=== PATIENT | female | born 1950 | race Caucasian/White ===

== ENCOUNTER → 2019-09-09 08:20 | Outpatient (BNVA) | payer MEDICARE, SELFPAY | PROVIDERS: Family Provider Family Medicine; PCP Family Medicine; Visit Provider Nurse Practitioner Psychiatric/Mental Health | DX: F33.3 Major depressive disorder, recurrent, severe with psychotic symptoms (principal); F43.12 Post-traumatic stress disorder, chronic; G47.30 Sleep apnea, unspecified | CPT/HCPCS: 99214; 99215 ==

== ENCOUNTER 2019-09-24 22:05 | Emergency (ER) | payer MEDICARE, SELFPAY ==
[2019-09-24 22:13] VITALS: BP 224/95; PULSE 101; RESP 18; TEMP 36.7; BMI 38.7
--- NOTE | 2019-09-24 22:21 | ED_ITS ---
Entered by Halle Alfonso, acting as scribe for HPI - General Adult General: Chief complaint: General Medical Stated complaint: high bp Time Seen by Provider: 09/24/19 22:21 Source: patient Mode of arrival: wheelchair Limitations: no limitations History of Present Illness: HPI narrative: Myesha is a very nice 68-year-old female who comes in with a primary complaint of high blood pressure. She states that her blood pressure is out of control ranging as high as over 200 systolic tonight. She states that she has had a headache primarily that is what prompted her to check this. She states that she may have had some fluttering or vague chest discomfort that lasted just a few seconds but otherwise denies any chest pain, shortness of breath, vomiting or upper back pain. She is not been diaphoretic. She also complains of some generalized abdominal discomfort. She states this is been intermittent for the past few days along with nausea. She is is because of this she did not take her blood pressure medications this morning. She knows that that is why her blood pressure is elevated but she still feels nauseated and does not want to take these medications. MD complaint: high blood pressure Location: head and chest Radiation: non-radiation Severity: moderate Pain Consistency: constant Associated symptoms: Reports chest pain, fevers/chills, headache(s) and other (abdomen pain) Treatments prior to arrival: none Review of Systems Card: Reports: chest pain Neuro: Reports: headache [facility] ED PFSH: Statuses (acute, chronic, etc) shown below reflect problem list status as previously entered and may not be historically accurate Social History (Updated 09/09/19 @ 08:56 by Lisa Simmons LPN) Smoking and tobacco status: former smoker Quit status (tobacco): has quit using tobacco Year quit tobacco: 2005 Second hand smoke exposure: No Course Vital Signs: Vital signs: Vital Signs Temperature 98.1 F 09/24/19 22:13 Pulse Rate 86 09/25/19 02:02 Respiratory Rate 20 H 09/25/19 02:02 Blood Pressure 190/74 09/25/19 02:02 Pulse Oximetry 99 09/25/19 02:02 MDM - General Adult MDM Narrative: Medical decision making narrative: Maribell is a 68-year-old female who comes in with multiple complaints. Her primary complaint is that of high blood pressure causing what she feels primarily is a headache. She has some vague palpitations or chest discomfort but this only lasted for a short time. She also has nausea and some vague abdominal discomfort and this is why she did not take her blood pressure medications today. Patient CT of the head is normal CT abdomen pelvis shows nonspecific issues that she wants to follow-up on I see no evidence of acute blockage of her kidneys and there is no sign of bowel obstruction or focal GI problem which we were most concerned about. They were aware of her renal masses and her doctor is watching them. The patient's EKGs are at baseline with a right bundle branch block and her troponin has not trended up to rule in for a non-STEMI. Her blood pressure is down at this time at 176/95 with just 1 dose of labetalol. I have offered and recommended to put the patient in the hospital for a formal rule out and for stress testing but she refuses. She states to be more comfortable at home and does not want to come in for further testing. She does not believe her chest discomfort to be anything of significance. I have offered again and told her that this could be the something of something more severe but despite this she wants to go home understanding that this could be a threat to her life if a high heart problem. The patient agrees to go home and take her blood pressure medicines first thing this morning and she will follow-up with Dr. Gandhi and make an appointment to see Dr. Chen. It is possible she may have a UTI so I will place her on Omnicef and give her Zofran for her nausea but at this time she states she is feeling much better. She does still have a small headache and I will give her something for that as well. Lab Data: Attestation: I reviewed the patient's lab results. Labs: Lab Results 09/24/19 09/25/19 09/25/19 Range/Units 22:40 00:19 00:19 WBC 10.2 H (4.0-10.0) 10^3/ uL RBC 4.05 L (4.1-5.3) 10^6/u L Hgb 11.9 (11.5-15.3) g/dL Hct 35.8 L (37.0-47.0) % MCV 88.4 (81-99) fL MCH 29.4 (28.0-34.0) pg MCHC 33.2 (30.0-36.0) g/dL RDW 13.3 (12.1-15.1) % Plt Count 283 (130-400) 10^3/c mm MPV 9.3 (7.4-10.4) fL Neut % (Auto) 84.9 % Lymph % (Auto) 8.3 % Karnes % (Auto) 6.2 % Eos % (Auto) 0.0 % Baso % (Auto) 0.1 % Neut # (Auto) 8.7 H (1.8-7.7) 10^3/u L Lymph # (Auto) 0.8 (0.8-4.8) 10^3/u L Karnes # (Auto) 0.6 (0.2-0.9) 10^3/u L Eos # (Auto) 0.0 (0.0-0.8) 10^3/u L Baso # (Auto) 0.0 (0.0-0.1) 10^3/u L Nucleated RBC % (a uto) 0 % Nucleated RBCs # 0.0 /100WBC Sodium 139 (136-145) mmol/L Potassium 3.2 L (3.5-5.1) mmol/L Chloride 93 L (98-107) mmol/L Carbon Dioxide 29 (22-29) mmol/L Anion Gap 20.2 H (5-19) BUN 16 (8-23) mg/dL Creatinine 1.0 H (0.5-0.9) mg/dL GFR Calculation 54.8 L (90-130) mL/min Glucose 379 H (74-106) mg/dL Calcium 11.2 H (8.5-10.5) mg/dL Magnesium 1.7 (1.7-2.3) mg/dL Total Bilirubin 0.6 (0.15-1.2) mg/dL AST 53 H (0-32) U/L ALT 36 H (0-33) U/L Alkaline Phosphata se 152 H (35-105) IU/L Troponin T Baselin e 29 H (0-10) ng/mL Troponin T 120 Min [place] (0-10) ng/mL Delta Troponin T (0-10) ABS# NT-Pro-B Natriuret Pep 716 H (0-125) pg/mL Total Protein 8.2 (6.6-8.7) g/dL Albumin 4.3 (3.5-5.2) g/dL Globulin 3.9 (1.3-4.6) g/dL Urine Color (Yellow) Urine Appearance (CLEAR) Urine pH (5-7) Ur Specific Gravit y (1.005-1.030) Urine Protein (Negative) Urine Glucose (UA) (Normal) Urine Ketones (Negative) Urine Occult Blood (Negative) Urine Nitrate (Negative) Urine Bilirubin (NEGATIVE) Urine Urobilinogen (Negative) mg/dL Ur Leukocyte Dorota ase (Negative) Urine RBC (0-2) /hpf Urine WBC (0-5) /hpf Ur Squamous Epith Cells (0-5) Ur Transition Epit h Cell /hpf Urine Bacteria (NONE) Hyaline Casts 09/25/19 09/25/19 Range/Units 00:19 02:04 WBC (4.0-10.0) 10^3/ uL RBC (4.1-5.3) 10^6/u L Hgb (11.5-15.3) g/dL Hct (37.0-47.0) % MCV (81-99) fL MCH (28.0-34.0) pg MCHC (30.0-36.0) g/dL RDW (12.1-15.1) % Plt Count (130-400) 10^3/c mm MPV (7.4-10.4) fL Neut % (Auto) % Lymph % (Auto) % Karnes % (Auto) % Eos % (Auto) % Baso % (Auto) % Neut # (Auto) (1.8-7.7) 10^3/u L Lymph # (Auto) (0.8-4.8) 10^3/u L Karnes # (Auto) (0.2-0.9) 10^3/u L Eos # (Auto) (0.0-0.8) 10^3/u L Baso # (Auto) (0.0-0.1) 10^3/u L Nucleated RBC % (a uto) % Nucleated RBCs # /100WBC Sodium (136-145) mmol/L Potassium (3.5-5.1) mmol/L Chloride (98-107) mmol/L Carbon Dioxide (22-29) mmol/L Anion Gap (5-19) BUN (8-23) mg/dL Creatinine (0.5-0.9) mg/dL GFR Calculation (90-130) mL/min Glucose (74-106) mg/dL Calcium (8.5-10.5) mg/dL Magnesium (1.7-2.3) mg/dL Total Bilirubin (0.15-1.2) mg/dL AST (0-32) U/L ALT (0-33) U/L Alkaline Phosphata se (35-105) IU/L Troponin T Baselin e (0-10) ng/mL Troponin T 120 Min [place] 31.88 H (0-10) ng/mL Delta Troponin T 2.88 (0-10) ABS# NT-Pro-B Natriuret Pep (0-125) pg/mL Total Protein (6.6-8.7) g/dL Albumin (3.5-5.2) g/dL Globulin (1.3-4.6) g/dL Urine Color Yellow (Yellow) Urine Appearance Clear (CLEAR) Urine pH 6 (5-7) Ur Specific Gravit y 1.010 (1.005-1.030) Urine Protein 2+ H (Negative) Urine Glucose (UA) 4+ H (Normal) Urine Ketones Negative (Negative) Urine Occult Blood 3+ H (Negative) Urine Nitrate Negative (Negative) Urine Bilirubin Neg (NEGATIVE) Urine Urobilinogen Norm (Negative) mg/dL Ur Leukocyte Dorota ase Negative (Negative) Urine RBC 10-15 H (0-2) /hpf Urine WBC 0-4 H (0-5) /hpf Ur Squamous Epith Cells 5-10 H (0-5) Ur Transition Epit h Cell 0-4 /hpf Urine Bacteria 1+ H (NONE) Hyaline Casts 0-4 H EKG Data^: EKG 1: Attestation: I personally reviewed and interpreted this EKG as follows: EKG interpretation date: 09/24/19 EKG interpretation time: 22:40 Interpretation: Normal sinus rhythm at 90 beats a minute, first-degree AV block, right bundle branch block, LVH, similar to previous. Computer generated interpretation: Head CT 09/24/19 23:58 IMPRESSION: No acute intracranial abnormality. Radiation Dose CTDIVOL = (mGy): DLP = 1707 (mGy-cm) EKG 2: Attestation: I personally reviewed and interpreted this EKG as follows: EKG interpretation date: 09/25/19 EKG interpretation time: 00:53 Interpretation: Normal sinus rhythm at 84 beats a minute, LVH, right bundle branch block, first-degree AV block, no other acute findings. Similar to previous. Computer generated interpretation: Head CT 09/24/19 23:58 IMPRESSION: No acute intracranial abnormality. Radiation Dose CTDIVOL = (mGy): DLP = 1707 (mGy-cm) EKG 3: Attestation: I personally reviewed and interpreted this EKG as follows: EKG interpretation date: 09/25/19 EKG interpretation time: 04:30 Interpretation: Normal sinus rhythm at 87 beats a minute, first-degree AV block, right bundle branch block, LVH, unchanged from previous. Computer generated interpretation: Head CT 09/24/19 23:58 IMPRESSION: No acute intracranial abnormality. Radiation Dose CTDIVOL = (mGy): DLP = 1707 (mGy-cm) Discharge Plan Discharge Patient Disposition: Home, Self-Care Clinical Impression: Acute UTI Hypertension Qualifiers: Hypertension type: essential hypertension Qualified Code(s): I10 - Essential (primary) hypertension Abdominal pain Qualifiers: Abdominal location: generalized Qualified Code(s): R10.84 - Generalized abdominal pain Condition: Stable Prescriptions: New Zofran 4 mg tablet 4 mg PO DAILY PRN (Reason: nausea and vomiting) 5 Days RF: 0 cefdinir 300 mg capsule 300 mg PO Q12H 10 Days Qty: 20 RF: 0 No Action aspirin 325 mg tablet 325 mg PO .QHS RF: 0 tramadol 50 mg tablet 50 mg PO Q8H PRN (Reason: pain) RF: 0 Novolin 70/30 U-100 Insulin 100 unit/mL (70-30) suspension 80 unit SUBCUT BID RF: 0 furosemide [Lasix] 20 mg tablet 30 mg PO .every other day RF: 0 metoprolol tartrate 50 mg tablet 100 mg PO BID RF: 0 hydrocodone-acetaminophen 5-300 mg tablet 1 tab PO TID PRNRF: 0 levothyroxine 175 mcg capsule 175 mcg PO DAILY RF: 0 tizanidine 4 mg capsule 4 mg PO .COMPLEX PRNRF: 0 pantoprazole [Protonix] 40 mg tablet,delayed release (DR/EC) 40 mg PO BID RF: 0 potassium chloride 20 mEq tablet extended release 20 meq PO BID RF: 0 albuterol sulfate [ProAir HFA] 90 mcg/actuation HFA aerosol inhaler 2 puff INHALATION Q6H PRNRF: 0 aripiprazole [Abilify] 5 mg tablet 5 mg PO DAILY Qty: 30 RF: 1 buspirone 5 mg tablet 5 mg PO BID Qty: 60 RF: 1 duloxetine [Cymbalta] 60 mg capsule,delayed release(DR/EC) 60 mg PO QAM Qty: 30 RF: 1 duloxetine [Cymbalta] 30 mg capsule,delayed release(DR/EC) 30 mg PO QAM Qty: 30 RF: 1 Discharge Orders: Discharge Order (Routine); Ordered 09/25/19 Ordered By: Candice Menjivar Referrals: Jada Gandhi MD [Primary Care Provider] - 1-3 days Dennis Chen MD [Physician] - 1-3 days Discharge Diet: Advance as tolerated Discharge Activity: Increase activity as tolerated Patient Instructions: Urinary Tract Infection in Women (ED), Abdominal Pain (ED), Hypertension (ED) Activity Restrictions/Additional Instructions: Please return to the ER immediately for any of the signs or symptoms listed on your discharge instruction sheets, worsening/changing of your symptoms, you are not getting better as quickly as expected, or for ANY other cause or concerns. Be certain to follow-up with Dr. Chen concerning your kidney masses. If you develop worsening abdominal pain or have any other new symptoms such as fever or vomiting please return to the ER immediately. Take your blood pressure medications as prescribed and please do not miss any doses. It is possible you that you have a UTI so take the antibiotics as I have prescribed. If for any reason you feel worse please return to the ER immediately for recheck. I have recommended and offered to keep you for further cardiac testing but you have declined, of course any heart problem could be life-threatening so if your symptoms change or worsen in any way you are more than welcome to return to the ER for further evaluation and care. Coding Level of Care Code ED Heavy Forging Machine Operator for Chg Fwd The documentation recorded by the Kaden varner Bridget Annette, accurately reflects the service I personally performed and the decisions made by me, Candice Menjivar Sep 24, 2019 22:05
--- NOTE | 2019-09-24 22:25 | ECG_ITS ---
Measurements Intervals [place] Rate: 90 P: 61 CA: 238 QRS: -70 QRSD: 162 T: 38 QT: 464 QTc: 568 SINUS RHYTHM WITH FIRST DEGREE AV BLOCK RIGHT BUNDLE BRANCH BLOCK [120+ ms QRS DURATION, UPRIGHT V1, 40+ ms S IN I/aVL/V4/V5/V6] LEFT ANTERIOR FASCICULAR BLOCK [QRS AXIS <= -45, QR IN I, RS IN II] VOLTAGE CRITERIA FOR LVH [MEETS CRITERIA IN ONE OF: R(aVL), S(V1), R(V5), R (V5/V6)+S(V1)] POSSIBLE SEPTAL MYOCARDIAL INFARCTION , OF INDETERMINATE AGE [30 ms Q WAVE IN V1/V2] Compared to ECG 03/11/2019 18:34:07 Left ventricular hypertrophy now present Myocardial infarct finding now present Electronically Signed On 09-25-2019 11:31:53 [employer] by Min Tipton M.D. [id number]
[2019-09-24 23:01] LABS: Troponin(5th) Baseline 29 ng/mL (0-10)
--- NOTE | 2019-09-24 23:56 | XR_ITS ---
WS: [id number] Portable AP upright chest, 09/25/2019 Clinical Data: cough Comparison: Portable chest, 07/30/2019 Findings: No nodules, masses or effusions are seen. The heart is slightly enlarged. The pulmonary vas cularity is not increased. No pneumonia or pneumothorax is seen. The aortic arch and descending aorta show calcification and tortuosity. Monitor leads on the chest wall. XR/XR chest 1V portable [id number] Impression: Cardiomegaly and atherosclerosis.
--- NOTE | 2019-09-24 23:58 | CTR_ITS ---
PROCEDURE INFORMATION: Exam: CT Head Without Contrast Exam date and time: 09/24/2019 12:15 AM Age: 68 years old Clinical indication: Pain; Altered mental status/memory loss; Headache; Additional info: Rainey/ams TECHNIQUE: Imaging protocol: Computed tomography of the head without contrast. Total DLP: 1707 mGy-cm Radiation optimization: All CT scans at this facility use at least one of these dose optimization techniques: automated exposure control; mA and/or kV adjustment per patient size (includes targeted exams where dose is matched to clinical indication); or iterative reconstruction. COMPARISON: CT head wo con* [id number] 07/02/2019 10:19 PM FINDINGS: Brain: Normal. No hemorrhage. Unremarkable white matter. No mass effect. Ventricles: Normal. No ventriculomegaly. Bones/joints: Unremarkable. No acute fracture. Sinuses: Visualized sinuses are unremarkable. No fluid levels. Mastoid air cells: Visualized mastoid air cells are well aerated. Soft tissues: Unremarkable. CT/CT head wo con* [id number] IMPRESSION: No acute intracranial abnormality. Radiation Dose CTDIVOL = (mGy): DLP = 1707 (mGy-cm)
--- NOTE | 2019-09-25 00:25 | ECG_ITS ---
Measurements Intervals [place] Rate: 87 P: 37 MD: 243 QRS: -62 QRSD: 152 T: 32 QT: 438 QTc: 529 SINUS RHYTHM WITH FIRST DEGREE AV BLOCK RIGHT BUNDLE BRANCH BLOCK [120+ ms QRS DURATION, UPRIGHT V1, 40+ ms S IN I I/aVL/V4/V5/V6] LEFT ANTERIOR FASCICULAR BLOCK [QRS AXIS <= -45, QR IN I, RS IN II] LEFT VENTRICULAR HYPERTROPHY AND ST-T CHANGE [VOLTAGE CRITERIA PLUS ST/T ABN ABNORMALITY] POSSIBLE SEPTAL MYOCARDIAL INFARCTION , OF INDETERMINATE AGE [30 ms Q WAVE IN V1 V1/V2] Compared to ECG 03/11/2019 18:34:07 Left ventricular hypertrophy now present ST (T wave) deviation now present Myocardial infarct finding now present Electronically Signed On 09-25-2019 11:37:43 ANALYST PROGRAMMER by Min Tipton M.D. [id number]
[2019-09-25 00:30] LABS: Basophils % 0.1 %; Hematocrit 35.8 % (37.0-47.0); Hemoglobin 11.9 g/dL (11.5-15.3); Lymphocytes # 0.8 10^3/uL (0.8-4.8); Lymphocytes % 8.3 %; Mean Corpuscular HGB Conc 33.2 g/dL (30.0-36.0); Mean Corpuscular Hemoglobin 29.4 pg (28.0-34.0); Mean Corpuscular Volume 88.4 fL (81-99); Mean Platelet Volume 9.3 fL (7.4-10.4); Monocytes # 0.6 10^3/uL (0.2-0.9); Monocytes % 6.2 %; Neutrophils # 8.7 10^3/uL (1.8-7.7); Neutrophils % 84.9 %; Nucleated Red Blood Cells % 0 %; Platelet Count 283 10^3/cmm (130-400); Red Blood Count 4.05 10^6/uL (4.1-5.3); Red Cell Distribution Width 13.3 % (12.1-15.1); White Blood Count 10.2 10^3/uL (4.0-10.0)
[2019-09-25 00:51] LABS: Troponin 5 2HR 31.88 ng/mL (0-10); Troponin 5 2HR Delta 2.88 ABS# (0-10)
--- NOTE | 2019-09-25 00:52 | PC.NURSE ---
EKG done at 0050 and shown to ER doctor.
[2019-09-25 01:00] LABS: Alanine Aminotransferase 36 U/L (0-33); Albumin Level 4.3 g/dL (3.5-5.2); Alkaline Phosphatase 152 IU/L (35-105); Anion Gap 20.2 (5-19); Aspartate Amino Transferase 53 U/L (0-32); Blood Urea Nitrogen 16 mg/dL (8-23); Calcium 11.2 mg/dL (8.5-10.5); Carbon Dioxide 29 mmol/L (22-29); Chloride 93 mmol/L (98-107); Globulin 3.9 g/dL (1.3-4.6); Glomerular Filtration Rate 54.8 mL/min (90-130); Glucose 379 mg/dL (74-106); Magnesium 1.7 mg/dL (1.7-2.3); NT Pro B Type Natriuretic Pept 716 pg/mL (0-125); Potassium 3.2 mmol/L (3.5-5.1); Sodium 139 mmol/L (136-145); Total Bilirubin 0.6 mg/dL (0.15-1.2); Total Protein 8.2 g/dL (6.6-8.7)
--- NOTE | 2019-09-25 01:49 | CTR_ITS ---
PROCEDURE INFORMATION: Exam: CT Abdomen And Pelvis With Contrast Exam date and time: 09/25/2019 1:56 AM Age: 68 years old Clinical indication: Abdominal pain; Acute; Prior surgery; Surgery date: 6+ months; Surgery type: Hysterectomy TECHNIQUE: Imaging protocol: Computed tomography of the abdomen and pelvis with intravenous contrast. Total DLP: 2057.78 mGy-cm Radiation optimization: All CT scans at this facility use at least one of these dose optimization techniques: automated exposure control; mA and/or kV adjustment per patient size (includes targeted exams where dose is matched to clinical indication); or iterative reconstruction. Contrast material: VISI; Contrast volume: 95 ml; Contrast route: 20G; COMPARISON: CT abdomen pelvis w con* [id number] 10/06/2018 5:58 PM FINDINGS: Lungs: Continued slight stranding in the lung bases. Calcified granuloma in the lateral left lung base again evident. Heart: Interval cardiac prominence. Liver: No change in the 7 mm low-density mass in the medial dome of the liver. No new liver mass. Gallbladder and bile ducts: Interval cholecystectomy. No biliary ductal dilatation. Pancreas: Pancreas still unremarkable. Spleen: Still no splenomegaly. Adrenals: Still no adrenal mass. Kidneys and ureters: Continued small stone in the right lower and left upper kidney. No obvious change in size of the 12 mm mass arising from the posterior margin of the left upper kidney, but apparent increase in density within it from 18 HU to 26 HU. Continued approximately 14 mm intracortical mass in the lower left kidney. Interval slight enlargement of the 7 mm mass arising from the margin of the left lower renal pole. Subcentimeter foci of decreased density still present in both renal cortices in addition to other subcentimeter masses arising from left renal margins. Interval minimal dilatation of parts of both renal collecting systems. No ureteral stone or dilatation. Stomach and bowel: Interval appearance of medication in the proximal stomach. Still no gastric distension. Still no obstruction. Appendix: Continued normal appendix. Intraperitoneal space: Still no free air. Vasculature: Continued atherosclerosis. Still no aortic aneurysm. Lymph nodes: Continued small calcified nodes along the distal esophagus. Continued almost complete fatty replacement of an enlarged left external iliac node and smaller nodes along the left side of the aortic bifurcation. No interval suspicious abdominal or pelvic nodes. Bladder: Still no apparent bladder disease. Reproductive: Hysterectomy again evident. Bones/joints: Old compression fractures again evident. Continued prominent degeneration of several discs and lesser degrees of degeneration of other discs. Prominent degeneration of multiple lumbar facet joints still present. Interval slight worsening of the mild left convex lumbar scoliosis. Soft tissues: Continued soft tissue calcifications along the superior margin of the left greater trochanter. Interval appearance of the minimal supraumbilical hernia containing fat. CT/CT abdomen pelvis w con* [id number] IMPRESSION: 1. Interval minimal dilatation of parts of both renal collecting systems, age unknown. No obstructing ureteral stone. No change in the small stone in each kidney. 2. Interval apparent increase in density within the 12 mm left upper renal mass and slight enlargement of a subcentimeter left lower renal mass, but no significant change in the other renal masses or foci of decreased density within the renal cortices. Considering the density change in the left upper renal mass, recommend follow-up renal MR without and with contrast or CT without and with contrast. MR is preferred for masses under 1.5 cm. 3. Continued subcentimeter probable cyst in the dome of the liver. 4. Interval cholecystectomy. Other findings detailed above. Radiation Dose CTDIVOL = (mGy): DLP = 2057.78 (mGy-cm)
[2019-09-25 02:02] VITALS: BP 190/74; PULSE 86; RESP 20; O2SAT 99
[2019-09-25] MEDS: iodixanol 320 mg/mL 100mL Btl IV (02:36)
[2019-09-25 02:47] LABS: Bilirubin Urine Neg (NEGATIVE); Blood Urine 3+ (Negative); Glucose Urine UA 4+ (Normal); Ketones Urine Negative (Negative); Leukocyte Esterase Urine Negative (Negative); Nitrate Urine Negative (Negative); Protein Urine 2+ (Negative); Urine Appearance Clear (CLEAR); Urine Color Yellow (Yellow); Urobilinogen Urine Norm (Negative); pH Urine 6 (5-7)
[2019-09-25 02:50] LABS: Bacteria Urine 1+; Transitional Epi Cells Urine 0-4 /hpf; WBC Urine 0-4 /hpf (0-5)
[2019-09-25 02:51] LABS: Add Urine Culture? Yes; Hyaline Casts Urine 0-4
[2019-09-25] MEDS: labetalol 5 mg/mL SDV 20mL 10 MG IVP (03:07)
--- NOTE | 2019-09-25 04:25 | ECG_ITS ---
Measurements Intervals [place] Rate: 84 P: 50 TN: 224 QRS: -70 QRSD: 169 T: 32 QT: 506 QTc: 601 SINUS RHYTHM WITH FIRST DEGREE AV BLOCK RIGHT BUNDLE BRANCH BLOCK [120+ ms QRS DURATION, UPRIGHT V1, 40+ ms S IN I/aVL/V4/V5/V6] LEFT ANTERIOR FASCICULAR BLOCK [QRS AXIS <= -45, QR IN I, RS IN II] VOLTAGE CRITERIA FOR LVH [MEETS CRITERIA IN ONE OF: R(aVL), S(V1), R(V5), R (V5/V6)+S(V1)] POSSIBLE SEPTAL MYOCARDIAL INFARCTION , OF INDETERMINATE AGE [30 ms Q WAVE IN V1/V2] Compared to ECG 03/11/2019 18:34:07 Left ventricular hypertrophy now present Myocardial infarct finding now present Electronically Signed On 09-25-2019 11:37:16 [employer]ING CUTTER by Min Tipton M.D. [id number]
--- NOTE | 2019-09-25 04:40 | PC.NURSE ---
EKG done at 0430 and shown to ER doctor.
--- NOTE | 2019-09-25 04:43 | PC.NURSE ---
Noticed while doing patient's EKG patient seemed a little confused and seemed to struggle with instructions and tried reaching for the EKG leads thinking that they were water. I did post the question if she is able to have water. Informed nurse of observations.
[2019-09-25 05:17] VITALS: BP 190/99; PULSE 87; RESP 25
[2019-09-25] MEDS: ondansetron 2 mg/ML SDV 2 mL 4 MG IVP (05:30)
[2019-09-25] MEDS: HYDROcodone-acetaminophen 5-325 mg Tablet 1 TAB PO (05:30)
[2019-09-25] MEDS: cefTRIAXone 1,000 MG in sodium chloride 0.9% (plus) 50 ML 100 MG IV (05:30)
--- NOTE | 2019-09-25 10:05 | DCPLANNER ---
retail merchandising manager had message to schedule a follow up appointment for patient with Dr. Chen. retail merchandising manager called the office of Dr. Chen, spoke with Megha. retail merchandising manager gave clinic patients information, pillowcase turner was told that patients information would be printed and given to Shannan. Clinic will call patient with appointment information. retail merchandising manager will call for appointment information.
--- NOTE | 2019-09-26 15:33 | DCPLANNER ---
Patient has an appointment scheduled for , October 16, [address] at 2:[address] Chen.
--- NOTE | 2019-11-05 15:30 | DCPLANNER ---
appointment scheduled for 10.16.29 has been rescheduled.
== END 2019-09-25 05:40 | disposition home or self-care (01) ==
PROVIDERS: Emergency Provider Emergency Medicine; Family Provider Family Medicine; PCP Family Medicine
DX: I10 Essential (primary) hypertension (principal); N39.0 Urinary tract infection, site not specified; Z79.82 Long term (current) use of aspirin; Z79.4 Long term (current) use of insulin; Z87.891 Personal history of nicotine dependence
CPT/HCPCS: 36415; 70450; 71045; 74177; 80053; 81001; 83735; 83880; 84484; 85025; 87086; 93005; 96365; 96374; 99283; A9270; J0696; J2405; J3490; Q9967

== ENCOUNTER → 2019-10-02 07:59 | Outpatient (BNVA) | payer MEDICARE, SELFPAY | PROVIDERS: Family Provider Family Medicine; PCP Family Medicine; Visit Provider Anesthesiology | DX: G89.29 Other chronic pain (principal); M54.5 Low back pain; M79.651 Pain in right thigh; M79.652 Pain in left thigh; R10.84 Generalized abdominal pain; Z79.891 Long term (current) use of opiate analgesic | CPT/HCPCS: 99214 ==

== ENCOUNTER 2019-10-12 09:24 | Inpatient (IN) | payer MEDICARE, SELFPAY ==
[2019-10-12] VITALS (45 sets, daily range): BP systolic 66–153; BP diastolic 36–80; PULSE 14–81; RESP 6–75; TEMP 36.4–36.6; O2SAT 93–100; BMI 38.2
--- NOTE | 2019-10-12 09:37 | ED_ITS ---
Entered by Halle Alfonso, acting as scribe for Karma Garner MD HPI - Weakness General: Chief complaint: Nausea/Vomiting/Diarrhea Stated complaint: Low blood pressure Time Seen by Provider: 10/12/19 09:31 Source: patient and family (spouse) Mode of arrival: wheelchair Limitations: no limitations History of Present Illness: MD Complaint: generalized weakness and difficulty walking Onset (ago): day(s) (today) Duration: constant and progressively worsening Migration: none Severity: moderate Quality: sharp Relieving factors: none Exacerbating factors: movement and exertion Associated symptoms: Reports other (diarrhea,abdomen pain) Review of Systems General: Reports: 10 or more systems reviewed and unremarkable except in HPI and below Const: Reports: body aches and fatigue Card: Reports: lightheadedness GI: Reports: abdominal pain and diarrhea Neuro: Reports: difficulty walking PFSH ED PFSH: Surgical History (Updated 10/02/19 @ 08:54 by Michael Lozano MD) History of cardiac cath History of hysterectomy History of knee replacement History of thyroid surgery Social History Smoking and tobacco status: never smoked Quit status (tobacco): has quit using tobacco Year quit tobacco: 2005 Second hand smoke exposure: No Physical Exam Const: COMMON NORMALS: no apparent distress and oriented x3 GENERAL APPEARANCE: ill appearing HENMT: COMMON NORMALS: normocephalic and head/scalp atraumatic HEAD & SCALP: normocephalic and atraumatic Eye: COMMON NORMALS: PERRL and EOMs intact bilaterally PUPIL: Yes PERRL Neck/C-Spine: COMMON NORMALS: full ROM and supple Chest: COMMONS NORMALS: inspection of chest normal and palpation of chest normal Resp: COMMON NORMALS: normal respiratory effort, no retractions, no use of accessory muscles and clear to auscultation bilaterally AUSCULTATION: clear to auscultation bilaterally Cardio: COMMON NORMALS: regular rate, regular rhythm and no murmurs RATE: regular rate RHYTHM: regular rhythm GI: COMMON NORMALS: normal to inspection, nondistended, normoactive bowel sounds, soft to palpation, non-tender and no masses PALPATION: Yes soft Extremity: COMMON NORMALS: normal to inspection and full ROM Neuro: COMMON NORMALS: oriented x3, moves all extremities and no focal motor deficits Psych: COMMON NORMALS: mental status grossly normal, thought process normal and cooperative THOUGHT PROCESS: normal thought process Skin: COMMON NORMALS: no rashes or lesions noted and no wounds GENERAL SKIN EXAM: no rashes or lesions noted Course Vital Signs: Vital signs: Vital Signs Temperature 97.5 F L 10/12/19 09:30 Pulse Rate 75 10/12/19 09:30 Respiratory Rate 20 H 10/12/19 09:30 Blood Pressure 93/48 10/12/19 11:01 Pulse Oximetry 94 10/12/19 09:30 MDM - Weakness MDM Narrative: Medical decision making narrative: Patient presents with vomiting and diarrhea likely causing a dehydration. Patient hypotension here is improving with IV fluids. She does have an elevated lactate likely due to dehydration. Her white count is normal and she has no fever. I spoke to hospitalist will hold off on antibiotics at this time per her request to see if patient does respond to fluids. She has no abdominal pain. Will admit to the ICU to Dr. colbert Lab Data: Labs: Lab Results 10/12/19 10/12/19 10/12/19 Range/Units 09:44 09:44 09:44 WBC 9.4 (4.0-10.0) 10^3/ uL RBC 4.15 (4.1-5.3) 10^6/u L Hgb 12.2 (11.5-15.3) g/dL Hct 38.1 (37.0-47.0) % MCV 91.8 (81-99) fL MCH 29.4 (28.0-34.0) pg MCHC 32.0 (30.0-36.0) g/dL RDW 12.9 (12.1-15.1) % Plt Count 238 (130-400) 10^3/c mm MPV 10.1 (7.4-10.4) fL Neut % (Auto) 73.8 % Lymph % (Auto) 15.9 % Gregory % (Auto) 9.0 % Eos % (Auto) 0.6 % Baso % (Auto) 0.5 % Neut # (Auto) 6.9 (1.8-7.7) 10^3/u L Lymph # (Auto) 1.5 (0.8-4.8) 10^3/u L Gregory # (Auto) 0.9 (0.2-0.9) 10^3/u L Eos # (Auto) 0.1 (0.0-0.8) 10^3/u L Baso # (Auto) 0.1 (0.0-0.1) 10^3/u L Nucleated RBC % (a uto) 0 % Nucleated RBCs # 0.0 /100WBC Sodium 143 (136-145) mmol/L Potassium 3.3 L (3.5-5.1) mmol/L Chloride 98 (98-107) mmol/L Carbon Dioxide 27 (22-29) mmol/L Anion Gap 21.3 H (5-19) BUN 35 H (8-23) mg/dL Creatinine 2.2 H (0.5-0.9) mg/dL Glucose 224 H (65-115) mg/dL Lactate 3.8 H (0.5-2.2) mmol/L Calcium 9.7 (8.5-10.5) mg/dL Total Bilirubin 0.4 (0.15-1.2) mg/dL AST 121 H (0-32) U/L ALT 66 H (0-33) U/L Alkaline Phosphata se 130 H (35-105) IU/L Total Protein 7.3 (6.6-8.7) g/dL Albumin 3.8 (3.5-5.2) g/dL Globulin 3.5 (1.3-4.6) g/dL Lipase 19 (13-60) U/L Critical Care Time Critical Care Time: Critical Care Time: Yes Total Critical Care Time: 36 Attestation: This case had a high probability of a clinically significant, sudden, or life threatening deterioration of this patient's condition which required my full and direct attention, intervention and personal management. Discharge Plan Discharge Prescriptions: No Action hydroxyzine HCl 25 mg tablet 25 mg PO DAILY PRNRF: 0 hydralazine 25 mg tablet 25 mg PO TID RF: 0 tramadol 50 mg tablet 100 mg PO TID PRN (Reason: pain) 30 Days Qty: 180 RF: 0 tizanidine 4 mg capsule 4 mg PO TID PRN (Reason: muscle spasticity) 30 Days Qty: 90 RF: 0 hydrocodone-acetaminophen 5-325 mg tablet 1 tab PO QID PRN (Reason: pain) 30 Days Qty: 120 RF: 0 amlodipine 10 mg tablet 10 mg PO DAILY RF: 0 digoxin [Digox] 125 mcg (0.125 mg) tablet 125 mcg PO DAILY RF: 0 ergocalciferol (vitamin D2) 50,000 unit tablet PO RF: 0 Forteo 20 mcg/dose - 600 mcg/2.4 mL pen injector 20 mcg SUBCUT DAILY RF: 0 cyclobenzaprine 5 mg tablet 5 mg PO TID PRNRF: 0 garlic 1,000 mg capsule 1,000 mg PO DAILY RF: 0 bupropion HCl 150 mg tablet sustained-release 12 hr 150 mg PO BID RF: 0 ferrous gluconate 324 mg (37.5 mg iron) tablet 324 mg PO DAILY RF: 0 mirtazapine 7.5 mg tablet 7.5 mg PO .BEDTIME RF: 0 black cohosh 200 mg capsule 400 mg PO .TWO TIMES DAILY RF: 0 aspirin 325 mg tablet 325 mg PO .QHS RF: 0 Novolin 70/30 U-100 Insulin 100 unit/mL (70-30) suspension 80 unit SUBCUT BID RF: 0 furosemide [Lasix] 20 mg tablet 30 mg PO .every other day RF: 0 metoprolol tartrate 50 mg tablet 100 mg PO BID RF: 0 levothyroxine 175 mcg capsule 175 mcg PO DAILY RF: 0 pantoprazole [Protonix] 40 mg tablet,delayed release (DR/EC) 40 mg PO BID RF: 0 potassium chloride 20 mEq tablet extended release 20 meq PO BID RF: 0 albuterol sulfate [ProAir HFA] 90 mcg/actuation HFA aerosol inhaler 2 puff INHALATION Q6H PRNRF: 0 aripiprazole [Abilify] 5 mg tablet 5 mg PO DAILY Qty: 30 RF: 1 buspirone 5 mg tablet 5 mg PO BID Qty: 60 RF: 1 duloxetine [Cymbalta] 60 mg capsule,delayed release(DR/EC) 60 mg PO QAM Qty: 30 RF: 1 duloxetine [Cymbalta] 30 mg capsule,delayed release(DR/EC) 30 mg PO QAM Qty: 30 RF: 1 hydrocodone-acetaminophen 5-300 mg tablet 1 tab PO QID PRNRF: 0 Coding Level of Care Code ED Order To Delivery Supervisor for Chg Fwd The documentation recorded by the scribe, Alfonso,Halle Jennifer, accurately reflects the service I personally performed and the decisions made by me, Karma Garner MD Oct 12, 2019 09:24
[2019-10-12] MEDS: ondansetron 2 mg/ML SDV 2 mL 4 MG IVP (09:46)
[2019-10-12] MEDS: sodium chloride 0.9% 1,000 ML 999 ML IV ×3 (09:47→12:30)
[2019-10-12 09:49] LABS: Basophils # 0.1 10^3/uL (0.0-0.1); Basophils % 0.5 %; Eosinophils # 0.1 10^3/uL (0.0-0.8); Eosinophils % 0.6 %; Hematocrit 38.1 % (37.0-47.0); Hemoglobin 12.2 g/dL (11.5-15.3); Lymphocytes # 1.5 10^3/uL (0.8-4.8); Lymphocytes % 15.9 %; Mean Corpuscular Hemoglobin 29.4 pg (28.0-34.0); Mean Corpuscular Volume 91.8 fL (81-99); Mean Platelet Volume 10.1 fL (7.4-10.4); Monocytes # 0.9 10^3/uL (0.2-0.9); Neutrophils # 6.9 10^3/uL (1.8-7.7); Neutrophils % 73.8 %; Nucleated Red Blood Cells % 0 %; Platelet Count 238 10^3/cmm (130-400); Red Blood Count 4.15 10^6/uL (4.1-5.3); Red Cell Distribution Width 12.9 % (12.1-15.1); White Blood Count 9.4 10^3/uL (4.0-10.0)
--- NOTE | 2019-10-12 09:58 | PC.NURSE ---
Patient requesting to use bedside commode. Patient disconnect from monitoring equipment and assisted to bedside commode. at bedside.
[2019-10-12 10:13] LABS: Alanine Aminotransferase 66 U/L (0-33); Albumin Level 3.8 g/dL (3.5-5.2); Alkaline Phosphatase 130 IU/L (35-105); Anion Gap 21.3 (5-19); Aspartate Amino Transferase 121 U/L (0-32); Blood Urea Nitrogen 35 mg/dL (8-23); Calcium 9.7 mg/dL (8.5-10.5); Carbon Dioxide 27 mmol/L (22-29); Chloride 98 mmol/L (98-107); Globulin 3.5 g/dL (1.3-4.6); Glucose 224 mg/dL (65-115); Lipase 19 U/L (13-60); Potassium 3.3 mmol/L (3.5-5.1); Sodium 143 mmol/L (136-145); Total Bilirubin 0.4 mg/dL (0.15-1.2); Total Protein 7.3 g/dL (6.6-8.7)
[2019-10-12 10:34] LABS: Lactate (Lactic Acid level) 3.8 mmol/L (0.5-2.2)
--- NOTE | 2019-10-12 11:17 | XR_ITS ---
WS: [id number] XR chest 1V portable [id number] REASON FOR EXAM: cough FINDINGS: Comparisons were made to September 25, 2019. In the right lung base appears to be subsegmenta l atelectasis with a low-grade infiltrate present. In the left hilum there is lymphadenopathy seen. The heart is not enlarged there is arteriosclerotic changes seen in the arch the aorta. XR/XR chest 1V portable [id number] IMPRESSION: Low-grade pneumonia atelectasis right lung base. Lymphadenopathy left hilum slightly more accentuated than previous exam September 25, 2019. Follow-up evaluation recommended.
--- NOTE | 2019-10-12 11:32 | PC.NURSE ---
Attempted to call report. Nurse not available. ICU staff states the nurse will call back at a later time for report.
--- NOTE | 2019-10-12 12:18 | PC.NURSE ---
Pt arrives from Ed. Alert and oriented. Iv noted in right AC, blood backed up into IV line. IV site flushes easily. Pt able to get out of bed to bedside commode with 1-2 assist. Pt bears her own weight well.
--- NOTE | 2019-10-12 13:11 | P.HP_ITS ---
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 Patient states that she had a [employer] fish sandwich on night and on Sunday morning her symptoms began. She has had this sandwich in the past with no problems. Has not had exposure to any other outside food. She has had some lower abdominal cramping and sharp pain as well, chills and some dysuria. She has been able to tolerate some broth, 7 up and water when taking her medications but otherwise has not had any solid food for the past 2 days. She has had multiple episodes of loose and watery stool but denies any blood in either her urine or her stool. She is chronically on laxatives but states that she has not been taking them since the onset of her symptoms. She is on multiple oral antihypertensives as well. She is a diabetic and is insulin-dependent, states that her blood sugar has been running on the higher side. Her blood pressure tends to be in the 1 40-1 50 systolic range at baseline. She uses 2 L chronically secondary to COPD. She lives at home with her who is p resent at bedside and provides much of the history. Patient is seen on her arrival to ICU, appears fatigued but is otherwise in no acute distress. Most recent blood pressure is 87/40. She is currently receiving her third bolus of IV fluid. Labs done earlier indicate a normal CBC including a white count of 9.4, potassium of 3.3, BUN of 35, creatinine of 2.2, lactate of 3.8, noted transaminitis with an AST of 121, ALT of 66 blood glucose of 224, lipase of 19. UA has been ordered but is pending patient voiding. Chest x-ray is suggestive of pneumonia in the right lung base. A dose of vancomycin has been ordered and I will go ahead and start the patient on ceftriaxone for suspected UTI. Patient is being admitted to ICU secondary to hypotension and need for close monitoring of hemodynamic status with aggressive IV fluid hydration. Review of Systems Const: Reports: chills, change in appetite (decreased appetite) and fatigue; Denies: fever Eyes: Denies: change in vision ENMT: Reports: dry mouth; Denies: painful swallowing Card: Denies: chest pain, swelling of feet/ankles or lightheadedness Resp: Denies: shortness of breath GI: Reports: abdominal pain (lower), nausea, vomiting and diarrhea; Denies: vomiting blood or blood in stool : Reports: painful urination; Denies: difficulty urinating, urinary frequency or blood in urine Musc: Denies: back pain Skin/Breast: Denies: rash Neuro: Denies: numbness in extremities or weakness in extremities Psych: Denies: anxiety Medications/Allergies Home Medications Medication Instructions Recorded Confirmed Last Taken Type Abilify 5 mg PO QAM 10/12/19 10/12/19 10/11/19 History Liver Aid 2 tab PO DAILY 10/12/19 10/12/19 Unknown History acetaminophen [Arthritis Pain 650 mg PO PRN 10/12/19 10/12/19 Unknown History Reliever] albuterol sulfate 2.5 mg INHALATION Q4H PRN 10/12/19 10/12/19 Unknown History atorvastatin [Lipitor] 40 mg PO DAILY 10/12/19 10/12/19 10/11/19 History black cohosh 80 mg PO DAILY 10/12/19 10/12/19 Unknown History carica papaya [Papaya Enzyme] 4 tab PO PRN 10/12/19 10/12/19 Unknown History chlorpheniramine maleate 4 mg PO TID 10/12/19 10/12/19 Unknown History [ChlorTabs] cholecalciferol (vitamin D3) 1,000 unit PO DAILY 10/12/19 10/12/19 10/11/19 History [Vitamin D3] cranberry 2 tab PO QAM 10/12/19 10/12/19 Unknown History cyanocobalamin (vitamin B-12) 1,000 mcg PO DAILY 10/12/19 10/12/19 10/11/19 History [Vitamin B-12] diphenhydramine HCl [Benadryl] 25 mg PO PRN 10/12/19 10/12/19 Unknown History docusate sodium [Stool Softener] 100 mg PO BID PRN 10/12/19 10/12/19 Unknown History loperamide [Anti-Diarrheal 2 - 4 mg PO DIRECTED 10/12/19 10/12/19 10/11/19 History (loperamide)] loratadine 20 mg PO DAILY 10/12/19 10/12/19 Unknown History magnesium L-lactate [Magtab] 84 mg PO BID 10/12/19 10/12/19 10/11/19 History methylsulfonylmethane [MSM] 1,000 mg PO BID 10/12/19 10/12/19 Unknown History nitroglycerin [Nitrostat] 0.4 mg SUBLINGUAL Q5M PRN 10/12/19 10/12/19 Unknown History omega [id number]-fish oil [Ultra 2 cap PO DAILY 10/12/19 10/12/19 10/11/19 History [place]-3] ondansetron HCl [Zofran] 4 mg PO DAILY PRN 10/12/19 10/12/19 Unknown History pantothenic acid (vit B5) 500 mg PO DAILY 10/12/19 10/12/19 10/11/19 History pyridoxine (vitamin B6) [Vitamin 100 mg PO DAILY 10/12/19 10/12/19 Unknown H istory B-6] riboflavin (vitamin B2) [Vitamin 100 mg PO DAILY 10/12/19 10/12/19 Unknown Histo ry B-2] tizanidine See Rx Instructions .ROUTE 10/12/19 10/12/19 10/11/19 History .COMPLEX PRN vitamin E 400 unit PO DAILY 10/12/19 10/12/19 Unknown History zinc 50 mg PO DAILY 10/12/19 10/12/19 Unknown History Allergies Allergy/AdvReac Type Severity Reaction Status Date / Time adhesive tape Allergy rash Verified 10/02/19 08:46 cinnamon Allergy sinus Verified 10/02/19 08:46 codeine Allergy unknown Verified 10/02/19 08:46 cedar Allergy sinus Uncoded 10/02/19 08:46 pine Allergy sinus Uncoded 10/02/19 08:46 PFSH Acute PFSH: Medical History Anxiety and depression Cholecystectomy planned Chronic combined systolic and diastolic CHF (congestive heart failure) COPD (chronic obstructive pulmonary disease) Oxygen dependent, 2 L at baseline Hyperlipidemia Hypertension Hypothyroidism Liver cirrhosis Morbid obesity Recurrent UTI Surgical History History of cardiac cath History of hysterectomy History of knee replacement History of thyroid surgery Family History Other CAD (coronary artery disease) Cancer Denies family history of Anesthesia complication Bleeding disorder Social History (Updated 10/12/19 @ 13:27 by Natali Heart MD) Smoking and tobacco status: never smoked Quit status (tobacco): has quit using tobacco Year quit tobacco: 2005 Second hand smoke exposure: No Household members: spouse Vitals/I&O/Wt Last Vital Signs Temp 97.5 F L 10/12/19 09:30 Pulse 14 L 10/12/19 11:57 Resp 75 H 10/12/19 11:57 BP 115/56 10/12/19 11:57 Pulse Ox 97 10/12/19 11:57 10/11/19 10/12/19 10/12/19 22:59 06:59 14:59 Intake Total 1999 Balance 1999 Weight last 48 hrs Weight 104.326 kg Physical Exam Const: COMMON NORMALS: no apparent distress and oriented x3 GENERAL APPEARANCE: cooperative and comfortable NUTRITIONAL APPEARANCE: obese morbidly obese ORIENTATION/CONSCIOUSNESS: Yes awake OTHER: -Resting in bed, appears fatigued HENMT: COMMON NORMALS: normocephalic, head/scalp atraumatic and hearing grossly normal bilaterally HEAD & SCALP: normocephalic and atraumatic MOUTH: moist mucous membranes abnormal Details: parched Eye: COMMON NORMALS: PERRL, EOMs intact bilaterally and conjunctivae normal CONJUNCTIVA: Yes conjunctivae normal PUPIL: Yes PERRL Neck/C-Spine: COMMON NORMALS: full ROM GENERAL: Yes normal visual inspection and Yes trachea midline Resp: COMMON NORMALS: normal respiratory effort, no retractions, no use of accessory muscles and clear to auscultation bilaterally EFFORT & INSPECTION: Yes able to speak in complete sentences, Yes symmetric chest movement and No tachypneic AUSCULTATION: clear to auscultation bilaterally Cardio: COMMON NORMALS: regular rate, regular rhythm, S1 normal heart sound, S2 normal heart sound and no murmurs RATE: regular rate RHYTHM: regular rhythm HEART SOUNDS: S1 normal and S2 normal GI: COMMON NORMALS: normal to inspection, nondistended, normoactive bowel sounds and soft to palpation INSPECTION: Yes central obesity PALPATION: Yes soft, Yes tender (Periumbilical, right and left lower quadrants), No guarding, No rigid and No rebound tenderness present Extremity: COMMON NORMALS: normal to inspection, full ROM and no clubbing, cyanosis or edema; negative for no pedal edema Neuro: COMMON NORMALS: oriented x3, moves all extremities, no focal motor deficits and no sensory deficits noted Psych: COMMON NORMALS: mental status grossly normal, thought process normal, cooperative, affect normal and speech normal SPEECH: Yes normal speech THOUGHT PROCESS: normal thought process Skin: COMMON NORMALS: no rashes or lesions noted, no jaundice, no petechiae and no mottling GENERAL SKIN EXAM: no rashes or lesions noted Data : 10/12/19 09:44 10/12/19 09:44 A&P Assessment and plan (1) Hypotension due to hypovolemia: -Noted hypotension likely due to hypovolemia from dehydration secondary to ongoing diarrhea and vomiting -Has received 3 L total normal saline boluses, start on maintenance IVF -Continue close monitoring of blood pressure -If persistent hypotension may require pressor support to be initiated to maintain map above 65 -baseline BP is 140-150s systolic -Noted lactate of 3.8, repeat in a.m. following hydration as I am suspicious that this is secondary to agree of dehydration rather than infection Status: Acute Code(s): I95.89 - Other hypotension; E86.1 - Hypovolemia (2) Acute kidney injury: -CYNTHIA superimposed on CKD stage II-III -Secondary to dehydration -Baseline creatinine is around 1 -Continue to monitor renal function -Avoid nephrotoxins, renally dose meds -Monitor urine output Status: Acute Code(s): N17.9 - Acute kidney failure, unspecified (3) Diarrhea: -Stool studies ordered including C. difficile -Unclear etiology currently but no noted leukocytosis, afebrile so would avoid antibiotics unless suspicious for infectious etiology; from report obtained from patient suspicious for gastroenteritis secondary to exposure to outside food as symptoms started shortly after eating [employer] fish sandwich on -IVF as noted above Status: Acute Qualifiers: Diarrhea type: unspecified type Qualified Code(s): R19.7 - Diarrhea, unspecified Code(s): R19.7 - Diarrhea, unspecified (4) Insulin dependent diabetes mellitus: -last A1c-6.9 (2017); repeat ordered -Accu-Cheks; hold scheduled insulin for now -ISS, hypoglycemia precautions -Complicated by peripheral neuropathy Status: Acute Code(s): E11.9 - Type 2 diabetes mellitus without complications; Z79.4 - terminal makeup operator (current) use of insulin Additional A&P Information -Morbid obesity: BMI-38 kg/m2 -HTN; hold oral antihypertensives -Hyperlipidemia; hold statin -hx of liver cirrhosis presumably due to fatty liver disease; noted transaminitis, repeat LFTs in a.m. -Depression/anxiety; hold anxiolytics and antidepressants due to hypotension -Oxygen dependent COPD, 2 L at baseline -Chronic pain, is on chronic narcotics; resume hydrocodone with caution, hold other pain meds due to hypotension -GERD -Lactic acidosis likely secondary to dehydration -GI ppx with PPI -DVT ppx with heparin, SCDs -GI soft diet for now; advance as tolerated -Dispo: home -Code status: FULL code -Admit to ICU due to significant hypotension with need for close monitoring and potentially pressor support Attestations Medical Necessity Statement*: Myesha Parker's hospital stay will require greater than 2 midnights for management of significant hypotension secondary to hypovolemia from ongoing diarrhea and vomiting requiring aggressive IV fluid hydration and close monitoring of hemodynamic status. Time Spent in Patient Care: Greater than 35 minutes (>than 50% of time spent in counselling and/or direct pt care on unit) . Coding Level of Care Code Acute Enrollment Nurse for Dougie Fwsaul Diagnoses Hypotension due to hypovolemia I95.89; E86.1 Acute kidney injury N17.9 Diarrhea R19.7 Diarrhea type: unspecified type Insulin dependent diabetes mellitus E11.9; Z79.4
--- NOTE | 2019-10-12 13:41 | ECG_ITS ---
Measurements Intervals [place] Rate: 67 P: VT: 0 QRS: -56 QRSD: 155 T: 124 QT: 471 QTc: 501 Sinus RHYTHM RIGHT BUNDLE BRANCH BLOCK [120+ ms QRS DURATION, UPRIGHT V1, 40+ ms S IN I/aVL/V4/V5/V6] LEFT ANTERIOR FASCICULAR BLOCK [QRS AXIS <= -45, QR IN I, RS IN II] LEFT VENTRICULAR HYPERTROPHY AND ST-T CHANGE [VOLTAGE CRITERIA PLUS ST/T ABNORMALITY] POSSIBLE SEPTAL MYOCARDIAL INFARCTION [30 ms Q WAVE IN V1/V2], OF INDETERMINATE AGE Compared to ECG 09/25/2019 04:30:59 Sinus rhythm no longer present First degree AV block no longer present ST (T wave) deviation still present Myocardial infarct finding still present Electronically Signed On 10-13-2019 11:24:06 APPLICATION PROGRAMMER ANALYST by Min Tipton M.D. [email or web address]
[2019-10-12 14:12] LABS: Bilirubin Urine 1+ (NEGATIVE); Blood Urine 2+ (Negative); Glucose Urine UA Norm (Normal); Ketones Urine 1+ (Negative); Leukocyte Esterase Urine Trace (Negative); Nitrate Urine Negative (Negative); Protein Urine 1+ (Negative); Specific Gravity, Urine 1.025 (1.005-1.030); Urine Appearance Cloudy (CLEAR); Urine Color Dark Yellow (Yellow); pH Urine 5 (5-7)
[2019-10-12 14:13] LABS: Bacteria Urine 2+; Mucus Urine 1+; Squamous Epithelial Cell Urine 15-25 (0-5); Urobilinogen Urine Norm (Negative)
[2019-10-12] MEDS: cefTRIAXone 1,000 MG in sodium chloride 0.9% (plus) 50 ML 100 MG IV (14:43)
[2019-10-12] MEDS: sodium chlor 0.9% + KCl 20 mEq 20 MEQ/1,000 ML BAG 100 MEQ IV ×2 (14:43→23:46)
[2019-10-12] MEDS: heparin 5,000 unit/mL INJ 1 mL 5000 UNIT SUBCUT ×2 (14:44→21:17)
[2019-10-12] MEDS: HYDROcodone-acetaminophen 5-325 mg Tablet 1 TAB PO ×2 (14:45→21:20)
[2019-10-12 17:08] LABS: Glucose Point of Care 189 mg/dL (70-110)
[2019-10-12] MEDS: BuSPIRONE 5 mg Tablet PO (17:11)
[2019-10-12] MEDS: pantoprazole DR 40 mg Tablet PO (17:11)
--- NOTE | 2019-10-12 19:08 | PC.NURSE ---
Report given to Tammy RN and TAYO Jose. Pt stated she was feeling better. She has NS with 20mEqKCl infusing into right AC IV. Pt has been up to bedside commode with minimum assistance. She had a headache and received hydrcodone, no further complaints of headache noted. , Gerardo, at bedside.
[2019-10-13] VITALS (91 sets, daily range): BP systolic 92–202; BP diastolic 52–127; PULSE 69–88; RESP 3–28; TEMP 36.5–37.2; O2SAT 88–100
[2019-10-13 04:35] LABS: Basophils % 0.6 %; Eosinophils # 0.1 10^3/uL (0.0-0.8); Eosinophils % 1.5 %; Hemoglobin 9.9 g/dL (11.5-15.3); Lymphocytes # 1.1 10^3/uL (0.8-4.8); Lymphocytes % 19.8 %; Mean Corpuscular HGB Conc 31.9 g/dL (30.0-36.0); Mean Corpuscular Hemoglobin 30.1 pg (28.0-34.0); Mean Corpuscular Volume 94.2 fL (81-99); Mean Platelet Volume 9.8 fL (7.4-10.4); Monocytes # 0.6 10^3/uL (0.2-0.9); Monocytes % 10.4 %; Neutrophils # 3.6 10^3/uL (1.8-7.7); Neutrophils % 67.5 %; Nucleated Red Blood Cells % 0 %; Platelet Count 156 10^3/cmm (130-400); Red Blood Count 3.29 10^6/uL (4.1-5.3); Red Cell Distribution Width 12.4 % (12.1-15.1); White Blood Count 5.3 10^3/uL (4.0-10.0)
[2019-10-13 04:48] LABS: Estmated Average Glucose 183
[2019-10-13 04:49] LABS: Lactic Acid level (Lactate) 0.8 mmol/L (0.5-2.2)
[2019-10-13 04:50] LABS: Alanine Aminotransferase 44 U/L (0-33); Albumin Level 2.9 g/dL (3.5-5.2); Alkaline Phosphatase 99 IU/L (35-105); Anion Gap 14.5 (5-19); Aspartate Amino Transferase 60 U/L (0-32); Blood Urea Nitrogen 28 mg/dL (8-23); Calcium 8.1 mg/dL (8.5-10.5); Carbon Dioxide 25 mmol/L (22-29); Chloride 106 mmol/L (98-107); Globulin 3.1 g/dL (1.3-4.6); Glucose 194 mg/dL (65-115); Potassium 3.5 mmol/L (3.5-5.1); Sodium 142 mmol/L (136-145); Total Bilirubin 0.3 mg/dL (0.15-1.2)
[2019-10-13] MEDS: heparin 5,000 unit/mL INJ 1 mL 5000 UNIT SUBCUT ×3 (05:24→21:34)
[2019-10-13] MEDS: HYDROcodone-acetaminophen 5-325 mg Tablet 1 TAB PO ×2 (05:25→21:34)
[2019-10-13 07:23] LABS: Glucose Point of Care 154 mg/dL (70-110)
[2019-10-13] MEDS: ARIPiprazole 10 mg Tablet 5 MG PO (08:48)
[2019-10-13] MEDS: amlodipine 10 mg Tablet PO (08:48)
[2019-10-13] MEDS: FUROsemide 40 mg Tablet PO (08:49)
[2019-10-13] MEDS: BuSPIRONE 5 mg Tablet PO ×2 (08:49→17:02)
[2019-10-13] MEDS: digoxin 125 mcg Tablet PO (08:49)
[2019-10-13] MEDS: levothyroxine 150 mcg Tablet PO (08:50)
[2019-10-13] MEDS: hyDRALAzine 25 mg Tablet PO ×3 (08:50→21:34)
[2019-10-13] MEDS: levothyroxine 25 mcg Tablet PO (08:50)
[2019-10-13] MEDS: pantoprazole DR 40 mg Tablet PO ×2 (08:50→17:02)
[2019-10-13] MEDS: metoprolol tartrate 50 mg Tablet 100 MG PO ×2 (08:50→17:02)
--- NOTE | 2019-10-13 10:24 | PC.NURSE ---
Patient up to chair at this time. Call light within reach and non slip socks applied.
--- NOTE | 2019-10-13 11:11 | P.PN_ITS ---
Subjective Subjective: Interval history: No urine output documented overnight. AM labs noted with significant improvement in creatinine as well as LFTs. Lactic acid down to 0.8 from 3.8. Will discontinue IV fluids. Blood pressure trending up so we will resume oral antihypertensives. Stool studies including C. difficile negative. Patient seen and examined earlier this morning, seems to be a little bit more ill-appearing today though more hemodynamically stable. Will order a CT of the abdomen and pelvis for further evaluation as she continues to complain of lower abdominal discomfort. Minimal oral intake. Has had 3 bowel movement so far today. Medications: Reviewed: Yes Medication Review Details: Current Medications Generic Name Dose Route Start Last Admin Trade Name Freq PRN Reason Stop Dose Admin Hydrocodone Bitart /Acetaminophen 1 tab 10/12/19 13:19 10/13/19 05:25 Enterprise 5-325 Mg PO 1 tab Q6H PRN Administration MODERATE PAIN Amlodipine Besylat e 10 mg 10/13/19 09:00 10/13/19 08:48 Norvasc PO 10 mg DAILY JOCE Administration Aripiprazole 5 mg 10/13/19 09:00 10/13/19 08:48 Abilify PO 5 mg DAILY JOCE Administration Buspirone HCl 5 mg 10/12/19 18:00 10/13/19 08:49 Buspar PO 5 mg BID JOCE Administration Digoxin 125 mcg 10/13/19 09:00 10/13/19 08:49 Lanoxin PO 125 mcg DAILY JOCE Administration Furosemide 40 mg 10/13/19 09:00 10/13/19 08:49 Lasix PO 40 mg EVERY OTHER DAY S CH Administration Heparin Sodium (Be ef Lung) 5,000 unit 10/12/19 14:00 10/13/19 05:24 Heparin SUBCUT 5,000 unit Q8H JOCE Administration Hydralazine HCl 25 mg 10/13/19 09:00 10/13/19 08:50 Apresoline PO 25 mg TID JOCE Administration Ceftriaxone Sodium 1,000 mg/ 50 mls @ 100 mls/ hr 10/12/19 14:00 10/12/19 15:15 Sodium Chloride IV Infused Q24H JOCE Infusion Protocol Insulin Aspart 0 unit 10/12/19 18:00 10/13/19 07:35 Novolog SUBCUT 2 unit WM&BEDTIME JOCE Administration Protocol Levothyroxine Sodi um 150 mcg 10/13/19 09:00 10/13/19 08:50 Synthroid PO 150 mcg DAILY JOCE Administration Levothyroxine Sodi um 25 mcg 10/13/19 09:00 10/13/19 08:50 Synthroid PO 25 mcg DAILY JOCE Administration Metoprolol Tartrat e 100 mg 10/13/19 09:00 10/13/19 08:50 Lopressor PO 100 mg BID JOCE Administration Pantoprazole Sodiu m 40 mg 10/12/19 18:00 10/13/19 08:50 Protonix PO 40 mg BID JOCE Administration Potassium Chloride 40 meq 10/13/19 09:00 10/13/19 08:50 Klor-Con 10 PO 40 meq DAILY JOCE Administration Vitals/I&O/Wt Last Vital Signs Temp 99.0 F 10/13/19 09:01 Pulse 75 10/13/19 09:56 Resp 18 10/13/19 07:00 BP 156/83 10/13/19 08:15 Pulse Ox 99 10/13/19 09:56 10/12/19 10/13/19 10/13/19 22:59 06:59 14:59 Intake Total 1050 / 4050 1025 / 5075 240 / 240 Output Total 550 / 550 Balance 500 / 3500 1025 / 4525 240 / 240 Weight last 48 hrs Weight 112.292 kg Weight 104.326 kg Physical Exam Const: COMMON NORMALS: no apparent distress and oriented x3 GENERAL APPEAR ANCE: cooperative, comfortable, ill appearing and diaphoretic NUTRITIONAL APPEARANCE: obese morbidly obese ORIENTATION/CONSCIOUSNESS: Yes awake OTHER: -Resting in bed, appears fatigued HENMT: COMMON NORMALS: normocephalic, head/scalp atraumatic and hearing grossly normal bilaterally HEAD & SCALP: normocephalic and atraumatic MOUTH: moist mucous membranes abnormal Details: parched Eye: COMMON NORMALS: PERRL, EOMs intact bilaterally and conjunctivae normal CONJUNCTIVA: Yes conjunctivae normal PUPIL: Yes PERRL Neck/C-Spine: COMMON NORMALS: full ROM GENERAL: Yes normal visual inspection and Yes trachea midline Resp: COMMON NORMALS: normal respiratory effort, no retractions, no use of accessory muscles and clear to auscultation bilaterally EFFORT & INSPECTION: Yes able to speak in complete sentences, Yes symmetric chest movement and No tachypneic AUSCULTATION: clear to auscultation bilaterally Cardio: COMMON NORMALS: regular rate, regular rhythm, S1 normal heart sound, S2 normal heart sound and no murmurs RATE: regular rate RHYTHM: regular rhythm HEART SOUNDS: S1 normal and S2 normal GI: COMMON NORMALS: normal to inspection, nondistended, normoactive bowel soun ds and soft to palpation INSPECTION: Yes central obesity PALPATION: Yes soft, Yes tender (Periumbilical, right and left lower quadrants), No guarding, No rigid and No rebound tenderness present Extremity: COMMON NORMALS: normal to inspection, full ROM and no clubbing, cyanosis or edema; negative for no pedal edema Neuro: COMMON NORMALS: oriented x3, moves all extremities, no focal motor deficits and no sensory deficits noted Psych: COMMON NORMALS: mental status grossly normal, thought process normal, cooperative, affect normal and speech normal SPEECH: Yes normal speech THOUGHT PROCESS: normal thought process Skin: COMMON NORMALS: no rashes or lesions noted, no jaundice, no petechiae and no mottling GENERAL SKIN EXAM: no rashes or lesions noted Data : 10/13/19 04:21 10/13/19 04:21 Micro: Microbiology 10/12/19 11:03 C.difficile Toxin B Gene (PCR) - Final Stool 10/12/19 11:03 Enteric Pathogens (PCR) - Final Stool A&P Assessment and plan (1) Hypotension due to hypovolemia: -Noted hypotension likely due to hypovolemia from dehydration secondary to ongoing diarrhea and vomiting -Received 3 L total normal saline boluses in ED, on maintenance IVF -Continue close monitoring of blood pressure; hypertensive currently. 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 difficile -Unclear etiology currently but no noted leukocytosis, afebrile so would avoid antibiotics unless suspicious for infectious etiology; from report obtained from patient suspicious for gastroenteritis secondary to exposure to outside food as symptoms started shortly after eating [employer] fish sandwich on -d/c IVF; encourage oral hydration -CT abdomen and pelvis ordered Status: Acute Qualifiers: Diarrhea type: unspecified type Qualified Code(s): R19.7 - Diarrhea, unspecified Code(s): R19.7 - Diarrhea, unspecified (4) Insulin dependent diabetes mellitus: -last A1c-6.9 (2017); repeat-8.0 -Accu-Cheks; hold scheduled insulin for now pending improved oral intake/tolerance -ISS, hypoglycemia precautions -Complicated by peripheral neuropathy Status: Acute Code(s): E11.9 - Type 2 diabetes mellitus without complications; Z79.4 - intermediate project manager (current) use of insulin Additional A&P Information -Morbid obesity: BMI-41 kg/m2 -HTN; resume oral antihypertensives -Hyperlipidemia; hold statin -hx of liver cirrhosis presumably due to fatty liver disease; noted transaminitis, repeat LFTs in a.m. 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 Time Spent in Patient Care: Greater than 35 minutes (>than 50% of time spent in counselling and/or direct pt care on unit) . Coding Level of Care Code Acute Hedge Fund Principal for g Fwd Exam Comprehensive Diagnoses Hypotension due to hypovolemia I95.89; E86.1 Acute kidney injury N17.9 Diarrhea R19.7 Diarrhea type: unspecified type Insulin dependent diabetes mellitus E11.9; Z79.4
[2019-10-13 11:14] LABS: Glucose Point of Care 202 mg/dL (70-110)
[2019-10-13] MEDS: duloxetine 60 mg Capsule PO (11:50)
[2019-10-13 12:22] LABS: Digoxin 0.6 ng/mL (0.6-1.2)
[2019-10-13] MEDS: cefTRIAXone 1,000 MG in sodium chloride 0.9% (plus) 50 ML 100 MG IV (13:09)
[2019-10-13] MEDS: morphine 4 mg/mL SDV 1 mL 2 MG IVP (13:10)
[2019-10-13] MEDS: ondansetron 2 mg/ML SDV 2 mL 4 MG IVP (13:14)
--- NOTE | 2019-10-13 13:24 | PC.CHAP ---
Pastoral Care Encounter/Spiritual Assessment Type of Contact [] Declined chemical milling processor visit [] Patient/Family/Request visit [] Outpatient visit [] Follow-up visit [] Physician referral [] Code/Alert [] Routine visit [] Staff referral [] Actively dying [] Patient sleeping [] Family support [] [x] Out of room [] Palliative care [] [] Receiving care in room [] Pre-surgical visit [] Trauma [] Long length of stay [] ICU visit [] Other: Relational/Emotional Strength [] Patient feels connected with others/family/visitors/staff [] Distress [] Loneliness/isolation [] Abandonment Spirituality of Patient [] Person of Joelle [] Attends Spiritism of their Joelle [] Believes in Prayer [] Reads Bible or Latter-Day materials [] There are Spiritual issues to be addressed Food Service Aide Interventions [] Prayer [] Active listening [] Non-anxious presence [] Spiritual/emotional support [] Crisis/trauma care [] Spiritual counseling [] Bereavement support [] Provided bereavement packet [] Provided Bible/devotional materials [] Provided toy/stuffed animal, coloring book to patient or family member [] Provided Communion [] Anointing/[place] [] Salvation [] Completed spiritual assessment [] Other: Impact on Illness or Injury [] Angry [] Fearful [] Anxious [] Often cries [] Exhaustion [] Unable to work [] Unable to attend confucianism [] Unable to walk/stand [] Unable to read [] Unable to drive [] Unable to eat/drink [] Unable to sleep [] Unable to be with family [] Patient intubated [] Other: Summary Patient was being taken out of the room at the time of chemical milling processor visit. Visit attempted by Food Service Aide Dwight Aguillon Time spent with patient 3 minutes
--- NOTE | 2019-10-13 13:27 | PC.CHAP ---
Pastoral Care Encounter/Spiritual Assessment Type of Contact [] Declined sap architect visit [] Patient/Family/Request visit [] Outpatient visit [] Follow-up visit [] Physician referral [] Code/Alert [x] Routine visit [] Staff referral [] Actively dying [] Patient sleeping [] Family support [] [] Out of room [] Palliative care [] [] Receiving care in room [] Pre-surgical visit [] Trauma [] Long length of stay [x] ICU visit [] Other: Relational/Emotional Strength [x] Patient feels connected with others/family/visitors/staff [] Distress [] Loneliness/isolation [] Abandonment Spirituality of Patient [] Person of Joelle [] Attends Jew of their Joelle [x] Believes in Prayer [] Reads Bible or Temple materials [] There are Spiritual issues to be addressed Axminster Weaver Interventions [x] Prayer [x] Active listening [x] Non-anxious presence [x] Spiritual/emotional support [] Crisis/trauma care [] Spiritual counseling [] Bereavement support [] Provided bereavement packet [] Provided Bible/devotional materials [] Provided toy/stuffed animal, coloring book to patient or family member [] Provided Communion [] Anointing/[place] [] Salvation [x] Completed spiritual assessment [] Other: Impact on Illness or Injury [] Angry [] Fearful [] Anxious [] Often cries [] Exhaustion [] Unable to work [] Unable to attend nondenominational [] Unable to walk/stand [] Unable to read [] Unable to drive [x] Unable to eat/drink [] Unable to sleep [] Unable to be with family [] Patient intubated [] Other: Summary Patient expressed that she was having stomach discomfort and has been for the last five days. She said she couldn't eat due to it upsetting her stomach. She also had started what she referred to as belching while sap architect was in the room and stated that she had not been able to do that until now. Axminster Weaver prayed with patient and her . Patient was visited by Axminster Weaver Dwight Aguillon. Time spent with patient 10 minutes
[2019-10-13 14:20] LABS: Glucose Point of Care 174 mg/dL (70-110)
--- NOTE | 2019-10-13 14:58 | CTR_ITS ---
PROCEDURE INFORMATION: Exam: CT Abdomen And Pelvis Without Contrast Exam date and time: 10/13/2019 5:45 PM Age: 69 years old Clinical indication: Abdominal pain; Generalized; Prior surgery; Surgery date: 6+ months; Surgery type: Hyst; Patient HX: C/O abd pain and nausea; Additional info: Abdominal pain, nausea TECHNIQUE: Imaging protocol: Computed tomography of the abdomen and pelvis without contrast. Total DLP: 2011.03 mGy-cm Radiation optimization: All CT scans at this facility use at least one of these dose optimization techniques: automated exposure control; mA and/or kV adjustment per patient size (includes targeted exams where dose is matched to clinical indication); or iterative reconstruction. Other contrast: Route: Oral, Material: dilute Omni 300, Volume: 20ml in 450ml water; COMPARISON: CT abdomen pelvis w con* [id number] 09/25/2019 2:39 AM FINDINGS: Limitations: The absence of intravenous contrast lessens the sensitivity of this study for solid organ abnormalities. Pleural space: There is a small right pleural effusion. Liver: Liver has nodular contours suggesting possibility of cirrhosis. Correlation with clinical history is suggested. Gallbladder and bile ducts: There has been a cholecystectomy. Pancreas: The head of the pancreas is somewhat ill-defined and there is stranding in the fat adjacent to the pancreatic head. These findings are worrisome for acute pancreatitis. Correlation with clinical and laboratory findings is suggested. Spleen: The spleen demonstrates punctate calcifications, consistent with remote granulomatous organism exposure. Adrenals: The adrenal glands are normal. Kidneys and ureters: There is a 12 mm benign-appearing cyst arising from the posterior aspect of the left kidney. No follow-up is required. There is a right renal collecting system calcification. There is a left renal collecting system calcification. There is no evidence of hydronephrosis. There is no stone along the course of either ureter. Stomach and bowel: Unremarkable. No obstruction. No mucosal thickening. Appendix: No evidence of appendicitis. Intraperitoneal space: Unremarkable. No free air. No significant fluid collection. Vasculature: Unremarkable. No abdominal aortic aneurysm. Lymph nodes: Unremarkable. No enlarged lymph nodes. Bladder: Unremarkable as visualized. Reproductive: There has been a hysterectomy. Bones/joints: Unremarkable. No acute fracture. Soft tissues: There is a small epigastric hernia containing fat and possibly a tiny umbilical hernia containing fat. There is a 1.7 cm sized focal area of density in the subcutaneous fat of the anterior abdominal wall to the left of the midline on image number 53. This likely represents site of subcutaneous injection. Correlation with clinical findings is suggested. CT/CT abdomen pelvis wo con [id number] IMPRESSION: 1. Findings are worrisome for acute pancreatitis 2. Small right pleural effusion. 3. Bilateral kidney stones 4. Small ventral hernia containing fat. COMMENT: Consistent with the [place] [employer]'s Incidental Findings Committee white paper (J Am Cesar Radiol 2018): Any incidental cystic renal lesion classified in this report as too small to characterize or simple appearing is likely a benign cyst. No follow-up imaging is recommended for these lesions per consensus recommendations based on imaging criteria. Radiation Dose CTDIVOL = (mGy): DLP = 2011.03 (mGy-cm)
[2019-10-13 16:07] LABS: Glucose Point of Care 231 mg/dL (70-110)
[2019-10-13 21:27] LABS: Glucose Point of Care 205 mg/dL (70-110)
[2019-10-14] VITALS (24 sets, daily range): BP systolic 103–174; BP diastolic 47–117; PULSE 70–105; RESP 14–29; TEMP 36.4–37.3; O2SAT 94–100
[2019-10-14 04:59] LABS: Basophils % 0.5 %; Eosinophils # 0.1 10^3/uL (0.0-0.8); Eosinophils % 1.2 %; Hematocrit 32.5 % (37.0-47.0); Hemoglobin 10.8 g/dL (11.5-15.3); Lymphocytes # 0.9 10^3/uL (0.8-4.8); Lymphocytes % 21.9 %; Mean Corpuscular HGB Conc 33.2 g/dL (30.0-36.0); Mean Corpuscular Hemoglobin 30.1 pg (28.0-34.0); Mean Corpuscular Volume 90.5 fL (81-99); Mean Platelet Volume 9.6 fL (7.4-10.4); Monocytes # 0.4 10^3/uL (0.2-0.9); Monocytes % 9.8 %; Neutrophils # 2.8 10^3/uL (1.8-7.7); Neutrophils % 65.4 %; Nucleated Red Blood Cells % 0 %; Platelet Count 184 10^3/cmm (130-400); Red Blood Count 3.59 10^6/uL (4.1-5.3); Red Cell Distribution Width 12.1 % (12.1-15.1); White Blood Count 4.3 10^3/uL (4.0-10.0)
[2019-10-14 05:17] LABS: Anion Gap 15.1 (5-19); Blood Urea Nitrogen 12 mg/dL (8-23); Calcium 8.1 mg/dL (8.5-10.5); Carbon Dioxide 29 mmol/L (22-29); Chloride 102 mmol/L (98-107); Glucose 223 mg/dL (65-115); Osmolality Calculated 299 mOsm/kg (285-295); Potassium 3.1 mmol/L (3.5-5.1); Sodium 143 mmol/L (136-145)
--- NOTE | 2019-10-14 05:28 | PC.NURSE ---
DR FIORE PT CONVERTED TO AFIB, DR BOND WAS MADE AWARE. PT IS RATE CONTROLLED, NO ORDERS AT THIS TIME.
[2019-10-14] MEDS: heparin 5,000 unit/mL INJ 1 mL 5000 UNIT SUBCUT ×3 (06:27→21:03)
--- NOTE | 2019-10-14 06:31 | PC.NURSE ---
SHIFT SUMMARY PT HAS BEEN ALERT AND ORIENTATED. PT HAS HAD ADEQUATE URINE OUTPUT. PT HAS HAD LESS STOOL TONIGHT. PT ABLE TO GET UP TO BSC WITH STAND BY ASSIST. PT AT TIMES GETS VERY EMOTIONAL, AND CRIES, TALKING ABOUT HER AGE AND HOW HER FRIENDS ARE GETTING OLDER. PT WAS REASSURED THAT WE ARE TAKING CARE OF HER AND HER VITALS LOOK STABLE AT THIS MOMENT. PT CONVERTED OUT OF AFIB AT 0655. PT ASYMPTOMATIC.
[2019-10-14 07:25] LABS: Glucose Point of Care 190 mg/dL (70-110)
[2019-10-14] MEDS: ARIPiprazole 10 mg Tablet 5 MG PO (08:34)
[2019-10-14] MEDS: amlodipine 10 mg Tablet PO (08:34)
[2019-10-14] MEDS: metoprolol tartrate 50 mg Tablet 100 MG PO ×2 (08:35→17:32)
[2019-10-14] MEDS: duloxetine 60 mg Capsule PO (08:35)
[2019-10-14] MEDS: pantoprazole DR 40 mg Tablet PO ×2 (08:35→17:31)
[2019-10-14] MEDS: hyDRALAzine 25 mg Tablet PO ×3 (08:35→21:03)
[2019-10-14] MEDS: digoxin 125 mcg Tablet PO (08:35)
[2019-10-14] MEDS: BuSPIRONE 5 mg Tablet PO ×2 (08:35→17:31)
[2019-10-14] MEDS: levothyroxine 25 mcg Tablet PO (08:35)
[2019-10-14] MEDS: levothyroxine 150 mcg Tablet PO (09:42)
--- NOTE | 2019-10-14 10:37 | PC.CHAP ---
Pastoral Care Encounter/Spiritual Assessment Type of Contact [] Declined pastoral counselor visit [] Patient/Family/Request visit [] Outpatient visit [] Follow-up visit [] Physician referral [] Code/Alert [x] Routine visit [] Staff referral [] Actively dying [] Patient sleeping [] Family support [] [] Out of room [] Palliative care [] [] Receiving care in room [] Pre-surgical visit [] Trauma [] Long length of stay [x] ICU visit [] Other: Relational/Emotional Strength [x] Patient feels connected with others/family/visitors/staff [] Distress [] Loneliness/isolation [] Abandonment Spirituality of Patient [x] Person of Joelle [] Attends Alevism of their Joelle [x] Believes in Prayer [x] Reads Bible or Episcopalian materials [] There are Spiritual issues to be addressed Quilt Sewer Interventions [x] Prayer [x] Active listening [x] Non-anxious presence [x] Spiritual/emotional support [] Crisis/trauma care [x] Spiritual counseling [] Bereavement support [] Provided bereavement packet [] Provided Bible/devotional materials [] Provided toy/stuffed animal, coloring book to patient or family member [] Provided Communion [] Anointing/[place] [] Salvation [] Completed spiritual assessment [] Other: Impact on Illness or Injury [] Angry [] Fearful [] Anxious [] Often cries [] Exhaustion [] Unable to work [] Unable to attend taoist [] Unable to walk/stand [] Unable to read [] Unable to drive [] Unable to eat/drink [] Unable to sleep [] Unable to be with family [] Patient intubated [x] Other: n/a Summary Patient had questions about the Old Testament and the cross Kevin bore for man. [place] answered these questions according to Scripture. Time spent with patient 15 minutes
[2019-10-14 11:22] LABS: Glucose Point of Care 211 mg/dL (70-110)
--- NOTE | 2019-10-14 12:11 | P.PN_ITS ---
Subjective Subjective: Interval history: Had 1 large loose bowel movement overnight. Reviewed CT abdomen and pelvis results showing endings consistent with possible acute pancreatitis the lipase is within normal limits. Patient seen and examined, at bedside, resting in bed, much less ill-appearing today, seems to be in better spirits. Still struggling with her oral intake. States that she was feeling better this morning now has lower abdominal cramping. Has some residual nausea but no vomiting. Discussed CT findings with patient and . She states she is not comfortable moving out of the ICU at this time. Seems to be tolerating liquids much better. Medications: Reviewed: Yes Medication Review Details: Current Medications Generic Name Dose Route Start Last Admin Trade Name Freq PRN Reason Stop Dose Admin Hydrocodone Bitart /Acetaminophen 1 tab 10/12/19 13:19 10/13/19 21:34 [place] 5-325 Mg PO 1 tab Q6H PRN Administration MODERATE PAIN Amlodipine Besylat e 10 mg 10/13/19 09:00 10/14/19 08:34 Norvasc PO 10 mg DAILY JOCE Administration Aripiprazole 5 mg 10/13/19 09:00 10/14/19 08:34 Abilify PO 5 mg DAILY JOCE Administration Buspirone HCl 5 mg 10/12/19 18:00 10/14/19 08:35 Buspar PO 5 mg BID JOCE Administration Digoxin 125 mcg 10/13/19 09:00 10/14/19 08:35 Lanoxin PO 125 mcg DAILY JOCE Administration Furosemide 40 mg 10/13/19 09:00 10/13/19 08:49 Lasix PO 40 mg EVERY OTHER DAY S [facility] Administration Heparin Sodium (Be ef Lung) 5,000 unit 10/12/19 14:00 10/14/19 06:27 Heparin SUBCUT 5,000 unit Q8H JOCE Administration Hydralazine HCl 25 mg 10/13/19 09:00 10/14/19 08:35 Apresoline PO 25 mg TID JOCE Administration Ceftriaxone Sodium 1,000 mg/ 50 mls @ 100 mls/ hr 10/12/19 14:00 10/13/19 14:00 Sodium Chloride IV Infused Q24H JOCE Infusion Protocol Insulin Aspart 0 unit 10/12/19 18:00 10/14/19 11:26 Novolog SUBCUT 4 unit WM&BEDTIME JOCE Administration Protocol Levothyroxine Sodi um 150 mcg 10/13/19 09:00 10/14/19 09:42 Synthroid PO 150 mcg DAILY JOCE Administration Levothyroxine Sodi um 25 mcg 10/13/19 09:00 10/14/19 08:35 Synthroid PO 25 mcg DAILY JOCE Administration Metoprolol Tartrat e 100 mg 10/13/19 09:00 10/14/19 08:35 Lopressor PO 100 mg BID JOCE Administration Morphine Sulfate 2 mg 10/12/19 13:12 10/13/19 13:10 Morphine IVP 2 mg Q4H PRN Administration SEVERE PAIN Ondansetron HCl 4 mg 10/12/19 13:12 10/13/19 13:14 Zofran IVP 4 mg Q6H PRN Administration vomiting, or N/V if npo Pantoprazole Sodiu m 40 mg 10/12/19 18:00 10/14/19 08:35 Protonix PO 40 mg BID JOCE Administration Potassium Chloride 40 meq 10/13/19 09:00 10/14/19 08:35 Klor-Con 10 PO 40 meq DAILY JOCE Administration Vitals/I&O/Wt Last Vital Signs Temp 97.6 F 10/14/19 06:02 Pulse 72 10/14/19 10:00 Resp 17 10/14/19 10:00 BP 169/81 10/14/19 10:00 Pulse Ox 98 10/14/19 10:00 10/13/19 10/14/19 10/14/19 22:59 06:59 14:59 Intake Total 120 / 120 Output Total 500 / 500 450 / 950 Balance -500 / -130 -450 / -580 120 / 120 Weight last 48 hrs Weight 109.769 kg Weight 112.292 kg Physical Exam Const: COMMON NORMALS: no apparent distress and oriented x3 GENERAL APPEARANCE: cooperative, comfortable, appears older than stated age and diaphoretic; not ill appearing NUTRITIONAL APPEARANCE: obese morbidly obese ORIENTATION/CONSCIOUSNESS: Yes awake OTHER: -Resting in bed, appears fatigued HENMT: COMMON NORMALS: normocephalic, head/scalp atraumatic and hearing grossly normal bilaterally HEAD & SCALP: normocephalic and atraumatic MOUTH: moist mucous membranes abnormal Details: parched Eye: COMMON NORMALS: PERRL, EOMs intact bilaterally and conjunctivae normal CONJUNCTIVA: Yes conjunctivae normal PUPIL: Yes PERRL Neck/C-Spine: COMMON NORMALS: full ROM GENERAL: Yes normal visual inspection and Yes trachea midline Resp: COMMON NORMALS: normal respiratory effort, no retractions, no use of accessory muscles and clear to auscultation bilaterally EFFORT & INSPECTION: Yes able to speak in complete sentences, Yes symmetric chest movement and No tachypneic AUSCULTATION: clear to auscultation bilaterally Cardio: COMMON NORMALS: regular rate, regular rhythm, S1 normal heart sound, S2 normal heart sound and no murmurs RATE: regular rate RHYTHM: regular rhythm HEART SOUNDS: S1 normal and S2 normal GI: COMMON NORMALS: normal to inspection, nondistended, normoactive bowel sounds and soft to palpation INSPECTION: Yes central obesity PALPATION: Yes soft, Yes tender (Periumbilical, right and left lower quadrants), No guarding, No rigid and No rebound tenderness present Extremity: COMMON NORMALS: normal to inspection, full ROM and no clubbing, cyanosis or edema; negative for no pedal edema Neuro: COMMON NORMALS: oriented x3, moves all extremities, no focal motor deficits and no sensory deficits noted Psych: COMMON NORMALS: mental status grossly normal, thought process normal, cooperative, affect normal and speech normal SPEECH: Yes normal speech THOUGHT PROCESS: normal thought process Skin: COMMON NORMALS: no rashes or lesions noted, no jaundice, no petechiae and no mottling GENERAL SKIN EXAM: no rashes or lesions noted Data : 10/14/19 04:20 10/14/19 04:20 A&P Assessment and plan (1) Hypotension due to hypovolemia: -Noted hypotension likely due to hypovolemia from dehydration secondary to ongoing diarrhea and vomiting -Received 3 L total normal saline boluses in ED, off IVF -Continue close monitoring of blood pressure; hypertensive currently. 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 difficile -Unclear etiology currently but no noted leukocytosis, afebrile so would avoid antibiotics unless suspicious for infectious etiology; from report obtained from patient suspicious for gastroenteritis secondary to exposure to outside food as symptoms started shortly after eating [employer] fish sandwich on -off IVF; encourage oral hydration -CT abdomen and pelvis showing findings consistent with acute pancreatitis, liver cirrhosis, small right pleural effusion, bilateral kidney stones with no evidence of hydronephrosis or obstruction. Lipase within normal limits (19) Status: Acute Qualifiers: Diarrhea type: unspecified type Qualified Code(s): R19.7 - Diarrhea, unspecified Code(s): R19.7 - Diarrhea, unspecified (4) Insulin dependent diabetes mellitus: -last A1c-6.9 (2016); repeat-8.0 -Accu-Cheks; hold scheduled insulin for now pending improved oral intake/tolerance -ISS, hypoglycemia precautions -Complicated by peripheral neuropathy Status: Acute Code(s): E11.9 - Type 2 diabetes mellitus without complications; Z79.4 - longterm (current) use of insulin Additional A&P Information -Morbid obesity: BMI-40 kg/m2 -HTN; continue oral antihypertensives -Hyperlipidemia; hold statin -hx of liver cirrhosis presumably due to fatty liver disease; noted transami nitis, repeat LFTs in a.m. 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 Time Spent in Patient Care: Greater than 35 minutes (>than 50% of time spent in counselling and/or direct pt care on unit) . Coding Level of Care Code Acute Emergency Department Physician for Chg Fwd Exam Comprehensive Diagnoses Hypotension due to hypovolemia I95.89; E86.1 Acute kidney injury N17.9 Diarrhea R19.7 Diarrhea type: unspecified type Insulin dependent diabetes mellitus E11.9; Z79.4
[2019-10-14] MEDS: cefTRIAXone 1,000 MG in sodium chloride 0.9% (plus) 50 ML 100 MG IV (13:39)
--- NOTE | 2019-10-14 15:11 | PC.CHAP ---
Pastoral Care Encounter/Spiritual Assessment Type of Contact [] Declined productivity engineer visit [] Patient/Family/Request visit [] Outpatient visit [] Follow-up visit [] Physician referral [] Code/Alert [] Routine visit [] Staff referral [] Actively dying [] Patient sleeping [] Family support [] [] Out of room [] Palliative care [] [] Receiving care in room [] Pre-surgical visit [] Trauma [] Long length of stay [x] ICU visit [] Other: Relational/Emotional Strength [x] Patient feels connected with others/family/visitors/staff [] Distress [] Loneliness/isolation [] Abandonment Spirituality of Patient [xx] Person of Joelle [] Attends Druze of their Joelle [xx] Believes in Prayer [] Reads Bible or Methodist materials [] There are Spiritual issues to be addressed Product Transfer Pumper Interventions [x] Prayer [x] Active listening [xx] Non-anxious presence [xx] Spiritual/emotional support [] Crisis/trauma care [] Spiritual counseling [] Bereavement support [] Provided bereavement packet [] Provided Bible/devotional materials [] Provided toy/stuffed animal, coloring book to patient or family member [] Provided Communion [x5] Anointing/[place] [] Salvation [] Completed spiritual assessment [] Other: Impact on Illness or Injury [] Angry [] Fearful [] Anxious [] Often cries [] Exhaustion [] Unable to work [] Unable to attend jew [] Unable to walk/stand [] Unable to read [] Unable to drive [] Unable to eat/drink [] Unable to sleep [] Unable to be with family [] Patient intubated [] Other: Summary Prayer Time spent with patient 5
[2019-10-14 17:30] LABS: Glucose Point of Care 161 mg/dL (70-110)
[2019-10-14] MEDS: HYDROcodone-acetaminophen 5-325 mg Tablet 1 TAB PO (19:24)
[2019-10-14 21:06] LABS: Glucose Point of Care 210 mg/dL (70-110)
[2019-10-14 21:46] LABS: Add Urine Microscopic? YES; Bilirubin Urine Neg (NEGATIVE); Blood Urine Neg (Negative); Glucose Urine UA Trace (Normal); Ketones Urine Negative (Negative); Leukocyte Esterase Urine Negative (Negative); Nitrate Urine Negative (Negative); Protein Urine 1+ (Negative); Urine Appearance Clear (CLEAR); Urine Color Yellow (Yellow); Urobilinogen Urine Norm (Negative); pH Urine 6 (5-7)
[2019-10-14 22:06] LABS: Bacteria Urine TRACE; RBC Urine 0-4 /hpf (0-2); Squamous Epithelial Cell Urine 15-25 (0-5)
[2019-10-14 22:12] LABS: Add Urine Culture? No
[2019-10-15] VITALS (18 sets, daily range): BP systolic 113–154; BP diastolic 48–85; PULSE 68–83; RESP 6–25; TEMP 36.7–37.1; O2SAT 91–100
[2019-10-15] MEDS: HYDROcodone-acetaminophen 5-325 mg Tablet 1 TAB PO ×2 (04:38→22:19)
[2019-10-15] MEDS: heparin 5,000 unit/mL INJ 1 mL 5000 UNIT SUBCUT ×3 (05:25→22:16)
[2019-10-15] MEDS: levothyroxine 150 mcg Tablet PO (08:21)
[2019-10-15] MEDS: ARIPiprazole 10 mg Tablet 5 MG PO (08:22)
[2019-10-15] MEDS: amlodipine 10 mg Tablet PO (08:23)
[2019-10-15] MEDS: hyDRALAzine 25 mg Tablet PO ×3 (08:24→22:19)
[2019-10-15] MEDS: FUROsemide 40 mg Tablet PO (08:24)
[2019-10-15] MEDS: duloxetine 60 mg Capsule PO (08:24)
[2019-10-15] MEDS: BuSPIRONE 5 mg Tablet PO ×2 (08:24→17:14)
[2019-10-15] MEDS: digoxin 125 mcg Tablet PO (08:24)
[2019-10-15] MEDS: pantoprazole DR 40 mg Tablet PO ×2 (08:25→17:14)
[2019-10-15] MEDS: metoprolol tartrate 50 mg Tablet 100 MG PO ×2 (08:25→17:14)
[2019-10-15] MEDS: levothyroxine 25 mcg Tablet PO (08:32)
--- NOTE | 2019-10-15 10:28 | PM.PN ---
Subjective Subjective: Interval history: Hemodynamically stable, afebrile, had 1550 mL urine output overnight. Last doses of analgesics and antiemetics were on 10/13. Patient seen and examined, at bedside, resting in bed, no acute overnight events reported, no apparent distress. Oral intake today has been very good minimal abdominal discomfort. Transfer from ICU which she is agreeable to. Medications: Reviewed: Yes Medication Review Details: Current Medications Generic Name Dose Route Start Last Admin Trade Name Freq PRN Reason Stop Dose Admin Hydrocodone Bitart /Acetaminophen 1 tab 10/12/19 13:19 10/15/19 04:38 [place] 5-325 Mg PO 1 tab Q6H PRN Administration MODERATE PAIN Amlodipine Besylat e 10 mg 10/13/19 09:00 10/15/19 08:23 Norvasc PO 10 mg DAILY JOCE Administration Aripiprazole 5 mg 10/13/19 09:00 10/15/19 08:22 Abilify PO 5 mg DAILY JOCE Administration Buspirone HCl 5 mg 10/12/19 18:00 10/15/19 08:24 Buspar PO 5 mg BID JOCE Administration Digoxin 125 mcg 10/13/19 09:00 10/15/19 08:24 Lanoxin PO 125 mcg DAILY JOCE Administration Furosemide 40 mg 10/13/19 09:00 10/15/19 08:24 Lasix PO 40 mg EVERY OTHER DAY S CH Administration Heparin Sodium (Be ef Lung) 5,000 unit 10/12/19 14:00 10/15/19 05:25 Heparin SUBCUT 5,000 unit Q8H JOCE Administration Hydralazine HCl 25 mg 10/13/19 09:00 10/15/19 08:24 Apresoline PO 25 mg TID JOCE Administration Ceftriaxone Sodium 1,000 mg/ 50 mls @ 100 mls/ hr 10/12/19 14:00 10/14/19 13:39 Sodium Chloride IV 100 mls/hr Q24H JOCE Administration Protocol Insulin Aspart 0 unit 10/12/19 18:00 10/15/19 08:19 Novolog SUBCUT 4 unit WM&BEDTIME JOCE Administration Protocol Levothyroxine Sodi um 150 mcg 10/13/19 09:00 10/15/19 08:21 Synthroid PO 150 mcg DAILY JOCE Administration Levothyroxine Sodi um 25 mcg 10/13/19 09:00 10/15/19 08:32 Synthroid PO 25 mcg DAILY JOCE Administration Metoprolol Tartrat e 100 mg 10/13/19 09:00 10/15/19 08:25 Lopressor PO 100 mg BID JOCE Administration Morphine Sulfate 2 mg 10/12/19 13:12 10/13/19 13:10 Morphine IVP 2 mg Q4H PRN Administration SEVERE PAIN Ondansetron HCl 4 mg 10/12/19 13:12 10/13/19 13:14 Zofran IVP 4 mg Q6H PRN Administration vomiting, or N/V if npo Pantoprazole Sodiu m 40 mg 10/12/19 18:00 10/15/19 08:25 Protonix PO 40 mg BID JOCE Administration Potassium Chloride 40 meq 10/13/19 09:00 10/15/19 08:25 Klor-Con 10 PO 40 meq DAILY JOCE Administration Vitals/I&O/Wt Last Vital Signs Temp 98.1 F 10/15/19 04:00 Pulse 74 10/15/19 09:28 Resp 18 10/15/19 06:00 BP 151/53 10/15/19 06:00 Pulse Ox 96 10/15/19 09:28 10/14/19 10/15/19 10/15/19 22:59 06:59 14:59 Intake Total 740 / 1100 200 / 1300 Output Total 800 / 800 750 / 1550 Balance -60 / 300 -550 / -250 Weight last 48 hrs Weight 106.685 kg Weight 109.769 kg Physical Exam Const: COMMON NORMALS: no apparent distress and oriented x3 GENERAL APPEARANCE: cooperative, comfortable, appears older than stated age and diaphoretic; not ill appearing NUTRITIONAL APPEARANCE: obese morbidly obese ORIENTATION/CONSCIOUSNESS: Yes awake OTHER: -Resting in bed HENMT: COMMON NORMALS: normocephalic, head/scalp atraumatic and hearing grossly normal bilaterally HEAD & SCALP: normocephalic and atraumatic MOUTH: moist mucous membranes abnormal Details: parched Eye: COMMON NORMALS: PERRL, EOMs intact bilaterally and conjunctivae normal CONJUNCTIVA: Yes conjunctivae normal PUPIL: Yes PERRL Neck/C-Spine: COMMON NORMALS: full ROM GENERAL: Yes normal visual inspection and Yes trachea midline Resp: COMMON NORMALS: normal respiratory effort, no retractions, no use of accessory muscles and clear to auscultation bilaterally EFFORT & INSPECTION: Yes able to speak in complete sentences, Yes symmetric chest movement and No tachypneic AUSCULTATION: clear to auscultation bilaterally Cardio: COMMON NORMALS: regular rate, regular rhythm, S1 normal heart sound, S2 normal heart sound and no murmurs RATE: regular rate RHYTHM: regular rhythm HEART SOUNDS: S1 normal and S2 normal GI: COMMON NORMALS: normal to inspection, nondistended, normoactive bowel sounds and soft to palpation INSPECTION: Yes central obesity PALPATION: Yes soft, Yes tender (Periumbilical, right and left lower quadrants), No guarding, No rigid and No rebound tenderness present Extremity: COMMON NORMALS: normal to inspection, full ROM and no clubbing, cyanosis or edema; negative for no pedal edema Neuro: COMMON NORMALS: oriented x3, moves all extremities, no focal motor deficits and no sensory deficits noted Psych: COMMON NORMALS: mental status grossly normal, thought process normal, cooperative, affect normal and speech normal SPEECH: Yes normal speech THOUGHT PROCESS: normal thought process Skin: COMMON NORMALS: no rashes or lesions noted, no jaundice, no petechiae and no mottling GENERAL SKIN EXAM: no rashes or lesions noted Data : 10/14/19 04:20 10/14/19 04:20 A&P Assessment and plan (1) Hypotension due to hypovolemia: -Noted hypotension likely due to hypovolemia from dehydration secondary to ongoing diarrhea and vomiting -Received 3 L total normal saline boluses in ED, off IVF -Continue close monitoring of blood pressure; hypertensive currently. 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 difficile -Unclear etiology currently but no noted leukocytosis, afebrile so would avoid antibiotics unless suspicious for infectious etiology; from report obtained from patient suspicious for gastroenteritis secondary to exposure to outside food as symptoms started shortly after eating [employer] fish sandwich on -off IVF; encourage oral hydration -CT abdomen and pelvis showing findings consistent with acute pancreatitis, liver cirrhosis, small right pleural effusion, bilateral kidney stones with no evidence of hydronephrosis or obstruction. Lipase within normal limits (19) Status: Acute Qualifiers: Diarrhea type: unspecified type Qualified Code(s): R19.7 - Diarrhea, unspecified Code(s): R19.7 - Diarrhea, unspecified (4) Insulin dependent diabetes mellitus: -last A1c-6.9 (2017); repeat-8.0 -Accu-Cheks; hold scheduled insulin for now pending improved oral intake/tolerance -ISS, hypoglycemia precautions -Complicated by peripheral neuropathy Status: Acute Code(s): E11.9 - Type 2 diabetes mellitus without complications; Z79.4 - moth exterminator (current) use of insulin Additional A&P Information -Morbid obesity: BMI-40 kg/m2 -HTN; continue oral antihypertensives -Hyperlipidemia; hold statin -hx of liver cirrhosis presumably due to fatty liver disease; noted transaminitis, repeat LFTs in a.m. 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 Time Spent in Patient Care: Greater than 35 minutes (>than 50% of time spent in counselling and/or direct pt care on unit). Coding Level of Care Code Acute Care Aide for g Fwd Exam Comprehensive Diagnoses Hypotension due to hypovolemia I95.89; E86.1 Acute kidney injury N17.9 Diarrhea R19.7 Diarrhea type: unspecified type Insulin dependent diabetes mellitus E11.9; Z79.4
[2019-10-15 11:43] LABS: Glucose Point of Care 185 mg/dL (70-110)
[2019-10-15 11:43] LABS: Glucose Point of Care 235 mg/dL (70-110)
--- NOTE | 2019-10-15 12:01 | PC.CHAP ---
Pastoral Care Encounter/Spiritual Assessment Type of Contact [] Declined forging machine hand visit [] Patient/Family/Request visit [] Outpatient visit [] Follow-up visit [] Physician referral [] Code/Alert [x] Routine visit [] Staff referral [] Actively dying [] Patient sleeping [] Family support [] [] Out of room [] Palliative care [] [] Receiving care in room [] Pre-surgical visit [] Trauma [] Long length of stay [x] ICU visit [] Other: Relational/Emotional Strength [] Patient feels connected with others/family/visitors/staff [] Distress [] Loneliness/isolation [] Abandonment Spirituality of Patient [x] Person of Joelle [] Attends Restorationism of their Joelle [] Believes in Prayer [] Reads Bible or Baptism materials [] There are Spiritual issues to be addressed Fixed Interest Dealer Interventions [x] Prayer [] Active listening [] Non-anxious presence [] Spiritual/emotional support [] Crisis/trauma care [] Spiritual counseling [] Bereavement support [] Provided bereavement packet [] Provided Bible/devotional materials [] Provided toy/stuffed animal, coloring book to patient or family member [] Provided Communion [] Anointing/[place] [] Salvation [x] Completed spiritual assessment [] Other: Impact on Illness or Injury [] Angry [] Fearful [] Anxious [] Often cries [] Exhaustion [] Unable to work [] Unable to attend congregational [] Unable to walk/stand [] Unable to read [] Unable to drive [] Unable to eat/drink [] Unable to sleep [] Unable to be with family [] Patient intubated [] Other: Summary Patient a little depressed about age. Feels not useful. Time spent with patient 25 min
[2019-10-15] MEDS: cefTRIAXone 1,000 MG in sodium chloride 0.9% (plus) 50 ML 100 MG IV (14:44)
--- NOTE | 2019-10-15 15:13 | DCPLANNER ---
Pg 2 of IM explained to and signed by pt. No questions, she states that she is very familiar with this message. Copy provided.
[2019-10-15 16:51] LABS: Glucose Point of Care 184 mg/dL (70-110)
--- NOTE | 2019-10-15 20:25 | PC.NURSE ---
TRANSFER NOTE Pt received to room from ICU at 1954. Is alert and oriented. Says is feeling better but still has some abdominal tenderness. Reports last diarrhea was yesterday. Has c/o chronic back pain. O2 in place at 2l per [place] and says wears at home all the time. Denies SOB. auto leasing manager applied. SCD's to BLE.
[2019-10-15 21:25] LABS: Glucose Point of Care 169 mg/dL (70-110)
[2019-10-16] VITALS (8 sets, daily range): BP systolic 126–153; BP diastolic 47–79; PULSE 68–78; RESP 16–20; TEMP 36.7–37; O2SAT 95–99
[2019-10-16] MEDS: heparin 5,000 unit/mL INJ 1 mL 5000 UNIT SUBCUT ×2 (05:30→13:43)
[2019-10-16] MEDS: HYDROcodone-acetaminophen 5-325 mg Tablet 1 TAB PO (05:34)
[2019-10-16 06:36] LABS: Glucose Point of Care 186 mg/dL (70-110)
[2019-10-16] MEDS: ARIPiprazole 10 mg Tablet 5 MG PO (07:58)
[2019-10-16] MEDS: amlodipine 10 mg Tablet PO (08:00)
[2019-10-16] MEDS: levothyroxine 150 mcg Tablet PO (08:00)
[2019-10-16] MEDS: levothyroxine 25 mcg Tablet PO (08:00)
[2019-10-16] MEDS: hyDRALAzine 25 mg Tablet PO (08:01)
[2019-10-16] MEDS: docusate sodium 100 mg Capsule PO (08:01)
[2019-10-16] MEDS: metoprolol tartrate 50 mg Tablet 100 MG PO (08:01)
[2019-10-16] MEDS: duloxetine 60 mg Capsule PO (08:01)
[2019-10-16] MEDS: BuSPIRONE 5 mg Tablet PO (08:02)
[2019-10-16] MEDS: pantoprazole DR 40 mg Tablet PO (08:02)
[2019-10-16] MEDS: digoxin 125 mcg Tablet PO (08:03)
--- NOTE | 2019-10-16 10:16 | PM.DCS ---
Discharge Providers Date of Admission: 10/12/19 11:31 Date of Discharge: October 16, 2019 Attending Provider at Admission: Natali Heart MD Attending Provider at Discharge: Natali Heart MD Primary Care Provider: Jada Gandhi MD Diagnoses at Discharge Discharge Diagnosis (1) Hypotension due to hypovolemia: Status: Resolved Problem details: -Noted hypotension likely due to hypovolemia from dehydration secondary to ongoing diarrhea and vomiting -Received 3 L total normal saline boluses in ED, off IVF -Continue close monitoring of blood pressure; hypertensive currently. 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 difficile -Unclear etiology currently but no noted leukocytosis, afebrile so would avoid antibiotics unless suspicious for infectious etiology; from report obtained from patient suspicious for gastroenteritis secondary to exposure to outside food as symptoms started shortly after eating [employer] fish sandwich on -off IVF; encourage oral hydration -CT abdomen and pelvis showing findings consistent with acute pancreatitis, liver cirrhosis, small right pleural effusion, bilateral kidney stones with no evidence of hydronephrosis or obstruction. Lipase within normal limits (19) Qualifiers: Diarrhea type: unspecified type Qualified Code(s): R19.7 - Diarrhea, unspecified (4) Insulin dependent diabetes mellitus: Status: Chronic Problem details: -last A1c-6.9 (2017); repeat-8.0 -Accu-Cheks; hold scheduled insulin for now pending improved oral intake/tolerance -ISS, hypoglycemia precautions -Complicated by peripheral neuropathy Other Information Additional DC diagnoses/information: -Morbid obesity: BMI-41 kg/m2 -HTN; continue oral antihypertensives -Hyperlipidemia; hold statin; can resume on d/c -hx of liver cirrhosis presumably due to fatty liver disease; noted transaminitis, repeat LFTs improved -Depression/anxiety; may resume anxiolytics and antidepressants due to hypotension -Oxygen dependent COPD, 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 Fortunately she did not require any pressor support and responded well to IVF. Stool studies were sent due to complaints of diarrhea and have been negative including C. difficile. She had abdominal CT done which showed liver cirrhosis as well as findings suspicious for acute pancreatitis though this did not fit the clinical picture as her pain was in the bilateral lower quadrants, lipase was negative and she improved much faster than I would anticipate with acute pancreatitis. He has remained hemodynamically stable even after discontinuation of IV fluids. Her oral intake has gradually improved. She has not had diarrhea in over 24 hours. She is oxygen dependent at baseline with a 2 L requirement which is what she has maintained during her hospital stay. She was moved from ICU to the regular floor for continued care overnight and has done well. She has been afebrile pain controlled on oral analgesics. She was covered empirically with ceftriaxone due to concern for possible UTI though she has otherwise been asymptomatic and repeat UA was negative. As such she will not require further antibiotic treatment on discharge. We discussed possibility of colonoscopy if she continues to have bouts of worsening diarrhea which she would like to discuss further with her primary care physician. Discharge Summary: -Patient to follow-up with her primary care physician within 1 week Physical Exam Const: COMMON NORMALS: no apparent distress and oriented x3 GENERAL APPEARANCE: cooperative, comfortable, appears older than stated age and diaphoretic; not ill appearing NUTRITIONAL APPEARANCE: obese morbidly obese ORIENTATION/CONSCIOUSNESS: Yes awake OTHER: -Resting in bed HENMT: COMMON NORMALS: normocephalic, head/scalp atraumatic and hearing grossly normal bilaterally HEAD & SCALP: normocephalic and atraumatic MOUTH: moist mucous membranes abnormal Details: parched Eye: COMMON NORMALS: PERRL, EOMs intact bilaterally and conjunctivae normal CONJUNCTIVA: Yes conjunctivae normal PUPIL: Yes PERRL Neck/C-Spine: COMMON NORMALS: full ROM GENERAL: Yes normal visual inspection and Yes trachea midline Resp: COMMON NORMALS: normal respiratory effort, no retractions, no use of accessory muscles and clear to auscultation bilaterally EFFORT & INSPECTION: Yes able to speak in complete sentences, Yes symmetric chest movement and No tachypneic AUSCULTATION: clear to auscultation bilaterally Cardio: COMMON NORMALS: regular rate, regular rhythm, S1 normal heart sound, S2 normal heart sound and no murmurs RATE: regular rate RHYTHM: regular rhythm HEART SOUNDS: S1 normal and S2 normal GI: COMMON NORMALS: normal to inspection, nondistended, normoactive bowel sounds and soft to palpation INSPECTION: Yes central obesity PALPATION: Yes soft, Yes tender (Periumbilical, right and left lower quadrants; minimal), No guarding, No rigid and No rebound tenderness present Extremity: COMMON NORMALS: normal to inspection, full ROM and no clubbing, cyanosis or edema; negative for no pedal edema Neuro: COMMON NORMALS: oriented x3, moves all extremities, no focal motor deficits and no sensory deficits noted Psych: COMMON NORMALS: mental status grossly normal, thought process normal, cooperative, affect normal and speech normal SPEECH: Yes normal speech THOUGHT PROCESS: normal thought process Skin: COMMON NORMALS: no rashes or lesions noted, no jaundice, no petechiae and no mottling GENERAL SKIN EXAM: no rashes or lesions noted Discharge Data Data Completed and Pending: Completed Studies During Hospitalization Category Date Time Status CT abdomen pelvis wo con [id number] Rout ine Cat Scan 10/13/19 14:58 Completed XR chest 1V teetee ble [id number] Stat Exams 10/12/19 11:17 Completed Labs from last 24 hours 10/16/19 10/15/19 10/15/19 06:17 21:02 16:46 POC Glucose 186 169 184 10/15/19 10/15/19 11:40 07:56 POC Glucose 235 185 Vitals: Last Vital Signs Temp 98.6 F 10/16/19 07:51 Pulse 78 10/16/19 08:03 Resp 18 10/16/19 07:51 BP 127/47 10/16/19 07:51 Pulse Ox 98 10/16/19 07:51 Discharge Plan Discharge Patient Disposition: Home, Self-Care Condition: Stable Prescriptions: Continued hydralazine 25 mg tablet 25 mg PO TID RF: 0 tramadol 50 mg tablet 100 mg PO TID PRN (Reason: pain) 30 Days Qty: 180 RF: 0 hydrocodone-acetaminophen 5-325 mg tablet 1 tab PO QID PRN (Reason: pain) 30 Days Qty: 120 RF: 0 amlodipine 10 mg tablet 10 mg PO DAILY RF: 0 digoxin [Digox] 125 mcg (0.125 mg) tablet 125 mcg PO DAILY RF: 0 ergocalciferol (vitamin D2) 50,000 unit tablet 50,000 unit PO Q7D RF: 0 Forteo 20 mcg/dose - 600 mcg/2.4 mL pen injector 20 mcg SUBCUT DAILY RF: 0 cyclobenzaprine 5 mg tablet 5 mg PO TID PRN (Reason: Spasms) RF: 0 garlic 1,000 mg capsule 1,000 mg PO DAILY RF: 0 ferrous gluconate 324 mg (37.5 mg iron) tablet 324 mg PO DAILY RF: 0 aspirin 325 mg tablet 325 mg PO BEDTIME RF: 0 Novolin 70/30 U-100 Insulin 100 unit/mL (70-30) suspension See Rx Instructions .ROUTE .COMPLEX RF: 0 furosemide [Lasix] 20 mg tablet 40 mg PO EVERY OTHER DAY RF: 0 metoprolol tartrate 50 mg tablet 100 mg PO BID RF: 0 levothyroxine 175 mcg capsule 175 mcg PO DAILY RF: 0 pantoprazole [Protonix] 40 mg tablet,delayed release (DR/EC) 40 mg PO BID RF: 0 potassium chloride 20 mEq tablet extended release 20 meq PO BID RF: 0 albuterol sulfate [ProAir HFA] 90 mcg/actuation HFA aerosol inhaler 2 puff INHALATION Q6H PRN (Reason: Shortness Of Breath) RF: 0 buspirone 5 mg tablet 5 mg PO BID Qty: 60 RF: 1 duloxetine [Cymbalta] 60 mg capsule,delayed release(DR/EC) 60 mg PO QAM Qty: 30 RF: 1 duloxetine [Cymbalta] 30 mg capsule,delayed release(DR/EC) 30 mg PO QAM Qty: 30 RF: 1 Lipitor 40 mg Tablet 40 mg PO DAILY RF: 0 pantothenic acid (vit B5) 500 mg Tablet 500 mg PO DAILY RF: 0 ChlorTabs 4 mg Tablet 4 mg PO TID RF: 0 Papaya Enzyme Tablet 4 tab PO PRN RF: 0 albuterol sulfate 2.5 mg /3 mL (0.083 %) Solution For Nebulization 2.5 mg INHALATION Q4H PRN (Reason: Shortness Of Breath) RF: 0 Vitamin B-2 100 mg Tablet 100 mg PO DAILY RF: 0 Zofran 4 mg Tablet 4 mg PO DAILY PRN (Reason: Nausea) RF: 0 Anti-Diarrheal (loperamide) 2 mg Tablet 2 - 4 mg PO DIRECTED RF: 0 Vitamin B-12 1,000 mcg Tablet 1,000 mcg PO DAILY RF: 0 Arthritis Pain Reliever 650 mg Tablet Extended Release 650 mg PO PRN RF: 0 Benadryl 25 mg Capsule 25 mg PO PRN RF: 0 Nitrostat 0.4 mg Tablet, Sublingual 0.4 mg SUBLINGUAL Q5M PRN (Reason: Chest Pain) RF: 0 Stool Softener 100 mg Capsule 100 mg PO BID PRN (Reason: Constipation) RF: 0 zinc 50 mg Tablet 50 mg PO DAILY RF: 0 Vitamin B-6 100 mg Tablet 100 mg PO DAILY RF: 0 vitamin E 400 unit Capsule 400 unit PO DAILY RF: 0 loratadine 10 mg Tablet 20 mg PO DAILY RF: 0 MSM 1,000 mg Tablet 1,000 mg PO BID RF: 0 Magtab 84 mg tablet extended release 84 mg PO BID RF: 0 Vitamin D3 25 mcg (1,000 unit) Tablet 1,000 unit PO DAILY RF: 0 Ultra [place]-3 500-1,000 mg Capsule 2 cap PO DAILY RF: 0 Liver Aid 2 tab PO DAILY RF: 0 cranberry 2 tab PO QAM RF: 0 Abilify 5 mg tablet 5 mg PO QAM RF: 0 tizanidine 4 mg capsule See Rx Instructions .ROUTE .COMPLEX PRN (Reason: muscle spasticity) RF: 0 black cohosh 40 mg Tablet 80 mg PO DAILY RF: 0 Discharge Orders: Discharge Order (Routine); Ordered 10/16/19 Ordered By: Natali Heart Referrals: Jada Gandhi MD [Primary Care Provider] - 4-7 days (Post-hospital follow up. ) Discharge Diet: Diabetic Discharge Activity: Resume usual activity Discharge Attestations Time Spent in Discharge Care*: greater than 30 min Specific Discharge Activities: Specific discharge activities: educating patient, educating and/or supporting family/caregiver, discussing with embedded case manager/social workers/dc planners, documenting/other paperwork and evaluating patient/reviewing data Status at Discharge: Cognitive status at discharge: cognitively intact, Behavioral status at discharge: cooperative, Functional status at discharge: uses cane/walker Overall status at discharge: patient is back to baseline Quality Metrics Clinical Quality Measures During this hospital stay, did patient experience: None Coding Level of Care Code Acute [employer] Technician for Chg Fwd Exam Comprehensive Diagnoses Hypotension due to hypovolemia I95.89; E86.1 Acute kidney injury N17.9 Diarrhea R19.7 Diarrhea type: unspecified type Insulin dependent diabetes mellitus E11.9; Z79.4
[2019-10-16 12:13] LABS: Glucose Point of Care 216 mg/dL (70-110)
[2019-10-16] MEDS: cefTRIAXone 1,000 MG in sodium chloride 0.9% (plus) 50 ML 100 MG IV (13:44)
== END 2019-10-16 16:00 | disposition home or self-care (01) | DRG 683 ==
LOC: ER 09:52 → ICU 11:31 → MEDSURG 10-15 19:47
PROVIDERS: Admitting Provider Family Medicine; Emergency Provider Emergency Medicine; Family Provider Family Medicine; PCP Family Medicine; Visit Provider Family Medicine
DX: N17.9 Acute kidney failure, unspecified (principal); Z68.41 Body mass index [BMI] 40.0-44.9, adult; N39.0 Urinary tract infection, site not specified; I50.42 Chronic combined systolic (congestive) and diastolic (congestive) heart failure; I13.0 Hypertensive heart and chronic kidney disease with heart failure and stage 1 through stage 4 chronic kidney disease, or unspecified chronic kidney disease; E87.2 Acidosis; I95.9 Hypotension, unspecified; E86.0 Dehydration; Z87.891 Personal history of nicotine dependence; E78.5 Hyperlipidemia, unspecified; N18.3 Chronic kidney disease, stage 3 (moderate); E11.22 Type 2 diabetes mellitus with diabetic chronic kidney disease; E66.01 Morbid (severe) obesity due to excess calories; F32.9 Major depressive disorder, single episode, unspecified; F41.9 Anxiety disorder, unspecified; E03.9 Hypothyroidism, unspecified; J44.9 Chronic obstructive pulmonary disease, unspecified; Z79.4 Long term (current) use of insulin; Z79.899 Other long term (current) drug therapy; Z88.8 Allergy status to other drugs, medicaments and biological substances; Z88.5 Allergy status to narcotic agent; E86.1 Hypovolemia; R19.7 Diarrhea, unspecified; K74.60 Unspecified cirrhosis of liver; E11.42 Type 2 diabetes mellitus with diabetic polyneuropathy; K21.9 Gastro-esophageal reflux disease without esophagitis; G89.29 Other chronic pain; R11.2 Nausea with vomiting, unspecified
CPT/HCPCS: 12345; 36415; 36416; 71045; 74176; 80048; 80053; 80162; 81001; 82962; 83036; 83605; 83690; 85025; 87493; 87505; 93005; 96360; 96361; 96372; 96375; 99282; A9270; J0696; J1644; J1815; J2270; J2405; J7030

== ENCOUNTER → 2019-10-30 14:30 | Outpatient (BNVA) | payer MEDICARE, SELFPAY | PROVIDERS: Family Provider Family Medicine; PCP Family Medicine; Referring Provider Emergency Medicine; Visit Provider Nurse Practitioner Family | DX: N39.0 Urinary tract infection, site not specified (principal); N28.89 Other specified disorders of kidney and ureter; N39.41 Urge incontinence | CPT/HCPCS: 81001 ==

== ENCOUNTER → 2019-11-03 08:45 | Outpatient (BNVA) | payer SELFPAY | PROVIDERS: Family Provider Family Medicine; PCP Family Medicine; Visit Provider Nurse Practitioner Psychiatric/Mental Health | DX: G47.30 Sleep apnea, unspecified (principal); F43.12 Post-traumatic stress disorder, chronic; F33.3 Major depressive disorder, recurrent, severe with psychotic symptoms | CPT/HCPCS: 99213 ==

== ENCOUNTER → 2019-11-27 08:34 | Outpatient (BNVA) | payer MEDICARE, SELFPAY | PROVIDERS: Family Provider Family Medicine; PCP Family Medicine; Visit Provider Nurse Practitioner | DX: Z76.89 Persons encountering health services in other specified circumstances (principal) | CPT/HCPCS: 99213 ==

== ENCOUNTER → 2019-12-11 08:26 | Outpatient (BNVA) | payer MEDICARE, SELFPAY | PROVIDERS: Family Provider Family Medicine; PCP Family Medicine; Visit Provider Social Worker | DX: F33.3 Major depressive disorder, recurrent, severe with psychotic symptoms (principal); F43.12 Post-traumatic stress disorder, chronic | CPT/HCPCS: 90832 ==

== ENCOUNTER 2019-12-24 01:44 | Observation (INO) | payer MEDICARE, SELFPAY ==
[2019-12-24] VITALS (14 sets, daily range): BP systolic 140–195; BP diastolic 69–97; PULSE 86–129; RESP 16–24; TEMP 36.8–37.5; O2SAT 89–100; BMI 39.9
--- NOTE | 2019-12-24 01:57 | CTR_ITS ---
PROCEDURE INFORMATION: Exam: CT Head Without Contrast Exam date and time: 12/24/2019 1:59 AM Age: 69 years old Clinical indication: Pain; Headache; Additional info: Rainey/ams TECHNIQUE: Imaging protocol: Computed tomography of the head without contrast. Radiation optimization: All CT scans at this facility use at least one of these dose optimization techniques: automated exposure control; mA and/or kV adjustment per patient size (includes targeted exams where dose is matched to clinical indication); or iterative reconstruction. COMPARISON: CT head wo con* [id number] 09/25/2019 12:49 AM RADIATION DOSE METRICS: Total DLP: 932.03 mGy-cm FINDINGS: Brain: No acute intracranial hemorrhage or mass effect. There is mild decreased attenuation in the periventricular white matter, likely from microvascular disease. No definite acute infarct by CT. MRI could be more sensitive/specific for detection, as clinically directed. Ventricles: Ventricle size is normal for age. Bones/joints: No definite acute skull fracture. Sinuses: Included paranasal sinuses are essentially clear. Mastoid air cells: No significant acute finding. Vasculature: Vascular calcifications in the internal carotid and vertebral basilar systems. CT/CT head wo con* [id number] IMPRESSION: 1. No acute intracranial hemorrhage or mass effect. 2. Changes of microvascular disease. 3. No definite acute infarct by CT, see above. 4. Other findings discussed above. Radiation Dose CTDIVOL = (mGy): DLP = 932.03 (mGy-cm)
--- NOTE | 2019-12-24 01:57 | XR_ITS ---
WS: [id number] PORTABLE CHEST HISTORY: cough COMPARISON: 10/12/2019 Mild interstitial thickening. No pneumonia. No pleural effusion or pneumothorax. Cardiac size: Mildly enlarged cardiac silhouette. Mediastinum/Aorta: Mild atherosclerosis aorta. No osseous abnormality seen. XR/XR chest 1V portable [id number] IMPRESSION: Mild chronic lung disease. No acute pneumonia.
--- NOTE | 2019-12-24 01:58 | ECG_ITS ---
Measurements Intervals [place] Rate: 85 P: 70 MO: 205 QRS: -80 QRSD: 151 T: 50 QT: 457 QTc: 545 SINUS RHYTHM RIGHT BUNDLE BRANCH BLOCK LEFT ANTERIOR FASCICULAR BLOCK MODERATE VOLTAGE CRITERIA FOR LVH, CONSIDER NORMAL VARIANT POSSIBLE SEPTAL MYOCARDIAL INFARCTION,OF INDETERMINATE AG Compared to ECG 10/12/2019 14:01:45 ST (T wave) deviation no longer present Myocardial infarct finding still present Electronically Signed On 12-24-2019 19:34:22 CDT by Lucia Oakley M.D. [email or web address]
[2019-12-24 02:33] LABS: Basophils % 0.3 %; Hematocrit 34.9 % (37.0-47.0); Hemoglobin 11.2 g/dL (11.5-15.3); Lymphocytes # 1.5 10^3/uL (0.8-4.8); Lymphocytes % 15.7 %; Mean Corpuscular HGB Conc 32.1 g/dL (30.0-36.0); Mean Corpuscular Hemoglobin 30.7 pg (28.0-34.0); Mean Corpuscular Volume 95.6 fL (81-99); Mean Platelet Volume 9.2 fL (7.4-10.4); Monocytes # 0.9 10^3/uL (0.2-0.9); Monocytes % 9.2 %; Neutrophils % 74.3 %; Nucleated Red Blood Cells % 0 %; Platelet Count 272 10^3/cmm (130-400); Red Blood Count 3.65 10^6/uL (4.1-5.3); Red Cell Distribution Width 13.9 % (12.1-15.1); White Blood Count 9.5 10^3/uL (4.0-10.0)
[2019-12-24] MEDS: sodium chloride 0.9% 1,000 ML 100 ML IV (02:45)
[2019-12-24 02:47] LABS: Alanine Aminotransferase 25 U/L (0-33); Albumin Level 3.8 g/dL (3.5-5.2); Alkaline Phosphatase 114 IU/L (35-105); Anion Gap 15.3 (5-19); Aspartate Amino Transferase 36 U/L (0-32); Blood Urea Nitrogen 25 mg/dL (8-23); Carbon Dioxide 34 mmol/L (22-29); Chloride 94 mmol/L (98-107); Creatine Phosphokinase 27 U/L (26-192); Globulin 3.9 g/dL (1.3-4.6); Glucose 247 mg/dL (65-115); Lipase 24 U/L (13-60); Magnesium 1.9 mg/dL (1.7-2.3); Osmolality Calculated 295 mOsm/kg (285-295); Potassium 3.3 mmol/L (3.5-5.1); Sodium 140 mmol/L (136-145); Total Bilirubin 0.3 mg/dL (0.15-1.2); Total Protein 7.7 g/dL (6.6-8.7)
[2019-12-24 02:48] LABS: Ammonia 19 umol/L (11-51); Lactic Sepsis W/Reflex 1.9 mmol/L (0.5-2.2)
[2019-12-24 02:49] LABS: Troponin(5th) Baseline 27 ng/mL (0-10)
[2019-12-24 02:57] LABS: Alcohol Level < 10 mg/dL (0-10); Ketone (Acetest) Serum Negative (Negative)
--- NOTE | 2019-12-24 03:06 | CTR_ITS ---
PROCEDURE INFORMATION: Exam: CT Abdomen And Pelvis With Contrast Exam date and time: 12/24/2019 3:31 AM Age: 69 years old Clinical indication: Abdominal pain; Generalized TECHNIQUE: Imaging protocol: Computed tomography of the abdomen and pelvis with intravenous contrast. Radiation optimization: All CT scans at this facility use at least one of these dose optimization techniques: automated exposure control; mA and/or kV adjustment per patient size (includes targeted exams where dose is matched to clinical indication); or iterative reconstruction. Contrast material: VISI; Contrast volume: 95 ml; Contrast route: 20G; COMPARISON: CT abdomen pelvis w con* [id number] 09/25/2019 2:39 AM RADIATION DOSE METRICS: Total DLP: 2097.74 mGy-cm FINDINGS: Lungs: Minor pleural parenchymal scarring or atelectasis lower lungs. Calcified granuloma left lower lobe laterally. Liver: The liver more especially left hepatic lobe is slightly nodular in contour anteriorly. Stable small hypodensity in the right hepatic lobe limited by motion blur. Gallbladder and bile ducts: Postoperative cholecystectomy. Pancreas: Normal. No ductal dilation. Spleen: Calcifications within the spleen. Adrenals: Normal. No mass. Kidneys and ureters: Bilateral renal cortical thinning. Bilateral intrarenal nonobstructive calculi. Bilateral a low attenuating areas within the kidneys too small for definitive characterization. Stomach and bowel: A portion of the right lateral abdominal wall and bowel are not included in the field of view. Mild expansion of small bowel segments central left abdomen are similar to the prior CT. Appendix: Indistinction of the distal appendix is probably on the basis of motion blur with no significant surrounding fat stranding. Intraperitoneal space: Unremarkable. No free air. No significant fluid collection. Vasculature: Calcified abdominal aorta and distribution of coronary arteries. Lymph nodes: Small gastrohepatic ligament lymph nodes. There is minor fat stranding or congestion at the celiac region surrounding branching vasculature. Bladder: Unremarkable as visualized. Reproductive: Postoperative hysterectomy. Bones/joints: Degenerative change of the spine. Soft tissues: Limited examination secondary to patient body habitus. Minimal midline abdominal wall hernia. CT/CT abdomen pelvis w con* [id number] IMPRESSION: 1. Nodular contour of the liver. 2. Small gastrohepatic ligament lymph nodes with minor soft tissue stranding, congestion or motion blur celiac region. 3. Multiple low attenuating areas within the kidneys probably reflecting cyst are of too small for definitive characterization.No further workup is recommended. 4. Bilateral intrarenal nonobstructive calculi. Radiation Dose CTDIVOL = (mGy): DLP = 2097.74 (mGy-cm)
[2019-12-24 03:10] LABS: ABG PCO2 49.6 mmHg (35-45); ABG PH Result 7.47 (7.35-7.45); Arterial Blood Gas Hematocrit 34.3 % (37-47); Base Excess ABG 10.9 mmol/L (-2.0-2.0); Blood Gas Allen Test Pos; Blood Gas Sample Site Radial, right; Blood Gas Sample Type Arterial; HCO3 ABG 36.1 mmol/L (22-26); Oxygen Device NC; PO2 ABG 51.9 mmHg (80.0-100.0)
--- NOTE | 2019-12-24 03:33 | W.ED.WEAKNES ---
Documented by User: Candice Menjivar 12/24/19 05:22 HPI - Weakness General: Chief complaint: Weakness Stated complaint: WEAKNESS Time Seen by Provider: 12/24/19 01:45 History of Present Illness: HPI Narrative: Ms. Parker is a nice 69-year-old female who comes in complaining of generalized weakness for the past day and a half. She states that all she wants to do is sleep and rest. She does complain of diffuse abdominal pain. She denies headache, fever, chest pain, shortness of breath only generalized weakness and malaise. The patient does not very readily answer questions and is deemed a poor historian. Review of Systems General: Reports: other (ROS unobtainable other than as noted in HPI due to patient being poor historian) PFSH ED PFSH: Medical History Anxiety and depression Cholecystectomy planned Chronic combined systolic and diastolic CHF (congestive heart failure) COPD (chronic obstructive pulmonary disease) Oxygen dependent, 2 L at baseline Encounter for long-term opiate analgesic use Hyperlipidemia Hypertension Hypothyroidism Left renal mass Liver cirrhosis Low back pain of over 3 months duration Morbid obesity Opioid contract exists Recurrent UTI Urgency incontinence Surgical History History of cardiac cath History of hysterectomy History of knee replacement History of thyroid surgery Family History Other CAD (coronary artery disease) Cancer Denies family history of Anesthesia complication Bleeding disorder Social History Smoking and tobacco status: former smoker Quit status (tobacco): has quit using tobacco Year quit tobacco: 2005 Second hand smoke exposure: No Alcohol intake: unknown Adopted: No Caregiver/support person: No Lives independently: No Household members: spouse Marital status: Current occupational status: retired History of recent travel: No Current gender identity: Female Physical Exam Const: COMMON NORMALS: no apparent distress, oriented x3, no limitations, healthy appearing and well nourished EXAM LIMITATIONS: no altered mental status GENERAL APPEARANCE: cooperative, well kempt and well developed ORIENTATION/CONSCIOUSNESS: Yes awake HENMT: COMMON NORMALS: normocephalic, head/scalp atraumatic, hearing grossly normal bilaterally, external ears normal, EAC's normal, external nose normal and moist oral mucous membranes HEAD & SCALP: normal to inspection, normocephalic and atraumatic FACE & SINUS: normal facial exam and face symmetric NOSE: external nose normal and nares normal EXTERNAL EAR: Yes external ears normal EXTERNAL AUDITORY CANAL: EAC's normal MOUTH: oral and palatal mucosa normal and tongue normal Eye: COMMON NORMALS: PERRL, EOMs intact bilaterally, conjunctivae normal and no scleral icterus GENERAL EYE: normal appearance of both eyes and normal light reflex CONJUNCTIVA: Yes conjunctivae normal SCLERA: sclerae normal CORNEA: Yes corneas normal PUPIL: Yes PERRL DIRECT OPHTHALMOSCOPY: Yes normal light reflex Neck/C-Spine: COMMON NORMALS: full ROM, no lymphadenopathy, supple, no meningeal signs and no JVD GENERAL: Yes normal visual inspection and Yes trachea midline CERVICAL SPINE: Yes cervical ROM normal Chest: COMMONS NORMALS: inspection of chest normal and palpation of chest normal Resp: COMMON NORMALS: normal respiratory effort, no retractions, no use of accessory muscles and clear to auscultation bilaterally EFFORT & INSPECTION: Yes able to speak in complete sentences AUSCULTATION: clear to auscultation bilaterally Cardio: COMMON NORMALS: no JVD, regular rate, regular rhythm, S1 normal heart sound, S2 normal heart sound, no gallops, no clicks, no murmurs and no rub JUGULAR VENOUS DISTENTION: no JVD RATE: regular rate RHYTHM: regular rhythm HEART SOUNDS: S1 normal and S2 normal GI: COMMON NORMALS: soft to palpation, no hepatosplenomegaly and no masses PALPATION: Yes soft, Yes tender (Mild diffusely) and Yes no hepatosplenomegaly : COMMON NORMALS: Yes no CVA tenderness BLADDER/KIDNEY EXAM: Yes no CVA tenderness Back/Pelvis: COMMON NORMALS: no CVA tenderness, thoracic and lumbar spine normal to inspection, no thoracic nor lumbar tenderness and thoraco-lumbar ROM normal Extremity: COMMON NORMALS: normal to inspection, full ROM, normal capillary refill, no joint enlargement, no clubbing, cyanosis or edema and no calf tenderness Neuro: COMMON NORMALS: oriented x3, CN's II-XII intact bilaterally, moves all extremities, no focal motor deficits and no sensory deficits noted MENINGEAL SIGNS: Yes no meningeal signs Psych: COMMON NORMALS: mental status grossly normal, thought process normal, cooperative, affect normal, speech normal and activity/motor behavior normal APPEARANCE: Yes well kempt SPEECH: Yes normal speech THOUGHT PROCESS: normal thought process Skin: COMMON NORMALS: no rashes or lesions noted, skin turgor normal, no jaundice, no petechiae and no mottling GENERAL SKIN EXAM: no rashes or lesions noted and turgor normal Course Vital Signs: Vital signs: Vital Signs Temperature 98 F 12/25/19 04:00 Pulse Rate 82 12/25/19 04:00 Respiratory Rate 24 H 12/25/19 04:00 Blood Pressure 174/76 12/25/19 04:00 Pulse Oximetry 93 12/25/19 04:00 MDM - Weakness Lab Data: Labs: Lab Results 12/24/19 12/24/19 12/24/19 Range/Units 02:27 02:27 02:27 WBC 9.5 (4.0-10.0) 10^3/ uL RBC 3.65 L (4.1-5.3) 10^6/u L Hgb 11.2 L (11.5-15.3) g/dL Hct 34.9 L (37.0-47.0) % MCV 95.6 (81-99) fL MCH 30.7 (28.0-34.0) pg MCHC 32.1 (30.0-36.0) g/dL RDW 13.9 (12.1-15.1) % Plt Count 272 (130-400) 10^3/c mm MPV 9.2 (7.4-10.4) fL Neut % (Auto) 74.3 % Lymph % (Auto) 15.7 % [place] % (Auto) 9.2 % Eos % (Auto) 0.0 % Baso % (Auto) 0.3 % Neut # (Auto) 7.0 (1.8-7.7) 10^3/u L Lymph # (Auto) 1.5 (0.8-4.8) 10^3/u L [place] # (Auto) 0.9 (0.2-0.9) 10^3/u L Eos # (Auto) 0.0 (0.0-0.8) 10^3/u L Baso # (Auto) 0.0 (0.0-0.1) 10^3/u L Nucleated RBC % (a uto) 0 % Nucleated RBCs # 0.0 /100WBC Specimen Type Sample Site ABG pH (7.35-7.45) ABG pCO2 (35-45) mmHg ABG pO2 (80.0-100.0) mmH g ABG HCO3 (22-26) mmol/L ABG Base Excess (-2.0-2.0) mmol/ L Memo Test Hematocrit (37-47) % O2 Delivery Device O2 Liters/Min % Supervisor [employer] ID Sodium 140 (136-145) mmol/L Potassium 3.3 L (3.5-5.1) mmol/L Chloride 94 L (98-107) mmol/L Carbon Dioxide 34 H (22-29) mmol/L Anion Gap 15.3 (5-19) BUN 25 H (8-23) mg/dL Creatinine 1.0 H (0.5-0.9) mg/dL Glucose 247 H (65-115) mg/dL Calculated Osmolal ity 295 (285-295) mOsm/k g Lactic Acid 1.9 (0.5-2.2) mmol/L Calcium 11.0 H (8.5-10.5) mg/dL Magnesium 1.9 (1.7-2.3) mg/dL Total Bilirubin 0.3 (0.15-1.2) mg/dL AST 36 H (0-32) U/L ALT 25 (0-33) U/L Alkaline Phosphata se 114 H (35-105) IU/L Ammonia (11-51) umol/L Creatine Kinase 27 (26-192) U/L Troponin I 6 Hour (0-10) ng/mL Troponin I Hi Sens Del (0-12) ng/L Troponin T Baselin e (0-10) ng/mL Troponin T 120 Min [place] (0-10) ng/mL Delta Troponin T (0-10) ABS# Total Protein 7.7 (6.6-8.7) g/dL Albumin 3.8 (3.5-5.2) g/dL Globulin 3.9 (1.3-4.6) g/dL Lipase 24 (13-60) U/L TSH (0.27-4.20) uIU/ mL Urine Color (Yellow) Urine Appearance (CLEAR) Urine pH (5-7) Ur Specific Gravit y (1.005-1.030) Urine Protein (Negative) Urine Glucose (UA) (Normal) Urine Ketones (Negative) Urine Blood (Negative) Urine Nitrate (Negative) Urine Bilirubin (NEGATIVE) Urine Urobilinogen (Negative) mg/dL Ur Leukocyte Dorota ase (Negative) Urine RBC (0-2) /hpf Urine WBC (0-5) /hpf Ur Squamous Epith Cells (0-5) Urine Bacteria (NONE) Ethyl Alcohol < 10 (0-10) mg/dL Serum Ketones (Negative) 12/24/19 12/24/19 12/24/19 Range/Units 02:27 02:27 02:27 WBC (4.0-10.0) 10^3/ uL RBC (4.1-5.3) 10^6/u L Hgb (11.5-15.3) g/dL Hct (37.0-47.0) % MCV (81-99) fL MCH (28.0-34.0) pg MCHC (30.0-36.0) g/dL RDW (12.1-15.1) % Plt Count (130-400) 10^3/c mm MPV (7.4-10.4) fL Neut % (Auto) % Lymph % (Auto) % [place] % (Auto) % Eos % (Auto) % Baso % (Auto) % Neut # (Auto) (1.8-7.7) 10^3/u L Lymph # (Auto) (0.8-4.8) 10^3/u L [place] # (Auto) (0.2-0.9) 10^3/u L Eos # (Auto) (0.0-0.8) 10^3/u L Baso # (Auto) (0.0-0.1) 10^3/u L Nucleated RBC % (a uto) % Nucleated RBCs # /100WBC Specimen Type Sample Site ABG pH (7.35-7.45) ABG pCO2 (35-45) mmHg ABG pO2 (80.0-100.0) mmH g ABG HCO3 (22-26) mmol/L ABG Base Excess (-2.0-2.0) mmol/ L Memo Test Hematocrit (37-47) % O2 Delivery Device O2 Liters/Min % Supervisor [employer] ID Sodium (136-145) mmol/L Potassium (3.5-5.1) mmol/L Chloride (98-107) mmol/L Carbon Dioxide (22-29) mmol/L Anion Gap (5-19) BUN (8-23) mg/dL Creatinine (0.5-0.9) mg/dL Glucose (65-115) mg/dL Calculated Osmolal ity (285-295) mOsm/k g Lactic Acid (0.5-2.2) mmol/L Calcium (8.5-10.5) mg/dL Magnesium (1.7-2.3) mg/dL Total Bilirubin (0.15-1.2) mg/dL AST (0-32) U/L ALT (0-33) U/L Alkaline Phosphata se (35-105) IU/L Ammonia 19 (11-51) umol/L Creatine Kinase (26-192) U/L Troponin I 6 Hour (0-10) ng/mL Troponin I Hi Sens Del (0-12) ng/L Troponin T Baselin e 27 H (0-10) ng/mL Troponin T 120 Min [place] (0-10) ng/mL Delta Troponin T (0-10) ABS# Total Protein (6.6-8.7) g/dL Albumin (3.5-5.2) g/dL Globulin (1.3-4.6) g/dL Lipase (13-60) U/L TSH (0.27-4.20) uIU/ mL Urine Color (Yellow) Urine Appearance (CLEAR) Urine pH (5-7) Ur Specific Gravit y (1.005-1.030) Urine Protein (Negative) Urine Glucose (UA) (Normal) Urine Ketones (Negative) Urine Blood (Negative) Urine Nitrate (Negative) Urine Bilirubin (NEGATIVE) Urine Urobilinogen (Negative) mg/dL Ur Leukocyte Dorota ase (Negative) Urine RBC (0-2) /hpf Urine WBC (0-5) /hpf Ur Squamous Epith Cells (0-5) Urine Bacteria (NONE) Ethyl Alcohol (0-10) mg/dL Serum Ketones Negative (Negative) 12/24/19 12/24/19 12/24/19 Range/Units 02:50 04:40 06:02 WBC (4.0-10.0) 10^3/ uL RBC (4.1-5.3) 10^6/u L Hgb (11.5-15.3) g/dL Hct (37.0-47.0) % MCV (81-99) fL MCH (28.0-34.0) pg MCHC (30.0-36.0) g/dL RDW (12.1-15.1) % Plt Count (130-400) 10^3/c mm MPV (7.4-10.4) fL Neut % (Auto) % Lymph % (Auto) % [place] % (Auto) % Eos % (Auto) % Baso % (Auto) % Neut # (Auto) (1.8-7.7) 10^3/u L Lymph # (Auto) (0.8-4.8) 10^3/u L [place] # (Auto) (0.2-0.9) 10^3/u L Eos # (Auto) (0.0-0.8) 10^3/u L Baso # (Auto) (0.0-0.1) 10^3/u L Nucleated RBC % (a uto) % Nucleated RBCs # /100WBC Specimen Type Arterial Sample Site Radial, right ABG pH 7.47 H (7.35-7.45) ABG pCO2 49.6 H (35-45) mmHg ABG pO2 51.9 L (80.0-100.0) mmH g ABG HCO3 36.1 H (22-26) mmol/L ABG Base Excess 10.9 H (-2.0-2.0) mmol/ L Memo Test Pos Hematocrit 34.3 L (37-47) % O2 Delivery Device Nc O2 Liters/Min 2.0 % Super[employer] ID [email or web address] Sodium (136-145) mmol/L Potassium (3.5-5.1) mmol/L Chloride (98-107) mmol/L Carbon Dioxide (22-29) mmol/L Anion Gap (5-19) BUN (8-23) mg/dL Creatinine (0.5-0.9) mg/dL Glucose (65-115) mg/dL Calculated Osmolal ity (285-295) mOsm/k g Lactic Acid (0.5-2.2) mmol/L Calcium (8.5-10.5) mg/dL Magnesium (1.7-2.3) mg/dL Total Bilirubin (0.15-1.2) mg/dL AST (0-32) U/L ALT (0-33) U/L Alkaline Phosphata se (35-105) IU/L Ammonia 19 (11-51) umol/L Creatine Kinase (26-192) U/L Troponin I 6 Hour (0-10) ng/mL Troponin I Hi Sens Del (0-12) ng/L Troponin T Baselin e (0-10) ng/mL Troponin T 120 Min [place] 23.85 H (0-10) ng/mL Delta Troponin T -3.15 L (0-10) ABS# Total Protein (6.6-8.7) g/dL Albumin (3.5-5.2) g/dL Globulin (1.3-4.6) g/dL Lipase (13-60) U/L TSH (0.27-4.20) uIU/ mL Urine Color (Yellow) Urine Appearance (CLEAR) Urine pH (5-7) Ur Specific Gravit y (1.005-1.030) Urine Protein (Negative) Urine Glucose (UA) (Normal) Urine Ketones (Negative) Urine Blood (Negative) Urine Nitrate (Negative) Urine Bilirubin (NEGATIVE) Urine Urobilinogen (Negative) mg/dL Ur Leukocyte Dorota ase (Negative) Urine RBC (0-2) /hpf Urine WBC (0-5) /hpf Ur Squamous Epith Cells (0-5) Urine Bacteria (NONE) Ethyl Alcohol (0-10) mg/dL Serum Ketones (Negative) 12/24/19 12/24/19 12/24/19 Range/Units 06:20 08:24 08:24 WBC (4.0-10.0) 10^3/ uL RBC (4.1-5.3) 10^6/u L Hgb (11.5-15.3) g/dL Hct (37.0-47.0) % MCV (81-99) fL MCH (28.0-34.0) pg MCHC (30.0-36.0) g/dL RDW (12.1-15.1) % Plt Count (130-400) 10^3/c mm MPV (7.4-10.4) fL Neut % (Auto) % Lymph % (Auto) % [place] % (Auto) % Eos % (Auto) % Baso % (Auto) % Neut # (Auto) (1.8-7.7) 10^3/u L Lymph # (Auto) (0.8-4.8) 10^3/u L [place] # (Auto) (0.2-0.9) 10^3/u L Eos # (Auto) (0.0-0.8) 10^3/u L Baso # (Auto) (0.0-0.1) 10^3/u L Nucleated RBC % (a uto) % Nucleated RBCs # /100WBC Specimen Type Sample Site ABG pH (7.35-7.45) ABG pCO2 (35-45) mmHg ABG pO2 (80.0-100.0) mmH g ABG HCO3 (22-26) mmol/L ABG Base Excess (-2.0-2.0) mmol/ L Memo Test Hematocrit (37-47) % O2 Delivery Device O2 Liters/Min % Supervisor [employer] ID Sodium (136-145) mmol/L Potassium (3.5-5.1) mmol/L Chloride (98-107) mmol/L Carbon Dioxide (22-29) mmol/L Anion Gap (5-19) BUN (8-23) mg/dL Creatinine (0.5-0.9) mg/dL Glucose (65-115) mg/dL Calculated Osmolal ity (285-295) mOsm/k g Lactic Acid (0.5-2.2) mmol/L Calcium (8.5-10.5) mg/dL Magnesium (1.7-2.3) mg/dL Total Bilirubin (0.15-1.2) mg/dL AST (0-32) U/L ALT (0-33) U/L Alkaline Phosphata se (35-105) IU/L Ammonia (11-51) umol/L Creatine Kinase (26-192) U/L Troponin I 6 Hour 22.75 H (0-10) ng/mL Troponin I Hi Sens Del -4.25 L (0-12) ng/L Troponin T Baselin e (0-10) ng/mL Troponin T 120 Min [place] (0-10) ng/mL Delta Troponin T (0-10) ABS# Total Protein (6.6-8.7) g/dL Albumin (3.5-5.2) g/dL Globulin (1.3-4.6) g/dL Lipase (13-60) U/L TSH 0.33 (0.27-4.20) uIU/ mL Urine Color Yellow (Yellow) Urine Appearance Cloudy (CLEAR) Urine pH 5.0 (5-7) Ur Specific Gravit y 1.015 (1.005-1.030) Urine Protein 3+ H (Negative) Urine Glucose (UA) Norm (Normal) Urine Ketones 1+ H (Negative) Urine Blood Neg (Negative) Urine Nitrate Negative (Negative) Urine Bilirubin Neg (NEGATIVE) Urine Urobilinogen Norm (Negative) mg/dL Ur Leukocyte Dorota ase 1+ H (Negative) Urine RBC None (0-2) /hpf Urine WBC 40-55 H (0-5) /hpf Ur Squamous Epith Cells 0-4 H (0-5) Urine Bacteria 4+ H (NONE) Ethyl Alcohol (0-10) mg/dL Serum Ketones (Negative) Imaging Data^: CXR: My impression: No acute cardiopulmonary findings CT Head: Radiologist's impression: [place] [address] CT Scan Report Signed Patient: Myesha Parker Unit #: [id number] : 1950 Age/Sex: 69 / F ADM Date: 12/24/19 Loc: ER Room/Bed: Attending Dr: Ordering Provider/Ordering MD: Candice Menjivar DO Date of Service: 12/24/19 Procedure(s): CT head wo con* [id number] Accession Number(s): [id number] Report Number: [id number] PROCEDURE INFORMATION: Exam: CT Head Without Contrast Exam date and time: 12/24/2019 1:59 AM Age: 69 years old Clinical indication: Pain; Headache; Additional info: Rainey/ams TECHNIQUE: Imaging protocol: Computed tomography of the head without contrast. Radiation optimization: All CT scans at this facility use at least one of these dose optimization techniques: automated exposure control; mA and/or kV adjustment per patient size (includes targeted exams where dose is matched to clinical indication); or iterative reconstruction. COMPARISON: CT head wo con* [id number] 09/25/2019 12:49 AM RADIATION DOSE METRICS: Total DLP: 932.03 mGy-cm FINDINGS: Brain: No acute intracranial hemorrhage or mass effect. There is mild decreased attenuation in the periventricular white matter, likely from microvascular disease. No definite acute infarct by CT. MRI could be more sensitive/specific for detection, as clinically directed. Ventricles: Ventricle size is normal for age. Bones/joints: No definite acute skull fracture. Sinuses: Included paranasal sinuses are essentially clear. Mastoid air cells: No significant acute finding. Vasculature: Vascular calcifications in the internal carotid and vertebral basilar systems. CT/CT head wo con* [id number] IMPRESSION: 1. No acute intracranial hemorrhage or mass effect. 2. Changes of microvascular disease. 3. No definite acute infarct by CT, see above. 4. Other findings discussed above. Radiation Dose CTDIVOL = (mGy): DLP = 932.03 (mGy-cm) Dictated By: Tex Coombs MD Signed By: Tex Coombs MD Signed Date/Time: 12/24/19436 DD/ 5 CT Abd/Pel: Radiologist's impression: [place] [address] CT Scan Report Signed Patient: Myesha Parker Unit #: [id number] : 1950 Age/Sex: 69 / F ADM Date: 12/24/19 Loc: ER Room/Bed: Attending Dr: Ordering Provider/Ordering MD: Candice Menjivar DO Date of Service: 12/24/19 Procedure(s): CT abdomen pelvis w con* [id number] Accession Number(s): [id number] Report Number: [id number] PROCEDURE INFORMATION: Exam: CT Abdomen And Pelvis With Contrast Exam date and time: 12/24/2019 3:31 AM Age: 69 years old Clinical indication: Abdominal pain; Generalized TECHNIQUE: Imaging protocol: Computed tomography of the abdomen and pelvis with intravenous contrast. Radiation optimization: All CT scans at this facility use at least one of these dose optimization techniques: automated exposure control; mA and/or kV adjustment per patient size (includes targeted exams where dose is matched to clinical indication); or iterative reconstruction. Contrast material: VISI; Contrast volume: 95 ml; Contrast route: 20G; COMPARISON: CT abdomen pelvis w con* [id number] 09/25/2019 2:39 AM RADIATION DOSE METRICS: Total DLP: 2097.74 mGy-cm FINDINGS: Lungs: Minor pleural parenchymal scarring or atelectasis lower lungs. Calcified granuloma left lower lobe laterally. Liver: The liver more especially left hepatic lobe is slightly nodular in contour anteriorly. Stable small hypodensity in the right hepatic lobe limited by motion blur. Gallbladder and bile ducts: Postoperative cholecystectomy. Pancreas: Normal. No ductal dilation. Spleen: Calcifications within the spleen. Adrenals: Normal. No mass. Kidneys and ureters: Bilateral renal cortical thinning. Bilateral intrarenal nonobstructive calculi. Bilateral a low attenuating areas within the kidneys too small for definitive characterization. Stomach and bowel: A portion of the right lateral abdominal wall and bowel are not included in the field of view. Mild expansion of small bowel segments central left abdomen are similar to the prior CT. Appendix: Indistinction of the distal appendix is probably on the basis of motion blur with no significant surrounding fat stranding. Intraperitoneal space: Unremarkable. No free air. No significant fluid collection. Vasculature: Calcified abdominal aorta and distribution of coronary arteries. Lymph nodes: Small gastrohepatic ligament lymph nodes. There is minor fat stranding or congestion at the celiac region surrounding branching vasculature. Bladder: Unremarkable as visualized. Reproductive: Postoperative hysterectomy. Bones/joints: Degenerative change of the spine. Soft tissues: Limited examination secondary to patient body habitus. Minimal midline abdominal wall hernia. CT/CT abdomen pelvis w con* [id number] IMPRESSION: 1. Nodular contour of the liver. 2. Small gastrohepatic ligament lymph nodes with minor soft tissue stranding, congestion or motion blur celiac region. 3. Multiple low attenuating areas within the kidneys probably reflecting cyst are of too small for definitive characterization.No further workup is recommended. 4. Bilateral intrarenal nonobstructive calculi. Radiation Dose CTDIVOL = (mGy): DLP = 2097.74 (mGy-cm) Dictated By: Essence Alejandro DO Signed By: Essence Alejandro DO Signed Date/Time: 12/24/19448 DD/ 7 EKG Data^: EKG 1: Attestation: I personally reviewed and interpreted this EKG as follows: EKG interpretation date: 12/24/19 EKG interpretation time: 02:37 Interpretation: Normal sinus rhythm at 85 beats a minute, right bundle branch block, nonspecific ST and T wave changes. Similar to previous. EKG 2: Attestation: I personally reviewed and interpreted this EKG as follows: EKG interpretation date: 12/24/19 EKG interpretation time: 04:48 Interpretation: Normal sinus rhythm with first-degree AV block. Ventricular rate 84 beats a minute, right bundle branch block, nonspecific ST-T wave changes. Unchanged from previous. Discharge Plan Discharge Patient Disposition: Placed in Observation Admit Provider: vIeth Mendez Clinical Impression: Generalized weakness, Cystitis Condition: Stable Referrals: Jada Gandhi MD [Primary Care Provider] - Discharge Date/Time: 12/24/19 11:46 Sign Out Sign Out Data: Patient Sign Out occurred on 12/24/19 at 07:00. Patient's care was discussed, and care was transferred from to Kenrick Treviño DO. Coding Level of Care Code ED Multicraft Operator for Chg Fwd Exam Comprehensive Documented by User: Kenrick Treviño DO 12/25/19 06:13 HPI - Weakness General: Chief complaint: Weakness Stated complaint: WEAKNESS Time Seen by Provider: 12/24/19 01:45 History of Present Illness: HPI Narrative: Care assumed a change of shift. Went in to see the patient she is lying in bed just 2 L by nasal cannula oxygen at home which is her normal at home states she hurts from the top of her head to the tip of her toes. She cannot really isolate anything specific other than just she is very generally weak she did mention that she has been coughing but I did not witness any coughing at all while I was in the room and her chest x-ray was clear. Talking to her some more she is concerned about being able to manage her cares at home because her is about to return to work. When I suggested she may need to consider the halfway she was open to this idea. Associated symptoms: Denies chest pain, chills, dark stools, dysuria, fever(s), nausea or vomiting Review of Systems Const: Reports: fatigue and malaise; Denies: fever, chills, body aches or change in appetite ENMT: Denies: throat pain, ear pain, nasal discharge or nasal congestion Card: Denies: chest pain, edema, shortness of breath on exertion or shortness of breath when lying down Resp: Reports: non-productive cough; Denies: shortness of breath or productive cough GI: Denies: abdominal pain, nausea, vomiting, vomiting blood, coffee grounds in vomit, diarrhea, constipation, bloating, blood in stool or black tarry stool : Denies: flank pain, difficulty urinating, painful urination, urinary frequency or urinary urgency Skin/Breast: Denies: rash or itching PFSH ED PFSH: Medical History Anxiety and depression Cholecystectomy planned Chronic combined systolic and diastolic CHF (congestive heart failure) COPD (chronic obstructive pulmonary disease) Oxygen dependent, 2 L at baseline Encounter for long-term opiate analgesic use Hyperlipidemia Hypertension Hypothyroidism Left renal mass Liver cirrhosis Low back pain of over 3 months duration Morbid obesity Opioid contract exists Recurrent UTI Urgency incontinence Surgical History History of cardiac cath History of hysterectomy History of knee replacement History of thyroid surgery Family History Other CAD (coronary artery disease) Cancer Denies family history of Anesthesia complication Bleeding disorder Social History Smoking and tobacco status: former smoker Quit status (tobacco): has quit using tobacco Year quit tobacco: 2005 Second hand smoke exposure: No Alcohol intake: unknown Adopted: No Caregiver/support person: No Lives independently: No Household members: spouse Marital status: Current occupational status: retired History of recent travel: No Current gender identity: Female Physical Exam Const: GENERAL APPEARANCE: cooperative and comfortable ORIENTATION/CONSCIOUSNESS: Yes awake, Yes oriented to person, Yes oriented to place and Yes oriented to time HENMT: COMMON NORMALS: normocephalic, head/scalp atraumatic, hearing grossly normal bilaterally, moist oral mucous membranes and oropharynx normal HEAD & SCALP: normocephalic and atraumatic Eye: COMMON NORMALS: PERRL, EOMs intact bilaterally, conjunctivae normal and no scleral icterus CONJUNCTIVA: Yes conjunctivae normal PUPIL: Yes PERRL Neck/C-Spine: COMMON NORMALS: full ROM, no lymphadenopathy, supple and no JVD Lymph: LYMPHATIC: no lymphadenopathy noted and no lymphedema noted Resp: COMMON NORMALS: normal respiratory effort, no retractions, no use of accessory muscles and clear to auscultation bilaterally AUSCULTATION: clear to auscultation bilaterally Cardio: COMMON NORMALS: no JVD, regular rate, regular rhythm and no murmurs RATE: regular rate RHYTHM: regular rhythm GI: COMMON NORMALS: soft to palpation and no hepatosplenomegaly AUSCULTATION: Yes normoactive bowel sounds PALPATION: Yes soft, No tender, No guarding and Yes no hepatosplenomegaly Extremity: COMMON NORMALS: normal to inspection, normal capillary refill, no clubbing, cyanosis or edema, no calf tenderness and no pedal edema Neuro: SENSORIUM/ORIENTATION: Yes oriented to person, Yes oriented to place and Yes oriented to time Skin: COMMON NORMALS: no rashes or lesions noted GENERAL SKIN EXAM: no rashes or lesions noted Course Vital Signs: Vital signs: Vital Signs Temperature 98 F 12/25/19 04:00 Pulse Rate 82 12/25/19 04:00 Respiratory Rate 24 H 12/25/19 04:00 Blood Pressure 174/76 12/25/19 04:00 Pulse Oximetry 93 12/25/19 04:00 MDM - Weakness MDM Narrative: Medical decision making narrative: Patient does seem to be a little more awake and alert than when she was for Dr. Rubio initially. Was able to go through relatively good review of systems with her. She is very mildly hypokalemic and has a cystitis but no evidence clinically or radiographically of pyelonephritis. However she is unable to get up and get out of bed get around. We will go ahead and put her on observation for generalized weakness and likely will have to look to halfway level of care for her. Unable to get patient to ambulate. She is not were not able to make arrangements for halfway placement. I cannot safely send her home when she is not able to get up or out of bed. We will go ahead and admit her to the hospital for now on observation for generalized weakness and cystitis, discussed with Dr. Mendez. Lab Data: Labs: Lab Results 12/24/19 12/24/19 12/24/19 Range/Units 02:27 02:27 02:27 WBC 9.5 (4.0-10.0) 10^3/ uL RBC 3.65 L (4.1-5.3) 10^6/u L Hgb 11.2 L (11.5-15.3) g/dL Hct 34.9 L (37.0-47.0) % MCV 95.6 (81-99) fL MCH 30.7 (28.0-34.0) pg MCHC 32.1 (30.0-36.0) g/dL RDW 13.9 (12.1-15.1) % Plt Count 272 (130-400) 10^3/c mm MPV 9.2 (7.4-10.4) fL Neut % (Auto) 74.3 % Lymph % (Auto) 15.7 % [place] % (Auto) 9.2 % Eos % (Auto) 0.0 % Baso % (Auto) 0.3 % Neut # (Auto) 7.0 (1.8-7.7) 10^3/u L Lymph # (Auto) 1.5 (0.8-4.8) 10^3/u L [place] # (Auto) 0.9 (0.2-0.9) 10^3/u L Eos # (Auto) 0.0 (0.0-0.8) 10^3/u L Baso # (Auto) 0.0 (0.0-0.1) 10^3/u L Nucleated RBC % (a uto) 0 % Nucleated RBCs # 0.0 /100WBC Specimen Type Sample Site ABG pH (7.35-7.45) ABG pCO2 (35-45) mmHg ABG pO2 (80.0-100.0) mmH g ABG HCO3 (22-26) mmol/L ABG Base Excess (-2.0-2.0) mmol/ L Memo Test Hematocrit (37-47) % O2 Delivery Device O2 Liters/Min % [employer] ID Sodium 140 (136-145) mmol/L Potassium 3.3 L (3.5-5.1) mmol/L Chloride 94 L (98-107) mmol/L Carbon Dioxide 34 H (22-29) mmol/L Anion Gap 15.3 (5-19) BUN 25 H (8-23) mg/dL Creatinine 1.0 H (0.5-0.9) mg/dL Glucose 247 H (65-115) mg/dL Calculated Osmolal ity 295 (285-295) mOsm/k g Lactic Acid 1.9 (0.5-2.2) mmol/L Calcium 11.0 H (8.5-10.5) mg/dL Magnesium 1.9 (1.7-2.3) mg/dL Total Bilirubin 0.3 (0.15-1.2) mg/dL AST 36 H (0-32) U/L ALT 25 (0-33) U/L Alkaline Phosphata se 114 H (35-105) IU/L Ammonia (11-51) umol/L Creatine Kinase 27 (26-192) U/L Troponin I 6 Hour (0-10) ng/mL Troponin I Hi Sens Del (0-12) ng/L Troponin T Baselin e (0-10) ng/mL Troponin T 120 Min [place] (0-10) ng/mL Delta Troponin T (0-10) ABS# Total Protein 7.7 (6.6-8.7) g/dL Albumin 3.8 (3.5-5.2) g/dL Globulin 3.9 (1.3-4.6) g/dL Lipase 24 (13-60) U/L TSH (0.27-4.20) uIU/ mL Urine Color (Yellow) Urine Appearance (CLEAR) Urine pH (5-7) Ur Specific Gravit y (1.005-1.030) Urine Protein (Negative) Urine Glucose (UA) (Normal) Urine Ketones (Negative) Urine Blood (Negative) Urine Nitrate (Negative) Urine Bilirubin (NEGATIVE) Urine Urobilinogen (Negative) mg/dL Ur Leukocyte Dorota ase (Negative) Urine RBC (0-2) /hpf Urine WBC (0-5) /hpf Ur Squamous Epith Cells (0-5) Urine Bacteria (NONE) Ethyl Alcohol < 10 (0-10) mg/dL Serum Ketones (Negative) 12/24/19 12/24/19 12/24/19 Range/Units 02:27 02:27 02:27 WBC (4.0-10.0) 10^3/ uL RBC (4.1-5.3) 10^6/u L Hgb (11.5-15.3) g/dL Hct (37.0-47.0) % MCV (81-99) fL MCH (28.0-34.0) pg MCHC (30.0-36.0) g/dL RDW (12.1-15.1) % Plt Count (130-400) 10^3/c mm MPV (7.4-10.4) fL Neut % (Auto) % Lymph % (Auto) % [place] % (Auto) % Eos % (Auto) % Baso % (Auto) % Neut # (Auto) (1.8-7.7) 10^3/u L Lymph # (Auto) (0.8-4.8) 10^3/u L [place] # (Auto) (0.2-0.9) 10^3/u L Eos # (Auto) (0.0-0.8) 10^3/u L Baso # (Auto) (0.0-0.1) 10^3/u L Nucleated RBC % (a uto) % Nucleated RBCs # /100WBC Specimen Type Sample Site ABG pH (7.35-7.45) ABG pCO2 (35-45) mmHg ABG pO2 (80.0-100.0) mmH g ABG HCO3 (22-26) mmol/L ABG Base Excess (-2.0-2.0) mmol/ L Memo Test Hematocrit (37-47) % O2 Delivery Device O2 Liters/Min % [employer] ID Sodium (136-145) mmol/L Potassium (3.5-5.1) mmol/L Chloride (98-107) mmol/L Carbon Dioxide (22-29) mmol/L Anion Gap (5-19) BUN (8-23) mg/dL Creatinine (0.5-0.9) mg/dL Glucose (65-115) mg/dL Calculated Osmolal ity (285-295) mOsm/k g Lactic Acid (0.5-2.2) mmol/L Calcium (8.5-10.5) mg/dL Magnesium (1.7-2.3) mg/dL Total Bilirubin (0.15-1.2) mg/dL AST (0-32) U/L ALT (0-33) U/L Alkaline Phosphata se (35-105) IU/L Ammonia 19 (11-51) umol/L Creatine Kinase (26-192) U/L Troponin I 6 Hour (0-10) ng/mL Troponin I Hi Sens Del (0-12) ng/L Troponin T Baselin e 27 H (0-10) ng/mL Troponin T 120 Min [place] (0-10) ng/mL Delta Troponin T (0-10) ABS# Total Protein (6.6-8.7) g/dL Albumin (3.5-5.2) g/dL Globulin (1.3-4.6) g/dL Lipase (13-60) U/L TSH (0.27-4.20) uIU/ mL Urine Color (Yellow) Urine Appearance (CLEAR) Urine pH (5-7) Ur Specific Gravit y (1.005-1.030) Urine Protein (Negative) Urine Glucose (UA) (Normal) Urine Ketones (Negative) Urine Blood (Negative) Urine Nitrate (Negative) Urine Bilirubin (NEGATIVE) Urine Urobilinogen (Negative) mg/dL Ur Leukocyte Dorota ase (Negative) Urine RBC (0-2) /hpf Urine WBC (0-5) /hpf Ur Squamous Epith Cells (0-5) Urine Bacteria (NONE) Ethyl Alcohol (0-10) mg/dL Serum Ketones Negative (Negative) 12/24/19 12/24/19 12/24/19 Range/Units 02:50 04:40 06:02 WBC (4.0-10.0) 10^3/ uL RBC (4.1-5.3) 10^6/u L Hgb (11.5-15.3) g/dL Hct (37.0-47.0) % MCV (81-99) fL MCH (28.0-34.0) pg MCHC (30.0-36.0) g/dL RDW (12.1-15.1) % Plt Count (130-400) 10^3/c mm MPV (7.4-10.4) fL Neut % (Auto) % Lymph % (Auto) % [place] % (Auto) % Eos % (Auto) % Baso % (Auto) % Neut # (Auto) (1.8-7.7) 10^3/u L Lymph # (Auto) (0.8-4.8) 10^3/u L [place] # (Auto) (0.2-0.9) 10^3/u L Eos # (Auto) (0.0-0.8) 10^3/u L Baso # (Auto) (0.0-0.1) 10^3/u L Nucleated RBC % (a uto) % Nucleated RBCs # /100WBC Specimen Type Arterial Sample Site Radial, right ABG pH 7.47 H (7.35-7.45) ABG pCO2 49.6 H (35-45) mmHg ABG pO2 51.9 L (80.0-100.0) mmH g ABG HCO3 36.1 H (22-26) mmol/L ABG Base Excess 10.9 H (-2.0-2.0) mmol/ L Memo Test Pos Hematocrit 34.3 L (37-47) % O2 Delivery Device Nc O2 Liters/Min 2.0 % [employer] ID [email or web address] Sodium (136-145) mmol/L Potassium (3.5-5.1) mmol/L Chloride (98-107) mmol/L Carbon Dioxide (22-29) mmol/L Anion Gap (5-19) BUN (8-23) mg/dL Creatinine (0.5-0.9) mg/dL Glucose (65-115) mg/dL Calculated Osmolal ity (285-295) mOsm/k g Lactic Acid (0.5-2.2) mmol/L Calcium (8.5-10.5) mg/dL Magnesium (1.7-2.3) mg/dL Total Bilirubin (0.15-1.2) mg/dL AST (0-32) U/L ALT (0-33) U/L Alkaline Phosphata se (35-105) IU/L Ammonia 19 (11-51) umol/L Creatine Kinase (26-192) U/L Troponin I 6 Hour (0-10) ng/mL Troponin I Hi Sens Del (0-12) ng/L Troponin T Baselin e (0-10) ng/mL Troponin T 120 Min [place] 23.85 H (0-10) ng/mL Delta Troponin T -3.15 L (0-10) ABS# Total Protein (6.6-8.7) g/dL Albumin (3.5-5.2) g/dL Globulin (1.3-4.6) g/dL Lipase (13-60) U/L TSH (0.27-4.20) uIU/ mL Urine Color (Yellow) Urine Appearance (CLEAR) Urine pH (5-7) Ur Specific Gravit y (1.005-1.030) Urine Protein (Negative) Urine Glucose (UA) (Normal) Urine Ketones (Negative) Urine Blood (Negative) Urine Nitrate (Negative) Urine Bilirubin (NEGATIVE) Urine Urobilinogen (Negative) mg/dL Ur Leukocyte Dorota ase (Negative) Urine RBC (0-2) /hpf Urine WBC (0-5) /hpf Ur Squamous Epith Cells (0-5) Urine Bacteria (NONE) Ethyl Alcohol (0-10) mg/dL Serum Ketones (Negative) 12/24/19 12/24/19 12/24/19 Range/Units 06:20 08:24 08:24 WBC (4.0-10.0) 10^3/ uL RBC (4.1-5.3) 10^6/u L Hgb (11.5-15.3) g/dL Hct (37.0-47.0) % MCV (81-99) fL MCH (28.0-34.0) pg MCHC (30.0-36.0) g/dL RDW (12.1-15.1) % Plt Count (130-400) 10^3/c mm MPV (7.4-10.4) fL Neut % (Auto) % Lymph % (Auto) % [place] % (Auto) % Eos % (Auto) % Baso % (Auto) % Neut # (Auto) (1.8-7.7) 10^3/u L Lymph # (Auto) (0.8-4.8) 10^3/u L [place] # (Auto) (0.2-0.9) 10^3/u L Eos # (Auto) (0.0-0.8) 10^3/u L Baso # (Auto) (0.0-0.1) 10^3/u L Nucleated RBC % (a uto) % Nucleated RBCs # /100WBC Specimen Type Sample Site ABG pH (7.35-7.45) ABG pCO2 (35-45) mmHg ABG pO2 (80.0-100.0) mmH g ABG HCO3 (22-26) mmol/L ABG Base Excess (-2.0-2.0) mmol/ L Memo Test Hematocrit (37-47) % O2 Delivery Device O2 Liters/Min % [employer] ID Sodium (136-145) mmol/L Potassium (3.5-5.1) mmol/L Chloride (98-107) mmol/L Carbon Dioxide (22-29) mmol/L Anion Gap (5-19) BUN (8-23) mg/dL Creatinine (0.5-0.9) mg/dL Glucose (65-115) mg/dL Calculated Osmolal ity (285-295) mOsm/k g Lactic Acid (0.5-2.2) mmol/L Calcium (8.5-10.5) mg/dL Magnesium (1.7-2.3) mg/dL Total Bilirubin (0.15-1.2) mg/dL AST (0-32) U/L ALT (0-33) U/L Alkaline Phosphata se (35-105) IU/L Ammonia (11-51) umol/L Creatine Kinase (26-192) U/L Troponin I 6 Hour 22.75 H (0-10) ng/mL Troponin I Hi Sens Del -4.25 L (0-12) ng/L Troponin T Baselin e (0-10) ng/mL Troponin T 120 Min [place] (0-10) ng/mL Delta Troponin T (0-10) ABS# Total Protein (6.6-8.7) g/dL Albumin (3.5-5.2) g/dL Globulin (1.3-4.6) g/dL Lipase (13-60) U/L TSH 0.33 (0.27-4.20) uIU/ mL Urine Color Yellow (Yellow) Urine Appearance Cloudy (CLEAR) Urine pH 5.0 (5-7) Ur Specific Gravit y 1.015 (1.005-1.030) Urine Protein 3+ H (Negative) Urine Glucose (UA) Norm (Normal) Urine Ketones 1+ H (Negative) Urine Blood Neg (Negative) Urine Nitrate Negative (Negative) Urine Bilirubin Neg (NEGATIVE) Urine Urobilinogen Norm (Negative) mg/dL Ur Leukocyte Dorota ase 1+ H (Negative) Urine RBC None (0-2) /hpf Urine WBC 40-55 H (0-5) /hpf Ur Squamous Epith Cells 0-4 H (0-5) Urine Bacteria 4+ H (NONE) Ethyl Alcohol (0-10) mg/dL Serum Ketones (Negative) Discharge Plan Discharge Patient Disposition: Placed in Observation Admit Provider: Iveth Mendez Clinical Impression: Generalized weakness, Cystitis Condition: Stable Referrals: Jada Gandhi MD [Primary Care Provider] - Discharge Date/Time: 12/24/19 11:46 Sign Out Sign Out Data: Patient Sign Out occurred on 12/24/19 at 07:00. Patient's care was discussed, and care was transferred from to Kenrick Treviño DO. Coding Level of Care Code ED Multicraft Operator for Chg Fwd Exam Comprehensive
[2019-12-24] MEDS: iodixanol 320 mg/mL 100mL Btl IV (03:58)
--- NOTE | 2019-12-24 03:58 | ECG_ITS ---
Measurements Intervals [place] Rate: 84 P: 41 SC: 212 QRS: -66 QRSD: 151 T: 30 QT: 461 QTc: 548 SINUS RHYTHM WITH FIRST DEGREE AV BLOCK RIGHT BUNDLE BRANCH BLOCK LEFT ANTERIOR FASCICULAR BLOCK VOLTAGE CRITERIA FOR LVH Compared to ECG 10/12/2019 14:01:45 First degree AV block now present ST (T wave) deviation no longer present Myocardial infarct finding no longer present Electronically Signed On 12-24-2019 19:46:19 CDT by Lucia Oakley M.D. [email or web address]
[2019-12-24 05:09] LABS: Troponin 5 2HR 23.85 ng/mL (0-10)
[2019-12-24 05:12] LABS: Troponin 5 2HR Delta -3.15 ABS# (0-10)
[2019-12-24 06:39] LABS: Ammonia 19 umol/L (11-51)
[2019-12-24 06:51] LABS: Bacteria Urine 4+; Bilirubin Urine Neg (NEGATIVE); Blood Urine Neg (Negative); Glucose Urine UA Norm (Normal); Ketones Urine 1+ (Negative); Leukocyte Esterase Urine 1+ (Negative); Nitrate Urine Negative (Negative); Protein Urine 3+ (Negative); Specific Gravity, Urine 1.015 (1.005-1.030); Squamous Epithelial Cell Urine 0-4 (0-5); Urine Appearance Cloudy (CLEAR); Urine Color Yellow (Yellow); Urobilinogen Urine Norm (Negative); WBC Urine 40-55 /hpf (0-5)
[2019-12-24 06:52] LABS: Add Urine Culture? Yes
--- NOTE | 2019-12-24 08:03 | PC.NURSE ---
pt sat up and eating breakfast at this time
[2019-12-24 08:52] LABS: Troponin 5 6HR 22.75 ng/mL (0-10)
[2019-12-24 08:57] LABS: Troponin 5 6HR Delta -4.25 ng/L (0-12)
--- NOTE | 2019-12-24 09:00 | PC.NURSE ---
pt asking ER nurse you have to feed me . Nurse explained to pt that she is very capable of feeding herself. Pt ate a small amount of her breakfast
--- NOTE | 2019-12-24 11:41 | P.HP_ITS ---
Providers/Chief Complaint Primary Care Provider: Jada Gandhi MD Chief Complaint: CYSTITIS, GENERAL WEAKNESS History of Present Illness Myesha Parker is a 69 year old female with a past medical history of hypertension, CHF, diabetes and obesity that presented to the emergency department today for generalized weakness. She reported that she has been having worsening symptoms over the past 3 to 4 days. She states that she has been unable to eat. Has no energy to feed herself. She stated that she has not been able to keep down any food or liquids due to this. She stated that she has been sleepy and reports feeling like she could pass out. Patient denies any loss of consciousness neck, no trauma, no head trauma, no dizziness or vision changes. Patient denies any chest pain. She denies any recent illness, no fevers or chills. Patient was seen and evaluated in the emergency department noted to have concern for generalized weakness and placed on observation. It was initially discussed that patient would likely require half-way placement, this was discussed with patient's and with case management. Patient was noted to have urinary tract infection. Review of Systems Const: Reports: fatigue; Denies: fever or chills Eyes: Denies: change in vision ENMT: Denies: nasal congestion Card: Denies: chest pain, palpitations or edema Resp: Denies: shortness of breath, productive cough or coughing up blood GI: Reports: constipation; Denies: abdominal pain, vomiting, diarrhea, blood in stool or black tarry stool : Denies: painful urination or blood in urine Musc: Reports: other (reported generalized weakness ); Denies: extremity pain or muscle cramps Skin/Breast: Denies: rash or new lesion Neuro: Denies: headache, dizziness, confusion or slurred speech Psych: Denies: anxiety or depression Endo: Denies: excessive urination or hot flashes [place]/Lymph: Denies: easy bruising or easy bleeding Medications/Allergies Home Medications Medication Instructions Recorded Confirmed Last Taken Type albuterol sulfate 90 mcg/actuation 2 puff INHALATION Q6H PRN 09/09/19 12/24/19 Unknown History aerosol inhaler aspirin 325 mg tablet 325 mg PO BEDTIME tab 09/09/19 12/24/19 10/11/19 History furosemide 20 mg tablet 40 mg PO EVERY OTHER DAY tab 09/09/19 12/24/19 Unknown History insulin human U-100 NPH-regulr See Rx Instructions .ROUTE 09/09/19 12/24/19 10/11/19 History 70-30 mix 100 unit/mL subcutaneous .COMPLEX ml susp levothyroxine 175 mcg capsule 175 mcg PO DAILY cap 09/09/19 12/24/19 10/12/19 History metoprolol tartrate 50 mg tablet 100 mg PO BID tab 09/09/19 12/24/19 10/11/19 History pantoprazole 40 mg tablet,delayed 40 mg PO BID tab 09/09/19 12/24/19 10/12/19 History release potassium chloride 20 mEq 20 meq PO BID 09/09/19 12/24/19 10/11/19 History tablet,extended release digoxin 125 mcg (0.125 mg) tablet 125 mcg PO DAILY 10/02/19 12/24/19 10/11/19 History ergocalciferol (vitamin D2) 50,000 50,000 unit PO Q7D 10/02/19 12/24/19 Unknown History unit tablet ferrous gluconate 324 mg (37.5 mg 324 mg PO DAILY 10/02/19 12/24/19 10/11/19 History iron) tablet garlic 1,000 mg capsule 1,000 mg PO DAILY 10/02/19 12/24/19 10/11/19 History teriparatide 20 mcg/dose (600 20 mcg SUBCUT DAILY 10/02/19 12/24/19 Unknown History mcg/2.4 mL) subcutaneous pen injector Liver Aid 2 tab PO DAILY 10/12/19 12/24/19 Unknown History acetaminophen [Arthritis Pain 650 mg PO PRN 10/12/19 12/24/19 Unknown History Reliever] albuterol sulfate 2.5 mg INHALATION Q4H PRN 10/12/19 12/24/19 Unknown History atorvastatin [Lipitor] 40 mg PO DAILY 10/12/19 12/24/19 10/11/19 History black cohosh 80 mg PO DAILY 10/12/19 12/24/19 Unknown History carica papaya [Papaya Enzyme] 4 tab PO PRN 10/12/19 12/24/19 Unknown History chlorpheniramine maleate 4 mg PO TID 10/12/19 12/24/19 Unknown History [ChlorTabs] cholecalciferol (vitamin D3) 1,000 unit PO DAILY 10/12/19 12/24/19 10/11/19 History [Vitamin D3] cranberry 2 tab PO QAM 10/12/19 12/24/19 Unknown History cyanocobalamin (vitamin B-12) 1,000 mcg PO DAILY 10/12/19 12/24/19 10/11/19 History [Vitamin B-12] diphenhydramine HCl [Benadryl] 25 mg PO PRN 10/12/19 12/24/19 Unknown History docusate sodium [Stool Softener] 100 mg PO BID PRN 10/12/19 12/24/19 Unknown History loperamide [Anti-Diarrheal 2 - 4 mg PO DIRECTED 10/12/19 12/24/19 10/11/19 History (loperamide)] loratadine 20 mg PO DAILY 10/12/19 12/24/19 Unknown History magnesium L-lactate [Magtab] 84 mg PO BID 10/12/19 12/24/19 10/11/19 History methylsulfonylmethane [MSM] 1,000 mg PO BID 10/12/19 12/24/19 Unknown History nitroglycerin [Nitrostat] 0.4 mg SUBLINGUAL Q5M PRN 10/12/19 12/24/19 Unknown History omega 1-ogz-tbi-fish oil [Ultra 2 cap PO DAILY 10/12/19 12/24/19 10/11/19 History Florala-3] ondansetron HCl [Zofran] 4 mg PO DAILY PRN 10/12/19 12/24/19 Unknown History pantothenic acid (vit B5) 500 mg PO DAILY 10/12/19 12/24/19 10/11/19 History pyridoxine (vitamin B6) [Vitamin 100 mg PO DAILY 10/12/19 12/24/19 Unknown History B-6] riboflavin (vitamin B2) [Vitamin 100 mg PO DAILY 10/12/19 12/24/19 Unknown History B-2] vitamin E 400 unit PO DAILY 10/12/19 12/24/19 Unknown History zinc 50 mg PO DAILY 10/12/19 12/24/19 Unknown History aripiprazole 5 mg tablet 5 mg PO QAM #30 tab 11/03/19 12/24/19 Unknown Rx buspirone 10 mg tablet 10 mg PO BID #60 tab 11/03/19 12/24/19 Unknown Rx duloxetine 30 mg capsule,delayed 30 mg PO QAM #30 cap 11/03/19 12/24/19 Unknown Rx release duloxetine 60 mg capsule,delayed 60 mg PO QAM #30 cap 11/03/19 12/24/19 Unknown Rx release amlodipine 10 mg tablet 10 mg PO DAILY #90 tab 11/06/19 12/24/19 Unknown Rx hydrocodone 5 mg-acetaminophen 325 1 tab PO Q6H PRN 30 Days #120 tab 11/27/19 12/24/19 Unknown Rx mg tablet tizanidine 4 mg tablet 4 mg PO TID PRN #90 tab 11/27/19 12/24/19 Unknown Rx tramadol 50 mg tablet 100 mg PO QID PRN 30 Days #240 tab 11/27/19 12/24/19 Unknown Rx hydralazine 25 mg tablet 25 mg PO TID #270 tab 12/22/19 12/24/19 Unknown Rx Allergies Allergy/AdvReac Type Severity Reaction Status Date / Time adhesive tape Allergy rash Verified 11/27/19 08:43 cinnamon Allergy sinus Verified 11/27/19 08:43 codeine Allergy unknown Verified 11/27/19 08:43 cedar Allergy sinus Uncoded 11/27/19 08:43 pine Allergy sinus Uncoded 11/27/19 08:43 PFSH Acute PFSH: Medical History Anxiety and depression Cholecystectomy planned Chronic combined systolic and diastolic CHF (congestive heart failure) COPD (chronic obstructive pulmonary disease) Oxygen dependent, 2 L at baseline Encounter for long-term opiate analgesic use Hyperlipidemia Hypertension Hypothyroidism Left renal mass Liver cirrhosis Low back pain of over 3 months duration Morbid obesity Opioid contract exists Recurrent UTI Urgency incontinence Surgical History History of cardiac cath History of hysterectomy History of knee replacement History of thyroid surgery Family History Other CAD (coronary artery disease) Cancer Denies family history of Anesthesia complication Bleeding disorder Social History Smoking and tobacco status: former smoker Quit status (tobacco): has quit using tobacco Year quit tobacco: 2005 Second hand smoke exposure: No Alcohol intake: unknown Adopted: No Caregiver/support person: No Lives independently: No Household members: spouse Marital status: Current occupational status: retired History of recent travel: No Current gender identity: Female Vitals/I&O/Wt Last Vital Signs Temp 98.5 F 12/24/19 01:50 Pulse 111 H 12/24/19 09:56 Resp 20 H 12/24/19 09:56 BP 193/74 12/24/19 09:56 Pulse Ox 95 12/24/19 08:00 12/23/19 12/24/19 12/24/19 22:59 06:59 14:59 Intake Total 230.833 / 230.833 Balance 230.833 / 230.833 Weight last 48 hrs Weight 108.862 kg Physical Exam Const: COMMON NORMALS: oriented x3 and alert GENERAL APPEARANCE: cooperative ORIENTATION/CONSCIOUSNESS: Yes awake, Yes oriented to person, Yes oriented to place and Yes oriented to time HENMT: COMMON NORMALS: normocephalic and head/scalp atraumatic HEAD & SCALP: normocephalic and atraumatic Eye: COMMON NORMALS: PERRL PUPIL: Yes PERRL Neck/C-Spine: COMMON NORMALS: supple GENERAL: Yes normal visual inspection Resp: COMMON NORMALS: normal respiratory effort and clear to auscultation bilaterally EFFORT & INSPECTION: Yes able to speak in complete sentences AUSCULTATION: clear to auscultation bilaterally, no rhonchi and no wheezes OTHER: Oxygen by nasal cannula in place, diminished breath sounds bilaterally with prolonged expiratory phase Cardio: COMMON NORMALS: regular rate and regular rhythm RATE: regular rate RHYTHM: regular rhythm HEART SOUNDS: murmur systolic GI: COMMON NORMALS: soft to palpation and non-tender INSPECTION: No abd ominal distension AUSCULTATION: Yes normoactive bowel sounds PALPATION: Yes soft OTHER: Obese : COMMON NORMALS: Yes no CVA tenderness BLADDER/KIDNEY EXAM: Yes no CVA tenderness Back/Pelvis: COMMON NORMALS: no CVA tenderness Extremity: COMMON NORMALS: no clubbing, cyanosis or edema and no calf tenderness Neuro: COMMON NORMALS: oriented x3, CN's II-XII intact bilaterally, moves all extremities and no focal motor deficits SENSORIUM/ORIENTATION: Yes alert, Yes oriented to person, Yes oriented to place and Yes oriented to time SPEECH: speech normal Psych: COMMON NORMALS: mental status grossly normal Skin: COMMON NORMALS: no rashes or lesions noted GENERAL SKIN EXAM: no rashes or lesions noted Urinary Catheter Management^: Manzanares: Cath Placed During This Visit: yes Urinary Catheter Date of Insertion: 12/24/19 Urinary Catheter Time of Insertion: 06:20 Data : 12/24/19 02:27 12/24/19 02:27 CXR: I personally reviewed and interpreted this imaging study as follows: Radiologist's impression: IMPRESSION: Mild chronic lung disease. No acute pneumonia. CT Head: I personally reviewed and interpreted this imaging study as follows: Radiologist's impression: IMPRESSION: 1. No acute intracranial hemorrhage or mass effect. 2. Changes of microvascular disease. 3. No definite acute infarct by CT, see above. 4. Other findings discussed above. CT Abd/Pel: I personally reviewed and interpreted this imaging study as follows: Radiologist's impression: IMPRESSION: 1. Nodular contour of the liver. 2. Small gastrohepatic ligament lymph nodes with minor soft tissue stranding, congestion or motion blur celiac region. 3. Multiple low attenuating areas within the kidneys probably reflecting cyst are of too small for definitive characterization.No further workup is recommended. 4. Bilateral intrarenal nonobstructive calculi. A&P Assessment and plan (1) Generalized weakness: Patient reports generalized weakness and decreased ability to perform daily activities Placed on observation Believed to be multifactorial as patient is on some sedating medications but also has gradual decline in strength CT scan of the head performed and noted as above, no acute intracranial abnormalities Patient does have urinary tract infection, in the setting of urine Demetrio tract infections recurrently. Will treat with oral antibiotics Physical therapy and Occupational Therapy ordered Patient and are in agreement to retirement facility placement Status: Acute (2) Cystitis: Cipro 500 mg twice daily Status: Acute (3) Hypertension: Restart home amlodipine 10 mg daily now Restart hydralazine Continue on digoxin and metoprolol Status: Acute (4) Hypothyroidism: We will continue on home levothyroxine Check TSH and adjust dosing accordingly Status: Acute (5) Morbid obesity: Status: Acute (6) Anxiety and depression: Patient is on Cymbalta 90 mg daily, Abilify, BuSpar Status: Acute (7) Chronic combined systolic and diastolic CHF (congestive heart failure): Appears to be euvolemic at this time Continue on metoprolol, Lasix every other day We will check echocardiogram due to concern for systolic murmur Status: Acute (8) COPD (chronic obstructive pulmonary disease): Without acute exacerbation, patient is on her home 2 L of oxygen by nasal cannula, continue with home breathing treatments Status: Acute Additional A&P Information Hypercalcemia in the setting of dehydration that is mild. Will recheck in the morning. Patient is on some medications that could be contributing to this. Hypokalemia: Given potassium replacement while in the ED, will continue to monitor closely Chronic kidney disease, creatinine appears to be at baseline at this time Diabetes mellitus type 2, due to her decreased oral intake will decrease her home insulin requirements some at this time Chronic pain on daily opioids: Due to generalized weakness and reported sleepiness will hold sedating medications at this time DVT prophylaxis: Lovenox Diet: Cardiac, carbohydrate consistent CODE STATUS: Full code Attestations Medical Necessity Statement*: Observation due to acute cystitis and generalize d weakness. Expected stay less than 2 midnights Coding Level of Care Code Acute Associate Director Of Biostatistics for Chg Fwd Diagnoses Generalized weakness R53.1 Cystitis N30.90 Hypertension I10 Hypothyroidism E03.9 Morbid obesity E66.01 Anxiety and depression F41.9; F32.9 Chronic combined systolic and diastolic CHF (congestive heart failure) I50.42 COPD (chronic obstructive pulmonary disease) J44.9
[2019-12-24 13:09] LABS: Thyroid Stimulating Hormone 0.33 uIU/mL (0.27-4.20)
--- NOTE | 2019-12-24 13:49 | DCPLANNER ---
fitness services manager was asked to start the process of care home placement. fitness services manager spoke with patients , Gerardo at phone number [phone], about possible care home placement for patient. fitness services manager spoke with and got choices of the different nursing homes that would to see if would accept patient. Patients picked 1 thru 3 for choices. fitness services manager had that go with patients chart to the floor, and had it scanned into chart. fitness services manager did speak with patients about the patient participating in therapy and if patient did not than patient may be private pay to the care home. Patients understood this and if insurance would not pay for a care home stay and if it would be private pay, then patient would have to return home.
[2019-12-24] MEDS: digoxin 125 mcg Tablet PO (13:51)
[2019-12-24] MEDS: enoxaparin 40 mg/0.4 mL Syringe SUBCUT (13:52)
[2019-12-24] MEDS: levothyroxine 125 mcg Tablet PO (13:52)
[2019-12-24] MEDS: amlodipine 10 mg Tablet PO (13:52)
[2019-12-24] MEDS: hyDRALAzine 25 mg Tablet PO ×2 (13:52→21:51)
[2019-12-24] MEDS: sodium chloride 0.9% 1,000 ML 30 ML IV (13:53)
--- NOTE | 2019-12-24 14:43 | PC.OT ---
PER PT, PATIENT UNABLE TO MAINTAIN ALERTNESS FOR EVALUATION. HOLD TODAY.
[2019-12-24 16:26] LABS: Glucose Point of Care 421 mg/dL (70-110)
[2019-12-24] MEDS: metoprolol tartrate 1 mg/1 mL SDV 5 mL 5 MG IV (17:06)
[2019-12-24] MEDS: ciprofloxacin 500 mg Tablet PO (17:06)
[2019-12-24] MEDS: BuSPIRONE 10 mg Tablet PO (17:07)
[2019-12-24] MEDS: metoprolol tartrate 50 mg Tablet 100 MG PO (17:07)
[2019-12-24] MEDS: pantoprazole DR 40 mg Tablet PO (17:07)
[2019-12-24] MEDS: magnesium lactate 84 mg Tablet PO (17:07)
[2019-12-24 21:48] LABS: Glucose Point of Care 304 mg/dL (70-110)
[2019-12-24] MEDS: aspirin 325 mg Tablet PO (21:51)
[2019-12-25] VITALS (9 sets, daily range): BP systolic 139–177; BP diastolic 69–83; PULSE 74–99; RESP 18–24; TEMP 36.6–36.9; O2SAT 92–98
[2019-12-25] MEDS: HYDROcodone-acetaminophen 5-325 mg Tablet 1 TAB PO ×3 (00:05→22:15)
--- NOTE | 2019-12-25 00:39 | PC.NURSE ---
NOVOLIN NON FORMULARY NOVOLIN DISCONTINUED PER DR YEAGER'S ORDERS.
[2019-12-25 05:19] LABS: Basophils # 0.1 10^3/uL (0.0-0.1); Basophils % 0.5 %; Eosinophils % 0.1 %; Hematocrit 34.6 % (37.0-47.0); Hemoglobin 11.3 g/dL (11.5-15.3); Lymphocytes # 2.1 10^3/uL (0.8-4.8); Lymphocytes % 22.3 %; Mean Corpuscular HGB Conc 32.7 g/dL (30.0-36.0); Mean Corpuscular Hemoglobin 31.6 pg (28.0-34.0); Mean Corpuscular Volume 96.6 fL (81-99); Mean Platelet Volume 9.4 fL (7.4-10.4); Monocytes # 1.1 10^3/uL (0.2-0.9); Monocytes % 11.3 %; Neutrophils # 6.1 10^3/uL (1.8-7.7); Neutrophils % 65.2 %; Nucleated Red Blood Cells % 0 %; Platelet Count 231 10^3/cmm (130-400); Red Blood Count 3.58 10^6/uL (4.1-5.3); Red Cell Distribution Width 14.1 % (12.1-15.1); White Blood Count 9.3 10^3/uL (4.0-10.0)
[2019-12-25 05:39] LABS: Anion Gap 15.2 (5-19); Blood Urea Nitrogen 24 mg/dL (8-23); Carbon Dioxide 32 mmol/L (22-29); Chloride 97 mmol/L (98-107); Glucose 278 mg/dL (65-115); Osmolality Calculated 299 mOsm/kg (285-295); Potassium 3.2 mmol/L (3.5-5.1); Sodium 141 mmol/L (136-145)
[2019-12-25] MEDS: duloxetine 60 mg Capsule PO (05:54)
[2019-12-25] MEDS: duloxetine 30 mg Capsule PO (05:54)
[2019-12-25] MEDS: ARIPiprazole 10 mg Tablet 5 MG PO (05:54)
--- NOTE | 2019-12-25 07:00 | USCV_ITS ---
Myesha Parker Age: 69 Gender: F : 1950 Exam Date: 12/25/2019 13:18 Ordering Phys: Iveth Mendez DO Technologist: Constance Rubin Exam Location: [facility] – [place] Indication: HISTORY OF AFIB WEAKNESS AND SYSTOLIC MURMUR BP: / HR: 79 Rhythm: Sinus Technical Quality: Adequate MEASUREMENTS (Male / Female) Normal Values 2D ECHO LV Diastolic Diameter PLAX 3.4 cm 4.2 - 5.9 / 3.9 - 5.3 cm LV Systolic Diameter PLAX 2.3 cm LV Chamber Size 2.9 cm IVS Diastolic Thickness 2.0 cm 0.6 - 1.0 / 0.6 - 0.9 cm IVS Systolic Thickness 2.1 cm LVPW Diastolic Thickness 1.6 cm 0.6 - 1.0 / 0.6 - 0.9 cm LVPW Systolic Thickness 2.3 cm RV Chamber Size 2.7 cm LVOT Diameter 2.0 cm LV Ejection Fraction 2D Teich 61.0 % LV Ejection Fraction MOD 2C 48.3 % LV Ejection Fraction 2C AL 54.2 % LA Diameter 3.2 cm LA Width 2.8 cm LA Height 4.9 cm RA Width 3.9 cm RA Height 4.6 cm Aorta at Sinotubular Diameter 3.0 cm M-MODE LV Diastolic Diameter MM 4.4 cm 4.2 - 5.9 / 3.9 - 5.3 cm LV Systolic Diameter MM 3.2 cm LV Ejection Fraction MM Teich 55.3 % IVS Diastolic Thickness MM 1.6 cm 0.6 - 1.0 / 0.6 - 0.9 cm IVS Systolic Thickness MM 1.8 cm LVPW Diastolic Thickness MM 1.6 cm 0.6 - 1.0 / 0.6 - 0.9 cm LVPW Systolic Thickness MM 1.8 cm RV Diastolic Diameter MM 2.1 cm Aortic Annulus Diameter 3.9 cm LA Ao Ratio MM 0.8 MV E Point Septal Separation 0.3 cm DOPPLER AV Peak Velocity 224.0 cm/s LVOT Peak Velocity 114.0 cm/s AV Area Cont Eq vti 1.9 cm squared AV Area Cont Eq pk 1.6 cm squared MV Area PHT 3.9 cm squared Mitral E to A Ratio 0.8 MV E' Velocity 13.0 cm/s Mitral E to MV E' Ratio 8.1 Mitral E to LV E' Lateral Ratio 7.6 Mitral E to LV E' Septal Ratio 8.7 TR Peak Velocity 206.7 cm/s TR Peak Gradient 17.1 mmHg TR Mean Velocity 145.4 cm/s TR Mean Gradient 10.2 mmHg TR Velocity Time Integral 52.1 cm TV Peak E Velocity 68.0 cm/s Right Atrial Pressure 3.0 mmHg Pulmonary Artery Systolic Pressu 20.1 mmHg PV Peak Velocity 123.0 cm/s RV Acceleration Time 0.1 s RV Ejection Time 0.3 s RV AcT/ET 0.4 FINDINGS Left Ventricle Normal left ventricular cavity size. Moderate concentric left ventricular hypertrophy. Normal left ventricular systolic function. Left ventricular ejection fraction is estimated at 70 %. No regional wall motion abnormalities. Grade I diastolic dysfunction (abnormal relaxation filling pattern), normal to mildly elevated filling pressures. Right Ventricle Normal right ventricular size and systolic function. Right ventricular systolic pressure 20.1 mmHg. Right Atrium Normal right atrial size. Left Atrium Normal left atrial size. Mitral Valve Moderate mitral annular calcification. Thickened and calcified mitral valve. No mitral valve stenosis. Trace mitral valve regurgitation. Aortic Valve Mildly thickened and calcified trileaflet aortic valve. Mild aortic valve stenosis, mean gradient 8.6 mmHg, STEVO 1.9 cm squared. Trace aortic valve regurgitation. Tricuspid Valve Structurally normal tricuspid valve. Trace tricuspid valve regurgitation. Pulmonic Valve Pulmonic valve not well visualized. Trace pulmonary valve regurgitation. Pericardium No pericardial effusion. Aorta Normal size aortic root and proximal ascending aorta. CONCLUSIONS 1. Normal left ventricular cavity size and systolic function. Moderate concentric left ventricular hypertrophy. Left ventricular ejection fraction is estimated at 70 %. No regional wall motion abnormalities. Grade I diastolic dysfunction (abnormal relaxation filling pattern), normal to mildly elevated filling pressures. 2. Normal right ventricular size and systolic function. 3. Mild aortic valve stenosis, mean gradient 8.6 mmHg, STEVO 1.9 cm squared. 4. Normal pulmonary artery pressure. 5. When compared to previous echocardiogram dated 02/20/2019, there may not have been any significant change. Lucia Oakley MD (Electronically Signed) Final Date: 25 December 2019 16:29 S
[2019-12-25 09:03] LABS: Glucose Point of Care 279 mg/dL (70-110)
[2019-12-25] MEDS: digoxin 125 mcg Tablet PO (09:11)
[2019-12-25] MEDS: magnesium lactate 84 mg Tablet PO ×2 (09:11→18:10)
[2019-12-25] MEDS: ciprofloxacin 500 mg Tablet PO ×2 (09:12→18:11)
[2019-12-25] MEDS: atorvastatin 40 mg Tablet PO (09:12)
[2019-12-25] MEDS: cholecalciferol (vitamin D3) 1,000 unit Tablet 1000 UNIT PO (09:12)
[2019-12-25] MEDS: BuSPIRONE 10 mg Tablet PO ×2 (09:12→18:11)
[2019-12-25] MEDS: metoprolol tartrate 50 mg Tablet 100 MG PO ×2 (09:12→18:10)
[2019-12-25] MEDS: levothyroxine 50 mcg Tablet PO (09:12)
[2019-12-25] MEDS: hyDRALAzine 25 mg Tablet PO ×3 (09:12→22:14)
[2019-12-25] MEDS: amlodipine 10 mg Tablet PO (09:13)
[2019-12-25] MEDS: ferrous gluconate 324 mg Tablet PO (09:13)
[2019-12-25] MEDS: pantoprazole DR 40 mg Tablet PO ×2 (09:13→18:11)
[2019-12-25] MEDS: levothyroxine 125 mcg Tablet PO (09:13)
[2019-12-25] MEDS: sodium chlor 0.9% + KCl 20 mEq 20 MEQ/1,000 ML BAG 75 MEQ IV (09:14)
--- NOTE | 2019-12-25 10:30 | PC.CHAP ---
Pastoral Care Encounter/Spiritual Assessment Type of Contact [] Declined back shoe worker visit [] Patient/Family/Request visit [] Outpatient visit [] Follow-up visit [] Physician referral [] Code/Alert [x] Routine visit [] Staff referral [] Actively dying [] Patient sleeping [] Family support [] [] Out of room [] Palliative care [] [] Receiving care in room [] Pre-surgical visit [] Trauma [] Long length of stay [] ICU visit [] Other: Relational/Emotional Strength [x] Patient feels connected with others/family/visitors/staff [] Distress [] Loneliness/isolation [] Abandonment Spirituality of Patient [x] Person of Joelle [] Attends Jainism of their Joelle x[] Believes in Prayer [] Reads Bible or Mormon materials [x] There are Spiritual issues to be addressed Therapist Phys Interventions [] Prayer [x] Active listening [x] Non-anxious presence [x] Spiritual/emotional support [] Crisis/trauma care [] Spiritual counseling [] Bereavement support [] Provided bereavement packet [] Provided Bible/devotional materials [] Provided toy/stuffed animal, coloring book to patient or family member [] Provided Communion [] Anointing/[place] [] Salvation [x] Completed spiritual assessment [] Other: Impact on Illness or Injury [] Angry [] Fearful [] Anxious [] Often cries [] Exhaustion [] Unable to work [] Unable to attend presybeterian [] Unable to walk/stand [] Unable to read [] Unable to drive [] Unable to eat/drink [] Unable to sleep [] Unable to be with family [] Patient intubated [x] Other: Summary Prayer with the patient was not provided based on staff having need to see patient. Time spent with patient 5 minutes Pastoral Care Encounter/Spiritual Assessment Type of Contact [] Declined back shoe worker visit [] Patient/Family/Request visit [] Outpatient visit [] Follow-up visit [] Physician referral [] Code/Alert [] Routine visit [] Staff referral [] Actively dying [] Patient sleeping [] Family support [] [] Out of room [] Palliative care [] [] Receiving care in room [] Pre-surgical visit [] Trauma [] Long length of stay [] ICU visit [] Other: Relational/Emotional Strength [] Patient feels connected with others/family/visitors/staff [] Distress [] Loneliness/isolation [] Abandonment Spirituality of Patient [] Person of Joelle [] Attends Jainism of their Joelle [] Believes in Prayer [] Reads Bible or Mormon materials [] There are Spiritual issues to be addressed Therapist Phys Interventions [] Prayer [] Active listening [] Non-anxious presence [] Spiritual/emotional support [] Crisis/trauma care [] Spiritual counseling [] Bereavement support [] Provided bereavement packet [] Provided Bible/devotional materials [] Provided toy/stuffed animal, coloring book to patient or family member [] Provided Communion [] Anointing/[place] [] Salvation [] Completed spiritual assessment [] Other: Impact on Illness or Injury [] Angry [] Fearful [] Anxious [] Often cries [] Exhaustion [] Unable to work [] Unable to attend presybeterian [] Unable to walk/stand [] Unable to read [] Unable to drive [] Unable to eat/drink [] Unable to sleep [] Unable to be with family [] Patient intubated [] Other: Summary Time spent with patient
[2019-12-25 11:15] LABS: Glucose Point of Care 272 mg/dL (70-110)
[2019-12-25] MEDS: enoxaparin 40 mg/0.4 mL Syringe SUBCUT (11:31)
--- NOTE | 2019-12-25 12:39 | PM.PN ---
Subjective Subjective: Interval history: Patient sleeping comfortably in bed at time of exam. Upon waking she denied any chest pain or shortness of breath. Reported that she received a pain pill which made her somewhat sleepy. Patient reported generalized weakness is slightly improved. Denies any nausea or vomiting. Denies any abdominal pain. Vitals/I&O/Wt Last Vital Signs Temp 98.2 F 12/25/19 11:10 Pulse 84 12/25/19 11:10 Resp 18 12/25/19 11:10 BP 139/78 12/25/19 11:10 Pulse Ox 98 12/25/19 11:10 12/24/19 12/25/19 12/25/19 22:59 06:59 14:59 Intake Total 360 / 4648.848 5064 / 1360 Output Total 1000 / 1000 1550 / 2550 Balance -640 / 246.667 -1550 / -1807.820 5969 / 1360 Weight last 48 hrs Weight 109.769 kg Weight 108.862 kg Physical Exam Const: COMMON NORMALS: oriented x3 and alert GENERAL APPEARANCE: cooperative ORIENTATION/CONSCIOUSNESS: Yes awake, Yes oriented to person, Yes oriented to place and Yes oriented to time HENMT: COMMON NORMALS: normocephalic and head/scalp atraumatic HEAD & SCALP: normocephalic and atraumatic Eye: COMMON NORMALS: PERRL PUPIL: Yes PERRL Neck/C-Spine: COMMON NORMALS: supple GENERAL: Yes normal visual inspection Resp: COMMON NORMALS: normal respiratory effort and clear to auscultation bilaterally EFFORT & INSPECTION: Yes able to speak in complete sentences AUSCULTATION: clear to auscultation bilaterally OTHER: Oxygen by nasal cannula in place, diminished breath sounds bilaterally with prolonged expiratory phase Cardio: COMMON NORMALS: regular rate and regular rhythm RATE: regular rate RHYTHM: regular rhythm HEART SOUNDS: murmur systolic GI: COMMON NORMALS: soft to palpation and non-tender INSPECTION: No abdominal distension AUSCULTATION: Yes normoactive bowel sounds PALPATION: Yes soft OTHER: Obese Extremity: COMMON NORMALS: no clubbing, cyanosis or edema and no calf tenderness Neuro: COMMON NORMALS: oriented x3, CN's II-XII intact bilaterally, moves all extremities and no focal motor deficits SENSORIUM/ORIENTATION: Yes alert, Yes oriented to person, Yes oriented to place and Yes oriented to time SPEECH: speech normal Psych: COMMON NORMALS: mental status grossly normal Skin: COMMON NORMALS: no rashes or lesions noted GENERAL SKIN EXAM: no rashes or lesions noted Urinary Catheter Management^: Manzanares: Cath Placed During This Visit: yes Reason for Continuing Indwelling Catheter: Accurate Measurement of Urinary Output in Critically Ill Patients Urinary Catheter Date of Insertion: 12/24/19 Urinary Catheter Time of Insertion: 06:20 Data : 12/25/19 05:12 12/25/19 05:12 A&P Assessment and plan (1) Generalized weakness: Patient reports generalized weakness and decreased ability to perform daily activities Patient to remain on observation and continue to work with physical therapy and Occupational Therapy. Weakness somewhat improved today. Plan to increase ambulation throughout the day. Discussed with case management and potential [facility] facility placement Believed to be multifactorial Continue treatment for UTI Physical therapy and Occupational Therapy ordered Patient and are in agreement to [facility] facility placement, believe patient would benefit from this Status: Acute (2) Cystitis: Cipro 500 mg twice daily Status: Acute (3) Hypertension: amlodipine 10 mg daily now Restart hydralazine Continue on digoxin and metoprolol Status: Acute (4) Hypothyroidism: Continue levothyroxine Status: Acute (5) Morbid obesity: Status: Acute (6) Anxiety and depression: Patient is on Cymbalta 90 mg daily, Diego Mukherjee Status: Acute (7) Chronic combined systolic and diastolic CHF (congestive heart failure): Continue on metoprolol, Lasix every other day Echocardiogram ordered, due to systolic murmur. We will follow-up with results. Status: Acute (8) COPD (chronic obstructive pulmonary disease): Without acute exacerbation, patient is on her home 2 L of oxygen by nasal cannula, continue with home breathing treatments Status: Acute Additional A&P Information Hypercalcemia resolved Hypokalemia: Continue daily potassium, replace in IV fluids Chronic kidney disease, creatinine appears to be at baseline at this time Diabetes mellitus type 2, insulin-dependent: Continue with 70/30 at 30 units in the morning and 30 units at night Chronic pain on daily opioids: Due to generalized weakness and reported sleepiness will hold sedating medications at this time DVT prophylaxis: Lovenox Diet: Cardiac, carbohydrate consistent CODE STATUS: Full code Attestations Medical Necessity Statement*: Patient remained on observation status due to generalized weakness and cystitis. We will continue to increase ambulation and work further with physical therapy and Occupational Therapy Coding Level of Care Code Acute Satin Finisher for Chg Fwd Diagnoses Generalized weakness R53.1 Cystitis N30.90 Hypertension I10 Hypothyroidism E03.9 Morbid obesity E66.01 Anxiety and depression F41.9; F32.9 Chronic combined systolic and diastolic CHF (congestive heart failure) I50.42 COPD (chronic obstructive pulmonary disease) J44.9
[2019-12-25] MEDS: insulin aspart 70/30 100 units/1 mL 30 UNIT SUBCUT (15:16)
[2019-12-25 16:15] LABS: Glucose Point of Care 352 mg/dL (70-110)
[2019-12-25] MEDS: ondansetron 2 mg/ML SDV 2 mL 4 MG IVP (18:07)
[2019-12-25] MEDS: docusate sodium 100 mg Capsule PO (22:13)
[2019-12-25] MEDS: aspirin 325 mg Tablet PO (22:14)
[2019-12-26] VITALS: BP 122/69; PULSE 71; RESP 18; TEMP 36.8; O2SAT 98
[2019-12-26 02:48] LABS: Glucose Point of Care 202 mg/dL (70-110)
[2019-12-26] MEDS: insulin aspart 70/30 100 units/1 mL 30 UNIT SUBCUT (03:24)
[2019-12-26 04:00] VITALS: BP 126/72; PULSE 72; RESP 18; TEMP 36.9; O2SAT 97
[2019-12-26 05:08] LABS: Anion Gap 13.4 (5-19); Blood Urea Nitrogen 28 mg/dL (8-23); Calcium 9.2 mg/dL (8.5-10.5); Carbon Dioxide 31 mmol/L (22-29); Chloride 99 mmol/L (98-107); Glucose 182 mg/dL (65-115); Osmolality Calculated 292 mOsm/kg (285-295); Potassium 3.4 mmol/L (3.5-5.1); Sodium 140 mmol/L (136-145)
[2019-12-26] MEDS: duloxetine 60 mg Capsule PO (05:43)
[2019-12-26] MEDS: ARIPiprazole 10 mg Tablet 5 MG PO (05:43)
[2019-12-26] MEDS: duloxetine 30 mg Capsule PO (05:43)
[2019-12-26 07:42] LABS: Glucose Point of Care 155 mg/dL (70-110)
[2019-12-26 08:00] VITALS: BP 147/75; PULSE 68; PULSE 81; RESP 16; TEMP 36.6; O2SAT 98
[2019-12-26 08:06] VITALS: PULSE 83; RESP 18; O2SAT 96
[2019-12-26] MEDS: amlodipine 10 mg Tablet PO (08:51)
[2019-12-26] MEDS: levothyroxine 50 mcg Tablet PO (08:52)
[2019-12-26] MEDS: ciprofloxacin 500 mg Tablet PO (08:53)
[2019-12-26] MEDS: levothyroxine 125 mcg Tablet PO (08:53)
[2019-12-26] MEDS: atorvastatin 40 mg Tablet PO (08:53)
[2019-12-26] MEDS: FUROsemide 40 mg Tablet PO (08:53)
[2019-12-26 08:54] VITALS: PULSE 68
[2019-12-26] MEDS: hyDRALAzine 25 mg Tablet PO (08:54)
[2019-12-26] MEDS: BuSPIRONE 10 mg Tablet PO (08:54)
[2019-12-26] MEDS: metoprolol tartrate 50 mg Tablet 100 MG PO (08:54)
[2019-12-26] MEDS: ferrous gluconate 324 mg Tablet PO (08:54)
[2019-12-26] MEDS: cholecalciferol (vitamin D3) 1,000 unit Tablet 1000 UNIT PO (08:54)
[2019-12-26] MEDS: pantoprazole DR 40 mg Tablet PO (08:54)
[2019-12-26] MEDS: digoxin 125 mcg Tablet PO (08:54)
[2019-12-26] MEDS: magnesium lactate 84 mg Tablet PO (09:24)
--- NOTE | 2019-12-26 10:16 | PM.DCS ---
Discharge Providers Date of Admission: 12/24/19 11:03 Date of Discharge: December 26, 2019 Attending Provider at Admission: Iveth Mendez DO Attending Provider at Discharge: Iveth Mendez DO Primary Care Provider: Jada Gandhi MD Diagnoses at Discharge Discharge Diagnosis (1) Generalized weakness: Status: Acute (2) Cystitis: Status: Acute (3) Hypertension: Status: Acute (4) Hypothyroidism: Status: Acute (5) Morbid obesity: Status: Acute (6) Anxiety and depression: Status: Acute (7) Chronic combined systolic and diastolic CHF (congestive heart failure): Status: Acute (8) COPD (chronic obstructive pulmonary disease): Status: Acute Problem details: Oxygen dependent, 2 L at baseline Reason for Visit Reason for Visit: Reason For Visit: CYSTITIS, GENERAL WEAKNESS Hospital Course Hospital Course: Patient was seen and evaluated in the emergency department due to concern for generalized weakness. She was noted to have acute cystitis and admitted on observation for further evaluation and treatment. She did have physical therapy and Occupational Therapy ordered due to concern for generalized weakness and deconditioning. She was started on oral antibiotics and continued on this. Urine culture showed gram-negative rods. Patient's vital signs remained stable and she continued to improve in a stepwise fashion but was determined to need continued therapies and recommendation was for group home facility placement. On date of discharge patient denied any chest pain, no shortness of breath, no abdominal pain or nausea. Discussed with patient plan for discharge to group home facility, she verbalized understanding and agreed with plan Physical Exam Const: COMMON NORMALS: oriented x3 and alert GENERAL APPEARANCE: cooperative ORIENTATION/CONSCIOUSNESS: Yes awake, Yes oriented to person, Yes oriented to place and Yes oriented to time HENMT: COMMON NORMALS: normocephalic and head/scalp atraumatic HEAD & SCALP: normocephalic and atraumatic Eye: COMMON NORMALS: PERRL PUPIL: Yes PERRL Neck/C-Spine: COMMON NORMALS: supple GENERAL: Yes normal visual inspection Resp: COMMON NORMALS: normal respiratory effort and clear to auscultation bilaterally EFFORT & INSPECTION: Yes able to speak in complete sentences AUSCULTATION: clear to auscultation bilaterally OTHER: Oxygen by nasal cannula in place, diminished breath sounds bilaterally with prolonged expiratory phase Cardio: COMMON NORMALS: regular rate and regular rhythm RATE: regular rate RHYTHM: regular rhythm HEART SOUNDS: murmur systolic GI: COMMON NORMALS: soft to palpation and non-tender INSPECTION: No abdominal distension AUSCULTATION: Yes normoactive bowel sounds PALPATION: Yes soft OTHER: Obese : COMMON NORMALS: Yes no CVA tenderness BLADDER/KIDNEY EXAM: Yes no CVA tenderness Back/Pelvis: COMMON NORMALS: no CVA tenderness Extremity: COMMON NORMALS: no clubbing, cyanosis or edema and no calf tenderness Neuro: COMMON NORMALS: oriented x3, CN's II-XII intact bilaterally, moves all extremities and no focal motor deficits SENSORIUM/ORIENTATION: Yes alert, Yes oriented to person, Yes oriented to place and Yes oriented to time SPEECH: speech normal Psych: COMMON NORMALS: mental status grossly normal Skin: COMMON NORMALS: no rashes or lesions noted GENERAL SKIN EXAM: no rashes or lesions noted Urinary Catheter Management^: Manzanares: Cath Placed During This Visit: yes Reason for Continuing Indwelling Catheter: Acute Urinary Retention or Obstruction Urinary Catheter Date of Insertion: 12/24/19 Urinary Catheter Time of Insertion: 06:20 Discharge Data Data Completed and Pending: Completed Studies During Hospitalization Category Date Time Status CT abdomen pelvis w con* [id number] Urge nt Cat Scan 12/24/19 03:[address] head wo con* [id number] Urgent Cat Scan 12/24/19 01:57 Completed XR chest 1V teetee ble [id number] Stat Exams 12/24/19 01:57 Completed CV echo complete* [id number] Routine Ultrasound 12/25/19 07:00 Taken Pending at discharge Category Date Time Status Urine Culture Sta t Lab 12/24/19 06:20 Results Labs from last 24 hours 12/26/19 12/26/19 12/26/19 07:33 03:33 02:45 Sodium 140 Potassium 3.4 L Chloride 99 Carbon Dioxide 31 H Anion Gap 13.4 BUN 28 H Creatinine 1.3 H Glucose 182 H POC Glucose 155 202 Calculated Osmolal ity 292 Calcium 9.2 Urine Color Urine Appearance Urine pH Ur Specific Gravit y Urine Protein Urine Glucose (UA) Urine Ketones Urine Blood Urine Nitrate Urine Bilirubin Urine Urobilinogen Ur Leukocyte Dorota ase Urine RBC Urine WBC Ur Squamous Epith Cells Urine Bacteria 12/25/19 12/25/19 12/24/19 15:55 11:09 06:20 Sodium Potassium Chloride Carbon Dioxide Anion Gap BUN Creatinine Glucose POC Glucose 352 272 Calculated Osmolal ity Calcium Urine Color Yellow Urine Appearance Cloudy Urine pH 5.0 Ur Specific Gravit y 1.015 Urine Protein 3+ H Urine Glucose (UA) Norm Urine Ketones 1+ H Urine Blood Neg Urine Nitrate Negative Urine Bilirubin Neg Urine Urobilinogen Norm Ur Leukocyte Dorota ase 1+ H Urine RBC None Urine WBC 40-55 H Ur Squamous Epith Cells 0-4 H Urine Bacteria 4+ H Vitals: Last Vital Signs Temp 97.8 F 12/26/19 08:00 Pulse 68 12/26/19 08:54 Resp 18 12/26/19 08:06 BP 147/75 12/26/19 08:00 Pulse Ox 96 12/26/19 08:06 Discharge Plan Discharge Patient Disposition: Xfer SNF Condition: Stable Prescriptions: New ciprofloxacin HCl 500 mg Tablet 500 mg PO BID 5 Days Qty: 10 RF: 0 Continued digoxin [Digox] 125 mcg (0.125 mg) tablet 125 mcg PO DAILY RF: 0 ergocalciferol (vitamin D2) 50,000 unit tablet 50,000 unit PO Q7D RF: 0 Forteo 20 mcg/dose - 600 mcg/2.4 mL pen injector 20 mcg SUBCUT DAILY RF: 0 garlic 1,000 mg capsule 1,000 mg PO DAILY RF: 0 ferrous gluconate 324 mg (37.5 mg iron) tablet 324 mg PO DAILY RF: 0 aspirin 325 mg tablet 325 mg PO BEDTIME RF: 0 Novolin 70/30 U-100 Insulin 100 unit/mL (70-30) suspension See Rx Instructions .ROUTE .COMPLEX RF: 0 furosemide [Lasix] 20 mg tablet 40 mg PO EVERY OTHER DAY RF: 0 metoprolol tartrate 50 mg tablet 100 mg PO BID RF: 0 buspirone 10 mg tablet 10 mg PO BID Qty: 60 RF: 1 duloxetine [Cymbalta] 60 mg capsule,delayed release(DR/EC) 60 mg PO QAM Qty: 30 RF: 1 duloxetine [Cymbalta] 30 mg capsule,delayed release(DR/EC) 30 mg PO QAM Qty: 30 RF: 1 Abilify 5 mg tablet 5 mg PO QAM Qty: 30 RF: 1 levothyroxine 175 mcg capsule 175 mcg PO DAILY RF: 0 pantoprazole [Protonix] 40 mg tablet,delayed release (DR/EC) 40 mg PO BID RF: 0 potassium chloride 20 mEq tablet extended release 20 meq PO BID RF: 0 albuterol sulfate [ProAir HFA] 90 mcg/actuation HFA aerosol inhaler 2 puff INHALATION Q6H PRN (Reason: Shortness Of Breath) RF: 0 hydrocodone-acetaminophen 5-325 mg tablet 1 tab PO Q6H PRN (Reason: pain) 30 Days Qty: 120 RF: 0 amlodipine 10 mg tablet 10 mg PO DAILY Qty: 90 RF: 3 hydralazine 25 mg tablet 25 mg PO TID Qty: 270 RF: 3 atorvastatin [Lipitor] 40 mg Tablet 40 mg PO DAILY RF: 0 pantothenic acid (vit B5) 500 mg Tablet 500 mg PO DAILY RF: 0 chlorpheniramine maleate [ChlorTabs] 4 mg Tablet 4 mg PO TID RF: 0 carica papaya [Papaya Enzyme] Tablet 4 tab PO PRN RF: 0 albuterol sulfate 2.5 mg /3 mL (0.083 %) Solution For Nebulization 2.5 mg INHALATION Q4H PRN (Reason: Shortness Of Breath) RF: 0 riboflavin (vitamin B2) [Vitamin B-2] 100 mg Tablet 100 mg PO DAILY RF: 0 ondansetron HCl [Zofran] 4 mg Tablet 4 mg PO DAILY PRN (Reason: Nausea) RF: 0 loperamide [Anti-Diarrheal (loperamide)] 2 mg Tablet 2 - 4 mg PO DIRECTED RF: 0 cyanocobalamin (vitamin B-12) [Vitamin B-12] 1,000 mcg Tablet 1,000 mcg PO DAILY RF: 0 acetaminophen [Arthritis Pain Reliever] 650 mg Tablet Extended Release 650 mg PO PRN RF: 0 diphenhydramine HCl [Benadryl] 25 mg Capsule 25 mg PO PRN RF: 0 nitroglycerin [Nitrostat] 0.4 mg Tablet, Sublingual 0.4 mg SUBLINGUAL Q5M PRN (Reason: Chest Pain) RF: 0 docusate sodium [Stool Softener] 100 mg Capsule 100 mg PO BID PRN (Reason: Constipation) RF: 0 zinc 50 mg Tablet 50 mg PO DAILY RF: 0 pyridoxine (vitamin B6) [Vitamin B-6] 100 mg Tablet 100 mg PO DAILY RF: 0 vitamin E 400 unit Capsule 400 unit PO DAILY RF: 0 loratadine 10 mg Tablet 20 mg PO DAILY RF: 0 methylsulfonylmethane [MSM] 1,000 mg Tablet 1,000 mg PO BID RF: 0 magnesium L-lactate [Magtab] 84 mg tablet extended release 84 mg PO BID RF: 0 cholecalciferol (vitamin D3) [Vitamin D3] 25 mcg (1,000 unit) Tablet 1,000 unit PO DAILY RF: 0 omega 8-[id number]-drg-fish oil [Ultra [place]-3] 500-1,000 mg Capsule 2 cap PO DAILY RF: 0 Liver Aid 2 tab PO DAILY RF: 0 cranberry 2 tab PO QAM RF: 0 black cohosh 40 mg Tablet 80 mg PO DAILY RF: 0 tramadol 50 mg tablet 100 mg PO QID PRN (Reason: pain) 5 Days Qty: 20 RF: 1 Discontinued tizanidine 4 mg tablet 4 mg PO TID PRN (Reason: muscle spasticity) Qty: 90 RF: 0 Discharge Orders: Discharge Order (Routine); Ordered 12/26/19 Ordered By: Iveth Mendez Referrals: Jada Gandhi MD [Primary Care Provider] - 1-3 days Discharge Diet: Advance as tolerated, Cardiac and Diabetic Discharge Activity: Increase activity as tolerated and As per PT/OT instructions Patient Instructions: COPD, Depression, Ciprofloxacin (By mouth), Heart Failure (DC), Obesity (DC), Anxiety (DC), CHF Stoplight, COPD Stoplight Activity Restrictions/Additional Instructions: Prescribed Cipro twice daily for acute cystitis, continue course as prescribed Patient is diabetic on insulin, will continue to require Accu-Cheks and close monitoring of blood glucose Continue with oxygen by nasal cannula per protocol to maintain saturations Continue to increase activity as tolerated, continue with physical therapy and Occupational Therapy Call your physician or present to the ED for any acute illness or concern Discharge Attestations Time Spent in Discharge Care*: greater than 30 min Status at Discharge: Cognitive status at discharge: cognitively intact, Behavioral status at discharge: cooperative, Quality Metrics Clinical Quality Measures During this hospital stay, did patient experience: None Coding Level of Care Code Acute Sewer Cleaner for Chg Fwd Diagnoses Generalized weakness R53.1 Cystitis N30.90 Hypertension I10 Hypothyroidism E03.9 Morbid obesity E66.01 Anxiety and depression F41.9; F32.9 Chronic combined systolic and diastolic CHF (congestive heart failure) I50.42 COPD (chronic obstructive pulmonary disease) J44.9
[2019-12-26 10:26] VITALS: PULSE 68
[2019-12-26 11:49] LABS: Glucose Point of Care 328 mg/dL (70-110)
[2019-12-26 20:16] LABS: Glucose Point of Care 360 mg/dL (70-110)
== END 2019-12-26 13:37 | disposition skilled nursing facility (03) ==
LOC: ER 11:59 → MEDSURG 12:00
PROVIDERS: Emergency Medicine; Admitting Provider Family Medicine; Emergency Provider Family Medicine; Family Provider Family Medicine; PCP Family Medicine; Visit Provider Family Medicine
DX: R53.1 Weakness (principal); N30.90 Cystitis, unspecified without hematuria; E11.22 Type 2 diabetes mellitus with diabetic chronic kidney disease; I13.0 Hypertensive heart and chronic kidney disease with heart failure and stage 1 through stage 4 chronic kidney disease, or unspecified chronic kidney disease; N18.9 Chronic kidney disease, unspecified; I50.42 Chronic combined systolic (congestive) and diastolic (congestive) heart failure; E03.9 Hypothyroidism, unspecified; E66.01 Morbid (severe) obesity due to excess calories; Z68.41 Body mass index [BMI] 40.0-44.9, adult; F41.9 Anxiety disorder, unspecified; F32.9 Major depressive disorder, single episode, unspecified; J44.9 Chronic obstructive pulmonary disease, unspecified; E83.52 Hypercalcemia; G89.29 Other chronic pain; Z79.891 Long term (current) use of opiate analgesic; Z79.4 Long term (current) use of insulin; Z99.81 Dependence on supplemental oxygen; Z82.49 Family history of ischemic heart disease and other diseases of the circulatory system; Z87.891 Personal history of nicotine dependence
CPT/HCPCS: 12345; 36415; 36416; 51702; 70450; 71045; 74177; 80048; 80053; 80307; 81001; 82009; 82140; 82550; 82803; 82962; 83605; 83690; 83735; 84443; 84484; 85025; 87077; 87086; 87186; 93005; 93306; 96361; 96365; 96366; 96372; 96375; 97110; 97161; 97166; 97535; 99284; 99285; G0378; J1650; J1815; J2405; J3480; J3490; J7030; Q9967

== ENCOUNTER 2019-12-31 16:17 | Observation (INO) | payer MEDICARE, SELFPAY ==
[2019-12-31] VITALS (10 sets, daily range): BP systolic 110–151; BP diastolic 62–81; PULSE 77–96; RESP 16–18; TEMP 36.7–36.9; O2SAT 97–100; BMI 39.9
--- NOTE | 2019-12-31 16:52 | XR_ITS ---
WS: [id number] CHEST XRAY TECHNIQUE: Portable chest. CLINICAL INFORMATION: dyspnea/cough COMPARISON: December 24, 2019 FINDINGS: Heart: Cardiomegaly. Aortic calcification. Lungs: Mild chronic emphysematous changes. No acute pulmonary infiltrates. Bones: Normal visualized bony structures. XR/XR chest 1V portable [id number] IMPRESSION: Mild chronic emphysematous changes. No acute-appearing pulmonary infiltrates.
--- NOTE | 2019-12-31 16:53 | ECG_ITS ---
Measurements Intervals [place] Rate: 79 P: 24 NV: 221 QRS: -67 QRSD: 167 T: 16 QT: 424 QTc: 489 SINUS RHYTHM WITH FIRST DEGREE AV BLOCK RIGHT BUNDLE BRANCH BLOCK LEFT ANTERIOR FASCICULAR BLOCK MODERATE VOLTAGE CRITERIA FOR LVH, CONSIDER NORMAL VARIANT POSSIBLE SEPTAL MYOCARDIAL INFARCTION , OF INDETERMINATE AGE Compared to ECG 12/24/2019 04:48:03 Myocardial infarct finding now present Electronically Signed On 01-01-2020 14:17:41 CDT by Lucia Oakley M.D. [email or web address]
--- NOTE | 2019-12-31 17:00 | W.ED.CHESTPA ---
Documented by User: Kenrick Treviño DO 01/02/20 13:58 HPI - Chest Pain General: Chief Complaint: Chest Pain Stated Complaint: CHEST PAIN Time Seen by Provider: 12/31/19 16:17 History of Present Illness: HPI narrative: 69-year-old female presents emergency room with complaint of chest pain and pressure she is living at a care home now recovering from recent hospitalization for cystitis. Began this morning she states she has it every 3 to 6 months is been a chronic thing for years. She also associated with some low back pain with it. She did note that walking in the room makes the chest pain a little bit worse. Rest does seem to make it better. She had associated dyspnea but no diaphoresis no nausea or vomiting. She denies any other symptoms no cough fever sweats chills no abdominal discomfort no flank pain. MD complaint: chest pain and chest discomfort Pertinent past history: other (Chronic chest pain with no history of known coronary artery disease) Onset (ago): hour(s) (12 hours) Timing of current episode: episodic Prior episodes: Yes Onset: during rest and during exertion Pain location: left chest Pain radiation: none Severity: moderate Quality: aching and heaviness Exacerbating factors: nothing Context: recent illness Associated symptoms: Deny abdominal pain, dyspnea, fever(s), nausea or vomiting Review of Systems Const: Denies: fever, chills, body aches, change in appetite, fatigue or malaise ENMT: Denies: throat pain, ear pain, nasal discharge or nasal congestion Card: Denies: chest pain, edema, shortness of breath on exertion or shortness of breath when lying down Resp: Denies: shortness of breath, productive cough or non-productive cough GI: Denies: abdominal pain, nausea, vomiting, vomiting blood, coffee grounds in vomit, diarrhea, constipation, bloating, blood in stool or black tarry stool : Denies: flank pain, difficulty urinating, painful urination, urinary frequency or urinary urgency Skin/Breast: Denies: rash or itching PFSH ED PFSH: Medical History Anxiety and depression Cholecystectomy planned Chronic combined systolic and diastolic CHF (congestive heart failure) COPD (chronic obstructive pulmonary disease) Oxygen dependent, 2 L at baseline Encounter for long-term opiate analgesic use Hyperlipidemia Hypertension Hypothyroidism Left renal mass Liver cirrhosis Low back pain of over 3 months duration Morbid obesity Opioid contract exists Recurrent UTI Urgency incontinence Surgical History History of cardiac cath History of hysterectomy History of knee replacement History of thyroid surgery Family History Other CAD (coronary artery disease) Cancer Denies family history of Anesthesia complication Bleeding disorder Social History Smoking and tobacco status: former smoker Quit status (tobacco): has quit using tobacco Year quit tobacco: 2005 Second hand smoke exposure: No Alcohol intake: unknown Adopted: No Caregiver/support person: No Lives independently: No Household members: spouse Marital status: Current occupational status: retired History of recent travel: No Current gender identity: Female Physical Exam Const: COMMON NORMALS: no apparent distress GENERAL APPEARANCE: cooperative; not comfortable ORIENTATION/CONSCIOUSNESS: Yes awake, Yes oriented to person, Yes oriented to place and Yes oriented to time HENMT: COMMON NORMALS: normocephalic, head/scalp atraumatic, hearing grossly normal bilaterally, external ears normal, EAC's normal, TM's normal bilaterally, nasal mucous membranes and turbinates normal, moist oral mucous membranes and oropharynx normal HEAD & SCALP: normocephalic and atraumatic NOSE: nasal mucous membranes and turbinates normal EXTERNAL EAR: Yes external ears normal EXTERNAL AUDITORY CANAL: EAC's normal TYMPANIC MEMBRANE: TM's normal bilaterally Eye: COMMON NORMALS: PERRL, EOMs intact bilaterally, conjunctivae normal and no scleral icterus CONJUNCTIVA: Yes conjunctivae normal PUPIL: Yes PERRL Neck/C-Spine: COMMON NORMALS: full ROM, no lymphadenopathy, supple and no JVD Lymph: LYMPHATIC: no lymphadenopathy noted and no lymphedema noted Resp: COMMON NORMALS: normal respiratory effort, no retractions, no use of accessory muscles and clear to auscultation bilaterally AUSCULTATION: clear to auscultation bilaterally Cardio: COMMON NORMALS: no JVD, regular rate, regular rhythm and no murmurs RATE: regular rate RHYTHM: regular rhythm GI: COMMON NORMALS: soft to palpation and no hepatosplenomegaly AUSCULTATION: Yes normoactive bowel sounds PALPATION: Yes soft, No tender, No guarding and Yes no hepatosplenomegaly Extremity: COMMON NORMALS: normal to inspection, normal capillary refill, no clubbing, cyanosis or edema, no calf tenderness and no pedal edema Neuro: SENSORIUM/ORIENTATION: Yes oriented to person, Yes oriented to place and Yes oriented to time Skin: COMMON NORMALS: no rashes or lesions noted GENERAL SKIN EXAM: no rashes or lesions noted Course Vital Signs: Vital signs: Vital Signs Temperature 98.0 F 01/01/20 14:44 Pulse Rate 94 01/01/20 14:44 Respiratory Rate 16 01/01/20 14:44 Blood Pressure 137/72 01/01/20 14:44 Pulse Oximetry 94 01/01/20 14:44 MDM - Chest Pain MDM Narrative: Medical decision making narrative: Care transferred at change of shift to Dr. Rubio. See his notes for definitive diagnosis and disposition. Lab Data: Labs: Lab Results 12/31/19 12/31/19 12/31/19 Range/Units 16:43 16:43 16:43 WBC 7.6 (4.0-10.0) 10^3/ uL RBC 3.52 L (4.1-5.3) 10^6/u L Hgb 11.1 L (11.5-15.3) g/dL Hct 34.0 L (37.0-47.0) % MCV 96.6 (81-99) fL MCH 31.5 (28.0-34.0) pg MCHC 32.6 (30.0-36.0) g/dL RDW 13.6 (12.1-15.1) % Plt Count 290 (130-400) 10^3/c mm MPV 10.3 (7.4-10.4) fL Neut % (Auto) 62.5 % Lymph % (Auto) 23.5 % Bullock % (Auto) 10.8 % Eos % (Auto) 2.0 % Baso % (Auto) 0.8 % Neut # (Auto) 4.7 (1.8-7.7) 10^3/u L Lymph # (Auto) 1.8 (0.8-4.8) 10^3/u L Bullock # (Auto) 0.8 (0.2-0.9) 10^3/u L Eos # (Auto) 0.2 (0.0-0.8) 10^3/u L Baso # (Auto) 0.1 (0.0-0.1) 10^3/u L Nucleated RBC % (a uto) 0 % Nucleated RBCs # 0.0 /100WBC Sodium 138 (136-145) mmol/L Potassium 4.3 (3.5-5.1) mmol/L Chloride 97 L (98-107) mmol/L Carbon Dioxide 29 (22-29) mmol/L Anion Gap 16.3 (5-19) BUN 18 (8-23) mg/dL Creatinine 1.2 H (0.5-0.9) mg/dL Glucose 305 H (65-115) mg/dL Calculated Osmolal ity 294 (285-295) mOsm/k g Calcium 8.9 (8.5-10.5) mg/dL Total Bilirubin 0.2 (0.15-1.2) mg/dL AST 48 H (0-32) U/L ALT 37 H (0-33) U/L Alkaline Phosphata se 114 H (35-105) IU/L Troponin T Baselin e 25 H (0-10) ng/mL Troponin T 120 Min [place] (0-10) ng/mL Delta Troponin T (0-10) ABS# Total Protein 6.6 (6.6-8.7) g/dL Albumin 3.6 (3.5-5.2) g/dL Globulin 3.0 (1.3-4.6) g/dL Lipase 44 (13-60) U/L Urine Color (Yellow) Urine Appearance (CLEAR) Urine pH (5-7) Ur Specific Gravit y (1.005-1.030) Urine Protein (Negative) Urine Glucose (UA) (Normal) Urine Ketones (Negative) Urine Blood (Negative) Urine Nitrate (Negative) Urine Bilirubin (NEGATIVE) Urine Urobilinogen (Negative) mg/dL Ur Leukocyte Dorota ase (Negative) Urine RBC (0-2) /hpf Urine WBC (0-5) /hpf Ur Squamous Epith Cells (0-5) Urine Bacteria (NONE) Digoxin (0.6-1.2) ng/mL 12/31/19 12/31/19 12/31/19 Range/Units 16:43 17:52 18:33 WBC (4.0-10.0) 10^3/ uL RBC (4.1-5.3) 10^6/u L Hgb (11.5-15.3) g/dL Hct (37.0-47.0) % MCV (81-99) fL MCH (28.0-34.0) pg MCHC (30.0-36.0) g/dL RDW (12.1-15.1) % Plt Count (130-400) 10^3/c mm MPV (7.4-10.4) fL Neut % (Auto) % Lymph % (Auto) % Bullock % (Auto) % Eos % (Auto) % Baso % (Auto) % Neut # (Auto) (1.8-7.7) 10^3/u L Lymph # (Auto) (0.8-4.8) 10^3/u L Bullock # (Auto) (0.2-0.9) 10^3/u L Eos # (Auto) (0.0-0.8) 10^3/u L Baso # (Auto) (0.0-0.1) 10^3/u L Nucleated RBC % (a uto) % Nucleated RBCs # /100WBC Sodium (136-145) mmol/L Potassium (3.5-5.1) mmol/L Chloride (98-107) mmol/L Carbon Dioxide (22-29) mmol/L Anion Gap (5-19) BUN (8-23) mg/dL Creatinine (0.5-0.9) mg/dL Glucose (65-115) mg/dL Calculated Osmolal ity (285-295) mOsm/k g Calcium (8.5-10.5) mg/dL Total Bilirubin (0.15-1.2) mg/dL AST (0-32) U/L ALT (0-33) U/L Alkaline Phosphata se (35-105) IU/L Troponin T Baselin e (0-10) ng/mL Troponin T 120 [address] [place] 24.31 H (0-10) ng/mL Delta Troponin T -0.69 L (0-10) ABS# Total Protein (6.6-8.7) g/dL Albumin (3.5-5.2) g/dL Globulin (1.3-4.6) g/dL Lipase (13-60) U/L Urine Color Yellow (Yellow) Urine Appearance Hazy A (CLEAR) Urine pH 5 (5-7) Ur Specific Gravit y 1.020 (1.005-1.030) Urine Protein 2+ H (Negative) Urine Glucose (UA) Norm (Normal) Urine Ketones Negative (Negative) Urine Blood Neg (Negative) Urine Nitrate Negative (Negative) Urine Bilirubin Neg (NEGATIVE) Urine Urobilinogen Norm (Negative) mg/dL Ur Leukocyte Dorota ase Negative (Negative) Urine RBC None (0-2) /hpf Urine WBC None (0-5) /hpf Ur Squamous Epith Cells None (0-5) Urine Bacteria 1+ H (NONE) Digoxin 0.9 (0.6-1.2) ng/mL Discharge Plan Discharge Patient Disposition: Placed in Observation Admit Provider: Tim Robert Clinical Impression: Chest pain Qualifiers: Chest pain type: unspecified Qualified Code(s): R07.9 - Chest pain, unspecified Condition: Stable Referrals: [facility] [Provider Group] - 4-7 days (Renal mass, lung nodule) [facility] [Outside] Keisha Coronel MD [Physician] - 01/20/20 10:00 am (As scheduled. ) Jada Gandhi MD [Primary Care Provider] - 01/09/20 2:30 pm Discharge Diet: Usual diet Discharge Activity: Resume usual activity, Increase activity as tolerated and Oxygen as instructed Additional Instructions: Tylenol as needed for pain of chest wall. Warm or cold compress, Bengay or icy hot. If you experience chest pain or heaviness which is persistent, not reproducible on palpation, worsening/progressive shortness of breath, or other abnormal symptoms, please seek medical attention without delay. Please discuss with your primary care doctor regarding left lung nodule (also in relation to known renal mass) and consideration of follow-up imaging. Continue your other follow up including cardiology and urology regarding kidney mass. Discuss with urologist regarding lung nodule. Discharge Date/Time: 12/31/19 20:51 Sign Out Sign Out Data: Patient Sign Out occurred on 12/31/19 at 19:00. Patient's care was discussed, and care was transferred from to [facility], [place]. Coding Level of Care Code ED Food Service Representative for Chg Fwd Exam Comprehensive Documented by User: Candice Menjivar 12/31/19 20:22 HPI - Chest Pain General: Chief Complaint: Chest Pain Stated Complaint: CHEST PAIN Time Seen by Provider: 12/31/19 16:17 PFSH ED PFSH: Medical History Anxiety and depression Cholecystectomy planned Chronic combined systolic and diastolic CHF (congestive heart failure) COPD (chronic obstructive pulmonary disease) Oxygen dependent, 2 L at baseline Encounter for long-term opiate analgesic use Hyperlipidemia Hypertension Hypothyroidism Left renal mass Liver cirrhosis Low back pain of over 3 months duration Morbid obesity Opioid contract exists Recurrent UTI Urgency incontinence Surgical History History of cardiac cath History of hysterectomy History of knee replacement History of thyroid surgery Family History Other CAD (coronary artery disease) Cancer Denies family history of Anesthesia complication Bleeding disorder Social History Smoking and tobacco status: former smoker Quit status (tobacco): has quit using tobacco Year quit tobacco: 2005 Second hand smoke exposure: No Alcohol intake: unknown Adopted: No Caregiver/support person: No Lives independently: No Household members: spouse Marital status: Current occupational status: retired History of recent travel: No Current gender identity: Female Course Vital Signs: Vital signs: Vital Signs Temperature 98.0 F 01/01/20 14:44 Pulse Rate 94 01/01/20 14:44 Respiratory Rate 16 01/01/20 14:44 Blood Pressure 137/72 01/01/20 14:44 Pulse Oximetry 94 01/01/20 14:44 MDM - Chest Pain MDM Narrative: Medical decision making narrative: The case was reviewed with Dr. Robert, he agrees to admit for rule out and possible stress test. In reviewing the patient's records in 2014 she had a heart cath which showed mild coronary artery disease. Her symptoms could be consistent with crescendo angina. The patient is getting ready to go home per the care home so she is wanting to be certain that she will do well when she does. She discussed with her over the phone and she agrees to stay for testing. Her EKGs are unchanged and her second troponin is gone down from her first and she is chest pain-free. Lab Data: Labs: Lab Results 12/31/19 12/31/19 12/31/19 Range/Units 16:43 16:43 16:43 WBC 7.6 (4.0-10.0) 10^3/ uL RBC 3.52 L (4.1-5.3) 10^6/u L Hgb 11.1 L (11.5-15.3) g/dL Hct 34.0 L (37.0-47.0) % MCV 96.6 (81-99) fL MCH 31.5 (28.0-34.0) pg MCHC 32.6 (30.0-36.0) g/dL RDW 13.6 (12.1-15.1) % Plt Count 290 (130-400) 10^3/c mm MPV 10.3 (7.4-10.4) fL Neut % (Auto) 62.5 % Lymph % (Auto) 23.5 % Bullock % (Auto) 10.8 % Eos % (Auto) 2.0 % Baso % (Auto) 0.8 % Neut # (Auto) 4.7 (1.8-7.7) 10^3/u L Lymph # (Auto) 1.8 (0.8-4.8) 10^3/u L Bullock # (Auto) 0.8 (0.2-0.9) 10^3/u L Eos # (Auto) 0.2 (0.0-0.8) 10^3/u L Baso # (Auto) 0.1 (0.0-0.1) 10^3/u L Nucleated RBC % (a uto) 0 % Nucleated RBCs # 0.0 /100WBC Sodium 138 (136-145) mmol/L Potassium 4.3 (3.5-5.1) mmol/L Chloride 97 L (98-107) mmol/L Carbon Dioxide 29 (22-29) mmol/L Anion Gap 16.3 (5-19) BUN 18 (8-23) mg/dL Creatinine 1.2 H (0.5-0.9) mg/dL Glucose 305 H (65-115) mg/dL Calculated Osmolal ity 294 (285-295) mOsm/k g Calcium 8.9 (8.5-10.5) mg/dL Total Bilirubin 0.2 (0.15-1.2) mg/dL AST 48 H (0-32) U/L ALT 37 H (0-33) U/L Alkaline Phosphata se 114 H (35-105) IU/L Troponin T Baselin e 25 H (0-10) ng/mL Troponin T 120 Min [place] (0-10) ng/mL Delta Troponin T (0-10) ABS# Total Protein 6.6 (6.6-8.7) g/dL Albumin 3.6 (3.5-5.2) g/dL Globulin 3.0 (1.3-4.6) g/dL Lipase 44 (13-60) U/L Urine Color (Yellow) Urine Appearance (CLEAR) Urine pH (5-7) Ur Specific Gravit y (1.005-1.030) Urine Protein (Negative) Urine Glucose (UA) (Normal) Urine Ketones (Negative) Urine Blood (Negative) Urine Nitrate (Negative) Urine Bilirubin (NEGATIVE) Urine Urobilinogen (Negative) mg/dL Ur Leukocyte Dorota ase (Negative) Urine RBC (0-2) /hpf Urine WBC (0-5) /hpf Ur Squamous Epith Cells (0-5) Urine Bacteria (NONE) Digoxin (0.6-1.2) ng/mL 12/31/19 12/31/19 12/31/19 Range/Units 16:43 17:52 18:33 WBC (4.0-10.0) 10^3/ uL RBC (4.1-5.3) 10^6/u L Hgb (11.5-15.3) g/dL Hct (37.0-47.0) % MCV (81-99) fL MCH (28.0-34.0) pg MCHC (30.0-36.0) g/dL RDW (12.1-15.1) % Plt Count (130-400) 10^3/c mm MPV (7.4-10.4) fL Neut % (Auto) % Lymph % (Auto) % Bullock % (Auto) % Eos % (Auto) % Baso % (Auto) % Neut # (Auto) (1.8-7.7) 10^3/u L Lymph # (Auto) (0.8-4.8) 10^3/u L Bullock # (Auto) (0.2-0.9) 10^3/u L Eos # (Auto) (0.0-0.8) 10^3/u L Baso # (Auto) (0.0-0.1) 10^3/u L Nucleated RBC % (a uto) % Nucleated RBCs # /100WBC Sodium (136-145) mmol/L Potassium (3.5-5.1) mmol/L Chloride (98-107) mmol/L Carbon Dioxide (22-29) mmol/L Anion Gap (5-19) BUN (8-23) mg/dL Creatinine (0.5-0.9) mg/dL Glucose (65-115) mg/dL Calculated Osmolal ity (285-295) mOsm/k g Calcium (8.5-10.5) mg/dL Total Bilirubin (0.15-1.2) mg/dL AST (0-32) U/L ALT (0-33) U/L Alkaline Phosphata se (35-105) IU/L Troponin T Baselin e (0-10) ng/mL Troponin T 120 [address] [place] 24.31 H (0-10) ng/mL Delta Troponin T -0.69 L (0-10) ABS# Total Protein (6.6-8.7) g/dL Albumin (3.5-5.2) g/dL Globulin (1.3-4.6) g/dL Lipase (13-60) U/L Urine Color Yellow (Yellow) Urine Appearance Hazy A (CLEAR) Urine pH 5 (5-7) Ur Specific Gravit y 1.020 (1.005-1.030) Urine Protein 2+ H (Negative) Urine Glucose (UA) Norm (Normal) Urine Ketones Negative (Negative) Urine Blood Neg (Negative) Urine Nitrate Negative (Negative) Urine Bilirubin Neg (NEGATIVE) Urine Urobilinogen Norm (Negative) mg/dL Ur Leukocyte Dorota ase Negative (Negative) Urine RBC None (0-2) /hpf Urine WBC None (0-5) /hpf Ur Squamous Epith Cells None (0-5) Urine Bacteria 1+ H (NONE) Digoxin 0.9 (0.6-1.2) ng/mL Discharge Plan Discharge Patient Disposition: Placed in Observation Admit Provider: Tim Robert Clinical Impression: Chest pain Qualifiers: Chest pain type: unspecified Qualified Code(s): R07.9 - Chest pain, unspecified Condition: Stable Referrals: [facility] [Provider Group] - 4-7 days (Renal mass, lung nodule) [facility] [Outside] Keisha Coronel MD [Physician] - 01/20/20 10:00 am (As scheduled. ) Jada Gandhi MD [Primary Care Provider] - 01/09/20 2:30 pm Discharge Diet: Usual diet Discharge Activity: Resume usual activity, Increase activity as tolerated and Oxygen as instructed Additional Instructions: Tylenol as needed for pain of chest wall. Warm or cold compress, Bengay or icy hot. If you experience chest pain or heaviness which is persistent, not reproducible on palpation, worsening/progressive shortness of breath, or other abnormal symptoms, please seek medical attention without delay. Please discuss with your primary care doctor regarding left lung nodule (also in relation to known renal mass) and consideration of follow-up imaging. Continue your other follow up including cardiology and urology regarding kidney mass. Discuss with urologist regarding lung nodule. Discharge Date/Time: 12/31/19 20:51 Sign Out Sign Out Data: Patient Sign Out occurred on 12/31/19 at 19:00. Patient's care was discussed, and [facility] to [facility]. Coding Level of Care Code ED Food Service Representative for Chg Fwd Exam Comprehensive
[2019-12-31 17:14] LABS: Basophils # 0.1 10^3/uL (0.0-0.1); Basophils % 0.8 %; Eosinophils # 0.2 10^3/uL (0.0-0.8); Hemoglobin 11.1 g/dL (11.5-15.3); Lymphocytes # 1.8 10^3/uL (0.8-4.8); Lymphocytes % 23.5 %; Mean Corpuscular HGB Conc 32.6 g/dL (30.0-36.0); Mean Corpuscular Hemoglobin 31.5 pg (28.0-34.0); Mean Corpuscular Volume 96.6 fL (81-99); Mean Platelet Volume 10.3 fL (7.4-10.4); Monocytes # 0.8 10^3/uL (0.2-0.9); Monocytes % 10.8 %; Neutrophils # 4.7 10^3/uL (1.8-7.7); Neutrophils % 62.5 %; Nucleated Red Blood Cells % 0 %; Platelet Count 290 10^3/cmm (130-400); Red Blood Count 3.52 10^6/uL (4.1-5.3); Red Cell Distribution Width 13.6 % (12.1-15.1); White Blood Count 7.6 10^3/uL (4.0-10.0)
[2019-12-31 17:31] LABS: Alanine Aminotransferase 37 U/L (0-33); Albumin Level 3.6 g/dL (3.5-5.2); Alkaline Phosphatase 114 IU/L (35-105); Anion Gap 16.3 (5-19); Aspartate Amino Transferase 48 U/L (0-32); Blood Urea Nitrogen 18 mg/dL (8-23); Calcium 8.9 mg/dL (8.5-10.5); Carbon Dioxide 29 mmol/L (22-29); Chloride 97 mmol/L (98-107); Glucose 305 mg/dL (65-115); Lipase 44 U/L (13-60); Osmolality Calculated 294 mOsm/kg (285-295); Potassium 4.3 mmol/L (3.5-5.1); Sodium 138 mmol/L (136-145); Total Bilirubin 0.2 mg/dL (0.15-1.2); Total Protein 6.6 g/dL (6.6-8.7)
[2019-12-31 17:34] LABS: Troponin(5th) Baseline 25 ng/mL (0-10)
[2019-12-31 18:37] LABS: Digoxin 0.9 ng/mL (0.6-1.2)
[2019-12-31 18:51] LABS: Add Urine Microscopic? YES; Bilirubin Urine Neg (NEGATIVE); Blood Urine Neg (Negative); Glucose Urine UA Norm (Normal); Ketones Urine Negative (Negative); Leukocyte Esterase Urine Negative (Negative); Nitrate Urine Negative (Negative); Protein Urine 2+ (Negative); Urine Appearance Hazy (CLEAR); Urine Color Yellow (Yellow); Urobilinogen Urine Norm (Negative); pH Urine 5 (5-7)
--- NOTE | 2019-12-31 18:53 | ECG_ITS ---
Measurements Intervals [place] Rate: 80 P: 22 IA: 226 QRS: -69 QRSD: 146 T: 15 QT: 429 QTc: 496 SINUS RHYTHM WITH FIRST DEGREE AV BLOCK RIGHT BUNDLE BRANCH BLOCK LEFT ANTERIOR FASCICULAR BLOCK MINIMAL VOLTAGE CRITERIA FOR LVH, CONSIDER NORMAL VARIANT POSSIBLE SEPTAL MYOCARDIAL INFARCTION , OF INDETERMINATE AGE Compared to ECG 12/24/2019 04:48:03 Myocardial infarct finding now present Electronically Signed On 01-01-2020 14:19:07 CDT by Lucia Oakley M.D. [email or web address]
[2019-12-31 18:55] LABS: Add Urine Culture? No; Bacteria Urine 1+; Other Sediment, Urine 4
--- NOTE | 2019-12-31 19:05 | PC.NURSE ---
REPORT RECEIVED FROM [facility] CARE TRANSFERRED TO [facility]
[2019-12-31 19:08] LABS: Troponin 5 2HR 24.31 ng/mL (0-10)
[2019-12-31 19:24] LABS: Troponin 5 2HR Delta -0.69 ABS# (0-10)
--- NOTE | 2019-12-31 19:55 | P.HP_ITS ---
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 Patient is stating that her chest pain started about 2 days ago which got worse today, she was at rest when it started, chest pain is substernal, reproducible, changes on laying flat and taking deep breath, leaning forward aggravates her pain, radiates towards her left arm, neck and jaw, this chest pain is intermittent without any inciting or relieving factors, she is denying fever, productive cough, dysuria bowel changes. She is endorsing shortness of breath at rest and on exertion. She is not very active at home, recently she was treated for UTI and generalized weakness. Her tries to help her with daily activities. She gets panic attacks sometimes and shakes a lot. No r ecent sick contacts or traveling. She takes Lasix every other day currently she has not noticed any fluid retention. Diagnosis in the ER revealed normal hemodynamics, saturating well on 2 L nasal cannula, no significant changes on EKG, negative delta troponin denies signs of UTI Review of Systems Const: Reports: body aches and fatigue; Denies: fever or chills Eyes: Denies: change in vision ENMT: Denies: throat pain Card: Reports: chest pain, shortness of breath on exertion and shortness of breath when lying down; Denies: irregular heart rhythm or swelling of feet/ankles Resp: Reports: shortness of breath GI: Denies: abdominal pain or nausea : Denies: flank pain Musc: Reports: muscle cramps and muscle weakness Skin/Breast: Denies: rash or itching Neuro: Denies: headache Psych: Reports: anxiety, mood swings, panic attacks, hopelessness, change in appetite and irritability Endo: Denies: excessive urination [place]/Lymph: Denies: easy bruising All/Imm: Denies: hives Medications/Allergies Home Medications Medication Instructions Recorded Confirmed Last Taken Type albuterol sulfate 90 mcg/actuation 2 puff INHALATION Q6H PRN 09/09/19 12/31/19 12/31/19 History aerosol inhaler aspirin 325 mg tablet 325 mg PO BEDTIME tab 09/09/19 12/31/19 12/30/19 History furosemide 20 mg tablet 40 mg PO EVERY OTHER DAY tab 09/09/19 12/31/19 12/31/19 History insulin human U-100 NPH-regulr See Rx Instructions .ROUTE 09/09/19 12/31/19 10/11/19 History 70-30 mix 100 unit/mL subcutaneous .COMPLEX ml susp levothyroxine 175 mcg capsule 175 mcg PO DAILY cap 09/09/19 12/31/19 12/31/19 History metoprolol tartrate 50 mg tablet 100 mg PO BID tab 09/09/19 12/31/19 12/31/19 History pantoprazole 40 mg tablet,delayed 40 mg PO BID tab 09/09/19 12/31/19 12/31/19 History release potassium chloride 20 mEq 20 meq PO BID 09/09/19 12/31/19 12/31/19 History tablet,extended release digoxin 125 mcg (0.125 mg) tablet 125 mcg PO DAILY 10/02/19 12/31/19 12/31/19 History ergocalciferol (vitamin D2) 50,000 50,000 unit PO Q7D 10/02/19 12/31/19 12/29/19 History unit tablet ferrous gluconate 324 mg (37.5 mg 324 mg PO DAILY 10/02/19 12/31/19 10/11/19 History iron) tablet garlic 1,000 mg capsule 1,000 mg PO DAILY 10/02/19 12/31/19 10/11/19 History teriparatide 20 mcg/dose (600 20 mcg SUBCUT DAILY 10/02/19 12/31/19 12/31/19 History mcg/2.4 mL) subcutaneous pen injector Liver Aid 2 tab PO DAILY 10/12/19 12/31/19 Unknown History acetaminophen [Arthritis Pain 650 mg PO PRN PRN 10/12/19 12/31/19 Unknown History Reliever] albuterol sulfate 2.5 mg INHALATION Q4H PRN 10/12/19 12/31/19 Unknown History atorvastatin [Lipitor] 40 mg PO DAILY 10/12/19 12/31/19 12/30/19 History black cohosh 80 mg PO DAILY 10/12/19 12/31/19 Unknown History carica papaya [Papaya Enzyme] 4 tab PO PRN 10/12/19 12/31/19 Unknown History chlorpheniramine maleate 4 mg PO TID 10/12/19 12/31/19 12/31/19 History [ChlorTabs] cholecalciferol (vitamin D3) 1,000 unit PO DAILY 10/12/19 12/31/19 12/30/19 H istory [Vitamin D3] cranberry 2 tab PO QAM 10/12/19 12/31/19 12/31/19 History cyanocobalamin (vitamin B-12) 1,000 mcg PO DAILY 10/12/19 12/31/19 12/31/19 History [Vitamin B-12] diphenhydramine HCl [Benadryl] 25 mg PO PRN PRN 10/12/19 12/31/19 Unknown History docusate sodium [Stool Softener] 100 mg PO BID PRN 10/12/19 12/31/19 Unknown History loperamide [Anti-Diarrheal 2 - 4 mg PO DIRECTED 10/12/19 12/31/19 10/11/19 History (loperamide)] loratadine 20 mg PO DAILY 10/12/19 12/31/19 12/31/19 History magnesium L-lactate [Magtab] 84 mg PO BID 10/12/19 12/31/19 10/11/19 History methylsulfonylmethane [MSM] 1,000 mg PO BID 10/12/19 12/31/19 Unknown History nitroglycerin [Nitrostat] 0.4 mg SUBLINGUAL Q5M PRN 10/12/19 12/31/19 Unknown History omega 4-ong-xaj-fish oil [Ultra 2 cap PO DAILY 10/12/19 12/31/19 12/31/19 History [place]-3] ondansetron HCl [Zofran] 4 mg PO DAILY PRN 10/12/19 12/31/19 Unknown History pantothenic acid (vit B5) 500 mg PO DAILY 10/12/19 12/31/19 12/31/19 History pyridoxine (vitamin B6) [Vitamin 100 mg PO DAILY 10/12/19 12/31/19 12/31/19 History B-6] riboflavin (vitamin B2) [Vitamin 100 mg PO DAILY 10/12/19 12/31/19 Unknown History B-2] vitamin E 400 unit PO DAILY 10/12/19 12/31/19 12/31/19 History zinc 50 mg PO DAILY 10/12/19 12/31/19 12/26/19 History aripiprazole 5 mg tablet 5 mg PO QAM #30 tab 11/03/19 12/31/19 12/31/19 Rx buspirone 10 mg tablet 10 mg PO BID #60 tab 11/03/19 12/31/19 12/31/19 Rx duloxetine 30 mg capsule,delayed 30 mg PO QAM #30 cap 11/03/19 12/31/19 12/31/19 Rx release duloxetine 60 mg capsule,delayed 60 mg PO QAM #30 cap 11/03/19 12/31/19 12/31/19 Rx release hydrocodone 5 mg-acetaminophen 325 1 tab PO Q6H PRN 30 Days #120 tab 11/27/19 12/31/19 12/27/19 Rx mg tablet hydralazine 25 mg tablet 25 mg PO TID #270 tab 12/22/19 12/31/19 12/31/19 Rx tramadol 100 mg PO QID PRN 5 Days #20 tab 12/26/19 12/31/19 12/28/19 Rx amlodipine 5 mg PO DAILY 12/31/19 12/31/19 12/31/19 History amlodipine 10 mg PO DAILY 12/31/19 12/31/19 12/30/19 History ciprofloxacin 500 mg PO BID 12/31/19 12/31/19 12/31/19 History insulin lispro [Admelog U-100 See Rx Instructions .ROUTE .COMPLEX 12/31/19 12/31/19 12/31/19 14:25 History Insulin lispro] tuberculin PPD [Aplisol] See Rx Instructions .ROUTE .COMPLEX 12/31/19 12/31/19 Unknown History Allergies Allergy/AdvReac Type Severity Reaction Status Date / Time adhesive tape Allergy rash Verified 11/27/19 08:43 cinnamon Allergy sinus Verified 11/27/19 08:43 codeine Allergy unknown Verified 11/27/19 08:43 cedar Allergy sinus Uncoded 11/27/19 08:43 pine Allergy sinus Uncoded 11/27/19 08:43 PFSH Acute PFSH: Medical History Anxiety and depression Cholecystectomy planned Chronic combined systolic and diastolic CHF (congestive heart failure) COPD (chronic obstructive pulmonary disease) Oxygen dependent, 2 L at baseline Encounter for long-term opiate analgesic use Hyperlipidemia Hypertension Hypothyroidism Left renal mass Liver cirrhosis Low back pain of over 3 months duration Morbid obesity Opioid contract exists Recurrent UTI Urgency incontinence Surgical History History of cardiac cath History of hysterectomy History of knee replacement History of thyroid surgery Family History Other CAD (coronary artery disease) Cancer Denies family history of Anesthesia complication Bleeding disorder Social History Smoking and tobacco status: former smoker Quit status (tobacco): has quit using tobacco Year quit tobacco: 2005 Second hand smoke exposure: No Alcohol intake: unknown Adopted: No Caregiver/support person: No Lives independently: No Household members: spouse Marital status: Current occupational status: retired History of recent travel: No Current gender identity: Female Vitals/I&O/Wt Last Vital Signs Temp 98.4 F 12/31/19 16:17 Pulse 81 12/31/19 19:10 Resp 16 12/31/19 19:10 BP 144/79 12/31/19 19:10 Pulse Ox 99 12/31/19 19:10 Weight last 48 hrs Weight 108.862 kg Physical Exam Narrative: EXAM NARRATIVE: Head to toe examination Patient is very emotional currently crying in the room Reproducible chest pain, normal hemodynamics S1, S2 no active signs of heart failure No JVD noted Abdomen soft, distended, bowel sound present nontender Lower extremity no signs of edema Awake alert oriented x3 GCS 15, no neurological focal sign Patient is very emotional and currently depressed without any suicidal ideation EOMI, PERRLA Pertinent negatives Denies suicidal ideation No active signs of heart failure No active chest pain, No radial radial delay Data : 12/31/19 16:43 12/31/19 16:43 A&P Assessment and plan (1) Unstable angina: Status: Acute (2) Morbid obesity: Status: Acute (3) Hypertension: Status: Acute (4) COPD (chronic obstructive pulmonary disease): Status: Acute (5) Chronic post-traumatic stress disorder (PTSD): Status: Chronic (6) Major depressive disorder, recurrent, severe with psychotic features: Status: Chronic Additional A&P Information Unstable angina Multiple risk factors for coronary disease such as obesity, former smoker, hypothyroidism, hypertension, dyslipidemia, recent echo revealed preserved ejection fraction Currently chest pain-free, her chest pain is reproducible, troponin 2 hour negative delta, EKG does not show any ischemic or infarctive changes, We will order Lexiscan stress test to rule out coronary ischemia Does not need ACS protocol at this point No leg swelling noticed, will order PE work-up with CTA chest, her d-dimer was high in September, would not repeat it Depression with generalized weakness Patient is stating that at home her is mostly trying to help her with daily activities, she is taking multivitamins and antidepressants No suicidal or homicidal ideation Hypothyroidism: TSH done 2 weeks ago was 0.3 Continue levothyroxine Preserved ejection fraction heart failure without exacerbation: Patient takes Lasix every other day, currently not in any active fluid overloaded state, Morbid obesity, oxygen dependent, counseled patient to avoid opioids to decrease hypercapnic hypoxic respiratory failure exacerbation Full code DVT prophylaxis: Heparin N.p.o. 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
--- NOTE | 2019-12-31 20:31 | PC.NURSE ---
PATIENT GIVEN SANDWICH AND WATER PER HOSPITALIST APPROVAL.
--- NOTE | 2019-12-31 20:56 | CTR_ITS ---
PROCEDURE INFORMATION: Exam: CT Angiography Chest With Contrast Exam date and time: 12/31/2019 9:00 PM Age: 69 years old Clinical indication: Shortness of breath; Left-sided chest pain TECHNIQUE: Imaging protocol: Computed tomographic angiography of the chest with intravenous contrast. 3D rendering: MIP and/or 3D reconstructed images were created by the technologist. Radiation optimization: All CT scans at this facility use at least one of these dose optimization techniques: automated exposure control; mA and/or kV adjustment per patient size (includes targeted exams where dose is matched to clinical indication); or iterative reconstruction. Contrast material: VISI 320; Contrast volume: 95 ml; Contrast route: IV; COMPARISON: CTA Chest-Pulmonary Emb [id number] 10/24/2018 3:19 AM RADIATION DOSE METRICS: Total DLP: 588.45 mGy-cm FINDINGS: Pulmonary arteries: Normal. No pulmonary emboli. Aorta: Unremarkable. No aortic aneurysm. No aortic dissection. Thyroid: Coarse calcifications in the right thyroid lobe without a visible nodule. No follow-up recommended. Lungs: 5 mm nodule in the left lower lobe, image 337. Calcified granuloma in the left upper lobe. Pleural space: Unremarkable. No pneumothorax. No pleural effusion. Heart: Unremarkable. No cardiomegaly. No pericardial effusion. Lymph nodes: Calcified mediastinal and hilar lymph nodes. Gallbladder and bile ducts: Cholecystectomy. Spleen: Calcified granulomas in the spleen. Kidneys and ureters: Small benign left renal cyst. Bones/joints: Scoliosis. No compression fracture. Soft tissues: Unremarkable. CT/CT angio chest PE protcl [id number] IMPRESSION: 1. No evidence for pulmonary embolus. 2. 5 mm left lower lobe nodule. For patients at low risk (minimal or absent history of smoking and of other known risk factors), no routine follow-up is indicated. For patients at high risk (history of smoking or of other known risk factors), consider optional CT at 12 months. (Erin et al., Fleischner Society, 2017) COMMENTS: Consistent with the [employer]'s Incidental Findings Committee white paper (J Am Cesar Radiol 2018): Any incidental cystic renal lesion classified in this report as too small to characterize or simple appearing is likely a benign cyst. No follow-up imaging is recommended for these lesions per consensus recommendations based on imaging criteria. Radiation Dose CTDIVOL = (mGy): DLP = 588.45 (mGy-cm)
[2019-12-31] MEDS: iodixanol 320 mg/mL 100mL Btl IV (21:36)
[2019-12-31] MEDS: heparin 5,000 unit/mL INJ 1 mL 5000 UNIT SUBCUT (21:52)
[2019-12-31 22:16] LABS: Glucose Point of Care 290 mg/dL (70-110)
--- NOTE | 2019-12-31 22:53 | ECG_ITS ---
Measurements Intervals [place] Rate: 78 P: 45 HI: 238 QRS: -86 QRSD: 168 T: 43 QT: 450 QTc: 513 SINUS RHYTHM WITH FIRST DEGREE AV BLOCK RIGHT BUNDLE BRANCH BLOCK [120+ ms QRS DURATION, UPRIGHT V1, 40+ ms S IN I/aVL/V4/V5/V6] LEFT ANTERIOR FASCICULAR BLOCK [QRS AXIS <= -45, QR IN I, RS IN II] POSSIBLE ANTEROSEPTAL MYOCARDIAL INFARCTION [30 ms Q WAVE IN V1-V4], OF INDETERMINATE AGE Compared to ECG 12/24/2019 04:48:03 Myocardial infarct finding now present Left ventricular hypertrophy no longer present Electronically Signed On 01-01-2020 14:18:43 CDT by Lucia Oakley M.D. [email or web address]
[2019-12-31 23:03] LABS: Troponin 5 6HR 23.97 ng/mL (0-10)
[2019-12-31 23:34] LABS: Troponin 5 6HR Delta -1.03 ng/L (0-12)
[2019-12-31] MEDS: albuterol 8 gm MDI 2 PUFF INHALATION (23:55)
[2020-01-01] VITALS (8 sets, daily range): BP systolic 137–163; BP diastolic 54–78; PULSE 84–94; RESP 16–20; TEMP 36.7–37; O2SAT 94–100
[2020-01-01] MEDS: HYDROcodone-acetaminophen 5-325 mg Tablet 1 TAB PO (04:41)
[2020-01-01] MEDS: duloxetine 30 mg Capsule PO (04:41)
[2020-01-01] MEDS: heparin 5,000 unit/mL INJ 1 mL 5000 UNIT SUBCUT ×2 (04:42→13:51)
--- NOTE | 2020-01-01 06:00 | ECG_ITS ---
NAME OF STUDY: LEXISCAN SESTAMIBI STRESS TEST INDICATION: UNSTABLE ANGINA PROCEDURE: At the baseline, the blood pressure was 148/80 mmHg with a heart rate of 84 bpm. The electrocardiogram showed normal sinus rhythm, right bundle branch block. Left anterior fascicular block.Left ventricular hypertrophy by voltage criteria. The Lexiscan was infused over a period of 20 seconds. A total of 0.4 milligrams of Lexiscan was infused. The stress phase was continued for a total of 5 minutes. Heart rate at the end of the stress phase was 90 bpm with a blood pressure 132/57 mmHg. The EKG at the peak infusion revealed sinus rhythm with no significant ST-T wave changes. Sestamibi was injected 20 seconds after the Lexiscan infusion. Blood pressure at the end of the recovery phase was 143/74 mmHg with a heart rate of 91 beats per minute. CONCLUSION: 1. No significant EKG changes with the LexiScan infusion. 2. No LexiScan induced chest pain or cardiac arrhythmia. 3. Normal blood pressure and heart rate response. 4. Sestamibi/sestamibi perfusion scan pending; see separate report. Electronically Signed On 01-01-2020 12:41:13 CDT by Lucia Oakley M.D. [email or web address]
[2020-01-01 06:27] LABS: Glucose Point of Care 286 mg/dL (70-110)
[2020-01-01 06:29] LABS: Anion Gap 14.8 (5-19); Blood Urea Nitrogen 19 mg/dL (8-23); Carbon Dioxide 30 mmol/L (22-29); Chloride 99 mmol/L (98-107); Glucose 307 mg/dL (65-115); Osmolality Calculated 298 mOsm/kg (285-295); Potassium 3.8 mmol/L (3.5-5.1); Sodium 140 mmol/L (136-145)
[2020-01-01] MEDS: regadenoson 0.4 Mg/5 ml Syringe IVP (08:00)
[2020-01-01] MEDS: levothyroxine 150 mcg Tablet PO (09:55)
[2020-01-01] MEDS: BuSPIRONE 10 mg Tablet PO (09:55)
[2020-01-01] MEDS: hyDRALAzine 25 mg Tablet PO ×2 (09:55→15:23)
[2020-01-01] MEDS: amlodipine 10 mg Tablet PO (09:55)
[2020-01-01] MEDS: atorvastatin 40 mg Tablet PO (09:55)
[2020-01-01] MEDS: levothyroxine 25 mcg Tablet PO (09:55)
[2020-01-01] MEDS: pantoprazole DR 40 mg Tablet PO (09:55)
--- NOTE | 2020-01-01 13:00 | PM.DCS ---
Discharge Providers Date of Admission: 12/31/19 19:59 Date of Discharge: January 01, 2020 Attending Provider at Admission: Tim Robert MD Attending Provider at Discharge: Milton Blandon Primary Care Provider: Jada Gandhi MD Diagnoses at Discharge Discharge Diagnosis (1) Chest pain: Status: Acute Qualifiers: Chest pain type: unspecified Qualified Code(s): R07.9 - Chest pain, unspecified (2) Lung nodule: Status: Acute Problem details: Incidentally noted 5 mm left lower lobe nodule is seen, and finding discussed with her. Please discuss with her and consider follow up imaging also in the setting of known renal mass. (3) Morbid obesity: Status: Acute (4) Hypertension: Status: Acute (5) COPD (chronic obstructive pulmonary disease): Status: Acute Problem details: Oxygen dependent, 2 L at baseline (6) Chronic post-traumatic stress disorder (PTSD): Status: Chronic (7) Major depressive disorder, recurrent, severe with psychotic features: Status: Chronic Reason for Visit Reason for Visit: Reason For Visit: CHEST PAIN Hospital Course Hospital Course: Pleasant 69-year-old lady, currently undergoing rehabilitation at [facility], with history of COPD, on chronic 2 L oxygen by nasal cannula at baseline, DM 2, chronic kidney disease stage III, chronic CHF with preserved ejection fraction, morbid obesity, hypothyroidism, panic disorder, nightmares, depression anxiety was placed in observation after experiencing episodes of chest pain. She describes them as short lasting, like a fist being pushed into the left side of her chest. She does not have significant cough, does say that she coughed once . It does not feel like heartburn. Chest pain is not positional. She does say that it is reproducible with palpation. Troponin series and EKG are not suggestive of acute IL. CTA performed on admission, without finding of PE, pneumonia, or other acute abnormality. Incidentally noted 5 mm left lower lobe nodule is seen, and finding discussed with her. Please discuss with her and consider follow up imaging also in the setting of known renal mass. She was assessed by stress testing which did not reveal any active ischemia. Discussed all results with her. She is currently asymptomatic. It appears this is more likely chest wall pain, for which she may use Tylenol, topical ointments, etc. She may resume activity as usual, however, discussed with her in case of in the future recurrence of pain not reproducible, heaviness, shortness of breath, or other unusual symptoms to still seek medical attention. She has an appointment for follow-up with Dr. Coronel in office. Physical Exam Const: COMMON NORMALS: no apparent distress and oriented x3 NUTRITIONAL APPEARANCE: obese HENMT: COMMON NORMALS: oropharynx normal Neck/C-Spine: COMMON NORMALS: no JVD Resp: COMMON NORMALS: normal respiratory effort and clear to auscultation bilaterally AUSCULTATION: clear to auscultation bilaterally Cardio: COMMON NORMALS: no JVD, regular rhythm, S1 normal heart sound, S2 normal heart sound and no murmurs RHYTHM: regular rhythm HEART SOUNDS: S1 normal and S2 normal GI: COMMON NORMALS: normal to inspection, nondistended, normoactive bowel sounds, soft to palpation and non-tender PALPATION: Yes soft Extremity: COMMON NORMALS: no joint enlargement and no pedal edema Neuro: COMMON NORMALS: oriented x3 and moves all extremities Skin: COMMON NORMALS: no rashes or lesions noted GENERAL SKIN EXAM: no rashes or lesions noted Discharge Data Data Completed and Pending: Completed Studies During Hospitalization Category Date Time Status CTA PE [CT angio chest PE protcl [id number]] Stat Cat Scan 12/31/19 20:56 Completed Sestamibi Stress Test Request Routi ne Exams 01/01/20 06:00 Completed XR chest 1V teetee ble [id number] Stat Exams 12/31/19 16:52 Completed NM artemio perf SPECT r/s* [id number] Routin e Nuc Med 01/01/20 21:14 Completed Labs from last 24 hours 01/01/20 01/01/20 12/31/19 06:08 05:10 22:35 WBC RBC Hgb Hct MCV MCH MCHC RDW Plt Count MPV Neut % (Auto) Lymph % (Auto) Garvin % (Auto) Eos % (Auto) Baso % (Auto) Neut # (Auto) Lymph # (Auto) Garvin # (Auto) Eos # (Auto) Baso # (Auto) Nucleated RBC % (a uto) Nucleated RBCs # Sodium 140 Potassium 3.8 Chloride 99 Carbon Dioxide 30 H Anion Gap 14.8 BUN 19 Creatinine 1.1 H Glucose 307 H POC Glucose 286 Calculated Osmolal ity 298 H Calcium 9.0 Total Bilirubin AST ALT Alkaline Phosphata se Troponin I 6 Hour 23.97 H Troponin I Hi Sens Del -1.03 L Troponin T Baselin e Troponin T 120 Min [place] Troponin T Total Protein Albumin Globulin Lipase Urine Color Urine Appearance Urine pH Ur Specific Gravit y Urine Protein Urine Glucose (UA) Urine Ketones Urine Blood Urine Nitrate Urine Bilirubin Urine Urobilinogen Ur Leukocyte Dorota ase Urine RBC Urine WBC Ur Squamous Epith Cells Urine Bacteria Digoxin 12/31/19 12/31/19 12/31/19 21:58 18:33 17:52 WBC RBC Hgb Hct MCV MCH MCHC RDW Plt Count MPV Neut % (Auto) Lymph % (Auto) Garvin % (Auto) Eos % (Auto) Baso % (Auto) Neut # (Auto) Lymph # (Auto) Garvin # (Auto) Eos # (Auto) Baso # (Auto) Nucleated RBC % (a uto) Nucleated RBCs # Sodium Potassium Chloride Carbon Dioxide Anion Gap BUN Creatinine Glucose POC Glucose 290 Calculated Osmolal ity Calcium Total Bilirubin AST ALT Alkaline Phosphata se Troponin I 6 Hour Troponin I Hi Sens Del Troponin T Baselin e Troponin T 120 Min [place] 24.31 H Delta Troponin T -0.69 L Total Protein Albumin Globulin Lipase Urine Color Yellow Urine Appearance Hazy A Urine pH 5 Ur Specific Gravit y 1.020 Urine Protein 2+ H Urine Glucose (UA) Norm Urine Ketones Negative Urine Blood Neg Urine Nitrate Negative Urine Bilirubin Neg Urine Urobilinogen Norm Ur Leukocyte Dorota ase Negative Urine RBC None Urine WBC None Ur Squamous Epith Cells None Urine Bacteria 1+ H Digoxin 12/31/19 12/31/19 12/31/19 16:43 16:43 16:43 WBC RBC Hgb Hct MCV MCH MCHC RDW Plt Count MPV Neut % (Auto) Lymph % (Auto) Garvin % (Auto) Eos % (Auto) Baso % (Auto) Neut # (Auto) Lymph # (Auto) Garvin # (Auto) Eos # (Auto) Baso # (Auto) Nucleated RBC % (a uto) Nucleated RBCs # Sodium 138 Potassium 4.3 Chloride 97 L Carbon Dioxide 29 Anion Gap 16.3 BUN 18 Creatinine 1.2 H Glucose 305 H POC Glucose Calculated Osmolal ity 294 Calcium 8.9 Total Bilirubin 0.2 AST 48 H ALT 37 H Alkaline Phosphata se 114 H Troponin I 6 Hour Troponin I Hi Sens Del Troponin T Baselin e 25 H Troponin T 120 Min [place] Troponin T Total Protein 6.6 Albumin 3.6 Globulin 3.0 Lipase 44 Urine Color Urine Appearance Urine pH Ur Specific Gravit y Urine Protein Urine Glucose (UA) Urine Ketones Urine Blood Urine Nitrate Urine Bilirubin Urine Urobilinogen Ur Leukocyte Dorota ase Urine RBC Urine WBC Ur Squamous Epith Cells Urine Bacteria Digoxin 0.9 12/31/19 16:43 WBC 7.6 RBC 3.52 L Hgb 11.1 L Hct 34.0 L MCV 96.6 MCH 31.5 MCHC 32.6 RDW 13.6 Plt Count 290 MPV 10.3 Neut % (Auto) 62.5 Lymph % (Auto) 23.5 Garvin % (Auto) 10.8 Eos % (Auto) 2.0 Baso % (Auto) 0.8 Neut # (Auto) 4.7 Lymph # (Auto) 1.8 Garvin # (Auto) 0.8 Eos # (Auto) 0.2 Baso # (Auto) 0.1 Nucleated RBC % (a uto) 0 Nucleated RBCs # 0.0 Sodium Potassium Chloride Carbon Dioxide Anion Gap BUN Creatinine Glucose POC Glucose Calculated Osmolal ity Calcium Total Bilirubin AST ALT Alkaline Phosphata se Troponin I 6 Hour Troponin I Hi Sens Del Troponin T Baselin e Troponin T 120 Min [place] Troponin T Total Protein Albumin Globulin Lipase Urine Color Urine Appearance Urine pH Ur Specific Gravit y Urine Protein Urine Glucose (UA) Urine Ketones Urine Blood Urine Nitrate Urine Bilirubin Urine Urobilinogen Ur Leukocyte Dorota ase Urine RBC Urine WBC Ur Squamous Epith Cells Urine Bacteria Digoxin Vitals: Last Vital Signs Temp 98.0 F 01/01/20 10:52 Pulse 94 01/01/20 12:51 Resp 16 01/01/20 12:51 BP 137/72 01/01/20 10:52 Pulse Ox 94 01/01/20 12:51 Discharge Plan Discharge Patient Disposition: Xfer [facility] Condition: Stable Prescriptions: Continued digoxin [Digox] 125 mcg (0.125 mg) tablet 125 mcg PO DAILY RF: 0 ergocalciferol (vitamin D2) 50,000 unit tablet 50,000 unit PO Q7D RF: 0 Forteo 20 mcg/dose - 600 mcg/2.4 mL pen injector 20 mcg SUBCUT DAILY RF: 0 garlic 1,000 mg capsule 1,000 mg PO DAILY RF: 0 ferrous gluconate 324 mg (37.5 mg iron) tablet 324 mg PO DAILY RF: 0 aspirin 325 mg tablet 325 mg PO BEDTIME RF: 0 Novolin 70/30 U-100 Insulin 100 unit/mL (70-30) suspension See Rx Instructions .ROUTE .COMPLEX RF: 0 furosemide [Lasix] 20 mg tablet 40 mg PO EVERY OTHER DAY RF: 0 metoprolol tartrate 50 mg tablet 100 mg PO BID RF: 0 buspirone 10 mg tablet 10 mg PO BID Qty: 60 RF: 1 duloxetine [Cymbalta] 60 mg capsule,delayed release(DR/EC) 60 mg PO QAM Qty: 30 RF: 1 duloxetine [Cymbalta] 30 mg capsule,delayed release(DR/EC) 30 mg PO QAM Qty: 30 RF: 1 Abilify 5 mg tablet 5 mg PO QAM Qty: 30 RF: 1 levothyroxine 175 mcg capsule 175 mcg PO DAILY RF: 0 pantoprazole [Protonix] 40 mg tablet,delayed release (DR/EC) 40 mg PO BID RF: 0 potassium chloride 20 mEq tablet extended release 20 meq PO BID RF: 0 albuterol sulfate [ProAir HFA] 90 mcg/actuation HFA aerosol inhaler 2 puff INHALATION Q6H PRN (Reason: Shortness Of Breath) RF: 0 hydrocodone-acetaminophen 5-325 mg tablet 1 tab PO Q6H PRN (Reason: pain) 30 Days Qty: 120 RF: 0 hydralazine 25 mg tablet 25 mg PO TID Qty: 270 RF: 3 atorvastatin [Lipitor] 40 mg Tablet 40 mg PO DAILY RF: 0 pantothenic acid (vit B5) 500 mg Tablet 500 mg PO DAILY RF: 0 chlorpheniramine maleate [ChlorTabs] 4 mg Tablet 4 mg PO TID RF: 0 carica papaya [Papaya Enzyme] Tablet 4 tab PO PRN RF: 0 albuterol sulfate 2.5 mg /3 mL (0.083 %) Solution For Nebulization 2.5 mg INHALATION Q4H PRN (Reason: Shortness Of Breath) RF: 0 riboflavin (vitamin B2) [Vitamin B-2] 100 mg Tablet 100 mg PO DAILY RF: 0 ondansetron HCl [Zofran] 4 mg Tablet 4 mg PO DAILY PRN (Reason: Nausea) RF: 0 loperamide [Anti-Diarrheal (loperamide)] 2 mg Tablet 2 - 4 mg PO DIRECTED RF: 0 cyanocobalamin (vitamin B-12) [Vitamin B-12] 1,000 mcg Tablet 1,000 mcg PO DAILY RF: 0 acetaminophen [Arthritis Pain Reliever] 650 mg Tablet Extended Release 650 mg PO PRN PRN (Reason: Pain) RF: 0 diphenhydramine HCl [Benadryl] 25 mg Capsule 25 mg PO PRN PRN (Reason: ALLERGIES) RF: 0 nitroglycerin [Nitrostat] 0.4 mg Tablet, Sublingual 0.4 mg SUBLINGUAL Q5M PRN (Reason: Chest Pain) RF: 0 docusate sodium [Stool Softener] 100 mg Capsule 100 mg PO BID PRN (Reason: Constipation) RF: 0 zinc 50 mg Tablet 50 mg PO DAILY RF: 0 pyridoxine (vitamin B6) [Vitamin B-6] 100 mg Tablet 100 mg PO DAILY RF: 0 vitamin E 400 unit Capsule 400 unit PO DAILY RF: 0 loratadine 10 mg Tablet 20 mg PO DAILY RF: 0 methylsulfonylmethane [MSM] 1,000 mg Tablet 1,000 mg PO BID RF: 0 magnesium L-lactate [Magtab] 84 mg tablet extended release 84 mg PO BID RF: 0 cholecalciferol (vitamin D3) [Vitamin D3] 25 mcg (1,000 unit) Tablet 1,000 unit PO DAILY RF: 0 omega 5-ihz-daj-fish oil [Ultra [place]-3] 500-1,000 mg Capsule 2 cap PO DAILY RF: 0 Liver Aid 2 tab PO DAILY RF: 0 cranberry 2 tab PO QAM RF: 0 black cohosh 40 mg Tablet 80 mg PO DAILY RF: 0 tramadol 50 mg tablet 100 mg PO QID PRN (Reason: pain) 5 Days Qty: 20 RF: 1 Aplisol 5 tub. unit /0.1 mL Solution See Rx Instructions .ROUTE .COMPLEX RF: 0 ciprofloxacin 500 mg/5 mL Suspension,Microcapsule Recon 500 mg PO BID RF: 0 amlodipine 10 mg Tablet 10 mg PO DAILY RF: 0 Admelog U-100 Insulin lispro 100 unit/mL Solution See Rx Instructions .ROUTE .COMPLEX RF: 0 amlodipine 10 mg tablet 5 mg PO DAILY RF: 0 Referrals: Keisha Coronel MD [Physician] - (As scheduled. ) Jada Gandhi MD [Primary Care Provider] - 4-7 days [facility] [Provider Group] - 4-7 days (Renal mass, lung nodule) Discharge Diet: Usual diet Discharge Activity: Resume usual activity, Increase activity as tolerated and Oxygen as instructed Activity Restrictions/Additional Instructions: Tylenol as needed for pain of chest wall. Warm or cold compress, Bengay or icy hot. If you experience chest pain or heaviness which is persistent, not reproducible on palpation, worsening/progressive shortness of breath, or other abnormal symptoms, please seek medical attention without delay. Please discuss with your primary care doctor regarding left lung nodule (also in relation to known renal mass) and consideration of follow-up imaging. Discharge Attestations Time Spent in Discharge Care*: greater than 30 min Status at Discharge: Cognitive status at discharge: cognitively intact, Behavioral status at discharge: cooperative, Quality Metrics Clinical Quality Measures During this hospital stay, did patient experience: None Coding Level of Care Code Acute Sugar Presser for Dougie Beauchampd Diagnoses Chest pain R07.9 Chest pain type: unspecified Lung nodule R91.1 Morbid obesity E66.01 Hypertension I10 COPD (chronic obstructive pulmonary disease) J44.9 Chronic post-traumatic stress disorder (PTSD) F43.12 Major depressive disorder, recurrent, severe with psychotic features F33.3
--- NOTE | 2020-01-01 17:31 | PC.RESP ---
Pulmonary Rehab information go patient for out patient .
--- NOTE | 2020-01-01 21:14 | NMCV_ITS ---
NM artemio perf SPECT r/s* [id number] Myesha Parker Age: 69 Gender: F : 1950 Exam Date: 01/01/2020 07:14 Ordering Phys: Tim Robert MD Technologist: RAINER Huizar Exam Location: [facility] Indications: CHEST PAIN STRESS TEST [facility] IMAGE PROTOCOL Rest/Stress 1 Lexiscan Day Radiopharmaceutical Dose (mCi) Administration Site Administered by Rest: Tc-99m 11.0 IV RAINER Thompson Sestamibi Stress:Tc-99m 33.0 IV RAINER Thompson Sestamibi Rest: 01-Jan-2020 60 Discovery 630 Stress: 01-Jan-2020 30 Discovery 630 0.4mg Lexiscan. Supine position only as patient was unable to lay prone. SPECT RESULTS Technical Quality: Good Raw Data Analysis: Breast attenuation Image Corrections: Patient motion artifact - motion correction applied to stress images. Summed Stress Score: 0 Summed Rest Score: 0 Summed Difference Score: 0 PERFUSION FINDINGS SPECT images demonstrate homogeneous tracer distribution throughout the myocardium. FUNCTIONAL RESULTS (calculated via Gated SPECT) Stress Image LV EF (%): 73 Stress EDV (mL):97 TID: 1.08 Stress ESV (mL):26 FUNCTIONAL FINDINGS: The left ventricle is normal in size. Transient Ischemia Dilatation of 1.1. There is normal left ventricular systolic function. The left ventricular ejection fraction is normal with a value of 73%. There is normal left ventricular wall thickening. Normal end-diastolic and end-systolic volumes IMPRESSIONS 1. Myocardial perfusion imaging is normal. 2. Overall left ventricular systolic function is normal without regional wall motion abnormalities. 3. The left ventricular ejection fraction is normal with a value of 73%. 4. This study suggests a low likelihood of angiographically significant coronary artery disease. Lucia Oakley MD (Electronically Signed) Final Date: 01 Jan 2020 12:34 S
== END 2020-01-01 16:50 | disposition skilled nursing facility (03) ==
LOC: ER 19:00 → MEDSURG 20:19
PROVIDERS: Family Medicine; Admitting Provider Internal Medicine; Emergency Provider Emergency Medicine; PCP Family Medicine; Visit Provider Internal Medicine
DX: I20.0 Unstable angina (principal); E66.01 Morbid (severe) obesity due to excess calories; Z68.39 Body mass index [BMI] 39.0-39.9, adult; I10 Essential (primary) hypertension; J44.9 Chronic obstructive pulmonary disease, unspecified; F43.12 Post-traumatic stress disorder, chronic; F33.3 Major depressive disorder, recurrent, severe with psychotic symptoms; R91.1 Solitary pulmonary nodule; Z79.82 Long term (current) use of aspirin; Z79.4 Long term (current) use of insulin; Z82.49 Family history of ischemic heart disease and other diseases of the circulatory system; Z87.891 Personal history of nicotine dependence; Z99.81 Dependence on supplemental oxygen
CPT/HCPCS: 12345; 36415; 36416; 71045; 71275; 78452; 80048; 80053; 80162; 81001; 82962; 83690; 84484; 85025; 93005; 93017; 94640; 96372; 99283; 99285; A9500; G0378; J1644; J2785; Q9967

== ENCOUNTER 2020-01-05 10:14 | Outpatient (CLI) | payer MEDICARE, SELFPAY ==
--- NOTE | 2020-01-05 09:30 | US_ITS ---
WS: [id number] RENAL ULTRASOUND HISTORY: LEFT RENAL MASS COMPARISON: 12/31/2019, 12/24/2019 TECHNIQUE: 2-D and color Doppler imaging of the kidney submitted. Right kidney: 11.5 cm x 6.2 cm x 5.9 cm. Normal echogenicity with no hydronephrosis or mass. Left kidney: 11.8 cm x 5.8 cm x 5.5 cm. Normal size kidney. Minimally complex mass exophytic from the LEFT mid kidney with a maximum diameter of 1.0 cm. No increase in size since CT of 12/24/2019. Stable in size since 04/18/2018. Aorta: Mild atherosclerosis. Poorly visualized. Urinary Bladder: Normal distention. US/US renal BI* [id number] IMPRESSION: 1. No change in the minimally complex cyst in the posterior mid LEFT kidney me asuring 1.0 cm in maximum. Stable in size and appearance since 04/18/2018. If fu rther follow-up is clinically thought necessary follow-up CT with contrast in o ne year would be most helpful. 2. No hydronephrosis.
== END 2020-01-05 10:15 | disposition home or self-care (01) ==
PROVIDERS: Visit Provider Urology
DX: N28.89 Other specified disorders of kidney and ureter (principal); N39.0 Urinary tract infection, site not specified; N39.41 Urge incontinence
CPT/HCPCS: 76770; 81001

== ENCOUNTER → 2020-01-08 08:03 | Outpatient (BNVA) | payer MEDICARE, SELFPAY | PROVIDERS: Visit Provider Nurse Practitioner Psychiatric/Mental Health | DX: F33.3 Major depressive disorder, recurrent, severe with psychotic symptoms (principal); F43.12 Post-traumatic stress disorder, chronic | CPT/HCPCS: 99212 ==

== ENCOUNTER → 2020-02-05 10:02 | Outpatient (BNVA) | payer MEDICARE, SELFPAY | PROVIDERS: PCP Family Medicine; Visit Provider Internal Medicine Rheumatology | DX: M19.90 Unspecified osteoarthritis, unspecified site (principal); Z79.899 Other long term (current) drug therapy; Z11.59 Encounter for screening for other viral diseases; Z11.1 Encounter for screening for respiratory tuberculosis; M81.0 Age-related osteoporosis without current pathological fracture; M79.7 Fibromyalgia; Z72.89 Other problems related to lifestyle; E55.9 Vitamin D deficiency, unspecified; M47.812 Spondylosis without myelopathy or radiculopathy, cervical region; M47.26 Other spondylosis with radiculopathy, lumbar region | CPT/HCPCS: 36415; 80076; 82306; 82565; 84550; 85025; 85651; 86140; 86431; 86480; 86704; 99214 ==

== ENCOUNTER 2020-02-06 14:33 | Outpatient (CLI) | payer MEDICARE, SELFPAY ==
--- NOTE | 2020-02-06 14:42 | XRR_ITS ---
PROCEDURE INFORMATION: Exam: XR Right Hand Exam date and time: 02/06/2020 3:48 PM Age: 69 years old Clinical indication: Condition or disease; Arthritis; Other: Inflammatory; Hand; Bilateral; Additional info: Inflammatory arthritis TECHNIQUE: Imaging protocol: XR Right hand. Views: 3 or more views. COMPARISON: No relevant prior studies available. FINDINGS: Bones/joints: A small bone spur seen in the proximal phalange of the 4th digit. The examination is negative for acute bony abnormalities. There is interphalangeal joint narrowing at multiple digits. These findings correspond to mild osteoarthritis Soft tissues: Normal. XR/XR hand RT min 3V* [id number] IMPRESSION: 1. No acute findings. 2. Mild osteoarthritis
--- NOTE | 2020-02-06 14:42 | XRR_ITS ---
PROCEDURE INFORMATION: Exam: XR Right Foot Complete Exam date and time: 02/06/2020 3:48 PM Age: 69 years old Clinical indication: Condition or disease; Arthritis; Other: Inflammatory; Bilateral; Additional info: Inflammatory arthritis TECHNIQUE: Imaging protocol: XR Right foot. Views: 3 or more views. COMPARISON: No relevant prior studies available. FINDINGS: Bones/joints: Normal. Soft tissues: Normal. XR/XR foot RT min 3V* [id number] IMPRESSION: No acute findings.
--- NOTE | 2020-02-06 14:42 | XRR_ITS ---
PROCEDURE INFORMATION: Exam: XR Left Hand Exam date and time: 02/06/2020 3:48 PM Age: 69 years old Clinical indication: Condition or disease; Arthritis; Other: Inflammatory; Hand; Bilateral; Additional info: Inflammatory arthritis TECHNIQUE: Imaging protocol: XR Left hand. Views: 3 or more views. COMPARISON: No relevant prior studies available. FINDINGS: Bones/joints: The narrowing of the interphalangeal articulations are seen consistent with mild osteoarthritis. Negative for acute bony abnormality Soft tissues: Normal. XR/XR hand LT min 3V* [id number] IMPRESSION: No acute findings.
--- NOTE | 2020-02-06 14:42 | XRR_ITS ---
PROCEDURE INFORMATION: Exam: XR Left Foot Complete Exam date and time: 02/06/2020 3:48 PM Age: 69 years old Clinical indication: Condition or disease; Arthritis; Other: Inflammatory; Bilateral; Additional info: Inflammatory arthritis TECHNIQUE: Imaging protocol: XR Left foot. Views: 3 or more views. COMPARISON: No relevant prior studies available. FINDINGS: Bones/joints: Negative for acute bony abnormality. Small bone spur inferior calcaneus Soft tissues: Normal. XR/XR foot LT min 3V* [id number] IMPRESSION: 1. No acute findings. 2. Small bone spur inferior calcaneus
== END 2020-02-06 14:34 | disposition home or self-care (01) ==
LOC: RAD 14:39
PROVIDERS: PCP Family Medicine; Visit Provider Internal Medicine Rheumatology
DX: M19.90 Unspecified osteoarthritis, unspecified site (principal); M19.041 Primary osteoarthritis, right hand; M77.32 Calcaneal spur, left foot
CPT/HCPCS: 73130; 73630

== ENCOUNTER → 2020-02-09 07:44 | Outpatient (BNVA) | payer MEDICARE, SELFPAY | PROVIDERS: PCP Family Medicine; Visit Provider Nurse Practitioner Psychiatric/Mental Health | DX: F43.12 Post-traumatic stress disorder, chronic (principal); Z79.899 Other long term (current) drug therapy; F33.41 Major depressive disorder, recurrent, in partial remission; J44.9 Chronic obstructive pulmonary disease, unspecified; E66.01 Morbid (severe) obesity due to excess calories | CPT/HCPCS: 99212 ==

== ENCOUNTER → 2020-02-12 11:04 | Outpatient (BNVA) | payer MEDICARE, SELFPAY | PROVIDERS: PCP Family Medicine; Visit Provider Anesthesiology | DX: M54.41 Lumbago with sciatica, right side (principal); M54.42 Lumbago with sciatica, left side; Z79.891 Long term (current) use of opiate analgesic | CPT/HCPCS: 99214 ==

== ENCOUNTER 2020-03-20 17:56 | Inpatient (IN) | payer MEDICARE, SELFPAY ==
[2020-03-20] VITALS (28 sets, daily range): BP systolic 89–143; BP diastolic 47–96; PULSE 57–124; RESP 16–21; TEMP 36.4–36.8; O2SAT 96–99; BMI 38.2
--- NOTE | 2020-03-20 18:35 | PC.NURSE ---
EKG done at 1830 and shown to ER doctor
--- NOTE | 2020-03-20 18:53 | ECG_ITS ---
[facility] Test Date: 2020-03-20 Pat Name: Myesha Parker Department: Room: Gender: Female Sign Painter: : 1950 Requested By: Matty Collins Order Number: [id number] Wilbur MD: Lucia Oakley M.D. Measurements Intervals [facility] Rate: 123 P: [place]: -1 QRS: 270 QRSD: 150 T: 47 QT: 391 QTc: 562 Interpretive Statements SINUS RHYTHM RIGHT AXIS DEVIATION [QRS AXIS > 100] RIGHT BUNDLE BRANCH BLOCK LEFT VENTRICULAR HYPERTROPHY AND ST-T CHANGE POSSIBLE SEPTAL MYOCARDIAL INFARCTION , OF INDETERMINATE AGE Compared to ECG 12/31/2019 23:27:45 Right-axis deviation now present Left ventricular hypertrophy now present ST (T wave) deviation now present Sinus rhythm no longer present First degree AV block no longer present Left anterior fascicular block no longer present Myocardial infarct finding still present Electronically Signed On 03-23-2020 12:31:08 CDT by Lucia Oakley M.D. [email or web address]
--- NOTE | 2020-03-20 18:53 | XRR_ITS ---
PROCEDURE INFORMATION: Exam: XR Chest, 1 View Exam date and time: 03/20/2020 6:56 PM Age: 69 years old Clinical indication: Chest pain; Type not specified; Additional info: Palpitations TECHNIQUE: Imaging protocol: XR of the chest Views: 1 view. COMPARISON: CR XR chest 1V portable [id number] 12/31/2019 5:07 PM FINDINGS: Lungs: Unremarkable. No consolidation. Pleural space: Unremarkable. No pleural effusion. No pneumothorax. Heart/Mediastinum: Unremarkable. No cardiomegaly. Bones/joints: Unremarkable. XR/XR chest 1V portable [id number] IMPRESSION: No acute findings.
--- NOTE | 2020-03-20 18:59 | ED_ITS ---
HPI - General Adult General: Chief complaint: General Medical Stated complaint: HIGH HR Time Seen by Provider: 03/20/20 18:22 History of Present Illness: HPI narrative: 69-year-old female, who last night noticed while she was sitting watching TV/eating dinner that her chest was pounding a little bit. She checked her heart rate and it was elevated. Is been elevated since that time. She has been more short of breath with this. She denies any overt chest pain. She turned her oxygen up at home which helped the shortness of breath some. She has history significant for COPD. Onset (ago): day(s) (1) Location: chest Radiation: non-radiation Severity: moderate Relieving factors: none Exacerbating factors: other (Exertion) Associated symptoms: Reports diaphoresis, dyspnea, palpitations and short of breath; Deny chest pain, cough, fevers/chills, headache(s), rash or vomiting Review of Systems Const: Reports: diaphoresis Eyes: Denies: change in vision ENMT: Denies: swelling of lips/tongue, bleeding gums, post nasal drip or sinus pain Card: Reports: palpitations; Denies: chest pain Resp: Reports: dyspnea GI: Denies: vomiting : Denies: dysuria or hematuria Musc: Reports: back pain; Denies: neck pain Skin/Breast: Denies: rash, pruritus or erythema Neuro: Denies: headache(s), dizziness, vertigo or seizure-like activity Psych: Denies: anxiety or auditory hallucinations PFSH ED PFSH: Medical History Anxiety and depression Cholecystectomy planned Chronic combined systolic and diastolic CHF (congestive heart failure) COPD (chronic obstructive pulmonary disease) Oxygen dependent, 2 L at baseline Encounter for long-term opiate analgesic use Fibromyalgia High risk medication use Hyperlipidemia Hypertension Hypothyroidism Immunization counseling Inflammatory arthritis Intermittent atrial fibrillation Left renal mass Liver cirrhosis Low back pain of over 3 months duration Morbid obesity She has limited activity tolerance and exertional dyspnea, which affects her ability to exercise and participate in physical activities. Opioid contract exists Osteoarthritis of knees, bilateral Polypharmacy Multiple medical conditions requiring medications as noted in the EMR/medication record. Recurrent UTI Urgency incontinence Surgical History History of cardiac cath History of hysterectomy History of knee replacement History of thyroid surgery Family History Other CAD (coronary artery disease) Cancer Denies family history of Anesthesia complication Bleeding disorder Social History Smoking and tobacco status: former smoker Quit status (tobacco): has quit using tobacco Year quit tobacco: 2005 Second hand smoke exposure: No Alcohol intake: unknown Adopted: No Caregiver/support person: No Lives independently: No Household members: spouse Marital status: Current occupational status: retired History of recent travel: No Current gender identity: Female Physical Exam Const: GENERAL APPEARANCE: well developed ORIENTATION/CONSCIOUSNESS: Yes oriented to person, Yes oriented to place and Yes oriented to time HENMT: COMMON NORMALS: normocephalic, external ears normal and Normal external nose present HEAD & SCALP: normocephalic FACE & SINUS: normal facial exam NOSE: Normal external nose present and No nasal discharge present EXTERNAL EAR: Yes external ears normal Eye: COMMON NORMALS: Equal, round and reactive pupils present, EOMs intact bilaterally and conjunctivae normal EYELID: eyelids normal CONJUNCTIVA: Yes conjunctivae normal PUPIL: Yes Equal, round and reactive pupils present Neck/C-Spine: GENERAL: No tracheal deviation Chest: COMMONS NORMALS: normal inspection of the chest CHEST: No tenderness Resp: COMMON NORMALS: clear to auscultation bilaterally EFFORT & INSPECTION: Yes tachypneic, Yes respiratory distress, No retractions, No uses accessory muscles and No tracheal deviation AUSCULTATION: clear to auscultation bilaterally, no rhonchi, no wheezes and lung sounds not diminished Cardio: COMMON NORMALS: regular rhythm RATE: tachycardic RHYTHM: regular rhythm HEART SOUNDS: no murmurs PERIPHERAL PULSES: radial pulses present GI: INSPECTION: No abdominal distension AUSCULTATION: No Hyperactive bowel sounds present and No Hypoactive bowel sounds present PALPATION: No Guarding due to palpation present (GI) and No Rigid due to palpation PERCUSSION: no dullness to percussion and no tympanic to percussion Neuro: SENSORIUM/ORIENTATION: Yes oriented to person, Yes oriented to place and Yes oriented to time Psych: COMMON NORMALS: mental status grossly normal Skin: COMMON NORMALS: no rashes or lesions noted GENERAL SKIN EXAM: no rashes or lesions noted Course Vital Signs: Vital signs: Vital Signs Temperature 97.6 F 03/20/20 22:29 Pulse Rate 65 03/21/20 00:00 Respiratory Rate 18 03/20/20 22:45 Blood Pressure 124/78 03/20/20 22:45 Pulse Oximetry 98 03/20/20 22:45 MDM - General Adult MDM Narrative: Medical decision making narrative: 69-year-old female with significant palpitations. She was found to be in a rapid somewhat regular rhythm on arrival in the 130s to 140s. Diltiazem bolus decreased the rhythm into the 70s, and she was found to have an a flutter type rhythm. She slowly crept back up to the 120s. She was started on diltiazem drip. She tolerated the drip. Her shortness of breath is improved. Her white blood cell count is 10.5. She has a significant urinary tract infection by urinalysis. She was given Rocephin for this in the ER. She will come in for atrial flutter with RVR related likely to urinary tract infection. Lab Data: Labs: Lab Results 03/20/20 03/20/20 03/20/20 Range/Units 18:35 18:35 18:35 WBC 10.5 H (4.0-10.0) 10^3/ uL RBC 3.81 L (4.1-5.3) 10^6/u L Hgb 11.7 (11.5-15.3) g/dL Hct 36.8 L (37.0-47.0) % MCV 96.6 (81-99) fL MCH 30.7 (28.0-34.0) pg MCHC 31.8 (30.0-36.0) g/dL RDW 15.7 H (12.1-15.1) % Plt Count 315 (130-400) 10^3/c mm MPV 9.4 (7.4-10.4) fL Neut % (Auto) 76.4 % Lymph % (Auto) 13.7 % [place] % (Auto) 7.3 % Eos % (Auto) 0.7 % Baso % (Auto) 0.9 % Neut # (Auto) 8.04 H (1.8-7.7) 10^3/u L Lymph # (Auto) 1.4 (0.8-4.8) 10^3/u L [place] # (Auto) 0.8 (0.2-0.9) 10^3/u L Eos # (Auto) 0.1 (0.0-0.8) 10^3/u L Baso # (Auto) 0.1 (0.0-0.1) 10^3/u L Nucleated RBC % (a uto) 0 % Nucleated RBCs # 0.0 /100WBC PT 12.60 (10.5-13.3) SECO NDS INR 0.92 (0.8-1.2) APTT 25.1 (23.9-36.7) SECO NDS Sodium 140 (136-145) mmol/L Potassium 3.8 (3.5-5.1) mmol/L Chloride 96 L (98-107) mmol/L Carbon Dioxide 28 (22-29) mmol/L Anion Gap 19.8 H (5-19) BUN 17 (8-23) mg/dL Creatinine 1.1 H (0.5-0.9) mg/dL GFR Calculation Not Reportable Glucose 311 H (65-115) mg/dL Estimat Average Gl ucose Hemoglobin A1c (4.0-6.0) % Calculated Osmolal ity 298 H (285-295) mOsm/k g Calcium 10.0 (8.5-10.5) mg/dL Total Bilirubin 0.4 (0.15-1.2) mg/dL AST 60 H (0-32) U/L ALT 50 H (0-33) U/L Alkaline Phosphata se 130 H (35-105) IU/L Troponin T Baselin e (0-10) ng/L Troponin T 120 Min [place] (0-10) ng/L Delta Troponin T (0-10) ABS# NT-Pro-B Natriuret Pep 1396 H (0-125) pg/mL Total Protein 7.0 (6.6-8.7) g/dL Albumin 4.3 (3.5-5.2) g/dL Globulin 2.7 (1.3-4.6) g/dL Urine Color (Yellow) Urine Appearance (CLEAR) Urine pH (5-7) Ur Specific Gravit y (1.005-1.030) Urine Protein (Negative) Urine Glucose (UA) (Normal) Urine Ketones (Negative) Urine Blood (Negative) Urine Nitrate (Negative) Urine Bilirubin (NEGATIVE) Urine Urobilinogen (Negative) mg/dL Ur Leukocyte Dorota ase (Negative) Urine RBC (0-2) /hpf Urine WBC (0-5) /hpf Ur Squamous Epith Cells (0-5) Amorphous Sediment Urine Bacteria (NONE) 03/20/20 03/20/20 03/20/20 Range/Units 18:35 18:35 19:52 WBC (4.0-10.0) 10^3/ uL RBC (4.1-5.3) 10^6/u L Hgb (11.5-15.3) g/dL Hct (37.0-47.0) % MCV (81-99) fL MCH (28.0-34.0) pg MCHC (30.0-36.0) g/dL RDW (12.1-15.1) % Plt Count (130-400) 10^3/c mm MPV (7.4-10.4) fL Neut % (Auto) % Lymph % (Auto) % [place] % (Auto) % Eos % (Auto) % Baso % (Auto) % Neut # (Auto) (1.8-7.7) 10^3/u L Lymph # (Auto) (0.8-4.8) 10^3/u L [place] # (Auto) (0.2-0.9) 10^3/u L Eos # (Auto) (0.0-0.8) 10^3/u L Baso # (Auto) (0.0-0.1) 10^3/u L Nucleated RBC % (a uto) % Nucleated RBCs # /100WBC PT (10.5-13.3) SECO NDS INR (0.8-1.2) APTT (23.9-36.7) SECO NDS Sodium (136-145) mmol/L Potassium (3.5-5.1) mmol/L Chloride (98-107) mmol/L Carbon Dioxide (22-29) mmol/L Anion Gap (5-19) BUN (8-23) mg/dL Creatinine (0.5-0.9) mg/dL GFR Calculation Glucose (65-115) mg/dL Estimat Average Gl ucose 235 Hemoglobin A1c 9.8 H (4.0-6.0) % Calculated Osmolal ity (285-295) mOsm/k g Calcium (8.5-10.5) mg/dL Total Bilirubin (0.15-1.2) mg/dL AST (0-32) U/L ALT (0-33) U/L Alkaline Phosphata se (35-105) IU/L Troponin T Baselin e 35 H (0-10) ng/L Troponin T 120 Min [place] (0-10) ng/L Delta Troponin T (0-10) ABS# NT-Pro-B Natriuret Pep (0-125) pg/mL Total Protein (6.6-8.7) g/dL Albumin (3.5-5.2) g/dL Globulin (1.3-4.6) g/dL Urine Color Yellow (Yellow) Urine Appearance Cloudy (CLEAR) Urine pH 5 (5-7) Ur Specific Gravit y 1.015 (1.005-1.030) Urine Protein 1+ H (Negative) Urine Glucose (UA) 2+ (Normal) Urine Ketones Negative (Negative) Urine Blood Neg (Negative) Urine Nitrate Negative (Negative) Urine Bilirubin Neg (NEGATIVE) Urine Urobilinogen Norm (Negative) mg/dL Ur Leukocyte Dorota ase 1+ H (Negative) Urine RBC 0-4 H (0-2) /hpf Urine WBC >100 H (0-5) /hpf Ur Squamous Epith Cells 15-25 H (0-5) Amorphous Sediment Not Reportable Urine Bacteria 4+ H (NONE) 03/20/ Range/Units 20:39 WBC (4.0-10.0) 10^3/ uL RBC (4.1-5.3) 10^6/u L Hgb (11.5-15.3) g/dL Hct (37.0-47.0) % MCV (81-99) fL MCH (28.0-34.0) pg MCHC (30.0-36.0) g/dL RDW (12.1-15.1) % Plt Count (130-400) 10^3/c mm MPV (7.4-10.4) fL Neut % (Auto) % Lymph % (Auto) % [place] % (Auto) % Eos % (Auto) % Baso % (Auto) % Neut # (Auto) (1.8-7.7) 10^3/u L Lymph # (Auto) (0.8-4.8) 10^3/u L [place] # (Auto) (0.2-0.9) 10^3/u L Eos # (Auto) (0.0-0.8) 10^3/u L Baso # (Auto) (0.0-0.1) 10^3/u L Nucleated RBC % (a uto) % Nucleated RBCs # /100WBC PT (10.5-13.3) SECO NDS INR (0.8-1.2) APTT (23.9-36.7) SECO NDS Sodium (136-145) mmol/L Potassium (3.5-5.1) mmol/L Chloride (98-107) mmol/L Carbon Dioxide (22-29) mmol/L Anion Gap (5-19) BUN (8-23) mg/dL Creatinine (0.5-0.9) mg/dL GFR Calculation Glucose (65-115) mg/dL Estimat Average Gl ucose Hemoglobin A1c (4.0-6.0) % Calculated Osmolal ity (285-295) mOsm/k g Calcium (8.5-10.5) mg/dL Total Bilirubin (0.15-1.2) mg/dL AST (0-32) U/L ALT (0-33) U/L Alkaline Phosphata se (35-105) IU/L Troponin T Baselin e (0-10) ng/L Troponin T 120 Min [place] 31.43 H (0-10) ng/L Delta Troponin T -3.57 L (0-10) ABS# NT-Pro-B Natriuret Pep (0-125) pg/mL Total Protein (6.6-8.7) g/dL Albumin (3.5-5.2) g/dL Globulin (1.3-4.6) g/dL Urine Color (Yellow) Urine Appearance (CLEAR) Urine pH (5-7) Ur Specific Gravit y (1.005-1.030) Urine Protein (Negative) Urine Glucose (UA) (Normal) Urine Ketones (Negative) Urine Blood (Negative) Urine Nitrate (Negative) Urine Bilirubin (NEGATIVE) Urine Urobilinogen (Negative) mg/dL Ur Leukocyte Dorota ase (Negative) Urine RBC (0-2) /hpf Urine WBC (0-5) /hpf Ur Squamous Epith Cells (0-5) Amorphous Sediment Urine Bacteria (NONE) Discharge Plan Discharge Admit Provider: Tim Robert Discharge Date/Time: 03/20/20 22:48 Coding Level of Care Code ED Shift Superintendent for Chg Fwd Exam Comprehensive
[2020-03-20 19:15] LABS: Basophils # 0.1 10^3/uL (0.0-0.1); Basophils % 0.9 %; Eosinophils # 0.1 10^3/uL (0.0-0.8); Eosinophils % 0.7 %; Hematocrit 36.8 % (37.0-47.0); Hemoglobin 11.7 g/dL (11.5-15.3); Lymphocytes # 1.4 10^3/uL (0.8-4.8); Lymphocytes % 13.7 %; Mean Corpuscular HGB Conc 31.8 g/dL (30.0-36.0); Mean Corpuscular Hemoglobin 30.7 pg (28.0-34.0); Mean Corpuscular Volume 96.6 fL (81-99); Mean Platelet Volume 9.4 fL (7.4-10.4); Monocytes # 0.8 10^3/uL (0.2-0.9); Monocytes % 7.3 %; Neutrophils # 8.04 10^3/uL (1.8-7.7); Neutrophils % 76.4 %; Nucleated Red Blood Cells % 0 %; Platelet Count 315 10^3/cmm (130-400); Red Blood Count 3.81 10^6/uL (4.1-5.3); Red Cell Distribution Width 15.7 % (12.1-15.1); White Blood Count 10.5 10^3/uL (4.0-10.0)
[2020-03-20 19:27] LABS: INR 0.92 (0.8-1.2); Partial Thromboplastin Time 25.1 SECONDS (23.9-36.7)
[2020-03-20 19:34] LABS: Troponin(5th) Baseline 35 ng/L (0-10)
[2020-03-20 19:41] LABS: Alanine Aminotransferase 50 U/L (0-33); Albumin Level 4.3 g/dL (3.5-5.2); Alkaline Phosphatase 130 IU/L (35-105); Anion Gap 19.8 (5-19); Aspartate Amino Transferase 60 U/L (0-32); Blood Urea Nitrogen 17 mg/dL (8-23); Carbon Dioxide 28 mmol/L (22-29); Chloride 96 mmol/L (98-107); Globulin 2.7 g/dL (1.3-4.6); Glucose 311 mg/dL (65-115); NT Pro B Type Natriuretic Pept 1396 pg/mL (0-125); Osmolality Calculated 298 mOsm/kg (285-295); Potassium 3.8 mmol/L (3.5-5.1); Sodium 140 mmol/L (136-145); Total Bilirubin 0.4 mg/dL (0.15-1.2)
--- NOTE | 2020-03-20 19:56 | PC.NURSE ---
UA collected and sent to lab
[2020-03-20 20:23] LABS: Bilirubin Urine Neg (NEGATIVE); Blood Urine Neg (Negative); Glucose Urine UA 2+ (Normal); Ketones Urine Negative (Negative); Nitrate Urine Negative (Negative); Protein Urine 1+ (Negative); Specific Gravity, Urine 1.015 (1.005-1.030); Urine Appearance Cloudy (CLEAR); Urine Color Yellow (Yellow); Urobilinogen Urine Norm (Negative); pH Urine 5 (5-7)
[2020-03-20 20:24] LABS: Add Urine Microscopic? YES; Leukocyte Esterase Urine 1+ (Negative)
[2020-03-20 20:29] LABS: RBC Urine 0-4 /hpf (0-2); WBC Urine >100 /hpf (0-5)
[2020-03-20 20:30] LABS: Add Urine Culture? No; Bacteria Urine 4+; Squamous Epithelial Cell Urine 15-25 (0-5)
[2020-03-20 20:59] LABS: Troponin 5 2HR 31.43 ng/L (0-10)
[2020-03-20 21:30] LABS: Troponin 5 2HR Delta -3.57 ABS# (0-10)
--- NOTE | 2020-03-20 22:04 | P.HP_ITS ---
Providers/Chief Complaint Admitting Physician: Tim Robert MD Primary Care Provider: Jada Ganhdi MD Chief Complaint: HIGH HR History of Present Illness Myesha Parker is a 69 year old female who has history of fibromyalgia, osteoarthritis, oxygen dependent COPD 2 L at baseline, type 2 diabetes, chronic kidney disease stage III, morbid obesity, preserved ejection fraction heart failure, hypothyroidism, depression, anxiety attacks, came in with chief complaint of worsening shortness of breath. Patient is stating that she was with her who manages her medications mostly. Lately she increased her oxygen from 2 L to 3 L, she has been experiencing orthopnea, PND and has been sleeping in a reclining position because of worsening shortness of breath. Her shortness of breath is at rest and on exertion she has not noticed any fever excessive sputum production recent sick contacts myalgias or headaches. She is denying chest discomfort, diarrhea and endorsing dysuria. Today when her checked her blood sugar it was around 300 and blood pressure was ab normal, her shortness of breath and abnormal blood sugar prompted her to come to the ED for further evaluation. Diagnosis in the ER revealed mild CHF exacerbation, I have requested CTA chest Her EKG is revealing narrow complex tachycardia, her previous EKG has not shown A. fib or atrial flutter she is not on any anticoagulation, My suspicion is high for PE considering her sedentary lifestyle, Abnormal UA with positive symptoms High BNP with abnormal transaminases and alk phos., Normal bilirubin, mild CYNTHIA Review of Systems Const: Reports: chills, change in appetite and fatigue Eyes: Denies: change in vision ENMT: Denies: throat pain Card: Reports: swelling of feet/ankles, dyspnea on exertion and orthopnea; Denies: chest pain or irregular heart rhythm Resp: Reports: dyspnea and non-productive cough; Denies: productive cough GI: Denies: abdominal pain, nausea, vomiting, diarrhea or constipation : Reports: dysuria and urinary frequency Musc: Denies: neck pain Skin/Breast: Denies: rash Neuro: Reports: headache(s) Psych: Reports: anxiety and depression Endo: Denies: polyuria [place]/Lymph: Denies: easy bruising All/Imm: Denies: urticaria Medications/Allergies Home Medications Medication Instructions Recorded Confirmed Last Taken Type albuterol sulfate 90 mcg/actuation 2 puff INHALATION Q6H PRN 09/09/19 02/12/20 12/31/19 History aerosol inhaler aspirin 325 mg tablet 325 mg PO BEDTIME tab 09/09/19 02/12/20 12/30/19 History furosemide 20 mg tablet 40 mg PO EVERY OTHER DAY tab 09/09/19 02/12/20 12/31/19 History insulin human U-100 NPH-regulr See Rx Instructions .ROUTE 09/09/19 02/12/20 10/11/19 History 70-30 mix 100 unit/mL subcutaneous .COMPLEX ml susp levothyroxine 175 mcg capsule 175 mcg PO DAILY cap 09/09/19 02/12/20 12/31/19 History metoprolol tartrate 50 mg tablet 100 mg PO BID tab 09/09/19 02/12/20 12/31/19 History pantoprazole 40 mg tablet,delayed 40 mg PO BID tab 09/09/19 02/12/20 12/31/19 History release potassium chloride 20 mEq 20 meq PO BID 09/09/19 02/12/20 12/31/19 History tablet,extended release digoxin 125 mcg (0.125 mg) tablet 125 mcg PO DAILY 10/02/19 02/12/20 12/31/19 History ergocalciferol (vitamin D2) 50,000 50,000 unit PO Q7D 10/02/19 02/12/20 12/29/19 History unit tablet ferrous gluconate 324 mg (37.5 mg 324 mg PO DAILY 10/02/19 02/12/20 10/11/19 H istory iron) tablet garlic 1,000 mg capsule 1,000 mg PO DAILY 10/02/19 02/12/20 10/11/19 History Liver Aid 2 tab PO DAILY 10/12/19 02/12/20 Unknown History acetaminophen [Arthritis Pain 650 mg PO PRN PRN 10/12/19 02/12/20 Unknown History Reliever] albuterol sulfate 2.5 mg INHALATION Q4H PRN 10/12/19 02/12/20 Unknown History atorvastatin [Lipitor] 40 mg PO DAILY 10/12/19 02/12/20 12/30/19 History black cohosh 80 mg PO DAILY 10/12/19 02/12/20 Unknown History carica papaya [Papaya Enzyme] 4 tab PO PRN 10/12/19 02/12/20 Unknown History chlorpheniramine maleate 4 mg PO TID 10/12/19 02/12/20 12/31/19 History [ChlorTabs] cholecalciferol (vitamin D3) 1,000 unit PO DAILY 10/12/19 02/12/20 12/30/19 History [Vitamin D3] cranberry 2 tab PO QAM 10/12/19 02/12/20 12/31/19 History cyanocobalamin (vitamin B-12) 1,000 mcg PO DAILY 10/12/19 02/12/20 12/31/19 H istory [Vitamin B-12] diphenhydramine HCl [Benadryl] 25 mg PO PRN PRN 10/12/19 02/12/20 Unknown History docusate sodium [Stool Softener] 100 mg PO BID PRN 10/12/19 02/12/20 Unknown History loperamide [Anti-Diarrheal 2 - 4 mg PO DIRECTED 10/12/19 02/12/20 10/11/19 History (loperamide)] loratadine 20 mg PO DAILY 10/12/19 02/12/20 12/31/19 History magnesium L-lactate [Magtab] 84 mg PO BID 10/12/19 02/12/20 10/11/19 History methylsulfonylmethane [MSM] 1,000 mg PO BID 10/12/19 02/12/20 Unknown History nitroglycerin [Nitrostat] 0.4 mg SUBLINGUAL Q5M PRN 10/12/19 02/12/20 Unknown History omega 8-[id number]-fish oil [Ultra 2 cap PO DAILY 10/12/19 02/12/20 12/31/19 History Hardy-3] ondansetron HCl [Zofran] 4 mg PO DAILY PRN 10/12/19 02/12/20 Unknown History pantothenic acid (vit B5) 500 mg PO DAILY 10/12/19 02/12/20 12/31/19 History pyridoxine (vitamin B6) [Vitamin 100 mg PO DAILY 10/12/19 02/12/20 12/31/19 History B-6] riboflavin (vitamin B2) [Vitamin 100 mg PO DAILY 10/12/19 02/12/20 Unknown History B-2] vitamin E 400 unit PO DAILY 10/12/19 02/12/20 12/31/19 History zinc 50 mg PO DAILY 10/12/19 02/12/20 12/26/19 History Admelog U-100 Insulin lispro See Rx Instructions .ROUTE .COMPLEX 12/31/19 02/12/20 12/31/19 14:25 History amlodipine 10 mg PO DAILY 12/31/19 02/12/20 12/30/19 History lisinopril 10 mg tablet 10 mg PO DAILY 01/05/20 02/12/20 Unknown History lisinopril 5 mg tablet 5 mg PO DAILY 01/05/20 02/12/20 Unknown History hydralazine 50 mg tablet 50 mg PO TID 30 Days #90 tab 01/20/20 02/12/20 Unknown Rx aripiprazole 5 mg tablet 5 mg PO QAM #30 tab 02/09/20 02/12/20 Unknown Rx buspirone 10 mg tablet 10 mg PO BID #60 tab 02/09/20 02/12/20 Unknown Rx duloxetine 30 mg capsule,delayed 30 mg PO QAM #30 cap 02/09/20 02/12/20 Unknown Rx release duloxetine 60 mg capsule,delayed 60 mg PO QAM #30 cap 02/09/20 02/12/20 Unknown Rx release hydrocodone 5 mg-acetaminophen 325 1 tab PO Q6H PRN 30 Days #120 tab 02/12/20 02/12/20 Unknown Rx mg tablet hydrocodone 5 mg-acetaminophen 325 1 tab PO QID 30 Days #120 tab 02/12/20 02/12/20 Unknown Rx mg tablet tramadol 50 mg tablet 100 mg PO QID PRN 30 Days #240 tab 02/12/20 02/12/20 Unknown Rx tizanidine 4 mg tablet 4 mg PO TID PRN #90 tab 02/13/20 Unknown Rx methotrexate sodium 2.5 mg tablet 10 mg PO .Q7days #20 tab 02/26/20 Unknown Rx prednisone 5 mg tablet 5 mg PO DAILY #30 tab 02/26/20 Unknown Rx Allergies Allergy/AdvReac Type Severity Reaction Status Date / Time adhesive tape Allergy rash Verified 03/20/20 18:11 cinnamon Allergy sinus Verified 03/20/20 18:11 codeine Allergy unknown Verified 03/20/20 18:11 cedar Allergy sinus Uncoded 03/20/20 18:11 pine Allergy sinus Uncoded 03/20/20 18:11 pork food Allergy ADR-Nausea Uncoded 03/20/20 18:11 PFSH Acute PFSH: Medical History Anxiety and depression Cholecystectomy planned Chronic combined systolic and diastolic CHF (congestive heart failure) COPD (chronic obstructive pulmonary disease) Oxygen dependent, 2 L at baseline Encounter for long-term opiate analgesic use Fibromyalgia High risk medication use Hyperlipidemia Hypertension Hypothyroidism Immunization counseling Inflammatory arthritis Intermittent atrial fibrillation Left renal mass Liver cirrhosis Low back pain of over 3 months duration Morbid obesity She has limited activity tolerance and exertional dyspnea, which affects her ability to exercise and participate in physical activities. Opioid contract exists Osteoarthritis of knees, bilateral Polypharmacy Multiple medical conditions requiring medications as noted in the EMR/medication record. Recurrent UTI Urgency incontinence Surgical History History of cardiac cath History of hysterectomy History of knee replacement History of thyroid surgery Family History Other CAD (coronary artery disease) Cancer Denies family history of Anesthesia complication Bleeding disorder Social History Smoking and tobacco status: former smoker Quit status (tobacco): has quit using tobacco Year quit tobacco: 2005 Second hand smoke exposure: No Alcohol intake: unknown Adopted: No Caregiver/support person: No Lives independently: No Household members: spouse Marital status: Current occupational status: retired History of recent travel: No Current gender identity: Female Vitals/I&O/Wt Last Vital Signs Temp 98.2 F 03/20/20 18:09 Pulse 77 03/20/20 21:55 Resp 16 03/20/20 20:38 BP 131/67 03/20/20 21:55 Pulse Ox 97 03/20/20 21:55 03/20/20 03/20/20 03/20/20 06:59 14:59 22:59 Intake Total 5.625 / 5.625 Balance 5.625 / 5.625 Weight last 48 hrs Weight 104.326 kg Physical Exam Narrative: EXAM NARRATIVE: Pleasant elderly female currently laying comfortable in supine position saturating well on 2 L nasal cannula No active respiratory distress, Tachycardia, S1, S2 without overt signs of CHF exacerbation Bilateral breath sounds with mild crepitations/crackles at the bases Abdomen soft distended bowel sound present, visceral obesity, nontender Lower extremity without any edema gangrene or ulcer EOMI, PERRLA Patient appears fatigued Appropriate mood and affect Endorsing dysuria Data : 03/20/20 18:35 03/20/20 18:35 A&P Assessment and plan (1) Narrow complex tachycardia: Status: Acute (2) Sleep apnea in adult: Status: Chronic (3) Fibromyalgia: Status: Acute (4) High risk medication use: Status: Acute (5) Heart failure with preserved ejection fraction: Status: Acute (6) CHF exacerbation: Status: Acute (7) UTI (urinary tract infection): Status: Acute (8) Poorly controlled diabetes mellitus: Status: Acute Additional A&P Information Symptomatic narrow complex tachycardia Patient is symptomatic with orthopnea PND and dyspnea on exertion Rule out PE Differential for supraventricular tachycardia multifocal atrial tachycardia, sinus tachycardia, I could clearly see P waves I would not call it A. 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 would be vigilant to monitor her heart rate to avoid bradycardia no active chest pain, negative delta troponin Diastolic congestive heart failure exacerbation due to tachyarrhythmia Patient uses Lasix every other day considering her orthopnea PND and active dyspnea on exertion and at rest I would use Bumex 1 mg daily for few days and then might switch back to every other day however clinically no overt signs of fluid overload She has grade 1 diastolic dysfunction, BNP 14,000 Obstructive sleep apnea: CPAP at night Active UTI Abnormal urinalysis with positive symptoms Would obtain urine culture, ceftriaxone initiated Poorly controlled type 2 diabetes Last A1c 8 in September Repeat A1c level, moderate sliding scale Full code Cardiac consistent carb diet Lovenox DVT prophylax Attestations Medical Necessity Statement*: Anticipating stay in the hospital cross more than 2 midnights currently management for narrow complex tachycardia, need to rule out PE, she is on Cardizem drip at the moment Time Spent in Patient Care: (>than 50% of time spent in counselling and/or direct pt care on unit) . 50mins Coding Level of Care Code Acute Corporate Tax Preparer for Chg Fwd Diagnoses Narrow complex tachycardia I47.1 Sleep apnea in adult G47.30 Fibromyalgia M79.7 High risk medication use Z79.899 Heart failure with preserved ejection fraction I50.30 CHF exacerbation I50.9 UTI (urinary tract infection) N39.0 Poorly controlled diabetes mellitus E11.65
[2020-03-20] MEDS: cefTRIAXone 1,000 MG in sodium chloride 0.9% (plus) 50 ML 100 MG IV (22:14)
--- NOTE | 2020-03-20 22:14 | CTR_ITS ---
PROCEDURE INFORMATION: Exam: CT Angiography Chest With Contrast Exam date and time: 03/20/2020 10:33 PM Age: 69 years old Clinical indication: Shortness of breath; Patient HX: Tachy w SOB; Additional info: Sinus tachycardia TECHNIQUE: Imaging protocol: Computed tomographic angiography of the chest with intravenous contrast. 3D rendering: MIP and/or 3D reconstructed images were created by the technologist. Radiation optimization: All CT scans at this facility use at least one of these dose optimization techniques: automated exposure control; mA and/or kV adjustment per patient size (includes targeted exams where dose is matched to clinical indication); or iterative reconstruction. Contrast material: VISI 320; Contrast volume: 95 ml; Contrast route: INTRAVENOUS (IV); COMPARISON: CT angio chest PE protcl [id number] 12/31/2019 9:33 PM RADIATION DOSE METRICS: Total DLP (mGy-cm): 616.3 FINDINGS: Pulmonary arteries: There is no evidence of filling defects within the pulmonary arterial circulation to suggest pulmonary embolism. Aorta: Unremarkable. No aortic aneurysm. No aortic dissection. Lungs: There is calcified granuloma in the lingula. No focal infiltrate is identified. Pleural space: Unremarkable. No pneumothorax. No pleural effusion. Heart: Unremarkable. No cardiomegaly. No pericardial effusion. Lymph nodes: Unremarkable. No enlarged lymph nodes. Spleen: The spleen demonstrates punctate calcifications, consistent with remote granulomatous organism exposure. Kidneys and ureters: Left kidney cyst is unchanged from previous. Bones/joints: Scoliosis unchanged. No acute fracture. Soft tissues: Unremarkable. CT/CT angio chest PE protcl [id number] IMPRESSION: No evidence of pulmonary embolism. Radiation Dose CTDIVOL = (mGy): DLP = 616.3 (mGy-cm)
--- NOTE | 2020-03-20 22:30 | PC.NURSE ---
Patient arrived from ER. Patient alert and oriented. Patient changed into a gown. Patient placed on telemetry and bedside commode provided. Vitals obtained. Will continue to monitor.
[2020-03-20] MEDS: iodixanol 320 mg/mL 100mL Btl IV (23:04)
[2020-03-20] MEDS: enoxaparin 40 mg/0.4 mL Syringe SUBCUT (23:55)
[2020-03-20] MEDS: aspirin 81 mg EC Tablet PO (23:55)
[2020-03-20] MEDS: potassium chloride ER 10 mEq Tablet 40 MEQ PO (23:55)
[2020-03-20 23:57] LABS: Estmated Average Glucose 235; Hemoglobin A1C 9.8 % (4.0-6.0)
[2020-03-21] VITALS (10 sets, daily range): BP systolic 115–166; BP diastolic 53–90; PULSE 65–89; RESP 14–21; TEMP 36.6–36.9; O2SAT 90–97
--- NOTE | 2020-03-21 00:53 | ECG_ITS ---
[facility] Test Date: 2020-03-21 Pat Name: Myesha Parker Department: Room: 112 Gender: Female Flat Optical Element Maker: vernon QURESHIB: 1950 Requested By: Matty Collins Order Number: [id number] Wilbur MD: Lucia Oakley M.D. Measurements Intervals [place] Rate: 68 P: 30 AL: 216 QRS: -77 QRSD: 156 T: 48 QT: 486 QTc: 519 Interpretive Statements SINUS RHYTHM WITH FIRST DEGREE AV BLOCK RIGHT BUNDLE BRANCH BLOCK LEFT ANTERIOR FASCICULAR BLOCK MINIMAL VOLTAGE CRITERIA FOR LVH, CONSIDER NORMAL VARIANT Compared to ECG 03/20/2020 18:37:21 First degree AV block now present Left anterior fascicular block now present Right-axis deviation no longer present ST (T wave) deviation no longer present Electronically Signed On 03-21-2020 12:50:31 CDT by Lucia Oakley M.D. [email or web address] medical groupStorytime Studiosholmes county [facility].[employer]/store/OM/[id number]
--- NOTE | 2020-03-21 01:51 | PC.NURSE ---
Unable to to reconcile patient medications due to patient not bringing a medication list or bottles. Patient states her may have a list at home but is asleep.
[2020-03-21 03:55] LABS: Basophils # 0.1 10^3/uL (0.0-0.1); Basophils % 0.9 %; Eosinophils # 0.1 10^3/uL (0.0-0.8); Eosinophils % 1.1 %; Hematocrit 34.5 % (37.0-47.0); Hemoglobin 10.8 g/dL (11.5-15.3); Lymphocytes # 2.2 10^3/uL (0.8-4.8); Lymphocytes % 23.7 %; Mean Corpuscular HGB Conc 31.3 g/dL (30.0-36.0); Mean Corpuscular Volume 95.8 fL (81-99); Mean Platelet Volume 9.3 fL (7.4-10.4); Monocytes # 0.8 10^3/uL (0.2-0.9); Monocytes % 8.4 %; Neutrophils # 6.09 10^3/uL (1.8-7.7); Neutrophils % 65.2 %; Nucleated Red Blood Cells % 0 %; Platelet Count 278 10^3/cmm (130-400); Red Cell Distribution Width 15.8 % (12.1-15.1); White Blood Count 9.4 10^3/uL (4.0-10.0)
--- NOTE | 2020-03-21 05:19 | PC.NURSE ---
End of shift: Patient has had a uneventful shift. Patient current heartrate is 77bpm and is in sinus rhythm. Patient has had no complaints of pain Will continue to monitor.
[2020-03-21 06:01] LABS: Alanine Aminotransferase 46 U/L (0-33); Alkaline Phosphatase 120 IU/L (35-105); Anion Gap 16.8 (5-19); Aspartate Amino Transferase 53 U/L (0-32); Blood Urea Nitrogen 22 mg/dL (8-23); Calcium 10.3 mg/dL (8.5-10.5); Carbon Dioxide 29 mmol/L (22-29); Chloride 97 mmol/L (98-107); Globulin 2.9 g/dL (1.3-4.6); Glucose 243 mg/dL (65-115); Osmolality Calculated 293 mOsm/kg (285-295); Potassium 3.8 mmol/L (3.5-5.1); Sodium 139 mmol/L (136-145); Total Bilirubin 0.3 mg/dL (0.15-1.2); Total Protein 6.9 g/dL (6.6-8.7)
[2020-03-21] MEDS: duloxetine 30 mg Capsule PO (06:01)
[2020-03-21] MEDS: ARIPiprazole 10 mg Tablet 5 MG PO (06:02)
[2020-03-21 06:27] LABS: Glucose Point of Care 238 mg/dL (70-110)
[2020-03-21] MEDS: HYDROcodone-acetaminophen 5-325 mg Tablet 1 TAB PO ×3 (08:03→21:03)
[2020-03-21] MEDS: levothyroxine 50 mcg Tablet PO (08:05)
[2020-03-21] MEDS: levothyroxine 125 mcg Tablet PO (08:05)
[2020-03-21] MEDS: metoprolol tartrate 50 mg Tablet 100 MG PO ×2 (09:49→18:11)
[2020-03-21] MEDS: digoxin 125 mcg Tablet PO (09:49)
[2020-03-21] MEDS: predniSONE 5 mg Tablet PO (09:49)
[2020-03-21] MEDS: bumetanide 1 mg Tablet PO (09:49)
[2020-03-21] MEDS: atorvastatin 40 mg Tablet PO (09:49)
[2020-03-21] MEDS: pantoprazole DR 40 mg Tablet PO ×2 (09:49→18:11)
--- NOTE | 2020-03-21 10:13 | PC.NURSE ---
Addendum entered by Fredis Costa RN 03/21/20 11:01: Talked to MD about her Methotrexate q7days that she takes every Sunday. Per MD to hold it. Original Note: Med Rec Called Gerardo, regarding pt's current home meds she is taking. He said she is not taking Lisinopril anymore from the last hospitalization due to her kidneys. MD informed.
[2020-03-21 10:33] LABS: Magnesium 1.9 mg/dL (1.7-2.3); Thyroid Stimulating Hormone 1.08 uIU/mL (0.27-4.20)
[2020-03-21 10:34] LABS: Digoxin 0.9 ng/mL (0.6-1.2)
--- NOTE | 2020-03-21 10:59 | P.PN_ITS ---
Subjective Subjective: Interval history: History and physical reviewed. Patient reports she still has some hesitancy and urgency. She is breathing better. Medications: Reviewed: Yes Vitals/I&O/Wt Last Vital Signs Temp 98.3 F 03/21/20 07:29 Pulse 80 03/21/20 09:49 Resp 21 H 03/21/20 07:29 BP 125/66 03/21/20 07:29 Pulse Ox 94 03/21/20 07:29 03/20/20 03/21/20 03/21/20 22:59 06:59 14:59 Intake Total 5.625 / 5.625 312.833 / 318.458 360 / 360 Balance 5.625 / 5.625 312.833 / 318.458 360 / 360 Weight last 48 hrs Weight 104.326 kg Physical Exam Narrative: EXAM NARRATIVE: General exam no apparent distress Cardiovascular regular rate and rhythm. Telemetry currently shows sinus rhythm Lungs clear without crackles or wheezes Abdomen is soft positive bowel sounds Extremities trace edema. Data : 03/21/20 03:21 03/21/20 03:21 A&P Assessment and plan (1) Narrow complex tachycardia: Resolved. Sinus rhythm currently. Does have past history of atrial fibrillation, and is on digoxin. Check digoxin level Check a magnesium level CTA was performed and no evidence of pulmonary embolism. Status: Acute (2) CHF exacerbation: Bumex initiated yesterday. Overall better compensation. Consistent with acute diastolic heart failure Status: Acute (3) UTI (urinary tract infection): Placed on Rocephin. Await culture. Status: Acute (4) Poorly controlled diabetes mellitus: Will need close outpatient follow-up. Continue sliding scale insulin Status: Acute Additional A&P Information Past history of atrial fibrillation. I cannot definitively see this in any EKG or tracings from this hospital stay. She is on digoxin and metoprolol. COPD. Chronically on 2 L of oxygen. No evidence of exacerbation. History of fibromyalgia Morbid obesity Hypothyroidism History of inflammatory arthritis for which she is on prednisone and receives methotrexate. Holding methotrexate currently secondary to active infection. Full code Lovenox for DVT prophylaxis Attestations Medical Necessity Statement*: Needs continued hospitalization for IV antibiotics for UTI, close follow-up with medication adjustments for acute diastolic congestive heart failure. Coding Level of Care Code Acute Community Product Specialist for Dougie Samson Diagnoses Narrow complex tachycardia I47.1 CHF exacerbation I50.9 UTI (urinary tract infection) N39.0 Poorly controlled diabetes mellitus E11.65
[2020-03-21 11:28] LABS: Glucose Point of Care 302 mg/dL (70-110)
[2020-03-21 16:07] LABS: Glucose Point of Care 321 mg/dL (70-110)
[2020-03-21 20:20] LABS: Glucose Point of Care 289 mg/dL (70-110)
[2020-03-21] MEDS: aspirin 81 mg EC Tablet PO (21:03)
[2020-03-21] MEDS: enoxaparin 40 mg/0.4 mL Syringe SUBCUT (21:03)
[2020-03-21] MEDS: cefTRIAXone 1,000 MG in sodium chloride 0.9% (plus) 50 ML 100 MG IV (21:04)
--- NOTE | 2020-03-21 22:17 | PC.NURSE ---
Patient was given PRN pain medication for complaint of pain in lower back, which the patient states is chronic pain. Patient was assisted to bedside commode and back to bed. Will monitor.
[2020-03-22] VITALS (8 sets, daily range): BP systolic 111–167; BP diastolic 55–92; PULSE 74–95; RESP 16–25; TEMP 36.7–37; O2SAT 92–98
[2020-03-22] MEDS: duloxetine 30 mg Capsule PO (05:27)
[2020-03-22] MEDS: ARIPiprazole 10 mg Tablet 5 MG PO (05:27)
[2020-03-22 06:06] LABS: Basophils # 0.1 10^3/uL (0.0-0.1); Basophils % 1.2 %; Eosinophils # 0.1 10^3/uL (0.0-0.8); Eosinophils % 1.9 %; Hematocrit 32.9 % (37.0-47.0); Hemoglobin 10.2 g/dL (11.5-15.3); Lymphocytes # 1.7 10^3/uL (0.8-4.8); Lymphocytes % 23.4 %; Mean Corpuscular Volume 96.8 fL (81-99); Mean Platelet Volume 9.4 fL (7.4-10.4); Monocytes # 0.8 10^3/uL (0.2-0.9); Monocytes % 10.4 %; Neutrophils # 4.62 10^3/uL (1.8-7.7); Neutrophils % 62.6 %; Nucleated Red Blood Cells % 0 %; Platelet Count 202 10^3/cmm (130-400); Red Cell Distribution Width 15.5 % (12.1-15.1); White Blood Count 7.4 10^3/uL (4.0-10.0)
--- NOTE | 2020-03-22 06:07 | PC.NURSE ---
Patient does not have any complaints at this time. Patient refused her CPAP last night, however oxygen saturation maintained 90s on continuous pulse ox with 2 L NC. Will monitor.
[2020-03-22 06:25] LABS: Alanine Aminotransferase 42 U/L (0-33); Albumin Level 3.3 g/dL (3.5-5.2); Alkaline Phosphatase 111 IU/L (35-105); Anion Gap 14.9 (5-19); Aspartate Amino Transferase 41 U/L (0-32); Blood Urea Nitrogen 25 mg/dL (8-23); Calcium 8.9 mg/dL (8.5-10.5); Carbon Dioxide 28 mmol/L (22-29); Chloride 102 mmol/L (98-107); Globulin 3.2 g/dL (1.3-4.6); Glucose 230 mg/dL (65-115); Magnesium 1.9 mg/dL (1.7-2.3); Osmolality Calculated 296 mOsm/kg (285-295); Potassium 3.9 mmol/L (3.5-5.1); Sodium 141 mmol/L (136-145); Total Bilirubin 0.3 mg/dL (0.15-1.2); Total Protein 6.5 g/dL (6.6-8.7)
[2020-03-22 06:38] LABS: Glucose Point of Care 261 mg/dL (70-110)
--- NOTE | 2020-03-22 08:07 | PC.NURSE ---
PATIENT SITTING UP ON SIDE OF BED EATING BREAKFAST ; VSS ; PATIENT DENIES ANY SOB OR PAIN AT THIS TIME
--- NOTE | 2020-03-22 09:44 | PM.DCS ---
Discharge Providers Date of Admission: 03/20/20 21:26 Date of Discharge: March 22, 2020 Attending Provider at Admission: Tim Robert MD Attending Provider at Discharge: Milton Blandon Primary Care Provider: Jada Gandhi MD Diagnoses at Discharge Discharge Diagnosis (1) Narrow complex tachycardia: Status: Acute (2) CHF exacerbation: Status: Acute (3) UTI (urinary tract infection): Status: Acute (4) Poorly controlled diabetes mellitus: Status: Acute Reason for Visit Reason for Visit: HIGH HR Hospital Course Hospital Course: Pleasant 69-year-old lady with oxygen dependent COPD, chronically on 2 L at baseline, rheumatoid arthritis, chronic kidney disease stage III, fibromyalgia, DM 2, hypothyroidism, other medical problems, presented due to worsening shortness of breath, having to increase her oxygen flow from 2 to 3 L. Hyperglycemia. With noted narrow complex tachycardia on presentation. Due to concern for PE, she was evaluated by CTA, which did not show any findings suspicious for PE. Lower extremity duplex was negative for VTE. Her digoxin level, which she takes due to paroxysmal atrial fibrillation, was checked and was normal. Magnesium level checked and was normal as well. She had no findings suspicious of cardiac ischemia. She received treatment with diuresis for acute exacerbation of diastolic congestive heart failure. Also received treatment for urinary tract infection. Today she is feeling better. She is at baseline oxygen requirement at 2 L. She reports that her dysuria symptoms are better. She is feeling strong enough to return home and continue follow-up on outpatient side with her primary care provider. She is encouraged to monitor her heart rates, and maintain a log to bring to her appointment. We will continue Bumex for 4 more days, after which may switch back to her usual Lasix regimen, although this may need to be adjusted depending on her ongoing status and reassessment. For urinary tract infection will complete course with oral third-generation cephalosporin, although discussed with her for now gram-negative rods are seen in urine, but final urine culture will need to be followed up. Physical Exam Const: COMMON NORMALS: no acute distress and patient oriented x3 NUTRITIONAL APPEARANCE: overweight HENMT: COMMON NORMALS: oropharynx normal Neck/C-Spine: COMMON NORMALS: no JVD Resp: COMMON NORMALS: normal respiratory effort and clear to auscultation bilaterally AUSCULTATION: clear to auscultation bilaterally Cardio: COMMON NORMALS: no JVD, regular rhythm, S1 normal heart sound present, S2 normal heart sound present and No murmurs present (Cardio) RHYTHM: regular rhythm HEART SOUNDS: S1 normal heart sound present and S2 normal heart sound present GI: COMMON NORMALS: Normal to inspection, nondistended, normoactive bowel sounds present, Soft to palpation and non-tender PALPATION: Yes Soft to palpation Extremity: COMMON NORMALS: no joint enlargement and no pedal edema Neuro: COMMON NORMALS: patient oriented x3 and moves all extremities Skin: COMMON NORMALS: no rashes or lesions noted GENERAL SKIN EXAM: no rashes or lesions noted Discharge Data Data Completed and Pending: Completed Studies During Hospitalization Category Date Time Status CTA chest [CT ang io chest PE protcl [id number]] Stat Cat Scan 03/20/20 22:14 Completed XR chest 1V teetee ble [id number] Stat Exams 03/20/20 18:53 Completed Pending at discharge Category Date Time Status Urine Culture Sta t Lab 03/21/20 01:28 Results Labs from last 24 hours 03/22/20 03/22/20 03/22/20 06:23 05:59 05:59 WBC 7.4 RBC 3.40 L Hgb 10.2 L Hct 32.9 L MCV 96.8 MCH 30.0 MCHC 31.0 RDW 15.5 H Plt Count 202 MPV 9.4 Neut % (Auto) 62.6 Lymph % (Auto) 23.4 [place] % (Auto) 10.4 Eos % (Auto) 1.9 Baso % (Auto) 1.2 Neut # (Auto) 4.62 Lymph # (Auto) 1.7 [place] # (Auto) 0.8 Eos # (Auto) 0.1 Baso # (Auto) 0.1 Nucleated RBC % (a uto) 0 Nucleated RBCs # 0.0 Sodium 141 Potassium 3.9 Chloride 102 Carbon Dioxide 28 Anion Gap 14.9 BUN 25 H Creatinine 1.0 H GFR Calculation Not Reportable Glucose 230 H POC Glucose 261 Calculated Osmolal ity 296 H Calcium 8.9 Magnesium 1.9 Total Bilirubin 0.3 AST 41 H ALT 42 H Alkaline Phosphata se 111 H Total Protein 6.5 L Albumin 3.3 L Globulin 3.2 TSH Digoxin 03/21/20 03/21/20 03/21/20 20:17 16:03 11:03 WBC RBC Hgb Hct MCV MCH MCHC RDW Plt Count MPV Neut % (Auto) Lymph % (Auto) [place] % (Auto) Eos % (Auto) Baso % (Auto) Neut # (Auto) Lymph # (Auto) [place] # (Auto) Eos # (Auto) Baso # (Auto) Nucleated RBC % (a uto) Nucleated RBCs # Sodium Potassium Chloride Carbon Dioxide Anion Gap BUN Creatinine GFR Calculation Glucose POC Glucose 289 321 302 Calculated Osmolal ity Calcium Magnesium Total Bilirubin AST ALT Alkaline Phosphata se Total Protein Albumin Globulin TSH Digoxin 03/21/20 03/21/20 08:41 03:21 WBC RBC Hgb Hct MCV MCH MCHC RDW Plt Count MPV Neut % (Auto) Lymph % (Auto) [place] % (Auto) Eos % (Auto) Baso % (Auto) Neut # (Auto) Lymph # (Auto) [place] # (Auto) Eos # (Auto) Baso # (Auto) Nucleated RBC % (a uto) Nucleated RBCs # Sodium Potassium Chloride Carbon Dioxide Anion Gap BUN Creatinine GFR Calculation Glucose POC Glucose Calculated Osmolal ity Calcium Magnesium 1.9 Total Bilirubin AST ALT Alkaline Phosphata se Total Protein Albumin Globulin TSH 1.08 Digoxin 0.9 Cancelled Vitals: Last Vital Signs Temp 98.2 F 03/22/20 07:43 Pulse 82 03/22/20 09:42 Resp 17 03/22/20 09:42 BP 111/55 03/22/20 07:43 Pulse Ox 96 03/22/20 09:42 Discharge Plan Discharge Patient Disposition: Home Condition: Stable Prescriptions: New bumetanide 1 mg Tablet 1 mg PO DAILY Qty: 4 RF: 0 cefpodoxime 100 mg tablet 100 mg PO BID Qty: 10 RF: 0 Continued digoxin [Lanoxin] 125 mcg (0.125 mg) tablet 125 mcg PO DAILY RF: 0 garlic 1,000 mg capsule 1,000 mg PO DAILY RF: 0 ferrous gluconate 324 mg (37.5 mg iron) tablet 324 mg PO DAILY RF: 0 hydralazine 50 mg tablet 50 mg PO TID 30 Days Qty: 90 RF: 5 aspirin 325 mg tablet 325 mg PO BEDTIME RF: 0 Novolin 70/30 U-100 Insulin 100 unit/mL (70-30) suspension See Rx Instructions .ROUTE .COMPLEX RF: 0 metoprolol tartrate 50 mg tablet 100 mg PO BID RF: 0 levothyroxine 175 mcg capsule 175 mcg PO DAILY RF: 0 pantoprazole [Protonix] 40 mg tablet,delayed release (DR/EC) 40 mg PO BID RF: 0 potassium chloride 20 mEq tablet extended release 20 meq PO BID RF: 0 Abilify 5 mg tablet 5 mg PO QAM Qty: 30 RF: 1 buspirone 10 mg tablet 10 mg PO BID Qty: 60 RF: 1 duloxetine [Cymbalta] 30 mg capsule,delayed release(DR/EC) 30 mg PO QAM Qty: 30 RF: 1 duloxetine [Cymbalta] 60 mg capsule,delayed release(DR/EC) 60 mg PO QAM Qty: 30 RF: 1 hydrocodone-acetaminophen 5-325 mg tablet 1 tab PO QID 30 Days Qty: 120 RF: 0 tramadol 50 mg tablet 100 mg PO QID PRN (Reason: pain) 30 Days Qty: 240 RF: 0 tizanidine 4 mg tablet 4 mg PO TID PRN (Reason: muscle spasticity) Qty: 90 RF: 1 prednisone 5 mg tablet 5 mg PO DAILY Qty: 30 RF: 3 atorvastatin [Lipitor] 40 mg Tablet 40 mg PO DAILY RF: 0 pantothenic acid (vit B5) 500 mg Tablet 500 mg PO DAILY RF: 0 chlorpheniramine maleate [ChlorTabs] 4 mg Tablet 4 mg PO TID RF: 0 carica papaya [Papaya Enzyme] Tablet 4 tab PO PRN RF: 0 riboflavin (vitamin B2) [Vitamin B-2] 100 mg Tablet 100 mg PO DAILY RF: 0 ondansetron HCl [Zofran] 4 mg Tablet 4 mg PO DAILY PRN (Reason: Nausea) RF: 0 loperamide [Anti-Diarrheal (loperamide)] 2 mg Tablet 2 - 4 mg PO PRN PRN (Reason: Diarrhea) RF: 0 cyanocobalamin (vitamin B-12) [Vitamin B-12] 1,000 mcg Tablet 1,000 mcg PO DAILY RF: 0 acetaminophen [Arthritis Pain Reliever] 650 mg Tablet Extended Release 650 mg PO PRN PRN (Reason: Pain) RF: 0 diphenhydramine HCl [Benadryl] 25 mg Capsule 25 mg PO PRN PRN (Reason: ALLERGIES) RF: 0 nitroglycerin [Nitrostat] 0.4 mg Tablet, Sublingual 0.4 mg SUBLINGUAL Q5M PRN (Reason: Chest Pain) RF: 0 docusate sodium [Stool Softener] 100 mg Capsule 100 mg PO BID PRN (Reason: Constipation) RF: 0 zinc 50 mg Tablet 50 mg PO DAILY RF: 0 pyridoxine (vitamin B6) [Vitamin B-6] 100 mg Tablet 100 mg PO DAILY RF: 0 vitamin E 400 unit Capsule 400 unit PO DAILY RF: 0 loratadine 10 mg Tablet 20 mg PO DAILY RF: 0 methylsulfonylmethane [MSM] 1,000 mg Tablet 1,000 mg PO BID RF: 0 magnesium L-lactate [Magtab] 84 mg tablet extended release 84 mg PO BID RF: 0 cholecalciferol (vitamin D3) [Vitamin D3] 25 mcg (1,000 unit) Tablet 1,000 unit PO DAILY RF: 0 omega 0-jit-rcw-fish oil [Ultra [place]-3] 500-1,000 mg Capsule 2 cap PO DAILY RF: 0 Liver Aid 2 tab PO DAILY RF: 0 cranberry 2 tab PO QAM RF: 0 black cohosh 40 mg Tablet 40 mg PO BID RF: 0 albuterol sulfate 90 mcg/actuation Hfa Aerosol Inhaler 2 puff INHALATION TID PRN (Reason: Shortness Of Breath) RF: 0 amlodipine 10 mg Tablet 10 mg PO DAILY RF: 0 insulin lispro [Admelog U-100 Insulin lispro] 100 unit/mL Solution See Rx Instructions .ROUTE .COMPLEX RF: 0 Held furosemide [Lasix] 20 mg tablet 40 mg PO EVERY OTHER DAY RF: 0 Hold Instructions: Resume on 03/27/20. methotrexate sodium 2.5 mg tablet 10 mg PO .Q7days Qty: 20 RF: 3 Hold Instructions: Resume on 03/28/20. Discharge Orders: Discharge Order (Routine); Ordered 03/22/20 Ordered By: Milton Blandon Referrals: Jada Gandhi MD [Primary Care Provider] - 4-7 days Discharge Diet: Cardiac and Diabetic Discharge Activity: Resume usual activity, Increase activity as tolerated and Oxygen as instructed Activity Restrictions/Additional Instructions: For the next 4 days instead of Lasix please take bumetanide. Then may resume Lasix again. Please follow-up with your primary care doctor to reassess whether Lasix dose needs to be changed. If you notice lower extremity swelling, or weight gain more than 3 pounds in 2 days, please contact your primary care office. Please monitor your heart rates, write down pulse rate 3 times daily, bring the log to your primary care doctor's appointment. Please closely follow up with your primary care doctor with regards to diabetes. For now due to urinary tract infection methotrexate is held. Antibiotic may need to be adjusted depending on final urinary culture results. Please continue oxygen as previously, target saturation 88-92%. Discharge Attestations Time Spent in Discharge Care*: greater than 30 min Status at Discharge: Cognitive status at discharge: cognitively intact, Behavioral status at discharge: cooperative, Quality Metrics Clinical Quality Measures During this hospital stay, did patient experience: None Coding Level of Care Code Acute Mounter Smoking Pipe for Dougie Beauchampd Diagnoses Narrow complex tachycardia I47.1 CHF exacerbation I50.9 UTI (urinary tract infection) N39.0 Poorly controlled diabetes mellitus E11.65
--- NOTE | 2020-03-22 10:10 | PC.CHAP ---
Pastoral Care Encounter/Spiritual Assessment Type of Contact [] Declined leather tooler visit [] Patient/Family/Request visit [] Outpatient visit [] Follow-up visit [] Physician referral [] Code/Alert [x] Routine visit [] Staff referral [] Actively dying [] Patient sleeping [] Family support [] [] Out of room [] Palliative care [] [] Receiving care in room [] Pre-surgical visit [] Trauma [] Long length of stay [] ICU visit [] Other: Relational/Emotional Strength [] Patient feels connected with others/family/visitors/staff [] Distress [] Loneliness/isolation [] Abandonment Spirituality of Patient [] Person of Joelle [] Attends Episcopalian of their Joelle [] Believes in Prayer [] Reads Bible or Nondenominational materials [] There are Spiritual issues to be addressed Sanitarian Inspector Interventions [x] Prayer [x] Active listening [x] Non-anxious presence [x] Spiritual/emotional support [] Crisis/trauma care [] Spiritual counseling [] Bereavement support [] Provided bereavement packet [] Provided Bible/devotional materials [] Provided toy/stuffed animal, coloring book to patient or family member [] Provided Communion [] Anointing/[place] [] Salvation [x] Completed spiritual assessment [] Other: Impact on Illness or Injury [] Angry [] Fearful [] Anxious [] Often cries [] Exhaustion [] Unable to work [] Unable to attend presybeterian [] Unable to walk/stand [] Unable to read [] Unable to drive [] Unable to eat/drink [] Unable to sleep [] Unable to be with family [] Patient intubated [] Other: Summary Patient feeling better. Pressure being addressed. Time spent with patient 10 min
[2020-03-22] MEDS: atorvastatin 40 mg Tablet PO (10:11)
[2020-03-22] MEDS: bumetanide 1 mg Tablet PO (10:12)
[2020-03-22] MEDS: digoxin 125 mcg Tablet PO (10:12)
[2020-03-22] MEDS: HYDROcodone-acetaminophen 5-325 mg Tablet 1 TAB PO ×3 (10:14→21:07)
[2020-03-22] MEDS: metoprolol tartrate 50 mg Tablet 100 MG PO ×2 (10:14→17:55)
[2020-03-22] MEDS: levothyroxine 50 mcg Tablet PO (10:16)
[2020-03-22] MEDS: predniSONE 5 mg Tablet PO (10:16)
[2020-03-22] MEDS: pantoprazole DR 40 mg Tablet PO ×2 (10:16→17:55)
[2020-03-22] MEDS: levothyroxine 125 mcg Tablet PO (10:16)
[2020-03-22 11:14] LABS: Glucose Point of Care 283 mg/dL (70-110)
--- NOTE | 2020-03-22 12:18 | PC.RESP ---
Pulmonary Rehab information sent to patient.
[2020-03-22 16:15] LABS: Glucose Point of Care 314 mg/dL (70-110)
--- NOTE | 2020-03-22 16:19 | ECG_ITS ---
[facility] Test Date: 2020-03-22 Pat Name: Myesha Parker Department: Room: 112 Gender: Female Pearl Maker: : 1950 Requested By: Milton Blandon Order Number: [id number] Wilbur MD: Lucia Oakley M.D. Measurements Intervals [place] Rate: 107 P: SC: -1 QRS: -69 QRSD: 146 T: 38 QT: 441 QTc: 591 Interpretive Statements ATRIAL FLUTTER WITH RAPID VENTRICULAR RESPONSE RIGHT BUNDLE BRANCH BLOCK LEFT ANTERIOR FASCICULAR BLOCK MODERATE VOLTAGE CRITERIA FOR LVH, CONSIDER NORMAL VARIANT POSSIBLE SEPTAL MYOCARDIAL INFARCTION, OF INDETERMINATE AGE Compared to ECG 03/22/2020 16:42:00 Atrial fibrillation no longer present Myocardial infarct finding still present Electronically Signed On 03-23-2020 12:35:11 CDT by Lucia Oakley M.D. [email or web address].RealtySharesmethodist rehabilitation centerkapturemupper valley medical center.[employer]/store/[id number]
--- NOTE | 2020-03-22 16:20 | ECG_ITS ---
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 Measurements Intervals [place] Rate: 115 P: RI: -1 QRS: -75 QRSD: 157 T: 32 QT: 392 QTc: 544 Interpretive Statements ATRIAL FIBRILLATION WITH RAPID VENTRICULAR RESPONSE RIGHT BUNDLE BRANCH BLOCK LEFT ANTERIOR FASCICULAR BLOCK MODERATE VOLTAGE CRITERIA FOR LVH, CONSIDER NORMAL VARIANT POSSIBLE SEPTAL MYOCARDIAL INFARCTION Compared to ECG 03/21/2020 01:07:30 Myocardial infarct finding now present Sinus rhythm no longer present First degree AV block no longer present Electronically Signed On 03-22-2020 20:35:43 CDT by Lucia Oakley M.D. [email or web address].VanceInfo Technologiesclaiborne county medical centerAgentPiggybethesda north hospital.[employer]/store/[id number]
--- NOTE | 2020-03-22 16:28 | PC.NURSE ---
Patient appealing her Discharge Pt stated she is not ready to go home. She said, I still don't feel good. I don't know why I'm still sleepy. Reported to doctor that her HR has been in the upper 110-123, Afib. Pt reports of mild chest pressure. Her Blood sugar ranges from upper 200-300s Per doctor discussion, we will get an EKG, Troponin series, start long acting insulin. hot iron worker Linda notified regarding her appeal of discharge. Will keep monitoring.
[2020-03-22 17:26] LABS: Troponin(5th) Baseline 26 ng/L (0-10)
[2020-03-22] MEDS: nystatin cream 30 gm 1 APPLIC TOPICAL (18:00)
--- NOTE | 2020-03-22 18:20 | ECG_ITS ---
[facility] Test Date: 2020-03-22 Pat Name: Myesha Parker Department: Room: 112 Gender: Female Automatic Grinding Machine Operator: : 1950 Requested By: Milton Blandon Order Number: [id number] Wilbur MD: Lucia Oakley M.D. Measurements Intervals [place] Rate: 79 P: 35 SD: 222 QRS: -67 QRSD: 144 T: 66 QT: 421 QTc: 484 Interpretive Statements SINUS RHYTHM WITH FIRST DEGREE AV BLOCK RIGHT BUNDLE BRANCH BLOCK LEFT ANTERIOR FASCICULAR BLOCK LEFT VENTRICULAR HYPERTROPHY AND ST-T CHANGE POSSIBLE SEPTAL MYOCARDIAL INFARCTION,OF INDETERMINATE AGE Compared to ECG 03/22/2020 16:43:45 First degree AV block now present ST (T wave) deviation now present Atrial flutter no longer present Myocardial infarct finding still present Electronically Signed On 03-22-2020 21:35:47 CDT by Lucia Oakley M.D. [email or web address].Selenokhodmemorial hospital of gardena.[employer]/store/[id number]
[2020-03-22 18:51] LABS: Troponin 5 2HR 26.55 ng/L (0-10); Troponin 5 2HR Delta 0.55 ABS# (0-10)
[2020-03-22 20:46] LABS: Glucose Point of Care 292 mg/dL (70-110)
[2020-03-22] MEDS: enoxaparin 40 mg/0.4 mL Syringe SUBCUT (21:07)
[2020-03-22] MEDS: aspirin 81 mg EC Tablet PO (21:07)
[2020-03-22] MEDS: cefTRIAXone 1,000 MG in sodium chloride 0.9% (plus) 50 ML 100 MG IV (21:08)
[2020-03-22] MEDS: insulin glargine 100 units/1 mL 15 UNIT SUBCUT (21:08)
--- NOTE | 2020-03-22 22:20 | ECG_ITS ---
[facility] Test Date: 2020-03-22 Pat Name: Myesha Parker Department: Room: 112 Gender: Female Family And Divorce Legal Assistant: : 1950 Requested By: Milton Blandon Order Number: [id number] Reading MD: Tim Mckay M.D. Measurements Intervals [place] Rate: 77 P: 67 ID: [id number] QRS: -62 QRSD: 148 T: 114 QT: 451 QTc: 513 Interpretive Statements SINUS RHYTHM WITH FIRST DEGREE AV BLOCK RIGHT BUNDLE BRANCH BLOCK [120+ ms QRS DURATION, UPRIGHT V1, 40+ ms S IN I/aVL/V4/V5/V6] LEFT ANTERIOR FASCICULAR BLOCK [QRS AXIS <= -45, QR IN I, RS IN II] LEFT VENTRICULAR HYPERTROPHY AND ST-T CHANGE [VOLTAGE CRITERIA PLUS ST/T ABNORMALITY] Compared to ECG 03/22/2020 18:29:49 Myocardial infarct finding no longer present ST (T wave) deviation still present Electronically Signed On 03-23-2020 20:44:33 CDT by Tim Mckay M.D. [email or web address].[facility]ntLivepar[facility].[employer]/store/[id number]
[2020-03-22 22:36] LABS: Troponin 5 6HR 24.54 ng/L (0-10); Troponin 5 6HR Delta -1.46 ng/L (0-12)
--- NOTE | 2020-03-23 00:37 | PC.NURSE ---
Patient does not have any complaints at this time. Will monitor.
[2020-03-23 03:55] VITALS: BP 166/80; PULSE 77; RESP 16; TEMP 36.8; O2SAT 90
--- NOTE | 2020-03-23 03:59 | PC.NURSE ---
Dr. Robert notified of patient asking for Benadryl for a runny nose.
[2020-03-23] MEDS: ARIPiprazole 10 mg Tablet 5 MG PO (04:38)
[2020-03-23] MEDS: diphenhydrAMINE 25 mg Capsule PO (04:38)
[2020-03-23] MEDS: duloxetine 30 mg Capsule PO (04:39)
[2020-03-23 04:44] LABS: Basophils # 0.1 10^3/uL (0.0-0.1); Basophils % 0.7 %; Eosinophils # 0.1 10^3/uL (0.0-0.8); Eosinophils % 1.6 %; Hematocrit 30.2 % (37.0-47.0); Hemoglobin 9.5 g/dL (11.5-15.3); Lymphocytes # 1.5 10^3/uL (0.8-4.8); Lymphocytes % 21.1 %; Mean Corpuscular HGB Conc 31.5 g/dL (30.0-36.0); Mean Corpuscular Hemoglobin 30.2 pg (28.0-34.0); Mean Corpuscular Volume 95.9 fL (81-99); Mean Platelet Volume 9.6 fL (7.4-10.4); Monocytes # 0.8 10^3/uL (0.2-0.9); Monocytes % 11.2 %; Neutrophils # 4.47 10^3/uL (1.8-7.7); Nucleated Red Blood Cells % 0 %; Platelet Count 217 10^3/cmm (130-400); Red Blood Count 3.15 10^6/uL (4.1-5.3); Red Cell Distribution Width 15.5 % (12.1-15.1); White Blood Count 6.9 10^3/uL (4.0-10.0)
[2020-03-23 05:09] LABS: Alanine Aminotransferase 41 U/L (0-33); Albumin Level 3.5 g/dL (3.5-5.2); Alkaline Phosphatase 118 IU/L (35-105); Anion Gap 13.8 (5-19); Aspartate Amino Transferase 48 U/L (0-32); Blood Urea Nitrogen 29 mg/dL (8-23); Calcium 9.4 mg/dL (8.5-10.5); Carbon Dioxide 32 mmol/L (22-29); Chloride 100 mmol/L (98-107); Glucose 256 mg/dL (65-115); Osmolality Calculated 300 mOsm/kg (285-295); Potassium 3.8 mmol/L (3.5-5.1); Sodium 142 mmol/L (136-145); Total Bilirubin 0.2 mg/dL (0.15-1.2); Total Protein 6.5 g/dL (6.6-8.7)
[2020-03-23 06:41] LABS: Glucose Point of Care 281 mg/dL (70-110)
[2020-03-23 08:12] VITALS: BP 124/69; PULSE 77; RESP 27; TEMP 36.6; O2SAT 97
[2020-03-23] MEDS: levothyroxine 125 mcg Tablet PO (08:42)
[2020-03-23] MEDS: levothyroxine 50 mcg Tablet PO (08:42)
[2020-03-23] MEDS: predniSONE 5 mg Tablet PO (08:43)
[2020-03-23] MEDS: atorvastatin 40 mg Tablet PO (08:43)
[2020-03-23] MEDS: metoprolol tartrate 50 mg Tablet 100 MG PO (08:43)
[2020-03-23] MEDS: bumetanide 1 mg Tablet PO (08:43)
[2020-03-23] MEDS: pantoprazole DR 40 mg Tablet PO (08:43)
[2020-03-23 08:44] VITALS: PULSE 74
[2020-03-23] MEDS: HYDROcodone-acetaminophen 5-325 mg Tablet 1 TAB PO (08:44)
[2020-03-23] MEDS: digoxin 125 mcg Tablet PO (08:44)
[2020-03-23] MEDS: nystatin cream 30 gm 1 APPLIC TOPICAL (08:45)
--- NOTE | 2020-03-23 08:47 | PM.PN ---
Subjective Subjective: Interval history: Please refer to DC summary from 03/22. No changes overnight. Short episode of fast heart rate resolved yesterday afternoon. Discharge was held due to AFib w RVR. She has remained in NSR since receiving her night time medications yesterday and have finalized urine cultures today. She is feeling well and much more secure about returning home. Vitals/I&O/Wt Last Vital Signs Temp 97.9 F 03/23/20 08:12 Pulse 74 03/23/20 08:44 Resp 27 H 03/23/20 08:12 BP 124/69 03/23/20 08:12 Pulse Ox 97 03/23/20 08:12 03/22/20 03/23/20 03/23/20 22:59 06:59 14:59 Intake Total 290 / 770 400 / 1170 Output Total 1200 / 1800 400 / 2200 Balance -910 / -1030 0 / -1030 Physical Exam Const: COMMON NORMALS: no acute distress and patient oriented x3 NUTRITIONAL APPEARANCE: overweight HENMT: COMMON NORMALS: oropharynx normal Neck/C-Spine: COMMON NORMALS: no JVD Resp: COMMON NORMALS: normal respiratory effort and clear to auscultation bilaterally AUSCULTATION: clear to auscultation bilaterally Cardio: COMMON NORMALS: no JVD, regular rhythm, S1 normal heart sound present, S2 normal heart sound present and No murmurs present (Cardio) RHYTHM: regular rhythm HEART SOUNDS: S1 normal heart sound present and S2 normal heart sound present GI: COMMON NORMALS: Normal to inspection, nondistended, normoactive bowel sounds present, Soft to palpation and non-tender PALPATION: Yes Soft to palpation Extremity: COMMON NORMALS: no joint enlargement and no pedal edema Neuro: COMMON NORMALS: patient oriented x3 and moves all extremities Skin: COMMON NORMALS: no rashes or lesions noted GENERAL SKIN EXAM: no rashes or lesions noted Data : 03/23/20 03:20 03/23/20 03:20 Micro: Microbiology 03/20/20 19:52 Urine Culture - Final Urine,Voided Escherichia coli A&P Assessment and plan (1) Narrow complex tachycardia: AFib w RVR episode yesterday afternoon. Resolved with her evening medication and remained in SR through today. This may be transient given UTI, however, she is agreeable to follow up with her [employer] ax consultant in office for reassessment and consideration whether any additional adjustments need to be made to her medicines. She understands to monitor her hear rates closely at home and return to the hospital in case of persistently high rhythm, chest pain or other concerning symptoms. Continue metoprolol, digoxin. CTA with no evidence of pulmonary embolism. Status: Acute (2) CHF exacerbation: She is to complete a short course of Bumex after discharge, and subsequently transitioning back to her usual Lasix regimen with outpatient reassessment for diastolic heart failure. Status: Acute (3) UTI (urinary tract infection): E. coli, appears to be similar organism as on prior culture in November. She would like to follow-up in outpatient side with primary care provider for additional assessment for possible age-related vulvar atrophy, or consideration possibly of referral to urology given some recurrence of urinary tract infections recently, states before used to pretty much never get them. Hold methotrexate while undergoing treatment for UTI. Status: Acute (4) Poorly controlled diabetes mellitus: No signs of DKA/HHS. Continue close outpatient follow-up. Status: Acute Additional A&P Information Atrial fibrillation: With paroxysmal A. fib with RVR. Continues on metoprolol, digoxin. Continues on aspirin for stroke prophylaxis. Follw up with cardiology in office. COPD. Chronically on 2 L of oxygen. No evidence of exacerbation. Does report occasional wheezing episodes at home. Says she has inhalers available. Would like to discuss with PCP consideration for referral to pulmonology. History of fibromyalgia Morbid obesity Hypothyroidism History of inflammatory arthritis for which she is on prednisone and receives methotrexate. Holding methotrexate currently secondary to active infection. Attestations Medical Necessity Statement*: She feels secure in returning home today to further follow up in office. Coding Level of Care Code Acute [employer]isher for Chg Fwd Diagnoses Narrow complex tachycardia I47.1 CHF exacerbation I50.9 UTI (urinary tract infection) N39.0 Poorly controlled diabetes mellitus E11.65
[2020-03-23 08:55] VITALS: PULSE 73; RESP 18; O2SAT 98
--- NOTE | 2020-03-23 09:21 | PC.NURSE ---
Patient no longer wishes to appeal discharge. Patient states she feels safe to go home. Patient's will be contacted for transportation.
--- NOTE | 2020-03-23 09:33 | PC.SOCIAL ---
IMM Update Pg. 2 of IMM updated.
[2020-03-23 10:22] VITALS: BP 124/69; PULSE 73; RESP 18; TEMP 36.6; O2SAT 98
--- NOTE | 2020-03-23 10:46 | PC.NURSE ---
Discharge instructions given per the physician's orders. Patient verbalized understanding of CHF/ chest pain stoplight and medication changes. Patient did not have any further questions. IV was removed. Patient's will be here around [id number] to take the patient home. Nurse to continue to monitor.
[2020-03-23 11:31] LABS: Glucose Point of Care 282 mg/dL (70-110)
[2020-03-23 12:00] VITALS: BP 174/99; PULSE 79; RESP 22; TEMP 36.7; O2SAT 97
--- NOTE | 2020-03-23 16:46 | PC.NURSE ---
Patient wheeled to private vehicle at [place]. brought portable o2 tank to wear home.
[2020-03-23 16:47] LABS: Glucose Point of Care 330 mg/dL (70-110)
--- NOTE | 2020-03-24 12:59 | PC.SOCIAL ---
03/22/2020 Late Entry- Patient appealed Discharge around 5:30pm. Obtained Case Number for appeal [id number] with cover sheet. Faxed all requested information to [facility]. Patient reviewed Detailed notice of discharge and signed prior to sending. Provided patient with copy. 03/23/2020 Late Entry-[facility] called with update yesterday late afternoon around 4:45 pm. The disagree with the determination that patient was safe to discharge on 03/22/2020 Based on ongoing tachycardia and symptoms. All obvious causes ruled out and was their opinion further monitoring was needed. Updated Dr Blandon of the determination. He verbalized understanding and indicates patient heart rate has been sinus rhythm overnight and today. Nurse Diamond verified same. Updated patient that the QIO agreed with her and not ready for discharge. Explained patient does not have to go home if does not want. After the following morning on 03/24/2020 the provider decides to discharge and again patient feels she is not ready and well enough to go she has another option to appeal. Patient verbalized appreciation of all the efforts and assistance with appeal and also indicates she does feel much better today and would like to go home. This nurse explained in presence of patient care nurse she is not required to do so and reiterated patient options. Patient was sitting up on side of bed more conversant than yesterday and seems to be more active. Patient again states I believe I can go today. I know my body and knew yesterday, had I left I would be right back here . 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 No further questions or concerns voiced by patient. Updated she does plan on discharging today.
== END 2020-03-23 16:47 | disposition home or self-care (01) | DRG 291 ==
LOC: ER 18:24 → CSU 21:43
PROVIDERS: Emergency Medicine; Internal Medicine; Admitting Provider Internal Medicine; PCP Family Medicine; Visit Provider Internal Medicine
DX: I13.0 Hypertensive heart and chronic kidney disease with heart failure and stage 1 through stage 4 chronic kidney disease, or unspecified chronic kidney disease (principal); I50.31 Acute diastolic (congestive) heart failure; I47.1 Supraventricular tachycardia; N39.0 Urinary tract infection, site not specified; N17.9 Acute kidney failure, unspecified; N18.3 Chronic kidney disease, stage 3 (moderate); M79.7 Fibromyalgia; E11.22 Type 2 diabetes mellitus with diabetic chronic kidney disease; E03.9 Hypothyroidism, unspecified; J44.9 Chronic obstructive pulmonary disease, unspecified; Z99.81 Dependence on supplemental oxygen; M06.9 Rheumatoid arthritis, unspecified; E11.65 Type 2 diabetes mellitus with hyperglycemia; Z79.82 Long term (current) use of aspirin; I48.91 Unspecified atrial fibrillation; B96.20 Unspecified Escherichia coli [E. coli] as the cause of diseases classified elsewhere; E66.01 Morbid (severe) obesity due to excess calories; Z68.38 Body mass index [BMI] 38.0-38.9, adult; F41.8 Other specified anxiety disorders; M17.0 Bilateral primary osteoarthritis of knee; Z87.891 Personal history of nicotine dependence
CPT/HCPCS: 12345; 36415; 36416; 71045; 71275; 80053; 80162; 81001; 81003; 82962; 83036; 83735; 83880; 84443; 84484; 85025; 85610; 85730; 87077; 87086; 87186; 93005; 96372; 96375; 99284; J0696; J1650; J1815 ×2; J3490; J7512; Q9967

== ENCOUNTER 2020-04-01 13:47 | Outpatient (CLI) | payer MEDICARE, SELFPAY ==
--- NOTE | 2020-04-01 14:45 | XR_ITS ---
WS: [id number] SCREENING DEXA SCAN [employer] CLINICAL INFORMATION: Osteoporosis, on Fort[employer] x2yrs. States last DEXA 2007 COMPARISON: None. FINDINGS: The L1-L4 bone mineral density measures 1.700 g/cm2. This corresponds to a T score score of 4.3 and Z score of 4.9. Left femoral neck bone mineral density measures 1.183 g/cm2. This corresponds to a T score of 1.4 and Z score of 2.1. Right femoral neck bone mineral density measures 1.167 g/cm2. This corresponds to a T score 1.3of and Z score of 2.0. Mean femoral neck bone mineral density measures 1.175 g/cm2. This corresponds to a T score of 1.3 and Z score of 2.0. XR/XR DEXA axial skeleton* [id number] IMPRESSION: Normal bone mineralization. Patient's FRAX calculated 10 year probability for major osteoporotic fracture i s 15.1 % and osteoporotic hip fracture is 1.3%.
== END 2020-04-01 13:48 | disposition home or self-care (01) ==
LOC: RADWPI 13:51
PROVIDERS: Family Provider Family Medicine; PCP Family Medicine; Visit Provider Internal Medicine Rheumatology
DX: M81.0 Age-related osteoporosis without current pathological fracture (principal)
CPT/HCPCS: 77080

== ENCOUNTER 2020-04-01 14:15 | Outpatient (CLI) | payer MEDICARE, SELFPAY | END 2020-04-01 14:16 | disposition home or self-care (01) | LOC: RADWPI 05-24 14:28 | PROVIDERS: PCP Family Medicine; Visit Provider Internal Medicine Rheumatology | DX: R06.02 Shortness of breath (principal); I50.33 Acute on chronic diastolic (congestive) heart failure | CPT/HCPCS: 80048; 83880 ==

== ENCOUNTER → 2020-04-13 13:31 | Outpatient (BNVA) | payer MEDICARE, SELFPAY | PROVIDERS: Family Provider Family Medicine; PCP Internal Medicine; Visit Provider Anesthesiology | DX: M54.42 Lumbago with sciatica, left side (principal); M54.41 Lumbago with sciatica, right side; M17.0 Bilateral primary osteoarthritis of knee; Z79.891 Long term (current) use of opiate analgesic | CPT/HCPCS: 99214 ==

== ENCOUNTER → 2020-04-15 07:48 | Outpatient (BNVA) | payer MEDICARE, SELFPAY | PROVIDERS: Family Provider Family Medicine; PCP Internal Medicine; Visit Provider Nurse Practitioner Psychiatric/Mental Health | DX: F43.12 Post-traumatic stress disorder, chronic (principal); F33.3 Major depressive disorder, recurrent, severe with psychotic symptoms; I50.42 Chronic combined systolic (congestive) and diastolic (congestive) heart failure; J44.9 Chronic obstructive pulmonary disease, unspecified; I10 Essential (primary) hypertension; M79.7 Fibromyalgia; M19.90 Unspecified osteoarthritis, unspecified site | CPT/HCPCS: G0463 ==

== ENCOUNTER → 2020-05-05 09:12 | Outpatient (BNVA) | payer MEDICARE, SELFPAY | PROVIDERS: PCP Family Medicine; Visit Provider Internal Medicine Rheumatology | DX: M06.041 Rheumatoid arthritis without rheumatoid factor, right hand (principal); M06.042 Rheumatoid arthritis without rheumatoid factor, left hand; M17.0 Bilateral primary osteoarthritis of knee; M79.7 Fibromyalgia; M81.0 Age-related osteoporosis without current pathological fracture; M47.26 Other spondylosis with radiculopathy, lumbar region; M47.892 Other spondylosis, cervical region; M48.061 Spinal stenosis, lumbar region without neurogenic claudication; Z79.899 Other long term (current) drug therapy | CPT/HCPCS: 99214 ==

== ENCOUNTER → 2020-06-09 10:38 | Outpatient (BNVA) | payer MEDICARE, SELFPAY | PROVIDERS: Family Provider Family Medicine; PCP Internal Medicine; Visit Provider Anesthesiology | DX: M54.5 Low back pain (principal); Z79.891 Long term (current) use of opiate analgesic | CPT/HCPCS: 99213; 99214 ==

== ENCOUNTER → 2020-06-10 07:27 | Outpatient (BNVA) | payer MEDICARE, SELFPAY | PROVIDERS: Family Provider Family Medicine; PCP Internal Medicine; Visit Provider Nurse Practitioner Psychiatric/Mental Health | DX: F43.12 Post-traumatic stress disorder, chronic (principal); F33.3 Major depressive disorder, recurrent, severe with psychotic symptoms | CPT/HCPCS: 99212 ==

== ENCOUNTER 2020-07-20 17:08 | Emergency (ER) | payer MEDICARE, SELFPAY ==
[2020-07-20 17:09] VITALS: BP 129/72; PULSE 65; RESP 18; TEMP 37; O2SAT 97; BMI 39.8
--- NOTE | 2020-07-20 17:23 | CTR_ITS ---
PROCEDURE INFORMATION: Exam: CT Maxillofacial Without Contrast Exam date and time: 07/20/2020 6:17 PM Age: 69 years old Clinical indication: Injury or trauma; Fall; Blunt trauma (contusions or hematomas); Forehead and orbit/periorbital; Right TECHNIQUE: Imaging protocol: Computed tomography images of the face without contrast. Radiation optimization: All CT scans at this facility use at least one of these dose optimization techniques: automated exposure control; mA and/or kV adjustment per patient size (includes targeted exams where dose is matched to clinical indication); or iterative reconstruction. COMPARISON: No relevant prior studies available. RADIATION DOSE METRICS: Total DLP (mGy-cm): 714.01 FINDINGS: Orbital cavity: Orbits are normal. Globes are unremarkable. Bones/joints: No acute fracture. Paranasal sinuses: Normal. No air-fluid levels. Soft tissues: Unremarkable. CT/CT facial bones wo con* [id number] IMPRESSION: No acute findings. Radiation Dose CTDIVOL = (mGy): DLP = 714.01 (mGy-cm)
--- NOTE | 2020-07-20 17:23 | CTR_ITS ---
PROCEDURE INFORMATION: Exam: CT Head Without Contrast Exam date and time: 07/20/2020 6:17 PM Age: 69 years old Clinical indication: Injury or trauma; Fall; Blunt trauma (contusions or hematomas) TECHNIQUE: Imaging protocol: Computed tomography of the head without contrast. Radiation optimization: All CT scans at this facility use at least one of these dose optimization techniques: automated exposure control; mA and/or kV adjustment per patient size (includes targeted exams where dose is matched to clinical indication); or iterative reconstruction. COMPARISON: CT head wo con* [id number] 12/24/2019 3:56 AM RADIATION DOSE METRICS: Total DLP (mGy-cm): 870.96 FINDINGS: Brain: No evidence of active or acute intracranial pathologic process, hemorrhage, or trauma. CliNo visible evidence of diffuse cerebral edema or generalized demyelination. No mass effect. No midline shift. Mild small vessel ischemic disease with senile periventricular leukomalacia. Atrophic changes not inconsistent with the patient's chronological age. Cerebral ventricles: No ventriculomegaly. Bones/joints: Unremarkable. No acute fracture. Paranasal sinuses: Visualized sinuses are unremarkable. No fluid levels. Mastoid air cells: Visualized mastoid air cells are well aerated. Soft tissues: Unremarkable. CT/CT head wo con* [id number] IMPRESSION: No evidence of active or acute intracranial pathologic process, hemorrhage, or trauma. Radiation Dose CTDIVOL = (mGy): DLP = 870.96 (mGy-cm)
--- NOTE | 2020-07-20 17:23 | CTR_ITS ---
PROCEDURE INFORMATION: Exam: CT Cervical Spine Without Contrast Exam date and time: 07/20/2020 6:17 PM Age: 69 years old Clinical indication: Injury or trauma; Fall; Blunt trauma TECHNIQUE: Imaging protocol: Computed tomography images of the cervical spine without contrast. Radiation optimization: All CT scans at this facility use at least one of these dose optimization techniques: automated exposure control; mA and/or kV adjustment per patient size (includes targeted exams where dose is matched to clinical indication); or iterative reconstruction. COMPARISON: CT Cervical Spine wo* [id number] 07/02/2019 10:24 PM RADIATION DOSE METRICS: Total DLP (mGy-cm): 870.74 FINDINGS: Bones/joints: No visible fracture, subluxation, or dislocation. Mild reversal normal cervical lordosis. Advanced degenerative disease and degenerative disc disease with spondylosis deformans C4/5, C5/C6, and C6/C7. Osteopenia. Facet arthrosis. Discs/Spinal canal/Neural foramina: No significant disc protrusion. No severe spinal canal stenosis. No significant neural foraminal narrowing. Soft tissues: Unremarkable. Lungs: Lung apices are normal. CT/CT cervical spin wo con* [id number] IMPRESSION: No acute findings. Radiation Dose CTDIVOL = (mGy): DLP = 870.74 (mGy-cm)
--- NOTE | 2020-07-20 17:27 | XR_ITS ---
WS: [id number] XR wrist LT min 3V* [id number] REASON FOR EXAM: injury FINDINGS: There are severe degenerative arthropathic change in the carpal metacarpal joint of the left thumb wi th complete loss of joint space, subchondral sclerosis and cystic change. Lateral subluxation of the left first metacarpal. Degenerative cystic changes also seen within the navicular bone. On the lateral view of the wrist only there is a suggestion of a small avulsion fracture from the miguelangel sum of a carpal bone. This should be correlated with point tenderness. Extensive vascular calcification. XR/XR wrist LT min 3V* [id number] IMPRESSION: Possible small evulsion fracture from the dorsum of a carpal bone as above. Severe degenerative arthropathy of the carpometacarpal joint of the left thumb.
--- NOTE | 2020-07-20 17:27 | XR_ITS ---
WS: [id number] XR knee LT 3V* [id number] REASON FOR EXAM: injury FINDINGS: Total left knee arthroplasty. Surgical appliance and bony structure are in proper position and alignment. No fracture or other acute abnormality. XR/XR knee LT 3V* [id number] IMPRESSION: Total left knee arthroplasty without acute abnormality.
--- NOTE | 2020-07-20 17:27 | XR_ITS ---
WS: [id number] XR ankle RT min 3V* [id number] REASON FOR EXAM: injury FINDINGS: The ankle mortise is preserved. No fracture or other focal bony abnormality. Accessory ossicle adjacent to the medial malleolus. Soft tissue swelling around the ankle. XR/XR ankle RT min 3V* [id number] IMPRESSION: No fracture or dislocation.
--- NOTE | 2020-07-20 17:30 | ED_ITS ---
HPI - Fall General: Chief Complaint: Fall Stated Complaint: FALL/HEAD AND EXTREMITY INJURIES Time Seen by Provider: 07/20/20 17:24 Source: patient Mode of arrival: ambulatory History of Present Illness: HPI Narrative: 69-year-old female states she tripped today and fell. She fell roughly 3:00. States she struck her head and has had along with face pain and neck pain. She does have a contusion over the left side of her face. States she also has left wrist pain along with left knee pain and right ankle pain. She has been able to ambulate. She has slight bilateral shoulder pain as well. She rates her pain a 4 out of 10 but states that her head pain is much the worst. MD complaint: fall Associated symptoms-after fall: Reports headache(s) and neck pain; Denies abdominal pain or chest pain Review of Systems Const: Denies: fever(s), chills, body aches or change in appetite Eyes: Denies: blurry vision or eye discomfort ENMT: Denies: throat pain or dental pain Card: Denies: chest pain Resp: Denies: dyspnea GI: Denies: abdominal pain, nausea, vomiting or diarrhea : Denies: dysuria Musc: Reports: neck pain, extremity pain and joint pain Skin/Breast: Denies: rash Neuro: Reports: headache(s) Psych: Denies: depression [place]/Lymph: Denies: easy bruising All/Imm: Denies: urticaria PFSH ED PFSH: Medical History Acute on chronic diastolic (congestive) heart failure Anxiety and depression Cholecystectomy planned Chronic combined systolic and diastolic CHF (congestive heart failure) COPD (chronic obstructive pulmonary disease) Oxygen dependent, 2 L at baseline Encounter for long-term opiate analgesic use Fibromyalgia High risk medication use Hyperlipidemia Hypertension Hypothyroidism Immunization counseling Inflammatory arthritis Intermittent atrial fibrillation Intermittent atrial fibrillation Because the patient history of frequent fall she was thought to be high risk for bleeding complications. So she is taking only the aspirin at this time. SHE HAS EASY BRUISING WELL Left renal mass Liver cirrhosis Low back pain of over 3 months duration Morbid obesity She has limited activity tolerance and exertional dyspnea, which affects her ability to exercise and participate in physical activities. Opioid contract exists Osteoarthritis of knees, bilateral Polypharmacy Recurrent UTI Seronegative rheumatoid arthritis of both hands Urgency incontinence Surgical History History of cardiac cath History of hysterectomy History of knee replacement History of thyroid surgery Family History Other CAD (coronary artery disease) Cancer Denies family history of Anesthesia complication Bleeding disorder Social History Smoking and tobacco status: former smoker Quit status (tobacco): has quit using tobacco Year quit tobacco: 2005 Second hand smoke exposure: No Alcohol intake: never Adopted: No Caregiver/support person: No Lives independently: No Household members: spouse Marital status: Current occupational status: retired History of recent travel: No Current gender identity: Female Physical Exam Const: COMMON NORMALS: no acute distress, patient oriented x3 and healthy appearing HENMT: COMMON NORMALS: normocephalic HEAD & SCALP: normocephalic OTHER: Contusion over left forehead and face Eye: COMMON NORMALS: Equal, round and reactive pupils present and EOMs intact bilaterally PUPIL: Yes Equal, round and reactive pupils present Neck/C-Spine: OTHER: Neck tenderness Chest: COMMONS NORMALS: normal inspection of the chest and normal palpation of entire chest wall Resp: COMMON NORMALS: normal respiratory effort, No retractions, No use of accessory muscles and clear to auscultation bilaterally AUSCULTATION: clear to auscultation bilaterally Cardio: COMMON NORMALS: regular rate, regular rhythm and No murmurs present (Cardio) RATE: regular rate RHYTHM: regular rhythm GI: COMMON NORMALS: Normal to inspection, nondistended, normoactive bowel sounds present, Soft to palpation, non-tender and no masses PALPATION: Yes Soft to palpation Extremity: COMMON NORMALS: normal to inspection and full ROM OTHER: Some tenderness to bilateral shoulders along with knees and wrist with no obvious deformities. Neuro: COMMON NORMALS: patient oriented x3, moves all extremities and no focal motor deficits Psych: COMMON NORMALS: mental status grossly normal, Normal thought process present and cooperative THOUGHT PROCESS: Normal thought process present Skin: COMMON NORMALS: no rashes or lesions noted and no wounds GENERAL SKIN EXAM: no rashes or lesions noted Course Vital Signs: Vital signs: Vital Signs Temperature 98.6 F 07/20/20 17:09 Pulse Rate 65 07/20/20 17:09 Respiratory Rate 18 07/20/20 17:09 Blood Pressure 129/72 07/20/20 17:09 Pulse Oximetry 97 07/20/20 17:09 MDM - Fall MDM Narrative: Medical decision making narrative: Patient presents here with contusion from a fall. Multiple x-rays and CTs that were all negative. Patient is able ambulate. She is stable for discharge and is to follow-up with her PCP and return if worsening. Imaging Data^: xr r ankle: Attestation: I personally reviewed and interpreted this imaging study as follows: My impression: no acute fx xr l knee: Attestation: I personally reviewed and interpreted this imaging study as follows: My impression: no acute fx CXR: Attestation: I personally reviewed and interpreted this imaging study as follows: My impression: no acute abnormality xr l wrist: Attestation: I personally reviewed and interpreted this imaging study as follows: My impression: no acute abnormality CT Head: Attestation: I personally reviewed and interpreted this imaging study as follows: Radiologist's impression: [facility] [address] [address] Scan Report Signed Patient: Myesha Parker Unit #: [id number] : 1950 Age/Sex: 69 / F ADM Date: 07/20/20 Loc: ER Room/Bed: Attending Dr: Ordering Provider/Ordering MD: Karma Garner MD Date of Service: 07/20/20 Procedure(s): CT head wo con* [id number] Accession Number(s): [id number] Report Number: [id number] PROCEDURE INFORMATION: Exam: CT Head Without Contrast Exam date and time: 07/20/2020 6:17 PM Age: 69 years old Clinical indication: Injury or trauma; Fall; Blunt trauma (contusions or hematomas) TECHNIQUE: Imaging protocol: Computed tomography of the head without contrast. Radiation optimization: All CT scans at this facility use at least one of these dose optimization techniques: automated exposure control; mA and/or kV adjustment per patient size (includes targeted exams where dose is matched to clinical indication); or iterative reconstruction. COMPARISON: CT head wo con* [id number] 12/24/2019 3:56 AM RADIATION DOSE METRICS: Total DLP (mGy-cm): 870.96 FINDINGS: Brain: No evidence of active or acute intracranial pathologic process, hemorrhage, or trauma. CliNo visible evidence of diffuse cerebral edema or generalized demyelination. No mass effect. No midline shift. Mild small vessel ischemic disease with senile periventricular leukomalacia. Atrophic changes not inconsistent with the patient's chronological age. Cerebral ventricles: No ventriculomegaly. Bones/joints: Unremarkable. No acute fracture. Paranasal sinuses: Visualized sinuses are unremarkable. No fluid levels. Mastoid air cells: Visualized mastoid air cells are well aerated. Soft tissues: Unremarkable. CT/CT head wo con* [id number] IMPRESSION: No evidence of active or acute intracranial pathologic process, hemorrhage, or trauma. ct c spine: Radiologist's impression: [facility] [address] [address] Scan Report Signed Patient: Myesha Parker Unit #: [id number] : 1950 Age/Sex: 69 / F ADM Date: 07/20/20 Loc: ER Room/Bed: Attending Dr: Ordering Provider/Ordering MD: Karma Garner MD Date of Service: 07/20/20 Procedure(s): CT cervical spin wo con* [id number] Accession Number(s): [id number] Report Number: [id number] PROCEDURE INFORMATION: Exam: CT Cervical Spine Without Contrast Exam date and time: 07/20/2020 6:17 PM Age: 69 years old Clinical indication: Injury or trauma; Fall; Blunt trauma TECHNIQUE: Imaging protocol: Computed tomography images of the cervical spine without contrast. Radiation optimization: All CT scans at this facility use at least one of these dose optimization techniques: automated exposure control; mA and/or kV adjustment per patient size (includes targeted exams where dose is matched to clinical indication); or iterative reconstruction. COMPARISON: CT Cervical Spine wo* [id number] 07/02/2019 10:24 PM RADIATION DOSE METRICS: Total DLP (mGy-cm): 870.74 FINDINGS: Bones/joints: No visible fracture, subluxation, or dislocation. Mild reversal normal cervical lordosis. Advanced degenerative disease and degenerative disc disease with spondylosis deformans C4/5, C5/C6, and C6/C7. Osteopenia. Facet arthrosis. Discs/Spinal canal/Neural foramina: No significant disc protrusion. No severe spinal canal stenosis. No significant neural foraminal narrowing. Soft tissues: Unremarkable. Lungs: Lung apices are normal. CT/CT cervical spin wo con* [id number] IMPRESSION: No acute findings. ct facial: Radiologist's impression: [address] [address] [address] Scan Report Signed Patient: Myesha Pakrer Unit #: [id number] : 1950 Age/Sex: 69 / F ADM Date: 07/20/20 Loc: ER Room/Bed: Attending Dr: Ordering Provider/Ordering MD: Karma Garner MD Date of Service: 07/20/20 Procedure(s): CT facial bones wo con* [id number] Accession Number(s): [id number] Report Number: [id number] PROCEDURE INFORMATION: Exam: CT Maxillofacial Without Contrast Exam date and time: 07/20/2020 6:17 PM Age: 69 years old Clinical indication: Injury or trauma; Fall; Blunt trauma (contusions or hematomas); Forehead and orbit/periorbital; Right TECHNIQUE: Imaging protocol: Computed tomography images of the face without contrast. Radiation optimization: All CT scans at this facility use at least one of these dose optimization techniques: automated exposure control; mA and/or kV adjustment per patient size (includes targeted exams where dose is matched to clinical indication); or iterative reconstruction. COMPARISON: No relevant prior studies available. RADIATION DOSE METRICS: Total DLP (mGy-cm): 714.01 FINDINGS: Orbital cavity: Orbits are normal. Globes are unremarkable. Bones/joints: No acute fracture. Paranasal sinuses: Normal. No air-fluid levels. Soft tissues: Unremarkable. CT/CT facial bones wo con* [id number] IMPRESSION: No acute findings. Radiation Dose CTDIVOL = (mGy): DLP = 714.0 Discharge Plan Discharge Patient Disposition: Home Clinical Impression: Fall Qualifiers: Encounter type: initial encounter Qualified Code(s): W19.XXXA - Unspecified fall, initial encounter CHI (closed head injury) Qualifiers: Encounter type: initial encounter Qualified Code(s): S09.90XA - Unspecified injury of head, initial encounter Condition: Stable Prescriptions: No Action garlic 1,000 mg capsule 1,000 mg PO DAILY RF: 0 ferrous gluconate 324 mg (37.5 mg iron) tablet 324 mg PO DAILY RF: 0 hydralazine 50 mg tablet 50 mg PO TID 30 Days Qty: 90 RF: 5 aspirin 325 mg tablet 325 mg PO BEDTIME RF: 0 metoprolol tartrate 50 mg tablet 100 mg PO BID RF: 0 Novolin 70/30 U-100 Insulin 100 unit/mL (70-30) suspension See Rx Instructions .ROUTE .COMPLEX RF: 0 folic acid 800 mcg tablet 0.8 mg PO DAILY RF: 0 methotrexate sodium 2.5 mg tablet 10 mg PO .Q7days Qty: 20 RF: 3 Hold Instructions: Resume on 03/28/20. pantoprazole [Protonix] 40 mg tablet,delayed release (DR/EC) 40 mg PO DAILY Qty: 30 RF: 3 sulfasalazine 500 mg tablet 0.5 gm PO BID Qty: 60 RF: 3 prednisone 2.5 mg tablet See Rx Instructions PO DAILY Qty: 45 RF: 3 furosemide [Lasix] 20 mg tablet 20 mg PO DAILY RF: 0 hydrocodone-acetaminophen 5-325 mg tablet 1 tab PO QID 30 Days Qty: 120 RF: 0 hydrocodone-acetaminophen 5-325 mg tablet 1 tab PO QID 30 Days Qty: 120 RF: 0 tramadol 50 mg tablet 100 mg PO QID PRN (Reason: pain) 30 Days Qty: 240 RF: 1 Abilify 5 mg tablet 5 mg PO QAM Qty: 30 RF: 1 buspirone 10 mg tablet 10 mg PO BID Qty: 60 RF: 1 duloxetine [Cymbalta] 30 mg capsule,delayed release(DR/EC) 30 mg PO QAM Qty: 30 RF: 1 duloxetine [Cymbalta] 60 mg capsule,delayed release(DR/EC) 60 mg PO QAM Qty: 30 RF: 1 levothyroxine 175 mcg capsule 175 mcg PO DAILY RF: 0 potassium chloride 20 mEq tablet extended release 20 meq PO BID RF: 0 tizanidine 4 mg tablet 4 mg PO TID PRN (Reason: muscle spasticity) Qty: 90 RF: 1 digoxin [Lanoxin] 125 mcg (0.125 mg) tablet 125 mcg PO DAILY Qty: 90 RF: 3 atorvastatin [Lipitor] 40 mg Tablet 40 mg PO DAILY RF: 0 pantothenic acid (vit B5) 500 mg Tablet 500 mg PO DAILY RF: 0 chlorpheniramine maleate [ChlorTabs] 4 mg Tablet 4 mg PO TID RF: 0 carica papaya [Papaya Enzyme] Tablet 4 tab PO PRN RF: 0 riboflavin (vitamin B2) [Vitamin B-2] 100 mg Tablet 100 mg PO DAILY RF: 0 ondansetron HCl [Zofran] 4 mg Tablet 4 mg PO DAILY PRN (Reason: Nausea) RF: 0 loperamide [Anti-Diarrheal (loperamide)] 2 mg Tablet 2 - 4 mg PO PRN PRN (Reason: Diarrhea) RF: 0 cyanocobalamin (vitamin B-12) [Vitamin B-12] 1,000 mcg Tablet 1,000 mcg PO DAILY RF: 0 acetaminophen [Arthritis Pain Reliever] 650 mg Tablet Extended Release 650 mg PO PRN PRN (Reason: Pain) RF: 0 diphenhydramine HCl [Benadryl] 25 mg Capsule 25 mg PO PRN PRN (Reason: ALLERGIES) RF: 0 nitroglycerin [Nitrostat] 0.4 mg Tablet, Sublingual 0.4 mg SUBLINGUAL Q5M PRN (Reason: Chest Pain) RF: 0 docusate sodium [Stool Softener] 100 mg Capsule 100 mg PO BID PRN (Reason: Constipation) RF: 0 zinc 50 mg Tablet 50 mg PO DAILY RF: 0 pyridoxine (vitamin B6) [Vitamin B-6] 100 mg Tablet 100 mg PO DAILY RF: 0 vitamin E 400 unit Capsule 400 unit PO DAILY RF: 0 loratadine 10 mg Tablet 20 mg PO DAILY RF: 0 methylsulfonylmethane [MSM] 1,000 mg Tablet 1,000 mg PO BID RF: 0 magnesium L-lactate [Magtab] 84 mg tablet extended release 84 mg PO BID RF: 0 cholecalciferol (vitamin D3) [Vitamin D3] 25 mcg (1,000 unit) Tablet 1,000 unit PO DAILY RF: 0 omega 7-pug-uid-fish oil [Ultra [place]-3] 500-1,000 mg Capsule 2 cap PO DAILY RF: 0 Liver Aid 2 tab PO DAILY RF: 0 cranberry 2 tab PO QAM RF: 0 black cohosh 40 mg Tablet 40 mg PO BID RF: 0 albuterol sulfate 90 mcg/actuation Hfa Aerosol Inhaler 2 puff INHALATION TID PRN (Reason: Shortness Of Breath) RF: 0 bumetanide 1 mg Tablet 1 mg PO DAILY Qty: 4 RF: 0 cefpodoxime 100 mg tablet 100 mg PO BID Qty: 10 RF: 0 amlodipine 10 mg Tablet 10 mg PO DAILY RF: 0 insulin lispro [Admelog U-100 Insulin lispro] 100 unit/mL Solution See Rx Instructions .ROUTE .COMPLEX RF: 0 Discharge Orders: Discharge Order (Routine); Ordered 07/20/20 Ordered By: Karma Garner Referrals: Ami Perez, [Primary Care Provider] - 1-3 days Discharge Diet: Advance as tolerated Discharge Activity: Resume usual activity Patient Instructions: Contusion in Adults (ED), Fall Prevention (ED) Coding Level of Care Code ED Drier Tender for Dougie Fwd Exam Comprehensive
--- NOTE | 2020-07-20 17:32 | XR_ITS ---
WS: [id number] XR chest 1V portable [id number] REASON FOR EXAM: fall FINDINGS: The chest is unchanged compared to previous examination of 03/20/2020. There may be aneurysmal dilatation of the ascending aorta which has been present for some time. Calcified granulomatous changes in both hemithoraces. No acute pulmonary parenchymal or pleural abnor mality. Mild changes of degenerative spondylosis in the mid and lower thoracic spine. XR/XR chest 1V portable [id number] IMPRESSION: No acute abnormality.
[2020-07-20] MEDS: HYDROcodone-acetaminophen 5-325 mg Tablet 1 TAB PO (18:03)
[2020-07-20 19:06] VITALS: PULSE 69; RESP 18; O2SAT 97
== END 2020-07-20 19:07 | disposition home or self-care (01) ==
PROVIDERS: Emergency Provider Emergency Medicine; PCP Internal Medicine
DX: S09.8XXA Other specified injuries of head, initial encounter (principal); Z79.82 Long term (current) use of aspirin; Z79.4 Long term (current) use of insulin; I11.0 Hypertensive heart disease with heart failure; I50.33 Acute on chronic diastolic (congestive) heart failure; J44.9 Chronic obstructive pulmonary disease, unspecified; E78.5 Hyperlipidemia, unspecified; Z87.891 Personal history of nicotine dependence; W19.XXXA Unspecified fall, initial encounter
CPT/HCPCS: 12345; 70450; 70486; 71045; 72125; 73110; 73562; 73610; 99281; 99283

== ENCOUNTER 2020-08-07 15:35 | Inpatient (IN) | payer MEDICARE, SELFPAY ==
[2020-08-07 15:50] VITALS: BP 122/64; PULSE 73; RESP 21; TEMP 37; O2SAT 98; BMI 39.4
--- NOTE | 2020-08-07 16:09 | XRR_ITS ---
PROCEDURE INFORMATION: Exam: XR Chest, 1 View Exam date and time: 08/07/2020 4:10 PM Age: 69 years old Clinical indication: Chest pain; Additional info: Cp TECHNIQUE: Imaging protocol: XR of the chest Views: 1 view. COMPARISON: CR XR chest 1V portable [id number] 07/20/2020 5:45 PM FINDINGS: Lungs: No visible active interstitial or alveolar airspace disease. Mild senile fibrosis. Evidence of antecedent granulomatous disease. Pleural space: Unremarkable. No pleural effusion. No pneumothorax. Heart/Mediastinum: Cardiomegaly with arteriosclerosis. Bones/joints: Unremarkable for age. Other findings: Heavy body habitus. XR/XR chest 1V portable [id number] IMPRESSION: Nonacute.
--- NOTE | 2020-08-07 16:25 | W.ED.COVID ---
Documented by User: Deb Gilbert 08/07/20 16:55 HPI - COVID General: Chief Complaint: COVID symptoms Stated Complaint: Chest Pain/Body Aches/SOB/recent exposure Time Seen by Provider: 08/07/20 15:45 Source: patient Mode of arrival: ambulatory Limitations: no limitations Triage information: Has fever, cough or shortness of breath. Exposure to COVID + person last 14 days History of Present Illness: HPI Narrative: 69 yo female patient presents to ER with SOB, chest tightness and states her tested positive for COVID yesterday and due to her increaed SOB and hx of COPD she wants to be checked out. Pt states she has had to increase her home 02 from 2 liters to 3 liters. Pt denies fever. pt denies neck pain. pt denies abd pain. Pt has had worsening of symptoms over last 3-4 days COVID 19 common symptoms: positive dyspnea and fatigue; negative fever(s), chills, non-productive cough, productive cough, body aches, headache(s), throat pain, nausea, vomiting or diarrhea COVID 19 other sytmptoms: positive chest pain COVID Results: SARS-CoV-2 Antigen (Rapid) Positive (Negative) H 08/07/20 16:30 08/07/20 Review of Systems Const: Reports: fatigue; Denies: fever(s), chills, body aches, change in appetite, change in weight, malaise, night sweats or diaphoresis Eyes: Denies: change in vision, blurry vision, blind spots or photophobia ENMT: Denies: throat pain, uvular edema, enlarged tonsils, odynophagia or mouth pain Card: Reports: chest pain and dyspnea on exertion; Denies: palpitations, irregular heart rhythm, edema, swelling of feet/ankles, lightheadedness, syncope, pre-syncope, orthopnea, leg pain with exertion or acrocyanosis Resp: Reports: dyspnea, wheezing and pain on inspiration; Denies: productive cough or non-productive cough GI: Denies: abdominal pain, nausea, vomiting, diarrhea or constipation : Denies: flank pain, difficulty voiding, dysuria or urinary frequency Musc: Denies: neck pain, back pain, extremity pain, extremity swelling, joint pain, joint swelling, joint redness or joint warmth Skin/Breast: Denies: rash Neuro: Denies: headache(s), numbness in extremities, weakness in extremities, sensory changes, lack of coordination, difficulty walking, frequent falls, dizziness or vertigo Psych: Denies: suicidal ideation or homicidal ideation [facility] PFSH: Medical History (Updated 08/07/20 @ 19:55 by Tim Robert MD) Acute on chronic diastolic (congestive) heart failure Anxiety and depression Cholecystectomy planned Chronic combined systolic and diastolic CHF (congestive heart failure) COPD (chronic obstructive pulmonary disease) Oxygen dependent, 2 L at baseline Encounter for long-term (current) use of NSAIDs Encounter for long-term opiate analgesic use Fibromyalgia High risk medication use Hyperlipidemia Hypertension Hypothyroidism Immunization counseling Inflammatory arthritis Intermittent atrial fibrillation Intermittent atrial fibrillation Because the patient history of frequent fall she was thought to be high risk for bleeding complications. So she is taking only the aspirin at this time. SHE HAS EASY BRUISING WELL Left renal mass Liver cirrhosis Low back pain of over 3 months duration Morbid obesity She has limited activity tolerance and exertional dyspnea, which affects her ability to exercise and participate in physical activities. Opioid contract exists Osteoarthritis of knees, bilateral Polypharmacy Recurrent UTI Seronegative rheumatoid arthritis of both hands Urgency incontinence Surgical History History of cardiac cath History of hysterectomy History of knee replacement History of thyroid surgery Family History Other CAD (coronary artery disease) Cancer Denies family history of Anesthesia complication Bleeding disorder Social History Smoking and tobacco status: former smoker Quit status (tobacco): has quit using tobacco Year quit tobacco: 2005 Second hand smoke exposure: No Alcohol intake: never Adopted: No Caregiver/support person: No Lives independently: No Household members: spouse Marital status: Current occupational status: retired History of recent travel: No Current gender identity: Female Physical Exam Const: COMMON NORMALS: no acute distress, patient oriented x3, healthy appearing, alert and well nourished GENERAL APPEARANCE: cooperative, comfortable, well kempt and well developed; not ill appearing ORIENTATION/CONSCIOUSNESS: Yes awake, Yes oriented to person, Yes oriented to place and Yes oriented to time HENMT: COMMON NORMALS: normocephalic, atraumatic, hearing grossly normal bilaterally, external ears normal, EAC's normal, TM's normal bilaterally, Normal external nose present, Normal nasal mucous membranes and turbinates present and moist oral mucous membranes HEAD & SCALP: normal to inspection, normocephalic and atraumatic FACE & SINUS: normal facial exam, sinuses nontender and face symmetric NOSE: Normal external nose present, Normal nares present, Normal nasal mucous membranes and turbinates present, No nasal discharge present and Abnormal external nose present EXTERNAL EAR: Yes external ears normal and Yes mastoids normal EXTERNAL AUDITORY CANAL: EAC's normal TYMPANIC MEMBRANE: TM's normal bilaterally MOUTH: Normal oral and palatal mucosa present, lip normal, tongue normal and Normal salivary glands and ducts present THROAT: posterior oropharynx normal, tonsils normal and uvula midline; no uvular edema Eye: COMMON NORMALS: Equal, round and reactive pupils present, EOMs intact bilaterally, conjunctivae normal, no scleral icterus and no papilledema GENERAL EYE: appearance normal, both eyes and all related structures EYELID: eyelids normal CONJUNCTIVA: Yes conjunctivae normal SCLERA: sclerae normal CORNEA: Yes corneas normal PUPIL: Yes Equal, round and reactive pupils present DIRECT OPHTHALMOSCOPY: Yes no papilledema Neck/C-Spine: COMMON NORMALS: full ROM, no lymphadenopathy, supple, no meningeal signs, no JVD and Thyroid normal GENERAL: Yes normal visual inspection and Yes trachea midline THYROID: Thyroid normal CERVICAL SPINE: Yes cervical ROM normal Lymph: LYMPHATIC: no lymphadenopathy noted and no lymphedema noted Chest: COMMONS NORMALS: normal inspection of the chest and normal palpation of entire chest wall Resp: COMMON NORMALS: normal respiratory effort, No retractions, No use of accessory muscles and clear to auscultation bilaterally EFFORT & INSPECTION: Yes able to speak in complete sentences, Yes symmetric chest movement and Yes audible wheezes AUSCULTATION: clear to auscultation bilaterally and diminished lung sounds Cardio: COMMON NORMALS: no JVD, regular rate and regular rhythm RATE: regular rate RHYTHM: regular rhythm GI: COMMON NORMALS: Normal to inspection, nondistended, normoactive bowel sounds present, Soft to palpation, non-tender, No hepatosplenomegaly present, no masses and no bruits INSPECTION: Yes normal to inspection AUSCULTATION: Yes normoactive bowel sounds PALPATION: Yes Soft to palpation and Yes No hepatosplenomegaly present PERCUSSION: normal to percussion RECTAL EXAM: deferred : COMMON NORMALS: Yes no CVA tenderness, Yes normal external appearance, Yes normal appearance of the vagina, Yes normal appearance of the cervix, Yes normal bimanual exam, Yes No adnexal tenderness and Yes no masses BLADDER/KIDNEY EXAM: Yes no CVA tenderness BIMANUAL EXAM - VAGINA & UTERUS: Yes normal bimanual exam Back/Pelvis: COMMON NORMALS: no CVA tenderness, thoracic and lumbar spine normal to inspection, no thoracic nor lumbar tenderness, thoraco-lumbar ROM normal and straight leg raise negative bilaterally THORACIC SPINE/UPPER BACK: Yes normal to inspection LUMBAR SPINE/LOWER BACK: Yes normal to inspection Extremity: COMMON NORMALS: normal to inspection, full ROM and capillary refill normal GENERAL: Yes normal exam except as noted Neuro: COMMON NORMALS: patient oriented x3, CN's II-XII intact bilaterally, moves all extremities, no focal motor deficits, no sensory deficits noted, deep tendon reflexes 2+ bilaterally and gait normal SENSORIUM/ORIENTATION: Yes alert, Yes oriented to person, Yes oriented to place and Yes oriented to time MENINGEAL SIGNS: Yes no meningeal signs CRANIAL NERVES: Yes CN normal except as noted SPEECH: speech normal GAIT: Yes Normal gait present SENSORY EXAM: Yes extremities MOTOR EXAM: 5/5 motor strength present throughout Psych: COMMON NORMALS: mental status grossly normal, Normal thought process present, cooperative, normal affect, speech normal, activity/motor behavior normal, denies hallucinations, denies homicidal ideation and denies suicidal ideation APPEARANCE: Yes grossly normal and Yes well kempt ATTITUDE: Yes calm ACTIVITY/MOTOR BEHAVIOR: Yes appropriate eye contact SPEECH: Yes normal speech THOUGHT PROCESS: Normal thought process present THOUGHT CONTENT: Yes Normal thought content present ATTENTION/CONCENTRATION: Yes attention grossly intact MEMORY/COGNITION: Yes memory grossly intact INSIGHT: Good insight present (Psych) JUDGEMENT: Good judgement present (Psych) Skin: COMMON NORMALS: no rashes or lesions noted, no wounds, turgor normal, no jaundice, no petechiae and no mottling GENERAL SKIN EXAM: no rashes or lesions noted and turgor normal Course ED course: Report to PEGGY Allen at this time he will assume care of patient. Labs and xray are pending Vital Signs: Vital signs: Vital Signs Temperature 98.4 F 08/07/20 20:57 Pulse Rate 74 08/07/20 20:57 Respiratory Rate 20 H 08/07/20 20:57 Blood Pressure 152/76 08/07/20 20:57 Pulse Oximetry 95 08/07/20 20:57 MDM - COVID Lab Data: Labs: Lab Results 08/07/20 08/07/20 08/07/20 Range/Units 16:27 16:27 16:27 WBC 3.1 L (4.0-10.0) 10^3/ uL RBC 2.42 L (4.1-5.3) 10^6/u L Hgb 7.2 L (11.5-15.3) g/dL Hct 24.3 L (37.0-47.0) % MCV 100.4 H (81-99) fL MCH 29.8 (28.0-34.0) pg MCHC 29.6 L (30.0-36.0) g/dL RDW 16.9 H (12.1-15.1) % Plt Count 123 L (130-400) 10^3/c mm MPV 10.0 (7.4-10.4) fL Neut % (Auto) 75.4 % Lymph % (Auto) 12.0 % Mcdonald % (Auto) 10.7 % Eos % (Auto) 1.0 % Baso % (Auto) 0.3 % Neut # (Auto) 2.33 (1.8-7.7) 10^3/u L Lymph # (Auto) 0.4 L (0.8-4.8) 10^3/u L Mcdonald # (Auto) 0.3 (0.2-0.9) 10^3/u L Eos # (Auto) 0.0 (0.0-0.8) 10^3/u L Baso # (Auto) 0.0 (0.0-0.1) 10^3/u L Nucleated RBC % (a uto) 0 % Nucleated RBCs # 0.0 /100WBC D-Dimer 0.72 H (0-0.59) ug/mIFE U Sodium 140 (136-145) mmol/L Potassium 3.9 (3.5-5.1) mmol/L Chloride 99 (98-107) mmol/L Carbon Dioxide 31 H (22-29) mmol/L Anion Gap 13.9 (5-19) BUN 18 (8-23) mg/dL Creatinine 0.9 (0.5-0.9) mg/dL GFR Calculation Not Reportable Glucose 343 H (65-115) mg/dL Calculated Osmolal ity 305 H (285-295) mOsm/k g Calcium 8.8 (8.5-10.5) mg/dL Ferritin 79 (15-150) ng/mL Total Bilirubin 0.2 (0.15-1.2) mg/dL AST 43 H (0-32) U/L ALT 35 H (0-33) U/L Alkaline Phosphata se 128 H (35-105) IU/L Lactate Dehydrogen ase 236 H (135-214) U/L Troponin T Gen 5 n g/L (0-10) ng/L Total Protein 5.2 L (6.6-8.7) g/dL Albumin 3.2 L (3.5-5.2) g/dL Globulin 2.0 (1.3-4.6) g/dL Vitamin B12 (232-1245) pg/mL Procalcitonin (0-0.5) ng/mL Urine Color (Yellow) Urine Appearance (CLEAR) Urine pH (5-7) Ur Specific Gravit y (1.005-1.030) Urine Protein (Negative) Urine Glucose (UA) (Normal) Urine Ketones (Negative) Urine Blood (Negative) Urine Nitrate (Negative) Urine Bilirubin (Negative) Urine Urobilinogen (Negative) mg/dL Ur Leukocyte Dorota ase (Negative) SARS-CoV-2 Ag (Rap id) (Negative) 08/07/20 08/07/20 08/07/20 Range/Units 16:27 16:27 16:30 WBC (4.0-10.0) 10^3/ uL RBC (4.1-5.3) 10^6/u L Hgb (11.5-15.3) g/dL Hct (37.0-47.0) % MCV (81-99) fL MCH (28.0-34.0) pg MCHC (30.0-36.0) g/dL RDW (12.1-15.1) % Plt Count (130-400) 10^3/c mm MPV (7.4-10.4) fL Neut % (Auto) % Lymph % (Auto) % Mcdonald % (Auto) % Eos % (Auto) % Baso % (Auto) % Neut # (Auto) (1.8-7.7) 10^3/u L Lymph # (Auto) (0.8-4.8) 10^3/u L Mcdonald # (Auto) (0.2-0.9) 10^3/u L Eos # (Auto) (0.0-0.8) 10^3/u L Baso # (Auto) (0.0-0.1) 10^3/u L Nucleated RBC % (a uto) % Nucleated RBCs # /100WBC D-Dimer (0-0.59) ug/mIFE U Sodium (136-145) mmol/L Potassium (3.5-5.1) mmol/L Chloride (98-107) mmol/L Carbon Dioxide (22-29) mmol/L Anion Gap (5-19) BUN (8-23) mg/dL Creatinine (0.5-0.9) mg/dL GFR Calculation Glucose (65-115) mg/dL Calculated Osmolal ity (285-295) mOsm/k g Calcium (8.5-10.5) mg/dL Ferritin (15-150) ng/mL Total Bilirubin (0.15-1.2) mg/dL AST (0-32) U/L ALT (0-33) U/L Alkaline Phosphata se (35-105) IU/L Lactate Dehydrogen ase (135-214) U/L Troponin T Gen 5 n g/L 26 H (0-10) ng/L Total Protein (6.6-8.7) g/dL Albumin (3.5-5.2) g/dL Globulin (1.3-4.6) g/dL Vitamin B12 2000 H (232-1245) pg/mL Procalcitonin 0.25 (0-0.5) ng/mL Urine Color (Yellow) Urine Appearance (CLEAR) Urine pH (5-7) Ur Specific Gravit y (1.005-1.030) Urine Protein (Negative) Urine Glucose (UA) (Normal) Urine Ketones (Negative) Urine Blood (Negative) Urine Nitrate (Negative) Urine Bilirubin (Negative) Urine Urobilinogen (Negative) mg/dL Ur Leukocyte Dorota ase (Negative) SARS-CoV-2 Ag (Rap id) Positive H (Negative) 08/07/20 Range/Units 16:58 WBC (4.0-10.0) 10^3/ uL RBC (4.1-5.3) 10^6/u L Hgb (11.5-15.3) g/dL Hct (37.0-47.0) % MCV (81-99) fL MCH (28.0-34.0) pg MCHC (30.0-36.0) g/dL RDW (12.1-15.1) % Plt Count (130-400) 10^3/c mm MPV (7.4-10.4) fL Neut % (Auto) % Lymph % (Auto) % Mcdonald % (Auto) % Eos % (Auto) % Baso % (Auto) % Neut # (Auto) (1.8-7.7) 10^3/u L Lymph # (Auto) (0.8-4.8) 10^3/u L Mcdonald # (Auto) (0.2-0.9) 10^3/u L Eos # (Auto) (0.0-0.8) 10^3/u L Baso # (Auto) (0.0-0.1) 10^3/u L Nucleated RBC % (a uto) % Nucleated RBCs # /100WBC D-Dimer (0-0.59) ug/mIFE U Sodium (136-145) mmol/L Potassium (3.5-5.1) mmol/L Chloride (98-107) mmol/L Carbon Dioxide (22-29) mmol/L Anion Gap (5-19) BUN (8-23) mg/dL Creatinine (0.5-0.9) mg/dL GFR Calculation Glucose (65-115) mg/dL Calculated Osmolal ity (285-295) mOsm/k g Calcium (8.5-10.5) mg/dL Ferritin (15-150) ng/mL Total Bilirubin (0.15-1.2) mg/dL AST (0-32) U/L ALT (0-33) U/L Alkaline Phosphata se (35-105) IU/L Lactate Dehydrogen ase (135-214) U/L Troponin T Gen 5 n g/L (0-10) ng/L Total Protein (6.6-8.7) g/dL Albumin (3.5-5.2) g/dL Globulin (1.3-4.6) g/dL Vitamin B12 (232-1245) pg/mL Procalcitonin (0-0.5) ng/mL Urine Color Yellow (Yellow) Urine Appearance Clear (CLEAR) Urine pH 6 (5-7) Ur Specific Gravit y 1.015 (1.005-1.030) Urine Protein Neg (Negative) Urine Glucose (UA) 4+ H (Normal) Urine Ketones Negative (Negative) Urine Blood Neg (Negative) Urine Nitrate Negative (Negative) Urine Bilirubin Neg (Negative) Urine Urobilinogen Norm (Negative) mg/dL Ur Leukocyte Dorota ase Negative (Negative) SARS-CoV-2 Ag (Rap id) (Negative) COVID Results: SARS-CoV-2 Antigen (Rapid) Positive (Negative) H 08/07/20 16:30 08/07/20 Discharge Plan Discharge Patient Disposition: Admitted As Inpatient Admit Provider: Tim Robert Clinical Impression: COVID-19 Condition: Stable Sign Out Sign Out Data: Patient Sign Out occurred on 08/07/20 at 17:06. Patient's care was discussed, and care was transferred from to PEGGY Allen. Coding Level of Care Code ED Medical Scheduler for Chg Fwd Exam Comprehensive Documented by User: PEGGY Allen 08/07/20 23:27 HPI - COVID General: Chief Complaint: COVID symptoms Stated Complaint: Chest Pain/Body Aches/SOB/recent exposure Time Seen by Provider: 08/07/20 15:45 COVID Results: SARS-CoV-2 Antigen (Rapid) Positive (Negative) H 08/07/20 16:30 08/07/20 PFSH ED PFSH: Medical History (Updated 08/07/20 @ 19:55 by Tim Robert MD) Acute on chronic diastolic (congestive) heart failure Anxiety and depression Cholecystectomy planned Chronic combined systolic and diastolic CHF (congestive heart failure) COPD (chronic obstructive pulmonary disease) Oxygen dependent, 2 L at baseline Encounter for long-term (current) use of NSAIDs Encounter for long-term opiate analgesic use Fibromyalgia High risk medication use Hyperlipidemia Hypertension Hypothyroidism Immunization counseling Inflammatory arthritis Intermittent atrial fibrillation Intermittent atrial fibrillation Because the patient history of frequent fall she was thought to be high risk for bleeding complications. So she is taking only the aspirin at this time. SHE HAS EASY BRUISING WELL Left renal mass Liver cirrhosis Low back pain of over 3 months duration Morbid obesity She has limited activity tolerance and exertional dyspnea, which affects her ability to exercise and participate in physical activities. Opioid contract exists Osteoarthritis of knees, bilateral Polypharmacy Recurrent UTI Seronegative rheumatoid arthritis of both hands Urgency incontinence Surgical History History of cardiac cath History of hysterectomy History of knee replacement History of thyroid surgery Family History Other CAD (coronary artery disease) Cancer Denies family history of Anesthesia complication Bleeding disorder Social History Smoking and tobacco status: former smoker Quit status (tobacco): has quit using tobacco Year quit tobacco: 2005 Second hand smoke exposure: No Alcohol intake: never Adopted: No Caregiver/support person: No Lives independently: No Household members: spouse Marital status: Current occupational status: retired History of recent travel: No Current gender identity: Female Course ED course: I took over patient care from Deb Iyer at 5 PM [facility]. She ordered initial labs and imaging. Labs came back in the patient tested positive for Covid and had a hemoglobin of 7.2. I went in and discussed patient's case with Dr. Garner and told him how patient has COPD and HF and is on 2 L of oxygen at home and she has had 2 up her O2 to 3 L while at home due to increased shortness of breath. Dr. Garner recommended bringing patient in for observation. I went and talked to patient about being admitted on's and patient agreed with plan and would like to be admitted. Vital Signs: Vital signs: Vital Signs Temperature 98.4 F 08/07/20 20:57 Pulse Rate 74 08/07/20 20:57 Respiratory Rate 20 H 08/07/20 20:57 Blood Pressure 152/76 08/07/20 20:57 Pulse Oximetry 95 08/07/20 20:57 MDM - COVID Lab Data: Attestation: I reviewed the patient's lab results. Labs: Lab Results 08/07/20 08/07/20 08/07/20 Range/Units 16:27 16:27 16:27 WBC 3.1 L (4.0-10.0) 10^3/ uL RBC 2.42 L (4.1-5.3) 10^6/u L Hgb 7.2 L (11.5-15.3) g/dL Hct 24.3 L (37.0-47.0) % MCV 100.4 H (81-99) fL MCH 29.8 (28.0-34.0) pg MCHC 29.6 L (30.0-36.0) g/dL RDW 16.9 H (12.1-15.1) % Plt Count 123 L (130-400) 10^3/c mm MPV 10.0 (7.4-10.4) fL Neut % (Auto) 75.4 % Lymph % (Auto) 12.0 % Mcdonald % (Auto) 10.7 % Eos % (Auto) 1.0 % Baso % (Auto) 0.3 % Neut # (Auto) 2.33 (1.8-7.7) 10^3/u L Lymph # (Auto) 0.4 L (0.8-4.8) 10^3/u L Mcdonald # (Auto) 0.3 (0.2-0.9) 10^3/u L Eos # (Auto) 0.0 (0.0-0.8) 10^3/u L Baso # (Auto) 0.0 (0.0-0.1) 10^3/u L Nucleated RBC % (a uto) 0 % Nucleated RBCs # 0.0 /100WBC D-Dimer 0.72 H (0-0.59) ug/mIFE U Sodium 140 (136-145) mmol/L Potassium 3.9 (3.5-5.1) mmol/L Chloride 99 (98-107) mmol/L Carbon Dioxide 31 H (22-29) mmol/L Anion Gap 13.9 (5-19) BUN 18 (8-23) mg/dL Creatinine 0.9 (0.5-0.9) mg/dL GFR Calculation Not Reportable Glucose 343 H (65-115) mg/dL Calculated Osmolal ity 305 H (285-295) mOsm/k g Calcium 8.8 (8.5-10.5) mg/dL Ferritin 79 (15-150) ng/mL Total Bilirubin 0.2 (0.15-1.2) mg/dL AST 43 H (0-32) U/L ALT 35 H (0-33) U/L Alkaline Phosphata se 128 H (35-105) IU/L Lactate Dehydrogen ase 236 H (135-214) U/L Troponin T Gen 5 n g/L (0-10) ng/L Total Protein 5.2 L (6.6-8.7) g/dL Albumin 3.2 L (3.5-5.2) g/dL Globulin 2.0 (1.3-4.6) g/dL Vitamin B12 (232-1245) pg/mL Procalcitonin (0-0.5) ng/mL Urine Color (Yellow) Urine Appearance (CLEAR) Urine pH (5-7) Ur Specific Gravit y (1.005-1.030) Urine Protein (Negative) Urine Glucose (UA) (Normal) Urine Ketones (Negative) Urine Blood (Negative) Urine Nitrate (Negative) Urine Bilirubin (Negative) Urine Urobilinogen (Negative) mg/dL Ur Leukocyte Dorota ase (Negative) SARS-CoV-2 Ag (Rap id) (Negative) 08/07/20 08/07/20 08/07/20 Range/Units 16:27 16:27 16:30 WBC (4.0-10.0) 10^3/ uL RBC (4.1-5.3) 10^6/u L Hgb (11.5-15.3) g/dL Hct (37.0-47.0) % MCV (81-99) fL MCH (28.0-34.0) pg MCHC (30.0-36.0) g/dL RDW (12.1-15.1) % Plt Count (130-400) 10^3/c mm MPV (7.4-10.4) fL Neut % (Auto) % Lymph % (Auto) % Mcdonald % (Auto) % Eos % (Auto) % Baso % (Auto) % Neut # (Auto) (1.8-7.7) 10^3/u L Lymph # (Auto) (0.8-4.8) 10^3/u L Mcdonald # (Auto) (0.2-0.9) 10^3/u L Eos # (Auto) (0.0-0.8) 10^3/u L Baso # (Auto) (0.0-0.1) 10^3/u L Nucleated RBC % (a uto) % Nucleated RBCs # /100WBC D-Dimer (0-0.59) ug/mIFE U Sodium (136-145) mmol/L Potassium (3.5-5.1) mmol/L Chloride (98-107) mmol/L Carbon Dioxide (22-29) mmol/L Anion Gap (5-19) BUN (8-23) mg/dL Creatinine (0.5-0.9) mg/dL GFR Calculation Glucose (65-115) mg/dL Calculated Osmolal ity (285-295) mOsm/k g Calcium (8.5-10.5) mg/dL Ferritin (15-150) ng/mL Total Bilirubin (0.15-1.2) mg/dL AST (0-32) U/L ALT (0-33) U/L Alkaline Phosphata se (35-105) IU/L Lactate Dehydrogen ase (135-214) U/L Troponin T Gen 5 n g/L 26 H (0-10) ng/L Total Protein (6.6-8.7) g/dL Albumin (3.5-5.2) g/dL Globulin (1.3-4.6) g/dL Vitamin B12 2000 H (232-1245) pg/mL Procalcitonin 0.25 (0-0.5) ng/mL Urine Color (Yellow) Urine Appearance (CLEAR) Urine pH (5-7) Ur Specific Gravit y (1.005-1.030) Urine Protein (Negative) Urine Glucose (UA) (Normal) Urine Ketones (Negative) Urine Blood (Negative) Urine Nitrate (Negative) Urine Bilirubin (Negative) Urine Urobilinogen (Negative) mg/dL Ur Leukocyte Dorota ase (Negative) SARS-CoV-2 Ag (Rap id) Positive H (Negative) 08/07/20 Range/Units 16:58 WBC (4.0-10.0) 10^3/ uL RBC (4.1-5.3) 10^6/u L Hgb (11.5-15.3) g/dL Hct (37.0-47.0) % MCV (81-99) fL MCH (28.0-34.0) pg MCHC (30.0-36.0) g/dL RDW (12.1-15.1) % Plt Count (130-400) 10^3/c mm MPV (7.4-10.4) fL Neut % (Auto) % Lymph % (Auto) % Mcdonald % (Auto) % Eos % (Auto) % Baso % (Auto) % Neut # (Auto) (1.8-7.7) 10^3/u L Lymph # (Auto) (0.8-4.8) 10^3/u L Mcdonald # (Auto) (0.2-0.9) 10^3/u L Eos # (Auto) (0.0-0.8) 10^3/u L Baso # (Auto) (0.0-0.1) 10^3/u L Nucleated RBC % (a uto) % Nucleated RBCs # /100WBC D-Dimer (0-0.59) ug/mIFE U Sodium (136-145) mmol/L Potassium (3.5-5.1) mmol/L Chloride (98-107) mmol/L Carbon Dioxide (22-29) mmol/L Anion Gap (5-19) BUN (8-23) mg/dL Creatinine (0.5-0.9) mg/dL GFR Calculation Glucose (65-115) mg/dL Calculated Osmolal ity (285-295) mOsm/k g Calcium (8.5-10.5) mg/dL Ferritin (15-150) ng/mL Total Bilirubin (0.15-1.2) mg/dL AST (0-32) U/L ALT (0-33) U/L Alkaline Phosphata se (35-105) IU/L Lactate Dehydrogen ase (135-214) U/L Troponin T Gen 5 n g/L (0-10) ng/L Total Protein (6.6-8.7) g/dL Albumin (3.5-5.2) g/dL Globulin (1.3-4.6) g/dL Vitamin B12 (232-1245) pg/mL Procalcitonin (0-0.5) ng/mL Urine Color Yellow (Yellow) Urine Appearance Clear (CLEAR) Urine pH 6 (5-7) Ur Specific Gravit y 1.015 (1.005-1.030) Urine Protein Neg (Negative) Urine Glucose (UA) 4+ H (Normal) Urine Ketones Negative (Negative) Urine Blood Neg (Negative) Urine Nitrate Negative (Negative) Urine Bilirubin Neg (Negative) Urine Urobilinogen Norm (Negative) mg/dL Ur Leukocyte Dorota ase Negative (Negative) SARS-CoV-2 Ag (Rap id) (Negative) COVID Results: SARS-CoV-2 Antigen (Rapid) Positive (Negative) H 08/07/20 16:30 08/07/20 Discharge Plan Discharge Patient Disposition: Admitted As Inpatient Admit Provider: Tim Robert Clinical Impression: COVID-19 Condition: Stable Sign Out Sign Out Data: Patient Sign Out occurred on 08/07/20 at 17:06. Patient's care was discussed, and care was transferred from to PEGGY Allen. Coding Level of Care Code ED Medical Scheduler for Chg Fwd Exam Comprehensive Documented by User: Karma Garner MD 08/07/20 19:21 HPI - COVID General: Chief Complaint: COVID symptoms Stated Complaint: Chest Pain/Body Aches/SOB/recent exposure Time Seen by Provider: 08/07/20 15:45 COVID Results: SARS-CoV-2 Antigen (Rapid) Positive (Negative) H 08/07/20 16:30 08/07/20 PFSH ED PFSH: Medical History (Updated 08/07/20 @ 19:55 by Tim Robert MD) Acute on chronic diastolic (congestive) heart failure Anxiety and depression Cholecystectomy planned Chronic combined systolic and diastolic CHF (congestive heart failure) COPD (chronic obstructive pulmonary disease) Oxygen dependent, 2 L at baseline Encounter for long-term (current) use of NSAIDs Encounter for long-term opiate analgesic use Fibromyalgia High risk medication use Hyperlipidemia Hypertension Hypothyroidism Immunization counseling Inflammatory arthritis Intermittent atrial fibrillation Intermittent atrial fibrillation Because the patient history of frequent fall she was thought to be high risk for bleeding complications. So she is taking only the aspirin at this time. SHE HAS EASY BRUISING WELL Left renal mass Liver cirrhosis Low back pain of over 3 months duration Morbid obesity She has limited activity tolerance and exertional dyspnea, which affects her ability to exercise and participate in physical activities. Opioid contract exists Osteoarthritis of knees, bilateral Polypharmacy Recurrent UTI Seronegative rheumatoid arthritis of both hands Urgency incontinence Surgical History History of cardiac cath History of hysterectomy History of knee replacement History of thyroid surgery Family History Other CAD (coronary artery disease) Cancer Denies family history of Anesthesia complication Bleeding disorder Social History Smoking and tobacco status: former smoker Quit status (tobacco): has quit using tobacco Year quit tobacco: 2005 Second hand smoke exposure: No Alcohol intake: never Adopted: No Caregiver/support person: No Lives independently: No Household members: spouse Marital status: Current occupational status: retired History of recent travel: No Current gender identity: Female Course Vital Signs: Vital signs: Vital Signs Temperature 98.4 F 08/07/20 20:57 Pulse Rate 74 08/07/20 20:57 Respiratory Rate 20 H 08/07/20 20:57 Blood Pressure 152/76 08/07/20 20:57 Pulse Oximetry 95 08/07/20 20:57 MDM - COVID MDM Narrative: Medical decision making narrative: Patient presents here with COVID-19 with increasing shortness of breath she had to turn her oxygen from 2 to 3 L have multiple risk factors. Spoke to hospitalist will admit. Lab Data: Labs: Lab Results 08/07/20 08/07/20 08/07/20 Range/Units 16:27 16:27 16:27 WBC 3.1 L (4.0-10.0) 10^3/ uL RBC 2.42 L (4.1-5.3) 10^6/u L Hgb 7.2 L (11.5-15.3) g/dL Hct 24.3 L (37.0-47.0) % MCV 100.4 H (81-99) fL MCH 29.8 (28.0-34.0) pg MCHC 29.6 L (30.0-36.0) g/dL RDW 16.9 H (12.1-15.1) % Plt Count 123 L (130-400) 10^3/c mm MPV 10.0 (7.4-10.4) fL Neut % (Auto) 75.4 % Lymph % (Auto) 12.0 % Mcdonald % (Auto) 10.7 % Eos % (Auto) 1.0 % Baso % (Auto) 0.3 % Neut # (Auto) 2.33 (1.8-7.7) 10^3/u L Lymph # (Auto) 0.4 L (0.8-4.8) 10^3/u L Mcdonald # (Auto) 0.3 (0.2-0.9) 10^3/u L Eos # (Auto) 0.0 (0.0-0.8) 10^3/u L Baso # (Auto) 0.0 (0.0-0.1) 10^3/u L Nucleated RBC % (a uto) 0 % Nucleated RBCs # 0.0 /100WBC D-Dimer 0.72 H (0-0.59) ug/mIFE U Sodium 140 (136-145) mmol/L Potassium 3.9 (3.5-5.1) mmol/L Chloride 99 (98-107) mmol/L Carbon Dioxide 31 H (22-29) mmol/L Anion Gap 13.9 (5-19) BUN 18 (8-23) mg/dL Creatinine 0.9 (0.5-0.9) mg/dL GFR Calculation Not Reportable Glucose 343 H (65-115) mg/dL Calculated Osmolal ity 305 H (285-295) mOsm/k g Calcium 8.8 (8.5-10.5) mg/dL Ferritin 79 (15-150) ng/mL Total Bilirubin 0.2 (0.15-1.2) mg/dL AST 43 H (0-32) U/L ALT 35 H (0-33) U/L Alkaline Phosphata se 128 H (35-105) IU/L Lactate Dehydrogen ase 236 H (135-214) U/L Troponin T Gen 5 n g/L (0-10) ng/L Total Protein 5.2 L (6.6-8.7) g/dL Albumin 3.2 L (3.5-5.2) g/dL Globulin 2.0 (1.3-4.6) g/dL Vitamin B12 (232-1245) pg/mL Procalcitonin (0-0.5) ng/mL Urine Color (Yellow) Urine Appearance (CLEAR) Urine pH (5-7) Ur Specific Gravit y (1.005-1.030) Urine Protein (Negative) Urine Glucose (UA) (Normal) Urine Ketones (Negative) Urine Blood (Negative) Urine Nitrate (Negative) Urine Bilirubin (Negative) Urine Urobilinogen (Negative) mg/dL Ur Leukocyte Dorota ase (Negative) SARS-CoV-2 Ag (Rap id) (Negative) 08/07/20 08/07/20 08/07/20 Range/Units 16:27 16:27 16:30 WBC (4.0-10.0) 10^3/ uL RBC (4.1-5.3) 10^6/u L Hgb (11.5-15.3) g/dL Hct (37.0-47.0) % MCV (81-99) fL MCH (28.0-34.0) pg MCHC (30.0-36.0) g/dL RDW (12.1-15.1) % Plt Count (130-400) 10^3/c mm MPV (7.4-10.4) fL Neut % (Auto) % Lymph % (Auto) % Mcdonald % (Auto) % Eos % (Auto) % Baso % (Auto) % Neut # (Auto) (1.8-7.7) 10^3/u L Lymph # (Auto) (0.8-4.8) 10^3/u L Mcdonald # (Auto) (0.2-0.9) 10^3/u L Eos # (Auto) (0.0-0.8) 10^3/u L Baso # (Auto) (0.0-0.1) 10^3/u L Nucleated RBC % (a uto) % Nucleated RBCs # /100WBC D-Dimer (0-0.59) ug/mIFE U Sodium (136-145) mmol/L Potassium (3.5-5.1) mmol/L Chloride (98-107) mmol/L Carbon Dioxide (22-29) mmol/L Anion Gap (5-19) BUN (8-23) mg/dL Creatinine (0.5-0.9) mg/dL GFR Calculation Glucose (65-115) mg/dL Calculated Osmolal ity (285-295) mOsm/k g Calcium (8.5-10.5) mg/dL Ferritin (15-150) ng/mL Total Bilirubin (0.15-1.2) mg/dL AST (0-32) U/L ALT (0-33) U/L Alkaline Phosphata se (35-105) IU/L Lactate Dehydrogen ase (135-214) U/L Troponin T Gen 5 n g/L 26 H (0-10) ng/L Total Protein (6.6-8.7) g/dL Albumin (3.5-5.2) g/dL Globulin (1.3-4.6) g/dL Vitamin B12 2000 H (232-1245) pg/mL Procalcitonin 0.25 (0-0.5) ng/mL Urine Color (Yellow) Urine Appearance (CLEAR) Urine pH (5-7) Ur Specific Gravit y (1.005-1.030) Urine Protein (Negative) Urine Glucose (UA) (Normal) Urine Ketones (Negative) Urine Blood (Negative) Urine Nitrate (Negative) Urine Bilirubin (Negative) Urine Urobilinogen (Negative) mg/dL Ur Leukocyte Dorota ase (Negative) SARS-CoV-2 Ag (Rap id) Positive H (Negative) 08/07/20 Range/Units 16:58 WBC (4.0-10.0) 10^3/ uL RBC (4.1-5.3) 10^6/u L Hgb (11.5-15.3) g/dL Hct (37.0-47.0) % MCV (81-99) fL MCH (28.0-34.0) pg MCHC (30.0-36.0) g/dL RDW (12.1-15.1) % Plt Count (130-400) 10^3/c mm MPV (7.4-10.4) fL Neut % (Auto) % Lymph % (Auto) % Mcdonald % (Auto) % Eos % (Auto) % Baso % (Auto) % Neut # (Auto) (1.8-7.7) 10^3/u L Lymph # (Auto) (0.8-4.8) 10^3/u L Mcdonald # (Auto) (0.2-0.9) 10^3/u L Eos # (Auto) (0.0-0.8) 10^3/u L Baso # (Auto) (0.0-0.1) 10^3/u L Nucleated RBC % (a uto) % Nucleated RBCs # /100WBC D-Dimer (0-0.59) ug/mIFE U Sodium (136-145) mmol/L Potassium (3.5-5.1) mmol/L Chloride (98-107) mmol/L Carbon Dioxide (22-29) mmol/L Anion Gap (5-19) BUN (8-23) mg/dL Creatinine (0.5-0.9) mg/dL GFR Calculation Glucose (65-115) mg/dL Calculated Osmolal ity (285-295) mOsm/k g Calcium (8.5-10.5) mg/dL Ferritin (15-150) ng/mL Total Bilirubin (0.15-1.2) mg/dL AST (0-32) U/L ALT (0-33) U/L Alkaline Phosphata se (35-105) IU/L Lactate Dehydrogen ase (135-214) U/L Troponin T Gen 5 n g/L (0-10) ng/L Total Protein (6.6-8.7) g/dL Albumin (3.5-5.2) g/dL Globulin (1.3-4.6) g/dL Vitamin B12 (232-1245) pg/mL Procalcitonin (0-0.5) ng/mL Urine Color Yellow (Yellow) Urine Appearance Clear (CLEAR) Urine pH 6 (5-7) Ur Specific Gravit y 1.015 (1.005-1.030) Urine Protein Neg (Negative) Urine Glucose (UA) 4+ H (Normal) Urine Ketones Negative (Negative) Urine Blood Neg (Negative) Urine Nitrate Negative (Negative) Urine Bilirubin Neg (Negative) Urine Urobilinogen Norm (Negative) mg/dL Ur Leukocyte Dorota ase Negative (Negative) SARS-CoV-2 Ag (Rap id) (Negative) COVID Results: SARS-CoV-2 Antigen (Rapid) Positive (Negative) H 08/07/20 16:30 08/07/20 Discharge Plan Discharge Patient Disposition: Admitted As Inpatient Admit Provider: Tim Robert Clinical Impression: COVID-19 Condition: Stable Sign Out Sign Out Data: Patient Sign Out occurred on 08/07/20 at 17:06. Patient's care was discussed, and care was transferred from to PEGGY Allen. Coding Level of Care Code ED Medical Scheduler for Dougie Fwd Exam Comprehensive
[2020-08-07 16:55] LABS: Basophils % 0.3 %; Hematocrit 24.3 % (37.0-47.0); Hemoglobin 7.2 g/dL (11.5-15.3); Lymphocytes # 0.4 10^3/uL (0.8-4.8); Mean Corpuscular HGB Conc 29.6 g/dL (30.0-36.0); Mean Corpuscular Hemoglobin 29.8 pg (28.0-34.0); Mean Corpuscular Volume 100.4 fL (81-99); Monocytes # 0.3 10^3/uL (0.2-0.9); Monocytes % 10.7 %; Neutrophils # 2.33 10^3/uL (1.8-7.7); Neutrophils % 75.4 %; Nucleated Red Blood Cells % 0 %; Platelet Count 123 10^3/cmm (130-400); Red Blood Count 2.42 10^6/uL (4.1-5.3); Red Cell Distribution Width 16.9 % (12.1-15.1); White Blood Count 3.1 10^3/uL (4.0-10.0)
[2020-08-07 16:56] LABS: D Dimer 0.72 ug/mIFEU (0-0.59)
[2020-08-07 17:00] LABS: Alanine Aminotransferase 35 U/L (0-33); Albumin Level 3.2 g/dL (3.5-5.2); Alkaline Phosphatase 128 IU/L (35-105); Anion Gap 13.9 (5-19); Aspartate Amino Transferase 43 U/L (0-32); Blood Urea Nitrogen 18 mg/dL (8-23); Calcium 8.8 mg/dL (8.5-10.5); Carbon Dioxide 31 mmol/L (22-29); Chloride 99 mmol/L (98-107); Ferritin 79 ng/mL (15-150); Glucose 343 mg/dL (65-115); Lactate Dehydrogenase 236 U/L (135-214); Osmolality Calculated 305 mOsm/kg (285-295); Potassium 3.9 mmol/L (3.5-5.1); Sodium 140 mmol/L (136-145); Total Bilirubin 0.2 mg/dL (0.15-1.2); Total Protein 5.2 g/dL (6.6-8.7)
[2020-08-07 17:01] LABS: Troponin T (5th) Once 26 ng/L (0-10)
[2020-08-07] MEDS: albuterol 8 gm MDI 2 PUFF INHALATION (17:09)
[2020-08-07 17:10] VITALS: O2SAT 98
[2020-08-07 17:13] LABS: Add Urine Microscopic? NO
[2020-08-07 17:16] VITALS: PULSE 73; RESP 18; O2SAT 98
[2020-08-07 17:18] VITALS: PULSE 75
[2020-08-07 17:20] LABS: Bilirubin Urine Neg (Negative); Blood Urine Neg (Negative); Glucose Urine UA 4+ (Normal); Ketones Urine Negative (Negative); Leukocyte Esterase Urine Negative (Negative); Nitrate Urine Negative (Negative); Protein Urine Neg (Negative); Specific Gravity, Urine 1.015 (1.005-1.030); Urine Appearance Clear (CLEAR); Urine Color Yellow (Yellow); Urobilinogen Urine Norm (Negative); pH Urine 6 (5-7)
--- NOTE | 2020-08-07 17:30 | ECG_ITS ---
[facility] Test Date: 2020-08-07 Pat Name: Myesha Parker Department: Room: Gender: Female Tube Skiver: : 1950 Requested By: Dennis Fish Order Number: [id number] Wilbur MD: FIONA EMMANUEL Measurements Intervals Kila Rate: 71 P: -43 IA: 198 QRS: -56 QRSD: 153 T: 28 QT: 450 QTc: 490 Interpretive Statements SINUS RHYTHM RIGHT BUNDLE BRANCH BLOCK [120+ ms QRS DURATION, UPRIGHT V1, 40+ ms S IN I/aVL/V4/V5/V6] LEFT ANTERIOR FASCICULAR BLOCK [QRS AXIS <= -45, QR IN I, RS IN II] VOLTAGE CRITERIA FOR LVH [MEETS CRITERIA IN ONE OF: R(aVL), S(V1), R(V5), R(V5/V6)+S(V1)] Compared to ECG 03/22/2020 23:43:55 First degree AV block no longer present ST (T wave) deviation no longer present Electronically Signed On 08-07-2020 18:52:34 TEST TECH by FIONA EMMANUEL [email or web address]
[2020-08-07 17:51] LABS: SARS Covid-2 Antigen Positive (Negative)
--- NOTE | 2020-08-07 19:14 | PM.HP ---
Providers/Chief Complaint Primary Care Provider: Ami Perez DO Chief Complaint: Chest Pain/Body Aches/SOB/recent exposure History of Present Illness Myesha Parker is a 69 year old female who has extensive list of comorbidities, polypharmacy, diastolic congestive heart failure, previous history of atrial fibrillation not on anticoagulation due to risk of fall, rheumatoid arthritis, macrocytic anemia presented today with chief complaint of worsening shortness of breath. Patient is stating that her symptoms started 2 days ago which she describes as worsening shortness of breath, of note, her was tested positive with COVID-19 on Sunday and he urged her to go to the hospital because now she was experiencing low-grade fever 99.1, productive cough(white sputum) and her oxygen requirement increased to 3 L from 2 L. Patient is endorsing constipation, she is denying headache, pleuritic chest pain, she is compliant with her medications, she is on multiple vitamins and black cohosh. Diagnosis in the ER revealed pancytopenia, D-dimer 0.7, she is saturating well on 2 L nasal cannula no active respiratory distress, patient stated that she experienced audible wheezing but at the time my evaluation she does not have such finding in the ER she has been given albuterol 2 puffs along methylprednisolone 125 IV push. Hospital service is requested to admit the patient because of her multiple comorbid conditions such as rheumatoid arthritis CHF and COPD Review of Systems Const: Reports: chills, body aches and fatigue; Denies: fever(s) Eyes: Denies: change in vision ENMT: Denies: throat pain Card: Reports: chest pain and dyspnea on exertion; Denies: swelling of feet/ankles or orthopnea Resp: Reports: dyspnea, productive cough and pain on inspiration GI: Reports: abdominal pain and constipation : Denies: flank pain Musc: Denies: extremity swelling Skin/Breast: Denies: rash Neuro: Denies: headache(s) Psych: Reports: anxiety, depression and mood swings Endo: Denies: polyuria [place]/Lymph: Denies: easy bruising All/Imm: Denies: urticaria Medications/Allergies Home Medications Medication Instructions Recorded Confirmed Last Taken Type aspirin 325 mg tablet 325 mg PO DAILY@23 tab 09/09/19 08/07/20 08/06/20 History levothyroxine 175 mcg capsule 175 mcg PO DAILY@08 cap 09/09/19 08/07/20 08/07/20 History potassium chloride 20 mEq 20 meq PO BID@09/09/19 08/07/20 08/07/20 History tablet,extended release ferrous gluconate 324 mg (37.5 mg 324 mg PO DAILY@10/02/19 08/07/20 08/06/20 History iron) tablet garlic 1,000 mg capsule 1,000 mg PO DAILY@10/02/19 08/07/20 08/07/20 History Liver Aid 2 tab PO DAILY@10/12/19 08/07/20 08/07/20 History acetaminophen [Arthritis Pain 650 mg PO PRN 10/12/19 08/07/20 Unknown History Reliever] atorvastatin [Lipitor] 40 mg PO DAILY@10/12/19 08/07/20 08/06/20 History black cohosh 40 mg PO BID 10/12/19 08/07/20 03/20/20 History carica papaya [Papaya Enzyme] 4 tab PO PRN 10/12/19 08/07/20 03/20/20 09:00 History chlorpheniramine maleate 4 mg PO TID@ PRN 10/12/19 08/07/20 08/07/20 History [ChlorTabs] cholecalciferol (vitamin D3) 1,000 unit PO DAILY@10/12/19 08/07/20 08/07/20 History [Vitamin D3] cranberry 1 tab PO DAILY@10/12/19 08/07/20 08/07/20 History cyanocobalamin (vitamin B-12) 1,000 mcg PO DAILY@10/12/19 08/07/20 08/07/20 History [Vitamin B-12] diphenhydramine HCl [Benadryl] 25 mg PO PRN PRN 10/12/19 08/07/20 03/20/20 History docusate sodium [Stool Softener] 200 mg PO BID@ PRN 10/12/19 08/07/20 08/07/20 History loperamide [Anti-Diarrheal 2 - 4 mg PO PRN PRN 10/12/19 08/07/20 03/20/20 History (loperamide)] loratadine 20 mg PO DAILY@10/12/19 08/07/20 08/07/20 History magnesium L-lactate [Magtab] 84 mg PO BID@10/12/19 08/07/20 08/06/20 History methylsulfonylmethane [MSM] 1,000 mg PO BID@10/12/19 08/07/20 08/07/20 History nitroglycerin [Nitrostat] 0.4 mg SUBLINGUAL Q5M PRN 10/12/19 08/07/20 Unknown History omega 5-ijk-xdi-fish oil [Ultra 2 cap PO DAILY@10/12/19 08/07/20 08/06/20 History [place]-3] ondansetron HCl [Zofran] 4 mg PO DAILY PRN 10/12/19 08/07/20 Unknown History pantothenic acid (vit B5) 500 mg PO DAILY@10/12/19 08/07/20 08/07/20 History pyridoxine (vitamin B6) [Vitamin 100 mg PO DAILY@10/12/19 08/07/20 08/07/20 History B-6] riboflavin (vitamin B2) [Vitamin 100 mg PO DAILY@10/12/19 08/07/20 08/07/20 History B-2] vitamin E 400 unit PO DAILY@10/12/19 08/07/20 08/07/20 History zinc 50 mg PO DAILY@10/12/19 08/07/20 08/06/20 History amlodipine 10 mg PO DAILY@12/31/19 08/07/20 08/07/20 History insulin lispro [Admelog U-100 See Rx Instructions .ROUTE .COMPLEX 12/31/19 08/07/20 03/20/20 History Insulin lispro] tizanidine 4 mg tablet 4 mg PO TID PRN #90 tab 02/13/20 08/07/20 Unknown Rx albuterol sulfate 2 puff INHALATION TID PRN 03/21/20 08/07/20 Unknown History furosemide 20 mg tablet 20 mg PO DAILY@08 04/13/20 08/07/20 08/07/20 History folic acid 800 mcg tablet 0.8 mg PO DAILY@05/05/20 08/07/20 08/06/20 History prednisone 2.5 mg tablet See Rx Instructions PO DAILY #45 05/05/20 08/07/20 08/07/20 Rx tab 2.5MG insulin human U-100 NPH-regulr See Rx Instructions .ROUTE 07/14/20 08/07/20 08/06/20 History 70-30 mix 100 unit/mL subcutaneous .COMPLEX ml susp Cymbalta 30 mg PO DAILY@08/07/20 08/07/20 08/07/20 History Cymbalta 60 mg PO DAILY@08/07/20 08/07/20 08/07/20 History Lanoxin 125 mcg PO DAILY@08/07/20 08/07/20 08/07/20 History Protonix 40 mg PO DAILY@08/07/20 08/07/20 08/07/20 History aripiprazole [Abilify] 5 mg PO DAILY@08/07/20 08/07/20 08/07/20 09:00 History buspirone 10 mg PO BID@,08/07/20 08/07/20 08/07/20 08:00 History hydralazine 50 mg PO TID@08,,08/07/20 08/07/20 08/07/20 08:00 History hydrocodone-acetaminophen 1 tab PO TID@,,08/07/20 08/07/20 08/07/20 08:00 History methotrexate sodium 10 mg PO Q7D 08/07/20 08/07/20 08/07/20 History metoprolol tartrate 100 mg PO Q12H 08/07/20 08/07/20 08/07/20 History sulfasalazine 0.5 gm PO BID@,08/07/20 08/07/20 08/07/20 History tramadol 100 mg PO TID@,, PRN 08/07/20 08/07/20 08/07/20 History Allergies Allergy/AdvReac Type Severity Reaction Status Date / Time adhesive tape Allergy rash Verified 07/14/20 11:50 cinnamon Allergy sinus Verified 07/14/20 11:50 codeine Allergy unknown Verified 07/14/20 11:50 cedar Allergy sinus Uncoded 07/14/20 11:50 pine Allergy sinus Uncoded 07/14/20 11:50 pork food Allergy ADR-Nausea Uncoded 07/14/20 11:50 PFSH Acute PFSH: Medical History Acute on chronic diastolic (congestive) heart failure Anxiety and depression Cholecystectomy planned Chronic combined systolic and diastolic CHF (congestive heart failure) COPD (chronic obstructive pulmonary disease) Oxygen dependent, 2 L at baseline Encounter for long-term opiate analgesic use Fibromyalgia High risk medication use Hyperlipidemia Hypertension Hypothyroidism Immunization counseling Inflammatory arthritis Intermittent atrial fibrillation Intermittent atrial fibrillation Because the patient history of frequent fall she was thought to be high risk for bleeding complications. So she is taking only the aspirin at this time. SHE HAS EASY BRUISING WELL Left renal mass Liver cirrhosis Low back pain of over 3 months duration Morbid obesity She has limited activity tolerance and exertional dyspnea, which affects her ability to exercise and participate in physical activities. Opioid contract exists Osteoarthritis of knees, bilateral Polypharmacy Recurrent UTI Seronegative rheumatoid arthritis of both hands Urgency incontinence Surgical History History of cardiac cath History of hysterectomy History of knee replacement History of thyroid surgery Family History Other CAD (coronary artery disease) Cancer Denies family history of Anesthesia complication Bleeding disorder Social History Smoking and tobacco status: former smoker Quit status (tobacco): has quit using tobacco Year quit tobacco: 2005 Second hand smoke exposure: No Alcohol intake: never Adopted: No Caregiver/support person: No Lives independently: No Household members: spouse Marital status: Current occupational status: retired History of recent travel: No Current gender identity: Female Vitals/I&O/Wt Last Vital Signs Temp 98.6 F 08/07/20 15:50 Pulse 75 08/07/20 17:18 Resp 18 08/07/20 17:16 BP 122/64 08/07/20 15:50 Pulse Ox 98 08/07/20 17:16 Weight last 48 hrs Weight 104.326 kg Physical Exam Narrative: EXAM NARRATIVE: This is a very pleasant elderly female, morbidly obese When I entered the room she was not in any distress, does not look fluid overloaded, was doing well on 3 to nasal cannula, no complaint of active chest pain Patient asked for meal S1, S2 sinus rhythm no murmur appreciated no signs of heart failure Abdomen soft, distended, visceral obesity, mild tenderness in left hypogastric region, bowel sounds present, Awake alert oriented x3 GCS 15 no neurological deficit Appropriate mood and affect Lower extremity no edema gangrene or ulcer Bilateral breath sounds without adventitious rhonchi or crackles I did not appreciate any wheezing Of note, she is wearing nail greek as well Data : 08/07/20 16:27 08/07/20 16:27 A&P Assessment and plan (1) COVID-19: Status: Acute (2) Acute and chronic respiratory failure with hypoxia: Status: Acute (3) Polypharmacy: Status: Chronic (4) Major depressive disorder, recurrent, in partial remission: Status: Chronic (5) COPD (chronic obstructive pulmonary disease): Status: Chronic Qualifiers: COPD type: unspecified COPD Qualified Code(s): J44.9 - Chronic obstructive pulmonary disease, unspecified Additional A&P Information Acute on chronic hypoxic respiratory failure secondary to COVID-19 pneumonia Covid antigen positive, currently requiring 2 L nasal cannula oxygen supplementation without acute respiratory distress or chest pain No tachycardia noted, dimer 0.7 Ventolin, Decadron 6 mg 10-day regimen I would not initiate remdesivir at this point COPD without acute exacerbation Procalcitonin requested, No signs of sepsis or dense consolidation on x-ray Polypharmacy and major depressive disorder Considering sleep apnea and multiple comorbid conditions I would hold most of her multivitamins and antipsychotics Pancytopenia I do believe this is secondary to use of methotrexate and sulfasalazine, she has macrocytic anemia, will check B12 level continue folic acid and iron supplementation no active bleeding noted patient is denying hematemesis, hemoptysis, hematuria, melanotic stools Her shortness of breath worsening could be due to worsening anemia, I would give her 1 unit PRBC if next H&H is less than 7 Diastolic congestive heart failure without acute exacerbation continue same regimen of Lasix 20 mg daily Full code Consistent carb diet DVT prophylaxis not indicated due to pancytopenia and anemia would use SCDs for now Attestations Medical Necessity Statement*: I am anticipating she will be discharged in less than 48 hours overnight monitoring to see if she would require more oxygen overnight currently doing well on 3 L nasal cannula, starting Decadron Time Spent in Patient Care: (>than 50% of time spent in counselling and/or direct pt care on unit). 40mins Coding Level of Care Code Acute Greens Or Grounds Superintendent for Chg Fwd Diagnoses COVID-19 U07.1 Acute and chronic respiratory failure with hypoxia J96.21 Polypharmacy Z79.899 Major depressive disorder, recurrent, in partial remission F33.41 COPD (chronic obstructive pulmonary disease) J44.9 COPD type: unspecified COPD
[2020-08-07 20:15] VITALS: BP 156/92; PULSE 84; RESP 24; O2SAT 97
[2020-08-07 20:57] VITALS: BP 152/76; PULSE 74; RESP 20; TEMP 36.9; O2SAT 95
[2020-08-07 21:33] LABS: Procalcitonin 0.25 ng/mL (0-0.5)
[2020-08-07 22:04] LABS: Glucose Point of Care 383 mg/dL (70-110)
[2020-08-07 22:20] LABS: Troponin T (5th) Once 22 ng/L (0-10)
[2020-08-07] MEDS: metoprolol tartrate 50 mg Tablet 100 MG PO (22:24)
[2020-08-07 22:34] LABS: Vitamin B12 2000 pg/mL (232-1245)
[2020-08-07] MEDS: hyDRALAzine 50 mg Tablet PO (22:58)
[2020-08-07] MEDS: aspirin 325 mg Tablet PO (22:58)
[2020-08-07] MEDS: HYDROcodone-acetaminophen 5-325 mg Tablet 1 TAB PO (22:58)
[2020-08-08] VITALS (9 sets, daily range): BP systolic 126–169; BP diastolic 63–99; PULSE 68–83; RESP 16–21; TEMP 36.7–37.4; O2SAT 94–98
[2020-08-08 04:59] LABS: Hematocrit 23.6 % (37.0-47.0); Hemoglobin 7.1 g/dL (11.5-15.3); Lymphocytes # 0.2 10^3/uL (0.8-4.8); Lymphocytes % 9.2 %; Mean Corpuscular HGB Conc 30.1 g/dL (30.0-36.0); Mean Corpuscular Hemoglobin 29.6 pg (28.0-34.0); Mean Corpuscular Volume 98.3 fL (81-99); Mean Platelet Volume 9.3 fL (7.4-10.4); Monocytes # 0.2 10^3/uL (0.2-0.9); Monocytes % 8.4 %; Neutrophils # 2.04 10^3/uL (1.8-7.7); Nucleated Red Blood Cells % 0 %; Platelet Count 124 10^3/cmm (130-400); Red Cell Distribution Width 16.5 % (12.1-15.1); White Blood Count 2.5 10^3/uL (4.0-10.0)
[2020-08-08 05:28] LABS: Alanine Aminotransferase 32 U/L (0-33); Albumin Level 3.2 g/dL (3.5-5.2); Alkaline Phosphatase 117 IU/L (35-105); Aspartate Amino Transferase 35 U/L (0-32); Blood Urea Nitrogen 19 mg/dL (8-23); C Reactive Protein 22.4 mg/L (0.0-4.9); Calcium 9.3 mg/dL (8.5-10.5); Carbon Dioxide 30 mmol/L (22-29); Chloride 99 mmol/L (98-107); Globulin 2.5 g/dL (1.3-4.6); Glucose 268 mg/dL (65-115); Osmolality Calculated 300 mOsm/kg (285-295); Sodium 139 mmol/L (136-145); Total Bilirubin 0.2 mg/dL (0.15-1.2); Total Protein 5.7 g/dL (6.6-8.7)
[2020-08-08 05:29] LABS: Lactate Dehydrogenase 225 U/L (135-214)
[2020-08-08 07:02] LABS: Glucose Point of Care 260 mg/dL (70-110)
[2020-08-08] MEDS: cyanocobalamin 1,000 mcg Tablet 500 MCG PO (09:02)
[2020-08-08] MEDS: HYDROcodone-acetaminophen 5-325 mg Tablet 1 TAB PO ×2 (09:02→17:31)
[2020-08-08] MEDS: FUROsemide 20 mg Tablet PO (09:02)
[2020-08-08] MEDS: amlodipine 10 mg Tablet PO (09:02)
[2020-08-08] MEDS: pantoprazole DR 40 mg Tablet PO ×2 (09:02→17:31)
[2020-08-08] MEDS: duloxetine 30 mg Capsule PO (09:03)
[2020-08-08] MEDS: dexamethasone 4 mg Tablet 6 MG PO (09:03)
[2020-08-08] MEDS: folic acid 1 mg Tablet PO (09:03)
[2020-08-08] MEDS: hyDRALAzine 50 mg Tablet PO ×2 (09:04→17:31)
[2020-08-08] MEDS: levothyroxine 125 mcg Tablet PO (09:04)
[2020-08-08] MEDS: levothyroxine 50 mcg Tablet PO (09:04)
[2020-08-08] MEDS: metoprolol tartrate 50 mg Tablet 100 MG PO ×2 (10:21→21:16)
[2020-08-08] MEDS: BuSPIRONE 10 mg Tablet PO ×2 (10:21→17:31)
[2020-08-08 10:54] LABS: Glucose Point of Care 228 mg/dL (70-110)
--- NOTE | 2020-08-08 12:00 | PM.PN ---
Subjective Subjective: Interval history: Admitted overnight. H&P and labs noted. On examination patient lying in bed, complaining of weakness on 2 L maintaining 92%. Denies any nausea, vomiting, headache. Complaining of decreased appetite. Medications: Reviewed: Yes Vitals/I&O/Wt Last Vital Signs Temp 98.0 F 08/08/20 08:00 Pulse 69 08/08/20 08:00 Resp 16 08/08/20 08:00 BP 131/68 08/08/20 08:00 Pulse Ox 97 08/08/20 08:00 08/07/20 08/08/20 08/08/20 22:59 06:59 14:59 Intake Total 360 / 360 Output Total 200 / 200 500 / 700 350 / 350 Balance -200 / -200 -500 / -700 10 / 10 Weight last 48 hrs Weight 104.326 kg Physical Exam Narrative: EXAM NARRATIVE: General: No acute distress, AO x3 on 2 L nasal cannula HEENT: PERRLA, pupils bilaterally equal and reactive Chest: Normal vesicular breath sounds, diffuse rhonchi all over the lung hatch, fine crackles at bases, equal good air entry bilaterally CVS: S1-S2 regular, no murmurs, no tachycardia, no gallops, no rubs Abdomen: Soft, nontender, no organomegaly, bowel sounds present Neuro: No focal deficits, no facial deformity, AO x3, power 5/5 in all limbs Data : 08/08/20 04:30 08/08/20 04:30 A&P Assessment and plan (1) COVID-19: Status: Acute (2) Acute and chronic respiratory failure with hypoxia: Status: Acute (3) COPD (chronic obstructive pulmonary disease): Status: Chronic Qualifiers: COPD type: unspecified COPD Qualified Code(s): J44.9 - Chronic obstructive pulmonary disease, unspecified (4) Heart failure with preserved ejection fraction: Status: Acute (5) Hypertension: Status: Acute Qualifiers: Hypertension type: essential hypertension Qualified Code(s): I10 - Essential (primary) hypertension (6) Hypothyroidism: Status: Acute Qualifiers: Hypothyroidism type: acquired Qualified Code(s): E03.9 - Hypothyroidism, unspecified (7) Intermittent atrial fibrillation: Status: Acute (8) Major depressive disorder, recurrent, in partial remission: Status: Chronic (9) Polypharmacy: Status: Chronic Additional A&P Information Acute on chronic hypoxic respiratory failure secondary to COVID-19 pneumonia: Moderate disease. Covid antigen positive, currently requiring 2 L nasal cannula oxygen supplementation without acute respiratory distress or chest pain Start patient on antiviral treatment with remdesivir. Vitamin C, zinc. Convert dexamethasone to IV 6 mg daily. Barbie Benson. Advair, Spiriva. D-dimer elevated. Will get CTA chest to rule out PE. For now hold off on blood thinner as patient's hemoglobin is on the lower side. Continue with home dose of full dose aspirin for now. Low chances of superadded bacterial infection for now. Check procalcitonin, sputum culture, MRSA swab. For now hold off on antibiotics other than azithromycin for a course of 3 days. Oxygen supplementation keeping saturation over 90%. Continue to follow-up inflammatory markers including D-dimer, CRP, fibrinogen, LDH. Patient is CPAP at home which she is noncompliant with and has not used for last 3 months as he states Dr. Is not functioning. For now will continue to monitor if required can do CPAP overnight. If patient is requiring CPAP we will have to move her to negative pressure room because that will be aerosolizing. COPD: No signs of exacerbation. Steroid and inhaler as above. Congestive heart failure with preserved ejection fraction: Last echocardiogram done in November shows an EF of 70% with grade 1 diastolic dysfunction with mild aortic stenosis. Lexiscan done in December negative for any signs of angina. Continue with home dose of Lasix. Hypertension: Goal blood pressure less than 140/90 allergy. Blood pressure at goal for now. Continue with home dose of metoprolol, amlodipine, hydralazine for now. History of narrow complex tachycardia: EKG reviewed. Consistent with RBBB, normal sinus rhythm with LAFB. Continue home dose of metoprolol and digoxin. Check digoxin levels. Type II diabetes mellitus: Continue with insulin sliding scale at moderate dose. We will continue to monitor blood sugars patient is on steroids now. Pancytopenia: Most likely secondary to COVID-19 pneumonia along with immunosuppressants like methotrexate at home. Check vitamin B12, folate levels. For now hold off on methotrexate. Continue other chronic medications. Polypharmacy and major depressive disorder Considering sleep apnea and multiple comorbid conditions I would hold most of her multivitamins and antipsychotics Full code Consistent carb diet DVT prophylaxis not indicated due to pancytopenia and anemia would use SCDs for now Attestations Medical Necessity Statement*: Patient requires admission for acute on chronic hypoxic respiratory failure because of COVID-19 pneumonia, COPD exacerbation, CHF and possible baseline sleep apnea. Time Spent in Patient Care: Greater than 35 minutes (>than 50% of time spent in counselling and/or direct pt care on unit). Coding Level of Care Code Acute Metal Turner for [facility] Diagnoses COVID-19 U07.1 Acute and chronic respiratory failure with hypoxia J96.21 COPD (chronic obstructive pulmonary disease) J44.9 COPD type: unspecified COPD Heart failure with preserved ejection fraction I50.30 Hypertension I10 Hypertension type: essential hypertension Hypothyroidism E03.9 Hypothyroidism type: acquired Intermittent atrial fibrillation I48.0 Major depressive disorder, recurrent, in partial remission F33.41 Polypharmacy Z79.897
[2020-08-08] MEDS: zinc gluconate 50 mg Tablet PO (12:18)
[2020-08-08] MEDS: ferrous gluconate 324 mg Tablet PO (12:18)
--- NOTE | 2020-08-08 12:20 | CTR_ITS ---
PROCEDURE INFORMATION: Exam: CT Angiography Chest With Contrast Exam date and time: 08/08/2020 1:58 PM Age: 69 years old Clinical indication: Abnormal findings; Abnormal diagnostic tests; Elevated d-dimer; Patient HX: Covid+ w elev d-dimer; Additional info: Covid positive, high d dimer TECHNIQUE: Imaging protocol: Computed tomographic angiography of the chest with intravenous contrast. 3D rendering (Not supervised by radiologist): MIP and/or 3D reconstructed images were created by the technologist. Radiation optimization: All CT scans at this facility use at least one of these dose optimization techniques: automated exposure control; mA and/or kV adjustment per patient size (includes targeted exams where dose is matched to clinical indication); or iterative reconstruction. Contrast material: OMNI 350; Contrast volume: 80 ml; Contrast route: INTRAVENOUS (IV); COMPARISON: CT angio chest PE protcl [id number] 03/20/2020 10:52 PM RADIATION DOSE METRICS: Total DLP (mGy-cm): 565.53 FINDINGS: Pulmonary arteries: No pulmonary embolus or aortic dissection. Aorta: Unremarkable. No aortic aneurysm. No aortic dissection. Great vessels off aortic arch: Calcification of the thoracic aorta and/or great vessels consistent with atherosclerotic vessel disease. Lungs: Interval appearance of mild scattered geographic ground-glass opacities which are in the right lung periphery except for 1 in the left lung base most consistent with mild bilateral Covid-19 pneumonia. Pleural space: Unremarkable. No pneumothorax. No pleural effusion. Heart: Mild calcified coronary artery disease. Lymph nodes: Calcified bilateral hilar nodes and/or mediastinal nodes and/or lung granulomas consistent with old granulomatous disease. Liver: Calcified hepatic granulomas. Gallbladder and bile ducts: Stable cholecystectomy. Bones/joints: Moderate thoracic spondylosis. Soft tissues: Unremarkable. CT/CT angio chest PE protcl [id number] IMPRESSION: 1. Interval appearance of mild scattered geographic ground-glass opacities which are in the right lung periphery except for 1 in the left lung base most consistent with mild bilateral Covid-19 pneumonia. 2. Mild calcified coronary artery disease. 3. No pulmonary embolus or aortic dissection. Radiation Dose CTDIVOL = (mGy): DLP = 565.53 (mGy-cm)
[2020-08-08 12:32] LABS: Procalcitonin 0.21 ng/mL (0-0.5)
[2020-08-08 12:43] LABS: Iron 26 ug/dL (37-145); Percent Saturation 12.8 % (20-50); Total Iron Binding Capacity 202 mcg/dl; Unsaturated Iron Binding 176 ug/dL (112-347)
[2020-08-08] MEDS: albuterol 8 gm MDI 2 PUFF INHALATION ×2 (13:30→19:49)
--- NOTE | 2020-08-08 13:53 | PC.RESP ---
Pt report adverse reactions with advair, refusing to use.
[2020-08-08 14:28] LABS: Fibrinogen 537 mg/dL (174-498)
--- NOTE | 2020-08-08 14:30 | PC.NURSE ---
Return to the room with patient at this time.
[2020-08-08] MEDS: iohexol 350 mg/mL 100 mL Btl IV (14:36)
[2020-08-08 14:44] LABS: Digoxin 0.8 ng/mL (0.6-1.2)
[2020-08-08 14:47] LABS: C Reactive Protein 19.9 mg/L (0.0-4.9); Creatine Phosphokinase 37 U/L (26-192); Ferritin 97 ng/mL (15-150); Lactate Dehydrogenase 230 U/L (135-214); Magnesium 1.4 mg/dL (1.7-2.3); Thyroid Stimulating Hormone 0.33 uIU/mL (0.27-4.20)
[2020-08-08] MEDS: benzonatate 100 mg Capsule PO ×2 (16:12→20:23)
[2020-08-08] MEDS: remdesivir 200 MG in sodium chloride 0.9% (100 ml) 100 ML 100 MG IV (16:13)
[2020-08-08 17:18] LABS: Glucose Point of Care 398 mg/dL (70-110)
[2020-08-08] MEDS: sulfaSALAzine 500 mg Tablet PO (17:30)
[2020-08-08] MEDS: ascorbic acid 500 mg Tablet 1000 MG PO (17:31)
--- NOTE | 2020-08-08 19:07 | PC.NURSE ---
Report to Naina CR at this time.
[2020-08-08 20:29] LABS: Glucose Point of Care 414 mg/dL (70-110)
[2020-08-08 20:29] LABS: Glucose Point of Care 405 mg/dL (70-110)
[2020-08-08 23:34] LABS: Glucose Point of Care 337 mg/dL (70-110)
[2020-08-09] VITALS (15 sets, daily range): BP systolic 113–162; BP diastolic 57–79; PULSE 72–76; RESP 16–20; TEMP 36.7–37.2; O2SAT 94–98
[2020-08-09] MEDS: hyDRALAzine 50 mg Tablet PO ×4 (00:05→22:08)
[2020-08-09] MEDS: aspirin 325 mg Tablet PO ×2 (00:05→22:08)
[2020-08-09] MEDS: HYDROcodone-acetaminophen 5-325 mg Tablet 1 TAB PO ×4 (00:05→22:08)
[2020-08-09 05:01] LABS: Hemoglobin 6.7 g/dL (11.5-15.3); Lymphocytes # 0.5 10^3/uL (0.8-4.8); Lymphocytes % 15.4 %; Mean Corpuscular HGB Conc 30.5 g/dL (30.0-36.0); Mean Corpuscular Hemoglobin 29.6 pg (28.0-34.0); Mean Corpuscular Volume 97.3 fL (81-99); Mean Platelet Volume 9.3 fL (7.4-10.4); Monocytes # 0.2 10^3/uL (0.2-0.9); Monocytes % 6.9 %; Neutrophils # 2.36 10^3/uL (1.8-7.7); Nucleated Red Blood Cells % 0 %; Platelet Count 122 10^3/cmm (130-400); Red Blood Count 2.26 10^6/uL (4.1-5.3); Red Cell Distribution Width 17.2 % (12.1-15.1); White Blood Count 3.1 10^3/uL (4.0-10.0)
[2020-08-09 05:26] LABS: Estmated Average Glucose 134; Hemoglobin A1C 6.3 % (4.0-6.0)
[2020-08-09 05:33] LABS: Alanine Aminotransferase 34 U/L (0-33); Albumin Level 2.9 g/dL (3.5-5.2); Alkaline Phosphatase 105 IU/L (35-105); Anion Gap 11.4 (5-19); Aspartate Amino Transferase 40 U/L (0-32); Blood Urea Nitrogen 25 mg/dL (8-23); C Reactive Protein 16.6 mg/L (0.0-4.9); Calcium 8.7 mg/dL (8.5-10.5); Carbon Dioxide 32 mmol/L (22-29); Chloride 100 mmol/L (98-107); Creatine Phosphokinase 35 U/L (26-192); Globulin 2.4 g/dL (1.3-4.6); Glucose 149 mg/dL (65-115); Lactate Dehydrogenase 208 U/L (135-214); NT Pro B Type Natriuretic Pept 173 pg/mL (0-125); Osmolality Calculated 297 mOsm/kg (285-295); Potassium 3.4 mmol/L (3.5-5.1); Sodium 140 mmol/L (136-145); Total Bilirubin 0.2 mg/dL (0.15-1.2); Total Protein 5.3 g/dL (6.6-8.7)
--- NOTE | 2020-08-09 06:00 | XR_ITS ---
WS: [id number] XR chest 1V portable [id number] REASON FOR EXAM: covid FINDINGS: Chest is unchanged compared to 08/07/2020. Moderate tortuosity of the thoracic aorta. Cardiomegaly. Calcified granulomatous changes in both hemithoraces. No active pulmonary parenchymal or pleural disease. XR/XR chest 1V portable [id number] IMPRESSION: Stable chest as above.
[2020-08-09 06:05] LABS: Ferritin 120 ng/mL (15-150)
[2020-08-09 06:06] LABS: Fibrinogen 528 mg/dL (174-498)
[2020-08-09 06:09] LABS: D Dimer 0.66 ug/mIFEU (0-0.59)
[2020-08-09 06:38] LABS: Glucose Point of Care 151 mg/dL (70-110)
[2020-08-09] MEDS: levothyroxine 50 mcg Tablet PO (07:52)
[2020-08-09] MEDS: sulfaSALAzine 500 mg Tablet PO ×2 (07:52→17:29)
[2020-08-09] MEDS: digoxin 125 mcg Tablet PO (07:52)
[2020-08-09] MEDS: ascorbic acid 500 mg Tablet 1000 MG PO ×2 (07:52→17:25)
[2020-08-09] MEDS: ARIPiprazole 10 mg Tablet 5 MG PO (07:53)
[2020-08-09] MEDS: FUROsemide 20 mg Tablet PO (07:53)
[2020-08-09] MEDS: levothyroxine 125 mcg Tablet PO (07:53)
[2020-08-09] MEDS: amlodipine 10 mg Tablet PO (07:53)
[2020-08-09] MEDS: pantoprazole DR 40 mg Tablet PO ×2 (07:54→17:25)
[2020-08-09] MEDS: benzonatate 100 mg Capsule PO ×3 (07:54→21:27)
[2020-08-09] MEDS: BuSPIRONE 10 mg Tablet PO ×2 (07:54→17:25)
[2020-08-09] MEDS: duloxetine 30 mg Capsule PO (07:54)
[2020-08-09] MEDS: folic acid 1 mg Tablet PO (07:54)
[2020-08-09] MEDS: cyanocobalamin 1,000 mcg Tablet 500 MCG PO (07:54)
[2020-08-09] MEDS: albuterol 8 gm MDI 2 PUFF INHALATION (08:00)
--- NOTE | 2020-08-09 08:35 | PC.NURSE ---
Blood bank called and said they have one unit of blood ready. comic writer notified TAYO Stinson
[2020-08-09] MEDS: potassium chloride ER 20 mEq Tablet 40 MEQ PO (09:30)
[2020-08-09] MEDS: metoprolol tartrate 50 mg Tablet 100 MG PO ×2 (09:30→21:27)
[2020-08-09] MEDS: magnesium sulfate premix 2 GM/50 ML PIGGYBACK IV (09:30)
[2020-08-09 11:01] LABS: Glucose Point of Care 226 mg/dL (70-110)
--- NOTE | 2020-08-09 11:10 | P.PN_ITS ---
Subjective Subjective: Interval history: This morning patient was examined, she is laying in bed, on 2.5 L of oxygen, tells me she really wants to be at home with her , and her dog, she is feeling better, no significant fevers, no chills, some subjective shortness of breath with exertion, is worried about her anemia Medications: Reviewed: Yes Vitals/I&O/Wt Last Vital Signs Temp 99.0 F 08/09/20 07:47 Pulse 73 08/09/20 08:00 Resp 18 08/09/20 08:00 BP 162/79 08/09/20 07:47 Pulse Ox 97 08/09/20 08:00 08/08/20 08/09/20 08/09/20 22:59 06:59 14:59 Intake Total 340 / 940 480 / 1420 240 / 240 Output Total 1050 / 2000 700 / 2700 200 / 200 Balance -710 / -1060 -220 / -1280 40 / 40 Weight last 48 hrs Weight 104.326 kg Physical Exam Const: COMMON NORMALS: no acute distress and patient oriented x3 HENMT: COMMON NORMALS: normocephalic HEAD & SCALP: normocephalic Neck/C-Spine: COMMON NORMALS: no JVD Resp: COMMON NORMALS: normal respiratory effort, No retractions, No use of accessory muscles and clear to auscultation bilaterally AUSCULTATION: clear to auscultation bilaterally Cardio: COMMON NORMALS: no JVD, regular rate, regular rhythm, S1 normal heart sound present and S2 normal heart sound present RATE: regular rate RHYTHM: regular rhythm HEART SOUNDS: S1 normal heart sound present and S2 normal heart sound present GI: COMMON NORMALS: Normal to inspection, nondistended, normoactive bowel soun ds present, Soft to palpation, non-tender, No hepatosplenomegaly present, no masses and no bruits PALPATION: Yes Soft to palpation and Yes No hepatosplenomegaly present Extremity: COMMON NORMALS: capillary refill normal, no clubbing, cyanosis or edema, no calf tenderness and no pedal edema Neuro: COMMON NORMALS: patient oriented x3 Psych: COMMON NORMALS: mental status grossly normal Data : 08/09/20 04:50 08/09/20 04:50 Micro: Microbiology 08/08/20 13:50 Blood Culture - Preliminary Blood SPECIMEN COLLECTED 08/08/20 13:20 Blood Culture - Preliminary Blood SPECIMEN COLLECTED A&P Assessment and plan (1) COVID-19: Status: Acute (2) Acute and chronic respiratory failure with hypoxia: Status: Acute (3) COPD (chronic obstructive pulmonary disease): Status: Chronic Qualifiers: COPD type: unspecified COPD Qualified Code(s): J44.9 - Chronic obstructive pulmonary disease, unspecified (4) Heart failure with preserved ejection fraction: Status: Acute (5) Hypertension: Status: Acute Qualifiers: Hypertension type: essential hypertension Qualified Code(s): I10 - Essential (primary) hypertension (6) Hypothyroidism: Status: Acute Qualifiers: Hypothyroidism type: acquired Qualified Code(s): E03.9 - Hypothyroidism, unspecified (7) Intermittent atrial fibrillation: Status: Acute (8) Major depressive disorder, recurrent, in partial remission: Status: Chronic (9) Polypharmacy: Status: Chronic (10) Pancytopenia: Status: Acute Additional A&P Information Acute on chronic hypoxic respiratory failure secondary to COVID-19 pneumonia: Moderate disease. Covid antigen positive, currently requiring 2.5 L nasal cannula oxygen supplementation without acute respiratory distress or chest pain Start patient on antiviral treatment with remdesivir. Vitamin C, zinc. Convert dexamethasone to IV 6 mg daily. Tessalon Perles. Advair, Spiriva. D-dimer elevated. CTA negative for PE. For now hold off on blood thinner as patient's hemoglobin is on the lower side. Continue with home dose of full dose aspirin for now. Low chances of superadded bacterial infection for now. Check procalcitonin, sputum culture, MRSA swab. For now hold off on antibiotics other than azithromycin for a course of 3 days. Oxygen supplementation keeping saturation over 90%. Continue to follow-up inflammatory markers including D-dimer, CRP, fibrinogen, LDH. Pancytopenia secondary to COVID-19, and immunosuppressant such as methotrexate -Anemia, hemoglobin 6.7, multifactorial related to COVID-19, iron deficiency Plan: -We will transfuse 1 unit PRBC -Iron replacement therapy -Hemoccult stool -Monitor hemodynamics closely -White blood cell count 3.1, lymphocyte 0.5, monitor for fevers -Thrombocytopenia, platelet count 122, monitor for bleeding -Hold methotrexate -Continue folic acid, B1, B12 Patient is CPAP at home which she is noncompliant with and has not used for last 3 months as he states Is not functioning. For now will continue to monitor if required can do CPAP overnight. If patient is requiring CPAP we will have to move her to negative pressure room because that will be aerosolizing. COPD: No signs of exacerbation. Steroid and inhaler as above. Congestive heart failure with preserved ejection fraction: Last echocardiogram done in November shows an EF of 70% with grade 1 diastolic dysfunction with mild aortic stenosis. Lexiscan done in December negative for any signs of angina. Continue with home dose of Lasix. Hypertension: Goal blood pressure less than 140/90 allergy. Blood pressure at goal for now. Continue with home dose of metoprolol, amlodipine, hydralazine for now. History of narrow complex tachycardia: EKG reviewed. Consistent with RBBB, normal sinus rhythm with LAFB. Continue home dose of metoprolol and digoxin. Check digoxin levels. Type II diabetes mellitus: Continue with insulin sliding scale at moderate dose. We will continue to monitor blood sugars patient is on steroids now. Pancytopenia: Most likely secondary to COVID-19 pneumonia along with immunosuppressants like methotrexate at home. Check vitamin B12, folate levels. For now hold off on methotrexate. Continue other chronic medications. Polypharmacy and major depressive disorder Considering sleep apnea and multiple comorbid conditions I would hold most of her multivitamins and antipsychotics Full code Consistent carb diet DVT prophylaxis not indicated due to pancytopenia and anemia would use SCDs for now Plan for today, transfuse 1 unit PRBC, low magnesium replaced, replace potassium, monitor for fevers Attestations Medical Necessity Statement*: Patient requires hospitalization for COVID-19, respiratory failure, pancytopenia Coding Level of Care Code Acute Compressor Operator Portable for [facility] Diagnoses COVID-19 U07.1 Acute and chronic respiratory failure with hypoxia J96.21 COPD (chronic obstructive pulmonary disease) J44.9 COPD type: unspecified COPD Heart failure with preserved ejection fraction I50.30 Hypertension I10 Hypertension type: essential hypertension Hypothyroidism E03.9 Hypothyroidism type: acquired Intermittent atrial fibrillation I48.0 Major depressive disorder, recurrent, in partial remission F33.41 Polypharmacy Z79.899 Pancytopenia D61.818
[2020-08-09] MEDS: dexamethasone 4 mg/mL INJ 6 MG IVP (11:28)
[2020-08-09] MEDS: zinc gluconate 50 mg Tablet PO (11:28)
[2020-08-09] MEDS: ferrous gluconate 324 mg Tablet PO (11:28)
[2020-08-09] MEDS: sodium chloride 0.9% (100 ml) 100 ML 150 ML (13:47)
--- NOTE | 2020-08-09 13:49 | PC.RESP ---
Pulmonary Rehab information sent to patient.
[2020-08-09 13:54] LABS: Basophils % 0.3 %; Eosinophils % 0.3 %; Hematocrit 23.1 % (37.0-47.0); Hemoglobin 6.9 g/dL (11.5-15.3); Lymphocytes # 0.4 10^3/uL (0.8-4.8); Lymphocytes % 13.5 %; Mean Corpuscular HGB Conc 29.9 g/dL (30.0-36.0); Mean Corpuscular Hemoglobin 29.7 pg (28.0-34.0); Mean Corpuscular Volume 99.6 fL (81-99); Mean Platelet Volume 9.9 fL (7.4-10.4); Monocytes # 0.2 10^3/uL (0.2-0.9); Monocytes % 4.6 %; Neutrophils # 2.62 10^3/uL (1.8-7.7); Neutrophils % 80.4 %; Nucleated Red Blood Cells % 0 %; Platelet Count 136 10^3/cmm (130-400); Red Blood Count 2.32 10^6/uL (4.1-5.3); Red Cell Distribution Width 17.4 % (12.1-15.1); White Blood Count 3.3 10^3/uL (4.0-10.0)
[2020-08-09 16:48] LABS: Glucose Point of Care 415 mg/dL (70-110)
[2020-08-09] MEDS: remdesivir 100 MG in sodium chloride 0.9% (100 ml) 100 ML IV (17:24)
[2020-08-09 18:46] LABS: Hematocrit 29.5 % (37.0-47.0)
[2020-08-09 19:36] LABS: Hematocrit 26.6 % (37.0-47.0); Hemoglobin 8.3 g/dL (11.5-15.3)
[2020-08-09 20:50] LABS: Glucose Point of Care 398 mg/dL (70-110)
[2020-08-09] MEDS: nystatin powder 15 gm Btl 1 APPLIC TOPICAL (22:09)
[2020-08-10] VITALS (11 sets, daily range): BP systolic 143–165; BP diastolic 71–84; PULSE 64–96; RESP 17–20; TEMP 35.8–37; O2SAT 96–98
[2020-08-10 04:53] LABS: Eosinophils % 0.3 %; Hematocrit 29.8 % (37.0-47.0); Hemoglobin 9.3 g/dL (11.5-15.3); Lymphocytes # 0.5 10^3/uL (0.8-4.8); Lymphocytes % 13.4 %; Mean Corpuscular HGB Conc 31.2 g/dL (30.0-36.0); Mean Corpuscular Volume 96.1 fL (81-99); Mean Platelet Volume 9.2 fL (7.4-10.4); Monocytes # 0.2 10^3/uL (0.2-0.9); Monocytes % 4.8 %; Neutrophils # 3.19 10^3/uL (1.8-7.7); Neutrophils % 80.7 %; Nucleated Red Blood Cells % 0.5 %; Platelet Count 166 10^3/cmm (130-400); Red Cell Distribution Width 17.1 % (12.1-15.1)
[2020-08-10 05:26] LABS: C Reactive Protein 30.9 mg/L (0.0-4.9); Creatine Phosphokinase 38 U/L (26-192); Ferritin 195 ng/mL (15-150); Lactate Dehydrogenase 288 U/L (135-214); NT Pro B Type Natriuretic Pept 188 pg/mL (0-125)
[2020-08-10 05:46] LABS: Fibrinogen 623 mg/dL (174-498)
[2020-08-10 05:52] LABS: D Dimer 0.96 ug/mIFEU (0-0.59)
[2020-08-10 05:56] LABS: Alanine Aminotransferase 46 U/L (0-33); Albumin Level 3.3 g/dL (3.5-5.2); Alkaline Phosphatase 123 IU/L (35-105); Anion Gap 15.9 (5-19); Aspartate Amino Transferase 59 U/L (0-32); Blood Urea Nitrogen 27 mg/dL (8-23); Calcium 9.3 mg/dL (8.5-10.5); Carbon Dioxide 27 mmol/L (22-29); Chloride 101 mmol/L (98-107); Globulin 2.7 g/dL (1.3-4.6); Glucose 197 mg/dL (65-115); Osmolality Calculated 301 mOsm/kg (285-295); Potassium 3.9 mmol/L (3.5-5.1); Sodium 140 mmol/L (136-145); Total Bilirubin 0.2 mg/dL (0.15-1.2)
[2020-08-10 06:39] LABS: Glucose Point of Care 199 mg/dL (70-110)
[2020-08-10] MEDS: levothyroxine 125 mcg Tablet PO (07:57)
[2020-08-10] MEDS: sulfaSALAzine 500 mg Tablet PO ×2 (07:57→17:25)
[2020-08-10] MEDS: benzonatate 100 mg Capsule PO ×3 (07:57→22:24)
[2020-08-10] MEDS: hyDRALAzine 50 mg Tablet PO ×3 (07:57→22:23)
[2020-08-10] MEDS: docusate sodium 100 mg Capsule 200 MG PO (07:57)
[2020-08-10] MEDS: folic acid 1 mg Tablet PO (07:58)
[2020-08-10] MEDS: FUROsemide 20 mg Tablet PO (07:58)
[2020-08-10] MEDS: BuSPIRONE 10 mg Tablet PO ×2 (07:58→17:25)
[2020-08-10] MEDS: ARIPiprazole 10 mg Tablet 5 MG PO (07:59)
[2020-08-10] MEDS: digoxin 125 mcg Tablet PO (07:59)
[2020-08-10] MEDS: HYDROcodone-acetaminophen 5-325 mg Tablet 1 TAB PO ×3 (07:59→22:24)
[2020-08-10] MEDS: ascorbic acid 500 mg Tablet 1000 MG PO ×2 (07:59→17:25)
[2020-08-10] MEDS: pantoprazole DR 40 mg Tablet PO ×2 (07:59→17:25)
[2020-08-10] MEDS: duloxetine 30 mg Capsule PO (07:59)
[2020-08-10] MEDS: levothyroxine 50 mcg Tablet PO (07:59)
[2020-08-10] MEDS: cyanocobalamin 1,000 mcg Tablet 500 MCG PO (07:59)
[2020-08-10] MEDS: amlodipine 10 mg Tablet PO (07:59)
[2020-08-10] MEDS: nystatin powder 15 gm Btl 1 APPLIC TOPICAL ×2 (08:01→17:25)
[2020-08-10] MEDS: albuterol 8 gm MDI 2 PUFF INHALATION ×2 (08:24→21:55)
--- NOTE | 2020-08-10 09:30 | P.PN_ITS ---
Subjective Subjective: Interval history: This morning patient was examined, she is ambulating in a walker, to the commode, tells me she still gets short of breath with exertion, is up to 3 L, having some productive cough, no fevers, chills, no no nausea, no vomiting, no chest pain Vitals/I&O/Wt Last Vital Signs Temp 98.2 F 08/10/20 08:00 Pulse 67 08/10/20 08:25 Resp 20 H 08/10/20 08:25 BP 165/73 08/10/20 08:00 Pulse Ox 98 08/10/20 08:25 08/09/20 08/10/20 08/10/20 22:59 06:59 14:59 Intake Total 830 / 1190 Output Total 250 / 450 Balance 830 / 990 -250 / 740 Physical Exam Const: COMMON NORMALS: no acute distress and patient oriented x3 HENMT: COMMON NORMALS: normocephalic HEAD & SCALP: normocephalic Neck/C-Spine: COMMON NORMALS: no JVD Resp: COMMON NORMALS: normal respiratory effort, No retractions, No use of accessory muscles and clear to auscultation bilaterally AUSCULTATION: clear to auscultation bilaterally Cardio: COMMON NORMALS: no JVD, regular rate, regular rhythm, S1 normal heart sound present and S2 normal heart sound present RATE: regular rate RHYTHM: regular rhythm HEART SOUNDS: S1 normal heart sound present and S2 normal heart sound present GI: COMMON NORMALS: Normal to inspection, nondistended, normoactive bowel sounds present, Soft to palpation, non-tender, No hepatosplenomegaly present, no masses and no bruits PALPATION: Yes Soft to palpation and Yes No hepatosplenomegaly present Extremity: COMMON NORMALS: capillary refill normal, no clubbing, cyanosis or edema, no calf tenderness and no pedal edema Neuro: COMMON NORMALS: patient oriented x3 Psych: COMMON NORMALS: mental status grossly normal Data : 08/10/20 04:35 08/10/20 04:35 Micro: Microbiology 08/08/20 13:50 Blood Culture - Preliminary Blood NEGATIVE TO DATE 08/08/20 13:20 Blood Culture - Preliminary Blood NEGATIVE TO DATE A&P Assessment and plan (1) COVID-19: Status: Acute (2) Acute and chronic respiratory failure with hypoxia: Status: Acute (3) COPD (chronic obstructive pulmonary disease): Status: Chronic Qualifiers: COPD type: unspecified COPD Qualified Code(s): J44.9 - Chronic obstructive pulmonary disease, unspecified (4) Heart failure with preserved ejection fraction: Status: Acute (5) Hypertension: Status: Acute Qualifiers: Hypertension type: essential hypertension Qualified Code(s): I10 - Essential (primary) hypertension (6) Hypothyroidism: Status: Acute Qualifiers: Hypothyroidism type: acquired Qualified Code(s): E03.9 - Hypothyroidism, unspecified (7) Intermittent atrial fibrillation: Status: Acute (8) Major depressive disorder, recurrent, in partial remission: Status: Chronic (9) Polypharmacy: Status: Chronic (10) Pancytopenia: Status: Acute Additional A&P Information Acute on chronic hypoxic respiratory failure secondary to COVID-19 pneumonia: Moderate disease. Covid antigen positive, currently requiring 3 L nasal cannula oxygen supplementation without acute respiratory distress or chest pain On remdesivir day 3 to 5 Vitamin C, zinc. dexamethasone to IV 6 mg daily. Tessalon Perles. Advair, Spiriva. D-dimer elevated. CTA negative for PE. For now hold off on blood thinner as patient's hemoglobin is on the lower side. Continue with home dose of full dose aspirin for now. Low chances of superadded bacterial infection for now. Check procalcitonin, sputum culture, MRSA swab. For now hold off on antibiotics other than azithromycin for a course of 3 days. Oxygen supplementation keeping saturation over 90%. Continue to follow-up inflammatory markers including D-dimer, CRP, fibrinogen, LDH. Pancytopenia secondary to COVID-19, and immunosuppressant such as methotrexate -Improved -Anemia, status post 1 unit PRBC, hemoglobin 9.3, multifactorial related to COVID-19, iron deficiency Plan: -Iron replacement therapy -Hemoccult stool -Monitor hemodynamics closely -White blood cell count 4.0, monitor for fevers -Thrombocytopenia, platelet count 166, monitor for bleeding -Hold methotrexate -Continue folic acid, B1, B12 Patient is CPAP at home which she is noncompliant with and has not used for last 3 months as he states DrAngel Is not functioning. For now will continue to monitor if required can do CPAP overnight. If patient is requiring CPAP we will have to move her to negative pressure room because that will be aerosolizing. COPD: No signs of exacerbation. Steroid and inhaler as above. Congestive heart failure with preserved ejection fraction: Last echocardiogram done in November shows an EF of 70% with grade 1 diastolic dysfunction with mild aortic stenosis. Lexiscan done in December negative for any signs of angina. Continue with home dose of Lasix. Hypertension: Goal blood pressure less than 140/90 allergy. Blood pressure at goal for now. Continue with home dose of metoprolol, amlodipine, hydralazine for now. History of narrow complex tachycardia: EKG reviewed. Consistent with RBBB, normal sinus rhythm with LAFB. Continue home dose of metoprolol and digoxin. Check digoxin levels. Type II diabetes mellitus: Continue with insulin sliding scale at moderate dose. We will continue to monitor blood sugars patient is on steroids now. Pancytopenia: Most likely secondary to COVID-19 pneumonia along with immunosuppressants like methotrexate at home. Check vitamin B12, folate levels. For now hold off on methotrexate. Continue other chronic medications. Polypharmacy and major depressive disorder Considering sleep apnea and multiple comorbid conditions I would hold most of her multivitamins and antipsychotics Full code Consistent carb diet DVT prophylaxis not indicated due to pancytopenia and anemia would use SCDs for now Plan for today, continue to encourage ambulation, aggressive pulmonary toilet, monitor for fevers, add Mucinex Attestations Medical Necessity Statement*: Patient requires hospitalization, for COVID-19 pneumonia, acute respiratory failure, pancytopenia Time Spent in Patient Care: Greater than 35 minutes (>than 50% of time sp ent in counselling and/or direct pt care on unit) . 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
[2020-08-10] MEDS: metoprolol tartrate 50 mg Tablet 100 MG PO ×2 (10:23→22:23)
[2020-08-10] MEDS: guaiFENesin 600 mg Tablet PO ×2 (10:23→17:25)
[2020-08-10 10:54] LABS: Glucose Point of Care 215 mg/dL (70-110)
[2020-08-10] MEDS: zinc gluconate 50 mg Tablet PO (11:27)
[2020-08-10] MEDS: ferrous gluconate 324 mg Tablet PO (11:28)
[2020-08-10] MEDS: dexamethasone 4 mg/mL INJ 6 MG IVP (11:28)
[2020-08-10] MEDS: acetaminophen 325 mg Tablet 650 MG PO (11:33)
[2020-08-10 16:57] LABS: Glucose Point of Care 427 mg/dL (70-110)
[2020-08-10] MEDS: remdesivir 100 MG in sodium chloride 0.9% (100 ml) 100 ML IV (17:25)
[2020-08-10 20:51] LABS: Glucose Point of Care 401 mg/dL (70-110)
[2020-08-10] MEDS: aspirin 325 mg Tablet PO (22:23)
[2020-08-11] VITALS (13 sets, daily range): BP systolic 122–160; BP diastolic 70–81; PULSE 64–81; RESP 16–22; TEMP 36.4–37.2; O2SAT 96–98
[2020-08-11] MEDS: acetaminophen 325 mg Tablet 650 MG PO (01:50)
[2020-08-11 04:20] LABS: Hematocrit 26.9 % (37.0-47.0); Hemoglobin 8.4 g/dL (11.5-15.3); Lymphocytes # 0.4 10^3/uL (0.8-4.8); Lymphocytes % 15.1 %; Mean Corpuscular HGB Conc 31.2 g/dL (30.0-36.0); Mean Corpuscular Hemoglobin 30.2 pg (28.0-34.0); Mean Corpuscular Volume 96.8 fL (81-99); Mean Platelet Volume 9.4 fL (7.4-10.4); Monocytes # 0.2 10^3/uL (0.2-0.9); Neutrophils # 2.18 10^3/uL (1.8-7.7); Neutrophils % 76.8 %; Nucleated Red Blood Cells % 0 %; Platelet Count 140 10^3/cmm (130-400); Red Blood Count 2.78 10^6/uL (4.1-5.3); Red Cell Distribution Width 16.7 % (12.1-15.1); White Blood Count 2.8 10^3/uL (4.0-10.0)
[2020-08-11 04:41] LABS: Fibrinogen 543 mg/dL (174-498)
[2020-08-11 04:43] LABS: D Dimer 0.85 ug/mIFEU (0-0.59)
[2020-08-11 04:47] LABS: Alanine Aminotransferase 46 U/L (0-33); Albumin Level 2.9 g/dL (3.5-5.2); Alkaline Phosphatase 113 IU/L (35-105); Anion Gap 12.7 (5-19); Aspartate Amino Transferase 52 U/L (0-32); Blood Urea Nitrogen 24 mg/dL (8-23); Calcium 8.8 mg/dL (8.5-10.5); Carbon Dioxide 32 mmol/L (22-29); Chloride 102 mmol/L (98-107); Globulin 2.5 g/dL (1.3-4.6); Glucose 159 mg/dL (65-115); Osmolality Calculated 303 mOsm/kg (285-295); Potassium 3.7 mmol/L (3.5-5.1); Sodium 143 mmol/L (136-145); Total Bilirubin 0.2 mg/dL (0.15-1.2); Total Protein 5.4 g/dL (6.6-8.7)
[2020-08-11 04:53] LABS: C Reactive Protein 23.3 mg/L (0.0-4.9); Creatine Phosphokinase 23 U/L (26-192); Ferritin 179 ng/mL (15-150); Lactate Dehydrogenase 259 U/L (135-214); NT Pro B Type Natriuretic Pept 292 pg/mL (0-125)
--- NOTE | 2020-08-11 06:00 | XR_ITS ---
WS: [id number] XR chest 1V portable [id number] REASON FOR EXAM: covid FINDINGS: Comparison chest x-ray 08/09/2020. CT scan of the chest 08/08/2020 demonstrated no significant lung a bnormality. In comparison to previous chest x-ray there is some concern for developing central and left lower bharat g interstitial and patchy infiltrates. Bony thorax is intact. XR/XR chest 1V portable [id number] IMPRESSION: The initial examinations did not reveal an infiltrate. The current examination suggests there may be developing infiltrate in the left lung. Follow-up chest x -ray.
[2020-08-11 07:08] LABS: Glucose Point of Care 204 mg/dL (70-110)
[2020-08-11] MEDS: benzonatate 100 mg Capsule PO ×3 (08:24→22:06)
[2020-08-11] MEDS: guaiFENesin 600 mg Tablet PO ×2 (08:24→17:15)
[2020-08-11] MEDS: sulfaSALAzine 500 mg Tablet PO ×2 (08:24→17:15)
[2020-08-11] MEDS: ARIPiprazole 10 mg Tablet 5 MG PO (08:24)
[2020-08-11] MEDS: amlodipine 10 mg Tablet PO (08:25)
[2020-08-11] MEDS: cyanocobalamin 1,000 mcg Tablet 500 MCG PO (08:25)
[2020-08-11] MEDS: folic acid 1 mg Tablet PO (08:25)
[2020-08-11] MEDS: levothyroxine 125 mcg Tablet PO (08:25)
[2020-08-11] MEDS: levothyroxine 50 mcg Tablet PO (08:25)
[2020-08-11] MEDS: HYDROcodone-acetaminophen 5-325 mg Tablet 1 TAB PO ×3 (08:25→22:07)
[2020-08-11] MEDS: duloxetine 30 mg Capsule PO (08:25)
[2020-08-11] MEDS: hyDRALAzine 50 mg Tablet PO ×3 (08:25→22:07)
[2020-08-11] MEDS: digoxin 125 mcg Tablet PO (08:26)
[2020-08-11] MEDS: ascorbic acid 500 mg Tablet 1000 MG PO ×2 (08:26→17:15)
[2020-08-11] MEDS: FUROsemide 20 mg Tablet PO (08:28)
[2020-08-11] MEDS: BuSPIRONE 10 mg Tablet PO ×2 (08:28→17:15)
[2020-08-11] MEDS: nystatin powder 15 gm Btl 1 APPLIC TOPICAL ×2 (08:28→17:16)
[2020-08-11] MEDS: pantoprazole DR 40 mg Tablet PO ×2 (08:28→17:15)
[2020-08-11] MEDS: albuterol 8 gm MDI 2 PUFF INHALATION ×2 (09:22→20:31)
[2020-08-11] MEDS: metoprolol tartrate 50 mg Tablet 100 MG PO ×2 (09:27→22:07)
--- NOTE | 2020-08-11 10:28 | P.PN_ITS ---
Subjective Subjective: Interval history: This morning patient was examined, she is a bit tired this morning, tells me that she does get winded with exertion, no fevers overnight,, no nausea, no vomiting, no chest pain Vitals/I&O/Wt Last Vital Signs Temp 98.1 F 08/11/20 07:16 Pulse 81 08/11/20 09:39 Resp 18 08/11/20 09:28 BP 160/70 08/11/20 07:16 Pulse Ox 96 08/11/20 09:28 08/10/20 08/11/20 08/11/20 22:59 06:59 14:59 Intake Total 260 / 1100 340 / 340 Output Total 900 / 2000 550 / 2550 200 / 200 Balance -900 / -1160 -290 / -1450 140 / 140 Physical Exam Const: COMMON NORMALS: no acute distress and patient oriented x3 HENMT: COMMON NORMALS: normocephalic HEAD & SCALP: normocephalic Neck/C-Spine: COMMON NORMALS: no JVD Resp: COMMON NORMALS: normal respiratory effort, No retractions and No use of accessory muscles AUSCULTATION: diminished lung sounds Cardio: COMMON NORMALS: no JVD, regular rate, regular rhythm, S1 normal heart sound present and S2 normal heart sound present RATE: regular rate RHYTHM: regular rhythm HEART SOUNDS: S1 normal heart sound present and S2 normal heart sound present GI: COMMON NORMALS: Normal to inspection, nondistended, normoactive bowel sounds present, Soft to palpation, non-tender, No hepatosplenomegaly present, no masses and no bruits PALPATION: Yes Soft to palpation and Yes No hepatosplenomegaly present Extremity: COMMON NORMALS: capillary refill normal, no clubbing, cyanosis or edema, no calf tenderness and no pedal edema Neuro: COMMON NORMALS: patient oriented x3 Psych: COMMON NORMALS: mental status grossly normal Data : 08/11/20 03:56 08/11/20 03:56 A&P Assessment and plan (1) COVID-19: Status: Acute (2) Acute and chronic respiratory failure with hypoxia: Status: Acute (3) COPD (chronic obstructive pulmonary disease): Status: Chronic Qualifiers: COPD type: unspecified COPD Qualified Code(s): J44.9 - Chronic obstructive pulmonary disease, unspecified (4) Heart failure with preserved ejection fraction: Status: Acute (5) Hypertension: Status: Acute Qualifiers: Hypertension type: essential hypertension Qualified Code(s): I10 - Essential (primary) hypertension (6) Hypothyroidism: Status: Acute Qualifiers: Hypothyroidism type: acquired Qualified Code(s): E03.9 - Hypothyroidism, unspecified (7) Intermittent atrial fibrillation: Status: Acute (8) Major depressive disorder, recurrent, in partial remission: Status: Chronic (9) Polypharmacy: Status: Chronic (10) Pancytopenia: Status: Acute Additional A&P Information Acute on chronic hypoxic respiratory failure secondary to COVID-19 pneumonia: Moderate disease. Covid antigen positive, currently requiring 3 L nasal cannula oxygen supplementation without acute respiratory distress or chest pain On remdesivir day 4 of 5 Vitamin C, zinc. dexamethasone to IV 6 mg daily. Tessalon Perles. Advair, Spiriva. D-dimer elevated. CTA negative for PE. For now hold off on blood thinner as patient's hemoglobin is on the lower side. Continue with home dose of full dose aspirin for now. Low chances of superadded bacterial infection for now. Check procalcitonin, sputum culture, MRSA swab. For now hold off on antibiotics other than azithromycin for a course of 3 days. Oxygen supplementation keeping saturation over 90%. Continue to follow-up inflammatory markers including D-dimer, CRP, fibrinogen, LDH. Pancytopenia secondary to COVID-19, and immunosuppressant such as methotrexate -Improved -Anemia, status post 1 unit PRBC, hemoglobin 8.4, multifactorial related to COVID-19, iron deficiency Plan: -Iron replacement therapy -Hemoccult stool -Monitor hemodynamics closely -White blood cell count 2.8, lymphopenic, monitor for fevers -Thrombocytopenia, platelet count 144, monitor for bleeding -Hold methotrexate -Continue folic acid, B1, B12 Patient is CPAP at home which she is noncompliant with and has not used for last 3 months as he states Is not functioning. For now will continue to monitor if required can do CPAP overnight. If patient is requiring CPAP we will have to move her to negative pressure room because that will be aerosolizing. COPD: No signs of exacerbation. Steroid and inhaler as above. Congestive heart failure with preserved ejection fraction: Last echocardiogram done in November shows an EF of 70% with grade 1 diastolic dysfunction with mild aortic stenosis. Lexiscan done in December negative for any signs of angina. Continue with home dose of Lasix. Hypertension: Goal blood pressure less than 140/90 allergy. Blood pressure at goal for now. Continue with home dose of metoprolol, amlodipine, hydralazine for now. History of narrow complex tachycardia: EKG reviewed. Consistent with RBBB, normal sinus rhythm with LAFB. Continue home dose of metoprolol and digoxin. Check digoxin levels. Type II diabetes mellitus: Continue with insulin sliding scale at moderate dose. We will continue to monitor blood sugars patient is on steroids now. Pancytopenia: Most likely secondary to COVID-19 pneumonia along with immunosuppressants like methotrexate at home. Check vitamin B12, folate levels. For now hold off on methotrexate. Continue other chronic medications. Polypharmacy and major depressive disorder Considering sleep apnea and multiple comorbid conditions I would hold most of her multivitamins and antipsychotics Full code Consistent carb diet DVT prophylaxis not indicated due to pancytopenia and anemia would use SCDs for now Plan for today, continue to encourage ambulation, aggressive pulmonary toilet, monitor for fevers, hopefully discharge the next 24 hours Attestations Medical Necessity Statement*: Patient claims hospitalization, for COVID-19 pneumonia, pancytopenia Coding Level of Care Code Acute Consulting Group Analyst for [facility] Diagnoses COVID-19 U07.1 Acute and chronic respiratory failure with hypoxia J96.21 COPD (chronic obstructive pulmonary disease) J44.9 COPD type: unspecified COPD Heart failure with preserved ejection fraction I50.30 Hypertension I10 Hypertension type: essential hypertension Hypothyroidism E03.9 Hypothyroidism type: acquired Intermittent atrial fibrillation I48.0 Major depressive disorder, recurrent, in partial remission F33.41 Polypharmacy Z79.899 Pancytopenia D61.818
[2020-08-11 10:52] LABS: Glucose Point of Care 270 mg/dL (70-110)
[2020-08-11] MEDS: ferrous gluconate 324 mg Tablet PO (11:18)
[2020-08-11] MEDS: zinc gluconate 50 mg Tablet PO (11:18)
[2020-08-11] MEDS: dexamethasone 4 mg/mL INJ 6 MG IVP (11:19)
--- NOTE | 2020-08-11 15:23 | PC.NURSE ---
pt refused her vitals signs. pt is agitated and confused. pt states she just wants to go home. does not want her vitals or medication at this time.
[2020-08-11] MEDS: remdesivir 100 MG in sodium chloride 0.9% (100 ml) 100 ML IV (17:14)
[2020-08-11 17:43] LABS: Glucose Point of Care 334 mg/dL (70-110)
[2020-08-11 20:39] LABS: Glucose Point of Care 342 mg/dL (70-110)
[2020-08-11] MEDS: aspirin 325 mg Tablet PO (22:07)
[2020-08-12] VITALS (7 sets, daily range): BP systolic 114–182; BP diastolic 62–93; PULSE 71–104; RESP 17–20; TEMP 36.8–37.2; O2SAT 94–97
[2020-08-12 05:11] LABS: Hematocrit 27.6 % (37.0-47.0); Hemoglobin 8.6 g/dL (11.5-15.3); Lymphocytes # 0.6 10^3/uL (0.8-4.8); Lymphocytes % 17.7 %; Mean Corpuscular HGB Conc 31.2 g/dL (30.0-36.0); Mean Corpuscular Volume 96.2 fL (81-99); Mean Platelet Volume 9.4 fL (7.4-10.4); Monocytes # 0.2 10^3/uL (0.2-0.9); Neutrophils # 2.54 10^3/uL (1.8-7.7); Neutrophils % 73.6 %; Nucleated Red Blood Cells % 0.6 %; Platelet Count 159 10^3/cmm (130-400); Red Blood Count 2.87 10^6/uL (4.1-5.3); Red Cell Distribution Width 16.4 % (12.1-15.1); White Blood Count 3.5 10^3/uL (4.0-10.0)
[2020-08-12 05:21] LABS: D Dimer 1.03 ug/mIFEU (0-0.59)
[2020-08-12 05:43] LABS: C Reactive Protein 14.3 mg/L (0.0-4.9); Magnesium 1.7 mg/dL (1.7-2.3); Phosphorus 2.6 mg/dL (2.5-4.5)
[2020-08-12 05:47] LABS: Alanine Aminotransferase 60 U/L (0-33); Albumin Level 2.8 g/dL (3.5-5.2); Alkaline Phosphatase 123 IU/L (35-105); Anion Gap 11.4 (5-19); Aspartate Amino Transferase 57 U/L (0-32); Blood Urea Nitrogen 30 mg/dL (8-23); Calcium 8.7 mg/dL (8.5-10.5); Carbon Dioxide 32 mmol/L (22-29); Chloride 101 mmol/L (98-107); Globulin 2.6 g/dL (1.3-4.6); Glucose 267 mg/dL (65-115); Osmolality Calculated 308 mOsm/kg (285-295); Potassium 3.4 mmol/L (3.5-5.1); Sodium 141 mmol/L (136-145); Total Bilirubin 0.2 mg/dL (0.15-1.2); Total Protein 5.4 g/dL (6.6-8.7)
[2020-08-12 05:51] LABS: NT Pro B Type Natriuretic Pept 295 pg/mL (0-125); Procalcitonin 0.29 ng/mL (0-0.5)
[2020-08-12 06:51] LABS: Glucose Point of Care 234 mg/dL (70-110)
--- NOTE | 2020-08-12 07:00 | XR_ITS ---
WS: [id number] XR chest 1V portable [id number] REASON FOR EXAM: sob FINDINGS: In follow-up to the examination of 08/11/2020, a left lung field infiltrate is not identified. In com paring the 2 examinations, likely the appearance was created by rotation of the patient which placed the hilar structures out over the left lung field. The current chest x-ray is unchanged compared to 1 10/08/2019 and 08/09/2020. XR/XR chest 1V portable [id number] IMPRESSION: The chest is stable compared to previous examinations with no definite acute ab normality as above.
[2020-08-12] MEDS: digoxin 125 mcg Tablet PO (08:01)
[2020-08-12] MEDS: guaiFENesin 600 mg Tablet PO ×2 (08:01→17:01)
[2020-08-12] MEDS: ARIPiprazole 10 mg Tablet 5 MG PO (08:02)
[2020-08-12] MEDS: benzonatate 100 mg Capsule PO ×2 (08:02→17:01)
[2020-08-12] MEDS: ascorbic acid 500 mg Tablet 1000 MG PO ×2 (08:02→17:01)
[2020-08-12] MEDS: cyanocobalamin 1,000 mcg Tablet 500 MCG PO (08:02)
[2020-08-12] MEDS: HYDROcodone-acetaminophen 5-325 mg Tablet 1 TAB PO ×2 (08:02→17:01)
[2020-08-12] MEDS: levothyroxine 50 mcg Tablet PO (08:02)
[2020-08-12] MEDS: levothyroxine 125 mcg Tablet PO (08:02)
[2020-08-12] MEDS: sulfaSALAzine 500 mg Tablet PO ×2 (08:02→17:02)
[2020-08-12] MEDS: duloxetine 30 mg Capsule PO (08:02)
[2020-08-12] MEDS: BuSPIRONE 10 mg Tablet PO ×2 (08:03→17:01)
[2020-08-12] MEDS: nystatin powder 15 gm Btl 1 APPLIC TOPICAL ×2 (08:03→17:02)
[2020-08-12] MEDS: amlodipine 10 mg Tablet PO (08:03)
[2020-08-12] MEDS: folic acid 1 mg Tablet PO (08:03)
[2020-08-12] MEDS: FUROsemide 20 mg Tablet PO (08:03)
[2020-08-12] MEDS: hyDRALAzine 50 mg Tablet PO ×2 (08:03→17:01)
[2020-08-12] MEDS: pantoprazole DR 40 mg Tablet PO ×2 (08:03→17:01)
[2020-08-12] MEDS: albuterol 8 gm MDI 2 PUFF INHALATION (08:30)
--- NOTE | 2020-08-12 09:56 | P.DS_ITS ---
Discharge Providers Date of Admission: 08/08/20 12:21 Date of Discharge: August 12, 2020 Attending Provider at Admission: Tim Robert MD Attending Provider at Discharge: Jace Renee MD Primary Care Provider: Ami Perez DO Diagnoses at Discharge Discharge Diagnosis (1) COVID-19: Status: Acute (2) Acute and chronic respiratory failure with hypoxia: Status: Acute (3) COPD (chronic obstructive pulmonary disease): Status: Chronic Permanent problem details: Oxygen dependent, 2 L at baseline Qualifiers: COPD type: unspecified COPD Qualified Code(s): J44.9 - Chronic obstructive pulmonary disease, unspecified (4) Heart failure with preserved ejection fraction: Status: Acute (5) Hypertension: Status: Acute Qualifiers: Hypertension type: essential hypertension Qualified Code(s): I10 - Essential (primary) hypertension (6) Hypothyroidism: Status: Acute Qualifiers: Hypothyroidism type: acquired Qualified Code(s): E03.9 - Hypothyroidism, unspecified (7) Intermittent atrial fibrillation: Status: Acute Permanent problem details: Because the patient history of frequent fall she was thought to be high risk for bleeding complications. So she is taking only the aspirin at this time. SHE HAS EASY BRUISING WELL (8) Major depressive disorder, recurrent, in partial remission: Status: Chronic (9) Polypharmacy: Status: Chronic (10) Pancytopenia: Status: Acute Reason for Visit Reason for Visit: Chest Pain/Body Aches/SOB/recent exposure Hospital Course Hospital Course This is a 69-year-old female with a past medical history of diastolic CHF, history of atrial fibrillation not on anticoagulation due to risk of falls, rheumatoid arthritis on methotrexate, chronic macrocytic anemia, COPD 2 L oxygen dependent, anxiety depression, hypertension, hyperlipidemia, hypothyroidism, who presents to [facility] shortness of breath Patient was admitted to [facility] for acute hypoxic respiratory failure secondary COVID-19, admitted to the general medical floors Covid unit, received Decadron, remdesivir, azithromycin, and clinically monitored. Patient status clinically improved, respiratory status improved, ambulating without significant symptomatology, afebrile, discharged on her home 2 L, with a prednisone taper, doxycycline, Advair, albuterol, instructions to drink plenty of electrolyte balance fluids, socially distance, self isolate, hand wash, follow-up with primary care in 2 weeks. For rheumatoid arthritis, patient was advised to hold methotrexate until she is seen by rheumatology Patient also developed pancytopenia during her hospitalization secondary to COVID-19 -Anemia of 6.7, requiring 1 unit PRBC, hemoglobin on discharge 8.6 -Thrombocytopenia, 122, discharged platelet count 159 -Lymphopenia, as low as 2.8, white blood cell count on discharge is 3.5, afebrile, blood cultures within normal limits -Patient is to repeat blood work in 1 week -If she were to feel lightheaded or dizzy, or fall come back to emergency room In terms of anticoagulation for hypercoagulablilty prophylaxis in COVID-19, she was kept on aspirin during her hospital admission due to risk of bleeding, discharging her on oral anticoagulants given her risk of falls, significant anemia, would carry greater risks than benefit. This was discussed in detail with the patient, she voiced understanding, all questions answered, agreed to proceed with aspirin 81 mg on discharge. If she were to have sudden worsening shortness of breath, bilateral lower extremity calf swelling, hematemesis please come back to the emergency room Patient also has a history of a complex renal cyst on the left, patient will follow up with urology as outpatient Physical Exam Const: COMMON NORMALS: no acute distress and patient oriented x3 HENMT: COMMON NORMALS: normocephalic HEAD & SCALP: normocephalic Neck/C-Spine: COMMON NORMALS: no JVD Resp: COMMON NORMALS: normal respiratory effort, No retractions, No use of a ccessory muscles and clear to auscultation bilaterally AUSCULTATION: clear to auscultation bilaterally Cardio: COMMON NORMALS: no JVD, regular rate, regular rhythm, S1 normal heart sound present and S2 normal heart sound present RATE: regular rate RHYTHM: regular rhythm HEART SOUNDS: S1 normal heart sound present and S2 normal heart sound present GI: COMMON NORMALS: Normal to inspection, nondistended, normoactive bowel sounds present, Soft to palpation, non-tender, No hepatosplenomegaly present, no masses and no bruits PALPATION: Yes Soft to palpation and Yes No hepatosplenomegaly present Extremity: COMMON NORMALS: capillary refill normal, no clubbing, cyanosis or edema, no calf tenderness and no pedal edema Neuro: COMMON NORMALS: patient oriented x3 Psych: COMMON NORMALS: mental status grossly normal Discharge Data Data Completed and Pending: Completed Studies During Hospitalization Category Date Time Status CT angio chest PE protcl [id number] Urge nt Cat Scan 08/08/20 12:20 Completed XR chest 1V teetee ble [id number] Q48H Exams 08/09/20 06:00 Completed XR chest 1V teetee ble [id number] Q48H Exams 08/11/20 06:00 Completed XR chest 1V teetee ble [id number] Routine Exams 08/12/20 07:00 Completed XR chest 1V teetee ble [id number] Stat Exams 08/07/20 16:09 Completed Pending at discharge Category Date Time Status XR chest 1V teetee ble [id number] Q48H Exams 08/13/20 06:00 Ordered Blood Culture Sta t Lab 08/08/20 13:50 Results C Reactive Protei n AM LABS Lab 08/13/20 04:00 Ordered C Reactive Protei n AM LABS Lab 08/14/20 04:00 Ordered Clostridioides Di fficile PCR Routin e Lab 08/08/20 11:30 Results D Dimer AM LABS Lab 08/13/20 04:00 Ordered D Dimer AM LABS Lab 08/14/20 04:00 Ordered Enteric Bacterial Panel by PCR Rout ine Lab 08/08/20 11:30 Results Enteric Parasite Panel by PCR Routi ne Lab 08/08/20 11:30 Results Gram Stain Routin e Lab 08/10/20 02:44 Ordered Immunochemical Fe cira OCB Routine Lab 08/08/20 11:30 Results Lactoferrin Routi ne Lab 08/08/20 11:30 Results MRSA by PCR Routi ne Lab 08/08/20 14:00 Received Magnesium AM LABS Lab 08/13/20 04:00 Ordered Magnesium AM LABS Lab 08/14/20 04:00 Ordered NT Pro B Type Nati riuretic Pept QAM Lab 08/13/20 06:00 Ordered NT Pro B Type Nati riuretic Pept QAM Lab 08/14/20 06:00 Ordered PRBC [Leukocyte R educed RBC] NOW Lab 08/09/20 06:45 Results Phosphorus AM LAB S Lab 08/13/20 04:00 Ordered Phosphorus AM LAB S Lab 08/14/20 04:00 Ordered Procalcitonin AM LABS Lab 08/13/20 04:00 Ordered Procalcitonin AM LABS Lab 08/14/20 04:00 Ordered Sputum Culture Ro utine Lab 08/10/20 02:44 Ordered Type and Screen R outine Lab 08/09/20 06:45 Results Labs from last 24 hours 08/12/20 08/12/20 08/12/20 06:33 04:06 04:06 WBC RBC Hgb Hct MCV MCH MCHC RDW Plt Count MPV Neut % (Auto) Lymph % (Auto) Starke % (Auto) Eos % (Auto) Baso % (Auto) Neut # (Auto) Lymph # (Auto) Starke # (Auto) Eos # (Auto) Baso # (Auto) Nucleated RBC % (a uto) Nucleated RBCs # D-Dimer 1.03 H Sodium Potassium Chloride Carbon Dioxide Anion Gap BUN Creatinine GFR Calculation Glucose POC Glucose 234 Calculated Osmolal ity Calcium Phosphorus Magnesium Total Bilirubin AST ALT Alkaline Phosphata se C-Reactive Protein NT-Pro-B Natriuret Pep 295 H Total Protein Albumin Globulin Procalcitonin 0.29 08/12/20 08/12/20 08/12/20 04:06 04:06 04:06 WBC 3.5 L RBC 2.87 L Hgb 8.6 L Hct 27.6 L MCV 96.2 MCH 30.0 MCHC 31.2 RDW 16.4 H Plt Count 159 MPV 9.4 Neut % (Auto) 73.6 Lymph % (Auto) 17.7 Starke % (Auto) 7.0 Eos % (Auto) 0.0 Baso % (Auto) 0.0 Neut # (Auto) 2.54 Lymph # (Auto) 0.6 L Starke # (Auto) 0.2 Eos # (Auto) 0.0 Baso # (Auto) 0.0 Nucleated RBC % (a uto) 0.6 Nucleated RBCs # 0.0 D-Dimer Sodium 141 Potassium 3.4 L Chloride 101 Carbon Dioxide 32 H Anion Gap 11.4 BUN 30 H Creatinine 0.9 GFR Calculation Not Reportable Glucose 267 H POC Glucose Calculated Osmolal ity 308 H Calcium 8.7 Phosphorus 2.6 Magnesium 1.7 Total Bilirubin 0.2 AST 57 H ALT 60 H Alkaline Phosphata se 123 H C-Reactive Protein 14.3 H NT-Pro-B Natriuret Pep Total Protein 5.4 L Albumin 2.8 L Globulin 2.6 Procalcitonin 08/11/20 08/11/20 08/11/20 20:14 16:34 10:44 WBC RBC Hgb Hct MCV MCH MCHC RDW Plt Count MPV Neut % (Auto) Lymph % (Auto) Starke % (Auto) Eos % (Auto) Baso % (Auto) Neut # (Auto) Lymph # (Auto) Starke # (Auto) Eos # (Auto) Baso # (Auto) Nucleated RBC % (a uto) Nucleated RBCs # D-Dimer Sodium Potassium Chloride Carbon Dioxide Anion Gap BUN Creatinine GFR Calculation Glucose POC Glucose 342 334 270 Calculated Osmolal ity Calcium Phosphorus Magnesium Total Bilirubin AST ALT Alkaline Phosphata se C-Reactive Protein NT-Pro-B Natriuret Pep Total Protein Albumin Globulin Procalcitonin Vitals: Last Vital Signs Temp 98.7 F 08/12/20 08:00 Pulse 73 08/12/20 08:30 Resp 20 H 08/12/20 08:30 BP 182/93 08/12/20 08:00 Pulse Ox 95 08/12/20 08:30 Discharge Plan Discharge Patient Disposition: Home Condition: Stable Prescriptions: New cyanocobalamin (vitamin B-12) [Vitamin B-12] 1,000 mcg Tablet 500 mcg PO DAILY 30 Days Qty: 30 RF: 0 ascorbic acid (vitamin C) [Vitamin C] 500 mg Tablet 1,000 mg PO BID 15 Days Qty: 60 RF: 0 guaifenesin [Mucinex] 600 mg Tablet Extended Release 12hr 600 mg PO BID 15 Days Qty: 30 RF: 0 albuterol sulfate 90 mcg/actuation HFA aerosol inhaler 1 inh inhalation Q6H PRN (Reason: shortness of breath or wheezing) Qty: 18 RF: 0 folic acid 1 mg Tablet 1 mg PO DAILY 30 Days Qty: 30 RF: 0 benzonatate 100 mg Capsule 100 mg PO TID PRN (Reason: cough) 15 Days Qty: 45 RF: 0 fluticasone propion-salmeterol [Advair Diskus] 250-50 mcg/dose Blister With Device 1 ea inhalation BID.RESPIRATORY Qty: 60 RF: 0 doxycycline hyclate 100 mg tablet 100 mg PO BID 7 Days Qty: 14 RF: 0 prednisone 20 mg tablet 20 mg PO BID 5 Days Qty: 10 RF: 0 aspirin [Aspirin Childrens] 81 mg tablet,chewable 81 mg PO DAILY 30 Days Qty: 30 RF: 0 Continued garlic 1,000 mg capsule 1,000 mg PO DAILY@08 RF: 0 ferrous gluconate 324 mg (37.5 mg iron) tablet 324 mg PO DAILY@12 RF: 0 Novolin 70/30 U-100 Insulin 100 unit/mL (70-30) suspension See Rx Instructions .ROUTE .COMPLEX RF: 0 folic acid 800 mcg tablet 0.8 mg PO DAILY@12 RF: 0 furosemide [Lasix] 20 mg tablet 20 mg PO DAILY@08 RF: 0 levothyroxine 175 mcg capsule 175 mcg PO DAILY@08 RF: 0 potassium chloride 20 mEq tablet extended release 20 meq PO BID@, RF: 0 tizanidine 4 mg tablet 4 mg PO TID PRN (Reason: muscle spasticity) Qty: 90 RF: 1 atorvastatin [Lipitor] 40 mg Tablet 40 mg PO DAILY@23 RF: 0 pantothenic acid (vit B5) 500 mg Tablet 500 mg PO DAILY@08 RF: 0 chlorpheniramine maleate [ChlorTabs] 4 mg Tablet 4 mg PO TID@,, PRN (Reason: UNKNOWN) RF: 0 carica papaya [Papaya Enzyme] Tablet 4 tab PO PRN RF: 0 riboflavin (vitamin B2) [Vitamin B-2] 100 mg Tablet 100 mg PO DAILY@08 RF: 0 ondansetron HCl [Zofran] 4 mg Tablet 4 mg PO DAILY PRN (Reason: Nausea) RF: 0 loperamide [Anti-Diarrheal (loperamide)] 2 mg Tablet 2 - 4 mg PO PRN PRN (Reason: Diarrhea) RF: 0 cyanocobalamin (vitamin B-12) [Vitamin B-12] 1,000 mcg Tablet 1,000 mcg PO DAILY@08 RF: 0 acetaminophen [Arthritis Pain Reliever] 650 mg Tablet Extended Release 650 mg PO PRN RF: 0 diphenhydramine HCl [Benadryl] 25 mg Capsule 25 mg PO PRN PRN (Reason: ALLERGIES) RF: 0 nitroglycerin [Nitrostat] 0.4 mg Tablet, Sublingual 0.4 mg SUBLINGUAL Q5M PRN (Reason: Chest Pain) RF: 0 docusate sodium [Stool Softener] 100 mg Capsule 200 mg PO BID@, PRN (Reason: Constipation) RF: 0 zinc 50 mg Tablet 50 mg PO DAILY@12 RF: 0 pyridoxine (vitamin B6) [Vitamin B-6] 100 mg Tablet 100 mg PO DAILY@08 RF: 0 vitamin E 400 unit Capsule 400 unit PO DAILY@08 RF: 0 loratadine 10 mg Tablet 20 mg PO DAILY@08 RF: 0 methylsulfonylmethane [MSM] 1,000 mg Tablet 1,000 mg PO BID@ RF: 0 magnesium L-lactate [Magtab] 84 mg tablet extended release 84 mg PO BID@ RF: 0 cholecalciferol (vitamin D3) [Vitamin D3] 25 mcg (1,000 unit) Tablet 1,000 unit PO DAILY@08 RF: 0 omega 9-qyk-yla-fish oil [Ultra Olin-3] 500-1,000 mg Capsule 2 cap PO DAILY@23 RF: 0 Liver Aid 2 tab PO DAILY@08 RF: 0 cranberry 1 tab PO DAILY@08 RF: 0 black cohosh 40 mg Tablet 40 mg PO BID RF: 0 albuterol sulfate 90 mcg/actuation Hfa Aerosol Inhaler 2 puff INHALATION TID PRN (Reason: Shortness Of Breath) RF: 0 amlodipine 10 mg Tablet 10 mg PO DAILY@08 RF: 0 insulin lispro [Admelog U-100 Insulin lispro] 100 unit/mL Solution See Rx Instructions .ROUTE .COMPLEX RF: 0 metoprolol tartrate 100 mg tablet 100 mg PO Q12H RF: 0 sulfasalazine 500 mg tablet 0.5 gm PO BID@ RF: 0 hydrocodone-acetaminophen 5-325 mg tablet 1 tab PO TID@ RF: 0 tramadol 50 mg tablet 100 mg PO TID@ PRN (Reason: pain) RF: 0 Protonix 40 mg tablet,delayed release (DR/EC) 40 mg PO DAILY@08 RF: 0 buspirone 10 mg tablet 10 mg PO BID@ RF: 0 hydralazine 50 mg tablet 50 mg PO TID@, RF: 0 Lanoxin 125 mcg (0.125 mg) tablet 125 mcg PO DAILY@08 RF: 0 Abilify 5 mg tablet 5 mg PO DAILY@08 RF: 0 Cymbalta 30 mg capsule,delayed release(DR/EC) 30 mg PO DAILY@08 RF: 0 Cymbalta 60 mg capsule,delayed release(DR/EC) 60 mg PO DAILY@08 RF: 0 Held prednisone 2.5 mg tablet See Rx Instructions PO DAILY Qty: 45 RF: 3 Hold Instructions: star after prednisone burst methotrexate sodium 2.5 mg tablet 10 mg PO Q7D RF: 0 Hold Instructions: Resume on 09/02/20. until seen by rheumatology Discontinued aspirin 325 mg tablet 325 mg PO DAILY@23 RF: 0 Discharge Orders: Discharge Order (Routine); Ordered 08/12/20 Ordered By: Jace Renee Referrals: Ami Perez DO [Primary Care Provider] - [facility], [Staff Physician] - Discharge Diet: Cardiac Discharge Activity: Resume usual activity Discharge Attestations Time Spent in Discharge Care*: less than 30 min Status at Discharge: Cognitive status at discharge: cognitively intact , Behavioral status at discharge: cooperative , Quality Metrics Clinical Quality Measures During this hospital stay, did patient experience: None Coding Level of Care Code Acute Medicare Interviewer for [facility] Diagnoses COVID-19 U07.1 Acute and chronic respiratory failure with hypoxia J96.21 COPD (chronic obstructive pulmonary disease) J44.9 COPD type: unspecified COPD Heart failure with preserved ejection fraction I50.30 Hypertension I10 Hypertension type: essential hypertension Hypothyroidism E03.9 Hypothyroidism type: acquired Intermittent atrial fibrillation I48.0 Major depressive disorder, recurrent, in partial remission F33.41 Polypharmacy Z79.899 Pancytopenia D61.818
[2020-08-12] MEDS: metoprolol tartrate 50 mg Tablet 100 MG PO (10:58)
[2020-08-12] MEDS: potassium chloride ER 20 mEq Tablet 40 MEQ PO (11:03)
[2020-08-12 11:12] LABS: Glucose Point of Care 224 mg/dL (70-110)
[2020-08-12] MEDS: dexamethasone 4 mg/mL INJ 6 MG IVP (12:06)
[2020-08-12] MEDS: ferrous gluconate 324 mg Tablet PO (12:06)
[2020-08-12] MEDS: zinc gluconate 50 mg Tablet PO (12:06)
[2020-08-12] MEDS: acetaminophen 325 mg Tablet 650 MG PO (12:54)
[2020-08-12 16:15] LABS: Glucose Point of Care 310 mg/dL (70-110)
[2020-08-12] MEDS: remdesivir 100 MG in sodium chloride 0.9% (100 ml) 100 ML IV (17:00)
--- NOTE | 2020-08-16 14:07 | PC.SOCIAL ---
Follow up call completed. Patient spouse was the one on the phone with patient beside him. He indicates patient continues to have shortness of breath. Patient indicates it is about the same since returning home and has not worsened. indicates she is still quite weak but seems to be a little better than when she first returned home. We reviewed medications and indicates they have no questions. We discussed adding activity gradually and taking plenty of breaks. We discussed wearing mask in public, wash hands 20 seconds at at time, maintain social distancing of 6feet and to disinfect highly utilized surfaces. She has appt with PCP today at 2:45. He indicates she will not be interested in plasma donation.
== END 2020-08-12 18:42 | disposition home health service (06) | DRG 177 ==
LOC: ER 19:25 → MEDSURG 19:46
PROVIDERS: Registered Nurse; Student in an Organized Health Care Education/Training Program; Admitting Provider Internal Medicine; Emergency Provider Emergency Medicine; PCP Internal Medicine; Visit Provider Family Medicine
DX: U07.1 COVID-19 (principal); J12.89 Other viral pneumonia; J96.21 Acute and chronic respiratory failure with hypoxia; I50.32 Chronic diastolic (congestive) heart failure; D61.818 Other pancytopenia; J44.0 Chronic obstructive pulmonary disease with (acute) lower respiratory infection; D84.821 Immunodeficiency due to drugs; I11.0 Hypertensive heart disease with heart failure; I48.0 Paroxysmal atrial fibrillation; K59.00 Constipation, unspecified; D50.9 Iron deficiency anemia, unspecified; F41.9 Anxiety disorder, unspecified; Z99.81 Dependence on supplemental oxygen; M79.7 Fibromyalgia; E78.5 Hyperlipidemia, unspecified; E03.9 Hypothyroidism, unspecified; N28.89 Other specified disorders of kidney and ureter; K74.60 Unspecified cirrhosis of liver; M54.5 Low back pain; E66.01 Morbid (severe) obesity due to excess calories; Z68.39 Body mass index [BMI] 39.0-39.9, adult; Z79.4 Long term (current) use of insulin; D69.6 Thrombocytopenia, unspecified; T45.1X5A Adverse effect of antineoplastic and immunosuppressive drugs, initial encounter; Z79.52 Long term (current) use of systemic steroids; Z79.899 Other long term (current) drug therapy; E11.9 Type 2 diabetes mellitus without complications; Z91.19 Patient's noncompliance with other medical treatment and regimen; G47.30 Sleep apnea, unspecified; F33.41 Major depressive disorder, recurrent, in partial remission; Z87.891 Personal history of nicotine dependence; Z96.659 Presence of unspecified artificial knee joint; M06.042 Rheumatoid arthritis without rheumatoid factor, left hand; M06.041 Rheumatoid arthritis without rheumatoid factor, right hand; M17.0 Bilateral primary osteoarthritis of knee
CPT/HCPCS: 12345; 36415; 36416; 36430; 71045; 71275; 80053; 80162; 81003; 82274; 82550; 82607; 82728; 82962; 83036; 83540; 83550; 83615; 83630; 83735; 83880; 84100; 84145; 84443; 84484; 85014; 85018; 85025; 85378; 85384; 86140; 86850; 86900; 86920; 87040; 87426; 87493; 87506; 87641; 93005; 94640; 96372; 96375; 99283; G0378; J1100; J1815; J2930; J3475; J3535; J8540; P9016; Q9967

== ENCOUNTER → 2020-08-31 11:03 | Outpatient (BNVA) | payer MEDICARE, SELFPAY | PROVIDERS: Absent Provider Anesthesiology; Family Provider Family Medicine; PCP Internal Medicine; Visit Provider Nurse Practitioner | DX: M17.0 Bilateral primary osteoarthritis of knee (principal); M06.041 Rheumatoid arthritis without rheumatoid factor, right hand; M06.042 Rheumatoid arthritis without rheumatoid factor, left hand; M54.5 Low back pain | CPT/HCPCS: 99213 ==

== ENCOUNTER 2020-10-08 06:24 | Inpatient (IN) | payer MEDICARE, SELFPAY ==
[2020-10-08] VITALS (17 sets, daily range): BP systolic 66–163; BP diastolic 48–124; PULSE 75–127; RESP 16–32; TEMP 36.5–36.8; O2SAT 90–99; BMI 40.3
--- NOTE | 2020-10-08 06:33 | XR_ITS ---
WS: [id number] Portable AP upright chest, 10/08/2020 Clinical Data: chest pain Comparison: Portable chest, 08/12/2020. Findings: No nodules, masses or effusions are seen. The heart is large. The pulmonary vascularity is not increased. No pneumonia or pneumothorax is seen. Monitor leads are on the chest wall. XR/XR chest 1V portable [id number] Impression: Cardiomegaly.
--- NOTE | 2020-10-08 06:34 | ECG_ITS ---
[facility] Test Date: 2020-10-08 Pat Name: Myesha Parker Department: Room: Gender: Female Certified Nurse Midwife: : 1950 Requested By: Juarez Julio Order Number: [id number] Wilbur MD: Keisha Coronel M.D. Measurements Intervals Pringle Rate: 96 P: SC: QRS: -48 QRSD: 149 T: -5 QT: 372 QTc: 472 Interpretive Statements ATRIAL FIBRILLATION RIGHT BUNDLE BRANCH BLOCK [120+ ms QRS DURATION, UPRIGHT V1, 40+ ms S IN I/aVL/V4/V5/V6] LEFT ANTERIOR FASCICULAR BLOCK [QRS AXIS <= -45, QR IN I, RS IN II] POSSIBLE SEPTAL MYOCARDIAL INFARCTION , PROBABLY OLD [30 ms Q WAVE IN V1/V2] Compared to ECG 08/07/2020 18:18:35 Myocardial infarct finding now present Sinus rhythm no longer present Left ventricular hypertrophy no longer present Electronically Signed On 10-09-2020 19:14:25 SENIOR BUSINESS ANALYST by Keisha Coronel M.D. [id number]
[2020-10-08 06:39] LABS: Glucose Point of Care 175 mg/dL (70-110)
[2020-10-08 06:42] LABS: Basophils # 0.1 10^3/uL (0.0-0.1); Basophils % 0.8 %; Eosinophils # 0.1 10^3/uL (0.0-0.8); Eosinophils % 0.9 %; Hematocrit 22.7 % (37.0-47.0); Lymphocytes # 1.2 10^3/uL (0.8-4.8); Lymphocytes % 16.3 %; Mean Corpuscular HGB Conc 30.8 g/dL (30.0-36.0); Mean Corpuscular Hemoglobin 30.8 pg (28.0-34.0); Mean Platelet Volume 9.8 fL (7.4-10.4); Monocytes # 0.8 10^3/uL (0.2-0.9); Monocytes % 10.4 %; Neutrophils # 5.25 10^3/uL (1.8-7.7); Neutrophils % 70.7 %; Nucleated Red Blood Cells # 0.1 /100WBC; Nucleated Red Blood Cells % 0.9 %; Platelet Count 206 10^3/cmm (130-400); Red Blood Count 2.27 10^6/uL (4.1-5.3); Red Cell Distribution Width 15.8 % (12.1-15.1); White Blood Count 7.4 10^3/uL (4.0-10.0)
--- NOTE | 2020-10-08 06:45 | ED_ITS ---
HPI - General Adult General: Chief complaint: General Medical Stated complaint: not feeling well and low bp Time Seen by Provider: 10/08/20 06:28 History of Present Illness: HPI narrative: Patient presents with generalized malaise and fatigue. States she has not been feeling well for over a week now. Initial blood pressure per EMS was normal however upon arrival to the ER she is hypotensive. She had some diarrhea 3 to 4 days ago but none recently. Has had nausea vomiting. States she has had some chills and shortness of breath and cough. Also complaining of chest pain. Associated symptoms: Reports chest pain, dyspnea, malaise and nausea Review of Systems Const: Reports: chills, body aches, fatigue and malaise Card: Reports: chest pain and irregular heart rhythm Resp: Reports: dyspnea and non-productive cough GI: Reports: nausea and diarrhea PFSH ED PFSH: Medical History Anxiety and depression CHF exacerbation Cholecystectomy planned COPD (chronic obstructive pulmonary disease) Oxygen dependent, 2 L at baseline Encounter for long-term (current) use of NSAIDs Encounter for long-term opiate analgesic use Fibromyalgia High risk medication use Hyperlipidemia Hypertension Hypothyroidism Immunization counseling Inflammatory arthritis Intermittent atrial fibrillation Because the patient history of frequent fall she was thought to be high risk for bleeding complications. So she is taking only the aspirin at this time. SHE HAS EASY BRUISING WELL Left renal mass Liver cirrhosis Low back pain of over 3 months duration Lung nodule Morbid obesity She has limited activity tolerance and exertional dyspnea, which affects her ability to exercise and participate in physical activities. Narrow complex tachycardia Opioid contract exists Osteoarthritis of knees, bilateral Polypharmacy Poorly controlled diabetes mellitus Recurrent UTI Seronegative rheumatoid arthritis of both hands Unstable angina Urgency incontinence UTI (urinary tract infection) Surgical History History of cardiac cath History of hysterectomy History of knee replacement History of thyroid surgery Family History Other CAD (coronary artery disease) Cancer Denies family history of Anesthesia complication Bleeding disorder Social History Smoking and tobacco status: former smoker Quit status (tobacco): has quit using tobacco Year quit tobacco: 2005 Second hand smoke exposure: No Alcohol intake: never Adopted: No Caregiver/support person: No Lives independently: No Household members: spouse Marital status: Current occupational status: retired History of recent travel: No Current gender identity: Female Physical Exam Const: COMMON NORMALS: no acute distress and patient oriented x3 EXAM LIMITATIONS: no altered mental status HENMT: COMMON NORMALS: normocephalic HEAD & SCALP: normal to inspection and normocephalic FACE & SINUS: normal facial exam Eye: COMMON NORMALS: Equal, round and reactive pupils present PUPIL: Yes Equal, round and reactive pupils present Neck/C-Spine: COMMON NORMALS: no JVD Chest: COMMONS NORMALS: normal inspection of the chest and normal palpation of entire chest wall Resp: COMMON NORMALS: normal respiratory effort, No retractions, No use of accessory muscles, clear to auscultation bilaterally and percussion normal AUSCULTATION: clear to auscultation bilaterally PERCUSSION: percussion normal Cardio: COMMON NORMALS: no JVD, regular rate, S1 normal heart sound present, S2 normal heart sound present, No gallops present (Cardio), No clicks present (Cardio), No murmurs present (Cardio), No rub (Cardio) and Peripheral pulses 2+ throughout RATE: regular rate RHYTHM: abnormal rhythm HEART SOUNDS: S1 normal heart sound present and S2 normal heart sound present PERIPHERAL PULSES: Peripheral pulses 2+ throughout GI: COMMON NORMALS: Normal to inspection, nondistended, normoactive bowel sounds present, Soft to palpation, non-tender, No hepatosplenomegaly present, no masses and no bruits PALPATION: Yes Soft to palpation and Yes No hepatosplenomegaly present Neuro: COMMON NORMALS: patient oriented x3 Course Vital Signs: Vital signs: Vital Signs Temperature 97.8 F 10/08/20 06:25 Pulse Rate 91 10/08/20 07:33 Respiratory Rate 30 H 10/08/20 07:33 Blood Pressure 112/66 10/08/20 07:33 Pulse Oximetry 94 10/08/20 07:33 MDM - General Adult 2 MDM Narrative: Medical decision making narrative: Patient has black stools that are Hemoccult positive. With the anemia and hypotension have to soon patient is with upper GI bleed. Started on Protonix. Discussed with Dr. Browne. Will admit to ICU as she did have a blood pressure with systolic in the 60s originally. Will discuss with GI. Lab Data: Labs: Lab Results 10/08/20 10/08/20 10/08/20 Range/Units 06:32 06:35 06:35 WBC 7.4 (4.0-10.0) 10^3/ uL RBC 2.27 L (4.1-5.3) 10^6/u L Hgb 7.0 L (11.5-15.3) g/dL Hct 22.7 L (37.0-47.0) % MCV 100.0 H (81-99) fL MCH 30.8 (28.0-34.0) pg MCHC 30.8 (30.0-36.0) g/dL RDW 15.8 H (12.1-15.1) % Plt Count 206 (130-400) 10^3/c mm MPV 9.8 (7.4-10.4) fL Neut % (Auto) 70.7 % Lymph % (Auto) 16.3 % [place] % (Auto) 10.4 % Eos % (Auto) 0.9 % Baso % (Auto) 0.8 % Neut # (Auto) 5.25 (1.8-7.7) 10^3/u L Lymph # (Auto) 1.2 (0.8-4.8) 10^3/u L [place] # (Auto) 0.8 (0.2-0.9) 10^3/u L Eos # (Auto) 0.1 (0.0-0.8) 10^3/u L Baso # (Auto) 0.1 (0.0-0.1) 10^3/u L Nucleated RBC % (a uto) 0.9 % Nucleated RBCs # 0.1 /100WBC Sodium 141 (136-145) mmol/L Potassium 3.7 (3.5-5.1) mmol/L Chloride 99 (98-107) mmol/L Carbon Dioxide 32 H (22-29) mmol/L Anion Gap 13.7 (5-19) BUN 17 (8-23) mg/dL Creatinine 0.9 (0.5-0.9) mg/dL GFR Calculation Not Reportable Glucose 160 H (65-115) mg/dL POC Glucose 175 H (70-110) mg/dL Calculated Osmolal ity 297 H (285-295) mOsm/k g Lactate (0.5-2.2) mmol/L Calcium 9.7 (8.5-10.5) mg/dL Total Bilirubin 0.3 (0.15-1.2) mg/dL AST 31 (0-32) U/L ALT 19 (0-33) U/L Alkaline Phosphata se 95 (35-105) IU/L Troponin T Baselin e (0-10) ng/L NT-Pro-B Natriuret Pep 1095 H (0-125) pg/mL Total Protein 5.6 L (6.6-8.7) g/dL Albumin 3.3 L (3.5-5.2) g/dL Globulin 2.3 (1.3-4.6) g/dL Urine Color (Yellow) Urine Appearance (CLEAR) Urine pH (5-7) Ur Specific Gravit y (1.005-1.030) Urine Protein (Negative) Urine Glucose (UA) (Normal) Urine Ketones (Negative) Urine Blood (Negative) Urine Nitrate (Negative) Urine Bilirubin (Negative) Urine Urobilinogen (Negative) mg/dL Ur Leukocyte Dorota ase (Negative) Urine RBC (0-2) /hpf Urine WBC (0-5) /hpf Ur Squamous Epith Cells (0-5) /hpf Ur Transition Epit h Cell /hpf Amorphous Sediment Urine Bacteria (NONE) /hpf Hyaline Casts /lpf Urine Mucus /hpf 10/08/20 10/08/20 10/08/20 Range/Units 06:35 06:35 06:55 WBC (4.0-10.0) 10^3/ uL RBC (4.1-5.3) 10^6/u L Hgb (11.5-15.3) g/dL Hct (37.0-47.0) % MCV (81-99) fL MCH (28.0-34.0) pg MCHC (30.0-36.0) g/dL RDW (12.1-15.1) % Plt Count (130-400) 10^3/c mm MPV (7.4-10.4) fL Neut % (Auto) % Lymph % (Auto) % [place] % (Auto) % Eos % (Auto) % Baso % (Auto) % Neut # (Auto) (1.8-7.7) 10^3/u L Lymph # (Auto) (0.8-4.8) 10^3/u L [place] # (Auto) (0.2-0.9) 10^3/u L Eos # (Auto) (0.0-0.8) 10^3/u L Baso # (Auto) (0.0-0.1) 10^3/u L Nucleated RBC % (a uto) % Nucleated RBCs # /100WBC Sodium (136-145) mmol/L Potassium (3.5-5.1) mmol/L Chloride (98-107) mmol/L Carbon Dioxide (22-29) mmol/L Anion Gap (5-19) BUN (8-23) mg/dL Creatinine (0.5-0.9) mg/dL GFR Calculation Glucose (65-115) mg/dL POC Glucose (70-110) mg/dL Calculated Osmolal ity (285-295) mOsm/k g Lactate 3.5 H (0.5-2.2) mmol/L Calcium (8.5-10.5) mg/dL Total Bilirubin (0.15-1.2) mg/dL AST (0-32) U/L ALT (0-33) U/L Alkaline Phosphata se (35-105) IU/L Troponin T Baselin e 34 H (0-10) ng/L NT-Pro-B Natriuret Pep (0-125) pg/mL Total Protein (6.6-8.7) g/dL Albumin (3.5-5.2) g/dL Globulin (1.3-4.6) g/dL Urine Color Yellow (Yellow) Urine Appearance Clear (CLEAR) Urine pH 5 (5-7) Ur Specific Gravit y 1.015 (1.005-1.030) Urine Protein 1+ H (Negative) Urine Glucose (UA) Norm (Normal) Urine Ketones Negative (Negative) Urine Blood Neg (Negative) Urine Nitrate Negative (Negative) Urine Bilirubin 1+ H (Negative) Urine Urobilinogen Norm (Negative) mg/dL Ur Leukocyte Dorota ase Negative (Negative) Urine RBC 0-4 H (0-2) /hpf Urine WBC None (0-5) /hpf Ur Squamous Epith Cells 5-10 H (0-5) /hpf Ur Transition Epit h Cell 0-4 /hpf Amorphous Sediment Not Reportable Urine Bacteria Trace (NONE) /hpf Hyaline Casts 25-40 H /lpf Urine Mucus 3+ /hpf Discharge Plan Discharge Patient Disposition: Admitted As Inpatient Clinical Impression: UGIB (upper gastrointestinal bleed) Condition: Stable Prescriptions: No Action garlic 1,000 mg capsule 1,000 mg PO DAILY@08 RF: 0 ferrous gluconate 324 mg (37.5 mg iron) tablet 324 mg PO DAILY@12 RF: 0 Novolin 70/30 U-100 Insulin 100 unit/mL (70-30) suspension See Rx Instructions .ROUTE .COMPLEX RF: 0 folic acid 800 mcg tablet 0.8 mg PO DAILY@12 RF: 0 furosemide [Lasix] 20 mg tablet 20 mg PO DAILY@08 RF: 0 tizanidine 4 mg tablet 4 mg PO TID PRN (Reason: muscle spasticity) Qty: 90 RF: 1 hydrocodone-acetaminophen 7.5-325 mg tablet 1 tab PO .TID at ,, PRN (Reason: pain) 30 Days Qty: 90 RF: 0 tramadol 50 mg tablet 100 mg PO TID@,, PRN (Reason: pain) Qty: 180 RF: 0 methotrexate sodium 2.5 mg tablet 7.5 mg PO Q7D Qty: 15 RF: 3 Hold Instructions: Resume on 09/02/20. until seen by rheumatology prednisone 2.5 mg tablet 2.5 mg PO DAILY Qty: 30 RF: 4 Hold Instructions: star after prednisone burst sulfasalazine 500 mg tablet 0.5 g PO BID@, Qty: 60 RF: 3 levothyroxine 175 mcg capsule 175 mcg PO DAILY@08 RF: 0 potassium chloride 20 mEq tablet extended release 20 meq PO BID@ RF: 0 atorvastatin [Lipitor] 40 mg Tablet 40 mg PO DAILY@23 RF: 0 pantothenic acid (vit B5) 500 mg Tablet 500 mg PO DAILY@08 RF: 0 chlorpheniramine maleate [ChlorTabs] 4 mg Tablet 4 mg PO TID@,, PRN (Reason: UNKNOWN) RF: 0 carica papaya [Papaya Enzyme] Tablet 4 tab PO PRN RF: 0 riboflavin (vitamin B2) [Vitamin B-2] 100 mg Tablet 100 mg PO DAILY@08 RF: 0 loperamide [Anti-Diarrheal (loperamide)] 2 mg Tablet 2 - 4 mg PO PRN PRN (Reason: Diarrhea) RF: 0 cyanocobalamin (vitamin B-12) [Vitamin B-12] 1,000 mcg Tablet 1,000 mcg PO DAILY@08 RF: 0 acetaminophen [Arthritis Pain Reliever] 650 mg Tablet Extended Release 650 mg PO PRN RF: 0 diphenhydramine HCl [Benadryl] 25 mg Capsule 25 mg PO PRN PRN (Reason: ALLERGIES) RF: 0 nitroglycerin [Nitrostat] 0.4 mg Tablet, Sublingual 0.4 mg SUBLINGUAL Q5M PRN (Reason: Chest Pain) RF: 0 docusate sodium [Stool Softener] 100 mg Capsule 200 mg PO BID@ PRN (Reason: Constipation) RF: 0 zinc 50 mg Tablet 50 mg PO DAILY@12 RF: 0 pyridoxine (vitamin B6) [Vitamin B-6] 100 mg Tablet 100 mg PO DAILY@08 RF: 0 vitamin E 400 unit Capsule 400 unit PO DAILY@08 RF: 0 loratadine 10 mg Tablet 20 mg PO DAILY@08 RF: 0 methylsulfonylmethane [MSM] 1,000 mg Tablet 1,000 mg PO BID@ RF: 0 magnesium L-lactate [Magtab] 84 mg tablet extended release 84 mg PO BID@ RF: 0 cholecalciferol (vitamin D3) [Vitamin D3] 25 mcg (1,000 unit) Tablet 1,000 unit PO DAILY@08 RF: 0 omega 8-rde-llb-fish oil [Ultra Topock-3] 500-1,000 mg Capsule 2 cap PO DAILY@23 RF: 0 Liver Aid 2 tab PO DAILY@08 RF: 0 cranberry 1 tab PO DAILY@08 RF: 0 black cohosh 40 mg Tablet 40 mg PO BID RF: 0 albuterol sulfate 90 mcg/actuation Hfa Aerosol Inhaler 2 puff INHALATION TID PRN (Reason: Shortness Of Breath) RF: 0 amlodipine 10 mg Tablet 10 mg PO DAILY@08 RF: 0 insulin lispro [Admelog U-100 Insulin lispro] 100 unit/mL Solution See Rx Instructions .ROUTE .COMPLEX RF: 0 metoprolol tartrate 100 mg tablet 100 mg PO Q12H RF: 0 Protonix 40 mg tablet,delayed release (DR/EC) 40 mg PO DAILY@08 RF: 0 buspirone 10 mg tablet 10 mg PO BID@,17 RF: 0 hydralazine 50 mg tablet 50 mg PO TID@,, RF: 0 Lanoxin 125 mcg (0.125 mg) tablet 125 mcg PO DAILY@08 RF: 0 Abilify 5 mg tablet 5 mg PO DAILY@08 RF: 0 Cymbalta 30 mg capsule,delayed release(DR/EC) 30 mg PO DAILY@08 RF: 0 Cymbalta 60 mg capsule,delayed release(DR/EC) 60 mg PO DAILY@08 RF: 0 Advair Diskus 250-50 mcg/dose Blister With Device 1 ea inhalation BID.RESPIRATORY Qty: 60 RF: 0 albuterol sulfate 90 mcg/actuation HFA aerosol inhaler 1 inh inhalation Q6H PRN (Reason: shortness of breath or wheezing) Qty: 18 RF: 0 Referrals: Ami Perez DO [Primary Care Provider] - Coding Level of Care Code ED Corporate Accountant for Chg Fwd Exam Comprehensive
[2020-10-08 07:03] LABS: Lactate (Lactic Acid level) 3.5 mmol/L (0.5-2.2)
[2020-10-08 07:06] LABS: Troponin(5th) Baseline 34 ng/L (0-10)
[2020-10-08] MEDS: sodium chloride 0.9% 1,000 ML 999 ML IV (07:07)
[2020-10-08 07:13] LABS: Alanine Aminotransferase 19 U/L (0-33); Albumin Level 3.3 g/dL (3.5-5.2); Alkaline Phosphatase 95 IU/L (35-105); Aspartate Amino Transferase 31 U/L (0-32); Blood Urea Nitrogen 17 mg/dL (8-23); Calcium 9.7 mg/dL (8.5-10.5); Carbon Dioxide 32 mmol/L (22-29); Chloride 99 mmol/L (98-107); Globulin 2.3 g/dL (1.3-4.6); Glucose 160 mg/dL (65-115); NT Pro B Type Natriuretic Pept 1095 pg/mL (0-125); Osmolality Calculated 297 mOsm/kg (285-295); Sodium 141 mmol/L (136-145); Total Bilirubin 0.3 mg/dL (0.15-1.2); Total Protein 5.6 g/dL (6.6-8.7)
[2020-10-08 07:14] LABS: Urine Appearance Clear (CLEAR); Urine Color Yellow (Yellow)
[2020-10-08 07:15] LABS: Add Urine Microscopic? YES; Bilirubin Urine 1+ (Negative); Blood Urine Neg (Negative); Glucose Urine UA Norm (Normal); Ketones Urine Negative (Negative); Leukocyte Esterase Urine Negative (Negative); Nitrate Urine Negative (Negative); Protein Urine 1+ (Negative); Specific Gravity, Urine 1.015 (1.005-1.030); Urobilinogen Urine Norm (Negative); pH Urine 5 (5-7)
[2020-10-08 07:17] LABS: Anion Gap 13.7 (5-19); Potassium 3.7 mmol/L (3.5-5.1)
[2020-10-08 07:20] LABS: Bacteria Urine TRACE /hpf; Hyaline Casts Urine 25-40 /lpf; Mucus Urine 3+ /hpf; RBC Urine 0-4 /hpf (0-2); Transitional Epi Cells Urine 0-4 /hpf
[2020-10-08 07:21] LABS: Add Urine Culture? No
[2020-10-08] MEDS: pantoprazole 40 mg SDV 80 MG IVP (07:30)
--- NOTE | 2020-10-08 07:40 | PC.NURSE ---
Medication Update Patient reports she was not taken her pantoprazole regularly as directed x2 weeks.
[2020-10-08 09:03] LABS: Troponin 5 2HR 27.57 ng/L (0-10)
[2020-10-08 09:06] LABS: Troponin 5 2HR Delta -6.43 ABS# (0-10)
--- NOTE | 2020-10-08 09:40 | PM.HP ---
Providers/Chief Complaint Primary Care Provider: Ami Perez DO Chief Complaint: not feeling well and low bp History of Present Illness Myesha Parker is a 70 year old female who presents to the emergency department with complaints of shortness of breath, and some chest discomfort. She reports she has been coughing and congested lately. She is also noted some dark stools over the at least the last 4 to 5 days. No bright red blood in stools. Denies any nosebleeds. Reports she is not on anticoagulation currently. She reports a past history of Covid in July. No fevers. In the emergency department she was noted to be hypotensive. She received some IV fluids, as well as some IV Protonix. Review of Systems General: Reports: 10 or more systems reviewed and unremarkable except in HPI and below Const: Denies: fever(s) or chills Eyes: Denies: change in vision ENMT: Denies: throat pain Card: Reports: chest pain Resp: Reports: dyspnea and non-productive cough GI: Reports: melena; Denies: abdominal pain, nausea, vomiting or hematochezia : Denies: flank pain Musc: Denies: neck pain Skin/Breast: Denies: rash Neuro: Denies: headache(s) Psych: Denies: anxiety Endo: Denies: polyuria [place]/Lymph: Denies: easy bruising All/Imm: Denies: urticaria Medications/Allergies Home Medications Medication Instructions Recorded Confirmed Last Taken Type levothyroxine 175 mcg capsule 175 mcg PO DAILY@ cap 09/09/19 10/08/20 08/07/20 History potassium chloride 20 mEq 20 meq PO BID@09/09/19 10/08/20 08/07/20 History tablet,extended release ferrous gluconate 324 mg (37.5 mg 324 mg PO DAILY@10/02/19 10/08/20 08/06/20 History iron) tablet garlic 1,000 mg capsule 1,000 mg PO DAILY@10/02/19 10/08/20 08/07/20 History Liver Aid 2 tab PO DAILY@10/12/19 10/08/20 08/07/20 History acetaminophen [Arthritis Pain 650 mg PO PRN 10/12/19 10/08/20 Unknown History Reliever] atorvastatin [Lipitor] 40 mg PO DAILY@10/12/19 10/08/20 08/06/20 History black cohosh 80 mg PO BID 10/12/19 10/08/20 03/20/20 History carica papaya [Papaya Enzyme] 4 tab PO PRN 10/12/19 10/08/20 03/20/20 09:00 History chlorpheniramine maleate 4 mg PO TID@,,10/12/19 10/08/20 08/07/20 History [ChlorTabs] cholecalciferol (vitamin D3) 2,000 unit PO DAILY@10/12/19 10/08/20 08/07/20 History [Vitamin D3] cranberry 1 tab PO DAILY@10/12/19 10/08/20 08/07/20 History diphenhydramine HCl [Benadryl] 25 mg PO TID@,, PRN 10/12/19 10/08/20 03/20/20 History docusate sodium [Stool Softener] 200 mg PO BID@10/12/19 10/08/20 08/07/20 History loperamide [Anti-Diarrheal 2 - 4 mg PO PRN PRN 10/12/19 10/08/20 03/20/20 History (loperamide)] loratadine 20 mg PO DAILY@10/12/19 10/08/20 08/07/20 History magnesium L-lactate [Magtab] 84 mg PO BID@10/12/19 10/08/20 08/06/20 History methylsulfonylmethane [MSM] 1,000 mg PO BID@10/12/19 10/08/20 08/07/20 History nitroglycerin [Nitrostat] 0.4 mg SUBLINGUAL Q5M PRN 10/12/19 10/08/20 Unknown History omega 4-wpy-waa-fish oil [Ultra 2 cap PO DAILY@10/12/19 10/08/20 08/06/20 History [place]-3] pantothenic acid (vit B5) 500 mg PO DAILY@10/12/19 10/08/20 08/07/20 History pyridoxine (vitamin B6) [Vitamin 100 mg PO DAILY@10/12/19 10/08/20 08/07/20 History B-6] riboflavin (vitamin B2) [Vitamin 100 mg PO DAILY@10/12/19 10/08/20 08/07/20 History B-2] vitamin E 400 unit PO DAILY@10/12/19 10/08/20 08/07/20 History zinc 50 mg PO DAILY@10/12/19 10/08/20 08/06/20 History amlodipine 10 mg PO DAILY@12/31/19 10/08/20 08/07/20 History insulin lispro [Admelog U-100 See Rx Instructions .ROUTE .COMPLEX 12/31/19 10/08/20 03/20/20 History Insulin lispro] furosemide 20 mg tablet 20 mg PO DAILY@04/13/20 10/08/20 08/07/20 History aripiprazole [Abilify] 5 mg PO DAILY@08/07/20 10/08/20 08/07/20 09:00 History buspirone 10 mg PO BID@,08/07/20 10/08/20 08/07/20 08:00 History duloxetine [Cymbalta] 30 mg PO DAILY@08/07/20 10/08/20 08/07/20 History duloxetine [Cymbalta] 60 mg PO DAILY@08/07/20 10/08/20 08/07/20 History hydralazine 50 mg PO TID@,,08/07/20 10/08/20 08/07/20 08:00 History metoprolol tartrate 100 mg PO Q12H 08/07/20 10/08/20 08/07/20 History pantoprazole [Protonix] 40 mg PO BID@,08/07/20 10/08/20 08/07/20 History albuterol sulfate 1 inh INHALATION Q6H PRN #18 g 08/12/20 10/08/20 Unknown Rx fluticasone propion-salmeterol 1 ea INHALATION BID.RESPIRATORY 08/12/20 10/08/20 Unknown Rx [Advair Diskus] #60 ea hydrocodone 7.5 mg-acetaminophen 1 tab PO .TID at ,, PRN 30 08/31/20 10/08/20 Unknown Rx 325 mg tablet Days #90 tab tizanidine 4 mg tablet 4 mg PO TID PRN #90 tab 08/31/20 10/08/20 Unknown Rx tramadol 50 mg tablet 100 mg PO TID@,, PRN #180 tab 08/31/20 10/08/20 Unknown Rx methotrexate sodium 2.5 mg tablet 7.5 mg PO Q7D #15 tab 09/28/20 10/08/20 10/02/20 Rx 4 tabs sulfasalazine 500 mg tablet 0.5 g PO BID@ #60 tab 09/28/20 10/08/20 Unknown Rx albuterol sulfate 2.5 mg INHALATION TID PRN 10/08/20 10/08/20 Unknown History aspirin 325 mg PO BEDTIME 10/08/20 10/08/20 Unknown History digoxin 125 mcg PO DAILY@08 10/08/20 10/08/20 Unknown History folic acid 1 mg PO DAILY@08 10/08/20 10/08/20 Unknown History hydrocodone-acetaminophen [[place]] 1 tab PO QID PRN 10/08/20 10/08/20 Unknown History hydrocortisone See Rx Instructions .ROUTE .COMPLEX 10/08/20 10/08/20 Unknown History insulin NPH and regular human See Rx Instructions .ROUTE .COMPLEX 10/08/20 10/08/20 Unknown History [Novolin 70/30 U-100 Insulin] ketoconazole See Rx Instructions .ROUTE .COMPLEX 10/08/20 10/08/20 Unknown History prednisone See Rx Instructions .ROUTE .COMPLEX 10/08/20 10/08/20 Unknown History Allergies Allergy/AdvReac Type Severity Reaction Status Date / Time adhesive tape Allergy rash Verified 10/08/20 06:33 cinnamon Allergy sinus Verified 10/08/20 06:33 codeine Allergy unknown Verified 10/08/20 06:33 cedar Allergy sinus Uncoded 10/08/20 06:33 pine Allergy sinus Uncoded 10/08/20 06:33 pork food Allergy ADR-Nausea Uncoded 10/08/20 06:33 PFSH Acute PFSH: Medical History (Updated 10/08/20 @ 09:52 by Bayron Browne MD) Anxiety and depression CHF exacerbation Cholecystectomy planned COPD (chronic obstructive pulmonary disease) Oxygen dependent, 2 L at baseline COVID-14 August 2020 Encounter for long-term (current) use of NSAIDs Encounter for long-term opiate analgesic use Fibromyalgia High risk medication use Hyperlipidemia Hypertension Hypothyroidism Immunization counseling Inflammatory arthritis Intermittent atrial fibrillation Because the patient history of frequent fall she was thought to be high risk for bleeding complications. So she is taking only the aspirin at this time. SHE HAS EASY BRUISING WELL Left renal mass Liver cirrhosis Low back pain of over 3 months duration Lung nodule Morbid obesity She has limited activity tolerance and exertional dyspnea, which affects her ability to exercise and participate in physical activities. Narrow complex tachycardia Opioid contract exists Osteoarthritis of knees, bilateral Polypharmacy Poorly controlled diabetes mellitus Recurrent UTI Seronegative rheumatoid arthritis of both hands Unstable angina Urgency incontinence UTI (urinary tract infection) Surgical History History of cardiac cath History of hysterectomy History of knee replacement History of thyroid surgery Family History Other CAD (coronary artery disease) Cancer Denies family history of Anesthesia complication Bleeding disorder Social History Smoking and tobacco status: former smoker Quit status (tobacco): has quit using tobacco Year quit tobacco: 2005 Second hand smoke exposure: No Alcohol intake: never Adopted: No Caregiver/support person: No Lives independently: No Household members: spouse Marital status: Current occupational status: retired History of recent travel: No Current gender identity: Female Vitals/I&O/Wt Last Vital Signs Temp 97.8 F 10/08/20 06:25 Pulse 91 10/08/20 07:33 Resp 30 H 10/08/20 07:33 BP 112/66 10/08/20 07:33 Pulse Ox 94 10/08/20 07:33 Weight last 48 hrs Weight 106.594 kg Physical Exam Narrative: EXAM NARRATIVE: General exam demonstrates a white female, conversant. Reports some constant chest discomfort when she moves coughs or presses on her chest HEENT: Left pupil reactive. Right pupil dilated and irregular without reaction. Oropharynx clear. Neck is supple obese nontender with no lymphadenopathy or thyromegaly Cardiovascular irregular, irregular with slight acceleration of rate. No murmur Lungs few bilateral expiratory wheezes, no crackles Abdomen is soft nontender with positive bowel sounds. No obvious organomegaly. Obese. was deferred Extremities trace edema bilaterally Skin no rash Neuro no obvious focal deficits. Data : 10/08/20 06:35 10/08/20 06:35 Micro: Microbiology 10/08/20 07:23 Blood Culture - Preliminary Blood SPECIMEN COLLECTED 10/08/20 06:48 Blood Culture - Preliminary Blood SPECIMEN COLLECTED Other data: EKG demonstrates atrial fibrillation, left axis deviation right bundle branch block and no acute changes. Lactic acid elevated at 3.5 Calcium 9.7 LFTs normal Troponin 34 with 120-minute troponin of 27 BNP 1000 Albumin 3.3 Urinalysis 0-4 reds and no whites Chest x-ray which I visualized demonstrates no infiltrate, cardiomegaly A&P Assessment and plan (1) UGIB (upper gastrointestinal bleed): Protonix 40 mg IV every 12 hours Serial hemoglobins Hold aspirin and all anticoagulation Status: Acute (2) Anemia: Transfuse 1 unit packed red blood cells in the emergency department Repeat hemoglobin in approximately 1 hour Acute blood loss anemia secondary to likely upper GI bleed. Dark stools have been noted lately. Status: Acute (3) Hypotension: Blood pressure now seems normal. Continue to follow closely Hold blood pressure medication for now with exception of metoprolol. Hopefully blood pressure will continue to tolerate this. Status: Acute (4) Elevated troponin: Type II elevation Status: Acute (5) COPD (chronic obstructive pulmonary disease): With exacerbation Solu-Medrol 40 mg IV every 12 hours DuoNeb every 4 hours Budesonide Status: Chronic Qualifiers: COPD type: unspecified COPD Qualified Code(s): J44.9 - Chronic obstructive pulmonary disease, unspecified (6) Intermittent atrial fibrillation: Check digoxin level Continue patient's digoxin Status: Acute Additional A&P Information Elevated lactate. No evidence of sepsis, or bowel ischemia on clinical exam. Diabetes mellitus. Sliding scale insulin. Morbid obesity History of CHF. Lasix 40 mg IV following first unit of blood, monitoring blood pressure closely Rheumatoid arthritis. Hold rheumatologic medications currently Hypertension. Hold blood pressure medicines initially secondary to hypotension on arrival to the ER Hyperlipidemia Hypothyroidism Multiple other medical problems as outlined in past medical history. Full code SCDs for DVT prophylaxis Attestations Medical Necessity Statement*: Will need greater than 2 midnight stay for evaluation and treatment of GI bleed, hypotension, COPD exacerbation Time Spent in Patient Care: Greater than 35 minutes Critical Care Time: Critical Care Time (min): 46 Other Attestations: The high probability of a clinically significant, sudden or life threatening deterioration of the patient's [pulmonary, hematologic, cardiovascular] system(s) required my full and direct attention, intervention and personal management. The critical care time is as shown. This time is in addition to time spent performing any reported procedures but includes the following: [x] Data and vital sign review and interpretation [x] Patient assessment, examination and intervention [x] Documentation [x] Medication orders and management Coding Level of Care Code Acute Director Of [facility] for [facility] Diagnoses UGIB (upper gastrointestinal bleed) K92.2 Anemia D64.9 Hypotension I95.9 Elevated troponin R77.8 COPD (chronic obstructive pulmonary disease) J44.9 COPD type: unspecified COPD Intermittent atrial fibrillation I48.0
--- NOTE | 2020-10-08 09:47 | PC.PHAR ---
PTS STATES HE TAKES CARE OF THE PTS MEDICATIONS-RX FILLED ON 09/20/20 FOR NOVOLIN 70/30 50U QAM AND 30U QPM-PTS STATES THE PT TAKES 55U QAM AND 35U QPM-PTS STATES HE ALTERNATES THE CHLORTABS AND BENADRYL-PTS STATES THE PT HAS BEEN TAKING NORCO 5/325MG FILLED ON 08/04/20 ONE TAB PO QID PRN-[facility] HAS RX ON HOLD FOR 7.5/325MG 1 TAB TID PRN WRITTEN ON 08/31/20-PTS STATES THE PT HAS A NEW RX HE HASNT FILLED FOR 5/325MG 1 1/2 TAB QID PRN BUT HAS ONLY BEEN GIVING THE ONE FULL TAB-PTS STATES HE IS STILL GIVING THE PT METHOTREXATE 2.5MG 4 TABS Q7D BUT RX WAS WRITTEN IN 09/28/20 FOR 3 TABS [id number] HE IS TRYING TO FINISH UP THE 4 TAB DOSE BEFORE GIVING THE CHANGE-PTS STATES HE IS GIVING THE PT PREDNISONE 2.5MG ALTERNATING 2 TAB ONE DAY AND THEN 1 TAB DAILY-RX WRITTEN IN 09/28/20 FOR 2.5MG DAILY-PTS STATES HE SOMETIMES WILL GIVE THE PT TIZANIDINE WRITTEN 1 TAB TID BUT WILL SOMETIMES GIVE THE PT 2 TABS AT BEDTIME INSTEAD OF ONE TAB AT HS
[2020-10-08] MEDS: sodium chloride 0.9% 100 mL Bag 50 ML IV (10:18)
[2020-10-08 10:37] LABS: Thyroid Stimulating Hormone 1.08 uIU/mL (0.27-4.20)
--- NOTE | 2020-10-08 11:50 | PC.NURSE ---
Pt off unit Patient transferred to GI lab for procedure
[2020-10-08] MEDS: FUROsemide 10 mg/mL SDV 4mL 40 MG IVP (11:53)
--- NOTE | 2020-10-08 12:20 | PM.CONSULT ---
Providers/Reason For Consult Consulting Physican/Specialty*: Dr. Browne Reason for Consult*: Melena, anemia Attending Physician: Bayron Browne MD Primary Care Provider: Ami Perez DO History of Present Illness History of Present Illness Myesha Parker is a 70 year old female who presented to the ER today with chest pain and shortness of breath. Patient states that she is noted some dark stools for the last 2 weeks. Denies any fresh blood per rectum. She states that she has a colonoscopy but she is not sure when she had her last one. No prior EGD. No known history peptic ulcer disease. Patient was initially hypotensive and responded well with IV fluids. Her hemoglobin was noted to be 7 Meds/Allergies Home Medications and Allergies Home Medications Medication Instructions Recorded Confirmed Last Taken Type levothyroxine 175 mcg capsule 175 mcg PO DAILY@09/09/19 10/08/20 08/07/20 History potassium chloride 20 mEq 20 meq PO BID@09/09/19 10/08/20 08/07/20 History tablet,extended release ferrous gluconate 324 mg (37.5 mg 324 mg PO DAILY@10/02/19 10/08/20 08/06/20 History iron) tablet garlic 1,000 mg capsule 1,000 mg PO DAILY@10/02/19 10/08/20 08/07/20 History Liver Aid 2 tab PO DAILY@10/12/19 10/08/20 08/07/20 History acetaminophen [Arthritis Pain 650 mg PO PRN 10/12/19 10/08/20 Unknown History Reliever] atorvastatin [Lipitor] 40 mg PO DAILY@10/12/19 10/08/20 08/06/20 History black cohosh 80 mg PO BID 10/12/19 10/08/20 03/20/20 History carica papaya [Papaya Enzyme] 4 tab PO PRN 10/12/19 10/08/20 03/20/20 09:00 History chlorpheniramine maleate 4 mg PO TID@,,10/12/19 10/08/20 08/07/20 History [ChlorTabs] cholecalciferol (vitamin D3) 2,000 unit PO DAILY@10/12/19 10/08/20 08/07/20 History [Vitamin D3] cranberry 1 tab PO DAILY@10/12/19 10/08/20 08/07/20 History diphenhydramine HCl [Benadryl] 25 mg PO TID@,, PRN 10/12/19 10/08/20 03/20/20 History docusate sodium [Stool Softener] 200 mg PO BID@10/12/19 10/08/20 08/07/20 History loperamide [Anti-Diarrheal 2 - 4 mg PO PRN PRN 10/12/19 10/08/20 03/20/20 History (loperamide)] loratadine 20 mg PO DAILY@10/12/19 10/08/20 08/07/20 History magnesium L-lactate [Magtab] 84 mg PO BID@10/12/19 10/08/20 08/06/20 History methylsulfonylmethane [MSM] 1,000 mg PO BID@10/12/19 10/08/20 08/07/20 History nitroglycerin [Nitrostat] 0.4 mg SUBLINGUAL Q5M PRN 10/12/19 10/08/20 Unknown History omega 5-vkq-xno-fish oil [Ultra 2 cap PO DAILY@10/12/19 10/08/20 08/06/20 History [place]-3] pantothenic acid (vit B5) 500 mg PO DAILY@10/12/19 10/08/20 08/07/20 History pyridoxine (vitamin B6) [Vitamin 100 mg PO DAILY@10/12/19 10/08/20 08/07/20 History B-6] riboflavin (vitamin B2) [Vitamin 100 mg PO DAILY@10/12/19 10/08/20 08/07/20 History B-2] vitamin E 400 unit PO DAILY@10/12/19 10/08/20 08/07/20 History zinc 50 mg PO DAILY@10/12/19 10/08/20 08/06/20 History amlodipine 10 mg PO DAILY@12/31/19 10/08/20 08/07/20 History insulin lispro [Admelog U-100 See Rx Instructions .ROUTE .COMPLEX 12/31/19 10/08/20 03/20/20 History Insulin lispro] furosemide 20 mg tablet 20 mg PO DAILY@08 04/13/20 10/08/20 08/07/20 History aripiprazole [Abilify] 5 mg PO DAILY@08/07/20 10/08/20 08/07/20 09:00 History buspirone 10 mg PO BID@,08/07/20 10/08/20 08/07/20 08:00 History duloxetine [Cymbalta] 30 mg PO DAILY@08/07/20 10/08/20 08/07/20 History duloxetine [Cymbalta] 60 mg PO DAILY@08/07/20 10/08/20 08/07/20 History hydralazine 50 mg PO TID@,,08/07/20 10/08/20 08/07/20 08:00 History metoprolol tartrate 100 mg PO Q12H 08/07/20 10/08/20 08/07/20 History pantoprazole [Protonix] 40 mg PO BID@,08/07/20 10/08/20 08/07/20 History albuterol sulfate 1 inh INHALATION Q6H PRN #18 g 08/12/20 10/08/20 Unknown Rx fluticasone propion-salmeterol 1 ea INHALATION BID.RESPIRATORY 08/12/20 10/08/20 Unknown Rx [Advair Diskus] #60 ea hydrocodone 7.5 mg-acetaminophen 1 tab PO .TID at ,, PRN 30 08/31/20 10/08/20 Unknown Rx 325 mg tablet Days #90 tab tizanidine 4 mg tablet 4 mg PO TID PRN #90 tab 08/31/20 10/08/20 Unknown Rx tramadol 50 mg tablet 100 mg PO TID@,, PRN #180 tab 08/31/20 10/08/20 Unknown Rx methotrexate sodium 2.5 mg tablet 7.5 mg PO Q7D #15 tab 09/28/20 10/08/20 10/02/20 Rx 4 tabs sulfasalazine 500 mg tablet 0.5 g PO BID@, #60 tab 09/28/20 10/08/20 Unknown Rx albuterol sulfate 2.5 mg INHALATION TID PRN 10/08/20 10/08/20 Unknown History aspirin 325 mg PO BEDTIME 10/08/20 10/08/20 Unknown History digoxin 125 mcg PO DAILY@08 10/08/20 10/08/20 Unknown History folic acid 1 mg PO DAILY@10/08/20 10/08/20 Unknown History hydrocodone-acetaminophen [[place]] 1 tab PO QID PRN 10/08/20 10/08/20 Unknown History hydrocortisone See Rx Instructions .ROUTE .COMPLEX 10/08/20 10/08/20 Unknown History insulin NPH and regular human See Rx Instructions .ROUTE .COMPLEX 10/08/20 10/08/20 Unknown History [Novolin 70/30 U-100 Insulin] ketoconazole See Rx Instructions .ROUTE .COMPLEX 10/08/20 10/08/20 Unknown History prednisone See Rx Instructions .ROUTE .COMPLEX 10/08/20 10/08/20 Unknown History Allergies Allergy/AdvReac Type Severity Reaction Status Date / Time adhesive tape Allergy rash Verified 10/08/20 06:33 cinnamon Allergy sinus Verified 10/08/20 06:33 codeine Allergy unknown Verified 10/08/20 06:33 cedar Allergy sinus Uncoded 10/08/20 06:33 pine Allergy sinus Uncoded 10/08/20 06:33 pork food Allergy ADR-Nausea Uncoded 10/08/20 06:33 Current Medications Current Medications Generic Name Dose Route Start Last Admin Trade Name Freq PRN Reason Stop Dose Admin Methylprednisolone Sodium Succinate 40 mg 10/08/20 10:30 10/08/20 11:53 Methylprednisolone Sod Succ 40 Mg/Ml Inj IVP 40 mg Q12H JOCE Administration PFSH Acute PFSH: Medical History Anxiety and depression CHF exacerbation COPD (chronic obstructive pulmonary disease) Oxygen dependent, 2 L at baseline COVID-14 August 2020 Fibromyalgia Hyperlipidemia Hypertension Hypothyroidism Inflammatory arthritis Intermittent atrial fibrillation Because the patient history of frequent fall she was thought to be high risk for bleeding complications. So she is taking only the aspirin at this time. SHE HAS EASY BRUISING WELL Left renal mass Liver cirrhosis Low back pain of over 3 months duration Lung nodule Narrow complex tachycardia Osteoarthritis of knees, bilateral Poorly controlled diabetes mellitus Recurrent UTI Seronegative rheumatoid arthritis of both hands Unstable angina Urgency incontinence UTI (urinary tract infection) Surgical History History of cardiac cath History of hysterectomy History of knee replacement History of thyroid surgery Family History Other CAD (coronary artery disease) Cancer Denies family history of Anesthesia complication Bleeding disorder Social History Smoking and tobacco status: former smoker Quit status (tobacco): has quit using tobacco Year quit tobacco: 2005 Second hand smoke exposure: No Alcohol intake: never Adopted: No Caregiver/support person: No Lives independently: No Household members: spouse Marital status: Current occupational status: retired History of recent travel: No Current gender identity: Female Vitals/I&O/Wt Last Vital Signs Temp 97.7 F 10/08/20 10:12 Pulse 88 10/08/20 11:42 Resp 19 H 10/08/20 11:42 BP 115/71 10/08/20 11:42 Pulse Ox 94 10/08/20 11:42 10/07/20 10/08/20 10/08/20 22:59 06:59 14:59 Intake Total 0 / 0 Balance 0 / 0 Weight last 48 hrs Weight 235 lb Physical Exam Narrative: EXAM NARRATIVE: HEENT: Normocephalic Eye: Sclera /conjunctiva normal Respiratory and chest: Bilateral clear breath sounds on auscultation Cardiovascular: Normal S1 and S2 heart sounds Abdomen: Soft to palpation, mild generalized tenderness Neurological: Oriented to place person and time Skin: Intact, no lesions appreciated on gross exam Data Micro: Micro: Microbiology 10/08/20 07:23 Blood Culture - Pr eliminary Blood SPECIMEN [facility] 10/08/20 06:48 Blood Culture - Pr eliminary Blood SPECIMEN [facility] A&P Assessment and plan (1) UGIB (upper gastrointestinal bleed): 70-year-old female with multiple comorbidities currently on aspirin no other anticoagulation who presents with melena and hemoglobin of 7 Start IV Protonix twice daily Plan for EGD under MAC Procedure, risks, benefits and alternatives have been discussed with the patient who wishes to proceed with surgery. Status: Acute Coding Level of Care Code Acute [facility] for [facility] Diagnoses UGIB (upper gastrointestinal bleed) K92.2
--- NOTE | 2020-10-08 12:28 | ANES.PREANE2 ---
Pre-Anesthetic Assessment Pre-Anesthetic Assessment: Height/Weight: Height 1.63 m Weight 106.594 kg Temp Pulse Resp BP Pulse Ox 97.7 F 88 19 H 115/71 94 10/08/20 10:12 10/08/20 11:42 10/08/20 11:42 10/08/20 11:42 10/08/20 11:42 Preop Diagnosis: Anemia Proposed Procedure: Operation Date: 10/08/20 14:15 Proposed Procedures p EGD(Not Applicable) - Mike Chopra MD Was Beta Isidro taken within 24 hours: N/A (unable to answer patient states she does not know.) Last intake: 10/08/20 0300 solid food and liquids. Social: Social History: No alcohol Comment: quit smoking in 2005 Exam: Pre-Anes Outpt Exam: alert and oriented x 3 Airway: Submandibular: WNL Cervical ROM: WNL Dentition: False Pulmonary: Pulmonary: Asthma, COPD, Cough and Sleep apnea CV/HEM: CV/HEM: Afib, Angina (Stable) (previous stress test negative.) and CHF : : Chronic renal Insufficiency Hepatic: Comments: reports a history but she is unsure. GI: GI: GERD Metabolic: Metabolic: DM and Morbid obesity Neuropsych: Neuropsych: Anxiety Anesthetic Plan: ASA status: 3E Anesthesia: Anesthesia Evaluation Risk of > 500 ml blood loss (7ml/kg in children): No Meds/Allergies Current Medications: Current Medications Generic Name Dose Route Start Last Admin Trade Name Freq PRN Reason Stop Dose Admin Methylprednisolone Sodium Succinate 40 mg 10/08/20 10:30 10/08/20 11:53 Methylprednisolo ne Sod Succ 40 Mg/ Ml Inj IVP 40 mg Q12H JOCE Administration PFSH Anesthesia PFSH: Medical History Anxiety and depression CHF exacerbation COPD (chronic obstructive pulmonary disease) Oxygen dependent, 2 L at baseline COVID-14 August 2020 Fibromyalgia Hyperlipidemia Hypertension Hypothyroidism Inflammatory arthritis Intermittent atrial fibrillation Because the patient history of frequent fall she was thought to be high risk for bleeding complications. So she is taking only the aspirin at this time. SHE HAS EASY BRUISING WELL Left renal mass Liver cirrhosis Low back pain of over 3 months duration Lung nodule Narrow complex tachycardia Osteoarthritis of knees, bilateral Poorly controlled diabetes mellitus Recurrent UTI Seronegative rheumatoid arthritis of both hands Unstable angina Urgency incontinence UTI (urinary tract infection) Surgical History History of cardiac cath History of hysterectomy History of knee replacement History of thyroid surgery Family History Other CAD (coronary artery disease) Cancer Denies family history of Anesthesia complication Bleeding disorder Social History Smoking and tobacco status: former smoker Quit status (tobacco): has quit using tobacco Year quit tobacco: 2005 Second hand smoke exposure: No Alcohol intake: never Adopted: No Caregiver/support person: No Lives independently: No Household members: spouse Marital status: Current occupational status: retired History of recent travel: No Current gender identity: Female Data Anesthesia CBC & Chem 7: 10/08/20 06:35 10/08/20 06:35 Other Labs: Laboratory Results - last 48 hr 10/08/20 10/08/20 10/08/20 06:32 06:35 06:35 WBC 7.4 RBC 2.27 L Hgb 7.0 L Hct 22.7 L MCV 100.0 H MCH 30.8 MCHC 30.8 RDW 15.8 H Plt Count 206 MPV 9.8 Neut % (Auto) 70.7 Lymph % (Auto) 16.3 [place] % (Auto) 10.4 Eos % (Auto) 0.9 Baso % (Auto) 0.8 Neut # (Auto) 5.25 Lymph # (Auto) 1.2 [place] # (Auto) 0.8 Eos # (Auto) 0.1 Baso # (Auto) 0.1 Nucleated RBC % (auto) 0.9 Nucleated RBCs # 0.1 Sodium 141 Potassium 3.7 Chloride 99 Carbon Dioxide 32 H Anion Gap 13.7 BUN 17 Creatinine 0.9 GFR Calculation Not Reportable Glucose 160 H POC Glucose 175 H Calculated Osmolality 297 H Lactate Calcium 9.7 Total Bilirubin 0.3 AST 31 ALT 19 Alkaline Phosphatase 95 Troponin T Baseline Troponin T 120 Minute Delta Troponin T NT-Pro-B Natriuret Pep 1095 H Total Protein 5.6 L Albumin 3.3 L Globulin 2.3 TSH Urine Color Urine Appearance Urine pH Ur Specific [place] Urine Protein Urine Glucose (UA) Urine Ketones Urine Blood Urine Nitrate Urine Bilirubin Urine Urobilinogen Ur Leukocyte Esterase Urine RBC Urine WBC Ur Squamous Epith Cells Ur Transition Epith Cell Amorphous Sediment Urine Bacteria Hyaline Casts Urine Mucus Blood Type Rho(D) Type Antibody Screen Crossmatch 10/08/20 10/08/20 10/08/20 06:35 06:35 06:55 WBC RBC Hgb Hct MCV MCH MCHC RDW Plt Count MPV Neut % (Auto) Lymph % (Auto) [place] % (Auto) Eos % (Auto) Baso % (Auto) Neut # (Auto) Lymph # (Auto) [place] # (Auto) Eos # (Auto) Baso # (Auto) Nucleated RBC % (auto) Nucleated RBCs # Sodium Potassium Chloride Carbon Dioxide Anion Gap BUN Creatinine GFR Calculation Glucose POC Glucose Calculated Osmolality Lactate 3.5 H Calcium Total Bilirubin AST ALT Alkaline Phosphatase Troponin T Baseline 34 H Troponin T 120 Minute Delta Troponin T NT-Pro-B Natriuret Pep Total Protein Albumin Globulin TSH Urine Color Yellow Urine Appearance Clear Urine pH 5 Ur Specific [place] 1.015 Urine Protein 1+ H Urine Glucose (UA) Norm Urine Ketones Negative Urine Blood Neg Urine Nitrate Negative Urine Bilirubin 1+ H Urine Urobilinogen Norm Ur Leukocyte Esterase Negative Urine RBC 0-4 H Urine WBC None Ur Squamous Epith Cells 5-10 H Ur Transition Epith Cell 0-4 Amorphous Sediment Not Reportable Urine Bacteria Trace Hyaline Casts 25-40 H Urine Mucus 3+ Blood Type Rho(D) Type Antibody Screen Crossmatch 10/08/20 10/08/20 10/08/20 07:23 08:28 08:28 WBC RBC Hgb Hct MCV MCH MCHC RDW Plt Count MPV Neut % (Auto) Lymph % (Auto) [place] % (Auto) Eos % (Auto) Baso % (Auto) Neut # (Auto) Lymph # (Auto) [place] # (Auto) Eos # (Auto) Baso # (Auto) Nucleated RBC % (auto) Nucleated RBCs # Sodium Potassium Chloride Carbon Dioxide Anion Gap BUN Creatinine GFR Calculation Glucose POC Glucose Calculated Osmolality Lactate Calcium Total Bilirubin AST ALT Alkaline Phosphatase Troponin T Baseline Troponin T 120 Minute 27.57 H Delta Troponin T -6.43 L NT-Pro-B Natriuret Pep Total Protein Albumin Globulin TSH 1.08 Urine Color Urine Appearance Urine pH Ur Specific [place] Urine Protein Urine Glucose (UA) Urine Ketones Urine Blood Urine Nitrate Urine Bilirubin Urine Urobilinogen Ur Leukocyte Esterase Urine RBC Urine WBC Ur Squamous Epith Cells Ur Transition Epith Cell Amorphous Sediment Urine Bacteria Hyaline Casts Urine Mucus Blood Type O Positive Rho(D) Type Positive Antibody Screen Negative Crossmatch See Detail Micro: Microbiology 10/08/20 07:23 Blood Culture - Preliminary Blood SPECIMEN COLLECTED 10/08/20 06:48 Blood Culture - Preliminary Blood SPECIMEN COLLECTED Cardiac Studies: No Data to Display
[2020-10-08] MEDS: sodium chloride 0.9% 1,000 ML 30 ML IV (12:30)
--- NOTE | 2020-10-08 14:09 | ANE.PACU2 ---
Inpatient post-anesthesia follow up: Airway intact: Yes Vital signs: Temperature 98.1 F Pulse Rate [Monito r] 97 Pulse Rate 75 Respiratory Rate 16 Blood Pressure [Ri ght Arm] 66/51 Blood Pressure 109/48 Pulse Oximetry 99 Oxygen Delivery Me thod Simple Mask Oxygen Flow Rate 8 Fraction of Inspir ed Oxygen Hydration adequate: Yes Nausea and vomiting: No Pain level: 1 Mental status: Baseline
[2020-10-08 15:06] LABS: Glucose Point of Care 177 mg/dL (70-110)
[2020-10-08 15:28] LABS: Hematocrit 26.1 % (37.0-47.0); Hemoglobin 8.1 g/dL (11.5-15.3)
[2020-10-08 16:08] LABS: Digoxin 0.7 ng/mL (0.6-1.2)
[2020-10-08 16:09] LABS: Troponin 5 6HR 24.25 ng/L (0-10)
[2020-10-08 17:00] LABS: Glucose Point of Care 206 mg/dL (70-110)
[2020-10-08] MEDS: BuSPIRONE 10 mg Tablet PO (17:03)
[2020-10-08] MEDS: pantoprazole 40 mg SDV IVP (17:04)
--- NOTE | 2020-10-08 17:26 | PC.RESP ---
PULMONARY REHAB INFORMATION SENT TO PATIENT.
[2020-10-08] MEDS: budesonide 0.5 mg/2 mL Neb INHALATION (20:27)
[2020-10-08] MEDS: ipratropium-albuterol 3 mL Neb INHALATION (20:27)
[2020-10-08 20:28] LABS: Glucose Point of Care 238 mg/dL (70-110)
[2020-10-08] MEDS: metoprolol tartrate 50 mg Tablet 100 MG PO (20:32)
[2020-10-08] MEDS: atorvastatin 40 mg Tablet PO (21:53)
--- NOTE | 2020-10-08 22:00 | XRR_ITS ---
PROCEDURE INFORMATION: Exam: XR Chest, 1 View Exam date and time: 10/08/2020 10:19 PM Age: 70 years old Clinical indication: Other: Low BP, weakness; Additional info: Complications TECHNIQUE: Imaging protocol: XR of the chest Views: 1 view. COMPARISON: CR XR chest 1V portable [id number] 10/08/2020 6:44 AM FINDINGS: Lungs: Unremarkable. No consolidation. Pleural spaces: Unremarkable. No pleural effusion. No pneumothorax. Heart/Mediastinum: The cardiac silhouette is enlarged but unchanged. Bones/joints: Unremarkable. XR/XR chest 1V portable [id number] IMPRESSION: Stable cardiomegaly.
[2020-10-09] VITALS (167 sets, daily range): BP systolic 133–166; BP diastolic 42–112; PULSE 62–100; RESP 13–35; TEMP 36.5–37.3; O2SAT 83–100
[2020-10-09 04:42] LABS: Basophils % 0.3 %; Eosinophils % 0.2 %; Hematocrit 25.1 % (37.0-47.0); Hemoglobin 7.8 g/dL (11.5-15.3); Lymphocytes # 0.5 10^3/uL (0.8-4.8); Lymphocytes % 7.5 %; Mean Corpuscular HGB Conc 31.1 g/dL (30.0-36.0); Mean Corpuscular Hemoglobin 30.4 pg (28.0-34.0); Mean Corpuscular Volume 97.7 fL (81-99); Mean Platelet Volume 9.8 fL (7.4-10.4); Monocytes # 0.2 10^3/uL (0.2-0.9); Neutrophils # 5.79 10^3/uL (1.8-7.7); Neutrophils % 88.2 %; Nucleated Red Blood Cells % 0 %; Platelet Count 217 10^3/cmm (130-400); Red Blood Count 2.57 10^6/uL (4.1-5.3); Red Cell Distribution Width 16.8 % (12.1-15.1); White Blood Count 6.6 10^3/uL (4.0-10.0)
[2020-10-09 05:07] LABS: Alanine Aminotransferase 17 U/L (0-33); Albumin Level 3.2 g/dL (3.5-5.2); Alkaline Phosphatase 77 IU/L (35-105); Anion Gap 13.7 (5-19); Aspartate Amino Transferase 22 U/L (0-32); Blood Urea Nitrogen 18 mg/dL (8-23); Carbon Dioxide 31 mmol/L (22-29); Chloride 99 mmol/L (98-107); Globulin 2.9 g/dL (1.3-4.6); Glucose 186 mg/dL (65-115); Osmolality Calculated 297 mOsm/kg (285-295); Potassium 3.7 mmol/L (3.5-5.1); Sodium 140 mmol/L (136-145); Total Bilirubin 0.4 mg/dL (0.15-1.2); Total Protein 6.1 g/dL (6.6-8.7)
--- NOTE | 2020-10-09 06:33 | PC.NURSE ---
Shift Summary: Patient slept well throughout shift. No c/o pain verbalized to RN. HR fluctated between ST and Afib. No fevers. SPO2 fluctuated in low to mid 90%. Pt able to ambulate to and from bedside commode without incident/decrease in SPO2 status. O2 remains at 3L via NC. No needs verbalized at this time. Report given to oncoming dayshift RN
--- NOTE | 2020-10-09 07:29 | PC.NURSE ---
Blood transfusion complete at time of arrival. Documented end time at this nurse's time of arrival. Previous shift RN states that blood was not transfusing during her shift. Pt stable, no c/o voiced.
[2020-10-09] MEDS: FUROsemide 20 mg Tablet PO (07:55)
[2020-10-09] MEDS: BuSPIRONE 10 mg Tablet PO ×2 (07:55→18:15)
[2020-10-09] MEDS: pantoprazole 40 mg SDV IVP (07:55)
[2020-10-09] MEDS: ARIPiprazole 10 mg Tablet 5 MG PO (07:56)
[2020-10-09] MEDS: duloxetine 60 mg Capsule PO (07:56)
[2020-10-09] MEDS: levothyroxine 88 mcg Tablet 176 MCG PO (07:58)
[2020-10-09] MEDS: digoxin 125 mcg Tablet PO (07:59)
[2020-10-09] MEDS: metoprolol tartrate 50 mg Tablet 100 MG PO ×2 (08:00→21:09)
[2020-10-09 08:20] LABS: Glucose Point of Care 170 mg/dL (70-110)
[2020-10-09] MEDS: ipratropium-albuterol 3 mL Neb INHALATION ×2 (09:06→20:17)
[2020-10-09] MEDS: budesonide 0.5 mg/2 mL Neb INHALATION ×2 (09:06→20:17)
--- NOTE | 2020-10-09 09:53 | PC.CHAP ---
Pastoral Care Encounter/Spiritual Assessment Type of Contact [] Declined networker visit [] Patient/Family/Request visit [] Outpatient visit [] Follow-up visit [] Physician referral [] Code/Alert [XX] Routine visit [] Staff referral [] Actively dying [XX] Patient sleeping [] Family support [] [] Out of room [] Palliative care [] [] Receiving care in room [] Pre-surgical visit [] Trauma [] Long length of stay [XX] ICU visit [] Other: Relational/Emotional Strength [] Patient feels connected with others/family/visitors/staff [] Distress [] Loneliness/isolation [] Abandonment Spirituality of Patient [] Person of Joelle [] Attends Pentecostalism of their Joelle [] Believes in Prayer [] Reads Bible or Cheondoism materials [] There are Spiritual issues to be addressed Lighting Fixtures Decorator Interventions [] Prayer [] Active listening [] Non-anxious presence [] Spiritual/emotional support [] Crisis/trauma care [] Spiritual counseling [] Bereavement support [] Provided bereavement packet [] Provided Bible/devotional materials [] Provided toy/stuffed animal, coloring book to patient or family member [] Provided Communion [] Anointing/[place] [] Salvation [] Completed spiritual assessment [] Other: Impact on Illness or Injury [] Angry [] Fearful [] Anxious [] Often cries [] Exhaustion [] Unable to work [] Unable to attend taoism [] Unable to walk/stand [] Unable to read [] Unable to drive [] Unable to eat/drink [] Unable to sleep [] Unable to be with family [] Patient intubated [] Other: Summary Time spent with patient
--- NOTE | 2020-10-09 11:19 | P.PN_ITS ---
Subjective Subjective: Interval history: Patient stable overnight, no evidence of active GI bleed Vitals/I&O/Wt Last Vital Signs Temp 97.8 F 10/09/20 08:10 Pulse 64 10/09/20 09:50 Resp 19 H 10/09/20 09:50 BP 166/112 10/09/20 09:50 Pulse Ox 97 10/09/20 09:50 10/08/20 10/09/20 10/09/20 22:59 06:59 14:59 Intake Total 100 / 300 50 / 50 Balance 100 / 300 50 / 50 Weight last 48 hrs Weight 235 lb 0.028 oz Weight 235 lb Data : 10/09/20 03:16 10/09/20 03:16 Micro: Microbiology 10/08/20 07:23 Blood Culture - Preliminary Blood NEGATIVE TO DATE 10/08/20 06:48 Blood Culture - Preliminary Blood NEGATIVE TO DATE A&P Assessment and plan (1) Anemia: Status post EGD and multiple inflamed polyps which were cauterized, no evidence of active GI bleed Hemoglobin up to 7.8 after transfusion of 1 unit PRBC Hold aspirin for 1 week Start clear liquid diet, advance as tolerated to GI soft diet Status: Acute Attestations Medical Necessity Statement*: GI bleed Coding Level of Care Code Acute Physical Security Engineer for paul Fwsaul Diagnoses Anemia D64.9
[2020-10-09 11:30] LABS: Glucose Point of Care 126 mg/dL (70-110)
--- NOTE | 2020-10-09 11:50 | P.PN_ITS ---
Subjective Subjective: Interval history: Patient underwent EGD yesterday which showed multiple inflamed polyps which were cauterized, no evidence of active GI bleed was noted. Hemoglobin this morning at 7.8, received 1 unit blood transfusion yesterday. Started on clear liquid diet with recommendations to advance as tolerated. Patient reports feeling hungry, wants to eat. No current complaints of abdominal pain. Has not had any more episodes of melena. Passing flatus Medications: Reviewed: Yes Vitals/I&O/Wt Last Vital Signs Temp 97.8 F 10/09/20 08:10 Pulse 64 10/09/20 09:50 Resp 19 H 10/09/20 09:50 BP 166/112 10/09/20 09:50 Pulse Ox 97 10/09/20 09:50 10/08/20 10/09/20 10/09/20 22:59 06:59 14:59 Intake Total 100 / 300 50 / 50 Balance 100 / 300 50 / 50 Weight last 48 hrs Weight 106.595 kg Weight 106.594 kg Physical Exam 2 Narrative: EXAM NARRATIVE: GEN: Awake, alert and oriented, no acute distress CVS: S1S2 N RS: CTA B/L Abd: Soft, nt/nd , bs+ CAR RENTAL CLERK: no focal neuro deficits Data : 10/09/20 03:16 10/09/20 03:16 Micro: Microbiology 10/08/20 07:23 Blood Culture - Preliminary Blood NEGATIVE TO DATE 10/08/20 06:48 Blood Culture - Preliminary Blood NEGATIVE TO DATE A&P Assessment and plan (1) UGIB (upper gastrointestinal bleed): Protonix 40 mg IV every 12 hours--> changed to p.o. Serial hemoglobins Hold aspirin and all anticoagulation for at least a week Status: Acute (2) Anemia: Transfuse 1 unit packed red blood cells in the emergency department Hemoglobin currently stable, recheck H&H at 6 PM and then again with a.m. labs. Transfusion threshold at 7 Status: Acute (3) Hypotension: This is now resolved. Patient tending to be hypertensive now with blood pressure in the range of 160/110. Resume amlodipine 10 mg from home medications in addition to continuing metoprolol 100 twice daily.. Status: Acute (4) Elevated troponin: Type II elevation Status: Acute (5) COPD (chronic obstructive pulmonary disease): With exacerbation Solu-Medrol 40 mg IV every 12 hours DuoNeb every 4 hours Budesonide Status: Chronic Qualifiers: COPD type: unspecified COPD Qualified Code(s): J44.9 - Chronic obstructive pulmonary disease, unspecified (6) Intermittent atrial fibrillation: Check digoxin level Continue patient's digoxin Status: Acute Additional A&P Information Elevated lactate. No evidence of sepsis, or bowel ischemia on clinical exam. Diabetes mellitus. Sliding scale insulin. Morbid obesity History of CHF. Currently euvolemic, continue home dose of Lasix 20 mg p.o. daily Rheumatoid arthritis. Hold rheumatologic medications currently Hypertension. Resume home medication including amlodipine, continue metoprolol Hyperlipidemia Hypothyroidism Multiple other medical problems as outlined in past medical history. Full code SCDs for DVT prophylaxis Transfer out of ICU Attestations Medical Necessity Statement*: Patient needs ongoing admission for close hemoglobin check, resume diet, monitor for any further bleeding. Coding Level of Care Code Acute Health Services Administrator for Chg Fwd Diagnoses UGIB (upper gastrointestinal bleed) K92.2 Anemia D64.9 Hypotension I95.9 Elevated troponin R77.8 COPD (chronic obstructive pulmonary disease) J44.9 COPD type: unspecified COPD Intermittent atrial fibrillation I48.0
[2020-10-09] MEDS: amlodipine 10 mg Tablet PO (12:09)
[2020-10-09 17:52] LABS: Glucose Point of Care 301 mg/dL (70-110)
[2020-10-09] MEDS: pantoprazole DR 40 mg Tablet PO (18:15)
[2020-10-09 20:06] LABS: Glucose Point of Care 224 mg/dL (70-110)
[2020-10-09 21:30] LABS: Hematocrit 26.5 % (37.0-47.0); Hemoglobin 8.2 g/dL (11.5-15.3)
[2020-10-10] VITALS (7 sets, daily range): BP systolic 110–153; BP diastolic 62–80; PULSE 79–106; RESP 17–20; TEMP 36.5–36.7; O2SAT 94–98
[2020-10-10] MEDS: atorvastatin 40 mg Tablet PO (00:53)
[2020-10-10] MEDS: acetaminophen 325 mg Tablet 650 MG PO ×2 (02:04→08:58)
[2020-10-10 05:58] LABS: Hematocrit 26.1 % (37.0-47.0); Hemoglobin 8.2 g/dL (11.5-15.3)
[2020-10-10 06:45] LABS: Glucose Point of Care 237 mg/dL (70-110)
[2020-10-10] MEDS: ipratropium-albuterol 3 mL Neb INHALATION (07:52)
[2020-10-10] MEDS: budesonide 0.5 mg/2 mL Neb INHALATION (07:52)
[2020-10-10] MEDS: digoxin 125 mcg Tablet PO (08:50)
[2020-10-10] MEDS: duloxetine 60 mg Capsule PO (08:50)
[2020-10-10] MEDS: ARIPiprazole 10 mg Tablet 5 MG PO (08:50)
[2020-10-10] MEDS: FUROsemide 20 mg Tablet PO (08:50)
[2020-10-10] MEDS: levothyroxine 88 mcg Tablet 176 MCG PO (08:50)
[2020-10-10] MEDS: amlodipine 10 mg Tablet PO (08:51)
[2020-10-10] MEDS: BuSPIRONE 10 mg Tablet PO (08:59)
[2020-10-10] MEDS: pantoprazole DR 40 mg Tablet PO (08:59)
[2020-10-10] MEDS: metoprolol tartrate 50 mg Tablet 100 MG PO (08:59)
[2020-10-10 11:55] LABS: Glucose Point of Care 208 mg/dL (70-110)
--- NOTE | 2020-10-10 12:15 | PC.NURSE ---
Patient discharged in the care of spouse. Discharge instructions given to patient all questions answered. Patient in stable condition. IV's removed.
--- NOTE | 2020-10-10 12:20 | P.DS_ITS ---
Discharge Providers Date of Admission: 10/08/20 07:44 Date of Discharge: October 10, 2020 Attending Provider at Admission: Bayron Browne MD Attending Provider at Discharge: Opal Marie MD Primary Care Provider: Ami Perez DO Diagnoses at Discharge Discharge Diagnosis (1) UGIB (upper gastrointestinal bleed): Status: Acute (2) Anemia: Status: Acute (3) Hypotension: Status: Acute (4) Elevated troponin: Status: Acute (5) COPD (chronic obstructive pulmonary disease): Status: Chronic Permanent problem details: Oxygen dependent, 2 L at baseline Qualifiers: COPD type: unspecified COPD Qualified Code(s): J44.9 - Chronic obstructive pulmonary disease, unspecified (6) Intermittent atrial fibrillation: Status: Acute Permanent problem details: Because the patient history of frequent fall she was thought to be high risk for bleeding complications. So she is taking only the aspirin at this time. SHE HAS EASY BRUISING WELL Reason for Visit Reason for Visit: not feeling well and low bp Hospital Course Hospital Course Myesha Parker is a 70 year old female who presents to the emergency department with complaints of shortness of breath, and some chest discomfort. She is also noted some dark stools over the at least the last 4 to 5 days. No bright red blood in stools. EKG demonstrates atrial fibrillation, left axis deviation right bundle branch block and no acute changes. troponin series without significant delta. She received 1 unit of packed red blood cells in the ER. She was hypotensive upon admission, improved with holding antihypertensives apart from metoprolol. Amlodipine was resumed on October 09, 2020. At the time of discharge her hydralazine has been reduced from 50 mg 3 times daily to 25 mg 3 times daily. She underwent endoscopy with Dr. Chopra on October 09, 2020, multiple inflamed polyps were noted which were cauterized. There was no evidence of active GI bleed. Hemoglobin remained stable at 8.2. She is being discharged today in stable condition. No further episodes of melena or hematemesis. She was tolerating a regular diet. Advised to hold aspirin over the next week and follow-up with primary care provider prior to resuming. Physical Exam Narrative: EXAM NARRATIVE: GEN: Awake, alert and oriented, no acute distress CVS: S1S2 N RS: CTA B/L Abd: Soft, nt/nd , bs+ CERTIFIED SURGICAL ASSISTANT: no focal neuro deficits Discharge Data Data Completed and Pending: Completed Studies During Hospitalization Category Date Time Status XR chest 1V teetee ble [id number] Stat Exams 10/08/20 22:00 Completed XR chest 1V teetee ble [id number] Urgent Exams 10/08/20 06:33 Completed Pending at discharge Category Date Time Status Blood Culture Sta t Lab 10/08/20 07:23 Results Labs from last 24 hours 10/10/20 10/10/20 10/10/20 11:26 06:37 05:05 Hgb 8.2 L Hct 26.1 L POC Glucose 208 H 237 H 10/09/20 10/09/20 10/09/20 21:12 20:03 17:48 Hgb 8.2 L Hct 26.5 L POC Glucose 224 H 301 H Procedures Performed: Upper GI endoscopy on October 09, 2020. Multiple fundic polyps were seen which appeared inflamed and were cauterized using hot biopsy forceps. There was an antral ulcer which was not actively bleeding and was cauterized with hot biopsy forceps. No abnormalities were seen in the duodenum. Vitals: Last Vital Signs Temp 98.1 F 10/10/20 11:50 Pulse 106 H 10/10/20 11:50 Resp 17 10/10/20 11:50 BP 153/77 10/10/20 11:50 Pulse Ox 97 10/10/20 11:50 Discharge Plan Discharge Patient Disposition: Home Condition: Stable Prescriptions: Continued garlic 1,000 mg capsule 1,000 mg PO DAILY@08 RF: 0 ferrous gluconate 324 mg (37.5 mg iron) tablet 324 mg PO DAILY@12 RF: 0 furosemide [Lasix] 20 mg tablet 20 mg PO DAILY@08 RF: 0 tizanidine 4 mg tablet 4 mg PO TID PRN (Reason: muscle spasticity) Qty: 90 RF: 1 hydrocodone-acetaminophen 7.5-325 mg tablet 1 tab PO .TID at ,, PRN (Reason: pain) 30 Days Qty: 90 RF: 0 tramadol 50 mg tablet 100 mg PO TID@08,17,23 PRN (Reason: pain) Qty: 180 RF: 0 methotrexate sodium 2.5 mg tablet 7.5 mg PO Q7D Qty: 15 RF: 3 Hold Instructions: Resume on 09/02/20. until seen by rheumatology sulfasalazine 500 mg tablet 0.5 g PO BID@ Qty: 60 RF: 3 levothyroxine 175 mcg capsule 175 mcg PO DAILY@ RF: 0 potassium chloride 20 mEq tablet extended release 20 meq PO BID@ RF: 0 atorvastatin [Lipitor] 40 mg Tablet 40 mg PO DAILY@ RF: 0 pantothenic acid (vit B5) 500 mg Tablet 500 mg PO DAILY@08 RF: 0 chlorpheniramine maleate [ChlorTabs] 4 mg Tablet 4 mg PO TID@,, RF: 0 carica papaya [Papaya Enzyme] Tablet 4 tab PO PRN RF: 0 riboflavin (vitamin B2) [Vitamin B-2] 100 mg Tablet 100 mg PO DAILY@ RF: 0 loperamide [Anti-Diarrheal (loperamide)] 2 mg Tablet 2 - 4 mg PO PRN PRN (Reason: Diarrhea) RF: 0 acetaminophen [Arthritis Pain Reliever] 650 mg Tablet Extended Release 650 mg PO PRN RF: 0 diphenhydramine HCl [Benadryl] 25 mg Capsule 25 mg PO TID@,, PRN (Reason: ALLERGIES) RF: 0 nitroglycerin [Nitrostat] 0.4 mg Tablet, Sublingual 0.4 mg SUBLINGUAL Q5M PRN (Reason: Chest Pain) RF: 0 docusate sodium [Stool Softener] 100 mg Capsule 200 mg PO BID@ RF: 0 zinc 50 mg Tablet 50 mg PO DAILY@12 RF: 0 pyridoxine (vitamin B6) [Vitamin B-6] 100 mg Tablet 100 mg PO DAILY@08 RF: 0 vitamin E 400 unit Capsule 400 unit PO DAILY@08 RF: 0 loratadine 10 mg Tablet 20 mg PO DAILY@08 RF: 0 methylsulfonylmethane [MSM] 1,000 mg Tablet 1,000 mg PO BID@ RF: 0 magnesium L-lactate [Magtab] 84 mg tablet extended release 84 mg PO BID@ RF: 0 cholecalciferol (vitamin D3) [Vitamin D3] 25 mcg (1,000 unit) Tablet 2,000 unit PO DAILY@08 RF: 0 omega 6-mhq-ovv-fish oil [Ultra Regan-3] 500-1,000 mg Capsule 2 cap PO DAILY@ RF: 0 Liver Aid 2 tab PO DAILY@08 RF: 0 cranberry 1 tab PO DAILY@08 RF: 0 black cohosh 40 mg Tablet 80 mg PO BID RF: 0 folic acid 1 mg tablet 1 mg PO DAILY@08 RF: 0 albuterol sulfate 2.5 mg /3 mL (0.083 %) Solution For Nebulization 2.5 mg inhalation TID PRN (Reason: Shortness Of Breath) RF: 0 Novolin 70/30 U-100 Insulin 100 unit/mL (70-30) suspension See Rx Instructions .ROUTE .COMPLEX RF: 0 hydrocortisone 2.5 % cream See Rx Instructions .ROUTE .COMPLEX RF: 0 digoxin 125 mcg (0.125 mg) tablet 125 mcg PO DAILY@08 RF: 0 ketoconazole 2 % cream See Rx Instructions .ROUTE .COMPLEX RF: 0 prednisone 2.5 mg tablet See Rx Instructions .ROUTE .COMPLEX RF: 0 Bend 5-325 mg Tablet 1 tab PO QID PRN (Reason: Pain) RF: 0 amlodipine 10 mg Tablet 10 mg PO DAILY@08 RF: 0 insulin lispro [Admelog U-100 Insulin lispro] 100 unit/mL Solution See Rx Instructions .ROUTE .COMPLEX RF: 0 metoprolol tartrate 100 mg tablet 100 mg PO Q12H RF: 0 pantoprazole [Protonix] 40 mg tablet,delayed release (DR/EC) 40 mg PO BID@,17 RF: 0 buspirone 10 mg tablet 10 mg PO BID@,17 RF: 0 aripiprazole [Abilify] 5 mg tablet 5 mg PO DAILY@08 RF: 0 duloxetine [Cymbalta] 30 mg capsule,delayed release(DR/EC) 30 mg PO DAILY@08 RF: 0 duloxetine [Cymbalta] 60 mg capsule,delayed release(DR/EC) 60 mg PO DAILY@08 RF: 0 fluticasone propion-salmeterol [Advair Diskus] 250-50 mcg/dose Blister With Device 1 ea inhalation BID.RESPIRATORY Qty: 60 RF: 0 albuterol sulfate 90 mcg/actuation HFA aerosol inhaler 1 inh inhalation Q6H PRN (Reason: shortness of breath or wheezing) Qty: 18 RF: 0 Changed hydralazine 50 mg tablet 25 mg PO TID@08,17,23 Qty: 0 RF: 0 Held aspirin 325 mg Tablet 325 mg PO BEDTIME RF: 0 Hold Instructions: Resume on 10/18/20. Discharge Orders: Discharge Order (Routine); Ordered 10/10/20 Ordered By: Opal Marie Referrals: Ami Perez DO [Primary Care Provider] - 7-10 days (Please call [facility] on Sunday to schedule a follow up appointment to be seen in 7-10 days.) Discharge Diet: Usual diet Discharge Activity: Resume usual activity Patient Instructions: Atrial Fibrillation (DC), Chronic Obstructive Pulmonary Disease (DC), Hypotension (DC), Anemia (DC), COPD Stoplight Discharge Attestations Time Spent in Discharge Care*: less than 30 min Status at Discharge: Cognitive status at discharge: cognitively intact , Behavioral status at discharge: cooperative , Quality Metrics Clinical Quality Measures During this hospital stay, did patient experience: None Coding Level of Care Code Acute Rotoformer Backtender for Sangg Fwd Diagnoses UGIB (upper gastrointestinal bleed) K92.2 Anemia D64.9 Hypotension I95.9 Elevated troponin R77.8 COPD (chronic obstructive pulmonary disease) J44.9 COPD type: unspecified COPD Intermittent atrial fibrillation I48.0
== END 2020-10-10 11:50 | disposition home or self-care (01) | DRG 378 ==
LOC: ER 09:10 → ICU 11:52 → MEDSURG 10-09 13:43
PROVIDERS: Surgery; Admitting Provider Internal Medicine; Emergency Provider Emergency Medicine; PCP Internal Medicine; Visit Provider Student in an Organized Health Care Education/Training Program
PROC: 0DJ08ZZ Inspection of Upper Intestinal Tract, Via Natural or Artificial Opening Endoscopic (ICD-10-PCS; CPT 43235; principal; 2020-10-08 14:15)
DX: K92.2 Gastrointestinal hemorrhage, unspecified (principal); J44.1 Chronic obstructive pulmonary disease with (acute) exacerbation; Z68.41 Body mass index [BMI] 40.0-44.9, adult; I95.9 Hypotension, unspecified; Z86.16 Personal history of COVID-19; F41.8 Other specified anxiety disorders; I11.0 Hypertensive heart disease with heart failure; I50.9 Heart failure, unspecified; Z79.1 Long term (current) use of non-steroidal anti-inflammatories (NSAID); Z79.891 Long term (current) use of opiate analgesic; M79.7 Fibromyalgia; E78.5 Hyperlipidemia, unspecified; E03.9 Hypothyroidism, unspecified; M19.90 Unspecified osteoarthritis, unspecified site; I48.91 Unspecified atrial fibrillation; N28.89 Other specified disorders of kidney and ureter; K74.60 Unspecified cirrhosis of liver; M54.5 Low back pain; E66.01 Morbid (severe) obesity due to excess calories; Z96.659 Presence of unspecified artificial knee joint; E11.9 Type 2 diabetes mellitus without complications; Z79.51 Long term (current) use of inhaled steroids; Z87.440 Personal history of urinary (tract) infections; K25.9 Gastric ulcer, unspecified as acute or chronic, without hemorrhage or perforation; K31.7 Polyp of stomach and duodenum; Z99.81 Dependence on supplemental oxygen; Z87.891 Personal history of nicotine dependence; M06.00 Rheumatoid arthritis without rheumatoid factor, unspecified site
CPT/HCPCS: 36415; 36416; 36430; 71045; 80053; 80162; 81001; 82962; 83605; 83880; 84443; 84484; 85014; 85018; 85025; 86850; 86900; 86920; 87040; 93005; 94640; 96361; 96372; 96374; 96375; 99285; C9113; J1815; J1940; J2704; J2920; J7030; J7626; P9016

== ENCOUNTER 2020-10-13 08:18 | Inpatient (IN) | payer MEDICARE, SELFPAY ==
[2020-10-13] VITALS (14 sets, daily range): BP systolic 89–162; BP diastolic 40–74; PULSE 59–79; RESP 17–24; TEMP 36.4–37.1; O2SAT 96–99; BMI 40.3
--- NOTE | 2020-10-13 08:23 | ECG_ITS ---
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 Measurements Intervals [place] Rate: 62 P: MS: QRS: -48 QRSD: 146 T: 52 QT: 450 QTc: 460 Interpretive Statements ATRIAL FIBRILLATION RIGHT BUNDLE BRANCH BLOCK [120+ ms QRS DURATION, UPRIGHT V1, 40+ ms S IN I/aVL/V4/V5/V6] LEFT ANTERIOR FASCICULAR BLOCK [QRS AXIS <= -45, QR IN I, RS IN II] MINIMAL VOLTAGE CRITERIA FOR LVH, CONSIDER NORMAL VARIANT [MEETS CRITERIA IN ONE OF: R(aVL), S(V1), R(V5), R(V5/V6)+S(V1)] POSSIBLE SEPTAL MYOCARDIAL INFARCTION , PROBABLY OLD [30 ms Q WAVE IN V1/V2] Compared to ECG 10/08/2020 06:37:01 No significant changes Electronically Signed On 10-14-2020 16:54:29 SOFTWARE LICENSING ANALYST by Victoriano White M.D. [email or web address]
--- NOTE | 2020-10-13 08:27 | CT_ITS ---
WS: [id number] CT ABDOMEN AND PELVIS WITH CONTRAST HISTORY: Generalized abdominal pain TECHNIQUE: Imaging performed of the abdomen and pelvis with IV contrast. Single phase imaging of the abdomen. Coronal and sagittal reformats are submitted. All CT scans at [facility] use at least one of these dose optimization techniques: automated exposure control; mA and/or kV adjustment per patient size (includes targeted exams where dose is matched to clinical indication); or iterativ e reconstruction. IV CONTRAST: Omnipaque 300; 95 mL IV. Oral contrast: No DLP: 1870.48 mGy.cm COMPARISON: 12/24/2019 Lower thorax: Small layering RIGHT pleural effusion with atelectasis. Moderate enlargement of the hea rt. No hiatal hernia. Liver/biliary system: Normal size liver. Surface of the liver is very irregular and nodular. There ar e a few granulomata and a few small cysts within the liver. No solid mass. Portal vein is normal. Gallbladder: Status post cholecystectomy. Pancreas: Normal. Spleen: Normal. Adrenal glands: Normal. Right kidney: Mild cortical thinning and a few small low-attenuation nodules within the kidney. Surfa ce of the kidney is irregular. No obstruction or mass. There are a few nonobstructing calcifications. Left kidney: Exophytic cyst measures 1.7 cm from the upper pole. There are adjacent small low-attenua tion lesions which are really too small to characterize. Aorta: Moderate atherosclerosis with no aneurysm. Lymphadenopathy: None. Free fluid: Small amount of fluid around the liver. GI tract: Very mild thickening of the gastric wall. No adjacent inflammation. No obstructive pattern throughout the GI tract. The appendix is not visualized. Abdominal wall: Small amount of soft tissue anasarca in the abdominal wall. Pelvis: Prior hysterectomy. No adenopathy or fluid. Bones: Mild S-shaped curvature lower thoracic and lumbar spines. Disc space narrowing and desiccation at L2-3 and L3-4. Mild hip joint arthritis. CT/CT abdomen pelvis w con* [id number] IMPRESSION: 1. Small RIGHT pleural effusion with RIGHT basilar atelectasis is new. 2. Small amount of perihepatic fluid is new. 3. Cirrhotic changes within the liver. 4. Mild diffuse wall thickening of the stomach is probably related to gastriti s. 5. Moderate atherosclerosis aorta. 6. No GI tract obstruction. 7. Subcutaneous edema in the RIGHT lateral abdominal wall. 8. Prior cholecystectomy and hysterectomy.
[2020-10-13] MEDS: iohexol 300 mg/mL 100 mL Btl IV (08:51)
--- NOTE | 2020-10-13 08:52 | ED_ITS ---
HPI - Syncope General: Chief Complaint: Syncope Stated Complaint: Faint episodes Time Seen by Provider: 10/13/20 08:22 History of Present Illness: HPI narrative: 70-year-old female presents to the emergency room with complaint of near syncopal episode while at rest at home. She was recently hospitalized for a upper GI bleed and was discharged 3 days ago. She was anemic. She received a transfusion hemoglobin got as low as 7. She is confused and disoriented she essentially answers yes to all questions including some nonsensical questions. She does seem to have some mild abdominal discomfort. She tells me she has both diarrhea and constipation as well as bloody diarrhea. complaint: almost passed out Onset (ago): minute(s) Prodromal symptoms: lightheaded and chest pain (for several weeks) Witnessed: Yes - by Bystander Context: at rest Injuries sustained associated with event: none Associated symptoms: Reports abdominal pain, chest pain, lightheadedness and weakness; Deny fever(s), headache(s), nausea, short of breath or vertigo History: previous syncopal episode, seizure disorder, history of CAD, pacemaker, AICD and family history of sudden Treatments prior to arrival: IV fluids Review of Systems Const: Denies: fever(s) ENMT: Denies: throat pain, ear or mastoid pain, nasal discharge or nasal congestion Card: Reports: chest pain and lightheadedness Resp: Denies: dyspnea, productive cough or non-productive cough GI: Reports: abdominal pain; Denies: nausea : Denies: flank pain, difficulty voiding, dysuria, urinary frequency or urinary urgency Skin/Breast: Denies: rash or pruritus Neuro: Denies: headache(s) or vertigo PFS ED PFSH: Medical History Anxiety and depression CHF exacerbation COPD (chronic obstructive pulmonary disease) Oxygen dependent, 2 L at baseline COVID-14 August 2020 Fibromyalgia Hyperlipidemia Hypertension Hypothyroidism Inflammatory arthritis Intermittent atrial fibrillation Because the patient history of frequent fall she was thought to be high risk for bleeding complications. So she is taking only the aspirin at this time. SHE HAS EASY BRUISING WELL Left renal mass Liver cirrhosis Low back pain of over 3 months duration Lung nodule Narrow complex tachycardia Osteoarthritis of knees, bilateral Poorly controlled diabetes mellitus Recurrent UTI Seronegative rheumatoid arthritis of both hands Unstable angina Urgency incontinence UTI (urinary tract infection) Surgical History History of cardiac cath History of cholecystectomy History of hysterectomy History of knee replacement History of thyroid surgery Family History Other CAD (coronary artery disease) Cancer Denies family history of Anesthesia complication Bleeding disorder Social History Smoking and tobacco status: former smoker Quit status (tobacco): has quit using tobacco Year quit tobacco: 2005 Second hand smoke exposure: No Alcohol intake: never Adopted: No Caregiver/support person: No Lives independently: No Household members: spouse Marital status: Current occupational status: retired History of recent travel: No Current gender identity: Female Physical Exam Const: COMMON NORMALS: no acute distress GENERAL APPEARANCE: cooperative and comfortable ORIENTATION/CONSCIOUSNESS: Yes oriented to person, Yes oriented to place and Yes oriented to time HENMT: COMMON NORMALS: normocephalic, atraumatic and hearing grossly normal bilaterally HEAD & SCALP: normocephalic and atraumatic Eye: COMMON NORMALS: Equal, round and reactive pupils present, EOMs intact bilaterally, conjunctivae normal and no scleral icterus CONJUNCTIVA: Yes conjunctivae normal PUPIL: Yes Equal, round and reactive pupils present Neck/C-Spine: COMMON NORMALS: full ROM, no lymphadenopathy, supple and no JVD Resp: COMMON NORMALS: normal respiratory effort, No retractions, No use of accessory muscles and clear to auscultation bilaterally AUSCULTATION: clear to auscultation bilaterally Cardio: COMMON NORMALS: no JVD, regular rate, regular rhythm and No murmurs present (Cardio) RATE: regular rate RHYTHM: regular rhythm GI: COMMON NORMALS: Soft to palpation and No hepatosplenomegaly present AUSCULTATION: Yes normoactive bowel sounds PALPATION: Yes Soft to palpation, No Tenderness to palpation present (GI), No Guarding due to palpation present (GI) and Yes No hepatosplenomegaly present Extremity: COMMON NORMALS: normal to inspection, capillary refill normal, no clubbing, cyanosis or edema, no calf tenderness and no pedal edema Neuro: SENSORIUM/ORIENTATION: Yes oriented to person, Yes oriented to place and Yes oriented to time Skin: COMMON NORMALS: no rashes or lesions noted GENERAL SKIN EXAM: no rashes or lesions noted Course Vital Signs: Vital signs: Vital Signs Temperature 98.1 F 10/14/20 15:26 Pulse Rate 116 H 10/14/20 15:32 Respiratory Rate 20 H 10/14/20 15:32 Blood Pressure 157/83 10/14/20 15:26 Pulse Oximetry 96 10/14/20 15:32 MDM - Syncope MDM Narrative: Medical decision making narrative: Hemoglobin decreased. Discussed with hospitalist will admit and monitor. Repeat labs. Lab Data: Labs: Lab Results 10/13/20 10/13/20 10/13/20 Range/Units 08:40 08:40 08:40 WBC 6.1 (4.0-10.0) 10^3/ uL RBC 2.44 L (4.1-5.3) 10^6/u L Hgb 7.4 L (11.5-15.3) g/dL Hct 24.6 L (37.0-47.0) % MCV 100.8 H (81-99) fL MCH 30.3 (28.0-34.0) pg MCHC 30.1 (30.0-36.0) g/dL RDW 15.2 H (12.1-15.1) % Plt Count 183 (130-400) 10^3/c mm MPV 9.7 (7.4-10.4) fL Neut % (Auto) 73.7 % Lymph % (Auto) 15.0 % [place] % (Auto) 8.5 % Eos % (Auto) 1.5 % Baso % (Auto) 1.0 % Neut # (Auto) 4.53 (1.8-7.7) 10^3/u L Lymph # (Auto) 0.9 (0.8-4.8) 10^3/u L [place] # (Auto) 0.5 (0.2-0.9) 10^3/u L Eos # (Auto) 0.1 (0.0-0.8) 10^3/u L Baso # (Auto) 0.1 (0.0-0.1) 10^3/u L Nucleated RBC % (a uto) 0 % Nucleated RBCs # 0.0 /100WBC Sodium 139 (136-145) mmol/L Potassium 4.2 (3.5-5.1) mmol/L Chloride 100 (98-107) mmol/L Carbon Dioxide 33 H (22-29) mmol/L Anion Gap 10.2 (5-19) BUN 22 (8-23) mg/dL Creatinine 0.8 (0.5-0.9) mg/dL GFR Calculation Not Reportable Glucose 283 H (65-115) mg/dL Calculated Osmolal ity 302 H (285-295) mOsm/k g Calcium 8.3 L (8.5-10.5) mg/dL Total Bilirubin 0.2 (0.15-1.2) mg/dL AST 37 H (0-32) U/L ALT 29 (0-33) U/L Alkaline Phosphata se 120 H (35-105) IU/L Troponin T Baselin e 33 H (0-10) ng/L Troponin T 120 Min little shell tribe (0-10) ng/L Delta Troponin T (0-10) ABS# Total Protein 5.1 L (6.6-8.7) g/dL Albumin 2.9 L (3.5-5.2) g/dL Globulin 2.2 (1.3-4.6) g/dL Procalcitonin (0-0.5) ng/mL TSH (0.27-4.20) uIU/ mL Urine Color (Yellow) Urine Appearance (CLEAR) Urine pH (5-7) Ur Specific Gravit y (1.005-1.030) Urine Protein (Negative) Urine Glucose (UA) (Normal) Urine Ketones (Negative) Urine Blood (Negative) Urine Nitrate (Negative) Urine Bilirubin (Negative) Urine Urobilinogen (Negative) mg/dL Ur Leukocyte Dorota ase (Negative) Digoxin (0.6-1.2) ng/mL Blood Type Rho(D) Type Antibody Screen Crossmatch 10/13/20 10/13/20 10/13/20 Range/Units 08:40 08:40 09:10 WBC (4.0-10.0) 10^3/ uL RBC (4.1-5.3) 10^6/u L Hgb (11.5-15.3) g/dL Hct (37.0-47.0) % MCV (81-99) fL MCH (28.0-34.0) pg MCHC (30.0-36.0) g/dL RDW (12.1-15.1) % Plt Count (130-400) 10^3/c mm MPV (7.4-10.4) fL Neut % (Auto) % Lymph % (Auto) % [place] % (Auto) % Eos % (Auto) % Baso % (Auto) % Neut # (Auto) (1.8-7.7) 10^3/u L Lymph # (Auto) (0.8-4.8) 10^3/u L [place] # (Auto) (0.2-0.9) 10^3/u L Eos # (Auto) (0.0-0.8) 10^3/u L Baso # (Auto) (0.0-0.1) 10^3/u L Nucleated RBC % (a uto) % Nucleated RBCs # /100WBC Sodium (136-145) mmol/L Potassium (3.5-5.1) mmol/L Chloride (98-107) mmol/L Carbon Dioxide (22-29) mmol/L Anion Gap (5-19) BUN (8-23) mg/dL Creatinine (0.5-0.9) mg/dL GFR Calculation Glucose (65-115) mg/dL Calculated Osmolal ity (285-295) mOsm/k g Calcium (8.5-10.5) mg/dL Total Bilirubin (0.15-1.2) mg/dL AST (0-32) U/L ALT (0-33) U/L Alkaline Phosphata se (35-105) IU/L Troponin T Baselin e (0-10) ng/L Troponin T 120 Min little shell tribe 27.40 H (0-10) ng/L Delta Troponin T -5.60 L (0-10) ABS# Total Protein (6.6-8.7) g/dL Albumin (3.5-5.2) g/dL Globulin (1.3-4.6) g/dL Procalcitonin 0.10 (0-0.5) ng/mL TSH 0.79 (0.27-4.20) uIU/ mL Urine Color (Yellow) Urine Appearance (CLEAR) Urine pH (5-7) Ur Specific Gravit y (1.005-1.030) Urine Protein (Negative) Urine Glucose (UA) (Normal) Urine Ketones (Negative) Urine Blood (Negative) Urine Nitrate (Negative) Urine Bilirubin (Negative) Urine Urobilinogen (Negative) mg/dL Ur Leukocyte Dorota ase (Negative) Digoxin 1.6 H (0.6-1.2) ng/mL Blood Type Rho(D) Type Antibody Screen Crossmatch 10/13/20 10/13/20 Range/Units 10:05 10:17 WBC (4.0-10.0) 10^3/ uL RBC (4.1-5.3) 10^6/u L Hgb (11.5-15.3) g/dL Hct (37.0-47.0) % MCV (81-99) fL MCH (28.0-34.0) pg MCHC (30.0-36.0) g/dL RDW (12.1-15.1) % Plt Count (130-400) 10^3/c mm MPV (7.4-10.4) fL Neut % (Auto) % Lymph % (Auto) % [place] % (Auto) % Eos % (Auto) % Baso % (Auto) % Neut # (Auto) (1.8-7.7) 10^3/u L Lymph # (Auto) (0.8-4.8) 10^3/u L [place] # (Auto) (0.2-0.9) 10^3/u L Eos # (Auto) (0.0-0.8) 10^3/u L Baso # (Auto) (0.0-0.1) 10^3/u L Nucleated RBC % (a uto) % Nucleated RBCs # /100WBC Sodium (136-145) mmol/L Potassium (3.5-5.1) mmol/L Chloride (98-107) mmol/L Carbon Dioxide (22-29) mmol/L Anion Gap (5-19) BUN (8-23) mg/dL Creatinine (0.5-0.9) mg/dL GFR Calculation Glucose (65-115) mg/dL Calculated Osmolal ity (285-295) mOsm/k g Calcium (8.5-10.5) mg/dL Total Bilirubin (0.15-1.2) mg/dL AST (0-32) U/L ALT (0-33) U/L Alkaline Phosphata se (35-105) IU/L Troponin T Baselin e (0-10) ng/L Troponin T 120 Min [place] shell tribe (0-10) ng/L Delta Troponin T (0-10) ABS# Total Protein (6.6-8.7) g/dL Albumin (3.5-5.2) g/dL Globulin (1.3-4.6) g/dL Procalcitonin (0-0.5) ng/mL TSH (0.27-4.20) uIU/ mL Urine Color Yellow (Yellow) Urine Appearance Clear (CLEAR) Urine pH 6 (5-7) Ur Specific Gravit y 1.010 (1.005-1.030) Urine Protein Neg (Negative) Urine Glucose (UA) Norm (Normal) Urine Ketones Negative (Negative) Urine Blood Neg (Negative) Urine Nitrate Negative (Negative) Urine Bilirubin Neg (Negative) Urine Urobilinogen Norm (Negative) mg/dL Ur Leukocyte Dorota ase Negative (Negative) Digoxin (0.6-1.2) ng/mL Blood Type O Positive Rho(D) Type Positive Antibody Screen Negative Crossmatch See Detail Discharge Plan Discharge Patient Disposition: Admitted As Inpatient Admit Provider: Bayron Browne Clinical Impression: Anemia, UGIB (upper gastrointestinal bleed), Hypotension, Heart failure with preserved ejection fraction, COPD (chronic obstructive pulmonary disease), Morbid obesity Condition: Stable Coding Level of Care Code ED Telegraph Service Clerk for Dougie Fwd Exam Comprehensive
[2020-10-13 08:59] LABS: Basophils # 0.1 10^3/uL (0.0-0.1); Eosinophils # 0.1 10^3/uL (0.0-0.8); Eosinophils % 1.5 %; Hematocrit 24.6 % (37.0-47.0); Hemoglobin 7.4 g/dL (11.5-15.3); Lymphocytes # 0.9 10^3/uL (0.8-4.8); Mean Corpuscular HGB Conc 30.1 g/dL (30.0-36.0); Mean Corpuscular Hemoglobin 30.3 pg (28.0-34.0); Mean Corpuscular Volume 100.8 fL (81-99); Mean Platelet Volume 9.7 fL (7.4-10.4); Monocytes # 0.5 10^3/uL (0.2-0.9); Monocytes % 8.5 %; Neutrophils # 4.53 10^3/uL (1.8-7.7); Neutrophils % 73.7 %; Nucleated Red Blood Cells % 0 %; Platelet Count 183 10^3/cmm (130-400); Red Blood Count 2.44 10^6/uL (4.1-5.3); Red Cell Distribution Width 15.2 % (12.1-15.1); White Blood Count 6.1 10^3/uL (4.0-10.0)
[2020-10-13] MEDS: sodium chloride 0.9% 1,000 ML 999 ML IV (09:06)
[2020-10-13 09:08] LABS: Alanine Aminotransferase 29 U/L (0-33); Albumin Level 2.9 g/dL (3.5-5.2); Alkaline Phosphatase 120 IU/L (35-105); Anion Gap 10.2 (5-19); Aspartate Amino Transferase 37 U/L (0-32); Blood Urea Nitrogen 22 mg/dL (8-23); Calcium 8.3 mg/dL (8.5-10.5); Carbon Dioxide 33 mmol/L (22-29); Chloride 100 mmol/L (98-107); Globulin 2.2 g/dL (1.3-4.6); Glucose 283 mg/dL (65-115); Osmolality Calculated 302 mOsm/kg (285-295); Potassium 4.2 mmol/L (3.5-5.1); Sodium 139 mmol/L (136-145); Total Bilirubin 0.2 mg/dL (0.15-1.2); Total Protein 5.1 g/dL (6.6-8.7)
[2020-10-13 09:09] LABS: Troponin(5th) Baseline 33 ng/L (0-10)
--- NOTE | 2020-10-13 09:10 | XR_ITS ---
WS: [id number] PORTABLE CHEST HISTORY: dyspnea/cough/pleural effusion COMPARISON: 10/08/2020 Mild diffuse interstitial edema. Partial obscuration of the RIGHT diaphragm consistent with a small e ffusion. No pneumothorax. Cardiac size: Mildly enlarged cardiac silhouette. Mediastinum/Aorta: Mild atherosclerosis aorta. No osseous abnormality seen. XR/XR chest 1V portable [id number] IMPRESSION: 1. Mild interstitial edema and CHF. 2. Small RIGHT pleural effusion.
[2020-10-13] MEDS: famotidine 20 mg/2 mL INJ IVP (10:09)
--- NOTE | 2020-10-13 10:23 | ECG_ITS ---
[facility] Test Date: 2020-10-13 Pat Name: Myesha Parker Department: Room: Gender: Female Towel Folder: : 1950 Requested By: Kenrick Al Order Number: [id number] Wilbur MD: Victoriano White M.D. Measurements Intervals [place] Rate: 60 P: 0 PA: 202 QRS: -40 QRSD: 150 T: 15 QT: 463 QTc: 465 Interpretive Statements SINUS RHYTHM LEFT AXIS DEVIATION [QRS AXIS < -30] RIGHT BUNDLE BRANCH BLOCK [120+ ms QRS DURATION, UPRIGHT V1, 40+ ms S IN I/aVL/V4/V5/V6] PROBABLE SEPTAL MYOCARDIAL INFARCTION , PROBABLY OLD [35 ms Q WAVE IN V1/V2] Compared to ECG 10/13/2020 08:21:34 Left-axis deviation now present Atrial fibrillation no longer present Left anterior fascicular block no longer present Myocardial infarct finding still present Electronically Signed On 10-14-2020 16:44:54 SUGAR TRUCKER by Victoriano White M.D. [email or web address]
[2020-10-13 10:24] LABS: Add Urine Microscopic? NO
[2020-10-13 10:49] LABS: Bilirubin Urine Neg (Negative); Blood Urine Neg (Negative); Glucose Urine UA Norm (Normal); Ketones Urine Negative (Negative); Leukocyte Esterase Urine Negative (Negative); Nitrate Urine Negative (Negative); Protein Urine Neg (Negative); Urine Appearance Clear (CLEAR); Urine Color Yellow (Yellow); Urobilinogen Urine Norm (Negative); pH Urine 6 (5-7)
--- NOTE | 2020-10-13 11:24 | USCV_ITS ---
Myesha Parker Age: 70 Gender: F : 1950 Exam Date: 10/13/2020 11:29 Ordering Phys: Kenrick Treviño DO Technologist: Carl Crouch Exam Location: [facility] [place] Indication: CHEST PAIN BP: 90 / 60 HR: 62 Rhythm: Sinus Technical Quality: Fair MEASUREMENTS (Male / Female) Normal Values 2D ECHO LV Diastolic Diameter PLAX 3.9 cm 4.2 - 5.9 / 3.9 - 5.3 cm LV Systolic Diameter PLAX 2.4 cm IVS Diastolic Thickness 1.3 cm 0.6 - 1.0 / 0.6 - 0.9 cm IVS Systolic Thickness 1.3 cm LVPW Diastolic Thickness 1.6 cm 0.6 - 1.0 / 0.6 - 0.9 cm LVPW Systolic Thickness 1.9 cm LVOT Diameter 2.1 cm LV Ejection Fraction 2D Teich 70.7 % LV Ejection Fraction MOD 2C 77.7 % LV Ejection Fraction 2C AL 79.1 % LA Diameter 3.7 cm LA Width 4.2 cm LA Height 5.1 cm RA Width 4.2 cm RA Height 4.8 cm Aorta at Sinotubular Diameter 2.7 cm M-MODE LV Diastolic Diameter MM 4.3 cm 4.2 - 5.9 / 3.9 - 5.3 cm LV Systolic Diameter MM 2.5 cm LV Ejection Fraction MM Teich 73.9 % IVS Diastolic Thickness MM 1.8 cm 0.6 - 1.0 / 0.6 - 0.9 cm IVS Systolic Thickness MM 1.8 cm LVPW Diastolic Thickness MM 1.7 cm 0.6 - 1.0 / 0.6 - 0.9 cm LVPW Systolic Thickness MM 2.3 cm RV Diastolic Diameter MM 1.3 cm Aortic Annulus Diameter 3.5 cm LA Ao Ratio MM 1.0 MV E Point Septal Separation 0.9 cm DOPPLER AV Peak Velocity 223.0 cm/s LVOT Peak Velocity 116.0 cm/s AV Area Cont Eq vti 1.5 cm squared AV Area Cont Eq pk 1.8 cm squared MV Area PHT 5.0 cm squared Mitral E to A Ratio 1.1 MV E' Velocity 70.0 cm/s Mitral E to MV E' Ratio 21.4 Mitral E to LV E' Lateral Ratio 26.0 Mitral E to LV E' Septal Ratio 18.5 TR Peak Velocity 263.0 cm/s TR Peak Gradient 27.7 mmHg TV Peak E Velocity 104.0 cm/s Right Atrial Pressure 3.0 mmHg Pulmonary Artery Systolic Pressu 30.7 mmHg PV Peak Velocity 84.0 cm/s FINDINGS Left Ventricle Normal left ventricular size and systolic function, EF 69 %. Grade II/IV diastolic dysfunction, moderately elevated filling pressures. Right Ventricle The right ventricle is normal in size and function. Right Atrium The right atrium is normal in size. Left Atrium Mildly increased left atrial size. Mitral Valve Thickened mitral valve. Moderate mitral annular calcification. Trace mitral valve regurgitation. Aortic Valve Thickened aortic valve. Trace to mild aortic valve regurgitation. Tricuspid Valve No gross abnormalities noted Pulmonic Valve No gross abnormalities noted Pericardium Normal pericardium without effusion. Aorta Plaque seen in the ascending aorta. CONCLUSIONS Normal left ventricular size and systolic function, EF 69 %. Grade II/IV diastolic dysfunction, moderately elevated filling pressures. No gross wall motion abnormalities Mildly increased left atrial size. Thickened mitral valve. Moderate mitral annular calcification. Trace mitral valve regurgitation. There is no pericardial effusion. There are no intracardiac masses. Dr Keisha Coronel MD FACC (Electronically Signed) Final Date: 14 October 2020 17:06 S
--- NOTE | 2020-10-13 13:14 | PC.NURSE ---
Attempted to give report x2 to Med Surg, was placed on hold. Both times after 10 minutes of being on hold. Will be giving nurse bedside report on the floor upon patient transfer
--- NOTE | 2020-10-13 13:15 | PM.HP ---
Providers/Chief Complaint Admitting Physician: Bayron Browne MD Primary Care Provider: Ami Perez DO Chief Complaint: Faint episodes History of Present Illness Myesha Parker is a 70 year old female who presents to the emergency department today after 2 episodes of syncope. She was getting an ultrasound done. Apparently she was given some orange juice and felt better. Her sugar was not tested. She was recently admitted to the hospital for a GI bleed, and is felt sleepy and weak since that time. Prior to her syncope she was having some palpitations. Previous history of Covid in July. No fever, blood in stool, black or tarry stool, vomiting, hematemesis. An EGD was performed at her last hospital stay secondary to upper GI bleeding. Multiple inflamed polyps were noted at that time. She was told to hold her aspirin, and follow-up with her primary care provider regarding when it should be restarted. She does not know if she has been taking aspirin. She does denies any anti-inflammatory use. Review of Systems General: Reports: 10 or more systems reviewed and unremarkable except in HPI and below Const: Denies: fever(s) or chills Eyes: Denies: change in vision ENMT: Denies: throat pain Card: Reports: palpitations Resp: Reports: dyspnea and non-productive cough GI: Reports: abdominal pain : Reports: dysuria; Denies: flank pain Musc: Reports: back pain; Denies: neck pain Skin/Breast: Denies: rash Neuro: Reports: lack of coordination and dizziness; Denies: headache(s) Psych: Denies: anxiety or depression Endo: Reports: tired all the time [place]/Lymph: Denies: easy bruising All/Imm: Denies: urticaria Medications/Allergies Home Medications Medication Instructions Recorded Confirmed Last Taken Type levothyroxine 175 mcg capsule 175 mcg PO DAILY@09/09/19 10/13/20 10/13/20 History potassium chloride 20 mEq 20 meq PO BID@09/09/19 10/13/20 10/13/20 History tablet,extended release ferrous gluconate 324 mg (37.5 mg 324 mg PO DAILY@10/02/19 10/13/20 10/12/20 History iron) tablet garlic 1,000 mg capsule 1,000 mg PO DAILY@10/02/19 10/13/2017/21 History Liver Aid 2 tab PO DAILY@10/12/19 10/13/20 10/13/20 History acetaminophen [Arthritis Pain 650 mg PO PRN PRN 10/12/19 10/13/20 Unknown History Reliever] atorvastatin [Lipitor] 40 mg PO DAILY@10/12/19 10/13/20 10/12/20 History black cohosh 80 mg PO BID@10/12/19 10/13/20 10/13/20 History carica papaya [Papaya Enzyme] 4 tab PO PRN 10/12/19 10/13/20 03/20/20 09:00 History chlorpheniramine maleate 4 mg PO TID@10/12/19 10/13/20 10/13/20 History [ChlorTabs] cholecalciferol (vitamin D3) 2,000 unit PO DAILY@10/12/19 10/13/20 10/13/20 History [Vitamin D3] cranberry 1 tab PO DAILY@10/12/19 10/13/20 10/13/20 History diphenhydramine HCl [Benadryl] 25 mg PO TID@ PRN 10/12/19 10/13/20 10/12/20 History docusate sodium [Stool Softener] 200 mg PO BID@10/12/19 10/13/20 10/13/20 History loperamide [Anti-Diarrheal 2 - 4 mg PO PRN PRN 10/12/19 10/13/20 03/20/20 History (loperamide)] loratadine 20 mg PO DAILY@10/12/19 10/13/20 10/13/20 History magnesium L-lactate [Magtab] 84 mg PO BID@10/12/19 10/13/20 10/12/20 History methylsulfonylmethane [MSM] 1,000 mg PO BID@10/12/19 10/13/20 10/13/20 History nitroglycerin [Nitrostat] 0.4 mg SUBLINGUAL Q5M PRN 10/12/19 10/13/20 Unknown History omega 7-mqf-ups-fish oil [Ultra 2 cap PO DAILY@23 10/12/19 10/13/20 10/12/20 History [place]-3] pantothenic acid (vit B5) 500 mg PO DAILY@10/12/19 10/13/20 10/13/20 History pyridoxine (vitamin B6) [Vitamin 100 mg PO DAILY@10/12/19 10/13/20 10/13/20 History B-6] riboflavin (vitamin B2) [Vitamin 100 mg PO DAILY@10/12/19 10/13/20 10/13/20 History B-2] vitamin E 400 unit PO DAILY@10/12/19 10/13/20 10/13/20 History zinc 50 mg PO DAILY@10/12/19 10/13/20 10/12/20 History amlodipine 10 mg PO DAILY@12/31/19 10/13/20 10/13/20 History insulin lispro [Admelog U-100 See Rx Instructions .ROUTE .COMPLEX 12/31/19 10/13/20 10/12/20 History Insulin lispro] furosemide 20 mg tablet 20 mg PO DAILY@04/13/20 10/13/20 10/13/20 History aripiprazole [Abilify] 5 mg PO DAILY@08/07/20 10/13/20 10/13/20 History buspirone 10 mg PO BID@08/07/20 10/13/20 10/13/20 History duloxetine [Cymbalta] 30 mg PO DAILY@08/07/20 10/13/20 10/13/20 History duloxetine [Cymbalta] 60 mg PO DAILY@08/07/20 10/13/20 10/13/20 History metoprolol tartrate 100 mg PO Q12H 08/07/20 10/13/20 10/13/20 History pantoprazole [Protonix] 40 mg PO BID@08/07/20 10/13/20 10/13/20 History albuterol sulfate 1 inh INHALATION Q6H PRN #18 g 08/12/20 10/13/20 Unknown Rx tizanidine 4 mg tablet 4 mg PO TID PRN #90 tab 08/31/20 10/13/20 Unknown Rx tramadol 50 mg tablet 100 mg PO TID@ PRN #180 tab 08/31/20 10/13/20 Unknown Rx methotrexate sodium 2.5 mg tablet 7.5 mg PO Q7D #15 tab 09/28/20 10/13/20 10/09/20 Rx sulfasalazine 500 mg tablet 0.5 g PO BID@ #60 tab 09/28/20 10/13/20 10/13/20 Rx Novolin 70/30 U-100 Insulin See Rx Instructions .ROUTE .COMPLEX 10/08/20 10/13/20 10/12/20 History albuterol sulfate 2.5 mg INHALATION TID PRN 10/08/20 10/13/20 Unknown History aspirin 325 mg PO BEDTIME 10/08/20 10/13/20 10/12/20 History digoxin 125 mcg PO DAILY@08 10/08/20 10/13/20 10/13/20 History folic acid 1 mg PO DAILY@08 10/08/20 10/13/20 10/13/20 History hydrocortisone See Rx Instructions .ROUTE .COMPLEX 10/08/20 10/13/20 Unknown History ketoconazole See Rx Instructions .ROUTE .COMPLEX 10/08/20 10/13/20 Unknown History prednisone See Rx Instructions .ROUTE .COMPLEX 10/08/20 10/13/20 10/12/20 History 2 tabs today hydralazine 50 mg PO TID@,10/13/20 10/13/20 10/13/20 History hydrocodone-acetaminophen 1 tab PO TID@,, PRN 10/13/20 10/13/20 Unknown History Allergies Allergy/AdvReac Type Severity Reaction Status Date / Time adhesive tape Allergy rash Verified 10/08/20 06:33 cinnamon Allergy sinus Verified 10/08/20 06:33 codeine Allergy unknown Verified 10/08/20 06:33 cedar Allergy sinus Uncoded 10/08/20 06:33 pine Allergy sinus Uncoded 10/08/20 06:33 pork food Allergy ADR-Nausea Uncoded 10/08/20 06:33 PFSH Acute PFSH: Medical History (Updated 10/13/20 @ 13:59 by Bayron Browne MD) Anxiety and depression CHF exacerbation COPD (chronic obstructive pulmonary disease) Oxygen dependent, 2 L at baseline COVID-14 August 2020 Fibromyalgia Hyperlipidemia Hypertension Hypothyroidism Inflammatory arthritis Intermittent atrial fibrillation Because the patient history of frequent fall she was thought to be high risk for bleeding complications. So she is taking only the aspirin at this time. SHE HAS EASY BRUISING WELL Left renal mass Liver cirrhosis Low back pain of over 3 months duration Lung nodule Narrow complex tachycardia Osteoarthritis of knees, bilateral Poorly controlled diabetes mellitus Recurrent UTI Seronegative rheumatoid arthritis of both hands Unstable angina Urgency incontinence UTI (urinary tract infection) Surgical History (Updated 10/13/20 @ 13:33 by Bayron Browne MD) History of cardiac cath History of cholecystectomy History of hysterectomy History of knee replacement History of thyroid surgery Family History Other CAD (coronary artery disease) Cancer Denies family history of Anesthesia complication Bleeding disorder Social History Smoking and tobacco status: former smoker Quit status (tobacco): has quit using tobacco Year quit tobacco: 2005 Second hand smoke exposure: No Alcohol intake: never Adopted: No Caregiver/support person: No Lives independently: No Household members: spouse Marital status: Current occupational status: retired History of recent travel: No Current gender identity: Female Vitals/I&O/Wt Last Vital Signs Temp 97.8 F 10/13/20 08:22 Pulse 62 10/13/20 12:00 Resp 22 H 10/13/20 12:00 BP 123/43 10/13/20 12:00 Pulse Ox 99 10/13/20 12:00 10/12/20 10/13/20 10/13/20 22:59 06:59 14:59 Intake Total 1000 / 1000 Balance 1000 / 1000 Weight last 48 hrs Weight 106.594 kg Physical Exam Narrative: EXAM NARRATIVE: General exam is mild respiratory distress HEENT atraumatic normocephalic. Right pupil enlarged and irregular. Left reactive. Oropharynx clear. Neck is supple no lymphadenopathy or thyromegaly Cardiovascular regular rate and rhythm with a 2/6 systolic murmur Lungs coarse with diminished breath sounds at the bases Abdomen is soft nontender with positive bowel sounds. No obvious organomegaly was deferred Extremities no cyanosis clubbing or edema, cap refill brisk Neuro no obvious focal deficits Skin no rash Data : 10/13/20 08:40 10/13/20 08:40 Other Labs: AST slightly elevated at 37, ALT 29, alk phos 120. Troponin 33 with repeat 27 Albumin 2.[address] abdomen pelvis demonstrated small right effusion, right basilar atelectasis, small amount of perihepatic fluid, cirrhotic changes of the liver, mild diffuse wall thickening of the stomach, some edema right lateral abdominal wall Chest x-ray consistent with mild edema, small right effusion Last echocardiogram November 2019 demonstrated preserved EF, mild aortic stenosis EKG demonstrates atrial fibrillation, left axis deviation, intraventricular conduction delay, right bundle, nonspecific ST-T wave changes A&P Assessment and plan (1) Anemia: This patient has symptomatic anemia. Although the hemoglobin is over 7 the patient has had 2 syncopal episodes and is short of breath. Therefore a transfusion will be ordered of 1 unit packed red blood cells. Lasix 40 mg IV will be given prior to transfusion because I believe the patient has some element of fluid overload/CHF. Status: Acute (2) UGIB (upper gastrointestinal bleed): Recent history of GI bleeding, with concern of inflamed polyps. Initiate Protonix p.o. Patient denies any black or tarry stools. Hold all anti-inflammatories and anticoagulation. Check fecal Hemoccult. Status: Acute (3) Palpitations: Check TSH Serial troponins and EKGs Telemetry Status: Acute (4) Heart failure with preserved ejection fraction: Lasix 40 mg IV now. Repeat 40 mg IV following transfusion Check echocardiogram Repeat dose of Lasix 20 mg IV following transfusion Status: Acute (5) COPD (chronic obstructive pulmonary disease): Schedule pulmonary toilet with DuoNeb Status: Chronic Qualifiers: COPD type: unspecified COPD Qualified Code(s): J44.9 - Chronic obstructive pulmonary disease, unspecified Additional A&P Information History of hypothyroidism, check TSH Hypertension blood pressure was somewhat low in the emergency department. Continue her metoprolol but lower dose. Hold other antihypertensives. Hyperlipidemia Type 2 diabetes, sliding scale insulin Depression/anxiety Past history of Covid in July. Multiple other medical problems as outlined in past medical history. Full code SCDs for DVT prophylaxis secondary to severe symptomatic anemia with history of GI bleeding, avoid anticoagulation Attestations Medical Necessity Statement*: Will need greater than 2 midnight stay secondary to symptomatic anemia, congestive heart failure requiring diuresis. Time Spent in Patient Care: Greater than 35 minutes Coding Level of Care Code Acute Drywall Sprayer for g Fwd Diagnoses Anemia D64.9 UGIB (upper gastrointestinal bleed) K92.2 Palpitations R00.2 Heart failure with preserved ejection fraction I50.30 COPD (chronic obstructive pulmonary disease) J44.9 COPD type: unspecified COPD
[2020-10-13 14:20] LABS: Digoxin 1.6 ng/mL (0.6-1.2)
--- NOTE | 2020-10-13 14:23 | ECG_ITS ---
[facility] Test Date: 2020-10-13 Pat Name: Myesha aPrker Department: Room: 255 Gender: Female Tank Inspector: : 1950 Requested By: Kenrick Al Order Number: [id number] Wilbur MD: Victoriano White M.D. Measurements Intervals [place] Rate: 66 P: AR: QRS: -47 QRSD: 149 T: 0 QT: 266 QTc: 280 Interpretive Statements Sinus rhythm with first degree AV block RIGHT BUNDLE BRANCH BLOCK [120+ ms QRS DURATION, UPRIGHT V1, 40+ ms S IN I/aVL/V4/V5/V6] LEFT ANTERIOR FASCICULAR BLOCK [QRS AXIS <= -45, QR IN I, RS IN II] PROBABLE SEPTAL MYOCARDIAL INFARCTION [35 ms Q WAVE IN V1/V2], PROBABLY OLD Compared to ECG 10/13/2020 10:26:28 Left anterior fascicular block now present Sinus rhythm no longer present Left-axis deviation no longer present Myocardial infarct finding still present Electronically Signed On 10-14-2020 16:46:52 TOBACCO CUTTER by Victoriano White M.D. [id number]
[2020-10-13 14:26] LABS: Thyroid Stimulating Hormone 0.79 uIU/mL (0.27-4.20)
[2020-10-13] MEDS: FUROsemide 10 mg/mL SDV 4mL 40 MG IVP (14:39)
[2020-10-13] MEDS: levofloxacin-dextrose 5 % 750 MG/150 ML PREMIX 100 MG IV (14:39)
[2020-10-13] MEDS: ipratropium-albuterol 3 mL Neb INHALATION ×2 (15:13→20:39)
[2020-10-13 16:47] LABS: Troponin 5 6HR 24.65 ng/L (0-10)
[2020-10-13 17:17] LABS: Troponin 5 6HR Delta -8.35 ng/L (0-12)
[2020-10-13] MEDS: BuSPIRONE 10 mg Tablet PO (17:17)
[2020-10-13] MEDS: pantoprazole DR 40 mg Tablet PO (17:17)
[2020-10-13 17:53] LABS: Glucose Point of Care 252 mg/dL (70-110)
[2020-10-13 21:35] LABS: Glucose Point of Care 192 mg/dL (70-110)
[2020-10-13] MEDS: metoprolol tartrate 25 mg Tablet PO (22:08)
[2020-10-13] MEDS: atorvastatin 40 mg Tablet PO (22:08)
--- NOTE | 2020-10-13 23:10 | PC.NURSE ---
1st unit of PRBC started at this time. Patient tolerating well. Consent was signed.
[2020-10-14] VITALS (22 sets, daily range): BP systolic 144–172; BP diastolic 73–85; PULSE 70–116; RESP 17–20; TEMP 36.6–37; O2SAT 93–98
[2020-10-14] MEDS: ipratropium-albuterol 3 mL Neb INHALATION ×6 (00:42→23:47)
[2020-10-14] MEDS: sodium chloride 0.9% (100 ml) 100 ML 125 ML (01:55)
[2020-10-14] MEDS: FUROsemide 10 mg/mL SDV 2mL 20 MG IVP (02:53)
--- NOTE | 2020-10-14 05:00 | XR_ITS ---
WS: [id number] PORTABLE CHEST HISTORY: chf COMPARISON: 10/13/2020 Continued mild interstitial thickening is probably due to fluid overload and edema. No pneumonia. Min imal blunting of the RIGHT costophrenic angle. Cardiac size: Mildly enlarged cardiac silhouette. Mediastinum/Aorta: Mild atherosclerosis aorta. No osseous abnormality seen. XR/XR chest 1V portable 32121 IMPRESSION: 1. Persistent mild CHF and interstitial edema. 2. Small RIGHT pleural effusion.
[2020-10-14 05:48] LABS: Basophils % 0.6 %; Eosinophils # 0.1 10^3/uL (0.0-0.8); Hematocrit 28.9 % (37.0-47.0); Hemoglobin 9.1 g/dL (11.5-15.3); Lymphocytes # 1.1 10^3/uL (0.8-4.8); Lymphocytes % 16.1 %; Mean Corpuscular HGB Conc 31.5 g/dL (30.0-36.0); Mean Corpuscular Hemoglobin 30.2 pg (28.0-34.0); Mean Platelet Volume 9.7 fL (7.4-10.4); Monocytes # 0.6 10^3/uL (0.2-0.9); Monocytes % 8.5 %; Neutrophils # 5.04 10^3/uL (1.8-7.7); Neutrophils % 72.2 %; Nucleated Red Blood Cells % 0 %; Platelet Count 184 10^3/cmm (130-400); Red Blood Count 3.01 10^6/uL (4.1-5.3); Red Cell Distribution Width 15.4 % (12.1-15.1)
[2020-10-14 06:11] LABS: Alanine Aminotransferase 25 U/L (0-33); Albumin Level 3.2 g/dL (3.5-5.2); Alkaline Phosphatase 96 IU/L (35-105); Anion Gap 13.3 (5-19); Aspartate Amino Transferase 24 U/L (0-32); Blood Urea Nitrogen 18 mg/dL (8-23); Calcium 8.6 mg/dL (8.5-10.5); Carbon Dioxide 34 mmol/L (22-29); Chloride 99 mmol/L (98-107); Globulin 2.7 g/dL (1.3-4.6); Glucose 206 mg/dL (65-115); Osmolality Calculated 304 mOsm/kg (285-295); Potassium 3.3 mmol/L (3.5-5.1); Sodium 143 mmol/L (136-145); Total Bilirubin 0.4 mg/dL (0.15-1.2); Total Protein 5.9 g/dL (6.6-8.7)
[2020-10-14 06:49] LABS: Glucose Point of Care 246 mg/dL (70-110)
[2020-10-14] MEDS: levothyroxine 50 mcg Tablet PO (08:05)
[2020-10-14] MEDS: duloxetine 30 mg Capsule PO (08:05)
[2020-10-14] MEDS: duloxetine 60 mg Capsule PO (08:05)
[2020-10-14] MEDS: ARIPiprazole 10 mg Tablet 5 MG PO (08:05)
[2020-10-14] MEDS: levothyroxine 125 mcg Tablet PO (08:05)
[2020-10-14] MEDS: digoxin 125 mcg Tablet PO (08:06)
[2020-10-14] MEDS: predniSONE 5 mg Tablet PO (08:10)
[2020-10-14] MEDS: pantoprazole DR 40 mg Tablet PO ×2 (08:10→17:22)
[2020-10-14] MEDS: folic acid 1 mg Tablet PO (08:10)
[2020-10-14] MEDS: BuSPIRONE 10 mg Tablet PO ×2 (08:10→17:22)
[2020-10-14] MEDS: metoprolol tartrate 25 mg Tablet PO ×2 (08:10→13:35)
[2020-10-14] MEDS: potassium chloride ER 20 mEq Tablet 40 MEQ PO (10:10)
--- NOTE | 2020-10-14 10:24 | PM.PN ---
Subjective Medications: Reviewed: Yes Vitals/I&O/Wt Last Vital Signs Temp 98.3 F 10/14/20 08:00 Pulse 78 10/14/20 08:06 Resp 17 10/14/20 08:00 BP 166/78 10/14/20 08:00 Pulse Ox 93 10/14/20 08:00 10/13/20 10/14/20 10/14/20 22:59 06:59 14:59 Intake Total 390 / 1390 350 / 1740 Output Total 602 / 602 1500 / 2102 650 / 650 Balance -212 / 788 -1150 / -362 -650 / -650 Weight last 48 hrs Weight 106.594 kg Data : 10/14/20 05:22 10/14/20 05:22 Coding Level of Care Code Acute Primer And Powder Canning Leader for Dougie Samson
--- NOTE | 2020-10-14 10:38 | PC.CHAP ---
Pastoral Care Encounter/Spiritual Assessment Type of Contact [] Declined bead worker sewing visit [] Patient/Family/Request visit [] Outpatient visit [] Follow-up visit [] Physician referral [] Code/Alert [x] Routine visit [] Staff referral [] Actively dying [x] Patient sleeping [] Family support [] [] Out of room [] Palliative care [] [] Receiving care in room [] Pre-surgical visit [] Trauma [] Long length of stay [] ICU visit [] Other: Relational/Emotional Strength [] Patient feels connected with others/family/visitors/staff [] Distress [] Loneliness/isolation [] Abandonment Spirituality of Patient [] Person of Joelle [] Attends Roman Catholic of their Joelle [] Believes in Prayer [] Reads Bible or Anglican materials [] There are Spiritual issues to be addressed Security Business Analyst Interventions [] Prayer [] Active listening [] Non-anxious presence [] Spiritual/emotional support [] Crisis/trauma care [] Spiritual counseling [] Bereavement support [] Provided bereavement packet [] Provided Bible/devotional materials [] Provided toy/stuffed animal, coloring book to patient or family member [] Provided Communion [] Anointing/[place] [] Salvation [] Completed spiritual assessment [] Other: Impact on Illness or Injury [] Angry [] Fearful [] Anxious [] Often cries [] Exhaustion [] Unable to work [] Unable to attend episcopal [] Unable to walk/stand [] Unable to read [] Unable to drive [] Unable to eat/drink [] Unable to sleep [] Unable to be with family [] Patient intubated [] Other: Summary Time spent with patient
[2020-10-14] MEDS: FUROsemide 10 mg/mL SDV 4mL 40 MG IVP (10:53)
--- NOTE | 2020-10-14 10:55 | P.PN_ITS ---
Documented by User: Carolyn CloudFRED STDNT 10/14/20 11:07 Subjective Subjective: Interval history: Myesha reports that she still has a cough with nonbloody mucus. Reports she is short of breath and is not at baseline. Reports 1 episode of dizziness this morning when she got up to use the bathroom. States her generalized abdominal pain comes and goes. Has not had a bowel movement since hospital admission. Medications: Reviewed: Yes Vitals/I&O/Wt Last Vital Signs Temp 98.3 F 10/14/20 08:00 Pulse 78 10/14/20 08:06 Resp 17 10/14/20 08:00 BP 166/78 10/14/20 08:00 Pulse Ox 93 10/14/20 08:00 10/13/20 10/14/20 10/14/20 22:59 06:59 14:59 Intake Total 390 / 1390 350 / 1740 240 / 240 Output Total 602 / 602 1500 / 2102 650 / 650 Balance -212 / 788 -1150 / -362 -410 / -410 Weight last 48 hrs Weight 106.594 kg Physical Exam Narrative: EXAM NARRATIVE: General: white female with mild shortness of breath Cardiovascular: regular rate and rhythm with 2/6 systolic murmur Lungs: coarse lung sounds at the bases, slight wheezing Abdomen: soft nontender with positive bowel sounds Extremities: no cyanosis, clubbing, or edema Data : 10/14/20 05:22 10/14/20 05:22 Coding Level of Care Code Acute Food Production Machine Operator for [facility] Fwd Diagnoses Anemia D64.9 UGIB (upper gastrointestinal bleed) K92.2 Palpitations R00.2 Heart failure with preserved ejection fraction I50.30 COPD (chronic obstructive pulmonary disease) J44.9 COPD type: unspecified COPD Documented by User: Bayron Browne MD 10/14/20 12:36 Subjective Subjective: Interval history: Agree with above. I discussed with the patient as well. Medications: Reviewed: Yes Physical Exam Narrative: EXAM NARRATIVE: Agree with above. No changes. I examined the patient as well. Data : 10/14/20 05:22 10/14/20 05:22 A&P Assessment and plan (1) Anemia: She received 1 unit of packed red blood cells overnight. Globin is 9.1 up from 7.4. Stool Hemoccult is ordered. She has not had a bowel movement. There is no reason to suspect an active upper GI bleed Status: Acute (2) UGIB (upper gastrointestinal bleed): Recent upper GI bleed, with inflamed polyps noted on EGD. Status: Acute (3) Palpitations: Patient with history of atrial fibrillation. Troponins not concerning Status: Acute (4) Heart failure with preserved ejection fraction: Some element of decompensated diastolic acute heart failure. She received Lasix with transfusion yesterday Initiate Lasix 40 mg IV every 24 hours Status: Acute (5) COPD (chronic obstructive pulmonary disease): Stable currently. Continue pulmonary toilet. Status: Chronic Qualifiers: COPD type: unspecified COPD Qualified Code(s): J44.9 - Chronic obstructive pulmonary disease, unspecified Additional A&P Information History of hypothyroidism, check TSH Hypertension blood pressure was somewhat low in the emergency department. This has recovered nicely. Increase her metoprolol. 25 mg p.o. now x1. Digoxin level high. Hold this today and recheck tomorrow. Hyperlipidemia Type 2 diabetes, sliding scale insulin Depression/anxiety Past history of Covid in July. Multiple other medical problems as outlined in past medical history. Full code SCDs for DVT prophylaxis secondary to severe symptomatic anemia with history of GI bleeding, avoid anticoagulation Attestations Medical Necessity Statement*: Needs continued hospitalization for further diuresis secondary to acute diastolic heart failure, and readjustment of medications for hypertension. She is currently somewhat tachycardic likely secondary to reduction of metoprolol dosage on admission as she was hypotensive. Digoxin will have to be held secondary to elevated level but could consider restarting every other day when level drops. Coding Level of Care Code Acute Food Production Machine Operator for [facility] Fwd Diagnoses Anemia D64.9 UGIB (upper gastrointestinal bleed) K92.2 Palpitations R00.2 Heart failure with preserved ejection fraction I50.30 COPD (chronic obstructive pulmonary disease) J44.9 COPD type: unspecified COPD
[2020-10-14] MEDS: HYDROcodone-acetaminophen 5-325 mg Tablet 1 TAB PO (11:00)
[2020-10-14 11:23] LABS: Glucose Point of Care 259 mg/dL (70-110)
[2020-10-14 17:18] LABS: Glucose Point of Care 186 mg/dL (70-110)
[2020-10-14] MEDS: metoprolol tartrate 50 mg Tablet 100 MG PO (20:48)
[2020-10-14 21:17] LABS: Glucose Point of Care 196 mg/dL (70-110)
[2020-10-14] MEDS: atorvastatin 40 mg Tablet PO (22:06)
[2020-10-15] VITALS (20 sets, daily range): BP systolic 117–169; BP diastolic 58–84; PULSE 66–104; RESP 15–20; TEMP 36.2–37.4; O2SAT 91–99
[2020-10-15] MEDS: ipratropium-albuterol 3 mL Neb INHALATION ×5 (04:04→20:50)
[2020-10-15 06:20] LABS: Basophils # 0.1 10^3/uL (0.0-0.1); Basophils % 0.8 %; Eosinophils # 0.1 10^3/uL (0.0-0.8); Eosinophils % 1.8 %; Hematocrit 32.1 % (37.0-47.0); Lymphocytes # 1.2 10^3/uL (0.8-4.8); Lymphocytes % 18.7 %; Mean Corpuscular HGB Conc 31.2 g/dL (30.0-36.0); Mean Corpuscular Hemoglobin 29.7 pg (28.0-34.0); Mean Corpuscular Volume 95.3 fL (81-99); Mean Platelet Volume 9.7 fL (7.4-10.4); Monocytes # 0.6 10^3/uL (0.2-0.9); Monocytes % 9.4 %; Neutrophils # 4.48 10^3/uL (1.8-7.7); Neutrophils % 68.8 %; Nucleated Red Blood Cells % 0 %; Platelet Count 202 10^3/cmm (130-400); Red Blood Count 3.37 10^6/uL (4.1-5.3); Red Cell Distribution Width 15.1 % (12.1-15.1); White Blood Count 6.5 10^3/uL (4.0-10.0)
[2020-10-15 06:38] LABS: Digoxin 0.9 ng/mL (0.6-1.2)
[2020-10-15 07:02] LABS: Glucose Point of Care 191 mg/dL (70-110)
[2020-10-15 07:10] LABS: Anion Gap 11.1 (5-19); Blood Urea Nitrogen 14 mg/dL (8-23); Calcium 8.9 mg/dL (8.5-10.5); Carbon Dioxide 40 mmol/L (22-29); Chloride 96 mmol/L (98-107); Glucose 174 mg/dL (65-115); Osmolality Calculated 303 mOsm/kg (285-295); Potassium 3.1 mmol/L (3.5-5.1); Sodium 144 mmol/L (136-145)
[2020-10-15] MEDS: levothyroxine 50 mcg Tablet PO (08:23)
[2020-10-15] MEDS: levothyroxine 125 mcg Tablet PO (08:23)
[2020-10-15] MEDS: ARIPiprazole 10 mg Tablet 5 MG PO (08:23)
[2020-10-15] MEDS: duloxetine 30 mg Capsule PO (08:24)
[2020-10-15] MEDS: pantoprazole DR 40 mg Tablet PO ×2 (08:24→18:01)
[2020-10-15] MEDS: metoprolol tartrate 50 mg Tablet 100 MG PO ×2 (08:24→20:43)
[2020-10-15] MEDS: predniSONE 5 mg Tablet PO (08:24)
[2020-10-15] MEDS: BuSPIRONE 10 mg Tablet PO ×2 (08:24→18:01)
[2020-10-15] MEDS: folic acid 1 mg Tablet PO (08:24)
[2020-10-15] MEDS: duloxetine 60 mg Capsule PO (08:24)
[2020-10-15] MEDS: HYDROcodone-acetaminophen 5-325 mg Tablet 1 TAB PO (08:38)
[2020-10-15] MEDS: digoxin 125 mcg Tablet PO (09:15)
[2020-10-15] MEDS: potassium chloride ER 20 mEq Tablet 40 MEQ PO ×2 (09:16→20:43)
[2020-10-15] MEDS: levoFLOXacin 750 mg Tablet PO (09:20)
[2020-10-15] MEDS: FUROsemide 10 mg/mL SDV 4mL 40 MG IVP (09:56)
--- NOTE | 2020-10-15 10:35 | PM.PN ---
Documented by User: Carolyn AiFRED STDSARAH 10/15/20 11:01 Subjective Subjective: Interval history: Myesha reports that she is feeling better today. She still has a cough and is producing yellow phlegm. She has slight shortness of breath but the breathing treatments help her breathe better. She currently has nasal cannula on 3L of oxygen. She states she uses 3L of oxygen at home as well. Reports feeling dizzy and lightheaded when she sits or stands up. She reports chronic back pain. Medications: Reviewed: Yes Vitals/I&O/Wt Last Vital Signs Temp 99.3 F 10/15/20 07:50 Pulse 72 10/15/20 09:15 Resp 17 10/15/20 07:50 BP 150/84 10/15/20 09:04 Pulse Ox 95 10/15/20 09:04 10/14/20 10/15/20 10/15/20 22:59 06:59 14:59 Intake Total 700 / 1180 360 / 360 Output Total 400 / 2550 400 / 2950 Balance 300 / -1370 -400 / -1770 360 / 360 Physical Exam Narrative: EXAM NARRATIVE: General: white female on nasal cannula with mild shortness of breath Cardiovascular: regular rate and rhythm with 2/6 systolic murmur Lungs: coarse lung sounds at bilateral bases, slight wheezing Abdomen: soft, nontender with positive bowel sounds Extremities: no cyanosis or edema Data : 10/15/20 05:26 10/15/20 05:26 A&P Assessment and plan (1) Anemia: She received 1 unit of packed red blood cells on hospital admission Hemoglobin was 7.4 on admission and is up to 10.0 today Stool Hemoccult is ordered. She has not had a bowel movement. There is no reason to suspect an active upper GI bleed Status: Acute (2) UGIB (upper gastrointestinal bleed): Recent upper GI bleed, with inflamed polyps noted on EGD. Status: Acute (3) Palpitations: Patient with history of atrial fibrillation. Troponins not concerning Status: Acute (4) Heart failure with preserved ejection fraction: Some element of decompensated diastolic acute heart failure. She received Lasix with transfusion Initiate Lasix 40 mg IV every 24 hours Status: Acute (5) COPD (chronic obstructive pulmonary disease): Stable currently. Continue pulmonary toilet. Status: Chronic Additional A&P Information History of hypothyroidism, check TSH. TSH normal. Hypertension blood pressure was somewhat low in the emergency department. This has recovered nicely. Increase her metoprolol. 25 mg p.o. now x1. Digoxin level within normal range today. Restarted Digoxin every other day. Hyperlipidemia Type 2 diabetes, sliding scale insulin Depression/anxiety Past history of Covid in July. Multiple other medical problems as outlined in past medical history. Full code SCDs for DVT prophylaxis secondary to severe symptomatic anemia with history of GI bleeding, avoid anticoagulation Coding Level of Care Code Acute Public Relations Manager for [facility] Fwd Diagnoses Anemia D64.9 UGIB (upper gastrointestinal bleed) K92.2 Palpitations R00.2 Heart failure with preserved ejection fraction I50.30 COPD (chronic obstructive pulmonary disease) J44.9 Documented by User: Bayron Browne MD 10/15/20 14:10 Subjective Subjective: Interval history: Agree with above. Medications: Reviewed: Yes Physical Exam Narrative: EXAM NARRATIVE: Agree with above, no changes Data : 10/15/20 05:26 10/15/20 05:26 A&P Additional A&P Information Agree with above Patient has hypokalemia, supplement Continue diuresis with Lasix today, few basilar crackles on exam and requiring 4 L of oxygen earlier this AM , change to p.o. tomorrow Add Levaquin secondary to purulent sputum and likelihood of acute bronchitis Probable discharge tomorrow if patient improvement occurs. All elements of this progress note I completed as well Attestations Medical Necessity Statement*: Needs continued hospitalization for diuresis for congestive heart failure. High likelihood of discharge tomorrow. Coding Level of Care Code Acute Public Relations Manager for [facility] Fwd Diagnoses Anemia D64.9 UGIB (upper gastrointestinal bleed) K92.2 Palpitations R00.2 Heart failure with preserved ejection fraction I50.30 COPD (chronic obstructive pulmonary disease) J44.9
[2020-10-15 11:15] LABS: Glucose Point of Care 216 mg/dL (70-110)
[2020-10-15 16:07] LABS: Glucose Point of Care 222 mg/dL (70-110)
[2020-10-15 21:28] LABS: Glucose Point of Care 154 mg/dL (70-110)
[2020-10-15] MEDS: atorvastatin 40 mg Tablet PO (22:10)
[2020-10-16] VITALS (8 sets, daily range): BP systolic 121–162; BP diastolic 68–80; PULSE 66–99; RESP 16–18; TEMP 36.4–36.9; O2SAT 95–98
[2020-10-16] MEDS: ipratropium-albuterol 3 mL Neb INHALATION ×2 (03:57→07:56)
[2020-10-16 05:00] LABS: Basophils % 0.5 %; Eosinophils # 0.1 10^3/uL (0.0-0.8); Eosinophils % 1.7 %; Hematocrit 30.7 % (37.0-47.0); Hemoglobin 9.4 g/dL (11.5-15.3); Lymphocytes # 0.8 10^3/uL (0.8-4.8); Lymphocytes % 14.4 %; Mean Corpuscular HGB Conc 30.6 g/dL (30.0-36.0); Mean Corpuscular Hemoglobin 30.1 pg (28.0-34.0); Mean Corpuscular Volume 98.4 fL (81-99); Mean Platelet Volume 9.5 fL (7.4-10.4); Monocytes # 0.5 10^3/uL (0.2-0.9); Monocytes % 9.3 %; Neutrophils # 4.28 10^3/uL (1.8-7.7); Neutrophils % 73.6 %; Nucleated Red Blood Cells % 0 %; Platelet Count 159 10^3/cmm (130-400); Red Blood Count 3.12 10^6/uL (4.1-5.3); Red Cell Distribution Width 15.1 % (12.1-15.1); White Blood Count 5.8 10^3/uL (4.0-10.0)
[2020-10-16 05:29] LABS: Anion Gap 10.2 (5-19); Blood Urea Nitrogen 19 mg/dL (8-23); Calcium 8.7 mg/dL (8.5-10.5); Carbon Dioxide 39 mmol/L (22-29); Chloride 98 mmol/L (98-107); Glucose 189 mg/dL (65-115); Osmolality Calculated 303 mOsm/kg (285-295); Potassium 4.2 mmol/L (3.5-5.1); Sodium 143 mmol/L (136-145)
[2020-10-16] MEDS: levoFLOXacin 750 mg Tablet PO (05:51)
[2020-10-16 06:49] LABS: Glucose Point of Care 173 mg/dL (70-110)
--- NOTE | 2020-10-16 07:59 | PM.DCS ---
Discharge Providers Date of Admission: 10/13/20 11:36 Date of Discharge: October 16, 2020 Attending Provider at Admission: Bayron Browne MD Attending Provider at Discharge: Bayron Browne MD Primary Care Provider: Ami Perez DO Diagnoses at Discharge Discharge Diagnosis (1) Anemia: Status: Acute (2) UGIB (upper gastrointestinal bleed): Status: Acute (3) Palpitations: Status: Acute (4) Heart failure with preserved ejection fraction: Status: Acute (5) COPD (chronic obstructive pulmonary disease): Status: Chronic Permanent problem details: Oxygen dependent, 2 L at baseline Reason for Visit Reason for Visit: Faint episodes Hospital Course Hospital Course Myesha presented to the hospital with some syncopal episodes and anemia. She had previously been hospitalized for a GI bleed, and noted inflamed gastric polyps on EGD. She complained of some dizziness with standing. Hemoglobin was 7.4. There was no evidence of active bleeding. She was short of breath. Evidence of acute congestive heart failure was noted on chest x-ray and clinical exam. She was transfused 1 unit. There was concern with acute bronchitis so Levaquin was added during her hospital stay. She was diuresed. Echocardiogram demonstrated preserved EF and 2/4 diastolic dysfunction. Multiple adjustments to her antihypertensive medication were performed. Hemoglobin remained stable following transfusion and was 9.4 on discharge. I discussed with her her medicine reductions, need for follow-up with cardiology and her primary care provider. They will discuss when aspirin can be reinitiated. She will keep track of her blood pressures. She will resume her home oxygen. Abdominal and pelvis CT was also performed demonstrating evidence of some congestive heart failure but no other acute findings. She had no evidence of myocardial infarction. Physical Exam Narrative: EXAM NARRATIVE: General exam is no apparent distress Cardiovascular regular rate and rhythm without murmur Lungs clear but with diminished breath sounds bilaterally Abdomen is soft nontender with positive bowel sounds Extremities no cyanosis clubbing or edema Discharge Data Data Completed and Pending: Completed Studies During Hospitalization Category Date Time Status CT abdomen pelvis w con* [id number] Stat Cat Scan 10/13/20 08:27 Completed XR chest 1V teetee ble [id number] Routine Exams 10/14/20 05:00 Completed XR chest 1V teetee ble [id number] Stat Exams 10/13/20 09:10 Completed CV echo complete* [id number] Routine Ultrasound 10/13/20 11:24 Completed Pending at discharge Category Date Time Status Immunochemical Fe cira OCB Routine Lab 10/13/20 13:50 Uncollected Labs from last 24 hours 10/16/20 10/16/20 10/16/20 06:41 04:35 04:35 WBC 5.8 RBC 3.12 L Hgb 9.4 L Hct 30.7 L MCV 98.4 MCH 30.1 MCHC 30.6 RDW 15.1 Plt Count 159 MPV 9.5 Neut % (Auto) 73.6 Lymph % (Auto) 14.4 [place] % (Auto) 9.3 Eos % (Auto) 1.7 Baso % (Auto) 0.5 Neut # (Auto) 4.28 Lymph # (Auto) 0.8 [place] # (Auto) 0.5 Eos # (Auto) 0.1 Baso # (Auto) 0.0 Nucleated RBC % (a uto) 0 Nucleated RBCs # 0.0 Sodium 143 Potassium 4.2 Chloride 98 Carbon Dioxide 39 H Anion Gap 10.2 BUN 19 Creatinine 0.9 GFR Calculation Not Reportable Glucose 189 H POC Glucose 173 H Calculated Osmolal ity 303 H Calcium 8.7 10/15/20 10/15/20 10/15/20 20:54 16:01 10:25 WBC RBC Hgb Hct MCV MCH MCHC RDW Plt Count MPV Neut % (Auto) Lymph % (Auto) [place] % (Auto) Eos % (Auto) Baso % (Auto) Neut # (Auto) Lymph # (Auto) [place] # (Auto) Eos # (Auto) Baso # (Auto) Nucleated RBC % (a uto) Nucleated RBCs # Sodium Potassium Chloride Carbon Dioxide Anion Gap BUN Creatinine GFR Calculation Glucose POC Glucose 154 H 222 H 216 H Calculated Osmolal ity Calcium Vitals: Last Vital Signs Temp 98.4 F 10/16/20 07:24 Pulse 70 10/16/20 07:24 Resp 17 10/16/20 07:24 BP 155/76 10/16/20 07:24 Pulse Ox 98 10/16/20 07:24 Discharge Plan Discharge Patient Disposition: Home Health Service Condition: Stable Prescriptions: New furosemide 40 mg Tablet 40 mg PO DAILY@0800 Qty: 30 RF: 0 levofloxacin 750 mg Tablet 750 mg PO DAILY@0600 Qty: 6 RF: 0 Continued ferrous gluconate 324 mg (37.5 mg iron) tablet 324 mg PO DAILY@12 RF: 0 sulfasalazine 500 mg tablet 0.5 g PO BID@ Qty: 60 RF: 3 levothyroxine 175 mcg capsule 175 mcg PO DAILY@08 RF: 0 potassium chloride 20 mEq tablet extended release 20 meq PO BID@, RF: 0 atorvastatin [Lipitor] 40 mg Tablet 40 mg PO DAILY@23 RF: 0 loperamide [Anti-Diarrheal (loperamide)] 2 mg Tablet 2 - 4 mg PO PRN PRN (Reason: Diarrhea) RF: 0 acetaminophen [Arthritis Pain Reliever] 650 mg Tablet Extended Release 650 mg PO PRN PRN (Reason: Pain) RF: 0 nitroglycerin [Nitrostat] 0.4 mg Tablet, Sublingual 0.4 mg SUBLINGUAL Q5M PRN (Reason: Chest Pain) RF: 0 docusate sodium [Stool Softener] 100 mg Capsule 200 mg PO BID@, RF: 0 zinc 50 mg Tablet 50 mg PO DAILY@12 RF: 0 pyridoxine (vitamin B6) [Vitamin B-6] 100 mg Tablet 100 mg PO DAILY@08 RF: 0 vitamin E 400 unit Capsule 400 unit PO DAILY@08 RF: 0 loratadine 10 mg Tablet 20 mg PO DAILY@08 RF: 0 magnesium L-lactate [Magtab] 84 mg tablet extended release 84 mg PO BID@ RF: 0 cholecalciferol (vitamin D3) [Vitamin D3] 25 mcg (1,000 unit) Tablet 2,000 unit PO DAILY@08 RF: 0 omega 5-fqh-rsp-fish oil [Ultra [place]-3] 500-1,000 mg Capsule 2 cap PO DAILY@ RF: 0 folic acid 1 mg tablet 1 mg PO DAILY@08 RF: 0 albuterol sulfate 2.5 mg /3 mL (0.083 %) Solution For Nebulization 2.5 mg inhalation TID PRN (Reason: Shortness Of Breath) RF: 0 aspirin 325 mg Tablet 325 mg PO BEDTIME RF: 0 Hold Instructions: Resume on 10/18/20. Novolin 70/30 U-100 Insulin 100 unit/mL (70-30) suspension See Rx Instructions .ROUTE .COMPLEX RF: 0 hydrocortisone 2.5 % cream See Rx Instructions .ROUTE .COMPLEX RF: 0 ketoconazole 2 % cream See Rx Instructions .ROUTE .COMPLEX RF: 0 prednisone 2.5 mg tablet See Rx Instructions .ROUTE .COMPLEX RF: 0 amlodipine 10 mg Tablet 10 mg PO DAILY@08 RF: 0 insulin lispro [Admelog U-100 Insulin lispro] 100 unit/mL Solution See Rx Instructions .ROUTE .COMPLEX RF: 0 metoprolol tartrate 100 mg tablet 100 mg PO Q12H RF: 0 pantoprazole [Protonix] 40 mg tablet,delayed release (DR/EC) 40 mg PO BID@, RF: 0 buspirone 10 mg tablet 10 mg PO BID@, RF: 0 aripiprazole [Abilify] 5 mg tablet 5 mg PO DAILY@08 RF: 0 duloxetine [Cymbalta] 30 mg capsule,delayed release(DR/EC) 30 mg PO DAILY@08 RF: 0 duloxetine [Cymbalta] 60 mg capsule,delayed release(DR/EC) 60 mg PO DAILY@08 RF: 0 albuterol sulfate 90 mcg/actuation HFA aerosol inhaler 1 inh inhalation Q6H PRN (Reason: shortness of breath or wheezing) Qty: 18 RF: 0 hydrocodone-acetaminophen 7.5-325 mg tablet 1 tab PO TID@,, PRN (Reason: pain) RF: 0 Changed digoxin 125 mcg (0.125 mg) tablet 125 mcg PO EVERY OTHER DAY Qty: 0 RF: 0 Discontinued garlic 1,000 mg capsule 1,000 mg PO DAILY@08 RF: 0 furosemide [Lasix] 20 mg tablet 20 mg PO DAILY@08 RF: 0 tizanidine 4 mg tablet 4 mg PO TID PRN (Reason: muscle spasticity) Qty: 90 RF: 1 tramadol 50 mg tablet 100 mg PO TID@,, PRN (Reason: pain) Qty: 180 RF: 0 methotrexate sodium 2.5 mg tablet 7.5 mg PO Q7D Qty: 15 RF: 3 Hold Instructions: Resume on 09/02/20. until seen by rheumatology pantothenic acid (vit B5) 500 mg Tablet 500 mg PO DAILY@08 RF: 0 chlorpheniramine maleate [ChlorTabs] 4 mg Tablet 4 mg PO TID@,, RF: 0 carica papaya [Papaya Enzyme] Tablet 4 tab PO PRN RF: 0 riboflavin (vitamin B2) [Vitamin B-2] 100 mg Tablet 100 mg PO DAILY@08 RF: 0 diphenhydramine HCl [Benadryl] 25 mg Capsule 25 mg PO TID@ PRN (Reason: ALLERGIES) RF: 0 methylsulfonylmethane [MSM] 1,000 mg Tablet 1,000 mg PO BID@ RF: 0 Liver Aid 2 tab PO DAILY@08 RF: 0 cranberry 1 tab PO DAILY@08 RF: 0 black cohosh 40 mg Tablet 80 mg PO BID@ RF: 0 hydralazine 50 mg tablet 50 mg PO TID@ RF: 0 Discharge Orders: Discharge Order (Routine); Ordered 10/16/20 Ordered By: Bayron Browne Other Ambulatory Orders: DME: Wheelchair (Order) Location: None Selected Ordered By: Bayron Browne Referrals: Ami Perez DO [Primary Care Provider] - 4-7 days (BMP, CBC on follow-up) Keisha Coronel MD [Physician] - 2 weeks (Follow-up congestive heart failure hospitalization) Discharge Diet: Cardiac and Diabetic Discharge Activity: Increase activity as tolerated Activity Restrictions/Additional Instructions: Resume your home oxygen at 3 L Follow-up with Dr. Coronel in 2 weeks Follow-up with your primary care provider 3 to 5 days with a BMP and CBC Do not take your methotrexate, until follow-up with rheumatology as you are on an antibiotic for concern of infection Monitor your blood pressures, and bring this with you to your appointment as blood pressure medicine has been changed. Discharge Attestations Time Spent in Discharge Care*: greater than 30 min Status at Discharge: Cognitive status at discharge: cognitively intact, Behavioral status at discharge: cooperative, Quality Metrics Clinical Quality Measures During this hospital stay, did patient experience: None Coding Level of Care Code Acute Jitney Driver for Chg Fwd Diagnoses Anemia D64.9 UGIB (upper gastrointestinal bleed) K92.2 Palpitations R00.2 Heart failure with preserved ejection fraction I50.30 COPD (chronic obstructive pulmonary disease) J44.9
[2020-10-16] MEDS: duloxetine 30 mg Capsule PO (08:16)
[2020-10-16] MEDS: BuSPIRONE 10 mg Tablet PO (08:16)
[2020-10-16] MEDS: ARIPiprazole 10 mg Tablet 5 MG PO (08:16)
[2020-10-16] MEDS: FUROsemide 40 mg Tablet PO (08:17)
[2020-10-16] MEDS: pantoprazole DR 40 mg Tablet PO (08:18)
[2020-10-16] MEDS: predniSONE 5 mg Tablet PO (08:18)
[2020-10-16] MEDS: levothyroxine 125 mcg Tablet PO (08:18)
[2020-10-16] MEDS: folic acid 1 mg Tablet PO (08:18)
[2020-10-16] MEDS: levothyroxine 50 mcg Tablet PO (08:18)
[2020-10-16] MEDS: duloxetine 60 mg Capsule PO (08:19)
[2020-10-16] MEDS: metoprolol tartrate 50 mg Tablet 100 MG PO (08:23)
[2020-10-16] MEDS: HYDROcodone-acetaminophen 5-325 mg Tablet 1 TAB PO (09:26)
--- NOTE | 2020-10-16 10:05 | PC.SOCIAL ---
Pg 2 IMM Explained to pt Pg 2 IMM. No questions voiced. Provided pt a copy. Signed, dated, timed a copy & placed in chart.
--- NOTE | 2020-10-16 10:10 | PC.NURSE ---
Patient asked about Home health services when nurse was providing discharge instructions. Patient was informed that home health had not been setup due to PT eval recommendations for patient to just have a Home exercise program. Nurse confirmed that PT had been in and provided education on exercises she could do at home. Patient confirmed that she was educated. Patient informed that it was up to her to perform these exercises on her own at home so she could get shahla and continue living at home safely. Patient voiced understanding. at bedside for this conversation.
== END 2020-10-16 11:02 | disposition home health service (06) | DRG 811 ==
LOC: ER 10:34 → MEDSURG 12:53
PROVIDERS: Admitting Provider Internal Medicine; Emergency Provider Family Medicine; PCP Internal Medicine; Visit Provider Internal Medicine
DX: D64.9 Anemia, unspecified (principal); I50.33 Acute on chronic diastolic (congestive) heart failure; J44.0 Chronic obstructive pulmonary disease with (acute) lower respiratory infection; R55 Syncope and collapse; Z86.16 Personal history of COVID-19; F41.8 Other specified anxiety disorders; I11.0 Hypertensive heart disease with heart failure; Z99.81 Dependence on supplemental oxygen; M79.7 Fibromyalgia; E78.5 Hyperlipidemia, unspecified; E03.9 Hypothyroidism, unspecified; I48.91 Unspecified atrial fibrillation; N28.89 Other specified disorders of kidney and ureter; K74.60 Unspecified cirrhosis of liver; M54.5 Low back pain; R91.8 Other nonspecific abnormal finding of lung field; M17.0 Bilateral primary osteoarthritis of knee; E11.65 Type 2 diabetes mellitus with hyperglycemia; Z87.440 Personal history of urinary (tract) infections; M06.042 Rheumatoid arthritis without rheumatoid factor, left hand; M06.041 Rheumatoid arthritis without rheumatoid factor, right hand; Z79.51 Long term (current) use of inhaled steroids; Z79.891 Long term (current) use of opiate analgesic; Z79.4 Long term (current) use of insulin; J20.9 Acute bronchitis, unspecified; I95.9 Hypotension, unspecified; Z87.891 Personal history of nicotine dependence; Z96.659 Presence of unspecified artificial knee joint; N39.41 Urge incontinence
CPT/HCPCS: 12345; 36415; 36416; 36430; 71045; 74177; 80048; 80053; 80162; 81003; 82962; 84145; 84443; 84484; 85025; 86850; 86900; 86920; 93005; 93306; 94640; 96365; 96366; 96372; 96375; 97110; 97116; 97162; 97165; 97530; 99285; J1815; J1940; J1956; J3490; J7030; J7512; P9016; Q9967

== ENCOUNTER → 2020-10-27 11:04 | Outpatient (BNVA) | payer MEDICARE, SELFPAY | PROVIDERS: PCP Internal Medicine; Visit Provider Nurse Practitioner Family | DX: I48.0 Paroxysmal atrial fibrillation (principal); I50.33 Acute on chronic diastolic (congestive) heart failure | CPT/HCPCS: 80162 ==

== ENCOUNTER → 2020-11-01 09:50 | Outpatient (BNVA) | payer MEDICARE, SELFPAY | PROVIDERS: PCP Internal Medicine; Visit Provider Nurse Practitioner Family | DX: Z79.899 Other long term (current) drug therapy (principal) | CPT/HCPCS: 80162 ==

== ENCOUNTER 2020-11-02 16:08 | Emergency (ER) | payer MEDICARE, SELFPAY ==
[2020-11-02 16:11] VITALS: BP 109/66; PULSE 64; RESP 20; TEMP 36.8; O2SAT 96; BMI 38.4
--- NOTE | 2020-11-02 17:05 | CTR_ITS ---
PROCEDURE INFORMATION: Exam: CT Head Without Contrast Exam date and time: 11/02/2020 5:18 PM Age: 70 years old Clinical indication: Injury or trauma; Fall; Blunt trauma (contusions or hematomas); Additional info: Fall. Pain neck, back, low back, hips bilateral. TECHNIQUE: Imaging protocol: Computed tomography of the head without contrast. Radiation optimization: All CT scans at this facility use at least one of these dose optimization techniques: automated exposure control; mA and/or kV adjustment per patient size (includes targeted exams where dose is matched to clinical indication); or iterative reconstruction. COMPARISON: CT head wo con* [id number] 07/20/2020 6:06 PM RADIATION DOSE METRICS: Total DLP (mGy-cm): 797.93 FINDINGS: Brain: No evidence of acute infarct. No mass or mass effect. No intra axial hemorrhage. No extra axial fluid collection or hemorrhage. Cerebral ventricles: Symmetric and without enlargement. Bones/joints: No acute fracture. Paranasal sinuses: Visualized sinuses are well aerated. Mastoid air cells: Visualized mastoid air cells are well aerated. Soft tissues: No concerning abnormalities. CT/CT head wo con* [id number] IMPRESSION: No acute intracranial abnormality. Radiation Dose CTDIVOL = (mGy): DLP = 797.93 (mGy-cm)
--- NOTE | 2020-11-02 17:06 | XRR_ITS ---
PROCEDURE INFORMATION: Exam: XR Left Knee Exam date and time: 11/02/2020 5:43 PM Age: 70 years old Clinical indication: Injury or trauma; Fall; Blunt trauma; Knee; Left TECHNIQUE: Imaging protocol: XR Left knee. Views: 3 views. COMPARISON: CR XR knee LT 3V* [id number] 07/20/2020 5:42 PM FINDINGS: Bones/joints: Status post total knee arthroplasty. The hardware is aligned and intact without surrounding lucency. No acute displaced fracture or dislocation. Soft tissues: Normal. XR/XR knee LT 3V* [id number] IMPRESSION: No acute osseous abnormality.
--- NOTE | 2020-11-02 17:06 | XRR_ITS ---
PROCEDURE INFORMATION: Exam: XR Right Knee Exam date and time: 11/02/2020 5:43 PM Age: 70 years old Clinical indication: Injury or trauma; Fall; Blunt trauma; Knee; Right TECHNIQUE: Imaging protocol: XR Right knee. Views: 3 views. COMPARISON: CR Knee 4 views, RIGHT [id number] 03/12/2017 5:07 PM FINDINGS: Bones/joints: Status post total knee arthroplasty. The hardware is intact and aligned without surrounding lucency. No acute displaced fracture or dislocation. Soft tissues: Normal. XR/XR knee RT 3V* [id number] IMPRESSION: No acute osseous abnormality.
--- NOTE | 2020-11-02 17:06 | CTR_ITS ---
PROCEDURE INFORMATION: Exam: CT Abdomen And Pelvis Without Contrast Exam date and time: 11/02/2020 5:18 PM Age: 70 years old Clinical indication: Abdominal pain; Localized; Left lower quadrant (llq); Prior surgery; Surgery type: Hyst; Additional info: Unspecified abdominal pain TECHNIQUE: Imaging protocol: Computed tomography of the abdomen and pelvis without contrast. Radiation optimization: All CT scans at this facility use at least one of these dose optimization techniques: automated exposure control; mA and/or kV adjustment per patient size (includes targeted exams where dose is matched to clinical indication); or iterative reconstruction. COMPARISON: CT abdomen pelvis w con* [id number] 10/13/2020 9:04 AM RADIATION DOSE METRICS: Total DLP (mGy-cm): 1817.19 FINDINGS: Lungs: The visualized lung bases are clear. Liver: Normal size and density. No focal mass. Gallbladder and bile ducts: The gallbladder has been removed. No biliary dilatation. Pancreas: No evidence of mass. No ductal dilation. Spleen: No splenomegaly or mass. Adrenal glands: Normal. Kidneys and ureters: Incidental 1.6 cm low-density left renal cyst does not require further imaging. There is at least 1 additional subcentimeter cyst also appears simple. A 2-3 mm stone in the right kidney and in the left kidney. Stomach and bowel: No evidence of obstruction. No focal bowel wall thickening or mass. No significant diverticula. Appendix: No evidence of appendicitis. Intraperitoneal space: No free air. No free fluid or evidence of abscess. Vasculature: Multiple vascular calcifications. Lymph nodes: No lymphadenopathy. Urinary bladder: Normal CT appearance. Reproductive: Status post hysterectomy. Bones/joints: Severe degenerative changes of the spine. No acute osseous abnormality. Soft tissues: Postsurgical changes of the anterior chest wall. CT/CT abdomen pelvis wo con [id number] IMPRESSION: No acute abnormalities. COMMENTS: Consistent with the [employer]'s Incidental Findings Committee white paper (J Am Cesar Radiol 2018): Any incidental renal lesion less than 1 cm or classified as too small to characterize, or any incidental cystic renal lesion characterized as simple-appearing, is likely benign. No follow-up imaging is recommended for these lesions per consensus recommendations based on imaging criteria. Radiation Dose CTDIVOL = (mGy): DLP = 1817.19 (mGy-cm)
--- NOTE | 2020-11-02 17:07 | CTR_ITS ---
PROCEDURE INFORMATION: Exam: CT Cervical Spine Without Contrast Exam date and time: 11/02/2020 5:18 PM Age: 70 years old Clinical indication: Injury or trauma; Fall; Blunt trauma TECHNIQUE: Imaging protocol: Computed tomography images of the cervical spine without contrast. Radiation optimization: All CT scans at this facility use at least one of these dose optimization techniques: automated exposure control; mA and/or kV adjustment per patient size (includes targeted exams where dose is matched to clinical indication); or iterative reconstruction. COMPARISON: CT cervical spin wo con* [id number] 07/20/2020 6:12 PM RADIATION DOSE METRICS: Total DLP (mGy-cm): 1729.68 FINDINGS: Bones/joints: No acute fracture. Normal alignment. Discs/Spinal canal/Neural foramina: Disc space narrowing with small disc bulges and anterior osteophytosis of C4-C5, C5-C6 and C6-C7. Mild to moderate uncovertebral and facet arthrosis. Mild foraminal stenosis at C3-C4 through C6-C7. No significant canal stenosis. Lungs: Lung apices are normal. Soft tissues: Unremarkable. CT/CT cervical spin wo con* [id number] IMPRESSION: No acute osseous abnormality of the cervical spine. Radiation Dose CTDIVOL = (mGy): DLP = 1729.68 (mGy-cm)
--- NOTE | 2020-11-02 17:07 | XRR_ITS ---
PROCEDURE INFORMATION: Exam: XR Right Ankle Exam date and time: 11/02/2020 5:43 PM Age: 70 years old Clinical indication: Injury or trauma; Fall; Blunt trauma; Ankle; Right TECHNIQUE: Imaging protocol: XR Right ankle. Views: 1 or 2 views. COMPARISON: CR XR ankle RT min 3V* [id number] 07/20/2020 5:37 PM FINDINGS: Bones/joints: No acute displaced fracture or dislocation. Soft tissues: Normal. XR/XR ankle RT 2V [id number] IMPRESSION: No acute displaced fracture or dislocation.
--- NOTE | 2020-11-02 17:13 | W.ED.FALL ---
HPI - Fall General: Chief Complaint: Fall Stated Complaint: FALL Time Seen by Provider: 11/02/20 16:44 History of Present Illness: HPI Narrative: Patient is a 70-year-old female with significant medical history who comes to the ER after a fall. She says she was walking and fell backwards hitting her head on a cabinet, right elbow on the fridge, and left hip on the floor. She complains of pain in a variety of places. She has chronic pain in multiple places however it is severe in her head, neck, right elbow, mid back, lower back, pelvis, right hip, bilateral knees, right ankle Associated symptoms-after fall: Reports neck pain; Denies abdominal pain, chest pain, confusion, difficulty walking or headache(s) Review of Systems General: Reports: 10 or more systems reviewed and unremarkable except in HPI and below Const: Denies: fatigue Eyes: Denies: change in vision, blurry vision or eye redness ENMT: Denies: throat pain, swelling of lips/tongue, ear or mastoid pain or nasal congestion Card: Denies: chest pain, palpitations, irregular heart rhythm, edema, dyspnea on exertion or orthopnea Resp: Denies: dyspnea, productive cough or non-productive cough GI: Denies: abdominal pain, diarrhea or GI cramping : Denies: flank pain, difficulty voiding, urinary frequency or urinary urgency Musc: Reports: neck pain, back pain, extremity pain and joint pain; Denies: joint redness, limited range of motion or muscle weakness Skin/Breast: Denies: rash, pruritus, erythema, skin pain or skin tenderness Neuro: Denies: headache(s), numbness in extremities, weakness in extremities, sensory changes, difficulty walking, dizziness, confusion or Slurred speech present Psych: Denies: anxiety or depression Endo: Denies: polyuria All/Imm: Denies: urticaria, throat swelling or tongue swelling PFSH ED PFSH: Medical History Anxiety and depression CHF exacerbation COPD (chronic obstructive pulmonary disease) Oxygen dependent, 2 L at baseline COVID-14 August 2020 Fibromyalgia Hyperlipidemia Hypertension Hypothyroidism Inflammatory arthritis Intermittent atrial fibrillation Because the patient history of frequent fall she was thought to be high risk for bleeding complications. So she is taking only the aspirin at this time. SHE HAS EASY BRUISING WELL Left renal mass Liver cirrhosis Low back pain of over 3 months duration Lung nodule Narrow complex tachycardia Osteoarthritis of knees, bilateral Poorly controlled diabetes mellitus Recurrent UTI Seronegative rheumatoid arthritis of both hands Unstable angina Urgency incontinence UTI (urinary tract infection) Surgical History History of cardiac cath History of cholecystectomy History of hysterectomy History of knee replacement History of thyroid surgery Family History Other CAD (coronary artery disease) Cancer Denies family history of Anesthesia complication Bleeding disorder Social History Smoking and tobacco status: former smoker Quit status (tobacco): has quit using tobacco Year quit tobacco: 2005 Second hand smoke exposure: No Alcohol intake: never Adopted: No Caregiver/support person: No Lives independently: No Household members: spouse Marital status: Current occupational status: retired History of recent travel: No Current gender identity: Female Physical Exam Const: COMMON NORMALS: no acute distress, average body habitus, patient oriented x3, no limitations, healthy appearing, alert and well nourished GENERAL APPEARANCE: cooperative, comfortable, well kempt and well developed ORIENTATION/CONSCIOUSNESS: Yes awake, Yes oriented to person, Yes oriented to place and Yes oriented to time HENMT: COMMON NORMALS: normocephalic, external ears normal and Normal external nose present HEAD & SCALP: normal to inspection and normocephalic NOSE: Normal external nose present EXTERNAL EAR: Yes external ears normal MOUTH: Normal oral and palatal mucosa present THROAT: posterior oropharynx normal Eye: COMMON NORMALS: Equal, round and reactive pupils present and EOMs intact bilaterally GENERAL EYE: appearance normal, both eyes and all related structures PUPIL: Yes Equal, round and reactive pupils present Neck/C-Spine: COMMON NORMALS: full ROM, no lymphadenopathy, no meningeal signs and no JVD GENERAL: Yes normal visual inspection Lymph: LYMPHATIC: no lymphadenopathy noted Chest: COMMONS NORMALS: normal inspection of the chest and normal palpation of entire chest wall Resp: COMMON NORMALS: normal respiratory effort, No retractions, No use of accessory muscles, clear to auscultation bilaterally and percussion normal EFFORT & INSPECTION: Yes able to speak in complete sentences AUSCULTATION: clear to auscultation bilaterally PERCUSSION: percussion normal Cardio: COMMON NORMALS: no JVD, regular rate, regular rhythm, S1 normal heart sound present, S2 normal heart sound present and Peripheral pulses 2+ throughout RATE: regular rate RHYTHM: regular rhythm HEART SOUNDS: S1 normal heart sound present and S2 normal heart sound present PERIPHERAL PULSES: Peripheral pulses 2+ throughout GI: COMMON NORMALS: Normal to inspection, nondistended, normoactive bowel sounds present, Soft to palpation, non-tender and no masses INSPECTION: Yes normal to inspection PALPATION: Yes Soft to palpation : COMMON NORMALS: Yes no CVA tenderness BLADDER/KIDNEY EXAM: Yes no CVA tenderness Back/Pelvis: COMMON NORMALS: no CVA tenderness, thoracic and lumbar spine normal to inspection and thoraco-lumbar ROM normal OTHER: She has paracervical and paralumbar muscular tenderness. No significant bony tenderness. Extremity: COMMON NORMALS: normal to inspection, full ROM, capillary refill normal, no joint enlargement and no pedal edema NARRATIVE EXTREMITY EXAM: Tenderness to right elbows, bilateral knees, right ankle, left hip. All major ligaments are intact. Range of motion intact. No significant swelling. No bruising. Neurovascularly intact to fingertips and toes bilaterally. GENERAL: Yes normal exam except as noted Neuro: COMMON NORMALS: patient oriented x3, CN's II-XII intact bilaterally, moves all extremities, no focal motor deficits, no sensory deficits noted and gait normal SENSORIUM/ORIENTATION: Yes alert, Yes oriented to person, Yes oriented to place and Yes oriented to time MENINGEAL SIGNS: Yes no meningeal signs Psych: COMMON NORMALS: mental status grossly normal, Normal thought process present, cooperative, normal affect and speech normal APPEARANCE: Yes well kempt ATTITUDE: Yes calm SPEECH: Yes normal speech THOUGHT PROCESS: Normal thought process present Skin: COMMON NORMALS: no rashes or lesions noted GENERAL SKIN EXAM: no rashes or lesions noted Course Vital Signs: Vital signs: Vital Signs Temperature 98.2 F 11/02/20 16:11 Pulse Rate 64 11/02/20 16:11 Respiratory Rate 18 11/02/20 18:31 Blood Pressure 109/66 11/02/20 16:11 Pulse Oximetry 96 11/02/20 16:11 MDM - Fall MDM Narrative: Medical decision making narrative: The patient sustained a fall. Extensive imaging shows no acute injuries. She is stable for discharge. Multiple contusions. Follow-up with primary care physician in a week and get an MRI if she is still in pain. ER with worsening symptoms Discharge Plan Discharge Patient Disposition: Home Clinical Impression: Fall, Contusion of multiple sites Condition: Stable Prescriptions: No Action ferrous gluconate 324 mg (37.5 mg iron) tablet 324 mg PO DAILY@12 RF: 0 sulfasalazine 500 mg tablet 0.5 g PO BID@ Qty: 60 RF: 3 levothyroxine 175 mcg capsule 175 mcg PO DAILY@08 RF: 0 potassium chloride 20 mEq tablet extended release 20 meq PO BID@ RF: 0 atorvastatin [Lipitor] 40 mg Tablet 40 mg PO DAILY@ RF: 0 loperamide [Anti-Diarrheal (loperamide)] 2 mg Tablet 2 - 4 mg PO PRN PRN (Reason: Diarrhea) RF: 0 acetaminophen [Arthritis Pain Reliever] 650 mg Tablet Extended Release 650 mg PO PRN PRN (Reason: Pain) RF: 0 nitroglycerin [Nitrostat] 0.4 mg Tablet, Sublingual 0.4 mg SUBLINGUAL Q5M PRN (Reason: Chest Pain) RF: 0 docusate sodium [Stool Softener] 100 mg Capsule 200 mg PO BID@ RF: 0 zinc 50 mg Tablet 50 mg PO DAILY@12 RF: 0 pyridoxine (vitamin B6) [Vitamin B-6] 100 mg Tablet 100 mg PO DAILY@08 RF: 0 vitamin E 400 unit Capsule 400 unit PO DAILY@08 RF: 0 loratadine 10 mg Tablet 20 mg PO DAILY@08 RF: 0 magnesium L-lactate [Magtab] 84 mg tablet extended release 84 mg PO BID@, RF: 0 cholecalciferol (vitamin D3) [Vitamin D3] 25 mcg (1,000 unit) Tablet 2,000 unit PO DAILY@08 RF: 0 omega 8-qns-szv-fish oil [Ultra Danube-3] 500-1,000 mg Capsule 2 cap PO DAILY@23 RF: 0 folic acid 1 mg tablet 1 mg PO DAILY@08 RF: 0 albuterol sulfate 2.5 mg /3 mL (0.083 %) Solution For Nebulization 2.5 mg inhalation TID PRN (Reason: Shortness Of Breath) RF: 0 aspirin 325 mg Tablet 325 mg PO BEDTIME@0200 RF: 0 Hold Instructions: Resume on 10/18/20. Novolin 70/30 U-100 Insulin 100 unit/mL (70-30) suspension See Rx Instructions .ROUTE .COMPLEX RF: 0 hydrocortisone 2.5 % cream See Rx Instructions .ROUTE .COMPLEX RF: 0 ketoconazole 2 % cream See Rx Instructions .ROUTE .COMPLEX RF: 0 amlodipine 10 mg Tablet 10 mg PO DAILY@08 RF: 0 insulin lispro [Admelog U-100 Insulin lispro] 100 unit/mL Solution See Rx Instructions .ROUTE .COMPLEX RF: 0 metoprolol tartrate 100 mg tablet 100 mg PO Q12H RF: 0 pantoprazole [Protonix] 40 mg tablet,delayed release (DR/EC) 40 mg PO BID@,17 RF: 0 buspirone 10 mg tablet 10 mg PO BID@08,17 RF: 0 aripiprazole [Abilify] 5 mg tablet 5 mg PO DAILY@08 RF: 0 duloxetine [Cymbalta] 30 mg capsule,delayed release(DR/EC) 30 mg PO DAILY@08 RF: 0 duloxetine [Cymbalta] 60 mg capsule,delayed release(DR/EC) 60 mg PO DAILY@08 RF: 0 albuterol sulfate 90 mcg/actuation HFA aerosol inhaler 1 inh inhalation Q6H PRN (Reason: shortness of breath or wheezing) Qty: 18 RF: 0 hydrocodone-acetaminophen 7.5-325 mg tablet 1 tab PO TID@08,17,23 PRN (Reason: pain) RF: 0 furosemide 40 mg Tablet 40 mg PO DAILY@0800 Qty: 30 RF: 0 tramadol 50 mg tablet 100 mg PO BID PRN (Reason: Pain) RF: 0 Vitamin B-12 1 tab PO DAILY@0800 RF: 0 black cohosh 1 tab PO DAILY@0800 RF: 0 pantothenic acid (vit B5) 1 tab PO DAILY@0800 RF: 0 digoxin 125 mcg (0.125 mg) tablet 125 mcg PO DAILY@0800 RF: 0 Discharge Orders: Discharge ED (Routine); Ordered 11/02/20 Ordered By: Rafa Chow Referrals: Ami Perez DO [Primary Care Provider] - Discharge Diet: Advance as tolerated Discharge Activity: Resume usual activity Patient Instructions: Contusion in Adults (ED), Opioid Safety Activity Restrictions/Additional Instructions: You have fallen and sustained multiple bruises. Please give it a few days for them to get better. Return to the ER with worsening symptoms otherwise follow-up with your primary care physician in a week. Get an MRI of anything that still hurts at that time. Coding Level of Care Code ED [facility] Administrator for Dougie Samson
--- NOTE | 2020-11-02 17:15 | XRR_ITS ---
PROCEDURE INFORMATION: Exam: XR Right Elbow Exam date and time: 11/02/2020 5:43 PM Age: 70 years old Clinical indication: Injury or trauma; Fall; Blunt trauma (contusions or hematomas); Elbow; Right TECHNIQUE: Imaging protocol: XR Right elbow. Views: 1 or 2 views. COMPARISON: CR Elbow 2 views, RIGHT [id number] 05/02/2016 5:26 PM FINDINGS: Bones/joints: No acute displaced fracture or dislocation. Soft tissues: Normal. XR/XR elbow RT 2V [id number] IMPRESSION: No acute displaced fracture or dislocation.
[2020-11-02 17:49] VITALS: RESP 15
[2020-11-02 18:00] VITALS: RESP 18
[2020-11-02 18:31] VITALS: RESP 18
--- NOTE | 2020-11-02 19:31 | CTR_ITS ---
PROCEDURE INFORMATION: Exam: CT Chest Without Contrast; Diagnostic Exam date and time: 11/02/2020 7:51 PM Age: 70 years old Clinical indication: Injury or trauma; Fall; Blunt trauma (contusions or hematomas) TECHNIQUE: Imaging protocol: Diagnostic computed tomography of the chest without contrast. Radiation optimization: All CT scans at this facility use at least one of these dose optimization techniques: automated exposure control; mA and/or kV adjustment per patient size (includes targeted exams where dose is matched to clinical indication); or iterative reconstruction. COMPARISON: CT angio chest PE protcl [id number] 08/08/2020 2:18 PM RADIATION DOSE METRICS: Total DLP (mGy-cm): 1061.71 FINDINGS: Lungs: Unremarkable. No consolidation. No masses. Pleural spaces: Unremarkable. No pneumothorax. No pleural effusion. Heart: Several coronary artery calcifications. Aortic annulus and mitral valve annulus calcification. No cardiomegaly or pericardial effusion. Aorta: Unremarkable. No aortic aneurysm. Lymph nodes: Unremarkable. No enlarged lymph nodes. Bones/joints: Unremarkable. No acute fracture. Soft tissues: A 2 cm soft tissue density deep to the left nipple areolar complex. Other findings: Several systemic vascular calcifications. CT/CT chest [facility] [id number] IMPRESSION: 1. No acute injuries of the thorax. 2. A 2 cm soft tissue density deep to the left nipple areolar complex should be correlated with the patient's routine breast imaging. Radiation Dose CTDIVOL = (mGy): DLP = 1061.71 (mGy-cm)
[2020-11-02] MEDS: acetaminophen 325 mg Tablet 650 MG PO (20:33)
[2020-11-02 21:14] VITALS: BP 111/69; PULSE 62; RESP 18; O2SAT 97
== END 2020-11-02 21:14 | disposition home or self-care (01) ==
PROVIDERS: Emergency Provider Family Medicine; PCP Internal Medicine
DX: T07.XXXA Unspecified multiple injuries, initial encounter (principal); Z79.82 Long term (current) use of aspirin; Z79.4 Long term (current) use of insulin; I11.0 Hypertensive heart disease with heart failure; I50.9 Heart failure, unspecified; J44.9 Chronic obstructive pulmonary disease, unspecified; E78.5 Hyperlipidemia, unspecified; I48.91 Unspecified atrial fibrillation; E11.9 Type 2 diabetes mellitus without complications; Z87.891 Personal history of nicotine dependence; W19.XXXA Unspecified fall, initial encounter
CPT/HCPCS: 70450; 71250; 72125; 73070; 73562; 73600; 74176; 99283

== ENCOUNTER 2020-11-15 16:43 | Emergency (ER) | payer MEDICARE, SELFPAY ==
[2020-11-15 17:09] VITALS: BP 124/81; PULSE 94; RESP 14; TEMP 36.9; O2SAT 97; BMI 38.6
--- NOTE | 2020-11-15 17:22 | W.ED.GENADLT ---
HPI - General Adult General: Chief complaint: General Medical Stated complaint: high bp Time Seen by Provider: 11/15/20 17:18 History of Present Illness: Associated symptoms: Deny chest pain, dyspnea, headache(s), nausea, rash, palpitations or vomiting Review of Systems Const: Denies: fever(s), chills or fatigue Eyes: Denies: change in vision or eye discomfort ENMT: Denies: throat pain, odynophagia, nasal discharge or nasal congestion Card: Denies: chest pain, palpitations, edema, swelling of feet/ankles, dyspnea on exertion or orthopnea Resp: Denies: dyspnea, productive cough or non-productive cough GI: Denies: abdominal pain, nausea, vomiting, diarrhea, constipation or hematochezia : Denies: flank pain, dysuria or hematuria Musc: Denies: neck pain, back pain or extremity swelling Skin/Breast: Denies: rash or new lesions Neuro: Denies: headache(s), numbness in extremities or weakness in extremities PFSH ED PFSH: Medical History Anxiety and depression CHF exacerbation COPD (chronic obstructive pulmonary disease) Oxygen dependent, 2 L at baseline COVID-14 August 2020 Fibromyalgia Hyperlipidemia Hypertension Hypothyroidism Inflammatory arthritis Intermittent atrial fibrillation Because the patient history of frequent fall she was thought to be high risk for bleeding complications. So she is taking only the aspirin at this time. SHE HAS EASY BRUISING WELL Left renal mass Liver cirrhosis Low back pain of over 3 months duration Lung nodule Narrow complex tachycardia Osteoarthritis of knees, bilateral Poorly controlled diabetes mellitus Recurrent UTI Seronegative rheumatoid arthritis of both hands Unstable angina Urgency incontinence UTI (urinary tract infection) Surgical History History of cardiac cath History of cholecystectomy History of hysterectomy History of knee replacement History of thyroid surgery Family History Other CAD (coronary artery disease) Cancer Denies family history of Anesthesia complication Bleeding disorder Social History Smoking and tobacco status: former smoker Quit status (tobacco): has quit using tobacco Year quit tobacco: 2005 Second hand smoke exposure: No Alcohol intake: never Adopted: No Caregiver/support person: No Lives independently: No Household members: spouse Marital status: Current occupational status: retired History of recent travel: No Current gender identity: Female Physical Exam Const: COMMON NORMALS: patient oriented x3 HENMT: COMMON NORMALS: normocephalic HEAD & SCALP: normocephalic MOUTH: Normal oral and palatal mucosa present THROAT: posterior oropharynx normal and uvula midline Neck/C-Spine: COMMON NORMALS: supple GENERAL: Yes normal visual inspection Resp: COMMON NORMALS: normal respiratory effort, No retractions, No use of accessory muscles and clear to auscultation bilaterally AUSCULTATION: clear to auscultation bilaterally Cardio: COMMON NORMALS: regular rate, regular rhythm, S1 normal heart sound present, S2 normal heart sound present, No gallops present (Cardio), No clicks present (Cardio), No murmurs present (Cardio) and Peripheral pulses 2+ throughout RATE: regular rate RHYTHM: regular rhythm HEART SOUNDS: S1 normal heart sound present and S2 normal heart sound present PERIPHERAL PULSES: Peripheral pulses 2+ throughout GI: COMMON NORMALS: Normal to inspection, nondistended, normoactive bowel sounds present, Soft to palpation, non-tender and no masses PALPATION: Yes Soft to palpation : COMMON NORMALS: Yes no CVA tenderness BLADDER/KIDNEY EXAM: Yes no CVA tenderness Back/Pelvis: COMMON NORMALS: no CVA tenderness Neuro: COMMON NORMALS: patient oriented x3, CN's II-XII intact bilaterally, moves all extremities, no focal motor deficits and no sensory deficits noted SENSORY EXAM: Yes extremities (intact) MOTOR EXAM: 5/5 motor strength present throughout Course Vital Signs: Vital signs: Vital Signs Temperature 98.5 F 11/15/20 17:09 Pulse Rate 94 11/15/20 17:09 Respiratory Rate 14 11/15/20 17:09 Blood Pressure 124/81 11/15/20 17:09 Pulse Oximetry 97 11/15/20 17:09 Discharge Plan Discharge Condition: Good Prescriptions: No Action ferrous gluconate 324 mg (37.5 mg iron) tablet 324 mg PO DAILY@12 RF: 0 sulfasalazine 500 mg tablet 0.5 g PO BID@ Qty: 60 RF: 3 levothyroxine 175 mcg capsule 175 mcg PO DAILY@08 RF: 0 potassium chloride 20 mEq tablet extended release 20 meq PO BID@ RF: 0 hydralazine 25 mg tablet 25 mg PO TID Qty: 270 RF: 3 atorvastatin [Lipitor] 40 mg Tablet 40 mg PO DAILY@ RF: 0 loperamide [Anti-Diarrheal (loperamide)] 2 mg Tablet 2 - 4 mg PO PRN PRN (Reason: Diarrhea) RF: 0 acetaminophen [Arthritis Pain Reliever] 650 mg Tablet Extended Release 650 mg PO PRN PRN (Reason: Pain) RF: 0 nitroglycerin [Nitrostat] 0.4 mg Tablet, Sublingual 0.4 mg SUBLINGUAL Q5M PRN (Reason: Chest Pain) RF: 0 docusate sodium [Stool Softener] 100 mg Capsule 200 mg PO BID@, RF: 0 zinc 50 mg Tablet 50 mg PO DAILY@12 RF: 0 pyridoxine (vitamin B6) [Vitamin B-6] 100 mg Tablet 100 mg PO DAILY@08 RF: 0 vitamin E 400 unit Capsule 400 unit PO DAILY@08 RF: 0 loratadine 10 mg Tablet 20 mg PO DAILY@08 RF: 0 magnesium L-lactate [Magtab] 84 mg tablet extended release 84 mg PO BID@, RF: 0 cholecalciferol (vitamin D3) [Vitamin D3] 25 mcg (1,000 unit) Tablet 2,000 unit PO DAILY@08 RF: 0 omega 8-trh-vij-fish oil [Ultra Nunda-3] 500-1,000 mg Capsule 2 cap PO DAILY@23 RF: 0 folic acid 1 mg tablet 1 mg PO DAILY@08 RF: 0 albuterol sulfate 2.5 mg /3 mL (0.083 %) Solution For Nebulization 2.5 mg inhalation TID PRN (Reason: Shortness Of Breath) RF: 0 aspirin 325 mg Tablet 325 mg PO BEDTIME@0200 RF: 0 Hold Instructions: Resume on 10/18/20. Novolin 70/30 U-100 Insulin 100 unit/mL (70-30) suspension See Rx Instructions .ROUTE .COMPLEX RF: 0 hydrocortisone 2.5 % cream See Rx Instructions .ROUTE .COMPLEX RF: 0 ketoconazole 2 % cream See Rx Instructions .ROUTE .COMPLEX RF: 0 amlodipine 10 mg Tablet 10 mg PO DAILY@08 RF: 0 insulin lispro [Admelog U-100 Insulin lispro] 100 unit/mL Solution See Rx Instructions .ROUTE .COMPLEX RF: 0 metoprolol tartrate 100 mg tablet 100 mg PO Q12H RF: 0 pantoprazole [Protonix] 40 mg tablet,delayed release (DR/EC) 40 mg PO BID@08,17 RF: 0 buspirone 10 mg tablet 10 mg PO BID@08,17 RF: 0 aripiprazole [Abilify] 5 mg tablet 5 mg PO DAILY@08 RF: 0 duloxetine [Cymbalta] 30 mg capsule,delayed release(DR/EC) 30 mg PO DAILY@08 RF: 0 duloxetine [Cymbalta] 60 mg capsule,delayed release(DR/EC) 60 mg PO DAILY@08 RF: 0 albuterol sulfate 90 mcg/actuation HFA aerosol inhaler 1 inh inhalation Q6H PRN (Reason: shortness of breath or wheezing) Qty: 18 RF: 0 hydrocodone-acetaminophen 7.5-325 mg tablet 1 tab PO TID@08,17,23 PRN (Reason: pain) RF: 0 furosemide 40 mg Tablet 40 mg PO DAILY@0800 Qty: 30 RF: 0 tramadol 50 mg tablet 100 mg PO BID PRN (Reason: Pain) RF: 0 Vitamin B-12 1 tab PO DAILY@0800 RF: 0 black cohosh 1 tab PO DAILY@0800 RF: 0 pantothenic acid (vit B5) 1 tab PO DAILY@0800 RF: 0 digoxin 125 mcg (0.125 mg) tablet 125 mcg PO .every other day RF: 0 Coding Level of Care Code ED [employer] Manager for Dougie Samson
--- NOTE | 2020-11-15 17:26 | XRR_ITS ---
PROCEDURE INFORMATION: Exam: XR Chest Exam date and time: 11/15/2020 5:40 PM Age: 70 years old Clinical indication: Cough and dyspnea; Patient HX: High blood pressure; Additional info: Dyspnea/cough TECHNIQUE: Imaging protocol: XR of the chest Views: 1 view. COMPARISON: CT chest con [id number] 11/02/2020 8:20 PM FINDINGS: Lungs: Unremarkable. No consolidation. Pleural spaces: Unremarkable. No pleural effusion. No pneumothorax. Heart/Mediastinum: The heart size is borderline. Bones/joints: Unremarkable. XR/XR chest 1V portable [id number] IMPRESSION: No acute findings.
--- NOTE | 2020-11-15 17:26 | W.ED.GENADLT ---
Documented by User: Kenrick Treviño DO 11/19/20 14:00 HPI - General Adult General: Chief complaint: General Medical Stated complaint: high bp Time Seen by Provider: 11/15/20 17:18 History of Present Illness: HPI narrative: 70-year-old female presents emergency room with complaint of generally not feeling well and elevated blood pressure. She recently had decrease her hydralazine had stopped it was asked to restarted at half strength by her cruise director but she has not yet done so. She has some chest discomfort shortness of breath and nausea with it as well though she does not identify any particular precipitating activities. Onset (ago): day(s) Severity: mild Relieving factors: none Exacerbating factors: none Associated symptoms: Deny chest pain, confusion, cough, diaphoresis, decreased appetite, dyspnea, fevers/chills, headache(s), malaise, nausea, rash, palpitations, seizures, short of breath, syncope, vomiting or weakness Treatments prior to arrival: none Review of Systems Const: Denies: malaise or diaphoresis ENMT: Denies: throat pain, ear or mastoid pain, nasal discharge or nasal congestion Card: Denies: chest pain, palpitations or syncope Resp: Denies: dyspnea GI: Denies: nausea or vomiting : Denies: flank pain, difficulty voiding, dysuria, urinary frequency or urinary urgency Skin/Breast: Denies: rash Neuro: Denies: headache(s) or confusion [facility] PFSH: Medical History (Updated 11/17/20 @ 10:48 by Michael Lozano MD) Anxiety and depression CHF exacerbation Chronic knee pain Chronic low back pain COPD (chronic obstructive pulmonary disease) Oxygen dependent, 2 L at baseline COVID-14 August 2020 Fibromyalgia Hyperlipidemia Hypertension Hypothyroidism Inflammatory arthritis Intermittent atrial fibrillation Because the patient history of frequent fall she was thought to be high risk for bleeding complications. So she is taking only the aspirin at this time. SHE HAS EASY BRUISING WELL Left renal mass Liver cirrhosis Low back pain of over 3 months duration Lung nodule Narrow complex tachycardia Osteoarthritis of knees, bilateral Poorly controlled diabetes mellitus Recurrent UTI Seronegative rheumatoid arthritis of both hands Unstable angina Urgency incontinence UTI (urinary tract infection) Surgical History History of cardiac cath History of cholecystectomy History of hysterectomy History of knee replacement History of thyroid surgery Family History Other CAD (coronary artery disease) Cancer Denies family history of Anesthesia complication Bleeding disorder Social History (Updated 11/17/20 @ 10:29 by Lisa Berrios LPN) Smoking and tobacco status: former smoker Quit status (tobacco): has quit using tobacco Year quit tobacco: 2005 Second hand smoke exposure: No Alcohol intake: never Adopted: No Caregiver/support person: No Lives independently: No Household members: spouse Marital status: Current occupational status: retired History of recent travel: No Current gender identity: Female Physical Exam Const: COMMON NORMALS: no acute distress GENERAL APPEARANCE: cooperative and comfortable ORIENTATION/CONSCIOUSNESS: Yes awake, Yes oriented to person, Yes oriented to place and Yes oriented to time HENMT: COMMON NORMALS: normocephalic, atraumatic and hearing grossly normal bilaterally HEAD & SCALP: normocephalic and atraumatic Eye: COMMON NORMALS: Equal, round and reactive pupils present, EOMs intact bilaterally, conjunctivae normal and no scleral icterus CONJUNCTIVA: Yes conjunctivae normal PUPIL: Yes Equal, round and reactive pupils present Neck/C-Spine: COMMON NORMALS: full ROM, no lymphadenopathy, supple and no JVD Lymph: LYMPHATIC: no lymphadenopathy noted and no lymphedema noted Resp: COMMON NORMALS: normal respiratory effort, No retractions, No use of accessory muscles and clear to auscultation bilaterally AUSCULTATION: clear to auscultation bilaterally Cardio: COMMON NORMALS: no JVD, regular rate, regular rhythm and No murmurs present (Cardio) RATE: regular rate RHYTHM: regular rhythm GI: COMMON NORMALS: Soft to palpation and No hepatosplenomegaly present AUSCULTATION: Yes normoactive bowel sounds PALPATION: Yes Soft to palpation, No Tenderness to palpation present (GI), No Guarding due to palpation present (GI) and Yes No hepatosplenomegaly present Extremity: COMMON NORMALS: normal to inspection, capillary refill normal, no clubbing, cyanosis or edema, no calf tenderness and no pedal edema Neuro: SENSORIUM/ORIENTATION: Yes oriented to person, Yes oriented to place and Yes oriented to time Skin: COMMON NORMALS: no rashes or lesions noted GENERAL SKIN EXAM: no rashes or lesions noted Course Vital Signs: Vital signs: Vital Signs Temperature 98.5 F 11/15/20 17:09 Pulse Rate 102 H 11/15/20 19:30 Respiratory Rate 18 11/15/20 19:30 Blood Pressure 122/86 11/15/20 19:30 Pulse Oximetry 96 11/15/20 19:30 MDM - General Adult MDM Narrative: Medical decision making narrative: Care handed over to Dr. Snow at change of shift see her notes for final diagnosis and disposition Lab Data: Labs: Lab Results 11/15/20 11/15/20 11/15/20 Range/Units 17:37 17:37 17:37 WBC 8.1 (4.0-10.0) 10^3/ uL RBC 4.01 L (4.1-5.3) 10^6/u L Hgb 12.1 (11.5-15.3) g/dL Hct 38.4 (37.0-47.0) % MCV 95.8 (81-99) fL MCH 30.2 (28.0-34.0) pg MCHC 31.5 (30.0-36.0) g/dL RDW 14.5 (12.1-15.1) % Plt Count 205 (130-400) 10^3/c mm MPV 9.5 (7.4-10.4) fL Neut % (Auto) 72.5 % Lymph % (Auto) 15.8 % Terrell % (Auto) 9.2 % Eos % (Auto) 1.2 % Baso % (Auto) 0.7 % Neut # (Auto) 5.89 (1.8-7.7) 10^3/u L Lymph # (Auto) 1.3 (0.8-4.8) 10^3/u L Terrell # (Auto) 0.8 (0.2-0.9) 10^3/u L Eos # (Auto) 0.1 (0.0-0.8) 10^3/u L Baso # (Auto) 0.1 (0.0-0.1) 10^3/u L Nucleated RBC % (a uto) 0 % Nucleated RBCs # 0.0 /100WBC Sodium 143 (136-145) mmol/L Potassium 3.5 (3.5-5.1) mmol/L Chloride 95 L (98-107) mmol/L Carbon Dioxide 38 H (22-29) mmol/L Anion Gap 13.5 (5-19) BUN 14 (8-23) mg/dL Creatinine 1.0 H (0.5-0.9) mg/dL GFR Calculation Not Reportable Glucose 260 H (65-115) mg/dL Calculated Osmolal ity 305 H (285-295) mOsm/k g Calcium 10.4 (8.5-10.5) mg/dL Total Bilirubin 0.4 (0.15-1.2) mg/dL AST 45 H (0-32) U/L ALT 27 (0-33) U/L Alkaline Phosphata se 126 H (35-105) IU/L Creatine Kinase 41 (26-192) U/L Troponin T Baselin e (0-10) ng/L Troponin T 120 Min qagan tayagungin (0-10) ng/L Delta Troponin T (0-10) ABS# Total Protein 7.8 (6.6-8.7) g/dL Albumin 4.0 (3.5-5.2) g/dL Globulin 3.8 (1.3-4.6) g/dL Urine Color (Yellow) Urine Appearance (CLEAR) Urine pH (5-7) Ur Specific Gravit y (1.005-1.030) Urine Protein (Negative) Urine Glucose (UA) (Normal) Urine Ketones (Negative) Urine Blood (Negative) Urine Nitrate (Negative) Urine Bilirubin (Negative) Urine Urobilinogen (Negative) mg/dL Ur Leukocyte Dorota ase (Negative) Urine RBC (0-2) /hpf Urine WBC (0-5) /hpf Ur Squamous Epith Cells (0-5) /hpf Amorphous Sediment Urine Bacteria (NONE) /hpf Hyaline Casts /lpf Urine Mucus /hpf Digoxin (0.6-1.2) ng/mL 11/15/20 11/15/20 11/15/20 Range/Units 17:37 18:20 18:30 WBC (4.0-10.0) 10^3/ uL RBC (4.1-5.3) 10^6/u L Hgb (11.5-15.3) g/dL Hct (37.0-47.0) % MCV (81-99) fL MCH (28.0-34.0) pg MCHC (30.0-36.0) g/dL RDW (12.1-15.1) % Plt Count (130-400) 10^3/c mm MPV (7.4-10.4) fL Neut % (Auto) % Lymph % (Auto) % Terrell % (Auto) % Eos % (Auto) % Baso % (Auto) % Neut # (Auto) (1.8-7.7) 10^3/u L Lymph # (Auto) (0.8-4.8) 10^3/u L Terrell # (Auto) (0.2-0.9) 10^3/u L Eos # (Auto) (0.0-0.8) 10^3/u L Baso # (Auto) (0.0-0.1) 10^3/u L Nucleated RBC % (a uto) % Nucleated RBCs # /100WBC Sodium (136-145) mmol/L Potassium (3.5-5.1) mmol/L Chloride (98-107) mmol/L Carbon Dioxide (22-29) mmol/L Anion Gap (5-19) BUN (8-23) mg/dL Creatinine (0.5-0.9) mg/dL GFR Calculation Glucose (65-115) mg/dL Calculated Osmolal ity (285-295) mOsm/k g Calcium (8.5-10.5) mg/dL Total Bilirubin (0.15-1.2) mg/dL AST (0-32) U/L ALT (0-33) U/L Alkaline Phosphata se (35-105) IU/L Creatine Kinase (26-192) U/L Troponin T Baselin e 36 H (0-10) ng/L Troponin T 120 Min qagan tayagungin (0-10) ng/L Delta Troponin T (0-10) ABS# Total Protein (6.6-8.7) g/dL Albumin (3.5-5.2) g/dL Globulin (1.3-4.6) g/dL Urine Color Dark yellow (Yellow) Urine Appearance Clear (CLEAR) Urine pH 6 (5-7) Ur Specific Gravit y 1.015 (1.005-1.030) Urine Protein 1+ H (Negative) Urine Glucose (UA) Norm (Normal) Urine Ketones 1+ H (Negative) Urine Blood Neg (Negative) Urine Nitrate Negative (Negative) Urine Bilirubin 1+ H (Negative) Urine Urobilinogen Norm (Negative) mg/dL Ur Leukocyte Dorota ase Negative (Negative) Urine RBC None (0-2) /hpf Urine WBC 0-4 H (0-5) /hpf Ur Squamous Epith Cells 5-10 H (0-5) /hpf Amorphous Sediment Not Reportable Urine Bacteria 1+ H (NONE) /hpf Hyaline Casts 25-40 H /lpf Urine Mucus 2+ /hpf Digoxin 1.0 (0.6-1.2) ng/mL 11/15/20 Range/Units 18:30 WBC (4.0-10.0) 10^3/ uL RBC (4.1-5.3) 10^6/u L Hgb (11.5-15.3) g/dL Hct (37.0-47.0) % MCV (81-99) fL MCH (28.0-34.0) pg MCHC (30.0-36.0) g/dL RDW (12.1-15.1) % Plt Count (130-400) 10^3/c mm MPV (7.4-10.4) fL Neut % (Auto) % Lymph % (Auto) % Terrell % (Auto) % Eos % (Auto) % Baso % (Auto) % Neut # (Auto) (1.8-7.7) 10^3/u L Lymph # (Auto) (0.8-4.8) 10^3/u L Terrell # (Auto) (0.2-0.9) 10^3/u L Eos # (Auto) (0.0-0.8) 10^3/u L Baso # (Auto) (0.0-0.1) 10^3/u L Nucleated RBC % (a uto) % Nucleated RBCs # /100WBC Sodium (136-145) mmol/L Potassium (3.5-5.1) mmol/L Chloride (98-107) mmol/L Carbon Dioxide (22-29) mmol/L Anion Gap (5-19) BUN (8-23) mg/dL Creatinine (0.5-0.9) mg/dL GFR Calculation Glucose (65-115) mg/dL Calculated Osmolal ity (285-295) mOsm/k g Calcium (8.5-10.5) mg/dL Total Bilirubin (0.15-1.2) mg/dL AST (0-32) U/L ALT (0-33) U/L Alkaline Phosphata se (35-105) IU/L Creatine Kinase (26-192) U/L Troponin T Baselin e (0-10) ng/L Troponin T 120 Min qagan tayagung[place] 34.56 H (0-10) ng/L Delta Troponin T -1.44 L (0-10) ABS# Total Protein (6.6-8.7) g/dL Albumin (3.5-5.2) g/dL Globulin (1.3-4.6) g/dL Urine Color (Yellow) Urine Appearance (CLEAR) Urine pH (5-7) Ur Specific Gravit y (1.005-1.030) Urine Protein (Negative) Urine Glucose (UA) (Normal) Urine Ketones (Negative) Urine Blood (Negative) Urine Nitrate (Negative) Urine Bilirubin (Negative) Urine Urobilinogen (Negative) mg/dL Ur Leukocyte Dorota ase (Negative) Urine RBC (0-2) /hpf Urine WBC (0-5) /hpf Ur Squamous Epith Cells (0-5) /hpf Amorphous Sediment Urine Bacteria (NONE) /hpf Hyaline Casts /lpf Urine Mucus /hpf Digoxin (0.6-1.2) ng/mL EKG Data^: EKG 1: Computer generated interpretation: Chest X-Ray 11/15/20 17:26 IMPRESSION: No acute findings. Head CT 11/15/20 17:26 IMPRESSION: 1. Positioning mildly limits exam. 2. Given limitation, no acute intracranial abnormality. Radiation Dose CTDIVOL = (mGy): DLP = 782.03 (mGy-cm) Discharge Plan Discharge Patient Disposition: Home Clinical Impression: Weakness, Atrial fibrillation Condition: Stable Prescriptions: No Action ferrous gluconate 324 mg (37.5 mg iron) tablet 324 mg PO DAILY@12 RF: 0 sulfasalazine 500 mg tablet 0.5 g PO BID@ Qty: 60 RF: 3 hydrocodone-acetaminophen 7.5-325 mg tablet 1 tab PO TID PRN (Reason: pain) 30 Days Qty: 90 RF: 0 hydrocodone-acetaminophen 7.5-325 mg tablet 1 tab PO TID@,,23 PRN (Reason: pain) 30 Days Qty: 90 RF: 0 tramadol 50 mg tablet 100 mg PO BID PRN (Reason: Pain) 30 Days Qty: 180 RF: 1 tizanidine 4 mg tablet 4 mg PO TID PRN (Reason: muscle spasticity) 30 Days Qty: 90 RF: 0 levothyroxine 175 mcg capsule 175 mcg PO DAILY@08 RF: 0 potassium chloride 20 mEq tablet extended release 20 meq PO BID@, RF: 0 atorvastatin [Lipitor] 40 mg Tablet 40 mg PO DAILY@0800 RF: 0 loperamide [Anti-Diarrheal (loperamide)] 2 mg Tablet 2 - 4 mg PO PRN PRN (Reason: Diarrhea) RF: 0 acetaminophen [Arthritis Pain Reliever] 650 mg Tablet Extended Release 650 mg PO PRN PRN (Reason: Pain) RF: 0 nitroglycerin [Nitrostat] 0.4 mg Tablet, Sublingual 0.4 mg SUBLINGUAL Q5M PRN (Reason: Chest Pain) RF: 0 docusate sodium [Stool Softener] 100 mg Capsule 200 mg PO BID@, RF: 0 zinc 50 mg Tablet 50 mg PO DAILY@12 RF: 0 pyridoxine (vitamin B6) [Vitamin B-6] 100 mg Tablet 100 mg PO DAILY@08 RF: 0 vitamin E 400 unit Capsule 400 unit PO DAILY@08 RF: 0 loratadine 10 mg Tablet 20 mg PO DAILY@08 RF: 0 magnesium L-lactate [Magtab] 84 mg tablet extended release 84 mg PO BID@, RF: 0 cholecalciferol (vitamin D3) [Vitamin D3] 25 mcg (1,000 unit) Tablet 2,000 unit PO DAILY@08 RF: 0 omega 6-gse-hnu-fish oil [Ultra Lowber-3] 500-1,000 mg Capsule 2 cap PO DAILY@23 RF: 0 folic acid 1 mg tablet 1 mg PO DAILY@08 RF: 0 albuterol sulfate 2.5 mg /3 mL (0.083 %) Solution For Nebulization 2.5 mg inhalation TID PRN (Reason: Shortness Of Breath) RF: 0 aspirin 325 mg Tablet 325 mg PO BEDTIME@1999 RF: 0 Hold Instructions: Resume on 10/18/20. Novolin 70/30 U-100 Insulin 100 unit/mL (70-30) suspension See Rx Instructions .ROUTE .COMPLEX RF: 0 hydrocortisone 2.5 % cream See Rx Instructions .ROUTE .COMPLEX RF: 0 ketoconazole 2 % cream See Rx Instructions .ROUTE .COMPLEX RF: 0 methotrexate sodium 2.5 mg tablet 2.5 mg PO BID@0800,1999 RF: 0 hydralazine 25 mg tablet 25 mg PO TID@0800,1200,1999 RF: 0 amlodipine 10 mg Tablet 10 mg PO DAILY@08 RF: 0 insulin lispro [Admelog U-100 Insulin lispro] 100 unit/mL Solution See Rx Instructions .ROUTE .COMPLEX RF: 0 metoprolol tartrate 100 mg tablet 100 mg PO Q12H RF: 0 pantoprazole [Protonix] 40 mg tablet,delayed release (DR/EC) 40 mg PO BID@08,17 RF: 0 buspirone 10 mg tablet 10 mg PO BID@08,17 RF: 0 aripiprazole [Abilify] 5 mg tablet 5 mg PO DAILY@08 RF: 0 duloxetine [Cymbalta] 30 mg capsule,delayed release(DR/EC) 30 mg PO DAILY@08 RF: 0 duloxetine [Cymbalta] 60 mg capsule,delayed release(DR/EC) 60 mg PO DAILY@08 RF: 0 albuterol sulfate 90 mcg/actuation HFA aerosol inhaler 1 inh inhalation Q6H PRN (Reason: shortness of breath or wheezing) Qty: 18 RF: 0 furosemide 40 mg Tablet 40 mg PO DAILY@0800 Qty: 30 RF: 0 Vitamin B-12 1 tab PO DAILY@0800 RF: 0 black cohosh 1 tab PO BID@08,1999 RF: 0 digoxin 125 mcg (0.125 mg) tablet 125 mcg PO .every other day RF: 0 Discharge Orders: Discharge ED (Routine); Ordered 11/15/20 Ordered By: Karma Garner Referrals: Ami Perez DO [Primary Care Provider] - 1-3 days Discharge Diet: Advance as tolerated Discharge Activity: Resume usual activity Patient Instructions: Weakness (ED) Coding Level of Care Code ED Furnace Tender for Chg Fwd Documented by User: Karma Garner MD 11/15/20 19:26 HPI - General Adult General: Chief complaint: General Medical Stated complaint: high bp Time Seen by Provider: 11/15/20 17:18 [facility] PFSH: Medical History (Updated 11/17/20 @ 10:48 by Michael Lozano MD) Anxiety and depression CHF exacerbation Chronic knee pain Chronic low back pain COPD (chronic obstructive pulmonary disease) Oxygen dependent, 2 L at baseline COVID-14 August 2020 Fibromyalgia Hyperlipidemia Hypertension Hypothyroidism Inflammatory arthritis Intermittent atrial fibrillation Because the patient history of frequent fall she was thought to be high risk for bleeding complications. So she is taking only the aspirin at this time. SHE HAS EASY BRUISING WELL Left renal mass Liver cirrhosis Low back pain of over 3 months duration Lung nodule Narrow complex tachycardia Osteoarthritis of knees, bilateral Poorly controlled diabetes mellitus Recurrent UTI Seronegative rheumatoid arthritis of both hands Unstable angina Urgency incontinence UTI (urinary tract infection) Surgical History History of cardiac cath History of cholecystectomy History of hysterectomy History of knee replacement History of thyroid surgery Family History Other CAD (coronary artery disease) Cancer Denies family history of Anesthesia complication Bleeding disorder Social History (Updated 11/17/20 @ 10:29 by Lisa Berrios LPN) Smoking and tobacco status: former smoker Quit status (tobacco): has quit using tobacco Year quit tobacco: 2005 Second hand smoke exposure: No Alcohol intake: never Adopted: No Caregiver/support person: No Lives independently: No Household members: spouse Marital status: Current occupational status: retired History of recent travel: No Current gender identity: Female Course Vital Signs: Vital signs: Vital Signs Temperature 98.5 F 11/15/20 17:09 Pulse Rate 102 H 11/15/20 19:30 Respiratory Rate 18 11/15/20 19:30 Blood Pressure 122/86 11/15/20 19:30 Pulse Oximetry 96 11/15/20 19:30 MDM - General Adult MDM Narrative: Medical decision making narrative: 70-year-old female resents with weakness. She is in A. fib and has a history of A. fib. She is currently on digoxin. I gave her Cardizem and her heart rates in the 80s. She feels improved and her blood work here is all normal. She is to follow-up with her PCP in 3 to 5 days and return if worsening. Lab Data: Labs: Lab Results 11/15/20 11/15/20 11/15/20 Range/Units 17:37 17:37 17:37 WBC 8.1 (4.0-10.0) 10^3/ uL RBC 4.01 L (4.1-5.3) 10^6/u L Hgb 12.1 (11.5-15.3) g/dL Hct 38.4 (37.0-47.0) % MCV 95.8 (81-99) fL MCH 30.2 (28.0-34.0) pg MCHC 31.5 (30.0-36.0) g/dL RDW 14.5 (12.1-15.1) % Plt Count 205 (130-400) 10^3/c mm MPV 9.5 (7.4-10.4) fL Neut % (Auto) 72.5 % Lymph % (Auto) 15.8 % Terrell % (Auto) 9.2 % Eos % (Auto) 1.2 % Baso % (Auto) 0.7 % Neut # (Auto) 5.89 (1.8-7.7) 10^3/u L Lymph # (Auto) 1.3 (0.8-4.8) 10^3/u L Terrell # (Auto) 0.8 (0.2-0.9) 10^3/u L Eos # (Auto) 0.1 (0.0-0.8) 10^3/u L Baso # (Auto) 0.1 (0.0-0.1) 10^3/u L Nucleated RBC % (a uto) 0 % Nucleated RBCs # 0.0 /100WBC Sodium 143 (136-145) mmol/L Potassium 3.5 (3.5-5.1) mmol/L Chloride 95 L (98-107) mmol/L Carbon Dioxide 38 H (22-29) mmol/L Anion Gap 13.5 (5-19) BUN 14 (8-23) mg/dL Creatinine 1.0 H (0.5-0.9) mg/dL GFR Calculation Not Reportable Glucose 260 H (65-115) mg/dL Calculated Osmolal ity 305 H (285-295) mOsm/k g Calcium 10.4 (8.5-10.5) mg/dL Total Bilirubin 0.4 (0.15-1.2) mg/dL AST 45 H (0-32) U/L ALT 27 (0-33) U/L Alkaline Phosphata se 126 H (35-105) IU/L Creatine Kinase 41 (26-192) U/L Troponin T Baselin e (0-10) ng/L Troponin T 120 Min qagan tayagung[place] (0-10) ng/L Delta Troponin T (0-10) ABS# Total Protein 7.8 (6.6-8.7) g/dL Albumin 4.0 (3.5-5.2) g/dL Globulin 3.8 (1.3-4.6) g/dL Urine Color (Yellow) Urine Appearance (CLEAR) Urine pH (5-7) Ur Specific Gravit y (1.005-1.030) Urine Protein (Negative) Urine Glucose (UA) (Normal) Urine Ketones (Negative) Urine Blood (Negative) Urine Nitrate (Negative) Urine Bilirubin (Negative) Urine Urobilinogen (Negative) mg/dL Ur Leukocyte Dorota ase (Negative) Urine RBC (0-2) /hpf Urine WBC (0-5) /hpf Ur Squamous Epith Cells (0-5) /hpf Amorphous Sediment Urine Bacteria (NONE) /hpf Hyaline Casts /lpf Urine Mucus /hpf Digoxin (0.6-1.2) ng/mL 11/15/20 11/15/20 11/15/20 Range/Units 17:37 18:20 18:30 WBC (4.0-10.0) 10^3/ uL RBC (4.1-5.3) 10^6/u L Hgb (11.5-15.3) g/dL Hct (37.0-47.0) % MCV (81-99) fL MCH (28.0-34.0) pg MCHC (30.0-36.0) g/dL RDW (12.1-15.1) % Plt Count (130-400) 10^3/c mm MPV (7.4-10.4) fL Neut % (Auto) % Lymph % (Auto) % Terrell % (Auto) % Eos % (Auto) % Baso % (Auto) % Neut # (Auto) (1.8-7.7) 10^3/u L Lymph # (Auto) (0.8-4.8) 10^3/u L Terrell # (Auto) (0.2-0.9) 10^3/u L Eos # (Auto) (0.0-0.8) 10^3/u L Baso # (Auto) (0.0-0.1) 10^3/u L Nucleated RBC % (a uto) % Nucleated RBCs # /100WBC Sodium (136-145) mmol/L Potassium (3.5-5.1) mmol/L Chloride (98-107) mmol/L Carbon Dioxide (22-29) mmol/L Anion Gap (5-19) BUN (8-23) mg/dL Creatinine (0.5-0.9) mg/dL GFR Calculation Glucose (65-115) mg/dL Calculated Osmolal ity (285-295) mOsm/k g Calcium (8.5-10.5) mg/dL Total Bilirubin (0.15-1.2) mg/dL AST (0-32) U/L ALT (0-33) U/L Alkaline Phosphata se (35-105) IU/L Creatine Kinase (26-192) U/L Troponin T Baselin e 36 H (0-10) ng/L Troponin T 120 Min qagan tayagung[place] (0-10) ng/L Delta Troponin T (0-10) ABS# Total Protein (6.6-8.7) g/dL Albumin (3.5-5.2) g/dL Globulin (1.3-4.6) g/dL Urine Color Dark yellow (Yellow) Urine Appearance Clear (CLEAR) Urine pH 6 (5-7) Ur Specific Gravit y 1.015 (1.005-1.030) Urine Protein 1+ H (Negative) Urine Glucose (UA) Norm (Normal) Urine Ketones 1+ H (Negative) Urine Blood Neg (Negative) Urine Nitrate Negative (Negative) Urine Bilirubin 1+ H (Negative) Urine Urobilinogen Norm (Negative) mg/dL Ur Leukocyte Dorota ase Negative (Negative) Urine RBC None (0-2) /hpf Urine WBC 0-4 H (0-5) /hpf Ur Squamous Epith Cells 5-10 H (0-5) /hpf Amorphous Sediment Not Reportable Urine Bacteria 1+ H (NONE) /hpf Hyaline Casts 25-40 H /lpf Urine Mucus 2+ /hpf Digoxin 1.0 (0.6-1.2) ng/mL 11/15/20 Range/Units 18:30 WBC (4.0-10.0) 10^3/ uL RBC (4.1-5.3) 10^6/u L Hgb (11.5-15.3) g/dL Hct (37.0-47.0) % MCV (81-99) fL MCH (28.0-34.0) pg MCHC (30.0-36.0) g/dL RDW (12.1-15.1) % Plt Count (130-400) 10^3/c mm MPV (7.4-10.4) fL Neut % (Auto) % Lymph % (Auto) % Terrell % (Auto) % Eos % (Auto) % Baso % (Auto) % Neut # (Auto) (1.8-7.7) 10^3/u L Lymph # (Auto) (0.8-4.8) 10^3/u L Terrell # (Auto) (0.2-0.9) 10^3/u L Eos # (Auto) (0.0-0.8) 10^3/u L Baso # (Auto) (0.0-0.1) 10^3/u L Nucleated RBC % (a uto) % Nucleated RBCs # /100WBC Sodium (136-145) mmol/L Potassium (3.5-5.1) mmol/L Chloride (98-107) mmol/L Carbon Dioxide (22-29) mmol/L Anion Gap (5-19) BUN (8-23) mg/dL Creatinine (0.5-0.9) mg/dL GFR Calculation Glucose (65-115) mg/dL Calculated Osmolal ity (285-295) mOsm/k g Calcium (8.5-10.5) mg/dL Total Bilirubin (0.15-1.2) mg/dL AST (0-32) U/L ALT (0-33) U/L Alkaline Phosphata se (35-105) IU/L Creatine Kinase (26-192) U/L Troponin T Baselin e (0-10) ng/L Troponin T 120 Min qagan tayagung[place] 34.56 H (0-10) ng/L Delta Troponin T -1.44 L (0-10) ABS# Total Protein (6.6-8.7) g/dL Albumin (3.5-5.2) g/dL Globulin (1.3-4.6) g/dL Urine Color (Yellow) Urine Appearance (CLEAR) Urine pH (5-7) Ur Specific Gravit y (1.005-1.030) Urine Protein (Negative) Urine Glucose (UA) (Normal) Urine Ketones (Negative) Urine Blood (Negative) Urine Nitrate (Negative) Urine Bilirubin (Negative) Urine Urobilinogen (Negative) mg/dL Ur Leukocyte Dorota ase (Negative) Urine RBC (0-2) /hpf Urine WBC (0-5) /hpf Ur Squamous Epith Cells (0-5) /hpf Amorphous Sediment Urine Bacteria (NONE) /hpf Hyaline Casts /lpf Urine Mucus /hpf Digoxin (0.6-1.2) ng/mL Imaging Data^: CT Head: Attestation: I personally reviewed and interpreted this imaging study as follows: Radiologist's impression: [address] [address] [address] Scan Report Signed Patient: Myesha Parker Unit #: [id number] : 1950 Age/Sex: 70 / F ADM Date: 11/15/20 Loc: ER Room/Bed: Attending Dr: Ordering Provider/Ordering MD: Kenrick Treviño DO Date of Service: 11/15/20 Procedure(s): CT head wo con* [id number] Accession Number(s): [id number] Report Number: [id number] PROCEDURE INFORMATION: Exam: CT Head Without Contrast Exam date and time: 11/15/2020 5:26 PM Age: 70 years old Clinical indication: Altered mental status/memory loss; Additional info: Confusion/ams TECHNIQUE: Imaging protocol: Computed tomography of the head without contrast. Radiation optimization: All CT scans at this facility use at least one of these dose optimization techniques: automated exposure control; mA and/or kV adjustment per patient size (includes targeted exams where dose is matched to clinical indication); or iterative reconstruction. COMPARISON: CT head wo con* [id number] 11/02/2020 6:03 PM RADIATION DOSE METRICS: Total DLP (mGy-cm): 782.03 FINDINGS: Brain: No evidence of acute infarct. No mass or mass effect. No intra axial hemorrhage. No extra axial fluid collection or hemorrhage. Scattered white matter hypodensities likely from chronic microvascular ischemic disease. Global brain volume loss, likely age related. Cerebral ventricles: Symmetric and without enlargement. Bones/joints: No acute fracture. Paranasal sinuses: Visualized sinuses are well aerated. Mastoid air cells: Visualized mastoid air cells are well aerated. Soft tissues: No concerning abnormalities. CT/CT head wo con* [id number] IMPRESSION: 1. Positioning mildly limits exam. 2. Given limitation, no acute intracranial abnormality. CXR: Attestation: I personally reviewed and interpreted this imaging study as follows: My impression: no acute abnormality EKG Data^: EKG 1: Attestation: I personally reviewed and interpreted this EKG as follows: EKG interpretation date: 11/15/20 Interpretation: afib hr [address] or t wave abnormalities qrs 151 qtc 450 Computer generated interpretation: Chest X-Ray 11/15/20 17:26 IMPRESSION: No acute findings. Head CT 11/15/20 17:26 IMPRESSION: 1. Positioning mildly limits exam. 2. Given limitation, no acute intracranial abnormality. Radiation Dose CTDIVOL = (mGy): DLP = 782.03 (mGy-cm) Discharge Plan Discharge Patient Disposition: Home Clinical Impression: Weakness, Atrial fibrillation Condition: Stable Prescriptions: No Action ferrous gluconate 324 mg (37.5 mg iron) tablet 324 mg PO DAILY@12 RF: 0 sulfasalazine 500 mg tablet 0.5 g PO BID@, Qty: 60 RF: 3 hydrocodone-acetaminophen 7.5-325 mg tablet 1 tab PO TID PRN (Reason: pain) 30 Days Qty: 90 RF: 0 hydrocodone-acetaminophen 7.5-325 mg tablet 1 tab PO TID@,, PRN (Reason: pain) 30 Days Qty: 90 RF: 0 tramadol 50 mg tablet 100 mg PO BID PRN (Reason: Pain) 30 Days Qty: 180 RF: 1 tizanidine 4 mg tablet 4 mg PO TID PRN (Reason: muscle spasticity) 30 Days Qty: 90 RF: 0 levothyroxine 175 mcg capsule 175 mcg PO DAILY@08 RF: 0 potassium chloride 20 mEq tablet extended release 20 meq PO BID@08,17 RF: 0 atorvastatin [Lipitor] 40 mg Tablet 40 mg PO DAILY@0800 RF: 0 loperamide [Anti-Diarrheal (loperamide)] 2 mg Tablet 2 - 4 mg PO PRN PRN (Reason: Diarrhea) RF: 0 acetaminophen [Arthritis Pain Reliever] 650 mg Tablet Extended Release 650 mg PO PRN PRN (Reason: Pain) RF: 0 nitroglycerin [Nitrostat] 0.4 mg Tablet, Sublingual 0.4 mg SUBLINGUAL Q5M PRN (Reason: Chest Pain) RF: 0 docusate sodium [Stool Softener] 100 mg Capsule 200 mg PO BID@08,23 RF: 0 zinc 50 mg Tablet 50 mg PO DAILY@12 RF: 0 pyridoxine (vitamin B6) [Vitamin B-6] 100 mg Tablet 100 mg PO DAILY@08 RF: 0 vitamin E 400 unit Capsule 400 unit PO DAILY@08 RF: 0 loratadine 10 mg Tablet 20 mg PO DAILY@08 RF: 0 magnesium L-lactate [Magtab] 84 mg tablet extended release 84 mg PO BID@12,17 RF: 0 cholecalciferol (vitamin D3) [Vitamin D3] 25 mcg (1,000 unit) Tablet 2,000 unit PO DAILY@08 RF: 0 omega 6-lze-nfd-fish oil [Ultra Lowber-3] 500-1,000 mg Capsule 2 cap PO DAILY@23 RF: 0 folic acid 1 mg tablet 1 mg PO DAILY@08 RF: 0 albuterol sulfate 2.5 mg /3 mL (0.083 %) Solution For Nebulization 2.5 mg inhalation TID PRN (Reason: Shortness Of Breath) RF: 0 aspirin 325 mg Tablet 325 mg PO BEDTIME@1999 RF: 0 Hold Instructions: Resume on 10/18/20. Novolin 70/30 U-100 Insulin 100 unit/mL (70-30) suspension See Rx Instructions .ROUTE .COMPLEX RF: 0 hydrocortisone 2.5 % cream See Rx Instructions .ROUTE .COMPLEX RF: 0 ketoconazole 2 % cream See Rx Instructions .ROUTE .COMPLEX RF: 0 methotrexate sodium 2.5 mg tablet 2.5 mg PO BID@0800,1999 RF: 0 hydralazine 25 mg tablet 25 mg PO TID@0800,1199,1999 RF: 0 amlodipine 10 mg Tablet 10 mg PO DAILY@08 RF: 0 insulin lispro [Admelog U-100 Insulin lispro] 100 unit/mL Solution See Rx Instructions .ROUTE .COMPLEX RF: 0 metoprolol tartrate 100 mg tablet 100 mg PO Q12H RF: 0 pantoprazole [Protonix] 40 mg tablet,delayed release (DR/EC) 40 mg PO BID@08,17 RF: 0 buspirone 10 mg tablet 10 mg PO BID@08, RF: 0 aripiprazole [Abilify] 5 mg tablet 5 mg PO DAILY@08 RF: 0 duloxetine [Cymbalta] 30 mg capsule,delayed release(DR/EC) 30 mg PO DAILY@08 RF: 0 duloxetine [Cymbalta] 60 mg capsule,delayed release(DR/EC) 60 mg PO DAILY@08 RF: 0 albuterol sulfate 90 mcg/actuation HFA aerosol inhaler 1 inh inhalation Q6H PRN (Reason: shortness of breath or wheezing) Qty: 18 RF: 0 furosemide 40 mg Tablet 40 mg PO DAILY@0800 Qty: 30 RF: 0 Vitamin B-12 1 tab PO DAILY@0800 RF: 0 black cohosh 1 tab PO BID@799,1999 RF: 0 digoxin 125 mcg (0.125 mg) tablet 125 mcg PO .every other day RF: 0 Discharge Orders: Discharge ED (Routine); Ordered 11/15/20 Ordered By: Karma Garner Referrals: Ami Perez DO [Primary Care Provider] - 1-3 days Discharge Diet: Advance as tolerated Discharge Activity: Resume usual activity Patient Instructions: Weakness (ED) Coding Level of Care Code ED Furnace Tender for Dougie Samson
--- NOTE | 2020-11-15 17:47 | PC.NURSE ---
patient to ct
[2020-11-15 17:48] LABS: Basophils # 0.1 10^3/uL (0.0-0.1); Basophils % 0.7 %; Eosinophils # 0.1 10^3/uL (0.0-0.8); Eosinophils % 1.2 %; Hematocrit 38.4 % (37.0-47.0); Hemoglobin 12.1 g/dL (11.5-15.3); Lymphocytes # 1.3 10^3/uL (0.8-4.8); Lymphocytes % 15.8 %; Mean Corpuscular HGB Conc 31.5 g/dL (30.0-36.0); Mean Corpuscular Hemoglobin 30.2 pg (28.0-34.0); Mean Corpuscular Volume 95.8 fL (81-99); Mean Platelet Volume 9.5 fL (7.4-10.4); Monocytes # 0.8 10^3/uL (0.2-0.9); Monocytes % 9.2 %; Neutrophils # 5.89 10^3/uL (1.8-7.7); Neutrophils % 72.5 %; Nucleated Red Blood Cells % 0 %; Platelet Count 205 10^3/cmm (130-400); Red Blood Count 4.01 10^6/uL (4.1-5.3); Red Cell Distribution Width 14.5 % (12.1-15.1); White Blood Count 8.1 10^3/uL (4.0-10.0)
--- NOTE | 2020-11-15 18:04 | ECG_ITS ---
[facility] Test Date: 2020-11-15 Pat Name: Myesha Parker Department: Room: Gender: Female Student Services Representative: : 1950 Requested By: Kenrick Al Order Number: [id number] Wilbur MD: Keisha Coronel M.D. Measurements Intervals [place] Rate: 104 P: IN: QRS: -89 QRSD: 151 T: 70 QT: 390 QTc: 513 Interpretive Statements ATRIAL FIBRILLATION WITH RAPID VENTRICULAR RESPONSE WITH ABERRANT CONDUCTION OR VENTRICULAR PREMATURE COMPLEXES RIGHT BUNDLE BRANCH BLOCK LEFT ANTERIOR FASCICULAR BLOCK [QRS AXIS <= -45, QR IN I, RS IN II] VOLTAGE CRITERIA FOR LVH POSSIBLE SEPTAL MYOCARDIAL INFARCTION, PROBABLY OLD Compared to ECG 10/13/2020 15:10:28 Aberrant conduction of supraventricular beat(s) now present Ventricular premature complex(es) now present Left ventricular hypertrophy now present Sinus rhythm no longer present First degree AV block no longer present Myocardial infarct finding still present Electronically Signed On 11-16-2020 20:14:13 CDT by Keisha Coronel M.D. [id number]
[2020-11-15 18:20] LABS: Alanine Aminotransferase 27 U/L (0-33); Alkaline Phosphatase 126 IU/L (35-105); Anion Gap 13.5 (5-19); Aspartate Amino Transferase 45 U/L (0-32); Blood Urea Nitrogen 14 mg/dL (8-23); Calcium 10.4 mg/dL (8.5-10.5); Carbon Dioxide 38 mmol/L (22-29); Chloride 95 mmol/L (98-107); Globulin 3.8 g/dL (1.3-4.6); Glucose 260 mg/dL (65-115); Osmolality Calculated 305 mOsm/kg (285-295); Potassium 3.5 mmol/L (3.5-5.1); Sodium 143 mmol/L (136-145); Total Bilirubin 0.4 mg/dL (0.15-1.2); Total Protein 7.8 g/dL (6.6-8.7)
[2020-11-15 18:22] VITALS: BP 106/73; PULSE 106; RESP 20; O2SAT 98
[2020-11-15 18:37] LABS: Creatine Phosphokinase 41 U/L (26-192)
[2020-11-15 18:38] LABS: Troponin(5th) Baseline 36 ng/L (0-10)
[2020-11-15] MEDS: sodium chloride 0.9% 500 ML 999 ML IV (18:39)
[2020-11-15 18:46] VITALS: BP 125/86; PULSE 91; RESP 21; O2SAT 96
[2020-11-15 18:50] LABS: Add Urine Microscopic? YES; Bilirubin Urine 1+ (Negative); Blood Urine Neg (Negative); Glucose Urine UA Norm (Normal); Ketones Urine 1+ (Negative); Leukocyte Esterase Urine Negative (Negative); Nitrate Urine Negative (Negative); Protein Urine 1+ (Negative); Specific Gravity, Urine 1.015 (1.005-1.030); Urine Appearance Clear (CLEAR); Urine Color Dark Yellow (Yellow); Urobilinogen Urine Norm (Negative); pH Urine 6 (5-7)
[2020-11-15 18:51] LABS: Add Urine Culture? No; Bacteria Urine 1+ /hpf; Hyaline Casts Urine 25-40 /lpf; Mucus Urine 2+ /hpf; WBC Urine 0-4 /hpf (0-5)
[2020-11-15 19:09] LABS: Troponin 5 2HR 34.56 ng/L (0-10)
[2020-11-15 19:10] LABS: Troponin 5 2HR Delta -1.44 ABS# (0-10)
[2020-11-15 19:30] VITALS: BP 122/86; PULSE 102; RESP 18; O2SAT 96
== END 2020-11-15 19:31 | disposition home or self-care (01) ==
PROVIDERS: Family Medicine; Emergency Provider Emergency Medicine; PCP Internal Medicine
DX: R53.1 Weakness (principal); I48.91 Unspecified atrial fibrillation; Z79.82 Long term (current) use of aspirin; Z79.4 Long term (current) use of insulin; I11.0 Hypertensive heart disease with heart failure; I50.9 Heart failure, unspecified; J44.9 Chronic obstructive pulmonary disease, unspecified; E78.5 Hyperlipidemia, unspecified; E11.9 Type 2 diabetes mellitus without complications; Z87.891 Personal history of nicotine dependence
CPT/HCPCS: 36415; 70450; 71045; 80053; 80162; 81001; 82550; 84484; 85025; 93005; 96374; 99284; J3490; J7040

== ENCOUNTER → 2020-11-17 09:28 | Outpatient (BNVA) | payer MEDICARE, SELFPAY | PROVIDERS: PCP Internal Medicine; Visit Provider Anesthesiology | DX: G89.29 Other chronic pain (principal); M54.5 Low back pain; M17.0 Bilateral primary osteoarthritis of knee; Z79.891 Long term (current) use of opiate analgesic; Z79.899 Other long term (current) drug therapy | CPT/HCPCS: 99214 ==

== ENCOUNTER 2020-12-22 03:11 | Emergency (ER) | payer MEDICARE, SELFPAY ==
[2020-12-22 03:17] VITALS: BP 93/67; PULSE 102; RESP 18; TEMP 36.8; O2SAT 96; BMI 38.2
--- NOTE | 2020-12-22 03:17 | XR_ITS ---
WS: [id number] Exam: XR hip LT 2-3V wo/w pel* [id number] Date/Time of Exam: 12/22/2020 3:25 AM Reason For Exam: fall Comparison 07/02/2019. No acute fracture or dislocation. Soft tissue calcification along the greater trochanter that might r eflect calcific bursitis. There may be left hip joint effusion. Mild DJD of the joint compartment. XR/XR hip LT 2-3V wo/w pel* [id number] IMPRESSION: 1. No acute fracture or dislocation. 2. Soft tissue calcification along the greater trochanter that might reflect ca lcific bursitis. There may be joint effusion. Mild DJD.
--- NOTE | 2020-12-22 03:17 | CTR_ITS ---
PROCEDURE INFORMATION: Exam: CT Head Without Contrast Exam date and time: 12/22/2020 3:25 AM Age: 70 years old Clinical indication: Injury or trauma; Blunt trauma (contusions or hematomas); Patient HX: Fall at home. Sustained blow to posterior neck. C/O pain. TECHNIQUE: Imaging protocol: Computed tomography of the head without contrast. Radiation optimization: All CT scans at this facility use at least one of these dose optimization techniques: automated exposure control; mA and/or kV adjustment per patient size (includes targeted exams where dose is matched to clinical indication); or iterative reconstruction. COMPARISON: CT head wo con* [id number] 11/15/2020 5:57 PM RADIATION DOSE METRICS: Total DLP (mGy-cm): 808.09 FINDINGS: Brain: Mild hypodensities in the periventricular/deep white matter suggest chronic microvascular ischemia. Cerebral ventricles: No hydrocephalus Bones/joints: No acute fracture. Paranasal sinuses: Visualized sinuses are unremarkable. No fluid levels. Mastoid air cells: No significant mastoid effusion. Vasculature: Vascular calcifications. Soft tissues: Unremarkable. CT/CT head wo con* [id number] IMPRESSION: No acute intracranial abnormality. Radiation Dose CTDIVOL = (mGy): DLP = 808.09 (mGy-cm)
--- NOTE | 2020-12-22 03:17 | CTR_ITS ---
PROCEDURE INFORMATION: Exam: CT Cervical Spine Without Contrast Exam date and time: 12/22/2020 3:25 AM Age: 70 years old Clinical indication: Injury or trauma; Blunt trauma; Patient HX: Fall at home. Sustained blow to posterior neck. C/O pain. TECHNIQUE: Imaging protocol: Computed tomography images of the cervical spine without contrast. Radiation optimization: All CT scans at this facility use at least one of these dose optimization techniques: automated exposure control; mA and/or kV adjustment per patient size (includes targeted exams where dose is matched to clinical indication); or iterative reconstruction. COMPARISON: CT cervical spin wo con* [id number] 11/02/2020 6:06 PM RADIATION DOSE METRICS: Total DLP (mGy-cm): 940.06 FINDINGS: Bones/joints: No acute fracture. Grade 1 anterolisthesis of C2 on C3 and C3 on C4. Discs/Spinal canal/Neural foramina: Mild degenerative changes. Thyroid: Bilateral thyroid calcifications. Lungs: Lung apices are normal. Soft tissues: Unremarkable. CT/CT cervical spin wo con* [id number] IMPRESSION: No acute fracture. Radiation Dose CTDIVOL = (mGy): DLP = 940.06 (mGy-cm)
--- NOTE | 2020-12-22 03:19 | W.ED.FALL ---
HPI - Fall General: Chief Complaint: Fall Stated Complaint: fall Time Seen by Provider: 12/22/20 03:14 Source: patient Mode of arrival: ambulatory Limitations: no limitations History of Present Illness: HPI Narrative: 70-year-old female states she was walking and tripped at the door frame roughly 2 hours ago. She states that she did hit her head. She does have pain on neck pain and some slight left hip pain. Patient's caregivers found her the door roughly an hour ago was able to help her up. Patient states her main pain is in her head and rates it a 5 out of 10. She had a brief loss consciousness. Patient here was able to stand up from her wheelchair and ambulate to the bed. MD complaint: fall Associated symptoms-after fall: Reports headache(s) and neck pain; Denies abdominal pain or chest pain Review of Systems Const: Denies: fever(s), chills, body aches or change in appetite Eyes: Denies: blurry vision or eye discomfort ENMT: Denies: throat pain or dental pain Card: Denies: chest pain Resp: Denies: dyspnea GI: Denies: abdominal pain, nausea, vomiting or diarrhea : Denies: dysuria Musc: Reports: neck pain and extremity pain Skin/Breast: Denies: rash Neuro: Reports: headache(s) Psych: Denies: depression [place]/Lymph: Denies: easy bruising All/Imm: Denies: urticaria PFSH ED PFSH: Medical History (Updated 12/22/20 @ 04:40 by Karma Garner MD) Anxiety and depression CHF exacerbation Chronic knee pain Chronic low back pain COPD (chronic obstructive pulmonary disease) Oxygen dependent, 2 L at baseline COVID-14 August 2020 Fibromyalgia Hyperlipidemia Hypertension Hypothyroidism Inflammatory arthritis Intermittent atrial fibrillation Because the patient history of frequent fall she was thought to be high risk for bleeding complications. So she is taking only the aspirin at this time. SHE HAS EASY BRUISING WELL Left renal mass Liver cirrhosis Low back pain of over 3 months duration Lung nodule Narrow complex tachycardia Osteoarthritis of knees, bilateral Poorly controlled diabetes mellitus Recurrent UTI Seronegative rheumatoid arthritis of both hands Unstable angina Urgency incontinence UTI (urinary tract infection) Surgical History History of cardiac cath History of cholecystectomy History of hysterectomy History of knee replacement History of thyroid surgery Family History Other CAD (coronary artery disease) Cancer Denies family history of Anesthesia complication Bleeding disorder Social History (Updated 11/17/20 @ 10:29 by Lisa Berrios LPN) Smoking and tobacco status: former smoker Quit status (tobacco): has quit using tobacco Year quit tobacco: 2005 Second hand smoke exposure: No Alcohol intake: never Adopted: No Caregiver/support person: No Lives independently: No Household members: spouse Marital status: Current occupational status: retired History of recent travel: No Current gender identity: Female Physical Exam Const: COMMON NORMALS: no acute distress, patient oriented x3 and healthy appearing HENMT: COMMON NORMALS: normocephalic HEAD & SCALP: normocephalic OTHER: Small hematoma to posterior scalp Eye: COMMON NORMALS: Equal, round and reactive pupils present and EOMs intact bilaterally PUPIL: Yes Equal, round and reactive pupils present Neck/C-Spine: COMMON NORMALS: full ROM and supple Chest: COMMONS NORMALS: normal inspection of the chest and normal palpation of entire chest wall Resp: COMMON NORMALS: normal respiratory effort, No retractions, No use of accessory muscles and clear to auscultation bilaterally AUSCULTATION: clear to auscultation bilaterally Cardio: COMMON NORMALS: regular rate, regular rhythm and No murmurs present (Cardio) RATE: regular rate RHYTHM: regular rhythm GI: COMMON NORMALS: Normal to inspection, nondistended, normoactive bowel sounds present, Soft to palpation, non-tender and no masses PALPATION: Yes Soft to palpation Extremity: COMMON NORMALS: normal to inspection and full ROM OTHER: Tenderness over left hip. Patient has full range of motion of both legs with slight hip pain in the left hip. Patient was able to stand and ambulate to the bed without any difficulty. Neuro: COMMON NORMALS: patient oriented x3, moves all extremities and no focal motor deficits Psych: COMMON NORMALS: mental status grossly normal, Normal thought process present and cooperative THOUGHT PROCESS: Normal thought process present Skin: COMMON NORMALS: no rashes or lesions noted and no wounds GENERAL SKIN EXAM: no rashes or lesions noted Course Vital Signs: Vital signs: Vital Signs Temperature 98.3 F 12/22/20 03:17 Pulse Rate 102 H 12/22/20 03:17 Respiratory Rate 18 12/22/20 03:17 Blood Pressure 93/67 12/22/20 03:17 Pulse Oximetry 96 12/22/20 03:17 MDM - Fall MDM Narrative: Medical decision making narrative: Patient presents with a closed head injury along with left hip contusion from a fall. Patient's head CT here is normal and she feels much improved. X-ray of her hip showed no fracture. She was able to ambulate here in the halls without any pain. She is stable for discharge and is to follow-up with PCP in 2 to 4 days return if worsening. Imaging Data^: CT Head: Radiologist's impression: [address] [place] [address] CT Scan Report Signed Patient: Myesha Parker Unit #: [id number] : 1950 Age/Sex: 70 / F ADM Date: 12/22/20 Loc: ER Room/Bed: Attending Dr: Ordering Provider/Ordering MD: Karma Garner MD Date of Service: 12/22/20 Procedure(s): CT head wo con* [id number] Accession Number(s): [id number] Report Number: [id number] PROCEDURE INFORMATION: Exam: CT Head Without Contrast Exam date and time: 12/22/2020 3:25 AM Age: 70 years old Clinical indication: Injury or trauma; Blunt trauma (contusions or hematomas); Patient HX: Fall at home. Sustained blow to posterior neck. C/O pain. TECHNIQUE: Imaging protocol: Computed tomography of the head without contrast. Radiation optimization: All CT scans at this facility use at least one of these dose optimization techniques: automated exposure control; mA and/or kV adjustment per patient size (includes targeted exams where dose is matched to clinical indication); or iterative reconstruction. COMPARISON: CT head wo con* [id number] 11/15/2020 5:57 PM RADIATION DOSE METRICS: Total DLP (mGy-cm): 808.09 FINDINGS: Brain: Mild hypodensities in the periventricular/deep white matter suggest chronic microvascular ischemia. Cerebral ventricles: No hydrocephalus Bones/joints: No acute fracture. Paranasal sinuses: Visualized sinuses are unremarkable. No fluid levels. Mastoid air cells: No significant mastoid effusion. Vasculature: Vascular calcifications. Soft tissues: Unremarkable. CT/CT head wo con* [id number] IMPRESSION: No acute intracranial abnormality. Radiation Dose CTDIVOL = (mGy): DLP = 808.09 (mGy-cm) Other CT: [facility]'s [facility]: [facility] [address] [place] [place] [address] CT Scan Report Signed Patient: Myesha Parker Unit #: [id number] : 1950 Age/Sex: 70 / F ADM Date: 12/22/20 Loc: ER Room/Bed: Attending Dr: Ordering Provider/Ordering MD: Karma Garner MD Date of Service: 12/22/20 Procedure(s): CT cervical spin wo con* [id number] Accession Number(s): [id number] Report Number: [id number] PROCEDURE INFORMATION: Exam: CT Cervical Spine Without Contrast Exam date and time: 12/22/2020 3:25 AM Age: 70 years old Clinical indication: Injury or trauma; Blunt trauma; Patient HX: Fall at home. Sustained blow to posterior neck. C/O pain. TECHNIQUE: Imaging protocol: Computed tomography images of the cervical spine without contrast. Radiation optimization: All CT scans at this facility use at least one of these dose optimization techniques: automated exposure control; mA and/or kV adjustment per patient size (includes targeted exams where dose is matched to clinical indication); or iterative reconstruction. COMPARISON: CT cervical spin wo con* [id number] 11/02/2020 6:06 PM RADIATION DOSE METRICS: Total DLP (mGy-cm): 940.06 FINDINGS: Bones/joints: No acute fracture. Grade 1 anterolisthesis of C2 on C3 and C3 on C4. Discs/Spinal canal/Neural foramina: Mild degenerative changes. Thyroid: Bilateral thyroid calcifications. Lungs: Lung apices are normal. Soft tissues: Unremarkable. CT/CT cervical spin wo con* [id number] IMPRESSION: No acute fracture. Xray Ortho: Attestation: I personally reviewed and interpreted this imaging study as follows: My impression: X-ray of left hip negative Discharge Plan Discharge Patient Disposition: Home Clinical Impression: Fall Qualifiers: Encounter type: initial encounter Qualified Code(s): W19.XXXA - Unspecified fall, initial encounter Closed head injury Qualifiers: Encounter type: initial encounter Qualified Code(s): S09.90XA - Unspecified injury of head, initial encounter Contusion of left hip Qualifiers: Encounter type: initial encounter Qualified Code(s): S70.02XA - Contusion of left hip, initial encounter Condition: Stable Prescriptions: No Action ferrous gluconate 324 mg (37.5 mg iron) tablet 324 mg PO DAILY@12 RF: 0 sulfasalazine 500 mg tablet 0.5 g PO BID@08,17 Qty: 60 RF: 3 hydrocodone-acetaminophen 7.5-325 mg tablet 1 tab PO TID PRN (Reason: pain) 30 Days Qty: 90 RF: 0 hydrocodone-acetaminophen 7.5-325 mg tablet 1 tab PO TID@08,17,23 PRN (Reason: pain) 30 Days Qty: 90 RF: 0 tramadol 50 mg tablet 100 mg PO BID PRN (Reason: Pain) 30 Days Qty: 180 RF: 1 tizanidine 4 mg tablet 4 mg PO TID PRN (Reason: muscle spasticity) 30 Days Qty: 90 RF: 0 levothyroxine 175 mcg capsule 175 mcg PO DAILY@08 RF: 0 potassium chloride 20 mEq tablet extended release 20 meq PO BID@, RF: 0 aripiprazole [Abilify] 5 mg tablet 5 mg PO DAILY@08 Qty: 30 RF: 1 buspirone 10 mg tablet 10 mg PO BID@08,17 Qty: 60 RF: 1 duloxetine [Cymbalta] 30 mg capsule,delayed release(DR/EC) 30 mg PO DAILY@08 Qty: 30 RF: 1 duloxetine [Cymbalta] 60 mg capsule,delayed release(DR/EC) 60 mg PO DAILY@08 Qty: 30 RF: 1 folic acid 1 mg tablet 1 mg PO DAILY@08 Qty: 90 RF: 1 amlodipine 10 mg tablet 10 mg PO DAILY@08 Qty: 90 RF: 3 atorvastatin [Lipitor] 40 mg Tablet 40 mg PO DAILY@0800 RF: 0 loperamide [Anti-Diarrheal (loperamide)] 2 mg Tablet 2 - 4 mg PO PRN PRN (Reason: Diarrhea) RF: 0 acetaminophen [Arthritis Pain Reliever] 650 mg Tablet Extended Release 650 mg PO PRN PRN (Reason: Pain) RF: 0 nitroglycerin [Nitrostat] 0.4 mg Tablet, Sublingual 0.4 mg SUBLINGUAL Q5M PRN (Reason: Chest Pain) RF: 0 docusate sodium [Stool Softener] 100 mg Capsule 200 mg PO BID@, RF: 0 zinc 50 mg Tablet 50 mg PO DAILY@12 RF: 0 pyridoxine (vitamin B6) [Vitamin B-6] 100 mg Tablet 100 mg PO DAILY@08 RF: 0 vitamin E 400 unit Capsule 400 unit PO DAILY@08 RF: 0 loratadine 10 mg Tablet 20 mg PO DAILY@ RF: 0 magnesium L-lactate [Magtab] 84 mg tablet extended release 84 mg PO BID@ RF: 0 cholecalciferol (vitamin D3) [Vitamin D3] 25 mcg (1,000 unit) Tablet 2,000 unit PO DAILY@ RF: 0 omega 5-xhu-gpo-fish oil [Ultra Colt-3] 500-1,000 mg Capsule 2 cap PO DAILY@ RF: 0 albuterol sulfate 2.5 mg /3 mL (0.083 %) Solution For Nebulization 2.5 mg inhalation TID PRN (Reason: Shortness Of Breath) RF: 0 aspirin 325 mg Tablet 325 mg PO BEDTIME@1999 RF: 0 Hold Instructions: Resume on 10/18/20. Novolin 70/30 U-100 Insulin 100 unit/mL (70-30) suspension See Rx Instructions .ROUTE .COMPLEX RF: 0 hydrocortisone 2.5 % cream See Rx Instructions .ROUTE .COMPLEX RF: 0 ketoconazole 2 % cream See Rx Instructions .ROUTE .COMPLEX RF: 0 methotrexate sodium 2.5 mg tablet 2.5 mg PO BID@799,1999 RF: 0 hydralazine 25 mg tablet 25 mg PO TID@0800,1199,1999 RF: 0 insulin lispro [Admelog U-100 Insulin lispro] 100 unit/mL Solution See Rx Instructions .ROUTE .COMPLEX RF: 0 metoprolol tartrate 100 mg tablet 100 mg PO Q12H RF: 0 pantoprazole [Protonix] 40 mg tablet,delayed release (DR/EC) 40 mg PO BID@ RF: 0 albuterol sulfate 90 mcg/actuation HFA aerosol inhaler 1 inh inhalation Q6H PRN (Reason: shortness of breath or wheezing) Qty: 18 RF: 0 furosemide 40 mg Tablet 40 mg PO DAILY@0800 Qty: 30 RF: 0 Vitamin B-12 1 tab PO DAILY@0800 RF: 0 black cohosh 1 tab PO BID@0800,2000 RF: 0 digoxin 125 mcg (0.125 mg) tablet 125 mcg PO .every other day RF: 0 Discharge Orders: Discharge ED (Routine); Ordered 12/22/20 Ordered By: Karma Garner Referrals: Ami Perez DO [Primary Care Provider] - 1-3 days Discharge Diet: Advance as tolerated Discharge Activity: Resume usual activity Patient Instructions: Minor Head Injury (ED), Fall Prevention (ED) Coding Level of Care Code ED Mental Health Counselor for Dougie Fwsaul Exam Comprehensive
[2020-12-22] MEDS: HYDROcodone-acetaminophen 5-325 mg Tablet 1 TAB PO (03:22)
[2020-12-22 03:30] VITALS: BP 124/80; PULSE 89; O2SAT 97
[2020-12-22 04:50] VITALS: BP 177/70; PULSE 53; RESP 18; O2SAT 97
== END 2020-12-22 04:50 | disposition home or self-care (01) ==
PROVIDERS: Emergency Provider Emergency Medicine; PCP Internal Medicine
DX: S09.8XXA Other specified injuries of head, initial encounter (principal); S70.02XA Contusion of left hip, initial encounter; Z79.82 Long term (current) use of aspirin; Z79.4 Long term (current) use of insulin; J44.9 Chronic obstructive pulmonary disease, unspecified; I11.0 Hypertensive heart disease with heart failure; I50.9 Heart failure, unspecified; E78.5 Hyperlipidemia, unspecified; I48.91 Unspecified atrial fibrillation; E11.9 Type 2 diabetes mellitus without complications; Z87.891 Personal history of nicotine dependence; W18.09XA Striking against other object with subsequent fall, initial encounter
CPT/HCPCS: 70450; 72125; 73502; 99283

== ENCOUNTER → 2021-01-11 09:02 | Outpatient (BNVA) | payer MEDICARE, SELFPAY | PROVIDERS: PCP Internal Medicine; Visit Provider Nurse Practitioner Psychiatric/Mental Health | DX: F43.12 Post-traumatic stress disorder, chronic (principal); F33.41 Major depressive disorder, recurrent, in partial remission; M54.5 Low back pain; G89.29 Other chronic pain; M25.569 Pain in unspecified knee; Z79.899 Other long term (current) drug therapy | CPT/HCPCS: 99213 ==

== ENCOUNTER → 2021-01-14 10:04 | Outpatient (BNVA) | payer MEDICARE, SELFPAY | PROVIDERS: PCP Internal Medicine; Visit Provider Nurse Practitioner | DX: G89.29 Other chronic pain (principal); M54.5 Low back pain; M17.0 Bilateral primary osteoarthritis of knee; Z79.891 Long term (current) use of opiate analgesic | CPT/HCPCS: 99214 ==

== ENCOUNTER → 2021-01-25 10:07 | Outpatient (BNVA) | payer MEDICARE, SELFPAY | PROVIDERS: PCP Internal Medicine; Visit Provider Internal Medicine Rheumatology | DX: M06.041 Rheumatoid arthritis without rheumatoid factor, right hand (principal); M06.042 Rheumatoid arthritis without rheumatoid factor, left hand; M17.0 Bilateral primary osteoarthritis of knee; Z79.899 Other long term (current) drug therapy; J44.9 Chronic obstructive pulmonary disease, unspecified; Z20.822 Contact with and (suspected) exposure to COVID-19; Z87.891 Personal history of nicotine dependence | CPT/HCPCS: 99214 ==

== ENCOUNTER 2021-01-28 06:07 | Emergency (ER) | payer MEDICARE, SELFPAY ==
--- NOTE | 2021-01-28 06:11 | W.ED.CHESTPA ---
HPI - Chest Pain General: Chief Complaint: Chest Pain Stated Complaint: CP Time Seen by Provider: 01/28/21 06:09 History of Present Illness: HPI narrative: 70-year-old female presents to the emergency room with complaint of chest discomfort.patient reports she is having breakthrough atrial fibrillation intermittently while at rest the last for 15 to 30 minutes resolve spontaneously she states she can actually make it better by massaging her chest. She is not currently on any anticoagulation because of her recent upper GI bleed. She is on digoxin which she takes every other day. And she is on metoprolol 100 mg twice a day. 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 She is currently on sulfasalazine. She has been having trouble getting it due to a shortage of the medications. He is additionally on methotrexate and prednisone. She was admitted in September of this year with a heart failure syncopal episodes and an upper GI bleed. Echo showed preserved cardiac ejection fracture. In December 2019 patient had a Lexiscan sestamibi stress test which was negative. MD complaint: chest discomfort Pertinent past history: other (Atrial fibrillation) Onset (ago): day(s) Timing of current episode: episodic Prior episodes: Yes Onset: during rest Pain location: left chest Pain radiation: none Severity: mild Quality: heaviness Relieving factors: other (Relieved by massaging the chest for the patient) Exacerbating factors: nothing Associated symptoms: Reports palpitations; Deny abdominal pain, diaphoresis, dyspnea, fever(s), leg edema, nausea, sense of impending doom, syncope or vomiting Treatment prior to arrival: none Review of Systems Const: Denies: fever(s) or diaphoresis ENMT: Denies: throat pain, ear or mastoid pain, nasal discharge or nasal congestion Card: Reports: palpitations; Denies: syncope Resp: Denies: dyspnea GI: Denies: abdominal pain, nausea or vomiting : Denies: flank pain, difficulty voiding, dysuria, urinary frequency or urinary urgency Skin/Breast: Denies: rash or pruritus PFSH ED PFSH: Medical History Anxiety and depression CHF exacerbation Chronic knee pain Chronic low back pain COPD (chronic obstructive pulmonary disease) Oxygen dependent, 2 L at baseline COVID-14 August 2020 Fibromyalgia High risk medication use Hyperlipidemia Hypertension Hypothyroidism Immunization counseling Inflammatory arthritis Intermittent atrial fibrillation Because the patient history of frequent fall she was thought to be high risk for bleeding complications. So she is taking only the aspirin at this time. SHE HAS EASY BRUISING WELL Left renal mass Liver cirrhosis Low back pain of over 3 months duration Lung nodule Narrow complex tachycardia Osteoarthritis of knees, bilateral Poorly controlled diabetes mellitus Recurrent UTI Seronegative rheumatoid arthritis of both hands Unstable angina Urgency incontinence UTI (urinary tract infection) Surgical History History of cardiac cath History of cholecystectomy History of hysterectomy History of knee replacement History of thyroid surgery Family History Other CAD (coronary artery disease) Cancer Denies family history of Anesthesia complication Bleeding disorder Social History Smoking and tobacco status: former smoker Quit status (tobacco): has quit using tobacco Year quit tobacco: 2005 Second hand smoke exposure: No Alcohol intake: never Adopted: No Caregiver/support person: No Lives independently: No Household members: spouse Marital status: Current occupational status: retired History of recent travel: No Current gender identity: Female Physical Exam Const: COMMON NORMALS: no acute distress GENERAL APPEARANCE: cooperative and comfortable ORIENTATION/CONSCIOUSNESS: Yes awake, Yes oriented to person, Yes oriented to place and Yes oriented to time HENMT: COMMON NORMALS: normocephalic, atraumatic, hearing grossly normal bilaterally and external ears normal HEAD & SCALP: normocephalic and atraumatic EXTERNAL EAR: Yes external ears normal Neck/C-Spine: COMMON NORMALS: no JVD Resp: COMMON NORMALS: normal respiratory effort, No retractions, No use of accessory muscles and clear to auscultation bilaterally AUSCULTATION: clear to auscultation bilaterally Cardio: COMMON NORMALS: no JVD, regular rate, regular rhythm and No murmurs present (Cardio) RATE: regular rate RHYTHM: regular rhythm GI: COMMON NORMALS: Soft to palpation and No hepatosplenomegaly present AUSCULTATION: Yes normoactive bowel sounds PALPATION: Yes Soft to palpation, No Tenderness to palpation present (GI), No Guarding due to palpation present (GI) and Yes No hepatosplenomegaly present Extremity: COMMON NORMALS: normal to inspection, capillary refill normal, no clubbing, cyanosis or edema, no calf tenderness and no pedal edema Neuro: SENSORIUM/ORIENTATION: Yes oriented to person, Yes oriented to place and Yes oriented to time Skin: COMMON NORMALS: no rashes or lesions noted GENERAL SKIN EXAM: no rashes or lesions noted Course Vital Signs: Vital signs: Vital Signs Temperature 97.8 F 01/28/21 06:25 Pulse Rate 59 L 01/28/21 07:54 Respiratory Rate 16 01/28/21 07:54 Blood Pressure 125/64 01/28/21 07:54 Pulse Oximetry 97 01/28/21 07:54 MDM - Chest Pain MDM Narrative: Medical decision making narrative: Already Ash enzymes are negative. Her heart rate has been in 50s and 60s. Her hemoglobin did drop some she has known chronic anemia. We will go and discharge home on 48-hour Holter follow-up with cardiology. Hesitant to adjust her medications as she is already is fairly significantly bradycardic if we increase her dig and think she probably a dig toxic and bradycardic to the point of symptomatic symptomatic. At this point discussed with her is better just hold Lab Data: Labs: Lab Results 01/28/21 01/28/21 01/28/21 Range/Units 06:25 06:25 06:25 WBC 5.4 (4.0-10.0) 10^3/ uL RBC 2.84 L (4.1-5.3) 10^6/u L Hgb 8.9 L (11.5-15.3) g/dL Hct 28.2 L (37.0-47.0) % MCV 99.3 H (81-99) fL MCH 31.3 (28.0-34.0) pg MCHC 31.6 (30.0-36.0) g/dL RDW 13.2 (12.1-15.1) % Plt Count 172 (130-400) 10^3/c mm MPV 9.7 (7.4-10.4) fL Neut % (Auto) 62.1 % Lymph % (Auto) 24.3 % [place] % (Auto) 10.6 % Eos % (Auto) 1.9 % Baso % (Auto) 0.7 % Neut # (Auto) 3.34 (1.8-7.7) 10^3/u L Lymph # (Auto) 1.3 (0.8-4.8) 10^3/u L [place] # (Auto) 0.6 (0.2-0.9) 10^3/u L Eos # (Auto) 0.1 (0.0-0.8) 10^3/u L Baso # (Auto) 0.0 (0.0-0.1) 10^3/u L Nucleated RBC % (a uto) 0 % Nucleated RBCs # 0.0 /100WBC Sodium 138 (136-145) mmol/L Potassium 4.2 (3.5-5.1) mmol/L Chloride 99 (98-107) mmol/L Carbon Dioxide 30 H (22-29) mmol/L Anion Gap 13.2 (5-19) BUN 24 H (8-23) mg/dL Creatinine 1.1 H (0.5-0.9) mg/dL GFR Calculation Not Reportable Glucose 195 H (65-115) mg/dL Calculated Osmolal ity 295 (285-295) mOsm/k g Calcium 8.9 (8.5-10.5) mg/dL Total Bilirubin 0.3 (0.15-1.2) mg/dL AST 35 H (0-32) U/L ALT 18 (0-33) U/L Alkaline Phosphata se 105 (35-105) IU/L Troponin T Baselin e 25 H (0-10) ng/L Troponin T 120 Min [place] (0-10) ng/L Delta Troponin T (0-10) ABS# Total Protein 6.2 L (6.6-8.7) g/dL Albumin 3.3 L (3.5-5.2) g/dL Globulin 2.9 (1.3-4.6) g/dL Digoxin 0.6 (0.6-1.2) ng/mL 01/28/21 Range/Units 08:05 WBC (4.0-10.0) 10^3/ uL RBC (4.1-5.3) 10^6/u L Hgb (11.5-15.3) g/dL Hct (37.0-47.0) % MCV (81-99) fL MCH (28.0-34.0) pg MCHC (30.0-36.0) g/dL RDW (12.1-15.1) % Plt Count (130-400) 10^3/c mm MPV (7.4-10.4) fL Neut % (Auto) % Lymph % (Auto) % [place] % (Auto) % Eos % (Auto) % Baso % (Auto) % Neut # (Auto) (1.8-7.7) 10^3/u L Lymph # (Auto) (0.8-4.8) 10^3/u L [place] # (Auto) (0.2-0.9) 10^3/u L Eos # (Auto) (0.0-0.8) 10^3/u L Baso # (Auto) (0.0-0.1) 10^3/u L Nucleated RBC % (a uto) % Nucleated RBCs # /100WBC Sodium (136-145) mmol/L Potassium (3.5-5.1) mmol/L Chloride (98-107) mmol/L Carbon Dioxide (22-29) mmol/L Anion Gap (5-19) BUN (8-23) mg/dL Creatinine (0.5-0.9) mg/dL GFR Calculation Glucose (65-115) mg/dL Calculated Osmolal ity (285-295) mOsm/k g Calcium (8.5-10.5) mg/dL Total Bilirubin (0.15-1.2) mg/dL AST (0-32) U/L ALT (0-33) U/L Alkaline Phosphata se (35-105) IU/L Troponin T Baselin e (0-10) ng/L Troponin T 120 Min [place] 23.94 H (0-10) ng/L Delta Troponin T -1.06 L (0-10) ABS# Total Protein (6.6-8.7) g/dL Albumin (3.5-5.2) g/dL Globulin (1.3-4.6) g/dL Digoxin (0.6-1.2) ng/mL Discharge Plan Discharge Patient Disposition: Home Clinical Impression: Intermittent atrial fibrillation Condition: Stable Prescriptions: No Action ferrous gluconate 324 mg (37.5 mg iron) tablet 324 mg PO DAILY@12 RF: 0 sulfasalazine 500 mg tablet 0.5 g PO BID@08,17 Qty: 60 RF: 3 tizanidine 4 mg tablet 4 mg PO TID PRN (Reason: muscle spasticity) 30 Days Qty: 90 RF: 2 hydrocodone-acetaminophen 7.5-325 mg tablet 1 tab PO TID PRN (Reason: pain) 30 Days Qty: 90 RF: 0 hydrocodone-acetaminophen 7.5-325 mg tablet 1 tab PO TID@08,, PRN (Reason: pain) 30 Days Qty: 90 RF: 0 tramadol 50 mg tablet 100 mg PO BID PRN (Reason: Pain) 30 Days Qty: 180 RF: 1 Humira Pen 40 mg/0.8 mL pen injector kit 40 mg SUBCUT Q14D Qty: 2 RF: 3 levothyroxine 175 mcg capsule 175 mcg PO DAILY@08 RF: 0 potassium chloride 20 mEq tablet extended release 20 meq PO BID@, RF: 0 aripiprazole [Abilify] 5 mg tablet 5 mg PO DAILY@08 Qty: 30 RF: 2 duloxetine [Cymbalta] 30 mg capsule,delayed release(DR/EC) 30 mg PO DAILY@08 Qty: 30 RF: 2 duloxetine [Cymbalta] 60 mg capsule,delayed release(DR/EC) 60 mg PO DAILY@08 Qty: 30 RF: 2 buspirone 10 mg tablet 10 mg PO BID@, Qty: 60 RF: 2 folic acid 1 mg tablet 1 mg PO DAILY@08 Qty: 90 RF: 1 amlodipine 10 mg tablet 10 mg PO DAILY@08 Qty: 90 RF: 3 methotrexate sodium 2.5 mg tablet 7.5 mg PO .Q7days Qty: 15 RF: 3 atorvastatin [Lipitor] 40 mg Tablet 40 mg PO DAILY@0800 RF: 0 loperamide [Anti-Diarrheal (loperamide)] 2 mg Tablet 2 - 4 mg PO PRN PRN (Reason: Diarrhea) RF: 0 acetaminophen [Arthritis Pain Reliever] 650 mg Tablet Extended Release 650 mg PO PRN PRN (Reason: Pain) RF: 0 nitroglycerin [Nitrostat] 0.4 mg Tablet, Sublingual 0.4 mg SUBLINGUAL Q5M PRN (Reason: Chest Pain) RF: 0 docusate sodium [Stool Softener] 100 mg Capsule 200 mg PO BID@, RF: 0 zinc 50 mg Tablet 50 mg PO DAILY@12 RF: 0 pyridoxine (vitamin B6) [Vitamin B-6] 100 mg Tablet 100 mg PO DAILY@08 RF: 0 vitamin E 400 unit Capsule 400 unit PO DAILY@08 RF: 0 loratadine 10 mg Tablet 20 mg PO DAILY@08 RF: 0 magnesium L-lactate [Magtab] 84 mg tablet extended release 84 mg PO BID@, RF: 0 cholecalciferol (vitamin D3) [Vitamin D3] 25 mcg (1,000 unit) Tablet 2,000 unit PO DAILY@08 RF: 0 omega 8-pmp-yxl-fish oil [Ultra Mather-3] 500-1,000 mg Capsule 2 cap PO DAILY@ RF: 0 albuterol sulfate 2.5 mg /3 mL (0.083 %) Solution For Nebulization 2.5 mg inhalation TID PRN (Reason: Shortness Of Breath) RF: 0 aspirin 325 mg Tablet 325 mg PO BEDTIME@1999 RF: 0 Hold Instructions: Resume on 10/18/20. Novolin 70/30 U-100 Insulin 100 unit/mL (70-30) suspension See Rx Instructions .ROUTE .COMPLEX RF: 0 hydrocortisone 2.5 % cream See Rx Instructions .ROUTE .COMPLEX RF: 0 ketoconazole 2 % cream See Rx Instructions .ROUTE .COMPLEX RF: 0 hydralazine 25 mg tablet 25 mg PO TID@0800,1199,1999 RF: 0 insulin lispro [Admelog U-100 Insulin lispro] 100 unit/mL Solution See Rx Instructions .ROUTE .COMPLEX RF: 0 metoprolol tartrate 100 mg tablet 100 mg PO Q12H RF: 0 pantoprazole [Protonix] 40 mg tablet,delayed release (DR/EC) 40 mg PO BID@, RF: 0 albuterol sulfate 90 mcg/actuation HFA aerosol inhaler 1 inh inhalation Q6H PRN (Reason: shortness of breath or wheezing) Qty: 18 RF: 0 furosemide 40 mg Tablet 40 mg PO DAILY@0800 Qty: 30 RF: 0 Vitamin B-12 1 tab PO DAILY@0800 RF: 0 black cohosh 1 tab PO BID@799,1999 RF: 0 digoxin 125 mcg (0.125 mg) tablet 125 mcg PO .every other day RF: 0 Discharge Orders: Discharge ED (Routine); Ordered 01/28/21 Ordered By: Kenrick Treviño Referrals: Ami Perez, [Primary Care Provider] - Discharge Diet: Usual diet Discharge Activity: Resume usual activity Patient Instructions: Opioid Safety Activity Restrictions/Additional Instructions: Case management will call with an appointment to set up a Holter monitor. After that is completed follow-up with your demand planner. If you have worsening problems you can return. Continue to take all of your other medications as previously prescribed. Coding Level of Care Code ED Data Communications Engineer for Dougie Fwd Exam Comprehensive
--- NOTE | 2021-01-28 06:14 | ECG_ITS ---
[facility] Test Date: 2021-01-28 Pat Name: Myesha Parker Department: Room: Gender: Female Side Door Man: : 1950 Requested By: Kenrick Al Order Number: [id number] Reading MD: FIONA EMMANUEL Measurements Intervals [place] Rate: 59 P: -32 NV: 237 QRS: -49 QRSD: 154 T: 14 QT: 438 QTc: 436 Interpretive Statements SINUS BRADYCARDIA WITH FIRST DEGREE AV BLOCK RIGHT BUNDLE BRANCH BLOCK [120+ ms QRS DURATION, UPRIGHT V1, 40+ ms S IN I/aVL/V4/V5/V6] LEFT ANTERIOR FASCICULAR BLOCK [QRS AXIS <= -45, QR IN I, RS IN II] MODERATE VOLTAGE CRITERIA FOR LVH, CONSIDER NORMAL VARIANT [MEETS CRITERIA IN ONE OF: R(aVL), S(V1), R(V5), R(V5/V6)+S(V1)] POSSIBLE SEPTAL MYOCARDIAL INFARCTION [30 ms Q WAVE IN V1/V2], PROBABLY OLD INTERPRETATION BASED ON A DEFAULT AGE OF 40 YEARS Compared to ECG 11/15/2020 18:26:33 First degree AV block now present Atrial fibrillation no longer present Electronically Signed On 01-29-2021 20:22:53 CDT by FIONA EMMANUEL [email or web address]
--- NOTE | 2021-01-28 06:14 | XR_ITS ---
WS: [id number] Portable AP upright chest, 01/28/2021 Clinical Data: chest pain Comparison: Portable chest, 11/15/2020. Findings: No nodules, masses or effusions are seen. The heart is enlarged. The pulmonary vascularity is not increased. No pneumonia or pneumothorax is seen. Monitor leads on the chest wall XR/XR chest 1V portable [id number] Impression: Cardiomegaly.
[2021-01-28 06:16] VITALS: BP 145/61; PULSE 60; RESP 17; O2SAT 97; BMI 38.2
[2021-01-28 06:24] VITALS: BP 133/73; PULSE 58; RESP 16; O2SAT 98
[2021-01-28 06:25] VITALS: BP 145/61; PULSE 65; RESP 17; TEMP 36.6; O2SAT 95
[2021-01-28 06:57] LABS: Basophils % 0.7 %; Eosinophils # 0.1 10^3/uL (0.0-0.8); Eosinophils % 1.9 %; Hematocrit 28.2 % (37.0-47.0); Hemoglobin 8.9 g/dL (11.5-15.3); Lymphocytes # 1.3 10^3/uL (0.8-4.8); Lymphocytes % 24.3 %; Mean Corpuscular HGB Conc 31.6 g/dL (30.0-36.0); Mean Corpuscular Hemoglobin 31.3 pg (28.0-34.0); Mean Corpuscular Volume 99.3 fL (81-99); Mean Platelet Volume 9.7 fL (7.4-10.4); Monocytes # 0.6 10^3/uL (0.2-0.9); Monocytes % 10.6 %; Neutrophils # 3.34 10^3/uL (1.8-7.7); Neutrophils % 62.1 %; Nucleated Red Blood Cells % 0 %; Platelet Count 172 10^3/cmm (130-400); Red Blood Count 2.84 10^6/uL (4.1-5.3); Red Cell Distribution Width 13.2 % (12.1-15.1); White Blood Count 5.4 10^3/uL (4.0-10.0)
[2021-01-28 07:11] LABS: Alanine Aminotransferase 18 U/L (0-33); Albumin Level 3.3 g/dL (3.5-5.2); Alkaline Phosphatase 105 IU/L (35-105); Aspartate Amino Transferase 35 U/L (0-32); Blood Urea Nitrogen 24 mg/dL (8-23); Calcium 8.9 mg/dL (8.5-10.5); Carbon Dioxide 30 mmol/L (22-29); Chloride 99 mmol/L (98-107); Digoxin 0.6 ng/mL (0.6-1.2); Globulin 2.9 g/dL (1.3-4.6); Glucose 195 mg/dL (65-115); Osmolality Calculated 295 mOsm/kg (285-295); Sodium 138 mmol/L (136-145); Total Bilirubin 0.3 mg/dL (0.15-1.2); Total Protein 6.2 g/dL (6.6-8.7)
[2021-01-28 07:13] LABS: Anion Gap 13.2 (5-19); Potassium 4.2 mmol/L (3.5-5.1); Troponin(5th) Baseline 25 ng/L (0-10)
[2021-01-28 07:54] VITALS: BP 125/64; PULSE 59; RESP 16; O2SAT 97
--- NOTE | 2021-01-28 08:14 | ECG_ITS ---
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 Billing And Coding Specialist: : 1950 Requested By: Kenrick Al Order Number: [id number] Reading MD: FIONA EMMANUEL Measurements Intervals [place] Rate: 56 P: MI: QRS: -51 QRSD: 165 T: 11 QT: 473 QTc: 457 Interpretive Statements SINUS RHYTHM RIGHT BUNDLE BRANCH BLOCK [120+ ms QRS DURATION, UPRIGHT V1, 40+ ms S IN I/aVL/V4/V5/V6] LEFT ANTERIOR FASCICULAR BLOCK [QRS AXIS <= -45, QR IN I, RS IN II] POSSIBLE LEFT VENTRICULAR HYPERTROPHY [VOLTAGE CRITERIA PLUS LAE OR QRS WIDENING] POSSIBLE SEPTAL MYOCARDIAL INFARCTION [30 ms Q WAVE IN V1/V2], PROBABLY OLD Compared to ECG 01/28/2021 06:18:13 Sinus bradycardia no longer present First degree AV block no longer present Myocardial infarct finding still present Electronically Signed On 01-29-2021 20:25:32 CDT by FIONA EMMANUEL [id number] paul
[2021-01-28 08:27] LABS: Troponin 5 2HR 23.94 ng/L (0-10)
[2021-01-28 08:31] LABS: Troponin 5 2HR Delta -1.06 ABS# (0-10)
--- NOTE | 2021-01-28 09:02 | DCPLANNER ---
Addendum entered by Vee Lanier 02/08/21 12:16: Patient had a follow up appointment scheduled for heart care on 02.08.21 with Shannan White - patient did attend appointment. marketing manager health communications called heart care about the 48 hour halter monitor that was ordered from the ER, to see if had been scheduled or if the physician still wanted to have the monitor ordered. marketing manager health communications was told that patient did not need to have the 48 hour halter monitor ordered at this time. Original Note: marketing manager health communications was asked to schedule an outpatient 48 halter monitor for patient. marketing manager health communications faxed signed order to heart care for this to be scheduled. [facility] will call patient with appointment information. marketing manager health communications will also schedule a follow up appointment for patient with , at [facility], after the halter monitor.
== END 2021-01-28 09:26 | disposition home or self-care (01) ==
PROVIDERS: Emergency Provider Family Medicine; PCP Internal Medicine
DX: I48.91 Unspecified atrial fibrillation (principal); Z79.82 Long term (current) use of aspirin; Z79.4 Long term (current) use of insulin; I11.0 Hypertensive heart disease with heart failure; I50.9 Heart failure, unspecified; J44.9 Chronic obstructive pulmonary disease, unspecified; E78.5 Hyperlipidemia, unspecified; E11.9 Type 2 diabetes mellitus without complications; Z87.891 Personal history of nicotine dependence
CPT/HCPCS: 36415; 71045; 80053; 80162; 84484; 85025; 93005; 99284

== ENCOUNTER 2021-02-10 01:27 | Emergency (ER) | payer MEDICARE, SELFPAY ==
--- NOTE | 2021-02-10 01:30 | XRR_ITS ---
PROCEDURE INFORMATION: Exam: XR Chest Exam date and time: 02/10/2021 1:30 AM Age: 70 years old Clinical indication: Chest pressure; Patient HX: Left side chest pain. History of afib. ; Additional info: Cp TECHNIQUE: Imaging protocol: XR of the chest. Views: 1 view. COMPARISON: CR XR chest 1V portable [id number] 01/28/2021 6:16 AM FINDINGS: Lungs: Unremarkable. No consolidation. Pleural spaces: Unremarkable. No pleural effusion. No pneumothorax. Heart/Mediastinum: There is mild cardiomegaly. Bones/joints: Unremarkable. XR/XR chest 1V portable [id number] IMPRESSION: Mild cardiomegaly.
[2021-02-10 01:35] VITALS: BP 112/57; PULSE 93; RESP 17; TEMP 36.6; O2SAT 98; BMI 38.2
--- NOTE | 2021-02-10 01:45 | ED_ITS ---
HPI - Chest Pain General: Chief Complaint: Chest Pain Stated Complaint: Chest Pain Pulse 141 Time Seen by Provider: 02/10/21 01:29 Source: patient Mode of arrival: ambulatory Limitations: no limitations History of Present Illness: HPI narrative: 70-year-old female has a history of A. fib states that roughly 1 to 2 hours ago started having some chest pain rating to her left arm and states she took her pulse was 141. She states this lasted roughly 10 minutes and is since resolved. She has no complaints at this time her heart rate here is now in the 80s. She is on rate controlling medicines at home. She denies any fever. Denies any cough. Denies any worsening or improving factors. Associated symptoms: Reports dyspnea; Deny abdominal pain, fever(s), nausea or vomiting Review of Systems Const: Denies: fever(s), chills, body aches or change in appetite Eyes: Denies: blurry vision or eye discomfort ENMT: Denies: throat pain or dental pain Card: Reports: chest pain Resp: Reports: dyspnea GI: Denies: abdominal pain, nausea, vomiting or diarrhea : Denies: dysuria Musc: Denies: neck pain or back pain Skin/Breast: Denies: rash Neuro: Denies: headache(s) Psych: Denies: depression [place]/Lymph: Denies: easy bruising All/Imm: Denies: urticaria PFSH ED PFSH: Medical History Anxiety and depression CHF exacerbation Chronic knee pain Chronic low back pain COPD (chronic obstructive pulmonary disease) Oxygen dependent, 2 L at baseline Coronary artery disease COVID-14 August 2020 Fibromyalgia High risk medication use Hyperlipidemia Hypertension Hypothyroidism Immunization counseling Inflammatory arthritis Intermittent atrial fibrillation Because the patient history of frequent fall she was thought to be high risk for bleeding complications. So she is taking only the aspirin at this time. SHE HAS EASY BRUISING WELL Left renal mass Liver cirrhosis Low back pain of over 3 months duration Lung nodule Narrow complex tachycardia Osteoarthritis of knees, bilateral Poorly controlled diabetes mellitus Recurrent UTI Seronegative rheumatoid arthritis of both hands Unstable angina Urgency incontinence UTI (urinary tract infection) Surgical History History of cardiac cath History of cholecystectomy History of hysterectomy History of knee replacement History of thyroid surgery Family History Other CAD (coronary artery disease) Cancer Denies family history of Anesthesia complication Bleeding disorder Social History Smoking and tobacco status: former smoker Quit status (tobacco): has quit using tobacco Year quit tobacco: 2005 Second hand smoke exposure: No Alcohol intake: never Adopted: No Caregiver/support person: No Lives independently: No Household members: spouse Marital status: Current occupational status: retired History of recent travel: No Current gender identity: Female Physical Exam Const: COMMON NORMALS: no acute distress, patient oriented x3 and healthy appearing HENMT: COMMON NORMALS: normocephalic and atraumatic HEAD & SCALP: normocephalic and atraumatic Eye: COMMON NORMALS: Equal, round and reactive pupils present and EOMs intact bilaterally PUPIL: Yes Equal, round and reactive pupils present Neck/C-Spine: COMMON NORMALS: full ROM and supple Chest: COMMONS NORMALS: normal inspection of the chest and normal palpation of entire chest wall Resp: COMMON NORMALS: normal respiratory effort, No retractions, No use of accessory muscles and clear to auscultation bilaterally AUSCULTATION: clear to auscultation bilaterally Cardio: COMMON NORMALS: regular rate and No murmurs present (Cardio) RATE: regular rate RHYTHM: abnormal rhythm irregularly irregular GI: COMMON NORMALS: Normal to inspection, nondistended, normoactive bowel sounds present, Soft to palpation, non-tender and no masses PALPATION: Yes Soft to palpation Extremity: COMMON NORMALS: normal to inspection and full ROM Neuro: COMMON NORMALS: patient oriented x3, moves all extremities and no focal motor deficits Psych: COMMON NORMALS: mental status grossly normal, Normal thought process present and cooperative THOUGHT PROCESS: Normal thought process present Skin: COMMON NORMALS: no rashes or lesions noted and no wounds GENERAL SKIN EXAM: no rashes or lesions noted Course Vital Signs: Vital signs: Vital Signs Temperature 97.8 F 02/10/21 01:35 Pulse Rate 93 02/10/21 01:35 Respiratory Rate 17 02/10/21 01:35 Blood Pressure 112/57 02/10/21 01:35 Pulse Oximetry 98 02/10/21 01:35 MDM - Chest Pain MDM Narrative: Medical decision making narrative: Patient presents with chest pain and palpitations. Her initial repeat troponin does not have a delta of greater than 10. Her heart rate here has been in the 80s and she is not had any tachycardia. She is stable for discharge and is to follow-up with PCP and return if worsening. She understands agrees to plan. Lab Data: Labs: Lab Results 02/10/21 02/10/21 02/10/21 Range/Units 01:40 01:40 01:40 WBC 6.2 (4.0-10.0) 10^3/ uL RBC 3.08 L (4.1-5.3) 10^6/u L Hgb 9.7 L (11.5-15.3) g/dL Hct 29.3 L (37.0-47.0) % MCV 95.1 (81-99) fL MCH 31.5 (28.0-34.0) pg MCHC 33.1 (30.0-36.0) g/dL RDW 13.0 (12.1-15.1) % Plt Count 213 (130-400) 10^3/c mm MPV 9.7 (7.4-10.4) fL Neut % (Auto) 61.3 % Lymph % (Auto) 26.9 % [place] % (Auto) 8.3 % Eos % (Auto) 2.3 % Baso % (Auto) 1.0 % Neut # (Auto) 3.79 (1.8-7.7) 10^3/u L Lymph # (Auto) 1.7 (0.8-4.8) 10^3/u L [place] # (Auto) 0.5 (0.2-0.9) 10^3/u L Eos # (Auto) 0.1 (0.0-0.8) 10^3/u L Baso # (Auto) 0.1 (0.0-0.1) 10^3/u L Nucleated RBC % (a uto) 0 % Nucleated RBCs # 0.0 /100WBC Sodium 139 (136-145) mmol/L Potassium 4.0 (3.5-5.1) mmol/L Chloride 94 L (98-107) mmol/L Carbon Dioxide 35 H (22-29) mmol/L Anion Gap 14.0 (5-19) BUN 21 (8-23) mg/dL Creatinine 1.0 H (0.5-0.9) mg/dL GFR Calculation Not Reportable Glucose 161 H (65-115) mg/dL Calculated Osmolal ity 294 (285-295) mOsm/k g Calcium 9.3 (8.5-10.5) mg/dL Total Bilirubin 0.3 (0.15-1.2) mg/dL AST 37 H (0-32) U/L ALT 23 (0-33) U/L Alkaline Phosphata se 109 H (35-105) IU/L Troponin T Baselin e 31 H (0-10) ng/L Troponin T 120 Min [place] (0-10) ng/L Delta Troponin T (0-10) ABS# Total Protein 6.2 L (6.6-8.7) g/dL Albumin 3.8 (3.5-5.2) g/dL Globulin 2.4 (1.3-4.6) g/dL Digoxin (0.6-1.2) ng/mL 02/10/21 02/10/21 Range/Units 01:40 03:37 WBC (4.0-10.0) 10^3/ uL RBC (4.1-5.3) 10^6/u L Hgb (11.5-15.3) g/dL Hct (37.0-47.0) % MCV (81-99) fL MCH (28.0-34.0) pg MCHC (30.0-36.0) g/dL RDW (12.1-15.1) % Plt Count (130-400) 10^3/c mm MPV (7.4-10.4) fL Neut % (Auto) % Lymph % (Auto) % [place] % (Auto) % Eos % (Auto) % Baso % (Auto) % Neut # (Auto) (1.8-7.7) 10^3/u L Lymph # (Auto) (0.8-4.8) 10^3/u L [place] # (Auto) (0.2-0.9) 10^3/u L Eos # (Auto) (0.0-0.8) 10^3/u L Baso # (Auto) (0.0-0.1) 10^3/u L Nucleated RBC % (a uto) % Nucleated RBCs # /100WBC Sodium (136-145) mmol/L Potassium (3.5-5.1) mmol/L Chloride (98-107) mmol/L Carbon Dioxide (22-29) mmol/L Anion Gap (5-19) BUN (8-23) mg/dL Creatinine (0.5-0.9) mg/dL GFR Calculation Glucose (65-115) mg/dL Calculated Osmolal ity (285-295) mOsm/k g Calcium (8.5-10.5) mg/dL Total Bilirubin (0.15-1.2) mg/dL AST (0-32) U/L ALT (0-33) U/L Alkaline Phosphata se (35-105) IU/L Troponin T Baselin e (0-10) ng/L Troponin T 120 Min [place] 27.95 H (0-10) ng/L Delta Troponin T -3.05 L (0-10) ABS# Total Protein (6.6-8.7) g/dL Albumin (3.5-5.2) g/dL Globulin (1.3-4.6) g/dL Digoxin 0.8 (0.6-1.2) ng/mL Imaging Data^: CXR: Attestation: I personally reviewed and interpreted this imaging study as follows: My impression: no acute abnormality EKG Data^: EKG 1: Attestation: I personally reviewed and interpreted this EKG as follows: EKG interpretation date: 02/10/21 EKG interpretation time: 01:37 Interpretation: afib hr [address] or twave abnormalities qrs 164 qtc 452 EKG 2: Attestation: I personally reviewed and interpreted this EKG as follows: EKG interpretation date: 02/10/21 EKG interpretation time: 03:41 Interpretation: afib hr [address] or t wave abnormalities qrs 155 qtc 473 Discharge Plan Discharge Patient Disposition: Home Clinical Impression: Chest pain Qualifiers: Chest pain type: unspecified Qualified Code(s): R07.9 - Chest pain, unspecified Atrial fibrillation Qualifiers: Atrial fibrillation type: unspecified Qualified Code(s): I48.91 - Unspecified atrial fibrillation Condition: Stable Prescriptions: No Action ferrous gluconate 324 mg (37.5 mg iron) tablet 324 mg PO DAILY@12 RF: 0 sulfasalazine 500 mg tablet 0.5 g PO BID@08,17 Qty: 60 RF: 3 tizanidine 4 mg tablet 4 mg PO TID PRN (Reason: muscle spasticity) 30 Days Qty: 90 RF: 2 hydrocodone-acetaminophen 7.5-325 mg tablet 1 tab PO TID PRN (Reason: pain) 30 Days Qty: 90 RF: 0 hydrocodone-acetaminophen 7.5-325 mg tablet 1 tab PO TID@08,17, PRN (Reason: pain) 30 Days Qty: 90 RF: 0 tramadol 50 mg tablet 100 mg PO BID PRN (Reason: Pain) 30 Days Qty: 180 RF: 1 Humira Pen 40 mg/0.8 mL pen injector kit 40 mg SUBCUT Q14D Qty: 2 RF: 3 levothyroxine 175 mcg capsule 175 mcg PO DAILY@08 RF: 0 potassium chloride 20 mEq tablet extended release 20 meq PO BID@08,17 RF: 0 aripiprazole [Abilify] 5 mg tablet 5 mg PO DAILY@08 Qty: 30 RF: 2 duloxetine [Cymbalta] 30 mg capsule,delayed release(DR/EC) 30 mg PO DAILY@08 Qty: 30 RF: 2 duloxetine [Cymbalta] 60 mg capsule,delayed release(DR/EC) 60 mg PO DAILY@08 Qty: 30 RF: 2 buspirone 10 mg tablet 10 mg PO BID@08,17 Qty: 60 RF: 2 nitroglycerin [Nitrostat] 0.4 mg tablet, sublingual 0.4 mg SUBLINGUAL Q5M PRN (Reason: Chest Pain) Qty: 30 RF: 3 furosemide 40 mg tablet 40 mg PO DAILY Qty: 90 RF: 3 folic acid 1 mg tablet 1 mg PO DAILY@08 Qty: 90 RF: 1 amlodipine 10 mg tablet 10 mg PO DAILY@08 Qty: 90 RF: 3 methotrexate sodium 2.5 mg tablet 7.5 mg PO .Q7days Qty: 15 RF: 3 atorvastatin [Lipitor] 40 mg Tablet 40 mg PO DAILY@0800 RF: 0 loperamide [Anti-Diarrheal (loperamide)] 2 mg Tablet 2 - 4 mg PO PRN PRN (Reason: Diarrhea) RF: 0 acetaminophen [Arthritis Pain Reliever] 650 mg Tablet Extended Release 650 mg PO PRN PRN (Reason: Pain) RF: 0 docusate sodium [Stool Softener] 100 mg Capsule 200 mg PO BID@, RF: 0 zinc 50 mg Tablet 50 mg PO DAILY@12 RF: 0 pyridoxine (vitamin B6) [Vitamin B-6] 100 mg Tablet 100 mg PO DAILY@08 RF: 0 vitamin E 400 unit Capsule 400 unit PO DAILY@08 RF: 0 loratadine 10 mg Tablet 20 mg PO DAILY@08 RF: 0 magnesium L-lactate [Magtab] 84 mg tablet extended release 84 mg PO BID@, RF: 0 cholecalciferol (vitamin D3) [Vitamin D3] 25 mcg (1,000 unit) Tablet 2,000 unit PO DAILY@ RF: 0 omega 1-plv-dge-fish oil [[place]ra [place]-3] 500-1,000 mg Capsule 2 cap PO DAILY@ RF: 0 albuterol sulfate 2.5 mg /3 mL (0.083 %) Solution For Nebulization 2.5 mg inhalation TID PRN (Reason: Shortness Of Breath) RF: 0 aspirin 325 mg Tablet 325 mg PO BEDTIME@1999 RF: 0 Hold Instructions: Resume on 10/18/20. Novolin 70/30 U-100 Insulin 100 unit/mL (70-30) suspension See Rx Instructions .ROUTE .COMPLEX RF: 0 hydrocortisone 2.5 % cream See Rx Instructions .ROUTE .COMPLEX RF: 0 ketoconazole 2 % cream See Rx Instructions .ROUTE .COMPLEX RF: 0 hydralazine 25 mg tablet 25 mg PO TID@0800,1199,1999 RF: 0 insulin lispro [Admelog U-100 Insulin lispro] 100 unit/mL Solution See Rx Instructions .ROUTE .COMPLEX RF: 0 metoprolol tartrate 100 mg tablet 100 mg PO Q12H RF: 0 pantoprazole [Protonix] 40 mg tablet,delayed release (DR/EC) 40 mg PO BID@, RF: 0 albuterol sulfate 90 mcg/actuation HFA aerosol inhaler 1 inh inhalation Q6H PRN (Reason: shortness of breath or wheezing) Qty: 18 RF: 0 Vitamin B-12 1 tab PO DAILY@0800 RF: 0 black cohosh 1 tab PO BID@0800,1999 RF: 0 digoxin 125 mcg (0.125 mg) tablet 125 mcg PO .every other day RF: 0 Discharge Orders: Discharge ED (Routine); Ordered 02/10/21 Ordered By: Karma Garner Referrals: Ami Perez DO [Primary Care Provider] - 1-3 days Discharge Diet: Advance as tolerated Discharge Activity: Resume usual activity Patient Instructions: Chest Pain (ED) Coding Level of Care Code ED Sr. [employer] Fwd Exam Comprehensive
[2021-02-10 01:50] LABS: Basophils # 0.1 10^3/uL (0.0-0.1); Eosinophils # 0.1 10^3/uL (0.0-0.8); Eosinophils % 2.3 %; Hematocrit 29.3 % (37.0-47.0); Hemoglobin 9.7 g/dL (11.5-15.3); Lymphocytes # 1.7 10^3/uL (0.8-4.8); Lymphocytes % 26.9 %; Mean Corpuscular HGB Conc 33.1 g/dL (30.0-36.0); Mean Corpuscular Hemoglobin 31.5 pg (28.0-34.0); Mean Corpuscular Volume 95.1 fL (81-99); Mean Platelet Volume 9.7 fL (7.4-10.4); Monocytes # 0.5 10^3/uL (0.2-0.9); Monocytes % 8.3 %; Neutrophils # 3.79 10^3/uL (1.8-7.7); Neutrophils % 61.3 %; Nucleated Red Blood Cells % 0 %; Platelet Count 213 10^3/cmm (130-400); Red Blood Count 3.08 10^6/uL (4.1-5.3); White Blood Count 6.2 10^3/uL (4.0-10.0)
[2021-02-10 02:06] LABS: Troponin(5th) Baseline 31 ng/L (0-10)
[2021-02-10 02:09] LABS: Alanine Aminotransferase 23 U/L (0-33); Albumin Level 3.8 g/dL (3.5-5.2); Alkaline Phosphatase 109 IU/L (35-105); Aspartate Amino Transferase 37 U/L (0-32); Blood Urea Nitrogen 21 mg/dL (8-23); Calcium 9.3 mg/dL (8.5-10.5); Carbon Dioxide 35 mmol/L (22-29); Chloride 94 mmol/L (98-107); Digoxin 0.8 ng/mL (0.6-1.2); Globulin 2.4 g/dL (1.3-4.6); Glucose 161 mg/dL (65-115); Osmolality Calculated 294 mOsm/kg (285-295); Sodium 139 mmol/L (136-145); Total Bilirubin 0.3 mg/dL (0.15-1.2); Total Protein 6.2 g/dL (6.6-8.7)
--- NOTE | 2021-02-10 03:30 | ECG_ITS ---
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 Measurements Intervals [place] Rate: 86 P: [place]: QRS: -72 QRSD: 155 T: 46 QT: 429 QTc: 516 Interpretive Statements ATRIAL FIBRILLATION RIGHT BUNDLE BRANCH BLOCK [120+ ms QRS DURATION, UPRIGHT V1, 40+ ms S IN I/aVL/V4/V5/V6] LEFT ANTERIOR FASCICULAR BLOCK [QRS AXIS <= -45, QR IN I, RS IN II] PROBABLE SEPTAL MYOCARDIAL INFARCTION [35 ms Q WAVE IN V1/V2], OF INDETERMINATE AGE Compared to ECG 01/28/2021 08:23:22 Sinus rhythm no longer present Myocardial infarct finding still present Electronically Signed On 02-10-2021 18:30:45 CDT by Victoriano White M.D. [id number]
[2021-02-10 03:58] LABS: Troponin 5 2HR 27.95 ng/L (0-10); Troponin 5 2HR Delta -3.05 ABS# (0-10)
[2021-02-10 04:17] VITALS: BP 131/76; PULSE 88; RESP 18; O2SAT 96
== END 2021-02-10 04:18 | disposition home or self-care (01) ==
PROVIDERS: Emergency Provider Emergency Medicine; PCP Internal Medicine
DX: R07.9 Chest pain, unspecified (principal); I48.91 Unspecified atrial fibrillation; Z79.82 Long term (current) use of aspirin; Z79.4 Long term (current) use of insulin; I11.0 Hypertensive heart disease with heart failure; I50.9 Heart failure, unspecified; J44.9 Chronic obstructive pulmonary disease, unspecified; I25.10 Atherosclerotic heart disease of native coronary artery without angina pectoris; E78.5 Hyperlipidemia, unspecified; Z87.891 Personal history of nicotine dependence
CPT/HCPCS: 36415; 71045; 80053; 80162; 84484; 85025; 93005; 99283

== ENCOUNTER 2021-02-14 15:12 | Emergency (ER) | payer MEDICARE, SELFPAY ==
--- NOTE | 2021-02-14 15:55 | ECG_ITS ---
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 Measurements Intervals [place] Rate: 58 P: 259 [place]: 230 QRS: -46 QRSD: 152 T: 14 QT: 431 QTc: 425 Interpretive Statements SINUS BRADYCARDIA WITH FIRST DEGREE AV BLOCK RIGHT BUNDLE BRANCH BLOCK [120+ ms QRS DURATION, UPRIGHT V1, 40+ ms S IN I/aVL/V4/V5/V6] LEFT ANTERIOR FASCICULAR BLOCK [QRS AXIS <= -45, QR IN I, RS IN II] MODERATE VOLTAGE CRITERIA FOR LVH, CONSIDER NORMAL VARIANT [MEETS CRITERIA IN ONE OF: R(aVL), S(V1), R(V5), R(V5/V6)+S(V1)] POSSIBLE SEPTAL MYOCARDIAL INFARCTION [30 ms Q WAVE IN V1/V2], OF INDETERMINATE AGE Compared to ECG 02/10/2021 03:41:27 First degree AV block now present Atrial fibrillation no longer present Myocardial infarct finding still present Electronically Signed On 02-14-2021 19:00:52 CDT by Keisha Coronel M.D. [id number]
--- NOTE | 2021-02-14 15:55 | XRR_ITS ---
PROCEDURE INFORMATION: Exam: XR Chest Exam date and time: 02/14/2021 3:55 PM Age: 70 years old Clinical indication: Shortness of breath; Angina pectoris; Patient HX: Chest pain, SOB, weakness, headache; Additional info: Dizzy; Body aches/chills TECHNIQUE: Imaging protocol: XR of the chest. Views: 1 view. COMPARISON: CR (CHEST, ) 02/10/2021 1:28 AM FINDINGS: Lungs: Unremarkable. No consolidation. Pleural spaces: Unremarkable. No pleural effusion. No pneumothorax. Heart/Mediastinum: Unremarkable. No cardiomegaly. Bones/joints: Unremarkable. XR/XR chest 1V portable [id number] IMPRESSION: No acute findings.
[2021-02-14 16:07] VITALS: BP 113/67; PULSE 60; RESP 16; TEMP 36.6; O2SAT 96; BMI 37.0
[2021-02-14 19:24] LABS: Add Urine Microscopic? NO; Charge for UA Resulting for Rev
[2021-02-14 19:29] LABS: Bilirubin Urine Neg (Negative); Blood Urine Neg (Negative); Glucose Urine UA Norm (Normal); Ketones Urine Negative (Negative); Leukocyte Esterase Urine Negative (Negative); Nitrate Urine Negative (Negative); Protein Urine Neg (Negative); Specific Gravity, Urine 1.015 (1.005-1.030); Urine Appearance Clear (CLEAR); Urine Color Yellow (Yellow); Urobilinogen Urine Norm (Negative); pH Urine 5 (5-7)
--- NOTE | 2021-02-14 19:55 | W.ED.WEAKNES ---
HPI - Weakness General: Chief complaint: Weakness Stated complaint: Frequent Falls, Dizziness, Body Aches, Cold Chills Time Seen by Provider: 02/14/21 19:40 History of Present Illness: HPI Narrative: Patient is a 70-year-old female comes to the ED with multiple complaints, but has a main complaint of generalized weakness. She states that her weakness is chronic issue that continues to progress. Patient has a history of A. fib, heart failure, CAD, anemia, COPD, hypertension, hypothyroidism and fibromyalgia. Patient is on 2.5 L of oxygen via nasal cannula at home continuously. She states she has been having some generalized weakness over the past week. She is also complaining of some bladder pain and dysuria that started approximately 3 days ago. She reports she has had frequent falls and states that her last fall was over a week ago she came to the ED and was evaluated then. Since fall she is having pain all over her body. Patient also states that she was having some chest pain around 11:00 today and it resolved at around 2 PM. Associated symptoms: Reports chest pain (resolved before coming to the ED) and dysuria; Denies chills, fever(s), headache(s), nausea or vomiting Review of Systems Const: Denies: fever(s), chills or fatigue Eyes: Denies: change in vision or eye discomfort ENMT: Denies: throat pain, odynophagia, nasal discharge or nasal congestion Card: Reports: chest pain (resolved before coming to the ED); Denies: palpitations, edema, swelling of feet/ankles, dyspnea on exertion or orthopnea Resp: Denies: dyspnea, productive cough or non-productive cough GI: Denies: abdominal pain, nausea, vomiting, diarrhea, constipation or hematochezia : Reports: dysuria and pelvic pain (bladder pain); Denies: flank pain or hematuria Musc: Denies: neck pain, back pain or extremity swelling Skin/Breast: Denies: rash or new lesions Neuro: Denies: headache(s), numbness in extremities or weakness in extremities PFS ED PFSH: Medical History Anxiety and depression CHF exacerbation Chronic knee pain Chronic low back pain COPD (chronic obstructive pulmonary disease) Oxygen dependent, 2 L at baseline Coronary artery disease COVID-14 August 2020 Fibromyalgia High risk medication use Hyperlipidemia Hypertension Hypothyroidism Immunization counseling Inflammatory arthritis Intermittent atrial fibrillation Because the patient history of frequent fall she was thought to be high risk for bleeding complications. So she is taking only the aspirin at this time. SHE HAS EASY BRUISING WELL Left renal mass Liver cirrhosis Low back pain of over 3 months duration Lung nodule Narrow complex tachycardia Osteoarthritis of knees, bilateral Poorly controlled diabetes mellitus Recurrent UTI Seronegative rheumatoid arthritis of both hands Unstable angina Urgency incontinence UTI (urinary tract infection) Surgical History History of cardiac cath History of cholecystectomy History of hysterectomy History of knee replacement History of thyroid surgery Family History Other CAD (coronary artery disease) Cancer Denies family history of Anesthesia complication Bleeding disorder Social History Smoking and tobacco status: former smoker Quit status (tobacco): has quit using tobacco Year quit tobacco: 2005 Second hand smoke exposure: No Alcohol intake: never Adopted: No Caregiver/support person: No Lives independently: No Household members: spouse Marital status: Current occupational status: retired History of recent travel: No Current gender identity: Female Physical Exam Const: COMMON NORMALS: no acute distress, patient oriented x3 and alert GENERAL APPEARANCE: cooperative and comfortable HENMT: COMMON NORMALS: normocephalic HEAD & SCALP: normocephalic MOUTH: Normal oral and palatal mucosa present THROAT: posterior oropharynx normal and uvula midline Neck/C-Spine: COMMON NORMALS: supple GENERAL: Yes normal visual inspection Resp: COMMON NORMALS: normal respiratory effort, No retractions, No use of accessory muscles and clear to auscultation bilaterally AUSCULTATION: clear to auscultation bilaterally Cardio: COMMON NORMALS: regular rate, S1 normal heart sound present, S2 normal heart sound present, No gallops present (Cardio), No clicks present (Cardio), No murmurs present (Cardio) and Peripheral pulses 2+ throughout RATE: regular rate RHYTHM: abnormal rhythm irregularly irregular HEART SOUNDS: S1 normal heart sound present and S2 normal heart sound present PERIPHERAL PULSES: Peripheral pulses 2+ throughout GI: COMMON NORMALS: Normal to inspection, nondistended, normoactive bowel sounds present, Soft to palpation, non-tender and no masses PALPATION: Yes Soft to palpation : COMMON NORMALS: Yes no CVA tenderness BLADDER/KIDNEY EXAM: Yes no CVA tenderness Back/Pelvis: COMMON NORMALS: no CVA tenderness Extremity: COMMON NORMALS: normal to inspection Neuro: COMMON NORMALS: patient oriented x3 and moves all extremities SENSORIUM/ORIENTATION: Yes alert Skin: GENERAL SKIN EXAM: dry skin Course Vital Signs: Vital signs: Vital Signs Temperature 97.9 F 02/14/21 16:07 Pulse Rate 62 02/14/21 22:22 Respiratory Rate 18 02/14/21 22:22 Blood Pressure 156/73 02/14/21 22:22 Pulse Oximetry 96 02/14/21 22:22 MDM - Weakness MDM Narrative: Medical decision making narrative: Patient is a 70-year-old female comes to the ED with multiple complaints but her main complaint is generalized weakness. Patient describes having chronic weakness but she is also complaining of having some pain all over her body and dysuria and lower pelvic/bladder pain. Patient has a past medical history of heart failure, A. fib, anemia, COPD and fibromyalgia and is on continuous O2 2.5 L via nasal cannula at home. She says she had some mild chest pain earlier today that resolved and currently has no chest pain here in the ED. Vitals stable patient has controlled heart rate of 55 to 60 bpm. Patient's exam was benign. Patient's hemoglobin was 9.3, which is slightly down from 9.7 on February 10. Her creatinine was 1.3 but rest of her CBC and CMP were unremarkable. Her troponin still remains at 27 which is a baseline level for her. BNP 124. Chest x-ray showed no acute findings. EKG showed sinus bradycardia with first-degree AV block and a rate was around 55 to 58 bpm with no acute IL changes seen. Patient diagnosed with generalized weakness, anemia and elevated creatinine level. She was discharged home and told to follow-up with her PCP in 3 to 5 days to recheck hemoglobin and creatinine levels. Return to ED precautions given. Patient understood and agreed with plan. Lab Data: Attestation: I reviewed the patient's lab results. Labs: Lab Results 02/14/21 02/14/21 02/14/21 Range/Units 19:05 20:05 20:05 WBC 4.7 (4.0-10.0) 10^3/ uL RBC 2.94 L (4.1-5.3) 10^6/u L Hgb 9.3 L (11.5-15.3) g/dL Hct 27.8 L (37.0-47.0) % MCV 94.6 (81-99) fL MCH 31.6 (28.0-34.0) pg MCHC 33.5 (30.0-36.0) g/dL RDW 13.3 (12.1-15.1) % Plt Count 167 (130-400) 10^3/c mm MPV 9.3 (7.4-10.4) fL Neut % (Auto) 58.9 % Lymph % (Auto) 29.5 % [facility] % (Auto) 7.3 % Eos % (Auto) 3.2 % Baso % (Auto) 0.9 % Neut # (Auto) 2.76 (1.8-7.7) 10^3/u L Lymph # (Auto) 1.4 (0.8-4.8) 10^3/u L [facility] # (Auto) 0.3 (0.2-0.9) 10^3/u L Eos # (Auto) 0.2 (0.0-0.8) 10^3/u L Baso # (Auto) 0.0 (0.0-0.1) 10^3/u L Nucleated RBC % (a uto) 0 % Nucleated RBCs # 0.0 /100WBC Sodium 139 (136-145) mmol/L Potassium 3.9 (3.5-5.1) mmol/L Chloride 94 L (98-107) mmol/L Carbon Dioxide 36 H (22-29) mmol/L Anion Gap 12.9 (5-19) BUN 29 H (8-23) mg/dL Creatinine 1.3 H (0.5-0.9) mg/dL GFR Calculation Not Reportable Glucose 162 H (65-115) mg/dL Calculated Osmolal ity 297 H (285-295) mOsm/k g Calcium 9.5 (8.5-10.5) mg/dL Total Bilirubin 0.3 (0.15-1.2) mg/dL AST 34 H (0-32) U/L ALT 20 (0-33) U/L Alkaline Phosphata se 96 (35-105) IU/L Troponin T Baselin e (0-10) ng/L NT-Pro-B Natriuret Pep (0-125) pg/mL Total Protein 6.1 L (6.6-8.7) g/dL Albumin 3.8 (3.5-5.2) g/dL Globulin 2.3 (1.3-4.6) g/dL Urine Color Yellow (Yellow) Urine Appearance Clear (CLEAR) Urine pH 5 (5-7) Ur Specific Gravit y 1.015 (1.005-1.030) Urine Protein Neg (Negative) Urine Glucose (UA) Norm (Normal) Urine Ketones Negative (Negative) Urine Blood Neg (Negative) Urine Nitrate Negative (Negative) Urine Bilirubin Neg (Negative) Urine Urobilinogen Norm (Negative) mg/dL Ur Leukocyte Dorota ase Negative (Negative) 02/14/21 02/14/21 Range/Units 20:05 20:05 WBC (4.0-10.0) 10^3/ uL RBC (4.1-5.3) 10^6/u L Hgb (11.5-15.3) g/dL Hct (37.0-47.0) % MCV (81-99) fL MCH (28.0-34.0) pg MCHC (30.0-36.0) g/dL RDW (12.1-15.1) % Plt Count (130-400) 10^3/c mm MPV (7.4-10.4) fL Neut % (Auto) % Lymph % (Auto) % [facility] % (Auto) % Eos % (Auto) % Baso % (Auto) % Neut # (Auto) (1.8-7.7) 10^3/u L Lymph # (Auto) (0.8-4.8) 10^3/u L [facility] # (Auto) (0.2-0.9) 10^3/u L Eos # (Auto) (0.0-0.8) 10^3/u L Baso # (Auto) (0.0-0.1) 10^3/u L Nucleated RBC % (a uto) % Nucleated RBCs # /100WBC Sodium (136-145) mmol/L Potassium (3.5-5.1) mmol/L Chloride (98-107) mmol/L Carbon Dioxide (22-29) mmol/L Anion Gap (5-19) BUN (8-23) mg/dL Creatinine (0.5-0.9) mg/dL GFR Calculation Glucose (65-115) mg/dL Calculated Osmolal ity (285-295) mOsm/k g Calcium (8.5-10.5) mg/dL Total Bilirubin (0.15-1.2) mg/dL AST (0-32) U/L ALT (0-33) U/L Alkaline Phosphata se (35-105) IU/L Troponin T Baselin e 27 H (0-10) ng/L NT-Pro-B Natriuret Pep 124 (0-125) pg/mL Total Protein (6.6-8.7) g/dL Albumin (3.5-5.2) g/dL Globulin (1.3-4.6) g/dL Urine Color (Yellow) Urine Appearance (CLEAR) Urine pH (5-7) Ur Specific Gravit y (1.005-1.030) Urine Protein (Negative) Urine Glucose (UA) (Normal) Urine Ketones (Negative) Urine Blood (Negative) Urine Nitrate (Negative) Urine Bilirubin (Negative) Urine Urobilinogen (Negative) mg/dL Ur Leukocyte Dorota ase (Negative) Imaging Data^: CXR: Attestation: I personally reviewed and interpreted this imaging study as follows: Radiologist's impression: [address] [address] XRay Report Signed Patient: Myesha Parker Unit #: [id number] : 1950 Age/Sex: 70 / F ADM Date: 02/14/21 Loc: ER Room/Bed: Attending Dr: Ordering Provider/Ordering MD: Christiana Burns Date of Service: 02/14/21 Procedure(s): XR chest 1V portable [id number] Accession Number(s): [id number] Report Number: [id number] PROCEDURE INFORMATION: Exam: XR Chest Exam date and time: 02/14/2021 3:55 PM Age: 70 years old Clinical indication: Shortness of breath; Angina pectoris; Patient HX: Chest pain, SOB, weakness, headache; Additional info: Dizzy; Body aches/chills TECHNIQUE: Imaging protocol: XR of the chest. Views: 1 view. COMPARISON: CR (CHEST, ) 02/10/2021 1:28 AM FINDINGS: Lungs: Unremarkable. No consolidation. Pleural spaces: Unremarkable. No pleural effusion. No pneumothorax. Heart/Mediastinum: Unremarkable. No cardiomegaly. Bones/joints: Unremarkable. XR/XR chest 1V portable [id number] IMPRESSION: No acute findings. Dictated By: Davian Uriarte Signed By: Davian Uriarte Signed Date/Time: 02/14/211718 DD/ 17 EKG Data^: EKG 1: Attestation: I personally reviewed and interpreted this EKG as follows: EKG interpretation date: 02/14/21 Interpretation: Sinus bradycardia with first-degree AV block., [address] segment elevation or depression of any concern. Dr. Garner evaluated EKG as well did not see any acute findings. EKG 2: Attestation: I personally reviewed and interpreted this EKG as follows: EKG interpretation date: 02/14/21 Interpretation: 2-hour EKG. Sinus bradycardia with first-degree AV block, 56 bpm, no ST segment elevation or depression seen. No acute change compared to baseline. Discharge Plan Discharge Patient Disposition: Home Clinical Impression: Generalized weakness, Elevated serum creatinine Anemia Qualifiers: Anemia type: unspecified type Qualified Code(s): D64.9 - Anemia, unspecified Condition: Stable Prescriptions: No Action ferrous gluconate 324 mg (37.5 mg iron) tablet 324 mg PO DAILY@12 RF: 0 sulfasalazine 500 mg tablet 0.5 g PO BID@ Qty: 60 RF: 3 tizanidine 4 mg tablet 4 mg PO TID PRN (Reason: muscle spasticity) 30 Days Qty: 90 RF: 2 hydrocodone-acetaminophen 7.5-325 mg tablet 1 tab PO TID PRN (Reason: pain) 30 Days Qty: 90 RF: 0 hydrocodone-acetaminophen 7.5-325 mg tablet 1 tab PO TID@,, PRN (Reason: pain) 30 Days Qty: 90 RF: 0 tramadol 50 mg tablet 100 mg PO BID PRN (Reason: Pain) 30 Days Qty: 180 RF: 1 Humira Pen 40 mg/0.8 mL pen injector kit 40 mg SUBCUT Q14D Qty: 2 RF: 3 levothyroxine 175 mcg capsule 175 mcg PO DAILY@08 RF: 0 potassium chloride 20 mEq tablet extended release 20 meq PO BID@, RF: 0 aripiprazole [Abilify] 5 mg tablet 5 mg PO DAILY@08 Qty: 30 RF: 2 duloxetine [Cymbalta] 30 mg capsule,delayed release(DR/EC) 30 mg PO DAILY@08 Qty: 30 RF: 2 duloxetine [Cymbalta] 60 mg capsule,delayed release(DR/EC) 60 mg PO DAILY@08 Qty: 30 RF: 2 buspirone 10 mg tablet 10 mg PO BID@, Qty: 60 RF: 2 nitroglycerin [Nitrostat] 0.4 mg tablet, sublingual 0.4 mg SUBLINGUAL Q5M PRN (Reason: Chest Pain) Qty: 30 RF: 3 furosemide 40 mg tablet 40 mg PO DAILY Qty: 90 RF: 3 folic acid 1 mg tablet 1 mg PO DAILY@08 Qty: 90 RF: 1 amlodipine 10 mg tablet 10 mg PO DAILY@08 Qty: 90 RF: 3 methotrexate sodium 2.5 mg tablet 7.5 mg PO .Q7days Qty: 15 RF: 3 atorvastatin [Lipitor] 40 mg Tablet 40 mg PO DAILY@0800 RF: 0 loperamide [Anti-Diarrheal (loperamide)] 2 mg Tablet 2 - 4 mg PO PRN PRN (Reason: Diarrhea) RF: 0 acetaminophen [Arthritis Pain Reliever] 650 mg Tablet Extended Release 650 mg PO PRN PRN (Reason: Pain) RF: 0 docusate sodium [Stool Softener] 100 mg Capsule 200 mg PO BID@, RF: 0 zinc 50 mg Tablet 50 mg PO DAILY@12 RF: 0 pyridoxine (vitamin B6) [Vitamin B-6] 100 mg Tablet 100 mg PO DAILY@08 RF: 0 vitamin E 400 unit Capsule 400 unit PO DAILY@08 RF: 0 loratadine 10 mg Tablet 20 mg PO DAILY@08 RF: 0 magnesium L-lactate [Magtab] 84 mg tablet extended release 84 mg PO BID@,17 RF: 0 cholecalciferol (vitamin D3) [Vitamin D3] 25 mcg (1,000 unit) Tablet 2,000 unit PO DAILY@08 RF: 0 omega 7-utb-vuo-fish oil [Ultra [place]-3] 500-1,000 mg Capsule 2 cap PO DAILY@23 RF: 0 albuterol sulfate 2.5 mg /3 mL (0.083 %) Solution For Nebulization 2.5 mg inhalation TID PRN (Reason: Shortness Of Breath) RF: 0 aspirin 325 mg Tablet 325 mg PO BEDTIME@1999 RF: 0 Hold Instructions: Resume on 10/18/20. Novolin 70/30 U-100 Insulin 100 unit/mL (70-30) suspension See Rx Instructions .ROUTE .COMPLEX RF: 0 hydrocortisone 2.5 % cream See Rx Instructions .ROUTE .COMPLEX RF: 0 ketoconazole 2 % cream See Rx Instructions .ROUTE .COMPLEX RF: 0 hydralazine 25 mg tablet 25 mg PO TID@0800,1200,1999 RF: 0 insulin lispro [Admelog U-100 Insulin lispro] 100 unit/mL Solution See Rx Instructions .ROUTE .COMPLEX RF: 0 metoprolol tartrate 100 mg tablet 100 mg PO Q12H RF: 0 pantoprazole [Protonix] 40 mg tablet,delayed release (DR/EC) 40 mg PO BID@08,17 RF: 0 albuterol sulfate 90 mcg/actuation HFA aerosol inhaler 1 inh inhalation Q6H PRN (Reason: shortness of breath or wheezing) Qty: 18 RF: 0 Vitamin B-12 1 tab PO DAILY@0800 RF: 0 black cohosh 1 tab PO BID@0800,2000 RF: 0 digoxin 125 mcg (0.125 mg) tablet 125 mcg PO .every other day RF: 0 Discharge Orders: Discharge ED (Routine); Ordered 02/14/21 Ordered By: Dennis Fish Referrals: Ami Perez DO [Primary Care Provider] - Discharge Diet: Regular Discharge Activity: Increase activity as tolerated Patient Instructions: Anemia (ED), Weakness (Generalized) Activity Restrictions/Additional Instructions: Follow-up with medical provider as directed in 3 to 5 days to recheck hemoglobin and creatinine level. Continue taking all home medications as prescribed. Return to the ER or your medical provider if condition worsens. Please read and understand discharge instructions. Thank you for choosing [facility] for your healthcare needs today. Please realize this is an emergency room and that we are providing you with a medical screening exam and this may not be complete and all inclusive of all the testing and or work up that you may need to determine your ailment or severity of your illness. It is very important that you follow up as instructed or that you return to the Emergency Department should you have concerns or if your condition changes or worsens in any way. Coding Level of Care Code ED [employer] Supervisor for Dougie Fwsaul Exam Comprehensive
--- NOTE | 2021-02-14 20:02 | ECG_ITS ---
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1950 Requested By: Dennis Fish Order Number: [id number] Reading MD: FIONA EMMANUEL Measurements Intervals [place] Rate: 56 P: 218 MS: 237 QRS: -52 QRSD: 160 T: 10 QT: 475 QTc: 462 Interpretive Statements SINUS BRADYCARDIA WITH FIRST DEGREE AV BLOCK RIGHT BUNDLE BRANCH BLOCK [120+ ms QRS DURATION, UPRIGHT V1, 40+ ms S IN I/aVL/V4/V5/V6] LEFT ANTERIOR FASCICULAR BLOCK [QRS AXIS <= -45, QR IN I, RS IN II] POSSIBLE LEFT VENTRICULAR HYPERTROPHY [VOLTAGE CRITERIA PLUS LAE OR QRS WIDENING] POSSIBLE SEPTAL MYOCARDIAL INFARCTION [30 ms Q WAVE IN V1/V2], OF INDETERMINATE AGE Compared to ECG 02/14/2021 18:33:43 No significant changes Electronically Signed On 02-15-2021 18:40:28 CDT by FIONA EMMANUEL [email or web address]
[2021-02-14 20:15] LABS: Basophils % 0.9 %; Eosinophils # 0.2 10^3/uL (0.0-0.8); Eosinophils % 3.2 %; Hematocrit 27.8 % (37.0-47.0); Hemoglobin 9.3 g/dL (11.5-15.3); Lymphocytes # 1.4 10^3/uL (0.8-4.8); Lymphocytes % 29.5 %; Mean Corpuscular HGB Conc 33.5 g/dL (30.0-36.0); Mean Corpuscular Hemoglobin 31.6 pg (28.0-34.0); Mean Corpuscular Volume 94.6 fL (81-99); Mean Platelet Volume 9.3 fL (7.4-10.4); Monocytes # 0.3 10^3/uL (0.2-0.9); Monocytes % 7.3 %; Neutrophils # 2.76 10^3/uL (1.8-7.7); Neutrophils % 58.9 %; Nucleated Red Blood Cells % 0 %; Platelet Count 167 10^3/cmm (130-400); Red Blood Count 2.94 10^6/uL (4.1-5.3); Red Cell Distribution Width 13.3 % (12.1-15.1); White Blood Count 4.7 10^3/uL (4.0-10.0)
[2021-02-14 20:34] LABS: Alanine Aminotransferase 20 U/L (0-33); Albumin Level 3.8 g/dL (3.5-5.2); Alkaline Phosphatase 96 IU/L (35-105); Anion Gap 12.9 (5-19); Aspartate Amino Transferase 34 U/L (0-32); Blood Urea Nitrogen 29 mg/dL (8-23); Calcium 9.5 mg/dL (8.5-10.5); Carbon Dioxide 36 mmol/L (22-29); Chloride 94 mmol/L (98-107); Globulin 2.3 g/dL (1.3-4.6); Glucose 162 mg/dL (65-115); Osmolality Calculated 297 mOsm/kg (285-295); Potassium 3.9 mmol/L (3.5-5.1); Sodium 139 mmol/L (136-145); Total Bilirubin 0.3 mg/dL (0.15-1.2); Total Protein 6.1 g/dL (6.6-8.7)
[2021-02-14 20:46] VITALS: BP 150/73; PULSE 57; RESP 18; O2SAT 95
[2021-02-14 20:53] LABS: Troponin(5th) Baseline 27 ng/L (0-10)
[2021-02-14 21:02] LABS: NT Pro B Type Natriuretic Pept 124 pg/mL (0-125)
[2021-02-14 22:00] VITALS: BP 131/97; PULSE 60; RESP 18; O2SAT 100
[2021-02-14] MEDS: HYDROcodone-acetaminophen 5-325 mg Tablet 1 TAB PO (22:01)
--- NOTE | 2021-02-14 22:21 | PC.NURSE ---
20g Iv inserted removed at this time catheter smooth and intact
[2021-02-14 22:22] VITALS: BP 156/73; PULSE 62; RESP 18; O2SAT 96
== END 2021-02-14 22:25 | disposition home or self-care (01) ==
PROVIDERS: Physician Assistant; Emergency Provider Physician Assistant; PCP Internal Medicine
DX: R53.1 Weakness (principal); D64.9 Anemia, unspecified; R79.89 Other specified abnormal findings of blood chemistry; Z79.82 Long term (current) use of aspirin; Z79.4 Long term (current) use of insulin; I11.0 Hypertensive heart disease with heart failure; I50.9 Heart failure, unspecified; J44.9 Chronic obstructive pulmonary disease, unspecified; I25.10 Atherosclerotic heart disease of native coronary artery without angina pectoris; E78.5 Hyperlipidemia, unspecified; Z87.891 Personal history of nicotine dependence
CPT/HCPCS: 71045; 80053; 81003; 83880; 84484; 85025; 93005; 99284

== ENCOUNTER 2021-03-15 22:53 | Observation (INO) | payer MEDICARE, SELFPAY ==
[2021-03-15 22:54] VITALS: BP 102/59; PULSE 94; RESP 16; TEMP 36.6; O2SAT 95; BMI 36.6
--- NOTE | 2021-03-15 23:04 | XRR_ITS ---
PROCEDURE INFORMATION: Exam: XR Chest Exam date and time: 03/15/2021 11:04 PM Age: 70 years old Clinical indication: Chest pressure; Patient HX: Chest pain. History of afib. ; Additional info: Cough TECHNIQUE: Imaging protocol: XR of the chest. Views: 1 view. COMPARISON: CR XR chest 1V portable [id number] 02/14/2021 4:11 PM FINDINGS: Lungs: No consolidative pulmonary infiltrates are noted. Pleural spaces: Unremarkable. No pleural effusion. No pneumothorax. Heart/Mediastinum: No cardiomegaly. Bones/joints: Degenerative spine changes are noted. XR/XR chest 1V portable [id number] IMPRESSION: 1. No acute cardiopulmonary disease demonstrated. 2. There is no interval change from the prior examination.
--- NOTE | 2021-03-15 23:05 | ED_ITS ---
HPI - Chest Pain General: Chief Complaint: Chest Pain Stated Complaint: FALL/CP Time Seen by Provider: 03/15/21 23:01 History of Present Illness: HPI narrative: This patient is a 70-year-old female who presents to the emergency department from local assisted living due to falls multiple times a day and weakness. Patient describes herself as every time she tried to get up using her walker she became lightheaded and off- balance. Patient states normally she will ambulates with a walker without difficulty. Patient states that she feels okay right now but when she tries to get up she gets profoundly dizzy. halfway reports the patient had to have several lift assist today with EMS but refused to go to the hospital. We will do medical evaluation treat as needed Associated symptoms: Deny abdominal pain, dyspnea, fever(s), nausea, palpitations or vomiting Review of Systems General: Reports: 10 or more systems reviewed and unremarkable except in HPI and below Const: Reports: fatigue; Denies: fever(s), chills or body aches Eyes: Denies: change in vision or blurry vision ENMT: Denies: throat pain, hoarseness or mouth pain Card: Denies: chest pain, palpitations, irregular heart rhythm, edema, swelling of feet/ankles or lightheadedness Resp: Denies: dyspnea, productive cough, non-productive cough, wheezing or pain on inspiration GI: Denies: abdominal pain, nausea or vomiting : Denies: flank pain, difficulty voiding, dysuria, urinary frequency, urinary urgency or urinary hesitancy Musc: Denies: neck pain, back pain, extremity pain, extremity swelling, joint pain, joint swelling, joint redness, joint warmth or limited range of motion Skin/Breast: Denies: rash, pruritus, erythema or skin tenderness Neuro: Reports: frequent falls, dizziness and vertigo; Denies: headache(s), numbness in extremities or weakness in extremities Psych: Denies: anxiety or depression PFSH ED PFSH: Medical History Anxiety and depression CHF exacerbation Chronic knee pain Chronic low back pain COPD (chronic obstructive pulmonary disease) Oxygen dependent, 2 L at baseline Coronary artery disease COVID-14 August 2020 Fibromyalgia High risk medication use Hyperlipidemia Hypertension Hypothyroidism Immunization counseling Inflammatory arthritis Intermittent atrial fibrillation Because the patient history of frequent fall she was thought to be high risk for bleeding complications. So she is taking only the aspirin at this time. SHE HAS EASY BRUISING WELL Left renal mass Liver cirrhosis Low back pain of over 3 months duration Lung nodule Narrow complex tachycardia Osteoarthritis of knees, bilateral Poorly controlled diabetes mellitus Recurrent UTI Seronegative rheumatoid arthritis of both hands Unstable angina Urgency incontinence UTI (urinary tract infection) Surgical History History of cardiac cath History of cholecystectomy History of hysterectomy History of knee replacement History of thyroid surgery Family History Other CAD (coronary artery disease) Cancer Denies family history of Anesthesia complication Bleeding disorder Social History Smoking and tobacco status: former smoker Quit status (tobacco): has quit using tobacco Year quit tobacco: 2005 Second hand smoke exposure: No Alcohol intake: never Adopted: No Caregiver/support person: No Lives independently: No Household members: spouse Marital status: Current occupational status: retired History of recent travel: No Current gender identity: Female Physical Exam Const: COMMON NORMALS: no acute distress, average body habitus, patient oriented x3, no limitations, healthy appearing, alert and well nourished HENMT: COMMON NORMALS: normocephalic, atraumatic, hearing grossly normal bilaterally, external ears normal, EAC's normal, TM's normal bilaterally, Normal external nose present, Normal nasal mucous membranes and turbinates present, moist oral mucous membranes, oropharynx normal, dentition normal and gingiva normal HEAD & SCALP: normocephalic and atraumatic NOSE: Normal external nose present and Normal nasal mucous membranes and turbinates present EXTERNAL EAR: Yes external ears normal EXTERNAL AUDITORY CANAL: EAC's normal TYMPANIC MEMBRANE: TM's normal bilaterally Neck/C-Spine: COMMON NORMALS: full ROM, no lymphadenopathy, supple, no meningeal signs, no JVD, Thyroid normal and No carotid bruits THYROID: Thyroid normal Chest: COMMONS NORMALS: normal inspection of the chest, normal palpation of entire chest wall, normal inspection of the breasts and normal palpation of the breasts Breast/axilla inspection: Yes normal inspection of the breasts BREAST/AXILLA PALPATION: Yes normal palpation of the breasts Resp: COMMON NORMALS: normal respiratory effort, No retractions, No use of accessory muscles, clear to auscultation bilaterally and percussion normal AUSCULTATION: clear to auscultation bilaterally PERCUSSION: percussion normal Cardio: COMMON NORMALS: no JVD, regular rate, regular rhythm, S1 normal heart sound present, S2 normal heart sound present, No gallops present (Cardio), No clicks present (Cardio), No murmurs present (Cardio), No rub (Cardio) and Peripheral pulses 2+ throughout RATE: regular rate RHYTHM: regular rhythm HEART SOUNDS: S1 normal heart sound present and S2 normal heart sound present PERIPHERAL PULSES: Peripheral pulses 2+ throughout GI: COMMON NORMALS: Normal to inspection, nondistended, normoactive bowel sounds present, Soft to palpation, non-tender, No hepatosplenomegaly present, no masses and no bruits PALPATION: Yes Soft to palpation and Yes No hepatosplenomegaly present Back/Pelvis: COMMON NORMALS: thoracic and lumbar spine normal to inspection, no thoracic nor lumbar tenderness, thoraco-lumbar ROM normal and straight leg raise negative bilaterally Extremity: COMMON NORMALS: normal to inspection, full ROM, capillary refill normal, no joint enlargement, no clubbing, cyanosis or edema, no calf tenderness and no pedal edema Neuro: COMMON NORMALS: patient oriented x3, CN's II-XII intact bilaterally, moves all extremities, no focal motor deficits, no sensory deficits noted and deep tendon reflexes 2+ bilaterally SENSORIUM/ORIENTATION: Yes alert MENINGEAL SIGNS: Yes no meningeal signs Course Reevaluation(s): Reevaluation #1: I did discuss at length with patient and family about findings. Falling frequently and orthostasis. They are agreeable to stay in the hospital. Time: 01:44 Consultations: Consultation #1: I did discuss at length with Dr. May. He agrees with admission to the patient to the floor. He will see patient write additional orders. Time: 01:44 Vital Signs: Vital signs: Vital Signs Temperature 97.8 F 03/15/21 22:54 Pulse Rate 84 03/16/21 01:30 Respiratory Rate 16 03/16/21 01:30 Blood Pressure 126/84 03/16/21 01:30 Pulse Oximetry 98 03/16/21 01:30 MDM - Chest Pain MDM Narrative: Medical decision making narrative: This patient is a 70-year-old female who presents to the emergency department from local assisted living due to falls multiple times a day and weakness. Patient describes herself as every time she tried to get up using her walker she became lightheaded and off-balance. Patient states normally she will ambulates with a walker without difficulty. Patient states that she feels okay right now but when she tries to get up she gets profoundly dizzy. halfway reports the patient had to have several lift assist today with EMS but refused to go to the hospital. We will do medical evaluation treat as needed I did discuss at length with patient and family about findings. Falling frequently and orthostasis. They are agreeable to stay in the hospital. I did discuss at length with Dr. May. He agrees with admission to the patient to the floor. He will see patient write additional orders. Lab Data: Labs: Lab Results 03/15/21 03/15/21 03/15/21 Range/Units 23:08 23:08 23:08 WBC 8.8 (4.0-10.0) 10^3/ uL RBC 3.52 L (4.1-5.3) 10^6/u L Hgb 11.6 (11.5-15.3) g/dL Hct 35.5 L (37.0-47.0) % MCV 100.9 H (81-99) fL MCH 33.0 (28.0-34.0) pg MCHC 32.7 (30.0-36.0) g/dL RDW 14.7 (12.1-15.1) % Plt Count 300 (130-400) 10^3/c mm MPV 9.3 (7.4-10.4) fL Neut % (Auto) 71.6 % Lymph % (Auto) 16.6 % Whitley % (Auto) 9.4 % Eos % (Auto) 0.8 % Baso % (Auto) 1.0 % Neut # (Auto) 6.28 (1.8-7.7) 10^3/u L Lymph # (Auto) 1.5 (0.8-4.8) 10^3/u L Whitley # (Auto) 0.8 (0.2-0.9) 10^3/u L Eos # (Auto) 0.1 (0.0-0.8) 10^3/u L Baso # (Auto) 0.1 (0.0-0.1) 10^3/u L Nucleated RBC % (a uto) 0 % Nucleated RBCs # 0.0 /100WBC PT 13.50 (12.1-14.9) SECO NDS INR 1.00 (0.8-1.2) APTT 20.4 L (23.9-36.7) SECO NDS Sodium 142 (136-145) mmol/L Potassium 4.2 (3.5-5.1) mmol/L Chloride 97 L (98-107) mmol/L Carbon Dioxide 30 H (22-29) mmol/L Anion Gap 19.2 H (5-19) BUN 21 (8-23) mg/dL Creatinine 1.3 H (0.5-0.9) mg/dL GFR Calculation Not Reportable Glucose 199 H (65-115) mg/dL Calculated Osmolal ity 303 H (285-295) mOsm/k g Calcium 9.8 (8.5-10.5) mg/dL Total Bilirubin 0.4 (0.15-1.2) mg/dL AST 55 H (0-32) U/L ALT 31 (0-33) U/L Alkaline Phosphata se 102 (35-105) IU/L Troponin T Baselin e (0-10) ng/L Troponin T 120 Min nils (0-10) ng/L Delta Troponin T (0-10) ABS# NT-Pro-B Natriuret Pep 814 H (0-125) pg/mL Total Protein 6.7 (6.6-8.7) g/dL Albumin 4.0 (3.5-5.2) g/dL Globulin 2.7 (1.3-4.6) g/dL 03/15/21 03/16/21 Range/Units 23:08 01:00 WBC (4.0-10.0) 10^3/ uL RBC (4.1-5.3) 10^6/u L Hgb (11.5-15.3) g/dL Hct (37.0-47.0) % MCV (81-99) fL MCH (28.0-34.0) pg MCHC (30.0-36.0) g/dL RDW (12.1-15.1) % Plt Count (130-400) 10^3/c mm MPV (7.4-10.4) fL Neut % (Auto) % Lymph % (Auto) % Whitley % (Auto) % Eos % (Auto) % Baso % (Auto) % Neut # (Auto) (1.8-7.7) 10^3/u L Lymph # (Auto) (0.8-4.8) 10^3/u L Whitley # (Auto) (0.2-0.9) 10^3/u L Eos # (Auto) (0.0-0.8) 10^3/u L Baso # (Auto) (0.0-0.1) 10^3/u L Nucleated RBC % (a uto) % Nucleated RBCs # /100WBC PT (12.1-14.9) SECO NDS INR (0.8-1.2) APTT (23.9-36.7) SECO NDS Sodium (136-145) mmol/L Potassium (3.5-5.1) mmol/L Chloride (98-107) mmol/L Carbon Dioxide (22-29) mmol/L Anion Gap (5-19) BUN (8-23) mg/dL Creatinine (0.5-0.9) mg/dL GFR Calculation Glucose (65-115) mg/dL Calculated Osmolal ity (285-295) mOsm/k g Calcium (8.5-10.5) mg/dL Total Bilirubin (0.15-1.2) mg/dL AST (0-32) U/L ALT (0-33) U/L Alkaline Phosphata se (35-105) IU/L Troponin T Baselin e 27 H (0-10) ng/L Troponin T 120 Min nils 25.61 H (0-10) ng/L Delta Troponin T -1.39 L (0-10) ABS# NT-Pro-B Natriuret Pep (0-125) pg/mL Total Protein (6.6-8.7) g/dL Albumin (3.5-5.2) g/dL Globulin (1.3-4.6) g/dL Imaging Data^: CT Head: Attestation: I personally reviewed and interpreted this imaging study as follows: Radiologist's impression: IMPRESSION: 1. Mild motion artifact slightly limits visualization. 2. No acute intracranial abnormality demonstrated. 3. There is no interval change from the prior examination. EKG Data^: EKG 1: Attestation: I personally reviewed and interpreted this EKG as follows: EKG interpretation date: 03/15/21 EKG interpretation time: 23:02 Prior EKG tracings: not available for review Interpretation: Atrial fibrillation heart rate 96 right bundle branch block with left anterior fascicular block nonspecific ST changes chronic abnormal EKG EKG 2: Attestation: I personally reviewed and interpreted this EKG as follows: EKG interpretation date: 03/16/21 EKG interpretation time: 01:02 Prior EKG tracings: not available for review Interpretation: Atrial flutter/tachycardia heart rate 93 right bundle branch block left anterior fascicular block no change from previous EKG Discharge Plan Discharge Patient Disposition: Placed in Observation Clinical Impression: Falls frequently, Hypertension, Morbid obesity, Orthostatic hypotension, Chronic atrial fibrillation Condition: Stable Prescriptions: No Action ferrous gluconate 324 mg (37.5 mg iron) tablet 324 mg PO .every other day RF: 0 sulfasalazine 500 mg tablet 0.5 g PO BID@,17 Qty: 60 RF: 3 tizanidine 4 mg tablet 4 mg PO TID PRN (Reason: muscle spasticity) 30 Days Qty: 90 RF: 2 hydrocodone-acetaminophen 7.5-325 mg tablet 1 tab PO TID PRN (Reason: pain) 30 Days Qty: 90 RF: 0 hydrocodone-acetaminophen 7.5-325 mg tablet 1 tab PO TID@,, PRN (Reason: pain) 30 Days Qty: 90 RF: 0 tramadol 50 mg tablet 100 mg PO BID PRN (Reason: Pain) 30 Days Qty: 180 RF: 1 Humira Pen 40 mg/0.8 mL pen injector kit 40 mg SUBCUT Q14D Qty: 2 RF: 3 levothyroxine 175 mcg capsule 175 mcg PO DAILY@08 RF: 0 potassium chloride 20 mEq tablet extended release 20 meq PO BID@,17 RF: 0 aripiprazole [Abilify] 5 mg tablet 5 mg PO DAILY@08 Qty: 30 RF: 2 duloxetine [Cymbalta] 30 mg capsule,delayed release(DR/EC) 30 mg PO DAILY@08 Qty: 30 RF: 2 duloxetine [Cymbalta] 60 mg capsule,delayed release(DR/EC) 60 mg PO DAILY@08 Qty: 30 RF: 2 buspirone 10 mg tablet 10 mg PO BID@, Qty: 60 RF: 2 nitroglycerin [Nitrostat] 0.4 mg tablet, sublingual 0.4 mg SUBLINGUAL Q5M PRN (Reason: Chest Pain) Qty: 30 RF: 3 furosemide 40 mg tablet 40 mg PO DAILY Qty: 90 RF: 3 folic acid 1 mg tablet 1 mg PO DAILY@08 Qty: 90 RF: 1 amlodipine 10 mg tablet 10 mg PO DAILY@08 Qty: 90 RF: 3 methotrexate sodium 2.5 mg tablet 7.5 mg PO .Q7days Qty: 15 RF: 3 prednisone 2.5 mg tablet 2.5 mg PO DAILY Qty: 30 RF: 0 atorvastatin [Lipitor] 40 mg Tablet 40 mg PO DAILY@0800 RF: 0 loperamide [Anti-Diarrheal (loperamide)] 2 mg Tablet 2 - 4 mg PO PRN PRN (Reason: Diarrhea) RF: 0 acetaminophen [Arthritis Pain Reliever] 650 mg Tablet Extended Release 650 mg PO PRN PRN (Reason: Pain) RF: 0 docusate sodium [Stool Softener] 100 mg Capsule 200 mg PO BID@ RF: 0 zinc 50 mg Tablet 50 mg PO DAILY@12 RF: 0 pyridoxine (vitamin B6) [Vitamin B-6] 100 mg Tablet 100 mg PO DAILY@08 RF: 0 vitamin E 400 unit Capsule 400 unit PO DAILY@08 RF: 0 loratadine 10 mg Tablet 20 mg PO DAILY@08 RF: 0 magnesium L-lactate [Magtab] 84 mg tablet extended release 84 mg PO BID@ RF: 0 cholecalciferol (vitamin D3) [Vitamin D3] 25 mcg (1,000 unit) Tablet 2,000 unit PO DAILY@08 RF: 0 omega 6-fme-mvp-fish oil [Ultra Crowheart-3] 500-1,000 mg Capsule 2 cap PO DAILY@23 RF: 0 albuterol sulfate 2.5 mg /3 mL (0.083 %) Solution For Nebulization 2.5 mg inhalation TID PRN (Reason: Shortness Of Breath) RF: 0 aspirin 325 mg Tablet 325 mg PO BEDTIME@1999 RF: 0 Hold Instructions: Resume on 10/18/20. Novolin 70/30 U-100 Insulin 100 unit/mL (70-30) suspension See Rx Instructions .ROUTE .COMPLEX RF: 0 hydrocortisone 2.5 % cream See Rx Instructions .ROUTE .COMPLEX RF: 0 ketoconazole 2 % cream See Rx Instructions .ROUTE .COMPLEX RF: 0 hydralazine 25 mg tablet 25 mg PO TID@0800,1200,1999 RF: 0 insulin lispro [Admelog U-100 Insulin lispro] 100 unit/mL Solution See Rx Instructions .ROUTE .COMPLEX RF: 0 metoprolol tartrate 100 mg tablet 100 mg PO Q12H RF: 0 pantoprazole [Protonix] 40 mg tablet,delayed release (DR/EC) 40 mg PO BID@, RF: 0 albuterol sulfate 90 mcg/actuation HFA aerosol inhaler 1 inh inhalation Q6H PRN (Reason: shortness of breath or wheezing) Qty: 18 RF: 0 Vitamin B-12 1 tab PO DAILY@0800 RF: 0 black cohosh 1 tab PO BID@08,1999 RF: 0 digoxin 125 mcg (0.125 mg) tablet 125 mcg PO .every other day RF: 0 Referrals: Ami Perez DO [Primary Care Provider] - Patient Instructions: Opioid Safety Coding Level of Care Code 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
--- NOTE | 2021-03-15 23:05 | ECG_ITS ---
[facility] Test Date: 2021-03-15 Pat Name: Myesha Parker Department: Room: Gender: Female Addictions Therapist: : [id number] Requested By: Mike Robertson Order Number: [id number] Wilbur MD: Victoriano White M.D. Measurements Intervals [place] Rate: 96 P: [place]: QRS: -75 QRSD: 152 T: 44 QT: 396 QTc: 500 Interpretive Statements ATRIAL FIBRILLATION RIGHT BUNDLE BRANCH BLOCK [120+ ms QRS DURATION, UPRIGHT V1, 40+ ms S IN I/aVL/V4/V5/V6] LEFT ANTERIOR FASCICULAR BLOCK [QRS AXIS <= -45, QR IN I, RS IN II] MODERATE VOLTAGE CRITERIA FOR LVH, CONSIDER NORMAL VARIANT [MEETS CRITERIA IN ONE OF: R(aVL), S(V1), R(V5), R(V5/V6)+S(V1)] POSSIBLE SEPTAL MYOCARDIAL INFARCTION [30 ms Q WAVE IN V1/V2], OF INDETERMINATE AGE Compared to ECG 02/14/2021 20:19:18 Sinus bradycardia no longer present First degree AV block no longer present Myocardial infarct finding still present Electronically Signed On 03-16-2021 18:33:43 CDT by Victoriano White M.D. [email or web address]
[2021-03-15 23:17] VITALS: BP 98/62; PULSE 72; RESP 16; O2SAT 97
[2021-03-15 23:19] LABS: Basophils # 0.1 10^3/uL (0.0-0.1); Eosinophils # 0.1 10^3/uL (0.0-0.8); Eosinophils % 0.8 %; Hematocrit 35.5 % (37.0-47.0); Hemoglobin 11.6 g/dL (11.5-15.3); Lymphocytes # 1.5 10^3/uL (0.8-4.8); Lymphocytes % 16.6 %; Mean Corpuscular HGB Conc 32.7 g/dL (30.0-36.0); Mean Corpuscular Volume 100.9 fL (81-99); Mean Platelet Volume 9.3 fL (7.4-10.4); Monocytes # 0.8 10^3/uL (0.2-0.9); Monocytes % 9.4 %; Neutrophils # 6.28 10^3/uL (1.8-7.7); Neutrophils % 71.6 %; Nucleated Red Blood Cells % 0 %; Platelet Count 300 10^3/cmm (130-400); Red Blood Count 3.52 10^6/uL (4.1-5.3); Red Cell Distribution Width 14.7 % (12.1-15.1); White Blood Count 8.8 10^3/uL (4.0-10.0)
[2021-03-15] MEDS: sodium chloride 0.9% 500 ML IV (23:23)
[2021-03-15 23:38] LABS: Troponin(5th) Baseline 27 ng/L (0-10)
[2021-03-15 23:46] LABS: Alanine Aminotransferase 31 U/L (0-33); Alkaline Phosphatase 102 IU/L (35-105); Blood Urea Nitrogen 21 mg/dL (8-23); Calcium 9.8 mg/dL (8.5-10.5); Carbon Dioxide 30 mmol/L (22-29); Chloride 97 mmol/L (98-107); Globulin 2.7 g/dL (1.3-4.6); Glucose 199 mg/dL (65-115); NT Pro B Type Natriuretic Pept 814 pg/mL (0-125); Osmolality Calculated 303 mOsm/kg (285-295); Sodium 142 mmol/L (136-145); Total Bilirubin 0.4 mg/dL (0.15-1.2); Total Protein 6.7 g/dL (6.6-8.7)
[2021-03-15 23:50] LABS: Anion Gap 19.2 (5-19); Potassium 4.2 mmol/L (3.5-5.1)
[2021-03-15 23:51] LABS: Aspartate Amino Transferase 55 U/L (0-32); Partial Thromboplastin Time 20.4 SECONDS (23.9-36.7)
[2021-03-16] VITALS (23 sets, daily range): BP systolic 80–153; BP diastolic 46–89; PULSE 66–126; RESP 16–20; TEMP 36.4–36.7; O2SAT 94–100; BMI 37.1
--- NOTE | 2021-03-16 00:05 | CTR_ITS ---
PROCEDURE INFORMATION: Exam: CT Head Without Contrast Exam date and time: 03/16/2021 12:05 AM Age: 70 years old Clinical indication: Pain; Headache not specified; Patient HX: OSMAN. TECHNIQUE: Imaging protocol: Computed tomography of the head without contrast. Radiation optimization: All CT scans at this facility use at least one of these dose optimization techniques: automated exposure control; mA and/or kV adjustment per patient size (includes targeted exams where dose is matched to clinical indication); or iterative reconstruction. COMPARISON: CT head wo con* [id number] 12/22/2020 4:02 AM RADIATION DOSE METRICS: Total DLP (mGy-cm): 804.85 FINDINGS: Limitations: Mild motion artifact slightly limits visualization. Brain: Mild parenchymal volume loss noted. There is decreased attenuation of the periventricular white matter, consistent with mild chronic microangiopathic white matter disease. No intracranial hemorrhage noted. No parenchymal edema identified. Cerebral ventricles: No ventriculomegaly. Paranasal sinuses: Visualized sinuses are unremarkable. No fluid levels. Mastoid air cells: Unremarkable as visualized. No mastoid effusion. Bones/joints: Unremarkable. No acute fracture. Soft tissues: Unremarkable. CT/CT head wo con* [id number] IMPRESSION: 1. Mild motion artifact slightly limits visualization. 2. No acute intracranial abnormality demonstrated. 3. There is no interval change from the prior examination. Radiation Dose CTDIVOL = (mGy): DLP = 804.85 (mGy-cm)
--- NOTE | 2021-03-16 01:05 | ECG_ITS ---
[facility] Test Date: 2021-03-16 Pat Name: Myesha Parker Department: Room: [facility] Gender: Female Emergency Department Physician: : [id number] Requested By: Mike Robertson Order Number: [id number] Wilbur MD: Victoriano White M.D. Measurements Intervals [place] Rate: 68 P: -26 MD: 189 QRS: -32 QRSD: 146 T: 150 QT: 415 QTc: 443 Interpretive Statements SINUS RHYTHM MARKED LEFT AXIS DEVIATION [QRS AXIS < -30] RIGHT BUNDLE BRANCH BLOCK [120+ ms QRS DURATION, UPRIGHT V1, 40+ ms S IN I/aVL/V4/V5/V6] LEFT VENTRICULAR HYPERTROPHY AND ST-T CHANGE [VOLTAGE CRITERIA PLUS ST/T ABNORMALITY] ANTEROLATERAL MYOCARDIAL INFARCTION [40+ ms Q WAVE IN I/aVL/V3-V6], OF INDETERMINATE AGE Compared to ECG 03/16/2021 01:02:14 Left-axis deviation now present ST (T wave) deviation now present Atrial flutter no longer present Left anterior fascicular block no longer present Myocardial infarct finding still present Electronically Signed On 03-16-2021 18:36:35 CDT by Victoriano White M.D. [email or web address]
[2021-03-16 01:32] LABS: Troponin 5 2HR 25.61 ng/L (0-10)
[2021-03-16 01:33] LABS: Troponin 5 2HR Delta -1.39 ABS# (0-10)
--- NOTE | 2021-03-16 02:39 | P.HP_ITS ---
Providers/Chief Complaint Admitting Physician: Mikayla May Primary Care Provider: Ami Perez DO Chief Complaint: FALL/CP History of Present Illness 70-year-old female with a past medical history significant for anxiety, depression, fibromyalgia, hypertension, dyslipidemia, hypothyroidism, iron deficiency anemia, paroxysmal atrial fibrillation, coronary disease, COVID-19 infection in July 2020, chronic stage II diastolic heart failure , O2 dependent chronic obstructive pulmonary disease on 2 L by nasal cannula , chronic stage 3 kidney disease with baseline creatinine around 1.3, and liver cirrhosis who was brought to the hospital after she was noted to have recurrent falls. patient stated that she had fallen twice at home. Primarily when attempting to stand from a sitting position. Noted feeling dizzy. Additionally complained of substernal chest pain. She described this as a pressure-like sensation. Intermittently in the past 3 days. Nonradiating. Denied respiratory distress. Remained at her baseline o2 flow. Initial vital signs on arrival showed a BP of 116/79 , pulse of 97, respiratory rate of 17 at temperature 97.8?. Oxygen saturation 99% on room air. Due to suspected orthostatic orthostatic vital signs however has showed a laying BP of 124/85, heart rate 97, sitting BP of 102/84, heart rate 99 and standing blood pressure dropped to 80/53 with a heart rate of 103. Patient was markedly symptomatic during this as well. Upon admission to the hospital patient's laboratory workup showed a WBC of 8.8, hemoglobin of 11.6, hematocrit of 35.5 and a platelet count of 300 INR 1.0. Sodium 142, potassium 4.2, chloride 97, bicarb 30, BUN 21 and creatinine 1.3 . Glucose of 199 AST of 55, ALT of 31 alkaline phosphatase of 102 proBNP of 814. Head CT did not show any acute intracranial abnormality.She was given 500 cc bolus of on asenapine to the hospital. Additionally to note patient did deny any recent fever, chills, nausea vomiting. Also denied abdominal pain, diarrhea constipation. Review of Systems General: Reports: 10 or more systems reviewed and unremarkable except in HPI and below Medications/Allergies Home Medications Medication Instructions Recorded Confirmed Last Taken Type levothyroxine 175 mcg capsule 175 mcg PO DAILY@08 cap 09/09/19 03/11/21 03/10/17 History potassium chloride 20 mEq 20 meq PO BID@,17 09/09/19 03/11/21 11/15/20 History tablet,extended release acetaminophen [Arthritis Pain 650 mg PO PRN PRN 10/12/19 03/11/21 11/02/20 History Reliever] atorvastatin [Lipitor] 40 mg PO DAILY@0800 10/12/19 03/11/21 11/15/20 History cholecalciferol (vitamin D3) 2,000 unit PO DAILY@08 10/12/19 03/11/21 11/15/20 History [Vitamin D3] docusate sodium [Stool Softener] 200 mg PO BID@,10/12/19 03/11/21 11/15/20 History loperamide [Anti-Diarrheal 2 - 4 mg PO PRN PRN 10/12/19 03/11/21 03/20/20 History (loperamide)] loratadine 20 mg PO DAILY@10/12/19 03/11/21 11/15/20 History magnesium L-lactate [Magtab] 84 mg PO BID@10/12/19 03/11/21 11/15/20 History omega 3-rim-uqa-fish oil [Ultra 2 cap PO DAILY@10/12/19 03/11/21 11/14/20 History [place]-3] pyridoxine (vitamin B6) [Vitamin 100 mg PO DAILY@10/12/19 03/11/21 11/15/20 History B-6] vitamin E 400 unit PO DAILY@08 10/12/19 03/11/21 11/15/20 History zinc 50 mg PO DAILY@10/12/19 03/11/21 11/15/20 History insulin lispro [Admelog U-100 See Rx Instructions .ROUTE .COMPLEX 12/31/19 03/11/21 11/15/20 History Insulin lispro] metoprolol tartrate 100 mg PO Q12H 08/07/20 03/11/21 11/15/20 History pantoprazole [Protonix] 40 mg PO BID@08/07/20 03/11/21 11/15/20 History albuterol sulfate 1 inh INHALATION Q6H PRN #18 g 08/12/20 03/11/21 Unknown Rx sulfasalazine 500 mg tablet 0.5 g PO BID@08,17 #60 tab 09/28/20 03/11/21 11/15/20 Rx Novolin 70/30 U-100 Insulin See Rx Instructions .ROUTE .COMPLEX 10/08/20 03/11/21 11/15/20 History albuterol sulfate 2.5 mg INHALATION TID PRN 10/08/20 03/11/21 Unknown History aspirin 325 mg PO BEDTIME@199910/08/20 03/11/21 11/14/20 History hydrocortisone See Rx Instructions .ROUTE .COMPLEX 10/08/20 03/11/21 11/01/20 History ketoconazole See Rx Instructions .ROUTE .COMPLEX 10/08/20 03/11/21 11/01/20 History Vitamin B-12 1 tab PO DAILY@0800 11/02/20 03/11/21 11/15/20 History black cohosh 1 tab PO BID@0800,199911/02/20 03/11/21 11/15/20 History digoxin 125 mcg (0.125 mg) tablet 125 mcg PO .every other day tab 11/10/20 03/11/21 11/15/20 History hydralazine 25 mg PO TID@0800,1200,199911/15/20 03/11/21 Unknown History folic acid 1 mg tablet 1 mg PO DAILY@08 #90 tab 12/01/20 03/11/21 Unknown Rx amlodipine 10 mg tablet 10 mg PO DAILY@08 #90 tab 12/10/20 03/11/21 Unknown Rx aripiprazole 5 mg tablet 5 mg PO DAILY@08 #30 tab 01/11/21 03/11/21 Unknown Rx buspirone 10 mg tablet 10 mg PO BID@08,17 #60 tab 01/11/21 03/11/21 Unknown Rx duloxetine 30 mg capsule,delayed 30 mg PO DAILY@08 #30 cap 01/11/21 03/11/21 Unknown Rx release duloxetine 60 mg capsule,delayed 60 mg PO DAILY@08 #30 cap 01/11/21 03/11/21 Unknown Rx release hydrocodone 7.5 mg-acetaminophen 1 tab PO TID PRN 30 Days #90 tab 01/14/21 03/11/21 Unknown Rx 325 mg tablet hydrocodone 7.5 mg-acetaminophen 1 tab PO TID@08,17,23 PRN 30 Days 01/14/21 03/11/21 Unknown Rx 325 mg tablet #90 tab tizanidine 4 mg tablet 4 mg PO TID PRN 30 Days #90 tab 01/14/21 03/11/21 Unknown Rx tramadol 50 mg tablet 100 mg PO BID PRN 30 Days #180 tab 01/14/21 03/11/21 Unknown Rx adalimumab 40 mg/0.8 mL 40 mg SUBCUT Q14D #2 ea 01/25/21 03/11/21 Unknown Rx subcutaneous pen kit methotrexate sodium 2.5 mg tablet 7.5 mg PO .Q7days #15 tab 01/25/21 03/11/21 Unknown Rx furosemide 40 mg tablet 40 mg PO DAILY #90 tab 02/08/21 03/11/21 Unknown Rx nitroglycerin 0.4 mg sublingual 0.4 mg SUBLINGUAL Q5M PRN #30 tab 02/08/21 03/11/21 Unknown Rx tablet prednisone 2.5 mg tablet 2.5 mg PO DAILY #30 tab 02/16/21 03/11/21 Unknown Rx ferrous gluconate 324 mg (37.5 mg 324 mg PO .every other day tab 03/11/21 03/11/21 Unknown History iron) tablet Allergies Allergy/AdvReac Type Severity Reaction Status Date / Time adhesive tape Allergy rash Verified 03/15/21 23:02 cinnamon Allergy sinus Verified 03/15/21 23:02 codeine Allergy unknown Verified 03/15/21 23:02 cedar Allergy sinus Uncoded 03/15/21 23:02 pine Allergy sinus Uncoded 03/15/21 23:02 pork food Allergy ADR-Nausea Uncoded 03/15/21 23:02 PFSH Acute PFSH: Medical History Anxiety and depression CHF exacerbation Chronic knee pain Chronic low back pain COPD (chronic obstructive pulmonary disease) Oxygen dependent, 2 L at baseline Coronary artery disease COVID-14 August 2020 Fibromyalgia High risk medication use Hyperlipidemia Hypertension Hypothyroidism Immunization counseling Inflammatory arthritis Intermittent atrial fibrillation Because the patient history of frequent fall she was thought to be high risk for bleeding complications. So she is taking only the aspirin at this time. SHE HAS EASY BRUISING WELL Left renal mass Liver cirrhosis Low back pain of over 3 months duration Lung nodule Narrow complex tachycardia Osteoarthritis of knees, bilateral Poorly controlled diabetes mellitus Recurrent UTI Seronegative rheumatoid arthritis of both hands Unstable angina Urgency incontinence UTI (urinary tract infection) Surgical History History of cardiac cath History of cholecystectomy History of hysterectomy History of knee replacement History of thyroid surgery Family History Other CAD (coronary artery disease) Cancer Denies family history of Anesthesia complication Bleeding disorder Social History Smoking and tobacco status: former smoker Quit status (tobacco): has quit using tobacco Year quit tobacco: 2005 Second hand smoke exposure: No Alcohol intake: never Adopted: No Caregiver/support person: No Lives independently: No Household members: spouse Marital status: Current occupational status: retired History of recent travel: No Current gender identity: Female Vitals/I&O/Wt Last Vital Signs Temp 97.8 F 03/16/21 02:32 Pulse 97 03/16/21 02:32 Resp 17 03/16/21 02:32 BP 116/79 03/16/21 02:32 Pulse Ox 99 03/16/21 02:32 03/15/21 03/15/21 03/16/21 14:59 22:59 06:59 Intake Total 500 / 500 Balance 500 / 500 Weight last 48 hrs Weight 99.79 kg Physical Exam Narrative: EXAM NARRATIVE: General-alert awake and oriented x3 HEENT -grossly unremarkable CVS -sinus tachycardia Chest- decreased at bases Abdomen-soft nontender nondistended Extremities- trace bilateral edema Data : 03/15/21 23:08 03/15/21 23:08 A&P Assessment and plan (1) Chest pain: ECHO in 10/17 did not show any regional wall motion, preserved EF with grade 2 diastolic dysfunction Last Nuclear stress test in 2019 - TID> 1, no reversible ischemia Aspirin 81 mg PO daily Statin NPO Nuclear stress test in am ECHO Troponin trend not consistent with ACS Cardiac tele Consider cardio consult Status: Acute (2) Orthostatic hypotension: Laying : 124/84, HR 97, Sit 102/84 HR 99, Standing 80/53, HR 103 Symptomatic during Med review Fall precautions May need midodrine PT consult Status: Acute (3) Recurrent falls: Management as above. Status: Acute (4) Chronic atrial fibrillation: Verify home meds - Dig noted however patient unsure Only on asa daily for cva prevention Status: Acute (5) Chronic obstructive lung disease: Bronchodilatory tx as needed o2 as needed Status: Acute (6) Heart failure with preserved ejection fraction: Repeat ECHO ordered Chronic stage 2 diastolic dysfunction Daily weight Cautious IVF Status: Acute Qualifiers: Heart failure chronicity: acute on chronic Qualified Code(s): I50.33 - Acute on chronic diastolic (congestive) heart failure (7) Hypertension: Verify home meds in am Status: Acute (8) Hypothyroidism: Verify home meds in am Status: Acute Qualifiers: Hypothyroidism type: acquired Qualified Code(s): E03.9 - Hyp othyroidism, unspecified (9) Anxiety and depression: Verify home meds in am Status: Acute (10) Morbid obesity: Status: Chronic (11) COPD (chronic obstructive pulmonary disease): Duoneb as needed Status: Chronic Qualifiers: COPD type: unspecified COPD Qualified Code(s): J44.9 - Chronic obstructive pulmonary disease, unspecified Attestations Medical Necessity Statement*: will require less than 2 midnight stay in hospital for evaluation treatment of orthostatic hypotension and chest pain Time Spent in Patient Care: Greater than 35 minutes (>than 50% of time spent in counselling and/or direct pt care on unit) . Coding Level of Care Code Acute Atm Technician for Chg Fwd Diagnoses Chest pain R07.9 Orthostatic hypotension I95.1 Recurrent falls R29.6 Chronic atrial fibrillation I48.20 Chronic obstructive lung disease J44.9 Heart failure with preserved ejection fraction I50.33 Heart failure chronicity: acute on chronic Hypertension I10 Hypothyroidism E03.9 Hypothyroidism type: acquired Anxiety and depression F41.9; F32.9 Morbid obesity E66.01 COPD (chronic obstructive pulmonary disease) J44.9 COPD type: unspecified COPD
--- NOTE | 2021-03-16 04:01 | USCV_ITS ---
Myesha Parker Age: 70 Gender: F : 1950 Exam Date: 03/16/2021 06:59 Ordering Phys: Mikayla May MD Technologist: Sera Brink Exam Location: [facility] [place] Indication: CHEST PAIN BP: 140 / 80 HR: 67 Rhythm: Sinus Technical Quality: Poor because of body habitus MEASUREMENTS (Male / Female) Normal Values 2D ECHO LV Diastolic Diameter PLAX 4.3 cm 4.2 - 5.9 / 3.9 - 5.3 cm LV Systolic Diameter PLAX 2.8 cm IVS Diastolic Thickness 1.4 cm 0.6 - 1.0 / 0.6 - 0.9 cm IVS Systolic Thickness 2.5 cm LVPW Diastolic Thickness 1.4 cm 0.6 - 1.0 / 0.6 - 0.9 cm LVPW Systolic Thickness 2.4 cm LVOT Diameter 2.0 cm LV Ejection Fraction 2D Teich 65.4 % LV Ejection Fraction MOD 2C 57.4 % LV Ejection Fraction 2C AL 58.6 % LA Diameter 2.8 cm LA Width 3.5 cm LA Height 4.0 cm RA Width 2.6 cm RA Height 4.4 cm Aorta at Sinotubular Diameter 2.5 cm DOPPLER AV Peak Velocity 139.0 cm/s LVOT Peak Velocity 96.0 cm/s AV Area Cont Eq vti 2.6 cm squared AV Area Cont Eq pk 2.2 cm squared MV Peak Velocity 132.0 cm/s MV Area PHT 3.0 cm squared Mitral E to A Ratio 0.8 MV E' Velocity 50.0 cm/s Mitral E to MV E' Ratio 22.6 Mitral E to LV E' Lateral Ratio 32.3 Mitral E to LV E' Septal Ratio 17.6 TR Peak Velocity 160.0 cm/s TR Peak Gradient 10.2 mmHg Right Atrial Pressure 3.0 mmHg Pulmonary Artery Systolic Pressu 13.2 mmHg PV Peak Velocity 113.0 cm/s RV Acceleration Time 0.0 s RV Ejection Time 0.3 s RV AcT/ET 0.2 FINDINGS Left Ventricle Normal LV size ejection fraction of 57%. Mild to moderate concentric left ventricular hypertrophy.no regional wall motion abnormalities. Grade I/IV diastolic dysfunction (abnormal relaxation filling pattern), normal to mildly elevated filling pressures. Right Ventricle Possibly of normal size. Could not be well visualized Right Atrium Possibly of normal size. Could not be well visualized Left Atrium The left atrium is normal in size. Mitral Valve Thickened mitral valve. Moderate mitral annular calcification. Aortic Valve Thickened aortic valve. Trace to mild aortic valve regurgitation. Tricuspid Valve Trace tricuspid valve regurgitation. Pulmonic Valve Pulmonic valve not well visualized. Pericardium Normal pericardium without effusion. Aorta Normal ascending aorta dimension. CONCLUSIONS Normal LV size ejection fraction of 57%. Mild to moderate concentric left ventricular hypertrophy.no regional wall motion abnormalities. Grade I/IV diastolic dysfunction (abnormal relaxation filling pattern), normal to mildly elevated filling pressures. Thickened aortic valve. Trace to mild aortic valve regurgitation. Thickened mitral valve. Moderate mitral annular calcification. Trace of tricuspid valve regurgitation. Estimated pulmonary artery peak systolic pressure of 13 mmHg- could be an underestimation, because of the poor Doppler signals. Comparison with the previous study is difficult because of the difference in the technical quality. There may not be a significant change Dr Keisha Coronel MD [facility] (Electronically Signed) Final Date: 17 March 2021 06:29 S
[2021-03-16 04:18] LABS: Add Urine Culture? No; Add Urine Microscopic? YES; Bacteria Urine TRACE /hpf; Bilirubin Urine 1+ (Negative); Blood Urine Neg (Negative); Glucose Urine UA Norm (Normal); Ketones Urine Negative (Negative); Leukocyte Esterase Urine Negative (Negative); Mucus Urine 1+ /hpf; Nitrate Urine Negative (Negative); Protein Urine 1+ (Negative); RBC Urine 0-4 /hpf (0-2); Renal Epithelial Cells Urine 5 /hpf; Urine Appearance Clear (CLEAR); Urine Color Amber (Yellow); Urobilinogen Urine Norm (Negative); WBC Urine 0-4 /hpf (0-5); pH Urine 5 (5-7)
--- NOTE | 2021-03-16 04:47 | ECG_ITS ---
[facility] Test Date: 2021-03-16 Pat Name: Myesha Parker Department: Room: 106 Gender: Female Hand Tube Bender: : 1950 Requested By: Mikayla May Order Number: [id number] Wilbur MD: Victoriano White M.D. Interpretive Statements NAME OF STUDY: LEXISCAN SESTAMIBI STRESS TEST INDICATION: [Chest Pain, ] Procedure: At the baseline, the blood pressure was 150/61mmHg with a heart rate of 70 bpm. The electrocardiogram showed Atrial flutter, right bundle branch block with normal ST and T's. The Lexiscan was infused over a period of 20 seconds. A total of 0.4 mg of Lexiscan was infused. The stress phase was continued for a total of 5 minutes. Heart rate was at the end of stress phase was 75 bpm and a blood pressure of 162/62 mmHg. The EKG at the peak infusion revealed since atrial flutter with no significant ST-T wave changes. Sestamibi was injected 20 seconds after the Lexiscan infusion. Blood pressure at the end of recovery phase was 153/60 mmHg with a heart rate of 75 bpm. Conclusion: 1. Normal EKG response to Lexiscan infusion 2. No Lexiscan induced chest pain or cardiac arrhythmia. 3. Normal blood pressure and heart rate response. 4. Sestamibi/sestamibi perfusion scan pending; see separate report. Electronically Signed On 03-23-2021 13:40:06 CDT by Victoriano White M.D. [id number]
--- NOTE | 2021-03-16 04:47 | NMCV_ITS ---
NM artemio perf SPECT r/s* [id number] Myesha Parker Age: 70 Gender: F : 1950 Exam Date: 03/16/2021 07:06 Ordering Phys: Mikayla May MD Technologist: RAINER Huizar Exam Location: [facility] Indications: FALL; CHEST PAIN STRESS TEST [facility] IMAGE PROTOCOL Rest/Stress 1 Lexiscan Day Radiopharmaceutical Dose (mCi) Administration Site Administered by Rest: Tc-99m 11.0 IV RAINER Thompson Sestamibi Stress:Tc-99m 32.8 IV RAINER Huizar Sestamigonzález Rest: 16-Mar-2021 60 Discovery 630 Stress: 16-Mar-2021 30 Discovery 630 0.4mg Lexiscan. Supine position only as patient was unable to lay prone. SPECT RESULTS Technical Quality: Good Raw Data Analysis: Breast attenuation Image Corrections: No attenuation or motion correction applied Summed Stress Score: 0 Summed Rest Score: 0 Summed Difference Score: 0 PERFUSION FINDINGS There is homogenous radiotracer uptake throughout the myocardium. No evidence of ischemia seen. FUNCTIONAL RESULTS (calculated via Gated SPECT) Stress Image LV EF (%): 73 Stress EDV (mL):89 TID: 0.94 Stress ESV (mL):24 FUNCTIONAL FINDINGS: LV systolic function is normal IMPRESSIONS 1. Normal myocardial perfusion imaging. No evidence of ischemia seen. 2. LV systolic function is normal Victoriano White MD (Electronically Signed) Final Date: 16 March 2021 11:07 S
--- NOTE | 2021-03-16 05:05 | ECG_ITS ---
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 Measurements Intervals [place] Rate: 93 P: ID: QRS: -80 QRSD: 155 T: 47 QT: 396 QTc: 494 Interpretive Statements ATRIAL FLUTTER RIGHT BUNDLE BRANCH BLOCK [120+ ms QRS DURATION, UPRIGHT V1, 40+ ms S IN I/aVL/V4/V5/V6] LEFT ANTERIOR FASCICULAR BLOCK [QRS AXIS <= -45, QR IN I, RS IN II] MODERATE VOLTAGE CRITERIA FOR LVH, CONSIDER NORMAL VARIANT [MEETS CRITERIA IN ONE OF: R(aVL), S(V1), R(V5), R(V5/V6)+S(V1)] POSSIBLE SEPTAL MYOCARDIAL INFARCTION [30 ms Q WAVE IN V1/V2], OF INDETERMINATE AGE Compared to ECG 03/15/2021 23:02:30 Atrial fibrillation no longer present Myocardial infarct finding still present Electronically Signed On 03-16-2021 18:36:46 CDT by Victoriano White M.D. [id number]
[2021-03-16 05:09] LABS: Troponin 5 6HR 22.99 ng/L (0-10)
[2021-03-16 05:10] LABS: Troponin 5 6HR Delta -4.01 ng/L (0-12)
[2021-03-16] MEDS: sodium chloride 0.9% 1,000 ML 50 ML IV (05:13)
[2021-03-16] MEDS: heparin 5,000 unit/mL INJ 1 mL 5000 UNIT SUBCUT (05:13)
[2021-03-16 06:47] LABS: Glucose Point of Care 122 mg/dL (70-110)
[2021-03-16] MEDS: regadenoson 0.4 Mg/5 ml Syringe IVP (08:22)
--- NOTE | 2021-03-16 09:57 | PC.CHAP ---
Pastoral Care Encounter/Spiritual Assessment Type of Contact [] Declined b2b sales consultant visit [] Patient/Family/Request visit [] Outpatient visit [] Follow-up visit [] Physician referral [] Code/Alert [x] Routine visit [] Staff referral [] Actively dying [] Patient sleeping [] Family support [] [x] Out of room [] Palliative care [] [] Receiving care in room [] Pre-surgical visit [] Trauma [] Long length of stay [] ICU visit [] Other: Relational/Emotional Strength [] Patient feels connected with others/family/visitors/staff [] Distress [] Loneliness/isolation [] Abandonment Spirituality of Patient [] Person of Joelle [] Attends Rastafari of their Joelle [] Believes in Prayer [] Reads Bible or Confucianist materials [] There are Spiritual issues to be addressed Warehouse Representative Interventions [x] Prayer [] Active listening [] Non-anxious presence [] Spiritual/emotional support [] Crisis/trauma care [] Spiritual counseling [] Bereavement support [] Provided bereavement packet [] Provided Bible/devotional materials [] Provided toy/stuffed animal, coloring book to patient or family member [] Provided Communion [] Anointing/[place] [] Salvation [x] Completed spiritual assessment [] Other: Impact on Illness or Injury [] Angry [] Fearful [] Anxious [] Often cries [] Exhaustion [] Unable to work [] Unable to attend adventist [] Unable to walk/stand [] Unable to read [] Unable to drive [] Unable to eat/drink [] Unable to sleep [] Unable to be with family [] Patient intubated [] Other: Summary Time spent with patient
[2021-03-16] MEDS: pantoprazole DR 40 mg Tablet PO (10:12)
[2021-03-16] MEDS: aspirin 81 mg Chew Tablet PO (10:12)
--- NOTE | 2021-03-16 11:24 | PC.PHAR ---
PTS VERIFIED MEDICATIONS-SEE NOTES IN PHARMACY COMMENTS ON RXS ENTERED
[2021-03-16 11:53] LABS: Glucose Point of Care 168 mg/dL (70-110)
--- NOTE | 2021-03-16 12:08 | PM.DCS ---
Discharge Providers Date of Admission: 03/16/21 01:47 Date of Discharge: March 16, 2021 Attending Provider at Admission: Mikayla May Attending Provider at Discharge: Tim Robert MD Primary Care Provider: Ami Perez DO Diagnoses at Discharge Discharge Diagnosis (1) Chest pain: Status: Acute (2) Orthostatic hypotension: Status: Acute (3) Recurrent falls: Status: Acute (4) Chronic atrial fibrillation: Status: Acute (5) Chronic obstructive lung disease: Status: Acute (6) Heart failure with preserved ejection fraction: Status: Acute Qualifiers: Heart failure chronicity: acute on chronic Qualified Code(s): I50.33 - Acute on chronic diastolic (congestive) heart failure (7) Hypertension: Status: Acute (8) Hypothyroidism: Status: Acute Qualifiers: Hypothyroidism type: acquired Qualified Code(s): E03.9 - Hypothyroidism, unspecified (9) Anxiety and depression: Status: Acute (10) Morbid obesity: Status: Chronic Permanent problem details: She has limited activity tolerance and exertional dyspnea, which affects her ability to exercise and participate in physical activities. (11) COPD (chronic obstructive pulmonary disease): Status: Chronic Permanent problem details: Oxygen dependent, 2 L at baseline Qualifiers: COPD type: unspecified COPD Qualified Code(s): J44.9 - Chronic obstructive pulmonary disease, unspecified Reason for Visit Reason for Visit: FALL/CP Hospital Course Hospital Course HPI 70-year-old female with a past medical history significant for anxiety, depression, fibromyalgia, hypertension, dyslipidemia, hypothyroidism, iron deficiency anemia, paroxysmal atrial fibrillation, coronary disease, COVID-19 infection in July 2020, chronic stage II diastolic heart failure , O2 dependent chronic obstructive pulmonary disease on 2 L by nasal cannula , chronic stage 3 kidney disease with baseline creatinine around 1.3, and liver cirrhosis who was brought to the hospital after she was noted to have recurrent falls. patient stated that she had fallen twice at home. Primarily when attempting to stand from a sitting position. Noted feeling dizzy. Additionally complained of substernal chest pain. She described this as a pressure-like sensation. Intermittently in the past 3 days. Nonradiating. Denied respiratory distress. Remained at her baseline o2 flow. Initial vital signs on arrival showed a BP of 116/79 , pulse of 97, respiratory rate of 17 at temperature 97.8?. Oxygen saturation 99% on room air. Due to suspected orthostatic orthostatic vital signs however has showed a laying BP of 124/85, heart rate 97, sitting BP of 102/84, heart rate 99 and standing blood pressure dropped to 80/53 with a heart rate of 103. Patient was markedly symptomatic during this as well. Upon admission to the hospital patient's laboratory workup showed a WBC of 8.8, hemoglobin of 11.6, hematocrit of 35.5 and a platelet count of 300 INR 1.0. Sodium 142, potassium 4.2, chloride 97, bicarb 30, BUN 21 and creatinine 1.3 . Glucose of 199 AST of 55, ALT of 31 alkaline phosphatase of 102 proBNP of 814. Head CT did not show any acute intracranial abnormality.She was given 500 cc bolus of on asenapine to the hospital. Additionally to note patient did deny any recent fever, chills, nausea vomiting. Also denied abdominal pain, diarrhea constipation. Hospital course Patient underwent nuclear stress test which was unremarkable for reversible ischemia, hemodynamically stayed stable, her multivitamins were discontinued, she needs readjustment of her of her medications to avoid polypharmacy, patient chest pain is reproducible, likely musculoskeletal in etiology, she will be discharged today without any addition of any other medication. Physical Exam Narrative: EXAM NARRATIVE: General-alert awake and oriented x3 HEENT -grossly unremarkable CVS -sinus tachycardia Chest- decreased at bases Abdomen-soft nontender nondistended Extremities- trace bilateral edema Discharge Data Data Completed and Pending: Completed Studies During Hospitalization Category Date Time Status CT head wo con* [id number] Stat Cat Scan 03/16/21 00:05 Completed Sestamibi Stress Test Request Pelon ne Exams 03/16/21 04:47 Draft XR chest 1V teetee ble [id number] Stat Exams 03/15/21 23:04 Completed NM artemio perf SPECT r/s* [id number] Routin e Nuc Med 03/16/21 04:47 Completed Pending at discharge Category Date Time Status Basic Metabolic P estevan AM LABS Lab 03/17/21 04:00 Ordered Basic Metabolic P estevan AM LABS Lab 03/18/21 04:00 Ordered Basic Metabolic P estevan AM LABS Lab 03/19/21 04:00 Ordered Complete Blood Co unt w/Auto AM LABS Lab 03/17/21 04:00 Ordered Complete Blood Co unt w/Auto AM LABS Lab 03/18/21 04:00 Ordered Complete Blood Co unt w/Auto AM LABS Lab 03/19/21 04:00 Ordered Hemoglobin A1C AM LABS Lab 03/17/21 04:00 Ordered Lipid Panel AM LA BS Lab 03/17/21 04:00 Ordered Thyroid Stimulati ng Hormone AM LABS Lab 03/17/21 04:00 Ordered CV. echo complete * [id number] Routine Ultrasound 03/16/21 04:01 Taken Labs from last 24 hours 03/16/21 03/16/21 03/16/21 11:18 06:39 04:43 WBC RBC Hgb Hct MCV MCH MCHC RDW Plt Count MPV Neut % (Auto) Lymph % (Auto) [place] % (Auto) Eos % (Auto) Baso % (Auto) Neut # (Auto) Lymph # (Auto) [place] # (Auto) Eos # (Auto) Baso # (Auto) Nucleated RBC % (a uto) Nucleated RBCs # PT INR APTT Sodium Potassium Chloride Carbon Dioxide Anion Gap BUN Creatinine GFR Calculation Glucose POC Glucose 168 H 122 H Calculated Osmolal ity Calcium Total Bilirubin AST ALT Alkaline Phosphata se Troponin T Baselin e Troponin T [address] [place] Troponin T Troponin T Hi Sens 6Hr 22.99 H Troponin T Hi Sens 6Hr Delta -4.01 L NT-Pro-B Natriuret Pep Total Protein Albumin Globulin Urine Color Urine Appearance Urine pH Ur Specific Gravit y Urine Protein Urine Glucose (UA) Urine Ketones Urine Blood Urine Nitrate Urine Bilirubin Urine Urobilinogen Ur Leukocyte Dorota ase Urine RBC Urine WBC Ur Squamous Epith Cells Ur Renal Epithelia l Cell Amorphous Sediment Urine Bacteria Hyaline Casts Urine Mucus 03/16/21 03/16/21 03/15/21 03:55 01:00 23:08 WBC RBC Hgb Hct MCV MCH MCHC RDW Plt Count MPV Neut % (Auto) Lymph % (Auto) [place] % (Auto) Eos % (Auto) Baso % (Auto) Neut # (Auto) Lymph # (Auto) [place] # (Auto) Eos # (Auto) Baso # (Auto) Nucleated RBC % (a uto) Nucleated RBCs # PT INR APTT Sodium Potassium Chloride Carbon Dioxide Anion Gap BUN Creatinine GFR Calculation Glucose POC Glucose Calculated Osmolal ity Calcium Total Bilirubin AST ALT Alkaline Phosphata se Troponin T Baselin e 27 H Troponin T [address] [place] 25.61 H Delta Troponin T -1.39 L Troponin T Hi Sens 6Hr Troponin T Hi Sens 6Hr [place] NT-Pro-B Natriuret Pep Total Protein Albumin Globulin Urine Color Jenny Urine Appearance Clear Urine pH 5 Ur Specific Gravit y 1.020 Urine Protein 1+ H Urine Glucose (UA) Norm Urine Ketones Negative Urine Blood Neg Urine Nitrate Negative Urine Bilirubin 1+ H Urine Urobilinogen Norm Ur Leukocyte Dorota ase Negative Urine RBC 0-4 H Urine WBC 0-4 H Ur Squamous Epith Cells 10-15 H Ur Renal Epithelia l Cell 5 Amorphous Sediment Not Reportable Urine Bacteria Trace Hyaline Casts 5-10 H Urine Mucus 1+ 03/15/21 03/15/21 03/15/21 23:08 23:08 23:08 WBC 8.8 RBC 3.52 L Hgb 11.6 Hct 35.5 L MCV 100.9 H MCH 33.0 MCHC 32.7 RDW 14.7 Plt Count 300 MPV 9.3 Neut % (Auto) 71.6 Lymph % (Auto) 16.6 [place] % (Auto) 9.4 Eos % (Auto) 0.8 Baso % (Auto) 1.0 Neut # (Auto) 6.28 Lymph # (Auto) 1.5 [place] # (Auto) 0.8 Eos # (Auto) 0.1 Baso # (Auto) 0.1 Nucleated RBC % (a uto) 0 Nucleated RBCs # 0.0 PT 13.50 INR 1.00 APTT 20.4 L Sodium 142 Potassium 4.2 Chloride 97 L Carbon Dioxide 30 H Anion Gap 19.2 H BUN 21 Creatinine 1.3 H GFR Calculation Not Reportable Glucose 199 H POC Glucose Calculated Osmolal ity 303 H Calcium 9.8 Total Bilirubin 0.4 AST 55 H ALT 31 Alkaline Phosphata se 102 Troponin T Baselin e Troponin T [address] [place] Troponin T Troponin T Hi Sens 6Hr Troponin T Hi Sens 6Hr [place] NT-Pro-B Natriuret Pep 814 H Total Protein 6.7 Albumin 4.0 Globulin 2.7 Urine Color Urine Appearance Urine pH Ur Specific Gravit y Urine Protein Urine Glucose (UA) Urine Ketones Urine Blood Urine Nitrate Urine Bilirubin Urine Urobilinogen Ur Leukocyte Dorota ase Urine RBC Urine WBC Ur Squamous Epith Cells Ur Renal Epithelia l Cell Amorphous Sediment Urine Bacteria Hyaline Casts Urine Mucus Vitals: Last Vital Signs Temp 98.1 F 03/16/21 11:16 Pulse 69 03/16/21 11:16 Resp 18 03/16/21 11:16 BP 125/46 03/16/21 11:16 Pulse Ox 99 03/16/21 07:26 Discharge Plan Discharge Patient Disposition: Home Condition: Stable Prescriptions: Continued tizanidine 4 mg tablet 4 mg PO TID PRN (Reason: muscle spasticity) 30 Days Qty: 90 RF: 2 hydrocodone-acetaminophen 7.5-325 mg tablet 1 tab PO TID@08,17,23 PRN (Reason: pain) 30 Days Qty: 90 RF: 0 Humira Pen 40 mg/0.8 mL pen injector kit 40 mg SUBCUT Q14D Qty: 2 RF: 3 potassium chloride 20 mEq tablet extended release 20 meq PO BID@08,17 RF: 0 aripiprazole [Abilify] 5 mg tablet 5 mg PO DAILY@08 Qty: 30 RF: 2 duloxetine [Cymbalta] 30 mg capsule,delayed release(DR/EC) 30 mg PO DAILY@08 Qty: 30 RF: 2 nitroglycerin [Nitrostat] 0.4 mg tablet, sublingual 0.4 mg SUBLINGUAL Q5M PRN (Reason: Chest Pain) Qty: 30 RF: 3 furosemide 40 mg tablet 40 mg PO DAILY Qty: 90 RF: 3 folic acid 1 mg tablet 1 mg PO DAILY@08 Qty: 90 RF: 1 amlodipine 10 mg tablet 10 mg PO DAILY@08 Qty: 90 RF: 3 methotrexate sodium 2.5 mg tablet 7.5 mg PO .Q7days Qty: 15 RF: 3 prednisone 2.5 mg tablet 2.5 mg PO DAILY Qty: 30 RF: 0 atorvastatin [Lipitor] 40 mg Tablet 40 mg PO BEDTIME RF: 0 acetaminophen [Arthritis Pain Reliever] 650 mg Tablet Extended Release 650 mg PO PRN RF: 0 pyridoxine (vitamin B6) [Vitamin B-6] 100 mg Tablet 100 mg PO DAILY@08 RF: 0 cholecalciferol (vitamin D3) [Vitamin D3] 25 mcg (1,000 unit) Tablet 2,000 unit PO DAILY@08 RF: 0 albuterol sulfate 2.5 mg /3 mL (0.083 %) Solution For Nebulization 2.5 mg inhalation TID PRN (Reason: Shortness Of Breath) RF: 0 aspirin 325 mg Tablet 325 mg PO BEDTIME@1999 RF: 0 Hold Instructions: Resume on 10/18/20. Novolin 70/30 U-100 Insulin 100 unit/mL (70-30) suspension See Rx Instructions .ROUTE .COMPLEX RF: 0 hydrocortisone 2.5 % cream See Rx Instructions .ROUTE .COMPLEX RF: 0 hydralazine 25 mg tablet 25 mg PO TID@0800,1200,2000 RF: 0 ferrous sulfate 325 mg (65 mg iron) Tablet See Rx Instructions .ROUTE .COMPLEX RF: 0 albuterol sulfate 90 mcg/actuation Hfa Aerosol Inhaler 2 puff INHALATION Q6H PRN (Reason: Shortness Of Breath) RF: 0 Stool Softener 250 mg Capsule 250 mg PO BID RF: 0 Euthyrox 175 mcg tablet 175 mcg PO QAM RF: 0 sulfasalazine 500 mg tablet 500 mg PO BID@, RF: 0 Vitamin B-12 500 mcg Tablet 500 mcg PO DAILY RF: 0 ChlorTabs 4 mg Tablet See Rx Instructions .ROUTE .COMPLEX RF: 0 prednisolone acetate 1 % Drops,Suspension 1 drp ophthalmic (eye) PRN RF: 0 Benadryl 25 mg Capsule See Rx Instructions .ROUTE .COMPLEX RF: 0 Vitamin B-2 1 tab PO DAILY RF: 0 insulin lispro [Admelog U-100 Insulin lispro] 100 unit/mL Solution See Rx Instructions .ROUTE .COMPLEX RF: 0 metoprolol tartrate 100 mg tablet 100 mg PO Q12H RF: 0 pantoprazole [Protonix] 40 mg tablet,delayed release (DR/EC) 40 mg PO BID@, RF: 0 digoxin 125 mcg (0.125 mg) tablet See Rx Instructions .ROUTE .COMPLEX RF: 0 Discontinued duloxetine [Cymbalta] 60 mg capsule,delayed release(DR/EC) 60 mg PO DAILY@08 Qty: 30 RF: 2 buspirone 10 mg tablet 10 mg PO BID@08,17 Qty: 60 RF: 2 loperamide [Anti-Diarrheal (loperamide)] 2 mg Tablet 2 - 4 mg PO PRN PRN (Reason: Diarrhea) RF: 0 zinc 50 mg Tablet 50 mg PO DAILY@12 RF: 0 vitamin E 400 unit Capsule 400 unit PO DAILY@08 RF: 0 loratadine 10 mg Tablet 20 mg PO DAILY@08 RF: 0 magnesium L-lactate [Magtab] 84 mg tablet extended release 84 mg PO BID@,17 RF: 0 ketoconazole 2 % cream See Rx Instructions .ROUTE .COMPLEX RF: 0 black cohosh 40 mg Tablet 80 mg PO BID RF: 0 tramadol 50 mg tablet 50 mg PO TID RF: 0 [place] 3 Capsule 2,000 mg PO BEDTIME RF: 0 calcium 600 mg Capsule 600 mg PO DAILY RF: 0 garlic 1,000 mg Capsule 1,000 mg PO DAILY RF: 0 vitamin B complex Tablet 1 tab PO DAILY RF: 0 methylsulfonylmethane [MSM] 1,000 mg Tablet 1,000 mg PO BID RF: 0 Multivitamin Gummies 200 mcg Tablet,Chewable 1 tab PO DAILY RF: 0 cranberry 1 tab PO DAILY RF: 0 pantothenic acid (vit B5) 1 tab PO QAM RF: 0 Discharge Orders: Discharge Order (Routine); Ordered 03/16/21 Ordered By: Tim Robert Referrals: Ami Perez DO [Primary Care Provider] - Discharge Diet: Cardiac and Diabetic Discharge Activity: Use walker/crutches as instructed Patient Instructions: Opioid Safety Activity Restrictions/Additional Instructions: Your nuclear stress test was unremarkable for any ischemia of heart your pain is related to musculoskeletal Discharge Attestations Time Spent in Discharge Care*: less than 30 min Status at Discharge: Cognitive status at discharge: cognitively intact, Behavioral status at discharge: cooperative, Quality Metrics Clinical Quality Measures During this hospital stay, did patient experience: None Coding Level of Care Code Acute [facility] FW [place] note Diagnoses Chest pain R07.9 Orthostatic hypotension I95.1 Recurrent falls R29.6 Chronic atrial fibrillation I48.20 Chronic obstructive lung disease J44.9 Heart failure with preserved ejection fraction I50.33 Heart failure chronicity: acute on chronic Hypertension I10 Hypothyroidism E03.9 Hypothyroidism type: acquired Anxiety and depression F41.9; F32.9 Morbid obesity E66.01 COPD (chronic obstructive pulmonary disease) J44.9 COPD type: unspecified COPD
--- NOTE | 2021-03-16 14:21 | PC.NURSE ---
Pt discharged home. IV removed no redness or swelling noted. Pt discharge instructions given along with follow up appointments. Pt had no c/o pain or discomfort at the time of discharge.
--- NOTE | 2021-03-18 17:17 | PC.RESP ---
PULMONARY REHAB INFORMATION SENT TO PATIENT.
== END 2021-03-16 13:42 | disposition home or self-care (01) ==
LOC: ER 03-16 01:46 → ICU 03-16 02:06 → CSU 03-16 06:01
PROVIDERS: Admitting Provider Hospitalist; Emergency Provider Emergency Medicine; PCP Internal Medicine; Visit Provider Internal Medicine
DX: R07.9 Chest pain, unspecified (principal); I95.1 Orthostatic hypotension; R29.6 Repeated falls; I48.20 Chronic atrial fibrillation, unspecified; J44.9 Chronic obstructive pulmonary disease, unspecified; I50.33 Acute on chronic diastolic (congestive) heart failure; E03.9 Hypothyroidism, unspecified; F41.9 Anxiety disorder, unspecified; F32.9 Major depressive disorder, single episode, unspecified; E66.01 Morbid (severe) obesity due to excess calories; Z68.37 Body mass index [BMI] 37.0-37.9, adult; M79.7 Fibromyalgia; I48.0 Paroxysmal atrial fibrillation; Z99.81 Dependence on supplemental oxygen; I25.10 Atherosclerotic heart disease of native coronary artery without angina pectoris; Z86.16 Personal history of COVID-19; Z87.891 Personal history of nicotine dependence; I13.0 Hypertensive heart and chronic kidney disease with heart failure and stage 1 through stage 4 chronic kidney disease, or unspecified chronic kidney disease; N18.30 Chronic kidney disease, stage 3 unspecified
CPT/HCPCS: 36415; 36416; 70450; 71045; 78452; 80053; 81001; 82962; 83880; 84484; 85025; 85610; 85730; 93005; 93017; 93306; 96360; 96361; 96372; 99285; A9500; G0378; J1644; J2785; J7030; J7040

== ENCOUNTER 2021-03-23 19:48 | Emergency (ER) | payer MEDICARE, SELFPAY ==
[2021-03-23 19:51] VITALS: BP 110/69; PULSE 79; RESP 17; O2SAT 98; BMI 36.6
[2021-03-23 19:56] VITALS: TEMP 36.6
--- NOTE | 2021-03-23 20:03 | W.ED.FALL ---
HPI - Fall General: Chief Complaint: Fall Stated Complaint: FALL Time Seen by Provider: 03/23/21 20:00 History of Present Illness: HPI Narrative: Patient is a 70-year-old female comes to the ED via EMS after having a fall. Patient says she was in her house today and she got tangled up in her oxygen cord causing her to fall. She states she twisted both her right and left knees when she fell and landed on her lower back and her head hit a pillow that was leaning up against a wall. She denies any loss of consciousness but does states she has a headache. Her main complaint is lower back pain and bilateral knee pain. Patient says she has had both knees replaced. She rates the pain currently an 8 out of 10. Associated symptoms-after fall: Reports headache(s); Denies abdominal pain, chest pain, hematuria or neck pain Review of Systems Const: Denies: fever(s), chills or fatigue Eyes: Denies: change in vision or eye discomfort ENMT: Denies: throat pain, odynophagia, nasal discharge or nasal congestion Card: Denies: chest pain, palpitations, edema, swelling of feet/ankles, dyspnea on exertion or orthopnea Resp: Denies: dyspnea, productive cough or non-productive cough GI: Denies: abdominal pain, nausea, vomiting, diarrhea, constipation or hematochezia : Denies: flank pain, dysuria or hematuria Musc: Reports: back pain and extremity pain (Bilateral knee pain); Denies: neck pain or extremity swelling Skin/Breast: Denies: rash or new lesions Neuro: Reports: headache(s); Denies: numbness in extremities or weakness in extremities [facility] ED PFSH: Medical History Anxiety and depression CHF exacerbation Chronic knee pain Chronic low back pain COPD (chronic obstructive pulmonary disease) Oxygen dependent, 2 L at baseline Coronary artery disease COVID-14 August 2020 Fibromyalgia High risk medication use Hyperlipidemia Hypertension Hypothyroidism Immunization counseling Inflammatory arthritis Intermittent atrial fibrillation Because the patient history of frequent fall she was thought to be high risk for bleeding complications. So she is taking only the aspirin at this time. SHE HAS EASY BRUISING WELL Left renal mass Liver cirrhosis Low back pain of over 3 months duration Lung nodule Narrow complex tachycardia Osteoarthritis of knees, bilateral Poorly controlled diabetes mellitus Recurrent UTI Seronegative rheumatoid arthritis of both hands Unstable angina Urgency incontinence UTI (urinary tract infection) Surgical History History of cardiac cath History of cholecystectomy History of hysterectomy History of knee replacement History of thyroid surgery Family History Other CAD (coronary artery disease) Cancer Denies family history of Anesthesia complication Bleeding disorder Social History Smoking and tobacco status: former smoker Quit status (tobacco): has quit using tobacco Year quit tobacco: 2005 Second hand smoke exposure: No Alcohol intake: never Adopted: No Caregiver/support person: No Lives independently: No Household members: spouse Marital status: Current occupational status: retired History of recent travel: No Current gender identity: Female Physical Exam Const: COMMON NORMALS: no acute distress, patient oriented x3 and alert GENERAL APPEARANCE: cooperative and comfortable HENMT: COMMON NORMALS: normocephalic and atraumatic HEAD & SCALP: normocephalic and atraumatic; no Cooper's sign and no raccoon eyes MOUTH: Normal oral and palatal mucosa present THROAT: posterior oropharynx normal and uvula midline Neck/C-Spine: COMMON NORMALS: supple GENERAL: Yes normal visual inspection Resp: COMMON NORMALS: normal respiratory effort, No retractions, No use of accessory muscles and clear to auscultation bilaterally AUSCULTATION: clear to auscultation bilaterally Cardio: COMMON NORMALS: regular rate, regular rhythm, S1 normal heart sound present, S2 normal heart sound present, No gallops present (Cardio), No clicks present (Cardio), No murmurs present (Cardio) and Peripheral pulses 2+ throughout RATE: regular rate RHYTHM: regular rhythm HEART SOUNDS: S1 normal heart sound present and S2 normal heart sound present PERIPHERAL PULSES: Peripheral pulses 2+ throughout GI: COMMON NORMALS: Normal to inspection, nondistended, normoactive bowel sounds present, Soft to palpation, non-tender and no masses PALPATION: Yes Soft to palpation : COMMON NORMALS: Yes no CVA tenderness BLADDER/KIDNEY EXAM: Yes no CVA tenderness Back/Pelvis: COMMON NORMALS: no CVA tenderness LUMBAR SPINE/LOWER BACK: Yes lumbar spinal tenderness Lumbar spinal tenderness location: L2 and L3 and Yes paraspinal muscle tenderness Lumbar paraspinal muscle tenderness: bilateral Bilateral lumbar paraspinal muscle tenderness: L3 and L4 Extremity: NARRATIVE EXTREMITY EXAM: Bilateral knees were tender upon palpation especially of the medial aspect of the knee. No visible deformity, swelling or ecchymosis noted. Neurovascular intact distally. GENERAL: Yes normal exam except as noted Neuro: COMMON NORMALS: patient oriented x3, CN's II-XII intact bilaterally, moves all extremities, no focal motor deficits and no sensory deficits noted SENSORIUM/ORIENTATION: Yes alert SPEECH: speech normal Skin: GENERAL SKIN EXAM: dry skin Course Vital Signs: Vital signs: Vital Signs Temperature 97.8 F 03/23/21 19:56 Pulse Rate 88 03/23/21 22:31 Respiratory Rate 17 03/23/21 22:31 Blood Pressure 110/69 03/23/21 19:51 Pulse Oximetry 97 03/23/21 22:31 MDM - Fall MDM Narrative: Medical decision making narrative: Patient is a 70-year-old female comes to the ED via EMS after a fall. Patient tripped over her oxygen tubing causing her to fall. She denies any loss of consciousness but does state she has headache, lower back pain and bilateral knee pain. Patient appears in no acute distress or pain. Neuro exam shows no deficits. Lumbar spine tenderness and lumbar paraspinal muscle tenderness as well upon exam. X-ray of both right and left knee showed no acute findings and hardware was intact and in place. CT of head showed no acute findings. CT of lumbar spine showed no acute fractures. Patient diagnosed with lumbar back pain, bilateral knee pain after having a fall at home. She was discharged home and told to follow-up with PCP in 7 to 10 days for reevaluation. Return to ED precautions given. Patient understood and agree with plan. Imaging Data^: Xray Ortho: Attestation: I personally reviewed and interpreted this imaging study as follows: Radiologist's impression: [employer] [facility] [address] XRay Report Signed Patient: Myesha Parker Unit #: [id number] : 1950 Age/Sex: 70 / F ADM Date: 03/23/21 Loc: ER Room/Bed: Attending Dr: Ordering Provider/Ordering MD: Dennis Fish Date of Service: 03/23/21 Procedure(s): XR knee LT 3V* [id number] Accession Number(s): [id number] Report Number: [id number] PROCEDURE INFORMATION: Exam: XR Left Knee Exam date and time: 03/23/2021 8:14 PM Age: 70 years old Clinical indication: Injury or trauma; Fall; Blunt trauma; Left; Injury date: 03/23/21; Prior surgery; Surgery type: Bilat knees; Additional info: Fall with pain in knee TECHNIQUE: Imaging protocol: XR Left knee. Views: 3 views. COMPARISON: No relevant prior studies available. FINDINGS: Bones/joints: Total left knee arthroplasty changes. The bones and hardware are intact and in normal alignment. Soft tissues: Normal. Vasculature: Arterial calcifications. XR/XR knee LT 3V* [id number] IMPRESSION: 1. No acute finding. Dictated By: Thompson Snowden Signed By: Thompson Snowden Signed Date/Time: 03/23/212118 DD/ [address] [address] XRay Report Signed Patient: Myesha Parker Unit #: [id number] : 1950 Age/Sex: 70 / F ADM Date: 03/23/21 Loc: ER Room/Bed: Attending Dr: Ordering Provider/Ordering MD: Dennis Fish Date of Service: 03/23/21 Procedure(s): XR knee RT 3V* [id number] Accession Number(s): [id number] Report Number: [id number] PROCEDURE INFORMATION: Exam: XR Right Knee Exam date and time: 03/23/2021 8:14 PM Age: 70 years old Clinical indication: Injury or trauma; Fall; Blunt trauma; Right; Injury date: 03/23/21; Prior surgery; Surgery type: Bilat knees; Additional info: Fall with pain in knee TECHNIQUE: Imaging protocol: XR Right knee. Views: 3 views. COMPARISON: No relevant prior studies available. FINDINGS: Bones/joints: Total right knee arthroplasty changes. The bones and hardware are intact and in normal Soft tissues: Normal. Vasculature: Arterial calcifications. XR/XR knee RT 3V* [id number] IMPRESSION: No acute findings. Dictated By: Thompson Snowden Signed By: Thompson Snowden Signed Date/Time: 03/23/212108 DD/ 06 CT Head: Attestation: I personally reviewed and interpreted this imaging study as follows: Radiologist's impression: [facility] [address] [place] [address] CT Scan Report Signed Patient: Myesha Parker Unit #: [id number] : 1950 Age/Sex: 70 / F ADM Date: 03/23/21 Loc: ER Room/Bed: Attending Dr: Ordering Provider/Ordering MD: Dennis Fish Date of Service: 03/23/21 Procedure(s): CT head wo con* [id number] Accession Number(s): [id number] Report Number: [id number] PROCEDURE INFORMATION: Exam: CT Head Without Contrast Exam date and time: 03/23/2021 8:14 PM Age: 70 years old Clinical indication: Injury or trauma; Fall; Blunt trauma (contusions or hematomas); Additional info: Fall with headache TECHNIQUE: Imaging protocol: Computed tomography of the head without contrast. Radiation optimization: All CT scans at this facility use at least one of these dose optimization techniques: automated exposure control; mA and/or kV adjustment per patient size (includes targeted exams where dose is matched to clinical indication); or iterative reconstruction. COMPARISON: CT head wo con* [id number] 03/16/2021 12:13 AM RADIATION DOSE METRICS: Total DLP (mGy-cm): 825.74 FINDINGS: Brain: Mild cortical volume loss. Mild hypodensities in supratentorial periventricular and subcortical white matter, consistent with microangiopathy. No intracranial hemorrhage. Cerebral ventricles: No ventriculomegaly. Paranasal sinuses: Visualized sinuses are unremarkable. No fluid levels. Mastoid air cells: Visualized mastoid air cells are well aerated. Orbital cavity: Prior cataract surgery. Vasculature: No hyperdense artery. Bones/joints: Unremarkable. No acute fracture. Soft tissues: Unremarkable. CT/CT head wo con* [id number] IMPRESSION: 1. No acute intracranial abnormality. Radiation Dose CTDIVOL = (mGy): DLP = 825.74 (mGy-cm) Dictated By: Thompson Snowden Signed By: Thompson Snowden Signed Date/Time: 03/23/212058 DD/ [address]: Attestation: I personally reviewed and interpreted this imaging study as follows: Radiologist's impression: [facility] [place] [address] CT Scan Report Signed Patient: Myesha Parker Unit #: [id number] : 1950 Age/Sex: 70 / F ADM Date: 03/23/21 Loc: ER Room/Bed: Attending Dr: Ordering Provider/Ordering MD: Dennis Fish Date of Service: 03/23/21 Procedure(s): CT lumbar spine wo con* [id number] Accession Number(s): [id number] Report Number: [id number] PROCEDURE INFORMATION: Exam: CT Lumbar Spine Without Contrast Exam date and time: 03/23/2021 8:14 PM Age: 70 years old Clinical indication: Injury or trauma; Blunt trauma (contusions or hematomas); Patient HX: Fall with low back pain; Additional info: Fall with lumbar back pain TECHNIQUE: Imaging protocol: Computed tomography images of the lumbar spine without contrast. Radiation optimization: All CT scans at this facility use at least one of these dose optimization techniques: automated exposure control; mA and/or kV adjustment per patient size (includes targeted exams where dose is matched to clinical indication); or iterative reconstruction. COMPARISON: [place] [id number] 02/24/2018 9:43 AM RADIATION DOSE METRICS: Total DLP (mGy-cm): 2336.05 FINDINGS: Vertebrae: Leftward lumbar curvature. The vertebral body stature is intact. Disc space narrowing with degenerative endplate changes at L2-L3, L3-L4, and L5-S1. The facets are intact with hypertrophic degenerative changes. L1-L2: Mild circumferential disc bulge. Mild central canal stenosis. No foraminal stenosis. L2-L3: Mild disc bulge with posterior endplate spurring. Moderate right foraminal stenosis. No left foraminal stenosis. Mild central canal stenosis. L3-L4: Mild disc bulge with posterior endplate spurring. Moderate bilateral foraminal stenosis. Moderate-severe central canal stenosis. L4-L5: Mild disc bulge. No foraminal stenosis. Mild central canal stenosis. L5-S1: Mild disc bulge. Moderate bilateral bony foraminal stenosis. No central canal stenosis. Kidneys and ureters: Fluid density cyst in the left kidney, Hounsfield units less than 20. No follow-up imaging recommended. 3 mm left renal calculus. Soft tissues: Posterior lumbar subcutaneous soft tissue edema. CT/CT lumbar spine wo con* [id number] IMPRESSION: 1. No fracture or acute finding. 2. Scoliosis and multilevel degenerative changes. COMMENTS: Consistent with the [employer]'s Incidental Findings Committee white paper (J Am Cesar Radiol 2018): Any incidental renal lesion less than 1 cm or classified as too small to characterize, or any incidental cystic renal lesion characterized as simple-appearing, is likely benign. No follow-up imaging is recommended for these lesions per consensus recommendations based on imaging criteria. Radiation Dose CTDIVOL = (mGy): DLP = 2336.05 (mGy-cm) Dictated By: Thompson Snowden Signed By: Thompson Snowden Signed Date/Time: 03/23/212115 DD/ 14 Discharge Plan Discharge Patient Disposition: Home Clinical Impression: Lumbar back pain Bilateral knee pain Qualifiers: Chronicity: acute Qualified Code(s): M25.561 - Pain in right knee Fall as cause of accidental injury at home as place of occurrence Qualifiers: Encounter type: initial encounter Qualified Code(s): W19.XXXA - Unspecified fall, initial encounter Condition: Stable Prescriptions: No Action tizanidine 4 mg tablet 4 mg PO TID PRN (Reason: muscle spasticity) 30 Days Qty: 90 RF: 2 hydrocodone-acetaminophen 7.5-325 mg tablet 1 tab PO TID@,,23 PRN (Reason: pain) 30 Days Qty: 90 RF: 0 Humira Pen 40 mg/0.8 mL pen injector kit 40 mg SUBCUT Q14D Qty: 2 RF: 3 potassium chloride 20 mEq tablet extended release 20 meq PO BID@08,17 RF: 0 aripiprazole [Abilify] 5 mg tablet 5 mg PO DAILY@08 Qty: 30 RF: 2 duloxetine [Cymbalta] 30 mg capsule,delayed release(DR/EC) 30 mg PO DAILY@08 Qty: 30 RF: 2 nitroglycerin [Nitrostat] 0.4 mg tablet, sublingual 0.4 mg SUBLINGUAL Q5M PRN (Reason: Chest Pain) Qty: 30 RF: 3 furosemide 40 mg tablet 40 mg PO DAILY Qty: 90 RF: 3 folic acid 1 mg tablet 1 mg PO DAILY@08 Qty: 90 RF: 1 amlodipine 10 mg tablet 10 mg PO DAILY@08 Qty: 90 RF: 3 methotrexate sodium 2.5 mg tablet 7.5 mg PO .Q7days Qty: 15 RF: 3 prednisone 2.5 mg tablet 2.5 mg PO DAILY Qty: 30 RF: 0 atorvastatin [Lipitor] 40 mg Tablet 40 mg PO BEDTIME RF: 0 acetaminophen [Arthritis Pain Reliever] 650 mg Tablet Extended Release 650 mg PO PRN RF: 0 pyridoxine (vitamin B6) [Vitamin B-6] 100 mg Tablet 100 mg PO DAILY@08 RF: 0 cholecalciferol (vitamin D3) [Vitamin D3] 25 mcg (1,000 unit) Tablet 2,000 unit PO DAILY@08 RF: 0 albuterol sulfate 2.5 mg /3 mL (0.083 %) Solution For Nebulization 2.5 mg inhalation TID PRN (Reason: Shortness Of Breath) RF: 0 aspirin 325 mg Tablet 325 mg PO BEDTIME@1999 RF: 0 Hold Instructions: Resume on 10/18/20. Novolin 70/30 U-100 Insulin 100 unit/mL (70-30) suspension See Rx Instructions .ROUTE .COMPLEX RF: 0 hydrocortisone 2.5 % cream See Rx Instructions .ROUTE .COMPLEX RF: 0 hydralazine 25 mg tablet 25 mg PO TID@0800,1200,1999 RF: 0 ferrous sulfate 325 mg (65 mg iron) Tablet See Rx Instructions .ROUTE .COMPLEX RF: 0 albuterol sulfate 90 mcg/actuation Hfa Aerosol Inhaler 2 puff INHALATION Q6H PRN (Reason: Shortness Of Breath) RF: 0 Stool Softener 250 mg Capsule 250 mg PO BID RF: 0 Euthyrox 175 mcg tablet 175 mcg PO QAM RF: 0 sulfasalazine 500 mg tablet 500 mg PO BID@08,17 RF: 0 Vitamin B-12 500 mcg Tablet 500 mcg PO DAILY RF: 0 ChlorTabs 4 mg Tablet See Rx Instructions .ROUTE .COMPLEX RF: 0 prednisolone acetate 1 % Drops,Suspension 1 drp ophthalmic (eye) PRN RF: 0 Benadryl 25 mg Capsule See Rx Instructions .ROUTE .COMPLEX RF: 0 Vitamin B-2 1 tab PO DAILY RF: 0 insulin lispro [Admelog U-100 Insulin lispro] 100 unit/mL Solution See Rx Instructions .ROUTE .COMPLEX RF: 0 metoprolol tartrate 100 mg tablet 100 mg PO Q12H RF: 0 pantoprazole [Protonix] 40 mg tablet,delayed release (DR/EC) 40 mg PO BID@, RF: 0 digoxin 125 mcg (0.125 mg) tablet See Rx Instructions .ROUTE .COMPLEX RF: 0 Discharge Orders: Discharge ED (Routine); Ordered 03/23/21 Ordered By: Dennis Fish Referrals: Ami Perez DO [Primary Care Provider] - Discharge Diet: Regular Discharge Activity: Increase activity as tolerated Patient Instructions: Fall Prevention for Older Adults (ED), Knee Pain (ED), Back Pain (ED) Activity Restrictions/Additional Instructions: Follow-up with medical provider as directed in 7-10 days. Continue taking all home medications as prescribed. Take [id number] Tylenol or ibuprofen for any pain. Return to the ER or your medical provider if condition worsens. Please read and understand discharge instructions. Thank you for choosing [facility] for your healthcare needs today. Please realize this is an emergency room and that we are providing you with a medical screening exam and this may not be complete and all inclusive of all the testing and or work up that you may need to determine your ailment or severity of your illness. It is very important that you follow up as instructed or that you return to the Emergency Department should you have concerns or if your condition changes or worsens in any way. Coding Level of Care Code ED Developer Relations Manager for Dougie Samson Exam Comprehensive
--- NOTE | 2021-03-23 20:14 | CTR_ITS ---
PROCEDURE INFORMATION: Exam: CT Head Without Contrast Exam date and time: 03/23/2021 8:14 PM Age: 70 years old Clinical indication: Injury or trauma; Fall; Blunt trauma (contusions or hematomas); Additional info: Fall with headache TECHNIQUE: Imaging protocol: Computed tomography of the head without contrast. Radiation optimization: All CT scans at this facility use at least one of these dose optimization techniques: automated exposure control; mA and/or kV adjustment per patient size (includes targeted exams where dose is matched to clinical indication); or iterative reconstruction. COMPARISON: CT head wo con* [id number] 03/16/2021 12:13 AM RADIATION DOSE METRICS: Total DLP (mGy-cm): 825.74 FINDINGS: Brain: Mild cortical volume loss. Mild hypodensities in supratentorial periventricular and subcortical white matter, consistent with microangiopathy. No intracranial hemorrhage. Cerebral ventricles: No ventriculomegaly. Paranasal sinuses: Visualized sinuses are unremarkable. No fluid levels. Mastoid air cells: Visualized mastoid air cells are well aerated. Orbital cavity: Prior cataract surgery. Vasculature: No hyperdense artery. Bones/joints: Unremarkable. No acute fracture. Soft tissues: Unremarkable. CT/CT head wo con* [id number] IMPRESSION: 1. No acute intracranial abnormality. Radiation Dose CTDIVOL = (mGy): DLP = 825.74 (mGy-cm)
--- NOTE | 2021-03-23 20:14 | CTR_ITS ---
PROCEDURE INFORMATION: Exam: CT Lumbar Spine Without Contrast Exam date and time: 03/23/2021 8:14 PM Age: 70 years old Clinical indication: Injury or trauma; Blunt trauma (contusions or hematomas); Patient HX: Fall with low back pain; Additional info: Fall with lumbar back pain TECHNIQUE: Imaging protocol: Computed tomography images of the lumbar spine without contrast. Radiation optimization: All CT scans at this facility use at least one of these dose optimization techniques: automated exposure control; mA and/or kV adjustment per patient size (includes targeted exams where dose is matched to clinical indication); or iterative reconstruction. COMPARISON: [place] [id number] 02/24/2018 9:43 AM RADIATION DOSE METRICS: Total DLP (mGy-cm): 2336.05 FINDINGS: Vertebrae: Leftward lumbar curvature. The vertebral body stature is intact. Disc space narrowing with degenerative endplate changes at L2-L3, L3-L4, and L5-S1. The facets are intact with hypertrophic degenerative changes. L1-L2: Mild circumferential disc bulge. Mild central canal stenosis. No foraminal stenosis. L2-L3: Mild disc bulge with posterior endplate spurring. Moderate right foraminal stenosis. No left foraminal stenosis. Mild central canal stenosis. L3-L4: Mild disc bulge with posterior endplate spurring. Moderate bilateral foraminal stenosis. Moderate-severe central canal stenosis. L4-L5: Mild disc bulge. No foraminal stenosis. Mild central canal stenosis. L5-S1: Mild disc bulge. Moderate bilateral bony foraminal stenosis. No central canal stenosis. Kidneys and ureters: Fluid density cyst in the left kidney, Hounsfield units less than 20. No follow-up imaging recommended. 3 mm left renal calculus. Soft tissues: Posterior lumbar subcutaneous soft tissue edema. CT/CT lumbar spine wo con* [id number] IMPRESSION: 1. No fracture or acute finding. 2. Scoliosis and multilevel degenerative changes. COMMENTS: Consistent with the [employer]'s Incidental Findings Committee white paper (J Am Cesar Radiol 2018): Any incidental renal lesion less than 1 cm or classified as too small to characterize, or any incidental cystic renal lesion characterized as simple-appearing, is likely benign. No follow-up imaging is recommended for these lesions per consensus recommendations based on imaging criteria. Radiation Dose CTDIVOL = (mGy): DLP = 2336.05 (mGy-cm)
--- NOTE | 2021-03-23 20:14 | XRR_ITS ---
PROCEDURE INFORMATION: Exam: XR Left Knee Exam date and time: 03/23/2021 8:14 PM Age: 70 years old Clinical indication: Injury or trauma; Fall; Blunt trauma; Left; Injury date: 03/23/21; Prior surgery; Surgery type: Bilat knees; Additional info: Fall with pain in knee TECHNIQUE: Imaging protocol: XR Left knee. Views: 3 views. COMPARISON: No relevant prior studies available. FINDINGS: Bones/joints: Total left knee arthroplasty changes. The bones and hardware are intact and in normal alignment. Soft tissues: Normal. Vasculature: Arterial calcifications. XR/XR knee LT 3V* [id number] IMPRESSION: 1. No acute finding.
--- NOTE | 2021-03-23 20:14 | XRR_ITS ---
PROCEDURE INFORMATION: Exam: XR Right Knee Exam date and time: 03/23/2021 8:14 PM Age: 70 years old Clinical indication: Injury or trauma; Fall; Blunt trauma; Right; Injury date: 03/23/21; Prior surgery; Surgery type: Bilat knees; Additional info: Fall with pain in knee TECHNIQUE: Imaging protocol: XR Right knee. Views: 3 views. COMPARISON: No relevant prior studies available. FINDINGS: Bones/joints: Total right knee arthroplasty changes. The bones and hardware are intact and in normal Soft tissues: Normal. Vasculature: Arterial calcifications. XR/XR knee RT 3V* [id number] IMPRESSION: No acute findings.
[2021-03-23] MEDS: HYDROcodone-acetaminophen 5-325 mg Tablet 1 TAB PO (20:53)
[2021-03-23 22:31] VITALS: PULSE 88; RESP 17; O2SAT 97
== END 2021-03-23 22:31 | disposition home or self-care (01) ==
PROVIDERS: Emergency Provider Physician Assistant; PCP Internal Medicine
DX: M25.562 Pain in left knee (principal); M25.561 Pain in right knee; M54.5 Low back pain; I11.0 Hypertensive heart disease with heart failure; I50.9 Heart failure, unspecified; J44.9 Chronic obstructive pulmonary disease, unspecified; I25.10 Atherosclerotic heart disease of native coronary artery without angina pectoris; E78.5 Hyperlipidemia, unspecified; E03.9 Hypothyroidism, unspecified; Z79.4 Long term (current) use of insulin; Z86.16 Personal history of COVID-19; Z87.891 Personal history of nicotine dependence; Z99.81 Dependence on supplemental oxygen
CPT/HCPCS: 70450; 72131; 73562; 99283

== ENCOUNTER → 2021-04-05 07:47 | Outpatient (BNVA) | payer MEDICARE, SELFPAY | PROVIDERS: PCP Internal Medicine; Visit Provider Nurse Practitioner Psychiatric/Mental Health | DX: F43.12 Post-traumatic stress disorder, chronic (principal); F33.41 Major depressive disorder, recurrent, in partial remission; M54.5 Low back pain; G89.29 Other chronic pain; M25.569 Pain in unspecified knee; Z79.899 Other long term (current) drug therapy | CPT/HCPCS: 99213 ==

== ENCOUNTER → 2021-04-08 10:02 | Outpatient (BNVA) | payer MEDICARE, SELFPAY | PROVIDERS: PCP Internal Medicine; Visit Provider Nurse Practitioner | DX: G89.29 Other chronic pain (principal); M54.5 Low back pain; M06.041 Rheumatoid arthritis without rheumatoid factor, right hand; M06.042 Rheumatoid arthritis without rheumatoid factor, left hand; M17.0 Bilateral primary osteoarthritis of knee; M79.7 Fibromyalgia; R29.6 Repeated falls; I95.1 Orthostatic hypotension; E66.01 Morbid (severe) obesity due to excess calories; Z68.37 Body mass index [BMI] 37.0-37.9, adult; Z79.891 Long term (current) use of opiate analgesic; Z87.891 Personal history of nicotine dependence | CPT/HCPCS: 99214 ==

== ENCOUNTER → 2021-04-19 10:18 | Outpatient (BNVA) | payer MEDICARE, SELFPAY | PROVIDERS: PCP Internal Medicine; Visit Provider Internal Medicine Rheumatology | DX: M17.0 Bilateral primary osteoarthritis of knee (principal); M19.90 Unspecified osteoarthritis, unspecified site; Z71.89 Other specified counseling; Z79.899 Other long term (current) drug therapy | CPT/HCPCS: 36415; 80076; 82565; 85025; 86140 ==

== ENCOUNTER 2021-04-20 20:44 | Emergency (ER) | payer MEDICARE, SELFPAY ==
[2021-04-20 20:50] VITALS: BP 174/94; PULSE 85; RESP 18; TEMP 36.3; O2SAT 98; BMI 36.6
--- NOTE | 2021-04-20 20:53 | W.ED.NAVMDI ---
HPI - Nausea/Vomiting/Diarrhea General: Chief complaint: Abdominal Pain Stated complaint: N/V Time Seen by Provider: 04/20/21 20:52 History of Present Illness: HPI Narrative: 70-year-old female comes in this evening with 3 episodes of nausea and vomiting starting this evening. Patient reports not feeling well since last . Patient did receive a COVID-19 vaccine last Sunday. Patient reports yesterday she had 1 bout of diarrhea. Then this evening had 2 or 3 episodes of nausea and vomiting. Patient has remained nauseous. Patient was given 1 tablet of ondansetron on her way to the emergency room. Patient has COPD, chronic atrial fibrillation, osteoarthritis of the knees, history of orthostatic hypotension, morbid obesity, hypertension, hypothyroidism, polypharmacy, pancytopenia, mental health disorder. MD elicited complaint: nausea and vomiting Associated nausea: Yes Associated symtoms: Reports nausea Review of Systems General: Reports: 10 or more systems reviewed and unremarkable except in HPI and below GI: Reports: nausea and vomiting [facility] ED PFSH: Medical History Anxiety and depression CHF exacerbation Chronic knee pain Chronic low back pain COPD (chronic obstructive pulmonary disease) Oxygen dependent, 2 L at baseline Coronary artery disease COVID-14 August 2020 Fibromyalgia High risk medication use Hyperlipidemia Hypertension Hypothyroidism Immunization counseling Inflammatory arthritis Intermittent atrial fibrillation Because the patient history of frequent fall she was thought to be high risk for bleeding complications. So she is taking only the aspirin at this time. SHE HAS EASY BRUISING WELL Left renal mass Liver cirrhosis Low back pain of over 3 months duration Lung nodule Narrow complex tachycardia Osteoarthritis of knees, bilateral Poorly controlled diabetes mellitus Recurrent UTI Seronegative rheumatoid arthritis of both hands Unstable angina Urgency incontinence UTI (urinary tract infection) Surgical History History of cardiac cath History of cholecystectomy History of hysterectomy History of knee replacement History of thyroid surgery Family History Other CAD (coronary artery disease) Cancer Denies family history of Anesthesia complication Bleeding disorder Social History Smoking and tobacco status: former smoker Quit status (tobacco): has quit using tobacco Year quit tobacco: 2005 Second hand smoke exposure: No Alcohol intake: never Adopted: No Caregiver/support person: No Lives independently: No Household members: spouse Marital status: Current occupational status: retired History of recent travel: No Current gender identity: Female Physical Exam Const: COMMON NORMALS: no acute distress and patient oriented x3 GENERAL APPEARANCE: cooperative HENMT: COMMON NORMALS: normocephalic and Normal external nose present HEAD & SCALP: normal to inspection and normocephalic NOSE: Normal external nose present MOUTH: Normal oral and palatal mucosa present Eye: GENERAL EYE: appearance normal, both eyes and all related structures Neck/C-Spine: COMMON NORMALS: full ROM Chest: COMMONS NORMALS: normal inspection of the chest Resp: COMMON NORMALS: normal respiratory effort and clear to auscultation bilaterally EFFORT & INSPECTION: Yes able to speak in complete sentences AUSCULTATION: clear to auscultation bilaterally Cardio: COMMON NORMALS: regular rate and regular rhythm RATE: regular rate RHYTHM: regular rhythm GI: COMMON NORMALS: Soft to palpation and non-tender AUSCULTATION: Yes normoactive bowel sounds PALPATION: Yes Soft to palpation : COMMON NORMALS: Yes no CVA tenderness BLADDER/KIDNEY EXAM: Yes no CVA tenderness Back/Pelvis: COMMON NORMALS: no CVA tenderness and thoracic and lumbar spine normal to inspection Extremity: COMMON NORMALS: normal to inspection Neuro: COMMON NORMALS: patient oriented x3 and moves all extremities Psych: COMMON NORMALS: mental status grossly normal and cooperative Skin: COMMON NORMALS: no rashes or lesions noted GENERAL SKIN EXAM: no rashes or lesions noted Course Vital Signs: Vital signs: Vital Signs Temperature 97.3 F L 04/20/21 20:50 Pulse Rate 85 04/20/21 20:50 Respiratory Rate 16 04/20/21 21:45 Blood Pressure 174/94 04/20/21 20:50 Pulse Oximetry 97 04/20/21 21:45 MDM - Nausea/Vomiting/Diarrhea MDM Narrative: Medical decision making narrative: 70-year-old female comes in today with complaints of nausea and vomiting after eating her supper. On exam abdomen soft nontender. Skin is warm and dry. Vital signs are normal except for some elevation in blood pressure. Patient did report that she has not been taking her medications as she has been prescribed. Differential diagnosis includes not limited to gastroenteritis, gastritis, pancreatitis, bowel obstruction, bowel perforation. Acute abdomen series x-ray indicated no bowel obstruction or perforation. Laboratory values were unremarkable and similar to previous exams. Patient was given Reglan and famotidine for her discomfort. Patient was recommended to continue with routine medications and use Zofran at home for her nausea. Patient was recommended to follow-up with primary care for further instructions. Patient was recommended to return to the ER for high fever or new concerns. Lab Data: Labs: Lab Results 04/20/21 04/20/21 04/20/21 Range/Units 21:40 21:40 21:56 WBC 7.9 (4.0-10.0) 10^3/ uL RBC 3.10 L (4.1-5.3) 10^6/u L Hgb 10.2 L (11.5-15.3) g/dL Hct 31.3 L (37.0-47.0) % MCV 101.0 H (81-99) fl MCH 32.9 (28.0-34.0) pg MCHC 32.6 (30.0-36.0) g/dL RDW 13.4 (12.1-15.1) % Plt Count 245 (130-400) 10^3/c mm MPV 9.3 (7.4-10.4) fL Neut % (Auto) 81.4 % Lymph % (Auto) 10.5 % Buchanan % (Auto) 7.0 % Eos % (Auto) 0.1 % Baso % (Auto) 0.6 % Neut # (Auto) 6.40 (1.8-7.7) 10^3/u L Lymph # (Auto) 0.8 (0.8-4.8) 10^3/u L Buchanan # (Auto) 0.6 (0.2-0.9) 10^3/u L Eos # (Auto) 0.0 (0.0-0.8) 10^3/u L Baso # (Auto) 0.1 (0.0-0.1) 10^3/u L Nucleated RBC % (a uto) 0 % Nucleated RBCs # 0.0 /100WBC Sodium 141 (136-145) mmol/L Potassium 4.0 (3.5-5.1) mmol/L Chloride 97 L (98-107) mmol/L Carbon Dioxide 35 H (22-29) mmol/L Anion Gap 13.0 (5-19) BUN 21 (8-23) mg/dL Creatinine 1.0 H (0.5-0.9) mg/dL GFR Calculation Not Reportable Glucose 364 H (65-115) mg/dL Calculated Osmolal ity 310 H (285-295) mOsm/k g Calcium 9.9 (8.5-10.5) mg/dL Total Bilirubin 0.3 (0.15-1.2) mg/dL AST 26 (0-32) U/L ALT 20 (0-33) U/L Alkaline Phosphata se 110 H (35-105) IU/L Troponin T Gen 5 n g/L 25 H (0-10) ng/L Total Protein 6.5 L (6.6-8.7) g/dL Albumin 3.9 (3.5-5.2) g/dL Globulin 2.6 (1.3-4.6) g/dL Lipase 47 (13-60) U/L Discharge Plan Discharge Patient Disposition: Home Clinical Impression: Gastritis Qualifiers: Gastritis type: unspecified gastritis Chronicity: acute Gastritis bleeding: without bleeding Qualified Code(s): K29.00 - Acute gastritis without bleeding Condition: Stable Prescriptions: New ondansetron 4 mg tablet,disintegrating 4 mg PO Q8H PRN (Reason: nausea and vomiting) Qty: 10 RF: 0 No Action Humira Pen 40 mg/0.8 mL pen injector kit 40 mg SUBCUT Q14D Qty: 2 RF: 3 tizanidine 4 mg tablet 4 mg PO TID PRN (Reason: muscle spasticity) 30 Days Qty: 90 RF: 2 hydrocodone-acetaminophen 7.5-325 mg tablet 1 tab PO TID@08,,23 PRN (Reason: pain) 30 Days Qty: 90 RF: 0 hydrocodone-acetaminophen 7.5-325 mg tablet 1 tab PO TID PRN (Reason: pain) 30 Days Qty: 90 RF: 0 tramadol 50 mg tablet 100 mg PO TID PRN (Reason: pain) Qty: 180 RF: 1 potassium chloride 20 mEq tablet extended release 20 meq PO BID@08,17 RF: 0 aripiprazole [Abilify] 5 mg tablet 5 mg PO DAILY@08 Qty: 30 RF: 2 duloxetine [Cymbalta] 30 mg capsule,delayed release(DR/EC) 30 mg PO DAILY@08 Qty: 30 RF: 2 nitroglycerin [Nitrostat] 0.4 mg tablet, sublingual 0.4 mg SUBLINGUAL Q5M PRN (Reason: Chest Pain) Qty: 30 RF: 3 furosemide 40 mg tablet 40 mg PO DAILY Qty: 90 RF: 3 folic acid 1 mg tablet 1 mg PO DAILY@08 Qty: 90 RF: 1 amlodipine 10 mg tablet 10 mg PO DAILY@08 Qty: 90 RF: 3 methotrexate sodium 2.5 mg tablet 7.5 mg PO .Q7days Qty: 15 RF: 3 sulfasalazine 500 mg tablet 500 mg PO BID@08,17 Qty: 60 RF: 0 prednisone 2.5 mg tablet 2.5 mg PO DAILY Qty: 30 RF: 0 atorvastatin [Lipitor] 40 mg Tablet 40 mg PO BEDTIME RF: 0 acetaminophen [Arthritis Pain Reliever] 650 mg Tablet Extended Release 650 mg PO PRN RF: 0 pyridoxine (vitamin B6) [Vitamin B-6] 100 mg Tablet 100 mg PO DAILY@08 RF: 0 cholecalciferol (vitamin D3) [Vitamin D3] 25 mcg (1,000 unit) Tablet 2,000 unit PO DAILY@08 RF: 0 albuterol sulfate 2.5 mg /3 mL (0.083 %) Solution For Nebulization 2.5 mg inhalation TID PRN (Reason: Shortness Of Breath) RF: 0 aspirin 325 mg Tablet 325 mg PO BEDTIME@1999 RF: 0 Hold Instructions: Resume on 10/18/20. Novolin 70/30 U-100 Insulin 100 unit/mL (70-30) suspension See Rx Instructions .ROUTE .COMPLEX RF: 0 hydrocortisone 2.5 % cream See Rx Instructions .ROUTE .COMPLEX RF: 0 hydralazine 25 mg tablet 25 mg PO TID@0800,1200,1999 RF: 0 ferrous sulfate 325 mg (65 mg iron) Tablet See Rx Instructions .ROUTE .COMPLEX RF: 0 albuterol sulfate 90 mcg/actuation Hfa Aerosol Inhaler 2 puff INHALATION Q6H PRN (Reason: Shortness Of Breath) RF: 0 Stool Softener 250 mg Capsule 250 mg PO BID RF: 0 Euthyrox 175 mcg tablet 175 mcg PO QAM RF: 0 Vitamin B-12 500 mcg Tablet 500 mcg PO DAILY RF: 0 ChlorTabs 4 mg Tablet See Rx Instructions .ROUTE .COMPLEX RF: 0 prednisolone acetate 1 % Drops,Suspension 1 drp ophthalmic (eye) PRN RF: 0 Benadryl 25 mg Capsule See Rx Instructions .ROUTE .COMPLEX RF: 0 Vitamin B-2 1 tab PO DAILY RF: 0 insulin lispro [Admelog U-100 Insulin lispro] 100 unit/mL Solution See Rx Instructions .ROUTE .COMPLEX RF: 0 metoprolol tartrate 100 mg tablet 100 mg PO Q12H RF: 0 pantoprazole [Protonix] 40 mg tablet,delayed release (DR/EC) 40 mg PO BID@ RF: 0 digoxin 125 mcg (0.125 mg) tablet See Rx Instructions .ROUTE .COMPLEX RF: 0 Discharge Orders: Discharge ED (Routine); Ordered 04/20/21 Ordered By: William Quan Referrals: Ami Perez DO [Primary Care Provider] - Discharge Diet: Advance as tolerated Discharge Activity: Increase activity as tolerated Patient Instructions: Gastritis (ED), Opioid Safety Activity Restrictions/Additional Instructions: Clear liquid diet until your nausea improves. After that increase the diet slowly to a bland diet. Avoid really greasy foods or really spicy foods. Continue with routine medications as directed. Follow-up with primary care for further instructions and recommendations. Return to the ER for new concerns. 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
--- NOTE | 2021-04-20 20:59 | XRR_ITS ---
PROCEDURE INFORMATION: Exam: XR Complete Acute Abdomen Series Including Chest Exam date and time: 04/20/2021 8:59 PM Age: 70 years old Clinical indication: Nausea and vomiting; Additional info: Abd pain, n/v TECHNIQUE: Imaging protocol: XR complete acute abdomen series, including 2 or more views of the abdomen and a single view chest. Total images: 3 COMPARISON: CT abdomen pelvis wo con [id number] 11/02/2020 6:11 PM FINDINGS: Lungs: No visible active interstitial or alveolar airspace disease. Rare calcified granuloma of antecedent disease. Pleural spaces: No pleural effusions. No pneumothorax. Heart/Mediastinum: Cardiomegaly with arteriosclerosis. Gastrointestinal tract: Nonobstructive bowel pattern. No visible adynamic or reactive ileus. Intraperitoneal space: No visible pneumoperitoneum. Bones/joints: Degenerative disease and degenerative disc disease of the spine with scoliosis. Soft tissues: Obesity. XR/XR acute abdomen series [id number] IMPRESSION: Nonacute.
[2021-04-20] MEDS: metoclopramide 5 mg/mL SDV 2 mL IVP ×2 (21:34→22:51)
[2021-04-20 21:45] VITALS: RESP 16; O2SAT 97
[2021-04-20 21:52] LABS: Basophils # 0.1 10^3/uL (0.0-0.1); Basophils % 0.6 %; Eosinophils % 0.1 %; Hematocrit 31.3 % (37.0-47.0); Hemoglobin 10.2 g/dL (11.5-15.3); Lymphocytes # 0.8 10^3/uL (0.8-4.8); Lymphocytes % 10.5 %; Mean Corpuscular HGB Conc 32.6 g/dL (30.0-36.0); Mean Corpuscular Hemoglobin 32.9 pg (28.0-34.0); Mean Platelet Volume 9.3 fL (7.4-10.4); Monocytes # 0.6 10^3/uL (0.2-0.9); Neutrophils % 81.4 %; Nucleated Red Blood Cells % 0 %; Platelet Count 245 10^3/cmm (130-400); Red Cell Distribution Width 13.4 % (12.1-15.1); White Blood Count 7.9 10^3/uL (4.0-10.0)
[2021-04-20 22:47] LABS: Troponin T (5th) Once 25 ng/L (0-10)
[2021-04-20 22:49] LABS: Alanine Aminotransferase 20 U/L (0-33); Albumin Level 3.9 g/dL (3.5-5.2); Alkaline Phosphatase 110 IU/L (35-105); Aspartate Amino Transferase 26 U/L (0-32); Blood Urea Nitrogen 21 mg/dL (8-23); Calcium 9.9 mg/dL (8.5-10.5); Carbon Dioxide 35 mmol/L (22-29); Chloride 97 mmol/L (98-107); Globulin 2.6 g/dL (1.3-4.6); Glucose 364 mg/dL (65-115); Lipase 47 U/L (13-60); Osmolality Calculated 310 mOsm/kg (285-295); Sodium 141 mmol/L (136-145); Total Bilirubin 0.3 mg/dL (0.15-1.2); Total Protein 6.5 g/dL (6.6-8.7)
[2021-04-21] MEDS: famotidine 20 mg/2 mL INJ 40 MG IVP (00:56)
[2021-04-21] MEDS: lidocaine 2% viscous 15 ML, aluminum-mag hydrox-simethicon 30 ML, sucralfate oral liq 1 GM PO (00:57)
[2021-04-21 06:42] VITALS: PULSE 78; RESP 16; O2SAT 97
== END 2021-04-21 06:45 | disposition home or self-care (01) ==
PROVIDERS: Emergency Provider Nurse Practitioner Family; PCP Internal Medicine
DX: K29.00 Acute gastritis without bleeding (principal); Z79.82 Long term (current) use of aspirin; Z79.4 Long term (current) use of insulin; I11.0 Hypertensive heart disease with heart failure; I50.9 Heart failure, unspecified; J44.9 Chronic obstructive pulmonary disease, unspecified; I25.10 Atherosclerotic heart disease of native coronary artery without angina pectoris; E78.5 Hyperlipidemia, unspecified; Z87.891 Personal history of nicotine dependence
CPT/HCPCS: 36415; 74022; 80053; 83690; 84484; 85025; 96374; 96375; 99283; J2765; J3490

== ENCOUNTER → 2021-04-25 09:22 | Outpatient (BNVA) | payer MEDICARE, SELFPAY | PROVIDERS: PCP Internal Medicine; Visit Provider Internal Medicine Rheumatology | DX: M06.041 Rheumatoid arthritis without rheumatoid factor, right hand (principal); M06.042 Rheumatoid arthritis without rheumatoid factor, left hand; Z79.899 Other long term (current) drug therapy; M47.22 Other spondylosis with radiculopathy, cervical region; M47.26 Other spondylosis with radiculopathy, lumbar region; M48.061 Spinal stenosis, lumbar region without neurogenic claudication; M79.7 Fibromyalgia; Z96.653 Presence of artificial knee joint, bilateral; J44.9 Chronic obstructive pulmonary disease, unspecified; M81.0 Age-related osteoporosis without current pathological fracture; Z87.310 Personal history of (healed) osteoporosis fracture; E11.42 Type 2 diabetes mellitus with diabetic polyneuropathy; Z79.4 Long term (current) use of insulin; Z91.81 History of falling; Z71.89 Other specified counseling; Z87.891 Personal history of nicotine dependence | CPT/HCPCS: 99214 ==

== ENCOUNTER 2021-05-06 11:01 | Emergency (ER) | payer MEDICARE, SELFPAY ==
[2021-05-06 11:20] VITALS: BP 90/49; PULSE 64; RESP 15; TEMP 36.9; O2SAT 95; BMI 36.6
--- NOTE | 2021-05-06 13:13 | XR_ITS ---
WS: [id number] Lumbar spine, 3 views, 05/06/2021 Clinical Data: low back pain Comparison: Lumbar spine, 01/29/2019. Findings: No compression fractures or subluxation is seen. There is disc space narrowing at L2-L3, L3-L4 and L5 -S1. There is anterior osteophyte formation at all the lumbar vertebral bodies. There is a levoscolio sis. The transverse processes and SI joints are normal. There is calcification in the wall of the abdominal aorta but no aneurysm XR/XR lumbar spine 2-3V* [id number] Impression: 1. Levoscoliosis and osteoarthritis. 2. Degenerative disc narrowing at L2-L3, L3-L4 and L5-S1.
[2021-05-06 14:26] VITALS: BP 120/60; PULSE 70; RESP 17; O2SAT 98
--- NOTE | 2021-05-06 14:38 | CTR_ITS ---
PROCEDURE INFORMATION: Exam: CT Lumbar Spine Without Contrast Exam date and time: 05/06/2021 2:38 PM Age: 70 years old Clinical indication: Injury or trauma; Blunt trauma (contusions or hematomas); Patient HX: Backwards fall this am; Additional info: Pain TECHNIQUE: Imaging protocol: Computed tomography images of the lumbar spine without contrast. Radiation optimization: All CT scans at this facility use at least one of these dose optimization techniques: automated exposure control; mA and/or kV adjustment per patient size (includes targeted exams where dose is matched to clinical indication); or iterative reconstruction. COMPARISON: CT lumbar spine wo con* [id number] 03/23/2021 8:30 PM RADIATION DOSE METRICS: Total DLP (mGy-cm): 1578.22 FINDINGS: Vertebrae: Mild levoscoliosis of the lumbar spine. Vertebral body heights are preserved. No compression fractures are noted. No spondylolisthesis or spondylolysis. Degenerative changes of the facet joints are noted. Discs/Spinal canal/Neural foramina: Severe degeneration of the lumbar intervertebral discs. No large disc protrusions. Mild to moderate spinal canal stenosis noted at each lumbar level. Soft tissues: Unremarkable. CT/CT lumbar spine wo con* [id number] IMPRESSION: No acute abnormality of the lumbar spine demonstrated. Radiation Dose CTDIVOL = (mGy): DLP = 1578.22 (mGy-cm)
--- NOTE | 2021-05-06 14:38 | CTR_ITS ---
PROCEDURE INFORMATION: Exam: CT Cervical Spine Without Contrast Exam date and time: 05/06/2021 2:38 PM Age: 70 years old Clinical indication: Injury or trauma; Blunt trauma; Patient HX: Backwards fall this am; Additional info: Pain TECHNIQUE: Imaging protocol: Computed tomography images of the cervical spine without contrast. Radiation optimization: All CT scans at this facility use at least one of these dose optimization techniques: automated exposure control; mA and/or kV adjustment per patient size (includes targeted exams where dose is matched to clinical indication); or iterative reconstruction. COMPARISON: CT cervical spin wo con* [id number] 12/22/2020 4:06 AM RADIATION DOSE METRICS: Total DLP (mGy-cm): 831.54 FINDINGS: Bones/joints: Mild straightening .of the cervical lordosis, which may indicate muscle spasm. 2 mm chronic anterior subluxation of C3 on C4, secondary to degeneration of the facet joints. This is unchanged. Discs/Spinal canal/Neural foramina: There is severe disk degeneration noted C4-C5, C5-C6, and C6-C7. No large disc protrusion at any level. No severe spinal canal stenosis. Thyroid: Coarse benign calcifications are noted in the thyroid gland. Lungs: The lung apices are unremarkable. Pleural spaces: No apical pneumothorax demonstrated. Soft tissues: The soft tissues appear unremarkable. CT/CT cervical spin wo con* [id number] IMPRESSION: 1. Mild straightening .of the cervical lordosis, which may indicate muscle spasm. 2. No acute abnormality of the cervical spine demonstrated. 3. There is no interval change from the prior examination. Radiation Dose CTDIVOL = (mGy): DLP = 831.54 (mGy-cm)
--- NOTE | 2021-05-06 14:38 | CTR_ITS ---
PROCEDURE INFORMATION: Exam: CT Thoracic Spine Without Contrast Exam date and time: 05/06/2021 2:38 PM Age: 70 years old Clinical indication: Injury or trauma; Blunt trauma (contusions or hematomas); Patient HX: Backwards fall this am; Additional info: Pain TECHNIQUE: Imaging protocol: Computed tomography images of the thoracic spine without contrast. Radiation optimization: All CT scans at this facility use at least one of these dose optimization techniques: automated exposure control; mA and/or kV adjustment per patient size (includes targeted exams where dose is matched to clinical indication); or iterative reconstruction. COMPARISON: [place] Thoracic [place]* [id number] 02/24/2018 9:40 AM RADIATION DOSE METRICS: Total DLP (mGy-cm): 1904.85 FINDINGS: Vertebrae: Vertebral body heights are preserved. No compression fractures are noted. Vertebral alignment is physiologic. Discs/Spinal canal/Neural foramina: Diffuse disc degeneration throughout the thoracic spine. No large disc protrusions. No spinal canal stenosis. Soft tissues: Paraspinous soft tissues are unremarkable. CT/CT thoracic spin wo con* [id number] IMPRESSION: 1. Diffuse degenerative changes are noted throughout the thoracic spine. 2. No acute fracture or other acute abnormality of the thoracic spine. Radiation Dose CTDIVOL = (mGy): DLP = 1904.85 (mGy-cm)
--- NOTE | 2021-05-06 14:40 | ED_ITS ---
HPI - Fall General: Chief Complaint: Fall Stated Complaint: Lower back pain, up left side to neck Time Seen by Provider: 05/06/21 14:14 History of Present Illness: HPI Narrative: 70-year-old female presents emergency complaining of pain in her entire back. This morning around 5 AM she got up to go to the bathroom she did not quite make it to the bathroom she felt lightheaded felt like she was going to fall she fell backwards into a door frame and then essentially lowered herself in a controlled fall of sorts to the ground. She did not strike her head she did not lose consciousness she reports pain up and down her back from her neck into her low back. She normally uses a walker at home. She has some chronic bladder incontinence as well as a chronic left foot paresthesias. She denies any other injuries. About 2 weeks ago she fell in a similar fashion I was not evaluated. She is unable to localize the pain in her back except to saying its in the lower back and radiates up to the left side of her neck. She is not on any anticoagulants she did not strike her head she did not lose consciousness MD complaint: fall Onset (ago): hour(s) Fall from: standing Fall witnessed: no Place fall occurred: home Loss of consciousness: None Prolonged down time: no Context: history of frequent falls Location of injury: back Quality: aching Associated symptoms-after fall: Denies abdominal pain, chest pain, confusion, difficulty walking, headache(s), hematuria, lightheadedness, neck pain, numbness, short of breath, vertigo or weakness Review of Systems Card: Denies: chest pain or lightheadedness GI: Denies: abdominal pain : Denies: hematuria Musc: Denies: neck pain Neuro: Denies: headache(s), difficulty walking, vertigo or confusion PFSH ED PFSH: Medical History Anxiety and depression CHF exacerbation Chronic knee pain Chronic low back pain COPD (chronic obstructive pulmonary disease) Oxygen dependent, 2 L at baseline Coronary artery disease COVID-14 August 2020 Fibromyalgia High risk medication use Hyperlipidemia Hypertension Hypothyroidism Immunization counseling Inflammatory arthritis Intermittent atrial fibrillation Because the patient history of frequent fall she was thought to be high risk for bleeding complications. So she is taking only the aspirin at this time. SHE HAS EASY BRUISING WELL Left renal mass Liver cirrhosis Low back pain of over 3 months duration Lung nodule Narrow complex tachycardia Osteoarthritis of knees, bilateral Poorly controlled diabetes mellitus Recurrent UTI Seronegative rheumatoid arthritis of both hands Unstable angina Urgency incontinence UTI (urinary tract infection) Surgical History History of cardiac cath History of cholecystectomy History of hysterectomy History of knee replacement History of thyroid surgery Family History Other CAD (coronary artery disease) Cancer Denies family history of Anesthesia complication Bleeding disorder Social History Smoking and tobacco status: former smoker Quit status (tobacco): has quit using tobacco Year quit tobacco: 2005 Second hand smoke exposure: No Alcohol intake: never Adopted: No Caregiver/support person: No Lives independently: No Household members: spouse Marital status: Current occupational status: retired History of recent travel: No Current gender identity: Female Physical Exam Const: COMMON NORMALS: no acute distress GENERAL APPEARANCE: cooperative and comfortable ORIENTATION/CONSCIOUSNESS: Yes awake, Yes oriented to person, Yes oriented to place and Yes oriented to time HENMT: COMMON NORMALS: normocephalic, atraumatic and hearing grossly normal bilaterally HEAD & SCALP: normocephalic and atraumatic Neck/C-Spine: COMMON NORMALS: no JVD Resp: COMMON NORMALS: normal respiratory effort, No retractions, No use of accessory muscles and clear to auscultation bilaterally AUSCULTATION: clear to auscultation bilaterally Cardio: COMMON NORMALS: no JVD, regular rate, regular rhythm and No murmurs present (Cardio) RATE: regular rate RHYTHM: regular rhythm GI: COMMON NORMALS: Soft to palpation and No hepatosplenomegaly present AUSCULTATION: Yes normoactive bowel sounds PALPATION: Yes Soft to palpation, No Tenderness to palpation present (GI), No Guarding due to palpation present (GI) and Yes No hepatosplenomegaly present Extremity: COMMON NORMALS: normal to inspection, capillary refill normal, no clubbing, cyanosis or edema, no calf tenderness and no pedal edema Neuro: SENSORIUM/ORIENTATION: Yes oriented to person, Yes oriented to place and Yes oriented to time Skin: COMMON NORMALS: no rashes or lesions noted GENERAL SKIN EXAM: no rashes or lesions noted Course Vital Signs: Vital signs: Vital Signs Temperature 98.4 F 05/06/21 11:20 Pulse Rate 65 05/06/21 17:33 Respiratory Rate 21 H 05/06/21 17:33 Blood Pressure 116/56 05/06/21 17:33 Pulse Oximetry 99 05/06/21 17:33 MDM - Fall MDM Narrative: Medical decision making narrative: Imaging reviewed on chart. Discussed results with the patient. No acute fractures. Discharge home continue current opioid medication for muscle relaxers as previously prescribed follow-up as needed Discharge Plan Discharge Patient Disposition: Home Clinical Impression: Fall, Back pain Condition: Stable Prescriptions: No Action tizanidine 4 mg tablet 4 mg PO TID PRN (Reason: muscle spasticity) 30 Days Qty: 90 RF: 2 hydrocodone-acetaminophen 7.5-325 mg tablet 1 tab PO TID PRN (Reason: pain) 30 Days Qty: 90 RF: 0 tramadol 50 mg tablet 100 mg PO TID PRN (Reason: pain) Qty: 180 RF: 1 potassium chloride 20 mEq tablet extended release 20 meq PO BID@08,17 RF: 0 aripiprazole [Abilify] 5 mg tablet 5 mg PO DAILY@08 Qty: 30 RF: 2 duloxetine [Cymbalta] 30 mg capsule,delayed release(DR/EC) 30 mg PO DAILY@08 Qty: 30 RF: 2 Humira Pen 40 mg/0.8 mL pen injector kit 40 mg SUBCUT Q14D Qty: 2 RF: 3 folic acid 1 mg tablet 1 mg PO DAILY@08 Qty: 90 RF: 1 methotrexate sodium 2.5 mg tablet 7.5 mg PO .Q7days Qty: 15 RF: 3 prednisone 2.5 mg tablet 2.5 mg PO DAILY Qty: 90 RF: 1 sulfasalazine 500 mg tablet 500 mg PO BID@08,17 Qty: 60 RF: 3 nitroglycerin [Nitrostat] 0.4 mg tablet, sublingual 0.4 mg SUBLINGUAL Q5M PRN (Reason: Chest Pain) Qty: 30 RF: 3 furosemide 40 mg tablet 40 mg PO DAILY Qty: 90 RF: 3 amlodipine 10 mg tablet 10 mg PO DAILY@08 Qty: 90 RF: 3 atorvastatin [Lipitor] 40 mg Tablet 40 mg PO BEDTIME RF: 0 acetaminophen [Arthritis Pain Reliever] 650 mg Tablet Extended Release 650 mg PO PRN RF: 0 pyridoxine (vitamin B6) [Vitamin B-6] 100 mg Tablet 100 mg PO DAILY@08 RF: 0 cholecalciferol (vitamin D3) [Vitamin D3] 25 mcg (1,000 unit) Tablet 2,000 unit PO DAILY@08 RF: 0 albuterol sulfate 2.5 mg /3 mL (0.083 %) Solution For Nebulization 2.5 mg inhalation TID MDD SEE PHARMACY COMMENT PRN (Reason: Shortness Of Breath) RF: 0 aspirin 325 mg Tablet 325 mg PO BEDTIME@1999 RF: 0 Hold Instructions: Resume on 10/18/20. Novolin 70/30 U-100 Insulin 100 unit/mL (70-30) suspension See Rx Instructions .ROUTE .COMPLEX RF: 0 hydrocortisone 2.5 % cream See Rx Instructions .ROUTE .COMPLEX RF: 0 hydralazine 25 mg tablet 25 mg PO TID@0800,1200,1999 RF: 0 albuterol sulfate 90 mcg/actuation Hfa Aerosol Inhaler 2 puff INHALATION Q6H PRN (Reason: Shortness Of Breath) RF: 0 docusate sodium [Stool Softener] 250 mg Capsule 250 mg PO BID RF: 0 levothyroxine [Euthyrox] 175 mcg tablet 175 mcg PO DAILY RF: 0 cyanocobalamin (vitamin B-12) [Vitamin B-12] 500 mcg Tablet 500 mcg PO DAILY RF: 0 chlorpheniramine maleate [ChlorTabs] 4 mg Tablet See Rx Instructions .ROUTE .COMPLEX RF: 0 prednisolone acetate 1 % Drops,Suspension 1 drp ophthalmic (eye) PRN RF: 0 diphenhydramine HCl [Benadryl] 25 mg Capsule See Rx Instructions .ROUTE .COMPLEX RF: 0 Vitamin B-2 1 tab PO DAILY RF: 0 insulin lispro [Admelog U-100 Insulin lispro] 100 unit/mL Solution See Rx Instructions .ROUTE .COMPLEX RF: 0 metoprolol tartrate 100 mg tablet 100 mg PO Q12H RF: 0 pantoprazole [Protonix] 40 mg tablet,delayed release (DR/EC) 40 mg PO BID@,17 RF: 0 digoxin 125 mcg (0.125 mg) tablet See Rx Instructions .ROUTE .COMPLEX RF: 0 duloxetine 60 mg capsule,delayed release(DR/EC) 60 mg PO DAILY RF: 0 ferrous gluconate 324 mg (37.5 mg iron) tablet See Rx Instructions .ROUTE .COMPLEX RF: 0 buspirone 10 mg tablet 10 mg PO BID RF: 0 magnesium L-lactate 84 mg tablet extended release 84 mg PO DAILY RF: 0 Discharge Orders: Discharge ED (Routine); Ordered 05/06/21 Ordered By: Kenrick Treviño Referrals: Ami Perez DO [Primary Care Provider] - Patient Instructions: Opioid Safety Activity Restrictions/Additional Instructions: Follow-up with primary care as needed. 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
[2021-05-06] MEDS: HYDROcodone-acetaminophen 5-325 mg Tablet 2 TAB PO (14:48)
[2021-05-06 17:09] VITALS: BP 134/59; PULSE 60; RESP 17; O2SAT 95
[2021-05-06 17:33] VITALS: BP 116/56; PULSE 65; RESP 21; O2SAT 99
== END 2021-05-06 17:33 | disposition home or self-care (01) ==
PROVIDERS: Emergency Provider Family Medicine; PCP Internal Medicine
DX: M54.9 Dorsalgia, unspecified (principal); Z79.82 Long term (current) use of aspirin; Z79.4 Long term (current) use of insulin; I11.0 Hypertensive heart disease with heart failure; I50.9 Heart failure, unspecified; J44.9 Chronic obstructive pulmonary disease, unspecified; I25.10 Atherosclerotic heart disease of native coronary artery without angina pectoris; E78.5 Hyperlipidemia, unspecified; Z87.891 Personal history of nicotine dependence
CPT/HCPCS: 72100; 72125; 72128; 72131; 99283

== ENCOUNTER 2021-05-20 01:21 | Emergency (ER) | payer MEDICARE, SELFPAY ==
[2021-05-20 01:22] VITALS: BP 103/51; PULSE 85; RESP 19; TEMP 36.9; O2SAT 98; BMI 33.3
--- NOTE | 2021-05-20 01:24 | CTR_ITS ---
PROCEDURE INFORMATION: Exam: CT Cervical Spine Without Contrast Exam date and time: 05/20/2021 1:24 AM Age: 70 years old Clinical indication: Injury or trauma; Blunt trauma; Prior surgery; Surgery type: Thyroid; Patient HX: Fall out of wheelchair forty five minutes prior to er arrival. No loc. C/O head, neck, and back pain. History of multiple falls. TECHNIQUE: Imaging protocol: Computed tomography images of the cervical spine without contrast. Radiation optimization: All CT scans at this facility use at least one of these dose optimization techniques: automated exposure control; mA and/or kV adjustment per patient size (includes targeted exams where dose is matched to clinical indication); or iterative reconstruction. COMPARISON: CT cervical spin wo con* [id number] 05/06/2021 4:16 PM RADIATION DOSE METRICS: Total DLP (mGy-cm): 1105.66 FINDINGS: Bones/joints: On axial CT images, no definite acute fracture is visible. Sagittal and coronal reconstructions show no acute fracture or subluxation. Moderate to severe degenerative disc changes and facet joint arthritis at several levels. Discs/Spinal canal/Neural foramina: No definite/significant disc herniation by CT, MRI could be more sensitive if clinically indicated. Mastoid air cells: Small amount of fluid in left mastoid air cells, similar to prior exam. No visible fracture in this region. Lungs: No significant acute finding in the upper lungs. CT/CT cervical spin wo con* [id number] IMPRESSION: 1. No definite acute fracture or subluxation by CT. 2. Other findings discussed above. Radiation Dose CTDIVOL = (mGy): DLP = 1105.66 (mGy-cm)
--- NOTE | 2021-05-20 01:24 | CTR_ITS ---
PROCEDURE INFORMATION: Exam: CT Lumbar Spine Without Contrast Exam date and time: 05/20/2021 1:24 AM Age: 70 years old Clinical indication: Injury or trauma; Blunt trauma (contusions or hematomas); Patient HX: Fall out of wheelchair forty five minutes prior to er arrival. No loc. C/O head, neck, and back pain. History of multiple falls. TECHNIQUE: Imaging protocol: Computed tomography images of the lumbar spine without contrast. Radiation optimization: All CT scans at this facility use at least one of these dose optimization techniques: automated exposure control; mA and/or kV adjustment per patient size (includes targeted exams where dose is matched to clinical indication); or iterative reconstruction. COMPARISON: CT lumbar spine wo con* [id number] 05/06/2021 4:23 PM RADIATION DOSE METRICS: Total DLP (mGy-cm): 1862.75 FINDINGS: Vertebrae: There is normal vertebral body alignment. There are normal vertebral body heights. No fracture. Discs/Spinal canal/Neural foramina: Severe intervertebral disc space narrowing at L2-L3, L3-L4 and L5-S1. Severe facet arthritis L2-S1. Vasculature: Mild atherosclerotic disease of the aorta without aneurysm. Soft tissues: Unremarkable. CT/CT lumbar spine wo con* [id number] IMPRESSION: 1. No fracture. 2. Severe intervertebral disc space narrowing at L2-L3, L3-L4 and L5-S1. 3. Severe facet arthritis L2-S1. 4. Mild atherosclerotic disease of the aorta without aneurysm. Radiation Dose CTDIVOL = (mGy): DLP = 1862.75 (mGy-cm)
--- NOTE | 2021-05-20 01:24 | XRR_ITS ---
PROCEDURE INFORMATION: Exam: XR Right Elbow Exam date and time: 05/20/2021 1:24 AM Age: 70 years old Clinical indication: Injury or trauma; Blunt trauma (contusions or hematomas); Right; Patient HX: Fall out of wheelchair forty five minutes prior to er arrival. C/O elbow pain. TECHNIQUE: Imaging protocol: XR Right elbow. Views: 3 or more views. COMPARISON: No relevant prior studies available. FINDINGS: Bones/joints: No acute fracture or dislocation. Soft tissues: Normal. XR/XR elbow RT min 3V* [id number] IMPRESSION: No acute fracture or dislocation.
--- NOTE | 2021-05-20 01:24 | CTR_ITS ---
PROCEDURE INFORMATION: Exam: CT Thoracic Spine Without Contrast Exam date and time: 05/20/2021 1:24 AM Age: 70 years old Clinical indication: Injury or trauma; Blunt trauma (contusions or hematomas); Prior surgery; Surgery type: Gb; Patient HX: Fall out of wheelchair forty five minutes prior to er arrival. No loc. C/O head, neck, and back pain. History of multiple falls. TECHNIQUE: Imaging protocol: Computed tomography images of the thoracic spine without contrast. Radiation optimization: All CT scans at this facility use at least one of these dose optimization techniques: automated exposure control; mA and/or kV adjustment per patient size (includes targeted exams where dose is matched to clinical indication); or iterative reconstruction. COMPARISON: CT thoracic spin wo con* [id number] 05/06/2021 4:20 PM RADIATION DOSE METRICS: Total DLP (mGy-cm): 2760.89 FINDINGS: Vertebrae: There is normal vertebral body alignment. There are normal vertebral body heights. Moderate to large endplate osteophytes are present in the mid to lower thoracic spine. No fracture. Discs/Spinal canal/Neural foramina: Disc spaces are symmetric. Soft tissues: Unremarkable. CT/CT thoracic spin wo con* [id number] IMPRESSION: No fracture. Radiation Dose CTDIVOL = (mGy): DLP = 2760.89 (mGy-cm)
--- NOTE | 2021-05-20 01:24 | CTR_ITS ---
PROCEDURE INFORMATION: Exam: CT Head Without Contrast Exam date and time: 05/20/2021 1:24 AM Age: 70 years old Clinical indication: Injury or trauma; Blunt trauma (contusions or hematomas); Patient HX: Fall out of wheelchair forty five minutes prior to er arrival. No loc. C/O head, neck, and back pain. History of multiple falls. TECHNIQUE: Imaging protocol: Computed tomography of the head without contrast. Radiation optimization: All CT scans at this facility use at least one of these dose optimization techniques: automated exposure control; mA and/or kV adjustment per patient size (includes targeted exams where dose is matched to clinical indication); or iterative reconstruction. COMPARISON: CT head wo con* [id number] 03/23/2021 8:26 PM RADIATION DOSE METRICS: Total DLP (mGy-cm): 767.66 FINDINGS: Brain: No acute intracranial hemorrhage or mass effect. There is decreased attenuation in the periventricular white matter, likely from microvascular disease. No definite acute infarct by CT. Cerebral ventricles: Ventricle size is normal for age. Paranasal sinuses: Included paranasal sinuses are essentially clear. Mastoid air cells: No significant acute finding. Vasculature: Vascular calcifications in the internal carotid and vertebral basilar systems. Bones/joints: No definite acute skull fracture. CT/CT head wo con* [id number] IMPRESSION: 1. No acute intracranial hemorrhage or mass effect. 2. Changes of microvascular disease. 3. Other findings discussed above. Radiation Dose CTDIVOL = (mGy): DLP = 767.66 (mGy-cm)
--- NOTE | 2021-05-20 01:26 | W.ED.FALL ---
HPI - Fall General: Chief Complaint: Fall Stated Complaint: FALL Time Seen by Provider: 05/20/21 01:22 Source: patient and EMS Mode of arrival: EMS Limitations: no limitations History of Present Illness: HPI Narrative: 70-year-old female states she had fell out of her chair at home about 35 minutes ago. States she has had neck and back pain along with right elbow pain from her fall. She rates her pain a 5 out of 10. Denies any loss of consciousness. Denies any other injuries. Denies any lower extremity pain. Denies any worsening or improving factors. Associated symptoms-after fall: Reports neck pain; Denies abdominal pain, chest pain or headache(s) Review of Systems Const: Denies: fever(s), chills, body aches or change in appetite Eyes: Denies: blurry vision or eye discomfort ENMT: Denies: throat pain or dental pain Card: Denies: chest pain Resp: Denies: dyspnea GI: Denies: abdominal pain, nausea, vomiting or diarrhea : Denies: dysuria Musc: Reports: neck pain and back pain Skin/Breast: Denies: rash Neuro: Denies: headache(s) Psych: Denies: depression [place]/Lymph: Denies: easy bruising All/Imm: Denies: urticaria PFSH ED PFSH: Medical History Anxiety and depression CHF exacerbation Chronic knee pain Chronic low back pain COPD (chronic obstructive pulmonary disease) Oxygen dependent, 2 L at baseline Coronary artery disease COVID-14 August 2020 Fibromyalgia High risk medication use Hyperlipidemia Hypertension Hypothyroidism Immunization counseling Inflammatory arthritis Intermittent atrial fibrillation Because the patient history of frequent fall she was thought to be high risk for bleeding complications. So she is taking only the aspirin at this time. SHE HAS EASY BRUISING WELL Left renal mass Liver cirrhosis Low back pain of over 3 months duration Lung nodule Narrow complex tachycardia Osteoarthritis of knees, bilateral Poorly controlled diabetes mellitus Recurrent UTI Seronegative rheumatoid arthritis of both hands Unstable angina Urgency incontinence UTI (urinary tract infection) Surgical History History of cardiac cath History of cholecystectomy History of hysterectomy History of knee replacement History of thyroid surgery Family History Other CAD (coronary artery disease) Cancer Denies family history of Anesthesia complication Bleeding disorder Social History Smoking and tobacco status: former smoker Quit status (tobacco): has quit using tobacco Year quit tobacco: 2005 Second hand smoke exposure: No Alcohol intake: never Adopted: No Caregiver/support person: No Lives independently: No Household members: spouse Marital status: Current occupational status: retired History of recent travel: No Current gender identity: Female Physical Exam Const: COMMON NORMALS: no acute distress, patient oriented x3 and healthy appearing HENMT: COMMON NORMALS: normocephalic and atraumatic HEAD & SCALP: normocephalic and atraumatic Eye: COMMON NORMALS: Equal, round and reactive pupils present and EOMs intact bilaterally PUPIL: Yes Equal, round and reactive pupils present Neck/C-Spine: COMMON NORMALS: full ROM and supple OTHER: Tenderness along posterior neck Chest: COMMONS NORMALS: normal inspection of the chest and normal palpation of entire chest wall Resp: COMMON NORMALS: normal respiratory effort, No retractions, No use of accessory muscles and clear to auscultation bilaterally AUSCULTATION: clear to auscultation bilaterally Cardio: COMMON NORMALS: regular rate, regular rhythm and No murmurs present (Cardio) RATE: regular rate RHYTHM: regular rhythm GI: COMMON NORMALS: Normal to inspection, nondistended, normoactive bowel sounds present, Soft to palpation, non-tender and no masses PALPATION: Yes Soft to palpation Back/Pelvis: OTHER: Tenderness to mid low back Extremity: COMMON NORMALS: normal to inspection and full ROM Neuro: COMMON NORMALS: patient oriented x3, moves all extremities and no focal motor deficits Psych: COMMON NORMALS: mental status grossly normal, Normal thought process present and cooperative THOUGHT PROCESS: Normal thought process present Skin: COMMON NORMALS: no rashes or lesions noted and no wounds GENERAL SKIN EXAM: no rashes or lesions noted Course Vital Signs: Vital signs: Vital Signs Temperature 98.4 F 05/20/21 01:22 Pulse Rate 78 05/20/21 01:31 Respiratory Rate 16 05/20/21 01:31 Blood Pressure 104/52 05/20/21 01:31 Pulse Oximetry 99 05/20/21 01:31 MDM - Fall MDM Narrative: Medical decision making narrative: Patient presents here with a contusion from a fall no signs of any fractures. Patient is well-appearing here and is stable for discharge is to follow-up PCP and return if worsening. Imaging Data^: CT Head: Attestation: I personally reviewed and interpreted this imaging study as follows: Radiologist's impression: [address] [place] [address] CT Scan Report Signed Patient: Myesha Parker Unit #: [id number] : 1950 Age/Sex: 70 / F ADM Date: 05/20/21 Loc: ER Room/Bed: Attending Dr: Ordering Provider/Ordering MD: Karma Garner MD Date of Service: 05/20/21 Procedure(s): CT head wo con* [id number] Accession Number(s): [id number] Report Number: [id number] PROCEDURE INFORMATION: Exam: CT Head Without Contrast Exam date and time: 05/20/2021 1:24 AM Age: 70 years old Clinical indication: Injury or trauma; Blunt trauma (contusions or hematomas); Patient HX: Fall out of wheelchair forty five minutes prior to er arrival. No loc. C/O head, neck, and back pain. History of multiple falls. TECHNIQUE: Imaging protocol: Computed tomography of the head without contrast. Radiation optimization: All CT scans at this facility use at least one of these dose optimization techniques: automated exposure control; mA and/or kV adjustment per patient size (includes targeted exams where dose is matched to clinical indication); or iterative reconstruction. COMPARISON: CT head wo con* [id number] 03/23/2021 8:26 PM RADIATION DOSE METRICS: Total DLP (mGy-cm): 767.66 FINDINGS: Brain: No acute intracranial hemorrhage or mass effect. There is decreased attenuation in the periventricular white matter, likely from microvascular disease. No definite acute infarct by CT. Cerebral ventricles: Ventricle size is normal for age. Paranasal sinuses: Included paranasal sinuses are essentially clear. Mastoid air cells: No significant acute finding. Vasculature: Vascular calcifications in the internal carotid and vertebral basilar systems. Bones/joints: No definite acute skull fracture. CT/CT head wo con* [id number] IMPRESSION: 1. No acute intracranial hemorrhage or mass effect. 2. Changes of microvascular disease. 3. Other findings discussed above. Radiation Dose CTDIVOL = (mGy): DLP = 767.66 (mGy-cm) Dictated By: Tex Coombs MD Signed By: Tex Coombs MD Signed Date/Time: 05/20/21309 DD/ 9 ct lumbar: Radiologist's impression: [address] [address] [address] Scan Report Signed Patient: Myesha Parker Unit #: [id number] : 1950 Age/Sex: 70 / F ADM Date: 05/20/21 Loc: ER Room/Bed: Attending Dr: Ordering Provider/Ordering MD: Karma Garner MD Date of Service: 05/20/21 Procedure(s): CT lumbar spine wo con* [id number] Accession Number(s): [id number] Report Number: [id number] PROCEDURE INFORMATION: Exam: CT Lumbar Spine Without Contrast Exam date and time: 05/20/2021 1:24 AM Age: 70 years old Clinical indication: Injury or trauma; Blunt trauma (contusions or hematomas); Patient HX: Fall out of wheelchair forty five minutes prior to er arrival. No loc. C/O head, neck, and back pain. History of multiple falls. TECHNIQUE: Imaging protocol: Computed tomography images of the lumbar spine without contrast. Radiation optimization: All CT scans at this facility use at least one of these dose optimization techniques: automated exposure control; mA and/or kV adjustment per patient size (includes targeted exams where dose is matched to clinical indication); or iterative reconstruction. COMPARISON: CT lumbar spine wo con* [id number] 05/06/2021 4:23 PM RADIATION DOSE METRICS: Total DLP (mGy-cm): 1862.75 FINDINGS: Vertebrae: There is normal vertebral body alignment. There are normal vertebral body heights. No fracture. Discs/Spinal canal/Neural foramina: Severe intervertebral disc space narrowing at L2-L3, L3-L4 and L5-S1. Severe facet arthritis L2-S1. Vasculature: Mild atherosclerotic disease of the aorta without aneurysm. Soft tissues: Unremarkable. CT/CT lumbar spine wo con* [id number] IMPRESSION: 1. No fracture. 2. Severe intervertebral disc space narrowing at L2-L3, L3-L4 and L5-S1. 3. Severe facet arthritis L2-S1. 4. Mild atherosclerotic disease of the aorta without aneurysm. Radiation Dose CTDIVOL = (mGy): DLP = 1862.75 (mGy-cm) Dictated By: Nav Caruso Signed By: Nav Caruso Signed Date/Time: 05/20/21313 DD/ 1 ct c spine: Attestation: I personally reviewed and interpreted this imaging study as follows: Radiologist's impression: [facility] [place] [address] CT Scan Report Signed Patient: Myesha Parker Unit #: [id number] : 1950 Age/Sex: 70 / F ADM Date: 05/20/21 Loc: ER Room/Bed: Attending Dr: Ordering Provider/Ordering MD: Karma Garner MD Date of Service: 05/20/21 Procedure(s): CT cervical spin wo con* 53576 Accession Number(s): [id number] Report Number: [id number] PROCEDURE INFORMATION: Exam: CT Cervical Spine Without Contrast Exam date and time: 05/20/2021 1:24 AM Age: 70 years old Clinical indication: Injury or trauma; Blunt trauma; Prior surgery; Surgery type: Thyroid; Patient HX: Fall out of wheelchair forty five minutes prior to er arrival. No loc. C/O head, neck, and back pain. History of multiple falls. TECHNIQUE: Imaging protocol: Computed tomography images of the cervical spine without contrast. Radiation optimization: All CT scans at this facility use at least one of these dose optimization techniques: automated exposure control; mA and/or kV adjustment per patient size (includes targeted exams where dose is matched to clinical indication); or iterative reconstruction. COMPARISON: CT cervical spin wo con* [id number] 05/06/2021 4:16 PM RADIATION DOSE METRICS: Total DLP (mGy-cm): 1105.66 FINDINGS: Bones/joints: On axial CT images, no definite acute fracture is visible. Sagittal and coronal reconstructions show no acute fracture or subluxation. Moderate to severe degenerative disc changes and facet joint arthritis at several levels. Discs/Spinal canal/Neural foramina: No definite/significant disc herniation by CT, MRI could be more sensitive if clinically indicated. Mastoid air cells: Small amount of fluid in left mastoid air cells, similar to prior exam. No visible fracture in this region. Lungs: No significant acute finding in the upper lungs. CT/CT cervical spin wo con* [id number] IMPRESSION: 1. No definite acute fracture or subluxation by CT. 2. Other findings discussed above. Radiation Dose CTDIVOL = (mGy): DLP = 1105.66 (mGy-cm) Dictated By: Tex Coombs MD Signed By: Tex Coombs MD Signed Date/Time: 05/20/21317 DD/ 5 xr elbow: Radiologist's impression: [address] [address] XRay Report Signed Patient: Myesha Parker Unit #: [id number] : 1950 Age/Sex: 70 / F ADM Date: 05/20/21 Loc: ER Room/Bed: Attending Dr: Ordering Provider/Ordering MD: Karma Garner MD Date of Service: 05/20/21 Procedure(s): XR elbow RT min 3V* [id number] Accession Number(s): [id number] Report Number: [id number] PROCEDURE INFORMATION: Exam: XR Right Elbow Exam date and time: 05/20/2021 1:24 AM Age: 70 years old Clinical indication: Injury or trauma; Blunt trauma (contusions or hematomas); Right; Patient HX: Fall out of wheelchair forty five minutes prior to er arrival. C/O elbow pain. TECHNIQUE: Imaging protocol: XR Right elbow. Views: 3 or more views. COMPARISON: No relevant prior studies available. FINDINGS: Bones/joints: No acute fracture or dislocation. Soft tissues: Normal. XR/XR elbow RT min 3V* [id number] IMPRESSION: No acute fracture or dislocation. Dictated By: Nav Caruso Signed By: Nav Caruso Signed Date/Time: 05/20/21313 DD/ 1 ct t spine: Radiologist's impression: [facility] [address] [place] [address] CT Scan Report Signed Patient: Myesha Parker Unit #: [id number] : 1950 Age/Sex: 70 / F ADM Date: 05/20/21 Loc: ER Room/Bed: Attending Dr: Ordering Provider/Ordering MD: Karma Garner MD Date of Service: 05/20/21 Procedure(s): CT thoracic spin wo con* [id number] Accession Number(s): [id number] Report Number: [id number] PROCEDURE INFORMATION: Exam: CT Thoracic Spine Without Contrast Exam date and time: 05/20/2021 1:24 AM Age: 70 years old Clinical indication: Injury or trauma; Blunt trauma (contusions or hematomas); Prior surgery; Surgery type: Gb; Patient HX: Fall out of wheelchair forty five minutes prior to er arrival. No loc. C/O head, neck, and back pain. History of multiple falls. TECHNIQUE: Imaging protocol: Computed tomography images of the thoracic spine without contrast. Radiation optimization: All CT scans at this facility use at least one of these dose optimization techniques: automated exposure control; mA and/or kV adjustment per patient size (includes targeted exams where dose is matched to clinical indication); or iterative reconstruction. COMPARISON: CT thoracic spin wo con* [id number] 05/06/2021 4:20 PM RADIATION DOSE METRICS: Total DLP (mGy-cm): 2760.89 FINDINGS: Vertebrae: There is normal vertebral body alignment. There are normal vertebral body heights. Moderate to large endplate osteophytes are present in the mid to lower thoracic spine. No fracture. Discs/Spinal canal/Neural foramina: Disc spaces are symmetric. Soft tissues: Unremarkable. CT/CT thoracic spin wo con* [id number] IMPRESSION: No fracture. Radiation Dose CTDIVOL = (mGy): DLP = 2760.89 (mGy-cm) Dictated By: Nav Caruso Signed By: Nav Caruso Signed Date/Time: 05/20/21319 DD/ 7 Discharge Plan Discharge Patient Disposition: Home Clinical Impression: Fall Qualifiers: Encounter type: initial encounter Qualified Code(s): W19.XXXA - Unspecified fall, initial encounter Back pain Qualifiers: Back pain location: low back pain Chronicity: acute Back pain laterality: bilateral Sciatica presence: without sciatica Qualified Code(s): M54.5 - Low back pain Condition: Stable Prescriptions: No Action tizanidine 4 mg tablet 4 mg PO TID PRN (Reason: muscle spasticity) 30 Days Qty: 90 RF: 2 hydrocodone-acetaminophen 7.5-325 mg tablet 1 tab PO TID PRN (Reason: pain) 30 Days Qty: 90 RF: 0 tramadol 50 mg tablet 100 mg PO TID PRN (Reason: pain) Qty: 180 RF: 1 potassium chloride 20 mEq tablet extended release 20 meq PO BID@08,17 RF: 0 aripiprazole [Abilify] 5 mg tablet 5 mg PO DAILY@08 Qty: 30 RF: 2 duloxetine [Cymbalta] 30 mg capsule,delayed release(DR/EC) 30 mg PO DAILY@08 Qty: 30 RF: 2 Humira Pen 40 mg/0.8 mL pen injector kit 40 mg SUBCUT Q14D Qty: 2 RF: 3 folic acid 1 mg tablet 1 mg PO DAILY@08 Qty: 90 RF: 1 methotrexate sodium 2.5 mg tablet 7.5 mg PO .Q7days Qty: 15 RF: 3 prednisone 2.5 mg tablet 2.5 mg PO DAILY Qty: 90 RF: 1 sulfasalazine 500 mg tablet 500 mg PO BID@08,17 Qty: 60 RF: 3 nitroglycerin [Nitrostat] 0.4 mg tablet, sublingual 0.4 mg SUBLINGUAL Q5M PRN (Reason: Chest Pain) Qty: 30 RF: 3 furosemide 40 mg tablet 40 mg PO DAILY Qty: 90 RF: 3 amlodipine 10 mg tablet 10 mg PO DAILY@08 Qty: 90 RF: 3 atorvastatin [Lipitor] 40 mg Tablet 40 mg PO BEDTIME RF: 0 acetaminophen [Arthritis Pain Reliever] 650 mg Tablet Extended Release 650 mg PO PRN RF: 0 pyridoxine (vitamin B6) [Vitamin B-6] 100 mg Tablet 100 mg PO DAILY@08 RF: 0 cholecalciferol (vitamin D3) [Vitamin D3] 25 mcg (1,000 unit) Tablet 2,000 unit PO DAILY@08 RF: 0 albuterol sulfate 2.5 mg /3 mL (0.083 %) Solution For Nebulization 2.5 mg inhalation TID MDD SEE PHARMACY COMMENT PRN (Reason: Shortness Of Breath) RF: 0 aspirin 325 mg Tablet 325 mg PO BEDTIME@1999 RF: 0 Hold Instructions: Resume on 10/18/20. Novolin 70/30 U-100 Insulin 100 unit/mL (70-30) suspension See Rx Instructions .ROUTE .COMPLEX RF: 0 hydrocortisone 2.5 % cream See Rx Instructions .ROUTE .COMPLEX RF: 0 hydralazine 25 mg tablet 25 mg PO TID@0800,1200,1999 RF: 0 albuterol sulfate 90 mcg/actuation Hfa Aerosol Inhaler 2 puff INHALATION Q6H PRN (Reason: Shortness Of Breath) RF: 0 docusate sodium [Stool Softener] 250 mg Capsule 250 mg PO BID RF: 0 levothyroxine [Euthyrox] 175 mcg tablet 175 mcg PO DAILY RF: 0 cyanocobalamin (vitamin B-12) [Vitamin B-12] 500 mcg Tablet 500 mcg PO DAILY RF: 0 chlorpheniramine maleate [ChlorTabs] 4 mg Tablet See Rx Instructions .ROUTE .COMPLEX RF: 0 prednisolone acetate 1 % Drops,Suspension 1 drp ophthalmic (eye) PRN RF: 0 diphenhydramine HCl [Benadryl] 25 mg Capsule See Rx Instructions .ROUTE .COMPLEX RF: 0 Vitamin B-2 1 tab PO DAILY RF: 0 insulin lispro [Admelog U-100 Insulin lispro] 100 unit/mL Solution See Rx Instructions .ROUTE .COMPLEX RF: 0 metoprolol tartrate 100 mg tablet 100 mg PO Q12H RF: 0 pantoprazole [Protonix] 40 mg tablet,delayed release (DR/EC) 40 mg PO BID@,17 RF: 0 digoxin 125 mcg (0.125 mg) tablet See Rx Instructions .ROUTE .COMPLEX RF: 0 duloxetine 60 mg capsule,delayed release(DR/EC) 60 mg PO DAILY RF: 0 ferrous gluconate 324 mg (37.5 mg iron) tablet See Rx Instructions .ROUTE .COMPLEX RF: 0 buspirone 10 mg tablet 10 mg PO BID RF: 0 magnesium L-lactate 84 mg tablet extended release 84 mg PO DAILY RF: 0 Discharge Orders: Discharge ED (Routine); Ordered 05/20/21 Ordered By: Karma Garner Referrals: Ami Perez DO [Primary Care Provider] - 1-3 days Discharge Diet: Advance as tolerated Discharge Activity: Resume usual activity Patient Instructions: Back Pain (ED) Coding Level of Care Code ED Feather [employer]ting Machine Feeder for Chg Fwd Exam Comprehensive
[2021-05-20] MEDS: HYDROcodone-acetaminophen 5-325 mg Tablet 1 TAB PO (01:29)
[2021-05-20 01:31] VITALS: BP 104/52; PULSE 78; RESP 16; O2SAT 99
[2021-05-20 03:55] VITALS: BP 139/75; PULSE 85; RESP 14; O2SAT 98
[2021-05-20 03:57] VITALS: BP 139/75; PULSE 85; RESP 14; O2SAT 98
== END 2021-05-20 06:42 | disposition home or self-care (01) ==
PROVIDERS: Emergency Provider Emergency Medicine; PCP Internal Medicine
DX: M54.5 Low back pain (principal); Z79.82 Long term (current) use of aspirin; Z79.4 Long term (current) use of insulin; I11.0 Hypertensive heart disease with heart failure; I50.9 Heart failure, unspecified; J44.9 Chronic obstructive pulmonary disease, unspecified; I25.10 Atherosclerotic heart disease of native coronary artery without angina pectoris; E78.5 Hyperlipidemia, unspecified; E11.9 Type 2 diabetes mellitus without complications; Z87.891 Personal history of nicotine dependence
CPT/HCPCS: 70450; 72125; 72128; 72131; 73080; 99283

== ENCOUNTER 2021-05-27 03:27 | Emergency (ER) | payer MEDICARE, SELFPAY ==
--- NOTE | 2021-05-27 | CTR_ITS ---
PROCEDURE INFORMATION: Exam: CT Lumbar Spine Without Contrast Exam date and time: 05/27/2021 12:00 AM Age: 70 years old Clinical indication: Injury or trauma; Fall; Blunt trauma (contusions or hematomas) TECHNIQUE: Imaging protocol: Computed tomography images of the lumbar spine without contrast. Radiation optimization: All CT scans at this facility use at least one of these dose optimization techniques: automated exposure control; mA and/or kV adjustment per patient size (includes targeted exams where dose is matched to clinical indication); or iterative reconstruction. COMPARISON: CT lumbar spine wo con* [id number] 05/20/2021 2:01 AM RADIATION DOSE METRICS: Total DLP (mGy-cm): 2031.96 FINDINGS: Vertebrae: No acute fracture. Normal alignment. Discs/Spinal canal/Neural foramina: Severe loss of disc height and vacuum disc phenomenon is seen L2-L4 and at L5-S1 compatible with degenerative disc disease. Sclerosis, joint space narrowing and bone spurring is seen within the facets of the lumbar spine compatible with diffuse degenerative joint disease. Soft tissues: Unremarkable. CT/CT lumbar spine wo con* [id number] IMPRESSION: 1. There are no acute osseous findings. 2. Severe degenerative disc disease extending from L2-L4 and at L5-S1. 3. Diffuse degenerative joint disease of the lumbar facets. 4. Otherwise stable CT appearance of the lumbar spine compared with 05/20/2021. Radiation Dose CTDIVOL = (mGy): DLP = 2.96 (mGy-cm)
--- NOTE | 2021-05-27 | CTR_ITS ---
PROCEDURE INFORMATION: Exam: CT Thoracic Spine Without Contrast Exam date and time: 05/27/2021 12:00 AM Age: 70 years old Clinical indication: Injury or trauma; Fall; Blunt trauma (contusions or hematomas) TECHNIQUE: Imaging protocol: Computed tomography images of the thoracic spine without contrast. Radiation optimization: All CT scans at this facility use at least one of these dose optimization techniques: automated exposure control; mA and/or kV adjustment per patient size (includes targeted exams where dose is matched to clinical indication); or iterative reconstruction. COMPARISON: CT thoracic spin wo con* [id number] 05/20/2021 1:58 AM RADIATION DOSE METRICS: Total DLP (mGy-cm): 3046.11 FINDINGS: Vertebrae: No acute fracture. Normal alignment. Discs/Spinal canal/Neural foramina: Severe loss of disc height vacuum disc phenomenon endplate sclerosis and subcortical cystic degenerative changes are seen at the T11-T12 compatible with degenerative disc disease. The sequela of discitis cannot be entirely excluded as well. Soft tissues: Unremarkable. CT/CT thoracic spin wo con* [id number] IMPRESSION: There are no acute osseous findings. Radiation Dose CTDIVOL = (mGy): DLP = 3046.11 (mGy-cm)
[2021-05-27 03:30] VITALS: PULSE 86; RESP 21; TEMP 37.2; O2SAT 96; BMI 36.6
[2021-05-27 03:56] VITALS: BP 90/39; PULSE 65; O2SAT 96
--- NOTE | 2021-05-27 03:58 | ECG_ITS ---
[facility] Test Date: 2021-05-27 Pat Name: Myesha Parker Department: Room: Gender: Female Superintendent Sanitation: : 1950 Requested By: Yunior Lucero Order Number: [id number] Wilbur MD: Victoriano White M.D. Measurements Intervals [place] Rate: 86 P: NV: QRS: -68 QRSD: 154 T: 35 QT: 411 QTc: 492 Interpretive Statements ATRIAL FIBRILLATION WITH ABERRANT CONDUCTION OR VENTRICULAR PREMATURE COMPLEXES RIGHT BUNDLE BRANCH BLOCK [120+ ms QRS DURATION, UPRIGHT V1, 40+ ms S IN I/aVL/V4/V5/V6] LEFT ANTERIOR FASCICULAR BLOCK [QRS AXIS <= -45, QR IN I, RS IN II] POSSIBLE SEPTAL MYOCARDIAL INFARCTION , OF INDETERMINATE AGE [30 ms Q WAVE IN V1/V2] Compared to ECG 03/16/2021 05:42:23 Left-axis deviation no longer present Left ventricular hypertrophy no longer present ST (T wave) deviation no longer present Myocardial infarct finding still present Electronically Signed On 05-27-2021 21:06:32 CDT by Victoriano White M.D. [email or web address] [id number] paul
--- NOTE | 2021-05-27 03:58 | XRR_ITS ---
PROCEDURE INFORMATION: Exam: XR Pelvis Exam date and time: 05/27/2021 3:58 AM Age: 70 years old Clinical indication: Injury or trauma; Fall; Blunt trauma (contusions or hematomas); Bilateral; Hip; Additional info: L hip pain TECHNIQUE: Imaging protocol: XR pelvis. Views: 1 or 2 view. COMPARISON: CT abdomen pelvis wo con [id number] 11/02/2020 6:11 PM FINDINGS: Bones/joints: Unremarkable. No acute fracture. Soft tissues: Unremarkable. XR/XR pelvis 1-2V* [id number] IMPRESSION: No acute findings.
--- NOTE | 2021-05-27 03:58 | CTR_ITS ---
PROCEDURE INFORMATION: Exam: CT Cervical Spine Without Contrast Exam date and time: 05/27/2021 3:58 AM Age: 70 years old Clinical indication: Injury or trauma; Fall; Blunt trauma TECHNIQUE: Imaging protocol: Computed tomography images of the cervical spine without contrast. Radiation optimization: All CT scans at this facility use at least one of these dose optimization techniques: automated exposure control; mA and/or kV adjustment per patient size (includes targeted exams where dose is matched to clinical indication); or iterative reconstruction. COMPARISON: CT cervical spin wo con* [id number] 05/20/2021 1:52 AM RADIATION DOSE METRICS: Total DLP (mGy-cm): 803.07 FINDINGS: Bones/joints: No acute fracture. Discs/Spinal canal/Neural foramina: Multilevel degenerative changes including disc space narrowing osteophytes and endplate spurring. Lungs: No pneumothorax. Soft tissues: Unremarkable. CT/CT cervical spin wo con* [id number] IMPRESSION: No acute fracture. Radiation Dose CTDIVOL = (mGy): DLP = 803.07 (mGy-cm)
--- NOTE | 2021-05-27 03:58 | XRR_ITS ---
PROCEDURE INFORMATION: Exam: XR Left Hip Exam date and time: 05/27/2021 3:58 AM Age: 70 years old Clinical indication: Injury or trauma; Fall; Blunt trauma (contusions or hematomas); Left; Hip; Additional info: L hip pain TECHNIQUE: Imaging protocol: XR Left hip. Views: 2 or 3 views hip with pelvis when performed. COMPARISON: CR (PELVIS, ) 05/27/2021 4:20 AM FINDINGS: Bones/joints: Calcific densities superimposed over the greater trochanter proximal left femur possibly representing calcifications within the adjacent bursa. Soft tissues: Unremarkable. XR/XR hip LT 2-3V wo/w pel* [id number] IMPRESSION: There are no acute osseous findings.
--- NOTE | 2021-05-27 03:58 | XRR_ITS ---
PROCEDURE INFORMATION: Exam: XR Right Knee Exam date and time: 05/27/2021 3:58 AM Age: 70 years old Clinical indication: Injury or trauma; Fall; Blunt trauma; Knee; Right; Prior surgery; Surgery date: 6+ months; Additional info: Evaluate for FX TECHNIQUE: Imaging protocol: XR Right knee. Views: 1 or 2 views. COMPARISON: No relevant prior studies available. FINDINGS: Bones/joints: There is a small anterior joint effusion. Status post total right knee replacement. Soft tissues: Normal. XR/XR knee RT 1-2V 56481 IMPRESSION: There are no acute osseous findings.
--- NOTE | 2021-05-27 03:58 | CTR_ITS ---
PROCEDURE INFORMATION: Exam: CT Head Without Contrast Exam date and time: 05/27/2021 3:58 AM Age: 70 years old Clinical indication: Injury or trauma; Fall; Blunt trauma (contusions or hematomas); Injury date: Today; Additional info: Pain/fall TECHNIQUE: Imaging protocol: Computed tomography of the head without contrast. Radiation optimization: All CT scans at this facility use at least one of these dose optimization techniques: automated exposure control; mA and/or kV adjustment per patient size (includes targeted exams where dose is matched to clinical indication); or iterative reconstruction. COMPARISON: CT head wo con* [id number] 05/20/2021 1:48 AM RADIATION DOSE METRICS: Total DLP (mGy-cm): 891.66 FINDINGS: Brain: No hemorrhage. No edema, mass effect or midline shift. Periventricular and deep white matter hypodensities compatible with chronic microvascular ischemic changes. Cerebral ventricles: No ventriculomegaly. Paranasal sinuses: Visualized sinuses are unremarkable. No fluid levels. Mastoid air cells: No mastoid effusion. Bones/joints: No acute fracture. Soft tissues: Unremarkable. CT/CT head wo con* [id number] IMPRESSION: No acute intracranial abnormality. Radiation Dose CTDIVOL = (mGy): DLP = 891.66 (mGy-cm)
[2021-05-27 04:02] LABS: Basophils # 0.1 10^3/uL (0.0-0.1); Basophils % 0.6 %; Eosinophils # 0.1 10^3/uL (0.0-0.8); Eosinophils % 0.8 %; Hematocrit 26.6 % (37.0-47.0); Hemoglobin 8.5 g/dL (11.5-15.3); Lymphocytes # 2.1 10^3/uL (0.8-4.8); Lymphocytes % 24.6 %; Mean Corpuscular Hemoglobin 33.3 pg (28.0-34.0); Mean Corpuscular Volume 104.3 fl (81-99); Mean Platelet Volume 9.1 fL (7.4-10.4); Monocytes # 0.8 10^3/uL (0.2-0.9); Monocytes % 8.6 %; Neutrophils # 5.61 10^3/uL (1.8-7.7); Neutrophils % 64.6 %; Nucleated Red Blood Cells # 0.1 /100WBC; Nucleated Red Blood Cells % 0.6 %; Platelet Count 299 10^3/cmm (130-400); Red Blood Count 2.55 10^6/uL (4.1-5.3); Red Cell Distribution Width 15.3 % (12.1-15.1); White Blood Count 8.7 10^3/uL (4.0-10.0)
--- NOTE | 2021-05-27 04:04 | W.ED.GENADLT ---
HPI - General Adult General: Chief complaint: Dizziness Stated complaint: FALL/DIZZY Time Seen by Provider: 05/27/21 03:35 History of Present Illness: HPI narrative: Patient an 80-year-old female with a history of CAD, CHF, COPD, presents emergency room after an episode of fall at 130 this morning. Patient says that she was walking towards her living room when she felt very lightheaded and fell onto her couch with complaints of occipital headache, upper back pain and lower back pain. Patient was on the ground for 2 hours eventually she was able to EMS. Patient was brought to the emergency room for evaluation. Of note, yesterday night, patient reports an episode of chest pain and shortness of breath without any associated lightheadedness or shortness of breath. Of note, patient recently had medication change for her high blood pressure. On arrival patient had a blood pressure of 80/40. Onset: 2 hrs and half ago Duration:2 hrs and half Location:home Severity:moderate Review of Systems Narrative: Constitutional: No fever, no chills. HEENT: No vision changes, +occiptal head pain CV: No chest pain, no palpitations PULM: no cough, no dyspnea. GI: No abdominal pain, no N/V/D. : No dysuria MSKEL: +R knee pain, +L hip pain SKIN: No new rashes, no lesions. NEURO: No headache, no focal weakness. HEME: No visible bruises PSYCH: Normal mood BACK: +cevical/thoracic/lumbar back pain PFSH ED PFSH: Medical History Anxiety and depression CHF exacerbation Chronic knee pain Chronic low back pain COPD (chronic obstructive pulmonary disease) Oxygen dependent, 2 L at baseline Coronary artery disease COVID-14 August 2020 Fibromyalgia High risk medication use Hyperlipidemia Hypertension Hypothyroidism Immunization counseling Inflammatory arthritis Intermittent atrial fibrillation Because the patient history of frequent fall she was thought to be high risk for bleeding complications. So she is taking only the aspirin at this time. SHE HAS EASY BRUISING WELL Left renal mass Liver cirrhosis Low back pain of over 3 months duration Lung nodule Narrow complex tachycardia Osteoarthritis of knees, bilateral Poorly controlled diabetes mellitus Recurrent UTI Seronegative rheumatoid arthritis of both hands Unstable angina Urgency incontinence UTI (urinary tract infection) Surgical History History of cardiac cath History of cholecystectomy History of hysterectomy History of knee replacement History of thyroid surgery Family History Other CAD (coronary artery disease) Cancer Denies family history of Anesthesia complication Bleeding disorder Social History Smoking and tobacco status: former smoker Quit status (tobacco): has quit using tobacco Year quit tobacco: 2005 Second hand smoke exposure: No Alcohol intake: never Adopted: No Caregiver/support person: No Lives independently: No Household members: spouse Marital status: Current occupational status: retired History of recent travel: No Current gender identity: Female Female Reproductive History: Date of last menstrual period: 11/18/20 Physical Exam Narrative: EXAM NARRATIVE: Head: Atraumatic Eyes: PERRL, conjunctiva without injection ENT: Mucous membrane moist NECK: Supple, ROM intact LUNGS: LCTAB, no crackles/rhonchi CV: RRR ABDOMEN: Soft, nontender in all quadrants EXTREMITY: Normal ROM intact for the R knee, R hip, R LE neurovascular exam intact SKIN: No rash or erythema NEURO: Awake and alert, no focal motor deficits PSYCH: Normal mood and affect BACK: +tenderness to palpation diffusely throughout the spinal column, no step off, no visible or palpable fluctuance Course Vital Signs: Vital signs: Vital Signs Temperature 98.9 F 05/27/21 03:30 Pulse Rate 76 05/27/21 09:30 Respiratory Rate 21 H 05/27/21 03:30 Blood Pressure 92/52 05/27/21 09:30 Pulse Oximetry 97 05/27/21 09:30 MDM - General Adult MDM Narrative: Medical decision making narrative: Patient is a 70-year-old female who presents the emergency room with lightheadedness since 1:30 PM. On exam, patient is hemodynamically stable, with focal areas of pain along her posterior head, neck, right knee, left hip, upper back, and lower back. Imaging studies are normal today. Troponin x2 within normal limit. EKG showing Afib at HR=86. Normal axis. LAFB, RBBB, normal QRS, QT intervals. Her heart rate improved in the emergency room without any medical intervention. Patient has no complaints of lightheadedness while observed in the emergency room. On the air sampling and monitoring, patient continues to be in atrial fibrillation without any other dysrhythmia. Troponin today is consistent with baseline of 26. Patient has had 3 episodes of recurrent fall last month and therefore is not a candidate for anticoagulation for atrial fibrillation at this time. Hemoglobin noted to be 8.5 down from 10.2 on 04/20. Finding discussed with patient with recommendation for close follow up with PCP. At the present time, I do not suspect that her lightheadedness is cardiac related. However, I have discussed the patient that she has had 3 episodes of fall and therefore will benefit from cardiology evaluation outpatient for structural evaluation of the heart to determine if that affected her light-headedness. Patient agreed with plan to follow-up with cardiology outpatient Disposition: Discharge. Patient counseled regarding diagnostic impression, treatment plan. Patient given ED strict return precautions to return for continuation, worsening, or development of new symptoms. Instructed to f/u w/ PCP regarding symptoms today. Patient verbalized understanding. Lab Data: Labs: Lab Results 05/27/21 05/27/21 05/27/21 03:57 03:57 03:57 WBC 8.7 10^3/uL 10^3/ uL (4.0-10.0) RBC 2.55 10^6/uL L 10 ^6/uL (4.1-5.3) Hgb 8.5 g/dL L g/dL (11.5-15.3) Hct 26.6 % L % (37.0-47.0) MCV 104.3 fl H fl (81-99) MCH 33.3 pg pg (28.0-34.0) MCHC 32.0 g/dL g/dL (30.0-36.0) RDW 15.3 % H % (12.1-15.1) Plt Count 299 10^3/cmm 10^3 /cmm (130-400) MPV 9.1 fL fL (7.4-10.4) Neut % (Auto) 64.6 % % Lymph % (Auto) 24.6 % % [place] % (Auto) 8.6 % % Eos % (Auto) 0.8 % % Baso % (Auto) 0.6 % % Neut # (Auto) 5.61 10^3/uL 10^3 /uL (1.8-7.7) Lymph # (Auto) 2.1 10^3/uL 10^3/ uL (0.8-4.8) [place] # (Auto) 0.8 10^3/uL 10^3/ uL (0.2-0.9) Eos # (Auto) 0.1 10^3/uL 10^3/ uL (0.0-0.8) Baso # (Auto) 0.1 10^3/uL 10^3/ uL (0.0-0.1) Nucleated RBC % (a uto) 0.6 % % Nucleated RBCs # 0.1 /100WBC /100W BC Sodium 141 mmol/L mmol/L (136-145) Potassium 3.7 mmol/L mmol/L (3.5-5.1) Chloride 95 mmol/L L mmol/ L (98-107) Carbon Dioxide 34 mmol/L H mmol/ L (22-29) Anion Gap 15.7 (5-19) BUN 23 mg/dL mg/dL (8-23) Creatinine 1.4 mg/dL H mg/dL (0.5-0.9) GFR Calculation Not Reportable Glucose 187 mg/dL H mg/dL (65-115) Calculated Osmolal ity 301 mOsm/kg H mOs m/kg (285-295) Calcium 9.5 mg/dL mg/dL (8.5-10.5) Troponin T Baselin e 27 ng/L H ng/L (0-10) Digoxin 05/27/21 03:57 WBC RBC Hgb Hct MCV MCH MCHC RDW Plt Count MPV Neut % (Auto) Lymph % (Auto) [place] % (Auto) Eos % (Auto) Baso % (Auto) Neut # (Auto) Lymph # (Auto) [place] # (Auto) Eos # (Auto) Baso # (Auto) Nucleated RBC % (a uto) Nucleated RBCs # Sodium Potassium Chloride Carbon Dioxide Anion Gap BUN Creatinine GFR Calculation Glucose Calculated Osmolal ity Calcium Troponin T Baselin e Digoxin 0.7 ng/mL ng/mL (0.6-1.2) Imaging Data^: Other Imaging: Radiologist's impression: [address] [address]SBth ReportSigned Patient: Myesha Parker LUnit #: [id number]: 1950cct#:[id number]/Sex: 70 / FADM Date: 05/27/21Loc: ERRoom/Bed:Attending Dr: Ordering Provider/Ordering MD: Yunior Lucero MD Date of Service: 05/27/21 Procedure(s): XR pelvis 1-2V* [id number] Accession Number(s): [id number] Report Number: [id number] PROCEDURE INFORMATION: Exam: XR Pelvis Exam date and time: 05/27/2021 3:58 AM Age: 70 years old Clinical indication: Injury or trauma; Fall; Blunt trauma (contusions or hematomas); Bilateral; Hip; Additional info: L hip pain TECHNIQUE: Imaging protocol: XR pelvis. Views: 1 or 2 view. COMPARISON: CT abdomen pelvis wo con [id number] 11/02/2020 6:11 PM FINDINGS: Bones/joints: Unremarkable. No acute fracture. Soft tissues: Unremarkable. XR/XR pelvis 1-2V* [id number] IMPRESSION: No acute findings. Dictated By:Emigdio Colon MDSigned By:Emigdio Colon MDSigned Date/Time:05/27/2131DD/ [address] [address]HDfu ReportSigned Patient: Myesha Parker #: [id number]: 1950cct#:[id number]/Sex: 70 / FADM Date: 05/27/21Loc: ERRoom/Bed:Attending Dr: Ordering Provider/Ordering MD: Yunior Lucero MD Date of Service: 05/27/21 Procedure(s): XR knee RT 1-2V 27337 Accession Number(s): [id number] Report Number: [id number] PROCEDURE INFORMATION: Exam: XR Right Knee Exam date and time: 05/27/2021 3:58 AM Age: 70 years old Clinical indication: Injury or trauma; Fall; Blunt trauma; Knee; Right; Prior surgery; Surgery date: 6+ months; Additional info: Evaluate for FX TECHNIQUE: Imaging protocol: XR Right knee. Views: 1 or 2 views. COMPARISON: No relevant prior studies available. FINDINGS: Bones/joints: There is a small anterior joint effusion. Status post total right knee replacement. Soft tissues: Normal. XR/XR knee RT 1-2V 14107 IMPRESSION: There are no acute osseous findings. Dictated By:Emigdio Colon MDSigned By:Emigdio Colon MDSigned Date/Time:05/27/2130DD/ [address], [place] [address]NFrd ReportSigned Patient: Myesha Parker #: [id number]: 1950cct#:[id number]/Sex: 70 / FADM Date: 05/27/21Loc: [facility]/Bed:Attending Dr: Ordering Provider/Ordering MD: Yunior Lucero MD Date of Service: 05/27/21 Procedure(s): XR hip LT 2-3V wo/w pel* [id number] Accession Number(s): [id number] Report Number: [id number] PROCEDURE INFORMATION: Exam: XR Left Hip Exam date and time: 05/27/2021 3:58 AM Age: 70 years old Clinical indication: Injury or trauma; Fall; Blunt trauma (contusions or hematomas); Left; Hip; Additional info: L hip pain TECHNIQUE: Imaging protocol: XR Left hip. Views: 2 or 3 views hip with pelvis when performed. COMPARISON: CR (PELVIS, ) 05/27/2021 4:20 AM FINDINGS: Bones/joints: Calcific densities superimposed over the greater trochanter proximal left femur possibly representing calcifications within the adjacent bursa. Soft tissues: Unremarkable. XR/XR hip LT 2-3V wo/w pel* [id number] IMPRESSION: There are no acute osseous findings. Dictated By:Emigdio Colon MDSigned By:Emigdio Colon MDSigned Date/Time:05/27/2132DD/ [address], [place] [address]CH Scan ReportSigned Patient: Myesha Parker #: [id number]: [id number]#:[id number]/Sex: 70 / FADM Date: 05/27/21Loc: ERRoom/Bed:Attending Dr: Ordering Provider/Ordering MD: Yunior Lucero MD Date of Service: 05/27/21 Procedure(s): CT head wo con* [id number] Accession Number(s): [id number] Report Number: [id number] PROCEDURE INFORMATION: Exam: CT Head Without Contrast Exam date and time: 05/27/2021 3:58 AM Age: 70 years old Clinical indication: Injury or trauma; Fall; Blunt trauma (contusions or hematomas); Injury date: Today; Additional info: Pain/fall TECHNIQUE: Imaging protocol: Computed tomography of the head without contrast. Radiation optimization: All CT scans at this facility use at least one of these dose optimization techniques: automated exposure control; mA and/or kV adjustment per patient size (includes targeted exams where dose is matched to clinical indication); or iterative reconstruction. COMPARISON: CT head wo con* [id number] 05/20/2021 1:48 AM RADIATION DOSE METRICS: Total DLP (mGy-cm): 891.66 FINDINGS: Brain: No hemorrhage. No edema, mass effect or midline shift. Periventricular and deep white matter hypodensities compatible with chronic microvascular ischemic changes. Cerebral ventricles: No ventriculomegaly. Paranasal sinuses: Visualized sinuses are unremarkable. No fluid levels. Mastoid air cells: No mastoid effusion. Bones/joints: No acute fracture. Soft tissues: Unremarkable. CT/CT head wo con* [id number] IMPRESSION: No acute intracranial abnormality. Radiation Dose CTDIVOL = (mGy): DLP = 891.66 (mGy-cm) Dictated By:Stevie De Dios MDSigned By:Stevie De Dios MDSigned Date/Time:05/27/2117DD/ [address] [address]ID Scan ReportSigned Patient: Myesha Parker #: [id number]: 9Acct#:[id number]/Sex: 70 / FADM Date: 05/27/21Loc: ERRoom/Bed:Attending Dr: Ordering Provider/Ordering MD: Yunior Lucero MD Date of Service: 05/27/21 Procedure(s): CT cervical spin wo con* [id number] Accession Number(s): [id number] Report Number: [id number] PROCEDURE INFORMATION: Exam: CT Cervical Spine Without Contrast Exam date and time: 05/27/2021 3:58 AM Age: 70 years old Clinical indication: Injury or trauma; Fall; Blunt trauma TECHNIQUE: Imaging protocol: Computed tomography images of the cervical spine without contrast. Radiation optimization: All CT scans at this facility use at least one of these dose optimization techniques: automated exposure control; mA and/or kV adjustment per patient size (includes targeted exams where dose is matched to clinical indication); or iterative reconstruction. COMPARISON: CT cervical spin wo con* [id number] 05/20/2021 1:52 AM RADIATION DOSE METRICS: Total DLP (mGy-cm): 803.07 FINDINGS: Bones/joints: No acute fracture. Discs/Spinal canal/Neural foramina: Multilevel degenerative changes including disc space narrowing osteophytes and endplate spurring. Lungs: No pneumothorax. Soft tissues: Unremarkable. CT/CT cervical spin wo con* [id number] IMPRESSION: No acute fracture. Radiation Dose CTDIVOL = (mGy): DLP = 803.07 (mGy-cm) Dictated By:Stevie De Dios MDSigned By:Stevie De Dios MDSigned Date/Time:05/27/2124DD/ [address] [address]XE Scan ReportSigned Patient: Myesha Parker #: [id number]: 1950cct#:[id number]/Sex: 70 / FADM Date: 05/27/21Loc: ERRoom/Bed:Attending Dr: Ordering Provider/Ordering MD: Yunior Lucero MD Date of Service: 05/27/21 Procedure(s): CT thoracic spin wo con* [id number] Accession Number(s): [id number] Report Number: [id number] PROCEDURE INFORMATION: Exam: CT Thoracic Spine Without Contrast Exam date and time: 05/27/2021 12:00 AM Age: 70 years old Clinical indication: Injury or trauma; Fall; Blunt trauma (contusions or hematomas) TECHNIQUE: Imaging protocol: Computed tomography images of the thoracic spine without contrast. Radiation optimization: All CT scans at this facility use at least one of these dose optimization techniques: automated exposure control; mA and/or kV adjustment per patient size (includes targeted exams where dose is matched to clinical indication); or iterative reconstruction. COMPARISON: CT thoracic spin wo con* [id number] 05/20/2021 1:58 AM RADIATION DOSE METRICS: Total DLP (mGy-cm): 3046.11 FINDINGS: Vertebrae: No acute fracture. Normal alignment. Discs/Spinal canal/Neural foramina: Severe loss of disc height vacuum disc phenomenon endplate sclerosis and subcortical cystic degenerative changes are seen at the T11-T12 compatible with degenerative disc disease. The sequela of discitis cannot be entirely excluded as well. Soft tissues: Unremarkable. CT/CT thoracic spin wo con* [id number] IMPRESSION: There are no acute osseous findings. Radiation Dose CTDIVOL = (mGy): DLP = 3046.11 (mGy-cm) Dictated By:Emigdio Colon MDSigned By:Emigdio Colon MDSigned Date/Time:05/27/21628DD/ [address] [address]RN Scan ReportSigned Patient: Myesha Parkre #: [id number]: 1950cct#:[id number]/Sex: 70 / FADM Date: 05/27/21Loc: ERRoom/Bed:Attending Dr: Ordering Provider/Ordering MD: Yunior Lucero MD Date of Service: 05/27/21 Procedure(s): CT lumbar spine wo con* [id number] Accession Number(s): [id number] Report Number: [id number] PROCEDURE INFORMATION: Exam: CT Lumbar Spine Without Contrast Exam date and time: 05/27/2021 12:00 AM Age: 70 years old Clinical indication: Injury or trauma; Fall; Blunt trauma (contusions or hematomas) TECHNIQUE: Imaging protocol: Computed tomography images of the lumbar spine without contrast. Radiation optimization: All CT scans at this facility use at least one of these dose optimization techniques: automated exposure control; mA and/or kV adjustment per patient size (includes targeted exams where dose is matched to clinical indication); or iterative reconstruction. COMPARISON: CT lumbar spine wo con* [id number] 05/20/2021 2:01 AM RADIATION DOSE METRICS: Total DLP (mGy-cm): 2031.96 FINDINGS: Vertebrae: No acute fracture. Normal alignment. Discs/Spinal canal/Neural foramina: Severe loss of disc height and vacuum disc phenomenon is seen L2-L4 and at L5-S1 compatible with degenerative disc disease. Sclerosis, joint space narrowing and bone spurring is seen within the facets of the lumbar spine compatible with diffuse degenerative joint disease. Soft tissues: Unremarkable. CT/CT lumbar spine wo con* [id number] IMPRESSION: 1. There are no acute osseous findings. 2. Severe degenerative disc disease extending from L2-L4 and at L5-S1. 3. Diffuse degenerative joint disease of the lumbar facets. 4. Otherwise stable CT appearance of the lumbar spine compared with 05/20/2021. Radiation Dose CTDIVOL = (mGy): DLP = 2031.96 (mGy-cm) Dictated By:Emigdio Colon MDSigned By:Emigdio Colon MDSigned Date/Time:05/27/2136DD/ 3 Discharge Plan Discharge Patient Disposition: Home Clinical Impression: Hypotension, Anemia, Morbid obesity, Orthostatic hypotension, Falls frequently Condition: Stable Prescriptions: Discontinued hydralazine 25 mg tablet 25 mg PO .COMPLEX RF: 0 No Action tizanidine 4 mg tablet 4 mg PO TID PRN (Reason: muscle spasticity) 30 Days Qty: 90 RF: 2 hydrocodone-acetaminophen 7.5-325 mg tablet 1 tab PO TID PRN (Reason: pain) 30 Days Qty: 90 RF: 0 tramadol 50 mg tablet 100 mg PO TID PRN (Reason: pain) Qty: 180 RF: 1 potassium chloride 20 mEq tablet extended release 20 meq PO BID@08,17 RF: 0 aripiprazole [Abilify] 5 mg tablet 5 mg PO DAILY@08 Qty: 30 RF: 2 duloxetine [Cymbalta] 30 mg capsule,delayed release(DR/EC) 30 mg PO DAILY@08 Qty: 30 RF: 2 Humira Pen 40 mg/0.8 mL pen injector kit 40 mg SUBCUT Q14D Qty: 2 RF: 3 folic acid 1 mg tablet 1 mg PO DAILY@08 Qty: 90 RF: 1 methotrexate sodium 2.5 mg tablet 7.5 mg PO .Q7days Qty: 15 RF: 3 prednisone 2.5 mg tablet 2.5 mg PO DAILY Qty: 90 RF: 1 sulfasalazine 500 mg tablet 500 mg PO BID@08,17 Qty: 60 RF: 3 nitroglycerin [Nitrostat] 0.4 mg tablet, sublingual 0.4 mg SUBLINGUAL Q5M PRN (Reason: Chest Pain) Qty: 30 RF: 3 furosemide 40 mg tablet 40 mg PO DAILY Qty: 90 RF: 3 amlodipine 10 mg tablet 10 mg PO DAILY@08 Qty: 90 RF: 3 atorvastatin [Lipitor] 40 mg Tablet 40 mg PO BEDTIME RF: 0 acetaminophen [Arthritis Pain Reliever] 650 mg Tablet Extended Release 650 mg PO PRN RF: 0 pyridoxine (vitamin B6) [Vitamin B-6] 100 mg Tablet 100 mg PO DAILY@08 RF: 0 cholecalciferol (vitamin D3) [Vitamin D3] 25 mcg (1,000 unit) Tablet 2,000 unit PO DAILY@08 RF: 0 albuterol sulfate 2.5 mg /3 mL (0.083 %) Solution For Nebulization 2.5 mg inhalation TID MDD SEE PHARMACY COMMENT PRN (Reason: Shortness Of Breath) RF: 0 aspirin 325 mg Tablet 325 mg PO BEDTIME@1999 RF: 0 Hold Instructions: Resume on 10/18/20. Novolin 70/30 U-100 Insulin 100 unit/mL (70-30) suspension See Rx Instructions .ROUTE .COMPLEX RF: 0 hydrocortisone 2.5 % cream See Rx Instructions .ROUTE .COMPLEX RF: 0 albuterol sulfate 90 mcg/actuation Hfa Aerosol Inhaler 2 puff INHALATION Q6H PRN (Reason: Shortness Of Breath) RF: 0 docusate sodium [Stool Softener] 250 mg Capsule 250 mg PO BID RF: 0 levothyroxine [Euthyrox] 175 mcg tablet 175 mcg PO DAILY RF: 0 cyanocobalamin (vitamin B-12) [Vitamin B-12] 500 mcg Tablet 500 mcg PO DAILY RF: 0 chlorpheniramine maleate [ChlorTabs] 4 mg Tablet See Rx Instructions .ROUTE .COMPLEX RF: 0 prednisolone acetate 1 % Drops,Suspension 1 drp ophthalmic (eye) PRN RF: 0 diphenhydramine HCl [Benadryl] 25 mg Capsule See Rx Instructions .ROUTE .COMPLEX RF: 0 Vitamin B-2 1 tab PO DAILY RF: 0 insulin lispro [Admelog U-100 Insulin lispro] 100 unit/mL Solution See Rx Instructions .ROUTE .COMPLEX RF: 0 metoprolol tartrate 100 mg tablet 100 mg PO Q12H RF: 0 pantoprazole [Protonix] 40 mg tablet,delayed release (DR/EC) 40 mg PO BID@,17 RF: 0 digoxin 125 mcg (0.125 mg) tablet See Rx Instructions .ROUTE .COMPLEX RF: 0 duloxetine 60 mg capsule,delayed release(DR/EC) 60 mg PO DAILY RF: 0 ferrous gluconate 324 mg (37.5 mg iron) tablet See Rx Instructions .ROUTE .COMPLEX RF: 0 buspirone 10 mg tablet 10 mg PO BID RF: 0 magnesium L-lactate 84 mg tablet extended release 84 mg PO DAILY RF: 0 Discharge Orders: Discharge ED (Routine); Ordered 05/27/21 Ordered By: Kenrick Treviño Referrals: Ami Perez, [Primary Care Provider] - Discharge Diet: Usual diet Discharge Activity: Limit activity as instructed Patient Instructions: Opioid Safety Activity Restrictions/Additional Instructions: Stop hydralazine. If blood pressure still consistently below 100 systolic at home decrease amlodipine to 5 mg daily. Call your wire drawer to follow-up next week and reevaluate. Coding Level of Care Code ED Soft Mud Molder for Dougie Samson
[2021-05-27 04:17] LABS: Anion Gap 15.7 (5-19); Blood Urea Nitrogen 23 mg/dL (8-23); Calcium 9.5 mg/dL (8.5-10.5); Carbon Dioxide 34 mmol/L (22-29); Chloride 95 mmol/L (98-107); Glucose 187 mg/dL (65-115); Osmolality Calculated 301 mOsm/kg (285-295); Potassium 3.7 mmol/L (3.5-5.1); Sodium 141 mmol/L (136-145)
[2021-05-27 04:18] LABS: Creatinine Clr Calc Pharmacy 42.4991; Troponin(5th) Baseline 27 ng/L (0-10)
[2021-05-27 04:39] VITALS: BP 116/48; PULSE 90; O2SAT 98
[2021-05-27] MEDS: acetaminophen 500 mg Tablet PO (04:49)
[2021-05-27] MEDS: sodium chloride 0.9% 250 ML IV (04:49)
[2021-05-27] MEDS: sodium chloride 0.9% 500 ML 999 ML IV (06:47)
[2021-05-27 06:53] LABS: Digoxin 0.7 ng/mL (0.6-1.2)
[2021-05-27 09:30] VITALS: BP 92/52; PULSE 76; O2SAT 97
== END 2021-05-27 09:35 | disposition home or self-care (01) ==
PROVIDERS: Emergency Medicine; Emergency Provider Family Medicine; PCP Internal Medicine
DX: I95.1 Orthostatic hypotension (principal); D64.9 Anemia, unspecified; E66.01 Morbid (severe) obesity due to excess calories; R29.6 Repeated falls; Z79.82 Long term (current) use of aspirin; Z79.4 Long term (current) use of insulin; I11.0 Hypertensive heart disease with heart failure; I50.9 Heart failure, unspecified; J44.9 Chronic obstructive pulmonary disease, unspecified; I25.10 Atherosclerotic heart disease of native coronary artery without angina pectoris; E78.5 Hyperlipidemia, unspecified; E11.9 Type 2 diabetes mellitus without complications; Z87.891 Personal history of nicotine dependence
CPT/HCPCS: 70450; 72125; 72128; 72131; 72170; 73502; 73560; 80048; 80162; 84484; 85025; 93005; 96360; 99284; J7040; J7050

== ENCOUNTER 2021-06-01 00:10 | Emergency (ER) | payer MEDICARE, SELFPAY ==
[2021-06-01] VITALS (8 sets, daily range): BP systolic 118–138; BP diastolic 53–85; PULSE 62–78; RESP 12–24; O2SAT 95–100; BMI 36.6
--- NOTE | 2021-06-01 00:38 | ECG_ITS ---
[facility] Test Date: 2021-06-01 Pat Name: Myesha Parker Department: Room: Gender: Female Hims Manager: : 1950 Requested By: William Cintron Order Number: [id number] Wilbur MD: Keisha Coronel M.D. Measurements Intervals [place] Rate: 68 P: OK: QRS: -49 QRSD: 147 T: 25 QT: 440 QTc: 471 Interpretive Statements ATRIAL FIBRILLATION WITH ABERRANT CONDUCTION OR VENTRICULAR PREMATURE COMPLEXES RIGHT BUNDLE BRANCH BLOCK [120+ ms QRS DURATION, UPRIGHT V1, 40+ ms S IN I/aVL/V4/V5/V6] LEFT ANTERIOR FASCICULAR BLOCK [QRS AXIS <= -45, QR IN I, RS IN II] VOLTAGE CRITERIA FOR LVH [MEETS CRITERIA IN ONE OF: R(aVL), S(V1), R(V5), R(V5/V6)+S(V1)] Compared to ECG 05/27/2021 04:42:46 Left ventricular hypertrophy now present Myocardial infarct finding no longer present Electronically Signed On 06-01-2021 22:49:55 CDT by Keisha Coronel M.D. [id number]
--- NOTE | 2021-06-01 00:38 | XRR_ITS ---
PROCEDURE INFORMATION: Exam: XR Chest Exam date and time: 06/01/2021 12:38 AM Age: 70 years old Clinical indication: Shortness of breath; Chest pressure; Prior surgery; Surgery type: Cardiac cath; Patient HX: PT C/O of chest pain with SOB. History of afib and copd. Cellphone in image. Not repeated due to minimal obstruction of anatomy. TECHNIQUE: Imaging protocol: XR of the chest. Views: 1 view. COMPARISON: CR XR acute abdomen series [id number] 04/20/2021 9:08 PM FINDINGS: Tubes, catheters and devices: Electronic device overlying the right lower chest wall. Lungs: Unremarkable. No consolidation. Pleural spaces: Unremarkable. No pleural effusion. No pneumothorax. Heart/Mediastinum: There is mild cardiomegaly. Bones/joints: Unremarkable. XR/XR chest 1V portable [id number] IMPRESSION: Mild cardiomegaly. Radiation Dose CTDIVOL = (mGy): DLP = (mGy-cm)
[2021-06-01 03:00] LABS: Basophils % 0.6 %; Eosinophils # 0.1 10^3/uL (0.0-0.8); Eosinophils % 1.3 %; Hematocrit 25.6 % (37.0-47.0); Hemoglobin 8.3 g/dL (11.5-15.3); Lymphocytes # 1.4 10^3/uL (0.8-4.8); Lymphocytes % 26.5 %; Mean Corpuscular HGB Conc 32.4 g/dL (30.0-36.0); Mean Corpuscular Hemoglobin 33.3 pg (28.0-34.0); Mean Corpuscular Volume 102.8 fl (81-99); Mean Platelet Volume 9.5 fL (7.4-10.4); Monocytes # 0.6 10^3/uL (0.2-0.9); Monocytes % 11.9 %; Neutrophils # 3.08 10^3/uL (1.8-7.7); Neutrophils % 59.3 %; Nucleated Red Blood Cells % 0 %; Platelet Count 174 10^3/cmm (130-400); Red Blood Count 2.49 10^6/uL (4.1-5.3); Red Cell Distribution Width 14.7 % (12.1-15.1); White Blood Count 5.2 10^3/uL (4.0-10.0)
[2021-06-01 03:18] LABS: Urine Appearance Cloudy (CLEAR); Urine Color Yellow (Yellow); pH Urine 5 (5-7)
[2021-06-01 03:19] LABS: Add Urine Culture? Yes; Add Urine Microscopic? YES; Bacteria Urine 2+ /hpf; Bilirubin Urine 1+ (Negative); Blood Urine 2+ (Negative); Glucose Urine UA Norm (Normal); Ketones Urine Negative (Negative); Leukocyte Esterase Urine 2+ (Negative); Nitrate Urine Negative (Negative); Protein Urine Neg (Negative); Urobilinogen Urine Norm (Negative); WBC Urine >100 /hpf (0-5)
[2021-06-01 03:36] LABS: Troponin(5th) Baseline 26 ng/L (0-10)
[2021-06-01 03:45] LABS: Alanine Aminotransferase 18 U/L (0-33); Albumin Level 3.6 g/dL (3.5-5.2); Alkaline Phosphatase 90 IU/L (35-105); Anion Gap 15.9 (5-19); Aspartate Amino Transferase 22 U/L (0-32); Blood Urea Nitrogen 25 mg/dL (8-23); Calcium 9.2 mg/dL (8.5-10.5); Carbon Dioxide 32 mmol/L (22-29); Chloride 95 mmol/L (98-107); Globulin 2.6 g/dL (1.3-4.6); Glucose 218 mg/dL (65-115); Lipase 26 U/L (13-60); Magnesium 1.3 mg/dL (1.7-2.3); NT Pro B Type Natriuretic Pept 247 pg/mL (0-125); Osmolality Calculated 299 mOsm/kg (285-295); Potassium 3.9 mmol/L (3.5-5.1); Sodium 139 mmol/L (136-145); Total Bilirubin 0.3 mg/dL (0.15-1.2); Total Protein 6.2 g/dL (6.6-8.7)
--- NOTE | 2021-06-01 04:20 | W.ED.GENADLT ---
HPI - General Adult General: Chief complaint: Chest Pain Stated complaint: Chest Pain Time Seen by Provider: 06/01/21 02:39 History of Present Illness: HPI narrative: CC: Chest Pain HPI: This is a [70] yo patient hx of CAD, COPD, CHF, chronic Afib (not on AC due to fall risks) presenting to the ED with complaints of chest pain x 1 day (since 6am). Denies chest pain sharp and different from her usual chest pain. Denies any N/V/diaphoresis. Patient denies any cough, runny nose, sore throat, fever/chills. Patient had no diaphoresis, nausea/vomiting. Reports the pain is not worse with exertion. Chest pain is not associated with dyspnea, palpitation or lightheadedness. Patient has no pleuritic chest pain, hemopytosis, lower extremity swelling, history of VTE in the past, recent immobilization or recent travel. Onset: 1 day ago Duration: ongoing for the last 1 days Location: home Severity: moderate Review of Systems Narrative: Constitutional: No fever, no chills. HEENT: No vision changes, no sore throat. CV: +chest pain, no palpitations. PULM: No cough, no dyspnea. GI: No abdominal pain, no N/V/D. : No dysuria, no frequency, no hematuria. MSKEL: No arthralgias, no edema. SKIN: No new rashes, no lesions. NEURO: No headache, no focal weakness. HEME: No easy bleeding or bruising. PSYCH: No change in mood or affect. [facility] PFSH: Medical History Anxiety and depression CHF exacerbation Chronic knee pain Chronic low back pain COPD (chronic obstructive pulmonary disease) Oxygen dependent, 2 L at baseline Coronary artery disease COVID-14 August 2020 Fibromyalgia High risk medication use Hyperlipidemia Hypertension Hypothyroidism Immunization counseling Inflammatory arthritis Intermittent atrial fibrillation Because the patient history of frequent fall she was thought to be high risk for bleeding complications. So she is taking only the aspirin at this time. SHE HAS EASY BRUISING WELL Left renal mass Liver cirrhosis Low back pain of over 3 months duration Lung nodule Narrow complex tachycardia Osteoarthritis of knees, bilateral Poorly controlled diabetes mellitus Recurrent UTI Seronegative rheumatoid arthritis of both hands Unstable angina Urgency incontinence UTI (urinary tract infection) Surgical History History of cardiac cath History of cholecystectomy History of hysterectomy History of knee replacement History of thyroid surgery Family History Other CAD (coronary artery disease) Cancer Denies family history of Anesthesia complication Bleeding disorder Social History Smoking and tobacco status: former smoker Quit status (tobacco): has quit using tobacco Year quit tobacco: 2005 Second hand smoke exposure: No Alcohol intake: never Adopted: No Caregiver/support person: No Lives independently: No Household members: spouse Marital status: Current occupational status: retired History of recent travel: No Current gender identity: Female Female Reproductive History: Date of last menstrual period: 11/18/20 Physical Exam Narrative: EXAM NARRATIVE: Head: Atraumatic, normocephalic Eyes: PERRL, EOMI, conjunctiva without injection ENT: Throat without erythema, lesions or exudate, MMM NECK: Supple, trachea midline, no JVD LUNGS: LCTA CV: RRR, S1,S2, no murmurs, rubs, gallops. 2+ peripheral pulses in UEs ABDOMEN: Soft, nontender, nondistended, BS x4, no rigidity, no guarding, no rebound EXTREMITY: Normal ROM, no pitting edema, no calf tenderness to palpation SKIN: No rash or erythema NEURO: Awake and alert. No focal motor deficits. PSYCH: Normal mood and affect. Course Vital Signs: Vital signs: Vital Signs Pulse Rate 63 06/01/21 06:41 Respiratory Rate 18 06/01/21 06:41 Blood Pressure 130/85 06/01/21 06:41 Pulse Oximetry 95 06/01/21 06:41 MDM - General Adult MDM Narrative: Medical decision making narrative: [70]yo patient w/ hx afib, CAD, CHF, COPD to the ED With acute substernal chest pain X 1 day. Currently mild chest pain. Given History And Exam today I will order two troponins. Today, I have no suspicion for pneumothorax, pneumonia, pulmonary embolus, tamponade, aortic dissection or other emergent problem as a cause for this presentation. ECG did not show any signs of acute STEMI. Workup: ECG, CXR, CBC, BMP, Troponin x 2 Workup including EKG and tropnin x 2 similar to prior evaluation. I performed shared decision-making with patient regarding admission versus discharge. Given that patient has had close cardiology follow-up, similar presentation of chest pain compared to before and, and minimal troponin elevation, is unlikely to be ACS. However, I have offered patient admission, patient declined at this time. Perform prefers to be discharged. Patient understands to return for any worsening symptoms or complications. I have reiterated on multiple occasions that the patient needs to follow-up with Dr. Coronel for further evaluation of her chest pain frequently within the next 48 hours. Patient agrees with plan. I have given patient strict return precaution for any signs of worsening pain, fever/chills, nausea/vomiting, intractable chest pain, shortness breath, or new concerning complaints. Patient is noted to have CYNTHIA today with Cr. of 1.5. She received 500c of NS. Denies any urinary symptoms. I discussed this with patient and instructed to follow up with PCP in the next 48 hrs for further management. Doubt ACS/PE or other emergent causes of chest pain. No suspicion for aortic dissection given no widened mediastinum, 2+ upper extremity pulses, or tearing pain. No suspicion for PE given no pleuritic chest pain, recent immobilization or surgery hemoptysis, or other VTE risk factors. EKG is non-ischemic. XR normal. I have given patient follow up with our manager rn case to be seen by our outpatient Cardiology for chest pain. Patient aware of a call from our manager rn case to schedule for appointment(s) and verbalizes understanding of the importance of following up. Disposition: Discharge. Patient counseled regarding diagnostic impression, treatment plan. Patient given ED strict return precautions to return for continuation, worsening, or development of new symptoms. Instructed to f/u w/ Dr. Coronel regarding symptoms today. Patient verbalized understanding. Lab Data: Labs: Lab Results 06/01/21 06/01/21 06/01/21 02:15 02:55 02:55 WBC 5.2 10^3/uL 10^3/ uL (4.0-10.0) RBC 2.49 10^6/uL L 10 ^6/uL (4.1-5.3) Hgb 8.3 g/dL L g/dL (11.5-15.3) Hct 25.6 % L % (37.0-47.0) MCV 102.8 fl H fl (81-99) MCH 33.3 pg pg (28.0-34.0) MCHC 32.4 g/dL g/dL (30.0-36.0) RDW 14.7 % % (12.1-15.1) Plt Count 174 10^3/cmm 10^3 /cmm (130-400) MPV 9.5 fL fL (7.4-10.4) Neut % (Auto) 59.3 % % Lymph % (Auto) 26.5 % % [place] % (Auto) 11.9 % % Eos % (Auto) 1.3 % % Baso % (Auto) 0.6 % % Neut # (Auto) 3.08 10^3/uL 10^3 /uL (1.8-7.7) Lymph # (Auto) 1.4 10^3/uL 10^3/ uL (0.8-4.8) [place] # (Auto) 0.6 10^3/uL 10^3/ uL (0.2-0.9) Eos # (Auto) 0.1 10^3/uL 10^3/ uL (0.0-0.8) Baso # (Auto) 0.0 10^3/uL 10^3/ uL (0.0-0.1) Nucleated RBC % (a uto) 0 % % Nucleated RBCs # 0.0 /100WBC /100W BC Sodium 139 mmol/L mmol/L (136-145) Potassium 3.9 mmol/L mmol/L (3.5-5.1) Chloride 95 mmol/L L mmol/ L (98-107) Carbon Dioxide 32 mmol/L H mmol/ L (22-29) Anion Gap 15.9 (5-19) BUN 25 mg/dL H mg/dL (8-23) Creatinine 1.5 mg/dL H mg/dL (0.5-0.9) GFR Calculation Not Reportable Glucose 218 mg/dL H mg/dL (65-115) Calculated Osmolal ity 299 mOsm/kg H mOs m/kg (285-295) Calcium 9.2 mg/dL mg/dL (8.5-10.5) Magnesium 1.3 mg/dL L mg/dL (1.7-2.3) Total Bilirubin 0.3 mg/dL mg/dL (0.15-1.2) AST 22 U/L U/L (0-32) ALT 18 U/L U/L (0-33) Alkaline Phosphata se 90 IU/L IU/L (35-105) Troponin T Baselin e Troponin T 120 Min [place] Troponin T NT-Pro-B Natriuret Pep 247 pg/mL H pg/mL (0-125) Total Protein 6.2 g/dL L g/dL (6.6-8.7) Albumin 3.6 g/dL g/dL (3.5-5.2) Globulin 2.6 g/dL g/dL (1.3-4.6) Lipase 26 U/L U/L (13-60) Urine Color Yellow (Yellow) Urine Appearance Cloudy (CLEAR) Urine pH 5 (5-7) Ur Specific Gravit y 1.020 (1.005-1.030) Urine Protein Neg (Negative) Urine Glucose (UA) Norm (Normal) Urine Ketones Negative (Negative) Urine Blood 2+ H (Negative) Urine Nitrate Negative (Negative) Urine Bilirubin 1+ H (Negative) Urine Urobilinogen Norm mg/dL mg/dL (Negative) Ur Leukocyte Dorota ase 2+ H (Negative) Urine RBC 5-10 /hpf H /hpf (0-2) Urine WBC >100 /hpf H /hpf (0-5) Ur Squamous Epith Cells 10-15 /hpf H /hpf (0-5) Amorphous Sediment Not Reportable Urine Bacteria 2+ /hpf H /hpf (NONE) 06/01/21 06/01/21 02:55 04:55 WBC RBC Hgb Hct MCV MCH MCHC RDW Plt Count MPV Neut % (Auto) Lymph % (Auto) [place] % (Auto) Eos % (Auto) Baso % (Auto) Neut # (Auto) Lymph # (Auto) [place] # (Auto) Eos # (Auto) Baso # (Auto) Nucleated RBC % (a uto) Nucleated RBCs # Sodium Potassium Chloride Carbon Dioxide Anion Gap BUN Creatinine GFR Calculation Glucose Calculated Osmolal ity Calcium Magnesium Total Bilirubin AST ALT Alkaline Phosphata se Troponin T Baselin e 26 ng/L H ng/L (0-10) Troponin T 120 Min [place] 25.07 ng/L H ng/L (0-10) Delta Troponin T -0.93 ABS# L ABS# (0-10) NT-Pro-B Natriuret Pep Total Protein Albumin Globulin Lipase Urine Color Urine Appearance Urine pH Ur Specific Gravit y Urine Protein Urine Glucose (UA) Urine Ketones Urine Blood Urine Nitrate Urine Bilirubin Urine Urobilinogen Ur Leukocyte Dorota ase Urine RBC Urine WBC Ur Squamous Epith Cells Amorphous Sediment Urine Bacteria Imaging Data^: Other Imaging: Radiologist's impression: [address] [id number] ReportSigned Patient: Myesha Parker #: [id number]: [id number]#:[id number]/Sex: 70 / FADM Date: 06/01/21Loc: ERRoom/Bed:Attending Dr: Ordering Provider/Ordering MD: William Quan NP Date of Service: 06/01/21 Procedure(s): XR chest 1V portable [id number] Accession Number(s): [id number] Report Number: [id number] PROCEDURE INFORMATION: Exam: XR Chest Exam date and time: 06/01/2021 12:38 AM Age: 70 years old Clinical indication: Shortness of breath; Chest pressure; Prior surgery; Surgery type: Cardiac cath; Patient HX: PT C/O of chest pain with SOB. History of afib and copd. Cellphone in image. Not repeated due to minimal obstruction of anatomy. TECHNIQUE: Imaging protocol: XR of the chest. Views: 1 view. COMPARISON: CR XR acute abdomen series [id number] 04/20/2021 9:08 PM FINDINGS: Tubes, catheters and devices: Electronic device overlying the right lower chest wall. Lungs: Unremarkable. No consolidation. Pleural spaces: Unremarkable. No pleural effusion. No pneumothorax. Heart/Mediastinum: There is mild cardiomegaly. Bones/joints: Unremarkable. XR/XR chest 1V portable [id number] IMPRESSION: Mild cardiomegaly. Radiation Dose CTDIVOL = (mGy): DLP = (mGy-cm) Dictated By:Carmen Caruso By:Carmen Caruso Date/Time:06/01/21 0422DD/ 0038 Discharge Plan Discharge Patient Disposition: Home Clinical Impression: Chest pain, Acute kidney injury Condition: Stable Prescriptions: No Action tizanidine 4 mg tablet 4 mg PO TID PRN (Reason: muscle spasticity) 30 Days Qty: 90 RF: 2 hydrocodone-acetaminophen 7.5-325 mg tablet 1 tab PO TID PRN (Reason: pain) 30 Days Qty: 90 RF: 0 tramadol 50 mg tablet 100 mg PO TID PRN (Reason: pain) Qty: 180 RF: 1 potassium chloride 20 mEq tablet extended release 20 meq PO BID@08,17 RF: 0 aripiprazole [Abilify] 5 mg tablet 5 mg PO DAILY@08 Qty: 30 RF: 2 duloxetine [Cymbalta] 30 mg capsule,delayed release(DR/EC) 30 mg PO DAILY@08 Qty: 30 RF: 2 Humira Pen 40 mg/0.8 mL pen injector kit 40 mg SUBCUT Q14D Qty: 2 RF: 3 folic acid 1 mg tablet 1 mg PO DAILY@08 Qty: 90 RF: 1 methotrexate sodium 2.5 mg tablet 7.5 mg PO .Q7days Qty: 15 RF: 3 prednisone 2.5 mg tablet 2.5 mg PO DAILY Qty: 90 RF: 1 sulfasalazine 500 mg tablet 500 mg PO BID@08,17 Qty: 60 RF: 3 nitroglycerin [Nitrostat] 0.4 mg tablet, sublingual 0.4 mg SUBLINGUAL Q5M PRN (Reason: Chest Pain) Qty: 30 RF: 3 furosemide 40 mg tablet 40 mg PO DAILY Qty: 90 RF: 3 amlodipine 10 mg tablet 5 mg PO DAILY RF: 0 atorvastatin [Lipitor] 40 mg Tablet 40 mg PO BEDTIME RF: 0 acetaminophen [Arthritis Pain Reliever] 650 mg Tablet Extended Release 650 mg PO PRN RF: 0 pyridoxine (vitamin B6) [Vitamin B-6] 100 mg Tablet 100 mg PO DAILY@08 RF: 0 cholecalciferol (vitamin D3) [Vitamin D3] 25 mcg (1,000 unit) Tablet 2,000 unit PO DAILY@08 RF: 0 albuterol sulfate 2.5 mg /3 mL (0.083 %) Solution For Nebulization 2.5 mg inhalation TID MDD SEE PHARMACY COMMENT PRN (Reason: Shortness Of Breath) RF: 0 aspirin 325 mg Tablet 325 mg PO BEDTIME@1999 RF: 0 Hold Instructions: Resume on 10/18/20. Novolin 70/30 U-100 Insulin 100 unit/mL (70-30) suspension See Rx Instructions .ROUTE .COMPLEX RF: 0 hydrocortisone 2.5 % cream See Rx Instructions .ROUTE .COMPLEX RF: 0 albuterol sulfate 90 mcg/actuation Hfa Aerosol Inhaler 2 puff INHALATION Q6H PRN (Reason: Shortness Of Breath) RF: 0 docusate sodium [Stool Softener] 250 mg Capsule 250 mg PO BID RF: 0 levothyroxine [Euthyrox] 175 mcg tablet 175 mcg PO DAILY RF: 0 cyanocobalamin (vitamin B-12) [Vitamin B-12] 500 mcg Tablet 500 mcg PO DAILY RF: 0 chlorpheniramine maleate [ChlorTabs] 4 mg Tablet See Rx Instructions .ROUTE .COMPLEX RF: 0 prednisolone acetate 1 % Drops,Suspension 1 drp ophthalmic (eye) PRN RF: 0 diphenhydramine HCl [Benadryl] 25 mg Capsule See Rx Instructions .ROUTE .COMPLEX RF: 0 Vitamin B-2 1 tab PO DAILY RF: 0 insulin lispro [Admelog U-100 Insulin lispro] 100 unit/mL Solution See Rx Instructions .ROUTE .COMPLEX RF: 0 metoprolol tartrate 100 mg tablet 100 mg PO Q12H RF: 0 pantoprazole [Protonix] 40 mg tablet,delayed release (DR/EC) 40 mg PO BID@08,17 RF: 0 digoxin 125 mcg (0.125 mg) tablet See Rx Instructions .ROUTE .COMPLEX RF: 0 duloxetine 60 mg capsule,delayed release(DR/EC) 60 mg PO DAILY RF: 0 ferrous gluconate 324 mg (37.5 mg iron) tablet See Rx Instructions .ROUTE .COMPLEX RF: 0 buspirone 10 mg tablet 10 mg PO BID RF: 0 magnesium L-lactate 84 mg tablet extended release 84 mg PO DAILY RF: 0 Discharge Orders: Discharge ED (Routine); Ordered 06/01/21 Ordered By: Yunior Lucero Discharge Diet: Advance as tolerated Discharge Activity: Resume usual activity Patient Instructions: Chest Pain (ED) Activity Restrictions/Additional Instructions: Our manager rn case will have you follow-up with Cardiology in the next few days. You would be expected to have a phone call with our manager rn case who will put you on the schedule. Do not hesitate to come back to the emergency room. Come back if you have any worsening chest pain, shortness of breath, light-headedness, fever/chills, nausea/vomiting, or any new concerning complaints. Coding Level of Care Code ED Reformatory Attendant for Dougie Samson
[2021-06-01 05:25] LABS: Troponin 5 2HR 25.07 ng/L (0-10)
[2021-06-01 05:26] LABS: Troponin 5 2HR Delta -0.93 ABS# (0-10)
[2021-06-01] MEDS: sodium chloride 0.9% 500 ML 999 ML IV (05:53)
--- NOTE | 2021-06-01 12:28 | DCPLANNER ---
records manager had message to schedule a follow up appointment for patient with [facility]. records manager called [facility], spoke with Jasmina, gave clinic patients information. A follow up appointment was scheduled for Thursday, June 03, 2021 at 9:15 with MECHANICAL SYSTEM TECHNICIAN, Shannan White. records manager called patient at phone number [phone] and [phone] was unable to speak with patient at this time, a voicemail was left for patient regarding appointment information.
--- NOTE | 2021-07-07 15:13 | DCPLANNER ---
Patient had a follow up appointment for patient with [facility] with [facility] - patient did attend appointment.
== END 2021-06-01 06:30 | disposition home or self-care (01) ==
PROVIDERS: Nurse Practitioner Family; Emergency Provider Emergency Medicine
DX: R07.9 Chest pain, unspecified (principal); N17.9 Acute kidney failure, unspecified; Z79.4 Long term (current) use of insulin; I11.0 Hypertensive heart disease with heart failure; I50.9 Heart failure, unspecified; J44.9 Chronic obstructive pulmonary disease, unspecified; I25.10 Atherosclerotic heart disease of native coronary artery without angina pectoris; E78.5 Hyperlipidemia, unspecified; I48.91 Unspecified atrial fibrillation; E11.9 Type 2 diabetes mellitus without complications; Z87.891 Personal history of nicotine dependence
CPT/HCPCS: 71045; 80053; 81001; 83690; 83735; 83880; 84484; 85025; 87077; 87086; 87186; 93005; 99283; J7040

== ENCOUNTER 2021-06-05 00:27 | Emergency (ER) | payer MEDICARE, SELFPAY ==
[2021-06-05] VITALS (20 sets, daily range): BP systolic 114–158; BP diastolic 71–111; PULSE 84–111; RESP 11–27; TEMP 35.9; O2SAT 96–99; BMI 30.7
--- NOTE | 2021-06-05 00:46 | XRR_ITS ---
PROCEDURE INFORMATION: Exam: XR Chest Exam date and time: 06/05/2021 12:46 AM Age: 70 years old Clinical indication: Pain; Chest pressure; Additional info: Cp TECHNIQUE: Imaging protocol: XR of the chest. Views: 1 view. COMPARISON: CR (CHEST, ) 06/01/2021 2:27 AM FINDINGS: Lungs: Unremarkable. No consolidation. Pleural spaces: Unremarkable. No pleural effusion. No pneumothorax. Heart/Mediastinum: There is mild cardiomegaly. Bones/joints: Unremarkable. XR/XR chest 1V portable [id number] IMPRESSION: Mild cardiomegaly. Radiation Dose CTDIVOL = (mGy): DLP = (mGy-cm)
[2021-06-05] MEDS: sodium chloride 0.9% 500 ML 999 ML IV (00:51)
[2021-06-05 00:55] LABS: Basophils # 0.1 10^3/uL (0.0-0.1); Eosinophils # 0.1 10^3/uL (0.0-0.8); Eosinophils % 1.3 %; Hematocrit 33.9 % (37.0-47.0); Hemoglobin 10.8 g/dL (11.5-15.3); Lymphocytes # 1.4 10^3/uL (0.8-4.8); Lymphocytes % 20.7 %; Mean Corpuscular HGB Conc 31.9 g/dL (30.0-36.0); Mean Corpuscular Hemoglobin 32.5 pg (28.0-34.0); Mean Corpuscular Volume 102.1 fl (81-99); Mean Platelet Volume 9.5 fL (7.4-10.4); Monocytes # 0.7 10^3/uL (0.2-0.9); Monocytes % 10.5 %; Neutrophils # 4.41 10^3/uL (1.8-7.7); Neutrophils % 66.1 %; Nucleated Red Blood Cells % 0 %; Platelet Count 254 10^3/cmm (130-400); Red Blood Count 3.32 10^6/uL (4.1-5.3); Red Cell Distribution Width 14.3 % (12.1-15.1); White Blood Count 6.7 10^3/uL (4.0-10.0)
[2021-06-05] MEDS: ondansetron 2 mg/ML SDV 2 mL 4 MG IVP (01:00)
[2021-06-05] MEDS: lidocaine 2% viscous 15 ML, aluminum-mag hydrox-simethicon 30 ML, sucralfate oral liq 1 GM PO (01:01)
[2021-06-05 01:06] LABS: INR 0.97 (0.8-1.2); Partial Thromboplastin Time 24.3 SECONDS (23.9-36.7)
[2021-06-05 01:11] LABS: Glucose Point of Care 324 mg/dL (70-110)
[2021-06-05 01:24] LABS: Alanine Aminotransferase 21 U/L (0-33); Albumin Level 4.1 g/dL (3.5-5.2); Alkaline Phosphatase 103 IU/L (35-105); Blood Urea Nitrogen 18 mg/dL (8-23); Carbon Dioxide 28 mmol/L (22-29); Creatine Phosphokinase 32 U/L (26-192); Globulin 2.9 g/dL (1.3-4.6); Lipase 29 U/L (13-60); Sodium 140 mmol/L (136-145); Total Bilirubin 0.4 mg/dL (0.15-1.2)
[2021-06-05 01:26] LABS: Troponin(5th) Baseline 23 ng/L (0-10)
--- NOTE | 2021-06-05 01:36 | W.ED.CHESTPA ---
HPI - Chest Pain General: Chief Complaint: Chest Pain Stated Complaint: cp Time Seen by Provider: 06/05/21 00:34 History of Present Illness: HPI narrative: 70-year-old lady with a history of atrial fibrillation, heart failure presents with chest discomfort, diaphoresis, nausea at home. Chest discomfort has eased, but still present. She remains nauseated and slightly diaphoretic. This seemed to happen right after dinner. They ate around 11 or 1130. She also has a history of COPD. She notes no new fevers, no worsening cough, no increased sputum production MD complaint: chest discomfort Pertinent past history: other Onset (ago): hour(s) Timing of current episode: constant Prior episodes: Yes Onset: during rest and other Pain location: substernal and epigastric Pain radiation: left arm Severity: moderate Quality: tightness and aching Relieving factors: nothing Exacerbating factors: nothing Associated symptoms: Reports abdominal pain, diaphoresis, dyspnea, leg edema and nausea; Deny fever(s), palpitations or vomiting Treatment prior to arrival: none Review of Systems Const: Reports: diaphoresis; Denies: fever(s) or chills Eyes: Denies: change in vision Card: Reports: chest pain; Denies: palpitations Resp: Reports: dyspnea GI: Reports: abdominal pain and nausea; Denies: vomiting PFSH ED PFSH: Medical History Anxiety and depression CHF exacerbation Chronic knee pain Chronic low back pain COPD (chronic obstructive pulmonary disease) Oxygen dependent, 2 L at baseline Coronary artery disease COVID-14 August 2020 Fibromyalgia High risk medication use Hyperlipidemia Hypertension Hypothyroidism Immunization counseling Inflammatory arthritis Intermittent atrial fibrillation Because the patient history of frequent fall she was thought to be high risk for bleeding complications. So she is taking only the aspirin at this time. SHE HAS EASY BRUISING WELL Left renal mass Liver cirrhosis Low back pain of over 3 months duration Lung nodule Narrow complex tachycardia Osteoarthritis of knees, bilateral Poorly controlled diabetes mellitus Recurrent UTI Seronegative rheumatoid arthritis of both hands Unstable angina Urgency incontinence UTI (urinary tract infection) Surgical History History of cardiac cath History of cholecystectomy History of hysterectomy History of knee replacement History of thyroid surgery Family History Other CAD (coronary artery disease) Cancer Denies family history of Anesthesia complication Bleeding disorder Social History Smoking and tobacco status: former smoker Quit status (tobacco): has quit using tobacco Year quit tobacco: 2005 Second hand smoke exposure: No Alcohol intake: never Adopted: No Caregiver/support person: No Lives independently: No Household members: spouse Marital status: Current occupational status: retired History of recent travel: No Current gender identity: Female Female Reproductive History: Date of last menstrual period: 11/18/20 Physical Exam Const: COMMON NORMALS: patient oriented x3 and alert GENERAL APPEARANCE: ill appearing (mildly) and frail appearing NUTRITIONAL APPEARANCE: overweight Chest: COMMONS NORMALS: normal inspection of the chest Resp: COMMON NORMALS: clear to auscultation bilaterally EFFORT & INSPECTION: Yes tachypneic and Yes uses accessory muscles AUSCULTATION: clear to auscultation bilaterally Cardio: COMMON NORMALS: regular rate and Peripheral pulses 2+ throughout RATE: regular rate RHYTHM: abnormal rhythm irregularly irregular PERIPHERAL PULSES: Peripheral pulses 2+ throughout GI: COMMON NORMALS: Normal to inspection, nondistended, normoactive bowel sounds present and Soft to palpation PALPATION: Yes Soft to palpation and Yes Tenderness to palpation present (GI) (Mild epigastric) Neuro: COMMON NORMALS: patient oriented x3 SENSORIUM/ORIENTATION: Yes alert Course Vital Signs: Vital signs: Vital Signs Temperature 96.7 F L 06/05/21 00:33 Pulse Rate 87 06/05/21 02:40 Respiratory Rate 20 H 06/05/21 02:40 Blood Pressure 130/111 06/05/21 02:40 Pulse Oximetry 99 06/05/21 02:40 MDM - Chest Pain MDM Narrative: Medical decision making narrative: Patient is feeling improved after GI cocktail here she is resting comfortably. Laboratory shows white blood cell count of 6.7. Hemoglobin is 10.8. Creatinine is 1.2. Troponin was mildly elevated, initially, but this seems her baseline. Delta 2-hour troponin is negative. With improvement in her symptoms, she will be allowed home. Lab Data: Labs: Lab Results 06/05/21 06/05/21 06/05/21 00:48 00:48 00:48 WBC 6.7 10^3/uL 10^3/ uL (4.0-10.0) RBC 3.32 10^6/uL L 10 ^6/uL (4.1-5.3) Hgb 10.8 g/dL L g/dL (11.5-15.3) Hct 33.9 % L % (37.0-47.0) MCV 102.1 fl H fl (81-99) MCH 32.5 pg pg (28.0-34.0) MCHC 31.9 g/dL g/dL (30.0-36.0) RDW 14.3 % % (12.1-15.1) Plt Count 254 10^3/cmm 10^3 /cmm (130-400) MPV 9.5 fL fL (7.4-10.4) Neut % (Auto) 66.1 % % Lymph % (Auto) 20.7 % % [place] % (Auto) 10.5 % % Eos % (Auto) 1.3 % % Baso % (Auto) 1.0 % % Neut # (Auto) 4.41 10^3/uL 10^3 /uL (1.8-7.7) Lymph # (Auto) 1.4 10^3/uL 10^3/ uL (0.8-4.8) [place] # (Auto) 0.7 10^3/uL 10^3/ uL (0.2-0.9) Eos # (Auto) 0.1 10^3/uL 10^3/ uL (0.0-0.8) Baso # (Auto) 0.1 10^3/uL 10^3/ uL (0.0-0.1) Nucleated RBC % (a uto) 0 % % Nucleated RBCs # 0.0 /100WBC /100W BC PT 13.20 SECONDS SEC ONDS (12.1-14.9) INR 0.97 (0.8-1.2) APTT 24.3 SECONDS SECO NDS (23.9-36.7) Sodium 140 mmol/L mmol/L (136-145) Potassium 3.9 mmol/L mmol/L (3.5-5.1) Chloride 94 mmol/L L mmol/ L (98-107) Carbon Dioxide 28 mmol/L mmol/L (22-29) Anion Gap 22.9 H (5-19) BUN 18 mg/dL mg/dL (8-23) Creatinine 1.2 mg/dL H mg/dL (0.5-0.9) GFR Calculation Not Reportable Glucose 297 mg/dL H mg/dL (65-115) POC Glucose Calculated Osmolal ity 303 mOsm/kg H mOs m/kg (285-295) Calcium 10.0 mg/dL mg/dL (8.5-10.5) Total Bilirubin 0.4 mg/dL mg/dL (0.15-1.2) AST 37 U/L H U/L (0-32) ALT 21 U/L U/L (0-33) Alkaline Phosphata se 103 IU/L IU/L (35-105) Creatine Kinase 32 U/L U/L (26-192) Troponin T Baselin e Troponin T 120 Min nils Delta Troponin T NT-Pro-B Natriuret Pep 419 pg/mL H pg/mL (0-125) Total Protein 7.0 g/dL g/dL (6.6-8.7) Albumin 4.1 g/dL g/dL (3.5-5.2) Globulin 2.9 g/dL g/dL (1.3-4.6) Lipase 29 U/L U/L (13-60) 06/05/21 06/05/21 06/05/21 00:48 01:09 02:32 WBC RBC Hgb Hct MCV MCH MCHC RDW Plt Count MPV Neut % (Auto) Lymph % (Auto) [place] % (Auto) Eos % (Auto) Baso % (Auto) Neut # (Auto) Lymph # (Auto) [place] # (Auto) Eos # (Auto) Baso # (Auto) Nucleated RBC % (a uto) Nucleated RBCs # PT INR APTT Sodium Potassium Chloride Carbon Dioxide Anion Gap BUN Creatinine GFR Calculation Glucose POC Glucose 324 mg/dL H mg/dL (70-110) Calculated Osmolal ity Calcium Total Bilirubin AST ALT Alkaline Phosphata se Creatine Kinase Troponin T Baselin e 23 ng/L H ng/L (0-10) Troponin T 120 Min nils 24.46 ng/L H ng/L (0-10) Delta Troponin T 1.46 ABS# ABS# (0-10) NT-Pro-B Natriuret Pep Total Protein Albumin Globulin Lipase Discharge Plan Discharge Patient Disposition: Home Clinical Impression: Esophageal spasm Chest pain Qualifiers: Chest pain type: unspecified Qualified Code(s): R07.9 - Chest pain, unspecified Condition: Stable Prescriptions: No Action tizanidine 4 mg tablet 4 mg PO TID PRN (Reason: muscle spasticity) 30 Days Qty: 90 RF: 2 hydrocodone-acetaminophen 7.5-325 mg tablet 1 tab PO TID PRN (Reason: pain) 30 Days Qty: 90 RF: 0 tramadol 50 mg tablet 100 mg PO TID PRN (Reason: pain) Qty: 180 RF: 1 potassium chloride 20 mEq tablet extended release 20 meq PO BID@08,17 RF: 0 aripiprazole [Abilify] 5 mg tablet 5 mg PO DAILY@08 Qty: 30 RF: 2 duloxetine [Cymbalta] 30 mg capsule,delayed release(DR/EC) 30 mg PO DAILY@08 Qty: 30 RF: 2 Humira Pen 40 mg/0.8 mL pen injector kit 40 mg SUBCUT Q14D Qty: 2 RF: 3 folic acid 1 mg tablet 1 mg PO DAILY@08 Qty: 90 RF: 1 methotrexate sodium 2.5 mg tablet 7.5 mg PO .Q7days Qty: 15 RF: 3 prednisone 2.5 mg tablet 2.5 mg PO DAILY Qty: 90 RF: 1 sulfasalazine 500 mg tablet 500 mg PO BID@08,17 Qty: 60 RF: 3 nitroglycerin [Nitrostat] 0.4 mg tablet, sublingual 0.4 mg SUBLINGUAL Q5M PRN (Reason: Chest Pain) Qty: 30 RF: 3 furosemide 40 mg tablet 40 mg PO DAILY Qty: 90 RF: 3 amlodipine 10 mg tablet 5 mg PO DAILY RF: 0 atorvastatin [Lipitor] 40 mg Tablet 40 mg PO BEDTIME RF: 0 acetaminophen [Arthritis Pain Reliever] 650 mg Tablet Extended Release 650 mg PO PRN RF: 0 pyridoxine (vitamin B6) [Vitamin B-6] 100 mg Tablet 100 mg PO DAILY@08 RF: 0 cholecalciferol (vitamin D3) [Vitamin D3] 25 mcg (1,000 unit) Tablet 2,000 unit PO DAILY@08 RF: 0 albuterol sulfate 2.5 mg /3 mL (0.083 %) Solution For Nebulization 2.5 mg inhalation TID MDD SEE PHARMACY COMMENT PRN (Reason: Shortness Of Breath) RF: 0 aspirin 325 mg Tablet 325 mg PO BEDTIME@1999 RF: 0 Hold Instructions: Resume on 10/18/20. Novolin 70/30 U-100 Insulin 100 unit/mL (70-30) suspension See Rx Instructions .ROUTE .COMPLEX RF: 0 hydrocortisone 2.5 % cream See Rx Instructions .ROUTE .COMPLEX RF: 0 albuterol sulfate 90 mcg/actuation Hfa Aerosol Inhaler 2 puff INHALATION Q6H PRN (Reason: Shortness Of Breath) RF: 0 docusate sodium [Stool Softener] 250 mg Capsule 250 mg PO BID RF: 0 levothyroxine [Euthyrox] 175 mcg tablet 175 mcg PO DAILY RF: 0 cyanocobalamin (vitamin B-12) [Vitamin B-12] 500 mcg Tablet 500 mcg PO DAILY RF: 0 chlorpheniramine maleate [ChlorTabs] 4 mg Tablet See Rx Instructions .ROUTE .COMPLEX RF: 0 prednisolone acetate 1 % Drops,Suspension 1 drp ophthalmic (eye) PRN RF: 0 diphenhydramine HCl [Benadryl] 25 mg Capsule See Rx Instructions .ROUTE .COMPLEX RF: 0 Vitamin B-2 1 tab PO DAILY RF: 0 insulin lispro [Admelog U-100 Insulin lispro] 100 unit/mL Solution See Rx Instructions .ROUTE .COMPLEX RF: 0 metoprolol tartrate 100 mg tablet 100 mg PO Q12H RF: 0 pantoprazole [Protonix] 40 mg tablet,delayed release (DR/EC) 40 mg PO BID@08,17 RF: 0 digoxin 125 mcg (0.125 mg) tablet See Rx Instructions .ROUTE .COMPLEX RF: 0 duloxetine 60 mg capsule,delayed release(DR/EC) 60 mg PO DAILY RF: 0 ferrous gluconate 324 mg (37.5 mg iron) tablet See Rx Instructions .ROUTE .COMPLEX RF: 0 buspirone 10 mg tablet 10 mg PO BID RF: 0 magnesium L-lactate 84 mg tablet extended release 84 mg PO DAILY RF: 0 Discharge Orders: Discharge ED (Routine); Ordered 06/05/21 Ordered By: Matty Rodríguez Referrals: Jessica Rucker APRN [Primary Care Provider] - 1-3 days Patient Instructions: Chest Pain (ED), Esophageal Spasm (ED) Activity Restrictions/Additional Instructions: Return for return of chest pain, shortness of breath, fever greater than 100, cough with sputum production, any other concerning symptoms. Coding Level of Care Code ED Associate Professor Of Media Arts for Chg Fwd Exam Detailed
[2021-06-05 01:45] LABS: Aspartate Amino Transferase 37 U/L (0-32); Chloride 94 mmol/L (98-107); Glucose 297 mg/dL (65-115); NT Pro B Type Natriuretic Pept 419 pg/mL (0-125); Osmolality Calculated 303 mOsm/kg (285-295)
[2021-06-05 01:46] LABS: Anion Gap 22.9 (5-19); Potassium 3.9 mmol/L (3.5-5.1)
[2021-06-05 03:29] LABS: Troponin 5 2HR 24.46 ng/L (0-10); Troponin 5 2HR Delta 1.46 ABS# (0-10)
== END 2021-06-05 04:16 | disposition home or self-care (01) ==
PROVIDERS: Emergency Provider Emergency Medicine; PCP Clinical Nurse Specialist Adult Health
DX: R07.9 Chest pain, unspecified (principal); K22.4 Dyskinesia of esophagus; Z79.82 Long term (current) use of aspirin; Z79.4 Long term (current) use of insulin; I11.0 Hypertensive heart disease with heart failure; I50.9 Heart failure, unspecified; J44.9 Chronic obstructive pulmonary disease, unspecified; Z99.81 Dependence on supplemental oxygen; I25.10 Atherosclerotic heart disease of native coronary artery without angina pectoris; E78.5 Hyperlipidemia, unspecified; E11.9 Type 2 diabetes mellitus without complications; Z87.891 Personal history of nicotine dependence
CPT/HCPCS: 36416; 71045; 80053; 82550; 82962; 83690; 83880; 84484; 85025; 85610; 85730; 96374; 99284; J2405; J7040

== ENCOUNTER 2021-06-07 17:47 | Observation (INO) | payer MEDICARE, SELFPAY ==
[2021-06-07] VITALS (7 sets, daily range): BP systolic 100–159; BP diastolic 54–103; PULSE 72–99; RESP 16–18; TEMP 36.8; O2SAT 95–99
--- NOTE | 2021-06-07 18:07 | XRR_ITS ---
PROCEDURE INFORMATION: Exam: XR Chest Exam date and time: 06/07/2021 6:07 PM Age: 70 years old Clinical indication: Chest wall pain; Additional info: Cp TECHNIQUE: Imaging protocol: XR of the chest. Views: 1 view. Total images: 1 COMPARISON: CR (CHEST, ) 06/05/2021 1:09 AM FINDINGS: Lungs: No visible active interstitial or alveolar airspace disease. Pleural spaces: No pleural effusion. No pneumothorax. Heart/Mediastinum: Cardiac structures and configuration with cardiomegaly and arteriosclerosis. Bones/joints: Scoliosis. Other findings: Obesity. XR/XR chest 1V portable [id number] IMPRESSION: Nonacute. Radiation Dose CTDIVOL = (mGy): DLP = (mGy-cm)
--- NOTE | 2021-06-07 20:49 | CTR_ITS ---
PROCEDURE INFORMATION: Exam: CT Head Without Contrast Exam date and time: 06/07/2021 8:49 PM Age: 70 years old Clinical indication: Patient HX: PT C/O dizziness with hypertension. Appears confused. ; Additional info: Confusion TECHNIQUE: Imaging protocol: Computed tomography of the head without contrast. Total images: 184 Radiation optimization: All CT scans at this facility use at least one of these dose optimization techniques: automated exposure control; mA and/or kV adjustment per patient size (includes targeted exams where dose is matched to clinical indication); or iterative reconstruction. COMPARISON: CT head wo con* [id number] 05/27/2021 5:21 AM RADIATION DOSE METRICS: Total DLP (mGy-cm): 783.87 FINDINGS: Brain: No evidence of active or acute intracranial pathologic process, hemorrhage, or trauma. Moderate small vessel ischemic disease with senile periventricular leukomalacia. No mass effect. No midline shift. Cerebral arteriosclerosis. Atrophic changes greater than that anticipated for patient's chronological age. No hyperdense MCA or insular ribbon sign. Cerebral ventricles: No ventriculomegaly. Paranasal sinuses: Visualized sinuses are unremarkable. No fluid levels. Mastoid air cells: Visualized mastoid air cells are well aerated. Bones/joints: Unremarkable. No acute fracture. Soft tissues: Unremarkable. CT/CT head wo con* [id number] IMPRESSION: No evidence of active or acute intracranial pathologic process, hemorrhage, or trauma. Radiation Dose CTDIVOL = (mGy): DLP = 783.87 (mGy-cm)
--- NOTE | 2021-06-07 20:49 | ED_ITS ---
HPI - Chest Pain General: Chief Complaint: Chest Pain Stated Complaint: High Blood Pressure, Clammy Time Seen by Provider: 06/07/21 20:45 History of Present Illness: HPI narrative: This patient is a 70-year-old female who presents to the emergency department complaint of dizziness. Patient states this has been ongoing for some time and is actually been seen by her PCP. Patient reportedly has had a change in her blood pressure medications. Where they have stopped her hydralazine and have cut her amlodipine in half. Patient still has issues with dizziness at times and sometimes feels cold and clammy. Patient states these are chronic conditions but they do seem not to be getting better with the medication changes. We will do medical evaluation treat as needed Pertinent past history: coronary artery disease Onset (ago): week(s) Timing of current episode: episodic Associated symptoms: Deny abdominal pain, dyspnea, fever(s), nausea, palpitations or vomiting Review of Systems General: Reports: 10 or more systems reviewed and unremarkable except in HPI and below Const: Reports: fatigue; Denies: fever(s), chills or body aches Eyes: Denies: change in vision or blurry vision ENMT: Denies: throat pain, hoarseness or mouth pain Card: Denies: chest pain, palpitations, irregular heart rhythm, edema, swelling of feet/ankles or lightheadedness Resp: Denies: dyspnea, productive cough, non-productive cough, wheezing or pain on inspiration GI: Denies: abdominal pain, nausea or vomiting : Denies: flank pain, difficulty voiding, dysuria, urinary frequency, urinary urgency or urinary hesitancy Musc: Denies: neck pain, back pain, extremity pain, extremity swelling, joint pain, joint swelling, joint redness, joint warmth or limited range of motion Skin/Breast: Denies: rash, pruritus, erythema or skin tenderness Neuro: Reports: dizziness; Denies: headache(s), numbness in extremities or weakness in extremities Psych: Denies: anxiety or depression PFS ED PFSH: Medical History Anxiety and depression CHF exacerbation Chronic knee pain Chronic low back pain COPD (chronic obstructive pulmonary disease) Oxygen dependent, 2 L at baseline Coronary artery disease COVID-14 August 2020 Fibromyalgia High risk medication use Hyperlipidemia Hypertension Hypothyroidism Immunization counseling Inflammatory arthritis Intermittent atrial fibrillation Because the patient history of frequent fall she was thought to be high risk for bleeding complications. So she is taking only the aspirin at this time. SHE HAS EASY BRUISING WELL Left renal mass Liver cirrhosis Low back pain of over 3 months duration Lung nodule Narrow complex tachycardia Osteoarthritis of knees, bilateral Poorly controlled diabetes mellitus Recurrent UTI Seronegative rheumatoid arthritis of both hands Unstable angina Urgency incontinence UTI (urinary tract infection) Surgical History History of cardiac cath History of cholecystectomy History of hysterectomy History of knee replacement History of thyroid surgery Family History Other CAD (coronary artery disease) Cancer Denies family history of Anesthesia complication Bleeding disorder Social History Smoking and tobacco status: former smoker Quit status (tobacco): has quit using tobacco Year quit tobacco: 2005 Second hand smoke exposure: No Alcohol intake: never Adopted: No Caregiver/support person: No Lives independently: No Household members: spouse Marital status: Current occupational status: retired History of recent travel: No Current gender identity: Female Female Reproductive History: Date of last menstrual period: 11/18/20 Physical Exam Const: COMMON NORMALS: no acute distress, average body habitus, patient oriented x3, no limitations, healthy appearing, alert and well nourished HENMT: COMMON NORMALS: normocephalic, atraumatic, hearing grossly normal bilaterally, external ears normal, EAC's normal, TM's normal bilaterally, Normal external nose present, Normal nasal mucous membranes and turbinates present, moist oral mucous membranes, oropharynx normal, dentition normal and gingiva normal HEAD & SCALP: normocephalic and atraumatic NOSE: Normal external nose present and Normal nasal mucous membranes and turbinates present EXTERNAL EAR: Yes external ears normal EXTERNAL AUDITORY CANAL: EAC's normal TYMPANIC MEMBRANE: TM's normal bilaterally Neck/C-Spine: COMMON NORMALS: full ROM, no lymphadenopathy, supple, no meningeal signs, no JVD, Thyroid normal and No carotid bruits THYROID: Thyroid normal Chest: COMMONS NORMALS: normal inspection of the chest, normal palpation of entire chest wall, normal inspection of the breasts and normal palpation of the breasts Breast/axilla inspection: Yes normal inspection of the breasts BREAST/AXILLA PALPATION: Yes normal palpation of the breasts Resp: COMMON NORMALS: normal respiratory effort, No retractions, No use of accessory muscles, clear to auscultation bilaterally and percussion normal AUSCULTATION: clear to auscultation bilaterally PERCUSSION: percussion normal Cardio: COMMON NORMALS: no JVD, regular rate, regular rhythm, S1 normal heart sound present, S2 normal heart sound present, No gallops present (Cardio), No clicks present (Cardio), No murmurs present (Cardio), No rub (Cardio) and Peripheral pulses 2+ throughout RATE: regular rate RHYTHM: regular rhythm HEART SOUNDS: S1 normal heart sound present and S2 normal heart sound present PERIPHERAL PULSES: Peripheral pulses 2+ throughout GI: COMMON NORMALS: Normal to inspection, nondistended, normoactive bowel sounds present, Soft to palpation, non-tender, No hepatosplenomegaly present, no masses and no bruits PALPATION: Yes Soft to palpation and Yes No hepatosplenomegaly present Back/Pelvis: COMMON NORMALS: thoracic and lumbar spine normal to inspection, no thoracic nor lumbar tenderness, thoraco-lumbar ROM normal and straight leg raise negative bilaterally Extremity: COMMON NORMALS: normal to inspection, full ROM, capillary refill normal, no joint enlargement, no clubbing, cyanosis or edema, no calf tenderness and no pedal edema Neuro: COMMON NORMALS: patient oriented x3 SENSORIUM/ORIENTATION: Yes alert MENINGEAL SIGNS: Yes no meningeal signs Course Reevaluation(s): Reevaluation #1: Patient's orthostatics performed by nursing staff. Patient had blood pressure 128 systolic while lying. Dropped to 100 standing. With symptoms. Time: 21:33 Reevaluation #2: I did discuss at length with patient and family about findings. Patient they agreed to be admitted to the hospital for further evaluation and treatment Time: 22:26 Consultations: Consultation #1: I did discuss at length with Dr. May. He agrees to admit the patient. He will see patient write additional orders Time: 22:26 Vital Signs: Vital signs: Vital Signs Temperature 98.2 F 06/07/21 18:00 Pulse Rate 72 06/07/21 21:33 Respiratory Rate 18 06/07/21 20:49 Blood Pressure 128/78 06/07/21 21:33 Pulse Oximetry 96 06/07/21 20:49 MDM - Chest Pain MDM Narrative: Medical decision making narrative: Review of patient's medical records patient has been to the emergency department 2-3 times in the past couple weeks for a similar complaints. Patient appears to be orthostatic on exam. Would also appears to have some congestive heart failure. Patient complains of fatigue and dizziness. Atypical type chest pain symptoms. Patient does have a history of COPD and does wear oxygen at home. Patient will be admitted to the hospital for further evaluation and treatment. Lab Data: Labs: Lab Results 06/07/21 06/07/21 06/07/21 21:16 21:20 21:20 WBC 7.5 10^3/uL 10^3/ uL (4.0-10.0) RBC 3.67 10^6/uL L 10 ^6/uL (4.1-5.3) Hgb 12.1 g/dL g/dL (11.5-15.3) Hct 39.5 % % (37.0-47.0) MCV 107.6 fl H fl (81-99) MCH 33.0 pg pg (28.0-34.0) MCHC 30.6 g/dL g/dL (30.0-36.0) RDW 14.3 % % (12.1-15.1) Plt Count 238 10^3/cmm 10^3 /cmm (130-400) MPV 9.4 fL fL (7.4-10.4) Neut % (Auto) 75.4 % % Lymph % (Auto) 12.5 % % [place] % (Auto) 11.1 % % Eos % (Auto) 0.1 % % Baso % (Auto) 0.5 % % Neut # (Auto) 5.61 10^3/uL 10^3 /uL (1.8-7.7) Lymph # (Auto) 0.9 10^3/uL 10^3/ uL (0.8-4.8) [place] # (Auto) 0.8 10^3/uL 10^3/ uL (0.2-0.9) Eos # (Auto) 0.0 10^3/uL 10^3/ uL (0.0-0.8) Baso # (Auto) 0.0 10^3/uL 10^3/ uL (0.0-0.1) Nucleated RBC % (a uto) 0 % % Nucleated RBCs # 0.0 /100WBC /100W BC Sodium 139 mmol/L mmol/L (136-145) Potassium 5.3 mmol/L H mmol /L (3.5-5.1) Chloride 92 mmol/L L mmol/ L (98-107) Carbon Dioxide 33 mmol/L H mmol/ L (22-29) Anion Gap 19.3 H (5-19) BUN 26 mg/dL H mg/dL (8-23) Creatinine 1.7 mg/dL H mg/dL (0.5-0.9) GFR Calculation Not Reportable Glucose 284 mg/dL H mg/dL (65-115) POC Glucose 315 mg/dL H mg/dL (70-110) Calculated Osmolal ity 303 mOsm/kg H mOs m/kg (285-295) Calcium 11.0 mg/dL H mg/d L (8.5-10.5) Total Bilirubin 0.6 mg/dL mg/dL (0.15-1.2) AST 37 U/L H U/L (0-32) ALT 23 U/L U/L (0-33) Alkaline Phosphata se 91 IU/L IU/L (35-105) Troponin T Baselin e NT-Pro-B Natriuret Pep 2014 pg/mL H pg/m L (0-125) Total Protein 7.4 g/dL g/dL (6.6-8.7) Albumin 4.1 g/dL g/dL (3.5-5.2) Globulin 3.3 g/dL g/dL (1.3-4.6) 06/07/21 21:20 WBC RBC Hgb Hct MCV MCH MCHC RDW Plt Count MPV Neut % (Auto) Lymph % (Auto) [place] % (Auto) Eos % (Auto) Baso % (Auto) Neut # (Auto) Lymph # (Auto) [place] # (Auto) Eos # (Auto) Baso # (Auto) Nucleated RBC % (a uto) Nucleated RBCs # Sodium Potassium Chloride Carbon Dioxide Anion Gap BUN Creatinine GFR Calculation Glucose POC Glucose Calculated Osmolal ity Calcium Total Bilirubin AST ALT Alkaline Phosphata se Troponin T Baselin e 33 ng/L H ng/L (0-10) NT-Pro-B Natriuret Pep Total Protein Albumin Globulin Imaging Data^: CT Head: Attestation: I personally reviewed and interpreted this imaging study as follows: Radiologist's impression: IMPRESSION: No evidence of active or acute intracranial pathologic process, hemorrhage, or trauma. Discharge Plan Discharge Patient Disposition: Placed in Observation Clinical Impression: Orthostatic hypotension, Heart failure with preserved ejection fraction, Falls frequently, Chronic atrial fibrillation, Dehydration, Hyperkalemia Coding Level of Care Code ED Culinary Instructor for g Fwd Exam Comprehensive
[2021-06-07 21:18] LABS: Glucose Point of Care 315 mg/dL (70-110)
[2021-06-07 21:36] LABS: Basophils % 0.5 %; Eosinophils % 0.1 %; Hematocrit 39.5 % (37.0-47.0); Hemoglobin 12.1 g/dL (11.5-15.3); Lymphocytes # 0.9 10^3/uL (0.8-4.8); Lymphocytes % 12.5 %; Mean Corpuscular HGB Conc 30.6 g/dL (30.0-36.0); Mean Corpuscular Volume 107.6 fl (81-99); Mean Platelet Volume 9.4 fL (7.4-10.4); Monocytes # 0.8 10^3/uL (0.2-0.9); Monocytes % 11.1 %; Neutrophils # 5.61 10^3/uL (1.8-7.7); Neutrophils % 75.4 %; Nucleated Red Blood Cells % 0 %; Platelet Count 238 10^3/cmm (130-400); Red Blood Count 3.67 10^6/uL (4.1-5.3); Red Cell Distribution Width 14.3 % (12.1-15.1); White Blood Count 7.5 10^3/uL (4.0-10.0)
[2021-06-07] MEDS: sodium chloride 0.9% 500 ML IV (21:43)
[2021-06-07 21:58] LABS: Troponin(5th) Baseline 33 ng/L (0-10)
[2021-06-07 22:06] LABS: Alanine Aminotransferase 23 U/L (0-33); Albumin Level 4.1 g/dL (3.5-5.2); Alkaline Phosphatase 91 IU/L (35-105); Anion Gap 19.3 (5-19); Aspartate Amino Transferase 37 U/L (0-32); Blood Urea Nitrogen 26 mg/dL (8-23); Carbon Dioxide 33 mmol/L (22-29); Chloride 92 mmol/L (98-107); Globulin 3.3 g/dL (1.3-4.6); Glucose 284 mg/dL (65-115); NT Pro B Type Natriuretic Pept 2014 pg/mL (0-125); Osmolality Calculated 303 mOsm/kg (285-295); Potassium 5.3 mmol/L (3.5-5.1); Sodium 139 mmol/L (136-145); Total Bilirubin 0.6 mg/dL (0.15-1.2); Total Protein 7.4 g/dL (6.6-8.7)
[2021-06-07 23:45] LABS: Troponin 5 2HR 30.07 ng/L (0-10)
[2021-06-07 23:50] LABS: Troponin 5 2HR Delta -2.93 ABS# (0-10)
--- NOTE | 2021-06-07 23:56 | PC.NURSE ---
Addendum entered by Natacha Mcneal RN 06/08/21 01:37: Patient is oriented to person and place, but not time. Original Note: Patient states that she does not have a list of her medications with her and does not know the names of what she takes. She states, I have a big basket full at home. Unable to complete med rec at this time. Patient is alert and oriented. Patient is able to ambulate with assist, but is weak. Patient's skin is cool to touch. Cap refill and oxygen saturation WNL. Patient is on 2 L NC in SR. VSS. Patient is verbal and easy to awaken, but drowsy. Patient educated to not get up without assistance. Patient oriented to room and call light.
[2021-06-08] VITALS (14 sets, daily range): BP systolic 108–158; BP diastolic 49–94; PULSE 73–91; RESP 15–27; TEMP 36.6–36.9; O2SAT 94–99
--- NOTE | 2021-06-08 00:06 | P.HP_ITS ---
Providers/Chief Complaint Admitting Physician: Mikayla May Primary Care Provider: Jessica Prajapati Chief Complaint: High Blood Pressure, Clammy History of Present Illness 70-year-old female with a past medical history significant for chronic obstructive pulmonary disease, paroxysmal atrial fibrillation, chronic diastolic heart failure, who presented to the hospital with lightheadedness and dizziness. Patient was found to be orthostatic. Patient's blood pressure was noted to be 128 with lying and dropped to systolics of 100 with standing. Patient was given IV fluids in emergency room. Has recently been seen by cardiology who has been adjusting her blood pressure medications due to hypotension. Patient was stable at the time of my evaluation. Review of Systems General: Reports: 10 or more systems reviewed and unremarkable except in HPI and below Medications/Allergies Home Medications Medication Instructions Recorded Confirmed Last Taken Type potassium chloride 20 mEq 20 meq PO BID@09/09/19 06/03/21 05/06/21 History tablet,extended release acetaminophen [Arthritis Pain 650 mg PO PRN 10/12/19 06/03/21 05/06/21 History Reliever] atorvastatin [Lipitor] 40 mg PO BEDTIME 10/12/19 06/03/21 05/05/21 History cholecalciferol (vitamin D3) 2,000 unit PO DAILY@10/12/19 06/03/21 05/06/21 History [Vitamin D3] pyridoxine (vitamin B6) [Vitamin 100 mg PO DAILY@10/12/19 06/03/21 05/06/21 History B-6] insulin lispro [Admelog U-100 See Rx Instructions .ROUTE .COMPLEX 12/31/19 06/03/21 05/05/21 History Insulin lispro] metoprolol tartrate 100 mg PO Q12H 08/07/20 06/03/21 05/06/21 History pantoprazole [Protonix] 40 mg PO BID@08/07/20 06/03/21 05/06/21 History Novolin 70/30 U-100 Insulin See Rx Instructions .ROUTE .COMPLEX 10/08/2004/1605/05/21 History albuterol sulfate 2.5 mg INHALATION TID PRN MDD SEE 10/08/20 06/03/21 Unknown History PHARMACY COMMENT aspirin 325 mg PO BEDTIME@199910/08/20 06/03/21 05/05/21 History hydrocortisone See Rx Instructions .ROUTE .COMPLEX 10/08/20 06/03/21 05/06/21 History digoxin 125 mcg (0.125 mg) tablet See Rx Instructions .ROUTE 11/10/20 06/03/21 05/06/21 History .COMPLEX tab furosemide 40 mg tablet 40 mg PO DAILY #90 tab 02/08/21 06/03/21 05/06/21 Rx nitroglycerin 0.4 mg sublingual 0.4 mg SUBLINGUAL Q5M PRN #30 tab 02/08/21 06/03/21 Unknown Rx tablet Vitamin B-2 1 tab PO DAILY 03/16/21 06/03/21 05/06/21 History albuterol sulfate 2 puff INHALATION Q6H PRN 03/16/21 06/03/21 Unknown History chlorpheniramine maleate See Rx Instructions .ROUTE .COMPLEX 03/16/21 06/03/21 05/06/21 History [ChlorTabs] cyanocobalamin (vitamin B-12) 500 mcg PO DAILY 03/16/21 06/03/21 05/06/21 History [Vitamin B-12] diphenhydramine HCl [Benadryl] See Rx Instructions .ROUTE .COMPLEX 03/16/21 06/03/21 05/05/21 History docusate sodium [Stool Softener] 250 mg PO BID 03/16/21 06/03/21 Unknown History levothyroxine [Euthyrox] 175 mcg PO DAILY 03/16/21 06/03/21 05/06/21 History prednisolone acetate 1 drp OPHTHALMIC (EYE) PRN 03/16/21 06/03/21 05/06/21 History aripiprazole 5 mg tablet 5 mg PO DAILY@08 #30 tab 04/07/21 06/03/21 05/06/21 Rx duloxetine 30 mg capsule,delayed 30 mg PO DAILY@08 #30 cap 04/07/21 06/03/21 05/06/21 Rx release hydrocodone 7.5 mg-acetaminophen 1 tab PO TID PRN 30 Days #90 tab 04/08/21 06/03/21 05/06/21 Rx 325 mg tablet tizanidine 4 mg tablet 4 mg PO TID PRN 30 Days #90 tab 04/08/21 06/03/21 1 Rx tramadol 50 mg tablet 100 mg PO TID PRN #180 tab 04/08/21 06/03/21 05/06/21 Rx adalimumab 40 mg/0.8 mL 40 mg SUBCUT Q14D #2 ea 04/25/21 06/03/21 Unknown Rx subcutaneous pen kit folic acid 1 mg tablet 1 mg PO DAILY@08 #90 tab 04/25/21 06/03/21 05/06/21 Rx methotrexate sodium 2.5 mg tablet 7.5 mg PO .Q7days #15 tab 04/25/21 06/03/21 04/30/21 Rx prednisone 2.5 mg tablet 2.5 mg PO DAILY #90 tab 04/25/21 06/03/21 05/06/21 Rx sulfasalazine 500 mg tablet 500 mg PO BID@,17 #60 tab 04/25/21 06/03/21 05/06/21 Rx buspirone 10 mg PO BID 05/06/21 06/03/21 05/06/21 History duloxetine 60 mg PO DAILY 05/06/21 06/03/21 05/06/21 History ferrous gluconate See Rx Instructions .ROUTE .COMPLEX 05/06/21 06/03/21 05/06/21 History magnesium L-lactate 84 mg PO DAILY 05/06/21 06/03/21 05/06/21 History amlodipine 10 mg tablet 5 mg PO DAILY tab 06/03/21 06/03/21 Unknown History Allergies Allergy/AdvReac Type Severity Reaction Status Date / Time adhesive tape Allergy rash Verified 06/03/21 09:36 cinnamon Allergy sinus Verified 06/03/21 09:36 codeine Allergy unknown Verified 06/03/21 09:36 cedar Allergy sinus Uncoded 06/03/21 09:36 pine Allergy sinus Uncoded 06/03/21 09:36 pork food Allergy ADR-Nausea Uncoded 06/03/21 09:36 PFSH Acute PFSH: Medical History Anxiety and depression CHF exacerbation Chronic knee pain Chronic low back pain COPD (chronic obstructive pulmonary disease) Oxygen dependent, 2 L at baseline Coronary artery disease COVID-14 August 2020 Fibromyalgia High risk medication use Hyperlipidemia Hypertension Hypothyroidism Immunization counseling Inflammatory arthritis Intermittent atrial fibrillation Because the patient history of frequent fall she was thought to be high risk for bleeding complications. So she is taking only the aspirin at this time. SHE HAS EASY BRUISING WELL Left renal mass Liver cirrhosis Low back pain of over 3 months duration Lung nodule Narrow complex tachycardia Osteoarthritis of knees, bilateral Poorly controlled diabetes mellitus Recurrent UTI Seronegative rheumatoid arthritis of both hands Unstable angina Urgency incontinence UTI (urinary tract infection) Surgical History History of cardiac cath History of cholecystectomy History of hysterectomy History of knee replacement History of thyroid surgery Family History Other CAD (coronary artery disease) Cancer Denies family history of Anesthesia complication Bleeding disorder Social History Smoking and tobacco status: former smoker Quit status (tobacco): has quit using tobacco Year quit tobacco: 2005 Second hand smoke exposure: No Alcohol intake: never Adopted: No Caregiver/support person: No Lives independently: No Household members: spouse Marital status: Current occupational status: retired History of recent travel: No Current gender identity: Female Female Reproductive History: Date of last menstrual period: 11/18/20 Vitals/I&O/Wt Last Vital Signs Temp 98 F 06/08/21 03:38 Pulse 73 06/08/21 03:38 Resp 15 06/08/21 03:38 BP 150/75 06/08/21 03:38 Pulse Ox 99 06/08/21 03:38 06/07/21 06/07/21 06/08/21 14:59 22:59 06:59 Intake Total 500 / 500 50 / 550 Balance 500 / 500 50 / 550 Weight last 48 hrs Weight 101.877 kg Weight 99.79 kg Physical Exam Narrative: EXAM NARRATIVE: Alert awake and oriented HEENT?grossly unremarkable CVS?normal sinus rhythm Chest?clear to auscultation Abdomen?soft nontender nondistended Extremity?no edema Data : 06/07/21 21:20 06/07/21 21:20 A&P Assessment and plan (1) Orthostatic hypotension: Fall precautions Holding antihypertensive medications May consider adding midodrine if persistent Given fluid resuscitation in ER Holding diuretics Status: Acute (2) Acute kidney injury: Creatinine increased to 1.7 Manzanares catheter placement Consider nephrology consultation Monitor urine output Status: Acute Attestations Medical Necessity Statement*: 2 midnight stay in the hospital for evaluation and treatment Time Spent in Patient Care: Greater than 35 minutes (>than 50% of time spent in counselling and/or direct pt care on unit) . Coding Level of Care Code Acute Phlebotomist Supervisor/Instructor for [facility]ie Samson Diagnoses Orthostatic hypotension I95.1 Acute kidney injury N17.9
--- NOTE | 2021-06-08 00:07 | ECG_ITS ---
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 Measurements Intervals [place] Rate: 72 P: -27 AL: 199 QRS: -77 QRSD: 144 T: 26 QT: 447 QTc: 489 Interpretive Statements SINUS RHYTHM WITH OCCASIONAL VENTRICULAR PREMATURE COMPLEXES RIGHT BUNDLE BRANCH BLOCK [120+ ms QRS DURATION, UPRIGHT V1, 40+ ms S IN I/aVL/V4/V5/V6] LEFT ANTERIOR FASCICULAR BLOCK [QRS AXIS <= -45, QR IN I, RS IN II] MINIMAL VOLTAGE CRITERIA FOR LVH, CONSIDER NORMAL VARIANT [MEETS CRITERIA IN ONE OF: R(aVL), S(V1), R(V5), R(V5/V6)+S(V1)] POSSIBLE SEPTAL MYOCARDIAL INFARCTION , OF INDETERMINATE AGE [30 ms Q WAVE IN V1/V2] Compared to ECG 06/01/2021 00:18:21 Myocardial infarct finding now present Atrial fibrillation no longer present Aberrant conduction of supraventricular beat(s) no longer present Electronically Signed On 06-08-2021 20:05:49 CDT by Keisha Coronel M.D. [id number]
[2021-06-08 04:10] LABS: Troponin 5 6HR 31.89 ng/L (0-10); Troponin 5 6HR Delta -1.11 ng/L (0-12)
[2021-06-08] MEDS: heparin 5,000 unit/mL INJ 1 mL 5000 UNIT SUBCUT ×3 (05:50→20:22)
--- NOTE | 2021-06-08 06:30 | PC.NURSE ---
Shift Note Frequent safety and comfort rounds continue. Orders and/or nursing care completed as indicated. Patient monitored for response to intervention and treatment(s). Will continue to monitor.
[2021-06-08 06:38] LABS: Glucose Point of Care 147 mg/dL (70-110)
[2021-06-08] MEDS: pantoprazole DR 40 mg Tablet PO (08:42)
--- NOTE | 2021-06-08 09:13 | PC.CHAP ---
Pastoral Care Encounter/Spiritual Assessment Type of Contact [] Declined stone driller visit [] Patient/Family/Request visit [] Outpatient visit [] Follow-up visit [] Physician referral [] Code/Alert [x] Routine visit [] Staff referral [] Actively dying [] Patient sleeping [x] Family support [] [] Out of room [] Palliative care [] [] Receiving care in room [] Pre-surgical visit [] Trauma [] Long length of stay [] ICU visit [] Other: Relational/Emotional Strength [] Patient feels connected with others/family/visitors/staff [] Distress [] Loneliness/isolation [] Abandonment Spirituality of Patient [] Person of Joelle [] Attends Islam of their Joelle [] Believes in Prayer [] Reads Bible or Church materials [] There are Spiritual issues to be addressed Destaticizer Feeder Interventions [x] Prayer [x] Active listening [x] Non-anxious presence [x] Spiritual/emotional support [] Crisis/trauma care [] Spiritual counseling [] Bereavement support [] Provided bereavement packet [] Provided Bible/devotional materials [] Provided toy/stuffed animal, coloring book to patient or family member [] Provided Communion [] Anointing/[place] [] Salvation [x] Completed spiritual assessment [] Other: Impact on Illness or Injury [] Angry [] Fearful [] Anxious [] Often cries [] Exhaustion [] Unable to work [] Unable to attend [employer] [] Unable to walk/stand [] Unable to read [] Unable to drive [] Unable to eat/drink [] Unable to sleep [] Unable to be with family [] Patient intubated [] Other: Summary feeling stronger... Time spent with patient 5 min
[2021-06-08] MEDS: metoprolol tartrate 50 mg Tablet PO ×2 (09:41→20:22)
--- NOTE | 2021-06-08 10:59 | PM.PN ---
Subjective Subjective: Interval history: Patient was seen and examined this morning, seen resting comfortably in bed, worried about her blood pressure.Her other vitals and labs have been reviewed. Medications: Reviewed: Yes Vitals/I&O/Wt Last Vital Signs Temp 98.4 F 06/08/21 08:59 Pulse 78 06/08/21 09:13 Resp 27 H 06/08/21 08:59 BP 137/61 06/08/21 09:13 Pulse Ox 94 06/08/21 08:59 06/07/21 06/08/21 06/08/21 22:59 06:59 14:59 Intake Total 500 / 500 50 / 550 360 / 360 Balance 500 / 500 50 / 550 360 / 360 Weight last 48 hrs Weight 101.877 kg Weight 99.79 kg Physical Exam Const: COMMON NORMALS: patient oriented x3 HENMT: COMMON NORMALS: normocephalic and atraumatic HEAD & SCALP: normocephalic and atraumatic Resp: COMMON NORMALS: clear to auscultation bilaterally AUSCULTATION: clear to auscultation bilaterally Cardio: COMMON NORMALS: regular rate, regular rhythm, S1 normal heart sound present, S2 normal heart sound present, No gallops present (Cardio), No murmurs present (Cardio), No rub (Cardio) and Peripheral pulses 2+ throughout RATE: regular rate RHYTHM: regular rhythm HEART SOUNDS: S1 normal heart sound present and S2 normal heart sound present PERIPHERAL PULSES: Peripheral pulses 2+ throughout GI: COMMON NORMALS: Normal to inspection, nondistended, normoactive bowel sounds present, Soft to palpation, non-tender, No hepatosplenomegaly present and no masses AUSCULTATION: Yes normoactive bowel sounds PALPATION: Yes Soft to palpation and Yes No hepatosplenomegaly present RECTAL EXAM: deferred Extremity: COMMON NORMALS: no clubbing, cyanosis or edema and no pedal edema Neuro: COMMON NORMALS: patient oriented x3 Data : 06/07/21 21:20 06/07/21 21:20 A&P Assessment and plan (1) Orthostatic hypotension: Patient has history of chronic orthostatic hypotension. Repeat orthostatic vitals check; Q6H. Continue to hold antihypertensive medications. Continue to hold diuretics. Has received IV fluids in the ER. Fall precautions Status: Acute (2) Acute kidney injury: Creatinine increased to 1.7 Monitor BMP Monitor urine output Status: Acute (3) Chronic atrial fibrillation: Continue metoprolol tartrate 50 mg p.o. twice daily Currently heart rate is well controlled. Patient is not anticoagulation because of recurrent history of fall Status: Acute (4) Coronary artery disease: Status: Acute Qualifiers: Associated angina: without angina Coronary Disease-Associated Artery/Lesion type: [place] artery [place] vs. transplanted heart: [place] heart Qualified Code(s): I25.10 - Atherosclerotic heart disease of [place] coronary artery without angina pectoris (5) Hypertension: Currently blood pressure is well controlled. Continue to monitor blood pressure for now Status: Acute (6) Hypothyroidism: Continue levothyroxine 175 mcg p.o. daily Status: Acute Qualifiers: Hypothyroidism type: acquired Qualified Code(s): E03.9 - Hypothyroidism, unspecified (7) Morbid obesity: Status: Chronic (8) Recurrent falls: Status: Acute (9) Heart failure with preserved ejection fraction: Currently compensated. Status: Acute (10) COPD (chronic obstructive pulmonary disease): Not in exacerbation At baseline supplemental oxygen Status: Chronic Qualifiers: COPD type: unspecified COPD Qualified Code(s): J44.9 - Chronic obstructive pulmonary disease, unspecified Attestations Medical Necessity Statement*: Patient needs to be in hospital for management of lightheadedness and dizziness secondary to orthostatic hypotension. Coding Level of Care Code Acute Manufacturing Development Engineer for [facility] Diagnoses Orthostatic hypotension I95.1 Acute kidney injury N17.9 Chronic atrial fibrillation I48.20 Coronary artery disease I25.10 Associated angina: without angina Coronary Disease-Associated Artery/Lesion type: [place] artery [place] vs. transplanted heart: [place] heart Hypertension I10 Hypothyroidism E03.9 Hypothyroidism type: acquired Morbid obesity E66.01 Recurrent falls R29.6 Heart failure with preserved ejection fraction I50.30 COPD (chronic obstructive pulmonary disease) J44.9 COPD type: unspecified COPD
[2021-06-08] MEDS: levothyroxine 175 mcg Tablet PO (13:27)
--- NOTE | 2021-06-08 16:22 | PC.NURSE ---
Notified Physician regarding pt's confusion. Pt is confused compared to earlier today. Pt is unable to tell me where she is or her name or but can answer questions regarding where she lives, husbands name, and year. Physician is aware.
--- NOTE | 2021-06-08 17:32 | PC.PT ---
Patient supine in bed, familiar with this therapist for many visits there, states has been toileting frequently with nursing staff, and hoping to go home tomorrow, declines physical therapy evaluation at this time, nursing reports patient only requiring standby assistance which is prior level of function due to history of many falls patient spouse provides this at home, patient familiar with known lower extremity exercise program, and able to continue independently, no further PT visits planned at this time, patient verbalized agreement to same.
--- NOTE | 2021-06-08 20:37 | PC.NURSE ---
Received report from SHEMAR Young. Patient resting in bed. Assisted patient up to BSC, Patient tolerated well. Patient denies pain or needs. No distress observed. Discussed plan for the evening. Patient verbalized understanding. Will continue to monitor.
[2021-06-09] VITALS (10 sets, daily range): BP systolic 93–146; BP diastolic 55–94; PULSE 90–127; RESP 17–32; TEMP 36.7–36.9; O2SAT 95–98
--- NOTE | 2021-06-09 03:36 | PC.NURSE ---
Patient has been up to BSC a couple of times this shift ad suraj. Patient has tolerated well. Patient calling for this RN by name to assist back in bed and with positioning. Patient has been aaox4 this night. Patient denies pain or needs. No distress observed. Will continue to monitor.
[2021-06-09 05:17] LABS: Basophils % 0.5 %; Eosinophils % 0.5 %; Hematocrit 29.7 % (37.0-47.0); Hemoglobin 9.9 g/dL (11.5-15.3); Lymphocytes # 1.6 10^3/uL (0.8-4.8); Lymphocytes % 28.3 %; Mean Corpuscular HGB Conc 33.3 g/dL (30.0-36.0); Mean Corpuscular Hemoglobin 33.7 pg (28.0-34.0); Monocytes # 0.6 10^3/uL (0.2-0.9); Neutrophils # 3.36 10^3/uL (1.8-7.7); Neutrophils % 60.3 %; Nucleated Red Blood Cells % 0 %; Platelet Count 152 10^3/cmm (130-400); Red Blood Count 2.94 10^6/uL (4.1-5.3); White Blood Count 5.6 10^3/uL (4.0-10.0)
[2021-06-09 05:34] LABS: Alanine Aminotransferase 19 U/L (0-33); Albumin Level 3.5 g/dL (3.5-5.2); Alkaline Phosphatase 92 IU/L (35-105); Anion Gap 16.1 (5-19); Aspartate Amino Transferase 29 U/L (0-32); Blood Urea Nitrogen 32 mg/dL (8-23); Calcium 10.1 mg/dL (8.5-10.5); Carbon Dioxide 32 mmol/L (22-29); Chloride 96 mmol/L (98-107); Globulin 2.7 g/dL (1.3-4.6); Glucose 284 mg/dL (65-115); Magnesium 1.9 mg/dL (1.7-2.3); Osmolality Calculated 307 mOsm/kg (285-295); Potassium 4.1 mmol/L (3.5-5.1); Sodium 140 mmol/L (136-145); Total Bilirubin 0.2 mg/dL (0.15-1.2); Total Protein 6.2 g/dL (6.6-8.7)
[2021-06-09 05:39] LABS: Creatinine Clr Calc Pharmacy 46.2837
[2021-06-09] MEDS: heparin 5,000 unit/mL INJ 1 mL 5000 UNIT SUBCUT ×3 (06:22→20:01)
--- NOTE | 2021-06-09 06:36 | PC.NURSE ---
Shift Note Frequent safety and comfort rounds continue. Orders and/or nursing care completed as indicated. Patient monitored for response to intervention and treatment(s). Education provided includes heparin. Patient verbalized complete understanding. Patient has been AAOx3 for this shift. Called this RN out by name many times through the night. Patient up several times with standby assist only. Patient denies pain or needs. No distress observed. Will continue to monitor.
[2021-06-09] MEDS: levothyroxine 175 mcg Tablet PO (09:10)
[2021-06-09] MEDS: metoprolol tartrate 50 mg Tablet PO (09:10)
[2021-06-09] MEDS: pantoprazole DR 40 mg Tablet PO (09:10)
--- NOTE | 2021-06-09 12:35 | ECG_ITS ---
[facility] Test Date: 2021-06-09 Pat Name: Myesha Parker Department: Room: 106 Gender: Female [employer] Shift Lead: : 1950 Requested By: Enrique Dong Order Number: [id number] Wilbur MD: Lucia Oakley M.D. Measurements Intervals [place] Rate: 97 P: SD: QRS: -72 QRSD: 144 T: 18 QT: 395 QTc: 502 Interpretive Statements ATRIAL FIBRILLATION WITH ABERRANT CONDUCTION OR VENTRICULAR PREMATURE COMPLEXES RIGHT BUNDLE BRANCH BLOCK LEFT ANTERIOR FASCICULAR BLOCK [QRS AXIS <= -45, QR IN I, RS IN II] VOLTAGE CRITERIA FOR LVH POSSIBLE SEPTAL MYOCARDIAL INFARCTION , OF INDETERMINATE AGE Compared to ECG 06/08/2021 00:47:12 Aberrant conduction of supraventricular beat(s) now present Sinus rhythm no longer present Myocardial infarct finding still present Electronically Signed On 06-10-2021 5:49:39 CDT by Lucia Oakley M.D. [id number]
--- NOTE | 2021-06-09 14:38 | PM.PN ---
Subjective Subjective: Interval history: Continue to complain of significant dizziness as well as lightheadedness, continued to have significant orthostatic hypotension. Medications: Reviewed: Yes Vitals/I&O/Wt Last Vital Signs Temp 98.4 F 06/09/21 14:22 Pulse 112 H 06/09/21 14:22 Resp 32 H 06/09/21 14:22 BP 112/55 06/09/21 14:22 Pulse Ox 96 06/09/21 14:22 06/08/21 06/09/21 06/09/21 22:59 06:59 14:59 Intake Total 236 / 956 480 / 1436 Balance 236 / 956 480 / 1436 Weight last 48 hrs Weight 101.877 kg Weight 99.79 kg Physical Exam Const: COMMON NORMALS: patient oriented x3 HENMT: COMMON NORMALS: normocephalic and atraumatic HEAD & SCALP: normocephalic and atraumatic Resp: COMMON NORMALS: clear to auscultation bilaterally AUSCULTATION: clear to auscultation bilaterally Cardio: COMMON NORMALS: regular rate, regular rhythm, S1 normal heart sound present, S2 normal heart sound present, No gallops present (Cardio), No murmurs present (Cardio), No rub (Cardio) and Peripheral pulses 2+ throughout RATE: regular rate RHYTHM: regular rhythm HEART SOUNDS: S1 normal heart sound present and S2 normal heart sound present PERIPHERAL PULSES: Peripheral pulses 2+ throughout GI: COMMON NORMALS: Normal to inspection, nondistended, normoactive bowel sounds present, Soft to palpation, non-tender, No hepatosplenomegaly present and no masses AUSCULTATION: Yes normoactive bowel sounds PALPATION: Yes Soft to palpation and Yes No hepatosplenomegaly present RECTAL EXAM: deferred Extremity: COMMON NORMALS: no clubbing, cyanosis or edema and no pedal edema Neuro: COMMON NORMALS: patient oriented x3 Data : 06/09/21 04:57 06/09/21 04:57 A&P Assessment and plan (1) Orthostatic hypotension: Patient has history of chronic orthostatic hypotension. Repeat orthostatic vitals check; Q6H. Continue to hold antihypertensive medications. Midodrine 5 mg p.o. 3 times daily Compression stockings Continue to hold diuretics. Has received IV fluids in the ER. Fall precautions Status: Acute (2) Acute kidney injury: Creatinine increased to 1.7, currently serum creatinine is improving Monitor BMP Monitor urine output Status: Inactive (3) Chronic atrial fibrillation: Continue metoprolol tartrate 25 mg p.o. twice daily Currently heart rate is well controlled. Patient is not anticoagulation because of recurrent history of fall Status: Acute (4) Coronary artery disease: Status: Acute Qualifiers: Coronary Disease-Associated Artery/Lesion type: [place] artery [place] vs. transplanted heart: [place] heart Associated angina: without angina Qualified Code(s): I25.10 - Atherosclerotic heart disease of [place] coronary artery without angina pectoris (5) Hypertension: Currently blood pressure is well controlled. Continue to monitor blood pressure for now Status: Acute (6) Hypothyroidism: Continue levothyroxine 175 mcg p.o. daily Status: Acute Qualifiers: Hypothyroidism type: acquired Qualified Code(s): E03.9 - Hypothyroidism, unspecified (7) Morbid obesity: Status: Chronic (8) Recurrent falls: Status: Acute (9) Heart failure with preserved ejection fraction: Currently compensated. Status: Acute (10) COPD (chronic obstructive pulmonary disease): Not in exacerbation At baseline supplemental oxygen Status: Chronic Qualifiers: COPD type: unspecified COPD Qualified Code(s): J44.9 - Chronic obstructive pulmonary disease, unspecified Attestations Medical Necessity Statement*: Patient needs to be in hospital for management of severe symptomatic orthostatic hypotension. Coding Level of Care Code Acute Print Line Tailer for Dougie Samson Diagnoses Orthostatic hypotension I95.1 Acute kidney injury N17.9 Chronic atrial fibrillation I48.20 Coronary artery disease I25.10 Coronary Disease-Associated Artery/Lesion type: [place] artery [place] vs. transplanted heart: [place] heart Associated angina: without angina Hypertension I10 Hypothyroidism E03.9 Hypothyroidism type: acquired Morbid obesity E66.01 Recurrent falls R29.6 Heart failure with preserved ejection fraction I50.30 COPD (chronic obstructive pulmonary disease) J44.9 COPD type: unspecified COPD
[2021-06-09] MEDS: midodrine 5 mg TABLET PO ×2 (14:50→20:01)
[2021-06-09] MEDS: metoprolol tartrate 25 mg Tablet PO (20:01)
[2021-06-09] MEDS: acetaminophen 325 mg Tablet 650 MG PO (21:54)
[2021-06-10] VITALS (15 sets, daily range): BP systolic 114–167; BP diastolic 68–116; PULSE 71–135; RESP 16–34; TEMP 36.6–37.1; O2SAT 94–99
--- NOTE | 2021-06-10 02:10 | ECG_ITS ---
[facility] Test Date: 2021-06-10 Pat Name: Myesha Parker Department: Room: 106 Gender: Female Welt Cutter: : 1950 Requested By: Mikayla May Order Number: [id number] Wilbur MD: Victoriano White M.D. Measurements Intervals [place] Rate: 134 P: 265 [place]: 194 QRS: -82 QRSD: 156 T: 14 QT: 337 QTc: 504 Interpretive Statements ATRIAL TACHYCARDIA RIGHT BUNDLE BRANCH BLOCK [120+ ms QRS DURATION, UPRIGHT V1, 40+ ms S IN I/aVL/V4/V5/V6] LEFT ANTERIOR FASCICULAR BLOCK [QRS AXIS <= -45, QR IN I, RS IN II] VOLTAGE CRITERIA FOR LVH [MEETS CRITERIA IN ONE OF: R(aVL), S(V1), R(V5), R(V5/V6)+S(V1)] POSSIBLE SEPTAL MYOCARDIAL INFARCTION , OF INDETERMINATE AGE [30 ms Q WAVE IN V1/V2] Compared to ECG 06/09/2021 12:39:43 Atrial fibrillation no longer present Ventricular premature complex(es) no longer present Aberrant conduction of supraventricular beat(s) no longer present Myocardial infarct finding still present Electronically Signed On 06-10-2021 18:38:00 CDT by Victoriano White M.D. [id number]
--- NOTE | 2021-06-10 02:21 | PC.NURSE ---
Addendum entered by Bambi Owens RN 06/10/21 02:41: BP 136/92 Original Note: Patient up to BSC. Noted patient's heart rate increased to 130s sustained. Patient c/o chest pain with diaphoresis. Dr May informed. EKG obtained. Doctor placing orders at this time.
[2021-06-10] MEDS: metoprolol tartrate 1 mg/1 mL SDV 5 mL 5 MG IVP (02:38)
[2021-06-10] MEDS: nitroglycerin 0.4 mg sublingual Tablet SUBLINGUAL (02:40)
--- NOTE | 2021-06-10 02:44 | PC.NURSE ---
Administered metoprolol 5mg IVP as ordered as well as gave 1tab SL nitroglycerin. Patient reports relief of chest pain. Heart rate continues 120s to mid 130s. VS as documented.
--- NOTE | 2021-06-10 03:51 | PC.NURSE ---
Assisted patient up to BSC. Patient reports feeling better. Dr May in to see patient at this time. No new orders presently. Will continue to monitor.
--- NOTE | 2021-06-10 05:10 | PC.NURSE ---
Shift Note Frequent safety and comfort rounds continue. Orders and/or nursing care completed as indicated. Patient monitored for response to intervention and treatment(s). Education provided includes IV Metoprolol. Patient verbalized understanding. Patient continues to have heart rate 110s to 130s presently. Reports feeling chest pain free at this time. Patient resting with eyes closed with spontaneous eye opening. No other distress observed. . Will continue to monitor.
[2021-06-10] MEDS: heparin 5,000 unit/mL INJ 1 mL 5000 UNIT SUBCUT ×3 (05:59→21:31)
[2021-06-10] MEDS: pantoprazole DR 40 mg Tablet PO (08:59)
[2021-06-10] MEDS: levothyroxine 175 mcg Tablet PO (08:59)
[2021-06-10] MEDS: midodrine 5 mg TABLET PO ×3 (08:59→21:31)
[2021-06-10] MEDS: metoprolol tartrate 25 mg Tablet 50 MG PO ×2 (08:59→21:31)
[2021-06-10 11:43] LABS: Basophils % 0.6 %; Eosinophils # 0.1 10^3/uL (0.0-0.8); Eosinophils % 1.2 %; Hematocrit 28.3 % (37.0-47.0); Hemoglobin 9.4 g/dL (11.5-15.3); Lymphocytes # 1.2 10^3/uL (0.8-4.8); Lymphocytes % 23.9 %; Mean Corpuscular HGB Conc 33.2 g/dL (30.0-36.0); Mean Corpuscular Hemoglobin 33.7 pg (28.0-34.0); Mean Corpuscular Volume 101.4 fl (81-99); Mean Platelet Volume 9.8 fL (7.4-10.4); Monocytes # 0.5 10^3/uL (0.2-0.9); Monocytes % 10.1 %; Neutrophils # 3.25 10^3/uL (1.8-7.7); Nucleated Red Blood Cells % 0 %; Platelet Count 147 10^3/cmm (130-400); Red Blood Count 2.79 10^6/uL (4.1-5.3); Red Cell Distribution Width 13.7 % (12.1-15.1); White Blood Count 5.1 10^3/uL (4.0-10.0)
[2021-06-10 12:07] LABS: Anion Gap 11.9 (5-19); Blood Urea Nitrogen 31 mg/dL (8-23); Calcium 9.8 mg/dL (8.5-10.5); Carbon Dioxide 34 mmol/L (22-29); Chloride 94 mmol/L (98-107); Glucose 259 mg/dL (65-115); Osmolality Calculated 297 mOsm/kg (285-295); Potassium 3.9 mmol/L (3.5-5.1); Sodium 136 mmol/L (136-145)
--- NOTE | 2021-06-10 15:11 | PM.PN ---
Subjective Subjective: Interval history: overnight she went into A. fib with RVR, Medications: Reviewed: Yes Vitals/I&O/Wt Last Vital Signs Temp 97.9 F 06/10/21 09:31 Pulse 76 06/10/21 13:26 Resp 34 H 06/10/21 13:26 BP 142/92 06/10/21 13:26 Pulse Ox 99 06/10/21 04:04 06/10/21 06/10/21 06/10/21 06:59 14:59 22:59 Intake Total 360 / 360 Balance 360 / 360 Physical Exam Const: COMMON NORMALS: patient oriented x3 HENMT: COMMON NORMALS: normocephalic and atraumatic HEAD & SCALP: normocephalic and atraumatic Resp: COMMON NORMALS: clear to auscultation bilaterally AUSCULTATION: clear to auscultation bilaterally Cardio: COMMON NORMALS: regular rate, regular rhythm, S1 normal heart sound present, S2 normal heart sound present, No gallops present (Cardio), No murmurs present (Cardio), No rub (Cardio) and Peripheral pulses 2+ throughout RATE: regular rate RHYTHM: regular rhythm HEART SOUNDS: S1 normal heart sound present and S2 normal heart sound present PERIPHERAL PULSES: Peripheral pulses 2+ throughout GI: COMMON NORMALS: Normal to inspection, nondistended, normoactive bowel sounds present, Soft to palpation, non-tender, No hepatosplenomegaly present and no masses AUSCULTATION: Yes normoactive bowel sounds PALPATION: Yes Soft to palpation and Yes No hepatosplenomegaly present RECTAL EXAM: deferred Extremity: COMMON NORMALS: no clubbing, cyanosis or edema and no pedal edema Neuro: COMMON NORMALS: patient oriented x3 Data : 06/10/21 11:36 06/10/21 11:36 A&P Assessment and plan (1) Chronic atrial fibrillation: A. fib with RVR: Overnight patient went into A. fib with RVR: Requiring IV metoprolol; Metoprolol dose has been increased to 50 mg p.o. twice daily. Patient is not anticoagulation because of recurrent history of fall Status: Acute (2) Orthostatic hypotension: Patient has history of chronic orthostatic hypotension. Repeat orthostatic vitals check; Q6H. Continue to hold antihypertensive medications. Midodrine 5 mg p.o. 3 times daily Compression stockings Continue to hold diuretics. Has received IV fluids in the ER. Fall precautions Status: Acute (3) Acute kidney injury: Creatinine increased to 1.7, currently serum creatinine is improving Monitor BMP Monitor urine output Status: Inactive (4) Coronary artery disease: Status: Acute Qualifiers: Associated angina: without angina Coronary Disease-Associated Artery/Lesion type: [place] artery [place] vs. transplanted heart: [place] heart Qualified Code(s): I25.10 - Atherosclerotic heart disease of [place] coronary artery without angina pectoris (5) Hypertension: Currently blood pressure is well controlled. Continue to monitor blood pressure for now Status: Acute (6) Hypothyroidism: Continue levothyroxine 175 mcg p.o. daily Status: Acute Qualifiers: Hypothyroidism type: acquired Qualified Code(s): E03.9 - Hypothyroidism, unspecified (7) Morbid obesity: Status: Chronic (8) Recurrent falls: Status: Acute (9) Heart failure with preserved ejection fraction: Currently compensated. 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 transplanted heart: [place] heart Hypertension I10 Hypothyroidism E03.9 Hypothyroidism type: acquired Morbid obesity E66.01 Recurrent falls R29.6 Heart failure with preserved ejection fraction I50.30 COPD (chronic obstructive pulmonary disease) J44.9 COPD type: unspecified COPD
--- NOTE | 2021-06-10 16:12 | PC.RESP ---
PULMONARY REHAB INFORMATION SENT TO PATIENT.
--- NOTE | 2021-06-10 23:45 | PC.NURSE ---
Patient currently oriented to person, place, and time. Per report, patient can become confused at times. Bed alarm is set.
[2021-06-11] VITALS (8 sets, daily range): BP systolic 155–186; BP diastolic 67–110; PULSE 74–102; RESP 17–27; TEMP 36.7–36.9; O2SAT 96–100
[2021-06-11] MEDS: heparin 5,000 unit/mL INJ 1 mL 5000 UNIT SUBCUT (04:36)
[2021-06-11 06:37] LABS: Basophils % 0.5 %; Eosinophils # 0.1 10^3/uL (0.0-0.8); Eosinophils % 1.9 %; Hematocrit 29.4 % (37.0-47.0); Hemoglobin 9.3 g/dL (11.5-15.3); Lymphocytes # 0.9 10^3/uL (0.8-4.8); Mean Corpuscular HGB Conc 31.6 g/dL (30.0-36.0); Mean Corpuscular Volume 104.3 fl (81-99); Mean Platelet Volume 10.3 fL (7.4-10.4); Monocytes # 0.5 10^3/uL (0.2-0.9); Monocytes % 11.7 %; Neutrophils # 2.78 10^3/uL (1.8-7.7); Neutrophils % 65.2 %; Nucleated Red Blood Cells % 0 %; Platelet Count 130 10^3/cmm (130-400); Red Blood Count 2.82 10^6/uL (4.1-5.3); Red Cell Distribution Width 13.9 % (12.1-15.1); White Blood Count 4.3 10^3/uL (4.0-10.0)
[2021-06-11 07:30] LABS: Blood Urea Nitrogen 32 mg/dL (8-23); Carbon Dioxide 32 mmol/L (22-29); Chloride 98 mmol/L (98-107); Glucose 292 mg/dL (65-115); Osmolality Calculated 310 mOsm/kg (285-295); Sodium 141 mmol/L (136-145)
[2021-06-11] MEDS: metoprolol tartrate 25 mg Tablet 50 MG PO (08:16)
[2021-06-11] MEDS: levothyroxine 175 mcg Tablet PO (08:16)
[2021-06-11] MEDS: pantoprazole DR 40 mg Tablet PO (08:16)
[2021-06-11] MEDS: midodrine 5 mg TABLET PO (08:16)
--- NOTE | 2021-06-11 13:28 | PM.DCS ---
Discharge Providers Date of Admission: 06/07/21 23:17 Date of Discharge: June 11, 2021 Attending Provider at Admission: Mikayla May Attending Provider at Discharge: Enrique Dong MD Primary Care Provider: Jessica Prajapati Diagnoses at Discharge Discharge Diagnosis (1) Chronic atrial fibrillation: Status: Acute (2) Orthostatic hypotension: Status: Acute (3) Acute kidney injury: Status: Inactive (4) Coronary artery disease: Status: Acute Qualifiers: Associated angina: without angina Coronary Disease-Associated Artery/Lesion type: [place] artery [place] vs. transplanted heart: [place] heart Qualified Code(s): I25.10 - Atherosclerotic heart disease of [place] coronary artery without angina pectoris (5) Hypertension: Status: Acute (6) Hypothyroidism: Status: Acute Qualifiers: Hypothyroidism type: acquired Qualified Code(s): E03.9 - Hypothyroidism, unspecified (7) Morbid obesity: Status: Chronic Permanent problem details: She has limited activity tolerance and exertional dyspnea, which affects her ability to exercise and participate in physical activities. (8) Recurrent falls: Status: Acute (9) Heart failure with preserved ejection fraction: Status: Acute (10) COPD (chronic obstructive pulmonary disease): Status: Chronic Permanent problem details: Oxygen dependent, 2 L at baseline Qualifiers: COPD type: unspecified COPD Qualified Code(s): J44.9 - Chronic obstructive pulmonary disease, unspecified Reason for Visit Reason for Visit: High Blood Pressure, [facility] Hospital Course Hospital Course 70-year-old female with a past medical history significant for chronic obstructive pulmonary disease, paroxysmal atrial fibrillation, chronic diastolic heart failure, who presented to the hospital with lightheadedness and dizziness. Patient was found to be orthostatic. Patient's blood pressure was noted to be 128 with lying and dropped to systolics of 100 with standing. Patient was given IV fluids in emergency room. she was admitted for the management of symptomatic chronic orhthostatic hypotension as well as CYNTHIA on CKD Stage 3.She was adequately volume replaced with I.V Fluids.Lasix was held on discharge for a week and then resume,o/h vitals were monitored,initially beta blockers were also held and midodrine 5 mg po TID was started and she was discharged on it.Metoprolol.T was restarted at a lower dose of 50 mg po BID as she went into a.fib with RVR during hospital stay.At the time of discharge her symptoms had improved a lot she was ambulating well with minimum or occasional lightheadedness and dizziness.H/R and blood pressure was well controlled.Patient responded well to the above medical management and She was discharged in stable condition to home.She will continue to follow cardiology as outpatient. Physical Exam Const: COMMON NORMALS: patient oriented x3 HENMT: COMMON NORMALS: normocephalic and atraumatic HEAD & SCALP: normocephalic and atraumatic Resp: COMMON NORMALS: clear to auscultation bilaterally AUSCULTATION: clear to auscultation bilaterally Cardio: COMMON NORMALS: regular rate, regular rhythm, S1 normal heart sound present, S2 normal heart sound present, No gallops present (Cardio), No murmurs present (Cardio), No rub (Cardio) and Peripheral pulses 2+ throughout RATE: regular rate RHYTHM: regular rhythm HEART SOUNDS: S1 normal heart sound present and S2 normal heart sound present PERIPHERAL PULSES: Peripheral pulses 2+ throughout GI: COMMON NORMALS: Normal to inspection, nondistended, normoactive bowel sounds present, Soft to palpation, non-tender, No hepatosplenomegaly present and no masses AUSCULTATION: Yes normoactive bowel sounds PALPATION: Yes Soft to palpation and Yes No hepatosplenomegaly present RECTAL EXAM: deferred Extremity: COMMON NORMALS: no clubbing, cyanosis or edema and no pedal edema Neuro: COMMON NORMALS: patient oriented x3 Discharge Data Data Completed and Pending: Completed Studies During Hospitalization Category Date Time Status CT head wo con* [id number] Stat Cat Scan 06/07/21 20:49 Completed XR chest 1V teetee ble [id number] Stat Exams 06/07/21 18:07 Completed Pending at discharge Category Date Time Status Basic Metabolic P [place] AM LABS Lab 06/12/21 04:00 Ordered Complete Blood Co unt w/Auto AM LABS Lab 06/12/21 04:00 Ordered Labs from last 24 hours 06/11/21 06/11/21 06:00 06:00 WBC 4.3 RBC 2.82 L Hgb 9.3 L Hct 29.4 L MCV 104.3 H MCH 33.0 MCHC 31.6 RDW 13.9 Plt Count 130 MPV 10.3 Neut % (Auto) 65.2 Lymph % (Auto) 20.0 [place] % (Auto) 11.7 Eos % (Auto) 1.9 Baso % (Auto) 0.5 Neut # (Auto) 2.78 Lymph # (Auto) 0.9 [place] # (Auto) 0.5 Eos # (Auto) 0.1 Baso # (Auto) 0.0 Nucleated RBC % (a uto) 0 Nucleated RBCs # 0.0 Sodium 141 Potassium 4.0 Chloride 98 Carbon Dioxide 32 H Anion Gap 15.0 BUN 32 H Creatinine 1.1 H GFR Calculation Not Reportable Glucose 292 H Calculated Osmolal ity 310 H Calcium 10.0 Vitals: Last Vital Signs Temp 98.1 F 06/11/21 08:00 Pulse 84 06/11/21 08:15 Resp 18 06/11/21 08:00 BP 183/67 06/11/21 08:15 Pulse Ox 98 06/11/21 08:00 Discharge Plan Discharge Patient Disposition: Home Condition: Stable Prescriptions: New midodrine 5 mg Tablet 5 mg PO TID 30 Days Qty: 90 RF: 3 Continued Humira Pen 40 mg/0.8 mL pen injector kit 40 mg SUBCUT Q14D Qty: 2 RF: 3 folic acid 1 mg tablet 1 mg PO DAILY@08 Qty: 90 RF: 1 prednisone 2.5 mg tablet 2.5 mg PO DAILY Qty: 90 RF: 1 sulfasalazine 500 mg tablet 500 mg PO BID@08,17 Qty: 60 RF: 3 nitroglycerin [Nitrostat] 0.4 mg tablet, sublingual 0.4 mg SUBLINGUAL Q5M PRN (Reason: Chest Pain) Qty: 30 RF: 3 atorvastatin [Lipitor] 40 mg Tablet 40 mg PO BEDTIME RF: 0 acetaminophen [Arthritis Pain Reliever] 650 mg Tablet Extended Release 650 mg PO PRN RF: 0 pyridoxine (vitamin B6) [Vitamin B-6] 100 mg Tablet 100 mg PO DAILY@08 RF: 0 cholecalciferol (vitamin D3) [Vitamin D3] 25 mcg (1,000 unit) Tablet 2,000 unit PO DAILY@08 RF: 0 albuterol sulfate 2.5 mg /3 mL (0.083 %) Solution For Nebulization 2.5 mg inhalation TID PRN (Reason: Shortness Of Breath) RF: 0 aspirin 325 mg Tablet 325 mg PO BEDTIME@1999 RF: 0 Hold Instructions: Resume on 10/18/20. Novolin 70/30 U-100 Insulin 100 unit/mL (70-30) suspension See Rx Instructions .ROUTE .COMPLEX RF: 0 hydrocortisone 2.5 % cream See Rx Instructions .ROUTE .COMPLEX RF: 0 albuterol sulfate 90 mcg/actuation Hfa Aerosol Inhaler 2 puff INHALATION Q6H PRN (Reason: Shortness Of Breath) RF: 0 docusate sodium [Stool Softener] 250 mg Capsule 250 mg PO BID PRN (Reason: Constipation) RF: 0 cyanocobalamin (vitamin B-12) [Vitamin B-12] 500 mcg Tablet 500 mcg PO DAILY RF: 0 chlorpheniramine maleate [ChlorTabs] 4 mg Tablet See Rx Instructions .ROUTE .COMPLEX RF: 0 prednisolone acetate 1 % Drops,Suspension 1 drp ophthalmic (eye) PRN RF: 0 diphenhydramine HCl [Benadryl] 25 mg Capsule See Rx Instructions .ROUTE .COMPLEX RF: 0 riboflavin (vitamin B2) [Vitamin B-2] 50 mg Tablet 50 mg PO DAILY Qty: 0 RF: 0 methotrexate sodium 2.5 mg tablet 7.5 mg PO Q7D RF: 0 insulin lispro [Admelog U-100 Insulin lispro] 100 unit/mL Solution See Rx Instructions .ROUTE .COMPLEX RF: 0 pantoprazole [Protonix] 40 mg tablet,delayed release (DR/EC) 40 mg PO BID@ RF: 0 digoxin 125 mcg (0.125 mg) tablet See Rx Instructions .ROUTE .COMPLEX RF: 0 ferrous gluconate 324 mg (37.5 mg iron) tablet See Rx Instructions .ROUTE .COMPLEX RF: 0 magnesium L-lactate 84 mg tablet extended release 84 mg PO BID RF: 0 Changed metoprolol tartrate 100 mg tablet 50 mg PO Q12H 30 Days Qty: 30 RF: 2 Held potassium chloride 20 mEq tablet extended release 20 meq PO BID@,17 RF: 0 Hold Instructions: Resume on 06/18/21. furosemide 40 mg tablet 40 mg PO DAILY Qty: 90 RF: 3 Hold Instructions: Resume on 06/18/21. No Action duloxetine [Cymbalta] 30 mg capsule,delayed release(DR/EC) 30 mg PO DAILY@08 Qty: 30 RF: 2 duloxetine 60 mg capsule,delayed release(DR/EC) 60 mg PO DAILY Qty: 30 RF: 2 hydrocodone-acetaminophen 7.5-325 mg tablet 1 tab PO TID PRN (Reason: pain) 30 Days Qty: 90 RF: 0 tramadol 50 mg tablet 100 mg PO TID PRN (Reason: pain) Qty: 180 RF: 1 tizanidine 4 mg tablet 4 mg PO TID PRN (Reason: muscle spasticity) 30 Days Qty: 90 RF: 1 levothyroxine [Euthyrox] 150 mcg tablet 150 mcg PO DAILY RF: 0 calcium carbonate [Calcium 600] 600 mg calcium (1,500 mg) tablet 600 mg PO DAILY RF: 0 methylsulfonylmethane [MSM] 1,000 mg tablet 1,000 mg PO BID RF: 0 Discharge Orders: Discharge Order (Routine); Ordered 06/11/21 Ordered By: Enrique Dong Referrals: [facility] [Outside] Jessica Rucker APRN [Primary Care Provider] - 06/17/21 8:30 am (Please call for an follow-up appointment, you will see Sonia Alberto NP.) Discharge Diet: Diabetic Discharge Activity: Increase activity as tolerated Patient Instructions: Midodrine (By mouth), A-fib (Atrial Fibrillation) (DC), Hypotension (DC), Chest Pain [place] Discharge Attestations Time Spent in Discharge Care*: less than 30 min Specific Discharge Activities: educating patient, educating and/or supporting family/caregiver, discussing with pcp/other providers, discussing with case therapist/social workers/dc planners, documenting/other paperwork and evaluating patient/reviewing data Status at Discharge: Cognitive status at discharge: cognitively intact, Behavioral status at discharge: cooperative, Quality Metrics Clinical Quality Measures During this hospital stay, did patient experience: None Coding Level of Care Code Acute Chg FW DC note Exam Detailed Diagnoses Chronic atrial fibrillation I48.20 Orthostatic hypotension I95.1 Acute kidney injury N17.9 Coronary artery disease I25.10 Associated angina: without angina Coronary Disease-Associated Artery/Lesion type: [place] artery [place] vs. transplanted heart: [place] heart Hypertension I10 Hypothyroidism E03.9 Hypothyroidism type: acquired Morbid obesity E66.01 Recurrent falls R29.6 Heart failure with preserved ejection fraction I50.30 COPD (chronic obstructive pulmonary disease) J44.9 COPD type: unspecified COPD
== END 2021-06-11 14:30 | disposition home or self-care (01) ==
LOC: ER 22:25 → CSU 23:18
PROVIDERS: Emergency Medicine; Admitting Provider Hospitalist; Emergency Provider Emergency Medicine; PCP Clinical Nurse Specialist Adult Health; Visit Provider Internal Medicine
DX: I95.1 Orthostatic hypotension (principal); N17.9 Acute kidney failure, unspecified; I48.20 Chronic atrial fibrillation, unspecified; I25.10 Atherosclerotic heart disease of native coronary artery without angina pectoris; J44.9 Chronic obstructive pulmonary disease, unspecified; I50.30 Unspecified diastolic (congestive) heart failure; N39.0 Urinary tract infection, site not specified; I10 Essential (primary) hypertension; R29.6 Repeated falls; E78.5 Hyperlipidemia, unspecified; E03.9 Hypothyroidism, unspecified; E11.9 Type 2 diabetes mellitus without complications; E66.01 Morbid (severe) obesity due to excess calories; Z68.37 Body mass index [BMI] 37.0-37.9, adult; Z79.4 Long term (current) use of insulin; Z79.82 Long term (current) use of aspirin; Z99.81 Dependence on supplemental oxygen; Z86.16 Personal history of COVID-19; Z87.891 Personal history of nicotine dependence; Z82.49 Family history of ischemic heart disease and other diseases of the circulatory system
CPT/HCPCS: 36415; 36416; 70450; 71045; 80048; 80053; 82962; 83735; 83880; 84484; 85025; 93005; 96361; 96372; 96374; 99285; G0378; J1644; J3490; J7040

== ENCOUNTER 2021-06-20 09:43 | Emergency (ER) | payer MEDICARE, SELFPAY ==
[2021-06-20] VITALS (8 sets, daily range): BP systolic 40–132; BP diastolic 0–82; PULSE 73–97; RESP 12–22; TEMP 36.6; O2SAT 91–100; BMI 35.6
--- NOTE | 2021-06-20 10:17 | ECG_ITS ---
[facility] Test Date: 2021-06-20 Pat Name: Myesha Parker Department: Room: Gender: Female Acute Dialysis Nurse: : 1950 Requested By: Kenrick Al Order Number: [id number] Wilbur MD: Keisha Coronel M.D. Measurements Intervals [place] Rate: 78 P: SD: QRS: -61 QRSD: 156 T: 14 QT: 448 QTc: 513 Interpretive Statements Atrial fibrillation with controlled ventricular response rate RIGHT BUNDLE BRANCH BLOCK [120+ ms QRS DURATION, UPRIGHT V1, 40+ ms S IN I/aVL/V4/V5/V6] LEFT ANTERIOR FASCICULAR BLOCK [QRS AXIS <= -45, QR IN I, RS IN II] POSSIBLE LEFT VENTRICULAR HYPERTROPHY [VOLTAGE CRITERIA PLUS LAE OR QRS WIDENING] POSSIBLE SEPTAL MYOCARDIAL INFARCTION , OF INDETERMINATE AGE [30 ms Q WAVE IN V1/V2] Compared to ECG 06/10/2021 02:12:13 Ectopic atrial tachycardia, unifocal no longer present Myocardial infarct finding still present Electronically Signed On 06-20-2021 23:46:20 CDT by Keisha Coronel M.D. [email or web address]
--- NOTE | 2021-06-20 10:17 | XR_ITS ---
WS: [id number] Exam: XR chest 1V portable [id number] Date/Time of Exam: 06/20/2021 10:20 AM Reason For Exam: dyspnea/cough Comparison 06/07/2021. The lungs are clear and fully expanded. Cardiomediastinal structures are unrem arkable for portable technique. No pleural effusions. Regional bony elements are intact. Monitoring l dari superimpose the chest. XR/XR chest 1V portable [id number] IMPRESSION: 1. No acute cardiopulmonary finding.
--- NOTE | 2021-06-20 10:32 | CT_ITS ---
WS: [id number] CT ABDOMEN AND PELVIS WITH CONTRAST HISTORY: Abdominal pain. TECHNIQUE: Imaging performed of the abdomen and pelvis with IV contrast. Single phase imaging of the abdomen. Coronal and sagittal reformats are submitted. All CT scans at [facility] use at rm st one of these dose optimization techniques: automated exposure control; mA and/or kV adjustment per patient size (includes targeted exams where dose is matched to clinical indication); or iterative re construction. IV CONTRAST: Visipaque 320; 95 mL IV. Oral contrast: No DLP: 1698.24 mGy.cm COMPARISON: 11/02/2020 Lower thorax: Lung bases are clear. Moderate cardiomegaly. No hiatal hernia. Liver/biliary system: Surface of the liver is irregular. No mass or bile duct dilatation. Normal port al vein. Gallbladder: Status post cholecystectomy. Pancreas: Normal size pancreas and pancreatic duct. No adjacent inflammation. Spleen: Normal size spleen with several granulomata. Adrenal glands: Normal. Right kidney: Cortical thinning with no obstruction. There are several very small hypodensities withi n the cortex. These cannot be characterized due to their small size. Nonobstructing 3 mm calcificatio n lower pole. Left kidney: Cortical thinning with no obstruction. Hypodensities in the upper pole cannot be further characterized. Exophytic low-attenuation mass from the posterior upper pole measures 14 mm minimal i ncrease in size over several prior examinations. Aorta: Mild atherosclerosis with no aneurysm. Lymphadenopathy: None. Free fluid: None. GI tract: Appendix is not identified. No GI tract obstruction or wall thickening. Abdominal wall: Unremarkable abdominal wall. No hernia. Pelvis: Prior hysterectomy. Urinary bladder is minimally distended with diffuse bladder wall thickeni ng. Bones: LEFT lumbar scoliosis. CT/CT abdomen pelvis w con* [id number] IMPRESSION: 1. No acute abdominal or pelvic abnormalities are identified. No ascites. 2. Cirrhotic liver. 3. Prior cholecystectomy. 4. No GI tract obstruction. 5. No renal obstruction. 6. Mild diffuse urinary bladder wall thickening. Correlate for possible cystit is.
--- NOTE | 2021-06-20 10:35 | W.ED.ABDPA2 ---
HPI - Abdominal Pain General: Chief Complaint: Abdominal Pain Stated Complaint: FAINTED THIS AM Time Seen by Provider: 06/20/21 10:15 History of Present Illness: HPI narrative: 70-year-old female presents emergency room with complaint of near syncopal episode. She was at a follow-up visit for her doctor after recent hospitalization. They shawn blood and she got lightheaded and dizzy on arrival here in triage her blood pressure by manual cuff was 40 systolic by palpation. When she was brought to the exam room blood pressure is at the 90 systolic she is lightheaded and dizzy and feels weak. Most recent hospitalization was for exacerbation COPD acute renal failure hypotension which appeared to be iatrogenic as your medications were decreased and she was started on made around she still is on amlodipine 5 mg daily and digoxin. She denies any chest pain at this time but is complaining of some abdominal discomfort. She denies any dysuria urgency or frequency vomiting or diarrhea but after the episode of lightheadedness and near syncope this morning she was very nauseous. MD elicited complaint: abdominal pain Onset (ago): day(s) Radiation: none Exacerbating factors: nothing Relieving factors: nothing Associated Symptoms: Denies anorexia, belching, bloating, change in bowel habits, change in stool character, chills, coffee ground emesis, constipation, GI cramping, diarrhea, dyspepsia, dysuria, excessive flatus, fever(s), heartburn, hematochezia, hematuria, hematemesis, fecal incontinence, loose stools, melena, nausea, poor appetite, syncope and vomiting Related Data: Date of Last Menstrual Period: 11/18/20 Review of Systems Const: Denies: fever(s) or chills ENMT: Denies: throat pain, ear or mastoid pain, nasal discharge or nasal congestion Card: Denies: syncope Resp: Denies: dyspnea, productive cough or non-productive cough GI: Denies: nausea, vomiting, hematemesis, coffee ground emesis, heartburn, diarrhea, constipation, bloating, GI cramping, belching, excessive flatus, fecal incontinence, change in bowel habits, change in stool character, hematochezia or melena : Denies: dysuria or hematuria Skin/Breast: Denies: rash or pruritus PFSH ED PFSH: Medical History Anxiety and depression CHF exacerbation Chronic knee pain Chronic low back pain COPD (chronic obstructive pulmonary disease) Oxygen dependent, 2 L at baseline Coronary artery disease COVID-14 August 2020 Fibromyalgia High risk medication use Hyperlipidemia Hypertension Hypothyroidism Immunization counseling Inflammatory arthritis Intermittent atrial fibrillation Because the patient history of frequent fall she was thought to be high risk for bleeding complications. So she is taking only the aspirin at this time. SHE HAS EASY BRUISING WELL Left renal mass Liver cirrhosis Low back pain of over 3 months duration Lung nodule Narrow complex tachycardia Osteoarthritis of knees, bilateral Poorly controlled diabetes mellitus Recurrent UTI Seronegative rheumatoid arthritis of both hands Unstable angina Urgency incontinence UTI (urinary tract infection) Surgical History History of cardiac cath History of cholecystectomy History of hysterectomy History of knee replacement History of thyroid surgery Family History Other CAD (coronary artery disease) Cancer Denies family history of Anesthesia complication Bleeding disorder Social History Smoking and tobacco status: former smoker Quit status (tobacco): has quit using tobacco Year quit tobacco: 2005 Second hand smoke exposure: No Alcohol intake: never Adopted: No Caregiver/support person: No Lives independently: No Household members: spouse Marital status: Current occupational status: retired History of recent travel: No Current gender identity: Female Female Reproductive History: Date of last menstrual period: 11/18/20 Physical Exam Const: COMMON NORMALS: no acute distress GENERAL APPEARANCE: cooperative and comfortable ORIENTATION/CONSCIOUSNESS: Yes awake, Yes oriented to person, Yes oriented to place and Yes oriented to time HENMT: COMMON NORMALS: normocephalic, atraumatic and hearing grossly normal bilaterally HEAD & SCALP: normocephalic and atraumatic Neck/C-Spine: COMMON NORMALS: no JVD Resp: COMMON NORMALS: normal respiratory effort, No retractions, No use of accessory muscles and clear to auscultation bilaterally AUSCULTATION: clear to auscultation bilaterally Cardio: COMMON NORMALS: no JVD, regular rate, regular rhythm and No murmurs present (Cardio) RATE: regular rate RHYTHM: regular rhythm GI: COMMON NORMALS: Soft to palpation and No hepatosplenomegaly present AUSCULTATION: Yes normoactive bowel sounds PALPATION: Yes Soft to palpation, No Tenderness to palpation present (GI), No Guarding due to palpation present (GI) and Yes No hepatosplenomegaly present Extremity: COMMON NORMALS: normal to inspection, capillary refill normal, no clubbing, cyanosis or edema, no calf tenderness and no pedal edema Neuro: SENSORIUM/ORIENTATION: Yes oriented to person, Yes oriented to place and Yes oriented to time Skin: COMMON NORMALS: no rashes or lesions noted GENERAL SKIN EXAM: no rashes or lesions noted Course Vital Signs: Vital signs: Vital Signs Temperature 97.8 F 06/20/21 10:04 Pulse Rate 76 06/20/21 15:30 Respiratory Rate 12 06/20/21 15:30 Blood Pressure 132/82 06/20/21 15:30 Pulse Oximetry 100 06/20/21 15:30 MDM - Abdominal Pain MDM Narrative: Medical decision making narrative: Vasovagal episode with hypotension. She is feeling much better after fluids will go and discharge her home. We'll discontinue her amlodipine and have her follow-up with her primary care doctor within the week. Lab Data: Labs: Lab Results 06/20/21 06/20/21 06/20/21 10:45 10:45 10:45 WBC 9.4 10^3/uL 10^3/ uL (4.0-10.0) RBC 3.30 10^6/uL L 10 ^6/uL (4.1-5.3) Hgb 10.9 g/dL L g/dL (11.5-15.3) Hct 33.0 % L % (37.0-47.0) MCV 100.0 fl H fl (81-99) MCH 33.0 pg pg (28.0-34.0) MCHC 33.0 g/dL g/dL (30.0-36.0) RDW 13.5 % % (12.1-15.1) Plt Count 261 10^3/cmm 10^3 /cmm (130-400) MPV 9.4 fL fL (7.4-10.4) Neut % (Auto) 83.4 % % Lymph % (Auto) 8.6 % % Sutter % (Auto) 6.6 % % Eos % (Auto) 0.5 % % Baso % (Auto) 0.5 % % Neut # (Auto) 7.82 10^3/uL H 10 ^3/uL (1.8-7.7) Lymph # (Auto) 0.8 10^3/uL 10^3/ uL (0.8-4.8) Sutter # (Auto) 0.6 10^3/uL 10^3/ uL (0.2-0.9) Eos # (Auto) 0.1 10^3/uL 10^3/ uL (0.0-0.8) Baso # (Auto) 0.1 10^3/uL 10^3/ uL (0.0-0.1) Nucleated RBC % (a uto) 0 % % Nucleated RBCs # 0.0 /100WBC /100W BC Sodium 140 mmol/L mmol/L (136-145) Potassium 3.6 mmol/L mmol/L (3.5-5.1) Chloride 93 mmol/L L mmol/ L (98-107) Carbon Dioxide 37 mmol/L H mmol/ L (22-29) Anion Gap 13.6 (5-19) BUN 22 mg/dL mg/dL (8-23) Creatinine 1.6 mg/dL H mg/dL (0.5-0.9) GFR Calculation Not Reportable Glucose 326 mg/dL H mg/dL (65-115) Calculated Osmolal ity 306 mOsm/kg H mOs m/kg (285-295) Lactic Acid 2.5 mmol/L H mmol /L (0.5-2.2) Lactic Acid (Sepsi s) Calcium 9.4 mg/dL mg/dL (8.5-10.5) Total Bilirubin 0.5 mg/dL mg/dL (0.15-1.2) AST 33 U/L H U/L (0-32) ALT 29 U/L U/L (0-33) Alkaline Phosphata se 104 IU/L IU/L (35-105) Creatine Kinase 22 U/L L U/L (26-192) Troponin T Baselin e Troponin T 120 Min [place] Troponin T Total Protein 6.5 g/dL L g/dL (6.6-8.7) Albumin 3.7 g/dL g/dL (3.5-5.2) Globulin 2.8 g/dL g/dL (1.3-4.6) Lipase 32 U/L U/L (13-60) Digoxin 0.8 ng/mL ng/mL (0.6-1.2) 06/20/21 06/20/21 06/20/21 10:45 13:01 13:01 WBC RBC Hgb Hct MCV MCH MCHC RDW Plt Count MPV Neut % (Auto) Lymph % (Auto) Sutter % (Auto) Eos % (Auto) Baso % (Auto) Neut # (Auto) Lymph # (Auto) Sutter # (Auto) Eos # (Auto) Baso # (Auto) Nucleated RBC % (a uto) Nucleated RBCs # Sodium Potassium Chloride Carbon Dioxide Anion Gap BUN Creatinine GFR Calculation Glucose Calculated Osmolal ity Lactic Acid Lactic Acid (Sepsi s) 2.3 mmol/L H mmol /L (0.5-2.2) Calcium Total Bilirubin AST ALT Alkaline Phosphata se Creatine Kinase Troponin T Baselin e 36 ng/L H ng/L (0-10) Troponin T 120 Min [place] 24.25 ng/L H ng/L (0-10) Delta Troponin T -11.75 ABS# L ABS # (0-10) Total Protein Albumin Globulin Lipase Digoxin Discharge Plan Discharge Patient Disposition: Home Clinical Impression: Vasovagal episode, Hypotension Condition: Stable Prescriptions: Discontinued amlodipine 10 mg tablet 5 mg PO DAILY RF: 0 No Action potassium chloride 20 mEq tablet extended release 20 meq PO BID@ RF: 0 Hold Instructions: Resume on 06/18/21. aripiprazole [Abilify] 5 mg tablet 5 mg PO DAILY@08 Qty: 30 RF: 2 duloxetine [Cymbalta] 30 mg capsule,delayed release(DR/EC) 30 mg PO DAILY@08 Qty: 30 RF: 2 Humira Pen 40 mg/0.8 mL pen injector kit 40 mg SUBCUT Q14D Qty: 2 RF: 3 folic acid 1 mg tablet 1 mg PO DAILY@08 Qty: 90 RF: 1 prednisone 2.5 mg tablet 2.5 mg PO DAILY Qty: 90 RF: 1 sulfasalazine 500 mg tablet 500 mg PO BID@08,17 Qty: 60 RF: 3 nitroglycerin [Nitrostat] 0.4 mg tablet, sublingual 0.4 mg SUBLINGUAL Q5M PRN (Reason: Chest Pain) Qty: 30 RF: 3 furosemide 40 mg tablet 40 mg PO DAILY Qty: 90 RF: 3 Hold Instructions: Resume on 06/18/21. hydrocodone-acetaminophen 7.5-325 mg tablet 1 tab PO TID PRN (Reason: pain) 30 Days Qty: 90 RF: 0 tramadol 50 mg tablet 100 mg PO TID PRN (Reason: pain) Qty: 180 RF: 1 tizanidine 4 mg tablet 4 mg PO TID PRN (Reason: muscle spasticity) 30 Days Qty: 90 RF: 1 levothyroxine [Euthyrox] 150 mcg tablet 150 mcg PO DAILY RF: 0 calcium carbonate [Calcium 600] 600 mg calcium (1,500 mg) tablet 600 mg PO DAILY RF: 0 methylsulfonylmethane [MSM] 1,000 mg tablet 1,000 mg PO BID RF: 0 atorvastatin [Lipitor] 40 mg Tablet 40 mg PO BEDTIME RF: 0 acetaminophen [Arthritis Pain Reliever] 650 mg Tablet Extended Release 650 mg PO PRN RF: 0 pyridoxine (vitamin B6) [Vitamin B-6] 100 mg Tablet 100 mg PO DAILY@08 RF: 0 cholecalciferol (vitamin D3) [Vitamin D3] 25 mcg (1,000 unit) Tablet 2,000 unit PO DAILY@08 RF: 0 albuterol sulfate 2.5 mg /3 mL (0.083 %) Solution For Nebulization 2.5 mg inhalation TID PRN (Reason: Shortness Of Breath) RF: 0 aspirin 325 mg Tablet 325 mg PO BEDTIME@2000 RF: 0 Hold Instructions: Resume on 10/18/20. Novolin 70/30 U-100 Insulin 100 unit/mL (70-30) suspension See Rx Instructions .ROUTE .COMPLEX RF: 0 hydrocortisone 2.5 % cream See Rx Instructions .ROUTE .COMPLEX RF: 0 albuterol sulfate 90 mcg/actuation Hfa Aerosol Inhaler 2 puff INHALATION Q6H PRN (Reason: Shortness Of Breath) RF: 0 docusate sodium [Stool Softener] 250 mg Capsule 250 mg PO BID PRN (Reason: Constipation) RF: 0 cyanocobalamin (vitamin B-12) [Vitamin B-12] 500 mcg Tablet 500 mcg PO DAILY RF: 0 chlorpheniramine maleate [ChlorTabs] 4 mg Tablet See Rx Instructions .ROUTE .COMPLEX RF: 0 prednisolone acetate 1 % Drops,Suspension 1 drp ophthalmic (eye) PRN RF: 0 diphenhydramine HCl [Benadryl] 25 mg Capsule See Rx Instructions .ROUTE .COMPLEX RF: 0 riboflavin (vitamin B2) [Vitamin B-2] 50 mg Tablet 50 mg PO DAILY Qty: 0 RF: 0 methotrexate sodium 2.5 mg tablet 7.5 mg PO Q7D RF: 0 midodrine 5 mg Tablet 5 mg PO TID 30 Days Qty: 90 RF: 3 metoprolol tartrate 100 mg tablet 50 mg PO Q12H 30 Days Qty: 30 RF: 2 insulin lispro [Admelog U-100 Insulin lispro] 100 unit/mL Solution See Rx Instructions .ROUTE .COMPLEX RF: 0 pantoprazole [Protonix] 40 mg tablet,delayed release (DR/EC) 40 mg PO BID@08,17 RF: 0 digoxin 125 mcg (0.125 mg) tablet See Rx Instructions .ROUTE .COMPLEX RF: 0 duloxetine 60 mg capsule,delayed release(DR/EC) 60 mg PO DAILY RF: 0 ferrous gluconate 324 mg (37.5 mg iron) tablet See Rx Instructions .ROUTE .COMPLEX RF: 0 buspirone 10 mg tablet 10 mg PO BID RF: 0 magnesium L-lactate 84 mg tablet extended release 84 mg PO BID RF: 0 Discharge Orders: Discharge ED (Routine); Ordered 06/20/21 Ordered By: Kenrick Treviño Referrals: Jessica Rucker APRN [Primary Care Provider] - Discharge Diet: Usual diet Discharge Activity: Resume usual activity Patient Instructions: Opioid Safety Activity Restrictions/Additional Instructions: Follow-up with your primary care doctor within a week to reevaluate your blood pressure. Coding Level of Care Code ED Reduction Plant Supervisor for Dougie Samson
[2021-06-20 10:54] LABS: Basophils # 0.1 10^3/uL (0.0-0.1); Basophils % 0.5 %; Eosinophils # 0.1 10^3/uL (0.0-0.8); Eosinophils % 0.5 %; Hemoglobin 10.9 g/dL (11.5-15.3); Lymphocytes # 0.8 10^3/uL (0.8-4.8); Lymphocytes % 8.6 %; Mean Platelet Volume 9.4 fL (7.4-10.4); Monocytes # 0.6 10^3/uL (0.2-0.9); Monocytes % 6.6 %; Neutrophils # 7.82 10^3/uL (1.8-7.7); Neutrophils % 83.4 %; Nucleated Red Blood Cells % 0 %; Platelet Count 261 10^3/cmm (130-400); Red Cell Distribution Width 13.5 % (12.1-15.1); White Blood Count 9.4 10^3/uL (4.0-10.0)
[2021-06-20] MEDS: sodium chloride 0.9% 1,000 ML 999 ML IV (11:08)
[2021-06-20 11:16] LABS: Lactic Sepsis W/Reflex 2.5 mmol/L (0.5-2.2)
[2021-06-20 11:23] LABS: Alanine Aminotransferase 29 U/L (0-33); Albumin Level 3.7 g/dL (3.5-5.2); Alkaline Phosphatase 104 IU/L (35-105); Anion Gap 13.6 (5-19); Aspartate Amino Transferase 33 U/L (0-32); Blood Urea Nitrogen 22 mg/dL (8-23); Calcium 9.4 mg/dL (8.5-10.5); Carbon Dioxide 37 mmol/L (22-29); Chloride 93 mmol/L (98-107); Creatine Phosphokinase 22 U/L (26-192); Globulin 2.8 g/dL (1.3-4.6); Glucose 326 mg/dL (65-115); Lipase 32 U/L (13-60); Osmolality Calculated 306 mOsm/kg (285-295); Potassium 3.6 mmol/L (3.5-5.1); Sodium 140 mmol/L (136-145); Total Bilirubin 0.5 mg/dL (0.15-1.2); Total Protein 6.5 g/dL (6.6-8.7)
[2021-06-20 11:25] LABS: Troponin(5th) Baseline 36 ng/L (0-10)
[2021-06-20 11:38] LABS: Digoxin 0.8 ng/mL (0.6-1.2)
--- NOTE | 2021-06-20 12:17 | ECG_ITS ---
[facility] Test Date: 2021-06-20 Pat Name: Myesha Parker Department: Room: Gender: Female [employer] Worker: : 1950 Requested By: Kenrick Al Order Number: [id number] Wilbur MD: Keisha Coronel M.D. Measurements Intervals [place] Rate: 99 P: AL: QRS: -75 QRSD: 155 T: 69 QT: 393 QTc: 505 Interpretive Statements ATRIAL FIBRILLATION RIGHT BUNDLE BRANCH BLOCK [120+ ms QRS DURATION, UPRIGHT V1, 40+ ms S IN I/aVL/V4/V5/V6] LEFT ANTERIOR FASCICULAR BLOCK [QRS AXIS <= -45, QR IN I, RS IN II] SEPTAL MYOCARDIAL INFARCTION , OF INDETERMINATE AGE [40+ ms Q WAVE IN V1/V2] Compared to ECG 06/20/2021 11:35:18 Atrial flutter no longer present Myocardial infarct finding still present Electronically Signed On 06-20-2021 23:55:14 CDT by Keisha Coronel M.D. [id number]
[2021-06-20 12:38] LABS: Reflex Lactate Order REFLEX LACTIC ORDERD
[2021-06-20 13:35] LABS: Lactic Acid level (Lactate) 2.3 mmol/L (0.5-2.2)
[2021-06-20 13:52] LABS: Troponin 5 2HR 24.25 ng/L (0-10)
== END 2021-06-20 15:35 | disposition home or self-care (01) ==
PROVIDERS: Emergency Provider Family Medicine; PCP Clinical Nurse Specialist Adult Health
DX: I95.9 Hypotension, unspecified (principal); R55 Syncope and collapse; I11.0 Hypertensive heart disease with heart failure; I50.9 Heart failure, unspecified; J44.9 Chronic obstructive pulmonary disease, unspecified; E78.5 Hyperlipidemia, unspecified; E03.9 Hypothyroidism, unspecified; E11.9 Type 2 diabetes mellitus without complications; Z99.81 Dependence on supplemental oxygen; Z79.4 Long term (current) use of insulin; Z79.01 Long term (current) use of anticoagulants; Z79.82 Long term (current) use of aspirin; Z79.899 Other long term (current) drug therapy
CPT/HCPCS: 71045; 74177; 80053; 80162; 82550; 83605; 83690; 84484; 85025; 87040; 93005; 96360; 99284; J7030; Q9967

== ENCOUNTER → 2021-06-21 10:09 | Outpatient (BNVA) | payer MEDICARE, SELFPAY | PROVIDERS: PCP Internal Medicine; Visit Provider Anesthesiology | DX: G89.29 Other chronic pain (principal); M54.50 Low back pain, unspecified; M17.0 Bilateral primary osteoarthritis of knee; M06.041 Rheumatoid arthritis without rheumatoid factor, right hand; M06.042 Rheumatoid arthritis without rheumatoid factor, left hand; M79.7 Fibromyalgia; Z79.891 Long term (current) use of opiate analgesic; Z79.899 Other long term (current) drug therapy | CPT/HCPCS: 99214 ==

== ENCOUNTER 2021-06-22 21:04 | Emergency (ER) | payer MEDICARE, SELFPAY ==
--- NOTE | 2021-06-22 21:05 | XRR_ITS ---
PROCEDURE INFORMATION: Exam: XR Left Hip Exam date and time: 06/22/2021 9:05 PM Age: 70 years old Clinical indication: Injury or trauma; Fall; Blunt trauma (contusions or hematomas); Left; Hip TECHNIQUE: Imaging protocol: XR Left hip. Views: 2 or 3 views hip with pelvis when performed. COMPARISON: CT abdomen pelvis w con* [id number] 06/20/2021 12:08 PM FINDINGS: Bones/joints: No acute fracture. No dislocation. Normal bone mineralization. Stable mild degenerative change at the left hip. Soft tissues: Soft tissue calcification superior to the greater trochanter are unchanged and may represent sequela of remote trauma or degenerative change. No soft tissue swelling. No radiopaque foreign body. Vasculature: Atherosclerotic changes in the visualized arteries. XR/XR hip LT 2-3V wo/w pel* [id number] IMPRESSION: 1. No acute fracture. MRI would be recommended if clinical concern for fracture persists. 2. Incidental/nonacute findings are listed in the report. Radiation Dose CTDIVOL = (mGy): DLP = (mGy-cm)
--- NOTE | 2021-06-22 21:05 | CTR_ITS ---
PROCEDURE INFORMATION: Exam: CT Cervical Spine Without Contrast Exam date and time: 06/22/2021 9:05 PM Age: 70 years old Clinical indication: Injury or trauma; Fall; Blunt trauma TECHNIQUE: Imaging protocol: Computed tomography images of the cervical spine without contrast. Total images: 305 Radiation optimization: All CT scans at this facility use at least one of these dose optimization techniques: automated exposure control; mA and/or kV adjustment per patient size (includes targeted exams where dose is matched to clinical indication); or iterative reconstruction. COMPARISON: CT cervical spin wo con* [id number] 05/27/2021 5:23 AM RADIATION DOSE METRICS: Total DLP (mGy-cm): 806.47 FINDINGS: Bones/joints: No visible fracture, subluxation, or dislocation. Mild reversal of the normal cervical lordosis. Advanced degenerative disease and degenerative disc disease with spondylosis deformans C4/C5, C5/C6, and C6/C7. Facet arthrosis. Mild scoliosis. Degenerative disease of the joints of [place]. Discs/Spinal canal/Neural foramina: Degenerative disc disease with disc space height loss C4/5, C5/C6 and C6/C7. No visible herniated nucleus pulposis or significant posterior annular disc bulge that would result in significant/severe central canal stenosis or neural foramen stenosis visualized. Lungs: Limited assessment unremarkable. Soft tissues: Unremarkable. CT/CT cervical spin wo con* [id number] IMPRESSION: No visible fracture. Radiation Dose CTDIVOL = (mGy): DLP = 806.47 (mGy-cm)
--- NOTE | 2021-06-22 21:05 | CTR_ITS ---
PROCEDURE INFORMATION: Exam: CT Head Without Contrast Exam date and time: 06/22/2021 9:05 PM Age: 70 years old Clinical indication: Injury or trauma; Fall; Blunt trauma (contusions or hematomas) TECHNIQUE: Imaging protocol: Computed tomography of the head without contrast. Total images: 191 Radiation optimization: All CT scans at this facility use at least one of these dose optimization techniques: automated exposure control; mA and/or kV adjustment per patient size (includes targeted exams where dose is matched to clinical indication); or iterative reconstruction. COMPARISON: CT head wo con* [id number] 06/07/2021 8:58 PM RADIATION DOSE METRICS: Total DLP (mGy-cm): 1473.01 FINDINGS: Brain: No evidence of active or acute intracranial pathologic process, hemorrhage, or trauma. Moderate small vessel ischemic disease with senile periventricular leukomalacia. Cerebral arteriosclerosis. No mass effect. No midline shift. No hyperdense MCA or insular ribbon sign. Atrophic changes greater than that anticipated for patient's chronological age. Cerebral ventricles: No ventriculomegaly. Paranasal sinuses: Visualized sinuses are unremarkable. No fluid levels. Mastoid air cells: Visualized mastoid air cells are well aerated. Bones/joints: Unremarkable. No acute fracture. Soft tissues: Unremarkable. CT/CT head wo con* [id number] IMPRESSION: No evidence of active or acute intracranial pathologic process, hemorrhage, or trauma. Radiation Dose CTDIVOL = (mGy): DLP = 1473.01 (mGy-cm)
--- NOTE | 2021-06-22 21:11 | W.ED.FALL ---
HPI - Fall General: Chief Complaint: Fall Stated Complaint: FALL Time Seen by Provider: 06/22/21 21:07 Source: patient and EMS Mode of arrival: EMS Limitations: no limitations History of Present Illness: HPI Narrative: 70-year-old female who presents here by EMS with a fall at home just prior to arrival. She states that she slipped and fell and struck her head. She does have an abrasion to her forehead states she has a headache, neck pain and some slight left hip pain she rates pain a 3 out of 10. Patient did ambulate from cot to the bed. She denies any loss consciousness she has no altered mental status denies any other injuries. Associated symptoms-after fall: Reports neck pain; Denies abdominal pain, chest pain or headache(s) Review of Systems Const: Denies: fever(s), chills, body aches or change in appetite Eyes: Denies: blurry vision or eye discomfort ENMT: Denies: throat pain or dental pain Card: Denies: chest pain Resp: Denies: dyspnea GI: Denies: abdominal pain, nausea, vomiting or diarrhea : Denies: dysuria Musc: Reports: neck pain; Denies: back pain Skin/Breast: Denies: rash Neuro: Denies: headache(s) Psych: Denies: depression [place]/Lymph: Denies: easy bruising All/Imm: Denies: urticaria PFSH ED PFSH: Medical History Anxiety and depression CHF exacerbation Chronic knee pain Chronic low back pain COPD (chronic obstructive pulmonary disease) Oxygen dependent, 2 L at baseline Coronary artery disease COVID-14 August 2020 Fibromyalgia High risk medication use Hyperlipidemia Hypertension Hypothyroidism Immunization counseling Inflammatory arthritis Intermittent atrial fibrillation Because the patient history of frequent fall she was thought to be high risk for bleeding complications. So she is taking only the aspirin at this time. SHE HAS EASY BRUISING WELL Left renal mass Liver cirrhosis Low back pain of over 3 months duration Lung nodule Narrow complex tachycardia Osteoarthritis of knees, bilateral Poorly controlled diabetes mellitus Recurrent UTI Seronegative rheumatoid arthritis of both hands Unstable angina Urgency incontinence UTI (urinary tract infection) Surgical History History of cardiac cath History of cholecystectomy History of hysterectomy History of knee replacement History of thyroid surgery Family History Other CAD (coronary artery disease) Cancer Denies family history of Anesthesia complication Bleeding disorder Social History Smoking and tobacco status: former smoker Quit status (tobacco): has quit using tobacco Year quit tobacco: 2005 Second hand smoke exposure: No Alcohol intake: never Adopted: No Caregiver/support person: No Lives independently: No Household members: spouse Marital status: Current occupational status: retired History of recent travel: No Current gender identity: Female Female Reproductive History: Date of last menstrual period: 11/18/20 Physical Exam Const: COMMON NORMALS: no acute distress, patient oriented x3 and healthy appearing HENMT: COMMON NORMALS: normocephalic HEAD & SCALP: normocephalic OTHER: Abrasion to forehead Eye: COMMON NORMALS: Equal, round and reactive pupils present and EOMs intact bilaterally PUPIL: Yes Equal, round and reactive pupils present Neck/C-Spine: COMMON NORMALS: full ROM and supple Chest: COMMONS NORMALS: normal inspection of the chest and normal palpation of entire chest wall Resp: COMMON NORMALS: normal respiratory effort, No retractions, No use of accessory muscles and clear to auscultation bilaterally AUSCULTATION: clear to auscultation bilaterally Cardio: COMMON NORMALS: regular rate, regular rhythm and No murmurs present (Cardio) RATE: regular rate RHYTHM: regular rhythm GI: COMMON NORMALS: Normal to inspection, nondistended, normoactive bowel sounds present, Soft to palpation, non-tender and no masses PALPATION: Yes Soft to palpation Extremity: COMMON NORMALS: normal to inspection and full ROM OTHER: Slight tenderness to left hip patient was able to ambulate to bed Neuro: COMMON NORMALS: patient oriented x3, moves all extremities and no focal motor deficits Psych: COMMON NORMALS: mental status grossly normal, Normal thought process present and cooperative THOUGHT PROCESS: Normal thought process present Skin: COMMON NORMALS: no rashes or lesions noted and no wounds GENERAL SKIN EXAM: no rashes or lesions noted Course Vital Signs: Vital signs: Vital Signs Temperature 96.7 F L 06/22/21 21:14 Pulse Rate 67 06/22/21 21:14 Respiratory Rate 18 06/22/21 21:14 Blood Pressure 107/51 06/22/21 21:14 Pulse Oximetry 96 10/27/21 21:14 MDM - Fall MDM Narrative: Medical decision making narrative: Patient presents here with closed head injury from a fall patient's amatory is no signs of a hip fracture patient stable for discharge she is to follow-up PCP and return if worsening she understands agrees to plan. Lab Data: Labs: Lab Results 06/22/21 06/22/21 21:55 21:55 WBC 5.7 10^3/uL 10^3/ uL (4.0-10.0) RBC 2.83 10^6/uL L 10 ^6/uL (4.1-5.3) Hgb 9.3 g/dL L g/dL (11.5-15.3) Hct 28.6 % L % (37.0-47.0) MCV 101.1 fl H fl (81-99) MCH 32.9 pg pg (28.0-34.0) MCHC 32.5 g/dL g/dL (30.0-36.0) RDW 13.2 % % (12.1-15.1) Plt Count 175 10^3/cmm 10^3 /cmm (130-400) MPV 9.6 fL fL (7.4-10.4) Neut % (Auto) 78.7 % % Lymph % (Auto) 13.7 % % Morrison % (Auto) 5.1 % % Eos % (Auto) 1.4 % % Baso % (Auto) 0.7 % % Neut # (Auto) 4.49 10^3/uL 10^3 /uL (1.8-7.7) Lymph # (Auto) 0.8 10^3/uL 10^3/ uL (0.8-4.8) Morrison # (Auto) 0.3 10^3/uL 10^3/ uL (0.2-0.9) Eos # (Auto) 0.1 10^3/uL 10^3/ uL (0.0-0.8) Baso # (Auto) 0.0 10^3/uL 10^3/ uL (0.0-0.1) Nucleated RBC % (a uto) 0 % % Nucleated RBCs # 0.0 /100WBC /100W BC Sodium 137 mmol/L mmol/L (136-145) Potassium 3.3 mmol/L L mmol /L (3.5-5.1) Chloride 95 mmol/L L mmol/ L (98-107) Carbon Dioxide 33 mmol/L H mmol/ L (22-29) Anion Gap 12.3 (5-19) BUN 24 mg/dL H mg/dL (8-23) Creatinine 1.1 mg/dL H mg/dL (0.5-0.9) GFR Calculation Not Reportable Glucose 313 mg/dL H mg/dL (65-115) Calculated Osmolal ity 300 mOsm/kg H mOs m/kg (285-295) Calcium 9.2 mg/dL mg/dL (8.5-10.5) Total Bilirubin 0.3 mg/dL mg/dL (0.15-1.2) AST 29 U/L U/L (0-32) ALT 25 U/L U/L (0-33) Alkaline Phosphata se 109 IU/L H IU/L (35-105) Total Protein 5.8 g/dL L g/dL (6.6-8.7) Albumin 3.4 g/dL L g/dL (3.5-5.2) Globulin 2.4 g/dL g/dL (1.3-4.6) Imaging Data^: CT Head: Radiologist's impression: [address] [address] [address] Scan Report Signed Patient: Myesha Parker Unit #: [id number] : 1950 Age/Sex: 70 / F ADM Date: 06/22/21 Loc: ER Room/Bed: Attending Dr: Ordering Provider/Ordering MD: Karma Garner MD Date of Service: 06/22/21 Procedure(s): CT head wo con* [id number] Accession Number(s): [id number] Report Number: [id number] PROCEDURE INFORMATION: Exam: CT Head Without Contrast Exam date and time: 06/22/2021 9:05 PM Age: 70 years old Clinical indication: Injury or trauma; Fall; Blunt trauma (contusions or hematomas) TECHNIQUE: Imaging protocol: Computed tomography of the head without contrast. Total images: 191 Radiation optimization: All CT scans at this facility use at least one of these dose optimization techniques: automated exposure control; mA and/or kV adjustment per patient size (includes targeted exams where dose is matched to clinical indication); or iterative reconstruction. COMPARISON: CT head wo con* [id number] 06/07/2021 8:58 PM RADIATION DOSE METRICS: Total DLP (mGy-cm): 1473.01 FINDINGS: Brain: No evidence of active or acute intracranial pathologic process, hemorrhage, or trauma. Moderate small vessel ischemic disease with senile periventricular leukomalacia. Cerebral arteriosclerosis. No mass effect. No midline shift. No hyperdense MCA or insular ribbon sign. Atrophic changes greater than that anticipated for patient's chronological age. Cerebral ventricles: No ventriculomegaly. Paranasal sinuses: Visualized sinuses are unremarkable. No fluid levels. Mastoid air cells: Visualized mastoid air cells are well aerated. Bones/joints: Unremarkable. No acute fracture. Soft tissues: Unremarkable. CT/CT head wo con* [id number] IMPRESSION: No evidence of active or acute intracranial pathologic process, hemorrhage, or trauma. Radiation Dose CTDIVOL = (mGy): DLP = 1473.01 (mGy-cm) Dictated By: Jh Tucker Signed By: Jh Tucker Signed Date/Time: 06/22/212158 DD/ 04 Xray Ortho: Attestation: I personally reviewed and interpreted this imaging study as follows: Radiologist's impression: [address] [address] XRay Report Signed Patient: Myesha Parker Unit #: [id number] : 1950 Age/Sex: 70 / F ADM Date: 06/22/21 Loc: ER Room/Bed: Attending Dr: Ordering Provider/Ordering MD: Karma Garner MD Date of Service: 06/22/21 Procedure(s): XR hip LT 2-3V wo/w pel* [id number] Accession Number(s): [id number] Report Number: [id number] PROCEDURE INFORMATION: Exam: XR Left Hip Exam date and time: 06/22/2021 9:05 PM Age: 70 years old Clinical indication: Injury or trauma; Fall; Blunt trauma (contusions or hematomas); Left; Hip TECHNIQUE: Imaging protocol: XR Left hip. Views: 2 or 3 views hip with pelvis when performed. COMPARISON: CT abdomen pelvis w con* [id number] 06/20/2021 12:08 PM FINDINGS: Bones/joints: No acute fracture. No dislocation. Normal bone mineralization. Stable mild degenerative change at the left hip. Soft tissues: Soft tissue calcification superior to the greater trochanter are unchanged and may represent sequela of remote trauma or degenerative change. No soft tissue swelling. No radiopaque foreign body. Vasculature: Atherosclerotic changes in the visualized arteries. XR/XR hip LT 2-3V wo/w pel* [id number] IMPRESSION: 1. No acute fracture. MRI would be recommended if clinical concern for fracture persists. 2. Incidental/nonacute findings are listed in the report. Radiation Dose CTDIVOL = (mGy): DLP = (mGy-cm) Dictated By: Brenda Martin MD Signed By: Brenda Martin MD Signed Date/Time: 06/22/212199 DD/ 04 CT Abd/Pel: Radiologist's impression: [address] [place] [address] CT Scan Report Signed Patient: Myesha Parker Unit #: [id number] : 1950 Age/Sex: 70 / F ADM Date: 06/22/21 Loc: ER Room/Bed: Attending Dr: Ordering Provider/Ordering MD: Karma Garner MD Date of Service: 06/22/21 Procedure(s): CT pelvis wo con [id number] Accession Number(s): [id number] Report Number: [id number] PROCEDURE INFORMATION: Exam: CT Pelvis Without Contrast; Skeletal Exam date and time: 06/22/2021 9:29 PM Age: 70 years old Clinical indication: Injury or trauma; Fall; Dislocation; Left; Hip; Additional info: Fall L hip pain TECHNIQUE: Imaging protocol: Computed tomography images of the pelvis without contrast. Exam focused on the skeletal structures. Sagittal and coronal reformatted images were created and reviewed. Radiation optimization: All CT scans at this facility use at least one of these dose optimization techniques: automated exposure control; mA and/or kV adjustment per patient size (includes targeted exams where dose is matched to clinical indication); or iterative reconstruction. COMPARISON: CT abdomen pelvis w con* [id number] 06/20/2021 12:08 PM RADIATION DOSE METRICS: Total DLP (mGy-cm): 1024.59 FINDINGS: Stomach and bowel: The visualized bowel is unremarkable. Appendix: The appendix is visualized and is unremarkable. No findings to suggest acute appendicitis. Bladder: Diffuse, mild wall thickening of the bladder. Reproductive: Patient has had a previous hysterectomy. The ovaries are not definitely visualized, not an expected in a postmenopausal female. This may be due to ovarian atrophy. Alternatively, the patient may have had a previous bilateral oophorectomy. Vasculature: Atherosclerotic changes in the visualized arteries. Bones/joints: Mild degenerative changes at both the right and left hips. Mild degenerative changes of the right and left sacroiliac joints. Multilevel degenerative changes of varying severity in the visualized spine. Calcification superior to the left greater trochanter that may represent sequela of remote trauma or degenerative change. No acute fracture. No dislocation. Normal bone mineralization. Soft tissues: No soft tissue swelling. No radiopaque foreign body. CT/CT pelvis wo con [id number] IMPRESSION: 1. No acute fracture. 2. Diffuse, mild wall thickening of the bladder. In the correct clinical setting, this may suggest cystitis. Recommend correlation with laboratory findings. Alternatively, this may be secondary to chronic outlet obstruction. 3. Incidental/nonacute findings are listed in the report. Radiation Dose CTDIVOL = (mGy): DLP = 1024.59 (mGy-cm) Dictated By: Brenda Martin MD Signed By: Brenda Martin MD Signed Date/Time: 06/22/212199 DD/ 28 Discharge Plan Discharge Patient Disposition: Home Clinical Impression: Fall, CHI (closed head injury) Condition: Stable Prescriptions: No Action potassium chloride 20 mEq tablet extended release 20 meq PO BID@,17 RF: 0 Hold Instructions: Resume on 06/18/21. aripiprazole [Abilify] 5 mg tablet 5 mg PO DAILY@08 Qty: 30 RF: 2 duloxetine [Cymbalta] 30 mg capsule,delayed release(DR/EC) 30 mg PO DAILY@08 Qty: 30 RF: 2 Humira Pen 40 mg/0.8 mL pen injector kit 40 mg SUBCUT Q14D Qty: 2 RF: 3 folic acid 1 mg tablet 1 mg PO DAILY@08 Qty: 90 RF: 1 prednisone 2.5 mg tablet 2.5 mg PO DAILY Qty: 90 RF: 1 sulfasalazine 500 mg tablet 500 mg PO BID@08,17 Qty: 60 RF: 3 nitroglycerin [Nitrostat] 0.4 mg tablet, sublingual 0.4 mg SUBLINGUAL Q5M PRN (Reason: Chest Pain) Qty: 30 RF: 3 furosemide 40 mg tablet 40 mg PO DAILY Qty: 90 RF: 3 Hold Instructions: Resume on 06/18/21. hydrocodone-acetaminophen 7.5-325 mg tablet 1 tab PO TID PRN (Reason: pain) 30 Days Qty: 90 RF: 0 tramadol 50 mg tablet 100 mg PO TID PRN (Reason: pain) Qty: 180 RF: 1 tizanidine 4 mg tablet 4 mg PO TID PRN (Reason: muscle spasticity) 30 Days Qty: 90 RF: 1 atorvastatin [Lipitor] 40 mg Tablet 40 mg PO BEDTIME RF: 0 acetaminophen [Arthritis Pain Reliever] 650 mg Tablet Extended Release 650 mg PO PRN RF: 0 pyridoxine (vitamin B6) [Vitamin B-6] 100 mg Tablet 100 mg PO DAILY@08 RF: 0 cholecalciferol (vitamin D3) [Vitamin D3] 25 mcg (1,000 unit) Tablet 2,000 unit PO DAILY@08 RF: 0 albuterol sulfate 2.5 mg /3 mL (0.083 %) Solution For Nebulization 2.5 mg inhalation TID PRN (Reason: Shortness Of Breath) RF: 0 aspirin 325 mg Tablet 325 mg PO BEDTIME@1999 RF: 0 Hold Instructions: Resume on 10/18/20. Novolin 70/30 U-100 Insulin 100 unit/mL (70-30) suspension See Rx Instructions .ROUTE .COMPLEX RF: 0 hydrocortisone 2.5 % cream See Rx Instructions .ROUTE .COMPLEX RF: 0 albuterol sulfate 90 mcg/actuation Hfa Aerosol Inhaler 2 puff INHALATION Q6H PRN (Reason: Shortness Of Breath) RF: 0 docusate sodium [Stool Softener] 250 mg Capsule 250 mg PO BID PRN (Reason: Constipation) RF: 0 levothyroxine [Euthyrox] 175 mcg tablet 175 mcg PO DAILY RF: 0 cyanocobalamin (vitamin B-12) [Vitamin B-12] 500 mcg Tablet 500 mcg PO DAILY RF: 0 chlorpheniramine maleate [ChlorTabs] 4 mg Tablet See Rx Instructions .ROUTE .COMPLEX RF: 0 prednisolone acetate 1 % Drops,Suspension 1 drp ophthalmic (eye) PRN RF: 0 diphenhydramine HCl [Benadryl] 25 mg Capsule See Rx Instructions .ROUTE .COMPLEX RF: 0 riboflavin (vitamin B2) [Vitamin B-2] 50 mg Tablet 50 mg PO DAILY Qty: 0 RF: 0 methotrexate sodium 2.5 mg tablet 7.5 mg PO Q7D RF: 0 midodrine 5 mg Tablet 5 mg PO TID 30 Days Qty: 90 RF: 3 metoprolol tartrate 100 mg tablet 50 mg PO Q12H 30 Days Qty: 30 RF: 2 insulin lispro [Admelog U-100 Insulin lispro] 100 unit/mL Solution See Rx Instructions .ROUTE .COMPLEX RF: 0 pantoprazole [Protonix] 40 mg tablet,delayed release (DR/EC) 40 mg PO BID@08,17 RF: 0 digoxin 125 mcg (0.125 mg) tablet See Rx Instructions .ROUTE .COMPLEX RF: 0 duloxetine 60 mg capsule,delayed release(DR/EC) 60 mg PO DAILY RF: 0 ferrous gluconate 324 mg (37.5 mg iron) tablet See Rx Instructions .ROUTE .COMPLEX RF: 0 buspirone 10 mg tablet 10 mg PO BID RF: 0 magnesium L-lactate 84 mg tablet extended release 84 mg PO BID RF: 0 Discharge Orders: Discharge ED (Routine); Ordered 06/22/21 Ordered By: Karma Garner Referrals: Ami Perez, [Primary Care Provider] - Discharge Diet: Advance as tolerated Discharge Activity: Resume usual activity Patient Instructions: Fall Prevention for Older Adults (ED) Coding Level of Care Code ED [facility] Exam Comprehensive
[2021-06-22 21:14] VITALS: BP 107/51; PULSE 67; RESP 18; TEMP 35.9; O2SAT 96; BMI 36.6
--- NOTE | 2021-06-22 21:29 | CTR_ITS ---
PROCEDURE INFORMATION: Exam: CT Pelvis Without Contrast; Skeletal Exam date and time: 06/22/2021 9:29 PM Age: 70 years old Clinical indication: Injury or trauma; Fall; Dislocation; Left; Hip; Additional info: Fall L hip pain TECHNIQUE: Imaging protocol: Computed tomography images of the pelvis without contrast. Exam focused on the skeletal structures. Sagittal and coronal reformatted images were created and reviewed. Radiation optimization: All CT scans at this facility use at least one of these dose optimization techniques: automated exposure control; mA and/or kV adjustment per patient size (includes targeted exams where dose is matched to clinical indication); or iterative reconstruction. COMPARISON: CT abdomen pelvis w con* [id number] 06/20/2021 12:08 PM RADIATION DOSE METRICS: Total DLP (mGy-cm): 1024.59 FINDINGS: Stomach and bowel: The visualized bowel is unremarkable. Appendix: The appendix is visualized and is unremarkable. No findings to suggest acute appendicitis. Bladder: Diffuse, mild wall thickening of the bladder. Reproductive: Patient has had a previous hysterectomy. The ovaries are not definitely visualized, not an expected in a postmenopausal female. This may be due to ovarian atrophy. Alternatively, the patient may have had a previous bilateral oophorectomy. Vasculature: Atherosclerotic changes in the visualized arteries. Bones/joints: Mild degenerative changes at both the right and left hips. Mild degenerative changes of the right and left sacroiliac joints. Multilevel degenerative changes of varying severity in the visualized spine. Calcification superior to the left greater trochanter that may represent sequela of remote trauma or degenerative change. No acute fracture. No dislocation. Normal bone mineralization. Soft tissues: No soft tissue swelling. No radiopaque foreign body. CT/CT pelvis con [id number] IMPRESSION: 1. No acute fracture. 2. Diffuse, mild wall thickening of the bladder. In the correct clinical setting, this may suggest cystitis. Recommend correlation with laboratory findings. Alternatively, this may be secondary to chronic outlet obstruction. 3. Incidental/nonacute findings are listed in the report. Radiation Dose CTDIVOL = (mGy): DLP = 1024.59 (mGy-cm)
[2021-06-22 22:06] LABS: Basophils % 0.7 %; Eosinophils # 0.1 10^3/uL (0.0-0.8); Eosinophils % 1.4 %; Hematocrit 28.6 % (37.0-47.0); Hemoglobin 9.3 g/dL (11.5-15.3); Lymphocytes # 0.8 10^3/uL (0.8-4.8); Lymphocytes % 13.7 %; Mean Corpuscular HGB Conc 32.5 g/dL (30.0-36.0); Mean Corpuscular Hemoglobin 32.9 pg (28.0-34.0); Mean Corpuscular Volume 101.1 fl (81-99); Mean Platelet Volume 9.6 fL (7.4-10.4); Monocytes # 0.3 10^3/uL (0.2-0.9); Monocytes % 5.1 %; Neutrophils # 4.49 10^3/uL (1.8-7.7); Neutrophils % 78.7 %; Nucleated Red Blood Cells % 0 %; Platelet Count 175 10^3/cmm (130-400); Red Blood Count 2.83 10^6/uL (4.1-5.3); Red Cell Distribution Width 13.2 % (12.1-15.1); White Blood Count 5.7 10^3/uL (4.0-10.0)
[2021-06-22 22:33] LABS: Alanine Aminotransferase 25 U/L (0-33); Albumin Level 3.4 g/dL (3.5-5.2); Alkaline Phosphatase 109 IU/L (35-105); Anion Gap 12.3 (5-19); Aspartate Amino Transferase 29 U/L (0-32); Blood Urea Nitrogen 24 mg/dL (8-23); Calcium 9.2 mg/dL (8.5-10.5); Carbon Dioxide 33 mmol/L (22-29); Chloride 95 mmol/L (98-107); Globulin 2.4 g/dL (1.3-4.6); Glucose 313 mg/dL (65-115); Osmolality Calculated 300 mOsm/kg (285-295); Potassium 3.3 mmol/L (3.5-5.1); Sodium 137 mmol/L (136-145); Total Bilirubin 0.3 mg/dL (0.15-1.2); Total Protein 5.8 g/dL (6.6-8.7)
[2021-06-22] MEDS: sodium chloride 0.9% 1,000 ML 999 ML IV (22:59)
[2021-06-22 23:22] VITALS: BP 110/64; PULSE 69; RESP 16; O2SAT 96
[2021-06-23 00:23] VITALS: BP 130/68; PULSE 59; RESP 21; O2SAT 96
== END 2021-06-23 00:26 | disposition home or self-care (01) ==
PROVIDERS: Emergency Provider Emergency Medicine; PCP Internal Medicine
DX: S09.90XA Unspecified injury of head, initial encounter (principal); W18.30XA Fall on same level, unspecified, initial encounter; I50.9 Heart failure, unspecified; J44.9 Chronic obstructive pulmonary disease, unspecified; Z87.891 Personal history of nicotine dependence; Z91.81 History of falling; Z79.82 Long term (current) use of aspirin; I25.10 Atherosclerotic heart disease of native coronary artery without angina pectoris; I10 Essential (primary) hypertension; E78.5 Hyperlipidemia, unspecified
CPT/HCPCS: 70450; 72125; 72192; 73502; 80053; 85025; 96360; 99283; J7030

== ENCOUNTER → 2021-06-28 08:29 | Outpatient (BNVA) | payer MEDICARE, SELFPAY | PROVIDERS: PCP Internal Medicine; Visit Provider Nurse Practitioner Psychiatric/Mental Health | DX: F43.12 Post-traumatic stress disorder, chronic (principal); F33.41 Major depressive disorder, recurrent, in partial remission; G89.29 Other chronic pain; M25.569 Pain in unspecified knee; Z79.899 Other long term (current) drug therapy | CPT/HCPCS: 99214 ==

== ENCOUNTER 2021-06-30 04:38 | Inpatient (IN) | payer MEDICARE, SELFPAY ==
[2021-06-30] VITALS (9 sets, daily range): BP systolic 75–168; BP diastolic 47–91; PULSE 56–89; RESP 17–19; TEMP 36.8–37.1; O2SAT 90–99; BMI 36.6
--- NOTE | 2021-06-30 04:42 | XRR_ITS ---
PROCEDURE INFORMATION: Exam: XR Chest Exam date and time: 06/30/2021 4:42 AM Age: 70 years old Clinical indication: Other: Hypotensive; Prior surgery; Surgery type: Thyroid; Patient HX: General weakness with hypotension TECHNIQUE: Imaging protocol: XR of the chest. Views: 1 view. COMPARISON: CR (CHEST, ) 06/07/2021 6:21 PM FINDINGS: Lungs: There are low lung volumes. Otherwise, the lungs are clear. Pleural spaces: Unremarkable. No pleural effusion. No pneumothorax. Heart/Mediastinum: Unremarkable. No cardiomegaly. Bones/joints: Unremarkable. XR/XR chest 1V portable [id number] IMPRESSION: There are low lung volumes. Otherwise, the lungs are clear. Radiation Dose CTDIVOL = (mGy): DLP = (mGy-cm)
--- NOTE | 2021-06-30 04:43 | ECG_ITS ---
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 Measurements Intervals [place] Rate: 77 P: VT: QRS: -66 QRSD: 153 T: 58 QT: 448 QTc: 510 Interpretive Statements ATRIAL FIBRILLATION RIGHT BUNDLE BRANCH BLOCK [120+ ms QRS DURATION, UPRIGHT V1, 40+ ms S IN I/aVL/V4/V5/V6] LEFT ANTERIOR FASCICULAR BLOCK [QRS AXIS <= -45, QR IN I, RS IN II] VOLTAGE CRITERIA FOR LVH [MEETS CRITERIA IN ONE OF: R(aVL), S(V1), R(V5), R(V5/V6)+S(V1)] ST DEPRESSION, CONSIDER SUBENDOCARDIAL INJURY [0.1+ mV ST DEPRESSION] Compared to ECG 06/20/2021 12:45:59 Left ventricular hypertrophy now present ST (T wave) deviation now present Myocardial infarct finding no longer present Electronically Signed On 06-30-2021 17:08:19 CDT by Victoriano White M.D. [email or web address] Companygrand lake joint [email or web address]/[id number] [email or web address]
--- NOTE | 2021-06-30 04:43 | W.ED.WEAKNES ---
HPI - Weakness General: Chief complaint: General Medical Stated complaint: LOW BLOOD PRESSURE Time Seen by Provider: 06/30/21 04:39 Source: patient and EMS Mode of arrival: EMS Limitations: no limitations History of Present Illness: HPI Narrative: 70-year-old female who is well-known to the ER has a long history of weakness and multiple falls she states she had went to the bathroom tonight and could not get off the toilet. She states she is just had increasing weakness and is unable to stand at this point. Denies any pain anywhere she did have a fall a few days ago and had imaging that was all negative denies headache denies chest pain denies any fevers. Associated symptoms: Denies chest pain, chills, dysuria, easy bruising, fever(s), nausea or vomiting Review of Systems Const: Denies: fever(s), chills, body aches or change in appetite Eyes: Denies: blurry vision or eye discomfort ENMT: Denies: throat pain or dental pain Card: Denies: chest pain Resp: Denies: dyspnea GI: Denies: abdominal pain, nausea, vomiting or diarrhea : Denies: dysuria Musc: Denies: neck pain or back pain Skin/Breast: Denies: rash Neuro: Reports: weakness in extremities Psych: Denies: depression [place]/Lymph: Denies: easy bruising All/Imm: Denies: urticaria PFSH ED PFSH: Medical History Anxiety and depression CHF exacerbation Chronic knee pain Chronic low back pain COPD (chronic obstructive pulmonary disease) Oxygen dependent, 2 L at baseline Coronary artery disease COVID-14 August 2020 Fibromyalgia High risk medication use Hyperlipidemia Hypertension Hypothyroidism Immunization counseling Inflammatory arthritis Intermittent atrial fibrillation Because the patient history of frequent fall she was thought to be high risk for bleeding complications. So she is taking only the aspirin at this time. SHE HAS EASY BRUISING WELL Left renal mass Liver cirrhosis Low back pain of over 3 months duration Lung nodule Narrow complex tachycardia Osteoarthritis of knees, bilateral Poorly controlled diabetes mellitus Recurrent UTI Seronegative rheumatoid arthritis of both hands Unstable angina Urgency incontinence UTI (urinary tract infection) Surgical History History of cardiac cath History of cholecystectomy History of hysterectomy History of knee replacement History of thyroid surgery Family History Other CAD (coronary artery disease) Cancer Denies family history of Anesthesia complication Bleeding disorder Social History Smoking and tobacco status: former smoker Quit status (tobacco): has quit using tobacco Year quit tobacco: 2005 Second hand smoke exposure: No Alcohol intake: never Adopted: No Caregiver/support person: No Lives independently: No Household members: spouse Marital status: Current occupational status: retired History of recent travel: No Current gender identity: Female Female Reproductive History: Date of last menstrual period: 11/18/20 Physical Exam Const: COMMON NORMALS: no acute distress and patient oriented x3 GENERAL APPEARANCE: frail appearing HENMT: COMMON NORMALS: normocephalic and atraumatic HEAD & SCALP: normocephalic and atraumatic Eye: COMMON NORMALS: Equal, round and reactive pupils present and EOMs intact bilaterally PUPIL: Yes Equal, round and reactive pupils present Neck/C-Spine: COMMON NORMALS: full ROM and supple Chest: COMMONS NORMALS: normal inspection of the chest and normal palpation of entire chest wall Resp: COMMON NORMALS: normal respiratory effort, No retractions, No use of accessory muscles and clear to auscultation bilaterally AUSCULTATION: clear to auscultation bilaterally Cardio: COMMON NORMALS: regular rate, regular rhythm and No murmurs present (Cardio) RATE: regular rate RHYTHM: regular rhythm GI: COMMON NORMALS: Normal to inspection, nondistended, normoactive bowel sounds present, Soft to palpation, non-tender and no masses PALPATION: Yes Soft to palpation Extremity: COMMON NORMALS: normal to inspection and full ROM Neuro: COMMON NORMALS: patient oriented x3, moves all extremities and no focal motor deficits Psych: COMMON NORMALS: mental status grossly normal, Normal thought process present and cooperative THOUGHT PROCESS: Normal thought process present Skin: COMMON NORMALS: no rashes or lesions noted and no wounds GENERAL SKIN EXAM: no rashes or lesions noted Course Vital Signs: Vital signs: Vital Signs Temperature 98.3 F 06/30/21 15:54 Pulse Rate 84 06/30/21 15:54 Respiratory Rate 17 06/30/21 15:54 Blood Pressure 168/68 06/30/21 15:54 Pulse Oximetry 98 06/30/21 15:54 MDM - Weakness MDM Narrative: Medical decision making narrative: Maribell presents here with generalized weakness she has had multiple falls lately does have orthostatic hypotension here as well. Spoke to hospitalist will admit she is having difficulty walking here due to extreme weakness no signs of infection. Lab Data: Labs: Lab Results 06/30/21 06/30/21 06/30/21 04:40 04:44 04:44 WBC 7.0 10^3/uL 10^3/ uL (4.0-10.0) RBC 3.04 10^6/uL L 10 ^6/uL (4.1-5.3) Hgb 10.0 g/dL L g/dL (11.5-15.3) Hct 30.0 % L % (37.0-47.0) MCV 98.7 fl fl (81-99) MCH 32.9 pg pg (28.0-34.0) MCHC 33.3 g/dL g/dL (30.0-36.0) RDW 13.6 % % (12.1-15.1) Plt Count 229 10^3/cmm 10^3 /cmm (130-400) MPV 10.0 fL fL (7.4-10.4) Neut % (Auto) 67.3 % % Lymph % (Auto) 21.1 % % [place] % (Auto) 8.5 % % Eos % (Auto) 1.6 % % Baso % (Auto) 0.9 % % Neut # (Auto) 4.71 10^3/uL 10^3 /uL (1.8-7.7) Lymph # (Auto) 1.5 10^3/uL 10^3/ uL (0.8-4.8) [place] # (Auto) 0.6 10^3/uL 10^3/ uL (0.2-0.9) Eos # (Auto) 0.1 10^3/uL 10^3/ uL (0.0-0.8) Baso # (Auto) 0.1 10^3/uL 10^3/ uL (0.0-0.1) Nucleated RBC % (a uto) 0 % % Nucleated RBCs # 0.0 /100WBC /100W BC Sodium 139 mmol/L mmol/L (136-145) Potassium 3.8 mmol/L mmol/L (3.5-5.1) Chloride 93 mmol/L L mmol/ L (98-107) Carbon Dioxide 33 mmol/L H mmol/ L (22-29) Anion Gap 16.8 (5-19) BUN 23 mg/dL mg/dL (8-23) Creatinine 1.1 mg/dL H mg/dL (0.5-0.9) GFR Calculation Not Reportable Glucose 278 mg/dL H mg/dL (65-115) Calculated Osmolal ity 302 mOsm/kg H mOs m/kg (285-295) Lactic Acid Calcium 10.0 mg/dL mg/dL (8.5-10.5) Total Bilirubin 0.5 mg/dL mg/dL (0.15-1.2) AST 39 U/L H U/L (0-32) ALT 24 U/L U/L (0-33) Alkaline Phosphata se 99 IU/L IU/L (35-105) Troponin T Baselin e 38 ng/L H ng/L (0-10) Total Protein 6.3 g/dL L g/dL (6.6-8.7) Albumin 3.6 g/dL g/dL (3.5-5.2) Globulin 2.7 g/dL g/dL (1.3-4.6) TSH Random Cortisol Urine Color Urine Appearance Urine pH Ur Specific Gravit y Urine Protein Urine Glucose (UA) Urine Ketones Urine Blood Urine Nitrate Urine Bilirubin Urine Urobilinogen Ur Leukocyte Dorota ase Urine RBC Urine WBC Ur Squamous Epith Cells Amorphous Sediment Urine Bacteria Urine Mucus 06/30/21 06/30/21 06/30/21 04:50 04:50 05:11 WBC RBC Hgb Hct MCV MCH MCHC RDW Plt Count MPV Neut % (Auto) Lymph % (Auto) [place] % (Auto) Eos % (Auto) Baso % (Auto) Neut # (Auto) Lymph # (Auto) [place] # (Auto) Eos # (Auto) Baso # (Auto) Nucleated RBC % (a uto) Nucleated RBCs # Sodium Potassium Chloride Carbon Dioxide Anion Gap BUN Creatinine GFR Calculation Glucose Calculated Osmolal ity Lactic Acid Calcium Total Bilirubin AST ALT Alkaline Phosphata se Troponin T Baselin e Total Protein Albumin Globulin TSH 0.59 uIU/mL uIU/m L (0.27-4.20) Random Cortisol 16.26 ug/dL ug/dL (2.47-19.5) Urine Color Yellow (Yellow) Urine Appearance Cloudy (CLEAR) Urine pH 5 (5-7) Ur Specific Gravit y 1.015 (1.005-1.030) Urine Protein 1+ H (Negative) Urine Glucose (UA) 1+ H (Normal) Urine Ketones Negative (Negative) Urine Blood Neg (Negative) Urine Nitrate Negative (Negative) Urine Bilirubin 1+ H (Negative) Urine Urobilinogen Norm mg/dL mg/dL (Negative) Ur Leukocyte Dorota ase 2+ H (Negative) Urine RBC None /hpf /hpf (0-2) Urine WBC >100 /hpf H /hpf (0-5) Ur Squamous Epith Cells 0-4 /hpf H /hpf (0-5) Amorphous Sediment Not Reportable Urine Bacteria 1+ /hpf H /hpf (NONE) Urine Mucus Trace /hpf /hpf 06/30/21 05:57 WBC RBC Hgb Hct MCV MCH MCHC RDW Plt Count MPV Neut % (Auto) Lymph % (Auto) [place] % (Auto) Eos % (Auto) Baso % (Auto) Neut # (Auto) Lymph # (Auto) [place] # (Auto) Eos # (Auto) Baso # (Auto) Nucleated RBC % (a uto) Nucleated RBCs # Sodium Potassium Chloride Carbon Dioxide Anion Gap BUN Creatinine GFR Calculation Glucose Calculated Osmolal ity Lactic Acid 2.9 mmol/L H mmol /L (0.5-2.2) Calcium Total Bilirubin AST ALT Alkaline Phosphata se Troponin T Baselin e Total Protein Albumin Globulin TSH Random Cortisol Urine Color Urine Appearance Urine pH Ur Specific Gravit y Urine Protein Urine Glucose (UA) Urine Ketones Urine Blood Urine Nitrate Urine Bilirubin Urine Urobilinogen Ur Leukocyte Dorota ase Urine RBC Urine WBC Ur Squamous Epith Cells Amorphous Sediment Urine Bacteria Urine Mucus EKG Data^: EKG 1: Attestation: I personally reviewed and interpreted this EKG as follows: EKG interpretation date: 06/30/21 EKG interpretation time: 04:51 Interpretation: afib hr [address] or t wave abnormalities qrs 153 qrs 480 Discharge Plan Discharge Patient Disposition: Admitted As Inpatient Admit Provider: Joey Whitmore Clinical Impression: Orthostatic hypotension, Weakness, Multiple falls Condition: Stable Coding Level of Care Code ED Screwhead Polisher for Chg Fwd Exam Comprehensive
[2021-06-30 04:59] LABS: Basophils # 0.1 10^3/uL (0.0-0.1); Basophils % 0.9 %; Eosinophils # 0.1 10^3/uL (0.0-0.8); Eosinophils % 1.6 %; Lymphocytes # 1.5 10^3/uL (0.8-4.8); Lymphocytes % 21.1 %; Mean Corpuscular HGB Conc 33.3 g/dL (30.0-36.0); Mean Corpuscular Hemoglobin 32.9 pg (28.0-34.0); Mean Corpuscular Volume 98.7 fl (81-99); Monocytes # 0.6 10^3/uL (0.2-0.9); Monocytes % 8.5 %; Neutrophils # 4.71 10^3/uL (1.8-7.7); Neutrophils % 67.3 %; Nucleated Red Blood Cells % 0 %; Platelet Count 229 10^3/cmm (130-400); Red Blood Count 3.04 10^6/uL (4.1-5.3); Red Cell Distribution Width 13.6 % (12.1-15.1)
[2021-06-30 05:14] LABS: Troponin(5th) Baseline 38 ng/L (0-10)
[2021-06-30 05:17] LABS: Alanine Aminotransferase 24 U/L (0-33); Albumin Level 3.6 g/dL (3.5-5.2); Alkaline Phosphatase 99 IU/L (35-105); Blood Urea Nitrogen 23 mg/dL (8-23); Carbon Dioxide 33 mmol/L (22-29); Chloride 93 mmol/L (98-107); Globulin 2.7 g/dL (1.3-4.6); Glucose 278 mg/dL (65-115); Osmolality Calculated 302 mOsm/kg (285-295); Sodium 139 mmol/L (136-145); Total Bilirubin 0.5 mg/dL (0.15-1.2); Total Protein 6.3 g/dL (6.6-8.7)
[2021-06-30 05:26] LABS: Anion Gap 16.8 (5-19); Aspartate Amino Transferase 39 U/L (0-32); Potassium 3.8 mmol/L (3.5-5.1)
--- NOTE | 2021-06-30 06:07 | CTR_ITS ---
PROCEDURE INFORMATION: Exam: CT Cervical Spine Without Contrast Exam date and time: 06/30/2021 6:07 AM Age: 70 years old Clinical indication: Prior surgery; Surgery type: Thyroidectomy; Patient HX: Patient C/O neck pain. History of innumerable visits and CT examinations due to falls. ; Additional info: Fall, neck pain TECHNIQUE: Imaging protocol: Computed tomography images of the cervical spine without contrast. Radiation optimization: All CT scans at this facility use at least one of these dose optimization techniques: automated exposure control; mA and/or kV adjustment per patient size (includes targeted exams where dose is matched to clinical indication); or iterative reconstruction. COMPARISON: CT cervical spin wo con* [id number] 06/22/2021 9:35 PM RADIATION DOSE METRICS: Total DLP (mGy-cm): 812.51 FINDINGS: Bones/joints: Trace levocurvature of the cervical spine is present. There is straightening of the normal cervical lordosis with slight reversal at C5-C6, and trace anterolisthesis of C3. No fracture seen. Vertebral body heights are well maintained. Discs/Spinal canal/Neural foramina: There is multilevel degenerative changes, manifested by intervertebral disc space narrowing, endplate osteophytes and facet joint arthrosis. No significant disc protrusion identified. [id number] neural foraminal narrowing at C3-C4 on the right noted. No severe central spinal canal stenosis. Lungs: Lung apices are normal. Soft tissues: Unremarkable. CT/CT cervical spin wo con* [id number] IMPRESSION: 1. No acute injury. 2. Degenerative changes of the cervical. Radiation Dose CTDIVOL = (mGy): DLP = 812.51 (mGy-cm)
--- NOTE | 2021-06-30 06:14 | P.HP_ITS ---
Providers/Chief Complaint Admitting Physician: Joey Whitmore Primary Care Provider: Ami Perez DO Chief Complaint: LOW BLOOD PRESSURE History of Present Illness Myesha Parker is a 70 year old female with past medical history of atrial fibrillation, diastolic congestive heart failure, coronary artery disease, hypertension, CKD, COPD, hypothyroidism, generalized deconditioning and debilitated state, recurrent orthostatic hypotension who is presenting to emergency room with complaints of recurrent falls and chronic dizziness. Description of her symptoms indicates that her symptoms are orthostatic in nature. Last night again the patient developed severe lightheadedness while trying to stand up. Due to generalized weakness she collapsed. Likely she was held and supported by her and did not sustain any significant injuries. However she has multiple bruises on her body from the previous falls. In the emergency room her blood pressure initially was 127/91. It dropped to 80s standing. She received a bolus of normal saline and she reports feeling better now. She reports that her medications were recently adjusted due to orthostatic hypotension. Amlodipine was discontinued. The dose of metoprolol was decreased. Also the dose of the Synthroid was recently decreased. However she was having the symptoms before that. She denies any diarrhea or vomiting. However she reports not drinking enough fluids. She reports feeling thirsty. (Her Lasix was discontinued recently). She reports dysuria. The patient reports a popping sound in the neck and following neck pain after her fall today. She denies any shortness of breath, cough, palpitations. No headache. She reports pain in the chest from the previous bruises. Review of Systems General: Reports: 10 or more systems reviewed and unremarkable except in HPI and below Medications/Allergies Home Medications Medication Instructions Recorded Confirmed Last Taken Type potassium chloride 20 mEq 20 meq PO BID@09/09/19 06/21/21 05/06/21 History tablet,extended release acetaminophen [Arthritis Pain 650 mg PO PRN 10/12/19 06/27/21 05/06/21 History Reliever] atorvastatin [Lipitor] 40 mg PO BEDTIME 10/12/19 06/27/21 05/05/21 History cholecalciferol (vitamin D3) 2,000 unit PO DAILY@10/12/19 06/27/21 05/06/21 History [Vitamin D3] pyridoxine (vitamin B6) [Vitamin 100 mg PO DAILY@10/12/19 06/27/21 05/06/21 History B-6] insulin lispro [Admelog U-100 See Rx Instructions .ROUTE .COMPLEX 12/31/19 06/27/21 05/05/21 History Insulin lispro] pantoprazole [Protonix] 40 mg PO BID@,08/07/20 06/27/21 05/06/21 History Novolin 70/30 U-100 Insulin See Rx Instructions .ROUTE .COMPLEX 10/08/20 06/27/21 05/05/21 History albuterol sulfate 2.5 mg INHALATION TID PRN 10/08/20 06/27/21 Unknown History aspirin 325 mg PO BEDTIME@199910/08/20 06/27/21 05/05/21 History hydrocortisone See Rx Instructions .ROUTE .COMPLEX 10/08/20 06/27/21 05/06/21 History digoxin 125 mcg (0.125 mg) tablet See Rx Instructions .ROUTE 11/10/20 06/27/21 05/06/21 History .COMPLEX tab furosemide 40 mg tablet 40 mg PO DAILY #90 tab 02/08/21 06/21/21 05/06/21 Rx nitroglycerin 0.4 mg sublingual 0.4 mg SUBLINGUAL Q5M PRN #30 tab 02/08/21 06/27/21 Unknown Rx tablet albuterol sulfate 2 puff INHALATION Q6H PRN 03/16/21 06/27/21 Unknown History chlorpheniramine maleate See Rx Instructions .ROUTE .COMPLEX 03/16/21 06/27/21 05/06/21 History [ChlorTabs] cyanocobalamin (vitamin B-12) 500 mcg PO DAILY 03/16/21 06/27/21 05/06/21 History [Vitamin B-12] diphenhydramine HCl [Benadryl] See Rx Instructions .ROUTE .COMPLEX 03/16/21 06/27/21 05/05/21 History docusate sodium [Stool Softener] 250 mg PO BID PRN 03/16/21 06/27/21 Unknown History prednisolone acetate 1 drp OPHTHALMIC (EYE) PRN 03/16/21 06/27/21 05/06/21 History riboflavin (vitamin B2) [Vitamin 50 mg PO DAILY #0 03/16/21 06/27/21 05/06/21 History B-2] adalimumab 40 mg/0.8 mL 40 mg SUBCUT Q14D #2 ea 04/25/21 06/27/21 Unknown Rx subcutaneous pen kit folic acid 1 mg tablet 1 mg PO DAILY@08 #90 tab 04/25/21 06/27/21 05/06/21 Rx prednisone 2.5 mg tablet 2.5 mg PO DAILY #90 tab 04/25/21 06/27/21 05/06/21 Rx sulfasalazine 500 mg tablet 500 mg PO BID@,17 #60 tab 04/25/21 06/27/21 05/06/21 Rx ferrous gluconate See Rx Instructions .ROUTE .COMPLEX 05/06/21 06/27/21 05/06/21 History magnesium L-lactate 84 mg PO BID 05/06/21 06/27/21 05/06/21 History methotrexate sodium 7.5 mg PO Q7D 06/08/21 06/27/21 Unknown History metoprolol tartrate 50 mg PO Q12H 30 Days #30 tab 06/11/21 06/27/21 Unknown Rx midodrine 5 mg PO TID 30 Days #90 tab 06/11/21 06/27/21 Unknown Rx hydrocodone 7.5 mg-acetaminophen 1 tab PO TID PRN 30 Days #90 tab 06/21/21 06/27/21 Unknown Rx 325 mg tablet tizanidine 4 mg tablet 4 mg PO TID PRN 30 Days #90 tab 06/21/21 06/27/21 Unknown Rx tramadol 50 mg tablet 100 mg PO TID PRN #180 tab 06/21/21 06/27/21 Unknown Rx calcium carbonate 600 mg calcium 600 mg PO DAILY 06/27/21 06/27/21 Unknown History (1,500 mg) tablet levothyroxine 150 mcg tablet 150 mcg PO DAILY 06/27/21 06/27/21 Unknown History methylsulfonylmethane 1,000 mg 1,000 mg PO BID 06/27/21 06/27/21 Unknown History tablet duloxetine 30 mg capsule,delayed 30 mg PO DAILY@08 #30 cap 06/28/21 06/28/21 Unknown Rx release duloxetine 60 mg capsule,delayed 60 mg PO DAILY #30 cap 06/28/21 06/28/21 Unknown Rx release Allergies Allergy/AdvReac Type Severity Reaction Status Date / Time adhesive tape Allergy rash Verified 06/27/21 08:47 cinnamon Allergy sinus Verified 06/27/21 08:47 codeine Allergy unknown Verified 06/27/21 08:47 cedar Allergy sinus Uncoded 06/27/21 08:47 pine Allergy sinus Uncoded 06/27/21 08:47 pork food Allergy ADR-Nausea Uncoded 06/27/21 08:47 PFSH Acute PFSH: Medical History Anxiety and depression CHF exacerbation Chronic knee pain Chronic low back pain COPD (chronic obstructive pulmonary disease) Oxygen dependent, 2 L at baseline Coronary artery disease COVID-14 August 2020 Fibromyalgia High risk medication use Hyperlipidemia Hypertension Hypothyroidism Immunization counseling Inflammatory arthritis Intermittent atrial fibrillation Because the patient history of frequent fall she was thought to be high risk for bleeding complications. So she is taking only the aspirin at this time. SHE HAS EASY BRUISING WELL Left renal mass Liver cirrhosis Low back pain of over 3 months duration Lung nodule Narrow complex tachycardia Osteoarthritis of knees, bilateral Poorly controlled diabetes mellitus Recurrent UTI Seronegative rheumatoid arthritis of both hands Unstable angina Urgency incontinence UTI (urinary tract infection) Surgical History History of cardiac cath History of cholecystectomy History of hysterectomy History of knee replacement History of thyroid surgery Family History Other CAD (coronary artery disease) Cancer Denies family history of Anesthesia complication Bleeding disorder Social History Smoking and tobacco status: former smoker Quit status (tobacco): has quit using tobacco Year quit tobacco: 2005 Second hand smoke exposure: No Alcohol intake: never Adopted: No Caregiver/support person: No Lives independently: No Household members: spouse Marital status: Current occupational status: retired History of recent travel: No Current gender identity: Female Female Reproductive History: Date of last menstrual period: 11/18/20 Vitals/I&O/Wt Last Vital Signs Pulse 83 06/30/21 05:33 Resp 18 06/30/21 04:41 BP 127/91 06/30/21 05:35 Pulse Ox 96 06/30/21 05:35 Weight last 48 hrs Weight 99.79 kg Physical Exam Narrative: EXAM NARRATIVE: The patient is awake alert and oriented x3. No acute distress. Mood and affect are appropriate. However she looks very tired. Responses are adequate. Skin is warm and dry. Eyes PERRL, extraocular muscles are intact Dry mucous membranes Neck tender on palpation in the C-spine, no JVD Lungs decreased breath sounds bibasilarly. No respiratory distress Heart S1, S2, irregularly irregular Abdomen soft, obese, nontender, bowel sounds are present Extremities bilateral pedal edema and chronic stasis changes. No peripheral cyanosis. No hyperemia. Neuro examination is nonfocal. Normal speech. No facial asymmetry. Data : 06/30/21 04:44 06/30/21 04:44 Other Labs: Laboratory Results WBC 7.0 10^3/uL (4.0-10.0) 06/30/21 04:44 RBC 3.04 10^6/uL (4.1-5.3) L 06/30/21 04:44 Hgb 10.0 g/dL (11.5-15.3) L 06/30/21 04:44 Hct 30.0 % (37.0-47.0) L 06/30/21 04:44 MCV 98.7 fl (81-99) 06/30/21 04:44 MCH 32.9 pg (28.0-34.0) 06/30/21 04:44 MCHC 33.3 g/dL (30.0-36.0) 06/30/21 04:44 RDW 13.6 % (12.1-15.1) 06/30/21 04:44 Plt Count 229 10^3/cmm (130-400) 06/30/21 04:44 MPV 10.0 fL (7.4-10.4) 06/30/21 04:44 Neut % (Auto) 67.3 % 06/30/21 04:44 Lymph % (Auto) 21.1 % 06/30/21 04:44 [place] % (Auto) 8.5 % 06/30/21 04:44 Eos % (Auto) 1.6 % 06/30/21 04:44 Baso % (Auto) 0.9 % 06/30/21 04:44 Neut # (Auto) 4.71 10^3/uL (1.8-7.7) 06/30/21 04:44 Lymph # (Auto) 1.5 10^3/uL (0.8-4.8) 06/30/21 04:44 [place] # (Auto) 0.6 10^3/uL (0.2-0.9) 06/30/21 04:44 Eos # (Auto) 0.1 10^3/uL (0.0-0.8) 06/30/21 04:44 Baso # (Auto) 0.1 10^3/uL (0.0-0.1) 06/30/21 04:44 Nucleated RBC % (auto) 0 % 06/30/21 04:44 Nucleated RBCs # 0.0 /100WBC 06/30/21 04:44 Sodium 139 mmol/L (136-145) 06/30/21 04:44 Potassium 3.8 mmol/L (3.5-5.1) 06/30/21 04:44 Chloride 93 mmol/L (98-107) L 06/30/21 04:44 Carbon Dioxide 33 mmol/L (22-29) H 06/30/21 04:44 Anion Gap 16.8 (5-19) 06/30/21 04:44 BUN 23 mg/dL (8-23) 06/30/21 04:44 Creatinine 1.1 mg/dL (0.5-0.9) H 06/30/21 04:44 GFR Calculation Not Reportable 06/30/21 04:44 Glucose 278 mg/dL (65-115) H 06/30/21 04:44 Calculated Osmolality 302 mOsm/kg (285-295) H 06/30/21 04:44 Calcium 10.0 mg/dL (8.5-10.5) 06/30/21 04:44 Total Bilirubin 0.5 mg/dL (0.15-1.2) 06/30/21 04:44 AST 39 U/L (0-32) H 06/30/21 04:44 ALT 24 U/L (0-33) 06/30/21 04:44 Alkaline Phosphatase 99 IU/L (35-105) 06/30/21 04:44 Troponin T Baseline 38 ng/L (0-10) H 06/30/21 04:40 Total Protein 6.3 g/dL (6.6-8.7) L 06/30/21 04:44 Albumin 3.6 g/dL (3.5-5.2) 06/30/21 04:44 Globulin 2.7 g/dL (1.3-4.6) 06/30/21 04:44 Impressions Chest X-Ray 06/30/21 04:42 IMPRESSION: There are low lung volumes. Otherwise, the lungs are clear. Radiation Dose CTDIVOL = (mGy): DLP = (mGy-cm) A&P Additional A&P Information 70 year old female with past medical history of atrial fibrillation, diastolic congestive heart failure, coronary artery disease, hypertension, CKD, COPD, hypothyroidism, generalized deconditioning and debilitated state, recurrent orthostatic hypotension who is presenting to emergency room with complaints of recurrent falls and chronic dizziness. The patient has orthostatic hypotension, generalized deconditioning and debilitated state. Orthostatic hypotension. Already received a bolus of saline IV. Feels better. Will review her med rec when it is available to adjust the medications if possible. Will check UA, TSH, random cortisol. PT OT eval and treat. Might need to be placed. Possible UTI. If confirmed by UA we will start her on antibiotics. History of hypothyroidism. For now we will continue her current Synthroid. If necessary we will do adjustments depending on TSH. reports that she is compliant with her medications. Neck pain. Will order CT of the C-spine. Please follow-up the results. History of atrial fibrillation. She is not on any anticoagulation due to recurrent falls. Currently rate controlled. Anemia. Stable. We will continue monitoring. Chronic kidney disease. We will continue monitoring renal function. History of coronary artery disease and CHF. Currently stable no evidence of decompensation. DVT prophylaxis. Teds and SCDs. No anticoagulation due to risk of bleeding due to the recurrent falls. CODE STATUS. She wants to be full code. However she would not want to be on extended life support if there is no hope for meaningful recovery. The plan of care was discussed with the patient and her who is her primary caregiver. They verbalized understanding and agreement. Attestations Medical Necessity Statement*: Observation Coding Level of Care Code Acute Patient Care Nursing Assistant for Dougie Samson
[2021-06-30 06:31] LABS: Lactic Sepsis W/Reflex 2.9 mmol/L (0.5-2.2)
[2021-06-30 06:59] LABS: Thyroid Stimulating Hormone 0.59 uIU/mL (0.27-4.20)
[2021-06-30 07:00] LABS: Cortisol Random 16.26 ug/dL (2.47-19.5)
[2021-06-30 07:21] LABS: Add Urine Culture? Yes; Add Urine Microscopic? YES; Bacteria Urine 1+ /hpf; Bilirubin Urine 1+ (Negative); Blood Urine Neg (Negative); Glucose Urine UA 1+ (Normal); Ketones Urine Negative (Negative); Leukocyte Esterase Urine 2+ (Negative); Mucus Urine TRACE /hpf; Nitrate Urine Negative (Negative); Protein Urine 1+ (Negative); Specific Gravity, Urine 1.015 (1.005-1.030); Squamous Epithelial Cell Urine 0-4 /hpf (0-5); Urine Appearance Cloudy (CLEAR); Urine Color Yellow (Yellow); Urobilinogen Urine Norm (Negative); WBC Urine >100 /hpf (0-5); pH Urine 5 (5-7)
[2021-06-30 07:30] LABS: Troponin 5 2HR 26.82 ng/L (0-10)
[2021-06-30 07:32] LABS: Troponin 5 2HR Delta -11.18 ABS# (0-10)
[2021-06-30 08:03] LABS: Reflex Lactate Order REFLEX LACTIC ORDERD
--- NOTE | 2021-06-30 10:13 | PC.CHAP ---
Pastoral Care Encounter/Spiritual Assessment Type of Contact [] Declined quality nurse visit [] Patient/Family/Request visit [] Outpatient visit [] Follow-up visit [] Physician referral [] Code/Alert [x] Routine visit [] Staff referral [] Actively dying [] Patient sleeping [] Family support [] [] Out of room [] Palliative care [] [x] Receiving care in room [] Pre-surgical visit [] Trauma [x] Long length of stay [] ICU visit [] Other: Relational/Emotional Strength [x] Patient feels connected with others/family/visitors/staff [] Distress [] Loneliness/isolation [] Abandonment Spirituality of Patient [x] Person of Joelle [] Attends Caodaism of their Joelle [x] Believes in Prayer [] Reads Bible or Synagogue materials [] There are Spiritual issues to be addressed Registered Veterinary Technician Interventions [x] Prayer [x] Active listening [x] Non-anxious presence [x] Spiritual/emotional support [] Crisis/trauma care [x] Spiritual counseling [] Bereavement support [] Provided bereavement packet [] Provided Bible/devotional materials [] Provided toy/stuffed animal, coloring book to patient or family member [] Provided Communion [] Anointing/[place] [] Salvation [x] Completed spiritual assessment [] Other: Impact on Illness or Injury [] Angry [x] Fearful [] Anxious [] Often cries [] Exhaustion [x] Unable to work [] Unable to attend yarsanism [] Unable to walk/stand [] Unable to read [] Unable to drive [] Unable to eat/drink [] Unable to sleep [] Unable to be with family [] Patient intubated [] Other: Summary Blood pressuer doesn't what needs to be done at point negative attitude or whe she can go home Time spent with patient 10 mins
[2021-06-30 10:51] LABS: Troponin 5 6HR 31.22 ng/L (0-10)
--- NOTE | 2021-06-30 10:52 | ECG_ITS ---
[facility] Test Date: 2021-06-30 Pat Name: Myesha Parker Department: Room: 251 Gender: Female Form Grader: : 1950 Requested By: Karma Garner Order Number: [id number] Wilbur MD: Victoriano White M.D. Measurements Intervals [place] Rate: 85 P: [place]: QRS: -72 QRSD: 170 T: 32 QT: 447 QTc: 533 Interpretive Statements ATRIAL FIBRILLATION RIGHT BUNDLE BRANCH BLOCK [120+ ms QRS DURATION, UPRIGHT V1, 40+ ms S IN I/aVL/V4/V5/V6] LEFT ANTERIOR FASCICULAR BLOCK [QRS AXIS <= -45, QR IN I, RS IN II] POSSIBLE LEFT VENTRICULAR HYPERTROPHY [VOLTAGE CRITERIA PLUS LAE OR QRS WIDENING] POSSIBLE SEPTAL MYOCARDIAL INFARCTION , PROBABLY OLD [30 ms Q WAVE IN V1/V2] ST DEPRESSION, CONSIDER SUBENDOCARDIAL INJURY [0.1+ mV ST DEPRESSION] Compared to ECG 06/30/2021 04:51:59 Myocardial infarct finding now present ST (T wave) deviation still present Electronically Signed On 06-30-2021 17:14:01 CDT by Victoriano White M.D. [id number]
[2021-06-30 10:53] LABS: Lactic Acid level (Lactate) 2.3 mmol/L (0.5-2.2)
[2021-06-30 10:54] LABS: Troponin 5 6HR Delta -6.78 ng/L (0-12)
--- NOTE | 2021-06-30 12:25 | PM.MISC ---
Miscellaneous Note Note: Patient was seen and examined this morning Patient is stating that she spent too much time on the toilet which caused numbness of her legs and she could not get up on her legs properly when her helped her around 2 AM the reason she came to the hospital is fatigue, lethargy and low blood pressure Patient was eating breakfast when I entered the room Was saturating well on 3 to nasal cannula Distended abdomen, soft no signs of peritonitis Bowel sounds present Lower extremity no signs of venous stasis dermatitis or edema Nonfocal neuro exam Coarse tremors noticed of upper extremities Nonfocal neuro exam She does take time to respond to my questions otherwise I did not notice any focal deficits Plan For generalized weakness and lethargy related to deconditioning and orthostasis Continue IV fluids Continue IV antibiotics for UTI Patient does complain abdominal pain with dysuria We will follow with urine cultures PT evaluation e commerce manager updated for possible alf placement, patient is agreeable Patient not on any anticoagulation for risk of falls she takes high-dose aspirin for A. fib Full code Continue medical management 15 minutes
[2021-06-30] MEDS: cefTRIAXone 1,000 MG in sodium chloride 0.9% (plus) 50 ML 100 MG IV (14:36)
--- NOTE | 2021-06-30 15:51 | PC.PT ---
Patient declines out of bed, and attempted physical therapy evaluation at this time, states wants to wait till tomorrow, patient has long history of same, will reattempt tomorrow
[2021-06-30 17:03] LABS: Glucose Point of Care 259 mg/dL (70-110)
[2021-06-30] MEDS: insulin lispro 100 unit/1 mL SUBCUT ×2 (17:24→22:05)
[2021-06-30 21:56] LABS: Glucose Point of Care 293 mg/dL (70-110)
[2021-06-30] MEDS: metoprolol tartrate 50 mg Tablet PO (22:05)
[2021-07-01] VITALS (12 sets, daily range): BP systolic 152–201; BP diastolic 71–85; PULSE 70–82; RESP 14–20; TEMP 36.5–37.1; O2SAT 94–99
--- NOTE | 2021-07-01 04:31 | PC.NURSE ---
It was reported to this nurse that the patients BP was 201/72 in the L arm, this nurse obtained a manual BP in the R arm and got 187/82, pt was asymptomatic.
[2021-07-01] MEDS: levothyroxine 150 mcg Tablet PO (05:40)
[2021-07-01 05:41] LABS: Basophils # 0.1 10^3/uL (0.0-0.1); Basophils % 0.8 %; Eosinophils # 0.1 10^3/uL (0.0-0.8); Eosinophils % 1.8 %; Hematocrit 27.7 % (37.0-47.0); Hemoglobin 9.2 g/dL (11.5-15.3); Lymphocytes # 1.1 10^3/uL (0.8-4.8); Lymphocytes % 17.6 %; Mean Corpuscular HGB Conc 33.2 g/dL (30.0-36.0); Mean Corpuscular Hemoglobin 32.9 pg (28.0-34.0); Mean Corpuscular Volume 98.9 fl (81-99); Mean Platelet Volume 9.8 fL (7.4-10.4); Monocytes # 0.7 10^3/uL (0.2-0.9); Monocytes % 10.6 %; Neutrophils # 4.21 10^3/uL (1.8-7.7); Neutrophils % 68.5 %; Nucleated Red Blood Cells % 0 %; Platelet Count 153 10^3/cmm (130-400); Red Cell Distribution Width 13.8 % (12.1-15.1); White Blood Count 6.1 10^3/uL (4.0-10.0)
[2021-07-01 06:06] LABS: Anion Gap 13.3 (5-19); Blood Urea Nitrogen 24 mg/dL (8-23); Calcium 9.4 mg/dL (8.5-10.5); Carbon Dioxide 35 mmol/L (22-29); Chloride 98 mmol/L (98-107); Glucose 198 mg/dL (65-115); Magnesium 1.5 mg/dL (1.7-2.3); Osmolality Calculated 306 mOsm/kg (285-295); Potassium 3.3 mmol/L (3.5-5.1); Sodium 143 mmol/L (136-145)
[2021-07-01 06:32] LABS: Glucose Point of Care 203 mg/dL (70-110)
--- NOTE | 2021-07-01 09:29 | PC.CHAP ---
Pastoral Care Encounter/Spiritual Assessment Type of Contact [] Declined transportation design engineer visit [] Patient/Family/Request visit [] Outpatient visit [] Follow-up visit [] Physician referral [] Code/Alert [x] Routine visit [] Staff referral [] Actively dying [] Patient sleeping [] Family support [] [] Out of room [] Palliative care [] [] Receiving care in room [] Pre-surgical visit [] Trauma [] Long length of stay [] ICU visit [] Other: Relational/Emotional Strength [x] Patient feels connected with others/family/visitors/staff [] Distress [] Loneliness/isolation [] Abandonment Spirituality of Patient [x] Person of Joelle [x] Attends Methodist of their Joelle [x]x Believes in Prayer [] Reads Bible or Islam materials [] There are Spiritual issues to be addressed [facility] Interventions [x] Prayer [x] Active listening [x] Non-anxious presence [x] Spiritual/emotional support [] Crisis/trauma care [] Spiritual counseling [] Bereavement support [] Provided bereavement packet [] Provided Bible/devotional materials [] Provided toy/stuffed animal, coloring book to patient or family member [] Provided Communion [] Anointing/[place] [] Salvation [x] Completed spiritual assessment [] Other: Impact on Illness or Injury [] Angry [] Fearful [] Anxious [] Often cries [] Exhaustion [] Unable to work [] Unable to attend sikh [] Unable to walk/stand [] Unable to read [] Unable to drive [] Unable to eat/drink [] Unable to sleep [] Unable to be with family [] Patient intubated [] Other: Summary Time spent with patient
[2021-07-01] MEDS: insulin lispro 100 unit/1 mL SUBCUT ×4 (09:34→20:46)
[2021-07-01] MEDS: metoprolol tartrate 50 mg Tablet PO ×2 (09:37→20:45)
--- NOTE | 2021-07-01 10:53 | ECG_ITS ---
[facility] Test Date: 2021-07-01 Pat Name: Myesha Parker Department: Room: 251 Gender: Female Food Beverage Attendant: : 1950 Requested By: Tim Robert Order Number: [id number] Reading MD: TIM EMMANUEL Measurements Intervals [place] Rate: 74 P: 33 NE: 256 QRS: -59 QRSD: 155 T: 32 QT: 444 QTc: 493 Interpretive Statements SINUS RHYTHM WITH FIRST DEGREE AV BLOCK RIGHT BUNDLE BRANCH BLOCK [120+ ms QRS DURATION, UPRIGHT V1, 40+ ms S IN I/aVL/V4/V5/V6] LEFT ANTERIOR FASCICULAR BLOCK [QRS AXIS <= -45, QR IN I, RS IN II] LEFT VENTRICULAR HYPERTROPHY AND ST-T CHANGE [VOLTAGE CRITERIA PLUS ST/T ABNORMALITY] POSSIBLE SEPTAL MYOCARDIAL INFARCTION , OF INDETERMINATE AGE [30 ms Q WAVE IN V1/V2] Compared to ECG 06/30/2021 11:37:56 First degree AV block now present Atrial fibrillation no longer present ST (T wave) deviation still present Myocardial infarct finding still present Electronically Signed On 07-02-2021 0:00:57 CDT by TIM EMMANUEL [id number]
--- NOTE | 2021-07-01 11:46 | P.PN_ITS ---
Subjective Subjective: Interval history: Patient became dizzy this morning when she stood up, orthostatics positive supine blood pressure 189/78 on standing 164/81 mmHg Repeat EKG which showed incomplete right bundle branch block with T wave changes related to bundle branch block, requested D-dimer, serial troponin and EKG, She has remained afebrile, she was eating breakfast, she had 1 bowel movement this morning as well, patient did endorse urinary frequency last night Magnesium 1.5, potassium 3.3 Creatinine 1.1, she does have history of atrial fibrillation, TSH normal random cortisol level normal abnormal UA urine culture growing gram- negative rods, she has been afebrile no leukocytosis previous urine culture positive for E. coli sensitive to ceftriaxone Vitals/I&O/Wt Last Vital Signs Temp 98.2 F 07/01/21 07:14 Pulse 72 07/01/21 10:53 Resp 16 07/01/21 07:14 BP 189/78 07/01/21 10:52 Pulse Ox 97 07/01/21 07:14 06/30/21 07/01/21 07/01/21 22:59 06:59 14:59 Intake Total 50 / 770 120 / 890 Output Total 150 / 150 370 / 520 Balance -100 / 620 -250 / 370 Weight last 48 hrs Weight 99.79 kg Physical Exam 2 Narrative: EXAM NARRATIVE: Patient was sitting in her chair eating breakfast EOMI, PERRLA Coarse tremors of upper extremities Awake and alert Does get dizzy on standing, orthostatic vitals positive Distended abdomen with obesity Lower extremity edema slightly improved No audible stridor or wheezing saturating well on 2 L nasal cannula Variable S1-S2 Data : 07/01/21 04:53 07/01/21 04:53 Micro: Microbiology 06/30/21 05:11 Urine Culture - Preliminary Urine,Clean Catch Gram Negative Rods A&P Additional A&P Information Generalized deconditioning UTI Orthostatic hypotension A. fib without RVR Rheumatoid arthritis Chronic kidney disease Chronic macrocytic anemia Plan Patient is positive for orthostasis, will add pyridostigmine 30 mg twice daily, TSH normal, cortisol level normal, currently heart rate in 70s without RVR irregular heart rhythm, PT evaluation, most likely would benefit from custodial facility for her deconditioning and orthostasis CT spine unremarkable Get serial troponin and EKG Recent Lexiscan stress test unremarkable, preserved ejection fraction on recent echo UTI: Gram-negative rocky, continue ceftriaxone previous culture E. coli positive A. fib without RVR not a candidate of anticoagulation, check digoxin level, currently on AV vitaliy blocking agent, heart rate in 70s Macrocytic anemia, continue vitamin B12, she does take methotrexate for r heumatoid arthritis Hypertensive: Her hypertension is tough to treat because of hypotension related to orthostasis she was also on midodrine in the past For now she is getting metoprolol I will add lisinopril Chronic kidney disease without acute exacerbation DVT prophylaxis: SCDs avoiding anticoagulation because of risk of recurrent falls Full code Cardiac diet Attestations Medical Necessity Statement*: Awaiting long term placement Time Spent in Patient Care: 16 - 35 minutes Coding Level of Care Code Acute Gerentological Physiotherapist for Dougie Samson
[2021-07-01 11:56] LABS: D Dimer 1.52 ug/mIFEU (0-0.59)
[2021-07-01 12:03] LABS: Troponin(5th) Baseline 32 ng/L (0-10)
[2021-07-01 12:22] LABS: Glucose Point of Care 280 mg/dL (70-110)
[2021-07-01 12:40] LABS: Digoxin 0.6 ng/mL (0.6-1.2)
--- NOTE | 2021-07-01 12:53 | ECG_ITS ---
[facility] Test Date: 2021-07-01 Pat Name: Myesha Parker Department: Room: 251 Gender: Female Rules Examiner: : 1950 Requested By: Tim Robert Order Number: [id number] Reading MD: TIM EMMANUEL Measurements Intervals [place] Rate: 76 P: [place]: QRS: -66 QRSD: 164 T: 27 QT: 451 QTc: 509 Interpretive Statements SINUS RHYTHM RIGHT BUNDLE BRANCH BLOCK [120+ ms QRS DURATION, UPRIGHT V1, 40+ ms S IN I/aVL/V4/V5/V6] LEFT ANTERIOR FASCICULAR BLOCK [QRS AXIS <= -45, QR IN I, RS IN II] VOLTAGE CRITERIA FOR LVH [MEETS CRITERIA IN ONE OF: R(aVL), S(V1), R(V5), R(V5/V6)+S(V1)] POSSIBLE SEPTAL MYOCARDIAL INFARCTION , OF INDETERMINATE AGE [30 ms Q WAVE IN V1/V2] Compared to ECG 07/01/2021 11:48:37 NO SIG CHANGE Electronically Signed On 07-02-2021 0:03:20 CDT by TIM EMMANUEL [id number]
[2021-07-01] MEDS: pyridostigmine 60 mg Tablet 30 MG PO (13:23)
[2021-07-01] MEDS: lisinopril 20 mg Tablet PO (13:24)
[2021-07-01] MEDS: cefTRIAXone 1,000 MG in sodium chloride 0.9% (plus) 50 ML 100 MG IV (13:25)
[2021-07-01 14:49] LABS: Troponin 5 2HR 33.46 ng/L (0-10); Troponin 5 2HR Delta 1.46 ABS# (0-10)
[2021-07-01] MEDS: ondansetron 2 mg/ML SDV 2 mL 4 MG IVP (15:13)
[2021-07-01] MEDS: acetaminophen 325 mg Tablet 650 MG PO (15:13)
--- NOTE | 2021-07-01 15:55 | PC.PT ---
Attempted PT evaluation 2 times this a.m., on first patient eating breakfast, requested patient stay up in chair until I come back call upon return patient has returned to bed, and was agreeable to treatment in about an hour; in the meanwhile patient working with occupational therapist telemetry significant hypertension episodes, and nursing trying to control this, will reattempt evaluation tomorrow.
--- NOTE | 2021-07-01 16:53 | ECG_ITS ---
[facility] Test Date: 2021-07-01 Pat Name: Myesha Parker Department: Room: 251 Gender: Female Cementer: : 1950 Requested By: Tim Robert Order Number: [id number] Reading MD: TIM EMMANUEL Measurements Intervals [place] Rate: 74 P: 38 GA: 278 QRS: -62 QRSD: 157 T: 32 QT: 461 QTc: 514 Interpretive Statements SINUS RHYTHM WITH FIRST DEGREE AV BLOCK RIGHT BUNDLE BRANCH BLOCK [120+ ms QRS DURATION, UPRIGHT V1, 40+ ms S IN I/aVL/V4/V5/V6] LEFT ANTERIOR FASCICULAR BLOCK [QRS AXIS <= -45, QR IN I, RS IN II] POSSIBLE LEFT VENTRICULAR HYPERTROPHY [VOLTAGE CRITERIA PLUS LAE OR QRS WIDENING] POSSIBLE SEPTAL MYOCARDIAL INFARCTION , OF INDETERMINATE AGE [30 ms Q WAVE IN V1/V2] Compared to ECG 07/01/2021 13:20:54 First degree AV block now present Myocardial infarct finding still present Electronically Signed On 07-02-2021 0:02:24 CDT by TIM EMMANUEL [id number]
[2021-07-01 17:03] LABS: Glucose Point of Care 256 mg/dL (70-110)
[2021-07-01] MEDS: hyDRALAzine 20 mg/mL INJ 1 mL 10 MG IVP ×2 (17:46→20:45)
[2021-07-01 18:00] LABS: Troponin 5 6HR 31.81 ng/L (0-10); Troponin 5 6HR Delta -0.19 ng/L (0-12)
[2021-07-01 19:22] LABS: Glucose Point of Care 321 mg/dL (70-110)
[2021-07-01 20:21] LABS: Glucose Point of Care 344 mg/dL (70-110)
[2021-07-02] VITALS (40 sets, daily range): BP systolic 113–221; BP diastolic 66–127; PULSE 73–135; RESP 12–33; TEMP 36.7–37.3; O2SAT 79–98
--- NOTE | 2021-07-02 04:52 | PC.NURSE ---
Dr. Whitmore notified of pt bp of 191/79 (HR 85). telephone orders (read-back) for Labetalol 10mg IVP for systolic greater than 160 Q4H, but to hold if HR is below 65.
[2021-07-02] MEDS: levothyroxine 150 mcg Tablet PO (05:43)
[2021-07-02] MEDS: labetalol 5 mg/mL SDV 20mL 10 MG IVP ×3 (05:43→08:49)
[2021-07-02 05:55] LABS: Anion Gap 14.4 (5-19); Blood Urea Nitrogen 22 mg/dL (8-23); Calcium 9.8 mg/dL (8.5-10.5); Carbon Dioxide 35 mmol/L (22-29); Chloride 95 mmol/L (98-107); Glucose 292 mg/dL (65-115); Magnesium 1.7 mg/dL (1.7-2.3); Osmolality Calculated 306 mOsm/kg (285-295); Potassium 3.4 mmol/L (3.5-5.1); Sodium 141 mmol/L (136-145)
[2021-07-02 06:49] LABS: Glucose Point of Care 330 mg/dL (70-110)
--- NOTE | 2021-07-02 07:32 | USR_ITS ---
PROCEDURE INFORMATION: Exam: US Duplex Lower Extremity Veins, Bilateral Exam date and time: 07/02/2021 7:32 AM Age: 70 years old Clinical indication: Edema, localized; Lower extremity, bilateral; Additional info: Dvt TECHNIQUE: Imaging protocol: Real-time duplex ultrasound of the extremities with 2-D velez scale, color Doppler flow and spectral waveform analysis with image documentation. Complete exam focused on the bilateral lower extremity veins. COMPARISON: US renal BI* [id number] 01/05/2020 10:49 AM FINDINGS: Right deep veins: Unremarkable. The common femoral, femoral, proximal profunda femoral, popliteal, posterior tibial and peroneal veins are patent without thrombus. Normal Doppler waveforms. Normal compressibility and/or augmentation response. Right superficial veins: Saphenofemoral junction is patent without thrombus. Left deep veins: Unremarkable. The common femoral, femoral, proximal profunda femoral, popliteal, posterior tibial and peroneal veins are patent without thrombus. Normal Doppler waveforms. Normal compressibility and/or augmentation response. Left superficial veins: Saphenofemoral junction is patent without thrombus. Soft tissues: Unremarkable. US/[place] [id number] IMPRESSION: No sonographic evidence of deep vein thrombosis. Radiation Dose CTDIVOL = (mGy): DLP = (mGy-cm)
[2021-07-02 07:37] LABS: Vitamin B12 > 2000 pg/mL (232-1245)
[2021-07-02 08:02] LABS: NT Pro B Type Natriuretic Pept 952 pg/mL (0-125)
--- NOTE | 2021-07-02 08:37 | CTR_ITS ---
PROCEDURE INFORMATION: Exam: CT Head Without Contrast Exam date and time: 07/02/2021 8:37 AM Age: 70 years old Clinical indication: Other: Stroke alert, aphasic TECHNIQUE: Imaging protocol: Computed tomography of the head without contrast. Radiation optimization: All CT scans at this facility use at least one of these dose optimization techniques: automated exposure control; mA and/or kV adjustment per patient size (includes targeted exams where dose is matched to clinical indication); or iterative reconstruction. Other technique: STROKE PROTOCOL was implemented. COMPARISON: CT head wo con* [id number] 06/22/2021 9:30 PM RADIATION DOSE METRICS: Total DLP (mGy-cm): 810.47 FINDINGS: Brain: No intracranial hemorrhage, edema or other acute abnormalities are seen in the brain. There is generalized chronic atrophy with prominence of the ventricles and sulci. There is patchy decreased white matter density indicating chronic small vessel white matter ischemia. Cerebral ventricles: There is mild ventricular prominence due to chronic atrophy. Paranasal sinuses: Visualized sinuses are unremarkable. No fluid levels. Mastoid air cells: Visualized mastoid air cells are well aerated. Bones/joints: Unremarkable. No acute fracture. Soft tissues: Unremarkable. CT/CT head wo con* [id number] IMPRESSION: 1. No acute abnormality. 2. Chronic atrophy with chronic white matter ischemic changes. ASSESSMENT: ASPECTS (Angy Stroke Program Early CT Score) is 10. Radiation Dose CTDIVOL = (mGy): DLP = 810.47 (mGy-cm)
--- NOTE | 2021-07-02 08:42 | CTR_ITS ---
PROCEDURE INFORMATION: Exam: CT Angiography Head With Contrast, Arteriography Exam date and time: 07/02/2021 8:42 AM Age: 70 years old Clinical indication: Other: Nonverbal, not following commands TECHNIQUE: Imaging protocol: Computed tomography angiography of the head with contrast. Exam focused on the arteries. 3D rendering (Not supervised by radiologist): MIP and/or 3D reconstructed images were created by the technologist. Radiation optimization: All CT scans at this facility use at least one of these dose optimization techniques: automated exposure control; mA and/or kV adjustment per patient size (includes targeted exams where dose is matched to clinical indication); or iterative reconstruction. Contrast material: OMNI 350; Contrast volume: 75 ml; Contrast route: INTRAVENOUS (IV); COMPARISON: CT head wo con* [id number] 07/02/2021 9:04 AM RADIATION DOSE METRICS: Total DLP (mGy-cm): 4746.44 FINDINGS: ANTERIOR CIRCULATION: Right internal carotid artery: There is calcification of the intracavernous portion. Intracranial segment is patent with no significant stenosis. No aneurysm. Right middle cerebral artery: Unremarkable. No occlusion or significant stenosis. No aneurysm. Right anterior cerebral artery: Unremarkable. No occlusion or significant stenosis. No aneurysm. Left internal carotid artery: There is calcification of the intracavernous portion. Intracranial segment is patent with no significant stenosis. No aneurysm. Left middle cerebral artery: Unremarkable. No occlusion or significant stenosis. No aneurysm. Left anterior cerebral artery: Unremarkable. No occlusion or significant stenosis. No aneurysm. POSTERIOR CIRCULATION: Right vertebral artery: Unremarkable. No occlusion or significant stenosis. No aneurysm. Left vertebral artery: Unremarkable. No occlusion or significant stenosis. No aneurysm. Basilar artery: Unremarkable. No occlusion or significant stenosis. No aneurysm. Right posterior cerebral artery: Unremarkable. No occlusion or significant stenosis. No aneurysm. Left posterior cerebral artery: Unremarkable. No occlusion or significant stenosis. No aneurysm. Brain: Generalized chronic atrophy. No definite mass, mass effect, or midline shift. Cerebral ventricles: No ventriculomegaly. Bones/joints: Unremarkable. No acute fracture. Soft tissues: Unremarkable. IMPRESSION: No large vessel stenosis or occlusion. PROCEDURE INFORMATION: Exam: CT Angiography Neck With Contrast Exam date and time: 07/02/2021 8:42 AM Age: 70 years old Clinical indication: Other: Nonverbal, not following commands TECHNIQUE: Imaging protocol: Computed tomography angiography of the neck with contrast. 3D rendering (Not supervised by radiologist): MIP and/or 3D reconstructed images were created by the technologist. Radiation optimization: All CT scans at this facility use at least one of these dose optimization techniques: automated exposure control; mA and/or kV adjustment per patient size (includes targeted exams where dose is matched to clinical indication); or iterative reconstruction. Contrast material: OMNI 350; Contrast volume: 75 ml; Contrast route: INTRAVENOUS (IV); COMPARISON: CT head wo con* [id number] 07/02/2021 9:04 AM RADIATION DOSE METRICS: Total DLP (mGy-cm): 4746.44 FINDINGS: Right common carotid artery: No stenosis. No dissection or occlusion. Right internal carotid artery: There is mild atherosclerotic calcification at the origin with mild less than 50% stenosis. No dissection or occlusion. Right external carotid artery: No occlusion or stenosis of the origin. Left common carotid artery: No stenosis. No dissection or occlusion. Left internal carotid artery: There is mild atherosclerotic calcification at the origin with mild less than 50% stenosis. No dissection or occlusion. Left external carotid artery: No occlusion or stenosis of the origin. Right vertebral artery: No stenosis. No dissection or occlusion. Left vertebral artery: No stenosis. No dissection or occlusion. Soft tissues: Normal. No significant soft tissue swelling. Bones/joints: No acute fracture. CT/CT angio headneck* [id number] IMPRESSION: Mild atherosclerotic calcification at the origins of the internal carotid arteries but no hemodynamically significant stenoses in the neck. REFERENCES: NASCET CRITERIA. The degree of internal carotid artery stenosis is based on NASCET criteria. Normal is no stenosis. Mild is less than 50% stenosis. Moderate is 50-69% stenosis. Severe is 70% to 99% stenosis. Total occlusion is no detectable patent lumen. Radiation Dose CTDIVOL = (mGy): DLP = 4746.44~4746.44 (mGy-cm)
--- NOTE | 2021-07-02 08:43 | ECG_ITS ---
[facility] Test Date: 2021-07-02 Pat Name: Myesha Parker Department: Room: 251 Gender: Female First Aid Instructor: : 1950 Requested By: Tim Robert Order Number: [id number] Wilbur MD: Victoriano White M.D. Measurements Intervals [place] Rate: 92 P: 22 SC: 213 QRS: -66 QRSD: 156 T: 37 QT: 442 QTc: 549 Interpretive Statements SINUS RHYTHM WITH FIRST DEGREE AV BLOCK RIGHT BUNDLE BRANCH BLOCK [120+ ms QRS DURATION, UPRIGHT V1, 40+ ms S IN I/aVL/V4/V5/V6] LEFT ANTERIOR FASCICULAR BLOCK [QRS AXIS <= -45, QR IN I, RS IN II] POSSIBLE LEFT VENTRICULAR HYPERTROPHY [VOLTAGE CRITERIA PLUS LAE OR QRS WIDENING] POSSIBLE SEPTAL MYOCARDIAL INFARCTION , OF INDETERMINATE AGE [30 ms Q WAVE IN V1/V2] INTERPRETATION BASED ON A DEFAULT AGE OF 40 YEARS Compared to ECG 07/01/2021 17:24:35 No significant changes Electronically Signed On 07-03-2021 21:57:49 EDUCATION MANAGER by Victoriano White M.D. [id number]
[2021-07-02] MEDS: insulin lispro 100 unit/1 mL SUBCUT ×4 (08:45→22:43)
--- NOTE | 2021-07-02 09:00 | CTR_ITS ---
PROCEDURE INFORMATION: Exam: CTA Chest With Contrast Exam date and time: 07/02/2021 9:00 AM Age: 70 years old Clinical indication: Pain; Left-sided; Additional info: Left chest pain TECHNIQUE: Imaging protocol: Computed tomographic angiography of the chest with contrast. 3D rendering (Not supervised by radiologist): MIP and/or 3D reconstructed images were created by the technologist. Total images: 833 Radiation optimization: All CT scans at this facility use at least one of these dose optimization techniques: automated exposure control; mA and/or kV adjustment per patient size (includes targeted exams where dose is matched to clinical indication); or iterative reconstruction. Contrast material: OMNI 350; Contrast volume: 75 ml; Contrast route: INTRAVENOUS (IV); COMPARISON: CT angio chest PE protcl [id number] 08/08/2020 2:18 PM RADIATION DOSE METRICS: Total DLP (mGy-cm): 552.56 FINDINGS: Pulmonary arteries: Pulmonary artery evaluation of fair technical quality but no pulmonary artery embolism identified. Aorta: Unremarkable. No aortic aneurysm. No aortic dissection. Veins: Pulmonary vascular congestion. Lungs: Mild dependent atelectasis. Pleural spaces: Unremarkable. No pneumothorax. No pleural effusion. Heart: Cardiomegaly. Lymph nodes: Unremarkable. No enlarged lymph nodes. Gallbladder and bile ducts: Prior cholecystectomy noted. Spleen: Incidental splenic granulomata are noted. Kidneys and ureters: Bilateral renal cyst incompletely evaluated. Bones/joints: Spinal degenerative changes are evident. Soft tissues: Unremarkable. CT/CT angio chest PE protcl IMPRESSION: 1. No lobar or larger pulmonary artery embolism identified. Limited quality examination. 2. Cardiomegaly with pulmonary vascular congestion. COMMENTS: Consistent with the [place] [employer]'s Incidental Findings Committee white paper (J Am Cesar Radiol 2018): Any incidental renal lesion less than 1 cm or classified as too small to characterize, or any incidental cystic renal lesion characterized as simple-appearing, is likely benign. No follow-up imaging is recommended for these lesions per consensus recommendations based on imaging criteria. Radiation Dose CTDIVOL = (mGy): DLP = 552.56 (mGy-cm)
[2021-07-02 09:15] LABS: Lactate (Lactic Acid level) 1.6 mmol/L (0.5-2.2)
[2021-07-02 09:27] LABS: Glucose Point of Care 275 mg/dL (70-110)
[2021-07-02 09:37] LABS: Glucose Point of Care 282 mg/dL (70-110)
[2021-07-02 09:37] LABS: Glucose Point of Care 313 mg/dL (70-110)
[2021-07-02] MEDS: iohexol 350 mg/mL 100 mL Btl IV ×2 (09:37→09:38)
[2021-07-02 09:54] LABS: Prolactin 5.77 ng/mL (4.8-23.3)
[2021-07-02] MEDS: potassium chloride ER 20 mEq Tablet 40 MEQ PO (10:48)
[2021-07-02] MEDS: hyDRALAzine 10 mg Tablet PO ×3 (10:48→23:03)
[2021-07-02] MEDS: FUROsemide 40 mg Tablet PO (10:49)
[2021-07-02] MEDS: metoprolol tartrate 50 mg Tablet PO ×2 (10:49→23:04)
[2021-07-02] MEDS: predniSONE 1 mg Tablet 2 MG PO (10:49)
[2021-07-02] MEDS: lisinopril 20 mg Tablet 40 MG PO (10:49)
[2021-07-02] MEDS: nitroglycerin 1 gm/inch oint Pkt 1 INCH TOPICAL ×2 (10:50→15:03)
[2021-07-02] MEDS: cyanocobalamin 1,000 mcg Tablet 500 MCG PO (10:50)
[2021-07-02] MEDS: insulin lispro 100 unit/1 mL 10 UNIT SUBCUT (10:50)
[2021-07-02] MEDS: pyridostigmine 60 mg Tablet 30 MG PO ×2 (10:50→21:42)
[2021-07-02 11:29] LABS: Glucose Point of Care 292 mg/dL (70-110)
[2021-07-02] MEDS: cefTRIAXone 1,000 MG in sodium chloride 0.9% (plus) 50 ML 100 MG IV (12:02)
--- NOTE | 2021-07-02 14:03 | P.PN_ITS ---
Subjective Subjective: Interval history: Code stroke was called this morning when patient was not able to talk blood pressure 212/70 mmHg, blood sugar 313 mg/dL, I came at the bedside and evaluated the patient and 817 Dr. Medina was consulted get CT head without contrast there was no active bleed requested CTA head and neck which was unremarkable Prolactin 5.7 Her BNP from yesterday is 952 She was given 20 mg of labetalol IV push which decreased her blood pressure to 210/92, decision was made to transfer her to CSU start Cardene drip and in the interim put on Nitropaste Awaiting bed on CSU Patient started talking and was able to move her upper and lower extremities after her CT scan as per the whenever there is high blood sugar she does get these episodes when she becomes completely mute I have evaluated patient 3-4 times today she seems to be back to her baseline able to talk make eye contact moving her upper and lower extremities Vitals/I&O/Wt Last Vital Signs Temp 98.2 F 07/02/21 07:20 Pulse 86 07/02/21 10:55 Resp 16 07/02/21 10:55 BP 204/90 07/02/21 10:55 Pulse Ox 98 07/02/21 10:55 07/01/21 07/02/21 07/02/21 22:59 06:59 14:59 Intake Total 282 / 282 210 / 492 170 / 170 Output Total 210 / 210 450 / 660 200 / 200 Balance 72 / 72 -240 / -168 -30 / -30 Physical Exam Narrative: EXAM NARRATIVE: Physical exam after my fourth round Patient is laying supine, getting venous Doppler Sinus rhythm, S1, S2 heart rate in 70s Systolic blood pressure around 200 mmHg Nonfocal neuro exam She has 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 Abdomen soft, distended, nontender Lower extremity no swelling Saturating well on 2 L nasal cannula which is her home baseline She does seem to have fibromyalgia tender points Data : 07/01/21 04:53 07/02/21 04:20 Micro: Microbiology 06/30/21 05:11 Urine Culture - Final Urine,Clean Catch Escherichia coli A&P Assessment and plan (1) Fibromyalgia: Status: Acute (2) Weakness: Status: Acute (3) Multiple falls: Status: Acute (4) Orthostatic hypotension: Status: Acute (5) Recurrent falls: Status: Acute (6) Orthostatic hypotension: Status: Acute (7) Chronic atrial fibrillation: Status: Acute (8) Hypokalemia: Status: Acute (9) Acute exacerbation of CHF (congestive heart failure): Status: Acute Additional A&P Information Code stroke was called when patient developed expressive aphasia nih 17 initiall y, CT head unremarkable, CTA head and neck unremarkable, her symptoms resolved 15-20 minutes after code stroke was called, received 20 mg of IV labetalol, Blood sugar 313, she was given 24 units of short acting insulin in total Blood pressure still high persistent hypotension she will be transferred to cardiac stepdown unit for Cardene drip Not a candidate of TPA her symptoms are not consistent with stroke she does not have any focal deficit, she was evaluated with Dr. Medina and the CT scan room as well As per the she gets these episodes at home when her sugar is high She is at high risk of stroke secondary to history of A. fib, EKG showing sinus rhythm, not a candidate of anticoagulation secondary to recurrent falls Currently in sinus rhythm Heart rate in 80s We will keep her on high-dose aspirin Acute preserved ejection fraction heart failure exacerbation High BNP, clinical signs of fluid overload Oxygen requirement has not worsened doing well on 2 L nasal cannula I will continue her diuretic regimen, Recent cardiac stress test was unremarkable D-dimer high, requested CTA chest: Which is unremarkable Requested venous Dopplers Orthostatic started pyridostigmine 30 mg twice daily, discontinue midodrine and avoid using it because of hypotension Hypokalemia: Repleted Fibromyalgia: Patient has multiple tender points all over her body which is a chronic diagnosis B12 level is normal prolactin level is normal Hypomagnesemia: Repleted continue p.o. magnesium Cardiac diet Full code DVT prophylaxis: Lovenox, initially it was avoided secondary to history of recurrent falls, she is in supervised environment I will keep her on prophylactic regimen for now Awaiting [facility] placement Attestations Medical Necessity Statement*: Awaiting [facility] placement Time Spent in Patient Care: Greater than 35 minutes Coding Level of Care Code Acute Stitcher Feeder for g Fwd Diagnoses Fibromyalgia M79.7 Weakness R53.1 Multiple falls R29.6 Orthostatic hypotension I95.1 Recurrent falls R29.6 Orthostatic hypotension I95.1 Chronic atrial fibrillation I48.20 Hypokalemia E87.6 Acute exacerbation of CHF (congestive heart failure) I50.9
--- NOTE | 2021-07-02 15:35 | PC.NURSE ---
THIS NURSE HAS TAKEN CARE OF THIS PT FOR TWO DAYS NOW; YESTERDAY & TODAY. YESTERDAY THE PTS BLOOD PRESSURE WAS HIGH WAS HER BLOOD SUGAR. THE PHYSICIAN WAS NOTIFIED MULTIPLE TIMES AND MEDICATIONS WERE GIVEN TO HELP LOWER HER BLOOD PRESSURE BUT IT REMAINED HIGH. PT SHOWED NO S/S OF HYPERTENSION. PT WAS DOING GOOD. NO COMPLAINTS OF PAIN. YESTERDAY THE PT DID GOOD FOR ME. SHE WAS TALKING AND INTERACTING WITH ME AND WAS GETTING UP AND AMBULATING, EVEN WITH HIGH BLOOD PRESSURES. BLOOD SUGAR WAS TREATED WITH ORDERED SLIDING SCALE INSULIN. THIS MORNING I WENT IN TO ASSESS THE PT AROUND 0815. THE PT WOULD NOT TALK TO ME. SHE WOULD OPEN HER EYES WITH A STERNAL RUB BUT THAT WAS IT; NO OTHER INTERACTION. A NEW SET OF VITALS WERE OBTAINED WELL THE BLOOD SUGAR. B/P WAS 212/73 AND BLOOD SUGAR WAS 313. THIS NURSE ATTEMPTED TO CALL DR. YEAGER BUT HE WAS NOT ABLE TO ANSWER. THIS NURSE THEN PROCEEDED TO GET THE CHARGE NURSE AND CALL A STROKE ALERT OVER HEAD AT 0830. THE CODE TEAM PROCEEDED TO SHOW UP QUICKLY DID DR YEAGER. DR YEAGER DID HIS ASSESSMENT AND ASKED FOR A MANUAL BLOOD PRESSURE TO BE OBTAINED AND TO GO AHEAD AND GIVE THE HUMALOG PER SLIDING SCALE, WHICH WAS 14U. THE BLOOD PRESSURE OBTAINED WAS 204/82 AT 08:38. AN ORDER FOR 10MG LABETALOL IVP WAS GIVEN VERBALLY BY DR YEAGER. THIS NURSE ADMINISTERED THE MEDICATION. 10 MINUTES PASSED BY THIS TIME. DR YEAGER WAS ASKING QUESTIONS TO THE . DR YEAGER REQUESTED A NEW B/P AND BLOOD SUGAR BE OBTAINED. THE TIME IS NOW 08:48 AND NEW B/P IS 210/90. AN ADDITIONAL 10MG LABETALOL IVP WAS GIVEN VERBALLY BY DR YEAGER. THIS NURSE ADMINISTER THE ORDERED MEDICATION. A NEW BLOOD SUGAR WAS OBTAINED PER REQUEST BY DR YEAGER. PTS BLOOD SUGAR WAS 282. DR YEAGER ORDERED AN ADDITIONAL 10U OF HUMALOG TO BE GIVEN. THIS NURSE GAVE THE ADDITIONAL 10U OF HUMALOG. PT WAS TAKEN TO CT SCANNER AFTER THIS BY THIS NURSE AND THE AID MEERA. PT SAFELY DOWN TO CT AND BROUGHT BACK UP BY US. PT IS RESTING IN BED. WILL CONTINUE TO MONITOR. PT IS GOING TO BE TRANSFERRED TO CSU PER DR YEAGER ORDERS.
--- NOTE | 2021-07-02 16:00 | PC.NURSE ---
Received from Med surg Pt is alert and awake, oriented x2. Pt noted to be shaking and tremulous. Assisted pt to use the BSC, moderate assistance needed due to her shaking. urinary incontinence noted. Kayley-cares provided for the pt. Call light provided.
[2021-07-02 16:08] LABS: Glucose Point of Care 249 mg/dL (70-110)
[2021-07-02] MEDS: nicardipine 20 MG/200 ML PREMIX 50 MG IV (16:19)
[2021-07-02] MEDS: enoxaparin 40 mg/0.4 mL Syringe SUBCUT (17:38)
[2021-07-02] MEDS: magnesium oxide 400 mg tablet PO (17:38)
--- NOTE | 2021-07-02 18:44 | PC.NURSE ---
Shift Note Frequent safety and comfort rounds continue. Orders and/or nursing care completed as indicated. Patient monitored for response to intervention and treatment(s). Education provided includes Nicardipine drip for hypertension, BP goal of <160 sytolic. Patient and/or telecommunications sales representative verbalizes understanding. Will continue to monitor.
[2021-07-02 22:05] LABS: Glucose Point of Care 292 mg/dL (70-110)
[2021-07-02] MEDS: nicardipine 20 MG/200 ML PREMIX 30 MG IV (22:49)
[2021-07-03] VITALS (101 sets, daily range): BP systolic 92–191; BP diastolic 52–120; PULSE 92–142; RESP 3–35; TEMP 36.6–37.2; O2SAT 84–100
[2021-07-03] MEDS: nitroglycerin 1 gm/inch oint Pkt 1 INCH TOPICAL (04:39)
[2021-07-03 04:51] LABS: Basophils % 0.2 %; Eosinophils % 0.1 %; Hematocrit 29.8 % (37.0-47.0); Hemoglobin 9.8 g/dL (11.5-15.3); Lymphocytes # 1.1 10^3/uL (0.8-4.8); Lymphocytes % 10.3 %; Mean Corpuscular HGB Conc 32.9 g/dL (30.0-36.0); Mean Corpuscular Hemoglobin 32.9 pg (28.0-34.0); Mean Platelet Volume 9.5 fL (7.4-10.4); Monocytes # 0.8 10^3/uL (0.2-0.9); Monocytes % 7.7 %; Neutrophils # 8.83 10^3/uL (1.8-7.7); Neutrophils % 81.1 %; Nucleated Red Blood Cells % 0 %; Platelet Count 203 10^3/cmm (130-400); Red Blood Count 2.98 10^6/uL (4.1-5.3); White Blood Count 10.9 10^3/uL (4.0-10.0)
[2021-07-03 05:24] LABS: Anion Gap 13.1 (5-19); Blood Urea Nitrogen 19 mg/dL (8-23); Calcium 9.7 mg/dL (8.5-10.5); Carbon Dioxide 37 mmol/L (22-29); Chloride 93 mmol/L (98-107); Glucose 224 mg/dL (65-115); Osmolality Calculated 299 mOsm/kg (285-295); Potassium 3.1 mmol/L (3.5-5.1); Sodium 140 mmol/L (136-145)
[2021-07-03 06:25] LABS: Glucose Point of Care 300 mg/dL (70-110)
[2021-07-03] MEDS: levothyroxine 150 mcg Tablet PO (06:44)
--- NOTE | 2021-07-03 07:54 | PC.NURSE ---
total assistance in feeding Pt encourage to do it independently however, she will not do it. I asked her she can open the box but she did not reply or try. assisted her in feeding and opening the milk and juice. Dr. Robert is notified.
[2021-07-03] MEDS: insulin lispro 100 unit/1 mL SUBCUT ×3 (08:07→18:38)
[2021-07-03] MEDS: metoprolol tartrate 50 mg Tablet 100 MG PO ×2 (08:08→19:54)
[2021-07-03] MEDS: bumetanide 1 mg Tablet PO (08:08)
[2021-07-03] MEDS: lisinopril 20 mg Tablet 40 MG PO (08:08)
[2021-07-03] MEDS: magnesium oxide 400 mg tablet PO ×2 (08:08→16:31)
[2021-07-03] MEDS: predniSONE 1 mg Tablet 2 MG PO (08:09)
[2021-07-03] MEDS: hyDRALAzine 10 mg Tablet PO ×3 (08:09→19:55)
[2021-07-03] MEDS: cyanocobalamin 1,000 mcg Tablet 500 MCG PO (08:09)
[2021-07-03] MEDS: pyridostigmine 60 mg Tablet 30 MG PO ×2 (08:09→16:33)
--- NOTE | 2021-07-03 08:22 | PC.NURSE ---
Cardene drip off IVP diltiazem 10 mg once given. HR drop to 80s post push. Then HR increased up to upper 120s, afib w/rvr. Metoprolol increased to 100 mg orally and administered. Lisinopril, hydralazine and Bumex given as scheduled. Cardene drip turned off. Verified w/ Dr. Robert. Received order via voalte message okay to turn off the cardene drip.
[2021-07-03] MEDS: potassium chloride ER 20 mEq Tablet 40 MEQ PO (10:30)
--- NOTE | 2021-07-03 10:52 | PM.PN ---
Subjective Subjective: Interval history: Cardizem IV push 10 mg given for A. fib RVR heart rate fluctuating between 130 and 150 Cardene drip turned off at 9 AM this morning Patient is needing assistant professor of business with almost everything in the hospital, I have encouraged her to try to eat on her own, after verbal encouragement she started to speak and then went back to using sign language, I gave her orange juice, she was able to drink orange juice without any aspiration or choking signs Nonfocal neuro exam No facial droop Blood sugar this morning 300, she was given 10 units Vitals/I&O/Wt Last Vital Signs Temp 98.9 F 07/03/21 04:30 Pulse 102 H 07/03/21 08:00 Resp 19 H 07/03/21 07:30 BP 148/96 07/03/21 10:32 Pulse Ox 97 07/03/21 10:32 07/02/21 07/03/21 07/03/21 23:59 06:59 14:59 Intake Total 200 / 200 Output Total 700 / 700 Balance -500 / -500 Physical Exam Narrative: EXAM NARRATIVE: Patient was in semi-Vincent position Saturating well on 2 L Nonfocal neuro exam NIH 0 No facial asymmetry EOMI, PERRLA She does use sign language to tell me that she wanted orange juice, however after verbal encouragement she started using her words Lower extremity nonpitting edema Abdomen distended visceral obesity Bilateral breath sounds no audible stridor or wheezing Lethargic and fatigued She is tender at multiple points on her body Data : 07/03/21 04:21 07/03/21 04:21 Micro: Microbiology 06/30/21 05:11 Urine Culture - Final Urine,Clean Catch Escherichia coli A&P Assessment and plan (1) Acute exacerbation of CHF (congestive heart failure): Status: Acute (2) Hypokalemia: Status: Acute (3) Weakness: Status: Acute (4) Multiple falls: Status: Acute (5) Fibromyalgia: Status: Acute (6) Orthostatic hypotension: Status: Acute (7) Dehydration: Status: Acute (8) Recurrent falls: Status: Acute (9) Chronic atrial fibrillation: Status: Acute (10) COPD (chronic obstructive pulmonary disease): Status: Chronic Qualifiers: COPD type: unspecified COPD Qualified Code(s): J44.9 - Chronic obstructive pulmonary disease, unspecified (11) Anxiety and depression: Status: Acute (12) Osteoarthritis of knees, bilateral: Status: Acute (13) Polypharmacy: Status: Chronic (14) Seronegative rheumatoid arthritis of both hands: Status: Acute (15) Sleep apnea in adult: Status: Chronic Additional A&P Information Acute preserved ejection heart failure exacerbation Currently on Bumex 1 mg daily Oxygen requirement has not worsened doing well on 2 L No need of cardiac work-up Mood disorder/anxiety Patient stops using her words from time to time and we do notice especially when she is in any kind of distress she was stopped communicating however no focal deficits were identified even during code stroke, NIH17 was given because she was not following commands and she was not able to speak CTA head and neck unremarkable CT head unremarkable A. fib RVR Increase metoprolol dose 100 mg twice a day Cardizem 10 mg IV push given this morning Hypertensive emergency: Cardene drip was initiated her blood pressure has been titrated down gradually, Cardene drip turned off this morning Hypokalemia: Repleted Magnesium improved with replenishment Multiple falls related to orthostatic hypotension: Continue pyridostigmine Fibromyalgia: B12 was normal, continue antidepressant Hyperglycemia: We will increase her Lantus dose, E. coli UTI: Sensitive to Augmentin, discontinue ceftriaxone start Augmentin Consistent carb cardiac diet Full code DVT prophylaxis Lovenox Awaiting custodial placement Attestations Medical Necessity Statement*: Continue medical management Time Spent in Patient Care: 16 - 35 minutes Coding Level of Care Code Acute Family Services Worker for Chg Fwd Diagnoses Acute exacerbation of CHF (congestive heart failure) I50.9 Hypokalemia E87.6 Weakness R53.1 Multiple falls R29.6 Fibromyalgia M79.7 Orthostatic hypotension I95.1 Dehydration E86.0 Recurrent falls R29.6 Chronic atrial fibrillation I48.20 COPD (chronic obstructive pulmonary disease) J44.9 COPD type: unspecified COPD Anxiety and depression F41.9; F32.9 Osteoarthritis of knees, bilateral M17.0 Polypharmacy Z79.899 Seronegative rheumatoid arthritis of both hands M06.041; M06.042 Sleep apnea in adult G47.30
[2021-07-03 11:17] LABS: Glucose Point of Care 357 mg/dL (70-110)
[2021-07-03] MEDS: methylphenidate 10 mg Tablet 5 MG PO (12:16)
[2021-07-03 12:42] LABS: Estmated Average Glucose 160; Hemoglobin A1C 7.2 % (4.0-6.0)
[2021-07-03] MEDS: enoxaparin 40 mg/0.4 mL Syringe SUBCUT (16:30)
[2021-07-03] MEDS: amoxicillin-clav 875-125 mg Tablet 1 TAB PO (16:31)
[2021-07-03 17:03] LABS: Glucose Point of Care 225 mg/dL (70-110)
--- NOTE | 2021-07-03 17:07 | PC.NURSE ---
Pt is up with PT Pt is sitting up in chair eating her dinner. Pt is awake, alert, oriented x3, conversing with nurse and PT. at bedside.
[2021-07-03 19:55] LABS: Glucose Point of Care 333 mg/dL (70-110)
--- NOTE | 2021-07-03 20:01 | PC.NURSE ---
Shift Note Frequent safety and comfort rounds continue. Orders and/or nursing care completed as indicated. Patient monitored for response to intervention and treatment(s). 1650 pm- Notified Dr Robert regaring pt's afib w/rvr HR in 110s to upper 120s. Received orders for cardizem ivp 10 mg and start pt on oral cardizem tonight. Education provided includes HR control, antibiotic for uti, nutrition supplement. Patient and/or personnel representative verbalizes understanding. Will continue to monitor.
[2021-07-03] MEDS: dilTIAZem ER (12HR) 60 mg Capsule PO (21:25)
[2021-07-03] MEDS: insulin glargine 100 units/1 mL 10 UNIT SUBCUT (21:27)
[2021-07-04] VITALS (40 sets, daily range): BP systolic 92–164; BP diastolic 42–103; PULSE 69–139; RESP 2–35; TEMP 36.1–36.8; O2SAT 90–100
--- NOTE | 2021-07-04 03:14 | PC.NURSE ---
Patient heart rate continues at around 130. BP continues to be lower than 160 systolic. Medications given for heart rate have been increased this shift. Metroprolol 100mg given. will continue to monitor rate of blood pressure and heart rate.
[2021-07-04 04:19] LABS: Anion Gap 11.5 (5-19); Blood Urea Nitrogen 24 mg/dL (8-23); Calcium 9.7 mg/dL (8.5-10.5); Carbon Dioxide 38 mmol/L (22-29); Chloride 95 mmol/L (98-107); Glucose 215 mg/dL (65-115); Osmolality Calculated 303 mOsm/kg (285-295); Potassium 3.5 mmol/L (3.5-5.1); Sodium 141 mmol/L (136-145)
[2021-07-04] MEDS: levothyroxine 150 mcg Tablet PO (05:58)
--- NOTE | 2021-07-04 06:23 | PC.NURSE ---
Frequent safety and comfort rounds continue. Orders and/or nursing care completed as indicated. Patient monitored for response to intervention and treatments of bp and heart rate treatments. Patient given several medications to reduce heart rate and bp. Heart rate continues at 130-135. PRN medications given for heartrate with scheduled medications. Education provided includes diabetes control. Patient and/or technical support representative verbalizes understanding. Will continue to monitor.
--- NOTE | 2021-07-04 07:21 | PC.NURSE ---
Patient with 3 briefs that were soiled with incontinent urine. Other measured urine charted. Will continue to monitor.
[2021-07-04 07:28] LABS: Glucose Point of Care 280 mg/dL (70-110)
[2021-07-04] MEDS: digoxin 250 mcg/ml INJ 2 mL 500 MCG IVP (07:47)
[2021-07-04] MEDS: predniSONE 1 mg Tablet 2 MG PO (07:48)
[2021-07-04] MEDS: metoprolol tartrate 50 mg Tablet 100 MG PO ×2 (07:48→20:58)
[2021-07-04] MEDS: amoxicillin-clav 875-125 mg Tablet 1 TAB PO (07:48)
[2021-07-04] MEDS: magnesium oxide 400 mg tablet PO ×2 (07:48→17:22)
[2021-07-04] MEDS: bumetanide 1 mg Tablet PO (07:48)
[2021-07-04] MEDS: potassium chloride ER 20 mEq Tablet 40 MEQ PO (07:48)
[2021-07-04] MEDS: hyDRALAzine 10 mg Tablet PO (07:48)
[2021-07-04] MEDS: cyanocobalamin 1,000 mcg Tablet 500 MCG PO (07:48)
[2021-07-04] MEDS: lisinopril 20 mg Tablet 40 MG PO (07:49)
[2021-07-04] MEDS: insulin lispro 100 unit/1 mL SUBCUT ×3 (07:50→17:22)
--- NOTE | 2021-07-04 08:30 | ECG_ITS ---
[facility] Test Date: 2021-07-04 Pat Name: Myesha Parker Department: Room: 103 Gender: Female Quality Control Engineering Technician: : [id number] Requested By: Tim Robert Order Number: [id number] Wilbur MD: Victoriano White M.D. Measurements Intervals [place] Rate: 103 P: 245 ME: 210 QRS: -70 QRSD: 145 T: 88 QT: 359 QTc: 470 Interpretive Statements ECTOPIC ATRIAL TACHYCARDIA WITH FIRST DEGREE AV BLOCK WITH FREQUENT SUPRAVENTRICULAR PREMATURE COMPLEXES RIGHT BUNDLE BRANCH BLOCK [120+ ms QRS DURATION, UPRIGHT V1, 40+ ms S IN I/aVL/V4/V5/V6] LEFT ANTERIOR FASCICULAR BLOCK [QRS AXIS <= -45, QR IN I, RS IN II] LEFT VENTRICULAR HYPERTROPHY AND ST-T CHANGE [VOLTAGE CRITERIA PLUS ST/T ABNORMALITY] POSSIBLE SEPTAL MYOCARDIAL INFARCTION , OF INDETERMINATE AGE [30 ms Q WAVE IN V1/V2] Compared to ECG 07/02/2021 08:37:38 ST (T wave) deviation now present Sinus rhythm no longer present Myocardial infarct finding still present Electronically Signed On 07-04-2021 16:46:27 PROGRAM ADMINISTRATOR by Victoriano White M.D. [id number]
--- NOTE | 2021-07-04 08:36 | PC.SOCIAL ---
Pg 2 IMM Explained to pt Pg 2 IMM. No question voiced. Provided pt a copy. Initialed, dated, & timed a copy & placed in chart.
[2021-07-04] MEDS: dilTIAZem 30 mg Tablet PO ×3 (08:47→20:58)
[2021-07-04] MEDS: pyridostigmine 60 mg Tablet 30 MG PO ×2 (09:18→17:22)
[2021-07-04 11:09] LABS: Glucose Point of Care 369 mg/dL (70-110)
--- NOTE | 2021-07-04 11:59 | PM.PN ---
Subjective Subjective: Interval history: This morning patient remains in A. fib RVR heart rate fluctuating between 130s to 140s, for some time on telemetry also noticed regular SVT rhythm, she was given digoxin IV push 500 mcg this morning, second dose at 3 PM she did respond to digoxin I have also added Cardizem 30 mg every 6 hours, patient is much more awake and alert today and willing to go to a halfway, she is awaiting approval and acceptance innovation manager updated Potassium and magnesium within normal range Vitals/I&O/Wt Last Vital Signs Temp 97.9 F 07/04/21 10:46 Pulse 81 07/04/21 10:46 Resp 27 H 07/04/21 10:46 BP 164/42 07/04/21 10:46 Pulse Ox 96 07/04/21 10:46 07/03/21 07/04/21 07/04/21 22:59 06:59 14:59 Intake Total 360 / 920 110 / 1030 300 / 300 Output Total 2000 / 2700 200 / 200 Balance 360 / 220 -1890 / -1670 100 / 100 Physical Exam Narrative: EXAM NARRATIVE: Patient was much more awake and alert this morning, she was able to eat breakfast on her own Nonfocal neuro exam She is not moaning in pain today Not complaining of chest pain S1, S2 variable Looks euvolemic today Lower extremity no edema Abdomen soft distended visceral obesity Nonfocal neuro exam EOMI, PERRLA Data : 07/03/21 04:21 07/04/21 03:20 A&P Assessment and plan (1) Acute exacerbation of CHF (congestive heart failure): Status: Acute (2) Hypokalemia: Status: Acute (3) Weakness: Status: Acute (4) Multiple falls: Status: Acute (5) Orthostatic hypotension: Status: Acute (6) Fibromyalgia: Status: Acute (7) Recurrent falls: Status: Acute (8) Chronic atrial fibrillation: Status: Acute (9) Atrial fibrillation with RVR: Status: Acute Additional A&P Information Acute CHF exacerbation Preserved ejection fraction heart failure exacerbation Today patient is looking euvolemic I will continue her p.o. diuretic regimen Blood pressure has been stable She is not complaining active chest pain A. fib RVR: Metoprolol dose was increased yesterday 200 mg twice daily, started digoxin today, second dose of digoxin at 3 PM, she will get total 750 mcg, start p.o. digoxin 1 2 5 mcg tomorrow, also added Cardizem 30 mg every 6 hours TSH, mag and potassium within normal range She does have history of A. fib, not a candidate for anticoagulation secondary to risk of fall due to orthostatic hypotension Orthostatic hypotension: Started pyridostigmine 30 mg twice daily do not use midodrine, she had side effect of midodrine with supine hypertension Fibromyalgia: Continue antidepressants Awaiting halfway placement Cardiac consistent carb diet Hyperglycemia type 2 diabetes: I have adjusted her insulin regimen, Full code Chronic hypoxia currently saturating well on 2 L nasal cannula, DVT prophylaxis Lovenox Attestations Medical Necessity Statement*: Anticipating discharge tomorrow Time Spent in Patient Care: 16 - 35 minutes Coding Level of Care Code Acute Ceo And Founder for Dougie Samson Diagnoses Acute exacerbation of CHF (congestive heart failure) I50.9 Hypokalemia E87.6 Weakness R53.1 Multiple falls R29.6 Orthostatic hypotension I95.1 Fibromyalgia M79.7 Recurrent falls R29.6 Chronic atrial fibrillation I48.20 Atrial fibrillation with RVR I48.91
[2021-07-04] MEDS: enoxaparin 40 mg/0.4 mL Syringe SUBCUT (14:02)
[2021-07-04] MEDS: amlodipine 10 mg Tablet PO (14:03)
[2021-07-04] MEDS: digoxin 250 mcg/ml INJ 2 mL IVP (14:03)
[2021-07-04 16:30] LABS: Glucose Point of Care 175 mg/dL (70-110)
[2021-07-04 20:31] LABS: Glucose Point of Care 321 mg/dL (70-110)
[2021-07-04] MEDS: insulin glargine 100 units/1 mL 15 UNIT SUBCUT (20:59)
[2021-07-05] VITALS (51 sets, daily range): BP systolic 95–185; BP diastolic 40–98; PULSE 66–115; RESP 3–31; TEMP 36.3–37.1; O2SAT 83–100
--- NOTE | 2021-07-05 00:14 | PC.NURSE ---
Patient fs 321. No order for coverage at bedtime. Patient known to have low glucose when not eating. No additional coverage ordered for patient. Will continue to monitor.
--- NOTE | 2021-07-05 01:01 | PC.NURSE ---
Patient sleeping on rounding. BP re taken Will continue to monitor.
--- NOTE | 2021-07-05 01:24 | PC.NURSE ---
Patient BP reading 185/85. went into room to check and patient had moved cuff and folded into her arm. Re check 95/65. Patient receiving multiple medications to lower heartrate and bp. Will continue to monitor.
[2021-07-05] MEDS: dilTIAZem 30 mg Tablet PO ×4 (03:27→22:23)
[2021-07-05 04:30] LABS: Anion Gap 8.7 (5-19); Blood Urea Nitrogen 26 mg/dL (8-23); Calcium 9.7 mg/dL (8.5-10.5); Carbon Dioxide 40 mmol/L (22-29); Chloride 92 mmol/L (98-107); Glucose 236 mg/dL (65-115); Magnesium 2.1 mg/dL (1.7-2.3); Osmolality Calculated 296 mOsm/kg (285-295); Potassium 3.7 mmol/L (3.5-5.1); Sodium 137 mmol/L (136-145)
[2021-07-05] MEDS: levothyroxine 150 mcg Tablet PO (06:22)
[2021-07-05 06:38] LABS: Glucose Point of Care 251 mg/dL (70-110)
[2021-07-05] MEDS: insulin lispro 100 unit/1 mL SUBCUT ×3 (08:56→17:03)
[2021-07-05] MEDS: metoprolol tartrate 50 mg Tablet 100 MG PO ×2 (09:03→22:28)
[2021-07-05] MEDS: magnesium oxide 400 mg tablet PO ×2 (09:07→17:03)
[2021-07-05] MEDS: amlodipine 10 mg Tablet PO (09:07)
[2021-07-05] MEDS: cyanocobalamin 1,000 mcg Tablet 500 MCG PO (09:07)
[2021-07-05] MEDS: lisinopril 20 mg Tablet 40 MG PO (09:07)
[2021-07-05] MEDS: bumetanide 1 mg Tablet PO (09:07)
[2021-07-05] MEDS: digoxin 125 mcg Tablet PO (09:08)
[2021-07-05] MEDS: pyridostigmine 60 mg Tablet 30 MG PO ×2 (10:20→17:03)
--- NOTE | 2021-07-05 11:14 | PM.PN ---
Subjective Subjective: Interval history: Patient was seen and examined this is at the bedside patient is stating that she is back to her baseline, no active chest pain or shortness of breath however feeling sleepy She takes Humira every 14 days She is afebrile, A. fib RVR has improved with loading dose of digoxin, digoxin was held at the time of admission, she takes 125 mcg at home as well She does get hypertensive from time antihypertensive regimen to be optimized Awaiting custodial placement Vitals/I&O/Wt Last Vital Signs Temp 98.6 F 07/05/21 08:00 Pulse 115 H 07/05/21 09:08 Resp 28 H 07/05/21 08:00 BP 152/92 07/05/21 08:00 Pulse Ox 97 07/05/21 08:00 07/04/21 07/05/21 07/05/21 22:59 06:59 14:59 Intake Total 480 / 900 200 / 1100 Output Total 600 / 800 Balance -120 / 100 200 / 300 Weight last 48 hrs Weight 99.926 kg Physical Exam Narrative: EXAM NARRATIVE: Patient was laying supine Clinically does look euvolemic Able to move upper and lower extremities NIH 0 S1, S2 Fatigue and lethargic Saturating well on 2 L nasal cannula which is her home requirement Abdomen distended with obesity Nonpitting lower extremity edema Data : 07/03/21 04:21 07/05/21 03:14 A&P Assessment and plan (1) Atrial fibrillation with RVR: Status: Acute (2) Acute exacerbation of CHF (congestive heart failure): Status: Acute (3) Hypokalemia: Status: Acute (4) Fibromyalgia: Status: Acute (5) Weakness: Status: Acute (6) Multiple falls: Status: Acute (7) Orthostatic hypotension: Status: Acute (8) Chronic obstructive lung disease: Status: Acute (9) Chronic atrial fibrillation: Status: Acute (10) Falls frequently: Status: Acute (11) COPD (chronic obstructive pulmonary disease): Status: Chronic Qualifiers: COPD type: unspecified COPD Qualified Code(s): J44.9 - Chronic obstructive pulmonary disease, unspecified (12) Sleep apnea in adult: Status: Chronic (13) Osteoarthritis of knees, bilateral: Status: Acute (14) Seronegative rheumatoid arthritis of both hands: Status: Acute Additional A&P Information Recurrent falls related to orthostatic hypotension: I have discontinued her midodrine, please continue pyridostigmine 30 mg twice daily from now onwards patient is very fatigued and lethargic does not cooperate well with physical therapist, going custodial for short-term rehab Acute CHF exacerbation: Preserved ejection fraction heart rate exacerbation related to tachyarrhythmia, continue p.o. diuretic regimen for now Chronic hypoxic restaurant failure currently saturating well on 2 L nasal cannula, she does use 2 L at home Code stroke was called when patient became mute at that time blood sugar was 213 blood pressure systolic was above 200, she received multiple dose of labetalol, CTA head and CT head and neck unremarkable, she was transferred to cardiac stepdown unit for Cardene drip which improved her blood pressure, her symptoms resolved within 30 minutes, patient was not diagnosed with stroke, as per the at home whenever her sugar is high she does exhibit these kind of neurological changes, Chronic A. fib: RVR has improved: I have resumed her digoxin, increase her metoprolol dose and added Cardizem Hypertensive urgency: Optimize antihypertensive regimen I am concerned about polypharmacy now she is requiring Cardizem, metoprolol, digoxin for rate control which can also reduce blood pressure on top of her other antihypertensive regimen Avoid midodrine and clonidine Frequent falls are related to orthostatic hypotension does why she is not in any anticoagulating agent Rheumatoid arthritis osteoarthritis: Takes Humira every 14 days, methotrexate, continue folic acid at the time of discharge Awaiting custodial placement Cardiac diet DVT prophylaxis Lovenox Hyperglycemia, check A1c level, added Lantus with sliding scale, hemoglobin A1c 7.2 , Attestations Medical Necessity Statement*: Awaiting custodial placement Time Spent in Patient Care: 16 - 35 minutes Coding Level of Care Code Acute Medical Record Coder for Dougie Fwd Diagnoses Atrial fibrillation with RVR I48.91 Acute exacerbation of CHF (congestive heart failure) I50.9 Hypokalemia E87.6 Fibromyalgia M79.7 Weakness R53.1 Multiple falls R29.6 Orthostatic hypotension I95.1 Chronic obstructive lung disease J44.9 Chronic atrial fibrillation I48.20 Falls frequently R29.6 COPD (chronic obstructive pulmonary disease) J44.9 COPD type: unspecified COPD Sleep apnea in adult G47.30 Osteoarthritis of knees, bilateral M17.0 Seronegative rheumatoid arthritis of both hands M06.041; M06.042
[2021-07-05 11:17] LABS: Glucose Point of Care 293 mg/dL (70-110)
[2021-07-05] MEDS: ondansetron 2 mg/ML SDV 2 mL 4 MG IVP (13:17)
[2021-07-05] MEDS: enoxaparin 40 mg/0.4 mL Syringe SUBCUT (15:27)
--- NOTE | 2021-07-05 15:28 | PC.OT ---
OT treatment attempted x3 (morning, afternoon, late afternoon). Patient declined morning therapy and was sound asleep on last 2 attempts.
[2021-07-05 16:51] LABS: Glucose Point of Care 174 mg/dL (70-110)
[2021-07-05 20:47] LABS: Glucose Point of Care 208 mg/dL (70-110)
[2021-07-05] MEDS: insulin glargine 100 units/1 mL 15 UNIT SUBCUT (22:23)
[2021-07-06] VITALS (12 sets, daily range): BP systolic 129–170; BP diastolic 51–80; PULSE 63–83; RESP 16–28; TEMP 36.2–37.3; O2SAT 94–99
[2021-07-06] MEDS: dilTIAZem 30 mg Tablet PO ×4 (04:00→19:56)
[2021-07-06 04:29] LABS: Anion Gap 13.6 (5-19); Blood Urea Nitrogen 26 mg/dL (8-23); Calcium 9.5 mg/dL (8.5-10.5); Carbon Dioxide 38 mmol/L (22-29); Chloride 92 mmol/L (98-107); Glucose 180 mg/dL (65-115); Magnesium 2.1 mg/dL (1.7-2.3); Osmolality Calculated 299 mOsm/kg (285-295); Potassium 3.6 mmol/L (3.5-5.1); Sodium 140 mmol/L (136-145)
[2021-07-06] MEDS: acetaminophen 325 mg Tablet 650 MG PO ×2 (05:21→10:05)
[2021-07-06] MEDS: levothyroxine 150 mcg Tablet PO (05:22)
--- NOTE | 2021-07-06 06:29 | PC.NURSE ---
Frequent safety and comfort rounds continue. Orders and/or nursing care completed as indicated. Patient monitored for response to intervention and treatment(s). Education provided includes importance of turning self q2 hours. . Patient and/or electroplating sales representative verbalizes understanding. Will continue to monitor.
[2021-07-06 06:37] LABS: Glucose Point of Care 192 mg/dL (70-110)
[2021-07-06] MEDS: insulin lispro 100 unit/1 mL SUBCUT ×3 (08:18→17:40)
--- NOTE | 2021-07-06 09:07 | PC.SOCIAL ---
IMM Update Pg. 2 of IMM updated and reviewed with patient, who verbalized understanding. Copy provided.
[2021-07-06] MEDS: cyanocobalamin 1,000 mcg Tablet 500 MCG PO (09:09)
[2021-07-06] MEDS: lisinopril 20 mg Tablet 40 MG PO (09:10)
[2021-07-06] MEDS: magnesium oxide 400 mg tablet PO ×2 (09:10→17:39)
[2021-07-06] MEDS: digoxin 125 mcg Tablet PO (09:10)
[2021-07-06] MEDS: amlodipine 10 mg Tablet PO (09:10)
[2021-07-06] MEDS: pyridostigmine 60 mg Tablet 30 MG PO ×2 (09:10→17:39)
[2021-07-06] MEDS: bumetanide 1 mg Tablet PO (09:10)
[2021-07-06] MEDS: metoprolol tartrate 50 mg Tablet 100 MG PO ×2 (10:02→19:56)
--- NOTE | 2021-07-06 10:13 | PC.CHAP ---
Pastoral Care Encounter/Spiritual Assessment Type of Contact [] Declined hot tamale worker visit [] Patient/Family/Request visit [] Outpatient visit [] Follow-up visit [] Physician referral [] Code/Alert [x] Routine visit [] Staff referral [] Actively dying [] Patient sleeping [x] Family support [] [] Out of room [] Palliative care [] [] Receiving care in room [] Pre-surgical visit [] Trauma [] Long length of stay [] ICU visit [] Other: Relational/Emotional Strength [] Patient feels connected with others/family/visitors/staff [] Distress [] Loneliness/isolation [] Abandonment Spirituality of Patient [] Person of Joelle [] Attends Confucianist of their Joelle [] Believes in Prayer [] Reads Bible or Gnosticism materials [] There are Spiritual issues to be addressed Cemetery Warden Interventions [x] Prayer [x] Active listening [x] Non-anxious presence [x] Spiritual/emotional support [] Crisis/trauma care [] Spiritual counseling [] Bereavement support [] Provided bereavement packet [] Provided Bible/devotional materials [] Provided toy/stuffed animal, coloring book to patient or family member [] Provided Communion [] Anointing/[place] [] Salvation [x] Completed spiritual assessment [] Other: Impact on Illness or Injury [] Angry [] Fearful [] Anxious [] Often cries [] Exhaustion [] Unable to work [] Unable to attend christian [] Unable to walk/stand [] Unable to read [] Unable to drive [] Unable to eat/drink [] Unable to sleep [] Unable to be with family [] Patient intubated [] Other: Summary Nona as patient likes to be called.. is resting well, but not a lot of energy...headache .. spouse present-- brushing hair and administering to her care... Time spent with patient 5 min
[2021-07-06 12:48] LABS: Glucose Point of Care 314 mg/dL (70-110)
--- NOTE | 2021-07-06 14:21 | PM.PN ---
Subjective Subjective: Interval history: Seen this morning. Patient was sleeping when I saw her. She did wake up and speak to me. She stated that she was doing well and had no complaints this morning. Vitals/I&O/Wt Last Vital Signs Temp 98.1 F 07/06/21 12:00 Pulse 68 07/06/21 12:00 Resp 18 07/06/21 12:00 BP 130/80 07/06/21 12:00 Pulse Ox 99 07/06/21 12:00 07/05/21 07/06/21 07/06/21 22:59 06:59 14:59 Intake Total 100 / 100 200 / 300 840 / 840 Output Total 300 / 1200 600 / 1800 Balance -200 / -1100 -400 / -1500 840 / 840 Weight last 48 hrs Weight 99.926 kg Physical Exam Narrative: EXAM NARRATIVE: General: Alert oriented x3, patient seen laying in bed quite sleepy. I just woke her up from her sleep. She was seen pretty early around 7:45 AM. She did look fatigued. HEENT: Normocephalic, atraumatic, EOMI, breathing room air. Cardio: Regular rate rhythm, normal S1-S2, no murmurs rubs gallops, Respiratory: Good bilateral air entry, no wheezes no rhonchi appreciated GI: Abdomen soft, rounded abdomen, obese, nontender, bowel sounds + Behavior: Appropriate and cooperative Extremities: Nonpitting lower extremity trace edema present. Data : 07/03/21 04:21 07/06/21 03:03 A&P Assessment and plan (1) Atrial fibrillation with RVR: Status: Acute (2) Acute exacerbation of CHF (congestive heart failure): Status: Acute (3) Hypokalemia: Status: Acute (4) Fibromyalgia: Status: Acute (5) Weakness: Status: Acute (6) Multiple falls: Status: Acute (7) Orthostatic hypotension: Status: Acute (8) Chronic obstructive lung disease: Status: Acute (9) Seronegative rheumatoid arthritis of both hands: Status: Acute (10) Osteoarthritis of knees, bilateral: Status: Acute Additional A&P Information Recurrent falls related to orthostatic hypotension: Midodrine was discontinued. We will continue pyridostigmine 30 mg twice daily. Patient to go to senior care for short-term rehab. Patient is currently not on any anticoagulation Due to her frequent falls. Acute CHF exacerbation: Preserved ejection fraction heart rate exacerbation related to tachyarrhythmia, continue p.o. diuretic regimen for now Chronic hypoxic restaurant failure currently saturating well on 2 L nasal cannula, she does use 2 L at home It is evident from the notes that code stroke was called on this patient 07/05 and patient became mute during that time. Blood sugar was 213, systolic blood pressure was 200. She did receive multiple doses of labetalol. CT head and neck were unremarkable. She also was on a Cardene drip in the cardiac stepdown unit briefly to improve her blood pressure. Symptoms resolved in 30 minutes patient had patient was not diagnosed with stroke. Patient's did say that when patient's blood sugar is high she exhibits the scattered neurologic changes. Chronic A. fib: RVR has improved: Continue Cardizem, metoprolol, digoxin. Hypertensive urgency: Optimize antihypertensive regimen I am concerned about polypharmacy now she is requiring Cardizem, metoprolol, digoxin for rate control which can also reduce blood pressure on top of her other antihypertensive regimen Rheumatoid arthritis osteoarthritis: Takes Humira every 14 days, methotrexate, continue folic acid at the time of discharge Awaiting senior care placement Cardiac diet DVT prophylaxis Lovenox Hyperglycemia, check A1c level, added Lantus with sliding scale, hemoglobin A1c 7.2 , Attestations Medical Necessity Statement*: Awaiting senior care placement. Time Spent in Patient Care: 16 - 35 minutes Coding Level of Care Code Acute Psychological Operations Specialist for Dougie Samson Diagnoses Atrial fibrillation with RVR I48.91 Acute exacerbation of CHF (congestive heart failure) I50.9 Hypokalemia E87.6 Fibromyalgia M79.7 Weakness R53.1 Multiple falls R29.6 Orthostatic hypotension I95.1 Chronic obstructive lung disease J44.9 Seronegative rheumatoid arthritis of both hands M06.041; M06.042 Osteoarthritis of knees, bilateral M17.0
[2021-07-06] MEDS: enoxaparin 40 mg/0.4 mL Syringe SUBCUT (16:09)
[2021-07-06 17:25] LABS: Glucose Point of Care 158 mg/dL (70-110)
[2021-07-06] MEDS: ondansetron 2 mg/ML SDV 2 mL 4 MG IVP (19:57)
[2021-07-06] MEDS: insulin glargine 100 units/1 mL 15 UNIT SUBCUT (19:58)
[2021-07-06 20:38] LABS: Glucose Point of Care 236 mg/dL (70-110)
--- NOTE | 2021-07-06 22:57 | ECG_ITS ---
[facility] Test Date: 2021-07-06 Pat Name: Myesha Parker Department: Room: 103 Gender: Female It Risk Advisor: : [id number] Requested By: Joey Albrecht Order Number: [id number] Wilbur MD: Keisha Coronel M.D. Measurements Intervals [place] Rate: 60 P: -25 TN: 202 QRS: -71 QRSD: 166 T: 110 QT: 499 QTc: 503 Interpretive Statements SINUS RHYTHM RIGHT BUNDLE BRANCH BLOCK [120+ ms QRS DURATION, UPRIGHT V1, 40+ ms S IN I/aVL/V4/V5/V6] LEFT ANTERIOR FASCICULAR BLOCK [QRS AXIS <= -45, QR IN I, RS IN II] LEFT VENTRICULAR HYPERTROPHY AND ST-T CHANGE [VOLTAGE CRITERIA PLUS ST/T ABNORMALITY] POSSIBLE SEPTAL MYOCARDIAL INFARCTION , OF INDETERMINATE AGE [30 ms Q WAVE IN V1/V2] Compared to ECG 07/04/2021 09:27:01 First degree AV block no longer present ST (T wave) deviation still present Myocardial infarct finding still present Electronically Signed On 07-07-2021 22:38:42 FRUIT CUTTER by Keisha Coronel M.D. [id number]
--- NOTE | 2021-07-06 23:00 | PC.NURSE ---
Patient c/o chest pain with radiation to left shoulder. Informed Dr Whitmore and received telephone order for EKG, troponin, and Nitrostat 0.4mg sublingual q5min as needed. RBVO
[2021-07-06] MEDS: nitroglycerin 0.4 mg sublingual Tablet SUBLINGUAL ×2 (23:17→23:23)
[2021-07-07] VITALS (11 sets, daily range): BP systolic 102–157; BP diastolic 42–75; PULSE 60–82; RESP 15–25; TEMP 36.4–37; O2SAT 96–98
[2021-07-07 00:09] LABS: Troponin T (5th) Once 46 ng/L (0-10)
[2021-07-07] MEDS: dilTIAZem 30 mg Tablet PO ×4 (01:52→20:50)
[2021-07-07 03:48] LABS: Basophils # 0.1 10^3/uL (0.0-0.1); Basophils % 0.7 %; Eosinophils # 0.1 10^3/uL (0.0-0.8); Eosinophils % 1.2 %; Hematocrit 29.7 % (37.0-47.0); Lymphocytes # 1.4 10^3/uL (0.8-4.8); Lymphocytes % 20.3 %; Mean Corpuscular HGB Conc 33.7 g/dL (30.0-36.0); Mean Corpuscular Hemoglobin 33.1 pg (28.0-34.0); Mean Corpuscular Volume 98.3 fl (81-99); Mean Platelet Volume 10.1 fL (7.4-10.4); Monocytes # 0.8 10^3/uL (0.2-0.9); Monocytes % 11.3 %; Neutrophils # 4.45 10^3/uL (1.8-7.7); Neutrophils % 65.9 %; Nucleated Red Blood Cells % 0 %; Platelet Count 207 10^3/cmm (130-400); Red Blood Count 3.02 10^6/uL (4.1-5.3); Red Cell Distribution Width 14.1 % (12.1-15.1); White Blood Count 6.8 10^3/uL (4.0-10.0)
[2021-07-07 04:21] LABS: Anion Gap 10.6 (5-19); Blood Urea Nitrogen 29 mg/dL (8-23); Calcium 9.4 mg/dL (8.5-10.5); Chloride 90 mmol/L (98-107); Glucose 234 mg/dL (65-115); Osmolality Calculated 299 mOsm/kg (285-295); Potassium 3.6 mmol/L (3.5-5.1); Sodium 138 mmol/L (136-145)
[2021-07-07 04:23] LABS: Carbon Dioxide 41 mmol/L (22-29)
[2021-07-07] MEDS: levothyroxine 150 mcg Tablet PO (04:27)
--- NOTE | 2021-07-07 05:47 | PC.NURSE ---
Shift Note Frequent safety and comfort rounds continue. Orders and/or nursing care completed as indicated. Patient monitored for response to intervention and treatment(s). Education provided includes nitroglycerin sublingual. Patient verbalized complete understanding. Patient reports improved chest pain. Observed patient to be more anxious. Also reports feeling nervous about discharge to SNF for rehab. No other complaint. No distress observed. Will continue to monitor.
[2021-07-07 06:46] LABS: Troponin T (5th) Once 41 ng/L (0-10)
[2021-07-07 06:58] LABS: Glucose Point of Care 224 mg/dL (70-110)
[2021-07-07] MEDS: lisinopril 20 mg Tablet 40 MG PO (09:00)
[2021-07-07] MEDS: bumetanide 1 mg Tablet PO (09:00)
[2021-07-07] MEDS: digoxin 125 mcg Tablet PO (09:00)
[2021-07-07] MEDS: magnesium oxide 400 mg tablet PO ×2 (09:00→17:56)
[2021-07-07] MEDS: insulin lispro 100 unit/1 mL SUBCUT ×3 (09:01→17:56)
[2021-07-07] MEDS: amlodipine 10 mg Tablet PO (09:01)
[2021-07-07] MEDS: cyanocobalamin 1,000 mcg Tablet 500 MCG PO (09:01)
[2021-07-07] MEDS: metoprolol tartrate 50 mg Tablet 100 MG PO ×2 (10:00→20:50)
[2021-07-07] MEDS: pyridostigmine 60 mg Tablet 30 MG PO ×2 (10:00→17:56)
--- NOTE | 2021-07-07 10:53 | PC.OT ---
OT tx attempted. Patient declined tx this date, stating she did not want to get up. Multiple txs offered but patient continued to decline tx.
[2021-07-07 10:59] LABS: Glucose Point of Care 278 mg/dL (70-110)
--- NOTE | 2021-07-07 12:28 | PM.PN ---
Subjective Subjective: Interval history: Seen and examined this morning. Sitting up in recliner eating breakfast. present at bedside. She states she feels a lot better compared to admission. Reviewed. No acute events overnight. Vitals/I&O/Wt Last Vital Signs Temp 97.6 F 07/07/21 03:12 Pulse 82 07/07/21 10:13 Resp 25 H 07/07/21 10:13 BP 156/69 07/07/21 10:13 Pulse Ox 98 07/07/21 03:12 07/06/21 07/07/21 07/07/21 22:59 06:59 14:59 Intake Total 1040 / 1880 120 / 2000 420 / 420 Output Total 150 / 150 500 / 650 250 / 250 Balance 890 / 1730 -380 / 1350 170 / 170 Physical Exam Narrative: EXAM NARRATIVE: General: Alert oriented x3, seen sitting up in recliner appearing very comfortable. present at bedside. On baseline 2 L nasal cannula. HEENT: Normocephalic, atraumatic, EOMI, breathing room air. Cardio: Regular rate rhythm, normal S1-S2, no murmurs rubs gallops, Respiratory: Good bilateral air entry, no wheezes no rhonchi appreciated GI: Abdomen soft, rounded abdomen, obese, nontender, bowel sounds + Behavior: Appropriate and cooperative Extremities: Nonpitting lower extremity trace edema present. Data : 07/07/21 03:08 07/07/21 03:08 A&P Assessment and plan (1) Atrial fibrillation with RVR: Status: Acute (2) Acute exacerbation of CHF (congestive heart failure): Status: Acute (3) Hypokalemia: Status: Acute (4) Fibromyalgia: Status: Acute (5) Weakness: Status: Acute (6) Multiple falls: Status: Acute (7) Orthostatic hypotension: Status: Acute (8) Chronic obstructive lung disease: Status: Acute (9) Seronegative rheumatoid arthritis of both hands: Status: Acute (10) Osteoarthritis of knees, bilateral: Status: Acute Additional A&P Information Recurrent falls related to orthostatic hypotension: Midodrine was discontinued. We will continue pyridostigmine 30 mg twice daily. [facility]. Patient is currently not on any anticoagulation Due to her frequent falls. Acute CHF exacerbation: Preserved ejection fraction heart rate exacerbation related to tachyarrhythmia, continue p.o. diuretic regimen for now Chronic hypoxic restaurant failure currently saturating well on 2 L nasal cannula, she does use 2 L at home It is evident from the notes that code stroke was called on this patient 07/05 and patient became mute during that time. Blood sugar was 213, systolic blood pressure was 200. She did receive multiple doses of labetalol. CT head and neck were unremarkable. She also was on a Cardene drip in the cardiac stepdown unit briefly to improve her blood pressure. Symptoms resolved in 30 minutes patient had patient was not diagnosed with stroke. Patient's did say that when patient's blood sugar is high she exhibits the scattered neurologic changes. Chronic A. fib: RVR has improved: Continue Cardizem, metoprolol, digoxin. Hypertensive urgency: Optimize antihypertensive regimen I am concerned about polypharmacy now she is requiring Cardizem, metoprolol, digoxin for rate control which can also reduce blood pressure on top of her other antihypertensive regimen Rheumatoid arthritis osteoarthritis: Takes Humira every 14 days, methotrexate, continue folic acid at the time of discharge [facility]waiting detention placement Cardiac diet DVT prophylaxis Lovenox Hyperglycemia, check A1c level, added Lantus with sliding scale, hemoglobin A1c 7.2 , Attestations Medical Necessity Statement*: Awaiting detention placement. Coding Level of Care Code Acute Manufacturing Mechanic for Dougie Samson Diagnoses Atrial fibrillation with RVR I48.91 Acute exacerbation of CHF (congestive heart failure) I50.9 Hypokalemia E87.6 Fibromyalgia M79.7 Weakness R53.1 Multiple falls R29.6 Orthostatic hypotension I95.1 Chronic obstructive lung disease J44.9 Seronegative rheumatoid arthritis of both hands M06.041; M06.042 Osteoarthritis of knees, bilateral M17.0
[2021-07-07] MEDS: enoxaparin 40 mg/0.4 mL Syringe SUBCUT (15:49)
[2021-07-07 18:09] LABS: Glucose Point of Care 188 mg/dL (70-110)
[2021-07-07 20:33] LABS: Glucose Point of Care 199 mg/dL (70-110)
[2021-07-07] MEDS: acetaZOLAMIDE 250 mg Tablet PO (20:50)
[2021-07-07] MEDS: insulin glargine 100 units/1 mL 15 UNIT SUBCUT (20:51)
--- NOTE | 2021-07-07 21:26 | PC.NURSE ---
Received report from TAYO Diamond. Patient resting in bed watching TV. Assisted patient to BSC with standby assist. Patient tolerated well. Denies pain presently. No other distresses observed.
[2021-07-08] VITALS (12 sets, daily range): BP systolic 106–128; BP diastolic 44–54; PULSE 61–70; RESP 17–28; TEMP 36–36.9; O2SAT 95–99
[2021-07-08] MEDS: dilTIAZem 30 mg Tablet PO ×4 (03:39→20:37)
[2021-07-08] MEDS: levothyroxine 150 mcg Tablet PO (03:39)
[2021-07-08 05:32] LABS: Anion Gap 14.6 (5-19); Blood Urea Nitrogen 30 mg/dL (8-23); Calcium 9.5 mg/dL (8.5-10.5); Carbon Dioxide 34 mmol/L (22-29); Chloride 90 mmol/L (98-107); Glucose 211 mg/dL (65-115); Osmolality Calculated 292 mOsm/kg (285-295); Potassium 3.6 mmol/L (3.5-5.1); Sodium 135 mmol/L (136-145)
[2021-07-08 06:50] LABS: Glucose Point of Care 193 mg/dL (70-110)
[2021-07-08] MEDS: insulin lispro 100 unit/1 mL SUBCUT ×3 (09:38→17:03)
[2021-07-08] MEDS: lisinopril 20 mg Tablet 40 MG PO (09:39)
[2021-07-08] MEDS: digoxin 125 mcg Tablet PO (09:39)
[2021-07-08] MEDS: amlodipine 10 mg Tablet PO (09:39)
[2021-07-08] MEDS: magnesium oxide 400 mg tablet PO ×2 (09:39→17:15)
[2021-07-08] MEDS: cyanocobalamin 1,000 mcg Tablet 500 MCG PO (09:40)
[2021-07-08] MEDS: metoprolol tartrate 50 mg Tablet 100 MG PO ×2 (09:41→20:37)
[2021-07-08] MEDS: pyridostigmine 60 mg Tablet 30 MG PO ×2 (09:51→17:02)
[2021-07-08] MEDS: potassium chloride ER 20 mEq Tablet 40 MEQ PO (10:00)
--- NOTE | 2021-07-08 10:25 | PC.SOCIAL ---
IMM Updated Updated pt on IMM. No questions voiced. Provided pt a copy. Initialed, dated, & timed copy in chart.
[2021-07-08 11:37] LABS: Glucose Point of Care 267 mg/dL (70-110)
--- NOTE | 2021-07-08 13:23 | PC.CHAP ---
Pastoral Care Encounter/Spiritual Assessment Type of Contact [] Declined reptile farmer visit [] Patient/Family/Request visit [] Outpatient visit [xx] Follow-up visit [] Physician referral [] Code/Alert [] Routine visit [] Staff referral [] Actively dying [] Patient sleeping [] Family support [] [] Out of room [] Palliative care [] [xx] Receiving care in room [] Pre-surgical visit [] Trauma [xx] Long length of stay [] ICU visit [] Other: Relational/Emotional Strength [] Patient feels connected with others/family/visitors/staff [] Distress [] Loneliness/isolation [] Abandonment Spirituality of Patient [] Person of Joelle [] Attends Pentecostal of their Joelle [] Believes in Prayer [] Reads Bible or Hindu materials [] There are Spiritual issues to be addressed Oiler Bander Interventions [] Prayer [] Active listening [] Non-anxious presence [] Spiritual/emotional support [] Crisis/trauma care [] Spiritual counseling [] Bereavement support [] Provided bereavement packet [] Provided Bible/devotional materials [] Provided toy/stuffed animal, coloring book to patient or family member [] Provided Communion [] Anointing/[place] [] Salvation [] Completed spiritual assessment [] Other: Impact on Illness or Injury [] Angry [] Fearful [] Anxious [] Often cries [] Exhaustion [] Unable to work [] Unable to attend catholic [] Unable to walk/stand [] Unable to read [] Unable to drive [] Unable to eat/drink [] Unable to sleep [] Unable to be with family [] Patient intubated [] Other: Summary Oiler Bander attempted follow up visit with patient but staff were busy with the patient and would be for some time. Follow up again later. Time spent with patient 1 minute
[2021-07-08] MEDS: enoxaparin 40 mg/0.4 mL Syringe SUBCUT (15:35)
--- NOTE | 2021-07-08 16:39 | PM.PN ---
Subjective Subjective: Interval history: Seen and examined this morning. No acute events overnight. Still awaiting [facility] placement. Vitals/I&O/Wt Last Vital Signs Temp 96.8 F L 07/08/21 11:54 Pulse 62 07/08/21 11:54 Resp 17 07/08/21 11:54 BP 106/44 07/08/21 11:54 Pulse Ox 99 07/08/21 11:54 07/08/21 07/08/21 07/08/21 06:59 14:59 22:59 Intake Total 360 / 360 Output Total 1025 / 1575 Balance -1025 / -315 360 / 360 Physical Exam Narrative: EXAM NARRATIVE: General: Alert oriented x3, seen laying in bed today. On baseline 2 L nasal cannula. Cardio: Regular rate rhythm, normal S1-S2 Respiratory: Good bilateral air entry, no wheezes no rhonchi appreciated Extremities: Nonpitting lower extremity trace edema present. Data : 07/07/21 03:08 07/08/21 04:25 A&P Assessment and plan (1) Atrial fibrillation with RVR: Status: Acute (2) Acute exacerbation of CHF (congestive heart failure): Status: Acute (3) Hypokalemia: Status: Acute (4) Fibromyalgia: Status: Acute (5) Weakness: Status: Acute (6) Multiple falls: Status: Acute (7) Orthostatic hypotension: Status: Acute (8) Chronic obstructive lung disease: Status: Acute (9) Seronegative rheumatoid arthritis of both hands: Status: Acute (10) Osteoarthritis of knees, bilateral: Status: Acute Additional A&P Information Recurrent falls related to orthostatic hypotension: Midodrine was discontinued. We will continue pyridostigmine 30 mg twice daily. Patient to go to [facility] for [facility]-term rehab. Patient is currently not on any anticoagulation Due to her frequent falls. Acute CHF exacerbation: Preserved ejection fraction heart rate exacerbation related to tachyarrhythmia, continue p.o. diuretic regimen for now Chronic hypoxic restaurant failure currently saturating well on 2 L nasal cannula, she does use 2 L at home It is evident from the notes that code stroke was called on this patient 07/05 and patient became mute during that time. Blood sugar was 213, systolic blood pressure was 200. She did receive multiple doses of labetalol. CT head and neck were unremarkable. She also was on a Cardene drip in the cardiac stepdown unit briefly to improve her blood pressure. Symptoms resolved in 30 minutes patient had patient was not diagnosed with stroke. Patient's did say that when patient's blood sugar is high she exhibits the scattered neurologic changes. Chronic A. fib: RVR has improved: Continue Cardizem, metoprolol, digoxin. Hypertensive urgency: Optimize antihypertensive regimen I am concerned about polypharmacy now she is requiring Cardizem, metoprolol, digoxin for rate control which can also reduce blood pressure on top of her other antihypertensive regimen Rheumatoid arthritis osteoarthritis: Takes Humira every 14 days, methotrexate, continue folic acid at the time of discharge Patient walked with physical therapy today and she was only able to do 3 feet. She would definitely benefit from a nursing home facility for rehab at this point. Patient is unsafe to be sent home looking at her current ability to do things. Awaiting [facility] placement Cardiac diet DVT prophylaxis Lovenox Hyperglycemia, added Lantus with sliding scale, hemoglobin A1c 7.2 , Attestations Medical Necessity Statement*: Awaiting ch[facility] placement. Coding Level of Care Code Acute Administration Specialist for Dougie Samson Diagnoses Atrial fibrillation with RVR I48.91 Acute exacerbation of CHF (congestive heart failure) I50.9 Hypokalemia E87.6 Fibromyalgia M79.7 Weakness R53.1 Multiple falls R29.6 Orthostatic hypotension I95.1 Chronic obstructive lung disease J44.9 Seronegative rheumatoid arthritis of both hands M06.041; M06.042 Osteoarthritis of knees, bilateral M17.0
[2021-07-08 16:55] LABS: Glucose Point of Care 154 mg/dL (70-110)
--- NOTE | 2021-07-08 17:45 | PC.NURSE ---
episodes of incontinence today..so difficult to adequately measure i/o.tried to encourage pt to sit for longer periods in chair...pt does not want to.awaiting insurance approval for rehab placement
[2021-07-08 20:19] LABS: Glucose Point of Care 230 mg/dL (70-110)
[2021-07-08] MEDS: insulin glargine 100 units/1 mL 15 UNIT SUBCUT (20:37)
[2021-07-09] VITALS (11 sets, daily range): BP systolic 111–136; BP diastolic 41–79; PULSE 59–75; RESP 15–24; TEMP 36.3–37.3; O2SAT 96–100
[2021-07-09] MEDS: dilTIAZem 30 mg Tablet PO ×4 (03:18→20:53)
[2021-07-09] MEDS: levothyroxine 150 mcg Tablet PO (05:26)
--- NOTE | 2021-07-09 05:41 | PC.NURSE ---
Patient assisted to bedside commode x2 throughout shift and brief changed x2 throughout shift. Unable to measure output due to incontinence.
[2021-07-09 05:45] LABS: Anion Gap 12.6 (5-19); Blood Urea Nitrogen 32 mg/dL (8-23); Calcium 9.6 mg/dL (8.5-10.5); Carbon Dioxide 35 mmol/L (22-29); Chloride 93 mmol/L (98-107); Glucose 263 mg/dL (65-115); Osmolality Calculated 300 mOsm/kg (285-295); Potassium 3.6 mmol/L (3.5-5.1); Sodium 137 mmol/L (136-145)
[2021-07-09 07:00] LABS: Glucose Point of Care 174 mg/dL (70-110)
[2021-07-09] MEDS: insulin lispro 100 unit/1 mL SUBCUT ×3 (08:08→17:40)
[2021-07-09] MEDS: metoprolol tartrate 50 mg Tablet 100 MG PO ×2 (08:09→20:53)
[2021-07-09] MEDS: magnesium oxide 400 mg tablet PO ×2 (08:09→17:41)
[2021-07-09] MEDS: amlodipine 10 mg Tablet PO (08:10)
[2021-07-09] MEDS: digoxin 125 mcg Tablet PO (08:10)
[2021-07-09] MEDS: lisinopril 20 mg Tablet 40 MG PO (08:10)
[2021-07-09] MEDS: cyanocobalamin 1,000 mcg Tablet 500 MCG PO (08:13)
[2021-07-09] MEDS: pyridostigmine 60 mg Tablet 30 MG PO ×2 (11:05→17:41)
[2021-07-09 12:25] LABS: Glucose Point of Care 290 mg/dL (70-110)
--- NOTE | 2021-07-09 14:51 | P.PN_ITS ---
Subjective Subjective: Interval history: Seen and examined this morning. No acute events overnight. Still awaiting residential placement.She states she slept really well She is feeling better. Vitals/I&O/Wt Last Vital Signs Temp 97.9 F 07/09/21 13:15 Pulse 61 07/09/21 13:15 Resp 22 H 07/09/21 13:15 BP 116/51 07/09/21 13:15 Pulse Ox 96 07/09/21 13:15 07/08/21 07/09/21 07/09/21 22:59 06:59 14:59 Intake Total 360 / 960 946 / 946 Output Total 350 / 350 100 / 100 Balance 10 / 610 846 / 846 Physical Exam Narrative: EXAM NARRATIVE: General: Alert oriented x3, seen laying in bed today. On baseline 2 L nasal cannula. Cardio: Regular rate rhythm, normal S1-S2 Respiratory: Good bilateral air entry, no wheezes no rhonchi appreciated Extremities: Nonpitting lower extremity trace edema present. Data : 07/07/21 03:08 07/09/21 03:37 A&P Assessment and plan (1) Atrial fibrillation with RVR: Status: Acute (2) Acute exacerbation of CHF (congestive heart failure): Status: Acute (3) Hypokalemia: Status: Acute (4) Fibromyalgia: Status: Acute (5) Weakness: Status: Acute (6) Multiple falls: Status: Acute (7) Orthostatic hypotension: Status: Acute (8) Chronic obstructive lung disease: Status: Acute (9) Seronegative rheumatoid arthritis of both hands: Status: Acute (10) Osteoarthritis of knees, bilateral: Status: Acute Additional A&P Information Recurrent falls related to orthostatic hypotension: Midodrine was discontinued. We will continue pyridostigmine 30 mg twice daily. Patient to go to residential for short-term rehab. Patient is currently not on any anticoagulation Due to her frequent falls. Acute CHF exacerbation: Preserved ejection fraction heart rate exacerbation related to tachyarrhythmia, continue p.o. diuretic regimen for now Chronic hypoxic restaurant failure currently saturating well on 2 L nasal cannula, she does use 2 L at home It is evident from the notes that code stroke was called on this patient 07/05 and patient became mute during that time. Blood sugar was 213, systolic blood pressure was 200. She did receive multiple doses of labetalol. CT head and neck were unremarkable. She also was on a Cardene drip in the cardiac stepdown unit briefly to improve her blood pressure. Symptoms resolved in 30 minutes patient had patient was not diagnosed with stroke. Patient's did say that when patient's blood sugar is high she exhibits the scattered neurologic changes. Chronic A. fib: RVR has improved: Continue Cardizem, metoprolol, digoxin. Hypertensive urgency: Optimize antihypertensive regimen I am concerned about polypharmacy now she is requiring Cardizem, metoprolol, digoxin for rate control which can also reduce blood pressure on top of her other antihypertensive regimen Rheumatoid arthritis osteoarthritis: Takes Humira every 14 days, methotrexate, continue folic acid at the time of discharge Patient walked with physical therapy today and she was only able to do 3 feet. She would definitely benefit from a [facility] facility for rehab at this point. Patient is unsafe to be sent home looking at her current ability to do things. Awaiting residential placement Cardiac diet DVT prophylaxis Lovenox Hyperglycemia, added Lantus with sliding scale, hemoglobin A1c 7.2 , Attestations Medical Necessity Statement*: awaiting nursing placement Time Spent in Patient Care: less than 15 minutes Coding Level of Care Code Acute Garbage Truck Dispatcher for g Fwd Diagnoses Atrial fibrillation with RVR I48.91 Acute exacerbation of CHF (congestive heart failure) I50.9 Hypokalemia E87.6 Fibromyalgia M79.7 Weakness R53.1 Multiple falls R29.6 Orthostatic hypotension I95.1 Chronic obstructive lung disease J44.9 Seronegative rheumatoid arthritis of both hands M06.041; M06.042 Osteoarthritis of knees, bilateral M17.0
--- NOTE | 2021-07-09 15:00 | PC.NURSE ---
Up in the chair Pt walk with walker [facility] [place] her chair. tolerated activity well.
[2021-07-09] MEDS: enoxaparin 40 mg/0.4 mL Syringe SUBCUT (15:13)
[2021-07-09 16:54] LABS: Glucose Point of Care 178 mg/dL (70-110)
[2021-07-09] MEDS: insulin glargine 100 units/1 mL 15 UNIT SUBCUT (20:53)
[2021-07-09 20:59] LABS: Glucose Point of Care 233 mg/dL (70-110)
[2021-07-10] VITALS (11 sets, daily range): BP systolic 117–160; BP diastolic 55–98; PULSE 65–74; RESP 13–69; TEMP 36.7–36.9; O2SAT 97–99
[2021-07-10] MEDS: dilTIAZem 30 mg Tablet PO ×4 (02:53→20:32)
[2021-07-10] MEDS: levothyroxine 150 mcg Tablet PO (02:54)
--- NOTE | 2021-07-10 04:29 | PC.NURSE ---
Patient assisted to bedside commode x5 throughout shift. Patient did not have any incontinence throughout shift.
[2021-07-10] MEDS: acetaminophen 325 mg Tablet 650 MG PO (04:45)
[2021-07-10 06:53] LABS: Anion Gap 12.9 (5-19); Blood Urea Nitrogen 29 mg/dL (8-23); Carbon Dioxide 32 mmol/L (22-29); Chloride 99 mmol/L (98-107); Glucose 181 mg/dL (65-115); Osmolality Calculated 300 mOsm/kg (285-295); Potassium 3.9 mmol/L (3.5-5.1); Sodium 140 mmol/L (136-145)
[2021-07-10 07:08] LABS: Glucose Point of Care 198 mg/dL (70-110)
--- NOTE | 2021-07-10 08:07 | PC.SOCIAL ---
IMM Update Pg. 2 of IMM updated and reviewed with patient, who verbalized understanding. Copy provided.
[2021-07-10] MEDS: metoprolol tartrate 50 mg Tablet 100 MG PO ×2 (08:16→20:32)
[2021-07-10] MEDS: lisinopril 20 mg Tablet 40 MG PO (08:16)
[2021-07-10] MEDS: insulin lispro 100 unit/1 mL SUBCUT ×3 (08:16→17:55)
[2021-07-10] MEDS: FUROsemide 20 mg Tablet PO (08:16)
[2021-07-10] MEDS: amlodipine 10 mg Tablet PO (08:16)
[2021-07-10] MEDS: digoxin 125 mcg Tablet PO (08:16)
[2021-07-10] MEDS: magnesium oxide 400 mg tablet PO ×2 (08:16→17:55)
[2021-07-10] MEDS: cyanocobalamin 1,000 mcg Tablet 500 MCG PO (08:19)
[2021-07-10] MEDS: pyridostigmine 60 mg Tablet 30 MG PO ×2 (08:32→17:55)
--- NOTE | 2021-07-10 11:01 | P.PN_ITS ---
Subjective Subjective: Interval history: Seen this morning. No acute events overnight. Patient slept well. Vitals/I&O/Wt Last Vital Signs Temp 98.1 F 07/10/21 08:32 Pulse 70 07/10/21 10:50 Resp 13 07/10/21 08:32 BP 140/98 07/10/21 08:32 Pulse Ox 97 07/10/21 10:50 07/09/21 07/10/21 07/10/21 22:59 06:59 14:59 Intake Total 237 / 1183 / 1983 591 / 591 Output Total 300 / 400 500 / 500 Balance -63 / 783 800 / 1583 91 / 91 Physical Exam Narrative: EXAM NARRATIVE: General: Alert oriented x3, seen laying in bed today. On baseline 2 L nasal cannula. Cardio: Regular rate rhythm, normal S1-S2 Respiratory: Good bilateral air entry, very mild crackles at bases b/l Extremities: Nonpitting lower extremity trace edema present. Data : 07/07/21 03:08 07/10/21 05:48 A&P Assessment and plan (1) Atrial fibrillation with RVR: Status: Acute (2) Acute exacerbation of CHF (congestive heart failure): Status: Acute (3) Hypokalemia: Status: Acute (4) Fibromyalgia: Status: Acute (5) Weakness: Status: Acute (6) Multiple falls: Status: Acute (7) Orthostatic hypotension: Status: Acute (8) Chronic obstructive lung disease: Status: Acute (9) Seronegative rheumatoid arthritis of both hands: Status: Acute (10) Osteoarthritis of knees, bilateral: Status: Acute Additional A&P Information Recurrent falls related to orthostatic hypotension: Midodrine was discontinued. We will continue pyridostigmine 30 mg twice daily. Patient to go to longterm for short-term rehab. Patient is currently not on any anticoagulation Due to her frequent falls. Acute CHF exacerbation: Preserved ejection fraction heart rate exacerbation related to tachyarrhythmia, I gave the patient a holiday from Lasix for 2 days. I will restart today at 40 Lasix oral daily. She does have very very mild crackles at bases bilaterally however has not hypoxic and not requiring more oxygen. Lower extremities without any edema. Doing well Chronic hypoxic restaurant failure currently saturating well on 2 L nasal cannula, she does use 2 L at home It is evident from the notes that code stroke was called on this patient 11/09 and patient became mute during that time. Blood sugar was 213, systolic blood pressure was 200. She did receive multiple doses of labetalol. CT head and neck were unremarkable. She also was on a Cardene drip in the cardiac stepdown unit briefly to improve her blood pressure. Symptoms resolved in 30 minutes patient had patient was not diagnosed with stroke. Patient's did say that when patient's blood sugar is high she exhibits the scattered neurologic changes. Chronic A. fib: RVR has improved: Continue Cardizem, metoprolol, digoxin. Hypertensive urgency: Optimize antihypertensive regimen I am concerned about polypharmacy now she is requiring Cardizem, metoprolol, digoxin for rate control which can also reduce blood pressure on top of her other antihypertensive regimen Rheumatoid arthritis osteoarthritis: Takes Humira every 14 days, methotrexate, continue folic acid at the time of discharge Patient walked with physical therapy and she was only able to do 3 feet. She wo uld definitely benefit from a [facility] facility for rehab at this point. Patient is unsafe to be sent home looking at her current ability to do things. Awaiting longterm placement Cardiac diet DVT prophylaxis Lovenox Hyperglycemia, added Lantus with sliding scale, hemoglobin A1c 7.2 , Attestations Medical Necessity Statement*: Awaiting rehab placement/insurance authorization. 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
[2021-07-10 12:05] LABS: Glucose Point of Care 328 mg/dL (70-110)
[2021-07-10] MEDS: enoxaparin 40 mg/0.4 mL Syringe SUBCUT (15:57)
[2021-07-10 17:40] LABS: Glucose Point of Care 169 mg/dL (70-110)
--- NOTE | 2021-07-10 20:00 | PC.NURSE ---
shift note pt is alert, orientedx4 and requires standby assist on activity to go to bsc and chair using walker. denies any pain or discomfort. she is eating good during meals.
[2021-07-10 20:07] LABS: Glucose Point of Care 260 mg/dL (70-110)
[2021-07-10] MEDS: insulin glargine 100 units/1 mL 15 UNIT SUBCUT (20:32)
[2021-07-11] VITALS (11 sets, daily range): BP systolic 133–170; BP diastolic 52–70; PULSE 62–79; RESP 19–22; TEMP 36.3–36.6; O2SAT 98–100
[2021-07-11] MEDS: dilTIAZem 30 mg Tablet PO ×2 (03:20→08:27)
[2021-07-11 05:58] LABS: Blood Urea Nitrogen 28 mg/dL (8-23); Calcium 9.4 mg/dL (8.5-10.5); Carbon Dioxide 33 mmol/L (22-29); Chloride 99 mmol/L (98-107); Glucose 189 mg/dL (65-115); Osmolality Calculated 301 mOsm/kg (285-295); Sodium 140 mmol/L (136-145)
[2021-07-11] MEDS: levothyroxine 150 mcg Tablet PO (06:32)
[2021-07-11 06:34] LABS: Glucose Point of Care 202 mg/dL (70-110)
[2021-07-11] MEDS: amlodipine 10 mg Tablet PO (08:27)
[2021-07-11] MEDS: pyridostigmine 60 mg Tablet 30 MG PO ×2 (08:27→17:38)
[2021-07-11] MEDS: cyanocobalamin 1,000 mcg Tablet 500 MCG PO (08:28)
[2021-07-11] MEDS: metoprolol tartrate 50 mg Tablet 100 MG PO ×2 (08:28→20:00)
[2021-07-11] MEDS: lisinopril 20 mg Tablet 40 MG PO (08:28)
[2021-07-11] MEDS: insulin lispro 100 unit/1 mL SUBCUT ×3 (08:29→17:37)
[2021-07-11] MEDS: FUROsemide 20 mg Tablet 40 MG PO (08:29)
[2021-07-11] MEDS: magnesium oxide 400 mg tablet PO ×2 (08:29→17:38)
[2021-07-11] MEDS: digoxin 125 mcg Tablet PO (08:44)
--- NOTE | 2021-07-11 09:21 | USCV_ITS ---
Myesha Parker Age: 70 Gender: F : 1950 Exam Date: 07/11/2021 13:27 Ordering Phys: Tim Robert MD Technologist: Cezar Max Exam Location: [facility] [place] Indication: chf BP: 148 / 67 HR: 72 Rhythm: Other Technical Quality: Technically difficult study MEASUREMENTS (Male / Female) Normal Values 2D ECHO LV Diastolic Diameter PLAX 3.2 cm 4.2 - 5.9 / 3.9 - 5.3 cm LV Systolic Diameter PLAX 1.9 cm IVS Diastolic Thickness 1.3 cm 0.6 - 1.0 / 0.6 - 0.9 cm IVS Systolic Thickness 1.8 cm LVPW Diastolic Thickness 2.3 cm 0.6 - 1.0 / 0.6 - 0.9 cm LVPW Systolic Thickness 2.2 cm LVOT Diameter 2.0 cm LV Ejection Fraction 2D Teich 70.8 % LV Ejection Fraction MOD 2C 74.8 % LV Ejection Fraction 2C AL 76.2 % LA Diameter 3.0 cm LA Width 3.4 cm LA Height 4.7 cm RA Width 3.4 cm RA Height 4.4 cm Aorta at Sinotubular Diameter 2.0 cm DOPPLER AV Peak Velocity 233.0 cm/s LVOT Peak Velocity 146.0 cm/s AV Area Cont Eq vti 1.7 cm squared AV Area Cont Eq pk 2.0 cm squared MV Area PHT 2.1 cm squared Mitral E to A Ratio 0.8 MV E' Velocity 61.5 cm/s Mitral E to MV E' Ratio 16.5 Mitral E to LV E' Lateral Ratio 16.1 Mitral E to LV E' Septal Ratio 17.3 TR Peak Velocity 180.8 cm/s TR Peak Gradient 13.1 mmHg RV Acceleration Time 0.1 s RV Ejection Time 0.4 s RV AcT/ET 0.3 FINDINGS Left Ventricle Normal left ventricular size and systolic function, EF 78 %. Moderate left ventricular hypertrophy. No regional wall motion abnormalities. Grade I/IV diastolic dysfunction (abnormal relaxation filling pattern), normal to mildly elevated filling pressures. Right Ventricle The right ventricle is normal in size and function. Right Atrium The right atrium is normal in size. Left Atrium The left atrium is normal in size. Mitral Valve Thickened mitral valve. Moderate mitral annular calcification. Aortic Valve Thickened aortic valve. Tricuspid Valve No gross abnormalities noted Pulmonic Valve No gross abnormalities noted Pericardium Normal pericardium without effusion. Aorta Normal ascending aorta dimension. CONCLUSIONS Normal left ventricular size and systolic function, EF 78 %. Moderate left ventricular hypertrophy. No regional wall motion abnormalities. Grade I/IV diastolic dysfunction (abnormal relaxation filling pattern), normal to mildly elevated filling pressures. Thickened mitral valve. Moderate mitral annular calcification. Features of aortic valve sclerosis There is no pericardial effusion. There are no intracardiac masses. Compared to the study from 03/16/2021, there may not be a significant change Dr Keisha Coronel MD FACC (Electronically Signed) Final Date: 11 July 2021 21:36 S
[2021-07-11 11:12] LABS: Glucose Point of Care 344 mg/dL (70-110)
--- NOTE | 2021-07-11 14:09 | P.PN_ITS ---
Subjective Subjective: Interval history: Patient was sitting on a bedside commode, at the bedside, patient is feeling slightly better however endorsing feeling lethargic and working with physical therapist, orthostasis has improved with pyridostigmine, PT note reviewed [id number] review was done today before noon as well Vitals/I&O/Wt Last Vital Signs Temp 97.8 F 07/11/21 08:00 Pulse 72 07/11/21 10:02 Resp 19 H 07/11/21 08:00 BP 148/67 07/11/21 08:00 Pulse Ox 99 07/11/21 10:02 07/10/21 07/11/21 07/11/21 22:59 06:59 14:59 Intake Total 200 / 1388 Output Total 750 / 1850 950 / 2800 Balance -750 / -662 -750 / -1412 Weight last 48 hrs Weight 102.421 kg Physical Exam Narrative: EXAM NARRATIVE: Patient was on bedside commode Clinically does look euvolemic Able to move upper and lower extremities NIH 0 S1, S2 variable Fatigue and lethargic Saturating well on 2 L nasal cannula which is her home requirement Abdomen distended with obesity Nonpitting lower extremity edema Data : 07/07/21 03:08 07/11/21 03:04 A&P Assessment and plan (1) Fibromyalgia: Status: Acute (2) Weakness: Status: Acute (3) Multiple falls: Status: Acute (4) Orthostatic hypotension: Status: Acute (5) Physical deconditioning: Status: Acute Additional A&P Information I have not changed any of her medications today, patient is awaiting nursing [facility] placement, peer to peer review done today before noon Patient to continue pyridostigmine for orthostatic hypotension A. 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
[2021-07-11] MEDS: enoxaparin 40 mg/0.4 mL Syringe SUBCUT (15:19)
[2021-07-11 17:27] LABS: Glucose Point of Care 224 mg/dL (70-110)
--- NOTE | 2021-07-11 19:02 | PC.NURSE ---
Patient has had three complete linen changes due to perspiration and leakage from a saturated disposable brief. Patient does request help to get up to the BSC, but is already incontinent / wet. Bath wipes used each time to provide holger care. Patient did also have 2 moderate formed brown BM's today. Patient is. continent of stool
[2021-07-11] MEDS: insulin glargine 100 units/1 mL 20 UNIT SUBCUT (20:26)
[2021-07-11 21:03] LABS: Glucose Point of Care 170 mg/dL (70-110)
--- NOTE | 2021-07-12 02:12 | PC.NURSE ---
Patient has been assisted to bedside commode multiple times. Patient has had multiple brief changes. Patient has had 2 episodes of loose bowel movements.
--- NOTE | 2021-07-12 02:55 | PC.NURSE ---
Dr. Marie notified of patient having multiple episodes of diarrhea. Ordered c-diff.
[2021-07-12] MEDS: acetaminophen 325 mg Tablet 650 MG PO (03:04)
[2021-07-12 04:00] VITALS: BP 152/62; PULSE 69; RESP 18; TEMP 36.3; O2SAT 99
[2021-07-12 05:29] VITALS: PULSE 70
[2021-07-12 06:33] LABS: Anion Gap 16.2 (5-19); Blood Urea Nitrogen 24 mg/dL (8-23); Calcium 9.2 mg/dL (8.5-10.5); Carbon Dioxide 29 mmol/L (22-29); Chloride 99 mmol/L (98-107); Glucose 149 mg/dL (65-115); Magnesium 2.3 mg/dL (1.7-2.3); Osmolality Calculated 297 mOsm/kg (285-295); Potassium 4.2 mmol/L (3.5-5.1); Sodium 140 mmol/L (136-145)
[2021-07-12 06:43] LABS: Glucose Point of Care 166 mg/dL (70-110)
[2021-07-12 08:00] VITALS: BP 128/84; PULSE 71; RESP 16; TEMP 36.7; O2SAT 99
[2021-07-12] MEDS: insulin lispro 100 unit/1 mL SUBCUT ×2 (08:02→12:39)
[2021-07-12 08:04] VITALS: PULSE 72
[2021-07-12] MEDS: cyanocobalamin 1,000 mcg Tablet 500 MCG PO (08:04)
[2021-07-12] MEDS: amlodipine 10 mg Tablet PO (08:04)
[2021-07-12] MEDS: digoxin 125 mcg Tablet PO (08:04)
[2021-07-12] MEDS: lisinopril 20 mg Tablet 40 MG PO (08:05)
[2021-07-12] MEDS: pyridostigmine 60 mg Tablet 30 MG PO (08:06)
[2021-07-12] MEDS: magnesium oxide 400 mg tablet PO (08:07)
[2021-07-12] MEDS: dilTIAZem ER (24HR) 120 mg Capsule PO (08:07)
[2021-07-12] MEDS: metoprolol tartrate 50 mg Tablet 100 MG PO (08:07)
[2021-07-12 10:21] VITALS: PULSE 68; RESP 18; O2SAT 96
--- NOTE | 2021-07-12 10:42 | PC.SOCIAL ---
IMM Update Pg.2 of IMM updated and reviewed with patient and at bedside. Copy provided.
--- NOTE | 2021-07-12 11:09 | P.DS_ITS ---
Discharge Providers Date of Admission: 07/01/21 11:59 Date of Discharge: July 12, 2021 Attending Provider at Admission: Joey Whitmore Attending Provider at Discharge: Tim Robert MD Primary Care Provider: Ami Perez DO Diagnoses at Discharge Discharge Diagnosis (1) Fibromyalgia: Status: Acute (2) Weakness: Status: Acute (3) Multiple falls: Status: Acute (4) Orthostatic hypotension: Status: Acute (5) Physical deconditioning: Status: Acute Reason for Visit Reason for Visit: LOW BLOOD PRESSURE Hospital Course Hospital Course History of Present Illness by Dr Whitmore Myesha Parker is a 70 year old female with past medical history of atrial fibrillation, diastolic congestive heart failure, coronary artery disease, hypertension, CKD, COPD, hypothyroidism, generalized deconditioning and debilitated state, recurrent orthostatic hypotension who is presenting to doctors hospital room with complaints of recurrent falls and chronic dizziness. Description of her symptoms indicates that her symptoms are orthostatic in nature. Last night again the patient developed severe lightheadedness while trying to stand up. Due to generalized weakness she collapsed. Likely she was held and supported by her and did not sustain any significant injuries. However she has multiple bruises on her body from the previous falls. In the emergency room her blood pressure initially was 127/91. It dropped to 80s standing. She received a bolus of normal saline and she reports feeling better now. She reports that her medications were recently adjusted due to orthostatic hypotension. Amlodipine was discontinued. The dose of metoprolol was decreased. Also the dose of the Synthroid was recently decreased. However she was having the symptoms before that. She denies any diarrhea or vomiting. However she reports not drinking enough fluids. She reports feeling thirsty. (Her Lasix was discontinued recently). She reports dysuria. The patient reports a popping sound in the neck and following neck pain after her fall today. She denies any shortness of breath, cough, palpitations. No headache. She reports pain in the chest from the previous bruise Hospital course Patient was admitted for management of weakness related to UTI, she was initially treated for gram-negative microorganism related to UTI for which she finished antibiotic regimen during her hospitalization. She remained afebrile no worsening leukocytosis no signs of bacteremia. During this hospitalization code stroke was called when patient was noted to be completely mute. She was evaluated by myself and Dr. Medina, her symptoms resolved by the time we did CTA head and neck. CT head and CTA head and neck were unremarkable. As per the at home she exhibits similar symptoms whenever her blood sugar is above 200. During this code stroke she was hypotensive and blood sugar was above 200. She was transferred to cardiac stepdown unit, Cardene drip was initiated for hypertensive emergency, Cardene drip was titrated off in 24 hours, and then she went into A. fib with RVR which was controlled with use of digoxin increasing dose of metoprolol, Cardizem was added as well. Patient was showing signs of orthostasis. She was not cooperating very well with the physical therapist. In the past she has been treated multiple times for recurrent falls related to orthostatic hypotension. I have discontinued midodrine. Started on pyridostigmine which resolved her orthostatic hy potension. I also did peer to peer review to get her accepted for the correction for subacute rehab. Patient is very deconditioned and not motivated at all to do any kind of physical activity. This will remain a challenge/ considered high risk for readmissions. During this prolonged hospitalization Lasix was discontinued secondary to contraction alkalosis however it was started at lower dose 20 mg on every other day regimen. She is not a candidate of anticoagulation because of history of recurrent falls. Today on 07/12 she will be discharged to SNF. Patient also experienced diarrhea during this hospitalization, cdiff panel was negative, she was drinking milk and when I asked her if she is lactose intolerant she endorsed it. In summary during this hospitalization she did develop atypical neurological symptoms, she was managed for hypertensive emergency, A. fib RVR, hyperglycemia, UTI, orthostatic hypotension. Physical Exam Narrative: EXAM NARRATIVE: Patient was laying supine, talkative and in pleasant mood Clinically does look euvolemic Able to move upper and lower extremities NIH 0 S1, S2 variable Fatigue and lethargic Saturating well on 2 L nasal cannula which is her home requirement Abdomen distended with obesity Nonpitting lower extremity edema Discharge Data Data Completed and Pending: Completed Studies During Hospitalization Category Date Time Status CT angio chest PE protcl 65519 Rout ine Cat Scan 07/02/21 09:[address] cervical spin wo con* [id number] Rout ine Cat Scan 06/30/21 06:[address] head wo con* 7 0450 Routine Cat Scan 07/02/21 08:37 Completed CTA head neck [CT angio headneck* 7 [id number]/89866] Stat Cat Scan 07/02/21 08:42 Completed XR chest 1V teetee ble [id number] Urgent Exams 06/30/21 04:42 [place] [id number] Routin e Ultrasound 07/02/21 07:32 Completed CV. echo complete * [id number] Routine Ultrasound 07/11/21 09:21 Completed Pending at discharge Category Date Time Status CDIFF [Clostridio ides Difficile PCR ] Routine Lab 07/12/21 02:44 Received Labs from last 24 hours 07/12/21 07/12/21 07/11/21 06:25 04:21 20:02 Sodium 140 Potassium 4.2 Chloride 99 Carbon Dioxide 29 Anion Gap 16.2 BUN 24 H Creatinine 0.9 GFR Calculation Not Reportable Glucose 149 H POC Glucose 166 H 170 H Calculated Osmolal ity 297 H Calcium 9.2 Magnesium 2.3 07/11/21 07/11/21 17:11 11:08 Sodium Potassium Chloride Carbon Dioxide Anion Gap BUN Creatinine GFR Calculation Glucose POC Glucose 224 H 344 H Calculated Osmolal ity Calcium Magnesium Vitals: Last Vital Signs Temp 98.1 F 07/12/21 08:00 Pulse 68 07/12/21 10:21 Resp 18 07/12/21 10:21 BP 128/84 07/12/21 08:00 Pulse Ox 96 07/12/21 10:21 Discharge Plan Discharge Patient Disposition: Xfer SNF Condition: Stable Prescriptions: New Lantus U-100 Insulin 100 unit/mL Solution 20 unit SUBCUT BEDTIME 30 Days Qty: 10 RF: 1 amlodipine 10 mg Tablet 10 mg PO DAILY 30 Days RF: 0 diltiazem HCl 120 mg Capsule,Extended Release 24hr 120 mg PO DAILY 30 Days Qty: 30 RF: 3 lisinopril 20 mg Tablet 40 mg PO DAILY Qty: 30 RF: 0 pyridostigmine bromide 60 mg Tablet 30 mg PO BID Qty: 60 RF: 4 metoprolol tartrate 50 mg Tablet 100 mg PO BID@0900,2100 Qty: 60 RF: 3 Magnesium Oxide [Magox] 400 mg PO BID Qty: 20 RF: 0 Continued potassium chloride 20 mEq tablet extended release 20 meq PO BID@,17 RF: 0 Hold Instructions: Resume on 06/18/21. folic acid 1 mg tablet 1 mg PO DAILY@08 Qty: 90 RF: 1 prednisone 2.5 mg tablet 2.5 mg PO DAILY Qty: 90 RF: 1 sulfasalazine 500 mg tablet 500 mg PO BID@08,17 Qty: 60 RF: 3 nitroglycerin [Nitrostat] 0.4 mg tablet, sublingual 0.4 mg SUBLINGUAL Q5M PRN (Reason: Chest Pain) Qty: 30 RF: 3 duloxetine [Cymbalta] 30 mg capsule,delayed release(DR/EC) 30 mg PO DAILY@08 Qty: 30 RF: 2 duloxetine 60 mg capsule,delayed release(DR/EC) 60 mg PO DAILY Qty: 30 RF: 2 hydrocodone-acetaminophen 7.5-325 mg tablet 1 tab PO TID PRN (Reason: pain) 30 Days Qty: 90 RF: 0 tizanidine 4 mg tablet 4 mg PO TID PRN (Reason: muscle spasticity) 30 Days Qty: 90 RF: 1 levothyroxine [Euthyrox] 150 mcg tablet 150 mcg PO DAILY RF: 0 calcium carbonate [Calcium 600] 600 mg calcium (1,500 mg) tablet 600 mg PO DAILY RF: 0 methylsulfonylmethane [MSM] 1,000 mg tablet 1,000 mg PO BID RF: 0 atorvastatin [Lipitor] 40 mg Tablet 40 mg PO BEDTIME RF: 0 acetaminophen [Arthritis Pain Reliever] 650 mg Tablet Extended Release 650 mg PO DAILY PRN (Reason: Pain) RF: 0 cholecalciferol (vitamin D3) [Vitamin D3] 25 mcg (1,000 unit) Tablet 2,000 unit PO DAILY@08 RF: 0 albuterol sulfate 2.5 mg /3 mL (0.083 %) Solution For Nebulization 2.5 mg inhalation TID PRN (Reason: Shortness Of Breath) RF: 0 aspirin 325 mg Tablet 325 mg PO BEDTIME@1999 RF: 0 Hold Instructions: Resume on 10/18/20. Novolin 70/30 U-100 Insulin 100 unit/mL (70-30) suspension See Rx Instructions .ROUTE .COMPLEX RF: 0 hydrocortisone 2.5 % cream See Rx Instructions .ROUTE .COMPLEX RF: 0 albuterol sulfate 90 mcg/actuation Hfa Aerosol Inhaler 2 puff INHALATION Q6H PRN (Reason: Shortness Of Breath) RF: 0 docusate sodium [Stool Softener] 250 mg Capsule 250 mg PO BID PRN (Reason: Constipation) RF: 0 cyanocobalamin (vitamin B-12) [Vitamin B-12] 500 mcg Tablet 500 mcg PO DAILY RF: 0 chlorpheniramine maleate [ChlorTabs] 4 mg Tablet See Rx Instructions .ROUTE .COMPLEX RF: 0 prednisolone acetate 1 % Drops,Suspension 1 drp ophthalmic (eye) PRN RF: 0 diphenhydramine HCl [Benadryl] 25 mg Capsule See Rx Instructions .ROUTE .COMPLEX RF: 0 methotrexate sodium 2.5 mg tablet 7.5 mg PO Q7D RF: 0 metoprolol tartrate 100 mg tablet 50 mg PO Q12H 30 Days Qty: 30 RF: 2 insulin lispro [Admelog U-100 Insulin lispro] 100 unit/mL Solution See Rx Instructions .ROUTE .COMPLEX RF: 0 pantoprazole [Protonix] 40 mg tablet,delayed release (DR/EC) 40 mg PO BID@08,17 RF: 0 digoxin 125 mcg (0.125 mg) tablet See Rx Instructions .ROUTE .COMPLEX RF: 0 ferrous gluconate 324 mg (37.5 mg iron) tablet See Rx Instructions .ROUTE .COMPLEX RF: 0 magnesium L-lactate 84 mg tablet extended release 84 mg PO BID RF: 0 Changed furosemide 40 mg tablet 20 mg PO Q48H Qty: 90 RF: 3 Held Humira Pen 40 mg/0.8 mL pen injector kit 40 mg SUBCUT Q14D Qty: 2 RF: 3 Hold Instructions: Resume on 08/02/21. Discontinued tramadol 50 mg tablet 100 mg PO TID PRN (Reason: pain) Qty: 180 RF: 1 pyridoxine (vitamin B6) [Vitamin B-6] 100 mg Tablet 100 mg PO DAILY@08 RF: 0 riboflavin (vitamin B2) [Vitamin B-2] 50 mg Tablet 50 mg PO DAILY Qty: 0 RF: 0 midodrine 5 mg Tablet 5 mg PO TID 30 Days Qty: 90 RF: 3 Discharge Orders: Discharge Order (Routine); Ordered 07/12/21 Ordered By: Tim Robert Referrals: Ami Perez DO [Primary Care Provider] - Discharge Diet: Cardiac Discharge Activity: Increase activity as tolerated Patient Instructions: Metoprolol (By mouth), Diltiazem (By mouth), Lisinopril (By mouth), Pyridostigmine [place] (By mouth), Amlodipine (By mouth), Magnesium (By mouth), Insulin Glargine (By injection), Heart Failure (DC), A-fib (Atrial Fibrillation) (DC), CHF Stoplight, Opioid Safety Discharge Attestations Time Spent in Discharge Care*: less than 30 min Status at Discharge: Cognitive status at discharge: cognitively intact , Behavioral status at discharge: cooperative , Quality Metrics Clinical Quality Measures During this hospital stay, did patient experience: None Coding Level of Care Code Acute Chg FW DC note Diagnoses Fibromyalgia M79.7 Weakness R53.1 Multiple falls R29.6 Orthostatic hypotension I95.1 Physical deconditioning R53.81
[2021-07-12 12:21] LABS: Glucose Point of Care 258 mg/dL (70-110)
== END 2021-07-12 12:30 | disposition skilled nursing facility (03) | DRG 689 ==
LOC: ER 05:39 → MEDSURG 06:06 → CSU 07-02 16:20
PROVIDERS: Internal Medicine; Admitting Provider Internal Medicine; Emergency Provider Emergency Medicine; PCP Internal Medicine; Visit Provider Internal Medicine
DX: N39.0 Urinary tract infection, site not specified (principal); I50.33 Acute on chronic diastolic (congestive) heart failure; I13.0 Hypertensive heart and chronic kidney disease with heart failure and stage 1 through stage 4 chronic kidney disease, or unspecified chronic kidney disease; I48.20 Chronic atrial fibrillation, unspecified; J96.11 Chronic respiratory failure with hypoxia; Z86.16 Personal history of COVID-19; F41.8 Other specified anxiety disorders; R29.6 Repeated falls; N18.9 Chronic kidney disease, unspecified; E11.22 Type 2 diabetes mellitus with diabetic chronic kidney disease; E11.65 Type 2 diabetes mellitus with hyperglycemia; G89.29 Other chronic pain; M54.50 Low back pain, unspecified; M17.0 Bilateral primary osteoarthritis of knee; J44.9 Chronic obstructive pulmonary disease, unspecified; Z99.81 Dependence on supplemental oxygen; I25.10 Atherosclerotic heart disease of native coronary artery without angina pectoris; M79.7 Fibromyalgia; E78.5 Hyperlipidemia, unspecified; E03.9 Hypothyroidism, unspecified; Z87.440 Personal history of urinary (tract) infections; M06.042 Rheumatoid arthritis without rheumatoid factor, left hand; M06.041 Rheumatoid arthritis without rheumatoid factor, right hand; Z87.891 Personal history of nicotine dependence; Z79.4 Long term (current) use of insulin; Z79.51 Long term (current) use of inhaled steroids; Z79.891 Long term (current) use of opiate analgesic; I16.0 Hypertensive urgency; G47.30 Sleep apnea, unspecified; E83.42 Hypomagnesemia; E87.6 Hypokalemia; B96.20 Unspecified Escherichia coli [E. coli] as the cause of diseases classified elsewhere; D63.1 Anemia in chronic kidney disease
CPT/HCPCS: 36415; 36416; 70450; 70496; 70498; 71045; 71275; 72125; 80048; 80053; 80162; 81001; 82533; 82607; 82962; 83036; 83605; 83735; 83880; 84146; 84443; 84484; 85025; 85378; 87077; 87086; 87186; 87493; 93005; 93306; 93970; 96365; 96366; 96367; 96372; 96375; 97110; 97116; 97161; 97166; 97530; 97535; 99214; 99285; G0378; J0360; J0696; J1160; J1650; J1815 ×2; J2405; J3475; J3490; J7512; Q9967

== ENCOUNTER 2021-08-02 01:25 | Observation (INO) | payer MEDICARE, SELFPAY ==
[2021-08-02] VITALS (16 sets, daily range): BP systolic 98–160; BP diastolic 47–83; PULSE 53–76; RESP 16–19; TEMP 36.5–36.9; O2SAT 92–100; BMI 36.6
--- NOTE | 2021-08-02 01:29 | ECG_ITS ---
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: : [id number] Requested By: Karma Garner Order Number: [id number] Wilbur MD: FIONA EMMANUEL Measurements Intervals [place] Rate: 55 P: 8 MA: 273 QRS: -55 QRSD: 147 T: 62 QT: 446 QTc: 429 Interpretive Statements SINUS BRADYCARDIA WITH FIRST DEGREE AV BLOCK RIGHT BUNDLE BRANCH BLOCK [120+ ms QRS DURATION, UPRIGHT V1, 40+ ms S IN I/aVL/V4/V5/V6] LEFT ANTERIOR FASCICULAR BLOCK [QRS AXIS <= -45, QR IN I, RS IN II] VOLTAGE CRITERIA FOR LVH [MEETS CRITERIA IN ONE OF: R(aVL), S(V1), R(V5), R(V5/V6)+S(V1)] Compared to ECG 07/06/2021 23:11:05 First degree AV block now present Sinus rhythm no longer present ST (T wave) deviation no longer present Myocardial infarct finding no longer present Electronically Signed On 08-02-2021 20:01:39 HEARING AID CONSULTANT by FIONA EMMANUEL [id number]
--- NOTE | 2021-08-02 01:29 | W.ED.FALL ---
HPI - Fall General: Chief Complaint: Fall Stated Complaint: FALL Time Seen by Provider: 08/02/21 01:26 Source: patient and EMS Mode of arrival: EMS Limitations: no limitations History of Present Illness: HPI Narrative: 70-year-old female is well-known to ER with a history of multiple falls she states she is walking with her walker tonight and slipped and fell she states she hit her head believes that she may have passed out, this happened just prior to arrival she has a slight headache slight neck pain denies any other injuries with the fall denies any chest pain denies any worsening improving factors. Associated symptoms-after fall: Denies abdominal pain, chest pain, headache(s) or neck pain Review of Systems Const: Denies: fever(s), chills, body aches or change in appetite Eyes: Denies: blurry vision or eye discomfort ENMT: Denies: throat pain or dental pain Card: Reports: syncope; Denies: chest pain Resp: Denies: dyspnea GI: Denies: abdominal pain, nausea, vomiting or diarrhea : Denies: dysuria Musc: Denies: neck pain or back pain Skin/Breast: Denies: rash Neuro: Denies: headache(s) Psych: Denies: depression [place]/Lymph: Denies: easy bruising All/Imm: Denies: urticaria PFSH ED PFSH: Medical History Anxiety and depression CHF exacerbation Chronic knee pain Chronic low back pain COPD (chronic obstructive pulmonary disease) Oxygen dependent, 2 L at baseline Coronary artery disease COVID-14 August 2020 Fibromyalgia High risk medication use Hyperlipidemia Hypertension Hypothyroidism Immunization counseling Inflammatory arthritis Intermittent atrial fibrillation Because the patient history of frequent fall she was thought to be high risk for bleeding complications. So she is taking only the aspirin at this time. SHE HAS EASY BRUISING WELL Left renal mass Liver cirrhosis Low back pain of over 3 months duration Lung nodule Narrow complex tachycardia Osteoarthritis of knees, bilateral Poorly controlled diabetes mellitus Psychiatric care Recurrent UTI Seronegative rheumatoid arthritis of both hands Unstable angina Urgency incontinence UTI (urinary tract infection) Surgical History History of cardiac cath History of cholecystectomy History of hysterectomy History of knee replacement History of thyroid surgery Family History Other CAD (coronary artery disease) Cancer Denies family history of Anesthesia complication Bleeding disorder Social History Smoking and tobacco status: former smoker Quit status (tobacco): has quit using tobacco Year quit tobacco: 2005 Second hand smoke exposure: No Alcohol intake: never Adopted: No Caregiver/support person: No Lives independently: No Household members: spouse Marital status: Current occupational status: retired History of recent travel: No Current gender identity: Female Female Reproductive History: Date of last menstrual period: 11/18/20 Physical Exam Const: COMMON NORMALS: no acute distress, patient oriented x3 and healthy appearing HENMT: COMMON NORMALS: normocephalic and atraumatic HEAD & SCALP: normocephalic and atraumatic Eye: COMMON NORMALS: Equal, round and reactive pupils present and EOMs intact bilaterally PUPIL: Yes Equal, round and reactive pupils present Neck/C-Spine: COMMON NORMALS: full ROM and supple Chest: COMMONS NORMALS: normal inspection of the chest and normal palpation of entire chest wall Resp: COMMON NORMALS: normal respiratory effort, No retractions, No use of accessory muscles and clear to auscultation bilaterally AUSCULTATION: clear to auscultation bilaterally Cardio: COMMON NORMALS: regular rate, regular rhythm and No murmurs present (Cardio) RATE: regular rate RHYTHM: regular rhythm GI: COMMON NORMALS: Normal to inspection, nondistended, normoactive bowel sounds present, Soft to palpation, non-tender and no masses PALPATION: Yes Soft to palpation OTHER: Stool was brown no gross blood Hemoccult is positive Extremity: COMMON NORMALS: normal to inspection and full ROM Neuro: COMMON NORMALS: patient oriented x3, moves all extremities and no focal motor deficits Psych: COMMON NORMALS: mental status grossly normal, Normal thought process present and cooperative THOUGHT PROCESS: Normal thought process present Skin: COMMON NORMALS: no rashes or lesions noted and no wounds GENERAL SKIN EXAM: no rashes or lesions noted Course Vital Signs: Vital signs: Vital Signs Temperature 98.5 F 08/02/21 01:27 Pulse Rate 55 L 08/02/21 01:56 Respiratory Rate 16 08/02/21 01:56 Blood Pressure 142/78 08/02/21 01:56 Pulse Oximetry 98 08/02/21 01:56 MDM - Fall MDM Narrative: Medical decision making narrative: Patient presents here with syncopal event and fall with generalized weakness unsure if she truly had a syncopal event she states she may. She is anemic as she has been anemic in the past Hemoccult here was positive but no gross blood CT scans are normal spoke to hospitalist will admit for observation and transfuse. Lab Data: Labs: Lab Results 08/02/21 08/02/21 08/02/21 01:45 01:45 02:20 WBC 4.0 10^3/uL 10^3/ uL (4.0-10.0) RBC 2.08 10^6/uL L 10 ^6/uL (4.1-5.3) Hgb 6.8 g/dL L g/dL (11.5-15.3) Hct 21.6 % L % (37.0-47.0) MCV 103.8 fl H fl (81-99) MCH 32.7 pg pg (28.0-34.0) MCHC 31.5 g/dL g/dL (30.0-36.0) RDW 14.5 % % (12.1-15.1) Plt Count 146 10^3/cmm 10^3 /cmm (130-400) MPV 9.9 fL fL (7.4-10.4) Neut % (Auto) 65.6 % % Lymph % (Auto) 19.5 % % [place] % (Auto) 12.0 % % Eos % (Auto) 1.7 % % Baso % (Auto) 0.5 % % Neut # (Auto) 2.63 10^3/uL 10^3 /uL (1.8-7.7) Lymph # (Auto) 0.8 10^3/uL 10^3/ uL (0.8-4.8) [place] # (Auto) 0.5 10^3/uL 10^3/ uL (0.2-0.9) Eos # (Auto) 0.1 10^3/uL 10^3/ uL (0.0-0.8) Baso # (Auto) 0.0 10^3/uL 10^3/ uL (0.0-0.1) Nucleated RBC % (a uto) 0 % % Nucleated RBCs # 0.0 /100WBC /100W BC Sodium 139 mmol/L mmol/L (136-145) Potassium 4.9 mmol/L mmol/L (3.5-5.1) Chloride 103 mmol/L mmol/L (98-107) Carbon Dioxide 23 mmol/L mmol/L (22-29) Anion Gap 17.9 (5-19) BUN 29 mg/dL H mg/dL (8-23) Creatinine 1.2 mg/dL H mg/dL (0.5-0.9) GFR Calculation Not Reportable Glucose 291 mg/dL H mg/dL (65-115) Calculated Osmolal ity 305 mOsm/kg H mOs m/kg (285-295) Calcium 8.7 mg/dL mg/dL (8.5-10.5) Blood Type O Positive Rho(D) Type Positive Crossmatch 08/02/21 08/02/21 02:20 02:20 WBC 4.1 10^3/uL 10^3/ uL (4.0-10.0) RBC 2.11 10^6/uL L 10 ^6/uL (4.1-5.3) Hgb 6.9 g/dL L g/dL (11.5-15.3) Hct 21.9 % L % (37.0-47.0) MCV 103.8 fl H fl (81-99) MCH 32.7 pg pg (28.0-34.0) MCHC 31.5 g/dL g/dL (30.0-36.0) RDW 14.6 % % (12.1-15.1) Plt Count 141 10^3/cmm 10^3 /cmm (130-400) MPV 9.6 fL fL (7.4-10.4) Neut % (Auto) 62.1 % % Lymph % (Auto) 21.3 % % [place] % (Auto) 13.8 % % Eos % (Auto) 1.4 % % Baso % (Auto) 0.7 % % Neut # (Auto) 2.57 10^3/uL 10^3 /uL (1.8-7.7) Lymph # (Auto) 0.9 10^3/uL 10^3/ uL (0.8-4.8) [place] # (Auto) 0.6 10^3/uL 10^3/ uL (0.2-0.9) Eos # (Auto) 0.1 10^3/uL 10^3/ uL (0.0-0.8) Baso # (Auto) 0.0 10^3/uL 10^3/ uL (0.0-0.1) Nucleated RBC % (a uto) 0 % % Nucleated RBCs # 0.0 /100WBC /100W BC Sodium Potassium Chloride Carbon Dioxide Anion Gap BUN Creatinine GFR Calculation Glucose Calculated Osmolal ity Calcium Blood Type Rho(D) Type Crossmatch See Detail Imaging Data^: CT Head: Attestation: I personally reviewed and interpreted this imaging study as follows: Radiologist's impression: [facility] [address] [address] [address] Scan Report Signed Patient: Myesha Parker Unit #: [id number] : 1950 Age/Sex: 70 / F ADM Date: 08/02/21 Loc: ER Room/Bed: Attending Dr: Ordering Provider/Ordering MD: Karma Garner MD Date of Service: 08/02/21 Procedure(s): CT head wo con* [id number] Accession Number(s): [id number] Report Number: [id number] PROCEDURE INFORMATION: Exam: CT Head Without Contrast Exam date and time: 08/02/2021 1:28 AM Age: 70 years old Clinical indication: Injury or trauma; Fall; Blunt trauma (contusions or hematomas) TECHNIQUE: Imaging protocol: Computed tomography of the head without contrast. Radiation optimization: All CT scans at this facility use at least one of these dose optimization techniques: automated exposure control; mA and/or kV adjustment per patient size (includes targeted exams where dose is matched to clinical indication); or iterative reconstruction. COMPARISON: CT head wo con* [id number] 07/02/2021 9:04 AM RADIATION DOSE METRICS: Total DLP (mGy-cm): 812.98 FINDINGS: Brain: Mild to moderate cerebral atrophy and ischemic leukoencephalopathy. Cerebral ventricles: No ventriculomegaly. Paranasal sinuses: Visualized sinuses are unremarkable. No fluid levels. Mastoid air cells: Visualized mastoid air cells are well aerated. Vasculature: Severe calcified intracranial atherosclerotic vessel disease. Bones/joints: Unremarkable. No acute fracture. Soft tissues: Unremarkable. CT/CT head wo con* [id number] IMPRESSION: No acute intracranial findings. Dictated By: Miguelito Hampton MD Signed By: Miguelito Hampton MD Signed Date/Time: 08/02/21204 DD/ Other CT: Radiologist's impression: [address] [address] [address] Scan Report Signed Patient: Myesha Parker Unit #: [id number] : 1950 Age/Sex: 70 / F ADM Date: 08/02/21 Loc: ER Room/Bed: Attending Dr: Ordering Provider/Ordering MD: Karma Garner MD Date of Service: 08/02/21 Procedure(s): CT cervical spin wo con* [id number] Accession Number(s): [id number] Report Number: [id number] PROCEDURE INFORMATION: Exam: CT Cervical Spine Without Contrast Exam date and time: 08/02/2021 1:28 AM Age: 70 years old Clinical indication: Injury or trauma; Fall; Blunt trauma TECHNIQUE: Imaging protocol: Computed tomography images of the cervical spine without contrast. Radiation optimization: All CT scans at this facility use at least one of these dose optimization techniques: automated exposure control; mA and/or kV adjustment per patient size (includes targeted exams where dose is matched to clinical indication); or iterative reconstruction. COMPARISON: CT cervical spin wo con* [id number] 06/30/2021 6:32 AM RADIATION DOSE METRICS: Total DLP (mGy-cm): 802.46 FINDINGS: Bones/joints: Moderate to severe multilevel spine degenerative changes including degenerative disc disease, spondylosis and facet degenerative changes. Dextroscoliosis. Discs/Spinal canal/Neural foramina: No significant disc protrusion. No severe spinal canal stenosis. No significant neural foraminal narrowing. Lungs: Lung apices are normal. Soft tissues: Unremarkable. CT/CT cervical spin wo con* [id number] IMPRESSION: No acute C-spine findings. Dictated By: Miguelito Hampton MD Signed By: Miguelito Hampton MD Signed Date/Time: 12/07/21 0206 EKG Data^: EKG 1: Attestation: I personally reviewed and interpreted this EKG as follows: EKG interpretation date: 08/02/21 EKG interpretation time: 01:38 Interpretation: sinus rosi hr [address] or t wave abnormalities qrs 147 qtc 435 Discharge Plan Discharge Patient Disposition: Placed in Observation Clinical Impression: Weakness, Multiple falls, Anemia, Syncope Coding Level of Care Code ED Certified Registered Nurse Practitioner for Chg Fwd Exam Comprehensive
[2021-08-02 02:08] LABS: Basophils % 0.5 %; Eosinophils # 0.1 10^3/uL (0.0-0.8); Eosinophils % 1.7 %; Hematocrit 21.6 % (37.0-47.0); Hemoglobin 6.8 g/dL (11.5-15.3); Lymphocytes # 0.8 10^3/uL (0.8-4.8); Lymphocytes % 19.5 %; Mean Corpuscular HGB Conc 31.5 g/dL (30.0-36.0); Mean Corpuscular Hemoglobin 32.7 pg (28.0-34.0); Mean Corpuscular Volume 103.8 fl (81-99); Mean Platelet Volume 9.9 fL (7.4-10.4); Monocytes # 0.5 10^3/uL (0.2-0.9); Neutrophils # 2.63 10^3/uL (1.8-7.7); Neutrophils % 65.6 %; Nucleated Red Blood Cells % 0 %; Platelet Count 146 10^3/cmm (130-400); Red Blood Count 2.08 10^6/uL (4.1-5.3); Red Cell Distribution Width 14.5 % (12.1-15.1)
[2021-08-02 02:28] LABS: Anion Gap 17.9 (5-19); Blood Urea Nitrogen 29 mg/dL (8-23); Calcium 8.7 mg/dL (8.5-10.5); Carbon Dioxide 23 mmol/L (22-29); Chloride 103 mmol/L (98-107); Glucose 291 mg/dL (65-115); Osmolality Calculated 305 mOsm/kg (285-295); Potassium 4.9 mmol/L (3.5-5.1); Sodium 139 mmol/L (136-145)
[2021-08-02 02:29] LABS: Basophils % 0.7 %; Eosinophils # 0.1 10^3/uL (0.0-0.8); Eosinophils % 1.4 %; Hematocrit 21.9 % (37.0-47.0); Hemoglobin 6.9 g/dL (11.5-15.3); Lymphocytes # 0.9 10^3/uL (0.8-4.8); Lymphocytes % 21.3 %; Mean Corpuscular HGB Conc 31.5 g/dL (30.0-36.0); Mean Corpuscular Hemoglobin 32.7 pg (28.0-34.0); Mean Corpuscular Volume 103.8 fl (81-99); Mean Platelet Volume 9.6 fL (7.4-10.4); Monocytes # 0.6 10^3/uL (0.2-0.9); Monocytes % 13.8 %; Neutrophils # 2.57 10^3/uL (1.8-7.7); Neutrophils % 62.1 %; Nucleated Red Blood Cells % 0 %; Platelet Count 141 10^3/cmm (130-400); Red Blood Count 2.11 10^6/uL (4.1-5.3); Red Cell Distribution Width 14.6 % (12.1-15.1); White Blood Count 4.1 10^3/uL (4.0-10.0)
[2021-08-02 10:05] LABS: Hematocrit 26.2 % (37.0-47.0); Hemoglobin 8.2 g/dL (11.5-15.3)
[2021-08-02 10:14] LABS: INR 0.96 (0.8-1.2)
--- NOTE | 2021-08-02 11:11 | PC.NURSE ---
This RN was at bedside with a critical pt. Pt taken to floor by unknown staff, unknown if report given. Please defer to warp coiler, Erica.
[2021-08-02] MEDS: pantoprazole 40 mg SDV IVP ×2 (11:48→22:47)
--- NOTE | 2021-08-02 11:59 | PM.HP ---
Providers/Chief Complaint Admitting Physician: Sangita Lockhart MD Primary Care Provider: Aim Perez DO Chief Complaint: FALL History of Present Illness Myesha Parker is a 70 year old female who presented to the emergency department after a fall. She is not quite for sure why she fell. She has history of multiple falls in the past. She does report some darker stools, starting prior to her leaving the nursing facility on Sunday. She states she has some abdominal pain on occasion. She reports no history of hematemesis. She cannot tell me that she has had any history of GI bleeding. Most recent hospital stay was June 30 through July 12, hospitalized for multiple falls and orthostatic hypotension and eventually transitioning to nursing facility that she left on Sunday. She reports she does great when people supervise her but falls a lot when nobody is around. She states her went to work, and she fell while he was away. During her prolonged hospital stay here she was treated for orthostatic hypotension with multiple medicine changes. Review of Systems General: Reports: 10 or more systems reviewed and unremarkable except in HPI and below Const: Denies: fever(s) or chills Eyes: Denies: change in vision ENMT: Denies: throat pain Card: Denies: chest pain Resp: Denies: dyspnea GI: Reports: abdominal pain and melena; Denies: hematochezia : Denies: flank pain Musc: Denies: neck pain Skin/Breast: Denies: rash Neuro: Reports: weakness in extremities and dizziness; Denies: headache(s) Psych: Denies: anxiety or depression Endo: Denies: polyuria [place]/Lymph: Denies: easy bruising All/Imm: Denies: urticaria Medications/Allergies Home Medications Medication Instructions Recorded Confirmed Last Taken Type potassium chloride 20 mEq 20 meq PO BID@09/09/19 08/02/21 05/06/21 History tablet,extended release acetaminophen [Arthritis Pain 650 mg PO Q4H PRN 10/12/19 08/02/21 05/06/21 History Reliever] atorvastatin [Lipitor] 40 mg PO BEDTIME 10/12/19 08/02/21 05/05/21 History cholecalciferol (vitamin D3) 2,000 unit PO DAILY@08 10/12/19 08/02/21 05/06/21 History [Vitamin D3] insulin lispro [Admelog U-100 See Rx Instructions .ROUTE .COMPLEX 12/31/19 08/02/21 05/05/21 History Insulin lispro] pantoprazole [Protonix] 40 mg PO BID@08/07/20 08/02/21 05/06/21 History Novolin 70/30 U-100 Insulin See Rx Instructions .ROUTE .COMPLEX 10/08/20 08/02/21 05/05/21 History albuterol sulfate 2.5 mg INHALATION TID PRN 10/08/20 08/02/21 Unknown History aspirin 325 mg PO BEDTIME@199910/08/20 08/02/21 05/05/21 History digoxin 125 mcg (0.125 mg) tablet See Rx Instructions .ROUTE 11/10/20 08/02/21 05/06/21 History .COMPLEX tab nitroglycerin 0.4 mg sublingual 0.4 mg SUBLINGUAL Q5M PRN #30 tab 02/08/21 08/02/21 Unknown Rx tablet albuterol sulfate 2 puff INHALATION Q6H PRN 03/16/21 08/02/21 Unknown History chlorpheniramine maleate See Rx Instructions .ROUTE .COMPLEX 03/16/21 08/02/21 05/06/21 History [ChlorTabs] cyanocobalamin (vitamin B-12) 500 mcg PO DAILY 03/16/21 08/02/21 05/06/21 History [Vitamin B-12] diphenhydramine HCl [Benadryl] See Rx Instructions .ROUTE .COMPLEX 03/16/21 08/02/21 05/05/21 History docusate sodium [Stool Softener] 250 mg PO BID PRN 03/16/21 08/02/21 Unknown History prednisolone acetate 1 drp OPHTHALMIC (EYE) PRN 03/16/21 08/02/21 05/06/21 History adalimumab 40 mg/0.8 mL 40 mg SUBCUT Q14D #2 ea 04/25/21 08/02/21 Unknown Rx subcutaneous pen kit folic acid 1 mg tablet 1 mg PO DAILY@08 #90 tab 04/25/21 08/02/21 05/06/21 Rx prednisone 2.5 mg tablet 2.5 mg PO DAILY #90 tab 04/25/21 08/02/21 05/06/21 Rx sulfasalazine 500 mg tablet 500 mg PO BID@ #60 tab 04/25/21 08/02/21 05/06/21 Rx ferrous gluconate See Rx Instructions .ROUTE .COMPLEX 05/06/21 08/02/21 05/06/21 History magnesium L-lactate 84 mg PO BID 05/06/21 08/02/21 05/06/21 History methotrexate sodium 7.5 mg PO Q7D 06/08/21 08/02/21 Unknown History hydrocodone 7.5 mg-acetaminophen 1 tab PO TID PRN 30 Days #90 tab 06/21/21 08/02/21 Unknown Rx 325 mg tablet tizanidine 4 mg tablet 4 mg PO TID PRN 30 Days #90 tab 06/21/21 08/02/21 Unknown Rx calcium carbonate 600 mg calcium 600 mg PO DAILY 06/27/21 08/02/21 Unknown History (1,500 mg) tablet levothyroxine 150 mcg tablet 150 mcg PO QAM 06/27/21 08/02/21 Unknown History methylsulfonylmethane 1,000 mg 1,000 mg PO BID 06/27/21 08/02/21 Unknown History tablet duloxetine 30 mg capsule,delayed 30 mg PO DAILY@08 #30 cap 06/28/21 08/02/21 Unknown Rx release amlodipine 10 mg PO DAILY 30 Days tab 07/12/21 08/02/21 Unknown Rx diltiazem HCl 120 mg PO DAILY 30 Days #30 cap 07/12/21 08/02/21 Unknown Rx furosemide 20 mg PO Q48H #90 tab 07/12/21 08/02/21 05/06/21 Rx lisinopril 40 mg PO DAILY #30 tab 07/12/21 08/02/21 Unknown Rx metoprolol tartrate 100 mg PO BID@0900,2100 #60 tab 07/12/21 08/02/21 Unknown Rx pyridostigmine bromide 30 mg PO BID #60 tab 07/12/21 08/02/21 Unknown Rx duloxetine 60 mg PO DAILY@08 08/02/21 08/02/21 Unknown History insulin glargine [Lantus U-100 20 unit SUBCUT BEDTIME 08/02/21 08/02/21 Unknown History Insulin] Allergies Allergy/AdvReac Type Severity Reaction Status Date / Time adhesive tape Allergy rash Verified 08/02/21 01:40 cinnamon Allergy sinus Verified 08/02/21 01:40 codeine Allergy unknown Verified 08/02/21 01:40 cedar Allergy sinus Uncoded 08/02/21 01:40 pine Allergy sinus Uncoded 08/02/21 01:40 pork food Allergy ADR-Nausea Uncoded 08/02/21 01:40 PFSH Acute PFSH: Medical History Anxiety and depression CHF exacerbation Chronic knee pain Chronic low back pain COPD (chronic obstructive pulmonary disease) Oxygen dependent, 2 L at baseline Coronary artery disease COVID-14 August 2020 Fibromyalgia High risk medication use Hyperlipidemia Hypertension Hypothyroidism Immunization counseling Inflammatory arthritis Intermittent atrial fibrillation Because the patient history of frequent fall she was thought to be high risk for bleeding complications. So she is taking only the aspirin at this time. SHE HAS EASY BRUISING WELL Left renal mass Liver cirrhosis Low back pain of over 3 months duration Lung nodule Narrow complex tachycardia Osteoarthritis of knees, bilateral Poorly controlled diabetes mellitus Psychiatric care Recurrent UTI Seronegative rheumatoid arthritis of both hands Unstable angina Urgency incontinence UTI (urinary tract infection) Surgical History History of cardiac cath History of cholecystectomy History of hysterectomy History of knee replacement History of thyroid surgery Family History Other CAD (coronary artery disease) Cancer Denies family history of Anesthesia complication Bleeding disorder Social History Smoking and tobacco status: former smoker Quit status (tobacco): has quit using tobacco Year quit tobacco: 2005 Second hand smoke exposure: No Alcohol intake: never Adopted: No Caregiver/support person: No Lives independently: No Household members: spouse Marital status: Current occupational status: retired History of recent travel: No Current gender identity: Female Female Reproductive History: Date of last menstrual period: 11/18/20 Vitals/I&O/Wt Last Vital Signs Temp 98.0 F 08/02/21 04:58 Pulse 58 L 08/02/21 04:58 Resp 18 08/02/21 04:58 BP 114/56 08/02/21 04:58 Pulse Ox 97 08/02/21 04:58 08/01/21 08/02/21 08/02/21 22:59 06:59 14:59 Intake Total 350 / 350 Balance 350 / 350 Weight last 48 hrs Weight 99.79 kg Physical Exam Narrative: EXAM NARRATIVE: General exam is a white female, conversant, with left upper extremity tremor while talking. She seems to understand her weakness, and her propensity to falls HEENT: Pupils equally round. Oropharynx clear. Neck is supple no lymphadenopathy or thyromegaly Cardiovascular regular rate and rhythm without murmur Lungs clear Abdomen is soft, obese. Mild subjective epigastric tenderness. No obvious organomegaly Extremities no cyanosis clubbing. Trace edema. Skin no rash Neuro no focal deficits Data : 08/02/21 09:56 08/02/21 01:45 Other data: EKG demonstrates sinus bradycardia, right bundle branch block Echocardiogram last month demonstrated an EF of 78%, LVH, 1/[address] head, cervical spine CT no fractures A&P Assessment and plan (1) Anemia: Patient endorses dark stools prior to her [facility] discharge. Check fecal occult Protonix 40 mg IV every 12 hours Clear liquid diet Consult GI for possible EGD Transfusion of 2 units ordered by the emergency department. Check hemoglobin 1 hour after second unit Hold many of her blood pressure medication secondary to lower blood pressure on admission. Status: Acute (2) Syncope: Patient with history of multiple falls, and syncope. Anemia could certainly contribute, although last hospital stay anemia was not a significant and diagnosis was consistent with orthostatic hypotension which responded to pyridostigmine. Status: Acute (3) Orthostatic hypotension: After transfusion, will monitor orthostatic blood pressures. Likely this will start tomorrow. Reevaluate need for Cardizem tomorrow. We will continue metoprolol. Hold amlodipine. Hold lisinopril. Status: Acute (4) Atrial fibrillation: Continue metoprolol and digoxin. Status: Acute (5) Physical deconditioning: PT and OT consults. Physical deconditioning is likely the source of multiple falls, and multiple hospital stays. She would certainly benefit from more rehabilitation. This could certainly lessen her risk of falls in the future, improve quality of life, and lead to less frequent hospital stays. Status: Acute (6) COPD (chronic obstructive pulmonary disease): Oxygen as needed. Albuterol as needed. Status: Chronic Qualifiers: COPD type: unspecified COPD Qualified Code(s): J44.9 - Chronic obstructive pulmonary disease, unspecified Additional A&P Information Full code SCDs for DVT prophylaxis. Anticoagulation contraindicated secondary to anemia Attestations Medical Necessity Statement*: Will need less than 2 midnight stay for evaluation and treatment of anemia. Coding Level of Care Code Acute Formal Wear Rental Clerk for g Fwd Diagnoses Anemia D64.9 Syncope R55 Orthostatic hypotension I95.1 Atrial fibrillation I48.91 Physical deconditioning R53.81 COPD (chronic obstructive pulmonary disease) J44.9 COPD type: unspecified COPD
[2021-08-02 12:35] LABS: Digoxin 1.1 ng/mL (0.6-1.2)
[2021-08-02] MEDS: predniSONE 5 mg Tablet PO (13:00)
[2021-08-02] MEDS: sodium chloride 0.9% 1,000 ML 50 ML IV (13:00)
[2021-08-02] MEDS: digoxin 125 mcg Tablet PO (13:00)
[2021-08-02] MEDS: FUROsemide 10 mg/mL SDV 2mL 20 MG IVP (14:16)
[2021-08-02] MEDS: sodium chloride 0.9% (100 ml) 100 ML 10 ML (14:19)
--- NOTE | 2021-08-02 17:23 | PM.CONSULT ---
Providers/Reason For Consult Consulting Physician/Specialty*: Endoscopist Reason for Consult*: New onset anemia with an appearance of melena Attending Physician: Bayron Browne MD Primary Care Provider: Ami Perez DO History of Present Illness History of Present Illness Myesha Parker is a 70 year old female who presented to the emergency room with a history of multiple falls. During her work-up she was noted to be orthostatic and acutely anemic. Later it was determined that she had some melanotic type stools a few days prior to coming to the emergency room. She was given a transfusion of 2 units of blood today. She has not been on any NSAIDs. Despite having atrial fibrillation, the patient states that she has not been on any blood thinners other than aspirin. She has been on prednisone. Review of Systems General: Reports: 10 or more systems reviewed and unremarkable except in HPI and below Const: Denies: fever(s) Card: Denies: chest pain or irregular heart rhythm Resp: Denies: dyspnea Neuro: Reports: frequent falls and other (Generalized weakness.) Psych: Denies: anxiety or depression [place]/Lymph: Denies: easy bruising, easy bleeding or petechiae All/Imm: Denies: urticaria Meds/Allergies Home Medications and Allergies Home Medications Medication Instructions Recorded Confirmed Last Taken Type potassium chloride 20 mEq 20 meq PO BID@09/09/19 08/02/21 05/06/21 History tablet,extended release acetaminophen [Arthritis Pain 650 mg PO Q4H PRN 10/12/19 08/02/21 05/06/21 History Reliever] atorvastatin [Lipitor] 40 mg PO BEDTIME 10/12/19 08/02/21 05/05/21 History cholecalciferol (vitamin D3) 2,000 unit PO DAILY@10/12/19 08/02/21 05/06/21 History [Vitamin D3] insulin lispro [Admelog U-100 See Rx Instructions .ROUTE .COMPLEX 12/31/19 08/02/21 05/05/21 History Insulin lispro] pantoprazole [Protonix] 40 mg PO BID@,08/07/20 08/02/21 05/06/21 History Novolin 70/30 U-100 Insulin See Rx Instructions .ROUTE .COMPLEX 10/08/20 08/02/21 05/05/21 History albuterol sulfate 2.5 mg INHALATION TID PRN 10/08/20 08/02/21 Unknown History aspirin 325 mg PO BEDTIME@199910/08/20 08/02/21 05/05/21 History digoxin 125 mcg (0.125 mg) tablet See Rx Instructions .ROUTE 11/10/20 08/02/21 05/06/21 History .COMPLEX tab nitroglycerin 0.4 mg sublingual 0.4 mg SUBLINGUAL Q5M PRN #30 tab 02/08/21 08/02/21 Unknown Rx tablet albuterol sulfate 2 puff INHALATION Q6H PRN 03/16/21 08/02/21 Unknown History chlorpheniramine maleate See Rx Instructions .ROUTE .COMPLEX 03/16/21 08/02/21 05/06/21 History [ChlorTabs] cyanocobalamin (vitamin B-12) 500 mcg PO DAILY 03/16/21 08/02/21 05/06/21 History [Vitamin B-12] diphenhydramine HCl [Benadryl] See Rx Instructions .ROUTE .COMPLEX 03/16/21 08/02/21 05/05/21 History docusate sodium [Stool Softener] 250 mg PO BID PRN 03/16/21 08/02/21 Unknown History prednisolone acetate 1 drp OPHTHALMIC (EYE) PRN 03/16/21 08/02/21 05/06/21 History adalimumab 40 mg/0.8 mL 40 mg SUBCUT Q14D #2 ea 04/25/21 08/02/21 Unknown Rx subcutaneous pen kit folic acid 1 mg tablet 1 mg PO DAILY@08 #90 tab 04/25/21 08/02/21 05/06/21 Rx prednisone 2.5 mg tablet 2.5 mg PO DAILY #90 tab 04/25/21 08/02/21 05/06/21 Rx sulfasalazine 500 mg tablet 500 mg PO BID@ #60 tab 04/25/21 08/02/21 05/06/21 Rx ferrous gluconate See Rx Instructions .ROUTE .COMPLEX 05/06/21 08/02/21 05/06/21 History magnesium L-lactate 84 mg PO BID 05/06/21 08/02/21 05/06/21 History methotrexate sodium 7.5 mg PO Q7D 06/08/21 08/02/21 Unknown History hydrocodone 7.5 mg-acetaminophen 1 tab PO TID PRN 30 Days #90 tab 06/21/21 08/02/21 Unknown Rx 325 mg tablet tizanidine 4 mg tablet 4 mg PO TID PRN 30 Days #90 tab 06/21/21 08/02/21 Unknown Rx calcium carbonate 600 mg calcium 600 mg PO DAILY 06/27/21 08/02/21 Unknown History (1,500 mg) tablet levothyroxine 150 mcg tablet 150 mcg PO QAM 06/27/21 08/02/21 Unknown History methylsulfonylmethane 1,000 mg 1,000 mg PO BID 06/27/21 08/02/21 Unknown History tablet duloxetine 30 mg capsule,delayed 30 mg PO DAILY@08 #30 cap 06/28/21 08/02/21 Unknown Rx release amlodipine 10 mg PO DAILY 30 Days tab 07/12/21 08/02/21 Unknown Rx diltiazem HCl 120 mg PO DAILY 30 Days #30 cap 07/12/21 08/02/21 Unknown Rx furosemide 20 mg PO Q48H #90 tab 07/12/21 08/02/21 05/06/21 Rx lisinopril 40 mg PO DAILY #30 tab 07/12/21 08/02/21 Unknown Rx metoprolol tartrate 100 mg PO BID@0900,2100 #60 tab 07/12/21 08/02/21 Unknown Rx pyridostigmine bromide 30 mg PO BID #60 tab 07/12/21 08/02/21 Unknown Rx duloxetine 60 mg PO DAILY@08 08/02/21 08/02/21 Unknown History insulin glargine [Lantus U-100 20 unit SUBCUT BEDTIME 08/02/21 08/02/21 Unknown History Insulin] Allergies Allergy/AdvReac Type Severity Reaction Status Date / Time adhesive tape Allergy rash Verified 08/02/21 01:40 cinnamon Allergy sinus Verified 08/02/21 01:40 codeine Allergy unknown Verified 08/02/21 01:40 cedar Allergy sinus Uncoded 08/02/21 01:40 pine Allergy sinus Uncoded 08/02/21 01:40 pork food Allergy ADR-Nausea Uncoded 08/02/21 01:40 Current Medications Current Medications Generic Name Dose Route Start Last Admin Trade Name Freq PRN Reason Stop Dose Admin Digoxin 125 mcg 08/02/21 12:15 12/07/21 13:00 Digoxin 125 Mcg Tablet PO 125 mcg EVERY OTHER DAY JOCE Administration Sodium Chloride 1,000 mls @ 50 mls/hr 08/02/21 12:00 08/02/21 13:00 Sodium Chloride 0.9% IV 50 mls/hr .Q20H OJCE Administration Pantoprazole Sodium 40 mg 08/02/21 09:30 08/02/21 11:48 Pantoprazole 40 Mg Sdv IVP 40 mg Q12H JOCE Administration Prednisone 5 mg 08/02/21 12:05 08/02/21 13:00 Prednisone 5 Mg Tablet PO 5 mg DAILY JOCE Administration PFSH Acute PFSH: Medical History Anxiety and depression CHF exacerbation Chronic knee pain Chronic low back pain COPD (chronic obstructive pulmonary disease) Oxygen dependent, 2 L at baseline Coronary artery disease COVID-14 August 2020 Fibromyalgia High risk medication use Hyperlipidemia Hypertension Hypothyroidism Immunization counseling Inflammatory arthritis Intermittent atrial fibrillation Because the patient history of frequent fall she was thought to be high risk for bleeding complications. So she is taking only the aspirin at this time. SHE HAS EASY BRUISING WELL Left renal mass Liver cirrhosis Low back pain of over 3 months duration Lung nodule Narrow complex tachycardia Osteoarthritis of knees, bilateral Poorly controlled diabetes mellitus Psychiatric care Recurrent UTI Seronegative rheumatoid arthritis of both hands Unstable angina Urgency incontinence UTI (urinary tract infection) Surgical History History of cardiac cath History of cholecystectomy History of hysterectomy History of knee replacement History of thyroid surgery Family History Other CAD (coronary artery disease) Cancer Denies family history of Anesthesia complication Bleeding disorder Social History Smoking and tobacco status: former smoker Quit status (tobacco): has quit using tobacco Year quit tobacco: 2005 Second hand smoke exposure: No Alcohol intake: never Adopted: No Caregiver/support person: No Lives independently: No Household members: spouse Marital status: Current occupational status: retired History of recent travel: No Current gender identity: Female Female Reproductive History: Date of last menstrual period: 11/18/20 Vitals/I&O/Wt Last Vital Signs Temp 98.3 F 08/02/21 15:11 Pulse 66 08/02/21 15:11 Resp 18 08/02/21 15:11 BP 160/77 08/02/21 15:11 Pulse Ox 94 08/02/21 15:11 08/02/21 08/02/21 08/02/21 06:59 14:59 22:59 Intake Total 350 / 350 240 / 240 Balance 350 / 350 240 / 240 Weight last 48 hrs Weight 220 lb Physical Exam Const: COMMON NORMALS: no acute distress and patient oriented x3 GENERAL APPEARANCE: cooperative, comfortable and well developed HENMT: COMMON NORMALS: normocephalic and moist oral mucous membranes HEAD & SCALP: normocephalic Chest: COMMONS NORMALS: normal inspection of the chest Resp: COMMON NORMALS: normal respiratory effort and clear to auscultation bilaterally AUSCULTATION: clear to auscultation bilaterally Cardio: COMMON NORMALS: regular rate, regular rhythm, No gallops present (Cardio), No murmurs present (Cardio) and No rub (Cardio) RATE: regular rate RHYTHM: regular rhythm Extremity: COMMON NORMALS: normal to inspection Neuro: COMMON NORMALS: patient oriented x3 and no focal motor deficits Skin: COMMON NORMALS: no rashes or lesions noted GENERAL SKIN EXAM: no rashes or lesions noted A&P Assessment and plan (1) Anemia: Due to the patient's history due to the patient's presentation with potentially melanotic stools and anemia, she would benefit from an evaluation of her upper gastrointestinal tract for a UGI bleed. I discussed the risks and alternatives. The risks we discussed include bleeding, perforation, and sedation. She had no further questions and wishes to proceed. We will plan to proceed performing the procedure tomorrow morning at 645. She will be n.p.o. after midnight. Status: Acute (2) Melanotic stools: Status: Acute (3) Anemia: Status: Acute (4) Orthostatic hypotension: Status: Acute Coding Level of Care Code Acute Sheet Rock Applicator for [facility] Diagnoses Anemia D64.9 Melanotic stools K92.1 Anemia D64.9 Orthostatic hypotension I95.1
[2021-08-02] MEDS: pyridostigmine 60 mg Tablet 30 MG PO (17:56)
[2021-08-02] MEDS: insulin lispro 100 unit/1 mL SUBCUT ×2 (17:57→22:35)
[2021-08-02 18:37] LABS: Hematocrit 30.2 % (37.0-47.0); Hemoglobin 9.6 g/dL (11.5-15.3)
[2021-08-02] MEDS: atorvastatin 40 mg Tablet PO (22:21)
[2021-08-02] MEDS: metoprolol tartrate 50 mg Tablet 100 MG PO (22:22)
[2021-08-02] MEDS: acetaminophen 325 mg Tablet 650 MG PO (22:22)
[2021-08-03] VITALS (16 sets, daily range): BP systolic 142–181; BP diastolic 56–90; PULSE 63–78; RESP 14–20; TEMP 36.7–36.9; O2SAT 93–99
[2021-08-03 06:15] LABS: Basophils # 0.1 10^3/uL (0.0-0.1); Basophils % 0.9 %; Eosinophils # 0.1 10^3/uL (0.0-0.8); Eosinophils % 1.4 %; Hematocrit 29.8 % (37.0-47.0); Hemoglobin 9.4 g/dL (11.5-15.3); Lymphocytes # 1.1 10^3/uL (0.8-4.8); Mean Corpuscular HGB Conc 31.5 g/dL (30.0-36.0); Mean Corpuscular Hemoglobin 31.1 pg (28.0-34.0); Mean Corpuscular Volume 98.7 fl (81-99); Mean Platelet Volume 9.3 fL (7.4-10.4); Monocytes # 0.7 10^3/uL (0.2-0.9); Monocytes % 11.3 %; Neutrophils # 3.88 10^3/uL (1.8-7.7); Neutrophils % 66.5 %; Nucleated Red Blood Cells % 0 %; Platelet Count 156 10^3/cmm (130-400); Red Blood Count 3.02 10^6/uL (4.1-5.3); Red Cell Distribution Width 16.7 % (12.1-15.1); White Blood Count 5.8 10^3/uL (4.0-10.0)
--- NOTE | 2021-08-03 06:19 | ANES.PREANE2 ---
Pre-Anesthetic Assessment Pre-Anesthetic Assessment: Height/Weight: Height 1.65 m Weight 99.79 kg Temp Pulse Resp BP Pulse Ox 98.3 F 63 16 171/76 97 08/03/21 04:00 08/03/21 04:00 08/03/21 04:00 08/03/21 04:00 08/03/21 04:00 Preop Diagnosis: Anemia Proposed Procedure: Operation Date: 08/03/21 06:45 Proposed Procedures p EGD(Not Applicable) - Diomedes Butt MD Was Beta Isidro taken within 24 hours: Yes Was Clonidine taken within 24 hours: N/A Last intake: Intake Last Liquid Date 08/02/21 Last Liquid Time 21:30 Last Solid Date 08/02/21 Last Solid Time 17:30 Social: Social History: No alcohol Packs per day: Former smoker Exam: Pre-Anes Outpt Exam: alert, oriented x 3, clear to auscultation bilaterally and regular rate & rhythm Airway: Submandibular: WNL Cervical ROM: Other (Limited extension) MP: 3 Dentition: Full Pulmonary: Pulmonary: COPD and UMANZOR Comments: MASSIMO CTA chest CT/CT angio chest PE protcl [id number] IMPRESSION: 1. No lobar or larger pulmonary artery embolism identified. Limited quality examination. 2. Cardiomegaly with pulmonary vascular congestion. CV/HEM: CV/HEM: Afib, CHF and HTN Comments: DLD GI Bleed TTE CONCLUSIONS Normal left ventricular size and systolic function, EF 78 %. Moderate left ventricular hypertrophy. No regional wall motion abnormalities. Grade I/IV diastolic dysfunction (abnormal relaxation filling pattern), normal to mildly elevated filling pressures. Thickened mitral valve. Moderate mitral annular calcification. Features of aortic valve sclerosis There is no pericardial effusion. There are no intracardiac masses. Compared to the study from 03/16/2021, there may not be a significant change : Comments: Incontinence Hepatic: Hepatic: Cirrohsis GI: GI: GERD Metabolic: Metabolic: DM and Thyroid Comments: Poorly controlled Musc/skel: Musc/skel: Fibromyalgia Neuropsych: Neuropsych: Anxiety Comments: CT Head Report FINDINGS: Brain: Mild to moderate cerebral atrophy and ischemic leukoencephalopathy. Cerebral ventricles: No ventriculomegaly. Paranasal sinuses: Visualized sinuses are unremarkable. No fluid levels. Mastoid air cells: Visualized mastoid air cells are well aerated. Vasculature: Severe calcified intracranial atherosclerotic vessel disease. Bones/joints: Unremarkable. No acute fracture. Soft tissues: Unremarkable. Anesthetic Plan: ASA status: 4 (Active bleed in the setting of morbid obesity, CHF, COPD, uncontrolled DM, atrial fibrillation not on anticoagulation ) Anesthesia: MAC Risk of > 500 ml blood loss (7ml/kg in children): No Other Pertinent Information: I discussed with risk and benefits of anesthesia. We discussed plan for MAC anesthesia and the nature of MAC being a spectrum of anesthesia from wide awake to deep sedation with possibility of recall of intraoperative events and stimuli including discomfort/pain. Patient agrees to proceed. Meds/Allergies Current Medications: Current Medications Generic Name Dose Route Start Last Admin Trade Name Freq PRN Reason Stop Dose Admin Acetaminophen 650 mg 08/02/21 11:56 08/02/21 22:22 Acetaminophen 32 5 Mg Tablet PO 650 mg Q6H PRN Administration Mild/Mod Pain Or Temp >/= 101 Atorvastatin Calci um 40 mg 08/02/21 21:00 08/02/21 22:21 Atorvastatin 40 Mg Tablet PO 40 mg BEDTIME JOCE Administration Digoxin 125 mcg 08/02/21 12:15 08/02/21 13:00 Digoxin 125 Mcg Tablet PO 125 mcg EVERY OTHER DAY S CH Administration Sodium Chloride 1,000 mls @ 50 ml s/hr 08/02/21 12:00 08/02/21 13:00 Sodium Chloride 0.9% IV 50 mls/hr .Q20H JOCE Administration Insulin Human Lisp ro 0 unit 08/02/21 18:00 08/02/21 22:35 Insulin Lispro 1 00 Unit/1 Ml SUBCUT 6 unit WM&BEDTIME JOCE Administration Protocol Metoprolol Tartrat e 100 mg 08/02/21 21:00 08/02/21 22:22 Metoprolol Tartr ate 50 Mg Tablet PO 100 mg BID@0900,2100 JOCE Administration Pantoprazole Sodiu m 40 mg 08/02/21 09:30 08/02/21 22:47 Pantoprazole 40 Mg Sdv IVP 40 mg Q12H JOCE Administration Prednisone 5 mg 08/02/21 12:05 08/02/21 13:00 Prednisone 5 Mg Tablet PO 5 mg DAILY JOCE Administration Pyridostigmine Bro mide 30 mg 08/02/21 18:00 08/02/21 17:56 Pyridostigmine 6 0 Mg Tablet PO 30 mg BID JOCE Administration PFSH Anesthesia PFSH: Medical History Anxiety and depression CHF exacerbation Chronic knee pain Chronic low back pain COPD (chronic obstructive pulmonary disease) Oxygen dependent, 2 L at baseline Coronary artery disease COVID-14 August 2020 Fibromyalgia High risk medication use Hyperlipidemia Hypertension Hypothyroidism Immunization counseling Inflammatory arthritis Intermittent atrial fibrillation Because the patient history of frequent fall she was thought to be high risk for bleeding complications. So she is taking only the aspirin at this time. SHE HAS EASY BRUISING WELL Left renal mass Liver cirrhosis Low back pain of over 3 months duration Lung nodule Narrow complex tachycardia Osteoarthritis of knees, bilateral Poorly controlled diabetes mellitus Psychiatric care Recurrent UTI Seronegative rheumatoid arthritis of both hands Unstable angina Urgency incontinence UTI (urinary tract infection) Surgical History History of cardiac cath History of cholecystectomy History of hysterectomy History of knee replacement History of thyroid surgery Family History Other CAD (coronary artery disease) Cancer Denies family history of Anesthesia complication Bleeding disorder Social History Smoking and tobacco status: former smoker Quit status (tobacco): has quit using tobacco Year quit tobacco: 2005 Second hand smoke exposure: No Alcohol intake: never Adopted: No Caregiver/support person: No Lives independently: No Household members: spouse Marital status: Current occupational status: retired History of recent travel: No Current gender identity: Female Female Reproductive History: Date of last menstrual period: 11/18/20 Data Anesthesia CBC & Chem 7: 08/03/21 05:44 08/02/21 01:45 Other Labs: Laboratory Results - last 48 hr 08/02/21 08/02/21 08/02/21 01:45 01:45 01:45 WBC 4.0 RBC 2.08 L Hgb 6.8 L Hct 21.6 L MCV 103.8 H MCH 32.7 MCHC 31.5 RDW 14.5 Plt Count 146 MPV 9.9 Neut % (Auto) 65.6 Lymph % (Auto) 19.5 [place] % (Auto) 12.0 Eos % (Auto) 1.7 Baso % (Auto) 0.5 Neut # (Auto) 2.63 Lymph # (Auto) 0.8 [place] # (Auto) 0.5 Eos # (Auto) 0.1 Baso # (Auto) 0.0 Nucleated RBC % (auto) 0 Nucleated RBCs # 0.0 PT INR Sodium 139 Potassium 4.9 Chloride 103 Carbon Dioxide 23 Anion Gap 17.9 BUN 29 H Creatinine 1.2 H GFR Calculation Not Reportable Glucose 291 H Calculated Osmolality 305 H Calcium 8.7 Digoxin 1.1 Blood Type Rho(D) Type Antibody Screen Crossmatch 08/02/21 08/02/21 08/02/21 02:20 02:20 02:20 WBC 4.1 RBC 2.11 L Hgb 6.9 L Hct 21.9 L MCV 103.8 H MCH 32.7 MCHC 31.5 RDW 14.6 Plt Count 141 MPV 9.6 Neut % (Auto) 62.1 Lymph % (Auto) 21.3 [place] % (Auto) 13.8 Eos % (Auto) 1.4 Baso % (Auto) 0.7 Neut # (Auto) 2.57 Lymph # (Auto) 0.9 [place] # (Auto) 0.6 Eos # (Auto) 0.1 Baso # (Auto) 0.0 Nucleated RBC % (auto) 0 Nucleated RBCs # 0.0 PT INR Sodium Potassium Chloride Carbon Dioxide Anion Gap BUN Creatinine GFR Calculation Glucose Calculated Osmolality Calcium Digoxin Blood Type Cancelled O Positive Rho(D) Type Cancelled Positive Antibody Screen Cancelled Negative Crossmatch See Detail 08/02/21 08/02/21 08/02/21 09:56 09:56 18:03 WBC RBC Hgb 8.2 L 9.6 L Hct 26.2 L 30.2 L MCV MCH MCHC RDW Plt Count MPV Neut % (Auto) Lymph % (Auto) [place] % (Auto) Eos % (Auto) Baso % (Auto) Neut # (Auto) Lymph # (Auto) [place] # (Auto) Eos # (Auto) Baso # (Auto) Nucleated RBC % (auto) Nucleated RBCs # PT 13.10 INR 0.96 Sodium Potassium Chloride Carbon Dioxide Anion Gap BUN Creatinine GFR Calculation Glucose Calculated Osmolality Calcium Digoxin Blood Type Rho(D) Type Antibody Screen Crossmatch 08/03/21 05:44 WBC 5.8 RBC 3.02 L Hgb 9.4 L Hct 29.8 L MCV 98.7 MCH 31.1 MCHC 31.5 RDW 16.7 H Plt Count 156 MPV 9.3 Neut % (Auto) 66.5 Lymph % (Auto) 19.0 [place] % (Auto) 11.3 Eos % (Auto) 1.4 Baso % (Auto) 0.9 Neut # (Auto) 3.88 Lymph # (Auto) 1.1 [place] # (Auto) 0.7 Eos # (Auto) 0.1 Baso # (Auto) 0.1 Nucleated RBC % (auto) 0 Nucleated RBCs # 0.0 PT INR Sodium Potassium Chloride Carbon Dioxide Anion Gap BUN Creatinine GFR Calculation Glucose Calculated Osmolality Calcium Digoxin Blood Type Rho(D) Type Antibody Screen Crossmatch Cardiac Studies: Echocardiogram 07/11/21
[2021-08-03 06:28] LABS: Alanine Aminotransferase 38 U/L (0-33); Albumin Level 3.6 g/dL (3.5-5.2); Alkaline Phosphatase 106 IU/L (35-105); Anion Gap 16.8 (5-19); Aspartate Amino Transferase 39 U/L (0-32); Blood Urea Nitrogen 19 mg/dL (8-23); Carbon Dioxide 27 mmol/L (22-29); Chloride 102 mmol/L (98-107); Globulin 2.6 g/dL (1.3-4.6); Glucose 146 mg/dL (65-115); Magnesium 1.5 mg/dL (1.7-2.3); Osmolality Calculated 299 mOsm/kg (285-295); Potassium 3.8 mmol/L (3.5-5.1); Sodium 142 mmol/L (136-145); Total Bilirubin 0.7 mg/dL (0.15-1.2); Total Protein 6.2 g/dL (6.6-8.7)
[2021-08-03] MEDS: sodium chloride 0.9% 1,000 ML 30 ML IV (06:44)
[2021-08-03 07:18] LABS: Glucose Point of Care 297 mg/dL (70-110)
[2021-08-03 07:18] LABS: Glucose Point of Care 244 mg/dL (70-110)
--- NOTE | 2021-08-03 08:43 | P.PCN_ITS ---
Procedure Note: Date of procedure: 08/03/21 Pre-procedure diagnosis: Anemia with Probable melana Post-procedure diagnosis: other (Duodenal ulcer-not currently bleeding) Procedure: EGD with biopsy Op report anesthesia: Other (Propofol) Performing Provider: Diomedes Butt Estimated blood loss (mL): 5 Complications: None Pathology: other (Duodenal biopsy, antral biopsy, H. pylori) Condition: stable Disposition: floor Other Information: No active bleeding noted. Coding Level of Care Code Acute Boiler Technician for [facility]
[2021-08-03] MEDS: dilTIAZem ER (24HR) 120 mg Capsule PO (09:08)
[2021-08-03] MEDS: magnesium sulfate premix 2 GM/50 ML PIGGYBACK IV (09:08)
--- NOTE | 2021-08-03 10:12 | P.PN_ITS ---
Subjective Subjective: Interval history: Myesha reports she is doing okay. She underwent an EGD this morning, which demonstrated a duodenal ulcer that was not actively bleeding. She reports her abdominal pain is better than on admission. Medications: Reviewed: Yes Vitals/I&O/Wt Last Vital Signs Temp 98.3 F 08/03/21 07:40 Pulse 66 08/03/21 09:14 Resp 16 08/03/21 09:14 BP 165/74 08/03/21 09:14 Pulse Ox 97 08/03/21 09:14 08/02/21 08/03/21 08/03/21 22:59 06:59 14:59 Intake Total 680 / 920 580 / 1500 200 / 200 Output Total 120 / 120 Balance 680 / 920 460 / 1380 200 / 200 Weight last 48 hrs Weight 99.79 kg Physical Exam Narrative: EXAM NARRATIVE: General exam is a white female, no distress Neck is supple no lymphadenopathy or thyromegaly Cardiovascular regular rate and rhythm with a 2/6 systolic murmur Lungs clear Abdomen is soft, obese. Mild subjective epigastric tenderness. No obvious organomegaly Extremities no cyanosis clubbing. Trace edema. Data : 08/03/21 05:44 08/03/21 05:44 A&P Assessment and plan (1) Anemia: Patient endorses dark stools prior to her usp discharge. Fecal Hemoccult pending Change Protonix to p.o. Advance diet Appreciate GI consult. Patient with duodenal ulcer not currently bleeding Transfused 2 units. Hemoglobin appears stable currently. We will start resuming some of her home blood pressure medications Status: Acute (2) Syncope: Patient with history of multiple falls, and syncope. Anemia could certainly contribute, although last hospital stay anemia was not a significant and diagnosis was consistent with orthostatic hypotension which responded to pyridostigmine. Status: Acute (3) Orthostatic hypotension: Will start checking orthostatic blood pressures Resume patient's Cardizem Status: Acute (4) Atrial fibrillation: Continue metoprolol and digoxin. Cardizem restarted Status: Acute (5) Physical deconditioning: PT and OT consults. Physical deconditioning is likely the source of multiple falls, and multiple hospital stays. She would certainly benefit from more rehabilitation. This could certainly lessen her risk of falls in the future, improve quality of life, and lead to less frequent hospital stays. Status: Acute (6) COPD (chronic obstructive pulmonary disease): Oxygen as needed. Albuterol as needed. Status: Chronic Qualifiers: COPD type: unspecified COPD Qualified Code(s): J44.9 - Chronic obstructive pulmonary disease, unspecified Additional A&P Information Full code SCDs for DVT prophylaxis. Anticoagulation contraindicated secondary to anemia Attestations Medical Necessity Statement*: Needs continued hospitalization for close monitoring following GI bleed, with restart of diet. Coding Level of Care Code Acute Senior Director Insight for [facility] Fwd Diagnoses Anemia D64.9 Syncope R55 Orthostatic hypotension I95.1 Atrial fibrillation I48.91 Physical deconditioning R53.81 COPD (chronic obstructive pulmonary disease) J44.9 COPD type: unspecified COPD
--- NOTE | 2021-08-03 10:15 | PC.CHAP ---
Pastoral Care Encounter/Spiritual Assessment Type of Contact [] Declined unix systems administrator visit [] Patient/Family/Request visit [] Outpatient visit [] Follow-up visit [] Physician referral [] Code/Alert [x] Routine visit [] Staff referral [] Actively dying [x] Patient sleeping [] Family support [] [] Out of room [] Palliative care [] [] Receiving care in room [] Pre-surgical visit [] Trauma [] Long length of stay [] ICU visit [] Other: Relational/Emotional Strength [] Patient feels connected with others/family/visitors/staff [] Distress [] Loneliness/isolation [] Abandonment Spirituality of Patient [] Person of Joelle [] Attends Latter Day of their Joelle [] Believes in Prayer [] Reads Bible or Hoahaoism materials [] There are Spiritual issues to be addressed Acetylene Torch Operator Interventions [] Prayer [] Active listening [] Non-anxious presence [] Spiritual/emotional support [] Crisis/trauma care [] Spiritual counseling [] Bereavement support [] Provided bereavement packet [] Provided Bible/devotional materials [] Provided toy/stuffed animal, coloring book to patient or family member [] Provided Communion [] Anointing/[place] [] Salvation [] Completed spiritual assessment [] Other: Impact on Illness or Injury [] Angry [] Fearful [] Anxious [] Often cries [] Exhaustion [] Unable to work [] Unable to attend jain [] Unable to walk/stand [] Unable to read [] Unable to drive [] Unable to eat/drink [] Unable to sleep [] Unable to be with family [] Patient intubated [] Other: Summary Time spent with patient
[2021-08-03 11:34] LABS: Glucose Point of Care 171 mg/dL (70-110)
--- NOTE | 2021-08-03 13:34 | ANE.PACU2 ---
Inpatient post-anesthesia follow up: Airway intact: Yes Vital signs: Temperature 98.2 F Pulse Rate 69 Respiratory Rate 17 Blood Pressure 144/73 Pulse Oximetry 94 Oxygen Delivery Me thod Nasal Cannula Oxygen Flow Rate 2 Fraction of Inspir ed Oxygen Hydration adequate: Yes Nausea and vomiting: No Pain level: 2 Mental status: Baseline
--- NOTE | 2021-08-03 15:50 | PC.OT ---
Occupational therapy evaluation attempted. Patient asleep upon therapist arrival. Patient did communicate with therapist, however, patient refused to perform any therapy at the time of the evaluation. Plan to attempt following day.
--- NOTE | 2021-08-03 16:24 | PC.PT ---
Patient declined attempted PT evaluation approximately 1600 today, states will attempt tomorrow complains of fatigue; will reattempt then
[2021-08-03 16:56] LABS: Glucose Point of Care 252 mg/dL (70-110)
[2021-08-03] MEDS: pantoprazole DR 40 mg Tablet PO (18:03)
[2021-08-03 21:12] LABS: Glucose Point of Care 312 mg/dL (70-110)
[2021-08-04] VITALS (7 sets, daily range): BP systolic 112–181; BP diastolic 65–98; PULSE 67–132; RESP 16–18; TEMP 36.4–36.8; O2SAT 92–98
--- NOTE | 2021-08-04 04:44 | PC.NURSE ---
Care of patient transferred at 0430. Patient in bed/ sleeping. No s/s of pain or discomfort. O2 2L NC. Telemetry monitoring present. R hand IV/SL. No needs noted at this time.
[2021-08-04 05:46] LABS: Basophils % 0.9 %; Eosinophils # 0.1 10^3/uL (0.0-0.8); Eosinophils % 1.1 %; Hematocrit 30.6 % (37.0-47.0); Mean Corpuscular HGB Conc 32.7 g/dL (30.0-36.0); Mean Corpuscular Volume 94.7 fl (81-99); Mean Platelet Volume 9.3 fL (7.4-10.4); Monocytes # 0.6 10^3/uL (0.2-0.9); Monocytes % 13.5 %; Neutrophils # 2.87 10^3/uL (1.8-7.7); Neutrophils % 62.6 %; Nucleated Red Blood Cells % 0 %; Platelet Count 166 10^3/cmm (130-400); Red Blood Count 3.23 10^6/uL (4.1-5.3); White Blood Count 4.6 10^3/uL (4.0-10.0)
[2021-08-04] MEDS: levothyroxine 150 mcg Tablet PO (06:05)
[2021-08-04 06:06] LABS: H. Pylori / CLO Test Negative
[2021-08-04 06:33] LABS: Glucose Point of Care 204 mg/dL (70-110)
[2021-08-04] MEDS: dilTIAZem ER (24HR) 120 mg Capsule PO (09:23)
[2021-08-04] MEDS: pantoprazole DR 40 mg Tablet PO ×2 (09:23→17:43)
[2021-08-04] MEDS: acetaminophen 325 mg Tablet 650 MG PO ×2 (09:26→21:27)
[2021-08-04] MEDS: digoxin 125 mcg Tablet PO (10:08)
--- NOTE | 2021-08-04 12:12 | PM.PN ---
Subjective Subjective: Interval history: Myesha reports she is doing okay today. Does not complain of abdominal pain. Medications: Reviewed: Yes Vitals/I&O/Wt Last Vital Signs Temp 97.6 F 08/04/21 11:54 Pulse 78 08/04/21 11:54 Resp 16 08/04/21 11:54 BP 169/87 08/04/21 11:54 Pulse Ox 95 08/04/21 11:54 08/03/21 08/04/21 08/04/21 22:59 06:59 14:59 Intake Total 360 / 560 480 / 1040 Output Total 475 / 475 420 / 895 700 / 700 Balance -115 / 85 60 / 145 -700 / -700 Physical Exam Narrative: EXAM NARRATIVE: General exam is a white female, no distress Neck is supple no lymphadenopathy or thyromegaly Cardiovascular irregular, irregular 2/6 systolic murmur Lungs clear Abdomen is soft, obese. No significant tenderness today. No obvious organomegaly Extremities no cyanosis clubbing. Trace edema. Data : 08/04/21 05:17 08/03/21 05:44 A&P Assessment and plan (1) Anemia: Patient endorses dark stools prior to her half-way discharge. EGD demonstrated duodenal ulcer, not currently bleeding Currently on Protonix p.o., and diet has been advanced She was transfused 2 units of packed red blood cells during this hospital stay Status: Acute (2) Syncope: Patient with history of multiple falls, and syncope. Anemia could certainly contribute, although last hospital stay anemia was not a significant and diagnosis was consistent with orthostatic hypotension which responded to pyridostigmine. Status: Acute (3) Orthostatic hypotension: Will start checking orthostatic blood pressures Resume patient's Cardizem Status: Acute (4) Atrial fibrillation: Continue metoprolol and digoxin. Cardizem restarted. Rate controlled currently Status: Acute (5) Physical deconditioning: PT and OT consults. Physical deconditioning is likely the source of multiple falls, and multiple hospital stays. She would certainly benefit from more rehabilitation. This could certainly lessen her risk of falls in the future, improve quality of life, and lead to less frequent hospital stays. Status: Acute (6) COPD (chronic obstructive pulmonary disease): Oxygen as needed. Albuterol as needed. Status: Chronic Qualifiers: COPD type: unspecified COPD Qualified Code(s): J44.9 - Chronic obstructive pulmonary disease, unspecified Additional A&P Information Hypertension. Restart her lisinopril, lower dose Full code SCDs for DVT prophylaxis. Anticoagulation contraindicated secondary to anemia Attestations Medical Necessity Statement*: Awaiting potential discharge to half-way for continued rehabilitation. Coding Level of Care Code Acute Commercial Account Manager for [facility] Fwd Diagnoses Anemia D64.9 Syncope R55 Orthostatic hypotension I95.1 Atrial fibrillation I48.91 Physical deconditioning R53.81 COPD (chronic obstructive pulmonary disease) J44.9 COPD type: unspecified COPD
[2021-08-04 12:13] LABS: Glucose Point of Care 272 mg/dL (70-110)
[2021-08-04] MEDS: lisinopril 10 mg Tablet PO (12:55)
[2021-08-04] MEDS: insulin lispro 100 unit/1 mL SUBCUT ×3 (12:55→21:24)
[2021-08-04 17:20] LABS: Glucose Point of Care 306 mg/dL (70-110)
[2021-08-04] MEDS: pyridostigmine 60 mg Tablet 30 MG PO (17:43)
--- NOTE | 2021-08-04 19:31 | PC.NURSE ---
Report to Dara Mendez LPN at this time.
[2021-08-04 20:40] LABS: Glucose Point of Care 274 mg/dL (70-110)
[2021-08-04] MEDS: atorvastatin 40 mg Tablet PO (21:24)
[2021-08-04] MEDS: metoprolol tartrate 50 mg Tablet 100 MG PO (21:24)
[2021-08-05 04:00] VITALS: BP 153/79; PULSE 69; RESP 17; TEMP 36.9; O2SAT 97
[2021-08-05] MEDS: levothyroxine 150 mcg Tablet PO (06:21)
[2021-08-05 07:43] LABS: Basophils % 0.7 %; Eosinophils # 0.1 10^3/uL (0.0-0.8); Eosinophils % 2.3 %; Hematocrit 32.1 % (37.0-47.0); Hemoglobin 10.5 g/dL (11.5-15.3); Lymphocytes # 1.2 10^3/uL (0.8-4.8); Lymphocytes % 21.5 %; Mean Corpuscular HGB Conc 32.7 g/dL (30.0-36.0); Mean Corpuscular Hemoglobin 31.5 pg (28.0-34.0); Mean Corpuscular Volume 96.4 fl (81-99); Mean Platelet Volume 9.2 fL (7.4-10.4); Monocytes # 0.6 10^3/uL (0.2-0.9); Monocytes % 11.6 %; Neutrophils # 3.51 10^3/uL (1.8-7.7); Neutrophils % 63.4 %; Nucleated Red Blood Cells % 0 %; Platelet Count 180 10^3/cmm (130-400); Red Blood Count 3.33 10^6/uL (4.1-5.3); White Blood Count 5.5 10^3/uL (4.0-10.0)
[2021-08-05 08:00] VITALS: BP 108/72; BP 117/66; BP 159/68; PULSE 72; PULSE 75; PULSE 80; RESP 18; TEMP 37.1; O2SAT 95
[2021-08-05 08:13] LABS: Anion Gap 11.6 (5-19); Blood Urea Nitrogen 19 mg/dL (8-23); Calcium 9.2 mg/dL (8.5-10.5); Carbon Dioxide 34 mmol/L (22-29); Chloride 101 mmol/L (98-107); Glucose 217 mg/dL (65-115); Osmolality Calculated 305 mOsm/kg (285-295); Potassium 3.6 mmol/L (3.5-5.1); Sodium 143 mmol/L (136-145)
[2021-08-05] MEDS: metoprolol tartrate 50 mg Tablet 100 MG PO ×2 (08:22→19:58)
[2021-08-05] MEDS: duloxetine 60 mg Capsule PO (08:22)
[2021-08-05] MEDS: pyridostigmine 60 mg Tablet 30 MG PO ×2 (08:22→17:44)
[2021-08-05] MEDS: predniSONE 5 mg Tablet PO (08:23)
[2021-08-05] MEDS: digoxin 125 mcg Tablet 62.5 MCG PO (08:23)
[2021-08-05] MEDS: lisinopril 10 mg Tablet PO (08:23)
[2021-08-05] MEDS: pantoprazole DR 40 mg Tablet PO ×2 (08:23→17:44)
[2021-08-05] MEDS: dilTIAZem ER (24HR) 120 mg Capsule PO (08:23)
[2021-08-05] MEDS: insulin lispro 100 unit/1 mL SUBCUT ×4 (09:30→22:47)
[2021-08-05 11:45] VITALS: BP 156/72; PULSE 64; RESP 18; TEMP 36.8; O2SAT 97
--- NOTE | 2021-08-05 11:47 | P.PN_ITS ---
Subjective Subjective: Interval history: Myesha reports she is feeling okay. No chest pain. No issues with eating. Eager to go to a nursing facility. Medications: Reviewed: Yes Vitals/I&O/Wt Last Vital Signs Temp 98.3 F 08/05/21 11:45 Pulse 64 08/05/21 11:45 Resp 18 08/05/21 11:45 BP 156/72 08/05/21 11:45 Pulse Ox 97 08/05/21 11:45 08/04/21 08/05/21 08/05/21 22:59 06:59 14:59 Intake Total 830 / 830 100 / 930 240 / 240 Output Total 360 / 1060 250 / 1310 Balance 470 / -230 -150 / -380 240 / 240 Weight last 48 hrs Weight 101.695 kg Physical Exam Narrative: EXAM NARRATIVE: General exam is a white female, no distress Neck is supple no lymphadenopathy or thyromegaly Cardiovascular irregular, irregular 2/6 systolic murmur Lungs clear Abdomen is soft, obese. No significant tenderness today. No obvious organomegaly Extremities no cyanosis clubbing. No obvious edema Data : 08/05/21 07:36 08/05/21 07:36 A&P Assessment and plan (1) Anemia: Patient endorses dark stools prior to her skilled nursing discharge. EGD demonstrated duodenal ulcer, not currently bleeding Currently on Protonix p.o., and diet has been advanced She was transfused 2 units of packed red blood cells during this hospital stay Duodenal ulcer, nonbleeding found on EGD Status: Acute (2) Syncope: Patient with history of multiple falls, and syncope. Anemia could certainly contribute, although last hospital stay anemia was not a significant and diagnosis was consistent with orthostatic hypotension which responded to pyridostigmine. Status: Acute (3) Orthostatic hypotension: Will start checking orthostatic blood pressures Continue patient's Cardizem Status: Acute (4) Atrial fibrillation: Continue metoprolol and digoxin. Hold. Status: Acute (5) Physical deconditioning: PT and OT consults. Physical deconditioning is likely the source of multiple falls, and multiple hospital stays. She would certainly benefit from more rehabilitation. This could certainly lessen her risk of falls in the future, improve quality of life, and lead to less frequent hospital stays. Awaiting nursing facility placement Status: Acute (6) COPD (chronic obstructive pulmonary disease): Oxygen as needed. Albuterol as needed. Status: Chronic Qualifiers: COPD type: unspecified COPD Qualified Code(s): J44.9 - Chronic obstructive pulmonary disease, unspecified Additional A&P Information Hypertension. Continue lisinopril Full code SCDs for DVT prophylaxis. Anticoagulation contraindicated secondary to anemia No need for laboratory tomorrow. Attestations Medical Necessity Statement*: Needs continued hospital stay awaiting nursing facility placement Coding Level of Care Code Acute Dimensional Integration Engineer for [facility] Fwd Diagnoses Anemia D64.9 Syncope R55 Orthostatic hypotension I95.1 Atrial fibrillation I48.91 Physical deconditioning R53.81 COPD (chronic obstructive pulmonary disease) J44.9 COPD type: unspecified COPD
--- NOTE | 2021-08-05 14:27 | PC.CHAP ---
Pastoral Care Encounter/Spiritual Assessment Type of Contact [] Declined size changer visit [] Patient/Family/Request visit [] Outpatient visit [] Follow-up visit [] Physician referral [] Code/Alert [] Routine visit [] Staff referral [] Actively dying [xx] Patient sleeping [] Family support [] [] Out of room [] Palliative care [] [] Receiving care in room [] Pre-surgical visit [] Trauma [] Long length of stay [] ICU visit [] Other: Relational/Emotional Strength [] Patient feels connected with others/family/visitors/staff [] Distress [] Loneliness/isolation [] Abandonment Spirituality of Patient [] Person of Joelle [] Attends Advent of their Joelle [] Believes in Prayer [] Reads Bible or Zoroastrian materials [] There are Spiritual issues to be addressed Lidar Scientist Interventions [] Prayer [] Active listening [] Non-anxious presence [] Spiritual/emotional support [] Crisis/trauma care [] Spiritual counseling [] Bereavement support [] Provided bereavement packet [] Provided Bible/devotional materials [] Provided toy/stuffed animal, coloring book to patient or family member [] Provided Communion [] Anointing/[place] [] Salvation [] Completed spiritual assessment [] Other: Impact on Illness or Injury [] Angry [] Fearful [] Anxious [] Often cries [] Exhaustion [] Unable to work [] Unable to attend restorationism [] Unable to walk/stand [] Unable to read [] Unable to drive [] Unable to eat/drink [] Unable to sleep [] Unable to be with family [] Patient intubated [] Other: Summary Follow up later Time spent with patient
[2021-08-05 15:50] VITALS: BP 149/73; PULSE 65; RESP 18; TEMP 36.9; O2SAT 96
[2021-08-05 19:35] VITALS: BP 140/68; PULSE 63; RESP 18; TEMP 36.8; O2SAT 95
[2021-08-05] MEDS: atorvastatin 40 mg Tablet PO (19:57)
[2021-08-05] MEDS: acetaminophen 325 mg Tablet 650 MG PO (20:03)
[2021-08-05 20:47] VITALS: PULSE 63; RESP 18; O2SAT 95
[2021-08-05 21:31] LABS: Glucose Point of Care 236 mg/dL (70-110)
[2021-08-05 21:32] LABS: Glucose Point of Care 233 mg/dL (70-110)
[2021-08-05 21:32] LABS: Glucose Point of Care 326 mg/dL (70-110)
[2021-08-05 21:32] LABS: Glucose Point of Care 288 mg/dL (70-110)
[2021-08-05 21:32] LABS: Glucose Point of Care 231 mg/dL (70-110)
[2021-08-06] VITALS (9 sets, daily range): BP systolic 111–149; BP diastolic 59–96; PULSE 60–98; RESP 14–18; TEMP 36.4–37.2; O2SAT 90–96
[2021-08-06] MEDS: levothyroxine 150 mcg Tablet PO (06:26)
[2021-08-06] MEDS: lisinopril 10 mg Tablet PO (08:42)
[2021-08-06] MEDS: dilTIAZem ER (24HR) 120 mg Capsule PO (08:42)
[2021-08-06] MEDS: predniSONE 5 mg Tablet PO (08:42)
[2021-08-06] MEDS: pyridostigmine 60 mg Tablet 30 MG PO ×2 (08:42→17:56)
[2021-08-06] MEDS: duloxetine 60 mg Capsule PO (08:42)
[2021-08-06] MEDS: insulin lispro 100 unit/1 mL SUBCUT ×4 (08:42→23:08)
[2021-08-06] MEDS: metoprolol tartrate 50 mg Tablet 100 MG PO ×2 (08:42→20:02)
[2021-08-06] MEDS: pantoprazole DR 40 mg Tablet PO ×2 (08:42→17:56)
[2021-08-06] MEDS: digoxin 125 mcg Tablet PO (08:47)
[2021-08-06 12:29] LABS: Glucose Point of Care 223 mg/dL (70-110)
[2021-08-06 12:29] LABS: Glucose Point of Care 286 mg/dL (70-110)
--- NOTE | 2021-08-06 19:05 | PM.PN ---
Subjective Subjective: Interval history: No acute events overnight, resting comfortably in bed Medications: Reviewed: Yes Vitals/I&O/Wt Last Vital Signs Temp 98.4 F 08/06/21 15:55 Pulse 67 08/06/21 15:55 Resp 18 08/06/21 15:55 BP 148/77 08/06/21 15:55 Pulse Ox 96 08/06/21 15:55 08/06/21 08/06/21 08/06/21 06:59 14:59 22:59 Intake Total 720 / 1320 360 / 360 240 / 600 Output Total 1120 / 1580 460 / 460 Balance -400 / -260 -100 / -100 240 / 140 Weight last 48 hrs Weight 101.695 kg Physical Exam Const: COMMON NORMALS: patient oriented x3 HENMT: COMMON NORMALS: normocephalic and atraumatic HEAD & SCALP: normocephalic and atraumatic Resp: COMMON NORMALS: clear to auscultation bilaterally EFFORT & INSPECTION: Yes symmetric chest movement AUSCULTATION: clear to auscultation bilaterally Cardio: COMMON NORMALS: regular rate, regular rhythm, S1 normal heart sound present, S2 normal heart sound present, No gallops present (Cardio), No murmurs present (Cardio), No rub (Cardio) and Peripheral pulses 2+ throughout RATE: regular rate RHYTHM: regular rhythm HEART SOUNDS: S1 normal heart sound present and S2 normal heart sound present PERIPHERAL PULSES: Peripheral pulses 2+ throughout GI: COMMON NORMALS: Normal to inspection, nondistended, normoactive bowel sounds present, Soft to palpation, non-tender, No hepatosplenomegaly present and no masses AUSCULTATION: Yes normoactive bowel sounds PALPATION: Yes Soft to palpation and Yes No hepatosplenomegaly present RECTAL EXAM: deferred Extremity: COMMON NORMALS: no clubbing, cyanosis or edema and no pedal edema Neuro: COMMON NORMALS: patient oriented x3 Data : 08/05/21 07:36 08/05/21 07:36 Micro: Microbiology 08/05/21 09:53 Occult Blood (FIT) - Final Stool Routine Collection A&P Assessment and plan (1) Anemia: Patient endorses dark stools prior to her care home discharge. EGD demonstrated duodenal ulcer, not currently bleeding Currently on Protonix p.o., and diet has been advanced She was transfused 2 units of packed red blood cells during this hospital stay Duodenal ulcer, nonbleeding found on EGD Status: Acute (2) Syncope: Patient with history of multiple falls, and syncope. Anemia could certainly contribute, although last hospital stay anemia was not a significant and diagnosis was consistent with orthostatic hypotension which responded to pyridostigmine. Status: Acute (3) Orthostatic hypotension: Will start checking orthostatic blood pressures Continue patient's Cardizem Status: Acute (4) Atrial fibrillation: Continue metoprolol and digoxin. Hold. Status: Acute (5) Physical deconditioning: PT and OT consults. Physical deconditioning is likely the source of multiple falls, and multiple hospital stays. She would certainly benefit from more rehabilitation. This could certainly lessen her risk of falls in the future, improve quality of life, and lead to less frequent hospital stays. Awaiting nursing facility placement Status: Acute (6) COPD (chronic obstructive pulmonary disease): Oxygen as needed. Albuterol as needed. Status: Chronic Qualifiers: COPD type: unspecified COPD Qualified Code(s): J44.9 - Chronic obstructive pulmonary disease, unspecified Additional A&P Information Hypertension. Continue lisinopril Full code SCDs for DVT prophylaxis. Anticoagulation contraindicated secondary to anemia No need for laboratory tomorrow. Attestations Medical Necessity Statement*: Patient is currently awaiting care home placement. Coding Level of Care Code Acute Branch Office Manager for [facility] Fwd Diagnoses Anemia D64.9 Syncope R55 Orthostatic hypotension I95.1 Atrial fibrillation I48.91 Physical deconditioning R53.81 COPD (chronic obstructive pulmonary disease) J44.9 COPD type: unspecified COPD
[2021-08-06] MEDS: atorvastatin 40 mg Tablet PO (20:02)
--- NOTE | 2021-08-06 20:17 | PC.NURSE ---
Patient's brought in PT home medication Humira Pen Inj. stated that medication is due tonight 08/06. Medication was sent to pharmacy to be labeled and was administered subQ to the right leg at .
[2021-08-06 22:38] LABS: Glucose Point of Care 302 mg/dL (70-110)
[2021-08-06 22:38] LABS: Glucose Point of Care 313 mg/dL (70-110)
[2021-08-07] VITALS (8 sets, daily range): BP systolic 147–163; BP diastolic 56–82; PULSE 57–70; RESP 16–20; TEMP 36.5–37.1; O2SAT 96–99
[2021-08-07 06:24] LABS: Glucose Point of Care 210 mg/dL (70-110)
[2021-08-07] MEDS: levothyroxine 150 mcg Tablet PO (07:02)
[2021-08-07] MEDS: pyridostigmine 60 mg Tablet 30 MG PO ×2 (08:03→17:37)
[2021-08-07] MEDS: metoprolol tartrate 50 mg Tablet 100 MG PO ×2 (08:03→20:48)
[2021-08-07] MEDS: dilTIAZem ER (24HR) 120 mg Capsule PO (08:04)
[2021-08-07] MEDS: lisinopril 10 mg Tablet PO (08:04)
[2021-08-07] MEDS: digoxin 125 mcg Tablet 62.5 MCG PO (08:04)
[2021-08-07] MEDS: pantoprazole DR 40 mg Tablet PO ×2 (08:04→17:37)
[2021-08-07] MEDS: duloxetine 60 mg Capsule PO (08:04)
[2021-08-07] MEDS: predniSONE 5 mg Tablet PO (08:04)
[2021-08-07] MEDS: insulin lispro 100 unit/1 mL SUBCUT ×4 (08:05→22:07)
[2021-08-07 10:43] LABS: Basophils % 0.8 %; Eosinophils # 0.1 10^3/uL (0.0-0.8); Eosinophils % 1.1 %; Hematocrit 29.5 % (37.0-47.0); Hemoglobin 9.7 g/dL (11.5-15.3); Lymphocytes # 0.7 10^3/uL (0.8-4.8); Lymphocytes % 13.6 %; Mean Corpuscular HGB Conc 32.9 g/dL (30.0-36.0); Mean Corpuscular Hemoglobin 31.5 pg (28.0-34.0); Mean Corpuscular Volume 95.8 fl (81-99); Mean Platelet Volume 9.6 fL (7.4-10.4); Monocytes # 0.5 10^3/uL (0.2-0.9); Monocytes % 9.4 %; Neutrophils # 3.96 10^3/uL (1.8-7.7); Neutrophils % 74.7 %; Nucleated Red Blood Cells % 0 %; Platelet Count 168 10^3/cmm (130-400); Red Blood Count 3.08 10^6/uL (4.1-5.3); Red Cell Distribution Width 15.2 % (12.1-15.1); White Blood Count 5.3 10^3/uL (4.0-10.0)
[2021-08-07 11:07] LABS: Anion Gap 14.6 (5-19); Blood Urea Nitrogen 25 mg/dL (8-23); Calcium 8.8 mg/dL (8.5-10.5); Carbon Dioxide 31 mmol/L (22-29); Chloride 98 mmol/L (98-107); Glucose 334 mg/dL (65-115); Osmolality Calculated 307 mOsm/kg (285-295); Potassium 3.6 mmol/L (3.5-5.1); Sodium 140 mmol/L (136-145)
--- NOTE | 2021-08-07 12:31 | PC.CHAP ---
Pastoral Care Encounter/Spiritual Assessment Type of Contact [] Declined marble worker visit [] Patient/Family/Request visit [] Outpatient visit [XX] Follow-up visit [] Physician referral [] Code/Alert [XX] Routine visit [] Staff referral [] Actively dying [] Patient sleeping [] Family support [] [] Out of room [] Palliative care [] [] Receiving care in room [] Pre-surgical visit [] Trauma [] Long length of stay [] ICU visit [XX] Other: Spouse was present Relational/Emotional Strength [XX] Patient feels connected with others/family/visitors/staff [] Distress [] Loneliness/isolation [] Abandonment Spirituality of Patient [XX] Person of Joelle [] Attends Yarsani of their Joelle [XX] Believes in Prayer [] Reads Bible or Restoration materials [] There are Spiritual issues to be addressed Employee Communications Coordinator Interventions [XX] Prayer [XX] Active listening [XX] Non-anxious presence [XX] Spiritual/emotional support [] Crisis/trauma care [XX] Spiritual counseling [] Bereavement support [] Provided bereavement packet [] Provided Bible/devotional materials [] Provided toy/stuffed animal, coloring book to patient or family member [] Provided Communion [] Anointing/[place] [] Salvation [XX] Completed spiritual assessment [] Other: Impact on Illness or Injury [XX] Angry [] Fearful [] Anxious [] Often cries [] Exhaustion [] Unable to work [] Unable to attend christianity [XX] Unable to walk/stand [] Unable to read [] Unable to drive [] Unable to eat/drink [] Unable to sleep [] Unable to be with family [] Patient intubated [] Other: Summary: Pt has experienced several falls within the past 1 - 2 months. This has been stressful and frustrating for the pt and her spouse. During this admission, a probable contributing factor has been identified so the couple is optimistic that pt will be able to regain strength. The adjustment to this season in their lives was discussed, as well as support system, coping, and sources of strength. Pt and welcomed marble worker prayer. Time spent with patient: 25 mins
[2021-08-07] MEDS: acetaminophen 325 mg Tablet 650 MG PO (12:58)
--- NOTE | 2021-08-07 18:03 | P.PN_ITS ---
Subjective Subjective: Interval history: No acute events overnight, resting comfortably in bed Medications: Reviewed: Yes Vitals/I&O/Wt Last Vital Signs Temp 97.7 F 08/07/21 16:00 Pulse 70 08/07/21 16:00 Resp 20 H 08/07/21 16:00 BP 158/82 08/07/21 16:00 Pulse Ox 98 08/07/21 16:00 08/07/21 08/07/21 08/07/21 06:59 14:59 22:59 Intake Total 720 / 720 Output Total 500 / 500 Balance 220 / 220 Physical Exam Const: COMMON NORMALS: patient oriented x3 HENMT: COMMON NORMALS: normocephalic and atraumatic HEAD & SCALP: normocephalic and atraumatic Resp: COMMON NORMALS: clear to auscultation bilaterally EFFORT & INSPECTION: Yes symmetric chest movement AUSCULTATION: clear to auscultation bilaterally Cardio: COMMON NORMALS: regular rate, regular rhythm, S1 normal heart sound present, S2 normal heart sound present, No gallops present (Cardio), No murmurs present (Cardio), No rub (Cardio) and Peripheral pulses 2+ throughout RATE: regular rate RHYTHM: regular rhythm HEART SOUNDS: S1 normal heart sound present and S2 normal heart sound present PERIPHERAL PULSES: Peripheral pulses 2+ throughout GI: COMMON NORMALS: Normal to inspection, nondistended, normoactive bowel sounds present, Soft to palpation, non-tender, No hepatosplenomegaly present and no masses AUSCULTATION: Yes normoactive bowel sounds PALPATION: Yes Soft to palpation and Yes No hepatosplenomegaly present RECTAL EXAM: deferred Extremity: COMMON NORMALS: no clubbing, cyanosis or edema and no pedal edema Neuro: COMMON NORMALS: patient oriented x3 Data : 08/07/21 10:36 08/07/21 10:36 A&P Assessment and plan (1) Anemia: Patient endorses dark stools prior to her half-way discharge. EGD demonstrated duodenal ulcer, not currently bleeding Currently on Protonix p.o., and diet has been advanced She was transfused 2 units of packed red blood cells during this hospital stay Duodenal ulcer, nonbleeding found on EGD Status: Acute (2) Syncope: Patient with history of multiple falls, and syncope. Anemia could certainly contribute, although last hospital stay anemia was not a significant and diagnosis was consistent with orthostatic hypotension which responded to pyridostigmine. Status: Acute (3) Orthostatic hypotension: Will start checking orthostatic blood pressures Continue patient's Cardizem Status: Acute (4) Atrial fibrillation: Continue metoprolol and digoxin. Hold. Status: Acute (5) Physical deconditioning: PT and OT consults. Physical deconditioning is likely the source of multiple falls, and multiple hospital stays. She would certainly benefit from more rehabilitation. This c ould certainly lessen her risk of falls in the future, improve quality of life, and lead to less frequent hospital stays. Awaiting nursing facility placement Status: Acute (6) COPD (chronic obstructive pulmonary disease): Oxygen as needed. Albuterol as needed. Status: Chronic Qualifiers: COPD type: unspecified COPD Qualified Code(s): J44.9 - Chronic obstructive pulmonary disease, unspecified Additional A&P Information Hypertension. Continue lisinopril Full code SCDs for DVT prophylaxis. Anticoagulation contraindicated secondary to anemia No need for laboratory tomorrow. Attestations Medical Necessity Statement*: Currently awaiting half-way placement. Coding Level of Care Code Acute Laydown Machine Operator for [facility] Fwd Diagnoses Anemia D64.9 Syncope R55 Orthostatic hypotension I95.1 Atrial fibrillation I48.91 Physical deconditioning R53.81 COPD (chronic obstructive pulmonary disease) J44.9 COPD type: unspecified COPD
[2021-08-07] MEDS: atorvastatin 40 mg Tablet PO (20:48)
--- NOTE | 2021-08-07 22:00 | PC.NURSE ---
Pt. HS blood glucose level is 264. Machine not crossing over into [facility] at this time.
[2021-08-07 22:33] LABS: Glucose Point of Care 295 mg/dL (70-110)
[2021-08-07 22:33] LABS: Glucose Point of Care 264 mg/dL (70-110)
[2021-08-07 22:33] LABS: Glucose Point of Care 443 mg/dL (70-110)
[2021-08-08] VITALS (8 sets, daily range): BP systolic 125–152; BP diastolic 50–78; PULSE 62–68; RESP 16–18; TEMP 36.6–36.9; O2SAT 96–98
[2021-08-08] MEDS: acetaminophen 325 mg Tablet 650 MG PO (00:22)
[2021-08-08 04:26] LABS: Basophils # 0.1 10^3/uL (0.0-0.1); Basophils % 1.2 %; Eosinophils # 0.1 10^3/uL (0.0-0.8); Eosinophils % 1.8 %; Hematocrit 29.7 % (37.0-47.0); Hemoglobin 9.7 g/dL (11.5-15.3); Lymphocytes # 1.1 10^3/uL (0.8-4.8); Lymphocytes % 22.2 %; Mean Corpuscular HGB Conc 32.7 g/dL (30.0-36.0); Mean Corpuscular Volume 94.9 fl (81-99); Monocytes # 0.7 10^3/uL (0.2-0.9); Monocytes % 13.3 %; Neutrophils # 3.03 10^3/uL (1.8-7.7); Neutrophils % 61.1 %; Nucleated Red Blood Cells % 0 %; Platelet Count 183 10^3/cmm (130-400); Red Blood Count 3.13 10^6/uL (4.1-5.3); Red Cell Distribution Width 14.7 % (12.1-15.1)
[2021-08-08 04:48] LABS: Anion Gap 17.7 (5-19); Blood Urea Nitrogen 27 mg/dL (8-23); Calcium 9.2 mg/dL (8.5-10.5); Carbon Dioxide 28 mmol/L (22-29); Chloride 100 mmol/L (98-107); Glucose 186 mg/dL (65-115); Osmolality Calculated 304 mOsm/kg (285-295); Potassium 3.7 mmol/L (3.5-5.1); Sodium 142 mmol/L (136-145)
[2021-08-08] MEDS: levothyroxine 150 mcg Tablet PO (06:51)
[2021-08-08 06:59] LABS: Glucose Point of Care 214 mg/dL (70-110)
[2021-08-08] MEDS: lisinopril 10 mg Tablet PO (08:31)
[2021-08-08] MEDS: digoxin 125 mcg Tablet PO (08:31)
[2021-08-08] MEDS: predniSONE 5 mg Tablet PO (08:31)
[2021-08-08] MEDS: dilTIAZem ER (24HR) 120 mg Capsule PO (08:32)
[2021-08-08] MEDS: duloxetine 60 mg Capsule PO (08:32)
[2021-08-08] MEDS: pantoprazole DR 40 mg Tablet PO (08:32)
[2021-08-08] MEDS: pyridostigmine 60 mg Tablet 30 MG PO (08:32)
[2021-08-08] MEDS: insulin lispro 100 unit/1 mL SUBCUT ×2 (08:33→13:21)
[2021-08-08] MEDS: metoprolol tartrate 50 mg Tablet 100 MG PO (08:36)
[2021-08-08 11:54] LABS: Glucose Point of Care 315 mg/dL (70-110)
--- NOTE | 2021-08-08 16:38 | P.DS_ITS ---
Discharge Providers Date of Admission: 08/02/21 02:51 Date of Discharge: August 08, 2021 Attending Provider at Admission: Sangita Lockhart MD Attending Provider at Discharge: Jace Renee MD Primary Care Provider: Ami ePrez DO Diagnoses at Discharge Discharge Diagnosis (1) Anemia: Status: Acute (2) Syncope: Status: Acute (3) Orthostatic hypotension: Status: Acute (4) Atrial fibrillation: Status: Acute (5) Physical deconditioning: Status: Acute (6) COPD (chronic obstructive pulmonary disease): Status: Chronic Permanent problem details: Oxygen dependent, 2 L at baseline Qualifiers: COPD type: unspecified COPD Qualified Code(s): J44.9 - Chronic obstructive pulmonary disease, unspecified Reason for Visit Reason for Visit: FALL Hospital Course Hospital Course Is a 70-year-old female with a past medical history of atrial fibrillation not on anticoagulation, not on anticoagulation due to risk of falls COPD, anxiety depression, CAD, hypertension, hypothyroidism, who presents to [facility] secondary to a fall Patient was admitted to [facility] for anemia, secondary to GI bleed, EGD showed duodenal ulcer, pathology positive for H. pylori, she required 2 units of PRBC, discharged on clarithromycin triple therapy, continue to hold aspirin on discharge, hold atorvastatin until erythromycin is completed, follow- up with primary care provider as outpatient. For her physical deconditioning, attempts were made to place a long-term, her insurance company declined, discharged with home health care. For atrial fibrillation, continue to hold aspirin, decision to resume in the next 2 to 4 weeks based on consultation with primary care. Physical Exam Const: COMMON NORMALS: no acute distress and patient oriented x3 Resp: COMMON NORMALS: normal respiratory effort, No retractions, No use of accessory muscles and clear to auscultation bilaterally AUSCULTATION: clear to auscultation bilaterally Cardio: COMMON NORMALS: regular rate, regular rhythm, S1 normal heart sound present and S2 normal heart sound present RATE: regular rate RHYTHM: regular rhythm HEART SOUNDS: S1 normal heart sound present and S2 normal he art sound present GI: COMMON NORMALS: Normal to inspection, nondistended, normoactive bowel sounds present, Soft to palpation and non-tender PALPATION: Yes Soft to palpation Extremity: COMMON NORMALS: no pedal edema Neuro: COMMON NORMALS: patient oriented x3 Psych: COMMON NORMALS: mental status grossly normal Discharge Data Data Completed and Pending: Completed Studies During Hospitalization Category Date Time Status CT cervical spin wo con* [id number] Urge nt Cat Scan 08/02/21 01:[address] head wo con* [id number] Urgent Cat Scan 08/02/21 01:28 Completed Pathology: Surgic al [PTH] Routine Pth 08/03/21 07:04 Completed Pending at discharge Category Date Time Status Basic Metabolic P estevan AM LABS Lab 08/09/21 04:00 Ordered Basic Metabolic P estevan AM LABS Lab 08/10/21 04:00 Ordered Complete Blood Co unt w/Auto AM LABS Lab 08/09/21 04:00 Ordered Complete Blood Co unt w/Auto AM LABS Lab 08/10/21 04:00 Ordered Labs from last 24 hours 08/08/21 08/08/21 08/08/21 11:46 06:48 03:19 WBC RBC Hgb Hct MCV MCH MCHC RDW Plt Count MPV Neut % (Auto) Lymph % (Auto) [place] % (Auto) Eos % (Auto) Baso % (Auto) Neut # (Auto) Lymph # (Auto) [place] # (Auto) Eos # (Auto) Baso # (Auto) Nucleated RBC % (a uto) Nucleated RBCs # Sodium 142 Potassium 3.7 Chloride 100 Carbon Dioxide 28 Anion Gap 17.7 BUN 27 H Creatinine 0.9 GFR Calculation Not Reportable Glucose 186 H POC Glucose 315 H 214 H Calculated Osmolal ity 304 H Calcium 9.2 08/08/21 08/07/21 08/07/21 03:19 21:04 17:15 WBC 5.0 RBC 3.13 L Hgb 9.7 L Hct 29.7 L MCV 94.9 MCH 31.0 MCHC 32.7 RDW 14.7 Plt Count 183 MPV 10.0 Neut % (Auto) 61.1 Lymph % (Auto) 22.2 [place] % (Auto) 13.3 Eos % (Auto) 1.8 Baso % (Auto) 1.2 Neut # (Auto) 3.03 Lymph # (Auto) 1.1 [place] # (Auto) 0.7 Eos # (Auto) 0.1 Baso # (Auto) 0.1 Nucleated RBC % (a uto) 0 Nucleated RBCs # 0.0 Sodium Potassium Chloride Carbon Dioxide Anion Gap BUN Creatinine GFR Calculation Glucose POC Glucose 264 H 295 H Calculated Osmolal ity Calcium 08/07/21 12:12 WBC RBC Hgb Hct MCV MCH MCHC RDW Plt Count MPV Neut % (Auto) Lymph % (Auto) [place] % (Auto) Eos % (Auto) Baso % (Auto) Neut # (Auto) Lymph # (Auto) [place] # (Auto) Eos # (Auto) Baso # (Auto) Nucleated RBC % (a uto) Nucleated RBCs # Sodium Potassium Chloride Carbon Dioxide Anion Gap BUN Creatinine GFR Calculation Glucose POC Glucose 443 H Calculated Osmolal ity Calcium Vitals: Last Vital Signs Temp 98 F 08/08/21 16:37 Pulse 65 08/08/21 16:37 Resp 16 08/08/21 16:37 BP 147/65 08/08/21 16:37 Pulse Ox 98 08/08/21 16:37 Discharge Plan Discharge Patient Disposition: Home Condition: Stable Prescriptions: New clarithromycin 500 mg Tablet 500 mg PO BID 14 Days Qty: 28 RF: 0 metronidazole 500 mg Tablet 500 mg PO TID 14 Days Qty: 42 RF: 0 pantoprazole 40 mg Tablet,Delayed Release (Dr/Ec) 40 mg PO BID 30 Days Qty: 60 RF: 0 Continued Humira Pen 40 mg/0.8 mL pen injector kit 40 mg SUBCUT Q14D Qty: 2 RF: 3 Hold Instructions: Resume on 08/02/21. folic acid 1 mg tablet 1 mg PO DAILY@08 Qty: 90 RF: 1 prednisone 2.5 mg tablet 2.5 mg PO DAILY Qty: 90 RF: 1 sulfasalazine 500 mg tablet 500 mg PO BID@08,17 Qty: 60 RF: 3 nitroglycerin [Nitrostat] 0.4 mg tablet, sublingual 0.4 mg SUBLINGUAL Q5M PRN (Reason: Chest Pain) Qty: 30 RF: 3 duloxetine [Cymbalta] 30 mg capsule,delayed release(DR/EC) 30 mg PO DAILY@08 Qty: 30 RF: 2 hydrocodone-acetaminophen 7.5-325 mg tablet 1 tab PO TID PRN (Reason: pain) 30 Days Qty: 90 RF: 0 tizanidine 4 mg tablet 4 mg PO TID PRN (Reason: muscle spasticity) 30 Days Qty: 90 RF: 1 levothyroxine [Euthyrox] 150 mcg tablet 150 mcg PO QAM RF: 0 calcium carbonate [Calcium 600] 600 mg calcium (1,500 mg) tablet 600 mg PO DAILY RF: 0 methylsulfonylmethane [MSM] 1,000 mg tablet 1,000 mg PO BID RF: 0 acetaminophen [Arthritis Pain Reliever] 650 mg Tablet Extended Release 650 mg PO Q4H PRN (Reason: Pain) RF: 0 cholecalciferol (vitamin D3) [Vitamin D3] 25 mcg (1,000 unit) Tablet 2,000 unit PO DAILY@08 RF: 0 albuterol sulfate 2.5 mg /3 mL (0.083 %) Solution For Nebulization 2.5 mg inhalation TID PRN (Reason: Shortness Of Breath) RF: 0 Novolin 70/30 U-100 Insulin 100 unit/mL (70-30) suspension See Rx Instructions .ROUTE .COMPLEX RF: 0 albuterol sulfate 90 mcg/actuation Hfa Aerosol Inhaler 2 puff INHALATION Q6H PRN (Reason: Shortness Of Breath) RF: 0 docusate sodium [Stool Softener] 250 mg Capsule 250 mg PO BID PRN (Reason: Constipation) RF: 0 cyanocobalamin (vitamin B-12) [Vitamin B-12] 500 mcg Tablet 500 mcg PO DAILY RF: 0 chlorpheniramine maleate [ChlorTabs] 4 mg Tablet See Rx Instructions .ROUTE .COMPLEX RF: 0 prednisolone acetate 1 % Drops,Suspension 1 drp ophthalmic (eye) PRN RF: 0 diphenhydramine HCl [Benadryl] 25 mg Capsule See Rx Instructions .ROUTE .COMPLEX RF: 0 methotrexate sodium 2.5 mg tablet 7.5 mg PO Q7D RF: 0 diltiazem HCl 120 mg Capsule,Extended Release 24hr 120 mg PO DAILY 30 Days Qty: 30 RF: 3 pyridostigmine bromide 60 mg Tablet 30 mg PO BID Qty: 60 RF: 4 metoprolol tartrate 50 mg Tablet 100 mg PO BID@0900,2100 Qty: 60 RF: 3 furosemide 40 mg tablet 20 mg PO Q48H Qty: 90 RF: 3 duloxetine 60 mg capsule,delayed release(DR/EC) 60 mg PO DAILY@08 RF: 0 insulin lispro [Admelog U-100 Insulin lispro] 100 unit/mL Solution See Rx Instructions .ROUTE .COMPLEX RF: 0 digoxin 125 mcg (0.125 mg) tablet See Rx Instructions .ROUTE .COMPLEX RF: 0 ferrous gluconate 324 mg (37.5 mg iron) tablet See Rx Instructions .ROUTE .COMPLEX RF: 0 magnesium L-lactate 84 mg tablet extended release 84 mg PO BID RF: 0 Changed lisinopril 20 mg Tablet 10 mg PO DAILY Qty: 30 RF: 0 potassium chloride 20 mEq tablet extended release 20 meq PO DAILY Qty: 0 RF: 0 Held atorvastatin [Lipitor] 40 mg Tablet 40 mg PO BEDTIME RF: 0 Hold Instructions: Resume on 08/22/21. Discontinued aspirin 325 mg Tablet 325 mg PO BEDTIME@1999 RF: 0 Hold Instructions: Resume on 10/18/20. amlodipine 10 mg Tablet 10 mg PO DAILY 30 Days RF: 0 Lantus U-100 Insulin 100 unit/mL solution 20 unit SUBCUT BEDTIME RF: 0 pantoprazole [Protonix] 40 mg tablet,delayed release (DR/EC) 40 mg PO BID@,17 RF: 0 Discharge Orders: Discharge Order (Routine); Ordered 08/08/21 Ordered By: Jace Renee Referrals: [facility] [Outside] Ami Perez DO [Primary Care Provider] - 08/15/21 10:30 am Discharge Diet: Cardiac Discharge Activity: Resume usual activity Patient Instructions: GI Discharge Instructions, Opioid Safety Activity Restrictions/Additional Instructions: -Please take antibiotics as prescribed for H. pylori infection -Please continue to hold aspirin -Follow-up with primary care provider as outpatient for decision to resume aspirin, roughly 2 to 4 weeks -Hold atorvastatin until clarithromycin has completed Discharge Attestations Time Spent in Discharge Care*: less than 30 min Status at Discharge: Cognitive status at discharge: cognitively intact , Behavioral status at discharge: cooperative , Quality Metrics Clinical Quality Measures During this hospital stay, did patient experience: None Coding Level of Care Code Acute g FW DC note Diagnoses Anemia D64.9 Syncope R55 Orthostatic hypotension I95.1 Atrial fibrillation I48.91 Physical deconditioning R53.81 COPD (chronic obstructive pulmonary disease) J44.9 COPD type: unspecified COPD
--- NOTE | 2021-08-10 09:32 | PC.SOCIAL ---
Addendum entered by Estelita Mack RN 08/10/21 09:35: Notified spouse to hold digoxin while patient on abx. Asked spouse if he needs to write this down however, he repeats no and verbalized understanding by repeating the instructions given verbally and that he will remember. Original Note: Tsering called from [facility] regarding the Clarithomycin and interaction with Digoxin. Per Pharmacist it increased the effects of digoxin, Called Dr Vargas and verbal order given to hold the digoxin during treatment of above mentioned abx. Called Tsering back at pharmacy and let her know will also reach out to patient.
== END 2021-08-08 17:37 | disposition home or self-care (01) ==
LOC: ER 03:02 → MEDSURG 05:54
PROVIDERS: Family Medicine; Internal Medicine; Admitting Provider Hospitalist; Emergency Provider Emergency Medicine; PCP Internal Medicine; Visit Provider Family Medicine
PROC: 0DJ08ZZ Inspection of Upper Intestinal Tract, Via Natural or Artificial Opening Endoscopic (ICD-10-PCS; CPT 43235; principal; 2021-08-03 06:45)
DX: D64.9 Anemia, unspecified (principal); R55 Syncope and collapse; I95.1 Orthostatic hypotension; I48.91 Unspecified atrial fibrillation; R53.81 Other malaise; J44.9 Chronic obstructive pulmonary disease, unspecified; I25.10 Atherosclerotic heart disease of native coronary artery without angina pectoris; E03.9 Hypothyroidism, unspecified; K92.1 Melena; I11.0 Hypertensive heart disease with heart failure; I50.9 Heart failure, unspecified; E66.9 Obesity, unspecified; Z68.37 Body mass index [BMI] 37.0-37.9, adult; K26.9 Duodenal ulcer, unspecified as acute or chronic, without hemorrhage or perforation; F41.9 Anxiety disorder, unspecified; F32.A Depression, unspecified; Z79.82 Long term (current) use of aspirin; Z79.4 Long term (current) use of insulin; Z87.891 Personal history of nicotine dependence; Z86.16 Personal history of COVID-19; Z99.81 Dependence on supplemental oxygen
CPT/HCPCS: 12345; 36415; 36416; 36430; 43239; 70450; 72125; 80048; 80053; 80162; 82274; 82962; 83735; 85014; 85018; 85025; 85610; 86850; 86900; 86920; 87077; 88305; 93005; 96372; 97116; 97161; 97167; 97530; 97535; 99285; C9113; G0378; J1815; J1940; J3475; J7030; J7512; P9016

== ENCOUNTER 2021-08-10 18:24 | Emergency (ER) | payer MEDICARE, SELFPAY ==
[2021-08-10] VITALS (11 sets, daily range): BP systolic 93–119; BP diastolic 50–67; PULSE 52–59; RESP 14–28; TEMP 37.1; O2SAT 97–100; BMI 36.6
--- NOTE | 2021-08-10 18:29 | XRR_ITS ---
PROCEDURE INFORMATION: Exam: XR Chest Exam date and time: 08/10/2021 6:29 PM Age: 70 years old Clinical indication: Other: Hypotention; Additional info: AMS TECHNIQUE: Imaging protocol: XR of the chest. Views: 1 view. COMPARISON: CR (CHEST, ) 06/30/2021 4:48 AM FINDINGS: Lungs: Unremarkable. No consolidation. Pleural spaces: Unremarkable. No pleural effusion. No pneumothorax. Heart/Mediastinum: Cardiomegaly. Bones/joints: Unremarkable. XR/XR chest 1V portable [id number] IMPRESSION: Cardiomegaly, negative for infiltrate
--- NOTE | 2021-08-10 18:30 | ECG_ITS ---
[facility] Test Date: 2021-08-10 Pat Name: Myesha Parker Department: Room: Gender: Female [place] [employer]: : 1950 Requested By: Karma Garner Order Number: [id number] Wilbur MD: Keisha Coronel M.D. Measurements Intervals [place] Rate: 52 P: LA: QRS: -58 QRSD: 153 T: 82 QT: 470 QTc: 438 Interpretive Statements Sinus bradycardia with a first-degree AV block. Interpolated PVCs RIGHT BUNDLE BRANCH BLOCK [120+ ms QRS DURATION, UPRIGHT V1, 40+ ms S IN I/aVL/V4/V5/V6] LEFT ANTERIOR FASCICULAR BLOCK [QRS AXIS <= -45, QR IN I, RS IN II] POSSIBLE LEFT VENTRICULAR HYPERTROPHY [VOLTAGE CRITERIA PLUS LAE OR QRS WIDENING] POSSIBLE SEPTAL MYOCARDIAL INFARCTION , OF INDETERMINATE AGE [30 ms Q WAVE IN V1/V2] Compared to ECG 08/02/2021 01:38:16 Myocardial infarct finding now present Sinus bradycardia no longer present First degree AV block no longer present Electronically Signed On 08-10-2021 22:06:07 SURVEY RESEARCH ANALYST by Keisha Coronel M.D. [email or web address]
[2021-08-10 18:45] LABS: Basophils # 0.1 10^3/uL (0.0-0.1); Basophils % 1.1 %; Eosinophils # 0.1 10^3/uL (0.0-0.8); Eosinophils % 1.3 %; Hematocrit 29.9 % (37.0-47.0); Hemoglobin 9.4 g/dL (11.5-15.3); Lymphocytes # 1.1 10^3/uL (0.8-4.8); Lymphocytes % 19.3 %; Mean Corpuscular HGB Conc 31.4 g/dL (30.0-36.0); Mean Corpuscular Hemoglobin 31.4 pg (28.0-34.0); Mean Platelet Volume 10.1 fL (7.4-10.4); Monocytes # 0.5 10^3/uL (0.2-0.9); Monocytes % 9.4 %; Neutrophils # 3.79 10^3/uL (1.8-7.7); Neutrophils % 68.2 %; Nucleated Red Blood Cells % 0 %; Platelet Count 201 10^3/cmm (130-400); Red Blood Count 2.99 10^6/uL (4.1-5.3); Red Cell Distribution Width 14.6 % (12.1-15.1); White Blood Count 5.6 10^3/uL (4.0-10.0)
[2021-08-10 19:00] LABS: Bilirubin Urine 1+ (Negative); Glucose Urine UA Trace (Normal); Ketones Urine 1+ (Negative); Nitrate Urine Negative (Negative); Protein Urine 1+ (Negative); Urine Appearance Hazy (CLEAR); Urine Color Yellow (Yellow); Urobilinogen Urine 1 mg/dL (Negative); pH Urine 5 (5-7)
[2021-08-10 19:01] LABS: Add Urine Microscopic? YES; Leukocyte Esterase Urine 2+ (Negative)
--- NOTE | 2021-08-10 19:01 | ED_ITS ---
HPI - Weakness General: Chief complaint: Weakness Stated complaint: LETHARGIC, HYPOTENSION Time Seen by Provider: 08/10/21 18:25 Source: patient and EMS Mode of arrival: EMS Limitations: no limitations History of Present Illness: HPI Narrative: 70-year-old female who is very well-known to the ER with multiple visits for weakness and falls patient actually was just discharged from the hospital yesterday. She states that she had taken hydrocodone and became lethargic called EMS when they arrived she was lethargic hypotensive. Blood pressure here is improved is currently 100 she states she feels more awake she is able answer my questions appropriately currently but still has some slight lethargy she states she only took 1 hydrocodone denies any fever denies any vomiting denies any diarrhea denies any worst improving factors. Associated symptoms: Denies chest pain, chills, dysuria, easy bruising, fev er(s), nausea or vomiting Review of Systems Const: Denies: fever(s), chills, body aches or change in appetite Eyes: Denies: blurry vision or eye discomfort ENMT: Denies: throat pain or dental pain Card: Denies: chest pain Resp: Denies: dyspnea GI: Denies: abdominal pain, nausea, vomiting or diarrhea : Denies: dysuria Musc: Denies: neck pain or back pain Skin/Breast: Denies: rash Neuro: Reports: weakness in extremities Psych: Denies: depression [place]/Lymph: Denies: easy bruising All/Imm: Denies: urticaria PFSH ED PFSH: Medical History (Updated 08/10/21 @ 20:50 by Karma Garner MD) Anxiety and depression CHF exacerbation Chronic knee pain Chronic low back pain COPD (chronic obstructive pulmonary disease) Oxygen dependent, 2 L at baseline Coronary artery disease COVID-14 August 2020 Duodenal ulcer due to bacteria Fibromyalgia High risk medication use Hyperlipidemia Hypertension Hypothyroidism Immunization counseling Inflammatory arthritis Intermittent atrial fibrillation Because the patient history of frequent fall she was thought to be high risk for bleeding complications. So she is taking only the aspirin at this time. SHE HAS EASY BRUISING WELL Left renal mass Liver cirrhosis Low back pain of over 3 months duration Lung nodule Narrow complex tachycardia Osteoarthritis of knees, bilateral Poorly controlled diabetes mellitus Psychiatric care Recurrent UTI Seronegative rheumatoid arthritis of both hands Unstable angina Urgency incontinence UTI (urinary tract infection) Surgical History History of cardiac cath History of cholecystectomy History of hysterectomy History of knee replacement History of thyroid surgery Family History Other CAD (coronary artery disease) Cancer Denies family history of Anesthesia complication Bleeding disorder Social History Smoking and tobacco status: former smoker Quit status (tobacco): has quit using tobacco Year quit tobacco: 2005 Second hand smoke exposure: No Alcohol intake: never Adopted: No Caregiver/support person: No Lives independently: No Household members: spouse Marital status: Current occupational status: retired History of recent travel: No Current gender identity: Female Female Reproductive History: Date of last menstrual period: 11/18/20 Physical Exam Const: COMMON NORMALS: no acute distress, patient oriented x3 and healthy appearing HENMT: COMMON NORMALS: normocephalic and atraumatic HEAD & SCALP: normocephalic and atraumatic Eye: COMMON NORMALS: Equal, round and reactive pupils present and EOMs intact bilaterally PUPIL: Yes Equal, round and reactive pupils present Neck/C-Spine: COMMON NORMALS: full ROM and supple Chest: COMMONS NORMALS: normal inspection of the chest and normal palpation of entire chest wall Resp: COMMON NORMALS: normal respiratory effort, No retractions, No use of accessory muscles and clear to auscultation bilaterally AUSCULTATION: clear to auscultation bilaterally Cardio: COMMON NORMALS: regular rate, regular rhythm and No murmurs present (Cardio) RATE: regular rate RHYTHM: regular rhythm GI: COMMON NORMALS: Normal to inspection, nondistended, normoactive bowel sounds present, Soft to palpation, non-tender and no masses PALPATION: Yes Soft to palpation Extremity: COMMON NORMALS: normal to inspection and full ROM Neuro: COMMON NORMALS: patient oriented x3, moves all extremities and no focal motor deficits Psych: COMMON NORMALS: mental status grossly normal, Normal thought process present and cooperative THOUGHT PROCESS: Normal thought process present Skin: COMMON NORMALS: no rashes or lesions noted and no wounds GENERAL SKIN EXAM: no rashes or lesions noted Course Vital Signs: Vital signs: Vital Signs Temperature 98.7 F 08/10/21 18:25 Pulse Rate 52 L 08/10/21 20:30 Respiratory Rate 14 08/10/21 20:30 Blood Pressure 119/65 08/10/21 20:30 Pulse Oximetry 100 08/10/21 20:30 MDM - Weakness MDM Narrative: Medical decision making narrative: Maribell presents here with weakness has had multiple. Like this over the past year patient's blood work here is all normal she does have an acute cystitis. We will start her on Keflex she is to have her pain meds as I believe is likely causing some of this. She is to follow-up with PCP and return if worsening. Lab Data: Labs: Lab Results 08/10/21 08/10/21 08/10/21 18:25 18:25 18:25 WBC 5.6 10^3/uL 10^3/ uL (4.0-10.0) RBC 2.99 10^6/uL L 10 ^6/uL (4.1-5.3) Hgb 9.4 g/dL L g/dL (11.5-15.3) Hct 29.9 % L % (37.0-47.0) MCV 100.0 fl H fl (81-99) MCH 31.4 pg pg (28.0-34.0) MCHC 31.4 g/dL g/dL (30.0-36.0) RDW 14.6 % % (12.1-15.1) Plt Count 201 10^3/cmm 10^3 /cmm (130-400) MPV 10.1 fL fL (7.4-10.4) Neut % (Auto) 68.2 % % Lymph % (Auto) 19.3 % % [place] % (Auto) 9.4 % % Eos % (Auto) 1.3 % % Baso % (Auto) 1.1 % % Neut # (Auto) 3.79 10^3/uL 10^3 /uL (1.8-7.7) Lymph # (Auto) 1.1 10^3/uL 10^3/ uL (0.8-4.8) [place] # (Auto) 0.5 10^3/uL 10^3/ uL (0.2-0.9) Eos # (Auto) 0.1 10^3/uL 10^3/ uL (0.0-0.8) Baso # (Auto) 0.1 10^3/uL 10^3/ uL (0.0-0.1) Nucleated RBC % (a uto) 0 % % Nucleated RBCs # 0.0 /100WBC /100W BC PT 13.20 SECONDS SEC ONDS (12.1-14.9) INR 0.97 (0.8-1.2) Sodium 140 mmol/L mmol/L (136-145) Potassium 4.7 mmol/L mmol/L (3.5-5.1) Chloride 97 mmol/L L mmol/ L (98-107) Carbon Dioxide 26 mmol/L mmol/L (22-29) Anion Gap 21.7 H (5-19) BUN 27 mg/dL H mg/dL (8-23) Creatinine 1.4 mg/dL H mg/dL (0.5-0.9) GFR Calculation Not Reportable Glucose 367 mg/dL H mg/dL (65-115) Calculated Osmolal ity 310 mOsm/kg H mOs m/kg (285-295) Lactic Acid Calcium 8.3 mg/dL L mg/dL (8.5-10.5) Total Bilirubin 0.2 mg/dL mg/dL (0.15-1.2) AST 61 U/L H U/L (0-32) ALT 40 U/L H U/L (0-33) Alkaline Phosphata se 130 IU/L H IU/L (35-105) Troponin T Baselin e Troponin T 120 Min mcgrath Delta Troponin T Total Protein 5.6 g/dL L g/dL (6.6-8.7) Albumin 3.5 g/dL g/dL (3.5-5.2) Globulin 2.1 g/dL g/dL (1.3-4.6) Urine Color Urine Appearance Urine pH Ur Specific Gravit y Urine Protein Urine Glucose (UA) Urine Ketones Urine Blood Urine Nitrate Urine Bilirubin Urine Urobilinogen Ur Leukocyte Dorota ase Urine RBC Urine WBC Ur Squamous Epith Cells Amorphous Sediment Urine Bacteria Urine Mucus 08/10/21 08/10/21 08/10/21 18:25 18:35 20:08 WBC RBC Hgb Hct MCV MCH MCHC RDW Plt Count MPV Neut % (Auto) Lymph % (Auto) [place] % (Auto) Eos % (Auto) Baso % (Auto) Neut # (Auto) Lymph # (Auto) [place] # (Auto) Eos # (Auto) Baso # (Auto) Nucleated RBC % (a uto) Nucleated RBCs # PT INR Sodium Potassium Chloride Carbon Dioxide Anion Gap BUN Creatinine GFR Calculation Glucose Calculated Osmolal ity Lactic Acid Calcium Total Bilirubin AST ALT Alkaline Phosphata se Troponin T Baselin e 28 ng/L H ng/L (0-10) Troponin T 120 Min mcgrath 24.24 ng/L H ng/L (0-10) Delta Troponin T -3.76 ABS# L ABS# (0-10) Total Protein Albumin Globulin Urine Color Yellow (Yellow) Urine Appearance Hazy A (CLEAR) Urine pH 5 (5-7) Ur Specific Gravit y 1.020 (1.005-1.030) Urine Protein 1+ H (Negative) Urine Glucose (UA) Trace H (Normal) Urine Ketones 1+ H (Negative) Urine Blood 2+ H (Negative) Urine Nitrate Negative (Negative) Urine Bilirubin 1+ H (Negative) Urine Urobilinogen 1 mg/dL H mg/dL (Negative) Ur Leukocyte Dorota ase 2+ H (Negative) Urine RBC 5-10 /hpf H /hpf (0-2) Urine WBC Too numerous to c nt /hpf H /hpf (0-5) Ur Squamous Epith Cells 5-10 /hpf H /hpf (0-5) Amorphous Sediment Trace /hpf /hpf Urine Bacteria 2+ /hpf H /hpf (NONE) Urine Mucus Trace /hpf /hpf 08/10/21 20:08 WBC RBC Hgb Hct MCV MCH MCHC RDW Plt Count MPV Neut % (Auto) Lymph % (Auto) [place] % (Auto) Eos % (Auto) Baso % (Auto) Neut # (Auto) Lymph # (Auto) [place] # (Auto) Eos # (Auto) Baso # (Auto) Nucleated RBC % (a uto) Nucleated RBCs # PT INR Sodium Potassium Chloride Carbon Dioxide Anion Gap BUN Creatinine GFR Calculation Glucose Calculated Osmolal ity Lactic Acid 1.5 mmol/L mmol/L (0.5-2.2) Calcium Total Bilirubin AST ALT Alkaline Phosphata se Troponin T Baselin e Troponin T 120 Min mcgrath Delta Troponin T Total Protein Albumin Globulin Urine Color Urine Appearance Urine pH Ur Specific Gravit y Urine Protein Urine Glucose (UA) Urine Ketones Urine Blood Urine Nitrate Urine Bilirubin Urine Urobilinogen Ur Leukocyte Dorota ase Urine RBC Urine WBC Ur Squamous Epith Cells Amorphous Sediment Urine Bacteria Urine Mucus Imaging Data^: CT Head: Attestation: I personally reviewed and interpreted this imaging study as follows: Radiologist's impression: [facility] [address] [address] Scan Report Signed Patient: Myesha Parker Unit #: [id number] : 1950 Age/Sex: 70 / F ADM Date: 08/10/21 Loc: ER Room/Bed: Attending Dr: Ordering Provider/Ordering MD: Karma Garner MD Date of Service: 08/10/21 Procedure(s): CT head wo con* [id number] Accession Number(s): [id number] Report Number: [id number] PROCEDURE INFORMATION: Exam: CT Head Without Contrast Exam date and time: 08/10/2021 7:06 PM Age: 70 years old Clinical indication: Altered mental status/memory loss; Additional info: Confusion TECHNIQUE: Imaging protocol: Computed tomography of the head without contrast. Radiation optimization: All CT scans at this facility use at least one of these dose optimization techniques: automated exposure control; mA and/or kV adjustment per patient size (includes targeted exams where dose is matched to clinical indication); or iterative reconstruction. COMPARISON: CT head wo con* [id number] 08/02/2021 1:50 AM RADIATION DOSE METRICS: Total DLP (mGy-cm): 787.38 FINDINGS: Brain: Mild diffuse white matter disease likely reflecting chronic microvascular ischemic changes. Cerebral ventricles: Mild bilateral ventricular prominence, similar to prior exam may reflect a degree of chronic communicating hydrocephalus. Paranasal sinuses: Visualized sinuses are unremarkable. No fluid levels. Mastoid air cells: Visualized mastoid air cells are well aerated. Bones/joints: Unremarkable. No acute fracture. Soft tissues: Unremarkable. CT/CT head wo con* [id number] IMPRESSION: 1. Negative for intracranial hemorrhage or mass effect. 2. Mild bilateral ventricular prominence, similar to prior exam may reflect a degree of chronic communicating hydrocephalus. Dictated By: Kirk Hernandez MD Signed By: Kirk Hernandez MD Signed Date/Time: 08/10/211949 DD/ 05 CXR: Radiologist's impression: [facility] [address] [facility] [address] XRay Report Signed Patient: Myesha Parker Unit #: [id number] : 1950 Age/Sex: 70 / F ADM Date: 08/10/21 Loc: ER Room/Bed: Attending Dr: Ordering Provider/Ordering MD: Karma Garner MD Date of Service: 08/10/21 Procedure(s): XR chest 1V portable [id number] Accession Number(s): [id number] Report Number: [id number] PROCEDURE INFORMATION: Exam: XR Chest Exam date and time: 08/10/2021 6:29 PM Age: 70 years old Clinical indication: Other: Hypotention; Additional info: AMS TECHNIQUE: Imaging protocol: XR of the chest. Views: 1 view. COMPARISON: CR (CHEST, ) 06/30/2021 4:48 AM FINDINGS: Lungs: Unremarkable. No consolidation. Pleural spaces: Unremarkable. No pleural effusion. No pneumothorax. Heart/Mediastinum: Cardiomegaly. Bones/joints: Unremarkable. XR/XR chest 1V portable [id number] IMPRESSION: Cardiomegaly, negative for infiltrate Dictated By: Kirk Hernandez MD Signed By: Kirk Hernandez MD Signed Date/Time: 08/10/211947 DD/ 28 EKG Data^: EKG 1: Attestation: I personally reviewed and interpreted this EKG as follows: EKG interpretation date: 08/10/21 EKG interpretation time: 18:37 Interpretation: nsr hr [address] elevation qrs 153 qtc 449 Discharge Plan Discharge Patient Disposition: Home Clinical Impression: Weakness Acute cystitis Qualifiers: Hematuria presence: without hematuria Qualified Code(s): N30.00 - Acute cystitis without hematuria Condition: Stable Prescriptions: New cephalexin 500 mg capsule 500 mg PO TID 7 Days Qty: 21 RF: 0 No Action Humira Pen 40 mg/0.8 mL pen injector kit 40 mg SUBCUT Q14D Qty: 2 RF: 3 Hold Instructions: Resume on 08/02/21. methotrexate sodium 2.5 mg tablet 7.5 mg PO Q7D Qty: 15 RF: 3 prednisone 2.5 mg tablet 2.5 mg PO DAILY Qty: 90 RF: 1 sulfasalazine 500 mg tablet 500 mg PO BID@08,17 Qty: 60 RF: 3 folic acid 1 mg tablet 1 mg PO DAILY@08 Qty: 90 RF: 1 nitroglycerin [Nitrostat] 0.4 mg tablet, sublingual 0.4 mg SUBLINGUAL Q5M PRN (Reason: Chest Pain) Qty: 30 RF: 3 duloxetine [Cymbalta] 30 mg capsule,delayed release(DR/EC) 30 mg PO DAILY@08 Qty: 30 RF: 2 hydrocodone-acetaminophen 7.5-325 mg tablet 1 tab PO TID PRN (Reason: pain) 30 Days Qty: 90 RF: 0 tizanidine 4 mg tablet 4 mg PO TID PRN (Reason: muscle spasticity) 30 Days Qty: 90 RF: 1 levothyroxine [Euthyrox] 150 mcg tablet 150 mcg PO QAM RF: 0 calcium carbonate [Calcium 600] 600 mg calcium (1,500 mg) tablet 600 mg PO DAILY RF: 0 methylsulfonylmethane [MSM] 1,000 mg tablet 1,000 mg PO BID RF: 0 atorvastatin [Lipitor] 40 mg Tablet 40 mg PO BEDTIME RF: 0 Hold Instructions: Resume on 08/22/21. acetaminophen [Arthritis Pain Reliever] 650 mg Tablet Extended Release 650 mg PO Q4H PRN (Reason: Pain) RF: 0 cholecalciferol (vitamin D3) [Vitamin D3] 25 mcg (1,000 unit) Tablet 2,000 unit PO DAILY@08 RF: 0 albuterol sulfate 2.5 mg /3 mL (0.083 %) Solution For Nebulization 2.5 mg inhalation TID PRN (Reason: Shortness Of Breath) RF: 0 Novolin 70/30 U-100 Insulin 100 unit/mL (70-30) suspension See Rx Instructions .ROUTE .COMPLEX RF: 0 albuterol sulfate 90 mcg/actuation Hfa Aerosol Inhaler 2 puff INHALATION Q6H PRN (Reason: Shortness Of Breath) RF: 0 docusate sodium [Stool Softener] 250 mg Capsule 250 mg PO BID PRN (Reason: Constipation) RF: 0 cyanocobalamin (vitamin B-12) [Vitamin B-12] 500 mcg Tablet 500 mcg PO DAILY RF: 0 chlorpheniramine maleate [ChlorTabs] 4 mg Tablet See Rx Instructions .ROUTE .COMPLEX RF: 0 prednisolone acetate 1 % Drops,Suspension 1 drp ophthalmic (eye) PRN RF: 0 diphenhydramine HCl [Benadryl] 25 mg Capsule See Rx Instructions .ROUTE .COMPLEX RF: 0 diltiazem HCl 120 mg Capsule,Extended Release 24hr 120 mg PO DAILY 30 Days Qty: 30 RF: 3 pyridostigmine bromide 60 mg Tablet 30 mg PO BID Qty: 60 RF: 4 metoprolol tartrate 50 mg Tablet 100 mg PO BID@0900,2100 Qty: 60 RF: 3 furosemide 40 mg tablet 20 mg PO Q48H Qty: 90 RF: 3 duloxetine 60 mg capsule,delayed release(DR/EC) 60 mg PO DAILY@08 RF: 0 clarithromycin 500 mg Tablet 500 mg PO BID 14 Days Qty: 28 RF: 0 metronidazole 500 mg Tablet 500 mg PO TID 14 Days Qty: 42 RF: 0 pantoprazole 40 mg Tablet,Delayed Release (Dr/Ec) 40 mg PO BID 30 Days Qty: 60 RF: 0 lisinopril 20 mg Tablet 10 mg PO DAILY Qty: 30 RF: 0 potassium chloride 20 mEq tablet extended release 20 meq PO DAILY Qty: 0 RF: 0 insulin lispro [Admelog U-100 Insulin lispro] 100 unit/mL Solution See Rx Instructions .ROUTE .COMPLEX RF: 0 digoxin 125 mcg (0.125 mg) tablet See Rx Instructions .ROUTE .COMPLEX RF: 0 ferrous gluconate 324 mg (37.5 mg iron) tablet See Rx Instructions .ROUTE .COMPLEX RF: 0 magnesium L-lactate 84 mg tablet extended release 84 mg PO BID RF: 0 Discharge Orders: Discharge ED (Routine); Ordered 08/10/21 Ordered By: Karma Garner Referrals: Ami Perez, [Primary Care Provider] - 1-3 days Discharge Diet: Advance as tolerated Discharge Activity: Resume usual activity Patient Instructions: Urinary Tract Infection in Women (ED) Coding Level of Care Code ED District Resource Officer for Sangg Fwd Exam Comprehensive
[2021-08-10 19:02] LABS: Bacteria Urine 2+ /hpf; Mucus Urine TRACE /hpf; WBC Urine TOO NUMEROUS TO CNT /hpf (0-5)
[2021-08-10 19:03] LABS: Add Urine Culture? Yes; Amorphous Sediment Urine TRACE /hpf; Blood Urine 2+ (Negative)
--- NOTE | 2021-08-10 19:06 | CTR_ITS ---
PROCEDURE INFORMATION: Exam: CT Head Without Contrast Exam date and time: 08/10/2021 7:06 PM Age: 70 years old Clinical indication: Altered mental status/memory loss; Additional info: Confusion TECHNIQUE: Imaging protocol: Computed tomography of the head without contrast. Radiation optimization: All CT scans at this facility use at least one of these dose optimization techniques: automated exposure control; mA and/or kV adjustment per patient size (includes targeted exams where dose is matched to clinical indication); or iterative reconstruction. COMPARISON: CT head wo con* [id number] 08/02/2021 1:50 AM RADIATION DOSE METRICS: Total DLP (mGy-cm): 787.38 FINDINGS: Brain: Mild diffuse white matter disease likely reflecting chronic microvascular ischemic changes. Cerebral ventricles: Mild bilateral ventricular prominence, similar to prior exam may reflect a degree of chronic communicating hydrocephalus. Paranasal sinuses: Visualized sinuses are unremarkable. No fluid levels. Mastoid air cells: Visualized mastoid air cells are well aerated. Bones/joints: Unremarkable. No acute fracture. Soft tissues: Unremarkable. CT/CT head wo con* [id number] IMPRESSION: 1. Negative for intracranial hemorrhage or mass effect. 2. Mild bilateral ventricular prominence, similar to prior exam may reflect a degree of chronic communicating hydrocephalus.
[2021-08-10 19:09] LABS: Troponin(5th) Baseline 28 ng/L (0-10)
[2021-08-10 19:12] LABS: Alanine Aminotransferase 40 U/L (0-33); Albumin Level 3.5 g/dL (3.5-5.2); Alkaline Phosphatase 130 IU/L (35-105); Anion Gap 21.7 (5-19); Aspartate Amino Transferase 61 U/L (0-32); Blood Urea Nitrogen 27 mg/dL (8-23); Calcium 8.3 mg/dL (8.5-10.5); Carbon Dioxide 26 mmol/L (22-29); Chloride 97 mmol/L (98-107); Creatinine Clr Calc Pharmacy 42.4991; Globulin 2.1 g/dL (1.3-4.6); Glucose 367 mg/dL (65-115); Osmolality Calculated 310 mOsm/kg (285-295); Potassium 4.7 mmol/L (3.5-5.1); Sodium 140 mmol/L (136-145); Total Bilirubin 0.2 mg/dL (0.15-1.2); Total Protein 5.6 g/dL (6.6-8.7)
[2021-08-10 19:36] LABS: INR 0.97 (0.8-1.2)
[2021-08-10] MEDS: sodium chloride 0.9% 1,000 ML 999 ML IV (19:53)
[2021-08-10 20:38] LABS: Troponin 5 2HR 24.24 ng/L (0-10)
[2021-08-10 20:41] LABS: Lactic Sepsis W/Reflex 1.5 mmol/L (0.5-2.2); Troponin 5 2HR Delta -3.76 ABS# (0-10)
== END 2021-08-10 21:08 | disposition home or self-care (01) ==
PROVIDERS: Emergency Provider Emergency Medicine; PCP Internal Medicine
DX: R53.1 Weakness (principal); N30.00 Acute cystitis without hematuria; Z79.4 Long term (current) use of insulin; I11.0 Hypertensive heart disease with heart failure; I50.9 Heart failure, unspecified; J44.9 Chronic obstructive pulmonary disease, unspecified; I25.10 Atherosclerotic heart disease of native coronary artery without angina pectoris; E78.5 Hyperlipidemia, unspecified; E11.9 Type 2 diabetes mellitus without complications; Z87.440 Personal history of urinary (tract) infections; Z87.891 Personal history of nicotine dependence
CPT/HCPCS: 70450; 71045; 80053; 81001; 83605; 84484; 85025; 85610; 87040; 87077; 87086; 87186; 93005; 96360; 99284; J7030

== ENCOUNTER 2021-08-22 10:51 | Emergency (ER) | payer MEDICARE, SELFPAY ==
--- NOTE | 2021-08-22 11:10 | XR_ITS ---
WS: [id number] Portable AP upright chest, 08/22/2021 Clinical Data: chest pain Comparison: Portable chest, 08/10/2021 Findings: No nodules, masses or effusions are seen. The heart is enlarged. The aortic arch and descen ding thoracic aorta show calcification and tortuosity. No pneumonia or pneumothorax is seen. The pulm onary vascularity is normal. XR/XR chest 1V portable [id number] Impression: Cardiomegaly and atherosclerosis.
[2021-08-22 11:23] VITALS: BP 99/61; PULSE 64; RESP 18; TEMP 36.9; O2SAT 96; BMI 36.6
[2021-08-22 12:50] LABS: Basophils % 0.6 %; Eosinophils # 0.1 10^3/uL (0.0-0.8); Eosinophils % 0.9 %; Hematocrit 30.7 % (37.0-47.0); Hemoglobin 9.6 g/dL (11.5-15.3); Lymphocytes # 0.9 10^3/uL (0.8-4.8); Lymphocytes % 13.3 %; Mean Corpuscular HGB Conc 31.3 g/dL (30.0-36.0); Mean Corpuscular Hemoglobin 31.5 pg (28.0-34.0); Mean Corpuscular Volume 100.7 fl (81-99); Mean Platelet Volume 9.6 fL (7.4-10.4); Monocytes # 0.5 10^3/uL (0.2-0.9); Monocytes % 7.6 %; Neutrophils # 5.27 10^3/uL (1.8-7.7); Nucleated Red Blood Cells % 0 %; Platelet Count 219 10^3/cmm (130-400); Red Blood Count 3.05 10^6/uL (4.1-5.3); White Blood Count 6.8 10^3/uL (4.0-10.0)
--- NOTE | 2021-08-22 13:10 | ECG_ITS ---
[facility] Test Date: 2021-08-22 Pat Name: Myesha Parker Department: Room: Gender: Female Track Announcer: : 1950 Requested By: Christiana Burns Order Number: [id number] Wilbur MD: Lucia Oakley M.D. Measurements Intervals [place] Rate: 63 P: -46 [place]: 197 QRS: -59 QRSD: 151 T: 26 QT: 459 QTc: 470 Interpretive Statements SINUS RHYTHM RIGHT BUNDLE BRANCH BLOCK [120+ ms QRS DURATION, UPRIGHT V1, 40+ ms S IN I/aVL/V4/V5/V6] LEFT ANTERIOR FASCICULAR BLOCK [QRS AXIS <= -45, QR IN I, RS IN II] MODERATE VOLTAGE CRITERIA FOR LVH, CONSIDER NORMAL VARIANT [MEETS CRITERIA IN ONE OF: R(aVL), S(V1), R(V5), R(V5/V6)+S(V1)] POSSIBLE SEPTAL MYOCARDIAL INFARCTION , PROBABLY OLD [30 ms Q WAVE IN V1/V2] Compared to ECG 08/10/2021 18:37:38 Sinus bradycardia no longer present Ventricular premature complex(es) no longer present Myocardial infarct finding still present Electronically Signed On 08-22-2021 22:33:49 DOBIE MAN by Lucia Oakley M.D. [id number]
[2021-08-22 13:16] LABS: Troponin(5th) Baseline 17 ng/L (0-10)
[2021-08-22 13:26] LABS: Digoxin < 0.3 ng/mL (0.6-1.2)
[2021-08-22 13:27] LABS: Alanine Aminotransferase 21 U/L (0-33); Albumin Level 3.3 g/dL (3.5-5.2); Alkaline Phosphatase 129 IU/L (35-105); Anion Gap 14.9 (5-19); Aspartate Amino Transferase 29 U/L (0-32); Blood Urea Nitrogen 20 mg/dL (8-23); Calcium 8.4 mg/dL (8.5-10.5); Carbon Dioxide 30 mmol/L (22-29); Chloride 101 mmol/L (98-107); Globulin 2.5 g/dL (1.3-4.6); Glucose 270 mg/dL (65-115); NT Pro B Type Natriuretic Pept 1219 pg/mL (0-125); Osmolality Calculated 304 mOsm/kg (285-295); Potassium 4.9 mmol/L (3.5-5.1); Sodium 141 mmol/L (136-145); Thyroid Stimulating Hormone 2.15 uIU/mL (0.27-4.20); Total Bilirubin 0.4 mg/dL (0.15-1.2); Total Protein 5.8 g/dL (6.6-8.7)
[2021-08-22 15:19] LABS: Troponin 5 2HR 18.31 ng/L (0-10); Troponin 5 2HR Delta 1.31 ABS# (0-10)
== END 2021-08-22 17:28 | disposition left against medical advice (07) ==
LOC: ER 10:54
PROVIDERS: Physician Assistant; Emergency Provider Family Medicine; PCP Family Medicine
DX: Z53.21 Procedure and treatment not carried out due to patient leaving prior to being seen by health care provider (principal)
CPT/HCPCS: 71045; 80053; 80162; 83880; 84443; 84484; 85025; 93005

== ENCOUNTER → 2021-09-01 08:10 | Outpatient (BNVA) | payer MEDICARE, SELFPAY | PROVIDERS: PCP Family Medicine; Visit Provider Nurse Practitioner Psychiatric/Mental Health | DX: F43.12 Post-traumatic stress disorder, chronic (principal); F33.41 Major depressive disorder, recurrent, in partial remission; G89.29 Other chronic pain; M25.569 Pain in unspecified knee; Z79.899 Other long term (current) drug therapy | CPT/HCPCS: 99213 ==

== ENCOUNTER 2021-09-13 14:05 | Emergency (ER) | payer MEDICARE, SELFPAY ==
--- NOTE | 2021-09-13 | CT_ITS ---
WS: [id number] CT HEAD NONCONTRAST HISTORY: POSSIBLE STROKE TECHNIQUE: Contiguous axial imaging performed through the brain in 2.5 mm imaging. Bone and soft tiss ue windows. Sagittal and coronal reformats reviewed. All CT scans at [facility] use at least one of these dose optimization techniques: automated exposure control; mA and/or kV adjustment per pa tient size (includes targeted exams where dose is matched to clinical indication); or iterative recon struction. DLP: 1729.79 mGy-cm. COMPARISON: 08/10/2021 No acute intracranial hemorrhage, midline shift or mass effect. Mild atrophy and mild chronic ischemic disease. No area of sulcal effacement. Ventricles: Ventricles are mildly dilated on the basis of atrophy. Paranasal sinuses: As visualized are clear. Mastoid air cells: Well pneumatized. Calvarium and scalp: Skull is intact with no soft tissue edema or swelling. CT/CT head wo con* [id number] IMPRESSION: 1. Study is limited by motion artifact. 2. No acute intracranial hemorrhage or edema identified. 3. Mild atrophy and chronic ischemic disease. No progression since the prior s tudy.
[2021-09-13 14:13] VITALS: BP 173/80; PULSE 62; RESP 14; TEMP 36.2; O2SAT 97
--- NOTE | 2021-09-13 14:21 | XR_ITS ---
WS: [email or web address] Exam: XR chest 1V portable [id number] Date/Time of Exam: 09/13/2021 2:28 PM Reason For Exam: ams Comparison 08/22/2021. The lungs are clear and fully expanded. Mild cardiac enlargement unchanged. No pleural effusions or p neumothorax. Regional bony elements are intact. The mediastinum is prominent most likely due to rotat ion of the chest and AP technique. XR/XR chest 1V portable [id number] IMPRESSION: 1. Mild cardiac enlargement unchanged. No acute cardiopulmonary process noted.
--- NOTE | 2021-09-13 14:21 | ECG_ITS ---
[facility] Test Date: 2021-09-13 Pat Name: Myesha Parker Department: Room: Gender: Female Source Water Protection Specialist: : 1950 Requested By: Matyt Collins Order Number: [id number] Wilbur MD: Keisha Coronel M.D. Measurements Intervals [place] Rate: 61 P: -14 NM: 223 QRS: -60 QRSD: 160 T: 26 QT: 452 QTc: 458 Interpretive Statements SINUS RHYTHM WITH FIRST DEGREE AV BLOCK WITH OCCASIONAL VENTRICULAR PREMATURE COMPLEXES RIGHT BUNDLE BRANCH BLOCK [120+ ms QRS DURATION, UPRIGHT V1, 40+ ms S IN I/aVL/V4/V5/V6] LEFT ANTERIOR FASCICULAR BLOCK [QRS AXIS <= -45, QR IN I, RS IN II] POSSIBLE LEFT VENTRICULAR HYPERTROPHY [VOLTAGE CRITERIA PLUS LAE OR QRS WIDENING] POSSIBLE SEPTAL MYOCARDIAL INFARCTION , OF INDETERMINATE AGE [30 ms Q WAVE IN V1/V2] Compared to ECG 08/22/2021 11:32:12 Ventricular premature complex(es) now present First degree AV block now present Myocardial infarct finding still present Electronically Signed On 09-14-2021 13:56:35 EARLY CHILDHOOD EDUCATION WORKER by Keisha Coronel M.D. [id number]
[2021-09-13 14:57] LABS: Basophils # 0.1 10^3/uL (0.0-0.1); Basophils % 0.8 %; Eosinophils # 0.1 10^3/uL (0.0-0.8); Eosinophils % 1.1 %; Hematocrit 34.1 % (37.0-47.0); Hemoglobin 10.9 g/dL (11.5-15.3); Lymphocytes # 0.9 10^3/uL (0.8-4.8); Lymphocytes % 15.2 %; Mean Corpuscular Hemoglobin 31.7 pg (28.0-34.0); Mean Corpuscular Volume 99.1 fl (81-99); Mean Platelet Volume 9.4 fL (7.4-10.4); Monocytes # 0.5 10^3/uL (0.2-0.9); Monocytes % 7.5 %; Neutrophils # 4.58 10^3/uL (1.8-7.7); Neutrophils % 75.1 %; Nucleated Red Blood Cells % 0 %; Platelet Count 170 10^3/cmm (130-400); Red Blood Count 3.44 10^6/uL (4.1-5.3); Red Cell Distribution Width 14.4 % (12.1-15.1); White Blood Count 6.1 10^3/uL (4.0-10.0)
[2021-09-13 15:10] LABS: INR 0.98 (0.8-1.2); Partial Thromboplastin Time 25.9 SECONDS (23.9-36.7)
[2021-09-13 15:17] LABS: Troponin(5th) Baseline 30 ng/L (0-10)
[2021-09-13 15:18] LABS: Alanine Aminotransferase 20 U/L (0-33); Albumin Level 3.7 g/dL (3.5-5.2); Alkaline Phosphatase 109 IU/L (35-105); Aspartate Amino Transferase 29 U/L (0-32); Blood Urea Nitrogen 21 mg/dL (8-23); Calcium 9.3 mg/dL (8.5-10.5); Carbon Dioxide 29 mmol/L (22-29); Chloride 96 mmol/L (98-107); Globulin 2.9 g/dL (1.3-4.6); Glucose 213 mg/dL (65-115); Osmolality Calculated 293 mOsm/kg (285-295); Sodium 137 mmol/L (136-145); Total Bilirubin 0.3 mg/dL (0.15-1.2); Total Protein 6.6 g/dL (6.6-8.7)
[2021-09-13] MEDS: hyDRALAzine 20 mg/mL INJ 1 mL 10 MG IVP (15:35)
[2021-09-13] MEDS: amlodipine 10 mg Tablet PO (15:35)
--- NOTE | 2021-09-13 16:01 | W.ED.NEUROSD ---
HPI - Neuro Symptoms/Deficit General: Chief Complaint: Neuro Symptoms/Deficit Stated Complaint: STROKE LIKE SYMPTOMS Time Seen by Provider: 09/13/21 14:21 History of Present Illness: HPI Narrative: 70-year-old female with a history of prior CVA. She presents with confusion, language problems, and weakness, not necessarily localizing but started sometime after 1145 this morning. She had been to a doctor's appointment, and then out to eat with her , when her began to notice increasing trouble with slurring of speech, trouble speaking, and weakness. He was concerned about a stroke. She notes that the past couple of days, she felt pretty well for her. No increased need for oxygen, no cough, no vomiting. Last Observed Normal: 11:45 Timing confirmed by: spouse Location: speech, dysarthria and altered History of same: Yes (. Symptoms in the past) Quality: weak, intermittent and improving Relieving factors: time Exacerbating factors: none Context: gradual onset Associated symptoms: Reports weakness; Deny chest pain, cough, diaphoresis, fevers/chills, headache(s), anorexia, short of breath or syncope Treatments Prior to Arrival: none Review of Systems Const: Denies: diaphoresis Card: Denies: chest pain or syncope Resp: Denies: dyspnea GI: Denies: abdominal pain Neuro: Denies: headache(s) PFS ED PFSH: Medical History Anxiety and depression CHF exacerbation Chronic knee pain Chronic low back pain COPD (chronic obstructive pulmonary disease) Oxygen dependent, 2 L at baseline Coronary artery disease COVID-14 August 2020 Duodenal ulcer due to bacteria Fibromyalgia High risk medication use Hyperlipidemia Hypertension Hypothyroidism Immunization counseling Inflammatory arthritis Intermittent atrial fibrillation Because the patient history of frequent fall she was thought to be high risk for bleeding complications. So she is taking only the aspirin at this time. SHE HAS EASY BRUISING WELL Left renal mass Liver cirrhosis Low back pain of over 3 months duration Lung nodule Narrow complex tachycardia Osteoarthritis of knees, bilateral Poorly controlled diabetes mellitus Psychiatric care Recurrent UTI Seronegative rheumatoid arthritis of both hands Unstable angina Urgency incontinence UTI (urinary tract infection) Surgical History History of cardiac cath History of cholecystectomy History of hysterectomy History of knee replacement History of thyroid surgery Family History Other CAD (coronary artery disease) Cancer Denies family history of Anesthesia complication Bleeding disorder Social History Smoking and tobacco status: former smoker Quit status (tobacco): has quit using tobacco Year quit tobacco: 2005 Second hand smoke exposure: No Alcohol intake: never Adopted: No Caregiver/support person: No Lives independently: No Household members: spouse Marital status: Current occupational status: retired History of recent travel: No Current gender identity: Female Female Reproductive History: Date of last menstrual period: 11/18/20 NIH stroke score NIHSS: Level Of Consciousness - 1a: 0 Level Of Consciousness Questions - 1b: One Correct Level Of Consciousness Commands - 1c: Both Correct Best Gaze - 2: Normal Visual Morris - 3: No Visual Loss Facial Palsy - 4: Normal Motor Arm Right - 5: No Drift Motor Arm Left - 5: No Drift Motor Leg Right - 6: No Drift Motor Leg Left - 6: No Drift Limb Ataxia - 7: Absent Sensory - 8: Mild To Moderate Loss Best Language - 9: No Aphasia Dysarthia - 10: Mild/Moderate Dysarthia Extinction And Inattention - 11: 0 Score: Total Score: 3 Physical Exam Const: GENERAL APPEARANCE: cooperative, comfortable and frail appearing NUTRITIONAL APPEARANCE: obese HENMT: COMMON NORMALS: normocephalic HEAD & SCALP: normocephalic FACE & SINUS: normal facial exam Eye: COMMON NORMALS: Equal, round and reactive pupils present and EOMs intact bilaterally PUPIL: Yes Equal, round and reactive pupils present Chest: COMMONS NORMALS: normal inspection of the chest Resp: COMMON NORMALS: normal respiratory effort, No use of accessory muscles and clear to auscultation bilaterally AUSCULTATION: clear to auscultation bilaterally Cardio: COMMON NORMALS: regular rhythm RATE: bradycardic RHYTHM: regular rhythm GI: COMMON NORMALS: Normal to inspection, nondistended, normoactive bowel sounds present Neuro: BARNT COMA SCALE: document GCS findings Brant coma scale eye opening: Spontaneous Shepherd coma scale verbal response: Confused (very mildly) Shepherd coma scale motor response: Obey commands Shepherd coma scale total score: 14 Course Vital Signs: Vital signs: Vital Signs Temperature 97.2 F L 09/13/21 14:13 Pulse Rate 98 09/13/21 20:02 Respiratory Rate 16 01/18/22 20:02 Blood Pressure 194/94 09/13/21 20:02 Pulse Oximetry 98 09/13/21 20:02 MDM - Neuro Symptoms/Deficit MDM Narrative: Medical decision making narrative: 70-year-old female presents with a instance of confusion, and generalized weakness that seems to be improving. Initially she was bradycardic. Now she has been here long enough, and missed metoprolol, so she has been back in atrial fibrillation. She was hypertensive on arrival, which is improved after medication. EKG shows a sinus rhythm with first-degree AV block. There is no ST change. Delta troponin is negative at [address] showed no change in the brain since her last scan. With improvement in her blood pressure, and her mental state, and nonfocal neurological exam, she'll be allowed home Lab Data: Labs: Lab Results 09/13/21 09/13/21 09/13/21 14:50 14:50 14:50 WBC 6.1 10^3/uL 10^3/ uL (4.0-10.0) RBC 3.44 10^6/uL L 10 ^6/uL (4.1-5.3) Hgb 10.9 g/dL L g/dL (11.5-15.3) Hct 34.1 % L % (37.0-47.0) MCV 99.1 fl H fl (81-99) MCH 31.7 pg pg (28.0-34.0) MCHC 32.0 g/dL g/dL (30.0-36.0) RDW 14.4 % % (12.1-15.1) Plt Count 170 10^3/cmm 10^3 /cmm (130-400) MPV 9.4 fL fL (7.4-10.4) Neut % (Auto) 75.1 % % Lymph % (Auto) 15.2 % % [place] % (Auto) 7.5 % % Eos % (Auto) 1.1 % % Baso % (Auto) 0.8 % % Neut # (Auto) 4.58 10^3/uL 10^3 /uL (1.8-7.7) Lymph # (Auto) 0.9 10^3/uL 10^3/ uL (0.8-4.8) [place] # (Auto) 0.5 10^3/uL 10^3/ uL (0.2-0.9) Eos # (Auto) 0.1 10^3/uL 10^3/ uL (0.0-0.8) Baso # (Auto) 0.1 10^3/uL 10^3/ uL (0.0-0.1) Nucleated RBC % (a uto) 0 % % Nucleated RBCs # 0.0 /100WBC /100W BC PT 13.30 SECONDS SEC ONDS (12.1-14.9) INR 0.98 (0.8-1.2) APTT 25.9 SECONDS SECO NDS (23.9-36.7) Sodium 137 mmol/L mmol/L (136-145) Potassium 4.0 mmol/L mmol/L (3.5-5.1) Chloride 96 mmol/L L mmol/ L (98-107) Carbon Dioxide 29 mmol/L mmol/L (22-29) Anion Gap 16.0 (5-19) BUN 21 mg/dL mg/dL (8-23) Creatinine 1.1 mg/dL H mg/dL (0.5-0.9) GFR Calculation Not Reportable Glucose 213 mg/dL H mg/dL (65-115) Calculated Osmolal ity 293 mOsm/kg mOsm/ kg (285-295) Calcium 9.3 mg/dL mg/dL (8.5-10.5) Total Bilirubin 0.3 mg/dL mg/dL (0.15-1.2) AST 29 U/L U/L (0-32) ALT 20 U/L U/L (0-33) Alkaline Phosphata se 109 IU/L H IU/L (35-105) Troponin T Baselin e Troponin T 120 Min [place] Delta Troponin T Total Protein 6.6 g/dL g/dL (6.6-8.7) Albumin 3.7 g/dL g/dL (3.5-5.2) Globulin 2.9 g/dL g/dL (1.3-4.6) Urine Color Urine Appearance Urine pH Ur Specific Gravit y Urine Protein Urine Glucose (UA) Urine Ketones Urine Blood Urine Nitrate Urine Bilirubin Urine Urobilinogen Ur Leukocyte Dorota ase Urine RBC Urine WBC Ur Squamous Epith Cells Amorphous Sediment Urine Bacteria Urine Opiates Scre en Ur Barbiturates Sc reen Ur Phencyclidine S crn Ur Amphetamines Sc reen U Benzodiazepines Scrn Urine Cocaine Scre en U Marijuana (THC) Screen 09/13/21 09/13/21 09/13/21 14:50 16:30 16:30 WBC RBC Hgb Hct MCV MCH MCHC RDW Plt Count MPV Neut % (Auto) Lymph % (Auto) [place] % (Auto) Eos % (Auto) Baso % (Auto) Neut # (Auto) Lymph # (Auto) [place] # (Auto) Eos # (Auto) Baso # (Auto) Nucleated RBC % (a uto) Nucleated RBCs # PT INR APTT Sodium Potassium Chloride Carbon Dioxide Anion Gap BUN Creatinine GFR Calculation Glucose Calculated Osmolal ity Calcium Total Bilirubin AST ALT Alkaline Phosphata se Troponin T Baselin e 30 ng/L H ng/L (0-10) Troponin T 120 Min [place] Delta Troponin T Total Protein Albumin Globulin Urine Color Yellow (Yellow) Urine Appearance Clear (CLEAR) Urine pH 5 (5-7) Ur Specific Gravit y 1.015 (1.005-1.030) Urine Protein 1+ H (Negative) Urine Glucose (UA) 1+ H (Normal) Urine Ketones 1+ H (Negative) Urine Blood Neg (Negative) Urine Nitrate Negative (Negative) Urine Bilirubin 1+ H (Negative) Urine Urobilinogen Norm mg/dL mg/dL (Negative) Ur Leukocyte Dorota ase Trace H (Negative) Urine RBC None /hpf /hpf (0-2) Urine WBC 10-15 /hpf H /hpf (0-5) Ur Squamous Epith Cells 5-10 /hpf H /hpf (0-5) Amorphous Sediment Not Reportable Urine Bacteria None /hpf /hpf (NONE) Urine Opiates Scre en Positive ng/mL H ng/mL (Negative) Ur Barbiturates Sc reen Negative ng/mL ng /mL (Negative) Ur Phencyclidine S crn Negative ng/mL ng /mL (Negative) Ur Amphetamines Sc reen Negative ng/mL ng /mL (Negative) U Benzodiazepines Scrn Negative ng/mL ng /mL (Negative) Urine Cocaine Scre en Negative ng/mL ng /mL (Negative) U Marijuana (THC) Screen Negative ng/mL ng /mL (Negative) 09/13/21 17:10 WBC RBC Hgb Hct MCV MCH MCHC RDW Plt Count MPV Neut % (Auto) Lymph % (Auto) [place] % (Auto) Eos % (Auto) Baso % (Auto) Neut # (Auto) Lymph # (Auto) [place] # (Auto) Eos # (Auto) Baso # (Auto) Nucleated RBC % (a uto) Nucleated RBCs # PT INR APTT Sodium Potassium Chloride Carbon Dioxide Anion Gap BUN Creatinine GFR Calculation Glucose Calculated Osmolal ity Calcium Total Bilirubin AST ALT Alkaline Phosphata se Troponin T Baselin e Troponin T 120 Min [place] 27.49 ng/L H ng/L (0-10) Delta Troponin T -2.51 ABS# L ABS# (0-10) Total Protein Albumin Globulin Urine Color Urine Appearance Urine pH Ur Specific Gravit y Urine Protein Urine Glucose (UA) Urine Ketones Urine Blood Urine Nitrate Urine Bilirubin Urine Urobilinogen Ur Leukocyte Dorota ase Urine RBC Urine WBC Ur Squamous Epith Cells Amorphous Sediment Urine Bacteria Urine Opiates Scre en Ur Barbiturates Sc reen Ur Phencyclidine S crn Ur Amphetamines Sc reen U Benzodiazepines Scrn Urine Cocaine Scre en U Marijuana (THC) Screen Discharge Plan Discharge Patient Disposition: Home Clinical Impression: Altered mental state Qualifiers: Altered mental status type: disorientation Qualified Code(s): R41.0 - Disorientation, unspecified Hypertension Qualifiers: Hypertension type: unspecified Qualified Code(s): I10 - Essential (primary) hypertension Condition: Stable Prescriptions: No Action Humira Pen 40 mg/0.8 mL pen injector kit 40 mg SUBCUT Q14D Qty: 2 RF: 3 Hold Instructions: Resume on 08/02/21. methotrexate sodium 2.5 mg tablet 7.5 mg PO Q7D Qty: 15 RF: 3 folic acid 1 mg tablet 1 mg PO DAILY@08 Qty: 90 RF: 1 nitroglycerin [Nitrostat] 0.4 mg tablet, sublingual 0.4 mg SUBLINGUAL Q5M PRN (Reason: Chest Pain) Qty: 30 RF: 3 hydrocodone-acetaminophen 7.5-325 mg tablet 1 tab PO TID PRN (Reason: pain) 30 Days Qty: 90 RF: 0 tizanidine 4 mg tablet 4 mg PO TID PRN (Reason: muscle spasticity) 30 Days Qty: 90 RF: 1 levothyroxine [Euthyrox] 150 mcg tablet 150 mcg PO QAM RF: 0 calcium carbonate [Calcium 600] 600 mg calcium (1,500 mg) tablet 600 mg PO DAILY RF: 0 methylsulfonylmethane [MSM] 1,000 mg tablet 1,000 mg PO BID RF: 0 duloxetine 60 mg capsule,delayed release(DR/EC) 60 mg PO DAILY@08 Qty: 30 RF: 1 atorvastatin [Lipitor] 40 mg Tablet 40 mg PO BEDTIME RF: 0 Hold Instructions: Resume on 08/22/21. acetaminophen [Arthritis Pain Reliever] 650 mg Tablet Extended Release 650 mg PO Q4H PRN (Reason: Pain) RF: 0 cholecalciferol (vitamin D3) [Vitamin D3] 25 mcg (1,000 unit) Tablet 2,000 unit PO DAILY@08 RF: 0 albuterol sulfate 2.5 mg /3 mL (0.083 %) Solution For Nebulization 2.5 mg inhalation TID PRN (Reason: Shortness Of Breath) RF: 0 Novolin 70/30 U-100 Insulin 100 unit/mL (70-30) suspension See Rx Instructions .ROUTE .COMPLEX RF: 0 albuterol sulfate 90 mcg/actuation Hfa Aerosol Inhaler 2 puff INHALATION Q6H PRN (Reason: Shortness Of Breath) RF: 0 docusate sodium [Stool Softener] 250 mg Capsule 250 mg PO BEDTIME RF: 0 cyanocobalamin (vitamin B-12) [Vitamin B-12] 500 mcg Tablet 500 mcg PO DAILY RF: 0 chlorpheniramine maleate [ChlorTabs] 4 mg Tablet See Rx Instructions .ROUTE .COMPLEX RF: 0 prednisolone acetate 1 % Drops,Suspension 1 drp ophthalmic (eye) PRN RF: 0 diphenhydramine HCl [Benadryl] 25 mg Capsule See Rx Instructions .ROUTE .COMPLEX RF: 0 pyridostigmine bromide 60 mg Tablet 30 mg PO BID Qty: 60 RF: 4 metoprolol tartrate 50 mg Tablet 100 mg PO BID@0900,2100 Qty: 60 RF: 3 digoxin 125 mcg (0.125 mg) tablet See Rx Instructions .ROUTE .COMPLEX RF: 0 ferrous gluconate 324 mg (37.5 mg iron) tablet See Rx Instructions .ROUTE .COMPLEX RF: 0 magnesium L-lactate 84 mg tablet extended release 84 mg PO BID RF: 0 FeroSul 325 mg (65 mg iron) tablet See Rx Instructions .ROUTE .COMPLEX RF: 0 furosemide 20 mg tablet 20 mg PO EVERY OTHER DAY RF: 0 lisinopril 40 mg tablet 40 mg PO QPM RF: 0 insulin lispro 100 unit/mL insulin pen See Rx Instructions .ROUTE .COMPLEX RF: 0 sulfasalazine 500 mg tablet 500 mg PO BID@08,17 RF: 0 prednisone 2.5 mg tablet 2.5 mg PO QAM RF: 0 diltiazem HCl 120 mg capsule,extended release 24hr 120 mg PO QAM RF: 0 potassium chloride 20 mEq tablet extended release 20 meq PO BID RF: 0 tramadol 50 mg tablet 50 mg PO TID RF: 0 pantoprazole 40 mg tablet,delayed release (DR/EC) 40 mg PO BID RF: 0 Discharge Orders: Discharge ED (Routine); Ordered 09/13/21 Ordered By: Matty Rodríguez Referrals: Davion Griggs MD [Primary Care Provider] - 1-3 days Discharge Diet: Usual diet Discharge Activity: Increase activity as tolerated Patient Instructions: Hypertension (ED), Altered Mental Status (ED) Activity Restrictions/Additional Instructions: Return for worsening mental status, weakness, problems with speech or vision, any other concerning symptoms. Coding Level of Care Code ED Cutting Machine Tender Decorative for Chg Fwd Exam Comprehensive
--- NOTE | 2021-09-13 16:24 | ECG_ITS ---
[facility] Test Date: 2021-09-13 Pat Name: Myesha Parker Department: Room: Gender: Female Circuit Clerk: : 1950 Requested By: Matty Collins Order Number: [id number] Wilbur MD: Lucia Oakley M.D. Measurements Intervals [place] Rate: 95 P: AL: QRS: -59 QRSD: 159 T: 95 QT: 407 QTc: 514 Interpretive Statements Atrial flutter RIGHT BUNDLE BRANCH BLOCK LEFT ANTERIOR FASCICULAR BLOCK VOLTAGE CRITERIA FOR LVH POSSIBLE SEPTAL MYOCARDIAL INFARCTION , OF INDETERMINATE AGE ST DEPRESSION, CONSIDER SUBENDOCARDIAL INJURY Compared to ECG 09/13/2021 14:19:34 ST (T wave) deviation now present Sinus rhythm no longer present Ventricular premature complex(es) no longer present First degree AV block no longer present Myocardial infarct finding still present Electronically Signed On 09-16-2021 9:35:42 DRUPAL WEB DEVELOPER by Lucia Oakley M.D. [email or web address]
[2021-09-13] MEDS: enalaprilat 1.25 mg/mL Inj IVP (16:34)
[2021-09-13 16:57] LABS: Amphetamines Screen Urine Negative (Negative); Barbiturates Screen Urine Negative (Negative); Benzodiazepines Screen Urine Negative (Negative); Cocaine Screen Urine Negative (Negative); Opiate Screen Urine Positive (Negative); PCP Screen Urine Negative (Negative); THC Screen Urine Negative (Negative)
[2021-09-13 17:00] LABS: Add Urine Microscopic? YES; Bilirubin Urine 1+ (Negative); Blood Urine Neg (Negative); Glucose Urine UA 1+ (Normal); Ketones Urine 1+ (Negative); Leukocyte Esterase Urine Trace (Negative); Nitrate Urine Negative (Negative); Protein Urine 1+ (Negative); Specific Gravity, Urine 1.015 (1.005-1.030); Urine Appearance Clear (CLEAR); Urine Color Yellow (Yellow); Urobilinogen Urine Norm (Negative); pH Urine 5 (5-7)
[2021-09-13 17:01] LABS: Add Urine Culture? Yes
[2021-09-13 17:48] LABS: Troponin 5 2HR 27.49 ng/L (0-10)
[2021-09-13 17:59] LABS: Troponin 5 2HR Delta -2.51 ABS# (0-10)
[2021-09-13 18:39] VITALS: BP 154/106; PULSE 99; RESP 16; O2SAT 98
[2021-09-13] MEDS: metoprolol tartrate 1 mg/1 mL SDV 5 mL 5 MG IVP (19:11)
[2021-09-13 20:02] VITALS: BP 194/94; PULSE 98; RESP 16; O2SAT 98
== END 2021-09-13 20:07 | disposition home or self-care (01) ==
PROVIDERS: Emergency Provider Emergency Medicine; PCP Family Medicine
DX: R41.0 Disorientation, unspecified (principal); I10 Essential (primary) hypertension; Z79.4 Long term (current) use of insulin; J44.9 Chronic obstructive pulmonary disease, unspecified; I25.10 Atherosclerotic heart disease of native coronary artery without angina pectoris; Z99.81 Dependence on supplemental oxygen; E78.5 Hyperlipidemia, unspecified; Z87.891 Personal history of nicotine dependence; Z86.73 Personal history of transient ischemic attack (TIA), and cerebral infarction without residual deficits
CPT/HCPCS: 70450; 71045; 80053; 80306; 81001; 84484; 85025; 85610; 85730; 87077; 87086; 87186; 93005; 96374; 96375; 99283; J0360; J3490

== ENCOUNTER 2021-10-03 23:56 | Emergency (ER) | payer MEDICARE, SELFPAY ==
--- NOTE | 2021-10-03 23:57 | CTR_ITS ---
PROCEDURE INFORMATION: Exam: CT Cervical Spine Without Contrast Exam date and time: 10/03/2021 11:57 PM Age: 71 years old Clinical indication: Injury or trauma; Fall; Blunt trauma TECHNIQUE: Imaging protocol: Computed tomography images of the cervical spine without contrast. Radiation optimization: All CT scans at this facility use at least one of these dose optimization techniques: automated exposure control; mA and/or kV adjustment per patient size (includes targeted exams where dose is matched to clinical indication); or iterative reconstruction. COMPARISON: CT cervical spin wo con* [id number] 08/02/2021 1:53 AM RADIATION DOSE METRICS: Total DLP (mGy-cm): 743.31 FINDINGS: Vertebrae: Moderate to severe degenerative changes are present in the cervical spine. No acute fracture is visualized. Mild anterolisthesis of C3 over C4 is noted. Soft tissues: Unremarkable. CT/CT cervical spin wo con* [id number] IMPRESSION: No cervical spine fracture.
--- NOTE | 2021-10-03 23:57 | CTR_ITS ---
PROCEDURE INFORMATION: Exam: CT Head Without Contrast Exam date and time: 10/03/2021 11:57 PM Age: 71 years old Clinical indication: Injury or trauma; Fall; Blunt trauma (contusions or hematomas); Without loss of consciousness TECHNIQUE: Imaging protocol: Computed tomography of the head without contrast. Radiation optimization: All CT scans at this facility use at least one of these dose optimization techniques: automated exposure control; mA and/or kV adjustment per patient size (includes targeted exams where dose is matched to clinical indication); or iterative reconstruction. COMPARISON: CT head wo con* [id number] 09/13/2021 2:08 PM RADIATION DOSE METRICS: Total DLP (mGy-cm): 784.7 FINDINGS: Brain: Mild atrophy and mild white matter chronic microvascular changes are noted. No hemorrhage or evidence of acute infarction. Cerebral ventricles: No ventriculomegaly. Paranasal sinuses: Visualized sinuses are unremarkable. No fluid levels. Mastoid air cells: Visualized mastoid air cells are well aerated. Bones/joints: Unremarkable. No acute fracture. Soft tissues: Unremarkable. CT/CT head wo con* [id number] IMPRESSION: No acute intracranial abnormality
[2021-10-04 00:03] VITALS: BP 120/77; PULSE 79; RESP 18; TEMP 36.6; O2SAT 99; BMI 35.1
--- NOTE | 2021-10-04 01:15 | W.ED.FALL ---
HPI - Fall General: Chief Complaint: Fall Stated Complaint: FALL Time Seen by Provider: 10/04/21 00:43 Source: patient, family () and EMS Mode of arrival: EMS Limitations: no limitations History of Present Illness: Patient is a 71-year-old female well-known to the emergency department here with her after arriving via EMS for evaluation following a fall. Patient tells me she falls frequently secondary to feeling off balance. She states this is not anything new for her and has had this for several years. Patient states her primary care provider has written for in-home therapy to help with strengthening and balance-she does not feel like this is helping. Patient states she was headed to bed when she fell. She states she struck her head. No LOC. She complains of a headache and some neck discomfort. Patient did not have any headache prior to the fall. She denies chest pain, shortness of breath, difficulty breathing, palpitations. Patient has been ambulatory since the fall without difficulty. MD complaint: fall Onset (ago): hour(s) Fall from: standing Fall witnessed: yes, by family Place fall occurred: home Loss of consciousness: None Prolonged down time: no Symptoms prior to fall: none Associated symptoms-after fall: Reports headache(s) and neck pain; Denies abdominal pain, chest pain, confusion or lightheadedness Review of Systems Const: Denies: fever(s), chills, body aches, fatigue or malaise Eyes: Denies: change in vision or blurry vision Card: Denies: chest pain, palpitations, irregular heart rhythm, lightheadedness, syncope or dyspnea on exertion Resp: Denies: dyspnea, productive cough or pain on inspiration GI: Denies: abdominal pain, nausea, vomiting, heartburn or diarrhea : Denies: flank pain or dysuria Musc: Reports: neck pain; Denies: back pain or joint pain Skin/Breast: Denies: rash Neuro: Reports: headache(s) and frequent falls; Denies: numbness in extremities, weakness in extremities, sensory changes, dizziness, confusion, behavioral changes, Slurred speech present or seizure-like activity [facility] PFSH: Medical History Anxiety and depression CHF exacerbation Chronic knee pain Chronic low back pain COPD (chronic obstructive pulmonary disease) Oxygen dependent, 2 L at baseline Coronary artery disease COVID-14 August 2020 Duodenal ulcer due to bacteria Fibromyalgia High risk medication use Hyperlipidemia Hypertension Hypothyroidism Immunization counseling Inflammatory arthritis Intermittent atrial fibrillation Because the patient history of frequent fall she was thought to be high risk for bleeding complications. So she is taking only the aspirin at this time. SHE HAS EASY BRUISING WELL Left renal mass Liver cirrhosis Low back pain of over 3 months duration Lung nodule Narrow complex tachycardia Osteoarthritis of knees, bilateral Poorly controlled diabetes mellitus Psychiatric care Recurrent UTI Seronegative rheumatoid arthritis of both hands Unstable angina Urgency incontinence UTI (urinary tract infection) Surgical History History of cardiac cath History of cholecystectomy History of hysterectomy History of knee replacement History of thyroid surgery Family History Other CAD (coronary artery disease) Cancer Denies family history of Anesthesia complication Bleeding disorder Social History Smoking and tobacco status: former smoker Quit status (tobacco): has quit using tobacco Year quit tobacco: 2005 Second hand smoke exposure: No Alcohol intake: never Adopted: No Caregiver/support person: No Lives independently: No Household members: spouse Marital status: Current occupational status: retired History of recent travel: No Current gender identity: Female Female Reproductive History: Date of last menstrual period: 11/18/20 Physical Exam Const: COMMON NORMALS: no acute distress, patient oriented x3, no limitations and alert GENERAL APPEARANCE: cooperative NUTRITIONAL APPEARANCE: overweight and other (deconditioned ) ORIENTATION/CONSCIOUSNESS: Yes awake, Yes oriented to person, Yes oriented to place and Yes oriented to time HENMT: COMMON NORMALS: normocephalic and atraumatic HEAD & SCALP: normal to inspection, normocephalic and atraumatic FACE & SINUS: normal facial exam Neck/C-Spine: COMMON NORMALS: full ROM GENERAL: Yes normal visual inspection CERVICAL SPINE: Yes pain with cervical ROM, Yes Cervical spine tenderness (upper to mid c spine), No step off deformity and No Paracervical muscle tenderness Chest: COMMONS NORMALS: normal inspection of the chest and normal palpation of entire chest wall Resp: COMMON NORMALS: normal respiratory effort and clear to auscultation bilaterally AUSCULTATION: clear to auscultation bilaterally OTHER: chronically on 2L O2 Cardio: COMMON NORMALS: regular rate and regular rhythm RATE: regular rate RHYTHM: regular rhythm Back/Pelvis: COMMON NORMALS: thoracic and lumbar spine normal to inspection, no thoracic nor lumbar tenderness and thoraco-lumbar ROM normal Extremity: COMMON NORMALS: normal to inspection and full ROM NARRATIVE EXTREMITY EXAM: patient was witnessed getting out of her wheelchair and walking to the bathroom with minimal assistance-she is bearing weight fully to bilateral LEs GENERAL: Yes normal exam except as noted Neuro: LINDY COMA SCALE: document GCS findings [place] coma scale eye opening: Spontaneous [place] coma scale verbal response: Orientated [place] coma scale motor response: Obey commands [place] coma scale total score: 15 COMMON NORMALS: patient oriented x3, CN's II-XII intact bilaterally, moves all extremities, no focal motor deficits, no sensory deficits noted and gait normal SENSORIUM/ORIENTATION: Yes alert, Yes oriented to person, Yes oriented to place and Yes oriented to time Skin: TRAUMA: no lacerations or abrasions Course Vital Signs: Vital signs: Vital Signs Temperature 97.8 F 10/04/21 00:03 Pulse Rate 79 10/04/21 00:03 Respiratory Rate 18 10/04/21 00:03 Blood Pressure 120/77 10/04/21 00:03 Pulse Oximetry 99 10/04/21 00:03 MDM - Fall Medical Decision Making Patient here for evaluation following a fall. Patient states she chronically has issues with balance and gait. She is supposed to be using a walker at all times. Patient had no complaint of lightheadedness, dizziness, chest pain, shortness of breath, difficulty breathing, palpitations before the fall. She has not had any of these since the fall. She complains of a headache and some mild neck discomfort. CT head/cervical spine are negative. Patient will be allowed discharge home at this time. Return to ED precautions verbally given to patient and . Lab Data Radiology Impressions Cervical Spine CT 10/03/21 23:57 IMPRESSION: No cervical spine fracture. Head CT 10/03/21 23:57 IMPRESSION: No acute intracranial abnormality Discharge Plan Discharge Patient Disposition: Home Clinical Impression: Fall Condition: Stable Prescriptions: No Action Humira Pen 40 mg/0.8 mL pen injector kit 40 mg SUBCUT Q14D Qty: 2 3RF Hold Instructions: Resume on 08/02/21. Rx Instructions: TAKES ON SATURDAYS EVERY 14 DAYS methotrexate sodium 2.5 mg tablet 7.5 mg PO Q7D Qty: 15 3RF Rx Instructions: ON SATURDAYS folic acid 1 mg tablet 1 mg PO DAILY@08 Qty: 90 1RF nitroglycerin [Nitrostat] 0.4 mg tablet, sublingual 0.4 mg SUBLINGUAL Q5M PRN (Reason: Chest Pain) Qty: 30 3RF Rx Instructions: MAX 3 DOSES PER EPISODE hydrocodone-acetaminophen 7.5-325 mg tablet 1 tab PO TID PRN (Reason: pain) 30 Days Qty: 90 0RF Rx Instructions: fill on or after 07/20/21 tizanidine 4 mg tablet 4 mg PO TID PRN (Reason: muscle spasticity) 30 Days Qty: 90 1RF levothyroxine [Euthyrox] 150 mcg tablet 150 mcg PO QAM 0RF calcium carbonate [Calcium 600] 600 mg calcium (1,500 mg) tablet 600 mg PO DAILY 0RF methylsulfonylmethane [MSM] 1,000 mg tablet 1,000 mg PO BID 0RF duloxetine 60 mg capsule,delayed release(DR/EC) 60 mg PO DAILY@08 Qty: 30 1RF atorvastatin [Lipitor] 40 mg Tablet 40 mg PO BEDTIME 0RF Hold Instructions: Resume on 08/22/21. acetaminophen [Arthritis Pain Reliever] 650 mg Tablet Extended Release 650 mg PO Q4H PRN (Reason: Pain) 0RF cholecalciferol (vitamin D3) [Vitamin D3] 25 mcg (1,000 unit) Tablet 2,000 unit PO DAILY@08 0RF albuterol sulfate 2.5 mg /3 mL (0.083 %) Solution For Nebulization 2.5 mg inhalation TID PRN (Reason: Shortness Of Breath) 0RF Novolin 70/30 U-100 Insulin 100 unit/mL (70-30) suspension See Rx Instructions .ROUTE .COMPLEX 0RF Rx Instructions: 55 units subcutaneously qam and 35 units qpm albuterol sulfate 90 mcg/actuation Hfa Aerosol Inhaler 2 puff INHALATION Q6H PRN (Reason: Shortness Of Breath) 0RF docusate sodium [Stool Softener] 250 mg Capsule 250 mg PO BEDTIME 0RF cyanocobalamin (vitamin B-12) [Vitamin B-12] 500 mcg Tablet 500 mcg PO DAILY 0RF chlorpheniramine maleate [ChlorTabs] 4 mg Tablet See Rx Instructions .ROUTE .COMPLEX 0RF Rx Instructions: 4 mg orally TID THEN ALTERNATES WITH BENADRYL THEN NEXT DAY prednisolone acetate 1 % Drops,Suspension 1 drp ophthalmic (eye) PRN 0RF Rx Instructions: IN RIGHT EYE diphenhydramine HCl [Benadryl] 25 mg Capsule See Rx Instructions .ROUTE .COMPLEX 0RF Rx Instructions: 25MG PO TID THEN ALTERNATES WITH CHLORTAB THE NEXT DAY pyridostigmine bromide 60 mg Tablet 30 mg PO BID Qty: 60 4RF metoprolol tartrate 50 mg Tablet 100 mg PO BID@0900,2100 Qty: 60 3RF digoxin 125 mcg (0.125 mg) tablet See Rx Instructions .ROUTE .COMPLEX 0RF Rx Instructions: ALTERNATE 1/2 TABLET DAILY WITH 1 TABLET DAILY ferrous gluconate 324 mg (37.5 mg iron) tablet See Rx Instructions .ROUTE .COMPLEX 0RF Rx Instructions: ALTERNATE 1 TABLET DAILY WITH 2 TABLETS DAILY magnesium L-lactate 84 mg tablet extended release 84 mg PO BID 0RF FeroSul 325 mg (65 mg iron) tablet See Rx Instructions .ROUTE .COMPLEX 0RF Rx Instructions: 325mg po on sun,mon,wed and fri furosemide 20 mg tablet 20 mg PO EVERY OTHER DAY 0RF lisinopril 40 mg tablet 40 mg PO QPM 0RF insulin lispro 100 unit/mL insulin pen See Rx Instructions .ROUTE .COMPLEX 0RF Rx Instructions: SLIDING SCALE before meals AND BEDTIME-MAX OF 40 UNITS PER DAY 150-200= 0 units 201-250= 2 units 251-300= 4 units 301-350= 6 units 351-400= 8 units sulfasalazine 500 mg tablet 500 mg PO BID@17 0RF prednisone 2.5 mg tablet 2.5 mg PO QAM 0RF diltiazem HCl 120 mg capsule,extended release 24hr 120 mg PO QAM 0RF potassium chloride 20 mEq tablet extended release 20 meq PO BID 0RF tramadol 50 mg tablet 50 mg PO TID 0RF pantoprazole 40 mg tablet,delayed release (DR/EC) 40 mg PO BID 0RF Discharge Orders: Discharge ED (Routine); Ordered 10/04/21 Ordered By: Christiana Burns Referrals: Davion Griggs MD [Primary Care Provider] - Coding Level of Care Code ED Lithographed Plate Inspector for Sangg Chapin
[2021-10-04 02:16] VITALS: BP 102/67; PULSE 53; O2SAT 100
== END 2021-10-04 02:17 | disposition home or self-care (01) ==
PROVIDERS: Emergency Provider Physician Assistant; PCP Family Medicine
DX: R51.9 Headache, unspecified (principal); W18.30XA Fall on same level, unspecified, initial encounter; Z79.4 Long term (current) use of insulin; J44.9 Chronic obstructive pulmonary disease, unspecified; Z99.81 Dependence on supplemental oxygen; I25.10 Atherosclerotic heart disease of native coronary artery without angina pectoris; E78.5 Hyperlipidemia, unspecified; I10 Essential (primary) hypertension; Z87.891 Personal history of nicotine dependence
CPT/HCPCS: 70450; 72125; 99282

== ENCOUNTER 2021-10-10 03:43 | Emergency (ER) | payer MEDICARE, SELFPAY ==
[2021-10-10 03:44] VITALS: BP 200/98; PULSE 80; RESP 18; TEMP 36.6; O2SAT 95; BMI 34.9
--- NOTE | 2021-10-10 04:08 | ED_ITS ---
HPI - Nausea/Vomiting/Diarrhea General: Chief complaint: Nausea/Vomiting/Diarrhea Stated complaint: NOT FEELING WELL Time Seen by Provider: 10/10/21 03:52 Source: patient and EMS History of Present Illness: 71-year-old female well-known to the ER. She presents after 30 minutes of vomiting at home. She is feeling somewhat better now after oral Zofran in route via EMS. No fever, no chills, no cough, no shortness of breath. She does use oxygen at home. MD elicited complaint: nausea and vomiting Onset (ago): minute(s) Associated nausea: Yes Associated abdominal pain: Yes (Mild) Location of pain: Diffuse Radiation: diffuse Pain consistency: constant Severity: mild Quality: cramping Exacerbating factors: vomiting Relieving factors: none Associated symtoms: Reports nausea; Denies altered mental status, change in vision, chest pain, cough, diaphoresis, decreased urine output, dysuria, fevers/chills, headache(s), short of breath or syncope Review of Systems Const: Denies: diaphoresis Eyes: Denies: change in vision ENMT: Denies: throat pain Card: Denies: chest pain or syncope Resp: Denies: dyspnea, productive cough or non-productive cough GI: Reports: nausea : Denies: dysuria Neuro: Denies: headache(s) PFSH ED PFSH: Medical History Anxiety and depression CHF exacerbation Chronic knee pain Chronic low back pain COPD (chronic obstructive pulmonary disease) Oxygen dependent, 2 L at baseline Coronary artery disease COVID-14 August 2020 Duodenal ulcer due to bacteria Fibromyalgia High risk medication use Hyperlipidemia Hypertension Hypothyroidism Immunization counseling Inflammatory arthritis Intermittent atrial fibrillation Because the patient history of frequent fall she was thought to be high risk for bleeding complications. So she is taking only the aspirin at this time. SHE HAS EASY BRUISING WELL Left renal mass Liver cirrhosis Low back pain of over 3 months duration Lung nodule Narrow complex tachycardia Osteoarthritis of knees, bilateral Poorly controlled diabetes mellitus Psychiatric care Recurrent UTI Seronegative rheumatoid arthritis of both hands Unstable angina Urgency incontinence UTI (urinary tract infection) Surgical History History of cardiac cath History of cholecystectomy History of hysterectomy History of knee replacement History of thyroid surgery Family History Other CAD (coronary artery disease) Cancer Denies family history of Anesthesia complication Bleeding disorder Social History Smoking and tobacco status: former smoker Quit status (tobacco): has quit using tobacco Year quit tobacco: 2005 Second hand smoke exposure: No Alcohol intake: never Adopted: No Caregiver/support person: No Lives independently: No Household members: spouse Marital status: Current occupational status: retired History of recent travel: No Current gender identity: Female Female Reproductive History: Date of last menstrual period: 11/18/20 Physical Exam Const: EXAM LIMITATIONS: no altered mental status GENERAL APPEARANCE: cooperative and frail appearing; not ill appearing HENMT: COMMON NORMALS: normocephalic, atraumatic and Normal external nose present HEAD & SCALP: normocephalic and atraumatic FACE & SINUS: normal facial exam NOSE: Normal external nose present and Normal nares present MOUTH: Normal oral and palatal mucosa present Eye: COMMON NORMALS: Equal, round and reactive pupils present and EOMs intact bilaterally PUPIL: Yes Equal, round and reactive pupils present Chest: COMMONS NORMALS: normal inspection of the chest Resp: COMMON NORMALS: normal respiratory effort, No use of accessory muscles and clear to auscultation bilaterally AUSCULTATION: clear to auscultation bilaterally Cardio: COMMON NORMALS: regular rate and regular rhythm RATE: regular rate RHYTHM: regular rhythm GI: COMMON NORMALS: Normal to inspection, nondistended, normoactive bowel soun ds present PALPATION: Yes Tenderness to palpation present (GI) (Diffuse) Extremity: GENERAL: Yes edema Neuro: BRANT COMA SCALE: document GCS findings [place] coma scale eye opening: Spontaneous [place] coma scale verbal response: Orientated [place] coma scale motor response: Obey commands [place] coma scale total score: 15 Course Vital Signs: Vital signs: Vital Signs Temperature 97.8 F 10/10/21 03:44 Pulse Rate 80 10/10/21 03:44 Respiratory Rate 18 10/10/21 03:44 Blood Pressure 200/98 10/10/21 03:44 Pulse Oximetry 95 10/10/21 03:44 MDM - Nausea/Vomiting/Diarrhea Medical Decision Making No repeated episodes of vomiting here. White blood cell count is 7.2. Creatinine 1.4. This is not far off of her baseline. Procalcitonin is 0.09 with a CRP of 3. Both normal. With no repeated episodes of vomiting, no fever, and above laboratory, she will be allowed back home. Lab Data : 10/10/21 04:10 10/10/21 04:10 Laboratory Results WBC 7.2 10^3/uL (4.0-10.0) 10/10/21 04:10 RBC 3.90 10^6/uL (4.1-5.3) L 10/10/21 04:10 Hgb 12.4 g/dL (11.5-15.3) 10/10/21 04:10 Hct 36.7 % (37.0-47.0) L 10/10/21 04:10 MCV 94.1 fl (81-99) 10/10/21 04:10 MCH 31.8 pg (28.0-34.0) 10/10/21 04:10 MCHC 33.8 g/dL (30.0-36.0) 10/10/21 04:10 RDW 13.7 % (12.1-15.1) 10/10/21 04:10 Plt Count 228 10^3/cmm (130-400) 10/10/21 04:10 MPV 9.6 fL (7.4-10.4) 10/10/21 04:10 Neut % (Auto) 67.0 % 10/10/21 04:10 Lymph % (Auto) 21.1 % 10/10/21 04:10 Bowie % (Auto) 9.8 % 10/10/21 04:10 Eos % (Auto) 0.7 % 10/10/21 04:10 Baso % (Auto) 0.7 % 10/10/21 04:10 Neut # (Auto) 4.84 10^3/uL (1.8-7.7) 10/10/21 04:10 Lymph # (Auto) 1.5 10^3/uL (0.8-4.8) 10/10/21 04:10 Bowie # (Auto) 0.7 10^3/uL (0.2-0.9) 10/10/21 04:10 Eos # (Auto) 0.1 10^3/uL (0.0-0.8) 10/10/21 04:10 Baso # (Auto) 0.1 10^3/uL (0.0-0.1) 10/10/21 04:10 Nucleated RBC % (auto) 0 % 10/10/21 04:10 Nucleated RBCs # 0.0 /100WBC 10/10/21 04:10 Sodium 141 mmol/L (136-145) 10/10/21 04:10 Potassium 3.5 mmol/L (3.5-5.1) 10/10/21 04:10 Chloride 95 mmol/L (98-107) L 10/10/21 04:10 Carbon Dioxide 30 mmol/L (22-29) H 10/10/21 04:10 Anion Gap 19.5 (5-19) H 10/10/21 04:10 BUN 23 mg/dL (8-23) 10/10/21 04:10 Creatinine 1.4 mg/dL (0.5-0.9) H 10/10/21 04:10 GFR Calculation Not Reportable 10/10/21 04:10 Glucose 259 mg/dL (65-115) H 10/10/21 04:10 Calculated Osmolality 305 mOsm/kg (285-295) H 10/10/21 04:10 Calcium 9.5 mg/dL (8.5-10.5) 10/10/21 04:10 Total Bilirubin 0.4 mg/dL (0.15-1.2) 10/10/21 04:10 AST 36 U/L (0-32) H 10/10/21 04:10 ALT 28 U/L (0-33) 10/10/21 04:10 Alkaline Phosphatase 110 IU/L (35-105) H 10/10/21 04:10 C-Reactive Protein 3.0 mg/L (0.0-4.9) 10/10/21 04:10 Total Protein 6.6 g/dL (6.6-8.7) 10/10/21 04:10 Albumin 4.4 g/dL (3.5-5.2) 10/10/21 04:10 Globulin 2.2 g/dL (1.3-4.6) 10/10/21 04:10 Lipase 37 U/L (13-60) 10/10/21 04:10 Procalcitonin 0.09 ng/mL (0-0.5) 10/10/21 04:10 Urine Color Yellow (Yellow) 10/10/21 04:44 Urine Appearance Clear (CLEAR) 10/10/21 04:44 Urine pH 5 (5-7) 10/10/21 04:44 Ur Specific [place] 1.020 (1.005-1.030) 10/10/21 04:44 Urine Protein 3+ (Negative) H 10/10/21 04:44 Urine Glucose (UA) Norm (Normal) 10/10/21 04:44 Urine Ketones 1+ (Negative) H 10/10/21 04:44 Urine Blood Neg (Negative) 10/10/21 04:44 Urine Nitrate Negative (Negative) 10/10/21 04:44 Urine Bilirubin 1+ (Negative) H 10/10/21 04:44 Urine Urobilinogen 1+ mg/dL (Negative) H 10/10/21 04:44 Ur Leukocyte Esterase 1+ (Negative) H 10/10/21 04:44 Urine RBC 0-4 /hpf (0-2) H 10/10/21 04:44 Urine WBC 5-10 /hpf (0-5) H 10/10/21 04:44 Ur Squamous Epith Cells 5-10 /hpf (0-5) H 10/10/21 04:44 Ur Renal Epithelial Cell 0 /hpf 10/10/21 04:44 Amorphous Sediment Not Reportable 10/10/21 04:44 Urine Bacteria Trace /hpf (NONE) 10/10/21 04:44 Hyaline Casts 5-10 /lpf H 10/10/21 04:44 Urine Mucus 2+ /hpf 10/10/21 04:44 Digoxin 0.6 ng/mL (0.6-1.2) 10/10/21 04:10 Serum Ketones Negative (Negative) 10/10/21 04:10 Discharge Plan Discharge Patient Disposition: Home Clinical Impression: Vomiting Condition: Stable Prescriptions: No Action Humira Pen 40 mg/0.8 mL pen injector kit 40 mg SUBCUT Q14D Qty: 2 3RF Hold Instructions: Resume on 08/02/21. Rx Instructions: TAKES ON SATURDAYS EVERY 14 DAYS methotrexate sodium 2.5 mg tablet 7.5 mg PO Q7D Qty: 15 3RF Rx Instructions: ON SATURDAYS folic acid 1 mg tablet 1 mg PO DAILY@08 Qty: 90 1RF nitroglycerin [Nitrostat] 0.4 mg tablet, sublingual 0.4 mg SUBLINGUAL Q5M PRN (Reason: Chest Pain) Qty: 30 3RF Rx Instructions: MAX 3 DOSES PER EPISODE hydrocodone-acetaminophen 7.5-325 mg tablet 1 tab PO TID PRN (Reason: pain) 30 Days Qty: 90 0RF Rx Instructions: fill on or after 07/20/21 tizanidine 4 mg tablet 4 mg PO TID PRN (Reason: muscle spasticity) 30 Days Qty: 90 1RF levothyroxine [Euthyrox] 150 mcg tablet 150 mcg PO QAM 0RF calcium carbonate [Calcium 600] 600 mg calcium (1,500 mg) tablet 600 mg PO DAILY 0RF methylsulfonylmethane [MSM] 1,000 mg tablet 1,000 mg PO BID 0RF duloxetine 60 mg capsule,delayed release(DR/EC) 60 mg PO DAILY@08 Qty: 30 1RF atorvastatin [Lipitor] 40 mg Tablet 40 mg PO BEDTIME 0RF Hold Instructions: Resume on 08/22/21. acetaminophen [Arthritis Pain Reliever] 650 mg Tablet Extended Release 650 mg PO Q4H PRN (Reason: Pain) 0RF cholecalciferol (vitamin D3) [Vitamin D3] 25 mcg (1,000 unit) Tablet 2,000 unit PO DAILY@08 0RF albuterol sulfate 2.5 mg /3 mL (0.083 %) Solution For Nebulization 2.5 mg inhalation TID PRN (Reason: Shortness Of Breath) 0RF Novolin 70/30 U-100 Insulin 100 unit/mL (70-30) suspension See Rx Instructions .ROUTE .COMPLEX 0RF Rx Instructions: 55 units subcutaneously qam and 35 units qpm albuterol sulfate 90 mcg/actuation Hfa Aerosol Inhaler 2 puff INHALATION Q6H PRN (Reason: Shortness Of Breath) 0RF docusate sodium [Stool Softener] 250 mg Capsule 250 mg PO BEDTIME 0RF cyanocobalamin (vitamin B-12) [Vitamin B-12] 500 mcg Tablet 500 mcg PO DAILY 0RF chlorpheniramine maleate [ChlorTabs] 4 mg Tablet See Rx Instructions .ROUTE .COMPLEX 0RF Rx Instructions: 4 mg orally TID THEN ALTERNATES WITH BENADRYL THEN NEXT DAY prednisolone acetate 1 % Drops,Suspension 1 drp ophthalmic (eye) PRN 0RF Rx Instructions: IN RIGHT EYE diphenhydramine HCl [Benadryl] 25 mg Capsule See Rx Instructions .ROUTE .COMPLEX 0RF Rx Instructions: 25MG PO TID THEN ALTERNATES WITH CHLORTAB THE NEXT DAY pyridostigmine bromide 60 mg Tablet 30 mg PO BID Qty: 60 4RF metoprolol tartrate 50 mg Tablet 100 mg PO BID@0900,2100 Qty: 60 3RF digoxin 125 mcg (0.125 mg) tablet See Rx Instructions .ROUTE .COMPLEX 0RF Rx Instructions: ALTERNATE 1/2 TABLET DAILY WITH 1 TABLET DAILY ferrous gluconate 324 mg (37.5 mg iron) tablet See Rx Instructions .ROUTE .COMPLEX 0RF Rx Instructions: ALTERNATE 1 TABLET DAILY WITH 2 TABLETS DAILY magnesium L-lactate 84 mg tablet extended release 84 mg PO BID 0RF FeroSul 325 mg (65 mg iron) tablet See Rx Instructions .ROUTE .COMPLEX 0RF Rx Instructions: 325mg po on sun,mon,wed and fri furosemide 20 mg tablet 20 mg PO EVERY OTHER DAY 0RF lisinopril 40 mg tablet 40 mg PO QPM 0RF insulin lispro 100 unit/mL insulin pen See Rx Instructions .ROUTE .COMPLEX 0RF Rx Instructions: SLIDING SCALE before meals AND BEDTIME-MAX OF 40 UNITS PER DAY 150-200= 0 units 201-250= 2 units 251-300= 4 units 301-350= 6 units 351-400= 8 units sulfasalazine 500 mg tablet 500 mg PO BID@08,17 0RF prednisone 2.5 mg tablet 2.5 mg PO QAM 0RF diltiazem HCl 120 mg capsule,extended release 24hr 120 mg PO QAM 0RF potassium chloride 20 mEq tablet extended release 20 meq PO BID 0RF tramadol 50 mg tablet 50 mg PO TID 0RF pantoprazole 40 mg tablet,delayed release (DR/EC) 40 mg PO BID 0RF Discharge Orders: Discharge ED (Routine); Ordered 10/10/21 Ordered By: Matty Rodríguez Referrals: Davion Griggs MD [Primary Care Provider] - 4-7 days Patient Instructions: Opioid Safety, Vomiting - Adult Coding Level of Care Code ED Tool And Die Maker/Designer for Sangg Fwd Exam Comprehensive
[2021-10-10] MEDS: ondansetron 2 mg/ML SDV 2 mL 4 MG IVP (04:19)
[2021-10-10] MEDS: nitroglycerin 0.4 mg sublingual Tablet SUBLINGUAL (04:20)
[2021-10-10] MEDS: sodium chloride 0.9% 500 ML IV (04:20)
[2021-10-10 04:21] LABS: Basophils # 0.1 10^3/uL (0.0-0.1); Basophils % 0.7 %; Eosinophils # 0.1 10^3/uL (0.0-0.8); Eosinophils % 0.7 %; Hematocrit 36.7 % (37.0-47.0); Hemoglobin 12.4 g/dL (11.5-15.3); Lymphocytes # 1.5 10^3/uL (0.8-4.8); Lymphocytes % 21.1 %; Mean Corpuscular HGB Conc 33.8 g/dL (30.0-36.0); Mean Corpuscular Hemoglobin 31.8 pg (28.0-34.0); Mean Corpuscular Volume 94.1 fl (81-99); Mean Platelet Volume 9.6 fL (7.4-10.4); Monocytes # 0.7 10^3/uL (0.2-0.9); Monocytes % 9.8 %; Neutrophils # 4.84 10^3/uL (1.8-7.7); Nucleated Red Blood Cells % 0 %; Platelet Count 228 10^3/cmm (130-400); Red Cell Distribution Width 13.7 % (12.1-15.1); White Blood Count 7.2 10^3/uL (4.0-10.0)
[2021-10-10 04:55] LABS: Ketone (Acetest) Serum Negative (Negative)
[2021-10-10 05:02] LABS: Add Urine Microscopic? YES; Bilirubin Urine 1+ (Negative); Blood Urine Neg (Negative); Glucose Urine UA Norm (Normal); Ketones Urine 1+ (Negative); Leukocyte Esterase Urine 1+ (Negative); Nitrate Urine Negative (Negative); Protein Urine 3+ (Negative); Urine Appearance Clear (CLEAR); Urine Color Yellow (Yellow); Urobilinogen Urine 1+ mg/dL (Negative); pH Urine 5 (5-7)
[2021-10-10 05:02] LABS: Digoxin 0.6 ng/mL (0.6-1.2)
[2021-10-10 05:03] LABS: Add Urine Culture? No; Bacteria Urine TRACE /hpf; Mucus Urine 2+ /hpf; RBC Urine 0-4 /hpf (0-2); Renal Epithelial Cells Urine 0 /hpf
[2021-10-10 05:04] LABS: Alanine Aminotransferase 28 U/L (0-33); Albumin Level 4.4 g/dL (3.5-5.2); Alkaline Phosphatase 110 IU/L (35-105); Aspartate Amino Transferase 36 U/L (0-32); Blood Urea Nitrogen 23 mg/dL (8-23); Calcium 9.5 mg/dL (8.5-10.5); Carbon Dioxide 30 mmol/L (22-29); Chloride 95 mmol/L (98-107); Globulin 2.2 g/dL (1.3-4.6); Glucose 259 mg/dL (65-115); Lipase 37 U/L (13-60); Osmolality Calculated 305 mOsm/kg (285-295); Sodium 141 mmol/L (136-145); Total Bilirubin 0.4 mg/dL (0.15-1.2); Total Protein 6.6 g/dL (6.6-8.7)
[2021-10-10 05:05] LABS: Anion Gap 19.5 (5-19); Potassium 3.5 mmol/L (3.5-5.1)
[2021-10-10 05:10] LABS: Procalcitonin 0.09 ng/mL (0-0.5)
== END 2021-10-10 06:02 | disposition home or self-care (01) ==
PROVIDERS: Emergency Provider Emergency Medicine; PCP Family Medicine
DX: R11.11 Vomiting without nausea (principal); Z79.4 Long term (current) use of insulin; J44.9 Chronic obstructive pulmonary disease, unspecified; I25.10 Atherosclerotic heart disease of native coronary artery without angina pectoris; I11.0 Hypertensive heart disease with heart failure; I50.9 Heart failure, unspecified; E78.5 Hyperlipidemia, unspecified; Z87.891 Personal history of nicotine dependence
CPT/HCPCS: 80053; 80162; 81001; 82009; 83690; 84145; 85025; 86140; 96361; 96374; 99284; J2405; J7040

== ENCOUNTER → 2021-10-27 08:29 | Outpatient (BNVA) | payer MEDICARE, SELFPAY | PROVIDERS: PCP Family Medicine; Visit Provider Nurse Practitioner Psychiatric/Mental Health | DX: F43.12 Post-traumatic stress disorder, chronic (principal); F33.41 Major depressive disorder, recurrent, in partial remission; G89.29 Other chronic pain; M25.569 Pain in unspecified knee; Z79.899 Other long term (current) drug therapy | CPT/HCPCS: 99213 ==

== ENCOUNTER 2021-10-27 14:00 | Emergency (ER) | payer MEDICARE, SELFPAY ==
[2021-10-27 14:01] VITALS: BP 89/51; PULSE 52; RESP 20; TEMP 36.7; O2SAT 98
--- NOTE | 2021-10-27 14:11 | W.ED.WEAKNES ---
HPI - Weakness General: Chief complaint: Weakness Stated complaint: WEAK, DIZZY Time Seen by Provider: 10/27/21 14:10 History of Present Illness: Ms. Parker is a 71-year-old lady with complex past medical history including heart failure, atrial fibrillation, chronic hypoxic respiratory failure with COPD, and various others who presents the emergency department due to concern over medication reaction. She reports that about noon today she accidentally took all of her days meds at once. She reported that this caused weakness and lightheadedness that was exacerbated by movement and moderate intensity. Upon clarification however the patient does report that the symptoms have been going on for a number of days. She denies infectious symptoms or worsening shortness of breath. She has had falls with head strike but no loss of consciousness. She additionally endorses bilateral mild to moderate worse with movement hip pains from falls. Overall the course of symptoms today has persisted. Mildly improved with EMS fluids. No other specific changes in health, exacerbating, or alleviating factors identified. Onset (ago): day(s) Duration: progressively worsening Location: generalized Severity: moderate Context: other Review of Systems General: Reports: 10 or more systems reviewed and unremarkable except in HPI and below PFSH ED PFSH: Medical History Anxiety and depression CHF exacerbation Chronic knee pain Chronic low back pain COPD (chronic obstructive pulmonary disease) Oxygen dependent, 2 L at baseline Coronary artery disease COVID-14 August 2020 Duodenal ulcer due to bacteria Fibromyalgia High risk medication use Hyperlipidemia Hypertension Hypothyroidism Immunization counseling Inflammatory arthritis Intermittent atrial fibrillation Because the patient history of frequent fall she was thought to be high risk for bleeding complications. So she is taking only the aspirin at this time. SHE HAS EASY BRUISING WELL Left renal mass Liver cirrhosis Low back pain of over 3 months duration Lung nodule Narrow complex tachycardia Osteoarthritis of knees, bilateral Poorly controlled diabetes mellitus Psychiatric care Recurrent UTI Seronegative rheumatoid arthritis of both hands Unstable angina Urgency incontinence UTI (urinary tract infection) Surgical History History of cardiac cath History of cholecystectomy History of hysterectomy History of knee replacement History of thyroid surgery Family History Other CAD (coronary artery disease) Cancer Denies family history of Anesthesia complication Bleeding disorder Social History Smoking and tobacco status: former smoker Quit status (tobacco): has quit using tobacco Year quit tobacco: 2005 Second hand smoke exposure: No Alcohol intake: never Adopted: No Caregiver/support person: No Lives independently: No Household members: spouse Marital status: Current occupational status: retired History of recent travel: No Current gender identity: Female Female Reproductive History: Date of last menstrual period: 11/18/20 Physical Exam Const: COMMON NORMALS: alert GENERAL APPEARANCE: cooperative, well developed and ill appearing (Chronically) HENMT: COMMON NORMALS: normocephalic and atraumatic HEAD & SCALP: normocephalic and atraumatic THROAT: posterior oropharynx normal Eye: COMMON NORMALS: conjunctivae normal CONJUNCTIVA: Yes conjunctivae normal SCLERA: sclerae normal Neck/C-Spine: COMMON NORMALS: supple GENERAL: Yes trachea midline Resp: COMMON NORMALS: normal respiratory effort EFFORT & INSPECTION: Yes able to speak in complete sentences AUSCULTATION: diminished lung sounds Cardio: COMMON NORMALS: regular rhythm RATE: bradycardic RHYTHM: regular rhythm GI: COMMON NORMALS: Soft to palpation PALPATION: Yes Soft to palpation and No Tenderness to palpation present (GI) PERCUSSION: normal to percussion Extremity: GENERAL: Yes normal exam except as noted and No edema Neuro: COMMON NORMALS: moves all extremities SENSORIUM/ORIENTATION: Yes alert and No Orientation impaired Psych: COMMON NORMALS: mental status grossly normal and Normal thought process present THOUGHT PROCESS: Normal thought process present Course ED course: - Patient was seen and evaluated by me at bedside - Patient placed on cardiac monitors, IV access obtained - Initial evaluation notable for exam as above -IV fluids given - Labs notable for no leukocytosis. Mildly decreased hemoglobin creatinine at baseline. Thrombocytopenia noted. No acute electrolyte derangements on metabolic panel. Delta troponin negative. BNP is mildly elevated. TSH normal. Given squamous epithelial contamination urinalysis is not consistent with urinary tract infection. - Imaging notable for no acute finding noted on CT head or neck. Chest x-ray without evidence of lobar consolidation. Negative hip x-rays. - Upon serial reexamination after treatment the patient was improved - Based on patient history, evaluation, labs, and imaging as interpreted the most likely cause of the patient's condition is unclear, perhaps related to medication error however there is no evidence after prolonged observation period of toxicity that would require hospitalization. - The results of ED evaluation were discussed with the patient including prescriptions and/or symptomatic cares (if applicable) including appropriate and responsible use, followup plan, and return precautions. The patient verbalized understanding and felt safe for discharge. - Patient discharged in satisfactory condition. Note: Click bubbles or prepopulated hatch in note writing are used for assistance with data collection and billing and are inherently more limited than narrative and other text portions of this note. Please use narrative for additional clinical history and defer to narrative/free test for any case of contradictory information. If information appears in only free text or click bubble it should be considered present or absent as reported. Please contact note publications writer for clarifications of clinical information or contradictory information. MDM is a brief summary, contradictory or erroneous seeming information should be clarified and full note should be reviewed. Vital Signs: Vital signs: Vital Signs Temperature 98.0 F 10/27/21 14:01 Pulse Rate 46 L 10/27/21 22:08 Respiratory Rate 20 H 10/27/21 14:01 Blood Pressure 119/58 10/27/21 22:08 Pulse Oximetry 98 10/27/21 14:01 MDM - Weakness Medical Decision Making 71-year-old lady with complex past medical history presenting to the emergency department due to medication error and generalized weakness. Improved with IV fluids and continued to be vitally satisfactory after observation time. Satisfactory for outpatient management with strict return precautions. Medical Records I reviewed the patient's medical records. Lab Data I reviewed the patient's lab results. : 10/27/21 15:35 10/27/21 15:35 Radiology Impressions Cervical Spine CT 10/27/21 14:39 IMPRESSION: No evidence of acute fracture or dislocation. Chest X-Ray 10/27/21 14:39 Impression: Atherosclerosis and cardiomegaly Head CT 10/27/21 14:39 IMPRESSION: 1. No evidence of intracranial hemorrhage or mass effect. 2. Moderate small vessel changes. Moderate parenchymal volume loss. 3. No acute intracranial findings. Hip/Pelvis X-Ray 10/27/21 14:39 Impression: Negative pelvis and both hips. Laboratory Results WBC 4.9 10^3/uL (4.0-10.0) 10/27/21 15:35 RBC 2.67 10^6/uL (4.1-5.3) L 10/27/21 15:35 Hgb 8.8 g/dL (11.5-15.3) L 10/27/21 15:35 Hct 26.9 % (37.0-47.0) L 10/27/21 15:35 MCV 100.7 fl (81-99) H 10/27/21 15:35 MCH 33.0 pg (28.0-34.0) 10/27/21 15:35 MCHC 32.7 g/dL (30.0-36.0) 10/27/21 15:35 RDW 14.7 % (12.1-15.1) 10/27/21 15:35 Plt Count 116 10^3/cmm (130-400) L 10/27/21 15:35 MPV 10.2 fL (7.4-10.4) 10/27/21 15:35 Neut % (Auto) 67.4 % 10/27/21 15:35 Lymph % (Auto) 20.8 % 10/27/21 15:35 [place] % (Auto) 9.6 % 10/27/21 15:35 Eos % (Auto) 1.0 % 10/27/21 15:35 Baso % (Auto) 0.8 % 10/27/21 15:35 Neut # (Auto) 3.30 10^3/uL (1.8-7.7) 10/27/21 15:35 Lymph # (Auto) 1.0 10^3/uL (0.8-4.8) 10/27/21 15:35 [place] # (Auto) 0.5 10^3/uL (0.2-0.9) 10/27/21 15:35 Eos # (Auto) 0.1 10^3/uL (0.0-0.8) 10/27/21 15:35 Baso # (Auto) 0.0 10^3/uL (0.0-0.1) 10/27/21 15:35 Nucleated RBC % (auto) 0 % 10/27/21 15:35 Nucleated RBCs # 0.0 /100WBC 10/27/21 15:35 Sodium 138 mmol/L (136-145) 10/27/21 15:35 Potassium 4.5 mmol/L (3.5-5.1) 10/27/21 15:35 Chloride 100 mmol/L (98-107) 10/27/21 15:35 Carbon Dioxide 29 mmol/L (22-29) 10/27/21 15:35 Anion Gap 13.5 (5-19) 10/27/21 15:35 BUN 35 mg/dL (8-23) H 10/27/21 15:35 Creatinine 1.4 mg/dL (0.5-0.9) H 10/27/21 15:35 GFR Calculation Not Reportable 10/27/21 15:35 Glucose 266 mg/dL (65-115) H 10/27/21 15:35 POC Glucose 204 mg/dL (70-110) H 10/27/21 22:06 Calculated Osmolality 303 mOsm/kg (285-295) H 10/27/21 15:35 Calcium 8.7 mg/dL (8.5-10.5) 10/27/21 15:35 Magnesium 1.8 mg/dL (1.7-2.3) 10/27/21 15:35 Total Bilirubin 0.3 mg/dL (0.15-1.2) 10/27/21 15:35 AST 28 U/L (0-32) 10/27/21 15:35 ALT 24 U/L (0-33) 10/27/21 15:35 Alkaline Phosphatase 91 IU/L (35-105) 10/27/21 15:35 Troponin T Baseline 31 ng/L (0-10) H 10/27/21 15:35 Troponin T 120 Minute 26.64 ng/L (0-10) H 10/27/21 17:51 Delta Troponin T -4.36 ABS# (0-10) L 10/27/21 17:51 C-Reactive Protein 6.5 mg/L (0.0-4.9) H 10/27/21 15:35 NT-Pro-B Natriuret Pep 1209 pg/mL (0-125) H 10/27/21 15:35 Total Protein 5.6 g/dL (6.6-8.7) L 10/27/21 15:35 Albumin 3.6 g/dL (3.5-5.2) 10/27/21 15:35 Globulin 2.0 g/dL (1.3-4.6) 10/27/21 15:35 Procalcitonin 0.09 ng/mL (0-0.5) 10/27/21 15:35 TSH 1.84 uIU/mL (0.27-4.20) 10/27/21 15:35 Urine Color Yellow (Yellow) 10/27/21 20:26 Urine Appearance Clear (CLEAR) 10/27/21 20:26 Urine pH 5 (5-7) 10/27/21 20:26 Ur Specific [place] 1.015 (1.005-1.030) 10/27/21 20:26 Urine Protein Trace (Negative) 10/27/21 20:26 Urine Glucose (UA) Norm (Normal) 10/27/21 20:26 Urine Ketones Negative (Negative) 10/27/21 20: Urine Blood Neg (Negative) 10/27/21 20: Urine Nitrate Negative (Negative) 10/27/21 20: Urine Bilirubin 1+ (Negative) H 10/27/21 20:26 Urine Urobilinogen Norm mg/dL (Negative) 10/27/21 20:26 Ur Leukocyte Esterase 2+ (Negative) H 10/27/21 20:26 Urine RBC 0-4 /hpf (0-2) H 10/27/21 20:26 Urine WBC 15-25 /hpf (0-5) H 10/27/21 20:26 Ur Squamous Epith Cells 40-55 /hpf (0-5) H 10/27/21 20:26 Ur Renal Epithelial Cell 0-4 /hpf 10/27/21 20:26 Amorphous Sediment Not Reportable 10/27/21 20:26 Urine Bacteria Trace /hpf (NONE) 10/27/21 20:26 Hyaline Casts 0-4 /lpf H 10/27/21 20:26 Influenza Type A Ag Negative (Negative) 10/27/21 20:26 Influenza Type B Ag Negative (Negative) 10/27/21 20:26 SARS-CoV-2 Ag (Rapid) Negative (Negative) 10/27/21 20:26 EKG Data EKG 2: I personally reviewed and interpreted this EKG as follows: EKG interpretation date: 10/27/21 EKG interpretation time: 18:40 Interpretation: Twelve-lead EKG shows a regular rhythm at a rate of 49. DC interval 274, QRS duration 166, QTc 429. Left axis deviation. Interpretation: Sinus rhythm. Right bundle branch block. Nonspecific ST segment abnormalities. Bradycardia. First-degree AV block. EKG 1: I personally reviewed and interpreted this EKG as follows: EKG interpretation date: 10/27/21 EKG interpretation time: 15:13 Interpretation: Twelve-lead EKG shows a regular rhythm at a rate of 49. DC interval 262, QRS duration 154, QTc 412. Left axis deviation. Interpretation: Sinus rhythm. First-degree AV block. Right bundle branch block. Bradycardia. Nonspecific ST segment abnormalities Discharge Plan Discharge Patient Disposition: Home Clinical Impression: Dehydration, Weakness, Anemia, Light-headed feeling, Medication error, Thrombocytopenia Condition: Stable Prescriptions: No Action Humira Pen 40 mg/0.8 mL pen injector kit 40 mg SUBCUT Q14D Qty: 2 3RF Hold Instructions: Resume on 08/02/21. Rx Instructions: TAKES ON SATURDAYS EVERY 14 DAYS methotrexate sodium 2.5 mg tablet 7.5 mg PO Q7D Qty: 15 3RF Rx Instructions: ON SATURDAYS duloxetine 60 mg capsule,delayed release(DR/EC) 60 mg PO DAILY@08 Qty: 90 0RF Rx Instructions: Take one capsule by mouth every morning folic acid 1 mg tablet 1 mg PO DAILY@08 Qty: 90 1RF nitroglycerin [Nitrostat] 0.4 mg tablet, sublingual 0.4 mg SUBLINGUAL Q5M PRN (Reason: Chest Pain) Qty: 30 3RF Rx Instructions: MAX 3 DOSES PER EPISODE hydrocodone-acetaminophen 7.5-325 mg tablet 1 tab PO TID PRN (Reason: pain) 30 Days Qty: 90 0RF tizanidine 4 mg tablet 4 mg PO TID PRN (Reason: muscle spasticity) 30 Days Qty: 90 1RF levothyroxine [Euthyrox] 150 mcg tablet 150 mcg PO QAM 0RF calcium carbonate [Calcium 600] 600 mg calcium (1,500 mg) tablet 600 mg PO DAILY 0RF methylsulfonylmethane [MSM] 1,000 mg tablet 1,000 mg PO BID 0RF acetaminophen [Arthritis Pain Reliever] 650 mg Tablet Extended Release 650 mg PO Q4H PRN (Reason: Pain) 0RF cholecalciferol (vitamin D3) [Vitamin D3] 25 mcg (1,000 unit) Tablet 2,000 unit PO DAILY@08 0RF albuterol sulfate 2.5 mg /3 mL (0.083 %) Solution For Nebulization 2.5 mg inhalation TID PRN (Reason: Shortness Of Breath) 0RF Novolin 70/30 U-100 Insulin 100 unit/mL (70-30) suspension See Rx Instructions .ROUTE .COMPLEX 0RF Rx Instructions: 55 units subcutaneously qam and 35 units qpm albuterol sulfate 90 mcg/actuation Hfa Aerosol Inhaler 2 puff INHALATION Q6H PRN (Reason: Shortness Of Breath) 0RF docusate sodium [Stool Softener] 250 mg Capsule 250 mg PO BEDTIME 0RF cyanocobalamin (vitamin B-12) [Vitamin B-12] 500 mcg Tablet 500 mcg PO DAILY 0RF chlorpheniramine maleate [ChlorTabs] 4 mg Tablet See Rx Instructions .ROUTE .COMPLEX 0RF Rx Instructions: 4 mg orally TID THEN ALTERNATES WITH BENADRYL THEN NEXT DAY prednisolone acetate 1 % Drops,Suspension 1 drp ophthalmic (eye) PRN 0RF Rx Instructions: IN RIGHT EYE diphenhydramine HCl [Benadryl] 25 mg Capsule See Rx Instructions .ROUTE .COMPLEX 0RF Rx Instructions: 25MG PO TID THEN ALTERNATES WITH CHLORTAB THE NEXT DAY pyridostigmine bromide 60 mg Tablet 30 mg PO BID Qty: 60 4RF metoprolol tartrate 50 mg Tablet 100 mg PO BID@0900,2100 Qty: 60 3RF atorvastatin 80 mg tablet 80 mg PO BEDTIME 0RF lisinopril 40 mg tablet 40 mg PO QPM 0RF digoxin 125 mcg (0.125 mg) tablet See Rx Instructions .ROUTE .COMPLEX 0RF Rx Instructions: ALTERNATE 1/2 TABLET DAILY WITH 1 TABLET DAILY ferrous gluconate 324 mg (37.5 mg iron) tablet See Rx Instructions .ROUTE .COMPLEX 0RF Rx Instructions: ALTERNATE 1 TABLET DAILY WITH 2 TABLETS DAILY magnesium L-lactate 84 mg tablet extended release 84 mg PO BID 0RF ferrous sulfate [FeroSul] 325 mg (65 mg iron) tablet See Rx Instructions .ROUTE .COMPLEX 0RF Rx Instructions: 325mg po on sun,mon,wed and fri furosemide 20 mg tablet 10 mg PO EVERY OTHER DAY 0RF insulin lispro 100 unit/mL insulin pen See Rx Instructions .ROUTE .COMPLEX 0RF Rx Instructions: SLIDING SCALE before meals AND BEDTIME-MAX OF 40 UNITS PER DAY 150-200= 0 units 201-250= 2 units 251-300= 4 units 301-350= 6 units 351-400= 8 units sulfasalazine 500 mg tablet 500 mg PO BID@08,17 0RF prednisone 2.5 mg tablet 2.5 mg PO QAM 0RF diltiazem HCl 120 mg capsule,extended release 24hr 120 mg PO QAM 0RF potassium chloride 20 mEq tablet extended release 20 meq PO BID 0RF tramadol 50 mg tablet 50 mg PO TID 0RF pantoprazole 40 mg tablet,delayed release (DR/EC) 40 mg PO BID 0RF Discharge Orders: Discharge ED (Routine); Ordered 10/27/21 Ordered By: Joby Adame Referrals: Davion Griggs MD [Primary Care Provider] - Discharge Diet: Usual diet Discharge Activity: Resume usual activity Patient Instructions: Weakness (ED), Lightheadedness (ED), Medication Safety for Older Adults (ED) Activity Restrictions/Additional Instructions: Thank you for visiting the emergency department. You were seen and evaluated for lightheadedness and weakness. The exact cause of your symptoms is unclear though may be related to dehydration or mild medication reaction. Based on ED evaluation I do not believe that you require further inpatient management. Please follow-up with your primary care provider. Please be cautious regarding your medications. Please return to the emergency department for worsening symptoms or anything else that you are concerned about and feel needs emergency department evaluation. Coding Level of Care Code ED Bench Lay Out Technician for Dougie Samson Exam Comprehensive
--- NOTE | 2021-10-27 14:39 | XR_ITS ---
WS: [id number] Portable AP upright chest, 10/27/2021 Clinical Data: hypotension, weakness Comparison: Portable chest, 09/13/2021. Findings: No nodules, masses or effusions are seen. The heart is lightly enlarged. The pulmonary vasc ularity is not increased. No pneumonia or pneumothorax is seen. The aortic arch and descending thorac ic aorta show tortuosity. The patient is rotated. XR/XR chest 1V portable [id number] Impression: Atherosclerosis and cardiomegaly
--- NOTE | 2021-10-27 14:39 | CT_ITS ---
WS: [id number] CT HEAD TECHNIQUE: Noncontrast CT of the head obtained from the skullbase to the vertex. CLINICAL INFORMATION: falls, dizzy COMPARISON: October 04, 2021 DLP: 852.[address] scans at [facility] use at least one of these dose optimization techniques: automated e xposure control; mA and/or kV adjustment per patient size (includes targeted exams where dose is matc hed to clinical indication); or iterative reconstruction. FINDINGS: No evidence of intracranial hemorrhage or mass effect. Ventricular system and basal cisterns are boyle nt. Moderate small vessel changes with moderate parenchymal volume loss. No extra-axial fluid collect ions. Tiny chronic lacunar infarcts bilateral caudate. No evidence of mass or mass effect. Normal gra y-white differentiation. Paranasal sinuses and mastoid air cells are well aerated. .Normal visualized soft tissues. CT/CT head wo con* [id number] IMPRESSION: 1. No evidence of intracranial hemorrhage or mass effect. 2. Moderate small vessel changes. Moderate parenchymal volume loss. 3. No acute intracranial findings.
--- NOTE | 2021-10-27 14:39 | XR_ITS ---
WS: [email or web address] AP pelvis, 2 views of each hip, 10/27/2021 Clinical Data: falls, pain Comparison: Left hip, 06/22/2021, AP pelvis, 05/27/2021. Findings: The pelvis is intact. The SI joints and pubic symphysis are unremarkable. Both hips show no fractures or dislocations. No erosion, sclerosis, cyst formation or fragmentation of the femoral heads is seen . XR/XR hip BI 3-4V wo/w pel [id number] Impression: Negative pelvis and both hips.
--- NOTE | 2021-10-27 14:39 | CT_ITS ---
WS: [id number] CT CERVICAL TRAUMA TECHNIQUE: Noncontrast CT of the cervical spine with coronal and sagittal reformatted images. CLINICAL INFORMATION: falls COMPARISON: October 04, 2021 DLP: 731.[address] scans at [facility] use at least one of these dose optimization techniques: automated e xposure control; mA and/or kV adjustment per patient size (includes targeted exams where dose is matc hed to clinical indication); or iterative reconstruction. FINDINGS: Straightening of the normal cervical lordosis. Moderate spondylitic changes. Disc space narrowing wor se at C4-C6. No high-grade central canal stenosis. Anterior hypertrophic changes mid cervical spine. Normal craniocervical junction. Normal C1-C2 articulation. Dens is normal in appearance. Normal occip ital condyles. Normal C1 ring. No evidence of acute fracture or dislocation. Normal prevertebral soft tissues. Mastoids air cells are well aerated. CT/CT cervical spin wo con* [id number] IMPRESSION: No evidence of acute fracture or dislocation.
--- NOTE | 2021-10-27 14:40 | ECG_ITS ---
[facility] Test Date: 2021-10-27 Pat Name: Myesha Parker Department: Room: Gender: Female Small Animal Caretaker: : 1950 Requested By: Joby Adame Order Number: [id number] Wilbur MD: Keisha Coronel M.D. Measurements Intervals [place] Rate: 49 P: 18 [place]: 262 QRS: -52 QRSD: 154 T: 98 QT: 441 QTc: 401 Interpretive Statements SINUS BRADYCARDIA WITH FIRST DEGREE AV BLOCK RIGHT BUNDLE BRANCH BLOCK [120+ ms QRS DURATION, UPRIGHT V1, 40+ ms S IN I/aVL/V4/V5/V6] LEFT ANTERIOR FASCICULAR BLOCK [QRS AXIS <= -45, QR IN I, RS IN II] LEFT VENTRICULAR HYPERTROPHY AND ST-T CHANGE [VOLTAGE CRITERIA PLUS ST/T ABNORMALITY] POSSIBLE SEPTAL MYOCARDIAL INFARCTION , OF INDETERMINATE AGE [30 ms Q WAVE IN V1/V2] Compared to ECG 09/13/2021 18:43:00 First degree AV block now present Atrial flutter no longer present ST (T wave) deviation still present Myocardial infarct finding still present Electronically Signed On 10-27-2021 17:47:43 BIOCHEMISTRY PROFESSOR by Keisha Coronel M.D. [id number]
[2021-10-27 16:04] LABS: Basophils % 0.8 %; Eosinophils # 0.1 10^3/uL (0.0-0.8); Hematocrit 26.9 % (37.0-47.0); Hemoglobin 8.8 g/dL (11.5-15.3); Lymphocytes % 20.8 %; Mean Corpuscular HGB Conc 32.7 g/dL (30.0-36.0); Mean Corpuscular Volume 100.7 fl (81-99); Mean Platelet Volume 10.2 fL (7.4-10.4); Monocytes # 0.5 10^3/uL (0.2-0.9); Monocytes % 9.6 %; Neutrophils % 67.4 %; Nucleated Red Blood Cells % 0 %; Platelet Count 116 10^3/cmm (130-400); Red Blood Count 2.67 10^6/uL (4.1-5.3); Red Cell Distribution Width 14.7 % (12.1-15.1); White Blood Count 4.9 10^3/uL (4.0-10.0)
[2021-10-27 16:24] LABS: Slide Review Slide Review Perform
[2021-10-27 16:29] LABS: Troponin(5th) Baseline 31 ng/L (0-10)
[2021-10-27 16:36] LABS: NT Pro B Type Natriuretic Pept 1209 pg/mL (0-125); Procalcitonin 0.09 ng/mL (0-0.5); Thyroid Stimulating Hormone 1.84 uIU/mL (0.27-4.20)
[2021-10-27 16:52] LABS: Alanine Aminotransferase 24 U/L (0-33); Albumin Level 3.6 g/dL (3.5-5.2); Alkaline Phosphatase 91 IU/L (35-105); Aspartate Amino Transferase 28 U/L (0-32); Blood Urea Nitrogen 35 mg/dL (8-23); C Reactive Protein 6.5 mg/L (0.0-4.9); Calcium 8.7 mg/dL (8.5-10.5); Carbon Dioxide 29 mmol/L (22-29); Chloride 100 mmol/L (98-107); Glucose 266 mg/dL (65-115); Magnesium 1.8 mg/dL (1.7-2.3); Osmolality Calculated 303 mOsm/kg (285-295); Sodium 138 mmol/L (136-145); Total Bilirubin 0.3 mg/dL (0.15-1.2); Total Protein 5.6 g/dL (6.6-8.7)
[2021-10-27 16:54] LABS: Anion Gap 13.5 (5-19); Potassium 4.5 mmol/L (3.5-5.1)
[2021-10-27 18:52] LABS: Troponin 5 2HR 26.64 ng/L (0-10); Troponin 5 2HR Delta -4.36 ABS# (0-10)
--- NOTE | 2021-10-27 20:16 | PC.NURSE ---
Pt performed poorly during ambulation trial, only able to take a few steps before becoming unsteady on her feet. Result reported to Dr. Adame.
[2021-10-27] MEDS: sodium chloride 0.9% 1,000 ML 999 ML IV (20:30)
--- NOTE | 2021-10-27 20:40 | ECG_ITS ---
[facility] Test Date: 2021-10-27 Pat Name: Myesha Parker Department: Room: Gender: Female Tail Edger: : 1950 Requested By: Joby Adame Order Number: [id number] Wilbur MD: Lucia Oakley M.D. Measurements Intervals [place] Rate: 49 P: 7 IA: 274 QRS: -52 QRSD: 166 T: 40 QT: 461 QTc: 416 Interpretive Statements SINUS BRADYCARDIA WITH FIRST DEGREE AV BLOCK RIGHT BUNDLE BRANCH BLOCK LEFT ANTERIOR FASCICULAR BLOCK POSSIBLE LEFT VENTRICULAR HYPERTROPHY POSSIBLE SEPTAL MYOCARDIAL INFARCTION , OF INDETERMINATE AGE Compared to ECG 10/27/2021 15:10:07 ST (T wave) deviation no longer present Myocardial infarct finding still present Electronically Signed On 10-29-2021 9:07:45 RESTAURANT SUPERVISOR by Lucia Oakley M.D. [id number]
[2021-10-27 21:01] LABS: Influenza A by IFA Negative (Negative); Influenza B by IFA Negative (Negative); SARS Covid-2 Antigen Negative (Negative)
[2021-10-27 21:28] LABS: Add Urine Culture? No; Add Urine Microscopic? YES; Bacteria Urine TRACE /hpf; Bilirubin Urine 1+ (Negative); Blood Urine Neg (Negative); Glucose Urine UA Norm (Normal); Hyaline Casts Urine 0-4 /lpf; Ketones Urine Negative (Negative); Leukocyte Esterase Urine 2+ (Negative); Nitrate Urine Negative (Negative); Protein Urine Trace (Negative); RBC Urine 0-4 /hpf (0-2); Renal Epithelial Cells Urine 0-4 /hpf; Specific Gravity, Urine 1.015 (1.005-1.030); Squamous Epithelial Cell Urine 40-55 /hpf (0-5); Urine Appearance Clear (CLEAR); Urine Color Yellow (Yellow); Urobilinogen Urine Norm (Negative); WBC Urine 15-25 /hpf (0-5); pH Urine 5 (5-7)
[2021-10-27 22:08] VITALS: BP 114/55; BP 119/58; BP 132/46; PULSE 46; PULSE 50; PULSE 54
[2021-10-28 00:47] LABS: Glucose Point of Care 204 mg/dL (70-110)
== END 2021-10-27 22:44 | disposition home or self-care (01) ==
PROVIDERS: Emergency Provider Emergency Medicine; PCP Family Medicine
DX: D64.9 Anemia, unspecified (principal); R53.1 Weakness; E86.0 Dehydration; R42 Dizziness and giddiness; D69.6 Thrombocytopenia, unspecified; T50.911A Poisoning by multiple unspecified drugs, medicaments and biological substances, accidental (unintentional), initial encounter; I11.0 Hypertensive heart disease with heart failure; I50.9 Heart failure, unspecified; J44.9 Chronic obstructive pulmonary disease, unspecified; Z99.81 Dependence on supplemental oxygen; I25.10 Atherosclerotic heart disease of native coronary artery without angina pectoris; E78.5 Hyperlipidemia, unspecified; Z87.891 Personal history of nicotine dependence; Z20.822 Contact with and (suspected) exposure to COVID-19
CPT/HCPCS: 36416; 70450; 71045; 72125; 73522; 80053; 81001; 82962; 83735; 83880; 84145; 84443; 84484; 85025; 86140; 87426; 87804; 93005; 96360; 99284; J7030

== ENCOUNTER 2021-11-03 22:49 | Emergency (ER) | payer MEDICARE, SELFPAY ==
[2021-11-03 22:54] VITALS: BP 157/79; PULSE 64; RESP 18; TEMP 36.6; O2SAT 98; BMI 35.7
--- NOTE | 2021-11-03 22:54 | XRR_ITS ---
PROCEDURE INFORMATION: Exam: XR Chest Exam date and time: 11/03/2021 10:54 PM Age: 71 years old Clinical indication: Injury or trauma; Blunt trauma (contusions or hematomas); Prior surgery; Surgery type: Gb; Patient HX: Fall at home. History of copd. TECHNIQUE: Imaging protocol: XR of the chest. Views: 1 view. COMPARISON: CR (CHEST, ) 06/07/2021 6:21 PM FINDINGS: Lungs: Left lower lobe atelectasis versus minimal infiltrate. Pleural spaces: Unremarkable. No pleural effusion. No pneumothorax. Heart/Mediastinum: Cardiomegaly. Bones/joints: Unremarkable. Other findings: Patient rotated. XR/XR chest 1V portable [id number] IMPRESSION: 1. Patient rotated. 2. Cardiomegaly. 3. Left lower lobe atelectasis versus minimal infiltrate.
--- NOTE | 2021-11-03 22:54 | CTR_ITS ---
PROCEDURE INFORMATION: Exam: CT Head Without Contrast Exam date and time: 11/03/2021 10:54 PM Age: 71 years old Clinical indication: Injury or trauma; Fall; Blunt trauma (contusions or hematomas); Patient HX: Patient fell onto floor at home and states she hit her head. Acting lethargic. TECHNIQUE: Imaging protocol: Computed tomography of the head without contrast. Radiation optimization: All CT scans at this facility use at least one of these dose optimization techniques: automated exposure control; mA and/or kV adjustment per patient size (includes targeted exams where dose is matched to clinical indication); or iterative reconstruction. COMPARISON: CT head wo con* [id number] 10/27/2021 3:24 PM RADIATION DOSE METRICS: Total DLP (mGy-cm): 797.8 FINDINGS: Brain: Moderate diffuse white matter disease likely reflecting chronic microvascular ischemic changes. Cerebral ventricles: No ventriculomegaly. Paranasal sinuses: Visualized sinuses are unremarkable. No fluid levels. Mastoid air cells: Visualized mastoid air cells are well aerated. Bones/joints: Unremarkable. No acute fracture. Soft tissues: Unremarkable. CT/CT head wo con* [id number] IMPRESSION: Negative for intracranial hemorrhage or mass effect
--- NOTE | 2021-11-03 22:55 | ECG_ITS ---
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 Measurements Intervals [place] Rate: 60 P: 8 [place]: 241 QRS: -64 QRSD: 154 T: 11 QT: 484 QTc: 487 Interpretive Statements SINUS RHYTHM WITH FIRST DEGREE AV BLOCK RIGHT BUNDLE BRANCH BLOCK [120+ ms QRS DURATION, UPRIGHT V1, 40+ ms S IN I/aVL/V4/V5/V6] LEFT ANTERIOR FASCICULAR BLOCK [QRS AXIS <= -45, QR IN I, RS IN II] VOLTAGE CRITERIA FOR LVH [MEETS CRITERIA IN ONE OF: R(aVL), S(V1), R(V5), R(V5/V6)+S(V1)] POSSIBLE SEPTAL MYOCARDIAL INFARCTION , OF INDETERMINATE AGE [30 ms Q WAVE IN V1/V2] MODERATE T-WAVE ABNORMALITY, CONSIDER LATERAL ISCHEMIA [-0.1+ mV T-WAVE IN I/aVL/V5/V6] Compared to ECG 10/27/2021 18:32:32 T-wave abnormality now present Possible ischemia now present Sinus bradycardia no longer present Myocardial infarct finding still present Electronically Signed On 11-06-2021 15:50:25 CDT by Victoriano White M.D. [id number]
--- NOTE | 2021-11-03 23:03 | W.ED.FALL ---
HPI - Fall General: Chief Complaint: Fall Stated Complaint: WEAKNESS/AMS Time Seen by Provider: 11/03/21 22:50 Source: patient and EMS Mode of arrival: EMS Limitations: no limitations History of Present Illness: 71-year-old female presents here by EMS for a fall. Patient is very well-known to the ER has frequent falls. Her works nights and stays at home at night states she got up tonight felt weak and fell. Here she is awake and alert able answer all my questions appropriately states she did hit her head when she fell she denies any other injuries. She had no vomiting no diarrhea. She denies any recent fevers. Associated symptoms-after fall: Denies abdominal pain, chest pain, headache(s) or neck pain Review of Systems Const: Denies: fever(s), chills, body aches or change in appetite Eyes: Denies: blurry vision or eye discomfort ENMT: Denies: throat pain or dental pain Card: Denies: chest pain Resp: Denies: dyspnea GI: Denies: abdominal pain, nausea, vomiting or diarrhea : Denies: dysuria Musc: Denies: neck pain or back pain Skin/Breast: Denies: rash Neuro: Denies: headache(s) Psych: Denies: depression [place]/Lymph: Denies: easy bruising All/Imm: Denies: urticaria PFSH ED PFSH: Medical History Anxiety and depression CHF exacerbation Chronic knee pain Chronic low back pain COPD (chronic obstructive pulmonary disease) Oxygen dependent, 2 L at baseline Coronary artery disease COVID-14 August 2020 Duodenal ulcer due to bacteria Fibromyalgia High risk medication use Hyperlipidemia Hypertension Hypothyroidism Immunization counseling Inflammatory arthritis Intermittent atrial fibrillation Because the patient history of frequent fall she was thought to be high risk for bleeding complications. So she is taking only the aspirin at this time. SHE HAS EASY BRUISING WELL Left renal mass Liver cirrhosis Low back pain of over 3 months duration Lung nodule Narrow complex tachycardia Osteoarthritis of knees, bilateral Poorly controlled diabetes mellitus Psychiatric care Recurrent UTI Seronegative rheumatoid arthritis of both hands Unstable angina Urgency incontinence UTI (urinary tract infection) Surgical History History of cardiac cath History of cholecystectomy History of hysterectomy History of knee replacement History of thyroid surgery Family History Other CAD (coronary artery disease) Cancer Denies family history of Anesthesia complication Bleeding disorder Social History Smoking and tobacco status: former smoker Quit status (tobacco): has quit using tobacco Year quit tobacco: 2005 Second hand smoke exposure: No Alcohol intake: never Adopted: No Caregiver/support person: No Lives independently: No Household members: spouse Marital status: Current occupational status: retired History of recent travel: No Current gender identity: Female Female Reproductive History: Date of last menstrual period: 11/18/20 Physical Exam Const: COMMON NORMALS: no acute distress, patient oriented x3 and healthy appearing HENMT: COMMON NORMALS: normocephalic and atraumatic HEAD & SCALP: normocephalic and atraumatic Eye: COMMON NORMALS: Equal, round and reactive pupils present and EOMs intact bilaterally PUPIL: Yes Equal, round and reactive pupils present Neck/C-Spine: COMMON NORMALS: full ROM and supple Chest: COMMONS NORMALS: normal inspection of the chest and normal palpation of entire chest wall Resp: COMMON NORMALS: normal respiratory effort, No retractions, No use of accessory muscles and clear to auscultation bilaterally AUSCULTATION: clear to auscultation bilaterally Cardio: COMMON NORMALS: regular rate, regular rhythm and No murmurs present (Cardio) RATE: regular rate RHYTHM: regular rhythm GI: COMMON NORMALS: Normal to inspection, nondistended, normoactive bowel sounds present, Soft to palpation, non-tender and no masses PALPATION: Yes Soft to palpation Extremity: COMMON NORMALS: normal to inspection and full ROM Neuro: COMMON NORMALS: patient oriented x3, moves all extremities and no focal motor deficits Psych: COMMON NORMALS: mental status grossly normal, Normal thought process present and cooperative THOUGHT PROCESS: Normal thought process present Skin: COMMON NORMALS: no rashes or lesions noted and no wounds GENERAL SKIN EXAM: no rashes or lesions noted Course Vital Signs: Vital signs: Vital Signs Temperature 97.8 F 11/03/21 22:54 Pulse Rate 64 11/03/21 22:54 Respiratory Rate 18 11/03/21 22:54 Blood Pressure 157/79 11/03/21 22:54 Pulse Oximetry 98 11/03/21 22:54 MDM - Fall Medical Decision Making Patient presents here with generalized weakness and a fall she has been well-appearing here able ambulate here head CT blood work is all normal patient's is here will discharge with him. Lab Data : 11/03/21 23:42 11/03/21 23:42 Radiology Impressions Chest X-Ray 11/03/21 22:54 IMPRESSION: 1. Patient rotated. 2. Cardiomegaly. 3. Left lower lobe atelectasis versus minimal infiltrate. Head CT 11/03/21 22:54 IMPRESSION: Negative for intracranial hemorrhage or mass effect Laboratory Results WBC 6.9 10^3/uL (4.0-10.0) 11/03/21 23: RBC 3.13 10^6/uL (4.1-5.3) L 11/03/21 23:42 Hgb 10.4 g/dL (11.5-15.3) L 11/03/21 23:42 Hct 31.6 % (37.0-47.0) L 11/03/21 23:42 MCV 101.0 fl (81-99) H 11/03/21 23:42 MCH 33.2 pg (28.0-34.0) 11/03/21 23:42 MCHC 32.9 g/dL (30.0-36.0) 11/03/21 23:42 RDW 14.5 % (12.1-15.1) 11/03/21 23:42 Plt Count 194 10^3/cmm (130-400) 11/03/21 23:42 MPV 9.3 fL (7.4-10.4) 11/03/21 23:42 Neut % (Auto) 68.9 % 11/03/21 23:42 Lymph % (Auto) 19.4 % 11/03/21 23:42 Starr % (Auto) 10.1 % 11/03/21 23:42 Eos % (Auto) 0.3 % 11/03/21 23:42 Baso % (Auto) 0.6 % 11/03/21 23:42 Neut # (Auto) 4.75 10^3/uL (1.8-7.7) 11/03/21 23:42 Lymph # (Auto) 1.3 10^3/uL (0.8-4.8) 03/10/22 23:42 Starr # (Auto) 0.7 10^3/uL (0.2-0.9) 11/03/21 23:42 Eos # (Auto) 0.0 10^3/uL (0.0-0.8) 11/03/21 23:42 Baso # (Auto) 0.0 10^3/uL (0.0-0.1) 11/03/21 23:42 Nucleated RBC % (auto) 0.3 % 11/03/21 23:42 Nucleated RBCs # 0.0 /100WBC 11/03/21 23:42 Sodium 138 mmol/L (136-145) 11/03/21 23:42 Potassium 3.6 mmol/L (3.5-5.1) 11/03/21 23:42 Chloride 96 mmol/L (98-107) L 11/03/21 23:42 Carbon Dioxide 29 mmol/L (22-29) 11/03/21 23:42 Anion Gap 16.6 (5-19) 11/03/21 23:42 BUN 20 mg/dL (8-23) 11/03/21 23:42 Creatinine 1.3 mg/dL (0.5-0.9) H 11/03/21 23:42 GFR Calculation Not Reportable 11/03/21 23:42 Glucose 242 mg/dL (65-115) H 11/03/21 23:42 Calculated Osmolality 297 mOsm/kg (285-295) H 11/03/21 23:42 Calcium 10.1 mg/dL (8.5-10.5) 11/03/21 23:42 Total Bilirubin 0.5 mg/dL (0.15-1.2) 11/03/21 23:42 AST 24 U/L (0-32) 11/03/21 23:42 ALT 26 U/L (0-33) 11/03/21 23:42 Alkaline Phosphatase 83 IU/L (35-105) 11/03/21 23:42 Total Protein 6.6 g/dL (6.6-8.7) 11/03/21 23:42 Albumin 3.9 g/dL (3.5-5.2) 11/03/21 23:42 Globulin 2.7 g/dL (1.3-4.6) 11/03/21 23:42 Discharge Plan Discharge Patient Disposition: Home Clinical Impression: Multiple falls, Weakness Condition: Stable Prescriptions: No Action Humira Pen 40 mg/0.8 mL pen injector kit 40 mg SUBCUT Q14D Qty: 2 3RF Hold Instructions: Resume on 08/02/21. Rx Instructions: TAKES ON SATURDAYS EVERY 14 DAYS methotrexate sodium 2.5 mg tablet 7.5 mg PO Q7D Qty: 15 3RF Rx Instructions: ON SATURDAYS duloxetine 60 mg capsule,delayed release(DR/EC) 60 mg PO DAILY@08 Qty: 90 0RF Rx Instructions: Take one capsule by mouth every morning folic acid 1 mg tablet 1 mg PO DAILY@08 Qty: 90 1RF nitroglycerin [Nitrostat] 0.4 mg tablet, sublingual 0.4 mg SUBLINGUAL Q5M PRN (Reason: Chest Pain) Qty: 30 3RF Rx Instructions: MAX 3 DOSES PER EPISODE hydrocodone-acetaminophen 7.5-325 mg tablet 1 tab PO TID PRN (Reason: pain) 30 Days Qty: 90 0RF Rx Instructions: fill on or after 07/20/21 tizanidine 4 mg tablet 4 mg PO TID PRN (Reason: muscle spasticity) 30 Days Qty: 90 1RF levothyroxine [Euthyrox] 150 mcg tablet 150 mcg PO QAM 0RF calcium carbonate [Calcium 600] 600 mg calcium (1,500 mg) tablet 600 mg PO DAILY 0RF methylsulfonylmethane [MSM] 1,000 mg tablet 1,000 mg PO BID 0RF lisinopril 40 mg tablet 40 mg PO QPM Qty: 90 1RF atorvastatin [Lipitor] 40 mg Tablet 40 mg PO BEDTIME 0RF Hold Instructions: Resume on 08/22/21. acetaminophen [Arthritis Pain Reliever] 650 mg Tablet Extended Release 650 mg PO Q4H PRN (Reason: Pain) 0RF cholecalciferol (vitamin D3) [Vitamin D3] 25 mcg (1,000 unit) Tablet 2,000 unit PO DAILY@08 0RF albuterol sulfate 2.5 mg /3 mL (0.083 %) Solution For Nebulization 2.5 mg inhalation TID PRN (Reason: Shortness Of Breath) 0RF Novolin 70/30 U-100 Insulin 100 unit/mL (70-30) suspension See Rx Instructions .ROUTE .COMPLEX 0RF Rx Instructions: 55 units subcutaneously qam and 35 units qpm albuterol sulfate 90 mcg/actuation Hfa Aerosol Inhaler 2 puff INHALATION Q6H PRN (Reason: Shortness Of Breath) 0RF docusate sodium [Stool Softener] 250 mg Capsule 250 mg PO BEDTIME 0RF cyanocobalamin (vitamin B-12) [Vitamin B-12] 500 mcg Tablet 500 mcg PO DAILY 0RF chlorpheniramine maleate [ChlorTabs] 4 mg Tablet See Rx Instructions .ROUTE .COMPLEX 0RF Rx Instructions: 4 mg orally TID THEN ALTERNATES WITH BENADRYL THEN NEXT DAY prednisolone acetate 1 % Drops,Suspension 1 drp ophthalmic (eye) PRN 0RF Rx Instructions: IN RIGHT EYE diphenhydramine HCl [Benadryl] 25 mg Capsule See Rx Instructions .ROUTE .COMPLEX 0RF Rx Instructions: 25MG PO TID THEN ALTERNATES WITH CHLORTAB THE NEXT DAY pyridostigmine bromide 60 mg Tablet 30 mg PO BID Qty: 60 4RF metoprolol tartrate 50 mg Tablet 100 mg PO BID@0900,2100 Qty: 60 3RF digoxin 125 mcg (0.125 mg) tablet See Rx Instructions .ROUTE .COMPLEX 0RF Rx Instructions: ALTERNATE 1/2 TABLET DAILY WITH 1 TABLET DAILY ferrous gluconate 324 mg (37.5 mg iron) tablet See Rx Instructions .ROUTE .COMPLEX 0RF Rx Instructions: ALTERNATE 1 TABLET DAILY WITH 2 TABLETS DAILY magnesium L-lactate 84 mg tablet extended release 84 mg PO BID 0RF FeroSul 325 mg (65 mg iron) tablet See Rx Instructions .ROUTE .COMPLEX 0RF Rx Instructions: 325mg po on sun,mon,wed and fri furosemide 20 mg tablet 20 mg PO EVERY OTHER DAY 0RF insulin lispro 100 unit/mL insulin pen See Rx Instructions .ROUTE .COMPLEX 0RF Rx Instructions: SLIDING SCALE before meals AND BEDTIME-MAX OF 40 UNITS PER DAY 150-200= 0 units 201-250= 2 units 251-300= 4 units 301-350= 6 units 351-400= 8 units sulfasalazine 500 mg tablet 500 mg PO BID@08,17 0RF prednisone 2.5 mg tablet 2.5 mg PO QAM 0RF diltiazem HCl 120 mg capsule,extended release 24hr 120 mg PO QAM 0RF potassium chloride 20 mEq tablet extended release 20 meq PO BID 0RF tramadol 50 mg tablet 50 mg PO TID 0RF pantoprazole 40 mg tablet,delayed release (DR/EC) 40 mg PO BID 0RF Discharge Orders: Discharge ED (Routine); Ordered 11/04/21 Ordered By: Karma Garner Referrals: Davion Griggs MD [Primary Care Provider] - 1-3 days Discharge Diet: Advance as tolerated Discharge Activity: Resume usual activity Patient Instructions: Weakness (ED) Coding Level of Care Code ED Water Control Supervisor for Chg Fwd Exam Comprehensive
[2021-11-03] MEDS: sodium chloride 0.9% 1,000 ML 999 ML IV (23:32)
[2021-11-03 23:47] LABS: Basophils % 0.6 %; Eosinophils % 0.3 %; Hematocrit 31.6 % (37.0-47.0); Hemoglobin 10.4 g/dL (11.5-15.3); Lymphocytes # 1.3 10^3/uL (0.8-4.8); Lymphocytes % 19.4 %; Mean Corpuscular HGB Conc 32.9 g/dL (30.0-36.0); Mean Corpuscular Hemoglobin 33.2 pg (28.0-34.0); Mean Platelet Volume 9.3 fL (7.4-10.4); Monocytes # 0.7 10^3/uL (0.2-0.9); Monocytes % 10.1 %; Neutrophils # 4.75 10^3/uL (1.8-7.7); Neutrophils % 68.9 %; Nucleated Red Blood Cells % 0.3 %; Platelet Count 194 10^3/cmm (130-400); Red Blood Count 3.13 10^6/uL (4.1-5.3); Red Cell Distribution Width 14.5 % (12.1-15.1); White Blood Count 6.9 10^3/uL (4.0-10.0)
[2021-11-04 00:15] LABS: Alanine Aminotransferase 26 U/L (0-33); Albumin Level 3.9 g/dL (3.5-5.2); Alkaline Phosphatase 83 IU/L (35-105); Anion Gap 16.6 (5-19); Aspartate Amino Transferase 24 U/L (0-32); Blood Urea Nitrogen 20 mg/dL (8-23); Calcium 10.1 mg/dL (8.5-10.5); Carbon Dioxide 29 mmol/L (22-29); Chloride 96 mmol/L (98-107); Globulin 2.7 g/dL (1.3-4.6); Glucose 242 mg/dL (65-115); Osmolality Calculated 297 mOsm/kg (285-295); Potassium 3.6 mmol/L (3.5-5.1); Sodium 138 mmol/L (136-145); Total Bilirubin 0.5 mg/dL (0.15-1.2); Total Protein 6.6 g/dL (6.6-8.7)
== END 2021-11-04 01:06 | disposition home or self-care (01) ==
PROVIDERS: Emergency Provider Emergency Medicine; PCP Family Medicine
DX: R53.1 Weakness (principal); S09.90XA Unspecified injury of head, initial encounter; W19.XXXA Unspecified fall, initial encounter; R29.6 Repeated falls; R41.82 Altered mental status, unspecified; Z91.81 History of falling; Z79.891 Long term (current) use of opiate analgesic; Z79.4 Long term (current) use of insulin; Z87.891 Personal history of nicotine dependence; J44.9 Chronic obstructive pulmonary disease, unspecified; I50.9 Heart failure, unspecified; I25.10 Atherosclerotic heart disease of native coronary artery without angina pectoris; I10 Essential (primary) hypertension; E78.5 Hyperlipidemia, unspecified; E03.9 Hypothyroidism, unspecified; E11.9 Type 2 diabetes mellitus without complications
CPT/HCPCS: 70450; 71045; 80053; 85025; 93005; 96360; 99283; J7030

== ENCOUNTER 2021-11-04 14:58 | Emergency (ER) | payer MEDICARE, SELFPAY ==
[2021-11-04] VITALS (13 sets, daily range): BP systolic 176–223; BP diastolic 64–94; PULSE 62–75; RESP 16–20; TEMP 37.8–37.9; O2SAT 94–99; BMI 35.7
--- NOTE | 2021-11-04 15:48 | CTR_ITS ---
PROCEDURE INFORMATION: Exam: CT Abdomen And Pelvis With Contrast Exam date and time: 11/04/2021 3:48 PM Age: 71 years old Clinical indication: Abdominal pain; Generalized; Prior surgery; Surgery date: 6+ months; Surgery type: Hyster; Additional info: Abd pain TECHNIQUE: Imaging protocol: Computed tomography of the abdomen and pelvis with contrast. Radiation optimization: All CT scans at this facility use at least one of these dose optimization techniques: automated exposure control; mA and/or kV adjustment per patient size (includes targeted exams where dose is matched to clinical indication); or iterative reconstruction. Contrast material: VISIPAQUE 320; Contrast volume: 95 ml; Contrast route: INTRAVENOUS (IV); COMPARISON: CT pelvis wo con [id number] 06/22/2021 9:37 PM RADIATION DOSE METRICS: Total DLP (mGy-cm): 1822.12 FINDINGS: Lungs: Left lower lobe calcified granuloma. Heart: Coronary artery calcifications. Mitral annulus calcifications. Liver: Calcified granuloma in the liver. Mild cirrhotic morphology. Gallbladder and bile ducts: Cholecystectomy. The bile ducts are within normal limits. Pancreas: Normal. No ductal dilation. Spleen: Calcified granulomas in the spleen. Adrenal glands: Normal. No mass. Kidneys and ureters: 3 mm right and 2 mm left nonobstructing renal calculi. Hypodense lesions in the left kidney are too small to characterize but are most likely cysts. No follow-up imaging is recommended. No hydronephrosis. Stomach and bowel: Unremarkable. No obstruction. No mucosal thickening. Appendix: The appendix is not visualized. No secondary signs of appendicitis. Intraperitoneal space: Unremarkable. No free air. No significant fluid collection. Vasculature: Arterial calcifications. No aneurysm. Recanalized umbilical vein, likely indicating portal venous hypertension. No varices. Lymph nodes: Unremarkable. No enlarged lymph nodes. Urinary bladder: Unremarkable as visualized. Reproductive: The uterus and ovaries are absent. Bones/joints: Scoliosis and degenerative changes of the spine. No fracture identified. Small hypodensity in the liver is most likely a cyst but too small to characterize. No follow-up imaging is recommended. Soft tissues: 2.5 cm mass or cyst in the inferior left breast. Small fat containing umbilical hernia. Mild body wall edema. CT/CT abdomen pelvis w con* [id number] IMPRESSION: 1. No acute abnormality identified. 2. Nonobstructing renal calculi. 3. Probable mild liver cirrhosis. Clinical correlation recommended. 4. 2.5 cm mass or cyst in the inferior left breast. Correlation with mammography and breast ultrasound recommended. COMMENTS: Consistent with the [employer]'s Incidental Findings Committee white paper (J Am Cesar Radiol 2018): Any incidental renal lesion less than 1 cm or classified as too small to characterize, or any incidental cystic renal lesion characterized as simple-appearing, is likely benign. No follow-up imaging is recommended for these lesions per consensus recommendations based on imaging criteria.
--- NOTE | 2021-11-04 15:48 | XRR_ITS ---
PROCEDURE INFORMATION: Exam: XR Chest Exam date and time: 11/04/2021 3:48 PM Age: 71 years old Clinical indication: Patient HX: Hypertension, dyspnea, PT unwilling or unable to speak TECHNIQUE: Imaging protocol: XR of the chest. Views: 1 view. COMPARISON: CR (CHEST, ) 11/03/2021 11:09 PM FINDINGS: Lungs: Calcified granuloma and minimal atelectasis in the left lung base. The right lung is clear. Pleural spaces: Unremarkable. No pleural effusion. No pneumothorax. Heart/Mediastinum: Cardiomegaly. Bones/joints: Unremarkable. Other findings: The patient is rotated to the right. XR/XR chest 1V portable [id number] IMPRESSION: 1. Cardiomegaly.
--- NOTE | 2021-11-04 15:49 | ECG_ITS ---
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 Measurements Intervals [place] Rate: 67 P: 54 [place]: 259 QRS: -63 QRSD: 166 T: 37 QT: 440 QTc: 468 Interpretive Statements SINUS RHYTHM WITH FIRST DEGREE AV BLOCK RIGHT BUNDLE BRANCH BLOCK [120+ ms QRS DURATION, UPRIGHT V1, 40+ ms S IN I/aVL/V4/V5/V6] LEFT ANTERIOR FASCICULAR BLOCK [QRS AXIS <= -45, QR IN I, RS IN II] VOLTAGE CRITERIA FOR LVH [MEETS CRITERIA IN ONE OF: R(aVL), S(V1), R(V5), R(V5/V6)+S(V1)] POSSIBLE SEPTAL MYOCARDIAL INFARCTION , OF INDETERMINATE AGE [30 ms Q WAVE IN V1/V2] Compared to ECG 11/03/2021 23:36:20 T-wave abnormality no longer present Possible ischemia no longer present Myocardial infarct finding still present Electronically Signed On 11-06-2021 15:47:09 CDT by Victoriano White M.D. [id number]
[2021-11-04 15:58] LABS: Basophils % 0.4 %; Eosinophils % 0.1 %; Hematocrit 29.2 % (37.0-47.0); Hemoglobin 9.9 g/dL (11.5-15.3); Lymphocytes # 2.1 10^3/uL (0.8-4.8); Lymphocytes % 21.6 %; Mean Corpuscular HGB Conc 33.9 g/dL (30.0-36.0); Mean Corpuscular Hemoglobin 33.8 pg (28.0-34.0); Mean Corpuscular Volume 99.7 fl (81-99); Mean Platelet Volume 9.5 fL (7.4-10.4); Monocytes % 9.7 %; Neutrophils # 6.58 10^3/uL (1.8-7.7); Neutrophils % 67.3 %; Nucleated Red Blood Cells # 0.1 /100WBC; Nucleated Red Blood Cells % 0.5 %; Platelet Count 198 10^3/cmm (130-400); Red Blood Count 2.93 10^6/uL (4.1-5.3); Red Cell Distribution Width 14.6 % (12.1-15.1); White Blood Count 9.8 10^3/uL (4.0-10.0)
[2021-11-04] MEDS: acetaminophen 500 mg Tablet 1000 MG PO (16:04)
[2021-11-04 16:11] LABS: Troponin(5th) Baseline 28 ng/L (0-10)
[2021-11-04] MEDS: iodixanol 320 mg/mL 100mL Btl IV (16:18)
[2021-11-04 16:19] LABS: Alanine Aminotransferase 26 U/L (0-33); Albumin Level 4.2 g/dL (3.5-5.2); Alkaline Phosphatase 78 IU/L (35-105); Anion Gap 18.7 (5-19); Aspartate Amino Transferase 26 U/L (0-32); Blood Urea Nitrogen 22 mg/dL (8-23); Calcium 9.3 mg/dL (8.5-10.5); Carbon Dioxide 29 mmol/L (22-29); Chloride 91 mmol/L (98-107); Globulin 2.7 g/dL (1.3-4.6); Glucose 177 mg/dL (65-115); Lipase 25 U/L (13-60); NT Pro B Type Natriuretic Pept 2067 pg/mL (0-125); Osmolality Calculated 288 mOsm/kg (285-295); Potassium 3.7 mmol/L (3.5-5.1); Sodium 135 mmol/L (136-145); Total Bilirubin 0.5 mg/dL (0.15-1.2); Total Protein 6.9 g/dL (6.6-8.7)
--- NOTE | 2021-11-04 16:49 | W.ED.GENADLT ---
HPI - General Adult General: Chief complaint: Nausea/Vomiting/Diarrhea Stated complaint: HYPERTENSION Time Seen by Provider: 11/04/21 15:13 History of Present Illness: Patient is a 71-year-old female with history of CHF, COPD, hyperlipidemia who presents emergency room with 1 day of dyspnea with cough, chill and generalized weakness. Patient had loose stool x 1 day. Patient also reports lower abd pain and multiple episodes of vomiting. Patient's , patient has been feeling increasing fatigue for the last 2 days. Patient has had complaints of lower abdominal pain yesterday. She denies any diarrhea/melena/but she has had nausea/vomiting, diaphoresis, chest pain or palpitation. She has no complaints. Patient is able to tolerate p.o. Onset:1 day ago Duration:1 day Location:home Severity:moderate Associated symptoms: Reports dyspnea, nausea and vomiting; Deny chest pain, rash or palpitations Review of Systems Const: Reports: other (+generalized weakness); Denies: fever(s) or chills Eyes: Denies: change in vision ENMT: Denies: mouth pain Card: Denies: chest pain or palpitations Resp: Reports: dyspnea and non-productive cough GI: Reports: nausea, vomiting and other (+loose stool x 1 day); Denies: abdominal pain or diarrhea : Denies: dysuria Musc: Denies: extremity pain Skin/Breast: Denies: rash or new lesions Neuro: Denies: weakness in extremities Psych: Reports: other (Normal mood) [place]/Lymph: Denies: easy bruising PFS ED PFSH: Medical History Anxiety and depression CHF exacerbation Chronic knee pain Chronic low back pain COPD (chronic obstructive pulmonary disease) Oxygen dependent, 2 L at baseline Coronary artery disease COVID-14 August 2020 Duodenal ulcer due to bacteria Fibromyalgia High risk medication use Hyperlipidemia Hypertension Hypothyroidism Immunization counseling Inflammatory arthritis Intermittent atrial fibrillation Because the patient history of frequent fall she was thought to be high risk for bleeding complications. So she is taking only the aspirin at this time. SHE HAS EASY BRUISING WELL Left renal mass Liver cirrhosis Low back pain of over 3 months duration Lung nodule Narrow complex tachycardia Osteoarthritis of knees, bilateral Poorly controlled diabetes mellitus Psychiatric care Recurrent UTI Seronegative rheumatoid arthritis of both hands Unstable angina Urgency incontinence UTI (urinary tract infection) Surgical History History of cardiac cath History of cholecystectomy History of hysterectomy History of knee replacement History of thyroid surgery Family History Other CAD (coronary artery disease) Cancer Denies family history of Anesthesia complication Bleeding disorder Social History Smoking and tobacco status: former smoker Quit status (tobacco): has quit using tobacco Year quit tobacco: 2005 Second hand smoke exposure: No Alcohol intake: never Adopted: No Caregiver/support person: No Lives independently: No Household members: spouse Marital status: Current occupational status: retired History of recent travel: No Current gender identity: Female Female Reproductive History: Date of last menstrual period: 11/18/20 Physical Exam Const: COMMON NORMALS: alert HENMT: COMMON NORMALS: atraumatic HEAD & SCALP: atraumatic MOUTH: moist mucous membranes not abnormal Eye: COMMON NORMALS: EOMs intact bilaterally and conjunctivae normal CONJUNCTIVA: Yes conjunctivae normal Neck/C-Spine: COMMON NORMALS: full ROM and supple Resp: COMMON NORMALS: normal respiratory effort OTHER: +expiratory wheezes and coarse breath sounds b/l Cardio: COMMON NORMALS: regular rate RATE: regular rate GI: COMMON NORMALS: Soft to palpation and non-tender PALPATION: Yes Soft to palpation Extremity: COMMON NORMALS: full ROM Neuro: SENSORIUM/ORIENTATION: Yes alert MOTOR EXAM: No Abnormal motor strength present and Other motor observations present (no focal motor deficits) Psych: COMMON NORMALS: speech normal SPEECH: Yes normal speech MOOD & AFFECT: Yes euthymic mood Course Vital Signs: Vital signs: Vital Signs Temperature 100.2 F H 11/04/21 19:58 Pulse Rate 67 11/04/21 19:23 Respiratory Rate 18 11/04/21 19:23 Blood Pressure 195/65 11/04/21 19:23 Pulse Oximetry 96 11/04/21 19:23 MDM - General Adult Medical Decision Making Patient is a 71-year-old female with a hx of CHF, anxiety, COPD who presents emergency room for evaluation of 1 day of dyspnea with cough, chills and generalized weakness. Had a low-grade fever in the emergency room. Noted by have mild expiratory wheezes. White count of 9.8. Creatinine 1.3 similar to baseline. X-ray chest shows no signs of focal consolidations. Covid test negative. Patient is able to tolerate p.o. without difficulty. Patient received DuoNeb Solu-Medrol with significant improvement in symptoms of wheezing. Patient continued satting greater than 95% on room air. Patient is able to tolerate p.o. without any difficulty. Patient received Tylenol and GI cocktail. Is unclear what is the source of patient's low-grade fever. This is likely to be viral in nature. However, given early disease process, acute condition close follow with PCP for reassessment on Sunday. I have given patient follow up with our immigration case manager to be seen by our outpatient followup with PCP for close monitoring. Patient aware of a call from our immigration case manager to schedule for appointment(s) and verbalizes understanding of the importance of following up. Disposition: Discharge. Patient counseled regarding diagnostic impression, treatment plan. Patient given ED strict return precautions to return for continuation, worsening, or development of new symptoms. Instructed to f/u w/ PCP regarding symptoms today. Patient verbalized understanding. Patient and aware to bring the patient back should there be any new signs of shortness of breath, dyspnea, cough, or any new extreme complaint. Lab Data : 11/04/21 15:21 11/04/21 15:21 Radiology Impressions Abdomen/Pelvis CT 11/04/21 15:48 IMPRESSION: 1. No acute abnormality identified. 2. Nonobstructing renal calculi. 3. Probable mild liver cirrhosis. Clinical correlation recommended. 4. 2.5 cm mass or cyst in the inferior left breast. Correlation with mammography and breast ultrasound recommended. COMMENTS: Consistent with the [employer]'s Incidental Findings Committee white paper (J Am Cesar Radiol 2018): Any incidental renal lesion less than 1 cm or classified as too small to characterize, or any incidental cystic renal lesion characterized as simple-appearing, is likely benign. No follow-up imaging is recommended for these lesions per consensus recommendations based on imaging criteria. Chest X-Ray 11/04/21 15:48 IMPRESSION: 1. Cardiomegaly. Laboratory Results WBC 9.8 10^3/uL (4.0-10.0) 11/04/21 15:21 RBC 2.93 10^6/uL (4.1-5.3) L 11/04/21 15:21 Hgb 9.9 g/dL (11.5-15.3) L 11/04/21 15: Hct 29.2 % (37.0-47.0) L 11/04/21 15: MCV 99.7 fl (81-99) H 11/04/21 15:21 MCH 33.8 pg (28.0-34.0) 11/04/21 15: MCHC 33.9 g/dL (30.0-36.0) 11/04/21 15: RDW 14.6 % (12.1-15.1) 11/04/21 15: Plt Count 198 10^3/cmm (130-400) 11/04/21 15: MPV 9.5 fL (7.4-10.4) 11/04/21 15: Neut % (Auto) 67.3 % 11/04/21 15: Lymph % (Auto) 21.6 % 11/04/21 15: [place] % (Auto) 9.7 % 11/04/21 15: Eos % (Auto) 0.1 % 11/04/21 15: Baso % (Auto) 0.4 % 11/04/21 15: Neut # (Auto) 6.58 10^3/uL (1.8-7.7) 11/04/21: Lymph # (Auto) 2.1 10^3/uL (0.8-4.8) 11/04/21 15:21 [place] # (Auto) 1.0 10^3/uL (0.2-0.9) H 11/04/21 15: Eos # (Auto) 0.0 10^3/uL (0.0-0.8) 11/04/21 15: Baso # (Auto) 0.0 10^3/uL (0.0-0.1) 11/04/21: Nucleated RBC % (auto) 0.5 % 11/04/21: Nucleated RBCs # 0.1 /100WBC 11/04/21 15:21 Sodium 135 mmol/L (136-145) L 11/04/21 15: Potassium 3.7 mmol/L (3.5-5.1) 11/04/21 15:21 Chloride 91 mmol/L (98-107) L 11/04/21 15:21 Carbon Dioxide 29 mmol/L (22-29) 11/04/21 15:21 Anion Gap 18.7 (5-19) 11/04/21 15:21 BUN 22 mg/dL (8-23) 11/04/21 15:21 Creatinine 1.3 mg/dL (0.5-0.9) H 11/04/21 15:21 GFR Calculation Not Reportable 11/04/21 15:21 Glucose 177 mg/dL (65-115) H 11/04/21 15:21 Calculated Osmolality 288 mOsm/kg (285-295) 11/04/21 15:21 Calcium 9.3 mg/dL (8.5-10.5) 11/04/21 15:21 Total Bilirubin 0.5 mg/dL (0.15-1.2) 11/04/21 15:21 AST 26 U/L (0-32) 11/04/21 15:21 ALT 26 U/L (0-33) 11/04/21 15:21 Alkaline Phosphatase 78 IU/L (35-105) 11/04/21 15:21 Troponin T Baseline 28 ng/L (0-10) H 11/04/21 15:21 Troponin T 120 Minute 25.66 ng/L (0-10) H 11/04/21 17:21 Delta Troponin T -2.34 ABS# (0-10) L 11/04/21 17:21 NT-Pro-B Natriuret Pep 2067 pg/mL (0-125) H 11/04/21 15:21 Total Protein 6.9 g/dL (6.6-8.7) 11/04/21 15:21 Albumin 4.2 g/dL (3.5-5.2) 11/04/21 15:21 Globulin 2.7 g/dL (1.3-4.6) 11/04/21 15:21 Lipase 25 U/L (13-60) 11/04/21 15:21 Urine Color Yellow (Yellow) 11/04/21 16:49 Urine Appearance Clear (CLEAR) 11/04/21 16:49 Urine pH 5 (5-7) 11/04/21 16:49 Ur Specific [place] 1.020 (1.005-1.030) 11/04/21 16:49 Urine Protein 2+ (Negative) H 11/04/21 16:49 Urine Glucose (UA) 2+ (Normal) H 11/04/21 16:49 Urine Ketones Negative (Negative) 11/04/21 16:49 Urine Blood Neg (Negative) 11/04/21 16:49 Urine Nitrate Negative (Negative) 11/04/21 16:49 Urine Bilirubin 1+ (Negative) H 11/04/21 16:49 Urine Urobilinogen Norm mg/dL (Negative) 11/04/21 16:49 Ur Leukocyte Esterase Negative (Negative) 11/04/21 16:49 Urine RBC None /hpf (0-2) 11/04/21 16:49 Urine WBC None /hpf (0-5) 11/04/21 16:49 Ur Squamous Epith Cells 0-4 /hpf (0-5) H 11/04/21 16:49 Amorphous Sediment 1+ /hpf 11/04/21 16:49 Urine Bacteria 2+ /hpf (NONE) H 11/04/21 16:49 Urine Mucus Trace /hpf 11/04/21 16:49 Coronavirus 229E (PCR) Not detected (NOT DETECT) 11/04/21 16:22 Influenza Type A Ag Negative (Negative) 11/04/21 16:22 Influenza Type B Ag Negative (Negative) 11/04/21 16:22 SARS-CoV-2 (PCR) Not detected (NOT DETECT) 11/04/21 16:22 Imaging Data Other Imaging: Radiologist's impression: [address] [address] XRay Report Signed Patient: Myesha Parker Unit #: [id number] : 1950 Age/Sex: 71 / F ADM Date: 11/04/21 Loc: ER Room/Bed: Attending Dr: Ordering Provider/Ordering MD: Yunior Lucero MD Date of Service: 11/04/21 Procedure(s): XR chest 1V portable [id number] Accession Number(s): [id number] Report Number: [id number] PROCEDURE INFORMATION: Exam: XR Chest Exam date and time: 11/04/2021 3:48 PM Age: 71 years old Clinical indication: Patient HX: Hypertension, dyspnea, PT unwilling or unable to speak TECHNIQUE: Imaging protocol: XR of the chest. Views: 1 view. COMPARISON: CR (CHEST, ) 11/03/2021 11:09 PM FINDINGS: Lungs: Calcified granuloma and minimal atelectasis in the left lung base. The right lung is clear. Pleural spaces: Unremarkable. No pleural effusion. No pneumothorax. Heart/Mediastinum: Cardiomegaly. Bones/joints: Unremarkable. Other findings: The patient is rotated to the right. XR/XR chest 1V portable [id number] IMPRESSION: 1. Cardiomegaly.? ? Dictated By: Thompson Snowden Signed By: Thompson Snowden Signed Date/Time: 11/04/21 1700 DD/ 1548 Discharge Plan Discharge Patient Disposition: Home Clinical Impression: Cough, Chill, Dyspnea Condition: Stable Prescriptions: No Action Humira Pen 40 mg/0.8 mL pen injector kit 40 mg SUBCUT Q14D Qty: 2 3RF Hold Instructions: Resume on 08/02/21. Rx Instructions: TAKES ON SATURDAYS EVERY 14 DAYS methotrexate sodium 2.5 mg tablet 7.5 mg PO Q7D Qty: 15 3RF Rx Instructions: ON SATURDAYS duloxetine 60 mg capsule,delayed release(DR/EC) 60 mg PO DAILY@08 Qty: 90 0RF Rx Instructions: Take one capsule by mouth every morning folic acid 1 mg tablet 1 mg PO DAILY@08 Qty: 90 1RF nitroglycerin [Nitrostat] 0.4 mg tablet, sublingual 0.4 mg SUBLINGUAL Q5M PRN (Reason: Chest Pain) Qty: 30 3RF Rx Instructions: MAX 3 DOSES PER EPISODE hydrocodone-acetaminophen 7.5-325 mg tablet 1 tab PO TID PRN (Reason: pain) 30 Days Qty: 90 0RF tizanidine 4 mg tablet 4 mg PO TID PRN (Reason: muscle spasticity) 30 Days Qty: 90 1RF levothyroxine [Euthyrox] 150 mcg tablet 150 mcg PO QAM 0RF calcium carbonate [Calcium 600] 600 mg calcium (1,500 mg) tablet 600 mg PO DAILY 0RF methylsulfonylmethane [MSM] 1,000 mg tablet 1,000 mg PO BID 0RF acetaminophen [Arthritis Pain Reliever] 650 mg Tablet Extended Release 650 mg PO Q4H PRN (Reason: Pain) 0RF cholecalciferol (vitamin D3) [Vitamin D3] 25 mcg (1,000 unit) Tablet 2,000 unit PO DAILY@08 0RF albuterol sulfate 2.5 mg /3 mL (0.083 %) Solution For Nebulization 2.5 mg inhalation TID PRN (Reason: Shortness Of Breath) 0RF Novolin 70/30 U-100 Insulin 100 unit/mL (70-30) suspension See Rx Instructions .ROUTE .COMPLEX 0RF Rx Instructions: 55 units subcutaneously qam and 35 units qpm albuterol sulfate 90 mcg/actuation Hfa Aerosol Inhaler 2 puff INHALATION Q6H PRN (Reason: Shortness Of Breath) 0RF docusate sodium [Stool Softener] 250 mg Capsule 250 mg PO BEDTIME 0RF cyanocobalamin (vitamin B-12) [Vitamin B-12] 500 mcg Tablet 500 mcg PO DAILY 0RF chlorpheniramine maleate [ChlorTabs] 4 mg Tablet See Rx Instructions .ROUTE .COMPLEX 0RF Rx Instructions: 4 mg orally TID THEN ALTERNATES WITH BENADRYL THEN NEXT DAY prednisolone acetate 1 % Drops,Suspension 1 drp ophthalmic (eye) PRN 0RF Rx Instructions: IN RIGHT EYE diphenhydramine HCl [Benadryl] 25 mg Capsule See Rx Instructions .ROUTE .COMPLEX 0RF Rx Instructions: 25MG PO TID THEN ALTERNATES WITH CHLORTAB THE NEXT DAY pyridostigmine bromide 60 mg Tablet 30 mg PO BID Qty: 60 4RF metoprolol tartrate 50 mg Tablet 100 mg PO BID@0900,2100 Qty: 60 3RF atorvastatin 80 mg tablet 80 mg PO BEDTIME 0RF lisinopril 40 mg tablet 40 mg PO QPM 0RF digoxin 125 mcg (0.125 mg) tablet See Rx Instructions .ROUTE .COMPLEX 0RF Rx Instructions: ALTERNATE 1/2 TABLET DAILY WITH 1 TABLET DAILY ferrous gluconate 324 mg (37.5 mg iron) tablet See Rx Instructions .ROUTE .COMPLEX 0RF Rx Instructions: ALTERNATE 1 TABLET DAILY WITH 2 TABLETS DAILY magnesium L-lactate 84 mg tablet extended release 84 mg PO BID 0RF ferrous sulfate [FeroSul] 325 mg (65 mg iron) tablet See Rx Instructions .ROUTE .COMPLEX 0RF Rx Instructions: 325mg po on sun,mon,wed and fri furosemide 20 mg tablet 10 mg PO EVERY OTHER DAY 0RF insulin lispro 100 unit/mL insulin pen See Rx Instructions .ROUTE .COMPLEX 0RF Rx Instructions: SLIDING SCALE before meals AND BEDTIME-MAX OF 40 UNITS PER DAY 150-200= 0 units 201-250= 2 units 251-300= 4 units 301-350= 6 units 351-400= 8 units sulfasalazine 500 mg tablet 500 mg PO BID@08,17 0RF prednisone 2.5 mg tablet 2.5 mg PO QAM 0RF diltiazem HCl 120 mg capsule,extended release 24hr 120 mg PO QAM 0RF potassium chloride 20 mEq tablet extended release 20 meq PO BID 0RF tramadol 50 mg tablet 50 mg PO TID 0RF pantoprazole 40 mg tablet,delayed release (DR/EC) 40 mg PO BID 0RF Discharge Orders: Discharge ED (Routine); Ordered 11/04/21 Ordered By: Yunior Lucero Referrals: Davion Griggs MD [Primary Care Provider] - Discharge Diet: Advance as tolerated Discharge Activity: Increase activity as tolerated Activity Restrictions/Additional Instructions: Come back to the emergency room if your symptoms worsen, have any shortness of breath, fever/chills, dehydration, inability tolerate food or drinks, any difficulty breathing, or any new or concerning complaints. Coding Level of Care Code ED Steelscope Operator for Dougie Fwsaul Exam Comprehensive
[2021-11-04] MEDS: ipratropium-albuterol 3 mL Neb INHALATION ×3 (17:05)
[2021-11-04 17:08] LABS: Add Urine Microscopic? YES; Bilirubin Urine 1+ (Negative); Blood Urine Neg (Negative); Glucose Urine UA 2+ (Normal); Ketones Urine Negative (Negative); Leukocyte Esterase Urine Negative (Negative); Nitrate Urine Negative (Negative); Protein Urine 2+ (Negative); Urine Appearance Clear (CLEAR); Urine Color Yellow (Yellow); Urobilinogen Urine Norm (Negative); pH Urine 5 (5-7)
[2021-11-04 17:12] LABS: Bacteria Urine 2+ /hpf; Squamous Epithelial Cell Urine 0-4 /hpf (0-5)
[2021-11-04 17:13] LABS: Add Urine Culture? No; Amorphous Sediment Urine 1+ /hpf; Mucus Urine TRACE /hpf
[2021-11-04 17:34] LABS: Influenza A by IFA Negative (Negative); Influenza B by IFA Negative (Negative)
--- NOTE | 2021-11-04 17:49 | ECG_ITS ---
[facility] Test Date: 2021-11-04 Pat Name: Myesha Parker Department: Room: Gender: Female Bobbin Doffer: : 1950 Requested By: Yunior Lucero Order Number: [id number] Wilbur MD: Victoriano White M.D. Measurements Intervals [place] Rate: 67 P: -30 AR: 220 QRS: -61 QRSD: 168 T: 21 QT: 439 QTc: 464 Interpretive Statements SINUS RHYTHM WITH FIRST DEGREE AV BLOCK RIGHT BUNDLE BRANCH BLOCK [120+ ms QRS DURATION, UPRIGHT V1, 40+ ms S IN I/aVL/V4/V5/V6] LEFT ANTERIOR FASCICULAR BLOCK [QRS AXIS <= -45, QR IN I, RS IN II] VOLTAGE CRITERIA FOR LVH [MEETS CRITERIA IN ONE OF: R(aVL), S(V1), R(V5), R(V5/V6)+S(V1)] Compared to ECG 11/04/2021 16:30:50 Myocardial infarct finding no longer present Electronically Signed On 11-06-2021 15:55:39 CDT by Victoriano White M.D. [email or web address]
[2021-11-04 18:00] LABS: Troponin 5 2HR 25.66 ng/L (0-10)
[2021-11-04 18:06] LABS: Troponin 5 2HR Delta -2.34 ABS# (0-10)
[2021-11-04 19:14] LABS: Adenovirus Not Detected (NOT DETECT); Chlamydia Pneumoniae Not Detected (NOT DETECT); Coronavirus 229E,HKU1,NL63,OC4 Not Detected (NOT DETECT); Human Metapneumovirus Not Detected (NOT DETECT); Human Rhinovirus/Enterovirus Not Detected (NOT DETECT); Influenza A Not Detected (NOT DETECT); Influenza A H1 Not Detected (NOT DETECT); Influenza A H1-2009 Not Detected (NOT DETECT); Influenza A H3 Not Detected (NOT DETECT); Influenza B Not Detected (NOT DETECT); Mycoplasma Pneumoniae Not Detected (NOT DETECT); Parainfluenza Virus Type 1 Not Detected (NOT DETECT); Parainfluenza Virus Type 2 Not Detected (NOT DETECT); Parainfluenza Virus Type 3 Not Detected (NOT DETECT); Parainfluenza Virus Type 4 Not Detected (NOT DETECT); Respiratory Syncytial Virus A Not Detected (NOT DETECT); Respiratory Syncytial Virus B Not Detected (NOT DETECT); SARS-COV-2 Not Detected (NOT DETECT)
[2021-11-11 17:30] LABS: ABG PCO2 48.7 mmHg (35-45); ABG PH Result 7.47 (7.35-7.45); Alveolar-Arterial Oxygen Gradi 8.2 mmHg (5-10); Arterial Blood Gas Hematocrit 44.5 % (37-47); Base Excess ABG 9.9 mmol/L (-2.0-2.0); Blood Gas Allen Test Pos; Blood Gas Operator Identificat glc; Blood Gas Sample Site Radial, left; Blood Gas Sample Type Arterial; Carboxyhemoglobin < 0.0 %THgb (0.4-20.1); HCO3 ABG 35.2 mmol/L (22-26); HGB O2 Sat 92.4 % (95-100); Ionized Calcium Level - ABG 1.2 mmol/L (1.1-1.4); Methemoglobin 1.3 % (0.4-1.5); Oxygen Device NC; Oxygen Saturation ABG 93.2; PO2 ABG 77.3 mmHg (80.0-100.0); Potassium Level - ABG 3.8 mmol/L (3.5-5.0); Total Hemoglobin 14.5 g/dL (12-16)
== END 2021-11-04 19:50 | disposition home or self-care (01) ==
PROVIDERS: Emergency Provider Emergency Medicine; PCP Family Medicine
DX: R05.9 Cough, unspecified (principal); R50.9 Fever, unspecified; R53.1 Weakness; R06.00 Dyspnea, unspecified; Z20.822 Contact with and (suspected) exposure to COVID-19; I11.0 Hypertensive heart disease with heart failure; I50.9 Heart failure, unspecified; J44.9 Chronic obstructive pulmonary disease, unspecified; I25.10 Atherosclerotic heart disease of native coronary artery without angina pectoris; F41.9 Anxiety disorder, unspecified; E78.5 Hyperlipidemia, unspecified; E11.9 Type 2 diabetes mellitus without complications; Z79.4 Long term (current) use of insulin; Z87.891 Personal history of nicotine dependence; Z79.891 Long term (current) use of opiate analgesic
CPT/HCPCS: 36415; 36600; 71045; 74177; 80051; 80053; 81001; 82330; 82805; 83690; 83880; 84484; 85025; 87635; 87804; 93005; 94640; 96374; 99284; J2930; Q9967

== ENCOUNTER 2021-11-17 16:22 | Emergency (ER) | payer MEDICARE, SELFPAY ==
[2021-11-17 16:32] VITALS: BP 182/78; PULSE 57; RESP 18; TEMP 36.9; O2SAT 100; BMI 35.2
[2021-11-17 17:11] VITALS: BP 179/70; PULSE 54; RESP 19; O2SAT 100
--- NOTE | 2021-11-17 17:16 | W.ED.WEAKNES ---
Documented by User: Gil Bean 11/17/21 18:08 HPI - Weakness General: Chief complaint: Weakness Stated complaint: GENERAL WEAKNESS, PAIN EVERYWHERE Time Seen by Provider: 11/17/21 16:53 History of Present Illness: 71-year-old female presents to emergency department chief complaint generalized weakness and fatigue apparently she is prone per her getting urinary tract infections she presents emergency department history of chronic pain med usage as well as many she took too many earlier today patient is drifting off to sleep appears to be a very poor historian apparently she is quite well-known to our facility. Associated symptoms: Reports confusion; Denies chest pain, chills, fever(s), nausea or vomiting Review of Systems General: Reports: 10 or more systems reviewed and unremarkable except in HPI and below Const: Denies: fever(s), chills, fatigue or malaise Eyes: Denies: change in vision or blurry vision Card: Denies: chest pain or palpitations Resp: Denies: dyspnea or productive cough GI: Denies: abdominal pain, nausea or vomiting : Denies: flank pain Musc: Denies: extremity pain or extremity swelling Skin/Breast: Denies: rash or pruritus Neuro: Reports: frequent falls and confusion Psych: Denies: anxiety or depression [place]/Lymph: Denies: easy bleeding All/Imm: Denies: urticaria, throat swelling or facial swelling PFSH ED PFSH: Medical History Anxiety and depression CHF exacerbation Chronic knee pain Chronic low back pain COPD (chronic obstructive pulmonary disease) Oxygen dependent, 2 L at baseline Coronary artery disease COVID-14 August 2020 Duodenal ulcer due to bacteria Fibromyalgia High risk medication use Hyperlipidemia Hypertension Hypothyroidism Immunization counseling Inflammatory arthritis Intermittent atrial fibrillation Because the patient history of frequent fall she was thought to be high risk for bleeding complications. So she is taking only the aspirin at this time. SHE HAS EASY BRUISING WELL Left renal mass Liver cirrhosis Low back pain of over 3 months duration Lung nodule Narrow complex tachycardia Osteoarthritis of knees, bilateral Poorly controlled diabetes mellitus Psychiatric care Recurrent UTI Seronegative rheumatoid arthritis of both hands Unstable angina Urgency incontinence UTI (urinary tract infection) Surgical History History of cardiac cath History of cholecystectomy History of hysterectomy History of knee replacement History of thyroid surgery Family History Other CAD (coronary artery disease) Cancer Denies family history of Anesthesia complication Bleeding disorder Social History Smoking and tobacco status: former smoker Quit status (tobacco): has quit using tobacco Year quit tobacco: 2005 Second hand smoke exposure: No Alcohol intake: never Adopted: No Caregiver/support person: No Lives independently: No Household members: spouse Marital status: Current occupational status: retired History of recent travel: No Current gender identity: Female Female Reproductive History: Date of last menstrual period: 11/18/20 Physical Exam Narrative: EXAM NARRATIVE: Patient appears to be drifting off to sleep on exam which after sternal rub to arouse her and wake her back up appears to be overmedicated at this time under the influence of the prescription pain meds or anxiety meds. No focal neuro deficit appreciated upon waking her up Const: COMMON NORMALS: no acute distress, patient oriented x3 and healthy appearing HENMT: COMMON NORMALS: normocephalic and atraumatic HEAD & SCALP: normocephalic and atraumatic Eye: COMMON NORMALS: Equal, round and reactive pupils present and EOMs intact bilaterally PUPIL: Yes Equal, round and reactive pupils present Neck/C-Spine: COMMON NORMALS: full ROM, supple and no JVD Lymph: LYMPHATIC: no lymphadenopathy noted Chest: COMMONS NORMALS: normal inspection of the chest and normal palpation of entire chest wall Resp: COMMON NORMALS: normal respiratory effort, No retractions and clear to auscultation bilaterally EFFORT & INSPECTION: Yes able to speak in complete sentences and Yes symmetric chest movement AUSCULTATION: clear to auscultation bilaterally Cardio: COMMON NORMALS: no JVD, regular rate and regular rhythm RATE: regular rate RHYTHM: regular rhythm GI: COMMON NORMALS: Normal to inspection, nondistended, normoactive bowel sounds present, Soft to palpation and non-tender INSPECTION: Yes normal to inspection PALPATION: Yes Soft to palpation : COMMON NORMALS: Yes no CVA tenderness BLADDER/KIDNEY EXAM: Yes no CVA tenderness Back/Pelvis: COMMON NORMALS: no CVA tenderness Extremity: COMMON NORMALS: normal to inspection and full ROM Neuro: COMMON NORMALS: patient oriented x3, CN's II-XII intact bilaterally, moves all extremities and no focal motor deficits Psych: COMMON NORMALS: mental status grossly normal, Normal thought process present, cooperative and normal affect THOUGHT PROCESS: Normal thought process present Skin: COMMON NORMALS: no rashes or lesions noted GENERAL SKIN EXAM: no rashes or lesions noted Course Vital Signs: Vital signs: Vital Signs Temperature 98.4 F 11/17/21 16:32 Pulse Rate 110 H 11/17/21 20:32 Respiratory Rate 18 11/17/21 20:32 Blood Pressure 139/91 11/17/21 20:38 Pulse Oximetry 100 11/17/21 20:32 MDM - Weakness Medical Decision Making Due to the patient's symptom condition I will be established lab work and imaging will be obtained small dose of Narcan will be provided due to her I be unable to guard her secretions without sternal rub we will continue to follow spasm is concerned she has a urinary tract infection urinalysis will be obtained as well as a chest x-ray as patient has reportedly had a fever last several days. Lab Data : 11/17/21 16:07 11/17/21 16:07 Radiology Impressions Chest X-Ray 11/17/21 17:25 IMPRESSION: 1. No acute cardiopulmonary process. 2. Incidental/nonacute findings are listed in the report. Head CT 11/17/21 17:25 IMPRESSION: 1. No acute abnormality of the brain. 2. Stable mild atrophy of the brain parenchyma. 3. Stable mild chronic white matter microangiopathic change. 4. Incidental/nonacute findings are listed in the report. Laboratory Results WBC 7.6 10^3/uL (4.0-10.0) 11/17/21 16:07 RBC 3.09 10^6/uL (4.1-5.3) L 11/17/21 16:07 Hgb 10.8 g/dL (11.5-15.3) L 11/17/21 16:07 Hct 31.3 % (37.0-47.0) L 11/17/21 16:07 MCV 101.3 fl (81-99) H 11/17/21 16:07 MCH 35.0 pg (28.0-34.0) H 11/17/21 16:07 MCHC 34.5 g/dL (30.0-36.0) 11/17/21 16:07 RDW 14.4 % (12.1-15.1) 11/17/21 16:07 Plt Count 215 10^3/cmm (130-400) 11/17/21 16:07 MPV 10.2 fL (7.4-10.4) 11/17/21 16:07 Neut % (Auto) 68.9 % 11/17/21 16:07 Lymph % (Auto) 21.3 % 11/17/21 16:07 [place] % (Auto) 7.4 % 11/17/21 16:07 Eos % (Auto) 0.9 % 11/17/21 16:07 Baso % (Auto) 0.8 % 11/17/21 16:07 Neut # (Auto) 5.23 10^3/uL (1.8-7.7) 11/17/21 16:07 Lymph # (Auto) 1.6 10^3/uL (0.8-4.8) 11/17/21 16:07 [place] # (Auto) 0.6 10^3/uL (0.2-0.9) 11/17/21 16:07 Eos # (Auto) 0.1 10^3/uL (0.0-0.8) 11/17/21 16:07 Baso # (Auto) 0.1 10^3/uL (0.0-0.1) 11/17/21 16:07 Nucleated RBC % (auto) 0 % 11/17/21 16:07 Nucleated RBCs # 0.0 /100WBC 11/17/21 16:07 Sodium 135 mmol/L (136-145) L 11/17/21 16:07 Potassium 4.5 mmol/L (3.5-5.1) 11/17/21 16:07 Chloride 93 mmol/L (98-107) L 11/17/21 16:07 Carbon Dioxide 28 mmol/L (22-29) 11/17/21 16:07 Anion Gap 18.5 (5-19) 11/17/21 16:07 BUN 23 mg/dL (8-23) 11/17/21 16:07 Creatinine 1.1 mg/dL (0.5-0.9) H 11/17/21 16:07 GFR Calculation Not Reportable 11/17/21 16:07 Glucose 303 mg/dL (65-115) H 11/17/21 16:07 Calculated Osmolality 295 mOsm/kg (285-295) 11/17/21 16:07 Calcium 10.8 mg/dL (8.5-10.5) H 11/17/21 16:07 Total Bilirubin 0.5 mg/dL (0.15-1.2) 11/17/21 16:07 AST 30 U/L (0-32) 11/17/21 16:07 ALT 27 U/L (0-33) 11/17/21 16:07 Alkaline Phosphatase 116 IU/L (35-105) H 11/17/21 16:07 Troponin T Baseline 27 ng/L (0-10) H 11/17/21 16:07 C-Reactive Protein 4.0 mg/L (0.0-4.9) 11/17/21 16:07 Total Protein 7.0 g/dL (6.6-8.7) 11/17/21 16:07 Albumin 4.0 g/dL (3.5-5.2) 11/17/21 16:07 Globulin 3.0 g/dL (1.3-4.6) 11/17/21 16:07 Urine Color Yellow (Yellow) 11/17/21 16:55 Urine Appearance Clear (CLEAR) 11/17/21 16:55 Urine pH 6 (5-7) 11/17/21 16:55 Ur Specific [place] 1.020 (1.005-1.030) 11/17/21 16:55 Urine Protein 1+ (Negative) H 11/17/21 16:55 Urine Glucose (UA) 2+ (Normal) H 11/17/21 16:55 Urine Ketones Negative (Negative) 11/17/21 16:55 Urine Blood Neg (Negative) 11/17/21 16:55 Urine Nitrate Negative (Negative) 11/17/21 16:55 Urine Bilirubin 1+ (Negative) H 11/17/21 16:55 Urine Urobilinogen Norm mg/dL (Negative) 11/17/21 16:55 Ur Leukocyte Esterase Negative (Negative) 11/17/21 16:55 Urine RBC None /hpf (0-2) 11/17/21 16:55 Urine WBC 0-4 /hpf (0-5) H 11/17/21 16:55 Ur Squamous Epith Cells 0-4 /hpf (0-5) H 11/17/21 16:55 Amorphous Sediment Not Reportable 11/17/21 16:55 Urine Bacteria Trace /hpf (NONE) 11/17/21 16:55 Hyaline Casts 0-4 /lpf H 11/17/21 16:55 Urine Mucus 1+ /hpf 11/17/21 16:55 Urine Opiates Screen Positive ng/mL (Negative) H 11/17/21 16:55 Ur Barbiturates Screen Negative ng/mL (Negative) 11/17/21 16:55 Ur Phencyclidine Scrn Negative ng/mL (Negative) 11/17/21 16:55 Ur Amphetamines Screen Negative ng/mL (Negative) 11/17/21 16:55 U Benzodiazepines Scrn Negative ng/mL (Negative) 11/17/21 16:55 Urine Cocaine Screen Negative ng/mL (Negative) 11/17/21 16:55 U Marijuana (THC) Screen Negative ng/mL (Negative) 11/17/21 16:55 Discharge Plan Discharge Patient Disposition: Home Clinical Impression: Weakness Condition: Stable Prescriptions: No Action Humira Pen 40 mg/0.8 mL pen injector kit 40 mg SUBCUT Q14D Qty: 2 3RF Hold Instructions: Resume on 08/02/21. Rx Instructions: TAKES ON SATURDAYS EVERY 14 DAYS methotrexate sodium 2.5 mg tablet 7.5 mg PO Q7D Qty: 15 3RF Rx Instructions: ON SATURDAYS duloxetine 60 mg capsule,delayed release(DR/EC) 60 mg PO DAILY@08 Qty: 90 0RF Rx Instructions: Take one capsule by mouth every morning folic acid 1 mg tablet 1 mg PO DAILY@08 Qty: 90 1RF nitroglycerin [Nitrostat] 0.4 mg tablet, sublingual 0.4 mg SUBLINGUAL Q5M PRN (Reason: Chest Pain) Qty: 30 3RF Rx Instructions: MAX 3 DOSES PER EPISODE hydrocodone-acetaminophen 7.5-325 mg tablet 1 tab PO TID PRN (Reason: pain) 30 Days Qty: 90 0RF tizanidine 4 mg tablet 4 mg PO TID PRN (Reason: muscle spasticity) 30 Days Qty: 90 1RF levothyroxine [Euthyrox] 150 mcg tablet 150 mcg PO QAM 0RF calcium carbonate [Calcium 600] 600 mg calcium (1,500 mg) tablet 600 mg PO DAILY 0RF methylsulfonylmethane [MSM] 1,000 mg tablet 1,000 mg PO BID 0RF digoxin 125 mcg (0.125 mg) tablet 125 mcg PO DIRECTED Qty: 75 3RF Rx Instructions: Alternate 1/2 Tab daily, next day 1 tab acetaminophen [Arthritis Pain Reliever] 650 mg Tablet Extended Release 650 mg PO Q4H PRN (Reason: Pain) 0RF cholecalciferol (vitamin D3) [Vitamin D3] 25 mcg (1,000 unit) Tablet 2,000 unit PO DAILY@08 0RF albuterol sulfate 2.5 mg /3 mL (0.083 %) Solution For Nebulization 2.5 mg inhalation TID PRN (Reason: Shortness Of Breath) 0RF Novolin 70/30 U-100 Insulin 100 unit/mL (70-30) suspension See Rx Instructions .ROUTE .COMPLEX 0RF Rx Instructions: 55 units subcutaneously qam and 35 units qpm albuterol sulfate 90 mcg/actuation Hfa Aerosol Inhaler 2 puff INHALATION Q6H PRN (Reason: Shortness Of Breath) 0RF docusate sodium [Stool Softener] 250 mg Capsule 250 mg PO BEDTIME 0RF cyanocobalamin (vitamin B-12) [Vitamin B-12] 500 mcg Tablet 500 mcg PO DAILY 0RF chlorpheniramine maleate [ChlorTabs] 4 mg Tablet See Rx Instructions .ROUTE .COMPLEX 0RF Rx Instructions: 4 mg orally TID THEN ALTERNATES WITH BENADRYL THEN NEXT DAY prednisolone acetate 1 % Drops,Suspension 1 drp ophthalmic (eye) PRN 0RF Rx Instructions: IN RIGHT EYE diphenhydramine HCl [Benadryl] 25 mg Capsule See Rx Instructions .ROUTE .COMPLEX 0RF Rx Instructions: 25MG PO TID THEN ALTERNATES WITH CHLORTAB THE NEXT DAY pyridostigmine bromide 60 mg Tablet 30 mg PO BID Qty: 60 4RF metoprolol tartrate 50 mg Tablet 100 mg PO BID@0900,2100 Qty: 60 3RF atorvastatin 80 mg tablet 80 mg PO BEDTIME 0RF lisinopril 40 mg tablet 40 mg PO QPM 0RF ferrous gluconate 324 mg (37.5 mg iron) tablet See Rx Instructions .ROUTE .COMPLEX 0RF Rx Instructions: ALTERNATE 1 TABLET DAILY WITH 2 TABLETS DAILY magnesium L-lactate 84 mg tablet extended release 84 mg PO BID 0RF ferrous sulfate [FeroSul] 325 mg (65 mg iron) tablet See Rx Instructions .ROUTE .COMPLEX 0RF Rx Instructions: 325mg po on sun,mon,wed and fri furosemide 20 mg tablet 10 mg PO EVERY OTHER DAY 0RF insulin lispro 100 unit/mL insulin pen See Rx Instructions .ROUTE .COMPLEX 0RF Rx Instructions: SLIDING SCALE before meals AND BEDTIME-MAX OF 40 UNITS PER DAY 150-200= 0 units 201-250= 2 units 251-300= 4 units 301-350= 6 units 351-400= 8 units sulfasalazine 500 mg tablet 500 mg PO BID@ 0RF prednisone 2.5 mg tablet 2.5 mg PO QAM 0RF diltiazem HCl 120 mg capsule,extended release 24hr 120 mg PO QAM 0RF potassium chloride 20 mEq tablet extended release 20 meq PO BID 0RF tramadol 50 mg tablet 50 mg PO TID 0RF pantoprazole 40 mg tablet,delayed release (DR/EC) 40 mg PO BID 0RF Discharge Orders: Discharge ED (Routine); Ordered 11/17/21 Ordered By: Karma Garner Referrals: Davion Griggs MD [Primary Care Provider] - Discharge Diet: Advance as tolerated Discharge Activity: Resume usual activity Patient Instructions: Weakness (ED) Coding Level of Care Code ED Compliance Counsel for Chg Fwd Exam Comprehensive Documented by User: Karma Garner MD 11/17/21 21:16 HPI - Weakness General: Chief complaint: Weakness Stated complaint: GENERAL WEAKNESS, PAIN EVERYWHERE Time Seen by Provider: 11/17/21 16:53 PFSH ED PFSH: Medical History Anxiety and depression CHF exacerbation Chronic knee pain Chronic low back pain COPD (chronic obstructive pulmonary disease) Oxygen dependent, 2 L at baseline Coronary artery disease COVID-14 August 2020 Duodenal ulcer due to bacteria Fibromyalgia High risk medication use Hyperlipidemia Hypertension Hypothyroidism Immunization counseling Inflammatory arthritis Intermittent atrial fibrillation Because the patient history of frequent fall she was thought to be high risk for bleeding complications. So she is taking only the aspirin at this time. SHE HAS EASY BRUISING WELL Left renal mass Liver cirrhosis Low back pain of over 3 months duration Lung nodule Narrow complex tachycardia Osteoarthritis of knees, bilateral Poorly controlled diabetes mellitus Psychiatric care Recurrent UTI Seronegative rheumatoid arthritis of both hands Unstable angina Urgency incontinence UTI (urinary tract infection) Surgical History History of cardiac cath History of cholecystectomy History of hysterectomy History of knee replacement History of thyroid surgery Family History Other CAD (coronary artery disease) Cancer Denies family history of Anesthesia complication Bleeding disorder Social History Smoking and tobacco status: former smoker Quit status (tobacco): has quit using tobacco Year quit tobacco: 2005 Second hand smoke exposure: No Alcohol intake: never Adopted: No Caregiver/support person: No Lives independently: No Household members: spouse Marital status: Current occupational status: retired History of recent travel: No Current gender identity: Female Course Vital Signs: Vital signs: Vital Signs Temperature 98.4 F 11/17/21 16:32 Pulse Rate 110 H 11/17/21 20:32 Respiratory Rate 18 11/17/21 20:32 Blood Pressure 139/91 11/17/21 20:38 Pulse Oximetry 100 11/17/21 20:32 MDM - Weakness Medical Decision Making Due to the patient's symptom condition I will be established lab work and imaging will be obtained small dose of Narcan will be provided due to her I be unable to guard her secretions without sternal rub we will continue to follow spasm is concerned she has a urinary tract infection urinalysis will be obtained as well as a chest x-ray as patient has reportedly had a fever last several days. Patient presents here with weakness has been seen here multiple times for the same this is likely medication related check she has follow-up with her PCP to my own I informed her she needs to go over her medication list with her PCP she is much more awake here she is stable for discharge with . Lab Data : 11/17/21 16:07 11/17/21 16:07 Radiology Impressions Chest X-Ray 11/17/21 17:25 IMPRESSION: 1. No acute cardiopulmonary process. 2. Incidental/nonacute findings are listed in the report. Head CT 11/17/21 17:25 IMPRESSION: 1. No acute abnormality of the brain. 2. Stable mild atrophy of the brain parenchyma. 3. Stable mild chronic white matter microangiopathic change. 4. Incidental/nonacute findings are listed in the report. Laboratory Results WBC 7.6 10^3/uL (4.0-10.0) 11/17/21 16:07 RBC 3.09 10^6/uL (4.1-5.3) L 11/17/21 16:07 Hgb 10.8 g/dL (11.5-15.3) L 11/17/21 16:07 Hct 31.3 % (37.0-47.0) L 11/17/21 16:07 MCV 101.3 fl (81-99) H 11/17/21 16:07 MCH 35.0 pg (28.0-34.0) H 11/17/21 16:07 MCHC 34.5 g/dL (30.0-36.0) 11/17/21 16:07 RDW 14.4 % (12.1-15.1) 11/17/21 16:07 Plt Count 215 10^3/cmm (130-400) 11/17/21 16:07 MPV 10.2 fL (7.4-10.4) 11/17/21 16:07 Neut % (Auto) 68.9 % 11/17/21 16:07 Lymph % (Auto) 21.3 % 11/17/21 16:07 [place] % (Auto) 7.4 % 11/17/21 16:07 Eos % (Auto) 0.9 % 11/17/21 16:07 Baso % (Auto) 0.8 % 11/17/21 16:07 Neut # (Auto) 5.23 10^3/uL (1.8-7.7) 11/17/21 16:07 Lymph # (Auto) 1.6 10^3/uL (0.8-4.8) 11/17/21 16:07 [place] # (Auto) 0.6 10^3/uL (0.2-0.9) 11/17/21 16:07 Eos # (Auto) 0.1 10^3/uL (0.0-0.8) 11/17/21 16:07 Baso # (Auto) 0.1 10^3/uL (0.0-0.1) 11/17/21 16:07 Nucleated RBC % (auto) 0 % 11/17/21 16:07 Nucleated RBCs # 0.0 /100WBC 11/17/21 16:07 Sodium 135 mmol/L (136-145) L 11/17/21 16:07 Potassium 4.5 mmol/L (3.5-5.1) 11/17/21 16:07 Chloride 93 mmol/L (98-107) L 11/17/21 16:07 Carbon Dioxide 28 mmol/L (22-29) 11/17/21 16:07 Anion Gap 18.5 (5-19) 11/17/21 16:07 BUN 23 mg/dL (8-23) 11/17/21 16:07 Creatinine 1.1 mg/dL (0.5-0.9) H 11/17/21 16:07 GFR Calculation Not Reportable 11/17/21 16:07 Glucose 303 mg/dL (65-115) H 11/17/21 16:07 Calculated Osmolality 295 mOsm/kg (285-295) 11/17/21 16:07 Calcium 10.8 mg/dL (8.5-10.5) H 11/17/21 16:07 Total Bilirubin 0.5 mg/dL (0.15-1.2) 11/17/21 16:07 AST 30 U/L (0-32) 11/17/21 16:07 ALT 27 U/L (0-33) 11/17/21 16:07 Alkaline Phosphatase 116 IU/L (35-105) H 11/17/21 16:07 Troponin T Baseline 27 ng/L (0-10) H 11/17/21 16:07 C-Reactive Protein 4.0 mg/L (0.0-4.9) 11/17/21 16:07 Total Protein 7.0 g/dL (6.6-8.7) 11/17/21 16:07 Albumin 4.0 g/dL (3.5-5.2) 11/17/21 16:07 Globulin 3.0 g/dL (1.3-4.6) 11/17/21 16:07 Urine Color Yellow (Yellow) 11/17/21 16:55 Urine Appearance Clear (CLEAR) 11/17/21 16:55 Urine pH 6 (5-7) 11/17/21 16:55 Ur Specific [place] 1.020 (1.005-1.030) 11/17/21 16:55 Urine Protein 1+ (Negative) H 11/17/21 16:55 Urine Glucose (UA) 2+ (Normal) H 11/17/21 16:55 Urine Ketones Negative (Negative) 11/17/21 16:55 Urine Blood Neg (Negative) 11/17/21 16:55 Urine Nitrate Negative (Negative) 11/17/21 16:55 Urine Bilirubin 1+ (Negative) H 11/17/21 16:55 Urine Urobilinogen Norm mg/dL (Negative) 11/17/21 16:55 Ur Leukocyte Esterase Negative (Negative) 11/17/21 16:55 Urine RBC None /hpf (0-2) 11/17/21 16:55 Urine WBC 0-4 /hpf (0-5) H 11/17/21 16:55 Ur Squamous Epith Cells 0-4 /hpf (0-5) H 11/17/21 16:55 Amorphous Sediment Not Reportable 11/17/21 16:55 Urine Bacteria Trace /hpf (NONE) 11/17/21 16:55 Hyaline Casts 0-4 /lpf H 11/17/21 16:55 Urine Mucus 1+ /hpf 11/17/21 16:55 Urine Opiates Screen Positive ng/mL (Negative) H 11/17/21 16:55 Ur Barbiturates Screen Negative ng/mL (Negative) 11/17/21 16:55 Ur Phencyclidine Scrn Negative ng/mL (Negative) 11/17/21 16:55 Ur Amphetamines Screen Negative ng/mL (Negative) 11/17/21 16:55 U Benzodiazepines Scrn Negative ng/mL (Negative) 11/17/21 16:55 Urine Cocaine Screen Negative ng/mL (Negative) 11/17/21 16:55 U Marijuana (THC) Screen Negative ng/mL (Negative) 11/17/21 16:55 Discharge Plan Discharge Patient Disposition: Home Clinical Impression: Weakness Condition: Stable Prescriptions: No Action Humira Pen 40 mg/0.8 mL pen injector kit 40 mg SUBCUT Q14D Qty: 2 3RF Hold Instructions: Resume on 08/02/21. Rx Instructions: TAKES ON SATURDAYS EVERY 14 DAYS methotrexate sodium 2.5 mg tablet 7.5 mg PO Q7D Qty: 15 3RF Rx Instructions: ON SATURDAYS duloxetine 60 mg capsule,delayed release(DR/EC) 60 mg PO DAILY@08 Qty: 90 0RF Rx Instructions: Take one capsule by mouth every morning folic acid 1 mg tablet 1 mg PO DAILY@08 Qty: 90 1RF nitroglycerin [Nitrostat] 0.4 mg tablet, sublingual 0.4 mg SUBLINGUAL Q5M PRN (Reason: Chest Pain) Qty: 30 3RF Rx Instructions: MAX 3 DOSES PER EPISODE hydrocodone-acetaminophen 7.5-325 mg tablet 1 tab PO TID PRN (Reason: pain) 30 Days Qty: 90 0RF tizanidine 4 mg tablet 4 mg PO TID PRN (Reason: muscle spasticity) 30 Days Qty: 90 1RF levothyroxine [Euthyrox] 150 mcg tablet 150 mcg PO QAM 0RF calcium carbonate [Calcium 600] 600 mg calcium (1,500 mg) tablet 600 mg PO DAILY 0RF methylsulfonylmethane [MSM] 1,000 mg tablet 1,000 mg PO BID 0RF digoxin 125 mcg (0.125 mg) tablet 125 mcg PO DIRECTED Qty: 75 3RF Rx Instructions: Alternate 1/2 Tab daily, next day 1 tab acetaminophen [Arthritis Pain Reliever] 650 mg Tablet Extended Release 650 mg PO Q4H PRN (Reason: Pain) 0RF cholecalciferol (vitamin D3) [Vitamin D3] 25 mcg (1,000 unit) Tablet 2,000 unit PO DAILY@08 0RF albuterol sulfate 2.5 mg /3 mL (0.083 %) Solution For Nebulization 2.5 mg inhalation TID PRN (Reason: Shortness Of Breath) 0RF Novolin 70/30 U-100 Insulin 100 unit/mL (70-30) suspension See Rx Instructions .ROUTE .COMPLEX 0RF Rx Instructions: 55 units subcutaneously qam and 35 units qpm albuterol sulfate 90 mcg/actuation Hfa Aerosol Inhaler 2 puff INHALATION Q6H PRN (Reason: Shortness Of Breath) 0RF docusate sodium [Stool Softener] 250 mg Capsule 250 mg PO BEDTIME 0RF cyanocobalamin (vitamin B-12) [Vitamin B-12] 500 mcg Tablet 500 mcg PO DAILY 0RF chlorpheniramine maleate [ChlorTabs] 4 mg Tablet See Rx Instructions .ROUTE .COMPLEX 0RF Rx Instructions: 4 mg orally TID THEN ALTERNATES WITH BENADRYL THEN NEXT DAY prednisolone acetate 1 % Drops,Suspension 1 drp ophthalmic (eye) PRN 0RF Rx Instructions: IN RIGHT EYE diphenhydramine HCl [Benadryl] 25 mg Capsule See Rx Instructions .ROUTE .COMPLEX 0RF Rx Instructions: 25MG PO TID THEN ALTERNATES WITH CHLORTAB THE NEXT DAY pyridostigmine bromide 60 mg Tablet 30 mg PO BID Qty: 60 4RF metoprolol tartrate 50 mg Tablet 100 mg PO BID@0900,2100 Qty: 60 3RF atorvastatin 80 mg tablet 80 mg PO BEDTIME 0RF lisinopril 40 mg tablet 40 mg PO QPM 0RF ferrous gluconate 324 mg (37.5 mg iron) tablet See Rx Instructions .ROUTE .COMPLEX 0RF Rx Instructions: ALTERNATE 1 TABLET DAILY WITH 2 TABLETS DAILY magnesium L-lactate 84 mg tablet extended release 84 mg PO BID 0RF ferrous sulfate [FeroSul] 325 mg (65 mg iron) tablet See Rx Instructions .ROUTE .COMPLEX 0RF Rx Instructions: 325mg po on sun,mon,wed and fri furosemide 20 mg tablet 10 mg PO EVERY OTHER DAY 0RF insulin lispro 100 unit/mL insulin pen See Rx Instructions .ROUTE .COMPLEX 0RF Rx Instructions: SLIDING SCALE before meals AND BEDTIME-MAX OF 40 UNITS PER DAY 150-200= 0 units 201-250= 2 units 251-300= 4 units 301-350= 6 units 351-400= 8 units sulfasalazine 500 mg tablet 500 mg PO BID@08,17 0RF prednisone 2.5 mg tablet 2.5 mg PO QAM 0RF diltiazem HCl 120 mg capsule,extended release 24hr 120 mg PO QAM 0RF potassium chloride 20 mEq tablet extended release 20 meq PO BID 0RF tramadol 50 mg tablet 50 mg PO TID 0RF pantoprazole 40 mg tablet,delayed release (DR/EC) 40 mg PO BID 0RF Discharge Orders: Discharge ED (Routine); Ordered 11/17/21 Ordered By: Karma Garner Referrals: Davion Griggs MD [Primary Care Provider] - Discharge Diet: Advance as tolerated Discharge Activity: Resume usual activity Patient Instructions: Weakness (ED) Coding Level of Care Code ED Compliance Counsel for Chg Fwd Exam Comprehensive
--- NOTE | 2021-11-17 17:25 | CTR_ITS ---
PROCEDURE INFORMATION: Exam: CT Head Without Contrast Exam date and time: 11/17/2021 5:54 PM Age: 71 years old Clinical indication: Altered mental status/memory loss; Confusion or disorientation; Additional info: Altered mental status with recent falls TECHNIQUE: Imaging protocol: Computed tomography of the head without contrast. Sagittal and coronal reformatted images were created and reviewed. Radiation optimization: All CT scans at this facility use at least one of these dose optimization techniques: automated exposure control; mA and/or kV adjustment per patient size (includes targeted exams where dose is matched to clinical indication); or iterative reconstruction. COMPARISON: CT head wo con* [id number] 11/03/2021 11:05 PM RADIATION DOSE METRICS: Total DLP (mGy-cm): 1929.64 FINDINGS: Brain: No acute intracranial hemorrhage. No acute infarct. No intra-axial or extra-axial masses. Garcia-white matter differentiation is preserved. No cerebral edema. No extra-axial fluid collections. No midline shift. No evidence for Chiari 1 malformation. Stable mild atrophy of the brain parenchyma. Stable mildly decreased attenuation in the deep white matter, consistent with mild chronic microangiopathic change. Right basal ganglia calcifications. Cerebral ventricles: No hydrocephalus. Paranasal sinuses: Paranasal sinuses are clear. Mastoid air cells: Mastoid air cells are clear bilaterally. Orbital cavities: Globes and lenses, extraocular muscles, and optic nerves are intact bilaterally. No acute intraorbital abnormality. Vasculature: Atherosclerotic changes in the visualized arteries. Bones/joints: No acute fracture. Soft tissues: No acute abnormality of the extracranial soft tissues. CT/CT head wo con* [id number] IMPRESSION: 1. No acute abnormality of the brain. 2. Stable mild atrophy of the brain parenchyma. 3. Stable mild chronic white matter microangiopathic change. 4. Incidental/nonacute findings are listed in the report.
--- NOTE | 2021-11-17 17:25 | XRR_ITS ---
PROCEDURE INFORMATION: Exam: XR Chest Exam date and time: 11/17/2021 5:37 PM Age: 71 years old Clinical indication: Shortness of breath; Additional info: Altered mental status TECHNIQUE: Imaging protocol: XR of the chest. Views: 1 view. Other technique: The patient is rotated to the right. COMPARISON: CR XR chest 1V portable [id number] 11/04/2021 4:10 PM FINDINGS: Lungs: Stable calcified granuloma in the the left lower lobe. Pleural spaces: No pleural effusion. No pneumothorax. Heart/Mediastinum: Stable moderate enlargement of the cardiac silhouette. Mediastinal contours are unremarkable. Vasculature: Stable vascular calcifications in the aorta. Bones/joints: Unremarkable for age. XR/XR chest 1V portable [id number] IMPRESSION: 1. No acute cardiopulmonary process. 2. Incidental/nonacute findings are listed in the report.
--- NOTE | 2021-11-17 17:27 | ECG_ITS ---
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 Measurements Intervals [place] Rate: 49 P: [place]: QRS: -63 QRSD: 161 T: 77 QT: 467 QTc: 426 Interpretive Statements ATRIAL FIBRILLATION WITH SLOW VENTRICULAR RESPONSE RIGHT BUNDLE BRANCH BLOCK [120+ ms QRS DURATION, UPRIGHT V1, 40+ ms S IN I/aVL/V4/V5/V6] LEFT ANTERIOR FASCICULAR BLOCK [QRS AXIS <= -45, QR IN I, RS IN II] LEFT VENTRICULAR HYPERTROPHY AND ST-T CHANGE [VOLTAGE CRITERIA PLUS ST/T ABNORMALITY] POSSIBLE SEPTAL MYOCARDIAL INFARCTION , OF INDETERMINATE AGE [30 ms Q WAVE IN V1/V2] Compared to ECG 11/04/2021 17:54:10 ST (T wave) deviation now present Sinus rhythm no longer present First degree AV block no longer present Electronically Signed On 11-17-2021 21:27:23 CDT by Victoriano White M.D. [id number] f
[2021-11-17 17:34] LABS: Basophils # 0.1 10^3/uL (0.0-0.1); Basophils % 0.8 %; Eosinophils # 0.1 10^3/uL (0.0-0.8); Eosinophils % 0.9 %; Hematocrit 31.3 % (37.0-47.0); Hemoglobin 10.8 g/dL (11.5-15.3); Lymphocytes # 1.6 10^3/uL (0.8-4.8); Lymphocytes % 21.3 %; Mean Corpuscular HGB Conc 34.5 g/dL (30.0-36.0); Mean Corpuscular Volume 101.3 fl (81-99); Mean Platelet Volume 10.2 fL (7.4-10.4); Monocytes # 0.6 10^3/uL (0.2-0.9); Monocytes % 7.4 %; Neutrophils # 5.23 10^3/uL (1.8-7.7); Neutrophils % 68.9 %; Nucleated Red Blood Cells % 0 %; Platelet Count 215 10^3/cmm (130-400); Red Blood Count 3.09 10^6/uL (4.1-5.3); Red Cell Distribution Width 14.4 % (12.1-15.1); White Blood Count 7.6 10^3/uL (4.0-10.0)
[2021-11-17 17:44] LABS: Troponin(5th) Baseline 27 ng/L (0-10)
[2021-11-17 17:45] LABS: Alanine Aminotransferase 27 U/L (0-33); Alkaline Phosphatase 116 IU/L (35-105); Anion Gap 18.5 (5-19); Aspartate Amino Transferase 30 U/L (0-32); Blood Urea Nitrogen 23 mg/dL (8-23); Calcium 10.8 mg/dL (8.5-10.5); Carbon Dioxide 28 mmol/L (22-29); Chloride 93 mmol/L (98-107); Glucose 303 mg/dL (65-115); Osmolality Calculated 295 mOsm/kg (285-295); Potassium 4.5 mmol/L (3.5-5.1); Sodium 135 mmol/L (136-145); Total Bilirubin 0.5 mg/dL (0.15-1.2)
[2021-11-17] MEDS: sodium chloride 0.9% 1,000 ML 999 ML IV (18:13)
[2021-11-17 19:18] LABS: Urine Appearance Clear (CLEAR); Urine Color Yellow (Yellow); pH Urine 6 (5-7)
[2021-11-17 19:19] LABS: Bilirubin Urine 1+ (Negative); Blood Urine Neg (Negative); Glucose Urine UA 2+ (Normal); Ketones Urine Negative (Negative); Leukocyte Esterase Urine Negative (Negative); Nitrate Urine Negative (Negative); Protein Urine 1+ (Negative); Urobilinogen Urine Norm (Negative)
[2021-11-17 19:27] LABS: Amphetamines Screen Urine Negative (Negative); Barbiturates Screen Urine Negative (Negative); Benzodiazepines Screen Urine Negative (Negative); Cocaine Screen Urine Negative (Negative); Opiate Screen Urine Positive (Negative); PCP Screen Urine Negative (Negative); THC Screen Urine Negative (Negative)
[2021-11-17 19:34] LABS: Add Urine Microscopic? YES
[2021-11-17 19:35] LABS: Add Urine Culture? No; Bacteria Urine TRACE /hpf; Hyaline Casts Urine 0-4 /lpf; Mucus Urine 1+ /hpf; Squamous Epithelial Cell Urine 0-4 /hpf (0-5); WBC Urine 0-4 /hpf (0-5)
--- NOTE | 2021-11-17 19:42 | PC.NURSE ---
Chris Robb per Dr. Garner. Documented as not given by this RN.
[2021-11-17 20:20] VITALS: BP 157/93; PULSE 110; RESP 16; O2SAT 100
[2021-11-17] MEDS: labetalol 5 mg/mL SDV 20mL 10 MG IVP (20:22)
[2021-11-17 20:23] VITALS: BP 138/63; PULSE 108; RESP 20; O2SAT 100
[2021-11-17 20:32] VITALS: BP 102/65; PULSE 110; RESP 18; O2SAT 100
[2021-11-17 20:38] VITALS: BP 139/91
== END 2021-11-17 20:50 | disposition home or self-care (01) ==
PROVIDERS: Emergency Medicine; Emergency Provider Emergency Medicine; PCP Family Medicine
DX: R53.1 Weakness (principal); Z79.4 Long term (current) use of insulin; J44.9 Chronic obstructive pulmonary disease, unspecified; I25.10 Atherosclerotic heart disease of native coronary artery without angina pectoris; Z99.81 Dependence on supplemental oxygen; E78.5 Hyperlipidemia, unspecified; I11.0 Hypertensive heart disease with heart failure; I50.9 Heart failure, unspecified; E11.9 Type 2 diabetes mellitus without complications; Z87.891 Personal history of nicotine dependence
CPT/HCPCS: 70450; 71045; 80053; 80306; 81001; 84484; 85025; 86140; 93005; 96361; 96374; 99284; J3490; J7030

== ENCOUNTER 2021-11-26 14:24 | Observation (INO) | payer MEDICARE, SELFPAY ==
[2021-11-26] VITALS (9 sets, daily range): BP systolic 164–208; BP diastolic 79–104; PULSE 76–102; RESP 12–22; TEMP 37.2; O2SAT 95–100; BMI 34.9
--- NOTE | 2021-11-26 14:26 | ECG_ITS ---
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 Measurements Intervals [place] Rate: 85 P: 7 FL: 208 QRS: -76 QRSD: 157 T: 29 QT: 467 QTc: 558 Interpretive Statements SINUS RHYTHM WITH OCCASIONAL VENTRICULAR PREMATURE COMPLEXES RIGHT BUNDLE BRANCH BLOCK [120+ ms QRS DURATION, UPRIGHT V1, 40+ ms S IN I/aVL/V4/V5/V6] LEFT ANTERIOR FASCICULAR BLOCK [QRS AXIS <= -45, QR IN I, RS IN II] VOLTAGE CRITERIA FOR LVH [MEETS CRITERIA IN ONE OF: R(aVL), S(V1), R(V5), R(V5/V6)+S(V1)] POSSIBLE SEPTAL MYOCARDIAL INFARCTION , OF INDETERMINATE AGE [30 ms Q WAVE IN V1/V2] INTERPRETATION BASED ON A DEFAULT AGE OF 40 YEARS Compared to ECG 11/26/2021 14:30:40 Ventricular premature complex(es) now present Myocardial infarct finding still present Electronically Signed On 11-27-2021 9:36:37 CDT by Min Tipton M.D. [id number] paul
--- NOTE | 2021-11-26 14:26 | XRR_ITS ---
PROCEDURE INFORMATION: Exam: XR Chest Exam date and time: 11/26/2021 2:38 PM Age: 71 years old Clinical indication: Patient HX: C/O cp w HTN; Additional info: Chest pain TECHNIQUE: Imaging protocol: XR of the chest. Views: 1 view. COMPARISON: CR (CHEST, ) 11/17/2021 5:37 PM FINDINGS: Lungs: Unremarkable. No consolidation. Pleural spaces: Unremarkable. No pleural effusion. No pneumothorax. Heart/Mediastinum: Unremarkable. No cardiomegaly. Bones/joints: Unremarkable. XR/XR chest 1V portable [id number] IMPRESSION: No acute findings.
[2021-11-26 14:41] LABS: Basophils % 0.2 %; Eosinophils % 0.2 %; Hematocrit 35.6 % (37.0-47.0); Hemoglobin 12.4 g/dL (11.5-15.3); Lymphocytes # 0.6 10^3/uL (0.8-4.8); Lymphocytes % 7.3 %; Mean Corpuscular HGB Conc 34.8 g/dL (30.0-36.0); Mean Corpuscular Hemoglobin 34.3 pg (28.0-34.0); Mean Corpuscular Volume 98.6 fl (81-99); Mean Platelet Volume 9.4 fL (7.4-10.4); Monocytes # 0.4 10^3/uL (0.2-0.9); Neutrophils # 7.65 10^3/uL (1.8-7.7); Neutrophils % 86.8 %; Nucleated Red Blood Cells % 0.2 %; Platelet Count 237 10^3/cmm (130-400); Red Blood Count 3.61 10^6/uL (4.1-5.3); Red Cell Distribution Width 13.9 % (12.1-15.1); White Blood Count 8.8 10^3/uL (4.0-10.0)
[2021-11-26 14:43] LABS: Glucose Point of Care 465 mg/dL (70-110)
[2021-11-26 16:01] LABS: Alanine Aminotransferase 28 U/L (0-33); Albumin Level 4.1 g/dL (3.5-5.2); Alkaline Phosphatase 99 IU/L (35-105); Anion Gap 19.1 (5-19); Aspartate Amino Transferase 31 U/L (0-32); Blood Urea Nitrogen 24 mg/dL (8-23); Calcium 10.3 mg/dL (8.5-10.5); Carbon Dioxide 31 mmol/L (22-29); Chloride 85 mmol/L (98-107); Creatine Phosphokinase 29 U/L (26-192); Globulin 3.4 g/dL (1.3-4.6); Glucose 445 mg/dL (65-115); Osmolality Calculated 297 mOsm/kg (285-295); Potassium 3.1 mmol/L (3.5-5.1); Sodium 132 mmol/L (136-145); Total Bilirubin 0.7 mg/dL (0.15-1.2); Total Protein 7.5 g/dL (6.6-8.7); Troponin(5th) Baseline 21 ng/L (0-10)
--- NOTE | 2021-11-26 16:26 | ECG_ITS ---
[facility] Test Date: 2021-11-26 Pat Name: Myesha Parker Department: Room: Gender: Female Tearer Press Clipping: : 1950 Requested By: Kenrick Al Order Number: [id number] Reading MD: Min Tipton M.D. Measurements Intervals [place] Rate: 94 P: 128 NC: 207 QRS: -80 QRSD: 158 T: 23 QT: 448 QTc: 562 Interpretive Statements SINUS RHYTHM WITH OCCASIONAL VENTRICULAR PREMATURE COMPLEXES RIGHT BUNDLE BRANCH BLOCK [120+ ms QRS DURATION, UPRIGHT V1, 40+ ms S IN I/aVL/V4/V5/V6] LEFT ANTERIOR FASCICULAR BLOCK [QRS AXIS <= -45, QR IN I, RS IN II] VOLTAGE CRITERIA FOR LVH [MEETS CRITERIA IN ONE OF: R(aVL), S(V1), R(V5), R(V5/V6)+S(V1)] POSSIBLE SEPTAL MYOCARDIAL INFARCTION , OF INDETERMINATE AGE [30 ms Q WAVE IN V1/V2] Compared to ECG 11/26/2021 16:24:58 No significant changes Electronically Signed On 11-27-2021 9:41:18 CDT by Min Tipton M.D. [id number]
--- NOTE | 2021-11-26 16:27 | ED_ITS ---
Documented by User: Kenrick Treviño DO 11/28/21 11:40 HPI - Chest Pain General: Chief Complaint: Chest Pain Stated Complaint: CHEST PAIN Time Seen by Provider: 11/26/21 14:24 Source: patient and family Mode of arrival: EMS History of Present Illness: 71-year-old female presents to the emergency room with complaint of chest pain. She was given sublingual nitro and aspirin in route she is not able really provide any history on arrival. On arrival here she will arouse to loud verbal stimuli denies any specific problems. Seems mildly confused. Is seen this patient the past overall she is approximately at her baseline MD complaint: chest heaviness Onset (ago): minute(s) Timing of current episode: episodic Onset: during rest Severity: mild Associated symptoms: Deny abdominal pain, diaphoresis, dyspnea, fever(s), leg e fabiana, nausea, palpitations, sense of impending doom, syncope or vomiting Treatment prior to arrival: none Review of Systems General: Reports: ROS unobtainable due to mental status (Difficult to obtain) Const: Denies: fever(s), chills, body aches or diaphoresis Card: Reports: chest pain (Patient unable to describe); Denies: palpitations or syncope Resp: Denies: dyspnea GI: Denies: abdominal pain, nausea or vomiting PFSH ED PFSH: Medical History Anxiety and depression CHF exacerbation Chronic knee pain Chronic low back pain COPD (chronic obstructive pulmonary disease) Oxygen dependent, 2 L at baseline Coronary artery disease COVID-14 August 2020 Duodenal ulcer due to bacteria Fibromyalgia High risk medication use Hyperlipidemia Hypertension Hypothyroidism Immunization counseling Inflammatory arthritis Intermittent atrial fibrillation Because the patient history of frequent fall she was thought to be high risk for bleeding complications. So she is taking only the aspirin at this time. SHE HAS EASY BRUISING WELL Left renal mass Liver cirrhosis Low back pain of over 3 months duration Lung nodule Narrow complex tachycardia Osteoarthritis of knees, bilateral Poorly controlled diabetes mellitus Psychiatric care Recurrent UTI Seronegative rheumatoid arthritis of both hands Unstable angina Urgency incontinence UTI (urinary tract infection) Surgical History History of cardiac cath History of cholecystectomy History of hysterectomy History of knee replacement History of thyroid surgery Family History Other CAD (coronary artery disease) Cancer Denies family history of Anesthesia complication Bleeding disorder Social History Smoking and tobacco status: former smoker Quit status (tobacco): has quit using tobacco Year quit tobacco: 2005 Second hand smoke exposure: No Alcohol intake: never Adopted: No Caregiver/support person: No Lives independently: No Household members: spouse Marital status: Current occupational status: retired History of recent travel: No Current gender identity: Female Female Reproductive History: Date of last menstrual period: 11/18/20 Physical Exam Const: COMMON NORMALS: no acute distress GENERAL APPEARANCE: cooperative and comfortable ORIENTATION/CONSCIOUSNESS: Yes awake, Yes oriented to person, Yes oriented to place and Yes oriented to time HENMT: COMMON NORMALS: normocephalic, atraumatic and hearing grossly normal bilaterally HEAD & SCALP: normocephalic and atraumatic Eye: COMMON NORMALS: EOMs intact bilaterally and conjunctivae normal CONJUNCTIVA: Yes conjunctivae normal Neck/C-Spine: COMMON NORMALS: no JVD Resp: COMMON NORMALS: normal respiratory effort, No retractions, No use of accessory muscles and clear to auscultation bilaterally AUSCULTATION: clear to auscultation bilaterally Cardio: COMMON NORMALS: no JVD, regular rate, regular rhythm and No murmurs present (Cardio) RATE: regular rate RHYTHM: regular rhythm GI: COMMON NORMALS: Soft to palpation and No hepatosplenomegaly present AUSCULTATION: Yes normoactive bowel sounds PALPATION: Yes Soft to palpation, No Tenderness to palpation present (GI), No Guarding due to palpation present (GI) and Yes No hepatosplenomegaly present Extremity: COMMON NORMALS: normal to inspection, capillary refill normal, no clubbing, cyanosis or edema, no calf tenderness and no pedal edema Neuro: SENSORIUM/ORIENTATION: Yes oriented to person, Yes oriented to place and Yes oriented to time Skin: COMMON NORMALS: no rashes or lesions noted GENERAL SKIN EXAM: no rashes or lesions noted Course Vital Signs: Vital signs: Vital Signs Temperature 98.0 F 11/28/21 07:16 Pulse Rate 61 11/28/21 11:22 Respiratory Rate 24 H 11/28/21 11:22 Blood Pressure 114/43 11/28/21 11:22 Pulse Oximetry 90 11/28/21 11:22 MDM - Chest Pain Medical Decision Making Care signed out to Dr. Rodríguez at change of shift. See final notes for diagnosis and disposition. 71-year-old female checked out to me by Dr. Treviño at shift change. This lady had come in with chest discomfort. She also had some mild mental status change s. Laboratory revealed a sodium of 132 and a potassium of 3.1. Creatinine is 1.2. Sugar was up to 445. She was given IV insulin, potassium. Her sugar improved somewhat after insulin. The patient was quite hypertensive, with highest pressure being in the 230s systolic. Multiple medications were given, with only transient improvement in the pressure. Her troponin did not elevate significantly at 2 hours, but there was concern for hypertensive urgency causing chest discomfort. She will be observed, placed back on her medication. Blood pressures will be trended. Troponin will be trended as well. Of note, the patient has had chills, and has some belly tenderness as well. CT of the belly is ordered, along with viral swabs. Medical Records I reviewed the patient's medical records. Lab Data I reviewed the patient's lab results. : 11/28/21 04:20 11/28/21 04:20 Radiology Impressions Chest X-Ray 11/26/21 14:26 IMPRESSION: No acute findings. Head CT 11/26/21 18:02 IMPRESSION: 1. No acute intracranial abnormality. 2. Moderate diffuse cerebral atrophy and sequela of chronic small vessel ischemic disease. Abdomen/Pelvis CT 11/26/21 21:05 IMPRESSION: 1. Nephrolithiasis not significantly changed 2. Possible cirrhosis not significantly changed. 3. Left breast lesion not significantly changed. 4. No acute findings. No significant change compared with 11/04/2021. Head/Neck CTA 11/27/21 10:32 IMPRESSION: No large vessel stenosis or occlusion. IMPRESSION: There is atherosclerotic plaque at the origin of the bilateral internal carotid arteries without significant stenosis. REFERENCES: NASCET CRITERIA. The degree of internal carotid artery stenosis is based on NASCET criteria. Normal is no stenosis. Mild is less than 50% stenosis. Moderate is 50-69% stenosis. Severe is 70% to 99% stenosis. Total occlusion is no detectable patent lumen. Laboratory Results WBC 8.8 10^3/uL (4.0-10.0) 11/26/21 14: RBC 3.61 10^6/uL (4.1-5.3) L 11/26/21 14:33 Hgb 12.4 g/dL (11.5-15.3) 11/26/21 14:33 Hct 35.6 % (37.0-47.0) L 11/26/21 14:33 MCV 98.6 fl (81-99) 11/26/21 14: MCH 34.3 pg (28.0-34.0) H 11/26/21 14: MCHC 34.8 g/dL (30.0-36.0) 11/26/21 14: RDW 13.9 % (12.1-15.1) 11/26/21 14: Plt Count 237 10^3/cmm (130-400) 11/26/21: MPV 9.4 fL (7.4-10.4) 11/26/21 14:33 Neut % (Auto) 86.8 % 11/26/21 14:33 Lymph % (Auto) 7.3 % 11/26/21 14:33 [place] % (Auto) 5.0 % 11/26/21:33 Eos % (Auto) 0.2 % 11/26/21 14:33 Baso % (Auto) 0.2 % 11/26/21 14:33 Neut # (Auto) 7.65 10^3/uL (1.8-7.7) 11/26/21 14:33 Lymph # (Auto) 0.6 10^3/uL (0.8-4.8) L 11/26/21 14:33 [place] # (Auto) 0.4 10^3/uL (0.2-0.9) 11/26/21 14:33 Eos # (Auto) 0.0 10^3/uL (0.0-0.8) 11/26/21 14:33 Baso # (Auto) 0.0 10^3/uL (0.0-0.1) 11/26/21 14:33 Nucleated RBC % (auto) 0.2 % 11/26/21 14:33 Nucleated RBCs # 0.0 /100WBC 11/26/21 14:33 Sodium 132 mmol/L (136-145) L 11/26/21 15:06 Potassium 3.1 mmol/L (3.5-5.1) L 11/26/21 15:06 Chloride 85 mmol/L (98-107) L 11/26/21 15:06 Carbon Dioxide 31 mmol/L (22-29) H 11/26/21 15:06 Anion Gap 19.1 (5-19) H 11/26/21 15:06 BUN 24 mg/dL (8-23) H 11/26/21 15:06 Creatinine 1.2 mg/dL (0.5-0.9) H 11/26/21 15:06 GFR Calculation Not Reportable 11/26/21 15:06 Glucose 445 mg/dL (65-115) H 11/26/21 15:06 POC Glucose 324 mg/dL (70-110) H 11/26/21 20:20 Calculated Osmolality 297 mOsm/kg (285-295) H 11/26/21 15:06 Calcium 10.3 mg/dL (8.5-10.5) 11/26/21 15:06 Total Bilirubin 0.7 mg/dL (0.15-1.2) 11/26/21 15:06 AST 31 U/L (0-32) 11/26/21 15:06 ALT 28 U/L (0-33) 11/26/21 15:06 Alkaline Phosphatase 99 IU/L (35-105) 11/26/21 15:06 Creatine Kinase 29 U/L (26-192) 11/26/21 15:06 Troponin T Baseline 21 ng/L (0-10) H 11/26/21 15:06 Troponin T 120 Minute 19.13 ng/L (0-10) H 11/26/21 17:26 Delta Troponin T -1.87 ABS# (0-10) L 11/26/21 17:26 Total Protein 7.5 g/dL (6.6-8.7) 11/26/21 15:06 Albumin 4.1 g/dL (3.5-5.2) 11/26/21 15:06 Globulin 3.4 g/dL (1.3-4.6) 11/26/21 15:06 Random Cortisol 36.59 ug/dL (2.47-19.5) H 11/26/21 17:26 Digoxin 0.7 ng/mL (0.6-1.2) 11/26/21 17:26 Discharge Plan Discharge Patient Disposition: Placed in Observation Admit Provider: Milton Blandon Clinical Impression: Hypertensive urgency, Acute hypokalemia, Acute hyperglycemia Coding Level of Care Code ED Access Control Specialist for Chg Fwd Documented by User: Matty Rodríguez DO 11/27/21 05:05 HPI - Chest Pain General: Chief Complaint: Chest Pain Stated Complaint: CHEST PAIN Time Seen by Provider: 11/26/21 14:24 PFSH ED PFSH: Medical History Anxiety and depression CHF exacerbation Chronic knee pain Chronic low back pain COPD (chronic obstructive pulmonary disease) Oxygen dependent, 2 L at baseline Coronary artery disease COVID-14 August 2020 Duodenal ulcer due to bacteria Fibromyalgia High risk medication use Hyperlipidemia Hypertension Hypothyroidism Immunization counseling Inflammatory arthritis Intermittent atrial fibrillation Because the patient history of frequent fall she was thought to be high risk for bleeding complications. So she is taking only the aspirin at this time. SHE HAS EASY BRUISING WELL Left renal mass Liver cirrhosis Low back pain of over 3 months duration Lung nodule Narrow complex tachycardia Osteoarthritis of knees, bilateral Poorly controlled diabetes mellitus Psychiatric care Recurrent UTI Seronegative rheumatoid arthritis of both hands Unstable angina Urgency incontinence UTI (urinary tract infection) Surgical History History of cardiac cath History of cholecystectomy History of hysterectomy History of knee replacement History of thyroid surgery Family History Other CAD (coronary artery disease) Cancer Denies family history of Anesthesia complication Bleeding disorder Social History Smoking and tobacco status: former smoker Quit status (tobacco): has quit using tobacco Year quit tobacco: 2005 Second hand smoke exposure: No Alcohol intake: never Adopted: No Caregiver/support person: No Lives independently: No Household members: spouse Marital status: Current occupational status: retired History of recent travel: No Current gender identity: Female Course Vital Signs: Vital signs: Vital Signs Temperature 98.0 F 11/28/21 07:16 Pulse Rate 61 11/28/21 11:22 Respiratory Rate 24 H 11/28/21 11:22 Blood Pressure 114/43 11/28/21 11:22 Pulse Oximetry 90 11/28/21 11:22 MDM - Chest Pain Medical Decision Making 71-year-old female checked out to me by Dr. Treviño at shift change. This lady had come in with chest discomfort. She also had some mild mental status changes. Laboratory revealed a sodium of 132 and a potassium of 3.1. Creatinine is 1.2. Sugar was up to 445. She was given IV insulin, potassium. Her sugar improved somewhat after insulin. The patient was quite hypertensive, with highest pressure being in the 230s systolic. Multiple medications were given, with only transient improvement in the pressure. Her troponin did not elevate significantly at 2 hours, but there was concern for hypertensive urgency causing chest discomfort. She will be observed, placed back on her medication. Blood pressures will be trended. Troponin will be trended as well. Of note, the patient has had chills, and has some belly tenderness as well. CT of the belly is ordered, along with viral swabs. Lab Data : 11/28/21 04:20 11/28/21 04:20 Radiology Impressions Chest X-Ray 11/26/21 14:26 IMPRESSION: No acute findings. Head CT 11/26/21 18:02 IMPRESSION: 1. No acute intracranial abnormality. 2. Moderate diffuse cerebral atrophy and sequela of chronic small vessel ischemic disease. Abdomen/Pelvis CT 11/26/21 21:05 IMPRESSION: 1. Nephrolithiasis not significantly changed 2. Possible cirrhosis not significantly changed. 3. Left breast lesion not significantly changed. 4. No acute findings. No significant change compared with 11/04/2021. Head/Neck CTA 11/27/21 10:32 IMPRESSION: No large vessel stenosis or occlusion. IMPRESSION: There is atherosclerotic plaque at the origin of the bilateral internal carotid arteries without significant stenosis. REFERENCES: NASCET CRITERIA. The degree of internal carotid artery stenosis is based on NASCET criteria. Normal is no stenosis. Mild is less than 50% stenosis. Moderate is 50-69% stenosis. Severe is 70% to 99% stenosis. Total occlusion is no detectable patent lumen. Laboratory Results WBC 8.8 10^3/uL (4.0-10.0) 11/26/21 14:33 RBC 3.61 10^6/uL (4.1-5.3) L 11/26/21 14:33 Hgb 12.4 g/dL (11.5-15.3) 11/26/21 14:33 Hct 35.6 % (37.0-47.0) L 11/26/21 14:33 MCV 98.6 fl (81-99) 11/26/21 14:33 MCH 34.3 pg (28.0-34.0) H 11/26/21 14:33 MCHC 34.8 g/dL (30.0-36.0) 11/26/21 14:33 RDW 13.9 % (12.1-15.1) 11/26/21 14:33 Plt Count 237 10^3/cmm (130-400) 11/26/21 14:33 MPV 9.4 fL (7.4-10.4) 11/26/21 14:33 Neut % (Auto) 86.8 % 11/26/21 14:33 Lymph % (Auto) 7.3 % 11/26/21 14:33 [place] % (Auto) 5.0 % 11/26/21 14:33 Eos % (Auto) 0.2 % 11/26/21 14:33 Baso % (Auto) 0.2 % 11/26/21 14:33 Neut # (Auto) 7.65 10^3/uL (1.8-7.7) 11/26/21 14:33 Lymph # (Auto) 0.6 10^3/uL (0.8-4.8) L 11/26/21 14:33 [place] # (Auto) 0.4 10^3/uL (0.2-0.9) 11/26/21 14:33 Eos # (Auto) 0.0 10^3/uL (0.0-0.8) 11/26/21 14:33 Baso # (Auto) 0.0 10^3/uL (0.0-0.1) 11/26/21 14:33 Nucleated RBC % (auto) 0.2 % 11/26/21 14:33 Nucleated RBCs # 0.0 /100WBC 11/26/21 14:33 Sodium 132 mmol/L (136-145) L 11/26/21 15:06 Potassium 3.1 mmol/L (3.5-5.1) L 11/26/21 15:06 Chloride 85 mmol/L (98-107) L 11/26/21 15:06 Carbon Dioxide 31 mmol/L (22-29) H 11/26/21 15:06 Anion Gap 19.1 (5-19) H 11/26/21 15:06 BUN 24 mg/dL (8-23) H 11/26/21 15:06 Creatinine 1.2 mg/dL (0.5-0.9) H 11/26/21 15:06 GFR Calculation Not Reportable 11/26/21 15:06 Glucose 445 mg/dL (65-115) H 11/26/21 15:06 POC Glucose 324 mg/dL (70-110) H 11/26/21 20:20 Calculated Osmolality 297 mOsm/kg (285-295) H 11/26/21 15:06 Calcium 10.3 mg/dL (8.5-10.5) 11/26/21 15:06 Total Bilirubin 0.7 mg/dL (0.15-1.2) 11/26/21 15:06 AST 31 U/L (0-32) 11/26/21 15:06 ALT 28 U/L (0-33) 11/26/21 15:06 Alkaline Phosphatase 99 IU/L (35-105) 11/26/21 15:06 Creatine Kinase 29 U/L (26-192) 11/26/21 15:06 Troponin T Baseline 21 ng/L (0-10) H 11/26/21 15:06 Troponin T 120 Minute 19.13 ng/L (0-10) H 11/26/21 17:26 Delta Troponin T -1.87 ABS# (0-10) L 11/26/21 17:26 Total Protein 7.5 g/dL (6.6-8.7) 11/26/21 15:06 Albumin 4.1 g/dL (3.5-5.2) 11/26/21 15:06 Globulin 3.4 g/dL (1.3-4.6) 11/26/21 15:06 Random Cortisol 36.59 ug/dL (2.47-19.5) H 11/26/21 17:26 Digoxin 0.7 ng/mL (0.6-1.2) 11/26/21 17:26 Discharge Plan Discharge Patient Disposition: Placed in Observation Admit Provider: Milton Blandon Clinical Impression: Hypertensive urgency, Acute hypokalemia, Acute hyperglycemia Coding Level of Care Code ED Access Control Specialist for Dougie Samson
[2021-11-26 17:58] LABS: Digoxin 0.7 ng/mL (0.6-1.2)
[2021-11-26 17:59] LABS: Troponin 5 2HR 19.13 ng/L (0-10)
[2021-11-26 18:00] LABS: Troponin 5 2HR Delta -1.87 ABS# (0-10)
--- NOTE | 2021-11-26 18:02 | CTR_ITS ---
PROCEDURE INFORMATION: Exam: CT Head Without Contrast Exam date and time: 11/26/2021 9:56 PM Age: 71 years old Clinical indication: Altered mental status/memory loss; Confusion or disorientation; Patient HX: Ams/confusion TECHNIQUE: Imaging protocol: Computed tomography of the head without contrast. Radiation optimization: All CT scans at this facility use at least one of these dose optimization techniques: automated exposure control; mA and/or kV adjustment per patient size (includes targeted exams where dose is matched to clinical indication); or iterative reconstruction. COMPARISON: CT head wo con* [id number] 11/17/2021 5:54 PM RADIATION DOSE METRICS: Total DLP (mGy-cm): 1018.95 FINDINGS: Brain: No hemorrhage. Moderate diffuse cerebral atrophy and sequela of chronic small vessel ischemic disease. No mass effect. Cerebral ventricles: No ventriculomegaly. Paranasal sinuses: Visualized sinuses are unremarkable. No fluid levels. Mastoid air cells: Visualized mastoid air cells are well aerated. Bones/joints: Unremarkable. No acute fracture. Soft tissues: Unremarkable. CT/CT head wo con* [id number] IMPRESSION: 1. No acute intracranial abnormality. 2. Moderate diffuse cerebral atrophy and sequela of chronic small vessel ischemic disease.
[2021-11-26] MEDS: insulin regular-human 100 units/1 mL 10 UNIT IVP (18:10)
[2021-11-26] MEDS: dilTIAZem 60 mg Tablet 120 MG PO (18:27)
[2021-11-26] MEDS: lisinopril 20 mg Tablet 40 MG PO (18:28)
[2021-11-26] MEDS: hyDRALAzine 20 mg/mL INJ 1 mL IVP (18:30)
[2021-11-26] MEDS: metoprolol tartrate 1 mg/1 mL SDV 5 mL 5 MG IVP (18:31)
[2021-11-26 20:25] LABS: Glucose Point of Care 324 mg/dL (70-110)
--- NOTE | 2021-11-26 20:26 | ECG_ITS ---
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 Measurements Intervals [place] Rate: 87 P: -4 AR: 193 QRS: -71 QRSD: 153 T: 12 QT: 448 QTc: 542 Interpretive Statements SINUS RHYTHM RIGHT BUNDLE BRANCH BLOCK [120+ ms QRS DURATION, UPRIGHT V1, 40+ ms S IN I/aVL/V4/V5/V6] LEFT ANTERIOR FASCICULAR BLOCK [QRS AXIS <= -45, QR IN I, RS IN II] LEFT VENTRICULAR HYPERTROPHY AND ST-T CHANGE [VOLTAGE CRITERIA PLUS ST/T ABNORMALITY] POSSIBLE SEPTAL MYOCARDIAL INFARCTION , OF INDETERMINATE AGE [30 ms Q WAVE IN V1/V2] Compared to ECG 11/17/2021 16:45:37 Atrial fibrillation no longer present ST (T wave) deviation still present Myocardial infarct finding still present Electronically Signed On 11-27-2021 9:39:08 CDT by Min Tipton M.D. [id number]
--- NOTE | 2021-11-26 21:05 | CTR_ITS ---
PROCEDURE INFORMATION: Exam: CT Abdomen And Pelvis Without Contrast Exam date and time: 11/26/2021 9:59 PM Age: 71 years old Clinical indication: Abdominal pain; Generalized; Prior surgery; Surgery type: Gb, hyst; Patient HX: Abd pain w yoli; Additional info: Abdo pain, vomiting, yoli, TECHNIQUE: Imaging protocol: Computed tomography of the abdomen and pelvis without contrast. Radiation optimization: All CT scans at this facility use at least one of these dose optimization techniques: automated exposure control; mA and/or kV adjustment per patient size (includes targeted exams where dose is matched to clinical indication); or iterative reconstruction. COMPARISON: CT abdomen pelvis w con* [id number] 11/04/2021 4:19 PM RADIATION DOSE METRICS: Total DLP (mGy-cm): 1714.2 FINDINGS: Limitations: Study somewhat limited due to streak artifact created by the patient being scanned with the arms at the sides. The absence of intravenous contrast lessens the sensitivity of this study for solid organ abnormalities. Liver: There is no focal abnormality within the liver. Liver has somewhat nodular contour suggesting possible cirrhosis. Gallbladder and bile ducts: There has been a cholecystectomy. Pancreas: The pancreas is normal. Spleen: The spleen demonstrates punctate calcifications, consistent with remote granulomatous organism exposure. Adrenal glands: The adrenal glands are normal. Kidneys and ureters: There are multiple bilateral renal collecting system calcifications. There is several small benign cortical cysts of the left kidney not changed from 11/04/2021. There is no evidence of hydronephrosis. There is no stone along the course of either ureter. Stomach and bowel: There is no evidence of colitis/diverticulitis. There is no evidence of intestinal obstruction. Appendix: Not identified Intraperitoneal space: Unremarkable. No free air. No significant fluid collection. Vasculature: The aorta demonstrates moderate atherosclerotic calcification. The aorta demonstrates moderate atherosclerotic calcification. There is no evidence of an abdominal aortic aneurysm. Lymph nodes: There is no evidence of lymphadenopathy. There is some fatty replaced periaortic lymph nodes.There is no evidence of lymphadenopathy. Urinary bladder: Unremarkable as visualized. Reproductive: There has been a hysterectomy. Bones/joints: The lumbar spine demonstrates marked degenerative changes at multiple levels. No fracture is identified. Soft tissues: Smooth oval lesion left breast 12 o'clock position anterior depth again identified not significantly changed. CT/CT abdomen pelvis wo con [id number] IMPRESSION: 1. Nephrolithiasis not significantly changed 2. Possible cirrhosis not significantly changed. 3. Left breast lesion not significantly changed. 4. No acute findings. No significant change compared with 11/04/2021.
--- NOTE | 2021-11-26 21:14 | PM.HP ---
Providers/Chief Complaint Primary Care Provider: Davion Griggs MD Chief Complaint: CHEST PAIN History of Present Illness 71-year-old lady with history of COPD, CHF, chronic oxygen 2 L nasal cannula at baseline, CAD, HTN, HLD, hypothyroidism, inflammatory Tritus, A. fib not on anticoagulation due to fall risk, liver cirrhosis, recurrent UTI, other chronic medical problems was brought in for evaluation by her due to since this morning her feeling unwell, having some mild confusion, not providing reliable history, review of systems. He states that yesterday she was having vomiting. But apart from that had otherwise been eating okay. Today she did not eat, did not take her medications. She endorses chills. Her abdomen has been sore. She did have several bowel movements today per . She is having mild headache. She is not coughing. She endorses burning with urination. In ER on presentation she is found hypertensive, blood pressure as high as 208/83. She is hyperglycemic, glucose 445. With mild CYNTHIA, creatinine up to 1.2, previously baseline 0.9-1.1. Intermittent sinus tachycardia, 102. Respiratory rate 20-22. She is saturating well on small amount of nasal cannula oxygen. Chest x-ray unremarkable. CT head was attempted, but with chills she could not stay still enough for it. denies any recent changes in medications. endorses she has a BiPAP for COPD at home but has not been using it. He suspects she has sleep apnea as well. She normally walks with a walker. Review of Systems General: Reports: Other (Review of systems limited due to mental status) Const: Reports: chills and malaise; Denies: fever(s) Eyes: Denies: eye redness ENMT: Denies: throat pain Card: Denies: chest pain or edema Resp: Denies: dyspnea or productive cough GI: Reports: abdominal pain, nausea, vomiting and constipation; Denies: diarrhea, hematochezia or melena : Reports: dysuria; Denies: flank pain, urinary frequency or hematuria Musc: Denies: back pain Skin/Breast: Denies: rash or new lesions Neuro: Reports: headache(s) and confusion; Denies: numbness in extremities, weakness in extremities, dizziness or seizure-like activity Endo: Denies: polyuria [place]/Lymph: Denies: easy bleeding All/Imm: Denies: urticaria Medications/Allergies Home Medications Medication Instructions Recorded Confirmed Last Taken Type acetaminophen 650 mg 650 mg PO Q4H PRN 10/12/19 11/04/21 11/04/21 History tablet,extended release (Arthritis Pain Reliever) cholecalciferol (vitamin D3) 25 2,000 unit PO DAILY@08 10/12/19 11/04/21 11/04/21 History mcg (1,000 unit) tablet (Vitamin D3) albuterol sulfate 2.5 mg INHALATION TID PRN 10/08/20 11/04/21 Unknown History insulin human U-100 NPH-regulr See Rx Instructions .ROUTE .COMPLEX 10/08/20 11/04/21 11/04/21 History 70-30 mix 100 unit/mL subcutaneous susp (Novolin 70/30 U-100 Insulin) nitroglycerin 0.4 mg sublingual 0.4 mg SUBLINGUAL Q5M PRN #30 tab 02/08/21 11/04/21 Unknown Rx tablet (Nitrostat) albuterol sulfate 90 mcg/actuation 2 puff INHALATION Q6H PRN 03/16/21 11/04/21 Unknown History aerosol inhaler chlorpheniramine maleate 4 mg See Rx Instructions .ROUTE .COMPLEX 03/16/21 11/04/21 05/06/21 History tablet (ChlorTabs) cyanocobalamin (vitamin B-12) 500 500 mcg PO DAILY 03/16/21 11/04/21 11/04/21 History mcg tablet (Vitamin B-12) diphenhydramine HCl 25 mg capsule See Rx Instructions .ROUTE .COMPLEX 03/16/21 11/04/21 05/05/21 History (Benadryl) docusate sodium 250 mg capsule 250 mg PO BEDTIME 03/16/21 11/04/21 11/03/21 History (Stool Softener) prednisolone acetate 1 % eye 1 drp OPHTHALMIC (EYE) PRN 03/16/21 11/04/21 05/06/21 History drops,suspension folic acid 1 mg tablet 1 mg PO DAILY@08 #90 tab 04/25/21 11/04/21 11/04/21 Rx ferrous gluconate 324 mg (37.5 mg See Rx Instructions .ROUTE .COMPLEX 05/06/21 11/04/21 11/04/21 History iron) tablet magnesium L-lactate 84 mg 84 mg PO BID 05/06/21 11/04/21 11/04/21 History tablet,extended release hydrocodone 7.5 mg-acetaminophen 1 tab PO TID PRN 30 Days #90 tab 06/21/21 11/04/21 09/13/21 10:00 Rx 325 mg tablet 1/2 tab tizanidine 4 mg tablet 4 mg PO TID PRN 30 Days #90 tab 06/21/21 11/04/21 09/13/21 10:00 Rx calcium carbonate 600 mg calcium 600 mg PO DAILY 06/27/21 11/04/21 11/04/21 History (1,500 mg) tablet (Calcium) levothyroxine 150 mcg tablet 150 mcg PO QAM 06/27/21 11/04/21 11/04/21 History (Euthyrox) methylsulfonylmethane 1,000 mg 1,000 mg PO BID 06/27/21 11/04/21 11/04/21 History tablet (MSM) metoprolol tartrate 50 mg tablet 100 mg PO BID@0900,2100 #60 tab 07/12/21 11/04/21 11/04/21 Rx pyridostigmine bromide 60 mg tablet 30 mg PO BID #60 tab 07/12/21 11/04/21 11/04/21 Rx adalimumab 40 mg/0.8 mL 40 mg (0.8 mL) SUBCUT Q14D #2 ea 08/10/21 11/04/21 09/10/21 Rx subcutaneous pen kit (Humira Pen) methotrexate sodium 2.5 mg tablet 7.5 mg PO Q7D #15 tab 08/10/21 11/04/21 10/29/21 Rx diltiazem HCl 120 mg 120 mg PO QAM 09/13/21 11/04/21 11/04/21 History capsule,extended release 24 hr ferrous sulfate 325 mg (65 mg See Rx Instructions .ROUTE .COMPLEX 09/13/21 11/04/21 11/04/21 History iron) tablet (FeroSul) furosemide 20 mg tablet 10 mg PO EVERY OTHER DAY 09/13/21 11/04/21 09/12/21 History insulin lispro 100 unit/mL See Rx Instructions .ROUTE .COMPLEX 09/13/21 11/04/21 11/04/21 History subcutaneous pen pantoprazole 40 mg tablet,delayed 40 mg PO BID 09/13/21 11/04/21 11/04/21 History release potassium chloride 20 mEq 20 meq PO BID 09/13/21 11/04/21 11/04/21 History tablet,extended release prednisone 2.5 mg tablet 2.5 mg PO QAM 09/13/21 11/04/21 11/04/21 History sulfasalazine 500 mg tablet 500 mg PO BID@08,17 09/13/21 11/04/21 11/04/21 History tramadol 50 mg tablet 50 mg PO TID 09/13/21 11/04/21 11/04/21 History duloxetine 60 mg capsule,delayed 60 mg PO DAILY@08 #90 cap 10/27/21 11/04/21 11/04/21 Rx release atorvastatin 80 mg tablet 80 mg PO BEDTIME 11/04/21 11/04/21 11/03/21 History lisinopril 40 mg tablet 40 mg PO QPM 11/04/21 11/04/21 11/03/21 History digoxin 125 mcg (0.125 mg) tablet 125 mcg PO DIRECTED #75 tab 11/09/21 Unknown Rx Allergies Allergy/AdvReac Type Severity Reaction Status Date / Time adhesive tape Allergy rash Verified 11/04/21 15:11 cinnamon Allergy sinus Verified 11/04/21 15:11 codeine Allergy unknown Verified 11/04/21 15:11 cedar Allergy sinus Uncoded 11/04/21 15:11 pine Allergy sinus Uncoded 11/04/21 15:11 pork food Allergy ADR-Nausea Uncoded 11/04/21 15:11 PFSH Acute PFSH: Medical History Anxiety and depression CHF exacerbation Chronic knee pain Chronic low back pain COPD (chronic obstructive pulmonary disease) Oxygen dependent, 2 L at baseline Coronary artery disease COVID-14 August 2020 Duodenal ulcer due to bacteria Fibromyalgia High risk medication use Hyperlipidemia Hypertension Hypothyroidism Immunization counseling Inflammatory arthritis Intermittent atrial fibrillation Because the patient history of frequent fall she was thought to be high risk for bleeding complications. So she is taking only the aspirin at this time. SHE HAS EASY BRUISING WELL Left renal mass Liver cirrhosis Low back pain of over 3 months duration Lung nodule Narrow complex tachycardia Osteoarthritis of knees, bilateral Poorly controlled diabetes mellitus Psychiatric care Recurrent UTI Seronegative rheumatoid arthritis of both hands Unstable angina Urgency incontinence UTI (urinary tract infection) Surgical History History of cardiac cath History of cholecystectomy History of hysterectomy History of knee replacement History of thyroid surgery Family History Other CAD (coronary artery disease) Cancer Denies family history of Anesthesia complication Bleeding disorder Social History Smoking and tobacco status: former smoker Quit status (tobacco): has quit using tobacco Year quit tobacco: 2005 Second hand smoke exposure: No Alcohol intake: never Adopted: No Caregiver/support person: No Lives independently: No Household members: spouse Marital status: Current occupational status: retired History of recent travel: No Current gender identity: Female Female Reproductive History: Date of last menstrual period: 11/18/20 Vitals/I&O/Wt Last Vital Signs Pulse 102 H 11/26/21 20:48 Resp 20 H 11/26/21 20:48 BP 195/80 11/26/21 20:48 Pulse Ox 98 11/26/21 20:48 Weight last 48 hrs Weight 95.254 kg Physical Exam Narrative: at bedside Const: GENERAL APPEARANCE: cooperative; not comfortable NUTRITIONAL APPEARANCE: obese ORIENTATION/CONSCIOUSNESS: Yes awake and Yes confused OTHER: Chills HENMT: COMMON NORMALS: normocephalic, EAC's normal, Normal external nose present and moist oral mucous membranes HEAD & SCALP: normocephalic NOSE: Normal external nose present EXTERNAL AUDITORY CANAL: EAC's normal Neck/C-Spine: COMMON NORMALS: no meningeal signs Chest: CHEST: Yes Symmetrical chest wall rise Resp: COMMON NORMALS: clear to auscultation bilaterally AUSCULTATION: clear to auscultation bilaterally Cardio: COMMON NORMALS: regular rate, regular rhythm and No murmurs present (Cardio) RATE: regular rate RHYTHM: regular rhythm GI: COMMON NORMALS: Normal to inspection, nondistended, normoactive bowel sounds present, Soft to palpation and non-tender PALPATION: Yes Soft to palpation and Yes Tenderness to palpation present (GI) Details: other (mild general, worse RLQ) Extremity: COMMON NORMALS: no pedal edema Neuro: COMMON NORMALS: moves all extremities SENSORIUM/ORIENTATION: Yes alert MENINGEAL SIGNS: Yes no meningeal signs Psych: COMMON NORMALS: negative for mental status grossly normal Skin: COMMON NORMALS: no wounds RASHES: no rashes Data : 11/26/21 14:33 11/26/21 15:06 A&P Assessment and plan (1) Nausea and vomiting: Yesterday she had vomiting. Today she did not eat, did not take her medications. Abdomen is sore, on palpation worse in the right lower quadrant. Will attempt CT abdomen pelvis. Check lactic acid. Possible gastritis. PPI. Zofran. She is having chills, mild headache as well, will also check COVID-19, influenza. Has history of UTIs, check urine. Follow-up CT abdomen pelvis for any obstructive uropathy. Place Manz[place]res for accurate UMANG. Bowel rest for now, sips and chips. On recurrent steroids, which were adrenal insufficiency. Check serum cortisol. Status: Acute (2) Chills: Additionally try COVID-19, influenza. Check UA. She is immune compromised on methotrexate. Previously also with recurrent/prolonged steroids. Without leukocytosis here. I do not see a temperature measured, will requesting. Monitor for symptoms of acute infection other than possible viral syndrome as above. Status: Acute (3) Acute encephalopathy: Acute metabolic encephalopathy secondary to possibly acute medical condition with gastritis, vomiting, additional assessment for possible viral infection, possible UTI. Reported history of cirrhosis, check ammonia. denies any recent medication changes. Mild CYNTHIA, monitor renal function. Check TSH CT of the head was attempted, but with chills could not obtain images. Consider repeat attempt in case still needed. On recurrent steroids, which were adrenal insufficiency. Check serum cortisol. Status: Acute (4) CYNTHIA (acute kidney injury): Vomiting yesterday, did not eat today. Possibly prerenal. She also takes Lasix every other day. Follow-up stable pelvis for obstructive uropathy. Place Manz[place] catheter for accurate I&O. Gentle IV fluid challenge, reassess renal function. Watch for fluid overload with history of CHF. Status: Acute (5) Chest pain: Mild troponin elevation. Not coughing, not short of breath. Complete troponin EKG series. Blood pressure was very elevated, possibly contributing. Had a stress test in February 2021 which was normal. This may be chest discomfort after vomiting, but monitor for change in symptoms. Status: Acute (6) Hypertension: Received hydralazine, metoprolol, diltiazem, lisinopril. Continue optimization of blood pressure control. Status: Acute Plan Mild hypokalemia: Replace. Check magnesium. Intertrigo: under breast, pannus. Nystatin cream reports possible MASSIMO: If has not had a sleep study consider referral after discharge COPD, chronic oxygen 2 L nasal cannula at baseline, CHF, chronic, not in exacerbation CAD, HTN, HLD, hypothyroidism, check TSH inflammatory arthritis, A. fib not on anticoagulation due to fall risk, liver cirrhosis, check for ascites on CT abdomen pelvis. Check ammonia. recurrent UTI Please review home medications once reconciled, reorder as appropriate and according to renal function. Attestations Medical Necessity Statement*: Place in observation for further assess management of nausea, vomiting, malaise, chills, acute metabolic encephalopathy. Coding Level of Care Code Acute Timekeeping Supervisor for [facility] Fwd Exam Comprehensive Diagnoses Nausea and vomiting R11.2 Chills R68.83 Acute encephalopathy G93.40 CYNTHIA (acute kidney injury) N17.9 Chest pain R07.9 Hypertension I10
[2021-11-26 21:42] LABS: Influenza A by IFA Negative (Negative); Influenza B by IFA Negative (Negative)
[2021-11-26 21:49] LABS: Add Urine Microscopic? YES; Bilirubin Urine 1+ (Negative); Blood Urine Neg (Negative); Glucose Urine UA 4+ (Normal); Ketones Urine 1+ (Negative); Leukocyte Esterase Urine Negative (Negative); Nitrate Urine Negative (Negative); Protein Urine 3+ (Negative); Urine Appearance Clear (CLEAR); Urine Color Dark Yellow (Yellow); Urobilinogen Urine 1 mg/dL (Negative); pH Urine 5 (5-7)
[2021-11-26 21:55] LABS: Amorphous Sediment Urine 1+ /hpf; Bacteria Urine 1+ /hpf; Mucus Urine 1+ /hpf; RBC Urine 0-4 /hpf (0-2); Squamous Epithelial Cell Urine 0-4 /hpf (0-5); WBC Urine 0-4 /hpf (0-5)
[2021-11-26 21:56] LABS: Add Urine Culture? No; Hyaline Casts Urine 0-4 /lpf
[2021-11-26 22:06] LABS: Troponin 5 6HR 29.63 ng/L (0-10)
[2021-11-26 22:07] LABS: Troponin 5 6HR Delta 8.63 ng/L (0-12)
[2021-11-26 22:20] LABS: Cortisol Random 36.59 ug/dL (2.47-19.5)
[2021-11-26] MEDS: potassium chloride premix 100 ML 25 MEQ IV (22:39)
[2021-11-26] MEDS: pantoprazole 40 mg SDV IVP (22:39)
[2021-11-26] MEDS: lactated ringers 1,000 ML 30 ML IV (22:39)
[2021-11-26] MEDS: enoxaparin 40 mg/0.4 mL Syringe SUBCUT (22:39)
[2021-11-26 22:48] LABS: Magnesium 1.1 mg/dL (1.7-2.3)
[2021-11-26 22:58] LABS: Adenovirus Not Detected (NOT DETECT); Chlamydia Pneumoniae Not Detected (NOT DETECT); Coronavirus 229E,HKU1,NL63,OC4 Not Detected (NOT DETECT); Human Metapneumovirus Not Detected (NOT DETECT); Human Rhinovirus/Enterovirus Not Detected (NOT DETECT); Influenza A Not Detected (NOT DETECT); Influenza A H1 Not Detected (NOT DETECT); Influenza A H1-2009 Not Detected (NOT DETECT); Influenza A H3 Not Detected (NOT DETECT); Influenza B Not Detected (NOT DETECT); Mycoplasma Pneumoniae Not Detected (NOT DETECT); Parainfluenza Virus Type 1 Not Detected (NOT DETECT); Parainfluenza Virus Type 2 Not Detected (NOT DETECT); Parainfluenza Virus Type 3 Not Detected (NOT DETECT); Parainfluenza Virus Type 4 Not Detected (NOT DETECT); Respiratory Syncytial Virus A Not Detected (NOT DETECT); Respiratory Syncytial Virus B Not Detected (NOT DETECT); SARS-COV-2 Not Detected (NOT DETECT)
[2021-11-26 23:25] LABS: Lactate (Lactic Acid level) 2.4 mmol/L (0.5-2.2)
[2021-11-26 23:26] LABS: Ammonia 28 umol/L (11-51)
[2021-11-27] VITALS (28 sets, daily range): BP systolic 120–216; BP diastolic 71–128; PULSE 77–136; RESP 14–29; TEMP 36.3–37.4; O2SAT 91–99
--- NOTE | 2021-11-27 05:37 | PC.NURSE ---
Patient arrived to floor via stretcher with at bedside. left before getting patient situated to be able to answer questions. Patient Alert and oriented to self only with intermittent AAOx0. No c/o pain, can not answer admission questions. BP remains hypertensive, romero placed per orders, repositioned frequently, no skin concerns at this time. No safety events or concerns. Room clutter free and call light in reach with frequent rounds. Will report to oncoming nurse at shift change.
[2021-11-27 06:28] LABS: Glucose Point of Care 222 mg/dL (70-110)
[2021-11-27 06:39] LABS: Basophils % 0.3 %; Hematocrit 31.9 % (37.0-47.0); Hemoglobin 10.8 g/dL (11.5-15.3); Lymphocytes # 1.2 10^3/uL (0.8-4.8); Lymphocytes % 11.2 %; Mean Corpuscular HGB Conc 33.9 g/dL (30.0-36.0); Mean Corpuscular Hemoglobin 35.2 pg (28.0-34.0); Mean Corpuscular Volume 103.9 fl (81-99); Mean Platelet Volume 9.3 fL (7.4-10.4); Monocytes # 1.1 10^3/uL (0.2-0.9); Monocytes % 9.7 %; Neutrophils # 8.46 10^3/uL (1.8-7.7); Neutrophils % 78.3 %; Nucleated Red Blood Cells % 0 %; Platelet Count 189 10^3/cmm (130-400); Red Blood Count 3.07 10^6/uL (4.1-5.3); Red Cell Distribution Width 14.8 % (12.1-15.1); White Blood Count 10.8 10^3/uL (4.0-10.0)
[2021-11-27] MEDS: magnesium sulfate premix 4 GM/100 ML PREMIX IV (06:39)
[2021-11-27 07:18] LABS: Anion Gap 18.3 (5-19); Blood Urea Nitrogen 30 mg/dL (8-23); Calcium 10.1 mg/dL (8.5-10.5); Carbon Dioxide 32 mmol/L (22-29); Chloride 93 mmol/L (98-107); Glucose 229 mg/dL (65-115); Osmolality Calculated 303 mOsm/kg (285-295); Potassium 3.3 mmol/L (3.5-5.1); Sodium 140 mmol/L (136-145); Thyroid Stimulating Hormone 0.56 uIU/mL (0.27-4.20)
[2021-11-27 08:21] LABS: Ammonia 32 umol/L (11-51)
[2021-11-27] MEDS: insulin lispro 100 unit/1 mL SUBCUT ×4 (08:40→20:45)
[2021-11-27] MEDS: nystatin cream 30 gm 1 APPLIC TOPICAL ×2 (08:40→18:12)
--- NOTE | 2021-11-27 09:12 | PC.OT ---
occupational therapy evaluation placed on hold. Patient BP 216/84 with a pulse rate of 106. O2 96 on 3L. Nursing notified of blood pressure and is set to address.
[2021-11-27] MEDS: insulin glargine 100 units/1 mL 10 UNIT SUBCUT (10:18)
[2021-11-27 10:22] LABS: Glucose Point of Care 250 mg/dL (70-110)
--- NOTE | 2021-11-27 10:32 | CTR_ITS ---
PROCEDURE INFORMATION: Exam: CT Angiography Head With Contrast, Arteriography Exam date and time: 11/27/2021 11:15 AM Age: 71 years old Clinical indication: Other: Neurological change TECHNIQUE: Imaging protocol: Computed tomography angiography of the head with contrast. Exam focused on the arteries. 3D rendering (Not supervised by radiologist): MIP and/or 3D reconstructed images were created by the technologist. Radiation optimization: All CT scans at this facility use at least one of these dose optimization techniques: automated exposure control; mA and/or kV adjustment per patient size (includes targeted exams where dose is matched to clinical indication); or iterative reconstruction. Contrast material: VISI 320; Contrast volume: 95 ml; Contrast route: INTRAVENOUS (IV); COMPARISON: 1. CT angio headneck* [id number] 07/02/2021 9:[address] cervical spin wo con* [id number] 08/02/2021 1:53 AM RADIATION DOSE METRICS: Total DLP (mGy-cm): 2000.53 FINDINGS: ANTERIOR CIRCULATION: Right internal carotid artery: There is atherosclerotic plaque in the carotid siphons with luminal irregularity however no significant focal stenosis. No aneurysm. Right middle cerebral artery: Unremarkable. No occlusion or significant stenosis. No aneurysm. Right anterior cerebral artery: Unremarkable. No occlusion or significant stenosis. No aneurysm. Left internal carotid artery: There is atherosclerotic plaque in the carotid siphons with luminal irregularity however no significant focal stenosis. No aneurysm. Left middle cerebral artery: Luminal irregularity consistent with atherosclerotic disease. No occlusion or significant stenosis. No aneurysm. Left anterior cerebral artery: There is luminal irregularity consistent with atherosclerotic disease. No occlusion or significant stenosis. No aneurysm. POSTERIOR CIRCULATION: Right vertebral artery: Minimal atherosclerotic plaque with mild luminal irregularity. No occlusion or significant stenosis. No aneurysm. Left vertebral artery: Mild atherosclerotic plaque with luminal irregularity. No occlusion or significant stenosis. No aneurysm. Basilar artery: Unremarkable. No occlusion or significant stenosis. No aneurysm. Right posterior cerebral artery: Unremarkable. No occlusion or significant stenosis. No aneurysm. Left posterior cerebral artery: Unremarkable. No occlusion or significant stenosis. No aneurysm. Brain: No definite mass, mass effect, or midline shift. Cerebral ventricles: No ventriculomegaly. Bones/joints: There are degenerative changes in the visualized spine. Soft tissues: Unremarkable. PROCEDURE INFORMATION: Exam: CT Angiography Neck With Contrast Exam date and time: 11/27/2021 11:15 AM Age: 71 years old Clinical indication: Other: Neurological change TECHNIQUE: Imaging protocol: Computed tomography angiography of the neck with contrast. 3D rendering (Not supervised by radiologist): MIP and/or 3D reconstructed images were created by the technologist. Radiation optimization: All CT scans at this facility use at least one of these dose optimization techniques: automated exposure control; mA and/or kV adjustment per patient size (includes targeted exams where dose is matched to clinical indication); or iterative reconstruction. Contrast material: VISI 320; Contrast volume: 95 ml; Contrast route: INTRAVENOUS (IV); COMPARISON: 1. CT angio headneck* [id number] 07/02/2021 9:[address] cervical spin wo con* [id number] 08/02/2021 1:53 AM RADIATION DOSE METRICS: Total DLP (mGy-cm): 1999.53 FINDINGS: Right common carotid artery: No stenosis. No dissection or occlusion. Right internal carotid artery: There is atherosclerotic plaque at the origin without significant stenosis. No stenosis of the extracranial segment. No dissection or occlusion. Right external carotid artery: No occlusion or stenosis of the origin. Left common carotid artery: No stenosis. No dissection or occlusion. Left internal carotid artery: There is atherosclerotic plaque at the origin without significant stenosis. No stenosis of the extracranial segment. No dissection or occlusion. Left external carotid artery: No occlusion or stenosis of the origin. Right vertebral artery: No stenosis. No dissection or occlusion. Left vertebral artery: No stenosis. No dissection or occlusion. Thyroid: Diminutive thyroid gland with calcifications, stable when compared to the prior study. Soft tissues: Normal. No significant soft tissue swelling. Bones/joints: No acute fracture. CT/CT angio headneck* [id number] IMPRESSION: No large vessel stenosis or occlusion. IMPRESSION: There is atherosclerotic plaque at the origin of the bilateral internal carotid arteries without significant stenosis. REFERENCES: NASCET CRITERIA. The degree of internal carotid artery stenosis is based on NASCET criteria. Normal is no stenosis. Mild is less than 50% stenosis. Moderate is 50-69% stenosis. Severe is 70% to 99% stenosis. Total occlusion is no detectable patent lumen.
[2021-11-27 10:52] LABS: ABG PCO2 51.2 mmHg (35-45); ABG PH Result 7.51 (7.35-7.45); Alveolar-Arterial Oxygen Gradi 7.1 mmHg (5-10); Base Excess ABG 15.3 mmol/L (-2.0-2.0); Blood Gas Allen Test Pos; Blood Gas Operator Identificat GD; Blood Gas Sample Site Radial, left; Blood Gas Sample Type Arterial; Carboxyhemoglobin < 0.0 %THgb (0.4-20.1); HCO3 ABG 40.4 mmol/L (22-26); HGB O2 Sat 95.7 % (95-100); Ionized Calcium Level - ABG 1.2 mmol/L (1.1-1.4); Methemoglobin 0.9 % (0.4-1.5); Oxygen Device NC; Oxygen Saturation ABG 96.4; Potassium Level - ABG 3.2 mmol/L (3.5-5.0); Total Hemoglobin 11.1 g/dL (12-16)
[2021-11-27] MEDS: iodixanol 320 mg/mL 100mL Btl IV (11:15)
--- NOTE | 2021-11-27 12:10 | P.PN_ITS ---
Subjective Subjective: This morning patient was not very communicative, at the bedside was present who endorse that with high blood pressure and high blood sugar she asked this was sometimes but this is something different, when asked about right-sided facial droop he said it is chronic Exact time for onset of symptoms unknown currently the thinks started on late Sunday I requested ABG on stat basis, that showed respiratory alkalosis and hypoxemia Patient is not able to follow commands, not verbally redirectable, she will look at you for a while and then goes back to sleep I do remember her from her last visit in June 2021 1 code stroke was called and she was showing similar symptoms, stroke work-up at that time was unremarkable, this time CT head is unremarkable I have requested another CTA head and neck EKG showing A. fib with RVR heart rate below 110 As per the at home she has not been using her BiPAP, uses 2 L of oxygen all the time She has had multiple admissions secondary to GI bleed, recurrent falls, orthostatic hypotension, confusion She also required 2 units of PRBC in July for upper GI bleed, EGD showed duodenal ulcer Vitals/I&O/Wt Last Vital Signs Temp 98.3 F 11/27/21 11:42 Pulse 95 11/27/21 11:42 Resp 18 11/27/21 11:42 BP 164/75 11/27/21 11:42 Pulse Ox 93 11/27/21 11:42 11/26/21 11/27/21 11/27/21 22:59 06:59 14:59 Intake Total 100 / 100 Output Total 150 / 150 Balance -50 / -50 Weight last 48 hrs Weight 100.607 kg Weight 95.254 kg Physical Exam Narrative: Patient is noncommunicative Verbally not redirectable When I call her name she will look and make eye contact for a while and then goes back to sleep She has mild left-sided facial droop which according to the is chronic Asymmetrical pupils which are chronic Abdomen soft, no signs of peritonitis however mild tenderness present in right lower quadrant on deep palpation Regular S1-S2 Currently on 2 L nasal cannula No active audible stridor or wheezing No signs of edema She does have unkept appearance Urinary Catheter Management: Manzanares: Cath Placed During This Visit: yes Reason for Continuing Indwelling Catheter: Acute Urinary Retention or Obstruction Urinary Catheter Date of Insertion: 11/26/21 Urinary Catheter Time of Insertion: 23:53 Data : 11/27/21 06:30 11/27/21 06:30 A&P Assessment and plan (1) Acute hyperglycemia: Status: Acute (2) Acute hypokalemia: Status: Acute (3) CYNTHIA (acute kidney injury): Status: Acute (4) Acute encephalopathy: Status: Acute (5) Nausea and vomiting: Status: Acute (6) Duodenal ulcer due to bacteria: Status: Acute (7) Atrial fibrillation: Status: Acute (8) Physical deconditioning: Status: Acute (9) Fibromyalgia: Status: Acute (10) Orthostatic hypotension: Status: Acute (11) Chronic obstructive lung disease: Status: Acute (12) Hypothyroidism: Status: Acute Qualifiers: Hypothyroidism type: acquired Qualified Code(s): E03.9 - Hypothyroidism, unspecified (13) Sleep apnea in adult: Status: Chronic Plan Nausea vomiting likely related to diabetic gastroparesis Hyperglycemia, hypertension: No signs of DKA Currently consistent carb diet sliding scale Clinical signs of hepatic encephalopathy Liver cirrhosis with decompensation due to dehydration, ammonia level however is normal, she does show signs of hepatic encephalopathy clinically Related to dehydration Continue IV fluids History of cirrhosis, CT head unremarkable, CTA head and neck unremarkable as well, ABG revealed respiratory alkalosis adequate oxygenation in fact hyperxemia No signs of UTI, bacteria present, glucosuria Proteinuria Acute on chronic kidney disease related to dehydration Continue IV fluids Monitor urine output with Manzanares Hypertension: Patient is on multiple antihypertensive regimen On previous admission she also required Cardene drip Currently blood pressure is improving on current regimen Hypokalemia: Repleted MASSIMO: Patient has not been using her BiPAP at home, uses oxygen at baseline on 2 to 3 L Intertrigo continue nystatin Seronegative arthritis, continue steroids Hypomagnesemia: Magnesium repleted DVT prophylaxis: Lovenox Orthostatic hypotension: Continue pyridostigmine Attestations Medical Necessity Statement*: Continue medical management Time Spent in Patient Care: 30min Coding Level of Care Code Acute Financial Operations Consultant for g Fwd Diagnoses Acute hyperglycemia R73.9 Acute hypokalemia E87.6 CYNTHIA (acute kidney injury) N17.9 Acute encephalopathy G93.40 Nausea and vomiting R11.2 Duodenal ulcer due to bacteria K26.9; B96.89 Atrial fibrillation I48.91 Physical deconditioning R53.81 Fibromyalgia M79.7 Orthostatic hypotension I95.1 Chronic obstructive lung disease J44.9 Hypothyroidism E03.9 Hypothyroidism type: acquired Sleep apnea in adult G47.30
--- NOTE | 2021-11-27 13:03 | ECG_ITS ---
[facility] Test Date: 2021-11-27 Pat Name: Myesha Parker Department: Room: 251 Gender: Female Robotype Operator: : [id number] Requested By: Tim Robert Order Number: [id number] Wilbur MD: Min Tipton M.D. Measurements Intervals [place] Rate: 133 P: CA: QRS: -74 QRSD: 146 T: 20 QT: 354 QTc: 528 Interpretive Statements ATRIAL FIBRILLATION WITH RAPID VENTRICULAR RESPONSE WITH ABERRANT CONDUCTION OR VENTRICULAR PREMATURE COMPLEXES RIGHT BUNDLE BRANCH BLOCK [120+ ms QRS DURATION, UPRIGHT V1, 40+ ms S IN I/aVL/V4/V5/V6] LEFT ANTERIOR FASCICULAR BLOCK [QRS AXIS <= -45, QR IN I, RS IN II] VOLTAGE CRITERIA FOR LVH [MEETS CRITERIA IN ONE OF: R(aVL), S(V1), R(V5), R(V5/V6)+S(V1)] POSSIBLE SEPTAL MYOCARDIAL INFARCTION , OF INDETERMINATE AGE [30 ms Q WAVE IN V1/V2] ST DEPRESSION, CONSIDER SUBENDOCARDIAL INJURY [0.1+ mV ST DEPRESSION] INTERPRETATION BASED ON A DEFAULT AGE OF 40 YEARS Electronically Signed On 11-29-2021 9:21:04 CDT by Min Tipton M.D. [email or web address]
--- NOTE | 2021-11-27 13:19 | PC.NURSE ---
Notified Dr. Robert of pt. tachycardy. Dr. Robert put in orders
--- NOTE | 2021-11-27 13:20 | PC.NURSE ---
charge nurse stated to give Cardizem now and recheck about 3
[2021-11-27] MEDS: dilTIAZem ER (24HR) 120 mg Capsule PO (13:24)
[2021-11-27] MEDS: magnesium oxide 400 mg tablet PO ×2 (13:39→17:50)
[2021-11-27 13:45] LABS: Glucose Point of Care 338 mg/dL (70-110)
[2021-11-27] MEDS: metoprolol tartrate 50 mg Tablet 100 MG PO ×2 (14:58→20:44)
[2021-11-27] MEDS: digoxin 125 mcg Tablet PO (14:58)
--- NOTE | 2021-11-27 16:42 | PC.NURSE ---
Called report to Jimmie in [facility].
[2021-11-27 16:47] LABS: Glucose Point of Care 279 mg/dL (70-110)
[2021-11-27] MEDS: pyridostigmine 60 mg Tablet 30 MG PO (17:50)
[2021-11-27] MEDS: pantoprazole DR 40 mg Tablet PO (17:51)
--- NOTE | 2021-11-27 19:14 | PC.NURSE ---
received into room 107 from [facility] via bed,at 1705.report received.pt responded to vigorous stimulation only.bp elevated.dr raman aware.cardizem drip started at 2 mg/hr for afib w/rvr.hr 100-110.at 1815 when pt's arrived,pt woke up and requested dinner. alert and oriented...then fell back to sleep.
[2021-11-27 19:46] LABS: Glucose Point of Care 237 mg/dL (70-110)
[2021-11-27] MEDS: potassium chloride ER 20 mEq Tablet PO (20:44)
[2021-11-27] MEDS: hyDRALAzine 10 mg Tablet PO (20:45)
[2021-11-27] MEDS: enoxaparin 40 mg/0.4 mL Syringe SUBCUT (21:28)
[2021-11-28] VITALS (38 sets, daily range): BP systolic 108–214; BP diastolic 43–135; PULSE 59–110; RESP 18–29; TEMP 36.3–36.8; O2SAT 90–100
[2021-11-28 01:16] LABS: Glucose Point of Care 227 mg/dL (70-110)
[2021-11-28 04:48] LABS: Basophils % 0.4 %; Eosinophils % 0.2 %; Hematocrit 33.2 % (37.0-47.0); Lymphocytes # 1.4 10^3/uL (0.8-4.8); Lymphocytes % 13.8 %; Mean Corpuscular HGB Conc 33.1 g/dL (30.0-36.0); Mean Corpuscular Hemoglobin 34.5 pg (28.0-34.0); Mean Corpuscular Volume 104.1 fl (81-99); Mean Platelet Volume 9.5 fL (7.4-10.4); Monocytes % 10.4 %; Neutrophils # 7.49 10^3/uL (1.8-7.7); Neutrophils % 74.7 %; Nucleated Red Blood Cells % 0 %; Platelet Count 203 10^3/cmm (130-400); Red Blood Count 3.19 10^6/uL (4.1-5.3); Red Cell Distribution Width 14.4 % (12.1-15.1)
[2021-11-28 05:11] LABS: Blood Urea Nitrogen 23 mg/dL (8-23); Calcium 9.4 mg/dL (8.5-10.5); Carbon Dioxide 35 mmol/L (22-29); Chloride 94 mmol/L (98-107); Glucose 203 mg/dL (65-115); Magnesium 2.2 mg/dL (1.7-2.3); Osmolality Calculated 297 mOsm/kg (285-295); Sodium 139 mmol/L (136-145)
[2021-11-28] MEDS: levothyroxine 150 mcg Tablet PO (06:07)
[2021-11-28] MEDS: predniSONE 5 mg Tablet 2.5 MG PO (06:08)
[2021-11-28 07:39] LABS: Glucose Point of Care 203 mg/dL (70-110)
[2021-11-28] MEDS: insulin lispro 100 unit/1 mL SUBCUT ×4 (08:04→22:24)
[2021-11-28] MEDS: digoxin 125 mcg Tablet 62.5 MCG PO (08:05)
[2021-11-28] MEDS: dilTIAZem ER (24HR) 180 mg Capsule PO (08:06)
[2021-11-28] MEDS: magnesium oxide 400 mg tablet PO ×2 (08:06→17:49)
[2021-11-28] MEDS: metoprolol tartrate 50 mg Tablet 100 MG PO ×2 (08:07→22:27)
[2021-11-28] MEDS: nystatin cream 30 gm 1 APPLIC TOPICAL ×2 (08:07→17:50)
[2021-11-28] MEDS: pantoprazole DR 40 mg Tablet PO ×2 (08:07→17:50)
[2021-11-28] MEDS: pyridostigmine 60 mg Tablet 30 MG PO ×2 (08:07→17:49)
--- NOTE | 2021-11-28 08:23 | PM.PN ---
Subjective Subjective: Patient is awake and alert very pleasant and communicative Patient is stating that she got up around 6 AM went to the bathroom had 1 bowel movement No abdominal pain She is still experiencing palpitations from A. fib, currently on Cardizem drip at 10 Vitals/I&O/Wt Last Vital Signs Temp 98.0 F 11/28/21 07:16 Pulse 93 11/28/21 08:05 Resp 29 H 11/28/21 07:16 BP 144/61 11/28/21 07:16 Pulse Ox 97 11/28/21 07:16 11/27/21 11/28/21 11/28/21 22:59 06:59 14:59 Intake Total 589.333 / 589.333 38.541 / 627.874 38.667 / 38.667 Output Total 1700 / 1700 500 / 2200 Balance -1110.667 / -1110.667 -461.459 / -1572.126 38.667 / 38.667 Weight last 48 hrs Weight 99.11 kg Weight 100.607 kg Weight 95.254 kg Physical Exam Narrative: Patient is very pleasant cooperative today Currently on 2 L nasal cannula Nonfocal neuro exam Awake alert GCS 15 Looks euvolemic Soft abdomen A. fib variable S1-S2 No signs of edema of legs Awake and alert Pleasant, Appropriate mood and affect Urinary Catheter Management: Manzanares: Cath Placed During This Visit: yes Reason for Continuing Indwelling Catheter: Other Urinary Catheter Date of Insertion: 11/26/21 Urinary Catheter Time of Insertion: 23:53 Data : 11/28/21 04:20 11/28/21 04:20 A&P Assessment and plan (1) Hypertensive urgency: Status: Acute (2) Acute hypokalemia: Status: Acute (3) Acute hyperglycemia: Status: Acute (4) CYNTHIA (acute kidney injury): Status: Acute (5) Acute encephalopathy: Status: Acute (6) Nausea and vomiting: Status: Acute (7) Duodenal ulcer due to bacteria: Status: Acute (8) Atrial fibrillation: Status: Acute (9) Physical deconditioning: Status: Acute (10) Orthostatic hypotension: Status: Acute (11) Falls frequently: Status: Acute (12) Chronic obstructive lung disease: Status: Acute Plan Diabetic gastroparesis, no active nausea or vomiting Hyperglycemia, escalated Lantus to 15 units today A. fib RVR Cardizem at 10, continue digoxin metoprolol, increase the dose of Cardizem Hypertensive urgency, continue hydralazine p.o. continue lisinopril, CYNTHIA secondary to dehydration: Resolved Hypokalemia: We will replete potassium Magnesium 2.2 Patient is much more awake and alert, metabolic encephalopathy related to dehydration: Improved No active signs of sepsis No signs of stroke Patient is full code Cardiac consistent carb diet We will follow with PT evaluation, Likely will be discharged home if heart rate is better tomorrow Attestations Medical Necessity Statement*: Likely will be discharged home tomorrow Currently on Cardizem drip at 10 Time Spent in Patient Care: 20mins Coding Level of Care Code Acute Yard Motor Operator for Chg Fwd Diagnoses Hypertensive urgency I16.0 Acute hypokalemia E87.6 Acute hyperglycemia R73.9 CYNTHIA (acute kidney injury) N17.9 Acute encephalopathy G93.40 Nausea and vomiting R11.2 Duodenal ulcer due to bacteria K26.9; B96.89 Atrial fibrillation I48.91 Physical deconditioning R53.81 Orthostatic hypotension I95.1 Falls frequently R29.6 Chronic obstructive lung disease J44.9
--- NOTE | 2021-11-28 09:11 | PC.NURSE ---
Called to bedside by RADHA patient slummed over on BSC patient arrousable to speech alert and oriented x4 patient while speaking to nurse would appear to pass out although would arouse to speech Blood pressure assessed and found to be low 79/60 cardizem gtt stopped patient assisted back to Bed blood pressure 106/[address] raman instructions to hold po blood pressure medications awnd stop cardizem GTT this charge nurse spoke to primary nurse patient had already been given Po meds aside from hydralazine
--- NOTE | 2021-11-28 09:20 | PC.OT ---
OT EVALUATION HELD THIS MORNING DUE TO ORTHOSTATIC BP WITH NURSING. WILL ATTEMPT AGAIN LATER TODAY
[2021-11-28] MEDS: insulin glargine 100 units/1 mL 15 UNIT SUBCUT (09:42)
[2021-11-28 12:04] LABS: Glucose Point of Care 242 mg/dL (70-110)
--- NOTE | 2021-11-28 12:05 | PC.CHAP ---
Pastoral Care Encounter/Spiritual Assessment Type of Contact [] Declined panel monitor visit [] Patient/Family/Request visit [] Outpatient visit [] Follow-up visit [] Physician referral [] Code/Alert [x] Routine visit [] Staff referral [] Actively dying [] Patient sleeping [] Family support [] [] Out of room [] Palliative care [] [] Receiving care in room [] Pre-surgical visit [] Trauma [] Long length of stay [] ICU visit [] Other: Relational/Emotional Strength [] Patient feels connected with others/family/visitors/staff [] Distress [] Loneliness/isolation [] Abandonment Spirituality of Patient [] Person of Joelle [] Attends Pentecostalism of their Joelle [] Believes in Prayer [] Reads Bible or Taoism materials [] There are Spiritual issues to be addressed Die Repair Machinist Interventions [x] Prayer [] Active listening [] Non-anxious presence [] Spiritual/emotional support [] Crisis/trauma care [] Spiritual counseling [] Bereavement support [] Provided bereavement packet [] Provided Bible/devotional materials [] Provided toy/stuffed animal, coloring book to patient or family member [] Provided Communion [] Anointing/[place] [] Salvation [x] Completed spiritual assessment [] Other: Impact on Illness or Injury [] Angry [] Fearful [] Anxious [] Often cries [] Exhaustion [] Unable to work [] Unable to attend gnosticism [] Unable to walk/stand [] Unable to read [] Unable to drive [] Unable to eat/drink [] Unable to sleep [] Unable to be with family [] Patient intubated [] Other: Summary Time spent with patient
[2021-11-28] MEDS: potassium chloride ER 20 mEq Tablet 40 MEQ PO (12:50)
[2021-11-28] MEDS: lisinopril 20 mg Tablet 40 MG PO (12:51)
--- NOTE | 2021-11-28 16:46 | PC.NURSE ---
performed bed change and bed bath, per patient and nurse request.
[2021-11-28 17:19] LABS: Glucose Point of Care 237 mg/dL (70-110)
[2021-11-28 20:00] LABS: Glucose Point of Care 281 mg/dL (70-110)
[2021-11-28] MEDS: enoxaparin 40 mg/0.4 mL Syringe SUBCUT (22:27)
[2021-11-28] MEDS: hyDRALAzine 10 mg Tablet PO (22:28)
[2021-11-28] MEDS: potassium chloride ER 20 mEq Tablet PO (22:28)
[2021-11-28 22:34] LABS: Glucose Point of Care 187 mg/dL (70-110)
[2021-11-29] VITALS (8 sets, daily range): BP systolic 116–191; BP diastolic 67–78; PULSE 62–93; RESP 14–22; TEMP 36.6–37; O2SAT 93–100
[2021-11-29 03:20] LABS: Basophils % 0.4 %; Eosinophils # 0.1 10^3/uL (0.0-0.8); Hematocrit 32.1 % (37.0-47.0); Hemoglobin 10.6 g/dL (11.5-15.3); Lymphocytes # 1.7 10^3/uL (0.8-4.8); Lymphocytes % 19.9 %; Mean Corpuscular Hemoglobin 34.9 pg (28.0-34.0); Mean Corpuscular Volume 105.6 fl (81-99); Mean Platelet Volume 9.4 fL (7.4-10.4); Monocytes % 11.5 %; Neutrophils # 5.57 10^3/uL (1.8-7.7); Neutrophils % 66.7 %; Nucleated Red Blood Cells % 0 %; Platelet Count 180 10^3/cmm (130-400); Red Blood Count 3.04 10^6/uL (4.1-5.3); Red Cell Distribution Width 14.3 % (12.1-15.1); White Blood Count 8.3 10^3/uL (4.0-10.0)
[2021-11-29 03:38] LABS: Anion Gap 12.5 (5-19); Blood Urea Nitrogen 34 mg/dL (8-23); Calcium 9.2 mg/dL (8.5-10.5); Carbon Dioxide 33 mmol/L (22-29); Chloride 91 mmol/L (98-107); Glucose 134 mg/dL (65-115); Osmolality Calculated 286 mOsm/kg (285-295); Potassium 3.5 mmol/L (3.5-5.1); Sodium 133 mmol/L (136-145)
[2021-11-29] MEDS: levothyroxine 150 mcg Tablet PO (05:46)
[2021-11-29] MEDS: predniSONE 5 mg Tablet 2.5 MG PO (05:46)
[2021-11-29] MEDS: acetaminophen 325 mg Tablet 650 MG PO (05:46)
[2021-11-29 06:32] LABS: Glucose Point of Care 162 mg/dL (70-110)
[2021-11-29] MEDS: pantoprazole DR 40 mg Tablet PO (08:20)
[2021-11-29] MEDS: dilTIAZem ER (24HR) 180 mg Capsule PO (08:20)
[2021-11-29] MEDS: pyridostigmine 60 mg Tablet 30 MG PO (08:20)
[2021-11-29] MEDS: digoxin 125 mcg Tablet PO (08:20)
[2021-11-29] MEDS: metoprolol tartrate 50 mg Tablet 100 MG PO (08:20)
[2021-11-29] MEDS: magnesium oxide 400 mg tablet PO (08:20)
[2021-11-29] MEDS: lisinopril 20 mg Tablet 40 MG PO (08:21)
[2021-11-29] MEDS: hyDRALAzine 10 mg Tablet PO ×2 (08:21→15:38)
[2021-11-29] MEDS: insulin lispro 100 unit/1 mL SUBCUT ×2 (08:26→12:03)
[2021-11-29] MEDS: nystatin cream 30 gm 1 APPLIC TOPICAL (08:28)
[2021-11-29] MEDS: insulin glargine 100 units/1 mL 15 UNIT SUBCUT (08:28)
--- NOTE | 2021-11-29 11:13 | P.DS_ITS ---
Discharge Providers Date of Admission: 11/26/21 20:56 Date of Discharge: November 29, 2021 Attending Provider at Admission: Milton Blandon Attending Provider at Discharge: Tim Robert MD Primary Care Provider: Davion Griggs MD Diagnoses at Discharge Discharge Diagnosis (1) Hypertensive urgency: Status: Acute (2) Acute hypokalemia: Status: Acute (3) Acute hyperglycemia: Status: Acute (4) CYNTHIA (acute kidney injury): Status: Acute (5) Acute encephalopathy: Status: Acute (6) Nausea and vomiting: Status: Acute (7) Duodenal ulcer due to bacteria: Status: Acute (8) Atrial fibrillation: Status: Acute (9) Physical deconditioning: Status: Acute (10) Orthostatic hypotension: Status: Acute (11) Falls frequently: Status: Acute (12) Chronic obstructive lung disease: Status: Acute Reason for Visit Reason for Visit: CHEST PAIN Hospital Course Hospital Course Admitting note of Dr. Blandon 71-year-old lady with history of COPD, CHF, chronic oxygen 2 L nasal cannula at baseline, CAD, HTN, HLD, hypothyroidism, inflammatory Tritus, A. fib not on anticoagulation due to fall risk, liver cirrhosis, recurrent UTI, other chronic medical problems was brought in for evaluation by her due to since this morning her feeling unwell, having some mild confusion, not providing reliable history, review of systems.? He states that yesterday she was having vomiting.? But apart from that had otherwise been eating okay.? Today she did not eat, did not take her medications.? She endorses chills.? Her abdomen has been sore.? She did have several bowel movements today per .? She is having mild headache.? She is not coughing.? She endorses burning with urination.? In ER on presentation she is found hypertensive, blood pressure as high as 208/83.? She is hyperglycemic, glucose 445.? With mild CYNTHIA, creatinine up to 1.2, previously baseline 0.9-1.1.? Intermittent sinus tachycardia, 102.? Respiratory rate 20- 22.? She is saturating well on small amount of nasal cannula oxygen.? Chest x- ray unremarkable.? CT head was attempted, but with chills she could not stay still enough for it. denies any recent changes in medications. endorses she has a BiPAP for COPD at home but has not been using it.? He suspects she has sleep apnea as well. She normally walks with a walker. Hospital course Patient was admitted for management and evaluation of nausea vomiting related diabetic gastroparesis. Metabolic encephalopathy improved after IV fluid hydration. ABG revealed respiratory alkalosis no signs of hypercapnia. As per the she has not been using her BiPAP at home. She did get CTA head and neck this time as well which did not show any acute embolic phenomenon. Whenever she experienced hypotension, worsening of A. fib with RVR or hyperglycemia she tends to become mute and would not communicate at all. Multiple neurological assessments have been made in the past because of her atypical presentation. She would improve within few minutes. During her hospitalization no focal deficits were noted, she was very pleasant and cooperative, she was able to go to the bathroom on her own however when she tried second time, she fell on the ground. She does have history of recurrent falls related to orthostatic hypotension for which she is kept on pyridostigmine. No active chest pain or shortness of breath. At baseline she uses 2 L of oxygen. Dehydration improved with IV fluid hydration. She was [facility] for management of A. fib RVR with Cardizem drip. She was also hypertensive. Her heart rate and blood pressure improved after initiation of beta-fela, digoxin, I have increased her dose of Cardizem 180 mg. On 11/29 she is eating, pleasant and cooperative Nonfocal neuro exam. Blood pressure and heart rate stable. She will be discharged home, she does not want to go to any skilled nursing however PT evaluation also recommended home exercise program. CT head, CTA head and neck unremarkable, white count 8.3. Physical Exam Narrative: Patient is very pleasant cooperative today Currently on 2 L nasal cannula Nonfocal neuro exam Awake alert GCS 15 Looks euvolemic Soft abdomen A. fib variable S1-S2 No signs of edema of legs Awake and alert Pleasant, Appropriate mood and affect Urinary Catheter Management: [place]: Cath Placed During This Visit: yes Reason for Continuing Indwelling Catheter: Assist Healing of Perineal & Sacral Wounds- Incontinent Patients Urinary Catheter Date of Insertion: 11/26/21 Urinary Catheter Time of Insertion: 23:53 Discharge Data Studies Completed and Pending Completed Studies During Hospitalization Category Date Time Status CT abdomen pelvis wo con [id number] Urgent Cat Scan 11/26/21 21:[address] head wo con* [id number] Stat Cat Scan 11/26/21 18:02 Completed CTA head neck [CT angio headneck* [id number]] Stat Cat Scan 11/27/21 10:32 Completed XR chest 1V portable [id number] Stat Exams 11/26/21 14:26 Completed Radiology Impressions Chest X-Ray 11/26/21 14:26 IMPRESSION: No acute findings. Head CT 11/26/21 18:02 IMPRESSION: 1. No acute intracranial abnormality. 2. Moderate diffuse cerebral atrophy and sequela of chronic small vessel ischemic disease. Abdomen/Pelvis CT 11/26/21 21:05 IMPRESSION: 1. Nephrolithiasis not significantly changed 2. Possible cirrhosis not significantly changed. 3. Left breast lesion not significantly changed. 4. No acute findings. No significant change compared with 11/04/2021. Head/Neck CTA 11/27/21 10:32 IMPRESSION: No large vessel stenosis or occlusion. IMPRESSION: There is atherosclerotic plaque at the origin of the bilateral internal carotid arteries without significant stenosis. REFERENCES: NASCET CRITERIA. The degree of internal carotid artery stenosis is based on NASCET criteria. Normal is no stenosis. Mild is less than 50% stenosis. Moderate is 50-69% stenosis. Severe is 70% to 99% stenosis. Total occlusion is no detectable patent lumen. Laboratory Results WBC 8.3 10^3/uL (4.0-10.0) 11/29/21 02:41 RBC 3.04 10^6/uL (4.1-5.3) L 11/29/21 02:41 Hgb 10.6 g/dL (11.5-15.3) L 11/29/21 02:41 Hct 32.1 % (37.0-47.0) L 11/29/21 02:41 MCV 105.6 fl (81-99) H 11/29/21 02:41 MCH 34.9 pg (28.0-34.0) H 11/29/21 02:41 MCHC 33.0 g/dL (30.0-36.0) 11/29/21 02:41 RDW 14.3 % (12.1-15.1) 11/29/21 02:41 Plt Count 180 10^3/cmm (130-400) 11/29/21 02:41 MPV 9.4 fL (7.4-10.4) 11/29/21 02:41 Neut % (Auto) 66.7 % 11/29/21 02:41 Lymph % (Auto) 19.9 % 11/29/21 02:41 [place] % (Auto) 11.5 % 11/29/21 02:41 Eos % (Auto) 1.0 % 11/29/21 02:41 Baso % (Auto) 0.4 % 11/29/21 02:41 Neut # (Auto) 5.57 10^3/uL (1.8-7.7) 11/29/21 02:41 Lymph # (Auto) 1.7 10^3/uL (0.8-4.8) 11/29/21 02:41 [place] # (Auto) 1.0 10^3/uL (0.2-0.9) H 11/29/21 02:41 Eos # (Auto) 0.1 10^3/uL (0.0-0.8) 11/29/21 02:41 Baso # (Auto) 0.0 10^3/uL (0.0-0.1) 11/29/21 02:41 Nucleated RBC % (auto) 0 % 11/29/21 02:41 Nucleated RBCs # 0.0 /100WBC 11/29/21 02:41 Specimen Type Arterial 11/27/21 10:35 Sample Site Radial, left 11/27/21 10:35 ABG pH 7.51 (7.35-7.45) H 11/27/21 10:35 ABG pCO2 51.2 mmHg (35-45) H 11/27/21 10:35 ABG pO2 111.0 mmHg (80.0-100.0) H 11/27/21 10:35 ABG HCO3 40.4 mmol/L (22-26) H 11/27/21 10:35 ABG O2 Saturation 96.4 11/27/21 10:35 ABG Base Excess 15.3 mmol/L (-2.0-2.0) H 11/27/21 10:35 Memo Test Pos 11/27/21 10:35 A-a O2 Gradient 7.1 mmHg (5-10) 11/27/21 10:35 Hematocrit 34.0 % (37-47) L 11/27/21 10:35 Hgb O2 Saturation 95.7 % (95-100) 11/27/21 10:35 Carboxyhemoglobin < 0.0 %THgb (0.4-20.1) L 11/27/21 10:35 Methemoglobin 0.9 % (0.4-1.5) 11/27/21 10:35 Total Hemoglobin 11.1 g/dL (12-16) L 11/27/21 10:35 Sodium 143.0 mmol/L (131-143) 11/27/21 10:35 Potassium 3.2 mmol/L (3.5-5.0) L 11/27/21 10:35 Glucose 215.0 mg/dL (70-115) H 11/27/21 10:35 Ionized Calcium 1.2 mmol/L (1.1-1.4) 11/27/21 10:35 O2 Delivery Device Nc 11/27/21 10:35 O2 Liters/Min 3.0 % 11/27/21 10:35 FiO2 32.0 % 11/27/21 10:35 Cardiac Monitor ID Gd 11/27/21 10:35 Sodium 133 mmol/L (136-145) L 11/29/21 02:41 Potassium 3.5 mmol/L (3.5-5.1) 11/29/21 02:41 Chloride 91 mmol/L (98-107) L 11/29/21 02:41 Carbon Dioxide 33 mmol/L (22-29) H 11/29/21 02:41 Anion Gap 12.5 (5-19) 11/29/21 02:41 BUN 34 mg/dL (8-23) H 11/29/21 02:41 Creatinine 1.4 mg/dL (0.5-0.9) H 11/29/21 02:41 GFR Calculation Not Reportable 11/29/21 02:41 Glucose 134 mg/dL (65-115) H 11/29/21 02:41 POC Glucose 162 mg/dL (70-110) H 11/29/21 06:25 Calculated Osmolality 286 mOsm/kg (285-295) 11/29/21 02:41 Lactate 2.4 mmol/L (0.5-2.2) H 11/26/21 22:46 Calcium 9.2 mg/dL (8.5-10.5) 11/29/21 02:41 Magnesium 2.2 mg/dL (1.7-2.3) 11/28/21 04:20 Total Bilirubin 0.7 mg/dL (0.15-1.2) 11/26/21 15:06 AST 31 U/L (0-32) 11/26/21 15:06 ALT 28 U/L (0-33) 11/26/21 15:06 Alkaline Phosphatase 99 IU/L (35-105) 11/26/21 15:06 Ammonia 32 umol/L (11-51) 11/27/21 07:40 Creatine Kinase 29 U/L (26-192) 11/26/21 15:06 Troponin T Baseline 21 ng/L (0-10) H 11/26/21 15:06 Troponin T 120 Minute 19.13 ng/L (0-10) H 11/26/21 17:26 Delta Troponin T -1.87 ABS# (0-10) L 11/26/21 17:26 Troponin T Hi Sens 6Hr 29.63 ng/L (0-10) H 11/26/21 21:38 Troponin T Hi Sens 6Hr Delta 8.63 ng/L (0-12) 11/26/21 21:38 Total Protein 7.5 g/dL (6.6-8.7) 11/26/21 15:06 Albumin 4.1 g/dL (3.5-5.2) 11/26/21 15:06 Globulin 3.4 g/dL (1.3-4.6) 11/26/21 15:06 TSH 0.56 uIU/mL (0.27-4.20) 11/27/21 06:30 Random Cortisol 36.59 ug/dL (2.47-19.5) H 11/26/21 17:26 Urine Color Dark yellow (Yellow) 11/26/21 21:33 Urine Appearance Clear (CLEAR) 11/26/21 21:33 Urine pH 5 (5-7) 11/26/21 21:33 Ur Specific [place] 1.020 (1.005-1.030) 11/26/21 21:33 Urine Protein 3+ (Negative) H 11/26/21 21:33 Urine Glucose (UA) 4+ (Normal) H 11/26/21 21:33 Urine Ketones 1+ (Negative) H 11/26/21 21:33 Urine Blood Neg (Negative) 11/26/21 21:33 Urine Nitrate Negative (Negative) 11/26/21 21:33 Urine Bilirubin 1+ (Negative) H 11/26/21 21:33 Urine Urobilinogen 1 mg/dL (Negative) H 11/26/21 21:33 Ur Leukocyte Esterase Negative (Negative) 11/26/21 21:33 Urine RBC 0-4 /hpf (0-2) H 11/26/21 21:33 Urine WBC 0-4 /hpf (0-5) H 11/26/21 21:33 Ur Squamous Epith Cells 0-4 /hpf (0-5) H 11/26/21 21:33 Amorphous Sediment 1+ /hpf 11/26/21 21:33 Urine Bacteria 1+ /hpf (NONE) H 11/26/21 21:33 Hyaline Casts 0-4 /lpf H 11/26/21 21:33 Urine Mucus 1+ /hpf 11/26/21 21:33 Digoxin Cancelled 11/26/21 Unknown Coronavirus 229E (PCR) Not detected (NOT DETECT) 11/26/21 21:05 Influenza Type A Ag Negative (Negative) 11/26/21 21:05 Influenza Type B Ag Negative (Negative) 11/26/21 21:05 SARS-CoV-2 (PCR) Not detected (NOT DETECT) 11/26/21 21:05 Vitals Last Vital Signs Temp 98.2 F 11/29/21 07:58 Pulse 81 11/29/21 08:20 Resp 16 11/29/21 07:58 BP 191/78 11/29/21 07:58 Pulse Ox 98 11/29/21 07:58 Discharge Plan Discharge Patient Disposition: Home Condition: Stable Prescriptions: New hydralazine 10 mg Tablet 10 mg PO TID Qty: 90 4RF nystatin 100,000 unit/gram powder 1 applic topical DAILY Qty: 60 0RF diltiazem HCl [DILT-XR] 180 mg Capsule,Ext.Rel 24h Degradable 180 mg PO DAILY Qty: 60 3RF Continued Humira Pen 40 mg/0.8 mL pen injector kit 40 mg SUBCUT Q14D Qty: 2 3RF Hold Instructions: Resume on 08/02/21. Rx Instructions: TAKES ON SATURDAYS EVERY 14 DAYS methotrexate sodium 2.5 mg tablet 7.5 mg PO Q7D Qty: 15 3RF Rx Instructions: ON SATURDAYS duloxetine 60 mg capsule,delayed release(DR/EC) 60 mg PO DAILY@08 Qty: 90 0RF Rx Instructions: Take one capsule by mouth every morning folic acid 1 mg tablet 1 mg PO DAILY@08 Qty: 90 1RF nitroglycerin [Nitrostat] 0.4 mg tablet, sublingual 0.4 mg SUBLINGUAL Q5M PRN (Reason: Chest Pain) Qty: 30 3RF Rx Instructions: MAX 3 DOSES PER EPISODE hydrocodone-acetaminophen 7.5-325 mg tablet 1 tab PO TID PRN (Reason: pain) 30 Days Qty: 90 0RF tizanidine 4 mg tablet 4 mg PO TID PRN (Reason: muscle spasticity) 30 Days Qty: 90 1RF levothyroxine [Euthyrox] 150 mcg tablet 150 mcg PO QAM 0RF calcium carbonate [Calcium 600] 600 mg calcium (1,500 mg) tablet 600 mg PO DAILY 0RF methylsulfonylmethane [MSM] 1,000 mg tablet 1,000 mg PO BID 0RF digoxin 125 mcg (0.125 mg) tablet 125 mcg PO DIRECTED Qty: 75 3RF Rx Instructions: Alternate 1/2 Tab daily, next day 1 tab acetaminophen [Arthritis Pain Reliever] 650 mg Tablet Extended Release 650 mg PO Q4H PRN (Reason: Pain) 0RF cholecalciferol (vitamin D3) [Vitamin D3] 25 mcg (1,000 unit) Tablet 2,000 unit PO DAILY@08 0RF albuterol sulfate 2.5 mg /3 mL (0.083 %) Solution For Nebulization 2.5 mg inhalation TID PRN (Reason: Shortness Of Breath) 0RF Novolin 70/30 U-100 Insulin 100 unit/mL (70-30) suspension See Rx Instructions .ROUTE .COMPLEX 0RF Rx Instructions: 55 units subcutaneously qam and 35 units qpm albuterol sulfate 90 mcg/actuation Hfa Aerosol Inhaler 2 puff INHALATION Q6H PRN (Reason: Shortness Of Breath) 0RF docusate sodium [Stool Softener] 250 mg Capsule 250 mg PO BID 0RF cyanocobalamin (vitamin B-12) [Vitamin B-12] 500 mcg Tablet 500 mcg PO DAILY 0RF chlorpheniramine maleate [ChlorTabs] 4 mg Tablet See Rx Instructions .ROUTE .COMPLEX 0RF Rx Instructions: 4 mg orally TID THEN ALTERNATES WITH BENADRYL THEN NEXT DAY prednisolone acetate 1 % Drops,Suspension 1 drp ophthalmic (eye) PRN 0RF Rx Instructions: IN RIGHT EYE diphenhydramine HCl [Benadryl] 25 mg Capsule See Rx Instructions .ROUTE .COMPLEX 0RF Rx Instructions: 25MG PO TID THEN ALTERNATES WITH CHLORTAB THE NEXT DAY pyridostigmine bromide 60 mg Tablet 30 mg PO BID Qty: 60 4RF metoprolol tartrate 50 mg Tablet 100 mg PO BID@0900,2100 Qty: 60 3RF atorvastatin 80 mg tablet 80 mg PO BEDTIME 0RF ferrous gluconate 324 mg (37.5 mg iron) tablet See Rx Instructions .ROUTE .COMPLEX 0RF Rx Instructions: ALTERNATE 1 TABLET DAILY WITH 2 TABLETS DAILY magnesium L-lactate 84 mg tablet extended release 84 mg PO BID 0RF ferrous sulfate [FeroSul] 325 mg (65 mg iron) tablet See Rx Instructions .ROUTE .COMPLEX 0RF Rx Instructions: 325mg po on sun,mon,wed and fri furosemide 20 mg tablet 10 mg PO EVERY OTHER DAY 0RF insulin lispro 100 unit/mL insulin pen See Rx Instructions .ROUTE .COMPLEX 0RF Rx Instructions: SLIDING SCALE before meals AND BEDTIME-MAX OF 40 UNITS PER DAY 150-200= 0 units 201-250= 2 units 251-300= 4 units 301-350= 6 units 351-400= 8 units sulfasalazine 500 mg tablet 500 mg PO BID@08,17 0RF prednisone 2.5 mg tablet 2.5 mg PO QAM 0RF potassium chloride 20 mEq tablet extended release 20 meq PO BID 0RF tramadol 50 mg tablet 50 mg PO TID 0RF pantoprazole 40 mg tablet,delayed release (DR/EC) 40 mg PO BID 0RF Held lisinopril 40 mg tablet 40 mg PO QPM 0RF Hold Instructions: Resume on 12/01/21. Discontinued diltiazem HCl 120 mg capsule,extended release 24hr 120 mg PO QAM 0RF Discharge Orders: Discharge Order (Routine); Ordered 11/29/21 Ordered By: Tim Robert Other Ambulatory Orders: Basic Metabolic Panel (Routine) Timeframe: 3 Days Facility: [facility] - Location: Lab - Main Lab Ordered By: Tim Robert Referrals: Davion Griggs MD [Primary Care Provider] - 4-7 days (Please follow-up with Dr. Griggs on December 05 at 10:30A.M. If you have any questions or need to reschedule. Please call ) Discharge Diet: Diabetic Discharge Activity: As per PT/OT instructions Patient Instructions: Diltiazem (By mouth) (Cardizem, Cardizem CD, Cardizem LA, Cardizem SR), Nystatin/Triamcinolone (On the skin), Hydralazine (By mouth), Chest Pain (DC), Acute Kidney Injury (DC), Hypokalemia (DC), Chest Pain Stoplight, Opioid Safety Discharge Attestations Time Spent in Discharge Care*: less than 30 min Status at Discharge: Cognitive status at discharge: cognitively intact , Behavioral status at discharge: cooperative , Quality Metrics Clinical Quality Measures [ No reported AMI, CVA or VTE this stay] Coding Level of Care Code Acute Chg FW DC note Diagnoses Hypertensive urgency I16.0 Acute hypokalemia E87.6 Acute hyperglycemia R73.9 CYNTHIA (acute kidney injury) N17.9 Acute encephalopathy G93.40 Nausea and vomiting R11.2 Duodenal ulcer due to bacteria K26.9; B96.89 Atrial fibrillation I48.91 Physical deconditioning R53.81 Orthostatic hypotension I95.1 Falls frequently R29.6 Chronic obstructive lung disease J44.9
[2021-11-29 11:59] LABS: Glucose Point of Care 297 mg/dL (70-110)
--- NOTE | 2021-11-29 16:44 | PC.NURSE ---
discharge instructions given and explained.pt verb understanding of instructions.discharged via w/c to exit at 1620.spouse to drive pt home
== END 2021-11-29 16:20 | disposition home or self-care (01) ==
LOC: ER 19:42 → MEDSURG 21:29 → CSU 11-27 17:25
PROVIDERS: Family Medicine; Admitting Provider Internal Medicine; Emergency Provider Emergency Medicine; PCP Family Medicine; Visit Provider Internal Medicine
DX: I16.0 Hypertensive urgency (principal); E87.6 Hypokalemia; R73.9 Hyperglycemia, unspecified; N17.9 Acute kidney failure, unspecified; G93.40 Encephalopathy, unspecified; R11.2 Nausea with vomiting, unspecified; K26.9 Duodenal ulcer, unspecified as acute or chronic, without hemorrhage or perforation; B96.89 Other specified bacterial agents as the cause of diseases classified elsewhere; I48.91 Unspecified atrial fibrillation; R53.81 Other malaise; I95.1 Orthostatic hypotension; R29.6 Repeated falls; J44.9 Chronic obstructive pulmonary disease, unspecified; Z99.81 Dependence on supplemental oxygen; E86.0 Dehydration; I10 Essential (primary) hypertension; G47.33 Obstructive sleep apnea (adult) (pediatric); M19.91 Primary osteoarthritis, unspecified site; Z79.52 Long term (current) use of systemic steroids; G47.30 Sleep apnea, unspecified
CPT/HCPCS: 36415; 36416; 36600; 51702; 70450; 70496; 70498; 71045; 74176; 80048; 80051; 80053; 80162; 81001; 82140; 82330; 82533; 82550; 82805; 82962; 83605; 83735; 84443; 84484; 85025; 87635; 87804; 93005; 96365; 96372; 96375; 97162; 97165; 99285; C9113; G0378; J0360; J1650; J1815 ×2; J3475; J3480; J3490; J7512; Q9967

== ENCOUNTER 2021-11-30 16:30 | Inpatient (IN) | payer MEDICARE, SELFPAY ==
--- NOTE | 2021-11-30 16:33 | ED_ITS ---
HPI - Altered Mental Status General: Chief Complaint: Altered Mental Status Stated Complaint: AMS Time Seen by Provider: 11/30/21 16:33 Limitations: altered mental status History of Present Illness: Ms. Parker is a 71-year-old lady with complex past medical history including recent hospitalization who presents to the emergency department due to mental status change. She was doing well at hospital discharge and even went out to dinner. Overnight she went to bed and found her at approximately 3 PM much more somnolent. No focal symptoms endorsed with it. The patient herself has generalized symptoms including thirst and abdominal discomfort. Overall course of symptoms has persisted. Intensity is moderate to severe. No other specific changes in health, exacerbating, or alleviating factors identified. Onset (ago): hour(s) Severity: severe Consistency of symptoms: Waxing and Waning Context: history of similar presentation and other Review of Systems General: Reports: ROS unobtainable due to mental status PFSH ED PFSH: Medical History Anxiety and depression CHF exacerbation Chronic knee pain Chronic low back pain COPD (chronic obstructive pulmonary disease) Oxygen dependent, 2 L at baseline Coronary artery disease COVID-14 August 2020 Duodenal ulcer due to bacteria Fibromyalgia High risk medication use Hyperlipidemia Hypertension Hypothyroidism Immunization counseling Inflammatory arthritis Intermittent atrial fibrillation Because the patient history of frequent fall she was thought to be high risk for bleeding complications. So she is taking only the aspirin at this time. SHE HAS EASY BRUISING WELL Left renal mass Liver cirrhosis Low back pain of over 3 months duration Lung nodule Narrow complex tachycardia Osteoarthritis of knees, bilateral Poorly controlled diabetes mellitus Psychiatric care Recurrent UTI Seronegative rheumatoid arthritis of both hands Unstable angina Urgency incontinence UTI (urinary tract infection) Surgical History History of cardiac cath History of cholecystectomy History of hysterectomy History of knee replacement History of thyroid surgery Family History Other CAD (coronary artery disease) Cancer Denies family history of Anesthesia complication Bleeding disorder Social History Smoking and tobacco status: former smoker Quit status (tobacco): has quit using tobacco Year quit tobacco: 2005 Second hand smoke exposure: No Alcohol intake: never Adopted: No Caregiver/support person: No Lives independently: No Household members: spouse Marital status: Current occupational status: retired History of recent travel: No Current gender identity: Female Female Reproductive History: Date of last menstrual period: 11/18/20 Physical Exam Const: COMMON NORMALS: patient oriented x3 GENERAL APPEARANCE: cooperative and well developed OTHER: Patient somnolent and falls asleep mid conversation requiring frequent stimuli HENMT: COMMON NORMALS: normocephalic and atraumatic HEAD & SCALP: normocephalic and atraumatic Eye: COMMON NORMALS: conjunctivae normal CONJUNCTIVA: Yes conjunctivae normal SCLERA: sclerae normal Neck/C-Spine: COMMON NORMALS: supple GENERAL: Yes trachea midline Resp: EFFORT & INSPECTION: Yes able to speak in complete sentences AUSCULTATION: diminished lung sounds Cardio: COMMON NORMALS: regular rate and regular rhythm RATE: regular rate RHYTHM: regular rhythm GI: COMMON NORMALS: Soft to palpation PALPATION: Yes Soft to palpation and No Tenderness to palpation present (GI) PERCUSSION: normal to percussion Extremity: GENERAL: Yes normal exam except as noted and No edema Neuro: COMMON NORMALS: patient oriented x3, CN's II-XII intact bilaterally, moves all extremities, no focal motor deficits and no sensory deficits noted SENSORIUM/ORIENTATION: No Orientation impaired OTHER: Somnolent without other focal neurologic deficits. Course ED course: - Patient was seen and evaluated by me at bedside - Patient placed on cardiac monitors, IV access obtained - Initial evaluation notable for exam as above - Labs and xrays personally interpreted by me. EKGs from 1725 and 2131 show atrial fibrillation with RVR. No STEMI. - Labs notable for no leukocytosis, normal hemoglobin. ABG with no obvious c ause of patient's mental status. Metabolic panel with similar findings to previous. Delta troponin negative. - Imaging notable for no lobar consolidation or pneumothorax on chest x-ray. CT without evidence of intracranial hemorrhage or mass. - Upon serial reexamination after treatment the patient was similar. She developed atrial fibrillation with RVR and was treated with bolus and Cardizem drip. - Based on patient history, evaluation, and testing as interpreted the most likely cause of the patient's condition is atrial fibrillation with RVR as well as unspecified altered mental status - The results of ED evaluation were discussed with the patient including plan for admission due to requirement for level of care not available if discharged to prevent significant worsening/deterioration. Challenging situation with recurrent presentations for similar. Patient ultimately is not safe at home and does not have a adequate level of care - Admitting service was contacted and Dr Diaz with the hospitalist service. Agreed to admit the patient - Patient was admitted without further deterioration or significant events. Subsequently urinalysis resulted and found to have urinary tract infection which likely is complicated urinary tract infection given mental status change. Rocephin ordered. Note: Click bubbles or prepopulated hatch in note writing are used for assistance with data collection and billing and are inherently more limited than narrative and other text portions of this note. Please use narrative for additional clinical history and defer to narrative/free test for any case of contradictory information. If information appears in only free text or click bubble it should be considered present or absent as reported. Please contact note production underwriter for clarifications of clinical information or contradictory information. MDM is a brief summary, contradictory or erroneous seeming information should be clarified and full note should be reviewed. Vital Signs: Vital signs: Vital Signs Temperature 98.3 F 12/03/21 07:32 Pulse Rate 54 L 12/03/21 14:19 Respiratory Rate 18 12/03/21 14:19 Blood Pressure 156/92 12/03/21 14:19 Pulse Oximetry 95 12/03/21 14:19 MDM - Altered Mental Status Medical Decision Making 71-year-old lady with complex past medical history and frequent ED presentation for similar presentations presenting with altered mental status. Patient developed atrial fibrillation with RVR likely secondary to missed medications. Given mental status she was started on a drip. Additionally found to have complicated UTI which was treated with Rocephin. Admitted for further management. Medical Records I reviewed the patient's medical records. Lab Data I reviewed the patient's lab results. : 12/03/21 04:39 12/03/21 04:39 Radiology Impressions Chest X-Ray 11/30/21 17:03 IMPRESSION: Cardiomegaly without pulmonary edema. Head CT 11/30/21 17:09 IMPRESSION: 1. No acute intracranial abnormality. Laboratory Results WBC 4.9 10^3/uL (4.0-10.0) 12/02/21 09:45 RBC 2.87 10^6/uL (4.1-5.3) L 12/02/21 09:45 Hgb 10.0 g/dL (11.5-15.3) L 12/02/21 09:45 Hct 29.7 % (37.0-47.0) L 12/02/21 09:45 MCV 103.5 fl (81-99) H 12/02/21 09:45 MCH 34.8 pg (28.0-34.0) H 12/02/21 09:45 MCHC 33.7 g/dL (30.0-36.0) 12/02/21 09:45 RDW 13.5 % (12.1-15.1) 12/02/21 09:45 Plt Count 148 10^3/cmm (130-400) 12/02/21 09:45 MPV 10.1 fL (7.4-10.4) 12/02/21 09:45 Neut % (Auto) 63.9 % 12/02/21 09:45 Lymph % (Auto) 20.9 % 12/02/21 09:45 [place] % (Auto) 11.8 % 12/02/21 09:45 Eos % (Auto) 2.0 % 12/02/21 09:45 Baso % (Auto) 0.8 % 12/02/21 09:45 Neut # (Auto) 3.15 10^3/uL (1.8-7.7) 12/02/21 09:45 Lymph # (Auto) 1.0 10^3/uL (0.8-4.8) 12/02/21 09:45 [place] # (Auto) 0.6 10^3/uL (0.2-0.9) 12/02/21 09:45 Eos # (Auto) 0.1 10^3/uL (0.0-0.8) 12/02/21 09:45 Baso # (Auto) 0.0 10^3/uL (0.0-0.1) 12/02/21 09:45 Nucleated RBC % (auto) 0 % 12/02/21 09:45 Nucleated RBCs # 0.0 /100WBC 12/02/21 09:45 PT 13.60 SECONDS (12.1-14.9) 11/30/21 02:10 INR 1.01 (0.8-1.2) 11/30/21 02:10 Specimen Type Arterial 11/30/21 17:24 Sample Site Radial, left 11/30/21 17:24 ABG pH 7.48 (7.35-7.45) H 11/30/21 17:24 ABG pCO2 48.9 mmHg (35-45) H 11/30/21 17:24 ABG pO2 143.0 mmHg (80.0-100.0) H 11/30/21 17:24 ABG HCO3 36.4 mmol/L (22-26) H 11/30/21 17:24 ABG Base Excess 11.3 mmol/L (-2.0-2.0) H 11/30/21 17:24 Memo Test Pos 11/30/21 17:24 Hematocrit 36.6 % (37-47) L 11/30/21 17:24 O2 Delivery Device Nc 11/30/21 17:24 O2 Liters/Min 3.0 % 11/30/21 17:24 FiO2 32.0 % 11/30/21 17:24 Cancer Registry Manager ID Cak 11/30/21 17:24 Sodium 137 mmol/L (136-145) 12/02/21 09:45 Potassium 3.6 mmol/L (3.5-5.1) 12/02/21 09:45 Chloride 95 mmol/L (98-107) L 12/02/21 09:45 Carbon Dioxide 32 mmol/L (22-29) H 12/02/21 09:45 Anion Gap 13.6 (5-19) 12/02/21 09:45 BUN 24 mg/dL (8-23) H 12/02/21 09:45 Creatinine 1.0 mg/dL (0.5-0.9) H 12/02/21 09:45 GFR Calculation Not Reportable 12/02/21 09:45 Glucose 306 mg/dL (65-115) H 12/02/21 09:45 POC Glucose 229 mg/dL (70-110) H 12/02/21 11:34 Calculated Osmolality 300 mOsm/kg (285-295) H 12/02/21 09:45 Calcium 9.5 mg/dL (8.5-10.5) 12/02/21 09:45 Total Bilirubin 0.5 mg/dL (0.15-1.2) 11/30/21 17:27 AST 30 U/L (0-32) 11/30/21 17:27 ALT 24 U/L (0-33) 11/30/21 17:27 Alkaline Phosphatase 89 IU/L (35-105) 11/30/21 17:27 Ammonia 41 umol/L (11-51) 11/30/21 02:10 Creatine Kinase 35 U/L (26-192) 11/30/21 17:27 Troponin T Baseline 36 ng/L (0-10) H 11/30/21 17:27 Troponin T 120 Minute 34.86 ng/L (0-10) H 11/30/21 20:09 Delta Troponin T -1.14 ABS# (0-10) L 11/30/21 20:09 Troponin T Hi Sens 6Hr 28.49 ng/L (0-10) H 11/30/21 23:13 Troponin T Hi Sens 6Hr Delta -7.51 ng/L (0-12) L 11/30/21 23:13 NT-Pro-B Natriuret Pep 2319 pg/mL (0-125) H 11/30/21 17:27 Total Protein 7.2 g/dL (6.6-8.7) 11/30/21 17:27 Albumin 3.9 g/dL (3.5-5.2) 11/30/21 17:27 Globulin 3.3 g/dL (1.3-4.6) 11/30/21 17:27 Vitamin B12 > 2000 pg/mL (232-1245) H 12/01/21 02:10 Folate 17.7 ng/mL (4.8-37.3) 12/01/21 02:10 TSH 1.32 uIU/mL (0.27-4.20) 12/01/21 02:10 Free T4 1.36 ng/dL (0.82-1.77) 12/01/21 02:10 Urine Color Yellow (Yellow) 11/30/21 22:30 Urine Appearance Cloudy (CLEAR) 11/30/21 22:30 Urine pH 5 (5-7) 11/30/21 22:30 Ur Specific [place] 1.025 (1.005-1.030) 11/30/21 22:30 Urine Protein 3+ (Negative) H 11/30/21 22:30 Urine Glucose (UA) Norm (Normal) 11/30/21 22:30 Urine Ketones Negative (Negative) 11/30/21 22:30 Urine Blood 3+ (Negative) H 11/30/21 22:30 Urine Nitrate Negative (Negative) 11/30/21 22:30 Urine Bilirubin Neg (Negative) 11/30/21 22:30 Urine Urobilinogen Norm mg/dL (Negative) 11/30/21 22:30 Ur Leukocyte Esterase 2+ (Negative) H 11/30/21 22:30 Urine RBC 5-10 /hpf (0-2) H 11/30/21 22:30 Urine WBC Too numerous to cnt /hpf (0-5) H 11/30/21 22:30 Ur Squamous Epith Cells 0-4 /hpf (0-5) H 11/30/21 22:30 Amorphous Sediment Not Reportable 11/30/21 22:30 Urine Bacteria 3+ /hpf (NONE) H 11/30/21 22:30 Urine Mucus Trace /hpf 11/30/21 22:30 Digoxin 0.8 ng/mL (0.6-1.2) 11/30/21 17:27 Critical Care Time Critical Care Time: Critical Care Time: Yes Total Critical Care Time: 45 Attestation: Due to a high probability of clinically significant, possibly life threatening deterioration, the patient required my highest level of attention and preparedness to intervene emergently and I personally spent this critical care time directly and personally managing the patient. This critical care time included obtaining a history; examining the patient; pulse oximetry; ordering and review of laboratory and imaging studies; arranging urgent treatment with development of a management plan; evaluation of patient's response to treatment; frequent reassessment; and, discussions with other providers as applicable. It was exclusive of separately billable procedures. Primary system involved is [facility] and cardiovascular Discharge Plan Discharge Patient Disposition: Placed in Observation Admit Provider: Jesus Diaz Clinical Impression: Atrial fibrillation with RVR, Somnolence, Complicated urinary tract infection Discharge Diet: Cardiac Discharge Activity: Increase activity as tolerated Coding Level of Care Code ED Dental Prosthetist for Dougie Samson
[2021-11-30 16:41] VITALS: BP 139/69; PULSE 118; RESP 22; TEMP 37; O2SAT 98; BMI 36.4
--- NOTE | 2021-11-30 17:03 | XRR_ITS ---
PROCEDURE INFORMATION: Exam: XR Chest Exam date and time: 11/30/2021 5:16 PM Age: 71 years old Clinical indication: Shortness of breath; Additional info: AMS TECHNIQUE: Imaging protocol: XR of the chest. Views: 1 view. COMPARISON: CR XR chest 1V portable [id number] 11/26/2021 2:38 PM FINDINGS: Lungs: The lungs are clear. No consolidation. Pleural spaces: Unremarkable. No pleural effusion. No pneumothorax. Heart/Mediastinum: Cardiomegaly. Bones/joints: Unremarkable. XR/XR chest 1V portable [id number] IMPRESSION: Cardiomegaly without pulmonary edema.
--- NOTE | 2021-11-30 17:04 | ECG_ITS ---
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 Measurements Intervals [place] Rate: 131 P: [place]: QRS: -86 QRSD: 156 T: 17 QT: 368 QTc: 543 Interpretive Statements ATRIAL FIBRILLATION WITH RAPID VENTRICULAR RESPONSE RIGHT BUNDLE BRANCH BLOCK LEFT ANTERIOR FASCICULAR BLOCK MINIMAL VOLTAGE CRITERIA FOR LVH, CONSIDER NORMAL VARIANT POSSIBLE ANTERIOR MYOCARDIAL INFARCTION , OF INDETERMINATE AGE ST DEPRESSION, CONSIDER SUBENDOCARDIAL INJURY Compared to ECG 11/27/2021 12:11:55 Aberrant conduction of supraventricular beat(s) no longer present Ventricular premature complex(es) no longer present Myocardial infarct finding still present ST (T wave) deviation still present Electronically Signed On 11-30-2021 18:22:02 CDT by Lucia Oakley M.D. [id number]
--- NOTE | 2021-11-30 17:09 | CTR_ITS ---
PROCEDURE INFORMATION: Exam: CT Head Without Contrast Exam date and time: 11/30/2021 5:59 PM Age: 71 years old Clinical indication: Altered mental status/memory loss; Additional info: AMS TECHNIQUE: Imaging protocol: Computed tomography of the head without contrast. Radiation optimization: All CT scans at this facility use at least one of these dose optimization techniques: automated exposure control; mA and/or kV adjustment per patient size (includes targeted exams where dose is matched to clinical indication); or iterative reconstruction. COMPARISON: CT head wo con* [id number] 11/26/2021 9:56 PM RADIATION DOSE METRICS: Total DLP (mGy-cm): 867.97 FINDINGS: Brain: Mild diffuse cortical volume loss. Moderate hypodensities in supratentorial periventricular and subcortical white matter, consistent with microangiopathy. No intracranial hemorrhage. Cerebral ventricles: No ventriculomegaly. Paranasal sinuses: Visualized sinuses are unremarkable. No fluid levels. Mastoid air cells: Visualized mastoid air cells are well aerated. Orbital cavities: Prior cataract surgery. Vasculature: No hyperdense artery. Bones/joints: Unremarkable. No acute fracture. Soft tissues: Unremarkable. Other findings: The patient's head is malpositioned in the CT gantry. CT/CT head wo con* [id number] IMPRESSION: 1. No acute intracranial abnormality.
[2021-11-30 17:34] LABS: Basophils # 0.1 10^3/uL (0.0-0.1); Basophils % 0.7 %; Eosinophils # 0.1 10^3/uL (0.0-0.8); Eosinophils % 1.1 %; Hematocrit 35.7 % (37.0-47.0); Hemoglobin 12.2 g/dL (11.5-15.3); Lymphocytes # 1.3 10^3/uL (0.8-4.8); Lymphocytes % 15.7 %; Mean Corpuscular HGB Conc 34.2 g/dL (30.0-36.0); Mean Corpuscular Hemoglobin 34.5 pg (28.0-34.0); Mean Corpuscular Volume 100.8 fl (81-99); Mean Platelet Volume 9.5 fL (7.4-10.4); Monocytes # 0.9 10^3/uL (0.2-0.9); Monocytes % 11.4 %; Neutrophils # 5.79 10^3/uL (1.8-7.7); Neutrophils % 70.5 %; Nucleated Red Blood Cells % 0 %; Platelet Count 208 10^3/cmm (130-400); Red Blood Count 3.54 10^6/uL (4.1-5.3); White Blood Count 8.2 10^3/uL (4.0-10.0)
[2021-11-30 17:36] LABS: ABG PCO2 48.9 mmHg (35-45); ABG PH Result 7.48 (7.35-7.45); Arterial Blood Gas Hematocrit 36.6 % (37-47); Base Excess ABG 11.3 mmol/L (-2.0-2.0); Blood Gas Allen Test Pos; Blood Gas Operator Identificat CAK; Blood Gas Sample Site Radial, left; Blood Gas Sample Type Arterial; HCO3 ABG 36.4 mmol/L (22-26); Oxygen Device NC
[2021-11-30 17:59] LABS: Troponin(5th) Baseline 36 ng/L (0-10)
[2021-11-30 18:06] LABS: Alanine Aminotransferase 24 U/L (0-33); Albumin Level 3.9 g/dL (3.5-5.2); Alkaline Phosphatase 89 IU/L (35-105); Anion Gap 14.6 (5-19); Aspartate Amino Transferase 30 U/L (0-32); Blood Urea Nitrogen 35 mg/dL (8-23); Calcium 10.3 mg/dL (8.5-10.5); Carbon Dioxide 32 mmol/L (22-29); Chloride 96 mmol/L (98-107); Creatinine Clr Calc Pharmacy 48.7336; Globulin 3.3 g/dL (1.3-4.6); Glucose 225 mg/dL (65-115); NT Pro B Type Natriuretic Pept 2319 pg/mL (0-125); Osmolality Calculated 303 mOsm/kg (285-295); Potassium 3.6 mmol/L (3.5-5.1); Sodium 139 mmol/L (136-145); Total Bilirubin 0.5 mg/dL (0.15-1.2); Total Protein 7.2 g/dL (6.6-8.7)
[2021-11-30 18:12] LABS: Glucose Point of Care 235 mg/dL (70-110)
--- NOTE | 2021-11-30 19:04 | ECG_ITS ---
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 Measurements Intervals [place] Rate: 133 P: [place]: QRS: -84 QRSD: 139 T: 50 QT: 357 QTc: 532 Interpretive Statements ATRIAL FIBRILLATION WITH RAPID VENTRICULAR RESPONSE RIGHT BUNDLE BRANCH BLOCK [120+ ms QRS DURATION, UPRIGHT V1, 40+ ms S IN I/aVL/V4/V5/V6] LEFT ANTERIOR FASCICULAR BLOCK [QRS AXIS <= -45, QR IN I, RS IN II] MINIMAL VOLTAGE CRITERIA FOR LVH, CONSIDER NORMAL VARIANT [MEETS CRITERIA IN ONE OF: R(aVL), S(V1), R(V5), R(V5/V6)+S(V1)] POSSIBLE ANTEROSEPTAL MYOCARDIAL INFARCTION , OF INDETERMINATE AGE [30 ms Q WAVE IN V1-V4] Compared to ECG 11/30/2021 17:25:07 ST (T wave) deviation no longer present Myocardial infarct finding still present Electronically Signed On 12-01-2021 16:14:12 CDT by Min Tipton M.D. [id number]
[2021-11-30 20:37] LABS: Troponin 5 2HR 34.86 ng/L (0-10)
[2021-11-30 20:38] LABS: Troponin 5 2HR Delta -1.14 ABS# (0-10)
[2021-11-30 22:02] LABS: Digoxin 0.8 ng/mL (0.6-1.2)
[2021-11-30 22:06] VITALS: BP 164/133; PULSE 82; RESP 18; O2SAT 98
--- NOTE | 2021-11-30 23:04 | ECG_ITS ---
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 Measurements Intervals [place] Rate: 110 P: [place]: QRS: -75 QRSD: 157 T: 32 QT: 386 QTc: 522 Interpretive Statements ATRIAL FIBRILLATION WITH RAPID VENTRICULAR RESPONSE WITH ABERRANT CONDUCTION OR VENTRICULAR PREMATURE COMPLEXES RIGHT BUNDLE BRANCH BLOCK [120+ ms QRS DURATION, UPRIGHT V1, 40+ ms S IN I/aVL/V4/V5/V6] LEFT ANTERIOR FASCICULAR BLOCK [QRS AXIS <= -45, QR IN I, RS IN II] MODERATE VOLTAGE CRITERIA FOR LVH, CONSIDER NORMAL VARIANT [MEETS CRITERIA IN ONE OF: R(aVL), S(V1), R(V5), R(V5/V6)+S(V1)] POSSIBLE ANTERIOR MYOCARDIAL INFARCTION , OF INDETERMINATE AGE Compared to ECG 11/30/2021 21:32:36 Aberrant conduction of supraventricular beat(s) now present Ventricular premature complex(es) now present Myocardial infarct finding still present Electronically Signed On 12-01-2021 16:14:36 CDT by Min Tipton M.D. [id number]
[2021-11-30 23:08] LABS: Glucose Urine UA Norm (Normal); Ketones Urine Negative (Negative); Protein Urine 3+ (Negative); Specific Gravity, Urine 1.025 (1.005-1.030); Urine Appearance Cloudy (CLEAR); Urine Color Yellow (Yellow); pH Urine 5 (5-7)
[2021-11-30 23:09] LABS: Add Urine Microscopic? YES; Bilirubin Urine Neg (Negative); Blood Urine 3+ (Negative); Leukocyte Esterase Urine 2+ (Negative); Nitrate Urine Negative (Negative); Urobilinogen Urine Norm (Negative)
[2021-11-30 23:10] LABS: WBC Urine TOO NUMEROUS TO CNT /hpf (0-5)
[2021-11-30 23:12] LABS: Add Urine Culture? Yes; Bacteria Urine 3+ /hpf; Mucus Urine TRACE /hpf; Squamous Epithelial Cell Urine 0-4 /hpf (0-5)
[2021-11-30 23:48] VITALS: BP 148/113; PULSE 121; RESP 20; O2SAT 99
[2021-12-01] VITALS (13 sets, daily range): BP systolic 117–170; BP diastolic 69–113; PULSE 83–139; RESP 15–23; TEMP 36.4–36.8; O2SAT 97–99
[2021-12-01 00:11] LABS: Troponin 5 6HR 28.49 ng/L (0-10)
[2021-12-01 00:13] LABS: Troponin 5 6HR Delta -7.51 ng/L (0-12)
--- NOTE | 2021-12-01 00:37 | P.HP_ITS ---
Providers/Chief Complaint Admitting Physician: Jesus Diaz DO Primary Care Provider: Davion Griggs MD Chief Complaint: AMS History of Present Illness The patient is a 71-year-old female who was transferred to the emergency department for encephalopathy. The patient was recently hospitalized at this facility from November 26, 2021 until November 29, 2021. Upon review of her medical records, it appears that the patient has been hospitalized on numerous occasions for very similar issues. Upon review of systems/medical records, patient has documented history of chronic pain with opiate dependence and I suspect she may be overdosing/overdosing opiates on a frequent basis. At the time of my encounter, the patient is somnolent to stuporous and unable to provide history of present illness or past medical history. She presents for further evaluation Review of Systems General: Reports: ROS unobtainable due to mental status Medications/Allergies Home Medications Medication Instructions Recorded Confirmed Last Taken Type acetaminophen 650 mg 650 mg PO Q4H PRN 10/12/19 11/27/21 11/04/21 History tablet,extended release (Arthritis Pain Reliever) cholecalciferol (vitamin D3) 25 2,000 unit PO DAILY@08 10/12/19 11/27/21 11/04/21 History mcg (1,000 unit) tablet (Vitamin D3) albuterol sulfate 2.5 mg INHALATION TID PRN 10/08/20 11/27/21 Unknown History insulin human U-100 NPH-regulr See Rx Instructions .ROUTE .COMPLEX 10/08/20 11/27/21 11/04/21 History 70-30 mix 100 unit/mL subcutaneous susp (Novolin 70/30 U-100 Insulin) nitroglycerin 0.4 mg sublingual 0.4 mg SUBLINGUAL Q5M PRN #30 tab 02/08/21 11/27/21 Unknown Rx tablet (Nitrostat) albuterol sulfate 90 mcg/actuation 2 puff INHALATION Q6H PRN 03/16/21 11/27/21 Unknown History aerosol inhaler chlorpheniramine maleate 4 mg See Rx Instructions .ROUTE .COMPLEX 03/16/21 11/27/21 05/06/21 History tablet (ChlorTabs) cyanocobalamin (vitamin B-12) 500 500 mcg PO DAILY 03/16/21 11/27/21 11/04/21 History mcg tablet (Vitamin B-12) diphenhydramine HCl 25 mg capsule See Rx Instructions .ROUTE .COMPLEX 03/16/21 11/27/21 05/05/21 History (Benadryl) docusate sodium 250 mg capsule 250 mg PO BID 03/16/21 11/27/21 11/03/21 History (Stool Softener) prednisolone acetate 1 % eye 1 drp OPHTHALMIC (EYE) PRN 03/16/21 11/27/21 05/06/21 History drops,suspension folic acid 1 mg tablet 1 mg PO DAILY@08 #90 tab 04/25/21 11/27/21 11/04/21 Rx ferrous gluconate 324 mg (37.5 mg See Rx Instructions .ROUTE .COMPLEX 05/06/21 11/27/21 11/04/21 History iron) tablet magnesium L-lactate 84 mg 84 mg PO BID 05/06/21 11/27/21 11/04/21 History tablet,extended release hydrocodone 7.5 mg-acetaminophen 1 tab PO TID PRN 30 Days #90 tab 06/21/21 11/27/21 09/13/21 10:00 Rx 325 mg tablet 1/2 tab tizanidine 4 mg tablet 4 mg PO TID PRN 30 Days #90 tab 06/21/21 11/27/21 09/13/21 10:00 Rx calcium carbonate 600 mg calcium 600 mg PO DAILY 06/27/21 11/27/21 11/04/21 History (1,500 mg) tablet (Calcium) levothyroxine 150 mcg tablet 150 mcg PO QAM 06/27/21 11/27/21 11/04/21 History (Euthyrox) methylsulfonylmethane 1,000 mg 1,000 mg PO BID 06/27/21 11/27/21 11/04/21 History tablet (MSM) metoprolol tartrate 50 mg tablet 100 mg PO BID@0900,2100 #60 tab 07/12/21 11/27/21 11/04/21 Rx pyridostigmine bromide 60 mg tablet 30 mg PO BID #60 tab 07/12/21 11/27/21 11/04/21 Rx adalimumab 40 mg/0.8 mL 40 mg (0.8 mL) SUBCUT Q14D #2 ea 08/10/21 11/27/21 09/10/21 Rx subcutaneous pen kit (Humira Pen) methotrexate sodium 2.5 mg tablet 7.5 mg PO Q7D #15 tab 08/10/21 11/27/21 10/29/21 Rx ferrous sulfate 325 mg (65 mg See Rx Instructions .ROUTE .COMPLEX 09/13/21 11/27/21 11/04/21 History iron) tablet (FeroSul) furosemide 20 mg tablet 10 mg PO EVERY OTHER DAY 09/13/21 11/27/21 09/12/21 History insulin lispro 100 unit/mL See Rx Instructions .ROUTE .COMPLEX 09/13/21 11/27/21 11/04/21 History subcutaneous pen pantoprazole 40 mg tablet,delayed 40 mg PO BID 09/13/21 11/27/21 11/04/21 History release potassium chloride 20 mEq 20 meq PO BID 09/13/21 11/27/21 11/04/21 History tablet,extended release prednisone 2.5 mg tablet 2.5 mg PO QAM 09/13/21 11/27/21 11/04/21 History sulfasalazine 500 mg tablet 500 mg PO BID@08,17 09/13/21 11/27/21 11/04/21 History tramadol 50 mg tablet 50 mg PO TID 09/13/21 11/27/21 11/04/21 History duloxetine 60 mg capsule,delayed 60 mg PO DAILY@08 #90 cap 10/27/21 11/27/21 11/04/21 Rx release atorvastatin 80 mg tablet 80 mg PO BEDTIME 11/04/21 11/27/21 11/03/21 History lisinopril 40 mg tablet 40 mg PO QPM 11/04/21 11/27/21 11/03/21 History digoxin 125 mcg (0.125 mg) tablet 125 mcg PO DIRECTED #75 tab 11/09/21 11/27/21 Unknown Rx diltiazem HCl 180 mg 180 mg PO DAILY #60 cap 11/29/21 Unknown Rx capsule,extended release 24 hr, controlled (DILT-XR) hydralazine 10 mg tablet 10 mg PO TID #90 tab 11/29/21 Unknown Rx nystatin 100,000 unit/gram topical 1 applic TOPICAL DAILY #60 g 11/29/21 Unknown Rx powder Allergies Allergy/AdvReac Type Severity Reaction Status Date / Time adhesive tape Allergy rash Verified 11/04/21 15:11 cinnamon Allergy sinus Verified 11/04/21 15:11 codeine Allergy unknown Verified 11/04/21 15:11 cedar Allergy sinus Uncoded 11/04/21 15:11 pine Allergy sinus Uncoded 11/04/21 15:11 pork food Allergy ADR-Nausea Uncoded 11/04/21 15:11 PFSH Acute PFSH: Medical History Anxiety and depression CHF exacerbation Chronic knee pain Chronic low back pain COPD (chronic obstructive pulmonary disease) Oxygen dependent, 2 L at baseline Coronary artery disease COVID-14 August 2020 Duodenal ulcer due to bacteria Fibromyalgia High risk medication use Hyperlipidemia Hypertension Hypothyroidism Immunization counseling Inflammatory arthritis Intermittent atrial fibrillation Because the patient history of frequent fall she was thought to be high risk for bleeding complications. So she is taking only the aspirin at this time. SHE HAS EASY BRUISING WELL Left renal mass Liver cirrhosis Low back pain of over 3 months duration Lung nodule Narrow complex tachycardia Osteoarthritis of knees, bilateral Poorly controlled diabetes mellitus Psychiatric care Recurrent UTI Seronegative rheumatoid arthritis of both hands Unstable angina Urgency incontinence UTI (urinary tract infection) Surgical History History of cardiac cath History of cholecystectomy History of hysterectomy History of knee replacement History of thyroid surgery Family History Other CAD (coronary artery disease) Cancer Denies family history of Anesthesia complication Bleeding disorder Social History Smoking and tobacco status: former smoker Quit status (tobacco): has quit using tobacco Year quit tobacco: 2005 Second hand smoke exposure: No Alcohol intake: never Adopted: No Caregiver/support person: No Lives independently: No Household members: spouse Marital status: Current occupational status: retired History of recent travel: No Current gender identity: Female Female Reproductive History: Date of last menstrual period: 11/18/20 Vitals/I&O/Wt Last Vital Signs Temp 98.6 F 11/30/21 16:41 Pulse 121 H 11/30/21 23:48 Resp 20 H 11/30/21 23:48 BP 148/113 11/30/21 23:48 Pulse Ox 99 11/30/21 23:48 11/30/21 11/30/21 12/01/21 14:59 22:59 06:59 Intake Total 8.25 / 8.25 Balance 8.25 / 8.25 Weight last 48 hrs Weight 99.337 kg Physical Exam Narrative: General: -Alert -No acute distress -No dyspnea -No tachypnea Head: -Atraumatic -Normocephalic Eyes: -Pupils equally round and reactive to light and accommodation -Extraocular muscles intact Neurological: -Cranial nerves II-XII intact Neck: -No jugular venous distention -No thyromegaly -No cervical lymphadenopathy Heart: -Regular rate -Regular rhythm -No murmurs -No gallops -No rubs Lungs: -No wheeze -No rhonchi -No rales ? Abdomen: -Normal bowel sounds in all four quadrants -No rebound -No guarding -No tenderness Extremities: -2/4 pulse in all four extremities -No clubbing -No cyanosis -No edema -No calf tenderness present bilaterally -Negative Luzma?s sign bilaterally Musculoskeletal: -5/5 bilateral upper extremity strength -5/5 bilateral lower extremity strength -Sensorium of bilateral upper extremities are equal and intact -Sensorium of bilateral lower extremities are equal and intact ? Additional Details / Additional Findings / Exceptions / Miscellaneous: Data : 11/30/21 17:27 11/30/21 17:27 Micro: Microbiology 11/30/21 20:09 Blood Culture - Preliminary Blood SPECIMEN COLLECTED 11/30/21 17:27 Blood Culture - Preliminary Blood SPECIMEN COLLECTED A&P Assessment and plan (1) Somnolence: Status: Acute Plan Encephalopathy. This may be secondary to urinary tract infection however given the patient's presentation I feel is likely due to opiate overuse/overdose. Will monitor patient on telemetry and checks her cardiac enzymes. Neuro checks every 4 hours. Patient received Narcan 0.4 mg IV ?1 at approximately 1 AM on December 01, 2021. Patient will require referral for drug rehabilitation Acute renal insufficiency. Will monitor creatinine intermittently History of recurrent falls. Fibromyalgia Rheumatoid arthritis Atrial fibrillation. Patient presented to the emergency department with rapid ventricular response apparently due to medical noncompliance. Monitor patient on telemetry and checks her cardiac enzymes. IV Cardizem drip per protocol Urinary tract infection. Rocephin 1 g IV daily Elevated troponin, chronic. Will monitor patient on telemetry and checks her cardiac enzymes. Recheck EKG on the morning of December 01, 2021 Macrocytosis. Check TSH, free T4, B12, folate level Hypothyroidism. TSH, free T4 pending Depression Constipation COPD, O2 dependent at 2 L CHF, last echocardiogram demonstrated preserved ejection fraction with grade 1 diastolic dysfunction Coronary artery disease Diabetes. Will check fingerstick glucose before meals and at bedtime and pro vide insulin sliding scale Hyperlipidemia Hypertension. IV Cardizem drip per protocol Obesity. The patient becomes regarding lifestyle modification Chronic pain with opiate dependence/abuse. Patient will need referral for drug rehabilitation upon discharge Oma arthritis Anxiety PTSD History of left renal mass. Outpatient monitoring with her primary care physician Documented history of lung nodule. Outpatient monitoring with her primary care physician Nephrolithiasis, asymptomatic Query cirrhosis Left breast mass. Outpatient follow-up with her primary care physician and/or o bstetrics/gynecology Degenerative joint disease Diabetic gastroparesis Medical noncompliance. The patient will be counseled regarding medical compliance DVT prophylaxis. Bilateral SCD Attestations Medical Necessity Statement*: The patient's length of hospitalization is anticipated to be less than 48 hours for encephalopathy Coding Level of Care Code Acute Stripping And Booking Machine Operator for Chg Fwd Diagnoses Somnolence R40.0
[2021-12-01 00:45] LABS: Creatine Phosphokinase 35 U/L (26-192)
[2021-12-01] MEDS: naloxone 2 MG in sodium chloride 0.9% (100 ml) 100 ML 20.4 MG IV (00:57)
[2021-12-01] MEDS: cefTRIAXone 1,000 MG in sodium chloride 0.9% (plus) 50 ML 100 MG IV (02:48)
[2021-12-01 02:57] LABS: Glucose Point of Care 222 mg/dL (70-110)
[2021-12-01 03:12] LABS: INR 1.01 (0.8-1.2)
[2021-12-01 03:21] LABS: Ammonia 41 umol/L (11-51)
[2021-12-01 03:46] LABS: Thyroid Stimulating Hormone 1.32 uIU/mL (0.27-4.20)
--- NOTE | 2021-12-01 04:11 | ECG_ITS ---
[facility] Test Date: 2021-12-01 Pat Name: Myesha Parker Department: Room: 108 Gender: Female Top Edge Beveler: : 1950 Requested By: Jesus Diaz Order Number: [id number] Wilbur MD: Min Tipton M.D. Measurements Intervals [place] Rate: 138 P: 62 [place]: 190 QRS: -87 QRSD: 165 T: 36 QT: 341 QTc: 517 Interpretive Statements SINUS TACHYCARDIA WITH OCCASIONAL VENTRICULAR PREMATURE COMPLEXES RIGHT BUNDLE BRANCH BLOCK [120+ ms QRS DURATION, UPRIGHT V1, 40+ ms S IN I/aVL/V4/V5/V6] LEFT ANTERIOR FASCICULAR BLOCK [QRS AXIS <= -45, QR IN I, RS IN II] POSSIBLE LEFT VENTRICULAR HYPERTROPHY [VOLTAGE CRITERIA PLUS LAE OR QRS WIDENING] POSSIBLE SEPTAL MYOCARDIAL INFARCTION , OF INDETERMINATE AGE [30 ms Q WAVE IN V1/V2] Compared to ECG 12/01/2021 01:06:13 Atrial fibrillation no longer present Aberrant conduction of supraventricular beat(s) no longer present Myocardial infarct finding still present Electronically Signed On 12-01-2021 16:10:43 CDT by Min Tipton M.D. [id number]
[2021-12-01 04:18] LABS: Folate Level 17.7 ng/mL (4.8-37.3)
[2021-12-01 04:33] LABS: Vitamin B12 > 2000 pg/mL (232-1245)
[2021-12-01 04:53] LABS: Free T4 Free Thyroxine 1.36 ng/dL (0.82-1.77)
[2021-12-01] MEDS: metoprolol tartrate 1 mg/1 mL SDV 5 mL 10 MG IVP (05:26)
[2021-12-01] MEDS: sodium chloride 0.9% 1,000 ML 75 ML IV ×2 (05:29→18:18)
[2021-12-01 06:51] LABS: Glucose Point of Care 200 mg/dL (70-110)
--- NOTE | 2021-12-01 09:37 | PC.PHAR ---
PT UNABLE TO VERIFY- PT VERIFIED
--- NOTE | 2021-12-01 10:13 | PC.CHAP ---
Pastoral Care Encounter/Spiritual Assessment Type of Contact [x] Declined flagsetter visit [] Patient/Family/Request visit [] Outpatient visit [] Follow-up visit [] Physician referral [] Code/Alert [] Routine visit [] Staff referral [] Actively dying [] Patient sleeping [] Family support [] [] Out of room [] Palliative care [] [] Receiving care in room [] Pre-surgical visit [] Trauma [] Long length of stay [] ICU visit [] Other: Relational/Emotional Strength [] Patient feels connected with others/family/visitors/staff [] Distress [] Loneliness/isolation [] Abandonment Spirituality of Patient [] Person of Joelle [] Attends Mormonism of their Joelle [] Believes in Prayer [] Reads Bible or Restorationism materials [] There are Spiritual issues to be addressed Wafer Polishing Lead Worker Interventions [] Prayer [] Active listening [] Non-anxious presence [] Spiritual/emotional support [] Crisis/trauma care [] Spiritual counseling [] Bereavement support [] Provided bereavement packet [] Provided Bible/devotional materials [] Provided toy/stuffed animal, coloring book to patient or family member [] Provided Communion [] Anointing/[place] [] Salvation [] Completed spiritual assessment [] Other: Impact on Illness or Injury [] Angry [] Fearful [] Anxious [] Often cries [] Exhaustion [] Unable to work [] Unable to attend jain [] Unable to walk/stand [] Unable to read [] Unable to drive [] Unable to eat/drink [] Unable to sleep [] Unable to be with family [] Patient intubated [] Other: Summary Declined flagsetter visit Time spent with patient 5 mins
[2021-12-01 11:04] LABS: Glucose Point of Care 196 mg/dL (70-110)
[2021-12-01 17:10] LABS: Glucose Point of Care 281 mg/dL (70-110)
[2021-12-01] MEDS: insulin lispro 100 unit/1 mL SUBCUT ×2 (18:16→20:30)
[2021-12-01 20:27] LABS: Glucose Point of Care 263 mg/dL (70-110)
[2021-12-01] MEDS: metoprolol tartrate 1 mg/1 mL SDV 5 mL 5 MG IVP (20:29)
[2021-12-02] VITALS (10 sets, daily range): BP systolic 142–187; BP diastolic 79–110; PULSE 91–127; RESP 17–21; TEMP 36.4–36.8; O2SAT 93–97
[2021-12-02] MEDS: cefTRIAXone 1,000 MG in sodium chloride 0.9% (plus) 50 ML 100 MG IV (00:09)
[2021-12-02] MEDS: metoprolol tartrate 1 mg/1 mL SDV 5 mL 5 MG IVP ×2 (06:19→13:26)
[2021-12-02 06:30] LABS: Glucose Point of Care 199 mg/dL (70-110)
[2021-12-02] MEDS: sodium chloride 0.9% 1,000 ML 75 ML IV (06:40)
[2021-12-02] MEDS: insulin lispro 100 unit/1 mL SUBCUT ×4 (08:36→19:38)
[2021-12-02 10:04] LABS: Basophils % 0.8 %; Eosinophils # 0.1 10^3/uL (0.0-0.8); Hematocrit 29.7 % (37.0-47.0); Lymphocytes % 20.9 %; Mean Corpuscular HGB Conc 33.7 g/dL (30.0-36.0); Mean Corpuscular Hemoglobin 34.8 pg (28.0-34.0); Mean Corpuscular Volume 103.5 fl (81-99); Mean Platelet Volume 10.1 fL (7.4-10.4); Monocytes # 0.6 10^3/uL (0.2-0.9); Monocytes % 11.8 %; Neutrophils # 3.15 10^3/uL (1.8-7.7); Neutrophils % 63.9 %; Nucleated Red Blood Cells % 0 %; Platelet Count 148 10^3/cmm (130-400); Red Blood Count 2.87 10^6/uL (4.1-5.3); Red Cell Distribution Width 13.5 % (12.1-15.1); White Blood Count 4.9 10^3/uL (4.0-10.0)
[2021-12-02] MEDS: dilTIAZem ER (24HR) 180 mg Capsule PO (10:07)
[2021-12-02] MEDS: digoxin 125 mcg Tablet PO (10:07)
[2021-12-02] MEDS: hyDRALAzine 10 mg Tablet PO ×3 (10:08→19:38)
[2021-12-02 10:22] LABS: Anion Gap 13.6 (5-19); Blood Urea Nitrogen 24 mg/dL (8-23); Calcium 9.5 mg/dL (8.5-10.5); Carbon Dioxide 32 mmol/L (22-29); Chloride 95 mmol/L (98-107); Glucose 306 mg/dL (65-115); Osmolality Calculated 300 mOsm/kg (285-295); Potassium 3.6 mmol/L (3.5-5.1); Sodium 137 mmol/L (136-145)
--- NOTE | 2021-12-02 10:27 | PM.PN ---
Subjective Subjective: Patient was seen and examined this morning, currently alert awake oriented x3, Heart rate is uncontrolled today in the morning ranging from 115-130, she has received 60 mg p.o. Cardizem extra dose today, as well as 5 mg IV metoprolol one-time dose. serum creatinine has improved since yesterday BUN has also trended down with IV hydration. Medications: Medication Review Details: Generic Name Dose Route Start Last Admin Trade Name Freq PRN Reason Stop Dose Admin Digoxin 0 mcg 12/02/21 10:00 12/02/21 10:07 Digoxin 125 Mcg Tablet PO 125 mcg DAILY JOCE Administration Diltiazem HCl 180 mg 12/02/21 09:05 12/02/21 10:07 Diltiazem Er (24 hr) 180 Mg Capsule PO 180 mg DAILY JOCE Administration Diltiazem HCl 60 mg 12/02/21 14:30 12/02/21 14:53 Diltiazem 60 Mg Tablet PO 60 mg NOW JOCE Administration Hydralazine HCl 10 mg 12/02/21 09:05 12/02/21 14:53 Hydralazine 10 M g Tablet PO 10 mg TID JOCE Administration Ceftriaxone Sodium 1,000 mg/ 50 mls @ 100 mls/ hr 12/01/21 01:00 12/02/21 00:39 Sodium Chloride IV Infused Q24H JOCE Infusion Protocol Insulin Human Lisp ro 0 unit 12/01/21 08:00 12/02/21 12:14 Insulin Lispro 1 00 Unit/1 Ml SUBCUT 6 unit WM&BEDTIME JOCE Administration Protocol Metoprolol Tartrat e 5 mg 12/01/21 11:38 12/02/21 13:26 Metoprolol Tartr ate 1 Mg/1 Ml Sdv 5 Ml IVP 5 mg Q4H PRN Administration HR >100 Vitals/I&O/Wt Last Vital Signs Temp 97.9 F 12/02/21 07:24 Pulse 119 H 12/02/21 10:07 Resp 21 H 12/02/21 07:24 BP 166/110 12/02/21 07:24 Pulse Ox 97 12/02/21 07:24 12/01/21 12/02/21 12/02/21 22:59 06:59 14:59 Intake Total 1201.25 / 1309.00 1377.5 / 2686.50 Output Total 375 / 375 1500 / 1875 1000 / 1000 Balance 826.25 / 934.00 -122.5 / 811.50 -1000 / -1000 Weight last 48 hrs Weight 99.337 kg Physical Exam Const: COMMON NORMALS: patient oriented x3 HENMT: COMMON NORMALS: normocephalic and atraumatic HEAD & SCALP: normocephalic and atraumatic Chest: CHEST: Yes Symmetrical chest wall rise Resp: COMMON NORMALS: normal respiratory effort, No retractions, No use of accessory muscles and clear to auscultation bilaterally EFFORT & INSPECTION: Yes symmetric chest movement AUSCULTATION: clear to auscultation bilaterally Cardio: COMMON NORMALS: regular rate, regular rhythm, S1 normal heart sound present, S2 normal heart sound present, No gallops present (Cardio), No murmurs present (Cardio), No rub (Cardio) and Peripheral pulses 2+ throughout RATE: regular rate RHYTHM: regular rhythm HEART SOUNDS: S1 normal heart sound present and S2 normal heart sound present PERIPHERAL PULSES: Peripheral pulses 2+ throughout GI: COMMON NORMALS: Normal to inspection, nondistended, normoactive bowel sounds present, Soft to palpation, non-tender, No hepatosplenomegaly present and no masses AUSCULTATION: Yes normoactive bowel sounds PALPATION: Yes Soft to palpation and Yes No hepatosplenomegaly present RECTAL EXAM: deferred Extremity: COMMON NORMALS: no clubbing, cyanosis or edema and no pedal edema Neuro: COMMON NORMALS: patient oriented x3 Data : 12/02/21 09:45 12/02/21 09:45 Micro: Microbiology 11/30/21 22:30 Urine Culture - Preliminary Urine,Clean Catch Gram Negative Rods 11/30/21 20:09 Blood Culture - Preliminary Blood NEGATIVE TO DATE 11/30/21 17:27 Blood Culture - Preliminary Blood NEGATIVE TO DATE A&P Assessment and plan (1) Somnolence: Status: Acute Plan 71-year-old female with past medical history of HFpEF, coronary artery disease hypertension diabetes dyslipidemia, COPD ,atrial fibrillation , hypothyroidism was initially brought in for management of altered mental status. Acute metabolic encephalopathy: Likely secondary to UTI, on admission opiate overuse/overdose Was suspected, received Narcan one-time dose C.T. Without contrast: No acute intracranial pathology, ABG on admission: pH 7.48 PCO2 48 PO2 143, at 3 L Urinalysis dirty Urine culture gram-negative rods Currently on ceftriaxone #A. fib with RVR: Initially she was on Cardizem drip, currently she has been switched to Cardizem CD 180 p.o. daily, digoxin, as well as metoprolol tartrate 100 mg p.o. twice daily Patient is not on anticoagulation at home. Likely secondary to history of recurrent fall. Continue telemetry monitoring #CKD stage III: Currently serum creatinine is baseline Continue to monitor BMP Intake output charting Avoid nephrotoxic's #HFpEF: Currently compensated K>4, MG>2 Intake output charting Daily weight #Chronically elevated troponin: No acute ST-T wave changes No acute intervention for now #Hypothyroidism: TSH : 1.32 Continue levothyroxine 150 MCG PO daily #Diabetes: SSI FSG Carbohydrate consistent diet # Fibromyalgia # Rheumatoid arthritis Hypertension. IV Cardizem drip per protocol Obesity. The patient becomes regarding lifestyle modification Chronic pain with opiate dependence/abuse. Patient will need referral for drug rehabilitation upon discharge Oma arthritis Anxiety PTSD History of left renal mass. Outpatient monitoring with her primary care physician Documented history of lung nodule. Outpatient monitoring with her primary care physician Nephrolithiasis, asymptomatic Query cirrhosis Left breast mass. Outpatient follow-up with her primary care physician and/or obstetrics/gynecology Degenerative joint disease Diabetic gastroparesis Medical noncompliance. The patient will be counseled regarding medical compliance DVT prophylaxis. Bilateral SCD Attestations Medical Necessity Statement*: Patient is to be in hospital for management of A. fib with RVR. Coding Level of Care Code Acute Canal Lock Tender Chief Operator for g Fwd Exam Detailed Diagnoses Somnolence R40.0
--- NOTE | 2021-12-02 10:38 | PC.CHAP ---
Pastoral Care Encounter/Spiritual Assessment Type of Contact [] Declined theatrical rigger visit [] Patient/Family/Request visit [] Outpatient visit [] Follow-up visit [] Physician referral [] Code/Alert [x] Routine visit [] Staff referral [] Actively dying [x] Patient sleeping [] Family support [] [] Out of room [] Palliative care [] [] Receiving care in room [] Pre-surgical visit [] Trauma [] Long length of stay [] ICU visit [] Other: Relational/Emotional Strength [] Patient feels connected with others/family/visitors/staff [] Distress [] Loneliness/isolation [] Abandonment Spirituality of Patient [] Person of Joelle [] Attends Tenriism of their Joelle [] Believes in Prayer [] Reads Bible or Yarsani materials [] There are Spiritual issues to be addressed Epilepsy Physician Interventions [x] Prayer [] Active listening [] Non-anxious presence [] Spiritual/emotional support [] Crisis/trauma care [] Spiritual counseling [] Bereavement support [] Provided bereavement packet [] Provided Bible/devotional materials [] Provided toy/stuffed animal, coloring book to patient or family member [] Provided Communion [] Anointing/[place] [] Salvation [x] Completed spiritual assessment [] Other: Impact on Illness or Injury [] Angry [] Fearful [] Anxious [] Often cries [] Exhaustion [] Unable to work [] Unable to attend quaker [] Unable to walk/stand [] Unable to read [] Unable to drive [] Unable to eat/drink [] Unable to sleep [] Unable to be with family [] Patient intubated [] Other: Summary Time spent with patient
[2021-12-02 11:47] LABS: Glucose Point of Care 229 mg/dL (70-110)
[2021-12-02] MEDS: dilTIAZem 60 mg Tablet PO (14:53)
[2021-12-02 16:33] LABS: Glucose Point of Care 218 mg/dL (70-110)
[2021-12-02] MEDS: pantoprazole DR 40 mg Tablet PO (17:23)
[2021-12-02] MEDS: magnesium lactate 84 mg Tablet PO (17:23)
--- NOTE | 2021-12-02 18:50 | PC.NURSE ---
Received report from TAYO Marx. Patient resting in bed. Patient has romero catheter in place with clear, yellow urine noted. Patient denies pain at this time. Discussed plan for the night. Instructed metoprolol for heart rate control. Patient verbalized understanding. No other distresses observed. Will continue to monitor.
[2021-12-02 19:34] LABS: Glucose Point of Care 262 mg/dL (70-110)
[2021-12-02] MEDS: atorvastatin 40 mg Tablet 80 MG PO (19:38)
[2021-12-02] MEDS: metoprolol tartrate 50 mg Tablet 100 MG PO (19:38)
[2021-12-03] VITALS (10 sets, daily range): BP systolic 152–156; BP diastolic 84–101; PULSE 54–132; RESP 16–21; TEMP 36.8; O2SAT 95–99
[2021-12-03] MEDS: cefTRIAXone 1,000 MG in sodium chloride 0.9% (plus) 50 ML 100 MG IV (00:52)
[2021-12-03] MEDS: levothyroxine 150 mcg Tablet PO (04:47)
[2021-12-03 05:17] LABS: Basophils # 0.1 10^3/uL (0.0-0.1); Basophils % 1.1 %; Eosinophils # 0.1 10^3/uL (0.0-0.8); Eosinophils % 2.1 %; Hematocrit 29.4 % (37.0-47.0); Hemoglobin 9.9 g/dL (11.5-15.3); Lymphocytes # 1.1 10^3/uL (0.8-4.8); Lymphocytes % 20.8 %; Mean Corpuscular HGB Conc 33.7 g/dL (30.0-36.0); Mean Corpuscular Hemoglobin 34.6 pg (28.0-34.0); Mean Corpuscular Volume 102.8 fl (81-99); Mean Platelet Volume 10.1 fL (7.4-10.4); Monocytes # 0.6 10^3/uL (0.2-0.9); Monocytes % 11.9 %; Neutrophils # 3.34 10^3/uL (1.8-7.7); Neutrophils % 63.3 %; Nucleated Red Blood Cells % 0 %; Platelet Count 155 10^3/cmm (130-400); Red Blood Count 2.86 10^6/uL (4.1-5.3); Red Cell Distribution Width 13.2 % (12.1-15.1); White Blood Count 5.3 10^3/uL (4.0-10.0)
[2021-12-03 05:37] LABS: Anion Gap 11.8 (5-19); Blood Urea Nitrogen 19 mg/dL (8-23); Carbon Dioxide 31 mmol/L (22-29); Chloride 97 mmol/L (98-107); Glucose 241 mg/dL (65-115); Osmolality Calculated 292 mOsm/kg (285-295); Potassium 3.8 mmol/L (3.5-5.1); Sodium 136 mmol/L (136-145)
[2021-12-03] MEDS: metoprolol tartrate 1 mg/1 mL SDV 5 mL 5 MG IVP (06:19)
[2021-12-03 06:24] LABS: Glucose Point of Care 279 mg/dL (70-110)
--- NOTE | 2021-12-03 06:25 | PC.NURSE ---
Patient heart rate up to 130s sustained. Metoprolol IVP administered as ordered for heart >100. Patient's heart rate controlled 80s to mid 90s overnight.
[2021-12-03] MEDS: magnesium lactate 84 mg Tablet PO (07:42)
[2021-12-03] MEDS: pantoprazole DR 40 mg Tablet PO (07:43)
[2021-12-03] MEDS: metoprolol tartrate 50 mg Tablet 100 MG PO (07:43)
[2021-12-03] MEDS: hyDRALAzine 10 mg Tablet PO (07:43)
[2021-12-03] MEDS: dilTIAZem ER (24HR) 180 mg Capsule PO (07:43)
[2021-12-03] MEDS: insulin lispro 100 unit/1 mL SUBCUT ×2 (07:44→12:21)
--- NOTE | 2021-12-03 09:09 | PC.NURSE ---
Physician Order Remove romero catheter
--- NOTE | 2021-12-03 10:04 | ECG_ITS ---
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 Measurements Intervals [place] Rate: 64 P: NE: QRS: -75 QRSD: 166 T: 93 QT: 481 QTc: 497 Interpretive Statements Atrial fibrillation with a controlled ventricular response rate. Frequent PVCs LEFT AXIS DEVIATION [QRS AXIS < -30] RIGHT BUNDLE BRANCH BLOCK [120+ ms QRS DURATION, UPRIGHT V1, 40+ ms S IN I/aVL/V4/V5/V6] POSSIBLE LEFT VENTRICULAR HYPERTROPHY [VOLTAGE CRITERIA PLUS LAE OR QRS WIDENING]. POSSIBLE SEPTAL MYOCARDIAL INFARCTION , OF INDETERMINATE AGE [30 ms Q WAVE IN V1/V2].MODERATE T-WAVE ABNORMALITY, CONSIDER LATERAL ISCHEMIA [-0.1+ mV T-WAVE IN I/aVL/V5/V6] CRITICAL TEST RESULT Compared to ECG 12/01/2021 04:28:54 Left-axis deviation now present.T-wave abnormality now present Possible ischemia now present.Sinus tachycardia no longer present Ventricular premature complex(es) no longer present.Left anterior fascicular block no longer present.Myocardial infarct finding still present Electronically Signed On 12-03-2021 19:09:40 CDT by Keisha Coronel M.D. [id number]
--- NOTE | 2021-12-03 11:18 | PC.NURSE ---
Notified physician Patient heart rate consistently dropping below 60bpm. Orders to hold 9am dose of digoxin.
--- NOTE | 2021-12-03 11:26 | P.DS_ITS ---
Discharge Providers Date of Admission: 12/02/21 16:15 Date of Discharge: December 03, 2021 Attending Provider at Admission: Jesus Diaz DO Attending Provider at Discharge: Enrique Dong MD Primary Care Provider: Davion Girggs MD Diagnoses at Discharge Discharge Diagnosis (1) Somnolence: Status: Acute Reason for Visit Reason for Visit: AMS Hospital Course Hospital Course 71-year-old female with past medical history of HFpEF, coronary artery disease hypertension diabetes dyslipidemia, COPD ,atrial fibrillation , hypothyroidism was initially brought in for management of altered mental status.She was admitted for the management of acute metabolic encephalopathy secondary to UTI Less likely opioid overdose, urine culture has grown Klebsiella pneumonia sensitive to levofloxacin, She was on IV Rocephin during the hospital stay, has been discharged on p.o. levofloxacin for additional 3 days, during the hospital stay she was also managed for A. fib with RVR she was placed on Cardizem drip Later her home medications which includes Cardizem digoxin and metoprolol was restarted, at times the heart rate drops into mid 40s, the dose of metoprolol has been decreased to 50 twice daily. He has been asked to hold Cardizem digoxin as well as metoprolol if the heart rate persistently remains in 50s and call cardiology office for further instructions. She has been asked to follow with Shannan White as an outpatient in 1 week. At the time of discharge she was alert awake oriented x3, hemodynamically stable She is being discharged home with home health. Physical Exam Const: COMMON NORMALS: patient oriented x3 HENMT: COMMON NORMALS: normocephalic and atraumatic HEAD & SCALP: normocephalic and atraumatic Chest: CHEST: Yes Symmetrical chest wall rise Resp: COMMON NORMALS: normal respiratory effort, No retractions, No use of accessory muscles and clear to auscultation bilaterally EFFORT & INSPECTION: Yes symmetric chest movement AUSCULTATION: clear to auscultation bilaterally Cardio: COMMON NORMALS: regular rate, regular rhythm, S1 normal heart sound present, S2 normal heart sound present, No gallops present (Cardio), No murmurs present (Cardio), No rub (Cardio) and Peripheral pulses 2+ throughout RATE: regular rate RHYTHM: regular rhythm HEART SOUNDS: S1 normal heart sound present and S2 normal heart sound present PERIPHERAL PULSES: Peripheral pulses 2+ throughout GI: COMMON NORMALS: Normal to inspection, nondistended, normoactive bowel sounds present, Soft to palpation, non-tender, No hepatosplenomegaly present and no masses AUSCULTATION: Yes normoactive bowel sounds PALPATION: Yes Soft to palpation and Yes No hepatosplenomegaly present RECTAL EXAM: deferred Extremity: COMMON NORMALS: no clubbing, cyanosis or edema and no pedal edema Neuro: COMMON NORMALS: patient oriented x3 Urinary Catheter Management: Manzanares: Cath Placed During This Visit: yes, but has since been removed by the nurse Reason for Continuing Indwelling Catheter: Other Date Urinary Catheter Removed: 12/03/21 Time Urinary Catheter Discontinued: 09:30 Discharge Data Studies Completed and Pending Completed Studies During Hospitalization Category Date Time Status CT head wo con* [id number] Urgent Cat Scan 11/30/21 17:09 Completed XR chest 1V portable [id number] Urgent Exams 11/30/21 17:03 Completed Pending at discharge Category Date Time Status BMP [Basic Metabolic Panel] AM LABS Lab 12/04/21 04:00 Ordered BMP [Basic Metabolic Panel] AM LABS Lab 12/05/21 04:00 Ordered Blood Culture Stat Lab 11/30/21 20:09 Results CBC Auto Diff [Complete Blood Count w/Auto] AM LABS Lab 12/04/21 04:00 Ordered CBC Auto Diff [Complete Blood Count w/Auto] AM LABS Lab 12/05/21 04:00 Ordered Radiology Impressions Chest X-Ray 11/30/21 17:03 IMPRESSION: Cardiomegaly without pulmonary edema. Head CT 11/30/21 17:09 IMPRESSION: 1. No acute intracranial abnormality. Laboratory Results WBC 5.3 10^3/uL (4.0-10.0) 12/03/21 04:39 RBC 2.86 10^6/uL (4.1-5.3) L 12/03/21 04:39 Hgb 9.9 g/dL (11.5-15.3) L 12/03/21 04:39 Hct 29.4 % (37.0-47.0) L 12/03/21 04:39 MCV 102.8 fl (81-99) H 12/03/21 04:39 MCH 34.6 pg (28.0-34.0) H 12/03/21 04:39 MCHC 33.7 g/dL (30.0-36.0) 12/03/21 04:39 RDW 13.2 % (12.1-15.1) 12/03/21 04:39 Plt Count 155 10^3/cmm (130-400) 12/03/21 04:39 MPV 10.1 fL (7.4-10.4) 12/03/21 04:39 Neut % (Auto) 63.3 % 12/03/21 04:39 Lymph % (Auto) 20.8 % 12/03/21 04:39 [place] % (Auto) 11.9 % 12/03/21 04:39 Eos % (Auto) 2.1 % 12/03/21 04:39 Baso % (Auto) 1.1 % 12/03/21 04:39 Neut # (Auto) 3.34 10^3/uL (1.8-7.7) 12/03/21 04:39 Lymph # (Auto) 1.1 10^3/uL (0.8-4.8) 12/03/21 04:39 [place] # (Auto) 0.6 10^3/uL (0.2-0.9) 12/03/21 04:39 Eos # (Auto) 0.1 10^3/uL (0.0-0.8) 12/03/21 04:39 Baso # (Auto) 0.1 10^3/uL (0.0-0.1) 12/03/21 04:39 Nucleated RBC % (auto) 0 % 12/03/21 04:39 Nucleated RBCs # 0.0 /100WBC 12/03/21 04:39 PT 13.60 SECONDS (12.1-14.9) 11/30/21 02:10 INR 1.01 (0.8-1.2) 11/30/21 02:10 Specimen Type Arterial 11/30/21 17:24 Sample Site Radial, left 11/30/21 17:24 ABG pH 7.48 (7.35-7.45) H 11/30/21 17:24 ABG pCO2 48.9 mmHg (35-45) H 11/30/21 17:24 ABG pO2 143.0 mmHg (80.0-100.0) H 11/30/21 17:24 ABG HCO3 36.4 mmol/L (22-26) H 11/30/21 17:24 ABG Base Excess 11.3 mmol/L (-2.0-2.0) H 11/30/21 17:24 Memo Test Pos 11/30/21 17:24 Hematocrit 36.6 % (37-47) L 11/30/21 17:24 O2 Delivery Device Nc 11/30/21 17:24 O2 Liters/Min 3.0 % 11/30/21 17:24 FiO2 32.0 % 11/30/21 17:24 Bulk Cooler Installer ID Cak 11/30/21 17:24 Sodium 136 mmol/L (136-145) 12/03/21 04:39 Potassium 3.8 mmol/L (3.5-5.1) 12/03/21 04:39 Chloride 97 mmol/L (98-107) L 12/03/21 04:39 Carbon Dioxide 31 mmol/L (22-29) H 12/03/21 04:39 Anion Gap 11.8 (5-19) 12/03/21 04:39 BUN 19 mg/dL (8-23) 12/03/21 04:39 Creatinine 0.9 mg/dL (0.5-0.9) 12/03/21 04:39 GFR Calculation Not Reportable 12/03/21 04:39 Glucose 241 mg/dL (65-115) H 12/03/21 04:39 POC Glucose 279 mg/dL (70-110) H 12/03/21 06:18 Calculated Osmolality 292 mOsm/kg (285-295) 12/03/21 04:39 Calcium 10.0 mg/dL (8.5-10.5) 12/03/21 04:39 Total Bilirubin 0.5 mg/dL (0.15-1.2) 11/30/21 17:27 AST 30 U/L (0-32) 11/30/21 17:27 ALT 24 U/L (0-33) 11/30/21 17:27 Alkaline Phosphatase 89 IU/L (35-105) 11/30/21 17:27 Ammonia 41 umol/L (11-51) 11/30/21 02:10 Creatine Kinase 35 U/L (26-192) 11/30/21 17:27 Troponin T Baseline 36 ng/L (0-10) H 11/30/21 17:27 Troponin T 120 Minute 34.86 ng/L (0-10) H 11/30/21 20:09 Delta Troponin T -1.14 ABS# (0-10) L 11/30/21 20:09 Troponin T Hi Sens 6Hr 28.49 ng/L (0-10) H 11/30/21 23:13 Troponin T Hi Sens 6Hr Delta -7.51 ng/L (0-12) L 11/30/21 23:13 NT-Pro-B Natriuret Pep 2319 pg/mL (0-125) H 11/30/21 17:27 Total Protein 7.2 g/dL (6.6-8.7) 11/30/21 17:27 Albumin 3.9 g/dL (3.5-5.2) 11/30/21 17:27 Globulin 3.3 g/dL (1.3-4.6) 11/30/21 17:27 Vitamin B12 > 2000 pg/mL (232-1245) H 12/01/21 02:10 Folate 17.7 ng/mL (4.8-37.3) 12/01/21 02:10 TSH 1.32 uIU/mL (0.27-4.20) 12/01/21 02:10 Free T4 1.36 ng/dL (0.82-1.77) 12/01/21 02:10 Urine Color Yellow (Yellow) 11/30/21 22:30 Urine Appearance Cloudy (CLEAR) 11/30/21 22:30 Urine pH 5 (5-7) 11/30/21 22:30 Ur Specific Perry 1.025 (1.005-1.030) 11/30/21 22:30 Urine Protein 3+ (Negative) H 11/30/21 22:30 Urine Glucose (UA) Norm (Normal) 11/30/21 22:30 Urine Ketones Negative (Negative) 11/30/21 22:30 Urine Blood 3+ (Negative) H 11/30/21 22:30 Urine Nitrate Negative (Negative) 11/30/21 22:30 Urine Bilirubin Neg (Negative) 11/30/21 22:30 Urine Urobilinogen Norm mg/dL (Negative) 11/30/21 22:30 Ur Leukocyte Esterase 2+ (Negative) H 11/30/21 22:30 Urine RBC 5-10 /hpf (0-2) H 11/30/21 22:30 Urine WBC Too numerous to cnt /hpf (0-5) H 11/30/21 22:30 Ur Squamous Epith Cells 0-4 /hpf (0-5) H 11/30/21 22:30 Amorphous Sediment Not Reportable 11/30/21 22:30 Urine Bacteria 3+ /hpf (NONE) H 11/30/21 22:30 Urine Mucus Trace /hpf 11/30/21 22:30 Digoxin 0.8 ng/mL (0.6-1.2) 11/30/21 17:27 Vitals Last Vital Signs Temp 98.3 F 12/03/21 07:32 Pulse 54 L 12/03/21 11:17 Resp 16 12/03/21 09:17 BP 154/84 12/03/21 07:32 Pulse Ox 97 12/03/21 09:18 Discharge Plan Discharge Patient Disposition: Home Condition: Stable Prescriptions: New levofloxacin 500 mg tablet 500 mg PO DAILY 3 Days Qty: 3 0RF metoprolol tartrate 50 mg tablet 50 mg PO BID Qty: 60 3RF Continued Humira Pen 40 mg/0.8 mL pen injector kit 40 mg SUBCUT Q14D Qty: 2 3RF Hold Instructions: Resume on 08/02/21. Rx Instructions: TAKES ON SATURDAYS EVERY 14 DAYS methotrexate sodium 2.5 mg tablet 7.5 mg PO Q7D Qty: 15 3RF Rx Instructions: ON SATURDAYS duloxetine 60 mg capsule,delayed release(DR/EC) 60 mg PO DAILY@08 Qty: 90 0RF folic acid 1 mg tablet 1 mg PO DAILY@08 Qty: 90 1RF nitroglycerin [Nitrostat] 0.4 mg tablet, sublingual 0.4 mg SUBLINGUAL Q5M PRN (Reason: Chest Pain) Qty: 30 3RF Rx Instructions: MAX 3 DOSES PER EPISODE hydrocodone-acetaminophen 7.5-325 mg tablet 1 tab PO TID PRN (Reason: pain) 30 Days Qty: 90 0RF levothyroxine [Euthyrox] 150 mcg tablet 150 mcg PO QAM 0RF calcium carbonate [Calcium 600] 600 mg calcium (1,500 mg) tablet 600 mg PO DAILY 0RF methylsulfonylmethane [MSM] 1,000 mg tablet 1,000 mg PO BID 0RF digoxin 125 mcg (0.125 mg) tablet 125 mcg PO DIRECTED Qty: 75 3RF Rx Instructions: Alternate 1/2 Tab daily, next day 1 tab acetaminophen [Arthritis Pain Reliever] 650 mg Tablet Extended Release 650 mg PO Q4H PRN (Reason: Pain) 0RF cholecalciferol (vitamin D3) [Vitamin D3] 25 mcg (1,000 unit) Tablet 2,000 unit PO DAILY@08 0RF albuterol sulfate 2.5 mg /3 mL (0.083 %) Solution For Nebulization 2.5 mg inhalation TID PRN (Reason: Shortness Of Breath) 0RF Novolin 70/30 U-100 Insulin 100 unit/mL (70-30) suspension See Rx Instructions .ROUTE .COMPLEX 0RF Rx Instructions: 55 units subcutaneously qam and 35 units qpm albuterol sulfate 90 mcg/actuation Hfa Aerosol Inhaler 2 puff INHALATION Q6H PRN (Reason: Shortness Of Breath) 0RF docusate sodium [Stool Softener] 250 mg Capsule 250 mg PO BID 0RF cyanocobalamin (vitamin B-12) [Vitamin B-12] 500 mcg Tablet 500 mcg PO DAILY 0RF chlorpheniramine maleate [ChlorTabs] 4 mg Tablet See Rx Instructions .ROUTE .COMPLEX 0RF Rx Instructions: 4 mg orally TID THEN ALTERNATES WITH BENADRYL THEN NEXT DAY diphenhydramine HCl [Benadryl] 25 mg Capsule See Rx Instructions .ROUTE .COMPLEX 0RF Rx Instructions: 25MG PO TID THEN ALTERNATES WITH CHLORTAB THE NEXT DAY atorvastatin 80 mg tablet 80 mg PO BEDTIME 0RF lisinopril 40 mg tablet 40 mg PO QPM 0RF Hold Instructions: Resume on 12/01/21. ferrous gluconate 324 mg (37.5 mg iron) tablet See Rx Instructions .ROUTE .COMPLEX 0RF Rx Instructions: ALTERNATE 1 TABLET DAILY WITH 2 TABLETS DAILY magnesium L-lactate 84 mg tablet extended release 84 mg PO BID 0RF ferrous sulfate [FeroSul] 325 mg (65 mg iron) tablet See Rx Instructions .ROUTE .COMPLEX 0RF Rx Instructions: 325mg po on sun,mon,wed and fri furosemide 20 mg tablet 10 mg PO EVERY OTHER DAY 0RF insulin lispro 100 unit/mL insulin pen See Rx Instructions .ROUTE .COMPLEX 0RF Rx Instructions: SLIDING SCALE before meals AND BEDTIME-MAX OF 40 UNITS PER DAY 150-200= 0 units 201-250= 2 units 251-300= 4 units 301-350= 6 units 351-400= 8 units potassium chloride 20 mEq tablet extended release 20 meq PO BID 0RF pantoprazole 40 mg tablet,delayed release (DR/EC) 40 mg PO BID 0RF hydralazine 10 mg Tablet 10 mg PO TID Qty: 90 4RF diltiazem HCl [DILT-XR] 180 mg Capsule,Ext.Rel 24h Degradable 180 mg PO DAILY Qty: 60 3RF nystatin 100,000 unit/gram powder 1 applic topical DAILY Qty: 60 0RF Discontinued metoprolol tartrate 50 mg Tablet 100 mg PO BID@0900,2100 Qty: 60 3RF Discharge Orders: Discharge Order (Routine); Ordered 12/03/21 Ordered By: Enrique Dong Referrals: [facility] [place] Home [facility] ([facility]) [Outside] Davion Griggs MD [Primary Care Provider] - 7-10 days ([facility] will be calling you to schedule a followup with Dr. Griggs to be seen in 7 to 10 days. If you don't hear from them by Sunday, please give them a call. Thank you) Keisha Coronel MD [Physician] - 1 month ([facility] will be calling you to schedule a followup with Dr. Coronel to be seen in 1 month. If you don't hear from them by Sunday, please give them a call. Thank you) Shannan White FNP [Nurse Practitioner] - 1 week ([facility] will be calling you to schedule a followup with HUGO Vasquez to be seen in 1 week. If you don't hear from them by Sunday, please give them a call. Thank you) Discharge Diet: Cardiac Discharge Activity: Increase activity as tolerated Patient Instructions: Metoprolol (By mouth) (Lopressor, Toprol XL), Levofloxacin (By mouth) (Levaquin, Levaquin Leva-rolly), Opioid Safety Activity Restrictions/Additional Instructions: Hold Metoprolol DIGOXIN WELL CARDIZEM if the H/R IS IN 50S.CALL CARDIOLOGY OFFICE FOR INSTRUCTIONS Discharge Attestations Time Spent in Discharge Care*: less than 30 min Specific Discharge Activities: educating patient, educating and/or supporting family/caregiver, discussing with pcp/other providers, discussing with top case assembler/social workers/dc planners, documenting/other paperwork and evaluating patient/reviewing data Status at Discharge: Cognitive status at discharge: cognitively intact , Behavioral status at discharge: cooperative , Quality Metrics Clinical Quality Measures [ No reported AMI, CVA or VTE this stay] Coding Level of Care Code Acute Chg FW DC note Exam Detailed Diagnoses Somnolence R40.0
[2021-12-03 11:27] LABS: Glucose Point of Care 296 mg/dL (70-110)
--- NOTE | 2021-12-03 14:22 | PC.NURSE ---
Discharge Note Patient discharged to home via wheelchair accompanied by spouse. Discharge instructions reviewed with patient and/or inside outside sales representative. Mobile pharmacy medications and/or prescriptions provided. Belongings/home medications returned.
== END 2021-12-03 14:20 | disposition home health service (06) | DRG 689 ==
LOC: ER 23:07 → CSU 12-01 00:11
PROVIDERS: Admitting Provider Internal Medicine; Emergency Provider Emergency Medicine; PCP Family Medicine; Visit Provider Internal Medicine
DX: N39.0 Urinary tract infection, site not specified (principal); G93.41 Metabolic encephalopathy; N17.9 Acute kidney failure, unspecified; I13.0 Hypertensive heart and chronic kidney disease with heart failure and stage 1 through stage 4 chronic kidney disease, or unspecified chronic kidney disease; I50.30 Unspecified diastolic (congestive) heart failure; I48.91 Unspecified atrial fibrillation; Z87.891 Personal history of nicotine dependence; M79.7 Fibromyalgia; M06.9 Rheumatoid arthritis, unspecified; F32.A Depression, unspecified; J44.9 Chronic obstructive pulmonary disease, unspecified; N18.30 Chronic kidney disease, stage 3 unspecified; E11.22 Type 2 diabetes mellitus with diabetic chronic kidney disease; I25.10 Atherosclerotic heart disease of native coronary artery without angina pectoris; E66.9 Obesity, unspecified; Z68.36 Body mass index [BMI] 36.0-36.9, adult; G89.29 Other chronic pain; Z79.51 Long term (current) use of inhaled steroids; Z79.891 Long term (current) use of opiate analgesic; Z79.4 Long term (current) use of insulin; B96.1 Klebsiella pneumoniae [K. pneumoniae] as the cause of diseases classified elsewhere; E03.9 Hypothyroidism, unspecified; F41.9 Anxiety disorder, unspecified; F43.10 Post-traumatic stress disorder, unspecified
CPT/HCPCS: 36415; 36416; 36600; 70450; 71045; 80048; 80053; 80162; 81001; 82140; 82550; 82607; 82746; 82803; 82962; 83880; 84439; 84443; 84484; 85025; 85610; 87040; 87077; 87086; 87186; 93005; 94664; 96365; 96366; 96372; 96375; 99285; G0378; J0696; J1815; J2310; J3490; J7030

== ENCOUNTER → 2021-12-12 14:12 | Outpatient (BNVA) | payer MEDICARE, SELFPAY | PROVIDERS: PCP Family Medicine; Visit Provider Nurse Practitioner Family | DX: I16.0 Hypertensive urgency (principal); I48.91 Unspecified atrial fibrillation; I11.0 Hypertensive heart disease with heart failure; I50.9 Heart failure, unspecified; Z87.891 Personal history of nicotine dependence | CPT/HCPCS: 99214 ==

== ENCOUNTER → 2021-12-16 11:24 | Outpatient (BNVA) | payer MEDICARE, SELFPAY | PROVIDERS: PCP Family Medicine; Visit Provider Internal Medicine Rheumatology | DX: M06.041 Rheumatoid arthritis without rheumatoid factor, right hand (principal); M06.042 Rheumatoid arthritis without rheumatoid factor, left hand; Z79.899 Other long term (current) drug therapy; M79.7 Fibromyalgia; F32.A Depression, unspecified; F41.9 Anxiety disorder, unspecified; M81.0 Age-related osteoporosis without current pathological fracture; Z87.310 Personal history of (healed) osteoporosis fracture; Z71.89 Other specified counseling; E11.40 Type 2 diabetes mellitus with diabetic neuropathy, unspecified; E11.22 Type 2 diabetes mellitus with diabetic chronic kidney disease; N18.9 Chronic kidney disease, unspecified; I50.9 Heart failure, unspecified; I48.91 Unspecified atrial fibrillation; E03.9 Hypothyroidism, unspecified; K75.81 Nonalcoholic steatohepatitis (NASH) | CPT/HCPCS: 99214 ==

== ENCOUNTER → 2022-01-09 09:48 | Outpatient (BNVA) | payer MEDICARE, SELFPAY | PROVIDERS: PCP Family Medicine; Visit Provider Internal Medicine Cardiovascular Disease | DX: I10 Essential (primary) hypertension (principal); E03.9 Hypothyroidism, unspecified; E66.01 Morbid (severe) obesity due to excess calories; Z68.36 Body mass index [BMI] 36.0-36.9, adult; J44.9 Chronic obstructive pulmonary disease, unspecified; I48.0 Paroxysmal atrial fibrillation; D64.9 Anemia, unspecified | CPT/HCPCS: 99214 ==

== ENCOUNTER 2022-01-09 11:06 | Outpatient (CLI) | payer MEDICARE, SELFPAY ==
--- NOTE | 2022-01-09 11:21 | MM_ITS ---
WS: [id number] SCREENING DIGITAL BREAST TOMOSYNTHESIS MAMMOGRAM WITH CAD HISTORY: SCREENING COMPARISON: 06/17/2018 and 05/02/2017 Bilateral CC and MLO with tomosynthesis and synthetic mammography submitted. Computer aided detection analyzed. Very difficult exam technically. Pectoralis muscles were not included. Patient was in a wheelchair an d it required 2 technologists to attempt this examination. Breast composition: The breasts are heterogeneously dense, which may obscure small masses. There is a high density lobulated mass in the retroareolar region. This is probably just superior to the nipple measuring 2.4 x 2.1 cm. MM/[place] [id number] IMPRESSION: BI-RADS: 0-Incomplete: Need additional imaging evaluation FOLLOW UP: Need Additional Imaging Ultrasound LEFT breast retroareolar region.
== END 2022-01-09 11:07 | disposition home or self-care (01) ==
LOC: RAD 11:16
PROVIDERS: PCP Family Medicine; Visit Provider Family Medicine
DX: Z12.31 Encounter for screening mammogram for malignant neoplasm of breast (principal); N63.42 Unspecified lump in left breast, subareolar
CPT/HCPCS: 77063; 77067

== ENCOUNTER 2022-01-13 15:05 | Outpatient (CLI) | payer MEDICARE, SELFPAY ==
--- NOTE | 2022-01-13 15:11 | US_ITS ---
WS: [email or web address] ULTRASOUND LEFT BREAST HISTORY: L BREAST MASS COMPARISON: 01/09/2022 mammogram TECHNIQUE: 2-D and Doppler. Well-circumscribed mass at 12:00 in the anterior breast corresponds to the mammographic finding. Mass is very slightly lobulated with mild increased vascularity. Mass measures 3.0 x 2.6 x 1.3 cm. US/US breast LT limited* [id number] IMPRESSION: BI-RADS: 4-Suspicious Finding-Biopsy Should Be Considered FOLLOW-UP: Biopsy Recommended Solid well-circumscribed mass at 12:00 LEFT breast. Favor this is a benign fibr oadenoma. Recommend ultrasound-guided biopsy to confirm diagnosis.
== END 2022-01-13 15:06 | disposition home or self-care (01) ==
LOC: RAD 15:06
PROVIDERS: PCP Family Medicine; Visit Provider Family Medicine
DX: R92.8 Other abnormal and inconclusive findings on diagnostic imaging of breast (principal); N63.0 Unspecified lump in unspecified breast
CPT/HCPCS: 76642

== ENCOUNTER 2022-02-02 08:15 | Outpatient (CLI) | payer MEDICARE, SELFPAY ==
--- NOTE | 2022-02-02 | US_ITS ---
WS: [email or web address] ULTRASOUND-GUIDED LEFT BREAST BIOPSY CLINICAL INFORMATION: BREAST MASS COMPARISON: None. FINDINGS: The procedure including risks, benefits, and complications were discussed with the patient who agreed to proceed. Using sterile technique patient was prepped and draped in the usual sterile fashion. Aft er 1% lidocaine utilizing real-time ultrasound guidance 4 14-gauge cores were obtained of the LEFT br east lesion at the 12 o'clock position. Subsequently 40 cc of bloody fluid was aspirated. Complex cys tic lesion significantly decreased in size by the and of the examination and nearly resolved. Titaniu m biopsy clip placed in the cavity. No immediate complications. Pathology demonstrates A. Breast, left breast mass , biopsy: - Benign breast tissue with fibrocystic changes and stromal sclerosis. - No malignancy identified. US/[place] [id number] IMPRESSION: 1. Uncomplicated ultrasound-guided LEFT breast biopsy. 2. The pathology demonstrates benign breast tissue with fibrocystic changes. N o malignancy identified. 3. Recommend 6 month follow-up LEFT breast diagnostic mammography and ultrasou nd postbiopsy. BI-RADS: 2-Benign FOLLOW UP: 6 Month Follow-up
--- NOTE | 2022-02-02 | US_ITS ---
WS: [email or web address] ULTRASOUND-GUIDED LEFT BREAST BIOPSY CLINICAL INFORMATION: BREAST MASS COMPARISON: None. FINDINGS: The procedure including risks, benefits, and complications were discussed with the patient who agreed to proceed. Using sterile technique patient was prepped and draped in the usual sterile fashion. Aft er 1% lidocaine utilizing real-time ultrasound guidance 4 14-gauge cores were obtained of the LEFT br east lesion at the 12 o'clock position. Subsequently 40 cc of bloody fluid was aspirated. Complex cys tic lesion significantly decreased in size by the and of the examination and nearly resolved. Titaniu m biopsy clip placed in the cavity. No immediate complications. Pathology demonstrates A. Breast, left breast mass , biopsy: - Benign breast tissue with fibrocystic changes and stromal sclerosis. - No malignancy identified. US/[place] [id number] IMPRESSION: 1. Uncomplicated ultrasound-guided LEFT breast biopsy. 2. The pathology demonstrates benign breast tissue with fibrocystic changes. N o malignancy identified. 3. Recommend 6 month follow-up LEFT breast diagnostic mammography and ultrasou nd postbiopsy. BI-RADS: 2-Benign FOLLOW UP: 6 Month Follow-up
== END 2022-02-02 08:16 | disposition home or self-care (01) ==
LOC: RAD 08:17
PROVIDERS: PCP Family Medicine; Visit Provider Family Medicine
DX: N63.25 Unspecified lump in the left breast, overlapping quadrants (principal); N60.12 Diffuse cystic mastopathy of left breast
CPT/HCPCS: 10005; 19000; 19083; 76942; 88173; 88305

== ENCOUNTER → 2022-02-16 14:55 | Outpatient (BNVA) | payer MEDICARE, SELFPAY | PROVIDERS: PCP Family Medicine; Visit Provider Nurse Practitioner Psychiatric/Mental Health | DX: F43.12 Post-traumatic stress disorder, chronic (principal); F33.41 Major depressive disorder, recurrent, in partial remission; G89.29 Other chronic pain | CPT/HCPCS: 99213 ==

== ENCOUNTER 2022-03-21 14:09 | Outpatient (CLI) | payer MEDICARE, SELFPAY ==
--- NOTE | 2022-03-21 14:16 | XR_ITS ---
WS: [email or web address] DEXA (DUAL ENERGY X-RAY ABSORPTIOMETRY) Bone mineral density was performed using a Appian machine. HISTORY: CARE HOME STEROID USE COMPARISON: 04/01/2020 Lumbar spine BMD (L1-L4): 1.754 g/cm2 T score: 4.8 Z score: 5.5 Total hip BMD: Left: 1.139 g/cm2. T score: 1.0 Z score: 2.0 Right: 1.165 g/cm2. T score: 1.2 Z score: 2.2 10 year probability of a major osteoporotic fracture is 18%. Compared to the prior study from 04/01/2020. Lumbar spine bone mineral density has increased by 3.2%. Bilateral hips bone mineral density has decreased by 2.0%. XR/XR DEXA axial skeleton* [id number] IMPRESSION: NORMAL BONE MINERAL DENSITY based upon the WHO classification for females. Significant decrease in bone mineral density within the hips since the prior st udy. Increased bone mineral density in the spine may be falsely elevated due to sclerosis.
== END 2022-03-21 14:10 | disposition home or self-care (01) ==
LOC: RAD 14:09
PROVIDERS: PCP Family Medicine; Visit Provider Family Medicine
DX: Z79.899 Other long term (current) drug therapy (principal); Z79.52 Long term (current) use of systemic steroids
CPT/HCPCS: 77080

== ENCOUNTER 2022-03-28 16:40 | Outpatient (CLI) | payer MEDICARE, SELFPAY ==
[2022-03-28 17:29] LABS: Basophils % 0.7 %; Eosinophils % 0.5 %; Hematocrit 29.7 % (37.0-47.0); Hemoglobin 10.2 g/dL (11.5-15.3); Lymphocytes # 1.6 10^3/uL (0.8-4.8); Lymphocytes % 25.4 %; Mean Corpuscular HGB Conc 34.3 g/dL (30.0-36.0); Mean Corpuscular Hemoglobin 33.2 pg (28.0-34.0); Mean Corpuscular Volume 96.7 fl (81-99); Mean Platelet Volume 9.7 fL (7.4-10.4); Monocytes # 0.6 10^3/uL (0.2-0.9); Neutrophils # 3.91 10^3/uL (1.8-7.7); Neutrophils % 64.1 %; Nucleated Red Blood Cells % 0 %; Platelet Count 236 10^3/cmm (130-400); Red Blood Count 3.07 10^6/uL (4.1-5.3); Red Cell Distribution Width 13.9 % (12.1-15.1); White Blood Count 6.1 10^3/uL (4.0-10.0)
[2022-03-28 18:10] LABS: Alanine Aminotransferase 20 U/L (0-33); Albumin Level 3.8 g/dL (3.5-5.2); Alkaline Phosphatase 91 IU/L (35-105); Aspartate Amino Transferase 36 U/L (0-32); Globulin 2.9 g/dL (1.3-4.6); Total Bilirubin 0.3 mg/dL (0.15-1.2); Total Protein 6.7 g/dL (6.6-8.7)
== END 2022-03-28 16:41 | disposition home or self-care (01) ==
PROVIDERS: PCP Family Medicine; Visit Provider Internal Medicine Rheumatology
DX: M06.041 Rheumatoid arthritis without rheumatoid factor, right hand (principal); M06.042 Rheumatoid arthritis without rheumatoid factor, left hand; Z79.899 Other long term (current) drug therapy
CPT/HCPCS: 80076; 82565; 85025; 86140

== ENCOUNTER → 2022-04-04 13:46 | Outpatient (BNVA) | payer MEDICARE, SELFPAY | PROVIDERS: PCP Family Medicine; Visit Provider Internal Medicine Rheumatology | DX: M06.041 Rheumatoid arthritis without rheumatoid factor, right hand (principal); M06.042 Rheumatoid arthritis without rheumatoid factor, left hand; Z79.899 Other long term (current) drug therapy; M79.7 Fibromyalgia; Z71.89 Other specified counseling; M15.9 Polyosteoarthritis, unspecified; F41.9 Anxiety disorder, unspecified; F32.A Depression, unspecified; M80.88XA Other osteoporosis with current pathological fracture, vertebra(e), initial encounter for fracture; R29.6 Repeated falls; Z96.653 Presence of artificial knee joint, bilateral; E11.22 Type 2 diabetes mellitus with diabetic chronic kidney disease; E11.40 Type 2 diabetes mellitus with diabetic neuropathy, unspecified; N18.9 Chronic kidney disease, unspecified; Z79.4 Long term (current) use of insulin; I50.9 Heart failure, unspecified; I48.91 Unspecified atrial fibrillation; K75.81 Nonalcoholic steatohepatitis (NASH); E03.9 Hypothyroidism, unspecified | CPT/HCPCS: 99214 ==

== ENCOUNTER 2022-04-16 21:26 | Emergency (ER) | payer MEDICARE, SELFPAY ==
--- NOTE | 2022-04-16 21:34 | ED_ITS ---
Documented by User: Joby Adame MD 05/01/22 23:39 HPI - Chest Pain General: Chief Complaint: Chest Pain Stated Complaint: Chest Pain Time Seen by Provider: 04/16/22 21:34 History of Present Illness: Ms. Parker is a 71-year-old lady with complex past medical history including hypertension, hyperlipidemia, heart failure with preserved ejection fraction, fibromyalgia, CAD, atrial fibrillation presenting with abdominal and chest pain. She reports onset of symptoms at rest earlier this afternoon. She endorses left upper quadrant pain with radiation of the epigastric and then up into the chest that feels sharp. This goes into the shoulder and left arm. She has worsened pain with deep inspiration and movement. She does feel more short of breath and generally unwell. Denies specific infectious symptoms. Intensity symptoms is moderate to severe. Course has worsened. No other specific changes in health, exacerbating, or alleviating factors identified. Onset (ago): hour(s) Timing of current episode: constant Onset: during rest Pain location: substernal and epigastric Pain radiation: left arm and left shoulder Severity: moderate Quality: sharp Exacerbating factors: exertion and inspiration Review of Systems General: Reports: 10 or more systems reviewed and unremarkable except in HPI and below PFSH ED PFSH: Medical History Anxiety and depression CHF exacerbation Chronic knee pain Chronic low back pain COPD (chronic obstructive pulmonary disease) Oxygen dependent, 2 L at baseline Coronary artery disease COVID-14 August 2020 Duodenal ulcer due to bacteria Fibromyalgia High risk medication use Hyperlipidemia Hypertension Hypothyroidism Immunization counseling Inflammatory arthritis Intermittent atrial fibrillation Because the patient history of frequent fall she was thought to be high risk for bleeding complications. So she is taking only the aspirin at this time. SHE HAS EASY BRUISING WELL Left renal mass Liver cirrhosis Low back pain of over 3 months duration Lung nodule Narrow complex tachycardia Osteoarthritis of knees, bilateral Poorly controlled diabetes mellitus Psychiatric care Recurrent UTI Seronegative rheumatoid arthritis of both hands Unstable angina Urgency incontinence UTI (urinary tract infection) Surgical History History of cardiac cath History of cholecystectomy History of hysterectomy History of knee replacement History of thyroid surgery Family History Other CAD (coronary artery disease) Cancer Denies family history of Anesthesia complication Bleeding disorder Social History Smoking and tobacco status: former smoker Quit status (tobacco): has quit using tobacco Year quit tobacco: 2005 Second hand smoke exposure: No Alcohol intake: never Adopted: No Caregiver/support person: No Lives independently: No Household members: spouse Marital status: Current occupational status: retired History of recent travel: No Current gender identity: Female Female Reproductive History: Date of last menstrual period: 11/18/20 Physical Exam Const: COMMON NORMALS: alert GENERAL APPEARANCE: cooperative and well developed HENMT: COMMON NORMALS: normocephalic and atraumatic HEAD & SCALP: normocephalic and atraumatic Eye: COMMON NORMALS: conjunctivae normal CONJUNCTIVA: Yes conjunctivae normal SCLERA: sclerae normal Neck/C-Spine: COMMON NORMALS: supple GENERAL: Yes trachea midline Resp: COMMON NORMALS: normal respiratory effort and clear to auscultation bilaterally EFFORT & INSPECTION: Yes able to speak in complete sentences AUSCULTATION: clear to auscultation bilaterally Cardio: COMMON NORMALS: regular rate and regular rhythm RATE: regular rate RHYTHM: regular rhythm GI: COMMON NORMALS: Soft to palpation PALPATION: Yes Soft to palpation and No Tenderness to palpation present (GI) Extremity: GENERAL: Yes normal exam except as noted and No edema Neuro: COMMON NORMALS: moves all extremities SENSORIUM/ORIENTATION: Yes alert and No Orientation impaired Psych: COMMON NORMALS: mental status grossly normal and Normal thought process present THOUGHT PROCESS: Normal thought process present Course ED course: - Patient was seen and evaluated by me at bedside - Patient placed on cardiac monitors, IV access obtained - Initial evaluation notable for exam as above. - Labs and xrays personally interpreted by me. EKG shows first-degree AV block, right bundle branch block, no STEMI. -Aspirin and analgesia given - Labs notable for macrocytic anemia, metabolic panel similar to prior. Initial troponin only mildly elevated. - Imaging notable for no lobar consolidation or pneumothorax. CT imaging pending. -Handed off to Dr. Rodríguez pending completion of ED evaluation. Vital Signs: Vital signs: Vital Signs Temperature 98.5 F 04/16/22 21:50 Pulse Rate 99 04/17/22 00:42 Respiratory Rate 19 H 04/17/22 00:42 Blood Pressure 122/47 04/17/22 00:42 Pulse Oximetry 19 L 04/17/22 00:42 Oxygen Delivery Me thod 04/17/22 00:06 MDM - Chest Pain Medical Decision Making 71-year-old lady presenting with chest and abdominal pain. Handed off to Dr. Rodríguez pending region of ED evaluation. 71-year-old female presents with chest and abdominal discomfort. She was checked out to me by the previous physician at shift change. Symptoms are improved. CBC is at baseline for the patient. BMP is essentially at baseline. Her blood sugar is 315. She has an uncontrolled diabetic history. Digoxin level is appropriate. Her delta troponin is 1.8. She has no acute ST changes on EKG. CT of the chest abdomen pelvis are negative for any acute changes. She will be allowed home. Medical Records I reviewed the patient's medical records. Lab Data I reviewed the patient's lab results. : 04/16/22 21:57 04/16/22 21:57 Radiology Impressions Chest X-Ray 04/16/22 22:27 IMPRESSION: Negative exam. Chest/Abdomen/Pelvis CT 04/16/22 22:38 IMPRESSION: Negative for acute thoracic abnormality. IMPRESSION: Negative for acute abdominopelvic pathology. COMMENTS: Consistent with the [employer]'s Incidental Findings Committee white paper (J Am Cesar Radiol 2018): Any incidental renal lesion less than 1 cm or classified as too small to characterize, or any incidental cystic renal lesion characterized as simple-appearing, is likely benign. No follow-up imaging is recommended for these lesions per consensus recommendations based on imaging criteria. Laboratory Results WBC 8.2 10^3/uL (4.0-10.0) 04/16/22 21:57 RBC 2.79 10^6/uL (4.1-5.3) L 04/16/22 21:57 Hgb 9.6 g/dL (11.5-15.3) L 04/16/22 21:57 Hct 28.9 % (37.0-47.0) L 04/16/22 21:57 MCV 103.6 fl (81-99) H 04/16/22 21:57 MCH 34.4 pg (28.0-34.0) H 04/16/22 21:57 MCHC 33.2 g/dL (30.0-36.0) 04/16/22 21:57 RDW 15.0 % (12.1-15.1) 04/16/22 21:57 Plt Count 197 10^3/cmm (130-400) 04/16/22 21:57 MPV 9.8 fL (7.4-10.4) 04/16/22 21:57 Neut % (Auto) 80.0 % 04/16/22 21:57 Lymph % (Auto) 12.0 % 04/16/22 21:57 [place] % (Auto) 6.7 % 04/16/22 21:57 Eos % (Auto) 0.4 % 04/16/22 21:57 Baso % (Auto) 0.5 % 04/16/22 21:57 Neut # (Auto) 6.53 10^3/uL (1.8-7.7) 04/16/22 21:57 Lymph # (Auto) 1.0 10^3/uL (0.8-4.8) 04/16/22 21:57 [place] # (Auto) 0.6 10^3/uL (0.2-0.9) 04/16/22 21:57 Eos # (Auto) 0.0 10^3/uL (0.0-0.8) 04/16/22 21:57 Baso # (Auto) 0.0 10^3/uL (0.0-0.1) 04/16/22 21:57 Nucleated RBC % (auto) 0 % 04/16/22 21:57 Nucleated RBCs # 0.0 /100WBC 04/16/22 21:57 PT 13.50 SECONDS (12.1-14.9) 04/16/22 21:57 INR 1.00 (0.8-1.2) 04/16/22 21:57 APTT 25.7 SECONDS (23.9-36.7) 04/16/22 21:57 D-Dimer 0.69 ug/mIFEU (0-0.59) H 04/16/22 21:57 Sodium 136 mmol/L (136-145) 04/16/22 21:57 Potassium 4.6 mmol/L (3.5-5.1) 04/16/22 21:57 Chloride 95 mmol/L (98-107) L 04/16/22 21:57 Carbon Dioxide 32 mmol/L (22-29) H 04/16/22 21:57 Anion Gap 13.6 (5-19) 04/16/22 21:57 BUN 30 mg/dL (8-23) H 04/16/22 21:57 Creatinine 1.1 mg/dL (0.5-0.9) H 04/16/22 21:57 GFR Calculation Not Reportable 04/16/22 21:57 Glucose 315 mg/dL (65-115) H 04/16/22 21:57 Calculated Osmolality 300 mOsm/kg (285-295) H 04/16/22 21:57 Calcium 9.2 mg/dL (8.5-10.5) 04/16/22 21:57 Total Bilirubin 0.6 mg/dL (0.15-1.2) 04/16/22 21:57 AST 42 U/L (0-32) H 04/16/22 21:57 ALT 26 U/L (0-33) 04/16/22 21:57 Alkaline Phosphatase 103 U/L (35-105) 04/16/22 21:57 Troponin T Baseline 25 ng/L (0-10) H 04/16/22 21:57 Troponin T 120 Minute 26.89 ng/L (0-10) H 04/16/22 23:30 Delta Troponin T 1.89 ABS# (0-10) 04/16/22 23:30 NT-Pro-B Natriuret Pep 1360 pg/mL (0-125) H 04/16/22 21:57 Total Protein 6.0 g/dL (6.6-8.7) L 04/16/22 21:57 Albumin 3.6 g/dL (3.5-5.2) 04/16/22 21:57 Globulin 2.4 g/dL (1.3-4.6) 04/16/22 21:57 Digoxin 0.7 ng/mL (0.6-1.2) 04/16/22 21:57 Discharge Plan Discharge Patient Disposition: Home Clinical Impression: Chest pain Condition: Stable Prescriptions: No Action nitroglycerin [Nitrostat] 0.4 mg tablet, sublingual 0.4 mg SUBLINGUAL Q5M PRN (Reason: Chest Pain) Qty: 30 3RF Rx Instructions: MAX 3 DOSES PER EPISODE hydrocodone-acetaminophen 7.5-325 mg tablet 1 tab PO TID PRN (Reason: pain) 30 Days Qty: 90 0RF levothyroxine [Euthyrox] 150 mcg tablet 150 mcg PO QAM calcium carbonate [Calcium 600] 600 mg calcium (1,500 mg) tablet 600 mg PO DAILY methylsulfonylmethane [MSM] 1,000 mg tablet 1,000 mg PO BID imiquimod 5 % cream in packet 1 applic topical ONCE Qty: 24 1RF Rx Instructions: Apply thin film Sunday-Sunday (off weekends) for 6 weeks mupirocin 2 % ointment 1 applic topical BID Qty: 22 1RF Rx Instructions: Apply to affected area(s) until healed Humalog U-100 Insulin 100 unit/mL cartridge 55 unit SUBCUT BID Rx Instructions: 55 units qam and 35 units qpm Humira Pen 40 mg/0.8 mL pen injector kit 40 mg SUBCUT Q14D Qty: 2 3RF Hold Instructions: Resume on 08/02/21. Rx Instructions: TAKES ON SATURDAYS EVERY 14 DAYS methotrexate sodium 2.5 mg tablet 15 mg PO Q7D Qty: 30 3RF Rx Instructions: ON SATURDAYS duloxetine 60 mg capsule,delayed release(DR/EC) 60 mg PO DAILY@08 Qty: 90 0RF peg 3350-electrolytes [Golytely] 236-22.74-6.74 -5.86 gram recon soln 240 ml PO Q10M Qty: 4000 0RF Rx Instructions: until fecal effluent is clear folic acid 1 mg tablet 1 mg PO DAILY@08 Qty: 90 1RF digoxin 125 mcg (0.125 mg) tablet 125 mcg PO DIRECTED Qty: 75 3RF Rx Instructions: Alternate 1/2 Tab daily, next day 1 tab atorvastatin 80 mg tablet 80 mg PO BEDTIME Qty: 100 3RF diltiazem HCl [DILT-XR] 180 mg capsule,ext.rel 24h degradable 180 mg PO DAILY Qty: 100 3RF furosemide 20 mg tablet 10 mg PO EVERY OTHER DAY Qty: 100 3RF hydralazine 10 mg tablet 10 mg PO TID Qty: 270 3RF magnesium L-lactate 84 mg tablet extended release 84 mg PO BID Qty: 180 3RF metoprolol tartrate 50 mg tablet 50 mg PO BID Qty: 180 3RF potassium chloride 20 mEq tablet extended release 20 meq PO BID Qty: 180 3RF lisinopril 40 mg tablet 40 mg PO QPM Qty: 30 0RF Hold Instructions: Resume on 12/01/21. Rx Instructions: 1 yr supply was sent to [facility] in February acetaminophen [Arthritis Pain Reliever] 650 mg Tablet Extended Release 650 mg PO Q4H PRN (Reason: Pain) cholecalciferol (vitamin D3) [Vitamin D3] 25 mcg (1,000 unit) Tablet 2,000 unit PO DAILY@08 albuterol sulfate 2.5 mg /3 mL (0.083 %) Solution For Nebulization 2.5 mg inhalation TID PRN (Reason: Shortness Of Breath) albuterol sulfate 90 mcg/actuation Hfa Aerosol Inhaler 2 puff INHALATION Q6H PRN (Reason: Shortness Of Breath) docusate sodium [Stool Softener] 250 mg Capsule 250 mg PO BID cyanocobalamin (vitamin B-12) [Vitamin B-12] 500 mcg Tablet 500 mcg PO DAILY chlorpheniramine maleate [ChlorTabs] 4 mg Tablet See Rx Instructions .ROUTE .COMPLEX Rx Instructions: 4 mg orally TID THEN ALTERNATES WITH BENADRYL THEN NEXT DAY diphenhydramine HCl [Benadryl] 25 mg Capsule See Rx Instructions .ROUTE .COMPLEX Rx Instructions: 25MG PO TID THEN ALTERNATES WITH CHLORTAB THE NEXT DAY ferrous gluconate 324 mg (37.5 mg iron) tablet See Rx Instructions .ROUTE .COMPLEX Rx Instructions: ALTERNATE 1 TABLET DAILY WITH 2 TABLETS DAILY ferrous sulfate [FeroSul] 325 mg (65 mg iron) tablet See Rx Instructions .ROUTE .COMPLEX Rx Instructions: 325mg po on sun,mon,wed and fri insulin lispro 100 unit/mL insulin pen See Rx Instructions .ROUTE .COMPLEX Rx Instructions: SLIDING SCALE before meals AND BEDTIME-MAX OF 40 UNITS PER DAY 150-200= 0 units 201-250= 2 units 251-300= 4 units 301-350= 6 units 351-400= 8 units pantoprazole 40 mg tablet,delayed release (DR/EC) 40 mg PO BID nystatin 100,000 unit/gram powder 1 applic topical DAILY Qty: 60 0RF Discharge Orders: Discharge ED (Routine); Ordered 04/17/22 Ordered By: Matty Rodríguez Referrals: Davion Griggs MD [Primary Care Provider] - 1-3 days Patient Instructions: Opioid Safety Activity Restrictions/Additional Instructions: Return for worsening chest discomfort, worsening shortness of breath, mental status changes, other concerning symptoms. See your doctor this coming week. There may be more additional outpatient tests needed. Coding Level of Care Code ED Environmental Planning Engineer for Chg Fwd Exam Comprehensive Documented by User: Matty Rodríguez DO 04/17/22 00:12 HPI - Chest Pain General: Chief Complaint: Chest Pain Stated Complaint: Chest Pain Time Seen by Provider: 04/16/22 21:34 PFSH ED PFSH: Medical History Anxiety and depression CHF exacerbation Chronic knee pain Chronic low back pain COPD (chronic obstructive pulmonary disease) Oxygen dependent, 2 L at baseline Coronary artery disease COVID-14 August 2020 Duodenal ulcer due to bacteria Fibromyalgia High risk medication use Hyperlipidemia Hypertension Hypothyroidism Immunization counseling Inflammatory arthritis Intermittent atrial fibrillation Because the patient history of frequent fall she was thought to be high risk for bleeding complications. So she is taking only the aspirin at this time. SHE HAS EASY BRUISING WELL Left renal mass Liver cirrhosis Low back pain of over 3 months duration Lung nodule Narrow complex tachycardia Osteoarthritis of knees, bilateral Poorly controlled diabetes mellitus Psychiatric care Recurrent UTI Seronegative rheumatoid arthritis of both hands Unstable angina Urgency incontinence UTI (urinary tract infection) Surgical History History of cardiac cath History of cholecystectomy History of hysterectomy History of knee replacement History of thyroid surgery Family History Other CAD (coronary artery disease) Cancer Denies family history of Anesthesia complication Bleeding disorder Social History Smoking and tobacco status: former smoker Quit status (tobacco): has quit using tobacco Year quit tobacco: 2006 Second hand smoke exposure: No Alcohol intake: never Adopted: No Caregiver/support person: No Lives independently: No Household members: spouse Marital status: Current occupational status: retired History of recent travel: No Current gender identity: Female Course Vital Signs: Vital signs: Vital Signs Temperature 98.5 F 04/16/22 21:50 Pulse Rate 99 04/17/22 00:42 Respiratory Rate 19 H 04/17/22 00:42 Blood Pressure 122/47 04/17/22 00:42 Pulse Oximetry 19 L 04/17/22 00:42 Oxygen Delivery Me thod 04/17/22 00:06 MDM - Chest Pain Medical Decision Making 71-year-old female presents with chest and abdominal discomfort. She was checked out to me by the previous physician at shift change. Symptoms are improved. CBC is at baseline for the patient. BMP is essentially at baseline. Her blood sugar is 315. She has an uncontrolled diabetic history. Digoxin level is appropriate. Her delta troponin is 1.8. She has no acute ST changes on EKG. CT of the chest abdomen pelvis are negative for any acute changes. She will be allowed home. Lab Data : 04/16/22 21:57 04/16/22 21:57 Radiology Impressions Chest X-Ray 04/16/22 22:27 IMPRESSION: Negative exam. Chest/Abdomen/Pelvis CT 04/16/22 22:38 IMPRESSION: Negative for acute thoracic abnormality.
[2022-04-16 21:50] VITALS: BP 122/62; PULSE 73; RESP 16; TEMP 36.9; O2SAT 97; BMI 34.7
[2022-04-16 22:08] LABS: Basophils % 0.5 %; Eosinophils % 0.4 %; Hematocrit 28.9 % (37.0-47.0); Hemoglobin 9.6 g/dL (11.5-15.3); Mean Corpuscular HGB Conc 33.2 g/dL (30.0-36.0); Mean Corpuscular Hemoglobin 34.4 pg (28.0-34.0); Mean Corpuscular Volume 103.6 fl (81-99); Mean Platelet Volume 9.8 fL (7.4-10.4); Monocytes # 0.6 10^3/uL (0.2-0.9); Monocytes % 6.7 %; Neutrophils # 6.53 10^3/uL (1.8-7.7); Nucleated Red Blood Cells % 0 %; Platelet Count 197 10^3/cmm (130-400); Red Blood Count 2.79 10^6/uL (4.1-5.3); White Blood Count 8.2 10^3/uL (4.0-10.0)
[2022-04-16 22:21] LABS: Partial Thromboplastin Time 25.7 SECONDS (23.9-36.7)
[2022-04-16 22:23] LABS: D Dimer 0.69 ug/mIFEU (0-0.59)
--- NOTE | 2022-04-16 22:27 | XRR_ITS ---
PROCEDURE INFORMATION: Exam: XR Chest Exam date and time: 04/16/2022 10:30 PM Age: 71 years old Clinical indication: Pain; Chest pressure; Additional info: Cp TECHNIQUE: Imaging protocol: Radiologic exam of the chest. Views: 1 view. COMPARISON: CR XR chest 1V portable [id number] 11/30/2021 5:16 PM FINDINGS: Lungs: Unremarkable. No consolidation. Pleural spaces: Unremarkable. No pleural effusion. No pneumothorax. Heart/Mediastinum: Mild cardiac enlargement. Bones/joints: Unremarkable. XR/XR chest 1V portable [id number] IMPRESSION: Negative exam.
[2022-04-16 22:29] LABS: Digoxin 0.7 ng/mL (0.6-1.2)
[2022-04-16] MEDS: aspirin 81 mg Chew Tablet 324 MG PO (22:29)
[2022-04-16 22:31] LABS: Troponin(5th) Baseline 25 ng/L (0-10)
[2022-04-16 22:37] LABS: Alanine Aminotransferase 26 U/L (0-33); Albumin Level 3.6 g/dL (3.5-5.2); Alkaline Phosphatase 103 U/L (35-105); Blood Urea Nitrogen 30 mg/dL (8-23); Calcium 9.2 mg/dL (8.5-10.5); Carbon Dioxide 32 mmol/L (22-29); Chloride 95 mmol/L (98-107); Globulin 2.4 g/dL (1.3-4.6); Glucose 315 mg/dL (65-115); NT Pro B Type Natriuretic Pept 1360 pg/mL (0-125); Osmolality Calculated 300 mOsm/kg (285-295); Sodium 136 mmol/L (136-145); Total Bilirubin 0.6 mg/dL (0.15-1.2)
--- NOTE | 2022-04-16 22:38 | CTR_ITS ---
PROCEDURE INFORMATION: Exam: CT Chest Without Contrast; Diagnostic Exam date and time: 04/16/2022 10:51 PM Age: 71 years old Clinical indication: Abdominal pain; Localized; Left lower quadrant (llq); Chest pressure; Additional info: Luq/epigastric pain, chest pain and increased SOB TECHNIQUE: Imaging protocol: Diagnostic computed tomography of the chest without contrast. Radiation optimization: All CT scans at this facility use at least one of these dose optimization techniques: automated exposure control; mA and/or kV adjustment per patient size (includes targeted exams where dose is matched to clinical indication); or iterative reconstruction. COMPARISON: CT chest wo con [id number] 11/02/2020 8:20 PM RADIATION DOSE METRICS: Total DLP (mGy-cm): 1065.81 FINDINGS: Lungs: Unremarkable. No consolidation. No masses. Pleural spaces: Unremarkable. No pneumothorax. No pleural effusion. Heart: Mildly enlarged cardiac chambers. Negative for pericardial effusion. Mediastinal space: Unremarkable thoracic esophagus. Lymph nodes: Unremarkable. No enlarged lymph nodes. Vasculature: Dilated pulmonary arteries. Bones/joints: Unremarkable. No acute fracture. Soft tissues: Unremarkable. PROCEDURE INFORMATION: Exam: CT Abdomen And Pelvis Without Contrast Exam date and time: 04/16/2022 10:51 PM Age: 71 years old Clinical indication: Abdominal pain; Localized; Left lower quadrant (llq); Chest pressure; Additional info: Luq/epigastric pain, chest pain and increased SOB TECHNIQUE: Imaging protocol: Computed tomography of the abdomen and pelvis without contrast. Radiation optimization: All CT scans at this facility use at least one of these dose optimization techniques: automated exposure control; mA and/or kV adjustment per patient size (includes targeted exams where dose is matched to clinical indication); or iterative reconstruction. COMPARISON: CT abdomen pelvis con [id number] 11/26/2021 9:59 PM RADIATION DOSE METRICS: Total DLP (mGy-cm): 1065.81 FINDINGS: Liver: Liver contour mildly nodular. No focal liver mass. Gallbladder and bile ducts: Cholecystectomy. Unremarkable biliary system. Pancreas: Normal. No ductal dilation. Spleen: Normal. No splenomegaly. Adrenal glands: Normal. No mass. Kidneys and ureters: Multiple small simple renal cortical cysts. Negative for hydronephrosis. Small nonobstructing bilateral renal stones. Stomach and bowel: Unremarkable. No obstruction. No mucosal thickening. Appendix: No evidence of appendicitis. Intraperitoneal space: Unremarkable. No free air. No significant fluid collection. Vasculature: Diffuse calcified atherosclerotic plaques of abdominal aorta. Negative for aneurysm. Lymph nodes: Unremarkable. No enlarged lymph nodes. Urinary bladder: Decompressed bladder. Reproductive: Hysterectomy. Bones/joints: The lumbar spine demonstrates marked discogenic and apophyseal joint degenerative changes at multiple levels. Soft tissues: Unremarkable. CT/[place] [id number] IMPRESSION: Negative for acute thoracic abnormality. IMPRESSION: Negative for acute abdominopelvic pathology. COMMENTS: Consistent with the [employer]'s Incidental Findings Committee white paper (J Am Cesar Radiol 2018): Any incidental renal lesion less than 1 cm or classified as too small to characterize, or any incidental cystic renal lesion characterized as simple-appearing, is likely benign. No follow-up imaging is recommended for these lesions per consensus recommendations based on imaging criteria.
[2022-04-16 22:58] LABS: Anion Gap 13.6 (5-19); Aspartate Amino Transferase 42 U/L (0-32); Potassium 4.6 mmol/L (3.5-5.1)
[2022-04-16 23:19] VITALS: RESP 18; O2SAT 98
[2022-04-16] MEDS: morphine 4 mg/mL SDV 1 mL IVP (23:19)
--- NOTE | 2022-04-16 23:46 | ECG_ITS ---
[facility] Test Date: 2022-04-16 Pat Name: Myesha Parker Department: Room: Gender: Female Director Of Housing: : 1950 Requested By: Joby Admae Order Number: [id number] Wilbur MD: Lucia Oakley M.D. Measurements Intervals [place] Rate: 69 P: 57 CT: 241 QRS: -72 QRSD: 158 T: 52 QT: 448 QTc: 481 Interpretive Statements SINUS RHYTHM WITH FIRST DEGREE AV BLOCK RIGHT BUNDLE BRANCH BLOCK LEFT ANTERIOR FASCICULAR BLOCK MODERATE VOLTAGE CRITERIA FOR LVH, CONSIDER NORMAL VARIANT Compared to ECG 12/03/2021 10:11:32 First degree AV block now present Left anterior fascicular block now present Atrial fibrillation no longer present Ventricular premature complex(es) no longer present Left-axis deviation no longer present Myocardial infarct finding no longer present Electronically Signed On 04-17-2022 8:06:54 CDT by Lucia Oakley M.D. [email or web address]
[2022-04-17 00:03] LABS: Troponin 5 2HR 26.89 ng/L (0-10); Troponin 5 2HR Delta 1.89 ABS# (0-10)
[2022-04-17 00:06] VITALS: BP 96/61; PULSE 66; RESP 15; O2SAT 99
[2022-04-17 00:42] VITALS: BP 122/47; PULSE 99; RESP 19; O2SAT 19
== END 2022-04-17 00:31 | disposition home or self-care (01) ==
PROVIDERS: Emergency Medicine; Emergency Provider Emergency Medicine; PCP Family Medicine
DX: R07.9 Chest pain, unspecified (principal); Z79.4 Long term (current) use of insulin; I11.0 Hypertensive heart disease with heart failure; I50.9 Heart failure, unspecified; I25.10 Atherosclerotic heart disease of native coronary artery without angina pectoris; E78.5 Hyperlipidemia, unspecified; E11.9 Type 2 diabetes mellitus without complications; Z87.891 Personal history of nicotine dependence
CPT/HCPCS: 71045; 71250; 74176; 80053; 80162; 83880; 84484; 85025; 85378; 85610; 85730; 93005; 96374; 99285; J2270

== ENCOUNTER → 2022-04-27 14:52 | Outpatient (BNVA) | payer MEDICARE, SELFPAY | PROVIDERS: PCP Family Medicine; Visit Provider Surgery | DX: K92.1 Melena (principal); D64.9 Anemia, unspecified | CPT/HCPCS: 99203 ==

== ENCOUNTER 2022-06-23 09:48 | Day surgery (SDC) | payer MEDICARE, SELFPAY ==
[2022-06-22 13:37] VITALS: BMI 34.1
[2022-06-23 10:09] VITALS: BP 114/84; PULSE 103; RESP 18; TEMP 36.1; O2SAT 98
[2022-06-23] MEDS: sodium chloride 0.9% 1,000 ML 30 ML IV (10:10)
[2022-06-23 10:35] LABS: Glucose Point of Care 266 mg/dL (70-110)
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
--- NOTE | 2022-06-23 10:47 | P.HP_ITS ---
Same Day Surgery H&P Indication for Procedure/HPI DATE OF PROCEDURE: June 23, 2022 CHIEF COMPLAINT/INDICATIONFOR SURGICAL PROCEDURE: Anemia PREOP DIAGNOSIS: Anemia and black stool PLANNED PROCEDURE: Operation Date: 06/23/22 10:45 Proposed Procedures p EGD and colonoscopy [id number],K92.1(Not Applicable) - Gerald Correa MD s Colonoscopy(Not Applicable) - Gerald Correa MD 04/27/2022 This is a pleasant 71 years old female patient with history of obesity and a current weight of 210 pounds and a BMI of 35 with associated multiple medical comorbidities in the form of COPD, CHF, chronic oxygen 2 L nasal cannula at baseline, CAD, HTN, HLD, hypothyroidism, inflammatory, A. fib not on anticoagulation due to fall risk, liver cirrhosis, recurrent UTI, in addition to hypertensive urgency, history of duodenal ulcer, history of black stools, syncope, hypokalemia, fibromyalgia, generalized weakness, multiple falls orthost atic hypotension, palpitations, history of upper gastrointestinal bleed, seronegative rheumatoid arthritis of both hands, major depressive disorder recurrent, in partial remission, polypharmacy, osteoarthritis of knees, bilateral, high risk medication, low back pain of over 3 months duration, opioid contract exists major depressive disorder, recurrent, severe with psychotic features, chronic posttraumatic stress disorder, sleep apnea in adult, urgency incontinence, and history of left renal mass. Patient reports that she had previous endoscopies in the past and polyps were removed.? Patient is referred to me today in addition to the anemia presence of black stool. Interim history 06/23/2022 Patient comes today for diagnostic EGD and colonoscopy Medications/Allergies* Home Medications Medication Instructions Recorded Confirmed Type acetaminophen 650 mg 650 mg PO Q4H PRN Pain 10/12/19 06/22/22 History tablet,extended release (Arthritis Pain Reliever) cholecalciferol (vitamin D3) 25 2,000 unit PO DAILY@08 10/12/19 06/22/22 History mcg (1,000 unit) tablet (Vitamin D3) albuterol sulfate 2.5 mg/3 mL 2.5 mg inhalation TID PRN 10/08/20 06/22/22 History (0.083 %) solution for nebulization Shortness Of Breath albuterol sulfate 90 mcg/actuation 2 puff inhalation Q6H PRN 03/16/21 06/22/22 History aerosol inhaler Shortness Of Breath chlorpheniramine maleate 4 mg See Rx Instructions .Route .COMPLEX 03/16/21 06/22/22 History tablet (ChlorTabs) cyanocobalamin (vitamin B-12) 500 500 mcg PO DAILY 03/16/21 06/22/22 History mcg tablet (Vitamin B-12) diphenhydramine HCl 25 mg capsule See Rx Instructions .Route .COMPLEX 03/16/21 06/22/22 History (Benadryl) docusate sodium 250 mg capsule 250 mg PO BID 03/16/21 06/22/22 History (Stool Softener) ferrous gluconate 324 mg (37.5 mg See Rx Instructions .Route .COMPLEX 05/06/21 06/22/22 History iron) tablet calcium carbonate 600 mg calcium 600 mg PO DAILY 06/27/21 06/22/22 History (1,500 mg) tablet (Calcium) levothyroxine 150 mcg tablet 150 mcg PO QAM 06/27/21 06/22/22 History (Euthyrox) methylsulfonylmethane 1,000 mg 1,000 mg PO BID 06/27/21 06/22/22 History tablet (MSM) ferrous sulfate 325 mg (65 mg See Rx Instructions .Route .COMPLEX 09/13/21 06/22/22 History iron) tablet (FeroSul) insulin lispro 100 unit/mL See Rx Instructions .Route .COMPLEX 09/13/21 06/22/22 History subcutaneous pen pantoprazole 40 mg tablet,delayed 40 mg PO BID 09/13/21 06/22/22 History release insulin lispro 100 unit/mL 55 unit SUBCUT BID 01/09/22 06/22/22 History subcutaneous cartridge (Humalog U-100 Insulin) Allergies/Adverse Reactions Allergy/AdvReac Type Severity Reaction Status Date / Time adhesive tape Allergy rash Verified 06/23/22 10:47 cinnamon Allergy sinus Verified 06/23/22 10:47 codeine Allergy unknown Verified 06/23/22 10:47 cedar Allergy sinus Uncoded 06/23/22 10:47 pine Allergy sinus Uncoded 06/23/22 10:47 pork food Allergy ADR-Nausea Uncoded 06/23/22 10:47 Current Medications: Generic Name Dose Route Start Last Admin Trade Name Freq PRN Reason Stop Dose Admin Sodium Chloride 1,000 mls @ 30 mls/hr 06/23/22 10:00 06/23/22 10:10 Sodium Chloride 0.9% IV 06/24/22 09:59 30 mls/hr .Q24H JOCE Administration Pertinent History/Comorbid Conditions* Medical History (Updated 04/17/22 @ 00:10 by Matty Rodríguez DO) Anxiety and depression CHF exacerbation Chronic knee pain Chronic low back pain COPD (chronic obstructive pulmonary disease) Oxygen dependent, 2 L at baseline Coronary artery disease COVID-14 August 2020 Duodenal ulcer due to bacteria Fibromyalgia High risk medication use Hyperlipidemia Hypertension Hypothyroidism Immunization counseling Inflammatory arthritis Intermittent atrial fibrillation Because the patient history of frequent fall she was thought to be high risk for bleeding complications. So she is taking only the aspirin at this time. SHE HAS EASY BRUISING WELL Left renal mass Liver cirrhosis Low back pain of over 3 months duration Lung nodule Narrow complex tachycardia Osteoarthritis of knees, bilateral Poorly controlled diabetes mellitus Psychiatric care Recurrent UTI Seronegative rheumatoid arthritis of both hands Unstable angina Urgency incontinence UTI (urinary tract infection) Surgical History (Updated 10/13/20 @ 13:33 by Bayron Browne MD) History of cardiac cath History of cholecystectomy History of hysterectomy History of knee replacement History of thyroid surgery Family History (Updated 10/02/19 @ 08:32 by Guera Ghosh LPN) CAD (coronary artery disease) Cancer Denies family history of Anesthesia complication Bleeding disorder Social History Smoking and tobacco status: former smoker Quit status (tobacco): has quit using tobacco Year quit tobacco: 2005 Second hand smoke exposure: No Alcohol intake: never Adopted: No Caregiver/support person: No Lives independently: No Household members: spouse Marital status: Current occupational status: retired History of recent travel: No Current gender identity: Female Pertinent Exam Findings alert, oriented x 3, regular rate & rhythm and procedure specific exam findings (Abdominal exam nontender nondistended soft.) Recommendations Surgery/Procedure today (Diagnostic EGD and colonoscopy) Coding Level of Care Code Acute Philosophy Faculty Member for Dougie Samson
[2022-06-23 12:10] VITALS: BP 113/71; PULSE 101; RESP 16; TEMP 36.7; O2SAT 88
[2022-06-23 12:15] VITALS: BP 148/85; PULSE 98; RESP 18; O2SAT 92; O2SAT 93
--- NOTE | 2022-06-23 12:16 | PC.NURSE ---
1210 anesthesia at bedside. sao2 88 with 2 liter of o2. patient awake and following command. 1215 o2 increased to 5 liters, sao2 89. suction out secretions from oral airway. patient assisting. 1218 o2 sat 91. respirations even and regular.
--- NOTE | 2022-06-23 12:18 | ANE.PACU2 ---
Inpatient post-anesthesia follow up: Airway intact: Yes Vital signs: Temperature 98.0 F Pulse Rate 101 Respiratory Rate 16 Blood Pressure 113/71 Pulse Oximetry 88 Oxygen Delivery Me thod Nasal Cannula Oxygen Flow Rate 3 Fraction of Inspir ed Oxygen Hydration adequate: Yes Nausea and vomiting: No Pain level: 1 Mental status: Baseline
[2022-06-23 12:25] VITALS: BP 138/100; PULSE 99; RESP 18; O2SAT 92
--- NOTE | 2022-06-23 12:26 | PC.NURSE ---
patient on home o2 regularly
[2022-06-23 12:30] VITALS: O2SAT 94
[2022-06-23 12:34] VITALS: BP 151/95; PULSE 101; RESP 20; O2SAT 94
== END 2022-06-23 13:25 | disposition home or self-care (01) ==
PROVIDERS: PCP Family Medicine; Visit Provider Surgery
PROC: 0DJ08ZZ Inspection of Upper Intestinal Tract, Via Natural or Artificial Opening Endoscopic (ICD-10-PCS; CPT 43235; principal; 2022-06-23 10:45)
PROC: 0DJD8ZZ Inspection of Lower Intestinal Tract, Via Natural or Artificial Opening Endoscopic (ICD-10-PCS; CPT 45378; 2022-06-23 10:45)
DX: K92.1 Melena (principal); D12.2 Benign neoplasm of ascending colon; K31.7 Polyp of stomach and duodenum; Z87.891 Personal history of nicotine dependence; J44.9 Chronic obstructive pulmonary disease, unspecified; G47.30 Sleep apnea, unspecified; Z99.81 Dependence on supplemental oxygen; I48.91 Unspecified atrial fibrillation; I11.0 Hypertensive heart disease with heart failure; I50.9 Heart failure, unspecified; Z86.718 Personal history of other venous thrombosis and embolism; K21.9 Gastro-esophageal reflux disease without esophagitis; E78.5 Hyperlipidemia, unspecified; E11.40 Type 2 diabetes mellitus with diabetic neuropathy, unspecified; Z79.4 Long term (current) use of insulin; I25.10 Atherosclerotic heart disease of native coronary artery without angina pectoris
CPT/HCPCS: 36416; 43239; 43251; 45385; 82962; 88305; J2370; J2704; J7030

== ENCOUNTER → 2022-07-17 09:44 | Outpatient (BNVA) | payer MEDICARE, SELFPAY | PROVIDERS: PCP Family Medicine; Visit Provider Internal Medicine Cardiovascular Disease | DX: I48.91 Unspecified atrial fibrillation (principal); R00.2 Palpitations; I11.0 Hypertensive heart disease with heart failure; I50.9 Heart failure, unspecified; J44.9 Chronic obstructive pulmonary disease, unspecified; R29.6 Repeated falls; D64.9 Anemia, unspecified; Z87.891 Personal history of nicotine dependence | CPT/HCPCS: 99214 ==

== ENCOUNTER → 2022-07-24 16:15 | Outpatient (BNVA) | payer MEDICARE, SELFPAY | PROVIDERS: PCP Family Medicine; Visit Provider Internal Medicine Rheumatology | DX: M06.041 Rheumatoid arthritis without rheumatoid factor, right hand (principal); M06.042 Rheumatoid arthritis without rheumatoid factor, left hand; Z79.899 Other long term (current) drug therapy; Z71.89 Other specified counseling; M79.7 Fibromyalgia; F32.A Depression, unspecified; F41.9 Anxiety disorder, unspecified; M15.9 Polyosteoarthritis, unspecified; Z96.653 Presence of artificial knee joint, bilateral; Z91.81 History of falling; Z79.4 Long term (current) use of insulin; N18.9 Chronic kidney disease, unspecified; M80.08XD Age-related osteoporosis with current pathological fracture, vertebra(e), subsequent encounter for fracture with routine healing; M47.892 Other spondylosis, cervical region; M48.061 Spinal stenosis, lumbar region without neurogenic claudication; M47.26 Other spondylosis with radiculopathy, lumbar region; I48.91 Unspecified atrial fibrillation; E11.40 Type 2 diabetes mellitus with diabetic neuropathy, unspecified; E11.22 Type 2 diabetes mellitus with diabetic chronic kidney disease; E03.9 Hypothyroidism, unspecified; I50.9 Heart failure, unspecified; K75.81 Nonalcoholic steatohepatitis (NASH); R09.02 Hypoxemia | CPT/HCPCS: 99214 ==

== ENCOUNTER 2022-07-31 14:53 | Outpatient (CLI) | payer MEDICARE, SELFPAY ==
--- NOTE | 2022-07-31 14:59 | MM_ITS ---
WS: [id number] LEFT 3D TOMOSYNTHESIS DIGITAL MAMMOGRAPHY WITH CAD CLINICAL INFORMATION: 6M FOLLOW UP COMPARISON: 6 month follow-up postbiopsy. February 02, 2022 TECHNIQUE: 3 views of the left breast were obtained. FINDINGS: Scattered fibroglandular densities of the left breast. Vascular calcification. Punctate and Lucent ce ntered calcifications. Previously described dominant mass in the retroareolar region is less prominent today postbiopsy. Ass ociated biopsy clip. ULTRASOUND BREAST LEFT TECHNIQUE: Ultrasound left breast focused area of concern. CLINICAL INFORMATION: 6M FOLLOW UP COMPARISON: February 02, 2022 FINDINGS: Interval decrease in size of the previously aspirated complex cystic lesion at the 12:00 position. Th is is elongated and decompressed today improved from previous. Incidental simple cyst adjacent at the 12:00 position 4 cm from the nipple measuring 6 mm. Additional benign-appearing collection or cluster of microcysts at the 12:00 position 5 cm from the nipple quentin uring 2.4 x 1.4 x 0.5 cm. Recommend return to annual screening mammography MM/[place] [id number] IMPRESSION: BI-RADS: 2-Benign FOLLOW UP: 1 Year Follow-up Recommend return to annual screening mammography.
== END 2022-07-31 14:54 | disposition home or self-care (01) ==
LOC: RAD 14:53
PROVIDERS: PCP Family Medicine; Visit Provider Family Medicine
DX: R92.8 Other abnormal and inconclusive findings on diagnostic imaging of breast (principal)
CPT/HCPCS: 76642; 77061; G0279

== ENCOUNTER → 2022-10-09 14:50 | Outpatient (BNVA) | payer MEDICARE, SELFPAY | PROVIDERS: PCP Family Medicine; Visit Provider Internal Medicine Rheumatology | DX: M06.041 Rheumatoid arthritis without rheumatoid factor, right hand (principal); M06.042 Rheumatoid arthritis without rheumatoid factor, left hand; Z79.899 Other long term (current) drug therapy; Z71.89 Other specified counseling; M79.7 Fibromyalgia; F06.31 Mood disorder due to known physiological condition with depressive features; M47.892 Other spondylosis, cervical region; M47.896 Other spondylosis, lumbar region; M48.061 Spinal stenosis, lumbar region without neurogenic claudication; M54.16 Radiculopathy, lumbar region; E55.9 Vitamin D deficiency, unspecified; E11.8 Type 2 diabetes mellitus with unspecified complications; G62.9 Polyneuropathy, unspecified; E03.9 Hypothyroidism, unspecified; I24.8 Other forms of acute ischemic heart disease; I48.91 Unspecified atrial fibrillation; K75.81 Nonalcoholic steatohepatitis (NASH); N18.9 Chronic kidney disease, unspecified; I11.0 Hypertensive heart disease with heart failure | CPT/HCPCS: 99214 ==

== ENCOUNTER 2022-10-19 15:54 | Outpatient (CLI) | payer MEDICARE, SELFPAY ==
[2022-10-19 16:38] LABS: Basophils # 0.1 10^3/uL (0.0-0.1); Basophils % 0.9 %; Eosinophils # 0.1 10^3/uL (0.0-0.8); Eosinophils % 0.9 %; Hematocrit 33.4 % (37.0-47.0); Hemoglobin 10.9 g/dL (11.5-15.3); Lymphocytes # 1.5 10^3/uL (0.8-4.8); Lymphocytes % 25.9 %; Mean Corpuscular HGB Conc 32.6 g/dL (30.0-36.0); Mean Corpuscular Hemoglobin 33.1 pg (28.0-34.0); Mean Corpuscular Volume 101.5 fl (81-99); Mean Platelet Volume 9.9 fL (7.4-10.4); Monocytes # 0.6 10^3/uL (0.2-0.9); Monocytes % 10.8 %; Neutrophils # 3.47 10^3/uL (1.8-7.7); Neutrophils % 61.1 %; Nucleated Red Blood Cells % 0 %; Platelet Count 217 10^3/cmm (130-400); Red Blood Count 3.29 10^6/uL (4.1-5.3); Red Cell Distribution Width 13.9 % (12.1-15.1); White Blood Count 5.7 10^3/uL (4.0-10.0)
[2022-10-19 17:17] LABS: LAB Peripheral Smear Sent for Review
[2022-10-19 18:32] LABS: Iron 68 ug/dL (37-145); Percent Saturation 30.6 % (20-50); Total Iron Binding Capacity 222 mcg/dl; Unsaturated Iron Binding 154 ug/dL (112-347)
== END 2022-10-19 15:55 | disposition home or self-care (01) ==
LOC: LAB 15:57
PROVIDERS: PCP Family Medicine; Visit Provider Family Medicine
DX: D53.9 Nutritional anemia, unspecified (principal)
CPT/HCPCS: 36415; 80503; 83540; 83550; 85025

== ENCOUNTER 2022-11-10 14:33 | Emergency (ER) | payer MEDICARE, SELFPAY ==
[2022-11-10 14:34] VITALS: BP 129/73; PULSE 118; RESP 22; TEMP 36.3; O2SAT 96; BMI 34.7
--- NOTE | 2022-11-10 14:35 | W.ED.FALL ---
HPI - Fall General: Chief Complaint: Fall Stated Complaint: FALL/ NECK & BACK PAIN Time Seen by Provider: 11/10/22 14:35 History of Present Illness: Ms. Parker is a 72-year-old lady with multiple chronic medical conditions presenting to the emerged department for evaluation of altered she reports falling backwards with a trip and fall as she has baseline difficulty ambulating. Denies preceding chest pain, shortness of breath though is somewhat vague on exact cause. Reports shoulder and back pain. She was not on the ground for some period of time. Moderate intensity symptoms worse with palpation and movement. No other specific changes in health, exacerbating, or alleviating factors identified. Onset (ago): hour(s) Fall from: standing Place fall occurred: home Loss of consciousness: None Prolonged down time: hour(s) Context: tripped/slipped Location of injury: neck, back and abdomen Severity: moderate Quality: sharp and aching Review of Systems General: Reports: 10 or more systems reviewed and unremarkable except in HPI and below PFSH ED PFSH: Medical History Anxiety and depression CHF exacerbation Chronic knee pain Chronic low back pain COPD (chronic obstructive pulmonary disease) Oxygen dependent, 2 L at baseline Coronary artery disease COVID-14 August 2020 Duodenal ulcer due to bacteria Fibromyalgia High risk medication use Hyperlipidemia Hypertension Hypothyroidism Immunization counseling Inflammatory arthritis Intermittent atrial fibrillation Left renal mass Liver cirrhosis Low back pain of over 3 months duration Lung nodule Major depressive disorder, recurrent episode, moderate with anxious distress Narrow complex tachycardia Osteoarthritis of knees, bilateral Poorly controlled diabetes mellitus Psychiatric care Recurrent UTI Seronegative rheumatoid arthritis of both hands Unstable angina Urgency incontinence UTI (urinary tract infection) Surgical History History of cardiac cath History of cholecystectomy History of hysterectomy History of knee replacement History of thyroid surgery Family History Other CAD (coronary artery disease) Cancer Denies family history of Anesthesia complication Bleeding disorder Social History Smoking and tobacco status: former smoker Quit status (tobacco): has quit using tobacco Year quit tobacco: 2005 Second hand smoke exposure: No Alcohol intake: never Adopted: No Caregiver/support person: No Lives independently: No Household members: spouse Marital status: Current occupational status: retired Current gender identity: Female Physical Exam Const: COMMON NORMALS: alert GENERAL APPEARANCE: cooperative and well developed HENMT: COMMON NORMALS: normocephalic and atraumatic HEAD & SCALP: normocephalic and atraumatic THROAT: posterior oropharynx normal OTHER: No bustos signs or raccoon eyes. No hemotympanum. No otorrhea or rhinorrhea. Jaw alignment normal. Dentition baseline. No obvious bony step-offs. No septal hematoma. No evidence of ocular entrapment. Eye: COMMON NORMALS: conjunctivae normal CONJUNCTIVA: Yes conjunctivae normal SCLERA: sclerae normal Neck/C-Spine: COMMON NORMALS: supple GENERAL: Yes trachea midline OTHER: Paraspinal tenderness palpation. Resp: COMMON NORMALS: normal respiratory effort EFFORT & INSPECTION: Yes able to speak in complete sentences Cardio: COMMON NORMALS: regular rate and regular rhythm RATE: regular rate RHYTHM: regular rhythm GI: COMMON NORMALS: Soft to palpation PALPATION: Yes Soft to palpation, Yes Tenderness to palpation present (GI), No Guarding due to palpation present (GI) and No Rigid due to palpation Back/Pelvis: OTHER: Paraspinal and spinal tenderness palpation. Extremity: NARRATIVE EXTREMITY EXAM: Bilateral knee hand elbow contusions with tenderness palpation and range of motion. No obvious bony deformity. Distal CMS intact. GENERAL: Yes normal exam except as noted and No edema Neuro: COMMON NORMALS: moves all extremities SENSORIUM/ORIENTATION: Yes alert and No Orientation impaired Psych: COMMON NORMALS: mental status grossly normal and Normal thought process present THOUGHT PROCESS: Normal thought process present Course Vital Signs: Vital signs: Vital Signs Temperature 97.4 F L 11/10/22 14:34 Pulse Rate 79 11/10/22 17:47 Respiratory Rate 18 11/10/22 17:47 Blood Pressure 123/73 11/10/22 17:47 Pulse Oximetry 96 11/10/22 14:34 Oxygen Delivery Me thod 11/10/22 14:34 MDM - Fall Medical Decision Making 72-year-old lady very chronically ill baseline presenting to the emergency department due to fall with prolonged downtime. Exam as above with head to toe exam performed. Labs notable for near baseline hematologic panel with macrocytic anemia and normal white blood cell count. Metabolic panel similar to baseline without acute derangement explain symptoms. CK is normal. Minimalization and transaminase. CTs and x-rays negative for acute traumatic injury. Incidental findings discussed with patient. Improved with analgesia and small fluid bolus Most of etiology of patient's symptoms is soft tissue injury from fall. The results of ED evaluation were discussed with the patient including prescriptions and/or symptomatic cares (if applicable) including appropriate and responsible use, followup plan, and return precautions. The patient verbalized understanding and felt safe for discharge. Medical Records I reviewed the patient's medical records. Lab Data I reviewed the patient's lab results. 11/10/22 15:13 11/10/22 15:13 Radiology Impressions Cervical Spine CT 11/10/22 14:50 IMPRESSION: Negative for acute cervical spine abnormality. Chest/Abdomen/Pelvis CT 11/10/22 14:50 IMPRESSION: Negative for thoracic injury. IMPRESSION: Negative for acute abdominopelvic injury. COMMENTS: Consistent with the [employer]'s Incidental Findings Committee white paper (J Am Cesar Radiol 2018): Any incidental renal lesion less than 1 cm or classified as too small to characterize, or any incidental cystic renal lesion characterized as simple-appearing, is likely benign. No follow-up imaging is recommended for these lesions per consensus recommendations based on imaging criteria. Elbow X-Ray 11/10/22 14:50 IMPRESSION: No acute bone or joint abnormality. Mild osteoarthritis. Head CT 11/10/22 14:50 IMPRESSION: Negative for acute intracranial pathology. Knee X-Ray 11/10/22 14:50 IMPRESSION: Stable right knee arthroplasty. No acute abnormality. Laboratory Results WBC 6.2 10^3/uL (4.0-10.0) 11/10/22 15:13 RBC 3.12 10^6/uL (4.1-5.3) L 11/10/22 15:13 Hgb 10.5 g/dL (11.5-15.3) L 11/10/22 15:13 Hct 31.6 % (37.0-47.0) L 11/10/22 15:13 MCV 101.3 fl (81-99) H 11/10/22 15:13 MCH 33.7 pg (28.0-34.0) 11/10/22 15:13 MCHC 33.2 g/dL (30.0-36.0) 11/10/22 15:13 RDW 13.9 % (12.1-15.1) 11/10/22 15:13 Plt Count 196 10^3/cmm (130-400) 11/10/22 15:13 MPV 9.6 fL (7.4-10.4) 11/10/22 15:13 Neut % (Auto) 69.7 % 11/10/22 15:13 Lymph % (Auto) 20.0 % 11/10/22 15:13 [place] % (Auto) 9.0 % 11/10/22 15:13 Eos % (Auto) 0.5 % 11/10/22 15:13 Baso % (Auto) 0.5 % 11/10/22 15:13 Neut # (Auto) 4.33 10^3/uL (1.8-7.7) 11/10/22 15:13 Lymph # (Auto) 1.2 10^3/uL (0.8-4.8) 11/10/22 15:13 [place] # (Auto) 0.6 10^3/uL (0.2-0.9) 11/10/22 15:13 Eos # (Auto) 0.0 10^3/uL (0.0-0.8) 11/10/22 15:13 Baso # (Auto) 0.0 10^3/uL (0.0-0.1) 11/10/22 15:13 Nucleated RBC % (auto) 0 % 11/10/22 15:13 Nucleated RBCs # 0.0 /100WBC 11/10/22 15:13 Sodium 142 mmol/L (136-145) 11/10/22 15:13 Potassium 4.2 mmol/L (3.5-5.1) 11/10/22 15:13 Chloride 97 mmol/L (98-107) L 11/10/22 15:13 Carbon Dioxide 33 mmol/L (22-29) H 11/10/22 15:13 Anion Gap 16.2 (5-19) 11/10/22 15:13 BUN 22 mg/dL (8-23) 11/10/22 15:13 Creatinine 1.0 mg/dL (0.5-0.9) H 11/10/22 15:13 GFR Calculation Not Reportable 11/10/22 15:13 Glucose 375 mg/dL (65-115) H 11/10/22 15:13 Calculated Osmolality 313 mOsm/kg (285-295) H 11/10/22 15:13 Calcium 10.1 mg/dL (8.5-10.5) 11/10/22 15:13 Total Bilirubin 0.3 mg/dL (0.15-1.2) 11/10/22 15:13 AST 38 U/L (0-32) H 11/10/22 15:13 ALT 25 U/L (0-33) 11/10/22 15:13 Alkaline Phosphatase 95 U/L (35-105) 11/10/22 15:13 Creatine Kinase 35 U/L (26-192) 11/10/22 15:13 Total Protein 6.3 g/dL (6.6-8.7) L 11/10/22 15:13 Albumin 3.7 g/dL (3.5-5.2) 11/10/22 15:13 Globulin 2.6 g/dL (1.3-4.6) 11/10/22 15:13 Discharge Plan Discharge Patient Disposition: Home Clinical Impression: Fall, CHI (closed head injury), Neck pain, Back pain, Bilateral knee pain, Pain of both elbows, Chronic anemia, CKD (chronic kidney disease), Elevated AST (SGOT) Condition: Stable Prescriptions: No Action nitroglycerin [Nitrostat] 0.4 mg tablet, sublingual 0.4 mg SUBLINGUAL Q5M PRN (Reason: Chest Pain) Qty: 30 3RF Rx Instructions: MAX 3 DOSES PER EPISODE hydrocodone-acetaminophen 7.5-325 mg tablet 1 tab PO TID PRN (Reason: pain) 30 Days Qty: 90 0RF levothyroxine [Euthyrox] 150 mcg tablet 150 mcg PO QAM calcium carbonate [Calcium 600] 600 mg calcium (1,500 mg) tablet 600 mg PO DAILY methylsulfonylmethane [MSM] 1,000 mg tablet 1,000 mg PO BID mupirocin 2 % ointment 1 applic topical BID Qty: 22 1RF Rx Instructions: Apply to affected area(s) until healed Humalog U-100 Insulin 100 unit/mL cartridge 55 unit SUBCUT BID Rx Instructions: 55 units qam and 35 units qpm duloxetine 60 mg capsule,delayed release(DR/EC) 60 mg PO DAILY@08 Qty: 120 0RF ketoconazole 2 % cream 1 applic topical BID Qty: 60 3RF Rx Instructions: Apply to affected areas in skin folds x 3 weeks then prn for flares folic acid 1 mg tablet 1 mg PO DAILY@08 Qty: 90 1RF methotrexate sodium 2.5 mg tablet 15 mg PO Q7D Qty: 30 3RF Rx Instructions: ON SATURDAYS digoxin 125 mcg (0.125 mg) tablet 125 mcg PO DIRECTED Qty: 75 3RF Rx Instructions: Alternate 1/2 Tab daily, next day 1 tab atorvastatin 80 mg tablet 80 mg PO BEDTIME Qty: 100 3RF diltiazem HCl [DILT-XR] 180 mg capsule,ext.rel 24h degradable 180 mg PO DAILY Qty: 100 3RF furosemide 20 mg tablet 10 mg PO EVERY OTHER DAY Qty: 100 3RF hydralazine 10 mg tablet 10 mg PO TID Qty: 270 3RF magnesium L-lactate 84 mg tablet extended release 84 mg PO BID Qty: 180 3RF metoprolol tartrate 50 mg tablet 50 mg PO BID Qty: 180 3RF potassium chloride 20 mEq tablet extended release 20 meq PO BID Qty: 180 3RF lisinopril 40 mg tablet 40 mg PO QPM Qty: 30 0RF Hold Instructions: Resume on 12/01/21. Rx Instructions: 1 yr supply was sent to [facility] in February sulfasalazine 500 mg tablet See Rx Instructions .ROUTE .COMPLEX Qty: 60 3RF Dose Instruction: TAKE ONE TABLET BY MOUTH TWICE DAILY 9AM-5PM Rx Instructions: TAKE ONE TABLET BY MOUTH TWICE DAILY 9AM-5PM Humira Pen 40 mg/0.8 mL pen injector kit 40 mg SUBCUT Q14D Qty: 2 3RF Hold Instructions: Resume on 08/02/21. Rx Instructions: TAKES ON SATURDAYS EVERY 14 DAYS acetaminophen [Arthritis Pain Reliever] 650 mg Tablet Extended Release 650 mg PO Q4H PRN (Reason: Pain) cholecalciferol (vitamin D3) [Vitamin D3] 25 mcg (1,000 unit) Tablet 2,000 unit PO DAILY@08 albuterol sulfate 2.5 mg /3 mL (0.083 %) Solution For Nebulization 2.5 mg inhalation TID PRN (Reason: Shortness Of Breath) albuterol sulfate 90 mcg/actuation Hfa Aerosol Inhaler 2 puff INHALATION Q6H PRN (Reason: Shortness Of Breath) docusate sodium [Stool Softener] 250 mg Capsule 250 mg PO BID cyanocobalamin (vitamin B-12) [Vitamin B-12] 500 mcg Tablet 500 mcg PO DAILY chlorpheniramine maleate [ChlorTabs] 4 mg Tablet See Rx Instructions .ROUTE .COMPLEX Rx Instructions: 4 mg orally TID THEN ALTERNATES WITH BENADRYL THEN NEXT DAY diphenhydramine HCl [Benadryl] 25 mg Capsule See Rx Instructions .ROUTE .COMPLEX Rx Instructions: 25MG PO TID THEN ALTERNATES WITH CHLORTAB THE NEXT DAY ferrous gluconate 324 mg (37.5 mg iron) tablet See Rx Instructions .ROUTE .COMPLEX Rx Instructions: ALTERNATE 1 TABLET DAILY WITH 2 TABLETS DAILY ferrous sulfate [FeroSul] 325 mg (65 mg iron) tablet See Rx Instructions .ROUTE .COMPLEX Rx Instructions: 325mg po on sun,mon,wed and fri insulin lispro 100 unit/mL insulin pen See Rx Instructions .ROUTE .COMPLEX Rx Instructions: SLIDING SCALE before meals AND BEDTIME-MAX OF 40 UNITS PER DAY 150-200= 0 units 201-250= 2 units 251-300= 4 units 301-350= 6 units 351-400= 8 units pantoprazole 40 mg tablet,delayed release (DR/EC) 40 mg PO BID nystatin 100,000 unit/gram powder 1 applic topical DAILY Qty: 60 0RF Discharge Orders: Discharge ED (Routine); Ordered 11/10/22 Ordered By: Joby Adame Referrals: Davion Griggs MD [Primary Care Provider] - Discharge Diet: Usual diet Discharge Activity: Increase activity as tolerated Patient Instructions: Fall Prevention for Older Adults (ED), Head Injury (ED), Back Pain (ED), Neck Pain (ED), Opioid Safety Activity Restrictions/Additional Instructions: Thank you for visiting the emergency department. You were seen and evaluated for fall with head, neck, back pain and joint pain. The most likely cause of your symptoms is soft tissue injury as no acute internal or bony injury was identified. Please continue your home pain medication regimen. Please follow-up with your primary care provider. Return to the emergency department for uncontrolled symptoms or anything else that you are concerned about and feel needs emergency department evaluation. Coding Level of Care Code ED [employer] for Dougie Samson
--- NOTE | 2022-11-10 14:50 | CTR_ITS ---
PROCEDURE INFORMATION: Exam: CT Head Without Contrast Exam date and time: 11/10/2022 4:12 PM Age: 72 years old Clinical indication: Injury or trauma; Fall; Blunt trauma (contusions or hematomas); Additional info: Fall, posterior head pain TECHNIQUE: Imaging protocol: Computed tomography of the head without contrast. Radiation optimization: All CT scans at this facility use at least one of these dose optimization techniques: automated exposure control; mA and/or kV adjustment per patient size (includes targeted exams where dose is matched to clinical indication); or iterative reconstruction. REPORTING DATA: Count of CT and Cardiac NM exams in prior 12 months: This patient has received 7 known CTs and 0 known cardiac nuclear medicine studies in the 12 months prior to the current study. COMPARISON: CT head wo con* [id number] 11/30/2021 5:59 PM RADIATION DOSE METRICS: Total DLP (mGy-cm): 1157.23 FINDINGS: Brain: There is moderate cerebral atrophy. There is moderate diffuse heterogeneity of the white matter attenuation, consistent with chronic white matter ischemic changes. Negative for intracranial hemorrhage. Negative for midline shift of brain. Garcia matter and white matter interfaces are preserved. Cerebral ventricles: No ventriculomegaly. Paranasal sinuses: Visualized sinuses are unremarkable. No fluid levels. Mastoid air cells: Visualized mastoid air cells are well aerated. Bones/joints: Unremarkable. No acute fracture. Soft tissues: Unremarkable. CT/CT head wo con* [id number] IMPRESSION: Negative for acute intracranial pathology.
--- NOTE | 2022-11-10 14:50 | XR_ITS ---
WS: [id number] XR knee RT 3V* [id number] REASON FOR EXAM: fall, pain FINDINGS: Right knee arthroplasty. Components of the arthroplasty are in proper position and alignment and unchanged compared to 05/27/20 21. No fracture identified. XR/XR knee RT 3V* [id number] IMPRESSION: Stable right knee arthroplasty. No acute abnormality.
--- NOTE | 2022-11-10 14:50 | XR_ITS ---
WS: [id number] XR knee LT 3V* [id number] REASON FOR EXAM: fall, pain FINDINGS: Left knee arthroplasty. Prosthetic components are in proper position and alignment and unchanged comp ared to 03/23/2021. No fracture is identified. XR/XR knee LT 3V* [id number] IMPRESSION: Stable left knee arthroplasty. No acute abnormality.
--- NOTE | 2022-11-10 14:50 | CTR_ITS ---
PROCEDURE INFORMATION: Exam: CT Chest With Contrast; Diagnostic Exam date and time: 11/10/2022 4:18 PM Age: 72 years old Clinical indication: Injury or trauma; Fall; Generalized; Blunt trauma (contusions or hematomas); Prior surgery; Surgery type: Cardiac cath; Kirti; Hyst; Thyroid; Additional info: Fall, back pain, anterior chest pain, abd pain TECHNIQUE: Imaging protocol: Diagnostic computed tomography of the chest with contrast. Radiation optimization: All CT scans at this facility use at least one of these dose optimization techniques: automated exposure control; mA and/or kV adjustment per patient size (includes targeted exams where dose is matched to clinical indication); or iterative reconstruction. Contrast material: OMNI 350; Contrast volume: 100 ml; Contrast route: INTRAVENOUS (IV); REPORTING DATA: Count of CT and Cardiac NM exams in prior 12 months: This patient has received 8 known CTs and 0 known cardiac nuclear medicine studies in the 12 months prior to the current study. COMPARISON: [place] [id number] 04/16/2022 10:51 PM RADIATION DOSE METRICS: Total DLP (mGy-cm): 1484.65 FINDINGS: Thyroid: Small calcified bilateral thyroid nodules without thyromegaly. Lungs: Unremarkable. No consolidation. No masses. Pleural spaces: Unremarkable. No pneumothorax. No pleural effusion. Heart: Unremarkable. No cardiomegaly. No pericardial effusion. Mediastinal space: Midthoracic esophagus is mildly patulous without wall thickening identified. Lymph nodes: Unremarkable. No enlarged lymph nodes. Vasculature: Unremarkable. No aortic aneurysm. Bones/joints: Unremarkable. No acute fracture. Soft tissues: Unremarkable. COMMENTS: Consistent with the [place] [employer]'s Incidental Findings Committee white paper (J Am Cesar Radiol 2015): In patients aged 35 years and older with an incidental thyroid nodule equal to or greater than 1.[address], MRI or extrathyroidal US, further evaluation with dedicated thyroid US is recommended for patients with normal life expectancy and without comorbidities. For smaller nodules without suspicious features, no further evaluation or follow up is recommended. PROCEDURE INFORMATION: Exam: CT Abdomen And Pelvis With Contrast Exam date and time: 11/10/2022 4:18 PM Age: 72 years old Clinical indication: Injury or trauma; Fall; Generalized; Blunt trauma (contusions or hematomas); Prior surgery; Surgery type: Cardiac cath; Kirti; Hyst; Thyroid; Additional info: Fall, back pain, anterior chest pain, abd pain TECHNIQUE: Imaging protocol: Computed tomography of the abdomen and pelvis with contrast. Radiation optimization: All CT scans at this facility use at least one of these dose optimization techniques: automated exposure control; mA and/or kV adjustment per patient size (includes targeted exams where dose is matched to clinical indication); or iterative reconstruction. Contrast material: OMNI 350; Contrast volume: 100 ml; Contrast route: INTRAVENOUS (IV); REPORTING DATA: Count of CT and Cardiac NM exams in prior 12 months: This patient has received 8 known CTs and 0 known cardiac nuclear medicine studies in the 12 months prior to the current study. COMPARISON: [place] [id number] 04/16/2022 10:51 PM RADIATION DOSE METRICS: Total DLP (mGy-cm): 1484.65 FINDINGS: Liver: Normal. No mass. Gallbladder and bile ducts: Cholecystectomy. Unremarkable biliary system. Pancreas: Normal. No ductal dilation. Spleen: Normal. No splenomegaly. Adrenal glands: Normal. No mass. Kidneys and ureters: Lobulated renal cortices. Multiple small simple left renal cortical cyst. Negative for hydronephrosis. Small nonobstructing bilateral renal stones. Negative for renal injury or perinephric inflammation. Stomach and bowel: Unremarkable. No obstruction. No mucosal thickening. Appendix: No evidence of appendicitis. Intraperitoneal space: Unremarkable. No free air. No significant fluid collection. Vasculature: Scattered calcified wall plaques of abdominal aorta. Negative for aneurysm. Negative for injury. Lymph nodes: Unremarkable. No enlarged lymph nodes. Urinary bladder: Unremarkable as visualized. Reproductive: Hysterectomy. Bones/joints: Unremarkable. No acute fracture. The lumbar spine demonstrates marked discogenic and apophyseal joint degenerative changes at multiple levels. Soft tissues: Unremarkable. CT/CT chest abdpel w/*[id number] IMPRESSION: Negative for thoracic injury. IMPRESSION: Negative for acute abdominopelvic injury. COMMENTS: Consistent with the [place] [employer]'s Incidental Findings Committee white paper (J Am Cesar Radiol 2018): Any incidental renal lesion less than 1 cm or classified as too small to characterize, or any incidental cystic renal lesion characterized as simple-appearing, is likely benign. No follow-up imaging is recommended for these lesions per consensus recommendations based on imaging criteria.
--- NOTE | 2022-11-10 14:50 | CTR_ITS ---
PROCEDURE INFORMATION: Exam: CT Cervical Spine Without Contrast Exam date and time: 11/10/2022 4:12 PM Age: 72 years old Clinical indication: Injury or trauma; Fall; Blunt trauma; Prior surgery; Surgery type: Thyroid; Additional info: Fall, posterior neck pain TECHNIQUE: Imaging protocol: Computed tomography of the cervical spine without contrast. Radiation optimization: All CT scans at this facility use at least one of these dose optimization techniques: automated exposure control; mA and/or kV adjustment per patient size (includes targeted exams where dose is matched to clinical indication); or iterative reconstruction. REPORTING DATA: Count of CT and Cardiac NM exams in prior 12 months: This patient has received 8 known CTs and 0 known cardiac nuclear medicine studies in the 12 months prior to the current study. COMPARISON: CT cervical spin wo con* [id number] 08/02/2021 1:53 AM RADIATION DOSE METRICS: Total DLP (mGy-cm): 264.5 FINDINGS: Bones/joints: The cervical spine demonstrates marked degenerative changes at multiple levels. Negative for traumatic malalignment. Negative for cervical spine fracture. Lungs: Lung apices are normal. Thyroid: Atrophic thyroid lobes with multiple calcifications. Soft tissues: Unremarkable. CT/CT cervical spin wo con* [id number] IMPRESSION: Negative for acute cervical spine abnormality.
--- NOTE | 2022-11-10 14:50 | XR_ITS ---
WS: [id number] XR elbow RT min 3V* [id number] REASON FOR EXAM: fall, posterior pain FINDINGS: No fat pad displacement identified. Humerus, radius, and ulna are intact without fracture. Joint spaces of the right elbow are intact and well preserved. XR/XR elbow RT min 3V* [id number] IMPRESSION: No acute bone or joint abnormality.
--- NOTE | 2022-11-10 14:50 | XR_ITS ---
WS: [id number] XR elbow LT min 3V* [id number] REASON FOR EXAM: fall, posterior pain FINDINGS: Humerus, radius, and ulna are intact without fracture. Mild narrowing of the medial elbow joint space with mild mild osteophytosis. Similar findings seen in the coronoid process. XR/XR elbow LT min 3V* [id number] IMPRESSION: No acute bone or joint abnormality. Mild osteoarthritis.
[2022-11-10] MEDS: morphine 4 mg/mL SDV 1 mL IVP (15:15)
[2022-11-10] MEDS: sodium chloride 0.9% 500 ML 999 ML IV (15:15)
[2022-11-10 15:18] LABS: Basophils % 0.5 %; Eosinophils % 0.5 %; Hematocrit 31.6 % (37.0-47.0); Hemoglobin 10.5 g/dL (11.5-15.3); Lymphocytes # 1.2 10^3/uL (0.8-4.8); Mean Corpuscular HGB Conc 33.2 g/dL (30.0-36.0); Mean Corpuscular Hemoglobin 33.7 pg (28.0-34.0); Mean Corpuscular Volume 101.3 fl (81-99); Mean Platelet Volume 9.6 fL (7.4-10.4); Monocytes # 0.6 10^3/uL (0.2-0.9); Neutrophils # 4.33 10^3/uL (1.8-7.7); Neutrophils % 69.7 %; Nucleated Red Blood Cells % 0 %; Platelet Count 196 10^3/cmm (130-400); Red Blood Count 3.12 10^6/uL (4.1-5.3); Red Cell Distribution Width 13.9 % (12.1-15.1); White Blood Count 6.2 10^3/uL (4.0-10.0)
[2022-11-10 15:39] LABS: Alanine Aminotransferase 25 U/L (0-33); Albumin Level 3.7 g/dL (3.5-5.2); Alkaline Phosphatase 95 U/L (35-105); Anion Gap 16.2 (5-19); Aspartate Amino Transferase 38 U/L (0-32); Blood Urea Nitrogen 22 mg/dL (8-23); Calcium 10.1 mg/dL (8.5-10.5); Carbon Dioxide 33 mmol/L (22-29); Chloride 97 mmol/L (98-107); Creatine Phosphokinase 35 U/L (26-192); Globulin 2.6 g/dL (1.3-4.6); Glucose 375 mg/dL (65-115); Osmolality Calculated 313 mOsm/kg (285-295); Potassium 4.2 mmol/L (3.5-5.1); Sodium 142 mmol/L (136-145); Total Bilirubin 0.3 mg/dL (0.15-1.2); Total Protein 6.3 g/dL (6.6-8.7)
[2022-11-10] MEDS: iohexol 350 mg/mL 500 mL Btl (per mL) IV (16:17)
[2022-11-10 17:47] VITALS: BP 123/73; PULSE 79; RESP 18
== END 2022-11-10 17:49 | disposition home or self-care (01) ==
PROVIDERS: Emergency Provider Emergency Medicine; PCP Family Medicine
DX: S09.8XXA Other specified injuries of head, initial encounter (principal); M54.9 Dorsalgia, unspecified; M54.2 Cervicalgia; M25.562 Pain in left knee; M25.561 Pain in right knee; M25.522 Pain in left elbow; M25.521 Pain in right elbow; D64.89 Other specified anemias; R74.01 Elevation of levels of liver transaminase levels; Z79.4 Long term (current) use of insulin; I13.0 Hypertensive heart and chronic kidney disease with heart failure and stage 1 through stage 4 chronic kidney disease, or unspecified chronic kidney disease; E11.22 Type 2 diabetes mellitus with diabetic chronic kidney disease; N18.9 Chronic kidney disease, unspecified; I50.9 Heart failure, unspecified; J44.9 Chronic obstructive pulmonary disease, unspecified; Z99.81 Dependence on supplemental oxygen; I25.10 Atherosclerotic heart disease of native coronary artery without angina pectoris; E78.5 Hyperlipidemia, unspecified; Z87.891 Personal history of nicotine dependence; W01.0XXA Fall on same level from slipping, tripping and stumbling without subsequent striking against object, initial encounter
CPT/HCPCS: 70450; 71260; 72125; 73080; 73562; 74177; 80053; 82550; 85025; 96374; 99285; J2270; J7040; Q9967

== ENCOUNTER → 2023-01-10 14:54 | Outpatient (BNVA) | payer MEDICARE, SELFPAY | PROVIDERS: PCP Family Medicine; Visit Provider Internal Medicine Rheumatology | DX: M06.041 Rheumatoid arthritis without rheumatoid factor, right hand (principal); M06.042 Rheumatoid arthritis without rheumatoid factor, left hand; Z71.89 Other specified counseling; Z79.899 Other long term (current) drug therapy | CPT/HCPCS: 99214 ==

== ENCOUNTER 2023-01-11 14:46 | Outpatient (CLI) | payer MEDICARE, SELFPAY ==
--- NOTE | 2023-01-11 14:56 | MM_ITS ---
WS: [id number] BILATERAL 3D TOMOSYNTHESIS DIGITAL SCREENING MAMMOGRAPHY WITH CAD CLINICAL INFORMATION: SCREENING HISTORY: Screening mammogram. No current complaints. COMPARISON: 2021 TECHNIQUE: Bilateral CC and MLO views. FINDINGS: The breasts are composed of heterogeneous fibroglandular density tissue, which can limit the detectio n of small underlying mass lesions. No suspicious mass, asymmetry, calcifications, or architectural d istortion. No evidence of malignancy. Incidental punctate and lucent centered calcifications. Vascula r calcification. MM/[place] [id number] IMPRESSION: BI-RADS: 2-Benign FOLLOW UP: 1 Year Follow-up Recommend return to annual screening mammography.
== END 2023-01-11 14:47 | disposition home or self-care (01) ==
PROVIDERS: PCP Family Medicine; Visit Provider Family Medicine
DX: Z12.31 Encounter for screening mammogram for malignant neoplasm of breast (principal)
CPT/HCPCS: 77063; 77067

== ENCOUNTER → 2023-02-12 15:34 | Outpatient (BNVA) | payer MEDICARE, SELFPAY | PROVIDERS: PCP Family Medicine; Visit Provider Nurse Practitioner Family | DX: I48.20 Chronic atrial fibrillation, unspecified (principal); I11.0 Hypertensive heart disease with heart failure; I50.30 Unspecified diastolic (congestive) heart failure; Z87.891 Personal history of nicotine dependence | CPT/HCPCS: 99213 ==

== ENCOUNTER → 2023-03-12 15:16 | Outpatient (BNVA) | payer MEDICARE, SELFPAY | PROVIDERS: PCP Family Medicine; Visit Provider Dermatology | DX: L57.0 Actinic keratosis (principal); L72.0 Epidermal cyst; L73.8 Other specified follicular disorders; L57.8 Other skin changes due to chronic exposure to nonionizing radiation; L81.4 Other melanin hyperpigmentation; L82.1 Other seborrheic keratosis; Z85.828 Personal history of other malignant neoplasm of skin; Z87.891 Personal history of nicotine dependence | CPT/HCPCS: 17000; 17003; 99213 ==

== ENCOUNTER 2023-03-18 17:39 | Emergency (ER) | payer MEDICARE, SELFPAY ==
--- NOTE | 2023-03-18 18:04 | XRR_ITS ---
PROCEDURE INFORMATION: Exam: XR Chest Exam date and time: 03/18/2023 6:28 PM Age: 72 years old Clinical indication: Shortness of breath; Additional info: SOB TECHNIQUE: Imaging protocol: Radiologic exam of the chest. Views: 1 view. COMPARISON: CT chest abdpel [id number] 04/16/2022 10:51 PM FINDINGS: Lungs: Mild left infrahilar bronchopneumonia. Pleural spaces: Unremarkable. No pleural effusion. No pneumothorax. Heart/Mediastinum: Unremarkable. No cardiomegaly. Vasculature: Calcification of the thoracic aorta and/or great vessels consistent with atherosclerotic vessel disease. Bones/joints: Moderate thoracic spondylosis. XR/XR chest 1V portable [id number] IMPRESSION: Mild left infrahilar bronchopneumonia.
[2023-03-18 18:08] VITALS: BP 155/75; PULSE 91; RESP 16; TEMP 36.8; O2SAT 92; BMI 34.9
[2023-03-18 18:42] LABS: Basophils % 0.5 %; Eosinophils % 0.7 %; Hematocrit 29.2 % (37.0-47.0); Hemoglobin 9.5 g/dL (11.5-15.3); Lymphocytes # 0.8 10^3/uL (0.8-4.8); Lymphocytes % 13.4 %; Mean Corpuscular HGB Conc 32.5 g/dL (30.0-36.0); Mean Corpuscular Hemoglobin 33.9 pg (28.0-34.0); Mean Corpuscular Volume 104.3 fl (81-99); Mean Platelet Volume 9.2 fL (7.4-10.4); Monocytes # 0.5 10^3/uL (0.2-0.9); Monocytes % 8.6 %; Neutrophils # 4.69 10^3/uL (1.8-7.7); Neutrophils % 76.3 %; Nucleated Red Blood Cells % 0 %; Platelet Count 238 10^3/cmm (130-400); Red Cell Distribution Width 15.7 % (12.1-15.1); White Blood Count 6.1 10^3/uL (4.0-10.0)
--- NOTE | 2023-03-18 18:44 | ECG_ITS ---
[facility] Test Date: 2023-03-18 Pat Name: Myesha Parker Department: Room: Gender: Female Benzene Operator: : 1950 Requested By: Karma Garner Order Number: [id number] Wilbur MD: Lucia Oakley M.D. Measurements Intervals [place] Rate: 87 P: 0 GA: 0 QRS: -65 QRSD: 149 T: 54 QT: 401 QTc: 484 Interpretive Statements ATRIAL FIBRILLATION RIGHT BUNDLE BRANCH BLOCK [120+ ms QRS DURATION, UPRIGHT V1, 40+ ms S IN I/aVL/V4/V5/V6] LEFT ANTERIOR FASCICULAR BLOCK [QRS AXIS <= -45, QR IN I, RS IN II] PROBABLE SEPTAL MYOCARDIAL INFARCTION , OF INDETERMINATE AGE [35 ms Q WAVE IN V1/V2] Compared to ECG 04/16/2022 21:45:39 Myocardial infarct finding now present Sinus rhythm no longer present First degree AV block no longer present Electronically Signed On 03-19-2023 21:15:24 CDT by Lucia Oakley M.D. [id number]
--- NOTE | 2023-03-18 18:50 | ED_ITS ---
HPI - SOB/Dyspnea General: Chief Complaint: Shortness of Breath/Dyspnea Stated Complaint: SOB Time Seen by Provider: 03/18/23 18:34 Source: patient Mode of arrival: ambulatory Limitations: no limitations History of Present Illness: HPI Narrative: 72-year-old female with history of COPD she is on 2 L oxygen at baseline states over the last week she has been having worsening dyspnea she is also been having chest pain over the last week. States pains been a sharp pain she denies any cough patient here is in no distress pulse ox normal she is quite anxious. Had no vomiting or diarrhea. Associated symptoms: Reports chest pain; Deny abdominal pain, fever(s), nausea or vomiting Review of Systems Const: Denies: fever(s), chills, body aches or change in appetite Eyes: Denies: eye discomfort ENMT: Denies: throat pain or dental pain Card: Reports: chest pain Resp: Reports: dyspnea GI: Denies: abdominal pain, nausea, vomiting or diarrhea Musc: Denies: neck pain or back pain Skin/Breast: Denies: rash Neuro: Denies: headache(s) PFSH ED PFSH: Medical History Anxiety and depression CHF exacerbation Chronic knee pain Chronic low back pain COPD (chronic obstructive pulmonary disease) Oxygen dependent, 2 L at baseline Coronary artery disease COVID-14 August 2020 Duodenal ulcer due to bacteria Fibromyalgia High risk medication use Hyperlipidemia Hypertension Hypothyroidism Immunization counseling Inflammatory arthritis Intermittent atrial fibrillation Left renal mass Liver cirrhosis Low back pain of over 3 months duration Lung nodule Major depressive disorder, recurrent episode, moderate with anxious distress Narrow complex tachycardia Osteoarthritis of knees, bilateral Poorly controlled diabetes mellitus Psychiatric care Recurrent UTI Seronegative rheumatoid arthritis of both hands Unstable angina Urgency incontinence UTI (urinary tract infection) Surgical History History of cardiac cath History of cholecystectomy History of hysterectomy History of knee replacement History of thyroid surgery Family History Other CAD (coronary artery disease) Cancer Denies family history of Anesthesia complication Bleeding disorder Social History Smoking and tobacco status: former smoker Quit status (tobacco): has quit using tobacco Year quit tobacco: 2006 Second hand smoke exposure: No Alcohol intake: never Substance/Drug Use: never Adopted: No Caregiver/support person: No Lives independently: No Household members: spouse Marital status: Current occupational status: retired Current gender identity: Female Physical Exam Const: COMMON NORMALS: no acute distress, patient oriented x3 and healthy appearing GENERAL APPEARANCE: anxious HENMT: COMMON NORMALS: normocephalic and atraumatic HEAD & SCALP: normocephalic and atraumatic Eye: COMMON NORMALS: Equal, round and reactive pupils present and EOMs intact bilaterally PUPIL: Yes Equal, round and reactive pupils present Neck/C-Spine: COMMON NORMALS: full ROM and supple Chest: COMMONS NORMALS: normal inspection of the chest and normal palpation of entire chest wall Resp: COMMON NORMALS: normal respiratory effort, No retractions, No use of accessory muscles and clear to auscultation bilaterally AUSCULTATION: clear to auscultation bilaterally Cardio: COMMON NORMALS: regular rate, regular rhythm and No murmurs present (Cardio) RATE: regular rate RHYTHM: regular rhythm GI: COMMON NORMALS: Normal to inspection, nondistended, normoactive bowel sounds present, Soft to palpation, non-tender and no masses PALPATION: Yes Soft to palpation Extremity: COMMON NORMALS: normal to inspection and full ROM Neuro: COMMON NORMALS: patient oriented x3, moves all extremities and no focal motor deficits Psych: COMMON NORMALS: mental status grossly normal, Normal thought process present and cooperative THOUGHT PROCESS: Normal thought process present Skin: COMMON NORMALS: no rashes or lesions noted and no wounds GENERAL SKIN EXAM: no rashes or lesions noted Course Vital Signs: Vital signs: Vital Signs Temperature 98.3 F 03/18/23 18:08 Pulse Rate 107 H 03/18/23 21:48 Respiratory Rate 24 H 03/18/23 21:48 Blood Pressure 161/132 03/18/23 21:48 Pulse Oximetry 91 03/18/23 21:48 Oxygen Delivery Me thod Nasal Cannula 03/18/23 21:48 Oxygen Flow Rate 5 03/18/23 21:48 MDM - SOB/Dyspnea Medical Decision Making Patient presents for slight shortness of breath she has been in no distress here blood works normal x-ray showed a small pneumonia we will start her on antibiotics for home she is to follow-up with PCP and return if worsening. Medical Records I reviewed the patient's medical records. Lab Data I reviewed the patient's lab results. 03/18/23 18:37 03/18/23 18:37 Labs/Radiology: Radiology Impressions Chest X-Ray 03/18/23 18:04 IMPRESSION: Mild left infrahilar bronchopneumonia. Laboratory Results WBC 6.1 10^3/uL (4.0-10.0) 03/18/23 18:37 RBC 2.80 10^6/uL (4.1-5.3) L 03/18/23 18:37 Hgb 9.5 g/dL (11.5-15.3) L 03/18/23 18:37 Hct 29.2 % (37.0-47.0) L 03/18/23 18:37 MCV 104.3 fl (81-99) H 03/18/23 18:37 MCH 33.9 pg (28.0-34.0) 03/18/23 18:37 MCHC 32.5 g/dL (30.0-36.0) 03/18/23 18:37 RDW 15.7 % (12.1-15.1) H 03/18/23 18:37 Plt Count 238 10^3/cmm (130-400) 03/18/23 18:37 MPV 9.2 fL (7.4-10.4) 03/18/23 18:37 Neut % (Auto) 76.3 % 03/18/23 18:37 Lymph % (Auto) 13.4 % 03/18/23 18:37 [place] % (Auto) 8.6 % 03/18/23 18:37 Eos % (Auto) 0.7 % 03/18/23 18:37 Baso % (Auto) 0.5 % 03/18/23 18:37 Neut # (Auto) 4.69 10^3/uL (1.8-7.7) 03/18/23 18:37 Lymph # (Auto) 0.8 10^3/uL (0.8-4.8) 03/18/23 18:37 [place] # (Auto) 0.5 10^3/uL (0.2-0.9) 03/18/23 18:37 Eos # (Auto) 0.0 10^3/uL (0.0-0.8) 03/18/23 18:37 Baso # (Auto) 0.0 10^3/uL (0.0-0.1) 03/18/23 18:37 Nucleated RBC % (auto) 0 % 03/18/23 18:37 Nucleated RBCs # 0.0 /100WBC 03/18/23 18:37 PT 13.30 SECONDS (12.1-14.9) 03/18/23 18:37 INR 0.99 (0.8-1.2) 03/18/23 18:37 Specimen Type Arterial 03/18/23 19:20 Sample Site Brachial, right 03/18/23 19:20 ABG pH 7.39 (7.35-7.45) 03/18/23 19:20 ABG pCO2 57.9 mmHg (35-45) H 03/18/23 19:20 ABG pO2 72.9 mmHg (80.0-100.0) L 03/18/23 19:20 ABG HCO3 35.0 mmol/L (22-26) H 03/18/23 19:20 ABG Base Excess 8.7 mmol/L (-2.0-2.0) H 03/18/23 19:20 Memo Test N/a 03/18/23 19:20 Hematocrit 28.5 % (37-47) L 03/18/23 19:20 O2 Delivery Device Nc 03/18/23 19:20 O2 Liters/Min 3.0 % 03/18/23 19:20 FiO2 32.0 % 03/18/23 19:20 Customer Service Attendant ID Nida 03/18/23 19:20 Sodium 137 mmol/L (136-145) 03/18/23 18:37 Potassium 4.5 mmol/L (3.5-5.1) 03/18/23 18:37 Chloride 96 mmol/L (98-107) L 03/18/23 18:37 Carbon Dioxide 34 mmol/L (22-29) H 03/18/23 18:37 Anion Gap 11.5 (5-19) 03/18/23 18:37 BUN 20 mg/dL (8-23) 03/18/23 18:37 Creatinine 1.0 mg/dL (0.5-0.9) H 03/18/23 18:37 GFR Calculation Not Reportable 03/18/23 18:37 Glucose 298 mg/dL (65-115) H 03/18/23 18:37 Calculated Osmolality 298 mOsm/kg (285-295) H 03/18/23 18:37 Calcium 9.2 mg/dL (8.5-10.5) 03/18/23 18:37 Total Bilirubin 0.3 mg/dL (0.15-1.2) 03/18/23 18:37 AST 48 U/L (0-32) H 03/18/23 18:37 ALT 28 U/L (0-33) 03/18/23 18:37 Alkaline Phosphatase 129 U/L (35-105) H 03/18/23 18:37 Troponin T Baseline 22 ng/L (0-10) H 03/18/23 18:37 Troponin T 120 Minute 21.06 ng/L (0-10) H 03/18/23 20:37 Delta Troponin T -0.94 ABS# (0-10) L 03/18/23 20:37 NT-Pro-B Natriuret Pep 1532 pg/mL (0-125) H 03/18/23 18:37 Total Protein 6.4 g/dL (6.6-8.7) L 03/18/23 18:37 Albumin 3.5 g/dL (3.5-5.2) 03/18/23 18:37 Globulin 2.9 g/dL (1.3-4.6) 03/18/23 18:37 EKG Data EKG 1: I personally reviewed and interpreted this EKG as follows: EKG Interpretation Date: 03/18/23 EKG interpretation time: 19:05 Interpretation: afib hr [address] or t wave abnormalities qrs 149 qtc 446 Discharge Plan Discharge Patient Disposition: Home Clinical Impression: Pneumonia Condition: Stable Prescriptions: New doxycycline hyclate 100 mg tablet 100 mg PO BID 7 Days Qty: 14 0RF No Action nitroglycerin [Nitrostat] 0.4 mg tablet, sublingual 0.4 mg SUBLINGUAL Q5M PRN (Reason: Chest Pain) Qty: 30 3RF Rx Instructions: MAX 3 DOSES PER EPISODE hydrocodone-acetaminophen 7.5-325 mg tablet 1 tab PO TID PRN (Reason: pain) 30 Days Qty: 90 0RF levothyroxine [Euthyrox] 150 mcg tablet 150 mcg PO QAM calcium carbonate [Calcium 600] 600 mg calcium (1,500 mg) tablet 600 mg PO DAILY mupirocin 2 % ointment 1 applic topical BID Qty: 22 1RF Rx Instructions: Apply to affected area(s) until healed Humalog U-100 Insulin 100 unit/mL cartridge 60 unit SUBCUT BID Rx Instructions: 55 units qam and 35 units qpm ketoconazole 2 % cream 1 applic topical BID Qty: 60 3RF Rx Instructions: Apply to affected areas in skin folds x 3 weeks then prn for flares metoprolol tartrate 50 mg tablet 75 mg PO BID Qty: 180 3RF Humira Pen 40 mg/0.8 mL pen injector kit 40 mg SUBCUT Q14D Qty: 2 3RF Hold Instructions: Resume on 08/02/21. Rx Instructions: TAKES ON SATURDAYS EVERY 14 DAYS folic acid 1 mg tablet 1 mg PO DAILY@08 Qty: 90 1RF methotrexate sodium 2.5 mg tablet 15 mg PO Q7D Qty: 90 0RF Rx Instructions: ON SATURDAYS sulfasalazine 500 mg tablet See Rx Instructions .ROUTE .COMPLEX Qty: 180 0RF Dose Instruction: TAKE ONE TABLET BY MOUTH TWICE DAILY 9AM-5PM Rx Instructions: TAKE ONE TABLET BY MOUTH TWICE DAILY 9AM-5PM duloxetine 60 mg capsule,delayed release(DR/EC) 60 mg PO DAILY@08 Qty: 120 0RF digoxin 125 mcg (0.125 mg) tablet 125 mcg PO DIRECTED Qty: 75 3RF Rx Instructions: Alternate 1/2 Tab daily, next day 1 tab atorvastatin 80 mg tablet 80 mg PO BEDTIME Qty: 100 3RF diltiazem HCl [DILT-XR] 180 mg capsule,ext.rel 24h degradable 180 mg PO DAILY Qty: 100 3RF furosemide 20 mg tablet 10 mg PO EVERY OTHER DAY Qty: 100 3RF hydralazine 10 mg tablet 10 mg PO TID Qty: 270 3RF magnesium L-lactate 84 mg tablet extended release 84 mg PO BID Qty: 180 3RF lisinopril 40 mg tablet 40 mg PO QPM Qty: 30 0RF Hold Instructions: Resume on 12/01/21. Rx Instructions: 1 yr supply was sent to [facility] in February potassium chloride 20 mEq tablet extended release 20 meq PO BID Qty: 180 3RF acetaminophen [Arthritis Pain Reliever] 650 mg Tablet Extended Release 650 mg PO Q4H PRN (Reason: Pain) cholecalciferol (vitamin D3) [Vitamin D3] 25 mcg (1,000 unit) Tablet 2,000 unit PO DAILY@08 albuterol sulfate 2.5 mg /3 mL (0.083 %) Solution For Nebulization 2.5 mg inhalation TID PRN (Reason: Shortness Of Breath) albuterol sulfate 90 mcg/actuation Hfa Aerosol Inhaler 2 puff INHALATION Q6H PRN (Reason: Shortness Of Breath) docusate sodium [Stool Softener] 250 mg Capsule 250 mg PO BID cyanocobalamin (vitamin B-12) [Vitamin B-12] 500 mcg Tablet 500 mcg PO DAILY chlorpheniramine maleate [ChlorTabs] 4 mg Tablet See Rx Instructions .ROUTE .COMPLEX Rx Instructions: 4 mg orally TID THEN ALTERNATES WITH BENADRYL THEN NEXT DAY diphenhydramine HCl [Benadryl] 25 mg Capsule See Rx Instructions .ROUTE .COMPLEX Rx Instructions: 25MG PO TID THEN ALTERNATES WITH CHLORTAB THE NEXT DAY ferrous gluconate 324 mg (37.5 mg iron) tablet See Rx Instructions .ROUTE .COMPLEX Rx Instructions: ALTERNATE 1 TABLET DAILY WITH 2 TABLETS DAILY ferrous sulfate [FeroSul] 325 mg (65 mg iron) tablet See Rx Instructions .ROUTE .COMPLEX Rx Instructions: 325mg po on sun,mon,wed and fri insulin lispro 100 unit/mL insulin pen See Rx Instructions .ROUTE .COMPLEX Rx Instructions: SLIDING SCALE before meals AND BEDTIME-MAX OF 40 UNITS PER DAY 150-200= 0 units 201-250= 2 units 251-300= 4 units 301-350= 6 units 351-400= 8 units pantoprazole 40 mg tablet,delayed release (DR/EC) 40 mg PO BID nystatin 100,000 unit/gram powder 1 applic topical DAILY Qty: 60 0RF Discharge Orders: Discharge ED (Routine); Ordered 03/18/23 Ordered By: Karma Garner Referrals: Davion Griggs MD [Primary Care Provider] - 1-3 days Discharge Diet: Advance as tolerated Discharge Activity: Resume usual activity Patient Instructions: Pneumonia (ED) Coding Level of Care Code ED [employer] for Dougie Samson
[2023-03-18 18:54] LABS: INR 0.99 (0.8-1.2)
[2023-03-18 19:09] LABS: Albumin Level 3.5 g/dL (3.5-5.2); Alkaline Phosphatase 129 U/L (35-105); Blood Urea Nitrogen 20 mg/dL (8-23); Calcium 9.2 mg/dL (8.5-10.5); Carbon Dioxide 34 mmol/L (22-29); Chloride 96 mmol/L (98-107); Globulin 2.9 g/dL (1.3-4.6); Glucose 298 mg/dL (65-115); NT Pro B Type Natriuretic Pept 1532 pg/mL (0-125); Osmolality Calculated 298 mOsm/kg (285-295); Sodium 137 mmol/L (136-145); Total Bilirubin 0.3 mg/dL (0.15-1.2); Total Protein 6.4 g/dL (6.6-8.7)
[2023-03-18] MEDS: labetalol 5 mg/mL SDV 20mL 10 MG IVP (19:10)
[2023-03-18 19:14] VITALS: PULSE 90; RESP 22; O2SAT 94
[2023-03-18] MEDS: albuterol 2.5 mg/3 mL Neb INHALATION (19:14)
[2023-03-18] MEDS: dexamethasone 10 mg/mL INJ IVP (19:14)
[2023-03-18 19:16] LABS: Anion Gap 11.5 (5-19); Potassium 4.5 mmol/L (3.5-5.1)
[2023-03-18 19:17] LABS: Alanine Aminotransferase 28 U/L (0-33); Aspartate Amino Transferase 48 U/L (0-32)
[2023-03-18] MEDS: LORazepam 2 mg/mL INJ 1 mL 0.5 MG IVP (19:17)
[2023-03-18 19:18] VITALS: BP 160/96; PULSE 87; RESP 31; O2SAT 94
[2023-03-18 19:28] LABS: Troponin(5th) Baseline 22 ng/L (0-10)
[2023-03-18 19:29] LABS: ABG PCO2 57.9 mmHg (35-45); ABG PH Result 7.39 (7.35-7.45); Arterial Blood Gas Hematocrit 28.5 % (37-47); Base Excess ABG 8.7 mmol/L (-2.0-2.0); Blood Gas Sample Site Brachial, right; Blood Gas Sample Type Arterial; Oxygen Device NC; PO2 ABG 72.9 mmHg (80.0-100.0)
--- NOTE | 2023-03-18 20:44 | ECG_ITS ---
[facility] Test Date: 2023-03-18 Pat Name: Myseha Parker Department: Room: Gender: Female Legal Transcriptionist: : 1950 Requested By: Karma Garner Order Number: [id number] Wilbur MD: Lucia Oakley M.D. Measurements Intervals [place] Rate: 97 P: 0 [place]: 0 QRS: -71 QRSD: 145 T: 59 QT: 376 QTc: 480 Interpretive Statements ATRIAL FIBRILLATION RIGHT BUNDLE BRANCH BLOCK [120+ ms QRS DURATION, UPRIGHT V1, 40+ ms S IN I/aVL/V4/V5/V6] LEFT ANTERIOR FASCICULAR BLOCK [QRS AXIS <= -45, QR IN I, RS IN II] PROBABLE ANTEROSEPTAL MYOCARDIAL INFARCTION , OF INDETERMINATE AGE [35 ms Q WAVE IN V1-V4] Compared to ECG 03/18/2023 19:05:47 No significant changes Electronically Signed On 03-19-2023 21:34:46 CDT by Lucia Oakley M.D. [id number]
[2023-03-18 21:03] LABS: Troponin 5 2HR 21.06 ng/L (0-10)
[2023-03-18 21:17] LABS: Troponin 5 2HR Delta -0.94 ABS# (0-10)
[2023-03-18] MEDS: doxycycline 100 mg Tablet PO (21:47)
[2023-03-18 21:48] VITALS: BP 161/132; PULSE 107; RESP 24; O2SAT 91
[2023-03-18 22:58] VITALS: BP 174/125; PULSE 95; RESP 22; O2SAT 91
== END 2023-03-18 21:58 | disposition home or self-care (01) ==
PROVIDERS: Emergency Provider Emergency Medicine; PCP Family Medicine
DX: J44.0 Chronic obstructive pulmonary disease with (acute) lower respiratory infection (principal); J18.9 Pneumonia, unspecified organism; Z79.4 Long term (current) use of insulin; Z87.891 Personal history of nicotine dependence; I11.0 Hypertensive heart disease with heart failure; I50.9 Heart failure, unspecified; Z99.81 Dependence on supplemental oxygen; I25.10 Atherosclerotic heart disease of native coronary artery without angina pectoris; E78.5 Hyperlipidemia, unspecified
CPT/HCPCS: 36415; 36600; 71045; 80053; 82803; 83880; 84484; 85025; 85610; 93005; 94640; 96374; 96375; 99285; J1100; J2060; J3490; J7613

== ENCOUNTER 2023-04-08 06:54 | Emergency (ER) | payer MEDICARE, SELFPAY ==
--- NOTE | 2023-04-08 06:58 | CTR_ITS ---
PROCEDURE INFORMATION: Exam: CT Head Without Contrast Exam date and time: 04/08/2023 7:34 AM Age: 72 years old Clinical indication: Injury or trauma; Fall; Blunt trauma (contusions or hematomas); Without loss of consciousness; Additional info: Fall closed head injury TECHNIQUE: Imaging protocol: Computed tomography of the head without contrast. Radiation optimization: All CT scans at this facility use at least one of these dose optimization techniques: automated exposure control; mA and/or kV adjustment per patient size (includes targeted exams where dose is matched to clinical indication); or iterative reconstruction. REPORTING DATA: Count of CT and Cardiac NM exams in prior 12 months: This patient has received 4 known CTs and 0 known cardiac nuclear medicine studies in the 12 months prior to the current study. COMPARISON: CT head wo con* [id number] 11/30/2021 5:59 PM RADIATION DOSE METRICS: Total DLP (mGy-cm): 1147.3 FINDINGS: Brain: There is diffuse cerebral atrophy and chronic microvascular white matter disease. Basal cisterns are unremarkable. There is no acute intracranial hemorrhage. Cerebral ventricles: There is moderate ex vacuo dilation of the lateral ventricles. Paranasal sinuses: The paranasal sinuses are clear. Mastoid air cells: The mastoid air cells are clear. Orbital cavities: Bilateral proptosis. No orbital mass or extraocular muscle enlargement. No orbital edema. Bones/joints: There is hyperostosis frontalis. No skull fracture. Soft tissues: The visible extracranial soft tissues are unremarkable. CT/CT head wo con* [id number] IMPRESSION: 1. No acute intracranial abnormality. 2. Bilateral proptosis of uncertain etiology and significance. No orbital mass or extraocular muscle enlargement. No orbital edema. 3. Incidental findings above.
[2023-04-08 06:59] VITALS: BP 142/79; PULSE 99; RESP 18; TEMP 36.8; O2SAT 90; BMI 34.9
--- NOTE | 2023-04-08 07:06 | ED_ITS ---
HPI - Fall General: Chief Complaint: Fall Stated Complaint: fall/hit head Time Seen by Provider: 04/08/23 06:57 Source: patient Mode of arrival: ambulatory History of Present Illness: 72-year-old female presents emergency room with complaints of a mechanical ground-level fall this morning when she was getting back into bed she stumbled on some shoes on the floor she hit her head on a nightstand she went down. She denies any loss consciousness no vomiting she normally does wear oxygen at 2 L maintaining on her usual 2 L. She is not on any oral anticoagulation. Denies any other injury MD complaint: fall Onset (ago): hour(s) Fall from: standing Place fall occurred: home Loss of consciousness: None Prolonged down time: no Symptoms prior to fall: none Context: tripped/slipped Location of injury: head and neck Associated symptoms-after fall: Reports neck pain; Denies abdominal pain, chest pain, confusion, difficulty walking, headache(s), hematuria, lightheadedness, numbness, short of breath, vertigo or weakness Review of Systems Const: Denies: fever(s), chills, body aches, change in appetite, fatigue or malaise ENMT: Denies: throat pain, ear or mastoid pain, nasal discharge or nasal congestion Card: Denies: chest pain, palpitations, irregular heart rhythm or lightheadedness Resp: Denies: dyspnea, productive cough or non-productive cough GI: Denies: abdominal pain : Denies: hematuria Musc: Reports: neck pain and back pain Skin/Breast: Denies: rash or pruritus Neuro: Denies: headache(s), difficulty walking, vertigo or confusion PFS ED PFSH: Medical History Anxiety and depression CHF exacerbation Chronic knee pain Chronic low back pain COPD (chronic obstructive pulmonary disease) Oxygen dependent, 2 L at baseline Coronary artery disease COVID-14 August 2020 Duodenal ulcer due to bacteria Fibromyalgia High risk medication use Hyperlipidemia Hypertension Hypothyroidism Immunization counseling Inflammatory arthritis Intermittent atrial fibrillation Left renal mass Liver cirrhosis Low back pain of over 3 months duration Lung nodule Major depressive disorder, recurrent episode, moderate with anxious distress Narrow complex tachycardia Osteoarthritis of knees, bilateral Poorly controlled diabetes mellitus Psychiatric care Recurrent UTI Seronegative rheumatoid arthritis of both hands Unstable angina Urgency incontinence UTI (urinary tract infection) Surgical History History of cardiac cath History of cholecystectomy History of hysterectomy History of knee replacement History of thyroid surgery Family History Other CAD (coronary artery disease) Cancer Denies family history of Anesthesia complication Bleeding disorder Social History Smoking and tobacco status: former smoker Quit status (tobacco): has quit using tobacco Year quit tobacco: 2005 Second hand smoke exposure: No Alcohol intake: never Substance/Drug Use: never Adopted: No Caregiver/support person: No Lives independently: No Household members: spouse Marital status: Current occupational status: retired Current gender identity: Female Physical Exam 2 Const: GENERAL APPEARANCE: cooperative and comfortable ORIENTATION/CONSCIOUSNESS: Yes awake, Yes oriented to person, Yes oriented to place and Yes oriented to time HENMT: COMMON NORMALS: normocephalic, atraumatic and hearing grossly normal bilaterally HEAD & SCALP: normocephalic and atraumatic Resp: COMMON NORMALS: normal respiratory effort, No retractions, No use of accessory muscles and clear to auscultation bilaterally AUSCULTATION: clear to auscultation bilaterally Cardio: COMMON NORMALS: No murmurs present (Cardio) RATE: tachycardic RHYTHM: abnormal rhythm irregularly irregular GI: COMMON NORMALS: Soft to palpation and No hepatosplenomegaly present AUSCULTATION: Yes normoactive bowel sounds PALPATION: Yes Soft to palpation, No Tenderness to palpation present (GI), No Guarding due to palpation present (GI) and Yes No hepatosplenomegaly present Extremity: COMMON NORMALS: normal to inspection, capillary refill normal, no clubbing, cyanosis or edema, no calf tenderness and no pedal edema Neuro: SENSORIUM/ORIENTATION: Yes oriented to person, Yes oriented to place and Yes oriented to time Skin: COMMON NORMALS: no rashes or lesions noted GENERAL SKIN EXAM: no rashes or lesions noted Course Vital Signs: Vital signs: Vital Signs Temperature 98.2 F 04/08/23 06:59 Pulse Rate 89 04/08/23 07:48 Respiratory Rate 18 04/08/23 07:48 Blood Pressure 146/80 04/08/23 07:48 Pulse Oximetry 97 04/08/23 07:48 Oxygen Delivery Me thod Nasal Cannula 04/08/23 06:59 Oxygen Flow Rate 2 04/08/23 06:59 MDM - Fall Medical Decision Making Labs and imaging reviewed. Patient chronically anemic. CT head and neck are negative. No evidence of laceration on physical exam. Discharge patient home follow-up primary care as needed. Medical Records I reviewed the patient's medical records. Lab Data I reviewed the patient's lab results. 04/08/23 07:10 04/08/23 07:[address] 04/08/23 06:58 IMPRESSION: 1. No acute intracranial abnormality. 2. Bilateral proptosis of uncertain etiology and significance. No orbital mass or extraocular muscle enlargement. No orbital edema. 3. Incidental findings above. Cervical Spine CT 04/08/23 07:14 IMPRESSION: No acute fracture. Laboratory Results WBC 8.5 10^3/uL (4.0-10.0) 04/08/23 07:10 RBC 3.33 10^6/uL (4.1-5.3) L 04/08/23 07:10 Hgb 11.0 g/dL (11.5-15.3) L 04/08/23 07:10 Hct 34.0 % (37.0-47.0) L 04/08/23 07:10 MCV 102.1 fl (81-99) H 04/08/23 07:10 MCH 33.0 pg (28.0-34.0) 04/08/23 07:10 MCHC 32.4 g/dL (30.0-36.0) 04/08/23 07:10 RDW 14.9 % (12.1-15.1) 04/08/23 07:10 Plt Count 234 10^3/cmm (130-400) 04/08/23 07:10 MPV 9.3 fL (7.4-10.4) 04/08/23 07:10 Neut % (Auto) 67.6 % 04/08/23 07:10 Lymph % (Auto) 17.2 % 04/08/23 07:10 [place] % (Auto) 11.1 % 04/08/23 07:10 Eos % (Auto) 1.1 % 04/08/23 07:10 Baso % (Auto) 0.6 % 04/08/23 07:10 Neut # (Auto) 5.74 10^3/uL (1.8-7.7) 04/08/23 07:10 Lymph # (Auto) 1.5 10^3/uL (0.8-4.8) 04/08/23 07:10 [place] # (Auto) 0.9 10^3/uL (0.2-0.9) 04/08/23 07:10 Eos # (Auto) 0.1 10^3/uL (0.0-0.8) 04/08/23 07:10 Baso # (Auto) 0.1 10^3/uL (0.0-0.1) 04/08/23 07:10 Nucleated RBC % (auto) 0 % 04/08/23 07:10 Nucleated RBCs # 0.0 /100WBC 04/08/23 07:10 Sodium 140 mmol/L (136-145) 04/08/23 07:10 Potassium 3.7 mmol/L (3.5-5.1) 04/08/23 07:10 Chloride 94 mmol/L (98-107) L 04/08/23 07:10 Carbon Dioxide 36 mmol/L (22-29) H 04/08/23 07:10 Anion Gap 13.7 (5-19) 04/08/23 07:10 BUN 34 mg/dL (8-23) H 04/08/23 07:10 Creatinine 1.0 mg/dL (0.5-0.9) H 04/08/23 07:10 GFR Calculation Not Reportable 04/08/23 07:10 Glucose 252 mg/dL (65-115) H 04/08/23 07:10 Calculated Osmolality 306 mOsm/kg (285-295) H 04/08/23 07:10 Calcium 9.5 mg/dL (8.5-10.5) 04/08/23 07:10 Digoxin 0.6 ng/mL (0.6-1.2) 04/08/23 07:10 EKG Data EKG 1: EKG interpretation date: 04/08/23 EKG interpretation time: 07:16 Interpretation: Atrial fibrillation rapid ventricular response with a rate of 102 right bundle branch block present Q waves V1 and V2. Unchanged from previous EKG 03/18/2023 Discharge Plan Discharge Patient Disposition: Home Clinical Impression: Closed head injury, Fall against object Condition: Stable Prescriptions: No Action nitroglycerin [Nitrostat] 0.4 mg tablet, sublingual 0.4 mg SUBLINGUAL Q5M PRN (Reason: Chest Pain) Qty: 30 3RF Rx Instructions: MAX 3 DOSES PER EPISODE hydrocodone-acetaminophen 7.5-325 mg tablet 1 tab PO TID PRN (Reason: pain) 30 Days Qty: 90 0RF levothyroxine [Euthyrox] 150 mcg tablet 150 mcg PO QAM calcium carbonate [Calcium 600] 600 mg calcium (1,500 mg) tablet 600 mg PO DAILY mupirocin 2 % ointment 1 applic topical BID Qty: 22 1RF Rx Instructions: Apply to affected area(s) until healed Humalog U-100 Insulin 100 unit/mL cartridge 60 unit SUBCUT BID Rx Instructions: 55 units qam and 35 units qpm ketoconazole 2 % cream 1 applic topical BID Qty: 60 3RF Rx Instructions: Apply to affected areas in skin folds x 3 weeks then prn for flares Humira Pen 40 mg/0.8 mL pen injector kit 40 mg SUBCUT Q14D Qty: 2 3RF Hold Instructions: Resume on 08/02/21. Rx Instructions: TAKES ON SATURDAYS EVERY 14 DAYS folic acid 1 mg tablet 1 mg PO DAILY@08 Qty: 90 1RF methotrexate sodium 2.5 mg tablet 15 mg PO Q7D Qty: 90 0RF Rx Instructions: ON SATURDAYS duloxetine 60 mg capsule,delayed release(DR/EC) 60 mg PO DAILY@08 Qty: 120 0RF sulfasalazine 500 mg tablet See Rx Instructions .ROUTE .COMPLEX Qty: 60 0RF Dose Instruction: TAKE ONE TABLET BY MOUTH TWICE DAILY @ 9AM & 5PM Rx Instructions: TAKE ONE TABLET BY MOUTH TWICE DAILY @ 9AM & 5PM diltiazem HCl [DILT-XR] 180 mg capsule,ext.rel 24h degradable 180 mg PO DAILY Qty: 100 3RF metoprolol tartrate 50 mg tablet 75 mg PO BID Qty: 180 3RF potassium chloride 20 mEq tablet extended release 20 meq PO BID Qty: 180 3RF atorvastatin 80 mg tablet 80 mg PO BEDTIME Qty: 100 3RF hydralazine 10 mg tablet 10 mg PO TID Qty: 270 3RF digoxin 125 mcg (0.125 mg) tablet 125 mcg PO DIRECTED Qty: 75 3RF Rx Instructions: Alternate 1/2 Tab daily, next day 1 tab lisinopril 40 mg tablet 40 mg PO QPM Qty: 30 0RF Hold Instructions: Resume on 12/01/21. Rx Instructions: 1 yr supply was sent to [facility] in February magnesium L-lactate 84 mg tablet extended release 84 mg PO BID Qty: 180 3RF furosemide 20 mg tablet 10 mg PO EVERY OTHER DAY Qty: 100 3RF acetaminophen [Arthritis Pain Reliever] 650 mg Tablet Extended Release 650 mg PO Q4H PRN (Reason: Pain) cholecalciferol (vitamin D3) [Vitamin D3] 25 mcg (1,000 unit) Tablet 2,000 unit PO DAILY@08 albuterol sulfate 2.5 mg /3 mL (0.083 %) Solution For Nebulization 2.5 mg inhalation TID PRN (Reason: Shortness Of Breath) albuterol sulfate 90 mcg/actuation Hfa Aerosol Inhaler 2 puff INHALATION Q6H PRN (Reason: Shortness Of Breath) docusate sodium [Stool Softener] 250 mg Capsule 250 mg PO BID cyanocobalamin (vitamin B-12) [Vitamin B-12] 500 mcg Tablet 500 mcg PO DAILY chlorpheniramine maleate [ChlorTabs] 4 mg Tablet See Rx Instructions .ROUTE .COMPLEX Rx Instructions: 4 mg orally TID THEN ALTERNATES WITH BENADRYL THEN NEXT DAY diphenhydramine HCl [Benadryl] 25 mg Capsule See Rx Instructions .ROUTE .COMPLEX Rx Instructions: 25MG PO TID THEN ALTERNATES WITH CHLORTAB THE NEXT DAY ferrous gluconate 324 mg (37.5 mg iron) tablet See Rx Instructions .ROUTE .COMPLEX Rx Instructions: ALTERNATE 1 TABLET DAILY WITH 2 TABLETS DAILY ferrous sulfate [FeroSul] 325 mg (65 mg iron) tablet See Rx Instructions .ROUTE .COMPLEX Rx Instructions: 325mg po on sun,mon,wed and fri insulin lispro 100 unit/mL insulin pen See Rx Instructions .ROUTE .COMPLEX Rx Instructions: SLIDING SCALE before meals AND BEDTIME-MAX OF 40 UNITS PER DAY 150-200= 0 units 201-250= 2 units 251-300= 4 units 301-350= 6 units 351-400= 8 units pantoprazole 40 mg tablet,delayed release (DR/EC) 40 mg PO BID nystatin 100,000 unit/gram powder 1 applic topical DAILY Qty: 60 0RF Discharge Orders: Discharge ED (Routine); Ordered 04/08/23 Ordered By: Kenrick Treviño Referrals: Davion Griggs MD [Primary Care Provider] - Discharge Diet: Usual diet Discharge Activity: Increase activity as tolerated Patient Instructions: Opioid Safety, Pain Management Activity Restrictions/Additional Instructions: You are seen today after a fall CT of your head and neck do not show any acute changes. Continue same medications follow-up with primary care doctor as needed. Coding Level of Care Code ED Management Supervisor for Dougie Samson
--- NOTE | 2023-04-08 07:14 | CTR_ITS ---
PROCEDURE INFORMATION: Exam: CT Cervical Spine Without Contrast Exam date and time: 04/08/2023 7:34 AM Age: 72 years old Clinical indication: Injury or trauma; Fall; Blunt trauma; Additional info: Fall/neck pain/trauma TECHNIQUE: Imaging protocol: Computed tomography of the cervical spine without contrast. Radiation optimization: All CT scans at this facility use at least one of these dose optimization techniques: automated exposure control; mA and/or kV adjustment per patient size (includes targeted exams where dose is matched to clinical indication); or iterative reconstruction. REPORTING DATA: Count of CT and Cardiac NM exams in prior 12 months: This patient has received 4 known CTs and 0 known cardiac nuclear medicine studies in the 12 months prior to the current study. COMPARISON: CT cervical spin wo con* [id number] 08/02/2021 1:53 AM RADIATION DOSE METRICS: Total DLP (mGy-cm): 899.9 FINDINGS: Bones/joints: Mild broad-based cervical kyphosis is likely positional or degenerative. No spondylolisthesis. Vertebral body height is maintained. There is moderate degenerative disc disease in the cervical spine. There is mild multilevel facet spondylosis. No acute fracture. No severe spinal stenosis. Brain: The visible portion of the brain is normal. Lungs: Lung apices are clear. Vasculature: There is mild atherosclerotic disease of the carotid arteries bilaterally. Soft tissues: Soft tissues in the neck and thoracic inlet are unremarkable. CT/CT cervical spin wo con* [id number] IMPRESSION: No acute fracture.
--- NOTE | 2023-04-08 07:16 | ECG_ITS ---
[facility] Test Date: 2023-04-08 Pat Name: Myesha Parker Department: Room: Gender: Female Return Clerk: : 1950 Requested By: Kenrick Al Order Number: [id number] Wilbur MD: Min Tipton M.D. Measurements Intervals [place] Rate: 102 P: 0 OH: 0 QRS: -86 QRSD: 150 T: 74 QT: 337 QTc: 440 Interpretive Statements ATRIAL FIBRILLATION WITH RAPID VENTRICULAR RESPONSE RIGHT BUNDLE BRANCH BLOCK [120+ ms QRS DURATION, UPRIGHT V1, 40+ ms S IN I/aVL/V4/V5/V6] LEFT ANTERIOR FASCICULAR BLOCK [QRS AXIS <= -45, QR IN I, RS IN II] VOLTAGE CRITERIA FOR LVH [MEETS CRITERIA IN ONE OF: R(aVL), S(V1), R(V5), R(V5/V6)+S(V1)] POSSIBLE SEPTAL MYOCARDIAL INFARCTION , OF INDETERMINATE AGE [30 ms Q WAVE IN V1/V2] Compared to ECG 03/18/2023 20:45:02 Left ventricular hypertrophy now present Myocardial infarct finding still present Electronically Signed On 04-08-2023 11:31:05 CDT by Min Tipton M.D. [id number]
[2023-04-08 07:24] LABS: Basophils # 0.1 10^3/uL (0.0-0.1); Basophils % 0.6 %; Eosinophils # 0.1 10^3/uL (0.0-0.8); Eosinophils % 1.1 %; Lymphocytes # 1.5 10^3/uL (0.8-4.8); Lymphocytes % 17.2 %; Mean Corpuscular HGB Conc 32.4 g/dL (30.0-36.0); Mean Corpuscular Volume 102.1 fl (81-99); Mean Platelet Volume 9.3 fL (7.4-10.4); Monocytes # 0.9 10^3/uL (0.2-0.9); Monocytes % 11.1 %; Neutrophils # 5.74 10^3/uL (1.8-7.7); Neutrophils % 67.6 %; Nucleated Red Blood Cells % 0 %; Platelet Count 234 10^3/cmm (130-400); Red Blood Count 3.33 10^6/uL (4.1-5.3); Red Cell Distribution Width 14.9 % (12.1-15.1); White Blood Count 8.5 10^3/uL (4.0-10.0)
[2023-04-08 07:44] LABS: Anion Gap 13.7 (5-19); Blood Urea Nitrogen 34 mg/dL (8-23); Calcium 9.5 mg/dL (8.5-10.5); Carbon Dioxide 36 mmol/L (22-29); Chloride 94 mmol/L (98-107); Glucose 252 mg/dL (65-115); Osmolality Calculated 306 mOsm/kg (285-295); Potassium 3.7 mmol/L (3.5-5.1); Sodium 140 mmol/L (136-145)
[2023-04-08 07:45] LABS: Digoxin 0.6 ng/mL (0.6-1.2)
[2023-04-08 07:48] VITALS: BP 146/80; PULSE 89; RESP 18; O2SAT 97
== END 2023-04-08 08:32 | disposition home or self-care (01) ==
PROVIDERS: Emergency Provider Family Medicine; PCP Family Medicine
DX: S09.90XA Unspecified injury of head, initial encounter (principal); D64.9 Anemia, unspecified; W18.31XA Fall on same level due to stepping on an object, initial encounter
CPT/HCPCS: 70450; 72125; 80048; 80162; 85025; 93005; 99285

== ENCOUNTER 2023-04-17 09:56 | Emergency (ER) | payer MEDICARE, SELFPAY ==
[2023-04-17] VITALS (48 sets, daily range): BP systolic 109–144; BP diastolic 71–110; PULSE 93–113; RESP 16–34; TEMP 37.1; O2SAT 82–100; BMI 36.6
--- NOTE | 2023-04-17 10:07 | CT_ITS ---
WS: [id number] CT ABDOMEN PELVIS TECHNIQUE: Noncontrast CT of the abdomen and pelvis with coronal and sagittal reformatted images. CLINICAL INFORMATION: Abdominal pain COMPARISON: 11/10/2022 DLP: 962.[address] scans at [facility] use at least one of these dose optimization techniques: automated e xposure control; mA and/or kV adjustment per patient size (includes targeted exams where dose is matc hed to clinical indication); or iterative reconstruction. FINDINGS: Mild thoracolumbar curve. Tiny RIGHT and trace LEFT pleural fluid. Slight bibasal atelectas is. Advanced spondylitic changes lumbar spine similar to previous. Cirrhotic liver. Cholecystectomy. Small esophageal hiatal hernia. Noncontrast spleen appears normal. Adrenal glands are normal. Bilateral renal cortical scarring. Small LEFT renal cortical cysts. No hyd ronephrosis in either kidney. No obstructing renal or ureteral calculi. Fatty atrophy of the pancreas . Splenic artery calcification. Normal caliber abdominal aorta. Moderate aortic calcification. Normal sigmoid colon. No evidence of high-grade small or large bowel obstruction. Prior hysterectomy. IMPRESSION: 1. No acute traumatic findings in the abdomen or pelvis. 2. Cirrhotic liver. 3. Small RIGHT and trace LEFT pleural fluid. 4. Prior cholecystectomy and hysterectomy.
--- NOTE | 2023-04-17 10:07 | XR_ITS ---
WS: [id number] EXAMINATION: XR chest 1V portable [id number] REASON FOR EXAM: dyspnea/cough COMPARISON: 03/18/2023 ORDER DATE: 04/17/2023 10:12 AM FINDINGS: The lungs are clear of infiltrate. The cardiac and mediastinal outlines are unremarkable except fo r mild atherosclerotic aortic change. There are no significant pleural effusions . No significant abn ormalities are noted in the spine or remainder of the bony thorax. IMPRESSION: NO ACUTE PULMONARY CHANGE.
--- NOTE | 2023-04-17 10:08 | ECG_ITS ---
[facility] Test Date: 2023-04-17 Pat Name: Myesha Parker Department: Room: Gender: Female Song Lyricist: : 1950 Requested By: Kenrick Al Order Number: [id number] Wilbur MD: Keisha Coronel M.D. Measurements Intervals [place] Rate: 112 P: 0 TN: 0 QRS: -83 QRSD: 154 T: 79 QT: 342 QTc: 468 Interpretive Statements ATRIAL FIBRILLATION WITH RAPID VENTRICULAR RESPONSE RIGHT BUNDLE BRANCH BLOCK [120+ ms QRS DURATION, UPRIGHT V1, 40+ ms S IN I/aVL/V4/V5/V6] LEFT ANTERIOR FASCICULAR BLOCK [QRS AXIS <= -45, QR IN I, RS IN II] MODERATE VOLTAGE CRITERIA FOR LVH, CONSIDER NORMAL VARIANT [MEETS CRITERIA IN ONE OF: R(aVL), S(V1), R(V5), R(V5/V6)+S(V1)] POSSIBLE SEPTAL MYOCARDIAL INFARCTION , OF INDETERMINATE AGE [30 ms Q WAVE IN V1/V2] Compared to ECG 04/08/2023 07:16:00 No significant changes Electronically Signed On 04-18-2023 19:56:37 CDT by Keisha Coronel M.D. [id number]
--- NOTE | 2023-04-17 10:08 | CT_ITS ---
WS: [id number] CT HEAD TECHNIQUE: Noncontrast CT of the head obtained from the skullbase to the vertex. CLINICAL INFORMATION: trauma COMPARISON: 04/08/2023 DLP: 992.[address] scans at [facility] use at least one of these dose optimization techniques: automated e xposure control; mA and/or kV adjustment per patient size (includes targeted exams where dose is matc hed to clinical indication); or iterative reconstruction. FINDINGS: No evidence of intracranial hemorrhage or mass effect. Ventricular system and basal cisterns are boyle nt. Moderate small vessel changes with moderate parenchymal volume loss. No extra-axial fluid collect ions. No evidence of mass or mass effect. Mucosal thickening in the ethmoid air cells. Mastoid air cells are well aerated. Normal posterior lizabeth opharynx. Intracranial vascular calcification. Stable bilateral proptosis. IMPRESSION: 1. No evidence of intracranial hemorrhage or mass effect. 2. No acute intracranial findings.
[2023-04-17 10:21] LABS: ABG PCO2 55.9 mmHg (35-45); ABG PH Result 7.42 (7.35-7.45); Alveolar-Arterial Oxygen Gradi 5.7 mmHg (5-10); Arterial Blood Gas Hematocrit 29.1 % (37-47); Base Excess ABG 10.5 mmol/L (-2.0-2.0); Blood Gas Allen Test Pos; Blood Gas Operator Identificat CAK; Blood Gas Sample Site Radial, left; Blood Gas Sample Type Arterial; Carboxyhemoglobin 0.4 %THgb (0.4-20.1); HCO3 ABG 36.4 mmol/L (22-26); HGB O2 Sat 93.2 % (95-100); Ionized Calcium Level - ABG 1.2 mmol/L (1.1-1.4); Methemoglobin 1.1 % (0.4-1.5); Oxygen Device NC; Oxygen Saturation ABG 94.6; PO2 ABG 88.1 mmHg (80.0-100.0); Potassium Level - ABG 3.3 mmol/L (3.5-5.0); Total Hemoglobin 9.5 g/dL (12-16)
--- NOTE | 2023-04-17 10:27 | W.ED.AMS ---
HPI - Altered Mental Status General: Chief Complaint: Altered Mental Status Stated Complaint: Fall Time Seen by Provider: 04/17/23 09:59 Source: patient Mode of arrival: ambulatory History of Present Illness: 72-year-old female presents emergency room with altered mental status with nausea and vomiting after a fall do think she struck her head they are not sure when she actually fell. She was given 12-1/2 of Phenergan in route she was poorly responsive and confused when they first encountered her. She is normally on oxygen at home at 2 L/min. She is not on any oral anticoagulation. She has a history of multiple falls had seen her earlier this month with similar complaint. She is not able to contribute to history at this time. Moderately confused. MD complaint: altered mental status and confusion Onset (ago): unknown Context: trauma (fall) Review of Systems General: Reports: ROS unobtainable due to mental status Const: Denies: fever(s), chills, body aches, change in appetite, fatigue or malaise ENMT: Denies: throat pain, ear or mastoid pain, nasal discharge or nasal congestion Card: Denies: chest pain, edema, dyspnea on exertion or orthopnea Resp: Denies: dyspnea, productive cough or non-productive cough GI: Denies: abdominal pain, nausea, vomiting, hematemesis, coffee ground emesis, diarrhea, constipation, bloating, hematochezia or melena : Denies: flank pain, difficulty voiding, dysuria, urinary frequency or urinary urgency Skin/Breast: Denies: rash or pruritus PFS ED PFSH: Medical History Anxiety and depression CHF exacerbation Chronic knee pain Chronic low back pain COPD (chronic obstructive pulmonary disease) Oxygen dependent, 2 L at baseline Coronary artery disease COVID-14 August 2020 Duodenal ulcer due to bacteria Fibromyalgia High risk medication use Hyperlipidemia Hypertension Hypothyroidism Immunization counseling Inflammatory arthritis Intermittent atrial fibrillation Left renal mass Liver cirrhosis Low back pain of over 3 months duration Lung nodule Major depressive disorder, recurrent episode, moderate with anxious distress Narrow complex tachycardia Osteoarthritis of knees, bilateral Poorly controlled diabetes mellitus Psychiatric care Recurrent UTI Seronegative rheumatoid arthritis of both hands Unstable angina Urgency incontinence UTI (urinary tract infection) Surgical History History of cardiac cath History of cholecystectomy History of hysterectomy History of knee replacement History of thyroid surgery Family History Other CAD (coronary artery disease) Cancer Denies family history of Anesthesia complication Bleeding disorder Social History Smoking and tobacco status: former smoker Quit status (tobacco): has quit using tobacco Year quit tobacco: 2005 Second hand smoke exposure: No Alcohol intake: never Substance/Drug Use: never Adopted: No Caregiver/support person: No Lives independently: No Household members: spouse Marital status: Current occupational status: retired Current gender identity: Female Physical Exam Const: GENERAL APPEARANCE: cooperative and comfortable ORIENTATION/CONSCIOUSNESS: Yes awake HENMT: COMMON NORMALS: normocephalic, atraumatic, hearing grossly normal bilaterally and external ears normal HEAD & SCALP: normocephalic and atraumatic EXTERNAL EAR: Yes external ears normal Neck/C-Spine: COMMON NORMALS: no lymphadenopathy, supple and no JVD Lymph: LYMPHATIC: no lymphadenopathy noted and no lymphedema noted Resp: COMMON NORMALS: normal respiratory effort, No retractions and No use of accessory muscles AUSCULTATION: rhonchi and wheezes Cardio: COMMON NORMALS: no JVD RATE: tachycardic RHYTHM: abnormal rhythm irregularly irregular GI: COMMON NORMALS: No hepatosplenomegaly present AUSCULTATION: Yes normoactive bowel sounds PALPATION: Yes Tenderness to palpation present (GI), No Guarding due to palpation present (GI) and Yes No hepatosplenomegaly present Extremity: COMMON NORMALS: normal to inspection, capillary refill normal and no calf tenderness GENERAL: Yes edema Skin: COMMON NORMALS: no rashes or lesions noted GENERAL SKIN EXAM: no rashes or lesions noted Course Vital Signs: Vital signs: Vital Signs Temperature 98.8 F 04/17/23 10:01 Pulse Rate 110 H 04/17/23 14:05 Respiratory Rate 18 04/17/23 12:51 Blood Pressure 124/71 04/17/23 14:15 Pulse Oximetry 95 04/17/23 14:10 Oxygen Delivery Me thod Nasal Cannula 04/17/23 12:51 Oxygen Flow Rate 2 04/17/23 12:51 Fraction of Inspir ed Oxygen 35 04/17/23 12:45 MDM - Altered Mental Status Medical Decision Making arrived later in the visit. Patient awoke around 530 this morning and was her normal self fully functional left for work around 630. She called between 930 and 10 was slurring her words reported she had fallen by the time he got home she was vomiting EMS was called he was vomiting violently in route. Initial CT no bleed she does have a history of A-fib previously been on anticoagulation which was stopped because of frequent falls anemia and GI bleed. CTA of the head and neck shows top of the basilar artery embolism. Discussed with Dr. Medina she says they may do an embolectomy we contacted [facility] they are willing to take her and attempt embolectomy. Contacted neurology at [facility] they reviewed the films and interventionalists think they may be able to intervene with this clot we will transfer via air ambulance discussed with at bedside he is agreeable. This is an ER to ER transfer Dr. Diaz will be excepting it emergency room [facility]. Medical Records I reviewed the patient's medical records. Lab Data I reviewed the patient's lab results. 04/17/23 10:15 04/17/23 10:15 Laboratory Results WBC 5.4 10^3/uL (4.0-10.0) 04/17/23 10:15 RBC 2.82 10^6/uL (4.1-5.3) L 04/17/23 10:15 Hgb 9.3 g/dL (11.5-15.3) L 04/17/23 10:15 Hct 28.9 % (37.0-47.0) L 04/17/23 10:15 MCV 102.5 fl (81-99) H 04/17/23 10:15 MCH 33.0 pg (28.0-34.0) 04/17/23 10:15 MCHC 32.2 g/dL (30.0-36.0) 04/17/23 10:15 RDW 14.6 % (12.1-15.1) 04/17/23 10:15 Plt Count 171 10^3/cmm (130-400) 04/17/23 10:15 MPV 9.1 fL (7.4-10.4) 04/17/23 10:15 Neut % (Auto) 75.4 % 04/17/23 10:15 Lymph % (Auto) 15.6 % 04/17/23 10:15 [place] % (Auto) 6.3 % 04/17/23 10:15 Eos % (Auto) 1.7 % 04/17/23 10:15 Baso % (Auto) 0.4 % 04/17/23 10:15 Neut # (Auto) 4.05 10^3/uL (1.8-7.7) 04/17/23 10:15 Lymph # (Auto) 0.8 10^3/uL (0.8-4.8) 04/17/23 10:15 [place] # (Auto) 0.3 10^3/uL (0.2-0.9) 04/17/23 10:15 Eos # (Auto) 0.1 10^3/uL (0.0-0.8) 04/17/23 10:15 Baso # (Auto) 0.0 10^3/uL (0.0-0.1) 04/17/23 10:15 Nucleated RBC % (auto) 0 % 04/17/23 10:15 Nucleated RBCs # 0.0 /100WBC 04/17/23 10:15 PT 12.50 SECONDS (12.1-14.9) 04/17/23 10:15 INR 0.91 (0.8-1.2) 04/17/23 10:15 APTT 24.0 SECONDS (23.9-36.7) 04/17/23 10:15 Specimen Type Arterial 04/17/23 10:10 Sample Site Radial, left 04/17/23 10:10 ABG pH 7.42 (7.35-7.45) 04/17/23 10:10 ABG pCO2 55.9 mmHg (35-45) H 04/17/23 10:10 ABG pO2 88.1 mmHg (80.0-100.0) 04/17/23 10:10 ABG HCO3 36.4 mmol/L (22-26) H 04/17/23 10:10 ABG O2 Saturation 94.6 04/17/23 10:10 ABG Base Excess 10.5 mmol/L (-2.0-2.0) H 04/17/23 10:10 Memo Test Pos 04/17/23 10:10 A-a O2 Gradient 5.7 mmHg (5-10) 04/17/23 10:10 Hematocrit 29.1 % (37-47) L 04/17/23 10:10 Hgb O2 Saturation 93.2 % (95-100) L 04/17/23 10:10 Carboxyhemoglobin 0.4 %THgb (0.4-20.1) 04/17/23 10:10 Methemoglobin 1.1 % (0.4-1.5) 04/17/23 10:10 Total Hemoglobin 9.5 g/dL (12-16) L 04/17/23 10:10 Sodium 143.0 mmol/L (131-143) 04/17/23 10:10 Potassium 3.3 mmol/L (3.5-5.0) L 04/17/23 10:10 Glucose 246.0 mg/dL (70-115) H 04/17/23 10:10 Ionized Calcium 1.2 mmol/L (1.1-1.4) 04/17/23 10:10 O2 Delivery Device Nc 04/17/23 10:10 O2 Liters/Min 2.0 % 04/17/23 10:10 FiO2 28.0 % 04/17/23 10:10 Senior Benefits Analyst ID Cak 04/17/23 10:10 Sodium 141 mmol/L (136-145) 04/17/23 10:15 Potassium 3.3 mmol/L (3.5-5.1) L 04/17/23 10:15 Chloride 98 mmol/L (98-107) 04/17/23 10:15 Carbon Dioxide 33 mmol/L (22-29) H 04/17/23 10:15 Anion Gap 13.3 (5-19) 04/17/23 10:15 BUN 21 mg/dL (8-23) 04/17/23 10:15 Creatinine 0.9 mg/dL (0.5-0.9) 04/17/23 10:15 GFR Calculation Not Reportable 04/17/23 10:15 Glucose 228 mg/dL (65-115) H 04/17/23 10:15 Calculated Osmolality 302 mOsm/kg (285-295) H 04/17/23 10:15 Lactic Acid 2.5 mmol/L (0.5-2.2) H 04/17/23 10:15 Lactic Acid (Sepsis) 2.5 mmol/L (0.5-2.2) H 04/17/23 12:22 Calcium 9.1 mg/dL (8.5-10.5) 04/17/23 10:15 Total Bilirubin 0.3 mg/dL (0.15-1.2) 04/17/23 10:15 AST 27 U/L (0-32) 04/17/23 10:15 ALT 27 U/L (0-33) 04/17/23 10:15 Alkaline Phosphatase 126 U/L (35-105) H 04/17/23 10:15 Creatine Kinase 38 U/L (26-192) 04/17/23 10:15 Troponin T Baseline 22 ng/L (0-10) H 04/17/23 10:15 Troponin T 120 Minute 21.94 ng/L (0-10) H 04/17/23 12:22 Delta Troponin T -0.06 ABS# (0-10) L 04/17/23 12:22 Total Protein 5.7 g/dL (6.6-8.7) L 04/17/23 10:15 Albumin 3.3 g/dL (3.5-5.2) L 04/17/23 10:15 Globulin 2.4 g/dL (1.3-4.6) 04/17/23 10:15 Urine Color Yellow (Yellow) 04/17/23 11:43 Urine Appearance Clear (CLEAR) 04/17/23 11:43 Urine pH 7 (5-7) 04/17/23 11:[address] 1.005 (1.005-1.030) 04/17/23 11:43 Urine Protein 1+ (Negative) H 04/17/23 11:43 Urine Glucose (UA) Trace (Normal) H 04/17/23 11:43 Urine Ketones Negative (Negative) 04/17/23 11:43 Urine Blood Neg (Negative) 04/17/23 11:43 Urine Nitrate Negative (Negative) 04/17/23 11:43 Urine Bilirubin Neg (Negative) 04/17/23 11:43 Urine Urobilinogen Norm mg/dL (Negative) 04/17/23 11:43 Ur Leukocyte Esterase Negative (Negative) 04/17/23 11:43 Urine RBC 0-4 /hpf (0-2) H 04/17/23 11:43 Urine WBC 0-4 /hpf (0-5) H 04/17/23 11:43 Ur Squamous Epith Cells 0-4 /hpf (0-5) H 04/17/23 11:43 Amorphous Sediment Not Reportable 04/17/23 11:43 Urine Bacteria None /hpf (NONE) 04/17/23 11:43 Serum Ketones Negative (Negative) 04/17/23 10:15 Critical Care Time Critical Care Time: Critical Care Time: Yes Total Critical Care Time: 45 Attestation: The high probability of a clinically significant, sudden or life threatening deterioration of the patient's neurologic system(s) required my full and direct attention, intervention and personal management. The critical care time is as shown. 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 Condition: Stable Prescriptions: No Action nitroglycerin [Nitrostat] 0.4 mg tablet, sublingual 0.4 mg SUBLINGUAL Q5M PRN (Reason: Chest Pain) Qty: 30 3RF Rx Instructions: MAX 3 DOSES PER EPISODE hydrocodone-acetaminophen 7.5-325 mg tablet 1 tab PO TID PRN (Reason: pain) 30 Days Qty: 90 0RF levothyroxine [Euthyrox] 150 mcg tablet 150 mcg PO QAM calcium carbonate [Calcium 600] 600 mg calcium (1,500 mg) tablet 600 mg PO DAILY mupirocin 2 % ointment 1 applic topical BID Qty: 22 1RF Rx Instructions: Apply to affected area(s) until healed ketoconazole 2 % cream 1 applic topical BID Qty: 60 3RF Rx Instructions: Apply to affected areas in skin folds x 3 weeks then prn for flares Humira Pen 40 mg/0.8 mL pen injector kit 40 mg SUBCUT Q14D Qty: 2 3RF Hold Instructions: Resume on 08/02/21. Rx Instructions: TAKES ON SATURDAYS EVERY 14 DAYS folic acid 1 mg tablet 1 mg PO DAILY@08 Qty: 90 1RF methotrexate sodium 2.5 mg tablet 15 mg PO Q7D Qty: 90 0RF Rx Instructions: ON SATURDAYS duloxetine 60 mg capsule,delayed release(DR/EC) 60 mg PO DAILY@08 Qty: 120 0RF sulfasalazine 500 mg tablet See Rx Instructions .ROUTE .COMPLEX Qty: 60 0RF Dose Instruction: TAKE ONE TABLET BY MOUTH TWICE DAILY @ 9AM & 5PM Rx Instructions: TAKE ONE TABLET BY MOUTH TWICE DAILY @ 9AM & 5PM diltiazem HCl [DILT-XR] 180 mg capsule,ext.rel 24h degradable 180 mg PO DAILY Qty: 100 3RF metoprolol tartrate 50 mg tablet 75 mg PO BID Qty: 180 3RF potassium chloride 20 mEq tablet extended release 20 meq PO BID Qty: 180 3RF atorvastatin 80 mg tablet 80 mg PO BEDTIME Qty: 100 3RF hydralazine 10 mg tablet 10 mg PO TID Qty: 270 3RF digoxin 125 mcg (0.125 mg) tablet 125 mcg PO DIRECTED Qty: 75 3RF Rx Instructions: Alternate 1/2 Tab daily, next day 1 tab lisinopril 40 mg tablet 40 mg PO QPM Qty: 30 0RF Hold Instructions: Resume on 12/01/21. Rx Instructions: 1 yr supply was sent to [facility] in February magnesium L-lactate 84 mg tablet extended release 84 mg PO BID Qty: 180 3RF acetaminophen [Arthritis Pain Reliever] 650 mg Tablet Extended Release 650 mg PO Q4H PRN (Reason: Pain) cholecalciferol (vitamin D3) [Vitamin D3] 25 mcg (1,000 unit) Tablet 2,000 unit PO DAILY@08 albuterol sulfate 2.5 mg /3 mL (0.083 %) Solution For Nebulization 2.5 mg inhalation TID PRN (Reason: Shortness Of Breath) albuterol sulfate 90 mcg/actuation Hfa Aerosol Inhaler 2 puff INHALATION Q6H PRN (Reason: Shortness Of Breath) docusate sodium [Stool Softener] 250 mg Capsule 250 mg PO BID cyanocobalamin (vitamin B-12) [Vitamin B-12] 500 mcg Tablet 500 mcg PO DAILY chlorpheniramine maleate [ChlorTabs] 4 mg Tablet See Rx Instructions .ROUTE .COMPLEX Rx Instructions: 4 mg orally TID THEN ALTERNATES WITH BENADRYL THEN NEXT DAY diphenhydramine HCl [Benadryl] 25 mg Capsule See Rx Instructions .ROUTE .COMPLEX Rx Instructions: 25MG PO TID THEN ALTERNATES WITH CHLORTAB THE NEXT DAY ferrous gluconate 324 mg (37.5 mg iron) tablet See Rx Instructions .ROUTE .COMPLEX Rx Instructions: ALTERNATE 1 TABLET DAILY WITH 2 TABLETS DAILY insulin lispro 100 unit/mL insulin pen See Rx Instructions .ROUTE .COMPLEX Rx Instructions: SLIDING SCALE before meals AND BEDTIME-MAX OF 40 UNITS PER DAY 150-200= 0 units 201-250= 2 units 251-300= 4 units 301-350= 6 units 351-400= 8 units pantoprazole 40 mg tablet,delayed release (DR/EC) 40 mg PO BID nystatin 100,000 unit/gram powder 1 applic topical DAILY Qty: 60 0RF sucralfate 1 gram tablet 1 g PO TID Humulin 70/30 U-100 Insulin 100 unit/mL (70-30) suspension See Rx Instructions .ROUTE .COMPLEX Rx Instructions: INJECT 60 UNITS SUB Q IN THE AM AND 40 UNITS IN THE PM. tramadol 50 mg tablet 50 mg PO Q4H PRN (Reason: Pain) pyridostigmine bromide 60 mg tablet 60 mg PO .9AM furosemide 20 mg tablet 10 mg PO DAILY Referrals: Davion Griggs MD [Primary Care Provider] - Patient Instructions: Hyponatremia (ED), Benzodiazepine Use Disorder (ED), Dementia (ED), Non-diabetic Hypoglycemia (ED), Hypoglycemia in a Person with Diabetes (ED), Concussion (ED), Alcohol Intoxication (ED), Subarachnoid Hemorrhage (GEN), Altered Mental Status (ED) Coding Level of Care Code ED Plastic Surgery Technician for Dougie Samson NIH stroke score NIHSS Level Of Consciousness - 1a: 1 Level Of Consciousness Questions - 1b: Neither Correct Level Of Consciousness Commands - 1c: Neither Correct Best Gaze - 2: Normal Visual Morris - 3: No Visual Loss Facial Palsy - 4: Normal Motor Arm Right - 5: No Drift Motor Arm Left - 5: No Drift Motor Leg Right - 6: No Drift Motor Leg Left - 6: No Drift Limb Ataxia - 7: Present In Two Limbs Sensory - 8: Normal Best Language - 9: Mild/Moderate Aphasia Dysarthia - 10: Severe Dysarthia Extinction And Inattention - 11: 0 Score Total Score: 10
[2023-04-17 10:28] LABS: Basophils % 0.4 %; Eosinophils # 0.1 10^3/uL (0.0-0.8); Eosinophils % 1.7 %; Hematocrit 28.9 % (37.0-47.0); Hemoglobin 9.3 g/dL (11.5-15.3); Lymphocytes # 0.8 10^3/uL (0.8-4.8); Lymphocytes % 15.6 %; Mean Corpuscular HGB Conc 32.2 g/dL (30.0-36.0); Mean Corpuscular Volume 102.5 fl (81-99); Mean Platelet Volume 9.1 fL (7.4-10.4); Monocytes # 0.3 10^3/uL (0.2-0.9); Monocytes % 6.3 %; Neutrophils # 4.05 10^3/uL (1.8-7.7); Neutrophils % 75.4 %; Nucleated Red Blood Cells % 0 %; Platelet Count 171 10^3/cmm (130-400); Red Blood Count 2.82 10^6/uL (4.1-5.3); Red Cell Distribution Width 14.6 % (12.1-15.1); White Blood Count 5.4 10^3/uL (4.0-10.0)
[2023-04-17 10:45] LABS: Lactic Sepsis W/Reflex 2.5 mmol/L (0.5-2.2)
[2023-04-17 10:50] LABS: Ketone (Acetest) Serum Negative (Negative)
[2023-04-17 10:55] LABS: Alanine Aminotransferase 27 U/L (0-33); Albumin Level 3.3 g/dL (3.5-5.2); Alkaline Phosphatase 126 U/L (35-105); Anion Gap 13.3 (5-19); Aspartate Amino Transferase 27 U/L (0-32); Blood Urea Nitrogen 21 mg/dL (8-23); Calcium 9.1 mg/dL (8.5-10.5); Carbon Dioxide 33 mmol/L (22-29); Chloride 98 mmol/L (98-107); Creatine Phosphokinase 38 U/L (26-192); Globulin 2.4 g/dL (1.3-4.6); Glucose 228 mg/dL (65-115); Osmolality Calculated 302 mOsm/kg (285-295); Potassium 3.3 mmol/L (3.5-5.1); Sodium 141 mmol/L (136-145); Total Bilirubin 0.3 mg/dL (0.15-1.2); Total Protein 5.7 g/dL (6.6-8.7)
[2023-04-17 10:56] LABS: Troponin(5th) Baseline 22 ng/L (0-10)
[2023-04-17] MEDS: ondansetron 2 mg/ML SDV 2 mL 4 MG IVP (10:57)
--- NOTE | 2023-04-17 10:59 | CT_ITS ---
WS: [id number] CTA HEAD AND NECK TECHNIQUE: Contrast enhanced CTA of the head and neck with coronal and sagittal reformatted images an d maximum intensity projection (MIP) images. NASCET criteria utilized. CLINICAL INFORMATION: nausea vomitting, AMS, ppossible posterior CVA COMPARISON: CTA 11/27/2021 DLP: 569.[address] scans at [facility] use at least one of these dose optimization techniques: automated e xposure control; mA and/or kV adjustment per patient size (includes targeted exams where dose is matc hed to clinical indication); or iterative reconstruction. FINDINGS: Acute appearing filling defect compatible with thrombus at the tip of the basilar measuring 4 mm. This is new since the prior CTA. Persistent normal vascularity to the QUARTZ CUTTER territories bilatera lly with mild atheromatous disease. Patent RIGHT posterior communicating artery. Both ICAs are patent at the skull base. Dense cavernous carotid calcification. Patent anterior commun icating artery. Normal vascularity to the PEYMAN and MCA territories bilaterally. RIGHT: RIGHT common carotid artery is patent. Markedly tortuous RIGHT cervical ICA with retropharynge al course. Proximal ICA not well visualized due to swallowing artifact and medial deviation. Distal R IGHT ICA is patent at the skull base. LEFT: LEFT common carotid artery is patent. Mild atheromatous plaque LEFT carotid bulb extending into the ICA. No significant LEFT ICA stenosis. LEFT ICA is patent to the skull base. Moderate spondylitic changes cervical spine with mild central canal stenosis C4-C6. IMPRESSION: 1. Tip of the basilar thrombus is new from the prior examinations. 2. Persistent vascularity to the QUARTZ CUTTER territory bilaterally. Patent RIGHT posterior communicating art raysa. 3. Both ICAs are patent at the skull base. Cavernous carotid calcification. 4. Mid RIGHT ICA not well visualized due to swallowing artifact and marked retropharyngeal course. S tenosis cannot be evaluated. CTA could be repeated for better assessment when patient is stable. RIGH T ICA is patent at the skull base. 5. No significant LEFT ICA stenosis. 6. No other acute findings Notified Kenrick Treviño DO at 04/17/2023 12:04 PM.
[2023-04-17] MEDS: iohexol 350 mg/mL 500 mL Btl (per mL) IV (11:31)
[2023-04-17] MEDS: piperacillin-tazobactam 3.375 GM in sodium chloride 0.9% (plus) 50 ML IV (11:43)
[2023-04-17] MEDS: LORazepam 2 mg/mL INJ 1 mL IVP (11:43)
[2023-04-17 12:07] LABS: Bilirubin Urine Neg (Negative); Blood Urine Neg (Negative); Glucose Urine UA Trace (Normal); Ketones Urine Negative (Negative); Leukocyte Esterase Urine Negative (Negative); Nitrate Urine Negative (Negative); Protein Urine 1+ (Negative); Specific Gravity, Urine 1.005 (1.005-1.030); Urine Appearance Clear (CLEAR); Urine Color Yellow (Yellow); Urobilinogen Urine Norm (Negative); pH Urine 7 (5-7)
[2023-04-17 12:08] LABS: Add Urine Culture? No; Add Urine Microscopic? YES; RBC Urine 0-4 /hpf (0-2); Squamous Epithelial Cell Urine 0-4 /hpf (0-5); WBC Urine 0-4 /hpf (0-5)
[2023-04-17 12:12] LABS: Reflex Lactate Order REFLEX LACTIC ORDERD
[2023-04-17] MEDS: heparin 5,000 unit/mL INJ 1 mL IV (12:27)
[2023-04-17] MEDS: heparin drip 25,000 UNIT/500 ML PREMIX 27.94 UNIT IV (12:29)
[2023-04-17 12:40] LABS: INR 0.91 (0.8-1.2)
[2023-04-17 12:53] LABS: Lactic Acid level (Lactate) 2.5 mmol/L (0.5-2.2)
[2023-04-17 12:54] LABS: Troponin 5 2HR 21.94 ng/L (0-10)
[2023-04-17 13:01] LABS: Troponin 5 2HR Delta -0.06 ABS# (0-10)
== END 2023-04-17 14:36 ==
PROVIDERS: Emergency Provider Family Medicine; PCP Family Medicine
DX: I63.12 Cerebral infarction due to embolism of basilar artery (principal)
CPT/HCPCS: 36415; 36600; 51702; 70450; 70496; 70498; 71045; 74176; 80051; 80053; 81001; 82009; 82330; 82550; 82805; 83605; 84484; 85025; 85610; 85730; 87040; 93005; 94660; 96374; 96375; 99291; J1644; J2060; J2405; J2543; Q9967

== ENCOUNTER 2023-06-06 13:02 | Emergency (ER) | payer MEDICARE, SELFPAY ==
[2023-06-06 13:04] VITALS: BP 148/113; PULSE 99; RESP 20; TEMP 36.8; O2SAT 100; BMI 35.7
--- NOTE | 2023-06-06 13:08 | XRR_ITS ---
PROCEDURE INFORMATION: Exam: XR Chest Exam date and time: 06/06/2023 1:20 PM Age: 72 years old Clinical indication: Shortness of breath; Prior surgery; Surgery date: 6+ months; Patient HX: HX of thyroid cancer; Additional info: SOB TECHNIQUE: Imaging protocol: Radiologic exam of the chest. Views: 1 view. COMPARISON: CR XR chest 1V portable [id number] 03/18/2023 6:28 PM FINDINGS: Lungs: Bibasilar hazy opacities. Pleural spaces: Blunting of the right costophrenic angle. No large pneumothorax. Heart/Mediastinum: Cardiomediastinal silhouette is midline and partially obscured. Vasculature: Mild calcifications of the aortic knob. Diaphragm: Left hemidiaphragm is obscured. Bones/joints: Osseous structures are unchanged. XR/XR chest 1V portable [id number] IMPRESSION: 1. Small to moderate bilateral pleural effusions. 2. Probable pulmonary edema.
[2023-06-06 13:09] VITALS: BP 143/91; PULSE 97; RESP 24; O2SAT 93
--- NOTE | 2023-06-06 13:09 | ECG_ITS ---
[facility] Test Date: 2023-06-06 Pat Name: Myesha Parker Department: Room: Gender: Female Crystallographer: : 1950 Requested By: Leighton Ndiaye Order Number: [id number] Wilbur MD: Min Tipton M.D. Measurements Intervals [place] Rate: 102 P: 0 VT: 0 QRS: -81 QRSD: 146 T: 73 QT: 358 QTc: 468 Interpretive Statements ATRIAL FIBRILLATION WITH RAPID VENTRICULAR RESPONSE RIGHT BUNDLE BRANCH BLOCK [120+ ms QRS DURATION, UPRIGHT V1, 40+ ms S IN I/aVL/V4/V5/V6] LEFT ANTERIOR FASCICULAR BLOCK [QRS AXIS <= -45, QR IN I, RS IN II] Compared to ECG 04/17/2023 10:09:36 Myocardial infarct finding no longer present Electronically Signed On 06-06-2023 16:48:25 CDT by Min Tipton M.D. [id number]
--- NOTE | 2023-06-06 13:10 | W.ED.SOB ---
HPI - SOB/Dyspnea General: Chief Complaint: Shortness of Breath/Dyspnea Stated Complaint: SOB, CHEST PAIN Time Seen by Provider: 06/06/23 13:03 History of Present Illness: HPI Narrative: 72-year-old female presents with shortness of breath. Patient reports that she generally has some shortness of breath but was worse today especially when she got up to get lunch. She normally wears 3 L at home oxygen. Patient also complains of some chest pressure over the last couple days along with some tightness and difficulty taking a deep breath. Patient was recently sent home from [facility] where she was in rehab following a stroke for the last 3 weeks. Patient has not used her albuterol or inhalers for about a week. No reports of fevers, chills or other complaints. Patient was brought in by EMS. EMS reports that they gave her 324 of aspirin in route. Associated symptoms: Deny dizziness, fever(s), lightheadedness or palpitations Review of Systems Const: Denies: fever(s) or chills Card: Reports: other (chest tightness ); Denies: palpitations or lightheadedness Resp: Reports: dyspnea Skin/Breast: Denies: rash Neuro: Denies: headache(s) or dizziness PFS ED PFSH: Medical History Anxiety and depression CHF exacerbation Chronic knee pain Chronic low back pain COPD (chronic obstructive pulmonary disease) Oxygen dependent, 2 L at baseline Coronary artery disease COVID-14 August 2020 Duodenal ulcer due to bacteria Fibromyalgia High risk medication use Hyperlipidemia Hypertension Hypothyroidism Immunization counseling Inflammatory arthritis Intermittent atrial fibrillation Left renal mass Liver cirrhosis Low back pain of over 3 months duration Lung nodule Major depressive disorder, recurrent episode, moderate with anxious distress Narrow complex tachycardia Osteoarthritis of knees, bilateral Poorly controlled diabetes mellitus Psychiatric care Recurrent UTI Seronegative rheumatoid arthritis of both hands Unstable angina Urgency incontinence UTI (urinary tract infection) Surgical History History of cardiac cath History of cholecystectomy History of hysterectomy History of knee replacement History of thyroid surgery Family History Other CAD (coronary artery disease) Cancer Denies family history of Anesthesia complication Bleeding disorder Social History (Reviewed 08/22/23 @ 10:31 by EDEN Gaytan Smoking and tobacco/nicotine status: former use of tobacco/nicotine Quit status (tobacco/nicotine): has quit using Year quit tobacco: 2005 Second hand smoke exposure: No Alcohol intake: never Substance/Drug Use: never Adopted: No Caregiver/support person: No Lives independently: No Household members: spouse Marital status: Current occupational status: retired Current gender identity: Female Physical Exam Const: COMMON NORMALS: patient oriented x3 GENERAL APPEARANCE: other (morbid obese); not in distress and not ill appearing HENMT: COMMON NORMALS: normocephalic and hearing grossly normal bilaterally HEAD & SCALP: normocephalic Resp: COMMON NORMALS: No use of accessory muscles AUSCULTATION: diminished lung sounds diffuse Cardio: COMMON NORMALS: regular rate RATE: regular rate RHYTHM: abnormal rhythm irregularly irregular Extremity: COMMON NORMALS: normal to inspection Neuro: COMMON NORMALS: patient oriented x3 OTHER: mild decreased weakness, left Psych: COMMON NORMALS: mental status grossly normal, cooperative and speech normal SPEECH: Yes normal speech Course Vital Signs: Vital signs: Vital Signs Temperature 98.2 F 06/06/23 13:04 Pulse Rate 87 06/06/23 15:04 Respiratory Rate 18 06/06/23 14:53 Blood Pressure 143/91 06/06/23 13:09 Pulse Oximetry 97 06/06/23 14:53 Oxygen Delivery Me thod Nasal Cannula 06/06/23 14:53 Oxygen Flow Rate 4 06/06/23 14:53 MDM - SOB/Dyspnea Medical Decision Making Patient's diagnostic studies are reviewed and interpreted by me. Patient's labs are close to her baseline. She did have 2 EKGs that show atrial fibs which is known atrial for but she is currently on Cardizem and metoprolol. Patient x-ray shows some small pleural effusions and likely pulmonary edema. I will have her increase her Lasix to 40 mg daily for the next couple days. Patient oxygen is appropriate in the upper 90s on her normal 3 L oxygen. Patient does have some mild decrease in her hemoglobin which she should follow-up with her primary care provider for further evaluation. She is stable and discharged home. Medical Records I reviewed the patient's medical records. Lab Data I reviewed the patient's lab results. 06/06/23 13:18 06/06/23 13:18 Labs/Radiology: Radiology Impressions Chest X-Ray 06/06/23 13:08 IMPRESSION: 1. Small to moderate bilateral pleural effusions. 2. Probable pulmonary edema. Laboratory Results WBC 5.95 10^3/uL (3.29-11.43) 06/06/23 13:18 RBC 2.84 10^6/uL (3.85-5.65) L 06/06/23 13:18 Hgb 8.30 g/dL (11.27-16.99) L 06/06/23 13:18 Hct 27.6 % (36-47) L 06/06/23 13:18 MCV 97.2 fl (85-98) 06/06/23 13:18 MCH 29.2 pg (27-33) 06/06/23 13:18 MCHC 30.1 g/dL (30-55) 06/06/23 13:18 RDW 16.6 % (12.1-15.1) H 06/06/23 13:18 Plt Count 233 10^3/cmm (157-399) 06/06/23 13:18 MPV 9.1 fL (7.4-10.4) 06/06/23 13:18 Neut % (Auto) 75.8 % 06/06/23 13:18 Lymph % (Auto) 13.9 % 06/06/23 13:18 [place] % (Auto) 7.1 % 06/06/23 13:18 Eos % (Auto) 1.8 % 06/06/23 13:18 Baso % (Auto) 0.7 % 06/06/23 13:18 Neut # (Auto) 4.51 10^3/uL (1.8-7.7) 06/06/23 13:18 Lymph # (Auto) 0.8 10^3/uL (0.8-4.8) 06/06/23 13:18 [place] # (Auto) 0.4 10^3/uL (0.2-0.9) 06/06/23 13:18 Eos # (Auto) 0.1 10^3/uL (0.0-0.8) 06/06/23 13:18 Baso # (Auto) 0.0 10^3/uL (0.0-0.1) 06/06/23 13:18 Nucleated RBC % (auto) 0 % 06/06/23 13:18 Nucleated RBCs # 0.0 /100WBC 06/06/23 13:18 Sodium 140 mmol/L (136-145) 06/06/23 13:18 Potassium 4.2 mmol/L (3.5-5.1) 06/06/23 13:18 Chloride 97 mmol/L (98-107) L 06/06/23 13:18 Carbon Dioxide 36 mmol/L (22-29) H 06/06/23 13:18 Anion Gap 11.2 (5-19) 06/06/23 13:18 BUN 25 mg/dL (8-23) H 06/06/23 13:18 Creatinine 1.1 mg/dL (0.5-0.9) H 06/06/23 13:18 GFR Calculation Not Reportable 06/06/23 13:18 Glucose 186 mg/dL (65-115) H 06/06/23 13:18 Calculated Osmolality 299 mOsm/kg (285-295) H 06/06/23 13:18 Calcium 9.3 mg/dL (8.5-10.5) 06/06/23 13:18 Total Bilirubin 0.3 mg/dL (0.15-1.2) 06/06/23 13:18 AST 20 U/L (0-32) 06/06/23 13:18 ALT 17 U/L (0-33) 06/06/23 13:18 Alkaline Phosphatase 90 U/L (35-105) 06/06/23 13:18 Troponin T Baseline 25 ng/L (0-10) H 06/06/23 13:18 Troponin T 120 Minute 21.09 ng/L (0-10) H 06/06/23 15:15 Delta Troponin T -3.91 ABS# (0-10) L 06/06/23 15:15 Total Protein 5.8 g/dL (6.6-8.7) L 06/06/23 13:18 Albumin 3.8 g/dL (3.5-5.2) 06/06/23 13:18 Globulin 2.0 g/dL (1.3-4.6) 06/06/23 13:18 All radiology interpretation(s) finalized by discharge EKG Data EKG 1: I personally reviewed and interpreted this EKG as follows: EKG Interpretation Date: 06/06/23 EKG interpretation time: 13:05 Interpretation: Atrial fib with ventricular rate 102, QRS 146, with no acute ST changes. EKG 2: I personally reviewed and interpreted this EKG as follows: EKG Interpretation Date: 06/06/23 EKG interpretation time: 15:12 Interpretation: Atrial fib with ventricular rate 96, QRS 153. No changes from prior EKG. Discharge Plan Discharge Patient Disposition: Home Clinical Impression: Acute exacerbation of CHF (congestive heart failure), Anemia, Chronic atrial fibrillation Condition: Stable Prescriptions: No Action nitroglycerin [Nitrostat] 0.4 mg tablet, sublingual 0.4 mg SUBLINGUAL Q5M PRN (Reason: Chest Pain) Qty: 30 3RF Rx Instructions: MAX 3 DOSES PER EPISODE hydrocodone-acetaminophen 7.5-325 mg tablet 1 tab PO TID PRN (Reason: pain) 30 Days Qty: 90 0RF levothyroxine [Euthyrox] 150 mcg tablet 150 mcg PO QAM calcium carbonate [Calcium 600] 600 mg calcium (1,500 mg) tablet 600 mg PO DAILY mupirocin 2 % ointment 1 applic topical BID Qty: 22 1RF Rx Instructions: Apply to affected area(s) until healed ketoconazole 2 % cream 1 applic topical BID Qty: 60 3RF Rx Instructions: Apply to affected areas in skin folds x 3 weeks then prn for flares folic acid 1 mg tablet 1 mg PO DAILY@08 Qty: 90 1RF duloxetine 60 mg capsule,delayed release(DR/EC) 60 mg PO DAILY@08 Qty: 120 0RF sulfasalazine 500 mg tablet See Rx Instructions .ROUTE .COMPLEX Qty: 60 0RF Dose Instruction: TAKE ONE TABLET BY MOUTH TWICE DAILY @ 9AM & 5PM Rx Instructions: TAKE ONE TABLET BY MOUTH TWICE DAILY @ 9AM & 5PM diltiazem HCl [DILT-XR] 180 mg capsule,ext.rel 24h degradable 180 mg PO DAILY Qty: 100 3RF metoprolol tartrate 50 mg tablet 75 mg PO BID Qty: 180 3RF potassium chloride 20 mEq tablet extended release 20 meq PO BID Qty: 180 3RF atorvastatin 80 mg tablet 80 mg PO BEDTIME Qty: 100 3RF hydralazine 10 mg tablet 10 mg PO TID Qty: 270 3RF digoxin 125 mcg (0.125 mg) tablet 125 mcg PO DIRECTED Qty: 75 3RF Rx Instructions: Alternate 1/2 Tab daily, next day 1 tab lisinopril 40 mg tablet 40 mg PO QPM Qty: 30 0RF Hold Instructions: Resume on 12/01/21. Rx Instructions: 1 yr supply was sent to [facility] in February magnesium L-lactate 84 mg tablet extended release 84 mg PO BID Qty: 180 3RF methotrexate sodium 2.5 mg tablet 15 mg PO Q7D Qty: 90 0RF Rx Instructions: ON SATURDAYS Humira Pen 40 mg/0.8 mL pen injector kit See Rx Instructions .ROUTE .COMPLEX Qty: 2 1RF Hold Instructions: Resume on 08/02/21. Dose Instruction: INJECT 40 MG (0.8 ML) SUBCUTANEOUSLY EVERY 14 DAYS (TAKE ON SATURDAYS EVERY 14 DAYS) (BULK) Rx Instructions: INJECT 40 MG (0.8 ML) SUBCUTANEOUSLY EVERY 14 DAYS (TAKE ON SATURDAYS EVERY 14 DAYS) (BULK) acetaminophen [Arthritis Pain Reliever] 650 mg Tablet Extended Release 650 mg PO Q4H PRN (Reason: Pain) cholecalciferol (vitamin D3) [Vitamin D3] 25 mcg (1,000 unit) Tablet 2,000 unit PO DAILY@08 albuterol sulfate 2.5 mg /3 mL (0.083 %) Solution For Nebulization 2.5 mg inhalation TID PRN (Reason: Shortness Of Breath) albuterol sulfate 90 mcg/actuation Hfa Aerosol Inhaler 2 puff INHALATION Q6H PRN (Reason: Shortness Of Breath) docusate sodium [Stool Softener] 250 mg Capsule 250 mg PO BID cyanocobalamin (vitamin B-12) [Vitamin B-12] 500 mcg Tablet 500 mcg PO DAILY chlorpheniramine maleate [ChlorTabs] 4 mg Tablet See Rx Instructions .ROUTE .COMPLEX Rx Instructions: 4 mg orally TID THEN ALTERNATES WITH BENADRYL THEN NEXT DAY diphenhydramine HCl [Benadryl] 25 mg Capsule See Rx Instructions .ROUTE .COMPLEX Rx Instructions: 25MG PO TID THEN ALTERNATES WITH CHLORTAB THE NEXT DAY ferrous gluconate 324 mg (37.5 mg iron) tablet See Rx Instructions .ROUTE .COMPLEX Rx Instructions: ALTERNATE 1 TABLET DAILY WITH 2 TABLETS DAILY insulin lispro 100 unit/mL insulin pen See Rx Instructions .ROUTE .COMPLEX Rx Instructions: SLIDING SCALE before meals AND BEDTIME-MAX OF 40 UNITS PER DAY 150-200= 0 units 201-250= 2 units 251-300= 4 units 301-350= 6 units 351-400= 8 units pantoprazole 40 mg tablet,delayed release (DR/EC) 40 mg PO BID nystatin 100,000 unit/gram powder 1 applic topical DAILY Qty: 60 0RF sucralfate 1 gram tablet 1 g PO TID Humulin 70/30 U-100 Insulin 100 unit/mL (70-30) suspension See Rx Instructions .ROUTE .COMPLEX Rx Instructions: INJECT 60 UNITS SUB Q IN THE AM AND 40 UNITS IN THE PM. tramadol 50 mg tablet 50 mg PO Q4H PRN (Reason: Pain) pyridostigmine bromide 60 mg tablet 60 mg PO .9AM furosemide 20 mg tablet 10 mg PO DAILY Discharge Orders: Discharge ED (Routine); Ordered 06/06/23 Ordered By: Leighton Ndiaye Referrals: Davion Griggs MD [Primary Care Provider] - Patient Instructions: Heart Failure (ED), Pulmonary Edema (ED), Low-Sodium Diet (ED), Opioid Safety, Pain Management Activity Restrictions/Additional Instructions: Please increase your Lasix to 40 mg daily for the next 4 days. Please follow-up Sunday for a repeat of your hemoglobin for your chronic anemia along with a recheck of your symptoms. Return to the ER with any concerns. Coding Level of Care Code ED Coding Coordinator for Dougie Samson
[2023-06-06 13:28] LABS: Basophils % 0.7 %; Eosinophils # 0.1 10^3/uL (0.0-0.8); Eosinophils % 1.8 %; Hematocrit 27.6 % (36-47); Lymphocytes # 0.8 10^3/uL (0.8-4.8); Lymphocytes % 13.9 %; Mean Corpuscular HGB Conc 30.1 g/dL (30-55); Mean Corpuscular Hemoglobin 29.2 pg (27-33); Mean Corpuscular Volume 97.2 fl (85-98); Mean Platelet Volume 9.1 fL (7.4-10.4); Monocytes # 0.4 10^3/uL (0.2-0.9); Monocytes % 7.1 %; Neutrophils # 4.51 10^3/uL (1.8-7.7); Neutrophils % 75.8 %; Nucleated Red Blood Cells % 0 %; Platelet Count 233 10^3/cmm (157-399); Red Blood Count 2.84 10^6/uL (3.85-5.65); Red Cell Distribution Width 16.6 % (12.1-15.1); White Blood Count 5.95 10^3/uL (3.29-11.43)
[2023-06-06 13:55] LABS: Alanine Aminotransferase 17 U/L (0-33); Albumin Level 3.8 g/dL (3.5-5.2); Alkaline Phosphatase 90 U/L (35-105); Anion Gap 11.2 (5-19); Aspartate Amino Transferase 20 U/L (0-32); Blood Urea Nitrogen 25 mg/dL (8-23); Calcium 9.3 mg/dL (8.5-10.5); Carbon Dioxide 36 mmol/L (22-29); Chloride 97 mmol/L (98-107); Glucose 186 mg/dL (65-115); Osmolality Calculated 299 mOsm/kg (285-295); Potassium 4.2 mmol/L (3.5-5.1); Sodium 140 mmol/L (136-145); Total Bilirubin 0.3 mg/dL (0.15-1.2); Total Protein 5.8 g/dL (6.6-8.7)
[2023-06-06 13:56] LABS: Troponin(5th) Baseline 25 ng/L (0-10)
--- NOTE | 2023-06-06 14:01 | PC.PHAR ---
WAITING ON A CALL FROM PTS TO VERIFY PTS MEDS- PT UNSURE OF WHAT SHE TAKES EXTERNAL SHOWS PT SHOULD BE OUT OF ALL HER MEDICATIONS- LAST CALLED AT 2:00 PM
[2023-06-06] MEDS: ipratropium-albuterol 3 mL Neb INHALATION (14:48)
[2023-06-06 14:53] VITALS: PULSE 87; RESP 18; O2SAT 97
[2023-06-06 15:04] VITALS: PULSE 87
--- NOTE | 2023-06-06 15:09 | ECG_ITS ---
[facility] Test Date: 2023-06-06 Pat Name: Myesha Parker Department: Room: Gender: Female Emergency Medcl Emt: : 1950 Requested By: Leighton Ndiaye Order Number: [id number] Wilbur MD: Min Tipton M.D. Measurements Intervals [place] Rate: 96 P: 0 OR: 0 QRS: -82 QRSD: 153 T: 69 QT: 385 QTc: 486 Interpretive Statements ATRIAL FIBRILLATION RIGHT BUNDLE BRANCH BLOCK [120+ ms QRS DURATION, UPRIGHT V1, 40+ ms S IN I/aVL/V4/V5/V6] LEFT ANTERIOR FASCICULAR BLOCK [QRS AXIS <= -45, QR IN I, RS IN II] Compared to ECG 06/06/2023 13:05:25 No significant changes Electronically Signed On 06-06-2023 16:50:54 CDT by Min Tipton M.D. [id number]
[2023-06-06 15:44] LABS: Troponin 5 2HR 21.09 ng/L (0-10)
[2023-06-06 15:45] LABS: Troponin 5 2HR Delta -3.91 ABS# (0-10)
[2023-06-06 16:38] VITALS: BP 119/76; PULSE 87
== END 2023-06-06 16:41 | disposition home or self-care (01) ==
PROVIDERS: Emergency Provider Student in an Organized Health Care Education/Training Program; PCP Family Medicine
DX: I11.0 Hypertensive heart disease with heart failure (principal); I50.9 Heart failure, unspecified; D64.9 Anemia, unspecified; I48.20 Chronic atrial fibrillation, unspecified; Z79.4 Long term (current) use of insulin; Z87.891 Personal history of nicotine dependence; J44.9 Chronic obstructive pulmonary disease, unspecified; Z99.81 Dependence on supplemental oxygen; E78.5 Hyperlipidemia, unspecified
CPT/HCPCS: 36415; 71045; 80053; 84484; 85025; 93005; 94640; 99285; 99291

== ENCOUNTER 2023-06-16 17:46 | Inpatient (IN) | payer MEDICARE, SELFPAY ==
[2023-06-16] VITALS (54 sets, daily range): BP systolic 95–153; BP diastolic 61–113; PULSE 79–108; RESP 21–36; TEMP 36.5–36.6; O2SAT 78–99; BMI 38.9
--- NOTE | 2023-06-16 17:50 | XRR_ITS ---
PROCEDURE INFORMATION: Exam: XR Chest Exam date and time: 06/16/2023 6:17 PM Age: 72 years old Clinical indication: Shortness of breath; Patient HX: Respiratory distress; Increased o2 requirement (bi-pap); Additional info: Respiratory distress; Increased o2 requirement (bi-pap) TECHNIQUE: Imaging protocol: Radiologic exam of the chest. Views: 1 view. COMPARISON: CR XR chest 1V portable [id number] 06/06/2023 1:20 PM FINDINGS: Lungs: Patchy bilateral hilar lower lobe left greater than right airspace infiltrates. Pleural spaces: Small bilateral right greater than left pleural effusions. Heart/Mediastinum: Cardiomegaly Bones/joints: Unremarkable. XR/XR chest 1V [id number] IMPRESSION: 1. Small bilateral right greater than left pleural effusions. 2. Patchy bilateral hilar lower lobe left greater than right airspace infiltrates. 3. Cardiomegaly
--- NOTE | 2023-06-16 17:50 | ECG_ITS ---
[facility] Test Date: 2023-06-16 Pat Name: Myesha Parker Department: Room: Gender: Female [employer]: : 1950 Requested By: Kalani Domingo Order Number: [id number] Wilbur MD: Lucia Oakley M.D. Measurements Intervals [place] Rate: 107 P: 0 FL: 0 QRS: -81 QRSD: 151 T: 89 QT: 371 QTc: 497 Interpretive Statements ATRIAL FIBRILLATION WITH RAPID VENTRICULAR RESPONSE RIGHT BUNDLE BRANCH BLOCK [120+ ms QRS DURATION, UPRIGHT V1, 40+ ms S IN I/aVL/V4/V5/V6] LEFT ANTERIOR FASCICULAR BLOCK [QRS AXIS <= -45, QR IN I, RS IN II] POSSIBLE SEPTAL MYOCARDIAL INFARCTION , OF INDETERMINATE AGE [30 ms Q WAVE IN V1/V2] Compared to ECG 06/06/2023 15:12:35 Myocardial infarct finding now present Electronically Signed On 06-17-2023 6:04:29 CDT by Lucia Oakley M.D. [id number]
--- NOTE | 2023-06-16 17:55 | W.ED.CHESTPA ---
HPI - Chest Pain General: Chief Complaint: Chest Pain Stated Complaint: SOB; CHEST PAIN Time Seen by Provider: 06/16/23 17:50 Source: patient and EMS Mode of arrival: EMS Limitations: other (SOA, respiratory equiptment) History of Present Illness: Patient presents to the emergency department today for evaluation treatment of chest pain and shortness of breath today. Patient does have a history of CHF and COPD as well as A-fib. EMS states that they provided full dose aspirin, 3 nitro, albuterol breathing treatment, IM steroid and terbutaline in route. Patient originally complained of chest pain and began having the acute shortness of breath after the nitro. Patient reports she is still having chest discomfort. Patient is currently on a nonrebreather mask and O2 sat is only 85%. Patient is typically on 4 L by nasal cannula at home. EMS reports oxygen saturation in the 70s upon arrival to her home. Patient was given 324 of aspirin as well as 0.25 mg subcu terbutaline, 6 mg IM of Decadron, and albuterol nebulizer treatment in route. Nursing has indicated to me that respiratory has already been contacted for an evaluation at bedside. Patient may require BiPAP. Review of Systems General: Reports: 10 or more systems reviewed and unremarkable except in HPI and below PFSH ED PFSH: Medical History Anxiety and depression CHF exacerbation Chronic knee pain Chronic low back pain COPD (chronic obstructive pulmonary disease) Oxygen dependent, 2 L at baseline Coronary artery disease COVID-14 August 2020 Duodenal ulcer due to bacteria Fibromyalgia High risk medication use Hyperlipidemia Hypertension Hypothyroidism Immunization counseling Inflammatory arthritis Intermittent atrial fibrillation Left renal mass Liver cirrhosis Low back pain of over 3 months duration Lung nodule Major depressive disorder, recurrent episode, moderate with anxious distress Narrow complex tachycardia Osteoarthritis of knees, bilateral Poorly controlled diabetes mellitus Psychiatric care Recurrent UTI Seronegative rheumatoid arthritis of both hands Unstable angina Urgency incontinence UTI (urinary tract infection) Surgical History History of cardiac cath History of cholecystectomy History of hysterectomy History of knee replacement History of thyroid surgery Family History Other CAD (coronary artery disease) Cancer Denies family history of Anesthesia complication Bleeding disorder Social History (Reviewed 06/16/23 @ 17:56 by SHARA Blanco Smoking and tobacco/nicotine status: former use of tobacco/nicotine Quit status (tobacco/nicotine): has quit using Year quit tobacco: 2005 Second hand smoke exposure: No Alcohol intake: never Substance/Drug Use: never Adopted: No Caregiver/support person: No Lives independently: No Household members: spouse Marital status: Current occupational status: retired Current gender identity: Female Physical Exam Const: OTHER: Patient is obviously uncomfortable, anxious, and in distress. Able to only speak 1 or 2 word answers. Eye: COMMON NORMALS: Equal, round and reactive pupils present, EOMs intact bilaterally and conjunctivae normal CONJUNCTIVA: Yes conjunctivae normal PUPIL: Yes Equal, round and reactive pupils present Neck/C-Spine: COMMON NORMALS: full ROM Resp: OTHER: Patient is tachypneic. She is using accessory muscles to breathe and appears to be in respiratory distress. Lung sounds are significantly diminished bilaterally without obvious wheezing, crackles, or rhonchi Cardio: OTHER: Patient is tachycardic Extremity: COMMON NORMALS: normal to inspection and full ROM Psych: MOOD & AFFECT: Yes anxious Course Vital Signs: Vital signs: Vital Signs Temperature 97.8 F 06/16/23 17:47 Pulse Rate 87 06/16/23 19:25 Respiratory Rate 23 H 06/16/23 18:56 Blood Pressure 127/96 06/16/23 18:08 Pulse Oximetry 96 06/16/23 19:25 Oxygen Delivery Me thod BiPAP 06/16/23 18:56 Oxygen Flow Rate 6 06/16/23 17:47 Fraction of Inspir ed Oxygen 40 06/16/23 19:25 MDM - Chest Pain Medical Decision Making Patient presented to the emergency department in signs of respiratory distress/respiratory failure. Lab work showed no signs of an elevated white blood cell count. Hemoglobin was 8.3 which is stable at her typical baseline. Creatinine was 1.2 which is also stable at her typical baseline. ABG indicated an ascitic pH of 7.32 with a CO2 reading of 70.3. Bicarb was 36.4. BNP was 2600 which is still within her typical range and troponin baseline was 24-again at her typical baseline. X-ray confirms 2 small bilateral pleural effusions present. After being placed on BiPAP, patient's O2 status went up to 95%. Discussed case with Dr. Sheppard multiple times during evaluation. Discussed the case with Dr Marte for admission. She did see the patient at bedside. She agreed to inpatient admission for this patient but also requested a CTA before leaving the emergency department. We will defer care to hospitalist services at this time for further evaluation and treatment. Differential Diagnosis Likely acute respiratory failure; Unlikely acute myocardial infarction, cardiac arrest or sudden cardiac Lab Data 06/16/23 17:56 06/16/23 17:56 Radiology Impressions Chest X-Ray 06/16/23 17:50 IMPRESSION: 1. Small bilateral right greater than left pleural effusions. 2. Patchy bilateral hilar lower lobe left greater than right airspace infiltrates. 3. Cardiomegaly Laboratory Results WBC 8.01 10^3/uL (3.29-11.43) 06/16/23 17:56 RBC 2.88 10^6/uL (3.85-5.65) L 06/16/23 17:56 Hgb 8.30 g/dL (11.27-16.99) L 06/16/23 17:56 Hct 29.5 % (36-47) L 06/16/23 17:56 MCV 102.4 fl (85-98) H 06/16/23 17:56 MCH 28.8 pg (27-33) 06/16/23 17:56 MCHC 28.1 g/dL (30-55) L 06/16/23 17:56 RDW 17.9 % (12.1-15.1) H 06/16/23 17:56 Plt Count 263 10^3/cmm (157-399) 06/16/23 17:56 MPV 9.3 fL (7.4-10.4) 06/16/23 17:56 Neut % (Auto) 75.7 % 06/16/23 17:56 Lymph % (Auto) 12.7 % 06/16/23 17:56 [place] % (Auto) 9.4 % 06/16/23 17:56 Eos % (Auto) 0.9 % 06/16/23 17:56 Baso % (Auto) 0.6 % 06/16/23 17:56 Neut # (Auto) 6.06 10^3/uL (1.8-7.7) 06/16/23 17:56 Lymph # (Auto) 1.0 10^3/uL (0.8-4.8) 06/16/23 17:56 [place] # (Auto) 0.8 10^3/uL (0.2-0.9) 06/16/23 17:56 Eos # (Auto) 0.1 10^3/uL (0.0-0.8) 06/16/23 17:56 Baso # (Auto) 0.1 10^3/uL (0.0-0.1) 06/16/23 17:56 Nucleated RBC % (auto) 0 % 06/16/23 17:56 Nucleated RBCs # 0.0 /100WBC 06/16/23 17:56 Specimen Type Arterial 06/16/23 18:17 Sample Site Brachial, left 06/16/23 18:17 ABG pH 7.32 (7.35-7.45) L 06/16/23 18:17 ABG pCO2 70.3 mmHg (35-45) H* 06/16/23 18:17 ABG pO2 75.9 mmHg (80.0-100.0) L 06/16/23 18:17 ABG HCO3 36.4 mmol/L (22-26) H 06/16/23 18:17 ABG O2 Saturation 93.5 06/16/23 18:17 ABG Base Excess 9.0 mmol/L (-2.0-2.0) H 06/16/23 18:17 Memo Test N/a 06/16/23 18:17 A-a O2 Gradient 16.0 mmHg (5-10) H 06/16/23 18:17 Hematocrit 24.6 % (37-47) L 06/16/23 18:17 Hgb O2 Saturation 90.1 % (95-100) L 06/16/23 18:17 Carboxyhemoglobin 1.7 %THgb (0.4-20.1) 06/16/23 18:17 Methemoglobin 1.9 % (0.4-1.5) H 06/16/23 18:17 Total Hemoglobin 8.0 g/dL (12-16) L 06/16/23 18:17 Sodium 142.0 mmol/L (131-143) 06/16/23 18:17 Potassium 4.6 mmol/L (3.5-5.0) 06/16/23 18:17 Glucose 271.0 mg/dL (70-115) H 06/16/23 18:17 Ionized Calcium 1.2 mmol/L (1.1-1.4) 06/16/23 18:17 O2 Delivery Device Bipap 06/16/23 18:17 FiO2 40.0 % 06/16/23 18:17 [employer] Engineer ID [facility] 06/16/23 18:17 Sodium 142 mmol/L (136-145) 06/16/23 17:56 Potassium 5.1 mmol/L (3.5-5.1) 06/16/23 17:56 Chloride 98 mmol/L (98-107) 06/16/23 17:56 Carbon Dioxide 35 mmol/L (22-29) H 06/16/23 17:56 Anion Gap 14.1 (5-19) 06/16/23 17:56 BUN 22 mg/dL (8-23) 06/16/23 17:56 Creatinine 1.2 mg/dL (0.5-0.9) H 06/16/23 17:56 GFR Calculation Not Reportable 06/16/23 17:56 Glucose 284 mg/dL (65-115) H 06/16/23 17:56 Calculated Osmolality 308 mOsm/kg (285-295) H 06/16/23 17:56 Lactic Acid 3.3 mmol/L (0.5-2.2) H 06/16/23 17:56 Calcium 8.8 mg/dL (8.5-10.5) 06/16/23 17:56 Total Bilirubin 0.3 mg/dL (0.15-1.2) 06/16/23 17:56 AST 39 U/L (0-32) H 06/16/23 17:56 ALT 30 U/L (0-33) 06/16/23 17:56 Alkaline Phosphatase 139 U/L (35-105) H 06/16/23 17:56 Troponin T Baseline 24 ng/L (0-10) H 06/16/23 17:56 Troponin T 120 Minute 23.95 ng/L (0-10) H 06/16/23 19:36 Delta Troponin T -0.05 ABS# (0-10) L 06/16/23 19:36 NT-Pro-B Natriuret Pep 2603 pg/mL (0-125) H 06/16/23 17:56 Total Protein 5.9 g/dL (6.6-8.7) L 06/16/23 17:56 Albumin 3.8 g/dL (3.5-5.2) 06/16/23 17:56 Globulin 2.1 g/dL (1.3-4.6) 06/16/23 17:56 Procalcitonin 0.07 ng/mL (0-0.5) 06/16/23 17:56 Urine Color Yellow (Yellow) 06/16/23 18:52 Urine Appearance Clear (CLEAR) 06/16/23 18:52 Urine pH 5 (5-7) 06/16/23 18:52 Ur Specific [place] 1.020 (1.005-1.030) 06/16/23 18:52 Urine Protein 3+ (Negative) H 06/16/23 18:52 Urine Glucose (UA) Norm (Normal) 06/16/23 18:52 Urine Ketones 1+ (Negative) H 06/16/23 18:52 Urine Blood Neg (Negative) 06/16/23 18:52 Urine Nitrate Negative (Negative) 06/16/23 18:52 Urine Bilirubin Neg (Negative) 06/16/23 18:52 Urine Urobilinogen Neg mg/dL (Negative) 06/16/23 18:52 Ur Leukocyte Esterase Negative (Negative) 06/16/23 18:52 Urine RBC 0-4 /hpf (0-2) H 06/16/23 18:52 Urine WBC 0-4 /hpf (0-5) H 06/16/23 18:52 Ur Squamous Epith Cells 0-4 /hpf (0-5) H 06/16/23 18:52 Amorphous Sediment 2+ /hpf 06/16/23 18:52 Urine Bacteria Trace /hpf (NONE) 06/16/23 18:52 Hyaline Casts 5-10 /lpf H 06/16/23 18:52 Urine Mucus 2+ /hpf 06/16/23 18:52 XR interpretation done by ED provider, pending radiology final review (CTA requested prior to pt transport to the floor by the hospitalist who will be admitting the patient and monitoring results) Discharge Plan Discharge Patient Disposition: Admitted As Inpatient Admit Provider: Delores Marte Clinical Impression: Acute respiratory failure, Chronic atrial fibrillation, Coronary artery disease, Heart failure with preserved ejection fraction, COPD (chronic obstructive pulmonary disease), Chest pain Condition: Stable Coding Level of Care Code ED Bar Porter for Dougie Samson
[2023-06-16 18:22] LABS: Basophils # 0.1 10^3/uL (0.0-0.1); Basophils % 0.6 %; Eosinophils # 0.1 10^3/uL (0.0-0.8); Eosinophils % 0.9 %; Hematocrit 29.5 % (36-47); Lymphocytes % 12.7 %; Mean Corpuscular HGB Conc 28.1 g/dL (30-55); Mean Corpuscular Hemoglobin 28.8 pg (27-33); Mean Corpuscular Volume 102.4 fl (85-98); Mean Platelet Volume 9.3 fL (7.4-10.4); Monocytes # 0.8 10^3/uL (0.2-0.9); Monocytes % 9.4 %; Neutrophils # 6.06 10^3/uL (1.8-7.7); Neutrophils % 75.7 %; Nucleated Red Blood Cells % 0 %; Platelet Count 263 10^3/cmm (157-399); Red Blood Count 2.88 10^6/uL (3.85-5.65); Red Cell Distribution Width 17.9 % (12.1-15.1); White Blood Count 8.01 10^3/uL (3.29-11.43)
[2023-06-16 18:28] LABS: ABG PH Result 7.32 (7.35-7.45); Arterial Blood Gas Hematocrit 24.6 % (37-47); Blood Gas Operator Identificat AMH; Blood Gas Sample Site Brachial, left; Blood Gas Sample Type Arterial; Carboxyhemoglobin 1.7 %THgb (0.4-20.1); HCO3 ABG 36.4 mmol/L (22-26); HGB O2 Sat 90.1 % (95-100); Ionized Calcium Level - ABG 1.2 mmol/L (1.1-1.4); Methemoglobin 1.9 % (0.4-1.5); Oxygen Device BIPAP; Oxygen Saturation ABG 93.5; PO2 ABG 75.9 mmHg (80.0-100.0); Potassium Level - ABG 4.6 mmol/L (3.5-5.0)
[2023-06-16 18:29] LABS: ABG PCO2 70.3 mmHg (35-45)
[2023-06-16 18:34] LABS: Alanine Aminotransferase 30 U/L (0-33); Albumin Level 3.8 g/dL (3.5-5.2); Alkaline Phosphatase 139 U/L (35-105); Anion Gap 14.1 (5-19); Aspartate Amino Transferase 39 U/L (0-32); Blood Urea Nitrogen 22 mg/dL (8-23); Calcium 8.8 mg/dL (8.5-10.5); Carbon Dioxide 35 mmol/L (22-29); Chloride 98 mmol/L (98-107); Globulin 2.1 g/dL (1.3-4.6); Glucose 284 mg/dL (65-115); Osmolality Calculated 308 mOsm/kg (285-295); Potassium 5.1 mmol/L (3.5-5.1); Sodium 142 mmol/L (136-145); Total Bilirubin 0.3 mg/dL (0.15-1.2); Total Protein 5.9 g/dL (6.6-8.7)
[2023-06-16 19:20] LABS: Add Urine Microscopic? YES; Bilirubin Urine Neg (Negative); Blood Urine Neg (Negative); Glucose Urine UA Norm (Normal); Ketones Urine 1+ (Negative); Leukocyte Esterase Urine Negative (Negative); Nitrate Urine Negative (Negative); Protein Urine 3+ (Negative); Urine Appearance Clear (CLEAR); Urine Color Yellow (Yellow); Urobilinogen Urine Neg (Negative); pH Urine 5 (5-7)
[2023-06-16 19:24] LABS: Add Urine Culture? No; Amorphous Sediment Urine 2+ /hpf; Bacteria Urine TRACE /hpf; Mucus Urine 2+ /hpf; RBC Urine 0-4 /hpf (0-2); Squamous Epithelial Cell Urine 0-4 /hpf (0-5); WBC Urine 0-4 /hpf (0-5)
[2023-06-16] MEDS: FUROsemide 10 mg/mL SDV 10mL 60 MG IVP (19:24)
[2023-06-16 19:25] LABS: Lactic Sepsis W/Reflex 3.3 mmol/L (0.5-2.2)
[2023-06-16 19:27] LABS: Troponin(5th) Baseline 24 ng/L (0-10)
[2023-06-16 19:34] LABS: Procalcitonin 0.07 ng/mL (0-0.5)
[2023-06-16 19:39] LABS: NT Pro B Type Natriuretic Pept 2603 pg/mL (0-125)
[2023-06-16 20:02] LABS: Troponin 5 2HR 23.95 ng/L (0-10)
[2023-06-16 20:03] LABS: Troponin 5 2HR Delta -0.05 ABS# (0-10)
--- NOTE | 2023-06-16 20:47 | CTR_ITS ---
PROCEDURE INFORMATION: Exam: CTA Chest With Contrast Exam date and time: 06/16/2023 9:57 PM Age: 72 years old Clinical indication: Shortness of breath; Chest pressure; Prior surgery; Surgery date: 6+ months; Surgery type: Thyroid. Ptca. Gb; Patient HX: Chest pain with SOB and hypoxia. Spo2 in 70s upon er arrival. History of copd. On bipap. ; Additional info: Arf, eval for pe- per Dr smith request TECHNIQUE: Imaging protocol: Computed tomographic angiography of the chest with contrast. Exam focused on the arteries. 3D rendering (Not supervised by radiologist): MIP and/or 3D reconstructed images were created by the technologist. Radiation optimization: All CT scans at this facility use at least one of these dose optimization techniques: automated exposure control; mA and/or kV adjustment per patient size (includes targeted exams where dose is matched to clinical indication); or iterative reconstruction. Contrast material: OMNI 350; Contrast volume: 78 ml; Contrast route: INTRAVENOUS (IV); REPORTING DATA: Count of CT and Cardiac NM exams in prior 12 months: This patient has received 5 known CTs and 0 known cardiac nuclear medicine studies in the 12 months prior to the current study. COMPARISON: CT angio chest PE protcl [id number] 07/02/2021 9:14 AM RADIATION DOSE METRICS: Total DLP (mGy-cm): 752.53 FINDINGS: Pulmonary arteries: Pulmonary artery is prominent which can be a finding of pulmonary artery hypertension. Aorta: Unremarkable. No aortic aneurysm. No aortic dissection. Lungs: Bilateral dependent airspace infiltrates. Pleural spaces: Moderate to large bilateral pleural effusions. Heart: Cardiomegaly. Coronary arteries: Coronary artery atherosclerotic calcifications. Lymph nodes: Unremarkable. No enlarged lymph nodes. Liver: Cirrhotic liver suspected. Gallbladder and bile ducts: Cholecystectomy. Bones/joints: Unremarkable. No acute fracture. Soft tissues: Unremarkable. CT/CT angio chest PE protcl [id number] IMPRESSION: 1. Moderate to large bilateral pleural effusions. 2. Pulmonary artery is prominent which can be a finding of pulmonary artery hypertension. 3. Cardiomegaly. 4. Coronary artery atherosclerotic calcifications. 5. Cirrhotic liver suspected. 6. Bilateral dependent airspace infiltrates. 7. Cholecystectomy.
[2023-06-16 20:48] LABS: Reflex Lactate Order REFLEX LACTIC ORDERD
--- NOTE | 2023-06-16 20:50 | P.HP_ITS ---
Providers/Chief Complaint Primary Care Provider: Davion Griggs MD Chief Complaint: SOB; CHEST PAIN History of Present Illness Myesha Parker is a 72 year old female with history of COPD CHF with preserved EF morbid obesity hypothyroidism hypertension PTSD sleep apnea major depressive disorder acute kidney injury anemia atrial fibrillation fibromyalgia upper GI bleed was brought in by EMS for shortness of breath and chest pain since this morning. As per the who is at the bedside he reported that she was not feeling well this morning and was complaining of some shortness of breath. She is on 2 L supplemental oxygen at home, which was increased to 4 L nasal cannula but with no improvement. She went to take a nap and when she woke up she started having severe shortness of breath, midsternal chest pain associated with dizziness and diaphoresis. Her gave her nitroglycerin x3 every 5 minutes persistent but the chest pain persisted. There is no prior history of fever cold cough nausea vomiting abdominal pain diarrhea recent travel or sick contact. When seen by EMS she was saturating 76% on 4 L nasal cannula, switched to nonrebreather with saturation of 85%, received aspirin 324 mg Decadron and al buterol inhalation, but oxygen saturations did not improve. Hence she was started on BiPAP with saturation of 95% on 40% FiO2. Review of Systems Narrative: As per HPI Medications/Allergies Home Medications Medication Instructions Recorded Confirmed Last Taken Type acetaminophen 650 mg 650 mg PO Q4H PRN Pain 10/12/19 04/17/23 11/04/21 History tablet,extended release (Arthritis Pain Reliever) cholecalciferol (vitamin D3) 25 2,000 unit PO DAILY@08 10/12/19 04/17/23 04/16/23 History mcg (1,000 unit) tablet (Vitamin D3) albuterol sulfate 2.5 mg/3 mL 2.5 mg inhalation TID PRN 10/08/20 04/17/23 Unkn own History (0.083 %) solution for nebulization Shortness Of Breath nitroglycerin 0.4 mg sublingual 0.4 mg sublingual Q5M PRN Chest 02/08/21 04/17/23 Unknown Rx tablet (Nitrostat) Pain #30 tabs albuterol sulfate 90 mcg/actuation 2 puff inhalation Q6H PRN 03/16/21 04/17/23 Unknown History aerosol inhaler Shortness Of Breath chlorpheniramine maleate 4 mg See Rx Instructions .Route .COMPLEX 03/16/21 04/17/23 05/06/21 History tablet (ChlorTabs) cyanocobalamin (vitamin B-12) 500 500 mcg PO DAILY 03/16/21 04/17/23 04/16/23 History mcg tablet (Vitamin B-12) diphenhydramine HCl 25 mg capsule See Rx Instructions .Route .COMPLEX 03/16/21 04/17/23 05/05/21 History (Benadryl) docusate sodium 250 mg capsule 250 mg PO BID 03/16/21 04/17/23 04/16/23 History (Stool Softener) ferrous gluconate 324 mg (37.5 mg See Rx Instructions .Route .COMPLEX 05/06/21 04/17/23 04/16/23 History iron) tablet hydrocodone 7.5 mg-acetaminophen 1 tab PO TID PRN pain 30 days #90 06/21/21 04/17/23 09/13/21 10:00 Rx 325 mg tablet tabs 1/2 tab calcium carbonate 600 mg calcium 600 mg PO DAILY 06/27/21 04/17/23 04/16/23 History (1,500 mg) tablet (Calcium) levothyroxine 150 mcg tablet 150 mcg PO QAM 06/27/21 04/17/23 04/16/23 History (Euthyrox) insulin lispro 100 unit/mL See Rx Instructions .Route .COMPLEX 09/13/21 04/17/23 11/04/21 History subcutaneous pen pantoprazole 40 mg tablet,delayed 40 mg PO BID 09/13/21 04/17/23 04/16/23 History release nystatin 100,000 unit/gram topical 1 applic topical DAILY #60 grams 11/29/21 04/17/23 Unknown Rx powder mupirocin 2 % topical ointment 1 applic topical BID #22 grams 03/27/22 04/17/23 Unknown Rx ketoconazole 2 % topical cream 1 applic topical BID #60 grams 07/04/22 04/17/23 Unknown Rx folic acid 1 mg tablet 1 mg PO DAILY@08 #90 tabs 01/10/23 04/17/23 04/16/23 Rx duloxetine 60 mg capsule,delayed 60 mg PO DAILY@08 #120 caps 02/01/23 04/17/2323 Rx release sulfasalazine 500 mg tablet See Rx Instructions .Route 04/02/23 04/17/23 04/16/23 Rx .COMPLEX #60 tabs atorvastatin 80 mg tablet 80 mg PO BEDTIME #100 tabs 04/03/23 04/17/23 04/16/23 Rx digoxin 125 mcg (0.125 mg) tablet 125 mcg PO DIRECTED #75 tabs 04/03/23 04/17/23 04/16/23 Rx diltiazem HCl 180 mg 180 mg PO DAILY #100 caps 04/03/23 04/17/23 04/16/23 Rx capsule,extended release 24 hr, controlled (DILT-XR) hydralazine 10 mg tablet 10 mg PO TID #270 tabs 04/03/23 04/17/23 04/16/23 Rx lisinopril 40 mg tablet 40 mg PO QPM #30 tabs 04/03/23 04/17/23 04/16/23 Rx magnesium L-lactate 84 mg 84 mg PO BID #180 tabs 04/03/23 04/17/23 04/16/23 Rx tablet,extended release metoprolol tartrate 50 mg tablet 75 mg PO BID #180 tabs 04/03/23 04/17/23 04/16/23 Rx potassium chloride 20 mEq 20 meq PO BID #180 tabs 04/03/23 04/17/23 04/16/23 Rx tablet,extended release furosemide 20 mg tablet 10 mg PO DAILY 04/17/23 04/17/23 04/16/23 History insulin human U-100 NPH-regulr See Rx Instructions .Route .COMPLEX 04/17/23 04/17/23 04/16/23 History 70-30 mix 100 unit/mL subcutaneous susp (Humulin 70/30 U-100 Insulin) pyridostigmine bromide 60 mg tablet 60 mg PO .9AM 04/17/23 04/17/23 04/16/23 History sucralfate 1 gram tablet 1 g PO TID 04/17/23 04/17/23 Unknown History tramadol 50 mg tablet 50 mg PO Q4H PRN Pain 04/17/23 04/17/23 Unknown History methotrexate sodium 2.5 mg tablet 15 mg PO Q7D #90 tabs 04/24/23 Unknown Rx adalimumab 40 mg/0.8 mL See Rx Instructions .Route 05/09/23 Unknown Rx subcutaneous pen kit (Humira Pen) .COMPLEX #2 ea Allergies Allergy/AdvReac Type Severity Reaction Status Date / Time adhesive tape Allergy rash Verified 03/18/23 18:08 cinnamon Allergy sinus Verified 03/18/23 18:08 codeine Allergy unknown Verified 03/18/23 18:08 cedar Allergy sinus Uncoded 02/12/23 11:32 pine Allergy sinus Uncoded 02/12/23 11:32 pork food Allergy ADR-Nausea Uncoded 02/12/23 11:32 PFSH Acute PFSH: Medical History Anxiety and depression CHF exacerbation Chronic knee pain Chronic low back pain COPD (chronic obstructive pulmonary disease) Oxygen dependent, 2 L at baseline Coronary artery disease COVID-14 August 2020 Duodenal ulcer due to bacteria Fibromyalgia High risk medication use Hyperlipidemia Hypertension Hypothyroidism Immunization counseling Inflammatory arthritis Intermittent atrial fibrillation Left renal mass Liver cirrhosis Low back pain of over 3 months duration Lung nodule Major depressive disorder, recurrent episode, moderate with anxious distress Narrow complex tachycardia Osteoarthritis of knees, bilateral Poorly controlled diabetes mellitus Psychiatric care Recurrent UTI Seronegative rheumatoid arthritis of both hands Unstable angina Urgency incontinence UTI (urinary tract infection) Surgical History History of cardiac cath History of cholecystectomy History of hysterectomy History of knee replacement History of thyroid surgery Family History Other CAD (coronary artery disease) Cancer Denies family history of Anesthesia complication Bleeding disorder Social History Smoking and tobacco/nicotine status: former use of tobacco/nicotine Quit status (tobacco/nicotine): has quit using Year quit tobacco: 2005 Second hand smoke exposure: No Alcohol intake: never Substance/Drug Use: never Adopted: No Caregiver/support person: No Lives independently: No Household members: spouse Marital status: Current occupational status: retired Current gender identity: Female Vitals/I&O/Wt Last Vital Signs Temp 97.8 F 06/16/23 17:47 Pulse 87 06/16/23 19:25 Resp 23 H 06/16/23 18:56 BP 127/96 06/16/23 18:08 Pulse Ox 96 06/16/23 19:25 O2 Del Method BiPAP 06/16/23 18:56 O2 Flow Rate 6 06/16/23 17:47 FiO2 40 06/16/23 19:25 Weight last 48 hrs Weight 106.141 kg Physical Exam Narrative: She is alert awake oriented x3, able to speak due to BiPAP, in moderate respiratory distress Chest clear to auscultation bilaterally, decreased air entry in bilateral posterior basal area Cardiovascular normal heart sounds no murmurs Abdomen soft nontender nondistended normal bowel sounds Extremity bilateral 1+ lower extremity pitting edema present Urinary Catheter Management: Manz[place]res: Cath Placed During This Visit: yes Reason for Continuing Indwelling Catheter: Accurate Measurement of Urinary Output in Critically Ill Patients Urinary Catheter Date of Insertion: 06/16/23 Urinary Catheter Time of Insertion: 18:56 Data 06/16/23 17:56 06/16/23 17:56 Echo: Radiologist's impression: 07/17 CONCLUSIONS ?Normal left ventricular size and systolic function, EF 78 %. ?Moderate left ventricular hypertrophy. No regional wall motion ?abnormalities. Grade I/IV diastolic dysfunction (abnormal ?relaxation filling pattern), normal to mildly elevated filling ?pressures. ?Thickened mitral valve. Moderate mitral annular calcification. ?Features of aortic valve sclerosis ?There is no pericardial effusion. ?There are no intracardiac masses. ?Compared to the study from 03/16/2021, there may not be a ?significant change CXR: Radiologist's impression: IMPRESSION: 1. ? Small bilateral right greater than left pleural effusions. 2. ? Patchy bilateral hilar lower lobe left greater than right airspace infiltrates. 3. ? Cardiomegaly EKG 1: My Interpretation: Atrial fibrillation with RVR at 107 bpm Right bundle branch block No acute ST-T changes ABG Interpretation 1: 06/16/23 18:17 ABG pH 7.32 L ABG pCO2 70.3 H* ABG pO2 75.9 L ABG HCO3 36.4 H ABG O2 Saturation 93.5 ABG Base Excess 9.0 H A&P Assessment and plan (1) Acute respiratory failure: (2) Anemia: (3) CYNTHIA (acute kidney injury): (4) CHF exacerbation: Plan 72 year old female with history of COPD CHF with preserved EF morbid obesity hypothyroidism hypertension PTSD sleep apnea major depressive disorder acute kidney injury anemia atrial fibrillation fibromyalgia upper GI bleed was brought in by EMS for shortness of breath and chest pain since this morning and was found to have acute hypoxic and hypercarbic respiratory failure likely secondary to COPD exacerbation versus congestive heart failure. Acute hypoxic and hypercarbic respiratory failure Admit to ICU We will continue BiPAP 18/6/40% FiO2 to keep oxygen saturation more than 90% Will give IV ceftriaxone 1 g daily IV azithromycin 500 mg daily IV methylprednisolone 80 mg twice a day DuoNebs every 6 hours Cannot rule out pulmonary embolism, will check CT chest angio. Congestive heart failure Cannot rule out pulmonary edema although BNP is 2600 at baseline Received 1 dose of IV Lasix 40 mg in ER We will give IV Lasix 40 mg daily Last 2D echo done 07/17, showed systolic and diastolic dysfunction with preserved EF. CYNTHIA stable Anemia likely anemia of chronic disease, stable Resume home medications N.p.o. except medications for now IV Pepcid 20 mg twice a day for stress ulcer prophylaxis Subcutaneous Lovenox 40 mg daily for DVT prophylaxis She is full code for now as per the discussion with the Gerardo Parker () at the bedside. Attestations Medical Necessity Statement*: She needs more than 2 days of hospitalization for management of acute hypoxic and hypercarbic respiratory failure with IV steroids antibiotics and BiPAP Time Spent in Patient Care: 30 minutes Coding Level of Care Code Acute Code for [facility] F[facility] Diagnoses Acute respiratory failure J96.00 Anemia D64.9 CYNTHIA (acute kidney injury) N17.9 CHF exacerbation I50.9 Time Spent (min) 30
[2023-06-16 21:39] LABS: Lactic Acid level (Lactate) 1.4 mmol/L (0.5-2.2)
[2023-06-16] MEDS: iohexol 350 mg/mL 500 mL Btl (per mL) IV (22:06)
[2023-06-17] VITALS (58 sets, daily range): BP systolic 76–156; BP diastolic 46–112; PULSE 78–122; RESP 12–36; TEMP 36.4–36.6; O2SAT 81–100
[2023-06-17] MEDS: famotidine 20 mg/2 mL INJ IVP ×3 (00:14→20:37)
[2023-06-17] MEDS: atorvastatin 40 mg Tablet 80 MG PO ×2 (00:14→20:37)
[2023-06-17] MEDS: FUROsemide 10 mg/mL SDV 4mL 40 MG IVP ×2 (00:14→20:37)
[2023-06-17] MEDS: enoxaparin 40 mg/0.4 mL Syringe SUBCUT ×2 (00:14→20:37)
[2023-06-17] MEDS: cefTRIAXone 1,000 MG in sodium chloride 0.9% (plus) 50 ML 100 MG IV ×2 (00:15→20:38)
[2023-06-17] MEDS: azithromycin 500 MG in sodium chloride 0.9% 250 ML 250 MG IV ×2 (00:15→20:38)
[2023-06-17 01:43] LABS: Glucose Point of Care 208 mg/dL (70-110)
[2023-06-17 02:10] LABS: SARS Covid-2 Antigen negative (Negative)
[2023-06-17 02:19] LABS: Troponin 5 6HR 19.93 ng/L (0-10)
[2023-06-17 02:24] LABS: Troponin 5 6HR Delta -4.07 ng/L (0-12)
[2023-06-17 04:40] LABS: Basophils % 0.2 %; Hematocrit 27.1 % (36-47); Lymphocytes # 0.2 10^3/uL (0.8-4.8); Lymphocytes % 5.1 %; Mean Corpuscular HGB Conc 28.8 g/dL (30-55); Mean Corpuscular Hemoglobin 28.8 pg (27-33); Mean Platelet Volume 10.3 fL (7.4-10.4); Monocytes # 0.2 10^3/uL (0.2-0.9); Monocytes % 5.6 %; Neutrophils % 88.2 %; Nucleated Red Blood Cells % 0 %; Platelet Count 133 10^3/cmm (157-399); Red Blood Count 2.71 10^6/uL (3.85-5.65); Red Cell Distribution Width 18.1 % (12.1-15.1); White Blood Count 4.31 10^3/uL (3.29-11.43)
[2023-06-17 04:46] LABS: Alanine Aminotransferase 27 U/L (0-33); Albumin Level 3.1 g/dL (3.5-5.2); Alkaline Phosphatase 114 U/L (35-105); Blood Urea Nitrogen 22 mg/dL (8-23); Calcium 8.8 mg/dL (8.5-10.5); Carbon Dioxide 37 mmol/L (22-29); Chloride 97 mmol/L (98-107); Globulin 2.7 g/dL (1.3-4.6); Glucose 193 mg/dL (65-115); Magnesium 1.7 mg/dL (1.7-2.3); Osmolality Calculated 301 mOsm/kg (285-295); Phosphorus 4.3 mg/dL (2.5-4.5); Sodium 141 mmol/L (136-145); Total Bilirubin 0.2 mg/dL (0.15-1.2); Total Protein 5.8 g/dL (6.6-8.7)
[2023-06-17 04:47] LABS: Anion Gap 11.7 (5-19); Aspartate Amino Transferase 38 U/L (0-32); Potassium 4.7 mmol/L (3.5-5.1)
[2023-06-17 04:49] LABS: NT Pro B Type Natriuretic Pept 2492 pg/mL (0-125)
[2023-06-17] MEDS: levothyroxine 150 mcg Tablet PO (05:30)
[2023-06-17] MEDS: insulin aspart 70/30 100 units/1 mL 60 UNIT SUBCUT ×2 (05:31→17:50)
[2023-06-17 05:37] LABS: Slide Review Slide Review Perform
[2023-06-17 06:00] LABS: ABG PH Result 7.38 (7.35-7.45); Alveolar-Arterial Oxygen Gradi 10.8 mmHg (5-10); Arterial Blood Gas Hematocrit 24.5 % (37-47); Base Excess ABG 13.6 mmol/L (-2.0-2.0); Blood Gas Sample Site Brachial, left; Blood Gas Sample Type Arterial; Carboxyhemoglobin 1.5 %THgb (0.4-20.1); HCO3 ABG 40.6 mmol/L (22-26); Ionized Calcium Level - ABG 1.2 mmol/L (1.1-1.4); Methemoglobin 1.9 % (0.4-1.5); Oxygen Device BIPAP; Oxygen Saturation ABG 98.4; Potassium Level - ABG 4.1 mmol/L (3.5-5.0)
[2023-06-17 06:01] LABS: ABG PCO2 69.5 mmHg (35-45)
[2023-06-17 08:43] LABS: Glucose Point of Care 107 mg/dL (70-110)
[2023-06-17] MEDS: ferrous gluconate 324 mg Tablet PO (09:48)
[2023-06-17] MEDS: potassium chloride ER 20 mEq Tablet PO ×2 (09:48→17:46)
[2023-06-17] MEDS: pyridostigmine 60 mg Tablet PO (09:48)
[2023-06-17] MEDS: digoxin 125 mcg Tablet PO (09:49)
[2023-06-17] MEDS: duloxetine 60 mg Capsule PO (09:49)
[2023-06-17] MEDS: dilTIAZem ER (24HR) 180 mg Capsule PO (09:49)
[2023-06-17] MEDS: hyDRALAzine 10 mg Tablet PO ×3 (09:49→20:37)
[2023-06-17] MEDS: metoprolol tartrate 50 mg Tablet 75 MG PO ×2 (09:49→17:46)
--- NOTE | 2023-06-17 10:51 | PC.PHAR ---
pt has new meds: Trelegy 200-62.5, Clucose 4 gm, Eliquis 5 mg, and Metoprolol succ. ER 100 mg. Spouse states Duloxetine is 60 mg daily, pt should take Humiria today, Humulin 70/30 is vial and only 7 units twice daily, but sometimes is in pen form. Potassium Chl is 20 meq. 06/17/23
[2023-06-17 11:58] LABS: Glucose Point of Care 95 mg/dL (70-110)
--- NOTE | 2023-06-17 16:05 | PM.PN ---
Subjective Subjective: Reports that she is still short of breath, but feeling a little better. Says that she is wanting to eat. Medications: Reviewed: Yes Vitals/I&O/Wt Last Vital Signs Temp 98 F 06/17/23 07:30 Pulse 102 H 06/17/23 14:30 Resp 36 H 06/17/23 13:00 BP 131/71 06/17/23 13:00 Pulse Ox 95 06/17/23 13:00 O2 Del Method Nasal Cannula 06/17/23 13:00 O2 Flow Rate 4 06/17/23 13:00 FiO2 40 06/17/23 08:56 06/17/23 06/17/23 06/17/23 06:59 14:59 22:59 Intake Total 300 / 300 51.28 / 51.28 Output Total 2350 / 2350 Balance -2049 / -2050 51.28 / 51.28 Weight last 48 hrs Weight 234 lb Physical Exam Narrative: General: Cooperative patient. Currently on BIPAP. HEENT: Normocephalic, Atraumatic. External ears normal. Nasal passages patent without drainage. MMM. Heart: RRR. Resp: Lungs with scattered rales. Lung sounds are diminished, but present. Abd: Soft, non-tender. Non-distended. Extremities: No edema. Skin: No rash or lesions on exposed areas. Neuro: No focal motor or sensory loss. Urinary Catheter Management: Manzanares: Cath Placed During This Visit: yes Reason for Continuing Indwelling Catheter: Accurate Measurement of Urinary Output in Critically Ill Patients Urinary Catheter Date of Insertion: 06/16/23 Urinary Catheter Time of Insertion: 18:56 Data 06/17/23 03:57 06/17/23 03:57 A&P Assessment and plan (1) Acute respiratory failure: (2) Anemia: (3) CYNTHIA (acute kidney injury): (4) CHF exacerbation: Plan 72 year old female with history of COPD CHF with preserved EF morbid obesity hypothyroidism hypertension PTSD sleep apnea major depressive disorder acute kidney injury anemia atrial fibrillation fibromyalgia upper GI bleed. Continue close ICU monitoring. Continue BIPAP, RAAT, O2 protocol. Started on Rocephin, Azithromycin and prednisone. We will continue BiPAP 18/6/40% FiO2 to keep oxygen saturation more than 90% Duonebs. Continue IV diruesis with Lasix. Strict I/O's. Manzanares catheter in place. Hgb is stable at this time. Will advance diet she is able to tolerate. Continue Accuchecks, Insulin protocol. GI PPx with Pepcid. VTE ppx with Lovenox. Home meds for other chronic illnesses. Code Status: Full IVF: None DVT PPx: Lovenox GI PPx: Pepcid ABx: Rocephin, Azithromycin Diet: NPO advance to Cardiac CC as tolerated. Discharge plan: TBD. Attestations Medical Necessity Statement*: Continue close inpatient monitoring for acute hypoxic respiratory failure, Acute kidney injury, anemia. Coding Level of Care Code Acute Code for Chg Fwd Moderate MDM includes number and complexity of problems actively addressed during encounter, amount and/or complexity of data reviewed/ordered and described risk of complication, morbidity or mortality of management as documented Diagnoses Acute respiratory failure J96.00 Anemia D64.9 CYNTHIA (acute kidney injury) N17.9 CHF exacerbation I50.9
[2023-06-17 17:37] LABS: Glucose Point of Care 202 mg/dL (70-110)
[2023-06-17] MEDS: lisinopril 20 mg Tablet 40 MG PO (17:45)
[2023-06-17] MEDS: sulfaSALAzine 500 mg Tablet PO (17:46)
[2023-06-17] MEDS: insulin lispro 100 unit/1 mL SUBCUT ×2 (17:50→20:39)
--- NOTE | 2023-06-17 18:48 | PC.NURSE ---
Shift summary: Pt had a relatively good day. Started the day on BiPap at 405, she is now using 4lpm/NC. No respiratory issues throughout the shift. Heart rhythm sinus/first degree to Aifib. She does have a history of A fib. Blood sugars have been 95-202 mg/dl today. She has ate most of her meals since diet restarted at lunch. She has had no complaints of pain this shift. 525 ml urinary output noted has been attentive at bedside.
[2023-06-17 20:18] LABS: Glucose Point of Care 214 mg/dL (70-110)
[2023-06-17] MEDS: acetaminophen 325 mg Tablet 650 MG PO (20:24)
[2023-06-18] VITALS (45 sets, daily range): BP systolic 117–178; BP diastolic 52–124; PULSE 78–111; RESP 15–37; TEMP 36.1; O2SAT 83–100
[2023-06-18 05:21] LABS: Basophils % 0.1 %; Hematocrit 27.5 % (36-47); Lymphocytes # 0.4 10^3/uL (0.8-4.8); Lymphocytes % 4.6 %; Mean Corpuscular HGB Conc 28.7 g/dL (30-55); Mean Corpuscular Hemoglobin 28.2 pg (27-33); Mean Corpuscular Volume 98.2 fl (85-98); Mean Platelet Volume 9.4 fL (7.4-10.4); Monocytes # 0.4 10^3/uL (0.2-0.9); Monocytes % 5.4 %; Neutrophils # 6.78 10^3/uL (1.8-7.7); Neutrophils % 89.4 %; Nucleated Red Blood Cells % 0 %; Platelet Count 211 10^3/cmm (157-399); Red Cell Distribution Width 18.4 % (12.1-15.1); White Blood Count 7.59 10^3/uL (3.29-11.43)
[2023-06-18 05:46] LABS: Alanine Aminotransferase 29 U/L (0-33); Albumin Level 3.4 g/dL (3.5-5.2); Alkaline Phosphatase 109 U/L (35-105); Anion Gap 11.7 (5-19); Aspartate Amino Transferase 32 U/L (0-32); Blood Urea Nitrogen 33 mg/dL (8-23); C Reactive Protein 6.7 mg/L (0.0-4.9); Calcium 9.3 mg/dL (8.5-10.5); Carbon Dioxide 38 mmol/L (22-29); Chloride 97 mmol/L (98-107); Globulin 2.9 g/dL (1.3-4.6); Glucose 98 mg/dL (65-115); Osmolality Calculated 301 mOsm/kg (285-295); Potassium 4.7 mmol/L (3.5-5.1); Sodium 142 mmol/L (136-145); Total Bilirubin 0.3 mg/dL (0.15-1.2); Total Protein 6.3 g/dL (6.6-8.7)
--- NOTE | 2023-06-18 05:59 | PC.NURSE ---
Holding insulin aspart 70/30 until breakfast due to blood glucose level of 98.
[2023-06-18] MEDS: levothyroxine 150 mcg Tablet PO (06:02)
[2023-06-18 08:16] LABS: Glucose Point of Care 212 mg/dL (70-110)
[2023-06-18 08:16] LABS: Glucose Point of Care 209 mg/dL (70-110)
[2023-06-18] MEDS: insulin aspart 70/30 100 units/1 mL 60 UNIT SUBCUT ×2 (08:34→17:51)
[2023-06-18] MEDS: insulin lispro 100 unit/1 mL SUBCUT ×4 (08:35→20:41)
[2023-06-18] MEDS: dilTIAZem ER (24HR) 180 mg Capsule PO (08:41)
[2023-06-18] MEDS: sulfaSALAzine 500 mg Tablet PO ×2 (08:41→18:53)
[2023-06-18] MEDS: ferrous gluconate 324 mg Tablet PO (08:42)
[2023-06-18] MEDS: hyDRALAzine 10 mg Tablet PO (08:42)
[2023-06-18] MEDS: potassium chloride ER 20 mEq Tablet PO ×2 (08:42→17:52)
[2023-06-18] MEDS: duloxetine 60 mg Capsule PO (08:42)
[2023-06-18] MEDS: metoprolol tartrate 50 mg Tablet 75 MG PO ×2 (08:43→17:52)
[2023-06-18] MEDS: digoxin 125 mcg Tablet 62.5 MCG PO (08:44)
[2023-06-18] MEDS: pyridostigmine 60 mg Tablet PO (08:44)
[2023-06-18] MEDS: famotidine 20 mg/2 mL INJ IVP ×2 (08:45→20:40)
[2023-06-18 11:13] LABS: Glucose Point of Care 187 mg/dL (70-110)
--- NOTE | 2023-06-18 13:45 | P.PN_ITS ---
Subjective Subjective: Patient stating that she does have BiPAP at home but she does not use because of face mask MsAngel gerard I have notified the case managers to resolve and see if we can help her out she uses home company Currently doing well on room air Signs of fluid load still present Vitals/I&O/Wt Last Vital Signs Temp 96.9 F L 06/18/23 07:30 Pulse 96 06/18/23 12:30 Resp 15 06/18/23 12:30 BP 178/124 06/18/23 12:30 Pulse Ox 91 06/18/23 12:30 O2 Del Method Nasal Cannula 06/18/23 12:30 O2 Flow Rate 3 06/18/23 12:30 FiO2 40 06/17/23 08:56 06/17/23 06/18/23 06/18/23 22:59 06:59 14:59 Intake Total 901.28 / 952.56 240 / 1192.56 700 / 700 Output Total 525 / 525 1400 / 1925 Balance 376.28 / 427.56 -1160 / -732.44 700 / 700 Weight last 48 hrs Weight 106.141 kg Physical Exam Narrative: Patient is awake and alert Currently doing well on 3 L nasal cannula GCS 15 Signs of fluid overload present Abdomen soft S1, S2 GCS 15 Hypertensive Urinary Catheter Management: Manzanares: Cath Placed During This Visit: yes Reason for Continuing Indwelling Catheter: Accurate Measurement of Urinary Outpu t in Critically Ill Patients Urinary Catheter Date of Insertion: 06/16/23 Urinary Catheter Time of Insertion: 18:56 Data 06/18/23 04:29 06/18/23 04:29 A&P Assessment and plan (1) Acute respiratory failure: (2) Somnolence: (3) CHF exacerbation: (4) Hypertensive urgency: Plan Acute diastolic CHF exacerbation Preserved action fraction Continue IV Lasix which I will change to every 12 hours Acute on chronic hypoxia Currently on room air Has BiPAP at home however she has not been compliant in using it We will touch this with her home company to see if we can change her facemask Acute on chronic hypoxic hypercapnic respite failure related to CHF exacerbation Compliance is questionable Patient does not manage her medications on her own She relies on her who works long shifts Acute on chronic kidney disease: Back to baseline Hypertensive urgency Adjust antihypertensive regimen Increase the dose of hydralazine Discontinue steroids [facility] Discharge tomorrow Diagnoses Acute respiratory failure J96.00 Somnolence R40.0 CHF exacerbation I50.9 Hypertensive urgency I16.0
--- NOTE | 2023-06-18 14:18 | PC.SOCIAL ---
Pg 2 IMM Explained to pt Pg 2 IMM. No questions voiced. Provided pt a copy. Initialed, dated, & timed a copy & placed in chart.
[2023-06-18] MEDS: hyDRALAzine 50 mg Tablet PO ×2 (14:55→20:41)
[2023-06-18] MEDS: acetaminophen 325 mg Tablet 650 MG PO ×2 (14:55→20:41)
[2023-06-18] MEDS: FUROsemide 10 mg/mL SDV 4mL 40 MG IVP (14:57)
[2023-06-18 17:38] LABS: Glucose Point of Care 226 mg/dL (70-110)
[2023-06-18] MEDS: lisinopril 20 mg Tablet 40 MG PO (17:53)
[2023-06-18 19:27] LABS: Glucose Point of Care 269 mg/dL (70-110)
--- NOTE | 2023-06-18 19:33 | PC.NURSE ---
Shift summary: Pt rested in the bed until about 1630 when she stated get me out of this bed . She had been offered assistance to get out of bed multiple times prior but she declined wanting to nap in the bed most of the day. She complained a couple of time of not being able to catch her breath. Purse lipped breathing demonstrated and pt encouraged to do it, shortness of breath relieved at that time. It also improved after the Lasix she received this afternoon. She has remained on 3lpm/NC throughout the shift. She has ate her meals well. She has used the BSC 3 x for bowel movements. BM vary from formed to liquid. She has had 1250ml of urine output today.
[2023-06-18] MEDS: cefTRIAXone 1,000 MG in sodium chloride 0.9% (plus) 50 ML 100 MG IV (20:39)
[2023-06-18] MEDS: enoxaparin 40 mg/0.4 mL Syringe SUBCUT (20:40)
[2023-06-18] MEDS: atorvastatin 40 mg Tablet 80 MG PO (20:41)
[2023-06-19] VITALS (51 sets, daily range): BP systolic 93–169; BP diastolic 42–95; PULSE 59–120; RESP 14–36; TEMP 36.4–36.8; O2SAT 90–99
[2023-06-19 00:28] LABS: Glucose Point of Care 51 mg/dL (70-110)
[2023-06-19] MEDS: dextrose 50% syringe 50 mL IVP ×2 (00:34→03:11)
--- NOTE | 2023-06-19 00:47 | PC.NURSE ---
Patient was diaphoretic and complaining of shakiness. Blood Glucose checked. Results were BG of 51. D50 given per hypoglycemia protocol. Dr Bear notified. Orders given to hold Insulin Aspart 70/30.
[2023-06-19 01:15] LABS: Glucose Point of Care 127 mg/dL (70-110)
[2023-06-19 01:46] LABS: Glucose Point of Care 88 mg/dL (70-110)
[2023-06-19] MEDS: FUROsemide 10 mg/mL SDV 4mL 40 MG IVP ×2 (02:01→11:54)
[2023-06-19] MEDS: dextrose 10% 1,000 ML 30 ML IV (02:01)
[2023-06-19 02:48] LABS: Glucose Point of Care 65 mg/dL (70-110)
[2023-06-19 03:54] LABS: Glucose Point of Care 149 mg/dL (70-110)
[2023-06-19 04:20] LABS: Glucose Point of Care 188 mg/dL (70-110)
--- NOTE | 2023-06-19 04:46 | PC.NURSE ---
Patient was more difficult to arouse. Blood sugar was 189. This nurse and Carolyn Mejia RN witnessed patient having word salad. Neurological assessment done. No new deficits noted. Pupil in patients right eye blown due to prior injury. This nurse called to confirm. Prior eye injury not documented in chart or reported during shift change. Dr. Blandon notified. No new orders given.
[2023-06-19 04:54] LABS: Basophils % 0.1 %; Lymphocytes # 0.8 10^3/uL (0.8-4.8); Lymphocytes % 9.5 %; Mean Corpuscular HGB Conc 29.2 g/dL (30-55); Mean Corpuscular Hemoglobin 27.9 pg (27-33); Mean Corpuscular Volume 95.6 fl (85-98); Mean Platelet Volume 9.2 fL (7.4-10.4); Monocytes # 0.9 10^3/uL (0.2-0.9); Monocytes % 10.3 %; Neutrophils # 6.85 10^3/uL (1.8-7.7); Neutrophils % 79.4 %; Nucleated Red Blood Cells % 0 %; Platelet Count 192 10^3/cmm (157-399); Red Blood Count 2.72 10^6/uL (3.85-5.65); Red Cell Distribution Width 18.7 % (12.1-15.1); White Blood Count 8.63 10^3/uL (3.29-11.43)
[2023-06-19 05:16] LABS: Blood Urea Nitrogen 38 mg/dL (8-23); Calcium 9.2 mg/dL (8.5-10.5); Chloride 94 mmol/L (98-107); Glucose 131 mg/dL (65-115); Osmolality Calculated 303 mOsm/kg (285-295); Sodium 141 mmol/L (136-145)
--- NOTE | 2023-06-19 05:18 | CTR_ITS ---
PROCEDURE INFORMATION: Exam: CT Head Without Contrast Exam date and time: 06/19/2023 5:46 AM Age: 72 years old Clinical indication: Altered mental status/memory loss; Patient HX: Patient states that she feels dizzy and slightly confused; Additional info: AMS TECHNIQUE: Imaging protocol: Computed tomography of the head without contrast. Radiation optimization: All CT scans at this facility use at least one of these dose optimization techniques: automated exposure control; mA and/or kV adjustment per patient size (includes targeted exams where dose is matched to clinical indication); or iterative reconstruction. REPORTING DATA: Count of CT and Cardiac NM exams in prior 12 months: This patient has received 6 known CTs and 0 known cardiac nuclear medicine studies in the 12 months prior to the current study. COMPARISON: CT head wo con* [id number] 11/30/2021 5:59 PM RADIATION DOSE METRICS: Total DLP (mGy-cm): 1055.38 FINDINGS: Brain: There is mild to moderate small vessel disease. There is no evidence of acute parenchymal hemorrhage, extra-axial collection, or acute infarction. There is no mass effect, midline shift, or downward herniation. Cerebral ventricles: No ventriculomegaly. Paranasal sinuses: Visualized sinuses are unremarkable. No fluid levels. Mastoid air cells: Visualized mastoid air cells are well aerated. Bones/joints: Unremarkable. No acute fracture. Soft tissues: Unremarkable. CT/CT head wo con* [id number] IMPRESSION: [id number] small vessel disease. No evidence of acute intracranial process.
[2023-06-19 05:22] LABS: Anion Gap 9.8 (5-19); Potassium 3.8 mmol/L (3.5-5.1)
[2023-06-19 05:23] LABS: Carbon Dioxide 41 mmol/L (22-29)
[2023-06-19 05:35] LABS: Glucose Point of Care 135 mg/dL (70-110)
[2023-06-19] MEDS: levothyroxine 150 mcg Tablet PO (06:12)
[2023-06-19 07:10] LABS: Glucose Point of Care 114 mg/dL (70-110)
[2023-06-19] MEDS: digoxin 125 mcg Tablet PO (08:05)
[2023-06-19] MEDS: pyridostigmine 60 mg Tablet PO (08:05)
[2023-06-19] MEDS: metoprolol tartrate 50 mg Tablet 75 MG PO ×2 (08:05→18:08)
[2023-06-19] MEDS: duloxetine 60 mg Capsule PO (08:05)
[2023-06-19] MEDS: hyDRALAzine 50 mg Tablet PO (08:05)
[2023-06-19] MEDS: potassium chloride ER 20 mEq Tablet PO (08:05)
[2023-06-19] MEDS: dilTIAZem ER (24HR) 180 mg Capsule PO (08:05)
[2023-06-19] MEDS: ferrous gluconate 324 mg Tablet PO (08:05)
[2023-06-19] MEDS: famotidine 20 mg/2 mL INJ IVP (08:06)
[2023-06-19 08:14] LABS: Glucose Point of Care 109 mg/dL (70-110)
[2023-06-19 08:59] LABS: ABG PH Result 7.42 (7.35-7.45); Alveolar-Arterial Oxygen Gradi 6.3 mmHg (5-10); Arterial Blood Gas Hematocrit 24.6 % (37-47); Base Excess ABG 16.8 mmol/L (-2.0-2.0); Blood Gas Operator Identificat GD; Blood Gas Sample Site Brachial, right; Blood Gas Sample Type Arterial; Carboxyhemoglobin 1.7 %THgb (0.4-20.1); HCO3 ABG 43.3 mmol/L (22-26); HGB O2 Sat 94.2 % (95-100); Ionized Calcium Level - ABG 1.2 mmol/L (1.1-1.4); Methemoglobin 1.8 % (0.4-1.5); Oxygen Device NC; Oxygen Saturation ABG 97.6; Potassium Level - ABG 3.4 mmol/L (3.5-5.0)
[2023-06-19 09:00] LABS: ABG PCO2 66.3 mmHg (35-45)
[2023-06-19] MEDS: dextrose 50% syringe 50 mL 25 ML IVP (09:32)
[2023-06-19] MEDS: sulfaSALAzine 500 mg Tablet PO ×2 (09:50→17:40)
--- NOTE | 2023-06-19 11:01 | P.PN_ITS ---
Subjective Subjective: Overnight events noted Patient this morning was hypoglycemic and bradycardic Patient is not ready to be discharged Patient does not know any of her medications Stating that her takes care of it ABG this morning showed compensated hypercapnia She was given 1 amp of D5 Check hemoglobin A1c Last A1c was around 7 She should not be taking high units of Lantus considering A1c from last year Recheck today Vitals/I&O/Wt Last Vital Signs Temp 97.6 F 06/19/23 04:19 Pulse 69 06/19/23 10:00 Resp 23 H 06/19/23 10:00 BP 114/49 06/19/23 10:00 Pulse Ox 95 06/19/23 10:00 O2 Del Method BiPAP 06/19/23 10:00 O2 Flow Rate 3 06/19/23 08:30 FiO2 40 06/19/23 09:00 06/18/23 06/19/23 06/19/23 22:59 06:59 14:59 Intake Total 750 / 1450 120 / 120 Output Total 1275 / 1275 3000 / 3000 Balance -525 / 175 -2880 / -2880 Physical Exam Narrative: Patient was arousable Able to answer questions Not confused However going back to sleep right during conversation Requested ABG Nonfocal neuro exam Pupillary asymmetry is chronic Abdomen soft Lower extremity edema improving Manzanares catheter in place Currently patient is on nasal cannula 3 L Urinary Catheter Management: Manzanares: Cath Placed During This Visit: yes Reason for Continuing Indwelling Catheter: Accurate Measurement of Urinary Output in Critically Ill Patients Urinary Catheter Date of Insertion: 06/16/23 Urinary Catheter Time of Insertion: 18:56 Data 06/19/23 04:25 06/19/23 04:25 A&P Assessment and plan (1) Acute respiratory failure: (2) Major depressive disorder, recurrent episode, moderate with anxious distr ess: (3) Somnolence: (4) Hypoglycemia: (5) Anemia: (6) Intermittent atrial fibrillation: (7) Acute and chronic respiratory failure with hypoxia: (8) Seronegative rheumatoid arthritis of both hands: (9) Sleep apnea in adult: (10) Morbid obesity: (11) COPD (chronic obstructive pulmonary disease): Qualifiers: COPD type: unspecified COPD Qualified Code(s): J44.9 - Chronic obstru ctive pulmonary disease, unspecified Plan Acute diastolic CHF exacerbation Adequate urine output Creatinine improving Change Lasix dose to once daily Acute on chronic kidney disease: Creatinine seems around baseline Acute on chronic hypoxia Patient requires BiPAP at night and 3 L of oxygen during the daytime facilities maintenance manager spoke with the HOME company Hypertensive urgency Blood pressure stable today Hypoglycemia patient has been taking high-dose of insulin which she should not be once hemoglobin is around 7 and diabetes Recheck A1c level today She was given 1 amp of D50 Encephalopathy related to hypoglycemia CT head unremarkable Asymmetrical pupils are chronic in nature Patient will need to stay 1 more day for hypoglycemic event, likely will be able to go home within next 24 hours Paroxysmal A-fib, hold digoxin for now considering bradycardia Attestations Medical Necessity Statement*: Discharge tomorrow Diagnoses Acute respiratory failure J96.00 Major depressive disorder, recurrent episode, moderate with anxious distress F33.1 Somnolence R40.0 Hypoglycemia E16.2 Anemia D64.9 Intermittent atrial fibrillation I48.0 Acute and chronic respiratory failure with hypoxia J96.21 Seronegative rheumatoid arthritis of both hands M06.041; M06.042 Sleep apnea in adult G47.30 Morbid obesity E66.01 COPD (chronic obstructive pulmonary disease) J44.9 COPD type: unspecified COPD
[2023-06-19 11:26] LABS: Estmated Average Glucose 105; Hemoglobin A1C 5.3 % (4.0-6.0)
--- NOTE | 2023-06-19 12:02 | PC.NURSE ---
Patient having low blood glucose episodes, Dr. Robert approved holding 1200 dose of Humalog. Patient BG 149 qualifying for 2units, not given.
[2023-06-19 12:08] LABS: Glucose Point of Care 149 mg/dL (70-110)
[2023-06-19 15:24] LABS: Glucose Point of Care 178 mg/dL (70-110)
[2023-06-19 16:57] LABS: Glucose Point of Care 183 mg/dL (70-110)
[2023-06-19] MEDS: insulin lispro 100 unit/1 mL SUBCUT ×2 (17:40→20:35)
[2023-06-19] MEDS: lisinopril 20 mg Tablet 40 MG PO (18:08)
[2023-06-19 20:17] LABS: Glucose Point of Care 244 mg/dL (70-110)
[2023-06-19] MEDS: atorvastatin 40 mg Tablet 80 MG PO (20:34)
[2023-06-19] MEDS: cefTRIAXone 1,000 MG in sodium chloride 0.9% (plus) 50 ML 100 MG IV (20:34)
[2023-06-19] MEDS: enoxaparin 40 mg/0.4 mL Syringe SUBCUT (20:34)
[2023-06-19 22:11] LABS: Glucose Point of Care 204 mg/dL (70-110)
[2023-06-19 23:54] LABS: Glucose Point of Care 161 mg/dL (70-110)
[2023-06-20] VITALS (30 sets, daily range): BP systolic 128–195; BP diastolic 74–116; PULSE 78–120; RESP 16–41; TEMP 36.9; O2SAT 90–96
[2023-06-20] MEDS: acetaminophen 325 mg Tablet 650 MG PO (03:18)
[2023-06-20 04:05] LABS: Basophils % 0.3 %; Eosinophils # 0.1 10^3/uL (0.0-0.8); Eosinophils % 0.9 %; Hematocrit 26.3 % (36-47); Lymphocytes # 1.3 10^3/uL (0.8-4.8); Lymphocytes % 17.7 %; Mean Corpuscular HGB Conc 28.9 g/dL (30-55); Mean Corpuscular Hemoglobin 27.9 pg (27-33); Mean Corpuscular Volume 96.7 fl (85-98); Monocytes # 0.8 10^3/uL (0.2-0.9); Monocytes % 10.6 %; Neutrophils # 4.93 10^3/uL (1.8-7.7); Neutrophils % 69.9 %; Nucleated Red Blood Cells % 0 %; Platelet Count 229 10^3/cmm (157-399); Red Blood Count 2.72 10^6/uL (3.85-5.65); Red Cell Distribution Width 18.5 % (12.1-15.1); White Blood Count 7.05 10^3/uL (3.29-11.43)
[2023-06-20 04:26] LABS: Anion Gap 7.7 (5-19); Blood Urea Nitrogen 29 mg/dL (8-23); Calcium 9.1 mg/dL (8.5-10.5); Chloride 97 mmol/L (98-107); Glucose 119 mg/dL (65-115); Osmolality Calculated 309 mOsm/kg (285-295); Potassium 3.7 mmol/L (3.5-5.1); Sodium 146 mmol/L (136-145)
[2023-06-20 04:31] LABS: Carbon Dioxide 45 mmol/L (22-29)
[2023-06-20] MEDS: levothyroxine 150 mcg Tablet PO (05:15)
[2023-06-20 06:27] LABS: Glucose Point of Care 126 mg/dL (70-110)
[2023-06-20 07:52] LABS: Glucose Point of Care 147 mg/dL (70-110)
[2023-06-20] MEDS: metoprolol tartrate 50 mg Tablet 75 MG PO (08:12)
[2023-06-20] MEDS: insulin lispro 100 unit/1 mL SUBCUT (08:12)
[2023-06-20] MEDS: pyridostigmine 60 mg Tablet PO (08:12)
[2023-06-20] MEDS: ferrous gluconate 324 mg Tablet PO (08:12)
[2023-06-20] MEDS: duloxetine 60 mg Capsule PO (08:12)
[2023-06-20] MEDS: sulfaSALAzine 500 mg Tablet PO (08:14)
--- NOTE | 2023-06-20 08:14 | PM.DCS ---
Discharge Providers Date of Admission: 06/16/23 21:25 Date of Discharge: June 20, 2023 Attending Provider at Admission: Delores Marte MD Attending Provider at Discharge: Tim Robert MD Primary Care Provider: Davion Griggs MD Diagnoses at Discharge Discharge Diagnosis (1) Acute respiratory failure: Status: Acute (2) Major depressive disorder, recurrent episode, moderate with anxious distress: Status: Acute (3) Somnolence: Status: Acute (4) Hypoglycemia: Status: Acute (5) Anemia: Status: Acute (6) Intermittent atrial fibrillation: Status: Chronic (7) Acute and chronic respiratory failure with hypoxia: Status: Acute (8) Seronegative rheumatoid arthritis of both hands: Status: Acute (9) Sleep apnea in adult: Status: Chronic (10) Morbid obesity: Status: Chronic Permanent problem details: She has limited activity tolerance and exertional dyspnea, which affects her ability to exercise and participate in physical activities. (11) COPD (chronic obstructive pulmonary disease): Status: Chronic Qualifiers: COPD type: unspecified COPD Qualified Code(s): J44.9 - Chronic obstructive pulmonary disease, unspecified Permanent problem details: Oxygen dependent, 2 L at baseline Reason for Visit Reason for Visit: SOB; CHEST PAIN Hospital Course Hospital Course 72-year-old female with history of diastolic CHF, uses 2 to 3 L of oxygen at baseline, presented with worsening of shortness of breath, patient was diuresed with IV Lasix which improved her labored breathing, patient has history of A-fib does not take anticoagulating agent because of GI bleed history, hemoglobin trickled down on this admission, 1 unit PRBC requested, patient remained hemodynamically stable, please note she became hypoglycemic after getting her high dose of insulin required multiple amps of D50 patient's hemoglobin is 5.3 she does not need insulin at this point I would like her to put on SGLT2 inhibitor however we are not able to calculate her GFR here, I will let her primary care decide on antihyperglycemic agent Patient has not used her CPAP regularly, we did check with HOME, we will try to get BiPAP approved for her chronic hypoxic hypercapnic respite failure. Overnight pulse ox study completed, ABG consistent with hypercapnia and respiratory acidosis. Physical Exam Narrative: S1, S2 variable Abdomen soft Euvolemic Nonfocal neuro exam Currently on 3 L Pleasant and cooperative Nonfocal neuro exam Patient have asymmetrical pupil right pupil is dilated, which is not a new finding as per the we have not pursued CTA head and neck considering fluctuation of creatinine 1-1.2 Urinary Catheter Management: Manzanares: Cath Placed During This Visit: yes Reason for Continuing Indwelling Catheter: Accurate Measurement of Urinary Output in Critically Ill Patients Urinary Catheter Date of Insertion: 06/16/23 Urinary Catheter Time of Insertion: 18:56 Discharge Data Studies Completed and Pending Completed Studies During Hospitalization Category Date Time Status CT angio chest PE protcl [id number] Stat Cat Scan 06/16/23 20:[address] head wo con* [id number] Routine Cat Scan 06/19/23 05:18 Completed XR chest 1V [id number] Stat Exams 06/16/23 17:50 Completed Pending at discharge Category Date Time Status CA echo doppler complete Routine Exams 06/16/23 21:25 Stop Req Occult Blood Stool [Immunochemical Fecal OCB] Routine Lab 06/20/23 07:08 Uncollected Radiology Impressions Chest X-Ray 06/16/23 17:50 IMPRESSION: 1. Small bilateral right greater than left pleural effusions. 2. Patchy bilateral hilar lower lobe left greater than right airspace infiltrates. 3. Cardiomegaly Chest CTA 06/16/23 20:47 IMPRESSION: 1. Moderate to large bilateral pleural effusions. 2. Pulmonary artery is prominent which can be a finding of pulmonary artery hypertension. 3. Cardiomegaly. 4. Coronary artery atherosclerotic calcifications. 5. Cirrhotic liver suspected. 6. Bilateral dependent airspace infiltrates. 7. Cholecystectomy. ADDENDUM: 06/16/233 Exam is negative for pulmonary embolus. Head CT 06/19/23 05:18 IMPRESSION: [id number] small vessel disease. No evidence of acute intracranial process. Laboratory Results WBC 7.05 10^3/uL (3.29-11.43) 06/20/23 03:25 RBC 2.72 10^6/uL (3.85-5.65) L 06/20/23 03:25 Hgb 7.60 g/dL (11.27-16.99) L 06/20/23 03:25 Hct 26.3 % (36-47) L 06/20/23 03:25 MCV 96.7 fl (85-98) 06/20/23 03:25 MCH 27.9 pg (27-33) 06/20/23 03:25 MCHC 28.9 g/dL (30-55) L 06/20/23 03:25 RDW 18.5 % (12.1-15.1) H 06/20/23 03:25 Plt Count 229 10^3/cmm (157-399) 06/20/23 03:25 MPV 9.0 fL (7.4-10.4) 06/20/23 03:25 Neut % (Auto) 69.9 % 06/20/23 03:25 Lymph % (Auto) 17.7 % 06/20/23 03:25 [place] % (Auto) 10.6 % 06/20/23 03:25 Eos % (Auto) 0.9 % 06/20/23 03:25 Baso % (Auto) 0.3 % 06/20/23 03:25 Neut # (Auto) 4.93 10^3/uL (1.8-7.7) 06/20/23 03:25 Lymph # (Auto) 1.3 10^3/uL (0.8-4.8) 06/20/23 03:25 [place] # (Auto) 0.8 10^3/uL (0.2-0.9) 06/20/23 03:25 Eos # (Auto) 0.1 10^3/uL (0.0-0.8) 06/20/23 03:25 Baso # (Auto) 0.0 10^3/uL (0.0-0.1) 06/20/23 03:25 Nucleated RBC % (auto) 0 % 06/20/23 03:25 Nucleated RBCs # 0.0 /100WBC 06/20/23 03:25 Specimen Type Arterial 06/19/23 08:42 Sample Site Brachial, right 06/19/23 08:42 ABG pH 7.42 (7.35-7.45) 06/19/23 08:42 ABG pCO2 66.3 mmHg (35-45) H* 06/19/23 08:42 ABG pO2 100.0 mmHg (80.0-100.0) 06/19/23 08:42 ABG HCO3 43.3 mmol/L (22-26) H 06/19/23 08:42 ABG O2 Saturation 97.6 06/19/23 08:42 ABG Base Excess 16.8 mmol/L (-2.0-2.0) H 06/19/23 08:42 Memo Test N/a 06/19/23 08:42 A-a O2 Gradient 6.3 mmHg (5-10) 06/19/23 08:42 Hematocrit 24.6 % (37-47) L 06/19/23 08:42 Hgb O2 Saturation 94.2 % (95-100) L 06/19/23 08:42 Carboxyhemoglobin 1.7 %THgb (0.4-20.1) 06/19/23 08:42 Methemoglobin 1.8 % (0.4-1.5) H 06/19/23 08:42 Total Hemoglobin 8.0 g/dL (12-16) L 06/19/23 08:42 Sodium 143.0 mmol/L (131-143) 06/19/23 08:42 Potassium 3.4 mmol/L (3.5-5.0) L 06/19/23 08:42 Glucose 86.0 mg/dL (70-115) 06/19/23 08:42 Ionized Calcium 1.2 mmol/L (1.1-1.4) 06/19/23 08:42 O2 Delivery Device Nc 06/19/23 08:42 O2 Liters/Min 3.0 % 06/19/23 08:42 FiO2 32.0 % 06/19/23 08:42 It Risk Advisor ID Gd 06/19/23 08:42 Sodium 146 mmol/L (136-145) H 06/20/23 03:25 Potassium 3.7 mmol/L (3.5-5.1) 06/20/23 03:25 Chloride 97 mmol/L (98-107) L 06/20/23 03:25 Carbon Dioxide 45 mmol/L (22-29) H* 06/20/23 03:25 Anion Gap 7.7 (5-19) 06/20/23 03:25 BUN 29 mg/dL (8-23) H 06/20/23 03:25 Creatinine 1.0 mg/dL (0.5-0.9) H 06/20/23 03:25 GFR Calculation Not Reportable 06/20/23 03:25 Glucose 119 mg/dL (65-115) H 06/20/23 03:25 POC Glucose 147 mg/dL (70-110) H 06/20/23 07:47 Estimat Average Glucose 105 06/19/23 04:25 Hemoglobin A1c 5.3 % (4.0-6.0) 06/19/23 04:25 Calculated Osmolality 309 mOsm/kg (285-295) H 06/20/23 03:25 Lactic Acid 3.3 mmol/L (0.5-2.2) H 06/16/23 17:56 Lactic Acid (Sepsis) 1.4 mmol/L (0.5-2.2) 06/16/23 21:15 Calcium 9.1 mg/dL (8.5-10.5) 06/20/23 03:25 Phosphorus 4.3 mg/dL (2.5-4.5) 06/17/23 03:57 Magnesium 1.7 mg/dL (1.7-2.3) 06/17/23 03:57 Total Bilirubin 0.3 mg/dL (0.15-1.2) 06/18/23 04:29 AST 32 U/L (0-32) 06/18/23 04:29 ALT 29 U/L (0-33) 06/18/23 04:29 Alkaline Phosphatase 109 U/L (35-105) H 06/18/23 04:29 Troponin T Baseline 24 ng/L (0-10) H 06/16/23 17:56 Troponin T 120 Minute 23.95 ng/L (0-10) H 06/16/23 19:36 Delta Troponin T -0.05 ABS# (0-10) L 06/16/23 19:36 Troponin T Hi Sens 6Hr 19.93 ng/L (0-10) H 06/17/23 01:49 Troponin T Hi Sens 6Hr Delta -4.07 ng/L (0-12) L 06/17/23 01:49 C-Reactive Protein 6.7 mg/L (0.0-4.9) H 06/18/23 04:29 NT-Pro-B Natriuret Pep 2492 pg/mL (0-125) H 06/17/23 03:57 Total Protein 6.3 g/dL (6.6-8.7) L 06/18/23 04:29 Albumin 3.4 g/dL (3.5-5.2) L 06/18/23 04:29 Globulin 2.9 g/dL (1.3-4.6) 06/18/23 04:29 Procalcitonin 0.07 ng/mL (0-0.5) 06/16/23 17:56 Urine Color Yellow (Yellow) 06/16/23 18:52 Urine Appearance Clear (CLEAR) 06/16/23 18:52 Urine pH 5 (5-7) 06/16/23 18:52 Ur Specific [place] 1.020 (1.005-1.030) 06/16/23 18:52 Urine Protein 3+ (Negative) H 06/16/23 18:52 Urine Glucose (UA) Norm (Normal) 06/16/23 18:52 Urine Ketones 1+ (Negative) H 06/16/23 18:52 Urine Blood Neg (Negative) 06/16/23 18:52 Urine Nitrate Negative (Negative) 06/16/23 18:52 Urine Bilirubin Neg (Negative) 06/16/23 18:52 Urine Urobilinogen Neg mg/dL (Negative) 06/16/23 18:52 Ur Leukocyte Esterase Negative (Negative) 06/16/23 18:52 Urine RBC 0-4 /hpf (0-2) H 06/16/23 18:52 Urine WBC 0-4 /hpf (0-5) H 06/16/23 18:52 Ur Squamous Epith Cells 0-4 /hpf (0-5) H 06/16/23 18:52 Amorphous Sediment 2+ /hpf 06/16/23 18:52 Urine Bacteria Trace /hpf (NONE) 06/16/23 18:52 Hyaline Casts 5-10 /lpf H 06/16/23 18:52 Urine Mucus 2+ /hpf 06/16/23 18:52 SARS-CoV-2 Ag (Rapid) negative (Negative) 06/17/23 01:52 Vitals Last Vital Signs Temp 98.3 F 06/19/23 16:00 Pulse 106 H 06/20/23 08:09 Resp 16 06/20/23 08:09 BP 158/101 06/20/23 06:00 Pulse Ox 96 06/20/23 08:09 O2 Del Method Nasal Cannula 06/20/23 08:09 O2 Flow Rate 2 06/20/23 08:09 FiO2 30 10/24/23 17:20 Discharge Plan Discharge Patient Disposition: Home Health Service Condition: Stable Prescriptions: Continued nitroglycerin [Nitrostat] 0.4 mg tablet, sublingual 0.4 mg SUBLINGUAL Q5M PRN (Reason: Chest Pain) Qty: 30 3RF Rx Instructions: MAX 3 DOSES PER EPISODE hydrocodone-acetaminophen 7.5-325 mg tablet 1 tab PO TID PRN (Reason: pain) 30 Days Qty: 90 0RF levothyroxine [Euthyrox] 150 mcg tablet 150 mcg PO QAM calcium carbonate [Calcium 600] 600 mg calcium (1,500 mg) tablet 600 mg PO DAILY mupirocin 2 % ointment 1 applic topical BID Qty: 22 1RF Rx Instructions: Apply to affected area(s) until healed ketoconazole 2 % cream 1 applic topical BID Qty: 60 3RF Rx Instructions: Apply to affected areas in skin folds x 3 weeks then prn for flares folic acid 1 mg tablet 1 mg PO DAILY@08 Qty: 90 1RF duloxetine 60 mg capsule,delayed release(DR/EC) 60 mg PO DAILY@08 Qty: 120 0RF sulfasalazine 500 mg tablet See Rx Instructions .ROUTE .COMPLEX Qty: 60 0RF Dose Instruction: TAKE ONE TABLET BY MOUTH TWICE DAILY @ 9AM & 5PM Rx Instructions: TAKE ONE TABLET BY MOUTH TWICE DAILY @ 9AM & 5PM atorvastatin 80 mg tablet 80 mg PO BEDTIME Qty: 100 3RF hydralazine 10 mg tablet 10 mg PO TID Qty: 270 3RF digoxin 125 mcg (0.125 mg) tablet 125 mcg PO DIRECTED Qty: 75 3RF Rx Instructions: Alternate 1/2 Tab daily, next day 1 tab lisinopril 40 mg tablet 40 mg PO QPM Qty: 30 0RF Hold Instructions: Resume on 12/01/21. Rx Instructions: 1 yr supply was sent to [facility] in February magnesium L-lactate 84 mg tablet extended release 84 mg PO BID Qty: 180 3RF methotrexate sodium 2.5 mg tablet 15 mg PO Q7D Qty: 90 0RF Rx Instructions: ON SATURDAYS Humira Pen 40 mg/0.8 mL pen injector kit See Rx Instructions .ROUTE .COMPLEX Qty: 2 1RF Hold Instructions: Resume on 08/02/21. Dose Instruction: INJECT 40 MG (0.8 ML) SUBCUTANEOUSLY EVERY 14 DAYS (TAKE ON SATURDAYS EVERY 14 DAYS) (BULK) Rx Instructions: INJECT 40 MG (0.8 ML) SUBCUTANEOUSLY EVERY 14 DAYS (TAKE ON SATURDAYS EVERY 14 DAYS) (BULK) acetaminophen [Arthritis Pain Reliever] 650 mg Tablet Extended Release 650 mg PO Q4H PRN (Reason: Pain) cholecalciferol (vitamin D3) [Vitamin D3] 25 mcg (1,000 unit) Tablet 2,000 unit PO DAILY@08 albuterol sulfate 2.5 mg /3 mL (0.083 %) Solution For Nebulization 2.5 mg inhalation TID PRN (Reason: Shortness Of Breath) albuterol sulfate 90 mcg/actuation Hfa Aerosol Inhaler 2 puff INHALATION Q6H PRN (Reason: Shortness Of Breath) docusate sodium [Stool Softener] 250 mg Capsule 250 mg PO BID cyanocobalamin (vitamin B-12) [Vitamin B-12] 500 mcg Tablet 500 mcg PO DAILY chlorpheniramine maleate [ChlorTabs] 4 mg Tablet See Rx Instructions .ROUTE .COMPLEX Rx Instructions: 4 mg orally TID THEN ALTERNATES WITH BENADRYL THEN NEXT DAY diphenhydramine HCl [Benadryl] 25 mg Capsule See Rx Instructions .ROUTE .COMPLEX Rx Instructions: 25MG PO TID THEN ALTERNATES WITH CHLORTAB THE NEXT DAY ferrous gluconate 324 mg (37.5 mg iron) tablet See Rx Instructions .ROUTE .COMPLEX Rx Instructions: ALTERNATE 1 TABLET DAILY WITH 2 TABLETS DAILY pantoprazole 40 mg tablet,delayed release (DR/EC) 40 mg PO BID nystatin 100,000 unit/gram powder 1 applic topical DAILY Qty: 60 0RF sucralfate 1 gram tablet 1 g PO TID tramadol 50 mg tablet 50 mg PO Q4H PRN (Reason: Pain) pyridostigmine bromide 60 mg tablet 60 mg PO .9AM glucose 4 gram tablet,chewable 4 g PO ONCE PRN (Reason: Hypoglycemia) metoprolol succinate 100 mg tablet extended release 24 hr 100 mg PO DAILY furosemide 20 mg tablet 20 mg PO DAILY Qty: 90 0RF Trelegy Ellipta 200-62.5-25 mcg blister with device 1 inh INHALATION DAILY Qty: 28 0RF Changed potassium chloride 20 mEq tablet extended release 20 meq PO DAILY Qty: 180 3RF Discontinued diltiazem HCl [DILT-XR] 180 mg capsule,ext.rel 24h degradable 180 mg PO DAILY Qty: 100 3RF insulin lispro 100 unit/mL insulin pen See Rx Instructions .ROUTE .COMPLEX Rx Instructions: SLIDING SCALE before meals AND BEDTIME-MAX OF 40 UNITS PER DAY 150-200= 0 units 201-250= 2 units 251-300= 4 units 301-350= 6 units 351-400= 8 units Humulin 70/30 U-100 Insulin 100 unit/mL (70-30) suspension 7 unit SUBCUT BID Eliquis 5 mg tablet 5 mg PO Q12H Discharge Orders: Discharge Order (Routine); Ordered 06/20/23 Ordered By: Tim Robert Other Ambulatory Orders: DME: Miscellaneous (Order) Location: None Selected Ordered By: Tim Robert [facility] [Other] [facility] ([facility]) [Outside] Davion Griggs MD [Primary Care Provider] - Patient Instructions: Opioid Safety Discharge Attestations Time Spent in Discharge Care*: greater than 30 min Status at Discharge: Cognitive status at discharge: cognitively intact, Behavioral status at discharge: cooperative, Quality Metrics Clinical Quality Measures [ No reported AMI, CVA or VTE this stay] Coding Level of Care Code Acute Code for Chg Fwd Diagnoses Acute respiratory failure J96.00 Major depressive disorder, recurrent episode, moderate with anxious distress F33.1 Somnolence R40.0 Hypoglycemia E16.2 Anemia D64.9 Intermittent atrial fibrillation I48.0 Acute and chronic respiratory failure with hypoxia J96.21 Seronegative rheumatoid arthritis of both hands M06.041; M06.042 Sleep apnea in adult G47.30 Morbid obesity E66.01 COPD (chronic obstructive pulmonary disease) J44.9 COPD type: unspecified COPD
[2023-06-20] MEDS: sodium chloride 0.9% (100 ml) 100 ML (10:36)
[2023-06-20] MEDS: FUROsemide 10 mg/mL SDV 4mL 40 MG IVP (10:36)
[2023-06-20 11:02] LABS: Glucose Point of Care 212 mg/dL (70-110)
--- NOTE | 2023-06-20 12:28 | PC.SOCIAL ---
IMM Updated Updated pt on IMM. No questions voiced. Provided pt a copy. Initialed, dated, & timed copy in chart.
--- NOTE | 2023-06-20 15:02 | PC.NURSE ---
Discharge delayed due to patient recieving a unit of blood and waiting on to get off of work to pick her up.
== END 2023-06-20 17:15 | disposition home health service (06) | DRG 291 ==
LOC: ER 20:45 → ICU 06-17 06:26
PROVIDERS: Family Medicine; Admitting Provider Internal Medicine; Emergency Provider Physician Assistant; PCP Family Medicine; Visit Provider Internal Medicine
DX: I13.0 Hypertensive heart and chronic kidney disease with heart failure and stage 1 through stage 4 chronic kidney disease, or unspecified chronic kidney disease (principal); I50.33 Acute on chronic diastolic (congestive) heart failure; J96.22 Acute and chronic respiratory failure with hypercapnia; J96.21 Acute and chronic respiratory failure with hypoxia; G93.49 Other encephalopathy; N17.9 Acute kidney failure, unspecified; F33.9 Major depressive disorder, recurrent, unspecified; Z20.822 Contact with and (suspected) exposure to COVID-19; Z99.89 Dependence on other enabling machines and devices; N18.9 Chronic kidney disease, unspecified; E11.22 Type 2 diabetes mellitus with diabetic chronic kidney disease; Z99.81 Dependence on supplemental oxygen; I48.91 Unspecified atrial fibrillation; E11.649 Type 2 diabetes mellitus with hypoglycemia without coma; Z79.891 Long term (current) use of opiate analgesic; Z79.4 Long term (current) use of insulin; J44.9 Chronic obstructive pulmonary disease, unspecified; E66.01 Morbid (severe) obesity due to excess calories; Z68.38 Body mass index [BMI] 38.0-38.9, adult; E03.9 Hypothyroidism, unspecified; F43.10 Post-traumatic stress disorder, unspecified; I16.0 Hypertensive urgency; Z91.198 Patient's noncompliance with other medical treatment and regimen for other reason; Z87.891 Personal history of nicotine dependence; Z87.440 Personal history of urinary (tract) infections; M06.00 Rheumatoid arthritis without rheumatoid factor, unspecified site; K74.60 Unspecified cirrhosis of liver; Z86.16 Personal history of COVID-19; I25.10 Atherosclerotic heart disease of native coronary artery without angina pectoris; F41.9 Anxiety disorder, unspecified; M79.7 Fibromyalgia; D63.1 Anemia in chronic kidney disease; G47.30 Sleep apnea, unspecified
CPT/HCPCS: 36415; 36416; 36430; 36600; 51702; 70450; 71045; 71275; 80048; 80051; 80053; 81001; 82274; 82330; 82805; 82962; 83036; 83605; 83735; 83880; 84100; 84145; 84484; 85025; 86140; 86850; 86900; 86920; 87426; 93005; 94660; 94664; 96372; 96374; 96376; 99285; J0456; J0696; J1650; J1815; J1940; J2930; J3490; J7050; P9016; Q9967

== ENCOUNTER 2023-06-30 17:32 | Observation (INO) | payer MEDICARE, SELFPAY ==
[2023-06-30] VITALS (25 sets, daily range): BP systolic 114–199; BP diastolic 57–99; PULSE 70–134; RESP 12–43; TEMP 36.4–36.9; O2SAT 67–100; BMI 37.8
--- NOTE | 2023-06-30 17:38 | ECG_ITS ---
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 Measurements Intervals Union Rate: 120 P: 0 MT: 0 QRS: -81 QRSD: 144 T: 84 QT: 327 QTc: 463 Interpretive Statements ATRIAL FIBRILLATION WITH RAPID VENTRICULAR RESPONSE RIGHT BUNDLE BRANCH BLOCK [120+ ms QRS DURATION, UPRIGHT V1, 40+ ms S IN I/aVL/V4/V5/V6] LEFT ANTERIOR FASCICULAR BLOCK [QRS AXIS <= -45, QR IN I, RS IN II] POSSIBLE SEPTAL MYOCARDIAL INFARCTION , OF INDETERMINATE AGE [30 ms Q WAVE IN V1/V2] ST DEPRESSION, CONSIDER SUBENDOCARDIAL INJURY [0.1+ mV ST DEPRESSION] Compared to ECG 06/16/2023 17:47:57 ST (T wave) deviation now present Myocardial infarct finding still present Electronically Signed On 07-01-2023 15:34:12 MANAGER TECHNICAL SUPPORT by Lucia Oakley M.D. [id number]
--- NOTE | 2023-06-30 17:44 | XRR_ITS ---
PROCEDURE INFORMATION: Exam: XR Chest Exam date and time: 06/30/2023 5:59 PM Age: 72 years old Clinical indication: Cough and shortness of breath; Prior surgery; Surgery date: 6+ months; Surgery type: Thyroid. Ptca. Gb; Patient HX: Cough with SOB. ; Additional info: Dyspnea/cough TECHNIQUE: Imaging protocol: Radiologic exam of the chest. Views: 1 view. COMPARISON: CR (CHEST, ) 06/16/2023 6:17 PM FINDINGS: Lungs: Patchy bilateral largely left lower lobe ground-glass airspace opacities may reflect alveolar edema and/or pneumonic infiltrates. Pleural spaces: Small right pleural effusion. Heart/Mediastinum: Cardiomegaly, interstitial edema and mild pulmonary vascular congestion. Bones/joints: Unremarkable. XR/XR chest 1V portable [id number] IMPRESSION: 1. Small right pleural effusion. 2. Cardiomegaly, interstitial edema and mild pulmonary vascular congestion. 3. Patchy bilateral largely left lower lobe ground-glass airspace opacities may reflect alveolar edema and/or pneumonic infiltrates.
[2023-06-30] MEDS: dilTIAZem 5 mg/mL SDV 5 mL 20 MG IVP (17:53)
[2023-06-30 17:56] LABS: Basophils # 0.1 10^3/uL (0.0-0.1); Basophils % 0.7 %; Eosinophils # 0.1 10^3/uL (0.0-0.8); Eosinophils % 0.9 %; Hematocrit 34.1 % (36-47); Lymphocytes # 2.1 10^3/uL (0.8-4.8); Lymphocytes % 15.7 %; Mean Corpuscular HGB Conc 28.2 g/dL (30-55); Mean Corpuscular Hemoglobin 28.6 pg (27-33); Mean Corpuscular Volume 101.5 fl (85-98); Mean Platelet Volume 9.2 fL (7.4-10.4); Monocytes % 7.5 %; Neutrophils # 9.99 10^3/uL (1.8-7.7); Neutrophils % 74.5 %; Nucleated Red Blood Cells % 0.3 %; Platelet Count 356 10^3/cmm (157-399); Red Blood Count 3.36 10^6/uL (3.85-5.65); Red Cell Distribution Width 18.2 % (12.1-15.1); White Blood Count 13.43 10^3/uL (3.29-11.43)
[2023-06-30 17:56] LABS: ABG PCO2 65.9 mmHg (35-45); ABG PH Result 7.21 (7.35-7.45); Alveolar-Arterial Oxygen Gradi 13.8 mmHg (5-10); Arterial Blood Gas Hematocrit 29.3 % (37-47); Base Excess ABG -2.4 mmol/L (-2.0-2.0); Blood Gas Allen Test Pos; Blood Gas Operator Identificat AMH; Blood Gas Sample Site Radial, right; Blood Gas Sample Type Arterial; Carboxyhemoglobin 0.5 %THgb (0.4-20.1); HCO3 ABG 26.2 mmol/L (22-26); HGB O2 Sat 85.6 % (95-100); Ionized Calcium Level - ABG 1.3 mmol/L (1.1-1.4); Methemoglobin 0.8 % (0.4-1.5); Oxygen Device NC; Oxygen Saturation ABG 86.7; PO2 ABG 72.1 mmHg (80.0-100.0); Total Hemoglobin 9.6 g/dL (12-16)
--- NOTE | 2023-06-30 17:56 | ED_ITS ---
HPI - Arrhythmia/Palpitations General: Chief Complaint: Shortness of Breath/Dyspnea Stated Complaint: chest pain, sob Time Seen by Provider: 06/30/23 17:38 Source: patient Mode of arrival: ambulatory History of Present Illness: 72-year-old female presents emergency room complaining of shortness of breath rapid racing heart rate. Patient has known history of atrial fibrillation is O2 dependent 2 to 3 L/min evidently her oxygen bottle read out to get him ready for the persisted. Just mild chest discomfort at time presentation. MD complaint: rapid heart beat and heart racing Duration: constant Severity: moderate Context: occurred during rest Arrhythmia history: atrial fibrillation Associated symptoms: Deny anxiety, cough, diaphoresis, muscle cramps, nausea, paresthesias, pre-syncope, sense of impending doom, short of breath, syncope or vomiting Review of Systems Const: Denies: fever(s), chills or diaphoresis Card: Reports: palpitations, irregular heart rhythm and edema; Denies: chest pain, syncope or pre-syncope Resp: Reports: dyspnea and non-productive cough GI: Denies: abdominal pain, nausea or vomiting : Denies: dysuria, urinary frequency or urinary urgency Musc: Denies: neck pain, back pain or muscle cramps Skin/Breast: Denies: rash Psych: Denies: anxiety PFSH ED PFSH: Medical History Anxiety and depression CHF exacerbation Chronic knee pain Chronic low back pain COPD (chronic obstructive pulmonary disease) Oxygen dependent, 2 L at baseline Coronary artery disease COVID-14 August 2020 Duodenal ulcer due to bacteria Fibromyalgia High risk medication use Hyperlipidemia Hypertension Hypothyroidism Immunization counseling Inflammatory arthritis Intermittent atrial fibrillation Left renal mass Liver cirrhosis Low back pain of over 3 months duration Lung nodule Major depressive disorder, recurrent episode, moderate with anxious distress Narrow complex tachycardia Osteoarthritis of knees, bilateral Poorly controlled diabetes mellitus Psychiatric care Recurrent UTI Seronegative rheumatoid arthritis of both hands Unstable angina Urgency incontinence UTI (urinary tract infection) Surgical History History of cardiac cath History of cholecystectomy History of hysterectomy History of knee replacement History of thyroid surgery Family History Other CAD (coronary artery disease) Cancer Denies family history of Anesthesia complication Bleeding disorder Social History Smoking and tobacco/nicotine status: former use of tobacco/nicotine Quit status (tobacco/nicotine): has quit using Year quit tobacco: 2005 Second hand smoke exposure: No Alcohol intake: never Substance/Drug Use: never Adopted: No Caregiver/support person: No Lives independently: No Household members: spouse Marital status: Current occupational status: retired Current gender identity: Female Physical Exam Const: GENERAL APPEARANCE: cooperative and comfortable ORIENTATION/CONSCIOUSNESS: Yes awake HENMT: COMMON NORMALS: normocephalic, atraumatic and hearing grossly normal bilaterally HEAD & SCALP: normocephalic and atraumatic Resp: COMMON NORMALS: normal respiratory effort, No retractions, No use of accessory muscles and clear to auscultation bilaterally AUSCULTATION: clear to auscultation bilaterally Cardio: COMMON NORMALS: No murmurs present (Cardio) RATE: tachycardic RHYTHM: abnormal rhythm irregularly irregular GI: COMMON NORMALS: Soft to palpation and No hepatosplenomegaly present AUSCULTATION: Yes normoactive bowel sounds PALPATION: Yes Soft to palpation, No Tenderness to palpation present (GI), No Guarding due to palpation present (GI) and Yes No hepatosplenomegaly present Extremity: COMMON NORMALS: normal to inspection, capillary refill normal, no clubbing, cyanosis or edema, no calf tenderness and no pedal edema Skin: COMMON NORMALS: no rashes or lesions noted GENERAL SKIN EXAM: no rashes or lesions noted Course Vital Signs: Vital signs: Vital Signs Temperature 98.5 F 07/03/23 18:38 Pulse Rate 85 07/03/23 18:38 Respiratory Rate 18 07/03/23 18:38 Blood Pressure 159/75 07/03/23 18:38 Pulse Oximetry 96 07/03/23 18:38 Oxygen Delivery Me thod Nasal Cannula 07/03/23 16:00 Oxygen Flow Rate 3 07/03/23 08:00 Fraction of Inspir ed Oxygen 35 07/03/23 01:59 MDM - Arrhythmia/Palpitations Medical Decision Making Hypercapnic respiratory failure started on BiPAP has improved some. Also in A- fib with RVR requiring Cardizem drip maintaining on a Cardizem drip currently will admit discussed with hospitalist. Other possible etiologies chest pain include pneumonia acute coronary syndrome Differential Diagnosis Likely sinus tachycardia, artial fibrillation, artial flutter and supraven tricular tachycardia Medical Records I reviewed the patient's medical records. Lab Data I reviewed the patient's lab results. 07/03/23 04:27 07/03/23 04:27 Radiology Impressions Chest X-Ray 06/30/23 17:44 IMPRESSION: 1. Small right pleural effusion. 2. Cardiomegaly, interstitial edema and mild pulmonary vascular congestion. 3. Patchy bilateral largely left lower lobe ground-glass airspace opacities may reflect alveolar edema and/or pneumonic infiltrates. Chest CT 06/30/23 19:27 IMPRESSION: Moderate bilateral pleural effusions, right greater than left, with bibasilar atelectasis, similar to prior. Laboratory Results WBC 13.43 10^3/uL (3.29-11.43) H 06/30/23 17:50 RBC 3.36 10^6/uL (3.85-5.65) L 06/30/23 17:50 Hgb 9.60 g/dL (11.27-16.99) L 06/30/23 17:50 Hct 34.1 % (36-47) L 06/30/23 17:50 MCV 101.5 fl (85-98) H 06/30/23 17:50 MCH 28.6 pg (27-33) 06/30/23 17:50 MCHC 28.2 g/dL (30-55) L 06/30/23 17:50 RDW 18.2 % (12.1-15.1) H 06/30/23 17:50 Plt Count 356 10^3/cmm (157-399) 06/30/23 17:50 MPV 9.2 fL (7.4-10.4) 06/30/23 17:50 Neut % (Auto) 74.5 % 06/30/23 17:50 Lymph % (Auto) 15.7 % 06/30/23 17:50 [place] % (Auto) 7.5 % 06/30/23 17:50 Eos % (Auto) 0.9 % 06/30/23 17:50 Baso % (Auto) 0.7 % 06/30/23 17:50 Neut # (Auto) 9.99 10^3/uL (1.8-7.7) H 06/30/23 17:50 Lymph # (Auto) 2.1 10^3/uL (0.8-4.8) 06/30/23 17:50 [place] # (Auto) 1.0 10^3/uL (0.2-0.9) H 06/30/23 17:50 Eos # (Auto) 0.1 10^3/uL (0.0-0.8) 06/30/23 17:50 Baso # (Auto) 0.1 10^3/uL (0.0-0.1) 06/30/23 17:50 Nucleated RBC % (auto) 0.3 % 06/30/23 17:50 Nucleated RBCs # 0.0 /100WBC 06/30/23 17:50 Specimen Type Arterial 06/30/23 17:45 Sample Site Radial, right 06/30/23 17:45 ABG pH 7.21 (7.35-7.45) L 06/30/23 17:45 ABG pCO2 65.9 mmHg (35-45) H* 06/30/23 17:45 ABG pO2 72.1 mmHg (80.0-100.0) L 06/30/23 17:45 ABG HCO3 26.2 mmol/L (22-26) H 06/30/23 17:45 ABG O2 Saturation 86.7 06/30/23 17:45 ABG Base Excess -2.4 mmol/L (-2.0-2.0) L 06/30/23 17:45 Memo Test Pos 06/30/23 17:45 A-a O2 Gradient 13.8 mmHg (5-10) H 06/30/23 17:45 Hematocrit 29.3 % (37-47) L 06/30/23 17:45 Hgb O2 Saturation 85.6 % (95-100) L 06/30/23 17:45 Carboxyhemoglobin 0.5 %THgb (0.4-20.1) 06/30/23 17:45 Methemoglobin 0.8 % (0.4-1.5) 06/30/23 17:45 Total Hemoglobin 9.6 g/dL (12-16) L 06/30/23 17:45 Sodium 140.0 mmol/L (131-143) 06/30/23 17:45 Potassium 4.0 mmol/L (3.5-5.0) 06/30/23 17:45 Glucose 374.0 mg/dL (70-115) H 06/30/23 17:45 Ionized Calcium 1.3 mmol/L (1.1-1.4) 06/30/23 17:45 O2 Delivery Device Nc 06/30/23 17:45 O2 Liters/Min 4.0 % 06/30/23 17:45 FiO2 36.0 % 06/30/23 17:45 Conference And Event Organiser ID [email or web address] 06/30/23 17:45 Sodium 140 mmol/L (136-145) 06/30/23 17:50 Potassium 4.4 mmol/L (3.5-5.1) 06/30/23 17:50 Chloride 96 mmol/L (98-107) L 06/30/23 17:50 Carbon Dioxide 26 mmol/L (22-29) 06/30/23 17:50 Anion Gap 22.4 (5-19) H 06/30/23 17:50 BUN 18 mg/dL (8-23) 06/30/23 17:50 Creatinine 1.2 mg/dL (0.5-0.9) H 06/30/23 17:50 GFR Calculation Not Reportable 06/30/23 17:50 Glucose 300 mg/dL (65-115) H 06/30/23 17:50 Calculated Osmolality 303 mOsm/kg (285-295) H 06/30/23 17:50 Calcium 9.8 mg/dL (8.5-10.5) 06/30/23 17:50 Iron 32 ug/dL (37-145) L 06/30/23 19:30 TIBC 244 mcg/dl 06/30/23 19:30 % Saturation 13.1 % (20-50) L 06/30/23 19:30 Unsat Iron Binding 212 ug/dL (112-347) 06/30/23 19:30 Total Bilirubin 0.4 mg/dL (0.15-1.2) 06/30/23 17:50 AST 35 U/L (0-32) H 06/30/23 17:50 ALT 36 U/L (0-33) H 06/30/23 17:50 Alkaline Phosphatase 142 U/L (35-105) H 06/30/23 17:50 Troponin T Baseline 31 ng/L (0-10) H 06/30/23 17:50 Troponin T 120 Minute 27.95 ng/L (0-10) H 06/30/23 19:30 Delta Troponin T -3.05 ABS# (0-10) L 06/30/23 19:30 NT-Pro-B Natriuret Pep 4476 pg/mL (0-125) H 06/30/23 17:50 Total Protein 6.3 g/dL (6.6-8.7) L 06/30/23 17:50 Albumin 3.9 g/dL (3.5-5.2) 06/30/23 17:50 Globulin 2.4 g/dL (1.3-4.6) 06/30/23 17:50 Vitamin B12 1354 pg/mL (232-1245) H 06/30/23 19:30 Procalcitonin 0.13 ng/mL (0-0.5) 06/30/23 19:30 TSH 4.15 uIU/mL (0.27-4.20) 06/30/23 19:30 Digoxin 1.0 ng/mL (0.6-1.2) 06/30/23 19:30 All radiology interpretation(s) finalized by discharge Discharge Plan Discharge Patient Disposition: Admitted As Inpatient Admit Provider: Michael Buenrostro Clinical Impression: Atrial fibrillation with RVR, Acute and chronic respiratory failure with hypercapnia, Morbid obesity, Acute exacerbation of CHF (congestive heart failure) Condition: Stable Discharge Diet: Cardiac Discharge Activity: Resume usual activity Coding Level of Care Code ED Ground Crew Lines Person for Dougie Samson
[2023-06-30] MEDS: dilTIAZem 100 MG in sodium chloride 0.9% (add-van) 100 ML IV (18:05)
[2023-06-30 18:22] LABS: Troponin(5th) Baseline 31 ng/L (0-10)
[2023-06-30 18:31] LABS: Alanine Aminotransferase 36 U/L (0-33); Albumin Level 3.9 g/dL (3.5-5.2); Alkaline Phosphatase 142 U/L (35-105); Anion Gap 22.4 (5-19); Aspartate Amino Transferase 35 U/L (0-32); Blood Urea Nitrogen 18 mg/dL (8-23); Calcium 9.8 mg/dL (8.5-10.5); Carbon Dioxide 26 mmol/L (22-29); Chloride 96 mmol/L (98-107); Globulin 2.4 g/dL (1.3-4.6); Glucose 300 mg/dL (65-115); NT Pro B Type Natriuretic Pept 4476 pg/mL (0-125); Osmolality Calculated 303 mOsm/kg (285-295); Potassium 4.4 mmol/L (3.5-5.1); Sodium 140 mmol/L (136-145); Total Bilirubin 0.4 mg/dL (0.15-1.2); Total Protein 6.3 g/dL (6.6-8.7)
[2023-06-30] MEDS: FUROsemide 10 mg/mL SDV 4mL 40 MG IVP (18:48)
--- NOTE | 2023-06-30 19:27 | CTR_ITS ---
PROCEDURE INFORMATION: Exam: CT Chest Without Contrast; Diagnostic Exam date and time: 07/01/2023 9:30 AM Age: 72 years old Clinical indication: Shortness of breath; Additional info: Pna TECHNIQUE: Imaging protocol: Diagnostic computed tomography of the chest without contrast. Radiation optimization: All CT scans at this facility use at least one of these dose optimization techniques: automated exposure control; mA and/or kV adjustment per patient size (includes targeted exams where dose is matched to clinical indication); or iterative reconstruction. REPORTING DATA: Count of CT and Cardiac NM exams in prior 12 months: This patient has received 7 known CTs and 0 known cardiac nuclear medicine studies in the 12 months prior to the current study. COMPARISON: CT angio chest PE protcl [id number] 06/16/2023 9:57 PM RADIATION DOSE METRICS: Total DLP (mGy-cm): 627.12 FINDINGS: Lungs: Bibasilar atelectasis. Pleural spaces: Moderate bilateral pleural effusions, right greater than left. No pneumothorax. Heart: Mild cardiomegaly. Coronary arteries: Moderate coronary artery calcification. Lymph nodes: Calcified mediastinal lymph nodes. Vasculature: Calcifications of the aortic and mitral valves. Liver: Nodular surface contour of the liver. Gallbladder and bile ducts: Cholecystectomy. Bones/joints: Unremarkable. No acute fracture. Soft tissues: Unremarkable. CT/CT chest wo con [id number] IMPRESSION: Moderate bilateral pleural effusions, right greater than left, with bibasilar atelectasis, similar to prior.
[2023-06-30 19:52] LABS: Troponin 5 2HR 27.95 ng/L (0-10)
[2023-06-30 19:55] LABS: Troponin 5 2HR Delta -3.05 ABS# (0-10)
--- NOTE | 2023-06-30 20:00 | PC.NURSE ---
Right Eye Patient's right pupil large and unreactive to light while left pupil is reacts briskly. Patient states she has had a previous eye surgery on the right and this is her normal.
--- NOTE | 2023-06-30 20:15 | PC.NURSE ---
Romero 40 mg lasix IVP received at 1848 and patient stating she needs to urinate. Dr. Buenrostro contacted and order received to place a romero catheter.
[2023-06-30] MEDS: piperacillin-tazobactam 3.375 GM in sodium chloride 0.9% (plus) 50 ML IV (20:31)
[2023-06-30] MEDS: methylPREDNISolone sod succ 40 MG in water for injection-sterile 1 ML 12 MG IVP (20:32)
[2023-06-30 20:35] LABS: Procalcitonin 0.13 ng/mL (0-0.5); Thyroid Stimulating Hormone 4.15 uIU/mL (0.27-4.20); Vitamin B12 1354 pg/mL (232-1245)
[2023-06-30] MEDS: heparin 5,000 unit/mL INJ 1 mL 5000 UNIT SUBCUT (20:41)
[2023-06-30] MEDS: levalbuterol 0.63 mg/3 mL Neb INHALATION (20:42)
[2023-06-30] MEDS: atorvastatin 40 mg Tablet 80 MG PO (20:42)
[2023-06-30] MEDS: metoprolol tartrate 50 mg Tablet 100 MG PO (20:42)
[2023-06-30] MEDS: budesonide 0.5 mg/2 mL Neb INHALATION (20:42)
[2023-06-30] MEDS: ipratropium 0.5 mg/2.5 mL Neb INHALATION (20:42)
[2023-06-30] MEDS: sucralfate 1 gm Tablet PO (20:43)
[2023-06-30 20:46] LABS: Iron 32 ug/dL (37-145); Percent Saturation 13.1 % (20-50); Total Iron Binding Capacity 244 mcg/dl; Unsaturated Iron Binding 212 ug/dL (112-347)
--- NOTE | 2023-06-30 20:57 | ECG_ITS ---
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 Measurements Intervals [place] Rate: 82 P: 0 SC: 0 QRS: -77 QRSD: 145 T: 154 QT: 414 QTc: 485 Interpretive Statements ATRIAL FIBRILLATION LEFT AXIS DEVIATION [QRS AXIS < -30] RIGHT BUNDLE BRANCH BLOCK [120+ ms QRS DURATION, UPRIGHT V1, 40+ ms S IN I/aVL/V4/V5/V6] POSSIBLE ANTEROSEPTAL MYOCARDIAL INFARCTION , OF INDETERMINATE AGE [30 ms Q WAVE IN V1-V4] Compared to ECG 06/30/2023 17:38:28 Left-axis deviation now present Left anterior fascicular block no longer present ST (T wave) deviation no longer present Myocardial infarct finding still present Electronically Signed On 07-01-2023 5:51:39 BOARD LAYER by Lucia Oakley M.D. [id number]
[2023-06-30 21:10] LABS: Add Urine Microscopic? NO; Charge for UA Resulting for Rev
[2023-06-30 21:16] LABS: Bilirubin Urine Neg (Negative); Blood Urine Neg (Negative); Glucose Urine UA Norm (Normal); Ketones Urine Negative (Negative); Leukocyte Esterase Urine Negative (Negative); Nitrate Urine Negative (Negative); Protein Urine Neg (Negative); Specific Gravity, Urine 1.005 (1.005-1.030); Urine Appearance Clear (CLEAR); Urine Color Yellow (Yellow); Urobilinogen Urine Neg (Negative); pH Urine 5 (5-7)
[2023-06-30] MEDS: TRAMadol 50 mg Tablet PO (21:21)
--- NOTE | 2023-06-30 21:51 | PM.HP ---
Providers/Chief Complaint Admitting Physician: Michael Buenrostro MD Primary Care Provider: Davion Griggs MD Chief Complaint: chest pain, sob History of Present Illness Myesha Parker is a 72 year old female with history of diastolic CHF, seronegative RA , on Humira, COPD, uses 2 to 3 L of oxygen at baseline and Bipap at home, A fib not on a/c due tp recurrent falls, presented with worsening of shortness of breath. Patient was recently discharged here on 06/20 after management of acute on chronic CHF exacerbation, reportedly was back to baseline health until 2-3 days ago when she started c/o increasing dyspea. Also had c/o palpitations. In Er she was found to have acute on chronic hypoxic and hypercapneic respiratory failure and a fib with RVR with HR 140s. She was placed on Bipap and also started on cardizem gtt. she denies any chest pain, cough or increased sputum production. Denies fever. Review of Systems General: Reports: 10 or more systems reviewed and unremarkable except in HPI and below Const: Denies: fever(s), chills or body aches Eyes: Denies: change in vision, blurry vision or photophobia ENMT: Reports: hoarseness; Denies: throat pain, enlarged tonsils, odynophagia or nasal congestion Card: Denies: chest pain, palpitations, irregular heart rhythm, edema, swelling of feet/ankles, lightheadedness, pre-syncope, dyspnea on exertion or orthopnea Resp: Denies: dyspnea, productive cough, non-productive cough, wheezing, stridor, pain on inspiration, change in phlegm color, hemoptysis or chest congestion GI: Denies: abdominal pain, nausea, vomiting, hematemesis, coffee ground emesis, dysphagia, heartburn, diarrhea, constipation, GI cramping, change in stool character, hematochezia or melena : Denies: flank pain, difficulty voiding, dysuria, urinary frequency, urinary urgency, urinary hesitancy or hematuria Musc: Denies: neck pain, back pain, extremity pain, joint swelling, joint warmth or deformity Neuro: Denies: headache(s), numbness in extremities, weakness in extremities, sensory changes, difficulty walking, frequent falls, dizziness, vertigo, behavioral changes, Slurred speech present or seizure-like activity Psych: Denies: anxiety, depression, suicidal ideation or homicidal ideation Endo: Denies: polyuria, polydipsia, tired all the time, cold intolerance or hot flashes [place]/Lymph: Denies: easy bruising or easy bleeding Medications/Allergies Home Medications Medication Instructions Recorded Confirmed Last Taken Type acetaminophen 650 mg 650 mg PO Q4H PRN Pain 10/12/19 06/17/23 11/04/21 History tablet,extended release (Arthritis Pain Reliever) cholecalciferol (vitamin D3) 25 2,000 unit PO DAILY@08 10/12/19 06/17/23 06/16/23 History mcg (1,000 unit) tablet (Vitamin D3) albuterol sulfate 2.5 mg/3 mL 2.5 mg inhalation TID PRN 10/08/20 06/17/23 Unknown History (0.083 %) solution for nebulization Shortness Of Breath nitroglycerin 0.4 mg sublingual 0.4 mg sublingual Q5M PRN Chest 02/08/21 06/17/23 Unknown Rx tablet (Nitrostat) Pain #30 tabs albuterol sulfate 90 mcg/actuation 2 puff inhalation Q6H PRN 03/16/21 06/17/23 Unknown History aerosol inhaler Shortness Of Breath chlorpheniramine maleate 4 mg See Rx Instructions .Route .COMPLEX 03/16/21 06/17/23 05/06/21 History tablet (ChlorTabs) cyanocobalamin (vitamin B-12) 500 500 mcg PO DAILY 03/16/21 06/17/23 06/16/23 History mcg tablet (Vitamin B-12) diphenhydramine HCl 25 mg capsule See Rx Instructions .Route .COMPLEX 03/16/21 06/17/23 05/05/21 History (Benadryl) docusate sodium 250 mg capsule 250 mg PO BID 03/16/21 06/17/23 06/16/23 History (Stool Softener) ferrous gluconate 324 mg (37.5 mg See Rx Instructions .Route .COMPLEX 05/06/21 06/17/23 06/16/23 History iron) tablet hydrocodone 7.5 mg-acetaminophen 1 tab PO TID PRN pain 30 days #90 06/21/21 06/17/23 09/13/21 10:00 Rx 325 mg tablet tabs 1/2 tab calcium carbonate 600 mg calcium 600 mg PO DAILY 06/27/21 06/17/23 06/16/23 History (1,500 mg) tablet (Calcium) levothyroxine 150 mcg tablet 150 mcg PO QAM 06/27/21 06/17/23 06/16/23 History (Euthyrox) pantoprazole 40 mg tablet,delayed 40 mg PO BID 09/13/21 06/17/23 06/16/23 History release nystatin 100,000 unit/gram topical 1 applic topical DAILY #60 grams 11/29/21 06/17/23 Unknown Rx powder mupirocin 2 % topical ointment 1 applic topical BID #22 grams 03/27/22 06/17/23 Unknown Rx ketoconazole 2 % topical cream 1 applic topical BID #60 grams 07/04/22 06/17/23 Unknown Rx folic acid 1 mg tablet 1 mg PO DAILY@08 #90 tabs 01/10/23 06/17/23 06/16/23 Rx duloxetine 60 mg capsule,delayed 60 mg PO DAILY@08 #120 caps 02/01/23 06/17/23 06/16/23 Rx release sulfasalazine 500 mg tablet See Rx Instructions .Route 04/02/23 06/17/23 06/16/23 Rx .COMPLEX #60 tabs atorvastatin 80 mg tablet 80 mg PO BEDTIME #100 tabs 04/03/23 06/17/23 06/15/23 Rx digoxin 125 mcg (0.125 mg) tablet 125 mcg PO DIRECTED #75 tabs 04/03/23 06/30/23 06/30/23 09:00 Rx 1 tablet hydralazine 10 mg tablet 10 mg PO TID #270 tabs 04/03/23 06/17/23 06/16/23 Rx lisinopril 40 mg tablet 40 mg PO QPM #30 tabs 04/03/23 06/17/23 06/15/23 Rx magnesium L-lactate 84 mg 84 mg PO BID #180 tabs 04/03/23 06/17/23 06/16/23 Rx tablet,extended release pyridostigmine bromide 60 mg tablet 60 mg PO .9AM 04/17/23 06/17/23 06/16/23 History sucralfate 1 gram tablet 1 g PO TID 04/17/23 06/17/23 Unknown History tramadol 50 mg tablet 50 mg PO Q4H PRN Pain 04/17/23 06/17/23 Unknown History methotrexate sodium 2.5 mg tablet 15 mg PO Q7D #90 tabs 04/24/23 06/17/23 06/16/23 Rx glucose 4 gram chewable tablet 4 g PO ONCE PRN Hypoglycemia 06/17/23 06/17/23 Unknown History metoprolol succinate 100 mg 100 mg PO DAILY 06/17/23 06/17/23 06/16/23 History tablet,extended release 24 hr fluticasone fur. 200 mcg-umeclid 1 inh inhalation DAILY #28 ea 06/20/23 06/17/23 Unknown Rx 62.5 mcg-vilant 25 mcg inhalat.powder (Trelegy Ellipta) furosemide 20 mg tablet 20 mg PO DAILY #90 tabs 06/20/23 Unknown Rx potassium chloride 20 mEq 20 meq PO DAILY #180 tabs 06/20/23 06/17/23 06/16/23 Rx tablet,extended release adalimumab 40 mg/0.8 mL See Rx Instructions .Route 06/26/23 Unknown Rx subcutaneous pen kit (Humira Pen) .COMPLEX #2 ea Allergies Allergy/AdvReac Type Severity Reaction Status Date / Time adhesive tape Allergy rash Verified 06/30/23 17:49 cinnamon Allergy sinus Verified 06/30/23 17:49 codeine Allergy unknown Verified 06/30/23 17:49 cedar Allergy sinus Uncoded 06/30/23 17:49 pine Allergy sinus Uncoded 06/30/23 17:49 pork food Allergy ADR-Nausea Uncoded 06/30/23 17:49 PFSH Acute PFSH: Medical History Anxiety and depression CHF exacerbation Chronic knee pain Chronic low back pain COPD (chronic obstructive pulmonary disease) Oxygen dependent, 2 L at baseline Coronary artery disease COVID-14 August 2020 Duodenal ulcer due to bacteria Fibromyalgia High risk medication use Hyperlipidemia Hypertension Hypothyroidism Immunization counseling Inflammatory arthritis Intermittent atrial fibrillation Left renal mass Liver cirrhosis Low back pain of over 3 months duration Lung nodule Major depressive disorder, recurrent episode, moderate with anxious distress Narrow complex tachycardia Osteoarthritis of knees, bilateral Poorly controlled diabetes mellitus Psychiatric care Recurrent UTI Seronegative rheumatoid arthritis of both hands Unstable angina Urgency incontinence UTI (urinary tract infection) Surgical History History of cardiac cath History of cholecystectomy History of hysterectomy History of knee replacement History of thyroid surgery Family History Other CAD (coronary artery disease) Cancer Denies family history of Anesthesia complication Bleeding disorder Social History Smoking and tobacco/nicotine status: former use of tobacco/nicotine Quit status (tobacco/nicotine): has quit using Year quit tobacco: 2005 Second hand smoke exposure: No Alcohol intake: never Substance/Drug Use: never Adopted: No Caregiver/support person: No Lives independently: No Household members: spouse Marital status: Current occupational status: retired Current gender identity: Female Vitals/I&O/Wt Last Vital Signs Temp 98.4 F 06/30/23 17:40 Pulse 94 06/30/23 20:50 Resp 27 H 06/30/23 20:45 BP 119/60 06/30/23 19:16 Pulse Ox 97 06/30/23 20:50 O2 Del Method BiPAP 06/30/23 20:45 O2 Flow Rate 5 06/30/23 17:52 FiO2 45 06/30/23 20:50 06/30/23 06/30/23 06/30/23 06:59 14:59 22:59 Intake Total 13.083 / 13.083 Balance 13.083 / 13.083 Weight last 48 hrs Weight 102.058 kg Physical Exam Narrative: General: No acute distress, AO x3, currently on bipap HEENT: PERRLA, pupils bilaterally equal and reactive, pallors not present Chest: Normal vesicular breath sounds, no added sounds, equal good air entry bilaterally CVS: S1-S2 regular, no murmurs, no tachycardia, no gallops, no rubs Abdomen: Soft, nontender, no organomegaly, bowel sounds present Neuro: No focal deficits, no facial deformity, AO x3, power 5/5 in all limbs Data 06/30/23 17:50 07/01/23 03:44 Other Labs: XRay Report Signed Patient: Myesha Parker Unit #: [id number] : 1950 Age/Sex: 72 / F ADM Date: 06/30/23 Loc: ICU Room/Bed: [place] [address]: Michael Buenrostro MD Ordering Provider/Ordering MD: Kenrick Treviño DO Date of Service: 06/30/23 Procedure(s): XR chest 1V portable [id number] Accession Number(s): [id number] Report Number: [id number] PROCEDURE INFORMATION: Exam: XR Chest Exam date and time: 06/30/2023 5:59 PM Age: 72 years old Clinical indication: Cough and shortness of breath; Prior surgery; Surgery date: 6+ months; Surgery type: Thyroid. Ptca. Gb; Patient HX: Cough with SOB. ; Additional info: Dyspnea/cough TECHNIQUE: Imaging protocol: Radiologic exam of the chest. Views: 1 view. COMPARISON: CR (CHEST, ) 06/16/2023 6:17 PM FINDINGS: Lungs: Patchy bilateral largely left lower lobe ground-glass airspace opacities may reflect alveolar edema and/or pneumonic infiltrates. Pleural spaces: Small right pleural effusion. Heart/Mediastinum: Cardiomegaly, interstitial edema and mild pulmonary vascular congestion. Bones/joints: Unremarkable. XR/XR chest 1V portable [id number] IMPRESSION: 1. ? Small right pleural effusion. 2. ? Cardiomegaly, interstitial edema and mild pulmonary vascular congestion. 3. ? Patchy bilateral largely left lower lobe ground-glass airspace opacities may reflect alveolar edema and/or pneumonic infiltrates. ? ABG Interpretation 1: 06/30/23 17:45 ABG pH 7.21 L ABG pCO2 65.9 H* ABG pO2 72.1 L ABG HCO3 26.2 H ABG O2 Saturation 86.7 ABG Base Excess -2.4 L A&P Assessment and plan (1) Acute and chronic respiratory failure with hypercapnia: likely multifactorial related to acute on chronic COPD exacerbation, Acute on chronic CHF exacerbation precipitated by A fib Currently on Bipap ventilation which is to continue ABG with acute on chronic hypercapneic and hypoxic respiratory failure For COPD exacebation : Methylprednisone 40mg iv q8h duoneb q6h, budesonide q12h empiric zosyn and vancomyicn given concern for pneumonitis and patchy opacities on CXR Check sputum cx , COVID PCR CXR with B/L infiltrates left lower lobe> right ground-glass airspace opacities may reflect alveolar edema and/or pneumonic infiltrates. CT chest to further characterize (2) Atrial fibrillation with RVR: Currently on cardizem gtt start overlap with po metoprolol and attempt to wean off the drip (3) Acute exacerbation of CHF (congestive heart failure): Lasix 40mg iv given in the ER, monitor urine output and renal function continue iv diuresis 40mg iv daily last echocardiogram dating to 2020. Will repeat to assess for interim worsening. Recent TA on 06/16 raising concern for pulmonary HTN<, echo to estimate right sided pressure. Likely acute on chronic CHF with preserved Ef at this point Trop series without concerning troponin trend Plan dvt ppx: Heparin Full code Attestations Medical Necessity Statement*: > 2 midnight anticipated Coding Level of Care Code Acute Code for Chg Fwd High MDM includes number and complexity of problems actively addressed during encounter, amount and/or complexity of data reviewed/ordered and described risk of complication, morbidity or mortality of management as documented Diagnoses Acute and chronic respiratory failure with hypercapnia J96.22 Atrial fibrillation with RVR I48.91 Acute exacerbation of CHF (congestive heart failure) I50.9
[2023-06-30 23:16] LABS: Glucose Point of Care 228 mg/dL (70-110)
[2023-06-30] MEDS: insulin lispro 100 unit/1 mL SUBCUT (23:18)
[2023-06-30] MEDS: vancomycin 1,500 MG/300 ML PIGGYBACK 200 MG IV (23:19)
--- NOTE | 2023-06-30 23:20 | PC.NURSE ---
Insulin/Diet Patient's blood sugar 228 at 2303. Additionally, patient requesting to eat food. Dr. Marie on unit and notified of blood sugar as well as request. Orders received for low dose insulin sliding scale with meals and at bedtime and for a cardiac consistent carb diet to start now. See MAR for details.
--- NOTE | 2023-06-30 23:45 | ECG_ITS ---
[facility] Test Date: 2023-07-01 Pat Name: Myesha Parker Department: Room: [facility] Gender: Female Tax Associate: : 1950 Requested By: Kenrick Al Order Number: [id number] Wilbur MD: Lucia Oakley M.D. Measurements Intervals [place] Rate: 73 P: 0 [place]: 0 QRS: -76 QRSD: 141 T: -38 QT: 420 QTc: 464 Interpretive Statements ATRIAL FIBRILLATION RIGHT BUNDLE BRANCH BLOCK [120+ ms QRS DURATION, UPRIGHT V1, 40+ ms S IN I/aVL/V4/V5/V6] LEFT ANTERIOR FASCICULAR BLOCK [QRS AXIS <= -45, QR IN I, RS IN II] POSSIBLE ANTEROSEPTAL MYOCARDIAL INFARCTION , OF INDETERMINATE AGE [30 ms Q WAVE IN V1-V4] Compared to ECG 06/30/2023 20:57:29 Left anterior fascicular block now present Left-axis deviation no longer present Myocardial infarct finding still present Electronically Signed On 07-01-2023 5:51:27 GREEN BUILDING ENERGY ENGINEER by Lucia Oakley M.D. [id number]
[2023-07-01] VITALS (56 sets, daily range): BP systolic 115–171; BP diastolic 60–119; PULSE 75–104; RESP 14–33; TEMP 36.6–36.9; O2SAT 78–100
[2023-07-01 00:15] LABS: Troponin 5 6HR 27.85 ng/L (0-10)
[2023-07-01 00:19] LABS: Troponin 5 6HR Delta -3.15 ng/L (0-12)
[2023-07-01] MEDS: ipratropium 0.5 mg/2.5 mL Neb INHALATION ×4 (01:23→20:46)
[2023-07-01] MEDS: levalbuterol 0.63 mg/3 mL Neb INHALATION ×4 (01:23→20:46)
[2023-07-01] MEDS: piperacillin-tazobactam 3.375 GM in sodium chloride 0.9% (plus) 50 ML IV ×3 (03:19→20:32)
[2023-07-01] MEDS: methylPREDNISolone sod succ 40 MG in water for injection-sterile 1 ML 12 MG IVP ×2 (03:20→11:59)
[2023-07-01 04:43] LABS: Basophils % 0.3 %; Eosinophils % 0.1 %; Hematocrit 25.7 % (36-47); Lymphocytes # 0.5 10^3/uL (0.8-4.8); Lymphocytes % 7.5 %; Mean Corpuscular HGB Conc 29.2 g/dL (30-55); Mean Corpuscular Hemoglobin 28.2 pg (27-33); Mean Corpuscular Volume 96.6 fl (85-98); Mean Platelet Volume 9.6 fL (7.4-10.4); Monocytes # 0.2 10^3/uL (0.2-0.9); Monocytes % 2.5 %; Neutrophils # 5.94 10^3/uL (1.8-7.7); Nucleated Red Blood Cells % 0 %; Platelet Count 182 10^3/cmm (157-399); Red Blood Count 2.66 10^6/uL (3.85-5.65); Red Cell Distribution Width 17.5 % (12.1-15.1); White Blood Count 6.68 10^3/uL (3.29-11.43)
[2023-07-01 05:01] LABS: Chol HDL Ratio 2.98 mg/dL (0.0-4.40); Cholesterol 152 mg/dL (0-200); HDL Cholesterol 51 mg/dL (60-100); LDL Cholesterol Calculated 78 mg/dL (50-129); LDL HDL Ratio 1.53 RATIO (0.00-3.22); Triglycerides 115 mg/dL (0-150)
[2023-07-01 05:09] LABS: Alanine Aminotransferase 27 U/L (0-33); Albumin Level 3.1 g/dL (3.5-5.2); Alkaline Phosphatase 104 U/L (35-105); Anion Gap 11.7 (5-19); Aspartate Amino Transferase 21 U/L (0-32); Blood Urea Nitrogen 19 mg/dL (8-23); Calcium 9.2 mg/dL (8.5-10.5); Carbon Dioxide 34 mmol/L (22-29); Chloride 101 mmol/L (98-107); Globulin 2.2 g/dL (1.3-4.6); Glucose 170 mg/dL (65-115); Magnesium 1.6 mg/dL (1.7-2.3); Osmolality Calculated 300 mOsm/kg (285-295); Phosphorus 4.6 mg/dL (2.5-4.5); Potassium 4.7 mmol/L (3.5-5.1); Sodium 142 mmol/L (136-145); Total Bilirubin 0.2 mg/dL (0.15-1.2); Total Protein 5.3 g/dL (6.6-8.7)
[2023-07-01 05:25] LABS: Lactic Sepsis W/Reflex 0.9 mmol/L (0.5-2.2)
[2023-07-01 05:31] LABS: Estmated Average Glucose 105; Hemoglobin A1C 5.3 % (4.0-6.0)
--- NOTE | 2023-07-01 05:41 | USCV_ITS ---
Parker Myesha Age: 72 Gender: F : 1950 Exam Date: 07/01/2023 09:13 Ordering Phys: Opal Marie MD Technologist: Cezar Max [place] [facility] [place]: [place]F BP: 144 / 81 HR: 87 Rhythm: Sinus Technical Quality: Adequate MEASUREMENTS (Male / Female) Normal Values 2D ECHO LVOT Diameter 2.1 cm LV Ejection Fraction MOD 2C 58.4 % LV Ejection Fraction 2C AL 59.2 % LA Diameter 3.3 cm LA Width 3.7 cm LA Height 5.8 cm RA Width 3.5 cm RA Height 5.0 cm Aorta at Sinotubular Diameter 2.6 cm IVC Diameter 1.7 cm M-MODE Aortic Annulus Diameter 3.3 cm LA Ao Ratio MM 0.9 MV E Point Septal Separation 0.4 cm DOPPLER AV Peak Velocity 209.3 cm/s LVOT Peak Velocity 108.0 cm/s AV Area Cont Eq vti 1.5 cm squared AV Area Cont Eq pk 1.8 cm squared MV Peak Velocity 152.0 cm/s MV Area PHT 4.2 cm squared Mitral E to A Ratio 2.4 MV E' Velocity 70.5 cm/s Mitral E to LV E' Lateral Ratio 12.6 TR Peak Velocity 299.1 cm/s TR Peak Gradient 35.8 mmHg TR Mean Velocity 216.1 cm/s TR Mean Gradient 21.1 mmHg TR Velocity Time Integral 80.1 cm Right Atrial Pressure 3.0 mmHg Pulmonary Artery Systolic Pressu 38.8 mmHg PV Peak Velocity 124.3 cm/s RV Acceleration Time 0.1 s RV Ejection Time 0.3 s RV AcT/ET 0.3 FINDINGS Left Ventricle Normal left ventricular size, systolic function and wall thickness, with no regional wall motion abnormalities. Left ventricular ejection fraction is estimated at 65 %. Rhythm precludes evaluation of diastolic function. Right Ventricle Normal right ventricular size and systolic function. Right Atrium Normal right atrial size. Left Atrium Mildly increased left atrial size. Mitral Valve Moderate mitral annular calcification. Mildly thickened mitral valve. No mitral valve stenosis. Trace mitral valve regurgitation. Aortic Valve Thickened and calcified aortic valve. Aortic valve sclerosis without stenosis. [id number] aortic valve regurgitation. Tricuspid Valve Structurally normal tricuspid valve. No tricuspid valve stenosis. Pulmonic Valve Pulmonic valve not well visualized. Pericardium No pericardial effusion. Aorta Normal size aortic root and proximal ascending aorta. IVC Normal IVC dimension with >50% respiratory change of the inferior vena cava. CONCLUSIONS 1. Normal left ventricular size, systolic function and wall thickness, with no regional wall motion abnormalities. Left ventricular ejection fraction is estimated at 65 %. 2. Aortic valve sclerosis without stenosis. Vzag-ay-ngajcuxy aortic valve regurgitation. 3. There appears to be mild to moderate AI when comapred to study report dated 07/01/2021. Lucia Oakley MD (Electronically Signed) Final Date: 02 July 2023 08:55 S
[2023-07-01] MEDS: levothyroxine 150 mcg Tablet PO (06:10)
[2023-07-01 06:19] LABS: ABG PCO2 59.8 mmHg (35-45); ABG PH Result 7.38 (7.35-7.45); Arterial Blood Gas Hematocrit 30.9 % (37-47); Base Excess ABG 8.4 mmol/L (-2.0-2.0); Blood Gas Allen Test Pos; Blood Gas Sample Site Radial, left; Blood Gas Sample Type Arterial; HCO3 ABG 35.1 mmol/L (22-26); PO2 ABG 94.4 mmHg (80.0-100.0)
[2023-07-01 06:20] LABS: Blood Gas Operator Identificat JB; Oxygen Device NC
[2023-07-01 07:28] LABS: Glucose Point of Care 218 mg/dL (70-110)
[2023-07-01] MEDS: budesonide 0.5 mg/2 mL Neb INHALATION ×2 (07:45→20:46)
[2023-07-01] MEDS: folic acid 1 mg Tablet PO (08:05)
[2023-07-01] MEDS: pyridostigmine 60 mg Tablet PO (08:05)
[2023-07-01] MEDS: sucralfate 1 gm Tablet PO ×3 (08:05→20:32)
[2023-07-01] MEDS: FUROsemide 10 mg/mL SDV 4mL 40 MG IVP (08:05)
[2023-07-01] MEDS: heparin 5,000 unit/mL INJ 1 mL 5000 UNIT SUBCUT (08:06)
[2023-07-01] MEDS: digoxin 125 mcg Tablet 62.5 MCG PO (08:06)
[2023-07-01] MEDS: cyanocobalamin 1,000 mcg Tablet 500 MCG PO (08:06)
[2023-07-01] MEDS: duloxetine 60 mg Capsule PO (08:06)
[2023-07-01] MEDS: pantoprazole DR 40 mg Tablet PO ×2 (08:07→17:13)
[2023-07-01] MEDS: insulin lispro 100 unit/1 mL SUBCUT ×4 (08:07→22:16)
[2023-07-01] MEDS: metoprolol tartrate 50 mg Tablet 100 MG PO ×2 (08:16→20:31)
--- NOTE | 2023-07-01 09:56 | PC.PHAR ---
SPOUSE STATES ATORVASTATIN 80 MG AND ELIQUIS 5 MG AND HUMULIN 70/30 ALL DC'D. ADELAIRA WAS DUE TO TAKE YESTERDAY (SUNDAY) SPOUSE WILL BRING TODAY AND GIVE TO PT.
[2023-07-01 11:52] LABS: Glucose Point of Care 259 mg/dL (70-110)
[2023-07-01 11:59] LABS: Adenovirus Not Detected (NOT DETECT); Chlamydia Pneumoniae Not Detected (NOT DETECT); Coronavirus 229E,HKU1,NL63,OC4 Not Detected (NOT DETECT); Human Metapneumovirus Not Detected (NOT DETECT); Human Rhinovirus/Enterovirus Not Detected (NOT DETECT); Influenza A Not Detected (NOT DETECT); Influenza A H1 Not Detected (NOT DETECT); Influenza A H1-2009 Not Detected (NOT DETECT); Influenza A H3 Not Detected (NOT DETECT); Influenza B Not Detected (NOT DETECT); Mycoplasma Pneumoniae Not Detected (NOT DETECT); Parainfluenza Virus Type 1 Not Detected (NOT DETECT); Parainfluenza Virus Type 2 Not Detected (NOT DETECT); Parainfluenza Virus Type 3 Not Detected (NOT DETECT); Parainfluenza Virus Type 4 Not Detected (NOT DETECT); Respiratory Syncytial Virus A Not Detected (NOT DETECT); Respiratory Syncytial Virus B Not Detected (NOT DETECT); SARS-COV-2 Not Detected (NOT DETECT)
--- NOTE | 2023-07-01 12:13 | PM.PN ---
Subjective Subjective: Patient is stating that she was not taking her diuretics as prescribed stating they were not able to collect from pharmacy She is endorsing that she was using BiPAP regularly Vitals/I&O/Wt Last Vital Signs Temp 97.8 F 07/01/23 03:30 Pulse 78 07/01/23 10:30 Resp 22 H 07/01/23 10:30 BP 130/91 07/01/23 10:30 Pulse Ox 98 07/01/23 10:30 O2 Del Method Nasal Cannula 07/01/23 07:45 O2 Flow Rate 3 07/01/23 07:45 FiO2 45 07/01/23 03:30 06/30/23 07/01/23 07/01/23 23:59 06:59 14:59 Intake Total 170 / 170 Output Total Balance 170 / 170 Weight last 48 hrs Weight 105.46 kg Weight 102.965 kg Weight 102.058 kg Physical Exam Narrative: Clinical signs of mild fluid overload Currently on nasal cannula Pleasant Eating breakfast Mild edema of legs Pleasant and cooperative GCS 15 nonfocal neuro exam Currently on 3 L Hemodynamically stable Urinary Catheter Management: Manzanares: Cath Placed During This Visit: yes Reason for Continuing Indwelling Catheter: Accurate Measurement of Urinary Output in Critically Ill Patients Urinary Catheter Date of Insertion: 07/01/23 Urinary Catheter Time of Insertion: 20:38 Data 07/01/23 03:44 07/01/23 03:44 A&P Assessment and plan (1) Acute and chronic respiratory failure with hypercapnia: (2) Acute respiratory failure: (3) Major depressive disorder, recurrent episode, moderate with anxious distress: (4) Duodenal ulcer due to bacteria: (5) Anemia: (6) Physical deconditioning: (7) Atrial fibrillation with RVR: (8) Acute exacerbation of CHF (congestive heart failure): (9) Polypharmacy: (10) Inflammatory arthritis: (11) COPD (chronic obstructive pulmonary disease): Qualifiers: COPD type: unspecified COPD Qualified Code(s): J44.9 - Chronic obstructive pulmonary disease, unspecified (12) Morbid obesity: (13) Sleep apnea in adult: Plan Recurrent admissions related to hypoxic hypercapnic respiratory failure Compliance with BiPAP and inhalers is questionable Patient does not know anything about her medication stating that her takes care of her medications Patient might be able to go to rehab/SNF Continue BiPAP overnight 4 to 5 L of oxygen with the date Acute diastolic CHF exacerbation Continue IV diuresis monitor electrolyte imbalance clinical signs of mild fluid overload present A-fib RVR Continue digoxin Cardizem drip turned off Not a candidate to be on Eliquis secondary to GI bleed in the past Acute on chronic anemia Previously FOBT was negative Remote history of GI bleed Discontinue heparin Pleural effusion right greater than left It has not improved since her last admission, will request thoracentesis Hold heparin Patient is from home, we arranged BiPAP on last visit, Compliance is questionable is not home 19/03 He works full-time Hypoglycemia on previous admission I discontinued her glipizide and insulin her hemoglobin A1c was not high which could be low because of her anemia Patient will consider high risk for readmissions considering her functional capacity and dependency on her who works full-time Attestations Medical Necessity Statement*: Continue medical management Diagnoses Acute and chronic respiratory failure with hypercapnia J96.22 Acute respiratory failure J96.00 Major depressive disorder, recurrent episode, moderate with anxious distress F33.1 Duodenal ulcer due to bacteria K26.9; B96.89 Anemia D64.9 Physical deconditioning R53.81 Atrial fibrillation with RVR I48.91 Acute exacerbation of CHF (congestive heart failure) I50.9 Polypharmacy Z79.899 Inflammatory arthritis M19.90 COPD (chronic obstructive pulmonary disease) J44.9 COPD type: unspecified COPD Morbid obesity E66.01 Sleep apnea in adult G47.30
--- NOTE | 2023-07-01 12:43 | ECG_ITS ---
[facility] Test Date: 2023-07-01 Pat Name: Myesha Parker Department: Room: [facility] Gender: Female Ream Cutter: : 1950 Requested By: Tim Robert Order Number: [id number] Wilbur MD: Lucia Oakley M.D. Measurements Intervals [place] Rate: 84 P: 0 [place]: 0 QRS: -76 QRSD: 150 T: 98 QT: 389 QTc: 462 Interpretive Statements ATRIAL FIBRILLATION RIGHT BUNDLE BRANCH BLOCK [120+ ms QRS DURATION, UPRIGHT V1, 40+ ms S IN I/aVL/V4/V5/V6] LEFT ANTERIOR FASCICULAR BLOCK [QRS AXIS <= -45, QR IN I, RS IN II] Compared to ECG 07/01/2023 00:48:19 Myocardial infarct finding no longer present Electronically Signed On 07-01-2023 15:30:07 RISK COMPLIANCE MANAGER by Lucia Oakley M.D. [id number]
[2023-07-01] MEDS: HYDROcodone-acetaminophen 7.5-325 mg Tablet 1 TAB PO (14:45)
[2023-07-01] MEDS: sulfaSALAzine 500 mg Tablet PO (17:13)
[2023-07-01 17:14] LABS: Glucose Point of Care 246 mg/dL (70-110)
[2023-07-01] MEDS: atorvastatin 40 mg Tablet 80 MG PO (20:31)
[2023-07-01] MEDS: methylPREDNISolone sod succ 40 mg/mL INJ IVP (20:33)
[2023-07-01 22:09] LABS: Glucose Point of Care 259 mg/dL (70-110)
[2023-07-02] VITALS (16 sets, daily range): BP systolic 141–179; BP diastolic 80–98; PULSE 62–106; RESP 14–22; TEMP 36.4–36.9; O2SAT 90–100
[2023-07-02] MEDS: vancomycin 1,500 MG/300 ML PIGGYBACK 200 MG IV (00:10)
[2023-07-02] MEDS: levalbuterol 0.63 mg/3 mL Neb INHALATION ×4 (02:10→20:40)
[2023-07-02] MEDS: ipratropium 0.5 mg/2.5 mL Neb INHALATION ×4 (02:11→20:39)
[2023-07-02 03:51] LABS: Basophils % 0.1 %; Eosinophils % 0.1 %; Hematocrit 26.1 % (36-47); Lymphocytes # 0.3 10^3/uL (0.8-4.8); Mean Corpuscular HGB Conc 30.3 g/dL (30-55); Mean Corpuscular Hemoglobin 29.6 pg (27-33); Mean Corpuscular Volume 97.8 fl (85-98); Monocytes # 0.2 10^3/uL (0.2-0.9); Monocytes % 3.5 %; Neutrophils # 6.15 10^3/uL (1.8-7.7); Neutrophils % 90.7 %; Nucleated Red Blood Cells % 0 %; Platelet Count 242 10^3/cmm (157-399); Red Blood Count 2.67 10^6/uL (3.85-5.65); Red Cell Distribution Width 17.8 % (12.1-15.1); White Blood Count 6.79 10^3/uL (3.29-11.43)
[2023-07-02] MEDS: methylPREDNISolone sod succ 40 mg/mL INJ IVP ×3 (04:35→20:55)
[2023-07-02] MEDS: piperacillin-tazobactam 3.375 GM in sodium chloride 0.9% (plus) 50 ML IV ×3 (04:35→21:38)
[2023-07-02 05:34] LABS: Anion Gap 14.3 (5-19); Blood Urea Nitrogen 29 mg/dL (8-23); Calcium 8.7 mg/dL (8.5-10.5); Carbon Dioxide 32 mmol/L (22-29); Chloride 98 mmol/L (98-107); Glucose 211 mg/dL (65-115); Osmolality Calculated 302 mOsm/kg (285-295); Potassium 4.3 mmol/L (3.5-5.1); Sodium 140 mmol/L (136-145)
[2023-07-02] MEDS: levothyroxine 150 mcg Tablet PO (05:49)
[2023-07-02] MEDS: metoprolol tartrate 50 mg Tablet 100 MG PO ×2 (08:08→20:53)
[2023-07-02] MEDS: digoxin 125 mcg Tablet PO (08:08)
[2023-07-02] MEDS: folic acid 1 mg Tablet PO (08:09)
[2023-07-02] MEDS: duloxetine 60 mg Capsule PO (08:09)
[2023-07-02] MEDS: cyanocobalamin 1,000 mcg Tablet 500 MCG PO (08:09)
[2023-07-02] MEDS: pantoprazole DR 40 mg Tablet PO ×2 (08:09→17:34)
[2023-07-02] MEDS: pyridostigmine 60 mg Tablet PO (08:21)
[2023-07-02] MEDS: sucralfate 1 gm Tablet PO ×3 (08:21→20:53)
[2023-07-02] MEDS: FUROsemide 10 mg/mL SDV 4mL 40 MG IVP (08:22)
[2023-07-02] MEDS: sulfaSALAzine 500 mg Tablet PO ×2 (08:22→17:34)
[2023-07-02 08:27] LABS: Glucose Point of Care 353 mg/dL (70-110)
[2023-07-02] MEDS: insulin lispro 100 unit/1 mL SUBCUT ×4 (08:56→22:02)
[2023-07-02] MEDS: budesonide 0.5 mg/2 mL Neb INHALATION ×2 (09:24→20:40)
[2023-07-02 10:59] LABS: Folate Level 19.8 ng/mL (4.8-37.3)
--- NOTE | 2023-07-02 12:42 | P.PN_ITS ---
Subjective Subjective: seen ths am going for thoracentesis today feels better on 4 L NC at this time Vitals/I&O/Wt Last Vital Signs Temp 98.5 F 07/02/23 08:00 Pulse 95 07/02/23 12:00 Resp 16 07/02/23 12:00 BP 168/91 07/02/23 12:00 Pulse Ox 90 07/02/23 12:00 O2 Del Method Nasal Cannula 07/02/23 12:00 O2 Flow Rate 3 07/02/23 09:25 FiO2 35 07/02/23 02:12 07/01/23 07/02/23 07/02/23 22:59 06:59 14:59 Intake Total 410 / 821 350 / 1171 290 / 290 Output Total 1100 / 1100 750 / 1850 Balance -690 / -279 -400 / -679 290 / 290 Weight last 48 hrs Weight 105.46 kg Weight 102.965 kg Weight 102.058 kg Physical Exam Narrative: No overt fluid overload Currently on nasal cannula Pleasant laying in bed Mild edema of legs Pleasant and cooperative GCS 15 nonfocal neuro exam Currently on 4 L Hemodynamically stable Urinary Catheter Management: Manzanares: Cath Placed During This Visit: yes Reason for Continuing Indwelling Catheter: Other Urinary Catheter Date of Insertion: 07/01/23 Urinary Catheter Time of Insertion: 20:38 Data 07/02/23 02:37 07/02/23 04:31 A&P Assessment and plan (1) Acute and chronic respiratory failure with hypercapnia: (2) Acute respiratory failure: (3) Major depressive disorder, recurrent episode, moderate with anxious distre ss: (4) Duodenal ulcer due to bacteria: (5) Anemia: (6) Physical deconditioning: (7) Atrial fibrillation with RVR: (8) Acute exacerbation of CHF (congestive heart failure): (9) Polypharmacy: (10) Inflammatory arthritis: (11) COPD (chronic obstructive pulmonary disease): Qualifiers: COPD type: unspecified COPD Qualified Code(s): J44.9 - Chronic obstructive pulmonary disease, unspecified (12) Morbid obesity: (13) Sleep apnea in adult: Plan Recurrent admissions related to hypoxic hypercapnic respiratory failure Compliance with BiPAP and inhalers is questionable Patient does not know anything about her medication stating that her takes care of her medications Patient might be able to go to rehab/SNF Continue BiPAP overnight 4 to 5 L of oxygen with the date Acute diastolic CHF exacerbation Continue IV diuresis monitor electrolyte imbalance clinical signs of mild fluid overload present A-fib RVR Continue digoxin Cardizem drip turned off Not a candidate to be on Eliquis secondary to GI bleed in the past Acute on chronic anemia Previously FOBT was negative Remote history of GI bleed Discontinue heparin Pleural effusion right greater than left It has not improved since her last admission, awaiting thoracentesis today Hold heparin Patient is from home, we arranged BiPAP on last visit, Compliance is questionable is not home 19/03 He works full-time Hypoglycemia on previous admission I discontinued her glipizide and insulin her hemoglobin A1c was not high which could be low because of her anemia Patient will consider high risk for readmissions considering her functional capacity and dependency on her who works full-time Attestations Medical Necessity Statement*: thoracentesis today possible DC in AM Diagnoses Acute and chronic respiratory failure with hypercapnia J96.22 Acute respiratory failure J96.00 Major depressive disorder, recurrent episode, moderate with anxious distress F33.1 Duodenal ulcer due to bacteria K26.9; B96.89 Anemia D64.9 Physical deconditioning R53.81 Atrial fibrillation with RVR I48.91 Acute exacerbation of CHF (congestive heart failure) I50.9 Polypharmacy Z79.899 Inflammatory arthritis M19.90 COPD (chronic obstructive pulmonary disease) J44.9 COPD type: unspecified COPD Morbid obesity E66.01 Sleep apnea in adult G47.30
--- NOTE | 2023-07-02 13:27 | PC.SOCIAL ---
IMM Update pg 2 of IMM updated and reviewed w/ patient. Copy provided and Copy dated, initialed and placed in chart.
[2023-07-02] MEDS: bisacodyl 5 mg Tablet 10 MG PO (15:33)
[2023-07-02 16:26] LABS: INR 1.01 (0.8-1.2)
[2023-07-02 18:23] LABS: Glucose Point of Care 366 mg/dL (70-110)
[2023-07-02] MEDS: atorvastatin 40 mg Tablet 80 MG PO (20:53)
[2023-07-02 21:48] LABS: Glucose Point of Care 283 mg/dL (70-110)
[2023-07-03] VITALS (12 sets, daily range): BP systolic 112–166; BP diastolic 50–78; PULSE 77–104; RESP 15–22; TEMP 36.4–36.9; O2SAT 95–99
[2023-07-03] MEDS: vancomycin 1,500 MG/300 ML PIGGYBACK 200 MG IV (00:29)
[2023-07-03] MEDS: ipratropium 0.5 mg/2.5 mL Neb INHALATION ×3 (01:59→14:28)
[2023-07-03] MEDS: levalbuterol 0.63 mg/3 mL Neb INHALATION ×3 (01:59→14:28)
[2023-07-03] MEDS: methylPREDNISolone sod succ 40 mg/mL INJ IVP ×2 (04:01→13:26)
[2023-07-03 05:00] LABS: Hematocrit 27.4 % (36-47); Lymphocytes # 0.5 10^3/uL (0.8-4.8); Lymphocytes % 7.2 %; Mean Corpuscular HGB Conc 29.2 g/dL (30-55); Mean Corpuscular Hemoglobin 28.9 pg (27-33); Mean Corpuscular Volume 98.9 fl (85-98); Mean Platelet Volume 9.4 fL (7.4-10.4); Monocytes # 0.3 10^3/uL (0.2-0.9); Monocytes % 4.1 %; Neutrophils # 6.04 10^3/uL (1.8-7.7); Neutrophils % 88.1 %; Nucleated Red Blood Cells % 0 %; Platelet Count 194 10^3/cmm (157-399); Red Blood Count 2.77 10^6/uL (3.85-5.65); Red Cell Distribution Width 17.2 % (12.1-15.1); White Blood Count 6.85 10^3/uL (3.29-11.43)
[2023-07-03 05:30] LABS: Blood Urea Nitrogen 28 mg/dL (8-23); Calcium 8.9 mg/dL (8.5-10.5); Carbon Dioxide 32 mmol/L (22-29); Chloride 100 mmol/L (98-107); Glucose 178 mg/dL (65-115); Magnesium 1.8 mg/dL (1.7-2.3); Osmolality Calculated 302 mOsm/kg (285-295); Sodium 141 mmol/L (136-145)
[2023-07-03 05:32] LABS: Anion Gap 13.1 (5-19); Potassium 4.1 mmol/L (3.5-5.1)
[2023-07-03] MEDS: levothyroxine 150 mcg Tablet PO (06:24)
[2023-07-03] MEDS: piperacillin-tazobactam 3.375 GM in sodium chloride 0.9% (plus) 50 ML IV ×2 (06:25→13:27)
[2023-07-03 06:29] LABS: Glucose Point of Care 213 mg/dL (70-110)
[2023-07-03] MEDS: budesonide 0.5 mg/2 mL Neb INHALATION (08:17)
[2023-07-03] MEDS: cyanocobalamin 1,000 mcg Tablet 500 MCG PO (08:48)
[2023-07-03] MEDS: pyridostigmine 60 mg Tablet PO (08:48)
[2023-07-03] MEDS: sulfaSALAzine 500 mg Tablet PO (08:48)
[2023-07-03] MEDS: folic acid 1 mg Tablet PO (08:49)
[2023-07-03] MEDS: pantoprazole DR 40 mg Tablet PO (08:49)
[2023-07-03] MEDS: metoprolol tartrate 50 mg Tablet 100 MG PO (08:49)
[2023-07-03] MEDS: duloxetine 60 mg Capsule PO (08:49)
[2023-07-03] MEDS: FUROsemide 10 mg/mL SDV 4mL 40 MG IVP (08:49)
[2023-07-03] MEDS: sucralfate 1 gm Tablet PO ×2 (08:49→14:40)
[2023-07-03] MEDS: insulin lispro 100 unit/1 mL SUBCUT (08:50)
[2023-07-03 11:24] LABS: Glucose Point of Care 315 mg/dL (70-110)
--- NOTE | 2023-07-03 13:30 | US_ITS ---
WS: [id number] INDICATION: Pleural effusion TECHNIQUE: Ultrasound chest FINDINGS: Small bilateral pleural effusions with compressive atelectasis in the lung bases. Insuffici ent fluid and acoustic window for safe thoracentesis at this time. IMPRESSION: See above
--- NOTE | 2023-07-03 14:20 | PM.DCS ---
Discharge Providers Date of Admission: 06/30/23 20:36 Date of Discharge: July 03, 2023 Attending Provider at Admission: Michael Buenrostro MD Attending Provider at Discharge: Adriane Terry MD Primary Care Provider: Davion Griggs MD Diagnoses at Discharge Discharge Diagnosis (1) Acute and chronic respiratory failure with hypercapnia: Status: Acute (2) Acute respiratory failure: Status: Acute (3) Major depressive disorder, recurrent episode, moderate with anxious distress: Status: Acute (4) Duodenal ulcer due to bacteria: Status: Acute (5) Anemia: Status: Acute (6) Physical deconditioning: Status: Acute (7) Atrial fibrillation with RVR: Status: Acute (8) Acute exacerbation of CHF (congestive heart failure): Status: Acute (9) Polypharmacy: Status: Chronic (10) Inflammatory arthritis: Status: Acute (11) COPD (chronic obstructive pulmonary disease): Status: Chronic Qualifiers: COPD type: unspecified COPD Qualified Code(s): J44.9 - Chronic obstructive pulmonary disease, unspecified Permanent problem details: Oxygen dependent, 2 L at baseline (12) Morbid obesity: Status: Chronic Permanent problem details: She has limited activity tolerance and exertional dyspnea, which affects her ability to exercise and participate in physical activities. (13) Sleep apnea in adult: Status: Chronic Reason for Visit Reason for Visit: chest pain, sob Hospital Course Hospital Course Patient was recently discharged on 1024 after management of acute on chronic CHF exacerbation and was back to baseline health until 2 to 3 days ago when she started having increasing dyspnea and also palpitations. She was in A-fib with RVR with heart rate in 140s in the ER. She was placed on BiPAP and also Cardizem drip. Patient was diuresed with Lasix 40 IV daily. She was also placed on Solu-Medrol budesonide empirically cover with Zosyn and vancomycin given concern for pneumonitis and patchy opacities on chest x-ray. Imaging study also revealed pleural effusion right greater than left thoracentesis was ordered. Thoracentesis ultrasound did not show enough fluid to be drained and therefore it was deferred at this point. Patient is back to her baseline health with 3 L of nasal cannula oxygen that she normally wears at home. She is doing a lot better. Shortness of breath is also improved. Patient will be discharged home in stable condition at this time. Note that her Eliquis was held at previous admission due to concern for GI bleed. She is currently on sucralfate and Protonix. Patient also had hypoglycemic episode previous admission and is very sensitive to insulin and therefore her insulin has been stopped. She is to follow-up with primary care doctor for diabetes management. Patient was also set up with home health at previous admission and she is to continue to work with them at this point. Physical Exam Narrative: No overt fluid overload Currently on nasal cannula Pleasant laying in bed Mild edema of legs Pleasant and cooperative GCS 15 nonfocal neuro exam Currently on 3 L Hemodynamically stable Urinary Catheter Management: Manzanares: Cath Placed During This Visit: yes Reason for Continuing Indwelling Catheter: Other Urinary Catheter Date of Insertion: 07/01/23 Urinary Catheter Time of Insertion: 20:38 Discharge Data Studies Completed and Pending Completed Studies During Hospitalization Category Date Time Status CT chest wo con [id number] Routine Cat Scan 06/30/23 19:27 Completed XR chest 1V portable [id number] Stat Exams 06/30/23 17:44 Completed CV. echo complete* [id number] Routine Ultrasound 07/01/23 05:41 Completed Pending at discharge Category Date Time Status Sputum Culture and Gram Stain Routine Lab 07/01/23 05:49 Uncollected Vancomycin Trough Timed Lab 07/03/23 23:00 [place] chest [id number] Routine Ultrasound 07/03/23 13:30 Taken Radiology Impressions Chest X-Ray 06/30/23 17:44 IMPRESSION: 1. Small right pleural effusion. 2. Cardiomegaly, interstitial edema and mild pulmonary vascular congestion. 3. Patchy bilateral largely left lower lobe ground-glass airspace opacities may reflect alveolar edema and/or pneumonic infiltrates. Chest CT 06/30/23 19:27 IMPRESSION: Moderate bilateral pleural effusions, right greater than left, with bibasilar atelectasis, similar to prior. Laboratory Results WBC 6.85 10^3/uL (3.29-11.43) 07/03/23 04:27 RBC 2.77 10^6/uL (3.85-5.65) L 07/03/23 04:27 Hgb 8.00 g/dL (11.27-16.99) L 07/03/23 04:27 Hct 27.4 % (36-47) L 07/03/23 04:27 MCV 98.9 fl (85-98) H 07/03/23 04:27 MCH 28.9 pg (27-33) 07/03/23 04:27 MCHC 29.2 g/dL (30-55) L 07/03/23 04:27 RDW 17.2 % (12.1-15.1) H 07/03/23 04:27 Plt Count 194 10^3/cmm (157-399) 07/03/23 04:27 MPV 9.4 fL (7.4-10.4) 07/03/23 04:27 Neut % (Auto) 88.1 % 07/03/23 04:27 Lymph % (Auto) 7.2 % 07/03/23 04:27 [place] % (Auto) 4.1 % 07/03/23 04:27 Eos % (Auto) 0.0 % 07/03/23 04:27 Baso % (Auto) 0.0 % 07/03/23 04:27 Neut # (Auto) 6.04 10^3/uL (1.8-7.7) 07/03/23 04:27 Lymph # (Auto) 0.5 10^3/uL (0.8-4.8) L 07/03/23 04:27 [place] # (Auto) 0.3 10^3/uL (0.2-0.9) 07/03/23 04:27 Eos # (Auto) 0.0 10^3/uL (0.0-0.8) 07/03/23 04:27 Baso # (Auto) 0.0 10^3/uL (0.0-0.1) 07/03/23 04:27 Nucleated RBC % (auto) 0 % 07/03/23 04:27 Nucleated RBCs # 0.0 /100WBC 07/03/23 04:27 PT 13.60 SECONDS (12.1-14.9) 07/02/23 15:58 INR 1.01 (0.8-1.2) 07/02/23 15:58 Specimen Type Arterial 07/01/23 06:06 Sample Site Radial, left 07/01/23 06:06 ABG pH 7.38 (7.35-7.45) 07/01/23 06:06 ABG pCO2 59.8 mmHg (35-45) H 07/01/23 06:06 ABG pO2 94.4 mmHg (80.0-100.0) 07/01/23 06:06 ABG HCO3 35.1 mmol/L (22-26) H 07/01/23 06:06 ABG O2 Saturation 86.7 06/30/23 17:45 ABG Base Excess 8.4 mmol/L (-2.0-2.0) H 07/01/23 06:06 Memo Test Pos 07/01/23 06:06 A-a O2 Gradient 13.8 mmHg (5-10) H 06/30/23 17:45 Hematocrit 30.9 % (37-47) L 07/01/23 06:06 Hgb O2 Saturation 85.6 % (95-100) L 06/30/23 17:45 Carboxyhemoglobin 0.5 %THgb (0.4-20.1) 06/30/23 17:45 Methemoglobin 0.8 % (0.4-1.5) 06/30/23 17:45 Total Hemoglobin 9.6 g/dL (12-16) L 06/30/23 17:45 Sodium 140.0 mmol/L (131-143) 06/30/23 17:45 Potassium 4.0 mmol/L (3.5-5.0) 06/30/23 17:45 Glucose 374.0 mg/dL (70-115) H 06/30/23 17:45 Ionized Calcium 1.3 mmol/L (1.1-1.4) 06/30/23 17:45 O2 Delivery Device Nc 07/01/23 06:06 O2 Liters/Min 2.0 % 07/01/23 06:06 FiO2 36.0 % 06/30/23 17:45 Milk Pasteurizer ID [place]gil 07/01/23 06:06 Sodium 141 mmol/L (136-145) 07/03/23 04:27 Potassium 4.1 mmol/L (3.5-5.1) 07/03/23 04:27 Chloride 100 mmol/L (98-107) 07/03/23 04:27 Carbon Dioxide 32 mmol/L (22-29) H 07/03/23 04:27 Anion Gap 13.1 (5-19) 07/03/23 04:27 BUN 28 mg/dL (8-23) H 07/03/23 04:27 Creatinine 1.0 mg/dL (0.5-0.9) H 07/03/23 04:27 GFR Calculation Not Reportable 07/03/23 04:27 Glucose 178 mg/dL (65-115) H 07/03/23 04:27 POC Glucose 315 mg/dL (70-110) H 07/03/23 11:03 Estimat Average Glucose 105 07/01/23 03:44 Hemoglobin A1c 5.3 % (4.0-6.0) 07/01/23 03:44 Calculated Osmolality 302 mOsm/kg (285-295) H 07/03/23 04:27 Lactic Acid 0.9 mmol/L (0.5-2.2) 07/01/23 03:44 Calcium 8.9 mg/dL (8.5-10.5) 07/03/23 04:27 Phosphorus 4.6 mg/dL (2.5-4.5) H 07/01/23 03:44 Magnesium 1.8 mg/dL (1.7-2.3) 07/03/23 04:27 Iron 32 ug/dL (37-145) L 06/30/23 19:30 TIBC 244 mcg/dl 06/30/23 19:30 % Saturation 13.1 % (20-50) L 06/30/23 19:30 Unsat Iron Binding 212 ug/dL (112-347) 06/30/23 19:30 Total Bilirubin 0.2 mg/dL (0.15-1.2) 07/01/23 03:44 AST 21 U/L (0-32) 07/01/23 03:44 ALT 27 U/L (0-33) 07/01/23 03:44 Alkaline Phosphatase 104 U/L (35-105) 07/01/23 03:44 Troponin T Baseline 31 ng/L (0-10) H 06/30/23 17:50 Troponin T 120 Minute 27.95 ng/L (0-10) H 06/30/23 19:30 Delta Troponin T -3.05 ABS# (0-10) L 06/30/23 19:30 Troponin T Hi Sens 6Hr 27.85 ng/L (0-10) H 06/30/23 23:50 Troponin T Hi Sens 6Hr Delta -3.15 ng/L (0-12) L 06/30/23 23:50 NT-Pro-B Natriuret Pep 4476 pg/mL (0-125) H 06/30/23 17:50 Total Protein 5.3 g/dL (6.6-8.7) L 07/01/23 03:44 Albumin 3.1 g/dL (3.5-5.2) L 07/01/23 03:44 Globulin 2.2 g/dL (1.3-4.6) 07/01/23 03:44 Triglycerides 115 mg/dL (0-150) 07/01/23 03:44 Cholesterol 152 mg/dL (0-200) 07/01/23 03:44 LDL Cholesterol, Calc 78 mg/dL (50-129) 07/01/23 03:44 HDL Cholesterol 51 mg/dL (60-100) L 07/01/23 03:44 LDL/HDL Ratio 1.53 RATIO (0.00-3.22) 07/01/23 03:44 Cholesterol/HDL Ratio 2.98 mg/dL (0.0-4.40) 07/01/23 03:44 Vitamin B12 1354 pg/mL (232-1245) H 06/30/23 19:30 Folate 19.8 ng/mL (4.8-37.3) 07/01/23 03:44 Procalcitonin 0.13 ng/mL (0-0.5) 06/30/23 19:30 TSH 4.15 uIU/mL (0.27-4.20) 06/30/23 19:30 Urine Color Yellow (Yellow) 06/30/23 20:50 Urine Appearance Clear (CLEAR) 06/30/23 20:50 Urine pH 5 (5-7) 06/30/23 20:50 Ur Specific [place] 1.005 (1.005-1.030) 06/30/23 20:50 Urine Protein Neg (Negative) 06/30/23 20:50 Urine Glucose (UA) Norm (Normal) 06/30/23 20:50 Urine Ketones Negative (Negative) 06/30/23 20:50 Urine Blood Neg (Negative) 06/30/23 20:50 Urine Nitrate Negative (Negative) 06/30/23 20:50 Urine Bilirubin Neg (Negative) 06/30/23 20:50 Urine Urobilinogen Neg mg/dL (Negative) 06/30/23 20:50 Ur Leukocyte Esterase Negative (Negative) 06/30/23 20:50 Digoxin 1.0 ng/mL (0.6-1.2) 06/30/23 19:30 Coronavirus 229E (PCR) Not detected (NOT DETECT) 07/01/23 07:40 SARS-CoV-2 (PCR) Not detected (NOT DETECT) 07/01/23 07:40 Vitals Last Vital Signs Temp 97.7 F 07/03/23 12:00 Pulse 84 07/03/23 12:00 Resp 15 07/03/23 12:00 BP 112/50 07/03/23 12:00 Pulse Ox 96 07/03/23 11:08 O2 Del Method Nasal Cannula 07/03/23 11:08 O2 Flow Rate 3 07/03/23 08:00 FiO2 35 07/03/23 01:59 Discharge Plan Discharge Patient Disposition: Home Health Service Condition: Stable Prescriptions: New atorvastatin 40 mg Tablet 80 mg PO BEDTIME 30 Days Qty: 30 0RF sucralfate 1 gram Tablet 1 g PO TID Qty: 30 0RF amoxicillin-pot clavulanate 875-125 mg tablet 1 tab PO BID 4 Days Qty: 8 0RF prednisone 20 mg tablet 40 mg PO DAILY 3 Days Qty: 6 0RF Continued nitroglycerin [Nitrostat] 0.4 mg tablet, sublingual 0.4 mg SUBLINGUAL Q5M PRN (Reason: Chest Pain) Qty: 30 3RF Rx Instructions: MAX 3 DOSES PER EPISODE hydrocodone-acetaminophen 7.5-325 mg tablet 1 tab PO TID PRN (Reason: pain) 30 Days Qty: 90 0RF levothyroxine [Euthyrox] 150 mcg tablet 150 mcg PO QAM calcium carbonate [Calcium 600] 600 mg calcium (1,500 mg) tablet 600 mg PO DAILY folic acid 1 mg tablet 1 mg PO DAILY@08 Qty: 90 1RF duloxetine 60 mg capsule,delayed release(DR/EC) 60 mg PO DAILY@08 Qty: 120 0RF hydralazine 10 mg tablet 10 mg PO TID Qty: 270 3RF digoxin 125 mcg (0.125 mg) tablet 125 mcg PO DIRECTED Qty: 75 3RF Rx Instructions: Alternate 1/2 Tab daily, next day 1 tab lisinopril 40 mg tablet 40 mg PO QPM Qty: 30 0RF Hold Instructions: Resume on 12/01/21. Rx Instructions: 1 yr supply was sent to [facility] in February magnesium L-lactate 84 mg tablet extended release 84 mg PO BID Qty: 180 3RF methotrexate sodium 2.5 mg tablet 15 mg PO Q7D Qty: 90 0RF Rx Instructions: ON SATURDAYS Humira Pen 40 mg/0.8 mL pen injector kit See Rx Instructions .ROUTE .COMPLEX Qty: 2 2RF Hold Instructions: Resume on 08/02/21. Dose Instruction: INJECT 40 MG (0.8 ML) SUBCUTANEOUSLY EVERY 14 DAYS (TAKE ON SATURDAYS EVERY 14 DAYS) (BULK) Rx Instructions: INJECT 40 MG (0.8 ML) SUBCUTANEOUSLY EVERY 14 DAYS (TAKE ON SATURDAYS EVERY 14 DAYS) (BULK) acetaminophen [Arthritis Pain Reliever] 650 mg Tablet Extended Release 650 mg PO Q4H PRN (Reason: Pain) cholecalciferol (vitamin D3) [Vitamin D3] 25 mcg (1,000 unit) Tablet 2,000 unit PO DAILY@08 docusate sodium [Stool Softener] 250 mg Capsule 250 mg PO BID cyanocobalamin (vitamin B-12) [Vitamin B-12] 500 mcg Tablet 500 mcg PO DAILY chlorpheniramine maleate [ChlorTabs] 4 mg Tablet See Rx Instructions .ROUTE .COMPLEX Rx Instructions: 4 mg orally TID THEN ALTERNATES WITH BENADRYL THEN NEXT DAY diphenhydramine HCl [Benadryl] 25 mg Capsule See Rx Instructions .ROUTE .COMPLEX Rx Instructions: 25MG PO TID THEN ALTERNATES WITH CHLORTAB THE NEXT DAY ferrous gluconate 324 mg (37.5 mg iron) tablet See Rx Instructions .ROUTE .COMPLEX Rx Instructions: ALTERNATE 1 TABLET DAILY WITH 2 TABLETS DAILY pantoprazole 40 mg tablet,delayed release (DR/EC) 40 mg PO BID tramadol 50 mg tablet 50 mg PO Q4H PRN (Reason: Pain) pyridostigmine bromide 60 mg tablet 60 mg PO .9AM glucose 4 gram tablet,chewable 4 g PO ONCE PRN (Reason: Hypoglycemia) metoprolol succinate 100 mg tablet extended release 24 hr 100 mg PO DAILY furosemide 20 mg tablet 20 mg PO DAILY Qty: 90 0RF potassium chloride 20 mEq tablet extended release 20 meq PO DAILY Qty: 180 3RF Trelegy Ellipta 200-62.5-25 mcg blister with device 1 inh INHALATION DAILY Qty: 28 0RF sulfasalazine 500 mg tablet 500 mg PO BID Fish Oil 60-90-500 mg Capsule 1 cap PO DAILY Discontinued insulin lispro 100 unit/mL insulin pen See Rx Instructions .ROUTE .COMPLEX Rx Instructions: INJECT 0-8 UNITS SUB-Q PER SLIDING SCALE MORNING AND EVENING DIRECTED (SCALE 0-8 UNITS) (BULK) Discharge Orders: Discharge Order (Routine); Ordered 07/03/23 Ordered By: Adriane Terry Referrals: Davion Griggs MD [Primary Care Provider] - 4-7 days Discharge Diet: Cardiac Discharge Activity: Resume usual activity Patient Instructions: Sucralfate (By mouth), Prednisone (By mouth), Amoxicillin/Clavulanate Potassium (By mouth), Atorvastatin (By mouth) (Lipitor, Atorvaliq), Opioid Safety Discharge Attestations Time Spent in Discharge Care*: greater than 30 min Status at Discharge: Cognitive status at discharge: cognitively intact, Behavioral status at discharge: cooperative, Quality Metrics Clinical Quality Measures [ No reported AMI, CVA or VTE this stay] Coding Level of Care Code 92618 Total time (in minutes) for Discharge: 35 Diagnoses Acute and chronic respiratory failure with hypercapnia J96.22 Acute respiratory failure J96.00 Major depressive disorder, recurrent episode, moderate with anxious distress F33.1 Duodenal ulcer due to bacteria K26.9; B96.89 Anemia D64.9 Physical deconditioning R53.81 Atrial fibrillation with RVR I48.91 Acute exacerbation of CHF (congestive heart failure) I50.9 Polypharmacy Z79.899 Inflammatory arthritis M19.90 COPD (chronic obstructive pulmonary disease) J44.9 COPD type: unspecified COPD Morbid obesity E66.01 Sleep apnea in adult G47.30
[2023-07-03 17:23] LABS: Glucose Point of Care 265 mg/dL (70-110)
== END 2023-07-03 18:40 | disposition home or self-care (01) ==
LOC: ER 17:58 → ICU 19:21 → MEDSURG 07-01 19:56 → ICU 07-06 12:16
PROVIDERS: Internal Medicine; Student in an Organized Health Care Education/Training Program; Admitting Provider Student in an Organized Health Care Education/Training Program; Emergency Provider Family Medicine; PCP Family Medicine; Visit Provider Internal Medicine
DX: J96.22 Acute and chronic respiratory failure with hypercapnia (principal); J96.00 Acute respiratory failure, unspecified whether with hypoxia or hypercapnia; F33.1 Major depressive disorder, recurrent, moderate; K26.9 Duodenal ulcer, unspecified as acute or chronic, without hemorrhage or perforation; B96.89 Other specified bacterial agents as the cause of diseases classified elsewhere; D64.9 Anemia, unspecified; I48.91 Unspecified atrial fibrillation; Z79.899 Other long term (current) drug therapy; M19.90 Unspecified osteoarthritis, unspecified site; J44.9 Chronic obstructive pulmonary disease, unspecified; E66.01 Morbid (severe) obesity due to excess calories; Z68.41 Body mass index [BMI] 40.0-44.9, adult; G47.30 Sleep apnea, unspecified; J90 Pleural effusion, not elsewhere classified; Z99.81 Dependence on supplemental oxygen; Z79.01 Long term (current) use of anticoagulants; I50.31 Acute diastolic (congestive) heart failure; Z79.84 Long term (current) use of oral hypoglycemic drugs; I35.8 Other nonrheumatic aortic valve disorders; M06.00 Rheumatoid arthritis without rheumatoid factor, unspecified site; Z87.891 Personal history of nicotine dependence
CPT/HCPCS: 32555; 36415; 36416; 36600; 51702; 71045; 71250; 76604; 80048; 80051; 80053; 80061; 80162; 81003; 82330; 82607; 82746; 82803; 82805; 82962; 83036; 83540; 83550; 83605; 83735; 83880; 84100; 84145; 84443; 84484; 85025; 85610; 87635; 93005; 93306; 94640; 94660; 94664; 96365; 96372; 96375; 99291; G0378; J1644; J1815; J1940; J2543; J2920; J3370; J3490; J7614; J7626; J7644

== ENCOUNTER 2023-07-18 18:36 | Emergency (ER) | payer MEDICARE, SELFPAY ==
[2023-07-18 18:36] VITALS: BP 159/80; PULSE 87; RESP 18; TEMP 36.7; O2SAT 93; BMI 35.7
--- NOTE | 2023-07-18 18:51 | XRR_ITS ---
PROCEDURE INFORMATION: Exam: XR Chest Exam date and time: 07/18/2023 6:59 PM Age: 72 years old Clinical indication: Shortness of breath; Additional info: Dyspnea TECHNIQUE: Imaging protocol: Radiologic exam of the chest. Views: 1 view. COMPARISON: CT chest con [id number] 07/01/2023 9:30 AM FINDINGS: Lungs: Irregular opacities in the right and left hilar stations with large opacification in the right infrahilar station. Pleural spaces: Small bilateral pleural effusions. Heart/Mediastinum: Unremarkable. No cardiomegaly. Bones/joints: Unremarkable. XR/XR chest 1V portable [id number] IMPRESSION: 1. Irregular opacities in the right and left hilar stations with large opacification in the right infrahilar station. 2. Small bilateral pleural effusions.
[2023-07-18 19:06] VITALS: BP 159/80; PULSE 85; RESP 25; O2SAT 94
--- NOTE | 2023-07-18 20:09 | W.ED.SOB ---
HPI - SOB/Dyspnea General: Chief Complaint: Shortness of Breath/Dyspnea Stated Complaint: SOB Time Seen by Provider: 07/18/23 18:51 History of Present Illness: HPI Narrative: 72-year-old female presents to the emergency department with complaints of increased shortness of breath over the previous 3 days. She states she requires home oxygen normally at 2 L and over this previous 3 days she has had increased to 3 L nasal cannula. She states she still feels short of breath and has had a productive cough. She endorses increased fatigue and malaise. She states that she was told that she had pneumonia. She denies chest pain, dizziness or lightheaded feeling at present. Review of Systems General: Reports: 10 or more systems reviewed and unremarkable except in HPI and below Const: Reports: fatigue and malaise Resp: Reports: dyspnea, non-productive cough and wheezing PFSH ED PFSH: Medical History Anxiety and depression CHF exacerbation Chronic knee pain Chronic low back pain COPD (chronic obstructive pulmonary disease) Oxygen dependent, 2 L at baseline Coronary artery disease COVID-14 August 2020 Duodenal ulcer due to bacteria Fibromyalgia High risk medication use Hyperlipidemia Hypertension Hypothyroidism Immunization counseling Inflammatory arthritis Intermittent atrial fibrillation Left renal mass Liver cirrhosis Low back pain of over 3 months duration Lung nodule Major depressive disorder, recurrent episode, moderate with anxious distress Narrow complex tachycardia Osteoarthritis of knees, bilateral Poorly controlled diabetes mellitus Psychiatric care Recurrent UTI Seronegative rheumatoid arthritis of both hands Unstable angina Urgency incontinence UTI (urinary tract infection) Surgical History History of cardiac cath History of cholecystectomy History of hysterectomy History of knee replacement History of thyroid surgery Family History Other CAD (coronary artery disease) Cancer Denies family history of Anesthesia complication Bleeding disorder Social History Smoking and tobacco/nicotine status: former use of tobacco/nicotine Quit status (tobacco/nicotine): has quit using Year quit tobacco: 2005 Second hand smoke exposure: No Alcohol intake: never Substance/Drug Use: never Adopted: No Caregiver/support person: No Lives independently: No Household members: spouse Marital status: Current occupational status: retired Current gender identity: Female Physical Exam Narrative: EXAM NARRATIVE: Constitutional: the patient appears well nourished and with normal development. Vital signs reviewed as documented. HENMT: Normocephalic, atraumatic. Extermal ears with normal appearance without drainage. Nose without drainage, normal appearance. Mucus membranes moist. Neck is supple, No jugular venous distension, trachea is midline, no appreciable carotid bruits. No lymphadenopathy. No meningeal signs. Flexion, extension and lateral rotation is without pain. Eyes: Pupils are equal, round, reactive to light and accommodation. No scleral icterus. Extra-ocular movement are intact. Thorax is symmetrical and with equal rise and fall with respirations. Resp: Lung Sounds are decreased bilaterally to the bases secondary to body habitus. She does have intermittent expiratory wheezes. She does sound like she has significant rhonchorous sounds and increased bronchovesicular sounds greater on the right than the left. are clear to auscultation. Cardio: Regular rate and rhythm. Positive S1, S2. No appreciable murmurs, rubs or gallops. GI: Abdominal exam reveals normal bowel sounds to all quadrants. No organomegaly. No obvious palpable masses noted. No hepatomegally appreciated. Soft, nontender to palpation. Extremity: Extremities are non-edematous and both femoral and pedal pulses are 2+ and equal bilaterally. Moves all extremities well, sensation in all extremities. Neuro: Alert and oriented x4, person, place, time and situation. Cranial nerves II through XII are grossly intact, there is no focal neurological deficits that I can appreciate at present. Motor strength in the upper and lower extremities are equal and bilateral 5/5. Psych: Cooperative, calm, normal thought process, appropriate judgment. Skin: No lesions, rashes. No gross abnormalities noted. Back: Symmetrical, no obvious deformity, No CVA tenderness Course ED course: I contacted Dr. Robert to discuss admission of the patient to the hospital. He advised that after reviewing her laboratory and radiographic examination today that she has significantly improved from her previous on when she was discharged. His recommendation was that she continue her current path at home as well as follow the discharge instructions from previous and follow-up with her primary care provider. I will send her home with a prescription for antibiotics for her pneumonia and have encouraged her to continue to use her CPAP as directed. Vital Signs: Vital signs: Vital Signs Temperature 98.1 F 07/18/23 18:36 Pulse Rate 97 07/18/23 22:17 Respiratory Rate 19 H 07/18/23 22:17 Blood Pressure 139/85 07/18/23 22:17 Pulse Oximetry 97 07/18/23 22:17 Oxygen Delivery Me thod Nasal Cannula 07/18/23 22:17 Oxygen Flow Rate 4.5 07/18/23 18:36 MDM - SOB/Dyspnea Medical Decision Making Physical exam completed and documented, we will obtain a CBC CMP chest x-ray I reviewed the patient's previous medical records. Given her chronic and continuous increased oxygen demand I am concerned for COPD exacerbation with worsening of her pneumonia. I will contact the hospitalist and request admission of the patient. Medical Records I reviewed the patient's medical records. Lab Data I reviewed the patient's lab results. 07/18/23 20:25 07/18/23 20:25 Labs/Radiology: Radiology Impressions Chest X-Ray 07/18/23 18:51 IMPRESSION: 1. Irregular opacities in the right and left hilar stations with large opacification in the right infrahilar station. 2. Small bilateral pleural effusions. Laboratory Results WBC 7.31 10^3/uL (3.29-11.43) 07/18/23 20:25 Corrected WBC Cancelled 07/18/23 19:10 RBC 3.13 10^6/uL (3.85-5.65) L 07/18/23 20:25 Hgb 8.40 g/dL (11.27-16.99) L 07/18/23 20:25 Hct 29.6 % (36-47) L 07/18/23 20:25 MCV 94.6 fl (85-98) 07/18/23 20:25 MCH 26.8 pg (27-33) L 07/18/23 20:25 MCHC 28.4 g/dL (30-55) L 07/18/23 20:25 RDW 16.9 % (12.1-15.1) H 07/18/23 20:25 Plt Count 171 10^3/cmm (157-399) 07/18/23 20:25 MPV 9.8 fL (7.4-10.4) 07/18/23 20:25 Gran % Cancelled 07/18/23 19:10 Neut % (Auto) 83.1 % 07/18/23 20:25 Lymph % (Auto) 8.6 % 07/18/23 20:25 Hancock % (Auto) 6.6 % 07/18/23 20:25 Eos % (Auto) 0.5 % 07/18/23 20:25 Baso % (Auto) 0.4 % 07/18/23 20:25 Neut # (Auto) 6.07 10^3/uL (1.8-7.7) 07/18/23 20:25 Lymph # (Auto) 0.6 10^3/uL (0.8-4.8) L 07/18/23 20:25 Hancock # (Auto) 0.5 10^3/uL (0.2-0.9) 07/18/23 20:25 Eos # (Auto) 0.0 10^3/uL (0.0-0.8) 07/18/23 20:25 Baso # (Auto) 0.0 10^3/uL (0.0-0.1) 07/18/23 20:25 Absolute Gran (auto) Cancelled 07/18/23 19:10 Nucleated RBC % (auto) 0 % 07/18/23 20:25 Nucleated RBCs # 0.0 /100WBC 07/18/23 20:25 Sodium 142 mmol/L (136-145) 07/18/23 20:25 Potassium 4.3 mmol/L (3.5-5.1) 07/18/23 20:25 Chloride 99 mmol/L (98-107) 07/18/23 20:25 Carbon Dioxide 32 mmol/L (22-29) H 07/18/23 20:25 Anion Gap 15.3 (5-19) 07/18/23 20:25 BUN 26 mg/dL (8-23) H 07/18/23 20:25 Creatinine 1.0 mg/dL (0.5-0.9) H 07/18/23 20:25 GFR Calculation Not Reportable 07/18/23 20:25 Glucose 373 mg/dL (65-115) H 07/18/23 20:25 Calculated Osmolality 314 mOsm/kg (285-295) H 07/18/23 20:25 Calcium 9.5 mg/dL (8.5-10.5) 07/18/23 20:25 Total Bilirubin 0.3 mg/dL (0.15-1.2) 07/18/23 20:25 AST 30 U/L (0-32) 07/18/23 20:25 ALT 35 U/L (0-33) H 07/18/23 20:25 Alkaline Phosphatase 184 U/L (35-105) H 07/18/23 20:25 NT-Pro-B Natriuret Pep 3956 pg/mL (0-125) H 07/18/23 20:25 Total Protein 6.0 g/dL (6.6-8.7) L 07/18/23 20:25 Albumin 3.7 g/dL (3.5-5.2) 07/18/23 20:25 Globulin 2.3 g/dL (1.3-4.6) 07/18/23 20:25 Procalcitonin 0.11 ng/mL (0-0.5) 07/18/23 20:25 All radiology interpretation(s) finalized by discharge Discharge Plan Discharge Patient Disposition: Home Clinical Impression: PNA (pneumonia) Condition: Stable Prescriptions: New levofloxacin 750 mg tablet 750 mg PO DAILY 7 Days Qty: 7 0RF No Action nitroglycerin [Nitrostat] 0.4 mg tablet, sublingual 0.4 mg SUBLINGUAL Q5M PRN (Reason: Chest Pain) Qty: 30 3RF Rx Instructions: MAX 3 DOSES PER EPISODE hydrocodone-acetaminophen 7.5-325 mg tablet 1 tab PO TID PRN (Reason: pain) 30 Days Qty: 90 0RF levothyroxine [Euthyrox] 150 mcg tablet 150 mcg PO QAM calcium carbonate [Calcium 600] 600 mg calcium (1,500 mg) tablet 600 mg PO DAILY folic acid 1 mg tablet 1 mg PO DAILY@08 Qty: 90 1RF duloxetine 60 mg capsule,delayed release(DR/EC) 60 mg PO DAILY@08 Qty: 120 0RF hydralazine 10 mg tablet 10 mg PO TID Qty: 270 3RF digoxin 125 mcg (0.125 mg) tablet 125 mcg PO DIRECTED Qty: 75 3RF Rx Instructions: Alternate 1/2 Tab daily, next day 1 tab lisinopril 40 mg tablet 40 mg PO QPM Qty: 30 0RF Hold Instructions: Resume on 12/01/21. Rx Instructions: 1 yr supply was sent to [facility] in February magnesium L-lactate 84 mg tablet extended release 84 mg PO BID Qty: 180 3RF methotrexate sodium 2.5 mg tablet 15 mg PO Q7D Qty: 90 0RF Rx Instructions: ON SATURDAYS Humira Pen 40 mg/0.8 mL pen injector kit See Rx Instructions .ROUTE .COMPLEX Qty: 2 2RF Hold Instructions: Resume on 08/02/21. Dose Instruction: INJECT 40 MG (0.8 ML) SUBCUTANEOUSLY EVERY 14 DAYS (TAKE ON SATURDAYS EVERY 14 DAYS) (BULK) Rx Instructions: INJECT 40 MG (0.8 ML) SUBCUTANEOUSLY EVERY 14 DAYS (TAKE ON SATURDAYS EVERY 14 DAYS) (BULK) acetaminophen [Arthritis Pain Reliever] 650 mg Tablet Extended Release 650 mg PO Q4H PRN (Reason: Pain) cholecalciferol (vitamin D3) [Vitamin D3] 25 mcg (1,000 unit) Tablet 2,000 unit PO DAILY@08 docusate sodium [Stool Softener] 250 mg Capsule 250 mg PO BID cyanocobalamin (vitamin B-12) [Vitamin B-12] 500 mcg Tablet 500 mcg PO DAILY chlorpheniramine maleate [ChlorTabs] 4 mg Tablet See Rx Instructions .ROUTE .COMPLEX Rx Instructions: 4 mg orally TID THEN ALTERNATES WITH BENADRYL THEN NEXT DAY diphenhydramine HCl [Benadryl] 25 mg Capsule See Rx Instructions .ROUTE .COMPLEX Rx Instructions: 25MG PO TID THEN ALTERNATES WITH CHLORTAB THE NEXT DAY ferrous gluconate 324 mg (37.5 mg iron) tablet See Rx Instructions .ROUTE .COMPLEX Rx Instructions: ALTERNATE 1 TABLET DAILY WITH 2 TABLETS DAILY pantoprazole 40 mg tablet,delayed release (DR/EC) 40 mg PO BID tramadol 50 mg tablet 50 mg PO Q4H PRN (Reason: Pain) pyridostigmine bromide 60 mg tablet 60 mg PO .9AM glucose 4 gram tablet,chewable 4 g PO ONCE PRN (Reason: Hypoglycemia) metoprolol succinate 100 mg tablet extended release 24 hr 100 mg PO DAILY furosemide 20 mg tablet 20 mg PO DAILY Qty: 90 0RF potassium chloride 20 mEq tablet extended release 20 meq PO DAILY Qty: 180 3RF Trelegy Ellipta 200-62.5-25 mcg blister with device 1 inh INHALATION DAILY Qty: 28 0RF sulfasalazine 500 mg tablet 500 mg PO BID Fish Oil 60-90-500 mg Capsule 1 cap PO DAILY atorvastatin 40 mg Tablet 80 mg PO BEDTIME 30 Days Qty: 30 0RF sucralfate 1 gram Tablet 1 g PO TID Qty: 30 0RF Discharge Orders: Discharge ED (Routine); Ordered 07/18/23 Ordered By: Severo Ramirez Referrals: Davion Griggs MD [Primary Care Provider] - Discharge Diet: Advance as tolerated Discharge Activity: Resume usual activity Patient Instructions: Opioid Safety, Pain Management Activity Restrictions/Additional Instructions: Activity Restrictions/Additional Instructions: Thank you for choosing [facility] for your healthcare needs today. Please realize that you were seen in the Emergency Department and that we are providing you with an emergency medical screening exam and this may not be complete and all inclusive of all the testing and or medical work-up that you may need to determine your ailment or severity of your illness. It is very important that you follow-up as instructed with your Primary care provider or Specialist for additional evaluation and to discuss your medical treatment plan. You may return to the Emergency Department should you have concerns or if your condition changes or worsens in any way. Coding Level of Care Code ED [employer] Lifeguard for Dougie Samson
[2023-07-18 20:39] LABS: Basophils % 0.4 %; Eosinophils % 0.5 %; Hematocrit 29.6 % (36-47); Lymphocytes # 0.6 10^3/uL (0.8-4.8); Lymphocytes % 8.6 %; Mean Corpuscular HGB Conc 28.4 g/dL (30-55); Mean Corpuscular Hemoglobin 26.8 pg (27-33); Mean Corpuscular Volume 94.6 fl (85-98); Mean Platelet Volume 9.8 fL (7.4-10.4); Monocytes # 0.5 10^3/uL (0.2-0.9); Monocytes % 6.6 %; Neutrophils # 6.07 10^3/uL (1.8-7.7); Neutrophils % 83.1 %; Nucleated Red Blood Cells % 0 %; Platelet Count 171 10^3/cmm (157-399); Red Blood Count 3.13 10^6/uL (3.85-5.65); Red Cell Distribution Width 16.9 % (12.1-15.1); White Blood Count 7.31 10^3/uL (3.29-11.43)
[2023-07-18 21:02] VITALS: BP 133/63; PULSE 106; RESP 18; O2SAT 96
[2023-07-18 21:05] LABS: Procalcitonin 0.11 ng/mL (0-0.5)
[2023-07-18 21:07] LABS: NT Pro B Type Natriuretic Pept 3956 pg/mL (0-125)
[2023-07-18 21:16] LABS: Anion Gap 15.3 (5-19); Blood Urea Nitrogen 26 mg/dL (8-23); Potassium 4.3 mmol/L (3.5-5.1); Total Bilirubin 0.3 mg/dL (0.15-1.2)
[2023-07-18 21:18] LABS: Alanine Aminotransferase 35 U/L (0-33); Albumin Level 3.7 g/dL (3.5-5.2); Alkaline Phosphatase 184 U/L (35-105); Carbon Dioxide 32 mmol/L (22-29); Glucose 373 mg/dL (65-115); Osmolality Calculated 314 mOsm/kg (285-295)
[2023-07-18 21:19] LABS: Aspartate Amino Transferase 30 U/L (0-32); Calcium 9.5 mg/dL (8.5-10.5); Chloride 99 mmol/L (98-107); Globulin 2.3 g/dL (1.3-4.6); Sodium 142 mmol/L (136-145)
[2023-07-18 22:17] VITALS: BP 139/85; PULSE 97; RESP 19; O2SAT 97
[2023-07-18] MEDS: levofloxacin-dextrose 5 % 750 MG/150 ML PREMIX 100 MG IV (22:18)
[2023-07-18] MEDS: levoFLOXacin 750 mg Tablet PO ×2 (22:56→23:02)
== END 2023-07-18 23:15 | disposition home or self-care (01) ==
PROVIDERS: Emergency Provider Internal Medicine; PCP Family Medicine
DX: J44.0 Chronic obstructive pulmonary disease with (acute) lower respiratory infection (principal); J18.9 Pneumonia, unspecified organism; J90 Pleural effusion, not elsewhere classified; Z87.891 Personal history of nicotine dependence; I11.0 Hypertensive heart disease with heart failure; I50.9 Heart failure, unspecified; Z99.81 Dependence on supplemental oxygen; I25.10 Atherosclerotic heart disease of native coronary artery without angina pectoris; E78.5 Hyperlipidemia, unspecified
CPT/HCPCS: 36415; 71045; 80053; 83880; 84145; 85025; 87040; 87077; 87150; 87186; 87205; 96365; 99284; J1956

== ENCOUNTER 2023-07-25 09:27 | Inpatient (IN) | payer MEDICARE, SELFPAY ==
[2023-07-25] VITALS (15 sets, daily range): BP systolic 122–161; BP diastolic 64–99; PULSE 88–109; RESP 16–26; TEMP 36.4–36.8; O2SAT 90–98; BMI 36.6
--- NOTE | 2023-07-25 09:52 | XRR_ITS ---
PROCEDURE INFORMATION: Exam: XR Chest Exam date and time: 07/25/2023 9:56 AM Age: 72 years old Clinical indication: Cough and dyspnea and shortness of breath; Prior surgery; Surgery date: 6+ months; Patient HX: HX of thyroid cancer; Additional info: Dyspnea/cough.No history of trauma or recent surgery is provided. TECHNIQUE: Imaging protocol: Radiologic exam of the chest. 1image(s) are provided. Views: 1 view. COMPARISON: 1. CR (CHEST, ) 07/18/2023 6:[address] chest wo con [id number] 07/01/2023 9:30 AM 3. CR (CHEST, ) 06/30/2023 5:59 PM FINDINGS: Lungs: There is some patchy atelectatic consolidation of the lung bases similar overall. Some compressive changes as well as early inflammation could also present in this fashion. Pleural spaces: No pneumothorax is appreciated. There is pleural fluid blunting the costophrenic angles and lung bases. This is right more so than left and appears increased on the right in the interval. Heart/Mediastinum: The cardiomediastinal silhouette is borderline in size.This can be seen with central averaging as well as vitaliy enlargement.No cardiac decompensation is appreciated. This can also be seen with increased volume status, pulmonary hypertension. Diaphragm: Hemidiaphragms are obscured. Bones/joints: Osseous alignment is maintained.No interval displaced fracture or dislocation is appreciated.There is slightly decreased bone mineralization overall. There are chronic appearing degenerative changes of the shoulders similar. Soft tissues: No radiopaque foreign body or subcutaneous emphysema is appreciated. Other findings: No other significant interval changes are appreciated. XR/XR chest 1V portable [id number] IMPRESSION: There is some persistent patchy atelectatic consolidation and pleural fluid at the lung bases. The pleural fluid appears increased at the right lung base in the interval.
[2023-07-25 10:00] LABS: Basophils # 0.1 10^3/uL (0.0-0.1); Basophils % 0.7 %; Eosinophils # 0.2 10^3/uL (0.0-0.8); Eosinophils % 1.7 %; Hematocrit 35.2 % (36-47); Lymphocytes % 23.4 %; Mean Corpuscular HGB Conc 28.1 g/dL (30-55); Mean Corpuscular Volume 96.2 fl (85-98); Mean Platelet Volume 10.2 fL (7.4-10.4); Monocytes % 11.6 %; Neutrophils # 5.37 10^3/uL (1.8-7.7); Neutrophils % 62.1 %; Nucleated Red Blood Cells % 0 %; Platelet Count 282 10^3/cmm (157-399); Red Blood Count 3.66 10^6/uL (3.85-5.65); Red Cell Distribution Width 16.8 % (12.1-15.1); White Blood Count 8.64 10^3/uL (3.29-11.43)
--- NOTE | 2023-07-25 10:02 | ECG_ITS ---
[facility] Test Date: 2023-07-25 Pat Name: Myesha Parker Department: Room: Gender: Female Rehabilitation Inspector: : 1950 Requested By: Kenrick Al Order Number: [id number] Wilbur MD: Petey Elliott M.D. Measurements Intervals [place] Rate: 98 P: 0 [place]: 0 QRS: -71 QRSD: 141 T: 99 QT: 384 QTc: 492 Interpretive Statements ATRIAL FIBRILLATION RIGHT BUNDLE BRANCH BLOCK LEFT ANTERIOR FASCICULAR BLOCK [QRS AXIS <= -45, QR IN I, RS IN II] MODERATE VOLTAGE CRITERIA FOR LVH, CONSIDER NORMAL VARIANT [MEETS CRITERIA IN ONE OF: R(aVL), S(V1), R(V5), R(V5/V6)+S(V1)] Compared to ECG 07/01/2023 12:43:10 No significant changes Electronically Signed On 07-26-2023 16:44:38 SLURRY TANK OPERATOR by Petey Elliott M.D. [id number]
[2023-07-25 10:09] LABS: Alanine Aminotransferase 23 U/L (0-33); Albumin Level 3.7 g/dL (3.5-5.2); Alkaline Phosphatase 139 U/L (35-105); Aspartate Amino Transferase 25 U/L (0-32); Blood Urea Nitrogen 21 mg/dL (8-23); Calcium 9.7 mg/dL (8.5-10.5); Carbon Dioxide 31 mmol/L (22-29); Chloride 96 mmol/L (98-107); Creatinine Clr Calc Pharmacy 52.4988; Globulin 3.1 g/dL (1.3-4.6); Glucose 259 mg/dL (65-115); Osmolality Calculated 302 mOsm/kg (285-295); Sodium 140 mmol/L (136-145); Total Bilirubin 0.3 mg/dL (0.15-1.2); Total Protein 6.8 g/dL (6.6-8.7)
[2023-07-25 10:10] LABS: Troponin(5th) Baseline 39 ng/L (0-10)
[2023-07-25 10:53] LABS: Digoxin 0.9 ng/mL (0.6-1.2)
[2023-07-25] MEDS: piperacillin-tazobactam 3.375 GM in sodium chloride 0.9% (plus) 50 ML IV ×2 (11:00→22:16)
--- NOTE | 2023-07-25 11:34 | CT_ITS ---
WS: [id number] CTA OF THE CHEST WITH PULMONARY EMBOLISM PROTOCOL TECHNIQUE: High-resolution contrast enhanced CTA of the chest with coronal and sagittal reformatted i mages with pulmonary embolism protocol. MIP images are also reviewed. CLINICAL INFORMATION: dyspnea/hypoxia/tachycardia COMPARISON: 07/01/2023 and 06/16/2023 DLP: 67.[address] scans at [facility] use at least one of these dose optimization techniques: automated e xposure control; mA and/or kV adjustment per patient size (includes targeted exams where dose is matc hed to clinical indication); or iterative reconstruction. FINDINGS: Shallow inspiration. Cardiomegaly. Proximal main pulmonary arteries patent. Normal segmental and subs egmental pulmonary arteries. No evidence of pulmonary embolus. Enlarged main pulmonary arteries can b e seen with pulmonary arterial hypertension unchanged. Aortic calcification. Coronary calcification. No mediastinal or hilar lymphadenopathy. No axillary lymphadenopathy. Small to moderate RIGHT and small LEFT pleural effusions with compressive atelectasis in the lung bas es. Hazy groundglass infiltrates in the perihilar regions and upper lobes likely due to pulmonary ross ma. Partially visualized cirrhotic liver. Tiny esophageal hiatal hernia. IMPRESSION: 1. No evidence of pulmonary embolus. 2. Small to moderate RIGHT and small LEFT pleural effusions unchanged since 07/01/2023. Compressive a telectasis in the lung bases. 3. Cardiomegaly. 4. Enlarged central pulmonary arteries can be seen with pulmonary arterial hypertension unchanged. 5. Cirrhotic liver. Shallow inspiration.
--- NOTE | 2023-07-25 11:51 | ECG_ITS ---
[facility] Test Date: 2023-07-25 Pat Name: Myesha Parker Department: Room: Gender: Female Jewelry Facer: : 1950 Requested By: Kenrick Al Order Number: [id number] Wilbur MD: Petey Elliott M.D. Measurements Intervals [place] Rate: 97 P: 0 [place]: 0 QRS: -73 QRSD: 132 T: 75 QT: 383 QTc: 487 Interpretive Statements ATRIAL FIBRILLATION RIGHT BUNDLE BRANCH BLOCK [120+ ms QRS DURATION, UPRIGHT V1, 40+ ms S IN I/aVL/V4/V5/V6] LEFT ANTERIOR FASCICULAR BLOCK [QRS AXIS <= -45, QR IN I, RS IN II] Compared to ECG 07/25/2023 10:02:56 No significant changes Electronically Signed On 07-26-2023 17:00:26 SYSTEMS SOFTWARE DEVELOPER by Petey Elliott M.D. [id number]
--- NOTE | 2023-07-25 12:13 | ED_ITS ---
HPI - SOB/Dyspnea 2 General: Chief Complaint: Shortness of Breath/Dyspnea Stated Complaint: Chest pain, SOB Time Seen by Provider: 07/25/23 09:37 Source: patient Mode of arrival: EMS History of Present Illness: HPI Narrative: 72-year-old female presents to the emerg ency room with difficulty breathing she has a history of diastolic CHF as well as COPD she is frequently been in for hypercapnic respiratory failure she has obesity hypoventilation syndrome as well. Increasing shortness of breath over the last couple of days increasing oxygen need. Normally she is on 2 to 3 L though she is requiring 5. Cough not been productive she denies chest or abdominal pain MD elicited complaint: shortness of breath and cough Pertinent past history: COPD and congestive heart failure Exacerbating factors: nothing Relieving factors: nothing Associated symptoms: Deny abdominal pain, chest pain or fever(s) Related Data: Home oxygen amount: 2 liters Review of Systems 2 Const: Denies: fever(s) or chills Card: Denies: chest pain Resp: Denies: dyspnea GI: Denies: abdominal pain : Denies: dysuria, urinary frequency or urinary urgency Musc: Denies: neck pain or back pain Skin/Breast: Denies: rash PFSH ED 2 PFSH: Medical History Major depressive disorder, recurrent episode, moderate with anxious distress Duodenal ulcer due to bacteria Psychiatric care Coronary artery disease Immunization counseling High risk medication use Chronic knee pain Chronic low back pain COVID-14 August 2020 Seronegative rheumatoid arthritis of both hands Intermittent atrial fibrillation Poorly controlled diabetes mellitus UTI (urinary tract infection) CHF exacerbation Narrow complex tachycardia Inflammatory arthritis Osteoarthritis of knees, bilateral Fibromyalgia Lung nodule Unstable angina Low back pain of over 3 months duration Urgency incontinence Left renal mass COPD (chronic obstructive pulmonary disease) Oxygen dependent, 2 L at baseline Anxiety and depression Hypothyroidism Liver cirrhosis Hyperlipidemia Hypertension Recurrent UTI Surgical History History of cholecystectomy History of thyroid surgery History of cardiac cath History of hysterectomy History of knee replacement Family History Other CAD (coronary artery disease) Cancer Denies family history of Anesthesia complication Bleeding disorder Social History (Reviewed 07/28/23 @ 14:10 by EDEN Gaytan Smoking and tobacco/nicotine status: former use of tobacco/nicotine Quit status (tobacco/nicotine): has quit using Year quit tobacco: 2005 Second hand smoke exposure: No Alcohol intake: never Substance/Drug Use: never Adopted: No Caregiver/support person: No Lives independently: No Household members: spouse Marital status: Current occupational status: retired Current gender identity: Female Physical Exam 2 Const: GENERAL APPEARANCE: cooperative and comfortable O RIENTATION/CONSCIOUSNESS: Yes awake, Yes oriented to person, Yes oriented to place and Yes oriented to time HENMT: COMMON NORMALS: normocephalic, atraumatic and hearing grossly normal bilaterally HEAD & SCALP: normocephalic and atraumatic Resp: EFFORT & INSPECTION: Yes abnormal respiratory pattern, Yes tachypneic and Yes uses accessory muscles AUSCULTATION: rhonchi and wheezes Cardio: COMMON NORMALS: regular rhythm and No murmurs present (Cardio) R ATE: tachycardic RHYTHM: regular rhythm GI: COMMON NORMALS: Soft to palpation and No hepatosplenomegaly present A USCULTATION: Yes normoactive bowel sounds PALPATION: Yes Soft to palpation, No Tenderness to palpation present (GI), No Guarding due to palpation present (GI) and Yes No hepatosplenomegaly present Extremity: COMMON NORMALS: normal to inspection, capillary refill normal, no clubbing, cyanosis or edema, no calf tenderness and no pedal edema Neuro: SENSORIUM/ORIENTATION: Yes oriented to person, Yes oriented to place and Yes oriented to time Skin: COMMON NORMALS: no rashes or lesions noted GENERAL SKIN EXAM: no rashes or lesions noted Course 2 Vital Signs: Vital signs: Vital Signs Temperature 97.5 F L 07/28/23 12:00 Pulse Rate 94 07/28/23 12:00 Respiratory Rate 20 H 07/28/23 12:00 Blood Pressure 162/90 07/28/23 12:00 Pulse Oximetry 97 07/28/23 12:00 Oxygen Delivery Me thod Nasal Cannula 07/28/23 08:00 Oxygen Flow Rate 3 07/28/23 08:00 MDM - SOB/Dyspnea Medical Decision Making Acute hypercapnic respiratory failure with hypoxia. Signs of pneumonia. Start patient on IV antibiotics consult hospitalist orders written will admit Lab Data 07/28/23 Unknown 07/27/23 20:25 Labs/Radiology: Radiology Impressions Chest X-Ray 07/25/23 09:52 IMPRESSION: There is some persistent patchy atelectatic consolidation and pleural fluid at the lung bases. The pleural fluid appears increased at the right lung base in the interval. Laboratory Results WBC 8.64 10^3/uL (3.29-11.43) 07/25/23 09:39 RBC 3.66 10^6/uL (3.85-5.65) L 07/25/23 09:39 Hgb 9.90 g/dL (11.27-16.99) L 07/25/23 09:39 Hct 35.2 % (36-47) L 07/25/23 09:39 MCV 96.2 fl (85-98) 07/25/23 09:39 MCH 27.0 pg (27-33) 07/25/23 09:39 MCHC 28.1 g/dL (30-55) L 07/25/23 09:39 RDW 16.8 % (12.1-15.1) H 07/25/23 09:39 Plt Count 282 10^3/cmm (157-399) 07/25/23 09:39 MPV 10.2 fL (7.4-10.4) 07/25/23 09:39 Neut % (Auto) 62.1 % 07/25/23 09:39 Lymph % (Auto) 23.4 % 07/25/23 09:39 [place] % (Auto) 11.6 % 07/25/23 09:39 Eos % (Auto) 1.7 % 07/25/23 09:39 Baso % (Auto) 0.7 % 07/25/23 09:39 Neut # (Auto) 5.37 10^3/uL (1.8-7.7) 07/25/23 09:39 Lymph # (Auto) 2.0 10^3/uL (0.8-4.8) 07/25/23 09:39 [place] # (Auto) 1.0 10^3/uL (0.2-0.9) H 07/25/23 09:39 Eos # (Auto) 0.2 10^3/uL (0.0-0.8) 07/25/23 09:39 Baso # (Auto) 0.1 10^3/uL (0.0-0.1) 07/25/23 09:39 Nucleated RBC % (auto) 0 % 07/25/23 09:39 Nucleated RBCs # 0.0 /100WBC 07/25/23 09:39 Specimen Type Arterial 07/25/23 15:12 Sample Site Radial, left 07/25/23 15:12 ABG pH 7.38 (7.35-7.45) 07/25/23 15:12 ABG pCO2 60.8 mmHg (35-45) H* 07/25/23 15:12 ABG pO2 67.8 mmHg (80.0-100.0) L 07/25/23 15:12 ABG HCO3 36.0 mmol/L (22-26) H 07/25/23 15:12 ABG O2 Saturation 92.2 07/25/23 15:12 ABG Base Excess 9.5 mmol/L (-2.0-2.0) H 07/25/23 15:12 Memo Test Pos 07/25/23 15:12 A-a O2 Gradient 1.1 mmHg (5-10) L 07/25/23 15:12 Hematocrit 26.6 % (37-47) L 07/25/23 15:12 Hgb O2 Saturation 90.4 % (95-100) L 07/25/23 15:12 Carboxyhemoglobin 1.5 %THgb (0.4-20.1) 07/25/23 15:12 Methemoglobin 0.4 % (0.4-1.5) 07/25/23 15:12 Total Hemoglobin 8.7 g/dL (12-16) L 07/25/23 15:12 Sodium 140.0 mmol/L (131-143) 07/25/23 15:12 Potassium 4.0 mmol/L (3.5-5.0) 07/25/23 15:12 Glucose 222.0 mg/dL (70-115) H 07/25/23 15:12 Ionized Calcium 1.3 mmol/L (1.1-1.4) 07/25/23 15:12 O2 Delivery Device Nc 07/25/23 15:12 O2 Liters/Min 5.0 % 07/25/23 15:12 Inspector Packer Glass Container ID [place] 07/25/23 15:12 Sodium 140 mmol/L (136-145) 07/25/23 09:39 Potassium 4.0 mmol/L (3.5-5.1) 07/25/23 09:39 Chloride 96 mmol/L (98-107) L 07/25/23 09:39 Carbon Dioxide 31 mmol/L (22-29) H 07/25/23 09:39 Anion Gap 17.0 (5-19) 07/25/23 09:39 BUN 21 mg/dL (8-23) 07/25/23 09:39 Creatinine 1.1 mg/dL (0.5-0.9) H 07/25/23 09:39 GFR Calculation Not Reportable 07/25/23 09:39 Glucose 259 mg/dL (65-115) H 07/25/23 09:39 Calculated Osmolality 302 mOsm/kg (285-295) H 07/25/23 09:39 Calcium 9.7 mg/dL (8.5-10.5) 07/25/23 09:39 Total Bilirubin 0.3 mg/dL (0.15-1.2) 07/25/23 09:39 AST 25 U/L (0-32) 07/25/23 09:39 ALT 23 U/L (0-33) 07/25/23 09:39 Alkaline Phosphatase 139 U/L (35-105) H 07/25/23 09:39 Troponin T Baseline 39 ng/L (0-10) H 07/25/23 09:39 Troponin T 120 Minute 38.86 ng/L (0-10) H 07/25/23 11:55 Delta Troponin T -0.14 ABS# (0-10) L 07/25/23 11:55 Troponin T Hi Sens 6Hr 32.95 ng/L (0-10) H 07/25/23 15:40 Troponin T Hi Sens 6Hr Delta -6.05 ng/L (0-12) L 07/25/23 15:40 Total Protein 6.8 g/dL (6.6-8.7) 07/25/23 09:39 Albumin 3.7 g/dL (3.5-5.2) 07/25/23 09:39 Globulin 3.1 g/dL (1.3-4.6) 07/25/23 09:39 Urine Color Dark yellow (Yellow) 07/25/23 11:54 Urine Appearance Hazy (CLEAR) A 07/25/23 11:54 Urine pH 5 (5-7) 07/25/23 11:54 Ur Specific [place] 1.020 (1.005-1.030) 07/25/23 11:54 Urine Protein Trace (Negative) 07/25/23 11:54 Urine Glucose (UA) Norm (Normal) 07/25/23 11:54 Urine Ketones Negative (Negative) 07/25/23 11:54 Urine Blood Neg (Negative) 07/25/23 11:54 Urine Nitrate Negative (Negative) 07/25/23 11:54 Urine Bilirubin Neg (Negative) 07/25/23 11:54 Urine Urobilinogen Norm mg/dL (Negative) 07/25/23 11:54 Ur Leukocyte Esterase Negative (Negative) 07/25/23 11:54 Urine RBC 0-4 /hpf (0-2) H 07/25/23 11:54 Urine WBC 15-25 /hpf (0-5) H 07/25/23 11:54 Ur Squamous Epith Cells 10-15 /hpf (0-5) H 07/25/23 11:54 Ur Transition Epith Cell 5-10 /hpf 07/25/23 11:54 Amorphous Sediment Not Reportable 07/25/23 11:54 Urine Bacteria Trace /hpf (NONE) 07/25/23 11:54 Hyaline Casts 5-10 /lpf H 07/25/23 11:54 Urine Mucus Trace /hpf 07/25/23 11:54 Digoxin 0.9 ng/mL (0.6-1.2) 07/25/23 09:39 Coronavirus 229E (PCR) Not detected (NOT DETECT) 07/25/23 15:47 Influenza Type A Ag negative (Negative) 07/25/23 15:47 Influenza Type B Ag negative (Negative) 07/25/23 15:47 SARS-CoV-2 (PCR) Not detected (NOT DETECT) 07/25/23 15:47 All radiology interpretation(s) finalized by discharge Discharge Plan Discharge Patient Disposition: Admitted As Inpatient Admit Provider: Opal Marie Clinical Impression: Acute exacerbation of CHF (congestive heart failure), Acute and chronic respiratory failure with hypercapnia, COPD (chronic obstructive pulmonary disease), Morbid obesity, Community acquired pneumonia Condition: Stable Coding Level of Care Code ED Academic Dean for Chg Fwsaul
[2023-07-25 12:21] LABS: Add Urine Microscopic? YES; Bilirubin Urine Neg (Negative); Blood Urine Neg (Negative); Glucose Urine UA Norm (Normal); Ketones Urine Negative (Negative); Leukocyte Esterase Urine Negative (Negative); Nitrate Urine Negative (Negative); Protein Urine Trace (Negative); Urine Appearance Hazy (CLEAR); Urine Color Dark Yellow (Yellow); Urobilinogen Urine Norm (Negative); pH Urine 5 (5-7)
[2023-07-25 12:22] LABS: Troponin 5 2HR 38.86 ng/L (0-10)
[2023-07-25 12:24] LABS: Troponin 5 2HR Delta -0.14 ABS# (0-10)
[2023-07-25 12:26] LABS: Add Urine Culture? No; Bacteria Urine TRACE /hpf; Mucus Urine TRACE /hpf; RBC Urine 0-4 /hpf (0-2); WBC Urine 15-25 /hpf (0-5)
[2023-07-25] MEDS: vancomycin 1,000 MG in sodium chloride 0.9% 250 ML 250 MG IV (13:47)
--- NOTE | 2023-07-25 14:09 | PC.PHAR ---
PTS VERIFIED PTS MEDICATIONS-PTS STATES THE PT IS OUT OF HER METHOTREXATE 15MG Q7D STATES BEEN OUT FOR 2 WEEKS EXT MED HISTORY SHOWS LAST FILLED 04/02/23 28D/S PT STATES HAD BUILD UP-PTS STATES ALL INSULIN FOR THE PT WAS DCED EXCEPT FOR THE INSULIN LISPRO STATES USES SS BID PRN DISCHARGE ORDERS FROM 07/03/23 SHOWS LISPRO WAS DCED-PTS STATES THE PTS ELIQUIS 5MG BID WAS DCED EXT SHOWS LAST FILLED 05/30/23 30D/S-PTS STATES THE PT HAD A BUILD UP OF PYRIDOSTIGMINE BROMIDE 60MG QAM EXT SHOWS LAST FILLED 04/02/23 30D/S PTS STATES RAN OUT A WEEK AGO-PTS STATES THE PT IS SUPPOSE TO BE ON SULFASALAZINE 500MG BID EXT SHOWS LAST FILLED 03/28/23 30D/S PTS STATES PT NOT TAKEN IN A MONTH AND A HALF-PTS STATES THE PT TAKES ULTRAM 50MG TID EXT SHOWS LAST FILLED 50MG PO Q4H PRN ON 04/03/23 30D/S-NOTES ARE MADE IN THE PHARMACY COMMENTS
[2023-07-25] MEDS: iohexol 350 mg/mL 500 mL Btl (per mL) IV (14:15)
[2023-07-25 15:24] LABS: ABG PH Result 7.38 (7.35-7.45); Alveolar-Arterial Oxygen Gradi 1.1 mmHg (5-10); Arterial Blood Gas Hematocrit 26.6 % (37-47); Base Excess ABG 9.5 mmol/L (-2.0-2.0); Blood Gas Allen Test Pos; Blood Gas Operator Identificat WALCI; Blood Gas Sample Site Radial, left; Blood Gas Sample Type Arterial; Carboxyhemoglobin 1.5 %THgb (0.4-20.1); HGB O2 Sat 90.4 % (95-100); Ionized Calcium Level - ABG 1.3 mmol/L (1.1-1.4); Methemoglobin 0.4 % (0.4-1.5); Oxygen Device NC; Oxygen Saturation ABG 92.2; PO2 ABG 67.8 mmHg (80.0-100.0); Total Hemoglobin 8.7 g/dL (12-16)
[2023-07-25 15:25] LABS: ABG PCO2 60.8 mmHg (35-45)
--- NOTE | 2023-07-25 15:51 | ECG_ITS ---
[facility] Test Date: 2023-07-25 Pat Name: Myesha Parker Department: Room: Gender: Female Ditcher Operator: : [id number] Requested By: Kenrick Al Order Number: [id number] Reading MD: Petey Elliott M.D. Measurements Intervals [place] Rate: 77 P: 0 ME: 0 QRS: -75 QRSD: 141 T: 95 QT: 379 QTc: 430 Interpretive Statements ATRIAL FIBRILLATION RIGHT BUNDLE BRANCH BLOCK [120+ ms QRS DURATION, UPRIGHT V1, 40+ ms S IN I/aVL/V4/V5/V6] LEFT ANTERIOR FASCICULAR BLOCK [QRS AXIS <= -45, QR IN I, RS IN II] Compared to ECG 07/25/2023 12:35:29 No significant changes Electronically Signed On 07-26-2023 16:58:26 PSYCHOLOGIST SOCIAL by Petey Elliott M.D. [id number]
[2023-07-25 16:06] LABS: Troponin 5 6HR 32.95 ng/L (0-10)
[2023-07-25 16:08] LABS: Troponin 5 6HR Delta -6.05 ng/L (0-12)
[2023-07-25 16:28] LABS: Influenza A by IFA negative (Negative); Influenza B by IFA negative (Negative)
[2023-07-25 17:54] LABS: Adenovirus Not Detected (NOT DETECT); Chlamydia Pneumoniae Not Detected (NOT DETECT); Coronavirus 229E,HKU1,NL63,OC4 Not Detected (NOT DETECT); Human Metapneumovirus Not Detected (NOT DETECT); Human Rhinovirus/Enterovirus Not Detected (NOT DETECT); Influenza A Not Detected (NOT DETECT); Influenza A H1 Not Detected (NOT DETECT); Influenza A H1-2009 Not Detected (NOT DETECT); Influenza A H3 Not Detected (NOT DETECT); Influenza B Not Detected (NOT DETECT); Mycoplasma Pneumoniae Not Detected (NOT DETECT); Parainfluenza Virus Type 1 Not Detected (NOT DETECT); Parainfluenza Virus Type 2 Not Detected (NOT DETECT); Parainfluenza Virus Type 3 Not Detected (NOT DETECT); Parainfluenza Virus Type 4 Not Detected (NOT DETECT); Respiratory Syncytial Virus A Not Detected (NOT DETECT); Respiratory Syncytial Virus B Not Detected (NOT DETECT); SARS-COV-2 Not Detected (NOT DETECT)
--- NOTE | 2023-07-25 19:04 | PM.HP ---
Providers/Chief Complaint Admitting Physician: Opal Marie MD Primary Care Provider: Davion Griggs MD Chief Complaint: Chest pain, SOB History of Present Illness Myesha Parker is a 72 year old female with history of diastolic CHF, seronegative RA , on Humira and methotrexate , COPD, uses 2 to 3 L of oxygen at baseline and Bipap at home, A fib not on a/c due to recurrent falls,who has had multiple hospital admissions here recently for acute on chronic dyspnea, shortness of breath, hypoxic hypercapnic respiratory failures. Review of records shows that she has had admission for this reason between June 16 to June 19, then 06/30 to 07/03 in addition to having intermittent ER visits for the same reason. she has been noted to have patchy left bilateral groundglass opacities and has been treated for COPD exacerbation and CHF exacerbation on these past admissions. She presents to the emergency room today with complaints of increased dyspnea and shortness of breath since her last discharge on 07/03/2023. She is also noted to have an increased oxygen requirement today at 5 L/min from a baseline of 2 to 3 L/min. Review of systems is positive for increased weakness, fatigue. No hemoptysis. Reports increased cough and some expectoration. Review of Systems General: Reports: 10 or more systems reviewed and unremarkable except in HPI and below Const: Denies: fever(s), chills or body aches Eyes: Denies: change in vision, blurry vision or photophobia ENMT: Reports: hoarseness; Denies: throat pain, enlarged tonsils, odynophagia or nasal congestion Card: Denies: chest pain, palpitations, irregular heart rhythm, edema, swelling of feet/ankles, lightheadedness, pre-syncope, dyspnea on exertion or orthopnea Resp: Denies: dyspnea, productive cough, non-productive cough, wheezing, stridor, pain on inspiration, change in phlegm color, hemoptysis or chest congestion GI: Denies: abdominal pain, nausea, vomiting, hematemesis, coffee ground emesis, dysphagia, heartburn, diarrhea, constipation, GI cramping, change in stool character, hematochezia or melena : Denies: flank pain, difficulty voiding, dysuria, urinary frequency, urinary urgency, urinary hesitancy or hematuria Musc: Denies: neck pain, back pain, extremity pain, joint swelling, joint warmth or deformity Neuro: Denies: headache(s), numbness in extremities, weakness in extremities, sensory changes, difficulty walking, frequent falls, dizziness, vertigo, behavioral changes, Slurred speech present or seizure-like activity Psych: Denies: anxiety, depression, suicidal ideation or homicidal ideation Endo: Denies: polyuria, polydipsia, tired all the time, cold intolerance or hot flashes Quincy/Lymph: Denies: easy bruising or easy bleeding Medications/Allergies Home Medications Medication Instructions Recorded Confirmed Last Taken Type acetaminophen 650 mg 650 mg PO Q4H PRN Pain 10/12/19 07/25/23 11/04/21 History tablet,extended release (Arthritis Pain Reliever) cholecalciferol (vitamin D3) 25 1,000 unit PO QAM 10/12/19 07/25/23 07/25/23 History mcg (1,000 unit) tablet (Vitamin D3) nitroglycerin 0.4 mg sublingual 0.4 mg sublingual Q5M PRN Chest 02/08/21 07/25/23 Unknown Rx tablet (Nitrostat) Pain #30 tabs chlorpheniramine maleate 4 mg See Rx Instructions .Route .COMPLEX 03/16/21 07/25/23 07/25/23 History tablet (ChlorTabs) cyanocobalamin (vitamin B-12) 500 500 mcg PO QAM 03/16/21 07/25/23 07/25/23 History mcg tablet (Vitamin B-12) diphenhydramine HCl 25 mg capsule See Rx Instructions .Route .COMPLEX 03/16/21 07/25/23 06/29/23 History (Benadryl) docusate sodium 250 mg capsule 250 mg PO QAM 03/16/21 07/25/23 07/25/23 History (Stool Softener) ferrous gluconate 324 mg (37.5 mg 324 mg PO DAILY@05/06/21 07/25/23 07/24/23 History iron) tablet calcium carbonate 600 mg calcium 600 mg PO DAILY@06/27/21 07/25/23 07/24/23 History (1,500 mg) tablet (Calcium) levothyroxine 150 mcg tablet 150 mcg PO QAM 06/27/21 07/25/23 07/25/23 History (Euthyrox) pantoprazole 40 mg tablet,delayed 40 mg PO BID 09/13/21 07/25/23 07/25/23 History release hydralazine 10 mg tablet 10 mg PO TID #270 tabs 04/03/23 07/25/23 07/25/23 06:30 Rx lisinopril 40 mg tablet 40 mg PO QPM #30 tabs 04/03/23 07/25/23 07/24/23 Rx magnesium L-lactate 84 mg 84 mg PO BID #180 tabs 04/03/23 07/25/23 07/25/23 Rx tablet,extended release pyridostigmine bromide 60 mg tablet 60 mg PO QAM 04/17/23 07/25/23 1 Week Ago History ~07/18/23 tramadol 50 mg tablet 50 mg PO TID 04/17/23 07/25/23 1 Week Ago History ~07/18/23 methotrexate sodium 2.5 mg tablet 15 mg (6 x 2.5 mg) PO Q7D #90 tabs 04/24/23 07/25/23 2 Weeks Ago Rx ~07/11/23 glucose 4 gram chewable tablet 4 g PO PRN PRN Hypoglycemia 06/17/23 07/25/23 Unknown History metoprolol succinate 100 mg 100 mg PO QAM 06/17/23 07/25/23 07/25/23 History tablet,extended release 24 hr fluticasone fur. 200 mcg-umeclid 1 inh inhalation DAILY #28 ea 06/20/23 07/25/23 06/30/23 Rx 62.5 mcg-vilant 25 mcg inhalat.powder (Trelegy Ellipta) adalimumab 40 mg/0.8 mL See Rx Instructions .Route 06/26/23 07/25/23 07/21/23 Rx subcutaneous pen kit (Humira Pen) .COMPLEX #2 ea atorvastatin 80 mg tablet 80 mg PO BEDTIME 07/25/23 07/25/23 07/24/23 History digoxin 125 mcg (0.125 mg) tablet See Rx Instructions .Route .COMPLEX 07/25/23 07/25/23 07/25/23 History 62.5mcg duloxetine 60 mg capsule,delayed 60 mg PO QAM 07/25/23 07/25/23 07/25/23 History release folic acid 1 mg tablet 1 mg PO QAM 07/25/23 07/25/23 07/25/23 History furosemide 20 mg tablet 20 mg PO QAM 07/25/23 07/25/23 07/25/23 History hydrocodone 7.5 mg-acetaminophen 1 tab PO TID 07/25/23 07/25/23 07/25/23 History 325 mg tablet insulin lispro 100 unit/mL See Rx Instructions .Route .COMPLEX 07/25/23 07/25/23 Unknown History subcutaneous pen levofloxacin 750 mg tablet 750 mg PO DAILY@17 07/25/23 07/25/23 07/24/23 History omega-3 fatty acids 1,000 mg 2,000 mg PO BEDTIME 07/25/23 07/25/23 07/24/23 History capsule potassium chloride 20 mEq 20 meq PO QAM 07/25/23 07/25/23 07/25/23 History tablet,extended release pyridoxine (vitamin B6) 500 mg 500 mg PO QAM 07/25/23 07/25/23 07/25/23 History tablet riboflavin (vitamin B2) 100 mg 100 mg PO QAM 07/25/23 07/25/23 07/25/23 History tablet (Vitamin B-2) zinc acetate 50 mg (zinc) capsule 50 mg PO DAILY@12 07/25/23 07/25/23 07/24/23 History Allergies Allergy/AdvReac Type Severity Reaction Status Date / Time adhesive tape Allergy rash Verified 06/30/23 17:49 cinnamon Allergy sinus Verified 06/30/23 17:49 codeine Allergy unknown Verified 06/30/23 17:49 cedar Allergy sinus Uncoded 06/30/23 17:49 pine Allergy sinus Uncoded 06/30/23 17:49 pork food Allergy ADR-Nausea Uncoded 06/30/23 17:49 PFSH Acute PFSH: Medical History Major depressive disorder, recurrent episode, moderate with anxious distress Duodenal ulcer due to bacteria Psychiatric care Coronary artery disease Immunization counseling High risk medication use Chronic knee pain Chronic low back pain COVID-14 August 2020 Seronegative rheumatoid arthritis of both hands Intermittent atrial fibrillation Poorly controlled diabetes mellitus UTI (urinary tract infection) CHF exacerbation Narrow complex tachycardia Inflammatory arthritis Osteoarthritis of knees, bilateral Fibromyalgia Lung nodule Unstable angina Low back pain of over 3 months duration Urgency incontinence Left renal mass COPD (chronic obstructive pulmonary disease) Oxygen dependent, 2 L at baseline Anxiety and depression Hypothyroidism Liver cirrhosis Hyperlipidemia Hypertension Recurrent UTI Surgical History History of cholecystectomy History of thyroid surgery History of cardiac cath History of hysterectomy History of knee replacement Family History Other CAD (coronary artery disease) Cancer Denies family history of Anesthesia complication Bleeding disorder Social History Smoking and tobacco/nicotine status: former use of tobacco/nicotine Quit status (tobacco/nicotine): has quit using Year quit tobacco: 2005 Second hand smoke exposure: No Alcohol intake: never Substance/Drug Use: never Adopted: No Caregiver/support person: No Lives independently: No Household members: spouse Marital status: Current occupational status: retired Current gender identity: Female Vitals/I&O/Wt Last Vital Signs Temp 98.3 F 07/25/23 09:49 Pulse 88 07/25/23 17:00 Resp 17 07/25/23 17:00 BP 124/90 07/25/23 17:00 Pulse Ox 92 07/25/23 17:00 O2 Del Method Nasal Cannula 07/25/23 09:53 O2 Flow Rate 5 07/25/23 09:53 07/25/23 07/25/23 07/25/23 06:59 14:59 22:59 Intake Total 50 / 50 Balance 50 / 50 Weight last 48 hrs Weight 99.79 kg Physical Exam Narrative: General: No acute distress, AO x3 HEENT: PERRLA, pupils bilaterally equal and reactive, pallors not present Chest: Normal vesicular breath sounds, no added sounds, equal good air entry bilaterally CVS: S1-S2 regular, no murmurs, no tachycardia, no gallops, no rubs Abdomen: Soft, nontender, no organomegaly, bowel sounds present Neuro: No focal deficits, no facial deformity, AO x3, power 5/5 in all limbs Extremities: 1+ pedal edema B/L Data 07/26/23 08:55 07/26/23 08:55 Other Labs: Clean [address] [address] [address] Scan Report Signed Patient: Myesha Parker Unit #: [id number] : [id number] Age/Sex: 72 / F ADM Date: 07/25/23 Loc: ER Room/Bed: Attending Dr: Ordering Provider/Ordering MD: Kenrick Treviño DO Date of Service: 07/25/23 Procedure(s): CT angio chest PE protcl [id number] Accession Number(s): [id number] Report Number: [id number] WS: [id number] CTA OF THE CHEST WITH PULMONARY EMBOLISM PROTOCOL TECHNIQUE: High-resolution contrast enhanced CTA of the chest with coronal and sagittal reformatted images with pulmonary embolism protocol. MIP images are also reviewed. CLINICAL INFORMATION: dyspnea/hypoxia/tachycardia COMPARISON: 07/01/2023 and 06/16/2023 DLP: 67.[address] scans at [facility] use at least one of these dose optimization techniques: automated exposure control; mA and/or kV adjustment per patient size (includes targeted exams where dose is matched to clinical indication); or iterative reconstruction. FINDINGS: Shallow inspiration. Cardiomegaly. Proximal main pulmonary arteries patent. Normal segmental and subsegmental pulmonary arteries. No evidence of pulmonary embolus. Enlarged main pulmonary arteries can be seen with pulmonary arterial hypertension unchanged. Aortic calcification. Coronary calcification. No mediastinal or hilar lymphadenopathy. No axillary lymphadenopathy. Small to moderate RIGHT and small LEFT pleural effusions with compressive atelectasis in the lung bases. Hazy groundglass infiltrates in the perihilar regions and upper lobes likely due to pulmonary edema. Partially visualized cirrhotic liver. Tiny esophageal hiatal hernia. IMPRESSION: 1. No evidence of pulmonary embolus. 2. Small to moderate RIGHT and small LEFT pleural effusions unchanged since 07/01/2023. Compressive atelectasis in the lung bases. 3. Cardiomegaly. 4. Enlarged central pulmonary arteries can be seen with pulmonary arterial hypertension unchanged. 5. Cirrhotic liver. Shallow inspiratio Micro: Microbiology 07/25/23 10:48 Blood Culture - Preliminary Blood SPECIMEN COLLECTED 07/25/23 10:43 Blood Culture - Preliminary Blood SPECIMEN COLLECTED A&P Assessment and plan (1) COPD (chronic obstructive pulmonary disease): Qualifiers: COPD type: unspecified COPD Qualified Code(s): J44.9 - Chronic obstructive pulmonary disease, unspecified (2) Acute and chronic respiratory failure with hypoxia: (3) PNA (pneumonia): (4) Pleural effusion: Attestations Medical Necessity Statement*: 72-year-old lady with COPD, CHF, currently admitted to the hospital with acute on chronic hypoxic respiratory failure with multiple recent hospital admissions for the same reason. Recent chest x-rays and CAT scans have shows bilateral infiltrates which may represent pneumonic infiltrates versus pulmonary edema. Obtain sputum culture Given that patient is immunocompromised on Humira and methotrexate, reasonable to Exclude opportunistic infections or from Check serum, beta glucan, serum Aspergillus galactomannan, PCP PCR MTB PCR and AFB culture x3. Check sputum culture Prior QuantiFERON screening from 2019 was negative. We will obtain a more recent QuantiFERON now. Check histoplasma and Coccidioides serology. Patient denies any history of recent travel. She has noted to have bilateral pleural effusions additionally, thoracentesis was attempted on her most recent admission for diagnostic purposes, however there was insufficient fluid to proceed. Empiric antibiotic coverage with piperacillin/tazobactam and vancomycin while awaiting culture data. Check respiratory viral panel. Echocardiogram from July 01, 2023 showed normal left ventricular size systolic function and wall thickness without regional wall motion abnormalities. LVEF of 65%. Aortic valve sclerosis without stenosis. Discontinue IV fluids to minimize risk for fluid overload. Continue home medications including metoprolol, lisinopril, Lasix 20 mg daily. duoneb q6h, budesonide q12h Flutter valve/spirometer at bedside CTA PE negative for PE Coding Level of Care Code Acute Code for Chg Fwd High MDM includes number and complexity of problems actively addressed during encounter, amount and/or complexity of data reviewed/ordered and described risk of complication, morbidity or mortality of management as documented Diagnoses Chronic obstructive pulmonary disease, unspecified COPD type J44.9 COPD type: unspecified COPD Acute and chronic respiratory failure with hypoxia J96.21 PNA (pneumonia) J18.9 Pleural effusion J90
--- NOTE | 2023-07-25 19:13 | PC.NURSE ---
RN into room to discuss oxygen needs with pt. pt states she has been on 4L NC at home. Pt is currently on 8L and able to hold conversation without difficulty.
[2023-07-25] MEDS: HYDROcodone-acetaminophen 7.5-325 mg Tablet 1 TAB PO (22:15)
[2023-07-25] MEDS: enoxaparin 40 mg/0.4 mL Syringe SUBCUT (22:16)
[2023-07-25] MEDS: atorvastatin 40 mg Tablet 80 MG PO (22:16)
[2023-07-25] MEDS: hyDRALAzine 10 mg Tablet PO (22:16)
[2023-07-25] MEDS: sodium chloride 0.9% 1,000 ML 100 ML IV (22:17)
[2023-07-26] VITALS (15 sets, daily range): BP systolic 140–164; BP diastolic 70–107; PULSE 87–110; RESP 16–22; TEMP 36.4–37; O2SAT 90–98
[2023-07-26] MEDS: piperacillin-tazobactam 3.375 GM in sodium chloride 0.9% (plus) 50 ML IV ×3 (03:33→20:17)
[2023-07-26] MEDS: metoprolol succinate ER (24 HR) 100 mg Tablet PO (05:23)
[2023-07-26] MEDS: pyridostigmine 60 mg Tablet PO (05:23)
[2023-07-26] MEDS: levothyroxine 150 mcg Tablet PO (05:23)
[2023-07-26] MEDS: duloxetine 60 mg Capsule PO (05:24)
[2023-07-26] MEDS: ipratropium-albuterol 3 mL Neb INHALATION ×3 (08:35→20:59)
[2023-07-26 09:11] LABS: Basophils % 0.8 %; Eosinophils # 0.1 10^3/uL (0.0-0.8); Eosinophils % 1.1 %; Hematocrit 30.4 % (36-47); Lymphocytes # 0.8 10^3/uL (0.8-4.8); Lymphocytes % 15.9 %; Mean Corpuscular HGB Conc 28.6 g/dL (30-55); Mean Corpuscular Hemoglobin 27.3 pg (27-33); Mean Corpuscular Volume 95.3 fl (85-98); Mean Platelet Volume 9.4 fL (7.4-10.4); Monocytes # 0.5 10^3/uL (0.2-0.9); Monocytes % 9.5 %; Neutrophils # 3.79 10^3/uL (1.8-7.7); Neutrophils % 71.9 %; Nucleated Red Blood Cells % 0 %; Platelet Count 219 10^3/cmm (157-399); Red Blood Count 3.19 10^6/uL (3.85-5.65); White Blood Count 5.27 10^3/uL (3.29-11.43)
[2023-07-26 09:30] LABS: Alanine Aminotransferase 21 U/L (0-33); Albumin Level 3.5 g/dL (3.5-5.2); Alkaline Phosphatase 129 U/L (35-105); Anion Gap 11.1 (5-19); Aspartate Amino Transferase 31 U/L (0-32); Blood Urea Nitrogen 24 mg/dL (8-23); Calcium 9.4 mg/dL (8.5-10.5); Carbon Dioxide 36 mmol/L (22-29); Chloride 100 mmol/L (98-107); Globulin 2.8 g/dL (1.3-4.6); Glucose 271 mg/dL (65-115); Osmolality Calculated 310 mOsm/kg (285-295); Potassium 4.1 mmol/L (3.5-5.1); Sodium 143 mmol/L (136-145); Total Bilirubin 0.3 mg/dL (0.15-1.2); Total Protein 6.3 g/dL (6.6-8.7)
[2023-07-26] MEDS: vancomycin 1,000 MG in sodium chloride 0.9% 250 ML 250 MG IV (10:09)
[2023-07-26] MEDS: sodium chloride 0.9% 1,000 ML 100 ML IV (10:11)
[2023-07-26] MEDS: pantoprazole DR 40 mg Tablet PO (10:14)
[2023-07-26] MEDS: HYDROcodone-acetaminophen 7.5-325 mg Tablet 1 TAB PO ×3 (10:14→20:15)
[2023-07-26] MEDS: digoxin 125 mcg Tablet PO (10:14)
[2023-07-26] MEDS: hyDRALAzine 10 mg Tablet PO ×3 (10:14→20:15)
--- NOTE | 2023-07-26 10:33 | PC.CHAP ---
Pastoral Care Encounter/Spiritual Assessment Type of Contact [] Declined edging machine setter visit [] Patient/Family/Request visit [] Outpatient visit [] Follow-up visit [] Physician referral [] Code/Alert [x] Routine visit [] Staff referral [] Actively dying [] Patient sleeping [] Family support [] [] Out of room [] Palliative care [] [] Receiving care in room [] Pre-surgical visit [] Trauma [] Long length of stay [] ICU visit [x] Other: Isolation Relational/Emotional Strength [] Patient feels connected with others/family/visitors/staff [] Distress [] Loneliness/isolation [] Abandonment Spirituality of Patient [] Person of Joelle [] Attends Protestant of their Joelle [] Believes in Prayer [] Reads Bible or Shinto materials [] There are Spiritual issues to be addressed Hospice Volunteer Interventions [] Prayer [] Active listening [] Non-anxious presence [] Spiritual/emotional support [] Crisis/trauma care [] Spiritual counseling [] Bereavement support [] Provided bereavement packet [] Provided Bible/devotional materials [] Provided toy/stuffed animal, coloring book to patient or family member [] Provided Communion [] Anointing/[place] [] Salvation [] Completed spiritual assessment [] Other: Impact on Illness or Injury [] Angry [] Fearful [] Anxious [] Often cries [] Exhaustion [] Unable to work [] Unable to attend mu-ism [] Unable to walk/stand [] Unable to read [] Unable to drive [] Unable to eat/drink [] Unable to sleep [] Unable to be with family [] Patient intubated [] Other: Summary Isolation Time spent with patient 5 mins
[2023-07-26] MEDS: FUROsemide 10 mg/mL SDV 4mL 40 MG IVP (17:10)
--- NOTE | 2023-07-26 18:40 | P.PN_ITS ---
Subjective 2 Subjective: no acute interim events Medications: Reviewed: Yes Vitals/I&O/Wt Last Vital Signs Temp 97.9 F 07/27/23 16:00 Pulse 104 H 07/27/23 16:00 Resp 16 07/27/23 15:41 BP 173/87 07/27/23 16:00 Pulse Ox 96 07/27/23 16:00 O2 Del Method Nasal Cannula 07/27/23 16:00 O2 Flow Rate 3 07/27/23 15:41 07/27/23 07/27/23 07/27/23 06:59 14:59 22:59 Intake Total 300 / 3490 530 / 530 Balance 300 / 3490 530 / 530 Weight last 48 hrs Weight 113.001 kg Weight 110.705 kg Weight 111.402 kg Physical Exam 2 Narrative: General: No acute distress, AO x3 HEENT: PERRLA, pupils bilaterally equal and reactive, pallors not present Chest: Normal vesicular breath sounds, no added sounds, equal good air entry bilaterally CVS: S1-S2 regular, no murmurs, no tachycardia, no gallops, no rubs Abdomen: Soft, nontender, no organomegaly, bowel sounds present Neuro: No focal deficits, no facial deformity, AO x3, power 5/5 in all limbs Data 07/27/23 06:22 07/26/23 18:47 A&P Assessment and plan (1) COPD (chronic obstructive pulmonary disease): Qualifiers: COPD type: unspecified COPD Qualified Code(s): J44.9 - Chronic obstructive pulmonary disease, unspecified (2) Acute and chronic respiratory failure with hypoxia: (3) PNA (pneumonia): (4) Pleural effusion: (5) CHF (congestive heart failure): acute on chronic with preserved EF Plan 72-year-old lady with COPD, CHF, currently admitted to the hospital with acute on chronic hypoxic respiratory failure with multiple recent hospital admissions for the same reason.Recent chest x-rays and CAT scans have shows bilateral infiltrates which may represent pneumonic infiltrates versus pulmonary edema. pending sputum culture pending serum, beta glucan, serum Aspergillus galactomannan, PCP PCR, MTB PCR and AFB culture x3. Prior QuantiFERON screening from 2019 was negative. pending more recent QuantiFERON now. Previous PPD positive per patient these were reportedly determined to be false positives pending histoplasma and Coccidioides serology. Patient denies any history of recent travel. She has noted to have bilateral pleural effusions additionally, thoracentesis was attempted on her most recent admission for diagnostic purposes, however there was insufficient fluid to proceed. Empiric antibiotic coverage with piperacillin/tazobactam and vancomycin while awaiting culture data. Lasix 40mg iv today negative respiratory viral panel. Echocardiogram from July 01, 2023 showed normal left ventricular size systolic function and wall thickness without regional wall motion abnormalities. LVEF of 65%. Aortic valve sclerosis without stenosis. Continue home medications including metoprolol, lisinopril duoneb q6h, budesonide q12h Flutter valve/spirometer at bedside CTA PE negative for PE Attestations 2 Medical Necessity Statement*: need for iv diuresis, iv abx Coding Level of Care Code Acute Code for Chg Fwd Diagnoses Chronic obstructive pulmonary disease, unspecified COPD type J44.9 COPD type: unspecified COPD Acute and chronic respiratory failure with hypoxia J96.21 PNA (pneumonia) J18.9 Pleural effusion J90 CHF (congestive heart failure) I50.9
[2023-07-26 19:32] LABS: Alanine Aminotransferase 22 U/L (0-33); Albumin Level 3.4 g/dL (3.5-5.2); Alkaline Phosphatase 127 U/L (35-105); Anion Gap 15.1 (5-19); Aspartate Amino Transferase 25 U/L (0-32); Blood Urea Nitrogen 25 mg/dL (8-23); Calcium 8.9 mg/dL (8.5-10.5); Carbon Dioxide 30 mmol/L (22-29); Chloride 99 mmol/L (98-107); Globulin 2.7 g/dL (1.3-4.6); Glucose 260 mg/dL (65-115); Osmolality Calculated 303 mOsm/kg (285-295); Potassium 4.1 mmol/L (3.5-5.1); Sodium 140 mmol/L (136-145); Total Bilirubin 0.3 mg/dL (0.15-1.2); Total Protein 6.1 g/dL (6.6-8.7)
[2023-07-26] MEDS: atorvastatin 40 mg Tablet 80 MG PO (20:15)
[2023-07-26] MEDS: enoxaparin 40 mg/0.4 mL Syringe SUBCUT (20:16)
[2023-07-27] VITALS (12 sets, daily range): BP systolic 144–177; BP diastolic 76–96; PULSE 84–111; RESP 16–22; TEMP 36.4–36.7; O2SAT 90–96
[2023-07-27] MEDS: vancomycin 1,000 MG in sodium chloride 0.9% 250 ML 250 MG IV ×2 (00:48→20:11)
[2023-07-27] MEDS: levothyroxine 150 mcg Tablet PO (05:12)
[2023-07-27] MEDS: pyridostigmine 60 mg Tablet PO (05:12)
[2023-07-27] MEDS: metoprolol succinate ER (24 HR) 100 mg Tablet PO (05:12)
[2023-07-27] MEDS: piperacillin-tazobactam 3.375 GM in sodium chloride 0.9% (plus) 50 ML IV ×3 (05:12→22:36)
[2023-07-27] MEDS: duloxetine 60 mg Capsule PO (05:12)
[2023-07-27 06:34] LABS: Basophils # 0.1 10^3/uL (0.0-0.1); Basophils % 0.9 %; Eosinophils # 0.1 10^3/uL (0.0-0.8); Hematocrit 30.9 % (36-47); Lymphocytes # 0.9 10^3/uL (0.8-4.8); Lymphocytes % 15.9 %; Mean Corpuscular HGB Conc 28.8 g/dL (30-55); Mean Corpuscular Hemoglobin 27.3 pg (27-33); Mean Corpuscular Volume 94.8 fl (85-98); Mean Platelet Volume 9.4 fL (7.4-10.4); Monocytes # 0.7 10^3/uL (0.2-0.9); Neutrophils # 4.02 10^3/uL (1.8-7.7); Neutrophils % 69.7 %; Nucleated Red Blood Cells % 0 %; Platelet Count 217 10^3/cmm (157-399); Red Blood Count 3.26 10^6/uL (3.85-5.65); Red Cell Distribution Width 16.9 % (12.1-15.1); White Blood Count 5.77 10^3/uL (3.29-11.43)
[2023-07-27] MEDS: ipratropium-albuterol 3 mL Neb INHALATION ×3 (08:32→15:39)
[2023-07-27] MEDS: HYDROcodone-acetaminophen 7.5-325 mg Tablet 1 TAB PO ×3 (08:46→20:13)
[2023-07-27] MEDS: hyDRALAzine 10 mg Tablet PO ×3 (08:47→20:13)
[2023-07-27] MEDS: pantoprazole DR 40 mg Tablet PO (08:47)
[2023-07-27] MEDS: digoxin 125 mcg Tablet 62.5 MCG PO (08:47)
--- NOTE | 2023-07-27 13:15 | PC.SOCIAL ---
IMM Update pg 2 of IMM updated and reviewed w/ patient. Copy provided and copy dated, initialed and placed in chart.
[2023-07-27 16:21] LABS: Glucose Point of Care 301 mg/dL (70-110)
--- NOTE | 2023-07-27 18:30 | P.PN_ITS ---
Subjective 2 Subjective: afebrile, hemodynamically stable, no acute events, increased lower extremity edema today. Currently on 3 L/min supplemental O2. Vitals/I&O/Wt Last Vital Signs Temp 97.9 F 07/27/23 16:00 Pulse 104 H 07/27/23 16:00 Resp 16 07/27/23 15:41 BP 173/87 07/27/23 16:00 Pulse Ox 96 07/27/23 16:00 O2 Del Method Nasal Cannula 07/27/23 16:00 O2 Flow Rate 3 07/27/23 15:41 07/27/23 07/27/23 07/27/23 06:59 14:59 22:59 Intake Total 300 / 3490 530 / 530 Balance 300 / 3490 530 / 530 Weight last 48 hrs Weight 113.001 kg Weight 110.705 kg Weight 111.402 kg Physical Exam 2 Narrative: General: No acute distress, AO x3 HEENT: PERRLA, pupils bilaterally equal and reactive, pallors not present Chest: Normal vesicular breath sounds, no added sounds, equal good air entry bilaterally CVS: S1-S2 regular, no murmurs, no tachycardia, no gallops, no rubs Abdomen: Soft, nontender, no organomegaly, bowel sounds present Neuro: No focal deficits, no facial deformity, AO x3, power 5/5 in all limbs Extremities: 1+ pedal edema B/L increased over yesterday's exam Data 07/27/23 06:22 07/26/23 18:47 A&P Assessment and plan (1) COPD (chronic obstructive pulmonary disease): Qualifiers: COPD type: unspecified COPD Qualified Code(s): J44.9 - Chronic obstructive pulmonary disease, unspecified (2) Acute and chronic respiratory failure with hypoxia: (3) PNA (pneumonia): (4) Pleural effusion: Plan 72-year-old lady with COPD, CHF, currently admitted to the hospital with acute on chronic hypoxic respiratory failure with multiple recent hospital admissions for the same reason.Recent chest x-rays and CAT scans have shows bilateral infiltrates which may represent pneumonic infiltrates versus pulmonary edema. pending sputum culture pending serum, beta glucan, serum Aspergillus galactomannan, PCP PCR, MTB PCR and AFB culture x3. Prior QuantiFERON screening from 2019 was negative. pending more recent QuantiFERON now. pending histoplasma and Coccidioides serology. Patient denies any history of recent travel. She has noted to have bilateral pleural effusions additionally, thoracentesis was attempted on her most recent admission for diagnostic purposes, however there was insufficient fluid to proceed. Empiric antibiotic coverage with piperacillin/tazobactam and vancomycin while awaiting culture data. Lasix 40mg iv q12h today for increasing edema negative respiratory viral panel. Echocardiogram from July 01, 2023 showed normal left ventricular size systolic function and wall thickness without regional wall motion abnormalities. LVEF of 65%. Aortic valve sclerosis without stenosis. Continue home medications including metoprolol, lisinopril Increase metoprolol to 75mg BID for tachycardia duoneb q6h, budesonide q12h Flutter valve/spirometer at bedside CTA PE negative for PE Attestations 2 Medical Necessity Statement*: Continued need for IV antibiotics, evaluate for opportunistic pneumonia, IV diuresis Coding Level of Care Code Acute Code for Chg Fwd Diagnoses Chronic obstructive pulmonary disease, unspecified COPD type J44.9 COPD type: unspecified COPD Acute and chronic respiratory failure with hypoxia J96.21 PNA (pneumonia) J18.9 Pleural effusion J90
[2023-07-27] MEDS: FUROsemide 10 mg/mL SDV 4mL 40 MG IVP (19:01)
[2023-07-27] MEDS: enoxaparin 40 mg/0.4 mL Syringe SUBCUT (20:12)
[2023-07-27] MEDS: atorvastatin 40 mg Tablet 80 MG PO (20:13)
[2023-07-27 20:38] LABS: Glucose Point of Care 373 mg/dL (70-110)
[2023-07-27 21:09] LABS: Alanine Aminotransferase 25 U/L (0-33); Albumin Level 3.4 g/dL (3.5-5.2); Alkaline Phosphatase 130 U/L (35-105); Anion Gap 11.7 (5-19); Aspartate Amino Transferase 27 U/L (0-32); Blood Urea Nitrogen 23 mg/dL (8-23); Calcium 8.9 mg/dL (8.5-10.5); Carbon Dioxide 34 mmol/L (22-29); Chloride 100 mmol/L (98-107); Globulin 2.8 g/dL (1.3-4.6); Glucose 358 mg/dL (65-115); Magnesium 1.5 mg/dL (1.7-2.3); Osmolality Calculated 312 mOsm/kg (285-295); Potassium 3.7 mmol/L (3.5-5.1); Sodium 142 mmol/L (136-145); Total Bilirubin 0.2 mg/dL (0.15-1.2); Total Protein 6.2 g/dL (6.6-8.7)
[2023-07-27] MEDS: insulin lispro 100 unit/1 mL SUBCUT (22:36)
--- NOTE | 2023-07-27 23:11 | PC.RESP ---
Missed dose, RT in ER for extended period of time.
[2023-07-28] VITALS (11 sets, daily range): BP systolic 108–165; BP diastolic 68–98; PULSE 92–111; RESP 18–20; TEMP 36.4–37.1; O2SAT 93–98; BMI 39.9
[2023-07-28] MEDS: piperacillin-tazobactam 3.375 GM in sodium chloride 0.9% (plus) 50 ML IV ×3 (04:51→21:21)
[2023-07-28] MEDS: duloxetine 60 mg Capsule PO (05:00)
[2023-07-28] MEDS: levothyroxine 150 mcg Tablet PO (05:00)
[2023-07-28] MEDS: pyridostigmine 60 mg Tablet PO (05:01)
[2023-07-28 05:36] LABS: Basophils % 0.7 %; Eosinophils # 0.1 10^3/uL (0.0-0.8); Eosinophils % 1.8 %; Hematocrit 29.8 % (36-47); Lymphocytes # 0.9 10^3/uL (0.8-4.8); Lymphocytes % 16.8 %; Mean Corpuscular HGB Conc 28.9 g/dL (30-55); Mean Corpuscular Volume 93.4 fl (85-98); Mean Platelet Volume 9.4 fL (7.4-10.4); Monocytes # 0.6 10^3/uL (0.2-0.9); Monocytes % 10.9 %; Neutrophils # 3.75 10^3/uL (1.8-7.7); Neutrophils % 69.2 %; Nucleated Red Blood Cells % 0 %; Platelet Count 211 10^3/cmm (157-399); Red Blood Count 3.19 10^6/uL (3.85-5.65); Red Cell Distribution Width 16.9 % (12.1-15.1); White Blood Count 5.42 10^3/uL (3.29-11.43)
[2023-07-28] MEDS: FUROsemide 10 mg/mL SDV 4mL 40 MG IVP ×2 (06:21→17:30)
[2023-07-28 07:27] LABS: Glucose Point of Care 202 mg/dL (70-110)
[2023-07-28] MEDS: pantoprazole DR 40 mg Tablet PO (08:20)
[2023-07-28] MEDS: HYDROcodone-acetaminophen 7.5-325 mg Tablet 1 TAB PO ×3 (08:20→21:22)
[2023-07-28] MEDS: hyDRALAzine 10 mg Tablet PO ×2 (08:20→16:24)
[2023-07-28] MEDS: metoprolol tartrate 50 mg Tablet 75 MG PO ×2 (08:21→21:22)
[2023-07-28] MEDS: insulin lispro 100 unit/1 mL SUBCUT ×4 (08:22→23:05)
[2023-07-28] MEDS: digoxin 125 mcg Tablet PO (08:26)
[2023-07-28] MEDS: ipratropium-albuterol 3 mL Neb INHALATION ×2 (08:47→16:34)
[2023-07-28 11:44] LABS: Glucose Point of Care 281 mg/dL (70-110)
[2023-07-28] MEDS: acetaminophen 325 mg Tablet 650 MG PO (12:19)
[2023-07-28] MEDS: vancomycin 1,000 MG in sodium chloride 0.9% 250 ML 250 MG IV (16:25)
[2023-07-28 16:40] LABS: Glucose Point of Care 167 mg/dL (70-110)
--- NOTE | 2023-07-28 16:41 | P.PN_ITS ---
Subjective 2 Subjective: Lower extremity edema and roving today. Net -1200 cc over last 24 hours. Feels like her breathing is improving. Manzanares catheter was placed. Hemoglobin 8.6, stable creatinine stable at 1.2.BP uncontrolled Medications: Reviewed: Yes Vitals/I&O/Wt Last Vital Signs Temp 97.5 F L 07/28/23 12:00 Pulse 94 07/28/23 16:00 Resp 18 07/28/23 16:00 BP 162/90 07/28/23 12:00 Pulse Ox 95 07/28/23 16:00 O2 Del Method Nasal Cannula 07/28/23 16:00 O2 Flow Rate 2 07/28/23 16:00 07/28/23 07/28/23 07/28/23 06:59 14:59 22:59 Intake Total 50 / 880 290 / 290 Output Total 1850 / 1850 Balance -1800 / -970 290 / 290 Weight last 48 hrs Weight 109.401 kg Weight 108.862 kg Weight 113.001 kg Physical Exam 2 Narrative: General: No acute distress, AO x3 HEENT: PERRLA, pupils bilaterally equal and reactive, pallors not present Chest: Normal vesicular breath sounds, no added sounds, equal good air entry bilaterally CVS: S1-S2 regular, no murmurs, no tachycardia, no gallops, no rubs Abdomen: Soft, nontender, no organomegaly, bowel sounds present Neuro: No focal deficits, no facial deformity, AO x3, power 5/5 in all limbs Urinary Catheter Management: Manzanares Latex: Cath Placed During This Visit: yes Reason for Continuing Indwelling Catheter: Accurate Measurement of Urinary Output in Critically Ill Patients Urinary Catheter Date of Insertion: 07/27/23 Urinary Catheter Time of Insertion: 19:45 Data 07/28/23 Unknown 07/27/23 20:25 A&P Assessment and plan (1) COPD (chronic obstructive pulmonary disease): Qualifiers: COPD type: unspecified COPD Qualified Code(s): J44.9 - Chronic obstructive pulmonary disease, unspecified (2) Acute and chronic respiratory failure with hypoxia: (3) PNA (pneumonia): (4) Pleural effusion: (5) CHF (congestive heart failure): acute on chronic with preserved EF Plan 72-year-old lady with COPD, CHF, currently admitted to the hospital with acute on chronic hypoxic respiratory failure with multiple recent hospital admissions for the same reason.Recent chest x-rays and CAT scans have shows bilateral infiltrates which may represent pneumonic infiltrates versus pulmonary edema. pending sputum culture pending serum, beta glucan, serum Aspergillus galactomannan, PCP PCR, MTB PCR and AFB culture x3. Prior QuantiFERON screening from 2019 was negative. pending more recent QuantiFERON now. Previous PPD positive per patient these were reportedly determined to be false positives pending histoplasma and Coccidioides serology. Patient denies any history of recent travel. She has noted to have bilateral pleural effusions additionally, thoracentesis was attempted on her most recent admission for diagnostic purposes, however there was insufficient fluid to proceed. Empiric antibiotic coverage with piperacillin/tazobactam and vancomycin while awaiting culture data. Lasix 40mg iv today negative respiratory viral panel. Echocardiogram from July 01, 2023 showed normal left ventricular size systolic function and wall thickness without regional wall motion abnormalities. LVEF of 65%. Aortic valve sclerosis without stenosis. Continue home medications including metoprolol, lisinopril duoneb q6h, budesonide q12h Flutter valve/spirometer at bedside CTA PE negative for PE Plan for today: Continue IV diuresis. Lasix 40 mg IV every 12. Uptitrate hydralazine to 25 mg 3 times daily due to uncontrolled blood pressure. Awaiting peripheral fungal and opportunistic infection work-up. Attestations 2 Medical Necessity Statement*: Continued need for IV diuresis. Awaiting opportunistic infection work-up as above. Continue IV antibiotics Coding Level of Care Code Acute Code for [facility] Fwd Diagnoses Chronic obstructive pulmonary disease, unspecified COPD type J44.9 COPD type: unspecified COPD Acute and chronic respiratory failure with hypoxia J96.21 PNA (pneumonia) J18.9 Pleural effusion J90 CHF (congestive heart failure) I50.9
[2023-07-28] MEDS: enoxaparin 40 mg/0.4 mL Syringe SUBCUT (21:20)
[2023-07-28] MEDS: atorvastatin 40 mg Tablet 80 MG PO (21:21)
[2023-07-28] MEDS: hyDRALAzine 25 mg Tablet PO (21:22)
[2023-07-28 21:42] LABS: Glucose Point of Care 247 mg/dL (70-110)
[2023-07-29] VITALS (19 sets, daily range): BP systolic 114–189; BP diastolic 62–80; PULSE 74–135; RESP 16–24; TEMP 36.3–36.8; O2SAT 90–98; BMI 39.7
[2023-07-29] MEDS: piperacillin-tazobactam 3.375 GM in sodium chloride 0.9% (plus) 50 ML IV ×3 (05:36→20:05)
[2023-07-29] MEDS: pyridostigmine 60 mg Tablet PO (05:37)
[2023-07-29] MEDS: duloxetine 60 mg Capsule PO (05:37)
[2023-07-29] MEDS: levothyroxine 150 mcg Tablet PO (05:37)
[2023-07-29] MEDS: FUROsemide 10 mg/mL SDV 4mL 40 MG IVP (05:52)
[2023-07-29] MEDS: ipratropium-albuterol 3 mL Neb INHALATION ×4 (07:40→21:11)
[2023-07-29 07:48] LABS: Glucose Point of Care 214 mg/dL (70-110)
[2023-07-29] MEDS: insulin lispro 100 unit/1 mL SUBCUT ×4 (09:14→21:33)
[2023-07-29] MEDS: metoprolol tartrate 50 mg Tablet 75 MG PO ×2 (09:15→20:04)
[2023-07-29] MEDS: digoxin 125 mcg Tablet 62.5 MCG PO (09:15)
[2023-07-29] MEDS: vancomycin 1,000 MG in sodium chloride 0.9% 250 ML 250 MG IV (09:16)
[2023-07-29] MEDS: hyDRALAzine 25 mg Tablet PO ×3 (09:16→20:04)
[2023-07-29] MEDS: HYDROcodone-acetaminophen 7.5-325 mg Tablet 1 TAB PO ×3 (09:16→20:04)
[2023-07-29] MEDS: pantoprazole DR 40 mg Tablet PO (09:16)
[2023-07-29 11:31] LABS: Glucose Point of Care 214 mg/dL (70-110)
[2023-07-29 11:52] LABS: Basophils # 0.1 10^3/uL (0.0-0.1); Basophils % 0.7 %; Eosinophils # 0.1 10^3/uL (0.0-0.8); Eosinophils % 1.3 %; Hematocrit 32.1 % (36-47); Lymphocytes # 1.2 10^3/uL (0.8-4.8); Lymphocytes % 15.5 %; Mean Corpuscular HGB Conc 28.3 g/dL (30-55); Mean Corpuscular Volume 95.3 fl (85-98); Monocytes # 0.7 10^3/uL (0.2-0.9); Monocytes % 8.7 %; Neutrophils # 5.44 10^3/uL (1.8-7.7); Neutrophils % 73.3 %; Nucleated Red Blood Cells % 0 %; Platelet Count 221 10^3/cmm (157-399); Red Blood Count 3.37 10^6/uL (3.85-5.65); Red Cell Distribution Width 16.8 % (12.1-15.1); White Blood Count 7.43 10^3/uL (3.29-11.43)
[2023-07-29 12:06] LABS: Alanine Aminotransferase 21 U/L (0-33); Albumin Level 3.4 g/dL (3.5-5.2); Alkaline Phosphatase 124 U/L (35-105); Anion Gap 10.7 (5-19); Aspartate Amino Transferase 23 U/L (0-32); Blood Urea Nitrogen 20 mg/dL (8-23); Calcium 8.8 mg/dL (8.5-10.5); Carbon Dioxide 39 mmol/L (22-29); Chloride 100 mmol/L (98-107); Globulin 2.8 g/dL (1.3-4.6); Glucose 189 mg/dL (65-115); Osmolality Calculated 310 mOsm/kg (285-295); Potassium 3.7 mmol/L (3.5-5.1); Sodium 146 mmol/L (136-145); Total Bilirubin 0.3 mg/dL (0.15-1.2); Total Protein 6.2 g/dL (6.6-8.7)
[2023-07-29] MEDS: lidocaine 5% Patch 1 PATCH TOPICAL ×2 (12:32→20:05)
[2023-07-29 16:03] LABS: Glucose Point of Care 209 mg/dL (70-110)
--- NOTE | 2023-07-29 16:36 | P.PN_ITS ---
Subjective 2 Subjective: net negtaive 2.6L over last 24 hrs, complains of back pain and generalized discomfort, upset about being sick recently. AFB smear negative x 1, MTB PCR pending Medications: Reviewed: Yes Vitals/I&O/Wt Last Vital Signs Temp 98.1 F 07/29/23 16:00 Pulse 93 07/29/23 16:00 Resp 18 07/29/23 16:00 BP 146/71 07/29/23 16:00 Pulse Ox 98 07/29/23 16:00 O2 Del Method Nasal Cannula 07/29/23 16:00 O2 Flow Rate 3 07/29/23 15:30 07/29/23 07/29/23 07/29/23 06:59 14:59 22:59 Intake Total 50 / 390 1150.000 / 1150.000 Output Total 1800 / 3400 450 / 450 Balance -1750 / -3010 700.000 / 700.000 Weight last 48 hrs Weight 108.409 kg Weight 109.401 kg Weight 108.862 kg Physical Exam 2 Narrative: General: No acute distress, AO x3 HEENT: PERRLA, pupils bilaterally equal and reactive, pallors not present Chest: crackles B/L CVS: S1-S2 regular, no murmurs, no tachycardia, no gallops, no rubs Abdomen: Soft, nontender, no organomegaly, bowel sounds present Neuro: No focal deficits, no facial deformity, AO x3, power 5/5 in all limbs ext: LE edema is slightly improved Urinary Catheter Management: Manzanares Latex: Cath Placed During This Visit: yes Reason for Continuing Indwelling Catheter: Other Urinary Catheter Date of Insertion: 07/27/23 Urinary Catheter Time of Insertion: 19:45 Data 07/29/23 11:30 07/29/23 11:30 Micro: Microbiology 07/27/23 16:15 Mycobacterial Smear - Preliminary Sputum - Expectorated Sputum A&P Assessment and plan (1) COPD (chronic obstructive pulmonary disease): Qualifiers: COPD type: unspecified COPD Qualified Code(s): J44.9 - Chronic obstructive pulmonary disease, unspecified (2) Acute and chronic respiratory failure with hypoxia: (3) PNA (pneumonia): (4) Pleural effusion: (5) CHF (congestive heart failure): acute on chronic with preserved EF Plan 72-year-old lady with COPD, CHF, currently admitted to the hospital with acute on chronic hypoxic respiratory failure with multiple recent hospital admissions for the same reason.Recent chest x-rays and CAT scans have shows bilateral infiltrates which may represent pneumonic infiltrates versus pulmonary edema. pending sputum culture evaluation ongoing for opportunistic pneumonia while remaining on emepric zosyn and vancomycin. SHe has had levaquin as outpatient recently, less likely atypical infection. AFB smear negative x 1 ,pending 2 ; MTB PCR pending pending serum beta glucan, serum Aspergillus galactomannan, PCP PCR, MTB PCR and AFB culture x3. Prior QuantiFERON screening from 2019 was negative. pending more recent QuantiFERON now. Previous PPD positive per patient these were reportedly determined to be false positives pending histoplasma and Coccidioides serology. Patient denies any history of recent travel. She has noted to have bilateral pleural effusions additionally, thoracentesis was attempted on her most recent admission for diagnostic purposes, however there was insufficient fluid to proceed. LE edema improving today, net negative 2600 cc last 24 hrs Reduce lasix 40mg iv q12h to 20 mg iv q12h today negative respiratory viral panel. Echocardiogram from July 01, 2023 showed normal left ventricular size systolic function and wall thickness without regional wall motion abnormalities. LVEF of 65%. Aortic valve sclerosis without stenosis. Continue home medications including metoprolol, lisinopril duoneb q6h, budesonide q12h Flutter valve/spirometer at bedside CTA PE negative for PE BP better today after incraesing hydralazine, continue to monitor and uptitrate as needed Attestations 2 Medical Necessity Statement*: iv diuresis, pending evaluation of possible opportunitic pneumonia Coding Level of Care Code Acute Code for [facility] Fwd Diagnoses Chronic obstructive pulmonary disease, unspecified COPD type J44.9 COPD type: unspecified COPD Acute and chronic respiratory failure with hypoxia J96.21 PNA (pneumonia) J18.9 Pleural effusion J90 CHF (congestive heart failure) I50.9
[2023-07-29 18:25] LABS: Fungitell 1-3-B Glucan Assay 123 pg/mL; Interpretation POSITIVE
--- NOTE | 2023-07-29 18:52 | PC.NURSE ---
Pt c/o sudden sharp chest pain and SOB. HR fluctuating from 88 to 120's and RR of 24. Cynthia notified. Troponin series with EKG ordered STAT.
[2023-07-29] MEDS: FUROsemide 10 mg/mL SDV 2mL 20 MG IVP (18:58)
[2023-07-29] MEDS: atorvastatin 40 mg Tablet 80 MG PO (20:04)
[2023-07-29] MEDS: enoxaparin 40 mg/0.4 mL Syringe SUBCUT (20:05)
[2023-07-29 20:20] LABS: Troponin(5th) Baseline 39 ng/L (0-10)
[2023-07-29 21:55] LABS: Glucose Point of Care 196 mg/dL (70-110)
[2023-07-30] VITALS (13 sets, daily range): BP systolic 105–175; BP diastolic 55–90; PULSE 70–108; RESP 17–22; TEMP 36.3–36.8; O2SAT 92–99
[2023-07-30 01:10] LABS: Troponin 5 6HR 39.61 ng/L (0-10); Troponin 5 6HR Delta 0.61 ng/L (0-12)
[2023-07-30] MEDS: vancomycin 1,000 MG in sodium chloride 0.9% 250 ML 250 MG IV (01:49)
[2023-07-30] MEDS: piperacillin-tazobactam 3.375 GM in sodium chloride 0.9% (plus) 50 ML IV ×3 (04:27→21:02)
[2023-07-30] MEDS: FUROsemide 10 mg/mL SDV 2mL 20 MG IVP (04:27)
[2023-07-30 05:54] LABS: Basophils # 0.1 10^3/uL (0.0-0.1); Basophils % 1.2 %; Eosinophils # 0.1 10^3/uL (0.0-0.8); Eosinophils % 1.9 %; Hematocrit 32.1 % (36-47); Lymphocytes # 1.1 10^3/uL (0.8-4.8); Lymphocytes % 19.1 %; Mean Corpuscular HGB Conc 27.7 g/dL (30-55); Mean Corpuscular Hemoglobin 26.3 pg (27-33); Mean Platelet Volume 9.2 fL (7.4-10.4); Monocytes # 0.7 10^3/uL (0.2-0.9); Monocytes % 11.4 %; Neutrophils # 3.86 10^3/uL (1.8-7.7); Neutrophils % 65.9 %; Nucleated Red Blood Cells % 0 %; Platelet Count 232 10^3/cmm (157-399); Red Blood Count 3.38 10^6/uL (3.85-5.65); Red Cell Distribution Width 17.1 % (12.1-15.1); White Blood Count 5.86 10^3/uL (3.29-11.43)
[2023-07-30] MEDS: duloxetine 60 mg Capsule PO (05:57)
[2023-07-30] MEDS: pyridostigmine 60 mg Tablet PO (05:57)
[2023-07-30] MEDS: levothyroxine 150 mcg Tablet PO (05:57)
[2023-07-30 06:18] LABS: Alanine Aminotransferase 17 U/L (0-33); Albumin Level 3.3 g/dL (3.5-5.2); Alkaline Phosphatase 108 U/L (35-105); Anion Gap 18.4 (5-19); Aspartate Amino Transferase 20 U/L (0-32); Blood Urea Nitrogen 18 mg/dL (8-23); Calcium 8.4 mg/dL (8.5-10.5); Carbon Dioxide 29 mmol/L (22-29); Chloride 99 mmol/L (98-107); Globulin 2.4 g/dL (1.3-4.6); Glucose 167 mg/dL (65-115); Magnesium 1.3 mg/dL (1.7-2.3); Osmolality Calculated 302 mOsm/kg (285-295); Potassium 3.4 mmol/L (3.5-5.1); Sodium 143 mmol/L (136-145); Total Bilirubin 0.5 mg/dL (0.15-1.2); Total Protein 5.7 g/dL (6.6-8.7)
[2023-07-30 06:38] LABS: Glucose Point of Care 210 mg/dL (70-110)
[2023-07-30] MEDS: ipratropium-albuterol 3 mL Neb INHALATION ×4 (07:28→20:49)
[2023-07-30] MEDS: lidocaine 5% Patch 1 PATCH TOPICAL (08:13)
[2023-07-30] MEDS: pantoprazole DR 40 mg Tablet PO (08:13)
[2023-07-30] MEDS: insulin lispro 100 unit/1 mL SUBCUT ×4 (08:13→21:02)
[2023-07-30] MEDS: HYDROcodone-acetaminophen 7.5-325 mg Tablet 1 TAB PO ×3 (08:13→21:01)
[2023-07-30] MEDS: hyDRALAzine 25 mg Tablet PO ×3 (08:13→21:01)
[2023-07-30] MEDS: metoprolol tartrate 50 mg Tablet 75 MG PO ×2 (08:14→21:01)
[2023-07-30] MEDS: digoxin 125 mcg Tablet PO (08:14)
[2023-07-30 12:20] LABS: Glucose Point of Care 239 mg/dL (70-110)
--- NOTE | 2023-07-30 13:48 | P.PN_ITS ---
Subjective 2 Subjective: Seen today. She states she is feeling better however not up to par. Beta D glucan positive, 132 Vitals/I&O/Wt Last Vital Signs Temp 97.3 F L 07/30/23 11:53 Pulse 84 07/30/23 11:53 Resp 20 H 07/30/23 11:53 BP 152/75 07/30/23 11:53 Pulse Ox 96 07/30/23 11:53 O2 Del Method Nasal Cannula 07/30/23 11:53 O2 Flow Rate 4 07/30/23 11:18 07/29/23 07/30/23 07/30/23 22:59 06:59 14:59 Intake Total 770 / 1920.000 300 / 2220.000 530 / 530 Output Total 100 / 550 1100 / 1650 300 / 300 Balance 670 / 1370.000 -800 / 570.000 230 / 230 Weight last 48 hrs Weight 108.771 kg Weight 108.409 kg Physical Exam 2 Narrative: General: No acute distress, AO x3, sitting up on edge of bed holding her walker. HEENT: PERRLA, pupils bilaterally equal and reactive, pallors not present Chest: Clear to auscultation today, decreased bilateral air entry absent at bases CVS: S1-S2 regular, no murmurs, no tachycardia, no gallops, no rubs Abdomen: Soft, nontender, no organomegaly, bowel sounds present Neuro: No focal deficits, no facial deformity, AO x3, ext: 2+ bilateral lower extremity edema Urinary Catheter Management: Manzanares Latex: Cath Placed During This Visit: yes Reason for Continuing Indwelling Catheter: Other Urinary Catheter Date of Insertion: 07/27/23 Urinary Catheter Time of Insertion: 19:45 Data 07/30/23 05:03 07/30/23 05:03 Micro: Microbiology 07/25/23 10:43 Blood Culture - Final Blood NO GROWTH AFTER 5 DAYS 07/25/23 10:48 Blood Culture - Final Blood NO GROWTH AFTER 5 DAYS 07/27/23 16:15 Mycobacterial Smear - Preliminary Sputum - Expectorated Sputum A&P Assessment and plan (1) COPD (chronic obstructive pulmonary disease): Qualifiers: COPD type: unspecified COPD Qualified Code(s): J44.9 - Chronic obstructive pulmonary disease, unspecified (2) Acute and chronic respiratory failure with hypoxia: (3) PNA (pneumonia): (4) Pleural effusion: (5) CHF (congestive heart failure): acute on chronic with preserved EF Plan 72-year-old lady with COPD, CHF, currently admitted to the hospital with acute on chronic hypoxic respiratory failure with multiple recent hospital admissions for the same reason.Recent chest x-rays and CAT scans have shows bilateral infiltrates which may represent pneumonic infiltrates versus pulmonary edema. pending sputum culture evaluation ongoing for opportunistic pneumonia while remaining on emepric zosyn and vancomycin. SHe has had levaquin as outpatient recently, less likely atypical infection. AFB smear negative x 1 ,pending 2 ; MTB PCR pending pending serum beta glucan, serum Aspergillus galactomannan, PCP PCR, MTB PCR and AFB culture x3. Prior QuantiFERON screening from 2019 was negative. pending more recent QuantiFERON now. Previous PPD positive per patient these were reportedly determined to be false positives pending histoplasma and Coccidioides serology. Patient denies any history of recent travel. She has noted to have bilateral pleural effusions additionally, thoracentesis was attempted on her most recent admission for diagnostic purposes, however there was insufficient fluid to proceed. LE edema 2+. She has been -3000 last 48 hours however is +700 mL today. I will increase Lasix to 40 IV twice daily at this time. check chest xray. b-d glucan weakly positive. may consider starting iv bactrim. negative respiratory viral panel. Echocardiogram from July 01, 2023 showed normal left ventricular size systolic function and wall thickness without regional wall motion abnormalities. LVEF of 65%. Aortic valve sclerosis without stenosis. Continue home medications including metoprolol, lisinopril duoneb q6h, budesonide q12h Flutter valve/spirometer at bedside CTA PE negative for PE BP better today after incraesing hydralazine, continue to monitor and uptitrate as needed Attestations 2 Medical Necessity Statement*: iv diuresis, pending evaluation of possible opportunitic pneumonia Coding Level of Care Code 30145 Diagnoses Chronic obstructive pulmonary disease, unspecified COPD type J44.9 COPD type: unspecified COPD Acute and chronic respiratory failure with hypoxia J96.21 PNA (pneumonia) J18.9 Pleural effusion J90 CHF (congestive heart failure) I50.9
--- NOTE | 2023-07-30 13:52 | XRR_ITS ---
PROCEDURE INFORMATION: Exam: XR Chest Exam date and time: 07/30/2023 3:06 PM Age: 72 years old Clinical indication: Shortness of breath; Additional info: Follow up TECHNIQUE: Imaging protocol: Radiologic exam of the chest. Views: 1 view. COMPARISON: CR XR chest 1V portable [id number] 07/25/2023 9:56 AM FINDINGS: Lungs: Diffuse bilateral pulmonary edema and/or pneumonitis. Superimposed bibasilar atelectasis. Pulmonary vascular congestion. Pleural spaces: Large right pleural effusion. Moderate left pleural effusion. No pneumothorax. Heart/Mediastinum: Cardiomegaly. Bones/joints: Unremarkable. XR/XR chest 1V portable [id number] IMPRESSION: 1. Pulmonary vascular congestion with bilateral pulmonary edema and/or pneumonitis. 2. Bilateral pleural effusions. 3. Cardiomegaly.
[2023-07-30] MEDS: FUROsemide 10 mg/mL SDV 4mL 40 MG IVP (15:03)
[2023-07-30] MEDS: potassium chloride ER 20 mEq Tablet PO (15:03)
[2023-07-30 15:34] LABS: Anion Gap 11.7 (5-19); Blood Urea Nitrogen 20 mg/dL (8-23); Calcium 8.7 mg/dL (8.5-10.5); Carbon Dioxide 36 mmol/L (22-29); Chloride 99 mmol/L (98-107); Glucose 209 mg/dL (65-115); Magnesium 1.4 mg/dL (1.7-2.3); Osmolality Calculated 305 mOsm/kg (285-295); Potassium 3.7 mmol/L (3.5-5.1); Sodium 143 mmol/L (136-145)
[2023-07-30] MEDS: magnesium sulfate premix 2 GM/50 ML PIGGYBACK IV (16:26)
[2023-07-30 16:49] LABS: Glucose Point of Care 182 mg/dL (70-110)
--- NOTE | 2023-07-30 20:22 | ECG_ITS ---
[facility] Test Date: 2023-07-30 Pat Name: Myesha Parker Department: Room: 259 Gender: Female Want Ad Receiver: : 1950 Requested By: Opal Marie Order Number: [id number] Wilbur MD: Lucia Oakley M.D. Measurements Intervals [place] Rate: 99 P: 0 TX: 0 QRS: -78 QRSD: 149 T: 89 QT: 398 QTc: 512 Interpretive Statements ATRIAL FIBRILLATION WITH ABERRANT CONDUCTION OR VENTRICULAR PREMATURE COMPLEXES RIGHT BUNDLE BRANCH BLOCK [120+ ms QRS DURATION, UPRIGHT V1, 40+ ms S IN I/aVL/V4/V5/V6] LEFT ANTERIOR FASCICULAR BLOCK [QRS AXIS <= -45, QR IN I, RS IN II] POSSIBLE ANTEROSEPTAL MYOCARDIAL INFARCTION , OF INDETERMINATE AGE [30 ms Q WAVE IN V1-V4] ST DEPRESSION, CONSIDER SUBENDOCARDIAL INJURY [0.1+ mV ST DEPRESSION] Compared to ECG 07/25/2023 16:26:26 Ventricular premature complex(es) now present Aberrant conduction of supraventricular beat(s) now present Myocardial infarct finding now present ST (T wave) deviation now present Electronically Signed On 07-30-2023 21:29:48 AUTO SERVICE REPRESENTATIVE by Lucia Oakley M.D. [email or web address] [email or web address] [id number]
[2023-07-30 20:52] LABS: Glucose Point of Care 308 mg/dL (70-110)
[2023-07-30] MEDS: atorvastatin 40 mg Tablet 80 MG PO (21:01)
[2023-07-30] MEDS: enoxaparin 40 mg/0.4 mL Syringe SUBCUT (21:01)
[2023-07-31] VITALS (11 sets, daily range): BP systolic 98–157; BP diastolic 63–82; PULSE 69–120; RESP 17–22; TEMP 36.4–37; O2SAT 93–99
[2023-07-31] MEDS: FUROsemide 10 mg/mL SDV 4mL 40 MG IVP ×2 (01:33→14:02)
[2023-07-31 03:24] LABS: Anion Gap 12.2 (5-19); Blood Urea Nitrogen 19 mg/dL (8-23); Calcium 8.6 mg/dL (8.5-10.5); Carbon Dioxide 38 mmol/L (22-29); Chloride 96 mmol/L (98-107); Glucose 139 mg/dL (65-115); Magnesium 1.5 mg/dL (1.7-2.3); Osmolality Calculated 301 mOsm/kg (285-295); Potassium 3.2 mmol/L (3.5-5.1); Sodium 143 mmol/L (136-145)
[2023-07-31] MEDS: levothyroxine 150 mcg Tablet PO (05:03)
[2023-07-31] MEDS: pyridostigmine 60 mg Tablet PO (05:03)
[2023-07-31] MEDS: duloxetine 60 mg Capsule PO (05:03)
[2023-07-31] MEDS: piperacillin-tazobactam 3.375 GM in sodium chloride 0.9% (plus) 50 ML IV ×3 (05:03→21:17)
[2023-07-31 06:29] LABS: Basophils # 0.1 10^3/uL (0.0-0.1); Basophils % 0.9 %; Eosinophils # 0.1 10^3/uL (0.0-0.8); Eosinophils % 2.2 %; Hematocrit 30.1 % (36-47); Lymphocytes % 17.2 %; Mean Corpuscular HGB Conc 29.2 g/dL (30-55); Mean Corpuscular Hemoglobin 26.7 pg (27-33); Mean Corpuscular Volume 91.5 fl (85-98); Mean Platelet Volume 9.4 fL (7.4-10.4); Monocytes # 0.8 10^3/uL (0.2-0.9); Monocytes % 13.7 %; Neutrophils # 3.85 10^3/uL (1.8-7.7); Neutrophils % 65.7 %; Nucleated Red Blood Cells % 0 %; Platelet Count 229 10^3/cmm (157-399); Red Blood Count 3.29 10^6/uL (3.85-5.65); Red Cell Distribution Width 16.6 % (12.1-15.1); White Blood Count 5.86 10^3/uL (3.29-11.43)
[2023-07-31 06:41] LABS: Glucose Point of Care 182 mg/dL (70-110)
[2023-07-31 06:54] LABS: Alanine Aminotransferase 18 U/L (0-33); Albumin Level 3.3 g/dL (3.5-5.2); Alkaline Phosphatase 102 U/L (35-105); Anion Gap 13.3 (5-19); Aspartate Amino Transferase 19 U/L (0-32); Blood Urea Nitrogen 19 mg/dL (8-23); Calcium 8.5 mg/dL (8.5-10.5); Carbon Dioxide 37 mmol/L (22-29); Chloride 96 mmol/L (98-107); Globulin 2.3 g/dL (1.3-4.6); Glucose 159 mg/dL (65-115); Osmolality Calculated 302 mOsm/kg (285-295); Potassium 3.3 mmol/L (3.5-5.1); Sodium 143 mmol/L (136-145); Total Bilirubin 0.3 mg/dL (0.15-1.2); Total Protein 5.6 g/dL (6.6-8.7)
[2023-07-31 07:01] LABS: Magnesium 1.5 mg/dL (1.7-2.3)
[2023-07-31] MEDS: ipratropium-albuterol 3 mL Neb INHALATION ×3 (07:26→16:11)
[2023-07-31] MEDS: potassium chloride ER 20 mEq Tablet 40 MEQ PO (08:54)
[2023-07-31] MEDS: pantoprazole DR 40 mg Tablet PO (08:55)
[2023-07-31] MEDS: HYDROcodone-acetaminophen 7.5-325 mg Tablet 1 TAB PO ×3 (08:55→21:18)
[2023-07-31] MEDS: hyDRALAzine 25 mg Tablet PO ×3 (08:55→21:18)
[2023-07-31] MEDS: metoprolol tartrate 50 mg Tablet 75 MG PO ×2 (08:56→21:18)
[2023-07-31] MEDS: lidocaine 5% Patch 1 PATCH TOPICAL (08:56)
[2023-07-31] MEDS: digoxin 125 mcg Tablet 62.5 MCG PO (08:56)
[2023-07-31] MEDS: insulin lispro 100 unit/1 mL SUBCUT ×4 (08:57→22:48)
[2023-07-31 10:57] LABS: Glucose Point of Care 266 mg/dL (70-110)
--- NOTE | 2023-07-31 12:19 | P.PN_ITS ---
Subjective 2 Subjective: Seen this morning. Patient states she feels better. However this morning had an issue with her IV where it came out and it was bleeding. He stated she had to wait a couple minutes before someone could come and help her. She feels she has lost enough blood that might require transfusion. She had questions regarding her test to which I told her there were still pending. Vitals/I&O/Wt Last Vital Signs Temp 98.6 F 07/31/23 12:00 Pulse 95 07/31/23 12:00 Resp 18 07/31/23 12:00 BP 155/74 07/31/23 12:00 Pulse Ox 93 07/31/23 12:00 O2 Del Method Nasal Cannula 07/31/23 11:47 O2 Flow Rate 4 07/31/23 11:47 07/30/23 07/31/23 07/31/23 22:59 06:59 14:59 Intake Total 990 / 1880 460 / 2340 290 / 290 Output Total 1800 / 2400 700 / 3100 Balance -810 / -520 -240 / -760 290 / 290 Weight last 48 hrs Weight 108.068 kg Weight 108.771 kg Physical Exam 2 Narrative: General: No acute distress, AO x3, sitting up in bed. HEENT: PERRLA, pupils bilaterally equal and reactive, pallors not present Chest: Clear to auscultation today, decreased bilateral air entry absent at bases CVS: S1-S2 regular, no murmurs, no tachycardia, no gallops, no rubs Abdomen: Soft, nontender, no organomegaly, bowel sounds present Neuro: No focal deficits, no facial deformity, AO x3, ext: 2+ bilateral lower extremity edema Urinary Catheter Management: Manzanares Latex: Cath Placed During This Visit: yes Reason for Continuing Indwelling Catheter: Accurate Measurement of Urinary Output in Critically Ill Patients Urinary Catheter Date of Insertion: 07/27/23 Urinary Catheter Time of Insertion: 19:45 Data 07/31/23 06:13 07/31/23 14:33 Micro: Microbiology 07/30/23 11:20 Gram Stain - Final Sputum - Expectorated Sputum 07/25/23 10:43 Blood Culture - Final Blood NO GROWTH AFTER 5 DAYS 07/25/23 10:48 Blood Culture - Final Blood NO GROWTH AFTER 5 DAYS A&P Assessment and plan (1) COPD (chronic obstructive pulmonary disease): Qualifiers: COPD type: unspecified COPD Qualified Code(s): J44.9 - Chronic obstructive pulmonary disease, unspecified (2) Acute and chronic respiratory failure with hypoxia: (3) PNA (pneumonia): (4) Pleural effusion: (5) CHF (congestive heart failure): acute on chronic with preserved EF Plan 72-year-old lady with COPD, CHF, currently admitted to the hospital with acute on chronic hypoxic respiratory failure with multiple recent hospital admissions for the same reason.Recent chest x-rays and CAT scans have shows bilateral infiltrates which may represent pneumonic infiltrates versus pulmonary edema. pending sputum culture evaluation ongoing for opportunistic pneumonia while remaining on emepric zosyn and vancomycin. SHe has had levaquin as outpatient recently, less likely atypical infection. AFB smear negative x 1 ,pending 2 ; MTB PCR pending pending serum beta glucan, serum Aspergillus galactomannan, PCP PCR, MTB PCR and AFB culture x3. Prior QuantiFERON screening from 2019 was negative. pending more recent QuantiFERON now. Previous PPD positive per patient these were reportedly determined to be false positives pending histoplasma and Coccidioides serology. Patient denies any history of recent travel. She has noted to have bilateral pleural effusions additionally, thoracentesis was attempted on her most recent admission for diagnostic purposes, however there was insufficient fluid to proceed. LE edema 2+. .. b-d glucan weakly positive. Continue patient on IV Bactrim every 8 hours. Watch for fluid overload. Continue on Lasix 40 IV twice daily. Monitor BMP and magnesium every 12 hours. Replete as needed. negative respiratory viral panel. Echocardiogram from July 01, 2023 showed normal left ventricular size systolic function and wall thickness without regional wall motion abnormalities. LVEF of 65%. Aortic valve sclerosis without stenosis. Continue home medications including metoprolol, lisinopril duoneb q6h, budesonide q12h Flutter valve/spirometer at bedside CTA PE negative for PE BP better today after incraesing hydralazine, continue to monitor and uptitrate as needed Attestations 2 Medical Necessity Statement*: iv diuresis, pending evaluation of possible opportunitic pneumonia Diagnoses Chronic obstructive pulmonary disease, unspecified COPD type J44.9 COPD type: unspecified COPD Acute and chronic respiratory failure with hypoxia J96.21 PNA (pneumonia) J18.9 Pleural effusion J90 CHF (congestive heart failure) I50.9
[2023-07-31 15:25] LABS: Anion Gap 13.6 (5-19); Blood Urea Nitrogen 22 mg/dL (8-23); Calcium 8.5 mg/dL (8.5-10.5); Carbon Dioxide 36 mmol/L (22-29); Chloride 93 mmol/L (98-107); Glucose 238 mg/dL (65-115); Magnesium 1.5 mg/dL (1.7-2.3); Osmolality Calculated 299 mOsm/kg (285-295); Potassium 3.6 mmol/L (3.5-5.1); Sodium 139 mmol/L (136-145)
[2023-07-31 16:42] LABS: Glucose Point of Care 186 mg/dL (70-110)
[2023-07-31] MEDS: atorvastatin 40 mg Tablet 80 MG PO (21:18)
[2023-07-31] MEDS: enoxaparin 40 mg/0.4 mL Syringe SUBCUT (21:18)
[2023-07-31 22:34] LABS: Glucose Point of Care 190 mg/dL (70-110)
[2023-08-01] VITALS (16 sets, daily range): BP systolic 126–187; BP diastolic 65–93; PULSE 86–104; RESP 16–22; TEMP 36.2–36.9; O2SAT 90–100
[2023-08-01] MEDS: FUROsemide 10 mg/mL SDV 4mL 40 MG IVP ×2 (02:34→14:55)
[2023-08-01 02:56] LABS: Basophils % 0.5 %; Eosinophils # 0.1 10^3/uL (0.0-0.8); Eosinophils % 1.6 %; Hematocrit 28.6 % (36-47); Lymphocytes # 1.3 10^3/uL (0.8-4.8); Lymphocytes % 16.7 %; Mean Corpuscular Hemoglobin 26.7 pg (27-33); Mean Platelet Volume 9.4 fL (7.4-10.4); Monocytes % 12.5 %; Neutrophils # 5.26 10^3/uL (1.8-7.7); Neutrophils % 68.2 %; Nucleated Red Blood Cells % 0 %; Platelet Count 223 10^3/cmm (157-399); Red Blood Count 3.11 10^6/uL (3.85-5.65); Red Cell Distribution Width 17.1 % (12.1-15.1); White Blood Count 7.71 10^3/uL (3.29-11.43)
[2023-08-01 03:16] LABS: Anion Gap 12.8 (5-19); Blood Urea Nitrogen 23 mg/dL (8-23); Calcium 8.8 mg/dL (8.5-10.5); Carbon Dioxide 36 mmol/L (22-29); Chloride 95 mmol/L (98-107); Glucose 151 mg/dL (65-115); Magnesium 1.6 mg/dL (1.7-2.3); Osmolality Calculated 297 mOsm/kg (285-295); Potassium 3.8 mmol/L (3.5-5.1); Sodium 140 mmol/L (136-145)
[2023-08-01] MEDS: piperacillin-tazobactam 3.375 GM in sodium chloride 0.9% (plus) 50 ML IV ×3 (04:57→20:07)
[2023-08-01] MEDS: pyridostigmine 60 mg Tablet PO (04:59)
[2023-08-01] MEDS: levothyroxine 150 mcg Tablet PO (04:59)
[2023-08-01] MEDS: duloxetine 60 mg Capsule PO (04:59)
[2023-08-01 06:30] LABS: Glucose Point of Care 199 mg/dL (70-110)
[2023-08-01] MEDS: ipratropium-albuterol 3 mL Neb INHALATION ×4 (07:35→20:30)
--- NOTE | 2023-08-01 08:30 | P.PN_ITS ---
Subjective 2 Subjective: seen today no acute events overnight all sent out tests are still pending patient feeling better Vitals/I&O/Wt Last Vital Signs Temp 98.0 F 08/01/23 08:00 Pulse 88 08/01/23 08:00 Resp 16 08/01/23 08:00 BP 157/73 08/01/23 08:00 Pulse Ox 100 08/01/23 08:00 O2 Del Method Nasal Cannula 08/01/23 08:00 O2 Flow Rate 3.5 08/01/23 07:38 07/31/23 08/01/23 08/01/23 22:59 06:59 14:59 Intake Total 580 / 870 500 / 1370 Output Total 500 / 500 650 / 1150 Balance 80 / 370 -150 / 220 Weight last 48 hrs Weight 109.571 kg Weight 108.068 kg Physical Exam 2 Narrative: General: No acute distress, AO x3, sitting up in bed. HEENT: PERRLA, pupils bilaterally equal and reactive, pallors not present Chest: Clear to auscultation today, decreased bilateral air entry absent at bases CVS: S1-S2 regular, no murmurs, no tachycardia, no gallops, no rubs Abdomen: Soft, nontender, no organomegaly, bowel sounds present Neuro: No focal deficits, no facial deformity, AO x3, ext: 2+ bilateral lower extremity edema Urinary Catheter Management: Manzanares Latex: Cath Placed During This Visit: yes Reason for Continuing Indwelling Catheter: Other Urinary Catheter Date of Insertion: 07/27/23 Urinary Catheter Time of Insertion: 19:45 Data 08/01/23 02:30 08/01/23 14:52 Micro: Microbiology 07/30/23 11:20 Gram Stain - Final Sputum - Expectorated Sputum Sputum Culture - Preliminary A&P Assessment and plan (1) COPD (chronic obstructive pulmonary disease): Qualifiers: COPD type: unspecified COPD Qualified Code(s): J44.9 - Chronic obstructive pulmonary disease, unspecified (2) Acute and chronic respiratory failure with hypoxia: (3) PNA (pneumonia): (4) Pleural effusion: (5) CHF (congestive heart failure): acute on chronic with preserved EF Plan 72-year-old lady with COPD, CHF, currently admitted to the hospital with acute on chronic hypoxic respiratory failure with multiple recent hospital admissions for the same reason.Recent chest x-rays and CAT scans have shows bilateral infiltrates which may represent pneumonic infiltrates versus pulmonary edema. pending sputum culture evaluation ongoing for opportunistic pneumonia while remaining on emepric zosyn and vancomycin. SHe has had levaquin as outpatient recently, less likely atypical infection. AFB smear negative x 1 ,pending 2 ; MTB PCR pending pending serum beta glucan, serum Aspergillus galactomannan, PCP PCR, MTB PCR and AFB culture x3. Prior QuantiFERON screening from 2019 was negative. pending more recent QuantiFERON now. Previous PPD positive per patient these were reportedly determined to be false positives pending histoplasma and Coccidioides serology. Patient denies any history of recent travel. She has noted to have bilateral pleural effusions additionally, thoracentesis was attempted on her most recent admission for diagnostic purposes, however there was insufficient fluid to proceed. LE edema 2+. .. b-d glucan weakly positive. Continue patient on IV Bactrim every 8 hours. Watch for fluid overload. Stop lasix today Give diamox 500 mg x1 dose Monitor BMP and magnesium every 12 hours. Replete as needed. negative respiratory viral panel. Echocardiogram from July 01, 2023 showed normal left ventricular size systolic function and wall thickness without regional wall motion abnormalities. LVEF of 65%. Aortic valve sclerosis without stenosis. Continue home medications including metoprolol, lisinopril duoneb q6h, budesonide q12h Flutter valve/spirometer at bedside CTA PE negative for PE BP better today after incraesing hydralazine, continue to monitor and uptitrate as needed Attestations 2 Medical Necessity Statement*: iv diuresis, pending evaluation of possible opportunitic pneumonia Diagnoses Chronic obstructive pulmonary disease, unspecified COPD type J44.9 COPD type: unspecified COPD Acute and chronic respiratory failure with hypoxia J96.21 PNA (pneumonia) J18.9 Pleural effusion J90 CHF (congestive heart failure) I50.9
[2023-08-01] MEDS: insulin lispro 100 unit/1 mL SUBCUT ×3 (08:40→17:15)
[2023-08-01] MEDS: HYDROcodone-acetaminophen 7.5-325 mg Tablet 1 TAB PO ×3 (08:41→20:08)
[2023-08-01] MEDS: lidocaine 5% Patch 1 PATCH TOPICAL (08:41)
[2023-08-01] MEDS: metoprolol tartrate 50 mg Tablet 75 MG PO ×2 (08:41→20:16)
[2023-08-01] MEDS: pantoprazole DR 40 mg Tablet PO (08:42)
[2023-08-01] MEDS: digoxin 125 mcg Tablet PO (08:42)
[2023-08-01] MEDS: hyDRALAzine 25 mg Tablet PO ×3 (08:43→20:08)
[2023-08-01 12:08] LABS: Glucose Point of Care 220 mg/dL (70-110)
[2023-08-01 15:30] LABS: Blood Urea Nitrogen 24 mg/dL (8-23); Calcium 8.7 mg/dL (8.5-10.5); Carbon Dioxide 31 mmol/L (22-29); Chloride 94 mmol/L (98-107); Glucose 158 mg/dL (65-115); Magnesium 1.5 mg/dL (1.7-2.3); Osmolality Calculated 295 mOsm/kg (285-295); Sodium 139 mmol/L (136-145)
[2023-08-01 15:35] LABS: Anion Gap 17.8 (5-19); Potassium 3.8 mmol/L (3.5-5.1)
[2023-08-01 16:46] LABS: Glucose Point of Care 233 mg/dL (70-110)
[2023-08-01 18:23] LABS: Aspergillus AG,EIA,Serum NOT DETECTED; Aspergillus Galactomannan Inde <0.50
[2023-08-01] MEDS: atorvastatin 40 mg Tablet 80 MG PO (20:08)
[2023-08-01] MEDS: enoxaparin 40 mg/0.4 mL Syringe SUBCUT (20:08)
[2023-08-01 22:06] LABS: Glucose Point of Care 137 mg/dL (70-110)
[2023-08-02] VITALS (93 sets, daily range): BP systolic 61–178; BP diastolic 43–91; PULSE 67–115; RESP 12–21; TEMP 36.4–36.7; O2SAT 83–100
[2023-08-02] MEDS: FUROsemide 10 mg/mL SDV 4mL 40 MG IVP ×2 (01:07→15:21)
[2023-08-02 03:09] LABS: Anion Gap 12.6 (5-19); Blood Urea Nitrogen 23 mg/dL (8-23); Calcium 8.8 mg/dL (8.5-10.5); Carbon Dioxide 37 mmol/L (22-29); Chloride 90 mmol/L (98-107); Glucose 166 mg/dL (65-115); Magnesium 1.4 mg/dL (1.7-2.3); Osmolality Calculated 289 mOsm/kg (285-295); Potassium 3.6 mmol/L (3.5-5.1); Sodium 136 mmol/L (136-145)
[2023-08-02] MEDS: piperacillin-tazobactam 3.375 GM in sodium chloride 0.9% (plus) 50 ML IV ×3 (04:33→20:03)
[2023-08-02 05:12] LABS: Basophils % 0.6 %; Eosinophils # 0.1 10^3/uL (0.0-0.8); Eosinophils % 0.8 %; Hematocrit 27.6 % (36-47); Lymphocytes % 14.6 %; Mean Corpuscular HGB Conc 29.3 g/dL (30-55); Mean Corpuscular Hemoglobin 26.6 pg (27-33); Mean Corpuscular Volume 90.5 fl (85-98); Monocytes # 0.7 10^3/uL (0.2-0.9); Monocytes % 9.4 %; Neutrophils # 5.29 10^3/uL (1.8-7.7); Nucleated Red Blood Cells % 0 %; Platelet Count 216 10^3/cmm (157-399); Red Blood Count 3.05 10^6/uL (3.85-5.65); Red Cell Distribution Width 17.1 % (12.1-15.1); White Blood Count 7.14 10^3/uL (3.29-11.43)
[2023-08-02 05:40] LABS: Anion Gap 15.7 (5-19); Blood Urea Nitrogen 23 mg/dL (8-23); Calcium 8.7 mg/dL (8.5-10.5); Carbon Dioxide 33 mmol/L (22-29); Chloride 93 mmol/L (98-107); Glucose 135 mg/dL (65-115); Magnesium 1.4 mg/dL (1.7-2.3); Osmolality Calculated 292 mOsm/kg (285-295); Potassium 3.7 mmol/L (3.5-5.1); Sodium 138 mmol/L (136-145)
[2023-08-02] MEDS: levothyroxine 150 mcg Tablet PO (05:42)
[2023-08-02] MEDS: duloxetine 60 mg Capsule PO (05:42)
[2023-08-02] MEDS: pyridostigmine 60 mg Tablet PO (05:42)
--- NOTE | 2023-08-02 06:33 | PC.NURSE ---
pt events of the night -pt would not wear cpap pt states d/t it not working properly. this nurse along with others attempted multiple times to alleviate the issue. -pt sob during the night so o2 turned up to 6L while sleeping since the cpap wasn't working properly. -lab called about sputum collection; pt given cup for sample with label on it. - interdry placed under both pt breasts. - pt called several times throughout the night for staff to get move her bed, get her a drink, place her pillow.. ect.
[2023-08-02 06:58] LABS: Glucose Point of Care 221 mg/dL (70-110)
[2023-08-02] MEDS: ipratropium-albuterol 3 mL Neb INHALATION ×4 (08:15→19:53)
--- NOTE | 2023-08-02 08:34 | XR_ITS ---
WS: [id number] Portable AP upright chest, 08/02/2023 Clinical Data: sob, increase O2 needs Comparison: Portable chest, 07/30/2023. Findings: There is a right internal jugular venous catheter which ends in the superior vena cava. The re is an endotracheal tube which ends above the humberto. The bilateral patchy opacities consistent wit h pulmonary edema remain the same. There are probable bilateral effusions. The heart is enlarged. No pneumothorax is seen. The aortic arch shows calcification. Monitor leads are on the chest wall. Impression: 1. No change in probable pulmonary edema and cardiomegaly. 2. No change in bilateral pleural effusions. 3. Endotracheal tube and right internal jugular venous catheter in good position.
[2023-08-02 08:53] LABS: Alveolar-Arterial Oxygen Gradi 63.1 mmHg (5-10); Arterial Blood Gas Hematocrit 27.6 % (37-47); Base Excess ABG 2.5 mmol/L (-2.0-2.0); Blood Gas Allen Test Pos; Blood Gas Operator Identificat WALCI; Blood Gas Sample Site Radial, left; Blood Gas Sample Type Arterial; Carboxyhemoglobin 1.9 %THgb (0.4-20.1); HCO3 ABG 32.2 mmol/L (22-26); HGB O2 Sat 95.4 % (95-100); Ionized Calcium Level - ABG 1.2 mmol/L (1.1-1.4); Methemoglobin 0.9 % (0.4-1.5); Oxygen Device BIPAP; Oxygen Saturation ABG 98.2; PO2 FiO2 Ratio Arterial Blood 0; Potassium Level - ABG 3.5 mmol/L (3.5-5.0)
[2023-08-02 08:54] LABS: ABG PCO2 85.9 mmHg (35-45); ABG PH Result 7.18 (7.35-7.45)
[2023-08-02 09:09] LABS: Glucose Point of Care 363 mg/dL (70-110)
--- NOTE | 2023-08-02 09:22 | P.PN_ITS ---
Subjective 2 Subjective: called by RN this am that patient is requiring 15L NC earlier this morning she was fine and stating she is feeling ok pt did have breakfast this am, unsure of aspiration event, Lasix 60 IVx 1, chest xray and ABG was ordered, bipap was placed As ABG was being attempted, patient became more and more somnolent, did not lose pulse, due to her not following commands and being unable to protect her aiwray, decision made to intubate. ABG showed 7. Dr. Renee intubated patient who was present at bedside Propofol, fentanyl ordered, patient transferred to ICU Central line placed by Dr. Renee Patient was hypotensive during line placement, required levophed gtt and 1 mg epinephrine Updated patient's son over the phone and left the a voice mail Sputum gm stain culture, blood culture, ct chest, cbc, cmp ordered STAT Patient stabalized Vitals/I&O/Wt Last Vital Signs Temp 98.0 F 08/02/23 07:49 Pulse 104 H 08/02/23 08:20 Resp 20 H 08/02/23 08:20 BP 157/83 08/02/23 07:49 Pulse Ox 88 L 08/02/23 08:20 O2 Del Method Nasal Cannula 08/02/23 08:20 O2 Flow Rate 6 08/02/23 08:20 FiO2 100 08/02/23 08:30 08/01/23 08/02/23 08/02/23 22:59 06:59 14:59 Intake Total 620 / 1720 500 / 2220 240 / 240 Output Total 1600 / 1600 575 / 2175 Balance -980 / 120 -75 / 45 240 / 240 Weight last 48 hrs Weight 109.571 kg Physical Exam 2 Narrative: seen during rapid response not following commands, obtunded, pulse present lungs b/l ronchi present normal s1, s2 abdomen obese rounded, romero in place 2+ edema b/l LE Urinary Catheter Management: Romero Latex: Cath Placed During This Visit: yes Reason for Continuing Indwelling Catheter: Acute Urinary Retention or Obstruction Urinary Catheter Date of Insertion: 07/27/23 Urinary Catheter Time of Insertion: 19:45 Data 08/02/23 10:10 08/02/23 10:10 Micro: Microbiology 07/30/23 11:20 Mycobacterial Smear - Preliminary Sputum - Expectorated Sputum 07/30/23 11:20 Gram Stain - Final Sputum - Expectorated Sputum Sputum Culture - Final A&P Assessment and plan (1) COPD (chronic obstructive pulmonary disease): Qualifiers: COPD type: unspecified COPD Qualified Code(s): J44.9 - Chronic obstructive pulmonary disease, unspecified (2) Acute and chronic respiratory failure with hypoxia: (3) PNA (pneumonia): (4) Pleural effusion: (5) CHF (congestive heart failure): acute on chronic with preserved EF (6) Ventilator dependence: (7) Respiratory failure: (8) Acute respiratory failure with hypoxia and hypercarbia: (9) Respiratory acidosis: Plan 72-year-old lady with COPD, CHF, currently admitted to the hospital with acute on chronic hypoxic respiratory failure with multiple recent hospital admissions for the same reason. Recent chest x-rays and CAT scans have shows bilateral infiltrates which may represent pneumonic infiltrates versus pulmonary edema. pending sputum culture evaluation ongoing for opportunistic pneumonia while remaining on emepric zosyn. SHe has had levaquin as outpatient recently, less likely atypical infection. AFB smear negative x 1 ,pending 2 ; MTB PCR pending pending serum beta glucan, serum Aspergillus galactomannan, PCP PCR, MTB PCR and AFB culture x3. Prior QuantiFERON screening from 2019 was negative. pending more recent QuantiFERON now. Previous PPD positive per patient these were reportedly determined to be false positives pending histoplasma and Coccidioides serology. Patient denies any history of recent travel. She has noted to have bilateral pleural effusions additionally, thoracentesis was attempted on her most recent admission for diagnostic purposes, however there was insufficient fluid to proceed. b-d glucan weakly positive. negative respiratory viral panel. Echocardiogram from July 01, 2023 showed normal left ventricular size systolic function and wall thickness without regional wall motion abnormalities. LVEF of 65%. Aortic valve sclerosis without stenosis. Continue home medications including metoprolol, lisinopril duoneb q6h, budesonide q12h Flutter valve/spirometer at bedside CTA PE negative for PE BP better today after incraesing hydralazine, continue to monitor and uptitrate as needed #Vent dependent repiratory failure #Acute hypercabic resp failure #Chronic hypoxic resp failure #Acute on chronic diasotlic HF #Hx of multiple admissions #Immunocompromised, on adalimumab, methrotrexate outpatient, - Continue patient on IV Bactrim every 8 hours. Watch for fluid overload. Monitor BMP and magnesium every 12 hours. Replete as needed. COntinue lasix 40 IV BID - Continue home medications including metoprolol, lisinopril duoneb q6h, budesonide q12h Flutter valve/spirometer at bedside CTA PE negative for PE repeat ct chest today check labs cbc cmp, mag abg, sputum culture gm stain, blood culture wean of levophed as able to , add vasopressin if needed propofol + fentanyl for sedation and pain vent protocol recheck ABG as per protocol consult pulmnology Updated son on phone Full Code DVT PPX: lovenox GI ppx: protonix 40 IV daily Attestations 2 Medical Necessity Statement*: intubated. Coding Level of Care Code Critical Care >/= 30 minutes Critical care time (in minutes): 45 The high probability of a clinically significant, sudden or life threatening deterioration, as referenced in this documentation, required my full and direct attention, intervention and personal management. The critical care time shown is in addition to time spent performing any reported separately billable procedures and includes the following: [x] Data and vital sign review and interpretation [x ] Patient assessment, examination and intervention [x] Medication orders and management [x] Patient/Family updates as able [x] Care Coordination and Documentation. Diagnoses Chronic obstructive pulmonary disease, unspecified COPD type J44.9 COPD type: unspecified COPD Acute and chronic respiratory failure with hypoxia J96.21 PNA (pneumonia) J18.9 Pleural effusion J90 CHF (congestive heart failure) I50.9 Ventilator dependence Z99.11 Respiratory failure J96.90 Acute respiratory failure with hypoxia and hypercarbia J96.01; J96.02 Respiratory acidosis E87.29
--- NOTE | 2023-08-02 09:43 | PC.NURSE ---
LMOM on son and phone # to give us call so we are able to update status.
[2023-08-02 10:25] LABS: Basophils % 0.2 %; Eosinophils % 0.1 %; Hematocrit 26.7 % (36-47); Lymphocytes # 0.5 10^3/uL (0.8-4.8); Mean Corpuscular HGB Conc 30.3 g/dL (30-55); Mean Corpuscular Hemoglobin 27.1 pg (27-33); Mean Corpuscular Volume 89.3 fl (85-98); Mean Platelet Volume 9.4 fL (7.4-10.4); Monocytes # 0.6 10^3/uL (0.2-0.9); Monocytes % 6.6 %; Neutrophils # 8.38 10^3/uL (1.8-7.7); Neutrophils % 87.5 %; Nucleated Red Blood Cells % 0 %; Platelet Count 242 10^3/cmm (157-399); Red Blood Count 2.99 10^6/uL (3.85-5.65); Red Cell Distribution Width 16.9 % (12.1-15.1); White Blood Count 9.58 10^3/uL (3.29-11.43)
[2023-08-02 10:40] LABS: D Dimer 1.05 ug/mLFEU (0-0.59)
[2023-08-02 10:42] LABS: Alanine Aminotransferase 15 U/L (0-33); Albumin Level 3.2 g/dL (3.5-5.2); Alkaline Phosphatase 89 U/L (35-105); Anion Gap 16.6 (5-19); Aspartate Amino Transferase 23 U/L (0-32); Blood Urea Nitrogen 24 mg/dL (8-23); Calcium 8.7 mg/dL (8.5-10.5); Carbon Dioxide 34 mmol/L (22-29); Chloride 88 mmol/L (98-107); Globulin 2.8 g/dL (1.3-4.6); Glucose 270 mg/dL (65-115); Osmolality Calculated 294 mOsm/kg (285-295); Potassium 3.6 mmol/L (3.5-5.1); Sodium 135 mmol/L (136-145); Total Bilirubin 0.3 mg/dL (0.15-1.2)
[2023-08-02 11:37] LABS: Glucose Point of Care 247 mg/dL (70-110)
[2023-08-02] MEDS: digoxin 125 mcg Tablet 62.5 MCG PO (11:39)
[2023-08-02] MEDS: insulin lispro 100 unit/1 mL SUBCUT ×2 (11:40→16:41)
--- NOTE | 2023-08-02 11:40 | ECG_ITS ---
[facility] Test Date: 2023-08-02 Pat Name: Myesha Parker Department: Room: ICU03 Gender: Female [employer]: : [id number] Requested By: Adriane Terry Order Number: [id number] Wilbur MD: Min Tipton M.D. Measurements Intervals [place] Rate: 109 P: 0 [place]: 0 QRS: -72 QRSD: 149 T: 95 QT: 371 QTc: 502 Interpretive Statements ATRIAL FIBRILLATION WITH RAPID VENTRICULAR RESPONSE WITH ABERRANT CONDUCTION OR VENTRICULAR PREMATURE COMPLEXES RIGHT BUNDLE BRANCH BLOCK [120+ ms QRS DURATION, UPRIGHT V1, 40+ ms S IN I/aVL/V4/V5/V6] LEFT ANTERIOR FASCICULAR BLOCK [QRS AXIS <= -45, QR IN I, RS IN II] MINIMAL VOLTAGE CRITERIA FOR LVH, CONSIDER NORMAL VARIANT [MEETS CRITERIA IN ONE OF: R(aVL), S(V1), R(V5), R(V5/V6)+S(V1)] POSSIBLE ANTERIOR MYOCARDIAL INFARCTION , OF INDETERMINATE AGE [30 ms Q WAVE IN V3/V4, OR R < 0.2 mV IN V4] ST DEPRESSION, CONSIDER SUBENDOCARDIAL INJURY [0.1+ mV ST DEPRESSION] Compared to ECG 07/30/2023 20:22:37 No significant changes Electronically Signed On 08-02-2023 14:38:01 FIELD REPORTER by Min Tipton M.D. [email or web address]
[2023-08-02] MEDS: fentaNYL 1,000 MCG/100 ML BAG 10 MCG IV ×2 (11:58→18:49)
[2023-08-02] MEDS: propofol 1,000 MG/100 ML INJ 29.58 MG IV ×5 (11:58→23:53)
[2023-08-02] MEDS: norepinephrine 4 MG/250 ML BAG 30 MG IV (11:59)
--- NOTE | 2023-08-02 12:03 | XR_ITS ---
WS: [id number] Portable AP upright chest, 08/02/2023, 1210 hours Clinical Data: OG placement Comparison: Portable chest, 08/02/2023, 1007 hours Findings: The nasogastric tube has been inserted and appears to end in the fundus of the stomach. Impression: Satisfactory insertion of nasogastric tube.
[2023-08-02 12:05] LABS: ABG PCO2 43.7 mmHg (35-45); ABG PH Result 7.56 (7.35-7.45); Alveolar-Arterial Oxygen Gradi 54.1 mmHg (5-10); Arterial Blood Gas Hematocrit 25.2 % (37-47); Base Excess ABG 15.2 mmol/L (-2.0-2.0); Blood Gas Allen Test Pos; Blood Gas Operator Identificat GD; Blood Gas Sample Site Radial, left; Blood Gas Sample Type Arterial; Blood Gas Tidal Volume 0.43; Carboxyhemoglobin 1.1 %THgb (0.4-20.1); HCO3 ABG 38.9 mmol/L (22-26); HGB O2 Sat 96.8 % (95-100); Ionized Calcium Level - ABG 1.1 mmol/L (1.1-1.4); Methemoglobin 1.3 % (0.4-1.5); Oxygen Device VENT; Oxygen Saturation ABG 99.1; PO2 FiO2 Ratio Arterial Blood 0; Potassium Level - ABG 3.3 mmol/L (3.5-5.0); Total Hemoglobin 8.2 g/dL (12-16)
[2023-08-02 12:15] LABS: Quantiferon Mitogen 8.86 IU/mL; Quantiferon Nil 0.04 IU/mL; Quantiferon Plus TB2 <0.00 IU/mL; Quantiferon TB Gold NEGATIVE (NEGATIVE)
--- NOTE | 2023-08-02 12:23 | PC.OT ---
OT tx withheld due to rapid response called on pt and she is now in ICU on vent. OTR to check on pt status tomorrow.
--- NOTE | 2023-08-02 13:35 | PC.NURSE ---
0915 rapid responsed on med surg, intubated, and brought to ICU 3. Patient placed on fentanyl drip, propofol drip, and Norepinephrine drip. Central line placed in ICU [address]enee. Levophed was rapidly uptitrated to 18 mcg and patient was still hypotensive 60/40s, verbal order to give 10 mcg IVP epinephrine once.
--- NOTE | 2023-08-02 14:29 | PC.NURSE ---
Son updated on patient's condition and location.
[2023-08-02 14:50] LABS: ABG PCO2 47.7 mmHg (35-45); ABG PH Result 7.53 (7.35-7.45); Alveolar-Arterial Oxygen Gradi 25.9 mmHg (5-10); Arterial Blood Gas Hematocrit 22.2 % (37-47); Base Excess ABG 15.5 mmol/L (-2.0-2.0); Blood Gas Operator Identificat GD; Blood Gas Sample Site Brachial, right; Blood Gas Sample Type Arterial; Carboxyhemoglobin 2.1 %THgb (0.4-20.1); HCO3 ABG 39.8 mmol/L (22-26); HGB O2 Sat 95.9 % (95-100); Ionized Calcium Level - ABG 1.1 mmol/L (1.1-1.4); Methemoglobin 1.1 % (0.4-1.5); Oxygen Device VENT; Oxygen Saturation ABG 99.1; PO2 ABG 96.3 mmHg (80.0-100.0); PO2 FiO2 Ratio Arterial Blood 0; Potassium Level - ABG 3.1 mmol/L (3.5-5.0); Total Hemoglobin 7.2 g/dL (12-16)
--- NOTE | 2023-08-02 16:18 | PM.CCNAC ---
Critical Care Event Note The high probability of a clinically significant, sudden or life threatening deterioration of the patient's [] system(s) required my full and direct attention, intervention and personal management. The critical care time is as shown. This time is in addition to time spent performing any reported procedures but includes the following: [x] Data and vital sign review and interpretation [x] Patient assessment, examination and intervention [x] Documentation [x] Medication orders and management Critical Care Time Code activated: No Critical Care Time (min): 35 Additional information about critical care time: Critical Care Event Note The high probability of a clinically significant, sudden or life threatening deterioration of the patient's [] system(s) required my full and direct attention, intervention and personal management. The critical care time is as shown. This time is in addition to time spent performing any reported procedures but includes the following: [x] Data and vital sign review and interpretation [x] Patient assessment, examination and intervention [x] Documentation [x] Medication orders and management Critical Care Time Code activated: No Critical Care Time (min): 35 Additional information about critical care time: Rapid response called due to concerns for acute respiratory failure -I responded to rapid response on patient for acute respiratory failure, -Patient was seen, she does not awaken to sternal rub, blood sugar 336 ? She was placed on 100% BiPAP, she has 1+ pitting edema, she has been given Lasix this morning, diffuse crackles on exam, no wheezing, ? She does awaken to sternal rub at times, does answer a few questions, but remains encephalopathic ? She was monitored on 100% BiPAP, on medical floors, there was concern for possible acute flash pulmonary edema and/or possible aspiration, as nursing staff tells me that she was having breakfast, and after breakfast she was doing well and she suddenly became short of breath and nonresponsive, ? No facial droop that I can discern, she does say a few words I cannot discern any slurring of her words she does have spontaneous motor movement of upper and lower extremities,, ? On examination, she is not alert to person, not to place, not to time, does not follow commands, cardiovascular S1, S2, tachycardic heart rates in the 120s, does not look like it is A-fib, looks sinus tachycardia, lungs poor respiratory effort in all lung hatch, diminished lung sounds, abdomen soft, distended, good bowel sounds, does have 1+ pitting edema ? Due to acute hypoxic respiratory failure 100% BiPAP, patient's encephalopathy decision was made to pursue intubation, GCS score was 8, ? Patient was intubated on general medical floors, moved to the intensive care unit, started on propofol, fentanyl for sedation, she did have transient hypotension, started on Levophed, given 1 mg of epinephrine push, central line was placed ? Chest x-ray confirmed placement of ET tube, and placement of central line, pressor requirements decreased down to 6 of Levophed Coding Level of Care Code Critical Care
--- NOTE | 2023-08-02 16:19 | P.ANES_ITS ---
Anesthesia Procedures Procedure/Date: 08/02/23 Central Venous Insert: Time Out Performed: Yes Consent: emergency procedure Central Line: New Anesthesia monitors: pulse oximetry, EKG, BP cuff and ox ygen Vein cannulated: right internal jugular Ultrasound used: to identify patency to vessel and to visualize needle entry to vein Post procedure: Obtain Chest X-Ray Additional Comments: Needle entry visualized right internal jugular vein, drawback of nonpulsatile, dark red blood, guidewire threaded over, with ultrasound confirming placement of guidewire in the right internal jugular vein, Toller procedure well, chest x- ray, confirms position
--- NOTE | 2023-08-02 16:20 | P.ANES_ITS ---
Anesthesia Procedures Procedure/Date: 08/02/23 Intubation: Time Out Performed: Yes Consent: emergency procedure Sedative (amount): etomidate Paralytic (amount): succinylcholine Laryn goscope: fiber optic video scope Assist Device Used: fiber optic device ET Tube Size: 7 ET Tube Uncuffed: No Tube Secured Depth (cm): 24 Tube Secured Location: teeth Tube Placement Confirmation: visualized tube passing through cords, equal breath sounds bilaterally, no breath sounds over epigastrium and color change noted Patient Tolerated Procedure: no complications Intubation Complications: none Additional Comments: Using's fiberoptic scope, confirm position of endotracheal tube, through vocal cords, and an Endo vocal cords, tolerated procedure well, x-ray confirms position
[2023-08-02 16:42] LABS: Glucose Point of Care 211 mg/dL (70-110)
[2023-08-02 16:49] LABS: Anion Gap 10.9 (5-19); Blood Urea Nitrogen 22 mg/dL (8-23); Calcium 8.6 mg/dL (8.5-10.5); Carbon Dioxide 38 mmol/L (22-29); Chloride 90 mmol/L (98-107); Glucose 207 mg/dL (65-115); Magnesium 1.4 mg/dL (1.7-2.3); Osmolality Calculated 291 mOsm/kg (285-295); Sodium 136 mmol/L (136-145)
[2023-08-02 16:52] LABS: Potassium 2.9 mmol/L (3.5-5.1)
--- NOTE | 2023-08-02 16:56 | P.CONIM_ITS ---
Providers/Reason For Consult 2 Consulting Physician/Specialty*: Javed Christiansen MD, FCCP/pulmonary critical care Reason for Consult*: Hypercapnic respiratory failure-intubated and placed on ventilator Requesting Physician: Adriane Terry MD Attending Physician: Adriane Terry MD Primary Care Provider: Davion Griggs MD History of Present Illness History of Present Illness Myesha Parker is a 72 year old female with history of diastolic CHF, seronegative RA , on Humira and methotrexate , COPD, uses 2 to 3 L of oxygen at baseline and Bipap at home, A fib not on a/c due to recurrent falls,who has had multiple hospital admissions here recently for acute on chronic dyspnea, shortness of breath, hypoxic hypercapnic respiratory failures. Review of records shows that she has had admission for this reason between June 16 to June 19, then 06/30 to 07/03 in addition to having intermittent ER visits for the same reason. She has been noted to have patchy left bilateral groundglass opacities and has been treated for COPD exacerbation and CHF exacerbation on these past admissions. On 07/25/2023-she presents to the emergency room today with complaints of increased dyspnea and shortness of breath since her last discharge on 07/03/2023. She is also noted to have an increased oxygen requirement at 5 L/min from a baseline of 2 to 3 L/min. She was noted to have increased weakness, fatigue. No hemoptysis. Reports increased cough and some expectoration. CTA during admission ruled out pulmonary embolism; showed small to moderate right and small left pleural effusion unchanged since 07/01/2023. Compressive atelectasis in lung bases. She was covered empirically with Zosyn and vancomycin-workup so far negative for respiratory viral panel, COVID-19, Given her immunosuppression for rheumatoid arthritis-extensive workup was sent So for beta D glucan positive-PCP PCR, histoplasma antigen, coccidioidomycosis- are pending; she was started on IV Bactrim on 07/31/2023 She is in airborne isolation-sputum for MTB-is pending; TB QuantiFERON is negative Patient oxygen requirements increased to 15 L nasal cannula; as per hospitalist evaluation-earlier this morning patient was doing fine; she had a breakfast and after some time she desaturated and ABG showed 7.1 8/85/129/32-placed on BiPAP but she became more and more somnolent-she was intubated for airway protection. Patient was hypotensive and hence a central line was placed and started on Levophed. Pulmonary critical care consult requested for hypoxic and hypercapnic respiratory failure in patient with recurrent admissions due to respiratory issues Patient seen at bedside-she is intubated and sedated. Currently she is on fentanyl, propofol, Levophed 6 mcg/hour Spoke to patient's at bedside-reported that patient was a former smoker and was diagnosed with COPD previously, she has diastolic heart failure and had multiple admissions and was also intubated once previously -Patient mentioned that she had a stroke recently with no significant residual weakness Review of Systems 2 General: Reports: 10 or more systems reviewed and unremarkable except in HPI and below Medications/Allergies Home Medications Medication Instructions Recorded Confirmed Last Taken Type acetaminophen 650 mg 650 mg PO Q4H PRN Pain 10/12/19 07/25/23 11/04/21 History tablet,extended release (Arthritis Pain Reliever) cholecalciferol (vitamin D3) 25 1,000 unit PO QAM 10/12/19 07/25/23 07/25/23 History mcg (1,000 unit) tablet (Vitamin D3) nitroglycerin 0.4 mg sublingual 0.4 mg sublingual Q5M PRN Chest 02/08/21 07/25/23 Unknown Rx tablet (Nitrostat) Pain #30 tabs chlorpheniramine maleate 4 mg See Rx Instructions .Route .COMPLEX 03/16/21 07/25/23 07/25/23 History tablet (ChlorTabs) cyanocobalamin (vitamin B-12) 500 500 mcg PO QAM 03/16/21 07/25/23 07/25/23 History mcg tablet (Vitamin B-12) diphenhydramine HCl 25 mg capsule See Rx Instructions .Route .COMPLEX 03/16/21 07/25/23 06/29/23 History (Benadryl) docusate sodium 250 mg capsule 250 mg PO QAM 03/16/21 07/25/23 07/25/23 History (Stool Softener) ferrous gluconate 324 mg (37.5 mg 324 mg PO DAILY@12 05/06/21 07/25/23 07/24/23 History iron) tablet calcium carbonate 600 mg calcium 600 mg PO DAILY@12 06/27/21 07/25/23 07/24/23 History (1,500 mg) tablet (Calcium) levothyroxine 150 mcg tablet 150 mcg PO QAM 06/27/21 07/25/23 07/25/23 History (Euthyrox) pantoprazole 40 mg tablet,delayed 40 mg PO BID 09/13/21 07/25/23 07/25/23 History release hydralazine 10 mg tablet 10 mg PO TID #270 tabs 04/03/23 07/25/23 07/25/23 06:30 Rx lisinopril 40 mg tablet 40 mg PO QPM #30 tabs 04/03/23 07/25/23 07/24/23 Rx magnesium L-lactate 84 mg 84 mg PO BID #180 tabs 04/03/23 07/25/23 07/25/23 Rx tablet,extended release pyridostigmine bromide 60 mg tablet 60 mg PO QAM 04/17/23 07/25/23 1 Week Ago History ~07/18/23 tramadol 50 mg tablet 50 mg PO TID 04/17/23 07/25/23 1 Week Ago History ~07/18/23 methotrexate sodium 2.5 mg tablet 15 mg (6 x 2.5 mg) PO Q7D #90 tabs 04/24/23 07/25/23 2 Weeks Ago Rx ~07/11/23 glucose 4 gram chewable tablet 4 g PO PRN PRN Hypoglycemia 06/17/23 07/25/23 Unknown History metoprolol succinate 100 mg 100 mg PO QAM 06/17/23 07/25/23 07/25/23 History tablet,extended release 24 hr fluticasone fur. 200 mcg-umeclid 1 inh inhalation DAILY #28 ea 06/20/23 07/25/23 06/30/23 Rx 62.5 mcg-vilant 25 mcg inhalat.powder (Trelegy Ellipta) adalimumab 40 mg/0.8 mL See Rx Instructions .Route 06/26/23 07/25/23 07/21/23 Rx subcutaneous pen kit (Humira Pen) .COMPLEX #2 ea atorvastatin 80 mg tablet 80 mg PO BEDTIME 07/25/23 07/25/23 07/24/23 History digoxin 125 mcg (0.125 mg) tablet See Rx Instructions .Route .COMPLEX 07/25/23 07/25/23 07/25/23 History 62.5mcg duloxetine 60 mg capsule,delayed 60 mg PO QAM 07/25/23 07/25/23 07/25/23 History release folic acid 1 mg tablet 1 mg PO QAM 07/25/23 07/25/23 07/25/23 History furosemide 20 mg tablet 20 mg PO QAM 07/25/23 07/25/23 07/25/23 History hydrocodone 7.5 mg-acetaminophen 1 tab PO TID 07/25/23 07/25/23 07/25/23 History 325 mg tablet insulin lispro 100 unit/mL See Rx Instructions .Route .COMPLEX 07/25/23 07/25/23 Unknown History subcutaneous pen levofloxacin 750 mg tablet 750 mg PO DAILY@17 07/25/23 07/25/23 07/24/23 History omega-3 fatty acids 1,000 mg 2,000 mg PO BEDTIME 07/25/23 07/25/23 07/24/23 History capsule potassium chloride 20 mEq 20 meq PO QAM 07/25/23 07/25/23 07/25/23 History tablet,extended release pyridoxine (vitamin B6) 500 mg 500 mg PO QAM 07/25/23 07/25/23 07/25/23 History tablet riboflavin (vitamin B2) 100 mg 100 mg PO QAM 07/25/23 07/25/23 07/25/23 History tablet (Vitamin B-2) zinc acetate 50 mg (zinc) capsule 50 mg PO DAILY@12 07/25/23 07/25/23 07/24/23 History Allergies Allergy/AdvReac Type Severity Reaction Status Date / Time adhesive tape Allergy rash Verified 06/30/23 17:49 cinnamon Allergy sinus Verified 06/30/23 17:49 codeine Allergy unknown Verified 06/30/23 17:49 cedar Allergy sinus Uncoded 06/30/23 17:49 pine Allergy sinus Uncoded 06/30/23 17:49 pork food Allergy ADR-Nausea Uncoded 06/30/23 17:49 Current Medications Generic Name Dose Route Start Last Admin Trade Name Freq PRN Reason Stop Dose Admin Acetaminophen 650 mg 07/25/23 18:56 07/28/23 12:19 Acetaminophen 325 Mg Tablet PO 650 mg Q6H PRN Administration Mild/Mod Pain Or Temp >/= 101 Albuterol/Ipratropium 3 ml 07/25/23 20:00 08/02/23 15:19 Ipratropium-Albuterol 3 Ml Neb INHALATION 3 ml QID.RESPIRATORY JOCE Administration Atorvastatin Calcium 80 mg 07/25/23 21:00 08/01/23 20:08 Atorvastatin 40 Mg Tablet PO 80 mg BEDTIME JOCE Administration Chlorhexidine Gluconate 15 ml 08/02/23 18:00 08/02/23 16:32 Chlorhexidine Gluconate 0.12% Btl 473 Ml MUCOUS MEM Not Given BID JOCE Digoxin 125 mcg 07/26/23 09:00 08/01/23 08:42 Digoxin 125 Mcg Tablet PO 125 mcg EVERY OTHER DAY JOCE Administration Digoxin 62.5 mcg 07/27/23 09:00 08/02/23 11:39 Digoxin 125 Mcg Tablet PO 62.5 mcg EVERY OTHER DAY JOCE Administration Duloxetine HCl 60 mg 07/26/23 06:00 08/02/23 05:42 Duloxetine 60 Mg Capsule PO 60 mg QAM JOCE Administration Enoxaparin Sodium 40 mg 07/25/23 20:00 08/01/23 20:08 Enoxaparin 40 Mg/0.4 Ml Syringe SUBCUT 40 mg Q24H JOCE Administration Furosemide 40 mg 07/30/23 14:00 08/02/23 15:21 Furosemide 10 Mg/Ml Sdv 4ml IVP 40 mg Q12H JOCE Administration Hydralazine HCl 25 mg 07/28/23 21:00 08/01/23 20:08 Hydralazine 25 Mg Tablet PO 25 mg TID JOCE Administration Piperacillin Sod/Tazobactam 50 mls @ 12.5 mls/hr 07/25/23 20:00 08/02/23 16:38 Sod 3.375 gm/ Sodium Chloride IV Infused Q8H JOCE Infusion Protocol As Directed Trimethoprim/Sulfamethoxazole 450 mls @ 450 mls/hr 07/31/23 22:00 08/02/23 16:32 480 mg/ Dextrose IV Infused Q8H JOCE Infusion Propofol 1,000 mg in 100 mls @ 0 mls/hr 08/02/23 09:00 08/02/23 16:41 Diprivan IV 45 mcg/kg/min .Q0M JOCE 29.58 mls/hr Administration Protocol Per Protocol Fentanyl 1,000 mcg in 100 mls @ 0 mls/hr 08/02/23 09:15 08/02/23 11:58 Sublimaze IV 100 mcg/hr .Q0M JOCE 10 mls/hr Administration Protocol Per Protocol norepinephrine 4 mg in 250 mls @ 0 mls/hr 08/02/23 11:15 08/02/23 11:59 Levophed IV 8 mcg/min .Q0M JOCE 30 mls/hr Administration Protocol Per Protocol Insulin Human Lispro 0 unit 07/27/23 21:00 08/02/23 16:41 Insulin Lispro 100 Unit/1 Ml SUBCUT 8 unit WM&BEDTIME JOCE Administration Protocol Levothyroxine Sodium 150 mcg 07/26/23 06:00 08/02/23 05:42 Levothyroxine 150 Mcg Tablet PO 150 mcg QAM JOCE Administration Lidocaine 1 patch 07/29/23 12:11 08/02/23 11:11 Lidocaine 5% Patch TOPICAL Not Given [id number] JOCE Metoprolol Tartrate 75 mg 07/28/23 09:00 08/01/23 20:16 Metoprolol Tartrate 50 Mg Tablet PO 75 mg BID@0900,2100 JOCE Administration Pantoprazole Sodium 40 mg 07/26/23 09:00 08/02/23 11:[address] 40 Mg Tablet PO Not Given DAILY JOCE Pyridostigmine [place] 60 mg 07/26/23 06:00 08/02/23 05:42 Pyridostigmine 60 Mg Tablet PO 60 mg QAM JOCE Administration PFSH Acute 2 PFSH: Medical History Major depressive disorder, recurrent episode, moderate with anxious distress Duodenal ulcer due to bacteria Psychiatric care Coronary artery disease Immunization counseling High risk medication use Chronic knee pain Chronic low back pain COVID-14 August 2020 Seronegative rheumatoid arthritis of both hands Intermittent atrial fibrillation Poorly controlled diabetes mellitus UTI (urinary tract infection) CHF exacerbation Narrow complex tachycardia Inflammatory arthritis Osteoarthritis of knees, bilateral Fibromyalgia Lung nodule Unstable angina Low back pain of over 3 months duration Urgency incontinence Left renal mass COPD (chronic obstructive pulmonary disease) Oxygen dependent, 2 L at baseline Anxiety and depression Hypothyroidism Liver cirrhosis Hyperlipidemia Hypertension Recurrent UTI Surgical History History of cholecystectomy History of thyroid surgery History of cardiac cath History of hysterectomy History of knee replacement Family History Other CAD (coronary artery disease) Cancer Denies family history of Anesthesia complication Bleeding disorder Social History Smoking and tobacco/nicotine status: former use of tobacco/nicotine Quit status (tobacco/nicotine): has quit using Year quit tobacco: 2005 Second hand smoke exposure: No Alcohol intake: never Substance/Drug Use: never Adopted: No Caregiver/support person: No Lives independently: No Household members: spouse Marital status: Current occupational status: retired Current gender identity: Female Vitals/I&O/Wt Last Vital Signs Temp 97.6 F 08/02/23 16:30 Pulse 97 08/02/23 16:30 Resp 14 08/02/23 16:30 BP 117/69 08/02/23 16:30 Pulse Ox 95 08/02/23 16:30 O2 Del Method Mechanical Ventilation 08/02/23 16:30 O2 Flow Rate 6 08/02/23 08:20 FiO2 40 08/02/23 16:30 08/02/23 08/02/23 08/02/23 06:59 14:59 22:59 Intake Total 500 / 2220 757.748 / 757.748 600 / 1357.748 Output Total 575 / 2175 1300 / 1300 Balance -75 / 45 757.748 / 757.748 -700 / 57.748 Weight last 48 hrs Weight 241 lb 9 oz Physical Exam 2 Narrative: PHYSICAL EXAM: General: lying in bed, sedated and intubated. HEENT:NCAT, PERRLA, EOMI Neck: Supple Lungs: Diffuse crackles Heart: s1/s2, RRR Abd: soft, NT, ND, BS + Normoactive Extremities: No edema DRAGLINE ENGINEER: sedated and limited DRAGLINE ENGINEER exam possible. SKIN: no rash LDA: # CVC: Right internal jugular vein 08/02/2023 # Manzanares: Yes Urinary Catheter Management: Manzanares Latex: Cath Placed During This Visit: yes Reason for Continuing Indwelling Catheter: Acute Urinary Retention or Obstruction Urinary Catheter Date of Insertion: 07/27/23 Urinary Catheter Time of Insertion: 19:45 Data 08/02/23 10:10 08/02/23 16:25 Other Labs: Laboratory Results WBC 9.58 10^3/uL (3.29-11.43) 08/02/23 10:10 RBC 2.99 10^6/uL (3.85-5.65) L 08/02/23 10:10 Hgb 8.10 g/dL (11.27-16.99) L 08/02/23 10:10 Hct 26.7 % (36-47) L 08/02/23 10:10 MCV 89.3 fl (85-98) 08/02/23 10:10 MCH 27.1 pg (27-33) 08/02/23 10:10 MCHC 30.3 g/dL (30-55) 08/02/23 10:10 RDW 16.9 % (12.1-15.1) H 08/02/23 10:10 Plt Count 242 10^3/cmm (157-399) 08/02/23 10:10 MPV 9.4 fL (7.4-10.4) 08/02/23 10:10 Neut % (Auto) 87.5 % 08/02/23 10:10 Lymph % (Auto) 5.0 % 08/02/23 10:10 [place] % (Auto) 6.6 % 08/02/23 10:10 Eos % (Auto) 0.1 % 08/02/23 10:10 Baso % (Auto) 0.2 % 08/02/23 10:10 Neut # (Auto) 8.38 10^3/uL (1.8-7.7) H 08/02/23 10:10 Lymph # (Auto) 0.5 10^3/uL (0.8-4.8) L 08/02/23 10:10 [place] # (Auto) 0.6 10^3/uL (0.2-0.9) 08/02/23 10:10 Eos # (Auto) 0.0 10^3/uL (0.0-0.8) 08/02/23 10:10 Baso # (Auto) 0.0 10^3/uL (0.0-0.1) 08/02/23 10:10 Nucleated RBC % (auto) 0 % 08/02/23 10:10 Nucleated RBCs # 0.0 /100WBC 08/02/23 10:10 D-Dimer 1.05 ug/mLFEU (0-0.59) H 08/02/23 10:10 Specimen Type Arterial 08/02/23 14:35 Sample Site Brachial, right 08/02/23 14:35 ABG pH 7.53 (7.35-7.45) H 08/02/23 14:35 ABG pCO2 47.7 mmHg (35-45) H 08/02/23 14:35 ABG pO2 96.3 mmHg (80.0-100.0) 08/02/23 14:35 ABG PO2/FiO2 Ratio 0 08/02/23 14:35 ABG HCO3 39.8 mmol/L (22-26) H 08/02/23 14:35 ABG O2 Saturation 99.1 08/02/23 14:35 ABG Base Excess 15.5 mmol/L (-2.0-2.0) H 08/02/23 14:35 Memo Test N/a 08/02/23 14:35 A-a O2 Gradient 25.9 mmHg (5-10) H 08/02/23 14:35 Hematocrit 22.2 % (37-47) L 08/02/23 14:35 Hgb O2 Saturation 95.9 % (95-100) 08/02/23 14:35 Carboxyhemoglobin 2.1 %THgb (0.4-20.1) 08/02/23 14:35 Methemoglobin 1.1 % (0.4-1.5) 08/02/23 14:35 Total Hemoglobin 7.2 g/dL (12-16) L 08/02/23 14:35 Sodium 140.0 mmol/L (131-143) 08/02/23 14:35 Potassium 3.1 mmol/L (3.5-5.0) L 08/02/23 14:35 Glucose 155.0 mg/dL (70-115) H 08/02/23 14:35 Ionized Calcium 1.1 mmol/L (1.1-1.4) 08/02/23 14:35 O2 Delivery Device Vent 08/02/23 14:35 O2 Liters/Min 5.0 % 07/25/23 15:12 FiO2 50.0 % 08/02/23 14:35 Tidal Volume 0.40 08/02/23 14:35 PEEP 8.0 cmH20 08/02/23 14:35 Cupola Patcher Helper ID Gd 08/02/23 14:35 Sodium 136 mmol/L (136-145) 08/02/23 16:25 Potassium 2.9 mmol/L (3.5-5.1) L 08/02/23 16:25 Chloride 90 mmol/L (98-107) L 08/02/23 16:25 Carbon Dioxide 38 mmol/L (22-29) H 08/02/23 16:25 Anion Gap 10.9 (5-19) 08/02/23 16:25 BUN 22 mg/dL (8-23) 08/02/23 16:25 Creatinine 1.5 mg/dL (0.5-0.9) H 08/02/23 16:25 GFR Calculation Not Reportable 08/02/23 16:25 Glucose 207 mg/dL (65-115) H 08/02/23 16:25 POC Glucose 211 mg/dL (70-110) H 08/02/23 16:38 Calculated Osmolality 291 mOsm/kg (285-295) 08/02/23 16:25 Calcium 8.6 mg/dL (8.5-10.5) 08/02/23 16:25 Magnesium 1.4 mg/dL (1.7-2.3) L 08/02/23 16:25 Total Bilirubin 0.3 mg/dL (0.15-1.2) 08/02/23 10:10 AST 23 U/L (0-32) 08/02/23 10:10 ALT 15 U/L (0-33) 08/02/23 10:10 Alkaline Phosphatase 89 U/L (35-105) 08/02/23 10:10 Troponin T Baseline 39 ng/L (0-10) H 07/29/23 19:42 Troponin T 120 Minute 34.00 ng/L (0-10) H 07/29/23 21:52 Delta Troponin T -5.00 ABS# (0-10) L 07/29/23 21:52 Troponin T Hi Sens 6Hr 39.61 ng/L (0-10) H 07/30/23 00:40 Troponin T Hi Sens 6Hr Delta 0.61 ng/L (0-12) 07/30/23 00:40 Total Protein 6.0 g/dL (6.6-8.7) L 08/02/23 10:10 Albumin 3.2 g/dL (3.5-5.2) L 08/02/23 10:10 Globulin 2.8 g/dL (1.3-4.6) 08/02/23 10:10 Urine Color Dark yellow (Yellow) 07/25/23 11:54 Urine Appearance Hazy (CLEAR) A 07/25/23 11:54 Urine pH 5 (5-7) 07/25/23 11:54 Ur Specific [place] 1.020 (1.005-1.030) 07/25/23 11:54 Urine Protein Trace (Negative) 07/25/23 11:54 Urine Glucose (UA) Norm (Normal) 07/25/23 11:54 Urine Ketones Negative (Negative) 07/25/23 11:54 Urine Blood Neg (Negative) 07/25/23 11:54 Urine Nitrate Negative (Negative) 07/25/23 11:54 Urine Bilirubin Neg (Negative) 07/25/23 11:54 Urine Urobilinogen Norm mg/dL (Negative) 07/25/23 11:54 Ur Leukocyte Esterase Negative (Negative) 07/25/23 11:54 Urine RBC 0-4 /hpf (0-2) H 07/25/23 11:54 Urine WBC 15-25 /hpf (0-5) H 07/25/23 11:54 Ur Squamous Epith Cells 10-15 /hpf (0-5) H 07/25/23 11:54 Ur Transition Epith Cell 5-10 /hpf 07/25/23 11:54 Amorphous Sediment Not Reportable 07/25/23 11:54 Urine Bacteria Trace /hpf (NONE) 07/25/23 11:54 Hyaline Casts 5-10 /lpf H 07/25/23 11:54 Urine Mucus Trace /hpf 07/25/23 11:54 Vancomycin Trough 12.0 ug/mL (10-15) 07/28/23 14:08 Digoxin 0.9 ng/mL (0.6-1.2) 07/25/23 09:39 Coronavirus 229E (PCR) Not detected (NOT DETECT) 07/25/23 15:47 Influenza Type A Ag negative (Negative) 07/25/23 15:47 Influenza Type B Ag negative (Negative) 07/25/23 15:47 A. galactomannan Ag EIA Not detected 07/26/23 08:55 A. galactomannan Ag Idx <0.50 07/26/23 08:55 SARS-CoV-2 (PCR) Not detected (NOT DETECT) 07/25/23 15:47 TB (QFT) Gold In Tube Negative (NEGATIVE) 07/26/23 08:55 TB Test (QFT) Nil 0.04 IU/mL 07/26/23 08:55 TB Test (QFT) Mitogen 8.86 IU/mL 07/26/23 08:55 TB Test Mitogen - Nil 0.00 IU/mL 07/26/23 08:55 TB Test TB -Nil <0.00 IU/mL 07/26/23 08:55 Beta-(1,3)-D-Glucan 123 pg/mL H 07/26/23 08:55 B-(1,3)-D-Glucan Intrp Positive A 07/26/23 08:55 Misc Test Reference Cancelled 07/30/23 11:20 Micro: Microbiology 08/02/23 09:10 Gram Stain - Final Sputum - Endotracheal Tube Aspirate 08/02/23 10:17 Blood Culture - Preliminary Blood SPECIMEN COLLECTED 08/02/23 10:10 Blood Culture - Preliminary Blood SPECIMEN COLLECTED 07/30/23 11:20 Mycobacterial Smear - Preliminary Sputum - Expectorated Sputum 07/30/23 11:20 Gram Stain - Final Sputum - Expectorated Sputum Sputum Culture - Final A&P Assessment and plan (1) Acute respiratory failure with hypoxia and hypercarbia: (2) Ventilator dependence: (3) CHF (congestive heart failure): Qualifiers: Heart failure type: diastolic Heart failure chronicity: acute on chronic Qualified Code(s): I50.33 - Acute on chronic diastolic (congestive) heart failure (4) Seronegative rheumatoid arthritis of both hands: (5) High risk medication use: (6) Morbid obesity: (7) Chronic atrial fibrillation: (8) CYNTHIA (acute kidney injury): Plan # Acute hypoxic/hypercapnic respiratory failure in patient with underlying COPD, diastolic heart failure, chronic bilateral pleural effusions, morbid obesity # History of rheumatoid arthritis on Humira and immunosuppressive medications- rule out underlying opportunistic infections # CYNTHIA on CKD-monitor renal functions # Chronic A-aaa-acscaqjyc rate controlled-on digoxin and metoprolol # Hypokalemia and hypomagnesemia-supplement and monitor -Intubated and sedated-currently on fentanyl/propofol-most recent ABG showed slight respiratory alkalosis-appears patient baseline CO2 is around 60-made ventilator changes accordingly- -recommended to obtain troponins, BNP, CV echo, CT angiogram to check for any change in cardiac function/rule out PE as cause of sudden desaturation -Endotracheal tube suctioning did not reveal any significant mucus or aspirated material -Bedside ultrasound examination showed mild right pleural effusion-not enough to tap -Patient is on IV Bactrim (day 3 )as well as Zosyn--which may have been contributing to excess volume-she is already on Lasix 40 Mg twice daily with net negative to even balance; will switch to Bumex 1 Mg 3 times daily -Currently patient rate controlled-with digoxin, held metoprolol due to low blood pressure -She is on Levophed 6 mcg/hour-likely secondary to initiation of sedation vs septic shock - Sugars are moderately controlled-On insulin scale coverage -workup so far negative for respiratory viral panel, COVID-19,; Given her immunosuppression for rheumatoid arthritis-extensive workup was sent - So for beta D glucan positive-PCP PCR, histoplasma antigen, coccidioidomycosis-are pending; she was started on IV Bactrim on 07/31/2023 - She is in airborne isolation-sputum for MTB-is pending; TB QuantiFERON is negative ICU CHECKLIST: Problem list updated Verbal orders reviewed and signed Code Status: Full code Disposition: ICU Critically ill: Yes discussed with: Hospitalist, RN, RT Prognosis: Critical Family: updated about medical condition, plan of management, prognosis at bedside Analgesia: Fentanyl Glycemic Control: Scale coverage Nutrition: N.p.o. for now Restraint Renewal (within 24 hrs): Yes Ulcer Prophylaxis: PPI Chemical Thromboprophylaxis: Prophylaxis: Heparin Mechanical Thromboprophylaxis: SCD Need for Central line: Yes for pressors Need for Manzanares catheter: Yes for urine output monitoring Consult Attestations 2 Medical Necessity Statement: Intubated for respiratory failure-on ventilator-needs close ICU monitoring Time Spent in Patient Care: Greater than 35 minutes (>than 50% of time spent in counselling and/or direct pt care on unit) . Critical Care Time: This patient has a high probability of clinically significant, sudden or life threatening deterioration of the patient's (neurological, pulmonary, cardiac, renal, infectious disease) systems required my full, direct attention, the highest level of physician preparedness for urgent intervention and personal management. I managed/supervised life or organ supporting interventions that required frequent physician assessment. I devoted my full attention in the ICU to the direct care of this patient for the period of time indicated above. Time I spent with family or surrogate(s) is included only if the patient was incapable of providing necessary information or participating in decision making. This time includes the following services provided: Telemetry review Mechanical Ventilation Hemodynamic interpretation, assessment and management Review and interpretation of CXR Review and interpretation of lab values Review and interpretation of microbiologic data and culture results Review of medications and administration Review and interpretation of Nutrition requirements and management Discussion of management with other consultants and services Clinical update to family members [x] Data and vital sign review and interpretation [x] Patient assessment, examination and intervention [x] Documentation [x] Medication orders and management Time spent for teaching as well as performing procedures are billed separately and is not included in this note Critical Care Time (min): 78 Coding Level of Care Code 22770 Diagnoses Acute respiratory failure with hypoxia and hypercarbia J96.01; J96.02 Ventilator dependence Z99.11 Acute on chronic diastolic congestive heart failure I50.33 Heart failure type: diastolic Heart failure chronicity: acute on chronic Seronegative rheumatoid arthritis of both hands M06.041; M06.042 High risk medication use Z79.899 Morbid obesity E66.01 Chronic atrial fibrillation I48.20 CYNTHIA (acute kidney injury) N17.9 Time Spent (min) 78
[2023-08-02 17:28] LABS: Alveolar-Arterial Oxygen Gradi 18.1 mmHg (5-10); Arterial Blood Gas Hematocrit 23.8 % (37-47); Base Excess ABG 14.7 mmol/L (-2.0-2.0); Blood Gas Operator Identificat GD; Blood Gas Sample Site Brachial, right; Blood Gas Sample Type Arterial; Blood Gas Tidal Volume 0.35; Carboxyhemoglobin 2.1 %THgb (0.4-20.1); HCO3 ABG 39.5 mmol/L (22-26); HGB O2 Sat 93.4 % (95-100); Ionized Calcium Level - ABG 1.1 mmol/L (1.1-1.4); Methemoglobin 1.5 % (0.4-1.5); Oxygen Device VENT; Oxygen Saturation ABG 96.9; PO2 ABG 81.7 mmHg (80.0-100.0); PO2 FiO2 Ratio Arterial Blood 0; Total Hemoglobin 7.7 g/dL (12-16)
[2023-08-02] MEDS: potassium chloride premix 100 ML 25 MEQ IV (17:38)
--- NOTE | 2023-08-02 17:42 | CTR_ITS ---
PROCEDURE INFORMATION: Exam: CTA Chest With Contrast Exam date and time: 08/02/2023 10:34 PM Age: 72 years old Clinical indication: Other: Hypoxia; Additional info: Possible pe, rapid response for hypoxia TECHNIQUE: Imaging protocol: Computed tomographic angiography of the chest with contrast. Exam focused on the arteries. 3D rendering (Not supervised by radiologist): MIP and/or 3D reconstructed images were created by the technologist. Radiation optimization: All CT scans at this facility use at least one of these dose optimization techniques: automated exposure control; mA and/or kV adjustment per patient size (includes targeted exams where dose is matched to clinical indication); or iterative reconstruction. Contrast material: OMNI 350; Contrast volume: 80 ml; Contrast route: INTRAVENOUS (IV); REPORTING DATA: Count of CT and Cardiac NM exams in prior 12 months: This patient has received 8 known CTs and 0 known cardiac nuclear medicine studies in the 12 months prior to the current study. COMPARISON: CT angio chest PE protcl [id number] 06/16/2023 9:57 PM RADIATION DOSE METRICS: Total DLP (mGy-cm): 550.48 FINDINGS: Tubes, catheters and devices: Endotracheal tube and enteric tube seen in place. Right-sided central venous catheter. Pulmonary arteries: Main pulmonary artery is somewhat prominent which can be a finding of pulmonary artery hypertension. Aorta: Unremarkable. No aortic aneurysm. No aortic dissection. Lungs: Bilateral right greater than left airspace infiltrates. Pleural spaces: Large bilateral pleural effusions. Heart: Cardiomegaly. Coronary arteries: Coronary artery atherosclerotic calcifications. Lymph nodes: Several enlarged mediastinal lymph nodes measuring up to 17 mm, nonspecific. Liver: Cirrhotic liver. Hepatic steatosis. Gallbladder and bile ducts: Cholecystectomy. Bones/joints: Unremarkable. No acute fracture. Soft tissues: Left kidney 16 mm exophytic probable hyperdense cyst, nonemergent ultrasound could further characterize this. CT/CT angio chest PE protcl [id number] IMPRESSION: 1. Negative for pulmonary embolus. 2. Endotracheal tube and enteric tube seen in place. 3. Right-sided central venous catheter. 4. Large bilateral pleural effusions. 5. Several enlarged mediastinal lymph nodes measuring up to 17 mm, nonspecific. 6. Cardiomegaly. 7. Coronary artery atherosclerotic calcifications. 8. Cirrhotic liver. 9. Hepatic steatosis. 10. Cholecystectomy. 11. Bilateral right greater than left airspace infiltrates. 12. Left kidney 16 mm exophytic probable hyperdense cyst, nonemergent ultrasound could further characterize this. 13. Main pulmonary artery is somewhat prominent which can be a finding of pulmonary artery hypertension. COMMENTS: Consistent with the [employer]'s Incidental Findings Committee white paper (J Am Cesar Radiol 2018): Any incidental renal lesion less than 1 cm or classified as too small to characterize, or any incidental cystic renal lesion characterized as simple-appearing, is likely benign. No follow-up imaging is recommended for these lesions per consensus recommendations based on imaging criteria.
[2023-08-02 17:58] LABS: Reflex FDPQ test REFLEX FDP QUEST TES
[2023-08-02 18:15] LABS: INR 1.12 (0.8-1.2)
[2023-08-02 18:16] LABS: Partial Thromboplastin Time 25.9 SECONDS (23.9-36.7)
[2023-08-02 18:19] LABS: D Dimer 0.74 ug/mLFEU (0-0.59)
[2023-08-02 18:23] LABS: Troponin(5th) Baseline 43 ng/L (0-10)
[2023-08-02 18:32] LABS: NT Pro B Type Natriuretic Pept 4242 pg/mL (0-125)
[2023-08-02] MEDS: norepinephrine 4 MG/250 ML BAG 22.5 MG IV (18:49)
[2023-08-02 19:15] LABS: Fibrinogen 556 mg/dL (174-498)
[2023-08-02] MEDS: bumetanide 0.25 mg/mL SDV 4 mL 1 MG IVP (20:02)
[2023-08-02] MEDS: enoxaparin 40 mg/0.4 mL Syringe SUBCUT (20:03)
[2023-08-02 20:33] LABS: Troponin 5 2HR 47.08 ng/L (0-10); Troponin 5 2HR Delta 4.08 ABS# (0-10)
[2023-08-02 20:59] LABS: ABG PCO2 57.4 mmHg (35-45); ABG PH Result 7.46 (7.35-7.45); Alveolar-Arterial Oxygen Gradi 16.6 mmHg (5-10); Arterial Blood Gas Hematocrit 31.2 % (37-47); Base Excess ABG 14.4 mmol/L (-2.0-2.0); Blood Gas Allen Test Pos; Blood Gas Operator Identificat JB; Blood Gas Sample Site Brachial, right; Blood Gas Sample Type Arterial; Carboxyhemoglobin 1.2 %THgb (0.4-20.1); HCO3 ABG 40.3 mmol/L (22-26); HGB O2 Sat 93.7 % (95-100); Ionized Calcium Level - ABG 1.1 mmol/L (1.1-1.4); Methemoglobin 0.8 % (0.4-1.5); Oxygen Device VENT; Oxygen Saturation ABG 95.6; PO2 ABG 85.5 mmHg (80.0-100.0); PO2 FiO2 Ratio Arterial Blood 0; Potassium Level - ABG 3.4 mmol/L (3.5-5.0); Total Hemoglobin 10.2 g/dL (12-16)
[2023-08-02 21:00] LABS: Blood Gas Tidal Volume 0.35
[2023-08-02 21:32] LABS: Glucose Point of Care 113 mg/dL (70-110)
[2023-08-02] MEDS: atorvastatin 40 mg Tablet 80 MG PO ×2 (21:35→21:50)
[2023-08-02 22:04] LABS: Coccidioides AB CF Serum <1:2; Histoplasma capsulatum H Ab NEGATIVE; Histoplasma capsulatum M Ab NEGATIVE
[2023-08-02 23:30] LABS: Histoplasma Galactomannan Ag <0.2 ng/mL
[2023-08-03] VITALS (134 sets, daily range): BP systolic 79–130; BP diastolic 42–71; PULSE 87–131; RESP 12–14; TEMP 36.1–36.6; O2SAT 91–99; BMI 33.4
[2023-08-03] MEDS: piperacillin-tazobactam 3.375 GM in sodium chloride 0.9% (plus) 50 ML IV ×2 (03:50→11:43)
[2023-08-03] MEDS: bumetanide 0.25 mg/mL SDV 4 mL 1 MG IVP ×4 (03:51→20:13)
[2023-08-03] MEDS: fentaNYL 1,000 MCG/100 ML BAG 10 MCG IV (04:04)
[2023-08-03 05:00] LABS: Anion Gap 15.6 (5-19); Blood Urea Nitrogen 23 mg/dL (8-23); Carbon Dioxide 34 mmol/L (22-29); Chloride 90 mmol/L (98-107); Glucose 163 mg/dL (65-115); Magnesium 1.5 mg/dL (1.7-2.3); Osmolality Calculated 289 mOsm/kg (285-295); Potassium 3.6 mmol/L (3.5-5.1); Sodium 136 mmol/L (136-145)
[2023-08-03 05:16] LABS: Glucose Point of Care 153 mg/dL (70-110)
[2023-08-03] MEDS: propofol 1,000 MG/100 ML INJ 23.01 MG IV ×5 (05:38→22:04)
[2023-08-03] MEDS: duloxetine 60 mg Capsule PO (05:44)
[2023-08-03] MEDS: levothyroxine 150 mcg Tablet PO (05:44)
[2023-08-03] MEDS: pyridostigmine 60 mg Tablet PO (05:44)
[2023-08-03] MEDS: norepinephrine 4 MG/250 ML BAG 22.5 MG IV ×2 (06:40→17:39)
--- NOTE | 2023-08-03 08:00 | XR_ITS ---
WS: [id number] Portable AP supine chest, 08/03/2023 Clinical Data: follow up Comparison: None. Findings: Diffuse patchy opacities are seen throughout both lungs consistent with pulmonary edema. Th ere is a right pleural effusion and probably a small left pleural effusion. The endotracheal tube, ri ght internal jugular venous catheter and nasogastric tube remain in the same position. There are krzysztof tor leads on the chest wall. The heart is probably enlarged. Impression: 1. Diffuse patchy pulmonary opacities most consistent with pulmonary edema. 2. Large right pleural effusion and probable moderate left pleural effusion. 3. Cardiomegaly. 4. No change in position of multiple tubes.
[2023-08-03] MEDS: ipratropium-albuterol 3 mL Neb INHALATION ×4 (08:09→19:36)
[2023-08-03] MEDS: pantoprazole 40 mg SDV IVP (09:06)
[2023-08-03] MEDS: digoxin 125 mcg Tablet PO (09:06)
[2023-08-03] MEDS: lidocaine 5% Patch 1 PATCH TOPICAL (09:06)
[2023-08-03] MEDS: chlorhexidine gluconate 0.12% Btl 473 mL 15 ML MUCOUS MEM ×2 (09:15→17:28)
--- NOTE | 2023-08-03 09:58 | PC.SOCIAL ---
IMM Update Pt is intubated. IMM not updated with pt or family. Pt is not expected to d/c within the next 24-48hrs. Provided pt a copy & left at bedside for family to review. Initialed, dated, & timed copy in chart.
[2023-08-03 11:30] LABS: Glucose Point of Care 153 mg/dL (70-110)
[2023-08-03] MEDS: insulin lispro 100 unit/1 mL SUBCUT ×2 (11:43→17:29)
--- NOTE | 2023-08-03 13:53 | PM.PN ---
Subjective Subjective: Seen this morning. Requiring Levophed 6 mics, on propofol and fentanyl. FiO2 40%. Patient is net +935. CT chest shows bilateral pleural effusions moderate to large. No PE. Creatinine 1.7 yeast in urine Vitals/I&O/Wt Last Vital Signs Temp 97.0 F L 08/03/23 04:45 Pulse 107 H 08/03/23 11:05 Resp 12 08/03/23 11:17 BP 92/64 08/03/23 11:00 Pulse Ox 97 08/03/23 11:17 O2 Del Method Mechanical Ventilation 08/03/23 11:05 O2 Flow Rate 6 08/02/23 08:20 FiO2 40 08/03/23 11:17 08/02/23 08/03/23 08/03/23 22:59 06:59 14:59 Intake Total 973.086 / 6427.773 4143.500 / 2773.334 820.542 / 820.542 Output Total 2049 / 2049 900 / 2950 Balance -1076.914 / -319.166 142.500 / -176.666 820.542 / 820.542 Weight last 48 hrs Weight 105.687 kg Physical Exam Narrative: PHYSICAL EXAM: General: lying in bed, sedated and intubated. 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 SKIN: no rash LDA: # CVC: Right internal jugular vein 08/02/2023 # Romero: Yes Urinary Catheter Management: Romero Latex: Cath Placed During This Visit: yes Reason for Continuing Indwelling Catheter: Accurate Measurement of Urinary Output in Critically Ill Patients Urinary Catheter Date of Insertion: 07/27/23 Urinary Catheter Time of Insertion: 19:45 Data 08/02/23 10:10 08/03/23 04:26 Micro: Microbiology 08/02/23 11:32 Urine Culture - Preliminary Urine Catheterized Yeast 08/02/23 10:17 Blood Culture - Preliminary Blood NEGATIVE TO DATE 08/02/23 10:10 Blood Culture - Preliminary Blood NEGATIVE TO DATE 08/02/23 09:10 Gram Stain - Final Sputum - Endotracheal Tube Aspirate A&P Assessment and plan (1) COPD (chronic obstructive pulmonary disease): Qualifiers: COPD type: unspecified COPD Qualified Code(s): J44.9 - Chronic obstructive pulmonary disease, unspecified (2) Acute and chronic respiratory failure with hypoxia: (3) PNA (pneumonia): (4) Pleural effusion: (5) CHF (congestive heart failure): acute on chronic with preserved EF Qualifiers: Heart failure type: diastolic Heart failure chronicity: acute on chronic Qualified Code(s): I50.33 - Acute on chronic diastolic (congestive) heart failure (6) Ventilator dependence: (7) Respiratory failure: (8) Acute respiratory failure with hypoxia and hypercarbia: (9) Respiratory acidosis: Plan 72-year-old lady with COPD, CHF, currently admitted to the hospital with acute on chronic hypoxic respiratory failure with multiple recent hospital admissions for the same reason. Recent chest x-rays and CAT scans have shows bilateral infiltrates which may represent pneumonic infiltrates versus pulmonary edema. pending sputum culture evaluation ongoing for opportunistic pneumonia while remaining on emepric zosyn. SHe has had levaquin as outpatient recently, less likely atypical infection. AFB smear negative x 1 ,pending 2 ; MTB PCR pending pending serum beta glucan, serum Aspergillus galactomannan, PCP PCR, MTB PCR and AFB culture x3. Prior QuantiFERON screening from 2019 was negative. pending more recent QuantiFERON now. Previous PPD positive per patient these were reportedly determined to be false positives pending histoplasma and Coccidioides serology. Patient denies any history of recent travel. She has noted to have bilateral pleural effusions additionally, thoracentesis was attempted on her most recent admission for diagnostic purposes, however there was insufficient fluid to proceed. b-d glucan weakly positive. negative respiratory viral panel. Echocardiogram from July 01, 2023 showed normal left ventricular size systolic function and wall thickness without regional wall motion abnormalities. LVEF of 65%. Aortic valve sclerosis without stenosis. Continue home medications including metoprolol, lisinopril duoneb q6h, budesonide q12h Flutter valve/spirometer at bedside CTA PE negative for PE BP better today after incraesing hydralazine, continue to monitor and uptitrate as needed #Vent dependent repiratory failure #Acute hypercabic resp failure #Chronic hypoxic resp failure #Acute on chronic diasotlic HF #Hx of multiple admissions #Immunocompromised, on adalimumab, methrotrexate outpatient, - Continue patient on IV Bactrim every 8 hours. Watch for fluid overload. Monitor BMP and magnesium every 12 hours. Replete as needed. COntinue bumex 1 mg tid diamox 500 daily - Continue home medications including metoprolol, lisinopril duoneb q6h, budesonide q12h Flutter valve/spirometer at bedside CTA PE negative for PE repeat ct chest today check labs cbc cmp, mag abg, sputum culture gm stain, blood culture wean of levophed as able to , cut down fentanyl to 75. propofol + fentanyl for sedation and pain vent protocol recheck ABG as per protocol consult pulmnology. appreciate elio romero Full Code DVT PPX: lovenox GI ppx: protonix 40 IV daily Attestations Medical Necessity Statement*: intubated. Coding Level of Care Code Critical Care >/= 30 minutes Critical care time (in minutes): 40 The high probability of a clinically significant, sudden or life threatening deterioration, as referenced in this documentation, required my full and direct attention, intervention and personal management. The critical care time shown is in addition to time spent performing any reported separately billable procedures and includes the following: [x] Data and vital sign review and interpretation [x] Patient assessment, examination and intervention [x] Medication orders and management [x] Patient/Family updates as able [x] Care Coordination and Documentation. Diagnoses Chronic obstructive pulmonary disease, unspecified COPD type J44.9 COPD type: unspecified COPD Acute and chronic respiratory failure with hypoxia J96.21 PNA (pneumonia) J18.9 Pleural effusion J90 Acute on chronic diastolic congestive heart failure I50.33 Heart failure type: diastolic Heart failure chronicity: acute on chronic Ventilator dependence Z99.11 Respiratory failure J96.90 Acute respiratory failure with hypoxia and hypercarbia J96.01; J96.02 Respiratory acidosis E87.29
[2023-08-03] MEDS: fentaNYL 1,000 MCG/100 ML BAG 7.5 MCG IV (14:05)
--- NOTE | 2023-08-03 15:00 | PC.NURSE ---
Catheter replaced as ordered by Dr Terry. Sophie Ashford covered with yest and yeast bumps. Dr Terry notified. Orders for nystatin and fluconazole received.
--- NOTE | 2023-08-03 15:05 | PC.OT ---
Pt still on hold for OT services due to being intubated. Will attempt at later date.
[2023-08-03 15:52] LABS: Bacillus cereus group Not Detected (NOT DETECT); Bacillus subtillis group Not Detected (NOT DETECT); Corynebacterium Not Detected (NOT DETECT); Cutibacterium acnes (P.acnes) Not Detected (NOT DETECT); Enterococcus Not Detected (NOT DETECT); Enterococcus faecalis Not Detected (NOT DETECT); Enterococcus faecium Not Detected (NOT DETECT); Lactobacillus species Not Detected (NOT DETECT); Listeria Not Detected (NOT DETECT); Listeria monocytogenes Not Detected (NOT DETECT); Micrococcus Not Detected (NOT DETECT); Pan Candida Not Detected (NOT DETECT); Pan Gram-Negative Not Detected (NOT DETECT); Staphylococcus epidermidis Not Detected (NOT DETECT); Staphylococcus lugdunensis Not Detected (NOT DETECT); Staphylococcus species Detected (NOT DETECT); Streptococcus agalactiae Not Detected (NOT DETECT); Streptococcus anginosus group Not Detected (NOT DETECT); Streptococcus pneumoniae Not Detected (NOT DETECT); Streptococcus pyogenes Not Detected (NOT DETECT); Streptococcus species Not Detected (NOT DETECT); mecA Detected (NOT DETECT); mecC Not Detected (NOT DETECT)
[2023-08-03 16:56] LABS: Glucose Point of Care 183 mg/dL (70-110)
[2023-08-03] MEDS: nystatin powder 15 gm Btl 1 APPLIC TOPICAL (17:28)
[2023-08-03] MEDS: fluconazole premix 200 MG/100 ML PREMIX 100 MG IV (17:29)
[2023-08-03 18:29] LABS: Blood Urea Nitrogen 25 mg/dL (8-23); Calcium 8.5 mg/dL (8.5-10.5); Carbon Dioxide 26 mmol/L (22-29); Chloride 88 mmol/L (98-107); Glucose 166 mg/dL (65-115); Magnesium 1.6 mg/dL (1.7-2.3); Osmolality Calculated 284 mOsm/kg (285-295); Sodium 133 mmol/L (136-145)
[2023-08-03 18:36] LABS: Anion Gap 22.7 (5-19); Potassium 3.7 mmol/L (3.5-5.1)
--- NOTE | 2023-08-03 18:40 | PC.NURSE ---
Shift summary: Pt remains sedated and intubated. No changes in vent settings today. FIO 2 remains at 40%. Propofol and Fentanyl still infusing for sedation. Levophed remains infusing, now at 6mcg/min again, unable to wean today. Flucannazole and Levaquin started today. 1-2+ pitting edema noted on her extremities. Romero catheter changed out today, 375ml output with first romero . Second romero was a difficult insertion , no immediate urine noted. A slight amount noted in cath tubing later. Significant amount of yeast and yeast bumps noted on her labia majora.
[2023-08-03] MEDS: enoxaparin 40 mg/0.4 mL Syringe SUBCUT (20:13)
--- NOTE | 2023-08-03 21:05 | PC.NURSE ---
Changed pt dressing on sacrum. Cleansed with 4x4 gauze and NS. Applied 4x4 hydrocellular dressing over stage II ulcer. Noted area above purple in color and non-blanchable. Applied 4x4 dressing for protective precautions. Pt tolerated well. No s/s of distress.
--- NOTE | 2023-08-03 22:24 | PC.NURSE ---
Patient noted to have scant urine output since replacement of romero on dayshift. Bladder scan with multiple machines revealed 16ml of urine. Patient noted to be receiving bumex Tid and hospitalist notified of concerns. Will continue to monitor output. Catheter flushed to ensure patency. Approximately 30ml of urine observed in romero bag.
[2023-08-04] VITALS (63 sets, daily range): BP systolic 73–172; BP diastolic 45–142; PULSE 99–135; RESP 12–16; TEMP 36.5–37.5; O2SAT 85–100
[2023-08-04] MEDS: chlorhexidine gluconate 4% Btl 118 mL 1 APPLIC TOPICAL (00:53)
[2023-08-04] MEDS: propofol 1,000 MG/100 ML INJ 23.01 MG IV ×5 (02:33→22:37)
[2023-08-04] MEDS: fentaNYL 1,000 MCG/100 ML BAG 10 MCG IV (02:50)
[2023-08-04] MEDS: norepinephrine 4 MG/250 ML BAG 22.5 MG IV (03:18)
--- NOTE | 2023-08-04 05:16 | PC.NURSE ---
Urine noted to be low throughout shift. 100mls total, multiple bladder scans through shift resulted in scant amounts. OG residuals noted to increase during shift. 680 Dumped around 0000, 0400 residual was 800. Hospitalist notified and received order to place patient on low intermittent suction.
[2023-08-04 05:23] LABS: Basophils # 0.1 10^3/uL (0.0-0.1); Eosinophils # 0.2 10^3/uL (0.0-0.8); Eosinophils % 2.2 %; Hematocrit 24.7 % (36-47); Lymphocytes # 1.3 10^3/uL (0.8-4.8); Lymphocytes % 14.5 %; Mean Corpuscular Hemoglobin 26.3 pg (27-33); Mean Corpuscular Volume 87.9 fl (85-98); Mean Platelet Volume 9.7 fL (7.4-10.4); Monocytes # 1.1 10^3/uL (0.2-0.9); Neutrophils # 6.44 10^3/uL (1.8-7.7); Neutrophils % 69.8 %; Nucleated Red Blood Cells % 0 %; Platelet Count 233 10^3/cmm (157-399); Red Blood Count 2.81 10^6/uL (3.85-5.65); Red Cell Distribution Width 17.1 % (12.1-15.1); White Blood Count 9.23 10^3/uL (3.29-11.43)
[2023-08-04 05:26] LABS: Arterial Blood Gas Hematocrit 36.9 % (37-47); Base Excess ABG 5.4 mmol/L (-2.0-2.0); Blood Gas Sample Type Arterial; Carboxyhemoglobin 2.1 %THgb (0.4-20.1); HCO3 ABG 33.7 mmol/L (22-26); HGB O2 Sat 89.4 % (95-100); Ionized Calcium Level - ABG 1.1 mmol/L (1.1-1.4); Oxygen Saturation ABG 92.3; PO2 ABG 75.8 mmHg (80.0-100.0); Potassium Level - ABG 3.7 mmol/L (3.5-5.0)
[2023-08-04 05:27] LABS: Alveolar-Arterial Oxygen Gradi 16.3 mmHg (5-10); Blood Gas Operator Identificat JB; Blood Gas Sample Site Brachial, right; Blood Gas Tidal Volume 0.35; Oxygen Device VENT; PO2 FiO2 Ratio Arterial Blood 0
[2023-08-04 05:28] LABS: ABG PCO2 68.3 mmHg (35-45)
[2023-08-04 05:34] LABS: INR 1.11 (0.8-1.2)
[2023-08-04 05:50] LABS: Anion Gap 19.8 (5-19); Blood Urea Nitrogen 27 mg/dL (8-23); Calcium 8.6 mg/dL (8.5-10.5); Carbon Dioxide 30 mmol/L (22-29); Chloride 88 mmol/L (98-107); Glucose 116 mg/dL (65-115); Magnesium 1.5 mg/dL (1.7-2.3); Osmolality Calculated 284 mOsm/kg (285-295); Potassium 3.8 mmol/L (3.5-5.1); Sodium 134 mmol/L (136-145)
--- NOTE | 2023-08-04 06:00 | USCV_ITS ---
Myesha Parker Age: 72 Gender: F : 1950 Exam Date: 08/04/2023 16:43 Ordering Phys: Adriane Terry MD Technologist: Cezar Max Exam Location: [facility] [place] Indication: rule out endocarditis BP: 101 / 48 HR: 132 Rhythm: Other Technical Quality: Poor MEASUREMENTS (Male / Female) Normal Values 2D ECHO LVOT Diameter 2.0 cm LV Ejection Fraction MOD 2C 64.4 % LV Ejection Fraction 2C AL 64.9 % LA Diameter 3.7 cm LA Width 3.8 cm LA Height 4.7 cm RA Width 2.8 cm RA Height 4.3 cm Aorta at Sinotubular Diameter 1.5 cm IVC Diameter 1.8 cm M-MODE Aortic Annulus Diameter 2.4 cm LA Ao Ratio MM 1.5 MV E Point Septal Separation 0.7 cm DOPPLER AV Peak Velocity 258.0 cm/s LVOT Peak Velocity 152.0 cm/s AV Area Cont Eq vti 2.2 cm squared AV Area Cont Eq pk 1.9 cm squared MV Peak Velocity 197.0 cm/s MV Area PHT 3.4 cm squared Mitral E to A Ratio 3.4 MV E' Velocity 134.0 cm/s TR Peak Velocity 342.0 cm/s TR Peak Gradient 46.8 mmHg TR Mean Velocity 248.4 cm/s TR Mean Gradient 26.9 mmHg TR Velocity Time Integral 68.7 cm Right Atrial Pressure 8.0 mmHg Pulmonary Artery Systolic Pressu 54.8 mmHg PV Peak Velocity 135.0 cm/s RV Acceleration Time 0.1 s RV Ejection Time 0.2 s RV AcT/ET 0.4 FINDINGS Left Ventricle The study is relatively poor quality due to the irregular rhythm and tachycardia. Heart rate is approximately 130 bpm. This significantly limits the sensitivity to the examination. The ventricle, at least in 1 view, appears to be normal in size and probably normal in function. Wall motion cannot be determined. Diastology cannot be determined. Right Ventricle Right ventricle not well visualized. Moderate pulmonary hypertension, RVSP 54.8 mmHg. Right Atrium Mildly increased right atrial size. Left Atrium Moderately increased left atrial size. Mitral Valve Mitral valve not well visualized. There is at least mild mitral regurgitation Aortic Valve Aortic valve not well visualized. Tricuspid Valve Tricuspid valve not well visualized. There is at least mild tricuspid regurgitation Pulmonic Valve Pulmonic valve not well visualized. Pericardium Normal pericardium without effusion. Aorta Normal ascending aorta dimension. IVC The inferior vena cava appears normal. CONCLUSIONS The study is relatively poor quality due to the irregular rhythm and tachycardia. Heart rate is approximately 130 bpm. This significantly limits the sensitivity to the examination. The ventricle, at least in 1 view, appears to be normal in size and probably normal in function. Wall motion cannot be determined. Diastology cannot be determined. Right ventricle not well visualized. Moderate pulmonary hypertension, RVSP 54.8 mmHg. Mildly increased right atrial size. Moderately increased left atrial size. Mitral valve not well visualized. There is at least mild mitral regurgitation. The previous echocardiogram was done only 1 month ago. This study quality is severely limited by the irregular tachycardia. The study is essentially unchanged. Dr. Min Tipton MD (Electronically Signed) Final Date: 05 August 2023 08:29 S
[2023-08-04] MEDS: pyridostigmine 60 mg Tablet PO (06:13)
[2023-08-04] MEDS: duloxetine 60 mg Capsule PO (06:13)
[2023-08-04] MEDS: levothyroxine 150 mcg Tablet PO (06:13)
[2023-08-04] MEDS: ipratropium-albuterol 3 mL Neb INHALATION ×4 (07:45→19:22)
--- NOTE | 2023-08-04 08:28 | P.PN_ITS ---
Subjective 2 Subjective: Seen this morning. Hemoglobin 7.40. Nursing staff is reported that every time her blood draw is done she tends to bleed longer than normal. Gas this morning shows 7.30/68.3/75.8, on 40% FiO2. Creatinine 3.0, BUN 27, anion gap 19.8, bicarb 30, magnesium 1.5. Urine output 475 cc overnight total. She is +1.5 L since admission. X-ray from this morning pending. 1 out of 2 to bottles of blood culture p ositive for staph in clusters, most likely MRSA, final report pending at this time. Repeat echo is pending at this time. Patient in A-fib with RVR with heart rate up to 130 this a.m. Rhythm irregularly irregular. Vitals/I&O/Wt Last Vital Signs Temp 98.4 F 08/04/23 06:30 Pulse 110 H 08/04/23 07:55 Resp 14 08/04/23 07:47 BP 93/51 08/04/23 06:30 Pulse Ox 98 08/04/23 07:47 O2 Del Method Mechanical Ventilation 08/04/23 07:45 O2 Flow Rate 6 08/02/23 08:20 FiO2 40 08/04/23 07:47 08/03/23 08/04/23 08/04/23 22:59 06:59 14:59 Intake Total 887.827 / 1823.761 892.225 / 2715.986 122.358 / 122.358 Output Total 375 / 375 1580 / 1955 Balance 512.827 / 1448.761 -687.775 / 760.986 122.358 / 122.358 Weight last 48 hrs Weight 109.225 kg Weight 105.687 kg Physical Exam 2 Narrative: PHYSICAL EXAM: General: lying in bed, sedated and intubated. 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 LDA: # CVC: Right internal jugular vein 08/02/2023 # Manzanares: Yes Urinary Catheter Management: Manzanares Latex: Cath Placed During This Visit: yes, but has since been removed by the nurse Reason for Continuing Indwelling Catheter: Accurate Measurement of Urinary Output in Critically Ill Patients Urinary Catheter Date of Insertion: 07/27/23 Urinary Catheter Time of Insertion: 19:45 Date Urinary Catheter Removed: 08/03/23 Time Urinary Catheter Discontinued: 14:30 Manzanares: Cath Placed During This Visit: no Reason for Continuing Indwelling Catheter: Accurate Measurement of Urinary Output in Critically Ill Patients Data 08/04/23 04:55 08/04/23 04:55 Micro: Microbiology 08/03/23 23:51 Blood Culture - Preliminary Blood SPECIMEN COLLECTED 08/03/23 23:45 Blood Culture - Preliminary Blood SPECIMEN COLLECTED 08/02/23 10:10 Blood Culture - Preliminary Blood Staphylococcus species 08/02/23 09:10 Gram Stain - Final Sputum - Endotracheal Tube Aspirate Sputum Culture - Preliminary 08/02/23 11:32 Urine Culture - Preliminary Urine Catheterized Yeast 08/02/23 10:17 Blood Culture - Preliminary Blood NEGATIVE TO DATE A&P Assessment and plan (1) COPD (chronic obstructive pulmonary disease): Qualifiers: COPD type: unspecified COPD Qualified Code(s): J44.9 - Chronic obstructive pulmonary disease, unspecified (2) Acute and chronic respiratory failure with hypoxia: (3) PNA (pneumonia): (4) Pleural effusion: (5) CHF (congestive heart failure): acute on chronic with preserved EF Qualifiers: Heart failure type: diastolic Heart failure chronicity: acute on chronic Qualified Code(s): I50.33 - Acute on chronic diastolic (congestive) heart failure (6) Ventilator dependence: (7) Respiratory failure: (8) Acute respiratory failure with hypoxia and hypercarbia: (9) Respiratory acidosis: Plan 72-year-old lady with COPD, CHF, currently admitted to the hospital with acute on chronic hypoxic respiratory failure with multiple recent hospital admissions for the same reason. Recent chest x-rays and CAT scans have shows bilateral infiltrates which may represent pneumonic infiltrates versus pulmonary edema. pending sputum culture evaluation ongoing for opportunistic pneumonia while remaining on emepric zosyn. SHe has had levaquin as outpatient recently, less likely atypical infection. AFB smear negative x 1 ,pending 2 ; MTB PCR pending pending serum beta glucan, serum Aspergillus galactomannan, PCP PCR, MTB PCR and AFB culture x3. Prior QuantiFERON screening from 2019 was negative. pending more recent QuantiFERON now. Previous PPD positive per patient these were reportedly determined to be false positives pending histoplasma and Coccidioides serology. Patient denies any history of recent travel. She has noted to have bilateral pleural effusions additionally, thoracentesis was attempted on her most recent admission for diagnostic purposes, however there was insufficient fluid to proceed. b-d glucan weakly positive. negative respiratory viral panel. Echocardiogram from July 01, 2023 showed normal left ventricular size systolic function and wall thickness without regional wall motion abnormalities. LVEF of 65%. Aortic valve sclerosis without stenosis. #Vent dependent repiratory failure #Gram-positive bacteremia, staph in clusters #Septic shock #Acute kidney injury, prerenal possibly ATN. #Acute hypercabic resp failure #Chronic hypoxic resp failure #Acute on chronic diasotlic HF #Hx of multiple admissions #Immunocompromised, on adalimumab, methrotrexate outpatient, #A-fib with RVR #Acute on chronic anemia ? Check FOBT ? Protonix IV twice daily ? Continue to hold metoprolol. Ordered amnio bolus and subsequently amnio drip. Stop digoxin due to kidney injury. Check digoxin level - Continue patient on IV Bactrim every 8 hours. Watch for fluid overload. Monitor BMP and magnesium every 12 hours. Replete as needed. COntinue bumex 1 mg tid BNP 4400 -Hold home metoprolol, lisinopril duoneb q6h, CTA PE negative for PE repeat ct chest today check labs cbc cmp, mag abg, sputum culture gm stain, blood culture wean of levophed as able to , Continue on fentanyl to 75. propofol + fentanyl for sedation and pain vent protocol recheck ABG as per protocol consult pulmnology. appreciate recs Manzanares catheter swapped yesterday. ? Check iron panel, TIBC, ferritin ? Check FOBT ? Check vitamin B12 level ? Patient currently on vasopressor Levophed of 6. Blood culture positive for staph in clusters possibly MRSA. She will be covered with Bactrim for that. ? Repeat blood cultures pending at this time ? Check echo to look for vegetation ? Unsure of clear source at this point. ? Final report blood culture pending at this time ? Placed on fluconazole 200 daily for yeast in urine. Nystatin powder also ordered for perineal area. -Consult nephrology - updated at bedside. Full Code DVT PPX: SCDs. GI ppx: protonix 40 IV BID Prognosis is poor. Attestations 2 Medical Necessity Statement*: critically ill in icu Critical Care Time: The high probability of a clinically significant, sudden or life threatening deterioration of the patient's [renal, respiratory, cardiovascular, skin] system(s) required my full and direct attention, intervention and personal management. The critical care time is as shown. This time is in addition to time spent performing any reported procedures but includes the following: [x] Data and vital sign review and interpretation [x] Patient assessment, examination and intervention [x] Documentation [x] Medication orders and management Critical Care Time (min): 65 Coding Level of Care Code Acute Code for [facility] Fwd Diagnoses Chronic obstructive pulmonary disease, unspecified COPD type J44.9 COPD type: unspecified COPD Acute and chronic respiratory failure with hypoxia J96.21 PNA (pneumonia) J18.9 Pleural effusion J90 Acute on chronic diastolic congestive heart failure I50.33 Heart failure type: diastolic Heart failure chronicity: acute on chronic Ventilator dependence Z99.11 Respiratory failure J96.90 Acute respiratory failure with hypoxia and hypercarbia J96.01; J96.02 Respiratory acidosis E87.29
[2023-08-04] MEDS: bumetanide 0.25 mg/mL SDV 4 mL 1 MG IVP (09:28)
[2023-08-04] MEDS: digoxin 125 mcg Tablet 62.5 MCG PO (09:28)
[2023-08-04] MEDS: pantoprazole 40 mg SDV IVP ×2 (09:28→17:26)
[2023-08-04] MEDS: lidocaine 5% Patch 1 PATCH TOPICAL (09:28)
[2023-08-04] MEDS: chlorhexidine gluconate 0.12% Btl 473 mL 15 ML MUCOUS MEM ×2 (09:29→17:30)
[2023-08-04] MEDS: nystatin powder 15 gm Btl 1 APPLIC TOPICAL ×2 (09:29→17:30)
[2023-08-04] MEDS: amiodarone 150 MG/100 ML PREMIX 400 MG IV (10:36)
[2023-08-04 11:31] LABS: Glucose Point of Care 131 mg/dL (70-110)
[2023-08-04 11:31] LABS: Glucose Point of Care 139 mg/dL (70-110)
[2023-08-04 11:31] LABS: Glucose Point of Care 138 mg/dL (70-110)
[2023-08-04 11:43] LABS: Digoxin 0.6 ng/mL (0.6-1.2)
[2023-08-04 11:46] LABS: Ferritin 110 ng/mL (15-150); Iron 50 ug/dL (37-145); Percent Saturation 18.3 % (20-50); Total Iron Binding Capacity 273 mcg/dl; Unsaturated Iron Binding 223 ug/dL (112-347)
[2023-08-04 12:01] LABS: 25 Hydroxy Vitamin D 35 ng/mL (30-100); Procalcitonin 0.47 ng/mL (0-0.5); Vitamin B12 799 pg/mL (232-1245)
[2023-08-04] MEDS: norepinephrine 4 MG/250 ML BAG 33.75 MG IV (13:36)
[2023-08-04] MEDS: fentaNYL 1,000 MCG/100 ML BAG 11 MCG IV ×2 (13:37→23:39)
--- NOTE | 2023-08-04 14:43 | XRR_ITS ---
PROCEDURE INFORMATION: Exam: XR Abdomen Exam date and time: 08/04/2023 4:57 PM Age: 72 years old Clinical indication: Bloating; Patient HX: Brian; Abdominal distention TECHNIQUE: Imaging protocol: Radiologic exam of the abdomen. Views: Frontal supine view of the abdomen. 1 View. COMPARISON: [place] [id number] 04/16/2022 10:51 PM FINDINGS: Gastrointestinal tract: Air-filled structure positioned in the midline lower abdomen may represent a low-lying stomach. Dilated bowel loop cannot be excluded. Organs: Clips are present in the right upper quadrant consistent with prior cholecystectomy. Bones/joints: Unremarkable. XR/XR abdomen 1V* [id number] IMPRESSION: Air-filled structure positioned in the midline lower abdomen may represent a low-lying stomach. Dilated bowel loop/obstruction cannot be excluded.
[2023-08-04 15:07] LABS: ABG PCO2 57.3 mmHg (35-45); ABG PH Result 7.36 (7.35-7.45); Alveolar-Arterial Oxygen Gradi 34.6 mmHg (5-10); Arterial Blood Gas Hematocrit 22.2 % (37-47); Base Excess ABG 6.2 mmol/L (-2.0-2.0); Blood Gas Operator Identificat GD; Blood Gas Sample Site Brachial, right; Blood Gas Sample Type Arterial; Carboxyhemoglobin 2.1 %THgb (0.4-20.1); HCO3 ABG 32.4 mmol/L (22-26); Ionized Calcium Level - ABG 1.1 mmol/L (1.1-1.4); Methemoglobin 1.6 % (0.4-1.5); Oxygen Device VENT; Oxygen Saturation ABG 96.6; PO2 FiO2 Ratio Arterial Blood 0; Potassium Level - ABG 3.7 mmol/L (3.5-5.0); Total Hemoglobin 7.2 g/dL (12-16)
[2023-08-04] MEDS: albumin 12.5 GM/50 ML VIAL IV (15:15)
[2023-08-04 15:45] LABS: Lactate (Lactic Acid level) 3.6 mmol/L (0.5-2.2)
[2023-08-04 15:47] LABS: Anion Gap 22.7 (5-19); Blood Urea Nitrogen 28 mg/dL (8-23); Carbon Dioxide 26 mmol/L (22-29); Chloride 84 mmol/L (98-107); Glucose 172 mg/dL (65-115); Osmolality Calculated 278 mOsm/kg (285-295); Potassium 3.7 mmol/L (3.5-5.1); Sodium 129 mmol/L (136-145)
[2023-08-04] MEDS: fluconazole premix 200 MG/100 ML PREMIX 60 MG IV (16:46)
[2023-08-04] MEDS: FUROsemide 10 mg/mL SDV 10mL 60 MG IVP (16:46)
[2023-08-04 17:22] LABS: Glucose Point of Care 166 mg/dL (70-110)
[2023-08-04] MEDS: insulin lispro 100 unit/1 mL SUBCUT (17:25)
--- NOTE | 2023-08-04 18:08 | PC.NURSE ---
Shift summary: Pt remains sedated and intubated for entire shift. Her FIO2 was increased to 60%. She still have Propofol and Fentanyl for sedation. Her A fib became uncontrolled this sift even after receiving Digoxin, so she was given a Amiodarone bolus then started on the gtt. It is now infusing at 0.5 mg/min. Levophed is still infsing, it was increased to 13mcg/min this shift. Nephrology was consulted for CYNTHIA, her urine output was only 125ml this shift. has been a bedside ,attentive.
[2023-08-04] MEDS: norepinephrine 4 MG/250 ML BAG 45 MG IV (18:59)
[2023-08-04 19:07] LABS: Basophils # 0.1 10^3/uL (0.0-0.1); Basophils % 0.6 %; Eosinophils # 0.2 10^3/uL (0.0-0.8); Eosinophils % 2.1 %; Hematocrit 22.7 % (36-47); Lymphocytes # 1.3 10^3/uL (0.8-4.8); Lymphocytes % 14.8 %; Mean Corpuscular HGB Conc 30.4 g/dL (30-55); Mean Corpuscular Volume 85.7 fl (85-98); Mean Platelet Volume 9.8 fL (7.4-10.4); Monocytes # 1.1 10^3/uL (0.2-0.9); Monocytes % 13.1 %; Neutrophils # 5.99 10^3/uL (1.8-7.7); Neutrophils % 68.7 %; Nucleated Red Blood Cells % 0 %; Platelet Count 220 10^3/cmm (157-399); Red Blood Count 2.65 10^6/uL (3.85-5.65); Red Cell Distribution Width 17.2 % (12.1-15.1); White Blood Count 8.71 10^3/uL (3.29-11.43)
--- NOTE | 2023-08-04 20:29 | P.CONIM_ITS ---
Providers/Reason For Consult 2 Consulting Physician/Specialty*: kommana/nephrology Reason for Consult*: Acute on ckd Attending Physician: Adriane Terry MD Primary Care Provider: Davion Griggs MD History of Present Illness History of Present Illness Myesha Parker is a 72 year old female Review of Systems 2 Narrative: cannot obtain Medications/Allergies Home Medications Medication Instructions Recorded Confirmed Last Taken Type acetaminophen 650 mg 650 mg PO Q4H PRN Pain 10/12/19 07/25/23 11/04/21 History tablet,extended release (Arthritis Pain Reliever) cholecalciferol (vitamin D3) 25 1,000 unit PO QAM 10/12/19 07/25/23 07/25/23 History mcg (1,000 unit) tablet (Vitamin D3) nitroglycerin 0.4 mg sublingual 0.4 mg sublingual Q5M PRN Chest 02/08/21 07/25/23 Unknown Rx tablet (Nitrostat) Pain #30 tabs chlorpheniramine maleate 4 mg See Rx Instructions .Route .COMPLEX 03/16/21 07/25/23 07/25/23 History tablet (ChlorTabs) cyanocobalamin (vitamin B-12) 500 500 mcg PO QAM 03/16/21 07/25/23 07/25/23 History mcg tablet (Vitamin B-12) diphenhydramine HCl 25 mg capsule See Rx Instructions .Route .COMPLEX 03/16/21 07/25/23 06/29/23 History (Benadryl) docusate sodium 250 mg capsule 250 mg PO QAM 03/16/21 07/25/23 07/25/23 History (Stool Softener) ferrous gluconate 324 mg (37.5 mg 324 mg PO DAILY@12 05/06/21 07/25/23 07/24/23 History iron) tablet calcium carbonate 600 mg calcium 600 mg PO DAILY@12 06/27/21 07/25/23 07/24/23 History (1,500 mg) tablet (Calcium) levothyroxine 150 mcg tablet 150 mcg PO QAM 06/27/21 07/25/23 07/25/23 History (Euthyrox) pantoprazole 40 mg tablet,delayed 40 mg PO BID 09/13/21 07/25/23 07/25/23 History release hydralazine 10 mg tablet 10 mg PO TID #270 tabs 08/08/23 11/29/23 11/29/23 06:30 Rx lisinopril 40 mg tablet 40 mg PO QPM #30 tabs 04/03/23 07/25/23 07/24/23 Rx magnesium L-lactate 84 mg 84 mg PO BID #180 tabs 04/03/23 07/25/23 07/25/23 Rx tablet,extended release pyridostigmine bromide 60 mg tablet 60 mg PO QAM 04/17/23 07/25/23 1 Week Ago History ~07/18/23 tramadol 50 mg tablet 50 mg PO TID 04/17/23 07/25/23 1 Week Ago History ~07/18/23 methotrexate sodium 2.5 mg tablet 15 mg (6 x 2.5 mg) PO Q7D #90 tabs 04/24/23 07/25/23 2 Weeks Ago Rx ~07/11/23 glucose 4 gram chewable tablet 4 g PO PRN PRN Hypoglycemia 06/17/23 07/25/23 Unknown History metoprolol succinate 100 mg 100 mg PO QAM 06/17/23 07/25/23 07/25/23 History tablet,extended release 24 hr fluticasone fur. 200 mcg-umeclid 1 inh inhalation DAILY #28 ea 06/20/23 07/25/23 06/30/23 Rx 62.5 mcg-vilant 25 mcg inhalat.powder (Trelegy Ellipta) adalimumab 40 mg/0.8 mL See Rx Instructions .Route 06/26/23 07/25/23 07/21/23 Rx subcutaneous pen kit (Humira Pen) .COMPLEX #2 ea atorvastatin 80 mg tablet 80 mg PO BEDTIME 07/25/23 07/25/23 07/24/23 History digoxin 125 mcg (0.125 mg) tablet See Rx Instructions .Route .COMPLEX 07/25/23 07/25/23 07/25/23 History 62.5mcg duloxetine 60 mg capsule,delayed 60 mg PO QAM 07/25/23 07/25/23 07/25/23 History release folic acid 1 mg tablet 1 mg PO QAM 07/25/23 07/25/23 07/25/23 History furosemide 20 mg tablet 20 mg PO QAM 07/25/23 07/25/23 07/25/23 History hydrocodone 7.5 mg-acetaminophen 1 tab PO TID 07/25/23 07/25/23 07/25/23 History 325 mg tablet insulin lispro 100 unit/mL See Rx Instructions .Route .COMPLEX 07/25/23 07/25/23 Unknown History subcutaneous pen levofloxacin 750 mg tablet 750 mg PO DAILY@17 07/25/23 07/25/23 07/24/23 History omega-3 fatty acids 1,000 mg 2,000 mg PO BEDTIME 07/25/23 07/25/23 07/24/23 History capsule potassium chloride 20 mEq 20 meq PO QAM 07/25/23 07/25/23 07/25/23 History tablet,extended release pyridoxine (vitamin B6) 500 mg 500 mg PO QAM 07/25/23 07/25/23 07/25/23 History tablet riboflavin (vitamin B2) 100 mg 100 mg PO QAM 07/25/23 07/25/23 07/25/23 History tablet (Vitamin B-2) zinc acetate 50 mg (zinc) capsule 50 mg PO DAILY@12 07/25/23 07/25/23 07/24/23 History Allergies Allergy/AdvReac Type Severity Reaction Status Date / Time adhesive tape Allergy rash Verified 06/30/23 17:49 cinnamon Allergy sinus Verified 06/30/23 17:49 codeine Allergy unknown Verified 06/30/23 17:49 cedar Allergy sinus Uncoded 06/30/23 17:49 pine Allergy sinus Uncoded 06/30/23 17:49 pork food Allergy ADR-Nausea Uncoded 06/30/23 17:49 Current Medications Generic Name Dose Route Start Last Admin Trade Name Freq PRN Reason Stop Dose Admin Acetaminophen 650 mg 07/25/23 18:56 07/28/23 12:19 Acetaminophen 325 Mg Tablet PO 650 mg Q6H PRN Administration Mild/Mod Pain Or Temp >/= 101 Albuterol/Ipratropium 3 ml 07/25/23 20:00 08/04/23 19:22 Ipratropium-Albuterol 3 Ml Neb INHALATION 3 ml QID.RESPIRATORY JOCE Administration Atorvastatin Calcium 80 mg 07/25/23 21:00 08/02/23 21:50 Atorvastatin 40 Mg Tablet PO 80 mg BEDTIME JOCE Administration Bumetanide 1 mg 08/03/23 15:00 08/04/23 09:28 Bumetanide 0.25 Mg/Ml Sdv 4 Ml IVP 1 mg TID JOCE Administration Chlorhexidine Gluconate 15 ml 08/02/23 18:00 08/04/23 17:30 Chlorhexidine Gluconate 0.12% Btl 473 Ml MUCOUS MEM 15 ml BID JOCE Administration Chlorhexidine Gluconate 1 applic 08/04/23 01:00 08/04/23 09:18 Chlorhexidine Gluconate 4% Btl 118 Ml TOPICAL Not Given DAILY JOCE Duloxetine HCl 60 mg 07/26/23 06:00 08/04/23 06:13 Duloxetine 60 Mg Capsule PO 60 mg QAM JOCE Administration Hydralazine HCl 25 mg 07/28/23 21:00 08/01/23 20:08 Hydralazine 25 Mg Tablet PO 25 mg TID JOCE Administration Trimethoprim/Sulfamethoxazole 450 mls @ 450 mls/hr 07/31/23 22:00 08/04/23 15:12 480 mg/ Dextrose IV Infused Q8H JOCE Infusion Propofol 1,000 mg in 100 mls @ 0 mls/hr 08/02/23 09:00 08/04/23 17:40 Diprivan IV 35 mcg/kg/min .Q0M JOCE 23.01 mls/hr Administration Protocol Per Protocol Fentanyl 1,000 mcg in 100 mls @ 0 mls/hr 08/02/23 09:15 08/04/23 13:37 Sublimaze IV 110 mcg/hr .Q0M JOCE 11 mls/hr Administration Protocol Per Protocol norepinephrine 4 mg in 250 mls @ 0 mls/hr 08/02/23 11:15 08/04/23 19:18 Levophed IV 11 mcg/min .Q0M JOCE 41.25 mls/hr Titration Protocol Per Protocol Fluconazole 200 mg in 100 mls @ 100 mls/hr 08/03/23 16:30 08/04/23 18:35 Diflucan Premix IV Infused Q24H JOCE Infusion Amiodarone HCl/Dextrose 360 mg in 200 mls @ 0 mls/hr 08/04/23 09:29 08/04/23 17:26 Nexterone IV 0.5 mg/min .Q0M JOCE 16.67 mls/hr Administration Protocol Per Protocol Insulin Human Lispro 0 unit 08/03/23 12:00 08/04/23 17:25 Insulin Lispro 100 Unit/1 Ml SUBCUT 6 unit Q6H JOCE Administration Protocol Levothyroxine Sodium 150 mcg 07/26/23 06:00 08/04/23 06:13 Levothyroxine 150 Mcg Tablet PO 150 mcg QAM JOCE Administration Lidocaine 1 patch 07/29/23 12:11 08/04/23 09:28 Lidocaine 5% Patch TOPICAL 1 patch [id number] JOCE Administration Metoprolol Tartrate 75 mg 07/28/23 09:00 08/01/23 20:16 Metoprolol Tartrate 50 Mg Tablet PO 75 mg BID@0900,2100 JOCE Administration Nystatin 1 applic 08/03/23 18:00 08/04/23 17:30 Nystatin Powder 15 Gm Btl TOPICAL 1 applic BID JOCE Administration Pantoprazole Sodium 40 mg 08/04/23 18:00 08/04/23 17:26 Pantoprazole 40 Mg Sdv IVP 40 mg BID JOCE Administration Pyridostigmine Dumas 60 mg 07/26/23 06:00 08/04/23 06:13 Pyridostigmine 60 Mg Tablet PO 60 mg QAM JOCE Administration PFSH Acute 2 PFSH: Medical History Major depressive disorder, recurrent episode, moderate with anxious distress Duodenal ulcer due to bacteria Psychiatric care Coronary artery disease Immunization counseling High risk medication use Chronic knee pain Chronic low back pain COVID-14 August 2020 Seronegative rheumatoid arthritis of both hands Intermittent atrial fibrillation Poorly controlled diabetes mellitus UTI (urinary tract infection) CHF exacerbation Narrow complex tachycardia Inflammatory arthritis Osteoarthritis of knees, bilateral Fibromyalgia Lung nodule Unstable angina Low back pain of over 3 months duration Urgency incontinence Left renal mass COPD (chronic obstructive pulmonary disease) Oxygen dependent, 2 L at baseline Anxiety and depression Hypothyroidism Liver cirrhosis Hyperlipidemia Hypertension Recurrent UTI Surgical History History of cholecystectomy History of thyroid surgery History of cardiac cath History of hysterectomy History of knee replacement Family History Other CAD (coronary artery disease) Cancer Denies family history of Anesthesia complication Bleeding disorder Social History Smoking and tobacco/nicotine status: former use of tobacco/nicotine Quit status (tobacco/nicotine): has quit using Year quit tobacco: 2005 Second hand smoke exposure: No Alcohol intake: never Substance/Drug Use: never Adopted: No Caregiver/support person: No Lives independently: No Household members: spouse Marital status: Current occupational status: retired Current gender identity: Female Vitals/I&O/Wt Last Vital Signs Temp 99.5 F 08/04/23 13:30 Pulse 118 H 08/04/23 19:33 Resp 14 08/04/23 19:24 BP 99/52 08/04/23 19:00 Pulse Ox 93 08/04/23 19:24 O2 Del Method Mechanical Ventilation 08/04/23 19:22 O2 Flow Rate 6 08/02/23 08:20 FiO2 60 08/04/23 19:24 08/04/23 08/04/23 08/04/23 06:59 14:59 22:59 Intake Total 892.225 / 2765.986 1108.558 / 7886.737 9281.25 / 2222.808 Output Total 1580 / 1955 125 / 125 Balance -687.775 / 119.629 0417.558 / 1108.558 989.25 / 2097.808 Weight last 48 hrs Weight 109.225 kg Weight 105.687 kg Physical Exam 2 Narrative: intubated , sedated Urinary Catheter Management: Amnzanares Latex: Cath Placed During This Visit: yes, but has since been removed by the nurse Reason for Continuing Indwelling Catheter: Accurate Measurement of Urinary Output in Critically Ill Patients Urinary Catheter Date of Insertion: 07/27/23 Urinary Catheter Time of Insertion: 19:45 Date Urinary Catheter Removed: 08/03/23 Time Urinary Catheter Discontinued: 14:30 Manzanares: Cath Placed During This Visit: no Reason for Continuing Indwelling Catheter: Accurate Measurement of Urinary Output in Critically Ill Patients Data 08/04/23 18:30 08/04/23 15:18 Micro: Microbiology 08/02/23 09:10 Gram Stain - Final Sputum - Endotracheal Tube Aspirate Sputum Culture - Final 08/03/23 23:51 Blood Culture - Preliminary Blood SPECIMEN COLLECTED 08/03/23 23:45 Blood Culture - Preliminary Blood SPECIMEN COLLECTED 08/02/23 10:10 Blood Culture - Preliminary Blood Staphylococcus species A&P Assessment and plan (1) CYNTHIA (acute kidney injury): Consult Attestations 2 Medical Necessity Statement: needs ICU stay Coding Level of Care Code Acute Code for Chg Fwd Diagnoses CYNTHIA (acute kidney injury) N17.9
[2023-08-04 20:57] LABS: Glucose Point of Care 149 mg/dL (70-110)
--- NOTE | 2023-08-04 21:00 | PC.NURSE ---
Tape on oral gastric tube became detached from ETT. CXR ordered to verify placement. Tube is clamped pending placement verification.
--- NOTE | 2023-08-04 21:48 | XRR_ITS ---
PROCEDURE INFORMATION: Exam: XR Chest Exam date and time: 08/04/2023 11:31 PM Age: 72 years old Clinical indication: Device placement; Prior surgery; Surgery date: 6+ months; Surgery type: Thyroid; Patient HX: Check S/P ng tube adjustment; Additional info: For n placement TECHNIQUE: Imaging protocol: Radiologic exam of the chest. Views: 1 view. COMPARISON: CT angio chest PE protcl [id number] 08/02/2023 10:34 PM FINDINGS: Tubes, catheters and devices: Nasogastric tube with side hole likely near the gastroesophageal junction and tip in the stomach. Right IJ CVC with tip near the lower SVC. Endotracheal tube with tip in the midthoracic trachea. Lungs: See Pleural spaces finding. Pleural spaces: Bilateral pleural effusions and opacities. Heart/Mediastinum: Unchanged cardiomegaly. Bones/joints: No acute abnormality. XR/XR chest 1V portable [id number] IMPRESSION: 1. Nasogastric tube with side hole likely near the gastroesophageal junction and tip in the stomach. 2. Similar bilateral pleural effusions and opacities, better characterized on recent CT chest.
[2023-08-05] VITALS (71 sets, daily range): BP systolic 76–149; BP diastolic 39–96; PULSE 93–129; RESP 14–39; TEMP 36.8–37.4; O2SAT 89–100
[2023-08-05] MEDS: norepinephrine 4 MG/250 ML BAG 45 MG IV ×3 (00:27→16:47)
[2023-08-05] MEDS: insulin lispro 100 unit/1 mL SUBCUT ×3 (00:34→23:14)
[2023-08-05 01:23] LABS: Glucose Point of Care 172 mg/dL (70-110)
[2023-08-05] MEDS: propofol 1,000 MG/100 ML INJ 26.3 MG IV (01:40)
[2023-08-05 04:03] LABS: Basophils # 0.1 10^3/uL (0.0-0.1); Basophils % 0.6 %; Eosinophils # 0.1 10^3/uL (0.0-0.8); Eosinophils % 1.5 %; Hematocrit 21.4 % (36-47); Lymphocytes # 1.3 10^3/uL (0.8-4.8); Lymphocytes % 16.2 %; Mean Corpuscular HGB Conc 30.8 g/dL (30-55); Mean Corpuscular Hemoglobin 25.8 pg (27-33); Mean Corpuscular Volume 83.6 fl (85-98); Mean Platelet Volume 9.3 fL (7.4-10.4); Monocytes % 12.3 %; Neutrophils # 5.54 10^3/uL (1.8-7.7); Nucleated Red Blood Cells % 0 %; Platelet Count 201 10^3/cmm (157-399); Red Blood Count 2.56 10^6/uL (3.85-5.65); Red Cell Distribution Width 17.1 % (12.1-15.1); White Blood Count 8.03 10^3/uL (3.29-11.43)
[2023-08-05 04:20] LABS: Alanine Aminotransferase 14 U/L (0-33); Albumin Level 2.8 g/dL (3.5-5.2); Alkaline Phosphatase 83 U/L (35-105); Anion Gap 19.9 (5-19); Aspartate Amino Transferase 38 U/L (0-32); Blood Urea Nitrogen 30 mg/dL (8-23); Calcium 7.8 mg/dL (8.5-10.5); Carbon Dioxide 29 mmol/L (22-29); Chloride 79 mmol/L (98-107); Globulin 2.7 g/dL (1.3-4.6); Glucose 141 mg/dL (65-115); Osmolality Calculated 267 mOsm/kg (285-295); Phosphorus 5.9 mg/dL (2.5-4.5); Potassium 3.9 mmol/L (3.5-5.1); Sodium 124 mmol/L (136-145); Total Bilirubin 0.2 mg/dL (0.15-1.2); Total Protein 5.5 g/dL (6.6-8.7)
[2023-08-05 04:21] LABS: ABG PCO2 51.3 mmHg (35-45); ABG PH Result 7.42 (7.35-7.45); Alveolar-Arterial Oxygen Gradi 28.2 mmHg (5-10); Arterial Blood Gas Hematocrit 20.1 % (37-47); Blood Gas Allen Test Pos; Blood Gas Operator Identificat CAK; Blood Gas Sample Site Brachial, left; Blood Gas Sample Type Arterial; Carboxyhemoglobin 1.4 %THgb (0.4-20.1); HCO3 ABG 33.3 mmol/L (22-26); HGB O2 Sat 92.2 % (95-100); Ionized Calcium Level - ABG 1.1 mmol/L (1.1-1.4); Methemoglobin 1.3 % (0.4-1.5); Oxygen Device VENT; Oxygen Saturation ABG 94.8; PO2 ABG 78.7 mmHg (80.0-100.0); PO2 FiO2 Ratio Arterial Blood 0; Potassium Level - ABG 3.7 mmol/L (3.5-5.0); Total Hemoglobin 6.5 g/dL (12-16)
[2023-08-05] MEDS: propofol 1,000 MG/100 ML INJ 23.01 MG IV ×3 (05:17→14:17)
[2023-08-05] MEDS: levothyroxine 150 mcg Tablet PO (05:29)
[2023-08-05] MEDS: duloxetine 60 mg Capsule PO (05:29)
[2023-08-05] MEDS: pyridostigmine 60 mg Tablet PO (05:29)
[2023-08-05 05:52] LABS: Glucose Point of Care 142 mg/dL (70-110)
[2023-08-05] MEDS: ipratropium-albuterol 3 mL Neb INHALATION ×4 (07:28→19:40)
[2023-08-05 08:20] LABS: Hepatitis B Surface AB < 3.5 (11.5-1000); Hepatitis B Surface Antigen Non-Reactive (Nonreactive)
[2023-08-05] MEDS: pantoprazole 40 mg SDV IVP ×2 (08:41→17:38)
[2023-08-05] MEDS: lidocaine 5% Patch 1 PATCH TOPICAL (08:42)
[2023-08-05] MEDS: nystatin powder 15 gm Btl 1 APPLIC TOPICAL ×2 (08:43→17:39)
[2023-08-05] MEDS: chlorhexidine gluconate 0.12% Btl 473 mL 15 ML MUCOUS MEM ×2 (08:43→17:39)
[2023-08-05] MEDS: chlorhexidine gluconate 4% Btl 118 mL 1 APPLIC TOPICAL ×2 (08:43→22:46)
--- NOTE | 2023-08-05 08:55 | XRR_ITS ---
PROCEDURE INFORMATION: Exam: XR Chest Exam date and time: 08/05/2023 10:29 AM Age: 72 years old Clinical indication: Shortness of breath; Additional info: Hypoxia TECHNIQUE: Imaging protocol: Radiologic exam of the chest. Views: 1 view. COMPARISON: CR (CHEST, ) 08/04/2023 11:31 PM FINDINGS: Tubes, catheters and devices: ETT terminates 5 cm above the humberto. Right central line terminates in the low SVC. NG tube courses into the stomach and off the field of view. Lungs: Slightly increased edema and/or pneumonitis in the left lung. Unchanged left basilar atelectasis. Slightly decreased right lung edema and/or pneumonitis. Pleural spaces: Unchanged large right pleural effusion and moderate left pleural effusion. No pneumothorax. Heart/Mediastinum: Unchanged cardiomegaly. Bones/joints: Unchanged multilevel spondylosis. XR/XR chest 1V portable [id number] IMPRESSION: As above.
[2023-08-05] MEDS: fentaNYL 1,000 MCG/100 ML BAG 10 MCG IV ×2 (09:55→22:10)
--- NOTE | 2023-08-05 10:12 | PM.CONSULT ---
Providers/Reason For Consult Consulting Physician/Specialty*: Dr. Samuel Baxter, DO/General surgery Reason for Consult*: Requesting hemodialysis catheter placement Attending Physician: Adriane Terry MD Primary Care Provider: Davion Griggs MD History of Present Illness History of Present Illness Myesha Parker is a 72 year old female who presents to the hospital due to increasing difficulty in breathing. She has a history of CHF and COPD. She is currently being treated for both. She denies any pain. She is found to be in acute on chronic renal disease. Nephrology is asked for a temporary hemodialysis catheter to be placed. Patient is currently intubated and sedated. HPI and review of systems are limited secondary to this Review of Systems General: Reports: ROS unobtainable due to medical condition Medications/Allergies Home Medications Medication Instructions Recorded Confirmed Last Taken Type acetaminophen 650 mg 650 mg PO Q4H PRN Pain 10/12/19 07/25/23 11/04/21 History tablet,extended release (Arthritis Pain Reliever) cholecalciferol (vitamin D3) 25 1,000 unit PO QAM 10/12/19 07/25/23 07/25/23 History mcg (1,000 unit) tablet (Vitamin D3) nitroglycerin 0.4 mg sublingual 0.4 mg sublingual Q5M PRN Chest 02/08/21 07/25/23 Unknown Rx tablet (Nitrostat) Pain #30 tabs chlorpheniramine maleate 4 mg See Rx Instructions .Route .COMPLEX 03/16/21 07/25/23 07/25/23 History tablet (ChlorTabs) cyanocobalamin (vitamin B-12) 500 500 mcg PO QAM 03/16/21 07/25/23 07/25/23 History mcg tablet (Vitamin B-12) diphenhydramine HCl 25 mg capsule See Rx Instructions .Route .COMPLEX 03/16/21 07/25/23 06/29/23 History (Benadryl) docusate sodium 250 mg capsule 250 mg PO QAM 03/16/21 07/25/23 07/25/23 History (Stool Softener) ferrous gluconate 324 mg (37.5 mg 324 mg PO DAILY@12 05/06/21 07/25/23 07/24/23 History iron) tablet calcium carbonate 600 mg calcium 600 mg PO DAILY@12 06/27/21 07/25/23 07/24/23 History (1,500 mg) tablet (Calcium) levothyroxine 150 mcg tablet 150 mcg PO QAM 06/27/21 07/25/23 07/25/23 History (Euthyrox) pantoprazole 40 mg tablet,delayed 40 mg PO BID 09/13/21 07/25/23 07/25/23 History release hydralazine 10 mg tablet 10 mg PO TID #270 tabs 04/03/23 07/25/23 07/25/23 06:30 Rx lisinopril 40 mg tablet 40 mg PO QPM #30 tabs 04/03/23 07/25/23 07/24/23 Rx magnesium L-lactate 84 mg 84 mg PO BID #180 tabs 04/03/23 07/25/23 07/25/23 Rx tablet,extended release pyridostigmine bromide 60 mg tablet 60 mg PO QAM 04/17/23 07/25/23 1 Week Ago History ~07/18/23 tramadol 50 mg tablet 50 mg PO TID 04/17/23 07/25/23 1 Week Ago History ~07/18/23 methotrexate sodium 2.5 mg tablet 15 mg (6 x 2.5 mg) PO Q7D #90 tabs 04/24/23 07/25/23 2 Weeks Ago Rx ~07/11/23 glucose 4 gram chewable tablet 4 g PO PRN PRN Hypoglycemia 06/17/23 07/25/23 Unknown History metoprolol succinate 100 mg 100 mg PO QAM 06/17/23 07/25/23 07/25/23 History tablet,extended release 24 hr fluticasone fur. 200 mcg-umeclid 1 inh inhalation DAILY #28 ea 06/20/23 07/25/23 06/30/23 Rx 62.5 mcg-vilant 25 mcg inhalat.powder (Trelegy Ellipta) adalimumab 40 mg/0.8 mL See Rx Instructions .Route 06/26/23 07/25/23 07/21/23 Rx subcutaneous pen kit (Humira Pen) .COMPLEX #2 ea atorvastatin 80 mg tablet 80 mg PO BEDTIME 07/25/23 07/25/23 07/24/23 History digoxin 125 mcg (0.125 mg) tablet See Rx Instructions .Route .COMPLEX 07/25/23 07/25/2323 History 62.5mcg duloxetine 60 mg capsule,delayed 60 mg PO QAM 07/25/23 07/25/23 07/25/23 History release folic acid 1 mg tablet 1 mg PO QAM 07/25/23 07/25/23 07/25/23 History furosemide 20 mg tablet 20 mg PO QAM 07/25/23 07/25/23 07/25/23 History hydrocodone 7.5 mg-acetaminophen 1 tab PO TID 07/25/23 07/25/23 07/25/23 History 325 mg tablet insulin lispro 100 unit/mL See Rx Instructions .Route .COMPLEX 07/25/23 07/25/23 Unknown History subcutaneous pen levofloxacin 750 mg tablet 750 mg PO DAILY@17 07/25/23 07/25/23 07/24/23 History omega-3 fatty acids 1,000 mg 2,000 mg PO BEDTIME 07/25/23 07/25/23 07/24/23 History capsule potassium chloride 20 mEq 20 meq PO QAM 07/25/23 07/25/23 07/25/23 History tablet,extended release pyridoxine (vitamin B6) 500 mg 500 mg PO QAM 07/25/23 07/25/23 07/25/23 History tablet riboflavin (vitamin B2) 100 mg 100 mg PO QAM 07/25/23 07/25/23 07/25/23 History tablet (Vitamin B-2) zinc acetate 50 mg (zinc) capsule 50 mg PO DAILY@12 07/25/23 07/25/23 07/24/23 History atovaquone 750 mg/5 mL oral 750 mg (5 mL) PO BID #210 mL 08/07/23 Unknown Rx suspension Allergies Allergy/AdvReac Type Severity Reaction Status Date / Time adhesive tape Allergy rash Verified 06/30/23 17:49 cinnamon Allergy sinus Verified 06/30/23 17:49 codeine Allergy unknown Verified 06/30/23 17:49 cedar Allergy sinus Uncoded 06/30/23 17:49 pine Allergy sinus Uncoded 06/30/23 17:49 pork food Allergy ADR-Nausea Uncoded 06/30/23 17:49 Current Medications Generic Name Dose Route Start Last Admin Trade Name Freq PRN Reason Stop Dose Admin Acetaminophen 650 mg 07/25/23 18:56 07/28/23 12:19 Acetaminophen 325 Mg Tablet PO 650 mg Q6H PRN Administration Mild/Mod Pain Or Temp >/= 101 Albuterol/Ipratropium 3 ml 07/25/23 20:00 08/05/23 19:40 Ipratropium-Albuterol 3 Ml Neb INHALATION 3 ml QID.RESPIRATORY JOCE Administration Atorvastatin Calcium 80 mg 07/25/23 21:00 08/05/23 20:12 Atorvastatin 40 Mg Tablet PO 80 mg BEDTIME JOCE Administration Bumetanide 1 mg 08/03/23 15:00 08/04/23 09:28 Bumetanide 0.25 Mg/Ml Sdv 4 Ml IVP 1 mg TID JOCE Administration Chlorhexidine Gluconate 15 ml 08/02/23 18:00 08/05/23 17:39 Chlorhexidine Gluconate 0.12% Btl 473 Ml MUCOUS MEM 15 ml BID JOCE Administration Chlorhexidine Gluconate 1 applic 08/05/23 22:00 08/05/23 22:48 Chlorhexidine Gluconate 4% Btl 118 Ml TOPICAL Not Given Q24H JOCE Duloxetine HCl 60 mg 07/26/23 06:00 08/06/23 05:50 Duloxetine 60 Mg Capsule PO 60 mg QAM JOCE Administration Heparin Sodium (Porcine) 10,000 unit 08/05/23 13:25 08/05/23 15:41 Heparin, Porcine 1,000 Unit/Ml Inj 10 Ml INTRACATH 10,000 unit PRN PRN Administration HD CATH Heparin Sodium (Porcine) 1,000 unit 08/05/23 13:26 08/05/23 14:14 Heparin, Porcine 1,000 Unit/Ml Inj 10 Ml IV 1,000 unit PRN PRN Administration HD IV Hydralazine HCl 25 mg 07/28/23 21:00 08/01/23 20:08 Hydralazine 25 Mg Tablet PO 25 mg TID JOCE Administration Propofol 1,000 mg in 100 mls @ 0 mls/hr 08/02/23 09:00 08/06/23 06:37 Diprivan IV 25 mcg/kg/min .Q0M JOCE 16.44 mls/hr Administration Protocol Per Protocol Fentanyl 1,000 mcg in 100 mls @ 0 mls/hr 08/02/23 09:15 08/06/23 07:09 Sublimaze IV 50 mcg/hr .Q0M JOCE 5 mls/hr Administration Protocol Per Protocol norepinephrine 4 mg in 250 mls @ 0 mls/hr 08/02/23 11:15 08/06/23 03:40 Levophed IV 7 mcg/min .Q0M JOCE 26.25 mls/hr Titration Protocol Per Protocol Fluconazole 200 mg in 100 mls @ 100 mls/hr 08/03/23 16:30 08/05/23 17:31 Diflucan Premix IV Infused Q24H JOCE Infusion Amiodarone HCl/Dextrose 360 mg in 200 mls @ 0 mls/hr 08/04/23 09:29 08/06/23 06:38 Nexterone IV 0.5 mg/min .Q0M JOCE 16.67 mls/hr Administration Protocol Per Protocol Piperacillin Sod/Tazobactam 50 mls @ 12.5 mls/hr 08/05/23 16:00 08/06/23 04:10 Sod 3.375 gm/ Sodium Chloride IV 12.5 mls/hr Q12H JOCE Administration Protocol Vancomycin/PEG/NADA/Lysine/Water 1,250 mg in 250 mls @ 250 mls/hr 08/05/23 14:30 08/05/23 17:32 Vancocin IV Infused Q48H JOCE Infusion Insulin Human Lispro 0 unit 08/03/23 12:00 08/06/23 05:56 Insulin Lispro 100 Unit/1 Ml SUBCUT Not Given Q6H [facility] Protocol Levothyroxine Sodium 150 mcg 07/26/23 06:00 08/06/23 05:50 Levothyroxine 150 Mcg Tablet PO 150 mcg QAM [facility] Administration Lidocaine 1 patch 07/29/23 12:11 08/05/23 22:48 Lidocaine 5% Patch TOPICAL Not Given [id number] [facility] Metoprolol Tartrate 75 mg 07/28/23 09:00 08/01/23 20:16 Metoprolol Tartrate 50 Mg Tablet PO 75 mg BID@0900,2100 [facility] Administration Nystatin 1 applic 08/03/23 18:00 08/05/23 17:39 Nystatin Powder 15 Gm Btl TOPICAL 1 applic BID JOCE Administration Pantoprazole Sodium 40 mg 08/04/23 18:00 08/05/23 17:38 Pantoprazole 40 Mg Sdv IVP 40 mg BID JOCE Administration Pyridostigmine [place] 60 mg 07/26/23 06:00 08/06/23 05:50 Pyridostigmine 60 Mg Tablet PO 60 mg QAM JOCE Administration Sodium Chloride 50 ml 08/05/23 08:55 08/05/23 12:22 Sodium Chloride 0.9% 100 Ml Bag IV 08/06/23 08:55 50 ml PRN PRN Administration Blood transfusion prime and flush PFSH Acute PFSH: Medical History Major depressive disorder, recurrent episode, moderate with anxious distress Duodenal ulcer due to bacteria Psychiatric care Coronary artery disease Immunization counseling High risk medication use Chronic knee pain Chronic low back pain COVID-14 August 2020 Seronegative rheumatoid arthritis of both hands Intermittent atrial fibrillation Poorly controlled diabetes mellitus UTI (urinary tract infection) CHF exacerbation Narrow complex tachycardia Inflammatory arthritis Osteoarthritis of knees, bilateral Fibromyalgia Lung nodule Unstable angina Low back pain of over 3 months duration Urgency incontinence Left renal mass COPD (chronic obstructive pulmonary disease) Oxygen dependent, 2 L at baseline Anxiety and depression Hypothyroidism Liver cirrhosis Hyperlipidemia Hypertension Recurrent UTI Surgical History History of cholecystectomy History of thyroid surgery History of cardiac cath History of hysterectomy History of knee replacement Family History Other CAD (coronary artery disease) Cancer Denies family history of Anesthesia complication Bleeding disorder Social History Smoking and tobacco/nicotine status: former use of tobacco/nicotine Quit status (tobacco/nicotine): has quit using Year quit tobacco: 2005 Second hand smoke exposure: No Alcohol intake: never Substance/Drug Use: never Adopted: No Caregiver/support person: No Lives independently: No Household members: spouse Marital status: Current occupational status: retired Current gender identity: Female Vitals/I&O/Wt Last Vital Signs Temp 98.7 F 08/06/23 04:15 Pulse 102 H 08/06/23 06:15 Resp 14 08/06/23 04:00 BP 107/58 08/06/23 06:15 Pulse Ox 93 08/06/23 06:15 O2 Del Method Mechanical Ventilation 08/06/23 04:15 O2 Flow Rate 6 08/02/23 08:20 FiO2 35 08/06/23 04:15 08/05/23 08/06/23 08/06/23 22:59 06:59 14:59 Intake Total 1512.139 / 2886.264 685.792 / 3572.056 21.208 / 21.208 Output Total 3212 / 3212 100 / 3312 Balance -1699.861 / -325.736 585.792 / 260.056 21.208 / 21.208 Weight last 48 hrs Weight 251 lb 4.8 oz Weight 251 lb 4.8 oz Physical Exam Narrative: General : Patient is well developed , no acute distress, Head : Normal cephalic, a-traumatic. Ears : Pinnae and external canal are normal. Hearing is normal. Eyes : PERRLA, Sclera and injection are normal. No conjunctival discharge. Nose : Mucous membranes are without erythema. Throat : buccal mucosa is normal, gums are without significant recession or hypertrophy. Lungs : Equal chest rise bilaterally, no use of accessory muscles, trachea is midline. Cor : Rate and rhythm are normal. Abdomen : Soft, ND, NT, no g/r/m Extremities : No edema, no cyanosis or clubbing, dorsalis pedis pulses are present bilaterally, non-tender to palpation of calves. Upper extremities are normal bilaterally. Back : non-tender to palpation, no CVA tenderness. Urinary Catheter Management: Manzanares Latex: Cath Placed During This Visit: yes, but has since been removed by the nurse Reason for Continuing Indwelling Catheter: Accurate Measurement of Urinary Output in Critically Ill Patients Urinary Catheter Date of Insertion: 07/27/23 Urinary Catheter Time of Insertion: 19:45 Date Urinary Catheter Removed: 08/03/23 Time Urinary Catheter Discontinued: 14:30 Manzanares: Cath Placed During This Visit: no Reason for Continuing Indwelling Catheter: Accurate Measurement of Urinary Output in Critically Ill Patients Data 08/06/23 03:36 08/07/23 08:33 Micro: Microbiology 07/30/23 11:20 M. tuberculosis Complex (PCR) - Final Sputum - Expectorated Sputum MTB Complex and Rifampin Resistance - Final 08/04/23 19:30 Gram Stain - Final Sputum - Endotracheal Tube Aspirate 08/02/23 11:32 Urine Culture - Final Urine Catheterized Amber albicans A&P Assessment and plan (1) CYNTHIA (acute kidney injury): Plan Temporary hemodialysis catheter placement The risks and benefits of the procedure, including but not limited to, bleeding, infection, infection requiring Mediport removal antibiotic therapy and repeat surgery, damage to surrounding structures, scar, numbness, pain, pneumothorax requiring thoracostomy tube, were explained to the patientS . He is understanding of the risks and wishes to proceed. Coding Level of Care Code 79733 Diagnoses CYNTHIA (acute kidney injury) N17.9
[2023-08-05] MEDS: norepinephrine 4 MG/250 ML BAG 37.5 MG IV (10:58)
[2023-08-05 11:09] LABS: Glucose Point of Care 148 mg/dL (70-110)
[2023-08-05] MEDS: sodium chloride 0.9% 100 mL Bag 50 ML IV (12:22)
[2023-08-05 12:23] LABS: Glucose Point of Care 128 mg/dL (70-110)
--- NOTE | 2023-08-05 12:34 | P.PCN_ITS ---
Procedure Note: Procedure: Preoperative diagnosis: Acute renal failure requiring emergent dialysis Postoperative diagnosis: Same Procedure: Placement of Mahurkar catheter in the right femoral vein Surgeon: Dr. Samuel Baxter, DO Anesthesia: Local Description of procedure: The patient's right groin was prepped and draped in a sterile manner. 5 mL of 1% lidocaine was infiltrated at the site of planned entry, an introducer needle was used to access the right femoral vein. Guidewire was passed through the introducer needle and the introducer needle was removed. Serial dilators were passed over the guidewire after the skin incision was extended using 11 blade and Mahurkar catheter was then passed over the dasia dewire and the guidewire was removed. The catheter was sutured to the skin using 2-0 Ethilon suture. Sterile dressings were applied. Coding Level of Care Code Acute Code for Chg Fwd
--- NOTE | 2023-08-05 13:56 | PM.PN ---
Subjective Subjective: Patient is oliguric. Urine output 475 last 24 hours. Hemoglobin 6.6 today. FiO2 40%, sodium 124, creatinine 3.9, lactic acid 3.6, phosphorus 5.9. Hepatitis panel negative. Echocardiogram resulted. Poor study. pcp result still not back. Patient is intubated sedated, on 10 of Levophed, amiodarone drip running. at bedside. Updated in detail. He gave consent for dialysis catheter to be placed. Vitals/I&O/Wt Last Vital Signs Temp 98.8 F 08/05/23 12:13 Pulse 102 H 08/05/23 12:13 Resp 39 H 08/05/23 12:13 BP 126/64 08/05/23 12:13 Pulse Ox 92 08/05/23 12:13 O2 Del Method Mechanical Ventilation 08/05/23 11:36 O2 Flow Rate 6 08/02/23 08:20 FiO2 40 08/05/23 11:36 08/04/23 08/05/23 08/05/23 22:59 06:59 14:59 Intake Total 1518.068 / 2626.626 1236.407 / 3863.033 875.00 / 875.00 Output Total 125 / 125 350 / 475 Balance 1393.068 / 2501.626 886.407 / 3388.033 875.00 / 875.00 Weight last 48 hrs Weight 109.225 kg Physical Exam Narrative: PHYSICAL EXAM: General: lying in bed, sedated and intubated. HEENT:NCAT, PERRLA, Lungs: Diffuse crackles and rhonchi bilaterally throughout lung hatch Heart: s1/s2, irregularly irregular, tachycardic Abd: soft, NT, ND, BS + Normoactive Extremities: No edema [facility] [employer] [facility] HOME: sedated, intubated LDA: # CVC: Right internal jugular vein 08/02/2023 # Manzanares: Yes Urinary Catheter Management: Manzanares Latex: Cath Placed During This Visit: yes, but has since been removed by the nurse Reason for Continuing Indwelling Catheter: Accurate Measurement of Urinary Output in Critically Ill Patients Urinary Catheter Date of Insertion: 07/27/23 Urinary Catheter Time of Insertion: 19:45 Date Urinary Catheter Removed: 08/03/23 Time Urinary Catheter Discontinued: 14:30 Manzanares: Cath Placed During This Visit: no Reason for Continuing Indwelling Catheter: Accurate Measurement of Urinary Output in Critically Ill Patients Data 08/05/23 03:45 08/05/23 03:45 Micro: Microbiology 08/03/23 23:51 Blood Culture - Preliminary Blood NEGATIVE TO DATE 08/03/23 23:45 Blood Culture - Preliminary Blood NEGATIVE TO DATE 08/02/23 09:10 Gram Stain - Final Sputum - Endotracheal Tube Aspirate Sputum Culture - Final A&P Assessment and plan (1) COPD (chronic obstructive pulmonary disease): Qualifiers: COPD type: unspecified COPD Qualified Code(s): J44.9 - Chronic obstructive pulmonary disease, unspecified (2) Acute and chronic respiratory failure with hypoxia: (3) PNA (pneumonia): (4) Pleural effusion: (5) CHF (congestive heart failure): acute on chronic with preserved EF Qualifiers: Heart failure type: diastolic Heart failure chronicity: acute on chronic Qualified Code(s): I50.33 - Acute on chronic diastolic (congestive) heart failure (6) Ventilator dependence: (7) Respiratory failure: (8) Acute respiratory failure with hypoxia and hypercarbia: (9) Respiratory acidosis: (10) Multiorgan failure: Plan 72-year-old lady with COPD, CHF, currently admitted to the hospital with acute on chronic hypoxic respiratory failure with multiple recent hospital admissions for the same reason. Recent chest x-rays and CAT scans have shows bilateral infiltrates which may represent pneumonic infiltrates versus pulmonary edema. pending sputum culture evaluation ongoing for opportunistic pneumonia while remaining on emepric zosyn. SHe has had levaquin as outpatient recently, less likely atypical infection. AFB smear negative x 1 ,pending 2 ; MTB PCR pending pending serum beta glucan, serum Aspergillus galactomannan, PCP PCR, MTB PCR and AFB culture x3. Prior QuantiFERON screening from 2019 was negative. pending more recent QuantiFERON now. Previous PPD positive per patient these were reportedly determined to be false positives pending histoplasma and Coccidioides serology. Patient denies any history of recent travel. She has noted to have bilateral pleural effusions additionally, thoracentesis was attempted on her most recent admission for diagnostic purposes, however there was insufficient fluid to proceed. b-d glucan weakly positive. negative respiratory viral panel. Echocardiogram from July 01, 2023 showed normal left ventricular size systolic function and wall thickness without regional wall motion abnormalities. LVEF of 65%. Aortic valve sclerosis without stenosis. #Vent dependent repiratory failure #Multiorgan failure #Gram-positive bacteremia, staph in clusters, MRSa?? #Septic shock #Acute kidney injury, prerenal possibly ATN. Acute renal failure #Acute hypercabic resp failure #Chronic hypoxic resp failure #Acute on chronic diasotlic HF #Hx of multiple admissions #Immunocompromised, on adalimumab, methrotrexate outpatient, #A-fib with RVR #Acute on chronic anemia #Renal failure, initiate dialysis today ? Check FOBT, pending ? Protonix IV twice daily ? Continue to hold metoprolol. Ordered amnio bolus and subsequently amnio drip. Stop digoxin due to kidney injury. Check digoxin level - Continue patient on IV Bactrim every 8 hours. Will stop IV Bactrim due to acute renal failure. We will switch to oral dose. Discussed with pharmacy that we may be able to use oral in hemodialysis patients. Dose to be given after dialysis. Monitor BMP and magnesium every 12 hours. Replete as needed. Continue albumin, stop Bumex yesterday. -Hold home metoprolol, lisinopril duoneb q6h, CTA PE negative for PE propofol + fentanyl for sedation and pain vent protocol recheck ABG as per protocol consult pulmnology. appreciate recs Manzanares catheter swapped 08/03 ? Check iron panel, TIBC, ferritin. Percent saturation 18.3, iron 50, TIBC 273, ferritin 110. ?Vitamin B12 799 ? Patient currently on vasopressor Levophed of 10. Blood culture positive for staph in clusters possibly MRSA. She will be covered with Bactrim for that. Repeat blood cultures negative to date. ? Repeat blood cultures pending at this time ? Check echo to look for vegetation. Echo complete however poor study. ? Placed on fluconazole 200 daily for yeast in urine. Nystatin powder also ordered for perineal area. -Consult nephrology. Recommendations appreciated. Dr. Baxter consulted for placing dialysis catheter today. Will initiate dialysis for fluid removal. Order 1 unit packed RBC. Goal hemoglobin greater than 7. Full Code DVT PPX: SCDs. GI ppx: protonix 40 IV BID Prognosis is poor. Nursing staff and updated bedside in a lot of detail. All questions were answered to his satisfaction. Attestations Medical Necessity Statement*: Critically ill in ICU. Critical Care Time: The high probability of a clinically significant, sudden or life threatening deterioration of the patient's [renal, respiratory, cardiovascular] system(s) required my full and direct attention, intervention and personal management. The critical care time is as shown. This time is in addition to time spent performing any reported procedures but includes the following: [x] Data and vital sign review and interpretation [x] Patient assessment, examination and intervention [x] Documentation [x] Medication orders and management Critical Care Time (min): 65 Coding Level of Care Code Critical Care >/= 30 minutes Critical care time (in minutes): 65 The high probability of a clinically significant, sudden or life threatening deterioration, as referenced in this documentation, required my full and direct attention, intervention and personal management. The critical care time shown is in addition to time spent performing any reported separately billable procedures and includes the following: [x] Data and vital sign review and interpretation [x] Patient assessment, examination and intervention [x] Medication orders and management [x] Patient/Family updates as able [x] Care Coordination and Documentation. Diagnoses Chronic obstructive pulmonary disease, unspecified COPD type J44.9 COPD type: unspecified COPD Acute and chronic respiratory failure with hypoxia J96.21 PNA (pneumonia) J18.9 Pleural effusion J90 Acute on chronic diastolic congestive heart failure I50.33 Heart failure type: diastolic Heart failure chronicity: acute on chronic Ventilator dependence Z99.11 Respiratory failure J96.90 Acute respiratory failure with hypoxia and hypercarbia J96.01; J96.02 Respiratory acidosis E87.29 Multiorgan failure
[2023-08-05] MEDS: heparin, porcine 1,000 unit/mL INJ 10 mL 1000 UNIT IV (14:14)
--- NOTE | 2023-08-05 14:47 | PM.PN ---
Subjective Subjective: remains on vent Medications: Reviewed: Yes Vitals/I&O/Wt Last Vital Signs Temp 98.8 F 08/06/23 20:36 Pulse 102 H 08/06/23 20:36 Resp 26 H 08/06/23 20:36 BP 156/84 08/06/23 20:36 Pulse Ox 97 08/06/23 19:59 O2 Del Method Mechanical Ventilation 08/06/23 19:59 O2 Flow Rate 6 08/02/23 08:20 FiO2 30 08/06/23 19:59 08/06/23 08/06/23 08/06/23 06:59 14:59 22:59 Intake Total 685.792 / 3572.056 393.520 / 637.221 1733.566 / 1718.086 Output Total 100 / 3312 2343 / 2343 Balance 585.792 / 260.056 393.520 / 393.520 -1018.434 / -624.914 Weight last 48 hrs Weight 115.122 kg Weight 113.988 kg Weight 113.988 kg Physical Exam Narrative: intubated , sedated Urinary Catheter Management: Manzanares Latex: Cath Placed During This Visit: yes, but has since been removed by the nurse Reason for Continuing Indwelling Catheter: Accurate Measurement of Urinary Output in Critically Ill Patients Urinary Catheter Date of Insertion: 07/27/23 Urinary Catheter Time of Insertion: 19:45 Date Urinary Catheter Removed: 08/03/23 Time Urinary Catheter Discontinued: 14:30 Manzanares: Cath Placed During This Visit: no Reason for Continuing Indwelling Catheter: Accurate Measurement of Urinary Output in Critically Ill Patients Data 08/06/23 03:36 08/06/23 03:36 Micro: Microbiology 08/06/23 07:50 Gram Stain - Final Lung Right Lower Lobe 08/06/23 11:00 Gram Stain - Final Sputum - Endotracheal Tube Aspirate 08/02/23 10:10 Blood Culture - Final Blood Staphylococcus hominis 08/04/23 19:30 Gram Stain - Final Sputum - Endotracheal Tube Aspirate Sputum Culture - Preliminary 07/30/23 11:20 M. tuberculosis Complex (PCR) - Final Sputum - Expectorated Sputum MTB Complex and Rifampin Resistance - Final A&P Assessment and plan (1) CYNTHIA (acute kidney injury): Plan 1. Acute on chronic kidney disease stage III: Baseline creatinine is in the 1 range, now has severe CYNTHIA with a creatinine of 3.9 and volume overload, patient became anuric in the last 24 hours. No significant response to diuretics. s/p temporary HD catheter placement and initiated hemodialysis for volume management. 2. Acute on chronic respiratory failure: Multifactorial, intubated currently, on pressors 3. Sepsis, secondary to pneumonia, on broad-spectrum antibiotics 4. A-fib 5. Morbid obesity Patient evaluated using audiovisual cart. Time spent 40 minutes. Attestations Medical Necessity Statement*: needs icu stay Coding Level of Care Code Acute Code for [facility] Fwd Diagnoses CYNTHIA (acute kidney injury) N17.9
[2023-08-05] MEDS: heparin, porcine 1,000 unit/mL INJ 10 mL 10000 UNIT INTRACATH (15:41)
[2023-08-05] MEDS: fluconazole premix 200 MG/100 ML PREMIX 100 MG IV (16:31)
[2023-08-05] MEDS: vancomycin 1,250 MG/250 ML PIGGYBACK 250 MG IV (16:32)
[2023-08-05 17:24] LABS: Glucose Point of Care 119 mg/dL (70-110)
[2023-08-05] MEDS: piperacillin-tazobactam 3.375 GM in sodium chloride 0.9% (plus) 50 ML IV (17:39)
[2023-08-05] MEDS: propofol 1,000 MG/100 ML INJ 19.72 MG IV (18:50)
--- NOTE | 2023-08-05 19:48 | PC.NURSE ---
MAR Upon assessment of patient, levophed administering at 8 mcg/min while MAR displays 12 mcg/min. MAR updated to reflect administration.
[2023-08-05] MEDS: atorvastatin 40 mg Tablet 80 MG PO (20:12)
[2023-08-05 22:53] LABS: Glucose Point of Care 155 mg/dL (70-110)
[2023-08-05] MEDS: propofol 1,000 MG/100 ML INJ 16.44 MG IV (23:46)
[2023-08-06] VITALS (93 sets, daily range): BP systolic 84–156; BP diastolic 41–92; PULSE 72–113; RESP 14–26; TEMP 36.9–37.1; O2SAT 90–100; BMI 36.0
[2023-08-06] MEDS: norepinephrine 4 MG/250 ML BAG 22.5 MG IV (02:35)
[2023-08-06] MEDS: piperacillin-tazobactam 3.375 GM in sodium chloride 0.9% (plus) 50 ML IV ×2 (04:10→17:31)
[2023-08-06 05:35] LABS: Basophils # 0.1 10^3/uL (0.0-0.1); Basophils % 0.8 %; Eosinophils # 0.1 10^3/uL (0.0-0.8); Eosinophils % 1.4 %; Hematocrit 22.8 % (36-47); Lymphocytes # 0.7 10^3/uL (0.8-4.8); Lymphocytes % 10.7 %; Mean Corpuscular HGB Conc 31.1 g/dL (30-55); Mean Corpuscular Hemoglobin 26.4 pg (27-33); Mean Corpuscular Volume 84.8 fl (85-98); Mean Platelet Volume 10.1 fL (7.4-10.4); Monocytes # 0.8 10^3/uL (0.2-0.9); Monocytes % 12.2 %; Neutrophils # 4.86 10^3/uL (1.8-7.7); Neutrophils % 74.3 %; Nucleated Red Blood Cells % 0 %; Platelet Count 167 10^3/cmm (157-399); Red Blood Count 2.69 10^6/uL (3.85-5.65); Red Cell Distribution Width 16.9 % (12.1-15.1); White Blood Count 6.54 10^3/uL (3.29-11.43)
[2023-08-06] MEDS: duloxetine 60 mg Capsule PO (05:50)
[2023-08-06] MEDS: pyridostigmine 60 mg Tablet PO (05:50)
[2023-08-06] MEDS: levothyroxine 150 mcg Tablet PO (05:50)
[2023-08-06 05:58] LABS: Glucose Point of Care 118 mg/dL (70-110)
[2023-08-06 06:02] LABS: Alanine Aminotransferase 22 U/L (0-33); Albumin Level 2.7 g/dL (3.5-5.2); Alkaline Phosphatase 85 U/L (35-105); Anion Gap 17.7 (5-19); Aspartate Amino Transferase 85 U/L (0-32); Blood Urea Nitrogen 21 mg/dL (8-23); Carbon Dioxide 28 mmol/L (22-29); Chloride 85 mmol/L (98-107); Globulin 2.6 g/dL (1.3-4.6); Glucose 98 mg/dL (65-115); Magnesium 1.5 mg/dL (1.7-2.3); Osmolality Calculated 267 mOsm/kg (285-295); Potassium 3.7 mmol/L (3.5-5.1); Sodium 127 mmol/L (136-145); Total Bilirubin 0.2 mg/dL (0.15-1.2); Total Protein 5.3 g/dL (6.6-8.7)
[2023-08-06] MEDS: propofol 1,000 MG/100 ML INJ 16.44 MG IV ×3 (06:37→18:25)
[2023-08-06] MEDS: fentaNYL 1,000 MCG/100 ML BAG 5 MCG IV (07:09)
--- NOTE | 2023-08-06 07:31 | P.PN_ITS ---
Subjective 2 Subjective: Patient seen at bedside today multiple times She is on Levophed as well as amiodarone drip Started on dialysis over weekend Underwent bronchoscopy today morning-showed copious amounts of mucus within right lower lobe subsegments-suctioned right away; BAL sent for various studies Other labs and imaging reviewed Medications: Reviewed: Yes Vitals/I&O/Wt Last Vital Signs Temp 98.6 F 08/06/23 07:22 Pulse 102 H 08/06/23 07:15 Resp 14 08/06/23 04:00 BP 106/48 08/06/23 07:15 Pulse Ox 95 08/06/23 07:15 O2 Del Method Mechanical Ventilation 08/06/23 04:15 O2 Flow Rate 6 08/02/23 08:20 FiO2 35 08/06/23 04:15 08/05/23 08/06/23 08/06/23 22:59 06:59 14:59 Intake Total 1512.139 / 2886.264 685.792 / 3572.056 21.208 / 21.208 Output Total 3212 / 3212 100 / 3312 Balance -1699.861 / -325.736 585.792 / 260.056 21.208 / 21.208 Weight last 48 hrs Weight 251 lb 4.8 oz Weight 251 lb 4.8 oz Physical Exam 2 Narrative: PHYSICAL EXAM: General: lying in bed, sedated and intubated. HEENT:NCAT, PERRLA, EOMI Neck: Supple Lungs: Diffuse crackles Heart: s1/s2, RRR Abd: soft, NT, ND, BS + Normoactive Extremities: No edema VESSEL BUILDER: sedated and limited VESSEL BUILDER exam possible. SKIN: no rash LDA: # CVC: Right internal jugular vein 08/02/2023 # Manzanares: Yes Urinary Catheter Management: Manzanares Latex: Cath Placed During This Visit: yes, but has since been removed by the nurse Reason for Continuing Indwelling Catheter: Accurate Measurement of Urinary Output in Critically Ill Patients Urinary Catheter Date of Insertion: 07/27/23 Urinary Catheter Time of Insertion: 19:45 Date Urinary Catheter Removed: 08/03/23 Time Urinary Catheter Discontinued: 14:30 Manzanares: Cath Placed During This Visit: no Reason for Continuing Indwelling Catheter: Accurate Measurement of Urinary Output in Critically Ill Patients Data 08/06/23 03:36 08/06/23 03:36 Other Labs: Radiology Impressions Chest CTA 08/02/23 17:42 IMPRESSION: 1. Negative for pulmonary embolus. 2. Endotracheal tube and enteric tube seen in place. 3. Right-sided central venous catheter. 4. Large bilateral pleural effusions. 5. Several enlarged mediastinal lymph nodes measuring up to 17 mm, nonspecific. 6. Cardiomegaly. 7. Coronary artery atherosclerotic calcifications. 8. Cirrhotic liver. 9. Hepatic steatosis. 10. Cholecystectomy. 11. Bilateral right greater than left airspace infiltrates. 12. Left kidney 16 mm exophytic probable hyperdense cyst, nonemergent ultrasound could further characterize this. 13. Main pulmonary artery is somewhat prominent which can be a finding of pulmonary artery hypertension. COMMENTS: Consistent with the [employer]'s Incidental Findings Committee white paper (J Am Cesar Radiol 2018): Any incidental renal lesion less than 1 cm or classified as too small to characterize, or any incidental cystic renal lesion characterized as simple-appearing, is likely benign. No follow-up imaging is recommended for these lesions per consensus recommendations based on imaging criteria. Abdomen X-Ray 08/04/23 14:43 IMPRESSION: Air-filled structure positioned in the midline lower abdomen may represent a low-lying stomach. Dilated bowel loop/obstruction cannot be excluded. Chest X-Ray 08/05/23 08:55 IMPRESSION: As above. Laboratory Results WBC 6.54 10^3/uL (3.29-11.43) 08/06/23 03:36 RBC 2.69 10^6/uL (3.85-5.65) L 08/06/23 03:36 Hgb 7.10 g/dL (11.27-16.99) L 08/06/23 03:36 Hct 22.8 % (36-47) L 08/06/23 03:36 MCV 84.8 fl (85-98) L 08/06/23 03:36 MCH 26.4 pg (27-33) L 08/06/23 03:36 MCHC 31.1 g/dL (30-55) 08/06/23 03:36 RDW 16.9 % (12.1-15.1) H 08/06/23 03:36 Plt Count 167 10^3/cmm (157-399) 08/06/23 03:36 MPV 10.1 fL (7.4-10.4) 08/06/23 03:36 Neut % (Auto) 74.3 % 08/06/23 03:36 Lymph % (Auto) 10.7 % 08/06/23 03:36 [place] % (Auto) 12.2 % 08/06/23 03:36 Eos % (Auto) 1.4 % 08/06/23 03:36 Baso % (Auto) 0.8 % 08/06/23 03:36 Neut # (Auto) 4.86 10^3/uL (1.8-7.7) 08/06/23 03:36 Lymph # (Auto) 0.7 10^3/uL (0.8-4.8) L 08/06/23 03:36 [place] # (Auto) 0.8 10^3/uL (0.2-0.9) 08/06/23 03:36 Eos # (Auto) 0.1 10^3/uL (0.0-0.8) 08/06/23 03:36 Baso # (Auto) 0.1 10^3/uL (0.0-0.1) 08/06/23 03:36 Nucleated RBC % (auto) 0 % 08/06/23 03:36 Nucleated RBCs # 0.0 /100WBC 08/06/23 03:36 PT 14.70 SECONDS (12.1-14.9) 08/04/23 04:55 INR 1.11 (0.8-1.2) 08/04/23 04:55 APTT 25.9 SECONDS (23.9-36.7) 08/02/23 17:51 Fibrinogen 556 mg/dL (174-498) H 08/02/23 17:51 D-Dimer 0.74 ug/mLFEU (0-0.59) H 08/02/23 17:51 Specimen Type Arterial 08/05/23 04:10 Sample Site Brachial, left 08/05/23 04:10 ABG pH 7.42 (7.35-7.45) 08/05/23 04:10 ABG pCO2 51.3 mmHg (35-45) H 08/05/23 04:10 ABG pO2 78.7 mmHg (80.0-100.0) L 08/05/23 04:10 ABG PO2/FiO2 Ratio 0 08/05/23 04:10 ABG HCO3 33.3 mmol/L (22-26) H 08/05/23 04:10 ABG O2 Saturation 94.8 08/05/23 04:10 ABG Base Excess 8.0 mmol/L (-2.0-2.0) H 08/05/23 04:10 Memo Test Pos 08/05/23 04:10 A-a O2 Gradient 28.2 mmHg (5-10) H 08/05/23 04:10 Hematocrit 20.1 % (37-47) L 08/05/23 04:10 Hgb O2 Saturation 92.2 % (95-100) L 08/05/23 04:10 Carboxyhemoglobin 1.4 %THgb (0.4-20.1) 08/05/23 04:10 Methemoglobin 1.3 % (0.4-1.5) 08/05/23 04:10 Total Hemoglobin 6.5 g/dL (12-16) L 08/05/23 04:10 Sodium 125.0 mmol/L (131-143) L 08/05/23 04:10 Potassium 3.7 mmol/L (3.5-5.0) 08/05/23 04:10 Glucose 134.0 mg/dL (70-115) H 08/05/23 04:10 Ionized Calcium 1.1 mmol/L (1.1-1.4) 08/05/23 04:10 O2 Delivery Device Vent 08/05/23 04:10 O2 Liters/Min 5.0 % 07/25/23 15:12 FiO2 50.0 % 08/05/23 04:10 Tidal Volume 0.40 08/05/23 04:10 PEEP 8.0 cmH20 08/04/23 14:50 Skip Locator ID Cak 08/05/23 04:10 Sodium 127 mmol/L (136-145) L 08/06/23 03:36 Potassium 3.7 mmol/L (3.5-5.1) 08/06/23 03:36 Chloride 85 mmol/L (98-107) L 08/06/23 03:36 Carbon Dioxide 28 mmol/L (22-29) 08/06/23 03:36 Anion Gap 17.7 (5-19) 08/06/23 03:36 BUN 21 mg/dL (8-23) 08/06/23 03:36 Creatinine 3.1 mg/dL (0.5-0.9) H 08/06/23 03:36 GFR Calculation Not Reportable 08/06/23 03:36 Glucose 98 mg/dL (65-115) 08/06/23 03:36 POC Glucose 183 mg/dL (70-110) H 08/06/23 17:01 Calculated Osmolality 267 mOsm/kg (285-295) L 08/06/23 03:36 Lactate 3.6 mmol/L (0.5-2.2) H 08/04/23 15:18 Calcium 8.0 mg/dL (8.5-10.5) L 08/06/23 03:36 Phosphorus 5.9 mg/dL (2.5-4.5) H 08/05/23 03:45 Magnesium 1.5 mg/dL (1.7-2.3) L 08/06/23 03:36 Iron 50 ug/dL (37-145) 08/04/23 04:45 TIBC 273 mcg/dl 08/04/23 04:45 % Saturation 18.3 % (20-50) L 08/04/23 04:45 Unsat Iron Binding 223 ug/dL (112-347) 08/04/23 04:45 Ferritin 110 ng/mL (15-150) 08/04/23 04:45 Total Bilirubin 0.2 mg/dL (0.15-1.2) 08/06/23 03:36 AST 85 U/L (0-32) H 08/06/23 03:36 ALT 22 U/L (0-33) 08/06/23 03:36 Alkaline Phosphatase 85 U/L (35-105) 08/06/23 03:36 Troponin T Baseline 43 ng/L (0-10) H 08/02/23 17:51 Troponin T 120 Minute 47.08 ng/L (0-10) H 08/02/23 20:05 Delta Troponin T 4.08 ABS# (0-10) 08/02/23 20:05 Troponin T Hi Sens 6Hr 47.70 ng/L (0-10) H 08/02/23 23:47 Troponin T Hi Sens 6Hr Delta 4.70 ng/L (0-12) 08/02/23 23:47 NT-Pro-B Natriuret Pep 4242 pg/mL (0-125) H 08/02/23 17:51 Total Protein 5.3 g/dL (6.6-8.7) L 08/06/23 03:36 Albumin 2.7 g/dL (3.5-5.2) L 08/06/23 03:36 Globulin 2.6 g/dL (1.3-4.6) 08/06/23 03:36 Vitamin B12 799 pg/mL (232-1245) 08/04/23 04:45 25-OH Vitamin D Total 35 ng/mL (30-100) 08/04/23 04:45 Procalcitonin 0.47 ng/mL (0-0.5) 08/04/23 04:45 Urine Color Dark yellow (Yellow) 07/25/23 11:54 Urine Appearance Hazy (CLEAR) A 07/25/23 11:54 Urine pH 5 (5-7) 07/25/23 11:54 Ur Specific [place] 1.020 (1.005-1.030) 07/25/23 11:54 Urine Protein Trace (Negative) 07/25/23 11:54 Urine Glucose (UA) Norm (Normal) 07/25/23 11:54 Urine Ketones Negative (Negative) 07/25/23 11:54 Urine Blood Neg (Negative) 07/25/23 11:54 Urine Nitrate Negative (Negative) 07/25/23 11:54 Urine Bilirubin Neg (Negative) 07/25/23 11:54 Urine Urobilinogen Norm mg/dL (Negative) 07/25/23 11:54 Ur Leukocyte Esterase Negative (Negative) 07/25/23 11:54 Urine RBC 0-4 /hpf (0-2) H 07/25/23 11:54 Urine WBC 15-25 /hpf (0-5) H 07/25/23 11:54 Ur Squamous Epith Cells 10-15 /hpf (0-5) H 07/25/23 11:54 Ur Transition Epith Cell 5-10 /hpf 07/25/23 11:54 Amorphous Sediment Not Reportable 07/25/23 11:54 Urine Bacteria Trace /hpf (NONE) 07/25/23 11:54 Hyaline Casts 5-10 /lpf H 07/25/23 11:54 Urine Mucus Trace /hpf 07/25/23 11:54 Bronch Specimen Source Right lower lobe 08/06/23 07:50 Bronchial Fluid Color Slight pink 08/06/23 07:50 Bronchial Fluid Appearance Hazy (CLEAR) 08/06/23 07:50 Bronch Cells Counted 200 08/06/23 07:50 Bronchial Neutrophils 29.00 % (0.9-2.3) H 08/06/23 07:50 Bronchial Lymphocytes 3.00 % (10.71-12.91) L 08/06/23 07:50 Bronchial Eosinophils 1.00 % (0.13-0.25) H 08/06/23 07:50 Bronchial Macrophages 67.00 % (83.6-86.8) L 08/06/23 07:50 Bronchial Diff Comment Yes 08/06/23 07:50 Vancomycin Trough 12.0 ug/mL (10-15) 07/28/23 14:08 Digoxin 0.6 ng/mL (0.6-1.2) 08/04/23 04:45 Coccidioides immitis CF <1:2 07/26/23 08:55 Coronavirus 229E (PCR) Not detected (NOT DETECT) 07/25/23 15:47 Hep Bs Antigen Non-reactive (Nonreactive) 08/05/23 03:45 Hep Bs Antibody < 3.5 (11.5-1000) L 08/05/23 03:45 Histo Mycel H Protein Negative 07/26/23 08:55 Histo Mycel M Protein Negative 07/26/23 08:55 U Histop Galact Ag Qnt <0.2 ng/mL 07/25/23 11:54 Influenza Type A Ag negative (Negative) 07/25/23 15:47 Influenza Type B Ag negative (Negative) 07/25/23 15:47 A. galactomannan Ag EIA Not detected 07/26/23 08:55 A. galactomannan Ag Idx <0.50 07/26/23 08:55 SARS-CoV-2 (PCR) Not detected (NOT DETECT) 07/25/23 15:47 MRSA (PCR) Not detected (NOT DETECTED) 08/04/23 15:18 TB (QFT) Gold In Tube Negative (NEGATIVE) 07/26/23 08:55 TB Test (QFT) Nil 0.04 IU/mL 07/26/23 08:55 TB Test (QFT) Mitogen 8.86 IU/mL 07/26/23 08:55 TB Test Mitogen - Nil 0.00 IU/mL 07/26/23 08:55 TB Test TB -Nil <0.00 IU/mL 07/26/23 08:55 Beta-(1,3)-D-Glucan 123 pg/mL H 07/26/23 08:55 B-(1,3)-D-Glucan Intrp Positive A 07/26/23 08:55 Misc Test Reference Cancelled 07/30/23 11:20 Blood Type O Positive 08/05/23 09:26 Rho(D) Type Rh positive 08/05/23 09:26 Antibody Screen Negative 08/05/23 09:26 Crossmatch See Detail 08/05/23 09:26 Micro: Microbiology 07/30/23 11:20 M. tuberculosis Complex (PCR) - Final Sputum - Expectorated Sputum MTB Complex and Rifampin Resistance - Final 08/04/23 19:30 Gram Stain - Final Sputum - Endotracheal Tube Aspirate 08/02/23 11:32 Urine Culture - Final Urine Catheterized Amber albicans A&P Assessment and plan (1) Acute respiratory failure with hypoxia and hypercarbia: (2) Ventilator dependence: (3) CHF (congestive heart failure): Qualifiers: Heart failure type: diastolic Heart failure chronicity: acute on chronic Qualified Code(s): I50.33 - Acute on chronic diastolic (congestive) heart failure (4) Seronegative rheumatoid arthritis of both hands: (5) High risk medication use: (6) Morbid obesity: (7) Chronic atrial fibrillation: (8) CYNTHIA (acute kidney injury): Plan # Acute hypoxic/hypercapnic respiratory failure in patient with underlying COPD, diastolic heart failure, chronic bilateral pleural effusions, morbid obesity # History of rheumatoid arthritis on Humira and immunosuppressive medications- rule out underlying opportunistic infections # CYNTHIA on CKD-currently on Levophed # Chronic F-oix-rpybqnnci rate controlled-started on amiodarone drip # Hypokalemia and hypomagnesemia-supplement and monitor # Large bilateral pleural effusions -Intubated and sedated-currently on fentanyl/propofol-she is on minimal vent settings-ABG acceptable patient baseline CO2 is around 60-made ventilator changes accordingly- -CTA 08/02/2023-ruled out PE; large bilateral pleural effusions; very difficult to do ultrasound-guided thoracentesis given her body habitus; however she was started on hemodialysis -Patient is on IV Bactrim (day 3 )as well as Zosyn--which may have been contributing to excess volume-along with A-fib RVR -She is on Levophed 6 mcg/hour-likely secondary to initiation of sedation vs septic shock -Bronchoscopy 10/07/2022-revealed copious amount of secretions blocking right lower lobe subsegments-they were suctioned out and BAL sent for various studies - Sugars are moderately controlled-On insulin scale coverage -workup so far negative for respiratory viral panel, COVID-19,; Given her immunosuppression for rheumatoid arthritis-extensive workup was sent - So for beta D glucan weekly positive-PCP PCR, histoplasma antigen, coccidioidomycosis-are pending; she was started on IV Bactrim on 07/31/2023 and started on steroids today - She is in airborne isolation-sputum for MTB-is pending; TB QuantiFERON is negative She is on minimal vent settings-tomorrow morning will taper off sedation and start on Precedex and to do awakening trial if passes will proceed with breathing trial ICU CHECKLIST: Problem list updated Verbal orders reviewed and signed Code Status: Full code Disposition: ICU Critically ill: Yes MD discussed with: Hospitalist, RN, RT Prognosis: Critical Family: updated about medical condition, plan of management, prognosis at bedside Analgesia: Fentanyl Glycemic Control: Scale coverage Nutrition: Trickle feeding Restraint Renewal (within 24 hrs): Yes Ulcer Prophylaxis: PPI Chemical Thromboprophylaxis: Prophylaxis: Heparin Mechanical Thromboprophylaxis: SCD Need for Central line: Yes for pressors Need for Manzanares catheter: Yes for urine output monitoring Attestations 2 Medical Necessity Statement*: Critically ill in ICU. Time Spent in Patient Care: Greater than 35 minutes (>than 50% of time spent in counselling and/or direct pt care on unit) . Critical Care Time: The high probability of a clinically significant, sudden or life threatening deterioration of the patient's [renal, respiratory, cardiovascular] system(s) required my full and direct attention, intervention and personal management. The critical care time is as shown. This time is in addition to time spent performing any reported procedures but includes the following: [x] Data and vital sign review and interpretation [x] Patient assessment, examination and intervention [x] Documentation [x] Medication orders and management Critical Care Time (min): 71 Coding Level of Care Code Acute Code for Chg Fwd Diagnoses Acute respiratory failure with hypoxia and hypercarbia J96.01; J96.02 Ventilator dependence Z99.11 Acute on chronic diastolic congestive heart failure I50.33 Heart failure type: diastolic Heart failure chronicity: acute on chronic Seronegative rheumatoid arthritis of both hands M06.041; M06.042 High risk medication use Z79.899 Morbid obesity E66.01 Chronic atrial fibrillation I48.20 CYNTHIA (acute kidney injury) N17.9 Time Spent (min) 71
[2023-08-06] MEDS: ipratropium-albuterol 3 mL Neb INHALATION ×4 (08:08→19:58)
--- NOTE | 2023-08-06 08:08 | P.PCN_ITS ---
Procedure/Consent Time out: Time Out Performed: Yes Consent: Consent for Procedure: Consent obtained from other (indicate) Procedure Narrative: Procedure : 79142 Dx Bronchoscope w/Washings or ai rway inspection 38083 Dx Bronchoscope w/BAL 61260 Bronchoscopy w/ therapeutic aspi ration of the tracheobronchial tree (clearance of airway secretions, removal of mucus plugs) Pre-Operative Diagnosis: Pneumonia Post-Operative Diagnosis: Same Indication: Persistent infiltrates on chest x-ray and patient on immuno suppressive medications-to rule out PCP/fungal Brief History: Myesha Parker is a 72 year old female with history of diastolic CHF, seronegative RA , on Humira and methotrexate , COPD, uses 2 to 3 L of oxygen at baseline and Bipap at home, A fib not on a/c due to recurrent falls,, multiple hospital admissions, intubated for hypoxic, hypercapnic respiratory failure. She has been noted to have patchy left bilateral groundglass opacities and has been treated for COPD exacerbation and CHF exacerbation on these past admissions. She was covered empirically with Zosyn and vancomycin-workup so far negative for respiratory viral panel, COVID-19, Given her immunosuppression for rheumatoid arthritis-extensive workup was sent So for beta D glucan weekly positive-and get sputum for PCP PCR, histoplasma antigen, coccidioidomycosis-are pending; she was started on IV Bactrim on 07/31/2023 Today decided to do bronchoscopy to obtain BAL and sent for cultures, PCP PCR, as well as fungal studies. Consent: Consents were obtained from [facility] and placed in the chart Pre-procedure Evaluation: Patient was evaluated clinically and ancillary testing reviewed. The risk of having active MTB infection is very low in my clinical judgement. ASA: 4 Malampati score: unable to evaluate due to presence of endotracheal tube Indication: Worsening infiltrates on right side on chest x-ray Time out: Performed by the procedure team and nursing staff. Vent support maintained on Fio2 100. Anesthesia: Patient is already intubated and sedated with fentanyl drip which is titrated to achieve adequate sedation Local anesthesia: The humberto in the right and left mainstem bronchi were anesthetized with 1% lidocaine, 6 mL. Summary of Significant Findings: -Bronchoscope passed through ET tube us ed for initial inspection ([id number]) and airway clearance. The scope was advanced through the ET tube. The lower trachea mucosa appeared normal, no endotracheal lesion was seen. The humberto was sharp. The humberto, the right and left mainstem bronchi are anesthetized with 1% lidocaine. In a systematic manner bilateral bronchial tree was then examined. The bronchoscope was advanced into the left mainstem bronchus. The mucosa appeared normal with no endobronchial lesions. The left upper lobe, lingula and left lower lobe bronchi were examined up to the third subsegmental level and no abnormalities were identified. Mucosa appeared normal with no endobronchial lesion, active bleeding or mucous plug. There were some clear secretions in lower lobe-which were suctioned right away. The bronchoscope was then introduced into the right mainstem bronchus. The right upper lobe, right middle lobe and right lower lobe bronchi were examined up to the third subsegmental level and no abnormalities were identified. The mucosa appeared normal with no endobronchial lesions, active bleeding. There were some secretions which were suctioned right away. BAL obtained from right lower lobe the bronchoscope was then removed and the procedure terminated. Estimated Blood Loss: None Specimens: Bronchoalveolar lavage ([id number]) from right lower lobe sent for cultures, fluid analysis, PCP PCR, Asperillus antigen Complications:None; patient tolerated the procedure well. Disposition: Patient remains critically ill, intubated and stays in ICU Surgeon: Javed Christiansen MD, [facility] Pulmonary critical Care Medicine [facility] Acute Procedures Epistaxis Control: Time out performed: Yes
[2023-08-06] MEDS: lidocaine 5% Patch 1 PATCH TOPICAL (09:02)
[2023-08-06] MEDS: nystatin powder 15 gm Btl 1 APPLIC TOPICAL ×2 (09:03→17:33)
[2023-08-06] MEDS: chlorhexidine gluconate 0.12% Btl 473 mL 15 ML MUCOUS MEM ×2 (09:03→17:32)
[2023-08-06] MEDS: pantoprazole 40 mg SDV IVP ×2 (09:03→17:32)
[2023-08-06] MEDS: sulfamethoxazole-trimeth DS 160-800 mg Tablet 2 TAB PO (09:03)
--- NOTE | 2023-08-06 10:30 | P.PN_ITS ---
Subjective 2 Subjective: Intubated, sedated, on levophed 6 mcg, vent setting 30% fi02, PEEP 8 , blood cx with zane hutchinson from 08/02 . Underwent bronchoscopy today to clear secretions from the right lower lobe. Cultures, pneumocystis PCR, AFB smear and MTB PCR sent from [facility] and from endotracheal wash. Plan dialysis today. Medications: Reviewed: Yes Vitals/I&O/Wt Last Vital Signs Temp 98.8 F 08/06/23 20:36 Pulse 82 08/06/23 22:00 Resp 15 08/06/23 23:12 BP 108/51 08/06/23 22:00 Pulse Ox 97 08/06/23 23:12 O2 Del Method Mechanical Ventilation 08/06/23 20:00 O2 Flow Rate 6 08/02/23 08:20 FiO2 30 08/06/23 23:12 08/06/23 08/06/23 08/07/23 14:59 22:59 06:59 Intake Total 393.520 / 959.348 2036.566 / 1718.086 Output Total 2343 / 2343 Balance 393.520 / 393.520 -1018.434 / -624.914 Weight last 48 hrs Weight 115.122 kg Weight 113.988 kg Weight 113.988 kg Physical Exam 2 Narrative: General: intubated, sedated HEENT: PERRLA, pupils bilaterally equal and reactive, pallors not present Chest: Normal vesicular breath sounds, no added sounds, equal good air entry bilaterally CVS: S1-S2 regular, no murmurs, no tachycardia, no gallops, no rubs Abdomen: Soft, nontender, no organomegaly, bowel sounds present Neuro: Intubated, sedated Urinary Catheter Management: Manzanares Latex: Cath Placed During This Visit: yes, but has since been removed by the nurse Reason for Continuing Indwelling Catheter: Accurate Measurement of Urinary Output in Critically Ill Patients Urinary Catheter Date of Insertion: 07/27/23 Urinary Catheter Time of Insertion: 19:45 Date Urinary Catheter Removed: 08/03/23 Time Urinary Catheter Discontinued: 14:30 Manzanares: Cath Placed During This Visit: no Reason for Continuing Indwelling Catheter: Accurate Measurement of Urinary Output in Critically Ill Patients Data 08/06/23 03:36 08/07/23 08:33 Micro: Microbiology 08/06/23 07:50 Gram Stain - Final Lung Right Lower Lobe 08/06/23 11:00 Gram Stain - Final Sputum - Endotracheal Tube Aspirate 08/02/23 10:10 Blood Culture - Final Blood Staphylococcus hominis 08/04/23 19:30 Gram Stain - Final Sputum - Endotracheal Tube Aspirate Sputum Culture - Preliminary A&P Assessment and plan (1) COPD (chronic obstructive pulmonary disease): Qualifiers: COPD type: unspecified COPD Qualified Code(s): J44.9 - Chronic obstructive pulmonary disease, unspecified (2) Acute and chronic respiratory failure with hypoxia: (3) PNA (pneumonia): (4) Pleural effusion: (5) CHF (congestive heart failure): acute on chronic with preserved EF Qualifiers: Heart failure type: diastolic Heart failure chronicity: acute on chronic Qualified Code(s): I50.33 - Acute on chronic diastolic (congestive) heart failure (6) Ventilator dependence: (7) Respiratory failure: (8) Acute respiratory failure with hypoxia and hypercarbia: (9) Respiratory acidosis: (10) Multiorgan failure: Plan 72-year-old lady with COPD, CHF, currently admitted to the hospital with acute on chronic hypoxic respiratory failure with multiple recent hospital admissions for the same reason. Recent chest x-rays and CAT scans have shows bilateral infiltrates which may represent pneumonic infiltrates versus pulmonary edema. pending sputum culture evaluation ongoing for opportunistic pneumonia while remaining on emepric zosyn. SHe has had levaquin as outpatient recently, less likely atypical infection. AFB smear negative x 1 ,pending 2 ; MTB PCR pending pending serum beta glucan, serum Aspergillus galactomannan, PCP PCR, MTB PCR and AFB culture x3. Prior QuantiFERON screening from 2019 was negative. pending more recent QuantiFERON now. Previous PPD positive per patient these were reportedly determined to be false positives pending histoplasma and Coccidioides serology. Patient denies any history of recent travel. She has noted to have bilateral pleural effusions additionally, thoracentesis was attempted on her most recent admission for diagnostic purposes, however there was insufficient fluid to proceed. b-d glucan weakly positive. negative respiratory viral panel. Echocardiogram from July 01, 2023 showed normal left ventricular size systolic function and wall thickness without regional wall motion abnormalities. LVEF of 65%. Aortic valve sclerosis without stenosis. #Vent dependent repiratory failure #Multiorgan failure #Gram-positive bacteremia, staph in clusters, MRSa?? #Septic shock #Acute kidney injury, prerenal possibly ATN. Acute renal failure #Acute hypercabic resp failure #Chronic hypoxic resp failure #Acute on chronic diasotlic HF #Hx of multiple admissions #Immunocompromised, on adalimumab, methrotrexate outpatient, #A-fib with RVR #Acute on chronic anemia #Renal failure, initiate dialysis today ? Check FOBT, pending ? Protonix IV twice daily ? Continue to hold metoprolol. Ordered amnio bolus and subsequently amnio drip. Stop digoxin due to kidney injury. Check digoxin level - Continue patient on IV Bactrim every 8 hours. Will stop IV Bactrim due to acute renal failure. We will switch to oral dose. Discussed with pharmacy that we may be able to use oral in hemodialysis patients. Dose to be given after dialysis. Monitor BMP and magnesium every 12 hours. Replete as needed. Continue albumin, stop Bumex yesterday. -Hold home metoprolol, lisinopril duoneb q6h, CTA PE negative for PE propofol + fentanyl for sedation and pain vent protocol recheck ABG as per protocol consult pulmnology. appreciate recs Manzanares catheter swapped 08/03 ? Check iron panel, TIBC, ferritin. Percent saturation 18.3, iron 50, TIBC 273, ferritin 110. ?Vitamin B12 799 ? Patient currently on vasopressor Levophed of 10. Blood culture positive for staph in clusters possibly MRSA. She will be covered with Bactrim for that. Repeat blood cultures negative to date. ? Repeat blood cultures pending at this time ? Check echo to look for vegetation. Echo complete however poor study. ? Placed on fluconazole 200 daily for yeast in urine. Nystatin powder also ordered for perineal area. -Consult nephrology. Recommendations appreciated. Dr. Baxter consulted for placing dialysis catheter today. Will initiate dialysis for fluid removal. Order 1 unit packed RBC. Goal hemoglobin greater than 7. Full Code DVT PPX: SCDs. GI ppx: protonix 40 IV BID Prognosis is poor. Nursing staff and updated bedside in a lot of detail. All questions were answered to his satisfaction. Plan for today: Continue ventilatory support, hemodialysis today, status post bronchoscopy today, awaiting culture and molecular data. Attempt weaning trial over next 24 hours Attestations 2 Medical Necessity Statement*: Continued respiratory support via ventilator. Coding Level of Care Code Acute Code for Chg Fwd Diagnoses Chronic obstructive pulmonary disease, unspecified COPD type J44.9 COPD type: unspecified COPD Acute and chronic respiratory failure with hypoxia J96.21 PNA (pneumonia) J18.9 Pleural effusion J90 Acute on chronic diastolic congestive heart failure I50.33 Heart failure type: diastolic Heart failure chronicity: acute on chronic Ventilator dependence Z99.11 Respiratory failure J96.90 Acute respiratory failure with hypoxia and hypercarbia J96.01; J96.02 Respiratory acidosis E87.29 Multiorgan failure
[2023-08-06 11:15] LABS: Glucose Point of Care 106 mg/dL (70-110)
[2023-08-06] MEDS: methylPREDNISolone sod succ 40 mg/mL INJ IVP ×2 (11:34→17:32)
[2023-08-06] MEDS: norepinephrine 4 MG/250 ML BAG 15 MG IV (11:41)
--- NOTE | 2023-08-06 12:02 | PC.SOCIAL ---
IMM Update pg 2 of IMM updated w/ patients who is @ bedside. Copy provided and copy dated, initialed and placed in chart.
[2023-08-06 12:25] LABS: Methicillin-Resist S.aureu PCR NOT DETECTED (NOT DETECTED)
[2023-08-06] MEDS: lidocaine 1% INJ 10 mL (per mL) INJECTION (13:22)
--- NOTE | 2023-08-06 13:26 | PC.OT ---
OT TREATMENT HELD DUE TO CURRENT INTUBATION. WILL ATTEMPT AGAIN AT A LATER TIME.
[2023-08-06] MEDS: heparin, porcine 1,000 unit/mL INJ 10 mL 1000 UNIT IV (13:35)
[2023-08-06 14:37] LABS: Apprearance, Bronch Wash Hazy (CLEAR); Bronch Source RIGHT LOWER LOBE; Color, Bronc Wash Slight Pink
[2023-08-06 14:42] LABS: Total Cells Counted Bronch 200
[2023-08-06 14:43] LABS: PATH Referral Yes
[2023-08-06] MEDS: fluconazole premix 200 MG/100 ML PREMIX 100 MG IV (16:36)
[2023-08-06] MEDS: heparin, porcine 1,000 unit/mL INJ 10 mL 10000 UNIT INTRACATH (16:38)
[2023-08-06 17:23] LABS: Glucose Point of Care 183 mg/dL (70-110)
[2023-08-06] MEDS: insulin lispro 100 unit/1 mL SUBCUT (17:32)
--- NOTE | 2023-08-06 19:52 | PC.NURSE ---
MAR Upon assessment of patient, levophed administering at 6 mcg/min while MAR displayed paused. MAR updated to reflect administration.
[2023-08-06] MEDS: atorvastatin 40 mg Tablet 80 MG PO (20:49)
--- NOTE | 2023-08-06 20:57 | PM.PN ---
Subjective Subjective: on vent 30% fio2 Medications: Reviewed: Yes Vitals/I&O/Wt Last Vital Signs Temp 98.8 F 08/06/23 20:36 Pulse 102 H 08/06/23 20:36 Resp 26 H 08/06/23 20:36 BP 156/84 08/06/23 20:36 Pulse Ox 97 08/06/23 19:59 O2 Del Method Mechanical Ventilation 08/06/23 19:59 O2 Flow Rate 6 08/02/23 08:20 FiO2 30 08/06/23 19:59 08/06/23 08/06/23 08/06/23 06:59 14:59 22:59 Intake Total 685.792 / 3572.056 393.520 / 543.814 7478.566 / 1718.086 Output Total 100 / 3312 2343 / 2343 Balance 585.792 / 260.056 393.520 / 393.520 -1018.434 / -624.914 Weight last 48 hrs Weight 115.122 kg Weight 113.988 kg Weight 113.988 kg Physical Exam Narrative: intubated , sedated Urinary Catheter Management: Manzanares Latex: Cath Placed During This Visit: yes, but has since been removed by the nurse Reason for Continuing Indwelling Catheter: Accurate Measurement of Urinary Output in Critically Ill Patients Urinary Catheter Date of Insertion: 07/27/23 Urinary Catheter Time of Insertion: 19:45 Date Urinary Catheter Removed: 08/03/23 Time Urinary Catheter Discontinued: 14:30 Manzanares: Cath Placed During This Visit: no Reason for Continuing Indwelling Catheter: Accurate Measurement of Urinary Output in Critically Ill Patients Data 08/06/23 03:36 08/06/23 03:36 Micro: Microbiology 08/06/23 07:50 Gram Stain - Final Lung Right Lower Lobe 08/06/23 11:00 Gram Stain - Final Sputum - Endotracheal Tube Aspirate 08/02/23 10:10 Blood Culture - Final Blood Staphylococcus hominis 08/04/23 19:30 Gram Stain - Final Sputum - Endotracheal Tube Aspirate Sputum Culture - Preliminary 07/30/23 11:20 M. tuberculosis Complex (PCR) - Final Sputum - Expectorated Sputum MTB Complex and Rifampin Resistance - Final A&P Assessment and plan (1) CYNTHIA (acute kidney injury): Plan 1. Acute on chronic kidney disease stage III: Baseline creatinine is in the 1 range, now has severe CYNTHIA with a creatinine of 3.9 and volume overload, patient became anuric in the last 24 hours. No significant response to diuretics. s/p temporary HD catheter placement and initiated hemodialysis for volume management. @ 2 hd session today 2. Acute on chronic respiratory failure: Multifactorial, intubated currently, on pressors 3. Sepsis, secondary to pneumonia, on broad-spectrum antibiotics 4. A-fib 5. Morbid obesity Patient evaluated using audiovisual cart. Time spent 40 minutes. Attestations Medical Necessity Statement*: icu stay Coding Level of Care Code Acute Code for [facility] Fwd Diagnoses CYNTHIA (acute kidney injury) N17.9
[2023-08-07] VITALS (97 sets, daily range): BP systolic 88–179; BP diastolic 39–112; PULSE 73–114; RESP 11–32; TEMP 36.6–37.1; O2SAT 88–100; BMI 36.6
[2023-08-07] MEDS: propofol 1,000 MG/100 ML INJ 16.44 MG IV ×2 (00:40→08:56)
[2023-08-07] MEDS: insulin lispro 100 unit/1 mL SUBCUT ×5 (00:42→23:29)
[2023-08-07 02:07] LABS: Glucose Point of Care 208 mg/dL (70-110)
--- NOTE | 2023-08-07 02:40 | PC.NURSE ---
Wound Dr. Simpson notified of need for wound care orders. Verification received to place maxorb with a dressing over it on sacrum ulcer and to notify receiving nurse of need for wound care consultation.
[2023-08-07] MEDS: piperacillin-tazobactam 3.375 GM in sodium chloride 0.9% (plus) 50 ML IV ×2 (04:15→16:16)
[2023-08-07] MEDS: methylPREDNISolone sod succ 40 mg/mL INJ IVP ×3 (04:15→20:06)
[2023-08-07 04:46] LABS: ABG PH Result 7.39 (7.35-7.45); Base Excess ABG 2.3 mmol/L (-2.0-2.0); Blood Gas Operator Identificat JB; Blood Gas Sample Site Brachial, right; Blood Gas Sample Type Arterial; HCO3 ABG 27.5 mmol/L (22-26); Oxygen Device VENT; PO2 ABG 48.5 mmHg (80.0-100.0); PO2 FiO2 Ratio Arterial Blood 0
[2023-08-07] MEDS: levothyroxine 150 mcg Tablet PO (05:39)
[2023-08-07] MEDS: duloxetine 60 mg Capsule PO (05:39)
[2023-08-07] MEDS: pyridostigmine 60 mg Tablet PO (05:39)
[2023-08-07] MEDS: norepinephrine 4 MG/250 ML BAG 7.5 MG IV (06:02)
[2023-08-07 06:42] LABS: Glucose Point of Care 217 mg/dL (70-110)
[2023-08-07 07:20] LABS: Glucose Point of Care 161 mg/dL (70-110)
[2023-08-07] MEDS: ipratropium-albuterol 3 mL Neb INHALATION ×4 (07:46→19:56)
[2023-08-07 09:06] LABS: Blood Urea Nitrogen 24 mg/dL (8-23); Calcium 8.5 mg/dL (8.5-10.5); Carbon Dioxide 24 mmol/L (22-29); Chloride 86 mmol/L (98-107); Glucose 154 mg/dL (65-115); Osmolality Calculated 269 mOsm/kg (285-295); Sodium 126 mmol/L (136-145)
[2023-08-07] MEDS: sulfamethoxazole-trimeth DS 160-800 mg Tablet 2 TAB PO (09:39)
[2023-08-07] MEDS: pantoprazole 40 mg SDV IVP ×2 (09:39→16:56)
[2023-08-07] MEDS: chlorhexidine gluconate 0.12% Btl 473 mL 15 ML MUCOUS MEM (10:06)
[2023-08-07] MEDS: nystatin powder 15 gm Btl 1 APPLIC TOPICAL ×2 (10:07→18:36)
--- NOTE | 2023-08-07 10:11 | XR_ITS ---
WS: [id number] Exam: XR chest 1V portable [id number] Date/Time of Exam: 08/07/2023 10:27 AM Reason For Exam: right pleural effusion vs collapse Comparison 08/05/2023 at 10:32 a.m. Improved cardiac enlargement and pulmonary vascular congestion since prior study. Improved RIGHT basa l pleural effusion. No pneumothorax identified. ET tube remains in satisfactory position ending about 5 cm above the humberto. RIGHT IJ central line ends in the lower one third of the SVC. Enteric tube no susie in the stomach. Bony structures are intact. Spondylosis of the dorsal spine. IMPRESSION: 1. Cardiac enlargement and pulmonary vascular congestion improved since previous study. RIGHT basal p leural effusion improved. 2. Central line, ET tube and NG tube all in satisfactory position.
--- NOTE | 2023-08-07 10:41 | P.PN_ITS ---
Subjective 2 Subjective: Status post dialysis yesterday. Appears to be more bloated today. Levophed requirements down to 2 mics today. Weaning sedation in an attempt to awaken patient and plan to extubate. Vent settings at 40% FiO2, PEEP of 8 this morning. ABG reviewed. Worsening sodium. Creatinine 3.1. Poor urine output at 100 cc last 24 hours. Medications: Reviewed: Yes Vitals/I&O/Wt Last Vital Signs Temp 97.9 F 08/07/23 09:00 Pulse 105 H 08/07/23 09:30 Resp 12 08/07/23 10:23 BP 116/85 08/07/23 09:30 Pulse Ox 96 08/07/23 10:23 O2 Del Method Mechanical Ventilation 08/07/23 07:50 O2 Flow Rate 6 08/02/23 08:20 FiO2 40 08/07/23 10:23 08/06/23 08/07/23 08/07/23 22:59 06:59 14:59 Intake Total 1419.566 / 5586.157 4117.417 / 3033.503 103.838 / 103.838 Output Total 2343 / 2343 100 / 2443 Balance -923.434 / -788.265 5740.417 / 590.503 103.838 / 103.838 Weight last 48 hrs Weight 115.575 kg Weight 115.122 kg Weight 113.988 kg Weight 113.988 kg Physical Exam 2 Narrative: General: intubated, sedated HEENT: PERRLA, pupils bilaterally equal and reactive, pallors not present Chest: Reduced breath sounds right lower lobe CVS: S1-S2 regular, no murmurs, no tachycardia, no gallops, no rubs Abdomen: Soft, nontender, no organomegaly, bowel sounds present Neuro: Intubated, sedated Urinary Catheter Management: Manzanares Latex: Cath Placed During This Visit: yes, but has since been removed by the nurse Reason for Continuing Indwelling Catheter: Accurate Measurement of Urinary Output in Critically Ill Patients Urinary Catheter Date of Insertion: 07/27/23 Urinary Catheter Time of Insertion: 19:45 Date Urinary Catheter Removed: 08/03/23 Time Urinary Catheter Discontinued: 14:30 Manzanares: Cath Placed During This Visit: no Reason for Continuing Indwelling Catheter: Accurate Measurement of Urinary Output in Critically Ill Patients Data 08/06/23 03:36 08/07/23 08:33 Micro: Microbiology 08/02/23 10:17 Blood Culture - Final Blood NO GROWTH AFTER 5 DAYS 08/06/23 07:50 Gram Stain - Final Lung Right Lower Lobe 08/06/23 11:00 Gram Stain - Final Sputum - Endotracheal Tube Aspirate 08/02/23 10:10 Blood Culture - Final Blood Staphylococcus hominis 08/04/23 19:30 Gram Stain - Final Sputum - Endotracheal Tube Aspirate Sputum Culture - Preliminary ABG Interpretation 1: 07/25/23 08/02/23 08/02/23 15:12 08:42 11:48 ABG pH 7.38 7.18 L* 7.56 H ABG pCO2 60.8 H* 85.9 H* 43.7 ABG pO2 67.8 L 129.0 H 237.0 H ABG HCO3 36.0 H 32.2 H 38.9 H ABG O2 Saturation 92.2 98.2 99.1 ABG Base Excess 9.5 H 2.5 H 15.2 H 08/02/23 08/02/23 08/02/23 14:35 17:10 20:30 ABG pH 7.53 H 7.50 H 7.46 H ABG pCO2 47.7 H 51.0 H 57.4 H ABG pO2 96.3 81.7 85.5 ABG HCO3 39.8 H 39.5 H 40.3 H ABG O2 Saturation 99.1 96.9 95.6 ABG Base Excess 15.5 H 14.7 H 14.4 H 08/04/23 08/04/23 08/05/23 04:50 14:50 04:10 ABG pH 7.30 L 7.36 7.42 ABG pCO2 68.3 H* 57.3 H 51.3 H ABG pO2 75.8 L 91.0 78.7 L ABG HCO3 33.7 H 32.4 H 33.3 H ABG O2 Saturation 92.3 96.6 94.8 ABG Base Excess 5.4 H 6.2 H 8.0 H 08/07/23 04:33 ABG pH 7.39 ABG pCO2 45.0 ABG pO2 48.5 L ABG HCO3 27.5 H ABG O2 Saturation ABG Base Excess 2.3 H A&P Assessment and plan (1) COPD (chronic obstructive pulmonary disease): Qualifiers: COPD type: unspecified COPD Qualified Code(s): J44.9 - Chronic obstructive pulmonary disease, unspecified (2) Acute and chronic respiratory failure with hypoxia: (3) PNA (pneumonia): (4) Pleural effusion: (5) CHF (congestive heart failure): acute on chronic with preserved EF Qualifiers: Heart failure type: diastolic Heart failure chronicity: acute on chronic Qualified Code(s): I50.33 - Acute on chronic diastolic (congestive) heart failure (6) Ventilator dependence: (7) Respiratory failure: (8) Acute respiratory failure with hypoxia and hypercarbia: (9) Respiratory acidosis: (10) Multiorgan failure: Plan 72-year-old lady with COPD, CHF, immunocompromised on Humira ,currently admitted to the hospital with acute on chronic hypoxic respiratory failure with multiple recent hospital admissions for the same reason.Recent chest x-rays and CAT scans have shows bilateral infiltrates which may represent persisting pneumonic infiltrates. Hospital course has been notable for ventilator dependent respiratory failure, with acute worsening on August 02, 2023. # Acute on chronic hypoxic respiratory failure, currently ventilator dependent. Likely multifactorial relating to persistent pneumonic infiltrates versus pulmonary edema versus acute aspiration event on August 02. Recent chest x-rays and CAT scans have shows bilateral infiltrates which have been persistent over the past month. Status post bronchoscopy on 08/06/2023. Pending respiratory cultures from [facility]. Pending PJP PCR, AFB culture and MTB PCR from August 06, 2023 evaluation ongoing for opportunistic pneumonia Thus far evaluation has been significant for elevated beta glucan at 123. While this remains nonspecific, given that patient is immunocompromised, has been on multiple steroids over the past month for COPD exacerbations, clinical suspicion for pneumocystis pneumonia. Patient started empiric Bactrim treatment at PJP dosing on July 31, 2023.Currently renally dosed at Bactrim 2 tabs p.o. daily. This has been complicated by development of acute renal failure, creatinine trending up to 2.3 and persisting hyponatremia with following sodium down to 126 today. Will discontinue Bactrim today given worsening renal numbers, following urine output. Change presumptive PJP coverage while waiting for the PCR results to atovaquone 750 mg p.o. twice daily. Added methylprednisolone 40 mg IV every 8 hours, again for presumptive PJP treatment while awaiting PCR results. Titrate down to every 12 hours. She is on Humira, evaluation ongoing to rule out TB. AFB smear negative x 1 from July 27, 2023, positive specimens unable to be sent out. Now collected from [facility] performed on August 06, 2023. MTB PCR pending from [facility]. Previously submitted from sputum was declined as it was not a satisfactory specimen. Negative QuantiFERON, also previously negative from 2019. Reports history of PPD positivity which were deemed to be false positives Negative serum Aspergillus galactomannan Negative histoplasma and Coccidioides serology. Patient denies any history of recent travel. She has noted to have bilateral pleural effusions additionally, thoracentesis was attempted on her most recent admission for diagnostic purposes, however there was insufficient fluid to proceed. b-d glucan weakly positive. negative respiratory viral panel. Echocardiogram from July 01, 2023 showed normal left ventricular size systolic function and wall thickness without regional wall motion abnormalities. LVEF of 65%. Aortic valve sclerosis without stenosis. s/p Zosyn 07/25-08/03; then 08/05-current s/p vancomycin 07/24-07/30; then 08/05-08/07 #Gram-positive bacteremia, on 08/02 identified as Staph hominis 1/2 cutures likely contaminant blooc cx 08/03 negative to date Discontinue vancomycin Respiratory and blood cultures negative for MRSA #Acute kidney injury, prerenal possibly ATN. Currently on dialysis Appreciate nephrology recommendations Discontinue Bactrim CBC without any peripheral eosinophils, no rash, lower possibility of dress syndrome #Acute on chronic diasotlic HF Previously on Bumex, now on dialysis unclear at this time if dialysis would be needed long-term or not #Immunocompromised, on adalimumab, methrotrexate outpatient #A-fib with RVR Currently on amiodarone infusion Discontinue infusion. Changed to amiodarone 400 mg via NG tube not on a/c due to history of bleeding #Acute on chronic anemia Hemoglobin 7.1. Trend closely. Labs do not appear to have been drawn this morning for CBC. Unclear why. ? Protonix IV twice daily to continue ? Full Code DVT PPX: SCDs. GI ppx: protonix 40 IV BID Prognosis is poor. Nursing staff and updated bedside in a lot of detail. All questions were answered to his satisfaction. Plan for today: Continue ventilatory support, hemodialysis today, start weaning sedation, attempt to awaken patient and attempt extubation if tolerats weanign trial Attestations 2 Medical Necessity Statement*: coninued need for close respiratory support, pressors, vent dependence and multiple issues as detailed above Critical Care Time: The high probability of a clinically significant, sudden or life threatening deterioration of the patient's [respiratory, cardiac,] system(s) required my full and direct attention, intervention and personal management. The critical care time is as shown. This time is in addition to time spent performing any reported procedures but includes the following: [x] Data and vital sign review and interpretation [x] Patient assessment, examination and intervention [x] Documentation [x] Medication orders and management Coding Level of Care Code Critical Care >/= 30 minutes Critical care time (in minutes): 70 The high probability of a clinically significant, sudden or life threatening deterioration, as referenced in this documentation, required my full and direct attention, intervention and personal management. The critical care time shown is in addition to time spent performing any reported separately billable procedures and includes the following: [x] Data and vital sign review and interpretation [x ] Patient assessment, examination and intervention [x] Medication orders and management [x] Patient/Family updates as able [x] Care Coordination and Documentation. Diagnoses Chronic obstructive pulmonary disease, unspecified COPD type J44.9 COPD type: unspecified COPD Acute and chronic respiratory failure with hypoxia J96.21 PNA (pneumonia) J18.9 Pleural effusion J90 Acute on chronic diastolic congestive heart failure I50.33 Heart failure type: diastolic Heart failure chronicity: acute on chronic Ventilator dependence Z99.11 Respiratory failure J96.90 Acute respiratory failure with hypoxia and hypercarbia J96.01; J96.02 Respiratory acidosis E87.29 Multiorgan failure
[2023-08-07 11:12] LABS: Glucose Point of Care 179 mg/dL (70-110)
--- NOTE | 2023-08-07 11:47 | P.PN_ITS ---
Vitals/I&O/Wt Last Vital Signs Temp 97.9 F 08/07/23 09:00 Pulse 103 H 08/07/23 11:06 Resp 16 08/07/23 11:06 BP 129/105 08/07/23 11:00 Pulse Ox 97 08/07/23 11:06 O2 Del Method Mechanical Ventilation 08/07/23 11:06 O2 Flow Rate 6 08/02/23 08:20 FiO2 40 08/07/23 11:06 08/06/23 08/07/23 08/07/23 22:59 06:59 14:59 Intake Total 1419.566 / 0875.188 0741.417 / 3033.503 103.838 / 103.838 Output Total 2343 / 2343 100 / 2443 Balance -923.434 / -103.311 0527.417 / 590.503 103.838 / 103.838 Weight last 48 hrs Weight 115.575 kg Weight 115.122 kg Weight 113.988 kg Weight 113.988 kg Physical Exam 2 Narrative: on vent Urinary Catheter Management: Manzanares Latex: Cath Placed During This Visit: yes, but has since been removed by the nurse Reason for Continuing Indwelling Catheter: Accurate Measurement of Urinary Output in Critically Ill Patients Urinary Catheter Date of Insertion: 07/27/23 Urinary Catheter Time of Insertion: 19:45 Date Urinary Catheter Removed: 08/03/23 Time Urinary Catheter Discontinued: 14:30 Manzanares: Cath Placed During This Visit: no Reason for Continuing Indwelling Catheter: Accurate Measurement of Urinary Output in Critically Ill Patients Data 08/08/23 03:52 08/08/23 03:52 Micro: Microbiology 08/06/23 11:00 Gram Stain - Final Sputum - Endotracheal Tube Aspirate Sputum Culture - Preliminary Yeast species 08/04/23 19:30 Gram Stain - Final Sputum - Endotracheal Tube Aspirate Sputum Culture - Preliminary Yeast species 08/06/23 07:50 Gram Stain - Final Lung Right Lower Lobe Bronchoalveolar Lavage Culture - Preliminary 08/02/23 10:17 Blood Culture - Final Blood NO GROWTH AFTER 5 DAYS 08/02/23 10:10 Blood Culture - Final Blood Staphylococcus hominis A&P Assessment and plan (1) CYNTHIA (acute kidney injury): Plan 1. Acute on chronic kidney disease stage III: Baseline creatinine is in the 1 range, now has severe CYNTHIA with a creatinine of 3.9 and volume overload, patient became anuric in the last 24 hours. No significant response to diuretics. s/p temporary HD catheter placement and initiated hemodialysis for volume management. 2. Acute on chronic respiratory failure: Multifactorial, intubated currently, on pressors 3. Sepsis, secondary to pneumonia, on broad-spectrum antibiotics 4. A-fib 5. Morbid obesity Patient evaluated using audiovisual cart. Time spent 40 minutes. Attestations 2 Medical Necessity Statement*: per medicine Coding Level of Care Code Acute Code for [facility] Fwd Diagnoses CYNTHIA (acute kidney injury) N17.9
[2023-08-07] MEDS: amiodarone 200 mg Tablet 400 MG PO ×2 (12:28→16:55)
[2023-08-07] MEDS: heparin, porcine 1,000 unit/mL INJ 10 mL 10000 UNIT INTRACATH ×2 (12:52→15:42)
[2023-08-07] MEDS: heparin, porcine 1,000 unit/mL INJ 10 mL 1000 UNIT IV (15:41)
[2023-08-07] MEDS: fluconazole premix 200 MG/100 ML PREMIX 100 MG IV (16:14)
[2023-08-07] MEDS: NON-FORMULARY MEDICATION 750 EACH FEED TUBE (16:57)
--- NOTE | 2023-08-07 17:41 | PC.NURSE ---
Extubated 1735 by RT, placed on Bipap. Restraints removed. at bedside.
[2023-08-07 17:43] LABS: Glucose Point of Care 180 mg/dL (70-110)
--- NOTE | 2023-08-07 19:41 | PC.NURSE ---
[facility].
--- NOTE | 2023-08-07 21:37 | PM.PN ---
Subjective Subjective: Seen patient multiple times at bedside today-today morning she was on sedation She received dialysis yesterday Patient on minimal vent settings - Tapered off sedation, Tolerated pressure support; she was following commands;She appeared weak-I have explained in detail to the patient at bedside that given her multiple hospital admissions and multiple comorbidities-she is Very deconditioned-however she is tolerating pressure support ventilation will and following commands; Reported-this is a window of opportunity to extubate and see if she tolerates-He verbalized understanding She is extubated to BiPAP. Medications: Reviewed: Yes Vitals/I&O/Wt Last Vital Signs Temp 97.8 F 08/07/23 20:00 Pulse 90 08/07/23 20:00 Resp 19 H 08/07/23 20:00 BP 179/85 08/07/23 20:00 Pulse Ox 96 08/07/23 20:00 O2 Del Method BiPAP 08/07/23 20:00 O2 Flow Rate 6 08/02/23 08:20 FiO2 40 08/07/23 20:00 08/07/23 08/07/23 08/07/23 06:59 14:59 22:59 Intake Total 1220.417 / 3033.503 130.131 / 276.876 7895.343 / 3273.474 Output Total 100 / 2443 4146 / 4146 Balance 1120.417 / 590.503 130.131 / 130.131 -1002.657 / -872.526 Weight last 48 hrs Weight 239 lb 3.225 oz Weight 254 lb 12.8 oz Weight 253 lb 12.8 oz Weight 251 lb 4.8 oz Physical Exam Narrative: PHYSICAL EXAM: General: lying in bed, sedated and intubated. HEENT:NCAT, PERRLA, EOMI Neck: Supple Lungs: Diffuse crackles Heart: s1/s2, RRR Abd: soft, NT, ND, BS + Normoactive Extremities: No edema FULFILLMENT SPECIALIST: sedated and limited FULFILLMENT SPECIALIST exam possible. SKIN: no rash LDA: # CVC: Right internal jugular vein 08/02/2023 # Manzanares: Yes Urinary Catheter Management: Manzanares Latex: Cath Placed During This Visit: yes, but has since been removed by the nurse Reason for Continuing Indwelling Catheter: Accurate Measurement of Urinary Output in Critically Ill Patients Urinary Catheter Date of Insertion: 07/27/23 Urinary Catheter Time of Insertion: 19:45 Date Urinary Catheter Removed: 08/03/23 Time Urinary Catheter Discontinued: 14:30 Manzanares: Cath Placed During This Visit: no Reason for Continuing Indwelling Catheter: Accurate Measurement of Urinary Output in Critically Ill Patients Data 08/06/23 03:36 08/07/23 08:33 Micro: Microbiology 08/06/23 11:00 Gram Stain - Final Sputum - Endotracheal Tube Aspirate Sputum Culture - Preliminary Yeast species 08/04/23 19:30 Gram Stain - Final Sputum - Endotracheal Tube Aspirate Sputum Culture - Preliminary Yeast species 08/06/23 07:50 Gram Stain - Final Lung Right Lower Lobe Bronchoalveolar Lavage Culture - Preliminary 08/02/23 10:17 Blood Culture - Final Blood NO GROWTH AFTER 5 DAYS A&P Assessment and plan (1) Acute respiratory failure with hypoxia and hypercarbia: (2) Ventilator dependence: (3) CHF (congestive heart failure): Qualifiers: Heart failure type: diastolic Heart failure chronicity: acute on chronic Qualified Code(s): I50.33 - Acute on chronic diastolic (congestive) heart failure (4) Seronegative rheumatoid arthritis of both hands: (5) High risk medication use: (6) Morbid obesity: (7) Chronic atrial fibrillation: (8) CYNTHIA (acute kidney injury): Plan # Acute hypoxic/hypercapnic respiratory failure in patient with underlying COPD, diastolic heart failure, chronic bilateral pleural effusions, morbid obesity # History of rheumatoid arthritis on Humira and immunosuppressive medications-rule out underlying opportunistic infections # CYNTHIA on CKD-currently on Levophed # Chronic J-kys-cjyubdhly rate controlled-started on amiodarone drip # Hypokalemia and hypomagnesemia-supplement and monitor # Large bilateral pleural effusions #Sputum cultures positive for AFB; urine cultures positive for Amber albicans-patient is currently on fluconazole -Intubated and sedated-currently on fentanyl/propofol-she is on minimal vent settings-ABG acceptable patient baseline CO2 is around 60-made ventilator changes accordingly- -CTA 08/02/2023-ruled out PE; large bilateral pleural effusions; very difficult to do ultrasound-guided thoracentesis given her body habitus; however she was started on hemodialysis -Patient is on IV Bactrim (day 3 )as well as Zosyn--which may have been contributing to excess volume-along with A-fib RVR -She is on Levophed 6 mcg/hour-likely secondary to initiation of sedation vs septic shock -Bronchoscopy 10/07/2022-revealed copious amount of secretions blocking right lower lobe subsegments-they were suctioned out and BAL sent for various studies - Sugars are moderately controlled-On insulin scale coverage -workup so far negative for respiratory viral panel, COVID-19,; Given her immunosuppression for rheumatoid arthritis-extensive workup was sent - So for beta D glucan weekly positive-PCP PCR, histoplasma antigen, coccidioidomycosis-are pending; she was started on IV Bactrim on 07/31/2023 and started on steroids today; Due to worsening renal function and hyponatremia-Bactrim switched to atovaquone - She is in airborne isolation-sputum for MTB-is pending; TB QuantiFERON is negative -Hemodialysis as per renal team -Patient tolerated awakening trial as well as breathing trial-will extubate her to BiPAP ICU CHECKLIST: Problem list updated Verbal orders reviewed and signed Code Status: Full code Disposition: ICU Critically ill: Yes MD discussed with: Hospitalist, RN, RT Prognosis: Critical Family: updated about medical condition, plan of management, prognosis at bedside Analgesia: Fentanyl Glycemic Control: Scale coverage Nutrition: Trickle feeding Restraint Renewal (within 24 hrs): Yes Ulcer Prophylaxis: PPI Chemical Thromboprophylaxis: Prophylaxis: Heparin Mechanical Thromboprophylaxis: SCD Need for Central line: Yes for pressors Need for Manzanares catheter: Yes for urine output monitoring Attestations Medical Necessity Statement*: Critically ill in ICU. Time Spent in Patient Care: Greater than 35 minutes (>than 50% of time spent in counselling and/or direct pt care on unit). Critical Care Time: The high probability of a clinically significant, sudden or life threatening deterioration of the patient's [renal, respiratory, cardiovascular] system(s) required my full and direct attention, intervention and personal management. The critical care time is as shown. This time is in addition to time spent performing any reported procedures but includes the following: [x] Data and vital sign review and interpretation [x] Patient assessment, examination and intervention [x] Documentation [x] Medication orders and management Critical Care Time (min): 54 Coding Level of Care Code Acute Code for Chg Fwd Diagnoses Acute respiratory failure with hypoxia and hypercarbia J96.01; J96.02 Ventilator dependence Z99.11 Acute on chronic diastolic congestive heart failure I50.33 Heart failure type: diastolic Heart failure chronicity: acute on chronic Seronegative rheumatoid arthritis of both hands M06.041; M06.042 High risk medication use Z79.899 Morbid obesity E66.01 Chronic atrial fibrillation I48.20 CYNTHIA (acute kidney injury) N17.9 Time Spent (min) 54
[2023-08-07 23:29] LABS: Glucose Point of Care 152 mg/dL (70-110)
[2023-08-08] VITALS (104 sets, daily range): BP systolic 92–164; BP diastolic 48–109; PULSE 78–111; RESP 0–36; TEMP 36.7–37; O2SAT 88–100
[2023-08-08 04:35] LABS: Hematocrit 24.8 % (36-47); Lymphocytes # 0.2 10^3/uL (0.8-4.8); Lymphocytes % 2.8 %; Mean Corpuscular HGB Conc 30.6 g/dL (30-55); Mean Corpuscular Hemoglobin 26.7 pg (27-33); Mean Platelet Volume 9.8 fL (7.4-10.4); Monocytes # 0.3 10^3/uL (0.2-0.9); Monocytes % 3.7 %; Neutrophils # 7.37 10^3/uL (1.8-7.7); Nucleated Red Blood Cells % 0 %; Platelet Count 160 10^3/cmm (157-399); Red Blood Count 2.85 10^6/uL (3.85-5.65); White Blood Count 7.92 10^3/uL (3.29-11.43)
[2023-08-08] MEDS: chlorhexidine gluconate 4% Btl 118 mL 1 APPLIC TOPICAL (04:46)
[2023-08-08] MEDS: piperacillin-tazobactam 3.375 GM in sodium chloride 0.9% (plus) 50 ML IV ×2 (04:53→16:03)
[2023-08-08 04:58] LABS: Alanine Aminotransferase 26 U/L (0-33); Albumin Level 2.9 g/dL (3.5-5.2); Alkaline Phosphatase 94 U/L (35-105); Anion Gap 18.9 (5-19); Aspartate Amino Transferase 86 U/L (0-32); Blood Urea Nitrogen 22 mg/dL (8-23); Calcium 8.7 mg/dL (8.5-10.5); Carbon Dioxide 25 mmol/L (22-29); Chloride 90 mmol/L (98-107); Globulin 3.2 g/dL (1.3-4.6); Glucose 132 mg/dL (65-115); Osmolality Calculated 275 mOsm/kg (285-295); Potassium 3.9 mmol/L (3.5-5.1); Sodium 130 mmol/L (136-145); Total Bilirubin 0.2 mg/dL (0.15-1.2); Total Protein 6.1 g/dL (6.6-8.7)
--- NOTE | 2023-08-08 05:28 | PC.NURSE ---
NPO: Morning meds (cymbalta, levothyroxine, and mestinon) not given, Dr. Robert made aware @0508. Pt is NPO, unable to safely swallow at this time. No NG/OG in place.
[2023-08-08 05:37] LABS: Glucose Point of Care 141 mg/dL (70-110)
[2023-08-08 05:40] LABS: Glucose Point of Care 150 mg/dL (70-110)
[2023-08-08] MEDS: insulin lispro 100 unit/1 mL SUBCUT ×2 (06:32→18:14)
--- NOTE | 2023-08-08 07:17 | P.PN_ITS ---
Subjective 2 Subjective: extubated , on BIPAP currently s/p HD yesterday Medications: Reviewed: Yes Vitals/I&O/Wt Last Vital Signs Temp 98.0 F 08/08/23 05:00 Pulse 99 08/08/23 05:37 Resp 24 H 08/08/23 05:00 BP 134/50 08/08/23 05:00 Pulse Ox 96 08/08/23 05:00 O2 Del Method BiPAP 08/08/23 05:00 O2 Flow Rate 6 08/02/23 08:20 FiO2 40 08/08/23 05:00 08/07/23 08/08/23 08/08/23 22:59 06:59 14:59 Intake Total 3143.343 / 3273.474 0 / 3273.474 Output Total 4146 / 4146 50 / 4196 Balance -1002.657 / -872.526 -50 / -922.526 Weight last 48 hrs Weight 107.501 kg Weight 108.5 kg Weight 115.575 kg Weight 115.122 kg Physical Exam 2 Narrative: on bipap Urinary Catheter Management: Manzanares Latex: Cath Placed During This Visit: yes, but has since been removed by the nurse Reason for Continuing Indwelling Catheter: Accurate Measurement of Urinary Output in Critically Ill Patients Urinary Catheter Date of Insertion: 07/27/23 Urinary Catheter Time of Insertion: 19:45 Date Urinary Catheter Removed: 08/03/23 Time Urinary Catheter Discontinued: 14:30 Manzanares: Cath Placed During This Visit: no Reason for Continuing Indwelling Catheter: Accurate Measurement of Urinary Output in Critically Ill Patients Data 08/08/23 03:52 08/08/23 03:52 Micro: Microbiology 08/06/23 11:00 Gram Stain - Final Sputum - Endotracheal Tube Aspirate Sputum Culture - Preliminary Yeast species 08/04/23 19:30 Gram Stain - Final Sputum - Endotracheal Tube Aspirate Sputum Culture - Preliminary Yeast species 08/06/23 07:50 Gram Stain - Final Lung Right Lower Lobe Bronchoalveolar Lavage Culture - Preliminary 08/02/23 10:17 Blood Culture - Final Blood NO GROWTH AFTER 5 DAYS A&P Assessment and plan (1) CYNTHIA (acute kidney injury): Plan 1. Acute on chronic kidney disease stage III: Baseline creatinine is in the 1 range, now has severe CYNTHIA with a creatinine of 3.9 and volume overload, patient became anuric in the last 24 hours. No significant response to diuretics. s/p temporary HD catheter placement and initiated hemodialysis for volume management.s/p HD yesterday , assess daily for HD needs 2. Acute on chronic respiratory failure: Multifactorial, extubated , off pressors 3. Sepsis, secondary to pneumonia, on broad-spectrum antibiotics 4. A-fib 5. Morbid obesity Patient evaluated using audiovisual cart. Time spent 20 minutes. Attestations 2 Medical Necessity Statement*: per medicine Coding Level of Care Code Acute Code for [facility] Fwd Diagnoses CYNTHIA (acute kidney injury) N17.9
[2023-08-08 07:27] LABS: Glucose Point of Care 142 mg/dL (70-110)
[2023-08-08] MEDS: ipratropium-albuterol 3 mL Neb INHALATION ×4 (07:43→20:12)
[2023-08-08] MEDS: pantoprazole 40 mg SDV IVP ×2 (08:11→18:14)
[2023-08-08] MEDS: methylPREDNISolone sod succ 40 mg/mL INJ IVP ×2 (08:11→20:11)
[2023-08-08] MEDS: nystatin powder 15 gm Btl 1 APPLIC TOPICAL ×2 (08:12→18:15)
[2023-08-08] MEDS: chlorhexidine gluconate 0.12% Btl 473 mL 15 ML MUCOUS MEM ×2 (08:12→18:14)
[2023-08-08 08:53] LABS: ABG PCO2 52.2 mmHg (35-45); ABG PH Result 7.32 (7.35-7.45); Alveolar-Arterial Oxygen Gradi 10.2 mmHg (5-10); Arterial Blood Gas Hematocrit 23.4 % (37-47); Base Excess ABG 0.3 mmol/L (-2.0-2.0); Blood Gas Operator Identificat GD; Blood Gas Sample Site Brachial, right; Blood Gas Sample Type Arterial; Carboxyhemoglobin 1.7 %THgb (0.4-20.1); HCO3 ABG 26.7 mmol/L (22-26); HGB O2 Sat 91.2 % (95-100); Ionized Calcium Level - ABG 1.2 mmol/L (1.1-1.4); Methemoglobin 1.5 % (0.4-1.5); Oxygen Device BIPAP; Oxygen Saturation ABG 94.2; PO2 ABG 76.3 mmHg (80.0-100.0); PO2 FiO2 Ratio Arterial Blood 0; Potassium Level - ABG 3.6 mmol/L (3.5-5.0); Total Hemoglobin 7.7 g/dL (12-16)
--- NOTE | 2023-08-08 10:11 | PM.PN ---
Subjective Subjective: Extubated to BiPAP yesterday. Since then has been lethargic. Unable to follow commands though she did appear to have moved her toes to commands earlier this morning. At the time of my assessment patient is very drowsy, lethargic, does not follow commands to hold my fingers or move her toes. Opens eyes to calling her name but not much else. Per at bedside she was shaking yes and no to questions earlier this morning. Medications: Reviewed: Yes Vitals/I&O/Wt Last Vital Signs Temp 98.2 F 08/08/23 08:09 Pulse 99 08/08/23 09:05 Resp 16 08/08/23 07:40 BP 134/50 08/08/23 05:00 Pulse Ox 96 08/08/23 09:05 O2 Del Method BiPAP 08/08/23 07:40 O2 Flow Rate 6 08/02/23 08:20 FiO2 30 08/08/23 09:05 08/07/23 08/08/23 08/08/23 22:59 06:59 14:59 Intake Total 3143.343 / 3273.474 0 / 3273.474 50 / 50 Output Total 4146 / 4146 50 / 4196 Balance -1002.657 / -872.526 -50 / -922.526 50 / 50 Weight last 48 hrs Weight 107.501 kg Weight 108.5 kg Weight 115.575 kg Weight 115.122 kg Physical Exam Narrative: General: Lethargic, drowsy, extremely deconditioned HEENT: PERRLA, pupils bilaterally equal and reactive, pallors not present Chest: Reduced breath sounds right lower lobe CVS: S1-S2 regular, no murmurs, no tachycardia, no gallops, no rubs Abdomen: Soft, nontender, no organomegaly, bowel sounds present Urinary Catheter Management: Manzanares Latex: Cath Placed During This Visit: yes, but has since been removed by the nurse Reason for Continuing Indwelling Catheter: Accurate Measurement of Urinary Output in Critically Ill Patients Urinary Catheter Date of Insertion: 07/27/23 Urinary Catheter Time of Insertion: 19:45 Date Urinary Catheter Removed: 08/03/23 Time Urinary Catheter Discontinued: 14:30 Manzanares: Cath Placed During This Visit: no Reason for Continuing Indwelling Catheter: Accurate Measurement of Urinary Output in Critically Ill Patients Data 08/08/23 03:52 08/08/23 03:52 Micro: Microbiology 08/06/23 11:00 Gram Stain - Final Sputum - Endotracheal Tube Aspirate Sputum Culture - Preliminary Yeast species 08/04/23 19:30 Gram Stain - Final Sputum - Endotracheal Tube Aspirate Sputum Culture - Preliminary Yeast species 08/06/23 07:50 Gram Stain - Final Lung Right Lower Lobe Bronchoalveolar Lavage Culture - Preliminary 08/02/23 10:17 Blood Culture - Final Blood NO GROWTH AFTER 5 DAYS A&P Assessment and plan (1) COPD (chronic obstructive pulmonary disease): Qualifiers: COPD type: unspecified COPD Qualified Code(s): J44.9 - Chronic obstructive pulmonary disease, unspecified (2) Acute and chronic respiratory failure with hypoxia: (3) PNA (pneumonia): (4) Pleural effusion: (5) CHF (congestive heart failure): acute on chronic with preserved EF Qualifiers: Heart failure type: diastolic Heart failure chronicity: acute on chronic Qualified Code(s): I50.33 - Acute on chronic diastolic (congestive) heart failure (6) Ventilator dependence: (7) Respiratory failure: (8) Acute respiratory failure with hypoxia and hypercarbia: (9) Respiratory acidosis: (10) Multiorgan failure: Plan 72-year-old lady with COPD, CHF, immunocompromised on Humira ,currently admitted to the hospital with acute on chronic hypoxic respiratory failure with multiple recent hospital admissions for the same reason.Recent chest x-rays and CAT scans have shows bilateral infiltrates which may represent persisting pneumonic infiltrates. Hospital course has been notable for ventilator dependent respiratory failure, with acute worsening on August 02, 2023. # Acute on chronic hypoxic respiratory failure, currently ventilator dependent. Likely multifactorial relating to persistent pneumonic infiltrates versus pulmonary edema versus acute aspiration event on August 02. Recent chest x-rays and CAT scans have shows bilateral infiltrates which have been persistent over the past month. Status post bronchoscopy on 08/06/2023. Pending respiratory cultures from [facility]. Pending PJP PCR, AFB culture and MTB PCR from August 06, 2023 evaluation ongoing for opportunistic pneumonia Thus far evaluation has been significant for elevated beta glucan at 123. While this remains nonspecific, given that patient is immunocompromised, has been on multiple steroids over the past month for COPD exacerbations, clinical suspicion for pneumocystis pneumonia. Patient started empiric Bactrim treatment at PJP dosing on July 31, 2023.Currently renally dosed at Bactrim 2 tabs p.o. daily. This has been complicated by development of acute renal failure, creatinine trending up to 2.3 and persisting hyponatremia with following sodium down to 126 today. Will discontinue Bactrim today given worsening renal numbers, following urine output. Change presumptive PJP coverage while waiting for the PCR results to atovaquone 750 mg p.o. twice daily. Added methylprednisolone 40 mg IV every 8 hours, again for presumptive PJP treatment while awaiting PCR results. Titrate down to every 12 hours. She is on Humira, evaluation ongoing to rule out TB. AFB smear negative x 1 from July 27, 2023, positive specimens unable to be sent out. Now collected from [facility] performed on August 06, 2023. MTB PCR pending from [facility]. Previously submitted from sputum was declined as it was not a satisfactory specimen. Negative QuantiFERON, also previously negative from 2019. Reports history of PPD positivity which were deemed to be false positives Negative serum Aspergillus galactomannan Negative histoplasma and Coccidioides serology. Patient denies any history of recent travel. She has noted to have bilateral pleural effusions additionally, thoracentesis was attempted on her most recent admission for diagnostic purposes, however there was insufficient fluid to proceed. b-d glucan weakly positive. negative respiratory viral panel. Echocardiogram from July 01, 2023 showed normal left ventricular size systolic function and wall thickness without regional wall motion abnormalities. LVEF of 65%. Aortic valve sclerosis without stenosis. s/p Zosyn 07/25-08/03; then 08/05-current s/p vancomycin 07/24-07/30; then 08/05-08/07 #Gram-positive bacteremia, on 08/02 identified as Staph hominis 1/2 cutures likely contaminant blooc cx 08/03 negative to date Discontinue vancomycin Respiratory and blood cultures negative for MRSA #Acute kidney injury, prerenal possibly ATN. Currently on dialysis Appreciate nephrology recommendations Discontinue Bactrim CBC without any peripheral eosinophils, no rash, lower possibility of dress syndrome #Acute on chronic diasotlic HF Previously on Bumex, now on dialysis unclear at this time if dialysis would be needed long-term or not #Immunocompromised, on adalimumab, methrotrexate outpatient #A-fib with RVR Currently on amiodarone infusion Discontinue infusion. Changed to amiodarone 400 mg via NG tube not on a/c due to history of bleeding #Acute on chronic anemia Hemoglobin 7.1. Trend closely. Labs do not appear to have been drawn this morning for CBC. Unclear why. ? Protonix IV twice daily to continue ? Full Code DVT PPX: SCDs. GI ppx: protonix 40 IV BID Prognosis is poor. Nursing staff and updated bedside in a lot of detail. All questions were answered to his satisfaction. Plan for today 08/08: Extubated yesterday. ABG performed this morning 7.32/52.2/76.3. Settings adjusted. Not significantly hypercapnic to explain her visit persisting lethargy at this time. Check COVID antigen. Place NGT to administer oral meds. Start TPN. Place PICC line as anticipated prolonged hospitalization with need for continuous IV access. Respiratory cultures with yeast. Patient adequately covered with fluconazole. Suspect this is related to thrush. Still pending PCP PCR and MTB PCR. Will follow-up pending studies. Discontinue piperacillin/tazobactam over the next 24 hours if cultures remain unrevealing for other organisms. Continue IV steroids. Attestations Medical Necessity Statement*: Continued close monitoring of respiratory status and mental status. Starting TPN. NGT. Follow-up pending studies Critical Care Time: The high probability of a clinically significant, sudden or life threatening deterioration of the patient's [cardiac, respiratory] system(s) required my full and direct attention, intervention and personal management. The critical care time is as shown. This time is in addition to time spent performing any reported procedures but includes the following: [x] Data and vital sign review and interpretation [x] Patient assessment, examination and intervention [x] Documentation [x] Medication orders and management Critical Care Time (min): 60 Coding Level of Care Code Acute Code for Chg Fwd Diagnoses Chronic obstructive pulmonary disease, unspecified COPD type J44.9 COPD type: unspecified COPD Acute and chronic respiratory failure with hypoxia J96.21 PNA (pneumonia) J18.9 Pleural effusion J90 Acute on chronic diastolic congestive heart failure I50.33 Heart failure type: diastolic Heart failure chronicity: acute on chronic Ventilator dependence Z99.11 Respiratory failure J96.90 Acute respiratory failure with hypoxia and hypercarbia J96.01; J96.02 Respiratory acidosis E87.29 Multiorgan failure
--- NOTE | 2023-08-08 10:39 | ECG_ITS ---
[facility] [place] [facility] Date: 2023-08-08 Pat Name: Myesha Parker Department: Room: ICU11 Gender: Female Coating Manager: : [id number] Requested By: Opal Marie Order Number: [id number] Wilbur MD: Keisha Coronel M.D. Measurements Intervals [place] Rate: 84 P: 0 UT: 0 QRS: -83 QRSD: 158 T: 89 QT: 448 QTc: 531 Interpretive Statements ATRIAL FIBRILLATION RIGHT BUNDLE BRANCH BLOCK [120+ ms QRS DURATION, UPRIGHT V1, 40+ ms S IN I/aVL/V4/V5/V6] LEFT ANTERIOR FASCICULAR BLOCK [QRS AXIS <= -45, QR IN I, RS IN II] POSSIBLE ANTERIOR MYOCARDIAL INFARCTION , PROBABLY OLD [30 ms Q WAVE IN V3/V4, OR R < 0.2 mV IN V4] INTERPRETATION BASED ON A DEFAULT AGE OF 40 YEARS Compared to ECG 08/02/2023 08:52:12 Aberrant conduction of supraventricular beat(s) no longer present Ventricular premature complex(es) no longer present ST (T wave) deviation no longer present Myocardial infarct finding still present Electronically Signed On 08-08-2023 21:46:55 TRACTOR MECHANIC APPRENTICE by Keisha Coronel M.D. [id number] f
[2023-08-08 11:08] LABS: Glucose Point of Care 134 mg/dL (70-110)
--- NOTE | 2023-08-08 11:47 | XR_ITS ---
WS: [id number] Exam: XR chest 1V portable [id number] Date/Time of Exam: 08/08/2023 11:47 AM Reason For Exam: Post PICC insertion Comparison 08/07/2023. A right-sided PICC line has been placed and ends in the mid SVC. The lungs are fully expanded. The he art is enlarged but unchanged in size. No consolidated infiltrates are seen. Bony structures are inta ct. A right-sided IJ catheter ends in the lower SVC. ET tube and NG tube have been removed since the last study. IMPRESSION: 1. Right-sided PICC line ends in the mid SVC. 2. Right-sided IJ catheter ending in the lower SVC. 3. No acute infiltrates are noted.
[2023-08-08] MEDS: FUROsemide 10 mg/mL SDV 10mL 80 MG IVP (11:54)
--- NOTE | 2023-08-08 13:09 | XR_ITS ---
WS: [id number] Exam: XR chest 1V portable [id number] Date/Time of Exam: 08/08/2023 1:13 PM Reason For Exam: NG tube placement Compared to earlier exam performed on the same day at 1:43 p.m. An NG tube has been placed and extends below the diaphragm in the region of the stomach. The tip of t he tube is out of the [id number]. The remainder of the chest is essentially unchanged since the la test exam. IMPRESSION: 1. NG tube entering the stomach but the tip is out of the [id number]. No other change.
--- NOTE | 2023-08-08 13:45 | PC.NURSE ---
Triple lumen PICC placed to right basilic vein. Referred to vascular access nurse for PICC placement for TPN. Pt at bedside. Risks and benefits discussed and informed consent obtained from spouse. Right arm assessed with right basilic measuring 4.5 mm, straight, and apparent best choice for placement. Using sterile technique and MST, right basilic vein accessed x 1 stick. Mid-arm circumference measured 10 cm from right AC 35 cm. Trimmed triple lumen cath 37.5 cm with 0 cm external length noted. CXR shows tip in mid SVC, ok to use per radiologist. Line secured with stat lock. Insertion site covered with Biopatch and TSM. Report given to bedside nurseRanjeet.
--- NOTE | 2023-08-08 14:33 | PC.SOCIAL ---
IMM Update pg 2 of IMM updated and reviewed w/ patient. Copy provided and copy dated, initialed and placed in chart.
[2023-08-08 14:56] LABS: SARS Covid-2 Antigen negative (Negative)
[2023-08-08] MEDS: fluconazole premix 200 MG/100 ML PREMIX 100 MG IV (16:05)
--- NOTE | 2023-08-08 16:13 | PC.SLP ---
FISHER MUSSEL will attempt to assess when the pt is more alert and able to follow directives.
[2023-08-08 16:34] LABS: ABG PCO2 46.2 mmHg (35-45); ABG PH Result 7.35 (7.35-7.45); Arterial Blood Gas Hematocrit 22.8 % (37-47); Base Excess ABG -0.5 mmol/L (-2.0-2.0); Blood Gas Allen Test Pos; Blood Gas Operator Identificat GD; Blood Gas Sample Site Brachial, left; Blood Gas Sample Type Arterial; HCO3 ABG 25.3 mmol/L (22-26); Oxygen Device BIPAP; PO2 ABG 68.6 mmHg (80.0-100.0); PO2 FiO2 Ratio Arterial Blood 0
--- NOTE | 2023-08-08 16:39 | P.PN_ITS ---
Subjective 2 Subjective: Extubated yesterday to BiPAP-patient maintaining saturation Still appears more drowsy She wiggles her toes but is extremely weak Hemodialysis as per nephro team Other labs and imaging reviewed Medications: Reviewed: Yes Vitals/I&O/Wt Last Vital Signs Temp 98.5 F 08/08/23 10:37 Pulse 101 H 08/08/23 16:38 Resp 22 H 08/08/23 16:21 BP 148/59 08/08/23 12:15 Pulse Ox 92 08/08/23 16:38 O2 Del Method BiPAP 08/08/23 16:21 O2 Flow Rate 6 08/02/23 08:20 FiO2 30 08/08/23 16:38 08/08/23 08/08/23 08/08/23 06:59 14:59 22:59 Intake Total 0 / 3273.474 50 / 50 Output Total 50 / 4196 Balance -50 / -922.526 50 / 50 Weight last 48 hrs Weight 237 lb Weight 239 lb 3.225 oz Weight 254 lb 12.8 oz Weight 253 lb 12.8 oz Physical Exam 2 Narrative: General: Appears extremely drowsy, weak not in acute respiratory distress HEENT: conj clear, EOMI, PERRL, mmm, Neck: supple, no meningismus Heme: no cervical LAP Respiratory: Inspection: No visible deformity of the chest wall Palpation: Trachea is mildly deviated to the right, bilateral symmetric expansion Percussion: Bilateral tympanic percussion note both anterior and posteriorly Auscultation: Diffuse crackles Cardiovascular: rrr, nl s1s2, no mrg Abdomen: soft, nt, nd, no r/g, bs+ Extremities: pulses +, 1+ pitting pedal edema, no c/c : no CVA tenderness Skin: intact, no rash MSK: no back or neck pain Neurologic: grossly intact Urinary Catheter Management: Manzanares Latex: Cath Placed During This Visit: yes, but has since been removed by the nurse Reason for Continuing Indwelling Catheter: Accurate Measurement of Urinary Output in Critically Ill Patients Urinary Catheter Date of Insertion: 07/27/23 Urinary Catheter Time of Insertion: 19:45 Date Urinary Catheter Removed: 08/03/23 Time Urinary Catheter Discontinued: 14:30 Manzanares: Cath Placed During This Visit: no Reason for Continuing Indwelling Catheter: Accurate Measurement of Urinary Output in Critically Ill Patients Data 08/10/23 04:01 08/10/23 04:01 Other Labs: Radiology Impressions Chest CTA 08/02/23 17:42 IMPRESSION: 1. Negative for pulmonary embolus. 2. Endotracheal tube and enteric tube seen in place. 3. Right-sided central venous catheter. 4. Large bilateral pleural effusions. 5. Several enlarged mediastinal lymph nodes measuring up to 17 mm, nonspecific. 6. Cardiomegaly. 7. Coronary artery atherosclerotic calcifications. 8. Cirrhotic liver. 9. Hepatic steatosis. 10. Cholecystectomy. 11. Bilateral right greater than left airspace infiltrates. 12. Left kidney 16 mm exophytic probable hyperdense cyst, nonemergent ultrasound could further characterize this. 13. Main pulmonary artery is somewhat prominent which can be a finding of pulmonary artery hypertension. COMMENTS: Consistent with the [employer]'s Incidental Findings Committee white paper (J Am Cesar Radiol 2018): Any incidental renal lesion less than 1 cm or classified as too small to characterize, or any incidental cystic renal lesion characterized as simple-appearing, is likely benign. No follow-up imaging is recommended for these lesions per consensus recommendations based on imaging criteria. Abdomen X-Ray 08/04/23 14:43 IMPRESSION: Air-filled structure positioned in the midline lower abdomen may represent a low-lying stomach. Dilated bowel loop/obstruction cannot be excluded. Laboratory Results WBC 6.07 10^3/uL (3.29-11.43) 08/10/23 04:01 RBC 3.26 10^6/uL (3.85-5.65) L 08/10/23 04:01 Hgb 8.80 g/dL (11.27-16.99) L 08/10/23 04:01 Hct 28.2 % (36-47) L 08/10/23 04:01 MCV 86.5 fl (85-98) 08/10/23 04:01 MCH 27.0 pg (27-33) 08/10/23 04:01 MCHC 31.2 g/dL (30-55) 08/10/23 04:01 RDW 17.0 % (12.1-15.1) H 08/10/23 04:01 Plt Count 138 10^3/cmm (157-399) L 08/10/23 04:01 MPV 9.6 fL (7.4-10.4) 08/10/23 04:01 Neut % (Auto) 92.0 % 08/10/23 04:01 Lymph % (Auto) 2.8 % 08/10/23 04:01 Mobile % (Auto) 4.3 % 08/10/23 04:01 Eos % (Auto) 0.2 % 08/10/23 04:01 Baso % (Auto) 0.0 % 08/10/23 04:01 Neut # (Auto) 5.59 10^3/uL (1.8-7.7) 08/10/23 04:01 Lymph # (Auto) 0.2 10^3/uL (0.8-4.8) L 08/10/23 04:01 Mobile # (Auto) 0.3 10^3/uL (0.2-0.9) 08/10/23 04:01 Eos # (Auto) 0.0 10^3/uL (0.0-0.8) 08/10/23 04:01 Baso # (Auto) 0.0 10^3/uL (0.0-0.1) 08/10/23 04:01 Nucleated RBC % (auto) 0.8 % 08/10/23 04:01 Nucleated RBCs # 0.1 /100WBC 08/10/23 04:01 PT 14.70 SECONDS (12.1-14.9) 08/04/23 04:55 INR 1.11 (0.8-1.2) 08/04/23 04:55 APTT 25.9 SECONDS (23.9-36.7) 08/02/23 17:51 Fibrinogen 556 mg/dL (174-498) H 08/02/23 17:51 Fibrin Degrad Products <5 mcg/mL (LESS THAN 5) 08/02/23 17:58 D-Dimer 0.74 ug/mLFEU (0-0.59) H 08/02/23 17:51 Specimen Type Arterial 08/08/23 16:15 Sample Site Brachial, left 08/08/23 16:15 ABG pH 7.35 (7.35-7.45) 08/08/23 16:15 ABG pCO2 46.2 mmHg (35-45) H 08/08/23 16:15 ABG pO2 68.6 mmHg (80.0-100.0) L 08/08/23 16:15 ABG PO2/FiO2 Ratio 0 08/08/23 16:15 ABG HCO3 25.3 mmol/L (22-26) 08/08/23 16:15 ABG O2 Saturation 94.2 08/08/23 08:35 ABG Base Excess -0.5 mmol/L (-2.0-2.0) 08/08/23 16:15 Memo Test Pos 08/08/23 16:15 A-a O2 Gradient 10.2 mmHg (5-10) H 08/08/23 08:35 Hematocrit 22.8 % (37-47) L 08/08/23 16:15 Hgb O2 Saturation 91.2 % (95-100) L 08/08/23 08:35 Carboxyhemoglobin 1.7 %THgb (0.4-20.1) 08/08/23 08:35 Methemoglobin 1.5 % (0.4-1.5) 08/08/23 08:35 Total Hemoglobin 7.7 g/dL (12-16) L 08/08/23 08:35 Sodium 130.0 mmol/L (131-143) L 08/08/23 08:35 Potassium 3.6 mmol/L (3.5-5.0) 08/08/23 08:35 Glucose 122.0 mg/dL (70-115) H 08/08/23 08:35 Ionized Calcium 1.2 mmol/L (1.1-1.4) 08/08/23 08:35 O2 Delivery Device Bipap 08/08/23 16:15 O2 Liters/Min 5.0 % 07/25/23 15:12 FiO2 30.0 % 08/08/23 16:15 Tidal Volume 0.40 08/07/23 04:33 PEEP 8.0 cmH20 08/04/23 14:50 [employer] Director ID Gd 08/08/23 16:15 Sodium 130 mmol/L (136-145) L 08/10/23 04:01 Potassium 3.9 mmol/L (3.5-5.1) 08/10/23 04:01 Chloride 92 mmol/L (98-107) L 08/10/23 04:01 Carbon Dioxide 25 mmol/L (22-29) 08/10/23 04:01 Anion Gap 16.9 (5-19) 08/10/23 04:01 BUN 29 mg/dL (8-23) H 08/10/23 04:01 Creatinine 2.7 mg/dL (0.5-0.9) H 08/10/23 04:01 GFR Calculation Not Reportable 08/10/23 04:01 Glucose 231 mg/dL (65-115) H 08/10/23 04:01 POC Glucose 211 mg/dL (70-110) H 08/10/23 11:35 Calculated Osmolality 283 mOsm/kg (285-295) L 08/10/23 04:01 Lactate 3.6 mmol/L (0.5-2.2) H 08/04/23 15:18 Calcium 8.9 mg/dL (8.5-10.5) 08/10/23 04:01 Phosphorus 5.9 mg/dL (2.5-4.5) H 08/05/23 03:45 Magnesium 2.0 mg/dL (1.7-2.3) 08/10/23 04:01 Iron 50 ug/dL (37-145) 08/04/23 04:45 TIBC 273 mcg/dl 08/04/23 04:45 % Saturation 18.3 % (20-50) L 08/04/23 04:45 Unsat Iron Binding 223 ug/dL (112-347) 08/04/23 04:45 Ferritin 110 ng/mL (15-150) 08/04/23 04:45 Total Bilirubin 0.2 mg/dL (0.15-1.2) 08/10/23 04:01 AST 58 U/L (0-32) H 08/10/23 04:01 ALT 32 U/L (0-33) 08/10/23 04:01 Alkaline Phosphatase 90 U/L (35-105) 08/10/23 04:01 Troponin T Baseline 43 ng/L (0-10) H 08/02/23 17:51 Troponin T 120 Minute 47.08 ng/L (0-10) H 08/02/23 20:05 Delta Troponin T 4.08 ABS# (0-10) 08/02/23 20:05 Troponin T Hi Sens 6Hr 47.70 ng/L (0-10) H 08/02/23 23:47 Troponin T Hi Sens 6Hr Delta 4.70 ng/L (0-12) 12/07/23 23:47 NT-Pro-B Natriuret Pep 4242 pg/mL (0-125) H 08/02/23 17:51 Total Protein 6.1 g/dL (6.6-8.7) L 08/10/23 04:01 Albumin 3.3 g/dL (3.5-5.2) L 08/10/23 04:01 Globulin 2.8 g/dL (1.3-4.6) 08/10/23 04:01 Vitamin B12 799 pg/mL (232-1245) 08/04/23 04:45 25-OH Vitamin D Total 35 ng/mL (30-100) 08/04/23 04:45 Procalcitonin 0.47 ng/mL (0-0.5) 08/04/23 04:45 Urine Color Dark yellow (Yellow) 07/25/23 11:54 Urine Appearance Hazy (CLEAR) A 07/25/23 11:54 Urine pH 5 (5-7) 07/25/23 11:54 Ur Specific Sherrill 1.020 (1.005-1.030) 07/25/23 11:54 Urine Protein Trace (Negative) 07/25/23 11:54 Urine Glucose (UA) Norm (Normal) 07/25/23 11:54 Urine Ketones Negative (Negative) 07/25/23 11:54 Urine Blood Neg (Negative) 07/25/23 11:54 Urine Nitrate Negative (Negative) 07/25/23 11:54 Urine Bilirubin Neg (Negative) 07/25/23 11:54 Urine Urobilinogen Norm mg/dL (Negative) 07/25/23 11:54 Ur Leukocyte Esterase Negative (Negative) 07/25/23 11:54 Urine RBC 0-4 /hpf (0-2) H 07/25/23 11:54 Urine WBC 15-25 /hpf (0-5) H 07/25/23 11:54 Ur Squamous Epith Cells 10-15 /hpf (0-5) H 07/25/23 11:54 Ur Transition Epith Cell 5-10 /hpf 07/25/23 11:54 Amorphous Sediment Not Reportable 07/25/23 11:54 Urine Bacteria Trace /hpf (NONE) 07/25/23 11:54 Hyaline Casts 5-10 /lpf H 07/25/23 11:54 Urine Mucus Trace /hpf 07/25/23 11:54 Bronch Specimen Source Right lower lobe 08/06/23 07:50 Bronchial Fluid Color Slight pink 08/06/23 07:50 Bronchial Fluid Appearance Hazy (CLEAR) 08/06/23 07:50 Bronch Cells Counted 200 08/06/23 07:50 Bronchial Neutrophils 29.00 % (0.9-2.3) H 08/06/23 07:50 Bronchial Lymphocytes 3.00 % (10.71-12.91) L 08/06/23 07:50 Bronchial Eosinophils 1.00 % (0.13-0.25) H 08/06/23 07:50 Bronchial Macrophages 67.00 % (83.6-86.8) L 08/06/23 07:50 Bronchial Diff Comment Yes 08/06/23 07:50 Vancomycin Trough 12.0 ug/mL (10-15) 07/28/23 14:08 Digoxin 0.6 ng/mL (0.6-1.2) 08/04/23 04:45 C. difficile Tox (PCR) Not detected (NOT DETECTED) 08/09/23 14:35 Coccidioides immitis CF <1:2 07/26/23 08:55 Coronavirus 229E (PCR) Not detected (NOT DETECT) 07/25/23 15:47 Hep Bs Antigen Non-reactive (Nonreactive) 08/05/23 03:45 Hep Bs Antibody < 3.5 (11.5-1000) L 08/05/23 03:45 Histo Mycel H Protein Negative 07/26/23 08:55 Histo Mycel M Protein Negative 07/26/23 08:55 U Histop Galact Ag Qnt <0.2 ng/mL 07/25/23 11:54 Influenza Type A Ag negative (Negative) 07/25/23 15:47 Influenza Type B Ag negative (Negative) 07/25/23 15:47 Myco Comp PCR Spec Srce Cancelled 08/06/23 07:50 Pneumocystis Source Right lower lobe 08/06/23 07:50 Pneumocyst jirovecii PCR Not detected 08/06/23 07:50 Aspergillus Source Whole blood 08/06/23 03:36 Aspergillus Ag (EIA) Not detected 08/06/23 07:50 Aspergillus sp (PCR) Not detected 08/06/23 03:36 A. fumigatus (PCR) Not detected 08/06/23 03:36 A. galactomannan Ag EIA Not detected 07/26/23 08:55 A. galactomannan Ag Idx <0.50 08/06/23 07:50 A. terreus (PCR) Not detected 08/06/23 03:36 SARS-CoV-2 (PCR) Not detected (NOT DETECT) 07/25/23 15:47 SARS-CoV-2 Ag (Rapid) negative (Negative) 08/08/23 14:15 MRSA (PCR) Not detected (NOT DETECTED) 08/04/23 15:18 TB (QFT) Gold In Tube Negative (NEGATIVE) 07/26/23 08:55 TB Test (QFT) Nil 0.04 IU/mL 07/26/23 08:55 TB Test (QFT) Mitogen 8.86 IU/mL 07/26/23 08:55 TB Test Mitogen - Nil 0.00 IU/mL 07/26/23 08:55 TB Test TB -Nil <0.00 IU/mL 07/26/23 08:55 Beta-(1,3)-D-Glucan 123 pg/mL H 07/26/23 08:55 B-(1,3)-D-Glucan Intrp Positive A 07/26/23 08:55 M.tuberculosis Cmplx PCR Cancelled 08/06/23 07:50 Misc Test Reference Cancelled 07/30/23 11:20 Blood Type O Positive 08/09/23 12:31 Rho(D) Type Rh positive 08/09/23 12:31 Antibody Screen Negative 08/09/23 12:31 Crossmatch See Detail 08/09/23 12:31 Micro: Microbiology 08/06/23 11:00 Gram Stain - Final Sputum - Endotracheal Tube Aspirate Sputum Culture - Preliminary Yeast species 08/04/23 19:30 Gram Stain - Final Sputum - Endotracheal Tube Aspirate Sputum Culture - Preliminary Yeast species 08/06/23 07:50 Gram Stain - Final Lung Right Lower Lobe Bronchoalveolar Lavage Culture - Preliminary A&P Assessment and plan (1) Acute respiratory failure with hypoxia and hypercarbia: (2) Ventilator dependence: (3) CHF (congestive heart failure): Qualifiers: Heart failure type: diastolic Heart failure chronicity: acute on chronic Qualified Code(s): I50.33 - Acute on chronic diastolic (congestive) heart failure (4) Seronegative rheumatoid arthritis of both hands: (5) High risk medication use: (6) Morbid obesity: (7) Chronic atrial fibrillation: (8) CYNTHIA (acute kidney injury): Plan # Acute hypoxic/hypercapnic respiratory failure in patient with underlying COPD, diastolic heart failure, chronic bilateral pleural effusions, morbid obesity # History of rheumatoid arthritis on Humira and immunosuppressive medications- rule out underlying opportunistic infections # CYNTHIA on CKD-currently on Levophed # Chronic B-tme-opzchtkfi rate controlled-started on amiodarone drip # Hypokalemia and hypomagnesemia-supplement and monitor # Large bilateral pleural effusions #Sputum cultures positive for AFB; urine cultures positive for Amber albicans- patient is currently on fluconazole -Intubated and sedated-currently on fentanyl/propofol-she is on minimal vent settings-ABG acceptable patient baseline CO2 is around 60-made ventilator changes accordingly- -CTA 08/02/2023-ruled out PE; large bilateral pleural effusions; very difficult to do ultrasound-guided thoracentesis given her body habitus; however she was started on hemodialysis -Patient is on IV Bactrim (day 4 )as well as Zosyn--which may have been contributing to excess volume-along with A-fib RVR -Off pressors -Bronchoscopy 10/07/2022-revealed copious amount of secretions blocking right lower lobe subsegments-they were suctioned out and BAL sent for various studies - Sugars are moderately controlled-On insulin scale coverage -workup so far negative for respiratory viral panel, COVID-19,; Given her immunosuppression for rheumatoid arthritis-extensive workup was sent -Amiodarone IV switched to oral amiodarone -Patient is also receiving TPN - So for beta D glucan weekly positive-PCP PCR, histoplasma antigen, coccidioidomycosis-are pending; was on Bactrim-but due to worsening renal functions will switch to atovaquone and currently on steroids as well. - She is in airborne isolation-sputum for MTB-is pending; TB QuantiFERON is negative -Hemodialysis as per renal team -Maintaining airway and saturations on BiPAP-however she is extremely drowsy-may need some more time to wear off sedation ICU CHECKLIST: Problem list updated Verbal orders reviewed and signed Code Status: Full code Disposition: ICU Critically ill: Yes MD discussed with: Hospitalist, RN, RT Prognosis: Critical Family: updated about medical condition, plan of management, prognosis at bedside Analgesia: Fentanyl Glycemic Control: Scale coverage Nutrition: Trickle feeding Restraint Renewal (within 24 hrs): Yes Ulcer Prophylaxis: PPI Chemical Thromboprophylaxis: Prophylaxis: Heparin Mechanical Thromboprophylaxis: SCD Need for Central line: Yes for pressors Need for Manzanares catheter: Yes for urine output monitoring Attestations 2 Medical Necessity Statement*: Critically ill in ICU. Extubated yesterday-need 24 to 48 hours to monitor for mentation Time Spent in Patient Care: Greater than 35 minutes (>than 50% of time spent in counselling and/or direct pt care on unit) . Critical Care Time: The high probability of a clinically significant, sudden or life threatening deterioration of the patient's [renal, respiratory, cardiovascular] system(s) required my full and direct attention, intervention and personal management. The critical care time is as shown. This time is in addition to time spent performing any reported procedures but includes the following: [x] Data and vital sign review and interpretation [x] Patient assessment, examination and intervention [x] Documentation [x] Medication orders and management Critical Care Time (min): 54 Coding Level of Care Code Acute Code for Chg Fwd Diagnoses Acute respiratory failure with hypoxia and hypercarbia J96.01; J96.02 Ventilator dependence Z99.11 Acute on chronic diastolic congestive heart failure I50.33 Heart failure type: diastolic Heart failure chronicity: acute on chronic Seronegative rheumatoid arthritis of both hands M06.041; M06.042 High risk medication use Z79.899 Morbid obesity E66.01 Chronic atrial fibrillation I48.20 CYNTHIA (acute kidney injury) N17.9 Time Spent (min) 51
[2023-08-08 18:12] LABS: Glucose Point of Care 150 mg/dL (70-110)
[2023-08-08] MEDS: amiodarone 200 mg Tablet 400 MG NG-TUBE (18:14)
[2023-08-08] MEDS: NON-FORMULARY MEDICATION 750 EACH FEED TUBE (18:15)
--- NOTE | 2023-08-08 19:00 | PC.NURSE ---
Addendum entered by Mahesh See RN 08/08/23 19:21: Shift SUmmary: Uneventful shift. Patient has rested in bed throughout the day. On Bipap. Mental status has shown slight improvement. Still very lethargic, will occaisonally follow commands, was able to briefly express some needs. Central line removed from right IJ after PICC was placed. NG tube placed. Total urine output has been 30mL. Dr ledezma is aware of this, will round tommorow and likely dialysis. Original Note: Shift SUmmary: Uneventful shift. Patient has rested in bed throughout the day. On Bipap. Mental status has shown slight improvement. Still very lethargic, will occaisonally follow commands, was able to briefly express some needs. Central line removed from right IJ after PICC was placed. NG tube placed.
[2023-08-08] MEDS: atorvastatin 40 mg Tablet 80 MG NG-TUBE (20:21)
[2023-08-08 23:11] LABS: Glucose Point of Care 139 mg/dL (70-110)
[2023-08-09] VITALS (45 sets, daily range): BP systolic 118–154; BP diastolic 59–102; PULSE 90–119; RESP 12–23; TEMP 36.5–36.9; O2SAT 89–100
[2023-08-09 00:49] LABS: Fibrinogen Degradation Product <5 mcg/mL (LESS THAN 5)
[2023-08-09] MEDS: chlorhexidine gluconate 4% Btl 118 mL 1 APPLIC TOPICAL (02:25)
[2023-08-09] MEDS: piperacillin-tazobactam 3.375 GM in sodium chloride 0.9% (plus) 50 ML IV (04:57)
[2023-08-09] MEDS: duloxetine 60 mg Capsule PO (05:06)
[2023-08-09] MEDS: pyridostigmine 60 mg Tablet PO (05:06)
[2023-08-09] MEDS: levothyroxine 150 mcg Tablet NG-TUBE (05:06)
[2023-08-09 05:08] LABS: Basophils % 0.2 %; Eosinophils % 0.2 %; Hematocrit 24.5 % (36-47); Lymphocytes # 0.2 10^3/uL (0.8-4.8); Lymphocytes % 3.4 %; Mean Corpuscular HGB Conc 30.6 g/dL (30-55); Mean Corpuscular Hemoglobin 26.8 pg (27-33); Mean Corpuscular Volume 87.5 fl (85-98); Mean Platelet Volume 9.8 fL (7.4-10.4); Monocytes # 0.2 10^3/uL (0.2-0.9); Monocytes % 3.4 %; Neutrophils # 5.31 10^3/uL (1.8-7.7); Neutrophils % 91.6 %; Nucleated Red Blood Cells % 0 %; Platelet Count 137 10^3/cmm (157-399); Red Cell Distribution Width 17.4 % (12.1-15.1)
[2023-08-09 05:17] LABS: Glucose Point of Care 186 mg/dL (70-110)
[2023-08-09] MEDS: insulin lispro 100 unit/1 mL SUBCUT ×4 (05:23→23:16)
[2023-08-09 05:46] LABS: Alanine Aminotransferase 29 U/L (0-33); Albumin Level 2.9 g/dL (3.5-5.2); Alkaline Phosphatase 83 U/L (35-105); Aspartate Amino Transferase 66 U/L (0-32); Blood Urea Nitrogen 38 mg/dL (8-23); Calcium 8.6 mg/dL (8.5-10.5); Carbon Dioxide 23 mmol/L (22-29); Chloride 89 mmol/L (98-107); Glucose 150 mg/dL (65-115); Osmolality Calculated 280 mOsm/kg (285-295); Sodium 129 mmol/L (136-145); Total Bilirubin 0.2 mg/dL (0.15-1.2); Total Protein 5.9 g/dL (6.6-8.7)
[2023-08-09 05:53] LABS: Anion Gap 20.9 (5-19); Potassium 3.9 mmol/L (3.5-5.1)
[2023-08-09 07:48] LABS: Glucose Point of Care 147 mg/dL (70-110)
[2023-08-09] MEDS: ipratropium-albuterol 3 mL Neb INHALATION ×4 (08:00→21:50)
[2023-08-09] MEDS: nystatin powder 15 gm Btl 1 APPLIC TOPICAL ×2 (08:14→18:19)
[2023-08-09] MEDS: pantoprazole 40 mg SDV IVP ×2 (08:14→18:19)
[2023-08-09] MEDS: amiodarone 200 mg Tablet 400 MG NG-TUBE ×2 (08:14→18:19)
[2023-08-09] MEDS: methylPREDNISolone sod succ 40 mg/mL INJ IVP ×2 (08:14→20:13)
[2023-08-09] MEDS: chlorhexidine gluconate 0.12% Btl 473 mL 15 ML MUCOUS MEM ×2 (08:15→18:19)
[2023-08-09] MEDS: NON-FORMULARY MEDICATION 750 EACH FEED TUBE ×2 (08:15→18:20)
[2023-08-09] MEDS: lidocaine 5% Patch 1 PATCH TOPICAL (08:15)
[2023-08-09] MEDS: heparin, porcine 1,000 unit/mL INJ 10 mL 1000 UNIT IV (10:09)
--- NOTE | 2023-08-09 10:11 | P.PN_ITS ---
Subjective 2 Subjective: on bipap Medications: Reviewed: Yes Vitals/I&O/Wt Last Vital Signs Temp 98.1 F 08/09/23 08:05 Pulse 106 H 08/09/23 09:30 Resp 19 H 08/09/23 08:00 BP 141/59 08/09/23 05:30 Pulse Ox 97 08/09/23 09:30 O2 Del Method BiPAP 08/09/23 08:00 O2 Flow Rate 5 08/09/23 01:30 FiO2 30 08/09/23 09:30 08/08/23 08/09/23 08/09/23 22:59 06:59 14:59 Intake Total 210 / 260 60 / 320 Output Total 30 30 75 / 105 Balance 180 / 230 -15 / 215 Weight last 48 hrs Weight 107.864 kg Weight 107.501 kg Weight 108.5 kg Physical Exam 2 Narrative: on bipap Urinary Catheter Management: Manzanares Latex: Cath Placed During This Visit: yes, but has since been removed by the nurse Reason for Continuing Indwelling Catheter: Accurate Measurement of Urinary Output in Critically Ill Patients Urinary Catheter Date of Insertion: 07/27/23 Urinary Catheter Time of Insertion: 19:45 Date Urinary Catheter Removed: 08/03/23 Time Urinary Catheter Discontinued: 14:30 Manzanares: Cath Placed During This Visit: no Reason for Continuing Indwelling Catheter: Accurate Measurement of Urinary Output in Critically Ill Patients Data 08/09/23 04:10 08/09/23 04:10 Micro: Microbiology 08/03/23 23:51 Blood Culture - Final Blood NO GROWTH AFTER 5 DAYS 08/03/23 23:45 Blood Culture - Final Blood NO GROWTH AFTER 5 DAYS 08/06/23 07:50 Fungal Smear - Preliminary Sputum - Endotracheal Tube Aspirate A&P Assessment and plan (1) CYNTHIA (acute kidney injury): Plan 1. Acute on chronic kidney disease stage III: Baseline creatinine is in the 1 range, now has severe CYNTHIA with a creatinine of 3.9 and volume overload, patient became anuric in the last 24 hours. No significant response to diuretics. s/p temporary HD catheter placement and initiated hemodialysis for volume management.s/p HD yesterday , assess daily for HD needs - HD today 2. Acute on chronic respiratory failure: Multifactorial, extubated , off pressors 3. Sepsis, secondary to pneumonia, on broad-spectrum antibiotics 4. A-fib 5. Morbid obesity Patient evaluated using audiovisual cart. Time spent 20 minutes. Attestations 2 Medical Necessity Statement*: per medicine team Coding Level of Care Code Acute Code for Chg Fwd Diagnoses CYNTHIA (acute kidney injury) N17.9
[2023-08-09 11:04] LABS: Glucose Point of Care 150 mg/dL (70-110)
--- NOTE | 2023-08-09 12:11 | P.PN_ITS ---
Subjective 2 Subjective: Getting dialysis this morning. A little more alert compared to yesterday. Able to state few words like amarilis, states her name. Very deconditioned. Developing pressure injury over the sacrum. Hb 7.5, tachycardic Medications: Reviewed: Yes Vitals/I&O/Wt Last Vital Signs Temp 97.9 F 08/09/23 10:18 Pulse 119 H 08/09/23 11:32 Resp 20 H 08/09/23 11:10 BP 135/102 08/09/23 10:18 Pulse Ox 96 08/09/23 11:32 O2 Del Method BiPAP 08/09/23 11:10 O2 Flow Rate 5 08/09/23 01:30 FiO2 30 08/09/23 11:32 08/08/23 08/09/23 08/09/23 22:59 06:59 14:59 Intake Total 210 / 260 60 / 320 Output Total 30 30 75 / 105 0 / 0 Balance 180 / 230 -15 / 215 0 / 0 Weight last 48 hrs Weight 107.864 kg Weight 107.501 kg Weight 108.5 kg Physical Exam 2 Narrative: General: Lethargic, drowsy, extremely deconditioned HEENT: PERRLA, pupils bilaterally equal and reactive, pallors not present Chest: Reduced breath sounds right lower lobe CVS: S1-S2 regular, no murmurs, no tachycardia, no gallops, no rubs Abdomen: Soft, nontender, no organomegaly, bowel sounds present Urinary Catheter Management: Manzanares Latex: Cath Placed During This Visit: yes, but has since been removed by the nurse Reason for Continuing Indwelling Catheter: Accurate Measurement of Urinary Output in Critically Ill Patients Urinary Catheter Date of Insertion: 07/27/23 Urinary Catheter Time of Insertion: 19:45 Date Urinary Catheter Removed: 08/03/23 Time Urinary Catheter Discontinued: 14:30 Manzanares: Cath Placed During This Visit: no Reason for Continuing Indwelling Catheter: Accurate Measurement of Urinary Output in Critically Ill Patients Data 08/09/23 04:10 08/09/23 04:10 Micro: Microbiology 08/03/23 23:51 Blood Culture - Final Blood NO GROWTH AFTER 5 DAYS 08/03/23 23:45 Blood Culture - Final Blood NO GROWTH AFTER 5 DAYS 08/06/23 07:50 Fungal Smear - Preliminary Sputum - Endotracheal Tube Aspirate A&P Assessment and plan (1) COPD (chronic obstructive pulmonary disease): Qualifiers: COPD type: unspecified COPD Qualified Code(s): J44.9 - Chronic obstructive pulmonary disease, unspecified (2) Acute and chronic respiratory failure with hypoxia: (3) PNA (pneumonia): (4) Pleural effusion: (5) CHF (congestive heart failure): acute on chronic with preserved EF Qualifiers: Heart failure type: diastolic Heart failure chronicity: acute on chronic Qualified Code(s): I50.33 - Acute on chronic diastolic (congestive) heart failure (6) Ventilator dependence: (7) Respiratory failure: (8) Acute respiratory failure with hypoxia and hypercarbia: (9) Respiratory acidosis: (10) Multiorgan failure: Plan 72-year-old lady with COPD, CHF, immunocompromised on Humira ,currently admitted to the hospital with acute on chronic hypoxic respiratory failure with multiple recent hospital admissions for the same reason.Recent chest x-rays and CAT scans have shows bilateral infiltrates which may represent persisting pneumonic infiltrates. Hospital course has been notable for ventilator dependent respiratory failure, with acute worsening on August 02, 2023. # Acute on chronic hypoxic respiratory failure, currently ventilator dependent. Likely multifactorial relating to persistent pneumonic infiltrates versus pulmonary edema versus acute aspiration event on August 02. Recent chest x-rays and CAT scans have shows bilateral infiltrates which have been persistent over the past month. Status post bronchoscopy on 08/06/2023. Pending respiratory cultures from [facility]. Pending PJP PCR, AFB culture and MTB PCR from August 06, 2023 evaluation ongoing for opportunistic pneumonia Thus far evaluation has been significant for elevated beta glucan at 123. While this remains nonspecific, given that patient is immunocompromised, has been on multiple steroids over the past month for COPD exacerbations, clinical suspicion for pneumocystis pneumonia. Patient started empiric Bactrim treatment at PJP dosing on July 31, 2023.Currently renally dosed at Bactrim 2 tabs p.o. daily. This has been complicated by development of acute renal failure, creatinine trending up to 2.3 and persisting hyponatremia with following sodium down to 126 today. Will discontinue Bactrim today given worsening renal numbers, following urine output. Change presumptive PJP coverage while waiting for the PCR results to atovaquone 750 mg p.o. twice daily. Added methylprednisolone 40 mg IV every 8 hours, again for presumptive PJP treatment while awaiting PCR results. Titrate down to every 12 hours. She is on Humira, evaluation ongoing to rule out TB. AFB smear negative x 1 from July 27, 2023, positive specimens unable to be sent out. Now collected from [facility] performed on August 06, 2023. MTB PCR pending from [facility]. Previously submitted from sputum was declined as it was not a satisfactory specimen. Negative QuantiFERON, also previously negative from 2019. Reports history of PPD positivity which were deemed to be false positives Negative serum Aspergillus galactomannan Negative histoplasma and Coccidioides serology. Patient denies any history of recent travel. She has noted to have bilateral pleural effusions additionally, thoracentesis was attempted on her most recent admission for diagnostic purposes, however there was insufficient fluid to proceed. b-d glucan weakly positive. negative respiratory viral panel. Echocardiogram from July 01, 2023 showed normal left ventricular size systolic function and wall thickness without regional wall motion abnormalities. LVEF of 65%. Aortic valve sclerosis without stenosis. s/p Zosyn 07/25-08/03; then 08/05-current s/p vancomycin 07/24-07/30; then 08/05-08/07 #Gram-positive bacteremia, on 08/02 identified as Staph hominis 1/2 cutures likely contaminant blooc cx 08/03 negative to date Discontinue vancomycin Respiratory and blood cultures negative for MRSA #Acute kidney injury, prerenal possibly ATN. Currently on dialysis Appreciate nephrology recommendations Discontinue Bactrim CBC without any peripheral eosinophils, no rash, lower possibility of dress syndrome #Acute on chronic diasotlic HF Previously on Bumex, now on dialysis unclear at this time if dialysis would be needed long-term or not #Immunocompromised, on adalimumab, methrotrexate outpatient #A-fib with RVR Currently on amiodarone infusion Discontinue infusion. Changed to amiodarone 400 mg via NG tube not on a/c due to history of bleeding #Acute on chronic anemia Hemoglobin 7.1. Trend closely. Labs do not appear to have been drawn this morning for CBC. Unclear why. ? Protonix IV twice daily to continue ? Full Code DVT PPX: SCDs. GI ppx: protonix 40 IV BID Prognosis is poor. Nursing staff and updated bedside in a lot of detail. All questions were answered to his satisfaction. Plan for today 08/08: Extubated yesterday. ABG performed this morning 7.32/52.2/76.3. Settings adjusted. Not significantly hypercapnic to explain her visit persisting lethargy at this time. Check COVID antigen. Place NGT to administer oral meds. Start TPN. Place PICC line as anticipated prolonged hospitalization with need for continuous IV access. Respiratory cultures with yeast. Patient adequately covered with fluconazole. Suspect this is related to thrush. Still pending PCP PCR and MTB PCR. Will follow-up pending studies. Discontinue piperacillin/tazobactam over the next 24 hours if cultures remain unrevealing for other organisms. Continue IV steroids. Plan for today: 08/09/2023. Slightly more awake today compared to yesterday. Developing tachycardia with heart rate up to 124. Resume home dose of metoprolol. Transfuse 1 unit packed red blood cell. Target hemoglobin of 8 patient with A-fib and persistent tachycardia. Developing stage I pressure injury. Started zinc oxide. Frequent repositioning. Discontinue piperacillin/tazobactam. Wean off BiPAP to nasal cannula today. Depending on how well patient is able to sustain her breathing further disposition plans and decisions regarding trach/PEG. TPN was unable to be started yesterday. Orders placed again today. PT OT once more awake Attestations 2 Medical Necessity Statement*: Continued admission for precarious respiratory status, close monitoring to be continued. Wean off BiPAP today as tolerated. Resume beta-blockers and monitor heart rate closely. Coding Level of Care Code Acute Code for Chg Fwd High MDM includes number and complexity of problems actively addressed during encounter, amount and/or complexity of data reviewed/ordered and described risk of complication, morbidity or mortality of management as documented Diagnoses Chronic obstructive pulmonary disease, unspecified COPD type J44.9 COPD type: unspecified COPD Acute and chronic respiratory failure with hypoxia J96.21 PNA (pneumonia) J18.9 Pleural effusion J90 Acute on chronic diastolic congestive heart failure I50.33 Heart failure type: diastolic Heart failure chronicity: acute on chronic Ventilator dependence Z99.11 Respiratory failure J96.90 Acute respiratory failure with hypoxia and hypercarbia J96.01; J96.02 Respiratory acidosis E87.29 Multiorgan failure
--- NOTE | 2023-08-09 13:19 | P.PN_ITS ---
Subjective 2 Subjective: Appears more awake and alert today- at bedside reported that she spoke to him as well Gradual clinical improvement She needs aggressive physical therapy and pulmonary rehabilitation given her severe deconditioning Recommended to discuss with nephrology regarding duration of dialysis and permacath placement Medications: Reviewed: Yes Vitals/I&O/Wt Last Vital Signs Temp 97.9 F 08/09/23 10:18 Pulse 119 H 08/09/23 11:32 Resp 20 H 08/09/23 11:10 BP 135/102 08/09/23 10:18 Pulse Ox 96 08/09/23 11:32 O2 Del Method BiPAP 08/09/23 11:10 O2 Flow Rate 5 08/09/23 01:30 FiO2 30 08/09/23 11:32 08/08/23 08/09/23 08/09/23 22:59 06:59 14:59 Intake Total 210 / 260 60 / 320 Output Total 30 75 / 105 0 / 0 Balance 180 / 230 -15 / 215 0 / 0 Weight last 48 hrs Weight 237 lb 12.8 oz Weight 237 lb Weight 239 lb 3.225 oz Physical Exam 2 Narrative: General: Appears extremely drowsy, weak not in acute respiratory distress HEENT: conj clear, EOMI, PERRL, mmm, Neck: supple, no meningismus Heme: no cervical LAP Respiratory: Inspection: No visible deformity of the chest wall Palpation: Trachea is mildly deviated to the right, bilateral symmetric expansion Percussion: Bilateral tympanic percussion note both anterior and posteriorly Auscultation: Diffuse crackles Cardiovascular: rrr, nl s1s2, no mrg Abdomen: soft, nt, nd, no r/g, bs+ Extremities: pulses +, 1+ pitting pedal edema, no c/c : no CVA tenderness Skin: intact, no rash MSK: no back or neck pain Neurologic: grossly intact Urinary Catheter Management: Manzanares Latex: Cath Placed During This Visit: yes, but has since been removed by the nurse Reason for Continuing Indwelling Catheter: Accurate Measurement of Urinary Output in Critically Ill Patients Urinary Catheter Date of Insertion: 07/27/23 Urinary Catheter Time of Insertion: 19:45 Date Urinary Catheter Removed: 08/03/23 Time Urinary Catheter Discontinued: 14:30 Manzanares: Cath Placed During This Visit: no Reason for Continuing Indwelling Catheter: Accurate Measurement of Urinary Output in Critically Ill Patients Data 08/10/23 04:01 08/10/23 04:01 Other Labs: Radiology Impressions Chest CTA 08/02/23 17:42 IMPRESSION: 1. Negative for pulmonary embolus. 2. Endotracheal tube and enteric tube seen in place. 3. Right-sided central venous catheter. 4. Large bilateral pleural effusions. 5. Several enlarged mediastinal lymph nodes measuring up to 17 mm, nonspecific. 6. Cardiomegaly. 7. Coronary artery atherosclerotic calcifications. 8. Cirrhotic liver. 9. Hepatic steatosis. 10. Cholecystectomy. 11. Bilateral right greater than left airspace infiltrates. 12. Left kidney 16 mm exophytic probable hyperdense cyst, nonemergent ultrasound could further characterize this. 13. Main pulmonary artery is somewhat prominent which can be a finding of pulmonary artery hypertension. COMMENTS: Consistent with the [employer]'s Incidental Findings Committee white paper (J Am Cesar Radiol 2018): Any incidental renal lesion less than 1 cm or classified as too small to characterize, or any incidental cystic renal lesion characterized as simple-appearing, is likely benign. No follow-up imaging is recommended for these lesions per consensus recommendations based on imaging criteria. Abdomen X-Ray 08/04/23 14:43 IMPRESSION: Air-filled structure positioned in the midline lower abdomen may represent a low-lying stomach. Dilated bowel loop/obstruction cannot be excluded. Laboratory Results WBC 6.07 10^3/uL (3.29-11.43) 08/10/23 04:01 RBC 3.26 10^6/uL (3.85-5.65) L 08/10/23 04:01 Hgb 8.80 g/dL (11.27-16.99) L 08/10/23 04:01 Hct 28.2 % (36-47) L 08/10/23 04:01 MCV 86.5 fl (85-98) 08/10/23 04:01 MCH 27.0 pg (27-33) 08/10/23 04:01 MCHC 31.2 g/dL (30-55) 08/10/23 04:01 RDW 17.0 % (12.1-15.1) H 08/10/23 04:01 Plt Count 138 10^3/cmm (157-399) L 08/10/23 04:01 MPV 9.6 fL (7.4-10.4) 08/10/23 04:01 Neut % (Auto) 92.0 % 08/10/23 04:01 Lymph % (Auto) 2.8 % 08/10/23 04:01 [place] % (Auto) 4.3 % 08/10/23 04:01 Eos % (Auto) 0.2 % 08/10/23 04:01 Baso % (Auto) 0.0 % 08/10/23 04:01 Neut # (Auto) 5.59 10^3/uL (1.8-7.7) 08/10/23 04:01 Lymph # (Auto) 0.2 10^3/uL (0.8-4.8) L 08/10/23 04:01 [place] # (Auto) 0.3 10^3/uL (0.2-0.9) 08/10/23 04:01 Eos # (Auto) 0.0 10^3/uL (0.0-0.8) 08/10/23 04:01 Baso # (Auto) 0.0 10^3/uL (0.0-0.1) 08/10/23 04:01 Nucleated RBC % (auto) 0.8 % 08/10/23 04:01 Nucleated RBCs # 0.1 /100WBC 08/10/23 04:01 PT 14.70 SECONDS (12.1-14.9) 08/04/23 04:55 INR 1.11 (0.8-1.2) 08/04/23 04:55 APTT 25.9 SECONDS (23.9-36.7) 08/02/23 17:51 Fibrinogen 556 mg/dL (174-498) H 08/02/23 17:51 Fibrin Degrad Products <5 mcg/mL (LESS THAN 5) 08/02/23 17:58 D-Dimer 0.74 ug/mLFEU (0-0.59) H 08/02/23 17:51 Specimen Type Arterial 08/08/23 16:15 Sample Site Brachial, left 08/08/23 16:15 ABG pH 7.35 (7.35-7.45) 08/08/23 16:15 ABG pCO2 46.2 mmHg (35-45) H 08/08/23 16:15 ABG pO2 68.6 mmHg (80.0-100.0) L 08/08/23 16:15 ABG PO2/FiO2 Ratio 0 08/08/23 16:15 ABG HCO3 25.3 mmol/L (22-26) 08/08/23 16:15 ABG O2 Saturation 94.2 08/08/23 08:35 ABG Base Excess -0.5 mmol/L (-2.0-2.0) 08/08/23 16:15 Memo Test Pos 08/08/23 16:15 A-a O2 Gradient 10.2 mmHg (5-10) H 08/08/23 08:35 Hematocrit 22.8 % (37-47) L 08/08/23 16:15 Hgb O2 Saturation 91.2 % (95-100) L 08/08/23 08:35 Carboxyhemoglobin 1.7 %THgb (0.4-20.1) 08/08/23 08:35 Methemoglobin 1.5 % (0.4-1.5) 08/08/23 08:35 Total Hemoglobin 7.7 g/dL (12-16) L 08/08/23 08:35 Sodium 130.0 mmol/L (131-143) L 08/08/23 08:35 Potassium 3.6 mmol/L (3.5-5.0) 08/08/23 08:35 Glucose 122.0 mg/dL (70-115) H 08/08/23 08:35 Ionized Calcium 1.2 mmol/L (1.1-1.4) 08/08/23 08:35 O2 Delivery Device Bipap 08/08/23 16:15 O2 Liters/Min 5.0 % 07/25/23 15:12 FiO2 30.0 % 08/08/23 16:15 Tidal Volume 0.40 08/07/23 04:33 PEEP 8.0 cmH20 08/04/23 14:50 Reconnaissance Man ID Gd 08/08/23 16:15 Sodium 130 mmol/L (136-145) L 08/10/23 04:01 Potassium 3.9 mmol/L (3.5-5.1) 08/10/23 04:01 Chloride 92 mmol/L (98-107) L 08/10/23 04:01 Carbon Dioxide 25 mmol/L (22-29) 08/10/23 04:01 Anion Gap 16.9 (5-19) 08/10/23 04:01 BUN 29 mg/dL (8-23) H 08/10/23 04:01 Creatinine 2.7 mg/dL (0.5-0.9) H 08/10/23 04:01 GFR Calculation Not Reportable 08/10/23 04:01 Glucose 231 mg/dL (65-115) H 08/10/23 04:01 POC Glucose 211 mg/dL (70-110) H 08/10/23 11:35 Calculated Osmolality 283 mOsm/kg (285-295) L 08/10/23 04:01 Lactate 3.6 mmol/L (0.5-2.2) H 08/04/23 15:18 Calcium 8.9 mg/dL (8.5-10.5) 08/10/23 04:01 Phosphorus 5.9 mg/dL (2.5-4.5) H 08/05/23 03:45 Magnesium 2.0 mg/dL (1.7-2.3) 08/10/23 04:01 Iron 50 ug/dL (37-145) 08/04/23 04:45 TIBC 273 mcg/dl 08/04/23 04:45 % Saturation 18.3 % (20-50) L 08/04/23 04:45 Unsat Iron Binding 223 ug/dL (112-347) 08/04/23 04:45 Ferritin 110 ng/mL (15-150) 08/04/23 04:45 Total Bilirubin 0.2 mg/dL (0.15-1.2) 08/10/23 04:01 AST 58 U/L (0-32) H 08/10/23 04:01 ALT 32 U/L (0-33) 08/10/23 04:01 Alkaline Phosphatase 90 U/L (35-105) 08/10/23 04:01 Troponin T Baseline 43 ng/L (0-10) H 08/02/23 17:51 Troponin T 120 Minute 47.08 ng/L (0-10) H 08/02/23 20:05 Delta Troponin T 4.08 ABS# (0-10) 08/02/23 20:05 Troponin T Hi Sens 6Hr 47.70 ng/L (0-10) H 08/02/23 23:47 Troponin T Hi Sens 6Hr Delta 4.70 ng/L (0-12) 08/02/23 23:47 NT-Pro-B Natriuret Pep 4242 pg/mL (0-125) H 08/02/23 17:51 Total Protein 6.1 g/dL (6.6-8.7) L 08/10/23 04:01 Albumin 3.3 g/dL (3.5-5.2) L 08/10/23 04:01 Globulin 2.8 g/dL (1.3-4.6) 08/10/23 04:01 Vitamin B12 799 pg/mL (232-1245) 08/04/23 04:45 25-OH Vitamin D Total 35 ng/mL (30-100) 08/04/23 04:45 Procalcitonin 0.47 ng/mL (0-0.5) 08/04/23 04:45 Urine Color Dark yellow (Yellow) 07/25/23 11:54 Urine Appearance Hazy (CLEAR) A 07/25/23 11:54 Urine pH 5 (5-7) 07/25/23 11:54 Ur Specific [place] 1.020 (1.005-1.030) 07/25/23 11:54 Urine Protein Trace (Negative) 07/25/23 11:54 Urine Glucose (UA) Norm (Normal) 07/25/23 11:54 Urine Ketones Negative (Negative) 07/25/23 11:54 Urine Blood Neg (Negative) 07/25/23 11:54 Urine Nitrate Negative (Negative) 07/25/23 11:54 Urine Bilirubin Neg (Negative) 07/25/23 11:54 Urine Urobilinogen Norm mg/dL (Negative) 07/25/23 11:54 Ur Leukocyte Esterase Negative (Negative) 07/25/23 11:54 Urine RBC 0-4 /hpf (0-2) H 07/25/23 11:54 Urine WBC 15-25 /hpf (0-5) H 07/25/23 11:54 Ur Squamous Epith Cells 10-15 /hpf (0-5) H 07/25/23 11:54 Ur Transition Epith Cell 5-10 /hpf 07/25/23 11:54 Amorphous Sediment Not Reportable 07/25/23 11:54 Urine Bacteria Trace /hpf (NONE) 07/25/23 11:54 Hyaline Casts 5-10 /lpf H 07/25/23 11:54 Urine Mucus Trace /hpf 07/25/23 11:54 Bronch Specimen Source Right lower lobe 08/06/23 07:50 Bronchial Fluid Color Slight pink 08/06/23 07:50 Bronchial Fluid Appearance Hazy (CLEAR) 08/06/23 07:50 Bronch Cells Counted 200 08/06/23 07:50 Bronchial Neutrophils 29.00 % (0.9-2.3) H 08/06/23 07:50 Bronchial Lymphocytes 3.00 % (10.71-12.91) L 08/06/23 07:50 Bronchial Eosinophils 1.00 % (0.13-0.25) H 08/06/23 07:50 Bronchial Macrophages 67.00 % (83.6-86.8) L 08/06/23 07:50 Bronchial Diff Comment Yes 08/06/23 07:50 Vancomycin Trough 12.0 ug/mL (10-15) 07/28/23 14:08 Digoxin 0.6 ng/mL (0.6-1.2) 08/04/23 04:45 C. difficile Tox (PCR) Not detected (NOT DETECTED) 08/09/23 14:35 Coccidioides immitis CF <1:2 07/26/23 08:55 Coronavirus 229E (PCR) Not detected (NOT DETECT) 07/25/23 15:47 Hep Bs Antigen Non-reactive (Nonreactive) 08/05/23 03:45 Hep Bs Antibody < 3.5 (11.5-1000) L 08/05/23 03:45 Histo Mycel H Protein Negative 07/26/23 08:55 Histo Mycel M Protein Negative 07/26/23 08:55 U Histop Galact Ag Qnt <0.2 ng/mL 07/25/23 11:54 Influenza Type A Ag negative (Negative) 07/25/23 15:47 Influenza Type B Ag negative (Negative) 07/25/23 15:47 Myco Comp PCR Spec Srce Cancelled 08/06/23 07:50 Pneumocystis Source Right lower lobe 08/06/23 07:50 Pneumocyst jirovecii PCR Not detected 08/06/23 07:50 Aspergillus Source Whole blood 08/06/23 03:36 Aspergillus Ag (EIA) Not detected 08/06/23 07:50 Aspergillus sp (PCR) Not detected 08/06/23 03:36 A. fumigatus (PCR) Not detected 08/06/23 03:36 A. galactomannan Ag EIA Not detected 07/26/23 08:55 A. galactomannan Ag Idx <0.50 08/06/23 07:50 A. terreus (PCR) Not detected 08/06/23 03:36 SARS-CoV-2 (PCR) Not detected (NOT DETECT) 07/25/23 15:47 SARS-CoV-2 Ag (Rapid) negative (Negative) 08/08/23 14:15 MRSA (PCR) Not detected (NOT DETECTED) 08/04/23 15:18 TB (QFT) Gold In Tube Negative (NEGATIVE) 07/26/23 08:55 TB Test (QFT) Nil 0.04 IU/mL 07/26/23 08:55 TB Test (QFT) Mitogen 8.86 IU/mL 07/26/23 08:55 TB Test Mitogen - Nil 0.00 IU/mL 07/26/23 08:55 TB Test TB -Nil <0.00 IU/mL 07/26/23 08:55 Beta-(1,3)-D-Glucan 123 pg/mL H 07/26/23 08:55 B-(1,3)-D-Glucan Intrp Positive A 07/26/23 08:55 M.tuberculosis Cmplx PCR Cancelled 08/06/23 07:50 Misc Test Reference Cancelled 07/30/23 11:20 Blood Type O Positive 08/09/23 12:31 Rho(D) Type Rh positive 08/09/23 12:31 Antibody Screen Negative 08/09/23 12:31 Crossmatch See Detail 08/09/23 12:31 Micro: Microbiology 08/03/23 23:51 Blood Culture - Final Blood NO GROWTH AFTER 5 DAYS 08/03/23 23:45 Blood Culture - Final Blood NO GROWTH AFTER 5 DAYS 08/06/23 07:50 Fungal Smear - Preliminary Sputum - Endotracheal Tube Aspirate A&P Assessment and plan (1) Acute respiratory failure with hypoxia and hypercarbia: (2) Ventilator dependence: (3) CHF (congestive heart failure): Qualifiers: Heart failure type: diastolic Heart failure chronicity: acute on chronic Qualified Code(s): I50.33 - Acute on chronic diastolic (congestive) heart failure (4) Seronegative rheumatoid arthritis of both hands: (5) High risk medication use: (6) Morbid obesity: (7) Chronic atrial fibrillation: (8) CYNTHIA (acute kidney injury): Plan # Acute hypoxic/hypercapnic respiratory failure in patient with underlying COPD, diastolic heart failure, chronic bilateral pleural effusions, morbid obesity # History of rheumatoid arthritis on Humira and immunosuppressive medications- rule out underlying opportunistic infections # CYNTHIA on CKD-currently on Levophed # Chronic H-itf-volqkkrzj rate controlled-started on amiodarone drip # Hypokalemia and hypomagnesemia-supplement and monitor # Large bilateral pleural effusions #Sputum cultures positive for AFB; urine cultures positive for Amber albicans- patient is currently on fluconazole -Intubated and sedated-currently on fentanyl/propofol-she is on minimal vent settings-ABG acceptable patient baseline CO2 is around 60-made ventilator changes accordingly- -CTA 08/02/2023-ruled out PE; large bilateral pleural effusions; very difficult to do ultrasound-guided thoracentesis given her body habitus; however she was started on hemodialysis -Patient is on IV Bactrim (day 4 )as well as Zosyn--which may have been contributing to excess volume-along with A-fib RVR -Off pressors -Bronchoscopy 10/07/2022-revealed copious amount of secretions blocking right lower lobe subsegments-they were suctioned out and BAL sent for various studies - Sugars are moderately controlled-On insulin scale coverage -workup so far negative for respiratory viral panel, COVID-19,; Given her immunosuppression for rheumatoid arthritis-extensive workup was sent -Amiodarone IV switched to oral amiodarone -Patient is also receiving TPN - So for beta D glucan weekly positive-PCP PCR, histoplasma antigen, coccidioidomycosis-are pending; was on Bactrim-but due to worsening renal functions will switch to atovaquone and currently on steroids as well. - She is in airborne isolation-sputum for MTB-is pending; TB QuantiFERON is negative -Hemodialysis as per renal team -Maintaining airway and saturations on BiPAP-improvement in her mentation ICU CHECKLIST: Problem list updated Verbal orders reviewed and signed Code Status: Full code Disposition: ICU Critically ill: Yes MD discussed with: Hospitalist, RN, RT Prognosis: Critical Family: updated about medical condition, plan of management, prognosis at bedside Analgesia: Fentanyl Glycemic Control: Scale coverage Nutrition: Trickle feeding Restraint Renewal (within 24 hrs): Yes Ulcer Prophylaxis: PPI Chemical Thromboprophylaxis: Prophylaxis: Heparin Mechanical Thromboprophylaxis: SCD Need for Central line: Yes for pressors Need for Manzanares catheter: Yes for urine output monitoring Attestations 2 Medical Necessity Statement*: Gradually improving-May need permacath placement and then transferred to floor once she is more alert and awake Time Spent in Patient Care: Greater than 35 minutes (>than 50% of time spent in counselling and/or direct pt care on unit) . Critical Care Time: The high probability of a clinically significant, sudden or life threatening deterioration of the patient's [renal, respiratory, cardiovascular] system(s) required my full and direct attention, intervention and personal management. The critical care time is as shown. This time is in addition to time spent performing any reported procedures but includes the following: [x] Data and vital sign review and interpretation [x] Patient assessment, examination and intervention [x] Documentation [x] Medication orders and management Critical Care Time (min): 49 Coding Level of Care Code Acute Code for Chg Fwd Diagnoses Acute respiratory failure with hypoxia and hypercarbia J96.01; J96.02 Ventilator dependence Z99.11 Acute on chronic diastolic congestive heart failure I50.33 Heart failure type: diastolic Heart failure chronicity: acute on chronic Seronegative rheumatoid arthritis of both hands M06.041; M06.042 High risk medication use Z79.899 Morbid obesity E66.01 Chronic atrial fibrillation I48.20 CYNTHIA (acute kidney injury) N17.9 Time Spent (min) 49
--- NOTE | 2023-08-09 13:28 | PC.HD ---
Per Rx #[id number]: The initial loading dose of 1000 units Heparin is able to be correctly documented, witnessed by TAYO Aragon. There is no ability to document the subsequent prescribed maintenance doses of 500 units heparin, to be administered via HD circuit q. hour during dialysis (See sampler ovens's instructions for Rx [id number]). Patient received the following: Heparin 500 units via HD circuit @ 1100 Heparin 500 units via HD circuit @ 1200 Heparin 500 units via HD circuit @ 1300
[2023-08-09] MEDS: heparin, porcine 1,000 unit/mL INJ 10 mL 10000 UNIT INTRACATH (13:57)
[2023-08-09] MEDS: AA-Dex 5%-20% w/Lytes 1,000 ML with multivitamin inj 10 ML 23 ML IV (14:03)
--- NOTE | 2023-08-09 14:07 | PC.HD ---
Per Rx [id number], MAR only allows the full 10,000 units of heparin to be documented. However, written instructions by cannery tender engineer indicate to only use enough heparin to fill catheter. This RN administered 2000 units (2 mL) to each limb of patient's temporary femoral HD catheter. Primary RN aware of discrepancy.
--- NOTE | 2023-08-09 14:47 | PC.OT ---
HOLD OT THIS P.M. DUE TO DIALYSIS
[2023-08-09 16:45] LABS: Glucose Point of Care 154 mg/dL (70-110)
[2023-08-09] MEDS: fluconazole premix 200 MG/100 ML PREMIX 100 MG IV (18:10)
[2023-08-09 19:04] LABS: Aspergillus AG,EIA NOT DETECTED; Aspergillus AG,EIA, Index <0.50
--- NOTE | 2023-08-09 19:41 | PC.NURSE ---
Shift SUmmary: Uneventful shift. Received a dialysis treatment and had 3 Liters removed, patient tolerated well. Has become more alert, most noticeably after dialysis. Currently oriented to at least person and place, possibly situation but poor speech makes it difficult to be sure. Was alert enough to participate with physical therapy and sit on side of bed. Patient has a sacral pressure injury, Due to allergy to adhesive nurse has not been applying a dressing, but a rectal tube has been placed to keep her frequent liquid bowel from excoriating the area, zinc oxide barrier cream has been frequently applied, and frequent turns and linens changes have been performed.
[2023-08-09] MEDS: atorvastatin 40 mg Tablet 80 MG NG-TUBE (20:13)
[2023-08-10] VITALS (57 sets, daily range): BP systolic 103–189; BP diastolic 47–122; PULSE 68–116; RESP 11–31; TEMP 36.6–37; O2SAT 87–100
[2023-08-10] MEDS: chlorhexidine gluconate 4% Btl 118 mL 1 APPLIC TOPICAL (00:15)
[2023-08-10 04:18] LABS: Eosinophils % 0.2 %; Hematocrit 28.2 % (36-47); Lymphocytes # 0.2 10^3/uL (0.8-4.8); Lymphocytes % 2.8 %; Mean Corpuscular HGB Conc 31.2 g/dL (30-55); Mean Corpuscular Volume 86.5 fl (85-98); Mean Platelet Volume 9.6 fL (7.4-10.4); Monocytes # 0.3 10^3/uL (0.2-0.9); Monocytes % 4.3 %; Neutrophils # 5.59 10^3/uL (1.8-7.7); Nucleated Red Blood Cells # 0.1 /100WBC; Nucleated Red Blood Cells % 0.8 %; Platelet Count 138 10^3/cmm (157-399); Red Blood Count 3.26 10^6/uL (3.85-5.65); White Blood Count 6.07 10^3/uL (3.29-11.43)
[2023-08-10 04:44] LABS: Alanine Aminotransferase 32 U/L (0-33); Albumin Level 3.3 g/dL (3.5-5.2); Alkaline Phosphatase 90 U/L (35-105); Blood Urea Nitrogen 29 mg/dL (8-23); Calcium 8.9 mg/dL (8.5-10.5); Carbon Dioxide 25 mmol/L (22-29); Chloride 92 mmol/L (98-107); Globulin 2.8 g/dL (1.3-4.6); Glucose 231 mg/dL (65-115); Osmolality Calculated 283 mOsm/kg (285-295); Sodium 130 mmol/L (136-145); Total Bilirubin 0.2 mg/dL (0.15-1.2); Total Protein 6.1 g/dL (6.6-8.7)
[2023-08-10 04:46] LABS: Anion Gap 16.9 (5-19); Aspartate Amino Transferase 58 U/L (0-32); Potassium 3.9 mmol/L (3.5-5.1)
[2023-08-10] MEDS: pyridostigmine 60 mg Tablet PO (05:38)
[2023-08-10] MEDS: duloxetine 60 mg Capsule PO (05:38)
[2023-08-10] MEDS: levothyroxine 150 mcg Tablet NG-TUBE (05:38)
[2023-08-10] MEDS: insulin lispro 100 unit/1 mL SUBCUT ×4 (05:47→23:40)
--- NOTE | 2023-08-10 07:02 | P.HP_ITS ---
Same Day Surgery H&P Indication for Procedure/HPI DATE OF PROCEDURE: August 10, 2023 CHIEF COMPLAINT/INDICATIONFOR SURGICAL PROCEDURE: alter mental status ac nils on chronic kidney injury PREOP DIAGNOSIS: Need for dialysis due to acute on chronic kidney injury. PLANNED PROCEDURE: Operation Date: 08/10/23 13:30 Proposed Procedures p Dialysis Catheter Insertion(Not Applicable) - Tex Gomez MD 72 y/o F admitted with alter mental status, kidney injury and fluid overload. I have been asked to proceed with dialysis catheter placement. consent obtained from family members after discussion of risk and benefits including the risk of pneumothorax, bleeding, perforation of major vessels, catheter infection and . Medications/Allergies* Home Medications Medication Instructions Recorded Confirmed Type acetaminophen 650 mg 650 mg PO Q4H PRN Pain 10/12/19 07/25/23 History tablet,extended release (Arthritis Pain Reliever) cholecalciferol (vitamin D3) 25 1,000 unit PO QAM 10/12/19 07/25/23 History mcg (1,000 unit) tablet (Vitamin D3) chlorpheniramine maleate 4 mg See Rx Instructions .Route .COMPLEX 03/16/21 07/25/23 History tablet (ChlorTabs) cyanocobalamin (vitamin B-12) 500 500 mcg PO QAM 03/16/21 07/25/23 History mcg tablet (Vitamin B-12) diphenhydramine HCl 25 mg capsule See Rx Instructions .Route .COMPLEX 03/16/21 07/25/23 History (Benadryl) docusate sodium 250 mg capsule 250 mg PO QAM 03/16/21 07/25/23 History (Stool Softener) ferrous gluconate 324 mg (37.5 mg 324 mg PO DAILY@12 05/06/21 07/25/23 History iron) tablet calcium carbonate 600 mg calcium 600 mg PO DAILY@12 06/27/21 07/25/23 History (1,500 mg) tablet (Calcium) levothyroxine 150 mcg tablet 150 mcg PO QAM 06/27/21 07/25/23 History (Euthyrox) pantoprazole 40 mg tablet,delayed 40 mg PO BID 09/13/21 07/25/23 History release pyridostigmine bromide 60 mg tablet 60 mg PO QAM 04/17/23 07/25/23 History tramadol 50 mg tablet 50 mg PO TID 04/17/23 07/25/23 History glucose 4 gram chewable tablet 4 g PO PRN PRN Hypoglycemia 06/17/23 07/25/23 History metoprolol succinate 100 mg 100 mg PO QAM 06/17/23 07/25/23 History tablet,extended release 24 hr atorvastatin 80 mg tablet 80 mg PO BEDTIME 07/25/23 07/25/23 History digoxin 125 mcg (0.125 mg) tablet See Rx Instructions .Route .COMPLEX 07/25/23 07/25/23 History duloxetine 60 mg capsule,delayed 60 mg PO QAM 07/25/23 07/25/23 History release folic acid 1 mg tablet 1 mg PO QAM 07/25/23 07/25/23 History furosemide 20 mg tablet 20 mg PO QAM 07/25/23 07/25/23 History hydrocodone 7.5 mg-acetaminophen 1 tab PO TID 07/25/23 07/25/23 History 325 mg tablet insulin lispro 100 unit/mL See Rx Instructions .Route .COMPLEX 07/25/23 07/25/23 History subcutaneous pen levofloxacin 750 mg tablet 750 mg PO DAILY@17 07/25/23 07/25/23 History omega-3 fatty acids 1,000 mg 2,000 mg PO BEDTIME 07/25/23 07/25/23 History capsule potassium chloride 20 mEq 20 meq PO QAM 07/25/23 07/25/23 History tablet,extended release pyridoxine (vitamin B6) 500 mg 500 mg PO QAM 07/25/23 07/25/23 History tablet riboflavin (vitamin B2) 100 mg 100 mg PO QAM 07/25/23 07/25/23 History tablet (Vitamin B-2) zinc acetate 50 mg (zinc) capsule 50 mg PO DAILY@12 07/25/23 07/25/23 History Allergies/Adverse Reactions Allergy/AdvReac Type Severity Reaction Status Date / Time adhesive tape Allergy rash Verified 06/30/23 17:49 cinnamon Allergy sinus Verified 06/30/23 17:49 codeine Allergy unknown Verified 06/30/23 17:49 cedar Allergy sinus Uncoded 06/30/23 17:49 pine Allergy sinus Uncoded 06/30/23 17:49 pork food Allergy ADR-Nausea Uncoded 06/30/23 17:49 Current Medications: Generic Name Dose Route Start Last Admin Trade Name Freq PRN Reason Stop Dose Admin Acetaminophen 650 mg 07/25/23 18:56 07/28/23 12:19 Acetaminophen 325 Mg Tablet PO 650 mg Q6H PRN Administration Mild/Mod Pain Or Temp >/= 101 Albuterol/Ipratropium 3 ml 07/25/23 20:00 08/09/23 21:50 Ipratropium-Albuterol 3 Ml Neb INHALATION 3 ml QID.RESPIRATORY JOCE Administration Amiodarone HCl 400 mg 08/08/23 10:11 08/09/23 18:19 Amiodarone 200 Mg Tablet NG-TUBE 400 mg BID JOCE Administration Atorvastatin Calcium 80 mg 08/08/23 21:00 08/09/23 20:13 Atorvastatin 40 Mg Tablet NG-TUBE 80 mg BEDTIME JOCE Administration Bumetanide 1 mg 08/03/23 15:00 08/04/23 09:28 Bumetanide 0.25 Mg/Ml Sdv 4 Ml IVP 1 mg TID JOCE Administration Chlorhexidine Gluconate 15 ml 08/02/23 18:00 08/09/23 18:19 Chlorhexidine Gluconate 0.12% Btl 473 Ml MUCOUS MEM 15 ml BID JOCE Administration Chlorhexidine Gluconate 1 applic 08/05/23 22:00 08/10/23 00:15 Chlorhexidine Gluconate 4% Btl 118 Ml TOPICAL 1 applic Q24H JOCE Administration Duloxetine HCl 60 mg 07/26/23 06:00 08/10/23 05:38 Duloxetine 60 Mg Capsule PO 60 mg QAM JOCE Administration Heparin Sodium (Porcine) 10,000 unit 08/05/23 13:25 08/07/23 15:42 Heparin, Porcine 1,000 Unit/Ml Inj 10 Ml INTRACATH 10,000 unit PRN PRN Administration HD CATH Heparin Sodium (Porcine) 1,000 unit 08/05/23 13:26 08/07/23 15:41 Heparin, Porcine 1,000 Unit/Ml Inj 10 Ml IV 1,000 unit PRN PRN Administration HD IV Hydralazine HCl 25 mg 07/28/23 21:00 08/01/23 20:08 Hydralazine 25 Mg Tablet PO 25 mg TID JOCE Administration Fluconazole 200 mg in 100 mls @ 100 mls/hr 08/03/23 16:30 08/09/23 19:11 Diflucan Premix IV Infused Q24H JOCE Infusion Multivitamins 10 ml/ Amino 1,010 mls @ 23 mls/hr 08/09/23 16:00 08/10/23 06:00 Acids/Electrolytes IV 08/11/23 11:53 46 mls/hr .Q24H JOCE Infusion Protocol fat emulsions 20% 100 mls @ 8.333 mls/hr 08/09/23 16:00 08/10/23 02:10 Intralipid 20% IV Infused Q24H JOCE Infusion Insulin Human Lispro 0 unit 08/03/23 12:00 08/10/23 05:47 Insulin Lispro 100 Unit/1 Ml SUBCUT 10 unit Q6H JOCE Administration Protocol Levothyroxine Sodium 150 mcg 08/09/23 06:00 08/10/23 05:38 Levothyroxine 150 Mcg Tablet NG-TUBE 150 mcg QAM JOCE Administration Lidocaine 1 patch 07/29/23 12:11 08/09/23 19:56 Lidocaine 5% Patch TOPICAL Not Given [id number] JOCE Methylprednisolone Sodium Succinate 40 mg 08/07/23 20:00 08/09/23 20:13 Methylprednisolone Sod Succ 40 Mg/Ml Inj IVP 40 mg Q12H JOCE Administration Non-Formulary Medication 750 each 08/07/23 18:00 08/09/23 18:20 Non-Formulary Medication FEED TUBE 750 each BID JOCE Administration Nystatin 1 applic 08/03/23 18:00 08/09/23 18:19 Nystatin Powder 15 Gm Btl TOPICAL 1 applic BID JOCE Administration Pantoprazole Sodium 40 mg 08/04/23 18:00 08/09/23 18:19 Pantoprazole 40 Mg Sdv IVP 40 mg BID JOCE Administration Pyridostigmine [place] 60 mg 07/26/23 06:00 08/10/23 05:38 Pyridostigmine 60 Mg Tablet PO 60 mg QAM JOCE Administration Pertinent History/Comorbid Conditions* Medical History (Updated 08/05/23 @ 14:02 by Adriane Terry MD) Major depressive disorder, recurrent episode, moderate with anxious distress Duodenal ulcer due to bacteria Psychiatric care Coronary artery disease Immunization counseling High risk medication use Chronic knee pain Chronic low back pain COVID-14 August 2020 Seronegative rheumatoid arthritis of both hands Intermittent atrial fibrillation Poorly controlled diabetes mellitus UTI (urinary tract infection) CHF exacerbation Narrow complex tachycardia Inflammatory arthritis Osteoarthritis of knees, bilateral Fibromyalgia Lung nodule Unstable angina Low back pain of over 3 months duration Urgency incontinence Left renal mass COPD (chronic obstructive pulmonary disease) Oxygen dependent, 2 L at baseline Anxiety and depression Hypothyroidism Liver cirrhosis Hyperlipidemia Hypertension Recurrent UTI Surgical History (Updated 10/13/20 @ 13:33 by Bayron Browne MD) History of cholecystectomy History of thyroid surgery History of cardiac cath History of hysterectomy History of knee replacement Family History (Updated 10/02/19 @ 08:32 by Guera Ghosh LPN) CAD (coronary artery disease) Cancer Denies family history of Anesthesia complication Bleeding disorder Social History Smoking and tobacco/nicotine status: former use of tobacco/nicotine Quit status (tobacco/nicotine): has quit using Year quit tobacco: 2005 Second hand smoke exposure: No Alcohol intake: never Substance/Drug Use: never Adopted: No Caregiver/support person: No Lives independently: No Household members: spouse Marital status: Current occupational status: retired Current gender identity: Female Pertinent Exam Findings oriented x 3 (somnolent), regular rate & rhythm and procedure specific exam findings Recommendations Surgery/Procedure today Coding Level of Care Code Acute Code for Chg Fwsaul
[2023-08-10] MEDS: ipratropium-albuterol 3 mL Neb INHALATION ×4 (07:40→19:59)
--- NOTE | 2023-08-10 09:24 | PC.SOCIAL ---
IMM Update pg 2 of IMM updated and reviewed. Copy provided and copy dated, initialed and placed in chart.
[2023-08-10] MEDS: pantoprazole 40 mg SDV IVP ×2 (09:26→17:22)
[2023-08-10] MEDS: methylPREDNISolone sod succ 40 mg/mL INJ IVP ×2 (09:26→20:10)
[2023-08-10] MEDS: amiodarone 200 mg Tablet 400 MG NG-TUBE ×2 (09:27→17:22)
[2023-08-10] MEDS: lidocaine 5% Patch 1 PATCH TOPICAL (09:27)
[2023-08-10] MEDS: nystatin powder 15 gm Btl 1 APPLIC TOPICAL ×3 (09:28→22:41)
[2023-08-10] MEDS: zinc oxide oint 30 gm 1 APPLIC TOPICAL (09:28)
[2023-08-10] MEDS: NON-FORMULARY MEDICATION 750 EACH FEED TUBE ×2 (09:28→17:24)
[2023-08-10 10:34] LABS: P. Jirovecii DNA QL PCR NOT DETECTED
--- NOTE | 2023-08-10 10:41 | P.PN_ITS ---
Subjective 2 Subjective: on 4L NC Medications: Reviewed: Yes Vitals/I&O/Wt Last Vital Signs Temp 98.1 F 08/10/23 03:38 Pulse 90 08/10/23 07:42 Resp 17 08/10/23 07:41 BP 149/112 08/10/23 06:00 Pulse Ox 97 08/10/23 07:42 O2 Del Method BiPAP 08/10/23 07:41 O2 Flow Rate 4 08/10/23 00:00 FiO2 30 08/10/23 07:42 08/09/23 08/10/23 08/10/23 22:59 06:59 14:59 Intake Total 799.156 / 1099.156 406.344 / 1505.500 Output Total 50 / 3350 25 / 3375 Balance 749.156 / -2250.844 381.344 / -1869.500 Weight last 48 hrs Weight 106.9 kg Weight 107.864 kg Physical Exam 2 Narrative: on 4L NC Urinary Catheter Management: Manzanares Latex: Cath Placed During This Visit: yes, but has since been removed by the nurse Reason for Continuing Indwelling Catheter: Accurate Measurement of Urinary Output in Critically Ill Patients Urinary Catheter Date of Insertion: 07/27/23 Urinary Catheter Time of Insertion: 19:45 Date Urinary Catheter Removed: 08/03/23 Time Urinary Catheter Discontinued: 14:30 Manzanares: Cath Placed During This Visit: no Reason for Continuing Indwelling Catheter: Accurate Measurement of Urinary Output in Critically Ill Patients Data 08/10/23 04:01 08/10/23 04:01 Micro: Microbiology 08/04/23 19:30 Gram Stain - Final Sputum - Endotracheal Tube Aspirate Sputum Culture - Final Amber albicans 08/06/23 11:00 Gram Stain - Final Sputum - Endotracheal Tube Aspirate Sputum Culture - Final Amber albicans 08/06/23 07:50 Gram Stain - Final Lung Right Lower Lobe Bronchoalveolar Lavage Culture - Final Amber albicans A&P Assessment and plan (1) CYNTHIA (acute kidney injury): Plan 1. Acute on chronic kidney disease stage III: Baseline creatinine is in the 1 range, now has severe CYNTHIA with a creatinine of 3.9 and volume overload, patient became anuric in the last 24 hours. No significant response to diuretics. s/p temporary HD catheter placement and initiated hemodialysis for volume management.sassess daily for HD needs , Currently on 4 L NC , next HD tomorrow plan for PC placement today 2. Acute on chronic respiratory failure: Multifactorial, extubated , off pressors 3. Sepsis, secondary to pneumonia, on broad-spectrum antibiotics 4. A-fib 5. Morbid obesity Patient evaluated using audiovisual cart. Time spent 20 minutes. Attestations 2 Medical Necessity Statement*: per medicien Coding Level of Care Code Acute Code for Chg Fwd Diagnoses CYNTHIA (acute kidney injury) N17.9
[2023-08-10] MEDS: chlorhexidine gluconate 0.12% Btl 473 mL 15 ML MUCOUS MEM ×2 (10:45→17:23)
[2023-08-10 11:49] LABS: Glucose Point of Care 167 mg/dL (70-110)
[2023-08-10 11:49] LABS: Glucose Point of Care 251 mg/dL (70-110)
[2023-08-10 11:49] LABS: Glucose Point of Care 211 mg/dL (70-110)
--- NOTE | 2023-08-10 11:54 | P.CONIM_ITS ---
Providers/Reason For Consult 2 Consulting Physician/Specialty*: General surgery Reason for Consult*: Need for dialysis catheter Attending Physician: Opal Marie MD Primary Care Provider: Davion Griggs MD History of Present Illness History of Present Illness Myesha Parker is a 72 year old female who was admitted to the hospital with fluid overload and altered mental status, she was noted to have acute on chronic kidney injury, after multiple episodes of dialysis nephrology has determined that the patient will require long-term dialysis and therefore I have been consulted for placement of dialysis catheter. Review of Systems 2 Narrative: Unable to complete due to patient clinical status. Medications/Allergies Home Medications Medication Instructions Recorded Confirmed Last Taken Type acetaminophen 650 mg 650 mg PO Q4H PRN Pain 10/12/19 07/25/23 11/04/21 History tablet,extended release (Arthritis Pain Reliever) cholecalciferol (vitamin D3) 25 1,000 unit PO QAM 10/12/19 07/25/23 07/25/23 History mcg (1,000 unit) tablet (Vitamin D3) nitroglycerin 0.4 mg sublingual 0.4 mg sublingual Q5M PRN Chest 02/08/21 07/25/23 Unknown Rx tablet (Nitrostat) Pain #30 tabs chlorpheniramine maleate 4 mg See Rx Instructions .Route .COMPLEX 03/16/21 07/25/23 07/25/23 History tablet (ChlorTabs) cyanocobalamin (vitamin B-12) 500 500 mcg PO QAM 03/16/21 07/25/23 07/25/23 History mcg tablet (Vitamin B-12) diphenhydramine HCl 25 mg capsule See Rx Instructions .Route .COMPLEX 03/16/21 07/25/23 06/29/23 History (Benadryl) docusate sodium 250 mg capsule 250 mg PO QAM 03/16/21 07/25/23 07/25/23 History (Stool Softener) ferrous gluconate 324 mg (37.5 mg 324 mg PO DAILY@12 05/06/21 07/25/23 07/24/23 History iron) tablet calcium carbonate 600 mg calcium 600 mg PO DAILY@12 06/27/21 07/25/23 07/24/23 History (1,500 mg) tablet (Calcium) levothyroxine 150 mcg tablet 150 mcg PO QAM 06/27/21 07/25/23 07/25/23 History (Euthyrox) pantoprazole 40 mg tablet,delayed 40 mg PO BID 09/13/21 07/25/23 07/25/23 History release hydralazine 10 mg tablet 10 mg PO TID #270 tabs 04/03/23 07/25/23 07/25/23 06:30 Rx lisinopril 40 mg tablet 40 mg PO QPM #30 tabs 04/03/23 07/25/23 07/24/23 Rx magnesium L-lactate 84 mg 84 mg PO BID #180 tabs 04/03/23 07/25/23 07/25/23 Rx tablet,extended release pyridostigmine bromide 60 mg tablet 60 mg PO QAM 04/17/23 07/25/23 1 Week Ago History ~07/18/23 tramadol 50 mg tablet 50 mg PO TID 04/17/23 07/25/23 1 Week Ago History ~07/18/23 methotrexate sodium 2.5 mg tablet 15 mg (6 x 2.5 mg) PO Q7D #90 tabs 04/24/23 07/25/23 2 Weeks Ago Rx ~07/11/23 glucose 4 gram chewable tablet 4 g PO PRN PRN Hypoglycemia 06/17/23 07/25/23 Unknown History metoprolol succinate 100 mg 100 mg PO QAM 06/17/23 07/25/23 07/25/23 History tablet,extended release 24 hr fluticasone fur. 200 mcg-umeclid 1 inh inhalation DAILY #28 ea 06/20/23 07/25/23 06/30/23 Rx 62.5 mcg-vilant 25 mcg inhalat.powder (Trelegy Ellipta) adalimumab 40 mg/0.8 mL See Rx Instructions .Route 06/26/23 07/25/23 07/21/23 Rx subcutaneous pen kit (Humira Pen) .COMPLEX #2 ea atorvastatin 80 mg tablet 80 mg PO BEDTIME 07/25/23 07/25/23 07/24/23 History digoxin 125 mcg (0.125 mg) tablet See Rx Instructions .Route .COMPLEX 07/25/23 07/25/23 07/25/23 History 62.5mcg duloxetine 60 mg capsule,delayed 60 mg PO QAM 07/25/23 07/25/23 07/25/23 History release folic acid 1 mg tablet 1 mg PO QAM 07/25/23 07/25/23 07/25/23 History furosemide 20 mg tablet 20 mg PO QAM 07/25/23 07/25/23 07/25/23 History hydrocodone 7.5 mg-acetaminophen 1 tab PO TID 07/25/23 07/25/23 07/25/23 History 325 mg tablet insulin lispro 100 unit/mL See Rx Instructions .Route .COMPLEX 07/25/23 07/25/23 Unknown History subcutaneous pen levofloxacin 750 mg tablet 750 mg PO DAILY@17 07/25/23 07/25/23 07/24/23 History omega-3 fatty acids 1,000 mg 2,000 mg PO BEDTIME 07/25/23 07/25/23 07/24/23 History capsule potassium chloride 20 mEq 20 meq PO QAM 07/25/23 07/25/23 07/25/23 History tablet,extended release pyridoxine (vitamin B6) 500 mg 500 mg PO QAM 07/25/23 07/25/23 07/25/23 History tablet riboflavin (vitamin B2) 100 mg 100 mg PO QAM 07/25/23 07/25/23 07/25/23 History tablet (Vitamin B-2) zinc acetate 50 mg (zinc) capsule 50 mg PO DAILY@12 07/25/23 07/25/23 07/24/23 History atovaquone 750 mg/5 mL oral 750 mg (5 mL) PO BID #210 mL 08/07/23 Unknown Rx suspension Allergies Allergy/AdvReac Type Severity Reaction Status Date / Time adhesive tape Allergy rash Verified 06/30/23 17:49 cinnamon Allergy sinus Verified 06/30/23 17:49 codeine Allergy unknown Verified 06/30/23 17:49 cedar Allergy sinus Uncoded 06/30/23 17:49 pine Allergy sinus Uncoded 06/30/23 17:49 pork food Allergy ADR-Nausea Uncoded 06/30/23 17:49 Current Medications Generic Name Dose Route Start Last Admin Trade Name Freq PRN Reason Stop Dose Admin Acetaminophen 650 mg 07/25/23 18:56 07/28/23 12:19 Acetaminophen 325 Mg Tablet PO 650 mg Q6H PRN Administration Mild/Mod Pain Or Temp >/= 101 Albuterol/Ipratropium 3 ml 07/25/23 20:00 08/10/23 11:33 Ipratropium-Albuterol 3 Ml Neb INHALATION 3 ml QID.RESPIRATORY JOCE Administration Amiodarone HCl 400 mg 08/08/23 10:11 08/10/23 09:27 Amiodarone 200 Mg Tablet NG-TUBE 400 mg BID JOCE Administration Atorvastatin Calcium 80 mg 08/08/23 21:00 08/09/23 20:13 Atorvastatin 40 Mg Tablet NG-TUBE 80 mg BEDTIME JOCE Administration Bumetanide 1 mg 08/03/23 15:00 08/04/23 09:28 Bumetanide 0.25 Mg/Ml Sdv 4 Ml IVP 1 mg TID JOCE Administration Chlorhexidine Gluconate 15 ml 08/02/23 18:00 08/10/23 10:45 Chlorhexidine Gluconate 0.12% Btl 473 Ml MUCOUS MEM 15 ml BID JOCE Administration Chlorhexidine Gluconate 1 applic 08/05/23 22:00 08/10/23 00:15 Chlorhexidine Gluconate 4% Btl 118 Ml TOPICAL 1 applic Q24H JOCE Administration Duloxetine HCl 60 mg 07/26/23 06:00 08/10/23 05:38 Duloxetine 60 Mg Capsule PO 60 mg QAM JOCE Administration Heparin Sodium (Porcine) 10,000 unit 08/05/23 13:25 08/07/23 15:42 Heparin, Porcine 1,000 Unit/Ml Inj 10 Ml INTRACATH 10,000 unit PRN PRN Administration HD CATH Heparin Sodium (Porcine) 1,000 unit 08/05/23 13:26 08/07/23 15:41 Heparin, Porcine 1,000 Unit/Ml Inj 10 Ml IV 1,000 unit PRN PRN Administration HD IV Hydralazine HCl 25 mg 07/28/23 21:00 08/01/23 20:08 Hydralazine 25 Mg Tablet PO 25 mg TID JOCE Administration Fluconazole 200 mg in 100 mls @ 100 mls/hr 08/03/23 16:30 08/09/23 19:11 Diflucan Premix IV Infused Q24H JOCE Infusion Multivitamins 10 ml/ Amino 1,010 mls @ 23 mls/hr 08/09/23 16:00 08/10/23 06:00 Acids/Electrolytes IV 08/11/23 11:53 46 mls/hr .Q24H JOCE Infusion Protocol fat emulsions 20% 100 mls @ 8.333 mls/hr 08/09/23 16:00 08/10/23 02:10 Intralipid 20% IV Infused Q24H JOCE Infusion Insulin Human Lispro 0 unit 08/03/23 12:00 08/10/23 11:39 Insulin Lispro 100 Unit/1 Ml SUBCUT 8 unit Q6H JOCE Administration Protocol Levothyroxine Sodium 150 mcg 08/09/23 06:00 08/10/23 05:38 Levothyroxine 150 Mcg Tablet NG-TUBE 150 mcg QAM JOCE Administration Lidocaine 1 patch 07/29/23 12:11 08/10/23 09:27 Lidocaine 5% Patch TOPICAL 1 patch [id number] JOCE Administration Methylprednisolone Sodium Succinate 40 mg 08/07/23 20:00 08/10/23 09:26 Methylprednisolone Sod Succ 40 Mg/Ml Inj IVP 40 mg Q12H JOCE Administration Non-Formulary Medication 750 each 08/07/23 18:00 08/10/23 09:28 Non-Formulary Medication FEED TUBE 750 each BID JOCE Administration Nystatin 1 applic 08/03/23 18:00 08/10/23 09:28 Nystatin Powder 15 Gm Btl TOPICAL 1 applic BID JOCE Administration Pantoprazole Sodium 40 mg 08/04/23 18:00 08/10/23 09:26 Pantoprazole 40 Mg Sdv IVP 40 mg BID JOCE Administration Pyridostigmine [place] 60 mg 07/26/23 06:00 08/10/23 05:38 Pyridostigmine 60 Mg Tablet PO 60 mg QAM JOCE Administration Zinc Oxide 1 applic 08/08/23 16:18 08/10/23 09:28 Zinc Oxide Oint 30 Gm TOPICAL 1 applic PRN PRN Administration SKIN PROTECTANT PFSH Acute 2 PFSH: Medical History Major depressive disorder, recurrent episode, moderate with anxious distress Duodenal ulcer due to bacteria Psychiatric care Coronary artery disease Immunization counseling High risk medication use Chronic knee pain Chronic low back pain COVID-14 August 2020 Seronegative rheumatoid arthritis of both hands Intermittent atrial fibrillation Poorly controlled diabetes mellitus UTI (urinary tract infection) CHF exacerbation Narrow complex tachycardia Inflammatory arthritis Osteoarthritis of knees, bilateral Fibromyalgia Lung nodule Unstable angina Low back pain of over 3 months duration Urgency incontinence Left renal mass COPD (chronic obstructive pulmonary disease) Oxygen dependent, 2 L at baseline Anxiety and depression Hypothyroidism Liver cirrhosis Hyperlipidemia Hypertension Recurrent UTI Surgical History History of cholecystectomy History of thyroid surgery History of cardiac cath History of hysterectomy History of knee replacement Family History Other CAD (coronary artery disease) Cancer Denies family history of Anesthesia complication Bleeding disorder Social History Smoking and tobacco/nicotine status: former use of tobacco/nicotine Quit status (tobacco/nicotine): has quit using Year quit tobacco: 2005 Second hand smoke exposure: No Alcohol intake: never Substance/Drug Use: never Adopted: No Caregiver/support person: No Lives independently: No Household members: spouse Marital status: Current occupational status: retired Current gender identity: Female Vitals/I&O/Wt Last Vital Signs Temp 98.1 F 08/10/23 03:38 Pulse 102 H 08/10/23 11:33 Resp 20 H 08/10/23 11:33 BP 149/112 08/10/23 06:00 Pulse Ox 100 08/10/23 11:33 O2 Del Method Nasal Cannula 08/10/23 11:33 O2 Flow Rate 4 08/10/23 11:33 FiO2 30 08/10/23 07:42 08/09/23 08/10/23 08/10/23 22:59 06:59 14:59 Intake Total 799.156 / 1099.156 406.344 / 1505.500 Output Total 50 / 3350 25 / 3375 Balance 749.156 / -2250.844 381.344 / -1869.500 Weight last 48 hrs Weight 235 lb 10.786 oz Weight 237 lb 12.8 oz Physical Exam 2 Narrative: Patient is somnolent, not very communicative during my examination, neck exam is normal, but patient has elevated body mass index. Abdominal exam is benign. Urinary Catheter Management: Manzanares Latex: Cath Placed During This Visit: yes, but has since been removed by the nurse Reason for Continuing Indwelling Catheter: Accurate Measurement of Urinary Output in Critically Ill Patients Urinary Catheter Date of Insertion: 07/27/23 Urinary Catheter Time of Insertion: 19:45 Date Urinary Catheter Removed: 08/03/23 Time Urinary Catheter Discontinued: 14:30 Manzanares: Cath Placed During This Visit: no Reason for Continuing Indwelling Catheter: Accurate Measurement of Urinary Output in Critically Ill Patients Data 08/10/23 04:01 08/10/23 04:01 Micro: Microbiology 08/04/23 19:30 Gram Stain - Final Sputum - Endotracheal Tube Aspirate Sputum Culture - Final Amber albicans 08/06/23 11:00 Gram Stain - Final Sputum - Endotracheal Tube Aspirate Sputum Culture - Final Amber albicans 08/06/23 07:50 Gram Stain - Final Lung Right Lower Lobe Bronchoalveolar Lavage Culture - Final Amber albicans A&P Assessment and plan (1) Morbid obesity: (2) CKD (chronic kidney disease): Plan After complete history physical examination and review of all available clinical data the following is my assessment. Patient will benefit from tunneled dialysis catheter. The plan was to proceed today with tunneled dialysis catheter, unfortunately patient ate after my evaluation this morning, due to this we will have to postpone dialysis catheter placement to Sunday. Please keep patient n.p.o. after midnight on Sunday, in the interim temporary dialysis catheter can continue to be used. -Dialysis catheter placement on Sunday. Coding Level of Care Code 13785 Diagnoses Morbid obesity E66.01 CKD (chronic kidney disease) N18.9
[2023-08-10 13:09] LABS: Clostridium Difficile PCR NOT DETECTED (NOT DETECTED)
--- NOTE | 2023-08-10 14:06 | PM.PN ---
Subjective Subjective: More alert and awake today. Able to follow commands. Answers all questions in conversation. Was planned for a permacath placement today, however this had to be deferred as patient ate earlier today. Medications: Reviewed: Yes Vitals/I&O/Wt Last Vital Signs Temp 97.8 F 08/10/23 08:00 Pulse 86 08/10/23 12:30 Resp 17 08/10/23 12:30 BP 186/101 08/10/23 12:30 Pulse Ox 96 08/10/23 12:30 O2 Del Method Nasal Cannula 08/10/23 12:30 O2 Flow Rate 4 08/10/23 11:33 FiO2 3 08/10/23 12:30 08/09/23 08/10/23 08/10/23 22:59 06:59 14:59 Intake Total 799.156 / 1099.156 406.344 / 1505.500 389.467 / 389.467 Output Total 50 / 3350 25 / 3375 25 / 25 Balance 749.156 / -2250.844 381.344 / -1869.500 364.467 / 364.467 Weight last 48 hrs Weight 106.9 kg Weight 107.864 kg Physical Exam Narrative: General: Lethargic, drowsy, extremely deconditioned HEENT: PERRLA, pupils bilaterally equal and reactive, pallors not present Chest: Reduced breath sounds right lower lobe CVS: S1-S2 regular, no murmurs, no tachycardia, no gallops, no rubs Abdomen: Soft, nontender, no organomegaly, bowel sounds present Urinary Catheter Management: Manzanares Latex: Cath Placed During This Visit: yes, but has since been removed by the nurse Reason for Continuing Indwelling Catheter: Accurate Measurement of Urinary Output in Critically Ill Patients Urinary Catheter Date of Insertion: 07/27/23 Urinary Catheter Time of Insertion: 19:45 Date Urinary Catheter Removed: 08/03/23 Time Urinary Catheter Discontinued: 14:30 Manzanares: Cath Placed During This Visit: no Reason for Continuing Indwelling Catheter: Accurate Measurement of Urinary Output in Critically Ill Patients Data 08/10/23 04:01 08/10/23 04:01 Micro: Microbiology 08/04/23 19:30 Gram Stain - Final Sputum - Endotracheal Tube Aspirate Sputum Culture - Final Amber albicans 08/06/23 11:00 Gram Stain - Final Sputum - Endotracheal Tube Aspirate Sputum Culture - Final Amber albicans 08/06/23 07:50 Gram Stain - Final Lung Right Lower Lobe Bronchoalveolar Lavage Culture - Final Amber albicans A&P Assessment and plan (1) COPD (chronic obstructive pulmonary disease): Qualifiers: COPD type: unspecified COPD Qualified Code(s): J44.9 - Chronic obstructive pulmonary disease, unspecified (2) Acute and chronic respiratory failure with hypoxia: (3) PNA (pneumonia): (4) Pleural effusion: (5) CHF (congestive heart failure): acute on chronic with preserved EF Qualifiers: Heart failure type: diastolic Heart failure chronicity: acute on chronic Qualified Code(s): I50.33 - Acute on chronic diastolic (congestive) heart failure (6) Ventilator dependence: (7) Respiratory failure: (8) Acute respiratory failure with hypoxia and hypercarbia: (9) Respiratory acidosis: (10) Multiorgan failure: Plan 72-year-old lady with COPD, CHF, immunocompromised on Humira ,currently admitted to the hospital with acute on chronic hypoxic respiratory failure with multiple recent hospital admissions for the same reason.Recent chest x-rays and CAT scans have shows bilateral infiltrates which may represent persisting pneumonic infiltrates. Hospital course has been notable for ventilator dependent respiratory failure, with acute worsening on August 02, 2023. # Acute on chronic hypoxic respiratory failure, currently ventilator dependent. Likely multifactorial relating to persistent pneumonic infiltrates versus pulmonary edema versus acute aspiration event on August 02. Recent chest x-rays and CAT scans have shows bilateral infiltrates which have been persistent over the past month. Status post bronchoscopy on 08/06/2023. Pending respiratory cultures from [facility]. Pending PJP PCR, AFB culture and MTB PCR from August 06, 2023 evaluation ongoing for opportunistic pneumonia Thus far evaluation has been significant for elevated beta glucan at 123. While this remains nonspecific, given that patient is immunocompromised, has been on multiple steroids over the past month for COPD exacerbations, clinical suspicion for pneumocystis pneumonia. Patient started empiric Bactrim treatment at PJP dosing on July 31, 2023.Currently renally dosed at Bactrim 2 tabs p.o. daily. This has been complicated by development of acute renal failure, creatinine trending up to 2.3 and persisting hyponatremia with following sodium down to 126 today. Will discontinue Bactrim today given worsening renal numbers, following urine output. Change presumptive [facility] coverage [facility] daily. Added methylprednisolone 40 mg IV every 8 hours, again for presumptive PJP treatment while awaiting PCR results. Titrate down to every 12 hours. She is on Humira, evaluation ongoing to rule out TB. AFB smear negative x 1 from July 27, 2023, positive specimens unable to be sent out. Now collected from [facility] performed on August 06, 2023. MTB PCR pending from [facility]. Previously submitted from sputum was declined as it was not a satisfactory specimen. Negative QuantiFERON, also previously negative from 2019. Reports history of PPD positivity which were deemed to be false positives Negative serum Aspergillus galactomannan Negative histoplasma and Coccidioides serology. Patient denies any history of recent travel. She has noted to have bilateral pleural effusions additionally, thoracentesis was attempted on her most recent admission for diagnostic purposes, however there was insufficient fluid to proceed. b-d glucan weakly positive. negative respiratory viral panel. Echocardiogram from July 01, 2023 showed normal left ventricular size systolic function and wall thickness without regional wall motion abnormalities. LVEF of 65%. Aortic valve sclerosis without stenosis. s/p Zosyn 07/25-08/03; then 08/05-current s/p vancomycin 07/24-07/30; then 08/05-08/07 #Gram-positive bacteremia, on 08/02 identified as Staph hominis 1/2 cutures likely contaminant blooc cx 08/03 negative to date Discontinue vancomycin Respiratory and blood cultures negative for MRSA #Acute kidney injury, prerenal possibly ATN. Currently on dialysis Appreciate nephrology recommendations Discontinue Bactrim CBC without any peripheral eosinophils, no rash, lower possibility of dress syndrome #Acute on chronic diasotlic HF Previously on Bumex, now on dialysis unclear at this time if dialysis would be needed long-term or not #Immunocompromised, on adalimumab, methrotrexate outpatient #A-fib with RVR Currently on amiodarone infusion Discontinue infusion. Changed to amiodarone 400 mg via NG tube not on a/c due to history of bleeding #Acute on chronic anemia Hemoglobin 7.1. Trend closely. Labs do not appear to have been drawn this morning for CBC. Unclear why. ? Protonix IV twice daily to continue ? Full Code DVT PPX: SCDs. GI ppx: protonix 40 IV BID Prognosis is poor. Nursing staff and updated bedside in a lot of detail. All questions were answered to his satisfaction. Plan for today 08/08: Extubated yesterday. ABG performed this morning 7.32/52.2/76.3. Settings adjusted. Not significantly hypercapnic to explain her visit persisting lethargy at this time. Check COVID antigen. Place NGT to administer oral meds. Start TPN. Place PICC line as anticipated prolonged hospitalization with need for continuous IV access. Respiratory cultures with yeast. Patient adequately covered with fluconazole. Suspect this is related to thrush. Still pending PCP PCR and MTB PCR. Will follow-up pending studies. Discontinue piperacillin/tazobactam over the next 24 hours if cultures remain unrevealing for other organisms. Continue IV steroids. Plan for today: 08/09/2023. Slightly more awake today compared to yesterday. Developing tachycardia with heart rate up to 124. Resume home dose of metoprolol. Transfuse 1 unit packed red blood cell. Target hemoglobin of 8 patient with A-fib and persistent tachycardia. Developing stage I pressure injury. Started zinc oxide. Frequent repositioning. Discontinue piperacillin/tazobactam. Wean off BiPAP to nasal cannula today. Depending on how well patient is able to sustain her breathing further disposition plans and decisions regarding trach/PEG. TPN was unable to be started yesterday. Orders placed again today. PT OT once more awake Plan for today: 08/10/2023. Patient is more alert and awake today. She is able to maintain her airway. On supplemental oxygen at 3 L/min. Central line has been discontinued. She was intended to get a permacath placement today, however she had a few sips of different consistency foods as part of a swallow evaluation therefore surgery had to be canceled. Will reattempt tomorrow. Continue participating with his PT OT. Started on a modified diet versus speech therapy evaluation. No HD today per renal. Creatinine and other labs are stable. Microbiology results pending. Add as needed IV hydralazine for hypertension. Attestations Medical Necessity Statement*: Permacath placement tomorrow. Speech assessment today. Trial of diet. Extremely deconditioned. Will need extensive ongoing physical therapy to attain previous level of functioning. Coding Level of Care Code Acute Code for Chg Fwd High MDM includes number and complexity of problems actively addressed during encounter, amount and/or complexity of data reviewed/ordered and described risk of complication, morbidity or mortality of management as documented Diagnoses Chronic obstructive pulmonary disease, unspecified COPD type J44.9 COPD type: unspecified COPD Acute and chronic respiratory failure with hypoxia J96.21 PNA (pneumonia) J18.9 Pleural effusion J90 Acute on chronic diastolic congestive heart failure I50.33 Heart failure type: diastolic Heart failure chronicity: acute on chronic Ventilator dependence Z99.11 Respiratory failure J96.90 Acute respiratory failure with hypoxia and hypercarbia J96.01; J96.02 Respiratory acidosis E87.29 Multiorgan failure
[2023-08-10 15:04] LABS: Aspergillus Source WHOLE BLOOD; Aspergillus Supp NOT DETECTED; Aspergillus Terreus DNA NOT DETECTED
--- NOTE | 2023-08-10 16:41 | P.PN_ITS ---
Subjective 2 Subjective: Mentation has significantly improved; appears more alert Speech evaluation done-recommended dysphagia level 5 minced and moist diet with mildly thick liquids and advance as tolerated Permacath deferred as patient ate today morning She is on BiPAP 22/8 and 30% FiO2 and saturating well Hemodialysis as per renal team Medications: Reviewed: Yes Vitals/I&O/Wt Last Vital Signs Temp 97.8 F 08/10/23 08:00 Pulse 93 08/10/23 15:23 Resp 22 H 08/10/23 15: BP 186/101 08/10/23 12:30 Pulse Ox 98 08/10/23 15:23 O2 Del Method BiPAP 08/10/23 15: O2 Flow Rate 4 08/10/23 11:33 FiO2 30 08/10/23 15:23 08/10/23 08/10/23 08/10/23 06:59 14:59 22:59 Intake Total 406.344 / 1505.500 389.467 / 389.467 Output Total / 5 Balance 381.344 / -1869.500 364.467 / 364.467 Weight last 48 hrs Weight 235 lb 10.786 oz Weight 237 lb 12.8 oz Physical Exam 2 Narrative: General: Appears extremely drowsy, weak not in acute respiratory distress HEENT: conj clear, EOMI, PERRL, mmm, Neck: supple, no meningismus Heme: no cervical LAP Respiratory: Inspection: No visible deformity of the chest wall Palpation: Trachea is mildly deviated to the right, bilateral symmetric expansion Percussion: Bilateral tympanic percussion note both anterior and posteriorly Auscultation: Diffuse crackles Cardiovascular: rrr, nl s1s2, no mrg Abdomen: soft, nt, nd, no r/g, bs+ Extremities: pulses +, 1+ pitting pedal edema, no c/c : no CVA tenderness Skin: intact, no rash MSK: no back or neck pain Neurologic: grossly intact Urinary Catheter Management: Manzanares Latex: Cath Placed During This Visit: yes, but has since been removed by the nurse Reason for Continuing Indwelling Catheter: Accurate Measurement of Urinary Output in Critically Ill Patients Urinary Catheter Date of Insertion: 07/27/23 Urinary Catheter Time of Insertion: 19:45 Date Urinary Catheter Removed: 08/03/23 Time Urinary Catheter Discontinued: 14:30 Manzanares: Cath Placed During This Visit: no Reason for Continuing Indwelling Catheter: Accurate Measurement of Urinary Output in Critically Ill Patients Data 08/10/23 04:01 08/10/23 04:01 Micro: Microbiology 08/04/23 19:30 Gram Stain - Final Sputum - Endotracheal Tube Aspirate Sputum Culture - Final Amber albicans 08/06/23 11:00 Gram Stain - Final Sputum - Endotracheal Tube Aspirate Sputum Culture - Final Amber albicans 08/06/23 07:50 Gram Stain - Final Lung Right Lower Lobe Bronchoalveolar Lavage Culture - Final Amber albicans A&P Assessment and plan (1) Acute respiratory failure with hypoxia and hypercarbia: (2) Ventilator dependence: (3) CHF (congestive heart failure): Qualifiers: Heart failure type: diastolic Heart failure chronicity: acute on chronic Qualified Code(s): I50.33 - Acute on chronic diastolic (congestive) heart failure (4) Seronegative rheumatoid arthritis of both hands: (5) High risk medication use: (6) Morbid obesity: (7) Chronic atrial fibrillation: (8) CYNTHIA (acute kidney injury): Plan # Acute hypoxic/hypercapnic respiratory failure in patient with underlying COPD, diastolic heart failure, chronic bilateral pleural effusions, morbid obesity # History of rheumatoid arthritis on Humira and immunosuppressive medications- rule out underlying opportunistic infections # CYNTHIA on CKD-currently on Levophed # Chronic F-idt-bxhbujavc rate controlled-started on amiodarone drip # Hypokalemia and hypomagnesemia-supplement and monitor # Large bilateral pleural effusions-Improved with dialysis #Sputum cultures positive for AFB; urine cultures positive for Amber albicans- patient is currently on fluconazole -Intubated and sedated-currently on fentanyl/propofol-she is on minimal vent settings-ABG acceptable patient baseline CO2 is around 60-made ventilator changes accordingly- -CTA 08/02/2023-ruled out PE; large bilateral pleural effusions; very difficult to do ultrasound-guided thoracentesis given her body habitus; however she was started on hemodialysis -Patient is on IV Bactrim (day 4 )as well as Zosyn--which may have been contributing to excess volume-along with A-fib RVR -Off pressors -Bronchoscopy 10/07/2022-revealed copious amount of secretions blocking right lower lobe subsegments-they were suctioned out and BAL sent for various studies - Sugars are moderately controlled-On insulin scale coverage -workup so far negative for respiratory viral panel, COVID-19,; Given her immunosuppression for rheumatoid arthritis-extensive workup was sent -Amiodarone IV switched to oral amiodarone -Patient is also receiving TPN - So for beta D glucan weekly positive-PCP PCR, histoplasma antigen, coccidioidomycosis--negative; on tapering dose of steroids-on atovaquone prophylaxis - She is in airborne isolation-sputum for MTB-is pending; TB QuantiFERON is negative -Hemodialysis as per renal team -Maintaining airway and saturations on BiPAP-improvement in her mentation ICU CHECKLIST: Problem list updated Verbal orders reviewed and signed Code Status: Full code Disposition: ICU Critically ill: Yes MD discussed with: Hospitalist, RN, RT Prognosis: Critical Family: updated about medical condition, plan of management, prognosis at bedside Analgesia: N/A Glycemic Control: Scale coverage Nutrition: Trickle feeding Restraint Renewal (within 24 hrs): Yes Ulcer Prophylaxis: PPI Chemical Thromboprophylaxis: Prophylaxis: Heparin Mechanical Thromboprophylaxis: SCD Need for Central line: Yes for pressors Need for Manzanares catheter: Yes for urine output monitoring Attestations 2 Medical Necessity Statement*: Gradually improving-May need permacath placement and then transferred to floor once she is more alert and awake Time Spent in Patient Care: Greater than 35 minutes (>than 50% of time spent in counselling and/or direct pt care on unit) . Critical Care Time: The high probability of a clinically significant, sudden or life threatening deterioration of the patient's [renal, respiratory, cardiovascular] system(s) required my full and direct attention, intervention and personal management. The critical care time is as shown. This time is in addition to time spent performing any reported procedures but includes the following: [x] Data and vital sign review and interpretation [x] Patient assessment, examination and intervention [x] Documentation [x] Medication orders and management Critical Care Time (min): 52 Coding Level of Care Code Acute Code for Chg Fwd Diagnoses Acute respiratory failure with hypoxia and hypercarbia J96.01; J96.02 Ventilator dependence Z99.11 Acute on chronic diastolic congestive heart failure I50.33 Heart failure type: diastolic Heart failure chronicity: acute on chronic Seronegative rheumatoid arthritis of both hands M06.041; M06.042 High risk medication use Z79.899 Morbid obesity E66.01 Chronic atrial fibrillation I48.20 CYNTHIA (acute kidney injury) N17.9 Time Spent (min) 52
[2023-08-10 17:14] LABS: MTB Complex Respiratory PCR NOT DETECTED; MTB Source BRONCHIAL WASH
[2023-08-10 17:14] LABS: MTB Complex Respiratory PCR NOT DETECTED; MTB Source SPUTUM
[2023-08-10] MEDS: fluconazole premix 200 MG/100 ML PREMIX 100 MG IV (17:22)
[2023-08-10] MEDS: AA-Dex 5%-20% w/Lytes 1,000 ML with multivitamin inj 10 ML 69 ML IV (17:29)
[2023-08-10 18:03] LABS: Glucose Point of Care 245 mg/dL (70-110)
--- NOTE | 2023-08-10 19:30 | PC.NURSE ---
Shift summary: Pt rested in bed throughout the shift. She was able to tolerate being off BIPa for most of the shift, used 3 lpm/NC when off BiPap. She still has TPN infusing, rate increased to 69ml/hr this shift, goal is 83ml/hr. Orders to start heparin gtt received, awaiting pharmacy verification to start. NG patent and used to admin medications. Anuria present, only 25ml of urine this shift. Rectal tube remains in place. The excoriation ion her perineal area is healing well. Her bottom still has slight excoriation plus that pressure injury. Zinc oxide and nystatin applied to areas as appropriate. Gerardo, her , has been at bed side throughout most of the shift.
[2023-08-10] MEDS: atorvastatin 40 mg Tablet 80 MG NG-TUBE (20:10)
[2023-08-10] MEDS: heparin drip 25,000 UNIT/500 ML PREMIX 31 UNIT IV (20:13)
[2023-08-10 23:42] LABS: Glucose Point of Care 277 mg/dL (70-110)
[2023-08-11] VITALS (53 sets, daily range): BP systolic 96–173; BP diastolic 47–108; PULSE 84–138; RESP 15–37; TEMP 36.1–36.8; O2SAT 93–100; BMI 33.7
[2023-08-11] MEDS: hyDRALAzine 20 mg/mL INJ 1 mL 10 MG IVP (02:37)
[2023-08-11 02:44] LABS: Partial Thromboplastin Time 99.8 SECONDS (23.9-36.7)
[2023-08-11 05:11] LABS: Basophils % 0.1 %; Hematocrit 28.5 % (36-47); Lymphocytes # 0.2 10^3/uL (0.8-4.8); Lymphocytes % 2.1 %; Mean Corpuscular HGB Conc 30.5 g/dL (30-55); Mean Corpuscular Hemoglobin 26.5 pg (27-33); Mean Corpuscular Volume 86.9 fl (85-98); Monocytes # 0.3 10^3/uL (0.2-0.9); Monocytes % 4.6 %; Neutrophils # 6.46 10^3/uL (1.8-7.7); Neutrophils % 91.9 %; Nucleated Red Blood Cells # 0.1 /100WBC; Nucleated Red Blood Cells % 0.7 %; Platelet Count 154 10^3/cmm (157-399); Red Blood Count 3.28 10^6/uL (3.85-5.65); Red Cell Distribution Width 17.1 % (12.1-15.1); White Blood Count 7.03 10^3/uL (3.29-11.43)
[2023-08-11 05:35] LABS: Alanine Aminotransferase 28 U/L (0-33); Alkaline Phosphatase 84 U/L (35-105); Anion Gap 17.5 (5-19); Aspartate Amino Transferase 33 U/L (0-32); Blood Urea Nitrogen 49 mg/dL (8-23); Calcium 8.5 mg/dL (8.5-10.5); Carbon Dioxide 24 mmol/L (22-29); Chloride 92 mmol/L (98-107); Globulin 2.7 g/dL (1.3-4.6); Glucose 356 mg/dL (65-115); Osmolality Calculated 297 mOsm/kg (285-295); Potassium 3.5 mmol/L (3.5-5.1); Sodium 130 mmol/L (136-145); Total Bilirubin 0.2 mg/dL (0.15-1.2); Total Protein 5.7 g/dL (6.6-8.7)
[2023-08-11] MEDS: pyridostigmine 60 mg Tablet PO (05:40)
[2023-08-11] MEDS: duloxetine 60 mg Capsule PO (05:40)
[2023-08-11] MEDS: levothyroxine 150 mcg Tablet NG-TUBE (05:40)
[2023-08-11] MEDS: zinc oxide oint 30 gm 1 APPLIC TOPICAL (05:56)
[2023-08-11] MEDS: acetaminophen 325 mg Tablet 650 MG PO (06:12)
[2023-08-11] MEDS: insulin lispro 100 unit/1 mL SUBCUT ×3 (06:13→23:13)
[2023-08-11] MEDS: AA-Dex 5%-20% w/Lytes 1,000 ML with multivitamin inj 10 ML 83 ML IV (06:43)
[2023-08-11] MEDS: ipratropium-albuterol 3 mL Neb INHALATION ×3 (07:55→19:57)
[2023-08-11 08:33] LABS: Glucose Point of Care 327 mg/dL (70-110)
[2023-08-11 08:33] LABS: Glucose Point of Care 324 mg/dL (70-110)
--- NOTE | 2023-08-11 08:34 | PC.NURSE ---
TPN on hold per verbal order from Dat[employer].
[2023-08-11] MEDS: heparin, porcine 1,000 unit/mL INJ 10 mL 1000 UNIT IV (08:38)
[2023-08-11] MEDS: pantoprazole 40 mg SDV IVP ×2 (08:56→17:56)
[2023-08-11] MEDS: amiodarone 200 mg Tablet 400 MG NG-TUBE (08:56)
[2023-08-11] MEDS: methylPREDNISolone sod succ 40 mg/mL INJ IVP (08:56)
[2023-08-11] MEDS: chlorhexidine gluconate 0.12% Btl 473 mL 15 ML MUCOUS MEM ×2 (08:57→18:01)
[2023-08-11] MEDS: NON-FORMULARY MEDICATION 750 EACH FEED TUBE (08:58)
--- NOTE | 2023-08-11 10:28 | PM.PN ---
Subjective Subjective: on bipap Medications: Reviewed: Yes Vitals/I&O/Wt Last Vital Signs Temp 98.1 F 08/11/23 09:18 Pulse 109 H 08/11/23 09:18 Resp 19 H 08/11/23 09:18 BP 119/78 08/11/23 09:18 Pulse Ox 99 08/11/23 07:58 O2 Del Method BiPAP 08/11/23 07:58 O2 Flow Rate 3 08/10/23 15:00 FiO2 30 08/11/23 07:58 08/10/23 08/11/23 08/11/23 22:59 06:59 14:59 Intake Total 445.033 / 788.350 3246.333 / 2161.833 152.167 / 152.167 Output Total 60 / 85 300 / 385 Balance 385.033 / 905.365 8361.333 / 1776.833 152.167 / 152.167 Weight last 48 hrs Weight 106.9 kg Weight 106.9 kg Physical Exam Narrative: on BIPAP Urinary Catheter Management: Manzanares Latex: Cath Placed During This Visit: yes, but has since been removed by the nurse Reason for Continuing Indwelling Catheter: Accurate Measurement of Urinary Output in Critically Ill Patients Urinary Catheter Date of Insertion: 07/27/23 Urinary Catheter Time of Insertion: 19:45 Date Urinary Catheter Removed: 08/03/23 Time Urinary Catheter Discontinued: 14:30 Manzanares: Cath Placed During This Visit: no Reason for Continuing Indwelling Catheter: Accurate Measurement of Urinary Output in Critically Ill Patients Data 08/11/23 04:19 08/11/23 04:19 Micro: Microbiology 08/10/23 18:42 Occult Blood (FIT) - Final Stool - Stool Aspirate A&P Assessment and plan (1) CYNTHIA (acute kidney injury): Plan 1. Acute on chronic kidney disease stage III: Baseline creatinine is in the 1 range, now has severe CYNTHIA with a creatinine of 3.9 and volume overload, patient became anuric in the last 24 hours. No significant response to diuretics. s/p temporary HD catheter placement and initiated hemodialysis for volume management.sassess daily for HD needs , Currently on 4 L NC , s/p PC placement .HD today 2. Acute on chronic respiratory failure: Multifactorial, extubated , off pressors 3. Sepsis, secondary to pneumonia, on broad-spectrum antibiotics 4. A-fib 5. Morbid obesity Patient evaluated using audiovisual cart. Time spent 20 minutes. Attestations Medical Necessity Statement*: per [facility] Coding Level of Care Code Acute Code for Chg Fwd Diagnoses CYNTHIA (acute kidney injury) N17.9
[2023-08-11 11:13] LABS: Partial Thromboplastin Time 126.8 SECONDS (23.9-36.7)
[2023-08-11 11:57] LABS: Glucose Point of Care 124 mg/dL (70-110)
[2023-08-11] MEDS: epoetin alfa 1000 Unit/0.05 mL (ESRD) 20000 UNIT IVP (12:05)
[2023-08-11] MEDS: heparin, porcine 1,000 unit/mL INJ 10 mL 10000 UNIT INTRACATH (12:10)
--- NOTE | 2023-08-11 12:21 | PC.SLP ---
Pt undergoing dialysis. Will attempt to see patient tomorrow.
[2023-08-11 12:39] LABS: Glucose Point of Care 150 mg/dL (70-110)
--- NOTE | 2023-08-11 12:48 | PM.PN ---
Subjective Subjective: Patient is more lethargic today. She has been on BiPAP overnight and again this morning. Underwent dialysis this morning with removal of 3.5 L. By yesterday afternoon patient was sitting up in bed, able to tolerate trial of swallow function. She ate some peaches and modified consistency food. She was asking for food and had a conversation with her . She was able to sit up on side of the bed for a few minutes with therapy. Today she is more lethargic. Not conversant at this time. Does open her eyes to commands but not doing much else. Currently on BiPAP. Medications: Reviewed: Yes Vitals/I&O/Wt Last Vital Signs Temp 98.1 F 08/11/23 09:18 Pulse 88 08/11/23 11:34 Resp 20 H 08/11/23 11:34 BP 119/78 08/11/23 09:18 Pulse Ox 99 08/11/23 11:34 O2 Del Method BiPAP 08/11/23 11:34 O2 Flow Rate 3 08/10/23 15:00 FiO2 30 08/11/23 11:34 08/10/23 08/11/23 08/11/23 22:59 06:59 14:59 Intake Total 445.033 / 465.501 9183.333 / 2161.833 202.167 / 202.167 Output Total 60 / 85 300 / 385 Balance 385.033 / 058.147 8577.333 / 1776.833 202.167 / 202.167 Weight last 48 hrs Weight 106.9 kg Weight 106.9 kg Physical Exam Narrative: General: Lethargic, drowsy, extremely deconditioned not answering any questions, does not wake up. HEENT: PERRLA, pupils bilaterally equal and reactive, pallors not present Chest: Reduced breath sounds right lower lobe CVS: S1-S2 regular, no murmurs, no tachycardia, no gallops, no rubs Abdomen: Soft, nontender, no organomegaly, bowel sounds present Urinary Catheter Management: Manzanares Latex: Cath Placed During This Visit: yes, but has since been removed by the nurse Reason for Continuing Indwelling Catheter: Accurate Measurement of Urinary Output in Critically Ill Patients Urinary Catheter Date of Insertion: 07/27/23 Urinary Catheter Time of Insertion: 19:45 Date Urinary Catheter Removed: 08/03/23 Time Urinary Catheter Discontinued: 14:30 Manzanares: Cath Placed During This Visit: no Reason for Continuing Indwelling Catheter: Accurate Measurement of Urinary Output in Critically Ill Patients Data 08/11/23 04:19 08/11/23 04:19 Micro: Microbiology 08/10/23 18:42 Occult Blood (FIT) - Final Stool - Stool Aspirate A&P Assessment and plan (1) COPD (chronic obstructive pulmonary disease): Qualifiers: COPD type: unspecified COPD Qualified Code(s): J44.9 - Chronic obstructive pulmonary disease, unspecified (2) Acute and chronic respiratory failure with hypoxia: (3) PNA (pneumonia): (4) Pleural effusion: (5) CHF (congestive heart failure): acute on chronic with preserved EF Qualifiers: Heart failure type: diastolic Heart failure chronicity: acute on chronic Qualified Code(s): I50.33 - Acute on chronic diastolic (congestive) heart failure (6) Ventilator dependence: (7) Respiratory failure: (8) Acute respiratory failure with hypoxia and hypercarbia: (9) Respiratory acidosis: (10) Multiorgan failure: Plan 72-year-old lady with COPD, CHF, immunocompromised on Humira ,currently admitted to the hospital with acute on chronic hypoxic respiratory failure with multiple recent hospital admissions for the same reason.Recent chest x-rays and CAT scans have shows bilateral infiltrates which may represent persisting pneumonic infiltrates. Hospital course has been notable for ventilator dependent respiratory failure, with acute worsening on August 02, 2023. # Acute on chronic hypoxic respiratory failure, currently ventilator dependent. Likely multifactorial relating to persistent pneumonic infiltrates versus pulmonary edema versus acute aspiration event on August 02. Recent chest x-rays and CAT scans have shows bilateral infiltrates which have been persistent over the past month. Status post bronchoscopy on 08/06/2023. Pending respiratory cultures from [facility]. Pending PJP PCR, AFB culture and MTB PCR from August 06, 2023 evaluation ongoing for opportunistic pneumonia Thus far evaluation has been significant for elevated beta glucan at 123. While this remains nonspecific, given that patient is immunocompromised, has been on multiple steroids over the past month for COPD exacerbations, clinical suspicion for pneumocystis pneumonia. Patient started empiric Bactrim treatment at PJP dosing on July 31, 2023.Currently renally dosed at Bactrim 2 tabs p.o. daily. This has been complicated by development of acute renal failure, creatinine trending up to 2.3 and persisting hyponatremia with following sodium down to 126 today. Will discontinue Bactrim today given worsening renal numbers, following urine output. Change presumptive PJP coverage while waiting for the PCR results to atovaquone 750 mg p.o. twice daily. Added methylprednisolone 40 mg IV every 8 hours, again for presumptive PJP treatment while awaiting PCR results. Titrate down to every 12 hours. She is on Humira, evaluation ongoing to rule out TB. AFB smear negative x 1 from July 27, 2023, positive specimens unable to be sent out. Now collected from [facility] performed on August 06, 2023. MTB PCR pending from [facility]. Previously submitted from sputum was declined as it was not a satisfactory specimen. Negative QuantiFERON, also previously negative from 2019. Reports history of PPD positivity which were deemed to be false positives Negative serum Aspergillus galactomannan Negative histoplasma and Coccidioides serology. Patient denies any history of recent travel. She has noted to have bilateral pleural effusions additionally, thoracentesis was attempted on her most recent admission for diagnostic purposes, however there was insufficient fluid to proceed. b-d glucan weakly positive. negative respiratory viral panel. Echocardiogram from July 01, 2023 showed normal left ventricular size systolic function and wall thickness without regional wall motion abnormalities. LVEF of 65%. Aortic valve sclerosis without stenosis. s/p Zosyn 07/25-08/03; then 08/05-current s/p vancomycin 07/24-07/30; then 08/05-08/07 #Gram-positive bacteremia, on 08/02 identified as Staph hominis 1/2 cutures likely contaminant blooc cx 08/03 negative to date Discontinue vancomycin Respiratory and blood cultures negative for MRSA #Acute kidney injury, prerenal possibly ATN. Currently on dialysis Appreciate nephrology recommendations Discontinue Bactrim CBC without any peripheral eosinophils, no rash, lower possibility of dress syndrome #Acute on chronic diasotlic HF Previously on Bumex, now on dialysis unclear at this time if dialysis would be needed long-term or not #Immunocompromised, on adalimumab, methrotrexate outpatient #A-fib with RVR Currently on amiodarone infusion Discontinue infusion. Changed to amiodarone 400 mg via NG tube not on a/c due to history of bleeding #Acute on chronic anemia Hemoglobin 7.1. Trend closely. Labs do not appear to have been drawn this morning for CBC. Unclear why. ? Protonix IV twice daily to continue ? Full Code DVT PPX: SCDs. GI ppx: protonix 40 IV BID Prognosis is poor. Nursing staff and updated bedside in a lot of detail. All questions were answered to his satisfaction. Plan for today 08/08: Extubated yesterday. ABG performed this morning 7.32/52.2/76.3. Settings adjusted. Not significantly hypercapnic to explain her visit persisting lethargy at this time. Check COVID antigen. Place NGT to administer oral meds. Start TPN. Place PICC line as anticipated prolonged hospitalization with need for continuous IV access. Respiratory cultures with yeast. Patient adequately covered with fluconazole. Suspect this is related to thrush. Still pending PCP PCR and MTB PCR. Will follow-up pending studies. Discontinue piperacillin/tazobactam over the next 24 hours if cultures remain unrevealing for other organisms. Continue IV steroids. Plan for today: 08/09/2023. Slightly more awake today compared to yesterday. Developing tachycardia with heart rate up to 124. Resume home dose of metoprolol. Transfuse 1 unit packed red blood cell. Target hemoglobin of 8 patient with A-fib and persistent tachycardia. Developing stage I pressure injury. Started zinc oxide. Frequent repositioning. Discontinue piperacillin/tazobactam. Wean off BiPAP to nasal cannula today. Depending on how well patient is able to sustain her breathing further disposition plans and decisions regarding trach/PEG. TPN was unable to be started yesterday. Orders placed again today. PT OT once more awake Plan for today: 08/10/2023. Patient is more alert and awake today. She is able to maintain her airway. On supplemental oxygen at 3 L/min. Central line has been discontinued. She was intended to get a permacath placement today, however she had a few sips of different consistency foods as part of a swallow evaluation therefore surgery had to be canceled. Will reattempt tomorrow. Continue participating with his PT OT. Started on a modified diet versus speech therapy evaluation. No HD today per renal. Creatinine and other labs are stable. Microbiology results pending. Add as needed IV hydralazine for hypertension. Plan for today: 08/11/2023. Patient is lethargic today. She does not participate in conversation. She opens her eyes to calling name but not doing much else. She has been on BiPAP for much of the night. Accu-Cheks are within range. Received dialysis this morning with removal of 3.5 L of fluid. Plan to give her a break from BiPAP today. Transition to supplemental O2 at this time. Hold duloxetine. Patient typically takes 60 mg at home. Will dose adjusted for current renal function and dialysis. Typically not a dialyzable medication. If needs to be resumed, would resume at half the dose of 30 mg daily. She is now of piperacillin/tazobactam. Remains afebrile hemodynamically stable. Continue fluconazole until tomorrow to complete 10 days for oropharyngeal candidiasis and intercrural candidiasis. Reduce steroids from methylprednisolone 40 mg IV every 12 hours to prednisone 40 p.o. daily. Resume metoprolol at a reduced dose of 25 mg p.o. twice daily. If blood pressure and heart rate permit would titrate up to her previous dosing of 50 mg p.o. twice daily. Discontinue TPN. Once more awake attempt dysphagia 5 diet as recommended per speech therapy recommendations yesterday. Unfortunately not able to get permacath until Sunday (today is Sunday). N.p.o. starting midnight on Sunday for the same. If able to consistently stay awake enough to tolerate p.o. intake, plan to discontinue NG tube. Remove Manzanares catheter to minimize risk for CAUTI. With the initiation of dialysis urine output is not being strictly monitored anymore. All updates discussed with at bedside. Continue heparin drip for A-fib. May transition to DOACs at discharge. To have a risk-benefit discussion with tomorrow. Previously patient has not been on anticoagulation due to high fall risk for review of past notes. Attestations Medical Necessity Statement*: Continued admission, currently on a heparin drip. Needs permacath placement on Sunday. Continued assessment of mental status. DC TPN today. Assess for swallowing function and consistency with p.o. intake. Coding Level of Care Code Acute Code for Chg Fwd Diagnoses Chronic obstructive pulmonary disease, unspecified COPD type J44.9 COPD type: unspecified COPD Acute and chronic respiratory failure with hypoxia J96.21 PNA (pneumonia) J18.9 Pleural effusion J90 Acute on chronic diastolic congestive heart failure I50.33 Heart failure type: diastolic Heart failure chronicity: acute on chronic Ventilator dependence Z99.11 Respiratory failure J96.90 Acute respiratory failure with hypoxia and hypercarbia J96.01; J96.02 Respiratory acidosis E87.29 Multiorgan failure
[2023-08-11] MEDS: lidocaine 5% Patch 1 PATCH TOPICAL (13:44)
--- NOTE | 2023-08-11 14:19 | P.PN_ITS ---
Subjective 2 Subjective: -Patient is getting hemodialysis today onelia parra -She is on BiPAP 30% FiO2 -Will reassess after dialysis and-take o ff BiPAP during daytime -Overall patient is extremely deconditio xochitl and needed aggressive physical therapy -Patient was not on anticoagulation for chronic A-fib given her high risk for falls as outpatient; her stool occult blood was negative yesterday-will start her on heparin drip given her underlying A-fib and DVT/PE prophylaxis -Will decide about outpatient anticoagul ation after permacath placement. -Slowly taper off TPN and encouraged to take more oral feeds and advance as tolerated -Other labs and imaging reviewed Medications: Reviewed: Yes Vitals/I&O/Wt Last Vital Signs Temp 97.0 F L 08/11/23 13:23 Pulse 84 08/11/23 13:23 Resp 15 08/11/23 13:23 BP 139/69 08/11/23 13:23 Pulse Ox 99 08/11/23 11:34 O2 Del Method BiPAP 08/11/23 11:34 O2 Flow Rate 3 08/10/23 15:00 FiO2 30 08/11/23 11:34 08/10/23 08/11/23 08/11/23 22:59 06:59 14:59 Intake Total 445.033 / 631.181 9677.333 / 2161.833 502.167 / 502.167 Output Total 60 / 85 300 / 385 3800 / 3800 Balance 385.033 / 491.695 9290.333 / 1776.833 -3297.833 / -3297.833 Weight last 48 hrs Weight 240 lb 11.916 oz Weight 235 lb 10.786 oz Physical Exam 2 Narrative: General: Appears extremely drowsy, weak not in acute respiratory distress HEENT: conj clear, EOMI, PERRL, mmm, Neck: supple, no meningismus Heme: no cervical LAP Respiratory: Inspection: No visible deformity of the chest wall Palpation: Trachea is mildly deviated to the right, bilateral symmetric expansion Percussion: Bilateral tympanic percussion note both anterior and posteriorly Auscultation: Diffuse crackles Cardiovascular: rrr, nl s1s2, no mrg Abdomen: soft, nt, nd, no r/g, bs+ Extremities: pulses +, 1+ pitting pedal edema, no c/c : no CVA tenderness Skin: intact, no rash MSK: no back or neck pain Neurologic: grossly intact Urinary Catheter Management: Manzanares Latex: Cath Placed During This Visit: yes, but has since been removed by the nurse Reason for Continuing Indwelling Catheter: Accurate Measurement of Urinary Output in Critically Ill Patients Urinary Catheter Date of Insertion: 07/27/23 Urinary Catheter Time of Insertion: 19:45 Date Urinary Catheter Removed: 08/03/23 Time Urinary Catheter Discontinued: 14:30 Manzanares: Cath Placed During This Visit: no Reason for Continuing Indwelling Catheter: Accurate Measurement of Urinary Output in Critically Ill Patients Data 08/11/23 04:19 08/11/23 04:19 Other Labs: Radiology Impressions Chest CTA 08/02/23 17:42 IMPRESSION: 1. Negative for pulmonary embolus. 2. Endotracheal tube and enteric tube seen in place. 3. Right-sided central venous catheter. 4. Large bilateral pleural effusions. 5. Several enlarged mediastinal lymph nodes measuring up to 17 mm, nonspecific. 6. Cardiomegaly. 7. Coronary artery atherosclerotic calcifications. 8. Cirrhotic liver. 9. Hepatic steatosis. 10. Cholecystectomy. 11. Bilateral right greater than left airspace infiltrates. 12. Left kidney 16 mm exophytic probable hyperdense cyst, nonemergent ultrasound could further characterize this. 13. Main pulmonary artery is somewhat prominent which can be a finding of pulmonary artery hypertension. COMMENTS: Consistent with the [employer]'s Incidental Findings Committee white paper (J Am Cesar Radiol 2018): Any incidental renal lesion less than 1 cm or classified as too small to characterize, or any incidental cystic renal lesion characterized as simple-appearing, is likely benign. No follow-up imaging is recommended for these lesions per consensus recommendations based on imaging criteria. Abdomen X-Ray 08/04/23 14:43 IMPRESSION: Air-filled structure positioned in the midline lower abdomen may represent a low-lying stomach. Dilated bowel loop/obstruction cannot be excluded. Laboratory Results WBC 7.03 10^3/uL (3.29-11.43) 08/11/23 04:19 RBC 3.28 10^6/uL (3.85-5.65) L 08/11/23 04:19 Hgb 8.70 g/dL (11.27-16.99) L 08/11/23 04:19 Hct 28.5 % (36-47) L 08/11/23 04:19 MCV 86.9 fl (85-98) 08/11/23 04:19 MCH 26.5 pg (27-33) L 08/11/23 04:19 MCHC 30.5 g/dL (30-55) 08/11/23 04:19 RDW 17.1 % (12.1-15.1) H 08/11/23 04:19 Plt Count 154 10^3/cmm (157-399) L 08/11/23 04:19 MPV 10.0 fL (7.4-10.4) 08/11/23 04:19 Neut % (Auto) 91.9 % 08/11/23 04:19 Lymph % (Auto) 2.1 % 08/11/23 04:19 [place] % (Auto) 4.6 % 08/11/23 04:19 Eos % (Auto) 0.0 % 08/11/23 04:19 Baso % (Auto) 0.1 % 08/11/23 04:19 Neut # (Auto) 6.46 10^3/uL (1.8-7.7) 08/11/23 04:19 Lymph # (Auto) 0.2 10^3/uL (0.8-4.8) L 08/11/23 04:19 [place] # (Auto) 0.3 10^3/uL (0.2-0.9) 08/11/23 04:19 Eos # (Auto) 0.0 10^3/uL (0.0-0.8) 08/11/23 04:19 Baso # (Auto) 0.0 10^3/uL (0.0-0.1) 08/11/23 04:19 Nucleated RBC % (auto) 0.7 % 08/11/23 04:19 Nucleated RBCs # 0.1 /100WBC 08/11/23 04:19 PT 14.70 SECONDS (12.1-14.9) 08/04/23 04:55 INR 1.11 (0.8-1.2) 08/04/23 04:55 APTT 126.8 SECONDS (23.9-36.7) H 08/11/23 09:46 Fibrinogen 556 mg/dL (174-498) H 08/02/23 17:51 Fibrin Degrad Products <5 mcg/mL (LESS THAN 5) 08/02/23 17:58 D-Dimer 0.74 ug/mLFEU (0-0.59) H 08/02/23 17:51 Specimen Type Arterial 08/08/23 16:15 Sample Site Brachial, left 08/08/23 16:15 ABG pH 7.35 (7.35-7.45) 08/08/23 16:15 ABG pCO2 46.2 mmHg (35-45) H 08/08/23 16:15 ABG pO2 68.6 mmHg (80.0-100.0) L 08/08/23 16:15 ABG PO2/FiO2 Ratio 0 08/08/23 16:15 ABG HCO3 25.3 mmol/L (22-26) 08/08/23 16:15 ABG O2 Saturation 94.2 08/08/23 08:35 ABG Base Excess -0.5 mmol/L (-2.0-2.0) 08/08/23 16:15 Memo Test Pos 08/08/23 16:15 A-a O2 Gradient 10.2 mmHg (5-10) H 08/08/23 08:35 Hematocrit 22.8 % (37-47) L 08/08/23 16:15 Hgb O2 Saturation 91.2 % (95-100) L 08/08/23 08:35 Carboxyhemoglobin 1.7 %THgb (0.4-20.1) 08/08/23 08:35 Methemoglobin 1.5 % (0.4-1.5) 08/08/23 08:35 Total Hemoglobin 7.7 g/dL (12-16) L 08/08/23 08:35 Sodium 130.0 mmol/L (131-143) L 08/08/23 08:35 Potassium 3.6 mmol/L (3.5-5.0) 08/08/23 08:35 Glucose 122.0 mg/dL (70-115) H 08/08/23 08:35 Ionized Calcium 1.2 mmol/L (1.1-1.4) 08/08/23 08:35 O2 Delivery Device Bipap 08/08/23 16:15 O2 Liters/Min 5.0 % 07/25/23 15:12 FiO2 30.0 % 08/08/23 16:15 Tidal Volume 0.40 08/07/23 04:33 PEEP 8.0 cmH20 08/04/23 14:50 Psychologist Developmental ID Gd 08/08/23 16:15 Sodium 130 mmol/L (136-145) L 08/11/23 04:19 Potassium 3.5 mmol/L (3.5-5.1) 08/11/23 04:19 Chloride 92 mmol/L (98-107) L 08/11/23 04:19 Carbon Dioxide 24 mmol/L (22-29) 08/11/23 04:19 Anion Gap 17.5 (5-19) 08/11/23 04:19 BUN 49 mg/dL (8-23) H 08/11/23 04:19 Creatinine 3.4 mg/dL (0.5-0.9) H 08/11/23 04:19 GFR Calculation Not Reportable 08/11/23 04:19 Glucose 356 mg/dL (65-115) H 08/11/23 04:19 POC Glucose 150 mg/dL (70-110) H 08/11/23 12:35 Calculated Osmolality 297 mOsm/kg (285-295) H 08/11/23 04:19 Lactate 3.6 mmol/L (0.5-2.2) H 08/04/23 15:18 Calcium 8.5 mg/dL (8.5-10.5) 08/11/23 04:19 Phosphorus 5.9 mg/dL (2.5-4.5) H 08/05/23 03:45 Magnesium 2.0 mg/dL (1.7-2.3) 08/10/23 04:01 Iron 50 ug/dL (37-145) 08/04/23 04:45 TIBC 273 mcg/dl 08/04/23 04:45 % Saturation 18.3 % (20-50) L 08/04/23 04:45 Unsat Iron Binding 223 ug/dL (112-347) 08/04/23 04:45 Ferritin 110 ng/mL (15-150) 08/04/23 04:45 Total Bilirubin 0.2 mg/dL (0.15-1.2) 08/11/23 04:19 AST 33 U/L (0-32) H 08/11/23 04:19 ALT 28 U/L (0-33) 08/11/23 04:19 Alkaline Phosphatase 84 U/L (35-105) 08/11/23 04:19 Troponin T Baseline 43 ng/L (0-10) H 08/02/23 17:51 Troponin T 120 Minute 47.08 ng/L (0-10) H 08/02/23 20:05 Delta Troponin T 4.08 ABS# (0-10) 08/02/23 20:05 Troponin T Hi Sens 6Hr 47.70 ng/L (0-10) H 08/02/23 23:47 Troponin T Hi Sens 6Hr Delta 4.70 ng/L (0-12) 08/02/23 23:47 NT-Pro-B Natriuret Pep 4242 pg/mL (0-125) H 08/02/23 17:51 Total Protein 5.7 g/dL (6.6-8.7) L 08/11/23 04:19 Albumin 3.0 g/dL (3.5-5.2) L 08/11/23 04:19 Globulin 2.7 g/dL (1.3-4.6) 08/11/23 04:19 Vitamin B12 799 pg/mL (232-1245) 08/04/23 04:45 25-OH Vitamin D Total 35 ng/mL (30-100) 08/04/23 04:45 Procalcitonin 0.47 ng/mL (0-0.5) 08/04/23 04:45 Urine Color Dark yellow (Yellow) 07/25/23 11:54 Urine Appearance Hazy (CLEAR) A 07/25/23 11:54 Urine pH 5 (5-7) 07/25/23 11:54 Ur Specific [place] 1.020 (1.005-1.030) 07/25/23 11:54 Urine Protein Trace (Negative) 07/25/23 11:54 Urine Glucose (UA) Norm (Normal) 07/25/23 11:54 Urine Ketones Negative (Negative) 07/25/23 11:54 Urine Blood Neg (Negative) 07/25/23 11:54 Urine Nitrate Negative (Negative) 07/25/23 11:54 Urine Bilirubin Neg (Negative) 07/25/23 11:54 Urine Urobilinogen Norm mg/dL (Negative) 07/25/23 11:54 Ur Leukocyte Esterase Negative (Negative) 07/25/23 11:54 Urine RBC 0-4 /hpf (0-2) H 07/25/23 11:54 Urine WBC 15-25 /hpf (0-5) H 07/25/23 11:54 Ur Squamous Epith Cells 10-15 /hpf (0-5) H 07/25/23 11:54 Ur Transition Epith Cell 5-10 /hpf 07/25/23 11:54 Amorphous Sediment Not Reportable 07/25/23 11:54 Urine Bacteria Trace /hpf (NONE) 07/25/23 11:54 Hyaline Casts 5-10 /lpf H 07/25/23 11:54 Urine Mucus Trace /hpf 07/25/23 11:54 Bronch Specimen Source Right lower lobe 08/06/23 07:50 Bronchial Fluid Color Slight pink 08/06/23 07:50 Bronchial Fluid Appearance Hazy (CLEAR) 08/06/23 07:50 Bronch Cells Counted 200 08/06/23 07:50 Bronchial Neutrophils 29.00 % (0.9-2.3) H 08/06/23 07:50 Bronchial Lymphocytes 3.00 % (10.71-12.91) L 08/06/23 07:50 Bronchial Eosinophils 1.00 % (0.13-0.25) H 08/06/23 07:50 Bronchial Macrophages 67.00 % (83.6-86.8) L 08/06/23 07:50 Bronchial Diff Comment Yes 08/06/23 07:50 Vancomycin Trough 12.0 ug/mL (10-15) 07/28/23 14:08 Digoxin 0.6 ng/mL (0.6-1.2) 08/04/23 04:45 C. difficile Tox (PCR) Not detected (NOT DETECTED) 08/09/23 14:35 Coccidioides immitis CF <1:2 07/26/23 08:55 Coronavirus 229E (PCR) Not detected (NOT DETECT) 07/25/23 15:47 Hep Bs Antigen Non-reactive (Nonreactive) 08/05/23 03:45 Hep Bs Antibody < 3.5 (11.5-1000) L 08/05/23 03:45 Histo Mycel H Protein Negative 07/26/23 08:55 Histo Mycel M Protein Negative 07/26/23 08:55 U Histop Galact Ag Qnt <0.2 ng/mL 07/25/23 11:54 Influenza Type A Ag negative (Negative) 07/25/23 15:47 Influenza Type B Ag negative (Negative) 07/25/23 15:47 Myco Comp PCR Spec Srce Sputum 08/06/23 11:00 Pneumocystis Source Right lower lobe 08/06/23 07:50 Pneumocyst jirovecii PCR Not detected 08/06/23 07:50 Aspergillus Source Whole blood 08/06/23 03:36 Aspergillus Ag (EIA) Not detected 08/06/23 07:50 Aspergillus sp (PCR) Not detected 08/06/23 03:36 A. fumigatus (PCR) Not detected 08/06/23 03:36 A. galactomannan Ag EIA Not detected 07/26/23 08:55 A. galactomannan Ag Idx <0.50 08/06/23 07:50 A. terreus (PCR) Not detected 08/06/23 03:36 SARS-CoV-2 (PCR) Not detected (NOT DETECT) 07/25/23 15:47 SARS-CoV-2 Ag (Rapid) negative (Negative) 08/08/23 14:15 MRSA (PCR) Not detected (NOT DETECTED) 08/04/23 15:18 TB (QFT) Gold In Tube Negative (NEGATIVE) 07/26/23 08:55 TB Test (QFT) Nil 0.04 IU/mL 07/26/23 08:55 TB Test (QFT) Mitogen 8.86 IU/mL 07/26/23 08:55 TB Test Mitogen - Nil 0.00 IU/mL 07/26/23 08:55 TB Test TB -Nil <0.00 IU/mL 07/26/23 08:55 Beta-(1,3)-D-Glucan 123 pg/mL H 07/26/23 08:55 B-(1,3)-D-Glucan Intrp Positive A 07/26/23 08:55 M.tuberculosis Cmplx PCR Not detected 08/06/23 11:00 Misc Test Reference Cancelled 07/30/23 11:20 Blood Type O Positive 08/09/23 12:31 Rho(D) Type Rh positive 08/09/23 12:31 Antibody Screen Negative 08/09/23 12:31 Crossmatch See Detail 08/09/23 12:31 Micro: Microbiology 08/10/23 18:42 Occult Blood (FIT) - Final Stool - Stool Aspirate A&P Assessment and plan (1) Acute respiratory failure with hypoxia and hypercarbia: (2) Ventilator dependence: (3) CHF (congestive heart failure): Qualifiers: Heart failure type: diastolic Heart failure chronicity: acute on chronic Qualified Code(s): I50.33 - Acute on chronic diastolic (congestive) heart failure (4) Seronegative rheumatoid arthritis of both hands: (5) High risk medication use: (6) Morbid obesity: (7) Chronic atrial fibrillation: (8) CYNTHIA (acute kidney injury): Plan # Acute hypoxic/hypercapnic respiratory failure in patient with underlying COPD, diastolic heart failure, chronic bilateral pleural effusions, morbid obesity # History of rheumatoid arthritis on Humira and immunosuppressive medications- rule out underlying opportunistic infections # CYNTHIA on CKD-currently on Levophed # Chronic E-hbw-ddsryimcp rate controlled-started on amiodarone drip # Hypokalemia and hypomagnesemia-supplement and monitor # Large bilateral pleural effusions-Improved with dialysis #Sputum cultures and urine cultures positive for Amber albicans-patient is currently on fluconazole # Severe deconditioning -Successfully extubated to BiPAP and currently on 30% FiO2 -Significant improvement in mentation-but she is extremely deconditioned-need aggressive physical therapy and rehab -CTA 08/02/2023-ruled out PE; large bilateral pleural effusions; very difficult to do ultrasound-guided thoracentesis given her body habitus; however she was started on hemodialysis -Off pressors -Bronchoscopy 10/07/2022-revealed copious amount of secretions blocking right lower lobe subsegments-they were suctioned out and BAL sent for various studies - Sugars are moderately controlled-On insulin scale coverage -workup so far negative for respiratory viral panel, COVID-19,; Given her immunosuppression for rheumatoid arthritis-extensive workup was sent -Amiodarone IV switched to oral amiodarone; she is started on heparin drip for anticoagulation; she was not on oral anticoagulation as outpatient due to high risk for falls -Currently she is awaiting permacath placement-will decide about outpatient oral anticoagulation after permacath placement -Patient is also receiving TPN-we can taper down TPN and start oral feeds and advance as tolerated - So for beta D glucan weekly positive-PCP PCR, histoplasma antigen, coccidioidomycosis--negative; on tapering dose of steroids-on atovaquone prophylaxis - She is in airborne isolation-sputum for MTB-is pending; TB QuantiFERON is negative -Hemodialysis as per renal team ICU CHECKLIST: Problem list updated Verbal orders reviewed and signed Code Status: Full code Disposition: ICU Critically ill: Yes MD discussed with: Hospitalist, RN, RT Prognosis: Guarded Family: updated about medical condition, plan of management, prognosis at bedside Analgesia: N/A Glycemic Control: Scale coverage Nutrition: Taper TPN and start on oral feeds with assistance and advance as tolerated Restraint Renewal (within 24 hrs): Yes Ulcer Prophylaxis: PPI Chemical Thromboprophylaxis: Prophylaxis: Heparin Mechanical Thromboprophylaxis: SCD Need for Central line: Yes for pressors Need for Manzanares catheter: Yes for urine output monitoring Attestations 2 Medical Necessity Statement*: Continued admission, currently on a heparin drip. Needs permacath placement on Sunday. Continued assessment of mental status. DC TPN today. Assess for swallowing function and consistency with p.o. intake. Critical Care Time: The high probability of a clinically significant, sudden or life threatening deterioration of the patient's [neurologic/pulmonary/cardiac] system(s) required my full and direct attention, intervention and personal management. The critical care time is as shown. This time is in addition to time spent performing any reported procedures but includes the following: [x] Data and vital sign review and interpretation [x] Patient assessment, examination and intervention [x] Documentation [x] Medication orders and management Critical Care Time (min): 48 Coding Level of Care Code Acute Code for [facility] Fwd Diagnoses Acute respiratory failure with hypoxia and hypercarbia J96.01; J96.02 Ventilator dependence Z99.11 Acute on chronic diastolic congestive heart failure I50.33 Heart failure type: diastolic Heart failure chronicity: acute on chronic Seronegative rheumatoid arthritis of both hands M06.041; M06.042 High risk medication use Z79.899 Morbid obesity E66.01 Chronic atrial fibrillation I48.20 CYNTHIA (acute kidney injury) N17.9 Time Spent (min) 48
[2023-08-11 16:28] LABS: Partial Thromboplastin Time 108.2 SECONDS (23.9-36.7)
[2023-08-11 17:28] LABS: Glucose Point of Care 178 mg/dL (70-110)
[2023-08-11] MEDS: amiodarone 200 mg Tablet 400 MG PO (17:53)
[2023-08-11] MEDS: fluconazole premix 100 MG in empty flexible container 1 EACH 50 MG IV (17:53)
[2023-08-11] MEDS: nystatin powder 15 gm Btl 1 APPLIC TOPICAL (17:56)
[2023-08-11] MEDS: heparin drip 25,000 UNIT/500 ML PREMIX 19 UNIT IV (18:01)
--- NOTE | 2023-08-11 19:35 | PC.NURSE ---
Shift summary: Pt remains resting in bed throughout the shift. She is more alert today. TPN stopped. Pt now on dysphagia diet level 5 at dinner, she ate the entire meal. NG tube removed at end of shift. She used 3lpm/NC for nearly the entire shift. She is still too weak to feed herself and her voice is whispery. When sitting up in the bed she does lean to the right and her head tilts that direction further. Due to her anuria/oliguria physician made decision to have romero removed, It was removed. The excoriated area on the front perineal area has healed but skin still peeling. Her bottom has peeling too, the pressure injury is healing. No urine noted this shift. Fecal tube remains in palce and draining. Some leakage noted earlier this shift, pericare provided.
[2023-08-11 22:31] LABS: Partial Thromboplastin Time 45.7 SECONDS (23.9-36.7)
[2023-08-11 23:24] LABS: Glucose Point of Care 220 mg/dL (70-110)
[2023-08-12] VITALS (40 sets, daily range): BP systolic 98–173; BP diastolic 47–150; PULSE 79–145; RESP 16–34; TEMP 36.4–36.8; O2SAT 91–100
[2023-08-12 05:26] LABS: Glucose Point of Care 113 mg/dL (70-110)
[2023-08-12 05:53] LABS: Basophils % 0.3 %; Eosinophils % 0.4 %; Lymphocytes % 12.2 %; Mean Corpuscular HGB Conc 31.4 g/dL (30-55); Mean Corpuscular Hemoglobin 27.3 pg (27-33); Mean Platelet Volume 9.6 fL (7.4-10.4); Monocytes # 0.7 10^3/uL (0.2-0.9); Monocytes % 8.5 %; Neutrophils # 6.07 10^3/uL (1.8-7.7); Neutrophils % 77.2 %; Nucleated Red Blood Cells # 0.1 /100WBC; Nucleated Red Blood Cells % 0.9 %; Platelet Count 149 10^3/cmm (157-399); Red Blood Count 3.22 10^6/uL (3.85-5.65); Red Cell Distribution Width 17.4 % (12.1-15.1); White Blood Count 7.86 10^3/uL (3.29-11.43)
[2023-08-12 06:16] LABS: Anion Gap 13.6 (5-19); Blood Urea Nitrogen 36 mg/dL (8-23); Carbon Dioxide 27 mmol/L (22-29); Chloride 97 mmol/L (98-107); Potassium 3.6 mmol/L (3.5-5.1); Sodium 134 mmol/L (136-145)
[2023-08-12 06:17] LABS: Alanine Aminotransferase 27 U/L (0-33); Alkaline Phosphatase 84 U/L (35-105); Aspartate Amino Transferase 25 U/L (0-32); Calcium 8.7 mg/dL (8.5-10.5); Globulin 2.6 g/dL (1.3-4.6); Glucose 138 mg/dL (65-115); Osmolality Calculated 289 mOsm/kg (285-295); Partial Thromboplastin Time 66.1 SECONDS (23.9-36.7); Total Bilirubin 0.3 mg/dL (0.15-1.2); Total Protein 5.6 g/dL (6.6-8.7)
[2023-08-12] MEDS: levothyroxine 150 mcg Tablet PO (06:20)
[2023-08-12] MEDS: pyridostigmine 60 mg Tablet PO (06:20)
[2023-08-12] MEDS: pantoprazole 40 mg SDV IVP ×2 (08:18→18:27)
[2023-08-12] MEDS: amiodarone 200 mg Tablet 400 MG PO ×2 (08:18→18:27)
[2023-08-12] MEDS: predniSONE 20 mg Tablet 40 MG PO (08:19)
[2023-08-12] MEDS: ipratropium-albuterol 3 mL Neb INHALATION ×4 (08:30→20:07)
[2023-08-12] MEDS: nystatin powder 15 gm Btl 1 APPLIC TOPICAL (09:07)
[2023-08-12] MEDS: chlorhexidine gluconate 0.12% Btl 473 mL 15 ML MUCOUS MEM ×2 (09:07→18:27)
[2023-08-12] MEDS: lidocaine 5% Patch 1 PATCH TOPICAL (09:08)
--- NOTE | 2023-08-12 10:31 | P.PN_ITS ---
Subjective 2 Subjective: - Seen patient at bedside today -She had hemodialysis yesterday and 3 L fluid removed -She was on BiPAP overnight-today sandeep miller she was on 3 L nasal cannula -Significant improvement in her mentatio n -She was asking for pudding; she ate her dinner yesterday as per nurse taking care. -Off TPN, off pressors, -Patient to get physical therapy today -On heparin drip for A-fib RVR-she is aw aiting permacath placement tomorrow -On fluconazole for Amber in sputum an d urine cultures Medications: Reviewed: Yes Vitals/I&O/Wt Last Vital Signs Temp 98.2 F 08/11/23 22:00 Pulse 104 H 08/12/23 08:30 Resp 22 H 08/12/23 08:30 BP 120/90 08/12/23 06:00 Pulse Ox 98 08/12/23 08:30 O2 Del Method Nasal Cannula 08/12/23 08:30 O2 Flow Rate 3 08/12/23 08:30 FiO2 30 08/12/23 02:54 08/11/23 08/12/23 08/12/23 22:59 06:59 14:59 Intake Total 842.3 / 1344.467 247.80 / 1592.267 Output Total 0 / 3860 Balance 842.3 / -2515.533 247.80 / -2267.733 Weight last 48 hrs Weight 234 lb 4.8 oz Weight 240 lb 11.916 oz Weight 235 lb 10.786 oz Physical Exam 2 Narrative: General: Alert oriented and following commands, asking for food HEENT: conj clear, EOMI, PERRL, mmm, Neck: supple, no meningismus Heme: no cervical LAP Respiratory: Inspection: No visible deformity of the chest wall Palpation: Trachea is mildly deviated to the right, bilateral symmetric expansion Percussion: Bilateral tympanic percussion note both anterior and posteriorly Auscultation: Improved crackles Cardiovascular: rrr, nl s1s2, no mrg Abdomen: soft, nt, nd, no r/g, bs+ Extremities: pulses +, 1+ pitting pedal edema, no c/c : no CVA tenderness Skin: intact, no rash MSK: no back or neck pain Neurologic: grossly intact Urinary Catheter Management: Manzanares Latex: Cath Placed During This Visit: yes, but has since been removed by the nurse Reason for Continuing Indwelling Catheter: Accurate Measurement of Urinary Output in Critically Ill Patients Urinary Catheter Date of Insertion: 07/27/23 Urinary Catheter Time of Insertion: 19:45 Date Urinary Catheter Removed: 08/03/23 Time Urinary Catheter Discontinued: 14:30 Manzanares: Cath Placed During This Visit: yes, but has since been removed by the nurse Reason for Continuing Indwelling Catheter: Accurate Measurement of Urinary Output in Critically Ill Patients Date Urinary Catheter Removed: 08/11/23 Time Urinary Catheter Discontinued: 14:00 Data 08/12/23 05:17 08/12/23 05:17 Other Labs: Radiology Impressions Chest CTA 08/02/23 17:42 IMPRESSION: 1. Negative for pulmonary embolus. 2. Endotracheal tube and enteric tube seen in place. 3. Right-sided central venous catheter. 4. Large bilateral pleural effusions. 5. Several enlarged mediastinal lymph nodes measuring up to 17 mm, nonspecific. 6. Cardiomegaly. 7. Coronary artery atherosclerotic calcifications. 8. Cirrhotic liver. 9. Hepatic steatosis. 10. Cholecystectomy. 11. Bilateral right greater than left airspace infiltrates. 12. Left kidney 16 mm exophytic probable hyperdense cyst, nonemergent ultrasound could further characterize this. 13. Main pulmonary artery is somewhat prominent which can be a finding of pulmonary artery hypertension. COMMENTS: Consistent with the [employer]'s Incidental Findings Committee white paper (J Am Cesar Radiol 2018): Any incidental renal lesion less than 1 cm or classified as too small to characterize, or any incidental cystic renal lesion characterized as simple-appearing, is likely benign. No follow-up imaging is recommended for these lesions per consensus recommendations based on imaging criteria. Abdomen X-Ray 08/04/23 14:43 IMPRESSION: Air-filled structure positioned in the midline lower abdomen may represent a low-lying stomach. Dilated bowel loop/obstruction cannot be excluded. Laboratory Results WBC 7.86 10^3/uL (3.29-11.43) 08/12/23 05:17 RBC 3.22 10^6/uL (3.85-5.65) L 08/12/23 05:17 Hgb 8.80 g/dL (11.27-16.99) L 08/12/23 05:17 Hct 28.0 % (36-47) L 08/12/23 05:17 MCV 87.0 fl (85-98) 08/12/23 05:17 MCH 27.3 pg (27-33) 08/12/23 05:17 MCHC 31.4 g/dL (30-55) 08/12/23 05:17 RDW 17.4 % (12.1-15.1) H 08/12/23 05:17 Plt Count 149 10^3/cmm (157-399) L 08/12/23 05:17 MPV 9.6 fL (7.4-10.4) 08/12/23 05:17 Neut % (Auto) 77.2 % 08/12/23 05:17 Lymph % (Auto) 12.2 % 08/12/23 05:17 Andrews % (Auto) 8.5 % 08/12/23 05:17 Eos % (Auto) 0.4 % 08/12/23 05:17 Baso % (Auto) 0.3 % 08/12/23 05:17 Neut # (Auto) 6.07 10^3/uL (1.8-7.7) 08/12/23 05:17 Lymph # (Auto) 1.0 10^3/uL (0.8-4.8) 08/12/23 05:17 Andrews # (Auto) 0.7 10^3/uL (0.2-0.9) 08/12/23 05:17 Eos # (Auto) 0.0 10^3/uL (0.0-0.8) 08/12/23 05:17 Baso # (Auto) 0.0 10^3/uL (0.0-0.1) 08/12/23 05:17 Nucleated RBC % (auto) 0.9 % 08/12/23 05:17 Nucleated RBCs # 0.1 /100WBC 08/12/23 05:17 PT 14.70 SECONDS (12.1-14.9) 08/04/23 04:55 INR 1.11 (0.8-1.2) 08/04/23 04:55 APTT 66.1 SECONDS (23.9-36.7) H 08/12/23 05:17 Fibrinogen 556 mg/dL (174-498) H 08/02/23 17:51 Fibrin Degrad Products <5 mcg/mL (LESS THAN 5) 08/02/23 17:58 D-Dimer 0.74 ug/mLFEU (0-0.59) H 08/02/23 17:51 Specimen Type Arterial 08/08/23 16:15 Sample Site Brachial, left 08/08/23 16:15 ABG pH 7.35 (7.35-7.45) 08/08/23 16:15 ABG pCO2 46.2 mmHg (35-45) H 08/08/23 16:15 ABG pO2 68.6 mmHg (80.0-100.0) L 08/08/23 16:15 ABG PO2/FiO2 Ratio 0 08/08/23 16:15 ABG HCO3 25.3 mmol/L (22-26) 08/08/23 16:15 ABG O2 Saturation 94.2 08/08/23 08:35 ABG Base Excess -0.5 mmol/L (-2.0-2.0) 08/08/23 16:15 Memo Test Pos 08/08/23 16:15 A-a O2 Gradient 10.2 mmHg (5-10) H 08/08/23 08:35 Hematocrit 22.8 % (37-47) L 08/08/23 16:15 Hgb O2 Saturation 91.2 % (95-100) L 08/08/23 08:35 Carboxyhemoglobin 1.7 %THgb (0.4-20.1) 08/08/23 08:35 Methemoglobin 1.5 % (0.4-1.5) 08/08/23 08:35 Total Hemoglobin 7.7 g/dL (12-16) L 08/08/23 08:35 Sodium 130.0 mmol/L (131-143) L 08/08/23 08:35 Potassium 3.6 mmol/L (3.5-5.0) 08/08/23 08:35 Glucose 122.0 mg/dL (70-115) H 08/08/23 08:35 Ionized Calcium 1.2 mmol/L (1.1-1.4) 08/08/23 08:35 O2 Delivery Device Bipap 08/08/23 16:15 O2 Liters/Min 5.0 % 07/25/23 15:12 FiO2 30.0 % 08/08/23 16:15 Tidal Volume 0.40 08/07/23 04:33 PEEP 8.0 cmH20 08/04/23 14:50 Try Out Person ID Gd 08/08/23 16:15 Sodium 134 mmol/L (136-145) L 08/12/23 05:17 Potassium 3.6 mmol/L (3.5-5.1) 08/12/23 05:17 Chloride 97 mmol/L (98-107) L 08/12/23 05:17 Carbon Dioxide 27 mmol/L (22-29) 08/12/23 05:17 Anion Gap 13.6 (5-19) 08/12/23 05:17 BUN 36 mg/dL (8-23) H 08/12/23 05:17 Creatinine 2.5 mg/dL (0.5-0.9) H 08/12/23 05:17 GFR Calculation Not Reportable 08/12/23 05:17 Glucose 138 mg/dL (65-115) H 08/12/23 05:17 POC Glucose 113 mg/dL (70-110) H 08/12/23 05:23 Calculated Osmolality 289 mOsm/kg (285-295) 08/12/23 05:17 Lactate 3.6 mmol/L (0.5-2.2) H 08/04/23 15:18 Calcium 8.7 mg/dL (8.5-10.5) 08/12/23 05:17 Phosphorus 5.9 mg/dL (2.5-4.5) H 08/05/23 03:45 Magnesium 2.0 mg/dL (1.7-2.3) 08/10/23 04:01 Iron 50 ug/dL (37-145) 08/04/23 04:45 TIBC 273 mcg/dl 08/04/23 04:45 % Saturation 18.3 % (20-50) L 08/04/23 04:45 Unsat Iron Binding 223 ug/dL (112-347) 08/04/23 04:45 Ferritin 110 ng/mL (15-150) 08/04/23 04:45 Total Bilirubin 0.3 mg/dL (0.15-1.2) 08/12/23 05:17 AST 25 U/L (0-32) 08/12/23 05:17 ALT 27 U/L (0-33) 08/12/23 05:17 Alkaline Phosphatase 84 U/L (35-105) 08/12/23 05:17 Troponin T Baseline 43 ng/L (0-10) H 08/02/23 17:51 Troponin T 120 Minute 47.08 ng/L (0-10) H 08/02/23 20:05 Delta Troponin T 4.08 ABS# (0-10) 08/02/23 20:05 Troponin T Hi Sens 6Hr 47.70 ng/L (0-10) H 08/02/23 23:47 Troponin T Hi Sens 6Hr Delta 4.70 ng/L (0-12) 08/02/23 23:47 NT-Pro-B Natriuret Pep 4242 pg/mL (0-125) H 08/02/23 17:51 Total Protein 5.6 g/dL (6.6-8.7) L 08/12/23 05:17 Albumin 3.0 g/dL (3.5-5.2) L 08/12/23 05:17 Globulin 2.6 g/dL (1.3-4.6) 08/12/23 05:17 Vitamin B12 799 pg/mL (232-1245) 08/04/23 04:45 25-OH Vitamin D Total 35 ng/mL (30-100) 08/04/23 04:45 Procalcitonin 0.47 ng/mL (0-0.5) 08/04/23 04:45 Urine Color Dark yellow (Yellow) 07/25/23 11:54 Urine Appearance Hazy (CLEAR) A 07/25/23 11:54 Urine pH 5 (5-7) 07/25/23 11:54 Ur Specific [place] 1.020 (1.005-1.030) 07/25/23 11:54 Urine Protein Trace (Negative) 07/25/23 11:54 Urine Glucose (UA) Norm (Normal) 07/25/23 11:54 Urine Ketones Negative (Negative) 07/25/23 11:54 Urine Blood Neg (Negative) 07/25/23 11:54 Urine Nitrate Negative (Negative) 07/25/23 11:54 Urine Bilirubin Neg (Negative) 07/25/23 11:54 Urine Urobilinogen Norm mg/dL (Negative) 07/25/23 11:54 Ur Leukocyte Esterase Negative (Negative) 07/25/23 11:54 Urine RBC 0-4 /hpf (0-2) H 07/25/23 11:54 Urine WBC 15-25 /hpf (0-5) H 07/25/23 11:54 Ur Squamous Epith Cells 10-15 /hpf (0-5) H 07/25/23 11:54 Ur Transition Epith Cell 5-10 /hpf 07/25/23 11:54 Amorphous Sediment Not Reportable 07/25/23 11:54 Urine Bacteria Trace /hpf (NONE) 07/25/23 11:54 Hyaline Casts 5-10 /lpf H 07/25/23 11:54 Urine Mucus Trace /hpf 07/25/23 11:54 Bronch Specimen Source Right lower lobe 08/06/23 07:50 Bronchial Fluid Color Slight pink 08/06/23 07:50 Bronchial Fluid Appearance Hazy (CLEAR) 08/06/23 07:50 Bronch Cells Counted 200 08/06/23 07:50 Bronchial Neutrophils 29.00 % (0.9-2.3) H 08/06/23 07:50 Bronchial Lymphocytes 3.00 % (10.71-12.91) L 08/06/23 07:50 Bronchial Eosinophils 1.00 % (0.13-0.25) H 08/06/23 07:50 Bronchial Macrophages 67.00 % (83.6-86.8) L 08/06/23 07:50 Bronchial Diff Comment Yes 08/06/23 07:50 Vancomycin Trough 12.0 ug/mL (10-15) 07/28/23 14:08 Digoxin 0.6 ng/mL (0.6-1.2) 08/04/23 04:45 C. difficile Tox (PCR) Not detected (NOT DETECTED) 08/09/23 14:35 Coccidioides immitis CF <1:2 07/26/23 08:55 Coronavirus 229E (PCR) Not detected (NOT DETECT) 07/25/23 15:47 Hep Bs Antigen Non-reactive (Nonreactive) 08/05/23 03:45 Hep Bs Antibody < 3.5 (11.5-1000) L 08/05/23 03:45 Histo Mycel H Protein Negative 07/26/23 08:55 Histo Mycel M Protein Negative 07/26/23 08:55 U Histop Galact Ag Qnt <0.2 ng/mL 07/25/23 11:54 Influenza Type A Ag negative (Negative) 07/25/23 15:47 Influenza Type B Ag negative (Negative) 07/25/23 15:47 Myco Comp PCR Spec Srce Sputum 08/06/23 11:00 Pneumocystis Source Right lower lobe 08/06/23 07:50 Pneumocyst jirovecii PCR Not detected 08/06/23 07:50 Aspergillus Source Whole blood 08/06/23 03:36 Aspergillus Ag (EIA) Not detected 08/06/23 07:50 Aspergillus sp (PCR) Not detected 08/06/23 03:36 A. fumigatus (PCR) Not detected 08/06/23 03:36 A. galactomannan Ag EIA Not detected 07/26/23 08:55 A. galactomannan Ag Idx <0.50 08/06/23 07:50 A. terreus (PCR) Not detected 08/06/23 03:36 SARS-CoV-2 (PCR) Not detected (NOT DETECT) 07/25/23 15:47 SARS-CoV-2 Ag (Rapid) negative (Negative) 08/08/23 14:15 MRSA (PCR) Not detected (NOT DETECTED) 08/04/23 15:18 TB (QFT) Gold In Tube Negative (NEGATIVE) 07/26/23 08:55 TB Test (QFT) Nil 0.04 IU/mL 07/26/23 08:55 TB Test (QFT) Mitogen 8.86 IU/mL 07/26/23 08:55 TB Test Mitogen - Nil 0.00 IU/mL 07/26/23 08:55 TB Test TB -Nil <0.00 IU/mL 07/26/23 08:55 Beta-(1,3)-D-Glucan 123 pg/mL H 07/26/23 08:55 B-(1,3)-D-Glucan Intrp Positive A 07/26/23 08:55 M.tuberculosis Cmplx PCR Not detected 08/06/23 11:00 Misc Test Reference Cancelled 07/30/23 11:20 Blood Type O Positive 08/09/23 12:31 Rho(D) Type Rh positive 08/09/23 12:31 Antibody Screen Negative 08/09/23 12:31 Crossmatch See Detail 08/09/23 12:31 A&P Assessment and plan (1) Acute respiratory failure with hypoxia and hypercarbia: (2) Ventilator dependence: (3) CHF (congestive heart failure): Qualifiers: Heart failure type: diastolic Heart failure chronicity: acute on chronic Qualified Code(s): I50.33 - Acute on chronic diastolic (congestive) heart failure (4) Seronegative rheumatoid arthritis of both hands: (5) High risk medication use: (6) Morbid obesity: (7) Chronic atrial fibrillation: (8) CYNTHIA (acute kidney injury): Plan # Acute hypoxic/hypercapnic respiratory failure in patient with underlying COPD, diastolic heart failure, chronic bilateral pleural effusions, morbid obesity- significantly oxygenation-currently down to 3 L nasal cannula and BiPAP at nighttime # History of rheumatoid arthritis on Humira and immunosuppressive medications- rule out underlying opportunistic infections # CYNTHIA on CKD-currently off pressor # Chronic B-olp-psqxfmrss rate controlled-on p.o. amiodarone; heparin drip for anticoagulation # Hypokalemia and hypomagnesemia-normal- # Large bilateral pleural effusions-Improved with dialysis #Sputum cultures and urine cultures positive for Amber albicans-patient is currently on fluconazole # Severe deconditioning -Successfully extubated to BiPAP and currently on 30% FiO2-significant improvement in mentation-but she is extremely deconditioned-need aggressive physical therapy and rehab -CTA 08/02/2023-ruled out PE; large bilateral pleural effusions; very difficult to do ultrasound-guided thoracentesis given her body habitus; however she was started on hemodialysis -Off pressors -Bronchoscopy 10/07/2022-revealed copious amount of secretions blocking right lower lobe subsegments-they were suctioned out and BAL sent for various studies - Sugars are moderately controlled-On insulin scale coverage -workup so far negative for respiratory viral panel, COVID-19,; Given her immunosuppression for rheumatoid arthritis-extensive workup was sent -Amiodarone IV switched to oral amiodarone; she is started on heparin drip for anticoagulation; she was not on oral anticoagulation as outpatient due to high risk for falls -Currently she is awaiting permacath placement-will decide about outpatient oral anticoagulation after permacath placement -Off TPN-currently on oral feeds and advance as tolerated - So for beta D glucan weekly positive-PCP PCR, histoplasma antigen, coccidioidomycosis--negative; on tapering dose of steroids-on atovaquone prophylaxis - She is in airborne isolation-sputum for MTB-is pending; TB QuantiFERON is negative -Hemodialysis as per renal team ICU CHECKLIST: Problem list updated Verbal orders reviewed and signed Code Status: Full code Disposition: ICU Critically ill: Yes MD discussed with: Hospitalist, RN, RT Prognosis: Guarded Family: updated about medical condition, plan of management, prognosis at bedside Analgesia: N/A Glycemic Control: Scale coverage Nutrition: oral feeds with assistance and advance as tolerated Restraint Renewal (within 24 hrs): Yes Ulcer Prophylaxis: PPI Chemical Thromboprophylaxis: Prophylaxis: Heparin Mechanical Thromboprophylaxis: SCD Need for Manzanares catheter: Yes for urine output monitoring Attestations 2 Medical Necessity Statement*: Continued admission, currently on a heparin drip. Needs permacath placement on Sunday. Continued assessment of mental status. Time Spent in Patient Care: Greater than 35 minutes (>than 50% of time spent in counselling and/or direct pt care on unit) . Critical Care Time: The high probability of a clinically significant, sudden or life threatening deterioration of the patient's [neurologic/pulmonary/cardiac] system(s) required my full and direct attention, intervention and personal management. The critical care time is as shown. This time is in addition to time spent performing any reported procedures but includes the following: [x] Data and vital sign review and interpretation [x] Patient assessment, examination and intervention [x] Documentation [x] Medication orders and management Critical Care Time (min): 43 Coding Level of Care Code Acute Code for Chg Fwd Diagnoses Acute respiratory failure with hypoxia and hypercarbia J96.01; J96.02 Ventilator dependence Z99.11 Acute on chronic diastolic congestive heart failure I50.33 Heart failure type: diastolic Heart failure chronicity: acute on chronic Seronegative rheumatoid arthritis of both hands M06.041; M06.042 High risk medication use Z79.899 Morbid obesity E66.01 Chronic atrial fibrillation I48.20 CYNTHIA (acute kidney injury) N17.9 Time Spent (min) 43
--- NOTE | 2023-08-12 10:37 | P.PN_ITS ---
Subjective 2 Subjective: Patient appears to be more awake since last evaluation, at the bedside during my visit this morning, I have discussed the need for surgery tomorrow, agrees and we will proceed for permacath placement in the morning. Vitals/I&O/Wt Last Vital Signs Temp 98.2 F 08/11/23 22:00 Pulse 104 H 08/12/23 08:30 Resp 22 H 08/12/23 08:30 BP 120/90 08/12/23 06:00 Pulse Ox 98 08/12/23 08:30 O2 Del Method Nasal Cannula 08/12/23 08:30 O2 Flow Rate 3 08/12/23 08:30 FiO2 30 08/12/23 02:54 08/11/23 08/12/23 08/12/23 22:59 06:59 14:59 Intake Total 842.3 / 1344.467 247.80 / 1592.267 Output Total 0 / 3860 Balance 842.3 / -2515.533 247.80 / -2267.733 Weight last 48 hrs Weight 234 lb 4.8 oz Weight 240 lb 11.916 oz Weight 235 lb 10.786 oz Physical Exam 2 Narrative: Patient is awake but this still disoriented HENMT: OTHER: Normal neck exam GI: OTHER: Abdomen is soft, nontender, nondistended Urinary Catheter Management: Manzanares Latex: Cath Placed During This Visit: yes, but has since been removed by the nurse Reason for Continuing Indwelling Catheter: Accurate Measurement of Urinary Output in Critically Ill Patients Urinary Catheter Date of Insertion: 07/27/23 Urinary Catheter Time of Insertion: 19:45 Date Urinary Catheter Removed: 08/03/23 Time Urinary Catheter Discontinued: 14:30 Manzanares: Cath Placed During This Visit: yes, but has since been removed by the nurse Reason for Continuing Indwelling Catheter: Accurate Measurement of Urinary Output in Critically Ill Patients Date Urinary Catheter Removed: 08/11/23 Time Urinary Catheter Discontinued: 14:00 Data 08/12/23 05:17 08/12/23 05:17 A&P Assessment and plan (1) CYNTHIA (acute kidney injury): Plan 72-year-old female with acute on chronic kidney injury requiring long-term dialysis. I was consulted for permacath placement. After all risk and benefits of the procedure were discussed with the patient and the family member as documented in my previous consult note we have decided to proceed with permacath placement tomorrow in the operating room. ? N.p.o. at midnight ? For surgery tomorrow morning Attestations 2 Medical Necessity Statement*: Hospital stay to be guided by medical team. Coding Level of Care Code Acute Code for Chg Fwd Diagnoses CYNTHIA (acute kidney injury) N17.9
--- NOTE | 2023-08-12 11:04 | PC.SLP ---
Patient asleep, opened eyes minimally. Education regarding positioning given to the patient's family member at bedside. Recommended that the patient be NPO if increased swallowing difficulties are noted, until speech can see her tomorrow.
[2023-08-12 11:36] LABS: Glucose Point of Care 211 mg/dL (70-110)
[2023-08-12] MEDS: metoprolol tartrate 50 mg Tablet 25 MG PO ×2 (13:24→20:26)
[2023-08-12] MEDS: metoprolol tartrate 1 mg/1 mL SDV 5 mL 5 MG IVP (13:24)
[2023-08-12] MEDS: insulin lispro 100 unit/1 mL SUBCUT ×2 (13:25→18:28)
--- NOTE | 2023-08-12 13:35 | PC.NURSE ---
Heparin gtt: PTT 61.3. Per protocol no change in rate indicated.
[2023-08-12 13:55] LABS: Partial Thromboplastin Time 61.3 SECONDS (23.9-36.7)
[2023-08-12] MEDS: fluconazole premix 100 MG in empty flexible container 1 EACH 50 MG IV (16:25)
[2023-08-12 17:12] LABS: Glucose Point of Care 276 mg/dL (70-110)
--- NOTE | 2023-08-12 19:08 | PC.NURSE ---
SHift summary: Pt has rested in bed throughout shift. She was able to participate(as much as she can with her severe weakness) with PT. HSe has been more alert and verbal today. She has used O2 at 2lpm/NC this shift except during an afternoon nap which she wore the BiPap. She remains on heparin gtt, PTT within range, so no changes this shift. She has ate everything on the tray at every meal without difficulty. she is very slow eating . She does list to the right when she sits up in the bed. She need persistent encouragement to hold her head u start when she eats, it drifts down towards her right shoulder jacklyn. whe she is tiring. No urine output noted this shift. Fecal containment system intact and patent. Her bottom is healing. has been attentive at bedside and assisting her with meals.
[2023-08-12] MEDS: heparin drip 25,000 UNIT/500 ML PREMIX 21 UNIT IV (19:55)
--- NOTE | 2023-08-12 20:09 | P.PN_ITS ---
Subjective 2 Subjective: on NC Medications: Reviewed: Yes Vitals/I&O/Wt Last Vital Signs Temp 98.2 F 08/12/23 14:00 Pulse 122 H 08/12/23 19:00 Resp 26 H 08/12/23 19:00 BP 151/124 08/12/23 19:00 Pulse Ox 97 08/12/23 19:00 O2 Del Method Nasal Cannula 08/12/23 19:00 O2 Flow Rate 2 08/12/23 19:00 FiO2 30 08/12/23 17:33 08/12/23 08/12/23 08/12/23 06:59 14:59 22:59 Intake Total 247.80 / 1592.267 820 / 820 552.2 / 1372.2 Output Total 0 / 3860 0 / 0 Balance 247.80 / -2267.733 820 / 820 552.2 / 1372.2 Weight last 48 hrs Weight 106.277 kg Weight 109.2 kg Weight 106.9 kg Physical Exam 2 Narrative: awaken, alert S1S2 RRR per report No edema Urinary Catheter Management: Manzanares Latex: Cath Placed During This Visit: yes, but has since been removed by the nurse Reason for Continuing Indwelling Catheter: Accurate Measurement of Urinary Output in Critically Ill Patients Urinary Catheter Date of Insertion: 07/27/23 Urinary Catheter Time of Insertion: 19:45 Date Urinary Catheter Removed: 08/03/23 Time Urinary Catheter Discontinued: 14:30 Manzanares: Cath Placed During This Visit: yes, but has since been removed by the nurse Reason for Continuing Indwelling Catheter: Accurate Measurement of Urinary Output in Critically Ill Patients Date Urinary Catheter Removed: 08/11/23 Time Urinary Catheter Discontinued: 14:00 Data 08/12/23 05:17 08/12/23 05:17 A&P Assessment and plan (1) CYNTHIA (acute kidney injury): Plan 1. Acute on chronic kidney disease stage III: Baseline creatinine is in the 1 range, now has severe CYNTHIA with a creatinine of 3.9 and volume overload, patient became anuric in the last 24 hours. No significant response to diuretics. s/p temporary HD catheter placement and initiated hemodialysis for volume management.sassess daily for HD needs , Currently on 4 L NC , plan for PC placement .HD tomorrow 2. Acute on chronic respiratory failure: Multifactorial, extubated , off pressors 3. Sepsis, secondary to pneumonia, on broad-spectrum antibiotics 4. A-fib 5. Morbid obesity Patient evaluated using audiovisual cart. Time spent 20 minutes. Attestations 2 Medical Necessity Statement*: per medicine Coding Level of Care Code Acute Code for g Fwd Diagnoses CYNTHIA (acute kidney injury) N17.9
[2023-08-12] MEDS: hyDRALAzine 20 mg/mL INJ 1 mL 10 MG IVP (20:18)
[2023-08-12] MEDS: atorvastatin 40 mg Tablet 80 MG PO (20:26)
[2023-08-12 20:57] LABS: Partial Thromboplastin Time 51.3 SECONDS (23.9-36.7)
[2023-08-13] VITALS (35 sets, daily range): BP systolic 115–182; BP diastolic 58–127; PULSE 79–113; RESP 17–30; TEMP 36.6–37.2; O2SAT 94–100
[2023-08-13 00:04] LABS: Glucose Point of Care 242 mg/dL (70-110)
[2023-08-13] MEDS: insulin lispro 100 unit/1 mL SUBCUT ×5 (00:19→23:42)
[2023-08-13] MEDS: hyDRALAzine 20 mg/mL INJ 1 mL 10 MG IVP ×2 (02:18→22:04)
[2023-08-13] MEDS: chlorhexidine gluconate 4% Btl 118 mL 1 APPLIC TOPICAL (03:13)
[2023-08-13 04:39] LABS: Basophils % 0.1 %; Eosinophils % 0.1 %; Hematocrit 29.1 % (36-47); Lymphocytes # 0.6 10^3/uL (0.8-4.8); Lymphocytes % 6.8 %; Mean Corpuscular HGB Conc 31.3 g/dL (30-55); Mean Corpuscular Hemoglobin 27.2 pg (27-33); Mean Corpuscular Volume 86.9 fl (85-98); Monocytes # 0.8 10^3/uL (0.2-0.9); Monocytes % 8.9 %; Neutrophils # 7.47 10^3/uL (1.8-7.7); Neutrophils % 82.3 %; Nucleated Red Blood Cells # 0.1 /100WBC; Nucleated Red Blood Cells % 0.6 %; Platelet Count 192 10^3/cmm (157-399); Red Blood Count 3.35 10^6/uL (3.85-5.65); Red Cell Distribution Width 17.5 % (12.1-15.1); White Blood Count 9.08 10^3/uL (3.29-11.43)
[2023-08-13 05:50] LABS: Blood Urea Nitrogen 49 mg/dL (8-23); Calcium 9.4 mg/dL (8.5-10.5); Carbon Dioxide 25 mmol/L (22-29); Chloride 93 mmol/L (98-107); Glucose 198 mg/dL (65-115); Osmolality Calculated 285 mOsm/kg (285-295); Sodium 128 mmol/L (136-145)
[2023-08-13 05:52] LABS: Anion Gap 14.4 (5-19); Potassium 4.4 mmol/L (3.5-5.1)
[2023-08-13 06:00] LABS: Glucose Point of Care 203 mg/dL (70-110)
[2023-08-13 07:17] LABS: Glucose Point of Care 190 mg/dL (70-110)
--- NOTE | 2023-08-13 07:31 | PM.PN ---
Subjective Subjective: -Patient mentation continues to improve -Appears extremely deconditioned -Plan is to get permacath today - Other labs and imaging reviewed Medications: Reviewed: Yes Vitals/I&O/Wt Last Vital Signs Temp 97.6 F 08/12/23 20:00 Pulse 90 08/13/23 06:00 Resp 25 H 08/13/23 06:00 BP 137/65 08/13/23 06:00 Pulse Ox 100 08/13/23 06:00 O2 Del Method BiPAP 08/13/23 06:00 O2 Flow Rate 30 08/13/23 04:00 FiO2 30 08/13/23 06:00 08/12/23 08/13/23 08/13/23 22:59 06:59 14:59 Intake Total 629.5 / 1449.5 52.7 / 1502.2 Output Total 0 / 0 Balance 629.5 / 1449.5 52.7 / 1502.2 Weight last 48 hrs Weight 237 lb 6.4 oz Weight 234 lb 4.8 oz Weight 240 lb 11.916 oz Physical Exam Narrative: General: Alert oriented and following commands, HEENT: conj clear, EOMI, PERRL, mmm, Neck: supple, no meningismus Heme: no cervical LAP Respiratory: Inspection: No visible deformity of the chest wall Palpation: Trachea is mildly deviated to the right, bilateral symmetric expansion Percussion: Bilateral tympanic percussion note both anterior and posteriorly Auscultation: Improved crackles Cardiovascular: rrr, nl s1s2, no mrg Abdomen: soft, nt, nd, no r/g, bs+ Extremities: pulses +, 1+ pitting pedal edema, no c/c : no CVA tenderness Skin: intact, no rash MSK: no back or neck pain Neurologic: grossly intact Urinary Catheter Management: Manzanares Latex: Cath Placed During This Visit: yes, but has since been removed by the nurse Reason for Continuing Indwelling Catheter: Accurate Measurement of Urinary Output in Critically Ill Patients Urinary Catheter Date of Insertion: 07/27/23 Urinary Catheter Time of Insertion: 19:45 Date Urinary Catheter Removed: 08/03/23 Time Urinary Catheter Discontinued: 14:30 Manzanares: Cath Placed During This Visit: yes, but has since been removed by the nurse Reason for Continuing Indwelling Catheter: Accurate Measurement of Urinary Output in Critically Ill Patients Date Urinary Catheter Removed: 08/11/23 Time Urinary Catheter Discontinued: 14:00 Data 08/13/23 04:06 08/13/23 04:06 Other Labs: Radiology Impressions Chest CTA 08/02/23 17:42 IMPRESSION: 1. Negative for pulmonary embolus. 2. Endotracheal tube and enteric tube seen in place. 3. Right-sided central venous catheter. 4. Large bilateral pleural effusions. 5. Several enlarged mediastinal lymph nodes measuring up to 17 mm, nonspecific. 6. Cardiomegaly. 7. Coronary artery atherosclerotic calcifications. 8. Cirrhotic liver. 9. Hepatic steatosis. 10. Cholecystectomy. 11. Bilateral right greater than left airspace infiltrates. 12. Left kidney 16 mm exophytic probable hyperdense cyst, nonemergent ultrasound could further characterize this. 13. Main pulmonary artery is somewhat prominent which can be a finding of pulmonary artery hypertension. COMMENTS: Consistent with the [employer]'s Incidental Findings Committee white paper (J Am Cesar Radiol 2018): Any incidental renal lesion less than 1 cm or classified as too small to characterize, or any incidental cystic renal lesion characterized as simple-appearing, is likely benign. No follow-up imaging is recommended for these lesions per consensus recommendations based on imaging criteria. Abdomen X-Ray 08/04/23 14:43 IMPRESSION: Air-filled structure positioned in the midline lower abdomen may represent a low-lying stomach. Dilated bowel loop/obstruction cannot be excluded. Laboratory Results WBC 9.08 10^3/uL (3.29-11.43) 08/13/23 04:06 RBC 3.35 10^6/uL (3.85-5.65) L 08/13/23 04:06 Hgb 9.10 g/dL (11.27-16.99) L 08/13/23 04:06 Hct 29.1 % (36-47) L 08/13/23 04:06 MCV 86.9 fl (85-98) 08/13/23 04:06 MCH 27.2 pg (27-33) 08/13/23 04:06 MCHC 31.3 g/dL (30-55) 08/13/23 04:06 RDW 17.5 % (12.1-15.1) H 08/13/23 04:06 Plt Count 192 10^3/cmm (157-399) 08/13/23 04:06 MPV 10.0 fL (7.4-10.4) 08/13/23 04:06 Neut % (Auto) 82.3 % 08/13/23 04:06 Lymph % (Auto) 6.8 % 08/13/23 04:06 Whitman % (Auto) 8.9 % 08/13/23 04:06 Eos % (Auto) 0.1 % 08/13/23 04:06 Baso % (Auto) 0.1 % 08/13/23 04:06 Neut # (Auto) 7.47 10^3/uL (1.8-7.7) 08/13/23 04:06 Lymph # (Auto) 0.6 10^3/uL (0.8-4.8) L 08/13/23 04:06 Whitman # (Auto) 0.8 10^3/uL (0.2-0.9) 08/13/23 04:06 Eos # (Auto) 0.0 10^3/uL (0.0-0.8) 08/13/23 04:06 Baso # (Auto) 0.0 10^3/uL (0.0-0.1) 08/13/23 04:06 Nucleated RBC % (auto) 0.6 % 08/13/23 04:06 Nucleated RBCs # 0.1 /100WBC 08/13/23 04:06 PT 14.70 SECONDS (12.1-14.9) 08/04/23 04:55 INR 1.11 (0.8-1.2) 08/04/23 04:55 APTT 51.3 SECONDS (23.9-36.7) H 08/12/23 20:20 Fibrinogen 556 mg/dL (174-498) H 08/02/23 17:51 Fibrin Degrad Products <5 mcg/mL (LESS THAN 5) 08/02/23 17:58 D-Dimer 0.74 ug/mLFEU (0-0.59) H 08/02/23 17:51 Specimen Type Arterial 08/08/23 16:15 Sample Site Brachial, left 08/08/23 16:15 ABG pH 7.35 (7.35-7.45) 08/08/23 16:15 ABG pCO2 46.2 mmHg (35-45) H 08/08/23 16:15 ABG pO2 68.6 mmHg (80.0-100.0) L 08/08/23 16:15 ABG PO2/FiO2 Ratio 0 08/08/23 16:15 ABG HCO3 25.3 mmol/L (22-26) 08/08/23 16:15 ABG O2 Saturation 94.2 08/08/23 08:35 ABG Base Excess -0.5 mmol/L (-2.0-2.0) 08/08/23 16:15 Memo Test Pos 08/08/23 16:15 A-a O2 Gradient 10.2 mmHg (5-10) H 08/08/23 08:35 Hematocrit 22.8 % (37-47) L 08/08/23 16:15 Hgb O2 Saturation 91.2 % (95-100) L 08/08/23 08:35 Carboxyhemoglobin 1.7 %THgb (0.4-20.1) 08/08/23 08:35 Methemoglobin 1.5 % (0.4-1.5) 08/08/23 08:35 Total Hemoglobin 7.7 g/dL (12-16) L 08/08/23 08:35 Sodium 130.0 mmol/L (131-143) L 08/08/23 08:35 Potassium 3.6 mmol/L (3.5-5.0) 08/08/23 08:35 Glucose 122.0 mg/dL (70-115) H 08/08/23 08:35 Ionized Calcium 1.2 mmol/L (1.1-1.4) 08/08/23 08:35 O2 Delivery Device Bipap 08/08/23 16:15 O2 Liters/Min 5.0 % 07/25/23 15:12 FiO2 30.0 % 08/08/23 16:15 Tidal Volume 0.40 08/07/23 04:33 PEEP 8.0 cmH20 08/04/23 14:50 Chip Unloader ID Gd 08/08/23 16:15 Sodium 128 mmol/L (136-145) L 08/13/23 04:06 Potassium 4.4 mmol/L (3.5-5.1) 08/13/23 04:06 Chloride 93 mmol/L (98-107) L 08/13/23 04:06 Carbon Dioxide 25 mmol/L (22-29) 08/13/23 04:06 Anion Gap 14.4 (5-19) 08/13/23 04:06 BUN 49 mg/dL (8-23) H 08/13/23 04:06 Creatinine 2.6 mg/dL (0.5-0.9) H 08/13/23 04:06 GFR Calculation Not Reportable 08/13/23 04:06 Glucose 198 mg/dL (65-115) H 08/13/23 04:06 POC Glucose 171 mg/dL (70-110) H 08/13/23 16:54 Calculated Osmolality 285 mOsm/kg (285-295) 08/13/23 04:06 Lactate 3.6 mmol/L (0.5-2.2) H 08/04/23 15:18 Calcium 9.4 mg/dL (8.5-10.5) 08/13/23 04:06 Phosphorus 5.9 mg/dL (2.5-4.5) H 08/05/23 03:45 Magnesium 2.0 mg/dL (1.7-2.3) 08/10/23 04:01 Iron 50 ug/dL (37-145) 08/04/23 04:45 TIBC 273 mcg/dl 08/04/23 04:45 % Saturation 18.3 % (20-50) L 08/04/23 04:45 Unsat Iron Binding 223 ug/dL (112-347) 08/04/23 04:45 Ferritin 110 ng/mL (15-150) 08/04/23 04:45 Total Bilirubin 0.3 mg/dL (0.15-1.2) 08/12/23 05:17 AST 25 U/L (0-32) 08/12/23 05:17 ALT 27 U/L (0-33) 08/12/23 05:17 Alkaline Phosphatase 84 U/L (35-105) 08/12/23 05:17 Troponin T Baseline 43 ng/L (0-10) H 08/02/23 17:51 Troponin T 120 Minute 47.08 ng/L (0-10) H 08/02/23 20:05 Delta Troponin T 4.08 ABS# (0-10) 08/02/23 20:05 Troponin T Hi Sens 6Hr 47.70 ng/L (0-10) H 08/02/23 23:47 Troponin T Hi Sens 6Hr Delta 4.70 ng/L (0-12) 08/02/23 23:47 NT-Pro-B Natriuret Pep 4242 pg/mL (0-125) H 08/02/23 17:51 Total Protein 5.6 g/dL (6.6-8.7) L 08/12/23 05:17 Albumin 3.0 g/dL (3.5-5.2) L 08/12/23 05:17 Globulin 2.6 g/dL (1.3-4.6) 08/12/23 05:17 Vitamin B12 799 pg/mL (232-1245) 08/04/23 04:45 25-OH Vitamin D Total 35 ng/mL (30-100) 08/04/23 04:45 Procalcitonin 0.47 ng/mL (0-0.5) 08/04/23 04:45 Urine Color Dark yellow (Yellow) 07/25/23 11:54 Urine Appearance Hazy (CLEAR) A 07/25/23 11:54 Urine pH 5 (5-7) 07/25/23 11:54 Ur Specific [place] 1.020 (1.005-1.030) 07/25/23 11:54 Urine Protein Trace (Negative) 07/25/23 11:54 Urine Glucose (UA) Norm (Normal) 07/25/23 11:54 Urine Ketones Negative (Negative) 07/25/23 11:54 Urine Blood Neg (Negative) 07/25/23 11:54 Urine Nitrate Negative (Negative) 07/25/23 11:54 Urine Bilirubin Neg (Negative) 07/25/23 11:54 Urine Urobilinogen Norm mg/dL (Negative) 07/25/23 11:54 Ur Leukocyte Esterase Negative (Negative) 07/25/23 11:54 Urine RBC 0-4 /hpf (0-2) H 07/25/23 11:54 Urine WBC 15-25 /hpf (0-5) H 07/25/23 11:54 Ur Squamous Epith Cells 10-15 /hpf (0-5) H 07/25/23 11:54 Ur Transition Epith Cell 5-10 /hpf 07/25/23 11:54 Amorphous Sediment Not Reportable 07/25/23 11:54 Urine Bacteria Trace /hpf (NONE) 07/25/23 11:54 Hyaline Casts 5-10 /lpf H 07/25/23 11:54 Urine Mucus Trace /hpf 07/25/23 11:54 Bronch Specimen Source Right lower lobe 08/06/23 07:50 Bronchial Fluid Color Slight pink 08/06/23 07:50 Bronchial Fluid Appearance Hazy (CLEAR) 08/06/23 07:50 Bronch Cells Counted 200 08/06/23 07:50 Bronchial Neutrophils 29.00 % (0.9-2.3) H 08/06/23 07:50 Bronchial Lymphocytes 3.00 % (10.71-12.91) L 08/06/23 07:50 Bronchial Eosinophils 1.00 % (0.13-0.25) H 08/06/23 07:50 Bronchial Macrophages 67.00 % (83.6-86.8) L 08/06/23 07:50 Bronchial Diff Comment Yes 08/06/23 07:50 Vancomycin Trough 12.0 ug/mL (10-15) 07/28/23 14:08 Digoxin 0.6 ng/mL (0.6-1.2) 08/04/23 04:45 C. difficile Tox (PCR) Not detected (NOT DETECTED) 08/09/23 14:35 Coccidioides immitis CF <1:2 07/26/23 08:55 Coronavirus 229E (PCR) Not detected (NOT DETECT) 07/25/23 15:47 Hep Bs Antigen Non-reactive (Nonreactive) 08/05/23 03:45 Hep Bs Antibody < 3.5 (11.5-1000) L 08/05/23 03:45 Histo Mycel H Protein Negative 07/26/23 08:55 Histo Mycel M Protein Negative 07/26/23 08:55 U Histop Galact Ag Qnt <0.2 ng/mL 07/25/23 11:54 Influenza Type A Ag negative (Negative) 07/25/23 15:47 Influenza Type B Ag negative (Negative) 07/25/23 15:47 Myco Comp PCR Spec Srce Sputum 08/06/23 11:00 Pneumocystis Source Right lower lobe 08/06/23 07:50 Pneumocyst jirovecii PCR Not detected 08/06/23 07:50 Aspergillus Source Whole blood 08/06/23 03:36 Aspergillus Ag (EIA) Not detected 08/06/23 07:50 Aspergillus sp (PCR) Not detected 08/06/23 03:36 A. fumigatus (PCR) Not detected 08/06/23 03:36 A. galactomannan Ag EIA Not detected 07/26/23 08:55 A. galactomannan Ag Idx <0.50 08/06/23 07:50 A. terreus (PCR) Not detected 08/06/23 03:36 SARS-CoV-2 (PCR) Not detected (NOT DETECT) 07/25/23 15:47 SARS-CoV-2 Ag (Rapid) negative (Negative) 08/08/23 14:15 MRSA (PCR) Not detected (NOT DETECTED) 08/04/23 15:18 TB (QFT) Gold In Tube Negative (NEGATIVE) 07/26/23 08:55 TB Test (QFT) Nil 0.04 IU/mL 07/26/23 08:55 TB Test (QFT) Mitogen 8.86 IU/mL 07/26/23 08:55 TB Test Mitogen - Nil 0.00 IU/mL 07/26/23 08:55 TB Test TB -Nil <0.00 IU/mL 07/26/23 08:55 Beta-(1,3)-D-Glucan 123 pg/mL H 07/26/23 08:55 B-(1,3)-D-Glucan Intrp Positive A 07/26/23 08:55 M.tuberculosis Cmplx PCR Not detected 08/06/23 11:00 Misc Test Reference Cancelled 07/30/23 11:20 Blood Type O Positive 08/09/23 12:31 Rho(D) Type Rh positive 08/09/23 12:31 Antibody Screen Negative 08/09/23 12:31 Crossmatch See Detail 08/09/23 12:31 A&P Assessment and plan (1) Acute respiratory failure with hypoxia and hypercarbia: (2) Ventilator dependence: (3) CHF (congestive heart failure): Qualifiers: Heart failure type: diastolic Heart failure chronicity: acute on chronic Qualified Code(s): I50.33 - Acute on chronic diastolic (congestive) heart failure (4) Seronegative rheumatoid arthritis of both hands: (5) High risk medication use: (6) Morbid obesity: (7) Chronic atrial fibrillation: (8) CYNTHIA (acute kidney injury): (9) Amber albicans infection: Plan # Acute hypoxic/hypercapnic respiratory failure in patient with underlying COPD, diastolic heart failure, chronic bilateral pleural effusions, morbid obesity-significantly oxygenation-currently down to 3 L nasal cannula and BiPAP at nighttime # History of rheumatoid arthritis on Humira and immunosuppressive medications-rule out underlying opportunistic infections # CYNTHIA on CKD-currently off pressor # Chronic Y-xuv-nikjgwlmx rate controlled-on p.o. amiodarone; heparin drip for anticoagulation # Hypokalemia and hypomagnesemia-normal- # Large bilateral pleural effusions-Improved with dialysis #Sputum cultures and urine cultures positive for Amber albicans-patient is currently on fluconazole # Severe deconditioning -Successfully extubated to BiPAP and currently on 30% FiO2-significant improvement in mentation-but she is extremely deconditioned-need aggressive physical therapy and rehab -CTA 08/02/2023-ruled out PE; large bilateral pleural effusions; very difficult to do ultrasound-guided thoracentesis given her body habitus; however she was started on hemodialysis -Off pressors -Bronchoscopy 10/07/2022-revealed copious amount of secretions blocking right lower lobe subsegments-they were suctioned out and BAL sent for various studies - Sugars are moderately controlled-On insulin scale coverage -workup so far negative for respiratory viral panel, COVID-19,; Given her immunosuppression for rheumatoid arthritis-extensive workup was sent -Amiodarone IV switched to oral amiodarone; she is started on heparin drip for anticoagulation; she was not on oral anticoagulation as outpatient due to high risk for falls -Currently she is awaiting permacath placement-will decide about outpatient oral anticoagulation after permacath placement -Off TPN-currently on oral feeds and advance as tolerated - So for beta D glucan weekly positive-PCP PCR, histoplasma antigen, coccidioidomycosis--negative; on tapering dose of steroids-on atovaquone prophylaxis - She is in airborne isolation-sputum for MTB-is pending; TB QuantiFERON is negative -Hemodialysis as per renal team ICU CHECKLIST: Problem list updated Verbal orders reviewed and signed Code Status: Full code Disposition: ICU Critically ill: Yes MD discussed with: Hospitalist, RN, RT Prognosis: Guarded Family: updated about medical condition, plan of management, prognosis at bedside Analgesia: N/A Glycemic Control: Scale coverage Nutrition: oral feeds with assistance and advance as tolerated Restraint Renewal (within 24 hrs): Yes Ulcer Prophylaxis: PPI Chemical Thromboprophylaxis: Prophylaxis: Heparin Mechanical Thromboprophylaxis: SCD Need for Manzanares catheter: Yes for urine output monitoring Attestations Medical Necessity Statement*: Continued admission, currently on a heparin drip. Needs permacath placement . Continued assessment of mental status. Time Spent in Patient Care: Greater than 35 minutes (>than 50% of time spent in counselling and/or direct pt care on unit). Critical Care Time: The high probability of a clinically significant, sudden or life threatening deterioration of the patient's [neurologic/pulmonary/cardiac] system(s) required my full and direct attention, intervention and personal management. The critical care time is as shown. This time is in addition to time spent performing any reported procedures but includes the following: [x] Data and vital sign review and interpretation [x] Patient assessment, examination and intervention [x] Documentation [x] Medication orders and management Critical Care Time (min): 48 Coding Level of Care Code Acute Code for [facility] Fwd Diagnoses Acute respiratory failure with hypoxia and hypercarbia J96.01; J96.02 Ventilator dependence Z99.11 Acute on chronic diastolic congestive heart failure I50.33 Heart failure type: diastolic Heart failure chronicity: acute on chronic Seronegative rheumatoid arthritis of both hands M06.041; M06.042 High risk medication use Z79.899 Morbid obesity E66.01 Chronic atrial fibrillation I48.20 CYNTHIA (acute kidney injury) N17.9 Amber albicans infection B37.9 Time Spent (min) 48
[2023-08-13] MEDS: ipratropium-albuterol 3 mL Neb INHALATION ×3 (07:40→20:39)
--- NOTE | 2023-08-13 08:55 | PC.OT ---
HOLD OT TREATMENT TODAY DUE TO SCHEDULED SURGERY TODAY.
[2023-08-13] MEDS: predniSONE 20 mg Tablet 40 MG PO (09:07)
[2023-08-13] MEDS: amiodarone 200 mg Tablet 400 MG PO ×2 (09:07→17:28)
[2023-08-13] MEDS: metoprolol tartrate 50 mg Tablet 25 MG PO ×2 (09:11→20:15)
[2023-08-13] MEDS: lanolin oint 7 gm 1 APPLIC TOPICAL (09:12)
[2023-08-13] MEDS: zinc oxide oint 30 gm 1 APPLIC TOPICAL (09:12)
[2023-08-13] MEDS: chlorhexidine gluconate 0.12% Btl 473 mL 15 ML MUCOUS MEM ×2 (09:13→17:29)
[2023-08-13] MEDS: pantoprazole 40 mg SDV IVP ×2 (09:13→17:28)
[2023-08-13] MEDS: lidocaine 5% Patch 1 PATCH TOPICAL (09:13)
[2023-08-13 11:47] LABS: Glucose Point of Care 146 mg/dL (70-110)
--- NOTE | 2023-08-13 13:53 | P.PN_ITS ---
Subjective 2 Subjective: on 3L NC Medications: Reviewed: Yes Vitals/I&O/Wt Last Vital Signs Temp 98.9 F 08/13/23 12:28 Pulse 89 08/13/23 11:25 Resp 20 H 08/13/23 11:12 BP 137/65 08/13/23 06:00 Pulse Ox 99 08/13/23 11:12 O2 Del Method Nasal Cannula 08/13/23 11:12 O2 Flow Rate 2 08/13/23 11:12 FiO2 30 08/13/23 07:45 08/12/23 08/13/23 08/13/23 22:59 06:59 14:59 Intake Total 629.5 / 1449.5 52.7 / 1502.2 Output Total 0 / 0 Balance 629.5 / 1449.5 52.7 / 1502.2 Weight last 48 hrs Weight 107.683 kg Weight 106.277 kg Physical Exam 2 Narrative: awaken, alert S1S2 RRR per report No edema Urinary Catheter Management: Manzanares Latex: Cath Placed During This Visit: yes, but has since been removed by the nurse Reason for Continuing Indwelling Catheter: Accurate Measurement of Urinary Output in Critically Ill Patients Urinary Catheter Date of Insertion: 07/27/23 Urinary Catheter Time of Insertion: 19:45 Date Urinary Catheter Removed: 08/03/23 Time Urinary Catheter Discontinued: 14:30 Manzanares: Cath Placed During This Visit: yes, but has since been removed by the nurse Reason for Continuing Indwelling Catheter: Accurate Measurement of Urinary Output in Critically Ill Patients Date Urinary Catheter Removed: 08/11/23 Time Urinary Catheter Discontinued: 14:00 Data 08/13/23 04:06 08/13/23 04:06 A&P Assessment and plan (1) CYNTHIA (acute kidney injury): Plan 1. Acute on chronic kidney disease stage III: Baseline creatinine is in the 1 range, now has severe CYNTHIA with a creatinine of 3.9 and volume overload, patient became anuric in the last 24 hours. No significant response to diuretics. s/p temporary HD catheter placement and initiated hemodialysis for volume management.sassess daily for HD needs , Currently on 3 L NC , plan for PC placement today .HD tomorrow 2. Acute on chronic respiratory failure: Multifactorial, extubated , off pressors 3. Sepsis, secondary to pneumonia, on broad-spectrum antibiotics 4. A-fib 5. Morbid obesity Patient evaluated using audiovisual cart. Time spent 20 minutes. Attestations 2 Medical Necessity Statement*: per [facility] Coding Level of Care Code Acute Code for [facility] Fwd Diagnoses CYNTHIA (acute kidney injury) N17.9
--- NOTE | 2023-08-13 14:17 | P.HPUD_ITS ---
Surgery/Procedure H&P Update DATE OF PROCEDURE: August 13, 2023 DATE H&P PERFORMED: 08/10/23 H&P UPDATE INFORMATION: I have reviewed H&P completed within last 30 days, I have examined patient prior to procedure, No changes to prior documentation and H&P is in [facility] EMR on date indicated PREOP DIAGNOSIS: Need for dialysis due to acute on chronic kidney injury. PLANNED PROCEDURE: Operation Date: 08/13/23 12:25 Proposed Procedures p Dialysis Catheter Insertion(Not Applicable) - Tex Gomez MD
--- NOTE | 2023-08-13 14:36 | SC_ITS ---
WS: [id number] C-arm fluoroscopy for dialysis catheter insertion, 08/13/2023 Clinical Data: Intraoperative Comparison: Portable chest, 08/08/2023 Findings: Dr. Gomez inserted a right dialysis catheter via the right internal jugular vein. Impression: Placement of right dialysis catheter.
--- NOTE | 2023-08-13 14:43 | ANES.PREANE2 ---
Pre-Anesthetic Assessment Height/Weight: Height 1.78 m Weight 107.683 kg Temp Pulse Resp BP Pulse Ox O2 Del Method O2 Flow Rate 98.2 F 86 20 H 115/58 97 Nasal Cannula 2 08/13/23 14:01 08/13/23 14:20 08/13/23 14:00 08/13/23 14:00 08/13/23 14:00 08/13/23 11:12 08/13/23 11:12 FiO2 30 08/13/23 07:45 Preop Diagnosis: Need for dialysis due to acute on chronic kidney injury. Operation Date: 08/13/23 12:25 Proposed Procedures p Dialysis Catheter Insertion(Not Applicable) - Tex Gomez MD Familial anesthetic complications: none Was Beta Isidro taken within 24 hours: Yes Was Clonidine taken within 24 hours: N/A Social No alcohol and No tobacco Exam alert tachy Airway Submandibular: within normal limits Cervical ROM: within normal limits Mallampati: Class II Dentition: false Pulmonary Chronic Obstructive Pulmonary Disease acute resp failure, home O2 2L CV/HEM Anemia, Arrythmia, Congestive Heart Failure (EF 65%) and Hypertension CONCLUSIONS The study is relatively poor quality due to the irregular rhythm and tachycardia. Heart rate is approximately 130 bpm. This significantly limits the sensitivity to the examination. The ventricle, at least in 1 view, appears to be normal in size and probably normal in function. Wall motion cannot be determined. Diastology cannot be determined. Right ventricle not well visualized. Moderate pulmonary hypertension, RVSP 54.8 mmHg. Mildly increased right atrial size. Moderately increased left atrial size. Mitral valve not well visualized. There is at least mild mitral regurgitation. The previous echocardiogram was done only 1 month ago. This study quality is severely limited by the irregular tachycardia. The study is essentially unchanged. Dr. Min Tipton MD (Electronically Signed) Final Date: 05 August 2023 Chronic Renal Failure Hepatic Cirrhosis GI Gastroesophageal Reflux Disease Metabolic Diabetes Mellitus and Morbid Obesity Musc/skel Lower Back Pain, Osteoarthritis/DJD and Weakness Neuropsych Anxiety and Depression Anesthetic Plan ASA status: 4 Anesthesia: MAC Medications/Allergies Home Medications Medication Instructions Recorded Confirmed Last Taken Type acetaminophen 650 mg 650 mg PO Q4H PRN Pain 10/12/19 07/25/23 11/04/21 History tablet,extended release (Arthritis Pain Reliever) cholecalciferol (vitamin D3) 25 1,000 unit PO QAM 10/12/19 07/25/23 07/25/23 History mcg (1,000 unit) tablet (Vitamin D3) nitroglycerin 0.4 mg sublingual 0.4 mg sublingual Q5M PRN Chest 02/08/21 07/25/23 Unknown Rx tablet (Nitrostat) Pain #30 tabs chlorpheniramine maleate 4 mg See Rx Instructions .Route .COMPLEX 03/16/21 07/25/23 07/25/23 History tablet (ChlorTabs) cyanocobalamin (vitamin B-12) 500 500 mcg PO QAM 03/16/21 07/25/23 07/25/23 History mcg tablet (Vitamin B-12) diphenhydramine HCl 25 mg capsule See Rx Instructions .Route .COMPLEX 03/16/21 07/25/23 06/29/23 History (Benadryl) docusate sodium 250 mg capsule 250 mg PO QAM 03/16/21 07/25/23 07/25/23 History (Stool Softener) ferrous gluconate 324 mg (37.5 mg 324 mg PO DAILY@12 05/06/21 07/25/23 07/24/23 History iron) tablet calcium carbonate 600 mg calcium 600 mg PO DAILY@12 06/27/21 07/25/23 07/24/23 History (1,500 mg) tablet (Calcium) levothyroxine 150 mcg tablet 150 mcg PO QAM 06/27/21 07/25/23 07/25/23 History (Euthyrox) pantoprazole 40 mg tablet,delayed 40 mg PO BID 09/13/21 07/25/23 07/25/23 History release hydralazine 10 mg tablet 10 mg PO TID #270 tabs 04/03/23 07/25/23 07/25/23 06:30 Rx lisinopril 40 mg tablet 40 mg PO QPM #30 tabs 04/03/23 07/25/23 07/24/23 Rx magnesium L-lactate 84 mg 84 mg PO BID #180 tabs 04/03/23 07/25/23 07/25/23 Rx tablet,extended release pyridostigmine bromide 60 mg tablet 60 mg PO QAM 04/17/23 07/25/23 1 Week Ago History ~07/18/23 tramadol 50 mg tablet 50 mg PO TID 04/17/23 07/25/23 1 Week Ago History ~07/18/23 methotrexate sodium 2.5 mg tablet 15 mg (6 x 2.5 mg) PO Q7D #90 tabs 04/24/23 07/25/23 2 Weeks Ago Rx ~07/11/23 glucose 4 gram chewable tablet 4 g PO PRN PRN Hypoglycemia 06/17/23 07/25/23 Unknown History metoprolol succinate 100 mg 100 mg PO QAM 06/17/23 07/25/23 07/25/23 History tablet,extended release 24 hr fluticasone fur. 200 mcg-umeclid 1 inh inhalation DAILY #28 ea 06/20/23 07/25/23 06/30/23 Rx 62.5 mcg-vilant 25 mcg inhalat.powder (Trelegy Ellipta) adalimumab 40 mg/0.8 mL See Rx Instructions .Route 06/26/23 07/25/23 07/21/23 Rx subcutaneous pen kit (Humira Pen) .COMPLEX #2 ea atorvastatin 80 mg tablet 80 mg PO BEDTIME 07/25/23 07/25/23 07/24/23 History digoxin 125 mcg (0.125 mg) tablet See Rx Instructions .Route .COMPLEX 07/25/23 07/25/23 07/25/23 History 62.5mcg duloxetine 60 mg capsule,delayed 60 mg PO QAM 07/25/23 07/25/23 07/25/23 History release folic acid 1 mg tablet 1 mg PO QAM 07/25/23 07/25/23 07/25/23 History furosemide 20 mg tablet 20 mg PO QAM 07/25/23 07/25/23 07/25/23 History hydrocodone 7.5 mg-acetaminophen 1 tab PO TID 07/25/23 07/25/23 07/25/23 History 325 mg tablet insulin lispro 100 unit/mL See Rx Instructions .Route .COMPLEX 07/25/23 07/25/23 Unknown History subcutaneous pen levofloxacin 750 mg tablet 750 mg PO DAILY@17 07/25/23 07/25/23 07/24/23 History omega-3 fatty acids 1,000 mg 2,000 mg PO BEDTIME 07/25/23 07/25/23 07/24/23 History capsule potassium chloride 20 mEq 20 meq PO QAM 1107/25/23 07/25/23 History tablet,extended release pyridoxine (vitamin B6) 500 mg 500 mg PO QAM 07/25/23 07/25/23 07/25/23 History tablet riboflavin (vitamin B2) 100 mg 100 mg PO QAM 07/25/23 07/25/23 07/25/23 History tablet (Vitamin B-2) zinc acetate 50 mg (zinc) capsule 50 mg PO DAILY@12 07/25/23 07/25/23 07/24/23 History atovaquone 750 mg/5 mL oral 750 mg (5 mL) PO BID #210 mL 08/07/23 Unknown Rx suspension Allergies Allergy/AdvReac Type Severity Reaction Status Date / Time adhesive tape Allergy rash Verified 06/30/23 17:49 cinnamon Allergy sinus Verified 06/30/23 17:49 codeine Allergy unknown Verified 06/30/23 17:49 cedar Allergy sinus Uncoded 06/30/23 17:49 pine Allergy sinus Uncoded 06/30/23 17:49 pork food Allergy ADR-Nausea Uncoded 06/30/23 17:49 Current Medications Generic Name Dose Route Start Last Admin Trade Name Freq PRN Reason Stop Dose Admin Acetaminophen 650 mg 07/25/23 18:56 08/11/23 06:12 Acetaminophen 325 Mg Tablet PO 650 mg Q6H PRN Administration Mild/Mod Pain Or Temp >/= 101 Albuterol/Ipratropium 3 ml 07/25/23 20:00 08/13/23 11:17 Ipratropium-Albuterol 3 Ml Neb INHALATION 3 ml QID.RESPIRATORY JOCE Administration Amiodarone HCl 400 mg 08/11/23 18:00 08/13/23 09:07 Amiodarone 200 Mg Tablet PO 400 mg BID JOCE Administration Atorvastatin Calcium 80 mg 08/11/23 21:00 08/12/23 20:26 Atorvastatin 40 Mg Tablet PO 80 mg BEDTIME JOCE Administration Chlorhexidine Gluconate 15 ml 08/02/23 18:00 08/13/23 09:13 Chlorhexidine Gluconate 0.12% Btl 473 Ml MUCOUS MEM 15 ml BID JOCE Administration Chlorhexidine Gluconate 1 applic 08/05/23 22:00 08/13/23 03:13 Chlorhexidine Gluconate 4% Btl 118 Ml TOPICAL 1 applic Q24H JOCE Administration Duloxetine HCl 60 mg 07/26/23 06:00 08/11/23 05:40 Duloxetine 60 Mg Capsule PO 60 mg QAM JOCE Administration Heparin Sodium (Porcine) 10,000 unit 08/05/23 13:25 08/07/23 15:42 Heparin, Porcine 1,000 Unit/Ml Inj 10 Ml INTRACATH 10,000 unit PRN PRN Administration HD CATH Heparin Sodium (Porcine) 1,000 unit 08/05/23 13:26 08/07/23 15:41 Heparin, Porcine 1,000 Unit/Ml Inj 10 Ml IV 1,000 unit PRN PRN Administration HD IV Hydralazine HCl 25 mg 07/28/23 21:00 08/01/23 20:08 Hydralazine 25 Mg Tablet PO 25 mg TID JOCE Administration Hydralazine HCl 10 mg 08/10/23 14:16 08/13/23 02:18 Hydralazine 20 Mg/Ml Inj 1 Ml IVP 10 mg Q6H PRN Administration SBP > 160 Heparin Sodium/Sodium Chloride 25,000 unit in 500 mls @ 0 mls/hr 08/10/23 20:00 08/12/23 23:35 Heparin Drip IV Infused .Q0M [facility] Titration Protocol Per Protocol Insulin Human Lispro 0 unit 08/03/23 12:00 08/13/23 11:51 Insulin Lispro 100 Unit/1 Ml SUBCUT 6 unit Q6H JOCE Administration Protocol Lanolin 1 applic 08/02/23 00:40 08/13/23 09:12 Lanolin Oint 7 Gm TOPICAL 1 applic PRN PRN Administration DRYNESS Levothyroxine Sodium 150 mcg 08/12/23 06:00 08/13/23 05:29 Levothyroxine 150 Mcg Tablet PO Not Given QAM [facility] Lidocaine 1 patch 07/29/23 12:11 08/13/23 09:13 Lidocaine 5% Patch TOPICAL 1 patch [id number] JOCE Administration Metoprolol Tartrate 25 mg 08/12/23 12:43 08/13/23 09:11 Metoprolol Tartrate 50 Mg Tablet PO 25 mg BID@0900,2100 [facility] Administration Nystatin 1 applic 08/03/23 18:00 08/13/23 09:19 Nystatin Powder 15 Gm Btl TOPICAL Not Given BID [facility] Pantoprazole Sodium 40 mg 08/04/23 18:00 08/13/23 09:13 Pantoprazole 40 Mg Sdv IVP 40 mg BID JOCE Administration Prednisone 40 mg 08/12/23 09:00 08/13/23 09:07 Prednisone 20 Mg Tablet PO 40 mg DAILY JOCE Administration Pyridostigmine [place] 60 mg 07/26/23 06:00 08/13/23 05:29 Pyridostigmine 60 Mg Tablet PO Not Given QAM JOCE Zinc Oxide 1 applic 08/08/23 16:18 08/13/23 09:12 Zinc Oxide Oint 30 Gm TOPICAL 1 applic PRN PRN Administration [facility] Anesthesia Medical History Major depressive disorder, recurrent episode, moderate with anxious distress Duodenal ulcer due to bacteria Psychiatric care Coronary artery disease Immunization counseling High risk medication use Chronic knee pain Chronic low back pain COVID-14 August 2020 Seronegative rheumatoid arthritis of both hands Intermittent atrial fibrillation Poorly controlled diabetes mellitus UTI (urinary tract infection) CHF exacerbation Narrow complex tachycardia Inflammatory arthritis Osteoarthritis of knees, bilateral Fibromyalgia Lung nodule Unstable angina Low back pain of over 3 months duration Urgency incontinence Left renal mass COPD (chronic obstructive pulmonary disease) Oxygen dependent, 2 L at baseline Anxiety and depression Hypothyroidism Liver cirrhosis Hyperlipidemia Hypertension Recurrent UTI Surgical History History of cholecystectomy History of thyroid surgery History of cardiac cath History of hysterectomy History of knee replacement Family History Other CAD (coronary artery disease) Cancer Denies family history of Anesthesia complication Bleeding disorder Social History Smoking and tobacco/nicotine status: former use of tobacco/nicotine Quit status (tobacco/nicotine): has quit using Year quit tobacco: 2005 Second hand smoke exposure: No Alcohol intake: never Substance/Drug Use: never Adopted: No Caregiver/support person: No Lives independently: No Household members: spouse Marital status: Current occupational status: retired Current gender identity: Female Data Anesthesia 08/13/23 04:06 08/13/23 04:06 Short CBC 08/12/23 08/13/23 Range/Units 05:17 04:06 WBC 7.86 9.08 (3.29-11.43) 10^3/uL Hgb 8.80 L 9.10 L (11.27-16.99) g/dL Hct 28.0 L 29.1 L (36-47) % MCV 87.0 86.9 (85-98) fl Plt Count 149 L 192 (157-399) 10^3/cmm Neut % (Auto) 77.2 82.3 % Neut # (Auto) 6.07 7.47 (1.8-7.7) 10^3/uL BMP 08/12/23 08/13/23 05:17 04:06 Sodium 134 L 128 L Potassium 3.6 4.4 Chloride 97 L 93 L Carbon Dioxide 27 25 BUN 36 H 49 H Creatinine 2.5 H 2.6 H Glucose 138 H 198 H Calcium 8.7 9.4 Liver Function 08/12/23 Range/Units 05:17 Total Bilirubin 0.3 (0.15-1.2) mg/dL AST 25 (0-32) U/L ALT 27 (0-33) U/L Alkaline Phosphatase 84 (35-105) U/L Albumin 3.0 L (3.5-5.2) g/dL Coags 08/11/23 08/11/23 08/12/23 15:49 21:55 05:17 APTT 108.2 H 45.7 H D 66.1 H 08/12/23 08/12/23 13:34 20:20 APTT 61.3 H 51.3 H Cardiac Studies: Echocardiogram 08/04/23 Echocardiogram Ultrasound 10/13/20 Sestamibi Stress Test (Cardiology) 03/16/21 Cardiac Event Monitor 07/17/22
--- NOTE | 2023-08-13 15:00 | PC.NURSE ---
Pt to OR for dialysis cath.
[2023-08-13] MEDS: lidocaine-epi 2% 20 mL INJ 10 ML INJECTION (15:28)
[2023-08-13] MEDS: BUPivacaine 0.25% INJ 10 mL INJECTION (15:28)
[2023-08-13] MEDS: ceFAZolin 1,000 mg SDV 2000 MG IVP (15:29)
[2023-08-13] MEDS: heparin, porcine 1,000 unit/mL INJ 10 mL 6000 UNIT XX (15:38)
--- NOTE | 2023-08-13 15:55 | P.OP_ITS ---
Operative Report Date of procedure: August 13, 2023 Pre-op diagnosis: Kidney disease requiring dialysis Post-op diagnosis: Same Post-op findings: Normal vascular anatomy Procedure done: Insertion of right IJ tunneled dialysis catheter Implants: Tunneled dialysis catheter Surgeon: Tex Gomez MD [employer]ier Structural Glass: KRANTHI OR Staff Estimated blood loss: 10 Complications: None Brief History: 72-year-old female admitted to the hospital with altered mental status and apparent fluid overload, was noted to have CYNTHIA on CKD, I was consulted for a tunneled dialysis catheter as it was deemed that the patient will need long-term dialysis. Procedure: Patient was brought into the OR. She was placed in the supine position. Moderate anesthesia sedation was given. The right neck and chest was prepped and draped in the usual sterile fashion. Timeout was conducted. I then identified the right IJ vein with ultrasound, proceeded to inject local anesthesia on the skin surrounding the vein, I then cannulated the vein with a 18-gauge needle under direct ultrasound guidance, the needle tip was seen entering the vein and immediate return of blood was noted, a wire was advanced to the vein and the needle removed, the wire position was verified with ultrasound and also with fluoroscopy. The wire was then clamped to the drapes and I placed my attention to the chest. I made 0.5 cm incision about 3 cm below the clavicle on the right side. I also made a 0.5 cm incision at the level of the wire insertion site in the neck. I then used a hemostat to create a tunnel between the neck wound and the chest wound. The dialysis catheter was then advanced using the provider tunneler, the cuff of the catheter was noted to be in an adequate position on the subcutaneous tissue. I then proceeded to d ilate the vein tract over the wire under direct fluoroscopic guidance and eventually I advanced a peel-off sheath and introducer under fluoroscopic guidance, after these the introducer and wire were removed leaving the peel-off sheath in place. The tunneled dialysis catheter was then advanced through the peel-off sheath and the sheath was removed leaving the catheter in place. Fluoroscopy confirmed adequate positioning. Arterial and venous lumens were tested for blood return and flushing and were working fine. I have blocked the catheter. The catheter was then fixed to the skin of the patient using #2-0 nylon, the neck wound is then closed with #4-0 Monocryl. Dermabond was applied and a sterile dressing was placed over the catheter. At the end of the procedure all counts were correct. The patient tolerated the procedure well and was transferred to the ICU in guarded but stable condition
--- NOTE | 2023-08-13 16:07 | PM.MISC ---
Miscellaneous Note Purpose of Documentation: Update on patient's status. Note: Right IJ tunneled dialysis catheter in place, can be used as needed.
--- NOTE | 2023-08-13 16:13 | PC.NURSE ---
Pt arrived back to ICU from OR, for HD cath placement. VSS. Pt responds to voice and obeys commands. Temp HD cath still in place in groin. Permanent cath in upper right chest cean, dry and intact.
--- NOTE | 2023-08-13 16:29 | PC.NURSE ---
Spoke with Dr Renee. Keep temp dialysis in until , it is confirmed Permanent HD functions well.
[2023-08-13 16:57] LABS: Glucose Point of Care 171 mg/dL (70-110)
--- NOTE | 2023-08-13 17:13 | PM.PN ---
Vitals/I&O/Wt Last Vital Signs Temp 97.9 F 08/13/23 16:07 Pulse 105 H 08/13/23 16:07 Resp 26 H 08/13/23 16:07 BP 141/85 08/13/23 16:07 Pulse Ox 100 08/13/23 16:07 O2 Del Method Nasal Cannula 08/13/23 16:07 O2 Flow Rate 2 08/13/23 16:07 FiO2 30 08/13/23 07:45 08/13/23 08/13/23 08/13/23 06:59 14:59 22:59 Intake Total 52.7 / 1502.2 Output Total 0 / 0 Balance 52.7 / 1502.2 Weight last 48 hrs Weight 107.683 kg Weight 106.277 kg Physical Exam Const: COMMON NORMALS: no acute distress and patient oriented x3 Resp: COMMON NORMALS: normal respiratory effort, No retractions, No use of accessory muscles and clear to auscultation bilaterally AUSCULTATION: clear to auscultation bilaterally Cardio: COMMON NORMALS: regular rate, regular rhythm, S1 normal heart sound present and S2 normal heart sound present RATE: regular rate RHYTHM: regular rhythm HEART SOUNDS: S1 normal heart sound present and S2 normal heart sound present GI: COMMON NORMALS: Normal to inspection, nondistended, normoactive bowel sounds present and non-tender Extremity: COMMON NORMALS: no calf tenderness and no pedal edema Neuro: COMMON NORMALS: patient oriented x3 Psych: COMMON NORMALS: mental status grossly normal Urinary Catheter Management: Manzanares Latex: Cath Placed During This Visit: yes, but has since been removed by the nurse Reason for Continuing Indwelling Catheter: Accurate Measurement of Urinary Output in Critically Ill Patients Urinary Catheter Date of Insertion: 07/27/23 Urinary Catheter Time of Insertion: 19:45 Date Urinary Catheter Removed: 08/03/23 Time Urinary Catheter Discontinued: 14:30 Manzanares: Cath Placed During This Visit: yes, but has since been removed by the nurse Reason for Continuing Indwelling Catheter: Accurate Measurement of Urinary Output in Critically Ill Patients Date Urinary Catheter Removed: 08/11/23 Time Urinary Catheter Discontinued: 14:00 Data 08/13/23 04:06 08/13/23 04:06 Micro: Microbiology 08/06/23 07:50 Fungal Smear - Preliminary Sputum - Endotracheal Tube Aspirate A&P Assessment and plan (1) COPD (chronic obstructive pulmonary disease): Qualifiers: COPD type: unspecified COPD Qualified Code(s): J44.9 - Chronic obstructive pulmonary disease, unspecified (2) Acute and chronic respiratory failure with hypoxia: (3) PNA (pneumonia): (4) Pleural effusion: (5) CHF (congestive heart failure): acute on chronic with preserved EF Qualifiers: Heart failure type: diastolic Heart failure chronicity: acute on chronic Qualified Code(s): I50.33 - Acute on chronic diastolic (congestive) heart failure (6) Ventilator dependence: (7) Respiratory failure: (8) Acute respiratory failure with hypoxia and hypercarbia: (9) Respiratory acidosis: (10) Multiorgan failure: Plan 72-year-old lady with COPD, CHF, immunocompromised on Humira ,currently admitted to the hospital with acute on chronic hypoxic respiratory failure with multiple recent hospital admissions for the same reason.Recent chest x-rays and CAT scans have shows bilateral infiltrates which may represent persisting pneumonic infiltrates. Hospital course has been notable for ventilator dependent respiratory failure, with acute worsening on August 02, 2023. # Acute on chronic hypoxic respiratory failure, resolving Likely multifactorial relating to persistent pneumonic infiltrates versus pulmonary edema versus acute aspiration event on August 02. Recent chest x-rays and CAT scans have shows bilateral infiltrates which have been persistent over the past month. Status post bronchoscopy on 08/06/2023. Pending respiratory cultures from [facility]. Pending PJP PCR, AFB culture and MTB PCR from August 06, 2023 evaluation ongoing for opportunistic pneumonia Thus far evaluation has been significant for elevated beta glucan at 123. While this remains nonspecific, given that patient is immunocompromised, has been on multiple steroids over the past month for COPD exacerbations, clinical suspicion for pneumocystis pneumonia. Patient started empiric Bactrim treatment at PJP dosing on July 31, 2023.Currently renally dosed at Bactrim 2 tabs p.o. daily. This has been complicated by development of acute renal failure, creatinine trending up to 2.3 and persisting hyponatremia with following sodium down to 126 today. off Bactrim. off methylprednisolone 40 mg IV every 8 hours, again for presumptive PJP treatment while awaiting PCR results. Titrate down to every 12 hours. She is on Humira, evaluation ongoing to rule out TB. AFB smear negative x 1 from July 27, 2023, positive specimens unable to be sent out. Now collected from [facility] performed on August 06, 2023. MTB PCR pending from [facility]. Previously submitted from sputum was declined as it was not a satisfactory specimen. Negative QuantiFERON, also previously negative from 2019. Reports history of PPD positivity which were deemed to be false positives Negative serum Aspergillus galactomannan Negative histoplasma and Coccidioides serology. Patient denies any history of recent travel. She has noted to have bilateral pleural effusions additionally, thoracentesis was attempted on her most recent admission for diagnostic purposes, however there was insufficient fluid to proceed. b-d glucan weakly positive. negative respiratory viral panel. Echocardiogram from July 01, 2023 showed normal left ventricular size systolic function and wall thickness without regional wall motion abnormalities. LVEF of 65%. Aortic valve sclerosis without stenosis. s/p Zosyn 07/25-08/03; then 08/05- s/p vancomycin 07/24-07/30; then 08/05-08/07 #Gram-positive bacteremia, on 08/02 identified as Staph hominis 1/2 cutures likely contaminant blood cx 08/03 negative to date off vancomycin Respiratory and blood cultures negative for MRSA #Acute kidney injury, prerenal possibly ATN. Currently on dialysis Appreciate nephrology recommendations off Bactrim CBC without any peripheral eosinophils, no rash, lower possibility of dress syndrome #Acute on chronic diasotlic HF Previously on Bumex, now on dialysis , going for permacath placement #Immunocompromised, on adalimumab, methrotrexate outpatient #A-fib with RVR Currently on amiodarone infusion Discontinue infusion. Changed to amiodarone 400 mg via NG tube on heparin drip #Acute on chronic anemia Hemoglobin 9.1. Trend closely. Labs do not appear to have been drawn this morning for CBC. Unclear why. ? Protonix IV twice daily to continue serum sodium 128, monitor Full Code DVT PPX: SCDs. GI ppx: protonix 40 IV BID Prognosis is poor. Nursing staff and updated bedside in a lot of detail. All questions were answered to his satisfaction. Attestations Medical Necessity Statement*: Patient requires hospitalization for respiratory failure, end-stage renal disease Diagnoses Chronic obstructive pulmonary disease, unspecified COPD type J44.9 COPD type: unspecified COPD Acute and chronic respiratory failure with hypoxia J96.21 PNA (pneumonia) J18.9 Pleural effusion J90 Acute on chronic diastolic congestive heart failure I50.33 Heart failure type: diastolic Heart failure chronicity: acute on chronic Ventilator dependence Z99.11 Respiratory failure J96.90 Acute respiratory failure with hypoxia and hypercarbia J96.01; J96.02 Respiratory acidosis E87.29 Multiorgan failure
[2023-08-13] MEDS: nystatin powder 15 gm Btl 1 APPLIC TOPICAL ×2 (17:28→18:46)
--- NOTE | 2023-08-13 17:56 | ANE.PACU2 ---
Inpatient post-anesthesia follow up: Airway intact: Yes Vital signs: Temperature 97.9 F Pulse Rate 105 Respiratory Rate 26 Blood Pressure 141/85 Pulse Oximetry 100 Oxygen Delivery Me thod Nasal Cannula Oxygen Flow Rate 2 Fraction of Inspir ed Oxygen 30 Hydration adequate: Yes Nausea and vomiting: No Pain level: 2 Mental status: Baseline
--- NOTE | 2023-08-13 19:01 | PC.NURSE ---
Shift summary: Pt rested in be throughout the shift. She was on BiPap at 30% this am, switched to Nasal cannula shortly before 0900. She is using 2lpm. She was NPo unit HD permanent cath insertion. She missed breakfast and lunch. HD cath insertion 1600, pt tolerated well. HD cath is upper right chest, site is slightly oozy at end of shift and bruising starting to develop. Temporary HD cath in right groin remains until after the permanent one is verified to be patent. She has been incontinent of urine tiwce this shift. Fecal tube remains in place, Stool noted to be leaking out around off and on entire sift. PEricare provided and zinc oxide applied. She ate her entire dinner this evening.
[2023-08-13] MEDS: atorvastatin 40 mg Tablet 80 MG PO (20:14)
[2023-08-13] MEDS: hyDRALAzine 25 mg Tablet PO (20:14)
[2023-08-13 23:40] LABS: Glucose Point of Care 200 mg/dL (70-110)
[2023-08-14] VITALS (30 sets, daily range): BP systolic 127–169; BP diastolic 62–127; PULSE 65–108; RESP 16–42; TEMP 36.5–36.9; O2SAT 97–100
[2023-08-14] MEDS: chlorhexidine gluconate 4% Btl 118 mL 1 APPLIC TOPICAL (03:27)
--- NOTE | 2023-08-14 04:50 | PC.NURSE ---
Void: No romero catheter in place. Large void noted in bed, unable to measure.
[2023-08-14] MEDS: pyridostigmine 60 mg Tablet PO (05:21)
[2023-08-14] MEDS: levothyroxine 150 mcg Tablet PO (05:21)
[2023-08-14] MEDS: duloxetine 60 mg Capsule PO (05:21)
[2023-08-14 05:27] LABS: Glucose Point of Care 176 mg/dL (70-110)
[2023-08-14] MEDS: insulin lispro 100 unit/1 mL SUBCUT ×3 (05:29→18:57)
[2023-08-14 06:07] LABS: Basophils % 0.1 %; Eosinophils % 0.4 %; Hematocrit 31.2 % (36-47); Lymphocytes # 0.7 10^3/uL (0.8-4.8); Lymphocytes % 9.2 %; Mean Corpuscular HGB Conc 29.8 g/dL (30-55); Mean Corpuscular Hemoglobin 26.3 pg (27-33); Mean Corpuscular Volume 88.4 fl (85-98); Mean Platelet Volume 9.6 fL (7.4-10.4); Monocytes # 0.8 10^3/uL (0.2-0.9); Monocytes % 9.9 %; Neutrophils % 78.8 %; Nucleated Red Blood Cells % 0.3 %; Platelet Count 195 10^3/cmm (157-399); Red Blood Count 3.53 10^6/uL (3.85-5.65); Red Cell Distribution Width 17.9 % (12.1-15.1); White Blood Count 7.61 10^3/uL (3.29-11.43)
[2023-08-14 06:30] LABS: Alanine Aminotransferase 29 U/L (0-33); Alkaline Phosphatase 91 U/L (35-105); Anion Gap 14.6 (5-19); Aspartate Amino Transferase 23 U/L (0-32); Blood Urea Nitrogen 56 mg/dL (8-23); Calcium 9.5 mg/dL (8.5-10.5); Carbon Dioxide 25 mmol/L (22-29); Chloride 96 mmol/L (98-107); Globulin 2.9 g/dL (1.3-4.6); Glucose 161 mg/dL (65-115); Magnesium 1.8 mg/dL (1.7-2.3); Osmolality Calculated 291 mOsm/kg (285-295); Phosphorus 4.3 mg/dL (2.5-4.5); Potassium 4.6 mmol/L (3.5-5.1); Sodium 131 mmol/L (136-145); Total Bilirubin 0.3 mg/dL (0.15-1.2); Total Protein 5.9 g/dL (6.6-8.7)
[2023-08-14 06:38] LABS: NT Pro B Type Natriuretic Pept 6868 pg/mL (0-125)
[2023-08-14] MEDS: ipratropium-albuterol 3 mL Neb INHALATION ×3 (07:34→15:01)
[2023-08-14] MEDS: metoprolol tartrate 50 mg Tablet 25 MG PO ×2 (09:50→20:36)
[2023-08-14] MEDS: amiodarone 200 mg Tablet 400 MG PO ×2 (09:50→18:36)
[2023-08-14] MEDS: pantoprazole 40 mg SDV IVP ×2 (09:50→18:36)
[2023-08-14] MEDS: hyDRALAzine 25 mg Tablet PO ×2 (09:50→20:37)
[2023-08-14] MEDS: lidocaine 5% Patch 1 PATCH TOPICAL (09:51)
[2023-08-14] MEDS: predniSONE 20 mg Tablet 40 MG PO (09:51)
[2023-08-14] MEDS: nystatin powder 15 gm Btl 1 APPLIC TOPICAL ×2 (09:52→18:36)
[2023-08-14] MEDS: chlorhexidine gluconate 0.12% Btl 473 mL 15 ML MUCOUS MEM (09:52)
--- NOTE | 2023-08-14 10:49 | P.PN_ITS ---
Subjective 2 Subjective: denies nay complaints Medications: Reviewed: Yes Vitals/I&O/Wt Last Vital Signs Temp 98.4 F 08/14/23 08:00 Pulse 85 08/14/23 10:00 Resp 21 H 08/14/23 10:00 BP 149/86 08/14/23 10:00 Pulse Ox 99 08/14/23 10:00 O2 Del Method BiPAP 08/14/23 07:34 O2 Flow Rate 2 08/13/23 21:00 FiO2 30 08/14/23 07:35 08/13/23 08/14/23 08/14/23 22:59 06:59 14:59 Intake Total 475 / 475 250 / 250 Balance 475 / 475 250 / 250 Weight last 48 hrs Weight 107.683 kg Physical Exam 2 Narrative: awaken, alert S1S2 RRR per report No edema Urinary Catheter Management: Manzanares Latex: Cath Placed During This Visit: yes, but has since been removed by the nurse Reason for Continuing Indwelling Catheter: Accurate Measurement of Urinary Output in Critically Ill Patients Urinary Catheter Date of Insertion: 07/27/23 Urinary Catheter Time of Insertion: 19:45 Date Urinary Catheter Removed: 08/03/23 Time Urinary Catheter Discontinued: 14:30 Manzanares: Cath Placed During This Visit: yes, but has since been removed by the nurse Reason for Continuing Indwelling Catheter: Accurate Measurement of Urinary Output in Critically Ill Patients Date Urinary Catheter Removed: 08/11/23 Time Urinary Catheter Discontinued: 14:00 Data 08/14/23 05:48 08/14/23 05:48 Micro: Microbiology 08/13/23 21:28 Occult Blood (FIT) - Final Stool Routine Collection 08/06/23 07:50 Fungal Smear - Preliminary Sputum - Endotracheal Tube Aspirate A&P Assessment and plan (1) CYNTHIA (acute kidney injury): Plan 1. Acute on chronic kidney disease stage III: Baseline creatinine is in the 1 range, now has severe CYNTHIA with a creatinine of 3.9 and volume overload, patient became anuric No significant response to diuretics. s/p temporary HD catheter placement and initiated hemodialysis for volume management. - s/p PC placement yesterday - Renal fxn seems to be recovering slowly, will do gentle HD for now , expect full renal recovery in few weeks 2. Acute on chronic respiratory failure: Multifactorial, extubated , off pressors 3. Sepsis, secondary to pneumonia, on broad-spectrum antibiotics 4. A-fib 5. Morbid obesity Patient evaluated using audiovisual cart. Time spent 20 minutes. Attestations 2 Medical Necessity Statement*: per medicine Coding Level of Care Code Acute Code for [facility] Fwd Diagnoses CYNTHIA (acute kidney injury) N17.9
--- NOTE | 2023-08-14 11:51 | P.PN_ITS ---
Subjective 2 Subjective: -Patient mentation continues to improve -able to eat with with assistance -got her permacath yesterday and to see if it works with today HD - Other labs and imaging reviewed -she can be transferred to floor Medications: Reviewed: Yes Vitals/I&O/Wt Last Vital Signs Temp 98.4 F 08/14/23 08:00 Pulse 82 08/14/23 11:21 Resp 18 08/14/23 11:21 BP 149/86 08/14/23 10:00 Pulse Ox 99 08/14/23 11:21 O2 Del Method Nasal Cannula 08/14/23 11:21 O2 Flow Rate 3 08/14/23 11:21 FiO2 30 08/14/23 07:35 08/13/23 08/14/23 08/14/23 22:59 06:59 14:59 Intake Total 475 / 475 250 / 250 Balance 475 / 475 250 / 250 Weight last 48 hrs Weight 237 lb 6.4 oz Physical Exam 2 Narrative: General: Alert oriented and following commands, HEENT: conj clear, EOMI, PERRL, mmm, Neck: supple, no meningismus Heme: no cervical LAP Respiratory: Inspection: No visible deformity of the chest wall Palpation: Trachea is mildly deviated to the right, bilateral symmetric expansion Percussion: Bilateral tympanic percussion note both anterior and posteriorly Auscultation: Improved crackles Cardiovascular: rrr, nl s1s2, no mrg Abdomen: soft, nt, nd, no r/g, bs+ Extremities: pulses +, 1+ pitting pedal edema, no c/c : no CVA tenderness Skin: intact, no rash MSK: no back or neck pain Neurologic: grossly intact Urinary Catheter Management: Manzanares Latex: Cath Placed During This Visit: yes, but has since been removed by the nurse Reason for Continuing Indwelling Catheter: Accurate Measurement of Urinary Output in Critically Ill Patients Urinary Catheter Date of Insertion: 07/27/23 Urinary Catheter Time of Insertion: 19:45 Date Urinary Catheter Removed: 08/03/23 Time Urinary Catheter Discontinued: 14:30 Manzanares: Cath Placed During This Visit: yes, but has since been removed by the nurse Reason for Continuing Indwelling Catheter: Accurate Measurement of Urinary Output in Critically Ill Patients Date Urinary Catheter Removed: 08/11/23 Time Urinary Catheter Discontinued: 14:00 Data 08/14/23 05:48 08/14/23 05:48 Other Labs: Radiology Impressions Chest CTA 08/02/23 17:42 IMPRESSION: 1. Negative for pulmonary embolus. 2. Endotracheal tube and enteric tube seen in place. 3. Right-sided central venous catheter. 4. Large bilateral pleural effusions. 5. Several enlarged mediastinal lymph nodes measuring up to 17 mm, nonspecific. 6. Cardiomegaly. 7. Coronary artery atherosclerotic calcifications. 8. Cirrhotic liver. 9. Hepatic steatosis. 10. Cholecystectomy. 11. Bilateral right greater than left airspace infiltrates. 12. Left kidney 16 mm exophytic probable hyperdense cyst, nonemergent ultrasound could further characterize this. 13. Main pulmonary artery is somewhat prominent which can be a finding of pulmonary artery hypertension. COMMENTS: Consistent with the [place] [employer]'s Incidental Findings Committee white paper (J Am Cesar Radiol 2018): Any incidental renal lesion less than 1 cm or classified as too small to characterize, or any incidental cystic renal lesion characterized as simple-appearing, is likely benign. No follow-up imaging is recommended for these lesions per consensus recommendations based on imaging criteria. Abdomen X-Ray 08/04/23 14:43 IMPRESSION: Air-filled structure positioned in the midline lower abdomen may represent a low-lying stomach. Dilated bowel loop/obstruction cannot be excluded. Laboratory Results WBC 7.61 10^3/uL (3.29-11.43) 08/14/23 05:48 RBC 3.53 10^6/uL (3.85-5.65) L 08/14/23 05:48 Hgb 9.30 g/dL (11.27-16.99) L 08/14/23 05:48 Hct 31.2 % (36-47) L 08/14/23 05:48 MCV 88.4 fl (85-98) 08/14/23 05:48 MCH 26.3 pg (27-33) L 08/14/23 05:48 MCHC 29.8 g/dL (30-55) L 08/14/23 05:48 RDW 17.9 % (12.1-15.1) H 08/14/23 05:48 Plt Count 195 10^3/cmm (157-399) 08/14/23 05:48 MPV 9.6 fL (7.4-10.4) 08/14/23 05:48 Neut % (Auto) 78.8 % 08/14/23 05:48 Lymph % (Auto) 9.2 % 08/14/23 05:48 Starke % (Auto) 9.9 % 08/14/23 05:48 Eos % (Auto) 0.4 % 08/14/23 05:48 Baso % (Auto) 0.1 % 08/14/23 05:48 Neut # (Auto) 6.00 10^3/uL (1.8-7.7) 08/14/23 05:48 Lymph # (Auto) 0.7 10^3/uL (0.8-4.8) L 08/14/23 05:48 Starke # (Auto) 0.8 10^3/uL (0.2-0.9) 08/14/23 05:48 Eos # (Auto) 0.0 10^3/uL (0.0-0.8) 08/14/23 05:48 Baso # (Auto) 0.0 10^3/uL (0.0-0.1) 08/14/23 05:48 Nucleated RBC % (auto) 0.3 % 08/14/23 05:48 Nucleated RBCs # 0.0 /100WBC 08/14/23 05:48 PT 14.70 SECONDS (12.1-14.9) 08/04/23 04:55 INR 1.11 (0.8-1.2) 08/04/23 04:55 APTT 51.3 SECONDS (23.9-36.7) H 08/12/23 20:20 Fibrinogen 556 mg/dL (174-498) H 08/02/23 17:51 Fibrin Degrad Products <5 mcg/mL (LESS THAN 5) 08/02/23 17:58 D-Dimer 0.74 ug/mLFEU (0-0.59) H 08/02/23 17:51 Specimen Type Arterial 08/08/23 16:15 Sample Site Brachial, left 08/08/23 16:15 ABG pH 7.35 (7.35-7.45) 08/08/23 16:15 ABG pCO2 46.2 mmHg (35-45) H 08/08/23 16:15 ABG pO2 68.6 mmHg (80.0-100.0) L 08/08/23 16:15 ABG PO2/FiO2 Ratio 0 08/08/23 16:15 ABG HCO3 25.3 mmol/L (22-26) 08/08/23 16:15 ABG O2 Saturation 94.2 08/08/23 08:35 ABG Base Excess -0.5 mmol/L (-2.0-2.0) 08/08/23 16:15 Memo Test Pos 08/08/23 16:15 A-a O2 Gradient 10.2 mmHg (5-10) H 08/08/23 08:35 Hematocrit 22.8 % (37-47) L 08/08/23 16:15 Hgb O2 Saturation 91.2 % (95-100) L 08/08/23 08:35 Carboxyhemoglobin 1.7 %THgb (0.4-20.1) 08/08/23 08:35 Methemoglobin 1.5 % (0.4-1.5) 08/08/23 08:35 Total Hemoglobin 7.7 g/dL (12-16) L 08/08/23 08:35 Sodium 130.0 mmol/L (131-143) L 08/08/23 08:35 Potassium 3.6 mmol/L (3.5-5.0) 08/08/23 08:35 Glucose 122.0 mg/dL (70-115) H 08/08/23 08:35 Ionized Calcium 1.2 mmol/L (1.1-1.4) 08/08/23 08:35 O2 Delivery Device Bipap 08/08/23 16:15 O2 Liters/Min 5.0 % 07/25/23 15:12 FiO2 30.0 % 08/08/23 16:15 Tidal Volume 0.40 08/07/23 04:33 PEEP 8.0 cmH20 08/04/23 14:50 Facility Sales And Admin ID Gd 08/08/23 16:15 Sodium 131 mmol/L (136-145) L 08/14/23 05:48 Potassium 4.6 mmol/L (3.5-5.1) 08/14/23 05:48 Chloride 96 mmol/L (98-107) L 08/14/23 05:48 Carbon Dioxide 25 mmol/L (22-29) 08/14/23 05:48 Anion Gap 14.6 (5-19) 08/14/23 05:48 BUN 56 mg/dL (8-23) H 08/14/23 05:48 Creatinine 2.4 mg/dL (0.5-0.9) H 08/14/23 05:48 GFR Calculation Not Reportable 08/14/23 05:48 Glucose 161 mg/dL (65-115) H 08/14/23 05:48 POC Glucose 176 mg/dL (70-110) H 08/14/23 05:24 Calculated Osmolality 291 mOsm/kg (285-295) 08/14/23 05:48 Lactate 3.6 mmol/L (0.5-2.2) H 08/04/23 15:18 Calcium 9.5 mg/dL (8.5-10.5) 08/14/23 05:48 Phosphorus 4.3 mg/dL (2.5-4.5) 08/14/23 05:48 Magnesium 1.8 mg/dL (1.7-2.3) 08/14/23 05:48 Iron 50 ug/dL (37-145) 08/04/23 04:45 TIBC 273 mcg/dl 08/04/23 04:45 % Saturation 18.3 % (20-50) L 08/04/23 04:45 Unsat Iron Binding 223 ug/dL (112-347) 08/04/23 04:45 Ferritin 110 ng/mL (15-150) 08/04/23 04:45 Total Bilirubin 0.3 mg/dL (0.15-1.2) 08/14/23 05:48 AST 23 U/L (0-32) 08/14/23 05:48 ALT 29 U/L (0-33) 08/14/23 05:48 Alkaline Phosphatase 91 U/L (35-105) 08/14/23 05:48 Troponin T Baseline 43 ng/L (0-10) H 08/02/23 17:51 Troponin T 120 Minute 47.08 ng/L (0-10) H 08/02/23 20:05 Delta Troponin T 4.08 ABS# (0-10) 08/02/23 20:05 Troponin T Hi Sens 6Hr 47.70 ng/L (0-10) H 08/02/23 23:47 Troponin T Hi Sens 6Hr Delta 4.70 ng/L (0-12) 08/02/23 23:47 NT-Pro-B Natriuret Pep 6868 pg/mL (0-125) H 08/14/23 05:48 Total Protein 5.9 g/dL (6.6-8.7) L 08/14/23 05:48 Albumin 3.0 g/dL (3.5-5.2) L 08/14/23 05:48 Globulin 2.9 g/dL (1.3-4.6) 08/14/23 05:48 Vitamin B12 799 pg/mL (232-1245) 08/04/23 04:45 25-OH Vitamin D Total 35 ng/mL (30-100) 08/04/23 04:45 Procalcitonin 0.47 ng/mL (0-0.5) 08/04/23 04:45 Urine Color Dark yellow (Yellow) 07/25/23 11:54 Urine Appearance Hazy (CLEAR) A 07/25/23 11:54 Urine pH 5 (5-7) 07/25/23 11:54 Ur Specific [place] 1.020 (1.005-1.030) 07/25/23 11:54 Urine Protein Trace (Negative) 07/25/23 11:54 Urine Glucose (UA) Norm (Normal) 07/25/23 11:54 Urine Ketones Negative (Negative) 07/25/23 11:54 Urine Blood Neg (Negative) 07/25/23 11:54 Urine Nitrate Negative (Negative) 07/25/23 11:54 Urine Bilirubin Neg (Negative) 07/25/23 11:54 Urine Urobilinogen Norm mg/dL (Negative) 07/25/23 11:54 Ur Leukocyte Esterase Negative (Negative) 07/25/23 11:54 Urine RBC 0-4 /hpf (0-2) H 07/25/23 11:54 Urine WBC 15-25 /hpf (0-5) H 07/25/23 11:54 Ur Squamous Epith Cells 10-15 /hpf (0-5) H 07/25/23 11:54 Ur Transition Epith Cell 5-10 /hpf 07/25/23 11:54 Amorphous Sediment Not Reportable 07/25/23 11:54 Urine Bacteria Trace /hpf (NONE) 07/25/23 11:54 Hyaline Casts 5-10 /lpf H 07/25/23 11:54 Urine Mucus Trace /hpf 11/29/23 11:54 Bronch Specimen Source Right lower lobe 08/06/23 07:50 Bronchial Fluid Color Slight pink 08/06/23 07:50 Bronchial Fluid Appearance Hazy (CLEAR) 08/06/23 07:50 Bronch Cells Counted 200 08/06/23 07:50 Bronchial Neutrophils 29.00 % (0.9-2.3) H 08/06/23 07:50 Bronchial Lymphocytes 3.00 % (10.71-12.91) L 08/06/23 07:50 Bronchial Eosinophils 1.00 % (0.13-0.25) H 08/06/23 07:50 Bronchial Macrophages 67.00 % (83.6-86.8) L 08/06/23 07:50 Bronchial Diff Comment Yes 08/06/23 07:50 Vancomycin Trough 12.0 ug/mL (10-15) 07/28/23 14:08 Digoxin 0.6 ng/mL (0.6-1.2) 08/04/23 04:45 C. difficile Tox (PCR) Not detected (NOT DETECTED) 08/09/23 14:35 Coccidioides immitis CF <1:2 07/26/23 08:55 Coronavirus 229E (PCR) Not detected (NOT DETECT) 07/25/23 15:47 Hep Bs Antigen Non-reactive (Nonreactive) 08/05/23 03:45 Hep Bs Antibody < 3.5 (11.5-1000) L 08/05/23 03:45 Histo Mycel H Protein Negative 07/26/23 08:55 Histo Mycel M Protein Negative 07/26/23 08:55 U Histop Galact Ag Qnt <0.2 ng/mL 07/25/23 11:54 Influenza Type A Ag negative (Negative) 07/25/23 15:47 Influenza Type B Ag negative (Negative) 07/25/23 15:47 Myco Comp PCR Spec Srce Sputum 08/06/23 11:00 Pneumocystis Source Right lower lobe 08/06/23 07:50 Pneumocyst jirovecii PCR Not detected 08/06/23 07:50 Aspergillus Source Whole blood 08/06/23 03:36 Aspergillus Ag (EIA) Not detected 08/06/23 07:50 Aspergillus sp (PCR) Not detected 08/06/23 03:36 A. fumigatus (PCR) Not detected 08/06/23 03:36 A. galactomannan Ag EIA Not detected 07/26/23 08:55 A. galactomannan Ag Idx <0.50 08/06/23 07:50 A. terreus (PCR) Not detected 08/06/23 03:36 SARS-CoV-2 (PCR) Not detected (NOT DETECT) 07/25/23 15:47 SARS-CoV-2 Ag (Rapid) negative (Negative) 08/08/23 14:15 MRSA (PCR) Not detected (NOT DETECTED) 08/04/23 15:18 TB (QFT) Gold In Tube Negative (NEGATIVE) 07/26/23 08:55 TB Test (QFT) Nil 0.04 IU/mL 07/26/23 08:55 TB Test (QFT) Mitogen 8.86 IU/mL 07/26/23 08:55 TB Test Mitogen - Nil 0.00 IU/mL 07/26/23 08:55 TB Test TB -Nil <0.00 IU/mL 07/26/23 08:55 Beta-(1,3)-D-Glucan 123 pg/mL H 07/26/23 08:55 B-(1,3)-D-Glucan Intrp Positive A 07/26/23 08:55 M.tuberculosis Cmplx PCR Not detected 08/06/23 11:00 Misc Test Reference Cancelled 07/30/23 11:20 Blood Type O Positive 08/09/23 12:31 Rho(D) Type Rh positive 08/09/23 12:31 Antibody Screen Negative 08/09/23 12:31 Crossmatch See Detail 08/09/23 12:31 Micro: Microbiology 08/13/23 21:28 Occult Blood (FIT) - Final Stool Routine Collection 08/06/23 07:50 Fungal Smear - Preliminary Sputum - Endotracheal Tube Aspirate A&P Assessment and plan (1) Acute respiratory failure with hypoxia and hypercarbia: (2) Ventilator dependence: (3) CHF (congestive heart failure): Qualifiers: Heart failure type: diastolic Heart failure chronicity: acute on chronic Qualified Code(s): I50.33 - Acute on chronic diastolic (congestive) heart failure (4) Seronegative rheumatoid arthritis of both hands: (5) High risk medication use: (6) Morbid obesity: (7) Chronic atrial fibrillation: (8) CYNTHIA (acute kidney injury): (9) Amber albicans infection: Plan # Acute hypoxic/hypercapnic respiratory failure in patient with underlying COPD, diastolic heart failure, chronic bilateral pleural effusions, morbid obesity- significantly oxygenation-currently down to 3 L nasal cannula and BiPAP at nighttime # History of rheumatoid arthritis on Humira and immunosuppressive medications- rule out underlying opportunistic infections # CYNTHIA on CKD-currently off pressor # Chronic L-xdh-iqvzsxmya rate controlled-on p.o. amiodarone; heparin drip for anticoagulation # Hypokalemia and hypomagnesemia-normal- # Large bilateral pleural effusions-Improved with dialysis #Sputum cultures and urine cultures positive for Amber albicans-patient is currently on fluconazole # Severe deconditioning -Successfully extubated to BiPAP and currently on 30% FiO2-significant improvement in mentation-but she is extremely deconditioned-need aggressive physical therapy and rehab -CTA 08/02/2023-ruled out PE; large bilateral pleural effusions; very difficult to do ultrasound-guided thoracentesis given her body habitus; however she was started on hemodialysis -Off pressors -Bronchoscopy 10/07/2022-revealed copious amount of secretions blocking right lower lobe subsegments-they were suctioned out and BAL sent for various studies - Sugars are moderately controlled-On insulin scale coverage -workup so far negative for respiratory viral panel, COVID-19,; Given her immunosuppression for rheumatoid arthritis-extensive workup was sent -Amiodarone IV switched to oral amiodarone; she is started on heparin drip for anticoagulation; she was not on oral anticoagulation as outpatient due to high risk for falls -Currently she is awaiting permacath placement-will decide about outpatient oral anticoagulation after permacath placement - currently on oral feeds and advance as tolerated - So for beta D glucan weekly positive-PCP PCR, histoplasma antigen, coccidioidomycosis--negative; on tapering dose of steroids-on atovaquone prophylaxis - She is in airborne isolation-sputum for MTB-is pending; TB QuantiFERON is negative -Hemodialysis as per renal team ICU CHECKLIST: Problem list updated Verbal orders reviewed and signed Code Status: Full code Disposition: ICU ---> to floor. Critically ill: Yes MD discussed with: Hospitalist, RN, RT Prognosis: Guarded Family: updated about medical condition, plan of management, prognosis at bedside Analgesia: N/A Glycemic Control: Scale coverage Nutrition: oral feeds with assistance and advance as tolerated Restraint Renewal (within 24 hrs): Yes Ulcer Prophylaxis: PPI Chemical Thromboprophylaxis: Prophylaxis: Heparin Mechanical Thromboprophylaxis: SCD Need for Manzanares catheter: Yes for urine output monitoring Attestations 2 Medical Necessity Statement*: Continued admission, currently on a heparin drip. Needs permacath placement . Continued assessment of mental status. Time Spent in Patient Care: Greater than 35 minutes (>than 50% of time spent in counselling and/or direct pt care on unit) . Critical Care Time: The high probability of a clinically significant, sudden or life threatening deterioration of the patient's [neurologic/pulmonary/cardiac] system(s) required my full and direct attention, intervention and personal management. The critical care time is as shown. This time is in addition to time spent performing any reported procedures but includes the following: [x] Data and vital sign review and interpretation [x] Patient assessment, examination and intervention [x] Documentation [x] Medication orders and management Critical Care Time (min): 45 Coding Level of Care Code Acute Code for [facility] Fwd Diagnoses Acute respiratory failure with hypoxia and hypercarbia J96.01; J96.02 Ventilator dependence Z99.11 Acute on chronic diastolic congestive heart failure I50.33 Heart failure type: diastolic Heart failure chronicity: acute on chronic Seronegative rheumatoid arthritis of both hands M06.041; M06.042 High risk medication use Z79.899 Morbid obesity E66.01 Chronic atrial fibrillation I48.20 CYNTHIA (acute kidney injury) N17.9 Amber albicans infection B37.9 Time Spent (min) 45
--- NOTE | 2023-08-14 13:02 | PM.PN ---
Subjective Subjective: Postoperative day 1 status post right permacath placement. Patient is stable, no apparent surgical complications. Vitals/I&O/Wt Last Vital Signs Temp 98.4 F 08/14/23 08:00 Pulse 83 08/14/23 12:00 Resp 22 H 08/14/23 12:00 BP 165/69 08/14/23 12:00 Pulse Ox 100 08/14/23 12:00 O2 Del Method Nasal Cannula 08/14/23 11:21 O2 Flow Rate 3 08/14/23 11:21 FiO2 30 08/14/23 07:35 08/13/23 08/14/23 08/14/23 22:59 06:59 14:59 Intake Total 475 / 475 250 / 250 Balance 475 / 475 250 / 250 Weight last 48 hrs Weight 237 lb 6.4 oz Physical Exam Neck/C-Spine: OTHER: Neck and chest incision sites are clean dry and intact, no evidence of active bleeding or oozing. Urinary Catheter Management: Manzanares Latex: Cath Placed During This Visit: yes, but has since been removed by the nurse Reason for Continuing Indwelling Catheter: Accurate Measurement of Urinary Output in Critically Ill Patients Urinary Catheter Date of Insertion: 07/27/23 Urinary Catheter Time of Insertion: 19:45 Date Urinary Catheter Removed: 08/03/23 Time Urinary Catheter Discontinued: 14:30 Manzanares: Cath Placed During This Visit: yes, but has since been removed by the nurse Reason for Continuing Indwelling Catheter: Accurate Measurement of Urinary Output in Critically Ill Patients Date Urinary Catheter Removed: 08/11/23 Time Urinary Catheter Discontinued: 14:00 Data 08/14/23 05:48 08/14/23 05:48 Micro: Microbiology 08/13/23 21:28 Occult Blood (FIT) - Final Stool Routine Collection 08/06/23 07:50 Fungal Smear - Preliminary Sputum - Endotracheal Tube Aspirate A&P Assessment and plan (1) Morbid obesity: (2) CYNTHIA (acute kidney injury): Plan Excellent progress after placement of a permacath. Catheter can be used as needed for dialysis, once catheter is verified to be working well for dialysis, temporary dialysis catheter can be removed. Patient can follow-up in my clinic in 2 weeks. Attestations Medical Necessity Statement*: Patient will require continued hospital stay as guided by medical team. Coding Level of Care Code Acute Code for [facility] Fwd Diagnoses Morbid obesity E66.01 CYNTHIA (acute kidney injury) N17.9
--- NOTE | 2023-08-14 16:39 | PC.HD ---
Patient was ok for transfer out of ICU as of this morning, but she has not been assigned a bed yet. Per Dr. Renee, ok for patient to receive dialysis in the dialysis room.
--- NOTE | 2023-08-14 17:07 | P.PN_ITS ---
Subjective 2 Subjective: Patient was seen this morning, she was BiPAP throughout the night and this morning she is alert awake, she is a bit drowsy, awake and follow commands, has no complaints, no fevers, no chills, no cough, plans of moving to [facility], she remains a Cynthia lift, we discussed her working with physical therapy Vitals/I&O/Wt Last Vital Signs Temp 97.7 F 08/14/23 16:37 Pulse 100 08/14/23 16:37 Resp 16 08/14/23 16:37 BP 161/69 08/14/23 16:37 Pulse Ox 97 08/14/23 15:05 O2 Del Method BiPAP 08/14/23 15:01 O2 Flow Rate 3 08/14/23 11:21 FiO2 30 08/14/23 15:05 08/14/23 08/14/23 08/14/23 06:59 14:59 22:59 Intake Total 250 / 250 Balance 250 / 250 Weight last 48 hrs Weight 107.683 kg Physical Exam 2 Const: COMMON NORMALS: no acute distress ORIENTATION/CONSCIOUSNESS: Yes awake Resp: COMMON NORMALS: normal respiratory effort, No retractions, No use of accessory muscles and clear to auscultation bilaterally AUSCULTATION: clear to auscultation bilaterally Cardio: COMMON NORMALS: regular rate, regular rhythm, S1 normal heart sound present and S2 normal heart sound present RATE: regular rate RHYTHM: r egular rhythm HEART SOUNDS: S1 normal heart sound present and S2 normal heart sound present GI: COMMON NORMALS: Normal to inspection, nondistended, normoactive bowel sounds present and non-tender Extremity: COMMON NORMALS: no pedal edema Psych: COMMON NORMALS: mental status grossly normal Urinary Catheter Management: Manzanares Latex: Cath Placed During This Visit: yes, but has since been removed by the nurse Reason for Continuing Indwelling Catheter: Accurate Measurement of Urinary Output in Critically Ill Patients Urinary Catheter Date of Insertion: 07/27/23 Urinary Catheter Time of Insertion: 19:45 Date Urinary Catheter Removed: 08/03/23 Time Urinary Catheter Discontinued: 14:30 Manzanares: Cath Placed During This Visit: yes, but has since been removed by the nurse Reason for Continuing Indwelling Catheter: Accurate Measurement of Urinary Output in Critically Ill Patients Date Urinary Catheter Removed: 08/11/23 Time Urinary Catheter Discontinued: 14:00 Data 08/15/23 06:30 08/15/23 06:30 Micro: Microbiology 08/13/23 21:28 Occult Blood (FIT) - Final Stool Routine Collection 08/06/23 07:50 Fungal Smear - Preliminary Sputum - Endotracheal Tube Aspirate A&P Assessment and plan (1) COPD (chronic obstructive pulmonary disease): Qualifiers: COPD type: unspecified COPD Qualified Code(s): J44.9 - Chronic obstructive pulmonary disease, unspecified (2) Acute and chronic respiratory failure with hypoxia: (3) PNA (pneumonia): (4) Pleural effusion: (5) CHF (congestive heart failure): acute on chronic with preserved EF Qualifiers: Heart failure type: diastolic Heart failure chronicity: acute on chronic Qualified Code(s): I50.33 - Acute on chronic diastolic (congestive) heart failure (6) Ventilator dependence: (7) Respiratory failure: (8) Acute respiratory failure with hypoxia and hypercarbia: (9) Respiratory acidosis: (10) Multiorgan failure: Plan 72-year-old lady with COPD, CHF, immunocompromised on Humira ,currently admitted to the hospital with acute on chronic hypoxic respiratory failure with multiple recent hospital admissions for the same reason.Recent chest x-rays and CAT scans have shows bilateral infiltrates which may represent persisting pneumonic infiltrates. Hospital course has been notable for ventilator dependent respiratory failure, with acute worsening on August 02, 2023. # Acute on chronic hypoxic respiratory failure, resolving Likely multifactorial relating to persistent pneumonic infiltrates versus pulmonary edema versus acute aspiration event on August 02. Recent chest x-rays and CAT scans have shows bilateral infiltrates which have been persistent over the past month. Status post bronchoscopy on 08/06/2023. Pending respiratory cultures from [facility]. Pending PJP PCR, AFB culture and MTB PCR from August 06, 2023 evaluation ongoing for opportunistic pneumonia Thus far evaluation has been significant for elevated beta glucan at 123. While this remains nonspecific, given that patient is immunocompromised, has been on multiple steroids over the past month for COPD exacerbations, clinical suspicion for pneumocystis pneumonia. Patient started empiric Bactrim treatment at PJP dosing on July 31, 2023.Currently renally dosed at Bactrim 2 tabs p.o. daily. This has been complicated by development of acute renal failure, creatinine trending up to 2.3 and persisting hyponatremia with following sodium down to 126 today. off Bactrim. off methylprednisolone 40 mg IV every 8 hours, again for presumptive PJP treatment while awaiting PCR results. Titrate down to every 12 hours. She is on Humira, evaluation ongoing to rule out TB. AFB smear negative x 1 from July 27, 2023, positive specimens unable to be sent out. Now collected from [facility] performed on August 06, 2023. MTB PCR pending from [facility]. Previously submitted from sputum was declined as it was not a satisfactory specimen. Negative QuantiFERON, also previously negative from 2019. Reports history of PPD positivity which were deemed to be false positives Negative serum Aspergillus galactomannan Negative histoplasma and Coccidioides serology. Patient denies any history of recent travel. She has noted to have bilateral pleural effusions additionally, thoracentesis was attempted on her most recent admission for diagnostic purposes, however there was insufficient fluid to proceed. b-d glucan weakly positive. negative respiratory viral panel. Echocardiogram from July 01, 2023 showed normal left ventricular size systolic function and wall thickness without regional wall motion abnormalities. LVEF of 65%. Aortic valve sclerosis without stenosis. s/p Zosyn 07/25-08/03; then 08/05- s/p vancomycin 07/24-07/30; then 08/05-08/07 #Gram-positive bacteremia, on 08/02 identified as Staph hominis 1/2 cutures likely contaminant blood cx 08/03 negative to date off vancomycin Respiratory and blood cultures negative for MRSA #Acute kidney injury, prerenal possibly ATN. Currently on dialysis Appreciate nephrology recommendations off Bactrim CBC without any peripheral eosinophils, no rash, lower possibility of dress syndrome #Acute on chronic diasotlic HF Previously on Bumex, now on dialysis , going for permacath placement #Immunocompromised, on adalimumab, methrotrexate outpatient #A-fib with RVR Currently on amiodarone infusion Discontinue infusion. Changed to amiodarone 400 mg via NG tube on heparin drip #Acute on chronic anemia Hemoglobin 9.1. Trend closely. Labs do not appear to have been drawn this morning for CBC. Unclear why. ? Protonix IV twice daily to continue serum sodium 128, monitor Full Code DVT PPX: SCDs. GI ppx: protonix 40 IV BID Nursing staff and updated bedside in a lot of detail. All questions were answered to his satisfaction. Attestations 2 Medical Necessity Statement*: Patient requires hospitalization CYNTHIA requiring intermittent dialysis, Diagnoses Chronic obstructive pulmonary disease, unspecified COPD type J44.9 COPD type: unspecified COPD Acute and chronic respiratory failure with hypoxia J96.21 PNA (pneumonia) J18.9 Pleural effusion J90 Acute on chronic diastolic congestive heart failure I50.33 Heart failure type: diastolic Heart failure chronicity: acute on chronic Ventilator dependence Z99.11 Respiratory failure J96.90 Acute respiratory failure with hypoxia and hypercarbia J96.01; J96.02 Respiratory acidosis E87.29 Multiorgan failure
--- NOTE | 2023-08-14 18:15 | PC.HD ---
Per director hris's orders, heparin 1000 units loading dose administered via venous port of HD catheter at 1603. Heparin 500 unit maintenance dose administered at 1700. Catheter instilled with 2100 and 2000 units of heparin into the venous and arterial ports of HD catheter, respectively, at treatment termination.
[2023-08-14 18:45] LABS: Glucose Point of Care 215 mg/dL (70-110)
[2023-08-14] MEDS: apixaban 5 mg Tablet PO (20:36)
[2023-08-14] MEDS: atorvastatin 40 mg Tablet 80 MG PO (20:37)
[2023-08-15] VITALS (12 sets, daily range): BP systolic 129–176; BP diastolic 66–88; PULSE 94–114; RESP 17–30; TEMP 36.8–37.6; O2SAT 95–100
[2023-08-15] MEDS: hyDRALAzine 20 mg/mL INJ 1 mL 10 MG IVP (00:12)
[2023-08-15] MEDS: insulin lispro 100 unit/1 mL SUBCUT ×4 (00:13→17:47)
[2023-08-15 00:19] LABS: Glucose Point of Care 287 mg/dL (70-110)
--- NOTE | 2023-08-15 01:16 | PC.NURSE ---
Report was given to Guera CR in [facility]. Patient transferred well and with no incidents.
[2023-08-15] MEDS: duloxetine 60 mg Capsule PO (05:20)
[2023-08-15] MEDS: pyridostigmine 60 mg Tablet PO (05:20)
[2023-08-15] MEDS: levothyroxine 150 mcg Tablet PO (05:21)
[2023-08-15 06:03] LABS: Glucose Point of Care 214 mg/dL (70-110)
[2023-08-15 06:47] LABS: Basophils % 0.1 %; Lymphocytes # 0.4 10^3/uL (0.8-4.8); Lymphocytes % 4.1 %; Mean Corpuscular HGB Conc 30.6 g/dL (30-55); Mean Corpuscular Volume 88.1 fl (85-98); Mean Platelet Volume 9.3 fL (7.4-10.4); Monocytes # 0.7 10^3/uL (0.2-0.9); Monocytes % 7.3 %; Neutrophils # 8.17 10^3/uL (1.8-7.7); Neutrophils % 87.9 %; Nucleated Red Blood Cells % 0 %; Platelet Count 228 10^3/cmm (157-399); Red Blood Count 3.52 10^6/uL (3.85-5.65)
[2023-08-15 07:01] LABS: Alanine Aminotransferase 29 U/L (0-33); Albumin Level 3.2 g/dL (3.5-5.2); Alkaline Phosphatase 120 U/L (35-105); Anion Gap 13.1 (5-19); Aspartate Amino Transferase 26 U/L (0-32); Blood Urea Nitrogen 41 mg/dL (8-23); Calcium 9.4 mg/dL (8.5-10.5); Carbon Dioxide 29 mmol/L (22-29); Chloride 98 mmol/L (98-107); Globulin 2.9 g/dL (1.3-4.6); Glucose 216 mg/dL (65-115); Magnesium 1.7 mg/dL (1.7-2.3); Osmolality Calculated 297 mOsm/kg (285-295); Phosphorus 3.1 mg/dL (2.5-4.5); Potassium 5.1 mmol/L (3.5-5.1); Sodium 135 mmol/L (136-145); Total Bilirubin 0.3 mg/dL (0.15-1.2); Total Protein 6.1 g/dL (6.6-8.7)
[2023-08-15 07:06] LABS: NT Pro B Type Natriuretic Pept 4439 pg/mL (0-125)
[2023-08-15] MEDS: nystatin powder 15 gm Btl 1 APPLIC TOPICAL ×2 (09:30→20:18)
[2023-08-15] MEDS: amiodarone 200 mg Tablet 400 MG PO ×2 (09:45→17:47)
[2023-08-15] MEDS: hyDRALAzine 25 mg Tablet PO ×3 (09:45→20:21)
[2023-08-15] MEDS: apixaban 5 mg Tablet PO ×2 (09:45→20:21)
[2023-08-15] MEDS: predniSONE 20 mg Tablet 40 MG PO (09:45)
[2023-08-15] MEDS: lidocaine 5% Patch 1 PATCH TOPICAL (09:46)
[2023-08-15] MEDS: metoprolol tartrate 50 mg Tablet 25 MG PO ×2 (09:46→20:21)
[2023-08-15] MEDS: pantoprazole 40 mg SDV IVP ×2 (09:47→17:48)
--- NOTE | 2023-08-15 11:42 | PC.SOCIAL ---
IMM Update pg 2 of IMM updated and reviewed w/ patient. Copy provided and copy dated, initialed and placed in chart.
[2023-08-15 12:05] LABS: Glucose Point of Care 217 mg/dL (70-110)
[2023-08-15 17:10] LABS: Glucose Point of Care 290 mg/dL (70-110)
--- NOTE | 2023-08-15 17:10 | P.PN_ITS ---
Subjective 2 Subjective: eating dinner, family member at bedside helping she denies complaints Vitals/I&O/Wt Last Vital Signs Temp 99.7 F H 08/15/23 15:39 Pulse 94 08/15/23 15:39 Resp 18 08/15/23 15:39 BP 134/88 08/15/23 15:39 Pulse Ox 97 08/15/23 15:47 O2 Del Method BiPAP 08/15/23 15:39 O2 Flow Rate 30 08/15/23 15:39 FiO2 30 08/15/23 15:47 08/15/23 08/15/23 08/15/23 06:59 14:59 22:59 Intake Total 60 / 610 Output Total 300 / 3050 Balance -240 / -2440 urine output 1250/24h Weight last 48 hrs Weight 107.5 kg Weight 107.5 kg Physical Exam 2 Const: COMMON NORMALS: no acute distress and alert Extremity: NARRATIVE EXTREMITY EXAM: + edema Neuro: SENSORIUM/ORIENTATION: Yes alert Urinary Catheter Management: Manzanares Latex: Cath Placed During This Visit: yes, but has since been removed by the nurse Reason for Continuing Indwelling Catheter: Accurate Measurement of Urinary Output in Critically Ill Patients Urinary Catheter Date of Insertion: 07/27/23 Urinary Catheter Time of Insertion: 19:45 Date Urinary Catheter Removed: 08/03/23 Time Urinary Catheter Discontinued: 14:30 Manzanares: Cath Placed During This Visit: yes, but has since been removed by the nurse Reason for Continuing Indwelling Catheter: Accurate Measurement of Urinary Output in Critically Ill Patients Date Urinary Catheter Removed: 08/11/23 Time Urinary Catheter Discontinued: 14:00 Data 08/15/23 06:30 08/15/23 06:30 Other Labs: albumin 3.2, calcium 9.4, phos 3.1, Mg 1.7 Other data: seen via telemedicine with assistance of RN at bedside A&P Assessment and plan (1) CYNTHIA (acute kidney injury): Plan 1,Acute kidney injury, renal function appears to be improving. Had HD yesterday. HD again tomorrow and evaluate labs prior to additonal HD. Recommend remove femoral temporary HD catheter. 2. Hyponatremia - improved 3. Anemia, Hb stable Attestations 2 Medical Necessity Statement*: see above Time Spent in Patient Care: 16 - 35 minutes Coding Level of Care Code Acute Code for [facility] Fwd Diagnoses CYNTHIA (acute kidney injury) N17.9
--- NOTE | 2023-08-15 17:56 | P.PN_ITS ---
Subjective 2 Subjective: Patient was seen this morning, she is alert to person, to place, not to time she can follow commands, she reports generalized weakness, we discussed her improving renal function Vitals/I&O/Wt Last Vital Signs Temp 99.7 F H 08/15/23 15:39 Pulse 94 08/15/23 15:39 Resp 18 08/15/23 15:39 BP 134/88 08/15/23 15:39 Pulse Ox 97 08/15/23 15:47 O2 Del Method BiPAP 08/15/23 15:39 O2 Flow Rate 30 08/15/23 15:39 FiO2 30 08/15/23 15:47 08/15/23 08/15/23 08/15/23 06:59 14:59 22:59 Intake Total 60 / 610 Output Total 300 / 3050 Balance -240 / -2440 Weight last 48 hrs Weight 107.5 kg Weight 107.5 kg Physical Exam 2 Const: COMMON NORMALS: no acute distress Neck/C-Spine: COMMON NORMALS: no JVD Resp: COMMON NORMALS: normal respiratory effort, No retractions, No use of accessory muscles and clear to auscultation bilaterally AUSCULTATION: clear to auscultation bilaterally Cardio: COMMON NORMALS: no JVD, regular rate, regular rhythm, S1 normal heart sound present and S2 normal heart sound present RATE: regular rate RHYTHM: regular rhythm HEART SOUNDS: S1 normal heart sound present and S2 normal heart sound present GI: COMMON NORMALS: Normal to inspection, nondistended, normoactive bowel sounds present and non-tender Extremity: COMMON NORMALS: no pedal edema Urinary Catheter Management: Manzanares Latex: Cath Placed During This Visit: yes, but has since been removed by the nurse Reason for Continuing Indwelling Catheter: Accurate Measurement of Urinary Output in Critically Ill Patients Urinary Catheter Date of Insertion: 07/27/23 Urinary Catheter Time of Insertion: 19:45 Date Urinary Catheter Removed: 08/03/23 Time Urinary Catheter Discontinued: 14:30 Manzanares: Cath Placed During This Visit: yes, but has since been removed by the nurse Reason for Continuing Indwelling Catheter: Accurate Measurement of Urinary Output in Critically Ill Patients Date Urinary Catheter Removed: 08/11/23 Time Urinary Catheter Discontinued: 14:00 Data 08/15/23 06:30 08/15/23 06:30 A&P Assessment and plan (1) COPD (chronic obstructive pulmonary disease): Qualifiers: COPD type: unspecified COPD Qualified Code(s): J44.9 - Chronic obstructive pulmonary disease, unspecified (2) Acute and chronic respiratory failure with hypoxia: (3) PNA (pneumonia): (4) Pleural effusion: (5) CHF (congestive heart failure): acute on chronic with preserved EF Qualifiers: Heart failure type: diastolic Heart failure chronicity: acute on chronic Qualified Code(s): I50.33 - Acute on chronic diastolic (congestive) heart failure (6) Ventilator dependence: (7) Respiratory failure: (8) Acute respiratory failure with hypoxia and hypercarbia: (9) Respiratory acidosis: (10) Multiorgan failure: Plan 72-year-old lady with COPD, CHF, immunocompromised on Humira ,currently admitted to the hospital with acute on chronic hypoxic respiratory failure with multiple recent hospital admissions for the same reason.Recent chest x-rays and CAT scans have shows bilateral infiltrates which may represent persisting pneumonic infiltrates. Hospital course has been notable for ventilator dependent respiratory failure, with acute worsening on August 02, 2023. # Acute on chronic hypoxic respiratory failure, resolving Likely multifactorial relating to persistent pneumonic infiltrates versus pulmonary edema versus acute aspiration event on August 02. ? Has completed antibiotic therapy ? Continue to receive intermittent BiPAP #Gram-positive bacteremia, on 08/02 identified as Staph hominis 1/2 cutures likely contaminant blood cx 08/03 negative to date Respiratory and blood cultures negative for MRSA #Acute kidney injury, prerenal possibly ATN. Status post permacath placement ? Monitor renal function #Acute on chronic diasotlic CHF ? Receiving dialysis #Immunocompromised, on adalimumab, methrotrexate outpatient #A-fib with RVR Amiodarone 400 twice daily ? Metropol 25 twice daily -on eliquis #Acute on chronic anemia Hemoglobin 9.1. Trend closely. ? Protonix IV twice daily to continue serum sodium 128, monitor Full Code DVT PPX: SCDs. GI ppx: protonix 40 IV BID Nursing staff and updated bedside in a lot of detail. All questions were answered to his satisfaction. Attestations 2 Medical Necessity Statement*: Patient requires hospitalization for acute renal failure, respiratory failure, A-fib Diagnoses Chronic obstructive pulmonary disease, unspecified COPD type J44.9 COPD type: unspecified COPD Acute and chronic respiratory failure with hypoxia J96.21 PNA (pneumonia) J18.9 Pleural effusion J90 Acute on chronic diastolic congestive heart failure I50.33 Heart failure type: diastolic Heart failure chronicity: acute on chronic Ventilator dependence Z99.11 Respiratory failure J96.90 Acute respiratory failure with hypoxia and hypercarbia J96.01; J96.02 Respiratory acidosis E87.29 Multiorgan failure
[2023-08-15] MEDS: atorvastatin 40 mg Tablet 80 MG PO (20:21)
--- NOTE | 2023-08-15 21:59 | P.PN_ITS ---
Subjective 2 Subjective: Patient was seen today at bedside On nasal cannula 3 L Deconditioning-awaiting placement Medications: Reviewed: Yes Vitals/I&O/Wt Last Vital Signs Temp 98.6 F 08/15/23 19:42 Pulse 107 H 08/15/23 19:42 Resp 18 08/15/23 19:42 BP 141/80 08/15/23 19:42 Pulse Ox 96 08/15/23 19:42 O2 Del Method BiPAP 08/15/23 15:39 O2 Flow Rate 30 08/15/23 15:39 FiO2 30 08/15/23 15:47 08/15/23 08/15/23 08/15/23 06:59 14:59 22:59 Intake Total 60 / 610 480 / 480 Output Total 300 / 3050 300 / 300 Balance -240 / -2440 180 / 180 Weight last 48 hrs Weight 236 lb 15.951 oz Weight 236 lb 15.951 oz Physical Exam 2 Narrative: General: Alert oriented and following commands, HEENT: conj clear, EOMI, PERRL, mmm, Neck: supple, no meningismus Heme: no cervical LAP Respiratory: Inspection: No visible deformity of the chest wall Palpation: Trachea is mildly deviated to the right, bilateral symmetric expansion Percussion: Bilateral tympanic percussion note both anterior and posteriorly Auscultation: Improved crackles Cardiovascular: rrr, nl s1s2, no mrg Abdomen: soft, nt, nd, no r/g, bs+ Extremities: pulses +, 1+ pitting pedal edema, no c/c : no CVA tenderness Skin: intact, no rash MSK: no back or neck pain Neurologic: grossly intact Urinary Catheter Management: Manzanares Latex: Cath Placed During This Visit: yes, but has since been removed by the nurse Reason for Continuing Indwelling Catheter: Accurate Measurement of Urinary Output in Critically Ill Patients Urinary Catheter Date of Insertion: 07/27/23 Urinary Catheter Time of Insertion: 19:45 Date Urinary Catheter Removed: 08/03/23 Time Urinary Catheter Discontinued: 14:30 Manzanares: Cath Placed During This Visit: yes, but has since been removed by the nurse Reason for Continuing Indwelling Catheter: Accurate Measurement of Urinary Output in Critically Ill Patients Date Urinary Catheter Removed: 08/11/23 Time Urinary Catheter Discontinued: 14:00 Data 08/16/23 04:36 08/16/23 04:36 A&P Assessment and plan (1) Acute respiratory failure with hypoxia and hypercarbia: (2) CHF (congestive heart failure): Qualifiers: Heart failure type: diastolic Heart failure chronicity: acute on chronic Qualified Code(s): I50.33 - Acute on chronic diastolic (congestive) heart failure (3) Seronegative rheumatoid arthritis of both hands: (4) High risk medication use: (5) Morbid obesity: (6) Chronic atrial fibrillation: (7) CYNTHIA (acute kidney injury): (8) Amber albicans infection: Plan # Acute hypoxic/hypercapnic respiratory failure in patient with underlying COPD, diastolic heart failure, chronic bilateral pleural effusions, morbid obesity- significantly oxygenation-currently down to 3 L nasal cannula and BiPAP at nighttime # History of rheumatoid arthritis on Humira and immunosuppressive medications- rule out underlying opportunistic infections # CYNTHIA on CKD-currently off pressor # Chronic V-fux-dwjldxmok rate controlled-on p.o. amiodarone; heparin drip for anticoagulation # Hypokalemia and hypomagnesemia-normal- # Large bilateral pleural effusions-Improved with dialysis #Sputum cultures and urine cultures positive for Amber albicans-patient is currently on fluconazole # Severe deconditioning -Successfully extubated to BiPAP and currently on 30% FiO2-significant improvement in mentation-but she is extremely deconditioned-need aggressive physical therapy and rehab -CTA 08/02/2023-ruled out PE; large bilateral pleural effusions; very difficult to do ultrasound-guided thoracentesis given her body habitus; however she was started on hemodialysis -Off pressors -Bronchoscopy 10/07/2022-revealed copious amount of secretions blocking right lower lobe subsegments-they were suctioned out and BAL sent for various studies - Sugars are moderately controlled-On insulin scale coverage -workup so far negative for respiratory viral panel, COVID-19,; Given her immunosuppression for rheumatoid arthritis-extensive workup was sent - oral amiodarone; Eliquis for anticoagulation - currently on oral feeds and advance as tolerated - So for beta D glucan weekly positive-PCP PCR, histoplasma antigen, coccidioidomycosis--negative; received Bactrim related blood work; PCP PCR is negative - She is in airborne isolation-sputum for MTB-is pending; TB QuantiFERON is negative -Hemodialysis as per renal team Attestations 2 Medical Necessity Statement*: Currently awaiting placement Coding Level of Care Code Acute Code for [facility] Fwd Diagnoses Acute respiratory failure with hypoxia and hypercarbia J96.01; J96.02 Acute on chronic diastolic congestive heart failure I50.33 Heart failure type: diastolic Heart failure chronicity: acute on chronic Seronegative rheumatoid arthritis of both hands M06.041; M06.042 High risk medication use Z79.899 Morbid obesity E66.01 Chronic atrial fibrillation I48.20 CYNTHIA (acute kidney injury) N17.9 Amber albicans infection B37.9 Time Spent (min) 34
[2023-08-15 23:58] LABS: Glucose Point of Care 235 mg/dL (70-110)
[2023-08-16] VITALS (10 sets, daily range): BP systolic 104–162; BP diastolic 67–91; PULSE 97–115; RESP 16–22; TEMP 36.3–37.4; O2SAT 96–98
[2023-08-16] MEDS: insulin lispro 100 unit/1 mL SUBCUT ×3 (00:09→17:38)
[2023-08-16 05:00] LABS: Eosinophils % 0.4 %; Hematocrit 30.7 % (36-47); Lymphocytes % 11.3 %; Mean Corpuscular HGB Conc 29.6 g/dL (30-55); Mean Corpuscular Hemoglobin 26.8 pg (27-33); Mean Corpuscular Volume 90.3 fl (85-98); Mean Platelet Volume 9.1 fL (7.4-10.4); Monocytes # 0.9 10^3/uL (0.2-0.9); Monocytes % 10.9 %; Neutrophils # 6.48 10^3/uL (1.8-7.7); Neutrophils % 76.6 %; Nucleated Red Blood Cells % 0 %; Platelet Count 183 10^3/cmm (157-399); Red Cell Distribution Width 18.2 % (12.1-15.1); White Blood Count 8.46 10^3/uL (3.29-11.43)
[2023-08-16 05:27] LABS: Alanine Aminotransferase 30 U/L (0-33); Albumin Level 3.1 g/dL (3.5-5.2); Alkaline Phosphatase 105 U/L (35-105); Blood Urea Nitrogen 49 mg/dL (8-23); Calcium 9.4 mg/dL (8.5-10.5); Carbon Dioxide 27 mmol/L (22-29); Chloride 101 mmol/L (98-107); Globulin 2.4 g/dL (1.3-4.6); Glucose 144 mg/dL (65-115); Magnesium 1.7 mg/dL (1.7-2.3); Osmolality Calculated 304 mOsm/kg (285-295); Phosphorus 3.3 mg/dL (2.5-4.5); Sodium 139 mmol/L (136-145); Total Bilirubin 0.3 mg/dL (0.15-1.2); Total Protein 5.5 g/dL (6.6-8.7)
[2023-08-16 05:29] LABS: Anion Gap 16.6 (5-19); NT Pro B Type Natriuretic Pept 5221 pg/mL (0-125); Potassium 5.6 mmol/L (3.5-5.1)
[2023-08-16 05:30] LABS: Aspartate Amino Transferase 34 U/L (0-32)
[2023-08-16] MEDS: levothyroxine 150 mcg Tablet PO (05:31)
[2023-08-16] MEDS: duloxetine 60 mg Capsule PO (05:31)
[2023-08-16 06:09] LABS: Glucose Point of Care 149 mg/dL (70-110)
--- NOTE | 2023-08-16 10:52 | PC.NURSE ---
This nurse removed temporary dialysis catheter from right groin. Tip intact. Patient bleeding. Pressure held for 15min and then traded with Shyanne CR.
[2023-08-16 11:10] LABS: Glucose Point of Care 148 mg/dL (70-110)
[2023-08-16] MEDS: FUROsemide 40 mg Tablet PO (11:57)
[2023-08-16] MEDS: predniSONE 20 mg Tablet 40 MG PO (11:57)
[2023-08-16] MEDS: amiodarone 200 mg Tablet 400 MG PO ×2 (11:57→17:36)
[2023-08-16] MEDS: hyDRALAzine 25 mg Tablet PO ×3 (11:58→21:27)
[2023-08-16] MEDS: pantoprazole 40 mg SDV IVP ×2 (11:58→17:36)
[2023-08-16] MEDS: chlorhexidine gluconate 0.12% Btl 473 mL 15 ML MUCOUS MEM ×2 (11:59→17:39)
[2023-08-16] MEDS: apixaban 5 mg Tablet PO ×2 (12:02→21:27)
[2023-08-16] MEDS: nystatin powder 15 gm Btl 1 APPLIC TOPICAL ×2 (12:02→17:38)
[2023-08-16] MEDS: metoprolol tartrate 50 mg Tablet 25 MG PO ×2 (12:02→21:28)
[2023-08-16] MEDS: lidocaine 5% Patch 1 PATCH TOPICAL (13:34)
--- NOTE | 2023-08-16 13:40 | P.PN_ITS ---
Subjective 2 Subjective: at bedside, she is on BiPAP, Femoral HD catheter removed this AM Vitals/I&O/Wt Last Vital Signs Temp 97.4 F L 08/16/23 11:45 Pulse 104 H 08/16/23 11:45 Resp 18 08/16/23 11:45 BP 129/89 08/16/23 11:45 Pulse Ox 97 08/16/23 11:45 O2 Del Method BiPAP 08/16/23 11:45 O2 Flow Rate 30 08/15/23 15:39 FiO2 30 08/16/23 09:41 08/15/23 08/16/23 08/16/23 22:59 06:59 14:59 Intake Total 600 / 600 120 / 720 290 / 290 Output Total 300 / 300 500 / 800 Balance 300 / 300 -380 / -80 290 / 290 Weight last 48 hrs Weight 107.5 kg Weight 107.5 kg Weight 107.5 kg Physical Exam 2 Urinary Catheter Management: Manzanares Latex: Cath Placed During This Visit: yes, but has since been removed by the nurse Reason for Continuing Indwelling Catheter: Accurate Measurement of Urinary Output in Critically Ill Patients Urinary Catheter Date of Insertion: 07/27/23 Urinary Catheter Time of Insertion: 19:45 Date Urinary Catheter Removed: 08/03/23 Time Urinary Catheter Discontinued: 14:30 Manzanares: Cath Placed During This Visit: yes, but has since been removed by the nurse Reason for Continuing Indwelling Catheter: Accurate Measurement of Urinary Output in Critically Ill Patients Date Urinary Catheter Removed: 08/11/23 Time Urinary Catheter Discontinued: 14:00 Data 08/16/23 04:36 08/16/23 04:36 Other data: seen via telemedicine with assistance of RN at bedside A&P Assessment and plan (1) CYNTHIA (acute kidney injury): Plan 1,Acute kidney injury. HD today. Renal function may be improving. Reassess need for HD on Sunday. 2. Hyponatremia - resolved 3. Hyperkalemmia, restrict potassium in diet 4. Anemia, Hb stable Attestations 2 Medical Necessity Statement*: see above Time Spent in Patient Care: less than 15 minutes Coding Level of Care Code Acute Code for [facility] Fwd Diagnoses CYNTHIA (acute kidney injury) N17.9
--- NOTE | 2023-08-16 14:58 | PM.PN ---
Subjective Subjective: Patient was seen today at bedside On nasal cannula 2 L and intermittently using BiPAP Currently awaiting placement Medications: Reviewed: Yes Vitals/I&O/Wt Last Vital Signs Temp 97.4 F L 08/16/23 11:45 Pulse 102 H 08/16/23 14:01 Resp 18 08/16/23 11:45 BP 129/89 08/16/23 11:45 Pulse Ox 97 08/16/23 14:01 O2 Del Method BiPAP 08/16/23 11:45 O2 Flow Rate 30 08/15/23 15:39 FiO2 30 08/16/23 14:01 08/15/23 08/16/23 08/16/23 22:59 06:59 14:59 Intake Total 600 / 600 120 / 720 290 / 290 Output Total 300 / 300 500 / 800 Balance 300 / 300 -380 / -80 290 / 290 Weight last 48 hrs Weight 236 lb 15.951 oz Weight 236 lb 15.951 oz Weight 236 lb 15.951 oz Physical Exam Narrative: General: Alert oriented and following commands, HEENT: conj clear, EOMI, PERRL, mmm, Neck: supple, no meningismus Heme: no cervical LAP Respiratory: Inspection: No visible deformity of the chest wall Palpation: Trachea is mildly deviated to the right, bilateral symmetric expansion Percussion: Bilateral tympanic percussion note both anterior and posteriorly Auscultation: Improved crackles Cardiovascular: rrr, nl s1s2, no mrg Abdomen: soft, nt, nd, no r/g, bs+ Extremities: pulses +, 1+ pitting pedal edema, no c/c : no CVA tenderness Skin: intact, no rash MSK: no back or neck pain Neurologic: grossly intact Urinary Catheter Management: Manzanares Latex: Cath Placed During This Visit: yes, but has since been removed by the nurse Reason for Continuing Indwelling Catheter: Accurate Measurement of Urinary Output in Critically Ill Patients Urinary Catheter Date of Insertion: 07/27/23 Urinary Catheter Time of Insertion: 19:45 Date Urinary Catheter Removed: 08/03/23 Time Urinary Catheter Discontinued: 14:30 Manzanares: Cath Placed During This Visit: yes, but has since been removed by the nurse Reason for Continuing Indwelling Catheter: Accurate Measurement of Urinary Output in Critically Ill Patients Date Urinary Catheter Removed: 08/11/23 Time Urinary Catheter Discontinued: 14:00 Data 08/16/23 04:36 08/16/23 04:36 Other Labs: Radiology Impressions Chest CTA 08/02/23 17:42 IMPRESSION: 1. Negative for pulmonary embolus. 2. Endotracheal tube and enteric tube seen in place. 3. Right-sided central venous catheter. 4. Large bilateral pleural effusions. 5. Several enlarged mediastinal lymph nodes measuring up to 17 mm, nonspecific. 6. Cardiomegaly. 7. Coronary artery atherosclerotic calcifications. 8. Cirrhotic liver. 9. Hepatic steatosis. 10. Cholecystectomy. 11. Bilateral right greater than left airspace infiltrates. 12. Left kidney 16 mm exophytic probable hyperdense cyst, nonemergent ultrasound could further characterize this. 13. Main pulmonary artery is somewhat prominent which can be a finding of pulmonary artery hypertension. COMMENTS: Consistent with the [employer]'s Incidental Findings Committee white paper (J Am Cesar Radiol 2018): Any incidental renal lesion less than 1 cm or classified as too small to characterize, or any incidental cystic renal lesion characterized as simple-appearing, is likely benign. No follow-up imaging is recommended for these lesions per consensus recommendations based on imaging criteria. Abdomen X-Ray 08/04/23 14:43 IMPRESSION: Air-filled structure positioned in the midline lower abdomen may represent a low-lying stomach. Dilated bowel loop/obstruction cannot be excluded. Laboratory Results WBC 8.46 10^3/uL (3.29-11.43) 08/16/23 04:36 RBC 3.40 10^6/uL (3.85-5.65) L 08/16/23 04:36 Hgb 9.10 g/dL (11.27-16.99) L 08/16/23 04:36 Hct 30.7 % (36-47) L 08/16/23 04:36 MCV 90.3 fl (85-98) 08/16/23 04:36 MCH 26.8 pg (27-33) L 08/16/23 04:36 MCHC 29.6 g/dL (30-55) L 08/16/23 04:36 RDW 18.2 % (12.1-15.1) H 08/16/23 04:36 Plt Count 183 10^3/cmm (157-399) 08/16/23 04:36 MPV 9.1 fL (7.4-10.4) 08/16/23 04:36 Neut % (Auto) 76.6 % 08/16/23 04:36 Lymph % (Auto) 11.3 % 08/16/23 04:36 [place] % (Auto) 10.9 % 08/16/23 04:36 Eos % (Auto) 0.4 % 08/16/23 04:36 Baso % (Auto) 0.0 % 08/16/23 04:36 Neut # (Auto) 6.48 10^3/uL (1.8-7.7) 08/16/23 04:36 Lymph # (Auto) 1.0 10^3/uL (0.8-4.8) 08/16/23 04:36 [place] # (Auto) 0.9 10^3/uL (0.2-0.9) 08/16/23 04:36 Eos # (Auto) 0.0 10^3/uL (0.0-0.8) 08/16/23 04:36 Baso # (Auto) 0.0 10^3/uL (0.0-0.1) 08/16/23 04:36 Nucleated RBC % (auto) 0 % 08/16/23 04:36 Nucleated RBCs # 0.0 /100WBC 08/16/23 04:36 PT 14.70 SECONDS (12.1-14.9) 08/04/23 04:55 INR 1.11 (0.8-1.2) 08/04/23 04:55 APTT 51.3 SECONDS (23.9-36.7) H 08/12/23 20:20 Fibrinogen 556 mg/dL (174-498) H 08/02/23 17:51 Fibrin Degrad Products <5 mcg/mL (LESS THAN 5) 08/02/23 17:58 D-Dimer 0.74 ug/mLFEU (0-0.59) H 08/02/23 17:51 Specimen Type Arterial 08/08/23 16:15 Sample Site Brachial, left 08/08/23 16:15 ABG pH 7.35 (7.35-7.45) 08/08/23 16:15 ABG pCO2 46.2 mmHg (35-45) H 08/08/23 16:15 ABG pO2 68.6 mmHg (80.0-100.0) L 08/08/23 16:15 ABG PO2/FiO2 Ratio 0 08/08/23 16:15 ABG HCO3 25.3 mmol/L (22-26) 08/08/23 16:15 ABG O2 Saturation 94.2 08/08/23 08:35 ABG Base Excess -0.5 mmol/L (-2.0-2.0) 08/08/23 16:15 Memo Test Pos 08/08/23 16:15 A-a O2 Gradient 10.2 mmHg (5-10) H 08/08/23 08:35 Hematocrit 22.8 % (37-47) L 08/08/23 16:15 Hgb O2 Saturation 91.2 % (95-100) L 08/08/23 08:35 Carboxyhemoglobin 1.7 %THgb (0.4-20.1) 08/08/23 08:35 Methemoglobin 1.5 % (0.4-1.5) 08/08/23 08:35 Total Hemoglobin 7.7 g/dL (12-16) L 08/08/23 08:35 Sodium 130.0 mmol/L (131-143) L 08/08/23 08:35 Potassium 3.6 mmol/L (3.5-5.0) 08/08/23 08:35 Glucose 122.0 mg/dL (70-115) H 08/08/23 08:35 Ionized Calcium 1.2 mmol/L (1.1-1.4) 08/08/23 08:35 O2 Delivery Device Bipap 08/08/23 16:15 O2 Liters/Min 5.0 % 07/25/23 15:12 FiO2 30.0 % 08/08/23 16:15 Tidal Volume 0.40 08/07/23 04:33 PEEP 8.0 cmH20 08/04/23 14:50 Control Room Supervisor ID [id number] 08/08/23 16:15 Sodium 139 mmol/L (136-145) 08/16/23 04:36 Potassium 5.6 mmol/L (3.5-5.1) H 08/16/23 04:36 Chloride 101 mmol/L (98-107) 08/16/23 04:36 Carbon Dioxide 27 mmol/L (22-29) 08/16/23 04:36 Anion Gap 16.6 (5-19) 08/16/23 04:36 BUN 49 mg/dL (8-23) H 08/16/23 04:36 Creatinine 1.9 mg/dL (0.5-0.9) H 08/16/23 04:36 GFR Calculation Not Reportable 08/16/23 04:36 Glucose 144 mg/dL (65-115) H 08/16/23 04:36 POC Glucose 189 mg/dL (70-110) H 08/16/23 21:38 Calculated Osmolality 304 mOsm/kg (285-295) H 08/16/23 04:36 Lactate 3.6 mmol/L (0.5-2.2) H 08/04/23 15:18 Calcium 9.4 mg/dL (8.5-10.5) 08/16/23 04:36 Phosphorus 3.3 mg/dL (2.5-4.5) 08/16/23 04:36 Magnesium 1.7 mg/dL (1.7-2.3) 08/16/23 04:36 Iron 50 ug/dL (37-145) 08/04/23 04:45 TIBC 273 mcg/dl 08/04/23 04:45 % Saturation 18.3 % (20-50) L 08/04/23 04:45 Unsat Iron Binding 223 ug/dL (112-347) 08/04/23 04:45 Ferritin 110 ng/mL (15-150) 08/04/23 04:45 Total Bilirubin 0.3 mg/dL (0.15-1.2) 08/16/23 04:36 AST 34 U/L (0-32) H 08/16/23 04:36 ALT 30 U/L (0-33) 08/16/23 04:36 Alkaline Phosphatase 105 U/L (35-105) 08/16/23 04:36 Troponin T Baseline 43 ng/L (0-10) H 08/02/23 17:51 Troponin T 120 Minute 47.08 ng/L (0-10) H 08/02/23 20:05 Delta Troponin T 4.08 ABS# (0-10) 08/02/23 20:05 Troponin T Hi Sens 6Hr 47.70 ng/L (0-10) H 08/02/23 23:47 Troponin T Hi Sens 6Hr Delta 4.70 ng/L (0-12) 12/07/23 23:47 NT-Pro-B Natriuret Pep 5221 pg/mL (0-125) H 08/16/23 04:36 Total Protein 5.5 g/dL (6.6-8.7) L 08/16/23 04:36 Albumin 3.1 g/dL (3.5-5.2) L 08/16/23 04:36 Globulin 2.4 g/dL (1.3-4.6) 08/16/23 04:36 Vitamin B12 799 pg/mL (232-1245) 08/04/23 04:45 25-OH Vitamin D Total 35 ng/mL (30-100) 08/04/23 04:45 Procalcitonin 0.47 ng/mL (0-0.5) 08/04/23 04:45 Urine Color Dark yellow (Yellow) 07/25/23 11:54 Urine Appearance Hazy (CLEAR) A 07/25/23 11:54 Urine pH 5 (5-7) 07/25/23 11:54 Ur Specific [place] 1.020 (1.005-1.030) 07/25/23 11:54 Urine Protein Trace (Negative) 07/25/23 11:54 Urine Glucose (UA) Norm (Normal) 07/25/23 11:54 Urine Ketones Negative (Negative) 07/25/23 11:54 Urine Blood Neg (Negative) 07/25/23 11:54 Urine Nitrate Negative (Negative) 07/25/23 11:54 Urine Bilirubin Neg (Negative) 07/25/23 11:54 Urine Urobilinogen Norm mg/dL (Negative) 07/25/23 11:54 Ur Leukocyte Esterase Negative (Negative) 07/25/23 11:54 Urine RBC 0-4 /hpf (0-2) H 07/25/23 11:54 Urine WBC 15-25 /hpf (0-5) H 07/25/23 11:54 Ur Squamous Epith Cells 10-15 /hpf (0-5) H 07/25/23 11:54 Ur Transition Epith Cell 5-10 /hpf 07/25/23 11:54 Amorphous Sediment Not Reportable 07/25/23 11:54 Urine Bacteria Trace /hpf (NONE) 07/25/23 11:54 Hyaline Casts 5-10 /lpf H 07/25/23 11:54 Urine Mucus Trace /hpf 07/25/23 11:54 Bronch Specimen Source Right lower lobe 08/06/23 07:50 Bronchial Fluid Color Slight pink 08/06/23 07:50 Bronchial Fluid Appearance Hazy (CLEAR) 08/06/23 07:50 Bronch Cells Counted 200 08/06/23 07:50 Bronchial Neutrophils 29.00 % (0.9-2.3) H 08/06/23 07:50 Bronchial Lymphocytes 3.00 % (10.71-12.91) L 08/06/23 07:50 Bronchial Eosinophils 1.00 % (0.13-0.25) H 08/06/23 07:50 Bronchial Macrophages 67.00 % (83.6-86.8) L 08/06/23 07:50 Bronchial Diff Comment Yes 08/06/23 07:50 Vancomycin Trough 12.0 ug/mL (10-15) 07/28/23 14:08 Digoxin 0.6 ng/mL (0.6-1.2) 08/04/23 04:45 C. difficile Tox (PCR) Not detected (NOT DETECTED) 08/09/23 14:35 Coccidioides immitis CF <1:2 07/26/23 08:55 Coronavirus 229E (PCR) Not detected (NOT DETECT) 07/25/23 15:47 Hep Bs Antigen Non-reactive (Nonreactive) 08/05/23 03:45 Hep Bs Antibody < 3.5 (11.5-1000) L 08/05/23 03:45 Histo Mycel H Protein Negative 07/26/23 08:55 Histo Mycel M Protein Negative 07/26/23 08:55 U Histop Galact Ag Qnt <0.2 ng/mL 07/25/23 11:54 Influenza Type A Ag negative (Negative) 07/25/23 15:47 Influenza Type B Ag negative (Negative) 07/25/23 15:47 Myco Comp PCR Spec Srce Sputum 08/06/23 11:00 Pneumocystis Source Right lower lobe 08/06/23 07:50 Pneumocyst jirovecii PCR Not detected 08/06/23 07:50 Aspergillus Source Whole blood 08/06/23 03:36 Aspergillus Ag (EIA) Not detected 08/06/23 07:50 Aspergillus sp (PCR) Not detected 08/06/23 03:36 A. fumigatus (PCR) Not detected 08/06/23 03:36 A. galactomannan Ag EIA Not detected 07/26/23 08:55 A. galactomannan Ag Idx <0.50 08/06/23 07:50 A. terreus (PCR) Not detected 08/06/23 03:36 SARS-CoV-2 (PCR) Not detected (NOT DETECT) 07/25/23 15:47 SARS-CoV-2 Ag (Rapid) negative (Negative) 08/08/23 14:15 MRSA (PCR) Not detected (NOT DETECTED) 08/04/23 15:18 TB (QFT) Gold In Tube Negative (NEGATIVE) 07/26/23 08:55 TB Test (QFT) Nil 0.04 IU/mL 07/26/23 08:55 TB Test (QFT) Mitogen 8.86 IU/mL 07/26/23 08:55 TB Test Mitogen - Nil 0.00 IU/mL 07/26/23 08:55 TB Test TB -Nil <0.00 IU/mL 07/26/23 08:55 Beta-(1,3)-D-Glucan 123 pg/mL H 07/26/23 08:55 B-(1,3)-D-Glucan Intrp Positive A 07/26/23 08:55 M.tuberculosis Cmplx PCR Not detected 08/06/23 11:00 Misc Test Reference Cancelled 07/30/23 11:20 Blood Type O Positive 08/09/23 12:31 Rho(D) Type Rh positive 08/09/23 12:31 Antibody Screen Negative 08/09/23 12:31 Crossmatch See Detail 08/09/23 12:31 A&P Assessment and plan (1) Acute respiratory failure with hypoxia and hypercarbia: (2) CHF (congestive heart failure): Qualifiers: Heart failure type: diastolic Heart failure chronicity: acute on chronic Qualified Code(s): I50.33 - Acute on chronic diastolic (congestive) heart failure (3) Seronegative rheumatoid arthritis of both hands: (4) High risk medication use: (5) Morbid obesity: (6) Chronic atrial fibrillation: (7) CYNTHIA (acute kidney injury): (8) Amber albicans infection: Plan # Acute hypoxic/hypercapnic respiratory failure in patient with underlying COPD, diastolic heart failure, chronic bilateral pleural effusions, morbid obesity-significantly oxygenation-currently down to 3 L nasal cannula and BiPAP at nighttime # History of rheumatoid arthritis on Humira and immunosuppressive medications-rule out underlying opportunistic infections # CYNTHIA on CKD-currently off pressor # Chronic O-ggj-rhfbmgyky rate controlled-on p.o. amiodarone; heparin drip for anticoagulation # Hypokalemia and hypomagnesemia-normal- # Large bilateral pleural effusions-Improved with dialysis #Sputum cultures and urine cultures positive for Amber albicans-patient is currently on fluconazole # Severe deconditioning -Successfully extubated to BiPAP and currently on 30% FiO2-significant improvement in mentation-but she is extremely deconditioned-need aggressive physical therapy and rehab -CTA 08/02/2023-ruled out PE; large bilateral pleural effusions; very difficult to do ultrasound-guided thoracentesis given her body habitus; however she was started on hemodialysis -Off pressors -Bronchoscopy 10/07/2022-revealed copious amount of secretions blocking right lower lobe subsegments-they were suctioned out and BAL sent for various studies - Sugars are moderately controlled-On insulin scale coverage -workup so far negative for respiratory viral panel, COVID-19,; Given her immunosuppression for rheumatoid arthritis-extensive workup was sent - oral amiodarone; Eliquis for anticoagulation - currently on oral feeds and advance as tolerated - So for beta D glucan weekly positive-PCP PCR, histoplasma antigen, coccidioidomycosis--negative; received Bactrim related blood work; PCP PCR is negative - She is in airborne isolation-sputum for MTB-is pending; TB QuantiFERON is negative -Hemodialysis as per renal team At this point of time-patient is stable-awaiting placement-pulmonary critical care will sign off and please reconsult if necessary Attestations Medical Necessity Statement*: Awaiting placement Coding Level of Care Code Acute Code for [facility] Fwd Diagnoses Acute respiratory failure with hypoxia and hypercarbia J96.01; J96.02 Acute on chronic diastolic congestive heart failure I50.33 Heart failure type: diastolic Heart failure chronicity: acute on chronic Seronegative rheumatoid arthritis of both hands M06.041; M06.042 High risk medication use Z79.899 Morbid obesity E66.01 Chronic atrial fibrillation I48.20 CYNTHIA (acute kidney injury) N17.9 Amber albicans infection B37.9 Time Spent (min) 34
--- NOTE | 2023-08-16 15:43 | P.PN_ITS ---
Subjective 2 Subjective: Patient was seen this morning, currently on BiPAP at bedside, she does report shortness of breath, she has been more BiPAP dependent over the last 24 hours, Vitals/I&O/Wt Last Vital Signs Temp 97.4 F L 08/16/23 11:45 Pulse 102 H 08/16/23 14:01 Resp 18 08/16/23 11:45 BP 129/89 08/16/23 11:45 Pulse Ox 97 08/16/23 14:01 O2 Del Method BiPAP 08/16/23 11:45 O2 Flow Rate 30 08/15/23 15:39 FiO2 30 08/16/23 14:01 08/16/23 08/16/23 08/16/23 06:59 14:59 22:59 Intake Total 120 / 720 290 / 290 Output Total 500 / 800 Balance -380 / -80 290 / 290 Weight last 48 hrs Weight 107.5 kg Weight 107.5 kg Weight 107.5 kg Physical Exam 2 Const: COMMON NORMALS: no acute distress ORIENTATION/CONSCIOUSNESS: Yes awake, Yes oriented to person and Yes oriented to place Resp: COMMON NORMALS: normal respiratory effort, No retractions and No use of accessory muscles AUSCULTATION: crackles Cardio: COMMON NORMALS: regular rate, regular rhythm, S1 normal heart sound present and S2 normal heart sound present RATE: regular rate RHYTHM: r egular rhythm HEART SOUNDS: S1 normal heart sound present and S2 normal heart sound present GI: COMMON NORMALS: Normal to inspection, nondistended, normoactive bowel sounds present and non-tender Extremity: COMMON NORMALS: no pedal edema Neuro: SENSORIUM/ORIENTATION: Yes oriented to person and Yes oriented to place Skin: NARRATIVE SKIN EXAM: 1+ edema Urinary Catheter Management: Manzanares Latex: Cath Placed During This Visit: yes, but has since been removed by the nurse Reason for Continuing Indwelling Catheter: Accurate Measurement of Urinary Output in Critically Ill Patients Urinary Catheter Date of Insertion: 07/27/23 Urinary Catheter Time of Insertion: 19:45 Date Urinary Catheter Removed: 08/03/23 Time Urinary Catheter Discontinued: 14:30 Manzanares: Cath Placed During This Visit: yes, but has since been removed by the nurse Reason for Continuing Indwelling Catheter: Accurate Measurement of Urinary Output in Critically Ill Patients Date Urinary Catheter Removed: 08/11/23 Time Urinary Catheter Discontinued: 14:00 Data 08/16/23 04:36 08/16/23 04:36 A&P Assessment and plan (1) COPD (chronic obstructive pulmonary disease): Qualifiers: COPD type: unspecified COPD Qualified Code(s): J44.9 - Chronic obstructive pulmonary disease, unspecified (2) Acute and chronic respiratory failure with hypoxia: (3) PNA (pneumonia): (4) Pleural effusion: (5) CHF (congestive heart failure): acute on chronic with preserved EF Qualifiers: Heart failure type: diastolic Heart failure chronicity: acute on chronic Qualified Code(s): I50.33 - Acute on chronic diastolic (congestive) heart failure (6) Ventilator dependence: (7) Respiratory failure: (8) Acute respiratory failure with hypoxia and hypercarbia: (9) Respiratory acidosis: (10) Multiorgan failure: Plan 72-year-old lady with COPD, CHF, immunocompromised on Humira ,currently admitted to the hospital with acute on chronic hypoxic respiratory failure with multiple recent hospital admissions for the same reason.Recent chest x-rays and CAT scans have shows bilateral infiltrates which may represent persisting pneumonic infiltrates. Hospital course has been notable for ventilator dependent respiratory failure, with acute worsening on August 02, 2023. # Acute on chronic hypoxic respiratory failure, resolving Likely multifactorial relating to persistent pneumonic infiltrates versus pulmonary edema versus acute aspiration event on August 02. ? Has completed antibiotic therapy ? Continue to receive intermittent BiPAP #Gram-positive bacteremia, on 08/02 identified as Staph hominis 1/2 cutures likely contaminant blood cx 08/03 negative to date Respiratory and blood cultures negative for MRSA #Acute kidney injury, prerenal possibly ATN. Status post permacath placement ? Monitor renal function #Acute on chronic diasotlic CHF ? Receiving dialysis #Immunocompromised, on adalimumab, methrotrexate outpatient #A-fib with RVR Amiodarone 400 twice daily ? [place]ropol 25 twice daily -on eliquis #Acute on chronic anemia Hemoglobin 9.1. Trend closely. ? Protonix IV twice daily to continue serum sodium 128, monitor Full Code DVT PPX: SCDs. GI ppx: protonix 40 IV BID Nursing staff and updated bedside in a lot of detail. All questions were answered to his satisfaction. Patient is requiring BiPAP will place her on scheduled Lasix Attestations 2 Medical Necessity Statement*: Patient requires hospitalization, for respiratory failure, requiring BiPAP today, will place her schedule Lasix, will start on Lasix 40 IV every 8 hours Diagnoses Chronic obstructive pulmonary disease, unspecified COPD type J44.9 COPD type: unspecified COPD Acute and chronic respiratory failure with hypoxia J96.21 PNA (pneumonia) J18.9 Pleural effusion J90 Acute on chronic diastolic congestive heart failure I50.33 Heart failure type: diastolic Heart failure chronicity: acute on chronic Ventilator dependence Z99.11 Respiratory failure J96.90 Acute respiratory failure with hypoxia and hypercarbia J96.01; J96.02 Respiratory acidosis E87.29 Multiorgan failure
[2023-08-16 17:15] LABS: Glucose Point of Care 256 mg/dL (70-110)
[2023-08-16] MEDS: FUROsemide 10 mg/mL SDV 4mL 40 MG IVP (17:38)
[2023-08-16] MEDS: heparin, porcine 1,000 unit/mL INJ 10 mL 1000 UNIT IV (19:20)
[2023-08-16] MEDS: atorvastatin 40 mg Tablet 80 MG PO (21:26)
[2023-08-16 21:42] LABS: Glucose Point of Care 189 mg/dL (70-110)
[2023-08-17] VITALS (8 sets, daily range): BP systolic 115–168; BP diastolic 64–76; PULSE 84–110; RESP 16–22; TEMP 36.6–37; O2SAT 93–99
[2023-08-17 00:26] LABS: Glucose Point of Care 219 mg/dL (70-110)
[2023-08-17 00:28] LABS: Glucose Point of Care 222 mg/dL (70-110)
[2023-08-17] MEDS: insulin lispro 100 unit/1 mL SUBCUT ×4 (00:28→17:30)
[2023-08-17] MEDS: FUROsemide 10 mg/mL SDV 4mL 40 MG IVP ×2 (03:03→11:35)
[2023-08-17 04:52] LABS: Basophils % 0.1 %; Hematocrit 29.2 % (36-47); Lymphocytes # 0.6 10^3/uL (0.8-4.8); Lymphocytes % 8.5 %; Mean Corpuscular HGB Conc 29.5 g/dL (30-55); Mean Corpuscular Hemoglobin 26.7 pg (27-33); Mean Corpuscular Volume 90.7 fl (85-98); Mean Platelet Volume 9.1 fL (7.4-10.4); Monocytes # 0.5 10^3/uL (0.2-0.9); Monocytes % 7.6 %; Neutrophils # 5.59 10^3/uL (1.8-7.7); Neutrophils % 83.1 %; Nucleated Red Blood Cells % 0 %; Platelet Count 143 10^3/cmm (157-399); Red Blood Count 3.22 10^6/uL (3.85-5.65); Red Cell Distribution Width 17.6 % (12.1-15.1); White Blood Count 6.73 10^3/uL (3.29-11.43)
[2023-08-17 05:20] LABS: Alanine Aminotransferase 36 U/L (0-33); Alkaline Phosphatase 110 U/L (35-105); Aspartate Amino Transferase 35 U/L (0-32); Blood Urea Nitrogen 34 mg/dL (8-23); Calcium 8.6 mg/dL (8.5-10.5); Carbon Dioxide 28 mmol/L (22-29); Chloride 98 mmol/L (98-107); Glucose 157 mg/dL (65-115); Magnesium 1.6 mg/dL (1.7-2.3); Osmolality Calculated 291 mOsm/kg (285-295); Phosphorus 2.8 mg/dL (2.5-4.5); Sodium 135 mmol/L (136-145); Total Bilirubin 0.3 mg/dL (0.15-1.2)
[2023-08-17 05:23] LABS: Anion Gap 13.4 (5-19); Potassium 4.4 mmol/L (3.5-5.1)
[2023-08-17 05:53] LABS: Glucose Point of Care 158 mg/dL (70-110)
[2023-08-17] MEDS: levothyroxine 150 mcg Tablet PO (05:54)
[2023-08-17] MEDS: duloxetine 60 mg Capsule PO (05:54)
--- NOTE | 2023-08-17 11:15 | PC.SOCIAL ---
IMM Update pg 2 of IMM updated and reviewed w/ patient. Copy provided and copy dated, initialed and placed in chart.
[2023-08-17] MEDS: amiodarone 200 mg Tablet 400 MG PO ×2 (11:35→17:29)
[2023-08-17] MEDS: predniSONE 20 mg Tablet 40 MG PO (11:35)
[2023-08-17] MEDS: pantoprazole 40 mg SDV IVP ×2 (11:36→17:31)
[2023-08-17] MEDS: chlorhexidine gluconate 0.12% Btl 473 mL 15 ML MUCOUS MEM ×2 (11:36→17:34)
[2023-08-17] MEDS: nystatin powder 15 gm Btl 1 APPLIC TOPICAL ×2 (11:36→17:35)
[2023-08-17] MEDS: hyDRALAzine 25 mg Tablet PO ×3 (11:38→21:16)
[2023-08-17] MEDS: metoprolol tartrate 50 mg Tablet 25 MG PO ×2 (11:39→21:16)
[2023-08-17] MEDS: apixaban 5 mg Tablet PO ×2 (11:39→21:16)
[2023-08-17] MEDS: lidocaine 5% Patch 1 PATCH TOPICAL (11:40)
[2023-08-17 13:37] LABS: Glucose Point of Care 244 mg/dL (70-110)
--- NOTE | 2023-08-17 16:27 | P.PN_ITS ---
Subjective 2 Subjective: states she is feeling better using BiPAP at night Vitals/I&O/Wt Last Vital Signs Temp 97.8 F 08/17/23 13:01 Pulse 92 08/17/23 13:01 Resp 18 08/17/23 13:01 BP 130/75 08/17/23 13:01 Pulse Ox 99 08/17/23 13:01 O2 Del Method Nasal Cannula 08/17/23 13:01 O2 Flow Rate 30 08/15/23 15:39 FiO2 30 08/17/23 04:00 08/17/23 08/17/23 08/17/23 06:59 14:59 22:59 Intake Total 960 / 960 Output Total 0 / 1550 Balance 0 / -1020 960 / 960 Weight last 48 hrs Weight 104.922 kg Weight 107.5 kg Physical Exam 2 Const: COMMON NORMALS: no acute distress and alert Extremity: NARRATIVE EXTREMITY EXAM: edema legs and left hand Neuro: SENSORIUM/ORIENTATION: Yes alert Urinary Catheter Management: Manzanares Latex: Cath Placed During This Visit: yes, but has since been removed by the nurse Reason for Continuing Indwelling Catheter: Accurate Measurement of Urinary Output in Critically Ill Patients Urinary Catheter Date of Insertion: 07/27/23 Urinary Catheter Time of Insertion: 19:45 Date Urinary Catheter Removed: 08/03/23 Time Urinary Catheter Discontinued: 14:30 Manzanares: Cath Placed During This Visit: yes, but has since been removed by the nurse Reason for Continuing Indwelling Catheter: Accurate Measurement of Urinary Output in Critically Ill Patients Date Urinary Catheter Removed: 08/11/23 Time Urinary Catheter Discontinued: 14:00 Data 08/17/23 04:35 08/17/23 04:35 Other data: seen via telemedicine with assistance of RN at bedside A&P Assessment and plan (1) CYNTHIA (acute kidney injury): Plan 1. Acute kidney injury. HD yesterday. Nonoliguric on oral lasix. 2. Hyponatremia - resolved 3. Hyperkalemia - resolved 4. Anemia, Hb lower, iron deficient 5. Volume overload, CHF Recommend: HD tomorrow, 2L UF as BP tolerates, recheck iron studies, give venofer and epogen at dialysis Attestations 2 Medical Necessity Statement*: see above Time Spent in Patient Care: 16 - 35 minutes Coding Level of Care Code Acute Code for [facility] Fwd Diagnoses CYNTHIA (acute kidney injury) N17.9
[2023-08-17 17:07] LABS: Glucose Point of Care 331 mg/dL (70-110)
--- NOTE | 2023-08-17 18:08 | P.PN_ITS ---
Subjective 2 Subjective: Patient was seen this morning, denies any fevers, no chills Vitals/I&O/Wt Last Vital Signs Temp 97.8 F 08/17/23 17:56 Pulse 110 H 08/17/23 17:56 Resp 17 08/17/23 17:56 BP 158/64 08/17/23 17:56 Pulse Ox 93 08/17/23 17:56 O2 Del Method Nasal Cannula 08/17/23 17:56 O2 Flow Rate 30 08/15/23 15:39 FiO2 30 08/17/23 04:00 08/17/23 08/17/23 08/17/23 06:59 14:59 22:59 Intake Total 960 / 960 Output Total 0 / 1550 Balance 0 / -1020 960 / 960 Weight last 48 hrs Weight 104.922 kg Weight 107.5 kg Physical Exam 2 Const: COMMON NORMALS: no acute distress ORIENTATION/CONSCIOUSNESS: Yes awake, Yes oriented to person and Yes oriented to place Resp: COMMON NORMALS: normal respiratory effort, No retractions, No use of accessory muscles and clear to auscultation bilaterally AUSCULTATION: clear to auscultation bilaterally Cardio: COMMON NORMALS: regular rate, regular rhythm, S1 normal heart sound present and S2 normal heart sound present RATE: regular rate RHYTHM: r egular rhythm HEART SOUNDS: S1 normal heart sound present and S2 normal heart sound present GI: COMMON NORMALS: Normal to inspection, nondistended, normoactive bowel sounds present and non-tender Extremity: COMMON NORMALS: no pedal edema Neuro: SENSORIUM/ORIENTATION: Yes oriented to person and Yes oriented to place Urinary Catheter Management: Manzanares Latex: Cath Placed During This Visit: yes, but has since been removed by the nurse Reason for Continuing Indwelling Catheter: Accurate Measurement of Urinary Output in Critically Ill Patients Urinary Catheter Date of Insertion: 07/27/23 Urinary Catheter Time of Insertion: 19:45 Date Urinary Catheter Removed: 08/03/23 Time Urinary Catheter Discontinued: 14:30 Manzanares: Cath Placed During This Visit: yes, but has since been removed by the nurse Reason for Continuing Indwelling Catheter: Accurate Measurement of Urinary Output in Critically Ill Patients Date Urinary Catheter Removed: 08/11/23 Time Urinary Catheter Discontinued: 14:00 Data 08/17/23 04:35 08/17/23 04:35 A&P Assessment and plan (1) COPD (chronic obstructive pulmonary disease): Qualifiers: COPD type: unspecified COPD Qualified Code(s): J44.9 - Chronic obstructive pulmonary disease, unspecified (2) Acute and chronic respiratory failure with hypoxia: (3) PNA (pneumonia): (4) Pleural effusion: (5) CHF (congestive heart failure): acute on chronic with preserved EF Qualifiers: Heart failure type: diastolic Heart failure chronicity: acute on chronic Qualified Code(s): I50.33 - Acute on chronic diastolic (congestive) heart failure (6) Ventilator dependence: (7) Respiratory failure: (8) Acute respiratory failure with hypoxia and hypercarbia: (9) Respiratory acidosis: (10) Multiorgan failure: (11) Deep tissue injury: Plan 72-year-old lady with COPD, CHF, immunocompromised on Humira ,currently admitted to the hospital with acute on chronic hypoxic respiratory failure with multiple recent hospital admissions for the same reason.Recent chest x-rays and CAT scans have shows bilateral infiltrates which may represent persisting pneumonic infiltrates. Hospital course has been notable for ventilator dependent respiratory failure, with acute worsening on August 02, 2023. # Acute on chronic hypoxic respiratory failure, resolving Likely multifactorial relating to persistent pneumonic infiltrates versus pulmonary edema versus acute aspiration event on August 02. ? Has completed antibiotic therapy ? Continue to receive intermittent BiPAP #Gram-positive bacteremia, on 08/02 identified as Staph hominis 1/2 cutures likely contaminant blood cx 08/03 negative to date Respiratory and blood cultures negative for MRSA #Acute kidney injury, prerenal possibly ATN. Status post permacath placement ? Monitor renal function #Acute on chronic diasotlic CHF ? Receiving dialysis #Immunocompromised, on adalimumab, methrotrexate outpatient #A-fib with RVR Amiodarone 400 twice daily ? Metropol 25 twice daily -on eliquis #Acute on chronic anemia Hemoglobin 9.1. Trend closely. ? Protonix IV twice daily to continue Sacral DTI, over sacrum, measuring 4 x 4 cm, stage II, continue to reposition, offloading, wound care monitor very closely, reposition every 2-4 hours Full Code DVT PPX: SCDs. GI ppx: protonix 40 IV BID Nursing staff and updated bedside in a lot of detail. All questions were answered to his satisfaction. Patient is requiring BiPAP will place her on scheduled Lasix Attestations 2 Medical Necessity Statement*: Patient requires hospitalization for respiratory failure, A-fib, end-stage renal disease requiring dialysis, has a sacral DTI requiring close monitoring wound care Diagnoses Chronic obstructive pulmonary disease, unspecified COPD type J44.9 COPD type: unspecified COPD Acute and chronic respiratory failure with hypoxia J96.21 PNA (pneumonia) J18.9 Pleural effusion J90 Acute on chronic diastolic congestive heart failure I50.33 Heart failure type: diastolic Heart failure chronicity: acute on chronic Ventilator dependence Z99.11 Respiratory failure J96.90 Acute respiratory failure with hypoxia and hypercarbia J96.01; J96.02 Respiratory acidosis E87.29 Multiorgan failure Deep tissue injury T14.8XXA
[2023-08-17 20:33] LABS: Glucose Point of Care 281 mg/dL (70-110)
[2023-08-17] MEDS: atorvastatin 40 mg Tablet 80 MG PO (21:16)
[2023-08-18] VITALS (8 sets, daily range): BP systolic 137–178; BP diastolic 72–91; PULSE 64–103; RESP 16–27; TEMP 36.6–36.9; O2SAT 95–98
[2023-08-18 00:36] LABS: Glucose Point of Care 229 mg/dL (70-110)
[2023-08-18] MEDS: insulin lispro 100 unit/1 mL SUBCUT ×2 (00:39→06:22)
[2023-08-18 05:46] LABS: Eosinophils % 0.2 %; Hematocrit 28.1 % (36-47); Lymphocytes # 0.6 10^3/uL (0.8-4.8); Lymphocytes % 8.5 %; Mean Corpuscular HGB Conc 30.2 g/dL (30-55); Mean Corpuscular Hemoglobin 26.8 pg (27-33); Mean Corpuscular Volume 88.6 fl (85-98); Mean Platelet Volume 9.8 fL (7.4-10.4); Monocytes # 0.6 10^3/uL (0.2-0.9); Monocytes % 8.4 %; Neutrophils # 5.39 10^3/uL (1.8-7.7); Neutrophils % 82.1 %; Nucleated Red Blood Cells % 0 %; Platelet Count 145 10^3/cmm (157-399); Red Blood Count 3.17 10^6/uL (3.85-5.65); White Blood Count 6.56 10^3/uL (3.29-11.43)
[2023-08-18 06:04] LABS: Ferritin 251 ng/mL (15-150); Iron 38 ug/dL (37-145)
[2023-08-18 06:05] LABS: Alanine Aminotransferase 31 U/L (0-33); Albumin Level 2.8 g/dL (3.5-5.2); Alkaline Phosphatase 102 U/L (35-105); Blood Urea Nitrogen 42 mg/dL (8-23); Calcium 8.5 mg/dL (8.5-10.5); Carbon Dioxide 28 mmol/L (22-29); Chloride 96 mmol/L (98-107); Globulin 2.2 g/dL (1.3-4.6); Glucose 166 mg/dL (65-115); Magnesium 1.5 mg/dL (1.7-2.3); Osmolality Calculated 292 mOsm/kg (285-295); Sodium 134 mmol/L (136-145); Total Bilirubin 0.3 mg/dL (0.15-1.2)
[2023-08-18 06:07] LABS: Glucose Point of Care 184 mg/dL (70-110)
[2023-08-18 06:14] LABS: Aspartate Amino Transferase 34 U/L (0-32)
[2023-08-18] MEDS: levothyroxine 150 mcg Tablet PO (06:22)
[2023-08-18] MEDS: duloxetine 60 mg Capsule PO (06:22)
[2023-08-18 06:28] LABS: Percent Saturation 15.5 % (20-50); Total Iron Binding Capacity 245 mcg/dl; Unsaturated Iron Binding 207 ug/dL (112-347)
--- NOTE | 2023-08-18 07:17 | P.PN_ITS ---
Subjective 2 Subjective: no new issues, seen during dialysis. Dialysis catheter is working well Vitals/I&O/Wt Last Vital Signs Temp 98.0 F 08/18/23 04:00 Pulse 78 08/18/23 06:00 Resp 16 08/18/23 04:00 BP 137/85 08/18/23 04:00 Pulse Ox 96 08/18/23 04:00 O2 Del Method BiPAP 08/18/23 04:00 O2 Flow Rate 2.5 08/17/23 21:15 FiO2 30 08/18/23 04:00 08/17/23 08/18/23 08/18/23 22:59 06:59 14:59 Intake Total 720 / 1680 Output Total 1400 / 1400 350 / 1750 Balance -680 / 280 -350 / -70 Weight last 48 hrs Weight 103.929 kg Weight 104.922 kg Physical Exam 2 Const: COMMON NORMALS: no acute distress and alert Extremity: NARRATIVE EXTREMITY EXAM: + edema Neuro: SENSORIUM/ORIENTATION: Yes alert Urinary Catheter Management: Manzanares Latex: Cath Placed During This Visit: yes, but has since been removed by the nurse Reason for Continuing Indwelling Catheter: Accurate Measurement of Urinary Output in Critically Ill Patients Urinary Catheter Date of Insertion: 07/27/23 Urinary Catheter Time of Insertion: 19:45 Date Urinary Catheter Removed: 08/03/23 Time Urinary Catheter Discontinued: 14:30 Manzanares: Cath Placed During This Visit: yes, but has since been removed by the nurse Reason for Continuing Indwelling Catheter: Accurate Measurement of Urinary Output in Critically Ill Patients Date Urinary Catheter Removed: 08/11/23 Time Urinary Catheter Discontinued: 14:00 Data 08/18/23 05:04 08/18/23 05:04 Other Labs: TSAT 15%, SF 251 Other data: seen via telemedicine with assistance of RN at bedside A&P Assessment and plan (1) CYNTHIA (acute kidney injury): Plan 1. Acute kidney injury. Nonoliguric on oral lasix. 2. Hyponatremia, hypervolemic, mild 3. Hyperkalemia - resolved 4. Anemia, Hb lower, iron deficient. Begin venofer load, 200 mg IV daily for 5 days 5. Volume overload, CHF Recommend: HD today, 2L UF as BP tolerates, give venofer and epogen at dialysis. Next HD Sunday. Can be discharged from renal standpoint with outpatient HD scheduled on 08/21/23. CYNTHIA outpatient dialysis protocol with weekly assessment of kidney function. Attestations 2 Medical Necessity Statement*: see above Time Spent in Patient Care: 16 - 35 minutes Coding Level of Care Code Acute Code for g Fwd Diagnoses CYNTHIA (acute kidney injury) N17.9
[2023-08-18] MEDS: pantoprazole 40 mg SDV IVP (08:30)
[2023-08-18] MEDS: hyDRALAzine 25 mg Tablet PO (08:49)
[2023-08-18] MEDS: metoprolol tartrate 50 mg Tablet 25 MG PO (08:49)
[2023-08-18] MEDS: amiodarone 200 mg Tablet 400 MG PO (08:49)
[2023-08-18] MEDS: FUROsemide 40 mg Tablet PO (08:49)
[2023-08-18] MEDS: lidocaine 5% Patch 1 PATCH TOPICAL (08:50)
[2023-08-18] MEDS: apixaban 5 mg Tablet PO (08:50)
[2023-08-18] MEDS: nystatin powder 15 gm Btl 1 APPLIC TOPICAL (08:51)
[2023-08-18] MEDS: heparin, porcine 1,000 unit/mL INJ 10 mL 1000 UNIT IV ×3 (10:00→14:31)
--- NOTE | 2023-08-18 11:06 | P.DS_ITS ---
Discharge Providers Date of Admission: 07/25/23 19:01 Date of Discharge: August 18, 2023 Attending Provider at Admission: Opal Marie MD Attending Provider at Discharge: Jace Renee MD Primary Care Provider: Davion Griggs MD Diagnoses at Discharge Discharge Diagnosis (1) CYNTHIA (acute kidney injury): Status: Acute Reason for Visit Reason for Visit: Chest pain, SOB Hospital Course Hospital Course Myesha Parker is a 72 year old female with history of diastolic CHF, seronegative RA , on Humira and methotrexate , COPD, uses 2 to 3 L of oxygen at baseline and Bipap at home, A fib not on a/c due to recurrent falls,who has had multiple hospital admissions here recently for acute on chronic dyspnea, shortness of breath, hypoxic hypercapnic respiratory failures. Review of records shows that she has had admission for this reason between June 16 to June 19, then 06/30 to 07/03 in addition to having intermittent ER visits for the same reason. she has been noted to have patchy left bilateral groundglass opacities and has been treated for COPD exacerbation and CHF exacerbation on these past admissions. She presents to the emergency room today with complaints of increased dyspnea and shortness of breath since her last discharge on 07/03/2023. She is also noted to have an increased oxygen requirement today at 5 L/min from a baseline of 2 to 3 L/min. Review of systems is positive for increased weakness, fatigue. No hemoptysis. Reports increased cough and some expectoration Patient had a prolonged hospital course, please look at last progress was for further detail Patient was admitted to [facility] for acute hypoxic hypercapnic respiratory failure with underlying COPD, diastolic CHF, chronic bilateral effusions, morbid obesity, there was concerns for pneumonia, there was concerns for atypical infections, she had an extensive workup which was relatively unremarkable, treated with broad-spectrum antibiotic therapy she was also in the ICU intubated on the ventilator, eventually extubated, overall clinically improved, on discharge she is on nasal cannula, follow-up with pulmonary as outpatient, for her fluid overload she will be discharged on a regular dialysis schedule, Lasix with a close follow-up with pulmonary as outpatient For history of rheumatoid arthritis on multiple immunosuppressive's of medications will be held on discharge until she follows up with rheumatology For CYNTHIA on CKD, multifactorial, is dialysis dependent on discharge Severe physical deconditioning, bedbound status, discharged to fdc facility, he should discharge for rehab On discharge my biggest concern and I discussed this with patient, her and with the intermediate is her deconditioned status, poor nutritional status, her bedbound status and her sacral decubitus ulcer which is stage 2-3. This has to be monitored aggressively and managed aggressively, with repositioning every 2-3 hours, extensive wound care, as I am worried with her deconditioned status, decreased nutrition status, her bed immobility that without appropriate care this will certainly worsen in a short amount of time, tunnel down to bone, require extensive surgeries, there is also significant morbidity and mortality. Physical Exam Const: COMMON NORMALS: no acute distress and patient oriented x3 Resp: COMMON NORMALS: normal respiratory effort, No retractions, No use of accessory muscles and clear to auscultation bilaterally AUSCULTATION: clear to auscultation bilaterally Cardio: COMMON NORMALS: regular rate, regular rhythm, S1 normal heart sound present and S2 normal heart sound present RATE: regular rate RHYTHM: regular rhythm HEART SOUNDS: S1 normal heart sound present and S2 normal heart sound present GI: COMMON NORMALS: Normal to inspection, nondistended, normoactive bowel sounds present and non-tender Extremity: COMMON NORMALS: no pedal edema Neuro: COMMON NORMALS: patient oriented x3 Urinary Catheter Management: Manzanares Latex: Cath Placed During This Visit: yes, but has since been removed by the nurse Reason for Continuing Indwelling Catheter: Accurate Measurement of Urinary Output in Critically Ill Patients Urinary Catheter Date of Insertion: 07/27/23 Urinary Catheter Time of Insertion: 19:45 Date Urinary Catheter Removed: 08/03/23 Time Urinary Catheter Discontinued: 14:30 Manzanares: Cath Placed During This Visit: yes, but has since been removed by the nurse Reason for Continuing Indwelling Catheter: Accurate Measurement of Urinary Output in Critically Ill Patients Date Urinary Catheter Removed: 08/11/23 Time Urinary Catheter Discontinued: 14:00 Discharge Data Studies Completed and Pending Completed Studies During Hospitalization Category Date Time Status CT angio chest PE protcl [id number] Stat Cat Scan 07/25/23 11:34 Completed CTA chest [CT angio chest PE protcl [id number]] Routine Cat Scan 08/02/23 17:42 Completed CXRP [XR chest 1V portable [id number]] Routine Exams 08/07/23 10:11 Completed CXRP [XR chest 1V portable [id number]] Routine Exams 08/08/23 11:47 Completed CXRP [XR chest 1V portable [id number]] Stat Exams 08/02/23 08:34 Completed CXRP [XR chest 1V portable [id number]] Stat Exams 08/04/23 21:48 Completed XR abdomen 1V* [id number] Urgent Exams 08/04/23 14:43 Completed XR chest 1V portable [id number] Routine Exams 07/30/23 13:52 Completed XR chest 1V portable [id number] Routine Exams 08/02/23 12:03 Completed XR chest 1V portable [id number] Routine Exams 08/03/23 08:00 Completed XR chest 1V portable [id number] Stat Exams 07/25/23 09:52 Completed XR chest 1V portable [id number] Stat Exams 08/05/23 08:55 Completed XR chest 1V portable [id number] Stat Exams 08/08/23 13:09 Completed CV. echo complete* [id number] Routine Ultrasound 08/04/23 06:00 Completed Pending at discharge Category Date Time Status AFB [Mycobacteria, Culture w/Fluor] Q8H Lab 07/26/23 14:37 Uncollected AFB [Mycobacteria, Culture w/Fluor] Q8H Lab 07/27/23 16:15 Results AFB [Mycobacteria, Culture w/Fluor] Q8H Lab 07/30/23 11:20 Results Complete Blood Count w/Auto AM LABS Lab 08/19/23 04:00 Ordered Comprehensive Metabolic Panel AM LABS Lab 08/19/23 04:00 Ordered Cryptococcal Antigen (CSF) AM LABS Lab 07/26/23 04:00 Uncollected Fungal Culture not HR/SK/BL Routine Lab 08/06/23 07:50 Results Leukocyte Reduced RBC Routine Lab 08/05/23 09:26 Results Magnesium AM LABS Lab 08/19/23 04:00 Ordered Phosphorus AM LABS Lab 08/19/23 04:00 Ordered TB [MTB Complex Rifampin PCR] Q8H Lab 07/26/23 14:37 Results Type and Screen Stat Lab 08/05/23 09:26 Results Radiology Impressions Chest CTA 08/02/23 17:42 IMPRESSION: 1. Negative for pulmonary embolus. 2. Endotracheal tube and enteric tube seen in place. 3. Right-sided central venous catheter. 4. Large bilateral pleural effusions. 5. Several enlarged mediastinal lymph nodes measuring up to 17 mm, nonspecific. 6. Cardiomegaly. 7. Coronary artery atherosclerotic calcifications. 8. Cirrhotic liver. 9. Hepatic steatosis. 10. Cholecystectomy. 11. Bilateral right greater than left airspace infiltrates. 12. Left kidney 16 mm exophytic probable hyperdense cyst, nonemergent ultrasound could further characterize this. 13. Main pulmonary artery is somewhat prominent which can be a finding of pulmonary artery hypertension. COMMENTS: Consistent with the [place]'s Incidental Findings Committee white paper (J Am Cesar Radiol 2018): Any incidental renal lesion less than 1 cm or classified as too small to characterize, or any incidental cystic renal lesion characterized as simple-appearing, is likely benign. No follow-up imaging is recommended for these lesions per consensus recommendations based on imaging criteria. Abdomen X-Ray 08/04/23 14:43 IMPRESSION: Air-filled structure positioned in the midline lower abdomen may represent a low-lying stomach. Dilated bowel loop/obstruction cannot be excluded. Laboratory Results WBC 6.56 10^3/uL (3.29-11.43) 08/18/23 05:04 RBC 3.17 10^6/uL (3.85-5.65) L 08/18/23 05:04 Hgb 8.50 g/dL (11.27-16.99) L 08/18/23 05:04 Hct 28.1 % (36-47) L 08/18/23 05:04 MCV 88.6 fl (85-98) 08/18/23 05:04 MCH 26.8 pg (27-33) L 08/18/23 05:04 MCHC 30.2 g/dL (30-55) 08/18/23 05:04 RDW 17.0 % (12.1-15.1) H 08/18/23 05:04 Plt Count 145 10^3/cmm (157-399) L 08/18/23 05:04 MPV 9.8 fL (7.4-10.4) 08/18/23 05:04 Neut % (Auto) 82.1 % 08/18/23 05:04 Lymph % (Auto) 8.5 % 08/18/23 05:04 [place] % (Auto) 8.4 % 08/18/23 05:04 Eos % (Auto) 0.2 % 08/18/23 05:04 Baso % (Auto) 0.0 % 08/18/23 05:04 Neut # (Auto) 5.39 10^3/uL (1.8-7.7) 08/18/23 05:04 Lymph # (Auto) 0.6 10^3/uL (0.8-4.8) L 08/18/23 05:04 [place] # (Auto) 0.6 10^3/uL (0.2-0.9) 08/18/23 05:04 Eos # (Auto) 0.0 10^3/uL (0.0-0.8) 08/18/23 05:04 Baso # (Auto) 0.0 10^3/uL (0.0-0.1) 08/18/23 05:04 Nucleated RBC % (auto) 0 % 08/18/23 05:04 Nucleated RBCs # 0.0 /100WBC 08/18/23 05:04 PT 14.70 SECONDS (12.1-14.9) 08/04/23 04:55 INR 1.11 (0.8-1.2) 08/04/23 04:55 APTT 51.3 SECONDS (23.9-36.7) H 08/12/23 20:20 Fibrinogen 556 mg/dL (174-498) H 08/02/23 17:51 Fibrin Degrad Products <5 mcg/mL (LESS THAN 5) 08/02/23 17:58 D-Dimer 0.74 ug/mLFEU (0-0.59) H 08/02/23 17:51 Specimen Type Arterial 08/08/23 16:15 Sample Site Brachial, left 08/08/23 16:15 ABG pH 7.35 (7.35-7.45) 08/08/23 16:15 ABG pCO2 46.2 mmHg (35-45) H 08/08/23 16:15 ABG pO2 68.6 mmHg (80.0-100.0) L 08/08/23 16:15 ABG PO2/FiO2 Ratio 0 08/08/23 16:15 ABG HCO3 25.3 mmol/L (22-26) 08/08/23 16:15 ABG O2 Saturation 94.2 08/08/23 08:35 ABG Base Excess -0.5 mmol/L (-2.0-2.0) 08/08/23 16:15 Memo Test Pos 12/13/23 16:15 A-a O2 Gradient 10.2 mmHg (5-10) H 08/08/23 08:35 Hematocrit 22.8 % (37-47) L 08/08/23 16:15 Hgb O2 Saturation 91.2 % (95-100) L 08/08/23 08:35 Carboxyhemoglobin 1.7 %THgb (0.4-20.1) 08/08/23 08:35 Methemoglobin 1.5 % (0.4-1.5) 08/08/23 08:35 Total Hemoglobin 7.7 g/dL (12-16) L 08/08/23 08:35 Sodium 130.0 mmol/L (131-143) L 08/08/23 08:35 Potassium 3.6 mmol/L (3.5-5.0) 08/08/23 08:35 Glucose 122.0 mg/dL (70-115) H 08/08/23 08:35 Ionized Calcium 1.2 mmol/L (1.1-1.4) 08/08/23 08:35 O2 Delivery Device Bipap 08/08/23 16:15 O2 Liters/Min 5.0 % 07/25/23 15:12 FiO2 30.0 % 08/08/23 16:15 Tidal Volume 0.40 08/07/23 04:33 PEEP 8.0 cmH20 08/04/23 14:50 Java J[employer] Developer ID [email or web address] 08/08/23 16:15 Sodium 134 mmol/L (136-145) L 08/18/23 05:04 Potassium 5.0 mmol/L (3.5-5.1) 08/18/23 05:04 Chloride 96 mmol/L (98-107) L 08/18/23 05:04 Carbon Dioxide 28 mmol/L (22-29) 08/18/23 05:04 Anion Gap 15.0 (5-19) 08/18/23 05:04 BUN 42 mg/dL (8-23) H 08/18/23 05:04 Creatinine 1.7 mg/dL (0.5-0.9) H 08/18/23 05:04 GFR Calculation Not Reportable 08/18/23 05:04 Glucose 166 mg/dL (65-115) H 08/18/23 05:04 POC Glucose 184 mg/dL (70-110) H 08/18/23 06:03 Calculated Osmolality 292 mOsm/kg (285-295) 08/18/23 05:04 Lactate 3.6 mmol/L (0.5-2.2) H 08/04/23 15:18 Calcium 8.5 mg/dL (8.5-10.5) 08/18/23 05:04 Phosphorus 3.0 mg/dL (2.5-4.5) 08/18/23 05:04 Magnesium 1.5 mg/dL (1.7-2.3) L 08/18/23 05:04 Iron 38 ug/dL (37-145) 08/18/23 05:04 TIBC 245 mcg/dl 08/18/23 05:04 % Saturation 15.5 % (20-50) L 08/18/23 05:04 Unsat Iron Binding 207 ug/dL (112-347) 08/18/23 05:04 Ferritin 251 ng/mL (15-150) H 08/18/23 05:04 Total Bilirubin 0.3 mg/dL (0.15-1.2) 08/18/23 05:04 AST 34 U/L (0-32) H 08/18/23 05:04 ALT 31 U/L (0-33) 08/18/23 05:04 Alkaline Phosphatase 102 U/L (35-105) 08/18/23 05:04 Troponin T Baseline 43 ng/L (0-10) H 08/02/23 17:51 Troponin T 120 Minute 47.08 ng/L (0-10) H 08/02/23 20:05 Delta Troponin T 4.08 ABS# (0-10) 08/02/23 20:05 Troponin T Hi Sens 6Hr 47.70 ng/L (0-10) H 08/02/23 23:47 Troponin T Hi Sens 6Hr Delta 4.70 ng/L (0-12) 08/02/23 23:47 NT-Pro-B Natriuret Pep 5221 pg/mL (0-125) H 08/16/23 04:36 Total Protein 5.0 g/dL (6.6-8.7) L 08/18/23 05:04 Albumin 2.8 g/dL (3.5-5.2) L 08/18/23 05:04 Globulin 2.2 g/dL (1.3-4.6) 08/18/23 05:04 Vitamin B12 799 pg/mL (232-1245) 08/04/23 04:45 25-OH Vitamin D Total 35 ng/mL (30-100) 08/04/23 04:45 Procalcitonin 0.47 ng/mL (0-0.5) 08/04/23 04:45 Urine Color Dark yellow (Yellow) 07/25/23 11:54 Urine Appearance Hazy (CLEAR) A 07/25/23 11:54 Urine pH 5 (5-7) 07/25/23 11:54 Ur Specific [place] 1.020 (1.005-1.030) 07/25/23 11:54 Urine Protein Trace (Negative) 07/25/23 11:54 Urine Glucose (UA) Norm (Normal) 07/25/23 11:54 Urine Ketones Negative (Negative) 07/25/23 11:54 Urine Blood Neg (Negative) 07/25/23 11:54 Urine Nitrate Negative (Negative) 07/25/23 11:54 Urine Bilirubin Neg (Negative) 07/25/23 11:54 Urine Urobilinogen Norm mg/dL (Negative) 07/25/23 11:54 Ur Leukocyte Esterase Negative (Negative) 07/25/23 11:54 Urine RBC 0-4 /hpf (0-2) H 07/25/23 11:54 Urine WBC 15-25 /hpf (0-5) H 07/25/23 11:54 Ur Squamous Epith Cells 10-15 /hpf (0-5) H 07/25/23 11:54 Ur Transition Epith Cell 5-10 /hpf 07/25/23 11:54 Amorphous Sediment Not Reportable 07/25/23 11:54 Urine Bacteria Trace /hpf (NONE) 07/25/23 11:54 Hyaline Casts 5-10 /lpf H 07/25/23 11:54 Urine Mucus Trace /hpf 07/25/23 11:54 Bronch Specimen Source Right lower lobe 08/06/23 07:50 Bronchial Fluid Color Slight pink 08/06/23 07:50 Bronchial Fluid Appearance Hazy (CLEAR) 08/06/23 07:50 Bronch Cells Counted 200 08/06/23 07:50 Bronchial Neutrophils 29.00 % (0.9-2.3) H 08/06/23 07:50 Bronchial Lymphocytes 3.00 % (10.71-12.91) L 08/06/23 07:50 Bronchial Eosinophils 1.00 % (0.13-0.25) H 08/06/23 07:50 Bronchial Macrophages 67.00 % (83.6-86.8) L 08/06/23 07:50 Bronchial Diff Comment Yes 08/06/23 07:50 Vancomycin Trough 12.0 ug/mL (10-15) 07/28/23 14:08 Digoxin 0.6 ng/mL (0.6-1.2) 08/04/23 04:45 C. difficile Tox (PCR) Not detected (NOT DETECTED) 08/09/23 14:35 Coccidioides immitis CF <1:2 07/26/23 08:55 Coronavirus 229E (PCR) Not detected (NOT DETECT) 07/25/23 15:47 Hep Bs Antigen Non-reactive (Nonreactive) 08/05/23 03:45 Hep Bs Antibody < 3.5 (11.5-1000) L 08/05/23 03:45 Histo Mycel H Protein Negative 07/26/23 08:55 Histo Mycel M Protein Negative 07/26/23 08:55 U Histop Galact Ag Qnt <0.2 ng/mL 07/25/23 11:54 Influenza Type A Ag negative (Negative) 07/25/23 15:47 Influenza Type B Ag negative (Negative) 07/25/23 15:47 Myco Comp PCR Spec Srce Sputum 08/06/23 11:00 Pneumocystis Source Right lower lobe 08/06/23 07:50 Pneumocyst jirovecii PCR Not detected 08/06/23 07:50 Aspergillus Source Whole blood 08/06/23 03:36 Aspergillus Ag (EIA) Not detected 08/06/23 07:50 Aspergillus sp (PCR) Not detected 08/06/23 03:36 A. fumigatus (PCR) Not detected 08/06/23 03:36 A. galactomannan Ag EIA Not detected 07/26/23 08:55 A. galactomannan Ag Idx <0.50 08/06/23 07:50 A. terreus (PCR) Not detected 08/06/23 03:36 SARS-CoV-2 (PCR) Not detected (NOT DETECT) 07/25/23 15:47 SARS-CoV-2 Ag (Rapid) negative (Negative) 08/08/23 14:15 MRSA (PCR) Not detected (NOT DETECTED) 08/04/23 15:18 TB (QFT) Gold In Tube Negative (NEGATIVE) 07/26/23 08:55 TB Test (QFT) Nil 0.04 IU/mL 07/26/23 08:55 TB Test (QFT) Mitogen 8.86 IU/mL 07/26/23 08:55 TB Test Mitogen - Nil 0.00 IU/mL 07/26/23 08:55 TB Test TB -Nil <0.00 IU/mL 07/26/23 08:55 Beta-(1,3)-D-Glucan 123 pg/mL H 07/26/23 08:55 B-(1,3)-D-Glucan Intrp Positive A 07/26/23 08:55 M.tuberculosis Cmplx PCR Not detected 08/06/23 11:00 Misc Test Reference Cancelled 07/30/23 11:20 Blood Type O Positive 08/09/23 12:31 Rho(D) Type Rh positive 08/09/23 12:31 Antibody Screen Negative 08/09/23 12:31 Crossmatch See Detail 08/09/23 12:31 Vitals Last Vital Signs Temp 97.8 F 08/18/23 07:32 Pulse 96 08/18/23 08:18 Resp 20 H 08/18/23 08:18 BP 152/72 08/18/23 07:32 Pulse Ox 96 08/18/23 08:18 O2 Del Method Nasal Cannula 08/18/23 08:18 O2 Flow Rate 2.5 08/18/23 08:00 FiO2 30 08/18/23 04:00 Discharge Plan Discharge Patient Disposition: Xfer SNF Condition: Stable Prescriptions: New Pacerone 200 mg Tablet See Rx Instructions .ROUTE .COMPLEX 30 Days Qty: 45 0RF Rx Instructions: 200mg BID for 1 week, them 200mg once daily hydralazine 25 mg Tablet 25 mg PO TID 30 Days Qty: 90 0RF Eliquis 5 mg Tablet 5 mg PO BID@0900,2100 30 Days Qty: 60 0RF Humalog U-100 Insulin 100 unit/mL Solution See Rx Instructions .ROUTE .COMPLEX MDD 40 Qty: 10 0RF Rx Instructions: inject, subcut, TID with meals, based on low dose slding scale provided metoprolol tartrate 50 mg Tablet 25 mg PO BID@0900,2100 30 Days Qty: 15 0RF furosemide 40 mg Tablet 40 mg PO BID@08,16 30 Days Qty: 60 0RF Continued nitroglycerin [Nitrostat] 0.4 mg tablet, sublingual 0.4 mg SUBLINGUAL Q5M PRN (Reason: Chest Pain) Qty: 30 3RF Rx Instructions: MAX 3 DOSES PER EPISODE levothyroxine [Euthyrox] 150 mcg tablet 150 mcg PO QAM calcium carbonate [Calcium 600] 600 mg calcium (1,500 mg) tablet 600 mg PO DAILY@12 magnesium L-lactate 84 mg tablet extended release 84 mg PO BID Qty: 180 3RF cholecalciferol (vitamin D3) [Vitamin D3] 25 mcg (1,000 unit) Tablet 1,000 unit PO QAM docusate sodium [Stool Softener] 250 mg Capsule 250 mg PO QAM cyanocobalamin (vitamin B-12) [Vitamin B-12] 500 mcg Tablet 500 mcg PO QAM ferrous gluconate 324 mg (37.5 mg iron) tablet 324 mg PO DAILY@12 pantoprazole 40 mg tablet,delayed release (DR/EC) 40 mg PO BID tramadol 50 mg tablet 50 mg PO TID pyridostigmine bromide 60 mg tablet 60 mg PO QAM glucose 4 gram tablet,chewable 4 g PO PRN PRN (Reason: Hypoglycemia) Trelegy Ellipta 200-62.5-25 mcg blister with device 1 inh INHALATION DAILY Qty: 28 0RF atorvastatin 80 mg tablet 80 mg PO BEDTIME omega-3 fatty acids 1,000 mg Capsule 2,000 mg PO BEDTIME zinc acetate 50 mg (zinc) Capsule 50 mg PO DAILY@12 Vitamin B-2 100 mg Tablet 100 mg PO QAM pyridoxine (vitamin B6) 500 mg Tablet 500 mg PO QAM folic acid 1 mg tablet 1 mg PO QAM duloxetine 60 mg capsule,delayed release(DR/EC) 60 mg PO QAM Changed potassium chloride 20 mEq tablet extended release 20 meq PO BID Qty: 60 0RF Held methotrexate sodium 2.5 mg tablet 15 mg PO Q7D Qty: 90 0RF Hold Instructions: Resume on 10/01/23. hold unitl you see rheumatology Rx Instructions: ON SATURDAYS (6 tabs) Humira Pen 40 mg/0.8 mL pen injector kit See Rx Instructions .ROUTE .COMPLEX Qty: 2 2RF Hold Instructions: Resume on 10/01/23. hold unitl you see rheumatology Dose Instruction: INJECT 40 MG (0.8 ML) SUBCUTANEOUSLY EVERY 14 DAYS (TAKE ON SATURDAYS EVERY 14 DAYS) (BULK) Rx Instructions: INJECT 40 MG (0.8 ML) SUBCUTANEOUSLY EVERY 14 DAYS (TAKE ON SATURDAYS EVERY 14 DAYS) (BULK) Discontinued hydralazine 10 mg tablet 10 mg PO TID Qty: 270 3RF lisinopril 40 mg tablet 40 mg PO QPM Qty: 30 0RF Hold Instructions: Resume on 12/01/21. Rx Instructions: 1 yr supply was sent to [facility] in February acetaminophen [Arthritis Pain Reliever] 650 mg Tablet Extended Release 650 mg PO Q4H PRN (Reason: Pain) chlorpheniramine maleate [ChlorTabs] 4 mg Tablet See Rx Instructions .ROUTE .COMPLEX Rx Instructions: 4 MG PO TID THEN ALTERNATES WITH BENADRYL THEN NEXT DAY diphenhydramine HCl [Benadryl] 25 mg Capsule See Rx Instructions .ROUTE .COMPLEX Rx Instructions: 25MG PO TID THEN ALTERNATES WITH CHLORTAB THE NEXT DAY metoprolol succinate 100 mg tablet extended release 24 hr 100 mg PO QAM levofloxacin 750 mg tablet 750 mg PO DAILY@17 Rx Instructions: for 7 days (rx filled 07/20/23) insulin lispro 100 unit/mL insulin pen See Rx Instructions .ROUTE .COMPLEX Rx Instructions: INJECT 0-8 UNITS SUB-Q PER SLIDING SCALE MORNING AND EVENING DIRECTED NEEDED (SCALE 0-8 UNITS) (BULK) hydrocodone-acetaminophen 7.5-325 mg tablet 1 tab PO TID digoxin 125 mcg (0.125 mg) tablet See Rx Instructions .ROUTE .COMPLEX Rx Instructions: Alternate 1/2 Tab (62.5mcg) po daily and the next day 1 tab (125mcg) furosemide 20 mg tablet 20 mg PO QAM Discharge Orders: Discharge Order (Routine); Ordered 08/18/23 Ordered By: Jace Renee Referrals: [facility] [Outside] Davion Griggs MD [Primary Care Provider] - [facility], [Staff Physician] - 1 week Discharge Diet: Advance as tolerated Discharge Activity: Resume usual activity Patient Instructions: Dialysis Diet (DC), Hemodialysis (DC), Opioid Safety Activity Restrictions/Additional Instructions: -sacral decubitus ulcer stage 2-3, resposition every 2 hours, extensive wound c are, please have patient follow-up with wound care as outpatient this sacral decubitus ulcer needs to be managed aggressively, if not she has a high risk of morbidity and mortality ? Protein shakes 2-3 times daily --Please monitor your blood sugars closely -Monitor your blood sugars 3 times daily as after meals -Please record your blood sugars, and a blood sugar log -For your NovoLog -Please inject blood sugar after meals based on sliding scale provided -Do not inject insulin if you do not eat as hypoglycemia kills -This is a NovoLog sliding scale -Insulin sliding ?fingerstick? Insulin ?141-180?0 units/sq 181-220?2 units/sq ?221-260?4 units/sq ?261-300 6 units/sq ?301-350?8 units/sq ?351-400 10 units/sq ?401-450?12 units/sq >450? 14units/sq -If your blood sugar is greater than 500 go to the emergency room -If your blood sugar is less than 60 or at anytime you feel lightheaded or dizzy or diaphoretic or have chest palpitations check your blood sugar, and eat a hard candy or drink orange juice and go immediately to the emergency room -Remember hypoglycemia kills, so if his blood sugar is less than 60 we have to increase it by taking in a sugary meal such as a hard candy or orange juice and go to the emergency room -If you have any questions please call us where here to help -dialysis days sun//sat Discharge Attestations Time Spent in Discharge Care*: greater than 30 min Status at Discharge: Cognitive status at discharge: cognitively intact , Behavioral status at discharge: cooperative , Quality Metrics Clinical Quality Measures [ No reported AMI, CVA or VTE this stay] Coding Level of Care Code 58822 Total time (in minutes) for Discharge: 45 Diagnoses CYNTHIA (acute kidney injury) N17.9
[2023-08-18 13:39] LABS: Glucose Point of Care 121 mg/dL (70-110)
[2023-08-18] MEDS: epoetin alfa (ESRD) 5,000 UNIT in SYRINGE 1 EACH 1 UNIT IVP (14:09)
--- NOTE | 2023-08-18 15:07 | PC.NURSE ---
Called report to Pascale at [facility]. All questions addressed and answered.
== END 2023-08-18 14:35 | disposition skilled nursing facility (03) | DRG 207 ==
LOC: ER 12:16 → MEDSURG 19:01 → ICU 08-02 09:07 → MEDSURG 08-15 00:49
PROVIDERS: Hospitalist; Internal Medicine; Internal Medicine Pulmonary Disease; Surgery; Admitting Provider Student in an Organized Health Care Education/Training Program; Emergency Provider Family Medicine; PCP Family Medicine; Visit Provider Family Medicine
PROC: 0JH63XZ Insertion of Tunneled Vascular Access Device into Chest Subcutaneous Tissue and Fascia, Percutaneous Approach (ICD-10-PCS; principal; 2023-08-13 12:15)
DX: J18.9 Pneumonia, unspecified organism (principal); L89.153 Pressure ulcer of sacral region, stage 3; I50.33 Acute on chronic diastolic (congestive) heart failure; J96.02 Acute respiratory failure with hypercapnia; J96.01 Acute respiratory failure with hypoxia; N17.9 Acute kidney failure, unspecified; I13.0 Hypertensive heart and chronic kidney disease with heart failure and stage 1 through stage 4 chronic kidney disease, or unspecified chronic kidney disease; J44.0 Chronic obstructive pulmonary disease with (acute) lower respiratory infection; E66.2 Morbid (severe) obesity with alveolar hypoventilation; E87.29 Other acidosis; F33.9 Major depressive disorder, recurrent, unspecified; G93.40 Encephalopathy, unspecified; B37.0 Candidal stomatitis; N18.30 Chronic kidney disease, stage 3 unspecified; M06.00 Rheumatoid arthritis without rheumatoid factor, unspecified site; Z79.899 Other long term (current) drug therapy; Z99.81 Dependence on supplemental oxygen; I48.91 Unspecified atrial fibrillation; Z68.31 Body mass index [BMI] 31.0-31.9, adult; B96.89 Other specified bacterial agents as the cause of diseases classified elsewhere; D63.1 Anemia in chronic kidney disease; Z86.16 Personal history of COVID-19; Z87.440 Personal history of urinary (tract) infections; M79.7 Fibromyalgia; E03.9 Hypothyroidism, unspecified; F41.9 Anxiety disorder, unspecified; K74.60 Unspecified cirrhosis of liver; E78.5 Hyperlipidemia, unspecified; Z82.49 Family history of ischemic heart disease and other diseases of the circulatory system; Z80.9 Family history of malignant neoplasm, unspecified; Z87.891 Personal history of nicotine dependence; Z11.52 Encounter for screening for COVID-19; E87.6 Hypokalemia; E83.42 Hypomagnesemia
CPT/HCPCS: 36415; 36416; 36430; 36573; 36592; 36600; 51702; 71045; 71275; 74018; 76000; 77001; 80048; 80051; 80053; 80162; 80202; 80503; 81001; 82274; 82306; 82330; 82607; 82728; 82803; 82805; 82962; 83540; 83550; 83605; 83735; 83880; 84100; 84145; 84484; 85025; 85362; 85378; 85384; 85610; 85730; 86480; 86606; 86635; 86698; 86706; 86850; 86900; 86920; 87015; 87040; 87070; 87077; 87086; 87102; 87106; 87116; 87150; 87186; 87205; 87206; 87305; 87340; 87385; 87426; 87449; 87493; 87556; 87635; 87641; 87798; 87801; 87804; 89050; 90935; 92507; 92523; 92526; 92610; 93005; 93306; 94002; 94003; 94640; 94660; 94799; 96365; 96366; 96367; 96372; 96376; 97110; 97116; 97161; 97162; 97167; 97530; 97535; 99285; A4222; A4570; C1751; C9113; J0283; J0330; J0360; J0690; J1450; J1644; J1650; J1815; J1940; J2543; J2704; J2920; J3010; J3370; J3475; J3480; J3490; J7030; J7050; J7060; J7512; P9016; P9040; P9047; Q3014; Q4081; Q9967

== ENCOUNTER 2023-09-11 12:12 | Outpatient (CLI) | payer MEDICARE, SELFPAY ==
[2023-09-12 12:39] LABS: Cystatin C 2.68 mg/L (0.52-1.10); Estimated GFR (Cystatin C) 19 (> OR = 60)
== END 2023-09-11 12:13 | disposition home or self-care (01) ==
LOC: LAB 12:13
PROVIDERS: Visit Provider Internal Medicine Nephrology
DX: I25.10 Atherosclerotic heart disease of native coronary artery without angina pectoris (principal)
CPT/HCPCS: 36415; 82610

== ENCOUNTER → 2023-09-24 14:57 | Outpatient (BNVA) | payer MEDICARE, SELFPAY | PROVIDERS: Visit Provider Surgery | DX: N18.6 End stage renal disease (principal) | CPT/HCPCS: 99213 ==

== ENCOUNTER 2023-09-30 14:12 | Inpatient (IN) | payer MEDICARE, SELFPAY ==
[2023-09-30] VITALS (63 sets, daily range): BP systolic 83–168; BP diastolic 50–141; PULSE 77–135; RESP 11–33; TEMP 36.5–36.6; O2SAT 71–100; BMI 31.5
--- NOTE | 2023-09-30 14:21 | ECG_ITS ---
[facility] Test Date: 2023-09-30 Pat Name: Myesha Parker Department: Room: Gender: Female [employer]: : 1950 Requested By: Severo Ramirez Order Number: [id number] Wilbur MD: Victoriano White M.D. Measurements Intervals [place] Rate: 88 P: 0 MS: 0 QRS: 269 QRSD: 178 T: 74 QT: 433 QTc: 527 Interpretive Statements ATRIAL FIBRILLATION RIGHT AXIS DEVIATION [QRS AXIS > 100] RIGHT BUNDLE BRANCH BLOCK [120+ ms QRS DURATION, UPRIGHT V1, 40+ ms S IN I/aVL/V4/V5/V6] Compared to ECG 08/08/2023 10:39:23 Right-axis deviation now present Left anterior fascicular block no longer present Myocardial infarct finding no longer present Electronically Signed On 10-01-2023 8:37:03 SIDEROGRAPHER by Victoriano White M.D. [id number] f
--- NOTE | 2023-09-30 14:26 | XRR_ITS ---
PROCEDURE INFORMATION: Exam: XR Chest Exam date and time: 09/30/2023 2:45 PM Age: 73 years old Clinical indication: Patient HX: Dyspnea; SOB; Copd TECHNIQUE: Imaging protocol: Radiologic exam of the chest. Views: 1 view. COMPARISON: CR XR chest 1V portable [id number] 07/30/2023 3:06 PM FINDINGS: Tubes, catheters and devices: Interval placement right IJ dialysis catheter with tip in SVC. Lungs: Small amount of residual aerated right lung. Small left pleural effusion. Left basilar atelectasis and/or airspace disease. Mild pulmonary vascular congestion. Pleural spaces: No pneumothorax. Interval increase in large right pleural effusion. Heart/Mediastinum: Unremarkable. Bones/joints: No significant pathology. XR/XR chest 1V portable [id number] IMPRESSION: Interval placement of right IJ dialysis catheter. Interval increase in right pleural effusion.
[2023-09-30 14:35] LABS: Basophils % 0.5 %; Eosinophils # 0.1 10^3/uL (0.0-0.8); Eosinophils % 0.9 %; Hematocrit 27.5 % (36-47); Lymphocytes # 0.8 10^3/uL (0.8-4.8); Lymphocytes % 9.4 %; Mean Corpuscular HGB Conc 29.5 g/dL (30-55); Mean Corpuscular Hemoglobin 29.6 pg (27-33); Mean Corpuscular Volume 100.4 fl (85-98); Mean Platelet Volume 9.6 fL (7.4-10.4); Monocytes # 0.7 10^3/uL (0.2-0.9); Monocytes % 8.5 %; Neutrophils # 6.44 10^3/uL (1.8-7.7); Neutrophils % 79.5 %; Nucleated Red Blood Cells % 0 %; Platelet Count 286 10^3/cmm (157-399); Red Blood Count 2.74 10^6/uL (3.85-5.65)
[2023-09-30 14:47] LABS: ABG PH Result 7.26 (7.35-7.45); Arterial Blood Gas Hematocrit 25.3 % (37-47); Blood Gas Operator Identificat AMH; Blood Gas Sample Site Brachial, right; Blood Gas Sample Type Arterial; Carboxyhemoglobin 2.2 %THgb (0.4-20.1); HCO3 ABG 35.4 mmol/L (22-26); HGB O2 Sat 85.7 % (95-100); Methemoglobin 0.7 % (0.4-1.5); Oxygen Device NC; PO2 ABG 61.4 mmHg (80.0-100.0); PO2 FiO2 Ratio Arterial Blood 0; Total Hemoglobin 8.3 g/dL (12-16)
[2023-09-30 14:48] LABS: ABG PCO2 78.3 mmHg (35-45)
[2023-09-30 14:50] LABS: INR 1.14 (0.8-1.2)
[2023-09-30 14:54] LABS: Lactic Sepsis W/Reflex 1.6 mmol/L (0.5-2.2)
[2023-09-30 14:58] LABS: Troponin(5th) Baseline 187 ng/L (0-10)
[2023-09-30 15:06] LABS: NT Pro B Type Natriuretic Pept 21509 pg/mL (0-450); Procalcitonin 0.21 ng/mL (0-0.5)
[2023-09-30 15:17] LABS: Alanine Aminotransferase 30 U/L (0-33); Albumin Level 3.5 g/dL (3.5-5.2); Alkaline Phosphatase 137 U/L (35-105); Blood Urea Nitrogen 80 mg/dL (8-23); Calcium 9.7 mg/dL (8.5-10.5); Carbon Dioxide 33 mmol/L (22-29); Chloride 92 mmol/L (98-107); Globulin 2.6 g/dL (1.3-4.6); Glucose 190 mg/dL (65-115); Osmolality Calculated 313 mOsm/kg (285-295); Sodium 137 mmol/L (136-145); Total Bilirubin 0.3 mg/dL (0.15-1.2); Total Protein 6.1 g/dL (6.6-8.7)
[2023-09-30 15:18] LABS: Anion Gap 17.3 (5-19); Aspartate Amino Transferase 42 U/L (0-32); Potassium 5.3 mmol/L (3.5-5.1)
--- NOTE | 2023-09-30 15:36 | PC.PHAR ---
PTS MAR FROM [facility] SHOWS ELIQUIS 2.5 MG BID DISCONTINUED 09/24/23 AND POTASSIUM IS NO LONGER LISTED ON PTS MAR-TRAMADOL 50 ALSO SHOWS DISC.
--- NOTE | 2023-09-30 15:57 | W.ED.SOB ---
HPI - SOB/Dyspnea General: Chief Complaint: Shortness of Breath/Dyspnea Stated Complaint: SOB Time Seen by Provider: 09/30/23 14:25 History of Present Illness: HPI Narrative: 73-year-old female presents to the emergency department via EMS personnel secondary to feeling like she is having increased shortness of breath. She states that she feels like she cannot take a deep breath and is low on her oxygen. She does appear to be in acute respiratory distress at present. She is accompanied by her who states that the patient was previously hospitalized for respiratory failure and intubated at that time. He states that she had been receiving dialysis because her kidneys had shut down and she has recently been advised that her kidneys are working much better and that her last dialysis was approximately 1 and half weeks ago. He states that her physician had planned to discontinue her temporary dialysis catheter tomorrow. He states that the patient had become increasingly short of breath over the last 24 hours to the point where she was getting fatigued and was only able to maintain 4-5 word sentences. Review of Systems General: Reports: 10 or more systems reviewed and unremarkable except in HPI and below Const: Reports: fatigue and malaise Resp: Reports: dyspnea, non-productive cough and wheezing PFSH ED PFSH: Medical History Major depressive disorder, recurrent episode, moderate with anxious distress Duodenal ulcer due to bacteria Psychiatric care Coronary artery disease Immunization counseling High risk medication use Chronic knee pain Chronic low back pain COVID-14 August 2020 Seronegative rheumatoid arthritis of both hands Intermittent atrial fibrillation Poorly controlled diabetes mellitus UTI (urinary tract infection) CHF exacerbation Narrow complex tachycardia Inflammatory arthritis Osteoarthritis of knees, bilateral Fibromyalgia Lung nodule Unstable angina Low back pain of over 3 months duration Urgency incontinence Left renal mass COPD (chronic obstructive pulmonary disease) Oxygen dependent, 2 L at baseline Anxiety and depression Hypothyroidism Liver cirrhosis Hyperlipidemia Hypertension Recurrent UTI Surgical History History of cholecystectomy History of thyroid surgery History of cardiac cath History of hysterectomy History of knee replacement Family History Other CAD (coronary artery disease) Cancer Denies family history of Anesthesia complication Bleeding disorder Social History Smoking and tobacco/nicotine status: former use of tobacco/nicotine Quit status (tobacco/nicotine): has quit using Year quit tobacco: 2005 Second hand smoke exposure: No Alcohol intake: never Substance/Drug Use: never Adopted: No Caregiver/support person: No Lives independently: No Household members: spouse Marital status: Current occupational status: retired Current gender identity: Female Physical Exam Narrative: EXAM NARRATIVE: Constitutional: the patient appears well nourished and of normal development. Vital signs as documented. Severe respiratory distress at present.. Alert and oriented-to person, place and situation. Head, eyes, ears, nose, mouth, throat: Normocephalic, atraumatic. Pupils-equal, round, reactive to light. No scleral icterus. Normal-appearing external ears. Normal appearing nasal turbinates, no drainage. No obvious oral lesions, posterior oropharynx without erythema or exudates. Neck: Supple, trachea is midline, no lymphadenopathy, no jugular venous distension, thyromegaly, or carotid bruits. Carotid upstrokes are brisk bilaterally. Lungs: Diminished significantly on the right very coarse breath sounds throughout, right greater than left symmetrical rise and fall of chest, obvious signs of increased work of breathing at present. Cardiac: Atrial fibrillation noted, positive S1, S2. No murmurs, rubs or gallops that I can appreciate Abdomen: Soft, non-tender to palpation, normal active bowel sounds to all quadrants. No palpable masses, no organomegaly and abdominal bruits. Extremities: 2+ pulses in the upper extremities that are equal bilaterally, 2+ pulses in the lower extremities that are equal bilaterally. 1+ bilateral lower extremity edema.. Moves all extremities well, sensation to all extremities are noted. Skin: Warm, dry, intact. Course Vital Signs: Vital signs: Vital Signs Temperature 97.8 F 09/30/23 14:17 Pulse Rate 135 H 09/30/23 17:48 Respiratory Rate 33 H 09/30/23 14:17 Blood Pressure 137/63 09/30/23 17:48 Pulse Oximetry 96 09/30/23 17:48 Oxygen Delivery Me thod BiPAP 09/30/23 17:48 Oxygen Flow Rate 4 09/30/23 14:17 Fraction of Inspir ed Oxygen 60 09/30/23 17:40 MDM - SOB/Dyspnea Medical Decision Making Physical exam completed and documented, I will obtain a CBC, CMP, blood cultures, procalcitonin and lactic acid, two-view chest x-ray and a urinalysis. Differential diagnosis includes community-acquired pneumonia, viral illness, acute exacerbation of chronic pulmonary disease, CHF exacerbation, respiratory failure, NSTEMI. Medical Records I reviewed the patient's medical records. Lab Data I reviewed the patient's lab results. 09/30/23 14:21 09/30/23 14:21 Labs/Radiology: Radiology Impressions Chest X-Ray 09/30/23 14:26 IMPRESSION: Interval placement of right IJ dialysis catheter. Interval increase in right pleural effusion. Laboratory Results WBC 8.10 10^3/uL (3.29-11.43) 09/30/23 14:21 RBC 2.74 10^6/uL (3.85-5.65) L 09/30/23 14:21 Hgb 8.10 g/dL (11.27-16.99) L 09/30/23 14:21 Hct 27.5 % (36-47) L 09/30/23 14:21 MCV 100.4 fl (85-98) H 09/30/23 14:21 MCH 29.6 pg (27-33) 09/30/23 14:21 MCHC 29.5 g/dL (30-55) L 09/30/23 14:21 RDW 20.0 % (12.1-15.1) H 09/30/23 14:21 Plt Count 286 10^3/cmm (157-399) 09/30/23 14:21 MPV 9.6 fL (7.4-10.4) 09/30/23 14:21 Neut % (Auto) 79.5 % 09/30/23 14:21 Lymph % (Auto) 9.4 % 09/30/23 14:21 Johnson % (Auto) 8.5 % 09/30/23 14:21 Eos % (Auto) 0.9 % 09/30/23 14:21 Baso % (Auto) 0.5 % 09/30/23 14:21 Neut # (Auto) 6.44 10^3/uL (1.8-7.7) 09/30/23 14:21 Lymph # (Auto) 0.8 10^3/uL (0.8-4.8) 09/30/23 14:21 Johnson # (Auto) 0.7 10^3/uL (0.2-0.9) 09/30/23 14:21 Eos # (Auto) 0.1 10^3/uL (0.0-0.8) 09/30/23 14:21 Baso # (Auto) 0.0 10^3/uL (0.0-0.1) 09/30/23 14:21 Nucleated RBC % (auto) 0 % 09/30/23 14:21 Nucleated RBCs # 0.0 /100WBC 09/30/23 14:21 PT 15.00 SECONDS (12.1-14.9) H 09/30/23 14:21 INR 1.14 (0.8-1.2) 09/30/23 14:21 Specimen Type Arterial 09/30/23 14:36 Sample Site Brachial, right 09/30/23 14:36 ABG pH 7.26 (7.35-7.45) L 09/30/23 14:36 ABG pCO2 78.3 mmHg (35-45) H* 09/30/23 14:36 ABG pO2 61.4 mmHg (80.0-100.0) L 09/30/23 14:36 ABG PO2/FiO2 Ratio 0 09/30/23 14:36 ABG HCO3 35.4 mmol/L (22-26) H 09/30/23 14:36 ABG Base Excess 7.0 mmol/L (-2.0-2.0) H 09/30/23 14:36 Memo Test N/a 09/30/23 14:36 Hematocrit 25.3 % (37-47) L 09/30/23 14:36 Hgb O2 Saturation 85.7 % (95-100) L 09/30/23 14:36 Carboxyhemoglobin 2.2 %THgb (0.4-20.1) 09/30/23 14:36 Methemoglobin 0.7 % (0.4-1.5) 09/30/23 14:36 Total Hemoglobin 8.3 g/dL (12-16) L 09/30/23 14:36 O2 Delivery Device Nc 09/30/23 14:36 O2 Liters/Min 6.0 % 09/30/23 14:36 FiO2 44.0 % 09/30/23 14:36 Building Equipment Operator ID [id number] 09/30/23 14:36 Sodium 137 mmol/L (136-145) 09/30/23 14:21 Potassium 5.3 mmol/L (3.5-5.1) H 09/30/23 14:21 Chloride 92 mmol/L (98-107) L 09/30/23 14:21 Carbon Dioxide 33 mmol/L (22-29) H 09/30/23 14:21 Anion Gap 17.3 (5-19) 09/30/23 14:21 BUN 80 mg/dL (8-23) H 09/30/23 14:21 Creatinine 2.3 mg/dL (0.5-0.9) H 09/30/23 14:21 GFR Calculation Not Reportable 09/30/23 14:21 Glucose 190 mg/dL (65-115) H 09/30/23 14:21 Calculated Osmolality 313 mOsm/kg (285-295) H 09/30/23 14:21 Lactic Acid 1.6 mmol/L (0.5-2.2) 09/30/23 14:21 Calcium 9.7 mg/dL (8.5-10.5) 09/30/23 14:21 Total Bilirubin 0.3 mg/dL (0.15-1.2) 09/30/23 14:21 AST 42 U/L (0-32) H 09/30/23 14:21 ALT 30 U/L (0-33) 09/30/23 14:21 Alkaline Phosphatase 137 U/L (35-105) H 09/30/23 14:21 Troponin T Baseline 187 ng/L (0-10) H* 09/30/23 14:21 Troponin T 120 Minute 166.6 ng/L (0-10) H 09/30/23 15:40 Delta Troponin T -20.4 ABS# (0-10) L 09/30/23 15:40 NT-Pro-B Natriuret Pep 98721 pg/mL (0-450) H 09/30/23 14:21 Total Protein 6.1 g/dL (6.6-8.7) L 09/30/23 14:21 Albumin 3.5 g/dL (3.5-5.2) 09/30/23 14:21 Globulin 2.6 g/dL (1.3-4.6) 09/30/23 14:21 Procalcitonin 0.21 ng/mL (0-0.5) 09/30/23 14:21 All radiology interpretation(s) finalized by discharge EKG Data EKG 1: Interpretation: Twelve-lead EKG obtained at 1421 and reviewed at 1425 demonstrates atrial fibrillation with a ventricular rate of 88 bpm, QRS duration 178, QT 433, QTc 479. Critical Care Time Critical Care Time: Critical Care Time: Yes Total Critical Care Time: 70 Attestation: The patients was emergently evaluated as this patient's presentation and case had a high probability of a clinically significant, sudden, or life threatening deterioration of this patient's initial critical presentation or condition which required my full and direct attention, intervention and personal management. Discharge Plan Discharge Patient Disposition: Admitted As Inpatient Admit Provider: Tim Robert Clinical Impression: Acute hypoxemic respiratory failure, Anemia, Congestive heart failure (CHF), Acute on chronic kidney failure Condition: Stable Coding Level of Care Code ED Pattern Carrier for Dougie Samson
--- NOTE | 2023-09-30 16:08 | P.HP_ITS ---
Providers/Chief Complaint 2 Primary Care Provider: Davion Griggs MD Chief Complaint: SOB History of Present Illness Myesha Parker is a 73 year old female who has multiple admissions in the past presented today with chief complaint of worsening of fluid overload and hypoxia. Patient is stating that she has been taken off dialysis because now she is making good amount of urine and does not have indication to go for dialysis on daily basis. At baseline she uses 3 L of oxygen and BiPAP at night, compliance with her BiPAP is questionable. She has history of A-fib not a candidate of anticoagulation secondary to GI bleed. Patient has poor functional status, poor nutritional status and she stays bedbound with sacral decubitus ulcer stage III history of rheumatoid arthritis on multiple immunosuppressive medications, on previous admission patient was intubated for respiratory failure secondary to volume overload and pneumonia As per the who was at the bedside that she has not used her BiPAP compliantly every night at the long term, her dialysis was stopped 3 weeks ago because of her adequate urine output and improvement of kidney function, they were in the process of getting turned dialysis catheter removed however today because of her worsening of mentation fatigue lethargy she was brought to the ER for further evaluation where she was diagnosed with acute hypoxic hypercarbic respiratory failure, Review of Systems 2 General: Reports: ROS unobtainable due to medical condition and ROS unobtainable due to mental status Medications/Allergies Home Medications Medication Instructions Recorded Confirmed Last Taken Type cholecalciferol (vitamin D3) 25 1,000 unit PO QAM 10/12/19 09/30/23 09/30/23 History mcg (1,000 unit) tablet (Vitamin D3) nitroglycerin 0.4 mg sublingual 0.4 mg sublingual Q5M PRN Chest 02/08/21 09/30/23 Unknown Rx tablet (Nitrostat) Pain #30 tabs cyanocobalamin (vitamin B-12) 500 500 mcg PO QAM 03/16/21 09/30/23 09/30/23 History mcg tablet (Vitamin B-12) docusate sodium 250 mg capsule 250 mg PO QAM 03/16/21 09/30/23 09/30/23 History (Stool Softener) calcium carbonate 600 mg calcium 600 mg PO DAILY@12 06/27/21 09/30/23 09/30/23 History (1,500 mg) tablet (Calcium) levothyroxine 150 mcg tablet 150 mcg PO QAM 06/27/21 09/30/23 09/30/23 History (Euthyrox) pantoprazole 40 mg tablet,delayed 40 mg PO BID 09/13/21 09/30/23 09/30/23 History release magnesium L-lactate 84 mg 84 mg PO BID #180 tabs 04/03/23 09/30/23 09/30/23 Rx tablet,extended release pyridostigmine bromide 60 mg tablet 60 mg PO QAM 04/17/23 09/30/23 09/30/23 History glucose 4 gram chewable tablet 4 g PO PRN PRN Hypoglycemia 06/17/23 09/30/23 Unknown History fluticasone fur. 200 mcg-umeclid 1 inh inhalation DAILY #28 ea 06/20/23 09/30/23 09/30/23 Rx 62.5 mcg-vilant 25 mcg inhalat.powder (Trelegy Ellipta) atorvastatin 80 mg tablet 80 mg PO BEDTIME 07/25/23 09/30/23 09/29/23 History duloxetine 60 mg capsule,delayed 60 mg PO QAM 07/25/23 09/30/23 09/30/23 History release folic acid 1 mg tablet 1 mg PO QAM 07/25/23 09/30/23 09/30/23 History omega-3 fatty acids 1,000 mg 2,000 mg PO BEDTIME 07/25/23 09/30/23 09/29/23 History capsule pyridoxine (vitamin B6) 500 mg 500 mg PO QAM 07/25/23 09/30/23 09/30/23 History tablet riboflavin (vitamin B2) 100 mg 100 mg PO QAM 07/25/23 09/30/23 09/30/23 History tablet (Vitamin B-2) zinc acetate 50 mg (zinc) capsule 50 mg PO DAILY@12 07/25/23 09/30/23 09/30/23 History insulin lispro 100 unit/mL See Rx Instructions .Route 08/17/23 09/30/23 09/30/23 Rx subcutaneous solution (Humalog .COMPLEX #10 mL U-100 Insulin) furosemide 40 mg tablet (Lasix) 80 mg PO DAILY 09/24/23 09/30/23 09/30/23 History hydralazine 25 mg tablet 25 mg PO TID 09/24/23 09/30/23 09/30/23 History hydrocodone 5 mg-acetaminophen 325 1 tab PO Q8H PRN Pain 09/24/23 09/30/23 09/30/23 History mg tablet insulin glargine 100 unit/mL (3 15 unit SUBCUT DAILY 09/24/23 09/30/23 09/29/23 History mL) subcutaneous pen (Lantus Solostar U-100 Insulin) acetaminophen 325 mg tablet 650 mg PO QID PRN Pain 09/30/23 09/30/23 Unknown History amiodarone 200 mg tablet 200 mg PO DAILY 09/30/23 09/30/23 09/30/23 History bisacodyl 10 mg rectal suppository 10 mg IA DAILY PRN Constipation 09/30/23 09/30/23 Unknown History (Dulcolax (bisacodyl)) meclizine 25 mg tablet 25 mg PO TID PRN Nausea And 09/30/23 09/30/23 09/29/23 History Vomiting metolazone 2.5 mg tablet See Rx Instructions .Route .COMPLEX 09/30/23 09/30/23 09/29/23 History metoprolol tartrate 25 mg tablet 25 mg PO BID 09/30/23 09/30/23 Unknown History nystatin 100,000 unit/gram topical 1 applic topical DAILY PRN Rash 09/30/23 09/30/23 Unknown History powder [place] [place] Allergies Allergy/AdvReac Type Severity Reaction Status Date / Time adhesive tape Allergy rash Verified 09/30/23 15:39 cinnamon Allergy sinus Verified 09/30/23 15:39 codeine Allergy unknown Verified 09/30/23 15:39 cedar Allergy sinus Uncoded 09/24/23 15:08 pine Allergy sinus Uncoded 09/24/23 15:08 pork food Allergy ADR-Nausea Uncoded 09/24/23 15:08 PFSH Acute 2 PFSH: Medical History Major depressive disorder, recurrent episode, moderate with anxious distress Duodenal ulcer due to bacteria Psychiatric care Coronary artery disease Immunization counseling High risk medication use Chronic knee pain Chronic low back pain COVID-14 August 2020 Seronegative rheumatoid arthritis of both hands Intermittent atrial fibrillation Poorly controlled diabetes mellitus UTI (urinary tract infection) CHF exacerbation Narrow complex tachycardia Inflammatory arthritis Osteoarthritis of knees, bilateral Fibromyalgia Lung nodule Unstable angina Low back pain of over 3 months duration Urgency incontinence Left renal mass COPD (chronic obstructive pulmonary disease) Oxygen dependent, 2 L at baseline Anxiety and depression Hypothyroidism Liver cirrhosis Hyperlipidemia Hypertension Recurrent UTI Surgical History History of cholecystectomy History of thyroid surgery History of cardiac cath History of hysterectomy History of knee replacement Family History Other CAD (coronary artery disease) Cancer Denies family history of Anesthesia complication Bleeding disorder Social History Smoking and tobacco/nicotine status: former use of tobacco/nicotine Quit status (tobacco/nicotine): has quit using Year quit tobacco: 2005 Second hand smoke exposure: No Alcohol intake: never Substance/Drug Use: never Adopted: No Caregiver/support person: No Lives independently: No Household members: spouse Marital status: Current occupational status: retired Current gender identity: Female Vitals/I&O/Wt Last Vital Signs Temp 97.8 F 09/30/23 14:17 Pulse 99 09/30/23 15:00 Resp 33 H 09/30/23 14:17 BP 135/72 09/30/23 14:17 Pulse Ox 94 09/30/23 15:00 O2 Del Method Nasal Cannula 09/30/23 14:17 O2 Flow Rate 4 09/30/23 14:17 FiO2 50 09/30/23 15:00 Weight last 48 hrs Weight 99.79 kg Physical Exam 2 Narrative: Morbidly obese Sacral ulcer Currently on BiPAP Able to follow commands to some extent Arousable to verbal stimuli is at the bedside Anasarca Abdomen distended FiO2 60% S1, S2 A-fib Data 09/30/23 14:21 09/30/23 14:21 A&P Assessment and plan (1) High risk medication use: (2) Polypharmacy: (3) Acute exacerbation of CHF (congestive heart failure): (4) Chronic atrial fibrillation: (5) UGIB (upper gastrointestinal bleed): (6) Duodenal ulcer due to bacteria: (7) Hyperkalemia: (8) Respiratory acidosis: (9) CYNTHIA (acute kidney injury): (10) Anemia: (11) Seronegative rheumatoid arthritis of both hands: (12) Acute encephalopathy: (13) Somnolence: (14) Acute and chronic respiratory failure with hypoxia: (15) Acute kidney injury superimposed on chronic kidney disease: Plan Acute COPD exacerbation Patient is fluid overloaded anasarca Start dialysis 3 weeks ago Acute hypoxic hypercarbic respite failure Repeating ABG Patient was intubated last time for similar reason Repeat ABGs on stat basis Admit to ICU Patient has no IV access, she was seen by the ER [id number] Patient is at risk of intubation, I will quickly take her to the ICU repeat ABG, request PICC line Patient needs stat dialysis, will consult nephro She has a tunneled dialysis catheter Hyperkalemia 5.3 Continue her insulin with consistent carb diet however reduce the dose of insulin due to worsening creatinine Sacral ulcer present on admission, stage III frequent position change, nursing care, Anasarca combination of diastolic heart failure and renal failure Patient is extremely noncompliant She was discharged to a long term last time She is full code is at the bedside At baseline patient is bedbound due to severe rheumatoid arthritis Patient not able to provide much history, patient was seen multiple times, at the bedside Attestations 2 Medical Necessity Statement*: More than 2 midnights anticipated Coding Level of Care Code Critical Care >/= 30 minutes Critical care time (in minutes): 50 The high probability of a clinically significant, sudden or life threatening deterioration, as referenced in this documentation, required my full and direct attention, intervention and personal management. The critical care time shown is in addition to time spent performing any reported separately billable procedures and includes the following: [x] Data and vital sign review and interpretation [x ] Patient assessment, examination and intervention [x] Medication orders and management [x] Patient/Family updates as able [x] Care Coordination and Documentation. Diagnoses High risk medication use Z79.899 Polypharmacy Z79.899 Acute exacerbation of CHF (congestive heart failure) I50.9 Chronic atrial fibrillation I48.20 UGIB (upper gastrointestinal bleed) K92.2 Duodenal ulcer due to bacteria K26.9; B96.89 Hyperkalemia E87.5 Respiratory acidosis E87.29 CYNTHIA (acute kidney injury) N17.9 Anemia D64.9 Seronegative rheumatoid arthritis of both hands M06.041; M06.042 Acute encephalopathy G93.40 Somnolence R40.0 Acute and chronic respiratory failure with hypoxia J96.21 Acute kidney injury superimposed on chronic kidney disease N17.9; N18.9
--- NOTE | 2023-09-30 16:26 | ECG_ITS ---
[facility] Test Date: 2023-09-30 Pat Name: Myesha Parker Department: Room: ICU11 Gender: Female Supply Chain Intern: : 1950 Requested By: Severo Ramirez Order Number: [id number] Wilbur MD: Victoriano White M.D. Measurements Intervals [place] Rate: 100 P: 0 TN: 0 QRS: 267 QRSD: 178 T: 73 QT: 440 QTc: 569 Interpretive Statements ATRIAL FIBRILLATION WITH RAPID VENTRICULAR RESPONSE RIGHT AXIS DEVIATION [QRS AXIS > 100] RIGHT BUNDLE BRANCH BLOCK [120+ ms QRS DURATION, UPRIGHT V1, 40+ ms S IN I/aVL/V4/V5/V6] POSSIBLE ANTERIOR MYOCARDIAL INFARCTION , PROBABLY OLD [30 ms Q WAVE IN V3/V4, OR R < 0.2 mV IN V4] Compared to ECG 09/30/2023 14:21:18 Myocardial infarct finding now present Electronically Signed On 10-01-2023 8:39:17 COMMERCIAL PRODUCER by Victoriano White M.D. [id number]
[2023-09-30 16:35] LABS: Troponin 5 2HR 166.6 ng/L (0-10); Troponin 5 2HR Delta -20.4 ABS# (0-10)
--- NOTE | 2023-09-30 16:36 | PC.NURSE ---
ULTRASOUND GUIDED IV'S UNSUCCESSFUL. DR. ESPINOZA AND DR. YEAGER NOTIFIED OF NEED FOR CENTRAL LINE. SHOBHA REQUESTED PICC TEAM, MEDICAL REPRESENTATIVE NOTIFIED OF NEED.
[2023-09-30 17:23] LABS: ABG PH Result 7.29 (7.35-7.45); Arterial Blood Gas Hematocrit 23.1 % (37-47); Base Excess ABG 9.4 mmol/L (-2.0-2.0); Blood Gas Operator Identificat GD; Blood Gas Sample Site Brachial, right; Blood Gas Sample Type Arterial; Carboxyhemoglobin 1.4 %THgb (0.4-20.1); HCO3 ABG 37.4 mmol/L (22-26); HGB O2 Sat 97.4 % (95-100); Ionized Calcium Level - ABG 1.3 mmol/L (1.1-1.4); Methemoglobin 0.5 % (0.4-1.5); Oxygen Device BIPAP; Oxygen Saturation ABG 99.3; PO2 FiO2 Ratio Arterial Blood 0; Potassium Level - ABG 4.3 mmol/L (3.5-5.0); Total Hemoglobin 7.5 g/dL (12-16)
[2023-09-30 17:24] LABS: ABG PCO2 78.3 mmHg (35-45)
[2023-09-30 18:24] LABS: ABG PH Result 7.35 (7.35-7.45); Arterial Blood Gas Hematocrit 24.2 % (37-47); Base Excess ABG 9.9 mmol/L (-2.0-2.0); Blood Gas Operator Identificat GD; Blood Gas Sample Site Brachial, right; Blood Gas Sample Type Arterial; Oxygen Device BIPAP; PO2 ABG 69.4 mmHg (80.0-100.0); PO2 FiO2 Ratio Arterial Blood 0
[2023-09-30 18:26] LABS: ABG PCO2 67.8 mmHg (35-45)
--- NOTE | 2023-09-30 18:29 | PC.NURSE ---
THIS NURSE ATTEMPTED IV INSERTION AT 1445 TWICE BY ULTRASOUND GUIDANCE ONCE WITHOUT, UNSUCCESSFUL ALL TIMES. TAYO BOYD ATTEMPTED IV INSERTION AT 1500, UNSUCCESSFUL. PROMOTIONS SPECIALIST CONTACTED FOR IV INSERTION AT 1545 PROMOTIONS SPECIALIST ATTEMPTED INSERTION 4 TIMES BY ULTRASOUND, ONCE WITHOUT, UNSUCCESSFUL ALL TIMES. DR. ESPINOZA NOTIFIED OF NEED FOR CENTRAL LINE.
--- NOTE | 2023-09-30 18:44 | P.CONIM_ITS ---
Providers/Reason For Consult 2 Consulting Physician/Specialty*: [facility]/Nephrology Reason for Consult*: ESRD Attending Physician: Tim Robert MD Primary Care Provider: Davion Griggs MD History of Present Illness History of Present Illness Myesha Parker is a 73 year old female with PMH of HTN , CAD , ESRD - stopped HD 3 weeks due to possible renal recovery and pt now presents with hypoxia , SOB . Chest x-ray showed pulmonary edema and pleural effusions. Review of Systems 2 Narrative: OTHER ROS NEGATIVE Medications/Allergies Home Medications Medication Instructions Recorded Confirmed Last Taken Type cholecalciferol (vitamin D3) 25 1,000 unit PO QAM 10/12/19 09/30/23 09/30/23 History mcg (1,000 unit) tablet (Vitamin D3) nitroglycerin 0.4 mg sublingual 0.4 mg sublingual Q5M PRN Chest 02/08/21 09/30/23 Unknown Rx tablet (Nitrostat) Pain #30 tabs cyanocobalamin (vitamin B-12) 500 500 mcg PO QAM 03/16/21 09/30/23 09/30/23 History mcg tablet (Vitamin B-12) docusate sodium 250 mg capsule 250 mg PO QAM 03/16/21 09/30/23 09/30/23 History (Stool Softener) calcium carbonate 600 mg calcium 600 mg PO DAILY@12 06/27/21 09/30/23 09/30/23 History (1,500 mg) tablet (Calcium) levothyroxine 150 mcg tablet 150 mcg PO QAM 06/27/21 09/30/23 09/30/23 History (Euthyrox) pantoprazole 40 mg tablet,delayed 40 mg PO BID 09/13/21 09/30/23 09/30/23 History release magnesium L-lactate 84 mg 84 mg PO BID #180 tabs 04/03/23 09/30/23 09/30/23 Rx tablet,extended release pyridostigmine bromide 60 mg tablet 60 mg PO QAM 04/17/23 09/30/23 09/30/23 History glucose 4 gram chewable tablet 4 g PO PRN PRN Hypoglycemia 06/17/23 09/30/23 Unknown History fluticasone fur. 200 mcg-umeclid 1 inh inhalation DAILY #28 ea 06/20/23 09/30/23 09/30/23 Rx 62.5 mcg-vilant 25 mcg inhalat.powder (Trelegy Ellipta) atorvastatin 80 mg tablet 80 mg PO BEDTIME 07/25/23 09/30/23 09/29/23 History duloxetine 60 mg capsule,delayed 60 mg PO QAM 07/25/23 09/30/23 09/30/23 History release folic acid 1 mg tablet 1 mg PO QAM 07/25/23 09/30/23 09/30/23 History omega-3 fatty acids 1,000 mg 2,000 mg PO BEDTIME 07/25/23 09/30/23 09/29/23 History capsule pyridoxine (vitamin B6) 500 mg 500 mg PO QAM 07/25/23 09/30/23 09/30/23 History tablet riboflavin (vitamin B2) 100 mg 100 mg PO QAM 07/25/23 09/30/23 09/30/23 History tablet (Vitamin B-2) zinc acetate 50 mg (zinc) capsule 50 mg PO DAILY@12 07/25/23 09/30/23 09/30/23 History insulin lispro 100 unit/mL See Rx Instructions .Route 08/17/23 09/30/23 09/30/23 Rx subcutaneous solution (Humalog .COMPLEX #10 mL U-100 Insulin) furosemide 40 mg tablet (Lasix) 80 mg PO DAILY 09/24/23 09/30/23 09/30/23 History hydralazine 25 mg tablet 25 mg PO TID 09/24/23 09/30/23 09/30/23 History hydrocodone 5 mg-acetaminophen 325 1 tab PO Q8H PRN Pain 09/24/23 09/30/23 09/30/23 History mg tablet insulin glargine 100 unit/mL (3 15 unit SUBCUT DAILY 09/24/23 09/30/23 09/29/23 History mL) subcutaneous pen (Lantus Solostar U-100 Insulin) acetaminophen 325 mg tablet 650 mg PO QID PRN Pain 09/30/23 09/30/23 Unknown History amiodarone 200 mg tablet 200 mg PO DAILY 09/30/23 09/30/23 09/30/23 History bisacodyl 10 mg rectal suppository 10 mg [place] DAILY PRN Constipation 09/30/23 09/30/23 Unknown History (Dulcolax (bisacodyl)) meclizine 25 mg tablet 25 mg PO TID PRN Nausea And 09/30/23 09/30/23 09/29/23 History Vomiting metolazone 2.5 mg tablet See Rx Instructions .Route .COMPLEX 09/30/23 09/30/23 09/29/23 History metoprolol tartrate 25 mg tablet 25 mg PO BID 09/30/23 09/30/23 Unknown History nystatin 100,000 unit/gram topical 1 applic topical DAILY PRN Rash 09/30/23 09/30/23 Unknown History powder ([facility]) Allergies Allergy/AdvReac Type Severity Reaction Status Date / Time adhesive tape Allergy rash Verified 09/30/23 15:39 cinnamon Allergy sinus Verified 09/30/23 15:39 codeine Allergy unknown Verified 09/30/23 15:39 cedar Allergy sinus Uncoded 09/24/23 15:08 pine Allergy sinus Uncoded 09/24/23 15:08 pork food Allergy ADR-Nausea Uncoded 09/24/23 15:08 PFSH Acute 2 PFSH: Medical History Major depressive disorder, recurrent episode, moderate with anxious distress Duodenal ulcer due to bacteria Psychiatric care Coronary artery disease Immunization counseling High risk medication use Chronic knee pain Chronic low back pain COVID-14 August 2020 Seronegative rheumatoid arthritis of both hands Intermittent atrial fibrillation Poorly controlled diabetes mellitus UTI (urinary tract infection) CHF exacerbation Narrow complex tachycardia Inflammatory arthritis Osteoarthritis of knees, bilateral Fibromyalgia Lung nodule Unstable angina Low back pain of over 3 months duration Urgency incontinence Left renal mass COPD (chronic obstructive pulmonary disease) Oxygen dependent, 2 L at baseline Anxiety and depression Hypothyroidism Liver cirrhosis Hyperlipidemia Hypertension Recurrent UTI Surgical History History of cholecystectomy History of thyroid surgery History of cardiac cath History of hysterectomy History of knee replacement Family History Other CAD (coronary artery disease) Cancer Denies family history of Anesthesia complication Bleeding disorder Social History Smoking and tobacco/nicotine status: former use of tobacco/nicotine Quit status (tobacco/nicotine): has quit using Year quit tobacco: 2005 Second hand smoke exposure: No Alcohol intake: never Substance/Drug Use: never Adopted: No Caregiver/support person: No Lives independently: No Household members: spouse Marital status: Current occupational status: retired Current gender identity: Female Vitals/I&O/Wt Last Vital Signs Temp 97.8 F 09/30/23 14:17 Pulse 135 H 09/30/23 17:48 Resp 33 H 09/30/23 14:17 BP 137/63 09/30/23 17:48 Pulse Ox 96 09/30/23 17:48 O2 Del Method BiPAP 09/30/23 17:48 O2 Flow Rate 4 09/30/23 14:17 FiO2 60 09/30/23 17:40 Weight last 48 hrs Weight 99.79 kg Physical Exam 2 Narrative: awake , alert in distress Data 10/01/23 03:37 10/01/23 03:37 A&P Assessment and plan (1) End stage renal disease: Plan 1. End-stage renal disease: Patient stopped dialysis 3 weeks ago due to possible renal recovery, now presents with volume overload. She is hypoxic., Plan for emergent HD today and ultrafiltration as tolerated -Patient likely will need twice a week dialysis -2 g sodium restriction and 1500 mill fluid restriction 2. Hypertension: Restart home meds, monitor 3. Anemia: Hemoglobin low, will order CARY 4. Acute on chronic respiratory failure, secondary to volume overload , consider thoracentesis Patient evaluated using audiovisual cart. Time spent 40 minutes Consult Attestations 2 Medical Necessity Statement: per mediicne team Coding Level of Care Code Acute Code for Chg Fwd Diagnoses End stage renal disease N18.6
--- NOTE | 2023-09-30 18:45 | PC.NURSE ---
recieved from er iv site not functional at this time Dr gutierrez here abgs done remains on bipap and placed on monitor and monitor vital signs unable to do any type of assessment as assisting Dr to inserted femoral line right groin
--- NOTE | 2023-09-30 19:00 | PM.ACPR ---
Acute Procedures Central Line Placement: Right Femoral: Time out performed: Yes Patient placed on monitor/pulse ox: Yes MD prep: mask, gown and gloves Central line prep: Povidone-Iodine 1%, Chlorhexidine scrub and sterile drapes applied Local anesthesia used: lidocaine 1% Amount of anesthesia used (ml): 2.5 Ultrasound used for placement: Yes Central line lumen inserted: triple Post procedure: sutured in place, good blood return, all ports aspirated, flushed, capped and sterile dressing applied Post procedure x-ray: tip of catheter in good position Patient tolerated procedure: well Complications: none Additional comments: Consent was taken because we do not have any access to give her IV medications both agreed for central line placement and intubation if needed
--- NOTE | 2023-09-30 19:02 | XRR_ITS ---
PROCEDURE INFORMATION: Exam: XR Right Hip Exam date and time: 09/30/2023 7:11 PM Age: 73 years old Clinical indication: Device placement; Patient HX: Check S/P RT femoral central line placement; Additional info: RT femoral vein centarl line placement TECHNIQUE: Imaging protocol: Radiologic exam of the right hip. Views: 1 view hip with pelvis when performed. COMPARISON[place] [id number] 04/16/2022 10:51 PM FINDINGS: Bones/joints: No evidence of fracture or subluxation. Soft tissues: Right femoral vascular catheter in place with tip in the region of the right external iliac vein. No gross soft tissue abnormality. XR/XR hip RT 1V wo/w pel [id number] IMPRESSION: 1. Right femoral vascular catheter in place with tip in the region of the right external iliac vein. Consider correlation with pulsatility and blood glass to exclude intra-arterial placement
--- NOTE | 2023-09-30 19:06 | PC.NURSE ---
hand off to radiographer angiogram as dialysis nurse in room setting up for emergent dyalisis at this time
--- NOTE | 2023-09-30 19:17 | PC.NURSE ---
DR. ESPINOZA PLACED ULTRASOUND GUIDED IV AT 1645. DR. ESPINOZA STATED LINE WAS PATENT UPON PLACEMENT. THIS NURSE FLUSHED LINE AFTER PLACEMENT, IV INFILTRATED IMMEDIATELY.
[2023-09-30] MEDS: heparin, porcine 1,000 unit/mL INJ 10 mL 1000 UNIT IV (19:43)
[2023-09-30 20:50] LABS: Troponin 5 6HR Delta 4.9 ng/L (0-12)
[2023-09-30 20:53] LABS: Troponin 5 6HR 191.9 ng/L (0-10)
[2023-09-30 21:05] LABS: Hepatitis B Surface AB 25.2 (11.5-1000)
[2023-09-30 21:32] LABS: Hepatitis B Surface Antigen Non-Reactive (Nonreactive)
[2023-09-30] MEDS: heparin, porcine 1,000 unit/mL INJ 10 mL 10000 UNIT INTRACATH ×2 (22:03→22:57)
[2023-09-30 22:33] LABS: Glucose Point of Care 124 mg/dL (70-110)
--- NOTE | 2023-09-30 22:33 | PC.HD ---
Heparin 2000 units and 2100 units instilled into arterial and venous ports of HD catheter, respectively, at conclusion of treatment.
[2023-09-30] MEDS: HYDROcodone-acetaminophen 5-325 mg Tablet 1 TAB PO (22:54)
[2023-09-30] MEDS: omega-3 fatty acids 1,000 mg Capsule 2000 MG PO (22:55)
[2023-09-30] MEDS: metoprolol tartrate 25 mg Tablet PO (22:55)
[2023-09-30] MEDS: pantoprazole DR 40 mg Tablet PO (22:56)
[2023-09-30] MEDS: cefTRIAXone 1,000 MG in sodium chloride 0.9% (plus) 50 ML 100 MG IV (22:56)
[2023-10-01] VITALS (281 sets, daily range): BP systolic 65–135; BP diastolic 38–102; PULSE 73–120; RESP 10–48; TEMP 36.1–37; O2SAT 55–100
[2023-10-01] MEDS: norepinephrine 4 MG/250 ML BAG 7.5 MG IV (01:54)
--- NOTE | 2023-10-01 02:04 | PC.NURSE ---
Nurse notified Hospitalist Dr. Simpson that patient was hypotensive BP 80/[address] Simpson gave orders for Levophed gtt titrated to a MAP of 65.
[2023-10-01 04:11] LABS: Basophils % 0.5 %; Eosinophils # 0.1 10^3/uL (0.0-0.8); Eosinophils % 0.8 %; Hematocrit 24.2 % (36-47); Lymphocytes # 0.8 10^3/uL (0.8-4.8); Lymphocytes % 12.3 %; Mean Corpuscular HGB Conc 29.8 g/dL (30-55); Mean Corpuscular Hemoglobin 29.1 pg (27-33); Mean Platelet Volume 9.4 fL (7.4-10.4); Monocytes # 0.6 10^3/uL (0.2-0.9); Neutrophils # 4.85 10^3/uL (1.8-7.7); Neutrophils % 76.5 %; Nucleated Red Blood Cells % 0 %; Platelet Count 211 10^3/cmm (157-399); Red Blood Count 2.47 10^6/uL (3.85-5.65); Red Cell Distribution Width 19.5 % (12.1-15.1); White Blood Count 6.34 10^3/uL (3.29-11.43)
[2023-10-01 04:42] LABS: Anion Gap 12.9 (5-19); Blood Urea Nitrogen 54 mg/dL (8-23); Calcium 9.3 mg/dL (8.5-10.5); Carbon Dioxide 33 mmol/L (22-29); Chloride 95 mmol/L (98-107); Creatinine Clr Calc Pharmacy 34.7736; Glucose 137 mg/dL (65-115); Magnesium 1.9 mg/dL (1.7-2.3); Osmolality Calculated 301 mOsm/kg (285-295); Phosphorus 3.5 mg/dL (2.5-4.5); Potassium 3.9 mmol/L (3.5-5.1); Sodium 137 mmol/L (136-145)
[2023-10-01] MEDS: levothyroxine 150 mcg Tablet PO (05:30)
[2023-10-01] MEDS: pyridostigmine 60 mg Tablet PO (05:30)
[2023-10-01] MEDS: duloxetine 60 mg Capsule PO (05:30)
[2023-10-01 05:34] LABS: ABG PCO2 52.7 mmHg (35-45); ABG PH Result 7.42 (7.35-7.45); Arterial Blood Gas Hematocrit 23.6 % (37-47); Base Excess ABG 8.8 mmol/L (-2.0-2.0); Blood Gas Operator Identificat JB; Blood Gas Sample Site Brachial, right; Blood Gas Sample Type Arterial; HCO3 ABG 34.2 mmol/L (22-26); Oxygen Device BIPAP; PO2 FiO2 Ratio Arterial Blood 0
[2023-10-01 05:36] LABS: Blood Gas Tidal Volume 0.45
[2023-10-01 07:33] LABS: Glucose Point of Care 137 mg/dL (70-110)
[2023-10-01] MEDS: ipratropium-albuterol 3 mL Neb INHALATION (09:03)
[2023-10-01] MEDS: pantoprazole DR 40 mg Tablet PO ×2 (09:14→17:07)
[2023-10-01] MEDS: FUROsemide 40 mg Tablet 80 MG PO (09:14)
[2023-10-01] MEDS: amiodarone 200 mg Tablet PO (09:15)
[2023-10-01] MEDS: insulin glargine 100 units/1 mL 5 UNIT SUBCUT (09:15)
[2023-10-01] MEDS: metoprolol tartrate 25 mg Tablet PO ×2 (09:15→17:07)
[2023-10-01] MEDS: FUROsemide 10 mg/mL SDV 4mL 40 MG IVP (10:31)
--- NOTE | 2023-10-01 11:05 | P.PN_ITS ---
Subjective 2 Subjective: doing better Medications: Reviewed: Yes Vitals/I&O/Wt Last Vital Signs Temp 97.6 F 10/01/23 07:00 Pulse 80 10/01/23 10:16 Resp 20 H 10/01/23 09:20 BP 107/72 10/01/23 09:30 Pulse Ox 93 10/01/23 10:16 O2 Del Method BiPAP 09/30/23 19:32 O2 Flow Rate 4 09/30/23 14:17 FiO2 35 10/01/23 10:16 09/30/23 10/01/23 10/01/23 22:59 06:59 14:59 Intake Total 300 / 300 50 / 350 0 / 0 Output Total 2800 / 2800 350 / 3150 Balance -2500 / -2500 -300 / -2800 0 / 0 Weight last 48 hrs Weight 112.491 kg Weight 112.5 kg Weight 113 kg Weight 99.79 kg Physical Exam 2 Narrative: awake , alert in distress Urinary Catheter Management: Manzanares: Cath Placed During This Visit: yes Reason for Continuing Indwelling Catheter: Accurate Measurement of Urinary Output in Critically Ill Patients Urinary Catheter Date of Insertion: 10/01/23 Urinary Catheter Time of Insertion: 00:00 Data 10/01/23 03:37 10/01/23 03:37 A&P Assessment and plan (1) End stage renal disease: Plan 1. End-stage renal disease: Patient stopped dialysis 3 weeks ago due to possible renal recovery, now presents with volume overload. She is hypoxic., s/p emergent HD lastnight , next hD in AM -Patient likely will need twice a week dialysis -2 g sodium restriction and 1500 mill fluid restriction 2. Hypertension: Restart home meds, monitor 3. Anemia: Hemoglobin low, will order CARY 4. Acute on chronic respiratory failure, secondary to volume overload , consider thoracentesis Patient evaluated using audiovisual cart. Time spent 40 minutes Attestations 2 Medical Necessity Statement*: per nano Coding Level of Care Code Acute Code for Chg Fwd Diagnoses End stage renal disease N18.6
[2023-10-01 11:12] LABS: Glucose Point of Care 152 mg/dL (70-110)
--- NOTE | 2023-10-01 11:19 | XR_ITS ---
WS: [id number] PORTABLE CHEST HISTORY: picc placement COMPARISON: 09/30/2023 Interval placement of a right-sided PICC line terminates in the SVC near the caval atrial junction. RIGHT lung is better expanded than on the prior study. There is still a small pleural effusion. Dialy sis catheter present. Cardiac size: Mildly enlarged cardiac silhouette. Mediastinum/Aorta: Atherosclerosis aorta. No osseous abnormality seen. IMPRESSION: 1. Interval placement of a right-sided PICC line in good position. 2. Improvement in the RIGHT pleural effusion. 3. Continued small RIGHT pleural effusion with mild pulmonary congestion.
[2023-10-01] MEDS: epoetin alfa 1000 Unit/0.05 mL (ESRD) 20000 UNIT SUBCUT (12:51)
[2023-10-01] MEDS: insulin lispro 100 unit/1 mL SUBCUT ×2 (12:51→17:08)
--- NOTE | 2023-10-01 13:46 | P.PN_ITS ---
Subjective 2 Subjective: Patient likely will need blood transfusion with her dialysis Currently on clear liquid diet Awake and alert Compensated hypercapnia No need of intubation as of now Monitor urine output Still fatigued and lethargic Will request PICC line to remove right femoral vein central line, No pulsatility, it is showing good venous return Overnight events noted Vitals/I&O/Wt Last Vital Signs Temp 97.6 F 10/01/23 07:00 Pulse 84 10/01/23 12:15 Resp 20 H 10/01/23 12:15 BP 99/72 10/01/23 12:15 Pulse Ox 90 10/01/23 11:51 O2 Del Method BiPAP 09/30/23 19:32 O2 Flow Rate 4 09/30/23 14:17 FiO2 35 10/01/23 11:51 09/30/23 10/01/23 10/01/23 22:59 06:59 14:59 Intake Total 300 / 300 50 / 350 340 / 340 Output Total 2800 / 2800 350 / 3150 Balance -2500 / -2500 -300 / -2800 340 / 340 Weight last 48 hrs Weight 112.491 kg Weight 112.5 kg Weight 113 kg Weight 99.79 kg Physical Exam 2 Narrative: Signs of fluid load improving Awake and alert Lethargic and fatigued Currently on BiPAP, will give her a break to let her eat Patient is taking time to follow commands, She is bedbound Sacral ulcer present admission, Abdomen soft Urinary Catheter Management: Manzanares: Cath Placed During This Visit: yes Reason for Continuing Indwelling Catheter: Accurate Measurement of Urinary Output in Critically Ill Patients Urinary Catheter Date of Insertion: 10/01/23 Urinary Catheter Time of Insertion: 00:00 Data 10/01/23 03:37 10/01/23 03:37 A&P Assessment and plan (1) High risk medication use: (2) Anxiety and depression: (3) Anemia: (4) Osteoarthritis of knees, bilateral: (5) Inflammatory arthritis: (6) Acute and chronic respiratory failure with hypoxia: (7) Chronic obstructive lung disease: (8) Physical deconditioning: (9) Acute on chronic kidney failure: (10) Respiratory acidosis: (11) UGIB (upper gastrointestinal bleed): (12) Chronic atrial fibrillation: Plan Acute on chronic anemia Will need PRBC with hemodialysis Continue dialysis sessions Currently patient is on albumin along Lasix Adjust AV vitaliy blocking agent and antihypertensive regimen Patient hypotensive requiring Levophed I do believe patient is requiring Levophed from volume reduction yesterday with underlying anemia I do not see any signs of sepsis Acute COPD exacerbation hypoxic hypercarbic respite failure: Currently compensated on BiPAP we will give her a break from BiPAP later eat this morning Bedbound with sacral ulcer present on admission Tunneled dialysis catheter in place Hyperkalemia: Improved Full code Patient has not been using her BiPAP at the nursing facility, recurrent admissions due to hypoxic hypercarbic respite failure, recent admission she was intubated with very difficult extubation I have empirically put her on ceftriaxone Right-sided PICC line placed today improvement in right-sided pleural effusion noted Attestations 2 Medical Necessity Statement*: Hoping to discharge her by Sunday or we are able to get her out of the ICU to [facility] Diagnoses High risk medication use Z79.899 Anxiety and depression F41.9; F32.9 Anemia D64.9 Osteoarthritis of knees, bilateral M17.0 Inflammatory arthritis M19.90 Acute and chronic respiratory failure with hypoxia J96.21 Chronic obstructive lung disease J44.9 Physical deconditioning R53.81 Acute on chronic kidney failure N17.9; N18.9 Respiratory acidosis E87.29 UGIB (upper gastrointestinal bleed) K92.2 Chronic atrial fibrillation I48.20
[2023-10-01] MEDS: acetaminophen 325 mg Tablet 650 MG PO (14:06)
[2023-10-01] MEDS: cefTRIAXone 1,000 MG in sodium chloride 0.9% (plus) 50 ML 100 MG IV (17:07)
[2023-10-01 20:34] LABS: Glucose Point of Care 235 mg/dL (70-110)
[2023-10-01] MEDS: HYDROcodone-acetaminophen 5-325 mg Tablet 1 TAB PO (21:05)
[2023-10-01] MEDS: omega-3 fatty acids 1,000 mg Capsule 2000 MG PO (21:07)
[2023-10-01 21:46] LABS: Glucose Point of Care 161 mg/dL (70-110)
[2023-10-02] VITALS (292 sets, daily range): BP systolic 71–116; BP diastolic 30–87; PULSE 69–105; RESP 16–47; TEMP 36.2–36.9; O2SAT 59–100
[2023-10-02 05:17] LABS: Basophils # 0.1 10^3/uL (0.0-0.1); Basophils % 0.9 %; Eosinophils # 0.1 10^3/uL (0.0-0.8); Hematocrit 24.4 % (36-47); Lymphocytes # 0.8 10^3/uL (0.8-4.8); Lymphocytes % 13.7 %; Mean Corpuscular HGB Conc 29.5 g/dL (30-55); Mean Corpuscular Hemoglobin 29.3 pg (27-33); Mean Corpuscular Volume 99.2 fl (85-98); Mean Platelet Volume 9.3 fL (7.4-10.4); Monocytes # 0.5 10^3/uL (0.2-0.9); Monocytes % 9.1 %; Neutrophils # 4.02 10^3/uL (1.8-7.7); Neutrophils % 73.6 %; Nucleated Red Blood Cells % 0 %; Platelet Count 219 10^3/cmm (157-399); Red Blood Count 2.46 10^6/uL (3.85-5.65); Red Cell Distribution Width 19.6 % (12.1-15.1); White Blood Count 5.47 10^3/uL (3.29-11.43)
[2023-10-02 05:44] LABS: Anion Gap 14.6 (5-19); Blood Urea Nitrogen 60 mg/dL (8-23); Calcium 9.7 mg/dL (8.5-10.5); Carbon Dioxide 32 mmol/L (22-29); Chloride 96 mmol/L (98-107); Glucose 93 mg/dL (65-115); Osmolality Calculated 305 mOsm/kg (285-295); Potassium 3.6 mmol/L (3.5-5.1); Sodium 139 mmol/L (136-145)
[2023-10-02] MEDS: levothyroxine 150 mcg Tablet PO (05:47)
[2023-10-02] MEDS: pyridostigmine 60 mg Tablet PO (05:47)
[2023-10-02] MEDS: duloxetine 60 mg Capsule PO (05:47)
[2023-10-02] MEDS: HYDROcodone-acetaminophen 5-325 mg Tablet 1 TAB PO ×2 (05:49→21:36)
[2023-10-02 07:42] LABS: Glucose Point of Care 97 mg/dL (70-110)
[2023-10-02] MEDS: heparin, porcine 1,000 unit/mL INJ 10 mL 1000 UNIT IV (07:43)
[2023-10-02] MEDS: pantoprazole DR 40 mg Tablet PO ×2 (08:11→17:58)
[2023-10-02] MEDS: amiodarone 200 mg Tablet PO (08:11)
[2023-10-02] MEDS: metoprolol tartrate 25 mg Tablet PO ×2 (08:11→17:58)
[2023-10-02] MEDS: insulin glargine 100 units/1 mL 5 UNIT SUBCUT (08:12)
[2023-10-02] MEDS: FUROsemide 40 mg Tablet 80 MG PO (08:12)
--- NOTE | 2023-10-02 09:04 | P.PN_ITS ---
Subjective 2 Subjective: no new c/o , Medications: Reviewed: Yes Vitals/I&O/Wt Last Vital Signs Temp 97.9 F 10/02/23 07:35 Pulse 91 10/02/23 08:03 Resp 16 10/02/23 08:03 BP 82/56 10/02/23 07:35 Pulse Ox 92 10/02/23 08:03 O2 Del Method Nasal Cannula 10/02/23 08:03 O2 Flow Rate 2.5 10/02/23 08:03 FiO2 35 10/01/23 11:51 10/01/23 10/02/23 10/02/23 22:59 06:59 14:59 Intake Total 575 / 915 Output Total 550 / 550 250 / 800 Balance 25 / 365 -250 / 115 Weight last 48 hrs Weight 110.5 kg Weight 112.491 kg Weight 112.5 kg Weight 113 kg Weight 99.79 kg Physical Exam 2 Narrative: awake , alert in distress Urinary Catheter Management: Manzanares: Cath Placed During This Visit: yes Reason for Continuing Indwelling Catheter: Accurate Measurement of Urinary Output in Critically Ill Patients Urinary Catheter Date of Insertion: 10/01/23 Urinary Catheter Time of Insertion: 00:00 Data 10/02/23 04:51 10/02/23 04:51 A&P Assessment and plan (1) End stage renal disease: Plan 1. End-stage renal disease: Patient stopped dialysis 3 weeks ago due to possible renal recovery, now presents with volume overload. She is hypoxic., s/p emergent HD lastnight , next hD today -Patient likely will need twice a week dialysis -2 g sodium restriction and 1500 mill fluid restriction 2. Hypertension: Restart home meds, monitor 3. Anemia: Hemoglobin low, will order CARY 4. Acute on chronic respiratory failure, secondary to volume overload , consider thoracentesis Patient evaluated using audiovisual cart. Time spent 40 minutes Attestations 2 Medical Necessity Statement*: per mediicne team Coding Level of Care Code Acute Code for Chg Fwd Diagnoses End stage renal disease N18.6
[2023-10-02 11:32] LABS: Glucose Point of Care 178 mg/dL (70-110)
[2023-10-02] MEDS: acetaminophen 325 mg Tablet 650 MG PO (11:38)
[2023-10-02] MEDS: insulin lispro 100 unit/1 mL SUBCUT (11:39)
--- NOTE | 2023-10-02 12:04 | PC.HD ---
Heparin 1000 units loading dose administered at 1155 via venous port of HD catheter per field sampling technician's orders.
--- NOTE | 2023-10-02 12:21 | PM.PN ---
Subjective Subjective: Patient is currently on 3 L No overnight events She is off Levophed She required Levophed mostly after dialysis If she is not requiring Levophed after dialysis we might be able to transfer her to [facility] Patient is from halfway which should be able to discharge her in next 24 to 48 hours Will touch this with nephro to see if they would recommend continuation of dialysis because it was stopped 3 weeks ago No fever Hypercapnia proved with use of BiPAP Vitals/I&O/Wt Last Vital Signs Temp 97.9 F 10/02/23 12:03 Pulse 88 10/02/23 12:03 Resp 25 H 10/02/23 12:03 BP 102/54 10/02/23 12:03 Pulse Ox 97 10/02/23 11:20 O2 Del Method Nasal Cannula 10/02/23 08:03 O2 Flow Rate 2.5 10/02/23 08:03 FiO2 35 10/01/23 11:51 10/01/23 10/02/23 10/02/23 22:59 06:59 14:59 Intake Total 575 / 915 358 / 358 Output Total 550 / 550 250 / 800 Balance 25 / 365 -250 / 115 358 / 358 Weight last 48 hrs Weight 110.5 kg Weight 112.491 kg Weight 112.5 kg Weight 113 kg Weight 99.79 kg Physical Exam Narrative: Signs of fluid overload improving Currently on 3 L Awake and alert Able to answer my questions She is bedbound Abdomen soft S1, S2 Hemodynamically stable Manzanares catheter in place Urinary Catheter Management: Manzanares: Cath Placed During This Visit: yes Reason for Continuing Indwelling Catheter: Accurate Measurement of Urinary Output in Critically Ill Patients Urinary Catheter Date of Insertion: 10/01/23 Urinary Catheter Time of Insertion: 00:00 Data 10/02/23 04:51 10/02/23 04:51 A&P Assessment and plan (1) Polypharmacy: (2) Major depressive disorder, recurrent, in partial remission: (3) Acute exacerbation of CHF (congestive heart failure): (4) UGIB (upper gastrointestinal bleed): (5) Acute on chronic kidney failure: (6) Anemia: (7) Acute encephalopathy: (8) COPD (chronic obstructive pulmonary disease): Qualifiers: COPD type: unspecified COPD Qualified Code(s): J44.9 - Chronic obstructive pulmonary disease, unspecified (9) Acute and chronic respiratory failure with hypoxia: (10) Physical deconditioning: Plan 73-year female who was recently sent from the hospital to a halfway, she is bedbound, has sacral ulcer, 3 L at baseline of oxygen, noncompliant with BiPAP at the halfway, was on dialysis until 3 weeks ago when it was stopped on request of outpatient nephrology when she started making urine and kidney function started improving, she was found to be in fluid overload pulm edema with hypercapnia, she was close to intubation, however improved with BiPAP currently on 3 L We are continuing dialysis for now, considering anemia of chronic disease elevated 1 unit PRBC Can transfer out of ICU once blood pressure stays normal and she does not require Levophed after dialysis Acute on chronic hypoxic hypercarbic failure: Proved on BiPAP Currently patient is back to her baseline of 3 L Bedbound due to significant arthritis with sacral area also Nursing care every 3 hours Offloading dressing Anemia of chronic disease related to renal failure Will give her 1 unit PRBC Will touch this with nephro regarding Epogen Metabolic encephalopathy related to hypercapnia: Improved We can advance her diet to GI soft today Patient seems to get hypotensive after dialysis and required Levophed If remains stable can be transferred to [facility] Patient remains full code Right femoral vein central line removed which was placed on admission by myself, now she has a PICC line Diet advanced to GI soft today, DVT prophylaxis h SCDs History of A-fib not a candidate for anticoagulation due to history of GI bleed Orthostatic hypotension she is on pyridostigmine.. I do not have any source of infection I have kept on ceftriaxone empirical coverage Attestations Medical Necessity Statement*: Possible discharge in next 24 to 48 hours Diagnoses Polypharmacy Z79.899 Major depressive disorder, recurrent, in partial remission F33.41 Acute exacerbation of CHF (congestive heart failure) I50.9 UGIB (upper gastrointestinal bleed) K92.2 Acute on chronic kidney failure N17.9; N18.9 Anemia D64.9 Acute encephalopathy G93.40 Chronic obstructive pulmonary disease, unspecified COPD type J44.9 COPD type: unspecified COPD Acute and chronic respiratory failure with hypoxia J96.21 Physical deconditioning R53.81
[2023-10-02] MEDS: ondansetron 2 mg/ML SDV 2 mL 4 MG IVP (15:16)
[2023-10-02 17:42] LABS: Glucose Point of Care 137 mg/dL (70-110)
[2023-10-02] MEDS: cefTRIAXone 1,000 MG in sodium chloride 0.9% (plus) 50 ML 100 MG IV (17:58)
[2023-10-02] MEDS: omega-3 fatty acids 1,000 mg Capsule 2000 MG PO (21:36)
[2023-10-03] VITALS (235 sets, daily range): BP systolic 51–129; BP diastolic 37–93; PULSE 77–122; RESP 15–44; TEMP 36.3–36.6; O2SAT 54–100
[2023-10-03] MEDS: ondansetron 2 mg/ML SDV 2 mL 4 MG IVP ×2 (01:54→15:47)
[2023-10-03] MEDS: acetaminophen 325 mg Tablet 650 MG PO ×2 (01:54→20:58)
[2023-10-03 05:06] LABS: Basophils # 0.1 10^3/uL (0.0-0.1); Basophils % 0.9 %; Eosinophils # 0.1 10^3/uL (0.0-0.8); Eosinophils % 1.2 %; Hematocrit 26.5 % (36-47); Lymphocytes # 0.6 10^3/uL (0.8-4.8); Lymphocytes % 9.7 %; Mean Corpuscular HGB Conc 30.6 g/dL (30-55); Mean Corpuscular Hemoglobin 30.5 pg (27-33); Mean Corpuscular Volume 99.6 fl (85-98); Mean Platelet Volume 9.2 fL (7.4-10.4); Monocytes # 0.7 10^3/uL (0.2-0.9); Monocytes % 12.3 %; Neutrophils # 4.39 10^3/uL (1.8-7.7); Nucleated Red Blood Cells % 0.3 %; Platelet Count 176 10^3/cmm (157-399); Red Blood Count 2.66 10^6/uL (3.85-5.65); Red Cell Distribution Width 19.9 % (12.1-15.1); White Blood Count 5.85 10^3/uL (3.29-11.43)
[2023-10-03 05:39] LABS: Anion Gap 10.9 (5-19); Blood Urea Nitrogen 36 mg/dL (8-23); Calcium 8.5 mg/dL (8.5-10.5); Carbon Dioxide 31 mmol/L (22-29); Chloride 99 mmol/L (98-107); Glucose 146 mg/dL (65-115); Osmolality Calculated 295 mOsm/kg (285-295); Potassium 3.9 mmol/L (3.5-5.1); Sodium 137 mmol/L (136-145)
[2023-10-03] MEDS: duloxetine 60 mg Capsule PO (05:57)
[2023-10-03] MEDS: pyridostigmine 60 mg Tablet PO (05:57)
[2023-10-03] MEDS: levothyroxine 150 mcg Tablet PO (05:58)
[2023-10-03 07:33] LABS: Glucose Point of Care 128 mg/dL (70-110)
--- NOTE | 2023-10-03 07:37 | P.PN_ITS ---
Subjective 2 Subjective: seen at bedside today Patient is currently on 3 L tolerating PO well No overnight events She is off Levophed x 48hrs tolerated HD yday well. Patient is from alf which should be able to discharge her in next 24 to 48 hours Will touch this with nephro to see if they would recommend continuation of dialysis because it was stopped 3 weeks ago No fever Hypercapnia proved with use of BiPAP PICC Medications: Reviewed: Yes Vitals/I&O/Wt Last Vital Signs Temp 97.4 F L 10/03/23 04:00 Pulse 88 10/03/23 07:00 Resp 28 H 10/03/23 07:00 BP 83/54 10/03/23 07:00 Pulse Ox 95 10/03/23 07:00 O2 Del Method Nasal Cannula 10/03/23 00:38 O2 Flow Rate 2.5 10/03/23 00:38 FiO2 35 10/01/23 11:51 10/02/23 10/03/23 10/03/23 22:59 06:59 14:59 Intake Total 840 / 1298 Output Total 2183 / 2183 100 / 2283 Balance -1343 / -885 -100 / -985 Weight last 48 hrs Weight 234 lb Weight 235 lb 14.314 oz Weight 243 lb 9.773 oz Physical Exam 2 Narrative: Signs of fluid overload improving Currently on 3 L Awake and alert Able to answer my questions She is bedbound Abdomen soft,non tender, NABS S1, S2, afib distant lung sounds, no wheezing, crackles, rhonchi Hemodynamically stable Manzanares catheter in place Urinary Catheter Management: Manzanares: Cath Placed During This Visit: yes Reason for Continuing Indwelling Catheter: Accurate Measurement of Urinary Output in Critically Ill Patients Urinary Catheter Date of Insertion: 10/01/23 Urinary Catheter Time of Insertion: 00:00 Data 10/03/23 04:55 10/03/23 04:55 A&P Assessment and plan (1) Polypharmacy: (2) Major depressive disorder, recurrent, in partial remission: (3) Acute exacerbation of CHF (congestive heart failure): (4) UGIB (upper gastrointestinal bleed): (5) Acute on chronic kidney failure: (6) Anemia: (7) Acute encephalopathy: (8) COPD (chronic obstructive pulmonary disease): Qualifiers: COPD type: unspecified COPD Qualified Code(s): J44.9 - Chronic obstructive pulmonary disease, unspecified (9) Acute and chronic respiratory failure with hypoxia: (10) Physical deconditioning: Plan 73-year female who was recently sent from the hospital to a alf, she is bedbound, has sacral ulcer, 3 L at baseline of oxygen, noncompliant with BiPAP at the alf, was on dialysis until 3 weeks ago when it was stopped on request of outpatient nephrology when she started making urine and kidney function started improving, she was found to be in fluid overload pulm edema with hypercapnia, she was close to intubation, however improved with BiPAP currently on 3 L We are continuing dialysis for now, considering anemia of chronic disease elevated 1 unit PRBC will transfer to [facility] Acute on chronic hypoxic hypercarbic failure: no longer needing BIPAP Currently patient is back to her baseline of 3 L Bedbound due to significant arthritis with sacral area also Nursing care every 3 hours Offloading dressing Anemia of chronic disease related to renal failure s/p 1u pRBC Hgb is 8.1. will monitor Will touch this with nephro regarding Epogen Metabolic encephalopathy related to hypercapnia: Improved advanced diet today Patient seems to get hypotensive after dialysis and required Levophed transfered to [facility] due to BP and afib Patient remains full code Right femoral vein central line removed which was placed on admission by myself, now she has a PICC line Diet: GI soft today, DVT prophylaxis h SCDs History of A-fib not a candidate for anticoagulation due to history of GI bleed Orthostatic hypotension she is on pyridostigmine.. I do not have any source of infection I have kept on ceftriaxone empirical coverage Attestations 2 Medical Necessity Statement*: torsten require 2 hospital stays for ICU management Coding Level of Care Code 85763 Diagnoses Polypharmacy Z79.899 Major depressive disorder, recurrent, in partial remission F33.41 Acute exacerbation of CHF (congestive heart failure) I50.9 UGIB (upper gastrointestinal bleed) K92.2 Acute on chronic kidney failure N17.9; N18.9 Anemia D64.9 Acute encephalopathy G93.40 Chronic obstructive pulmonary disease, unspecified COPD type J44.9 COPD type: unspecified COPD Acute and chronic respiratory failure with hypoxia J96.21 Physical deconditioning R53.81
--- NOTE | 2023-10-03 08:31 | P.PN_ITS ---
Subjective 2 Subjective: No new complaints Medications: Reviewed: Yes Vitals/I&O/Wt Last Vital Signs Temp 97.5 F L 10/03/23 08:10 Pulse 100 10/03/23 08:10 Resp 28 H 10/03/23 08:10 BP 100/67 10/03/23 08:10 Pulse Ox 90 10/03/23 08:10 O2 Del Method Nasal Cannula 10/03/23 07:53 O2 Flow Rate 2.5 10/03/23 07:53 FiO2 35 10/01/23 11:51 10/02/23 10/03/23 10/03/23 22:59 06:59 14:59 Intake Total 840 / 1298 240 / 240 Output Total 2183 / 2183 100 / 2283 Balance -1343 / -885 -100 / -985 240 / 240 Weight last 48 hrs Weight 106.141 kg Weight 107 kg Weight 110.5 kg Physical Exam 2 Narrative: awake , alert in distress Urinary Catheter Management: Manzanares: Cath Placed During This Visit: yes Reason for Continuing Indwelling Catheter: Accurate Measurement of Urinary Output in Critically Ill Patients Urinary Catheter Date of Insertion: 10/01/23 Urinary Catheter Time of Insertion: 00:00 Data 10/03/23 04:55 10/03/23 04:55 A&P Assessment and plan (1) End stage renal disease: Plan 1. End-stage renal disease: Patient stopped dialysis 3 weeks ago due to possible renal recovery, now presents with volume overload. -Status post HD yesterday, next HD tomorrow -She will need to continue dialysis at discharge but can do HD 2 times per week with a low BFR to avoid hypotension postdialysis. -2 g sodium restriction and 1500 mill fluid restriction 2. Hypertension: Restart home meds, monitor 3. Anemia: Hemoglobin low, status post CARY with HD 4. Acute on chronic respiratory failure, secondary to volume overload , Patient evaluated using audiovisual cart. Time spent 40 minutes Attestations 2 Medical Necessity Statement*: Per medicine team Coding Level of Care Code Acute Code for Chg Fwd Diagnoses End stage renal disease N18.6
[2023-10-03] MEDS: pantoprazole DR 40 mg Tablet PO ×2 (08:58→17:22)
[2023-10-03] MEDS: amiodarone 200 mg Tablet PO (08:58)
[2023-10-03] MEDS: metoprolol tartrate 25 mg Tablet PO ×2 (08:58→17:22)
[2023-10-03] MEDS: insulin glargine 100 units/1 mL 5 UNIT SUBCUT (08:58)
[2023-10-03 12:45] LABS: Glucose Point of Care 173 mg/dL (70-110)
[2023-10-03] MEDS: insulin lispro 100 unit/1 mL SUBCUT (12:49)
[2023-10-03] MEDS: HYDROcodone-acetaminophen 5-325 mg Tablet 1 TAB PO (15:47)
[2023-10-03] MEDS: cefTRIAXone 1,000 MG in sodium chloride 0.9% (plus) 50 ML 100 MG IV (17:17)
[2023-10-03 17:22] LABS: Glucose Point of Care 125 mg/dL (70-110)
[2023-10-03] MEDS: omega-3 fatty acids 1,000 mg Capsule 2000 MG PO (20:58)
[2023-10-03 21:08] LABS: Glucose Point of Care 178 mg/dL (70-110)
[2023-10-04] VITALS (64 sets, daily range): BP systolic 86–130; BP diastolic 50–90; PULSE 77–114; RESP 15–46; TEMP 36.2–37; O2SAT 83–100
[2023-10-04] MEDS: HYDROcodone-acetaminophen 5-325 mg Tablet 1 TAB PO (02:24)
[2023-10-04] MEDS: ondansetron 2 mg/ML SDV 2 mL 4 MG IVP ×3 (02:27→20:07)
[2023-10-04 05:25] LABS: Basophils % 0.7 %; Eosinophils # 0.1 10^3/uL (0.0-0.8); Eosinophils % 1.5 %; Hematocrit 24.9 % (36-47); Lymphocytes # 0.4 10^3/uL (0.8-4.8); Lymphocytes % 10.7 %; Mean Corpuscular HGB Conc 29.7 g/dL (30-55); Mean Corpuscular Hemoglobin 29.4 pg (27-33); Mean Corpuscular Volume 98.8 fl (85-98); Mean Platelet Volume 9.6 fL (7.4-10.4); Monocytes # 0.5 10^3/uL (0.2-0.9); Monocytes % 11.7 %; Neutrophils # 3.05 10^3/uL (1.8-7.7); Neutrophils % 74.2 %; Nucleated Red Blood Cells % 0 %; Platelet Count 155 10^3/cmm (157-399); Red Blood Count 2.52 10^6/uL (3.85-5.65); Red Cell Distribution Width 19.4 % (12.1-15.1); White Blood Count 4.11 10^3/uL (3.29-11.43)
--- NOTE | 2023-10-04 05:50 | PC.NURSE ---
Patient rested well overnight. Back pain rated 5-7 treated with [place]. Bipap utilized approximately 5 hours of shift. No significant changes observed.
[2023-10-04 05:53] LABS: Alanine Aminotransferase 18 U/L (0-33); Albumin Level 2.9 g/dL (3.5-5.2); Alkaline Phosphatase 90 U/L (35-105); Aspartate Amino Transferase 17 U/L (0-32); Blood Urea Nitrogen 41 mg/dL (8-23); Calcium 8.6 mg/dL (8.5-10.5); Carbon Dioxide 31 mmol/L (22-29); Chloride 99 mmol/L (98-107); Globulin 2.6 g/dL (1.3-4.6); Glucose 129 mg/dL (65-115); Osmolality Calculated 302 mOsm/kg (285-295); Sodium 140 mmol/L (136-145); Total Bilirubin 0.2 mg/dL (0.15-1.2); Total Protein 5.5 g/dL (6.6-8.7)
[2023-10-04] MEDS: pyridostigmine 60 mg Tablet PO (06:02)
[2023-10-04] MEDS: duloxetine 60 mg Capsule PO (06:02)
[2023-10-04] MEDS: levothyroxine 150 mcg Tablet PO (06:02)
[2023-10-04 07:09] LABS: Glucose Point of Care 118 mg/dL (70-110)
[2023-10-04] MEDS: metoprolol tartrate 25 mg Tablet PO ×2 (08:57→17:29)
[2023-10-04] MEDS: amiodarone 200 mg Tablet PO (08:57)
[2023-10-04] MEDS: insulin glargine 100 units/1 mL 5 UNIT SUBCUT (08:57)
[2023-10-04] MEDS: pantoprazole DR 40 mg Tablet PO ×2 (08:57→17:29)
[2023-10-04] MEDS: heparin, porcine 1,000 unit/mL INJ 10 mL 10000 UNIT INTRACATH (09:50)
[2023-10-04] MEDS: heparin, porcine 1,000 unit/mL INJ 10 mL 1000 UNIT IV (09:50)
--- NOTE | 2023-10-04 10:04 | PC.NURSE ---
up to dialysis room with nurse for dialysis ... covid test sent down to lab for possible discharge to long term
[2023-10-04] MEDS: epoetin alfa 1000 Unit/0.05 mL (ESRD) 20000 UNIT IVP (11:25)
--- NOTE | 2023-10-04 12:28 | P.PN_ITS ---
Subjective 2 Subjective: Patient is doing much better Clinically significantly improved Continue dialysis Awaiting chair time [facility] Vitals/I&O/Wt Last Vital Signs Temp 97.3 F L 10/04/23 09:00 Pulse 96 10/04/23 09:00 Resp 25 H 10/04/23 09:00 BP 111/75 10/04/23 09:00 Pulse Ox 89 L 10/04/23 09:00 O2 Del Method Nasal Cannula 10/04/23 08:09 O2 Flow Rate 3 10/04/23 08:09 FiO2 35 10/04/23 03:04 10/03/23 10/04/23 10/04/23 22:59 06:59 14:59 Intake Total 290 / 770 250 / 250 Output Total 150 / 150 150 / 300 150 / 150 Balance 140 / 620 -150 / 470 100 / 100 Weight last 48 hrs Weight 108.862 kg Weight 106.141 kg Weight 107 kg Physical Exam 2 Narrative: Signs of fluid load improving Currently on 2 to 3 L Blood pressure stable Awake and alert GCS 15 Making urine Pleasant cooperative No BM yet Abdomen soft Sacral ulcer present since admission S1, S2 Urinary Catheter Management: Manzanares: Cath Placed During This Visit: yes Reason for Continuing Indwelling Catheter: Accurate Measurement of Urinary Output in Critically Ill Patients Urinary Catheter Date of Insertion: 10/01/23 Urinary Catheter Time of Insertion: 00:00 Data 10/04/23 05:10 10/04/23 05:10 A&P Assessment and plan (1) Polypharmacy: (2) Anxiety and depression: (3) Chronic post-traumatic stress disorder (PTSD): (4) Congestive heart failure (CHF): (5) Heart failure with preserved ejection fraction: (6) Intermittent atrial fibrillation: (7) UGIB (upper gastrointestinal bleed): (8) Acute kidney injury superimposed on chronic kidney disease: (9) Anemia: (10) Osteoarthritis of knees, bilateral: (11) COPD (chronic obstructive pulmonary disease): Qualifiers: COPD type: unspecified COPD Qualified Code(s): J44.9 - Chronic obstructive pulmonary disease, unspecified (12) Acute and chronic respiratory failure with hypoxia: (13) Physical deconditioning: Plan Patient is ready to be discharged when she gets a chair time Continuation of dialysis is indicated at this point Anasarca improving Currently doing well on 3 L Once she gets up chair time I should be able to discharge her from the hospital for now I will transfer out of ICU to [facility] She has chronic anemia due to renal disease probably will get blood transfusion during dialysis Full code Hemodynamically stable Sacral ulcer present since admission Offloading dressing present Attestations 2 Medical Necessity Statement*: Transfer out of ICU Diagnoses Polypharmacy Z79.899 Anxiety and depression F41.9; F32.9 Chronic post-traumatic stress disorder (PTSD) F43.12 Congestive heart failure (CHF) I50.9 Acute on chronic heart failure with preserved ejection fraction I50.30 Intermittent atrial fibrillation I48.0 UGIB (upper gastrointestinal bleed) K92.2 Acute kidney injury superimposed on chronic kidney disease N17.9; N18.9 Anemia D64.9 Osteoarthritis of knees, bilateral M17.0 Chronic obstructive pulmonary disease, unspecified COPD type J44.9 COPD type: unspecified COPD Acute and chronic respiratory failure with hypoxia J96.21 Physical deconditioning R53.81
[2023-10-04 13:49] LABS: Adenovirus Not Detected (NOT DETECT); Chlamydia Pneumoniae Not Detected (NOT DETECT); Coronavirus 229E,HKU1,NL63,OC4 Not Detected (NOT DETECT); Human Metapneumovirus Not Detected (NOT DETECT); Human Rhinovirus/Enterovirus Not Detected (NOT DETECT); Influenza A Not Detected (NOT DETECT); Influenza A H1 Not Detected (NOT DETECT); Influenza A H1-2009 Not Detected (NOT DETECT); Influenza A H3 Not Detected (NOT DETECT); Influenza B Not Detected (NOT DETECT); Mycoplasma Pneumoniae Not Detected (NOT DETECT); Parainfluenza Virus Type 1 Not Detected (NOT DETECT); Parainfluenza Virus Type 2 Not Detected (NOT DETECT); Parainfluenza Virus Type 3 Not Detected (NOT DETECT); Parainfluenza Virus Type 4 Not Detected (NOT DETECT); Respiratory Syncytial Virus A Not Detected (NOT DETECT); Respiratory Syncytial Virus B Not Detected (NOT DETECT); SARS-COV-2 Not Detected (NOT DETECT)
[2023-10-04 13:50] LABS: Glucose Point of Care 120 mg/dL (70-110)
--- NOTE | 2023-10-04 14:14 | PC.NURSE ---
back from dialysis and vital sign done at this time pending blood transfusion for type and cross
--- NOTE | 2023-10-04 15:01 | P.PN_ITS ---
Subjective 2 Subjective: getting hd Medications: Reviewed: Yes Vitals/I&O/Wt Last Vital Signs Temp 97.3 F L 10/04/23 09:00 Pulse 102 H 10/04/23 14:00 Resp 25 H 10/04/23 14:00 BP 107/71 10/04/23 14:00 Pulse Ox 89 L 10/04/23 14:00 O2 Del Method Nasal Cannula 10/04/23 08:09 O2 Flow Rate 3 10/04/23 08:09 FiO2 35 10/04/23 03:04 10/04/23 10/04/23 10/04/23 06:59 14:59 22:59 Intake Total 250 / 250 Output Total 150 / 300 150 / 150 Balance -150 / 470 100 / 100 Weight last 48 hrs Weight 108.862 kg Weight 106.141 kg Weight 107 kg Physical Exam 2 Narrative: awake , alert in distress Urinary Catheter Management: Manzanares: Cath Placed During This Visit: yes Reason for Continuing Indwelling Catheter: Accurate Measurement of Urinary Output in Critically Ill Patients Urinary Catheter Date of Insertion: 10/01/23 Urinary Catheter Time of Insertion: 00:00 Data 10/04/23 05:10 10/04/23 05:10 A&P Assessment and plan (1) End stage renal disease: Plan 1. End-stage renal disease: Patient stopped dialysis 3 weeks ago due to possible renal recovery, now presents with volume overload. -Status post HD yesterday, next HD today -She will need to continue dialysis at discharge but can do HD 2 times per week with a low BFR to avoid hypotension postdialysis. -2 g sodium restriction and 1500 mill fluid restriction 2. Hypertension: Restart home meds, monitor 3. Anemia: Hemoglobin low, status post CARY with HD, plan for transfusion 4. Acute on chronic respiratory failure, secondary to volume overload , Patient evaluated using audiovisual cart. Time spent 20 minutes Attestations 2 Medical Necessity Statement*: per nano Coding Level of Care Code Acute Code for Chg Fwd Diagnoses End stage renal disease N18.6
--- NOTE | 2023-10-04 15:39 | PC.NURSE ---
verified consent to get blood and unit of prbc started at this time monitor vs
[2023-10-04 17:19] LABS: Glucose Point of Care 172 mg/dL (70-110)
[2023-10-04] MEDS: insulin lispro 100 unit/1 mL SUBCUT (17:29)
--- NOTE | 2023-10-04 17:44 | NUR.SHIFT ---
has had dialysis today and back to icu pt refused to feed herself for lunch or pull blankets up or down .. will not let staff position up in bed here at supper explained status to him and aware position her up in bed cut up meat and pt again refused to attempt to feed self at beside and now encourage her but he is feeding her himself explained she would need to be up in chair and pt refused at this time .
[2023-10-04] MEDS: acetaminophen 325 mg Tablet 650 MG PO (19:37)
--- NOTE | 2023-10-04 19:43 | PC.NURSE ---
Patient was able to side on side of the bed with 2 person assist. 2 person assisted patient ambulation to chair. Patient tolerated well. notified.
[2023-10-04] MEDS: omega-3 fatty acids 1,000 mg Capsule 2000 MG PO (23:19)
[2023-10-05] VITALS (51 sets, daily range): BP systolic 96–132; BP diastolic 56–91; PULSE 73–103; RESP 14–28; TEMP 36.5–37.1; O2SAT 78–100
[2023-10-05 04:20] LABS: Basophils % 0.7 %; Eosinophils % 0.9 %; Hematocrit 29.6 % (36-47); Lymphocytes # 0.6 10^3/uL (0.8-4.8); Lymphocytes % 12.6 %; Mean Corpuscular HGB Conc 31.1 g/dL (30-55); Mean Corpuscular Hemoglobin 29.9 pg (27-33); Mean Corpuscular Volume 96.1 fl (85-98); Mean Platelet Volume 9.2 fL (7.4-10.4); Monocytes # 0.5 10^3/uL (0.2-0.9); Monocytes % 11.5 %; Neutrophils # 3.21 10^3/uL (1.8-7.7); Neutrophils % 72.5 %; Nucleated Red Blood Cells % 0 %; Platelet Count 139 10^3/cmm (157-399); Red Blood Count 3.08 10^6/uL (3.85-5.65); Red Cell Distribution Width 18.7 % (12.1-15.1); White Blood Count 4.43 10^3/uL (3.29-11.43)
[2023-10-05 04:50] LABS: Anion Gap 11.8 (5-19); Blood Urea Nitrogen 27 mg/dL (8-23); Calcium 8.6 mg/dL (8.5-10.5); Carbon Dioxide 30 mmol/L (22-29); Chloride 98 mmol/L (98-107); Glucose 116 mg/dL (65-115); Osmolality Calculated 288 mOsm/kg (285-295); Potassium 3.8 mmol/L (3.5-5.1); Sodium 136 mmol/L (136-145)
[2023-10-05] MEDS: pyridostigmine 60 mg Tablet PO (06:02)
[2023-10-05] MEDS: duloxetine 60 mg Capsule PO (06:02)
[2023-10-05] MEDS: levothyroxine 150 mcg Tablet PO (06:02)
--- NOTE | 2023-10-05 06:29 | PC.NURSE ---
Patient tolerated chair for 3hrs at start of shift. Rested comfortably on Bipap remainder of the evening. Visibly tired from ambulation. 150 urine output for shift. Frequent turns provided. Sacral/right buttocks pressure injury dressings replaced.
[2023-10-05 06:55] LABS: Glucose Point of Care 110 mg/dL (70-110)
[2023-10-05] MEDS: ondansetron 2 mg/ML SDV 2 mL 4 MG IVP (07:20)
[2023-10-05] MEDS: acetaminophen 325 mg Tablet 650 MG PO ×3 (07:20→20:19)
[2023-10-05] MEDS: amiodarone 200 mg Tablet PO (09:15)
[2023-10-05] MEDS: metoprolol tartrate 25 mg Tablet PO ×2 (09:15→17:45)
[2023-10-05] MEDS: pantoprazole DR 40 mg Tablet PO ×2 (09:16→17:45)
[2023-10-05] MEDS: insulin glargine 100 units/1 mL 5 UNIT SUBCUT (09:16)
--- NOTE | 2023-10-05 12:32 | P.PN_ITS ---
Subjective 2 Subjective: no new c/o Medications: Reviewed: Yes Vitals/I&O/Wt Last Vital Signs Temp 98.2 F 10/05/23 00:15 Pulse 99 10/05/23 08:07 Resp 20 H 10/05/23 08:07 BP 129/81 10/05/23 08:07 Pulse Ox 96 10/05/23 08:07 O2 Del Method Nasal Cannula 10/05/23 08:07 O2 Flow Rate 3 10/05/23 08:07 FiO2 35 10/05/23 03:25 10/04/23 10/05/23 10/05/23 22:59 06:59 14:59 Intake Total 450 / 1550 236 / 236 Output Total 100 / 2934 150 / 3084 Balance 350 / -1384 -150 / -1534 236 / 236 Weight last 48 hrs Weight 106.594 kg Weight 110 kg Weight 108.862 kg Physical Exam 2 Narrative: awake , alert in distress Urinary Catheter Management: Manzanares: Cath Placed During This Visit: yes Reason for Continuing Indwelling Catheter: Accurate Measurement of Urinary Output in Critically Ill Patients Urinary Catheter Date of Insertion: 10/01/23 Urinary Catheter Time of Insertion: 00:00 Data 10/05/23 03:52 10/05/23 03:52 A&P Assessment and plan (1) End stage renal disease: Plan 1. End-stage renal disease: Patient stopped dialysis 3 weeks ago due to possible renal recovery, now presents with volume overload. -Status post HD yesterday, -She will need to continue dialysis at discharge but can do HD 2 times per week with a low BFR to avoid hypotension postdialysis. -2 g sodium restriction and 1500 mill fluid restriction 2. Hypertension: Restart home meds, monitor 3. Anemia: Hemoglobin low, status post CARY with HD, plan for transfusion 4. Acute on chronic respiratory failure, secondary to volume overload , Patient evaluated using audiovisual cart. Time spent 20 minutes Attestations 2 Medical Necessity Statement*: per nano Coding Level of Care Code Acute Code for Chg Fwd Diagnoses End stage renal disease N18.6
[2023-10-05 12:44] LABS: Glucose Point of Care 126 mg/dL (70-110)
[2023-10-05] MEDS: ipratropium-albuterol 3 mL Neb INHALATION (15:25)
[2023-10-05 17:36] LABS: Glucose Point of Care 166 mg/dL (70-110)
--- NOTE | 2023-10-05 17:42 | P.PN_ITS ---
Subjective 2 Subjective: Awaiting placement Vitals/I&O/Wt Last Vital Signs Temp 98.2 F 10/05/23 00:15 Pulse 95 10/05/23 15:26 Resp 16 10/05/23 15:25 BP 121/79 10/05/23 13:18 Pulse Ox 100 10/05/23 15:26 O2 Del Method BiPAP 10/05/23 15:25 O2 Flow Rate 3 10/05/23 08:07 FiO2 35 10/05/23 15:26 10/05/23 10/05/23 10/05/23 06:59 14:59 22:59 Intake Total 436 / 436 Output Total 150 / 3084 Balance -150 / -1534 436 / 436 Weight last 48 hrs Weight 106.594 kg Weight 110 kg Weight 108.862 kg Physical Exam 2 Narrative: Nonfocal neuroexam GC 50 Currently on 2 L Sitting in a recliner 80 breakfast Urinary Catheter Management: Manzanares: Cath Placed During This Visit: yes Reason for Continuing Indwelling Catheter: Accurate Measurement of Urinary Output in Critically Ill Patients Urinary Catheter Date of Insertion: 10/01/23 Urinary Catheter Time of Insertion: 00:00 Data 10/05/23 03:52 10/05/23 03:52 A&P Assessment and plan (1) Hypertensive urgency: (2) UGIB (upper gastrointestinal bleed): (3) Acute on chronic kidney failure: Plan Awaiting placement Constipated Will try lactulose if no bowel movement by tomorrow Transfer out of ICU to [facility] Attestations 2 Medical Necessity Statement*: Awaiting placement Coding Level of Care Code Acute Code for [facility] Diagnoses Hypertensive urgency I16.0 UGIB (upper gastrointestinal bleed) K92.2 Acute on chronic kidney failure N17.9; N18.9
--- NOTE | 2023-10-05 17:43 | PC.NURSE ---
siva called to med surg
[2023-10-05] MEDS: insulin lispro 100 unit/1 mL SUBCUT (17:45)
[2023-10-05] MEDS: omega-3 fatty acids 1,000 mg Capsule 2000 MG PO (20:19)
[2023-10-05 20:46] LABS: Glucose Point of Care 204 mg/dL (70-110)
[2023-10-06] VITALS (10 sets, daily range): BP systolic 98–137; BP diastolic 56–85; PULSE 57–103; RESP 15–20; TEMP 36.6–37.1; O2SAT 90–100
[2023-10-06] MEDS: pyridostigmine 60 mg Tablet PO (05:10)
[2023-10-06] MEDS: levothyroxine 150 mcg Tablet PO (05:10)
[2023-10-06] MEDS: duloxetine 60 mg Capsule PO (05:10)
[2023-10-06] MEDS: acetaminophen 325 mg Tablet 650 MG PO (05:15)
[2023-10-06 07:04] LABS: Glucose Point of Care 123 mg/dL (70-110)
[2023-10-06] MEDS: metoprolol tartrate 25 mg Tablet PO ×2 (08:15→17:34)
[2023-10-06] MEDS: pantoprazole DR 40 mg Tablet PO ×2 (08:15→17:34)
[2023-10-06] MEDS: amiodarone 200 mg Tablet PO (08:15)
--- NOTE | 2023-10-06 09:08 | P.PN_ITS ---
Subjective 2 Subjective: no nw c/o Medications: Reviewed: Yes Vitals/I&O/Wt Last Vital Signs Temp 98.4 F 10/07/23 10:14 Pulse 85 10/07/23 10:14 Resp 20 H 10/07/23 10:14 BP 124/75 10/07/23 10:14 Pulse Ox 99 10/07/23 09:15 O2 Del Method BiPAP 10/07/23 09:15 O2 Flow Rate 3 10/07/23 08:00 FiO2 35 10/07/23 07:30 10/06/23 10/07/23 10/07/23 22:59 06:59 14:59 Intake Total 201 / 201 Output Total 900 / 900 Balance -900 / -420 201 / 201 Weight last 48 hrs Weight 111.765 kg Weight 112.309 kg Physical Exam 2 Narrative: awake , alert in distress Urinary Catheter Management: Manzanares: Cath Placed During This Visit: yes Reason for Continuing Indwelling Catheter: Accurate Measurement of Urinary Output in Critically Ill Patients Urinary Catheter Date of Insertion: 10/01/23 Urinary Catheter Time of Insertion: 00:00 Data 10/05/23 03:52 10/07/23 02:47 A&P Assessment and plan (1) End stage renal disease: Plan 1. End-stage renal disease: Patient stopped dialysis 3 weeks ago due to possible renal recovery, now presents with volume overload. -HD tomorrow -She will need to continue dialysis at discharge but can do HD 2 times per week with a low BFR to avoid hypotension postdialysis. -2 g sodium restriction and 1500 mill fluid restriction 2. Hypertension: Restart home meds, monitor 3. Anemia: Hemoglobin low, status post CARY with HD, 4. Acute on chronic respiratory failure, secondary to volume overload , Patient evaluated using audiovisual cart. Time spent 20 minutes Attestations 2 Medical Necessity Statement*: per nano Coding Level of Care Code Acute Code for Chg Fwd Diagnoses End stage renal disease N18.6
[2023-10-06] MEDS: insulin glargine 100 units/1 mL 5 UNIT SUBCUT (09:29)
--- NOTE | 2023-10-06 09:42 | P.PN_ITS ---
Subjective 2 Subjective: Patient is constipated No bowel movement will add lactulose No overnight events Complaining of sacral pain however stating that it is slightly better Vitals/I&O/Wt Last Vital Signs Temp 98.4 F 10/06/23 07:21 Pulse 99 10/06/23 07:52 Resp 20 H 10/06/23 07:52 BP 137/81 10/06/23 07:21 Pulse Ox 96 10/06/23 07:52 O2 Del Method Nasal Cannula 10/06/23 07:52 O2 Flow Rate 3 10/06/23 07:52 FiO2 35 10/06/23 04:45 10/05/23 10/06/23 10/06/23 22:59 06:59 14:59 Intake Total 600 / 1036 240 / 240 Output Total 400 / 400 Balance 600 / 1036 -400 / 636 240 / 240 Weight last 48 hrs Weight 112.309 kg Weight 106.594 kg Weight 110 kg Physical Exam 2 Narrative: Currently on 2 L Pleasant GCS 15 Signs of fluid load improving Pleasant nonfocal neuroexam No anxiety Urinary Catheter Management: Manzanares: Cath Placed During This Visit: yes Reason for Continuing Indwelling Catheter: Accurate Measurement of Urinary Output in Critically Ill Patients Urinary Catheter Date of Insertion: 10/01/23 Urinary Catheter Time of Insertion: 00:00 Data 10/05/23 03:52 10/05/23 03:52 A&P Assessment and plan (1) Acute exacerbation of CHF (congestive heart failure): (2) UGIB (upper gastrointestinal bleed): (3) Acute on chronic kidney failure: (4) Acute and chronic respiratory failure with hypoxia: Plan Constipation: Add lactulose Awaiting placement likely on Sunday Off BiPAP this morning Saturating well on 2 L No need of antibiotics Awaiting chair time Attestations 2 Medical Necessity Statement*: Discharge likely Sunday Diagnoses Acute exacerbation of CHF (congestive heart failure) I50.9 UGIB (upper gastrointestinal bleed) K92.2 Acute on chronic kidney failure N17.9; N18.9 Acute and chronic respiratory failure with hypoxia J96.21
[2023-10-06] MEDS: lactulose oral liq 20 gm/30 mL UDC 10 GM PO (10:43)
[2023-10-06 11:29] LABS: Glucose Point of Care 174 mg/dL (70-110)
[2023-10-06] MEDS: insulin lispro 100 unit/1 mL SUBCUT ×2 (12:18→17:34)
[2023-10-06] MEDS: HYDROcodone-acetaminophen 5-325 mg Tablet 1 TAB PO ×2 (12:19→19:46)
[2023-10-06] MEDS: FUROsemide 10 mg/mL SDV 2mL 20 MG IVP (12:19)
[2023-10-06 13:54] LABS: Anion Gap 14.8 (5-19); Blood Urea Nitrogen 35 mg/dL (8-23); Calcium 8.6 mg/dL (8.5-10.5); Carbon Dioxide 27 mmol/L (22-29); Chloride 97 mmol/L (98-107); Glucose 127 mg/dL (65-115); Osmolality Calculated 290 mOsm/kg (285-295); Potassium 3.8 mmol/L (3.5-5.1); Sodium 135 mmol/L (136-145)
[2023-10-06 17:15] LABS: Glucose Point of Care 141 mg/dL (70-110)
[2023-10-06] MEDS: omega-3 fatty acids 1,000 mg Capsule 2000 MG PO (19:46)
[2023-10-06 21:33] LABS: Glucose Point of Care 166 mg/dL (70-110)
[2023-10-07] VITALS (9 sets, daily range): BP systolic 112–134; BP diastolic 56–77; PULSE 73–102; RESP 18–21; TEMP 36.4–37.1; O2SAT 92–100
[2023-10-07 03:39] LABS: Anion Gap 13.9 (5-19); Blood Urea Nitrogen 38 mg/dL (8-23); Calcium 8.5 mg/dL (8.5-10.5); Carbon Dioxide 27 mmol/L (22-29); Chloride 97 mmol/L (98-107); Glucose 116 mg/dL (65-115); Osmolality Calculated 288 mOsm/kg (285-295); Potassium 3.9 mmol/L (3.5-5.1); Sodium 134 mmol/L (136-145)
[2023-10-07] MEDS: duloxetine 60 mg Capsule PO (06:16)
[2023-10-07] MEDS: pyridostigmine 60 mg Tablet PO (06:16)
[2023-10-07] MEDS: levothyroxine 150 mcg Tablet PO (06:16)
[2023-10-07] MEDS: HYDROcodone-acetaminophen 5-325 mg Tablet 1 TAB PO ×2 (06:16→14:29)
[2023-10-07 06:22] LABS: Glucose Point of Care 124 mg/dL (70-110)
--- NOTE | 2023-10-07 06:36 | PC.NURSE ---
Patient's oxygen turned up from 3 liters to 4 liters due to oxygen saturation of 88 percent. RT notified.
[2023-10-07] MEDS: ipratropium-albuterol 3 mL Neb INHALATION (07:29)
[2023-10-07] MEDS: amiodarone 200 mg Tablet PO (08:44)
[2023-10-07] MEDS: metoprolol tartrate 25 mg Tablet PO ×2 (08:44→17:55)
[2023-10-07] MEDS: insulin glargine 100 units/1 mL 5 UNIT SUBCUT (08:44)
[2023-10-07] MEDS: pantoprazole DR 40 mg Tablet PO ×2 (08:44→17:55)
[2023-10-07] MEDS: acetaminophen 325 mg Tablet 650 MG PO ×2 (08:44→13:55)
--- NOTE | 2023-10-07 09:18 | P.PN_ITS ---
Subjective 2 Subjective: Awaiting chair time Patient is able to eat breakfast She will sit in recliner today I took off her BiPAP put her on 3 L nasal cannula Sacral ulcer stage II No acute worsening no need of debridement She has been sitting in the recliner getting out of bed every day since Sunday Vitals/I&O/Wt Last Vital Signs Temp 97.5 F L 10/07/23 09:15 Pulse 89 10/07/23 09:15 Resp 18 10/07/23 09:15 BP 118/64 10/07/23 09:15 Pulse Ox 99 10/07/23 09:15 O2 Del Method BiPAP 10/07/23 09:15 O2 Flow Rate 3 10/06/23 07:52 FiO2 35 10/07/23 07:30 10/06/23 10/07/23 10/07/23 22:59 06:59 14:59 Output Total 900 / 900 Balance -900 / -420 Weight last 48 hrs Weight 111.765 kg Weight 112.309 kg Physical Exam 2 Narrative: Pleasant cooperative On 3 L Able to eat breakfast on her own Encouraged her to sit in a recliner today as well Abdomen soft No acute sign of anasarca Signs of fluid load improving Pleasant cooperative Urinary Catheter Management: Manzanares: Cath Placed During This Visit: yes Reason for Continuing Indwelling Catheter: Accurate Measurement of Urinary Output in Critically Ill Patients Urinary Catheter Date of Insertion: 10/01/23 Urinary Catheter Time of Insertion: 00:00 Data 10/05/23 03:52 10/07/23 02:47 A&P Assessment and plan (1) Anxiety and depression: (2) Acute on chronic kidney failure: (3) Anemia: (4) Seronegative rheumatoid arthritis of both hands: (5) Physical deconditioning: (6) Acute and chronic respiratory failure with hypoxia: Plan Awaiting chair time I should be able to discharge her by Sunday once we get a chair time Continue dialysis as per the schedule Doing much better Able to sitting in recliner for about 4 hours Stage II sacral ulcer no acute indication for debridement Full code Consistent carb diet BiPAP at night and oxygen 3 L in the morning Attestations 2 Medical Necessity Statement*: Likely discharge tomorrow Diagnoses Anxiety and depression F41.9; F32.9 Acute on chronic kidney failure N17.9; N18.9 Anemia D64.9 Seronegative rheumatoid arthritis of both hands M06.041; M06.042 Physical deconditioning R53.81 Acute and chronic respiratory failure with hypoxia J96.21
[2023-10-07] MEDS: heparin, porcine 1,000 unit/mL INJ 10 mL 10000 UNIT INTRACATH (09:56)
[2023-10-07] MEDS: heparin, porcine 1,000 unit/mL INJ 10 mL 1000 UNIT IV (09:56)
[2023-10-07] MEDS: albumin 12.5 GM/50 ML VIAL IV ×2 (10:50→11:21)
[2023-10-07 11:23] LABS: Glucose Point of Care 144 mg/dL (70-110)
[2023-10-07] MEDS: ondansetron 2 mg/ML SDV 2 mL 4 MG IVP (14:29)
[2023-10-07 17:07] LABS: Glucose Point of Care 244 mg/dL (70-110)
[2023-10-07] MEDS: insulin lispro 100 unit/1 mL SUBCUT (18:00)
--- NOTE | 2023-10-07 19:26 | PC.HD ---
Pt hypotensive in spite of reduced machine temp, albumin infusion, and UF off. Dr Le instructed to terminate tx early (20 minutes) d/t fluid removal being the focus of tx and not tolerated by pt.
[2023-10-07 21:32] LABS: Glucose Point of Care 142 mg/dL (70-110)
[2023-10-07] MEDS: omega-3 fatty acids 1,000 mg Capsule 2000 MG PO (22:00)
[2023-10-08] VITALS (11 sets, daily range): BP systolic 116–149; BP diastolic 63–84; PULSE 81–111; RESP 16–24; TEMP 36.4–36.9; O2SAT 96–100
[2023-10-08 04:30] LABS: Basophils % 0.7 %; Eosinophils # 0.1 10^3/uL (0.0-0.8); Eosinophils % 2.4 %; Hematocrit 28.8 % (36-47); Lymphocytes # 0.7 10^3/uL (0.8-4.8); Lymphocytes % 15.3 %; Mean Corpuscular HGB Conc 30.2 g/dL (30-55); Mean Corpuscular Hemoglobin 29.6 pg (27-33); Mean Platelet Volume 9.4 fL (7.4-10.4); Monocytes # 0.6 10^3/uL (0.2-0.9); Monocytes % 13.1 %; Neutrophils % 67.8 %; Nucleated Red Blood Cells % 0 %; Platelet Count 117 10^3/cmm (157-399); Red Blood Count 2.94 10^6/uL (3.85-5.65); Red Cell Distribution Width 18.4 % (12.1-15.1); White Blood Count 4.57 10^3/uL (3.29-11.43)
[2023-10-08 04:48] LABS: Anion Gap 8.3 (5-19); Blood Urea Nitrogen 28 mg/dL (8-23); Calcium 8.7 mg/dL (8.5-10.5); Carbon Dioxide 31 mmol/L (22-29); Chloride 98 mmol/L (98-107); Creatinine Clr Calc Pharmacy 0; Glucose 96 mg/dL (65-115); Osmolality Calculated 281 mOsm/kg (285-295); Potassium 4.3 mmol/L (3.5-5.1); Sodium 133 mmol/L (136-145)
[2023-10-08] MEDS: pyridostigmine 60 mg Tablet PO (05:53)
[2023-10-08] MEDS: levothyroxine 150 mcg Tablet PO (05:53)
[2023-10-08] MEDS: duloxetine 60 mg Capsule PO (05:53)
[2023-10-08 06:44] LABS: Glucose Point of Care 134 mg/dL (70-110)
[2023-10-08] MEDS: ipratropium-albuterol 3 mL Neb INHALATION ×2 (08:31→19:54)
[2023-10-08] MEDS: pantoprazole DR 40 mg Tablet PO ×2 (09:18→17:36)
[2023-10-08] MEDS: amiodarone 200 mg Tablet PO (09:18)
[2023-10-08] MEDS: insulin glargine 100 units/1 mL 5 UNIT SUBCUT (09:18)
[2023-10-08] MEDS: metoprolol tartrate 25 mg Tablet PO ×2 (09:18→17:36)
[2023-10-08] MEDS: HYDROcodone-acetaminophen 5-325 mg Tablet 1 TAB PO (11:02)
[2023-10-08] MEDS: ondansetron 2 mg/ML SDV 2 mL 4 MG IVP (11:03)
[2023-10-08] MEDS: FUROsemide 10 mg/mL SDV 10mL 60 MG IVP (11:03)
[2023-10-08 11:18] LABS: Glucose Point of Care 169 mg/dL (70-110)
--- NOTE | 2023-10-08 11:23 | PC.SOCIAL ---
IMM Update pg 2 of IMM updated and reviewed w/ patient. Copy provided and copy dated, initialed and placed in chart.
--- NOTE | 2023-10-08 11:40 | P.PN_ITS ---
Subjective 2 Subjective: Patient is awaiting for chair time and prior authorization approval otherwise medically cleared to be discharged Vitals/I&O/Wt Last Vital Signs Temp 97.9 F 10/08/23 07:22 Pulse 111 H 10/08/23 08:34 Resp 16 10/08/23 08:34 BP 125/84 10/08/23 07:22 Pulse Ox 96 10/08/23 08:34 O2 Del Method Nasal Cannula 10/08/23 08:34 O2 Flow Rate 4 10/08/23 08:34 FiO2 35 10/08/23 00:05 10/07/23 10/08/23 10/08/23 22:59 06:59 14:59 Intake Total 840 / 1281 480 / 480 Output Total 1582 / 1582 350 / 1932 Balance -742 / -301 -350 / -651 480 / 480 Weight last 48 hrs Weight 113.398 kg Weight 0 g Weight 111.765 kg Physical Exam 2 Narrative: Sign of fluid load improving Currently on 2 L Pleasant cooperative Able to eat breakfast Sacral ulcer stage II Abdomen soft Patient seems to be depressed with lack of motivation to get out of bed to sit in a recliner Urinary Catheter Management: Manzanares: Cath Placed During This Visit: yes Reason for Continuing Indwelling Catheter: Other Urinary Catheter Date of Insertion: 10/01/23 Urinary Catheter Time of Insertion: 00:00 Data 10/08/23 04:15 10/08/23 04:15 A&P Assessment and plan (1) End stage renal disease: (2) Left renal mass: (3) Acute kidney injury superimposed on chronic kidney disease: (4) Seronegative rheumatoid arthritis of both hands: (5) Acute encephalopathy: (6) COPD (chronic obstructive pulmonary disease): Qualifiers: COPD type: unspecified COPD Qualified Code(s): J44.9 - Chronic obstructive pulmonary disease, unspecified (7) Acute and chronic respiratory failure with hypoxia: (8) Chronic obstructive lung disease: Plan Awaiting chair time and prior to admission approval medically cleared to be discharged Hemoglobin stable She will continue dialysis She will go back to long term will use BiPAP at night Attestations 2 Medical Necessity Statement*: Awaiting placement Diagnoses End stage renal disease N18.6 Left renal mass N28.89 Acute kidney injury superimposed on chronic kidney disease N17.9; N18.9 Seronegative rheumatoid arthritis of both hands M06.041; M06.042 Acute encephalopathy G93.40 Chronic obstructive pulmonary disease, unspecified COPD type J44.9 COPD type: unspecified COPD Acute and chronic respiratory failure with hypoxia J96.21
[2023-10-08] MEDS: insulin lispro 100 unit/1 mL SUBCUT ×2 (12:51→17:36)
--- NOTE | 2023-10-08 13:46 | PC.OT ---
OT EVALUATION ATTEMPTED THIS P.M. PATIENT SLEEPING SOUNDLY WITH BIPAP IN PLACE . WILL ATTEMPT AGAIN AT A LATER TIME.
[2023-10-08 17:00] LABS: Glucose Point of Care 162 mg/dL (70-110)
[2023-10-08 20:37] LABS: Glucose Point of Care 175 mg/dL (70-110)
--- NOTE | 2023-10-08 20:39 | P.PN_ITS ---
Subjective 2 Subjective: c/o sob Medications: Reviewed: Yes Vitals/I&O/Wt Last Vital Signs Temp 98.2 F 10/08/23 20:00 Pulse 93 10/08/23 20:03 Resp 19 H 10/08/23 20:00 BP 149/84 10/08/23 20:00 Pulse Ox 98 10/08/23 20:01 O2 Del Method Nasal Cannula 10/08/23 20:00 O2 Flow Rate 3 10/08/23 20:00 FiO2 35 10/08/23 20:01 10/08/23 10/08/23 10/08/23 06:59 14:59 22:59 Intake Total 960 / 960 480 / 1440 Output Total 350 / 1932 400 / 400 Balance -350 / -651 960 / 960 80 / 1040 Weight last 48 hrs Weight 113.398 kg Weight 0 g Weight 111.765 kg Physical Exam 2 Narrative: awake , alert in distress Urinary Catheter Management: Manzanares: Cath Placed During This Visit: yes Reason for Continuing Indwelling Catheter: Other Urinary Catheter Date of Insertion: 10/01/23 Urinary Catheter Time of Insertion: 00:00 Data 10/08/23 04:15 10/08/23 04:15 A&P Assessment and plan (1) End stage renal disease: Plan 1. End-stage renal disease: Patient stopped dialysis 3 weeks ago due to possible renal recovery, now presents with volume overload. -HD tomorrow -She will need to continue dialysis at discharge but can do HD 2 times per week with a low BFR to avoid hypotension postdialysis. -2 g sodium restriction and 1500 mill fluid restriction 2. Hypertension: Restart home meds, monitor 3. Anemia: Hemoglobin low, status post CARY with HD, 4. Acute on chronic respiratory failure, secondary to volume overload , Patient evaluated using audiovisual cart. Time spent 20 minutes Attestations 2 Medical Necessity Statement*: per nano Coding Level of Care Code Acute Code for Chg Fwd Diagnoses End stage renal disease N18.6
[2023-10-09] VITALS (11 sets, daily range): BP systolic 115–155; BP diastolic 68–91; PULSE 94–118; RESP 16–24; TEMP 36.6–36.9; O2SAT 93–99
[2023-10-09] MEDS: ipratropium-albuterol 3 mL Neb INHALATION (03:19)
[2023-10-09] MEDS: levothyroxine 150 mcg Tablet PO (05:47)
[2023-10-09] MEDS: duloxetine 60 mg Capsule PO (05:47)
[2023-10-09] MEDS: pyridostigmine 60 mg Tablet PO (05:47)
[2023-10-09 06:32] LABS: Glucose Point of Care 126 mg/dL (70-110)
[2023-10-09] MEDS: amiodarone 200 mg Tablet PO (08:26)
[2023-10-09] MEDS: pantoprazole DR 40 mg Tablet PO ×2 (08:26→16:51)
[2023-10-09 11:06] LABS: Glucose Point of Care 155 mg/dL (70-110)
--- NOTE | 2023-10-09 11:13 | P.PN_ITS ---
Subjective 2 Subjective: Chair time Sunday, awaiting prior authorization No overnight events Vitals/I&O/Wt Last Vital Signs Temp 98.4 F 10/09/23 07:49 Pulse 118 H 10/09/23 08:05 Resp 16 10/09/23 08:05 BP 133/87 10/09/23 07:49 Pulse Ox 94 10/09/23 08:05 O2 Del Method Nasal Cannula 10/09/23 08:05 O2 Flow Rate 3 10/09/23 08:05 FiO2 35 10/09/23 03:21 10/08/23 10/09/23 10/09/23 22:59 06:59 14:59 Intake Total 720 / 1680 120 / 120 Output Total 400 / 400 350 / 750 Balance 320 / 1280 -350 / 930 120 / 120 Weight last 48 hrs Weight 114.39 kg Weight 113.398 kg Weight 0 g Physical Exam 2 Narrative: Laying supine in right lateral position GCS 15 Nonfocal neuroexam S1, S2 Currently on 4 L Urinary Catheter Management: Manzanares: Cath Placed During This Visit: yes Reason for Continuing Indwelling Catheter: Other Urinary Catheter Date of Insertion: 10/01/23 Urinary Catheter Time of Insertion: 00:00 Data 10/08/23 04:15 10/08/23 04:15 A&P Assessment and plan (1) High risk medication use: (2) Anemia: (3) Acute on chronic kidney failure: (4) Acute kidney injury superimposed on chronic kidney disease: (5) Acute encephalopathy: (6) COPD (chronic obstructive pulmonary disease): Qualifiers: COPD type: unspecified COPD Qualified Code(s): J44.9 - Chronic obstructive pulmonary disease, unspecified (7) Acute and chronic respiratory failure with hypoxia: Plan Will discharge once we get prior authorization Chair time has been obtained Attestations 2 Medical Necessity Statement*: Awaiting placement Coding Level of Care Code Acute Code for Chg Fwd Diagnoses High risk medication use Z79.899 Anemia D64.9 Acute on chronic kidney failure N17.9; N18.9 Acute kidney injury superimposed on chronic kidney disease N17.9; N18.9 Acute encephalopathy G93.40 Chronic obstructive pulmonary disease, unspecified COPD type J44.9 COPD type: unspecified COPD Acute and chronic respiratory failure with hypoxia J96.21
[2023-10-09] MEDS: insulin lispro 100 unit/1 mL SUBCUT (12:29)
--- NOTE | 2023-10-09 14:14 | P.PN_ITS ---
Subjective 2 Subjective: no new comp,aints Medications: Reviewed: Yes Vitals/I&O/Wt Last Vital Signs Temp 98.4 F 10/09/23 07:49 Pulse 117 H 10/09/23 11:30 Resp 17 10/09/23 11:30 BP 131/76 10/09/23 11:30 Pulse Ox 97 10/09/23 11:30 O2 Del Method Nasal Cannula 10/09/23 11:30 O2 Flow Rate 3 10/09/23 08:05 FiO2 35 10/09/23 03:21 10/08/23 10/09/23 10/09/23 22:59 06:59 14:59 Intake Total 720 / 1680 240 / 240 Output Total 400 / 400 350 / 750 Balance 320 / 1280 -350 / 930 240 / 240 Weight last 48 hrs Weight 114.39 kg Weight 113.398 kg Weight 0 g Physical Exam 2 Narrative: awake , alert in distress Urinary Catheter Management: Manzanares: Cath Placed During This Visit: yes Reason for Continuing Indwelling Catheter: Other Urinary Catheter Date of Insertion: 10/01/23 Urinary Catheter Time of Insertion: 00:00 Data 10/08/23 04:15 10/08/23 04:15 A&P Assessment and plan (1) End stage renal disease: Plan 1. End-stage renal disease: Patient stopped dialysis 3 weeks ago due to possible renal recovery, now presents with volume overload. -HD tomorrow -She will need to continue dialysis at discharge but can do HD 2 times per week with a low BFR to avoid hypotension postdialysis. -2 g sodium restriction and 1500 mill fluid restriction 2. Hypertension: Restart home meds, monitor 3. Anemia: Hemoglobin low, status post CARY with HD, 4. Acute on chronic respiratory failure, secondary to volume overload , Patient evaluated using audiovisual cart. Time spent 20 minutes Attestations 2 Medical Necessity Statement*: per nano Coding Level of Care Code Acute Code for Chg Fwd Diagnoses End stage renal disease N18.6
[2023-10-09] MEDS: metoprolol tartrate 25 mg Tablet PO ×2 (15:15→20:36)
[2023-10-09 16:40] LABS: Glucose Point of Care 141 mg/dL (70-110)
[2023-10-09] MEDS: omega-3 fatty acids 1,000 mg Capsule 2000 MG PO (20:35)
[2023-10-09 21:45] LABS: Glucose Point of Care 164 mg/dL (70-110)
[2023-10-10] VITALS: BP 120/61; PULSE 92; RESP 18; TEMP 37; O2SAT 100
[2023-10-10 04:00] VITALS: BP 133/74; PULSE 100; RESP 16; RESP 24; TEMP 36.6; O2SAT 93; O2SAT 98
[2023-10-10] MEDS: pyridostigmine 60 mg Tablet PO (05:13)
[2023-10-10] MEDS: duloxetine 60 mg Capsule PO (05:14)
[2023-10-10] MEDS: levothyroxine 150 mcg Tablet PO (05:14)
[2023-10-10 06:34] LABS: Glucose Point of Care 148 mg/dL (70-110)
[2023-10-10 07:46] VITALS: PULSE 100; RESP 16; RESP 24; O2SAT 98
[2023-10-10 08:00] VITALS: BP 175/112; PULSE 87; RESP 18; TEMP 36.9; O2SAT 94
[2023-10-10] MEDS: amiodarone 200 mg Tablet PO (08:33)
[2023-10-10] MEDS: pantoprazole DR 40 mg Tablet PO (08:33)
[2023-10-10] MEDS: insulin lispro 100 unit/1 mL SUBCUT ×2 (08:33→13:37)
[2023-10-10] MEDS: metoprolol tartrate 25 mg Tablet PO (08:33)
[2023-10-10] MEDS: HYDROcodone-acetaminophen 5-325 mg Tablet 1 TAB PO (08:38)
[2023-10-10] MEDS: insulin glargine 100 units/1 mL 5 UNIT SUBCUT (10:22)
[2023-10-10 10:57] LABS: SARS Covid-2 Antigen negative (Negative)
--- NOTE | 2023-10-10 11:58 | PC.SOCIAL ---
IMM Update pg 2 of IMM updated and reviewed w/ patient. Copy provided and copy dated, initialed and placed in chart.
[2023-10-10 12:00] VITALS: BP 130/72; PULSE 81; RESP 18; TEMP 36.7; O2SAT 92
--- NOTE | 2023-10-10 12:02 | PM.DCS ---
Discharge Providers Date of Admission: 09/30/23 16:06 Date of Discharge: October 10, 2023 Attending Provider at Admission: Tim Robert MD Attending Provider at Discharge: Tim Robert MD Primary Care Provider: Davion Griggs MD Diagnoses at Discharge Discharge Diagnosis (1) End stage renal disease: Status: Acute Reason for Visit Reason for Visit: SOB Hospital Course Hospital Course 73 female who was admitted to the hospital for management evaluation of lethargy fatigue Rester distress, patient stopped dialysis 3 weeks ago, they were in the process of removing tunneled dialysis catheter, however she went into fluid overload, as per the she has not been using her BiPAP at the residential as well she is noncompliant, stays bedbound, they do see wound care nurse for her sacral ulcer, patient is bedbound from her arthritis, we were very close to intubation however patient improved significantly with use of BiPAP, we were able to dialyze her on day of admission and then on scheduled basis, she remained afebrile she was given ceftriaxone empirically however no active source of infection identified, for sacral ulcer I would let wound care nurse to bedside debridement once she goes back to the facility, as per the nephrology patient still needs dialysis she should not be taken off for now, we are finding chair time for her again, she will be discharged back to the facility, she is now requiring 2 to 3 L of oxygen during the daytime and BiPAP at night. Patient counseled to stay compliant with her BiPAP and dialysis schedule. She has become depressed with lack of appetite and low mood now because she was optimistic from going off dialysis and now is a major setback for her to stay dependent on her Please note she has a very difficult IV access I was able to place a right femoral vein central line access on admission which was removed next day, PICC line was placed within 24 hours of admission. I do see a gradual decline in her health and physical activity, she is dependent on BiPAP, dialysis which is very overwhelming for her and very poor quality of life. Patient and her not ready for palliative care. Please note she remained hypotensive after dialysis I would only continue metoprolol for her A-fib, she is not a candidate for anticoagulation due to significant history of GI bleed requiring blood transfusion in the past. Physical Exam Narrative: Fluid overload improving Sacral ulcer stage III-IV Sign of fluid lower lip improving Currently on 2 to 3 L In good spirits Ate breakfast on her own Sitting in a recliner Urinary Catheter Management: Manzanares: Cath Placed During This Visit: yes Reason for Continuing Indwelling Catheter: Accurate Measurement of Urinary Output in Critically Ill Patients Urinary Catheter Date of Insertion: 10/01/23 Urinary Catheter Time of Insertion: 00:00 Discharge Data Studies Completed and Pending Completed Studies During Hospitalization Category Date Time Status CXRP [XR chest 1V portable [id number]] Routine Exams 10/01/23 11:19 Completed XR chest 1V portable [id number] Stat Exams 09/30/23 14:26 Completed XR hip RT 1V wo/w pel [id number] Routine Exams 09/30/23 19:02 Completed Radiology Impressions Hip X-Ray 09/30/23 19:02 IMPRESSION: 1. Right femoral vascular catheter in place with tip in the region of the right external iliac vein. Consider correlation with pulsatility and blood glass to exclude intra-arterial placement Laboratory Results WBC 4.43 10^3/uL (3.29-11.43) 10/05/23 03:52 RBC 3.08 10^6/uL (3.85-5.65) L 10/05/23 03:52 Hgb 9.20 g/dL (11.27-16.99) L 10/05/23 03:52 Hct 29.6 % (36-47) L 10/05/23 03:52 MCV 96.1 fl (85-98) 10/05/23 03:52 MCH 29.9 pg (27-33) 10/05/23 03:52 MCHC 31.1 g/dL (30-55) 10/05/23 03:52 RDW 18.7 % (12.1-15.1) H 10/05/23 03:52 Plt Count 139 10^3/cmm (157-399) L 10/05/23 03:52 MPV 9.2 fL (7.4-10.4) 10/05/23 03:52 Neut % (Auto) 72.5 % 10/05/23 03:52 Lymph % (Auto) 12.6 % 10/05/23 03:52 Slope % (Auto) 11.5 % 10/05/23 03:52 Eos % (Auto) 0.9 % 10/05/23 03:52 Baso % (Auto) 0.7 % 10/05/23 03:52 Neut # (Auto) 3.21 10^3/uL (1.8-7.7) 10/05/23 03:52 Lymph # (Auto) 0.6 10^3/uL (0.8-4.8) L 10/05/23 03:52 Slope # (Auto) 0.5 10^3/uL (0.2-0.9) 10/05/23 03:52 Eos # (Auto) 0.0 10^3/uL (0.0-0.8) 10/05/23 03:52 Baso # (Auto) 0.0 10^3/uL (0.0-0.1) 10/05/23 03:52 Nucleated RBC % (auto) 0 % 10/05/23 03:52 Nucleated RBCs # 0.0 /100WBC 10/05/23 03:52 PT 15.00 SECONDS (12.1-14.9) H 09/30/23 14:21 INR 1.14 (0.8-1.2) 09/30/23 14:21 Specimen Type Arterial 10/01/23 05:15 Sample Site Brachial, right 10/01/23 05:15 ABG pH 7.42 (7.35-7.45) 10/01/23 05:15 ABG pCO2 52.7 mmHg (35-45) H 10/01/23 05:15 ABG pO2 116.0 mmHg (80.0-100.0) H 10/01/23 05:15 ABG PO2/FiO2 Ratio 0 10/01/23 05:15 ABG HCO3 34.2 mmol/L (22-26) H 10/01/23 05:15 ABG O2 Saturation 99.3 09/30/23 17:05 ABG Base Excess 8.8 mmol/L (-2.0-2.0) H 10/01/23 05:15 Memo Test N/a 10/01/23 05:15 A-a O2 Gradient 26.0 mmHg (5-10) H 09/30/23 17:05 Hematocrit 23.6 % (37-47) L 10/01/23 05:15 Hgb O2 Saturation 97.4 % (95-100) 09/30/23 17:05 Carboxyhemoglobin 1.4 %THgb (0.4-20.1) 09/30/23 17:05 Methemoglobin 0.5 % (0.4-1.5) 09/30/23 17:05 Total Hemoglobin 7.5 g/dL (12-16) L 09/30/23 17:05 Sodium 137.0 mmol/L (131-143) 09/30/23 17:05 Potassium 4.3 mmol/L (3.5-5.0) 09/30/23 17:05 Glucose 152.0 mg/dL (70-115) H 09/30/23 17:05 Ionized Calcium 1.3 mmol/L (1.1-1.4) 09/30/23 17:05 O2 Delivery Device Bipap 10/01/23 05:15 O2 Liters/Min 6.0 % 09/30/23 14:36 FiO2 35.0 % 10/01/23 05:15 Tidal Volume 0.45 10/01/23 05:15 PEEP 10.0 cmH20 10/01/23 05:15 Transportation Engineer ID Virgil 10/01/23 05:15 Sodium 136 mmol/L (136-145) 10/05/23 03:52 Potassium 3.8 mmol/L (3.5-5.1) 10/05/23 03:52 Chloride 98 mmol/L (98-107) 10/05/23 03:52 Carbon Dioxide 30 mmol/L (22-29) H 10/05/23 03:52 Anion Gap 11.8 (5-19) 10/05/23 03:52 BUN 27 mg/dL (8-23) H 10/05/23 03:52 Creatinine 1.7 mg/dL (0.5-0.9) H 10/05/23 03:52 GFR Calculation Not Reportable 10/05/23 03:52 Glucose 116 mg/dL (65-115) H 10/05/23 03:52 POC Glucose 110 mg/dL (70-110) 10/05/23 06:51 Calculated Osmolality 288 mOsm/kg (285-295) 10/05/23 03:52 Lactic Acid 1.6 mmol/L (0.5-2.2) 09/30/23 14:21 Calcium 8.6 mg/dL (8.5-10.5) 10/05/23 03:52 Phosphorus 3.5 mg/dL (2.5-4.5) 10/01/23 03:37 Magnesium 1.9 mg/dL (1.7-2.3) 10/01/23 03:37 Total Bilirubin 0.2 mg/dL (0.15-1.2) 10/04/23 05:10 AST 17 U/L (0-32) 10/04/23 05:10 ALT 18 U/L (0-33) 10/04/23 05:10 Alkaline Phosphatase 90 U/L (35-105) 10/04/23 05:10 Troponin T Baseline 187 ng/L (0-10) H* 09/30/23 14:21 Troponin T 120 Minute 166.6 ng/L (0-10) H 09/30/23 15:40 Delta Troponin T -20.4 ABS# (0-10) L 09/30/23 15:40 Troponin T Hi Sens 6Hr 191.9 ng/L (0-10) H 09/30/23 20:16 Troponin T Hi Sens 6Hr Delta 4.9 ng/L (0-12) 09/30/23 20:16 NT-Pro-B Natriuret Pep 19210 pg/mL (0-450) H 09/30/23 14:21 Total Protein 5.5 g/dL (6.6-8.7) L 10/04/23 05:10 Albumin 2.9 g/dL (3.5-5.2) L 10/04/23 05:10 Globulin 2.6 g/dL (1.3-4.6) 10/04/23 05:10 Procalcitonin 0.21 ng/mL (0-0.5) 09/30/23 14:21 Coronavirus 229E (PCR) Not detected (NOT DETECT) 10/04/23 10:00 Hep Bs Antigen Non-reactive (Nonreactive) 09/30/23 20:16 Hep Bs Antibody 25.2 (11.5-1000) 09/30/23 20:16 SARS-CoV-2 (PCR) Not detected (NOT DETECT) 10/04/23 10:00 Blood Type O Positive 10/02/23 13:38 Rho(D) Type Rh positive 10/02/23 13:38 Antibody Screen Negative 10/02/23 13:38 Crossmatch See Detail 10/02/23 13:38 Vitals Last Vital Signs Temp 98.2 F 10/05/23 00:15 Pulse 99 10/05/23 08:07 Resp 20 H 10/05/23 08:07 BP 129/81 10/05/23 08:07 Pulse Ox 96 10/05/23 08:07 O2 Del Method Nasal Cannula 10/05/23 08:07 O2 Flow Rate 3 10/05/23 08:07 FiO2 35 10/05/23 03:25 Discharge Plan Discharge Patient Disposition: Xfer SNF Condition: Stable Prescriptions: Continued nitroglycerin [Nitrostat] 0.4 mg tablet, sublingual 0.4 mg SUBLINGUAL Q5M PRN (Reason: Chest Pain) Qty: 30 3RF Rx Instructions: MAX 3 DOSES PER EPISODE levothyroxine [Euthyrox] 150 mcg tablet 150 mcg PO QAM calcium carbonate [Calcium 600] 600 mg calcium (1,500 mg) tablet 600 mg PO DAILY@12 furosemide [Lasix] 40 mg tablet 80 mg PO DAILY hydrocodone-acetaminophen 5-325 mg tablet 1 tab PO Q8H PRN (Reason: Pain) insulin glargine [Lantus Solostar U-100 Insulin] 100 unit/mL (3 mL) insulin pen 15 unit SUBCUT DAILY Rx Instructions: 3ML at HS magnesium L-lactate 84 mg tablet extended release 84 mg PO BID Qty: 180 3RF cholecalciferol (vitamin D3) [Vitamin D3] 25 mcg (1,000 unit) Tablet 1,000 unit PO QAM docusate sodium [Stool Softener] 250 mg Capsule 250 mg PO QAM cyanocobalamin (vitamin B-12) [Vitamin B-12] 500 mcg Tablet 500 mcg PO QAM pantoprazole 40 mg tablet,delayed release (DR/EC) 40 mg PO BID pyridostigmine bromide 60 mg tablet 60 mg PO QAM glucose 4 gram tablet,chewable 4 g PO PRN PRN (Reason: Hypoglycemia) Trelegy Ellipta 200-62.5-25 mcg blister with device 1 inh INHALATION DAILY Qty: 28 0RF atorvastatin 80 mg tablet 80 mg PO BEDTIME omega-3 fatty acids 1,000 mg Capsule 2,000 mg PO BEDTIME zinc acetate 50 mg (zinc) Capsule 50 mg PO DAILY@12 riboflavin (vitamin B2) [Vitamin B-2] 100 mg Tablet 100 mg PO QAM pyridoxine (vitamin B6) 500 mg Tablet 500 mg PO QAM folic acid 1 mg tablet 1 mg PO QAM duloxetine 60 mg capsule,delayed release(DR/EC) 60 mg PO QAM insulin lispro [Humalog U-100 Insulin] 100 unit/mL Solution See Rx Instructions .ROUTE .COMPLEX MDD 40 Qty: 10 0RF Rx Instructions: inject, subcut, TID with meals, based on low dose slding scale provided metolazone 2.5 mg Tablet See Rx Instructions .ROUTE .COMPLEX Rx Instructions: 2.5 mg orally ON SUNDAY AND SUNDAY acetaminophen 325 mg Tablet 650 mg PO QID PRN (Reason: Pain) amiodarone 200 mg tablet 200 mg PO DAILY meclizine 25 mg tablet 25 mg PO TID PRN (Reason: Nausea And Vomiting) Dulcolax (bisacodyl) 10 mg Suppository 10 mg GA DAILY PRN (Reason: Constipation) Nyamyc 100,000 unit/gram powder 1 applic TOPICAL DAILY PRN (Reason: Rash) metoprolol tartrate 25 mg tablet 25 mg PO BID Discontinued hydralazine 25 mg tablet 25 mg PO TID Referrals: Davion Griggs MD [Primary Care Provider] - Patient Instructions: Dialysis Diet (DC), Hemodialysis (DC) Discharge Attestations Time Spent in Discharge Care*: greater than 30 min Status at Discharge: Cognitive status at discharge: cognitively intact, Behavioral status at discharge: cooperative, Quality Metrics Clinical Quality Measures [ No reported AMI, CVA or VTE this stay] Coding Level of Care Code Acute Code for Chg Fwd Diagnoses End stage renal disease N18.6
[2023-10-10 12:04] LABS: Glucose Point of Care 146 mg/dL (70-110)
[2023-10-10 15:08] VITALS: BP 130/72; PULSE 81; RESP 18; TEMP 36.7; O2SAT 92
[2023-10-10] MEDS: heparin, porcine 1,000 unit/mL INJ 10 mL 1000 UNIT IV (15:14)
[2023-10-10] MEDS: heparin, porcine 1,000 unit/mL INJ 10 mL 10000 UNIT INTRACATH (15:15)
--- NOTE | 2023-10-10 18:19 | P.PN_ITS ---
Subjective 2 Subjective: getting hD Medications: Reviewed: Yes Vitals/I&O/Wt Last Vital Signs Temp 98.1 F 10/10/23 15:08 Pulse 81 10/10/23 15:08 Resp 18 10/10/23 15:08 BP 130/72 10/10/23 15:08 Pulse Ox 92 10/10/23 15:08 O2 Del Method Nasal Cannula 10/10/23 12:00 O2 Flow Rate 3 10/09/23 20:00 FiO2 35 10/10/23 07:46 10/10/23 10/10/23 10/10/23 06:59 14:59 22:59 Intake Total 120 / 120 Output Total 150 / 850 350 / 350 Balance -150 / -610 -230 / -230 Weight last 48 hrs Weight 111.674 kg Weight 114.39 kg Physical Exam 2 Narrative: awake , alert in distress Urinary Catheter Management: Manzanares: Cath Placed During This Visit: yes Reason for Continuing Indwelling Catheter: Required Immobilization for Trauma or Surgery or Anesthesia Urinary Catheter Date of Insertion: 10/01/23 Urinary Catheter Time of Insertion: 00:00 Data 10/08/23 04:15 10/08/23 04:15 A&P Assessment and plan (1) End stage renal disease: Plan 1. End-stage renal disease: Patient stopped dialysis 3 weeks ago due to possible renal recovery, now presents with volume overload. -HD today -She will need to continue dialysis at discharge but can do HD 2 times per week with a low BFR to avoid hypotension postdialysis. -2 g sodium restriction and 1500 mill fluid restriction 2. Hypertension: Restart home meds, monitor 3. Anemia: Hemoglobin low, status post CARY with HD, 4. Acute on chronic respiratory failure, secondary to volume overload , Patient evaluated using audiovisual cart. Time spent 20 minutes Attestations 2 Medical Necessity Statement*: per nano Coding Level of Care Code Acute Code for Chg Fwd Diagnoses End stage renal disease N18.6
== END 2023-10-10 15:05 | disposition skilled nursing facility (03) | DRG 291 ==
LOC: ER 15:58 → ICU 16:45 → MEDSURG 10-05 19:10
PROVIDERS: Family Medicine; Hospitalist; Admitting Provider Internal Medicine; Emergency Provider Internal Medicine; PCP Family Medicine; Visit Provider Internal Medicine
DX: I13.2 Hypertensive heart and chronic kidney disease with heart failure and with stage 5 chronic kidney disease, or end stage renal disease (principal); G93.41 Metabolic encephalopathy; I50.33 Acute on chronic diastolic (congestive) heart failure; N18.6 End stage renal disease; J96.22 Acute and chronic respiratory failure with hypercapnia; J96.21 Acute and chronic respiratory failure with hypoxia; E87.29 Other acidosis; I48.20 Chronic atrial fibrillation, unspecified; E11.22 Type 2 diabetes mellitus with diabetic chronic kidney disease; Z99.2 Dependence on renal dialysis; Z79.4 Long term (current) use of insulin; Z99.81 Dependence on supplemental oxygen; Z87.891 Personal history of nicotine dependence; Z99.89 Dependence on other enabling machines and devices; Z91.199 Patient's noncompliance with other medical treatment and regimen due to unspecified reason; E87.5 Hyperkalemia; D63.1 Anemia in chronic kidney disease; I95.1 Orthostatic hypotension; I16.0 Hypertensive urgency; K59.00 Constipation, unspecified; F43.12 Post-traumatic stress disorder, chronic; L89.152 Pressure ulcer of sacral region, stage 2; Z74.01 Bed confinement status; E78.5 Hyperlipidemia, unspecified; K74.60 Unspecified cirrhosis of liver; E03.9 Hypothyroidism, unspecified; F41.9 Anxiety disorder, unspecified; J44.9 Chronic obstructive pulmonary disease, unspecified; M79.7 Fibromyalgia; M06.4 Inflammatory polyarthropathy; M17.4 Other bilateral secondary osteoarthritis of knee; M06.042 Rheumatoid arthritis without rheumatoid factor, left hand; M06.041 Rheumatoid arthritis without rheumatoid factor, right hand; Z86.16 Personal history of COVID-19; I25.10 Atherosclerotic heart disease of native coronary artery without angina pectoris; F33.41 Major depressive disorder, recurrent, in partial remission
CPT/HCPCS: 36415; 36416; 36430; 36573; 36592; 36600; 51702; 71045; 73501; 80048; 80051; 80053; 82330; 82803; 82805; 82962; 83605; 83735; 83880; 84100; 84145; 84484; 85025; 85610; 86706; 86850; 86900; 86920; 87340; 87426; 87635; 90935; 93005; 94640; 94660; 96372; 96374; 96376; 97110; 97161; 97167; 97530; 97535; 99291; J0696; J1644; J1815; J1940; J2405; P9016; P9040; P9047; Q3014; Q4081

== ENCOUNTER 2023-10-12 00:22 | Inpatient (IN) | payer MEDICARE, SELFPAY ==
[2023-10-12] VITALS (99 sets, daily range): BP systolic 62–166; BP diastolic 44–113; PULSE 82–149; RESP 14–33; TEMP 35.8–37.1; O2SAT 90–100; BMI 37.9
--- NOTE | 2023-10-12 00:31 | XRR_ITS ---
PROCEDURE INFORMATION: Exam: XR Chest Exam date and time: 10/12/2023 12:40 AM Age: 73 years old Clinical indication: Dyspnea TECHNIQUE: Imaging protocol: Radiologic exam of the chest. Views: 1 view. COMPARISON: CR XR chest 1V portable [id number] 09/30/2023 2:45 PM FINDINGS: Tubes, catheters and devices: Right IJ approach central venous catheter positioned with its tip near the right upper cavoatrial junction. Lungs: Opacities in the left lung base and small right-sided pleural effusion. Pleural spaces: See Lungs finding. Heart/Mediastinum: Unremarkable. No cardiomegaly. Bones/joints: Unremarkable. XR/XR chest 1V portable [id number] IMPRESSION: Opacities in the left lung base and small right-sided pleural effusion.
--- NOTE | 2023-10-12 00:33 | ECG_ITS ---
[facility] [place] Test Date: 2023-10-12 Pat Name: Myesha Parker Department: Room: ICU12 Gender: Female Payroll Clerk: : 1950 Requested By: Severo Ramirez Order Number: [id number] Wilbur MD: Victoriano White M.D. Measurements Intervals [place] Rate: 133 P: 0 AR: 0 QRS: -79 QRSD: 150 T: 95 QT: 317 QTc: 472 Interpretive Statements ATRIAL FIBRILLATION WITH RAPID VENTRICULAR RESPONSE RIGHT BUNDLE BRANCH BLOCK [120+ ms QRS DURATION, UPRIGHT V1, 40+ ms S IN I/aVL/V4/V5/V6] ANTERIOR MYOCARDIAL INFARCTION , OF INDETERMINATE AGE [40+ ms Q WAVE AND/OR ST/T ABNORMALITY IN V3/V4] INFERIOR MYOCARDIAL INFARCTION , AGE INDETERMINATE Compared to ECG 09/30/2023 17:10:26 Right-axis deviation no longer present Myocardial infarct finding still present Electronically Signed On 10-12-2023 10:00:09 PIPE CLEANER by Victoriano White M.D. [id number]
[2023-10-12 01:01] LABS: INR 1.21 (0.8-1.2)
[2023-10-12 01:02] LABS: Partial Thromboplastin Time 25.9 SECONDS (23.9-36.7)
[2023-10-12 01:06] LABS: Lactic Sepsis W/Reflex 2.5 mmol/L (0.5-2.2)
[2023-10-12 01:07] LABS: Basophils # 0.1 10^3/uL (0.0-0.1); Basophils % 0.9 %; Eosinophils # 0.2 10^3/uL (0.0-0.8); Eosinophils % 1.6 %; Hematocrit 35.9 % (36-47); Lymphocytes # 1.7 10^3/uL (0.8-4.8); Lymphocytes % 19.1 %; Mean Corpuscular HGB Conc 29.5 g/dL (30-55); Mean Corpuscular Hemoglobin 29.1 pg (27-33); Mean Corpuscular Volume 98.6 fl (85-98); Mean Platelet Volume 9.7 fL (7.4-10.4); Monocytes # 0.6 10^3/uL (0.2-0.9); Neutrophils # 6.54 10^3/uL (1.8-7.7); Neutrophils % 71.6 %; Nucleated Red Blood Cells % 0 %; Platelet Count 251 10^3/cmm (157-399); Red Blood Count 3.64 10^6/uL (3.85-5.65); Red Cell Distribution Width 17.2 % (12.1-15.1); White Blood Count 9.13 10^3/uL (3.29-11.43)
[2023-10-12 01:16] LABS: NT Pro B Type Natriuretic Pept 11686 pg/mL (0-450); Procalcitonin 0.19 ng/mL (0-0.5)
[2023-10-12 01:19] LABS: Troponin(5th) Baseline 153 ng/L (0-10)
[2023-10-12 01:27] LABS: Alanine Aminotransferase 25 U/L (0-33); Albumin Level 3.4 g/dL (3.5-5.2); Alkaline Phosphatase 130 U/L (35-105); Blood Urea Nitrogen 43 mg/dL (8-23); Calcium 9.3 mg/dL (8.5-10.5); Carbon Dioxide 28 mmol/L (22-29); Chloride 95 mmol/L (98-107); Creatinine Clr Calc Pharmacy 44.5934; Glucose 309 mg/dL (65-115); Magnesium 1.7 mg/dL (1.7-2.3); Osmolality Calculated 305 mOsm/kg (285-295); Sodium 136 mmol/L (136-145); Total Bilirubin 0.4 mg/dL (0.15-1.2); Total Protein 6.4 g/dL (6.6-8.7)
[2023-10-12] MEDS: fentaNYL 50 mcg/mL INJ 2mL 100 MCG IVP ×2 (01:27→02:05)
[2023-10-12] MEDS: midazolam 1 mg/mL INJ 2 mL 2 MG IVP (01:27)
[2023-10-12] MEDS: succinylcholine 20 mg/mL SDV 10mL 150 MG IVP (01:28)
--- NOTE | 2023-10-12 01:32 | XRR_ITS ---
PROCEDURE INFORMATION: Exam: XR Chest Exam date and time: 10/12/2023 1:34 AM Age: 73 years old Clinical indication: Device placement; Other: Intubation TECHNIQUE: Imaging protocol: Radiologic exam of the chest. Views: 1 view. COMPARISON: CR (CHEST, ) 10/12/2023 12:40 AM FINDINGS: Tubes, catheters and devices: The ET tube is positioned 2.1 cm above the humberto. There is an NG tube which tracks into the stomach and off the field of view. Right-sided PICC and right IJ approach central venous catheters are redemonstrated. Lungs: See Pleural spaces finding. Pleural spaces: Small right-sided pleural effusion. Opacities throughout both lungs with a perihilar predominance which can be seen the setting of pulmonary vascular congestion. Heart/Mediastinum: Unremarkable. No cardiomegaly. Bones/joints: Unremarkable. XR/XR chest 1V portable [id number] IMPRESSION: Small right-sided pleural effusion. Opacities throughout both lungs with a perihilar predominance which can be seen the setting of pulmonary vascular congestion.
[2023-10-12 01:34] LABS: Anion Gap 18.6 (5-19); Potassium 5.6 mmol/L (3.5-5.1)
[2023-10-12 01:35] LABS: Aspartate Amino Transferase 51 U/L (0-32)
[2023-10-12] MEDS: propofol 1,000 MG/100 ML INJ 5 MG (01:37)
--- NOTE | 2023-10-12 01:41 | PC.NURSE ---
RSI notes, taken by marlon Najera Fentanyl 100mcg @0127 Versed 2mg @0127 Succs 150mg @0128 18g IV L wrist @0128 Intub sz 8 @0129 Tube removed, intub sz 7.5, 26 @ the lip, @0134 Propofol started at 5 @0137
[2023-10-12] MEDS: norepinephrine 4 MG/250 ML BAG 30 MG IV (01:50)
[2023-10-12] MEDS: norepinephrine 4 MG/250 ML BAG 37.5 MG IV (02:22)
[2023-10-12] MEDS: fentaNYL 1,000 MCG/100 ML BAG 2.5 MCG IV (02:28)
--- NOTE | 2023-10-12 02:33 | ECG_ITS ---
[facility] Test Date: 2023-10-12 Pat Name: Myesha Parker Department: Room: Gender: Female Citizenship Teacher: : 1950 Requested By: Severo Ramirez Order Number: [id number] Wilbur MD: Victoriano White M.D. Measurements Intervals [place] Rate: 102 P: 0 ME: 0 QRS: -76 QRSD: 156 T: 108 QT: 354 QTc: 462 Interpretive Statements ATRIAL FIBRILLATION WITH RAPID VENTRICULAR RESPONSE RIGHT BUNDLE BRANCH BLOCK [120+ ms QRS DURATION, UPRIGHT V1, 40+ ms S IN I/aVL/V4/V5/V6] LEFT ANTERIOR FASCICULAR BLOCK [QRS AXIS <= -45, QR IN I, RS IN II] POSSIBLE ANTERIOR MYOCARDIAL INFARCTION , PROBABLY OLD [30 ms Q WAVE IN V3/V4, OR R < 0.2 mV IN V4] Compared to ECG 09/30/2023 17:10:26 Left anterior fascicular block now present Right-axis deviation no longer present Myocardial infarct finding still present Electronically Signed On 10-12-2023 10:03:26 SHIP SCRAPER by Victoriano White M.D. [id number]
[2023-10-12 02:35] LABS: Reflex Lactate Order REFLEX LACTIC ORDERD
[2023-10-12] MEDS: heparin 5,000 unit/mL INJ 1 mL 4000 UNIT IVP (02:56)
[2023-10-12 02:57] LABS: ABG PCO2 43.8 mmHg (35-45); ABG PH Result 7.43 (7.35-7.45); Alveolar-Arterial Oxygen Gradi 42.8 mmHg (5-10); Arterial Blood Gas Hematocrit 32.4 % (37-47); Base Excess ABG 4.4 mmol/L (-2.0-2.0); Blood Gas Allen Test Pos; Blood Gas Sample Site Radial, left; Blood Gas Sample Type Arterial; Blood Gas Tidal Volume 0.45; Carboxyhemoglobin 1.1 %THgb (0.4-20.1); HCO3 ABG 29.2 mmol/L (22-26); HGB O2 Sat 98.9 % (95-100); Ionized Calcium Level - ABG 1.2 mmol/L (1.1-1.4); Methemoglobin 0.5 % (0.4-1.5); Oxygen Device VENT; Oxygen Saturation ABG > 100.0; PO2 FiO2 Ratio Arterial Blood 0; Potassium Level - ABG 4.2 mmol/L (3.5-5.0); Total Hemoglobin 10.6 g/dL (12-16)
[2023-10-12] MEDS: heparin drip 25,000 UNIT/500 ML PREMIX 44.4500000000000028 UNIT IV (02:58)
[2023-10-12 03:27] LABS: Lactic Acid level (Lactate) 2.8 mmol/L (0.5-2.2)
--- NOTE | 2023-10-12 03:31 | PC.NURSE ---
Manzanares Catheter: Pt arrived to hospital w/ Manzanares catheter in place. Verbal order from Dr. Blandon to remove old Manzanares catheter and insert new catheter.
[2023-10-12 03:34] LABS: Troponin 5 2HR 165.5 ng/L (0-10); Troponin 5 2HR Delta 12.5 ABS# (0-10)
--- NOTE | 2023-10-12 03:54 | P.HP_ITS ---
Providers/Chief Complaint 2 Admitting Physician: Milton Blandon Primary Care Provider: Davion Griggs MD Chief Complaint: A fib/RVR History of Present Illness 73-year-old lady with history of congestive heart failure, renal failure, CAD, HTN, COPD, HLD, MDD, sacral decubitus ulcer, hypotension, poor peripheral access, other medical problems discharged from the hospital on 10/10 after recent hospitalization for treatment of fluid overload, respiratory failure, continues to require dialysis after discharge, continue to dialysis twice weekly, return to the hospital due to shortness of breath/dyspnea on presentation (atrial fibrillation with RVR heart rate in 160s, EMS was called by senior care due to hypoxia and rapid pulse, she was cool and clammy. In ER in respiratory distress x-ray of the intubated, started mechanical ventilatory support, pulmonary congestive changes on chest x-ray, bilateral opacities, small right-sided pleural effusion, froth reported in ET tube upon intubation. Started on heparin drip in ER with noted moderate bilateral rising troponin elevation. Blood pressure soft after intubation had to be started on low rate Levophed support. Review of Systems 2 General: Reports: ROS unobtainable due to medical condition Medications/Allergies Home Medications Medication Instructions Recorded Confirmed Last Taken Type cholecalciferol (vitamin D3) 25 1,000 unit PO QAM 10/12/19 09/30/23 09/30/23 History mcg (1,000 unit) tablet (Vitamin D3) nitroglycerin 0.4 mg sublingual 0.4 mg sublingual Q5M PRN Chest 02/08/21 09/30/23 Unknown Rx tablet (Nitrostat) Pain #30 tabs cyanocobalamin (vitamin B-12) 500 500 mcg PO QAM 03/16/21 09/30/23 09/30/23 History mcg tablet (Vitamin B-12) docusate sodium 250 mg capsule 250 mg PO QAM 03/16/21 09/30/23 09/30/23 History (Stool Softener) calcium carbonate 600 mg calcium 600 mg PO DAILY@12 06/27/21 09/30/23 09/30/23 History (1,500 mg) tablet (Calcium) levothyroxine 150 mcg tablet 150 mcg PO QAM 06/27/21 09/30/23 09/30/23 History (Euthyrox) pantoprazole 40 mg tablet,delayed 40 mg PO BID 09/13/21 09/30/23 09/30/23 History release magnesium L-lactate 84 mg 84 mg PO BID #180 tabs 04/03/23 09/30/23 09/30/23 Rx tablet,extended release pyridostigmine bromide 60 mg tablet 60 mg PO QAM 04/17/23 09/30/23 09/30/23 History glucose 4 gram chewable tablet 4 g PO PRN PRN Hypoglycemia 06/17/23 09/30/23 Unknown History fluticasone fur. 200 mcg-umeclid 1 inh inhalation DAILY #28 ea 06/20/23 09/30/23 09/30/23 Rx 62.5 mcg-vilant 25 mcg inhalat.powder (Trelegy Ellipta) atorvastatin 80 mg tablet 80 mg PO BEDTIME 07/25/23 09/30/23 09/29/23 History duloxetine 60 mg capsule,delayed 60 mg PO QAM 07/25/23 09/30/23 09/30/23 History release folic acid 1 mg tablet 1 mg PO QAM 07/25/23 09/30/23 09/30/23 History omega-3 fatty acids 1,000 mg 2,000 mg PO BEDTIME 07/25/23 09/30/23 09/29/23 History capsule pyridoxine (vitamin B6) 500 mg 500 mg PO QAM 07/25/23 09/30/23 09/30/23 History tablet riboflavin (vitamin B2) 100 mg 100 mg PO QAM 07/25/23 09/30/23 09/30/23 History tablet (Vitamin B-2) zinc acetate 50 mg (zinc) capsule 50 mg PO DAILY@12 07/25/23 09/30/23 09/30/23 History insulin lispro 100 unit/mL See Rx Instructions .Route 08/17/23 09/30/23 09/30/23 Rx subcutaneous solution (Humalog .COMPLEX #10 mL U-100 Insulin) furosemide 40 mg tablet (Lasix) 80 mg PO DAILY 09/24/23 09/30/23 09/30/23 History hydrocodone 5 mg-acetaminophen 325 1 tab PO Q8H PRN Pain 09/24/23 09/30/23 09/30/23 History mg tablet insulin glargine 100 unit/mL (3 15 unit SUBCUT DAILY 09/24/23 09/30/23 09/29/23 History mL) subcutaneous pen (Lantus Solostar U-100 Insulin) acetaminophen 325 mg tablet 650 mg PO QID PRN Pain 09/30/23 09/30/23 Unknown History amiodarone 200 mg tablet 200 mg PO DAILY 09/30/23 09/30/23 09/30/23 History bisacodyl 10 mg rectal suppository 10 mg HI DAILY PRN Constipation 09/30/23 09/30/23 Unknown History (Dulcolax (bisacodyl)) meclizine 25 mg tablet 25 mg PO TID PRN Nausea And 09/30/23 09/30/23 09/29/23 History Vomiting metolazone 2.5 mg tablet See Rx Instructions .Route .COMPLEX 09/30/23 09/30/23 09/29/23 History metoprolol tartrate 25 mg tablet 25 mg PO BID 09/30/23 09/30/23 Unknown History nystatin 100,000 unit/gram topical 1 applic topical DAILY PRN Rash 09/30/23 09/30/23 Unknown History powder ([facility]) Allergies Allergy/AdvReac Type Severity Reaction Status Date / Time adhesive tape Allergy rash Verified 09/30/23 15:39 cinnamon Allergy sinus Verified 09/30/23 15:39 codeine Allergy unknown Verified 09/30/23 15:39 cedar Allergy sinus Uncoded 09/24/23 15:08 pine Allergy sinus Uncoded 09/24/23 15:08 pork food Allergy ADR-Nausea Uncoded 09/24/23 15:08 PFSH Acute 2 PFSH: Medical History (Updated 10/12/23 @ 04:41 by Milton Blandon MD) UTI (urinary tract infection) Major depressive disorder, recurrent episode, moderate with anxious distress Duodenal ulcer due to bacteria Psychiatric care Coronary artery disease Immunization counseling High risk medication use Chronic knee pain Chronic low back pain COVID-14 August 2020 Seronegative rheumatoid arthritis of both hands Intermittent atrial fibrillation Poorly controlled diabetes mellitus CHF exacerbation Narrow complex tachycardia Inflammatory arthritis Osteoarthritis of knees, bilateral Fibromyalgia Lung nodule Unstable angina Low back pain of over 3 months duration Urgency incontinence Left renal mass COPD (chronic obstructive pulmonary disease) Oxygen dependent, 2 L at baseline Anxiety and depression Hypothyroidism Liver cirrhosis Hyperlipidemia Hypertension Recurrent UTI Surgical History History of cholecystectomy History of thyroid surgery History of cardiac cath History of hysterectomy History of knee replacement Family History Other CAD (coronary artery disease) Cancer Denies family history of Anesthesia complication Bleeding disorder Social History Smoking and tobacco/nicotine status: former use of tobacco/nicotine Quit status (tobacco/nicotine): has quit using Year quit tobacco: 2005 Second hand smoke exposure: No Alcohol intake: never Substance/Drug Use: never Adopted: No Caregiver/support person: No Lives independently: No Household members: spouse Marital status: Current occupational status: retired Current gender identity: Female Vitals/I&O/Wt Last Vital Signs Temp 96.5 F L 10/12/23 00:27 Pulse 102 H 10/12/23 02:08 Resp 16 10/12/23 03:23 BP 130/81 10/12/23 02:08 Pulse Ox 91 10/12/23 03:23 O2 Del Method Mechanical Ventilation 10/12/23 02:08 FiO2 40 10/12/23 03:23 10/11/23 10/11/23 10/12/23 14:59 22:59 06:59 Intake Total 26.625 / 26.625 Balance 26.625 / 26.625 Weight last 48 hrs Weight 103.328 kg Weight 158.757 kg Physical Exam 2 Narrative: Accompanied by her . Const: GENERAL APPEARANCE: patient mechanically ventilated HENMT: COMMON NORMALS: oropharynx normal Neck/C-Spine: COMMON NORMALS: no JVD Resp: AUSCULTATION: rales, rhonchi and diminished lung sounds Cardio: COMMON NORMALS: no JVD, regular rhythm, S1 normal heart sound present, S2 normal heart sound present and No murmurs present (Cardio) RHYTHM: regular rhythm HEART SOUNDS: S1 normal heart sound present and S2 normal heart sound present GI: COMMON NORMALS: Normal to inspection, nondistended, normoactive bowel sounds present, Soft to palpation and non-tender PALPATION: Yes Soft to palpation Extremity: COMMON NORMALS: no joint enlargement GENERAL: Yes edema (1+) Skin: COMMON NORMALS: no rashes or lesions noted GENERAL SKIN EXAM: no rashes or lesions noted Data 10/12/23 00:33 10/12/23 00:33 Micro: Microbiology 10/12/23 00:44 Blood Culture - Preliminary Blood SPECIMEN COLLECTED 10/12/23 00:40 Blood Culture - Preliminary Blood SPECIMEN COLLECTED A&P Assessment and plan (1) Acute respiratory failure: Acute respiratory failure acute decompensated systolic CHF, underlying pulmonary hypertension, COPD, respiratory distress, requiring intubation, congestive changes, opacities on CT. Appears less likely pneumonia, afebrile, without leukocytosis, reviewed vitals, CBC, INR, PTT, ABG, CMP, procalcitonin, UA. Chest x-ray, EKG, troponin series. Reviewed ER note, discussed with ER physician. Does appear to have UTI, for now we will empirically cover for possibility of pneumonia as well. Likely should be able to hopefully de- escalate antibiotics. Discussed with her regarding decompensated congestive heart failure, possible NSTEMI with moderate but rising troponin trend. Reviewed with atrial fibrillation, RBBB. She does still produce urine but has been in renal failure and could not wean off dialysis. Will give Lasix IV 40 mg twice daily. At risk of electrolyte abnormality, reassess. However, also consulting nephrology for hemodialysis. She has a tunneled catheter in the right chest. Continue mechanical ventilatory support, and wean down as tolerating. Discussed with RT. Repeat ABG in the morning. (2) Congestive heart failure (CHF): As above. (3) NSTEMI (non-ST elevated myocardial infarction): Moderate but rising trend of troponin, but also in the setting of renal failure. Possible NSTEMI. Heparin drip has been started, aspirin. At risk of bleeding, reviewed hemoglobin, platelets. Follow-up CBC. Continue PPI IV twice daily. Monitor for bleeding. Assess TTE. At risk of arrhythmia, monitor on telemetry. (4) Renal failure: Appreciate nephrology consultation for dialysis. (5) UTI (urinary tract infection): Has had Manzanares catheter since last admission, catheter exchanged. UA sent, suggestive of UTI. Levaquin coverage for possible UTI, possible component of pneumonia. Plan CAD, HTN, COPD, breathing treatments. HLD, MDD, Sacral decubitus ulcer, wound care with home dressing Hypotension, difficulties with hypotension during last admission as well. Currently on low rate Levophed drip. Wean down as tolerating. Should be able to wean off better once able to wean down on sedation. Poor peripheral access: Has a right arm PICC line since last admission. PICC line site appears without erythema, swelling or drainage. Attestations 2 Medical Necessity Statement*: Admission over 2 midnights anticipated for assessment management of respiratory failure, decompensated CHF, NSTEMI in a lady with renal failure. Coding Level of Care Code Critical Care >/= 30 minutes Critical care time (in minutes): 40 The high probability of a clinically significant, sudden or life threatening deterioration, as referenced in this documentation, required my full and direct attention, intervention and personal management. The critical care time shown is in addition to time spent performing any reported separately billable procedures and includes the following: [x] Data and vital sign review and interpretation [x ] Patient assessment, examination and intervention [x] Medication orders and management [x] Patient/Family updates as able [x] Care Coordination and Documentation. Diagnoses Acute respiratory failure J96.00 Congestive heart failure (CHF) I50.9 NSTEMI (non-ST elevated myocardial infarction) I21.4 Renal failure N19 UTI (urinary tract infection) N39.0
--- NOTE | 2023-10-12 04:17 | PC.NURSE ---
PICC Line: Present on arrival to ICU. Dressing changed 10/12/23
[2023-10-12 04:22] LABS: Add Urine Microscopic? YES; Bilirubin Urine Neg (Negative); Blood Urine 3+ (Negative); Glucose Urine UA Norm (Normal); Ketones Urine Negative (Negative); Leukocyte Esterase Urine 2+ (Negative); Nitrate Urine Negative (Negative); Protein Urine Trace (Negative); Specific Gravity, Urine 1.015 (1.005-1.030); Urine Appearance Hazy (CLEAR); Urine Color Dark Yellow (Yellow); Urobilinogen Urine Neg (Negative); pH Urine 5 (5-7)
[2023-10-12 04:23] LABS: Add Urine Culture? Yes; Bacteria Urine 3+ /hpf; Hyaline Casts Urine 0-4 /lpf; Mucus Urine 2+ /hpf; RBC Urine 15-25 /hpf (0-2); Squamous Epithelial Cell Urine 0-4 /hpf (0-5); Transitional Epi Cells Urine 0-4 /hpf; WBC Urine 55-80 /hpf (0-5)
[2023-10-12] MEDS: propofol 1,000 MG/100 ML INJ 3.10000000000000009 MG IV (04:51)
[2023-10-12] MEDS: aspirin 81 mg EC Tablet PO (04:52)
[2023-10-12] MEDS: pantoprazole 40 mg SDV IVP ×2 (04:52→16:26)
--- NOTE | 2023-10-12 05:05 | USCV_ITS ---
Myesha Parker Age: 73 Gender: F : 1950 Exam Date: 10/12/2023 16:12 Ordering Phys: Milton Blandon MD Technologist: JODI Exam Location: [facility] – [place] Indication: ? ef and valves BP: 117 / 57 HR: 0 Rhythm: Other Technical Quality: Adequate MEASUREMENTS (Male / Female) Normal Values 2D ECHO LV Diastolic Diameter PLAX 3.5 cm 4.2 - 5.9 / 3.9 - 5.3 cm IVS Diastolic Thickness 1.7 cm 0.6 - 1.0 / 0.6 - 0.9 cm IVS Systolic Thickness 2.2 cm LVPW Diastolic Thickness 1.5 cm 0.6 - 1.0 / 0.6 - 0.9 cm LVPW Systolic Thickness 2.3 cm LVOT Diameter 2.0 cm LV Ejection Fraction 2D Teich 72.5 % LV Ejection Fraction MOD 2C 67.1 % Aorta at Sinotubular Diameter 2.9 cm M-MODE LA Ao Ratio MM 1.0 AV Cusp Separation MM 1.9 cm FINDINGS Left Ventricle Right Ventricle Right Atrium Left Atrium Mitral Valve Aortic Valve Tricuspid Valve Pulmonic Valve Pericardium Aorta IVC CONCLUSIONS Limited echocardiogram performed to assess LV systolic function. LV systolic function is normal with EF of 55 to 60%. No regional wall motion abnormalities are seen. Victoriano White MD (Electronically Signed) Final Date: 17 October 2023 09:02 S
--- NOTE | 2023-10-12 05:28 | PC.NURSE ---
Addendum entered by Carolyn Mejia RN 10/12/23 05:30: Witnessed waste of propofol. Original Note: Propofol: 30 ml of propofol that came with the patient from ER was wasted. A new bottle was hung and scanned. Carolyn CR witnessed the waste.
--- NOTE | 2023-10-12 05:30 | PC.NURSE ---
Heparin Drip: Dosing weight incorrect, Heparin stopped. See MAR for stop time. Pharmacy notified and dosing weight corrected. Dr. Blandon notified. New order to keep Heparin stopped until new ptt is drawn. Propfol dosing weight incorrect in IV pump. Dosing weight corrected. See MAR for titration.
[2023-10-12 06:16] LABS: Troponin 5 6HR 167.2 ng/L (0-10); Troponin 5 6HR Delta 14.2 ng/L (0-12)
[2023-10-12] MEDS: levofloxacin-dextrose 5 % 750 MG/150 ML PREMIX 100 MG IV (06:53)
--- NOTE | 2023-10-12 07:01 | W.ED.SOB ---
HPI - SOB/Dyspnea General: Chief Complaint: Shortness of Breath/Dyspnea Stated Complaint: A fib/RVR Time Seen by Provider: 10/12/23 00:30 History of Present Illness: HPI Narrative: 73-year-old female presents to the emergency department via EMS personnel from the [facility]. The patient is in acute respiratory distress and is unable to provide any additional information. The patient is accompanied by her who states that she was discharged from the hospital yesterday and has not received dialysis for the previous 2 days. He states that patient suddenly became short of breath and complained of some chest pain. Patient was discharged from the hospital on 10/10/2023. Related Data: Home oxygen amount: 2 liters Review of Systems General: Reports: 10 or more systems reviewed and unremarkable except in HPI and below PFSH ED PFSH: Medical History (Updated 10/12/23 @ 07:19 by Severo Ramirez MD) UTI (urinary tract infection) Major depressive disorder, recurrent episode, moderate with anxious distress Duodenal ulcer due to bacteria Psychiatric care Coronary artery disease Immunization counseling High risk medication use Chronic knee pain Chronic low back pain COVID-14 August 2020 Seronegative rheumatoid arthritis of both hands Intermittent atrial fibrillation Poorly controlled diabetes mellitus CHF exacerbation Narrow complex tachycardia Inflammatory arthritis Osteoarthritis of knees, bilateral Fibromyalgia Lung nodule Unstable angina Low back pain of over 3 months duration Urgency incontinence Left renal mass COPD (chronic obstructive pulmonary disease) Oxygen dependent, 2 L at baseline Anxiety and depression Hypothyroidism Liver cirrhosis Hyperlipidemia Hypertension Recurrent UTI Surgical History History of cholecystectomy History of thyroid surgery History of cardiac cath History of hysterectomy History of knee replacement Family History Other CAD (coronary artery disease) Cancer Denies family history of Anesthesia complication Bleeding disorder Social History Smoking and tobacco/nicotine status: former use of tobacco/nicotine Quit status (tobacco/nicotine): has quit using Year quit tobacco: 2005 Second hand smoke exposure: No Alcohol intake: never Substance/Drug Use: never Adopted: No Caregiver/support person: No Lives independently: No Household members: spouse Marital status: Current occupational status: retired Current gender identity: Female Physical Exam Narrative: EXAM NARRATIVE: Constitutional: the patient appears acutely ill and in significant respiratory distress. Vital signs as documented. Alert to noxious stimuli. Head, eyes, ears, nose, mouth, throat: Normocephalic, atraumatic. Pupils-equal, round, reactive to light. No scleral icterus. Normal-appearing external ears. Normal appearing nasal turbinates, no drainage. No obvious oral lesions, posterior oropharynx without erythema or exudates. Neck: Supple, trachea is midline, no lymphadenopathy, positive jugular venous distension. Lungs: Rhonchi throughout, significantly decreased in the bases bilaterally, tachypnea noted, symmetrical rise and fall of chest, significant respiratory distress with ineffective respirations. Cardiac: Atrial fibrillation with rapid ventricular response. No murmurs, rubs or gallops that I can appreciate Abdomen: Soft, non-tender to palpation, normal active bowel sounds to all quadrants. Well-healed midline surgical incision. Extremities: 2+ pulses in the upper extremities that are equal bilaterally, 2+ pulses in the lower extremities that are equal bilaterally. 2+ bilateral lower extremity brawny edema. Moves all extremities, sensation to all extremities are noted. Right upper extremity with peripherally inserted central catheter in place. Skin: Warm, dry, intact. Thorax: Patient does have a hemodialysis catheter to the anterior chest wall. Course ED course: PROCEDURE: RSI (RAPID SEQUENCE INTUBATION) Because of the patient's severe respiratory distress, and/or other factors, we proceeded with emergent rapid sequence intubation. We prepared by pre-oxygenating the patient, and checking the equipment such as the laryngoscope, ETTs, and suction. The crash cart and difficult airway box, were also readily available. The patient was maintained on a monitoring specialist, end-tidal CO2 monitor, oxygen, continuous pulse oximetry, and IV fluids were running. The patient was then induced using IV Versed and fentanyl. This was followed immediately by SUCCINYLCHOLINE, while maintaining gentle cricoid pressure. Once paralyzed, the vocal cords were visualized utilizing a Mac 4 Blade. Then a 8.0 endotracheal tube was placed using direct laryngoscopy. The cuff was inflated, and the tube was secured by the respiratory therapist. Tube placement was confirmed via auscultation, capnometry, condensation in the tube, and finally by portable CXR. The patient was then stabilized on a ventilator. Shortly thereafter, an ABG was obtained and analyzed. Subsequent to this, the patient was given adequate analgesia using a FENTYNAL DRIP and propofol drip, as well as other prn meds to make sure the patient was comfortable. Vital Signs: Vital signs: Vital Signs Temperature 96.5 F L 10/12/23 03:49 Pulse Rate 91 10/12/23 04:00 Respiratory Rate 18 10/12/23 03:49 Blood Pressure 130/81 10/12/23 03:49 Pulse Oximetry 100 10/12/23 03:49 Oxygen Delivery Me thod Mechanical Ventil ation 10/12/23 03:45 Fraction of Inspir ed Oxygen 50 10/12/23 03:45 MDM - SOB/Dyspnea Medical Decision Making Physical exam completed and documented, I will obtain a CBC, CMP, blood cultures, procalcitonin and lactic acid, chest x-ray and a urinalysis. Given the patient's presentation she is requiring immediate intubation with ventilatory support. Differential diagnosis includes acute congestive heart failure, NSTEMI, community-acquired pneumonia, viral illness, acute exacerbation of chronic pulmonary disease. Medical Records I reviewed the patient's medical records. Lab Data I reviewed the patient's lab results. 10/12/23 00:33 10/12/23 00:33 Labs/Radiology: Radiology Impressions Chest X-Ray 10/12/23 01:32 IMPRESSION: Small right-sided pleural effusion. Opacities throughout both lungs with a perihilar predominance which can be seen the setting of pulmonary vascular congestion. Laboratory Results WBC 9.13 10^3/uL (3.29-11.43) 10/12/23 00:33 RBC 3.64 10^6/uL (3.85-5.65) L 10/12/23 00:33 Hgb 10.60 g/dL (11.27-16.99) L 10/12/23 00:33 Hct 35.9 % (36-47) L 10/12/23 00:33 MCV 98.6 fl (85-98) H 10/12/23 00:33 MCH 29.1 pg (27-33) 10/12/23 00:33 MCHC 29.5 g/dL (30-55) L 10/12/23 00:33 RDW 17.2 % (12.1-15.1) H 10/12/23 00:33 Plt Count 251 10^3/cmm (157-399) 10/12/23 00:33 MPV 9.7 fL (7.4-10.4) 10/12/23 00:33 Neut % (Auto) 71.6 % 10/12/23 00:33 Lymph % (Auto) 19.1 % 10/12/23 00:33 Candler % (Auto) 6.0 % 10/12/23 00:33 Eos % (Auto) 1.6 % 10/12/23 00:33 Baso % (Auto) 0.9 % 10/12/23 00:33 Neut # (Auto) 6.54 10^3/uL (1.8-7.7) 10/12/23 00:33 Lymph # (Auto) 1.7 10^3/uL (0.8-4.8) 10/12/23 00:33 Candler # (Auto) 0.6 10^3/uL (0.2-0.9) 10/12/23 00:33 Eos # (Auto) 0.2 10^3/uL (0.0-0.8) 10/12/23 00:33 Baso # (Auto) 0.1 10^3/uL (0.0-0.1) 10/12/23 00:33 Nucleated RBC % (auto) 0 % 10/12/23 00: Nucleated RBCs # 0.0 /100WBC 10/12/23 00:33 PT 15.70 SECONDS (12.1-14.9) H 10/12/23 00:33 INR 1.21 (0.8-1.2) H 10/12/23 00:33 APTT 25.9 SECONDS (23.9-36.7) 10/12/23 00:33 Specimen Type Arterial 10/12/23 02:46 Sample Site Radial, left 10/12/23 02:46 ABG pH 7.43 (7.35-7.45) 10/12/23 02:46 ABG pCO2 43.8 mmHg (35-45) 10/12/23 02:46 ABG pO2 323.0 mmHg (80.0-100.0) H 10/12/23 02:46 ABG PO2/FiO2 Ratio 0 10/12/23 02:46 ABG HCO3 29.2 mmol/L (22-26) H 10/12/23 02:46 ABG O2 Saturation > 100.0 10/12/23 02:46 ABG Base Excess 4.4 mmol/L (-2.0-2.0) H 10/12/23 02:46 Memo Test Pos 10/12/23 02:46 A-a O2 Gradient 42.8 mmHg (5-10) H 10/12/23 02:46 Hematocrit 32.4 % (37-47) L 10/12/23 02:46 Hgb O2 Saturation 98.9 % (95-100) 10/12/23 02:46 Carboxyhemoglobin 1.1 %THgb (0.4-20.1) 10/12/23 02:46 Methemoglobin 0.5 % (0.4-1.5) 10/12/23 02:46 Total Hemoglobin 10.6 g/dL (12-16) L 10/12/23 02:46 Sodium 141.0 mmol/L (131-143) 10/12/23 02:46 Potassium 4.2 mmol/L (3.5-5.0) 10/12/23 02:46 Glucose 218.0 mg/dL (70-115) H 10/12/23 02:46 Ionized Calcium 1.2 mmol/L (1.1-1.4) 10/12/23 02:46 O2 Delivery Device Vent 10/12/23 02:46 FiO2 100.0 % 10/12/23 02:46 Tidal Volume 0.45 10/12/23 02:46 PEEP 8.0 cmH20 10/12/23 02:46 Field Service Analyst ID [email or web address] 10/12/23 02:46 Sodium 136 mmol/L (136-145) 10/12/23 00:33 Potassium 5.6 mmol/L (3.5-5.1) H 10/12/23 00:33 Chloride 95 mmol/L (98-107) L 10/12/23 00:33 Carbon Dioxide 28 mmol/L (22-29) 10/12/23 00:33 Anion Gap 18.6 (5-19) 10/12/23 00:33 BUN 43 mg/dL (8-23) H 10/12/23 00:33 Creatinine 1.8 mg/dL (0.5-0.9) H 10/12/23 00:33 GFR Calculation Not Reportable 10/12/23 00:33 Glucose 309 mg/dL (65-115) H 10/12/23 00:33 Calculated Osmolality 305 mOsm/kg (285-295) H 10/12/23 00:33 Lactic Acid 2.5 mmol/L (0.5-2.2) H 10/12/23 00:33 Calcium 9.3 mg/dL (8.5-10.5) 10/12/23 00:33 Magnesium 1.7 mg/dL (1.7-2.3) 10/12/23 00:33 Total Bilirubin 0.4 mg/dL (0.15-1.2) 10/12/23 00:33 AST 51 U/L (0-32) H 10/12/23 00:33 ALT 25 U/L (0-33) 10/12/23 00:33 Alkaline Phosphatase 130 U/L (35-105) H 10/12/23 00:33 Troponin T Baseline 153 ng/L (0-10) H* 10/12/23 00:33 NT-Pro-B Natriuret Pep 30933 pg/mL (0-450) H 10/12/23 00:33 Total Protein 6.4 g/dL (6.6-8.7) L 10/12/23 00:33 Albumin 3.4 g/dL (3.5-5.2) L 10/12/23 00:33 Globulin 3.0 g/dL (1.3-4.6) 10/12/23 00:33 Procalcitonin 0.19 ng/mL (0-0.5) 10/12/23 00:33 All radiology interpretation(s) finalized by discharge Critical Care Time Critical Care Time: Critical Care Time: Yes Total Critical Care Time: 45 Attestation: The patients was emergently evaluated as this patient's presentation and case had a high probability of a clinically significant, sudden, or life threatening deterioration of this patient's initial critical presentation or condition which required my full and direct attention, intervention and personal management. Discharge Plan Discharge Patient Disposition: Admitted As Inpatient Admit Provider: Milton Blandon Clinical Impression: Acute respiratory failure, Acute exacerbation of CHF (congestive heart failure), Acute non-ST elevation myocardial infarction (NSTEMI) Condition: Stable Coding Level of Care Code ED R[place]hener for Chg Fwd
[2023-10-12] MEDS: heparin, porcine 1,000 unit/mL INJ 10 mL 1000 UNIT IV (07:32)
--- NOTE | 2023-10-12 07:44 | PC.HD ---
Patient intubated but awake; unable to sign but nodded consent for hemodialysis and telenephrology. Witnessed by TAYO Sutton.
[2023-10-12 07:50] LABS: Glucose Point of Care 205 mg/dL (70-110)
[2023-10-12 08:05] LABS: ABG PCO2 33.7 mmHg (35-45); ABG PH Result 7.55 (7.35-7.45); HCO3 ABG 29.6 mmol/L (22-26); PO2 FiO2 Ratio Arterial Blood 0
[2023-10-12 08:06] LABS: Arterial Blood Gas Hematocrit 31.4 % (37-47); Blood Gas Drawn By MONRO; Blood Gas Operator Identificat MONRO; Blood Gas Sample Site LB; Blood Gas Sample Type ART; Blood Gas Tidal Volume 450; Oxygen Device VENT
[2023-10-12] MEDS: ipratropium-albuterol 3 mL Neb INHALATION ×3 (08:27→20:01)
[2023-10-12] MEDS: fentaNYL 1,000 MCG/100 ML BAG 7.5 MCG IV (08:29)
--- NOTE | 2023-10-12 08:45 | ECG_ITS ---
[facility] Test Date: 2023-10-12 Pat Name: Myesha Parker Department: Room: ICU12 Gender: Female Risk Management Professional: : 1950 Requested By: Severo Ramirez Order Number: [id number] Wilbur MD: Victoriano White M.D. Measurements Intervals [place] Rate: 110 P: 0 [place]: 0 QRS: 269 QRSD: 154 T: 77 QT: 433 QTc: 586 Interpretive Statements ATRIAL FIBRILLATION WITH RAPID VENTRICULAR RESPONSE WITH ABERRANT CONDUCTION OR VENTRICULAR PREMATURE COMPLEXES RIGHT AXIS DEVIATION [QRS AXIS > 100] RIGHT BUNDLE BRANCH BLOCK [120+ ms QRS DURATION, UPRIGHT V1, 40+ ms S IN I/aVL/V4/V5/V6] POSSIBLE ANTERIOR MYOCARDIAL INFARCTION , OF INDETERMINATE AGE [30 ms Q WAVE IN V3/V4, OR R < 0.2 mV IN V4] Compared to ECG 10/12/2023 02:27:51 Ventricular premature complex(es) now present Aberrant conduction of supraventricular beat(s) now present Right-axis deviation now present Left anterior fascicular block no longer present Myocardial infarct finding still present Electronically Signed On 10-12-2023 14:02:50 EXECUTIVE ADMINISTRATIVE ASSISTANT by Victoriano White M.D. [id number]
[2023-10-12 09:07] LABS: Partial Thromboplastin Time 72.9 SECONDS (23.9-36.7)
--- NOTE | 2023-10-12 09:15 | PC.PHAR ---
pt is from [facility]-medications entered are from the pts mar and tar that were sent with the pt
--- NOTE | 2023-10-12 09:33 | PM.CONSULT ---
Providers/Reason For Consult Consulting Physician/Specialty*: Victoriano White MD/ Cardiology Reason for Consult*: Troponin elevated/afib with RVR Requesting Physician: Dr Ramirez Attending Physician: Adriane Terry MD Primary Care Provider: Davion Griggs MD History of Present Illness History of Present Illness Myesha Parker is a 73 year old female with past medical history of atrial fibrillation, CAD, end-stage renal disease, diabetes who presented to hospital with worsening shortness of breath. She was intubated in the emergency room. Cardiology was consulted as her troponins were elevated at 153 at baseline with minimal increase to 167 at 6 hours. EKG shows A-fib with RVR and right bundle branch block. Blood pressure was low and was put on levophed. Review of Systems General: Reports: ROS unobtainable due to endotracheal tube Medications/Allergies Home Medications Medication Instructions Recorded Confirmed Last Taken Type cholecalciferol (vitamin D3) 25 1,000 unit PO DAILY@10/12/19 10/12/23 09/30/23 History mcg (1,000 unit) tablet (Vitamin D3) nitroglycerin 0.4 mg sublingual 0.4 mg sublingual Q5M PRN Chest 02/08/21 10/12/23 Unknown Rx tablet (Nitrostat) Pain #30 tabs cyanocobalamin (vitamin B-12) 500 500 mcg PO DAILY@03/16/21 10/12/23 09/30/23 History mcg tablet (Vitamin B-12) docusate sodium 250 mg capsule 250 mg PO DAILY@03/16/21 10/12/23 09/30/23 History (Stool Softener) calcium carbonate 600 mg calcium 600 mg PO DAILY@06/27/21 10/12/23 09/30/23 History (1,500 mg) tablet (Calcium) levothyroxine 150 mcg tablet 150 mcg PO DAILY@06/27/21 10/12/23 09/30/23 History (Euthyrox) pantoprazole 40 mg tablet,delayed 40 mg PO BID 09/13/21 10/12/23 09/30/23 History release pyridostigmine bromide 60 mg tablet 60 mg PO DAILY@04/17/23 10/12/23 09/30/23 History glucose 4 gram chewable tablet 4 g PO PRN PRN Hypoglycemia 06/17/23 10/12/23 Unknown History fluticasone fur. 200 mcg-umeclid 1 inh inhalation DAILY #28 ea 06/20/23 10/12/23 09/30/23 Rx 62.5 mcg-vilant 25 mcg inhalat.powder (Trelegy Ellipta) atorvastatin 80 mg tablet 80 mg PO BEDTIME@20 07/25/23 10/12/23 09/29/23 History duloxetine 60 mg capsule,delayed 60 mg PO DAILY@07/25/23 10/12/23 09/30/23 History release folic acid 1 mg tablet 1 mg PO DAILY@07/25/23 10/12/23 09/30/23 History omega-3 fatty acids 1,000 mg 1,000 mg PO BEDTIME 07/25/23 10/12/23 09/29/23 History capsule riboflavin (vitamin B2) 100 mg 100 mg PO DAILY@07/25/23 10/12/23 09/30/23 History tablet (Vitamin B-2) zinc acetate 50 mg (zinc) capsule 50 mg PO DAILY@07/25/23 10/12/23 09/30/23 History insulin lispro 100 unit/mL See Rx Instructions .Route 08/17/23 10/12/23 09/30/23 Rx subcutaneous solution (Humalog .COMPLEX #10 mL U-100 Insulin) furosemide 40 mg tablet (Lasix) 80 mg PO DAILY@09/24/23 10/12/23 09/30/23 History hydrocodone 5 mg-acetaminophen 325 1 tab PO TID PRN Pain 09/24/23 10/12/23 09/30/23 History mg tablet insulin glargine 100 unit/mL (3 15 unit SUBCUT BEDTIME 09/24/23 10/12/23 09/29/23 History mL) subcutaneous pen (Lantus Solostar U-100 Insulin) acetaminophen 325 mg tablet 650 mg PO Q6H PRN Pain 09/30/23 10/12/23 Unknown History amiodarone 200 mg tablet 200 mg PO DAILY@09/30/23 10/12/23 09/30/23 History bisacodyl 10 mg rectal suppository 10 mg IN DAILY PRN if no bm x3 days 09/30/23 10/12/23 Unknown History (Dulcolax (bisacodyl)) meclizine 25 mg tablet 25 mg PO TID PRN Nausea And 09/30/23 10/12/23 09/29/23 History Vomiting metolazone 2.5 mg tablet See Rx Instructions .Route .COMPLEX 09/30/23 10/12/23 09/29/23 History metoprolol tartrate 25 mg tablet 25 mg PO BID 09/30/23 10/12/23 Unknown History nystatin 100,000 unit/gram topical See Rx Instructions .Route .COMPLEX 09/30/23 10/12/23 Unknown History powder ([facility]) apixaban 2.5 mg tablet (Eliquis) 2.5 mg PO BID 10/12/23 10/12/23 Unknown History magnesium L-lactate 84 mg 84 mg PO DAILY@08 10/12/23 10/12/23 Unknown History tablet,extended release methotrexate sodium 2.5 mg tablet 15 mg PO Q7D 10/12/23 10/12/23 Unknown History pyridoxine (vitamin B6) 250 mg 500 mg PO DAILY@08 10/12/23 10/12/23 Unknown History tablet (Vitamin B-6) sodium chloride 0.9 % (flush) See Rx Instructions .Route .COMPLEX 10/12/23 10/12/23 Unknown History (Normal Saline Flush 0.9 % injection syringe) sodium chloride 0.9 % (flush) See Rx Instructions .Route .COMPLEX 10/12/23 10/12/23 Unknown History (Normal Saline Flush 0.9 % injection syringe) wound dressings (Triad Wound See Rx Instructions .Route .COMPLEX 10/12/23 10/12/23 Unknown History Dressing paste) Allergies Allergy/AdvReac Type Severity Reaction Status Date / Time adhesive tape Allergy rash Verified 09/30/23 15:39 cinnamon Allergy sinus Verified 09/30/23 15:39 codeine Allergy unknown Verified 09/30/23 15:39 cedar Allergy sinus Uncoded 09/24/23 15:08 pine Allergy sinus Uncoded 09/24/23 15:08 pork food Allergy ADR-Nausea Uncoded 09/24/23 15:08 Current Medications Generic Name Dose Route Start Last Admin Trade Name Freq PRN Reason Stop Dose Admin Albuterol/Ipratropium 3 ml 10/12/23 08:00 10/12/23 08:27 Ipratropium-Albuterol 3 Ml Neb INHALATION 3 ml Q6H.RESP JOCE Administration Aspirin 81 mg 10/12/23 03:51 10/12/23 04:52 Aspirin 81 Mg Ec Tablet PO 81 mg DAILY JOCE Administration norepinephrine 4 mg in 250 mls @ 0 mls/hr 10/12/23 01:45 10/12/23 08:55 Levophed IV 6 mcg/min .Q0M JOCE 22.5 mls/hr Titration Protocol Per Protocol Fentanyl 1,000 mcg in 100 mls @ 0 mls/hr 10/12/23 02:15 10/12/23 08:29 Sublimaze IV 75 mcg/hr .Q0M JOCE 7.5 mls/hr Administration Protocol Per Protocol Propofol 1,000 mg in 100 mls @ 0 mls/hr 10/12/23 04:00 10/12/23 04:51 Diprivan IV 5 mcg/kg/min .Q0M JOCE 3.1 mls/hr Administration Protocol Per Protocol Levofloxacin/Dextrose 750 mg in 150 mls @ 100 mls/hr 10/12/23 05:30 10/12/23 06:53 Levaquin-D5w IV 100 mls/hr Q48H JOCE Administration Pantoprazole Sodium 40 mg 10/12/23 04:00 10/12/23 04:52 Pantoprazole 40 Mg Sdv IVP 40 mg Q12H JOCE Administration PFSH Acute PFSH: Medical History UTI (urinary tract infection) Major depressive disorder, recurrent episode, moderate with anxious distress Duodenal ulcer due to bacteria Psychiatric care Coronary artery disease Immunization counseling High risk medication use Chronic knee pain Chronic low back pain COVID-14 August 2020 Seronegative rheumatoid arthritis of both hands Intermittent atrial fibrillation Poorly controlled diabetes mellitus CHF exacerbation Narrow complex tachycardia Inflammatory arthritis Osteoarthritis of knees, bilateral Fibromyalgia Lung nodule Unstable angina Low back pain of over 3 months duration Urgency incontinence Left renal mass COPD (chronic obstructive pulmonary disease) Oxygen dependent, 2 L at baseline Anxiety and depression Hypothyroidism Liver cirrhosis Hyperlipidemia Hypertension Recurrent UTI Surgical History History of cholecystectomy History of thyroid surgery History of cardiac cath History of hysterectomy History of knee replacement Family History Other CAD (coronary artery disease) Cancer Denies family history of Anesthesia complication Bleeding disorder Social History Smoking and tobacco/nicotine status: former use of tobacco/nicotine Quit status (tobacco/nicotine): has quit using Year quit tobacco: 2005 Second hand smoke exposure: No Alcohol intake: never Substance/Drug Use: never Adopted: No Caregiver/support person: No Lives independently: No Household members: spouse Marital status: Current occupational status: retired Current gender identity: Female Vitals/I&O/Wt Last Vital Signs Temp 98.6 F 10/12/23 07:43 Pulse 111 H 10/12/23 08:27 Resp 14 10/12/23 08:33 BP 158/88 10/12/23 07:43 Pulse Ox 96 10/12/23 08:33 O2 Del Method Mechanical Ventilation 10/12/23 08:27 FiO2 28 10/12/23 08:33 10/11/23 10/12/23 10/12/23 22:59 06:59 14:59 Intake Total 171.065 / 171.065 105.125 / 105.125 Balance 171.065 / 171.065 105.125 / 105.125 Weight last 48 hrs Weight 227 lb 12.8 oz Weight 227 lb 12.8 oz Weight 227 lb 12.8 oz Weight 350 lb Physical Exam Narrative: GENERAL: Patient is intubated and sedated NECK: No jugular vein distension. [] HEENT: No cyanosis. No icterus. No pallor. [] HEART: Irregularly irregular LUNGS: Diminished air entry CENTRAL NERVOUS SYSTEM: Grossly nonfocal. [] EXTREMITIES: Lower extremities with 1+ edema bilaterally Urinary Catheter Management: Manzanares: Cath Placed During This Visit: yes Reason for Continuing Indwelling Catheter: Accurate Measurement of Urinary Output in Critically Ill Patients Urinary Catheter Date of Insertion: 10/12/23 Urinary Catheter Time of Insertion: 03:57 Data 10/12/23 00:33 10/12/23 00:33 Micro: Microbiology 10/12/23 00:44 Blood Culture - Preliminary Blood SPECIMEN COLLECTED 10/12/23 00:40 Blood Culture - Preliminary Blood SPECIMEN COLLECTED A&P Assessment and plan (1) Acute respiratory failure: (2) Congestive heart failure (CHF): (3) NSTEMI (non-ST elevated myocardial infarction): (4) Renal failure: (5) UTI (urinary tract infection): (6) Atrial fibrillation with RVR: Plan Patient has presented with respiratory failure. She is intubated Was in atrial fibrillation with RVR. Possible underlying infection. On antibiotics and Levophed as well. Currently getting hemodialysis. It will improve volume status Once Levophed is weaned off, heart rate will improve. It is around 100 bpm at this time. Can start amiodarone drip if heart rate is still uncontrolled. Can continue with anticoagulation if tolerates Echocardiogram ordered. Troponin elevation is around baseline as she has ESRD. Minimal uptrend. Once she stabilizes, can plan on stress test. Thank you for involving us with care of this patient. Please call with questions. Consult Attestations Medical Necessity Statement: Care expected to cross 2midnights. Coding Level of Care Code Acute Code for [facility] Diagnoses Acute respiratory failure J96.00 Congestive heart failure (CHF) I50.9 NSTEMI (non-ST elevated myocardial infarction) I21.4 Renal failure N19 UTI (urinary tract infection) N39.0 Atrial fibrillation with RVR I48.91
[2023-10-12] MEDS: heparin drip 25,000 UNIT/500 ML PREMIX 28.9299999999999997 UNIT IV ×2 (10:00→10:11)
--- NOTE | 2023-10-12 10:13 | P.MISC_ITS ---
Miscellaneous Note Purpose of Documentation: Seen this morning. Patient undergoing dialysis at this time. Pressure 80/52, heart rate 120. On 6 mics of Levophed. On 20 of propofol and 12.5 of fentanyl IV. FiO2 28%. ABG reviewed from this morning. After dialysis has ended, we will attempt to wean off Levophed and turn off sedation and do a spontaneous breathing trial. Plan to extubate patient today if possible. Lungs clear to auscultation bilaterally, normal S1-S2, tachycardic, hypotensive Abdomen soft nontender. Intubated sedated does not appear to be in acute distress at this time. Discussed with cardiology. Troponin not very significantly elevated and it is close to her baseline. Patient does have end-stage renal disease. Once patient is extubated we may be able to do a stress test on her. Updated RT, nursing staff, discussed with surveillance camera technician as well. Note: The high probability of a clinically significant, sudden or life threatening deterioration of the patient's [respiratory, cardiovascular, renal] system(s) required my full and direct attention, intervention and personal management. The critical care time is as shown. This time is in addition to time spent performing any reported procedures but includes the following: [x] Data and vital sign review and interpretation [x] Patient assessment, examination and intervention [x] Documentation [x] Medication orders and management Critical Care Time (min): 45
[2023-10-12] MEDS: heparin, porcine 1,000 unit/mL INJ 10 mL 10000 UNIT INTRACATH (10:34)
--- NOTE | 2023-10-12 11:01 | PC.SOCIAL ---
Pg 2 IMM Explained to pt's family Pg 2 IMM. No questions voiced. Provided pt a copy. Initialed, dated & timed a copy & placed in chart.
--- NOTE | 2023-10-12 13:05 | P.CONIM_ITS ---
Providers/Reason For Consult 2 Consulting Physician/Specialty*: Jaclyn Farley DO, telenephrology Reason for Consult*: ESRD Requesting Physician: Adriane Terry MD Attending Physician: Adriane Terry MD Primary Care Provider: Davion Griggs MD History of Present Illness History of Present Illness Myesha Parker is a 73 year old female admitted with Afib, RVR, respiratory distress, intubated in ER Had discontinued, then resumed HD 2x weekly Review of Systems 2 General: Reports: ROS unobtainable due to endotracheal tube Medications/Allergies Home Medications Medication Instructions Recorded Confirmed Last Taken Type cholecalciferol (vitamin D3) 25 1,000 unit PO DAILY@10/12/19 10/12/23 09/30/23 History mcg (1,000 unit) tablet (Vitamin D3) nitroglycerin 0.4 mg sublingual 0.4 mg sublingual Q5M PRN Chest 02/08/21 10/12/23 Unknown Rx tablet (Nitrostat) Pain #30 tabs cyanocobalamin (vitamin B-12) 500 500 mcg PO DAILY@03/16/21 10/12/23 09/30/23 History mcg tablet (Vitamin B-12) docusate sodium 250 mg capsule 250 mg PO DAILY@03/16/21 10/12/23 09/30/23 History (Stool Softener) calcium carbonate 600 mg calcium 600 mg PO DAILY@06/27/21 10/12/23 09/30/23 History (1,500 mg) tablet (Calcium) levothyroxine 150 mcg tablet 150 mcg PO DAILY@06/27/21 10/12/23 09/30/23 History (Euthyrox) pantoprazole 40 mg tablet,delayed 40 mg PO BID 09/13/21 10/12/23 09/30/23 History release pyridostigmine bromide 60 mg tablet 60 mg PO DAILY@04/17/23 10/12/23 09/30/23 History glucose 4 gram chewable tablet 4 g PO PRN PRN Hypoglycemia 06/17/23 10/12/23 Unknown History fluticasone fur. 200 mcg-umeclid 1 inh inhalation DAILY #28 ea 06/20/23 10/12/23 09/30/23 Rx 62.5 mcg-vilant 25 mcg inhalat.powder (Trelegy Ellipta) atorvastatin 80 mg tablet 80 mg PO BEDTIME@20 07/25/23 10/12/23 09/29/23 History duloxetine 60 mg capsule,delayed 60 mg PO DAILY@07/25/23 10/12/23 09/30/23 History release folic acid 1 mg tablet 1 mg PO DAILY@07/25/23 10/12/23 09/30/23 History omega-3 fatty acids 1,000 mg 1,000 mg PO BEDTIME 07/25/23 10/12/23 09/29/23 History capsule riboflavin (vitamin B2) 100 mg 100 mg PO DAILY@07/25/23 10/12/23 09/30/23 History tablet (Vitamin B-2) zinc acetate 50 mg (zinc) capsule 50 mg PO DAILY@07/25/23 10/12/23 09/30/23 History insulin lispro 100 unit/mL See Rx Instructions .Route 08/17/23 10/12/23 09/30/23 Rx subcutaneous solution (Humalog .COMPLEX #10 mL U-100 Insulin) furosemide 40 mg tablet (Lasix) 80 mg PO DAILY@09/24/23 10/12/23 09/30/23 History hydrocodone 5 mg-acetaminophen 325 1 tab PO TID PRN Pain 09/24/23 10/12/23 09/30/23 History mg tablet insulin glargine 100 unit/mL (3 15 unit SUBCUT BEDTIME 09/24/23 10/12/23 09/29/23 History mL) subcutaneous pen (Lantus Solostar U-100 Insulin) acetaminophen 325 mg tablet 650 mg PO Q6H PRN Pain 09/30/23 10/12/23 Unknown History amiodarone 200 mg tablet 200 mg PO DAILY@09/30/23 10/12/23 09/30/23 History bisacodyl 10 mg rectal suppository 10 mg AK DAILY PRN if no bm x3 days 09/30/23 10/12/23 Unknown History (Dulcolax (bisacodyl)) meclizine 25 mg tablet 25 mg PO TID PRN Nausea And 09/30/23 10/12/23 09/29/23 History Vomiting metolazone 2.5 mg tablet See Rx Instructions .Route .COMPLEX 09/30/23 10/12/23 09/29/23 History metoprolol tartrate 25 mg tablet 25 mg PO BID 09/30/23 10/12/23 Unknown History nystatin 100,000 unit/gram topical See Rx Instructions .Route .COMPLEX 09/30/23 10/12/23 Unknown History powder ([facility]) apixaban 2.5 mg tablet (Eliquis) 2.5 mg PO BID 10/12/23 10/12/23 Unknown History magnesium L-lactate 84 mg 84 mg PO DAILY@08 10/12/23 10/12/23 Unknown History tablet,extended release methotrexate sodium 2.5 mg tablet 15 mg PO Q7D 10/12/23 10/12/23 Unknown History pyridoxine (vitamin B6) 250 mg 500 mg PO DAILY@08 10/12/23 10/12/23 Unknown History tablet (Vitamin B-6) sodium chloride 0.9 % (flush) See Rx Instructions .Route .COMPLEX 10/12/23 10/12/23 Unknown History (Normal Saline Flush 0.9 % injection syringe) sodium chloride 0.9 % (flush) See Rx Instructions .Route .COMPLEX 10/12/23 10/12/23 Unknown History (Normal Saline Flush 0.9 % injection syringe) wound dressings (Triad Wound See Rx Instructions .Route .COMPLEX 10/12/23 10/12/23 Unknown History Dressing paste) Allergies Allergy/AdvReac Type Severity Reaction Status Date / Time adhesive tape Allergy rash Verified 09/30/23 15:39 cinnamon Allergy sinus Verified 09/30/23 15:39 codeine Allergy unknown Verified 09/30/23 15:39 cedar Allergy sinus Uncoded 09/24/23 15:08 pine Allergy sinus Uncoded 09/24/23 15:08 pork food Allergy ADR-Nausea Uncoded 09/24/23 15:08 Current Medications Generic Name Dose Route Start Last Admin Trade Name Freq PRN Reason Stop Dose Admin Albuterol/Ipratropium 3 ml 10/12/23 08:00 10/12/23 08:27 Ipratropium-Albuterol 3 Ml Neb INHALATION 3 ml Q6H.RESP JOCE Administration Aspirin 81 mg 10/12/23 03:51 10/12/23 04:52 Aspirin 81 Mg Ec Tablet PO 81 mg DAILY JOCE Administration norepinephrine 4 mg in 250 mls @ 0 mls/hr 10/12/23 01:45 02/16/24 08:55 Levophed IV 6 mcg/min .Q0M JOCE 22.5 mls/hr Titration Protocol Per Protocol Fentanyl 1,000 mcg in 100 mls @ 0 mls/hr 10/12/23 02:15 10/12/23 12:44 Sublimaze IV 50 mcg/hr .Q0M JOCE 5 mls/hr Titration Protocol Per Protocol Propofol 1,000 mg in 100 mls @ 0 mls/hr 10/12/23 04:00 10/12/23 12:46 Diprivan IV 10 mcg/kg/min .Q0M JOCE 6.2 mls/hr Titration Protocol Per Protocol Levofloxacin/Dextrose 750 mg in 150 mls @ 100 mls/hr 10/12/23 05:30 10/12/23 08:25 Levaquin-D5w IV Infused Q48H JOCE Infusion Pantoprazole Sodium 40 mg 10/12/23 04:00 10/12/23 04:52 Pantoprazole 40 Mg Sdv IVP 40 mg Q12H JOCE Administration PFSH Acute 2 PFSH: Medical History UTI (urinary tract infection) Major depressive disorder, recurrent episode, moderate with anxious distress Duodenal ulcer due to bacteria Psychiatric care Coronary artery disease Immunization counseling High risk medication use Chronic knee pain Chronic low back pain COVID-14 August 2020 Seronegative rheumatoid arthritis of both hands Intermittent atrial fibrillation Poorly controlled diabetes mellitus CHF exacerbation Narrow complex tachycardia Inflammatory arthritis Osteoarthritis of knees, bilateral Fibromyalgia Lung nodule Unstable angina Low back pain of over 3 months duration Urgency incontinence Left renal mass COPD (chronic obstructive pulmonary disease) Oxygen dependent, 2 L at baseline Anxiety and depression Hypothyroidism Liver cirrhosis Hyperlipidemia Hypertension Recurrent UTI Surgical History History of cholecystectomy History of thyroid surgery History of cardiac cath History of hysterectomy History of knee replacement Family History Other CAD (coronary artery disease) Cancer Denies family history of Anesthesia complication Bleeding disorder Social History Smoking and tobacco/nicotine status: former use of tobacco/nicotine Quit status (tobacco/nicotine): has quit using Year quit tobacco: 2005 Second hand smoke exposure: No Alcohol intake: never Substance/Drug Use: never Adopted: No Caregiver/support person: No Lives independently: No Household members: spouse Marital status: Current occupational status: retired Current gender identity: Female Vitals/I&O/Wt Last Vital Signs Temp 98.6 F 10/12/23 07:43 Pulse 91 10/12/23 11:45 Resp 16 10/12/23 11:11 BP 140/83 10/12/23 11:45 Pulse Ox 99 10/12/23 11:45 O2 Del Method Mechanical Ventilation 10/12/23 08:27 FiO2 28 10/12/23 11:11 10/11/23 10/12/23 10/12/23 22:59 06:59 14:59 Intake Total 171.065 / 171.065 347.295 / 347.295 Balance 171.065 / 171.065 347.295 / 347.295 Weight last 48 hrs Weight 103.328 kg Weight 103.328 kg Weight 103.328 kg Weight 158.757 kg Physical Exam 2 Const: COMMON NORMALS: alert HENMT: OTHER: oral ETT Neuro: SENSORIUM/ORIENTATION: Yes alert Urinary Catheter Management: Manzanares: Cath Placed During This Visit: yes Reason for Continuing Indwelling Catheter: Accurate Measurement of Urinary Output in Critically Ill Patients Urinary Catheter Date of Insertion: 10/12/23 Urinary Catheter Time of Insertion: 03:57 Data 10/12/23 00:33 10/12/23 00:33 Micro: Microbiology 10/12/23 00:44 Blood Culture - Preliminary Blood SPECIMEN COLLECTED 10/12/23 00:40 Blood Culture - Preliminary Blood SPECIMEN COLLECTED CXR: Radiologist's impression: Small right-sided pleural effusion. Opacities throughout both lungs with a perihilar predominance which can be seen the setting of pulmonary vascular congestion. Other data: seen via telemedicine with assistance of RN at bedside A&P Assessment and plan (1) End stage renal disease: Plan ESRD, volume overload, hyperkalemia. Recommend 3x weekly HD. HD completed today. Continue furosemide Consult Attestations 2 Medical Necessity Statement: see above Time Spent in Patient Care: 16 - 35 minutes Coding Level of Care Code Acute Code for [facility] Diagnoses End stage renal disease N18.6
[2023-10-12] MEDS: dexmedeTOMIDine 0.9 % NaCL 400 MCG/100 ML PREMIX 2.58000000000000007 MCG IV (14:42)
[2023-10-12] MEDS: norepinephrine 4 MG/250 ML BAG 11.25 MG IV (15:00)
[2023-10-12] MEDS: propofol 1,000 MG/100 ML INJ 6.20000000000000018 MG IV (17:07)
[2023-10-12 17:43] LABS: Partial Thromboplastin Time 185.8 SECONDS (23.9-36.7)
[2023-10-12 19:46] LABS: Partial Thromboplastin Time 117.6 SECONDS (23.9-36.7)
[2023-10-12] MEDS: dexmedeTOMIDine 0.9 % NaCL 400 MCG/100 ML PREMIX 18.0799999999999983 MCG IV (20:41)
[2023-10-13] VITALS (74 sets, daily range): BP systolic 75–145; BP diastolic 46–103; PULSE 83–142; RESP 12–112; TEMP 36.3–37.2; O2SAT 30–100; BMI 38.0
[2023-10-13] MEDS: fentaNYL 1,000 MCG/100 ML BAG 15 MCG IV ×2 (00:20→05:20)
[2023-10-13] MEDS: dexmedeTOMIDine 0.9 % NaCL 400 MCG/100 ML PREMIX 15.5 MCG IV (01:55)
[2023-10-13 02:34] LABS: Partial Thromboplastin Time 125.4 SECONDS (23.9-36.7)
[2023-10-13] MEDS: ipratropium-albuterol 3 mL Neb INHALATION ×4 (03:04→19:48)
[2023-10-13] MEDS: pantoprazole 40 mg SDV IVP ×2 (04:42→15:30)
[2023-10-13] MEDS: FUROsemide 10 mg/mL SDV 4mL 60 MG IVP ×2 (04:44→15:30)
[2023-10-13 04:48] LABS: ABG PCO2 34.7 mmHg (35-45); ABG PH Result 7.55 (7.35-7.45); Alveolar-Arterial Oxygen Gradi 10.5 mmHg (5-10); Arterial Blood Gas Hematocrit 28.7 % (37-47); Base Excess ABG 7.5 mmol/L (-2.0-2.0); Blood Gas Operator Identificat JB; Blood Gas Sample Site Brachial, right; Blood Gas Sample Type Arterial; Blood Gas Tidal Volume 0.45; Carboxyhemoglobin 1.3 %THgb (0.4-20.1); HCO3 ABG 30.3 mmol/L (22-26); HGB O2 Sat 94.7 % (95-100); Ionized Calcium Level - ABG 1.2 mmol/L (1.1-1.4); Methemoglobin 0.5 % (0.4-1.5); Oxygen Device VENT; Oxygen Saturation ABG 96.4; PO2 ABG 76.8 mmHg (80.0-100.0); PO2 FiO2 Ratio Arterial Blood 0; Potassium Level - ABG 3.2 mmol/L (3.5-5.0); Total Hemoglobin 9.4 g/dL (12-16)
[2023-10-13 05:18] LABS: Basophils % 0.5 %; Eosinophils # 0.1 10^3/uL (0.0-0.8); Eosinophils % 0.8 %; Hematocrit 29.6 % (36-47); Lymphocytes # 1.2 10^3/uL (0.8-4.8); Mean Corpuscular HGB Conc 31.4 g/dL (30-55); Mean Corpuscular Hemoglobin 29.2 pg (27-33); Mean Corpuscular Volume 92.8 fl (85-98); Mean Platelet Volume 9.3 fL (7.4-10.4); Monocytes # 0.6 10^3/uL (0.2-0.9); Monocytes % 9.2 %; Neutrophils # 4.53 10^3/uL (1.8-7.7); Nucleated Red Blood Cells % 0 %; Platelet Count 151 10^3/cmm (157-399); Red Blood Count 3.19 10^6/uL (3.85-5.65); Red Cell Distribution Width 17.3 % (12.1-15.1); White Blood Count 6.38 10^3/uL (3.29-11.43)
[2023-10-13] MEDS: propofol 1,000 MG/100 ML INJ 9.30000000000000071 MG IV (05:19)
[2023-10-13] MEDS: heparin drip 25,000 UNIT/500 ML PREMIX 16 UNIT IV (05:22)
[2023-10-13 05:39] LABS: Alanine Aminotransferase 19 U/L (0-33); Albumin Level 2.8 g/dL (3.5-5.2); Alkaline Phosphatase 96 U/L (35-105); Anion Gap 14.2 (5-19); Aspartate Amino Transferase 22 U/L (0-32); Blood Urea Nitrogen 24 mg/dL (8-23); Calcium 8.4 mg/dL (8.5-10.5); Carbon Dioxide 27 mmol/L (22-29); Chloride 97 mmol/L (98-107); Creatinine Clr Calc Pharmacy 38.7773; Globulin 2.9 g/dL (1.3-4.6); Glucose 155 mg/dL (65-115); Magnesium 1.5 mg/dL (1.7-2.3); Osmolality Calculated 287 mOsm/kg (285-295); Phosphorus 2.5 mg/dL (2.5-4.5); Potassium 3.2 mmol/L (3.5-5.1); Sodium 135 mmol/L (136-145); Total Bilirubin 0.4 mg/dL (0.15-1.2); Total Protein 5.7 g/dL (6.6-8.7)
--- NOTE | 2023-10-13 06:52 | P.PN_ITS ---
Subjective 2 Subjective: remains intubated, attempting to wean today Vitals/I&O/Wt Last Vital Signs Temp 98.3 F 10/12/23 21:00 Pulse 92 10/13/23 03:04 Resp 12 10/13/23 05:43 BP 118/91 10/13/23 01:00 Pulse Ox 30 L 10/13/23 05:43 O2 Del Method Mechanical Ventilation 10/13/23 03:04 FiO2 28 10/13/23 05:43 10/12/23 10/12/23 10/13/23 14:59 22:59 06:59 Intake Total 776.228 / 776.228 514.568 / 1290.796 475.808 / 1766.604 Output Total 1875 / 1875 300 / 2175 Balance -1098.772 / -1098.772 214.568 / -884.204 475.808 / -408.396 Weight last 48 hrs Weight 104 kg Weight 103.328 kg Weight 103.328 kg Weight 103.328 kg Weight 158.757 kg Physical Exam 2 Urinary Catheter Management: Manzanares: Cath Placed During This Visit: yes Reason for Continuing Indwelling Catheter: Accurate Measurement of Urinary Output in Critically Ill Patients Urinary Catheter Date of Insertion: 10/12/23 Urinary Catheter Time of Insertion: 03:57 Data 10/13/23 05:01 10/13/23 05:01 Micro: Microbiology 10/12/23 00:44 Blood Culture - Preliminary Blood NEGATIVE TO DATE 10/12/23 00:40 Blood Culture - Preliminary Blood NEGATIVE TO DATE Other data: seen via telemedicine with assistance of RN at bedside A&P Assessment and plan (1) End stage renal disease: Plan ESRD, volume overload, s/p HD yesterday. Oxygenating well on 28% FIO2. Recommend 3x weekly HD. Hypokalemia, replace orally Attestations 2 Medical Necessity Statement*: see above Time Spent in Patient Care: 16 - 35 minutes Coding Level of Care Code Acute Code for [facility] Diagnoses End stage renal disease N18.6
[2023-10-13] MEDS: aspirin 81 mg EC Tablet PO (08:46)
[2023-10-13 09:26] LABS: Partial Thromboplastin Time 92.4 SECONDS (23.9-36.7)
--- NOTE | 2023-10-13 10:10 | XRR_ITS ---
PROCEDURE INFORMATION: Exam: XR Chest Exam date and time: 10/13/2023 3:51 PM Age: 73 years old Clinical indication: Shortness of breath; Additional info: F/u TECHNIQUE: Imaging protocol: Radiologic exam of the chest. Views: 1 view. COMPARISON: CR XR chest 1V portable [id number] 10/12/2023 1:34 AM FINDINGS: Lungs: Bilateral lower lobe opacities are seen consistent with pleural effusions. No consolidation. Pleural spaces: Unremarkable. No pleural effusion. No pneumothorax. Heart/Mediastinum: Unremarkable. No cardiomegaly. Bones/joints: Unremarkable. A right side PICC line extends into the SVC. A large bore right central line extends to the caval atrial junction XR/XR chest 1V portable [id number] IMPRESSION: 1. Bilateral pleural effusions. 2. Right side PICC line extends to the SVC. 3. Large bore right central line extends to the caval atrial junction
[2023-10-13] MEDS: dexmedeTOMIDine 0.9 % NaCL 400 MCG/100 ML PREMIX 2.58000000000000007 MCG IV (11:49)
--- NOTE | 2023-10-13 13:21 | P.PN_ITS ---
Subjective 2 Subjective: Seen this morning. Patient resting comfortably but quite tachypneic when I am talking to her. at bedside. RSBI greater than 100 at this time. Patient is very anxious. at bedside. Vitals/I&O/Wt Last Vital Signs Temp 98.3 F 10/13/23 07:20 Pulse 112 H 10/13/23 08:20 Resp 15 10/13/23 12:57 BP 135/74 10/13/23 08:20 Pulse Ox 96 10/13/23 12:57 O2 Del Method Mechanical Ventilation 10/13/23 08:20 FiO2 28 10/13/23 12:57 10/12/23 10/13/23 10/13/23 22:59 06:59 14:59 Intake Total 514.568 / 1290.796 475.808 / 1766.604 254.617 / 254.617 Output Total 300 / 2175 Balance 214.568 / -884.204 475.808 / -408.396 254.617 / 254.617 Weight last 48 hrs Weight 103.504 kg Weight 103.504 kg Weight 104 kg Weight 103.328 kg Weight 103.328 kg Weight 103.328 kg Weight 158.757 kg Physical Exam 2 Narrative: Accompanied by her . Const: GENERAL APPEARANCE: patient mechanically ventilated HENMT: COMMON NORMALS: oropharynx normal Neck/C-Spine: COMMON NORMALS: no JVD Resp: AUSCULTATION: rales, rhonchi and diminished lung sounds Cardio: COMMON NORMALS: no JVD, regular rhythm, S1 normal heart sound present, S2 normal heart sound present and No murmurs present (Cardio) RHYTHM: regular rhythm HEART SOUNDS: S1 normal heart sound present and S2 normal heart sound present GI: COMMON NORMALS: Normal to inspection, nondistended, normoactive bowel sounds present, Soft to palpation and non-tender PALPATION: Yes Soft to palpation Extremity: COMMON NORMALS: no joint enlargement GENERAL: Yes edema (1+) Skin: COMMON NORMALS: no rashes or lesions noted GENERAL SKIN EXAM: no rashes or lesions noted Urinary Catheter Management: Manzanares: Cath Placed During This Visit: yes Reason for Continuing Indwelling Catheter: Accurate Measurement of Urinary Output in Critically Ill Patients Urinary Catheter Date of Insertion: 10/12/23 Urinary Catheter Time of Insertion: 03:57 Data 10/13/23 05:01 10/13/23 05:01 Micro: Microbiology 10/12/23 03:55 Urine Culture - Preliminary Urine,Clean Catch 10/12/23 00:44 Blood Culture - Preliminary Blood NEGATIVE TO DATE 10/12/23 00:40 Blood Culture - Preliminary Blood NEGATIVE TO DATE A&P Assessment and plan (1) Acute respiratory failure: Acute respiratory failure acute decompensated systolic CHF, underlying pulmonary hypertension, COPD, respiratory distress, requiring intubation, congestive changes, opacities on CT. Appears less likely pneumonia, afebrile, without leukocytosis, reviewed vitals, CBC, INR, PTT, ABG, CMP, procalcitonin, UA. Chest x-ray, EKG, troponin series. Reviewed ER note, discussed with ER physician. Does appear to have UTI, for now we will empirically cover for possibility of pneumonia as well. Likely should be able to hopefully de- escalate antibiotics. Discussed with her regarding decompensated congestive heart failure, possible NSTEMI with moderate but rising troponin trend. Reviewed with atrial fibrillation, RBBB. She does still produce urine but has been in renal failure and could not wean off dialysis. Will give Lasix IV 40 mg twice daily. At risk of electrolyte abnormality, reassess. However, also consulting nephrology for hemodialysis. She has a tunneled catheter in the right chest. Continue mechanical ventilatory support, and wean down as tolerating. Discussed with RT. Repeat ABG in the morning. (2) Congestive heart failure (CHF): As above. (3) NSTEMI (non-ST elevated myocardial infarction): Moderate but rising trend of troponin, but also in the setting of renal failure. Possible NSTEMI. Heparin drip has been started, aspirin. At risk of bleeding, reviewed hemoglobin, platelets. Follow-up CBC. Continue PPI IV twice daily. Monitor for bleeding. Assess TTE. At risk of arrhythmia, monitor on telemetry. (4) Renal failure: Appreciate nephrology consultation for dialysis. (5) UTI (urinary tract infection): Has had Manzanares catheter since last admission, catheter exchanged. UA sent, suggestive of UTI. Levaquin coverage for possible UTI, possible component of pneumonia. Plan CAD, HTN, COPD, breathing treatments. HLD, MDD, Sacral decubitus ulcer, wound care with home dressing Hypotension, difficulties with hypotension during last admission as well. Currently on low rate Levophed drip. Wean down as tolerating. Should be able to wean off better once able to wean down on sedation. Poor peripheral access: Has a right arm PICC line since last admission. PICC line site appears without erythema, swelling or drainage. 10/13/2023 #Vent dependent repiratory failure #End-stage renal disease on dialysis as an outpatient #NSTEMI #Acute hypercabic resp failure #Chronic hypoxic resp failure #Acute on chronic diasotlic HF #Hx of multiple admissions #Immunocompromised, on adalimumab, methrotrexate outpatient, #A-fib with RVR #Chronic anemia -Has been on dialysis twice a week outpatient. Presented to hospital with respiratory distress. states that I have not been taking of much fluid . Patient's initial ABG in ER was well compensated and patient was not hypercarbic nor hypoxic however she was in extreme respiratory distress with use of accessory muscles and abdominal breathing. For airway protection and impending respiratory failure she was intubated. Subsequently underwent dialysis. Nephrology has recommended to dialyze 3 times a week. Next dialysis session 10/14 and morning. ? Currently on fentanyl and propofol which have been turned off in an attempt to extubate the patient today. ? Patient very anxious. We will try use of Precedex. She is currently on FiO2 28%. ? Plan to extubate patient today. I have discussed with RT. We will extubate to BiPAP. ? There is a question of NSTEMI at admission. Most likely troponin elevation is secondary to demand ischemia. Heparin drip was started. However cardiology has seen patient has recommended a stress test at this point. Her troponin elevation is most likely secondary to demand ischemia. We will keep heparin drip going for her atrial fibrillation as we have held her Eliquis for now. ? Initially was in A-fib with RVR however is now rate controlled. ? Nephrology consulted. Appreciate recommendations ? Limited echo obtained. No gross wall motion abnormalities noted. ? Manzanares in place since last admission. Catheter was exchanged at admission. UA abnormal. Levaquin added for possible UTI empiric coverage. ? Patient currently on 2 mics of Levophed. We will attempt to wean off. ? Check labs in a.m. ? I did discuss with that patient is at high risk of reintubation and further deterioration given her comorbid conditions. Secondary to all of her chronic conditions she is also at high risk of deterioration including but not limited to [place] and . He understands the above. Patient to remain full code at this time. Full code Heparin drip, for atrial fibrillation, DVT prophylaxis at this time. Once patient is extubated we may start oral medications and put her back on oral Eliquis and will stop heparin drip at that time. Attestations 2 Medical Necessity Statement*: Vent dependent respiratory failure, ICU level care Critical Care Time: The high probability of a clinically significant, sudden or life threatening deterioration of the patient's [respiratory, cardiovascular] system(s) required my full and direct attention, intervention and personal management. The critical care time is as shown. This time is in addition to time spent performing any reported procedures but includes the following: [x] Data and vital sign review and interpretation [x] Patient assessment, examination and intervention [x] Documentation [x] Medication orders and management Critical Care Time (min): 45 Coding Level of Care Code Acute Code for [facility] Fwd Diagnoses Acute respiratory failure J96.00 Congestive heart failure (CHF) I50.9 NSTEMI (non-ST elevated myocardial infarction) I21.4 Renal failure N19 UTI (urinary tract infection) N39.0
[2023-10-13] MEDS: potassium chloride oral liq 20 mEq/15 mL UDC 40 MEQ PO (13:46)
[2023-10-13 15:55] LABS: Partial Thromboplastin Time 55.3 SECONDS (23.9-36.7)
[2023-10-13] MEDS: amiodarone 150 MG/100 ML PREMIX 400 MG IV (16:00)
--- NOTE | 2023-10-13 16:16 | PC.NURSE ---
wasted 35ml of fentanyl that was left in bag from drip with TAYO Lawler.
[2023-10-13] MEDS: norepinephrine 4 MG/250 ML BAG 7.5 MG IV (20:01)
[2023-10-14] VITALS (88 sets, daily range): BP systolic 69–154; BP diastolic 49–105; PULSE 79–146; RESP 14–28; TEMP 36.4–37.2; O2SAT 31–100
[2023-10-14] MEDS: ipratropium-albuterol 3 mL Neb INHALATION ×4 (02:55→19:23)
[2023-10-14] MEDS: pantoprazole 40 mg SDV IVP ×2 (04:19→16:30)
[2023-10-14] MEDS: FUROsemide 10 mg/mL SDV 4mL 60 MG IVP ×2 (04:20→16:30)
[2023-10-14] MEDS: acetaminophen 325 mg Tablet 650 MG PO ×2 (04:34→16:31)
[2023-10-14 05:06] LABS: Basophils % 0.5 %; Eosinophils # 0.1 10^3/uL (0.0-0.8); Eosinophils % 1.3 %; Hematocrit 28.2 % (36-47); Lymphocytes # 0.6 10^3/uL (0.8-4.8); Lymphocytes % 8.1 %; Mean Corpuscular HGB Conc 29.8 g/dL (30-55); Mean Corpuscular Hemoglobin 28.6 pg (27-33); Mean Corpuscular Volume 95.9 fl (85-98); Mean Platelet Volume 9.7 fL (7.4-10.4); Monocytes # 0.6 10^3/uL (0.2-0.9); Monocytes % 7.7 %; Neutrophils # 6.15 10^3/uL (1.8-7.7); Neutrophils % 81.9 %; Nucleated Red Blood Cells % 0 %; Platelet Count 154 10^3/cmm (157-399); Red Blood Count 2.94 10^6/uL (3.85-5.65); Red Cell Distribution Width 17.4 % (12.1-15.1); White Blood Count 7.52 10^3/uL (3.29-11.43)
[2023-10-14] MEDS: levofloxacin-dextrose 5 % 750 MG/150 ML PREMIX 100 MG IV (05:16)
[2023-10-14 05:22] LABS: Partial Thromboplastin Time 79.9 SECONDS (23.9-36.7)
[2023-10-14 05:23] LABS: Alanine Aminotransferase 18 U/L (0-33); Alkaline Phosphatase 95 U/L (35-105); Aspartate Amino Transferase 25 U/L (0-32); Blood Urea Nitrogen 27 mg/dL (8-23); Calcium 8.4 mg/dL (8.5-10.5); Carbon Dioxide 28 mmol/L (22-29); Chloride 95 mmol/L (98-107); Creatinine Clr Calc Pharmacy 29.0069; Globulin 2.8 g/dL (1.3-4.6); Glucose 141 mg/dL (65-115); Magnesium 1.5 mg/dL (1.7-2.3); Osmolality Calculated 281 mOsm/kg (285-295); Sodium 132 mmol/L (136-145); Total Bilirubin 0.4 mg/dL (0.15-1.2); Total Protein 5.8 g/dL (6.6-8.7)
[2023-10-14 05:30] LABS: Anion Gap 12.9 (5-19); Potassium 3.9 mmol/L (3.5-5.1)
[2023-10-14] MEDS: dexmedeTOMIDine 0.9 % NaCL 400 MCG/100 ML PREMIX 5.16999999999999993 MCG IV (07:15)
[2023-10-14 07:33] LABS: Glucose Point of Care 168 mg/dL (70-110)
[2023-10-14] MEDS: aspirin 81 mg EC Tablet PO (08:47)
[2023-10-14 09:51] LABS: Partial Thromboplastin Time 53.8 SECONDS (23.9-36.7)
[2023-10-14] MEDS: metoprolol tartrate 25 mg Tablet PO ×2 (10:07→20:58)
[2023-10-14] MEDS: amiodarone 200 mg Tablet PO (10:07)
[2023-10-14] MEDS: magnesium sulfate premix 2 GM/50 ML PIGGYBACK IV (10:15)
[2023-10-14 10:53] LABS: Glucose Point of Care 182 mg/dL (70-110)
[2023-10-14] MEDS: ondansetron 2 mg/ML SDV 2 mL 4 MG IVP (12:19)
[2023-10-14] MEDS: heparin, porcine 1,000 unit/mL INJ 10 mL 1000 UNIT IV (13:10)
--- NOTE | 2023-10-14 13:57 | P.PN_ITS ---
Subjective 2 Subjective: Seen this morning. She is currently on BiPAP. at bedside. She says she feels well. Still on Precedex drip and 2 of Levophed. Vitals/I&O/Wt Last Vital Signs Temp 99.0 F 10/14/23 13:22 Pulse 116 H 10/14/23 13:22 Resp 25 H 10/14/23 13:22 BP 111/79 10/14/23 13:22 Pulse Ox 98 10/14/23 12:00 O2 Del Method BiPAP 10/14/23 08:09 FiO2 30 10/14/23 10:24 10/13/23 10/14/23 10/14/23 22:59 06:59 14:59 Intake Total 404.207 / 658.824 580.358 / 1239.182 386.231 / 386.231 Output Total 250 / 250 150 / 400 350 / 350 Balance 154.207 / 408.824 430.358 / 839.182 36.231 / 36.231 Weight last 48 hrs Weight 107.456 kg Weight 107.456 kg Weight 103.504 kg Weight 103.504 kg Weight 104 kg Physical Exam 2 Narrative: Accompanied by her . Alert oriented x 3., Currently on BiPAP. Const: GENERAL APPEARANCE: cooperative, comfortable and ill appearing HENMT: COMMON NORMALS: oropharynx normal Neck/C-Spine: COMMON NORMALS: no JVD Resp: COMMON NORMALS: clear to auscultation bilaterally AUSCULTATION: clear to auscultation bilaterally, no crackles, no rhonchi, no wheezes and diminished lung sounds Cardio: COMMON NORMALS: no JVD, regular rhythm, S1 normal heart sound present, S2 normal heart sound present and No murmurs present (Cardio) RHYTHM: regular rhythm HEART SOUNDS: S1 normal heart sound present and S2 normal heart sound present GI: COMMON NORMALS: Normal to inspection, nondistended, normoactive bowel sounds present, Soft to palpation and non-tender PALPATION: Yes Soft to palpation Extremity: COMMON NORMALS: no joint enlargement GENERAL: Yes edema (1+) Skin: COMMON NORMALS: no rashes or lesions noted GENERAL SKIN EXAM: no rashes or lesions noted Urinary Catheter Management: Manzanares: Cath Placed During This Visit: yes Reason for Continuing Indwelling Catheter: Accurate Measurement of Urinary Output in Critically Ill Patients Urinary Catheter Date of Insertion: 10/12/23 Urinary Catheter Time of Insertion: 03:57 Data 10/14/23 03:25 10/14/23 03:25 Micro: Microbiology 10/12/23 03:55 Urine Culture - Preliminary Urine,Clean Catch Yeast species A&P Assessment and plan (1) Acute respiratory failure: Acute respiratory failure acute decompensated systolic CHF, underlying pulmonary hypertension, COPD, respiratory distress, requiring intubation, congestive changes, opacities on CT. Appears less likely pneumonia, afebrile, without leukocytosis, reviewed vitals, CBC, INR, PTT, ABG, CMP, procalcitonin, UA. Chest x-ray, EKG, troponin series. Reviewed ER note, discussed with ER physician. Does appear to have UTI, for now we will empirically cover for possibility of pneumonia as well. Likely should be able to hopefully de- escalate antibiotics. Discussed with her regarding decompensated congestive heart failure, possible NSTEMI with moderate but rising troponin trend. Reviewed with atrial fibrillation, RBBB. She does still produce urine but has been in renal failure and could not wean off dialysis. Will give Lasix IV 40 mg twice daily. At risk of electrolyte abnormality, reassess. However, also consulting nephrology for hemodialysis. She has a tunneled catheter in the right chest. Continue mechanical ventilatory support, and wean down as tolerating. Discussed with RT. Repeat ABG in the morning. (2) Congestive heart failure (CHF): As above. (3) NSTEMI (non-ST elevated myocardial infarction): Moderate but rising trend of troponin, but also in the setting of renal failure. Possible NSTEMI. Heparin drip has been started, aspirin. At risk of bleeding, reviewed hemoglobin, platelets. Follow-up CBC. Continue PPI IV twice daily. Monitor for bleeding. Assess TTE. At risk of arrhythmia, monitor on telemetry. (4) Renal failure: Appreciate nephrology consultation for dialysis. (5) UTI (urinary tract infection): Has had Manzanares catheter since last admission, catheter exchanged. UA sent, suggestive of UTI. Levaquin coverage for possible UTI, possible component of pneumonia. Plan CAD, HTN, COPD, breathing treatments. HLD, MDD, Sacral decubitus ulcer, wound care with home dressing Hypotension, difficulties with hypotension during last admission as well. Currently on low rate Levophed drip. Wean down as tolerating. Should be able to wean off better once able to wean down on sedation. Poor peripheral access: Has a right arm PICC line since last admission. PICC line site appears without erythema, swelling or drainage. 10/14/2023 #Vent dependent repiratory failure?resolved #End-stage renal disease on dialysis as an outpatient #NSTEMI #Acute hypercabic resp failure #Chronic hypoxic resp failure #Acute on chronic diasotlic HF #Hx of multiple admissions #Immunocompromised, on adalimumab, methrotrexate outpatient, #A-fib with RVR #Chronic anemia -Has been on dialysis twice a week outpatient. Presented to hospital with respiratory distress. states that I have not been taking of much fluid . Patient's initial ABG in ER was well compensated and patient was not hypercarbic nor hypoxic however she was in extreme respiratory distress with use of accessory muscles and abdominal breathing. For airway protection and impending respiratory failure she was intubated. Subsequently underwent dialysis. Nephrology has recommended to dialyze 3 times a week. Next dialysis session 10/14 and morning. ? Currently on fentanyl and propofol which have been turned off in an attempt to extubate the patient today. ? Patient very anxious. We will try use of Precedex. She is currently on FiO2 28%. ? Plan to extubate patient today. I have discussed with RT. We will extubate to BiPAP. ? There is a question of NSTEMI at admission. Most likely troponin elevation is secondary to demand ischemia. Heparin drip was started. However cardiology has seen patient has recommended a stress test at this point. Her troponin elevation is most likely secondary to demand ischemia. We will keep heparin drip going for her atrial fibrillation as we have held her Eliquis for now. ? Initially was in A-fib with RVR however is now rate controlled. ? Nephrology consulted. Appreciate recommendations ? Limited echo obtained. No gross wall motion abnormalities noted. ? Manzanares in place since last admission. Catheter was exchanged at admission. UA abnormal. Levaquin added for possible UTI empiric coverage. ? Patient currently on 2 mics of Levophed. We will attempt to wean off. ? Check labs in a.m. ? I did discuss with that patient is at high risk of reintubation and further deterioration given her comorbid conditions. Secondary to all of her chronic conditions she is also at high risk of deterioration including but not limited to [place] and . He understands the above. Patient to remain full code at this time. 10/14 -Plan for dialysis today ? Discontinue heparin drip ? Restart Eliquis 2.5 twice daily ? Still in atrial fibrillation ? Stop amiodarone drip ? Restart home amiodarone 200 daily ? Restart metoprolol 25 twice daily uptitrate as needed as long as blood pressure allows. Full code DVT prophylaxis: Neil Attestations 2 Medical Necessity Statement*: Continue to hospitalize patient. Diagnoses Acute respiratory failure J96.00 Congestive heart failure (CHF) I50.9 NSTEMI (non-ST elevated myocardial infarction) I21.4 Renal failure N19 UTI (urinary tract infection) N39.0
--- NOTE | 2023-10-14 15:56 | P.PN_ITS ---
Subjective 2 Subjective: getting HD Medications: Reviewed: Yes Vitals/I&O/Wt Last Vital Signs Temp 99.0 F 10/14/23 13:22 Pulse 105 H 10/14/23 14:30 Resp 23 H 10/14/23 14:20 BP 111/79 10/14/23 13:22 Pulse Ox 98 10/14/23 14:28 O2 Del Method BiPAP 10/14/23 14:20 FiO2 30 10/14/23 14:28 10/14/23 10/14/23 10/14/23 06:59 14:59 22:59 Intake Total 580.358 / 1239.182 386.231 / 386.231 Output Total 150 / 400 350 / 350 Balance 430.358 / 839.182 36.231 / 36.231 Weight last 48 hrs Weight 107.456 kg Weight 107.456 kg Weight 103.504 kg Weight 103.504 kg Physical Exam 2 Narrative: awake , alert in distress Urinary Catheter Management: Manzanares: Cath Placed During This Visit: yes Reason for Continuing Indwelling Catheter: Accurate Measurement of Urinary Output in Critically Ill Patients Urinary Catheter Date of Insertion: 10/12/23 Urinary Catheter Time of Insertion: 03:57 Data 10/14/23 03:25 10/14/23 03:25 Micro: Microbiology 10/12/23 03:55 Urine Culture - Preliminary Urine,Clean Catch Yeast species A&P Assessment and plan (1) End stage renal disease: Plan 1. ESRD, volume overload, s/p HD sunday , HD again today . Oxygenating well , on 3L NC Recommend 3x weekly HD. 2. Hypokalemia, replace orally. 3. Anemia , will order CARY 4. Acute on chronic resp failure Attestations 2 Medical Necessity Statement*: per nano Coding Level of Care Code Acute Code for [facility] Fwd Diagnoses End stage renal disease N18.6
--- NOTE | 2023-10-14 16:37 | PC.HD ---
Post dialysis heparin orders were acknowledged and discontinued. salvage clerk instilled 2000 units and 2100 units of heparin into patient's arterial and venous catheter ports, respectively per manager field investigations's order and post-dialysis protocol.
[2023-10-14 17:04] LABS: Glucose Point of Care 147 mg/dL (70-110)
[2023-10-14] MEDS: lanolin oint 7 gm 1 APPLIC TOPICAL (17:41)
[2023-10-14] MEDS: apixaban 5 mg Tablet 2.5 MG PO (20:57)
[2023-10-15] VITALS (55 sets, daily range): BP systolic 84–146; BP diastolic 42–114; PULSE 83–114; RESP 15–33; TEMP 37.1–37.7; O2SAT 85–100
[2023-10-15] MEDS: acetaminophen 325 mg Tablet 650 MG PO ×3 (00:56→20:37)
[2023-10-15] MEDS: ipratropium-albuterol 3 mL Neb INHALATION ×2 (03:06→08:30)
[2023-10-15] MEDS: FUROsemide 10 mg/mL SDV 4mL 60 MG IVP ×2 (03:20→17:01)
[2023-10-15] MEDS: pantoprazole 40 mg SDV IVP ×2 (03:20→17:02)
[2023-10-15 05:50] LABS: Basophils % 0.4 %; Eosinophils # 0.1 10^3/uL (0.0-0.8); Eosinophils % 1.4 %; Hematocrit 26.4 % (36-47); Lymphocytes # 0.4 10^3/uL (0.8-4.8); Lymphocytes % 8.6 %; Mean Corpuscular HGB Conc 29.2 g/dL (30-55); Mean Corpuscular Hemoglobin 28.3 pg (27-33); Mean Corpuscular Volume 97.1 fl (85-98); Mean Platelet Volume 9.8 fL (7.4-10.4); Monocytes # 0.4 10^3/uL (0.2-0.9); Monocytes % 8.2 %; Neutrophils # 4.03 10^3/uL (1.8-7.7); Nucleated Red Blood Cells % 0 %; Platelet Count 121 10^3/cmm (157-399); Red Blood Count 2.72 10^6/uL (3.85-5.65); Red Cell Distribution Width 17.1 % (12.1-15.1); White Blood Count 4.98 10^3/uL (3.29-11.43)
[2023-10-15 06:07] LABS: Alanine Aminotransferase 15 U/L (0-33); Albumin Level 2.7 g/dL (3.5-5.2); Alkaline Phosphatase 93 U/L (35-105); Anion Gap 12.1 (5-19); Aspartate Amino Transferase 18 U/L (0-32); Blood Urea Nitrogen 17 mg/dL (8-23); Calcium 8.4 mg/dL (8.5-10.5); Carbon Dioxide 29 mmol/L (22-29); Chloride 100 mmol/L (98-107); Creatinine Clr Calc Pharmacy 36.6031; Globulin 2.9 g/dL (1.3-4.6); Glucose 133 mg/dL (65-115); Magnesium 1.6 mg/dL (1.7-2.3); Osmolality Calculated 287 mOsm/kg (285-295); Phosphorus 3.2 mg/dL (2.5-4.5); Potassium 4.1 mmol/L (3.5-5.1); Sodium 137 mmol/L (136-145); Total Bilirubin 0.2 mg/dL (0.15-1.2); Total Protein 5.6 g/dL (6.6-8.7)
[2023-10-15] MEDS: amiodarone 200 mg Tablet PO ×2 (08:47→17:02)
[2023-10-15] MEDS: aspirin 81 mg EC Tablet PO (08:47)
[2023-10-15] MEDS: metoprolol tartrate 25 mg Tablet PO (08:47)
[2023-10-15] MEDS: apixaban 5 mg Tablet 2.5 MG PO ×2 (08:53→20:15)
--- NOTE | 2023-10-15 12:26 | PC.SOCIAL ---
IMM Update pg 2 of IMM updated and reviewed w/ patient. Copy provided and copy dated, initialed and placed in chart.
[2023-10-15] MEDS: metoprolol tartrate 1 mg/1 mL SDV 5 mL 5 MG IVP (12:40)
[2023-10-15] MEDS: magnesium sulfate premix 1 GM/100 ML PIGGYBACK IV (12:41)
[2023-10-15] MEDS: fluconazole premix 200 MG/100 ML PREMIX 100 MG IV (12:41)
[2023-10-15 13:02] LABS: Troponin T (5th) Once 166 ng/L (0-10)
[2023-10-15] MEDS: HYDROcodone-acetaminophen 5-325 mg Tablet 1 TAB PO (13:10)
[2023-10-15] MEDS: levalbuterol 0.63 mg/3 mL Neb 0.630000000000000004 MG INHALATION ×2 (13:50→19:31)
[2023-10-15] MEDS: ipratropium 0.5 mg/2.5 mL Neb INHALATION ×2 (13:51→19:31)
--- NOTE | 2023-10-15 14:02 | P.PN_ITS ---
Subjective 2 Subjective: On 3 L O2 by nasal cannula, no other complaints Medications: Reviewed: Yes Vitals/I&O/Wt Last Vital Signs Temp 98.7 F 10/15/23 12:00 Pulse 97 10/15/23 13:54 Resp 16 10/15/23 13:53 BP 124/86 10/15/23 12:00 Pulse Ox 95 10/15/23 13:53 O2 Del Method Nasal Cannula 10/15/23 13:53 O2 Flow Rate 3 10/15/23 13:53 FiO2 30 10/15/23 03:07 10/14/23 10/15/23 10/15/23 22:59 06:59 14:59 Intake Total 484.098 / 870.329 120 / 120 Output Total 2925 / 3275 200 / 3475 Balance -2440.902 / -2404.671 -200 / -2604.671 120 / 120 Weight last 48 hrs Weight 105.857 kg Weight 105.3 kg Weight 107.456 kg Weight 107.456 kg Physical Exam 2 Narrative: Awake alert, no distress Urinary Catheter Management: Manzanares: Cath Placed During This Visit: yes Reason for Continuing Indwelling Catheter: Accurate Measurement of Urinary Output in Critically Ill Patients Urinary Catheter Date of Insertion: 10/12/23 Urinary Catheter Time of Insertion: 03:57 Data 10/15/23 05:26 10/15/23 05:26 Micro: Microbiology 10/12/23 03:55 Urine Culture - Preliminary Urine,Clean Catch Yeast species A&P Assessment and plan (1) End stage renal disease: Plan 1. ESRD, volume overload, s/p HD Sunday. Oxygenating well , on 3L NC , next HD tomorrow Recommend 3x weekly HD. 2. Hypokalemia, replace orally. 3. Anemia , will order CARY 4. Acute on chronic resp failure , recurrent admissions for volume overload, unable to do aggressive UF due to blood pressures being low while on HD Attestations 2 Medical Necessity Statement*: Per medicine team Coding Level of Care Code Acute Code for [facility] Fwd Diagnoses End stage renal disease N18.6
--- NOTE | 2023-10-15 17:06 | PM.PN ---
Subjective Subjective: Patient is extubated now. Says occasionally feels chest pressure like elephant sitting on chest. However is not frequent. On dialysis Vitals/I&O/Wt Last Vital Signs Temp 98.7 F 10/15/23 12:00 Pulse 97 10/15/23 13:54 Resp 16 10/15/23 13:53 BP 124/86 10/15/23 12:00 Pulse Ox 95 10/15/23 13:53 O2 Del Method Nasal Cannula 10/15/23 13:53 O2 Flow Rate 3 10/15/23 13:53 FiO2 30 10/15/23 03:07 10/15/23 10/15/23 10/15/23 06:59 14:59 22:59 Intake Total 560 / 560 Output Total 200 / 3475 Balance -200 / -2604.671 560 / 560 Weight last 48 hrs Weight 233 lb 6 oz Weight 232 lb 2.348 oz Weight 236 lb 14.4 oz Weight 236 lb 14.4 oz Physical Exam Narrative: GENERAL: Patient is alert NECK: No jugular vein distension. [] HEENT: No cyanosis. No icterus. No pallor. [] HEART: Irregularly irregular LUNGS: Diminished air entry CENTRAL NERVOUS SYSTEM: Grossly nonfocal. [] EXTREMITIES: Lower extremities with 1+ edema bilaterally Urinary Catheter Management: Manzanares: Cath Placed During This Visit: yes Reason for Continuing Indwelling Catheter: Accurate Measurement of Urinary Output in Critically Ill Patients Urinary Catheter Date of Insertion: 10/12/23 Urinary Catheter Time of Insertion: 03:57 Data 10/17/23 03:59 10/17/23 03:59 A&P Assessment and plan (1) Acute respiratory failure: (2) Congestive heart failure (CHF): (3) NSTEMI (non-ST elevated myocardial infarction): (4) Renal failure: (5) UTI (urinary tract infection): (6) Atrial fibrillation with RVR: Plan Patient is now extubated. Plan for hemodialysis tomorrow and possible stress test the day after. Based on results, will give further recommendations Can obtain limited echocardiogram Thank you for involving us with care of this patient. Please call with questions. Attestations Medical Necessity Statement*: Care expected to cross 2 midnights. Coding Level of Care Code Acute Code for [facility] Diagnoses Acute respiratory failure J96.00 Congestive heart failure (CHF) I50.9 NSTEMI (non-ST elevated myocardial infarction) I21.4 Renal failure N19 UTI (urinary tract infection) N39.0 Atrial fibrillation with RVR I48.91
--- NOTE | 2023-10-15 17:11 | P.PN_ITS ---
Subjective 2 Subjective: Hospital course, labs appreciated. Patient denies any nausea, vomiting, headache. States her breathing is better. Complaining of on and off central chest pains. Denies any nausea, vomiting, headache. Currently on 3 L of oxygen supplementation Vitals/I&O/Wt Last Vital Signs Temp 98.7 F 10/15/23 12:00 Pulse 97 10/15/23 13:54 Resp 16 10/15/23 13:53 BP 124/86 10/15/23 12:00 Pulse Ox 95 10/15/23 13:53 O2 Del Method Nasal Cannula 10/15/23 13:53 O2 Flow Rate 3 10/15/23 13:53 FiO2 30 10/15/23 03:07 10/15/23 10/15/23 10/15/23 06:59 14:59 22:59 Intake Total 560 / 560 Output Total 200 / 3475 Balance -200 / -2604.671 560 / 560 Weight last 48 hrs Weight 105.857 kg Weight 105.3 kg Weight 107.456 kg Weight 107.456 kg Physical Exam 2 Const: COMMON NORMALS: patient oriented x3 and alert GENERAL APPEARANCE: c ooperative, comfortable, ill appearing and patient mechanically ventilated O RIENTATION/CONSCIOUSNESS: Yes awake HENMT: COMMON NORMALS: oropharynx normal Neck/C-Spine: COMMON NORMALS: no JVD Resp: COMMON NORMALS: clear to auscultation bilaterally AUSCULTATION: clear to auscultation bilaterally, no crackles, rales, no rhonchi, no wheezes and diminished lung sounds Cardio: COMMON NORMALS: no JVD, regular rhythm, S1 normal heart sound present, S2 normal heart sound present and No murmurs present (Cardio) RHYTHM: regular rhythm HEART SOUNDS: S1 normal heart sound present and S2 normal heart sound present GI: COMMON NORMALS: Normal to inspection, nondistended, normoactive bowel sounds present, Soft to palpation and non-tender PALPATION: Yes Soft to palpation Extremity: COMMON NORMALS: no joint enlargement GENERAL: Yes edema (1+) Neuro: COMMON NORMALS: patient oriented x3 and moves all extremities S ENSORIUM/ORIENTATION: Yes alert Skin: COMMON NORMALS: no rashes or lesions noted GENERAL SKIN EXAM: no rashes or lesions noted Urinary Catheter Management: Manzanares: Cath Placed During This Visit: yes Reason for Continuing Indwelling Catheter: Accurate Measurement of Urinary Output in Critically Ill Patients Urinary Catheter Date of Insertion: 10/12/23 Urinary Catheter Time of Insertion: 03:57 Data 10/15/23 05:26 10/15/23 05:26 A&P Assessment and plan (1) Acute respiratory failure: Acute respiratory failure acute decompensated systolic CHF, underlying pulmonary hypertension, COPD, respiratory distress, requiring intubation, congestive changes, opacities on CT. Extubated on . Oxygen supplementation keeping saturation over 88%. Continue with IV diuretics for congestive heart failure with 60 mg twice daily. Dialysis as per outpatient session and nephrology. Pulmicort twice daily, ipratropium, Xopenex every 6 hourly. Hold off on any steroids for now. Out of bed to chair. Incentive spirometry. (2) Congestive heart failure (CHF): As above. (3) NSTEMI (non-ST elevated myocardial infarction): Appreciate cardiology recommendations. Plan for Lexiscan stress test day after tomorrow. Plan for dialysis tomorrow to get patient more euvolemic. Continue with aspirin 81 mg daily, atorvastatin. Appreciate recent A1c and lipid panel. Heparin drip switched to Eliquis with the last 24 hours. (4) Renal failure: Appreciate nephrology consultation for dialysis. (5) UTI (urinary tract infection): Has had Manzanares catheter since last admission, catheter exchanged. UA sent, suggestive of UTI. Levaquin coverage for possible UTI, possible component of pneumonia. Plan Atrial fibrillation: Heart rate better controlled. Increase amiodarone to 200 mg twice daily. Increasing metoprolol to 50 mg twice daily to match home dose. Eliquis at 2.5 mg twice daily for stroke prevention. HTN: Goal blood pressure less than 140/90 mmHg with mean over 65. Continue with metoprolol 50 mg twice daily at home dose. Restart home midodrine 5 mg 3 times daily as needed. COPD, breathing treatments. HLD, MDD, Sacral decubitus ulcer, wound care with home dressing Hypotension, difficulties with hypotension during last admission as well. Currently on low rate Levophed drip. Wean down as tolerating. Should be able to wean off better once able to wean down on sedation. Poor peripheral access: Has a right arm PICC line since last admission. PICC line site appears without erythema, swelling or drainage. Full code Protonix for PUD prophylaxis Eliquis for DVT prophylaxis Attestations 2 Medical Necessity Statement*: Requires further hospitalization for management of respiratory failure in setting of congestive heart failure, non-ST elevation [place] in a patient was admitted with atrial fibrillation with rapid ventricular response Diagnoses Acute respiratory failure J96.00 Congestive heart failure (CHF) I50.9 NSTEMI (non-ST elevated myocardial infarction) I21.4 Renal failure N19 UTI (urinary tract infection) N39.0
[2023-10-15] MEDS: budesonide 0.5 mg/2 mL Neb INHALATION (19:31)
[2023-10-15] MEDS: metoprolol tartrate 25 mg Tablet 50 MG PO (20:15)
[2023-10-15] MEDS: atorvastatin 40 mg Tablet PO (20:15)
[2023-10-16] VITALS (59 sets, daily range): BP systolic 88–131; BP diastolic 29–93; PULSE 71–105; RESP 14–26; TEMP 36.5–37.1; O2SAT 80–100
[2023-10-16] MEDS: ipratropium 0.5 mg/2.5 mL Neb INHALATION ×4 (02:19→19:58)
[2023-10-16] MEDS: levalbuterol 0.63 mg/3 mL Neb 0.630000000000000004 MG INHALATION ×4 (02:19→19:58)
[2023-10-16] MEDS: FUROsemide 10 mg/mL SDV 4mL 60 MG IVP ×2 (03:21→15:09)
[2023-10-16] MEDS: pantoprazole 40 mg SDV IVP ×2 (03:21→15:09)
--- NOTE | 2023-10-16 04:01 | PC.NURSE ---
Patient's double lumen PICC line in right upper arm resistant against saline flush in both lumens. With saline flush, one lumen became patent while one lumen still resistant. Dr. Marie was contacted and verbal order for a 500 unit heparin flush ONCE was given to maintain patency in usable lumen .
[2023-10-16] MEDS: levofloxacin-dextrose 5 % 750 MG/150 ML PREMIX 100 MG IV (04:45)
[2023-10-16 05:20] LABS: Basophils % 0.6 %; Eosinophils # 0.1 10^3/uL (0.0-0.8); Eosinophils % 2.3 %; Hematocrit 28.4 % (36-47); Lymphocytes # 0.7 10^3/uL (0.8-4.8); Mean Corpuscular HGB Conc 29.2 g/dL (30-55); Mean Corpuscular Volume 99.3 fl (85-98); Mean Platelet Volume 9.7 fL (7.4-10.4); Monocytes # 0.5 10^3/uL (0.2-0.9); Monocytes % 8.9 %; Neutrophils # 3.81 10^3/uL (1.8-7.7); Neutrophils % 73.8 %; Nucleated Red Blood Cells % 0 %; Platelet Count 122 10^3/cmm (157-399); Red Blood Count 2.86 10^6/uL (3.85-5.65); White Blood Count 5.16 10^3/uL (3.29-11.43)
[2023-10-16 05:48] LABS: Alanine Aminotransferase 14 U/L (0-33); Albumin Level 2.8 g/dL (3.5-5.2); Alkaline Phosphatase 93 U/L (35-105); Aspartate Amino Transferase 15 U/L (0-32); Blood Urea Nitrogen 25 mg/dL (8-23); Calcium 8.5 mg/dL (8.5-10.5); Carbon Dioxide 28 mmol/L (22-29); Chloride 100 mmol/L (98-107); Creatinine Clr Calc Pharmacy 32.6311; Glucose 127 mg/dL (65-115); Osmolality Calculated 290 mOsm/kg (285-295); Sodium 137 mmol/L (136-145); Total Bilirubin 0.2 mg/dL (0.15-1.2); Total Protein 5.8 g/dL (6.6-8.7)
[2023-10-16] MEDS: cyanocobalamin 1,000 mcg Tablet 500 MCG PO (06:09)
[2023-10-16] MEDS: folic acid 1 mg Tablet PO (06:09)
[2023-10-16] MEDS: levothyroxine 150 mcg Tablet PO (06:09)
[2023-10-16] MEDS: duloxetine 60 mg Capsule PO (06:09)
[2023-10-16] MEDS: acetaminophen 325 mg Tablet 650 MG PO ×2 (06:24→15:08)
[2023-10-16] MEDS: budesonide 0.5 mg/2 mL Neb INHALATION ×2 (07:44→19:58)
[2023-10-16] MEDS: aspirin 81 mg EC Tablet PO (08:27)
[2023-10-16] MEDS: metoprolol tartrate 25 mg Tablet 50 MG PO ×2 (08:27→21:11)
[2023-10-16] MEDS: amiodarone 200 mg Tablet PO ×2 (08:27→17:31)
[2023-10-16] MEDS: apixaban 5 mg Tablet 2.5 MG PO ×2 (08:28→21:10)
[2023-10-16] MEDS: albumin 12.5 GM/50 ML VIAL IV (08:42)
[2023-10-16] MEDS: midodrine 5 mg TABLET PO (08:43)
[2023-10-16] MEDS: heparin, porcine 1,000 unit/mL INJ 10 mL 1000 UNIT IV (09:00)
--- NOTE | 2023-10-16 10:02 | P.PN_ITS ---
Subjective 2 Subjective: denies any complaints Medications: Reviewed: Yes Vitals/I&O/Wt Last Vital Signs Temp 97.9 F 10/16/23 09:12 Pulse 96 10/16/23 09:12 Resp 17 10/16/23 09:12 BP 95/63 10/16/23 09:12 Pulse Ox 98 10/16/23 08:30 O2 Del Method Nasal Cannula 10/16/23 07:45 O2 Flow Rate 3 10/16/23 07:45 FiO2 30 10/16/23 02:22 10/15/23 10/16/23 10/16/23 22:59 06:59 14:59 Intake Total 240 / 800 150 / 950 50 / 50 Output Total 650 / 650 700 / 1350 700 / 700 Balance -410 / 150 -550 / -400 -650 / -650 Weight last 48 hrs Weight 105.375 kg Weight 105.857 kg Weight 105.3 kg Physical Exam 2 Narrative: Awake alert, no distress Urinary Catheter Management: Manzanares: Cath Placed During This Visit: yes Reason for Continuing Indwelling Catheter: Accurate Measurement of Urinary Output in Critically Ill Patients Urinary Catheter Date of Insertion: 10/12/23 Urinary Catheter Time of Insertion: 03:57 Data 10/16/23 04:43 10/16/23 04:43 A&P Assessment and plan (1) End stage renal disease: Plan 1. ESRD, volume overload, s/p HD Sunday. Oxygenating well , on 3L NC , next HD today Recommend 3x weekly HD. 2. Hypokalemia, replace orally. 3. Anemia , will order CARY with hD 4. Acute on chronic resp failure , recurrent admissions for volume overload, unable to do aggressive UF due to blood pressures being low while on HD Attestations 2 Medical Necessity Statement*: per nano Coding Level of Care Code Acute Code for Chg Fwd Diagnoses End stage renal disease N18.6
--- NOTE | 2023-10-16 11:29 | ECG_ITS ---
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 Interpretive Statements NAME OF STUDY: LEXISCAN SESTAMIBI STRESS TEST INDICATION: NONSTEMI PROCEDURE: At the baseline, the EKG revealed atrial fibrillation with controlled ventricular response rate. Nonspecific IVCD. Left axis deviation poor R wave progression. The baseline heart was 86 bpm with a blood pressue of 153/76 mm of Hg Lexiscan was infused over a period of 20 seconds. A total of 0.4 milligrams of Lexiscan was infused. The stress phase was continued for a total of 5 minutes. Heart rate at the end of the stress phase was 90 bpm with a blood pressure 156/93 mm of Hg. The EKG at the peak infusion revealed no significant changes. Sestamibi was injected 20 seconds after the Lexiscan infusion. Heart rate at the end of the recovery phase was 89 bpm with a blood pressure of 115/79 mm of Hg. CONCLUSION: 1. No significant EKG changes with the LexiScan infusion 2. No LexiScan induced chest pain or cardiac arrhythmia 3. Normal blood pressure and heart rate response 4. Sestamibi/sestamibi perfusion scan pending; see separate report. Electronically Signed On 10-20-2023 14:57:06 ROOMS DIRECTOR by Keisha Coronel M.D. [email or web address]
[2023-10-16] MEDS: epoetin alfa 1000 Unit/0.05 mL (ESRD) 20000 UNIT IVP (11:54)
[2023-10-16] MEDS: heparin, porcine 1,000 unit/mL INJ 10 mL 10000 UNIT INTRACATH (12:07)
--- NOTE | 2023-10-16 12:17 | PC.HD ---
At conclusion of dialysis, heparin 2000 units and 2100 units were instilled into the arterial and venous ports, respectively, of the HD catheter.
[2023-10-16] MEDS: fluconazole premix 200 MG/100 ML PREMIX 100 MG IV (12:30)
[2023-10-16] MEDS: ondansetron 2 mg/ML SDV 2 mL 4 MG IVP (12:31)
--- NOTE | 2023-10-16 15:11 | P.PN_ITS ---
Subjective 2 Subjective: No acute events overnight. Patient has remained hemodynamically stable. Undergoing dialysis today. Prior to dialysis patient required oral midodrine. States feeling a lot better. Denies any chest pain. Medications: Reviewed: Yes Vitals/I&O/Wt Last Vital Signs Temp 97.7 F 10/16/23 12:16 Pulse 91 10/16/23 14:01 Resp 18 10/16/23 13:53 BP 110/87 10/16/23 12:16 Pulse Ox 98 10/16/23 13:53 O2 Del Method Nasal Cannula 10/16/23 13:53 O2 Flow Rate 2 10/16/23 13:53 FiO2 30 10/16/23 02:22 10/16/23 10/16/23 10/16/23 06:59 14:59 22:59 Intake Total 150 / 950 450 / 450 Output Total 700 / 1350 3500 / 3500 Balance -550 / -400 -3050 / -3050 Weight last 48 hrs Weight 102.7 kg Weight 105.375 kg Weight 105.857 kg Weight 105.3 kg Physical Exam 2 Const: COMMON NORMALS: patient oriented x3 and alert GENERAL APPEARANCE: c ooperative, comfortable, ill appearing and patient mechanically ventilated O RIENTATION/CONSCIOUSNESS: Yes awake HENMT: COMMON NORMALS: oropharynx normal Neck/C-Spine: COMMON NORMALS: no JVD Resp: COMMON NORMALS: clear to auscultation bilaterally AUSCULTATION: clear to auscultation bilaterally, no crackles, rales, no rhonchi, no wheezes and diminished lung sounds Cardio: COMMON NORMALS: no JVD, regular rhythm, S1 normal heart sound present, S2 normal heart sound present and No murmurs present (Cardio) RHYTHM: regular rhythm HEART SOUNDS: S1 normal heart sound present and S2 normal heart sound present GI: COMMON NORMALS: Normal to inspection, nondistended, normoactive bowel sounds present, Soft to palpation and non-tender PALPATION: Yes Soft to palpation Extremity: COMMON NORMALS: no joint enlargement GENERAL: Yes edema (1+) Neuro: COMMON NORMALS: patient oriented x3 and moves all extremities S ENSORIUM/ORIENTATION: Yes alert Skin: COMMON NORMALS: no rashes or lesions noted GENERAL SKIN EXAM: no rashes or lesions noted Urinary Catheter Management: Manzanares: Cath Placed During This Visit: yes Reason for Continuing Indwelling Catheter: Accurate Measurement of Urinary Output in Critically Ill Patients Urinary Catheter Date of Insertion: 10/12/23 Urinary Catheter Time of Insertion: 03:57 Data 10/16/23 04:43 10/16/23 04:43 Micro: Microbiology 10/12/23 03:55 Urine Culture - Final Urine,Clean Catch Amber glabrata A&P Assessment and plan (1) Acute respiratory failure: Acute respiratory failure acute decompensated systolic CHF, underlying pulmonary hypertension, COPD, respiratory distress, requiring intubation, congestive changes, opacities on CT. Extubated on . Oxygen supplementation keeping saturation over 88%. Continue with IV diuretics for congestive heart failure with 60 mg twice daily. Dialysis as per outpatient session and nephrology. Pulmicort twice daily, ipratropium, Xopenex every 6 hourly. Hold off on any steroids for now. Out of bed to chair. Incentive spirometry. (2) Congestive heart failure (CHF): As above. (3) NSTEMI (non-ST elevated myocardial infarction): Appreciate cardiology recommendations. Plan for Lexiscan stress test day after tomorrow. Plan for dialysis tomorrow to get patient more euvolemic. Continue with aspirin 81 mg daily, atorvastatin. Appreciate recent A1c and lipid panel. Heparin drip switched to Eliquis with the last 24 hours. (4) Renal failure: Appreciate nephrology consultation for dialysis. (5) UTI (urinary tract infection): Has had Manzanares catheter since last admission, catheter exchanged. UA sent, suggestive of UTI. Levaquin coverage for possible UTI, possible component of pneumonia. Plan Atrial fibrillation: Heart rate better controlled. Increase amiodarone to 200 mg twice daily. Increasing metoprolol to 50 mg twice daily to match home dose. Eliquis at 2.5 mg twice daily for stroke prevention. HTN: Goal blood pressure less than 140/90 mmHg with mean over 65. Continue with metoprolol 50 mg twice daily at home dose. Restart home midodrine 5 mg 3 times daily as needed. COPD, breathing treatments. HLD, MDD, Sacral decubitus ulcer, wound care with home dressing Full code Protonix for PUD prophylaxis Eliquis for DVT prophylaxis Plan for the day: Continue dialysis as per nephrology team. Monitor electrolytes. Goal blood pressure less than 140/90 mmHg. Midodrine 5 mg 3 times daily as needed for blood pressure lower than 110 systolic. Heart rate controlled. Continue with amiodarone 200 mg twice daily along with metoprolol 50 mg twice daily. Patient is euvolemic. Plan for Lexiscan stress test in AM. N.p.o. after midnight. Continue with Levaquin to finish now for 5-day course. Continue with fluconazole for overall 7 days. Transfer to [facility]. Attestations 2 Medical Necessity Statement*: Requires further hospitalization for management of respiratory failure in setting of congestive heart failure, non-ST elevation [place] in a patient was admitted with atrial fibrillation with rapid ventricular response Diagnoses Acute respiratory failure J96.00 Congestive heart failure (CHF) I50.9 NSTEMI (non-ST elevated myocardial infarction) I21.4 Renal failure N19 UTI (urinary tract infection) N39.0
[2023-10-16] MEDS: atorvastatin 40 mg Tablet PO (21:10)
[2023-10-17] VITALS (24 sets, daily range): BP systolic 114–125; BP diastolic 58–86; PULSE 81–103; RESP 17–34; TEMP 36.8–36.9; O2SAT 92–98; BMI 37.8
[2023-10-17] MEDS: levalbuterol 0.63 mg/3 mL Neb 0.630000000000000004 MG INHALATION ×3 (02:16→20:54)
[2023-10-17] MEDS: ipratropium 0.5 mg/2.5 mL Neb INHALATION ×3 (02:16→20:54)
[2023-10-17 04:16] LABS: Basophils % 0.8 %; Eosinophils # 0.1 10^3/uL (0.0-0.8); Eosinophils % 1.8 %; Hematocrit 27.8 % (36-47); Lymphocytes # 0.9 10^3/uL (0.8-4.8); Lymphocytes % 18.2 %; Mean Corpuscular HGB Conc 29.9 g/dL (30-55); Mean Corpuscular Hemoglobin 28.8 pg (27-33); Mean Corpuscular Volume 96.5 fl (85-98); Mean Platelet Volume 9.6 fL (7.4-10.4); Monocytes # 0.5 10^3/uL (0.2-0.9); Monocytes % 9.4 %; Neutrophils # 3.43 10^3/uL (1.8-7.7); Neutrophils % 68.8 %; Nucleated Red Blood Cells % 0 %; Platelet Count 158 10^3/cmm (157-399); Red Blood Count 2.88 10^6/uL (3.85-5.65); Red Cell Distribution Width 16.8 % (12.1-15.1); White Blood Count 4.99 10^3/uL (3.29-11.43)
[2023-10-17 04:42] LABS: Alanine Aminotransferase 13 U/L (0-33); Albumin Level 2.9 g/dL (3.5-5.2); Alkaline Phosphatase 95 U/L (35-105); Aspartate Amino Transferase 17 U/L (0-32); Blood Urea Nitrogen 19 mg/dL (8-23); Calcium 8.5 mg/dL (8.5-10.5); Carbon Dioxide 29 mmol/L (22-29); Chloride 101 mmol/L (98-107); Creatinine Clr Calc Pharmacy 33.9806; Glucose 139 mg/dL (65-115); Osmolality Calculated 293 mOsm/kg (285-295); Sodium 139 mmol/L (136-145); Total Bilirubin 0.2 mg/dL (0.15-1.2); Total Protein 5.9 g/dL (6.6-8.7)
[2023-10-17] MEDS: ondansetron 2 mg/ML SDV 2 mL 4 MG IVP ×2 (04:52→09:05)
[2023-10-17] MEDS: FUROsemide 10 mg/mL SDV 4mL 60 MG IVP ×2 (04:52→15:48)
[2023-10-17] MEDS: pantoprazole 40 mg SDV IVP ×2 (04:53→15:48)
--- NOTE | 2023-10-17 07:48 | P.PN_ITS ---
Subjective 2 Subjective: Patient denies chest pain. Had stress test that does not show any significant area of ischemia. Possible small artifact seen. Vitals/I&O/Wt Last Vital Signs Temp 97.7 F 10/16/23 12:16 Pulse 92 10/17/23 06:00 Resp 20 H 10/17/23 04:00 BP 113/75 10/16/23 20:30 Pulse Ox 94 10/17/23 02:17 O2 Del Method BiPAP 10/17/23 02:17 O2 Flow Rate 2 10/16/23 13:53 FiO2 30 10/17/23 02:17 10/16/23 10/17/23 10/17/23 22:59 06:59 14:59 Intake Total 480 / 480 Output Total 525 / 4025 200 / 4225 Balance -525 / -3575 -200 / -3775 480 / 480 Weight last 48 hrs Weight 227 lb 5 oz Weight 226 lb 6.636 oz Weight 232 lb 5 oz Physical Exam 2 Narrative: GENERAL: Patient is alert NECK: No jugular vein distension. [] HEENT: No cyanosis. No icterus. No pallor. [] HEART: Irregularly irregular LUNGS: Diminished air entry CENTRAL NERVOUS SYSTEM: Grossly nonfocal. [] EXTREMITIES: Lower extremities with 1+ edema bilaterally Urinary Catheter Management: Manzanares: Cath Placed During This Visit: yes Reason for Continuing Indwelling Catheter: Accurate Measurement of Urinary Output in Critically Ill Patients Urinary Catheter Date of Insertion: 10/12/23 Urinary Catheter Time of Insertion: 03:57 Data 10/18/23 03:30 10/18/23 03:30 Micro: Microbiology 10/12/23 00:44 Blood Culture - Final Blood NO GROWTH AFTER 5 DAYS 10/12/23 00:40 Blood Culture - Final Blood NO GROWTH AFTER 5 DAYS 10/12/23 03:55 Urine Culture - Final Urine,Clean Catch Amber glabrata A&P Assessment and plan (1) Acute respiratory failure: (2) Congestive heart failure (CHF): (3) NSTEMI (non-ST elevated myocardial infarction): (4) Renal failure: (5) UTI (urinary tract infection): (6) Atrial fibrillation with RVR: Plan Patient is overall stable. Stress test not showing significant ischemia. We will medically manage her. Uptitrate metoprolol. Echo showed normal LV systolic function. Continue diuresis and dialysis per nephrology recs Thank you for involving us with care of this patient. Please call with questions. Attestations 2 Medical Necessity Statement*: Care expected to cross 2 midnights. Coding Level of Care Code Acute Code for Chg Fwd Diagnoses Acute respiratory failure J96.00 Congestive heart failure (CHF) I50.9 NSTEMI (non-ST elevated myocardial infarction) I21.4 Renal failure N19 UTI (urinary tract infection) N39.0 Atrial fibrillation with RVR I48.91
--- NOTE | 2023-10-17 08:00 | NMCV_ITS ---
NM artemio perf SPECT r/s* [id number] Myesha Parker Age: 73 Gender: F : 1950 Exam Date: 10/17/2023 07:21 Ordering Phys: Michael Buenrostro MD Technologist: RAINER Huizar Exam Location: [facility] Indications: CHEST PAIN STRESS TEST [facility] IMAGE PROTOCOL Rest/Stress 1 Lexiscan Day Radiopharmaceutical Dose (mCi) Administration Site Administered by Rest: Tc-99m 10.9 IV RAINER Thompson Sestamibi Stress:Tc-99m 33.0 IV RAINER Thompson Sestamibi Rest: 17-Oct-2023 60 Discovery 630 Stress: 17-Oct-2023 30 Discovery 630 0.4mg Lexiscan. Supine position only as patient was unable to lay prone. SPECT RESULTS Technical Quality: Excellent Raw Data Analysis: Normal Image Corrections: No attenuation or motion correction applied Summed Stress Score: 1 Summed Rest Score: 0 Summed Difference Score: 1 PERFUSION FINDINGS A small area of slightly decreased tracer uptake was noted in the basal inferior wall region with the supine imaging, showing some reversibility. FUNCTIONAL RESULTS (calculated via Gated SPECT) Stress Image LV EF (%): 77 Stress EDV (mL):73 TID: 0.92 Stress ESV (mL):17 FUNCTIONAL FINDINGS: Segmental wall motion analysis revealing no gross wall motion abnormalities IMPRESSIONS 1. Myocardial perfusion imaging revealing small area of slightly decreased tracer uptake in the basal inferior wall region, with some reversibility in the supine imaging. However with the prone imaging, no reversible defects are noted. Because of the inconsistency, the reliability of this finding is questionable 2. Normal LV ejection fraction of 77%. 3. LV wall motion analysis revealing no gross wall motion abnormalities. 4. Normal LV volume Dr Keisha Coronel MD [facility]IN [facility] (Electronically Signed) Final Date: 17 October 2023 12:14 S
--- NOTE | 2023-10-17 08:59 | SUR.PREOP ---
pt c/o pain in the buttocks 03/05. Has wound down there. Patient's nurse notified. Bring PRN pain medication to treat.
[2023-10-17] MEDS: HYDROcodone-acetaminophen 5-325 mg Tablet 1 TAB PO ×2 (09:04→21:49)
[2023-10-17] MEDS: regadenoson 0.4 Mg/5 ml Syringe 0.400000000000000022 MG IVP (09:10)
--- NOTE | 2023-10-17 09:11 | PC.SOCIAL ---
IMM Update pg 2 of IMM updated and reviewed w/ patient. Copy provided. Copy dated, initialed and placed in chart.
--- NOTE | 2023-10-17 09:58 | P.PN_ITS ---
Subjective 2 Subjective: doing well on 2L Medications: Medication Review Details: medications reviewed Vitals/I&O/Wt Last Vital Signs Temp 97.7 F 10/16/23 12:16 Pulse 89 10/17/23 09:27 Resp 20 H 10/17/23 04:00 BP 115/79 10/17/23 09:27 Pulse Ox 94 10/17/23 02:17 O2 Del Method BiPAP 10/17/23 02:17 O2 Flow Rate 2 10/16/23 13:53 FiO2 30 10/17/23 02:17 10/16/23 10/17/23 10/17/23 22:59 06:59 14:59 Intake Total 960 / 960 Output Total 525 / 4025 200 / 4225 Balance -525 / -3575 -200 / -3775 960 / 960 Weight last 48 hrs Weight 103.107 kg Weight 102.7 kg Weight 105.375 kg Physical Exam 2 Narrative: Awake alert, no distress NO EDEMA Urinary Catheter Management: Manzanares: Cath Placed During This Visit: yes Reason for Continuing Indwelling Catheter: Accurate Measurement of Urinary Output in Critically Ill Patients Urinary Catheter Date of Insertion: 10/12/23 Urinary Catheter Time of Insertion: 03:57 Data 10/17/23 03:59 10/17/23 03:59 Micro: Microbiology 10/12/23 00:44 Blood Culture - Final Blood NO GROWTH AFTER 5 DAYS 10/12/23 00:40 Blood Culture - Final Blood NO GROWTH AFTER 5 DAYS 10/12/23 03:55 Urine Culture - Final Urine,Clean Catch Amber glabrata A&P Assessment and plan (1) End stage renal disease: Plan 1. ESRD, volume overload, s/p HD sunday Oxygenating well , on 2L [place] , next HD tomorrow Recommend 3x weekly HD. 2. Hypokalemia, replaced orally. 3. Anemia , order CARY with hD 4. Acute on chronic resp failure , recurrent admissions for volume overload, unable to do aggressive UF due to blood pressures being low while on HD Attestations 2 Medical Necessity Statement*: per nano Coding Level of Care Code Acute Code for Chg Fwd Diagnoses End stage renal disease N18.6
[2023-10-17] MEDS: folic acid 1 mg Tablet PO (10:12)
[2023-10-17] MEDS: metoprolol tartrate 25 mg Tablet 50 MG PO ×2 (10:12→21:33)
[2023-10-17] MEDS: aspirin 81 mg EC Tablet PO (10:12)
[2023-10-17] MEDS: amiodarone 200 mg Tablet PO ×2 (10:13→17:55)
[2023-10-17] MEDS: apixaban 5 mg Tablet 2.5 MG PO ×2 (10:13→21:33)
[2023-10-17] MEDS: levothyroxine 150 mcg Tablet PO (10:14)
[2023-10-17] MEDS: duloxetine 60 mg Capsule PO (10:14)
[2023-10-17] MEDS: cyanocobalamin 1,000 mcg Tablet 500 MCG PO (10:14)
[2023-10-17] MEDS: fluconazole premix 200 MG/100 ML PREMIX 100 MG IV (13:12)
--- NOTE | 2023-10-17 16:15 | P.PN_ITS ---
Subjective 2 Subjective: No acute events overnight. Today morning patient seen sitting up in chair. She states she is feeling a lot better but feeling fairly weak and tired. Denies any nausea vomiting, headache. Has remained hemodynamically stable and afebrile. Underwent cardiac stress test today. Medications: Reviewed: Yes Medication Review Details: medications reviewed Vitals/I&O/Wt Last Vital Signs Temp 98.4 F 10/17/23 15:59 Pulse 91 10/17/23 16:00 Resp 22 H 10/17/23 15:59 BP 122/80 10/17/23 15:59 Pulse Ox 98 10/17/23 15:59 O2 Del Method Nasal Cannula 10/17/23 15:59 O2 Flow Rate 2 10/17/23 15:59 FiO2 30 10/17/23 02:17 10/17/23 10/17/23 10/17/23 06:59 14:59 22:59 Intake Total 1282 / 1282 Output Total 200 / 4225 Balance -200 / -3775 1282 / 1282 Weight last 48 hrs Weight 103.107 kg Weight 102.7 kg Weight 105.375 kg Physical Exam 2 Const: COMMON NORMALS: patient oriented x3 and alert GENERAL APPEARANCE: c ooperative, comfortable, ill appearing and patient mechanically ventilated O RIENTATION/CONSCIOUSNESS: Yes awake HENMT: COMMON NORMALS: oropharynx normal Neck/C-Spine: COMMON NORMALS: no JVD Resp: COMMON NORMALS: clear to auscultation bilaterally AUSCULTATION: clear to auscultation bilaterally, no crackles, rales, no rhonchi, no wheezes and diminished lung sounds Cardio: COMMON NORMALS: no JVD, regular rhythm, S1 normal heart sound present, S2 normal heart sound present and No murmurs present (Cardio) RHYTHM: regular rhythm HEART SOUNDS: S1 normal heart sound present and S2 normal heart sound present GI: COMMON NORMALS: Normal to inspection, nondistended, normoactive bowel sounds present, Soft to palpation and non-tender PALPATION: Yes Soft to palpation Extremity: COMMON NORMALS: no joint enlargement GENERAL: Yes edema (1+) Neuro: COMMON NORMALS: patient oriented x3 and moves all extremities S ENSORIUM/ORIENTATION: Yes alert Skin: COMMON NORMALS: no rashes or lesions noted GENERAL SKIN EXAM: no rashes or lesions noted Urinary Catheter Management: Manzanares: Cath Placed During This Visit: yes Reason for Continuing Indwelling Catheter: Accurate Measurement of Urinary Output in Critically Ill Patients Urinary Catheter Date of Insertion: 10/12/23 Urinary Catheter Time of Insertion: 03:57 Data 10/17/23 03:59 10/17/23 03:59 Micro: Microbiology 10/12/23 00:44 Blood Culture - Final Blood NO GROWTH AFTER 5 DAYS 10/12/23 00:40 Blood Culture - Final Blood NO GROWTH AFTER 5 DAYS 10/12/23 03:55 Urine Culture - Final Urine,Clean Catch Amber glabrata A&P Assessment and plan (1) Acute respiratory failure: Acute respiratory failure acute decompensated systolic CHF, underlying pulmonary hypertension, COPD, respiratory distress, requiring intubation, congestive changes, opacities on CT. Extubated on . Oxygen supplementation keeping saturation over 88%. Continue with IV diuretics for congestive heart failure with 60 mg twice daily. Dialysis as per outpatient session and nephrology. Pulmicort twice daily, ipratropium, Xopenex every 6 hourly. Hold off on any steroids for now. Out of bed to chair. Incentive spirometry. (2) Congestive heart failure (CHF): As above. (3) NSTEMI (non-ST elevated myocardial infarction): Appreciate cardiology recommendations. Plan for Lexiscan stress test day after tomorrow. Plan for dialysis tomorrow to get patient more euvolemic. Continue with aspirin 81 mg daily, atorvastatin. Appreciate recent A1c and lipid panel. Heparin drip switched to Eliquis with the last 24 hours. (4) Renal failure: Appreciate nephrology consultation for dialysis. (5) UTI (urinary tract infection): Has had Manzanares catheter since last admission, catheter exchanged. UA sent, suggestive of UTI. Levaquin coverage for possible UTI, possible component of pneumonia. Plan Atrial fibrillation: Heart rate better controlled. Increase amiodarone to 200 mg twice daily. Increasing metoprolol to 50 mg twice daily to match home dose. Eliquis at 2.5 mg twice daily for stroke prevention. HTN: Goal blood pressure less than 140/90 mmHg with mean over 65. Continue with metoprolol 50 mg twice daily at home dose. Restart home midodrine 5 mg 3 times daily as needed. COPD, breathing treatments. HLD, MDD, Sacral decubitus ulcer, wound care with home dressing Full code Protonix for PUD prophylaxis Eliquis for DVT prophylaxis Plan for the day: Follow-up Lexiscan stress test results. Patient has remained chest pain-free. Plan continue with baby aspirin, statin and Eliquis. Heart rate well-controlled. Continue with amiodarone 200 mg twice daily for 7 days followed by 200 mg daily along with metoprolol. Midodrine as needed. Plan for dialysis in a.m. as per nephrology. Continue with out of bed to chair. Remove Manzanares. Will request micro lab to send Amber glabrata for sensitivities. For now continue with fluconazole to overall finish 7-day course. Patient has finished course of IV antibiotics. Maintain saturation of 90%. Continue nebulization treatment. Discharge plan: Plan to discharge back to SNF. Prior authorization awaited. Attestations 2 Medical Necessity Statement*: Requires further hospitalization further evaluation and management of non-ST elevation NH with Lexiscan stress test in a patient who was initially admitted for congestive heart failure, A-fib in setting of end-stage renal disease on hemodialysis Diagnoses Acute respiratory failure J96.00 Congestive heart failure (CHF) I50.9 NSTEMI (non-ST elevated myocardial infarction) I21.4 Renal failure N19 UTI (urinary tract infection) N39.0
--- NOTE | 2023-10-17 19:02 | PC.NURSE ---
pt refused to get her romero to be taken out. notified hospitalist. he is okay with it.
[2023-10-17] MEDS: budesonide 0.5 mg/2 mL Neb INHALATION (20:54)
[2023-10-17] MEDS: atorvastatin 40 mg Tablet PO (21:33)
[2023-10-18] VITALS (16 sets, daily range): BP systolic 93–134; BP diastolic 63–92; PULSE 75–103; RESP 18–42; TEMP 36.6–37; O2SAT 91–98; BMI 38.2
[2023-10-18] MEDS: levalbuterol 0.63 mg/3 mL Neb 0.630000000000000004 MG INHALATION ×4 (02:17→20:09)
[2023-10-18] MEDS: ipratropium 0.5 mg/2.5 mL Neb INHALATION ×4 (02:17→20:09)
[2023-10-18 03:41] LABS: Basophils % 0.8 %; Eosinophils # 0.1 10^3/uL (0.0-0.8); Hematocrit 26.7 % (36-47); Lymphocytes % 19.5 %; Mean Corpuscular HGB Conc 29.6 g/dL (30-55); Mean Corpuscular Hemoglobin 28.4 pg (27-33); Mean Platelet Volume 9.2 fL (7.4-10.4); Monocytes # 0.5 10^3/uL (0.2-0.9); Monocytes % 10.6 %; Neutrophils # 3.29 10^3/uL (1.8-7.7); Neutrophils % 65.5 %; Nucleated Red Blood Cells % 0 %; Platelet Count 173 10^3/cmm (157-399); Red Blood Count 2.78 10^6/uL (3.85-5.65); Red Cell Distribution Width 16.7 % (12.1-15.1); White Blood Count 5.02 10^3/uL (3.29-11.43)
[2023-10-18 04:00] LABS: Alanine Aminotransferase 13 U/L (0-33); Albumin Level 2.9 g/dL (3.5-5.2); Alkaline Phosphatase 92 U/L (35-105); Anion Gap 11.9 (5-19); Aspartate Amino Transferase 15 U/L (0-32); Blood Urea Nitrogen 23 mg/dL (8-23); Calcium 8.5 mg/dL (8.5-10.5); Carbon Dioxide 30 mmol/L (22-29); Chloride 101 mmol/L (98-107); Creatinine Clr Calc Pharmacy 30.4694; Globulin 2.7 g/dL (1.3-4.6); Glucose 141 mg/dL (65-115); Osmolality Calculated 294 mOsm/kg (285-295); Potassium 3.9 mmol/L (3.5-5.1); Sodium 139 mmol/L (136-145); Total Bilirubin 0.2 mg/dL (0.15-1.2); Total Protein 5.6 g/dL (6.6-8.7)
[2023-10-18] MEDS: pantoprazole 40 mg SDV IVP ×2 (04:50→15:51)
[2023-10-18] MEDS: FUROsemide 10 mg/mL SDV 4mL 60 MG IVP (04:50)
[2023-10-18] MEDS: duloxetine 60 mg Capsule PO (06:38)
[2023-10-18] MEDS: levothyroxine 150 mcg Tablet PO (06:38)
[2023-10-18] MEDS: folic acid 1 mg Tablet PO (06:38)
[2023-10-18] MEDS: budesonide 0.5 mg/2 mL Neb INHALATION ×2 (07:55→20:09)
--- NOTE | 2023-10-18 08:09 | P.PN_ITS ---
Subjective 2 Subjective: Patient is stable. No chest pain. Vitals/I&O/Wt Last Vital Signs Temp 98.1 F 10/18/23 05:31 Pulse 92 10/18/23 08:00 Resp 20 H 10/18/23 08:00 BP 128/70 10/18/23 05:31 Pulse Ox 97 10/18/23 08:00 O2 Del Method Nasal Cannula 10/18/23 08:00 O2 Flow Rate 2 10/18/23 08:00 FiO2 30 10/18/23 04:01 10/17/23 10/18/23 10/18/23 22:59 06:59 14:59 Intake Total 500 / 1782 200 / 1982 Output Total 600 / 600 200 / 800 Balance -100 / 1182 0 / 1182 Weight last 48 hrs Weight 230 lb 3 oz Weight 227 lb 5 oz Weight 226 lb 6.636 oz Physical Exam 2 Narrative: GENERAL: Patient is alert NECK: No jugular vein distension. [] HEENT: No cyanosis. No icterus. No pallor. [] HEART: Irregularly irregular LUNGS: Diminished air entry CENTRAL NERVOUS SYSTEM: Grossly nonfocal. [] EXTREMITIES: Lower extremities with 1+ edema bilaterally Urinary Catheter Management: Manzanares: Cath Placed During This Visit: yes Reason for Continuing Indwelling Catheter: Assist Healing of Perineal & Sacral Wounds- Incontinent Patients Urinary Catheter Date of Insertion: 10/12/23 Urinary Catheter Time of Insertion: 03:57 Data 10/18/23 03:30 10/18/23 03:30 A&P Assessment and plan (1) Acute respiratory failure: (2) Congestive heart failure (CHF): (3) NSTEMI (non-ST elevated myocardial infarction): (4) Renal failure: (5) UTI (urinary tract infection): (6) Atrial fibrillation with RVR: Plan Patient is doing well. We will continue with current medical therapy. A-fib is better controlled. Can uptitrate metoprolol as needed if heart rate worsened. Thank you for involving us with care of this patient. Please call with questions. Attestations 2 Medical Necessity Statement*: Care expected to cross 2 midnights. Coding Level of Care Code Acute Code for [facility] Diagnoses Acute respiratory failure J96.00 Congestive heart failure (CHF) I50.9 NSTEMI (non-ST elevated myocardial infarction) I21.4 Renal failure N19 UTI (urinary tract infection) N39.0 Atrial fibrillation with RVR I48.91
[2023-10-18] MEDS: cyanocobalamin 1,000 mcg Tablet 500 MCG PO (08:37)
[2023-10-18] MEDS: metoprolol tartrate 25 mg Tablet 50 MG PO ×2 (08:37→20:54)
[2023-10-18] MEDS: HYDROcodone-acetaminophen 5-325 mg Tablet 1 TAB PO (08:38)
[2023-10-18] MEDS: amiodarone 200 mg Tablet PO ×2 (08:38→18:35)
[2023-10-18] MEDS: midodrine 5 mg TABLET PO (09:19)
--- NOTE | 2023-10-18 09:22 | P.PN_ITS ---
Subjective 2 Subjective: gettitng HD Medications: Reviewed: Yes Vitals/I&O/Wt Last Vital Signs Temp 97.8 F 10/18/23 08:43 Pulse 93 10/18/23 08:43 Resp 31 H 10/18/23 08:43 BP 113/92 10/18/23 08:43 Pulse Ox 97 10/18/23 08:43 O2 Del Method Nasal Cannula 10/18/23 08:43 O2 Flow Rate 2 10/18/23 08:43 FiO2 30 10/18/23 04:01 10/17/23 10/18/23 10/18/23 22:59 06:59 14:59 Intake Total 500 / 1782 200 / 1982 354 / 354 Output Total 600 / 600 200 / 800 400 / 400 Balance -100 / 1182 0 / 1182 -46 / -46 Weight last 48 hrs Weight 104.411 kg Weight 103.107 kg Weight 102.7 kg Physical Exam 2 Narrative: Awake alert, no distress NO EDEMA Urinary Catheter Management: Manzanares: Cath Placed During This Visit: yes Reason for Continuing Indwelling Catheter: Assist Healing of Perineal & Sacral Wounds- Incontinent Patients Urinary Catheter Date of Insertion: 10/12/23 Urinary Catheter Time of Insertion: 03:57 Data 10/18/23 03:30 10/18/23 03:30 A&P Assessment and plan (1) End stage renal disease: Plan 1. ESRD, volume overload, s/p HD sunday Oxygenating well , on 2L NC , next HD today Recommend 3x weekly HD. 2. Hypokalemia, replaced orally. 3. Anemia , order CARY with hD 4. Acute on chronic resp failure , recurrent admissions for volume overload, unable to do aggressive UF due to blood pressures being low while on HD Attestations 2 Medical Necessity Statement*: per medicine Coding Level of Care Code Acute Code for Chg Fwd Diagnoses End stage renal disease N18.6
--- NOTE | 2023-10-18 09:50 | PC.NURSE ---
pt went for her hemodialysis session applied telemonitor box.
[2023-10-18] MEDS: epoetin alfa 1000 Unit/0.05 mL (ESRD) 20000 UNIT SUBCUT (10:23)
[2023-10-18] MEDS: albumin 12.5 GM/50 ML VIAL IV ×2 (10:24→10:58)
--- NOTE | 2023-10-18 11:51 | PC.OT ---
OT TX ATTEMPTED AT THIS TIME. PT OFF THE FLOOR FOR DIALYSIS. WILL ATTEMPT TREATMENT AT LATER TIME IF POSSIBLE.
[2023-10-18] MEDS: aspirin 81 mg EC Tablet PO (13:18)
[2023-10-18] MEDS: fluconazole premix 200 MG/100 ML PREMIX 100 MG IV (13:18)
[2023-10-18] MEDS: apixaban 5 mg Tablet 2.5 MG PO ×2 (13:18→20:53)
[2023-10-18] MEDS: heparin, porcine 1,000 unit/mL INJ 10 mL 10000 UNIT INTRACATH (13:21)
[2023-10-18] MEDS: heparin, porcine 1,000 unit/mL INJ 10 mL 1000 UNIT IV (13:21)
--- NOTE | 2023-10-18 13:34 | P.PN_ITS ---
Subjective 2 Subjective: No acute vents overnight. Patient has remained hemodynamic stable and afebrile. Today morning seen during dialysis. Again required midodrine prior to dialysis Medications: Reviewed: Yes Medication Review Details: medications reviewed Vitals/I&O/Wt Last Vital Signs Temp 97.8 F 10/18/23 08:43 Pulse 93 10/18/23 08:43 Resp 31 H 10/18/23 08:43 BP 113/92 10/18/23 08:43 Pulse Ox 97 10/18/23 08:43 O2 Del Method Nasal Cannula 10/18/23 08:43 O2 Flow Rate 2 10/18/23 08:43 FiO2 30 10/18/23 04:01 10/17/23 10/18/23 10/18/23 22:59 06:59 14:59 Intake Total 500 / 1782 200 / 1982 388 / 388 Output Total 600 / 600 200 / 800 400 / 400 Balance -100 / 1182 0 / 1182 -12 / -12 Weight last 48 hrs Weight 104.411 kg Weight 103.107 kg Physical Exam 2 Const: COMMON NORMALS: patient oriented x3 and alert GENERAL APPEARANCE: c ooperative, comfortable, ill appearing and patient mechanically ventilated O RIENTATION/CONSCIOUSNESS: Yes awake HENMT: COMMON NORMALS: oropharynx normal Neck/C-Spine: COMMON NORMALS: no JVD Resp: COMMON NORMALS: clear to auscultation bilaterally AUSCULTATION: clear to auscultation bilaterally, no crackles, rales, no rhonchi, no wheezes and diminished lung sounds Cardio: COMMON NORMALS: no JVD, regular rhythm, S1 normal heart sound present, S2 normal heart sound present and No murmurs present (Cardio) RHYTHM: regular rhythm HEART SOUNDS: S1 normal heart sound present and S2 normal heart sound present GI: COMMON NORMALS: Normal to inspection, nondistended, normoactive bowel sounds present, Soft to palpation and non-tender PALPATION: Yes Soft to palpation Extremity: COMMON NORMALS: no joint enlargement GENERAL: Yes edema (1+) Neuro: COMMON NORMALS: patient oriented x3 and moves all extremities S ENSORIUM/ORIENTATION: Yes alert Skin: COMMON NORMALS: no rashes or lesions noted GENERAL SKIN EXAM: no rashes or lesions noted Urinary Catheter Management: Manzanares: Cath Placed During This Visit: yes Reason for Continuing Indwelling Catheter: Assist Healing of Perineal & Sacral Wounds- Incontinent Patients Urinary Catheter Date of Insertion: 10/12/23 Urinary Catheter Time of Insertion: 03:57 Data 10/18/23 03:30 10/18/23 03:30 A&P Assessment and plan (1) Acute respiratory failure: Acute respiratory failure acute decompensated systolic CHF, underlying pulmonary hypertension, COPD, respiratory distress, requiring intubation, congestive changes, opacities on CT. Extubated on . Oxygen supplementation keeping saturation over 88%. Continue with IV diuretics for congestive heart failure with 60 mg twice daily. Dialysis as per outpatient session and nephrology. Pulmicort twice daily, ipratropium, Xopenex every 6 hourly. Hold off on any steroids for now. Out of bed to chair. Incentive spirometry. (2) Congestive heart failure (CHF): As above. (3) NSTEMI (non-ST elevated myocardial infarction): Appreciate cardiology recommendations. Negative Lexiscan stress test. Continue with aspirin 81 mg daily, atorvastatin. Appreciate recent A1c and lipid panel. (4) Renal failure: Appreciate nephrology consultation for dialysis. (5) UTI (urinary tract infection): Has had Manzanares catheter since last admission, catheter exchanged. UA sent, suggestive of UTI. Levaquin coverage for possible UTI, possible component of pneumonia. Plan Atrial fibrillation: Heart rate better controlled. Increase amiodarone to 200 mg twice daily. Increasing metoprolol to 50 mg twice daily to match home dose. Eliquis at 2.5 mg twice daily for stroke prevention. HTN: Goal blood pressure less than 140/90 mmHg with mean over 65. Continue with metoprolol 50 mg twice daily at home dose. Restart home midodrine 5 mg 3 times daily as needed. COPD, breathing treatments. HLD, MDD, Sacral decubitus ulcer, wound care with home dressing Full code Protonix for PUD prophylaxis Eliquis for DVT prophylaxis Plan for the day: Lexiscan stress test negative. Continue with aspirin and statin. Heart rate controlled. DC Manzanares catheter. Patient received catheter to be removed yesterday. Getting dialysis today. Switched from IV Lasix 60 mg twice daily to Bumex 2 mg twice daily. Discharge plan: Plan to discharge back to SNF. Prior authorization awaited. Attestations 2 Medical Necessity Statement*: Requires further hospitalization for management of congestive heart failure in setting of end-stage renal disease on hemodialysis, atrial fibrillation leading to respiratory failure while safe discharge planning is sought Diagnoses Acute respiratory failure J96.00 Congestive heart failure (CHF) I50.9 NSTEMI (non-ST elevated myocardial infarction) I21.4 Renal failure N19 UTI (urinary tract infection) N39.0
[2023-10-18] MEDS: lanolin oint 7 gm 1 APPLIC TOPICAL (15:51)
[2023-10-18] MEDS: ondansetron 2 mg/ML SDV 2 mL 4 MG IVP (15:51)
[2023-10-18] MEDS: docusate sodium 100 mg Capsule PO (18:34)
[2023-10-18] MEDS: bumetanide 1 mg Tablet 2 MG PO (18:35)
[2023-10-18] MEDS: magnesium hydroxide 30 mL UDC PO (18:35)
[2023-10-18] MEDS: atorvastatin 40 mg Tablet PO (20:53)
[2023-10-19] VITALS (13 sets, daily range): BP systolic 108–134; BP diastolic 69–93; PULSE 82–105; RESP 15–29; TEMP 36.5–37; O2SAT 92–99
[2023-10-19] MEDS: HYDROcodone-acetaminophen 5-325 mg Tablet 1 TAB PO ×2 (01:12→20:16)
[2023-10-19] MEDS: ipratropium 0.5 mg/2.5 mL Neb INHALATION ×4 (02:36→20:39)
[2023-10-19] MEDS: levalbuterol 0.63 mg/3 mL Neb 0.630000000000000004 MG INHALATION ×4 (02:36→20:39)
[2023-10-19] MEDS: pantoprazole 40 mg SDV IVP ×2 (04:50→17:08)
[2023-10-19] MEDS: levothyroxine 150 mcg Tablet PO (06:34)
[2023-10-19] MEDS: folic acid 1 mg Tablet PO (06:34)
[2023-10-19] MEDS: duloxetine 60 mg Capsule PO (06:34)
[2023-10-19] MEDS: ondansetron 2 mg/ML SDV 2 mL 4 MG IVP (06:34)
[2023-10-19] MEDS: cyanocobalamin 1,000 mcg Tablet 500 MCG PO (06:34)
[2023-10-19] MEDS: budesonide 0.5 mg/2 mL Neb INHALATION ×2 (08:22→20:39)
[2023-10-19] MEDS: bumetanide 1 mg Tablet 2 MG PO ×2 (08:50→17:08)
[2023-10-19] MEDS: aspirin 81 mg EC Tablet PO (08:50)
[2023-10-19] MEDS: apixaban 5 mg Tablet 2.5 MG PO ×2 (08:50→20:16)
[2023-10-19] MEDS: amiodarone 200 mg Tablet PO ×2 (08:50→17:08)
[2023-10-19] MEDS: docusate sodium 100 mg Capsule PO ×2 (08:50→17:08)
[2023-10-19] MEDS: metoprolol tartrate 25 mg Tablet 50 MG PO ×2 (08:50→20:17)
--- NOTE | 2023-10-19 09:00 | PC.SOCIAL ---
IMM Update pg 2 of IMM updated and reviewed w/ patient. Copy provided and copy dated, initialed and placed in chart.
[2023-10-19 10:40] LABS: SARS Covid-2 Antigen negative (Negative)
[2023-10-19] MEDS: fluconazole premix 200 MG/100 ML PREMIX 100 MG IV (11:21)
--- NOTE | 2023-10-19 12:38 | P.PN_ITS ---
Subjective 2 Subjective: no new complaints Medications: Reviewed: Yes Vitals/I&O/Wt Last Vital Signs Temp 98.4 F 10/19/23 11:55 Pulse 91 10/19/23 11:55 Resp 15 10/19/23 11:55 BP 124/76 10/19/23 11:55 Pulse Ox 98 10/19/23 11:55 O2 Del Method Nasal Cannula 10/19/23 11:55 O2 Flow Rate 2 10/19/23 08:22 FiO2 30 10/18/23 20:09 10/18/23 10/19/23 10/19/23 22:59 06:59 14:59 Intake Total 355 / 1793 400 / 2193 Output Total 0 / 4032 Balance 355 / -2239 400 / -1839 Weight last 48 hrs Weight 103.419 kg Weight 101.2 kg Weight 104.411 kg Physical Exam 2 Narrative: Awake alert, no distress NO EDEMA Urinary Catheter Management: Manzanares: Cath Placed During This Visit: yes, but has since been removed by the nurse Reason for Continuing Indwelling Catheter: Decision to DC Catheter Urinary Catheter Date of Insertion: 10/12/23 Urinary Catheter Time of Insertion: 03:57 Date Urinary Catheter Removed: 10/18/23 Time Urinary Catheter Discontinued: 15:12 Data 10/20/23 03:42 10/20/23 03:42 A&P Assessment and plan (1) End stage renal disease: Plan 1. ESRD, volume overload, s/p HD sunday Oxygenating well , on 2L NC , next HD tomorrow Recommend 3x weekly HD. 2. Hypokalemia, replaced orally. 3. Anemia , order CARY with hD 4. Acute on chronic resp failure , recurrent admissions for volume overload, unable to do aggressive UF due to blood pressures being low while on HD Attestations 2 Medical Necessity Statement*: per nano Coding Level of Care Code Acute Code for Chg Fwd Diagnoses End stage renal disease N18.6
--- NOTE | 2023-10-19 13:01 | P.PN_ITS ---
Subjective 2 Subjective: No acute vents overnight. Patient underwent hemodialysis yesterday. Today morning seen with family at bedside. Patient states she is feeling better. Getting stronger. Saturating well on 2 L nasal cannula. Has remained hemodynamically stable after dialysis. Medications: Reviewed: Yes Medication Review Details: medications reviewed Vitals/I&O/Wt Last Vital Signs Temp 98.4 F 10/19/23 11:55 Pulse 91 10/19/23 11:55 Resp 15 10/19/23 11:55 BP 124/76 10/19/23 11:55 Pulse Ox 98 10/19/23 11:55 O2 Del Method Nasal Cannula 10/19/23 11:55 O2 Flow Rate 2 10/19/23 08:22 FiO2 30 10/18/23 20:09 10/18/23 10/19/23 10/19/23 22:59 06:59 14:59 Intake Total 355 / 1793 400 / 2193 340 / 340 Output Total 0 / 4032 Balance 355 / -2239 400 / -1839 340 / 340 Weight last 48 hrs Weight 103.419 kg Weight 101.2 kg Weight 104.411 kg Physical Exam 2 Const: COMMON NORMALS: patient oriented x3 and alert GENERAL APPEARANCE: c ooperative, comfortable, ill appearing and patient mechanically ventilated O RIENTATION/CONSCIOUSNESS: Yes awake HENMT: COMMON NORMALS: oropharynx normal Neck/C-Spine: COMMON NORMALS: no JVD Resp: COMMON NORMALS: clear to auscultation bilaterally AUSCULTATION: clear to auscultation bilaterally, no crackles, rales, no rhonchi, no wheezes and diminished lung sounds Cardio: COMMON NORMALS: no JVD, regular rhythm, S1 normal heart sound present, S2 normal heart sound present and No murmurs present (Cardio) RHYTHM: regular rhythm HEART SOUNDS: S1 normal heart sound present and S2 normal heart sound present GI: COMMON NORMALS: Normal to inspection, nondistended, normoactive bowel sounds present, Soft to palpation and non-tender PALPATION: Yes Soft to palpation Extremity: COMMON NORMALS: no joint enlargement GENERAL: Yes edema (1+) Neuro: COMMON NORMALS: patient oriented x3 and moves all extremities S ENSORIUM/ORIENTATION: Yes alert Skin: COMMON NORMALS: no rashes or lesions noted GENERAL SKIN EXAM: no rashes or lesions noted Urinary Catheter Management: Manzanares: Cath Placed During This Visit: yes, but has since been removed by the nurse Reason for Continuing Indwelling Catheter: Decision to DC Catheter Urinary Catheter Date of Insertion: 10/12/23 Urinary Catheter Time of Insertion: 03:57 Date Urinary Catheter Removed: 10/18/23 Time Urinary Catheter Discontinued: 15:12 Data 10/18/23 03:30 10/18/23 03:30 A&P Assessment and plan (1) Acute respiratory failure: Acute respiratory failure acute decompensated systolic CHF, underlying pulmonary hypertension, COPD, respiratory distress, requiring intubation, congestive changes, opacities on CT. Extubated on . Oxygen supplementation keeping saturation over 88%. Continue with IV diuretics for congestive heart failure with 60 mg twice daily. Dialysis as per outpatient session and nephrology. Pulmicort twice daily, ipratropium, Xopenex every 6 hourly. Hold off on any steroids for now. Out of bed to chair. Incentive spirometry. (2) Congestive heart failure (CHF): As above. (3) NSTEMI (non-ST elevated myocardial infarction): Appreciate cardiology recommendations. Negative Lexiscan stress test. Continue with aspirin 81 mg daily, atorvastatin. Appreciate recent A1c and lipid panel. (4) Renal failure: Appreciate nephrology consultation for dialysis. (5) UTI (urinary tract infection): Has had Manzanares catheter since last admission, catheter exchanged. UA sent, suggestive of UTI. Levaquin coverage for possible UTI, possible component of pneumonia. Plan Atrial fibrillation: Heart rate better controlled. Increase amiodarone to 200 mg twice daily. Increasing metoprolol to 50 mg twice daily to match home dose. Eliquis at 2.5 mg twice daily for stroke prevention. HTN: Goal blood pressure less than 140/90 mmHg with mean over 65. Continue with metoprolol 50 mg twice daily at home dose. Restart home midodrine 5 mg 3 times daily as needed. COPD, breathing treatments. HLD, MDD, Sacral decubitus ulcer, wound care with home dressing Full code Protonix for PUD prophylaxis Eliquis for DVT prophylaxis Plan for the day: Continue current medication. Plan for repeat hemodialysis tomorrow and then discharge to SNF. Patient has received prior authorization. After discharge next hemodialysis session will be on Sunday which is 10/23 as per the schedule of Sunday with the patient at a higher risk of congestive heart failure if she does not receive dialysis tomorrow. For now continue with amiodarone 200 mg twice daily, Eliquis, aspirin, metoprolol 50 mg twice daily with midodrine as needed prior to dialysis. Will discharge her on these current medications along with oral fluconazole for 7 more days. Manzanares catheter DC'd yesterday. Plan discussed in detail with patient at bedside. She verbalized understanding and is agreeable. Attestations 2 Medical Necessity Statement*: Requires further hospitalization for management of congestive heart failure in setting of end-stage renal disease on hemodialysis, atrial fibrillation while safe discharge planning is sought Diagnoses Acute respiratory failure J96.00 Congestive heart failure (CHF) I50.9 NSTEMI (non-ST elevated myocardial infarction) I21.4 Renal failure N19 UTI (urinary tract infection) N39.0
[2023-10-19] MEDS: atorvastatin 40 mg Tablet PO (20:15)
--- NOTE | 2023-10-19 20:15 | P.PN_ITS ---
Subjective 2 Subjective: Patient doing well. No chest pain. Vitals/I&O/Wt Last Vital Signs Temp 97.7 F 10/19/23 16:00 Pulse 83 10/19/23 16:00 Resp 27 H 10/19/23 16:00 BP 117/74 10/19/23 16:00 Pulse Ox 92 10/19/23 16:00 O2 Del Method Nasal Cannula 10/19/23 16:00 O2 Flow Rate 2 10/19/23 13:47 FiO2 30 10/18/23 20:09 10/19/23 10/19/23 10/19/23 06:59 14:59 22:59 Intake Total 400 / 2193 340 / 340 93.667 / 433.667 Output Total 0 / 4032 Balance 400 / -1839 340 / 340 93.667 / 433.667 Weight last 48 hrs Weight 228 lb Weight 223 lb 1.725 oz Weight 230 lb 3 oz Physical Exam 2 Narrative: GENERAL: Patient is alert NECK: No jugular vein distension. [] HEENT: No cyanosis. No icterus. No pallor. [] HEART: Irregularly irregular LUNGS: Diminished air entry CENTRAL NERVOUS SYSTEM: Grossly nonfocal. [] EXTREMITIES: Lower extremities with 1+ edema bilaterally Urinary Catheter Management: Manzanares: Cath Placed During This Visit: yes, but has since been removed by the nurse Reason for Continuing Indwelling Catheter: Decision to DC Catheter Urinary Catheter Date of Insertion: 10/12/23 Urinary Catheter Time of Insertion: 03:57 Date Urinary Catheter Removed: 10/18/23 Time Urinary Catheter Discontinued: 15:12 Data 10/20/23 03:42 10/20/23 03:42 A&P Assessment and plan (1) Atrial fibrillation with RVR: (2) Acute non-ST elevation myocardial infarction (NSTEMI): (3) Amber albicans infection: (4) Low vitamin B12 level: (5) Acute respiratory failure: (6) Congestive heart failure (CHF): (7) NSTEMI (non-ST elevated myocardial infarction): (8) Renal failure: (9) UTI (urinary tract infection): Plan Patient is stable. Continue current medications. A-fib is controlled. Thank you for involving us with care of this patient. Please call with questions. Attestations 2 Medical Necessity Statement*: Care expected to cross 2 midnights. Coding Level of Care Code Acute Code for Chg Fwd Diagnoses Atrial fibrillation with RVR I48.91 Acute non-ST elevation myocardial infarction (NSTEMI) I21.4 Amber albicans infection B37.9 Low vitamin B12 level R79.89 Acute respiratory failure J96.00 Congestive heart failure (CHF) I50.9 NSTEMI (non-ST elevated myocardial infarction) I21.4 Renal failure N19 UTI (urinary tract infection) N39.0
[2023-10-19 20:40] LABS: Glucose Point of Care 183 mg/dL (70-110)
[2023-10-20] VITALS (11 sets, daily range): BP systolic 124–142; BP diastolic 60–95; PULSE 81–104; RESP 18–27; TEMP 36.4–36.9; O2SAT 95–98
[2023-10-20] MEDS: ipratropium 0.5 mg/2.5 mL Neb INHALATION ×2 (02:42→07:54)
[2023-10-20] MEDS: levalbuterol 0.63 mg/3 mL Neb 0.630000000000000004 MG INHALATION ×2 (02:42→07:54)
[2023-10-20 04:14] LABS: Basophils # 0.1 10^3/uL (0.0-0.1); Basophils % 1.2 %; Eosinophils # 0.1 10^3/uL (0.0-0.8); Eosinophils % 2.6 %; Hematocrit 28.3 % (36-47); Lymphocytes # 0.9 10^3/uL (0.8-4.8); Lymphocytes % 18.4 %; Mean Corpuscular Volume 96.6 fl (85-98); Mean Platelet Volume 9.1 fL (7.4-10.4); Monocytes # 0.5 10^3/uL (0.2-0.9); Monocytes % 10.4 %; Neutrophils # 3.31 10^3/uL (1.8-7.7); Nucleated Red Blood Cells % 0 %; Platelet Count 212 10^3/cmm (157-399); Red Blood Count 2.93 10^6/uL (3.85-5.65); Red Cell Distribution Width 16.6 % (12.1-15.1); White Blood Count 5.01 10^3/uL (3.29-11.43)
[2023-10-20] MEDS: pantoprazole 40 mg SDV IVP (04:33)
[2023-10-20 04:42] LABS: Alanine Aminotransferase 11 U/L (0-33); Albumin Level 3.2 g/dL (3.5-5.2); Alkaline Phosphatase 89 U/L (35-105); Anion Gap 12.1 (5-19); Aspartate Amino Transferase 14 U/L (0-32); Blood Urea Nitrogen 29 mg/dL (8-23); Calcium 9.2 mg/dL (8.5-10.5); Carbon Dioxide 31 mmol/L (22-29); Chloride 101 mmol/L (98-107); Creatinine Clr Calc Pharmacy 30.5198; Globulin 2.7 g/dL (1.3-4.6); Glucose 148 mg/dL (65-115); Osmolality Calculated 299 mOsm/kg (285-295); Potassium 4.1 mmol/L (3.5-5.1); Sodium 140 mmol/L (136-145); Total Bilirubin 0.3 mg/dL (0.15-1.2); Total Protein 5.9 g/dL (6.6-8.7)
--- NOTE | 2023-10-20 06:02 | P.PN_ITS ---
Subjective 2 Subjective: no new c/o Medications: Reviewed: Yes Vitals/I&O/Wt Last Vital Signs Temp 98.4 F 10/20/23 04:00 Pulse 98 10/20/23 04:00 Resp 21 H 10/20/23 04:00 BP 124/80 10/20/23 04:00 Pulse Ox 95 10/20/23 04:00 O2 Del Method Nasal Cannula 10/20/23 04:00 O2 Flow Rate 30 10/20/23 02:43 FiO2 30 10/20/23 00:27 10/19/23 10/19/23 10/20/23 14:59 22:59 06:59 Intake Total 340 / 340 93.667 / 041.336 9823 / 1833.667 Balance 340 / 340 93.667 / 458.779 8553 / 1833.667 Weight last 48 hrs Weight 101.968 kg Weight 103.419 kg Weight 101.2 kg Physical Exam 2 Narrative: Awake alert, no distress NO EDEMA Urinary Catheter Management: Manzanares: Cath Placed During This Visit: yes, but has since been removed by the nurse Reason for Continuing Indwelling Catheter: Decision to DC Catheter Urinary Catheter Date of Insertion: 10/12/23 Urinary Catheter Time of Insertion: 03:57 Date Urinary Catheter Removed: 10/18/23 Time Urinary Catheter Discontinued: 15:12 Data 10/20/23 03:42 10/20/23 03:42 A&P Assessment and plan (1) End stage renal disease: (2) Atrial fibrillation with RVR: (3) Acute non-ST elevation myocardial infarction (NSTEMI): (4) Amber albicans infection: Plan 1. ESRD, volume overload, s/p HD sunday Oxygenating well , on 2L NC , next HD today Recommend 3x weekly HD. 2. Hypokalemia, replaced orally. 3. Anemia , order CARY with hD 4. Acute on chronic resp failure , recurrent admissions for volume overload, unable to do aggressive UF due to blood pressures being low while on HD Attestations 2 Medical Necessity Statement*: per nano Coding Level of Care Code Acute Code for Chg Fwd Diagnoses End stage renal disease N18.6 Atrial fibrillation with RVR I48.91 Acute non-ST elevation myocardial infarction (NSTEMI) I21.4 Amber albicans infection B37.9
[2023-10-20] MEDS: levothyroxine 150 mcg Tablet PO (06:35)
[2023-10-20] MEDS: cyanocobalamin 1,000 mcg Tablet 500 MCG PO (06:35)
[2023-10-20] MEDS: folic acid 1 mg Tablet PO (06:35)
[2023-10-20] MEDS: duloxetine 60 mg Capsule PO (06:35)
[2023-10-20] MEDS: budesonide 0.5 mg/2 mL Neb INHALATION (07:54)
[2023-10-20] MEDS: heparin, porcine 1,000 unit/mL INJ 10 mL 1000 UNIT IV (08:25)
[2023-10-20] MEDS: heparin, porcine 1,000 unit/mL INJ 10 mL 10000 UNIT INTRACATH (08:26)
[2023-10-20] MEDS: albumin 12.5 GM/50 ML VIAL IV ×2 (09:20→10:10)
[2023-10-20] MEDS: aspirin 81 mg EC Tablet PO (13:32)
[2023-10-20] MEDS: amiodarone 200 mg Tablet PO (13:32)
[2023-10-20] MEDS: metoprolol tartrate 25 mg Tablet 50 MG PO (13:32)
[2023-10-20] MEDS: midodrine 5 mg TABLET PO (13:32)
[2023-10-20] MEDS: apixaban 5 mg Tablet 2.5 MG PO (13:32)
[2023-10-20] MEDS: fluconazole premix 200 MG/100 ML PREMIX 100 MG IV (13:33)
--- NOTE | 2023-10-20 14:14 | PM.DCS ---
Discharge Providers Date of Admission: 10/12/23 02:50 Date of Discharge: October 20, 2023 Attending Provider at Admission: Milton Blandon Attending Provider at Discharge: Michael Buenrostro MD Primary Care Provider: Davion Griggs MD Diagnoses at Discharge Discharge Diagnosis (1) End stage renal disease: Status: Acute (2) Acute exacerbation of CHF (congestive heart failure): Status: Acute Qualifiers: Heart failure type: combined systolic and diastolic Qualified Code(s): I50.43 - Acute on chronic combined systolic (congestive) and diastolic (congestive) heart failure (3) Acute respiratory failure with hypoxia and hypercarbia: Status: Acute (4) NSTEMI (non-ST elevated myocardial infarction): Status: Acute (5) Atrial fibrillation with RVR: Status: Acute Reason for Visit Reason for Visit: A fib/RVR Hospital Course Hospital Course 73-year-old female presented to the ER with complaint of shortness of breath, noted to be in atrial fibrillation and was admitted for treatment of A-fib with RVR. She had recently been in the hospital prior to this episode, and was discharged to [facility]. Patient has chronic kidney disease, and is on dialysis 3 times weekly. On admission, she was started on antibiotics due to concern for UTI and possible pneumonia. Was also noted to have an elevated troponin, and an NSTEMI was considered, as well as her Renal status. She was intubated due to the severity of her respiratory status, and she was transferred to ICU. She was able to be extubated during this stay, and her respiratory status improved over the course of her hospitalization. Cardiology and nephrology were both consulted. She was continued on dialysis throughout the hospitalization. She was initially on Levophed for hypotension, and this also improved during the hospitalization. Prior to her discharge she was started on amiodarone and Eliquis for her atrial fibrillation. Case management was consulted and arrangements for discharge to [facility] facility were addressed. Patient did transfer to [facility] facility in improved condition. Physical Exam Narrative: General: Cooperative patient in no apparent distress. Well developed. HEENT: Normocephalic, Atraumatic. External ears normal. Nasal passages patent without drainage. MMM. Heart: Irregularly irregular rhythm. Resp: LCTA. No respiratory distress, no use of accessory muscles. Abd: Soft, non-tender. Non-distended. Extremities: No edema. Skin: No rash or lesions on exposed areas. Urinary Catheter Management: Manzanares: Cath Placed During This Visit: yes, but has since been removed by the nurse Reason for Continuing Indwelling Catheter: Decision to DC Catheter Urinary Catheter Date of Insertion: 10/12/23 Urinary Catheter Time of Insertion: 03:57 Date Urinary Catheter Removed: 10/18/23 Time Urinary Catheter Discontinued: 15:12 Discharge Data Studies Completed and Pending Completed Studies During Hospitalization Category Date Time Status Sestamibi Stress Test Request Routine Exams 10/16/23 11:29 Draft XR chest 1V portable [id number] Stat Exams 10/12/23 00:31 Completed XR chest 1V portable [id number] Stat Exams 10/12/23 01:32 Completed XR chest 1V portable [id number] Urgent Exams 10/13/23 10:10 Completed NM artemio perf SPECT r/s* [id number] Routine Nuc Med 10/17/23 08:00 Completed CV. echo lmt w color [id number] Routine Ultrasound 10/12/23 05:05 Completed Radiology Impressions Chest X-Ray 10/13/23 10:10 IMPRESSION: 1. Bilateral pleural effusions. 2. Right side PICC line extends to the SVC. 3. Large bore right central line extends to the caval atrial junction Laboratory Results WBC 5.01 10^3/uL (3.29-11.43) 10/20/23 03:42 RBC 2.93 10^6/uL (3.85-5.65) L 10/20/23 03:42 Hgb 8.50 g/dL (11.27-16.99) L 10/20/23 03:42 Hct 28.3 % (36-47) L 10/20/23 03:42 MCV 96.6 fl (85-98) 10/20/23 03:42 MCH 29.0 pg (27-33) 10/20/23 03:42 MCHC 30.0 g/dL (30-55) 10/20/23 03:42 RDW 16.6 % (12.1-15.1) H 10/20/23 03:42 Plt Count 212 10^3/cmm (157-399) 10/20/23 03:42 MPV 9.1 fL (7.4-10.4) 10/20/23 03:42 Neut % (Auto) 66.0 % 10/20/23 03:42 Lymph % (Auto) 18.4 % 10/20/23 03:42 [place] % (Auto) 10.4 % 10/20/23 03:42 Eos % (Auto) 2.6 % 10/20/23 03:42 Baso % (Auto) 1.2 % 10/20/23 03:42 Neut # (Auto) 3.31 10^3/uL (1.8-7.7) 10/20/23 03:42 Lymph # (Auto) 0.9 10^3/uL (0.8-4.8) 10/20/23 03:42 [place] # (Auto) 0.5 10^3/uL (0.2-0.9) 10/20/23 03:42 Eos # (Auto) 0.1 10^3/uL (0.0-0.8) 10/20/23 03:42 Baso # (Auto) 0.1 10^3/uL (0.0-0.1) 10/20/23 03:42 Nucleated RBC % (auto) 0 % 10/20/23 03:42 Nucleated RBCs # 0.0 /100WBC 10/20/23 03:42 PT 15.70 SECONDS (12.1-14.9) H 10/12/23 00:33 INR 1.21 (0.8-1.2) H 10/12/23 00:33 APTT 53.8 SECONDS (23.9-36.7) H 10/14/23 09:20 Specimen Type Arterial 10/13/23 04:34 Sample Site Brachial, right 10/13/23 04:34 ABG pH 7.55 (7.35-7.45) H 10/13/23 04:34 ABG pCO2 34.7 mmHg (35-45) L 10/13/23 04:34 ABG pO2 76.8 mmHg (80.0-100.0) L 10/13/23 04:34 ABG PO2/FiO2 Ratio 0 10/13/23 04:34 ABG HCO3 30.3 mmol/L (22-26) H 10/13/23 04:34 ABG O2 Saturation 96.4 10/13/23 04:34 ABG Base Excess 7.5 mmol/L (-2.0-2.0) H 10/13/23 04:34 Memo Test N/a 10/13/23 04:34 A-a O2 Gradient 10.5 mmHg (5-10) H 10/13/23 04:34 Hematocrit 28.7 % (37-47) L 10/13/23 04:34 Hgb O2 Saturation 94.7 % (95-100) L 10/13/23 04:34 Carboxyhemoglobin 1.3 %THgb (0.4-20.1) 10/13/23 04:34 Methemoglobin 0.5 % (0.4-1.5) 10/13/23 04:34 Total Hemoglobin 9.4 g/dL (12-16) L 10/13/23 04:34 Sodium 138.0 mmol/L (131-143) 10/13/23 04:34 Potassium 3.2 mmol/L (3.5-5.0) L 10/13/23 04:34 Glucose 152.0 mg/dL (70-115) H 10/13/23 04:34 Ionized Calcium 1.2 mmol/L (1.1-1.4) 10/13/23 04:34 Respiration Rate 16.0 % 10/12/23 07:50 O2 Delivery Device Vent 10/13/23 04:34 FiO2 28.0 % 10/13/23 04:34 Tidal Volume 0.45 10/13/23 04:34 PEEP 8.0 cmH20 10/13/23 04:34 Specimen Drawn By Saman 10/12/23 07:50 Remelt Furnace Expediter ID Virgil 10/13/23 04:34 Sodium 140 mmol/L (136-145) 10/20/23 03:42 Potassium 4.1 mmol/L (3.5-5.1) 10/20/23 03:42 Chloride 101 mmol/L (98-107) 10/20/23 03:42 Carbon Dioxide 31 mmol/L (22-29) H 10/20/23 03:42 Anion Gap 12.1 (5-19) 10/20/23 03:42 BUN 29 mg/dL (8-23) H 10/20/23 03:42 Creatinine 1.9 mg/dL (0.5-0.9) H 10/20/23 03:42 GFR Calculation Not Reportable 10/20/23 03:42 Glucose 148 mg/dL (65-115) H 10/20/23 03:42 POC Glucose 183 mg/dL (70-110) H 10/19/23 20:35 Calculated Osmolality 299 mOsm/kg (285-295) H 10/20/23 03:42 Lactic Acid 2.5 mmol/L (0.5-2.2) H 10/12/23 00:33 Lactic Acid (Sepsis) 2.8 mmol/L (0.5-2.2) H 10/12/23 02:59 Calcium 9.2 mg/dL (8.5-10.5) 10/20/23 03:42 Phosphorus 3.2 mg/dL (2.5-4.5) 10/15/23 05:26 Magnesium 1.6 mg/dL (1.7-2.3) L 10/15/23 05:26 Total Bilirubin 0.3 mg/dL (0.15-1.2) 10/20/23 03:42 AST 14 U/L (0-32) 10/20/23 03:42 ALT 11 U/L (0-33) 10/20/23 03:42 Alkaline Phosphatase 89 U/L (35-105) 10/20/23 03:42 Troponin T 5th Gen ng/L 166 ng/L (0-10) H* 10/15/23 05:26 Troponin T Baseline 153 ng/L (0-10) H* 10/12/23 00:33 Troponin T 120 Minute 165.5 ng/L (0-10) H 10/12/23 02:59 Delta Troponin T 12.5 ABS# (0-10) H* 10/12/23 02:59 Troponin T Hi Sens 6Hr 167.2 ng/L (0-10) H 10/12/23 05:47 Troponin T Hi Sens 6Hr Delta 14.2 ng/L (0-12) H* 10/12/23 05:47 NT-Pro-B Natriuret Pep 34907 pg/mL (0-450) H 10/12/23 00:33 Total Protein 5.9 g/dL (6.6-8.7) L 10/20/23 03:42 Albumin 3.2 g/dL (3.5-5.2) L 10/20/23 03:42 Globulin 2.7 g/dL (1.3-4.6) 10/20/23 03:42 Procalcitonin 0.19 ng/mL (0-0.5) 10/12/23 00:33 Urine Color Dark yellow (Yellow) 10/12/23 03:55 Urine Appearance Hazy (CLEAR) A 10/12/23 03:55 Urine pH 5 (5-7) 10/12/23 03:55 Ur Specific [place] 1.015 (1.005-1.030) 10/12/23 03:55 Urine Protein Trace (Negative) 10/12/23 03:55 Urine Glucose (UA) Norm (Normal) 10/12/23 03:55 Urine Ketones Negative (Negative) 10/12/23 03:55 Urine Blood 3+ (Negative) H 10/12/23 03:55 Urine Nitrate Negative (Negative) 10/12/23 03:55 Urine Bilirubin Neg (Negative) 10/12/23 03:55 Urine Urobilinogen Neg mg/dL (Negative) 10/12/23 03:55 Ur Leukocyte Esterase 2+ (Negative) H 10/12/23 03:55 Urine RBC 15-25 /hpf (0-2) H 10/12/23 03:55 Urine WBC 55-80 /hpf (0-5) H 10/12/23 03:55 Ur Squamous Epith Cells 0-4 /hpf (0-5) H 10/12/23 03:55 Ur Transition Epith Cell 0-4 /hpf 10/12/23 03:55 Amorphous Sediment Not Reportable 10/12/23 03:55 Urine Bacteria 3+ /hpf (NONE) H 10/12/23 03:55 Hyaline Casts 0-4 /lpf H 10/12/23 03:55 Urine Mucus 2+ /hpf 10/12/23 03:55 SARS-CoV-2 Ag (Rapid) negative (Negative) 10/19/23 09:00 Vitals Last Vital Signs Temp 97.5 F L 10/20/23 13:59 Pulse 88 10/20/23 13:59 Resp 20 H 10/20/23 13:59 BP 125/84 10/20/23 13:59 Pulse Ox 97 10/20/23 08:09 O2 Del Method Nasal Cannula 10/20/23 08:09 O2 Flow Rate 2 10/20/23 08:09 FiO2 30 10/20/23 00:27 Discharge Plan Discharge Patient Disposition: Xfer SNF Condition: Stable Prescriptions: New aspirin 81 mg Tablet,Delayed Release (Dr/Ec) 81 mg PO DAILY Qty: 30 0RF bumetanide 1 mg Tablet 2 mg PO BID Qty: 120 0RF fluconazole 200 mg tablet 200 mg PO DAILY Qty: 7 0RF midodrine 5 mg Tablet 5 mg PO TID PRN (Reason: SBP less than 110 mmhg) Qty: 15 0RF Eliquis 5 mg Tablet 2.5 mg PO BID@0900,2100 Qty: 60 0RF amiodarone 200 mg tablet 200 mg PO BID Qty: 60 0RF metoprolol tartrate 25 mg Tablet 50 mg PO BID@0900,2100 Qty: 60 0RF fluconazole 200 mg tablet 200 mg PO DAILY Qty: 6 0RF atorvastatin 40 mg Tablet 40 mg PO BEDTIME@20 Qty: 60 0RF Vitamin B-12 1,000 mcg Tablet 500 mcg PO DAILY@07 Qty: 30 0RF duloxetine 60 mg Capsule,Delayed Release(Dr/Ec) 60 mg PO DAILY@07 Qty: 30 0RF Continued nitroglycerin [Nitrostat] 0.4 mg tablet, sublingual 0.4 mg SUBLINGUAL Q5M PRN (Reason: Chest Pain) Qty: 30 3RF Rx Instructions: MAX 3 DOSES PER EPISODE levothyroxine [Euthyrox] 150 mcg tablet 150 mcg PO DAILY@06 calcium carbonate [Calcium 600] 600 mg calcium (1,500 mg) tablet 600 mg PO DAILY@07 hydrocodone-acetaminophen 5-325 mg tablet 1 tab PO TID PRN (Reason: Pain) cholecalciferol (vitamin D3) [Vitamin D3] 25 mcg (1,000 unit) Tablet 1,000 unit PO DAILY@07 docusate sodium [Stool Softener] 250 mg Capsule 250 mg PO DAILY@07 cyanocobalamin (vitamin B-12) [Vitamin B-12] 500 mcg Tablet 500 mcg PO DAILY@07 pantoprazole 40 mg tablet,delayed release (DR/EC) 40 mg PO BID pyridostigmine bromide 60 mg tablet 60 mg PO DAILY@07 glucose 4 gram tablet,chewable 4 g PO PRN PRN (Reason: Hypoglycemia) Trelegy Ellipta 200-62.5-25 mcg blister with device 1 inh INHALATION DAILY Qty: 28 0RF atorvastatin 80 mg tablet 80 mg PO BEDTIME@20 omega-3 fatty acids 1,000 mg Capsule 1,000 mg PO BEDTIME zinc acetate 50 mg (zinc) Capsule 50 mg PO DAILY@12 riboflavin (vitamin B2) [Vitamin B-2] 100 mg Tablet 100 mg PO DAILY@07 folic acid 1 mg tablet 1 mg PO DAILY@07 duloxetine 60 mg capsule,delayed release(DR/EC) 60 mg PO DAILY@07 insulin lispro [Humalog U-100 Insulin] 100 unit/mL Solution See Rx Instructions .ROUTE .COMPLEX MDD 40 Qty: 10 0RF Rx Instructions: per sliding scale with meals 150-200=2 units 201-250=4 units 251-300=6 units 301-350=8 units 351-400=10 units 401-450=12 units metolazone 2.5 mg Tablet See Rx Instructions .ROUTE .COMPLEX Rx Instructions: 2.5 mg orally twice weekly ON SUNDAY AND SUNDAY acetaminophen 325 mg Tablet 650 mg PO Q6H PRN (Reason: Pain) amiodarone 200 mg tablet 200 mg PO DAILY@07 meclizine 25 mg tablet 25 mg PO TID PRN (Reason: Nausea And Vomiting) bisacodyl [Dulcolax (bisacodyl)] 10 mg Suppository 10 mg IA DAILY PRN (Reason: if no bm x3 days ) nystatin [Nyamyc] 100,000 unit/gram powder See Rx Instructions .ROUTE .COMPLEX Rx Instructions: as directed every shift as needed (apply between thighs and affected areas twice a day as needed) Triad Wound Dressing Paste See Rx Instructions .ROUTE .COMPLEX Rx Instructions: as directed topically every shift,left buttuck/sacrum:cleanse with ns and baby oil apply triad q shift and bonnie methotrexate sodium 2.5 mg Tablet 15 mg PO Q7D Rx Instructions: on sat Vitamin B-6 250 mg Tablet 500 mg PO DAILY@08 Normal Saline Flush Syringe See Rx Instructions .ROUTE .COMPLEX Rx Instructions: flush iv with 5ml ns before and after use (SASH) Normal Saline Flush Syringe See Rx Instructions .ROUTE .COMPLEX Rx Instructions: 10ml injection every shift as needed (flush teetee-cath before and after use) Eliquis 2.5 mg Tablet 2.5 mg PO BID magnesium L-lactate 84 mg tablet extended release 84 mg PO DAILY@08 Changed metoprolol tartrate 25 mg tablet 50 mg PO BID 60 Days Qty: 120 0RF Lantus Solostar U-100 Insulin 100 unit/mL (3 mL) insulin pen 10 unit SUBCUT BEDTIME Qty: 15 0RF Discontinued furosemide [Lasix] 40 mg tablet 80 mg PO DAILY@08 Discharge Orders: Discharge Order (Routine); Ordered 10/20/23 Ordered By: Nav Delcid Referrals: [facility] [Outside] Davion Griggs MD [Primary Care Provider] - Shannan White FNP [Nurse Practitioner] - 11/01/23 1:30 pm Discharge Diet: Advance as tolerated and Diabetic Discharge Activity: Resume usual activity and As per PT/OT instructions Patient Instructions: Heart Failure (DC), Dialysis Diet (DC), Hemodialysis (DC), CHF Stoplight, Opioid Safety, Post Heart Attack Stoplight Discharge Attestations Time Spent in Discharge Care*: greater than 30 min Specific Discharge Activities: educating patient, educating and/or supporting family/caregiver, discussing with pcp/other providers, discussing with pillowcase cleaner/social workers/dc planners, documenting/other paperwork and evaluating patient/reviewing data Status at Discharge: Cognitive status at discharge: cognitively intact, Behavioral status at discharge: cooperative, Quality Metrics Clinical Quality Measures [ No reported AMI, CVA or VTE this stay] Coding Level of Care Code Acute Code for Chg Fwd Total time (in minutes) for Discharge: 35 Diagnoses End stage renal disease N18.6 Acute on chronic combined systolic and diastolic congestive heart failure I50.43 Heart failure type: combined systolic and diastolic Acute respiratory failure with hypoxia and hypercarbia J96.01; J96.02 NSTEMI (non-ST elevated myocardial infarction) I21.4 Atrial fibrillation with RVR I48.91
--- NOTE | 2023-10-20 14:59 | PC.NURSE ---
report called to [facility] longterm Talked to [facility] staff and give a hand-off report.
--- NOTE | 2023-10-20 15:00 | PC.NURSE ---
ready transport is not available when we called them for a transport, so we called the [facility] ambulance instead. Informed the correction in regards to this.
--- NOTE | 2023-10-20 15:41 | PC.NURSE ---
Discharge Note Patient discharged to SNF via [facility] accompanied by EMS personnel. Discharge instructions reviewed with patient and/or chain sales representative. Mobile pharmacy medications and/or prescriptions provided. Belongings/home medications returned.
== END 2023-10-20 15:43 | disposition skilled nursing facility (03) | DRG 280 ==
LOC: ER 01:35 → ICU 02:50 → CSU 10-16 20:49
PROVIDERS: Internal Medicine; Admitting Provider Internal Medicine; Emergency Provider Internal Medicine; PCP Family Medicine; Visit Provider Student in an Organized Health Care Education/Training Program
DX: I13.2 Hypertensive heart and chronic kidney disease with heart failure and with stage 5 chronic kidney disease, or end stage renal disease (principal); I50.43 Acute on chronic combined systolic (congestive) and diastolic (congestive) heart failure; I21.4 Non-ST elevation (NSTEMI) myocardial infarction; N18.6 End stage renal disease; J96.22 Acute and chronic respiratory failure with hypercapnia; J96.21 Acute and chronic respiratory failure with hypoxia; I48.20 Chronic atrial fibrillation, unspecified; N39.0 Urinary tract infection, site not specified; D84.9 Immunodeficiency, unspecified; E11.22 Type 2 diabetes mellitus with diabetic chronic kidney disease; Z99.2 Dependence on renal dialysis; I25.10 Atherosclerotic heart disease of native coronary artery without angina pectoris; J44.9 Chronic obstructive pulmonary disease, unspecified; E78.5 Hyperlipidemia, unspecified; F32.9 Major depressive disorder, single episode, unspecified; L89.159 Pressure ulcer of sacral region, unspecified stage; G89.29 Other chronic pain; M54.50 Low back pain, unspecified; Z86.16 Personal history of COVID-19; M06.042 Rheumatoid arthritis without rheumatoid factor, left hand; M06.041 Rheumatoid arthritis without rheumatoid factor, right hand; Z79.01 Long term (current) use of anticoagulants; M06.4 Inflammatory polyarthropathy; F41.9 Anxiety disorder, unspecified; B37.9 Candidiasis, unspecified; E03.9 Hypothyroidism, unspecified; K74.60 Unspecified cirrhosis of liver; Z87.891 Personal history of nicotine dependence; I45.10 Unspecified right bundle-branch block; I27.20 Pulmonary hypertension, unspecified; D63.1 Anemia in chronic kidney disease; E87.6 Hypokalemia; I95.9 Hypotension, unspecified
CPT/HCPCS: 31500; 36415; 36416; 36592; 36600; 51702; 71045; 78452; 80051; 80053; 81001; 82330; 82803; 82805; 82962; 83605; 83735; 83880; 84100; 84145; 84484; 85025; 85610; 85730; 87040; 87086; 87106; 87426; 90935; 93005; 93017; 93308; 93325; 94002; 94003; 94640; 94660; 94664; 94799; 96365; 96366; 96367; 96375; 96376; 97110; 97162; 97165; 97530; 97535; 99291; A9500; C9113; J0283; J0330; J1450; J1642; J1644; J1940; J1956; J2250; J2405; J2704; J2785; J3010; J3475; J3490; J7614; J7626; J7644; P9047; Q3014; Q4081

== ENCOUNTER → 2023-12-05 13:42 | Outpatient (BNVA) | payer MEDICARE, SELFPAY | PROVIDERS: PCP Family Medicine; Visit Provider Nurse Practitioner Family | DX: I10 Essential (primary) hypertension (principal); I50.30 Unspecified diastolic (congestive) heart failure; I48.20 Chronic atrial fibrillation, unspecified; I50.32 Chronic diastolic (congestive) heart failure; Z09 Encounter for follow-up examination after completed treatment for conditions other than malignant neoplasm; I45.2 Bifascicular block | CPT/HCPCS: 36415; 80048; 83880; 93005; 99214 ==

== ENCOUNTER 2023-12-15 07:25 | Emergency (ER) | payer MEDICARE, SELFPAY ==
[2023-12-15 07:27] VITALS: BP 135/81; PULSE 90; RESP 20; TEMP 36.7; O2SAT 97
--- NOTE | 2023-12-15 07:32 | ECG_ITS ---
[facility] Test Date: 2023-12-15 Pat Name: Myesha Parker Department: Room: Gender: Female Kinesiologist: : [id number] Requested By: Kenrick Al Order Number: [id number] Reading MD: Min Tipton M.D. Measurements Intervals [place] Rate: 98 P: 0 NM: 0 QRS: -85 QRSD: 174 T: 81 QT: 447 QTc: 571 Interpretive Statements ATRIAL FIBRILLATION RIGHT BUNDLE BRANCH BLOCK [120+ ms QRS DURATION, UPRIGHT V1, 40+ ms S IN I/aVL/V4/V5/V6] LEFT ANTERIOR FASCICULAR BLOCK [QRS AXIS <= -45, QR IN I, RS IN II] Compared to ECG 12/05/2023 13:46:53 Myocardial infarct finding no longer present Electronically Signed On 12-15-2023 9:19:09 CDT by Min Tipton M.D. [email or web address]
--- NOTE | 2023-12-15 07:32 | XRR_ITS ---
PROCEDURE INFORMATION: Exam: XR Chest Exam date and time: 12/15/2023 7:52 AM Age: 73 years old Clinical indication: Shortness of breath; Additional info: Dyspnea/cough/sob TECHNIQUE: Imaging protocol: Radiologic exam of the chest. Views: 1 view. COMPARISON: CR XR chest 1V portable [id number] 07/30/2023 3:06 PM FINDINGS: Tubes, catheters and devices: Large bore right-sided central venous line noted with the distal tip at the cavoatrial junction. Lungs: Bibasilar atelectasis and/or pulmonary edema. Pleural spaces: Moderate right-sided and small left-sided pleural effusions. Heart/Mediastinum: Enlarged cardiomediastinal silhouette similar to prior exam. Bones/joints: Unremarkable. XR/XR chest 1V portable [id number] IMPRESSION: 1. Enlarged cardiomediastinal silhouette similar to prior exam. 2. Moderate right-sided and small left-sided pleural effusions. 3. Bibasilar atelectasis and/or pulmonary edema.
--- NOTE | 2023-12-15 07:36 | ED_ITS ---
HPI - Chest Pain 2 General: Chief Complaint: Chest Pain Stated Complaint: chest pain/ sob Time Seen by Provider: 12/15/23 07:31 Source: patient Mode of arrival: EMS History of Present Illness: 73-year-old female with a history of cor onary disease history of chronic atrial fibrillation on anticoagulation presents emergency room from the retirement with complaint of chest discomfort. EMS reported they were told she woke up at 530 this morning with complaints of chest pain. We received a call from [facility] with a report regarding this patient around 645 she arrived here at 725. Patient tells me she had chest discomfort when she tried to go to sleep last night and woke up with it as well. She has known history of heart disease. She is on hemodialysis is due for dialysis today she also normally on oxygen at 4 L she had 3 L when I arrived in the room satting normally with the head of the bed elevated. In talking to her her biggest complaint seems to be more of the shortness of breath which is mostly resolved. She states she has no chest pain at this time MD complaint: chest pain Pertinent past history: coronary artery disease Onset (ago): minute(s) Timing of current episode: episodic Prior episodes: Yes Onset: during rest Pain location: substernal Relieving factors: nothing Exacerbating factors: nothing Associated symptoms: Reports dyspnea; Deny abdominal pain, diaphoresis, fever(s), leg edema, nausea, palpitations, sense of impending doom, syncope or vomiting Treatment prior to arrival: none Review of Systems 2 Const: Denies: fever(s), chills or diaphoresis Card: Reports: chest pain; Denies: palpitations or syncope Resp: Reports: dyspnea; Denies: productive cough, non-productive cough or wheezing GI: Denies: abdominal pain, nausea or vomiting : Denies: dysuria, urinary frequency or urinary urgency Musc: Denies: neck pain or back pain Skin/Breast: Denies: rash PFSH ED 2 PFSH: Medical History UTI (urinary tract infection) Major depressive disorder, recurrent episode, moderate with anxious distress Duodenal ulcer due to bacteria Psychiatric care Coronary artery disease Immunization counseling High risk medication use Chronic knee pain Chronic low back pain COVID-14 August 2020 Seronegative rheumatoid arthritis of both hands Intermittent atrial fibrillation Poorly controlled diabetes mellitus CHF exacerbation Narrow complex tachycardia Inflammatory arthritis Osteoarthritis of knees, bilateral Fibromyalgia Lung nodule Unstable angina Low back pain of over 3 months duration Urgency incontinence Left renal mass COPD (chronic obstructive pulmonary disease) Oxygen dependent, 2 L at baseline Anxiety and depression Hypothyroidism Liver cirrhosis Hyperlipidemia Hypertension Recurrent UTI Surgical History History of cholecystectomy History of thyroid surgery History of cardiac cath History of hysterectomy History of knee replacement Family History Other CAD (coronary artery disease) Cancer Denies family history of Anesthesia complication Bleeding disorder Social History Smoking and tobacco/nicotine status: former use of tobacco/nicotine Quit status (tobacco/nicotine): has quit using Year quit tobacco: 2005 Second hand smoke exposure: No Alcohol intake: never Substance/Drug Use: never Adopted: No Caregiver/support person: No Lives independently: No Household members: spouse Marital status: Current occupational status: retired Current gender identity: Female Physical Exam 2 Const: COMMON NORMALS: no acute distress GENERAL APPEARANCE: cooperative and comfortable ORIENTATION/CONSCIOUSNESS: Yes awake, Yes oriented to person, Yes oriented to place and Yes oriented to time HENMT: COMMON NORMALS: normocephalic, atraumatic and hearing grossly normal bilaterally HEAD & SCALP: normocephalic and atraumatic Resp: COMMON NORMALS: normal respiratory effort, No retractions, No use of accessory muscles and clear to auscultation bilaterally AUSCULTATION: clear to auscultation bilaterally Cardio: COMMON NORMALS: regular rate, regular rhythm and No murmurs present (Cardio) RATE: regular rate RHYTHM: regular rhythm GI: COMMON NORMALS: Soft to palpation and No hepatosplenomegaly present A USCULTATION: Yes normoactive bowel sounds PALPATION: Yes Soft to palpation, No Tenderness to palpation present (GI), No Guarding due to palpation present (GI) and Yes No hepatosplenomegaly present Extremity: COMMON NORMALS: normal to inspection, capillary refill normal, no clubbing, cyanosis or edema, no calf tenderness and no pedal edema Neuro: SENSORIUM/ORIENTATION: Yes oriented to person, Yes oriented to place and Yes oriented to time Skin: COMMON NORMALS: no rashes or lesions noted GENERAL SKIN EXAM: no rashes or lesions noted Course 2 Vital Signs: Vital signs: Vital Signs Temperature 98.1 F 12/15/23 07:27 Pulse Rate 94 12/15/23 11:16 Respiratory Rate 20 H 12/15/23 07:27 Blood Pressure 133/95 12/15/23 11:16 Pulse Oximetry 100 12/15/23 11:16 Oxygen Delivery Me thod Nasal Cannula 12/15/23 11:16 Oxygen Flow Rate 2 12/15/23 11:16 MDM - Chest Pain Medical Decision Making Patient maintaining her percent oxygen sats on 2 L which is at her baseline chest x-ray does show increased pleural effusion and pulmonary edema the best treatment for this this morning is going to be her dialysis. No sign of acute coronary syndrome at this point troponins are elevated but her. Her to our does not show a significant delta. EKG did not show any acute ST changes. Will discharge the patient from here to dialysis that will be the most definitive care for her current problem. Return if has worsening or changes symptoms. Lab Data 12/15/23 07:49 12/15/23 07:49 Radiology Impressions Chest X-Ray 12/15/23 07:32 IMPRESSION: 1. Enlarged cardiomediastinal silhouette similar to prior exam. 2. Moderate right-sided and small left-sided pleural effusions. 3. Bibasilar atelectasis and/or pulmonary edema. Laboratory Results WBC 11.09 10^3/uL (3.29-11.43) 12/15/23 07:49 RBC 2.76 10^6/uL (3.85-5.65) L 12/15/23 07:49 Hgb 8.80 g/dL (11.27-16.99) L 12/15/23 07:49 Hct 28.0 % (36-47) L 12/15/23 07:49 MCV 101.4 fl (85-98) H 12/15/23 07:49 MCH 31.9 pg (27-33) 12/15/23 07:49 MCHC 31.4 g/dL (30-55) 12/15/23 07:49 RDW 19.1 % (12.1-15.1) H 12/15/23 07:49 Plt Count 278 10^3/cmm (157-399) 12/15/23 07:49 MPV 9.2 fL (7.4-10.4) 12/15/23 07:49 Neut % (Auto) 79.2 % 12/15/23 07:49 Lymph % (Auto) 7.4 % 12/15/23 07:49 [place] % (Auto) 6.4 % 12/15/23 07:49 Eos % (Auto) 2.4 % 12/15/23 07:49 Baso % (Auto) 1.2 % 12/15/23 07:49 Neut # (Auto) 8.78 10^3/uL (1.8-7.7) H 12/15/23 07:49 Lymph # (Auto) 0.8 10^3/uL (0.8-4.8) 12/15/23 07:49 [place] # (Auto) 0.7 10^3/uL (0.2-0.9) 12/15/23 07:49 Eos # (Auto) 0.3 10^3/uL (0.0-0.8) 12/15/23 07:49 Baso # (Auto) 0.1 10^3/uL (0.0-0.1) 12/15/23 07:49 Nucleated RBC % (auto) 0 % 12/15/23 07:49 Nucleated RBCs # 0.0 /100WBC 12/15/23 07:49 Sodium 139 mmol/L (136-145) 12/15/23 07:49 Potassium 3.4 mmol/L (3.5-5.1) L 12/15/23 07:49 Chloride 95 mmol/L (98-107) L 12/15/23 07:49 Carbon Dioxide 34 mmol/L (22-29) H 12/15/23 07:49 Anion Gap 13.4 (5-19) 12/15/23 07:49 BUN 31 mg/dL (8-23) H 12/15/23 07:49 Creatinine 1.6 mg/dL (0.5-0.9) H 12/15/23 07:49 GFR Calculation Not Reportable 12/15/23 07:49 Glucose 157 mg/dL (65-115) H 12/15/23 07:49 Calculated Osmolality 298 mOsm/kg (285-295) H 12/15/23 07:49 Calcium 9.6 mg/dL (8.5-10.5) 12/15/23 07:49 Magnesium 1.4 mg/dL (1.7-2.3) L 12/15/23 07:49 Total Bilirubin 0.3 mg/dL (0.15-1.2) 12/15/23 07:49 AST 34 U/L (0-32) H 12/15/23 07:49 ALT 35 U/L (0-33) H 12/15/23 07:49 Alkaline Phosphatase 187 U/L (35-105) H 12/15/23 07:49 Troponin T Baseline 72 ng/L (0-10) H 12/15/23 07:49 Troponin T 120 Minute 67.10 ng/L (0-10) H 12/15/23 10:27 Delta Troponin T -4.90 ABS# (0-10) L 12/15/23 10:27 Total Protein 7.0 g/dL (6.6-8.7) 12/15/23 07:49 Albumin 3.1 g/dL (3.5-5.2) L 12/15/23 07:49 Globulin 3.9 g/dL (1.3-4.6) 12/15/23 07:49 Urine Color Yellow (Yellow) 12/15/23 08:49 Urine Appearance Sl hazy (CLEAR) A 12/15/23 08:49 Urine pH 5 (5-7) 12/15/23 08:49 Ur Specific [place] 1.015 (1.005-1.030) 12/15/23 08:49 Urine Protein Neg (Negative) 12/15/23 08:49 Urine Glucose (UA) Norm (Normal) 12/15/23 08:49 Urine Ketones Negative (Negative) 12/15/23 08:49 Urine Blood Neg (Negative) 12/15/23 08:49 Urine Nitrate Negative (Negative) 12/15/23 08:49 Urine Bilirubin Neg (Negative) 12/15/23 08:49 Urine Urobilinogen Norm mg/dL (Negative) 12/15/23 08:49 Ur Leukocyte Esterase Negative (Negative) 12/15/23 08:49 Urine RBC None /hpf (0-2) 12/15/23 08:49 Urine WBC 25-40 /hpf (0-5) H 12/15/23 08:49 Ur Squamous Epith Cells 10-15 /hpf (0-5) H 12/15/23 08:49 Amorphous Sediment Not Reportable 12/15/23 08:49 Urine Bacteria Trace /hpf (NONE) 12/15/23 08:49 All radiology interpretation(s) finalized by discharge Discharge Plan Discharge Patient Disposition: Home Clinical Impression: CHF (congestive heart failure), ESRD (end stage renal disease) on dialysis, Anemia, Physical deconditioning Condition: Stable Prescriptions: No Action nitroglycerin [Nitrostat] 0.4 mg tablet, sublingual 0.4 mg SUBLINGUAL Q5M PRN (Reason: Chest Pain) Qty: 30 3RF Rx Instructions: MAX 3 DOSES PER EPISODE levothyroxine [Euthyrox] 150 mcg tablet 150 mcg PO DAILY@06 calcium carbonate [Calcium 600] 600 mg calcium (1,500 mg) tablet 600 mg PO DAILY@07 melatonin 1 mg tablet 1 mg PO BEDTIME hydrocodone-acetaminophen 5-325 mg tablet 1 tab PO TID PRN (Reason: Pain) cholecalciferol (vitamin D3) [Vitamin D3] 25 mcg (1,000 unit) Tablet 1,000 unit PO DAILY@07 cyanocobalamin (vitamin B-12) [Vitamin B-12] 500 mcg Tablet 500 mcg PO DAILY@07 pantoprazole 40 mg tablet,delayed release (DR/EC) 40 mg PO BID pyridostigmine bromide 60 mg tablet 60 mg PO DAILY@07 glucose 4 gram tablet,chewable 4 g PO PRN PRN (Reason: Hypoglycemia) Trelegy Ellipta 200-62.5-25 mcg blister with device 1 inh INHALATION DAILY Qty: 28 0RF omega-3 fatty acids 1,000 mg Capsule 1,000 mg PO BEDTIME folic acid 1 mg tablet 1 mg PO DAILY@07 duloxetine 60 mg capsule,delayed release(DR/EC) 60 mg PO DAILY@07 insulin lispro [Humalog U-100 Insulin] 100 unit/mL Solution See Rx Instructions .ROUTE .COMPLEX MDD 40 Qty: 10 0RF Rx Instructions: per sliding scale with meals 150-200=2 units 201-250=4 units 251-300=6 units 301-350=8 units 351-400=10 units 401-450=12 units metolazone 2.5 mg Tablet See Rx Instructions .ROUTE .COMPLEX Rx Instructions: 2.5 mg orally twice weekly ON SUNDAY AND SUNDAY acetaminophen 325 mg Tablet 650 mg PO Q6H PRN (Reason: Pain) amiodarone 200 mg tablet 200 mg PO DAILY@07 meclizine 25 mg tablet 25 mg PO TID PRN (Reason: Nausea And Vomiting) bisacodyl [Dulcolax (bisacodyl)] 10 mg Suppository 10 mg UT DAILY PRN (Reason: if no bm x3 days ) nystatin [Nyamyc] 100,000 unit/gram powder See Rx Instructions .ROUTE .COMPLEX Rx Instructions: as directed every shift as needed (apply between thighs and affected areas twice a day as needed) Triad Wound Dressing Paste See Rx Instructions .ROUTE .COMPLEX Rx Instructions: as directed topically every shift,left buttuck/sacrum:cleanse with ns and baby oil apply triad q shift and bonnie methotrexate sodium 2.5 mg Tablet 6 mg PO Q7D Rx Instructions: on sat pyridoxine (vitamin B6) [Vitamin B-6] 250 mg Tablet 500 mg PO DAILY@08 magnesium L-lactate 84 mg tablet extended release 84 mg PO DAILY@08 aspirin 81 mg Tablet,Delayed Release (Dr/Ec) 81 mg PO DAILY Qty: 30 0RF midodrine 5 mg Tablet 5 mg PO TID PRN (Reason: SBP less than 110 mmhg) Qty: 15 0RF atorvastatin 40 mg Tablet 40 mg PO BEDTIME@20 Qty: 60 0RF bumetanide 2 mg tablet See Rx Instructions .ROUTE .COMPLEX Rx Instructions: TAKE 2 MG BY MOUTH TWICE DAILY ON SUNDAY, SUNDAY, SUNDAY, AND SUNDAY. Papaya Enzyme Tablet,Chewable 4 tab PO TID metoprolol tartrate 50 mg tablet 50 mg PO BID Miralax 17 gram/dose Powder See Rx Instructions .ROUTE .COMPLEX Rx Instructions: MIX 17G (1 CAPFUL) IN 8 OUNCES LIQUID AND DRINK ENTIRE LIQUID DAILY. Lantus Solostar U-100 Insulin 100 unit/mL (3 mL) insulin pen 12 unit SUBCUT BEDTIME Discharge Orders: Discharge ED (Routine); Ordered 12/15/23 Ordered By: Kenrick Treviño Referrals: Davion Griggs MD [Primary Care Provider] - Patient Instructions: Opioid Safety, Pain Management Activity Restrictions/Additional Instructions: Thank you for choosing [facility] for your healthcare needs today. Please realize this is an emergency room and that we are providing you with a medical screening exam and this may not be complete and all inclusive of all the testing and or work up that you may need to determine your ailment or severity of your illness. It is very important that you follow up as instructed or that you return to the Emergency Department should you have concerns or if your condition changes or worsens in any way. You were seen today for shortness of breath. Cardiac enzymes and EKG did not show acute changes chest x-ray showed some mild CHF. Best treatment for this will be her dialysis which is scheduled today recommend that he proceed to dialysis after discharge Coding Level of Care Code ED Sand Worker for Dougie Samson
[2023-12-15 07:38] VITALS: BP 133/106; PULSE 100; O2SAT 95
[2023-12-15 07:55] LABS: Basophils # 0.1 10^3/uL (0.0-0.1); Basophils % 1.2 %; Eosinophils # 0.3 10^3/uL (0.0-0.8); Eosinophils % 2.4 %; Lymphocytes # 0.8 10^3/uL (0.8-4.8); Lymphocytes % 7.4 %; Mean Corpuscular HGB Conc 31.4 g/dL (30-55); Mean Corpuscular Hemoglobin 31.9 pg (27-33); Mean Corpuscular Volume 101.4 fl (85-98); Mean Platelet Volume 9.2 fL (7.4-10.4); Monocytes # 0.7 10^3/uL (0.2-0.9); Monocytes % 6.4 %; Neutrophils # 8.78 10^3/uL (1.8-7.7); Neutrophils % 79.2 %; Nucleated Red Blood Cells % 0 %; Platelet Count 278 10^3/cmm (157-399); Red Blood Count 2.76 10^6/uL (3.85-5.65); Red Cell Distribution Width 19.1 % (12.1-15.1); White Blood Count 11.09 10^3/uL (3.29-11.43)
[2023-12-15 08:08] VITALS: PULSE 103; O2SAT 100
[2023-12-15 08:20] LABS: Alanine Aminotransferase 35 U/L (0-33); Albumin Level 3.1 g/dL (3.5-5.2); Alkaline Phosphatase 187 U/L (35-105); Anion Gap 13.4 (5-19); Aspartate Amino Transferase 34 U/L (0-32); Blood Urea Nitrogen 31 mg/dL (8-23); Calcium 9.6 mg/dL (8.5-10.5); Carbon Dioxide 34 mmol/L (22-29); Chloride 95 mmol/L (98-107); Globulin 3.9 g/dL (1.3-4.6); Glucose 157 mg/dL (65-115); Magnesium 1.4 mg/dL (1.7-2.3); Osmolality Calculated 298 mOsm/kg (285-295); Potassium 3.4 mmol/L (3.5-5.1); Sodium 139 mmol/L (136-145); Total Bilirubin 0.3 mg/dL (0.15-1.2); Troponin(5th) Baseline 72 ng/L (0-10)
[2023-12-15 08:23] LABS: Creatinine Clr Calc Pharmacy 33.8057
--- NOTE | 2023-12-15 08:25 | PC.PHAR ---
PT IS FROM [facility]
[2023-12-15 09:15] LABS: Add Urine Culture? No; Add Urine Microscopic? YES; Bacteria Urine TRACE /hpf; Bilirubin Urine Neg (Negative); Blood Urine Neg (Negative); Glucose Urine UA Norm (Normal); Ketones Urine Negative (Negative); Leukocyte Esterase Urine Negative (Negative); Nitrate Urine Negative (Negative); Protein Urine Neg (Negative); Specific Gravity, Urine 1.015 (1.005-1.030); Urine Appearance SL Hazy (CLEAR); Urine Color Yellow (Yellow); Urobilinogen Urine Norm (Negative); WBC Urine 25-40 /hpf (0-5); pH Urine 5 (5-7)
--- NOTE | 2023-12-15 09:32 | ECG_ITS ---
[facility] Test Date: 2023-12-15 Pat Name: Myesha Parker Department: Room: Gender: Female [employer] T[employer]: : 1950 Requested By: Kenrick Al Order Number: [id number] Reading MD: Min Tipton M.D. Measurements Intervals [place] Rate: 97 P: 0 [place]: 0 QRS: -87 QRSD: 173 T: 75 QT: 446 QTc: 569 Interpretive Statements ATRIAL FIBRILLATION RIGHT BUNDLE BRANCH BLOCK [120+ ms QRS DURATION, UPRIGHT V1, 40+ ms S IN I/aVL/V4/V5/V6] LEFT ANTERIOR FASCICULAR BLOCK [QRS AXIS <= -45, QR IN I, RS IN II] Compared to ECG 12/15/2023 07:38:31 No significant changes Electronically Signed On 12-15-2023 9:21:19 CDT by iMn Tipton M.D. [email or web address]
[2023-12-15 10:09] VITALS: PULSE 97; O2SAT 98
[2023-12-15 11:16] VITALS: BP 133/95; PULSE 94; O2SAT 100
== END 2023-12-15 12:10 | disposition home or self-care (01) ==
PROVIDERS: Emergency Provider Family Medicine; PCP Family Medicine
DX: I13.2 Hypertensive heart and chronic kidney disease with heart failure and with stage 5 chronic kidney disease, or end stage renal disease (principal); E11.22 Type 2 diabetes mellitus with diabetic chronic kidney disease; N18.6 End stage renal disease; I50.9 Heart failure, unspecified; Z99.2 Dependence on renal dialysis; D64.9 Anemia, unspecified; R53.81 Other malaise; Z79.82 Long term (current) use of aspirin; Z79.4 Long term (current) use of insulin; Z87.891 Personal history of nicotine dependence; J44.9 Chronic obstructive pulmonary disease, unspecified; J44.1 Chronic obstructive pulmonary disease with (acute) exacerbation; E78.5 Hyperlipidemia, unspecified
CPT/HCPCS: 36415; 71045; 80053; 81001; 83735; 84484; 85025; 93005; 99285

== ENCOUNTER 2023-12-18 11:58 | Inpatient (IN) | payer MEDICARE, SELFPAY ==
[2023-12-18] VITALS (9 sets, daily range): BP systolic 119–157; BP diastolic 64–92; PULSE 86–114; RESP 16–17; TEMP 36.3–36.7; O2SAT 90–100; BMI 33.5
--- NOTE | 2023-12-18 12:07 | ED_ITS ---
HPI - Nausea/Vomiting/Diarrhea 2 General: Chief complaint: Nausea/Vomiting/Diarrhea Stated complaint: N/V/D Time Seen by Provider: 12/18/23 12:03 History of Present Illness: 73-year-old female with history of end-s tage renal disease on dialysis, hypothyroidism, hypertension, diabetes who presents to the emergency room by ambulance with weakness and diarrhea. She says she has diffuse abdominal cramping. She can normally walk but was so weak today that she could not get up to walk and did not go to dialysis. She thinks she may have been on some antibiotics recently. Apparently if she moves at all she has fecal incontinence. No known fevers. No chest pain. No shortness of breath. No altered mental status. No focal motor deficits. Review of Systems 2 Narrative: Constitutional symptoms: Negative except as documented in HPI. Skin symptoms: Negative except as documented in HPI. Eye symptoms: Negative except as documented in HPI. ENMT symptoms: Negative except as documented in HPI. Respiratory symptoms: Negative except as documented in HPI. Cardiovascular symptoms: Negative except as documented in HPI. Gastrointestinal symptoms: Negative except as documented in HPI. Genitourinary symptoms: Negative except as documented in HPI. Musculoskeletal symptoms: Negative except as documented in HPI. Neurologic symptoms: Negative except as documented in HPI. Psychiatric symptoms: Negative except as documented in HPI. Endocrine symptoms: Negative except as documented in HPI. PFSH ED 2 PFSH: Medical History UTI (urinary tract infection) Major depressive disorder, recurrent episode, moderate with anxious distress Duodenal ulcer due to bacteria Psychiatric care Coronary artery disease Immunization counseling High risk medication use Chronic knee pain Chronic low back pain COVID-14 August 2020 Seronegative rheumatoid arthritis of both hands Intermittent atrial fibrillation Poorly controlled diabetes mellitus CHF exacerbation Narrow complex tachycardia Inflammatory arthritis Osteoarthritis of knees, bilateral Fibromyalgia Lung nodule Unstable angina Low back pain of over 3 months duration Urgency incontinence Left renal mass COPD (chronic obstructive pulmonary disease) Oxygen dependent, 2 L at baseline Anxiety and depression Hypothyroidism Liver cirrhosis Hyperlipidemia Hypertension Recurrent UTI Surgical History History of cholecystectomy History of thyroid surgery History of cardiac cath History of hysterectomy History of knee replacement Family History Other CAD (coronary artery disease) Cancer Denies family history of Anesthesia complication Bleeding disorder Social History Smoking and tobacco/nicotine status: former use of tobacco/nicotine Quit status (tobacco/nicotine): has quit using Year quit tobacco: 2005 Second hand smoke exposure: No Alcohol intake: never Substance/Drug Use: never Adopted: No Caregiver/support person: No Lives independently: No Household members: spouse Marital status: Current occupational status: retired Current gender identity: Female Physical Exam 2 Narrative: EXAM NARRATIVE: General: Alert, no acute distress. Skin: Warm, dry. Head: Normocephalic, atraumatic. Neck: Supple, trachea midline. Eye: Extraocular movements are intact. Ears, nose, mouth and throat: Tacky oral mucosa Cardiovascular: Regular, Normal peripheral perfusion. Respiratory: Lungs are clear to auscultation, respirations are non-labored, breath sounds are equal, Symmetrical chest wall expansion. Gastrointestinal: Soft, Nontender, Non distended, Normal bowel sounds. Musculoskeletal: Normal ROM, no deformity. Neurological: Alert and oriented, No focal neurological deficit observed. Generalized weakness but nothing focal Psychiatric: Cooperative, appropriate mood & affect. Course 2 Vital Signs: Vital signs: Vital Signs Temperature 98.1 F 12/18/23 12:06 Pulse Rate 94 12/18/23 13:14 Respiratory Rate 16 12/18/23 12:06 Blood Pressure 157/92 12/18/23 13:14 Pulse Oximetry 99 12/18/23 13:14 Oxygen Delivery Me thod Room Air 12/18/23 13:14 MDM - Nausea/Vomiting/Diarrhea Medical Decision Making Medical decision making: Differential diagnosis for patient with nausea and diarrhea: including but not limited to and based on the above HPI, review of systems and physical exam: Gastroenteritis. Gastritis. Enteritis. Either bacterial or viral. C. diff infection. Small bowel obstruction. Crohn's flare. Pancreatitis. Also concern for secondary dehydration and/or urinary tract infection. In this patient with recent antibiotic use and severe diarrhea C. difficile is very high on my differential. Also would have concern for renal insufficiency/dehydration. Orders placed to evaluate differential diagnosis based on the above differential, HPI and physical exam Lab Review: Laboratory results were reviewed and interpreted by myself the emergency room physician. Patient does not have leukocytosis, however she does have C. difficile positive stool. This was resulted after the patient had been admitted. She is already been started on oral vancomycin. Her hemoglobin is stable at 9.6. Patient is on dialysis and today her BUN and creatinine are 48 and 1.9. Fluids have been given. EKG: Time 1322 rate 97. Atrial fibrillation with controlled rate, No ST-T changes, no ectopy, This was reviewed and interpreted by myself the ER physician at 1325. I reviewed the patient's medical record. Reexamination: Patient remains stable. She is extremely weak. She is somewhat somnolent. She missed dialysis today. Her blood pressure does remain normal. She has hypokalemia and hypomagnesemia. Potassium is 2.5. Magnesium is 1.6. Medical Records I reviewed the patient's medical records. Lab Data 12/18/23 12:28 12/18/23 12:28 Laboratory Results WBC 9.62 10^3/uL (3.29-11.43) 12/18/23 12:28 RBC 3.06 10^6/uL (3.85-5.65) L 12/18/23 12:28 Hgb 9.60 g/dL (11.27-16.99) L 12/18/23 12:28 Hct 30.5 % (36-47) L 12/18/23 12:28 MCV 99.7 fl (85-98) H 12/18/23 12:28 MCH 31.4 pg (27-33) 12/18/23 12:28 MCHC 31.5 g/dL (30-55) 12/18/23 12:28 RDW 19.2 % (12.1-15.1) H 12/18/23 12:28 Plt Count 229 10^3/cmm (157-399) 12/18/23 12:28 MPV 9.3 fL (7.4-10.4) 12/18/23 12:28 Neut % (Auto) 96.4 % 12/18/23 12:28 Lymph % (Auto) 1.5 % 12/18/23 12:28 Rush % (Auto) 1.2 % 12/18/23 12:28 Eos % (Auto) 0.0 % 12/18/23 12:28 Baso % (Auto) 0.2 % 12/18/23 12:28 Neut # (Auto) 9.27 10^3/uL (1.8-7.7) H 12/18/23 12:28 Lymph # (Auto) 0.1 10^3/uL (0.8-4.8) L 12/18/23 12:28 Rush # (Auto) 0.1 10^3/uL (0.2-0.9) L 12/18/23 12:28 Eos # (Auto) 0.0 10^3/uL (0.0-0.8) 12/18/23 12:28 Baso # (Auto) 0.0 10^3/uL (0.0-0.1) 12/18/23 12:28 Nucleated RBC % (auto) 0 % 12/18/23 12:28 Nucleated RBCs # 0.0 /100WBC 12/18/23 12:28 Sodium 139 mmol/L (136-145) 12/18/23 12:28 Potassium 2.5 mmol/L (3.5-5.1) L* 12/18/23 12:28 Chloride 97 mmol/L (98-107) L 12/18/23 12:28 Carbon Dioxide 29 mmol/L (22-29) 12/18/23 12:28 Anion Gap 15.5 (5-19) 12/18/23 12:28 BUN 48 mg/dL (8-23) H 12/18/23 12:28 Creatinine 1.9 mg/dL (0.5-0.9) H 12/18/23 12:28 GFR Calculation Not Reportable 12/18/23 12:28 Glucose 161 mg/dL (65-115) H 12/18/23 12:28 Calculated Osmolality 304 mOsm/kg (285-295) H 12/18/23 12:28 Calcium 9.3 mg/dL (8.5-10.5) 12/18/23 12:28 Phosphorus 5.1 mg/dL (2.5-4.5) H 12/18/23 12:28 Magnesium 1.4 mg/dL (1.7-2.3) L 12/18/23 12:28 Total Bilirubin 0.5 mg/dL (0.15-1.2) 12/18/23 12:28 AST 48 U/L (0-32) H 12/18/23 12:28 ALT 38 U/L (0-33) H 12/18/23 12:28 Alkaline Phosphatase 154 U/L (35-105) H 12/18/23 12:28 Total Protein 6.6 g/dL (6.6-8.7) 12/18/23 12:28 Albumin 2.9 g/dL (3.5-5.2) L 12/18/23 12:28 Globulin 3.7 g/dL (1.3-4.6) 12/18/23 12:28 C. difficile (PCR) Positive (Negative) H 12/18/23 12:41 No radiology studies performed this visit Other Data Assessment and plan: C. difficile colitis -Oral vancomycin ordered by the hospitalist. End-stage renal disease on dialysis. -Patient has had large volume output and is somewhat dehydrated. 500 mL of saline ordered in the emergency room. Potassium is low. No need for urgent or emergent dialysis at this time. Dehydration Careful hydration. 500 mL normal saline bolus here.- Hypokalemia -Careful replacement of potassium. 20 mill equivalents of IV potassium Hypomagnesemia -2 g IV magnesium -I discussed the patient with the hospitalist on-call who is admitting the patient. - Discussed findings and plan with patient. Answered any questions. - All laboratory values were reviewed and interpreted personally by myself, the ER physician - All imaging was reviewed and interpreted personally by myself, the ER physician. - Evaluation and treatment of this problem were appropriate in the emergency setting -I spent a total of >35 minutes of critical care time managing the patient, independent of any other practitioner. -The time involved in the performance of separately reportable procedures was not counted towards critical care time. Discharge Plan Discharge Clinical Impression: C. difficile colitis, Dehydration, Hypokalemia, End stage renal disease on dialysis, Hypomagnesemia, Hyperphosphatemia, Generalized weakness Condition: Stable Prescriptions: No Action nitroglycerin [Nitrostat] 0.4 mg tablet, sublingual 0.4 mg SUBLINGUAL Q5M PRN (Reason: Chest Pain) Qty: 30 3RF Rx Instructions: MAX 3 DOSES PER EPISODE levothyroxine [Euthyrox] 150 mcg tablet 150 mcg PO DAILY@06 calcium carbonate [Calcium 600] 600 mg calcium (1,500 mg) tablet 600 mg PO DAILY@07 melatonin 1 mg tablet 1 mg PO BEDTIME hydrocodone-acetaminophen 5-325 mg tablet 1 tab PO TID PRN (Reason: Pain) cholecalciferol (vitamin D3) [Vitamin D3] 25 mcg (1,000 unit) Tablet 1,000 unit PO DAILY@07 pantoprazole 40 mg tablet,delayed release (DR/EC) 40 mg PO BID glucose 4 gram tablet,chewable 4 g PO PRN PRN (Reason: Hypoglycemia) Trelegy Ellipta 200-62.5-25 mcg blister with device 1 inh INHALATION DAILY Qty: 28 0RF duloxetine 60 mg capsule,delayed release(DR/EC) 60 mg PO DAILY@07 insulin lispro [Humalog U-100 Insulin] 100 unit/mL Solution See Rx Instructions .ROUTE .COMPLEX MDD 40 Qty: 10 0RF Rx Instructions: per sliding scale with meals 150-200=2 units 201-250=4 units 251-300=6 units 301-350=8 units 351-400=10 units 401-450=12 units metolazone 2.5 mg Tablet See Rx Instructions .ROUTE .COMPLEX Rx Instructions: 2.5 mg orally twice weekly ON SUNDAY AND SUNDAY acetaminophen 325 mg Tablet 650 mg PO Q6H PRN (Reason: Pain) amiodarone 200 mg tablet 200 mg PO DAILY@07 meclizine 25 mg tablet 25 mg PO TID PRN (Reason: Nausea And Vomiting) bisacodyl [Dulcolax (bisacodyl)] 10 mg Suppository 10 mg NE DAILY PRN (Reason: if no bm x3 days ) nystatin [Nyamyc] 100,000 unit/gram powder See Rx Instructions .ROUTE .COMPLEX Rx Instructions: as directed every shift as needed (apply between thighs and affected areas twice a day as needed) methotrexate sodium 2.5 mg Tablet 6 mg PO Q7D Rx Instructions: on sat pyridoxine (vitamin B6) [Vitamin B-6] 250 mg Tablet 500 mg PO DAILY@08 magnesium L-lactate 84 mg tablet extended release 84 mg PO DAILY@08 aspirin 81 mg Tablet,Delayed Release (Dr/Ec) 81 mg PO DAILY Qty: 30 0RF midodrine 5 mg Tablet 5 mg PO TID PRN (Reason: SBP less than 110 mmhg) Qty: 15 0RF atorvastatin 40 mg Tablet 40 mg PO BEDTIME@20 Qty: 60 0RF bumetanide 2 mg tablet See Rx Instructions .ROUTE .COMPLEX Rx Instructions: TAKE 2 MG BY MOUTH TWICE DAILY ON SUNDAY, SUNDAY, SUNDAY, AND SUNDAY. metoprolol tartrate 50 mg tablet 50 mg PO BID polyethylene glycol 3350 [Miralax] 17 gram/dose Powder See Rx Instructions .ROUTE .COMPLEX Rx Instructions: MIX 17G (1 CAPFUL) IN 8 OUNCES LIQUID AND DRINK ENTIRE LIQUID DAILY. insulin glargine [Lantus Solostar U-100 Insulin] 100 unit/mL (3 mL) insulin pen 12 unit SUBCUT BEDTIME Referrals: Davion Griggs MD [Primary Care Provider] - Coding Level of Care Code ED Corporate Director Of Human Resources for Dougie Samson
[2023-12-18 12:43] LABS: Basophils % 0.2 %; Hematocrit 30.5 % (36-47); Lymphocytes # 0.1 10^3/uL (0.8-4.8); Lymphocytes % 1.5 %; Mean Corpuscular HGB Conc 31.5 g/dL (30-55); Mean Corpuscular Hemoglobin 31.4 pg (27-33); Mean Corpuscular Volume 99.7 fl (85-98); Mean Platelet Volume 9.3 fL (7.4-10.4); Monocytes # 0.1 10^3/uL (0.2-0.9); Monocytes % 1.2 %; Neutrophils # 9.27 10^3/uL (1.8-7.7); Neutrophils % 96.4 %; Nucleated Red Blood Cells % 0 %; Platelet Count 229 10^3/cmm (157-399); Red Blood Count 3.06 10^6/uL (3.85-5.65); Red Cell Distribution Width 19.2 % (12.1-15.1); White Blood Count 9.62 10^3/uL (3.29-11.43)
[2023-12-18 13:02] LABS: Alanine Aminotransferase 38 U/L (0-33); Albumin Level 2.9 g/dL (3.5-5.2); Alkaline Phosphatase 154 U/L (35-105); Anion Gap 15.5 (5-19); Aspartate Amino Transferase 48 U/L (0-32); Blood Urea Nitrogen 48 mg/dL (8-23); Calcium 9.3 mg/dL (8.5-10.5); Carbon Dioxide 29 mmol/L (22-29); Chloride 97 mmol/L (98-107); Creatinine Clr Calc Pharmacy 27.0025; Globulin 3.7 g/dL (1.3-4.6); Glucose 161 mg/dL (65-115); Magnesium 1.4 mg/dL (1.7-2.3); Osmolality Calculated 304 mOsm/kg (285-295); Phosphorus 5.1 mg/dL (2.5-4.5); Sodium 139 mmol/L (136-145); Total Bilirubin 0.5 mg/dL (0.15-1.2); Total Protein 6.6 g/dL (6.6-8.7)
[2023-12-18 13:10] LABS: Potassium 2.5 mmol/L (3.5-5.1)
--- NOTE | 2023-12-18 13:22 | ECG_ITS ---
[facility] Test Date: 2023-12-18 Pat Name: Myesha Parker Department: Room: Gender: Female Clerical Clerk: : [id number] Requested By: Aby Al Order Number: [id number] Wilbur MD: Keisha Coronel M.D. Measurements Intervals [place] Rate: 97 P: 0 AL: 0 QRS: -85 QRSD: 190 T: 0 QT: 465 QTc: 593 Interpretive Statements ATRIAL FIBRILLATION RIGHT BUNDLE BRANCH BLOCK [120+ ms QRS DURATION, UPRIGHT V1, 40+ ms S IN I/aVL/V4/V5/V6] LEFT ANTERIOR FASCICULAR BLOCK [QRS AXIS <= -45, QR IN I, RS IN II] Compared to ECG 12/15/2023 09:18:35 No significant changes Electronically Signed On 12-18-2023 21:42:07 CDT by Keisha Coronel M.D. [id number]
--- NOTE | 2023-12-18 13:29 | CT_ITS ---
WS: [id number] CT ABDOMEN AND PELVIS WITH CONTRAST HISTORY: severe diarrhea TECHNIQUE: Imaging performed of the abdomen and pelvis with IV contrast. Single phase imaging of the abdomen. Coronal and sagittal reformats are submitted. All CT scans at [facility] use at rm st one of these dose optimization techniques: automated exposure control; mA and/or kV adjustment per patient size (includes targeted exams where dose is matched to clinical indication); or iterative re construction. IV CONTRAST: Omnipaque 350; 100 mL IV. Oral contrast: No DLP: 906.28 mGy.cm COMPARISON: 04/17/2023 Lower thorax: Small bilateral pleural effusions, RIGHT greater than LEFT. Effusions have very slightl y increased in size since the prior exam. Moderate enlargement of the heart. Heart is normal size. No hiatal hernia. Liver/biliary system: Cirrhotic liver. No mass. Gallbladder: Prior cholecystectomy. Pancreas: Normal size pancreas and pancreatic duct. No adjacent inflammation. Spleen: Normal size spleen. There is a small cystic mass measuring 15 mm from the upper portion of th e spleen. Adrenal glands: Normal. Right kidney: Cortical thinning. No obstruction. Nonobstructing calcifications. Left kidney: Cortical thinning. Scattered hypodensities and cysts. No solid mass or obstruction. Aorta: Moderate atherosclerosis with no aneurysm. Lymphadenopathy: None. Free fluid: None. GI tract: Nondistended stomach. No small bowel obstruction. There is mild circumferential distal sigm oid and rectal wall thickening. Mild submucosal edema with enhancement of the mucosa. No mass. Abdominal wall: Unremarkable abdominal wall. No hernia. Pelvis: Prior hysterectomy. No adenopathy or mass. Bones: Mild degenerative changes at the hips. Degenerative scoliosis lumbar spine. IMPRESSION: 1. Small bilateral pleural effusions, RIGHT greater than LEFT. 2. Cirrhotic liver. 3. There are 2 small to characterize low-attenuation hepatic lesions and renal lesions. 4. No renal obstruction. 5. Prior hysterectomy and cholecystectomy. 6. Mild circumferential mucosal thickening in the distal sigmoid and rectum. Correlate for mild proc titis. No obstructive pattern.
--- NOTE | 2023-12-18 14:00 | P.HP_ITS ---
Providers/Chief Complaint 2 Primary Care Provider: Davion Griggs MD Chief Complaint: N/V/D History of Present Illness Myesha Parker is a 73 year old female with history of congestive heart failure, renal failure, CAD, HTN, COPD, HLD, MDD, sacral decubitus ulcer, hypotension, poor peripheral access, other medical problems discharged from the hospital on 10/20 after recent hospitalization for treatment of fluid overload, atrial fibrillation with RVR, NSTEMI, intubation and successfully extubated during her stay. Patient was restarted on her dialysis through hospitalization. She presents again today for weakness which is generalized and watery diarrhea that she has been having for the last 5 to 6 days. She has been on antibiotics on and off during her previous hospitalization in the last 3 months. Patient is also on Protonix daily. In ER she was found to be positive for C. difficile. CT abdomen pelvis has been ordered and is pending at this time. Potassium found to be 2.5. She has been ordered magnesium and potassium to be given in ER. Patient missed dialysis today secondary to extreme weakness. She is chronically bedbound and Cynthia lift is used to move around at the senior living. Patient is not very ambulatory. Medications/Allergies Home Medications Medication Instructions Recorded Confirmed Last Taken Type cholecalciferol (vitamin D3) 25 1,000 unit PO DAILY@10/12/19 12/18/23 12/18/23 History mcg (1,000 unit) tablet (Vitamin D3) nitroglycerin 0.4 mg sublingual 0.4 mg sublingual Q5M PRN Chest 02/08/21 12/18/23 Unknown Rx tablet (Nitrostat) Pain #30 tabs calcium carbonate (Calcium 600) 600 mg PO DAILY@06/27/21 12/18/23 12/18/23 History levothyroxine 150 mcg tablet 150 mcg PO DAILY@06/27/21 12/18/23 12/18/23 History (Euthyrox) pantoprazole 40 mg tablet,delayed 40 mg PO BID 09/13/21 12/18/23 12/18/23 History release glucose 4 gram chewable tablet 4 g PO PRN PRN Hypoglycemia 06/17/23 12/18/23 Unknown History fluticasone fur. 200 mcg-umeclid 1 inh inhalation DAILY #28 ea 06/20/23 12/18/23 12/18/23 Rx 62.5 mcg-vilant 25 mcg inhalat.powder (Juvenal Pierreta) duloxetine 60 mg capsule,delayed 60 mg PO DAILY@07/25/23 12/18/23 12/18/23 History release insulin lispro 100 unit/mL See Rx Instructions .Route 08/17/23 12/18/23 12/18/23 Rx subcutaneous solution (Humalog .COMPLEX #10 mL U-100 Insulin) hydrocodone 5 mg-acetaminophen 325 1 tab PO TID PRN Pain 09/24/23 12/18/23 12/13/23 History mg tablet acetaminophen 325 mg tablet 650 mg PO Q6H PRN Pain 09/30/23 12/18/23 Unknown History amiodarone 200 mg tablet 200 mg PO DAILY@09/30/23 12/18/23 12/18/23 History bisacodyl 10 mg rectal suppository 10 mg OH DAILY PRN if no bm x3 days 09/30/23 12/18/23 Unknown History (Dulcolax (bisacodyl)) meclizine 25 mg tablet 25 mg PO TID PRN Nausea And 09/30/23 12/18/23 12/17/23 History Vomiting metolazone 2.5 mg tablet See Rx Instructions .Route .COMPLEX 09/30/23 12/18/23 12/12/23 History nystatin 100,000 unit/gram topical See Rx Instructions .Route .COMPLEX 09/30/23 12/18/23 Unknown History powder ([facility]) magnesium L-lactate 84 mg 84 mg PO DAILY@10/12/23 12/18/23 12/18/23 History tablet,extended release methotrexate sodium 2.5 mg tablet 6 mg PO Q7D 10/12/23 12/18/23 12/08/23 History pyridoxine (vitamin B6) 250 mg 500 mg PO DAILY@10/12/23 12/18/23 12/18/23 History tablet (Vitamin B-6) aspirin 81 mg tablet,delayed 81 mg PO DAILY #30 tabs 10/19/23 12/18/23 12/18/23 Rx release midodrine 5 mg tablet 5 mg PO TID PRN SBP less than 110 10/19/23 12/18/23 Unknown Rx mmhg #15 tabs atorvastatin 40 mg tablet 40 mg PO BEDTIME@20 #60 tabs 10/20/23 12/18/23 12/17/23 Rx melatonin 1 mg tablet 1 mg PO BEDTIME 12/05/23 12/18/23 12/17/23 History bumetanide 2 mg tablet See Rx Instructions .Route .COMPLEX 12/15/23 12/18/23 12/17/23 History insulin glargine 100 unit/mL (3 12 unit SUBCUT BEDTIME 12/15/23 12/18/23 12/17/23 History mL) subcutaneous pen (Lantus Solostar U-100 Insulin) metoprolol tartrate 50 mg tablet 50 mg PO BID 12/15/23 12/18/23 12/18/23 History polyethylene glycol 3350 17 See Rx Instructions .Route .COMPLEX 12/15/23 12/18/23 Unknown History gram/dose oral powder (Miralax) Allergies Allergy/AdvReac Type Severity Reaction Status Date / Time adhesive tape Allergy rash Verified 12/18/23 14:08 cinnamon Allergy sinus Verified 12/18/23 14:08 codeine Allergy unknown Verified 12/18/23 14:08 cedar Allergy sinus Uncoded 12/05/23 13:06 pine Allergy sinus Uncoded 12/05/23 13:06 pork food Allergy ADR-Nausea Uncoded 12/05/23 13:06 PFSH Acute 2 PFSH: Medical History UTI (urinary tract infection) Major depressive disorder, recurrent episode, moderate with anxious distress Duodenal ulcer due to bacteria Psychiatric care Coronary artery disease Immunization counseling High risk medication use Chronic knee pain Chronic low back pain COVID-14 August 2020 Seronegative rheumatoid arthritis of both hands Intermittent atrial fibrillation Poorly controlled diabetes mellitus CHF exacerbation Narrow complex tachycardia Inflammatory arthritis Osteoarthritis of knees, bilateral Fibromyalgia Lung nodule Unstable angina Low back pain of over 3 months duration Urgency incontinence Left renal mass COPD (chronic obstructive pulmonary disease) Oxygen dependent, 2 L at baseline Anxiety and depression Hypothyroidism Liver cirrhosis Hyperlipidemia Hypertension Recurrent UTI Surgical History History of cholecystectomy History of thyroid surgery History of cardiac cath History of hysterectomy History of knee replacement Family History Other CAD (coronary artery disease) Cancer Denies family history of Anesthesia complication Bleeding disorder Social History Smoking and tobacco/nicotine status: former use of tobacco/nicotine Quit status (tobacco/nicotine): has quit using Year quit tobacco: 2005 Second hand smoke exposure: No Alcohol intake: never Substance/Drug Use: never Adopted: No Caregiver/support person: No Lives independently: No Household members: spouse Marital status: Current occupational status: retired Current gender identity: Female Vitals/I&O/Wt Last Vital Signs Temp 98.1 F 12/18/23 12:06 Pulse 94 12/18/23 13:14 Resp 16 12/18/23 12:06 BP 157/92 12/18/23 13:14 Pulse Ox 99 12/18/23 13:14 O2 Del Method Room Air 12/18/23 13:14 Weight last 48 hrs Weight 81.647 kg Physical Exam 2 Narrative: General: Cooperative patient in no apparent distress. appears lethargic and weak HEENT: Normocephalic, Atraumatic. External ears normal. Nasal passages patent without drainage. MMM. Heart: Irregularly irregular rhythm. Resp: LCTA. No respiratory distress, no use of accessory muscles. Abd: Soft, mildly tender generalized, no rebound or guarding. Non-distended. Extremities: No edema. Skin: No rash or lesions on exposed areas. Data 12/19/23 05:09 12/19/23 05:09 A&P Assessment and plan (1) Congestive heart failure (CHF): (2) NSTEMI (non-ST elevated myocardial infarction): (3) Renal failure: (4) Chronic atrial fibrillation: (5) COPD (chronic obstructive pulmonary disease): Qualifiers: COPD type: unspecified COPD Qualified Code(s): J44.9 - Chronic obstructive pulmonary disease, unspecified (6) Weakness: (7) Physical deconditioning: (8) Generalized weakness: (9) Clostridioides difficile diarrhea: (10) Diarrhea: Qualifiers: Diarrhea type: unspecified type Qualified Code(s): R19.7 - Diarrhea, unspecified (11) Atrial fibrillation: (12) Missed dialysis: Plan #C.Diff diarrhea #Deconditioning, weakness #End-stage renal disease on dialysis as an outpatient #Chronic hypoxic resp failure #Dehydration #Hx of multiple admissions #Immunocompromised, on adalimumab, methrotrexate outpatient, #A-fib with RVR #Chronic anemia #CAD, #HTN, #COPD, breathing treatments. #HLD, #MDD, #Sacral decubitus ulcer, wound care with home dressing -Presented with watery diarrhea. ? Positive for C. difficile. ? Placed on oral vancomycin 125 4 times daily x 14 days total ? Cut down Protonix to 40 daily ? Continue aspirin, atorvastatin, amiodarone, levothyroxine, magnesium, Metroprolol tartrate, midodrine as needed ? Hold MiraLAX ? DuoNeb every 6 hours as needed ? Continue methotrexate every 7 days ? Continue duloxetine ? Hold Bumex today. ? Consult nephrology for dialysis ? Discussed with patient's and patient regarding CODE STATUS and further plan of care. Patient to remain full code. Patient okay with intubation and chest compressions if needed. ? Check stool culture, ova parasite screen, lactoferrin ? Check Giardia antigen, cryptosporidium antigen, patient is immunocompromise status -Sliding scale insulin for diabetes ? Hold Lantus at this time. ? Replete potassium. IV potassium 20 x 1, 2 g magnesium x 1 ? Recheck labs in a.m. recheck BMP, CBC, magnesium in AM. -Await results of CT scan. Full code DVT prophylaxis: Neil Delgadoations 2 Medical Necessity Statement*: Greater than 2 midnight stay for C. difficile diarrhea, deconditioning, weakness, severe hypokalemia requiring IV replacement therapy. Diagnoses Congestive heart failure (CHF) I50.9 NSTEMI (non-ST elevated myocardial infarction) I21.4 Renal failure N19 Chronic atrial fibrillation I48.20 Chronic obstructive pulmonary disease, unspecified COPD type J44.9 COPD type: unspecified COPD Weakness R53.1 Physical deconditioning R53.81 Generalized weakness R53.1 Clostridioides difficile diarrhea A04.72 Diarrhea, unspecified type R19.7 Diarrhea type: unspecified type Atrial fibrillation I48.91 Missed dialysis
[2023-12-18] MEDS: iohexol 350 mg/mL 500 mL Btl (per mL) IV (14:08)
[2023-12-18 14:17] LABS: C.Diff PCR (Lab) POSITIVE (Negative)
[2023-12-18] MEDS: lidocaine 1% 5 ML in potassium chloride premix 100 ML 52.5 ML IV (14:24)
[2023-12-18] MEDS: magnesium sulfate premix 2 GM/50 ML PIGGYBACK IV (14:25)
[2023-12-18] MEDS: sodium chloride 0.9% 500 ML 999 ML IV (14:26)
[2023-12-18 14:49] LABS: NT Pro B Type Natriuretic Pept 11174 pg/mL (0-450); Procalcitonin 0.49 ng/mL (0-0.5); Thyroid Stimulating Hormone 1.83 uIU/mL (0.27-4.20)
[2023-12-18 15:01] LABS: Clostridioides Difficile Toxin NEGATIVE (Negative)
--- NOTE | 2023-12-18 15:54 | PC.NURSE ---
PT WAS CHANGED OF INCONTINENT BM AND INCONTINENT URINE EPISODE. TOTAL BED CHANGE COMPLETED.
--- NOTE | 2023-12-18 16:13 | PC.NURSE ---
attempted to call report at 1600. was told nurse would call back.
--- NOTE | 2023-12-18 16:41 | PC.NURSE ---
SECOND ATTEMPTED TO GIVE REPORT AT [phone]
[2023-12-18] MEDS: pantoprazole DR 40 mg Tablet PO (18:04)
[2023-12-18] MEDS: vancomycin 125 mg Capsule PO ×2 (18:04→21:30)
[2023-12-18] MEDS: metoprolol tartrate 50 mg Tablet PO (18:04)
[2023-12-18] MEDS: acetaminophen 325 mg Tablet 650 MG PO (18:04)
[2023-12-18 21:16] LABS: Glucose Point of Care 141 mg/dL (70-110)
[2023-12-18] MEDS: atorvastatin 40 mg Tablet PO (21:30)
[2023-12-18] MEDS: insulin lispro 100 unit/1 mL SUBCUT (21:43)
[2023-12-19] VITALS (7 sets, daily range): BP systolic 81–137; BP diastolic 54–85; PULSE 64–110; RESP 16–20; TEMP 36.6–37; O2SAT 97–100
[2023-12-19] MEDS: HYDROcodone-acetaminophen 5-325 mg Tablet 1 TAB PO ×3 (01:27→23:26)
[2023-12-19] MEDS: heparin 5,000 unit/mL INJ 1 mL 5000 UNIT SUBCUT ×2 (01:28→13:56)
[2023-12-19 05:43] LABS: Basophils % 0.1 %; Eosinophils % 0.3 %; Hematocrit 27.6 % (36-47); Lymphocytes # 0.3 10^3/uL (0.8-4.8); Lymphocytes % 4.9 %; Mean Corpuscular HGB Conc 31.9 g/dL (30-55); Mean Corpuscular Hemoglobin 31.7 pg (27-33); Mean Corpuscular Volume 99.3 fl (85-98); Monocytes # 0.1 10^3/uL (0.2-0.9); Monocytes % 1.8 %; Neutrophils # 6.24 10^3/uL (1.8-7.7); Neutrophils % 91.9 %; Nucleated Red Blood Cells % 0 %; Platelet Count 206 10^3/cmm (157-399); Red Blood Count 2.78 10^6/uL (3.85-5.65); Red Cell Distribution Width 19.4 % (12.1-15.1); White Blood Count 6.79 10^3/uL (3.29-11.43)
[2023-12-19 06:06] LABS: Alanine Aminotransferase 57 U/L (0-33); Albumin Level 2.6 g/dL (3.5-5.2); Alkaline Phosphatase 132 U/L (35-105); Anion Gap 14.6 (5-19); Aspartate Amino Transferase 85 U/L (0-32); Blood Urea Nitrogen 52 mg/dL (8-23); Calcium 8.8 mg/dL (8.5-10.5); Carbon Dioxide 30 mmol/L (22-29); Chloride 98 mmol/L (98-107); Creatinine Clr Calc Pharmacy 27.0099; Globulin 3.5 g/dL (1.3-4.6); Glucose 102 mg/dL (65-115); Magnesium 1.7 mg/dL (1.7-2.3); Osmolality Calculated 304 mOsm/kg (285-295); Sodium 140 mmol/L (136-145); Total Bilirubin 0.4 mg/dL (0.15-1.2); Total Protein 6.1 g/dL (6.6-8.7)
[2023-12-19 06:21] LABS: Potassium 2.6 mmol/L (3.5-5.1)
[2023-12-19 06:36] LABS: Glucose Point of Care 117 mg/dL (70-110)
[2023-12-19] MEDS: amiodarone 200 mg Tablet PO (06:39)
[2023-12-19] MEDS: levothyroxine 150 mcg Tablet PO (06:39)
[2023-12-19] MEDS: duloxetine 60 mg Capsule PO (06:39)
[2023-12-19 08:54] LABS: Hepatitis B Surface AB < 3.5 (11.5-1000); Hepatitis B Surface Antigen Non-Reactive (Nonreactive)
[2023-12-19] MEDS: pantoprazole DR 40 mg Tablet PO ×2 (09:34→17:16)
[2023-12-19] MEDS: vancomycin 125 mg Capsule PO ×4 (09:34→21:05)
[2023-12-19] MEDS: metoprolol tartrate 50 mg Tablet PO (09:34)
[2023-12-19] MEDS: magnesium lactate 84 mg Tablet PO (09:34)
[2023-12-19] MEDS: aspirin 81 mg EC Tablet PO (09:34)
[2023-12-19] MEDS: heparin, porcine 1,000 unit/mL INJ 10 mL 10000 UNIT INTRACATH (09:47)
[2023-12-19] MEDS: albumin 12.5 GM/50 ML VIAL IV ×3 (10:20→11:53)
[2023-12-19 10:54] LABS: Glucose Point of Care 122 mg/dL (70-110)
--- NOTE | 2023-12-19 12:12 | P.PN_ITS ---
Subjective 2 Subjective: Patient undergoing dialysis this morning. She says she does not feel too well. Feels weak. Blood pressure on soft side this a.m. Has had 2 watery bowel movements since morning. Vitals/I&O/Wt Last Vital Signs Temp 97.9 F 12/19/23 07:21 Pulse 85 12/19/23 07:21 Resp 17 12/19/23 07:21 BP 116/71 12/19/23 07:21 Pulse Ox 99 12/19/23 07:21 O2 Del Method Nasal Cannula 12/19/23 07:21 O2 Flow Rate 2 12/19/23 07:21 12/18/23 12/19/23 12/19/23 22:59 06:59 14:59 Intake Total 895 / 895 93 / 93 Balance 895 / 895 93 / 93 Weight last 48 hrs Weight 90.492 kg Weight 91.535 kg Weight 81.647 kg Physical Exam 2 Narrative: General: Cooperative patient in no apparent distress. appears lethargic and weak HEENT: Normocephalic, Atraumatic. External ears normal. Nasal passages patent without drainage. MMM. Heart: Irregularly irregular rhythm. Resp: LCTA. No respiratory distress, no use of accessory muscles. Abd: Soft, mildly tender generalized, no rebound or guarding. Non-distended. However improved. Extremities: No edema. Skin: No rash or lesions on exposed areas. Data 12/19/23 05:09 12/19/23 05:09 Micro: Microbiology 12/18/23 21:35 Stool Lactoferrin - Final Stool 12/18/23 15:18 Blood Culture - Preliminary Blood SPECIMEN COLLECTED 12/18/23 15:10 Blood Culture - Preliminary Blood SPECIMEN COLLECTED A&P Assessment and plan (1) Congestive heart failure (CHF): (2) NSTEMI (non-ST elevated myocardial infarction): (3) Renal failure: (4) Chronic atrial fibrillation: (5) COPD (chronic obstructive pulmonary disease): Qualifiers: COPD type: unspecified COPD Qualified Code(s): J44.9 - Chronic obstructive pulmonary disease, unspecified (6) Weakness: (7) Physical deconditioning: (8) Generalized weakness: (9) Clostridioides difficile diarrhea: (10) Diarrhea: Qualifiers: Diarrhea type: unspecified type Qualified Code(s): R19.7 - Diarrhea, unspecified (11) Atrial fibrillation: (12) Missed dialysis: Plan #C.Diff diarrhea #Deconditioning, weakness #Acute on chronic congestive heart failure #End-stage renal disease on dialysis as an outpatient #Chronic hypoxic resp failure #Severe hypokalemia #Dehydration #Hx of multiple admissions #Immunocompromised, on adalimumab, methrotrexate outpatient, #A-fib with RVR #Chronic anemia #CAD, #HTN, #COPD, breathing treatments. #HLD, #MDD, #Sacral decubitus ulcer, wound care with home dressing -Presented with watery diarrhea. ? Positive for C. difficile. ? Placed on oral vancomycin 125 4 times daily x 14 days total ? Cut down Protonix to 40 daily ? Continue aspirin, atorvastatin, amiodarone, levothyroxine, magnesium, Metroprolol tartrate, midodrine as needed ? Hold MiraLAX ? DuoNeb every 6 hours as needed ? Continue methotrexate every 7 days ? Continue duloxetine ? Hold Bumex today. ? Consult nephrology for dialysis ? Discussed with patient's and patient regarding CODE STATUS and further plan of care. Patient to remain full code. Patient okay with intubation and chest compressions if needed. ? Check stool culture, ova parasite screen, lactoferrin ? Check Giardia antigen, cryptosporidium antigen, patient is immunocompromise status -Sliding scale insulin for diabetes ? Hold Lantus at this time. ? Replete potassium. 2.5 this morning. ? Recheck labs in a.m. recheck BMP, CBC, magnesium in AM. ? Mildly elevated liver enzymes most likely secondary to hepatic congestion due to heart failure exacerbation. -CT abdomen reviewed mild circumferential mucosal thickening in distal sigmoid colon and rectum. Correlate for mild proctitis. ? Today's plan/24 ? Continue oral vancomycin for C. difficile ? Await stool cultures and stool screens ? Dialyze patient. Nephrology consulted ? Restart midodrine as needed for hypotension ? Patient getting albumin during dialysis today. ? PT OT ? Plan for discharge in a.m. as long as patient continues to improve ? Check CBC CMP in AM. Full code DVT prophylaxis: Neil Attestations 2 Medical Necessity Statement*: Greater than 2 midnight stay for C. difficile diarrhea, deconditioning, weakness, severe hypokalemia requiring IV replacement therapy. Diagnoses Congestive heart failure (CHF) I50.9 NSTEMI (non-ST elevated myocardial infarction) I21.4 Renal failure N19 Chronic atrial fibrillation I48.20 Chronic obstructive pulmonary disease, unspecified COPD type J44.9 COPD type: unspecified COPD Weakness R53.1 Physical deconditioning R53.81 Generalized weakness R53.1 Clostridioides difficile diarrhea A04.72 Diarrhea, unspecified type R19.7 Diarrhea type: unspecified type Atrial fibrillation I48.91 Missed dialysis
[2023-12-19 13:38] LABS: Anion Gap 13.7 (5-19); Blood Urea Nitrogen 16 mg/dL (8-23); Calcium 8.1 mg/dL (8.5-10.5); Carbon Dioxide 28 mmol/L (22-29); Chloride 102 mmol/L (98-107); Creatinine Clr Calc Pharmacy 67.5247; Glucose 108 mg/dL (65-115); Osmolality Calculated 294 mOsm/kg (285-295); Sodium 141 mmol/L (136-145)
[2023-12-19 13:41] LABS: Potassium 2.7 mmol/L (3.5-5.1)
[2023-12-19] MEDS: lidocaine 1% 5 ML in potassium chloride premix 100 ML 52.5 ML IV (14:11)
[2023-12-19] MEDS: acetaminophen 325 mg Tablet 650 MG PO (14:11)
--- NOTE | 2023-12-19 16:01 | P.CONIM_ITS ---
Providers/Reason For Consult 2 Consulting Physician/Specialty*: [facility]/Nephrology Reason for Consult*: ESRD Attending Physician: Adriane Terry MD Primary Care Provider: Davion Griggs MD History of Present Illness History of Present Illness Myesha Parker is a 73 year old female Patient is a 73-year-old female with a past medical history of congestive cardiac failure, end-stage renal disease on dialysis, coronary artery disease, hypertension COPD, dyslipidemia, sacral decubitus ulcer presented to the emergency department from a correction due to weakness, diarrhea. Patient was tested positive for C. difficile. Lab data was significant for potassium of 2.6, hemoglobin of 8.8. Medications/Allergies Home Medications Medication Instructions Recorded Confirmed Last Taken Type cholecalciferol (vitamin D3) 25 1,000 unit PO DAILY@10/12/19 12/18/23 12/18/23 History mcg (1,000 unit) tablet (Vitamin D3) nitroglycerin 0.4 mg sublingual 0.4 mg sublingual Q5M PRN Chest 02/08/21 12/18/23 Unknown Rx tablet (Nitrostat) Pain #30 tabs calcium carbonate (Calcium 600) 600 mg PO DAILY@06/27/21 12/18/23 12/18/23 History levothyroxine 150 mcg tablet 150 mcg PO DAILY@06/27/21 12/18/23 12/18/23 History (Euthyrox) pantoprazole 40 mg tablet,delayed 40 mg PO BID 09/13/21 12/18/23 12/18/23 History release glucose 4 gram chewable tablet 4 g PO PRN PRN Hypoglycemia 06/17/23 12/18/23 Unknown History fluticasone fur. 200 mcg-umeclid 1 inh inhalation DAILY #28 ea 06/20/23 12/18/23 12/18/23 Rx 62.5 mcg-vilant 25 mcg inhalat.powder (Trelegy Ellipta) duloxetine 60 mg capsule,delayed 60 mg PO DAILY@07/25/23 12/18/23 12/18/23 History release insulin lispro 100 unit/mL See Rx Instructions .Route 08/17/23 12/18/23 12/18/23 Rx subcutaneous solution (Humalog .COMPLEX #10 mL U-100 Insulin) hydrocodone 5 mg-acetaminophen 325 1 tab PO TID PRN Pain 09/24/23 12/18/23 12/13/23 History mg tablet acetaminophen 325 mg tablet 650 mg PO Q6H PRN Pain 09/30/23 12/18/23 Unknown History amiodarone 200 mg tablet 200 mg PO DAILY@07 09/30/23 12/18/23 12/18/23 History bisacodyl 10 mg rectal suppository 10 mg [place] DAILY PRN if no bm x3 days 09/30/23 12/18/23 Unknown History (Dulcolax (bisacodyl)) meclizine 25 mg tablet 25 mg PO TID PRN Nausea And 09/30/23 12/18/23 12/17/23 History Vomiting metolazone 2.5 mg tablet See Rx Instructions .Route .COMPLEX 09/30/23 12/18/23 12/12/23 History nystatin 100,000 unit/gram topical See Rx Instructions .Route .COMPLEX 09/30/23 12/18/23 Unknown History powder ([facility]) magnesium L-lactate 84 mg 84 mg PO DAILY@10/12/23 12/18/23 12/18/23 History tablet,extended release methotrexate sodium 2.5 mg tablet 6 mg PO Q7D 10/12/23 12/18/23 12/08/23 History pyridoxine (vitamin B6) 250 mg 500 mg PO DAILY@10/12/23 12/18/23 12/18/23 History tablet (Vitamin B-6) aspirin 81 mg tablet,delayed 81 mg PO DAILY #30 tabs 10/19/23 12/18/23 12/18/23 Rx release midodrine 5 mg tablet 5 mg PO TID PRN SBP less than 110 10/19/23 12/18/23 Unknown Rx mmhg #15 tabs atorvastatin 40 mg tablet 40 mg PO BEDTIME@20 #60 tabs 10/20/23 12/18/23 12/17/23 Rx melatonin 1 mg tablet 1 mg PO BEDTIME 12/05/23 12/18/23 12/17/23 History bumetanide 2 mg tablet See Rx Instructions .Route .COMPLEX 12/15/23 12/18/23 12/17/23 History insulin glargine 100 unit/mL (3 12 unit SUBCUT BEDTIME 12/15/23 12/18/23 12/17/23 History mL) subcutaneous pen (Lantus Solostar U-100 Insulin) metoprolol tartrate 50 mg tablet 50 mg PO BID 12/15/23 12/18/23 12/18/23 History polyethylene glycol 3350 17 See Rx Instructions .Route .COMPLEX 12/15/23 12/18/23 Unknown History gram/dose oral powder (Miralax) Allergies Allergy/AdvReac Type Severity Reaction Status Date / Time adhesive tape Allergy rash Verified 12/18/23 14:08 cinnamon Allergy sinus Verified 12/18/23 14:08 codeine Allergy unknown Verified 12/18/23 14:08 cedar Allergy sinus Uncoded 12/05/23 13:06 pine Allergy sinus Uncoded 12/05/23 13:06 pork food Allergy ADR-Nausea Uncoded 12/05/23 13:06 Current Medications Generic Name Dose Route Start Last Admin Trade Name Freq PRN Reason Stop Dose Admin Acetaminophen 650 mg 12/18/23 14:06 12/19/23 14:11 Acetaminophen 325 Mg Tablet PO 650 mg Q6H PRN Administration Mild/Mod Pain Or Temp >/= 101 Hydrocodone Bitart/Acetaminophen 1 tab 12/18/23 18:55 12/19/23 09:45 Hydrocodone-Acetaminophen 5-325 Mg Tablet PO 1 tab TID PRN Administration MODERATE PAIN Amiodarone HCl 200 mg 12/19/23 07:00 12/19/23 06:39 Amiodarone 200 Mg Tablet PO 200 mg DAILY@07 [facility] Administration Aspirin 81 mg 12/19/23 09:00 12/19/23 09:34 Aspirin 81 Mg Ec Tablet PO 81 mg DAILY JOCE Administration Atorvastatin Calcium 40 mg 12/18/23 20:00 12/18/23 21:30 Atorvastatin 40 Mg Tablet PO 40 mg BEDTIME@20 [facility] Administration Calcium Carbonate 600 each 12/19/23 07:00 12/19/23 05:05 Calcium Carb-Vit D 600mg/400unit 1 Tablet PO Not Given DAILY@07 [facility] Duloxetine HCl 60 mg 12/19/23 07:00 12/19/23 06:39 Duloxetine 60 Mg Capsule PO 60 mg DAILY@07 [facility] Administration Heparin Sodium (Porcine) 5,000 unit 12/18/23 14:15 12/19/23 13:56 Heparin 5,000 Unit/Ml Inj 1 Ml SUBCUT 5,000 unit Q12H JOCE Administration Albumin Human 12.5 gm in 50 mls @ 60 mls/hr 12/19/23 07:46 12/19/23 14:25 Albumin IV Infused PRN PRN Infusion Hypotension and/or symptomatic Insulin Human Lispro 0 unit 12/18/23 18:00 12/19/23 11:45 Insulin Lispro 100 Unit/1 Ml SUBCUT Not Given WM&BEDTIME [facility] Protocol Levothyroxine Sodium 150 mcg 12/19/23 06:00 12/19/23 06:39 Levothyroxine 150 Mcg Tablet PO 150 mcg DAILY@06 [facility] Administration Magnesium Lactate 84 mg 12/19/23 08:00 12/19/23 09:34 Magnesium Lactate 84 Mg Tablet PO 84 mg DAILY@08 [facility] Administration Metoprolol Tartrate 50 mg 12/18/23 18:00 12/19/23 09:34 Metoprolol Tartrate 50 Mg Tablet PO 50 mg BID JOCE Administration Non-Formulary Medication 500 mg 12/19/23 08:00 12/19/23 09:36 Pyridoxine (Vitamin B6) [Vitamin B-6] PO Not Given DAILY@08 [facility] Pantoprazole Sodium 40 mg 12/18/23 18:00 12/19/23 09:[address] 40 Mg Tablet PO 40 mg BID JOCE Administration Vancomycin HCl 125 mg 12/18/23 17:00 12/19/23 13:56 Vancomycin 125 Mg Capsule PO 125 mg QID JOCE Administration PFSH Acute 2 PFSH: Medical History UTI (urinary tract infection) Major depressive disorder, recurrent episode, moderate with anxious distress Duodenal ulcer due to bacteria Psychiatric care Coronary artery disease Immunization counseling High risk medication use Chronic knee pain Chronic low back pain COVID-14 August 2020 Seronegative rheumatoid arthritis of both hands Intermittent atrial fibrillation Poorly controlled diabetes mellitus CHF exacerbation Narrow complex tachycardia Inflammatory arthritis Osteoarthritis of knees, bilateral Fibromyalgia Lung nodule Unstable angina Low back pain of over 3 months duration Urgency incontinence Left renal mass COPD (chronic obstructive pulmonary disease) Oxygen dependent, 2 L at baseline Anxiety and depression Hypothyroidism Liver cirrhosis Hyperlipidemia Hypertension Recurrent UTI Surgical History History of cholecystectomy History of thyroid surgery History of cardiac cath History of hysterectomy History of knee replacement Family History Other CAD (coronary artery disease) Cancer Denies family history of Anesthesia complication Bleeding disorder Social History Smoking and tobacco/nicotine status: former use of tobacco/nicotine Quit status (tobacco/nicotine): has quit using Year quit tobacco: 2005 Second hand smoke exposure: No Alcohol intake: never Substance/Drug Use: never Adopted: No Caregiver/support person: No Lives independently: No Household members: spouse Marital status: Current occupational status: retired Current gender identity: Female Vitals/I&O/Wt Last Vital Signs Temp 97.9 F 12/19/23 07:21 Pulse 81 12/19/23 10:00 Resp 16 12/19/23 10:00 BP 116/71 12/19/23 07:21 Pulse Ox 97 12/19/23 10:00 O2 Del Method Nasal Cannula 12/19/23 10:00 O2 Flow Rate 2 12/19/23 10:00 12/19/23 12/19/23 12/19/23 06:59 14:59 22:59 Intake Total 143 / 143 Balance 143 / 143 Weight last 48 hrs Weight 90.492 kg Weight 91.535 kg Weight 81.647 kg Data 12/19/23 05:09 12/19/23 13:12 Micro: Microbiology 12/18/23 15:10 Blood Culture - Preliminary Blood NEGATIVE TO DATE 12/18/23 15:18 Blood Culture - Preliminary Blood NEGATIVE TO DATE 12/18/23 21:35 Stool Lactoferrin - Final Stool A&P Assessment and plan (1) End stage renal disease on dialysis: Plan 1. End-stage renal disease: MWF schedule as outpatient, HD today 2. Hypertension: Blood pressure controlled 3. Anemia: CARY with HD 4. Hypokalemia: Can replace K, needs 3K bath 4. C. difficile colitis Patient evaluated using unusual cart. Time spent 40 minutes Consult Attestations 2 Medical Necessity Statement: PER MEDICINE Coding Level of Care Code Acute Code for Chg Fwd Diagnoses End stage renal disease on dialysis N18.6; Z99.2
--- NOTE | 2023-12-19 16:51 | PC.HD ---
Persistent, asymptomatic hypotension throughout HD treatment precluded removing any fluid. Albumin 25% 150ml administered throughout treatment to maintain SBP 90s to 100s and treatment able to be completed.
[2023-12-19 17:23] LABS: Glucose Point of Care 121 mg/dL (70-110)
[2023-12-19] MEDS: midodrine 5 mg TABLET PO (17:41)
[2023-12-19 20:27] LABS: Glucose Point of Care 145 mg/dL (70-110)
[2023-12-19] MEDS: insulin lispro 100 unit/1 mL SUBCUT (21:04)
[2023-12-19] MEDS: atorvastatin 40 mg Tablet PO (21:05)
[2023-12-19] MEDS: ondansetron 2 mg/ML SDV 2 mL 4 MG IVP (23:21)
[2023-12-20] VITALS (15 sets, daily range): BP systolic 99–120; BP diastolic 56–83; PULSE 76–122; RESP 14–20; TEMP 36.4–37.1; O2SAT 93–100
[2023-12-20] MEDS: lanolin oint 7 gm 1 APPLIC TOPICAL (00:50)
[2023-12-20] MEDS: heparin 5,000 unit/mL INJ 1 mL 5000 UNIT SUBCUT (02:31)
[2023-12-20 05:17] LABS: Basophils % 0.2 %; Eosinophils # 0.1 10^3/uL (0.0-0.8); Eosinophils % 0.7 %; Hematocrit 23.5 % (36-47); Lymphocytes # 0.5 10^3/uL (0.8-4.8); Lymphocytes % 5.1 %; Mean Corpuscular HGB Conc 31.1 g/dL (30-55); Mean Corpuscular Hemoglobin 31.2 pg (27-33); Mean Corpuscular Volume 100.4 fl (85-98); Mean Platelet Volume 9.2 fL (7.4-10.4); Monocytes # 0.1 10^3/uL (0.2-0.9); Monocytes % 1.4 %; Neutrophils # 8.92 10^3/uL (1.8-7.7); Neutrophils % 91.9 %; Nucleated Red Blood Cells % 0 %; Platelet Count 172 10^3/cmm (157-399); Red Blood Count 2.34 10^6/uL (3.85-5.65); White Blood Count 9.72 10^3/uL (3.29-11.43)
[2023-12-20 05:42] LABS: Alanine Aminotransferase 57 U/L (0-33); Albumin Level 3.2 g/dL (3.5-5.2); Alkaline Phosphatase 117 U/L (35-105); Aspartate Amino Transferase 68 U/L (0-32); Blood Urea Nitrogen 29 mg/dL (8-23); Calcium 8.8 mg/dL (8.5-10.5); Carbon Dioxide 27 mmol/L (22-29); Chloride 103 mmol/L (98-107); Creatinine Clr Calc Pharmacy 26.6618; Glucose 133 mg/dL (65-115); Magnesium 1.8 mg/dL (1.7-2.3); Osmolality Calculated 302 mOsm/kg (285-295); Sodium 142 mmol/L (136-145); Total Bilirubin 0.5 mg/dL (0.15-1.2); Total Protein 6.2 g/dL (6.6-8.7)
[2023-12-20 05:43] LABS: Anion Gap 15.1 (5-19); Potassium 3.1 mmol/L (3.5-5.1)
[2023-12-20] MEDS: duloxetine 60 mg Capsule PO (06:00)
[2023-12-20] MEDS: levothyroxine 150 mcg Tablet PO (06:00)
[2023-12-20] MEDS: amiodarone 200 mg Tablet PO (06:00)
[2023-12-20] MEDS: calcium carb-vit d 600mg/400unit 1 Tablet 1 EACH PO (06:26)
[2023-12-20 06:40] LABS: Glucose Point of Care 137 mg/dL (70-110)
[2023-12-20] MEDS: aspirin 81 mg EC Tablet PO (09:57)
[2023-12-20] MEDS: magnesium lactate 84 mg Tablet PO (09:57)
[2023-12-20] MEDS: vancomycin 125 mg Capsule PO ×3 (09:57→20:52)
[2023-12-20] MEDS: pantoprazole DR 40 mg Tablet PO ×2 (09:57→18:02)
[2023-12-20] MEDS: metoprolol tartrate 50 mg Tablet PO ×2 (09:57→18:02)
[2023-12-20 11:08] LABS: Glucose Point of Care 150 mg/dL (70-110)
[2023-12-20] MEDS: albumin 12.5 GM/50 ML VIAL IV ×2 (11:45→12:13)
--- NOTE | 2023-12-20 11:45 | P.DS_ITS ---
Discharge Providers Date of Admission: 12/18/23 15:22 Date of Discharge: December 20, 2023 Attending Provider at Admission: Adriane Terry MD Attending Provider at Discharge: Adriane Terry MD Primary Care Provider: Davion Griggs MD Diagnoses at Discharge Discharge Diagnosis (1) End stage renal disease on dialysis: Status: Acute Reason for Visit Reason for Visit: N/V/D Hospital Course Hospital Course Patient presented for generalized weakness and diarrhea. She is C. difficile positive. Oral vancomycin has been started and diarrhea is starting to slow down. Her generalized weakness is chronic. Patient has been at the hospital multiple times in the past with prolonged hospital stays requiring intubation secondary to acute on chronic heart failure exacerbation. Hemoglobin 7.3 on day of discharge. Plan to administer a unit of blood with dialysis today and discharge thereafter. Patient agreeable to above plan. She is to follow-up with her primary care doctor after dc. This document to serve as a discharge summary for today. Patient will be discharged after dialysis. Physical Exam Narrative: General: Cooperative patient in no apparent distress. HEENT: Normocephalic, Atraumatic. External ears normal. Nasal passages patent without drainage. MMM. Heart: Irregularly irregular rhythm. Resp: LCTA. No respiratory distress, no use of accessory muscles. Abd: Soft, mildly tender generalized, no rebound or guarding. Non-distended. However improved. Extremities: No edema. Skin: No rash or lesions on exposed areas. Discharge Data Studies Completed and Pending Completed Studies During Hospitalization Category Date Time Status CT abdomen pelvis w con* [id number] Stat Cat Scan 12/18/23 13:29 Completed Pending at discharge Category Date Time Status Blood Culture Routine Lab 12/18/23 15:18 Results Giardia and Cryptosporidium Ag Routine Lab 12/19/23 12:09 Ordered Leukocyte Reduced RBC Routine Lab 12/20/23 11:18 Ordered OVA and Parasites, Conc and PE Routine Lab 12/18/23 14:12 Received Rota Virus AG Stool Routine Lab 12/18/23 21:35 Received Sputum Culture and Gram Stain Stat Lab 12/20/23 09:10 Received Stool Culture - Enteric [Salmonella / Shigella / Campy] Lab 12/18/23 14:12 Received Routine Type and Screen Routine Lab 12/20/23 11:18 Ordered Urinalysis Routine Lab 12/18/23 14:06 Uncollected Laboratory Results WBC 9.72 10^3/uL (3.29-11.43) 12/20/23 05:05 RBC 2.34 10^6/uL (3.85-5.65) L 12/20/23 05:05 Hgb 7.30 g/dL (11.27-16.99) L 12/20/23 05:05 Hct 23.5 % (36-47) L 12/20/23 05:05 MCV 100.4 fl (85-98) H 12/20/23 05:05 MCH 31.2 pg (27-33) 12/20/23 05:05 MCHC 31.1 g/dL (30-55) 12/20/23 05:05 RDW 19.0 % (12.1-15.1) H 12/20/23 05:05 Plt Count 172 10^3/cmm (157-399) 12/20/23 05:05 MPV 9.2 fL (7.4-10.4) 12/20/23 05:05 Neut % (Auto) 91.9 % 12/20/23 05:05 Lymph % (Auto) 5.1 % 12/20/23 05:05 [place] % (Auto) 1.4 % 12/20/23 05:05 Eos % (Auto) 0.7 % 12/20/23 05:05 Baso % (Auto) 0.2 % 12/20/23 05:05 Neut # (Auto) 8.92 10^3/uL (1.8-7.7) H 12/20/23 05:05 Lymph # (Auto) 0.5 10^3/uL (0.8-4.8) L 12/20/23 05:05 [place] # (Auto) 0.1 10^3/uL (0.2-0.9) L 12/20/23 05:05 Eos # (Auto) 0.1 10^3/uL (0.0-0.8) 12/20/23 05:05 Baso # (Auto) 0.0 10^3/uL (0.0-0.1) 12/20/23 05:05 Nucleated RBC % (auto) 0 % 12/20/23 05:05 Nucleated RBCs # 0.0 /100WBC 12/20/23 05:05 Sodium 142 mmol/L (136-145) 12/20/23 05:05 Potassium 3.1 mmol/L (3.5-5.1) L 12/20/23 05:05 Chloride 103 mmol/L (98-107) 12/20/23 05:05 Carbon Dioxide 27 mmol/L (22-29) 12/20/23 05:05 Anion Gap 15.1 (5-19) 12/20/23 05:05 BUN 29 mg/dL (8-23) H 12/20/23 05:05 Creatinine 2.0 mg/dL (0.5-0.9) H 12/20/23 05:05 GFR Calculation Not Reportable 12/20/23 05:05 Glucose 133 mg/dL (65-115) H 12/20/23 05:05 POC Glucose 150 mg/dL (70-110) H 12/20/23 11:04 Calculated Osmolality 302 mOsm/kg (285-295) H 12/20/23 05:05 Calcium 8.8 mg/dL (8.5-10.5) 12/20/23 05:05 Phosphorus 5.1 mg/dL (2.5-4.5) H 12/18/23 12:28 Magnesium 1.8 mg/dL (1.7-2.3) 12/20/23 05:05 Total Bilirubin 0.5 mg/dL (0.15-1.2) 12/20/23 05:05 AST 68 U/L (0-32) H 12/20/23 05:05 ALT 57 U/L (0-33) H 12/20/23 05:05 Alkaline Phosphatase 117 U/L (35-105) H 12/20/23 05:05 NT-Pro-B Natriuret Pep 13996 pg/mL (0-450) H 12/18/23 12:28 Total Protein 6.2 g/dL (6.6-8.7) L 12/20/23 05:05 Albumin 3.2 g/dL (3.5-5.2) L 12/20/23 05:05 Globulin 3.0 g/dL (1.3-4.6) 12/20/23 05:05 Procalcitonin 0.49 ng/mL (0-0.5) 12/18/23 12:28 TSH 1.83 uIU/mL (0.27-4.20) 12/18/23 12:28 C. difficile (PCR) Positive (Negative) H 12/18/23 12:41 C.difficile Tox Confrm Negative (Negative) 12/18/23 12:41 Hep Bs Antigen Non-reactive (Nonreactive) 12/19/23 05:09 Hep Bs Antibody < 3.5 (11.5-1000) L 12/19/23 05:09 Vitals Last Vital Signs Temp 98.1 F 12/20/23 08:00 Pulse 122 H 12/20/23 08:00 Resp 16 12/20/23 09:11 BP 99/64 12/20/23 08:00 Pulse Ox 93 12/20/23 09:11 O2 Del Method Nasal Cannula 12/20/23 09:11 O2 Flow Rate 2 12/20/23 09:11 Discharge Plan Discharge Patient Disposition: Xfer SNF Condition: Stable Prescriptions: New vancomycin 125 mg Capsule 125 mg PO QID 12 Days Qty: 48 0RF Continued nitroglycerin [Nitrostat] 0.4 mg tablet, sublingual 0.4 mg SUBLINGUAL Q5M PRN (Reason: Chest Pain) Qty: 30 3RF Rx Instructions: MAX 3 DOSES PER EPISODE levothyroxine [Euthyrox] 150 mcg tablet 150 mcg PO DAILY@06 calcium carbonate [Calcium 600] 600 mg calcium (1,500 mg) tablet 600 mg PO DAILY@07 melatonin 1 mg tablet 1 mg PO BEDTIME hydrocodone-acetaminophen 5-325 mg tablet 1 tab PO TID PRN (Reason: Pain) cholecalciferol (vitamin D3) [Vitamin D3] 25 mcg (1,000 unit) Tablet 1,000 unit PO DAILY@07 pantoprazole 40 mg tablet,delayed release (DR/EC) 40 mg PO BID glucose 4 gram tablet,chewable 4 g PO PRN PRN (Reason: Hypoglycemia) Trelegy Ellipta 200-62.5-25 mcg blister with device 1 inh INHALATION DAILY Qty: 28 0RF duloxetine 60 mg capsule,delayed release(DR/EC) 60 mg PO DAILY@07 insulin lispro [Humalog U-100 Insulin] 100 unit/mL Solution See Rx Instructions .ROUTE .COMPLEX MDD 40 Qty: 10 0RF Rx Instructions: per sliding scale with meals 150-200=2 units 201-250=4 units 251-300=6 units 301-350=8 units 351-400=10 units 401-450=12 units metolazone 2.5 mg Tablet See Rx Instructions .ROUTE .COMPLEX Rx Instructions: 2.5 mg orally twice weekly ON SUNDAY AND SUNDAY acetaminophen 325 mg Tablet 650 mg PO Q6H PRN (Reason: Pain) amiodarone 200 mg tablet 200 mg PO DAILY@07 meclizine 25 mg tablet 25 mg PO TID PRN (Reason: Nausea And Vomiting) bisacodyl [Dulcolax (bisacodyl)] 10 mg Suppository 10 mg [place] DAILY PRN (Reason: if no bm x3 days ) nystatin [Nyamyc] 100,000 unit/gram powder See Rx Instructions .ROUTE .COMPLEX Rx Instructions: as directed every shift as needed (apply between thighs and affected areas twice a day as needed) methotrexate sodium 2.5 mg Tablet 6 mg PO Q7D Rx Instructions: on sat pyridoxine (vitamin B6) [Vitamin B-6] 250 mg Tablet 500 mg PO DAILY@08 magnesium L-lactate 84 mg tablet extended release 84 mg PO DAILY@08 aspirin 81 mg Tablet,Delayed Release (Dr/Ec) 81 mg PO DAILY Qty: 30 0RF midodrine 5 mg Tablet 5 mg PO TID PRN (Reason: SBP less than 110 mmhg) Qty: 15 0RF atorvastatin 40 mg Tablet 40 mg PO BEDTIME@20 Qty: 60 0RF bumetanide 2 mg tablet See Rx Instructions .ROUTE .COMPLEX Rx Instructions: TAKE 2 MG BY MOUTH TWICE DAILY ON SUNDAY, SUNDAY, SUNDAY, AND SUNDAY. metoprolol tartrate 50 mg tablet 50 mg PO BID insulin glargine [Lantus Solostar U-100 Insulin] 100 unit/mL (3 mL) insulin pen 12 unit SUBCUT BEDTIME Held polyethylene glycol 3350 [Miralax] 17 gram/dose Powder See Rx Instructions .ROUTE .COMPLEX Hold Instructions: diarrhea Rx Instructions: MIX 17G (1 CAPFUL) IN 8 OUNCES LIQUID AND DRINK ENTIRE LIQUID DAILY. Discharge Orders: Discharge Order (Routine); Ordered 12/20/23 Ordered By: Adriane Terry Referrals: Davion Griggs MD [Primary Care Provider] - 1-3 days Discharge Diet: Usual diet Discharge Activity: Resume usual activity Patient Instructions: Opioid Safety Discharge Attestations Time Spent in Discharge Care*: greater than 30 min Status at Discharge: Cognitive status at discharge: cognitively intact , Behavioral status at discharge: cooperative , Quality Metrics Clinical Quality Measures [ No reported AMI, CVA or VTE this stay] Coding Level of Care Code 23918 Total time (in minutes) for Discharge: 30 Diagnoses End stage renal disease on dialysis N18.6; Z99.2
--- NOTE | 2023-12-20 11:57 | PC.HD ---
Heparin 1000 units loading dose administered via venous port of HD catheter at 1136 per gravure press set up operator's orders. Patient's BP was low prior to treatment initiation; therefore, dialysate temperature was reduced to 35.0C per gravure press set up operator's hypotension dialysis orders. Also, albumin x2 were obtained; albunin #1 initiated at treatment start.
--- NOTE | 2023-12-20 13:17 | P.PN_ITS ---
Subjective 2 Subjective: DENIES ANY COMPLAINTS Medications: Reviewed: Yes Vitals/I&O/Wt Last Vital Signs Temp 97.7 F 12/20/23 14:58 Pulse 92 12/20/23 14:58 Resp 16 12/20/23 14:58 BP 105/71 12/20/23 14:58 Pulse Ox 100 12/20/23 14:58 O2 Del Method Nasal Cannula 12/20/23 09:11 O2 Flow Rate 2 12/20/23 09:11 12/20/23 12/20/23 12/20/23 06:59 14:59 22:59 Intake Total 728 / 728 0 / 728 Output Total 2122 / 2122 Balance -1394 / -1394 0 / -1394 Weight last 48 hrs Weight 86.9 kg Weight 88.224 kg Weight 87.861 kg Weight 90.492 kg Weight 91.535 kg Physical Exam 2 Narrative: Awake alert, no distress NO EDEMA Urinary Catheter Management: Manzanares: Cath Placed During This Visit: yes, but has since been removed by the nurse Reason for Continuing Indwelling Catheter: Decision to DC Catheter Urinary Catheter Date of Insertion: 10/12/23 Urinary Catheter Time of Insertion: 03:57 Date Urinary Catheter Removed: 10/18/23 Time Urinary Catheter Discontinued: 15:12 Data 12/20/23 05:05 12/20/23 05:05 Micro: Microbiology 12/18/23 15:10 Blood Culture - Preliminary Blood NEGATIVE TO DATE 12/18/23 15:18 Blood Culture - Preliminary Blood NEGATIVE TO DATE A&P Assessment and plan (1) End stage renal disease on dialysis: Plan 1. End-stage renal disease: MWF schedule as outpatient, HD YESTERDAY AND HD AGAIN TODAY TO GET HER BACK TO TTS SCHEDULE 2. Hypertension: Blood pressure controlled 3. Anemia: CARY with HD, PLAN FOR TRANSFUSION 4. Hypokalemia: Can replace K, needs 3K bath 4. C. difficile colitis Patient evaluated using unusual cart. Time spent 40 minutes Attestations 2 Medical Necessity Statement*: PER ALBINO Coding Level of Care Code Acute Code for Chg Fwd Diagnoses End stage renal disease on dialysis N18.6; Z99.2
--- NOTE | 2023-12-20 14:21 | PC.HD ---
Dialysis UF goal was 2000 mL. Patient maintained soft BPs throughout, despite receiving two units of albumin at treatment initiation. As treatment progressed, 100 mL NSS bolus was administered and UF goal was reduced to 300 mL/hour per rubber splicer's hypotension dialysis orders. UF goal was 2000, net 1722 removed. Application Processor notified.
--- NOTE | 2023-12-20 15:08 | PC.NURSE ---
The Blood was started at 1458. The documentation shows it started at 1505 which is not correct. Patient resting comfortable in bed with eyes closed. Patient verbally able to answer all questions.
[2023-12-20 15:44] LABS: SARS Covid-2 Antigen negative (Negative)
[2023-12-20 17:07] LABS: Glucose Point of Care 137 mg/dL (70-110)
[2023-12-20] MEDS: atorvastatin 40 mg Tablet PO (20:52)
[2023-12-20] MEDS: HYDROcodone-acetaminophen 5-325 mg Tablet 1 TAB PO (20:52)
[2023-12-20 22:07] LABS: Glucose Point of Care 149 mg/dL (70-110)
--- OUTSIDE RECORDS SUMMARY | 2023-12-26 13:56 | XMS_ITS ---
Author Name Mony Hatfield Address [address] [place] [address] Phone [phone] Organization [facility] e, NA DOCUMENT DISCLAIMER Multiple document versions may exist, please be sure you review the latest version. The information in the [facility] Progress Note Document represents a providers documented clinical note containing certain health and medical information. It may not contain the complete medical history for the patient and should be independently verified. The represented time in the document is Eastern Time PROVIDER ROUNDING NOTE COMPREHENSIVE Patient:?Myesha?Elena,?1950,?73y,?F Dialysis?Location:?[facility] Attending?Senior Estimator:?Talita Service?Date:?11/15/2023 Service?Provider:?Mony?Liu,?COLOR MIXER I?met?face?to?face?with?the?patient?today. 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 Medications?and?labs?reviewed. LAST?HOSPITALIZATION Discharge?Diagnosis:?J96.01?Acute?respiratory?failure?with?hypoxia J96.02?Acute?respiratory?failure?with?hypercapnia I50.20?Unspecified?systolic?(congestive)?heart?failure I21.4?Non-ST?elevation?(NSTEMI)?myocardial?infarction I48.91?Unspecified?atrial?fibrillation Admission?Date?10/12/23 Discharge?Date?10/20/23 Comments:?Reviewed?hospital?records:?she?is?esrd.? Nad?today,?continue?current?dialysis?orders. DIALYSIS?PRESCRIPTION ??IHD?3x?Week?Start?date:?11/10/23 ??Dialyzer:?180NRe?Optiflux ??BFR:?450 ??DFR:?Autoflow?1.5 ??Potassium:?3.0 ??Sodium:?138 ??EDW:?93.4 ??Duration:?3:30 ??Calcium:?2.5 ??Bicarb:?30 ??Rx?updated?on:?11/10/2023 TREATMENT?ASSESSMENT Comments:?Bp?soft,?verifying?medication?list?with?ltc,?then& #160;adjust?as?indicated.?? BP?Sit?Pre ??11/10/2023:?111/72 ??11/08/2023:?117/73 ??11/06/2023:?117/70 BP?Sit?Post ??11/10/2023:?155/98 ??11/08/2023:?102/67 ??11/06/2023:?127/74 Tx?Duration ??11/10/2023:?2:57 ??11/08/2023:?3:31 ??11/06/2023:?3:30 Missed?Treatments 0?-?last?30?days 1?-?last?60?days 23?-?recent FLUID?ASSESSMENT Comments:?Adjust?edw?to?93.0kg,?challenge?by?0.5?kg?per?tx?as?tolerated.?? EDW?(kg) ??11/10/2023:?94.5 ??11/08/2023:?94.5 ??11/06/2023:?95.5 Weight?Pre?(kg) ??11/10/2023:?92.8 ??11/08/2023:?93.6 ??11/06/2023:?94.4 Weight?Post?(kg) ??11/10/2023:?93.4 ??11/08/2023:?93.4 ??11/06/2023:?93.8 PWV?(kg) ??11/10/2023:?-1.1 ??11/08/2023:?-1.1 ??11/06/2023:?-1.7 UF?Rate?(mL/kg/hr) ??11/10/2023:?-2.2 ??11/08/2023:?0.6 ??11/06/2023:?1.8 ADEQUACY?ASSESSMENT Comments:?Current?serum?creatinine?below?2,?patient?is?cache xic,?morbidly?obese,?without?muscle?mass Kt/v?at?goal. spKt/V,?URR ??11/01/2023:?1.65,?77.0 ??10/23/2023:?1.59,?77.0 ??08/30/2023:?1.72,?79.0 ?? Urine?Cr?Clearance ??09/11/2023:?30.5 ACCESS?ASSESSMENT ??Access?Type:?CVCatheter ??Access?SubType:?Tunneled ??Access?Status:?Active?(In?Use)?-?08/17/2023 ??Access?Location:?Chest ??Placed:?08/13/2023 Vascular?access?reviewed.?Current?access?is?permanent?and?functioning?well. ANEMIA?ASSESSMENT Comments:?On?IV?Iron?and?CARY?protocol. HGB,?TSAT ??11/08/2023:?8.2,?- ??11/01/2023:?8.4,?13.0 ??10/25/2023:?8.5,?- ?? Ferritin ??11/01/2023:?217.0 ??10/23/2023:?125.0 ??08/23/2023:?155.0 Mircera,?IVP?(mcg) ??11/01/2023:?75 ??09/13/2023:?75 ??08/30/2023:?50 Iron?Sucrose?(Venofer)?(mg) ??11/10/2023:?100 ??11/08/2023:?100 ??11/06/2023:?100 BMM?ASSESSMENT Phosphorus,?Calcium ??11/01/2023:?3.7,?9.0 ??10/23/2023:?4.6,?9.3 ??08/30/2023:?3.7,?9.0 ?? PTH,?Intact ??11/01/2023:?92.0 ??10/23/2023:?80.0 ??08/23/2023:?134.0 NUTRITION?ASSESSMENT Comments:?Continue?with?protein?supplements,?protein?focus.?&#160 ;No?new?labs?to?reveiw Albumin,?Potassium ??11/01/2023:?3.3,?3.6 ??10/23/2023:?3.5,?4.0 ??09/13/2023:?-,?4.1 ?? eNPCR ??11/01/2023:?0.99 ??08/30/2023:?0.56 PHYSICAL?EXAM Comments:?Morbidly?obese Exam?Not?Performed. DIAGNOSIS Chief?Complaint:?N18.6?End?stage?renal?disease Patient?data?updated?11/15/2023?at?11:38?AM Signed?By:?Liu,?Mony,?COLOR MIXER??on?11/15/2023?11:49:35 AM END OF DOCUMENT
--- OUTSIDE RECORDS SUMMARY | 2023-12-26 13:56 | XMS_ITS | Patient Health Record ---
Author Name Unknown Organization [facility] Address [address] [place], [place] [id number] Care Team Providers Care Client Service Consultant Name Role Phone Davion Griggs MD Primary Care Provider Celestino Macario MD, Yonatan Unavailable [phone] Cyndi Grady Unavailable [phone] ALLERGIES Allergen (clinical drug ingredient) Drug/Non Drug Allergy documented on EMR Reaction Allergy Type Onset Date Status cinnamon (uncoded) Unknown Allergy Active pine (uncoded) Unknown Allergy Activ e vinyl tape (uncoded) Unknown Allergy Active codeine codeine stomach upset, dizziness, disorientation Drug Allergy Active REASON FOR REFERRAL No Information MEDICATIONS Medication SIG (Take, Route, Frequency, Duration) Notes Start Date End Date Status triamcinolone topical 0.1% 1 ghislaine applied topically as directed Active sulfaSALAzine 500 mg 1 tab orally 2 time s a day Active pyRIDostigmine 60 mg 1/2 tab orally 2 ti mes a day Active Papaya Enzyme as directed Acti ve Pantothenic Acid 550 mg as directed Active pantoprazole 40 mg 1 tab orally 2 times a day Active Oxygen 2 liters @ hs per nasal cannu la as directed Active [place]ham-3 1000 mg 1 cap orally once a day Active insulin lispro 100 units/mL as directed subcutaneously Active nitroglycerin 0.4 mg 1 tab sublingually as directed Active imiquimod topical 5% 1 ghislaine applied topic ally as directed Active hydrocortisone topical 2.5% 1 ghislaine applie d topically as directed Active hydrALAZINE 10 mg 1 tab orally 3 times a day Active Garlic 1 caplet orally once daily for 30 days Active furosemide 20 mg 1 tab orally once a day Active folic acid 1 mg 1 tab orally once a day Active ferrous gluconate 324 mg 1 tab orally once a day Active DULoxetine 60 mg 1 cap with 30 mg cap carlitos orally once a day Active doxycycline hyclate 100 mg 1 cap(s) oral ly 2 times a day for 10 day(s) 03/20/2023 Active mupirocin topical 2% 1 ghislaine applied topic ally 3 times a day Active MSM (methylsulphonylmethane) 1000 mg orally as directed Active Metoprolol Tartrate 100 mg 1 tab orally once a day Active acetaminophen-hydrocodone 325 mg-7.5 mg 1 tab orally Q4-6H prn severe pain (max 3/day; hold within 4H of planned sleep) Active methotrexate 2.5 mg as directed orally o nce a week Active traMADol 50 mg 1 tab orally Q4H prn pain (max 4/day; hold within 4H of planned sleep) Active magnesium lactate 84 mg 1 tab orally 2 t imes a day Active loratadine 10 mg 1 tab orally once a day, as needed Active Zinc 140 mg (as elemental zinc 50 mg) 1 tab(s) orally once a day for 30 day(s) Active loperamide 2 mg 1 cap orally every 4 hours Active vitamin E 100 intl units 1 cap orally once a day Active lisinopril 40 mg 1 tab orally once a day Active Vitamin D3 50 mcg 1 tab orally once a day Active levothyroxine 150 mcg (0.15 mg) 1 tab orally once a day Acti ve Vitamin B6 100 mg 1 tab orally once a day Active docusate sodium 100 mg 1 cap orally 2 ti mes a day Active ketoconazole topical 2% 1 ghislaine applied to pically as directed Active Vitamin B2 100 mg 1 tab orally once a day Active diphenhydrAMINE 25 mg 1 tab orally every 6 hours, as needed Active Vitamin B12 1000 mcg 1 tab orally once a day Active digoxin 125 mcg (0.125 mg) 1/2-1 tab ora lly as directed Active Tums Chewy Bites 750 mg 1 tab chewed onc e a day, as needed Active acetaminophen-hydrocodone 325 mg-7.5 mg 1 tab po orally Q4-6H prn severe pain (max 3/day; hold within 4H of planned sleep) for 30 day(s) 03/19/2023 Active Cranberry Supplement as directed Active Chlorpheniramine (Allergy) Active Calcium 600+D 600 mg-20 mcg 1 tab orally 2 times a day Active black cohosh Active atorvastatin 80 mg 1 tab orally once a day Active albuterol 2.5 mg/3 mL (0.083%) 3 mL by nebulizer every 4 hours, as needed Active SOCIAL HISTORY Tobacco Use: Social History Observation Description Date Details (start date - stop date) Former Smoker NA - NA Sex Assigned At : Social History Observation Description Sex Assigned At Unknown alcohol Question Answer Notes Did you have a drink containing alcohol in the p ast year? No Points 0 Interpretation Negative Tobacco use: Question Answer Notes : former smoker When did you stop smoking? 2007 PROBLEMS Problem Type ICD Code Onset Dates Problem Status W/U Status Risk SNOMED Code Notes Problem Sacroiliitis (720.2) Active confirmed Solitary sacroiliitis (825106255) Problem Low back pain (724.2) Active confirmed Low back pain (314229397) Problem LONG-TERM USE MEDS NEC (V58.69) Active confirmed Long-term drug therapy (196920854) r/o substance abuse Problem Anxiety State, other, specified: procedure related (300.09) Active confirmed Anxiety sta te (434319684) Problem Sleep apnea, obstructive (327.23) Active confirmed Obstructive sleep apnea syndrome (18832252) Problem Sacroiliitis, not elsewhere classified (M46.1) Active confirmed Solitary sacroiliitis (002785097) Problem Spondylosis without myelopathy or radiculopathy, lumbar region (M47.816) Active confirmed Lumbosacral spondylosis without myelopathy (24349651) Problem long term care phlebotomist (current) use of opiate analgesic (Z79.891) Active confirmed High risk drug monitoring status (904110110) Problem Obstructive sleep apnea (adult) (pediatric) (G47.33) Active confirmed Obstructive sleep apnea syndrome (86759995) Problem Other chronic pain (G89.29) Active confirmed Chronic pain (43802129) Problem Intervertebral disc disorders with radiculopathy, lumbar region (M51.16) Active confirmed Radiculopathy due to lumbar intervertebral disc disorder (331979734605545 ) Problem Dorsalgia, unspecified (M54.9) Active confirmed Backache (514310740) Problem Other mcc (current) drug therapy (Z79.899) Active confirmed Long-term current use of drug therapy (070510498) Problem Vertebrogenic low back pain (M54.51) Active confirmed Pain in lumbar spine (814780657) VITAL SIGNS Temperature 97.3 degrees Fahrenheit 06/27/2023 Macie ent reported weight Oximetry 92 % 06/27/2023 Patient reporte d weight Height 65 in 06/27/2023 Patient reporte d weight Weight 223 lbs 06/27/2023 Patient reporte d weight BMI 37.11 kg/m2 06/27/2023 Patient reporte d weight Encounters Encounter Location Date Provider Diagnosis [facility] [employer] [address] [place], [place] [id number] 03/20/2023 Cyndi Avendaño Vertebrogenic low ba ck pain M54.51 ; Other chronic pain G89.29 and Obstructive sleep apnea (adult) (pediatric) G47.33 [facility] [address] [place], [place] [id number] 06/27/2023 Cyndi Avendaño Vertebrogenic low ba ck pain M54.51 ; Other chronic pain G89.29 and Obstructive sleep apnea (adult) (pediatric) G47.33 [facility] [address] [place], [place] [id number] 09/11/2023 Yonatan Macario Vertebrogenic low ba ck pain M54.51 ; Other chronic pain G89.29 and Obstructive sleep apnea (adult) (pediatric) G47.33 [facility] [address] [place], [place] [id number] 09/11/2023 Yonatan Macario Procedure and treatment not carried out because of patient's decision for unspecified reasons Z53.20 ASSESSMENTS Encounter Date Diagnosis Assessment Notes Treatment Notes Treatment Clinical Notes 03/20/2023 Other chronic pain (ICD-10 - G89.29) Patient reports that taking her pain medication allows her to transfer to / from her wheelchair and travel to / from her doctors appointments with more ease. Plan to continue oral opioid medication management 03/20/2023 Vertebrogenic low back pain (ICD-10 - M54.51) Chronic axial lumbosacral spine pain 06/27/2023 Vertebrogenic low back pain (ICD-10 - M54.51) Chronic axial lumbosacral spine pain. 09/11/2023 Vertebrogenic low back pain (ICD-10 - M54.51) Chronic axial lumbosacral spine pain. 09/11/2023 Procedure and treatment not carried out because of patient's decision for unspecified reasons (ICD-10 - Z53.20) 09/11/2023 Other chronic pain (ICD-10 - G89.29) Patient reports that taking her pain medication allows her to get to her many doctors appointments. Plan to continue oral opioid medication management. 03/20/2023 Obstructive sleep apnea (adult) (pediatric) (ICD-10 - G47.33) Patient reports inconsistent use of her CPAP device, however, uses her oxygen nightly 06/27/2023 Obstructive sleep apnea (adult) (pediatric) (ICD-10 - G47.33) Patient reports she has a new BiPAP device to use with her oxygen nightly. 06/27/2023 Other chronic pain (ICD-10 - G89.29) Patient reports that taking her pain medication allows her to get to her many doctors appointments. Plan to continue oral opioid medication management. 09/11/2023 Obstructive sleep apnea (adult) (pediatric) (ICD-10 - G47.33) Patient reports she has a new BiPAP device to use with her oxygen nightly. 03/20/2023 Other eRx function on computer is currently disabled. Printed Rxs x 4 given patient 06/27/2023 Other Above prescript ions printed for fill in 07/2023 as patient has left over prescriptions and refills due to a 2 months stay in the hospital / rehab unit. 09/11/2023 Other PLAN OF TREATMENT No Information Insurance Providers Payer Name Payer Address Payer Phone Subscriber Number Group Number Insured Name Patient Relationship to Insured Coverage Start Date Coverage End Date [employer] [address] [place] [phone] [id number] [facility] Myesha Parker Self - patient is the insured 4 MEDICAL (GENERAL) HISTORY Medical History History ICD Code Chronic pain Low back pain Llumbar spondylosis Sacroiliitis Degenerative disc disease, cervical and lumbar Osteoarthritis Muscle spasms Knee pain, left Knee pain, right Left rib pain Fibromyalgia Hypothyroidism Neuropathy Hypertension Hyperlipidemia Steatohepatitis, non-alcoholic Atrial fibrillation Congestive heart failure Gastroesophageal reflux disease Hypoxia Rheumatoid arthritis, histor y of (note in record review: absence of lab and clinical findings to support dx) Graves' disease Grade I diastolic dysfunction Chronic obstructive pulmonary disease Anemia Skin cancer Rheumatoid arthritis Renal stones Anxiety disorder Type II diabetes Asthma Cardiomegaly Chronic kidney disease stage 3a Obesity, morbid in past (mild to moderat e since) Supplemental oxygen use Sleep apnea Surgical History Surgery Date(Month/Year) Knee replacement, bilateral, 2006 Hysterectomy, 02/04/02 Angioplasty 2005 Cholecystectomy Right eye, 2019 Hospitalization History Reason Date(Month/Year) pneumonia, 2011, 2013, 2015 congestive heart failure, 2011, 2015 Stroke, treated at [facility], 04/18/23-06/01/23 Respiratory illness, treated at [facility], 2022
--- OUTSIDE RECORDS SUMMARY | 2023-12-26 13:56 | XMS_ITS ---
Author Name Mony Hatfield Address [address] [place] [address] Phone [phone] Organization [facility] e, NA DOCUMENT DISCLAIMER Multiple document versions may exist, please be sure you review the latest version. The information in the [facility] Progress Note Document represents a providers documented clinical note containing certain health and medical information. It may not contain the complete medical history for the patient and should be independently verified. The represented time in the document is Eastern Time PROVIDER ROUNDING NOTE COMPREHENSIVE Patient:?Myesha?Elena,?1950,?73y,?F Dialysis?Location:[facility] Attending?Logistics Supply Officer:?Talita Service?Date:?10/25/2023 Service?Provider:?Mony?Liu,?RN VISITING I?met?face?to?face?with?the?patient?today. 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 Medications?and?labs?reviewed. LAST?HOSPITALIZATION Discharge?Diagnosis:?J96.01?Acute?respiratory?failure?with?hypoxia J96.02?Acute?respiratory?failure?with?hypercapnia I50.20?Unspecified?systolic?(congestive)?heart?failure I21.4?Non-ST?elevation?(NSTEMI)?myocardial?infarction I48.91?Unspecified?atrial?fibrillation Admission?Date?10/12/23 Discharge?Date?10/20/23 Comments:?Reviewed?hospital?records:?she?is?esrd.? Nad?today,?continue?current?dialysis?orders. DIALYSIS?PRESCRIPTION ??IHD?3x?Week?Start?date:?10/23/23 ??Dialyzer:?180NRe?Optiflux ??BFR:?450 ??DFR:?Autoflow?1.5 ??Potassium:?3.0 ??Sodium:?138 ??EDW:?97.2 ??Duration:?3:30 ??Calcium:?2.5 ??Bicarb:?32 ??Rx?updated?on:?10/23/2023 TREATMENT?ASSESSMENT BP?Sit?Pre ??10/23/2023:?100/66 ??09/13/2023:?120/84 ??09/11/2023:?104/64 BP?Sit?Post ??10/23/2023:?118/66 ??09/13/2023:?127/62 ??09/11/2023:?115/70 Tx?Duration ??10/23/2023:?3:30 ??09/13/2023:?3:32 ??09/11/2023:?3:31 Missed?Treatments 0?-?last?30?days 2?-?last?60?days 09/18?-?recent FLUID?ASSESSMENT EDW?(kg) ??10/23/2023:?110.0 ??09/13/2023:?98.2 ??09/11/2023:?97.2 Weight?Pre?(kg) ??10/23/2023:?97.0 ??09/13/2023:?99.8 ??09/11/2023:?98.6 Weight?Post?(kg) ??10/23/2023:?97.2 ??09/13/2023:?99.8 ??09/11/2023:?98.8 PWV?(kg) ??10/23/2023:?-12.8 ??09/13/2023:?1.6 ??09/11/2023:?1.6 UF?Rate?(mL/kg/hr) ??10/23/2023:?-0.6 ??09/13/2023:?0 ??09/11/2023:?-0.6 ADEQUACY?ASSESSMENT Comments:?Current?serum?creatinine?below?2,?patient?is?cache xic,?morbidly?obese,?without?muscle?mass spKt/V,?URR ??10/23/2023:?1.59,?77.0 ??08/30/2023:?1.72,?79.0 ??08/23/2023:?1.55,?73.0 ?? Urine?Cr?Clearance ??09/11/2023:?30.5 ACCESS?ASSESSMENT ??Access?Type:?CVCatheter ??Access?SubType:?Tunneled ??Access?Status:?Active?(In?Use)?-?08/17/2023 ??Access?Location:?Chest ??Placed:?08/13/2023 Vascular?access?reviewed. ANEMIA?ASSESSMENT Comments:?On?IV?Iron?and?CARY?protocol. HGB,?TSAT ??10/23/2023:?8.8,?11.0 ??09/13/2023:?8.5,?- ??09/06/2023:?8.6,?- ?? Ferritin ??10/23/2023:?125.0 ??08/23/2023:?155.0 Mircera,?IVP?(mcg) ??09/13/2023:?75 ??08/30/2023:?50 Iron?Sucrose?(Venofer)?(mg) ??09/13/2023:?100 ??09/11/2023:?100 ??09/06/2023:?100 BMM?ASSESSMENT PTH?controlled.?Calcium?controlled.?Phosphorus?controlled.?BMM?me ds?adherence?acceptable.?No?changes?indicated.? Phosphorus,?Calcium ??10/23/2023:?4.6,?9.3 ??08/30/2023:?3.7,?9.0 ??08/23/2023:?2.8,?8.7 ?? PTH,?Intact ??10/23/2023:?80.0 ??08/23/2023:?134.0 NUTRITION?ASSESSMENT Potassium?controlled.?Albumin?controlled.?No?changes?indicated.? Albumin,?Potassium ??10/23/2023:?3.5,?4.0 ??09/13/2023:?-,?4.1 ??09/06/2023:?-,?4.3 ?? eNPCR ??08/30/2023:?0.56 PHYSICAL?EXAM Exam?Not?Performed. DIAGNOSIS Chief?Complaint:?N18.6?End?stage?renal?disease Patient?data?updated?10/25/2023?at?12:34?PM Signed?By:?Liu,?Mony,?RN VISITING??on?10/25/2023?12:42:09 PM END OF DOCUMENT
--- OUTSIDE RECORDS SUMMARY | 2023-12-26 13:56 | XMS_ITS ---
Author Name Maria T Uriarte Address [address] [place] [id number] Phone [phone] Organization [facility] e, NA DOCUMENT DISCLAIMER Multiple document versions may exist, please be sure you review the latest version. The information in the [facility] Progress Note Document represents a providers documented clinical note containing certain health and medical information. It may not contain the complete medical history for the patient and should be independently verified. The represented time in the document is Eastern Time PROVIDER ROUNDING NOTE COMPREHENSIVE Patient:?Myesha?Elena,?1950,?73y,?F Dialysis?Location:[facility] Attending?Mouse Breeder:?Talita Service?Date:?12/04/2023 Service?Provider:?Maria T?Chapito,? I?met?face?to?face?with?the?patient?today. 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 these?episodes?and?it?is?easing?up .?Did ?discuss?end-of-life?measures?today.?She?is?thinking?about&# 160;this?but?no?decision?on?hospice?yet. Medications?and?labs?reviewed. LAST?HOSPITALIZATION Discharge?Diagnosis:?J96.01?Acute?respiratory?failure?with?hypoxia J96.02?Acute?respiratory?failure?with?hypercapnia I50.20?Unspecified?systolic?(congestive)?heart?failure I21.4?Non-ST?elevation?(NSTEMI)?myocardial?infarction I48.91?Unspecified?atrial?fibrillation Admission?Date?10/12/23 Discharge?Date?10/20/23 DIALYSIS?PRESCRIPTION ??IHD?3x?Week?Start?date:?11/27/23 ??Dialyzer:?180NRe?Optiflux ??BFR:?450 ??DFR:?Autoflow?1.5 ??Potassium:?3.0 ??Sodium:?138 ??EDW:?91 ??Duration:?3:30 ??Calcium:?2.5 ??Bicarb:?30 ??Rx?updated?on:?11/27/2023 TREATMENT?ASSESSMENT Blood?pressure?controlled.?No?changes?indicated.? BP?Sit?Pre ??11/29/2023:?104/64 ??11/27/2023:?116/77 ??11/24/2023:?91/62 BP?Sit?Post ??11/29/2023:?100/62 ??11/27/2023:?110/65 ??11/24/2023:?125/69 Tx?Duration ??11/29/2023:?3:30 ??11/27/2023:?3:30 ??11/24/2023:?3:30 Missed?Treatments 2?-?last?30?days 2?-?last?60?days 4/6?-?recent FLUID?ASSESSMENT Comments:?She?has?not?been?eating?or?drinking?very?much ?for?she?does?not?have?an?appetite.?Minimal?UF.?No?leg?edema. EDW?(kg) ??11/29/2023:?91.0 ??11/27/2023:?92.5 ??11/24/2023:?92.5 Weight?Pre?(kg) ??11/29/2023:?91.2 ??11/27/2023:?91.0 ??11/24/2023:?91.6 Weight?Post?(kg) ??11/29/2023:?91.5 ??11/27/2023:?90.8 ??11/24/2023:?91.8 PWV?(kg) ??11/29/2023:?0.5 ??11/27/2023:?-1.7 ??11/24/2023:?-0.7 UF?Rate?(mL/kg/hr) ??11/29/2023:?-0.9 ??11/27/2023:?0.6 ??11/24/2023:?-0.6 ADEQUACY?ASSESSMENT Adequacy?target?met.?Prescription?compliance?acceptable.? spKt/V,?URR ??11/29/2023:?1.78,?80.0 ??11/01/2023:?1.65,?77.0 ??10/23/2023:?1.59,?77.0 ?? Urine?Cr?Clearance ??09/11/2023:?30.5 ACCESS?ASSESSMENT ??Access?Type:?CVCatheter ??Access?SubType:?Tunneled ??Access?Status:?Active?(In?Use)?-?08/17/2023 ??Access?Location:?Chest ??Placed:?08/13/2023 Vascular?access?reviewed.?Referral?made?for?access?revision/ intervention. ANEMIA?ASSESSMENT Comments:?On?IV?Iron?and?CARY?protocol. HGB,?TSAT ??11/29/2023:?8.3,?18.0 ??11/22/2023:?8.2,?- ??11/15/2023:?8.9,?- ?? Ferritin ??11/01/2023:?217.0 ??10/23/2023:?125.0 ??08/23/2023:?155.0 Mircera,?IVP?(mcg) ??11/29/2023:?150 ??11/15/2023:?100 ??11/01/2023:?75 Iron?Sucrose?(Venofer)?(mg) ??11/20/2023:?100 ??11/17/2023:?100 ??11/15/2023:?100 BMM?ASSESSMENT PTH?low.?Calcium?controlled.?Phosphorus?controlled.?No?changes indicated.? Phosphorus,?Calcium ??11/29/2023:?3.4,?8.8 ??11/01/2023:?3.7,?9.0 ??10/23/2023:?4.6,?9.3 ?? PTH,?Intact ??11/01/2023:?92.0 ??10/23/2023:?80.0 ??08/23/2023:?134.0 NUTRITION?ASSESSMENT Comments:?Continue?with?protein?supplements,?protein?focus.?&#160 ;No?new?labs?to?reveiw Albumin,?Potassium ??11/29/2023:?3.1,?3.6 ??11/01/2023:?3.3,?3.6 ??10/23/2023:?3.5,?4.0 ?? eNPCR ??11/29/2023:?1.25 ??11/01/2023:?0.99 ??08/30/2023:?0.56 PHYSICAL?EXAM Comments:?Morbidly?obese Exam?Performed.?Vital?Signs?Reviewed.?Lungs?-?Clear.?CV&#160 ;-?Blood?pressure?noted.?CV?-?RRR.?EXT?-?No?edema.?EXT?-?No?ulcers. 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 Patient?data?updated?12/04/2023?at?1:37?PM Signed?By:?Chapito,?Maria T???on?12/04/2023?1:50:21?PM END OF DOCUMENT
--- OUTSIDE RECORDS SUMMARY | 2023-12-26 13:56 | XMS_ITS ---
Author Name Maria T Uriarte Address [address] [place] [id number] Phone [phone] Organization [facility] e, NA DOCUMENT DISCLAIMER Multiple document versions may exist, please be sure you review the latest version. The information in the [facility] Progress Note Document represents a providers documented clinical note containing certain health and medical information. It may not contain the complete medical history for the patient and should be independently verified. The represented time in the document is Eastern Time PROVIDER ROUNDING NOTE COMPREHENSIVE Patient:?Myesha?Elena,?1950,?73y,?F Dialysis?Location:?[facility] Attending?Flavoring Machine Operator:?Talita Service?Date:?10/30/2023 Service?Provider:?Maria T?Chapito,? I?met?face?to?face?with?the?patient?today. 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 Medications?and?labs?reviewed. LAST?HOSPITALIZATION Discharge?Diagnosis:?J96.01?Acute?respiratory?failure?with?hypoxia J96.02?Acute?respiratory?failure?with?hypercapnia I50.20?Unspecified?systolic?(congestive)?heart?failure I21.4?Non-ST?elevation?(NSTEMI)?myocardial?infarction I48.91?Unspecified?atrial?fibrillation Admission?Date?10/12/23 Discharge?Date?10/20/23 Comments:?Reviewed?hospital?records:?she?is?esrd.? Nad?today,?continue?current?dialysis?orders. DIALYSIS?PRESCRIPTION ??IHD?3x?Week?Start?date:?10/23/23 ??Dialyzer:?180NRe?Optiflux ??BFR:?450 ??DFR:?Autoflow?1.5 ??Potassium:?3.0 ??Sodium:?138 ??EDW:?97.2 ??Duration:?3:30 ??Calcium:?2.5 ??Bicarb:?32 ??Rx?updated?on:?10/23/2023 TREATMENT?ASSESSMENT Blood?pressure?controlled.?No?changes?indicated.? BP?Sit?Pre ??10/27/2023:?121/77 ??10/25/2023:?115/78 ??10/23/2023:?100/66 BP?Sit?Post ??10/27/2023:?123/86 ??10/25/2023:?107/66 ??10/23/2023:?118/66 Tx?Duration ??10/27/2023:?1:53 ??10/25/2023:?3:35 ??10/23/2023:?3:30 Missed?Treatments 0?-?last?30?days 2?-?last?60?days 09/18?-?recent FLUID?ASSESSMENT EDW?(kg) ??10/27/2023:?97.2 ??10/25/2023:?97.2 ??10/23/2023:?110.0 Weight?Pre?(kg) ??10/27/2023:?98.2 ??10/25/2023:?98.0 ??10/23/2023:?97.0 Weight?Post?(kg) ??10/27/2023:?98.2 ??10/25/2023:?96.8 ??10/23/2023:?97.2 PWV?(kg) ??10/27/2023:?1.0 ??10/25/2023:?-0.4 ??10/23/2023:?-12.8 UF?Rate?(mL/kg/hr) ??10/27/2023:?0 ??10/25/2023:?3.5 ??10/23/2023:?-0.6 ADEQUACY?ASSESSMENT Comments:?Current?serum?creatinine?below?2,?patient?is?cache xic,?morbidly?obese,?without?muscle?mass Kt/v?at?goal. spKt/V,?URR ??10/23/2023:?1.59,?77.0 ??08/30/2023:?1.72,?79.0 ??08/23/2023:?1.55,?73.0 ?? Urine?Cr?Clearance ??09/11/2023:?30.5 ACCESS?ASSESSMENT ??Access?Type:?CVCatheter ??Access?SubType:?Tunneled ??Access?Status:?Active?(In?Use)?-?08/17/2023 ??Access?Location:?Chest ??Placed:?08/13/2023 Vascular?access?reviewed.?Current?access?is?permanent?and?fu nctioning?well.?Referral?made?for?access?revision/?intervention. ANEMIA?ASSESSMENT Comments:?On?IV?Iron?and?CARY?protocol. HGB,?TSAT ??10/25/2023:?8.5,?- ??10/23/2023:?8.8,?11.0 ??09/13/2023:?8.5,?- ?? Ferritin ??10/23/2023:?125.0 ??08/23/2023:?155.0 Mircera,?IVP?(mcg) ??09/13/2023:?75 ??08/30/2023:?50 Iron?Sucrose?(Venofer)?(mg) ??09/13/2023:?100 ??09/11/2023:?100 ??09/06/2023:?100 BMM?ASSESSMENT PTH?low.?Calcium?controlled.?Phosphorus?controlled.?BMM?meds&#160 ;adherence?acceptable.?No?changes?indicated.? Phosphorus,?Calcium ??10/23/2023:?4.6,?9.3 ??08/30/2023:?3.7,?9.0 ??08/23/2023:?2.8,?8.7 ?? PTH,?Intact ??10/23/2023:?80.0 ??08/23/2023:?134.0 NUTRITION?ASSESSMENT Comments:?Albumin?has?improved?from?prior?lab?of?2.8. Potassium?controlled.?Albumin?below?goal.?No?changes?indicated. Albumin,?Potassium ??10/23/2023:?3.5,?4.0 ??09/13/2023:?-,?4.1 ??09/06/2023:?-,?4.3 ?? eNPCR ??08/30/2023:?0.56 PHYSICAL?EXAM Comments:?Morbidly?obese Exam?Performed.?Vital?Signs?Reviewed.?Lungs?-?Clear.?CV&#160 ;-?Blood?pressure?noted.?CV?-?RRR.?EXT?-?No?edema.?EXT?-?No?ulcers. 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 Patient?data?updated?10/30/2023?at?1:28?PM Signed?By:?Chapito,?Maria T???on?10/30/2023?1:31:53?PM END OF DOCUMENT
== END 2023-12-20 22:50 | disposition skilled nursing facility (03) | DRG 371 ==
LOC: ER 12:21 → MEDSURG 18:22
PROVIDERS: Hospitalist; Admitting Provider Internal Medicine; Emergency Provider Emergency Medicine; PCP Family Medicine; Visit Provider Internal Medicine
DX: A04.72 Enterocolitis due to Clostridium difficile, not specified as recurrent (principal); N18.6 End stage renal disease; I13.2 Hypertensive heart and chronic kidney disease with heart failure and with stage 5 chronic kidney disease, or end stage renal disease; F33.9 Major depressive disorder, recurrent, unspecified; I48.20 Chronic atrial fibrillation, unspecified; J96.11 Chronic respiratory failure with hypoxia; D84.821 Immunodeficiency due to drugs; I50.9 Heart failure, unspecified; I25.10 Atherosclerotic heart disease of native coronary artery without angina pectoris; J44.9 Chronic obstructive pulmonary disease, unspecified; E78.5 Hyperlipidemia, unspecified; G89.29 Other chronic pain; M54.50 Low back pain, unspecified; M06.042 Rheumatoid arthritis without rheumatoid factor, left hand; M06.041 Rheumatoid arthritis without rheumatoid factor, right hand; F41.9 Anxiety disorder, unspecified; E03.9 Hypothyroidism, unspecified; E87.6 Hypokalemia; D63.1 Anemia in chronic kidney disease; L89.152 Pressure ulcer of sacral region, stage 2; I25.2 Old myocardial infarction; Z99.2 Dependence on renal dialysis; Z79.631 Long term (current) use of antimetabolite agent; Z91.158 Patient's noncompliance with renal dialysis for other reason; Z11.52 Encounter for screening for COVID-19; Z74.01 Bed confinement status; Z87.440 Personal history of urinary (tract) infections; Z87.891 Personal history of nicotine dependence
CPT/HCPCS: 36415; 36416; 36430; 71045; 74177; 80048; 80053; 81001; 82962; 83630; 83735; 83880; 84100; 84145; 84443; 84484; 85025; 86706; 86850; 86900; 86920; 87040; 87045; 87070; 87077; 87177; 87186; 87205; 87209; 87324; 87340; 87425; 87426; 87427; 87449; 87493; 90935; 93005; 94664; 96365; 96367; 96372; 99285; G0378; J1644; J1815; J2405; J3475; J3480; J7040; P9040; P9047; Q3014; Q9967

== ENCOUNTER 2023-12-25 08:23 | Emergency (ER) | payer MEDICARE, MEDICAID, SELFPAY ==
[2023-12-25 08:26] VITALS: BP 84/64; PULSE 91; RESP 18; TEMP 36.7; O2SAT 95; BMI 31.8
--- NOTE | 2023-12-25 08:44 | ECG_ITS ---
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 Measurements Intervals [place] Rate: 89 P: 0 AK: 0 QRS: -83 QRSD: 184 T: 88 QT: 427 QTc: 520 Interpretive Statements ATRIAL FIBRILLATION RIGHT BUNDLE BRANCH BLOCK [120+ ms QRS DURATION, UPRIGHT V1, 40+ ms S IN I/aVL/V4/V5/V6] LEFT ANTERIOR FASCICULAR BLOCK [QRS AXIS <= -45, QR IN I, RS IN II] POSSIBLE ANTERIOR MYOCARDIAL INFARCTION , OF INDETERMINATE AGE [30 ms Q WAVE IN V3/V4, OR R < 0.2 mV IN V4] Compared to ECG 12/18/2023 13:22:55 Myocardial infarct finding now present Electronically Signed On 12-25-2023 17:19:13 CDT by Victoriano White M.D. [id number]
[2023-12-25] MEDS: sodium chloride 0.9% 1,000 ML 999 ML IV (09:02)
--- NOTE | 2023-12-25 09:02 | PC.PHAR ---
PTS MAR FROM [facility] STS PTS ATORVASTATIN 40 MG BEDTIME WAS DISC ON 12/18/23
[2023-12-25 09:04] LABS: Basophils % 0.4 %; Eosinophils # 0.3 10^3/uL (0.0-0.8); Eosinophils % 3.2 %; Hematocrit 31.4 % (36-47); Lymphocytes # 0.3 10^3/uL (0.8-4.8); Lymphocytes % 4.2 %; Mean Corpuscular HGB Conc 32.8 g/dL (30-55); Mean Corpuscular Hemoglobin 31.2 pg (27-33); Mean Corpuscular Volume 95.2 fl (85-98); Mean Platelet Volume 9.4 fL (7.4-10.4); Monocytes # 0.1 10^3/uL (0.2-0.9); Neutrophils # 7.39 10^3/uL (1.8-7.7); Neutrophils % 90.1 %; Nucleated Red Blood Cells % 0 %; Platelet Count 131 10^3/cmm (157-399); Red Cell Distribution Width 19.9 % (12.1-15.1); White Blood Count 8.19 10^3/uL (3.29-11.43)
[2023-12-25 09:24] LABS: Alanine Aminotransferase 44 U/L (0-33); Albumin Level 3.4 g/dL (3.5-5.2); Alkaline Phosphatase 171 U/L (35-105); Anion Gap 16.1 (5-19); Aspartate Amino Transferase 49 U/L (0-32); Blood Urea Nitrogen 44 mg/dL (8-23); Calcium 8.5 mg/dL (8.5-10.5); Carbon Dioxide 27 mmol/L (22-29); Chloride 94 mmol/L (98-107); Globulin 3.2 g/dL (1.3-4.6); Glucose 167 mg/dL (65-115); Osmolality Calculated 293 mOsm/kg (285-295); Potassium 3.1 mmol/L (3.5-5.1); Sodium 134 mmol/L (136-145); Total Bilirubin 0.5 mg/dL (0.15-1.2); Total Protein 6.6 g/dL (6.6-8.7)
--- NOTE | 2023-12-25 09:26 | CTR_ITS ---
PROCEDURE INFORMATION: Exam: CT Abdomen And Pelvis Without Contrast Exam date and time: 12/25/2023 10:22 AM Age: 73 years old Clinical indication: Abdominal pain; Generalized; Prior surgery; Surgery date: 6+ months; Surgery type: Gb, hyst TECHNIQUE: Imaging protocol: Computed tomography of the abdomen and pelvis without contrast. Radiation optimization: All CT scans at this facility use at least one of these dose optimization techniques: automated exposure control; mA and/or kV adjustment per patient size (includes targeted exams where dose is matched to clinical indication); or iterative reconstruction. COMPARISON: CT abdomen pelvis wo con [id number] 04/17/2023 10:50 AM RADIATION DOSE METRICS: Total DLP (mGy-cm): 865.11 FINDINGS: Pleural spaces: Bilateral pleural effusions. Atelectasis versus infiltrate right lung base. Heart: Cardiomegaly with coronary and valvular calcification. Liver: Lobulated contour to the liver suspicious for cirrhosis. Gallbladder and bile ducts: The gallbladder is surgically removed. Pancreas: Normal. No ductal dilation. Spleen: Splenic granulomatous disease Adrenal glands: Normal. No mass. Kidneys and ureters: Nonobstructing calculi and benign-appearing cystic lesions in the kidneys. No hydronephrosis. Stomach and bowel: Unremarkable. No obstruction. No mucosal thickening. Appendix: No evidence of appendicitis. Intraperitoneal space: Unremarkable. No free air. No significant fluid collection. Vasculature: Atherosclerotic change of the abdominal vasculature. Lymph nodes: Unremarkable. No enlarged lymph nodes. Urinary bladder: Mild inflammatory change of the urinary bladder. Cystitis not excluded. Reproductive: Unremarkable as visualized. Bones/joints: Degenerative changes of the lumbar spine. Soft tissues: Laxity of the abdominal wall. CT/CT abdomen pelvis con [id number] IMPRESSION: 1. Cardiomegaly with coronary and valvular calcification. Small bilateral pleural effusions right side greater than left. Infiltrate versus atelectasis right lung base. 2. Findings suggestive of cirrhotic liver. Gallbladder is surgically removed. 3. Inflammatory change of the urinary bladder. Cystitis is suspected. No obstructive uropathy. 4. Laxity of the abdominal wall. 5. Severe atherosclerotic change of the abdominal vasculature COMMENTS: Consistent with the [place] [employer]'s Incidental Findings Committee white paper (J Am Cesar Radiol 2018): Any incidental renal lesion less than 1 cm or classified as too small to characterize, or any incidental cystic renal lesion characterized as simple-appearing, is likely benign. No follow-up imaging is recommended for these lesions per consensus recommendations based on imaging criteria.
[2023-12-25 09:27] LABS: Slide Review Slide Review Perform
[2023-12-25 09:28] LABS: Creatinine Clr Calc Pharmacy 22.0151
--- NOTE | 2023-12-25 09:35 | ED_ITS ---
HPI - Syncope 2 General: Chief Complaint: Syncope Stated Complaint: syncopal episode Time Seen by Provider: 12/25/23 08:32 Source: patient Mode of arrival: ambulatory History of Present Illness: 73-year-old female who presents to the e mergency room via EMS after a syncopal episode at the care home. Patient was recently hospitalized discharged home on vancomycin for C. difficile. She is also dialysis patients get dialysis Sunday and Saturdays she is due today. She according to the care home she still is taking her vancomycin. She also has a history of atrial fibrillation and heart failure. She was taking a shower this morning and had a syncopal episode and she was unresponsive for approximately 4 minutes. There is no reported seizure activity. [facility] staff reported she vomited once after she became responsive. There was no hematemesis or coffee-ground emesis. MD complaint: loss of consciousness PFS ED 2 PFSH: Medical History UTI (urinary tract infection) Major depressive disorder, recurrent episode, moderate with anxious distress Duodenal ulcer due to bacteria Psychiatric care Coronary artery disease Immunization counseling High risk medication use Chronic knee pain Chronic low back pain COVID-14 August 2020 Seronegative rheumatoid arthritis of both hands Intermittent atrial fibrillation Poorly controlled diabetes mellitus CHF exacerbation Narrow complex tachycardia Inflammatory arthritis Osteoarthritis of knees, bilateral Fibromyalgia Lung nodule Unstable angina Low back pain of over 3 months duration Urgency incontinence Left renal mass COPD (chronic obstructive pulmonary disease) Oxygen dependent, 2 L at baseline Anxiety and depression Hypothyroidism Liver cirrhosis Hyperlipidemia Hypertension Recurrent UTI Surgical History History of cholecystectomy History of thyroid surgery History of cardiac cath History of hysterectomy History of knee replacement Family History Other CAD (coronary artery disease) Cancer Denies family history of Anesthesia complication Bleeding disorder Social History Smoking and tobacco/nicotine status: former use of tobacco/nicotine Quit status (tobacco/nicotine): has quit using Year quit tobacco: 2005 Second hand smoke exposure: No Alcohol intake: never Substance/Drug Use: never Adopted: No Caregiver/support person: No Lives independently: No Household members: spouse Marital status: Current occupational status: retired Current gender identity: Female Course 2 Vital Signs: Vital signs: Vital Signs Temperature 98.1 F 12/25/23 08:26 Pulse Rate 94 12/25/23 12:02 Respiratory Rate 18 12/25/23 12:02 Blood Pressure 93/59 12/25/23 12:02 Pulse Oximetry 98 12/25/23 12:02 Oxygen Delivery Me thod Nasal Cannula 12/25/23 12:02 Oxygen Flow Rate 3 12/25/23 08:26 MDM - Syncope Medical Decision Making Patient essentially had a syncopal episode while in the shower she is feeling better she given some IV fluids. She is complaining of back and which she describes as buttock pain but these are chronic issues she denies any chest pain at this time. Labs reviewed she is chronically anemic but that is at her baseline. She is mildly thrombocytopenic again at her baseline at this point. She is due for dialysis today we will discharge her from here directly to dialysis and return to the care home follow-up as needed. Medical Records I reviewed the patient's medical records. Lab Data I reviewed the patient's lab results. 12/25/23 08:55 12/25/23 08:55 Radiology Impressions Abdomen/Pelvis CT 12/25/23 09:26 IMPRESSION: 1. Cardiomegaly with coronary and valvular calcification. Small bilateral pleural effusions right side greater than left. Infiltrate versus atelectasis right lung base. 2. Findings suggestive of cirrhotic liver. Gallbladder is surgically removed. 3. Inflammatory change of the urinary bladder. Cystitis is suspected. No obstructive uropathy. 4. Laxity of the abdominal wall. 5. Severe atherosclerotic change of the abdominal vasculature COMMENTS: Consistent with the [place] [employer]'s Incidental Findings Committee white paper (J Am Cesar Radiol 2018): Any incidental renal lesion less than 1 cm or classified as too small to characterize, or any incidental cystic renal lesion characterized as simple-appearing, is likely benign. No follow-up imaging is recommended for these lesions per consensus recommendations based on imaging criteria. Laboratory Results WBC 8.19 10^3/uL (3.29-11.43) 12/25/23 08:55 RBC 3.30 10^6/uL (3.85-5.65) L 12/25/23 08:55 Hgb 10.30 g/dL (11.27-16.99) L 12/25/23 08:55 Hct 31.4 % (36-47) L 12/25/23 08:55 MCV 95.2 fl (85-98) 12/25/23 08:55 MCH 31.2 pg (27-33) 12/25/23 08:55 MCHC 32.8 g/dL (30-55) 12/25/23 08:55 RDW 19.9 % (12.1-15.1) H 12/25/23 08:55 Plt Count 131 10^3/cmm (157-399) L 12/25/23 08:55 MPV 9.4 fL (7.4-10.4) 12/25/23 08:55 Neut % (Auto) 90.1 % 12/25/23 08:55 Lymph % (Auto) 4.2 % 12/25/23 08:55 [place] % (Auto) 1.0 % 12/25/23 08:55 Eos % (Auto) 3.2 % 12/25/23 08:55 Baso % (Auto) 0.4 % 12/25/23 08:55 Neut # (Auto) 7.39 10^3/uL (1.8-7.7) 12/25/23 08:55 Lymph # (Auto) 0.3 10^3/uL (0.8-4.8) L 12/25/23 08:55 [place] # (Auto) 0.1 10^3/uL (0.2-0.9) L 12/25/23 08:55 Eos # (Auto) 0.3 10^3/uL (0.0-0.8) 12/25/23 08:55 Baso # (Auto) 0.0 10^3/uL (0.0-0.1) 12/25/23 08:55 Nucleated RBC % (auto) 0 % 12/25/23 08:55 Nucleated RBCs # 0.0 /100WBC 12/25/23 08:55 Sodium 134 mmol/L (136-145) L 12/25/23 08:55 Potassium 3.1 mmol/L (3.5-5.1) L 12/25/23 08:55 Chloride 94 mmol/L (98-107) L 12/25/23 08:55 Carbon Dioxide 27 mmol/L (22-29) 12/25/23 08:55 Anion Gap 16.1 (5-19) 12/25/23 08:55 BUN 44 mg/dL (8-23) H 12/25/23 08:55 Creatinine 2.4 mg/dL (0.5-0.9) H 12/25/23 08:55 GFR Calculation Not Reportable 12/25/23 08:55 Glucose 167 mg/dL (65-115) H 12/25/23 08:55 Calculated Osmolality 293 mOsm/kg (285-295) 12/25/23 08:55 Calcium 8.5 mg/dL (8.5-10.5) 12/25/23 08:55 Total Bilirubin 0.5 mg/dL (0.15-1.2) 12/25/23 08:55 AST 49 U/L (0-32) H 12/25/23 08:55 ALT 44 U/L (0-33) H 12/25/23 08:55 Alkaline Phosphatase 171 U/L (35-105) H 12/25/23 08:55 Total Protein 6.6 g/dL (6.6-8.7) 12/25/23 08:55 Albumin 3.4 g/dL (3.5-5.2) L 12/25/23 08:55 Globulin 3.2 g/dL (1.3-4.6) 12/25/23 08:55 All radiology interpretation(s) finalized by discharge Discharge Plan Discharge Patient Disposition: Home Clinical Impression: Syncope, ESRD on dialysis Condition: Stable Prescriptions: No Action nitroglycerin [Nitrostat] 0.4 mg tablet, sublingual 0.4 mg SUBLINGUAL Q5M PRN (Reason: Chest Pain) Qty: 30 3RF Rx Instructions: MAX 3 DOSES PER EPISODE levothyroxine [Euthyrox] 150 mcg tablet 150 mcg PO DAILY@06 calcium carbonate [Calcium 600] 600 mg calcium (1,500 mg) tablet 600 mg PO DAILY@07 melatonin 1 mg tablet 1 mg PO BEDTIME hydrocodone-acetaminophen 5-325 mg tablet 1 tab PO TID PRN (Reason: Pain) cholecalciferol (vitamin D3) [Vitamin D3] 25 mcg (1,000 unit) Tablet 1,000 unit PO DAILY@07 pantoprazole 40 mg tablet,delayed release (DR/EC) 40 mg PO BID glucose 4 gram tablet,chewable 4 g PO PRN PRN (Reason: Hypoglycemia) Trelegy Ellipta 200-62.5-25 mcg blister with device 1 inh INHALATION DAILY Qty: 28 0RF duloxetine 60 mg capsule,delayed release(DR/EC) 60 mg PO DAILY@07 insulin lispro [Humalog U-100 Insulin] 100 unit/mL Solution See Rx Instructions .ROUTE .COMPLEX MDD 40 Qty: 10 0RF Rx Instructions: per sliding scale with meals 150-200=2 units 201-250=4 units 251-300=6 units 301-350=8 units 351-400=10 units 401-450=12 units metolazone 2.5 mg Tablet See Rx Instructions .ROUTE .COMPLEX Rx Instructions: 2.5 mg orally twice weekly ON SUNDAY AND SUNDAY acetaminophen 325 mg Tablet 650 mg PO Q6H PRN (Reason: Pain) amiodarone 200 mg tablet 200 mg PO DAILY@07 meclizine 25 mg tablet 25 mg PO TID PRN (Reason: Nausea And Vomiting) bisacodyl [Dulcolax (bisacodyl)] 10 mg Suppository 10 mg [place] DAILY PRN (Reason: if no bm x3 days ) nystatin [Nyamyc] 100,000 unit/gram powder See Rx Instructions .ROUTE .COMPLEX Rx Instructions: as directed every shift as needed (apply between thighs and affected areas twice a day as needed) methotrexate sodium 2.5 mg Tablet 6 mg PO Q7D Rx Instructions: on sat pyridoxine (vitamin B6) [Vitamin B-6] 250 mg Tablet 500 mg PO DAILY@08 magnesium L-lactate 84 mg tablet extended release 84 mg PO DAILY@08 aspirin 81 mg Tablet,Delayed Release (Dr/Ec) 81 mg PO DAILY Qty: 30 0RF midodrine 5 mg Tablet 5 mg PO TID PRN (Reason: SBP less than 110 mmhg) Qty: 15 0RF vancomycin 50 mg/mL recon soln 125 mg PO Q6H 10 Days Qty: 100 0RF bumetanide 2 mg tablet See Rx Instructions .ROUTE .COMPLEX Rx Instructions: TAKE 2 MG BY MOUTH TWICE DAILY ON SUNDAY, SUNDAY, SUNDAY, AND SUNDAY. metoprolol tartrate 50 mg tablet 50 mg PO BID insulin glargine [Lantus Solostar U-100 Insulin] 100 unit/mL (3 mL) insulin pen 12 unit SUBCUT BEDTIME Discharge Orders: Discharge ED (Routine); Ordered 12/25/23 Ordered By: Kenrick Treviño Referrals: Davion Griggs MD [Primary Care Provider] - Patient Instructions: Opioid Safety, Pain Management Coding Level of Care Code ED [employer] Operator for Dougie Samson
[2023-12-25] MEDS: sodium chloride 0.9% 500 ML 999 ML IV (11:58)
[2023-12-25 12:02] VITALS: BP 93/59; PULSE 94; RESP 18; O2SAT 98
== END 2023-12-25 13:03 | disposition home or self-care (01) ==
PROVIDERS: Emergency Provider Family Medicine; PCP Family Medicine
DX: R55 Syncope and collapse (principal); I25.10 Atherosclerotic heart disease of native coronary artery without angina pectoris; I13.2 Hypertensive heart and chronic kidney disease with heart failure and with stage 5 chronic kidney disease, or end stage renal disease; E11.22 Type 2 diabetes mellitus with diabetic chronic kidney disease; N18.6 End stage renal disease; I50.9 Heart failure, unspecified; Z99.2 Dependence on renal dialysis; Z99.81 Dependence on supplemental oxygen; E78.5 Hyperlipidemia, unspecified; Z87.891 Personal history of nicotine dependence
CPT/HCPCS: 36415; 74176; 80053; 85025; 93005; 96360; 96361; 99285; J7030; J7040

== ENCOUNTER → 2024-01-07 09:13 | Outpatient (BNVA) | payer MEDICARE, MEDICAID, SELFPAY | PROVIDERS: PCP Family Medicine; Visit Provider Nurse Practitioner Family | DX: I48.20 Chronic atrial fibrillation, unspecified (principal); I11.0 Hypertensive heart disease with heart failure; I50.32 Chronic diastolic (congestive) heart failure; Z87.891 Personal history of nicotine dependence | CPT/HCPCS: 99214 ==

== ENCOUNTER 2024-01-09 09:45 | Inpatient (IN) | payer MEDICARE, MEDICAID, SELFPAY ==
[2024-01-09] VITALS (103 sets, daily range): BP systolic 80–173; BP diastolic 43–136; PULSE 75–110; RESP 15–36; TEMP 36.2–37.5; O2SAT 79–100; BMI 33.3
--- NOTE | 2024-01-09 09:51 | ECG_ITS ---
[facility] Test Date: 2024-01-09 Pat Name: Myesha Parker Department: Room: Gender: Female Director Financial Planning: : 1950 Requested By: Kenrick Al Order Number: [id number] Wilbur MD: Victoriano White M.D. Measurements Intervals [place] Rate: 88 P: 0 DE: 0 QRS: -89 QRSD: 185 T: 75 QT: 434 QTc: 527 Interpretive Statements ATRIAL FIBRILLATION RIGHT BUNDLE BRANCH BLOCK [120+ ms QRS DURATION, UPRIGHT V1, 40+ ms S IN I/aVL/V4/V5/V6] LEFT ANTERIOR FASCICULAR BLOCK [QRS AXIS <= -45, QR IN I, RS IN II] PROBABLE SEPTAL MYOCARDIAL INFARCTION , OF INDETERMINATE AGE [35 ms Q WAVE IN V1/V2] Compared to ECG 12/25/2023 08:44:03 No significant changes Electronically Signed On 01-09-2024 16:24:39 CDT by Victoriano White M.D. [id number] paul
--- NOTE | 2024-01-09 09:52 | XRR_ITS ---
PROCEDURE INFORMATION: Exam: XR Chest Exam date and time: 01/09/2024 10:20 AM Age: 73 years old Clinical indication: Cough and dyspnea and shortness of breath; Prior surgery; Surgery date: 6+ months; Surgery type: Gb; Additional info: Dyspnea/cough TECHNIQUE: Imaging protocol: Radiologic exam of the chest. Views: 1 view. COMPARISON: CR (CHEST, ) 12/15/2023 7:52 AM FINDINGS: Tubes, catheters and devices: Right chest wall central venous catheter tip overlies the right atrium. Lungs: Ongoing retrocardiac consolidation/collapse. Pulmonary vascular congestion. Pleural spaces: Stable moderate right and trace left pleural effusion. Heart/Mediastinum: Stable cardiomediastinal silhouette. Bones/joints: Unremarkable. XR/XR chest 1V portable [id number] IMPRESSION: No interval change.
--- NOTE | 2024-01-09 09:53 | ED_ITS ---
HPI - SOB/Dyspnea 2 General: Chief Complaint: Shortness of Breath/Dyspnea Stated Complaint: Resp Distress Time Seen by Provider: 01/09/24 09:51 Source: patient and EMS Mode of arrival: ambulatory History of Present Illness: HPI Narrative: 73-year-old female with history of end-s tage renal disease, Heart failure coronary artery disease atrial fibrillation and COPD. Patient presents to the emergency room from [place] [facility] via EMS with complaints of shortness of breath and difficulty breathing respiratory distress reporting sats 80%'s. Arrives here on CPAP. Is complaining of some chest discomfort patient has chronic chest pain. No vomiting reported no diarrhea no reported productive cough. MD elicited complaint: shortness of breath Pertinent past history: COPD, congestive heart failure and other (End-stage renal disease) Onset (ago): hour(s) Severity: mild Exacerbating factors: exertion and coughing Relieving factors: oxygen and upright position Associated symptoms: Deny abdominal pain, chest congestion, chest pain, cough, dizziness, extremity pain, fever(s), nausea, orthopnea, palpitations, paresthesias or vomiting Treatment prior to arrival: oxygen and other (BiPAP) Review of Systems 2 Const: Denies: fever(s) or chills Card: Denies: chest pain, palpitations or orthopnea Resp: Reports: dyspnea and wheezing; Denies: chest congestion GI: Denies: abdominal pain, nausea or vomiting : Denies: dysuria, urinary frequency or urinary urgency Musc: Denies: neck pain, back pain or extremity pain Skin/Breast: Denies: rash Neuro: Denies: dizziness PFSH ED 2 PFSH: Medical History UTI (urinary tract infection) Major depressive disorder, recurrent episode, moderate with anxious distress Duodenal ulcer due to bacteria Psychiatric care Coronary artery disease Immunization counseling High risk medication use Chronic knee pain Chronic low back pain COVID-14 August 2020 Seronegative rheumatoid arthritis of both hands Intermittent atrial fibrillation Poorly controlled diabetes mellitus CHF exacerbation Narrow complex tachycardia Inflammatory arthritis Osteoarthritis of knees, bilateral Fibromyalgia Lung nodule Unstable angina Low back pain of over 3 months duration Urgency incontinence Left renal mass COPD (chronic obstructive pulmonary disease) Oxygen dependent, 2 L at baseline Anxiety and depression Hypothyroidism Liver cirrhosis Hyperlipidemia Hypertension Recurrent UTI Surgical History History of cholecystectomy History of thyroid surgery History of cardiac cath History of hysterectomy History of knee replacement Family History Other CAD (coronary artery disease) Cancer Denies family history of Anesthesia complication Bleeding disorder Social History Smoking and tobacco/nicotine status: former use of tobacco/nicotine Quit status (tobacco/nicotine): has quit using Year quit tobacco: 2005 Second hand smoke exposure: No Alcohol intake: never Substance/Drug Use: never Adopted: No Caregiver/support person: No Lives independently: No Household members: spouse Marital status: Current occupational status: retired Current gender identity: Female Physical Exam 2 Const: ORIENTATION/CONSCIOUSNESS: Yes awake HENMT: COMMON NORMALS: normocephalic, atraumatic and hearing grossly normal bilaterally HEAD & SCALP: normocephalic and atraumatic Resp: EFFORT & INSPECTION: Yes tachypneic and Yes respiratory distress A USCULTATION: rhonchi and wheezes Cardio: COMMON NORMALS: regular rate, regular rhythm and No murmurs present (Cardio) RATE: regular rate RHYTHM: regular rhythm GI: COMMON NORMALS: Soft to palpation and No hepatosplenomegaly present A USCULTATION: Yes normoactive bowel sounds PALPATION: Yes Soft to palpation, No Tenderness to palpation present (GI), No Guarding due to palpation present (GI) and Yes No hepatosplenomegaly present Extremity: COMMON NORMALS: normal to inspection, capillary refill normal, no clubbing, cyanosis or edema, no calf tenderness and no pedal edema Skin: COMMON NORMALS: no rashes or lesions noted GENERAL SKIN EXAM: no rashes or lesions noted Course 2 Vital Signs: Vital signs: Vital Signs Temperature 98.8 F 01/09/24 09:46 Pulse Rate 93 01/09/24 12:42 Respiratory Rate 31 H 01/09/24 11:11 Blood Pressure 113/67 01/09/24 12:42 Pulse Oximetry 94 01/09/24 12:42 Oxygen Delivery Me thod BiPAP 01/09/24 12:40 Fraction of Inspir ed Oxygen 50 01/09/24 10:08 MDM - SOB/Dyspnea Medical Decision Making Patient has acute hypercapnic respiratory failure with congestive heart failure and cystitis mild sepsis. She is also anemic. Will transfuse blood she has been given Lasix. Blood pressure did lower slightly with this. We did not require any pressors. She is continued on BiPAP has improved slightly. Reviewed findings with the will admit to ICU as patient is full code at this time discussed with hospitalist and orders written Medical Records I reviewed the patient's medical records. Lab Data I reviewed the patient's lab results. 01/09/24 09:55 01/09/24 09:55 Labs/Radiology: Radiology Impressions Chest X-Ray 01/09/24 09:52 IMPRESSION: No interval change. Laboratory Results WBC 9.60 10^3/uL (3.29-11.43) 01/09/24 09:55 RBC 2.50 10^6/uL (3.85-5.65) L 01/09/24 09:55 Hgb 7.90 g/dL (11.27-16.99) L 01/09/24 09:55 Hct 26.5 % (36-47) L 01/09/24 09:55 MCV 106.0 fl (85-98) H 01/09/24 09:55 MCH 31.6 pg (27-33) 01/09/24 09:55 MCHC 29.8 g/dL (30-55) L 01/09/24 09:55 RDW 21.5 % (12.1-15.1) H 01/09/24 09:55 Plt Count 439 10^3/cmm (157-399) H 01/09/24 09:55 MPV 9.6 fL (7.4-10.4) 01/09/24 09:55 Lymph % (Auto) Not Reportable 01/09/24 09:55 [place] % (Auto) Not Reportable 01/09/24 09:55 Lymph # (Auto) Not Reportable 01/09/24 09:55 [place] # (Auto) Not Reportable 01/09/24 09:55 Total Counted 100 (0-100) 01/09/24 09:55 Atypical Lymphs % 1.0 % (0-5) 01/09/24 09:55 Absolute Neutrophils 6.9 10^3/cmm (1.4-6.5) H 01/09/24 09:55 Segmented Neutrophils 65 % 01/09/24 09:55 Abs Segm Neuts (Man) 6.2 10/cmm (1.6-7.1) 01/09/24 09:55 Band Neutrophils 7.0 % 01/09/24 09:55 Abs Band Neuts (Man) 0.7 10^3/cmm (0.0-1.2) 01/09/24 09:55 Absolute Lymphocytes 1.3 10^3/cmm (1.2-3.4) 01/09/24 09:55 Lymphocytes (Manual) 13 % 01/09/24 09:55 Monocytes (Manual) 4.0 % 01/09/24 09:55 Absolute Monocytes 0.4 10^3/cmm (0.1-0.6) 01/09/24 09:55 Eosinophils (Manual) 3 % 01/09/24 09:55 Absolute Eosinophils 0.3 10^3/cmm (0.0-0.7) 01/09/24 09:55 Basophils (Manual) 0.0 % 01/09/24 09:55 Absolute Basophils 0.0 10^3/cmm (0.0-0.2) 01/09/24 09:55 Metamyelocytes 2.0 % 01/09/24 09:55 Myelocytes 3.0 % 01/09/24 09:55 Promyelocytes 2.0 % 01/09/24 09:55 Platelet Estimate Increased (Normal) H 01/09/24 09:55 Giant Platelets Trace 01/09/24 09:55 Polychromasia Trace 01/09/24 09:55 Anisocytosis 2+ H 01/09/24 09:55 Macrocytosis 2+ H 01/09/24 09:55 Specimen Type Arterial 01/09/24 12:28 Sample Site Radial, left 01/09/24 12:28 ABG pH 7.35 (7.35-7.45) 01/09/24 12:28 ABG pCO2 55.4 mmHg (35-45) H 01/09/24 12:28 ABG pO2 60.4 mmHg (80.0-100.0) L 01/09/24 12:28 ABG PO2/FiO2 Ratio 0 01/09/24 12:28 ABG HCO3 30.6 mmol/L (22-26) H 01/09/24 12:28 ABG O2 Saturation 89.9 01/09/24 12:28 ABG Base Excess 4.3 mmol/L (-2.0-2.0) H 01/09/24 12:28 Memo Test Pos 01/09/24 12:28 A-a O2 Gradient 24.9 mmHg (5-10) H 01/09/24 12:28 Hematocrit 22.7 % (37-47) L 01/09/24 12:28 Hgb O2 Saturation 86.9 % (95-100) L 01/09/24 12:28 Carboxyhemoglobin 1.7 %THgb (0.4-20.1) 01/09/24 12:28 Methemoglobin 1.7 % (0.4-1.5) H 01/09/24 12:28 Total Hemoglobin 7.4 g/dL (12-16) L 01/09/24 12:28 Sodium 138.0 mmol/L (131-143) 01/09/24 12:28 Potassium 3.8 mmol/L (3.5-5.0) 01/09/24 12:28 Glucose 148.0 mg/dL (70-115) H 01/09/24 12:28 Ionized Calcium 1.2 mmol/L (1.1-1.4) 01/09/24 12:28 O2 Delivery Device Bipap 01/09/24 12:28 FiO2 45.0 % 01/09/24 12:28 Glove Pairer ID [place] 01/09/24 12:28 Sodium 137 mmol/L (136-145) 01/09/24 09:55 Potassium 4.3 mmol/L (3.5-5.1) 01/09/24 09:55 Chloride 98 mmol/L (98-107) 01/09/24 09:55 Carbon Dioxide 28 mmol/L (22-29) 01/09/24 09:55 Anion Gap 15.3 (5-19) 01/09/24 09:55 BUN 19 mg/dL (8-23) 01/09/24 09:55 Creatinine 1.8 mg/dL (0.5-0.9) H 01/09/24 09:55 GFR Calculation Not Reportable 01/09/24 09:55 Glucose 182 mg/dL (65-115) H 01/09/24 09:55 Calculated Osmolality 291 mOsm/kg (285-295) 01/09/24 09:55 Lactic Acid 2.9 mmol/L (0.5-2.2) H 01/09/24 09:55 Calcium 9.1 mg/dL (8.5-10.5) 01/09/24 09:55 Total Bilirubin 0.3 mg/dL (0.15-1.2) 01/09/24 09:55 AST 28 U/L (0-32) 01/09/24 09:55 ALT 32 U/L (0-33) 01/09/24 09:55 Alkaline Phosphatase 244 U/L (35-105) H 01/09/24 09:55 Creatine Kinase 36 U/L (26-192) 01/09/24 09:55 Troponin T Baseline 53 ng/L (0-10) H 01/09/24 09:55 Troponin T 120 Minute 48.73 ng/L (0-10) H 01/09/24 11:32 Delta Troponin T -4.27 ABS# (0-10) L 01/09/24 11:32 NT-Pro-B Natriuret Pep 48671 pg/mL (0-450) H 01/09/24 09:55 Total Protein 6.9 g/dL (6.6-8.7) 01/09/24 09:55 Albumin 3.2 g/dL (3.5-5.2) L 01/09/24 09:55 Globulin 3.7 g/dL (1.3-4.6) 01/09/24 09:55 Urine Color Yellow (Yellow) 01/09/24 11:15 Urine Appearance Cloudy (CLEAR) A 01/09/24 11:15 Urine pH 5 (5-7) 01/09/24 11:15 Ur Specific [place] 1.020 (1.005-1.030) 01/09/24 11:15 Urine Protein 3+ (Negative) H 01/09/24 11:15 Urine Glucose (UA) Norm (Normal) 01/09/24 11:15 Urine Ketones 1+ (Negative) H 01/09/24 11:15 Urine Blood 2+ (Negative) H 01/09/24 11:15 Urine Nitrate Positive (Negative) H 01/09/24 11:15 Urine Bilirubin 2+ (Negative) H 01/09/24 11:15 Urine Urobilinogen Norm mg/dL (Negative) 01/09/24 11:15 Ur Leukocyte Esterase 2+ (Negative) H 01/09/24 11:15 Urine RBC 5-10 /hpf (0-2) H 01/09/24 11:15 Urine WBC >100 /hpf (0-5) H 01/09/24 11:15 Ur Squamous Epith Cells 10-15 /hpf (0-5) H 01/09/24 11:15 Ur Transition Epith Cell 0-4 /hpf 01/09/24 11:15 Amorphous Sediment Not Reportable 01/09/24 11:15 Urine Bacteria 2+ /hpf (NONE) H 01/09/24 11:15 Urine Mucus 1+ /hpf 01/09/24 11:15 Blood Type O Positive 01/09/24 11:32 Rho(D) Type Rh positive 01/09/24 11:32 Antibody Screen Negative 01/09/24 11:32 Crossmatch See Detail 01/09/24 11:32 All radiology interpretation(s) finalized by discharge Discharge Plan Discharge Patient Disposition: Admitted As Inpatient Admit Provider: Adriane Terry Clinical Impression: Acute exacerbation of CHF (congestive heart failure), Acute and chronic respiratory failure with hypercapnia, End stage renal disease on dialysis, Chronic atrial fibrillation Condition: Stable Coding Level of Care Code ED Court Magistrate for Dougie Samson
[2024-01-09 10:03] LABS: ABG PCO2 58.4 mmHg (35-45); Arterial Blood Gas Hematocrit 25.4 % (37-47); Base Excess ABG 1.6 mmol/L (-2.0-2.0); Blood Gas Allen Test Pos; Blood Gas Operator Identificat WALCI; Blood Gas Sample Site Radial, left; Blood Gas Sample Type Arterial; Carboxyhemoglobin 1.5 %THgb (0.4-20.1); HCO3 ABG 28.6 mmol/L (22-26); HGB O2 Sat 88.2 % (95-100); Ionized Calcium Level - ABG 1.3 mmol/L (1.1-1.4); Methemoglobin 1.7 % (0.4-1.5); Oxygen Device BIPAP; Oxygen Saturation ABG 91.1; PO2 ABG 68.4 mmHg (80.0-100.0); PO2 FiO2 Ratio Arterial Blood 0; Total Hemoglobin 8.3 g/dL (12-16)
[2024-01-09 10:06] LABS: Hematocrit 26.5 % (36-47); Mean Corpuscular HGB Conc 29.8 g/dL (30-55); Mean Corpuscular Hemoglobin 31.6 pg (27-33); Mean Platelet Volume 9.6 fL (7.4-10.4); Platelet Count 439 10^3/cmm (157-399); Red Cell Distribution Width 21.5 % (12.1-15.1)
[2024-01-09 10:24] LABS: Lactic Sepsis W/Reflex 2.9 mmol/L (0.5-2.2)
[2024-01-09 10:26] LABS: Troponin(5th) Baseline 53 ng/L (0-10)
[2024-01-09 10:34] LABS: Alanine Aminotransferase 32 U/L (0-33); Albumin Level 3.2 g/dL (3.5-5.2); Alkaline Phosphatase 244 U/L (35-105); Anion Gap 15.3 (5-19); Aspartate Amino Transferase 28 U/L (0-32); Blood Urea Nitrogen 19 mg/dL (8-23); Calcium 9.1 mg/dL (8.5-10.5); Carbon Dioxide 28 mmol/L (22-29); Chloride 98 mmol/L (98-107); Creatine Phosphokinase 36 U/L (26-192); Creatinine Clr Calc Pharmacy 30.0495; Globulin 3.7 g/dL (1.3-4.6); Glucose 182 mg/dL (65-115); NT Pro B Type Natriuretic Pept 25615 pg/mL (0-450); Osmolality Calculated 291 mOsm/kg (285-295); Potassium 4.3 mmol/L (3.5-5.1); Sodium 137 mmol/L (136-145); Total Bilirubin 0.3 mg/dL (0.15-1.2); Total Protein 6.9 g/dL (6.6-8.7)
[2024-01-09 10:39] LABS: Absolute Eosinophils 0.3 10^3/cmm (0.0-0.7); Absolute Segmented Neutrophil 6.2 10/cmm (1.6-7.1); Band Neutrophils Absolute 0.7 10^3/cmm (0.0-1.2); Eosinophils 3 %; Lymphocytes 13 %; Monocytes Absolute 0.4 10^3/cmm (0.1-0.6); Segmented Neutrophils 65 %; Slide Review Slide Review Perform; Total Cells Counted 100 (0-100)
[2024-01-09 10:40] LABS: Absolute Neutrophil 6.9 10^3/cmm (1.4-6.5); Anisocytosis 2+; Giant Platelets Trace; Lymphocytes Absolute 1.3 10^3/cmm (1.2-3.4); Macrocytosis 2+; Platelet Estimate Increased (Normal); Polychromasia Trace
[2024-01-09] MEDS: FUROsemide 10 mg/mL SDV 10mL 60 MG IVP (11:08)
[2024-01-09] MEDS: piperacillin-tazobactam 3.375 GM in sodium chloride 0.9% (plus) 50 ML IV ×2 (11:38→19:12)
[2024-01-09 11:45] LABS: Urine Appearance Cloudy (CLEAR); Urine Color Yellow (Yellow); pH Urine 5 (5-7)
[2024-01-09 11:46] LABS: Add Urine Microscopic? YES; Bilirubin Urine 2+ (Negative); Blood Urine 2+ (Negative); Glucose Urine UA Norm (Normal); Ketones Urine 1+ (Negative); Leukocyte Esterase Urine 2+ (Negative); Nitrate Urine Positive (Negative); Protein Urine 3+ (Negative); Urobilinogen Urine Norm (Negative)
[2024-01-09 11:48] LABS: Add Urine Culture? Yes; Bacteria Urine 2+ /hpf; Mucus Urine 1+ /hpf; Transitional Epi Cells Urine 0-4 /hpf; WBC Urine >100 /hpf (0-5)
[2024-01-09 11:49] LABS: Reflex Lactate Order REFLEX LACTIC ORDERD
--- NOTE | 2024-01-09 11:52 | ECG_ITS ---
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 Measurements Intervals [place] Rate: 91 P: 0 [place]: 0 QRS: -86 QRSD: 178 T: 66 QT: 441 QTc: 544 Interpretive Statements ATRIAL FIBRILLATION RIGHT BUNDLE BRANCH BLOCK [120+ ms QRS DURATION, UPRIGHT V1, 40+ ms S IN I/aVL/V4/V5/V6] LEFT ANTERIOR FASCICULAR BLOCK [QRS AXIS <= -45, QR IN I, RS IN II] POSSIBLE ANTERIOR MYOCARDIAL INFARCTION , OF INDETERMINATE AGE [30 ms Q WAVE IN V3/V4, OR R < 0.2 mV IN V4] Compared to ECG 01/09/2024 09:51:06 No significant changes Electronically Signed On 01-09-2024 16:27:15 CDT by Victoriano White M.D. [email or web address].[email or web address]/store/[id number]
--- NOTE | 2024-01-09 11:52 | PC.NURSE ---
Urinary Output: pt urine output post romero insertion approx 5mL, Dr. Treviño notified. bladder scan showed 16mL urine. pt is dialysis patient.
[2024-01-09] MEDS: vancomycin 1,000 MG in sodium chloride 0.9% 250 ML 250 MG IV (12:33)
[2024-01-09 12:40] LABS: ABG PCO2 55.4 mmHg (35-45); ABG PH Result 7.35 (7.35-7.45); Alveolar-Arterial Oxygen Gradi 24.9 mmHg (5-10); Arterial Blood Gas Hematocrit 22.7 % (37-47); Base Excess ABG 4.3 mmol/L (-2.0-2.0); Blood Gas Allen Test Pos; Blood Gas Operator Identificat WALCI; Blood Gas Sample Site Radial, left; Blood Gas Sample Type Arterial; Carboxyhemoglobin 1.7 %THgb (0.4-20.1); HCO3 ABG 30.6 mmol/L (22-26); HGB O2 Sat 86.9 % (95-100); Ionized Calcium Level - ABG 1.2 mmol/L (1.1-1.4); Methemoglobin 1.7 % (0.4-1.5); Oxygen Device BIPAP; Oxygen Saturation ABG 89.9; PO2 ABG 60.4 mmHg (80.0-100.0); PO2 FiO2 Ratio Arterial Blood 0; Potassium Level - ABG 3.8 mmol/L (3.5-5.0); Total Hemoglobin 7.4 g/dL (12-16)
[2024-01-09 12:55] LABS: Troponin 5 2HR 48.73 ng/L (0-10); Troponin 5 2HR Delta -4.27 ABS# (0-10)
--- NOTE | 2024-01-09 13:41 | P.HP_ITS ---
Providers/Chief Complaint 2 Admitting Physician: Adriane Terry MD Primary Care Provider: Davion Griggs MD Chief Complaint: Resp Distress History of Present Illness Myesha Parker is a 73 year old female with history of congestive heart failure, renal failure, CAD, HTN, COPD, HLD, MDD, sacral decubitus ulcer, hypotension, poor peripheral access, other medical problems discharged from the hospital on 10/20 after recent hospitalization for treatment of fluid overload, atrial fibrillation with RVR, NSTEMI, intubation and successfully extubated during her stay. Patient was restarted on her dialysis through hospitalization. She was recently discharged from the hospital after being diagnosed with C. difficile. Date of discharge was December 19. Patient again presents to the hospital today for complaint of shortness of breath. Her is at bedside who states that she was fine up until yesterday however this morning she experienced shortness of breath and therefore sent to the hospital. Patient stated in the room ICU 12. Resting comfortably in bed. Currently on BiPAP. States she has been having some chest pain in the middle of her chest. The chest pain is completely reproducible to palpation. She said it also hurts when she breathes. Upon palpating the area she says the pain returns. Denies any other complaints at this time. Does states she is weak. Did not miss any dialysis sessions lately.At the alf her saturations were in the 80%. Denies nausea vomiting diarrhea, abdominal pain. Medications/Allergies Home Medications Medication Instructions Recorded Confirmed Last Taken Type cholecalciferol (vitamin D3) 25 1,000 unit PO DAILY@10/12/19 01/09/24 01/08/24 History mcg (1,000 unit) tablet (Vitamin D3) nitroglycerin 0.4 mg sublingual 0.4 mg sublingual Q5M PRN Chest 02/08/21 01/09/24 Unknown Rx tablet (Nitrostat) Pain #30 tabs calcium carbonate (Calcium 600) 600 mg PO DAILY@06/27/21 01/09/24 01/08/24 History levothyroxine 150 mcg tablet 150 mcg PO DAILY@06/27/21 01/09/24 01/09/24 History (Euthyrox) pantoprazole 40 mg tablet,delayed 40 mg PO BID 09/13/21 01/09/24 01/08/24 History release glucose 4 gram chewable tablet 4 g PO PRN PRN Hypoglycemia 06/17/23 01/09/24 Unknown History fluticasone fur. 200 mcg-umeclid 1 inh inhalation DAILY #28 ea 06/20/23 01/09/24 01/08/24 Rx 62.5 mcg-vilant 25 mcg inhalat.powder (Trelegy Ellipta) duloxetine 60 mg capsule,delayed 60 mg PO DAILY@07/25/23 01/09/24 01/08/24 History release insulin lispro 100 unit/mL See Rx Instructions .Route 08/17/23 01/09/24 01/08/24 Rx subcutaneous solution (Humalog .COMPLEX #10 mL U-100 Insulin) hydrocodone 5 mg-acetaminophen 325 1 tab PO TID PRN Pain 09/24/23 01/09/24 01/09/24 History mg tablet acetaminophen 325 mg tablet 650 mg PO Q6H PRN PAIN OR 09/30/23 01/09/24 01/04/24 History INCREASED TEMP amiodarone 200 mg tablet 200 mg PO DAILY@09/30/23 01/09/24 01/08/24 History bisacodyl 10 mg rectal suppository 10 mg ME DAILY PRN if no bm x3 days 09/30/23 01/09/24 11/22/23 History (Dulcolax (bisacodyl)) meclizine 25 mg tablet 25 mg PO TID PRN Nausea And 09/30/23 01/09/24 01/03/24 History Vomiting metolazone 2.5 mg tablet See Rx Instructions .Route .COMPLEX 09/30/23 01/09/24 01/05/24 History nystatin 100,000 unit/gram topical See Rx Instructions .Route .COMPLEX 09/30/23 01/09/24 Unknown History powder ([facility]) magnesium L-lactate 84 mg 84 mg PO DAILY@10/12/23 01/09/24 01/08/24 History tablet,extended release methotrexate sodium 2.5 mg tablet 6 mg PO Q7D 10/12/23 01/09/24 01/05/24 History pyridoxine (vitamin B6) 250 mg 500 mg PO DAILY@08 10/12/23 01/09/24 01/08/24 History tablet (Vitamin B-6) aspirin 81 mg tablet,delayed 81 mg PO DAILY #30 tabs 10/19/23 01/09/24 01/08/24 Rx release melatonin 1 mg tablet 1 mg PO BEDTIME 12/05/23 01/09/24 01/08/24 History bumetanide 2 mg tablet See Rx Instructions .Route .COMPLEX 12/15/23 01/09/24 01/07/24 History insulin glargine 100 unit/mL (3 12 unit SUBCUT BEDTIME 12/15/23 01/09/24 01/08/24 History mL) subcutaneous pen (Lantus Solostar U-100 Insulin) metoprolol tartrate 50 mg tablet 50 mg PO BID 12/15/23 01/09/24 01/08/24 History midodrine 10 mg tablet 10 mg PO TID PRN SBP less than 115 01/07/24 01/09/24 Unknown Rx mmhg #90 tabs folic acid 1 mg tablet 1 mg PO DAILY 01/09/24 01/09/24 01/08/24 History honey 80 % topical gel (MediHoney See Rx Instructions .Route .COMPLEX 01/09/24 01/09/24 01/08/24 History (honey)) lidocaine 5 % topical patch 1 patch topical BID 01/09/24 01/09/24 01/08/24 History melatonin 1 mg tablet 1 mg PO BEDTIME 01/09/24 01/09/24 01/08/24 History Allergies Allergy/AdvReac Type Severity Reaction Status Date / Time adhesive tape Allergy rash Verified 01/07/24 09:18 cinnamon Allergy sinus Verified 01/07/24 09:18 codeine Allergy unknown Verified 01/07/24 09:18 cedar Allergy sinus Uncoded 01/07/24 09:18 pine Allergy sinus Uncoded 01/07/24 09:18 pork food Allergy ADR-Nausea Uncoded 01/07/24 09:18 PFSH Acute 2 PFSH: Medical History UTI (urinary tract infection) Major depressive disorder, recurrent episode, moderate with anxious distress Duodenal ulcer due to bacteria Psychiatric care Coronary artery disease Immunization counseling High risk medication use Chronic knee pain Chronic low back pain COVID-14 August 2020 Seronegative rheumatoid arthritis of both hands Intermittent atrial fibrillation Poorly controlled diabetes mellitus CHF exacerbation Narrow complex tachycardia Inflammatory arthritis Osteoarthritis of knees, bilateral Fibromyalgia Lung nodule Unstable angina Low back pain of over 3 months duration Urgency incontinence Left renal mass COPD (chronic obstructive pulmonary disease) Oxygen dependent, 2 L at baseline Anxiety and depression Hypothyroidism Liver cirrhosis Hyperlipidemia Hypertension Recurrent UTI Surgical History History of cholecystectomy History of thyroid surgery History of cardiac cath History of hysterectomy History of knee replacement Family History Other CAD (coronary artery disease) Cancer Denies family history of Anesthesia complication Bleeding disorder Social History Smoking and tobacco/nicotine status: former use of tobacco/nicotine Quit status (tobacco/nicotine): has quit using Year quit tobacco: 2005 Second hand smoke exposure: No Alcohol intake: never Substance/Drug Use: never Adopted: No Caregiver/support person: No Lives independently: No Household members: spouse Marital status: Current occupational status: retired Current gender identity: Female Vitals/I&O/Wt Last Vital Signs Temp 98.8 F 01/09/24 09:46 Pulse 93 01/09/24 12:42 Resp 31 H 01/09/24 11:11 BP 113/67 01/09/24 12:42 Pulse Ox 94 01/09/24 12:42 O2 Del Method BiPAP 01/09/24 12:40 FiO2 50 01/09/24 10:08 01/08/24 01/09/24 01/09/24 22:59 06:59 14:59 Intake Total 50 / 50 Balance 50 / 50 Weight last 48 hrs Weight 90.718 kg Physical Exam 2 Narrative: General: Cooperative patient in no apparent distress. appears lethargic and weak, currently on BiPAP. HEENT: Normocephalic, Atraumatic. External ears normal. Nasal passages patent without drainage. MMM. Heart: Irregularly irregular rhythm. Resp: LCTA. No respiratory distress, no use of accessory muscles. Abd: Soft, non tender, no rebound or guarding. Non-distended. Extremities:trace edema. Urinary Catheter Management: Manzanares: Cath Placed During This Visit: yes Urinary Catheter Date of Insertion: 01/09/24 Urinary Catheter Time of Insertion: 11:17 Data 01/09/24 09:55 01/09/24 09:55 Micro: Microbiology 01/09/24 10:00 Blood Culture - Preliminary Blood SPECIMEN COLLECTED 01/09/24 10:05 Blood Culture - Preliminary Blood SPECIMEN COLLECTED A&P Assessment and plan (1) Congestive heart failure (CHF): (2) Renal failure: (3) Chronic atrial fibrillation: (4) COPD (chronic obstructive pulmonary disease): Qualifiers: COPD type: unspecified COPD Qualified Code(s): J44.9 - Chronic obstructive pulmonary disease, unspecified (5) Weakness: (6) Physical deconditioning: (7) Generalized weakness: (8) Atrial fibrillation: Plan #Acute on chronic congestive heart failure #End-stage renal disease on dialysis as an outpatient #Acute on Chronic hypoxic resp failure #Hx of multiple admissions #Immunocompromised, on adalimumab, methrotrexate outpatient, #A-fib with RVR #Hx of recent c.diff infection #Acute on Chronic anemia secondary to renal disease #CAD, #HTN, #COPD, breathing treatments. #HLD, #MDD, #Sacral decubitus ulcer, wound care with home dressing - Pt is fluid overloaded. CXR shows pulm vasc congestion ? Continue aspirin, atorvastatin, amiodarone, levothyroxine, magnesium, Metroprolol tartrate, midodrine ? DuoNeb every 6 hours as needed ? Continue methotrexate every 7 days ? Continue duloxetine ? COntinue Bumex today. ? Consult nephrology for dialysis ? Discussed with patient's and patient regarding CODE STATUS and further plan of care. Patient to remain full code. Patient okay with intubation and chest compressions if needed. -Sliding scale insulin for diabetes ? Continue Lantus at this time. ? COntinue mod dose intensity SSI ? Recheck labs in a.m. recheck BMP, CBC, magnesium in AM. - COnsult nephrology for dialysis - UA abnormal - Will tx for UTI - Place on vanc and zosyn empirically for now. - Check Urine Culture - Check Blood culture - Order 1 unit prbc (by ER). - Recheck CBC in AM - Continue on bipap and wean as able Full code DVT prophylaxis: Neil Delgadoations 2 Medical Necessity Statement*: > 2midnight stay for mgmt of anemia, acute on chronic chf, respiratory failure Diagnoses Congestive heart failure (CHF) I50.9 Renal failure N19 Chronic atrial fibrillation I48.20 Chronic obstructive pulmonary disease, unspecified COPD type J44.9 COPD type: unspecified COPD Weakness R53.1 Physical deconditioning R53.81 Generalized weakness R53.1 Atrial fibrillation I48.91
[2024-01-09] MEDS: heparin 5,000 unit/mL INJ 1 mL 5000 UNIT SUBCUT (13:58)
[2024-01-09 15:08] LABS: Lactic Acid level (Lactate) 1.9 mmol/L (0.5-2.2)
--- NOTE | 2024-01-09 17:06 | ECG_ITS ---
[facility] Test Date: 2024-01-09 Pat Name: Myesha Parker Department: Room: ICU12 Gender: Female Cardiovascular Technologist: : 1950 Requested By: Kenrick Al Order Number: [id number] Wilbur MD: Victoriano White M.D. Measurements Intervals [place] Rate: 106 P: 0 MI: 0 QRS: -89 QRSD: 174 T: 79 QT: 417 QTc: 556 Interpretive Statements ATRIAL FIBRILLATION WITH RAPID VENTRICULAR RESPONSE RIGHT BUNDLE BRANCH BLOCK [120+ ms QRS DURATION, UPRIGHT V1, 40+ ms S IN I/aVL/V4/V5/V6] LEFT ANTERIOR FASCICULAR BLOCK [QRS AXIS <= -45, QR IN I, RS IN II] POSSIBLE ANTERIOR MYOCARDIAL INFARCTION , OF INDETERMINATE AGE [30 ms Q WAVE IN V3/V4, OR R < 0.2 mV IN V4] MODERATE T-WAVE ABNORMALITY, CONSIDER LATERAL ISCHEMIA [-0.1+ mV T-WAVE IN I/aVL/V5/V6] Compared to ECG 01/09/2024 12:15:34 T-wave abnormality now present Possible ischemia now present Myocardial infarct finding still present Electronically Signed On 01-09-2024 22:49:36 CDT by Victoriano White M.D. [id number]
--- NOTE | 2024-01-09 17:40 | P.CONIM_ITS ---
Providers/Reason For Consult 2 Consulting Physician/Specialty*: [facility]/Nephrology Reason for Consult*: ESRD Attending Physician: Adriane Terry MD Primary Care Provider: Davion Griggs MD History of Present Illness History of Present Illness Myesha Parker is a 73 year old female Patient is a 73-year-old female with past medical history of end-stage renal disease on dialysis, CHF, coronary artery disease, A-fib, COPD was [facility] from [facility] due to complaints of shortness of breath and respiratory distress. Patient is currently admitted to ICU and currently on BiPAP. Chest x-ray showed vascular congestion. Lab data reviewed, hemoglobin 7.9 creatinine 1.8. Medications/Allergies Home Medications Medication Instructions Recorded Confirmed Last Taken Type cholecalciferol (vitamin D3) 25 1,000 unit PO DAILY@10/12/19 01/09/24 01/08/24 History mcg (1,000 unit) tablet (Vitamin D3) nitroglycerin 0.4 mg sublingual 0.4 mg sublingual Q5M PRN Chest 02/08/21 01/09/24 Unknown Rx tablet (Nitrostat) Pain #30 tabs calcium carbonate (Calcium 600) 600 mg PO DAILY@06/27/21 01/09/24 01/08/24 History levothyroxine 150 mcg tablet 150 mcg PO DAILY@06/27/21 01/09/24 01/09/24 History (Euthyrox) pantoprazole 40 mg tablet,delayed 40 mg PO BID 09/13/21 01/09/24 01/08/24 History release glucose 4 gram chewable tablet 4 g PO PRN PRN Hypoglycemia 06/17/23 01/09/24 Unknown History fluticasone fur. 200 mcg-umeclid 1 inh inhalation DAILY #28 ea 06/20/23 01/09/24 01/08/24 Rx 62.5 mcg-vilant 25 mcg inhalat.powder (Trelegy Ellipta) duloxetine 60 mg capsule,delayed 60 mg PO DAILY@07/25/23 01/09/24 01/08/24 History release insulin lispro 100 unit/mL See Rx Instructions .Route 08/17/23 01/09/24 01/08/24 Rx subcutaneous solution (Humalog .COMPLEX #10 mL U-100 Insulin) hydrocodone 5 mg-acetaminophen 325 1 tab PO TID PRN Pain 09/24/23 01/09/24 01/09/24 History mg tablet acetaminophen 325 mg tablet 650 mg PO Q6H PRN PAIN OR 09/30/23 01/09/24 01/04/24 History INCREASED TEMP amiodarone 200 mg tablet 200 mg PO DAILY@07 09/30/23 01/09/24 01/08/24 History bisacodyl 10 mg rectal suppository 10 mg [place] DAILY PRN if no bm x3 days 09/30/23 01/09/24 11/22/23 History (Dulcolax (bisacodyl)) meclizine 25 mg tablet 25 mg PO TID PRN Nausea And 09/30/23 01/09/24 01/03/24 History Vomiting metolazone 2.5 mg tablet See Rx Instructions .Route .COMPLEX 09/30/23 01/09/24 01/05/24 History nystatin 100,000 unit/gram topical See Rx Instructions .Route .COMPLEX 09/30/23 01/09/24 Unknown History powder ([facility]) magnesium L-lactate 84 mg 84 mg PO DAILY@10/12/23 01/09/24 01/08/24 History tablet,extended release methotrexate sodium 2.5 mg tablet 6 mg PO Q7D 10/12/23 01/09/24 01/05/24 History pyridoxine (vitamin B6) 250 mg 500 mg PO DAILY@10/12/23 01/09/24 01/08/24 History tablet (Vitamin B-6) aspirin 81 mg tablet,delayed 81 mg PO DAILY #30 tabs 10/19/23 01/09/24 01/08/24 Rx release melatonin 1 mg tablet 1 mg PO BEDTIME 12/05/23 01/09/24 01/08/24 History bumetanide 2 mg tablet See Rx Instructions .Route .COMPLEX 12/15/23 01/09/24 01/07/24 History insulin glargine 100 unit/mL (3 12 unit SUBCUT BEDTIME 12/15/23 01/09/24 01/08/24 History mL) subcutaneous pen (Lantus Solostar U-100 Insulin) metoprolol tartrate 50 mg tablet 50 mg PO BID 12/15/23 01/09/24 01/08/24 History midodrine 10 mg tablet 10 mg PO TID PRN SBP less than 115 01/07/24 01/09/24 Unknown Rx mmhg #90 tabs folic acid 1 mg tablet 1 mg PO DAILY 01/09/24 01/09/24 01/08/24 History honey 80 % topical gel (MediHoney See Rx Instructions .Route .COMPLEX 01/09/24 01/09/24 01/08/24 History (honey)) lidocaine 5 % topical patch 1 patch topical BID 01/09/24 01/09/24 01/08/24 History melatonin 1 mg tablet 1 mg PO BEDTIME 01/09/24 01/09/24 01/08/24 History Allergies Allergy/AdvReac Type Severity Reaction Status Date / Time adhesive tape Allergy rash Verified 01/07/24 09:18 cinnamon Allergy sinus Verified 01/07/24 09:18 codeine Allergy unknown Verified 01/07/24 09:18 cedar Allergy sinus Uncoded 01/07/24 09:18 pine Allergy sinus Uncoded 01/07/24 09:18 pork food Allergy ADR-Nausea Uncoded 01/07/24 09:18 Current Medications Generic Name Dose Route Start Last Admin Trade Name Freq PRN Reason Stop Dose Admin Heparin Sodium (Porcine) 5,000 unit 01/09/24 13:45 01/09/24 13:58 Heparin 5,000 Unit/Ml Inj 1 Ml SUBCUT 5,000 unit Q12H JOCE Administration PFSH Acute 2 PFSH: Medical History UTI (urinary tract infection) Major depressive disorder, recurrent episode, moderate with anxious distress Duodenal ulcer due to bacteria Psychiatric care Coronary artery disease Immunization counseling High risk medication use Chronic knee pain Chronic low back pain COVID-14 August 2020 Seronegative rheumatoid arthritis of both hands Intermittent atrial fibrillation Poorly controlled diabetes mellitus CHF exacerbation Narrow complex tachycardia Inflammatory arthritis Osteoarthritis of knees, bilateral Fibromyalgia Lung nodule Unstable angina Low back pain of over 3 months duration Urgency incontinence Left renal mass COPD (chronic obstructive pulmonary disease) Oxygen dependent, 2 L at baseline Anxiety and depression Hypothyroidism Liver cirrhosis Hyperlipidemia Hypertension Recurrent UTI Surgical History History of cholecystectomy History of thyroid surgery History of cardiac cath History of hysterectomy History of knee replacement Family History Other CAD (coronary artery disease) Cancer Denies family history of Anesthesia complication Bleeding disorder Social History Smoking and tobacco/nicotine status: former use of tobacco/nicotine Quit status (tobacco/nicotine): has quit using Year quit tobacco: 2005 Second hand smoke exposure: No Alcohol intake: never Substance/Drug Use: never Adopted: No Caregiver/support person: No Lives independently: No Household members: spouse Marital status: Current occupational status: retired Current gender identity: Female Vitals/I&O/Wt Last Vital Signs Temp 97.6 F 01/09/24 14:31 Pulse 87 01/09/24 16:10 Resp 33 H 01/09/24 16:10 BP 157/88 01/09/24 16:10 Pulse Ox 90 01/09/24 16:10 O2 Del Method BiPAP 01/09/24 14:52 O2 Flow Rate 40 01/09/24 14:52 FiO2 50 01/09/24 14:42 01/09/24 01/09/24 01/09/24 06:59 14:59 22:59 Intake Total 300 / 300 Balance 300 / 300 Weight last 48 hrs Weight 90.804 kg Weight 90.718 kg Physical Exam 2 Narrative: on BIPAP awake , alert no edema Urinary Catheter Management: Manzanares: Cath Placed During This Visit: yes Urinary Catheter Date of Insertion: 01/09/24 Urinary Catheter Time of Insertion: 11:17 Data 01/09/24 09:55 01/09/24 09:55 Micro: Microbiology 01/09/24 10:00 Blood Culture - Preliminary Blood SPECIMEN COLLECTED 01/09/24 10:05 Blood Culture - Preliminary Blood SPECIMEN COLLECTED A&P Assessment and plan (1) End stage renal disease on dialysis: Plan 1. End-stage renal disease: On TTS schedule as outpatient, will do extra ultrafiltration today due to volume overload and shortness of breath 2 g sodium restriction 1500 mill fluid restriction 2. History of CHF with recurrent volume overload, ultrafiltration as above and HD tomorrow 3. Anemia: He will order CARY with HD 4. History of A-fib 5. Coronary artery disease Patient evaluated using audiovisual cart. Time spent 40 minutes. Consult Attestations 2 Medical Necessity Statement: per nano Coding Level of Care Code Acute Code for Chg Fwd Diagnoses End stage renal disease on dialysis N18.6; Z99.2
[2024-01-09 17:46] LABS: Troponin 5 6HR 53.88 ng/L (0-10); Troponin 5 6HR Delta 0.88 ng/L (0-12)
[2024-01-09] MEDS: heparin, porcine 1,000 unit/mL INJ 10 mL 10000 UNIT INTRACATH (18:21)
[2024-01-09] MEDS: heparin, porcine 1,000 unit/mL INJ 10 mL 1000 UNIT IV (18:22)
[2024-01-09 19:11] LABS: Glucose Point of Care 115 mg/dL (70-110)
[2024-01-09] MEDS: metoprolol tartrate 50 mg Tablet PO (19:12)
--- NOTE | 2024-01-09 19:51 | PM.CONSULT ---
Providers/Reason For Consult Consulting Physician/Specialty*: kommana/nephrology Reason for Consult*: esrd Attending Physician: Adriane Terry MD Primary Care Provider: Davion Griggs MD History of Present Illness History of Present Illness Myesha Parker is a 73 year old female Patient is a 73-year-old female with past medical history of end-stage renal disease on dialysis, CHF, coronary artery disease, A-fib, COPD was sent from long term due to complaints of shortness of breath and respiratory distress. Patient is currently admitted to ICU and currently on BiPAP. Chest x-ray showed vascular congestion. Review of Systems Narrative: negative Medications/Allergies Home Medications Medication Instructions Recorded Confirmed Last Taken Type cholecalciferol (vitamin D3) 25 1,000 unit PO DAILY@10/12/19 01/09/24 01/08/24 History mcg (1,000 unit) tablet (Vitamin D3) nitroglycerin 0.4 mg sublingual 0.4 mg sublingual Q5M PRN Chest 02/08/21 01/09/24 Unknown Rx tablet (Nitrostat) Pain #30 tabs calcium carbonate (Calcium 600) 600 mg PO DAILY@06/27/21 01/09/24 01/08/24 History levothyroxine 150 mcg tablet 150 mcg PO DAILY@06/27/21 01/09/24 01/09/24 History (Euthyrox) pantoprazole 40 mg tablet,delayed 40 mg PO BID 09/13/21 01/09/24 01/08/24 History release glucose 4 gram chewable tablet 4 g PO PRN PRN Hypoglycemia 06/17/23 01/09/24 Unknown History fluticasone fur. 200 mcg-umeclid 1 inh inhalation DAILY #28 ea 06/20/23 01/09/24 01/08/24 Rx 62.5 mcg-vilant 25 mcg inhalat.powder (Trelegy Ellipta) duloxetine 60 mg capsule,delayed 60 mg PO DAILY@07/25/23 01/09/24 01/08/24 History release insulin lispro 100 unit/mL See Rx Instructions .Route 08/17/23 01/09/24 01/08/24 Rx subcutaneous solution (Humalog .COMPLEX #10 mL U-100 Insulin) hydrocodone 5 mg-acetaminophen 325 1 tab PO TID PRN Pain 09/24/23 01/09/24 01/09/24 History mg tablet acetaminophen 325 mg tablet 650 mg PO Q6H PRN PAIN OR 09/30/23 01/09/24 01/04/24 History INCREASED TEMP amiodarone 200 mg tablet 200 mg PO DAILY@07 09/30/23 01/09/24 01/08/24 History bisacodyl 10 mg rectal suppository 10 mg OH DAILY PRN if no bm x3 days 09/30/23 01/09/24 11/22/23 History (Dulcolax (bisacodyl)) meclizine 25 mg tablet 25 mg PO TID PRN Nausea And 09/30/23 01/09/24 01/03/24 History Vomiting metolazone 2.5 mg tablet See Rx Instructions .Route .COMPLEX 09/30/23 01/09/24 01/05/24 History nystatin 100,000 unit/gram topical See Rx Instructions .Route .COMPLEX 09/30/23 01/09/24 Unknown History powder ([facility]) magnesium L-lactate 84 mg 84 mg PO DAILY@10/12/23 01/09/24 01/08/24 History tablet,extended release methotrexate sodium 2.5 mg tablet 6 mg PO Q7D 10/12/23 01/09/24 01/05/24 History pyridoxine (vitamin B6) 250 mg 500 mg PO DAILY@10/12/23 01/09/24 01/08/24 History tablet (Vitamin B-6) aspirin 81 mg tablet,delayed 81 mg PO DAILY #30 tabs 10/19/23 01/09/24 01/08/24 Rx release melatonin 1 mg tablet 1 mg PO BEDTIME 12/05/23 01/09/24 01/08/24 History bumetanide 2 mg tablet See Rx Instructions .Route .COMPLEX 12/15/23 01/09/24 01/07/24 History insulin glargine 100 unit/mL (3 12 unit SUBCUT BEDTIME 12/15/23 01/09/24 01/08/24 History mL) subcutaneous pen (Lantus Solostar U-100 Insulin) metoprolol tartrate 50 mg tablet 50 mg PO BID 12/15/23 01/09/24 01/08/24 History midodrine 10 mg tablet 10 mg PO TID PRN SBP less than 115 01/07/24 01/09/24 Unknown Rx mmhg #90 tabs folic acid 1 mg tablet 1 mg PO DAILY 01/09/24 01/09/24 01/08/24 History [facility] 80 % [facility] See [facility]ructions .Route .COMPLEX 01/09/24 01/09/24 01/08/24 History (honey)) lidocaine 5 % topical patch 1 patch topical BID 01/09/24 01/09/24 01/08/24 History melatonin 1 mg tablet 1 mg PO BEDTIME 01/09/24 01/09/24 01/08/24 History Allergies Allergy/AdvReac Type Severity Reaction Status Date / Time adhesive tape Allergy rash Verified 01/07/24 09:18 cinnamon Allergy sinus Verified 01/07/24 09:18 codeine Allergy unknown Verified 01/07/24 09:18 cedar Allergy sinus Uncoded 01/07/24 09:18 pine Allergy sinus Uncoded 01/07/24 09:18 pork food Allergy ADR-Nausea Uncoded 01/07/24 09:18 Current Medications Generic Name Dose Route Start Last Admin Trade Name Freq PRN Reason Stop Dose Admin Heparin Sodium (Porcine) 5,000 unit 01/09/24 13:45 01/09/24 13:58 Heparin 5,000 Unit/Ml Inj 1 Ml SUBCUT 5,000 unit Q12H JOCE Administration Piperacillin Sod/Tazobactam 50 mls @ 12.5 mls/hr 01/09/24 19:00 01/09/24 19:12 Sod 3.375 gm/ Sodium Chloride IV 12.5 mls/hr Q8H JOCE Administration Protocol Insulin Human Lispro 0 unit 01/09/24 18:00 01/09/24 19:00 Insulin Lispro 100 Unit/1 Ml SUBCUT Not Given WM&BEDTIME JOCE Protocol Metoprolol Tartrate 50 mg 01/09/24 18:00 01/09/24 19:12 Metoprolol Tartrate 50 Mg Tablet PO 50 mg BID JOCE Administration PFSH Acute PFSH: Medical History UTI (urinary tract infection) Major depressive disorder, recurrent episode, moderate with anxious distress Duodenal ulcer due to bacteria Psychiatric care Coronary artery disease Immunization counseling High risk medication use Chronic knee pain Chronic low back pain COVID-14 August 2020 Seronegative rheumatoid arthritis of both hands Intermittent atrial fibrillation Poorly controlled diabetes mellitus CHF exacerbation Narrow complex tachycardia Inflammatory arthritis Osteoarthritis of knees, bilateral Fibromyalgia Lung nodule Unstable angina Low back pain of over 3 months duration Urgency incontinence Left renal mass COPD (chronic obstructive pulmonary disease) Oxygen dependent, 2 L at baseline Anxiety and depression Hypothyroidism Liver cirrhosis Hyperlipidemia Hypertension Recurrent UTI Surgical History History of cholecystectomy History of thyroid surgery History of cardiac cath History of hysterectomy History of knee replacement Family History Other CAD (coronary artery disease) Cancer Denies family history of Anesthesia complication Bleeding disorder Social History Smoking and tobacco/nicotine status: former use of tobacco/nicotine Quit status (tobacco/nicotine): has quit using Year quit tobacco: 2005 Second hand smoke exposure: No Alcohol intake: never Substance/Drug Use: never Adopted: No Caregiver/support person: No Lives independently: No Household members: spouse Marital status: Current occupational status: retired Current gender identity: Female Vitals/I&O/Wt Last Vital Signs Temp 97.6 F 01/09/24 14:31 Pulse 101 H 01/09/24 18:15 Resp 20 H 01/09/24 18:15 BP 133/86 01/09/24 18:15 Pulse Ox 97 01/09/24 18:15 O2 Del Method BiPAP 01/09/24 14:52 O2 Flow Rate 40 01/09/24 14:52 FiO2 40 01/09/24 17:41 01/09/24 01/09/24 01/09/24 06:59 14:59 22:59 Intake Total 300 / 300 250 / 550 Balance 300 / 300 250 / 550 Weight last 48 hrs Weight 90.804 kg Weight 90.718 kg Physical Exam Narrative: awake , alert , on bipap Urinary Catheter Management: Manzanares: Cath Placed During This Visit: yes Reason for Continuing Indwelling Catheter: Accurate Measurement of Urinary Output in Critically Ill Patients Urinary Catheter Date of Insertion: 01/09/24 Urinary Catheter Time of Insertion: 11:17 Data 01/10/24 04:07 01/10/24 04:07 Micro: Microbiology 01/09/24 10:00 Blood Culture - Preliminary Blood SPECIMEN COLLECTED 01/09/24 10:05 Blood Culture - Preliminary Blood SPECIMEN COLLECTED A&P Assessment and plan (1) End stage renal disease on dialysis: Plan 1. End-stage renal disease: On TTS schedule as outpatient, will do extra ultrafiltration today due to volume overload and shortness of breath 2 g sodium restriction 1500 mill fluid restriction 2. History of CHF with recurrent volume overload, ultrafiltration as above and HD tomorrow 3. Anemia: He will order CARY with HD 4. History of A-fib 5. Coronary artery disease Patient evaluated using audiovisual cart. Time spent 40 minutes. Coding Level of Care Code Acute Code for Chg Fwd Diagnoses End stage renal disease on dialysis N18.6; Z99.2
[2024-01-09 21:19] LABS: Hepatitis B Surface AB < 3.5 (11.5-1000); Hepatitis B Surface Antigen Non-Reactive (Nonreactive)
[2024-01-09 22:26] LABS: Glucose Point of Care 132 mg/dL (70-110)
[2024-01-09] MEDS: FUROsemide 10 mg/mL SDV 4mL 40 MG IVP (23:08)
[2024-01-10] VITALS (66 sets, daily range): BP systolic 80–161; BP diastolic 37–136; PULSE 77–109; RESP 14–29; TEMP 36.4–37.1; O2SAT 86–100; BMI 34.0
[2024-01-10] MEDS: ondansetron 2 mg/ML SDV 2 mL 4 MG IVP ×2 (00:02→17:41)
[2024-01-10] MEDS: piperacillin-tazobactam 3.375 GM in sodium chloride 0.9% (plus) 50 ML IV ×2 (02:33→12:05)
[2024-01-10] MEDS: heparin 5,000 unit/mL INJ 1 mL 5000 UNIT SUBCUT ×2 (02:34→13:38)
[2024-01-10 04:24] LABS: Hematocrit 25.6 % (36-47); Mean Corpuscular HGB Conc 30.1 g/dL (30-55); Mean Corpuscular Hemoglobin 29.8 pg (27-33); Mean Corpuscular Volume 99.2 fl (85-98); Platelet Count 270 10^3/cmm (157-399); Red Blood Count 2.58 10^6/uL (3.85-5.65); White Blood Count 9.25 10^3/uL (3.29-11.43)
[2024-01-10 04:47] LABS: Alanine Aminotransferase 23 U/L (0-33); Albumin Level 2.7 g/dL (3.5-5.2); Alkaline Phosphatase 180 U/L (35-105); Anion Gap 13.4 (5-19); Aspartate Amino Transferase 20 U/L (0-32); Blood Urea Nitrogen 25 mg/dL (8-23); Calcium 8.7 mg/dL (8.5-10.5); Carbon Dioxide 28 mmol/L (22-29); Chloride 101 mmol/L (98-107); Globulin 2.6 g/dL (1.3-4.6); Glucose 107 mg/dL (65-115); Magnesium 1.7 mg/dL (1.7-2.3); Osmolality Calculated 291 mOsm/kg (285-295); Potassium 4.4 mmol/L (3.5-5.1); Sodium 138 mmol/L (136-145); Total Bilirubin 0.7 mg/dL (0.15-1.2); Total Protein 5.3 g/dL (6.6-8.7)
[2024-01-10 04:53] LABS: Creatinine Clr Calc Pharmacy 24.1152
[2024-01-10 05:40] LABS: Add RBC Morph Yes; Slide Review Slide Review Perform
[2024-01-10 05:41] LABS: Anisocytosis 3+; Hypochromasia 3+; Macrocytosis 1+; Microcytosis Trace; Target Cells 1+
[2024-01-10 05:42] LABS: RBC Morph Comp Yes
[2024-01-10 05:43] LABS: Absolute Segmented Neutrophil 4.6 10/cmm (1.6-7.1); Band Neutrophils Absolute 2.1 10^3/cmm (0.0-1.2); Basophils Absolute 0.1 10^3/cmm (0.0-0.2); Eosinophils 0 %; Lymphocytes 11 %; Monocytes Absolute 0.9 10^3/cmm (0.1-0.6); Segmented Neutrophils 50 %; Total Cells Counted 100 (0-100)
[2024-01-10 05:44] LABS: Absolute Neutrophil 6.8 10^3/cmm (1.4-6.5); Platelet Estimate Normal (Normal)
[2024-01-10] MEDS: duloxetine 60 mg Capsule PO (06:20)
[2024-01-10] MEDS: levothyroxine 150 mcg Tablet PO (06:20)
[2024-01-10] MEDS: amiodarone 200 mg Tablet PO (06:20)
[2024-01-10] MEDS: cholecalciferol (vitamin D3) 1,000 unit Tablet 1000 UNIT PO (06:20)
--- NOTE | 2024-01-10 07:16 | P.PN_ITS ---
Subjective 2 Subjective: s/p HD yesterday with 1 L UF Medications: Reviewed: Yes Vitals/I&O/Wt Last Vital Signs Temp 98 F 01/10/24 06:15 Pulse 96 01/10/24 07:00 Resp 22 H 01/10/24 07:00 BP 129/90 01/10/24 06:30 Pulse Ox 98 01/10/24 07:00 O2 Del Method BiPAP 01/10/24 03:00 O2 Flow Rate 3 01/10/24 00:30 FiO2 40 01/10/24 03:11 01/09/24 01/10/24 01/10/24 22:59 06:59 14:59 Intake Total 1150 / 1450 50 / 1500 Output Total 2053 / 2053 450 / 2504 Balance -904 / -604 -400 / -1004 Weight last 48 hrs Weight 95.2 kg Weight 90.804 kg Weight 90.718 kg Physical Exam 2 Narrative: awake , alert , on bipap Urinary Catheter Management: Manzanares: Cath Placed During This Visit: yes Reason for Continuing Indwelling Catheter: Accurate Measurement of Urinary Output in Critically Ill Patients Urinary Catheter Date of Insertion: 01/09/24 Urinary Catheter Time of Insertion: 11:17 Data 01/10/24 04:07 01/10/24 04:07 Micro: Microbiology 01/09/24 10:00 Blood Culture - Preliminary Blood SPECIMEN COLLECTED 01/09/24 10:05 Blood Culture - Preliminary Blood SPECIMEN COLLECTED A&P Assessment and plan (1) End stage renal disease on dialysis: Plan 1. End-stage renal disease: On TTS schedule as outpatient, s/p Ultrafiltration yesterday and plan for HD today , unable to get much UF due to low BPs 2 g sodium restriction 1500 mill fluid restriction 2. History of CHF with recurrent volume overload, ultrafiltration as above 3. Anemia: He will order CARY with HD 4. History of A-fib 5. Coronary artery disease Patient evaluated using audiovisual cart. Time spent 20 minutes. Attestations 2 Medical Necessity Statement*: per nano Coding Level of Care Code Acute Code for Chg Fwd Diagnoses End stage renal disease on dialysis N18.6; Z99.2
[2024-01-10 07:47] LABS: Glucose Point of Care 119 mg/dL (70-110)
[2024-01-10] MEDS: folic acid 1 mg Tablet PO (09:36)
[2024-01-10] MEDS: metoprolol tartrate 50 mg Tablet PO ×2 (09:36→17:40)
[2024-01-10] MEDS: pantoprazole 40 mg SDV IVP (09:36)
[2024-01-10] MEDS: magnesium lactate 84 mg Tablet PO (09:36)
[2024-01-10] MEDS: aspirin 81 mg EC Tablet PO (09:36)
[2024-01-10] MEDS: FUROsemide 10 mg/mL SDV 4mL 40 MG IVP (12:06)
[2024-01-10] MEDS: insulin lispro 100 unit/1 mL SUBCUT (13:01)
--- NOTE | 2024-01-10 13:24 | CT_ITS ---
WS: [id number] CT CHEST, ABDOMEN, AND PELVIS TECHNIQUE: Noncontrast CT of the chest, abdomen, and pelvis with coronal and sagittal reformatted mil ges. CLINICAL INFORMATION: r/o infection COMPARISON: None. DLP: 1051.[address] scans at [facility] use at least one of these dose optimization techniques: automated e xposure control; mA and/or kV adjustment per patient size (includes targeted exams where dose is matc hed to clinical indication); or iterative reconstruction. CT CHEST: Small RIGHT greater than LEFT bilateral pleural effusions with compressive atelectasis in the lung ba ses RIGHT greater than LEFT. Aortic calcification. Normal caliber thoracic aorta. Coronary calcificat ion. Cardiomegaly. Slight hazy groundglass infiltrates lingula and RIGHT middle lobe. Slight hazy inf iltrates in the lung bases. Mild interstitial edema in both lungs. Mild thoracic kyphosis. Mild thora cic curve. Central venous catheter with tip in the SVC. CT ABDOMEN AND PELVIS: Hepatomegaly. Slight cirrhotic configuration to the liver. Splenomegaly. Noncontrast pancreas is norm al. Fatty atrophy of the pancreas. Cholecystectomy clips. Normal GE junction. Adrenal glands are norm al. No hydronephrosis in either kidney. No obstructing renal or ureteral calculi. Bilateral renal cys ts. Bilateral renal cortical scarring. Normal caliber abdominal aorta. Aortic calcification. Diffuse body wall anasarca. Manzanares catheter in p lace. Lumbar scoliosis convex LEFT. Moderate to advanced spondylitic changes lumbar spine. No evidenc e of high-grade small or large bowel obstruction. Mild rectosigmoid constipation. CT/[place] [id number] IMPRESSION: 1. Small RIGHT greater than LEFT pleural effusions with compressive atelectasi s in the lung bases. 2. Interstitial edema in both lungs. Recommend correlation for CHF. 3. Slight hazy groundglass opacities throughout both lungs. Recommend correlat ion for pneumonia. This can also be seen with CHF. 4. Cirrhotic integration to the liver. 5. Diffuse body wall anasarca. 6. Manzanares catheter. 7. No evidence of fluid collection or abscess in the abdomen or pelvis. 8. Prior cholecystectomy.
--- NOTE | 2024-01-10 13:26 | P.PN_ITS ---
Subjective 2 Subjective: seen this am says she feels weak denies chest pain at this time urine culture positive for gram neg rods left shift bandemia on vanc plus meropenem Vitals/I&O/Wt Last Vital Signs Temp 98.1 F 01/10/24 10:00 Pulse 101 H 01/10/24 13:22 Resp 26 H 01/10/24 12:00 BP 116/87 01/10/24 12:00 Pulse Ox 99 01/10/24 13:22 O2 Del Method Nasal Cannula 01/10/24 12:00 O2 Flow Rate 3.5 01/10/24 12:00 FiO2 40 01/10/24 13:22 01/09/24 01/10/24 01/10/24 22:59 06:59 14:59 Intake Total 1150 / 1450 50 / 1500 290 / 290 Output Total 2053 / 2053 450 / 2504 Balance -904 / -604 -400 / -1004 290 / 290 Weight last 48 hrs Weight 92.932 kg Weight 95.2 kg Weight 90.804 kg Weight 90.718 kg Physical Exam 2 Narrative: General: Cooperative patient in no apparent distress. appears lethargic and weak, currently on BiPAP. HEENT: Normocephalic, Atraumatic. External ears normal. Nasal passages patent without drainage. MMM. Heart: Irregularly irregular rhythm. Resp: LCTA. No respiratory distress, no use of accessory muscles. Abd: Soft, non tender, no rebound or guarding. Non-distended. Extremities:trace edema. Urinary Catheter Management: Manzanares: Cath Placed During This Visit: yes Reason for Continuing Indwelling Catheter: Accurate Measurement of Urinary Output in Critically Ill Patients Urinary Catheter Date of Insertion: 01/09/24 Urinary Catheter Time of Insertion: 11:17 Data 01/10/24 04:07 01/10/24 04:07 Micro: Microbiology 01/09/24 10:00 Blood Culture - Preliminary Blood NEGATIVE TO DATE 01/09/24 10:05 Blood Culture - Preliminary Blood NEGATIVE TO DATE 01/09/24 11:15 Urine Culture - Preliminary Urine,Clean Catch Gram Negative Rods A&P Assessment and plan (1) Congestive heart failure (CHF): (2) Renal failure: (3) Chronic atrial fibrillation: (4) COPD (chronic obstructive pulmonary disease): Qualifiers: COPD type: unspecified COPD Qualified Code(s): J44.9 - Chronic obstructive pulmonary disease, unspecified (5) Weakness: (6) Physical deconditioning: (7) Generalized weakness: (8) Atrial fibrillation: Plan #UTI, bandemia #Acute on chronic congestive heart failure #End-stage renal disease on dialysis as an outpatient #Acute on Chronic hypoxic resp failure #Hx of multiple admissions #Immunocompromised, on adalimumab, methrotrexate outpatient, #A-fib with RVR #Hx of recent c.diff infection #Acute on Chronic anemia secondary to renal disease #CAD, #HTN, #COPD, breathing treatments. #HLD, #MDD, #Sacral decubitus ulcer, - Pt is fluid overloaded. CXR shows pulm vasc congestion ? Continue aspirin, atorvastatin, amiodarone, levothyroxine, magnesium, Metroprolol tartrate, midodrine ? DuoNeb every 6 hours as needed ? Continue methotrexate every 7 days ? Continue duloxetine ? COntinue Bumex today. ? Consult nephrology for dialysis ? Discussed with patient's and patient regarding CODE STATUS and further plan of care. Patient to remain full code. Patient okay with intubation and chest compressions if needed. -Sliding scale insulin for diabetes ? Continue Lantus at this time. ? COntinue mod dose intensity SSI ? Recheck labs in a.m. recheck BMP, CBC, magnesium in AM. - COnsult nephrology for dialysis - UA abnormal - Will tx for UTI - Place on vanc and zosyn empirically for now. - Check Urine Culture - Check Blood culture - Order 1 unit prbc (by ER). - Recheck CBC in AM - Continue on bipap and wean as able Full code DVT prophylaxis: Eliquis Todays plan 01/09 - check iron studies, ferritin, tibc, fobt - continue vanc + meropenem - gm neg rods in urine - consult gen surgery for eval of sacral decub ulcer. pt may require debridement - check ct chest abd pelvis - check cbc cmp in am - Bcx , urine culture pending - Sputum gm stain pending - Attestations 2 Medical Necessity Statement*: > 2midnight stay for mgmt of anemia, acute on chronic chf, respiratory failure Diagnoses Congestive heart failure (CHF) I50.9 Renal failure N19 Chronic atrial fibrillation I48.20 Chronic obstructive pulmonary disease, unspecified COPD type J44.9 COPD type: unspecified COPD Weakness R53.1 Physical deconditioning R53.81 Generalized weakness R53.1 Atrial fibrillation I48.91
[2024-01-10] MEDS: vancomycin 1,500 MG/300 ML PIGGYBACK 200 MG IV (13:37)
[2024-01-10 13:53] LABS: Ferritin 598 ng/mL (15-150); Iron 49 ug/dL (37-145); Percent Saturation 31.2 % (20-50); Total Iron Binding Capacity 157 mcg/dl; Unsaturated Iron Binding 108 ug/dL (112-347)
--- NOTE | 2024-01-10 15:00 | P.CONIM_ITS ---
Providers/Reason For Consult 2 Consulting Physician/Specialty*: Dr. Samuel Baxter, DO/General surgery Reason for Consult*: Sacral decubitus ulcer Attending Physician: Adriane Terry MD Primary Care Provider: Davion Griggs MD History of Present Illness History of Present Illness Myesha Parker is a 73 year old female with history of congestive heart failure, renal failure, CAD, HTN, COPD, HLD, MDD, sacral decubitus ulcer, hypotension, poor peripheral access, other medical problems discharged from the hospital on 10/20 after recent hospitalization for treatment of fluid overload, atrial fibrillation with RVR, NSTEMI, intubation and successfully extubated during her stay. Patient was restarted on her dialysis through hospitalization. She was recently discharged from the hospital after being diagnosed with C. difficile. Date of discharge was December 19. She presented again to the hospital with difficulty in breathing. Hospitalist consulted general surgery due to a sacral decubitus ulcer with eschar. Upon my examination of the patient she had not stooled herself with solid stool. While cleaning her with the nurse, gentle blunt debridement remove the eschar and revealed a stage II sacral decubitus ulcer. Review of Systems 2 General: Reports: 10 or more systems reviewed and unremarkable except in HPI and below Medications/Allergies Home Medications Medication Instructions Recorded Confirmed Last Taken Type cholecalciferol (vitamin D3) 25 1,000 unit PO DAILY@10/12/19 01/09/24 01/08/24 History mcg (1,000 unit) tablet (Vitamin D3) nitroglycerin 0.4 mg sublingual 0.4 mg sublingual Q5M PRN Chest 02/08/21 01/09/24 Unknown Rx tablet (Nitrostat) Pain #30 tabs calcium carbonate (Calcium 600) 600 mg PO DAILY@06/27/21 01/09/24 01/08/24 History levothyroxine 150 mcg tablet 150 mcg PO DAILY@06/27/21 01/09/24 01/09/24 History (Euthyrox) pantoprazole 40 mg tablet,delayed 40 mg PO BID 09/13/21 01/09/24 01/08/24 History release glucose 4 gram chewable tablet 4 g PO PRN PRN Hypoglycemia 06/17/23 01/09/24 Unknown History fluticasone fur. 200 mcg-umeclid 1 inh inhalation DAILY #28 ea 06/20/23 01/09/24 01/08/24 Rx 62.5 mcg-vilant 25 mcg inhalat.powder (Juvenal Ellipta) duloxetine 60 mg capsule,delayed 60 mg PO DAILY@07/25/23 01/09/24 01/08/24 History release insulin lispro 100 unit/mL See Rx Instructions .Route 08/17/23 01/09/24 01/08/24 Rx subcutaneous solution (Humalog .COMPLEX #10 mL U-100 Insulin) hydrocodone 5 mg-acetaminophen 325 1 tab PO TID PRN Pain 09/24/23 01/09/24 01/09/24 History mg tablet acetaminophen 325 mg tablet 650 mg PO Q6H PRN PAIN OR 09/30/23 01/09/24 01/04/24 History INCREASED TEMP amiodarone 200 mg tablet 200 mg PO DAILY@09/30/23 01/09/24 01/08/24 History bisacodyl 10 mg rectal suppository 10 mg NE DAILY PRN if no bm x3 days 09/30/23 01/09/24 11/22/23 History (Dulcolax (bisacodyl)) meclizine 25 mg tablet 25 mg PO TID PRN Nausea And 09/30/23 01/09/24 01/03/24 History Vomiting metolazone 2.5 mg tablet See Rx Instructions .Route .COMPLEX 09/30/23 01/09/24 01/05/24 History nystatin 100,000 unit/gram topical See Rx Instructions .Route .COMPLEX 09/30/23 01/09/24 Unknown History powder ([facility]) magnesium L-lactate 84 mg 84 mg PO DAILY@10/12/23 01/09/24 01/08/24 History tablet,extended release methotrexate sodium 2.5 mg tablet 6 mg PO Q7D 10/12/23 01/09/24 01/05/24 History pyridoxine (vitamin B6) 250 mg 500 mg PO DAILY@10/12/23 01/09/24 01/08/24 History tablet (Vitamin B-6) aspirin 81 mg tablet,delayed 81 mg PO DAILY #30 tabs 10/19/23 01/09/24 01/08/24 Rx release melatonin 1 mg tablet 1 mg PO BEDTIME 04/06/1901/09/24 01/08/24 History bumetanide 2 mg tablet See Rx Instructions .Route .COMPLEX 12/15/23 01/09/24 01/07/24 History insulin glargine 100 unit/mL (3 12 unit SUBCUT BEDTIME 12/15/23 01/09/24 01/08/24 History mL) subcutaneous pen (Lantus Solostar U-100 Insulin) metoprolol tartrate 50 mg tablet 50 mg PO BID 12/15/23 01/09/24 01/08/24 History midodrine 10 mg tablet 10 mg PO TID PRN SBP less than 115 01/07/24 01/09/24 Unknown Rx mmhg #90 tabs folic acid 1 mg tablet 1 mg PO DAILY 01/09/24 01/09/24 01/08/24 History honey 80 % topical gel (MediHoney See Rx Instructions .Route .COMPLEX 01/09/24 01/09/24 01/08/24 History (honey)) lidocaine 5 % topical patch 1 patch topical BID 01/09/24 01/09/24 01/08/24 History melatonin 1 mg tablet 1 mg PO BEDTIME 01/09/24 01/09/24 01/08/24 History Allergies Allergy/AdvReac Type Severity Reaction Status Date / Time adhesive tape Allergy rash Verified 01/07/24 09:18 cinnamon Allergy sinus Verified 01/07/24 09:18 codeine Allergy unknown Verified 01/07/24 09:18 cedar Allergy sinus Uncoded 01/07/24 09:18 pine Allergy sinus Uncoded 01/07/24 09:18 pork food Allergy ADR-Nausea Uncoded 01/07/24 09:18 Current Medications Generic Name Dose Route Start Last Admin Trade Name Freq PRN Reason Stop Dose Admin Amiodarone HCl 200 mg 01/10/24 07:00 01/10/24 06:20 Amiodarone 200 Mg Tablet PO 200 mg DAILY@07 JOCE Administration Aspirin 81 mg 01/10/24 09:00 01/10/24 09:36 Aspirin 81 Mg Ec Tablet PO 81 mg DAILY JOCE Administration Duloxetine HCl 60 mg 01/10/24 07:00 01/10/24 06:20 Duloxetine 60 Mg Capsule PO 60 mg DAILY@07 JOCE Administration Folic Acid 1 mg 01/10/24 09:00 01/10/24 09:36 Folic Acid 1 Mg Tablet PO 1 mg DAILY JOCE Administration Furosemide 40 mg 01/09/24 23:30 01/10/24 12:06 Furosemide 10 Mg/Ml Sdv 4ml IVP 40 mg Q12H JOCE Administration Heparin Sodium (Porcine) 5,000 unit 01/09/24 13:45 01/10/24 13:38 Heparin 5,000 Unit/Ml Inj 1 Ml SUBCUT 5,000 unit Q12H JOCE Administration Vancomycin/PEG/NADA/Lysine/Water 1,500 mg in 300 mls @ 200 mls/hr 01/10/24 13:00 01/10/24 13:37 Vancocin IV 200 mls/hr Q36H JOCE Administration Insulin Human Lispro 0 unit 01/09/24 18:00 01/10/24 13:01 Insulin Lispro 100 Unit/1 Ml SUBCUT 6 unit WM&BEDTIME JOCE Administration Protocol Levothyroxine Sodium 150 mcg 01/10/24 06:00 01/10/24 06:20 Levothyroxine 150 Mcg Tablet PO 150 mcg DAILY@06 [facility] Administration Magnesium Lactate 84 mg 01/10/24 08:00 01/10/24 09:36 Magnesium Lactate 84 Mg Tablet PO 84 mg DAILY@08 [facility] Administration Metoprolol Tartrate 50 mg 01/09/24 18:00 01/10/24 09:36 Metoprolol Tartrate 50 Mg Tablet PO 50 mg BID JOCE Administration Non-Formulary Medication 500 mg 01/10/24 08:00 01/10/24 09:37 Pyridoxine (Vitamin B6) [Vitamin B-6] PO Not Given DAILY@08 [facility] Ondansetron HCl 4 mg 01/09/24 13:41 01/10/24 00:02 Ondansetron 2 Mg/Ml Sdv 2 Ml IVP 4 mg Q6H PRN Administration NAUSEA AND VOMITING Pantoprazole Sodium 40 mg 01/10/24 09:00 01/10/24 09:36 Pantoprazole 40 Mg Sdv IVP 40 mg DAILY JOCE Administration Vitamin D 1,000 unit 01/10/24 07:00 01/10/24 06:20 Cholecalciferol (Vitamin D3) 1,000 Unit Tablet PO 1,000 unit DAILY@07 JOCE Administration PFSH Acute 2 PFSH: Medical History UTI (urinary tract infection) Major depressive disorder, recurrent episode, moderate with anxious distress Duodenal ulcer due to bacteria Psychiatric care Coronary artery disease Immunization counseling High risk medication use Chronic knee pain Chronic low back pain COVID-14 August 2020 Seronegative rheumatoid arthritis of both hands Intermittent atrial fibrillation Poorly controlled diabetes mellitus CHF exacerbation Narrow complex tachycardia Inflammatory arthritis Osteoarthritis of knees, bilateral Fibromyalgia Lung nodule Unstable angina Low back pain of over 3 months duration Urgency incontinence Left renal mass COPD (chronic obstructive pulmonary disease) Oxygen dependent, 2 L at baseline Anxiety and depression Hypothyroidism Liver cirrhosis Hyperlipidemia Hypertension Recurrent UTI Surgical History History of cholecystectomy History of thyroid surgery History of cardiac cath History of hysterectomy History of knee replacement Family History Other CAD (coronary artery disease) Cancer Denies family history of Anesthesia complication Bleeding disorder Social History Smoking and tobacco/nicotine status: former use of tobacco/nicotine Quit status (tobacco/nicotine): has quit using Year quit tobacco: 2005 Second hand smoke exposure: No Alcohol intake: never Substance/Drug Use: never Adopted: No Caregiver/support person: No Lives independently: No Household members: spouse Marital status: Current occupational status: retired Current gender identity: Female Vitals/I&O/Wt Last Vital Signs Temp 98.1 F 01/10/24 10:00 Pulse 82 01/10/24 14:00 Resp 20 H 01/10/24 14:00 BP 115/71 01/10/24 14:00 Pulse Ox 100 01/10/24 14:00 O2 Del Method BiPAP 01/10/24 14:00 O2 Flow Rate 3.5 01/10/24 12:00 FiO2 30 01/10/24 14:00 01/10/24 01/10/24 01/10/24 06:59 14:59 22:59 Intake Total 50 / 1500 410 / 410 Output Total 450 / 2504 Balance -400 / -1004 410 / 410 Weight last 48 hrs Weight 204 lb 14.081 oz Weight 209 lb 14.081 oz Weight 200 lb 3 oz Weight 200 lb Physical Exam 2 Narrative: General : Patient is well developed , no acute distress, oriented x3 Head : Normal cephalic, a-traumatic. Ears : Pinnae and external canal are normal. Hearing is normal. Eyes : PERRLA, Sclera and injection are normal. No conjunctival discharge. Nose : Mucous membranes are without erythema. Throat : buccal mucosa is normal, gums are without significant recession or hypertrophy. Lungs : Equal chest rise bilaterally, no use of accessory muscles, trachea is midline. Cor : Rate and rhythm are normal. Abdomen : Soft, ND, NT, no g/r/m Skin: There is a stage II sacral decubitus ulcer with larger surrounding stage I. No purulence Extremities : No edema, no cyanosis or clubbing, dorsalis pedis pulses are present bilaterally, non-tender to palpation of calves. Upper extremities are normal bilaterally. Back : non-tender to palpation, no CVA tenderness. Neuro : CN II - XII intact, Upper and lower extremities have equal and full strength Urinary Catheter Management: Manzanares: Cath Placed During This Visit: yes Reason for Continuing Indwelling Catheter: Accurate Measurement of Urinary Output in Critically Ill Patients Urinary Catheter Date of Insertion: 01/09/24 Urinary Catheter Time of Insertion: 11:17 Data 01/12/24 04:40 01/12/24 04:40 Micro: Microbiology 01/09/24 10:00 Blood Culture - Preliminary Blood NEGATIVE TO DATE 01/09/24 10:05 Blood Culture - Preliminary Blood NEGATIVE TO DATE 01/09/24 11:15 Urine Culture - Preliminary Urine,Clean Catch Gram Negative Rods A&P Assessment and plan (1) Sacral decubitus ulcer, stage II: Plan Keep sacral area clean and dry. Offload pressure as much as possible. Cover stage II area with Allevyn No acute surgical intervention Medical management per hospitalist General surgery will sign off. Please reconsult if the need arises Coding Level of Care Code 27475 Diagnoses Sacral decubitus ulcer, stage II L89.152
[2024-01-10 16:02] LABS: Glucose Point of Care 185 mg/dL (70-110)
[2024-01-10 17:51] LABS: Glucose Point of Care 84 mg/dL (70-110)
[2024-01-10] MEDS: meropenem 1,000 MG in sodium chloride 0.9% (plus) 50 ML 100 MG IV (18:22)
[2024-01-10] MEDS: albumin 12.5 GM/50 ML VIAL IV ×3 (20:05→21:20)
[2024-01-10] MEDS: heparin, porcine 1,000 unit/mL INJ 10 mL 1000 UNIT IV (20:57)
[2024-01-10] MEDS: heparin, porcine 1,000 unit/mL INJ 10 mL 10000 UNIT INTRACATH (20:58)
[2024-01-10] MEDS: acetaminophen 325 mg Tablet 650 MG PO (20:59)
[2024-01-10] MEDS: midodrine 5 mg TABLET 10 MG PO (20:59)
[2024-01-10 22:06] LABS: Glucose Point of Care 114 mg/dL (70-110)
--- NOTE | 2024-01-10 22:44 | PC.NURSE ---
Pain, Levophed Patient complaining of pain in her sacrum at a 6 on a 1-10 numerical scale. Additionally, patient's blood pressure ranging from 93-100 systolic, 58-67 diastolic. Dialysis nurse, Milvia, requesting blood pressure support to continue removing fluid during dialysis. Dr. Renee contacted for both of these issues. Orders received for tylenol 650 mg PO PRN Q6H for pain as well as a levophed drip.
[2024-01-11] VITALS (42 sets, daily range): BP systolic 98–163; BP diastolic 60–91; PULSE 68–110; RESP 17–31; TEMP 36.4–36.6; O2SAT 90–100; BMI 34.1
[2024-01-11] MEDS: FUROsemide 10 mg/mL SDV 4mL 40 MG IVP ×3 (00:02→23:35)
[2024-01-11] MEDS: heparin 5,000 unit/mL INJ 1 mL 5000 UNIT SUBCUT ×2 (02:29→13:59)
[2024-01-11] MEDS: acetaminophen 325 mg Tablet 650 MG PO ×2 (03:12→09:01)
[2024-01-11 05:25] LABS: Alanine Aminotransferase 21 U/L (0-33); Albumin Level 3.5 g/dL (3.5-5.2); Alkaline Phosphatase 175 U/L (35-105); Anion Gap 16.9 (5-19); Aspartate Amino Transferase 20 U/L (0-32); Blood Urea Nitrogen 19 mg/dL (8-23); Carbon Dioxide 28 mmol/L (22-29); Chloride 97 mmol/L (98-107); Globulin 3.4 g/dL (1.3-4.6); Glucose 118 mg/dL (65-115); Osmolality Calculated 289 mOsm/kg (285-295); Potassium 3.9 mmol/L (3.5-5.1); Sodium 138 mmol/L (136-145); Total Bilirubin 1.1 mg/dL (0.15-1.2); Total Protein 6.9 g/dL (6.6-8.7)
[2024-01-11 05:37] LABS: Creatinine Clr Calc Pharmacy 27.3926
[2024-01-11] MEDS: meropenem 1,000 MG in sodium chloride 0.9% (plus) 50 ML 100 MG IV ×2 (06:04→20:00)
[2024-01-11] MEDS: amiodarone 200 mg Tablet PO (06:07)
[2024-01-11] MEDS: cholecalciferol (vitamin D3) 1,000 unit Tablet 1000 UNIT PO (06:08)
[2024-01-11] MEDS: duloxetine 60 mg Capsule PO (06:08)
[2024-01-11] MEDS: levothyroxine 150 mcg Tablet PO (06:08)
[2024-01-11 08:35] LABS: Glucose Point of Care 105 mg/dL (70-110)
[2024-01-11] MEDS: metoprolol tartrate 50 mg Tablet PO ×2 (08:56→17:53)
[2024-01-11] MEDS: magnesium lactate 84 mg Tablet PO (08:56)
[2024-01-11] MEDS: folic acid 1 mg Tablet PO (08:56)
[2024-01-11] MEDS: aspirin 81 mg EC Tablet PO (08:56)
[2024-01-11] MEDS: pantoprazole 40 mg SDV IVP (08:57)
--- NOTE | 2024-01-11 09:17 | P.PN_ITS ---
Subjective 2 Subjective: events notd Medications: Reviewed: Yes Vitals/I&O/Wt Last Vital Signs Temp 97.6 F 01/11/24 05:00 Pulse 90 01/11/24 07:52 Resp 18 01/11/24 07:52 BP 121/75 01/11/24 06:15 Pulse Ox 98 01/11/24 07:52 O2 Del Method Nasal Cannula 01/11/24 07:52 O2 Flow Rate 2.5 01/11/24 07:52 FiO2 30 01/11/24 04:45 01/10/24 01/11/24 01/11/24 22:59 06:59 14:59 Intake Total 825 / 1235 700 / 1935 Output Total 250 / 250 3332 / 3582 Balance 575 / 985 -2632 / -1647 Weight last 48 hrs Weight 92.986 kg Weight 94.8 kg Weight 92.932 kg Weight 95.2 kg Weight 90.804 kg Weight 90.718 kg Physical Exam 2 Narrative: awake , alert , on bipap Urinary Catheter Management: Manzanares: Cath Placed During This Visit: yes Reason for Continuing Indwelling Catheter: Accurate Measurement of Urinary Output in Critically Ill Patients Urinary Catheter Date of Insertion: 01/09/24 Urinary Catheter Time of Insertion: 11:17 Data 01/10/24 04:07 01/11/24 04:51 Micro: Microbiology 01/10/24 02:35 Gram Stain - Final Sputum - Expectorated Sputum 01/09/24 10:00 Blood Culture - Preliminary Blood NEGATIVE TO DATE 01/09/24 10:05 Blood Culture - Preliminary Blood NEGATIVE TO DATE 01/09/24 11:15 Urine Culture - Preliminary Urine,Clean Catch Gram Negative Rods A&P Assessment and plan (1) End stage renal disease on dialysis: Plan 1. End-stage renal disease: On TTS schedule as outpatient, HD tomorrow 2 g sodium restriction 1500 mill fluid restriction 2. History of CHF with recurrent volume overload, ultrafiltration as above 3. Anemia: He will order CARY with HD 4. History of A-fib 5. Coronary artery disease Patient evaluated using audiovisual cart. Time spent 20 minutes. Attestations 2 Medical Necessity Statement*: per medicine Coding Level of Care Code Acute Code for Chg Fwd Diagnoses End stage renal disease on dialysis N18.6; Z99.2
[2024-01-11 10:11] LABS: Basophils # 0.1 10^3/uL (0.0-0.1); Basophils % 0.9 %; Eosinophils # 0.1 10^3/uL (0.0-0.8); Eosinophils % 1.4 %; Hematocrit 32.3 % (36-47); Lymphocytes # 0.5 10^3/uL (0.8-4.8); Mean Corpuscular Hemoglobin 30.1 pg (27-33); Mean Corpuscular Volume 97.3 fl (85-98); Mean Platelet Volume 8.9 fL (7.4-10.4); Monocytes # 0.7 10^3/uL (0.2-0.9); Monocytes % 9.7 %; Neutrophils # 5.73 10^3/uL (1.8-7.7); Neutrophils % 77.5 %; Nucleated Red Blood Cells % 0 %; Platelet Count 258 10^3/cmm (157-399); Red Blood Count 3.32 10^6/uL (3.85-5.65); Red Cell Distribution Width 24.6 % (12.1-15.1)
--- NOTE | 2024-01-11 11:37 | P.PN_ITS ---
Subjective 2 Subjective: Hemoglobin 10.0 on CBC this morning. General surgery yesterday. No intervention needed for sacral decubitus ulcers. Urine culture positive for gram-negative rods. Final culture pending. Discussed option of hospice with patient however she states she is not interested at this time. Vitals/I&O/Wt Last Vital Signs Temp 97.6 F 01/11/24 05:00 Pulse 110 H 01/11/24 09:55 Resp 18 01/11/24 07:52 BP 121/75 01/11/24 06:15 Pulse Ox 92 01/11/24 09:55 O2 Del Method Nasal Cannula 01/11/24 07:52 O2 Flow Rate 2.5 01/11/24 07:52 FiO2 35 01/11/24 09:55 01/10/24 01/11/24 01/11/24 22:59 06:59 14:59 Intake Total 825 / 1235 700 / 1935 Output Total 250 / 250 3332 / 3582 Balance 575 / 985 -2632 / -1647 Weight last 48 hrs Weight 92.986 kg Weight 94.8 kg Weight 92.932 kg Weight 95.2 kg Weight 90.804 kg Physical Exam 2 Narrative: General: Cooperative patient in no apparent distress. HEENT: Normocephalic, Atraumatic. External ears normal. Nasal passages patent without drainage. MMM. Heart: Irregularly irregular rhythm. Resp: LCTA. No respiratory distress, no use of accessory muscles. Abd: Soft, non tender, no rebound or guarding. Non-distended. Extremities:trace edema. Urinary Catheter Management: Manzanares: Cath Placed During This Visit: yes Reason for Continuing Indwelling Catheter: Accurate Measurement of Urinary Output in Critically Ill Patients Urinary Catheter Date of Insertion: 01/09/24 Urinary Catheter Time of Insertion: 11:17 Data 01/11/24 10:05 01/11/24 04:51 Micro: Microbiology 01/09/24 11:15 Urine Culture - Final Urine,Clean Catch Klebsiella pneumonia esbl 01/10/24 02:35 Gram Stain - Final Sputum - Expectorated Sputum 01/09/24 10:00 Blood Culture - Preliminary Blood NEGATIVE TO DATE 01/09/24 10:05 Blood Culture - Preliminary Blood NEGATIVE TO DATE A&P Assessment and plan (1) Congestive heart failure (CHF): (2) Renal failure: (3) Chronic atrial fibrillation: (4) COPD (chronic obstructive pulmonary disease): Qualifiers: COPD type: unspecified COPD Qualified Code(s): J44.9 - Chronic obstructive pulmonary disease, unspecified (5) Weakness: (6) Physical deconditioning: (7) Generalized weakness: (8) Atrial fibrillation: Plan #UTI, bandemia #Acute on chronic congestive heart failure #End-stage renal disease on dialysis as an outpatient #Acute on Chronic hypoxic resp failure #Hx of multiple admissions #Immunocompromised, on adalimumab, methrotrexate outpatient, #A-fib with RVR #Hx of recent c.diff infection #Acute on Chronic anemia secondary to renal disease #CAD, #HTN, #COPD, breathing treatments. #HLD, #MDD, #Sacral decubitus ulcer, - Pt is fluid overloaded. CXR shows pulm vasc congestion ? Continue aspirin, atorvastatin, amiodarone, levothyroxine, magnesium, Metroprolol tartrate, midodrine ? DuoNeb every 6 hours as needed ? Continue methotrexate every 7 days ? Continue duloxetine ? COntinue Bumex today. ? Consult nephrology for dialysis ? Discussed with patient's and patient regarding CODE STATUS and further plan of care. Patient to remain full code. Patient okay with intubation and chest compressions if needed. -Sliding scale insulin for diabetes ? Continue Lantus at this time. ? COntinue mod dose intensity SSI ? Recheck labs in a.m. recheck BMP, CBC, magnesium in AM. - COnsult nephrology for dialysis - UA abnormal - Will tx for UTI - Place on vanc and zosyn empirically for now. - Check Urine Culture - Check Blood culture - Order 1 unit prbc (by ER). - Recheck CBC in AM - Continue on bipap and wean as able Full code DVT prophylaxis: Eliquis Todays plan 01/10 - check iron studies, ferritin, tibc, fobt, consistent with anemia of chronic disease - continue vanc + meropenem - gm neg rods in urine, final culture pending. - consult gen surgery for eval of sacral decub ulcer. Intervention by general surgery. - check ct chest abd pelvis?1. Small RIGHT greater than LEFT pleural effusions with compressive atelectasis in the lung bases. 2. Interstitial edema in both lungs. Recommend correlation for CHF. 3. Slight hazy groundglass opacities throughout both lungs. Recommend correlation for pneumonia. This can also be seen with CHF. 4. Cirrhotic integration to the liver. 5. Diffuse body wall anasarca. 6. Manzanares catheter. 7. No evidence of fluid collection or abscess in the abdomen or pelvis. 8. Prior cholecystectomy. - check cbc cmp in am - Bcx , urine culture pending - Sputum gm stain pending Transfer to floor today. - Attestations 2 Medical Necessity Statement*: > 2midnight stay for mgmt of anemia, acute on chronic chf, respiratory failure Diagnoses Congestive heart failure (CHF) I50.9 Renal failure N19 Chronic atrial fibrillation I48.20 Chronic obstructive pulmonary disease, unspecified COPD type J44.9 COPD type: unspecified COPD Weakness R53.1 Physical deconditioning R53.81 Generalized weakness R53.1 Atrial fibrillation I48.91
[2024-01-11 13:03] LABS: Glucose Point of Care 129 mg/dL (70-110)
[2024-01-11] MEDS: ondansetron 2 mg/ML SDV 2 mL 4 MG IVP (13:59)
--- NOTE | 2024-01-11 15:22 | PC.SOCIAL ---
Pg 2 IMM Explained to pt Pg 2 IMM. No questions voiced. Provided pt a copy. Initialed, dated, & timed a copy & placed in chart.
[2024-01-11 16:56] LABS: Glucose Point of Care 171 mg/dL (70-110)
--- NOTE | 2024-01-11 17:30 | PC.NURSE ---
Report called to [facility] [employer]. Report given to TAYO Rico.
[2024-01-11] MEDS: insulin lispro 100 unit/1 mL SUBCUT (17:52)
--- NOTE | 2024-01-11 18:15 | PC.NURSE ---
Pt transferred via bed to [facility]. All belongings with patient ( bath supplies). , Gerardo, at bedside.
[2024-01-11 20:47] LABS: Glucose Point of Care 138 mg/dL (70-110)
[2024-01-12] VITALS (9 sets, daily range): BP systolic 98–153; BP diastolic 58–104; PULSE 70–105; RESP 16–26; TEMP 36.4–36.9; O2SAT 93–100
[2024-01-12] MEDS: heparin 5,000 unit/mL INJ 1 mL 5000 UNIT SUBCUT ×2 (01:44→15:04)
[2024-01-12] MEDS: vancomycin 1,500 MG/300 ML PIGGYBACK 200 MG IV (01:50)
[2024-01-12 05:19] LABS: Basophils # 0.1 10^3/uL (0.0-0.1); Basophils % 0.8 %; Eosinophils # 0.2 10^3/uL (0.0-0.8); Eosinophils % 2.2 %; Lymphocytes % 10.9 %; Mean Corpuscular HGB Conc 29.7 g/dL (30-55); Mean Corpuscular Hemoglobin 30.4 pg (27-33); Mean Corpuscular Volume 102.6 fl (85-98); Mean Platelet Volume 9.1 fL (7.4-10.4); Monocytes # 1.3 10^3/uL (0.2-0.9); Monocytes % 15.2 %; Neutrophils % 67.4 %; Nucleated Red Blood Cells % 0 %; Platelet Count 276 10^3/cmm (157-399); Red Blood Count 3.12 10^6/uL (3.85-5.65); Red Cell Distribution Width 24.1 % (12.1-15.1); White Blood Count 8.75 10^3/uL (3.29-11.43)
[2024-01-12 05:35] LABS: Alanine Aminotransferase 17 U/L (0-33); Alkaline Phosphatase 164 U/L (35-105); Anion Gap 17.8 (5-19); Aspartate Amino Transferase 20 U/L (0-32); Blood Urea Nitrogen 30 mg/dL (8-23); Carbon Dioxide 26 mmol/L (22-29); Chloride 95 mmol/L (98-107); Creatinine Clr Calc Pharmacy 21.9141; Globulin 3.5 g/dL (1.3-4.6); Glucose 98 mg/dL (65-115); Osmolality Calculated 286 mOsm/kg (285-295); Potassium 3.8 mmol/L (3.5-5.1); Sodium 135 mmol/L (136-145); Total Bilirubin 0.4 mg/dL (0.15-1.2); Total Protein 6.5 g/dL (6.6-8.7)
[2024-01-12 06:26] LABS: Glucose Point of Care 113 mg/dL (70-110)
[2024-01-12] MEDS: cholecalciferol (vitamin D3) 1,000 unit Tablet 1000 UNIT PO (06:47)
[2024-01-12] MEDS: levothyroxine 150 mcg Tablet PO (06:47)
[2024-01-12] MEDS: duloxetine 60 mg Capsule PO (06:47)
[2024-01-12] MEDS: meropenem 1,000 MG in sodium chloride 0.9% (plus) 50 ML 100 MG IV ×2 (06:47→19:27)
[2024-01-12] MEDS: amiodarone 200 mg Tablet PO (06:47)
[2024-01-12] MEDS: aspirin 81 mg EC Tablet PO (09:49)
[2024-01-12] MEDS: folic acid 1 mg Tablet PO (09:49)
[2024-01-12] MEDS: magnesium lactate 84 mg Tablet PO (09:49)
[2024-01-12] MEDS: metoprolol tartrate 50 mg Tablet PO ×2 (09:49→18:23)
[2024-01-12] MEDS: pantoprazole 40 mg SDV IVP (09:49)
[2024-01-12] MEDS: ondansetron 2 mg/ML SDV 2 mL 4 MG IVP ×2 (09:50→18:24)
[2024-01-12] MEDS: midodrine 5 mg TABLET 10 MG PO (09:56)
[2024-01-12] MEDS: heparin, porcine 1,000 unit/mL INJ 10 mL 10000 UNIT HE (10:00)
[2024-01-12] MEDS: heparin, porcine 1,000 unit/mL INJ 10 mL 10000 UNIT INTRACATH (10:00)
[2024-01-12 10:01] LABS: Basophils # 0.1 10^3/uL (0.0-0.1); Basophils % 0.9 %; Eosinophils # 0.1 10^3/uL (0.0-0.8); Eosinophils % 1.1 %; Hematocrit 34.2 % (36-47); Lymphocytes # 0.6 10^3/uL (0.8-4.8); Lymphocytes % 5.9 %; Mean Corpuscular HGB Conc 30.1 g/dL (30-55); Mean Corpuscular Hemoglobin 30.4 pg (27-33); Mean Corpuscular Volume 100.9 fl (85-98); Monocytes # 0.8 10^3/uL (0.2-0.9); Monocytes % 8.6 %; Neutrophils # 7.55 10^3/uL (1.8-7.7); Neutrophils % 80.9 %; Nucleated Red Blood Cells % 0 %; Platelet Count 283 10^3/cmm (157-399); Red Blood Count 3.39 10^6/uL (3.85-5.65); Red Cell Distribution Width 24.3 % (12.1-15.1); White Blood Count 9.32 10^3/uL (3.29-11.43)
[2024-01-12] MEDS: albumin 12.5 GM/50 ML VIAL IV ×2 (11:10→11:54)
[2024-01-12 11:29] LABS: Glucose Point of Care 121 mg/dL (70-110)
[2024-01-12 17:24] LABS: Glucose Point of Care 175 mg/dL (70-110)
[2024-01-12 21:00] LABS: Glucose Point of Care 137 mg/dL (70-110)
--- NOTE | 2024-01-12 22:07 | P.PN_ITS ---
Subjective 2 Subjective: getting hd Medications: Reviewed: Yes Vitals/I&O/Wt Last Vital Signs Temp 97.5 F L 01/12/24 20:00 Pulse 70 01/12/24 20:00 Resp 19 H 01/12/24 20:00 BP 129/73 01/12/24 20:00 Pulse Ox 96 01/12/24 20:00 O2 Del Method Nasal Cannula 01/12/24 20:00 O2 Flow Rate 3.5 01/11/24 17:00 FiO2 35 01/12/24 20:00 01/12/24 01/12/24 01/12/24 06:59 14:59 22:59 Intake Total 300 / 1000 334 / 334 340 / 674 Output Total 550 / 925 Balance -250 / 75 334 / 334 340 / 674 Weight last 48 hrs Weight 97.568 kg Weight 92.986 kg Weight 94.8 kg Physical Exam 2 Narrative: awake , alert , Urinary Catheter Management: Manzanares: Cath Placed During This Visit: yes Reason for Continuing Indwelling Catheter: Other Urinary Catheter Date of Insertion: 01/09/24 Urinary Catheter Time of Insertion: 11:17 Data 01/12/24 09:53 01/12/24 04:40 Micro: Microbiology 01/10/24 02:35 Gram Stain - Final Sputum - Expectorated Sputum Sputum Culture - Preliminary Coag positive Staphylococcus Yeast species 01/11/24 13:53 Occult Blood (FIT) - Final Stool Routine Collection A&P Assessment and plan (1) End stage renal disease on dialysis: Plan 1. End-stage renal disease: On TTS schedule as outpatient, HD today 2 g sodium restriction 1500 mill fluid restriction 2. History of CHF with recurrent volume overload, ultrafiltration as above 3. Anemia: He will order CARY with HD 4. History of A-fib 5. Coronary artery disease Patient evaluated using audiovisual cart. Time spent 20 minutes. Attestations 2 Medical Necessity Statement*: per medicine Coding Level of Care Code Acute Code for Chg Fwd Diagnoses End stage renal disease on dialysis N18.6; Z99.2
--- NOTE | 2024-01-12 23:05 | P.PN_ITS ---
Subjective 2 Subjective: resting comfortably with BIPAP Vitals/I&O/Wt Last Vital Signs Temp 98.2 F 01/12/24 22:32 Pulse 90 01/12/24 22:32 Resp 20 H 01/12/24 22:32 BP 98/83 01/12/24 22:32 Pulse Ox 96 01/12/24 20:00 O2 Del Method Nasal Cannula 01/12/24 20:00 O2 Flow Rate 3.5 01/11/24 17:00 FiO2 35 01/12/24 20:00 01/12/24 01/12/24 01/13/24 14:59 22:59 06:59 Intake Total 334 / 334 840 / 1174 Output Total 3392 / 3392 Balance 334 / 334 -2552 / -2218 Weight last 48 hrs Weight 11 lb 3.897 oz Weight 215 lb 1.6 oz Weight 204 lb 15.971 oz Weight 208 lb 15.971 oz Physical Exam 2 Narrative: General: Cooperative patient in no apparent distress. HEENT: Normocephalic, Atraumatic. External ears normal. Nasal passages patent without drainage. MMM. Heart: Irregularly irregular rhythm. Resp: LCTA. No respiratory distress, no use of accessory muscles. Abd: Soft, non tender, no rebound or guarding. Non-distended. Extremities:trace edema. Urinary Catheter Management: Manzanares: Cath Placed During This Visit: yes Reason for Continuing Indwelling Catheter: Other Urinary Catheter Date of Insertion: 01/09/24 Urinary Catheter Time of Insertion: 11:17 Data 01/12/24 09:53 01/12/24 04:40 Micro: Microbiology 01/10/24 02:35 Gram Stain - Final Sputum - Expectorated Sputum Sputum Culture - Preliminary Coag positive Staphylococcus Yeast species A&P Assessment and plan (1) Congestive heart failure (CHF): (2) Renal failure: (3) Chronic atrial fibrillation: (4) COPD (chronic obstructive pulmonary disease): Qualifiers: COPD type: unspecified COPD Qualified Code(s): J44.9 - Chronic obstructive pulmonary disease, unspecified (5) Weakness: (6) Physical deconditioning: (7) Generalized weakness: (8) Atrial fibrillation: Plan #UTI, bandemia #Acute on chronic congestive heart failure #End-stage renal disease on dialysis as an outpatient #Acute on Chronic hypoxic resp failure #Hx of multiple admissions #Immunocompromised, on adalimumab, methrotrexate outpatient, #A-fib with RVR #Hx of recent c.diff infection #Acute on Chronic anemia secondary to renal disease #CAD, #HTN, #COPD, breathing treatments. #HLD, #MDD, #Sacral decubitus ulcer, - CXR shows pulm vasc congestion ? Continue aspirin, atorvastatin, amiodarone, levothyroxine, magnesium, Metroprolol tartrate, midodrine ? DuoNeb every 6 hours as needed ? Continue methotrexate every 7 days ? Continue duloxetine ? COntinue Bumex today. ? Consult nephrology for dialysis ? Discussed with patient's and patient regarding CODE STATUS and further plan of care. Patient to remain full code. Patient okay with intubation and chest compressions if needed. -Sliding scale insulin for diabetes ? Continue Lantus at this time. ? Continue mod dose intensity SSI ? Recheck labs in a.m. recheck BMP, CBC, magnesium in AM. - Consult nephrology for dialysis - UA abnormal - tx for UTI - Place on vanc and zosyn empirically for now. - FU CX M - Continue on bipap and wean as able Full code DVT prophylaxis: Neil - Attestations 2 Medical Necessity Statement*: abx, PT, HD, O2 Coding Level of Care Code 35916 Diagnoses Congestive heart failure (CHF) I50.9 Renal failure N19 Chronic atrial fibrillation I48.20 Chronic obstructive pulmonary disease, unspecified COPD type J44.9 COPD type: unspecified COPD Weakness R53.1 Physical deconditioning R53.81 Generalized weakness R53.1 Atrial fibrillation I48.91
[2024-01-12] MEDS: FUROsemide 10 mg/mL SDV 4mL 40 MG IVP (23:36)
[2024-01-12] MEDS: hyDROXYzine 25 mg Capsule PO (23:37)
[2024-01-12] MEDS: acetaminophen 325 mg Tablet 650 MG PO (23:37)
[2024-01-13] VITALS (14 sets, daily range): BP systolic 115–136; BP diastolic 56–88; PULSE 87–114; RESP 16–26; TEMP 36.4–36.7; O2SAT 94–100
[2024-01-13] MEDS: heparin 5,000 unit/mL INJ 1 mL 5000 UNIT SUBCUT ×2 (02:16→14:00)
[2024-01-13] MEDS: meropenem 1,000 MG in sodium chloride 0.9% (plus) 50 ML 100 MG IV ×2 (05:54→18:06)
[2024-01-13] MEDS: cholecalciferol (vitamin D3) 1,000 unit Tablet 1000 UNIT PO (05:54)
[2024-01-13] MEDS: levothyroxine 150 mcg Tablet PO (05:54)
[2024-01-13] MEDS: duloxetine 60 mg Capsule PO (05:54)
[2024-01-13] MEDS: amiodarone 200 mg Tablet PO (05:54)
[2024-01-13 06:26] LABS: Glucose Point of Care 138 mg/dL (70-110)
[2024-01-13] MEDS: aspirin 81 mg EC Tablet PO (09:08)
[2024-01-13] MEDS: pantoprazole 40 mg SDV IVP (09:08)
[2024-01-13] MEDS: folic acid 1 mg Tablet PO (09:08)
[2024-01-13] MEDS: metoprolol tartrate 50 mg Tablet PO ×2 (09:08→18:08)
[2024-01-13] MEDS: magnesium lactate 84 mg Tablet PO (09:08)
[2024-01-13 10:55] LABS: Glucose Point of Care 164 mg/dL (70-110)
[2024-01-13] MEDS: ipratropium-albuterol 3 mL Neb INHALATION (11:10)
[2024-01-13] MEDS: insulin lispro 100 unit/1 mL SUBCUT ×2 (12:15→21:14)
[2024-01-13] MEDS: FUROsemide 10 mg/mL SDV 4mL 40 MG IVP (12:15)
[2024-01-13 13:45] LABS: Glucose Point of Care 177 mg/dL (70-110)
--- NOTE | 2024-01-13 13:45 | ECG_ITS ---
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 Measurements Intervals Withams Rate: 94 P: 0 WY: 0 QRS: -75 QRSD: 181 T: 60 QT: 439 QTc: 549 Interpretive Statements ATRIAL FIBRILLATION RIGHT BUNDLE BRANCH BLOCK [120+ ms QRS DURATION, UPRIGHT V1, 40+ ms S IN I/aVL/V4/V5/V6] LEFT ANTERIOR FASCICULAR BLOCK [QRS AXIS <= -45, QR IN I, RS IN II] POSSIBLE ANTERIOR MYOCARDIAL INFARCTION , OF INDETERMINATE AGE [30 ms Q WAVE IN V3/V4, OR R < 0.2 mV IN V4] Compared to ECG 01/09/2024 17:06:48 T-wave abnormality no longer present Possible ischemia no longer present Myocardial infarct finding still present Electronically Signed On 01-14-2024 12:56:16 CDT by Victoriano White M.D. [email or web address]
[2024-01-13] MEDS: vancomycin 1,500 MG/300 ML PIGGYBACK 200 MG IV (13:58)
[2024-01-13] MEDS: ondansetron 2 mg/ML SDV 2 mL 4 MG IVP (14:00)
[2024-01-13] MEDS: LORazepam 1 mg Tablet PO (15:10)
--- NOTE | 2024-01-13 15:52 | P.PN_ITS ---
Subjective 2 Subjective: reported nausea, chest pain, anxiety, and indigestion today at bedside stat ekg, troponin ordered zofran, and ativan given Vitals/I&O/Wt Last Vital Signs Temp 98.0 F 01/13/24 15:41 Pulse 102 H 01/13/24 15:41 Resp 16 01/13/24 15:41 BP 136/88 01/13/24 15:41 Pulse Ox 97 01/13/24 15:41 O2 Del Method Nasal Cannula 01/13/24 15:41 O2 Flow Rate 4 01/13/24 07:54 FiO2 35 01/13/24 11:09 01/13/24 01/13/24 01/13/24 06:59 14:59 22:59 Intake Total 530 / 530 Output Total 600 / 3992 Balance -600 / -2818 530 / 530 Weight last 48 hrs Weight 213 lb 4.8 oz Weight 11 lb 3.897 oz Weight 215 lb 1.6 oz Physical Exam 2 Narrative: General: Cooperative patient in no apparent distress. HEENT: Normocephalic, Atraumatic. External ears normal. Nasal passages patent without drainage. MMM. Heart: Irregularly irregular rhythm. Resp: LCTA. No respiratory distress, no use of accessory muscles. Abd: Soft, non tender, no rebound or guarding. Non-distended. Extremities:trace edema. Urinary Catheter Management: Manzanares: Cath Placed During This Visit: yes Reason for Continuing Indwelling Catheter: Acute Urinary Retention or Obstruction Urinary Catheter Date of Insertion: 01/09/24 Urinary Catheter Time of Insertion: 11:17 Data 01/12/24 09:53 01/12/24 04:40 Micro: Microbiology 01/10/24 02:35 Gram Stain - Final Sputum - Expectorated Sputum Sputum Culture - Preliminary Methicillin Resis Staph Aureus Yeast species A&P Assessment and plan (1) Congestive heart failure (CHF): (2) Renal failure: (3) Chronic atrial fibrillation: (4) COPD (chronic obstructive pulmonary disease): Qualifiers: COPD type: unspecified COPD Qualified Code(s): J44.9 - Chronic obstructive pulmonary disease, unspecified (5) Weakness: (6) Physical deconditioning: (7) Generalized weakness: (8) Atrial fibrillation: Plan #UTI, bandemia #Acute on chronic congestive heart failure #End-stage renal disease on dialysis as an outpatient #Acute on Chronic hypoxic resp failure #Hx of multiple admissions #Immunocompromised, on adalimumab, methrotrexate outpatient, #A-fib with RVR #Hx of recent c.diff infection #Acute on Chronic anemia secondary to renal disease #CAD, #HTN, #COPD, breathing treatments. #HLD, #MDD, #Sacral decubitus ulcer, #chest pain # anxiety - CXR shows pulm vasc congestion ? Continue aspirin, atorvastatin, amiodarone, levothyroxine, magnesium, Metroprolol tartrate, midodrine ? DuoNeb every 6 hours as needed ? Continue methotrexate every 7 days, consider stopping ? Continue duloxetine ? COntinue Bumex today. ? Consult nephrology for dialysis ? Discussed with patient's and patient regarding CODE STATUS and further plan of care. Patient to remain full code. Patient okay with intubation and chest compressions if needed. -Sliding scale insulin for diabetes ? Continue Lantus at this time. ? Continue mod dose intensity SSI ? Recheck labs in a.m. recheck BMP, CBC, magnesium in AM. - Consult nephrology for dialysis - UA abnormal - tx for UTI - Place on vanc and zosyn empirically for now. - FU CX M - Continue on bipap and wean as able Full code DVT prophylaxis: Eliquis - Attestations 2 Medical Necessity Statement*: Myesha Parker requires ongoing inpatient care for rehab , respiratory failure managment Coding Level of Care Code 24962 Diagnoses Congestive heart failure (CHF) I50.9 Renal failure N19 Chronic atrial fibrillation I48.20 Chronic obstructive pulmonary disease, unspecified COPD type J44.9 COPD type: unspecified COPD Weakness R53.1 Physical deconditioning R53.81 Generalized weakness R53.1 Atrial fibrillation I48.91
[2024-01-13 16:34] LABS: Troponin T (5th) Once 59 ng/L (0-10)
[2024-01-13 16:44] LABS: Glucose Point of Care 132 mg/dL (70-110)
--- NOTE | 2024-01-13 20:44 | P.PN_ITS ---
Subjective 2 Subjective: no new c/o Medications: Reviewed: Yes Vitals/I&O/Wt Last Vital Signs Temp 97.9 F 01/13/24 19:42 Pulse 87 01/13/24 20:05 Resp 20 H 01/13/24 19:42 BP 125/74 01/13/24 19:42 Pulse Ox 97 01/13/24 20:05 O2 Del Method BiPAP 01/13/24 19:42 O2 Flow Rate 99 01/13/24 20:05 FiO2 35 01/13/24 20:05 01/13/24 01/13/24 01/13/24 06:59 14:59 22:59 Intake Total 530 / 530 590 / 1120 Output Total 600 / 3992 650 / 650 Balance -600 / -2818 530 / 530 -60 / 470 Weight last 48 hrs Weight 96.751 kg Weight 5.1 kg Weight 97.568 kg Physical Exam 2 Narrative: awake , alert , Urinary Catheter Management: Manzanares: Cath Placed During This Visit: yes Reason for Continuing Indwelling Catheter: Acute Urinary Retention or Obstruction Urinary Catheter Date of Insertion: 01/09/24 Urinary Catheter Time of Insertion: 11:17 Data 01/12/24 09:53 01/12/24 04:40 Micro: Microbiology 01/10/24 02:35 Gram Stain - Final Sputum - Expectorated Sputum Sputum Culture - Preliminary Methicillin Resis Staph Aureus Yeast species A&P Assessment and plan (1) End stage renal disease on dialysis: Plan 1. End-stage renal disease: On TTS schedule as outpatient,last HD sunday , Next HD sunday 2 g sodium restriction 1500 mill fluid restriction 2. History of CHF with recurrent volume overload, ultrafiltration as above 3. Anemia: He will order CARY with HD 4. History of A-fib 5. Coronary artery disease Patient evaluated using audiovisual cart. Time spent 20 minutes. Attestations 2 Medical Necessity Statement*: per nano Coding Level of Care Code Acute Code for Chg Fwd Diagnoses End stage renal disease on dialysis N18.6; Z99.2
[2024-01-13 21:00] LABS: Glucose Point of Care 143 mg/dL (70-110)
[2024-01-14] VITALS (12 sets, daily range): BP systolic 112–147; BP diastolic 64–82; PULSE 80–104; RESP 19–25; TEMP 36.4–36.6; O2SAT 95–100
[2024-01-14] MEDS: FUROsemide 10 mg/mL SDV 4mL 40 MG IVP ×2 (00:08→12:15)
[2024-01-14] MEDS: heparin 5,000 unit/mL INJ 1 mL 5000 UNIT SUBCUT ×2 (02:13→12:14)
[2024-01-14 06:28] LABS: Glucose Point of Care 110 mg/dL (70-110)
[2024-01-14] MEDS: amiodarone 200 mg Tablet PO (06:48)
[2024-01-14] MEDS: cholecalciferol (vitamin D3) 1,000 unit Tablet 1000 UNIT PO (06:48)
[2024-01-14] MEDS: duloxetine 60 mg Capsule PO (06:48)
[2024-01-14] MEDS: levothyroxine 150 mcg Tablet PO (06:48)
[2024-01-14] MEDS: meropenem 1,000 MG in sodium chloride 0.9% (plus) 50 ML 100 MG IV ×2 (06:54→18:24)
[2024-01-14] MEDS: pantoprazole 40 mg SDV IVP (08:36)
[2024-01-14] MEDS: folic acid 1 mg Tablet PO (08:37)
[2024-01-14] MEDS: magnesium lactate 84 mg Tablet PO (08:37)
[2024-01-14] MEDS: aspirin 81 mg EC Tablet PO (08:37)
[2024-01-14] MEDS: metoprolol tartrate 50 mg Tablet PO ×2 (08:37→18:24)
--- NOTE | 2024-01-14 08:38 | PICC.NOTE ---
Referred to vascular access nurse due to need for IV and poor access. 20 gauge peripheral IV started to right forearm using ultrasound x 1 stick. Good blood return noted and flushed without difficulty. Secured with venagaurd and coban. Pt tolerated well.
--- NOTE | 2024-01-14 09:05 | XRR_ITS ---
PROCEDURE INFORMATION: Exam: XR Chest Exam date and time: 01/14/2024 9:20 AM Age: 73 years old Clinical indication: Shortness of breath; Additional info: SOB TECHNIQUE: Imaging protocol: Radiologic exam of the chest. Views: 1 view. COMPARISON: CR XR chest 1V portable [id number] 01/09/2024 10:20 AM FINDINGS: Tubes, catheters and devices: Dialysis catheter enters from the right and terminates near the atrial caval junction. Lungs: Bibasilar atelectasis or infiltrate with bilateral pleural effusions unchanged. Pleural spaces: See Lungs finding. Heart/Mediastinum: See Vasculature finding. Vasculature: Mild cardiomegaly and uncoiling of the thoracic aorta. Bones/joints: Unremarkable. XR/XR chest 1V portable [id number] IMPRESSION: Persistent CHF/fluid overload.
[2024-01-14 11:40] LABS: Glucose Point of Care 156 mg/dL (70-110)
[2024-01-14] MEDS: insulin lispro 100 unit/1 mL SUBCUT ×2 (12:15→21:55)
--- NOTE | 2024-01-14 13:13 | P.PN_ITS ---
Subjective 2 Subjective: No acute events overnight. Feeling lethargic. Afebrile. Vitals/I&O/Wt Last Vital Signs Temp 97.9 F 01/14/24 11:47 Pulse 84 01/14/24 11:47 Resp 21 H 01/14/24 11:47 BP 112/74 01/14/24 11:47 Pulse Ox 100 01/14/24 11:47 O2 Del Method BiPAP 01/14/24 11:47 O2 Flow Rate 4 01/14/24 08:00 FiO2 35 01/14/24 07:56 01/13/24 01/14/24 01/14/24 22:59 06:59 14:59 Intake Total 590 / 1120 50 / 50 Output Total 650 / 650 950 / 1600 Balance -60 / 470 -950 / -480 50 / 50 Weight last 48 hrs Weight 212 lb 7 oz Weight 213 lb 4.8 oz Weight 11 lb 3.897 oz Physical Exam 2 Narrative: General: Cooperative patient in no apparent distress. HEENT: Normocephalic, Atraumatic. External ears normal. Nasal passages patent without drainage. MMM. Heart: Irregularly irregular rhythm. Resp: LCTA. No respiratory distress, no use of accessory muscles. Abd: Soft, non tender, no rebound or guarding. Non-distended. Extremities:trace edema. Urinary Catheter Management: Manzanares: Cath Placed During This Visit: yes Reason for Continuing Indwelling Catheter: Other Urinary Catheter Date of Insertion: 01/09/24 Urinary Catheter Time of Insertion: 11:17 Data 01/12/24 09:53 01/12/24 04:40 Micro: Microbiology 01/09/24 10:00 Blood Culture - Final Blood NO GROWTH AFTER 5 DAYS 01/09/24 10:05 Blood Culture - Final Blood NO GROWTH AFTER 5 DAYS 01/10/24 02:35 Gram Stain - Final Sputum - Expectorated Sputum Sputum Culture - Preliminary Methicillin Resis Staph Aureus Yeast species A&P Assessment and plan (1) Congestive heart failure (CHF): (2) Renal failure: (3) Chronic atrial fibrillation: (4) COPD (chronic obstructive pulmonary disease): Qualifiers: COPD type: unspecified COPD Qualified Code(s): J44.9 - Chronic obstructive pulmonary disease, unspecified (5) Weakness: (6) Physical deconditioning: (7) Generalized weakness: (8) Atrial fibrillation: Plan #UTI, bandemia #Acute on chronic congestive heart failure #End-stage renal disease on dialysis as an outpatient #Acute on Chronic hypoxic resp failure #Hx of multiple admissions #Immunocompromised, on adalimumab, methrotrexate outpatient, #A-fib with RVR #Hx of recent c.diff infection #Acute on Chronic anemia secondary to renal disease #CAD, #HTN, #COPD, breathing treatments. #HLD, #MDD, #Sacral decubitus ulcer, #chest pain # anxiety - CXR shows pulm vasc congestion ? Continue aspirin, atorvastatin, amiodarone, levothyroxine, magnesium, Metroprolol tartrate, midodrine ? DuoNeb every 6 hours as needed ? Continue duloxetine ? lasix ? Consult nephrology for dialysis ? Discussed with patient's and patient regarding CODE STATUS and further plan of care. Patient to remain full code. Patient okay with intubation and chest compressions if needed. -Sliding scale insulin for diabetes ? Continue Lantus at this time. ? Continue mod dose intensity SSI ? Recheck labs in a.m. recheck BMP, CBC, magnesium in AM. - Consult nephrology for dialysis - UA abnormal - tx for UTI - Place on vanc and zosyn empirically for now. - FU CX M - Continue on bipap and wean as able Full code DVT prophylaxis: Neil dispo: BLAKE de paz - Attestations 2 Medical Necessity Statement*: Myesha Parker requires ongoing inpatient care for abx Coding Level of Care Code 97654 Diagnoses Congestive heart failure (CHF) I50.9 Renal failure N19 Chronic atrial fibrillation I48.20 Chronic obstructive pulmonary disease, unspecified COPD type J44.9 COPD type: unspecified COPD Weakness R53.1 Physical deconditioning R53.81 Generalized weakness R53.1 Atrial fibrillation I48.91
--- NOTE | 2024-01-14 13:42 | PC.SOCIAL ---
IMM Update pg 2 of IMM updated and reviewed w/ patient. Copy provided and copy dated, initialed and placed in chart.
[2024-01-14 16:57] LABS: Glucose Point of Care 117 mg/dL (70-110)
--- NOTE | 2024-01-14 18:07 | P.PN_ITS ---
Subjective 2 Subjective: on isolation: MRSA in sputum, klebsiella, esbl in urine not examined today Vitals/I&O/Wt Last Vital Signs Temp 97.5 F L 01/14/24 17:33 Pulse 87 01/14/24 17:33 Resp 20 H 01/14/24 17:33 BP 112/64 01/14/24 17:33 Pulse Ox 100 01/14/24 17:33 O2 Del Method BiPAP 01/14/24 17:33 O2 Flow Rate 4 01/14/24 08:00 FiO2 35 01/14/24 07:56 01/14/24 01/14/24 01/14/24 06:59 14:59 22:59 Intake Total 290 / 290 Output Total 950 / 1600 Balance -950 / -480 290 / 290 Weight last 48 hrs Weight 96.36 kg Weight 96.751 kg Weight 5.1 kg Physical Exam 2 Urinary Catheter Management: Manzanares: Cath Placed During This Visit: yes Reason for Continuing Indwelling Catheter: Other Urinary Catheter Date of Insertion: 01/09/24 Urinary Catheter Time of Insertion: 11:17 Data 01/12/24 09:53 01/12/24 04:40 Micro: Microbiology 01/10/24 02:35 Gram Stain - Final Sputum - Expectorated Sputum Sputum Culture - Final Methicillin Resis Staph Aureus Amber albicans 01/09/24 10:00 Blood Culture - Final Blood NO GROWTH AFTER 5 DAYS 01/09/24 10:05 Blood Culture - Final Blood NO GROWTH AFTER 5 DAYS A&P Assessment and plan (1) End stage renal disease on dialysis: Plan 1. End-stage renal disease: On TTS hemodialysis schedule. 2. History of CHF with recurrent volume overload, ultrafiltration 3. Anemia: will order [facility]ARY with HD 4. History of A-fib 5. Coronary artery disease 2g sodium restriction 1500 mill fluid restriction, check vanco level Attestations 2 Medical Necessity Statement*: per primary serviice Time Spent in Patient Care: less than 15 minutes Coding Level of Care Code Acute Code for Chg Fwd Diagnoses End stage renal disease on dialysis N18.6; Z99.2
[2024-01-14 20:55] LABS: Glucose Point of Care 141 mg/dL (70-110)
[2024-01-15] VITALS: BP 114/66; PULSE 92; RESP 20; TEMP 36.4; O2SAT 95
[2024-01-15] MEDS: FUROsemide 10 mg/mL SDV 4mL 40 MG IVP ×2 (00:10→11:21)
[2024-01-15 00:53] LABS: Basophils # 0.1 10^3/uL (0.0-0.1); Basophils % 1.2 %; Eosinophils # 0.2 10^3/uL (0.0-0.8); Eosinophils % 1.8 %; Hematocrit 31.2 % (36-47); Lymphocytes # 0.9 10^3/uL (0.8-4.8); Lymphocytes % 11.2 %; Mean Corpuscular HGB Conc 30.8 g/dL (30-55); Mean Corpuscular Hemoglobin 30.2 pg (27-33); Mean Corpuscular Volume 98.1 fl (85-98); Mean Platelet Volume 8.9 fL (7.4-10.4); Monocytes # 1.1 10^3/uL (0.2-0.9); Monocytes % 12.6 %; Neutrophils # 5.75 10^3/uL (1.8-7.7); Neutrophils % 68.2 %; Nucleated Red Blood Cells % 0 %; Platelet Count 290 10^3/cmm (157-399); Red Blood Count 3.18 10^6/uL (3.85-5.65); Red Cell Distribution Width 22.5 % (12.1-15.1); White Blood Count 8.42 10^3/uL (3.29-11.43)
[2024-01-15 01:12] LABS: Alanine Aminotransferase 13 U/L (0-33); Albumin Level 3.1 g/dL (3.5-5.2); Alkaline Phosphatase 142 U/L (35-105); Aspartate Amino Transferase 15 U/L (0-32); Blood Urea Nitrogen 63 mg/dL (8-23); Calcium 9.3 mg/dL (8.5-10.5); Carbon Dioxide 28 mmol/L (22-29); Chloride 98 mmol/L (98-107); Globulin 2.7 g/dL (1.3-4.6); Glucose 100 mg/dL (65-115); Osmolality Calculated 304 mOsm/kg (285-295); Sodium 138 mmol/L (136-145); Total Bilirubin 0.4 mg/dL (0.15-1.2); Total Protein 5.8 g/dL (6.6-8.7)
[2024-01-15 01:15] LABS: Creatinine Clr Calc Pharmacy 23.2587
[2024-01-15 01:20] LABS: Vancomycin Trough 30.3 ug/mL (10-15)
[2024-01-15] MEDS: heparin 5,000 unit/mL INJ 1 mL 5000 UNIT SUBCUT (02:03)
[2024-01-15 02:44] LABS: Glucose Point of Care 99 mg/dL (70-110)
[2024-01-15 04:00] VITALS: BP 118/75; PULSE 83; PULSE 94; RESP 21; TEMP 36.7; O2SAT 100; O2SAT 96
[2024-01-15 06:00] VITALS: PULSE 86
[2024-01-15] MEDS: meropenem 1,000 MG in sodium chloride 0.9% (plus) 50 ML 100 MG IV (06:25)
[2024-01-15] MEDS: amiodarone 200 mg Tablet PO (06:25)
[2024-01-15] MEDS: duloxetine 60 mg Capsule PO (06:26)
[2024-01-15] MEDS: cholecalciferol (vitamin D3) 1,000 unit Tablet 1000 UNIT PO (06:26)
[2024-01-15] MEDS: levothyroxine 150 mcg Tablet PO (06:26)
[2024-01-15 06:31] LABS: Glucose Point of Care 104 mg/dL (70-110)
[2024-01-15 08:00] VITALS: BP 119/74; PULSE 82; RESP 18; TEMP 36.6; O2SAT 98
[2024-01-15] MEDS: aspirin 81 mg EC Tablet PO (08:04)
[2024-01-15] MEDS: magnesium lactate 84 mg Tablet PO (08:04)
[2024-01-15] MEDS: folic acid 1 mg Tablet PO (08:04)
[2024-01-15] MEDS: pantoprazole 40 mg SDV IVP (08:05)
[2024-01-15] MEDS: ondansetron 2 mg/ML SDV 2 mL 4 MG IVP (08:05)
[2024-01-15] MEDS: metoprolol tartrate 50 mg Tablet PO ×2 (08:05→17:20)
[2024-01-15 08:31] VITALS: PULSE 82; RESP 16; O2SAT 97
--- NOTE | 2024-01-15 09:16 | XRR_ITS ---
PROCEDURE INFORMATION: Exam: XR Chest Exam date and time: 01/15/2024 9:33 AM Age: 73 years old Clinical indication: Shortness of breath; Additional info: Followup congestion TECHNIQUE: Imaging protocol: Radiologic exam of the chest. Views: 1 view. COMPARISON: CR XR chest 1V portable [id number] 01/14/2024 9:20 AM FINDINGS: Tubes, catheters and devices: Stable dialysis catheter. Lungs: Stable vascular engorgement, interstitial and alveolar edema, bilateral pleural effusions, and cardiomegaly. Pleural spaces: See Lungs finding. Heart/Mediastinum: See Lungs finding. Bones/joints: Unremarkable. XR/XR chest 1V portable [id number] IMPRESSION: Stable CHF/fluid overload.
[2024-01-15] MEDS: midodrine 5 mg TABLET 10 MG PO (09:45)
[2024-01-15 09:53] LABS: NT Pro B Type Natriuretic Pept 19986 pg/mL (0-450)
[2024-01-15 11:14] LABS: Glucose Point of Care 141 mg/dL (70-110)
[2024-01-15 11:40] LABS: SARS Covid-2 Antigen negative (Negative)
[2024-01-15] MEDS: heparin, porcine 1,000 unit/mL INJ 10 mL 1000 UNIT IV (12:00)
[2024-01-15] MEDS: heparin, porcine 1,000 unit/mL INJ 10 mL 10000 UNIT INTRACATH (12:01)
[2024-01-15] MEDS: epoetin alfa (ESRD) 5,000 UNIT in SYRINGE 1 EACH 60 UNIT IVP (12:13)
--- NOTE | 2024-01-15 14:53 | P.DS_ITS ---
Discharge Providers Date of Admission: 01/09/24 12:29 Date of Discharge: January 15, 2024 Attending Provider at Admission: Adriane Terry MD Attending Provider at Discharge: Suze Tinsley MD Consults: Nephrology Primary Care Provider: Davion Griggs MD Diagnoses at Discharge Discharge Diagnosis (1) End stage renal disease on dialysis: Status: Acute Reason for Visit Reason for Visit: Resp Distress Hospital Course Hospital Course H&P Myesha Parker is a 73 year old female with history of congestive heart failure, renal failure, CAD, HTN, COPD, HLD, MDD, sacral decubitus ulcer, hypotension, poor peripheral access, other medical problems discharged from the hospital on 10/20 after recent hospitalization for treatment of fluid overload, atrial fibrillation with RVR, NSTEMI, intubation and successfully extubated during her stay. Patient was restarted on her dialysis through hospitalization. She was recently discharged from the hospital after being diagnosed with C. difficile. Date of discharge was December 19. Patient again presents to the hospital today for complaint of shortness of breath. Her is at bedside who states that she was fine up until yesterday however this morning she experienced shortness of breath and therefore sent to the hospital. Patient stated in the room ICU 12. Resting comfortably in bed. Currently on BiPAP. States she has been havin g some chest pain in the middle of her chest. The chest pain is completely reproducible to palpation. She said it also hurts when she breathes. Upon palpating the area she says the pain returns. Denies any other complaints at this time. Does states she is weak. Did not miss any dialysis sessions lately.At the [facility] her saturations were in the 80%. Denies nausea vomiting diarrhea, abdominal pain. Hospital course: There was concern for fluid overload. Nephrology was consulted. Sputum and urine cultures were sent. Noted to have abnormal cultures. Antibiotics were adjusted. Diuretics were adjusted. Patient did receive blood in the ER. Chronic conditions are manage including diabetes as well as her decubitus ulcer. At time of discharge we did recommend her to continue to hold her methotrexate while on antibiotics. We did discharge her on antifungal and antibiotics. Recommend her to resume her dialysis on her regular schedule. Follow-up with her primary care and her consultants. Physical Exam Narrative: General: Cooperative patient in no apparent distress. HEENT: Normocephalic, Atraumatic. External ears normal. Nasal passages patent without drainage. MMM. Heart: rate regular. Resp: LCTA. No respiratory distress, no use of accessory muscles. Abd: Soft, non tender, no rebound or guarding. Non-distended. Extremities:trace edema. Urinary Catheter Management: Manzanares: Cath Placed During This Visit: yes Reason for Continuing Indwelling Catheter: Other Urinary Catheter Date of Insertion: 01/09/24 Urinary Catheter Time of Insertion: 11:17 Discharge Data Studies Completed and Pending Completed Studies During Hospitalization Category Date Time Status CT chest abdomen pelvis [[place] [id number] Cat Scan 01/10/24 13:24 Completed ] Stat CXRP [XR chest 1V portable [id number]] Routine Exams 01/14/24 09:05 Completed CXRP [XR chest 1V portable [id number]] Routine Exams 01/15/24 09:16 Completed XR chest 1V portable [id number] Stat Exams 01/09/24 09:52 Completed Radiology Impressions Chest/Abdomen/Pelvis CT 01/10/24 13:24 IMPRESSION: 1. Small RIGHT greater than LEFT pleural effusions with compressive atelectasis in the lung bases. 2. Interstitial edema in both lungs. Recommend correlation for CHF. 3. Slight hazy groundglass opacities throughout both lungs. Recommend correlation for pneumonia. This can also be seen with CHF. 4. Cirrhotic integration to the liver. 5. Diffuse body wall anasarca. 6. Manzanares catheter. 7. No evidence of fluid collection or abscess in the abdomen or pelvis. 8. Prior cholecystectomy. Chest X-Ray 01/15/24 09:16 IMPRESSION: Stable CHF/fluid overload. Laboratory Results WBC 8.42 10^3/uL (3.29-11.43) 01/15/24 00:44 RBC 3.18 10^6/uL (3.85-5.65) L 01/15/24 00:44 Hgb 9.60 g/dL (11.27-16.99) L 01/15/24 00:44 Hct 31.2 % (36-47) L 01/15/24 00:44 MCV 98.1 fl (85-98) H 01/15/24 00:44 MCH 30.2 pg (27-33) 01/15/24 00:44 MCHC 30.8 g/dL (30-55) 01/15/24 00:44 RDW 22.5 % (12.1-15.1) H 01/15/24 00:44 Plt Count 290 10^3/cmm (157-399) 01/15/24 00:44 MPV 8.9 fL (7.4-10.4) 01/15/24 00:44 Neut % (Auto) 68.2 % 01/15/24 00:44 Lymph % (Auto) 11.2 % 01/15/24 00:44 [place] % (Auto) 12.6 % 01/15/24 00:44 Eos % (Auto) 1.8 % 01/15/24 00:44 Baso % (Auto) 1.2 % 01/15/24 00:44 Neut # (Auto) 5.75 10^3/uL (1.8-7.7) 01/15/24 00:44 Lymph # (Auto) 0.9 10^3/uL (0.8-4.8) 01/15/24 00:44 [place] # (Auto) 1.1 10^3/uL (0.2-0.9) H 01/15/24 00:44 Eos # (Auto) 0.2 10^3/uL (0.0-0.8) 01/15/24 00:44 Baso # (Auto) 0.1 10^3/uL (0.0-0.1) 01/15/24 00:44 Nucleated RBC % (auto) 0 % 01/15/24 00:44 Total Counted 100 (0-100) 01/10/24 04:07 Atypical Lymphs % Not Reportable 01/10/24 04:07 Absolute Neutrophils 6.8 10^3/cmm (1.4-6.5) H 01/10/24 04:07 Segmented Neutrophils 50 % 01/10/24 04:07 Abs Segm Neuts (Man) 4.6 10/cmm (1.6-7.1) 01/10/24 04:07 Band Neutrophils 23.0 % 01/10/24 04:07 Abs Band Neuts (Man) 2.1 10^3/cmm (0.0-1.2) H 01/10/24 04:07 Absolute Lymphocytes 1.3 10^3/cmm (1.2-3.4) 01/09/24 09:55 Lymphocytes (Manual) 11 % 01/10/24 04:07 Monocytes (Manual) 10.0 % 01/10/24 04:07 Absolute Monocytes 0.9 10^3/cmm (0.1-0.6) H 01/10/24 04:07 Eosinophils (Manual) 0 % 01/10/24 04:07 Absolute Eosinophils 0.0 10^3/cmm (0.0-0.7) 01/10/24 04:07 Basophils (Manual) 1.0 % 01/10/24 04:07 Absolute Basophils 0.1 10^3/cmm (0.0-0.2) 01/10/24 04:07 Metamyelocytes 2.0 % 01/09/24 09:55 Myelocytes 5.0 % 01/10/24 04:07 Promyelocytes 2.0 % 01/09/24 09:55 Nucleated RBCs # 0.0 /100WBC 01/15/24 00:44 Platelet Estimate Normal (Normal) 01/10/24 04:07 Giant Platelets Trace 01/09/24 09:55 Polychromasia Trace 01/09/24 09:55 Hypochromasia 3+ H 01/10/24 04:07 Anisocytosis 3+ H 01/10/24 04:07 Microcytosis Trace 01/10/24 04:07 Macrocytosis 1+ H 01/10/24 04:07 Target Cells 1+ H 01/10/24 04:07 Specimen Type Arterial 01/09/24 12:28 Sample Site Radial, left 01/09/24 12:28 ABG pH 7.35 (7.35-7.45) 01/09/24 12:28 ABG pCO2 55.4 mmHg (35-45) H 01/09/24 12:28 ABG pO2 60.4 mmHg (80.0-100.0) L 01/09/24 12:28 ABG PO2/FiO2 Ratio 0 01/09/24 12:28 ABG HCO3 30.6 mmol/L (22-26) H 01/09/24 12:28 ABG O2 Saturation 89.9 01/09/24 12:28 ABG Base Excess 4.3 mmol/L (-2.0-2.0) H 01/09/24 12:28 Memo Test Pos 01/09/24 12:28 A-a O2 Gradient 24.9 mmHg (5-10) H 01/09/24 12:28 Hematocrit 22.7 % (37-47) L 01/09/24 12:28 Hgb O2 Saturation 86.9 % (95-100) L 01/09/24 12:28 Carboxyhemoglobin 1.7 %THgb (0.4-20.1) 01/09/24 12:28 Methemoglobin 1.7 % (0.4-1.5) H 01/09/24 12:28 Total Hemoglobin 7.4 g/dL (12-16) L 01/09/24 12:28 Sodium 138.0 mmol/L (131-143) 01/09/24 12:28 Potassium 3.8 mmol/L (3.5-5.0) 01/09/24 12:28 Glucose 148.0 mg/dL (70-115) H 01/09/24 12:28 Ionized Calcium 1.2 mmol/L (1.1-1.4) 01/09/24 12:28 O2 Delivery Device Bipap 01/09/24 12:28 FiO2 45.0 % 01/09/24 12:28 Cognos Bi Developer ID [place] 01/09/24 12:28 Sodium 138 mmol/L (136-145) 01/15/24 00:44 Potassium 4.0 mmol/L (3.5-5.1) 01/15/24 00:44 Chloride 98 mmol/L (98-107) 01/15/24 00:44 Carbon Dioxide 28 mmol/L (22-29) 01/15/24 00:44 Anion Gap 16.0 (5-19) 01/15/24 00:44 BUN 63 mg/dL (8-23) H 01/15/24 00:44 Creatinine 2.4 mg/dL (0.5-0.9) H 01/15/24 00:44 GFR Calculation Not Reportable 01/15/24 00:44 Glucose 100 mg/dL (65-115) 01/15/24 00:44 POC Glucose 141 mg/dL (70-110) H 01/15/24 11:05 Calculated Osmolality 304 mOsm/kg (285-295) H 01/15/24 00:44 Lactic Acid 2.9 mmol/L (0.5-2.2) H 01/09/24 09:55 Lactic Acid (Sepsis) 1.9 mmol/L (0.5-2.2) 01/09/24 13:40 Calcium 9.3 mg/dL (8.5-10.5) 01/15/24 00:44 Magnesium 1.7 mg/dL (1.7-2.3) 01/10/24 04:07 Iron 49 ug/dL (37-145) 01/10/24 04:07 TIBC 157 mcg/dl 01/10/24 04:07 % Saturation 31.2 % (20-50) 01/10/24 04:07 Unsat Iron Binding 108 ug/dL (112-347) L 01/10/24 04:07 Ferritin 598 ng/mL (15-150) H 01/10/24 04:07 Total Bilirubin 0.4 mg/dL (0.15-1.2) 01/15/24 00:44 AST 15 U/L (0-32) 01/15/24 00:44 ALT 13 U/L (0-33) 01/15/24 00:44 Alkaline Phosphatase 142 U/L (35-105) H 01/15/24 00:44 Creatine Kinase 36 U/L (26-192) 01/09/24 09:55 Troponin T 5th Gen ng/L 59 ng/L (0-10) H 01/13/24 16:02 Troponin T Baseline 53 ng/L (0-10) H 01/09/24 09:55 Troponin T 120 Minute 48.73 ng/L (0-10) H 01/09/24 11:32 Delta Troponin T -4.27 ABS# (0-10) L 01/09/24 11:32 Troponin T Hi Sens 6Hr 53.88 ng/L (0-10) H 01/09/24 17:06 Troponin T Hi Sens 6Hr Delta 0.88 ng/L (0-12) 01/09/24 17:06 NT-Pro-B Natriuret Pep 75158 pg/mL (0-450) H 01/15/24 00:44 Total Protein 5.8 g/dL (6.6-8.7) L 01/15/24 00:44 Albumin 3.1 g/dL (3.5-5.2) L 01/15/24 00:44 Globulin 2.7 g/dL (1.3-4.6) 01/15/24 00:44 Urine Color Yellow (Yellow) 01/09/24 11:15 Urine Appearance Cloudy (CLEAR) A 01/09/24 11:15 Urine pH 5 (5-7) 01/09/24 11:15 Ur Specific [place] 1.020 (1.005-1.030) 01/09/24 11:15 Urine Protein 3+ (Negative) H 01/09/24 11:15 Urine Glucose (UA) Norm (Normal) 01/09/24 11:15 Urine Ketones 1+ (Negative) H 01/09/24 11:15 Urine Blood 2+ (Negative) H 01/09/24 11:15 Urine Nitrate Positive (Negative) H 01/09/24 11:15 Urine Bilirubin 2+ (Negative) H 01/09/24 11:15 Urine Urobilinogen Norm mg/dL (Negative) 01/09/24 11:15 Ur Leukocyte Esterase 2+ (Negative) H 01/09/24 11:15 Urine RBC 5-10 /hpf (0-2) H 01/09/24 11:15 Urine WBC >100 /hpf (0-5) H 01/09/24 11:15 Ur Squamous Epith Cells 10-15 /hpf (0-5) H 01/09/24 11:15 Ur Transition Epith Cell 0-4 /hpf 01/09/24 11:15 Amorphous Sediment Not Reportable 01/09/24 11:15 Urine Bacteria 2+ /hpf (NONE) H 01/09/24 11:15 Urine Mucus 1+ /hpf 01/09/24 11:15 Vancomycin Trough 30.3 ug/mL (10-15) H* 01/15/24 00:44 Hep Bs Antigen Non-reactive (Nonreactive) 01/09/24 17:06 Hep Bs Antibody < 3.5 (11.5-1000) L 01/09/24 17:06 SARS-CoV-2 Ag (Rapid) negative (Negative) 01/15/24 10:45 Blood Type O Positive 01/09/24 11:32 Rho(D) Type Rh positive 01/09/24 11:32 Antibody Screen Negative 01/09/24 11:32 Crossmatch See Detail 01/09/24 11:32 Vitals Last Vital Signs Temp 97.8 F 01/15/24 08:00 Pulse 82 01/15/24 08:31 Resp 16 01/15/24 08:31 BP 119/74 01/15/24 08:00 Pulse Ox 97 01/15/24 08:31 O2 Del Method Nasal Cannula 01/15/24 08:31 O2 Flow Rate 4 01/15/24 08:31 FiO2 35 01/15/24 04:00 Discharge Plan Discharge Patient Disposition: Xfer SNF Condition: Stable Prescriptions: New fluconazole [Diflucan] 200 mg tablet 200 mg PO DAILY Qty: 7 0RF doxycycline monohydrate 100 mg capsule 100 mg PO BID Qty: 10 0RF levofloxacin 250 mg tablet See Rx Instructions .ROUTE .COMPLEX Qty: 5 0RF Rx Instructions: 500mg po qday x 1, then 250 mg orally q 48 hours Continued nitroglycerin [Nitrostat] 0.4 mg tablet, sublingual 0.4 mg SUBLINGUAL Q5M PRN (Reason: Chest Pain) Qty: 30 3RF Rx Instructions: MAX 3 DOSES PER EPISODE levothyroxine [Euthyrox] 150 mcg tablet 150 mcg PO DAILY@06 calcium carbonate [Calcium 600] 600 mg calcium (1,500 mg) tablet 600 mg PO DAILY@07 melatonin 1 mg tablet 1 mg PO BEDTIME midodrine 10 mg tablet 10 mg PO TID PRN (Reason: SBP less than 115 mmhg) Qty: 90 0RF hydrocodone-acetaminophen 5-325 mg tablet 1 tab PO TID PRN (Reason: Pain) cholecalciferol (vitamin D3) [Vitamin D3] 25 mcg (1,000 unit) Tablet 1,000 unit PO DAILY@07 pantoprazole 40 mg tablet,delayed release (DR/EC) 40 mg PO BID glucose 4 gram tablet,chewable 4 g PO PRN PRN (Reason: Hypoglycemia) Trelegy Ellipta 200-62.5-25 mcg blister with device 1 inh INHALATION DAILY Qty: 28 0RF duloxetine 60 mg capsule,delayed release(DR/EC) 60 mg PO DAILY@07 insulin lispro [Humalog U-100 Insulin] 100 unit/mL Solution See Rx Instructions .ROUTE .COMPLEX MDD 40 Qty: 10 0RF Rx Instructions: per sliding scale with meals 150-200=2 units 201-250=4 units 251-300=6 units 301-350=8 units 351-400=10 units 401-450=12 units metolazone 2.5 mg Tablet See Rx Instructions .ROUTE .COMPLEX Rx Instructions: 2.5 mg orally twice weekly ON SUNDAY AND SUNDAY acetaminophen 325 mg Tablet 650 mg PO Q6H PRN (Reason: PAIN OR INCREASED TEMP) amiodarone 200 mg tablet 200 mg PO DAILY@07 meclizine 25 mg tablet 25 mg PO TID PRN (Reason: Nausea And Vomiting) bisacodyl [Dulcolax (bisacodyl)] 10 mg Suppository 10 mg RI DAILY PRN (Reason: if no bm x3 days ) nystatin [Nyamyc] 100,000 unit/gram powder See Rx Instructions .ROUTE .COMPLEX Rx Instructions: as directed every shift as needed (apply between thighs and affected areas twice a day as needed) pyridoxine (vitamin B6) [Vitamin B-6] 250 mg Tablet 500 mg PO DAILY@08 magnesium L-lactate 84 mg tablet extended release 84 mg PO DAILY@08 aspirin 81 mg Tablet,Delayed Release (Dr/Ec) 81 mg PO DAILY Qty: 30 0RF lidocaine 5 % Adhesive Patch,Medicated 1 patch TOPICAL BID Rx Instructions: leave on most painful area IN AM for up to 12 hrs folic acid 1 mg tablet 1 mg PO DAILY melatonin 1 mg tablet 1 mg PO BEDTIME MediHoney (honey) 80 % gel See Rx Instructions .ROUTE .COMPLEX Rx Instructions: APPLY TOPICALLY TO LEFT SACRUM: CLEANSE WITH NS AND GAUZE, APPLY MEDI-HONEY TO WOUND BED AND COVER WITH BORDERED SILICONE DRESSING EVERY OTHER DAY AND NEEDED. bumetanide 2 mg tablet See Rx Instructions .ROUTE .COMPLEX Rx Instructions: TAKE 2 MG BY MOUTH TWICE DAILY ON SUNDAY, SUNDAY, SUNDAY, AND SUNDAY. metoprolol tartrate 50 mg tablet 50 mg PO BID insulin glargine [Lantus Solostar U-100 Insulin] 100 unit/mL (3 mL) insulin pen 12 unit SUBCUT BEDTIME Held methotrexate sodium 2.5 mg Tablet 6 mg PO Q7D Hold Instructions: Resume on 01/29/24. Rx Instructions: ON SUNDAY Discharge Orders: Discharge Order (Routine); Ordered 01/15/24 Ordered By: Suze Tinsley Referrals: [facility] [Outside] Davion Griggs MD [Primary Care Provider] - Discharge Diet: Cardiac Discharge Activity: Resume usual activity Patient Instructions: Dialysis Diet (DC), Hemodialysis (DC), Opioid Safety Discharge Attestations Time Spent in Discharge Care*: greater than 30 min Status at Discharge: Cognitive status at discharge: cognitively intact , Behavioral status at discharge: cooperative , Quality Metrics Clinical Quality Measures [ No reported AMI, CVA or VTE this stay] Coding Level of Care Code Acute Code for Chg Fwd Diagnoses End stage renal disease on dialysis N18.6; Z99.2
--- NOTE | 2024-01-15 15:40 | PC.NURSE ---
report called to Bridgette at [facility]
[2024-01-15 16:05] VITALS: BP 109/72; BP 126/77; PULSE 84; PULSE 93; RESP 20; TEMP 36.1
--- NOTE | 2024-01-15 16:57 | P.PN_ITS ---
Subjective 2 Subjective: uneventful HD today; removed 2600 ml Vitals/I&O/Wt Last Vital Signs Temp 97.0 F L 01/15/24 16:05 Pulse 84 01/15/24 16:05 Resp 20 H 01/15/24 16:05 BP 109/72 01/15/24 16:05 Pulse Ox 97 01/15/24 08:31 O2 Del Method Nasal Cannula 01/15/24 08:31 O2 Flow Rate 4 01/15/24 08:31 FiO2 35 01/15/24 04:00 01/15/24 01/15/24 01/15/24 06:59 14:59 22:59 Intake Total 530.25 / 530.25 500 / 1030.25 Output Total 1000 / 1000 3130 / 3130 Balance -1000 / -180 530.25 / 530.25 -2630 / -2099.75 Weight last 48 hrs Weight 94.5 kg Weight 99.11 kg Weight 96.36 kg Physical Exam 2 Urinary Catheter Management: Manzanares: Cath Placed During This Visit: yes Reason for Continuing Indwelling Catheter: Other Urinary Catheter Date of Insertion: 01/09/24 Urinary Catheter Time of Insertion: 11:17 Data 01/15/24 00:44 01/15/24 00:44 Micro: Microbiology 01/10/24 02:35 Gram Stain - Final Sputum - Expectorated Sputum Sputum Culture - Final Methicillin Resis Staph Aureus Amber albicans Other data: seen via telemedicine with assitance of RN at bedside A&P Assessment and plan (1) End stage renal disease on dialysis: Plan 1. End-stage renal disease: On TTS hemodialysis schedule. 2. History of CHF with recurrent volume overload, ultrafiltration 3. Anemia: will order [facility] with HD 4. History of A-fib 5. Coronary artery disease being discharged back to [facility]TC today Attestations 2 Medical Necessity Statement*: per primary service Coding Level of Care Code Acute Code for Chg Fwd Diagnoses End stage renal disease on dialysis N18.6; Z99.2 Time Spent (min) 10
[2024-01-15 17:01] LABS: Glucose Point of Care 180 mg/dL (70-110)
[2024-01-15] MEDS: insulin lispro 100 unit/1 mL SUBCUT (17:20)
== END 2024-01-15 17:40 | disposition skilled nursing facility (03) | DRG 291 ==
LOC: ER 10:01 → ICU 12:30 → MEDSURG 01-11 18:14
PROVIDERS: Hospitalist; Admitting Provider Internal Medicine; Emergency Provider Family Medicine; PCP Family Medicine; Visit Provider Internal Medicine
DX: I13.2 Hypertensive heart and chronic kidney disease with heart failure and with stage 5 chronic kidney disease, or end stage renal disease (principal); J96.21 Acute and chronic respiratory failure with hypoxia; N18.6 End stage renal disease; J96.22 Acute and chronic respiratory failure with hypercapnia; I48.20 Chronic atrial fibrillation, unspecified; D84.9 Immunodeficiency, unspecified; N39.0 Urinary tract infection, site not specified; E11.22 Type 2 diabetes mellitus with diabetic chronic kidney disease; I50.9 Heart failure, unspecified; Z99.2 Dependence on renal dialysis; Z87.891 Personal history of nicotine dependence; I25.10 Atherosclerotic heart disease of native coronary artery without angina pectoris; J44.9 Chronic obstructive pulmonary disease, unspecified; Z99.81 Dependence on supplemental oxygen; F32.9 Major depressive disorder, single episode, unspecified; Z86.16 Personal history of COVID-19; M06.042 Rheumatoid arthritis without rheumatoid factor, left hand; M06.041 Rheumatoid arthritis without rheumatoid factor, right hand; L89.152 Pressure ulcer of sacral region, stage 2; M17.0 Bilateral primary osteoarthritis of knee; M79.7 Fibromyalgia; F41.9 Anxiety disorder, unspecified; E03.9 Hypothyroidism, unspecified; K74.60 Unspecified cirrhosis of liver; E78.5 Hyperlipidemia, unspecified; D63.1 Anemia in chronic kidney disease; I25.2 Old myocardial infarction
CPT/HCPCS: 36415; 36416; 36430; 36600; 51702; 71045; 71250; 74176; 80051; 80053; 80202; 81001; 82274; 82330; 82550; 82728; 82805; 82962; 83540; 83550; 83605; 83735; 83880; 84484; 85007; 85025; 86706; 86850; 86900; 86920; 87040; 87070; 87077; 87086; 87106; 87186; 87205; 87340; 87426; 90935; 93005; 94640; 94660; 96365; 96367; 96372; 96375; 96376; 99285; 99291; C9113; J1644; J1815; J1940; J2185; J2405; J2543; J3370; J7050; P9016; P9040; P9047; Q3014; Q4081

== ENCOUNTER 2024-02-15 10:33 | Emergency (ER) | payer MEDICARE, MEDICAID, SELFPAY ==
[2024-02-15] VITALS (70 sets, daily range): BP systolic 91–155; BP diastolic 62–102; PULSE 73–113; RESP 16–33; TEMP 36.7; O2SAT 86–100; BMI 31.2
--- NOTE | 2024-02-15 10:35 | XR_ITS ---
WS: [id number] Exam: XR chest 1V portable [id number] Date/Time of Exam: 02/15/2024 10:36 AM Reason For Exam: dyspnea/cough Comparison 01/15/2024. There is cardiac enlargement with pulmonary vascular congestion suggesting chronic CHF. Moderate-size d RIGHT basal pleural effusion. Small LEFT basal pleural effusion. Right-sided double lumen central l ine noted ending at the cavoatrial junction. No pneumothorax. Bony structures are intact. XR/XR chest 1V portable [id number] IMPRESSION: 1. Congestive heart failure pattern with cardiac enlargement and bilateral pleu ral effusions. Very little change since the last study.
--- NOTE | 2024-02-15 10:35 | ECG_ITS ---
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 Measurements Intervals [place] Rate: 85 P: 0 UT: 0 QRS: -87 QRSD: 177 T: 79 QT: 441 QTc: 525 Interpretive Statements ATRIAL fibrillation RIGHT BUNDLE BRANCH BLOCK [120+ ms QRS DURATION, UPRIGHT V1, 40+ ms S IN I/aVL/V4/V5/V6] LEFT ANTERIOR FASCICULAR BLOCK [QRS AXIS <= -45, QR IN I, RS IN II] POSSIBLE ANTERIOR MYOCARDIAL INFARCTION , PROBABLY OLD [30 ms Q WAVE IN V3/V4, OR R < 0.2 mV IN V4] Compared to ECG 01/13/2024 13:56:05 Myocardial infarct finding still present Electronically Signed On 02-15-2024 13:43:50 CDT by Min Tipton M.D. [id number]
[2024-02-15 11:14] LABS: Basophils % 0.8 %; Eosinophils # 0.1 10^3/uL (0.0-0.8); Eosinophils % 2.7 %; Hematocrit 33.5 % (36-47); Lymphocytes # 0.4 10^3/uL (0.8-4.8); Lymphocytes % 8.3 %; Mean Corpuscular HGB Conc 30.7 g/dL (30-55); Mean Corpuscular Hemoglobin 31.7 pg (27-33); Mean Corpuscular Volume 103.1 fl (85-98); Mean Platelet Volume 8.9 fL (7.4-10.4); Monocytes # 0.1 10^3/uL (0.2-0.9); Monocytes % 1.5 %; Neutrophils # 4.47 10^3/uL (1.8-7.7); Neutrophils % 86.3 %; Nucleated Red Blood Cells % 0 %; Platelet Count 163 10^3/cmm (157-399); Red Blood Count 3.25 10^6/uL (3.85-5.65); Red Cell Distribution Width 17.5 % (12.1-15.1); White Blood Count 5.18 10^3/uL (3.29-11.43)
[2024-02-15 11:30] LABS: Alanine Aminotransferase 51 U/L (0-33); Alkaline Phosphatase 228 U/L (35-105); Blood Urea Nitrogen 40 mg/dL (8-23); Calcium 9.5 mg/dL (8.5-10.5); Carbon Dioxide 32 mmol/L (22-29); Chloride 95 mmol/L (98-107); Globulin 4.2 g/dL (1.3-4.6); Glucose 142 mg/dL (65-115); Osmolality Calculated 296 mOsm/kg (285-295); Sodium 137 mmol/L (136-145); Total Bilirubin 0.5 mg/dL (0.15-1.2); Total Protein 7.2 g/dL (6.6-8.7)
[2024-02-15 11:32] LABS: Creatinine Clr Calc Pharmacy 34.9456
[2024-02-15 11:34] LABS: Anion Gap 14.4 (5-19); Aspartate Amino Transferase 69 U/L (0-32); Potassium 4.4 mmol/L (3.5-5.1)
[2024-02-15 11:44] LABS: Troponin(5th) Baseline 60 ng/L (0-10)
--- NOTE | 2024-02-15 12:16 | W.ED.SOB ---
HPI - SOB/Dyspnea General: Chief Complaint: Shortness of Breath/Dyspnea Stated Complaint: sob Time Seen by Provider: 02/15/24 10:35 Source: patient Mode of arrival: ambulatory History of Present Illness: HPI Narrative: 73-year-old female presents to the emergency room she has a history of congestive heart failure as well as end-stage renal disease. She did not complete her full course of dialysis yesterday because she has a sore on her sacrum and wanted to quit. She was on dialysis for approximately not 1-1/2 hours. She has not had any fever she has had some mild hemoptysis denies chest pain. MD elicited complaint: shortness of breath and cough Pertinent past history: congestive heart failure and other (End-stage renal disease) Severity: mild Associated symptoms: Deny abdominal pain, chest congestion, chest pain, cough, diaphoresis, dizziness, extremity pain, fever(s), hemoptysis, lightheadedness, myalgias, nausea, orthopnea, palpitations, paresthesias, polydipsia, polyuria, rash, sense of impending doom, syncope or vomiting Treatment prior to arrival: oxygen Related Data: Home oxygen amount: 3 liters Review of Systems Const: Denies: fever(s) or diaphoresis Card: Denies: chest pain, palpitations, lightheadedness, syncope or orthopnea Resp: Denies: hemoptysis or chest congestion GI: Denies: abdominal pain, nausea or vomiting Musc: Denies: extremity pain Neuro: Denies: dizziness Endo: Denies: polyuria or polydipsia [facility] ED PFSH: Medical History (Updated 02/15/24 @ 16:32 by Kenrick Treviño DO) UTI (urinary tract infection) Major depressive disorder, recurrent episode, moderate with anxious distress Duodenal ulcer due to bacteria Coronary artery disease Immunization counseling High risk medication use Chronic knee pain Chronic low back pain COVID-14 August 2020 Seronegative rheumatoid arthritis of both hands Intermittent atrial fibrillation Poorly controlled diabetes mellitus CHF exacerbation Narrow complex tachycardia Inflammatory arthritis Osteoarthritis of knees, bilateral Fibromyalgia Lung nodule Unstable angina Low back pain of over 3 months duration Urgency incontinence Left renal mass COPD (chronic obstructive pulmonary disease) Oxygen dependent, 2 L at baseline Anxiety and depression Hypothyroidism Liver cirrhosis Hyperlipidemia Hypertension Recurrent UTI Surgical History History of cholecystectomy History of thyroid surgery History of cardiac cath History of hysterectomy History of knee replacement Family History Other CAD (coronary artery disease) Cancer Denies family history of Anesthesia complication Bleeding disorder Social History Smoking and tobacco/nicotine status: former use of tobacco/nicotine Quit status (tobacco/nicotine): has quit using Year quit tobacco: 2005 Second hand smoke exposure: No Alcohol intake: never Substance/Drug Use: never Adopted: No Caregiver/support person: No Lives independently: No Household members: spouse Marital status: Current occupational status: retired Current gender identity: Female Course Vital Signs: Vital signs: Vital Signs Temperature 98.0 F 02/15/24 10:34 Pulse Rate 84 02/15/24 16:50 Respiratory Rate 21 H 02/15/24 16:50 Blood Pressure 150/79 02/15/24 16:50 Pulse Oximetry 100 02/15/24 16:50 Oxygen Delivery Me thod Nasal Cannula 02/15/24 16:10 Oxygen Flow Rate 4 02/15/24 16:10 MDM - SOB/Dyspnea Medical Decision Making Chest x-ray at baseline with her chronic heart failure changes. She has been asymptomatic since arrival here. She does not appear to be in decompensated heart failure. She has bilateral pleural effusions that are persistent. CTA of the chest did not show any acute changes no PEs no evidence of pneumonia. There is pulmonary vascular congestion the effusions show slight increase on the right but decreased on the left compared to previous studies. Overall she is oxygenating well with no signs of decompensation heart failure. Continue regular medications will add doxycycline. Differential Diagnosis Likely acute exacerbation of chronic obstructive airways disease and congestive heart failure; Unlikely pulmonary embolism Medical Records I reviewed the patient's medical records. Lab Data I reviewed the patient's lab results. 02/15/24 10:50 02/15/24 10:50 Labs/Radiology: Radiology Impressions Chest X-Ray 02/15/24 10:35 IMPRESSION: 1. Congestive heart failure pattern with cardiac enlargement and bilateral pleural effusions. Very little change since the last study. Chest CTA 02/15/24 12:49 IMPRESSION: 1. No evidence of pulmonary embolism. 2. Interval increase in moderate right and decrease in small left pleural effusions. Mild interval increase in subjacent right pulmonary atelectasis and airspace disease. 3. Pulmonary vascular congestion. 4. Cardiomegaly with coronary artery calcifications. 5. Upper abdominal findings including hepatic cirrhosis again noted. Laboratory Results WBC 5.18 10^3/uL (3.29-11.43) 02/15/24 10:50 RBC 3.25 10^6/uL (3.85-5.65) L 02/15/24 10:50 Hgb 10.30 g/dL (11.27-16.99) L 02/15/24 10:50 Hct 33.5 % (36-47) L 02/15/24 10:50 MCV 103.1 fl (85-98) H 02/15/24 10:50 MCH 31.7 pg (27-33) 02/15/24 10:50 MCHC 30.7 g/dL (30-55) 02/15/24 10:50 RDW 17.5 % (12.1-15.1) H 02/15/24 10:50 Plt Count 163 10^3/cmm (157-399) 02/15/24 10:50 MPV 8.9 fL (7.4-10.4) 02/15/24 10:50 Neut % (Auto) 86.3 % 02/15/24 10:50 Lymph % (Auto) 8.3 % 02/15/24 10:50 [place] % (Auto) 1.5 % 02/15/24 10:50 Eos % (Auto) 2.7 % 02/15/24 10:50 Baso % (Auto) 0.8 % 02/15/24 10:50 Neut # (Auto) 4.47 10^3/uL (1.8-7.7) 02/15/24 10:50 Lymph # (Auto) 0.4 10^3/uL (0.8-4.8) L 02/15/24 10:50 [place] # (Auto) 0.1 10^3/uL (0.2-0.9) L 02/15/24 10:50 Eos # (Auto) 0.1 10^3/uL (0.0-0.8) 02/15/24 10:50 Baso # (Auto) 0.0 10^3/uL (0.0-0.1) 02/15/24 10:50 Nucleated RBC % (auto) 0 % 02/15/24 10:50 Nucleated RBCs # 0.0 /100WBC 02/15/24 10:50 Sodium 137 mmol/L (136-145) 02/15/24 10:50 Potassium 4.4 mmol/L (3.5-5.1) 02/15/24 10:50 Chloride 95 mmol/L (98-107) L 02/15/24 10:50 Carbon Dioxide 32 mmol/L (22-29) H 02/15/24 10:50 Anion Gap 14.4 (5-19) 02/15/24 10:50 BUN 40 mg/dL (8-23) H 02/15/24 10:50 Creatinine 1.5 mg/dL (0.5-0.9) H 02/15/24 10:50 GFR Calculation Not Reportable 02/15/24 10:50 Glucose 142 mg/dL (65-115) H 02/15/24 10:50 POC Glucose 98 mg/dL (70-110) 02/15/24 14:58 Calculated Osmolality 296 mOsm/kg (285-295) H 02/15/24 10:50 Calcium 9.5 mg/dL (8.5-10.5) 02/15/24 10:50 Total Bilirubin 0.5 mg/dL (0.15-1.2) 02/15/24 10:50 AST 69 U/L (0-32) H 02/15/24 10:50 ALT 51 U/L (0-33) H 02/15/24 10:50 Alkaline Phosphatase 228 U/L (35-105) H 02/15/24 10:50 Troponin T Baseline 60 ng/L (0-10) H 02/15/24 10:50 Troponin T 120 Minute 51.21 ng/L (0-10) H 02/15/24 13:28 Delta Troponin T -8.79 ABS# (0-10) L 02/15/24 13:28 NT-Pro-B Natriuret Pep 4261 pg/mL (0-450) H 02/15/24 10:50 Total Protein 7.2 g/dL (6.6-8.7) 02/15/24 10:50 Albumin 3.0 g/dL (3.5-5.2) L 02/15/24 10:50 Globulin 4.2 g/dL (1.3-4.6) 02/15/24 10:50 Procalcitonin 0.31 ng/mL (0-0.5) 02/15/24 10:50 All radiology interpretation(s) finalized by discharge Discharge Plan Discharge Patient Disposition: Home Clinical Impression: Cough with hemoptysis, ESRD on dialysis Condition: Stable Prescriptions: New doxycycline hyclate 100 mg capsule 100 mg PO BID 7 Days Qty: 14 0RF No Action nitroglycerin [Nitrostat] 0.4 mg tablet, sublingual 0.4 mg SUBLINGUAL Q5M PRN (Reason: Chest Pain) Qty: 30 3RF Rx Instructions: MAX 3 DOSES PER EPISODE levothyroxine [Euthyrox] 150 mcg tablet 150 mcg PO DAILY@06 calcium carbonate [Calcium 600] 600 mg calcium (1,500 mg) tablet 600 mg PO DAILY@07 hydrocodone-acetaminophen 5-325 mg tablet 1 tab PO TID PRN (Reason: Pain) cholecalciferol (vitamin D3) [Vitamin D3] 25 mcg (1,000 unit) Tablet 1,000 unit PO DAILY@07 pantoprazole 40 mg tablet,delayed release (DR/EC) 40 mg PO BID glucose 4 gram tablet,chewable 4 g PO PRN PRN (Reason: Hypoglycemia) Trelegy Ellipta 200-62.5-25 mcg blister with device 1 inh INHALATION DAILY Qty: 28 0RF insulin lispro [Humalog U-100 Insulin] 100 unit/mL Solution See Rx Instructions .ROUTE .COMPLEX MDD 40 Qty: 10 0RF Rx Instructions: per sliding scale with meals 150-200=2 units 201-250=4 units 251-300=6 units 301-350=8 units 351-400=10 units 401-450=12 units metolazone 2.5 mg Tablet See Rx Instructions .ROUTE .COMPLEX Rx Instructions: 2.5 mg orally twice weekly ON SUNDAY AND SUNDAY acetaminophen 325 mg Tablet 650 mg PO Q6H PRN (Reason: PAIN OR INCREASED TEMP) amiodarone 200 mg tablet 200 mg PO DAILY@07 meclizine 25 mg tablet 25 mg PO TID PRN (Reason: Nausea And Vomiting) bisacodyl [Dulcolax (bisacodyl)] 10 mg Suppository 10 mg MA DAILY PRN (Reason: if no bm x3 days ) nystatin [Nyamyc] 100,000 unit/gram powder See Rx Instructions .ROUTE .COMPLEX Rx Instructions: as directed every shift as needed (apply between thighs and affected areas twice a day as needed) methotrexate sodium 2.5 mg Tablet 6 mg PO Q7D Hold Instructions: Resume on 01/29/24. Rx Instructions: ON SUNDAY pyridoxine (vitamin B6) [Vitamin B-6] 250 mg Tablet 500 mg PO DAILY@08 magnesium L-lactate 84 mg tablet extended release 84 mg PO DAILY@08 aspirin 81 mg Tablet,Delayed Release (Dr/Ec) 81 mg PO DAILY Qty: 30 0RF folic acid 1 mg tablet 1 mg PO DAILY melatonin 1 mg tablet 1 mg PO BEDTIME MediHoney (honey) 80 % gel See Rx Instructions .ROUTE .COMPLEX Rx Instructions: APPLY TOPICALLY TO LEFT SACRUM: CLEANSE WITH NS AND GAUZE, APPLY MEDI-HONEY TO WOUND BED AND COVER WITH BORDERED SILICONE DRESSING EVERY OTHER DAY AND NEEDED. Calmoseptine 0.44-20.6 % Ointment See Rx Instructions .ROUTE .COMPLEX Rx Instructions: CLEANSE AND APPLY TOPICALLY TO GREG AREA EVERY SHIFT FOR PREVENTATIVE. midodrine 5 mg tablet 5 mg PO TID sertraline 25 mg tablet 25 mg PO BEDTIME metoprolol tartrate 25 mg tablet 25 mg PO BID Rx Instructions: HOLD IF BP SYSTOLIC LESS THAN 100 OR DIASTOLIC LESS THAN 60 Tresiba FlexTouch U-100 100 unit/mL (3 mL) insulin pen 12 unit SUBCUT BEDTIME bumetanide 2 mg tablet See Rx Instructions .ROUTE .COMPLEX Rx Instructions: TAKE 2 MG BY MOUTH TWICE DAILY ON SUNDAY, SUNDAY, SUNDAY, AND SUNDAY. Discharge Orders: Discharge ED (Routine); Ordered 02/15/24 Ordered By: Kenrick Treviño Referrals: Davion Griggs MD [Primary Care Provider] - Patient Instructions: Opioid Safety, Pain Management Activity Restrictions/Additional Instructions: Thank you for choosing [facility] for your healthcare needs today. It is very important that you follow up as instructed or that you return to the Emergency Department should you have concerns or if your condition changes or worsens in any way. You were seen today for complaints of shortness of breath. CT of your chest and chest x-ray did not show any evidence of pneumonia your white count is normal will have you take a short course of doxycycline return if you have worsening symptoms Coding Level of Care Code ED Grain Cleaner for Dougie Samson
--- NOTE | 2024-02-15 12:34 | PC.PHAR ---
PT IS FROM [facility]
--- NOTE | 2024-02-15 12:35 | ECG_ITS ---
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 Measurements Intervals [place] Rate: 88 P: 0 [place]: 0 QRS: -86 QRSD: 173 T: 80 QT: 446 QTc: 541 Interpretive Statements ATRIAL FIBRILLATION RIGHT BUNDLE BRANCH BLOCK [120+ ms QRS DURATION, UPRIGHT V1, 40+ ms S IN I/aVL/V4/V5/V6] LEFT ANTERIOR FASCICULAR BLOCK [QRS AXIS <= -45, QR IN I, RS IN II] POSSIBLE ANTERIOR MYOCARDIAL INFARCTION , OF INDETERMINATE AGE [30 ms Q WAVE IN V3/V4, OR R < 0.2 mV IN V4] Compared to ECG 02/15/2024 10:37:32 Atrial flutter no longer present Myocardial infarct finding still present Electronically Signed On 02-15-2024 14:02:27 CDT by Min Tipton M.D. [id number]
--- NOTE | 2024-02-15 12:49 | CTR_ITS ---
PROCEDURE INFORMATION: Exam: CTA Chest With Contrast Exam date and time: 02/15/2024 2:15 PM Age: 73 years old Clinical indication: Other: Hemoptysis TECHNIQUE: Imaging protocol: Computed tomographic angiography of the chest with contrast. Exam focused on the arteries. 3D rendering (Not supervised by radiologist): MIP and/or 3D reconstructed images were created by the technologist. Radiation optimization: All CT scans at this facility use at least one of these dose optimization techniques: automated exposure control; mA and/or kV adjustment per patient size (includes targeted exams where dose is matched to clinical indication); or iterative reconstruction. Contrast material: OMNI 350; Contrast volume: 100 ml; Contrast route: INTRAVENOUS (IV); COMPARISON: CT angio chest PE protcl [id number] 06/16/2023 9:57 PM RADIATION DOSE METRICS: Total DLP (mGy-cm): 417.06 FINDINGS: Pulmonary arteries: No pulmonary embolism evident. Large main pulmonary artery again noted raising the possibility of pulmonary arterial hypertension. Pulmonary vascular congestion is present. Aorta: No evidence of thoracic aortic aneurysm. Thyroid: Small thyroid containing calcifications with inhomogeneous density unchanged compared with the prior exam. No dominant mass evident. Lungs: See Pleural spaces finding. Pleural spaces: Interval increase in moderate right pleural effusion extension into the interlobar fissures. Atelectasis and airspace disease in the right lung subjacent to the effusion is also slightly increased projecting in the level of the right upper lobe. Interval decrease in a left pleural effusion which now small in size. Mild subjacent atelectasis in the left lung. Heart: Cardiomegaly. Coronary arteries: Coronary artery calcifications. Lymph nodes: No evidence of lymphadenopathy. Liver: Features of hepatic cirrhosis again seen in the upper abdomen, incompletely imaged. Gallbladder and biliary ducts: Prior cholecystectomy. Adrenal glands: Low-attenuation adrenal thickening in a pattern most consistent with adenomatous changes. Bones/joints: Moderate degenerative change present in the spine. Soft tissues: Unremarkable. Other findings: Evaluation limited by respiratory degradation. CT/CT angio chest PE protcl [id number] IMPRESSION: 1. No evidence of pulmonary embolism. 2. Interval increase in moderate right and decrease in small left pleural effusions. Mild interval increase in subjacent right pulmonary atelectasis and airspace disease. 3. Pulmonary vascular congestion. 4. Cardiomegaly with coronary artery calcifications. 5. Upper abdominal findings including hepatic cirrhosis again noted.
[2024-02-15 13:20] LABS: NT Pro B Type Natriuretic Pept 4261 pg/mL (0-450); Procalcitonin 0.31 ng/mL (0-0.5)
[2024-02-15 13:52] LABS: Troponin 5 2HR 51.21 ng/L (0-10)
[2024-02-15 13:53] LABS: Troponin 5 2HR Delta -8.79 ABS# (0-10)
[2024-02-15 15:08] LABS: Glucose Point of Care 98 mg/dL (70-110)
== END 2024-02-15 17:30 | disposition home or self-care (01) ==
PROVIDERS: Emergency Provider Family Medicine; PCP Family Medicine
DX: R04.2 Hemoptysis (principal); Z99.2 Dependence on renal dialysis; I25.10 Atherosclerotic heart disease of native coronary artery without angina pectoris; E11.22 Type 2 diabetes mellitus with diabetic chronic kidney disease; I13.2 Hypertensive heart and chronic kidney disease with heart failure and with stage 5 chronic kidney disease, or end stage renal disease; I50.9 Heart failure, unspecified; N18.6 End stage renal disease; J44.9 Chronic obstructive pulmonary disease, unspecified; Z99.81 Dependence on supplemental oxygen; E78.5 Hyperlipidemia, unspecified; Z87.891 Personal history of nicotine dependence
CPT/HCPCS: 36416; 71045; 71275; 80053; 82962; 83880; 84145; 84484; 85025; 93005; 99285; 99291; Q9967

== ENCOUNTER 2024-03-17 09:59 | Observation (INO) | payer MEDICARE, MEDICAID, SELFPAY ==
[2024-03-17] VITALS (17 sets, daily range): BP systolic 103–145; BP diastolic 56–83; PULSE 71–103; RESP 16–27; TEMP 36.8–36.9; O2SAT 90–100; BMI 31.6; BMI 34.9
--- NOTE | 2024-03-17 10:04 | ECG_ITS ---
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 Measurements Intervals [place] Rate: 99 P: 0 [place]: 0 QRS: 269 QRSD: 178 T: 69 QT: 422 QTc: 543 Interpretive Statements ATRIAL FIBRILLATION RIGHT AXIS DEVIATION [QRS AXIS > 100] RIGHT BUNDLE BRANCH BLOCK [120+ ms QRS DURATION, UPRIGHT V1, 40+ ms S IN I/aVL/V4/V5/V6] POSSIBLE ANTERIOR MYOCARDIAL INFARCTION , OF INDETERMINATE AGE [30 ms Q WAVE IN V3/V4, OR R < 0.2 mV IN V4] Compared to ECG 02/15/2024 12:24:09 Right-axis deviation now present Left anterior fascicular block no longer present Myocardial infarct finding still present Electronically Signed On 03-17-2024 14:31:04 CDT by Min Tipton M.D. [email or web address], [email or web address]-[id number]
--- NOTE | 2024-03-17 10:07 | XR_ITS ---
WS: [id number] PORTABLE CHEST HISTORY: Shortness of breath COMPARISON: 02/15/2024 Right-sided dialysis catheter with tips in the expected location SVC atrial junction. Volume loss in the RIGHT thorax with a small RIGHT pleural effusion. Pleural effusion has very slight ly increased in size since the prior study. There is also a small LEFT pleural effusion. Mild fluid o verload. Cardiac size: Moderately enlarged cardiac silhouette. Mediastinum/Aorta: Atherosclerotic plaque aorta. No osseous abnormality seen. XR/XR chest 1V portable [id number] IMPRESSION: 1. Small to moderate RIGHT and small LEFT pleural effusions. 2. Mild pulmonary edema. 3. Cardiomegaly.
--- NOTE | 2024-03-17 10:17 | W.ED.SOB ---
HPI - SOB/Dyspnea General: Chief Complaint: Shortness of Breath/Dyspnea Stated Complaint: DIFF. BREATHING Time Seen by Provider: 03/17/24 10:06 History of Present Illness: HPI Narrative: 73-year-old female with history of end-stage renal disease on dialysis, COPD, chronic hypoxemic respiratory failure on 2-3 L nasal cannula at all times, obstructive sleep apnea on BiPAP at night, hypertension, fibromyalgia, congestive heart failure, chronic pain syndrome, coronary artery disease and depression who presents the emergency room with worsening shortness of breath and hypoxemia. Apparently she was in the 60s on her normal 3 L. She is on 6 L on presentation with a sat of 90. Lungs are very coarse, she has extensive scattered expiratory wheeze. Tachypnea and increased work of breathing. She says she does not have any new swelling in her legs. She did go to dialysis on Sunday. No known fevers. She has had some cough. She is bringing up some pink frothy sputum today. No altered mental status. No focal motor deficits. No abdominal pain. No vomiting. Review of Systems Narrative: Constitutional symptoms: Negative except as documented in HPI. Skin symptoms: Negative except as documented in HPI. Eye symptoms: Negative except as documented in HPI. ENMT symptoms: Negative except as documented in HPI. Respiratory symptoms: Negative except as documented in HPI. Cardiovascular symptoms: Negative except as documented in HPI. Gastrointestinal symptoms: Negative except as documented in HPI. Genitourinary symptoms: Negative except as documented in HPI. Musculoskeletal symptoms: Negative except as documented in HPI. Neurologic symptoms: Negative except as documented in HPI. Psychiatric symptoms: Negative except as documented in HPI. Endocrine symptoms: Negative except as documented in HPI. [facility] PFSH: Medical History (Updated 03/17/24 @ 12:21 by Aby Gee MD) UTI (urinary tract infection) Major depressive disorder, recurrent episode, moderate with anxious distress Duodenal ulcer due to bacteria Coronary artery disease Immunization counseling High risk medication use Chronic knee pain Chronic low back pain COVID-14 August 2020 Seronegative rheumatoid arthritis of both hands Intermittent atrial fibrillation Poorly controlled diabetes mellitus CHF exacerbation Narrow complex tachycardia Inflammatory arthritis Osteoarthritis of knees, bilateral Fibromyalgia Lung nodule Unstable angina Low back pain of over 3 months duration Urgency incontinence Left renal mass COPD (chronic obstructive pulmonary disease) Oxygen dependent, 2 L at baseline Anxiety and depression Hypothyroidism Liver cirrhosis Hyperlipidemia Hypertension Recurrent UTI Surgical History History of cholecystectomy History of thyroid surgery History of cardiac cath History of hysterectomy History of knee replacement Family History Other CAD (coronary artery disease) Cancer Denies family history of Anesthesia complication Bleeding disorder Social History Smoking and tobacco/nicotine status: former use of tobacco/nicotine Quit status (tobacco/nicotine): has quit using Year quit tobacco: 2005 Second hand smoke exposure: No Alcohol intake: never Substance/Drug Use: never Adopted: No Caregiver/support person: No Lives independently: No Household members: spouse Marital status: Current occupational status: retired Current gender identity: Female Physical Exam Narrative: EXAM NARRATIVE: General: Alert, moderate distress. Skin: Warm, dry. Head: Normocephalic, atraumatic. Neck: Supple, trachea midline. Eye: Extraocular movements are intact. Ears, nose, mouth and throat: Oral mucosa moist. Cardiovascular: Regular rate and rhythm, Normal peripheral perfusion. Respiratory: coarse, scattered wheeze, moderate increased wob. tachypnea, prolonged expiratory phase. breath sounds are equal, Symmetrical chest wall expansion. Gastrointestinal: Soft, Nontender, Non distended, Normal bowel sounds. Musculoskeletal: Normal ROM, no deformity. Neurological: Alert and oriented to person, place, time, and situation, No focal neurological deficit observed. Psychiatric: Cooperative, appropriate mood & affect. Course Vital Signs: Vital signs: Vital Signs Temperature 98.2 F 03/17/24 10:01 Pulse Rate 77 03/17/24 11:47 Respiratory Rate 20 H 03/17/24 11:44 Blood Pressure 103/56 03/17/24 11:43 Pulse Oximetry 100 03/17/24 11:47 Oxygen Delivery Me thod BiPAP 03/17/24 11:44 Oxygen Flow Rate 5 03/17/24 10:01 Fraction of Inspir ed Oxygen 40 03/17/24 11:47 MDM - SOB/Dyspnea Medical Decision Making Differential diagnosis for patient with shortness of breath includes but is not limited to and based on the above HPI, review of systems and physical exam: Pneumonia. Bronchitis. Asthma or COPD with acute exacerbation. Acute coronary syndrome / CT. Pulmonary embolism. Anxiety. Congestive heart failure. Viral infections including influenza and Covid-19. Atrial fibrillation. Anxiety. Pleural effusion. Pneumothorax. Workup: Lab work, chest X-ray and EKG ordered to evaluate, rule in and rule out above pathologies EKG: Time 10:04 AM. Rate 99. Atrial fibrillation with controlled ratel. Right bundle branch block. Nonspecific ST wave abnormalities, no ectopy, normal [place] & QRS intervals, This was reviewed and interpreted by myself the ER physician at 10:10 AM AB.33/59/66 with a O2 sat of 90% on 5 L nasal cannula. She does have some acidosis and some CO2 retention. She has not been wearing her CPAP at night because of a sore on her nose. Chest x-ray: Mild right and left pleural effusions. Mild early pulmonary edema. Cardiomegaly.. This was reviewed and interpreted by myself the ER physician. Lab Review: Laboratory results were reviewed and interpreted by myself the emergency room physician. No leukocytosis. White count is 8. Stable anemia at 10.3 for her hemoglobin. BUN and creatinine are as would be expected 29 and 1.9. proBNP is mildly elevated at 9500 which is not as high as it has been in the past. Troponin is around her baseline at 50. EKG: Time 1242. Rate 82. Right bundle branch block. Nonspecific ST changes. Atrial fibrillation with controlled rate, This was reviewed and interpreted by myself the ER physician at 1245. I reviewed the patient's medical record. Reexamination: Patient appears much more comfortable on a BiPAP. Work of breathing has definitely improved after breathing treatments and steroids and the BiPAP. No altered mental status. No focal motor deficits. I discussed findings with her . Consultation: I spoke with Dr. Lockhart who is on-call for the hospitalist who agrees to admission. Assessment and plan: COPD with acute exacerbation Acute on chronic hypoxemic respiratory failure Hypercapnic respiratory failure End-stage renal disease on dialysis Pleural effusions -Patient placed on BiPAP for work of breathing and CO2 retention. IV Solu-Medrol and multiple updrafts were given. ? Patient does have increased oxygen requirement at 5 L. ? No indications for emergent dialysis. She does have some small pleural effusions, but no overt heart failure and no hyperkalemia. -I discussed the patient with the hospitalist on-call who is admitting the patient. - Discussed findings and plan with patient. Answered any questions. - All laboratory values were reviewed and interpreted personally by myself, the ER physician - All imaging was reviewed and interpreted personally by myself, the ER physician. - Evaluation and treatment of this problem were appropriate in the emergency setting -I spent a total of >35 minutes of critical care time managing the patient, independent of any other practitioner. -The time involved in the performance of separately reportable procedures was not counted towards critical care time. Lab Data 03/17/24 10:28 03/17/24 10:28 Labs/Radiology: Radiology Impressions Chest X-Ray 03/17/24 10:07 IMPRESSION: 1. Small to moderate RIGHT and small LEFT pleural effusions. 2. Mild pulmonary edema. 3. Cardiomegaly. Laboratory Results WBC 7.94 10^3/uL (3.29-11.43) 03/17/24 10: RBC 3.20 10^6/uL (3.85-5.65) L 03/17/24 10:28 Hgb 10.30 g/dL (11.27-16.99) L 03/17/24 10:28 Hct 34.1 % (36-47) L 03/17/24 10:28 MCV 106.6 fl (85-98) H 03/17/24 10:28 MCH 32.2 pg (27-33) 03/17/24 10:28 MCHC 30.2 g/dL (30-55) 03/17/24 10:28 RDW 18.6 % (12.1-15.1) H 03/17/24 10:28 Plt Count 265 10^3/cmm (157-399) 03/17/24 10:28 MPV 8.6 fL (7.4-10.4) 03/17/24 10:28 Neut % (Auto) 85.8 % 03/17/24 10:28 Lymph % (Auto) 4.3 % 03/17/24 10:28 [place] % (Auto) 6.9 % 03/17/24 10:28 Eos % (Auto) 0.6 % 03/17/24 10:28 Baso % (Auto) 1.0 % 03/17/24 10:28 Neut # (Auto) 6.81 10^3/uL (1.8-7.7) 03/17/24 10:28 Lymph # (Auto) 0.3 10^3/uL (0.8-4.8) L 03/17/24 10:28 [place] # (Auto) 0.6 10^3/uL (0.2-0.9) 03/17/24 10:28 Eos # (Auto) 0.1 10^3/uL (0.0-0.8) 03/17/24 10:28 Baso # (Auto) 0.1 10^3/uL (0.0-0.1) 03/17/24 10:28 Nucleated RBC % (auto) 0 % 03/17/24 10:28 Nucleated RBCs # 0.0 /100WBC 03/17/24 10:28 Specimen Type Arterial 03/17/24 10:10 Sample Site Radial, left 03/17/24 10:10 ABG pH 7.33 (7.35-7.45) L 03/17/24 10:10 ABG pCO2 59.9 mmHg (35-45) H 03/17/24 10:10 ABG pO2 66.2 mmHg (80.0-100.0) L 03/17/24 10:10 ABG PO2/FiO2 Ratio 165 03/17/24 10:10 ABG HCO3 31.5 mmol/L (22-26) H 03/17/24 10:10 ABG O2 Saturation 90.1 03/17/24 10:10 ABG Base Excess 4.4 mmol/L (-2.0-2.0) H 03/17/24 10:10 Memo Test Pos 03/17/24 10:10 A-a O2 Gradient 19.2 mmHg (5-10) H 03/17/24 10:10 Hematocrit 31.2 % (37-47) L 03/17/24 10:10 Hgb O2 Saturation 88.6 % (95-100) L 03/17/24 10:10 Carboxyhemoglobin 1.5 %THgb (0.4-20.1) 03/17/24 10:10 Methemoglobin 0.1 % (0.4-1.5) L 03/17/24 10:10 Total Hemoglobin 10.2 g/dL (12-16) L 03/17/24 10:10 Sodium 138.0 mmol/L (131-143) 03/17/24 10:10 Potassium 3.8 mmol/L (3.5-5.0) 03/17/24 10:10 Glucose 197.0 mg/dL (70-115) H 03/17/24 10:10 Ionized Calcium 1.3 mmol/L (1.1-1.4) 03/17/24 10:10 O2 Delivery Device Nc 03/17/24 10:10 O2 Liters/Min 5.0 % 03/17/24 10:10 FiO2 40.0 % 03/17/24 10:10 Director Of Manufacturing Operations ID Juliaro 03/17/24 10:10 Sodium 138 mmol/L (136-145) 03/17/24 10:28 Potassium 4.3 mmol/L (3.5-5.1) 03/17/24 10:28 Chloride 98 mmol/L (98-107) 03/17/24 10:28 Carbon Dioxide 29 mmol/L (22-29) 03/17/24 10:28 Anion Gap 15.3 (5-19) 03/17/24 10:28 BUN 29 mg/dL (8-23) H 03/17/24 10:28 Creatinine 1.9 mg/dL (0.5-0.9) H 03/17/24 10:28 GFR Calculation Not Reportable 03/17/24 10:28 Glucose 209 mg/dL (65-115) H 03/17/24 10:28 Calculated Osmolality 298 mOsm/kg (285-295) H 03/17/24 10:28 Lactic Acid 1.5 mmol/L (0.5-2.2) 03/17/24 10:28 Calcium 9.1 mg/dL (8.5-10.5) 03/17/24 10:28 Phosphorus 4.3 mg/dL (2.5-4.5) 03/17/24 10:28 Magnesium 1.6 mg/dL (1.7-2.3) L 03/17/24 10:28 Total Bilirubin 0.4 mg/dL (0.15-1.2) 03/17/24 10:28 AST 24 U/L (0-32) 03/17/24 10:28 ALT 16 U/L (0-33) 03/17/24 10:28 Alkaline Phosphatase 183 U/L (35-105) H 03/17/24 10:28 Troponin T Baseline 51 ng/L (0-10) H 03/17/24 10:28 Troponin T 120 Minute 53.85 ng/L (0-10) H 03/17/24 12:27 Delta Troponin T 2.85 ABS# (0-10) 03/17/24 12:27 NT-Pro-B Natriuret Pep 9123 pg/mL (0-450) H 03/17/24 10:28 Total Protein 6.9 g/dL (6.6-8.7) 03/17/24 10:28 Albumin 3.3 g/dL (3.5-5.2) L 03/17/24 10:28 Globulin 3.6 g/dL (1.3-4.6) 03/17/24 10:28 All radiology interpretation(s) finalized by discharge Discharge Plan Discharge Patient Disposition: Admitted As Inpatient Clinical Impression: Acute on chronic hypoxic respiratory failure, End stage renal disease on dialysis, COPD with acute exacerbation, Hypercapnic respiratory failure, Pleural effusion, bilateral Condition: Stable Coding Level of Care Code ED Warranty Manager for Dougie Samson
[2024-03-17 10:23] LABS: ABG PCO2 59.9 mmHg (35-45); ABG PH Result 7.33 (7.35-7.45); Alveolar-Arterial Oxygen Gradi 19.2 mmHg (5-10); Arterial Blood Gas Hematocrit 31.2 % (37-47); Base Excess ABG 4.4 mmol/L (-2.0-2.0); Blood Gas Allen Test Pos; Blood Gas Operator Identificat MONRO; Blood Gas Sample Site Radial, left; Blood Gas Sample Type Arterial; Carboxyhemoglobin 1.5 %THgb (0.4-20.1); HCO3 ABG 31.5 mmol/L (22-26); HGB O2 Sat 88.6 % (95-100); Ionized Calcium Level - ABG 1.3 mmol/L (1.1-1.4); Methemoglobin 0.1 % (0.4-1.5); Oxygen Device NC; Oxygen Saturation ABG 90.1; PO2 ABG 66.2 mmHg (80.0-100.0); PO2 FiO2 Ratio Arterial Blood 165; Potassium Level - ABG 3.8 mmol/L (3.5-5.0); Total Hemoglobin 10.2 g/dL (12-16)
[2024-03-17 10:46] LABS: Basophils # 0.1 10^3/uL (0.0-0.1); Eosinophils # 0.1 10^3/uL (0.0-0.8); Eosinophils % 0.6 %; Hematocrit 34.1 % (36-47); Lymphocytes # 0.3 10^3/uL (0.8-4.8); Lymphocytes % 4.3 %; Mean Corpuscular HGB Conc 30.2 g/dL (30-55); Mean Corpuscular Hemoglobin 32.2 pg (27-33); Mean Corpuscular Volume 106.6 fl (85-98); Mean Platelet Volume 8.6 fL (7.4-10.4); Monocytes # 0.6 10^3/uL (0.2-0.9); Monocytes % 6.9 %; Neutrophils # 6.81 10^3/uL (1.8-7.7); Neutrophils % 85.8 %; Nucleated Red Blood Cells % 0 %; Platelet Count 265 10^3/cmm (157-399); Red Cell Distribution Width 18.6 % (12.1-15.1); White Blood Count 7.94 10^3/uL (3.29-11.43)
[2024-03-17 10:55] LABS: Troponin(5th) Baseline 51 ng/L (0-10)
[2024-03-17 10:57] LABS: Lactic Sepsis W/Reflex 1.5 mmol/L (0.5-2.2)
[2024-03-17 11:03] LABS: Alanine Aminotransferase 16 U/L (0-33); Albumin Level 3.3 g/dL (3.5-5.2); Alkaline Phosphatase 183 U/L (35-105); Anion Gap 15.3 (5-19); Aspartate Amino Transferase 24 U/L (0-32); Blood Urea Nitrogen 29 mg/dL (8-23); Calcium 9.1 mg/dL (8.5-10.5); Carbon Dioxide 29 mmol/L (22-29); Chloride 98 mmol/L (98-107); Creatinine Clr Calc Pharmacy 27.7353; Globulin 3.6 g/dL (1.3-4.6); Glucose 209 mg/dL (65-115); Magnesium 1.6 mg/dL (1.7-2.3); NT Pro B Type Natriuretic Pept 9123 pg/mL (0-450); Osmolality Calculated 298 mOsm/kg (285-295); Phosphorus 4.3 mg/dL (2.5-4.5); Potassium 4.3 mmol/L (3.5-5.1); Sodium 138 mmol/L (136-145); Total Bilirubin 0.4 mg/dL (0.15-1.2); Total Protein 6.9 g/dL (6.6-8.7)
--- NOTE | 2024-03-17 11:31 | PC.PHAR ---
PT ID FROM [facility] MED LIST 03/17/24
[2024-03-17] MEDS: methylPREDNISolone sod succ 125 mg/2 mL INJ IVP (11:41)
[2024-03-17] MEDS: albuterol 2.5 mg/3 mL Neb INHALATION (11:42)
[2024-03-17] MEDS: ipratropium-albuterol 3 mL Neb INHALATION ×2 (11:42→20:19)
--- NOTE | 2024-03-17 12:07 | ECG_ITS ---
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 Measurements Intervals [place] Rate: 82 P: 0 TN: 0 QRS: 261 QRSD: 177 T: 30 QT: 473 QTc: 553 Interpretive Statements ATRIAL FIBRILLATION RIGHT AXIS DEVIATION [QRS AXIS > 100] RIGHT BUNDLE BRANCH BLOCK [120+ ms QRS DURATION, UPRIGHT V1, 40+ ms S IN I/aVL/V4/V5/V6] POSSIBLE ANTERIOR MYOCARDIAL INFARCTION , PROBABLY OLD [30 ms Q WAVE IN V3/V4, OR R < 0.2 mV IN V4] Compared to ECG 03/17/2024 10:04:12 No significant changes Electronically Signed On 03-17-2024 14:32:27 CDT by Min Tipton M.D. [email or web address]
[2024-03-17 12:54] LABS: Troponin 5 2HR 53.85 ng/L (0-10); Troponin 5 2HR Delta 2.85 ABS# (0-10)
--- NOTE | 2024-03-17 13:22 | PM.HP ---
Providers/Chief Complaint Admitting Physician: Sangita Lockhart MD Primary Care Provider: Dr Champagne Chief Complaint: DIFF. BREATHING History of Present Illness Myesha Parker is a 73 year old female who presented to the emergency room with difficulty breathing. She has been having progressively worsening difficulty breathing over the last week or so. Seemed okay over the weekend but worse today. Unable to catch her breath. Not really able to produce much sputum but feels like she needs to. Has some substernal chest pain without radiation but no pleuritic type chest pain. No fevers. No definite upper respiratory symptoms. Has had some nausea but no vomiting. Occasional abdominal discomfort. Has been constipated in which she will go couple days without having a bowel movement but then has large volume, sometimes loose. No blood has been noted in stools. Some vaginal discomfort with urination. Sacral area is healing well. No sores noted to her feet or heels. She is nonambulatory at baseline. In talking with her she is on 3-3 and half liters of oxygen by nasal cannula at baseline. Attempt was made to decrease it to 2 L yesterday. She does have sleep apnea but is not tolerant of either CPAP or BiPAP machine at the facility where she lives because it is different than what we utilize here. She was in significant distress and route and on arrival. She received breathing treatments, steroids and was placed on BiPAP therapy. Request was made for admission given the degree of respiratory symptoms at presentation. She is chronic dialysis patient receiving dialysis on Tuesdays, and Saturdays. Has not missed any sessions. She has been taking her medications which do include diuretics among others as prescribed. She is chronically on methotrexate with last dose on Sunday. Anxiety has been contributor to her difficulty breathing lately. Reviewing facility records and talking with her she has been trialed on alprazolam. It seemed to help from her perspective. It was stopped on March 03, I imagine due to worsening hypercapnia or symptoms suggesting such though this is speculation on my part. Review of Systems General: Reports: Other (ROS as per HPI or as otherwise noted here) Const: Reports: fatigue; Denies: change in weight Eyes: Reports: other (cant see out of right eye, light hurts right eye) ENMT: Denies: throat pain Card: Reports: chest pain and swelling of feet/ankles; Denies: palpitations or syncope Resp: Reports: dyspnea and wheezing; Denies: productive cough, non-productive cough, pain on inspiration or hemoptysis GI: Reports: constipation and other (feels like stool there sometimes); Denies: vomiting or hematochezia Skin/Breast: Reports: other (sacral wound healing) Neuro: Reports: weakness in extremities (no acute change, non-ambulatory) Psych: Reports: anxiety and sleeping less [place]/Lymph: Denies: easy bruising or easy bleeding Medications/Allergies Home Medications Medication Instructions Recorded Confirmed Last Taken Type cholecalciferol (vitamin D3) 25 1,000 unit PO DAILY@10/12/19 03/17/24 03/17/24 History mcg (1,000 unit) tablet (Vitamin D3) nitroglycerin 0.4 mg sublingual 0.4 mg sublingual Q5M PRN Chest 02/08/21 03/17/24 Unknown Rx tablet (Nitrostat) Pain #30 tabs calcium carbonate (Calcium 600) 600 mg PO DAILY@06/27/21 03/17/24 03/17/24 History levothyroxine 150 mcg tablet 150 mcg PO DAILY@06/27/21 03/17/24 03/17/24 History (Euthyrox) pantoprazole 40 mg tablet,delayed 40 mg PO BID 09/13/21 03/17/24 03/17/24 History release glucose 4 gram chewable tablet 4 g PO PRN PRN Hypoglycemia 06/17/23 03/17/24 Unknown History fluticasone fur. 200 mcg-umeclid 1 inh inhalation DAILY #28 ea 06/20/23 03/17/24 03/17/24 Rx 62.5 mcg-vilant 25 mcg inhalat.powder (Trelegy Ellipta) insulin lispro 100 unit/mL See Rx Instructions .Route 08/17/23 03/17/24 03/17/24 Rx subcutaneous solution (Humalog .COMPLEX #10 mL U-100 Insulin) hydrocodone 5 mg-acetaminophen 325 1 tab PO TID PRN Pain 09/24/23 03/17/24 03/16/24 History mg tablet acetaminophen 325 mg tablet 650 mg PO Q6H PRN PAIN OR 09/30/23 03/17/24 01/04/24 History INCREASED TEMP amiodarone 200 mg tablet 200 mg PO DAILY@09/30/23 03/17/24 03/17/24 History bisacodyl 10 mg rectal suppository 10 mg CA DAILY PRN if no bm x3 days 09/30/23 03/17/24 11/22/23 History (Dulcolax (bisacodyl)) meclizine 25 mg tablet 25 mg PO TID PRN Nausea And 09/30/23 03/17/24 03/13/24 History Vomiting metolazone 2.5 mg tablet See Rx Instructions .Route .COMPLEX 09/30/23 03/17/24 03/15/24 History nystatin 100,000 unit/gram topical See Rx Instructions .Route .COMPLEX 09/30/23 03/17/24 Unknown History powder ([facility]) magnesium L-lactate 84 mg 84 mg PO DAILY@10/12/23 03/17/24 03/17/24 History tablet,extended release methotrexate sodium 2.5 mg tablet 6 mg PO Q7D 10/12/23 03/17/24 03/15/24 History pyridoxine (vitamin B6) 250 mg 500 mg PO DAILY@10/12/23 03/17/24 03/17/24 History tablet (Vitamin B-6) aspirin 81 mg tablet,delayed 81 mg PO DAILY #30 tabs 10/19/23 03/17/24 03/17/24 Rx release bumetanide 2 mg tablet See Rx Instructions .Route .COMPLEX 12/15/23 03/17/24 03/17/24 History folic acid 1 mg tablet 1 mg PO DAILY 01/09/24 03/17/24 03/17/24 History honey 80 % topical gel (MediHoney See Rx Instructions .Route .COMPLEX 01/09/24 03/17/24 03/16/24 History (honey)) melatonin 1 mg tablet 1 mg PO BEDTIME 01/09/24 03/17/24 03/16/24 History insulin degludec 100 unit/mL (3 12 unit SUBCUT BEDTIME 02/15/24 03/17/24 03/16/24 History mL) subcutaneous pen (Tresiba FlexTouch U-100 insulin) menthol 0.44 %-zinc oxide 20.6 % See Rx Instructions .Route .COMPLEX 02/15/24 03/17/24 03/16/24 History topical ointment (Calmoseptine) metoprolol tartrate 25 mg tablet 25 mg PO BID 02/15/24 03/17/24 03/17/24 History midodrine 5 mg tablet 5 mg PO TID 02/15/24 03/17/24 03/16/24 History carica papaya 4 tab PO TID 03/17/24 03/17/24 03/17/24 History lidocaine 5 % topical patch 1 patch topical BID 03/17/24 03/17/24 03/17/24 History polyethylene glycol 3350 17 17 g PO DAILY 03/17/24 03/17/24 03/17/24 History gram/dose oral powder (Miralax) sertraline 100 mg tablet 100 mg PO BEDTIME 03/17/24 03/17/24 03/16/24 History Allergies Allergy/AdvReac Type Severity Reaction Status Date / Time adhesive tape Allergy rash Verified 01/07/24 09:18 cinnamon Allergy sinus Verified 01/07/24 09:18 codeine Allergy unknown Verified 01/07/24 09:18 cedar Allergy sinus Uncoded 01/07/24 09:18 pine Allergy sinus Uncoded 01/07/24 09:18 pork food Allergy ADR-Nausea Uncoded 01/07/24 09:18 PFSH Acute PFSH: Medical History (Updated 03/17/24 @ 16:26 by Sangita Lockhart MD) History of cardiovascular stress test 09/2023 History of stroke Diabetes mellitus, type II Myasthenia gravis listed in [facility] records Amber albicans infection 2022 Clostridioides difficile diarrhea 12/18 Inflammatory arthritis Sleep apnea in adult noncompliant with CPAP/BiPAP in outpt setting (machine feels different) Colon polyp Gastric polyposis UGIB (upper gastrointestinal bleed) 2020 Chronic atrial fibrillation not on chronic anticoagulation due to recurrent falls and prior GI bleed NSTEMI (non-ST elevated myocardial infarction) Congestive heart failure (CHF) Orthostatic hypotension Chronic post-traumatic stress disorder (PTSD) Major depressive disorder, recurrent episode, moderate with anxious distress Duodenal ulcer due to bacteria 08/16 Coronary artery disease Chronic knee pain Chronic low back pain COVID-14 August 2020 Seronegative rheumatoid arthritis of both hands Osteoarthritis of knees, bilateral Fibromyalgia Lung nodule Unstable angina Urgency incontinence Left renal mass COPD (chronic obstructive pulmonary disease) Oxygen dependent, 3-3.5 L at baseline Hypothyroidism Liver cirrhosis Hyperlipidemia Hypertension Recurrent UTI Surgical History (Updated 03/17/24 @ 16:24 by Sangita Lockhart MD) S/P dialysis catheter insertion 07/2023 History of colonoscopy 06/23/22 History of esophagogastroduodenoscopy (EGD) 06/23/22 History of cholecystectomy History of thyroid surgery History of cardiac cath History of hysterectomy History of knee replacement Family History Other CAD (coronary artery disease) Cancer Denies family history of Anesthesia complication Bleeding disorder Social History (Updated 03/17/24 @ 15:03 by Sangita Lockhart MD) Smoking and tobacco/nicotine status: former use of tobacco/nicotine Quit status (tobacco/nicotine): has quit using Year quit tobacco: 2005 Second hand smoke exposure: No Alcohol intake: never Substance/Drug Use: never Adopted: No Caregiver/support person: No Lives independently: No Household members: spouse Housing: Long Term Marital status: Current occupational status: retired Current gender identity: Female Vitals/I&O/Wt Last Vital Signs Temp 98.2 F 03/17/24 10:01 Pulse 77 03/17/24 11:47 Resp 20 H 03/17/24 11:44 BP 103/56 03/17/24 11:43 Pulse Ox 100 03/17/24 11:47 O2 Del Method BiPAP 03/17/24 11:44 O2 Flow Rate 5 03/17/24 10:01 FiO2 40 03/17/24 11:47 Weight last 48 hrs Weight 86.183 kg Physical Exam Narrative: Patient is awake and alert, currently on oxygen at 4 L by nasal cannula. Able to provide history but pauses every now and then when talking. Eyes are both puffy but otherwise normocephalic. Right pupil is large and irregular, sensitive to light. Left pupil reactive to light. Oropharynx with moist mucous membranes. Neck is large but supple. Lungs with bilateral end expiratory wheezes predominantly in the apices. Decreased breath sounds at the bases, right more so than left on my examination. No rales or rhonchi currently noted. Abdomen is soft, inconsistent tenderness to palpation in right upper and lower quadrants without any rebound or guarding noted. Positive bowel sounds. Extremities trace edema at both ankles. Stage II decubiti and sacral area not visualized by me at this time but present on admission per records from facility and nursing evaluation. Speech is clear, face symmetric, moves both upper extremities, weak both lower extremities with some decreased musculature noted. Data 03/17/24 10:28 03/17/24 10:28 Other Labs: Radiology Impressions Chest X-Ray 03/17/24 10:07 IMPRESSION: 1. Small to moderate RIGHT and small LEFT pleural effusions. 2. Mild pulmonary edema. 3. Cardiomegaly. Laboratory Results WBC 7.94 10^3/uL (3.29-11.43) 03/17/24 10:28 RBC 3.20 10^6/uL (3.85-5.65) L 03/17/24 10:28 Hgb 10.30 g/dL (11.27-16.99) L 03/17/24 10:28 Hct 34.1 % (36-47) L 03/17/24 10:28 MCV 106.6 fl (85-98) H 03/17/24 10:28 MCH 32.2 pg (27-33) 03/17/24 10:28 MCHC 30.2 g/dL (30-55) 03/17/24 10:28 RDW 18.6 % (12.1-15.1) H 03/17/24 10:28 Plt Count 265 10^3/cmm (157-399) 03/17/24 10:28 MPV 8.6 fL (7.4-10.4) 03/17/24 10:28 Neut % (Auto) 85.8 % 03/17/24 10:28 Lymph % (Auto) 4.3 % 03/17/24 10:28 Mccone % (Auto) 6.9 % 03/17/24 10:28 Eos % (Auto) 0.6 % 03/17/24 10:28 Baso % (Auto) 1.0 % 03/17/24 10:28 Neut # (Auto) 6.81 10^3/uL (1.8-7.7) 03/17/24 10:28 Lymph # (Auto) 0.3 10^3/uL (0.8-4.8) L 03/17/24 10:28 Mccone # (Auto) 0.6 10^3/uL (0.2-0.9) 03/17/24 10:28 Eos # (Auto) 0.1 10^3/uL (0.0-0.8) 03/17/24 10:28 Baso # (Auto) 0.1 10^3/uL (0.0-0.1) 03/17/24 10:28 Nucleated RBC % (auto) 0 % 03/17/24 10:28 Nucleated RBCs # 0.0 /100WBC 03/17/24 10:28 Specimen Type Arterial 03/17/24 10:10 Sample Site Radial, left 03/17/24 10:10 ABG pH 7.33 (7.35-7.45) L 03/17/24 10:10 ABG pCO2 59.9 mmHg (35-45) H 03/17/24 10:10 ABG pO2 66.2 mmHg (80.0-100.0) L 03/17/24 10:10 ABG PO2/FiO2 Ratio 165 03/17/24 10:10 ABG HCO3 31.5 mmol/L (22-26) H 03/17/24 10:10 ABG O2 Saturation 90.1 03/17/24 10:10 ABG Base Excess 4.4 mmol/L (-2.0-2.0) H 03/17/24 10:10 Memo Test Pos 03/17/24 10:10 A-a O2 Gradient 19.2 mmHg (5-10) H 03/17/24 10:10 Hematocrit 31.2 % (37-47) L 03/17/24 10:10 Hgb O2 Saturation 88.6 % (95-100) L 03/17/24 10:10 Carboxyhemoglobin 1.5 %THgb (0.4-20.1) 03/17/24 10:10 Methemoglobin 0.1 % (0.4-1.5) L 03/17/24 10:10 Total Hemoglobin 10.2 g/dL (12-16) L 03/17/24 10:10 Sodium 138.0 mmol/L (131-143) 03/17/24 10:10 Potassium 3.8 mmol/L (3.5-5.0) 03/17/24 10:10 Glucose 197.0 mg/dL (70-115) H 03/17/24 10:10 Ionized Calcium 1.3 mmol/L (1.1-1.4) 03/17/24 10:10 O2 Delivery Device Nc 03/17/24 10:10 O2 Liters/Min 5.0 % 03/17/24 10:10 FiO2 40.0 % 03/17/24 10:10 Pulmonary Physical Therapist ID Saman 03/17/24 10:10 Sodium 138 mmol/L (136-145) 03/17/24 10:28 Potassium 4.3 mmol/L (3.5-5.1) 03/17/24 10:28 Chloride 98 mmol/L (98-107) 03/17/24 10:28 Carbon Dioxide 29 mmol/L (22-29) 03/17/24 10:28 Anion Gap 15.3 (5-19) 03/17/24 10:28 BUN 29 mg/dL (8-23) H 03/17/24 10:28 Creatinine 1.9 mg/dL (0.5-0.9) H 03/17/24 10:28 GFR Calculation Not Reportable 03/17/24 10:28 Glucose 209 mg/dL (65-115) H 03/17/24 10:28 Calculated Osmolality 298 mOsm/kg (285-295) H 03/17/24 10:28 Lactic Acid 1.5 mmol/L (0.5-2.2) 03/17/24 10:28 Calcium 9.1 mg/dL (8.5-10.5) 03/17/24 10:28 Phosphorus 4.3 mg/dL (2.5-4.5) 03/17/24 10:28 Magnesium 1.6 mg/dL (1.7-2.3) L 03/17/24 10:28 Total Bilirubin 0.4 mg/dL (0.15-1.2) 03/17/24 10:28 AST 24 U/L (0-32) 03/17/24 10:28 ALT 16 U/L (0-33) 03/17/24 10:28 Alkaline Phosphatase 183 U/L (35-105) H 03/17/24 10:28 Troponin T Baseline 51 ng/L (0-10) H 03/17/24 10:28 Troponin T 120 Minute 53.85 ng/L (0-10) H 03/17/24 12:27 Delta Troponin T 2.85 ABS# (0-10) 03/17/24 12:27 NT-Pro-B Natriuret Pep 9123 pg/mL (0-450) H 03/17/24 10:28 Total Protein 6.9 g/dL (6.6-8.7) 03/17/24 10:28 Albumin 3.3 g/dL (3.5-5.2) L 03/17/24 10:28 Globulin 3.6 g/dL (1.3-4.6) 03/17/24 10:28 Micro: Microbiology 03/17/24 10:40 Blood Culture - Preliminary Blood SPECIMEN COLLECTED 03/17/24 10:28 Blood Culture - Preliminary Blood SPECIMEN COLLECTED A&P Assessment and plan (1) COPD (chronic obstructive pulmonary disease): COPD with acute exacerbation. Chronically on trilogy Ellipta and has breathing treatments as needed. To her knowledge has not had a breathing treatment recently. No recent steroid therapy. Believe anxiety is also playing a role in difficultly breathing. Has chronic hypercapnea and hypoxemia. Former smoker. (2) End stage renal disease on dialysis: Dialysis on Tuesdays, and Saturdays. Has not missed any dialysis sessions. (3) Heart failure with preserved ejection fraction: Chronically on bumetanide and metolazone. Currently with small to moderate bilateral pleural effusions which is not completely unexpected and dialysis patient a day out from her usual dialysis day. Similar appearance roughly 1 month ago with very slight increase per radiology. Could be impacting overall respiratory status. (4) Sleep apnea in adult: Noncompliant with Cpap/Bipap in outpatient setting due to not tolerating outpatient machine. (5) Anxiety and depression: Longstanding diagnosis has been on sertraline. Had been on alprazolam with some improvement though it was stopped on March 03. Given chronic hypercapnia benzodiazepines not optimal management. (6) Hypomagnesemia: Present on admission, chronically on oral magnesium SR but only daily dosing (7) Anemia: Anemia of chronic kidney disease with iron deficiency, stable hemoglobin (8) Coronary artery disease: [place] heart, wales artery with current complaints of substernal chest pain without any radiation or definitively associated symptoms. 2-hour troponin delta not elevated. Is on chronic aspirin therapy and beta-blockade and has as needed sublingual nitroglycerin. (9) Chronic atrial fibrillation: Chronically on amiodarone and beta-blockade, not on chronic anticoagulation I believe due to history of GI bleed and recurrent falls (10) Diabetes mellitus, type II: Insulin requiring with hyperglycemia, chronically on Tresiba and lispro (11) Orthostatic hypotension: Chronically on midodrine (12) Hypothyroidism: Acquired hypothyroidism on levothyroxine replacement Qualifiers: Hypothyroidism type: acquired Qualified Code(s): E03.9 - Hypothyroidism, unspecified (13) Seronegative rheumatoid arthritis of both hands: Chronically on weekly methotrexate with folate and B vitamin supplementation. Also has lidocaine patch, Tylenol and hydrocodone for pain management. (14) Sacral decubitus ulcer, stage II: Present on admission, previously stage III (15) History of stroke: Irregular pupil left eye with light sensitivity secondary to prior stroke. During course of evaluation patient requested not to be transferred to [place] in the event of an acute stroke as she has been in the past with previous strokes. Currently without acute neurological conditions noted. (16) Physical deconditioning: Nonambulatory at baseline Plan Chronically on PPI Chronically on several as needed medications Observation admission for now Breathing treatments including inhaled steroids Will continue systemic steroids though will need to watch blood sugars IV diuresis x 1 dose with plan to resume usual diuretics of budesonide and metolazone thereafter Monitor blood pressures closely after administration and has has had issues with low blood pressures in the past Nephrology consultation for usual dialysis Monitor I's and O's Continue BiPAP as needed See if respiratory can discern difference between machine used at [facility] versus here in terms of settings and oxygen flow Wean oxygen back to baseline 3 to 3.5 L by nasal cannula as able Can see if hydroxyzine provides any relief of acute anxiety, continue home sertraline Discussed with patient and family that given chronic hypercapnia, benzodiazepines are not optimal management due to risk of hypercapnia with associated decreased level of consciousness and even potential cessation of breathing Replace magnesium IV and increase magnesium SR to at least twice daily dosing Will check TIBC, adding iron replacement as indicated Continue serial cardiac enzymes and EKGs Sublingual nitroglycerin as needed Continue home aspirin and beta-blockade Continue home amiodarone Will substitute Lantus for Tresiba and add sliding scale insulin Monitor blood sugars Continue home midodrine Continue home levothyroxine Given chronic amiodarone use will go on and recheck TSH level Last dose of methotrexate was given on Thursday 03/15, currently holding otherwise Will continue home Tylenol and hydrocodone as needed Continue lidocaine patch as needed Wound care to sacral area along with frequent turning Continue home PPI Continue home MiraLAX Continue nystatin as needed Avoiding antibiotics currently given history of c diff this year Check UA secondary to complaints of vaginal discomfort VTE prophylaxis: SQ heparin, watching for any signs of bleeding GI Prophylaxis: PPI Antibiotics: none currently Pending studies: blood cultures, UA, am labs, 6hr trop Telemetry: ordered due to afib history and respiratory complaints Manzanares: not currently indicated, [facility] straight cath ordered for urinalysis Line(s): peripheral IVs Disposition plan: Return to [facility] anticipated Code Status: Full Code Supportive care otherwise Findings, concerns and plans were discussed with patient and family in the room and they were given an opportunity to ask questions Attestations Medical Necessity Statement*: Currently anticipate a stay less than two midnights in this 73-year-old presenting with difficulty breathing over the last week or so. Clinically appears to have an acute COPD exacerbation on chronic COPD plus a component of anxiety, plus or minus a component of CHF. Has known chronic bilateral pleural effusions with slight increase on today's imaging. Due for dialysis tomorrow. With breathing treatments, steroids and transient BiPAP already feeling better. Plans are as noted above. Will continue with more frequent breathing treatments than usual, systemic and inhaled steroids, BiPAP as needed, IV diuresis x 1 with monitoring of blood pressures and overall response along with other plans of care as noted above. Coding Level of Care Code Acute Code for Chg Fwd Diagnoses COPD (chronic obstructive pulmonary disease) J44.9 End stage renal disease on dialysis N18.6; Z99.2 Heart failure with preserved ejection fraction I50.30 Sleep apnea in adult G47.30 Anxiety and depression F41.9; F32.9 Hypomagnesemia E83.42 Anemia D64.9 Coronary artery disease involving wales coronary artery of wales heart without angina pectoris I25.10 Chronic atrial fibrillation I48.20 Diabetes mellitus, type II E11.9 Orthostatic hypotension I95.1 Acquired hypothyroidism E03.9 Hypothyroidism type: acquired Seronegative rheumatoid arthritis of both hands M06.041; M06.042 Sacral decubitus ulcer, stage II L89.152 History of stroke Z86.73 Physical deconditioning R53.81
--- NOTE | 2024-03-17 16:07 | ECG_ITS ---
[facility] Test Date: 2024-03-17 Pat Name: Myesha Parker Department: Room: 253 Gender: Female [employer]ipe [employer]: : 1950 Requested By: Aby Al Order Number: [id number] Wilbur MD: Victoriano White M.D. Measurements Intervals Elysian Rate: 80 P: 0 MS: 0 QRS: 265 QRSD: 173 T: 23 QT: 474 QTc: 550 Interpretive Statements ATRIAL FIBRILLATION RIGHT AXIS DEVIATION [QRS AXIS > 100] RIGHT BUNDLE BRANCH BLOCK [120+ ms QRS DURATION, UPRIGHT V1, 40+ ms S IN I/aVL/V4/V5/V6] POSSIBLE ANTERIOR MYOCARDIAL INFARCTION , PROBABLY OLD [30 ms Q WAVE IN V3/V4, OR R < 0.2 mV IN V4] Compared to ECG 03/17/2024 12:42:32 Atrial fibrillation no longer present Myocardial infarct finding still present Electronically Signed On 03-18-2024 8:31:45 CDT by Victoriano White M.D. [id number]
[2024-03-17] MEDS: heparin 5,000 unit/mL INJ 1 mL 5000 UNIT SUBCUT (16:48)
[2024-03-17] MEDS: FUROsemide 10 mg/mL SDV 4mL 40 MG IVP (16:48)
[2024-03-17 16:49] LABS: Troponin 5 6HR 49.46 ng/L (0-10)
[2024-03-17 16:52] LABS: Troponin 5 6HR Delta -1.54 ng/L (0-12)
[2024-03-17] MEDS: magnesium sulfate premix 2 GM/50 ML PIGGYBACK IV (16:58)
[2024-03-17] MEDS: magnesium lactate 84 mg Tablet PO (17:41)
[2024-03-17] MEDS: pantoprazole DR 40 mg Tablet PO (17:42)
[2024-03-17] MEDS: midodrine 5 mg TABLET PO (17:42)
[2024-03-17] MEDS: bumetanide 1 mg Tablet 2 MG PO (18:07)
[2024-03-17 18:16] LABS: Add Urine Microscopic? NO; Charge for UA Resulting for Rev
[2024-03-17 18:18] LABS: Bilirubin Urine Neg (Negative); Blood Urine Neg (Negative); Glucose Urine UA Norm (Normal); Ketones Urine Negative (Negative); Leukocyte Esterase Urine Negative (Negative); Nitrate Urine Negative (Negative); Protein Urine Neg (Negative); Urine Appearance Clear (CLEAR); Urine Color Yellow (Yellow); Urobilinogen Urine Norm (Negative); pH Urine 5 (5-7)
[2024-03-17] MEDS: budesonide 0.5 mg/2 mL Neb INHALATION (20:19)
[2024-03-17] MEDS: HYDROcodone-acetaminophen 5-325 mg Tablet 1 TAB PO (20:42)
[2024-03-17] MEDS: sertraline 100 mg Tablet PO (20:42)
[2024-03-17] MEDS: metoprolol tartrate 25 mg Tablet PO (20:42)
[2024-03-17] MEDS: hyDROXYzine 25 mg Capsule PO (20:42)
--- NOTE | 2024-03-17 22:01 | PC.NURSE ---
Patient POC Glucose currently 256.
[2024-03-17] MEDS: insulin lispro 100 unit/1 mL SUBCUT (22:06)
[2024-03-17] MEDS: insulin glargine 100 units/1 mL 10 UNIT SUBCUT (22:06)
[2024-03-17 22:14] LABS: Glucose Point of Care 168 mg/dL (70-110)
[2024-03-17 22:14] LABS: Glucose Point of Care 256 mg/dL (70-110)
--- NOTE | 2024-03-17 22:58 | ECG_ITS ---
[facility] Test Date: 2024-03-17 Pat Name: Myesha Parker Department: Room: 253 Gender: Female [employer]: : 1950 Requested By: Sangita Lockhart Order Number: [id number] Wilbur MD: Victoriano White M.D. Measurements Intervals Rowdy Rate: 86 P: 0 RI: 0 QRS: 261 QRSD: 173 T: 14 QT: 447 QTc: 535 Interpretive Statements ATRIAL FIBRILLATION RIGHT AXIS DEVIATION [QRS AXIS > 100] RIGHT BUNDLE BRANCH BLOCK [120+ ms QRS DURATION, UPRIGHT V1, 40+ ms S IN I/aVL/V4/V5/V6] POSSIBLE ANTERIOR MYOCARDIAL INFARCTION , OF INDETERMINATE AGE [30 ms Q WAVE IN V3/V4, OR R < 0.2 mV IN V4] Compared to ECG 03/17/2024 15:33:34 No significant changes Electronically Signed On 03-18-2024 8:30:27 CDT by Victoriano White M.D. [id number]
[2024-03-18] VITALS (19 sets, daily range): BP systolic 109–135; BP diastolic 61–74; PULSE 77–107; RESP 15–21; TEMP 36.3–37.2; O2SAT 96–100
[2024-03-18] MEDS: midodrine 5 mg TABLET PO ×3 (01:19→17:31)
--- NOTE | 2024-03-18 01:28 | PC.NURSE ---
Patient currently has lidocaine patch to lower back that is dated 03-17 with no time. Unable to located administration of this on oct. Patch removed at this time.
[2024-03-18] MEDS: ipratropium-albuterol 3 mL Neb INHALATION ×4 (01:30→20:06)
[2024-03-18 05:32] LABS: Blood Urea Nitrogen 35 mg/dL (8-23); Calcium 9.3 mg/dL (8.5-10.5); Carbon Dioxide 28 mmol/L (22-29); Chloride 97 mmol/L (98-107); Creatinine Clr Calc Pharmacy 26.4446; Glucose 141 mg/dL (65-115); Magnesium 2.2 mg/dL (1.7-2.3); Osmolality Calculated 294 mOsm/kg (285-295); Phosphorus 4.1 mg/dL (2.5-4.5); Sodium 137 mmol/L (136-145)
[2024-03-18 05:33] LABS: Iron 39 ug/dL (37-145); Percent Saturation 24.5 % (20-50); Total Iron Binding Capacity 159 mcg/dl; Unsaturated Iron Binding 120 ug/dL (112-347)
[2024-03-18 05:39] LABS: Anion Gap 16.4 (5-19); Potassium 4.4 mmol/L (3.5-5.1)
[2024-03-18 06:03] LABS: Lactate Dehydrogenase 218 U/L (135-214)
[2024-03-18 06:06] LABS: Thyroid Stimulating Hormone 1.01 uIU/mL (0.27-4.20)
[2024-03-18] MEDS: cholecalciferol (vitamin D3) 1,000 unit Tablet 1000 UNIT PO (06:24)
[2024-03-18] MEDS: levothyroxine 150 mcg Tablet PO (06:24)
[2024-03-18] MEDS: heparin 5,000 unit/mL INJ 1 mL 5000 UNIT SUBCUT ×2 (06:24→17:35)
[2024-03-18] MEDS: amiodarone 200 mg Tablet PO (06:24)
[2024-03-18 06:34] LABS: Glucose Point of Care 161 mg/dL (70-110)
[2024-03-18] MEDS: CALCIUM CARBONATE 600 MG TABLET PO (06:42)
[2024-03-18] MEDS: budesonide 0.5 mg/2 mL Neb INHALATION ×2 (08:12→20:06)
[2024-03-18] MEDS: polyethylene glycol 3350 Pkt 17 gm PO (08:54)
[2024-03-18] MEDS: aspirin 81 mg EC Tablet PO (08:54)
[2024-03-18] MEDS: magnesium lactate 84 mg Tablet PO ×2 (08:54→17:54)
[2024-03-18] MEDS: insulin lispro 100 unit/1 mL SUBCUT ×2 (08:54→20:51)
[2024-03-18] MEDS: predniSONE 20 mg Tablet 40 MG PO (08:54)
[2024-03-18] MEDS: folic acid 1 mg Tablet PO (08:54)
[2024-03-18] MEDS: pantoprazole DR 40 mg Tablet PO ×2 (08:54→17:31)
[2024-03-18] MEDS: lidocaine 5% Patch 1 PATCH TOPICAL ×2 (08:55→18:49)
[2024-03-18] MEDS: metoprolol tartrate 25 mg Tablet PO ×2 (08:56→20:51)
--- NOTE | 2024-03-18 09:03 | P.CONIM_ITS ---
Providers/Reason For Consult 2 Consulting Physician/Specialty*: kommana/Nephrology Reason for Consult*: ESRD Attending Physician: Opal Marie MD History of Present Illness History of Present Illness Myesha Parker is a 73 year old female patient is a 73-year-old female with multiple medical problems, with previous multiple admissions for volume overload, has past medical history of hypertension diabetes history of stroke A- fib coronary artery disease was sent to the emergency department due to progressively worsening shortness of breath patient also has a history of sleep apnea. On TTS schedule for dialysis. In the emergency department patient was noted to be hypoxic and was placed on BiPAP with 40% FiO2 blood pressures were stable, lab data significant for hemoglobin of 10.3 creatinine 1.9 chest x-ray showed cardiomegaly with mild pulmonary edema. Review of Systems 2 Narrative: Negative Medications/Allergies Home Medications Medication Instructions Recorded Confirmed Last Taken Type cholecalciferol (vitamin D3) 25 1,000 unit PO DAILY@10/12/19 03/17/24 03/17/24 History mcg (1,000 unit) tablet (Vitamin D3) nitroglycerin 0.4 mg sublingual 0.4 mg sublingual Q5M PRN Chest 02/08/21 03/17/24 Unknown Rx tablet (Nitrostat) Pain #30 tabs calcium carbonate (Calcium 600) 600 mg PO DAILY@06/27/21 03/17/24 03/17/24 History levothyroxine 150 mcg tablet 150 mcg PO DAILY@06/27/21 03/17/24 03/17/24 History (Euthyrox) pantoprazole 40 mg tablet,delayed 40 mg PO BID 09/13/21 03/17/24 03/17/24 History release glucose 4 gram chewable tablet 4 g PO PRN PRN Hypoglycemia 06/17/23 03/17/24 Unknown History fluticasone fur. 200 mcg-umeclid 1 inh inhalation DAILY #28 ea 06/20/23 03/17/24 03/17/24 Rx 62.5 mcg-vilant 25 mcg inhalat.powder (Trelegy Ellipta) insulin lispro 100 unit/mL See Rx Instructions .Route 08/17/23 03/17/24 03/17/24 Rx subcutaneous solution (Humalog .COMPLEX #10 mL U-100 Insulin) hydrocodone 5 mg-acetaminophen 325 1 tab PO TID PRN Pain 09/24/23 03/17/24 03/16/24 History mg tablet acetaminophen 325 mg tablet 650 mg PO Q6H PRN PAIN OR 09/30/23 03/17/24 01/04/24 History INCREASED TEMP amiodarone 200 mg tablet 200 mg PO DAILY@09/30/23 03/17/24 03/17/24 History bisacodyl 10 mg rectal suppository 10 mg RI DAILY PRN if no bm x3 days 09/30/23 03/17/24 11/22/23 History (Dulcolax (bisacodyl)) meclizine 25 mg tablet 25 mg PO TID PRN Nausea And 09/30/23 03/17/24 03/13/24 History Vomiting metolazone 2.5 mg tablet See Rx Instructions .Route .COMPLEX 09/30/23 03/17/24 03/15/24 History nystatin 100,000 unit/gram topical See Rx Instructions .Route .COMPLEX 09/30/23 03/17/24 Unknown History powder ([facility]) magnesium L-lactate 84 mg 84 mg PO DAILY@10/12/23 03/17/24 03/17/24 History tablet,extended release methotrexate sodium 2.5 mg tablet 6 mg PO Q7D 10/12/23 03/17/24 03/15/24 History pyridoxine (vitamin B6) 250 mg 500 mg PO DAILY@10/12/23 03/17/24 03/17/24 History tablet (Vitamin B-6) aspirin 81 mg tablet,delayed 81 mg PO DAILY #30 tabs 10/19/23 03/17/24 03/17/24 Rx release bumetanide 2 mg tablet See Rx Instructions .Route .COMPLEX 12/15/23 03/17/24 03/17/24 History folic acid 1 mg tablet 1 mg PO DAILY 01/09/24 03/17/24 03/17/24 History honey 80 % topical gel ([facility] See Rx Instructions .Route .COMPLEX 01/09/24 03/17/24 03/16/24 History (honey)) melatonin 1 mg tablet 1 mg PO BEDTIME 01/09/24 03/17/24 03/16/24 History insulin degludec 100 unit/mL (3 12 unit SUBCUT BEDTIME 02/15/24 03/17/24 03/16/24 History mL) subcutaneous pen (Tresiba FlexTouch U-100 insulin) menthol 0.44 %-zinc oxide 20.6 % See Rx Instructions .Route .COMPLEX 02/15/24 03/17/24 03/16/24 History topical ointment (Calmoseptine) metoprolol tartrate 25 mg tablet 25 mg PO BID 02/15/24 03/17/24 03/17/24 History midodrine 5 mg tablet 5 mg PO TID 02/15/24 03/17/24 03/16/24 History carica papaya 4 tab PO TID 03/17/24 03/17/24 03/17/24 History lidocaine 5 % topical patch 1 patch topical BID 03/17/24 03/17/24 03/17/24 History polyethylene glycol 3350 17 17 g PO DAILY 03/17/24 03/17/24 03/17/24 History gram/dose oral powder (Miralax) sertraline 100 mg tablet 100 mg PO BEDTIME 03/17/24 03/17/24 03/16/24 History Allergies Allergy/AdvReac Type Severity Reaction Status Date / Time adhesive tape Allergy rash Verified 01/07/24 09:18 cinnamon Allergy sinus Verified 01/07/24 09:18 codeine Allergy unknown Verified 01/07/24 09:18 cedar Allergy sinus Uncoded 01/07/24 09:18 pine Allergy sinus Uncoded 01/07/24 09:18 pork food Allergy ADR-Nausea Uncoded 01/07/24 09:18 Current Medications Generic Name Dose Route Start Last Admin Trade Name Freq PRN Reason Stop Dose Admin Hydrocodone Bitart/Acetaminophen 1 tab 03/17/24 16:16 03/17/24 20:42 Hydrocodone-Acetaminophen 5-325 Mg Tablet PO 1 tab TID PRN Administration modearte to severe Pain Albuterol/Ipratropium 3 ml 03/17/24 20:00 03/18/24 08:12 Ipratropium-Albuterol 3 Ml Neb INHALATION 3 ml Q6H.RESP JOCE Administration Amiodarone HCl 200 mg 03/18/24 07:00 03/18/24 06:24 Amiodarone 200 Mg Tablet PO 200 mg DAILY@07 JOCE Administration Budesonide 0.5 mg 03/17/24 20:00 03/18/24 08:12 Budesonide 0.5 Mg/2 Ml Neb INHALATION 0.5 mg BID.RESPIRATORY JOCE Administration Bumetanide 2 mg 03/17/24 19:00 03/17/24 18:07 Bumetanide 1 Mg Tablet PO 2 mg SuMoWeFr JOCE Administration Calcium Carbonate 600 mg 03/18/24 07:00 03/18/24 06:42 Calcium Carbonate 600 Mg Tablet PO 600 mg DAILY@07 JOCE Administration Heparin Sodium (Porcine) 5,000 unit 03/17/24 16:16 03/18/24 06:24 Heparin 5,000 Unit/Ml Inj 1 Ml SUBCUT 5,000 unit Q12H JOCE Administration Hydroxyzine Pamoate 25 mg 03/17/24 16:16 03/17/24 20:42 Hydroxyzine 25 Mg Capsule PO 25 mg TID PRN Administration ANXIETY Insulin Glargine 10 unit 03/17/24 21:00 03/17/24 22:06 Insulin Glargine 100 Units/1 Ml SUBCUT 10 unit BEDTIME [facility] Administration Insulin Human Lispro 0 unit 03/17/24 21:00 03/17/24 22:06 Insulin Lispro 100 Unit/1 Ml SUBCUT 3 unit BEDTIME [facility] Administration Protocol Insulin Human Lispro 0 unit 03/17/24 18:00 03/17/24 18:15 Insulin Lispro 100 Unit/1 Ml SUBCUT Not Given TIDWM [facility] Protocol Levothyroxine Sodium 150 mcg 03/18/24 06:00 03/18/24 06:24 Levothyroxine 150 Mcg Tablet PO 150 mcg DAILY@06 [facility] Administration Lidocaine 1 patch 03/17/24 18:00 03/17/24 17:45 Lidocaine 5% Patch TOPICAL Not Given BID [facility] Magnesium Lactate 84 mg 03/17/24 18:00 03/17/24 17:41 Magnesium Lactate 84 Mg Tablet PO 84 mg BID JOCE Administration Metoprolol Tartrate 25 mg 03/17/24 21:00 03/17/24 20:42 Metoprolol Tartrate 25 Mg Tablet PO 25 mg BID@0900,2100 [facility] Administration Midodrine 5 mg 03/17/24 18:00 03/18/24 01:19 Midodrine 5 Mg Tablet PO 5 mg Q8H JOCE Administration Pantoprazole Sodium 40 mg 03/17/24 18:00 03/17/24 17:[address] 40 Mg Tablet PO 40 mg BID JOCE Administration Sertraline HCl 100 mg 03/17/24 21:00 03/17/24 20:42 Sertraline 100 Mg Tablet PO 100 mg BEDTIME JOCE Administration Vitamin D 1,000 unit 03/18/24 07:00 03/18/24 06:24 Cholecalciferol (Vitamin D3) 1,000 Unit Tablet PO 1,000 unit DAILY@07 JOCE Administration PFSH Acute 2 PFSH: Medical History (Updated 03/17/24 @ 16:26 by Sangita Lockhart MD) History of cardiovascular stress test 09/2023 History of stroke Diabetes mellitus, type II Myasthenia gravis listed in [facility] records Amber albicans infection 2022 Clostridioides difficile diarrhea 12/18 Inflammatory arthritis Sleep apnea in adult noncompliant with CPAP/BiPAP in outpt setting (machine feels different) Colon polyp Gastric polyposis UGIB (upper gastrointestinal bleed) 2020 Chronic atrial fibrillation not on chronic anticoagulation due to recurrent falls and prior GI bleed NSTEMI (non-ST elevated myocardial infarction) Congestive heart failure (CHF) Orthostatic hypotension Chronic post-traumatic stress disorder (PTSD) Major depressive disorder, recurrent episode, moderate with anxious distress Duodenal ulcer due to bacteria 08/16 Coronary artery disease Chronic knee pain Chronic low back pain COVID-14 August 2020 Seronegative rheumatoid arthritis of both hands Osteoarthritis of knees, bilateral Fibromyalgia Lung nodule Unstable angina Urgency incontinence Left renal mass COPD (chronic obstructive pulmonary disease) Oxygen dependent, 3-3.5 L at baseline Hypothyroidism Liver cirrhosis Hyperlipidemia Hypertension Recurrent UTI Surgical History (Updated 03/17/24 @ 16:24 by Sangita Lockhart MD) S/P dialysis catheter insertion 07/2023 History of colonoscopy 06/23/22 History of esophagogastroduodenoscopy (EGD) 06/23/22 History of cholecystectomy History of thyroid surgery History of cardiac cath History of hysterectomy History of knee replacement Family History Other CAD (coronary artery disease) Cancer Denies family history of Anesthesia complication Bleeding disorder Social History (Updated 03/17/24 @ 15:03 by Sangita Lockhart MD) Smoking and tobacco/nicotine status: former use of tobacco/nicotine Quit status (tobacco/nicotine): has quit using Year quit tobacco: 2005 Second hand smoke exposure: No Alcohol intake: never Substance/Drug Use: never Adopted: No Caregiver/support person: No Lives independently: No Household members: spouse Housing: Long-Term Marital status: Current occupational status: retired Current gender identity: Female Vitals/I&O/Wt Last Vital Signs Temp 97.8 F 03/18/24 07:31 Pulse 88 03/18/24 08:16 Resp 18 03/18/24 08:00 BP 135/74 03/18/24 07:31 Pulse Ox 96 03/18/24 08:00 O2 Del Method Nasal Cannula 03/18/24 08:00 O2 Flow Rate 3 03/18/24 08:00 FiO2 30 03/18/24 03:28 03/17/24 03/18/24 03/18/24 22:59 06:59 14:59 Intake Total 150 / 150 236 / 236 Balance 150 / 150 236 / 236 Weight last 48 hrs Weight 95.85 kg Weight 95.424 kg Weight 86.183 kg Physical Exam 2 Narrative: awake , alert HEENT s1s2 rrr per report lungs clear no edema Data 03/17/24 10:28 03/19/24 04:35 Micro: Microbiology 03/17/24 10:40 Blood Culture - Preliminary Blood SPECIMEN COLLECTED 03/17/24 10:28 Blood Culture - Preliminary Blood SPECIMEN COLLECTED A&P Assessment and plan (1) End stage renal disease on dialysis: Plan 1. End-stage renal disease: On TTS schedule as outpatient, last dialysis was on Sunday, plan for dialysis today 2. History of hypertension: Resume home meds 3. Acute on chronic respiratory failure: With hypercapnia and hypoxia, likely multifactorial 4. Anemia: Hemoglobin 10.3 monitor 5. History of diabetes 6. History of atrial fibrillation Patient evaluated using audiovisual cart. Time spent 40 minutes. Consult Attestations 2 Medical Necessity Statement: per nano Coding Level of Care Code Acute Code for Chg Fwd Diagnoses End stage renal disease on dialysis N18.6; Z99.2
--- NOTE | 2024-03-18 09:04 | PC.CHAP ---
Pastoral Care Encounter/Spiritual Assessment Type of Contact [] Declined manager hematology visit [] Patient/Family/Request visit [] Outpatient visit [] Follow-up visit [] Physician referral [] Code/Alert [] Routine visit [] Staff referral [] Actively dying [] Patient sleeping [] Family support [] [] Out of room [] Palliative care [] [x] Receiving care in room [] Pre-surgical visit [] Trauma [] Long length of stay [] ICU visit [] Other: Relational/Emotional Strength [] Patient feels connected with others/family/visitors/staff [] Distress [] Loneliness/isolation [] Abandonment Spirituality of Patient [] Person of Joelle [] Attends Cheondoism of their Joelle [] Believes in Prayer [] Reads Bible or Episcopal materials [] There are Spiritual issues to be addressed Ad Taker Interventions [] Prayer [] Active listening [] Non-anxious presence [] Spiritual/emotional support [] Crisis/trauma care [] Spiritual counseling [] Bereavement support [] Provided bereavement packet [] Provided Bible/devotional materials [] Provided toy/stuffed animal, coloring book to patient or family member [] Provided Communion [] Anointing/[place] [] Salvation [] Completed spiritual assessment [] Other: Impact on Illness or Injury [] Angry [] Fearful [] Anxious [] Often cries [] Exhaustion [] Unable to work [] Unable to attend christianity [] Unable to walk/stand [] Unable to read [] Unable to drive [] Unable to eat/drink [] Unable to sleep [] Unable to be with family [] Patient intubated [] Other: Summary Time spent with patient
[2024-03-18 11:31] LABS: Glucose Point of Care 139 mg/dL (70-110)
[2024-03-18 12:24] LABS: Hepatitis B Core AB, Total Non-Reactive (Nonreactive); Hepatitis B Surface AB < 3.5 (11.5-1000); Hepatitis B Surface Antigen Non-Reactive (Nonreactive); Hepatitis C Virus Antibody Non-Reactive (Nonreactive)
--- NOTE | 2024-03-18 14:25 | PC.HD ---
Electronic consent for dialysis signed by patient. Prior to treatment, patient requested BiPap. RT called and BiPap brought to room and placed on patient. O2 sats 98%. Heparin 1000 units loading dose administered at 1358 per mechanical engineer's orders.
[2024-03-18] MEDS: albumin 12.5 GM/50 ML VIAL IV ×2 (14:39→15:08)
--- NOTE | 2024-03-18 15:47 | PM.PN ---
Subjective Subjective: States breathing is better today. Less dyspneic. Able to have a full conversation. Currently on supplemental O2 at baseline. Plan dialysis today. Medications: Reviewed: Yes Vitals/I&O/Wt Last Vital Signs Temp 98.1 F 03/18/24 14:23 Pulse 88 03/18/24 15:34 Resp 17 03/18/24 15:34 BP 109/64 03/18/24 15:34 Pulse Ox 100 03/18/24 15:34 O2 Del Method BiPAP 03/18/24 15:34 O2 Flow Rate 3 03/18/24 13:22 FiO2 30 03/18/24 03:28 03/18/24 03/18/24 03/18/24 06:59 14:59 22:59 Intake Total 336 / 336 100 / 436 Balance 336 / 336 100 / 436 Weight last 48 hrs Weight 95.85 kg Weight 95.424 kg Weight 86.183 kg Physical Exam Narrative: General: No acute distress, AO x3, chronically bedbound HEENT: PERRLA, pupils bilaterally equal and reactive, pallors not present Chest: Normal vesicular breath sounds, no added sounds, equal good air entry bilaterally CVS: S1-S2 regular, no murmurs, no tachycardia, no gallops, no rubs Abdomen: Soft, nontender, no organomegaly, bowel sounds present Neuro: No focal deficits, no facial deformity, AO x3, power 5/5 in all limbs Data 03/17/24 10:28 03/18/24 04:28 Micro: Microbiology 03/17/24 10:40 Blood Culture - Preliminary Blood NEGATIVE TO DATE 03/17/24 10:28 Blood Culture - Preliminary Blood NEGATIVE TO DATE A&P Assessment and plan (1) COPD (chronic obstructive pulmonary disease): COPD with acute exacerbation. Chronically on trilogy Ellipta and has breathing treatments as needed. To her knowledge has not had a breathing treatment recently. No recent steroid therapy. Believe anxiety is also playing a role in difficultly breathing. Has chronic hypercapnea and hypoxemia. Former smoker. (2) End stage renal disease on dialysis: Dialysis on Tuesdays, and Saturdays. Has not missed any dialysis sessions. (3) Heart failure with preserved ejection fraction: Chronically on bumetanide and metolazone. Currently with small to moderate bilateral pleural effusions which is not completely unexpected and dialysis patient a day out from her usual dialysis day. Similar appearance roughly 1 month ago with very slight increase per radiology. Could be impacting overall respiratory status. (4) Sleep apnea in adult: Noncompliant with Cpap/Bipap in outpatient setting due to not tolerating outpatient machine. (5) Anxiety and depression: Longstanding diagnosis has been on sertraline. Had been on alprazolam with some improvement though it was stopped on March 03. Given chronic hypercapnia benzodiazepines not optimal management. (6) Hypomagnesemia: Present on admission, chronically on oral magnesium SR but only daily dosing (7) Anemia: Anemia of chronic kidney disease with iron deficiency, stable hemoglobin (8) Coronary artery disease: [place] heart, [place] artery with current complaints of substernal chest pain without any radiation or definitively associated symptoms. 2-hour troponin delta not elevated. Is on chronic aspirin therapy and beta-blockade and has as needed sublingual nitroglycerin. (9) Chronic atrial fibrillation: Chronically on amiodarone and beta-blockade, not on chronic anticoagulation I believe due to history of GI bleed and recurrent falls (10) Diabetes mellitus, type II: Insulin requiring with hyperglycemia, chronically on Tresiba and lispro (11) Orthostatic hypotension: Chronically on midodrine (12) Hypothyroidism: Acquired hypothyroidism on levothyroxine replacement Qualifiers: Hypothyroidism type: acquired Qualified Code(s): E03.9 - Hypothyroidism, unspecified (13) Seronegative rheumatoid arthritis of both hands: Chronically on weekly methotrexate with folate and B vitamin supplementation. Also has lidocaine patch, Tylenol and hydrocodone for pain management. (14) Sacral decubitus ulcer, stage II: Present on admission, previously stage III (15) History of stroke: Irregular pupil left eye with light sensitivity secondary to prior stroke. During course of evaluation patient requested not to be transferred to [facility] in the event of an acute stroke as she has been in the past with previous strokes. Currently without acute neurological conditions noted. (16) Physical deconditioning: Nonambulatory at baseline Plan Chronically on PPI Chronically on several as needed medications Observation admission for now Breathing treatments including inhaled steroids Will continue systemic steroids though will need to watch blood sugars IV diuresis x 1 dose with plan to resume usual diuretics of budesonide and metolazone thereafter Monitor blood pressures closely after administration and has has had issues with low blood pressures in the past Nephrology consultation for usual dialysis Monitor I's and O's Continue BiPAP as needed See if respiratory can discern difference between machine used at [facility] versus here in terms of settings and oxygen flow Wean oxygen back to baseline 3 to 3.5 L by nasal cannula as able Can see if hydroxyzine provides any relief of acute anxiety, continue home sertraline Discussed with patient and family that given chronic hypercapnia, benzodiazepines are not optimal management due to risk of hypercapnia with associated decreased level of consciousness and even potential cessation of breathing Replace magnesium IV and increase magnesium SR to at least twice daily dosing Will check TIBC, adding iron replacement as indicated Continue serial cardiac enzymes and EKGs Sublingual nitroglycerin as needed Continue home aspirin and beta-blockade Continue home amiodarone Will substitute Lantus for Tresiba and add sliding scale insulin Monitor blood sugars Continue home midodrine Continue home levothyroxine Given chronic amiodarone use will go on and recheck TSH level Last dose of methotrexate was given on Thursday 03/15, currently holding otherwise Will continue home Tylenol and hydrocodone as needed Continue lidocaine patch as needed Wound care to sacral area along with frequent turning Continue home PPI Continue home MiraLAX Continue nystatin as needed Avoiding antibiotics currently given history of c diff this year Check UA secondary to complaints of vaginal discomfort VTE prophylaxis: SQ heparin, watching for any signs of bleeding GI Prophylaxis: PPI Antibiotics: none currently Pending studies: blood cultures, UA, am labs, 6hr trop Telemetry: ordered due to afib history and respiratory complaints [place]: not currently indicated, [facility] straight cath ordered for urinalysis Line(s): peripheral IVs Disposition plan: Return to [facility] anticipated Code Status: Full Code Supportive care otherwise Findings, concerns and plans were discussed with patient and family in the room and they were given an opportunity to ask questions March 18, 2024. Patient plan for hemodialysis today. Overall she is significantly feeling better today. Would have plan to discharge her after dialysis, however this is unlikely to be completed until later this evening, patient will likely not be able to discharge back to SNF today itself. Attestations Medical Necessity Statement*: Plan hemodialysis today Coding Level of Care Code Acute Code for Chg Fwd Diagnoses COPD (chronic obstructive pulmonary disease) J44.9 End stage renal disease on dialysis N18.6; Z99.2 Heart failure with preserved ejection fraction I50.30 Sleep apnea in adult G47.30 Anxiety and depression F41.9; F32.9 Hypomagnesemia E83.42 Anemia D64.9 Coronary artery disease involving [place] coronary artery of [place] heart without angina pectoris I25.10 Chronic atrial fibrillation I48.20 Diabetes mellitus, type II E11.9 Orthostatic hypotension I95.1 Acquired hypothyroidism E03.9 Hypothyroidism type: acquired Seronegative rheumatoid arthritis of both hands M06.041; M06.042 Sacral decubitus ulcer, stage II L89.152 History of stroke Z86.73 Physical deconditioning R53.81
[2024-03-18 16:33] LABS: Glucose Point of Care 138 mg/dL (70-110)
[2024-03-18] MEDS: epoetin alfa 10,000 unit/mL INJ 10000 UNIT IVP (16:54)
[2024-03-18] MEDS: ondansetron 2 mg/ML SDV 2 mL 4 MG IVP (20:25)
[2024-03-18 20:36] LABS: Glucose Point of Care 226 mg/dL (70-110)
[2024-03-18] MEDS: HYDROcodone-acetaminophen 5-325 mg Tablet 1 TAB PO (20:51)
[2024-03-18] MEDS: insulin glargine 100 units/1 mL 10 UNIT SUBCUT (20:51)
[2024-03-18] MEDS: hyDROXYzine 25 mg Capsule PO (20:51)
[2024-03-18] MEDS: sertraline 100 mg Tablet PO (20:51)
[2024-03-19] VITALS (9 sets, daily range): BP systolic 114–136; BP diastolic 66–79; PULSE 86–97; RESP 16–26; TEMP 36.6–36.8; O2SAT 94–98
[2024-03-19] MEDS: meclizine 25 mg tablet PO (02:00)
[2024-03-19] MEDS: midodrine 5 mg TABLET PO ×2 (02:00→08:18)
[2024-03-19] MEDS: ipratropium-albuterol 3 mL Neb INHALATION ×2 (02:25→08:33)
[2024-03-19] MEDS: CALCIUM CARBONATE 600 MG TABLET PO (05:12)
[2024-03-19] MEDS: levothyroxine 150 mcg Tablet PO (05:12)
[2024-03-19] MEDS: heparin 5,000 unit/mL INJ 1 mL 5000 UNIT SUBCUT (05:12)
[2024-03-19] MEDS: amiodarone 200 mg Tablet PO (05:12)
[2024-03-19] MEDS: cholecalciferol (vitamin D3) 1,000 unit Tablet 1000 UNIT PO (05:12)
[2024-03-19 05:18] LABS: Alanine Aminotransferase 12 U/L (0-33); Albumin Level 3.1 g/dL (3.5-5.2); Alkaline Phosphatase 128 U/L (35-105); Anion Gap 13.6 (5-19); Aspartate Amino Transferase 14 U/L (0-32); Blood Urea Nitrogen 24 mg/dL (8-23); Calcium 8.9 mg/dL (8.5-10.5); Carbon Dioxide 28 mmol/L (22-29); Chloride 101 mmol/L (98-107); Creatinine Clr Calc Pharmacy 34.1714; Globulin 3.2 g/dL (1.3-4.6); Glucose 107 mg/dL (65-115); Osmolality Calculated 293 mOsm/kg (285-295); Potassium 3.6 mmol/L (3.5-5.1); Sodium 139 mmol/L (136-145); Total Bilirubin 0.2 mg/dL (0.15-1.2); Total Protein 6.3 g/dL (6.6-8.7)
[2024-03-19 06:22] LABS: Glucose Point of Care 101 mg/dL (70-110)
--- NOTE | 2024-03-19 06:40 | PC.NURSE ---
Lidocaine patch removed from lower back approximately 5 am.
[2024-03-19] MEDS: lidocaine 5% Patch 1 PATCH TOPICAL (08:16)
[2024-03-19] MEDS: polyethylene glycol 3350 Pkt 17 gm PO (08:17)
[2024-03-19] MEDS: metoprolol tartrate 25 mg Tablet PO (08:17)
[2024-03-19] MEDS: bumetanide 1 mg Tablet 2 MG PO (08:17)
[2024-03-19] MEDS: predniSONE 20 mg Tablet 40 MG PO (08:17)
[2024-03-19] MEDS: magnesium lactate 84 mg Tablet PO (08:17)
[2024-03-19] MEDS: folic acid 1 mg Tablet PO (08:17)
[2024-03-19] MEDS: aspirin 81 mg EC Tablet PO (08:17)
[2024-03-19] MEDS: pantoprazole DR 40 mg Tablet PO (08:18)
[2024-03-19] MEDS: metOLazone 5 MG Tablet 2.5 MG PO (08:20)
[2024-03-19] MEDS: budesonide 0.5 mg/2 mL Neb INHALATION (08:33)
[2024-03-19 11:16] LABS: SARS Covid-2 Antigen negative (Negative)
[2024-03-19 11:42] LABS: Glucose Point of Care 153 mg/dL (70-110)
--- NOTE | 2024-03-19 11:45 | PC.NURSE ---
This nurse called report to SHEMAR Sierra at [facility] at [phone]. [facility] transport should be here shortly to picker pt to transport them to their facility.
[2024-03-19] MEDS: insulin lispro 100 unit/1 mL SUBCUT (12:08)
--- NOTE | 2024-03-19 12:25 | PC.NURSE ---
This nurse called patients , Gerardo, to inform him pt was just picked up from [facility] and heading back to their facility. Gerardo did not answer. Voicemail was left.
--- NOTE | 2024-03-19 17:53 | PM.DCS ---
Discharge Providers Date of Admission: 03/17/24 13:21 Date of Discharge: March 19, 2024 Attending Provider at Admission: Sangita Lockhart MD Attending Provider at Discharge: Opal Marie MD Diagnoses at Discharge Discharge Diagnosis (1) COPD (chronic obstructive pulmonary disease): Status: Chronic Permanent problem details: Oxygen dependent, 3-3.5 L at baseline (2) End stage renal disease on dialysis: Status: Chronic (3) Heart failure with preserved ejection fraction: Status: Chronic (4) Sleep apnea in adult: Status: Chronic Permanent problem details: noncompliant with CPAP/BiPAP in outpt setting (machine feels different) (5) Anxiety and depression: Status: Chronic (6) Hypomagnesemia: Status: Acute (7) Anemia: Status: Chronic (8) Coronary artery disease: Status: Chronic (9) Chronic atrial fibrillation: Status: Chronic Permanent problem details: not on chronic anticoagulation due to recurrent falls and prior GI bleed (10) Diabetes mellitus, type II: Status: Chronic (11) Orthostatic hypotension: Status: Chronic (12) Hypothyroidism: Status: Chronic Qualifiers: Hypothyroidism type: acquired Qualified Code(s): E03.9 - Hypothyroidism, unspecified (13) Seronegative rheumatoid arthritis of both hands: Status: Chronic (14) Sacral decubitus ulcer, stage II: Status: Chronic (15) History of stroke: Status: Chronic (16) Physical deconditioning: Status: Chronic Reason for Visit Reason for Visit: DIFF. BREATHING Hospital Course Hospital Course Myesha Parker is a 73 year old female who presented to the emergency room with difficulty breathing. She has been having progressively worsening difficulty breathing over the last week or so.She is nonambulatory at baseline. In talking with her she is on 3-3 and half liters of oxygen by nasal cannula at baseline. She does have sleep apnea but is not tolerant of either CPAP or BiPAP machine at the facility where she lives because it is different than what we utilize here. She was sent into the emergency room from senior living facility after being noted to be in significant respiratory distress. She had received nebulization treatments, steroids and routed to the ED and was placed on BiPAP therapy. Request was made for admission given the degree of symptoms at presentation. Overall clinical impression was that of COPD with acute exacerbation for which patient received prednisone orally and scheduled nebulization with DuoNeb and budesonide. She was also hypervolemic for which she received dialysis on March 18, 2024. She improved with these interventions is back to her baseline, saturating 95% on 3 L/min PVP. Able to have a full conversation. She is being discharged today in her baseline chronically ill but optimized condition. Physical Exam Narrative: General: No acute distress, AO x3 HEENT: PERRLA, pupils bilaterally equal and reactive, pallors not present Chest: Normal vesicular breath sounds, no added sounds, equal good air entry bilaterally CVS: S1-S2 regular, no murmurs, no tachycardia, no gallops, no rubs Abdomen: Soft, nontender, no organomegaly, bowel sounds present Neuro: No focal deficits, no facial deformity, AO x3, power 5/5 in all limbs Discharge Data Studies Completed and Pending Completed Studies During Hospitalization Category Date Time Status XR chest 1V portable [id number] Stat Exams 03/17/24 10:07 Completed Pending at discharge Category Date Time Status Blood Culture Stat Lab 03/17/24 10:40 Results Radiology Impressions Chest X-Ray 03/17/24 10:07 IMPRESSION: 1. Small to moderate RIGHT and small LEFT pleural effusions. 2. Mild pulmonary edema. 3. Cardiomegaly. Laboratory Results WBC 7.94 10^3/uL (3.29-11.43) 03/17/24 10:28 RBC 3.20 10^6/uL (3.85-5.65) L 03/17/24 10:28 Hgb 10.30 g/dL (11.27-16.99) L 03/17/24 10:28 Hct 34.1 % (36-47) L 03/17/24 10:28 MCV 106.6 fl (85-98) H 03/17/24 10:28 MCH 32.2 pg (27-33) 03/17/24 10:28 MCHC 30.2 g/dL (30-55) 03/17/24 10:28 RDW 18.6 % (12.1-15.1) H 03/17/24 10:28 Plt Count 265 10^3/cmm (157-399) 03/17/24 10:28 MPV 8.6 fL (7.4-10.4) 03/17/24 10:28 Neut % (Auto) 85.8 % 03/17/24 10:28 Lymph % (Auto) 4.3 % 03/17/24 10:28 Faulk % (Auto) 6.9 % 03/17/24 10:28 Eos % (Auto) 0.6 % 03/17/24 10:28 Baso % (Auto) 1.0 % 03/17/24 10:28 Neut # (Auto) 6.81 10^3/uL (1.8-7.7) 03/17/24 10:28 Lymph # (Auto) 0.3 10^3/uL (0.8-4.8) L 03/17/24 10:28 Faulk # (Auto) 0.6 10^3/uL (0.2-0.9) 03/17/24 10:28 Eos # (Auto) 0.1 10^3/uL (0.0-0.8) 03/17/24 10:28 Baso # (Auto) 0.1 10^3/uL (0.0-0.1) 03/17/24 10: Nucleated RBC % (auto) 0 % 03/17/24 10:28 Nucleated RBCs # 0.0 /100WBC 03/17/24 10:28 Specimen Type Arterial 03/17/24 10:10 Sample Site Radial, left 03/17/24 10:10 ABG pH 7.33 (7.35-7.45) L 03/17/24 10:10 ABG pCO2 59.9 mmHg (35-45) H 03/17/24 10:10 ABG pO2 66.2 mmHg (80.0-100.0) L 03/17/24 10:10 ABG PO2/FiO2 Ratio 165 03/17/24 10:10 ABG HCO3 31.5 mmol/L (22-26) H 03/17/24 10:10 ABG O2 Saturation 90.1 03/17/24 10:10 ABG Base Excess 4.4 mmol/L (-2.0-2.0) H 03/17/24 10:10 Memo Test Pos 03/17/24 10:10 A-a O2 Gradient 19.2 mmHg (5-10) H 03/17/24 10:10 Hematocrit 31.2 % (37-47) L 03/17/24 10:10 Hgb O2 Saturation 88.6 % (95-100) L 03/17/24 10:10 Carboxyhemoglobin 1.5 %THgb (0.4-20.1) 03/17/24 10:10 Methemoglobin 0.1 % (0.4-1.5) L 03/17/24 10:10 Total Hemoglobin 10.2 g/dL (12-16) L 03/17/24 10:10 Sodium 138.0 mmol/L (131-143) 03/17/24 10:10 Potassium 3.8 mmol/L (3.5-5.0) 03/17/24 10:10 Glucose 197.0 mg/dL (70-115) H 03/17/24 10:10 Ionized Calcium 1.3 mmol/L (1.1-1.4) 03/17/24 10:10 O2 Delivery Device Nc 03/17/24 10:10 O2 Liters/Min 5.0 % 03/17/24 10:10 FiO2 40.0 % 03/17/24 10:10 Chemistry Laboratory Technician ID Monro 03/17/24 10:10 Sodium 139 mmol/L (136-145) 03/19/24 04:35 Potassium 3.6 mmol/L (3.5-5.1) 03/19/24 04:35 Chloride 101 mmol/L (98-107) 03/19/24 04:35 Carbon Dioxide 28 mmol/L (22-29) 03/19/24 04:35 Anion Gap 13.6 (5-19) 03/19/24 04:35 BUN 24 mg/dL (8-23) H 03/19/24 04:35 Creatinine 1.6 mg/dL (0.5-0.9) H 03/19/24 04:35 GFR Calculation Not Reportable 03/19/24 04:35 Glucose 107 mg/dL (65-115) 03/19/24 04:35 POC Glucose 153 mg/dL (70-110) H 03/19/24 11:03 Calculated Osmolality 293 mOsm/kg (285-295) 03/19/24 04:35 Lactic Acid 1.5 mmol/L (0.5-2.2) 03/17/24 10:28 Calcium 8.9 mg/dL (8.5-10.5) 03/19/24 04:35 Phosphorus 4.1 mg/dL (2.5-4.5) 03/18/24 04:28 Magnesium 2.2 mg/dL (1.7-2.3) 03/18/24 04:28 Iron 39 ug/dL (37-145) 03/18/24 04:28 TIBC 159 mcg/dl 03/18/24 04:28 % Saturation 24.5 % (20-50) 03/18/24 04:28 Unsat Iron Binding 120 ug/dL (112-347) 03/18/24 04:28 Total Bilirubin 0.2 mg/dL (0.15-1.2) 03/19/24 04:35 AST 14 U/L (0-32) 03/19/24 04:35 ALT 12 U/L (0-33) 03/19/24 04:35 Alkaline Phosphatase 128 U/L (35-105) H 03/19/24 04:35 Lactate Dehydrogenase 218 U/L (135-214) H 03/18/24 04:28 Troponin T Baseline 51 ng/L (0-10) H 03/17/24 10:28 Troponin T 120 Minute 53.85 ng/L (0-10) H 03/17/24 12:27 Delta Troponin T 2.85 ABS# (0-10) 03/17/24 12:27 Troponin T Hi Sens 6Hr 49.46 ng/L (0-10) H 03/17/24 16:22 Troponin T Hi Sens 6Hr Delta -1.54 ng/L (0-12) L 03/17/24 16:22 NT-Pro-B Natriuret Pep 9123 pg/mL (0-450) H 03/17/24 10:28 Total Protein 6.3 g/dL (6.6-8.7) L 03/19/24 04:35 Albumin 3.1 g/dL (3.5-5.2) L 03/19/24 04:35 Globulin 3.2 g/dL (1.3-4.6) 03/19/24 04:35 TSH 1.01 uIU/mL (0.27-4.20) 03/18/24 04:28 Urine Color Yellow (Yellow) 03/17/24 17:42 Urine Appearance Clear (CLEAR) 03/17/24 17:42 Urine pH 5 (5-7) 07/22/24 17:42 Ur Specific [place] 1.010 (1.005-1.030) 03/17/24 17:42 Urine Protein Neg (Negative) 03/17/24 17:42 Urine Glucose (UA) Norm (Normal) 03/17/24 17:42 Urine Ketones Negative (Negative) 03/17/24 17:42 Urine Blood Neg (Negative) 03/17/24 17:42 Urine Nitrate Negative (Negative) 03/17/24 17:42 Urine Bilirubin Neg (Negative) 03/17/24 17:42 Urine Urobilinogen Norm mg/dL (Negative) 03/17/24 17:42 Ur Leukocyte Esterase Negative (Negative) 03/17/24 17:42 Hep Bs Antigen Non-reactive (Nonreactive) 03/18/24 11:15 Hep Bs Antibody < 3.5 (11.5-1000) L 03/18/24 11:15 Hep B Core Total Ab Non-reactive (Nonreactive) 03/18/24 11:15 Hepatitis C Antibody Non-reactive (Nonreactive) 03/18/24 11:15 SARS-CoV-2 Ag (Rapid) negative (Negative) 03/19/24 10:41 Vitals Last Vital Signs Temp 98.0 F 03/19/24 12:00 Pulse 87 03/19/24 12:00 Resp 19 H 03/19/24 12:00 BP 125/79 03/19/24 12:00 Pulse Ox 95 03/19/24 12:00 O2 Del Method Nasal Cannula 03/19/24 12:00 O2 Flow Rate 3.5 03/19/24 08:00 FiO2 30 03/19/24 08:00 Discharge Plan Discharge Patient Disposition: Xfer SNF Condition: Stable Prescriptions: Continued nitroglycerin [Nitrostat] 0.4 mg tablet, sublingual 0.4 mg SUBLINGUAL Q5M PRN (Reason: Chest Pain) Qty: 30 3RF Rx Instructions: MAX 3 DOSES PER EPISODE levothyroxine [Euthyrox] 150 mcg tablet 150 mcg PO DAILY@06 calcium carbonate [Calcium 600] 600 mg calcium (1,500 mg) tablet 600 mg PO DAILY@07 hydrocodone-acetaminophen 5-325 mg tablet 1 tab PO TID PRN (Reason: Pain) cholecalciferol (vitamin D3) [Vitamin D3] 25 mcg (1,000 unit) Tablet 1,000 unit PO DAILY@07 pantoprazole 40 mg tablet,delayed release (DR/EC) 40 mg PO BID glucose 4 gram tablet,chewable 4 g PO PRN PRN (Reason: Hypoglycemia) Trelegy Ellipta 200-62.5-25 mcg blister with device 1 inh INHALATION DAILY Qty: 28 0RF insulin lispro [Humalog U-100 Insulin] 100 unit/mL Solution See Rx Instructions .ROUTE .COMPLEX MDD 40 Qty: 10 0RF Rx Instructions: per sliding scale with meals 150-200=2 units 201-250=4 units 251-300=6 units 301-350=8 units 351-400=10 units 401-450=12 units metolazone 2.5 mg Tablet See Rx Instructions .ROUTE .COMPLEX Rx Instructions: 2.5 mg orally twice weekly ON SUNDAY AND SUNDAY acetaminophen 325 mg Tablet 650 mg PO Q6H PRN (Reason: PAIN OR INCREASED TEMP) amiodarone 200 mg tablet 200 mg PO DAILY@07 meclizine 25 mg tablet 25 mg PO TID PRN (Reason: Nausea And Vomiting) bisacodyl [Dulcolax (bisacodyl)] 10 mg Suppository 10 mg KS DAILY PRN (Reason: if no bm x3 days ) nystatin [Nyamyc] 100,000 unit/gram powder See Rx Instructions .ROUTE .COMPLEX Rx Instructions: as directed every shift as needed (apply between thighs and affected areas twice a day as needed) methotrexate sodium 2.5 mg Tablet 6 mg PO Q7D Hold Instructions: Resume on 01/29/24. Rx Instructions: ON SUNDAY pyridoxine (vitamin B6) [Vitamin B-6] 250 mg Tablet 500 mg PO DAILY@08 magnesium L-lactate 84 mg tablet extended release 84 mg PO DAILY@08 aspirin 81 mg Tablet,Delayed Release (Dr/Ec) 81 mg PO DAILY Qty: 30 0RF folic acid 1 mg tablet 1 mg PO DAILY melatonin 1 mg tablet 1 mg PO BEDTIME MediHoney (honey) 80 % gel See Rx Instructions .ROUTE .COMPLEX Rx Instructions: APPLY TOPICALLY TO LEFT SACRUM: CLEANSE WITH NS AND GAUZE, APPLY MEDI-HONEY TO WOUND BED AND COVER WITH BORDERED SILICONE DRESSING EVERY OTHER DAY AND NEEDED. menthol-zinc oxide [Calmoseptine] 0.44-20.6 % Ointment See Rx Instructions .ROUTE .COMPLEX Rx Instructions: CLEANSE AND APPLY TOPICALLY TO GREG AREA EVERY SHIFT FOR PREVENTATIVE. midodrine 5 mg tablet 5 mg PO TID metoprolol tartrate 25 mg tablet 25 mg PO BID Rx Instructions: HOLD IF BP SYSTOLIC LESS THAN 100 OR DIASTOLIC LESS THAN 60 insulin degludec [Tresiba FlexTouch U-100] 100 unit/mL (3 mL) insulin pen 12 unit SUBCUT BEDTIME bumetanide 2 mg tablet See Rx Instructions .ROUTE .COMPLEX Rx Instructions: TAKE 2 MG BY MOUTH TWICE DAILY ON SUNDAY, SUNDAY, SUNDAY, AND SUNDAY. sertraline 100 mg Tablet 100 mg PO BEDTIME carica papaya Tablet,Chewable 4 tab PO TID Rx Instructions: WITH MEALS lidocaine 5 % Adhesive Patch,Medicated 1 patch TOPICAL BID Rx Instructions: leave on most painful area for up to 12 hrs Miralax 17 gram/dose Powder 17 g PO DAILY Rx Instructions: MIX IN 8 OUNCES LIQUID AND DRINK ENTIRE LIQUID Discharge Orders: Discharge Order (Routine); Ordered 03/19/24 Ordered By: Opal Marie Referrals: [facility] [Outside] Discharge Diet: As Directed Discharge Activity: Resume usual activity Patient Instructions: Dialysis Diet (DC), Hemodialysis (DC), Opioid Safety Discharge Attestations Time Spent in Discharge Care*: less than 30 min Status at Discharge: Cognitive status at discharge: cognitively intact, Behavioral status at discharge: cooperative, Quality Metrics Clinical Quality Measures [ No reported AMI, CVA or VTE this stay] Coding Level of Care Code Acute Code for [facility] Fwd Diagnoses COPD (chronic obstructive pulmonary disease) J44.9 End stage renal disease on dialysis N18.6; Z99.2 Heart failure with preserved ejection fraction I50.30 Sleep apnea in adult G47.30 Anxiety and depression F41.9; F32.9 Hypomagnesemia E83.42 Anemia D64.9 Coronary artery disease involving manzanita coronary artery of manzanita heart without angina pectoris I25.10 Chronic atrial fibrillation I48.20 Diabetes mellitus, type II E11.9 Orthostatic hypotension I95.1 Acquired hypothyroidism E03.9 Hypothyroidism type: acquired Seronegative rheumatoid arthritis of both hands M06.041; M06.042 Sacral decubitus ulcer, stage II L89.152 History of stroke Z86.73 Physical deconditioning R53.81
== END 2024-03-19 12:29 | disposition skilled nursing facility (03) ==
LOC: ER 12:21 → MEDSURG 15:39
PROVIDERS: Hospitalist; Admitting Provider Hospitalist; Emergency Provider Emergency Medicine; Visit Provider Student in an Organized Health Care Education/Training Program
DX: J44.9 Chronic obstructive pulmonary disease, unspecified (principal); E11.22 Type 2 diabetes mellitus with diabetic chronic kidney disease; N18.6 End stage renal disease; D63.1 Anemia in chronic kidney disease; Z99.2 Dependence on renal dialysis; I50.30 Unspecified diastolic (congestive) heart failure; G47.30 Sleep apnea, unspecified; F41.9 Anxiety disorder, unspecified; F32.9 Major depressive disorder, single episode, unspecified; E83.42 Hypomagnesemia; I25.10 Atherosclerotic heart disease of native coronary artery without angina pectoris; I48.20 Chronic atrial fibrillation, unspecified; I95.1 Orthostatic hypotension; E03.9 Hypothyroidism, unspecified; M06.041 Rheumatoid arthritis without rheumatoid factor, right hand; M06.042 Rheumatoid arthritis without rheumatoid factor, left hand; L89.152 Pressure ulcer of sacral region, stage 2; Z86.73 Personal history of transient ischemic attack (TIA), and cerebral infarction without residual deficits; R53.81 Other malaise; Z99.81 Dependence on supplemental oxygen; Z91.199 Patient's noncompliance with other medical treatment and regimen due to unspecified reason; Z79.899 Other long term (current) drug therapy; J96.12 Chronic respiratory failure with hypercapnia; J96.11 Chronic respiratory failure with hypoxia; Z79.4 Long term (current) use of insulin; I25.2 Old myocardial infarction; Z87.891 Personal history of nicotine dependence
CPT/HCPCS: 36415; 36416; 36600; 51702; 71045; 80048; 80051; 80053; 81003; 82330; 82805; 82962; 83540; 83550; 83605; 83615; 83735; 83880; 84100; 84443; 84484; 85025; 86704; 86706; 86803; 87040; 87340; 87426; 90935; 93005; 94640; 94660; 94664; 96372; 96374; 96375; 96376; 99291; G0378; J1644; J1815; J1940; J2405; J2919; J3475; J7512; J7613; J7626; J8597; P9047; Q4081

== ENCOUNTER 2024-03-28 02:30 | Inpatient (IN) | payer MEDICARE, MEDICAID, SELFPAY ==
[2024-03-28] VITALS (80 sets, daily range): BP systolic 61–132; BP diastolic 38–90; PULSE 60–101; RESP 9–35; TEMP 36.3–37; O2SAT 86–100; BMI 32.9; BMI 34.7
--- NOTE | 2024-03-28 02:31 | ECG_ITS ---
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 Measurements Intervals Four [place] Rate: 99 P: 0 MO: 0 QRS: 267 QRSD: 162 T: 31 QT: 386 QTc: 497 Interpretive Statements UNCERTAIN REGULAR RHYTHM RIGHT AXIS DEVIATION [QRS AXIS > 100] RIGHT BUNDLE BRANCH BLOCK [120+ ms QRS DURATION, UPRIGHT V1, 40+ ms S IN I/aVL/V4/V5/V6] ST DEPRESSION, CONSIDER SUBENDOCARDIAL INJURY [0.1+ mV ST DEPRESSION] Compared to ECG 03/17/2024 23:18:07 ST (T wave) deviation now present Atrial fibrillation no longer present Myocardial infarct finding no longer present Electronically Signed On 03-28-2024 9:09:07 CDT by Victoriano White M.D. [id number]
--- NOTE | 2024-03-28 02:34 | XRR_ITS ---
PROCEDURE INFORMATION: Exam: XR Chest Exam date and time: 03/28/2024 3:00 AM Age: 73 years old Clinical indication: Shortness of breath; Prior surgery; Surgery date: 6+ months; Surgery type: Dialysis cath; Patient HX: EMS arrival for SOB and hypoxia. TECHNIQUE: Imaging protocol: Radiologic exam of the chest. Views: 1 view. COMPARISON: CT angio chest PE protcl [id number] 02/15/2024 2:15 PM FINDINGS: Tubes, catheters and devices: Central venous catheter seen on the right with its tip overlying the SVC. Lungs: Unremarkable. No consolidation. Pleural spaces: There are bilateral pleural effusions worse on the right than on the left. Heart/Mediastinum: The heart is enlarged. Vasculature: There are vascular congestive changes bilaterally. Bones/joints: Unremarkable. XR/XR chest 1V portable [id number] IMPRESSION: 1. Cardiomegaly with bilateral vascular congestion. 2. Bilateral pleural effusions worse on the right than on the left.
--- NOTE | 2024-03-28 02:38 | ED_ITS ---
HPI - SOB/Dyspnea 2 General: Chief Complaint: Shortness of Breath/Dyspnea Stated Complaint: resp distress Time Seen by Provider: 03/28/24 02:33 History of Present Illness: HPI Narrative: 73-year-old female presents with shortne ss of breath. [facility] due to her having shortness of breath. [facility] the [facility]. She has both COPD and is on dialysis. She did miss her dialysis yesterday. Patient was given IM dexamethasone albuterol and started on CPAP and route. Her initial oxygen was 65% was then approximately 88% upon arrival. Patient did report that she does not want to be intubated when I ask. Associated symptoms: Deny chest pain, fever(s), nausea, palpitations or vomiting Review of Systems 2 Const: Denies: fever(s) or chills Card: Denies: chest pain or palpitations Resp: Reports: dyspnea and wheezing GI: Denies: nausea or vomiting PFSH ED 2 PFSH: Medical History History of cardiovascular stress test 09/2023 History of stroke Diabetes mellitus, type II Myasthenia gravis listed in [facility] records Amber albicans infection 2022 Clostridioides difficile diarrhea 12/18 Inflammatory arthritis Sleep apnea in adult noncompliant with CPAP/BiPAP in outpt setting (machine feels different) Colon polyp Gastric polyposis UGIB (upper gastrointestinal bleed) 2020 Chronic atrial fibrillation not on chronic anticoagulation due to recurrent falls and prior GI bleed NSTEMI (non-ST elevated myocardial infarction) Congestive heart failure (CHF) Orthostatic hypotension Chronic post-traumatic stress disorder (PTSD) Major depressive disorder, recurrent episode, moderate with anxious distress Duodenal ulcer due to bacteria 08/16 Coronary artery disease Chronic knee pain Chronic low back pain COVID-14 August 2020 Seronegative rheumatoid arthritis of both hands Osteoarthritis of knees, bilateral Fibromyalgia Lung nodule Unstable angina Urgency incontinence Left renal mass COPD (chronic obstructive pulmonary disease) Oxygen dependent, 3-3.5 L at baseline Hypothyroidism Liver cirrhosis Hyperlipidemia Hypertension Recurrent UTI Surgical History S/P dialysis catheter insertion 07/2023 History of colonoscopy 06/23/22 History of esophagogastroduodenoscopy (EGD) 06/23/22 History of cholecystectomy History of thyroid surgery History of cardiac cath History of hysterectomy History of knee replacement Family History Other CAD (coronary artery disease) Cancer Denies family history of Anesthesia complication Bleeding disorder Social History Smoking and tobacco/nicotine status: former use of tobacco/nicotine Quit status (tobacco/nicotine): has quit using Year quit tobacco: 2005 Second hand smoke exposure: No Alcohol intake: never Substance/Drug Use: never Adopted: No Caregiver/support person: No Lives independently: No Household members: spouse Housing: [facility] Marital status: Current occupational status: retired Current gender identity: Female Physical Exam 2 Const: GENERAL APPEARANCE: other (BiPAP in place, no distress) Resp: AUSCULTATION: rhonchi and diminished lung sounds Cardio: COMMON NORMALS: regular rhythm RATE: tachycardic RHYTHM: regular rhythm Extremity: COMMON NORMALS: normal to inspection and capillary refill normal Psych: COMMON NORMALS: cooperative Course 2 Vital Signs: Vital signs: Vital Signs Temperature 98.3 F 03/28/24 02:30 Pulse Rate 71 03/28/24 06:00 Respiratory Rate 18 03/28/24 05:00 Blood Pressure 102/53 03/28/24 06:00 Pulse Oximetry 97 03/28/24 06:00 Oxygen Delivery Me thod BiPAP 03/28/24 06:00 Fraction of Inspir ed Oxygen 40 03/28/24 05:46 MDM - SOB/Dyspnea Medical Decision Making Patient diagnostic studies were ordered reviewed and interpreted by me. Patient has elevated white count 19.47 with elevated neutrophils. Patient's other labs are similar to her baseline. Chest x-ray shows some cardiomegaly with vascular congestion with pleural effusions with right greater than left. Patient was started on azithromycin and Rocephin with concerns of possible pneumonia with her respiratory symptoms. I discussed with hospitalist would like a CT chest prior to admission. Patient is currently on BiPAP. I did discuss with her intubation which she declined. Patient care to be turned over to oncoming physician awaiting CT results. EKGs were ordered reviewed that showed sinus rhythms with first-degree blocks. She had 2 EKGs that were similar ventricular rate 99 on initial 1 at 231 and 88 on the second 1 at 438. There is no acute ST elevation or changes noted on either 1. They are similar to her prior EKGs. Lab Data 03/28/24 03:43 03/28/24 02:48 Labs/Radiology: Radiology Impressions Chest X-Ray 03/28/24 02:34 IMPRESSION: 1. Cardiomegaly with bilateral vascular congestion. 2. Bilateral pleural effusions worse on the right than on the left. Laboratory Results WBC 19.47 10^3/uL (3.29-11.43) H 03/28/24 03:43 Corrected WBC Cancelled 03/28/24 02:48 RBC 3.07 10^6/uL (3.85-5.65) L 03/28/24 03:43 Hgb 9.90 g/dL (11.27-16.99) L 03/28/24 03:43 Hct 31.5 % (36-47) L 03/28/24 03:43 MCV 102.6 fl (85-98) H 03/28/24 03:43 MCH 32.2 pg (27-33) 03/28/24 03:43 MCHC 31.4 g/dL (30-55) 03/28/24 03:43 RDW 17.7 % (12.1-15.1) H 03/28/24 03:43 Plt Count 181 10^3/cmm (157-399) 03/28/24 03:43 MPV 9.0 fL (7.4-10.4) 03/28/24 03:43 Gran % Cancelled 03/28/24 02:48 Neut % (Auto) 96.9 % 03/28/24 03:43 Lymph % (Auto) 0.3 % 03/28/24 03:43 [place] % (Auto) 0.5 % 03/28/24 03:43 Eos % (Auto) 1.3 % 03/28/24 03:43 Baso % (Auto) 0.2 % 03/28/24 03:43 Neut # (Auto) 18.87 10^3/uL (1.8-7.7) H 03/28/24 03:43 Lymph # (Auto) 0.1 10^3/uL (0.8-4.8) L 03/28/24 03:43 [place] # (Auto) 0.1 10^3/uL (0.2-0.9) L 03/28/24 03:43 Eos # (Auto) 0.3 10^3/uL (0.0-0.8) 03/28/24 03:43 Baso # (Auto) 0.0 10^3/uL (0.0-0.1) 03/28/24 03:43 Absolute Gran (auto) Cancelled 03/28/24 02:48 Nucleated RBC % (auto) 0.3 % 03/28/24 03:43 Nucleated RBCs # 0.1 /100WBC 03/28/24 03:43 Specimen Type Arterial 03/28/24 05:55 Sample Site Radial, left 03/28/24 05:55 ABG pH 7.38 (7.35-7.45) 03/28/24 05:55 ABG pCO2 48.0 mmHg (35-45) H 03/28/24 05:55 ABG pO2 81.0 mmHg (80.0-100.0) 03/28/24 05:55 ABG PO2/FiO2 Ratio 202 03/28/24 05:55 ABG HCO3 28.1 mmol/L (22-26) H 03/28/24 05:55 ABG Base Excess 2.5 mmol/L (-2.0-2.0) H 03/28/24 05:55 Memo Test Pos 03/28/24 05:55 Hematocrit 29.5 % (37-47) L 03/28/24 05:55 Hgb O2 Saturation 89.6 % (95-100) L 03/28/24 02:35 Carboxyhemoglobin 1.5 %THgb (0.4-20.1) 03/28/24 02:35 Methemoglobin 0.5 % (0.4-1.5) 03/28/24 02:35 Total Hemoglobin 10.4 g/dL (12-16) L 03/28/24 02:35 O2 Delivery Device Bipap 03/28/24 05:55 FiO2 40.0 % 03/28/24 05:55 PEEP 8.0 cmH20 03/28/24 02:35 Web Publisher ID Ed 03/28/24 05:55 Sodium 138 mmol/L (136-145) 03/28/24 02:48 Potassium 3.9 mmol/L (3.5-5.1) 03/28/24 02:48 Chloride 98 mmol/L (98-107) 03/28/24 02:48 Carbon Dioxide 24 mmol/L (22-29) 03/28/24 02:48 Anion Gap 19.9 (5-19) H 03/28/24 02:48 BUN 47 mg/dL (8-23) H 03/28/24 02:48 Creatinine 2.4 mg/dL (0.5-0.9) H 03/28/24 02:48 GFR Calculation Not Reportable 03/28/24 02:48 Glucose 138 mg/dL (65-115) H 03/28/24 02:48 Calculated Osmolality 300 mOsm/kg (285-295) H 03/28/24 02:48 Calcium 9.0 mg/dL (8.5-10.5) 03/28/24 02:48 Magnesium 1.3 mg/dL (1.7-2.3) L 03/28/24 02:48 Total Bilirubin 1.4 mg/dL (0.15-1.2) H 03/28/24 02:48 AST 52 U/L (0-32) H 03/28/24 02:48 ALT 38 U/L (0-33) H 03/28/24 02:48 Alkaline Phosphatase 279 U/L (35-105) H 03/28/24 02:48 Troponin T Baseline 83 ng/L (0-10) H 03/28/24 02:48 Troponin T 120 Minute 93.13 ng/L (0-10) H 03/28/24 04:48 Delta Troponin T 10.13 ABS# (0-10) H* 03/28/24 04:48 NT-Pro-B Natriuret Pep 79285 pg/mL (0-450) H 03/28/24 02:48 Total Protein 5.9 g/dL (6.6-8.7) L 03/28/24 02:48 Albumin 3.0 g/dL (3.5-5.2) L 03/28/24 02:48 Globulin 2.9 g/dL (1.3-4.6) 03/28/24 02:48 SARS-CoV-2 Ag (Rapid) negative (Negative) 03/28/24 03:27 All radiology interpretation(s) finalized by discharge Discharge Plan Discharge Condition: Stable Prescriptions: No Action nitroglycerin [Nitrostat] 0.4 mg tablet, sublingual 0.4 mg SUBLINGUAL Q5M PRN (Reason: Chest Pain) Qty: 30 3RF Rx Instructions: MAX 3 DOSES PER EPISODE levothyroxine [Euthyrox] 150 mcg tablet 150 mcg PO DAILY@06 calcium carbonate [Calcium 600] 600 mg calcium (1,500 mg) tablet 600 mg PO DAILY@07 hydrocodone-acetaminophen 5-325 mg tablet 1 tab PO TID PRN (Reason: Pain) cholecalciferol (vitamin D3) [Vitamin D3] 25 mcg (1,000 unit) Tablet 1,000 unit PO DAILY@07 pantoprazole 40 mg tablet,delayed release (DR/EC) 40 mg PO BID glucose 4 gram tablet,chewable 4 g PO PRN PRN (Reason: Hypoglycemia) Trelegy Ellipta 200-62.5-25 mcg blister with device 1 inh INHALATION DAILY Qty: 28 0RF insulin lispro [Humalog U-100 Insulin] 100 unit/mL Solution See Rx Instructions .ROUTE .COMPLEX MDD 40 Qty: 10 0RF Rx Instructions: per sliding scale with meals 150-200=2 units 201-250=4 units 251-300=6 units 301-350=8 units 351-400=10 units 401-450=12 units metolazone 2.5 mg Tablet See Rx Instructions .ROUTE .COMPLEX Rx Instructions: 2.5 mg orally twice weekly ON SUNDAY AND SUNDAY acetaminophen 325 mg Tablet 650 mg PO Q6H PRN (Reason: PAIN OR INCREASED TEMP) amiodarone 200 mg tablet 200 mg PO DAILY@07 meclizine 25 mg tablet 25 mg PO TID PRN (Reason: Nausea And Vomiting) bisacodyl [Dulcolax (bisacodyl)] 10 mg Suppository 10 mg WA DAILY PRN (Reason: if no bm x3 days ) nystatin [Nyamyc] 100,000 unit/gram powder See Rx Instructions .ROUTE .COMPLEX Rx Instructions: as directed every shift as needed (apply between thighs and affected areas twice a day as needed) methotrexate sodium 2.5 mg Tablet 6 mg PO Q7D Hold Instructions: Resume on 01/29/24. Rx Instructions: ON SUNDAY pyridoxine (vitamin B6) [Vitamin B-6] 250 mg Tablet 500 mg PO DAILY@08 magnesium L-lactate 84 mg tablet extended release 84 mg PO DAILY@08 aspirin 81 mg Tablet,Delayed Release (Dr/Ec) 81 mg PO DAILY Qty: 30 0RF folic acid 1 mg tablet 1 mg PO DAILY melatonin 1 mg tablet 1 mg PO BEDTIME MediHoney (honey) 80 % gel See Rx Instructions .ROUTE .COMPLEX Rx Instructions: APPLY TOPICALLY TO LEFT SACRUM: CLEANSE WITH NS AND GAUZE, APPLY MEDI-HONEY TO WOUND BED AND COVER WITH BORDERED SILICONE DRESSING EVERY OTHER DAY AND NEEDED. menthol-zinc oxide [Calmoseptine] 0.44-20.6 % Ointment See Rx Instructions .ROUTE .COMPLEX Rx Instructions: CLEANSE AND APPLY TOPICALLY TO GREG AREA EVERY SHIFT FOR PREVENTATIVE. midodrine 5 mg tablet 5 mg PO TID metoprolol tartrate 25 mg tablet 25 mg PO BID Rx Instructions: HOLD IF BP SYSTOLIC LESS THAN 100 OR DIASTOLIC LESS THAN 60 insulin degludec [Tresiba FlexTouch U-100] 100 unit/mL (3 mL) insulin pen 12 unit SUBCUT BEDTIME bumetanide 2 mg tablet See Rx Instructions .ROUTE .COMPLEX Rx Instructions: TAKE 2 MG BY MOUTH TWICE DAILY ON SUNDAY, SUNDAY, SUNDAY, AND SUNDAY. sertraline 100 mg Tablet 100 mg PO BEDTIME carica papaya Tablet,Chewable 4 tab PO TID Rx Instructions: WITH MEALS lidocaine 5 % Adhesive Patch,Medicated 1 patch TOPICAL BID Rx Instructions: leave on most painful area for up to 12 hrs Miralax 17 gram/dose Powder 17 g PO DAILY Rx Instructions: MIX IN 8 OUNCES LIQUID AND DRINK ENTIRE LIQUID Sign Out Sign Out Data: Patient Sign Out occurred on 03/28/24 at 06:32. Patient's care was discussed, and care was transferred from Leighton Ndiaye DO to Kenrick Treviño DO. Coding Level of Care Code ED Manager Cardiac Cath for Dougie Samson
[2024-03-28 02:45] LABS: ABG PCO2 43.4 mmHg (35-45); ABG PH Result 7.39 (7.35-7.45); Arterial Blood Gas Hematocrit 31.7 % (37-47); Blood Gas Allen Test Pos; Blood Gas Sample Type Arterial; Carboxyhemoglobin 1.5 %THgb (0.4-20.1); HCO3 ABG 26.2 mmol/L (22-26); HGB O2 Sat 89.6 % (95-100); Methemoglobin 0.5 % (0.4-1.5); PO2 ABG 66.1 mmHg (80.0-100.0); Total Hemoglobin 10.4 g/dL (12-16)
[2024-03-28 02:47] LABS: Blood Gas Operator Identificat ED; Blood Gas Sample Site Radial, left; Oxygen Device BIPAP; PO2 FiO2 Ratio Arterial Blood 146
[2024-03-28] MEDS: ipratropium-albuterol 3 mL Neb INHALATION ×6 (02:55→23:58)
[2024-03-28 03:23] LABS: Troponin(5th) Baseline 83 ng/L (0-10)
[2024-03-28 03:26] LABS: Alanine Aminotransferase 38 U/L (0-33); Alkaline Phosphatase 279 U/L (35-105); Anion Gap 19.9 (5-19); Aspartate Amino Transferase 52 U/L (0-32); Blood Urea Nitrogen 47 mg/dL (8-23); Carbon Dioxide 24 mmol/L (22-29); Chloride 98 mmol/L (98-107); Creatinine Clr Calc Pharmacy 22.4211; Globulin 2.9 g/dL (1.3-4.6); Glucose 138 mg/dL (65-115); Magnesium 1.3 mg/dL (1.7-2.3); Osmolality Calculated 300 mOsm/kg (285-295); Potassium 3.9 mmol/L (3.5-5.1); Sodium 138 mmol/L (136-145); Total Bilirubin 1.4 mg/dL (0.15-1.2); Total Protein 5.9 g/dL (6.6-8.7)
[2024-03-28 03:32] LABS: NT Pro B Type Natriuretic Pept 30711 pg/mL (0-450)
[2024-03-28 03:47] LABS: SARS Covid-2 Antigen negative (Negative)
[2024-03-28 03:49] LABS: Basophils % 0.2 %; Eosinophils # 0.3 10^3/uL (0.0-0.8); Eosinophils % 1.3 %; Hematocrit 31.5 % (36-47); Lymphocytes # 0.1 10^3/uL (0.8-4.8); Lymphocytes % 0.3 %; Mean Corpuscular HGB Conc 31.4 g/dL (30-55); Mean Corpuscular Hemoglobin 32.2 pg (27-33); Mean Corpuscular Volume 102.6 fl (85-98); Monocytes # 0.1 10^3/uL (0.2-0.9); Monocytes % 0.5 %; Neutrophils # 18.87 10^3/uL (1.8-7.7); Neutrophils % 96.9 %; Nucleated Red Blood Cells # 0.1 /100WBC; Nucleated Red Blood Cells % 0.3 %; Platelet Count 181 10^3/cmm (157-399); Red Blood Count 3.07 10^6/uL (3.85-5.65); Red Cell Distribution Width 17.7 % (12.1-15.1); White Blood Count 19.47 10^3/uL (3.29-11.43)
--- NOTE | 2024-03-28 04:37 | ECG_ITS ---
[facility] Test Date: 2024-03-28 Pat Name: Myesha Parker Department: Room: Gender: Female Nailer Machine: : [id number] Requested By: Leighton Ndiaye Order Number: [id number] Wilbur MD: Victoriano White M.D. Measurements Intervals Coin Rate: 80 P: 49 AZ: 242 QRS: 264 QRSD: 172 T: 14 QT: 446 QTc: 516 Interpretive Statements SINUS RHYTHM WITH FIRST DEGREE AV BLOCK RIGHT AXIS DEVIATION [QRS AXIS > 100] RIGHT BUNDLE BRANCH BLOCK [120+ ms QRS DURATION, UPRIGHT V1, 40+ ms S IN I/aVL/V4/V5/V6] MODERATE T-WAVE ABNORMALITY, CONSIDER LATERAL ISCHEMIA [-0.1+ mV T-WAVE IN I/aVL/V5/V6] Compared to ECG 03/28/2024 02:31:39 First degree AV block now present T-wave abnormality now present Possible ischemia now present ST (T wave) deviation no longer present Electronically Signed On 03-28-2024 9:09:59 CDT by Victoriano White M.D. [id number]
[2024-03-28] MEDS: azithromycin 500 MG in sodium chloride 0.9% 250 ML 250 MG IV (04:53)
[2024-03-28] MEDS: cefTRIAXone 1,000 mg SDV 1000 MG IVP (04:53)
--- NOTE | 2024-03-28 04:59 | PC.NURSE ---
CALL RECEIVED FROM [facility] FOR PT CONDITION UPDATE. REPORT GIVEN TO FIDELIA THAT PT WOULD MOST LIKELY BE ADMITTED.
[2024-03-28 05:22] LABS: Troponin 5 2HR 93.13 ng/L (0-10)
[2024-03-28 05:25] LABS: Troponin 5 2HR Delta 10.13 ABS# (0-10)
[2024-03-28 06:06] LABS: ABG PH Result 7.38 (7.35-7.45); Arterial Blood Gas Hematocrit 29.5 % (37-47); Base Excess ABG 2.5 mmol/L (-2.0-2.0); Blood Gas Allen Test Pos; Blood Gas Sample Type Arterial; HCO3 ABG 28.1 mmol/L (22-26)
[2024-03-28 06:07] LABS: Blood Gas Operator Identificat ED; Blood Gas Sample Site Radial, left; Oxygen Device BIPAP; PO2 FiO2 Ratio Arterial Blood 202
--- NOTE | 2024-03-28 06:27 | CTR_ITS ---
PROCEDURE INFORMATION: Exam: CT Chest Without Contrast; Diagnostic Exam date and time: 03/28/2024 6:53 AM Age: 73 years old Clinical indication: Shortness of breath; Additional info: SOB, possible pneumonia TECHNIQUE: Imaging protocol: Diagnostic computed tomography of the chest without contrast. Radiation optimization: All CT scans at this facility use at least one of these dose optimization techniques: automated exposure control; mA and/or kV adjustment per patient size (includes targeted exams where dose is matched to clinical indication); or iterative reconstruction. COMPARISON: CT angio chest PE protcl [id number] 02/15/2024 2:15 PM RADIATION DOSE METRICS: Total DLP (mGy-cm): 590.44 FINDINGS: Tubes, catheters and devices: Central venous catheter is present with its tip within the SVC. Lungs: There is bilateral compressive atelectasis. There are bilateral infiltrates with septal thickening and peribronchial cuffing likely related to mild edema. There has been interval worsening in this regard when compared to prior exam. Pleural spaces: There is a moderate right-sided and smaller left-sided pleural effusion similar to minimally improved when compared to prior exam. Heart: The heart is enlarged. There is no evidence of a significant pericardial effusion. Lymph nodes: There are a few small as well as borderline enlarged mediastinal lymph nodes similar to that seen on prior exam. Vasculature: The thoracic aorta is normal in caliber. There is calcified plaque involving the aorta and coronary vessels. Liver: There is a nodular contour to the liver compatible with cirrhosis. Gallbladder and biliary ducts: The gallbladder is surgically absent. Bones/joints: Unremarkable. No acute fracture. Soft tissues: Unremarkable. CT/CT chest [facility] [id number] IMPRESSION: 1. Bilateral pleural effusions with compressive atelectasis worse on the right than on the left. Findings are similar to minimally improved when compared to prior exam. 2. Bilateral infiltrates slightly worse. Findings are most suggestive of pulmonary edema. An inflammatory cause is certainly possible. 3. Cardiomegaly.
--- NOTE | 2024-03-28 07:19 | PC.NURSE ---
report given to Rayna in ICU, no further questions at end of report. pt transported to ICU on ekg monitor tech by this nurse.
--- NOTE | 2024-03-28 07:25 | PC.NURSE ---
Pt arrives to ICu from Ed. Pt oriented but drowsy. IV in left arm already mostly migrated out on bed transfer.
--- OUTSIDE RECORDS SUMMARY | 2024-03-28 08:01 | XMS_ITS ---
Author Name Mony Hatfield Address [address] [place] [address] Phone [phone] Organization [facility], NA DOCUMENT DISCLAIMER Multiple document versions may exist, please be sure you review the latest version. The information in the [facility] Progress Note Document represents a providers documented clinical note containing certain health and medical information. It may not contain the complete medical history for the patient and should be independently verified. The represented time in the document is Eastern Time PROVIDER ROUNDING NOTE BASIC Patient:?Myesha?Elena,?1950,?73y,?F Dialysis?Location:?[place] Attending?[employer]:?[place] Service?Date:?02/19/2024 Service?Provider:?Mony?Liu,?SUPERVISOR PAINT I?met?face?to?face?with?the?patient?today. 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 She?has?developed?pressure?ulcers?on?her?backside:?Unclear&# 160;exactly?placement?or?severity.??Unfortunately?this?has?r esulted?in?her?being?unable?to?complete?treatments?due? to?pain:??for?assessment?today?and?report?of?staff&#160 ;she?has?been?ending?treatment?early?interiors?unable?to&#16 0;tolerate?therapy?time. ?she?has?been?educated?on?the?benefits?of?palliative&#1 60;care,?however?she?has?not?chosen?to?pursue?this?aven ue.??Set?with?patient?today?and?reviewed?the?comfort&#1 60;measures?and?supportive?measures?of?palliative?care?as?we ll?as?the?damage?of?decreasing?her?treatment?times?long ?term.??We'll?contact?social?worker?and?facility?where& #160;patient?resides?in?review?any?additional?steps?certain? for?supportive?care?measures?that?have?been?taken. Medications?and?labs?reviewed. LAST?HOSPITALIZATION Discharge?Diagnosis:?R06.03?Acute?respiratory?distress J15.9?Unspecified?bacterial?pneumonia E87.70?Fluid?overload,?unspecified Admission?Date?01/09/24 Discharge?Date?01/15/24 DIALYSIS?PRESCRIPTION ??IHD?3x?Week?Start?date:?01/31/24 ??Dialyzer:?180NRe?Optiflux ??BFR:?450 ??DFR:?Autoflow?1.5 ??Potassium:?3.0 ??Sodium:?138 ??EDW:?87.5 ??Duration:?3:15 ??Calcium:?2.5 ??Bicarb:?30 ??Rx?updated?on:?01/31/2024 TREATMENT?ASSESSMENT Comments:?BPs?today?lower. At?EDW;?no?weight?gains. Decrease?metoprolol?to?25?mg?BID. 02/19/24:?decrease?metoprolol?to?12.5?mg?BID BP?Sit?Pre ??02/19/2024:?113/77 ??02/16/2024:?102/62 ??02/14/2024:?113/67 BP?Sit?Post ??02/19/2024:?100/56 ??02/16/2024:?117/102 ??02/14/2024:?98/64 Tx?Duration ??02/19/2024:?2:34 ??02/16/2024:?3:19 ??02/14/2024:?1:48 Missed?Treatments 2?-?last?30?days 2?-?last?60?days 6/18?-?recent FLUID?ASSESSMENT Comments:?Weight?increasing?due?to?patient?inability?to?comp lete?treatment?due?to?pain?from?pressure?ulcers?on?her backside.?? EDW?(kg) ??02/19/2024:?87.5 ??02/16/2024:?87.5 ??02/14/2024:?87.5 Weight?Pre?(kg) ??02/19/2024:?89.8 ??02/16/2024:?88.7 ??02/14/2024:?87.2 Weight?Post?(kg) ??02/19/2024:?89.2 ??02/16/2024:?88.7 ??02/14/2024:?87.9 PWV?(kg) ??02/19/2024:?1.7 ??02/16/2024:?1.2 ??02/14/2024:?0.4 UF?Rate?(mL/kg/hr) ??02/19/2024:?2.6 ??02/16/2024:?0 ??02/14/2024:?-4.4 ADEQUACY?ASSESSMENT spKt/V,?URR ??01/31/2024:?1.55,?76.0 ??12/27/2023:?1.8,?81.0 ??11/29/2023:?1.78,?80.0 ?? Urine?Cr?Clearance ??09/11/2023:?30.5 ACCESS?ASSESSMENT ??Access?Type:?CVCatheter ??Access?SubType:?Tunneled ??Access?Status:?Active?(In?Use)?-?08/17/2023 ??Access?Location:?Chest ??Placed:?08/13/2023 ANEMIA?ASSESSMENT Comments:?On?IV?Iron?and?CARY?protocol. HGB,?TSAT ??02/14/2024:?9.8,?- ??02/07/2024:?11.0,?- ??01/31/2024:?10.8,?24.0 ?? Ferritin ??01/31/2024:?509.0 ??11/01/2023:?217.0 ??10/23/2023:?125.0 Mircera,?IVP?(mcg) ??02/05/2024:?100 ??01/24/2024:?150 ??12/27/2023:?150 Iron?Sucrose?(Venofer)?(mg) ??02/19/2024:?100 ??02/16/2024:?100 ??02/14/2024:?100 BMM?ASSESSMENT PTH,?Intact ??01/31/2024:?94.0 ??11/01/2023:?92.0 ??10/23/2023:?80.0 ?? Calcium,?Phosphorus ??01/31/2024:?9.1,?4.3 ??12/27/2023:?8.3,?3.8 ??11/29/2023:?8.8,?3.4 NUTRITION?ASSESSMENT Comments:?Continue?with?protein?supplements,?protein?focus.?&#160 ;Has?a?wound?on?her?bottom. Potassium,?Albumin ??01/31/2024:?3.6,?2.9 ??12/27/2023:?3.7,?2.8 ??11/29/2023:?3.6,?3.1 ?? eNPCR ??01/31/2024:?0.7 ??12/27/2023:?1.25 ??11/29/2023:?1.25 PHYSICAL?EXAM Comments:?Morbidly?obese Exam?Not?Performed. DIAGNOSIS Chief?Complaint:?N18.6?End?stage?renal?disease Patient?data?updated?02/19/2024?at?7:20?PM Signed?By:?Liu,?Mony,?SUPERVISOR PAINT??on?02/19/2024?7:24:48 PM END OF DOCUMENT
--- OUTSIDE RECORDS SUMMARY | 2024-03-28 08:01 | XMS_ITS ---
Author Name Unknown Organization [facility] Address [address] [place], [place] [id number] Care Team Providers Care Grades 1 Thru 6 Home Teacher Name Role Phone Davion Griggs MD Primary Care Provider Celestino Macario MD, Yonatan Candelario [phone] REASON FOR VISIT Patient no-showed office visit Encounters Encounter Location Date Provider Diagnosis [facility], [place] [address] [facility] [place], [place] [id number] 09/11/2023 Yonatan Macario Procedure and treatment not carried out because of patient's decision for unspecified reasons Z53.20 ASSESSMENTS Encounter Date Diagnosis Assessment Notes Treatment Notes Treatment Clinical Notes 09/11/2023 Procedure and treatment not carried out because of patient's decision for unspecified reasons (ICD-10 - Z53.20) PLAN OF TREATMENT No Information
--- OUTSIDE RECORDS SUMMARY | 2024-03-28 08:01 | XMS_ITS ---
Author Name Maria T Uriarte Address [address] [place] [id number] Phone [phone] Organization [facility], NA DOCUMENT DISCLAIMER Multiple document versions may exist, please be sure you review the latest version. The information in the [facility] Progress Note Document represents a providers documented clinical note containing certain health and medical information. It may not contain the complete medical history for the patient and should be independently verified. The represented time in the document is Eastern Time PROVIDER ROUNDING NOTE COMPREHENSIVE Patient:?Myesha?Elena,?1950,?73y,?F Dialysis?Location:?[facility] Attending?Neon Glass Bender:?Maria T?Chapito Service?Date:?01/01/2024 Service?Provider:?Maria T?Chapito,? I?met?face?to?face?with?the?patient?today. 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 these?episodes?and?it?is?easing?up .?Did ?discuss?end-of-life?measures?in?the?past.?She?is?think ing?about?this?but?no?decision?on?hospice?yet.?She&#160 ;reports?her??does?not?want?the?to?stop?dialysis?yet. She?has?a?wound?on?her?bottom?that?she?reports?is& #160;healing.?However,?it?is?painful.?Will?decrease?her?time ?to?3:15?to?see?if?this?helps.?Kt/V?has?been?1.8. Medications?and?labs?reviewed. LAST?HOSPITALIZATION Discharge?Diagnosis:?R19.7?Diarrhea,?unspecified Admission?Date?12/18/23 Discharge?Date?12/20/23 DIALYSIS?PRESCRIPTION ??IHD?3x?Week?Start?date:?12/25/23 ??Dialyzer:?180NRe?Optiflux ??BFR:?450 ??DFR:?Autoflow?1.5 ??Potassium:?3.0 ??Sodium:?138 ??EDW:?88 ??Duration:?3:30 ??Calcium:?2.5 ??Bicarb:?30 ??Rx?updated?on:?12/25/2023 TREATMENT?ASSESSMENT Comments:?Stable. BP?Sit?Pre ??12/29/2023:?110/55 ??12/27/2023:?104/56 ??12/25/2023:?100/48 BP?Sit?Post ??12/29/2023:?127/67 ??12/27/2023:?109/56 ??12/25/2023:?99/69 Tx?Duration ??12/29/2023:?2:42 ??12/27/2023:?3:30 ??12/25/2023:?2:11 Missed?Treatments 1?-?last?30?days 3?-?last?60?days /?-?recent FLUID?ASSESSMENT Fluid?status?acceptable.?Interdialytic?weight?gain?acceptable.?No ?changes?indicated.? EDW?(kg) ??12/29/2023:?88.0 ??12/27/2023:?88.0 ??12/25/2023:?91.2 Weight?Pre?(kg) ??12/29/2023:?90.6 ??12/27/2023:?88.4 ??12/25/2023:?87.2 Weight?Post?(kg) ??12/29/2023:?89.8 ??12/27/2023:?89.0 ??12/25/2023:?87.2 PWV?(kg) ??12/29/2023:?1.8 ??12/27/2023:?1.0 ??12/25/2023:?-4.0 UF?Rate?(mL/kg/hr) ??12/29/2023:?3.3 ??12/27/2023:?-1.9 ??12/25/2023:?0 ADEQUACY?ASSESSMENT Adequacy?target?met.?Prescription?compliance?acceptable.? spKt/V,?URR ??12/27/2023:?1.8,?81.0 ??11/29/2023:?1.78,?80.0 ??11/01/2023:?1.65,?77.0 ?? Urine?Cr?Clearance ??09/11/2023:?30.5 ACCESS?ASSESSMENT ??Access?Type:?CVCatheter ??Access?SubType:?Tunneled ??Access?Status:?Active?(In?Use)?-?08/17/2023 ??Access?Location:?Chest ??Placed:?08/13/2023 Vascular?access?reviewed. ANEMIA?ASSESSMENT Comments:?On?IV?Iron?and?CARY?protocol. HGB,?TSAT ??12/27/2023:?8.7,?19.0 ??12/22/2023:?9.7,?- ??12/13/2023:?10.7,?- ?? Ferritin ??11/01/2023:?217.0 ??10/23/2023:?125.0 ??08/23/2023:?155.0 Mircera,?IVP?(mcg) ??12/27/2023:?150 ??12/13/2023:?150 ??11/29/2023:?150 Iron?Sucrose?(Venofer)?(mg) ??11/20/2023:?100 ??11/17/2023:?100 ??11/15/2023:?100 BMM?ASSESSMENT PTH?low.?Calcium?controlled.?Phosphorus?controlled.?BMM?meds&#160 ;adherence?acceptable.?No?changes?indicated.? Phosphorus,?Calcium ??12/27/2023:?3.8,?8.3 ??11/29/2023:?3.4,?8.8 ??11/01/2023:?3.7,?9.0 ?? PTH,?Intact ??11/01/2023:?92.0 ??10/23/2023:?80.0 ??08/23/2023:?134.0 NUTRITION?ASSESSMENT Comments:?Continue?with?protein?supplements,?protein?focus.?&#160 ;Has?a?wound?on?her?bottom. Albumin,?Potassium ??12/27/2023:?2.8,?3.7 ??11/29/2023:?3.1,?3.6 ??11/01/2023:?3.3,?3.6 ?? eNPCR ??12/27/2023:?1.25 ??11/29/2023:?1.25 ??11/01/2023:?0.99 PHYSICAL?EXAM Comments:?Morbidly?obese Exam?Performed.?Vital?Signs?Reviewed.?EXT?-?No?edema.?EXT?-?No?ulcers. 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 Patient?data?updated?01/01/2024?at?1:58?PM Signed?By:?Chapito,?Maria T,???on?01/01/2024?2:00:31?PM END OF DOCUMENT
--- OUTSIDE RECORDS SUMMARY | 2024-03-28 08:01 | XMS_ITS ---
Author Name Maria T Uriarte Address [address] [place] [address] Phone [phone] Organization [facility], NA DOCUMENT DISCLAIMER Multiple document versions may exist, please be sure you review the latest version. The information in the [facility] Progress Note Document represents a providers documented clinical note containing certain health and medical information. It may not contain the complete medical history for the patient and should be independently verified. The represented time in the document is Eastern Time PROVIDER ROUNDING NOTE COMPREHENSIVE Patient:Julia?Elena,?1950,?73y,?F Dialysis?Location:?[place] Attending?Sole Stapler Welt:?Talita Service?Date:?02/05/2024 Service?Provider:?Maria T?Chapito,? I?met?face?to?face?with?the?patient?today. OVERVIEW The?patient?presented?with?ESRD?on?dialysis Primary?cause?of?renal?failure:?Type?2?diabetes?mellitus&#16 0;with?diabetic?chronic?kidney?disease Medications?and?labs?reviewed. LAST?HOSPITALIZATION Discharge?Diagnosis:?R06.03?Acute?respiratory?distress J15.9?Unspecified?bacterial?pneumonia E87.70?Fluid?overload,?unspecified Admission?Date?01/09/24 Discharge?Date?01/15/24 DIALYSIS?PRESCRIPTION ??IHD?3x?Week?Start?date:?01/31/24 ??Dialyzer:?180NRe?Optiflux ??BFR:?450 ??DFR:?Autoflow?1.5 ??Potassium:?3.0 ??Sodium:?138 ??EDW:?87.5 ??Duration:?3:15 ??Calcium:?2.5 ??Bicarb:?30 ??Rx?updated?on:?01/31/2024 TREATMENT?ASSESSMENT Comments:?BPs?today?lower. At?EDW;?no?weight?gains. Decrease?metoprolol?to?25?mg?BID.?Possibly?then?decrease 12.5?mg?BID. BP?Sit?Pre ??02/02/2024:?112/54 ??01/31/2024:?134/88 ??01/29/2024:?128/84 BP?Sit?Post ??02/02/2024:?116/76 ??01/31/2024:?118/83 ??01/29/2024:?115/88 Tx?Duration ??02/02/2024:?3:16 ??01/31/2024:?3:16 ??01/29/2024:?3:15 Missed?Treatments 1?-?last?30?days 2?-?last?60?days 5/?-?recent FLUID?ASSESSMENT Comments:?Will?evaluate?at?end?of?HD?today?and?increase?EDW. Fluid?status?acceptable.?Interdialytic?weight?gain?acceptable.? EDW?(kg) ??02/02/2024:?87.5 ??01/31/2024:?86.5 ??01/29/2024:?86.5 Weight?Pre?(kg) ??02/02/2024:?88.2 ??01/31/2024:?88.1 ??01/29/2024:?87.9 Weight?Post?(kg) ??02/02/2024:?87.6 ??01/31/2024:?87.5 ??01/29/2024:?87.3 PWV?(kg) ??02/02/2024:?0.1 ??01/31/2024:?1.0 ??01/29/2024:?0.8 UF?Rate?(mL/kg/hr) ??02/02/2024:?2.1 ??01/31/2024:?2.1 ??01/29/2024:?2.1 ADEQUACY?ASSESSMENT Adequacy?target?met.?Prescription?compliance?acceptable.? spKt/V,?URR ??01/31/2024:?1.55,?76.0 ??12/27/2023:?1.8,?81.0 ??11/29/2023:?1.78,?80.0 ?? Urine?Cr?Clearance ??09/11/2023:?30.5 ACCESS?ASSESSMENT ??Access?Type:?CVCatheter ??Access?SubType:?Tunneled ??Access?Status:?Active?(In?Use)?-?08/17/2023 ??Access?Location:?Chest ??Placed:?08/13/2023 Vascular?access?reviewed.?Current?access?is?permanent?and?fu nctioning?well.?Referral?made?for?access?revision/?intervention. ANEMIA?ASSESSMENT Comments:?On?IV?Iron?and?CARY?protocol. HGB,?TSAT ??01/31/2024:?10.8,?24.0 ??01/24/2024:?10.5,?- ??01/17/2024:?10.4,?- ?? Ferritin ??01/31/2024:?509.0 ??11/01/2023:?217.0 ??10/23/2023:?125.0 Mircera,?IVP?(mcg) ??01/24/2024:?150 ??12/27/2023:?150 ??12/13/2023:?150 Iron?Sucrose?(Venofer)?(mg) ??01/31/2024:?50 ??01/24/2024:?50 ??01/17/2024:?50 BMM?ASSESSMENT PTH?low.?Calcium?controlled.?Phosphorus?controlled.?BMM?meds&#160 ;adherence?acceptable.?No?changes?indicated.? PTH,?Intact ??01/31/2024:?94.0 ??11/01/2023:?92.0 ??10/23/2023:?80.0 ?? Calcium,?Phosphorus ??01/31/2024:?9.1,?4.3 ??12/27/2023:?8.3,?3.8 ??11/29/2023:?8.8,?3.4 NUTRITION?ASSESSMENT Comments:?Continue?with?protein?supplements,?protein?focus.?&#160 ;Has?a?wound?on?her?bottom. Potassium,?Albumin ??01/31/2024:?3.6,?2.9 ??12/27/2023:?3.7,?2.8 ??11/29/2023:?3.6,?3.1 ?? eNPCR ??01/31/2024:?0.7 ??12/27/2023:?1.25 ??11/29/2023:?1.25 PHYSICAL?EXAM Comments:?Morbidly?obese Exam?Performed.?Vital?Signs?Reviewed.?EXT?-?No?edema.?EXT?-?No?ulcers. 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 Patient?data?updated?02/05/2024?at?12:12?PM Signed?By:?Chapito,?Maria T,???on?02/05/2024?12:15:47?PM END OF DOCUMENT
--- OUTSIDE RECORDS SUMMARY | 2024-03-28 08:01 | XMS_ITS ---
Author Name Mony Hatfield Address [address] [place] [address] Phone [phone] Organization [facility], NA DOCUMENT DISCLAIMER Multiple document versions may exist, please be sure you review the latest version. The information in the [facility] Progress Note Document represents a providers documented clinical note containing certain health and medical information. It may not contain the complete medical history for the patient and should be independently verified. The represented time in the document is Eastern Time PROVIDER ROUNDING NOTE COMPREHENSIVE Patient:?Myesha?Elena,?1950,?73y,?F Dialysis?Location:?[place] Attending?Outbound Sales Advisor:?Talita Service?Date:?03/04/2024 Service?Provider:?Mony?Liu,?BEHAVIORAL HEALTH SPECIALIST I?met?face?to?face?with?the?patient?today. 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 She?has?developed?pressure?ulcers?on?her?backside:?Unclear&# 160;exactly?placement?or?severity.??Unfortunately?this?has?r esulted?in?her?being?unable?to?complete?treatments?due? to?pain:??for?assessment?today?and?report?of?staff&#160 ;she?has?been?ending?treatment?early?interiors?unable?to&#16 0;tolerate?therapy?time. Ongoing?struggles?regarding?the?above.? VSS,?seen?on?HD?machine.? Hgb?dropping,?on?CARY?and?iron,?will?review?with?LTC&#16 0;for?occult?stool?test?and?is?coccyx?wound?actively?bleeding.? Medications?and?labs?reviewed. LAST?HOSPITALIZATION Discharge?Diagnosis:?R06.03?Acute?respiratory?distress J15.9?Unspecified?bacterial?pneumonia E87.70?Fluid?overload,?unspecified Admission?Date?01/09/24 Discharge?Date?01/15/24 DIALYSIS?PRESCRIPTION ??IHD?3x?Week?Start?date:?02/21/24 ??Dialyzer:?180NRe?Optiflux ??BFR:?450 ??DFR:?Autoflow?1.5 ??Potassium:?3.0 ??Sodium:?138 ??EDW:?88 ??Duration:?3:15 ??Calcium:?2.5 ??Bicarb:?30 ??Rx?updated?on:?02/21/2024 TREATMENT?ASSESSMENT Comments:?BPs?today?lower. Decrease?metoprolol?to?25?mg?BID. 02/19/24:?decrease?metoprolol?to?12.5?mg?BID Blood?pressure?controlled.? BP?Sit?Pre ??03/01/2024:?108/57 ??02/28/2024:?112/66 ??02/26/2024:?116/69 BP?Sit?Post ??03/01/2024:?110/66 ??02/28/2024:?95/61 ??02/26/2024:?131/71 Tx?Duration ??03/01/2024:?3:18 ??02/28/2024:?3:16 ??02/26/2024:?3:19 Missed?Treatments 1?-?last?30?days 2?-?last?60?days 6/18?-?recent FLUID?ASSESSMENT Comments:?Weight?increasing?due?to?patient?inability?to?comp lete?treatment?due?to?pain?from?pressure?ulcers?on?her& #160;backside.?as?well?as?albumin?below?3 EDW?(kg) ??03/01/2024:?88.0 ??02/28/2024:?88.0 ??02/26/2024:?88.0 Weight?Pre?(kg) ??03/01/2024:?89.0 ??02/28/2024:?89.2 ??02/26/2024:?89.0 Weight?Post?(kg) ??03/01/2024:?87.7 ??02/28/2024:?87.8 ??02/26/2024:?88.0 PWV?(kg) ??03/01/2024:?-0.3 ??02/28/2024:?-0.2 ??02/26/2024:?0.0 UF?Rate?(mL/kg/hr) ??03/01/2024:?4.5 ??02/28/2024:?4.9 ??02/26/2024:?3.4 ADEQUACY?ASSESSMENT Adequacy?target?met.?Prescription?compliance?acceptable.? spKt/V,?URR ??02/28/2024:?1.76,?79.0 ??01/31/2024:?1.55,?76.0 ??12/27/2023:?1.8,?81.0 ?? Urine?Cr?Clearance ??09/11/2023:?30.5 ACCESS?ASSESSMENT ??Access?Type:?CVCatheter ??Access?SubType:?Tunneled ??Access?Status:?Active?(In?Use)?-?08/17/2023 ??Access?Location:?Chest ??Placed:?08/13/2023 Vascular?access?reviewed. ANEMIA?ASSESSMENT Comments:?On?IV?Iron?and?CARY?protocol. Assess?for?blood?loss?through?LTC,?occult?stools?to?be completed HGB,?TSAT ??02/28/2024:?8.5,?33.0 ??02/21/2024:?8.6,?- ??02/14/2024:?9.8,?- ?? Ferritin ??01/31/2024:?509.0 ??11/01/2023:?217.0 ??10/23/2023:?125.0 Mircera,?IVP?(mcg) ??02/21/2024:?150 ??02/05/2024:?100 ??01/24/2024:?150 Iron?Sucrose?(Venofer)?(mg) ??02/28/2024:?50 ??02/26/2024:?100 ??02/23/2024:?100 BMM?ASSESSMENT PTH,?Intact ??01/31/2024:?94.0 ??11/01/2023:?92.0 ??10/23/2023:?80.0 ?? Calcium,?Phosphorus ??02/28/2024:?8.7,?2.8 ??01/31/2024:?9.1,?4.3 ??12/27/2023:?8.3,?3.8 NUTRITION?ASSESSMENT Comments:?Continue?with?protein?supplements,?protein?focus.?&#160 ;Has?a?wound?on?her?bottom. Potassium?controlled.?Albumin?below?goal.?No?changes?indicated. Potassium,?Albumin ??02/28/2024:?4.3,?2.8 ??01/31/2024:?3.6,?2.9 ??12/27/2023:?3.7,?2.8 ?? eNPCR ??02/28/2024:?0.92 ??01/31/2024:?0.7 ??12/27/2023:?1.25 PHYSICAL?EXAM Comments:?Morbidly?obese Exam?Not?Performed. DIAGNOSIS Chief?Complaint:?N18.6?End?stage?renal?disease Patient?data?updated?03/04/2024?at?1:10?PM Signed?By:?Liu,?Mony,?BEHAVIORAL HEALTH SPECIALIST??on?03/04/2024?1:14:21 PM END OF DOCUMENT
--- OUTSIDE RECORDS SUMMARY | 2024-03-28 08:02 | XMS_ITS ---
Author Name Unknown Organization [facility] ALLERGIES AND ADVERSE REACTIONS No information ASSESSMENT No information CHIEF COMPLAINT No information Vital Signs Bpsitting Date Temperature Weight Height Spo2 Respiration Bmi Ti merecorded Pulse 126/82 2015 00:00: 00 98.8 276,3.20 5,5 91 22 45.96 08:20 77 107/61 2023 00:00: 00 97.2 194,16.0 0 null 96 22 null 08:27 90 128/76 2023 00:00: 00 98.1 195,16.0 0 null 96 18 null 13:56 68 115/97 2023 00:00: 00 97.6 215,16.0 0 null 96 18 null 07:56 110 122/64 2023 00:00: 00 97.5 194,0.00 null 99 18 null 09:11 69 134/64 2023 00:00: 00 98.1 195,16.0 0 null 96 18 null 08:06 73 106/58 2023 00:00: 00 97.6 215,16.0 0 null 94 18 null 09:27 60 148/80 2023 00:00: 00 97.6 215,16.0 0 null 93 19 null 12:09 89 106/68 2023 00:00: 00 97.5 215,16.0 0 null 96 18 null 13:40 91 155/60 2019 00:00: 00 98.3 241,0.00 5,5 96 18 40.1 08:20 76 123/69 2020 00:00: 00 97.6 214,3.01 5,5 97 20 35.64 08:20 78 128/80 2011 00:00: 00 97.4 269,0.00 5,6 95 20 44.08 08:19 56 142/74 2015 00:00: 00 98.9 275,8.00 5,5 null 16 45.84 08:19 68 119/72 2023 00:00: 00 97.7 209,0.00 null 100 17 null 12:44 82 127/68 2023 00:00: 00 98 197,0.00 null 96 20 null 09:04 65 127/58 2023 00:00: 00 98.8 211,16.0 0 null 90 20 null 08:51 102 116/80 2023 00:00: 00 98.8 195,16.0 0 null 99 18 null 08:26 93 130/64 2023 00:00: 00 97.4 215,16.0 0 null 93 20 null 12:12 89 101/75 2023 00:00: 00 96.8 215,16.0 0 null 93 16 null 11:45 104 155/68 2015 00:00: 00 97.6 275,0.00 5,5 null 20 45.76 08:19 65 132/80 2011 00:00: 00 97.9 271,0.00 5,6 90 18 44.41 08:19 75 110/76 2011 00:00: 00 98.2 262,0.00 5,6 91 18 42.93 08:19 71 151/91 2022 00:00: 00 97.6 null null 96 18 null 18:39 86 111/80 2023 00:00: 00 97.6 226,0.00 null 96 20 null 11:37 89 196/96 2023 00:00: 00 97.3 194,16.0 0 null 95 18 null 15:39 98 125/76 2023 00:00: 00 97.2 193,0.00 null 96 18 null 08:18 75 141/67 2023 00:00: 00 97.9 197,0.00 null 97 18 null 08:08 87 OBJECTIVE DATA No information PHYSICAL EXAMINATION No information TREATMENT PLAN No information PROBLEMS No information RESULTS No information REVIEW OF SYSTEMS No information SUBJECTIVE DATA No information MEDICATIONS No information
--- OUTSIDE RECORDS SUMMARY | 2024-03-28 08:02 | XMS_ITS ---
Author Name Unknown Organization [facility] ALLERGIES AND ADVERSE REACTIONS No information ASSESSMENT No information CHIEF COMPLAINT No information Vital Signs Bpsitting Date Temperature Weight Height Spo2 Respiration Bmi Fi eldcount Timerecorded Pulse 130/86 03/21 98.8 227,2.0 8 5,5 90 16 37.7 9 8 14:49:00 93 152/80 04/16 96.8 216,0 5,5 92 14 35.9 4 8 16:05:00 87 114/60 06/15 98.8 null 5,5 89 16 null 6 10:30:00 90 130/80 06/25 97.6 223,2.0 8 5,5 97 14 37.1 3 8 10:18:00 76 148/84 07/09 97.9 227,2.0 8 5,5 94 18 37.7 9 8 13:04:00 100 OBJECTIVE DATA No information PHYSICAL EXAMINATION No information TREATMENT PLAN No information PROBLEMS No information RESULTS No information REVIEW OF SYSTEMS No information SUBJECTIVE DATA No information MEDICATIONS No information
--- OUTSIDE RECORDS SUMMARY | 2024-03-28 08:02 | XMS_ITS ---
Author Name Unknown Organization [facility] Address [address] [place], [place] [id number] Care Team Providers Care Last Repairer Helper Name Role Phone Davion Griggs MD Primary Care Provider Celestino Macario MD, Yonatan Unavailable [phone] Cyndi Grady Unavailable [phone] ALLERGIES Allergen (clinical drug ingredient) Drug/Non Drug Allergy documented on EMR Reaction Allergy Type Onset Date Status cinnamon bark cinnamon (uncoded) Unknown Allergy Active pine (uncoded) Unknown Allergy Activ e vinyl tape (uncoded) Unknown Allergy Active codeine codeine stomach upset, dizziness, disorientation Drug Allergy Active REASON FOR VISIT Patient states she is here today for follow up {low back pain} MEDICATIONS Medication SIG (Take, Route, Frequency, Duration) Notes Start Date End Date Status Zinc 140 mg (as elemental zinc 50 mg) 1 tab(s) orally once a day for 30 day(s) Active vitamin E 100 intl units 1 cap orally on ce a day Active Vitamin D3 50 mcg 1 tab orally once a day Active Vitamin B12 1000 mcg 1 tab orally once a day Active Vitamin B2 100 mg 1 tab orally once a day Active triamcinolone topical 0.1% 1 ghislaine applied topically as directed Active Tums Chewy Bites 750 mg 1 tab chewed onc e a day, as needed Active Vitamin B6 100 mg 1 tab orally once a day Active sulfaSALAzine 500 mg 1 tab orally 2 time s a day Active pyRIDostigmine 60 mg 1/2 tab orally 2 ti mes a day Active Papaya Enzyme as directed Acti ve Pantothenic Acid 550 mg as directed Active [place]-3 1000 mg 1 cap orally once a day Active Oxygen 2 liters @ hs per nasal cannu la as directed Active mupirocin topical 2% 1 ghislaine applied topically 3 times a day Active nitroglycerin 0.4 mg 1 tab sublingually as directed Active pantoprazole 40 mg 1 tab orally 2 times a day Active methotrexate 2.5 mg as directed orally once a week Active Metoprolol Tartrate 100 mg 1 tab orally once a day Active MSM (methylsulphonylmethane) 1000 mg orally as directed Active loratadine 10 mg 1 tab orally once a day, as needed Active magnesium lactate 84 mg 1 tab orally 2 t imes a day Active ketoconazole topical 2% 1 ghislaine applied topically as directed Active levothyroxine 150 mcg (0.15 mg) 1 tab orally once a day Active insulin lispro 100 units/mL as directed subcutaneously Active lisinopril 40 mg 1 tab orally once a day Active loperamide 2 mg 1 cap orally every 4 hours Active Garlic 1 caplet orally once daily for 30 days Active hydrALAZINE 10 mg 1 tab orally 3 times a day Active hydrocortisone topical 2.5% 1 ghislaine applied topically as directed Active imiquimod topical 5% 1 ghislaine applied topically as directed Active furosemide 20 mg 1 tab orally once a day Active doxycycline hyclate 100 mg 1 cap(s) orally 2 times a day for 10 day(s) 03/20/2023 Active DULoxetine 60 mg 1 cap with 30 mg capsule orally once a day Active folic acid 1 mg 1 tab orally once a day Active ferrous gluconate 324 mg 1 tab orally on ce a day Active Cranberry Supplement as directed Active digoxin 125 mcg (0.125 mg) 1/2-1 tab orally as directed Active diphenhydrAMINE 25 mg 1 tab orally every 6 hours, as needed Active docusate sodium 100 mg 1 cap orally 2 ti mes a day Active Calcium 600+D 600 mg-20 mcg 1 tab orally 2 times a day Active Chlorpheniramine (Allergy) Active atorvastatin 80 mg 1 tab orally once a day Active black cohosh Active acetaminophen-hydrocodon e 325 mg-7.5 mg 1 tab orally Q4-6H prn severe pain (max 3/day; hold within 4H of planned sleep) for 30 day(s) Do not fill prior to 08/26/23. ICD-10: G89.29 Active albuterol 2.5 mg/3 mL (0.083%) 3 mL by nebulizer every 4 hours, as needed Active traMADol 50 mg 1 tab orally Q4H prn pain (max 4/day; hold within 4H of planned sleep) for 30 day(s) Do not fill prior to 08/10/23. ICD-10: G89.29 Active acetaminophen-hydrocodon e 325 mg-7.5 mg 1 tab po orally Q4-6H prn severe pain (max 3/day; hold within 4H of planned sleep) for 30 day(s) 03/19/2023 Active SOCIAL HISTORY Tobacco Use: Social History [...] former smoker When did you stop smoking? 2006 VITAL SIGNS Height 65 in 06/27/2023 Weight 223 lbs 06/27/2023 BMI 37.11 kg/m2 06/27/2023 Temperature 97.3 degrees Fahrenheit 06/27/20 23 Oximetry 92 % 06/27/2023 Patient reported weight Encounters Encounter Location Date Provider Diagnosis [facility] [id number] [place], [place] [id number] 06/27/2023 Cyndi Avendaño Vertebrogenic low ba ck pain M54.51 ; Other chronic pain G89.29 and Obstructive sleep apnea (adult) (pediatric) G47.33 ASSESSMENTS Encounter Date Diagnosis Assessment Notes Treatment Notes Treatment Clinical Notes 06/27/2023 Vertebrogenic low back pain (ICD-10 - M54.51) Chronic axial lumbosacral spine pain. 06/27/2023 Other chronic pain (ICD-10 - G89.29) Patient reports that taking her pain medication allows her to get to her many doctors appointments. Plan to continue oral opioid medication management. 06/27/2023 Obstructive sleep apnea (adult) (pediatric) (ICD-10 - G47.33) Patient reports she has a new BiPAP device to use with her oxygen nightly. 06/27/2023 Other Above prescript ions printed for fill in 07/2023 as patient has left over prescriptions and refills due to a 2 months stay in the hospital / rehab unit. PLAN OF TREATMENT Medication Medication Name Sig Start Date Stop Date Notes acetaminophen-hydrocodon e 325 mg-7.5 mg 1 tab orally Q4-6H prn severe pain (max 3/day; hold within 4H of planned sleep) for 30 day(s) Do not fill prior to 08/26/23. ICD-10: G89.29 traMADol 50 mg 1 tab orally Q4H prn pain (max 4/day; hold within 4H of planned sleep) for 30 day(s) Do not fill prior to 08/10/23. ICD-10: G89.29 Treatment Notes Assessment Notes Vertebrogenic low back pain Chronic axia l lumbosacral spine pain. Other chronic pain Patient reports that taking her pain medication allows her to get to her many doctors appointments. Plan to continue oral opioid medication management. Obstructive sleep apnea (adult) (pediatr ic) Patient reports she has a new BiPAP device to use with her oxygen nightly. Other Above prescriptions printed for fill in 07/2023 as patient has left over prescriptions and refills due to a 2 months stay in the hospital / rehab unit. Next Appt Details Follow Up: 3 month Rx visit. , Reason: History and Physical Notes * HPI (History of Present Illness) Category Sub-Category Detail Notes Lumbar Spine injury: 2 foot fall onto a concrete slab landing on back; multiple falls (most recent 03/2022) tingling/numbness in the BLE up to the mid [place] area pain in the bilateral low back. This pain is described as constant aching. This pain extends into the hips and legs. The back pain is aggravated by transferring in / out of wheelchair. This pain is somewhat alleviated with use of OTC topical agents and lying down radiation of pain previous surgery: weakness in the BLE Medications [place] (hydrocodone / acetaminoph en) 325 mg-7.5 mg, 1 tab po, orally, Q4-6H prn severe pain (max 3/day; hold within 4H of planned sleep), 30 day(s), 90, Refills 0. Notes: Prescriptions given (3-months) on 03/20/23. Patient reports good benefit, as evidenced by improved ability to get up and down and perform home exercises, with quantity 0 and 2 pinted prescriptions remaining. Last fill date: 04/03/23 tramadol (Ultram) 50 mg, 1 tab po, ora lly, Q4H prn pain (max 4/day; hold within 4H of planned sleep), 30 day(s), 120, Refills 1 (last prescribed 03/20/23). Patient reports good benefit, as evidenced by improved ability to get up and down and perform home exercises, with quantity 56 remaining and 1 refill. Last fill date: 04/03/23 Interventional Right SI joint local anesthetic injection: on 11/25/12 with great benefit Previous Therapy Previous therapy: TENS with josé luis efit; physical therapy for 7 weeks with no benefit; ice/heat therapy once every couple months with benefit; medication management by Dr. Lozano via [facility] pain clinic with benefit; OTC topical agents with some benefit Medication history: Flexeril 10 mg; bridget pentin 300 mg (1200 mg/day); [place] 5/325; Ultram 50 mg; [place] 7.5/325; tizanidine 4 mg Previous Imaging/Studies CT of the head and C-spine on 10/27/21; of the C-spine on 10/04/21, 08/02/21, 06/30/21 and 06/22/21; of the pelvis on 06/22/21; of the left hip, C-spine, T-spine and L-spine on 05/27/21; of the C-spine, T-spine and L-spine on 05/20/21; of the C-spine, T-spine and L-spine on 05/06/21; of the head, C-spine and L-spine on 03/23/21; of the C-spine on 11/02/20 Sleep study on 02/11/12 (bi-leve l titration report on 03/20/12) X-rays of the bilateral hip 10/27/21; of the left hip on 06/22/21; of the left hip and of the pelvis on 05/27/21; of the L-spine on 05/06/21; of the left hip on 12/22/20; of the chest on 07/26/11; of the right hand, C-spine, L-spine, pelvis and hips on 01/25/07 Non Compliance/Failure to Fo llow Treatment Agreement Abnormal chromatography / mass spectrometry results: on 04/17/22 (morphine) Physical Examination Category Sub-Category Detail Notes ENT Hearing: grossly intact Chest Shape and expansion: normal expa nsion, equal bilaterally, respirations even and unlabored; oxygen at 3 liters per minute via nasal canula Neurological Psychiatric: alert and conver haley Musculoskeletal Gait: presents in whee lchair Outcome Assessment: Findings:: Positive ?Care plan documented:: Yes - leandro levine assistance in home Dermatology Skin inspection: pink, warm, dry , and intact General General appearence: well groomed , well nourished Build: moderately obese Head: normocephalic Eyes Conjunctiva: without injectio n
--- OUTSIDE RECORDS SUMMARY | 2024-03-28 08:02 | XMS_ITS ---
Author Name Unknown Organization [facility] Address [address] [place], [place] [id number] Care Team Providers Care Senior Principal Architect Name Role Phone Davion Griggs MD Primary Care Provider Celestino Macario MD, Yonatan Unavailable [phone] ALLERGIES Allergen (clinical drug ingredient) Drug/Non Drug Allergy documented on EMR Reaction Allergy Type Onset Date Status cinnamon bark cinnamon (uncoded) Unknown Allergy Active pine (uncoded) Unknown Allergy Activ e vinyl tape (uncoded) Unknown Allergy Active codeine codeine stomach upset, dizziness, disorientation Drug Allergy Active REASON FOR VISIT Patient states she is here today for {}, Prescription visit, Fall, Unreported medication :09/05/23: hydrocodone-acetaminophen 5/325, #42, [address] Donavan Champagne, [address], [place] and filled at [facility] ([id number]), [address], [place].08/22/23: tramadol 50 mg, #56, [address] Donavan Champagne, [address], [place] and filled at [facility] ([id number]), [place]. (prob in [place]), BiPAP MEDICATIONS Medication SIG (Take, Route, Frequency, Duration) Notes Start Date End Date Status Pantothenic Acid 550 mg as directed Active pantoprazole 40 mg 1 tab orally 2 times a day Active Oxygen 2 liters @ hs per nasal cannu la as directed Active [place]-3 1000 mg 1 cap orally once a day Active nitroglycerin 0.4 mg 1 tab sublingually as directed Active MSM (methylsulphonylmethane) 1000 mg orally as directed Active Metoprolol Tartrate 100 mg 1 tab orally once a day Active methotrexate 2.5 mg as directed orally o nce a week Active magnesium lactate 84 mg 1 tab orally 2 t imes a day Active mupirocin topical 2% 1 ghislaine applied topic ally 3 times a day Active loratadine 10 mg 1 tab orally once a day, as needed Active loperamide 2 mg 1 cap orally every 4 hours Active lisinopril 40 mg 1 tab orally once a day Active levothyroxine 150 mcg (0.15 mg) 1 tab orally once a day Acti ve ketoconazole topical 2% 1 ghislaine applied to pically as directed Active insulin lispro 100 units/mL as directed subcutaneously Active imiquimod topical 5% 1 ghislaine applied topic ally as directed Active hydrocortisone topical 2.5% 1 ghislaine applie d topically as directed Active hydrALAZINE 10 mg 1 tab orally 3 times a day Active Garlic 1 caplet orally once daily for 30 days Active ferrous gluconate 324 mg 1 tab orally once a day Active DULoxetine 60 mg 1 cap with 30 mg cap carlitos orally once a day Active doxycycline hyclate 100 mg 1 cap(s) oral ly 2 times a day for 10 day(s) 03/20/2023 Active furosemide 20 mg 1 tab orally once a day Active folic acid 1 mg 1 tab orally once a day Active docusate sodium 100 mg 1 cap orally 2 ti mes a day Active diphenhydrAMINE 25 mg 1 tab orally every 6 hours, as needed Active digoxin 125 mcg (0.125 mg) 1/2-1 tab ora lly as directed Active Cranberry Supplement as directed Active Chlorpheniramine (Allergy) Active albuterol 2.5 mg/3 mL (0.083%) 3 mL by nebulizer every 4 hours, as needed Active acetaminophen-hydrocodone 325 mg-7.5 mg 1 tab orally Q4-6H prn severe pain (max 3/day; hold within 4H of planned sleep) Active Calcium 600+D 600 mg-20 mcg 1 tab orally 2 times a day Active black cohosh Active atorvastatin 80 mg 1 tab orally once a day Active traMADol 50 mg 1 tab orally Q4H prn pain (max 4/day; hold within 4H of planned sleep) Active Zinc 140 mg (as elemental zinc 50 mg) 1 tab(s) orally once a day for 30 day(s) Active vitamin E 100 intl units 1 cap orally once a day Active Vitamin D3 50 mcg 1 tab orally once a day Active Vitamin B6 100 mg 1 tab orally once a day Active triamcinolone topical 0.1% 1 ghislaine applied topically as directed Active sulfaSALAzine 500 mg 1 tab orally 2 time s a day Active Vitamin B2 100 mg 1 tab orally once a day Active Vitamin B12 1000 mcg 1 tab orally once a day Active Tums Chewy Bites 750 mg 1 tab chewed onc e a day, as needed Active pyRIDostigmine 60 mg 1/2 tab orally 2 ti mes a day Active Papaya Enzyme as directed Acti ve SOCIAL HISTORY Tobacco Use: Social History Observation [...] smoker When did you stop smoking? 2007 Encounters Encounter Location Date Provider Diagnosis [facility] [address] [place] [phone] 09/11/2023 Yonatan Macario Vertebrogenic low ba ck pain M54.51 ; Other chronic pain G89.29 and Obstructive sleep apnea (adult) (pediatric) G47.33 ASSESSMENTS Encounter Date Diagnosis Assessment Notes Treatment Notes Treatment Clinical Notes 09/11/2023 Vertebrogenic low back pain (ICD-10 - M54.51) Chronic axial lumbosacral spine pain. 09/11/2023 Other chronic pain (ICD-10 - G89.29) Patient reports that taking her pain medication allows her to get to her many doctors appointments. Plan to continue oral opioid medication management. 09/11/2023 Obstructive sleep apnea (adult) (pediatric) (ICD-10 - G47.33) Patient reports she has a new BiPAP device to use with her oxygen nightly. 09/11/2023 Other PLAN OF TREATMENT Medication Medication Name Sig Start Date Stop Date Notes acetaminophen-hydrocodone 32 5 mg-7.5 mg 1 tab orally Q4-6H prn severe pain (max 3/day; hold within 4H of planned sleep) traMADol 50 mg 1 tab orally Q4H prn pain (max 4/day; hold within 4H of planned sleep) Treatment Notes Assessment Notes Vertebrogenic low back pain Chronic axia l lumbosacral spine pain. Other chronic pain Patient reports that taking her pain medication allows her to get to her many doctors appointments. Plan to continue oral opioid medication management. Obstructive sleep apnea (adult) (pediatr ic) Patient reports she has a new BiPAP device to use with her oxygen nightly. History and Physical Notes * HPI (History [...] previous surgery: weakness in the BLE Medications [place] (hydrocodone / acetaminoph en) 325 mg-7.5 mg, 1 tab, orally, Q4-6H prn severe pain (max 3/day; hold within 4H of planned sleep), 30 day(s), 90, Refills 0. Notes: Prescription given (1) on 06/27/23. Patient reports * benefit, as evidenced by improved ability to *, with quantity * and * prescription(s) remaining Last fill date: * tramadol (Ultram) 50 mg, 1 tab, orally , Q4H prn pain (max 4/day; hold within 4H of planned sleep), 30 day(s), 120, Refills 0. Notes: Prescription given (1- month) on 06/27/23. Patient reports * benefit, as evidenced by improved ability to *, with quantity * remaining and * refills. Last fill date: * Interventional Right SI joint local anesthetic injection: on 11/25/12 with great benefit Previous Therapy Previous therapy: TENS with josé luis efit; physical therapy for 7 weeks with no benefit; ice/heat therapy once every couple months with benefit; medication management by Dr. Lozano via [facility] pain clinic with benefit; OTC topical agents with some benefit Medication history: Flexeril 10 mg; bridget pentin 300 mg (1200 mg/day); [place] 5/325; Ultram 50 mg; [place] 7.5/325; tizanidine 4 mg Previous Imaging/Studies CT [...] C-spine on 11/02/20 Sleep study on 02/11/12 (gonzález-leve l titration report on 03/20/12) X-rays of [...]
--- OUTSIDE RECORDS SUMMARY | 2024-03-28 08:02 | XMS_ITS | Patient Health Record ---
Author Name Unknown Organization [facility] Address [address] [place], [place] [id number] Care Team Providers Care Clay Hoister Name Role Phone Davion Griggs MD Primary Care Provider Celestino Macario MD, Yonatan Unavailable [phone] Cyndi Grady Unavailable [phone] ALLERGIES Allergen (clinical drug ingredient) Drug/Non Drug [...] per nasal cannu la as directed Active [place]-3 1000 mg 1 cap orally once a [...] Problem Sacroiliitis (720.2) Active confirmed Solitary sacroiliitis (871759033) Problem Low back pain (724.2) Active confirmed Low back pain (825528246) Problem LONG-TERM USE MEDS NEC (V58.69) Active confirmed Long-term drug therapy (814132688) r/o substance abuse Problem Anxiety State, other, specified: procedure related (300.09) Active confirmed Anxiety sta te (825628970) Problem Sleep apnea, obstructive (327.23) Active confirmed Obstructive sleep apnea syndrome (12625238) Problem Sacroiliitis, not elsewhere classified (M46.1) Active confirmed Solitary sacroiliitis (980332334) Problem Spondylosis without myelopathy or radiculopathy, lumbar region (M47.816) Active confirmed Lumbosacral spondylosis without myelopathy (86310405) Problem MCC (current) use of opiate analgesic (Z79.891) Active confirmed High risk drug monitoring status (341876099) Problem Obstructive sleep apnea (adult) (pediatric) (G47.33) Active confirmed Obstructive sleep apnea syndrome (23387064) Problem Other chronic pain (G89.29) Active confirmed Chronic pain (98453295) Problem Intervertebral disc disorders with radiculopathy, lumbar region (M51.16) Active confirmed Radiculopathy due to lumbar intervertebral disc disorder (714814320329913 ) Problem Dorsalgia, unspecified (M54.9) Active confirmed Backache (117303652) Problem Other long term care social worker (current) drug therapy (Z79.899) Active confirmed Long-term current use of drug therapy (937908126) Problem Vertebrogenic low back pain (M54.51) Active confirmed Pain in lumbar spine (353468834) VITAL SIGNS Temperature 97.3 degrees Fahrenheit 06/27/2023 Macie ent reported weight Oximetry 92 % 06/27/2023 Patient reporte d weight Height 65 in 06/27/2023 Patient reporte d weight Weight 223 lbs 06/27/2023 Patient reporte d weight BMI 37.11 kg/m2 06/27/2023 Patient reporte d weight Encounters Encounter Location Date [facility] [address] [place], [place] [id number] 06/27/2023 Cyndi Avendaño Vertebrogenic low ba ck pain M54.51 ; Other chronic pain G89.29 and Obstructive sleep apnea (adult) (pediatric) G47.33 [facility] [address] [place], [place] [id number] 09/11/2023 Yonatan Macario Vertebrogenic low ba ck pain M54.51 ; Other chronic pain G89.29 and Obstructive sleep apnea (adult) (pediatric) G47.33 [facility] [address] [place], [place] [phone] 09/11/2023 Yonatan Macario Procedure and treatment not [...] Insured Coverage Start Date Coverage End Date [facility] [employer] [address] [place] [phone] [id number] Myesha Parker Self - patient is the insured MEDICAL (GENERAL) HISTORY Medical History History ICD [...] Knee replacement, bilateral, 2006 Hysterectomy, 02/04/02 Angioplasty 2006 Cholecystectomy Right eye, 2019 Hospitalization History Reason Date(Month/Year) pneumonia, 2011, 2013, 2016 congestive heart failure, 2011, 2015 Stroke, treated at [facility], 04/18/23-06/01/23 Respiratory illness, treated at [facility], 2022
--- NOTE | 2024-03-28 08:35 | ECG_ITS ---
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 Measurements Intervals [place] Rate: 70 P: 268 [place]: 185 QRS: -74 QRSD: 170 T: -31 QT: 458 QTc: 495 Interpretive Statements SINUS RHYTHM RIGHT BUNDLE BRANCH BLOCK [120+ ms QRS DURATION, UPRIGHT V1, 40+ ms S IN I/aVL/V4/V5/V6] LEFT ANTERIOR FASCICULAR BLOCK [QRS AXIS <= -45, QR IN I, RS IN II] MODERATE T-WAVE ABNORMALITY, CONSIDER LATERAL ISCHEMIA [-0.1+ mV T-WAVE IN I/aVL/V5/V6] Compared to ECG 03/28/2024 04:37:56 Left anterior fascicular block now present First degree AV block no longer present Right-axis deviation no longer present T-wave abnormality still present Possible ischemia still present Electronically Signed On 03-28-2024 9:09:57 CDT by Victoriano White M.D. [id number]
--- NOTE | 2024-03-28 08:39 | P.HP_ITS ---
Providers/Chief Complaint 2 Admitting Physician: Bayron Browne MD Chief Complaint: resp distress History of Present Illness Myesha Parker is a 73 year old female resident of [facility]dc who presents to the hospital with respiratory failure. I discussed her case with her , the ER physician, as well as the patient. The patient could not give good history as she was on BiPAP. From the nursing facility, she apparently had a decreased blood pressure yesterday and was not feeling good. She missed dialysis. She typically gets this on Sunday and Sunday. She was not eating and drinking well. Earlier this morning her oxygen saturation was lower than usual, on her chronic 3-1/2 L per nasal cannula. They increased her oxygen but secondary to her respiratory distress with low oxygen level she was sent to the emergency department for evaluation. They reports she frequently has low blood pressure even when she is feeling well, and that midodrine is given for this. She was supposed to have dialysis yesterday, but secondary to her low blood pressure it was recommended she not go. Patient has a litany of past medical problems the biggest of which are end-stage renal disease, recent hospitalization with discharge on 03/19, chronic respiratory failure on oxygen, COPD, history of ESBL and MRSA, inflammatory arthritis on methotrexate. In the emergency department, she received some Rocephin, Zithromax and was placed on BiPAP. Upon my evaluation I have ordered a urinalysis, cortisol level, supplemented her low magnesium, obtained a blood culture and urine culture, and secondary to past history of ordered vancomycin and meropenem for her antibiotics. Review of Systems 2 General: Reports: ROS unobtainable due to medical condition (Unable to obtain adequately is on BiPAP.) Medications/Allergies Home Medications Medication Instructions Recorded Confirmed Last Taken Type cholecalciferol (vitamin D3) 25 1,000 unit PO DAILY@10/12/19 03/28/24 03/27/24 History mcg (1,000 unit) tablet (Vitamin D3) nitroglycerin 0.4 mg sublingual 0.4 mg sublingual Q5M PRN Chest 02/08/21 03/28/24 Unknown Rx tablet (Nitrostat) Pain #30 tabs calcium carbonate (Calcium 600) 600 mg PO DAILY@06/27/21 03/28/24 03/27/24 History levothyroxine 150 mcg tablet 150 mcg PO DAILY@06 06/27/21 03/28/24 03/27/24 History (Euthyrox) pantoprazole 40 mg tablet,delayed 40 mg PO BID 09/13/21 03/28/24 03/27/24 History release glucose 4 gram chewable tablet 4 g PO PRN PRN Hypoglycemia 06/17/23 03/28/24 Unknown History fluticasone fur. 200 mcg-umeclid 1 inh inhalation DAILY #28 ea 06/20/23 03/28/24 03/27/24 Rx 62.5 mcg-vilant 25 mcg inhalat.powder (Trelegy Ellipta) insulin lispro 100 unit/mL See Rx Instructions .Route 08/17/23 03/28/24 03/27/24 Rx subcutaneous solution (Humalog .COMPLEX #10 mL U-100 Insulin) hydrocodone 5 mg-acetaminophen 325 1 tab PO TID PRN Pain 09/24/23 03/28/24 03/26/24 History mg tablet acetaminophen 325 mg tablet 650 mg PO Q6H PRN PAIN OR 09/30/23 03/28/24 01/04/24 History INCREASED TEMP amiodarone 200 mg tablet 200 mg PO DAILY@09/30/23 03/28/24 03/27/24 History bisacodyl 10 mg rectal suppository 10 mg [place] DAILY PRN if no bm x3 days 09/30/23 03/28/24 11/22/23 History (Dulcolax (bisacodyl)) meclizine 25 mg tablet 25 mg PO TID PRN Nausea And 09/30/23 03/28/24 03/24/24 History Vomiting metolazone 2.5 mg tablet See Rx Instructions .Route .COMPLEX 09/30/23 03/28/24 03/26/24 History nystatin 100,000 unit/gram topical See Rx Instructions .Route .COMPLEX 09/30/23 03/28/24 Unknown History powder ([facility]) magnesium L-lactate 84 mg 84 mg PO DAILY@10/12/23 03/28/24 03/27/24 History tablet,extended release methotrexate sodium 2.5 mg tablet 6 mg PO Q7D 10/12/23 03/28/24 03/22/24 History pyridoxine (vitamin B6) 250 mg 500 mg PO DAILY@08 10/12/23 03/28/24 03/27/24 History tablet (Vitamin B-6) aspirin 81 mg tablet,delayed 81 mg PO DAILY #30 tabs 10/19/23 03/28/24 03/27/24 Rx release bumetanide 2 mg tablet See Rx Instructions .Route .COMPLEX 12/15/23 03/28/24 03/26/24 History folic acid 1 mg tablet 1 mg PO DAILY 01/09/24 03/28/24 03/27/24 History honey 80 % topical gel (MediHoney See Rx Instructions .Route .COMPLEX 01/09/24 03/28/24 03/27/24 History (honey)) melatonin 1 mg tablet 1 mg PO BEDTIME 01/09/24 03/28/24 03/27/24 History insulin degludec 100 unit/mL (3 12 unit SUBCUT BEDTIME 02/15/24 03/28/24 03/27/24 History mL) subcutaneous pen (Tresiba FlexTouch U-100 insulin) menthol 0.44 %-zinc oxide 20.6 % See Rx Instructions .Route .COMPLEX 02/15/24 03/28/24 03/27/24 History topical ointment (Calmoseptine) carica papaya 4 tab PO TID 03/17/24 03/28/24 03/27/24 History lidocaine 5 % topical patch 1 patch topical BID 03/17/24 03/28/24 03/27/24 History polyethylene glycol 3350 17 17 g PO DAILY 03/17/24 03/28/24 03/27/24 History gram/dose oral powder (Miralax) sertraline 100 mg tablet 100 mg PO BEDTIME 03/17/24 03/28/24 03/27/24 History midodrine 10 mg tablet 10 mg PO TID PRN low bp 03/28/24 03/28/24 Unknown History ondansetron 4 mg disintegrating 4 mg PO Q6H PRN Nausea And Vomiting 03/28/24 03/28/24 03/27/24 History tablet Allergies Allergy/AdvReac Type Severity Reaction Status Date / Time adhesive tape Allergy rash Verified 01/07/24 09:18 cinnamon Allergy sinus Verified 01/07/24 09:18 codeine Allergy unknown Verified 01/07/24 09:18 cedar Allergy sinus Uncoded 01/07/24 09:18 pine Allergy sinus Uncoded 01/07/24 09:18 pork food Allergy ADR-Nausea Uncoded 01/07/24 09:18 PFSH Acute 2 PFSH: Medical History History of cardiovascular stress test 09/2023 History of stroke Diabetes mellitus, type II Myasthenia gravis listed in [facility] records Amber albicans infection 2022 Clostridioides difficile diarrhea 12/18 Inflammatory arthritis Sleep apnea in adult noncompliant with CPAP/BiPAP in outpt setting (machine feels different) Colon polyp Gastric polyposis UGIB (upper gastrointestinal bleed) 2020 Chronic atrial fibrillation not on chronic anticoagulation due to recurrent falls and prior GI bleed NSTEMI (non-ST elevated myocardial infarction) Congestive heart failure (CHF) Orthostatic hypotension Chronic post-traumatic stress disorder (PTSD) Major depressive disorder, recurrent episode, moderate with anxious distress Duodenal ulcer due to bacteria 08/16 Coronary artery disease Chronic knee pain Chronic low back pain COVID-14 August 2020 Seronegative rheumatoid arthritis of both hands Osteoarthritis of knees, bilateral Fibromyalgia Lung nodule Unstable angina Urgency incontinence Left renal mass COPD (chronic obstructive pulmonary disease) Oxygen dependent, 3-3.5 L at baseline Hypothyroidism Liver cirrhosis Hyperlipidemia Hypertension Recurrent UTI Surgical History S/P dialysis catheter insertion 07/2023 History of colonoscopy 06/23/22 History of esophagogastroduodenoscopy (EGD) 06/23/22 History of cholecystectomy History of thyroid surgery History of cardiac cath History of hysterectomy History of knee replacement Family History Other CAD (coronary artery disease) Cancer Denies family history of Anesthesia complication Bleeding disorder Social History Smoking and tobacco/nicotine status: former use of tobacco/nicotine Quit status (tobacco/nicotine): has quit using Year quit tobacco: 2005 Second hand smoke exposure: No Alcohol intake: never Substance/Drug Use: never Adopted: No Caregiver/support person: No Lives independently: No Household members: spouse Housing: Residential Marital status: Current occupational status: retired Current gender identity: Female Vitals/I&O/Wt Last Vital Signs Temp 97.9 F 03/28/24 07:45 Pulse 70 03/28/24 07:57 Resp 18 03/28/24 05:00 BP 79/52 03/28/24 07:45 Pulse Ox 97 03/28/24 07:57 O2 Del Method Nasal Cannula 03/28/24 07:45 O2 Flow Rate 4 03/28/24 07:45 FiO2 40 03/28/24 07:57 03/27/24 03/28/24 03/28/24 22:59 06:59 14:59 Intake Total 250 / 250 Balance 250 / 250 Weight last 48 hrs Weight 89.811 kg Physical Exam 2 Narrative: General exam is a white female, on BiPAP, who opens her eyes briefly to stimulation. HEENT: Atraumatic normocephalic. Oropharynx clear Neck is supple Cardiovascular heart sounds distant, regular rhythm, no obvious murmur. Dialysis port noted right chest. Lungs diminished breath sounds bilaterally. No crackles Abdomen is soft, bowel sounds noted Extremities trace to 1+ edema bilaterally. Cool. Cap refill less than 2 seconds. Skin no rash Neuro no focal deficits Back demonstrates sacral decub, stage II, no evidence of infection. Nursing is addressing with wound care. Data 03/28/24 03:43 03/28/24 02:48 Other Labs: EKG which I reviewed demonstrates sinus rhythm, first-degree AV block, left axis deviation, right bundle branch block. Chest CT which I reviewed demonstrates bilateral pleural effusions right greater than left. Bilateral infiltrates. Chest x-ray which I reviewed demonstrates poor technique with rotation. Dialysis catheter is noted. Right and left pleural effusions are noted, the right being significantly worse than the left. I have ordered a urinalysis, cortisol level, blood culture, urine culture ABG on BiPAP demonstrated pH 7.38, pCO2 48, pO2 of 81. FiO2 is 40%. Magnesium 1.3 Bilirubin 1.4, AST 52, ALT 38, alk phos 279 Troponin 83, 6-hour 89 BNP 30,000 Albumin 3 rapid COVID-negative A&P Assessment and plan (1) Acute respiratory failure: Patient with acute on chronic hypoxic respiratory failure Support with BiPAP See notations below Wean BiPAP as tolerated (2) COPD (chronic obstructive pulmonary disease): Patient with longstanding history of COPD, on 3-1/2 L baseline Secondary to hypotension will give hydrocortisone initially, which should cover her for an acute COPD exacerbation which is likely. If cortisol level is negative can change to Solu-Medrol and/or other steroid DuoNeb every 4 hours Budesonide twice daily Support with BiPAP (3) PNA (pneumonia): Concern of pneumonia on CT scan Secondary to history of MRSA, ESBL will place on vancomycin and meropenem Obtain sputum culture, blood culture, urinalysis, urine culture (4) Pleural effusion, bilateral: Patient with bilateral pleural effusions likely secondary to fluid overload Monitor for improvement If does not improve could consider thoracentesis on the right (5) Heart failure with preserved ejection fraction: Has history of diastolic heart failure Certainly has fluid overload with bilateral pleural effusions right greater than left This should respond to dialysis (6) End stage renal disease on dialysis: Nephrology consult Missed dialysis yesterday Hopefully dialysis can occur today (7) Hypomagnesemia: Supplement with 1 g IV cautiously considering renal failure Check daily (8) Hypotension: Patient with history of hypotension, requiring midodrine Consider albumin with dialysis Start midodrine 10 mg 3 times daily Check cortisol level Initiate hydrocortisone 100 mg every 8 hours, awaiting this level. She has had intermittent steroids in the past for her COPD. Plan Anemia, monitor, defer to nephrology Diabetes, sliding scale insulin History of A-fib, continue amiodarone, telemetry Multiple other medical problems as outlined in past medical history Limited code, no intubation or ventilation Heparin for DVT prophylaxis Protonix for GI prophylaxis Attestations 2 Medical Necessity Statement*: Will require greater than 2 midnight stay for evaluation and treatment of respiratory failure with hypoxia requiring BiPAP in this patient with acute diastolic heart failure, fluid overload, renal failure with missed dialysis, pneumonia, etc. Critical Care Time: The high probability of a clinically significant, sudden or life threatening deterioration of the patient's [pulmonary, metabolic, cardiac, renal] system(s) required my full and direct attention, intervention and personal management. The critical care time is as shown. This time is in addition to time spent performing any reported procedures but includes the following: [x] Data and vital sign review and interpretation [x] Patient assessment, examination and intervention [x] Documentation [x] Medication orders and management Critical Care Time (min): 61 Coding Level of Care Code Critical Care >/= 30 minutes Critical care time (in minutes): 61 The high probability of a clinically significant, sudden or life threatening deterioration, as referenced in this documentation, required my full and direct attention, intervention and personal management. The critical care time shown is in addition to time spent performing any reported separately billable procedures and includes the following: [x] Data and vital sign review and interpretation [x ] Patient assessment, examination and intervention [x] Medication orders and management [x] Patient/Family updates as able [x] Care Coordination and Documentation. Diagnoses Acute respiratory failure J96.00 COPD (chronic obstructive pulmonary disease) J44.9 PNA (pneumonia) J18.9 Pleural effusion, bilateral J90 Heart failure with preserved ejection fraction I50.30 End stage renal disease on dialysis N18.6; Z99.2 Hypomagnesemia E83.42 Hypotension I95.9
[2024-03-28 08:42] LABS: Troponin 5 6HR 89.23 ng/L (0-10); Troponin 5 6HR Delta 6.23 ng/L (0-12)
[2024-03-28] MEDS: midodrine 5 mg TABLET 10 MG PO ×3 (08:46→20:58)
[2024-03-28] MEDS: magnesium sulfate premix 1 GM/100 ML PIGGYBACK IV (08:49)
[2024-03-28] MEDS: vancomycin 1,000 MG in sodium chloride 0.9% 250 ML 250 MG IV ×2 (08:51→17:56)
[2024-03-28 09:02] LABS: Cortisol Random 53.39 ug/dL (2.47-19.5)
[2024-03-28 09:11] LABS: Magnesium 1.4 mg/dL (1.7-2.3)
[2024-03-28 09:15] LABS: Glucose Point of Care 163 mg/dL (70-110)
[2024-03-28] MEDS: heparin, porcine 1,000 unit/mL INJ 10 mL 1000 UNIT IV (09:58)
--- NOTE | 2024-03-28 10:13 | PC.HD ---
Phone consent obtained from , witnessed by 2 RNs. Dressing changed prior to treatment initiation; triple antibiotic ointment applied to catheter insertion site.
[2024-03-28 11:57] LABS: Glucose Point of Care 145 mg/dL (70-110)
[2024-03-28] MEDS: heparin, porcine 1,000 unit/mL INJ 10 mL 10000 UNIT INTRACATH (12:54)
[2024-03-28] MEDS: sodium chloride 0.9% 1,000 ML 500 ML IV (12:56)
--- NOTE | 2024-03-28 12:59 | PC.HD ---
Patient's BP dropped significantly during last 20-30 minutes of treatment. Per carburetor rebuilder, treatment was terminated 21 minutes early at 12:41. UF goal not met. Goal was 3000 mL; 2500 mL removed.
--- NOTE | 2024-03-28 13:03 | PM.CONSULT ---
Providers/Reason For Consult Consulting Physician/Specialty*: kommana/nephrology Reason for Consult*: ESRD Attending Physician: Bayron Browne MD History of Present Illness History of Present Illness Myesha Parker is a 73 year old female 73-year-old female with past medical history of diabetes, hypertension history of stroke, A-fib, CHF coronary artery disease who is a resident of [facility] close of breath and respiratory distress. Hospital for similar problem 3 to 4 L of O2 by nasal cannula as outpatient blood pressures have been below low in the 80s systolic on presentation. Lab data significant for elevated WBC count, hemoglobin of 9.9. Chest x-ray showed bilateral pleural effusions. Review of Systems Narrative: negative Medications/Allergies Home Medications Medication Instructions Recorded Confirmed Last Taken Type cholecalciferol (vitamin D3) 25 1,000 unit PO DAILY@10/12/19 03/28/24 03/27/24 History mcg (1,000 unit) tablet (Vitamin D3) nitroglycerin 0.4 mg sublingual 0.4 mg sublingual Q5M PRN Chest 02/08/21 03/28/24 Unknown Rx tablet (Nitrostat) Pain #30 tabs calcium carbonate (Calcium 600) 600 mg PO DAILY@06/27/21 03/28/24 03/27/24 History levothyroxine 150 mcg tablet 150 mcg PO DAILY@06/27/21 03/28/24 03/27/24 History (Euthyrox) pantoprazole 40 mg tablet,delayed 40 mg PO BID 09/13/21 03/28/24 03/27/24 History release glucose 4 gram chewable tablet 4 g PO PRN PRN Hypoglycemia 06/17/23 03/28/24 Unknown History fluticasone fur. 200 mcg-umeclid 1 inh inhalation DAILY #28 ea 06/20/23 03/28/24 03/27/24 Rx 62.5 mcg-vilant 25 mcg inhalat.powder (Trelegy Ellipta) insulin lispro 100 unit/mL See Rx Instructions .Route 08/17/23 03/28/24 03/27/24 Rx subcutaneous solution (Humalog .COMPLEX #10 mL U-100 Insulin) hydrocodone 5 mg-acetaminophen 325 1 tab PO TID PRN Pain 09/24/23 03/28/24 03/26/24 History mg tablet acetaminophen 325 mg tablet 650 mg PO Q6H PRN PAIN OR 09/30/23 03/28/24 01/04/24 History INCREASED TEMP amiodarone 200 mg tablet 200 mg PO DAILY@09/30/23 03/28/24 03/27/24 History bisacodyl 10 mg rectal suppository 10 mg [place] DAILY PRN if no bm x3 days 09/30/23 03/28/24 11/22/23 History (Dulcolax (bisacodyl)) meclizine 25 mg tablet 25 mg PO TID PRN Nausea And 09/30/23 03/28/24 03/24/24 History Vomiting metolazone 2.5 mg tablet See Rx Instructions .Route .COMPLEX 09/30/23 03/28/24 03/26/24 History nystatin 100,000 unit/gram topical See Rx Instructions .Route .COMPLEX 09/30/23 03/28/24 Unknown History powder ([facility]) magnesium L-lactate 84 mg 84 mg PO DAILY@10/12/23 03/28/24 03/27/24 History tablet,extended release methotrexate sodium 2.5 mg tablet 6 mg PO Q7D 10/12/23 03/28/24 03/22/24 History pyridoxine (vitamin B6) 250 mg 500 mg PO DAILY@10/12/23 03/28/24 03/27/24 History tablet (Vitamin B-6) aspirin 81 mg tablet,delayed 81 mg PO DAILY #30 tabs 10/19/23 03/28/24 03/27/24 Rx release bumetanide 2 mg tablet See Rx Instructions .Route .COMPLEX 12/15/23 03/28/24 03/26/24 History folic acid 1 mg tablet 1 mg PO DAILY 01/09/24 03/28/24 03/27/24 History honey 80 % topical gel (MediHoney See Rx Instructions .Route .COMPLEX 01/09/24 03/28/24 03/27/24 History (honey)) melatonin 1 mg tablet 1 mg PO BEDTIME 01/09/24 03/28/24 03/27/24 History insulin degludec 100 unit/mL (3 12 unit SUBCUT BEDTIME 02/15/24 03/28/24 03/27/24 History mL) subcutaneous pen (Tresiba FlexTouch U-100 insulin) menthol 0.44 %-zinc oxide 20.6 % See Rx Instructions .Route .COMPLEX 02/15/24 03/28/24 03/27/24 History topical ointment (Calmoseptine) carica papaya 4 tab PO TID 03/17/24 03/28/24 03/27/24 History lidocaine 5 % topical patch 1 patch topical BID 03/17/24 03/28/24 03/27/24 History polyethylene glycol 3350 17 17 g PO DAILY 03/17/24 03/28/24 03/27/24 History gram/dose oral powder (Miralax) sertraline 100 mg tablet 100 mg PO BEDTIME 03/17/24 03/28/24 03/27/24 History midodrine 10 mg tablet 10 mg PO TID PRN low bp 03/28/24 03/28/24 Unknown History ondansetron 4 mg disintegrating 4 mg PO Q6H PRN Nausea And Vomiting 03/28/24 03/28/24 03/27/24 History tablet Allergies Allergy/AdvReac Type Severity Reaction Status Date / Time adhesive tape Allergy rash Verified 01/07/24 09:18 cinnamon Allergy sinus Verified 01/07/24 09:18 codeine Allergy unknown Verified 01/07/24 09:18 cedar Allergy sinus Uncoded 01/07/24 09:18 pine Allergy sinus Uncoded 01/07/24 09:18 pork food Allergy ADR-Nausea Uncoded 01/07/24 09:18 Current Medications Generic Name Dose Route Start Last Admin Trade Name Freq PRN Reason Stop Dose Admin Albuterol/Ipratropium 3 ml 03/28/24 08:45 03/28/24 11:44 Ipratropium-Albuterol 3 Ml Neb INHALATION 3 ml Q4H JOCE Administration Midodrine 10 mg 03/28/24 09:00 03/28/24 08:46 Midodrine 5 Mg Tablet PO 10 mg TID JOCE Administration Midodrine 10 mg 03/28/24 09:00 03/28/24 12:12 Midodrine 5 Mg Tablet PO Not Given TID JOCE PFSH Acute PFSH: Medical History History of cardiovascular stress test 09/2023 History of stroke Diabetes mellitus, type II Myasthenia gravis listed in [facility] records Amber albicans infection 2022 Clostridioides difficile diarrhea 12/18 Inflammatory arthritis Sleep apnea in adult noncompliant with CPAP/BiPAP in outpt setting (machine feels different) Colon polyp Gastric polyposis UGIB (upper gastrointestinal bleed) 2020 Chronic atrial fibrillation not on chronic anticoagulation due to recurrent falls and prior GI bleed NSTEMI (non-ST elevated myocardial infarction) Congestive heart failure (CHF) Orthostatic hypotension Chronic post-traumatic stress disorder (PTSD) Major depressive disorder, recurrent episode, moderate with anxious distress Duodenal ulcer due to bacteria 08/16 Coronary artery disease Chronic knee pain Chronic low back pain COVID-14 August 2020 Seronegative rheumatoid arthritis of both hands Osteoarthritis of knees, bilateral Fibromyalgia Lung nodule Unstable angina Urgency incontinence Left renal mass COPD (chronic obstructive pulmonary disease) Oxygen dependent, 3-3.5 L at baseline Hypothyroidism Liver cirrhosis Hyperlipidemia Hypertension Recurrent UTI Surgical History S/P dialysis catheter insertion 07/2023 History of colonoscopy 06/23/22 History of esophagogastroduodenoscopy (EGD) 06/23/22 History of cholecystectomy History of thyroid surgery History of cardiac cath History of hysterectomy History of knee replacement Family History Other CAD (coronary artery disease) Cancer Denies family history of Anesthesia complication Bleeding disorder Social History Smoking and tobacco/nicotine status: former use of tobacco/nicotine Quit status (tobacco/nicotine): has quit using Year quit tobacco: 2005 Second hand smoke exposure: No Alcohol intake: never Substance/Drug Use: never Adopted: No Caregiver/support person: No Lives independently: No Household members: spouse Housing: [place] Marital status: Current occupational status: retired Current gender identity: Female Vitals/I&O/Wt Last Vital Signs Temp 98.6 F 03/28/24 12:56 Pulse 67 03/28/24 12:56 Resp 22 H 03/28/24 12:56 BP 61/38 03/28/24 12:56 Pulse Ox 96 03/28/24 11:48 O2 Del Method BiPAP 03/28/24 11:48 O2 Flow Rate 4 03/28/24 07:45 FiO2 40 03/28/24 11:48 03/27/24 03/28/24 03/28/24 22:59 06:59 14:59 Intake Total 250 / 250 500 / 500 Output Total 3000 / 3000 Balance 250 / 250 -2500 / -2500 Weight last 48 hrs Weight 87.6 kg Weight 89.811 kg Physical Exam Narrative: awake ,a lert on bipap S1S2 RRR per report lungs + crackles per report No edema Data 03/28/24 03:43 03/28/24 02:48 Micro: Microbiology 03/28/24 10:32 Blood Culture - Preliminary Blood SPECIMEN COLLECTED 03/28/24 10:28 Blood Culture - Preliminary Blood SPECIMEN COLLECTED A&P Assessment and plan (1) End stage renal disease on dialysis: Plan 1. End-stage renal disease: presented with volume overload , HD today 2. Hypotension , added midodrine 3. Acute on chronic respiratory failure: multifactorial 4. Anemia: Hemoglobin 9.9 , monitor 5. History of diabetes 6. History of atrial fibrillation Patient evaluated using audiovisual cart. Time spent 40 minutes. Consult Attestations Medical Necessity Statement: per nano Coding Level of Care Code Acute Code for Chg Fwd Diagnoses End stage renal disease on dialysis N18.6; Z99.2
[2024-03-28] MEDS: aspirin 81 mg EC Tablet PO (13:48)
[2024-03-28] MEDS: insulin lispro 100 unit/1 mL SUBCUT ×3 (13:48→21:01)
[2024-03-28] MEDS: heparin 5,000 unit/mL INJ 1 mL 5000 UNIT SUBCUT ×2 (13:48→20:59)
[2024-03-28] MEDS: pantoprazole 40 mg SDV IVP (13:49)
[2024-03-28] MEDS: meropenem 500 mg SDV IVP ×2 (13:49→20:58)
[2024-03-28] MEDS: hydrocortisone 100 mg/2 mL SDV IVP (13:49)
--- NOTE | 2024-03-28 14:20 | PC.NURSE ---
Dr Browne notified via message of: 1). She became hypotensive SBP 60-70 right at the end of dialysis. Ana Luisa stopped. Unfortunately her IV also got pulled out. After getting IV I gave her 150ml bolus. And gave the afternoon Midodrine at 1400 that was due at 1500. Her latest BP 95/65. 2.) With all the stuff going on in the unit and the dialysis, the am meds were given LATE. Dr Browne call unit and we discussed further pt care.
--- NOTE | 2024-03-28 15:54 | PC.SOCIAL ---
IMM Updated Updated pt's on IMM. No questions voiced. Provided pt a copy. Initialed, dated, & timed a copy & placed in chart.
[2024-03-28 17:46] LABS: Glucose Point of Care 227 mg/dL (70-110)
--- NOTE | 2024-03-28 19:00 | PC.NURSE ---
Dr Browne notified of her low again BP of 75/40. Asymptomatic at tis time. to continued to watch, stimulate awake.. If symptomatic may give the Midodrine early.
--- NOTE | 2024-03-28 19:51 | PC.NURSE ---
Shift summary: pt rested in bed throughout the shift. She wore the BiPap for the majority of the shift. She switched to 5lpm/NC after her , Gerardo, came to visit. HD don today: 2500ml removed. She did get hypotensive in the last half hour of dialysis, so dialysis nurse stopped early. A small fluid bolus of 150ml given, and Midodrine admin at 1400, when due at 1500. She is on her third IV already. No urine output noted t his shift .. No Bm Noted. She does had a pressure area on her sacrum.
[2024-03-28 19:53] LABS: Charge for UA Resulting for Rev
[2024-03-28 19:56] LABS: Bilirubin Urine 1+ (Negative); Blood Urine 2+ (Negative); Glucose Urine UA Negative (Normal); Ketones Urine Trace (Negative); Leukocyte Esterase Urine 3+ (Negative); Nitrate Urine Positive (Negative); Protein Urine 3+ (Negative); Specific Gravity, Urine 1.016 (1.005-1.030); Urine Appearance Turbid (CLEAR); pH Urine 5.5 (5-7)
[2024-03-28 20:01] LABS: Urine Color Orange (Yellow)
[2024-03-28 20:02] LABS: Hyaline Casts Urine 15.45 /lpf
[2024-03-28] MEDS: budesonide 0.5 mg/2 mL Neb INHALATION (20:10)
[2024-03-28 20:12] LABS: WBC Urine >100 /hpf (0-5)
[2024-03-28 20:13] LABS: Bacteria Urine 4+ /hpf
[2024-03-28] MEDS: sertraline 100 mg Tablet PO (20:58)
[2024-03-28] MEDS: methylPREDNISolone sod succ 40 mg/mL INJ IVP (20:58)
[2024-03-28 21:30] LABS: Glucose Point of Care 190 mg/dL (70-110)
[2024-03-28 21:36] LABS: Adenovirus Not Detected (NOT DETECT); Chlamydia Pneumoniae Not Detected (NOT DETECT); Coronavirus 229E,HKU1,NL63,OC4 Not Detected (NOT DETECT); Human Metapneumovirus Not Detected (NOT DETECT); Human Rhinovirus/Enterovirus Not Detected (NOT DETECT); Influenza A Not Detected (NOT DETECT); Influenza A H1 Not Detected (NOT DETECT); Influenza A H1-2009 Not Detected (NOT DETECT); Influenza A H3 Not Detected (NOT DETECT); Influenza B Not Detected (NOT DETECT); Mycoplasma Pneumoniae Not Detected (NOT DETECT); Parainfluenza Virus Type 1 Not Detected (NOT DETECT); Parainfluenza Virus Type 2 Not Detected (NOT DETECT); Parainfluenza Virus Type 3 Not Detected (NOT DETECT); Parainfluenza Virus Type 4 Not Detected (NOT DETECT); Respiratory Syncytial Virus A Not Detected (NOT DETECT); Respiratory Syncytial Virus B Not Detected (NOT DETECT); SARS-COV-2 Not Detected (NOT DETECT)
[2024-03-29] VITALS (93 sets, daily range): BP systolic 92–139; BP diastolic 34–110; PULSE 61–76; RESP 16–24; TEMP 36.4–37.1; O2SAT 93–100
[2024-03-29 04:04] LABS: Basophils % 0.1 %; Hematocrit 28.8 % (36-47); Lymphocytes # 0.1 10^3/uL (0.8-4.8); Lymphocytes % 0.5 %; Mean Corpuscular HGB Conc 30.6 g/dL (30-55); Mean Corpuscular Hemoglobin 31.9 pg (27-33); Mean Corpuscular Volume 104.3 fl (85-98); Mean Platelet Volume 9.5 fL (7.4-10.4); Monocytes # 0.3 10^3/uL (0.2-0.9); Monocytes % 1.5 %; Neutrophils # 20.13 10^3/uL (1.8-7.7); Neutrophils % 96.6 %; Nucleated Red Blood Cells % 0 %; Platelet Count 156 10^3/cmm (157-399); Red Blood Count 2.76 10^6/uL (3.85-5.65); Red Cell Distribution Width 17.7 % (12.1-15.1); White Blood Count 20.86 10^3/uL (3.29-11.43)
[2024-03-29] MEDS: ipratropium-albuterol 3 mL Neb INHALATION ×4 (04:08→19:53)
[2024-03-29 04:20] LABS: Alanine Aminotransferase 38 U/L (0-33); Albumin Level 2.6 g/dL (3.5-5.2); Alkaline Phosphatase 215 U/L (35-105); Anion Gap 17.2 (5-19); Aspartate Amino Transferase 36 U/L (0-32); Blood Urea Nitrogen 34 mg/dL (8-23); Calcium 9.2 mg/dL (8.5-10.5); Carbon Dioxide 25 mmol/L (22-29); Chloride 97 mmol/L (98-107); Creatinine Clr Calc Pharmacy 22.3662; Globulin 3.6 g/dL (1.3-4.6); Glucose 230 mg/dL (65-115); Magnesium 1.7 mg/dL (1.7-2.3); Osmolality Calculated 295 mOsm/kg (285-295); Potassium 4.2 mmol/L (3.5-5.1); Sodium 135 mmol/L (136-145); Total Bilirubin 0.5 mg/dL (0.15-1.2); Total Protein 6.2 g/dL (6.6-8.7)
[2024-03-29] MEDS: levothyroxine 150 mcg Tablet PO (06:28)
[2024-03-29 08:02] LABS: Glucose Point of Care 209 mg/dL (70-110)
[2024-03-29] MEDS: amiodarone 200 mg Tablet PO (08:11)
[2024-03-29] MEDS: meropenem 500 mg SDV IVP ×2 (08:12→21:12)
[2024-03-29] MEDS: heparin 5,000 unit/mL INJ 1 mL 5000 UNIT SUBCUT ×2 (08:12→21:13)
[2024-03-29] MEDS: insulin lispro 100 unit/1 mL SUBCUT ×3 (08:12→17:09)
[2024-03-29] MEDS: budesonide 0.5 mg/2 mL Neb INHALATION ×2 (08:56→19:53)
[2024-03-29] MEDS: pantoprazole 40 mg SDV IVP (09:00)
[2024-03-29] MEDS: aspirin 81 mg EC Tablet PO (09:00)
[2024-03-29] MEDS: midodrine 5 mg TABLET 10 MG PO ×3 (09:00→21:13)
[2024-03-29 11:27] LABS: Glucose Point of Care 245 mg/dL (70-110)
--- NOTE | 2024-03-29 11:46 | P.PN_ITS ---
Subjective 2 Subjective: on BIPAP Medications: Reviewed: Yes Vitals/I&O/Wt Last Vital Signs Temp 98.7 F 03/29/24 08:30 Pulse 69 03/29/24 11:27 Resp 20 H 03/29/24 08:00 BP 99/42 03/29/24 10:30 Pulse Ox 100 03/29/24 11:27 O2 Del Method Nasal Cannula 03/29/24 09:45 O2 Flow Rate 3 03/29/24 09:00 FiO2 35 03/29/24 11:27 03/28/24 03/29/24 03/29/24 22:59 06:59 14:59 Intake Total 1250 / 2250 50 / 2300 400 / 400 Output Total 40 / 3040 Balance 1210 / -790 50 / -740 400 / 400 Weight last 48 hrs Weight 89.267 kg Weight 88.995 kg Weight 87.6 kg Weight 89.811 kg Physical Exam 2 Narrative: awake ,a lert on bipap S1S2 RRR per report lungs + crackles per report No edema Data 03/29/24 03:52 03/29/24 03:52 Micro: Microbiology 03/28/24 10:32 Blood Culture - Preliminary Blood NEGATIVE TO DATE 03/28/24 10:28 Blood Culture - Preliminary Blood NEGATIVE TO DATE A&P Assessment and plan (1) End stage renal disease on dialysis: Plan 1. End-stage renal disease: presented with volume overload , HD done yesterday 2. Hypotension , added midodrine 3. Acute on chronic respiratory failure: multifactorial 4. Anemia: Hemoglobin 8.8 , monitor 5. History of diabetes 6. History of atrial fibrillation Patient evaluated using audiovisual cart. Time spent 40 minutes. Attestations 2 Medical Necessity Statement*: per jenellede Coding Level of Care Code Acute Code for Chg Fwd Diagnoses End stage renal disease on dialysis N18.6; Z99.2
--- NOTE | 2024-03-29 15:12 | P.PN_ITS ---
Subjective 2 Subjective: Patient was seen this morning, she is alert to person, to place, not to time, she follows all commands, does report feeling unwell, no nausea, no vomiting, no chest pain, no shortness of breath, currently on nasal cannula, Vitals/I&O/Wt Last Vital Signs Temp 98.7 F 03/29/24 08:30 Pulse 71 03/29/24 14:00 Resp 20 H 03/29/24 13:10 BP 113/41 03/29/24 14:00 Pulse Ox 99 03/29/24 14:00 O2 Del Method Nasal Cannula 03/29/24 14:00 O2 Flow Rate 4 03/29/24 13:10 FiO2 35 03/29/24 11:27 03/29/24 03/29/24 03/29/24 06:59 14:59 22:59 Intake Total 50 / 2300 800 / 800 Balance 50 / -740 800 / 800 Weight last 48 hrs Weight 89.267 kg Weight 88.995 kg Weight 87.6 kg Weight 89.811 kg Physical Exam 2 Const: COMMON NORMALS: no acute distress Neck/C-Spine: COMMON NORMALS: no JVD Resp: COMMON NORMALS: normal respiratory effort, No retractions and No use of accessory muscles AUSCULTATION: crackles and wheezes Cardio: COMMON NORMALS: no JVD, regular rate, regular rhythm, S1 normal heart sound present and S2 normal heart sound present RATE: regular rate RHYTHM: regular rhythm HEART SOUNDS: S1 normal heart sound present and S2 normal heart sound present GI: COMMON NORMALS: Normal to inspection, nondistended, normoactive bowel sounds present and non-tender Extremity: COMMON NORMALS: no pedal edema Data 03/29/24 03:52 03/29/24 03:52 Micro: Microbiology 03/28/24 10:32 Blood Culture - Preliminary Blood NEGATIVE TO DATE 03/28/24 10:28 Blood Culture - Preliminary Blood NEGATIVE TO DATE A&P Assessment and plan (1) Acute respiratory failure: (2) COPD (chronic obstructive pulmonary disease): (3) PNA (pneumonia): (4) Pleural effusion, bilateral: (5) Heart failure with preserved ejection fraction: (6) End stage renal disease on dialysis: (7) Hypomagnesemia: (8) Hypotension: (9) UTI (urinary tract infection): (10) Transaminitis: Plan Acute hypoxic respiratory failure ? Likely multifactorial -COPD exacerbation ? CHF exacerbation, diastolic, fluid overload ? Pneumonia, with history of ESBL, history of MRSA ? Plan ? Continue vancomycin ? Continue meropenem ? Continue DuoNeb ? Continue BiPAP therapy ? Continue Solu-Medrol -Continue dialysis ? Monitor respiratory status closely COPD exacerbation ? Uses 3.5 L of oxygen at baseline Diastolic CHF exacerbation -Has bilateral pleural effusions ? Dialysis as above next End-stage renal disease on dialysis, continue dialysis Hypotension ? Continue midodrine UTI, continue meropenem Acute encephalopathy, resolving Anemia, monitor, show GI bleed, monitor hemoglobin Type II diabetes mellitus, insulin sliding scale History of A-fib, continue amiodarone, telemetry Sacral DTI, stage II, over sacrum, monitor History of CKD, end-stage renal disease on dialysis History of immunocompromise state, on methotrexate History of GI bleed, off anticoagulation Limited code, no intubation or ventilation Heparin for DVT prophylaxis Protonix for GI prophylaxis Aspiration precautions, dysphagia level 4 diet Attestations 2 Medical Necessity Statement*: Patient requires hospitalization for acute hypoxic respiratory failure, COPD, diastolic CHF, end-stage renal disease, hypotension, UTI Diagnoses Acute respiratory failure J96.00 COPD (chronic obstructive pulmonary disease) J44.9 PNA (pneumonia) J18.9 Pleural effusion, bilateral J90 Heart failure with preserved ejection fraction I50.30 End stage renal disease on dialysis N18.6; Z99.2 Hypomagnesemia E83.42 Hypotension I95.9 UTI (urinary tract infection) N39.0 Transaminitis R74.01
[2024-03-29 16:59] LABS: Glucose Point of Care 183 mg/dL (70-110)
[2024-03-29] MEDS: vancomycin 1,000 MG in sodium chloride 0.9% 250 ML 250 MG IV (17:06)
[2024-03-29] MEDS: methylPREDNISolone sod succ 40 mg/mL INJ IVP (21:12)
[2024-03-29] MEDS: sertraline 100 mg Tablet PO (21:13)
[2024-03-29 22:07] LABS: Glucose Point of Care 133 mg/dL (70-110)
[2024-03-30] VITALS (52 sets, daily range): BP systolic 124–168; BP diastolic 50–83; PULSE 57–71; RESP 16–24; TEMP 36.4–37.1; O2SAT 94–100
[2024-03-30] MEDS: ipratropium-albuterol 3 mL Neb INHALATION ×7 (00:27→23:20)
[2024-03-30 03:35] LABS: Basophils % 0.1 %; Lymphocytes # 0.1 10^3/uL (0.8-4.8); Lymphocytes % 0.3 %; Mean Corpuscular HGB Conc 30.7 g/dL (30-55); Mean Corpuscular Hemoglobin 32.1 pg (27-33); Mean Corpuscular Volume 104.7 fl (85-98); Mean Platelet Volume 9.7 fL (7.4-10.4); Monocytes # 0.2 10^3/uL (0.2-0.9); Monocytes % 0.8 %; Neutrophils % 97.3 %; Nucleated Red Blood Cells % 0.1 %; Platelet Count 187 10^3/cmm (157-399); Red Blood Count 2.77 10^6/uL (3.85-5.65); Red Cell Distribution Width 17.9 % (12.1-15.1)
[2024-03-30 03:45] LABS: Alanine Aminotransferase 35 U/L (0-33); Albumin Level 2.9 g/dL (3.5-5.2); Alkaline Phosphatase 219 U/L (35-105); Aspartate Amino Transferase 32 U/L (0-32); Blood Urea Nitrogen 52 mg/dL (8-23); Calcium 8.9 mg/dL (8.5-10.5); Carbon Dioxide 23 mmol/L (22-29); Chloride 93 mmol/L (98-107); Creatinine Clr Calc Pharmacy 16.1018; Glucose 215 mg/dL (65-115); Magnesium 1.8 mg/dL (1.7-2.3); Osmolality Calculated 295 mOsm/kg (285-295); Phosphorus 4.9 mg/dL (2.5-4.5); Sodium 132 mmol/L (136-145); Total Bilirubin 0.4 mg/dL (0.15-1.2); Total Protein 5.9 g/dL (6.6-8.7)
[2024-03-30 03:47] LABS: Anion Gap 21.1 (5-19); Potassium 5.1 mmol/L (3.5-5.1)
[2024-03-30 03:56] LABS: NT Pro B Type Natriuretic Pept 30879 pg/mL (0-450)
[2024-03-30 04:36] LABS: Procalcitonin > 100.00 ng/mL (0-0.5)
[2024-03-30] MEDS: levothyroxine 150 mcg Tablet PO (05:00)
[2024-03-30] MEDS: amiodarone 200 mg Tablet PO (06:30)
--- NOTE | 2024-03-30 07:00 | XRR_ITS ---
PROCEDURE INFORMATION: Exam: XR Chest Exam date and time: 03/30/2024 7:59 AM Age: 73 years old Clinical indication: Shortness of breath; Additional info: SOB TECHNIQUE: Imaging protocol: Radiologic exam of the chest. Views: 1 view. COMPARISON: CT chest con [id number] 03/28/2024 6:53 AM FINDINGS: Tubes, catheters and devices: Central venous catheter seen on the right with its tip overlying the SVC. Lungs: There are bilateral infiltrates. Pleural spaces: There are small bilateral pleural effusions greater on the right. Heart/Mediastinum: The heart is enlarged. There is calcified plaque involving the aorta. Bones/joints: Unremarkable. XR/XR chest 1V portable [id number] IMPRESSION: 1. Cardiomegaly with bilateral infiltrates and effusions likely on the basis of pulmonary edema. Findings are similar to that seen on prior chest CT.
[2024-03-30] MEDS: budesonide 0.5 mg/2 mL Neb INHALATION ×2 (07:36→19:35)
--- NOTE | 2024-03-30 07:49 | P.PN_ITS ---
Subjective 2 Subjective: in bed on 3 l nco2. has edema. denies oter complaints. no orthopnea, n/v/f/c/hernandez/d Medications: Reviewed: Yes Medication Review Details: Current Medications Albuterol/Ipratropium (Ipratropium-Albuterol 3 Ml Neb) 3 ml INHALATION Q4H COUNT INCLUDES THE [facility] Last Admin: 03/30/24 07:44 Dose: 3 ml Amiodarone HCl (Amiodarone 200 Mg Tablet) 200 mg PO DAILY@07 JOCE Last Admin: 03/30/24 06:30 Dose: 200 mg Aspirin (Aspirin 81 Mg Ec Tablet) 81 mg PO DAILY COUNT INCLUDES THE [facility] Last Admin: 03/29/24 09:00 Dose: 81 mg Budesonide (Budesonide 0.5 Mg/2 Ml Neb) 0.5 mg INHALATION BID.RESPIRATORY COUNT INCLUDES THE [facility] Last Admin: 03/30/24 07:36 Dose: 0.5 mg Glucagon (Glucagon 1 Mg/Ml Kit 1 Ml) 1 mg IM ONCE PRN; Protocol PRN Reason: Adult Acute Hypoglycemia Nursing Prot. Heparin Sodium (Porcine) (Heparin 5,000 Unit/Ml Inj 1 Ml) 5,000 unit SUBCUT Q12H COUNT INCLUDES THE [facility] Last Admin: 03/29/24 21:13 Dose: 5,000 unit Vancomycin HCl 1,000 mg/ (Sodium Chloride) 250 mls @ 250 mls/hr IV DIALYSIS COUNT INCLUDES THE [facility]; Protocol Last Infusion: 03/29/24 18:18 Dose: Infused Sodium Chloride (Sodium Chloride 0.9%) 1,000 mls @ 0 mls/hr IV .Q0M PRN PRN Reason: hypotension or symptomatic Last Infusion: 03/28/24 17:44 Dose: Infused Albumin Human (Albumin) 12.5 gm in 50 mls @ 60 mls/hr IV PRN PRN PRN Reason: Hypotension and/or symptomatic Dextrose (D5w) 500 mls @ 0 mls/hr IV ONCE PRN; Protocol PRN Reason: Adult Acute Hypoglycemia Prot Dextrose (D10w) 125 mls @ 750 mls/hr IV PRN PRN; Protocol PRN Reason: Adult Acute Hypoglycemia Nursing Protocol Dextrose (D10w) 250 mls @ 1,000 mls/hr IV PRN PRN; Protocol PRN Reason: Adult Acute Hypoglycemia Nursing Protocol Insulin Human Lispro (Insulin Lispro 100 Unit/1 Ml) 0 unit SUBCUT WM&BEDTIME JOCE; Protocol Last Admin: 03/29/24 21:12 Dose: Not Given Levothyroxine Sodium (Levothyroxine 150 Mcg Tablet) 150 mcg PO DAILY@06 COUNT INCLUDES THE [facility] Last Admin: 03/30/24 05:00 Dose: 150 mcg Meropenem (Meropenem 500 Mg Sdv) 500 mg IVP Q12H COUNT INCLUDES THE [facility] Last Admin: 03/29/24 21:12 Dose: 500 mg Methylprednisolone Sodium Succinate (Methylprednisolone Sod Succ 40 Mg/Ml Inj) 40 mg IVP Q24H COUNT INCLUDES THE [facility] Last Admin: 03/29/24 21:12 Dose: 40 mg Midodrine (Midodrine 5 Mg Tablet) 10 mg PO TID COUNT INCLUDES THE [facility] Last Admin: 03/29/24 21:13 Dose: 10 mg Ondansetron HCl (Ondansetron 2 Mg/Ml Sdv 2 Ml) 4 mg IVP Q6H PRN PRN Reason: NAUSEA AND VOMITING Pantoprazole Sodium (Pantoprazole 40 Mg Sdv) 40 mg IVP DAILY COUNT INCLUDES THE [facility] Last Admin: 03/29/24 09:00 Dose: 40 mg Sertraline HCl (Sertraline 100 Mg Tablet) 100 mg PO BEDTIME COUNT INCLUDES THE [facility] Last Admin: 03/29/24 21:13 Dose: 100 mg Vitals/I&O/Wt Last Vital Signs Temp 97.6 F 03/30/24 05:30 Pulse 61 03/30/24 07:41 Resp 16 03/30/24 07:35 BP 128/52 03/30/24 06:00 Pulse Ox 100 03/30/24 07:35 O2 Del Method Nasal Cannula 03/30/24 07:35 O2 Flow Rate 3 03/30/24 07:35 FiO2 3 03/30/24 04:06 03/29/24 03/30/24 03/30/24 22:59 06:59 14:59 Intake Total 450 / 1250 100 / 1350 Output Total 0 / 0 0 / 0 Balance 450 / 1250 100 / 1350 Weight last 48 hrs Weight 89.494 kg Weight 89.267 kg Weight 88.995 kg Weight 87.6 kg Physical Exam 2 Narrative: comfortable in bed, on nc02- 3l heent- nc/at, eomi, anicteric neck supple lungs dull bases heart regular abdomen soft, + bs ext + b/l edema neuro a,a, o x 2+, weak Data 03/30/24 02:41 08/04/24 02:41 Micro: Microbiology 03/28/24 10:32 Blood Culture - Preliminary Blood NEGATIVE TO DATE 03/28/24 10:28 Blood Culture - Preliminary Blood NEGATIVE TO DATE A&P Assessment and plan (1) End stage renal disease on dialysis: 73 yr old female ESRD, PNA, COPD 1. ESRD- plan dialysis today or tomorrow 2. pleural effusions- consider tapping 3. pna- renal dose abx 4, anemia- check iron stduies and give CARY 5. hyponatremia and hyperkalemia- high cortisol level. monitor w/ abx and HD meds reviewed seen and examined w/ RN- telehealth visit, using AV equipment Plan see above Attestations 2 Medical Necessity Statement*: pna, pleural effusions Time Spent in Patient Care: 16 - 35 minutes (>than 50% of time sp ent in counselling and/or direct pt care on unit) . Coding Level of Care Code Acute Code for Chg Fwd Diagnoses End stage renal disease on dialysis N18.6; Z99.2
[2024-03-30 08:16] LABS: Glucose Point of Care 202 mg/dL (70-110)
[2024-03-30 08:31] LABS: Iron 46 ug/dL (37-145)
[2024-03-30] MEDS: meropenem 500 mg SDV IVP ×2 (08:33→21:35)
[2024-03-30] MEDS: heparin 5,000 unit/mL INJ 1 mL 5000 UNIT SUBCUT ×2 (08:33→21:35)
[2024-03-30] MEDS: aspirin 81 mg EC Tablet PO (08:33)
[2024-03-30] MEDS: pantoprazole 40 mg SDV IVP (08:33)
[2024-03-30] MEDS: midodrine 5 mg TABLET 10 MG PO ×3 (08:33→21:36)
[2024-03-30] MEDS: insulin lispro 100 unit/1 mL SUBCUT ×3 (08:34→18:28)
[2024-03-30 08:58] LABS: Ferritin 1866 ng/mL (15-150)
[2024-03-30 09:57] LABS: C Reactive Protein 161.5 mg/L (0.0-4.9)
--- NOTE | 2024-03-30 10:42 | CTR_ITS ---
PROCEDURE INFORMATION: Exam: CT Chest With Contrast; Diagnostic Exam date and time: 03/30/2024 5:08 PM Age: 73 years old Clinical indication: Other: Persistent leukocytosis, pna, UTI TECHNIQUE: Imaging protocol: Diagnostic computed tomography of the chest with contrast. Radiation optimization: All CT scans at this facility use at least one of these dose optimization techniques: automated exposure control; mA and/or kV adjustment per patient size (includes targeted exams where dose is matched to clinical indication); or iterative reconstruction. Contrast material: OMNI 350; Contrast volume: 100 ml; Contrast route: INTRAVENOUS (IV); COMPARISON: CT chest wo con [id number] 03/28/2024 6:53 AM RADIATION DOSE METRICS: Total DLP (mGy-cm): 1293.03 FINDINGS: Tubes, catheters and devices: Right-sided dialysis catheter tip terminates within the lower SVC. Thyroid: Calcified thyroid nodules. Lungs: Atelectasis within the lung bases. Pleural spaces: Moderate right-sided pleural effusion. Small left-sided pleural effusion. Heart: Severe cardiomegaly. Coronary arteries: Coronary artery calcifications. Lymph nodes: Unremarkable. No enlarged lymph nodes. Vasculature: Unremarkable. No aortic aneurysm. Bones/joints: Unremarkable. No acute fracture. Soft tissues: Unremarkable. COMMENTS: Consistent with the [employer]'s Incidental Findings Committee white paper (J Am Cesar Radiol 2015): In patients aged 35 years and older with an incidental thyroid nodule equal to or greater than 1.[address], MRI or extrathyroidal US, further evaluation with dedicated thyroid US is recommended for patients with normal life expectancy and without comorbidities. For smaller nodules without suspicious features, no further evaluation or follow up is recommended. PROCEDURE INFORMATION: Exam: CT Abdomen And Pelvis With Contrast Exam date and time: 03/30/2024 5:08 PM Age: 73 years old Clinical indication: Other: Persistent leukocytosis, pna, UTI TECHNIQUE: Imaging protocol: Computed tomography of the abdomen and pelvis with contrast. Radiation optimization: All CT scans at this facility use at least one of these dose optimization techniques: automated exposure control; mA and/or kV adjustment per patient size (includes targeted exams where dose is matched to clinical indication); or iterative reconstruction. Contrast material: OMNI 350; Contrast volume: 100 ml; Contrast route: INTRAVENOUS (IV); COMPARISON: CT abdomen pelvis wo con [id number] 04/17/2023 10:50 AM RADIATION DOSE METRICS: Total DLP (mGy-cm): 1293.03 FINDINGS: Liver: Coarsened nodular hepatic contour compatible with cirrhosis. 0.5 cm cyst near the hepatic dome. Gallbladder and biliary ducts: Status post cholecystectomy. Pancreas: Normal. No ductal dilation. Spleen: No splenomegaly. Small calcified granulomas. Adrenal glands: Normal. No mass. Kidneys and ureters: Small bilateral simple renal cysts, no follow-up needed. Nonobstructing calculi within the bilateral kidneys. Anasarca. Stomach and bowel: Large rectal stool burden. No evidence of bowel obstruction. Appendix: No evidence of appendicitis. Intraperitoneal space: Unremarkable. No free air. No significant fluid collection. Vasculature: Unremarkable. No abdominal aortic aneurysm. Lymph nodes: Unremarkable. No enlarged lymph nodes. Urinary bladder: Unremarkable as visualized. Reproductive: Status post hysterectomy. Bones/joints: Severe spondylosis and multilevel intervertebral disc space narrowing and bilateral facet arthropathy. The vertebral body heights are preserved. Soft tissues: There is laxity of the abdominal wall. CT/CT chest abdpel w/*[id number] IMPRESSION: 1. Moderate right and small left pleural effusion with subjacent atelectasis. 2. Severe cardiomegaly and coronary artery calcifications. IMPRESSION: 1. No acute findings within the abdomen or pelvis. 2. Laxity of the abdominal wall. Anasarca. 3. Nonobstructing renal calculi. 4. Large rectal stool burden. 5. Cirrhotic liver. COMMENTS: Consistent with the [employer]'s Incidental Findings Committee white paper (J Am Cesar Radiol 2018): Any incidental renal lesion less than 1 cm or classified as too small to characterize, or any incidental cystic renal lesion characterized as simple-appearing, is likely benign. No follow-up imaging is recommended for these lesions per consensus recommendations based on imaging criteria.
--- NOTE | 2024-03-30 10:43 | PC.SLP ---
Therapist arrived to assess patient at 10:26am. Nurse reported that patient is currently on dysphagia lvl 4 diet and has had no issues so far with meals other than not being able to feed herself. Patient's family expresses she eats regular diet at home with no complications. Upon entry in room, lights were off and patient was asleep. When asked if she wanted to wake up for trials of food, she requested to continue sleeping and being very fatigued. Therapist will try again later.
[2024-03-30] MEDS: albumin 12.5 GM/50 ML VIAL IV ×2 (11:00→11:28)
[2024-03-30 11:04] LABS: Percent Saturation 34.5 % (20-50); Total Iron Binding Capacity 133 mcg/dl; Unsaturated Iron Binding 87 ug/dL (112-347)
[2024-03-30 11:54] LABS: Glucose Point of Care 160 mg/dL (70-110)
[2024-03-30 12:45] LABS: Erythrocyte Sedimentation Rate 63 mm/hr (0-15)
[2024-03-30] MEDS: polyethylene glycol 3350 Pkt 17 gm PO (12:47)
[2024-03-30 13:10] LABS: Lactate Dehydrogenase 296 U/L (135-214)
--- NOTE | 2024-03-30 15:30 | P.PN_ITS ---
Subjective 2 Subjective: -- Patient was seen this morning, -Continues to complain of fatigue, malai se, shortness of breath -Denies any nausea, no vomiting Vitals/I&O/Wt Last Vital Signs Temp 98.1 F 03/30/24 14:39 Pulse 63 03/30/24 14:39 Resp 18 03/30/24 14:39 BP 149/71 03/30/24 14:39 Pulse Ox 98 03/30/24 12:00 O2 Del Method BiPAP 03/30/24 12:00 O2 Flow Rate 3 03/30/24 10:00 FiO2 35 03/30/24 11:26 03/30/24 03/30/24 03/30/24 06:59 14:59 22:59 Intake Total 100 / 1350 850 / 850 Output Total 0 / 0 2600 / 2600 Balance 100 / 1350 -1750 / -1750 Weight last 48 hrs Weight 89.1 kg Weight 89.494 kg Weight 89.267 kg Weight 88.995 kg Physical Exam 2 Const: COMMON NORMALS: no acute distress and patient oriented x3 Resp: COMMON NORMALS: normal respiratory effort, No retractions and No use of accessory muscles AUSCULTATION: crackles and wheezes Cardio: COMMON NORMALS: regular rate, regular rhythm, S1 normal heart sound present and S2 normal heart sound present RATE: regular rate RHYTHM: r egular rhythm HEART SOUNDS: S1 normal heart sound present and S2 normal heart sound present GI: COMMON NORMALS: Normal to inspection, nondistended, normoactive bowel sounds present and non-tender Extremity: NARRATIVE EXTREMITY EXAM: 1+ edema Neuro: COMMON NORMALS: patient oriented x3 Psych: COMMON NORMALS: mental status grossly normal Data 03/30/24 02:41 03/30/24 02:41 Micro: Microbiology 03/30/24 09:48 Gram Stain - Final Sputum - Expectorated Sputum 03/28/24 19:42 Urine Culture - Preliminary Urine Catheterized Gram Negative Rods 03/28/24 10:32 Blood Culture - Preliminary Blood NEGATIVE TO DATE 03/28/24 10:28 Blood Culture - Preliminary Blood NEGATIVE TO DATE A&P Assessment and plan (1) Acute respiratory failure: (2) COPD (chronic obstructive pulmonary disease): (3) PNA (pneumonia): (4) Pleural effusion, bilateral: (5) Heart failure with preserved ejection fraction: (6) End stage renal disease on dialysis: (7) Hypomagnesemia: (8) Hypotension: (9) UTI (urinary tract infection): (10) Transaminitis: Plan Acute hypoxic respiratory failure ? Likely multifactorial -COPD exacerbation ? CHF exacerbation, diastolic, fluid overload ? Pneumonia, with history of ESBL, history of MRSA ? Plan ? Continue vancomycin ? Continue meropenem ? Continue DuoNeb ? Continue BiPAP therapy ? Continue Solu-Medrol -Continue dialysis ? Monitor respiratory status closely Leukocytosis -ESR 63, procalcitonin over 100, CRP 161, ferritin 1866, LDH 296 -Has a history of rheumatoid arthritis, was on immunosuppressive therapy -She has a history of MRSA positive sputum cultures, ESBL UTIs, Amber glabrata, Amber UTI/sputum cultures, history of Staph hominis bacteremia -in July 2023, had extensive infectious workup, she had a bronchoscopy -Was on Bactrim and steroids during that hospitalization ? MTB cultures with normal limits ? PCP cultures within normal limits, ? TB QuantiFERON negative ? Histoplasmosis, Coccidioides negative ? Negative serum Aspergillus Beta D glucan weakly positive -Is on methotrexate, currently immunocompromised -Continue antibiotics as above -Ordered histoplasmosis, Coccidioides, blastomycosis antigens, PCP PCR, beta D glucan, CT angio chest abdomen pelvis ? Does have sacral DTI, stage II COPD exacerbation ? Uses 3.5 L of oxygen at baseline Diastolic CHF exacerbation -Has bilateral pleural effusions ? Dialysis as above next End-stage renal disease on dialysis, continue dialysis Hypotension ? Continue midodrine UTI, continue meropenem Acute encephalopathy, resolving Anemia, monitor, show GI bleed, monitor hemoglobin Type II diabetes mellitus, insulin sliding scale History of A-fib, continue amiodarone, telemetry Sacral DTI, stage II, over sacrum, monitor History of CKD, end-stage renal disease on dialysis History of immunocompromise state, on methotrexate History of GI bleed, off anticoagulation Limited code, no intubation or ventilation Heparin for DVT prophylaxis Protonix for GI prophylaxis Aspiration precautions, dysphagia level 4 diet Plan for today, IV antibiotics, dialysis, CT chest and abdomen pelvis with IV contrast, histo studies Coccidioides, beta D glucan, Aspergillus, blastomycosis, Attestations 2 Medical Necessity Statement*: Patient requires hospitalization for acute hypoxic respiratory failure, leukocytosis, fluid overload Diagnoses Acute respiratory failure J96.00 COPD (chronic obstructive pulmonary disease) J44.9 PNA (pneumonia) J18.9 Pleural effusion, bilateral J90 Heart failure with preserved ejection fraction I50.30 End stage renal disease on dialysis N18.6; Z99.2 Hypomagnesemia E83.42 Hypotension I95.9 UTI (urinary tract infection) N39.0 Transaminitis R74.01
[2024-03-30] MEDS: iohexol 350 mg/mL 500 mL Btl (per mL) IV (17:11)
[2024-03-30 18:26] LABS: Glucose Point of Care 190 mg/dL (70-110)
[2024-03-30] MEDS: vancomycin 1,000 MG in sodium chloride 0.9% 250 ML 250 MG IV (18:54)
[2024-03-30 20:45] LABS: Glucose Point of Care 140 mg/dL (70-110)
[2024-03-30] MEDS: sertraline 100 mg Tablet PO (21:35)
[2024-03-31] VITALS (14 sets, daily range): BP systolic 134–176; BP diastolic 65–85; PULSE 61–69; RESP 18–29; TEMP 36.4–36.8; O2SAT 95–99
[2024-03-31] MEDS: ondansetron 2 mg/ML SDV 2 mL 4 MG IVP (02:26)
[2024-03-31] MEDS: HYDROcodone-acetaminophen 5-325 mg Tablet 1 TAB PO ×2 (03:15→22:48)
[2024-03-31] MEDS: ipratropium-albuterol 3 mL Neb INHALATION ×4 (03:20→15:11)
[2024-03-31] MEDS: levothyroxine 150 mcg Tablet PO (05:08)
[2024-03-31] MEDS: amiodarone 200 mg Tablet PO (06:14)
[2024-03-31 06:29] LABS: Basophils % 0.1 %; Eosinophils % 0.1 %; Hematocrit 28.4 % (36-47); Lymphocytes # 0.4 10^3/uL (0.8-4.8); Lymphocytes % 3.4 %; Mean Corpuscular Hemoglobin 32.6 pg (27-33); Mean Corpuscular Volume 105.2 fl (85-98); Mean Platelet Volume 9.7 fL (7.4-10.4); Monocytes # 0.7 10^3/uL (0.2-0.9); Neutrophils # 10.73 10^3/uL (1.8-7.7); Neutrophils % 89.6 %; Nucleated Red Blood Cells % 0 %; Platelet Count 157 10^3/cmm (157-399); White Blood Count 11.98 10^3/uL (3.29-11.43)
[2024-03-31 06:30] LABS: Glucose Point of Care 112 mg/dL (70-110)
[2024-03-31 06:50] LABS: Alanine Aminotransferase 26 U/L (0-33); Albumin Level 3.1 g/dL (3.5-5.2); Alkaline Phosphatase 190 U/L (35-105); Anion Gap 16.7 (5-19); Aspartate Amino Transferase 19 U/L (0-32); Blood Urea Nitrogen 26 mg/dL (8-23); Calcium 8.9 mg/dL (8.5-10.5); Carbon Dioxide 27 mmol/L (22-29); Chloride 98 mmol/L (98-107); Creatinine Clr Calc Pharmacy 26.6818; Globulin 2.5 g/dL (1.3-4.6); Glucose 111 mg/dL (65-115); Magnesium 1.9 mg/dL (1.7-2.3); Osmolality Calculated 291 mOsm/kg (285-295); Phosphorus 2.9 mg/dL (2.5-4.5); Potassium 3.7 mmol/L (3.5-5.1); Sodium 138 mmol/L (136-145); Total Bilirubin 0.5 mg/dL (0.15-1.2); Total Protein 5.6 g/dL (6.6-8.7)
[2024-03-31 06:57] LABS: Procalcitonin 75.72 ng/mL (0-0.5)
[2024-03-31 07:17] LABS: NT Pro B Type Natriuretic Pept 30488 pg/mL (0-450)
[2024-03-31] MEDS: budesonide 0.5 mg/2 mL Neb INHALATION (07:20)
--- NOTE | 2024-03-31 08:10 | PM.PN ---
Subjective Subjective: The patient was seen and examined. Complains of weakness chest discomfort poor appetite not feeling well. She states her edema has improved. She is not very ambulatory. Medications: Reviewed: Yes Medication Review Details: Current Medications Albuterol/Ipratropium (Ipratropium-Albuterol 3 Ml Neb) 3 ml INHALATION Q4H [facility] Last Admin: 03/31/24 03:20 Dose: 3 ml Amiodarone HCl (Amiodarone 200 Mg Tablet) 200 mg PO DAILY@07 [facility] Last Admin: 03/31/24 06:14 Dose: 200 mg Aspirin (Aspirin 81 Mg Ec Tablet) 81 mg PO DAILY [facility] Last Admin: 03/30/24 08:33 Dose: 81 mg Budesonide (Budesonide 0.5 Mg/2 Ml Neb) 0.5 mg INHALATION BID.RESPIRATORY [facility] Last Admin: 03/30/24 19:35 Dose: 0.5 mg Folic Acid (Folic Acid 1 Mg Tablet) 1 mg PO DAILY [facility] Glucagon (Glucagon 1 Mg/Ml Kit 1 Ml) 1 mg IM ONCE PRN; Protocol PRN Reason: Adult Acute Hypoglycemia Nursing Prot. Heparin Sodium (Porcine) (Heparin 5,000 Unit/Ml Inj 1 Ml) 5,000 unit SUBCUT Q12H [facility] Last Admin: 03/30/24 21:35 Dose: 5,000 unit Vancomycin HCl 1,000 mg/ (Sodium Chloride) 250 mls @ 250 mls/hr IV DIALYSIS [facility]; Protocol Last Infusion: 03/30/24 21:09 Dose: Infused Sodium Chloride (Sodium Chloride 0.9%) 1,000 mls @ 0 mls/hr IV .Q0M PRN PRN Reason: hypotension or symptomatic Last Infusion: 03/28/24 17:44 Dose: Infused Albumin Human (Albumin) 12.5 gm in 50 mls @ 60 mls/hr IV PRN PRN PRN Reason: Hypotension and/or symptomatic Dextrose (D5w) 500 mls @ 0 mls/hr IV ONCE PRN; Protocol PRN Reason: Adult Acute Hypoglycemia Prot Dextrose (D10w) 125 mls @ 750 mls/hr IV PRN PRN; Protocol PRN Reason: Adult Acute Hypoglycemia Nursing Protocol Dextrose (D10w) 250 mls @ 1,000 mls/hr IV PRN PRN; Protocol PRN Reason: Adult Acute Hypoglycemia Nursing Protocol Albumin Human (Albumin) 12.5 gm in 50 mls @ 60 mls/hr IV PRN PRN PRN Reason: Hypotension and/or symptomatic Last Admin: 03/30/24 11:28 Dose: 120 mls/hr Insulin Human Lispro (Insulin Lispro 100 Unit/1 Ml) 0 unit SUBCUT WM&BEDTIME [facility]; Protocol Last Admin: 03/31/24 08:08 Dose: Not Given Levothyroxine Sodium (Levothyroxine 150 Mcg Tablet) 150 mcg PO DAILY@06 [facility] Last Admin: 03/31/24 05:08 Dose: 150 mcg Magnesium Lactate (Magnesium Lactate 84 Mg Tablet) 84 mg PO DAILY@08 [facility] Meropenem (Meropenem 500 Mg Sdv) 500 mg IVP Q12H [facility] Last Admin: 03/30/24 21:35 Dose: 500 mg Midodrine (Midodrine 5 Mg Tablet) 10 mg PO TID [facility] Last Admin: 03/30/24 21:36 Dose: 10 mg Non-Formulary Medication (Pyridoxine (Vitamin B6) [Vitamin B-6]) 500 mg PO DAILY@08 [facility] Nystatin (Nystatin Powder 15 Gm Btl) 1 applic TOPICAL BID PRN PRN Reason: IRRITATION Ondansetron HCl (Ondansetron 2 Mg/Ml Sdv 2 Ml) 4 mg IVP Q6H PRN PRN Reason: NAUSEA AND VOMITING Last Admin: 03/31/24 02:26 Dose: 4 mg Pantoprazole Sodium (Pantoprazole 40 Mg Sdv) 40 mg IVP DAILY [facility] Last Admin: 03/30/24 08:33 Dose: 40 mg Polyethylene Glycol (Polyethylene Glycol 3350 Pkt 17 Gm) 17 gm PO DAILY [facility] Prednisone (Prednisone 20 Mg Tablet) 40 mg PO DAILY [facility] Sertraline HCl (Sertraline 100 Mg Tablet) 100 mg PO BEDTIME [facility] Last Admin: 03/30/24 21:35 Dose: 100 mg Vitals/I&O/Wt Last Vital Signs Temp 98.1 F 03/31/24 04:00 Pulse 65 03/31/24 05:34 Resp 22 H 03/31/24 04:00 BP 151/72 03/31/24 04:00 Pulse Ox 97 03/31/24 04:00 O2 Del Method BiPAP 03/31/24 04:00 O2 Flow Rate 4 03/30/24 20:00 FiO2 35 03/31/24 03:25 03/30/24 03/31/24 03/31/24 22:59 06:59 14:59 Intake Total 450 / 1300 120 / 1420 Output Total 0 / 2600 Balance 450 / -1300 120 / -1180 Weight last 48 hrs Weight 95.254 kg Weight 89.1 kg Weight 89.494 kg Physical Exam Narrative: comfortable in bed, on nc02-3l heent- nc/at, eomi, anicteric neck supple lungs dull bases heart regular abdomen soft, + bs, ascites ext + b/l edema has improved. neuro a,a, o x 2+, weak Data 03/31/24 04:22 03/31/24 04:22 Micro: Microbiology 03/30/24 09:48 Gram Stain - Final Sputum - Expectorated Sputum 03/28/24 19:42 Urine Culture - Preliminary Urine Catheterized Gram Negative Rods A&P Assessment and plan (1) End stage renal disease on dialysis: 73 yr old female ESRD, PNA, COPD 1. ESRD-for dialysis tomorrow 2. pleural effusions- consider tapping 3. pna- renal dose abx white cell count improving. 4, anemia-elevated ferritin of 1800, she is status post dose of Epogen yesterday. 5. hyponatremia and hyperkalemia- high cortisol level. Improved with dialysis. 6. Consider physical therapy. meds reviewed seen and examined w/ RN- telehealth visit, using AV equipment Plan see above Attestations Medical Necessity Statement*: Per medicine, Anemia ESRD pneumonia pleural effusions cirrhosis. Time Spent in Patient Care: 16 - 35 minutes (>than 50% of time spent in counselling and/or direct pt care on unit). Coding Level of Care Code Acute Code for Chg Fwd Diagnoses End stage renal disease on dialysis N18.6; Z99.2
--- NOTE | 2024-03-31 09:06 | PC.CHAP ---
Pastoral Care Encounter/Spiritual Assessment Type of Contact [] Declined roving department supervisor visit [] Patient/Family/Request visit [] Outpatient visit [] Follow-up visit [] Physician referral [] Code/Alert [x] Routine visit [] Staff referral [] Actively dying [x] Patient sleeping [] Family support [] [] Out of room [] Palliative care [] [] Receiving care in room [] Pre-surgical visit [] Trauma [] Long length of stay [] ICU visit [] Other: Relational/Emotional Strength [] Patient feels connected with others/family/visitors/staff [] Distress [] Loneliness/isolation [] Abandonment Spirituality of Patient [] Person of Joelle [] Attends Islam of their Joelle [] Believes in Prayer [] Reads Bible or Sabianism materials [] There are Spiritual issues to be addressed Extender Interventions [] Prayer [] Active listening [] Non-anxious presence [] Spiritual/emotional support [] Crisis/trauma care [] Spiritual counseling [] Bereavement support [] Provided bereavement packet [] Provided Bible/devotional materials [] Provided toy/stuffed animal, coloring book to patient or family member [] Provided Communion [] Anointing/[place] [] Salvation [] Completed spiritual assessment [] Other: Impact on Illness or Injury [] Angry [] Fearful [] Anxious [] Often cries [] Exhaustion [] Unable to work [] Unable to attend hindu [] Unable to walk/stand [] Unable to read [] Unable to drive [] Unable to eat/drink [] Unable to sleep [] Unable to be with family [] Patient intubated [] Other: Summary Time spent with patient
[2024-03-31] MEDS: polyethylene glycol 3350 Pkt 17 gm PO (09:11)
[2024-03-31] MEDS: pantoprazole 40 mg SDV IVP (09:11)
[2024-03-31] MEDS: folic acid 1 mg Tablet PO (09:12)
[2024-03-31] MEDS: heparin 5,000 unit/mL INJ 1 mL 5000 UNIT SUBCUT ×2 (09:12→22:47)
[2024-03-31] MEDS: aspirin 81 mg EC Tablet PO (09:12)
[2024-03-31] MEDS: magnesium lactate 84 mg Tablet PO (09:12)
[2024-03-31] MEDS: predniSONE 20 mg Tablet 40 MG PO (09:12)
[2024-03-31] MEDS: midodrine 5 mg TABLET 10 MG PO ×2 (09:12→17:31)
[2024-03-31] MEDS: meropenem 500 mg SDV IVP ×2 (09:12→22:47)
--- NOTE | 2024-03-31 10:06 | PC.SOCIAL ---
IMM Update pg 2 of IMM Updated and reviewed w/ patient. Copy provided and copy dated, initialed and placed in chart.
[2024-03-31 11:27] LABS: Glucose Point of Care 119 mg/dL (70-110)
[2024-03-31] MEDS: lactulose oral liq 20 gm/30 mL UDC PO (11:36)
--- NOTE | 2024-03-31 16:43 | P.PN_ITS ---
Subjective 2 Subjective: Patient was seen this morning, she is alert oriented x 2, follow follows command, denies any fevers, no chills does report generalized weakness does report constipation Vitals/I&O/Wt Last Vital Signs Temp 98.3 F 03/31/24 12:00 Pulse 61 03/31/24 15:10 Resp 20 H 03/31/24 15:10 BP 152/78 03/31/24 12:00 Pulse Ox 96 03/31/24 15:10 O2 Del Method Nasal Cannula 03/31/24 15:10 O2 Flow Rate 3 03/31/24 15:10 FiO2 35 03/31/24 03:25 03/31/24 03/31/24 03/31/24 06:59 14:59 22:59 Intake Total 120 / 1420 600 / 600 Balance 120 / -1180 600 / 600 Weight last 48 hrs Weight 95.254 kg Weight 89.1 kg Weight 89.494 kg Physical Exam 2 Const: COMMON NORMALS: no acute distress and patient oriented x3 Resp: COMMON NORMALS: normal respiratory effort, No retractions, No use of accessory muscles and clear to auscultation bilaterally AUSCULTATION: clear to auscultation bilaterally Cardio: COMMON NORMALS: regular rate, regular rhythm, S1 normal heart sound present and S2 normal heart sound present RATE: regular rate RHYTHM: r egular rhythm HEART SOUNDS: S1 normal heart sound present and S2 normal heart sound present GI: COMMON NORMALS: Normal to inspection, nondistended, normoactive bowel sounds present and non-tender Extremity: COMMON NORMALS: no pedal edema Neuro: COMMON NORMALS: patient oriented x3 Psych: COMMON NORMALS: mental status grossly normal Data 03/31/24 04:22 03/31/24 04:22 Micro: Microbiology 03/28/24 19:42 Urine Culture - Final Urine Catheterized Escherichia coli esbl 03/30/24 09:48 Gram Stain - Final Sputum - Expectorated Sputum Sputum Culture - Preliminary A&P Assessment and plan (1) Acute respiratory failure: (2) COPD (chronic obstructive pulmonary disease): (3) PNA (pneumonia): (4) Pleural effusion, bilateral: (5) Heart failure with preserved ejection fraction: (6) End stage renal disease on dialysis: (7) Hypomagnesemia: (8) Hypotension: (9) UTI (urinary tract infection): (10) Transaminitis: Plan Acute hypoxic respiratory failure ? Likely multifactorial -COPD exacerbation ? CHF exacerbation, diastolic, fluid overload ? Pneumonia, with history of ESBL, history of MRSA ? Plan ? Continue vancomycin ? Continue meropenem, urine culture showing ESBL E. coli, will require at least 2 weeks of IV ertapenem 1 g IV every 24 hours ? Continue DuoNeb ? Continue BiPAP therapy ? Continue prednisone -Continue dialysis ? Monitor respiratory status closely Leukocytosis -ESR 63, procalcitonin over 100, CRP 161, ferritin 1866, LDH 296 -Has a history of rheumatoid arthritis, was on immunosuppressive therapy -She has a history of MRSA positive sputum cultures, ESBL UTIs, Amber glabrata, Amber UTI/sputum cultures, history of Staph hominis bacteremia -in July 2023, had extensive infectious workup, she had a bronchoscopy -Was on Bactrim and steroids during that hospitalization ? MTB cultures with normal limits ? PCP cultures within normal limits, ? TB QuantiFERON negative ? Histoplasmosis, Coccidioides negative ? Negative serum Aspergillus Beta D glucan weakly positive -Is on methotrexate, currently immunocompromised -Continue antibiotics as above -Ordered histoplasmosis, Coccidioides, blastomycosis antigens, PCP PCR, beta D glucan, CT angio chest abdomen pelvis ? Does have sacral DTI, stage II COPD exacerbation ? Uses 3.5 L of oxygen at baseline Diastolic CHF exacerbation -Has bilateral pleural effusions ? Dialysis as above next End-stage renal disease on dialysis, continue dialysis Hypotension ? Continue midodrine UTI, continue meropenem Acute encephalopathy, resolving Anemia, monitor, show GI bleed, monitor hemoglobin Type II diabetes mellitus, insulin sliding scale History of A-fib, continue amiodarone, telemetry Sacral DTI, stage II, over sacrum, monitor History of CKD, end-stage renal disease on dialysis History of immunocompromise state, on methotrexate History of GI bleed, off anticoagulation Limited code, no intubation or ventilation Heparin for DVT prophylaxis Protonix for GI prophylaxis Aspiration precautions, dysphagia level 4 diet Plan for today, plan for today, continue IV antibiotics, ESBL infection, ESBL E. coli UTI Attestations 2 Medical Necessity Statement*: Patient requires hospitalization for ESBL E. coli UTI infection requiring ertapenem 1 g IV every 24 hours Diagnoses Acute respiratory failure J96.00 COPD (chronic obstructive pulmonary disease) J44.9 PNA (pneumonia) J18.9 Pleural effusion, bilateral J90 Heart failure with preserved ejection fraction I50.30 End stage renal disease on dialysis N18.6; Z99.2 Hypomagnesemia E83.42 Hypotension I95.9 UTI (urinary tract infection) N39.0 Transaminitis R74.01
[2024-03-31 16:52] LABS: Glucose Point of Care 182 mg/dL (70-110)
[2024-03-31] MEDS: insulin lispro 100 unit/1 mL SUBCUT ×2 (17:31→22:47)
--- NOTE | 2024-03-31 21:05 | XRR_ITS ---
PROCEDURE INFORMATION: Exam: XR Chest Exam date and time: 03/31/2024 9:17 PM Age: 73 years old Clinical indication: Device placement; Picc; Prior surgery; Surgery date: 6+ months; Surgery type: Dialysis cath; Additional info: Picc line placement TECHNIQUE: Imaging protocol: Radiologic exam of the chest. Views: 1 view. COMPARISON: CT chest abdpel w/*[id number] 03/30/2024 5:08 PM FINDINGS: Tubes, catheters and devices: Left-sided PICC line tip overlies the right atrium. Dialysis catheter tip overlies the lower SVC. Lungs: Central vascular prominence with mild pulmonary edema. Bibasilar atelectasis. Pleural spaces: Moderate right and small left pleural effusion. No pneumothorax. Heart/Mediastinum: Cardiomegaly. Bones/joints: Unremarkable. XR/XR chest 1V portable [id number] IMPRESSION: 1. Left-sided PICC line tip overlies the right atrium. 2. Moderate right and small left pleural effusion. No pneumothorax. 3. Central vascular prominence with mild pulmonary edema. Bibasilar atelectasis.
[2024-03-31 21:42] LABS: Glucose Point of Care 200 mg/dL (70-110)
--- NOTE | 2024-03-31 22:09 | XRR_ITS ---
PROCEDURE INFORMATION: Exam: XR Chest Exam date and time: 03/31/2024 10:17 PM Age: 73 years old Clinical indication: Device placement; Picc; Prior surgery; Surgery date: 6+ months; Surgery type: Dialysis cath; Additional info: Picc line placement lt side TECHNIQUE: Imaging protocol: Radiologic exam of the chest. Views: 1 view. COMPARISON: CR (CHEST, ) 03/31/2024 9:17 PM FINDINGS: Tubes, catheters and devices: Left-sided PICC line tip overlies the region of the mid SVC. Dialysis catheter tip overlies the lower SVC. Lungs: Central vascular prominence with mild pulmonary edema. Bibasilar atelectasis. Pleural spaces: Moderate right and small left pleural effusion. No pneumothorax. Heart/Mediastinum: Cardiomegaly. Bones/joints: Unremarkable. XR/XR chest 1V portable [id number] IMPRESSION: 1. Left-sided PICC line tip overlies the region of the mid SVC. 2. Moderate right and small left pleural effusion. No pneumothorax. 3. Central vascular prominence with mild pulmonary edema. Bibasilar atelectasis.
[2024-03-31] MEDS: sertraline 100 mg Tablet PO (22:49)
--- NOTE | 2024-03-31 23:11 | PC.NURSE ---
Meds scheduled for 2100 were delayed due to placement of a PICC line. Dr. Marie aware. Pt's blood pressure was 176/75, Dr. Marie gave order to hold scheduled dose of midodrine.
[2024-04-01] VITALS (15 sets, daily range): BP systolic 116–172; BP diastolic 48–77; PULSE 53–115; RESP 16–26; TEMP 36.4–36.7; O2SAT 93–100
[2024-04-01] MEDS: ipratropium-albuterol 3 mL Neb INHALATION ×6 (00:24→23:50)
[2024-04-01 03:04] LABS: Basophils % 0.1 %; Hematocrit 28.6 % (36-47); Lymphocytes # 0.2 10^3/uL (0.8-4.8); Lymphocytes % 1.9 %; Mean Corpuscular HGB Conc 30.4 g/dL (30-55); Mean Corpuscular Hemoglobin 31.9 pg (27-33); Mean Corpuscular Volume 104.8 fl (85-98); Mean Platelet Volume 9.8 fL (7.4-10.4); Monocytes # 0.3 10^3/uL (0.2-0.9); Monocytes % 3.3 %; Neutrophils # 9.75 10^3/uL (1.8-7.7); Neutrophils % 93.9 %; Nucleated Red Blood Cells % 0 %; Platelet Count 173 10^3/cmm (157-399); Red Blood Count 2.73 10^6/uL (3.85-5.65); Red Cell Distribution Width 17.7 % (12.1-15.1); White Blood Count 10.38 10^3/uL (3.29-11.43)
[2024-04-01 03:33] LABS: Alanine Aminotransferase 23 U/L (0-33); Albumin Level 2.9 g/dL (3.5-5.2); Alkaline Phosphatase 177 U/L (35-105); Blood Urea Nitrogen 39 mg/dL (8-23); Calcium 9.2 mg/dL (8.5-10.5); Carbon Dioxide 22 mmol/L (22-29); Chloride 99 mmol/L (98-107); Creatinine Clr Calc Pharmacy 19.7643; Globulin 3.4 g/dL (1.3-4.6); Glucose 131 mg/dL (65-115); Osmolality Calculated 293 mOsm/kg (285-295); Phosphorus 4.3 mg/dL (2.5-4.5); Sodium 136 mmol/L (136-145); Total Bilirubin 0.3 mg/dL (0.15-1.2); Total Protein 6.3 g/dL (6.6-8.7)
[2024-04-01 03:34] LABS: Procalcitonin 56.03 ng/mL (0-0.5); Vancomycin Random 24.4 ug/mL (20.0-40.0)
[2024-04-01 03:38] LABS: Anion Gap 19.8 (5-19); Potassium 4.8 mmol/L (3.5-5.1)
[2024-04-01 03:39] LABS: Aspartate Amino Transferase 29 U/L (0-32)
[2024-04-01 04:04] LABS: NT Pro B Type Natriuretic Pept 61523 pg/mL (0-450)
[2024-04-01] MEDS: levothyroxine 150 mcg Tablet PO (06:01)
[2024-04-01] MEDS: amiodarone 200 mg Tablet PO (06:01)
[2024-04-01 06:20] LABS: Glucose Point of Care 157 mg/dL (70-110)
[2024-04-01] MEDS: budesonide 0.5 mg/2 mL Neb INHALATION ×2 (08:01→20:02)
--- NOTE | 2024-04-01 08:34 | P.PN_ITS ---
Subjective 2 Subjective: The patient was seen and examined. She complains of throat pain still requiring nasal cannula oxygen. She uses oxygen at home. She complains of urinary and stool incontinence. She has no edema. Poor appetite. Medications: Reviewed: Yes Medication Review Details: Current Medications Hydrocodone Bitart/Acetaminophen (Hydrocodone-Acetaminophen 5-325 Mg Tablet) 1 tab PO TID PRN PRN Reason: MODERATE PAIN Last Admin: 03/31/24 22:48 Dose: 1 tab Albuterol/Ipratropium (Ipratropium-Albuterol 3 Ml Neb) 3 ml INHALATION Q4H.[facility] Last Admin: 04/01/24 08:01 Dose: 3 ml Amiodarone HCl (Amiodarone 200 Mg Tablet) 200 mg PO DAILY@07 [facility] Last Admin: 04/01/24 06:01 Dose: 200 mg Aspirin (Aspirin 81 Mg Ec Tablet) 81 mg PO DAILY [facility] Last Admin: 03/31/24 09:12 Dose: 81 mg Budesonide (Budesonide 0.5 Mg/2 Ml Neb) 0.5 mg INHALATION BID.RESPIRATORY [facility] Last Admin: 04/01/24 08:01 Dose: 0.5 mg Folic Acid (Folic Acid 1 Mg Tablet) 1 mg PO DAILY [facility] Last Admin: 03/31/24 09:12 Dose: 1 mg Glucagon (Glucagon 1 Mg/Ml Kit 1 Ml) 1 mg IM ONCE PRN; Protocol PRN Reason: Adult Acute Hypoglycemia Nursing Prot. Heparin Sodium (Porcine) (Heparin 5,000 Unit/Ml Inj 1 Ml) 5,000 unit SUBCUT Q12H [facility] Last Admin: 03/31/24 22:47 Dose: 5,000 unit Vancomycin HCl 1,000 mg/ (Sodium Chloride) 250 mls @ 250 mls/hr IV DIALYSIS [facility]; Protocol Last Infusion: 03/30/24 21:09 Dose: Infused Sodium Chloride (Sodium Chloride 0.9%) 1,000 mls @ 0 mls/hr IV .Q0M PRN PRN Reason: hypotension or symptomatic Last Infusion: 03/28/24 17:44 Dose: Infused Dextrose (D5w) 500 mls @ 0 mls/hr IV ONCE PRN; Protocol PRN Reason: Adult Acute Hypoglycemia Prot Dextrose (D10w) 125 mls @ 750 mls/hr IV PRN PRN; Protocol PRN Reason: Adult Acute Hypoglycemia Nursing Protocol Dextrose (D10w) 250 mls @ 1,000 mls/hr IV PRN PRN; Protocol PRN Reason: Adult Acute Hypoglycemia Nursing Protocol Albumin Human (Albumin) 12.5 gm in 50 mls @ 60 mls/hr IV PRN PRN PRN Reason: Hypotension and/or symptomatic Last Infusion: 03/31/24 22:27 Dose: Infused Insulin Human Lispro (Insulin Lispro 100 Unit/1 Ml) 0 unit SUBCUT WM&BEDTIME [facility]; Protocol Last Admin: 03/31/24 22:47 Dose: 4 unit Levothyroxine Sodium (Levothyroxine 150 Mcg Tablet) 150 mcg PO DAILY@06 [facility] Last Admin: 04/01/24 06:01 Dose: 150 mcg Magnesium Lactate (Magnesium Lactate 84 Mg Tablet) 84 mg PO DAILY@08 [facility] Last Admin: 03/31/24 09:12 Dose: 84 mg Meropenem (Meropenem 500 Mg Sdv) 500 mg IVP Q12H [facility] Last Admin: 03/31/24 22:47 Dose: 500 mg Midodrine (Midodrine 5 Mg Tablet) 10 mg PO TID [facility] Last Admin: 03/31/24 23:11 Dose: Not Given Non-Formulary Medication (Pyridoxine (Vitamin B6) [Vitamin B-6]) 500 mg PO DAILY@08 [facility] Nystatin (Nystatin Powder 15 Gm Btl) 1 applic TOPICAL BID PRN PRN Reason: IRRITATION Ondansetron HCl (Ondansetron 2 Mg/Ml Sdv 2 Ml) 4 mg IVP Q6H PRN PRN Reason: NAUSEA AND VOMITING Last Admin: 03/31/24 02:26 Dose: 4 mg Pantoprazole Sodium (Pantoprazole 40 Mg Sdv) 40 mg IVP DAILY [facility] Last Admin: 03/31/24 09:11 Dose: 40 mg Polyethylene Glycol (Polyethylene Glycol 3350 Pkt 17 Gm) 17 gm PO DAILY [facility] Last Admin: 03/31/24 09:11 Dose: 17 gm Prednisone (Prednisone 20 Mg Tablet) 40 mg PO DAILY [facility] Last Admin: 03/31/24 09:12 Dose: 40 mg Sertraline HCl (Sertraline 100 Mg Tablet) 100 mg PO BEDTIME [facility] Last Admin: 03/31/24 22:49 Dose: 100 mg Vitals/I&O/Wt Last Vital Signs Temp 97.8 F 04/01/24 07:36 Pulse 56 L 04/01/24 08:00 Resp 16 04/01/24 08:00 BP 143/48 04/01/24 07:36 Pulse Ox 100 04/01/24 08:00 O2 Del Method Nasal Cannula 04/01/24 08:00 O2 Flow Rate 3.5 04/01/24 08:00 FiO2 4 04/01/24 05:15 03/31/24 04/01/24 04/01/24 22:59 06:59 14:59 Intake Total 290 / 890 Balance 290 / 890 Weight last 48 hrs Weight 92.76 kg Weight 95.254 kg Weight 89.1 kg Physical Exam 2 Narrative: comfortable in bed, on nc02 at 3l heent- nc/at, eomi, anicteric neck supple lungs dull bases and crackles heart regular abdomen soft, + bs, ascites ext + b/l edema has improved. neuro a,a, o x 3, weak Right anterior chest wall permacath Data 04/01/24 02:26 04/01/24 02:26 Micro: Microbiology 03/28/24 19:42 Urine Culture - Final Urine Catheterized Escherichia coli esbl 03/30/24 09:48 Gram Stain - Final Sputum - Expectorated Sputum Sputum Culture - Preliminary A&P Assessment and plan (1) End stage renal disease on dialysis: 73 yr old female ESRD, PNA, COPD 1. ESRD-for dialysis today 2. pleural effusions-Per medicine 3. pna- renal dose abx white cell count improving. Check vancomycin level today redose as needed. 4, anemia-elevated ferritin of 1800, will give Epogen today 5. Blood pressure is well-controlled 6. Consider physical therapy. meds reviewed seen and examined w/ RN- telehealth visit, using AV equipment Plan see above Attestations 2 Medical Necessity Statement*: Antibiotics for pneumonia. ESRD. Time Spent in Patient Care: 16 - 35 minutes (>than 50% of time sp ent in counselling and/or direct pt care on unit) . Coding Level of Care Code Acute Code for Chg Fwd Diagnoses End stage renal disease on dialysis N18.6; Z99.2
[2024-04-01] MEDS: magnesium lactate 84 mg Tablet PO (08:54)
[2024-04-01] MEDS: pantoprazole 40 mg SDV IVP (08:54)
[2024-04-01] MEDS: meropenem 500 mg SDV IVP ×2 (08:54→19:55)
[2024-04-01] MEDS: predniSONE 20 mg Tablet 40 MG PO (08:54)
[2024-04-01] MEDS: folic acid 1 mg Tablet PO (08:55)
[2024-04-01] MEDS: insulin lispro 100 unit/1 mL SUBCUT ×2 (08:55→17:28)
[2024-04-01] MEDS: heparin 5,000 unit/mL INJ 1 mL 5000 UNIT SUBCUT ×2 (08:55→19:55)
[2024-04-01] MEDS: aspirin 81 mg EC Tablet PO (08:55)
[2024-04-01] MEDS: polyethylene glycol 3350 Pkt 17 gm PO (08:56)
[2024-04-01] MEDS: midodrine 5 mg TABLET 10 MG PO ×3 (08:58→21:30)
--- NOTE | 2024-04-01 09:03 | PC.CHAP ---
Pastoral Care Encounter/Spiritual Assessment Type of Contact [] Declined child and youth program assistant visit [] Patient/Family/Request visit [] Outpatient visit [] Follow-up visit [] Physician referral [] Code/Alert [] Routine visit [] Staff referral [] Actively dying [x] Patient sleeping [] Family support [] [] Out of room [] Palliative care [] [] Receiving care in room [] Pre-surgical visit [] Trauma [] Long length of stay [] ICU visit [] Other: Relational/Emotional Strength [] Patient feels connected with others/family/visitors/staff [] Distress [] Loneliness/isolation [] Abandonment Spirituality of Patient [] Person of Joelle [] Attends Mormon of their Joelle [] Believes in Prayer [] Reads Bible or Worship materials [] There are Spiritual issues to be addressed Garment Fitter Interventions [] Prayer [] Active listening [] Non-anxious presence [] Spiritual/emotional support [] Crisis/trauma care [] Spiritual counseling [] Bereavement support [] Provided bereavement packet [] Provided Bible/devotional materials [] Provided toy/stuffed animal, coloring book to patient or family member [] Provided Communion [] Anointing/[place] [] Salvation [] Completed spiritual assessment [] Other: Impact on Illness or Injury [] Angry [] Fearful [] Anxious [] Often cries [] Exhaustion [] Unable to work [] Unable to attend uatsdin [] Unable to walk/stand [] Unable to read [] Unable to drive [] Unable to eat/drink [] Unable to sleep [] Unable to be with family [] Patient intubated [] Other: Summary Time spent with patient
[2024-04-01 10:34] LABS: Glucose Point of Care 138 mg/dL (70-110)
[2024-04-01] MEDS: HYDROcodone-acetaminophen 5-325 mg Tablet 1 TAB PO ×2 (11:09→19:47)
--- NOTE | 2024-04-01 14:15 | PHA.VACGOAL ---
Vancomycin Goal - Goal Vancomycin Goal:: 10-15 mg/L Vancomycin Indication:: Pneumonia - Therapy Current therapy:: Meropenem Day of therpy:: Day 5 Actual body weight (kg): 204 lb 8 oz [place] body weight: 52.4 KG Dosing weight (kg): 68.5 - Data Labs: WBC 10.38 10^3/uL (3.29-11.43) 04/01/24 02:26 Corrected WBC Cancelled 03/28/24 02:48 RBC 2.73 10^6/uL (3.85-5.65) L 04/01/24 02:26 Hgb 8.70 g/dL (11.27-16.99) L 04/01/24 02:26 Hct 28.6 % (36-47) L 04/01/24 02:26 MCV 104.8 fl (85-98) H 04/01/24 02:26 MCH 31.9 pg (27-33) 04/01/24 02:26 MCHC 30.4 g/dL (30-55) 04/01/24 02:26 RDW 17.7 % (12.1-15.1) H 04/01/24 02:26 Sodium 136 mmol/L (136-145) 04/01/24 02:26 Potassium 4.8 mmol/L (3.5-5.1) 04/01/24 02:26 Chloride 99 mmol/L (98-107) 04/01/24 02:26 Carbon Dioxide 22 mmol/L (22-29) 04/01/24 02:26 Anion Gap 19.8 (5-19) H 04/01/24 02:26 BUN 39 mg/dL (8-23) H 04/01/24 02:26 Creatinine 2.7 mg/dL (0.5-0.9) H 04/01/24 02:26 GFR Calculation Not Reportable 04/01/24 02:26 Laboratory Tests 04/01/24 02:26 Random Vancomycin 24.4 Last dialysis session:: Last session (DIALYSIS SCHEDULED 04/01) Treatment plan:: continue Regimen:: VANCOMYCIN 1000 MG AFTER DIALYSIS ON DAYS RECEIVING DIALYSIS Follow up:: VANCOMYCIN RANDOMN LEVELS TO BE DRAWN IN THE AM PRIOR TO DIALYSIS
[2024-04-01 16:32] LABS: Glucose Point of Care 183 mg/dL (70-110)
--- NOTE | 2024-04-01 16:42 | P.PN_ITS ---
Subjective 2 Subjective: Patient was seen this morning, she is alert oriented x 3, following all commands, she reports a large bowel movement yesterday, feels significantly better, we discussed her ESBL E. coli UTI, she is going to need at least 2 weeks of IV antibiotics, he has a history of immunocompromise state, is on methotrexate she voices understanding, Vitals/I&O/Wt Last Vital Signs Temp 97.7 F 04/01/24 11:22 Pulse 111 H 04/01/24 15:24 Resp 16 04/01/24 15:24 BP 121/77 04/01/24 15:24 Pulse Ox 93 04/01/24 15:24 O2 Del Method Nasal Cannula 04/01/24 15:24 O2 Flow Rate 4 04/01/24 15:17 FiO2 4 04/01/24 05:15 04/01/24 04/01/24 04/01/24 06:59 14:59 22:59 Intake Total 120 / 120 Balance 120 / 120 Weight last 48 hrs Weight 92.76 kg Weight 95.254 kg Physical Exam 2 Const: COMMON NORMALS: no acute distress and patient oriented x3 Resp: COMMON NORMALS: normal respiratory effort, No retractions, No use of accessory muscles and clear to auscultation bilaterally AUSCULTATION: clear to auscultation bilaterally Cardio: COMMON NORMALS: regular rate, regular rhythm, S1 normal heart sound present and S2 normal heart sound present RATE: regular rate RHYTHM: r egular rhythm HEART SOUNDS: S1 normal heart sound present and S2 normal heart sound present GI: COMMON NORMALS: Normal to inspection, nondistended, normoactive bowel sounds present and non-tender Extremity: COMMON NORMALS: no pedal edema Neuro: COMMON NORMALS: patient oriented x3 Psych: COMMON NORMALS: mental status grossly normal Data 04/01/24 02:26 04/01/24 02:26 Micro: Microbiology 03/30/24 09:48 Gram Stain - Final Sputum - Expectorated Sputum Sputum Culture - Final 03/28/24 19:42 Urine Culture - Final Urine Catheterized Escherichia coli esbl A&P Assessment and plan (1) Acute respiratory failure: (2) COPD (chronic obstructive pulmonary disease): (3) PNA (pneumonia): (4) Pleural effusion, bilateral: (5) Heart failure with preserved ejection fraction: (6) End stage renal disease on dialysis: (7) Hypomagnesemia: (8) Hypotension: (9) UTI (urinary tract infection): (10) Transaminitis: Plan Acute hypoxic respiratory failure ? Likely multifactorial -COPD exacerbation ? CHF exacerbation, diastolic, fluid overload ? Pneumonia, with history of ESBL, history of MRSA ? Plan ? Discontinue vancomycin ? Continue meropenem, urine culture showing ESBL E. coli, will require at least 2 weeks of IV ertapenem 500 mg IV every 24 hours, PICC line placed ? Continue DuoNeb ? Continue BiPAP therapy ? Continue prednisone, will taper -Continue dialysis ? Monitor respiratory status closely Leukocytosis, likely secondary to ESBL E. coli UTI -ESR 63, procalcitonin over 100, CRP 161, ferritin 1866, LDH 296 -Has a history of rheumatoid arthritis, was on immunosuppressive therapy -She has a history of MRSA positive sputum cultures, ESBL UTIs, Amber glabrata, Amber UTI/sputum cultures, history of Staph hominis bacteremia -in July 2023, had extensive infectious workup, she had a bronchoscopy -Was on Bactrim and steroids during that hospitalization ? MTB cultures with normal limits ? PCP cultures within normal limits, ? TB QuantiFERON negative ? Histoplasmosis, Coccidioides negative ? Negative serum Aspergillus Beta D glucan weakly positive -Is on methotrexate, currently immunocompromised -Continue antibiotics as above -Ordered histoplasmosis, Coccidioides, blastomycosis antigens, PCP PCR, beta D glucan, CT angio chest abdomen pelvis ? Does have sacral DTI, stage II COPD exacerbation ? Uses 3.5 L of oxygen at baseline Diastolic CHF exacerbation -Has bilateral pleural effusions ? Dialysis as above next End-stage renal disease on dialysis, continue dialysis Hypotension ? Continue midodrine UTI, continue meropenem Acute encephalopathy, resolving Anemia, monitor, show GI bleed, monitor hemoglobin Type II diabetes mellitus, insulin sliding scale History of A-fib, continue amiodarone, telemetry Sacral DTI, stage II, over sacrum, monitor History of CKD, end-stage renal disease on dialysis History of immunocompromise state, on methotrexate History of GI bleed, off anticoagulation Limited code, no intubation or ventilation Heparin for DVT prophylaxis Protonix for GI prophylaxis Aspiration precautions, dysphagia level 4 diet Patient requires hospitalization for ESBL E. coli UTI, Attestations 2 Medical Necessity Statement*: Patient requires hospitalization for ESBL E. coli UTI Diagnoses Acute respiratory failure J96.00 COPD (chronic obstructive pulmonary disease) J44.9 PNA (pneumonia) J18.9 Pleural effusion, bilateral J90 Heart failure with preserved ejection fraction I50.30 End stage renal disease on dialysis N18.6; Z99.2 Hypomagnesemia E83.42 Hypotension I95.9 UTI (urinary tract infection) N39.0 Transaminitis R74.01
[2024-04-01 21:10] LABS: Glucose Point of Care 109 mg/dL (70-110)
[2024-04-01] MEDS: sertraline 100 mg Tablet PO (21:27)
[2024-04-02] VITALS (7 sets, daily range): BP systolic 113–123; BP diastolic 69–75; PULSE 98–114; RESP 15–22; TEMP 36.4–36.8; O2SAT 96–100
[2024-04-02] MEDS: ipratropium-albuterol 3 mL Neb INHALATION ×2 (04:23→08:41)
[2024-04-02] MEDS: HYDROcodone-acetaminophen 5-325 mg Tablet 1 TAB PO (05:20)
[2024-04-02] MEDS: levothyroxine 150 mcg Tablet PO (05:20)
[2024-04-02] MEDS: ondansetron 2 mg/ML SDV 2 mL 4 MG IVP (05:20)
[2024-04-02 05:37] LABS: Vancomycin Random 19.5 ug/mL (20.0-40.0)
[2024-04-02] MEDS: amiodarone 200 mg Tablet PO (06:03)
[2024-04-02 06:29] LABS: Glucose Point of Care 118 mg/dL (70-110)
[2024-04-02 07:13] LABS: SARS Covid-2 Antigen negative (Negative)
[2024-04-02] MEDS: budesonide 0.5 mg/2 mL Neb INHALATION (08:42)
[2024-04-02] MEDS: aspirin 81 mg EC Tablet PO (08:59)
[2024-04-02] MEDS: midodrine 5 mg TABLET 10 MG PO (08:59)
[2024-04-02] MEDS: folic acid 1 mg Tablet PO (08:59)
[2024-04-02] MEDS: predniSONE 20 mg Tablet 40 MG PO (08:59)
[2024-04-02] MEDS: polyethylene glycol 3350 Pkt 17 gm PO (09:00)
[2024-04-02] MEDS: heparin 5,000 unit/mL INJ 1 mL 5000 UNIT SUBCUT (09:00)
[2024-04-02] MEDS: pantoprazole 40 mg SDV IVP (09:00)
[2024-04-02] MEDS: meropenem 500 mg SDV IVP (09:00)
[2024-04-02] MEDS: magnesium lactate 84 mg Tablet PO (09:00)
--- NOTE | 2024-04-02 09:04 | PM.PN ---
Subjective Subjective: feels better. more awake. continues on iv abx Medications: Reviewed: Yes Medication Review Details: Current Medications Hydrocodone Bitart/Acetaminophen (Hydrocodone-Acetaminophen 5-325 Mg Tablet) 1 tab PO TID PRN PRN Reason: MODERATE PAIN Last Admin: 04/02/24 05:20 Dose: 1 tab Albuterol/Ipratropium (Ipratropium-Albuterol 3 Ml Neb) 3 ml INHALATION Q4H.RESPIRATORY [facility] Last Admin: 04/02/24 08:41 Dose: 3 ml Amiodarone HCl (Amiodarone 200 Mg Tablet) 200 mg PO DAILY@07 JOCE Last Admin: 04/02/24 06:03 Dose: 200 mg Aspirin (Aspirin 81 Mg Ec Tablet) 81 mg PO DAILY [facility] Last Admin: 04/02/24 08:59 Dose: 81 mg Budesonide (Budesonide 0.5 Mg/2 Ml Neb) 0.5 mg INHALATION BID.RESPIRATORY [facility] Last Admin: 04/02/24 08:42 Dose: 0.5 mg Folic Acid (Folic Acid 1 Mg Tablet) 1 mg PO DAILY [facility] Last Admin: 04/02/24 08:59 Dose: 1 mg Glucagon (Glucagon 1 Mg/Ml Kit 1 Ml) 1 mg IM ONCE PRN; Protocol PRN Reason: Adult Acute Hypoglycemia Nursing Prot. Heparin Sodium (Porcine) (Heparin 5,000 Unit/Ml Inj 1 Ml) 5,000 unit SUBCUT Q12H [facility] Last Admin: 04/02/24 09:00 Dose: 5,000 unit Sodium Chloride (Sodium Chloride 0.9%) 1,000 mls @ 0 mls/hr IV .Q0M PRN PRN Reason: hypotension or symptomatic Last Infusion: 03/28/24 17:44 Dose: Infused Dextrose (D5w) 500 mls @ 0 mls/hr IV ONCE PRN; Protocol PRN Reason: Adult Acute Hypoglycemia Prot Dextrose (D10w) 125 mls @ 750 mls/hr IV PRN PRN; Protocol PRN Reason: Adult Acute Hypoglycemia Nursing Protocol Dextrose (D10w) 250 mls @ 1,000 mls/hr IV PRN PRN; Protocol PRN Reason: Adult Acute Hypoglycemia Nursing Protocol Albumin Human (Albumin) 12.5 gm in 50 mls @ 60 mls/hr IV PRN PRN PRN Reason: Hypotension and/or symptomatic Last Infusion: 03/31/24 22:27 Dose: Infused Insulin Human Lispro (Insulin Lispro 100 Unit/1 Ml) 0 unit SUBCUT WM&BEDTIME [facility]; Protocol Last Admin: 04/02/24 07:33 Dose: Not Given Levothyroxine Sodium (Levothyroxine 150 Mcg Tablet) 150 mcg PO DAILY@06 [facility] Last Admin: 04/02/24 05:20 Dose: 150 mcg Magnesium Lactate (Magnesium Lactate 84 Mg Tablet) 84 mg PO DAILY@08 [facility] Last Admin: 04/02/24 09:00 Dose: 84 mg Meropenem (Meropenem 500 Mg Sdv) 500 mg IVP Q12H [facility] Last Admin: 04/02/24 09:00 Dose: 500 mg Midodrine (Midodrine 5 Mg Tablet) 10 mg PO TID [facility] Last Admin: 04/02/24 08:59 Dose: 10 mg Nystatin (Nystatin Powder 15 Gm Btl) 1 applic TOPICAL BID PRN PRN Reason: IRRITATION Ondansetron HCl (Ondansetron 2 Mg/Ml Sdv 2 Ml) 4 mg IVP Q6H PRN PRN Reason: NAUSEA AND VOMITING Last Admin: 04/02/24 05:20 Dose: 4 mg Pantoprazole Sodium (Pantoprazole 40 Mg Sdv) 40 mg IVP DAILY [facility] Last Admin: 04/02/24 09:00 Dose: 40 mg Polyethylene Glycol (Polyethylene Glycol 3350 Pkt 17 Gm) 17 gm PO DAILY [facility] Last Admin: 04/02/24 09:00 Dose: 17 gm Prednisone (Prednisone 20 Mg Tablet) 40 mg PO DAILY [facility] Last Admin: 04/02/24 08:59 Dose: 40 mg Sertraline HCl (Sertraline 100 Mg Tablet) 100 mg PO BEDTIME [facility] Last Admin: 04/01/24 21:27 Dose: 100 mg Vitals/I&O/Wt Last Vital Signs Temp 97.6 F 04/02/24 07:28 Pulse 104 H 04/02/24 08:00 Resp 18 04/02/24 08:00 BP 115/74 04/02/24 07:28 Pulse Ox 100 04/02/24 08:00 O2 Del Method Nasal Cannula 04/02/24 08:00 O2 Flow Rate 3 04/02/24 08:00 FiO2 35 04/02/24 04:24 04/01/24 04/02/24 04/02/24 22:59 06:59 14:59 Intake Total 240 / 360 120 / 120 Balance 240 / 360 120 / 120 Weight last 48 hrs Weight 93.157 kg Weight 92.76 kg Physical Exam Narrative: comfortable in bed, on nc02 at 3l heent- nc/at, eomi, anicteric neck supple lungs improved air movement b/l heart regular abdomen soft, + bs, ascites ext + b/l edema has improved. neuro a,a, o x 3, weak Right anterior chest wall permacath Data 04/01/24 02:26 04/01/24 02:26 Micro: Microbiology 03/30/24 09:48 Gram Stain - Final Sputum - Expectorated Sputum Sputum Culture - Final A&P Assessment and plan (1) End stage renal disease on dialysis: 73 yr old female ESRD, PNA, COPD 1. ESRD-for dialysis t,t,s 2. pleural effusions-Per medicine 3. pna- renal dose abx white cell count improving. if still needs vanco, then please keep tough under 19- we can give a dose tomorrow if needed per notes -continues to need iv abx 4, anemia-elevated ferritin of 1800, s/p Epogen on 04/01/24 5. Blood pressure is well-controlled 6. Consider physical therapy. meds reviewed seen and examined w/ RN- telehealth visit, using AV equipment Plan see above Attestations Medical Necessity Statement*: abx for pna, esrd, anemia Time Spent in Patient Care: 16 - 35 minutes (>than 50% of time spent in counselling and/or direct pt care on unit). Coding Level of Care Code Acute Code for Chg Fwd Diagnoses End stage renal disease on dialysis N18.6; Z99.2
--- NOTE | 2024-04-02 09:56 | PC.SOCIAL ---
IMM Update pg 2 of IMM Updated and reviewed w/patient. Copy provided and copy dated, initialed and placed in chart.
--- NOTE | 2024-04-02 11:09 | P.DS_ITS ---
Discharge Providers Date of Admission: 03/28/24 07:45 Date of Discharge: April 02, 2024 Attending Provider at Admission: Dennis Simpson MD Attending Provider at Discharge: Jace Renee MD Diagnoses at Discharge Discharge Diagnosis (1) End stage renal disease on dialysis: Status: Chronic Reason for Visit Reason for Visit: resp distress Hospital Course Hospital Course Myesha Parker is a 73 year old female resident of [facility] assisted who presents to the hospital with respiratory failure. I discussed her case with her , the ER physician, as well as the patient. The patient could not give good history as she was on BiPAP. From the nursing facility, she apparently had a decreased blood pressure yesterday and was not feeling good. She missed dialysis. She typically gets this on Sunday and Sunday. She was not eating and drinking well. Earlier this morning her oxygen saturation was lower than usual, on her chronic 3-1/2 L per nasal cannula. They increased her oxygen but secondary to her respiratory distress with low oxygen level she was sent to the emergency department for evaluation. They reports she frequently has low blood pressure even when she is feeling well, and that midodrine is given for this. She was supposed to have dialysis yesterday, but secondary to her low blood pressure it was recommended she not go. Patient has a litany of past medical problems the biggest of which are end-stage renal disease, recent hospitalization with discharge on 03/19, chronic respiratory failure on oxygen, COPD, history of ESBL and MRSA, inflammatory arthritis on methotrexate. In the emergency department, she received some Rocephin, Zithromax and was placed on BiPAP. Upon my evaluation I have ordered a urinalysis, cortisol level, supplemented her low magnesium, obtained a blood culture and urine culture, and secondary to past history of ordered vancomycin and meropenem for her antibiotics. Patient was admitted to [facility] for acute hypoxic respiratory failure, likely multifactorial from COPD exacerbation, CHF exacerbation, pne umonia, she was admitted to the ICU, requiring BiPAP therapy, steroid therapy, dialysis, broad-spectrum antibiotic therapy. Overall patient's clinical condition improved, discharged to [facility] facility Patient was found to have ESBL E. coli UTI, with immunocompromise state, PICC line placed, discharged on 13 remaining days of ertapenem 500 mg IV every 24 hours, on hemodialysis day administer at least 6 hours prior to hemodialysis or wait until after hemodialysis Leukocytosis, likely secondary to ESBL E. coli UTI -ESR 63, procalcitonin over 100, CRP 161, ferritin 1866, LDH 296 -Has a history of rheumatoid arthritis, was on immunosuppressive therapy -She has a history of MRSA positive sputum cultures, ESBL UTIs, Amber glabrata, Amber UTI/sputum cultures, history of Staph hominis bacteremia -in July 2023, had extensive infectious workup, she had a bronchoscopy -Was on Bactrim and steroids during that hospitalization ? MTB cultures with normal limits ? PCP cultures within normal limits, ? TB QuantiFERON negative ? Histoplasmosis, Coccidioides negative ? Negative serum Aspergillus Beta D glucan weakly positive -Is on methotrexate, currently immunocompromised -Continue antibiotics as above -Ordered histoplasmosis, Coccidioides, blastomycosis antigens, PCP PCR, beta D glucan, CT angio chest abdomen pelvis -Monitor as outpatient ? Does have sacral DTI, stage II, continue repositioning - discharged on low-dose for anxiety Xanax, to be used as needed -Discharge on low-dose insulin sliding scale ? COPD exacerbation, discharged on prednisone burst ? Diastolic CHF exacerbation, continue home dialysis schedule, Sunday//Sunday ? Hypotension, continue midodrine as outpatient ? Diet, dysphagia level 6 diet, soft and bite-size, liquids mildly thick Physical Exam Const: COMMON NORMALS: no acute distress and patient oriented x3 Resp: COMMON NORMALS: normal respiratory effort, No retractions, No use of accessory muscles and clear to auscultation bilaterally AUSCULTATION: clear to auscultation bilaterally Cardio: COMMON NORMALS: regular rate, regular rhythm, S1 normal heart sound present and S2 normal heart sound present RATE: regular rate RHYTHM: regular rhythm HEART SOUNDS: S1 normal heart sound present and S2 normal h eart sound present GI: COMMON NORMALS: Normal to inspection, nondistended, normoactive bowel sounds present and non-tender Extremity: COMMON NORMALS: no pedal edema Neuro: COMMON NORMALS: patient oriented x3 Psych: COMMON NORMALS: mental status grossly normal Discharge Data Studies Completed and Pending Completed Studies During Hospitalization Category Date Time Status CT chest abdomen pelvis [CT chest abdpel w/*[id number] Cat Scan 03/30/24 10:42 Completed ] Stat CT chest wo con [id number] Stat Cat Scan 03/28/24 06:27 Completed CXRP [XR chest 1V portable [id number]] Stat Exams 03/31/24 21:05 Completed XR chest 1V portable [id number] Routine Exams 03/30/24 07:00 Completed XR chest 1V portable [id number] Stat Exams 03/28/24 02:34 Completed XR chest 1V portable [id number] Stat Exams 03/31/24 22:09 Completed Pending at discharge Category Date Time Status Aspergillus AG,EIA,Serum Stat Lab 03/30/24 11:55 Received BLASTOMYCES AG [MVista Blastomyces AG Quant] Routine Lab 03/30/24 02:41 Received Coccidioides AB Immunodiffusio Routine Lab 03/30/24 02:41 Received Complete Blood Count w/Auto AM LABS Lab 04/03/24 04:00 Ordered Complete Blood Count w/Auto AM LABS Lab 04/04/24 04:00 Ordered Complete Blood Count w/Auto AM LABS Lab 04/05/24 04:00 Ordered Comprehensive Metabolic Panel AM LABS Lab 04/03/24 04:00 Ordered Comprehensive Metabolic Panel AM LABS Lab 04/04/24 04:00 Ordered Comprehensive Metabolic Panel AM LABS Lab 04/05/24 04:00 Ordered Fungitell Glucan Assay (Blood) Routine Lab 03/31/24 04:22 Received Histoplasma Galactomannan Ag Routine Lab 03/30/24 10:44 Ordered Magnesium AM LABS Lab 04/03/24 04:00 Ordered Magnesium AM LABS Lab 04/04/24 04:00 Ordered Magnesium AM LABS Lab 04/05/24 04:00 Ordered Phosphorus AM LABS Lab 04/03/24 04:00 Ordered Phosphorus AM LABS Lab 04/04/24 04:00 Ordered Phosphorus AM LABS Lab 04/05/24 04:00 Ordered Pneumocystis jiroveci Qual PCR Routine Lab 03/31/24 16:18 Ordered Vancomycin Random AM LABS Lab 04/03/24 04:00 Ordered Radiology Impressions Chest CT 03/28/24 06:27 IMPRESSION: 1. Bilateral pleural effusions with compressive atelectasis worse on the right than on the left. Findings are similar to minimally improved when compared to prior exam. 2. Bilateral infiltrates slightly worse. Findings are most suggestive of pulmonary edema. An inflammatory cause is certainly possible. 3. Cardiomegaly. Chest/Abdomen/Pelvis CT 03/30/24 10:42 IMPRESSION: 1. Moderate right and small left pleural effusion with subjacent atelectasis. 2. Severe cardiomegaly and coronary artery calcifications. IMPRESSION: 1. No acute findings within the abdomen or pelvis. 2. Laxity of the abdominal wall. Anasarca. 3. Nonobstructing renal calculi. 4. Large rectal stool burden. 5. Cirrhotic liver. COMMENTS: Consistent with the [employer]'s Incidental Findings Committee white paper (J Am Cesar Radiol 2018): Any incidental renal lesion less than 1 cm or classified as too small to characterize, or any incidental cystic renal lesion characterized as simple-appearing, is likely benign. No follow-up imaging is recommended for these lesions per consensus recommendations based on imaging criteria. Chest X-Ray 03/31/24 22:09 IMPRESSION: 1. Left-sided PICC line tip overlies the region of the mid SVC. 2. Moderate right and small left pleural effusion. No pneumothorax. 3. Central vascular prominence with mild pulmonary edema. Bibasilar atelectasis. Laboratory Results WBC 10.38 10^3/uL (3.29-11.43) 04/01/24 02:26 Corrected WBC Cancelled 03/28/24 02:48 RBC 2.73 10^6/uL (3.85-5.65) L 04/01/24 02:26 Hgb 8.70 g/dL (11.27-16.99) L 04/01/24 02:26 Hct 28.6 % (36-47) L 04/01/24 02:26 MCV 104.8 fl (85-98) H 04/01/24 02:26 MCH 31.9 pg (27-33) 04/01/24 02:26 MCHC 30.4 g/dL (30-55) 04/01/24 02:26 RDW 17.7 % (12.1-15.1) H 04/01/24 02:26 Plt Count 173 10^3/cmm (157-399) 04/01/24 02:26 MPV 9.8 fL (7.4-10.4) 04/01/24 02:26 Gran % Cancelled 03/28/24 02:48 Neut % (Auto) 93.9 % 04/01/24 02:26 Lymph % (Auto) 1.9 % 04/01/24 02:26 [place] % (Auto) 3.3 % 04/01/24 02:26 Eos % (Auto) 0.0 % 04/01/24 02:26 Baso % (Auto) 0.1 % 04/01/24 02:26 Neut # (Auto) 9.75 10^3/uL (1.8-7.7) H 04/01/24 02:26 Lymph # (Auto) 0.2 10^3/uL (0.8-4.8) L 04/01/24 02:26 [place] # (Auto) 0.3 10^3/uL (0.2-0.9) 04/01/24 02:26 Eos # (Auto) 0.0 10^3/uL (0.0-0.8) 04/01/24 02:26 Baso # (Auto) 0.0 10^3/uL (0.0-0.1) 04/01/24 02:26 Absolute Gran (auto) Cancelled 03/28/24 02:48 Nucleated RBC % (auto) 0 % 04/01/24 02:26 Nucleated RBCs # 0.0 /100WBC 04/01/24 02:26 ESR 63 mm/hr (0-15) H 03/30/24 02:41 Specimen Type Arterial 03/28/24 05:55 Sample Site Radial, left 03/28/24 05:55 ABG pH 7.38 (7.35-7.45) 03/28/24 05:55 ABG pCO2 48.0 mmHg (35-45) H 03/28/24 05:55 ABG pO2 81.0 mmHg (80.0-100.0) 03/28/24 05:55 ABG PO2/FiO2 Ratio 202 03/28/24 05:55 ABG HCO3 28.1 mmol/L (22-26) H 03/28/24 05:55 ABG Base Excess 2.5 mmol/L (-2.0-2.0) H 03/28/24 05:55 Memo Test Pos 03/28/24 05:55 Hematocrit 29.5 % (37-47) L 03/28/24 05:55 Hgb O2 Saturation 89.6 % (95-100) L 03/28/24 02:35 Carboxyhemoglobin 1.5 %THgb (0.4-20.1) 03/28/24 02:35 Methemoglobin 0.5 % (0.4-1.5) 03/28/24 02:35 Total Hemoglobin 10.4 g/dL (12-16) L 03/28/24 02:35 O2 Delivery Device Bipap 03/28/24 05:55 FiO2 40.0 % 03/28/24 05:55 PEEP 8.0 cmH20 03/28/24 02:35 Clinical Nurse Manager ID Ed 03/28/24 05:55 Sodium 136 mmol/L (136-145) 04/01/24 02:26 Potassium 4.8 mmol/L (3.5-5.1) 04/01/24 02:26 Chloride 99 mmol/L (98-107) 04/01/24 02:26 Carbon Dioxide 22 mmol/L (22-29) 04/01/24 02:26 Anion Gap 19.8 (5-19) H 04/01/24 02:26 BUN 39 mg/dL (8-23) H 04/01/24 02:26 Creatinine 2.7 mg/dL (0.5-0.9) H 04/01/24 02:26 GFR Calculation Not Reportable 04/01/24 02:26 Glucose 131 mg/dL (65-115) H 04/01/24 02:26 POC Glucose 118 mg/dL (70-110) H 04/02/24 06:26 Calculated Osmolality 293 mOsm/kg (285-295) 04/01/24 02:26 Calcium 9.2 mg/dL (8.5-10.5) 04/01/24 02:26 Phosphorus 4.3 mg/dL (2.5-4.5) 04/01/24 02:26 Magnesium 2.0 mg/dL (1.7-2.3) 04/01/24 02:26 Iron 46 ug/dL (37-145) 03/30/24 02:41 TIBC 133 mcg/dl 03/30/24 02:41 % Saturation 34.5 % (20-50) 03/30/24 02:41 Unsat Iron Binding 87 ug/dL (112-347) L 03/30/24 02:41 Ferritin 1866 ng/mL (15-150) H 03/30/24 02:41 Total Bilirubin 0.3 mg/dL (0.15-1.2) 04/01/24 02:26 AST 29 U/L (0-32) 04/01/24 02:26 ALT 23 U/L (0-33) 04/01/24 02:26 Alkaline Phosphatase 177 U/L (35-105) H 04/01/24 02:26 Lactate Dehydrogenase 296 U/L (135-214) H 03/30/24 02:41 Troponin T Baseline 83 ng/L (0-10) H 03/28/24 02:48 Troponin T 120 Minute 93.13 ng/L (0-10) H 03/28/24 04:48 Delta Troponin T 10.13 ABS# (0-10) H* 03/28/24 04:48 Troponin T Hi Sens 6Hr 89.23 ng/L (0-10) H 03/28/24 08:10 Troponin T Hi Sens 6Hr Delta 6.23 ng/L (0-12) 03/28/24 08:10 C-Reactive Protein 161.5 mg/L (0.0-4.9) H 03/30/24 02:41 NT-Pro-B Natriuret Pep 77405 pg/mL (0-450) H 04/01/24 02:26 Total Protein 6.3 g/dL (6.6-8.7) L 04/01/24 02:26 Albumin 2.9 g/dL (3.5-5.2) L 04/01/24 02:26 Globulin 3.4 g/dL (1.3-4.6) 04/01/24 02:26 Procalcitonin 56.03 ng/mL (0-0.5) H 04/01/24 02:26 Random Cortisol 53.39 ug/dL (2.47-19.5) H 03/28/24 08:10 Urine Color [place] (Yellow) A 03/28/24 19:42 Urine Appearance Turbid (CLEAR) A 03/28/24 19:42 Urine pH 5.5 (5-7) 03/28/24 19:42 Ur Specific [place] 1.016 (1.005-1.030) 03/28/24 19:42 Urine Protein 3+ (Negative) A 03/28/24 19:42 Urine Glucose (UA) Negative (Normal) 03/28/24 19:42 Urine Ketones Trace (Negative) 03/28/24 19:42 Urine Blood 2+ (Negative) A 03/28/24 19:42 Urine Nitrate Positive (Negative) A 03/28/24 19:42 Urine Bilirubin 1+ (Negative) H 03/28/24 19:42 Urine Urobilinogen 1.0 mg/dL (Negative) 03/28/24 19:42 Ur Leukocyte Esterase 3+ (Negative) A 03/28/24 19:42 Urine RBC 3-5 /hpf (0-2) 03/28/24 19:42 Urine WBC >100 /hpf (0-5) H 03/28/24 19:42 Ur Squamous Epith Cells 11-20 /hpf (0-5) 03/28/24 19:42 Amorphous Sediment Not Reportable 03/28/24 19:42 Urine Bacteria 4+ /hpf (NONE) H 03/28/24 19:42 Hyaline Casts 15.45 /lpf 03/28/24 19:42 Random Vancomycin 19.5 ug/mL (20.0-40.0) L 04/02/24 05:02 Adenovirus (PCR) Not detected (NOT DETECT) 03/28/24 19:45 C. pneumoniae DNA (PCR) Not detected (NOT DETECT) 03/28/24 19:45 Coronavirus 229E (PCR) Not detected (NOT DETECT) 03/28/24 19:45 Human Metapneumovir PCR Not detected (NOT DETECT) 03/28/24 19:45 Influenza A (H1) PCR Not detected (NOT DETECT) 03/28/24 19:45 Influ A (H1/09) PCR Not detected (NOT DETECT) 03/28/24 19:45 Influenza A (H3) PCR Not detected (NOT DETECT) 03/28/24 19:45 Influenza Type A (PCR) Not detected (NOT DETECT) 03/28/24 19:45 Influenza Type B (PCR) Not detected (NOT DETECT) 03/28/24 19:45 M. pneumoniae (PCR) Not detected (NOT DETECT) 03/28/24 19:45 Parainfluenza 1 (PCR) Not detected (NOT DETECT) 03/28/24 19:45 Parainfluenza 2 (PCR) Not detected (NOT DETECT) 03/28/24 19:45 Parainfluenza 3 (PCR) Not detected (NOT DETECT) 03/28/24 19:45 Parainfluenza 4 (PCR) Not detected (NOT DETECT) 03/28/24 19:45 RSV Type A (PCR) Not detected (NOT DETECT) 03/28/24 19:45 RSV Type B (PCR) Not detected (NOT DETECT) 03/28/24 19:45 Entero/Rhino (PCR) Not detected (NOT DETECT) 03/28/24 19:45 SARS-CoV-2 (PCR) Not detected (NOT DETECT) 03/28/24 19:45 SARS-CoV-2 Ag (Rapid) negative (Negative) 04/02/24 06:30 Vitals Last Vital Signs Temp 97.6 F 04/02/24 07:28 Pulse 104 H 04/02/24 08:00 Resp 18 04/02/24 08:00 BP 115/74 04/02/24 07:28 Pulse Ox 100 04/02/24 08:00 O2 Del Method Nasal Cannula 04/02/24 08:00 O2 Flow Rate 3.5 04/02/24 08:00 FiO2 35 04/02/24 04:24 Discharge Plan Discharge Patient Disposition: [facility] Condition: Stable Prescriptions: New prednisone 20 mg Tablet 40 mg PO DAILY 5 Days Qty: 10 0RF midodrine 5 mg Tablet 10 mg PO TID 30 Days Qty: 180 0RF ertapenem 1 gram recon soln 500 mg IV DAILY 13 Days Qty: 13 0RF Xanax 0.5 mg tablet 0.25 mg PO DAILY PRN (Reason: anxiety) 3 Days Qty: 3 0RF Continued nitroglycerin [Nitrostat] 0.4 mg tablet, sublingual 0.4 mg SUBLINGUAL Q5M PRN (Reason: Chest Pain) Qty: 30 3RF Rx Instructions: MAX 3 DOSES PER EPISODE levothyroxine [Euthyrox] 150 mcg tablet 150 mcg PO DAILY@06 calcium carbonate [Calcium 600] 600 mg calcium (1,500 mg) tablet 600 mg PO DAILY@07 hydrocodone-acetaminophen 5-325 mg tablet 1 tab PO TID PRN (Reason: Pain) cholecalciferol (vitamin D3) [Vitamin D3] 25 mcg (1,000 unit) Tablet 1,000 unit PO DAILY@07 pantoprazole 40 mg tablet,delayed release (DR/EC) 40 mg PO BID glucose 4 gram tablet,chewable 4 g PO PRN PRN (Reason: Hypoglycemia) Trelegy Ellipta 200-62.5-25 mcg blister with device 1 inh INHALATION DAILY Qty: 28 0RF insulin lispro [Humalog U-100 Insulin] 100 unit/mL Solution See Rx Instructions .ROUTE .COMPLEX MDD 40 Qty: 10 0RF Rx Instructions: per sliding scale with meals 150-200=2 units 201-250=4 units 251-300=6 units 301-350=8 units 351-400=10 units 401-450=12 units acetaminophen 325 mg Tablet 650 mg PO Q6H PRN (Reason: PAIN OR INCREASED TEMP) amiodarone 200 mg tablet 200 mg PO DAILY@07 meclizine 25 mg tablet 25 mg PO TID PRN (Reason: Nausea And Vomiting) bisacodyl [Dulcolax (bisacodyl)] 10 mg Suppository 10 mg VT DAILY PRN (Reason: if no bm x3 days ) nystatin [Nyamyc] 100,000 unit/gram powder See Rx Instructions .ROUTE .COMPLEX Rx Instructions: as directed every shift as needed (apply between thighs and affected areas twice a day as needed) pyridoxine (vitamin B6) [Vitamin B-6] 250 mg Tablet 500 mg PO DAILY@08 magnesium L-lactate 84 mg tablet extended release 84 mg PO DAILY@08 aspirin 81 mg Tablet,Delayed Release (Dr/Ec) 81 mg PO DAILY Qty: 30 0RF folic acid 1 mg tablet 1 mg PO DAILY melatonin 1 mg tablet 1 mg PO BEDTIME MediHoney (honey) 80 % gel See Rx Instructions .ROUTE .COMPLEX Rx Instructions: APPLY TOPICALLY TO LEFT SACRUM: CLEANSE WITH NS AND GAUZE, APPLY MEDI-HONEY TO WOUND BED AND COVER WITH BORDERED SILICONE DRESSING EVERY OTHER DAY AND NEEDED. menthol-zinc oxide [Calmoseptine] 0.44-20.6 % Ointment See Rx Instructions .ROUTE .COMPLEX Rx Instructions: CLEANSE AND APPLY TOPICALLY TO GREG AREA EVERY SHIFT FOR PREVENTATIVE. sertraline 100 mg Tablet 100 mg PO BEDTIME carica papaya Tablet,Chewable 4 tab PO TID Rx Instructions: WITH MEALS lidocaine 5 % Adhesive Patch,Medicated 1 patch TOPICAL BID Rx Instructions: leave on most painful area for up to 12 hrs polyethylene glycol 3350 [Miralax] 17 gram/dose Powder 17 g PO DAILY Rx Instructions: MIX IN 8 OUNCES LIQUID AND DRINK ENTIRE LIQUID ondansetron 4 mg tablet,disintegrating 4 mg PO Q6H PRN (Reason: Nausea And Vomiting) Held methotrexate sodium 2.5 mg Tablet 6 mg PO Q7D Hold Instructions: Resume on 04/16/24. Rx Instructions: ON SUNDAY Discontinued metolazone 2.5 mg Tablet See Rx Instructions .ROUTE .COMPLEX Rx Instructions: 2.5 mg orally twice weekly ON SUNDAY AND SUNDAY insulin degludec [Tresiba FlexTouch U-100] 100 unit/mL (3 mL) insulin pen 12 unit SUBCUT BEDTIME bumetanide 2 mg tablet See Rx Instructions .ROUTE .COMPLEX Rx Instructions: TAKE 2 MG BY MOUTH TWICE DAILY ON SUNDAY, SUNDAY, SUNDAY, AND SUNDAY. midodrine 10 mg tablet 10 mg PO TID PRN (Reason: low bp) Discharge Orders: Discharge Order (Routine); Ordered 04/02/24 Ordered By: Jace Renee Referrals: [facility] [Outside] Discharge Diet: As Directed and Cardiac Discharge Activity: Resume usual activity Patient Instructions: End Stage Kidney Disease (DC), Opioid Safety Activity Restrictions/Additional Instructions: - Please monitor blood pressure closely -Ertapenem 500 mg IV every 24 hours for 13 remaining days -Please continue to hold methotrexate for the next 3 weeks -Please remove PICC line after ertapenem has completed -? Diet, dysphagia level 6 diet, soft and bite-size, liquids mildly thick Discharge Attestations Time Spent in Discharge Care*: greater than 30 min Status at Discharge: Cognitive status at discharge: cognitively intact , Behavioral status at discharge: cooperative , Quality Metrics Clinical Quality Measures [ No reported AMI, CVA or VTE this stay] Coding Level of Care Code 54386 Total time (in minutes) for Discharge: 45 Diagnoses End stage renal disease on dialysis N18.6; Z99.2
[2024-04-02 11:46] LABS: Glucose Point of Care 131 mg/dL (70-110)
--- NOTE | 2024-04-02 12:26 | PC.NURSE ---
Report called to Caden Mcnair LPN, at [facility]
[2024-04-02 17:50] LABS: Fungitell 1-3-B Glucan Assay 109 pg/ml; Interpretation Positive (Negative)
[2024-04-03 18:20] LABS: Aspergillus AG,EIA,Serum NOT DETECTED; Aspergillus Galactomannan Inde <0.50
[2024-04-04 13:14] LABS: Blastomyces Antigen Interpret NEGATIVE; Blastomyces Antigen Result NONE DETECTED
[2024-04-05 18:24] LABS: Coccidioides IgG Antibody NEGATIVE; Coccidioides IgM Antibody NEGATIVE
== END 2024-04-02 13:45 | disposition skilled nursing facility (03) | DRG 193 ==
LOC: ER 06:47 → ICU 07:59 → MEDSURG 03-30 17:17
PROVIDERS: Internal Medicine; Internal Medicine Nephrology; Admitting Provider Internal Medicine; Emergency Provider Student in an Organized Health Care Education/Training Program; Visit Provider Family Medicine
DX: J18.9 Pneumonia, unspecified organism (principal); I50.33 Acute on chronic diastolic (congestive) heart failure; N18.6 End stage renal disease; J96.21 Acute and chronic respiratory failure with hypoxia; I13.2 Hypertensive heart and chronic kidney disease with heart failure and with stage 5 chronic kidney disease, or end stage renal disease; Z16.12 Extended spectrum beta lactamase (ESBL) resistance; J44.1 Chronic obstructive pulmonary disease with (acute) exacerbation; J44.0 Chronic obstructive pulmonary disease with (acute) lower respiratory infection; D84.821 Immunodeficiency due to drugs; E87.1 Hypo-osmolality and hyponatremia; G93.40 Encephalopathy, unspecified; N39.0 Urinary tract infection, site not specified; I48.20 Chronic atrial fibrillation, unspecified; E11.22 Type 2 diabetes mellitus with diabetic chronic kidney disease; I95.9 Hypotension, unspecified; B96.20 Unspecified Escherichia coli [E. coli] as the cause of diseases classified elsewhere; M06.00 Rheumatoid arthritis without rheumatoid factor, unspecified site; G47.33 Obstructive sleep apnea (adult) (pediatric); E87.5 Hyperkalemia; L89.152 Pressure ulcer of sacral region, stage 2; D63.1 Anemia in chronic kidney disease; E83.42 Hypomagnesemia; E78.5 Hyperlipidemia, unspecified; K74.60 Unspecified cirrhosis of liver; E03.9 Hypothyroidism, unspecified; M79.7 Fibromyalgia; Z96.659 Presence of unspecified artificial knee joint; G89.29 Other chronic pain; M54.50 Low back pain, unspecified; I25.10 Atherosclerotic heart disease of native coronary artery without angina pectoris; F32.9 Major depressive disorder, single episode, unspecified; F43.12 Post-traumatic stress disorder, chronic; I25.2 Old myocardial infarction; Z91.199 Patient's noncompliance with other medical treatment and regimen due to unspecified reason; Z99.2 Dependence on renal dialysis; Z99.81 Dependence on supplemental oxygen; Z91.158 Patient's noncompliance with renal dialysis for other reason; Z11.52 Encounter for screening for COVID-19; Z79.631 Long term (current) use of antimetabolite agent; Z79.4 Long term (current) use of insulin; Z79.82 Long term (current) use of aspirin; Z86.73 Personal history of transient ischemic attack (TIA), and cerebral infarction without residual deficits; Z86.14 Personal history of Methicillin resistant Staphylococcus aureus infection; Z87.891 Personal history of nicotine dependence; Z87.440 Personal history of urinary (tract) infections; Z86.16 Personal history of COVID-19; Z86.010 Personal history of colon polyps
CPT/HCPCS: 36415; 36416; 36573; 36600; 51702; 71045; 71250; 71260; 74177; 80053; 80202; 81003; 81015; 82533; 82728; 82803; 82805; 82962; 83540; 83550; 83615; 83735; 83880; 84100; 84145; 84484; 85025; 85651; 86140; 86635; 87040; 87070; 87077; 87086; 87186; 87205; 87305; 87426; 87449; 87486; 87581; 87633; 90935; 92526; 92610; 93005; 94640; 94660; 96365; 96372; 96375; 96376; 99291; J0456; J0696; J1644; J1720; J1815; J2185; J2405; J2470; J2919; J3370; J3475; J7030; J7050; J7512; J7626; P9047; Q3014; Q9967

== ENCOUNTER → 2024-04-07 11:02 | Outpatient (BNVA) | payer MEDICARE, MEDICAID, SELFPAY | PROVIDERS: Visit Provider Internal Medicine Cardiovascular Disease | DX: I48.91 Unspecified atrial fibrillation (principal); I95.1 Orthostatic hypotension; Z87.891 Personal history of nicotine dependence | CPT/HCPCS: 99213 ==

== ENCOUNTER 2024-04-21 19:19 | Observation (INO) | payer MEDICARE, MEDICAID, SELFPAY ==
[2024-04-21] VITALS (11 sets, daily range): BP systolic 112–160; BP diastolic 74–111; PULSE 81–107; RESP 14–28; TEMP 36.7; O2SAT 86–96; BMI 34.5
--- NOTE | 2024-04-21 19:25 | ECG_ITS ---
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 Measurements Intervals [place] Rate: 99 P: 0 FL: 0 QRS: 258 QRSD: 174 T: 60 QT: 357 QTc: 459 Interpretive Statements ATRIAL FIBRILLATION RIGHT AXIS DEVIATION [QRS AXIS > 100] RIGHT BUNDLE BRANCH BLOCK [120+ ms QRS DURATION, UPRIGHT V1, 40+ ms S IN I/aVL/V4/V5/V6] POSSIBLE ANTERIOR MYOCARDIAL INFARCTION , PROBABLY OLD [30 ms Q WAVE IN V3/V4, OR R < 0.2 mV IN V4] Compared to ECG 03/28/2024 07:55:30 Right-axis deviation now present Myocardial infarct finding now present T-wave abnormality no longer present Possible ischemia no longer present Electronically Signed On 04-22-2024 8:28:21 CDT by Victoriano White M.D. [id number]
--- NOTE | 2024-04-21 19:27 | XRR_ITS ---
PROCEDURE INFORMATION: Exam: XR Chest Exam date and time: 04/21/2024 7:31 PM Age: 73 years old Clinical indication: Shortness of breath; Additional info: SOB TECHNIQUE: Imaging protocol: Radiologic exam of the chest. Views: 1 view. COMPARISON: CR (CHEST, ) 03/31/2024 10:17 PM FINDINGS: Tubes, catheters and devices: Right internal jugular dual lumen dialysis catheter in place, with tip at the cavoatrial junction. Interval removal of left-sided PICC line. Lungs: Mild vascular congestion. Pleural spaces: Bilateral pleural effusions, [id number]. Associated compressive atelectasis. Heart/Mediastinum: Mildly prominent cardiomediastinal silhouette. Bones/joints: Unremarkable. XR/XR chest 1V portable [id number] IMPRESSION: 1. Bilateral pleural effusions, unchanged. 2. Radiographic findings suggestive of vascular congestion and mild fluid overload status.
[2024-04-21 19:39] LABS: Basophils # 0.1 10^3/uL (0.0-0.1); Basophils % 0.4 %; Eosinophils % 0.3 %; Hematocrit 37.9 % (36-47); Lymphocytes # 0.4 10^3/uL (0.8-4.8); Lymphocytes % 3.1 %; Mean Corpuscular HGB Conc 30.1 g/dL (30-55); Mean Corpuscular Hemoglobin 31.3 pg (27-33); Mean Corpuscular Volume 104.1 fl (85-98); Monocytes # 0.3 10^3/uL (0.2-0.9); Monocytes % 2.9 %; Neutrophils # 10.86 10^3/uL (1.8-7.7); Neutrophils % 92.5 %; Nucleated Red Blood Cells % 0 %; Platelet Count 220 10^3/cmm (157-399); Red Blood Count 3.64 10^6/uL (3.85-5.65); Red Cell Distribution Width 16.3 % (12.1-15.1); White Blood Count 11.75 10^3/uL (3.29-11.43)
[2024-04-21 19:50] LABS: Alanine Aminotransferase 30 U/L (0-33); Albumin Level 3.4 g/dL (3.5-5.2); Alkaline Phosphatase 206 U/L (35-105); Aspartate Amino Transferase 44 U/L (0-32); Blood Urea Nitrogen 35 mg/dL (8-23); Calcium 9.4 mg/dL (8.5-10.5); Carbon Dioxide 24 mmol/L (22-29); Chloride 97 mmol/L (98-107); Globulin 3.9 g/dL (1.3-4.6); Glucose 224 mg/dL (65-115); Osmolality Calculated 295 mOsm/kg (285-295); Sodium 135 mmol/L (136-145); Total Bilirubin 0.5 mg/dL (0.15-1.2); Total Protein 7.3 g/dL (6.6-8.7)
[2024-04-21] MEDS: ipratropium-albuterol 3 mL Neb INHALATION (19:51)
[2024-04-21 20:14] LABS: SARS Covid-2 Antigen negative (Negative)
--- NOTE | 2024-04-21 20:28 | P.HP_ITS ---
Providers/Chief Complaint 2 Primary Care Provider: Donavan Champagne DO Chief Complaint: SOB History of Present Illness Myesha Parker is a 73 year old female with a past medical history significant for end-stage renal disease on hemodialysis Sunday, chronic hypoxic respiratory failure on 3 L baseline, type 2 diabetes mellitus, stroke, sleep apnea, chronic atrial fibrillation, fibromyalgia, COPD and multiple other comorbidities who presents to the emergency department with shortness of breath. She reports onset several days ago. She notes that she missed dialysis last Sunday but went on and Sunday. Exertion worsens her breathing. Rest improves her breathing. She endorses associated frothy cough. Denies chest pains, fevers, chills, nausea or emesis. In the emergency department, patient was found to require 5 L of oxygen. Chest x-ray showed unchanged pleural effusions and pulmonary vascular congestion consistent with fluid overload. Nephrology consulted, recommended IV Lasix and dialysis in the a.m. Review of Systems 2 Narrative: A complete review of systems was obtained and is negative except as stated in HPI. Medications/Allergies Home Medications Medication Instructions Recorded Confirmed Last Taken Type cholecalciferol (vitamin D3) 25 1,000 unit PO DAILY@10/12/19 03/28/24 03/27/24 History mcg (1,000 unit) tablet (Vitamin D3) nitroglycerin 0.4 mg sublingual 0.4 mg sublingual Q5M PRN Chest 02/08/21 03/28/24 Unknown Rx tablet (Nitrostat) Pain #30 tabs calcium carbonate (Calcium 600) 600 mg PO DAILY@06/27/21 03/28/24 03/27/24 History levothyroxine 150 mcg tablet 150 mcg PO DAILY@06/27/21 03/28/24 03/27/24 History (Euthyrox) pantoprazole 40 mg tablet,delayed 40 mg PO BID 09/13/21 03/28/24 03/27/24 History release glucose 4 gram chewable tablet 4 g PO PRN PRN Hypoglycemia 06/17/23 03/28/24 Unknown History fluticasone fur. 200 mcg-umeclid 1 inh inhalation DAILY #28 ea 06/20/23 03/28/24 03/27/24 Rx 62.5 mcg-vilant 25 mcg inhalat.powder (Trelegy Ellipta) insulin lispro 100 unit/mL See Rx Instructions .Route 08/17/23 03/28/24 03/27/24 Rx subcutaneous solution (Humalog .COMPLEX #10 mL U-100 Insulin) hydrocodone 5 mg-acetaminophen 325 1 tab PO TID PRN Pain 09/24/23 03/28/24 03/26/24 History mg tablet acetaminophen 325 mg tablet 650 mg PO Q6H PRN PAIN OR 09/30/23 03/28/24 01/04/24 History INCREASED TEMP amiodarone 200 mg tablet 200 mg PO DAILY@09/30/23 03/28/24 03/27/24 History bisacodyl 10 mg rectal suppository 10 mg MA DAILY PRN if no bm x3 days 09/30/23 03/28/24 11/22/23 History (Dulcolax (bisacodyl)) meclizine 25 mg tablet 25 mg PO TID PRN Nausea And 09/30/23 03/28/24 03/24/24 History Vomiting nystatin 100,000 unit/gram topical See Rx Instructions .Route .COMPLEX 09/30/23 03/28/24 Unknown History powder ([facility]) magnesium L-lactate 84 mg 84 mg PO DAILY@10/12/23 03/28/24 03/27/24 History tablet,extended release methotrexate sodium 2.5 mg tablet 6 mg PO Q7D 10/12/23 03/28/24 03/22/24 History pyridoxine (vitamin B6) 250 mg 500 mg PO DAILY@10/12/23 03/28/24 03/27/24 History tablet (Vitamin B-6) aspirin 81 mg tablet,delayed 81 mg PO DAILY #30 tabs 10/19/23 03/28/24 03/27/24 Rx release folic acid 1 mg tablet 1 mg PO DAILY 01/09/24 03/28/24 03/27/24 History honey 80 % topical gel ([facility] See Rx Instructions .Route .COMPLEX 01/09/24 03/28/24 03/27/24 History (honey)) melatonin 1 mg tablet 1 mg PO BEDTIME 01/09/24 03/28/24 03/27/24 History menthol 0.44 %-zinc oxide 20.6 % See Rx Instructions .Route .COMPLEX 0603/28/24 03/27/24 History topical ointment (Calmoseptine) carica papaya 4 tab PO TID 03/17/24 03/28/24 03/27/24 History lidocaine 5 % topical patch 1 patch topical BID 03/17/24 03/28/24 03/27/24 History polyethylene glycol 3350 17 17 g PO DAILY 03/17/24 03/28/24 03/27/24 History gram/dose oral powder (Miralax) sertraline 100 mg tablet 100 mg PO BEDTIME 03/17/24 03/28/24 03/27/24 History ondansetron 4 mg disintegrating 4 mg PO Q6H PRN Nausea And Vomiting 03/28/24 03/28/24 03/27/24 History tablet midodrine 5 mg tablet 10 mg (2 x 5 mg) PO TID 30 days 04/02/24 Unknown Rx #180 tabs alprazolam 0.5 mg tablet 0.5 mg PO DAILY 04/07/24 04/07/24 Unknown History amiodarone 200 mg tablet 200 mg PO BID #60 tabs 04/07/24 04/07/24 Unknown Rx bumetanide 1 mg tablet 1 mg PO DAILY 04/07/24 04/07/24 Unknown History sertraline 50 mg tablet (Zoloft) 50 mg PO DAILY 04/07/24 04/07/24 Unknown History Allergies Allergy/AdvReac Type Severity Reaction Status Date / Time adhesive tape Allergy rash Verified 04/21/24 19:30 cinnamon Allergy sinus Verified 04/21/24 19:30 codeine Allergy unknown Verified 04/21/24 19:30 cedar Allergy sinus Uncoded 04/21/24 19:30 pine Allergy sinus Uncoded 04/21/24 19:30 pork food Allergy ADR-Nausea Uncoded 04/21/24 19:30 PFSH Acute 2 PFSH: Medical History History of cardiovascular stress test 09/2023 History of stroke Diabetes mellitus, type II Myasthenia gravis listed in [facility] records Amber albicans infection 2022 Clostridioides difficile diarrhea 12/18 Inflammatory arthritis Sleep apnea in adult noncompliant with CPAP/BiPAP in outpt setting (machine feels different) Colon polyp Gastric polyposis UGIB (upper gastrointestinal bleed) 2020 Chronic atrial fibrillation not on chronic anticoagulation due to recurrent falls and prior GI bleed NSTEMI (non-ST elevated myocardial infarction) Congestive heart failure (CHF) Orthostatic hypotension Chronic post-traumatic stress disorder (PTSD) Major depressive disorder, recurrent episode, moderate with anxious distress Duodenal ulcer due to bacteria 08/16 Coronary artery disease Chronic knee pain Chronic low back pain COVID-14 August 2020 Seronegative rheumatoid arthritis of both hands Osteoarthritis of knees, bilateral Fibromyalgia Lung nodule Unstable angina Urgency incontinence Left renal mass COPD (chronic obstructive pulmonary disease) Oxygen dependent, 3-3.5 L at baseline Hypothyroidism Liver cirrhosis Hyperlipidemia Hypertension Recurrent UTI Surgical History S/P dialysis catheter insertion 07/2023 History of colonoscopy 06/23/22 History of esophagogastroduodenoscopy (EGD) 06/23/22 History of cholecystectomy History of thyroid surgery History of cardiac cath History of hysterectomy History of knee replacement Family History Other CAD (coronary artery disease) Cancer Denies family history of Anesthesia complication Bleeding disorder Social History Smoking and tobacco/nicotine status: former use of tobacco/nicotine Quit status (tobacco/nicotine): has quit using Year quit tobacco: 2005 Second hand smoke exposure: No Alcohol intake: never Substance/Drug Use: never Adopted: No Caregiver/support person: No Lives independently: No Household members: spouse Housing: [facility] Marital status: Current occupational status: retired Current gender identity: Female Vitals/I&O/Wt Last Vital Signs Pulse 94 04/21/24 20:22 Resp 24 H 04/21/24 20:22 BP 141/111 04/21/24 20:22 Pulse Ox 93 04/21/24 20:22 O2 Del Method Nasal Cannula 04/21/24 20:22 O2 Flow Rate 5 04/21/24 19:55 Weight last 48 hrs Weight 88.451 kg Physical Exam 2 Narrative: General: Patient is awake. Appears slightly anxious. Head: Normocephalic. Atraumatic. EOM intact. Neck: Elevated JVD. Cardiovascular: RRR. No gallops. No murmurs. No peripheral edema. Lungs: Tachypneic. Breath sounds diminished at bilateral bases. Faint crackles present. On 5 Liters NC. Skin: No jaundice. No rashes. Abdomen: Normal bowel sounds, abdomen soft and nontender. Genito Urinary: Genital exam not performed since complaints not related. Rectal: Rectal exam not performed since no symptoms indicated blood loss. Extremities: No cyanosis or clubbing. Musculoskeletal: No swollen or erythematous joints. Neurological: Moves all 4 extremities. No myoclonus. Data 04/21/24 19:30 04/21/24 19:30 A&P Assessment and plan (1) Hypoxia: Acute on chronic hypoxic respiratory failure secondary to pulmonary vascular congestion Baseline oxygen requirement around 3 to 3.5 L Currently requiring 5 L and tachypneic Chest x-ray showed pleural effusions and pulmonary vascular congestion IV Lasix ordered Nephrology consulted plan for dialysis in a.m. (2) End stage renal disease on dialysis: Nephrology consulted anticipate dialysis in a.m. (3) Heart failure with preserved ejection fraction: Acute on chronic heart failure with preserved ejection fraction exacerbation IV diuresis as noted above Planning on dialysis for further volume control in a.m. Telemetry monitoring (4) Hypothyroidism: Continue home levothyroxine Qualifiers: Hypothyroidism type: acquired Qualified Code(s): E03.9 - Hypothyroidism, unspecified (5) Morbid obesity: Morbid obesity secondary to excess calories patient would benefit from weight loss (6) COPD (chronic obstructive pulmonary disease): No wheezing on exam Pulmicort Breathing treatments (7) Hypotension: Continue home midodrine (8) Diabetes mellitus, type II: Sliding-scale insulin correction Plan DVT prophylaxis: Heparin Attestations 2 Medical Necessity Statement*: Patient presents with shortness of breath, found to have acute on chronic hypoxic respiratory failure due to pulmonary vascular congestion secondary to heart failure and end-stage renal disease with expected hospitalization not to cross 2 midnights for IV diuresis and additional hemodialysis. Coding Level of Care Code Acute Code for [facility] Fwd Diagnoses Hypoxia R09.02 End stage renal disease on dialysis N18.6; Z99.2 Heart failure with preserved ejection fraction I50.30 Acquired hypothyroidism E03.9 Hypothyroidism type: acquired Morbid obesity E66.01 COPD (chronic obstructive pulmonary disease) J44.9 Hypotension I95.9 Diabetes mellitus, type II E11.9
--- NOTE | 2024-04-21 20:49 | ED_ITS ---
HPI - SOB/Dyspnea 2 General: Chief Complaint: Shortness of Breath/Dyspnea Stated Complaint: SOB Time Seen by Provider: 04/21/24 19:21 History of Present Illness: HPI Narrative: 73-year-old female from residential wit h shortness of breath. Normally on 3 L of oxygen but became hypoxic on 3 L and did require up to 5 L. 84% on her normal 3 L. She is a dialysis patient on Sunday and Saturdays. She did not miss dialysis. She supposed to get dialysis tomorrow. She denies having any chest pain. Had a breathing treatment by EMS that helped a little bit. Does have an anxiety component to her shortness of breath and states that she is out of her anxiety medications Related Data Home Medications Medication Instructions Recorded Confirmed cholecalciferol (vitamin D3) 25 1,000 unit PO DAILY@10/12/19 03/28/24 mcg (1,000 unit) tablet (Vitamin D3) calcium carbonate (Calcium 600) 600 mg PO DAILY@06/27/21 03/28/24 levothyroxine 150 mcg tablet 150 mcg PO DAILY@06/27/21 03/28/24 (Euthyrox) pantoprazole 40 mg tablet,delayed 40 mg PO BID 09/13/21 03/28/24 release glucose 4 gram chewable tablet 4 g PO PRN PRN Hypoglycemia 06/17/23 03/28/24 hydrocodone 5 mg-acetaminophen 325 1 tab PO TID PRN Pain 09/24/23 03/28/24 mg tablet acetaminophen 325 mg tablet 650 mg PO Q6H PRN PAIN OR 09/30/23 03/28/24 INCREASED TEMP amiodarone 200 mg tablet 200 mg PO DAILY@09/30/23 03/28/24 bisacodyl 10 mg rectal suppository 10 mg CA DAILY PRN if no bm x3 days 09/30/23 03/28/24 (Dulcolax (bisacodyl)) meclizine 25 mg tablet 25 mg PO TID PRN Nausea And 09/30/23 03/28/24 Vomiting nystatin 100,000 unit/gram topical See Rx Instructions .Route .COMPLEX 09/30/23 03/28/24 powder ([facility]) magnesium L-lactate 84 mg 84 mg PO DAILY@10/12/23 03/28/24 tablet,extended release methotrexate sodium 2.5 mg tablet 6 mg PO Q7D 10/12/23 03/28/24 pyridoxine (vitamin B6) 250 mg 500 mg PO DAILY@08 10/12/23 03/28/24 tablet (Vitamin B-6) folic acid 1 mg tablet 1 mg PO DAILY 01/09/24 03/28/24 honey 80 % topical gel (MediHoney See Rx Instructions .Route .COMPLEX 01/09/24 03/28/24 (honey)) melatonin 1 mg tablet 1 mg PO BEDTIME 01/09/24 03/28/24 menthol 0.44 %-zinc oxide 20.6 % See Rx Instructions .Route .COMPLEX 02/15/24 03/28/24 topical ointment (Calmoseptine) carica papaya 4 tab PO TID 03/17/24 03/28/24 lidocaine 5 % topical patch 1 patch topical BID 03/17/24 03/28/24 polyethylene glycol 3350 17 17 g PO DAILY 03/17/24 03/28/24 gram/dose oral powder (Miralax) sertraline 100 mg tablet 100 mg PO BEDTIME 03/17/24 03/28/24 ondansetron 4 mg disintegrating 4 mg PO Q6H PRN Nausea And Vomiting 03/28/24 03/28/24 tablet alprazolam 0.5 mg tablet 0.5 mg PO DAILY 04/07/24 04/07/24 bumetanide 1 mg tablet 1 mg PO DAILY 04/07/24 04/07/24 sertraline 50 mg tablet (Zoloft) 50 mg PO DAILY 04/07/24 04/07/24 Previous Rx's Medication Instructions Recorded nitroglycerin 0.4 mg sublingual 0.4 mg sublingual Q5M PRN Chest 02/08/21 tablet (Nitrostat) Pain #30 tabs fluticasone fur. 200 mcg-umeclid 1 inh inhalation DAILY #28 ea 06/20/23 62.5 mcg-vilant 25 mcg inhalat.powder (Trelegy Ellipta) insulin lispro 100 unit/mL See Rx Instructions .Route 08/17/23 subcutaneous solution (Humalog .COMPLEX #10 mL U-100 Insulin) aspirin 81 mg tablet,delayed 81 mg PO DAILY #30 tabs 10/19/23 release midodrine 5 mg tablet 10 mg (2 x 5 mg) PO TID 30 days 04/02/24 #180 tabs amiodarone 200 mg tablet 200 mg PO BID #60 tabs 04/07/24 Allergies Allergy/AdvReac Type Severity Reaction Status Date / Time adhesive tape Allergy rash Verified 04/21/24 19:30 cinnamon Allergy sinus Verified 04/21/24 19:30 codeine Allergy unknown Verified 04/21/24 19:30 cedar Allergy sinus Uncoded 04/21/24 19:30 pine Allergy sinus Uncoded 04/21/24 19:30 pork food Allergy ADR-Nausea Uncoded 04/21/24 19:30 PFSH ED 2 PFSH: Medical History History of cardiovascular stress test 09/2023 History of stroke Diabetes mellitus, type II Myasthenia gravis listed in [facility] records Amber albicans infection 2022 Clostridioides difficile diarrhea 12/18 Inflammatory arthritis Sleep apnea in adult noncompliant with CPAP/BiPAP in outpt setting (machine feels different) Colon polyp Gastric polyposis UGIB (upper gastrointestinal bleed) 2020 Chronic atrial fibrillation not on chronic anticoagulation due to recurrent falls and prior GI bleed NSTEMI (non-ST elevated myocardial infarction) Congestive heart failure (CHF) Orthostatic hypotension Chronic post-traumatic stress disorder (PTSD) Major depressive disorder, recurrent episode, moderate with anxious distress Duodenal ulcer due to bacteria 08/16 Coronary artery disease Chronic knee pain Chronic low back pain COVID-14 August 2020 Seronegative rheumatoid arthritis of both hands Osteoarthritis of knees, bilateral Fibromyalgia Lung nodule Unstable angina Urgency incontinence Left renal mass COPD (chronic obstructive pulmonary disease) Oxygen dependent, 3-3.5 L at baseline Hypothyroidism Liver cirrhosis Hyperlipidemia Hypertension Recurrent UTI Surgical History S/P dialysis catheter insertion 07/2023 History of colonoscopy 06/23/22 History of esophagogastroduodenoscopy (EGD) 06/23/22 History of cholecystectomy History of thyroid surgery History of cardiac cath History of hysterectomy History of knee replacement Family History Other CAD (coronary artery disease) Cancer Denies family history of Anesthesia complication Bleeding disorder Social History Smoking and tobacco/nicotine status: former use of tobacco/nicotine Quit status (tobacco/nicotine): has quit using Year quit tobacco: 2005 Second hand smoke exposure: No Alcohol intake: never Substance/Drug Use: never Adopted: No Caregiver/support person: No Lives independently: No Household members: spouse Housing: Custodial Marital status: Current occupational status: retired Current gender identity: Female Physical Exam 2 Const: COMMON NORMALS: no acute distress, average body habitus, patient oriented x3, no limitations, healthy appearing, alert and well nourished Neck/C-Spine: COMMON NORMALS: no JVD Resp: COMMON NORMALS: negative for normal respiratory effort (Tachypneic) and negative for clear to auscultation bilaterally (Rales throughout) A USCULTATION: not clear to auscultation bilaterally (Rales throughout) Cardio: COMMON NORMALS: no JVD, regular rate, regular rhythm, S1 normal heart sound present, S2 normal heart sound present, No gallops present (Cardio), No clicks present (Cardio), No murmurs present (Cardio), No rub (Cardio) and Peripheral pulses 2+ throughout RATE: regular rate RHYTHM: regular rhythm HEART SOUNDS: S1 normal heart sound present and S2 normal heart sound present PERIPHERAL PULSES: Peripheral pulses 2+ throughout GI: COMMON NORMALS: Normal to inspection, nondistended, normoactive bowel sounds present, Soft to palpation, non-tender, No hepatosplenomegaly present, no masses and no bruits PALPATION: Yes Soft to palpation and Yes No hepatosplenomegaly present Neuro: COMMON NORMALS: patient oriented x3 SENSORIUM/ORIENTATION: Yes alert Course 2 Vital Signs: Vital signs: Vital Signs Pulse Rate 94 04/21/24 20:47 Respiratory Rate 14 04/21/24 20:47 Blood Pressure 112/90 04/21/24 20:47 Pulse Oximetry 96 04/21/24 20:47 Oxygen Delivery Me thod Nasal Cannula 04/21/24 20:22 Oxygen Flow Rate 5 04/21/24 19:55 MDM - SOB/Dyspnea Medical Decision Making 73-year-old female from residential with shortness of breath. Normally on 3 L of oxygen but became hypoxic on 3 L and did require up to 5 L. 84% on her normal 3 L. She is a dialysis patient on Sunday and Saturdays. She did not miss dialysis. She supposed to get dialysis tomorrow. She denies having any chest pain. Had a breathing treatment by EMS that helped a little bit. Does have an anxiety component to her shortness of breath and states that she is out of her anxiety medications. Chest x-ray with vascular congestion and bilateral pleural effusions. No other significant abnormality noted on labs imaging other than very mild leukocytosis. Patient does not appear to have pneumonia. Patient without any cough here. She is afebrile. Suspect patient would do better with dialysis. Discussed with Dr. Alba , nephrology, who recommends Lasix tonight and will do dialysis first thing in the morning. Dr. Simpson kind enough to admit for observation until dialysis. Lab Data 04/21/24 19:30 04/21/24 19:30 Labs/Radiology: Radiology Impressions Chest X-Ray 04/21/24 19:27 IMPRESSION: 1. Bilateral pleural effusions, unchanged. 2. Radiographic findings suggestive of vascular congestion and mild fluid overload status. Laboratory Results WBC 11.75 10^3/uL (3.29-11.43) H 04/21/24 19:30 RBC 3.64 10^6/uL (3.85-5.65) L 04/21/24 19:30 Hgb 11.40 g/dL (11.27-16.99) 04/21/24 19:30 Hct 37.9 % (36-47) 04/21/24 19:30 MCV 104.1 fl (85-98) H 04/21/24 19:30 MCH 31.3 pg (27-33) 04/21/24 19:30 MCHC 30.1 g/dL (30-55) 04/21/24 19:30 RDW 16.3 % (12.1-15.1) H 04/21/24 19:30 Plt Count 220 10^3/cmm (157-399) 04/21/24 19:30 MPV 9.0 fL (7.4-10.4) 04/21/24 19:30 Neut % (Auto) 92.5 % 04/21/24 19:30 Lymph % (Auto) 3.1 % 04/21/24 19:30 Imperial % (Auto) 2.9 % 04/21/24 19:30 Eos % (Auto) 0.3 % 04/21/24 19:30 Baso % (Auto) 0.4 % 04/21/24 19:30 Neut # (Auto) 10.86 10^3/uL (1.8-7.7) H 04/21/24 19:30 Lymph # (Auto) 0.4 10^3/uL (0.8-4.8) L 04/21/24 19:30 Imperial # (Auto) 0.3 10^3/uL (0.2-0.9) 04/21/24 19:30 Eos # (Auto) 0.0 10^3/uL (0.0-0.8) 04/21/24 19:30 Baso # (Auto) 0.1 10^3/uL (0.0-0.1) 04/21/24 19:30 Nucleated RBC % (auto) 0 % 04/21/24 19:30 Nucleated RBCs # 0.0 /100WBC 04/21/24 19:30 Sodium 135 mmol/L (136-145) L 04/21/24 19:30 Potassium 5.0 mmol/L (3.5-5.1) 04/21/24 19:30 Chloride 97 mmol/L (98-107) L 04/21/24 19:30 Carbon Dioxide 24 mmol/L (22-29) 04/21/24 19:30 Anion Gap 19.0 (5-19) 04/21/24 19:30 BUN 35 mg/dL (8-23) H 04/21/24 19:30 Creatinine 1.9 mg/dL (0.5-0.9) H 04/21/24 19:30 GFR Calculation Not Reportable 04/21/24 19:30 Glucose 224 mg/dL (65-115) H 04/21/24 19:30 Calculated Osmolality 295 mOsm/kg (285-295) 04/21/24 19:30 Calcium 9.4 mg/dL (8.5-10.5) 04/21/24 19:30 Total Bilirubin 0.5 mg/dL (0.15-1.2) 04/21/24 19:30 AST 44 U/L (0-32) H 04/21/24 19:30 ALT 30 U/L (0-33) 04/21/24 19:30 Alkaline Phosphatase 206 U/L (35-105) H 04/21/24 19:30 Total Protein 7.3 g/dL (6.6-8.7) 04/21/24 19:30 Albumin 3.4 g/dL (3.5-5.2) L 04/21/24 19:30 Globulin 3.9 g/dL (1.3-4.6) 04/21/24 19:30 SARS-CoV-2 Ag (Rapid) negative (Negative) 04/21/24 19:51 All radiology interpretation(s) finalized by discharge Discharge Plan Discharge Patient Disposition: Placed in Observation Clinical Impression: Hypoxia, Chronic renal failure Coding Level of Care Code ED [employer] Worker Supervisor for Dougie Samson
[2024-04-21] MEDS: ALPRAZolam 0.5 mg Tablet PO (20:57)
[2024-04-21] MEDS: FUROsemide 10 mg/mL SDV 10mL 80 MG IVP (20:57)
[2024-04-21 21:31] LABS: Procalcitonin 0.33 ng/mL (0-0.5)
[2024-04-21] MEDS: midodrine 5 mg TABLET 10 MG PO (22:56)
[2024-04-21] MEDS: heparin 5,000 unit/mL INJ 1 mL 5000 UNIT SUBCUT (22:56)
[2024-04-21] MEDS: sertraline 100 mg Tablet PO (22:56)
--- NOTE | 2024-04-21 23:12 | PC.NURSE ---
Anna Marie, a nurse from the patient[facility], states that patient is bedbound and requires Cynthia lift to get up. She states that patient wears 3 1/2 liters of oxygen at baseline and is supposed to wear a CPAP, but refuses. She states the patient does not have an advanced directive or power of claim attorney.
[2024-04-22] VITALS (14 sets, daily range): BP systolic 106–151; BP diastolic 64–83; PULSE 82–112; RESP 16–20; TEMP 36.2–36.9; O2SAT 92–97
[2024-04-22 00:25] LABS: Glucose Point of Care 146 mg/dL (70-110)
--- NOTE | 2024-04-22 02:28 | PC.NURSE ---
Lidocaine patch removed from patient's back upon her arrival on the floor at approximately 22:00. Dr. Simpson notified at 02:14 that patient's home medication list had been updated.
[2024-04-22 05:29] LABS: Basophils % 0.5 %; Eosinophils # 0.1 10^3/uL (0.0-0.8); Eosinophils % 0.7 %; Hematocrit 34.7 % (36-47); Lymphocytes # 0.6 10^3/uL (0.8-4.8); Lymphocytes % 7.2 %; Mean Corpuscular HGB Conc 30.3 g/dL (30-55); Mean Corpuscular Hemoglobin 31.2 pg (27-33); Mean Platelet Volume 9.5 fL (7.4-10.4); Monocytes # 0.5 10^3/uL (0.2-0.9); Monocytes % 5.3 %; Neutrophils # 7.52 10^3/uL (1.8-7.7); Neutrophils % 85.7 %; Nucleated Red Blood Cells % 0 %; Platelet Count 212 10^3/cmm (157-399); Red Blood Count 3.37 10^6/uL (3.85-5.65); Red Cell Distribution Width 16.4 % (12.1-15.1); White Blood Count 8.76 10^3/uL (3.29-11.43)
[2024-04-22] MEDS: levothyroxine 150 mcg Tablet PO (05:46)
[2024-04-22] MEDS: amiodarone 200 mg Tablet PO (05:46)
[2024-04-22] MEDS: bumetanide 0.25 mg/mL SDV 4 mL 1 MG IVP ×2 (05:46→17:06)
[2024-04-22] MEDS: calcium carbonate 600 mg Tablet PO (05:46)
[2024-04-22 05:50] LABS: Anion Gap 15.9 (5-19); Blood Urea Nitrogen 36 mg/dL (8-23); Calcium 9.1 mg/dL (8.5-10.5); Carbon Dioxide 25 mmol/L (22-29); Chloride 99 mmol/L (98-107); Creatinine Clr Calc Pharmacy 25.9334; Glucose 108 mg/dL (65-115); Magnesium 1.6 mg/dL (1.7-2.3); Osmolality Calculated 289 mOsm/kg (285-295); Phosphorus 4.9 mg/dL (2.5-4.5); Potassium 4.9 mmol/L (3.5-5.1); Sodium 135 mmol/L (136-145)
--- NOTE | 2024-04-22 06:06 | PC.NURSE ---
Addendum entered by Natacha Mcneal RN 04/22/24 06:14: Response from Dr. Simpson: The patient will be getting dialysis this morning. Original Note: Dr. Simpson notified of the following, When Myesha Parker arrived on the floor around 2200, her lungs sounded mostly clear. Currently, her lungs sound very coarse and crackly. I just gave the 1 mg IV Bumex that was ordered. Also, I didn't know if you knew that she was incontinent or not, but I am unable to measure her urine output due to her being incontinent.
[2024-04-22 06:50] LABS: Glucose Point of Care 106 mg/dL (70-110)
[2024-04-22 07:01] LABS: Hepatitis B Surface AB < 3.5 (11.5-1000); Hepatitis B Surface Antigen Non-Reactive (Nonreactive)
[2024-04-22] MEDS: heparin, porcine 1,000 unit/mL INJ 10 mL 1000 UNIT IV (07:15)
--- NOTE | 2024-04-22 07:35 | PC.HD ---
Electronic consent signed by patient. Heparin 1000 units loading dose administered at 0715 via arterial port of HD catheter per [employer]'s orders. Due to inability to draw from arterial port, treatment initiated with lines in reverse configuration. Machine venous pressures are elevated, but within acceptable range after vigorous flushing with NSS.
[2024-04-22] MEDS: ipratropium-albuterol 3 mL Neb INHALATION ×2 (07:47→20:57)
[2024-04-22] MEDS: budesonide 0.5 mg/2 mL Neb INHALATION ×2 (07:50→20:58)
[2024-04-22] MEDS: aspirin 81 mg EC Tablet PO (09:21)
[2024-04-22] MEDS: magnesium lactate 84 mg Tablet PO (09:21)
[2024-04-22] MEDS: midodrine 5 mg TABLET 10 MG PO ×3 (09:22→20:56)
[2024-04-22] MEDS: pantoprazole DR 40 mg Tablet PO ×2 (09:23→17:06)
[2024-04-22] MEDS: heparin 5,000 unit/mL INJ 1 mL 5000 UNIT SUBCUT ×2 (09:24→20:56)
[2024-04-22] MEDS: pneumococcal (23 valent) SDV 0.5 mL IM (09:58)
[2024-04-22] MEDS: heparin, porcine 1,000 unit/mL INJ 10 mL 10000 UNIT INTRACATH (10:27)
--- NOTE | 2024-04-22 10:31 | PM.CONSULT ---
Providers/Reason For Consult Consulting Physician/Specialty*: [facility] Reason for Consult*: ESRD Attending Physician: Milton Blandon Primary Care Provider: Donavan Champagne DO History of Present Illness History of Present Illness Myesha Parker is a 73 year old female with past medical history of diabetes, hypertension history of stroke, A-fib, CHF coronary artery disease who is a resident of custodial was sent to ER for shortness of breath and respiratory distress.Patient is on TTS schedule for dialysis. In the emergency department patient was found to be hypoxic and was placed on 5 L O2. Chest x-ray showed pleural effusion pulmonary vascular congestion. Lab data reviewed. Review of Systems Narrative: Other review of systems negative Medications/Allergies Home Medications Medication Instructions Recorded Confirmed Last Taken Type cholecalciferol (vitamin D3) 25 1,000 unit PO DAILY 10/12/19 04/22/24 04/21/24 10:03 History mcg (1,000 unit) tablet (Vitamin D3) nitroglycerin 0.4 mg sublingual 0.4 mg sublingual Q5M PRN Chest 02/08/21 04/22/24 Unknown Rx tablet (Nitrostat) Pain #30 tabs calcium carbonate (Calcium 600) 600 mg PO DAILY 06/27/21 04/22/24 04/21/24 10:03 History levothyroxine 150 mcg tablet 150 mcg PO DAILY@06 06/27/21 04/22/24 04/21/24 04:04 History (Euthyrox) pantoprazole 40 mg tablet,delayed 40 mg PO BID 09/13/21 04/22/24 04/21/24 10:03 History release glucose 4 gram chewable tablet 4 g PO PRN PRN Hypoglycemia 06/17/23 04/22/24 Unknown History fluticasone fur. 200 mcg-umeclid 1 inh inhalation DAILY #28 ea 06/20/23 04/22/24 04/21/24 10:03 Rx 62.5 mcg-vilant 25 mcg inhalat.powder (Trelegy Ellipta) insulin lispro 100 unit/mL See Rx Instructions .Route 08/17/23 04/22/24 04/21/24 15:39 Rx subcutaneous solution (Humalog .COMPLEX #10 mL U-100 Insulin) acetaminophen 325 mg tablet 650 mg PO Q6H PRN PAIN OR 09/30/23 04/22/24 04/21/24 16:51 History INCREASED TEMP amiodarone 200 mg tablet 200 mg PO DAILY 09/30/23 04/22/24 04/21/24 10:03 History bisacodyl 10 mg rectal suppository 10 mg ME DAILY PRN if no bm x3 days 09/30/23 04/22/24 11/22/23 History (Dulcolax (bisacodyl)) meclizine 25 mg tablet 25 mg PO TID PRN Nausea And 09/30/23 04/22/24 04/18/24 16:06 History Vomiting nystatin 100,000 unit/gram topical See Rx Instructions .Route .COMPLEX 09/30/23 04/22/24 Unknown History powder ([facility]) magnesium L-lactate 84 mg 84 mg PO DAILY@08 10/12/23 04/22/24 04/21/24 10:03 History tablet,extended release methotrexate sodium 2.5 mg tablet 6 mg PO Q7D 10/12/23 04/22/24 04/19/24 07:36 History aspirin 81 mg tablet,delayed 81 mg PO DAILY #30 tabs 10/19/23 04/22/24 04/21/24 10:03 Rx release folic acid 1 mg tablet 1 mg PO DAILY 01/09/24 04/22/24 04/21/24 10:03 History honey 80 % topical gel ([facility] See Rx Instructions .Route .COMPLEX 01/09/24 04/22/24 04/21/24 13:47 History (honey)) melatonin 1 mg tablet 1 mg PO BEDTIME 01/09/24 04/22/24 04/21/24 01:01 History carica papaya 4 tab PO TIDWM 03/17/24 04/22/24 04/21/24 16:45 History lidocaine 5 % topical patch 1 patch topical BID 03/17/24 04/22/24 04/21/24 04:04 History sertraline 100 mg tablet 100 mg PO BEDTIME 03/17/24 04/22/24 04/21/24 01:01 History ondansetron 4 mg disintegrating 4 mg PO Q6H PRN Nausea And Vomiting 03/28/24 04/22/24 04/21/24 16:51 History tablet midodrine 5 mg tablet 10 mg (2 x 5 mg) PO TID 30 days 04/02/24 04/22/24 04/21/24 13:57 Rx #180 tabs albuterol sulfate 0.63 mg/3 mL 0.63 mg inhalation TID PRN 04/22/24 04/22/24 04/21/24 13:57 History solution for nebulization Shortness Of Breath Or Wheezing lactulose 10 gram/15 mL (15 mL) 15 ml PO DAILY 04/22/24 04/22/24 04/21/24 14:01 History oral solution polyethylene glycol 3350 17 gram 17 g PO DAILY 04/22/24 04/22/24 04/21/24 10:03 History oral powder packet (Miralax) pyridoxine (vitamin B6) 500 mg 500 mg PO DAILY 04/22/24 04/22/24 04/21/24 10:03 History tablet Allergies Allergy/AdvReac Type Severity Reaction Status Date / Time adhesive tape Allergy rash Verified 04/21/24 23:05 cinnamon Allergy sinus Verified 04/21/24 23:05 codeine Allergy unknown Verified 04/21/24 23:05 cedar Allergy sinus Uncoded 04/21/24 19:30 pine Allergy sinus Uncoded 04/21/24 19:30 pork food Allergy ADR-Nausea Uncoded 04/21/24 19:30 Current Medications Generic Name Dose Route Start Last Admin Trade Name Freq PRN Reason Stop Dose Admin Albuterol/Ipratropium 3 ml 04/21/24 21:28 04/22/24 07:47 Ipratropium-Albuterol 3 Ml Neb INHALATION 3 ml Q4H PRN Administration SHORTNESS OF BREATH Amiodarone HCl 200 mg 04/22/24 07:00 04/22/24 05:46 Amiodarone 200 Mg Tablet PO 200 mg DAILY@07 JOCE Administration Aspirin 81 mg 04/22/24 09:00 04/22/24 09:21 Aspirin 81 Mg Ec Tablet PO 81 mg DAILY JOCE Administration Budesonide 0.5 mg 04/22/24 08:00 04/22/24 07:50 Budesonide 0.5 Mg/2 Ml Neb INHALATION 0.5 mg BID.RESPIRATORY JOCE Administration Bumetanide 1 mg 04/22/24 07:00 04/22/24 05:46 Bumetanide 0.25 Mg/Ml Sdv 4 Ml IVP 1 mg BIDAC JOCE Administration Calcium Carbonate 600 mg 04/22/24 07:00 04/22/24 05:46 Calcium Carbonate 600 Mg Tablet PO 600 mg DAILY@07 JOCE Administration Heparin Sodium (Porcine) 5,000 unit 04/21/24 21:28 04/22/24 09:24 Heparin 5,000 Unit/Ml Inj 1 Ml SUBCUT 5,000 unit Q12H JOCE Administration Insulin Human Lispro 0 unit 04/21/24 21:28 04/22/24 08:43 Insulin Lispro 100 Unit/1 Ml SUBCUT Not Given WM&BEDTIME JOCE Protocol Levothyroxine Sodium 150 mcg 04/22/24 06:00 04/22/24 05:46 Levothyroxine 150 Mcg Tablet PO 150 mcg DAILY@06 JOCE Administration Magnesium Lactate 84 mg 04/22/24 08:00 04/22/24 09:21 Magnesium Lactate 84 Mg Tablet PO 84 mg DAILY@08 JOCE Administration Midodrine 10 mg 04/21/24 21:28 04/22/24 09:22 Midodrine 5 Mg Tablet PO 10 mg TID JOCE Administration Pantoprazole Sodium 40 mg 04/22/24 09:00 04/22/24 09:[address] 40 Mg Tablet PO 40 mg BID JOCE Administration Polyethylene Glycol 17 gm 04/22/24 09:00 04/22/24 09:18 Polyethylene Glycol 3350 Pkt 17 Gm PO Not Given DAILY JOCE Sertraline HCl 100 mg 04/21/24 21:28 04/21/24 22:56 Sertraline 100 Mg Tablet PO 100 mg BEDTIME JOCE Administration PFSH Acute PFSH: Medical History History of cardiovascular stress test 09/2023 History of stroke Diabetes mellitus, type II Myasthenia gravis listed in [facility] records Amber albicans infection 2022 Clostridioides difficile diarrhea 12/18 Inflammatory arthritis Sleep apnea in adult noncompliant with CPAP/BiPAP in outpt setting (machine feels different) Colon polyp Gastric polyposis UGIB (upper gastrointestinal bleed) 2020 Chronic atrial fibrillation not on chronic anticoagulation due to recurrent falls and prior GI bleed NSTEMI (non-ST elevated myocardial infarction) Congestive heart failure (CHF) Orthostatic hypotension Chronic post-traumatic stress disorder (PTSD) Major depressive disorder, recurrent episode, moderate with anxious distress Duodenal ulcer due to bacteria 08/16 Coronary artery disease Chronic knee pain Chronic low back pain COVID-14 August 2020 Seronegative rheumatoid arthritis of both hands Osteoarthritis of knees, bilateral Fibromyalgia Lung nodule Unstable angina Urgency incontinence Left renal mass COPD (chronic obstructive pulmonary disease) Oxygen dependent, 3-3.5 L at baseline Hypothyroidism Liver cirrhosis Hyperlipidemia Hypertension Recurrent UTI Surgical History S/P dialysis catheter insertion 07/2023 History of colonoscopy 06/23/22 History of esophagogastroduodenoscopy (EGD) 06/23/22 History of cholecystectomy History of thyroid surgery History of cardiac cath History of hysterectomy History of knee replacement Family History Other CAD (coronary artery disease) Cancer Denies family history of Anesthesia complication Bleeding disorder Social History Smoking and tobacco/nicotine status: former use of tobacco/nicotine Quit status (tobacco/nicotine): has quit using Year quit tobacco: 2005 Second hand smoke exposure: No Alcohol intake: never Substance/Drug Use: never Adopted: No Caregiver/support person: No Lives independently: No Household members: spouse Housing: [facility] Marital status: Current occupational status: retired Current gender identity: Female Vitals/I&O/Wt Last Vital Signs Temp 97.8 F 04/22/24 08:14 Pulse 104 H 04/22/24 08:14 Resp 16 04/22/24 08:14 BP 123/82 04/22/24 08:14 Pulse Ox 92 04/22/24 08:14 O2 Del Method Nasal Cannula 04/22/24 08:14 O2 Flow Rate 3 04/22/24 07:50 Weight last 48 hrs Weight 90.378 kg Weight 92.215 kg Weight 88.451 kg Physical Exam Narrative: Patient is awake alert no distress Currently on 3 L O2 by nasal cannula HEENT S1-S2 regular rate and rhythm per report Decreased breath sounds bilaterally at bases per report No pedal edema Data 04/22/24 05:23 04/22/24 05:23 A&P Assessment and plan (1) End stage renal disease on dialysis: Plan 1. End-stage renal disease: presented with volume overload , HD today , ultrafiltration as tolerated -Will repeat HD tomorrow, 2. Hypotension with HD, continue midodrine midodrine 3. Acute on chronic respiratory failure: multifactorial-secondary to CHF, pleural effusions, multiple admissions due to volume overload 4. Anemia: Hemoglobin 10.5, monitor 5. History of diabetes 6. History of atrial fibrillation Patient evaluated using audiovisual cart. Time spent 40 minutes. Consult Attestations Medical Necessity Statement: Per medical team Coding Level of Care Code Acute Code for Chg Fwd Diagnoses End stage renal disease on dialysis N18.6; Z99.2
[2024-04-22 10:40] LABS: Glucose Point of Care 98 mg/dL (70-110)
[2024-04-22] MEDS: magnesium sulfate premix 2 GM/50 ML PIGGYBACK IV (10:42)
[2024-04-22] MEDS: lidocaine 5% Patch 1 PATCH TOPICAL (11:42)
--- NOTE | 2024-04-22 14:59 | USCV_ITS ---
Myesha Parker Age: 73 Gender: F : 1950 Exam Date: 04/22/2024 18:04 Ordering Phys: Milton Blandon MD Technologist: GLENYS Exam Location: [facility] [place] Indication: CHF, weakness, end-stage renal disease on dialysis, O2 dependent 3L, history of atrial fibrillation BP: 106 / 57 HR: 72 Rhythm: Atrial fibrillation Technical Quality: Adequate MEASUREMENTS (Male / Female) Normal Values 2D ECHO LV Diastolic Diameter PLAX 2.9 cm 4.2 - 5.9 / 3.9 - 5.3 cm IVS Diastolic Thickness 2.0 cm 0.6 - 1.0 / 0.6 - 0.9 cm IVS Systolic Thickness 2.5 cm LVPW Diastolic Thickness 2.4 cm 0.6 - 1.0 / 0.6 - 0.9 cm LVPW Systolic Thickness 2.1 cm LVOT Diameter 2.1 cm LV Ejection Fraction 2D Teich 55.5 % LV Ejection Fraction MOD 4C 61.4 % LV Ejection Fraction MOD 2C 63.5 % LV Ejection Fraction 2C AL 62.6 % LA Diameter 4.2 cm Aorta at Sinotubular Diameter 3.1 cm IVC Diameter 2.3 cm M-MODE LA Ao Ratio MM 1.3 AV Cusp Separation MM 1.5 cm DOPPLER AV Peak Velocity 146.0 cm/s LVOT Peak Velocity 76.0 cm/s AV Area Cont Eq vti 1.7 cm squared AV Area Cont Eq pk 1.9 cm squared MV Peak Velocity 167.0 cm/s MV Area PHT 3.7 cm squared Mitral E to A Ratio 366.0 TV Peak Velocity 381.7 cm/s TR Peak Velocity 430.0 cm/s TR Peak Gradient 74.0 mmHg TV Peak E Velocity 92.0 cm/s Right Atrial Pressure 10.0 mmHg Pulmonary Artery Systolic Pressu 84.0 mmHg PV Peak Velocity 126.0 cm/s FINDINGS Left Ventricle Normal left ventricular size and systolic function, EF 61%. moderate left ventricular hypertrophy. No regional wall motion abnormalities. Grade III/IV diastolic dysfunction (restrictive filling pattern), severely elevated filling pressures. Right Ventricle The right ventricle is normal in size and function. Right Atrium The right atrium is normal in size. Left Atrium Mildly increased left atrial size. Mitral Valve Moderate mitral annular calcification. Mild mitral valve regurgitation. Aortic Valve Thickened aortic valve. Mild aortic valve regurgitation. Tricuspid Valve Mild tricuspid valve regurgitation. The estimated pulmonary artery peak systolic pressure of 85 mmHg and a mean pressure of 45 mm Hg. Pulmonic Valve Mild pulmonary valve regurgitation. Pericardium Normal pericardium without effusion. Aorta Normal ascending aorta dimension. IVC Normal IVC dimension with <50% respiratory change of the inferior vena cava. CONCLUSIONS Normal left ventricular size and systolic function, EF 61%. moderate left ventricular hypertrophy. No regional wall motion abnormalities. Grade III/IV diastolic dysfunction (restrictive filling pattern), severely elevated filling pressures. Mild biatrial enlargement Moderate mitral annular calcification. Mild mitral valve regurgitation. Mild tricuspid valve regurgitation. Severe pulmonary hypertension with an estimated pulmonary artery peak systolic pressure of 85 and a mean pressure of 45 mmHg Mild pulmonary valve regurgitation. There is no pericardial effusion. There are no intracardiac masses. Compared to the study from 08/04/2023, there is significant worsening of the pulmonary hypertension Dr Keisha Coronel MD [facility] (Electronically Signed) Final Date: 22 April 2024 23:06 S
--- NOTE | 2024-04-22 15:03 | P.PN_ITS ---
Subjective 2 Subjective: She is coughing up thick purulent appearing sputum with tinge of blood. Feels slightly better after dialysis. Vitals/I&O/Wt Last Vital Signs Temp 98.2 F 04/22/24 12:06 Pulse 96 04/22/24 12:06 Resp 18 04/22/24 12:06 BP 106/65 04/22/24 12:06 Pulse Ox 97 04/22/24 12:06 O2 Del Method Nasal Cannula 04/22/24 12:06 O2 Flow Rate 5 04/22/24 08:00 04/22/24 04/22/24 04/22/24 06:59 14:59 22:59 Intake Total 500 / 500 Output Total 3000 / 3000 Balance -2500 / -2500 Weight last 48 hrs Weight 88.5 kg Weight 90.378 kg Weight 92.215 kg Weight 88.451 kg Physical Exam 2 Const: COMMON NORMALS: patient oriented x3 and alert GENERAL APPEARANCE: c ooperative NUTRITIONAL APPEARANCE: obese ORIENTATION/CONSCIOUSNESS: Yes awake HENMT: COMMON NORMALS: oropharynx normal Neck/C-Spine: COMMON NORMALS: no JVD Resp: COMMON NORMALS: normal respiratory effort AUSCULTATION: diminished lung sounds Cardio: COMMON NORMALS: no JVD, regular rhythm, S1 normal heart sound present, S2 normal heart sound present and No murmurs present (Cardio) RHYTHM: regular rhythm HEART SOUNDS: S1 normal heart sound present and S2 normal heart sound present GI: COMMON NORMALS: Normal to inspection, nondistended, normoactive bowel sounds present, Soft to palpation and non-tender PALPATION: Yes Soft to palpation Extremity: COMMON NORMALS: no joint enlargement and no pedal edema Neuro: COMMON NORMALS: patient oriented x3 and moves all extremities S ENSORIUM/ORIENTATION: Yes alert Skin: COMMON NORMALS: no rashes or lesions noted GENERAL SKIN EXAM: no rashes or lesions noted Data 04/22/24 05:23 04/22/24 05:23 A&P Assessment and plan (1) Hypoxia: Still worsen hypoxic, requiring 5 L nasal cannula support on review of vitals, reviewed CBC, CMP, magnesium, chest x-ray, noted with bilateral pleural effusions, fluid overload, congestion. Underwent hemodialysis with mild improvement. Also in severe exacerbation of COPD with purulent appearing sputum, with dyspnea, worse hypoxia, weakness. Reviewed COVID-19 antigen, negative. Will obtain respiratory viral panel. Obtain sputum culture. Start ceftriaxone, Solu-Medrol IV, monitor for risk of hyperglycemia, hypertension, gastritis, encephalopathy with IV steroid. Continues with IV diuretic, reassess volume status, electrolytes, at risk of imbalance. Hypomagnesemia noted. Replacement requested. Recheck magnesium. Obtain limited TTE. Reviewed EKG. On my interpretation no Q wave. No acute MS. Reviewed nephrology note. Discussed with respiratory therapy, nursing, special education case manager. Acute on chronic hypoxic respiratory failure secondary to pulmonary vascular congestion Baseline oxygen requirement around 3 to 3.5 L Currently requiring 5 L and tachypneic Chest x-ray showed pleural effusions and pulmonary vascular congestion IV Lasix ordered (2) End stage renal disease on dialysis: Continue hemodialysis per nephrology. (3) Heart failure with preserved ejection fraction: Hemodialysis and IV diuresis with Bumex as above. Acute on chronic heart failure with preserved ejection fraction exacerbation IV diuresis as noted above Planning on dialysis for further volume control in a.m. Telemetry monitoring (4) Hypothyroidism: Continue home levothyroxine Qualifiers: Hypothyroidism type: acquired Qualified Code(s): E03.9 - Hypothyroidism, unspecified (5) Morbid obesity: Morbid obesity secondary to excess calories patient would benefit from weight loss (6) COPD (chronic obstructive pulmonary disease): With severe exacerbation with dyspnea, purulent appearing sputum with blood- tinged, worse hypoxia, diminished air entry. Add scheduled DuoNeb. IV Solu-Medrol, ceftriaxone. Collect sputum culture, respiratory viral panel. Continue oxygen support, wean as tolerating. Add Flutter valve. Mucinex. Pulmicort Breathing treatments (7) Hypotension: Continue home midodrine (8) Diabetes mellitus, type II: Sliding-scale insulin correction Plan DVT prophylaxis: Heparin Attestations 2 Medical Necessity Statement*: Continue admission for assessment management of new hypoxia with fluid overload, congestive heart failure, severe COPD exacerbation. and High MDM includes amount and/or complexity of data reviewed/ordered [ previous or external records, resulted lab(s)/test(s), ordered lab(s)/test(s), independent test interpretation and other healthcare professional discussion] and described risk of complication, morbidity or mortality of management as documented Diagnoses Hypoxia R09.02 End stage renal disease on dialysis N18.6; Z99.2 Heart failure with preserved ejection fraction I50.30 Acquired hypothyroidism E03.9 Hypothyroidism type: acquired Morbid obesity E66.01 COPD (chronic obstructive pulmonary disease) J44.9 Hypotension I95.9 Diabetes mellitus, type II E11.9
[2024-04-22] MEDS: methylPREDNISolone sod succ 40 mg/mL INJ IVP ×2 (15:54→22:13)
[2024-04-22] MEDS: guaiFENesin 600 mg Tablet PO (15:55)
[2024-04-22] MEDS: cefTRIAXone 1,000 mg SDV 1000 MG IVP (15:55)
[2024-04-22] MEDS: HYDROcodone-acetaminophen 5-325 mg Tablet 1 TAB PO (16:05)
[2024-04-22 16:31] LABS: Glucose Point of Care 166 mg/dL (70-110)
[2024-04-22] MEDS: insulin lispro 100 unit/1 mL SUBCUT ×2 (17:06→20:56)
[2024-04-22 18:26] LABS: Adenovirus Not Detected (NOT DETECT); Chlamydia Pneumoniae Not Detected (NOT DETECT); Coronavirus 229E,HKU1,NL63,OC4 Not Detected (NOT DETECT); Human Metapneumovirus Not Detected (NOT DETECT); Human Rhinovirus/Enterovirus Not Detected (NOT DETECT); Influenza A Not Detected (NOT DETECT); Influenza A H1 Not Detected (NOT DETECT); Influenza A H1-2009 Not Detected (NOT DETECT); Influenza A H3 Not Detected (NOT DETECT); Influenza B Not Detected (NOT DETECT); Mycoplasma Pneumoniae Not Detected (NOT DETECT); Parainfluenza Virus Type 1 Not Detected (NOT DETECT); Parainfluenza Virus Type 2 Not Detected (NOT DETECT); Parainfluenza Virus Type 3 Not Detected (NOT DETECT); Parainfluenza Virus Type 4 Not Detected (NOT DETECT); Respiratory Syncytial Virus A Not Detected (NOT DETECT); Respiratory Syncytial Virus B Not Detected (NOT DETECT); SARS-COV-2 Not Detected (NOT DETECT)
[2024-04-22 20:53] LABS: Glucose Point of Care 231 mg/dL (70-110)
[2024-04-22] MEDS: ondansetron 4 MG Tablet PO (20:56)
[2024-04-22] MEDS: ALPRAZolam 0.5 mg Tablet 0.25 MG PO (20:57)
[2024-04-22] MEDS: sertraline 100 mg Tablet PO (20:57)
[2024-04-23] VITALS (14 sets, daily range): BP systolic 107–164; BP diastolic 66–84; PULSE 74–107; RESP 16–18; TEMP 36.4–37; O2SAT 92–99
[2024-04-23] MEDS: calcium carbonate 600 mg Tablet PO (05:26)
[2024-04-23] MEDS: bumetanide 0.25 mg/mL SDV 4 mL 1 MG IVP ×2 (05:27→16:55)
[2024-04-23] MEDS: methylPREDNISolone sod succ 40 mg/mL INJ IVP ×2 (05:27→15:11)
[2024-04-23] MEDS: levothyroxine 150 mcg Tablet PO (05:27)
[2024-04-23] MEDS: amiodarone 200 mg Tablet PO (05:27)
[2024-04-23 05:37] LABS: Hematocrit 34.2 % (36-47); Lymphocytes # 0.2 10^3/uL (0.8-4.8); Lymphocytes % 2.3 %; Mean Corpuscular HGB Conc 30.4 g/dL (30-55); Mean Corpuscular Hemoglobin 31.1 pg (27-33); Mean Corpuscular Volume 102.4 fl (85-98); Mean Platelet Volume 9.3 fL (7.4-10.4); Monocytes # 0.1 10^3/uL (0.2-0.9); Monocytes % 0.6 %; Neutrophils # 8.23 10^3/uL (1.8-7.7); Neutrophils % 96.5 %; Nucleated Red Blood Cells % 0 %; Platelet Count 219 10^3/cmm (157-399); Red Blood Count 3.34 10^6/uL (3.85-5.65); Red Cell Distribution Width 16.1 % (12.1-15.1); White Blood Count 8.53 10^3/uL (3.29-11.43)
[2024-04-23 06:01] LABS: Alanine Aminotransferase 24 U/L (0-33); Albumin Level 2.9 g/dL (3.5-5.2); Alkaline Phosphatase 182 U/L (35-105); Anion Gap 16.3 (5-19); Aspartate Amino Transferase 24 U/L (0-32); Blood Urea Nitrogen 29 mg/dL (8-23); Carbon Dioxide 25 mmol/L (22-29); Chloride 99 mmol/L (98-107); Globulin 3.7 g/dL (1.3-4.6); Glucose 183 mg/dL (65-115); Magnesium 2.1 mg/dL (1.7-2.3); Osmolality Calculated 291 mOsm/kg (285-295); Phosphorus 3.7 mg/dL (2.5-4.5); Potassium 5.3 mmol/L (3.5-5.1); Sodium 135 mmol/L (136-145); Total Bilirubin 0.2 mg/dL (0.15-1.2); Total Protein 6.6 g/dL (6.6-8.7)
--- NOTE | 2024-04-23 06:33 | PC.NURSE ---
Patient's brief and linens checked at approximately 6 am with [employer] and were clean and dry. Patient stated that she did not want to be repositioned at this time.
[2024-04-23 06:37] LABS: Glucose Point of Care 201 mg/dL (70-110)
[2024-04-23] MEDS: guaiFENesin 600 mg Tablet PO ×2 (08:18→16:55)
[2024-04-23] MEDS: midodrine 5 mg TABLET 10 MG PO ×3 (08:18→21:58)
[2024-04-23] MEDS: aspirin 81 mg EC Tablet PO (08:18)
[2024-04-23] MEDS: lidocaine 5% Patch 1 PATCH TOPICAL (08:19)
[2024-04-23] MEDS: insulin lispro 100 unit/1 mL SUBCUT ×4 (08:19→21:58)
[2024-04-23] MEDS: pantoprazole DR 40 mg Tablet PO ×2 (08:19→16:54)
[2024-04-23] MEDS: magnesium lactate 84 mg Tablet PO (08:19)
--- NOTE | 2024-04-23 08:32 | P.PN_ITS ---
Subjective 2 Subjective: no new c/o Medications: Reviewed: Yes Vitals/I&O/Wt Last Vital Signs Temp 97.6 F 04/23/24 07:36 Pulse 80 04/23/24 07:36 Resp 18 04/23/24 07:36 BP 164/84 04/23/24 07:36 Pulse Ox 98 04/23/24 07:36 O2 Del Method Nasal Cannula 04/23/24 07:36 O2 Flow Rate 3 04/22/24 21:03 04/22/24 04/23/24 04/23/24 22:59 06:59 14:59 Intake Total 480 / 1270 Balance 480 / -1730 Weight last 48 hrs Weight 89.528 kg Weight 88.5 kg Weight 90.378 kg Weight 92.215 kg Weight 88.451 kg Physical Exam 2 Narrative: Patient is awake alert no distress Currently on 3 L O2 by nasal cannula HEENT S1-S2 regular rate and rhythm per report Decreased breath sounds bilaterally at bases per report No pedal edema Data 04/23/24 05:27 04/23/24 05:27 A&P Assessment and plan (1) End stage renal disease on dialysis: Plan 1. End-stage renal disease: presented with volume overload , s/p HD yesterday , ultrafiltration as tolerated -Will repeat HD today 2. Hypotension with HD, continue midodrine 3. Acute on chronic respiratory failure: multifactorial-secondary to CHF, pleural effusions, multiple admissions due to volume overload 4. Anemia: Hemoglobin 10.5, monitor 5. History of diabetes 6. History of atrial fibrillation Patient evaluated using audiovisual cart. Time spent 40 minutes. Attestations 2 Medical Necessity Statement*: per nano Coding Level of Care Code Acute Code for Chg Fwd Diagnoses End stage renal disease on dialysis N18.6; Z99.2
[2024-04-23] MEDS: ipratropium-albuterol 3 mL Neb INHALATION ×3 (08:41→20:18)
[2024-04-23] MEDS: budesonide 0.5 mg/2 mL Neb INHALATION ×2 (08:41→20:18)
--- NOTE | 2024-04-23 09:03 | P.CONIM_ITS ---
Providers/Reason For Consult 2 Consulting Physician/Specialty*: JOSE Coronel MD/cardiology Reason for Consult*: Severe pulmonary hypertension Requesting Physician: Dr. Blandon Attending Physician: Milton Blandon Primary Care Provider: Donavan Champagne DO History of Present Illness History of Present Illness Myesha Parker is a 73 year old female with a history of recurrent hospital admissions for hypoxic/hypercapnic respiratory failure, COPD/sleep apnea, morbid obesity, intermittent atrial fibrillation, previous CVA ,diastolic heart failure, type 2 diabetes, end-stage renal disease, seronegative rheumatoid arthritis, hypothyroidism, and multiple other medical problems, is admitted to the hospital with another episode of respiratory failure. She was found to have severe pulmonary hypertension by echocardiogram. Cardiology consult is requested for further cardiac evaluation and recommendations. This patient apparently had a multiple recent hospital admissions for worsening shortness of breath, diagnosed with a hypoxic/hypercapnic respiratory failure. She presented to the ER with a progressive shortness of breath. At the baseline, she requires 3 L of oxygen by nasal cannula. In the ER she was found to be using 5 L of oxygen by nasal cannula. She also had some features of heart failure. She apparently undergoes hemodialysis 3 times a week. She is complaining of a pressure-like pain in the chest that may last for several hours and then subside spontaneously. At times the pain may radiate to the right arm. She has no associated nausea or vomiting. No sweating dizziness or syncopal episodes. Intensity of the pain is moderate. The symptoms are chronic with no recent changes. She has not had any cardiac catheterization in the recent past. Her Myocardial perfusion imaging in the past were unremarkable. She smoked 1 to 2 pack a day for 25 years or so which she quit several years ago. Occasional alcohol intake. Her mother had a PCI in her 80s. No other relevant family history. She denies any fever, chills or cough. No orthopnea or PND. Most recently, she had a Myocardial perfusion imaging in September of this year. There was a small area of inconsistent reversible defect. Review of Systems 2 Narrative: CONSTITUTIONAL: No fever or chills. Has generalized weakness/fatigue EYES: No blurring of vision or other visual disturbances lately. ENT: No hoarseness of voice, auditory disturbances or sore throat. CARDIOVASCULAR: As mentioned above. RESPIRATORY: Baseline shortness of breath with intermittent exacerbations. GASTROINTESTINAL: No hematemesis or melena. GENITOURINARY: No dysuria or hematuria. INTEGUMENTARY: No skin rashes or history of skin cancer. NEURO history of CVA PSYCHIATRIC: No history of psychosis or major depression. HEMATOLOGIC: No bleeding disorders or significant anemia. ENDOCRINE: Hypothyroidism/diabetes MUSCULOSKELETAL: Seronegative rheumatoid arthritis/fibromyalgia ALLERGY/IMMUNOLOGY: As mentioned above. Medications/Allergies Home Medications Medication Instructions Recorded Confirmed Last Taken Type cholecalciferol (vitamin D3) 25 1,000 unit PO DAILY 10/12/19 04/22/24 04/21/24 10:03 History mcg (1,000 unit) tablet (Vitamin D3) nitroglycerin 0.4 mg sublingual 0.4 mg sublingual Q5M PRN Chest 02/08/21 04/22/24 Unknown Rx tablet (Nitrostat) Pain #30 tabs calcium carbonate (Calcium 600) 600 mg PO DAILY 06/27/21 04/22/24 04/21/24 10:03 History levothyroxine 150 mcg tablet 150 mcg PO DAILY@06 06/27/21 04/22/24 04/21/24 04:04 History (Euthyrox) pantoprazole 40 mg tablet,delayed 40 mg PO BID 09/13/21 04/22/24 04/21/24 10:03 History release glucose 4 gram chewable tablet 4 g PO PRN PRN Hypoglycemia 06/17/23 04/22/24 Unknown History fluticasone fur. 200 mcg-umeclid 1 inh inhalation DAILY #28 ea 06/20/23 04/22/24 04/21/24 10:03 Rx 62.5 mcg-vilant 25 mcg inhalat.powder (Trelegy Ellipta) insulin lispro 100 unit/mL See Rx Instructions .Route 08/17/23 04/22/24 04/21/24 15:39 Rx subcutaneous solution (Humalog .COMPLEX #10 mL U-100 Insulin) acetaminophen 325 mg tablet 650 mg PO Q6H PRN PAIN OR 09/30/23 04/22/24 04/21/24 16:51 History INCREASED TEMP amiodarone 200 mg tablet 200 mg PO DAILY 09/30/23 04/22/24 04/21/24 10:03 History bisacodyl 10 mg rectal suppository 10 mg IL DAILY PRN if no bm x3 days 09/30/23 04/22/24 11/22/23 History (Dulcolax (bisacodyl)) meclizine 25 mg tablet 25 mg PO TID PRN Nausea And 09/30/23 04/22/24 04/18/24 16:06 History Vomiting nystatin 100,000 unit/gram topical See Rx Instructions .Route .COMPLEX 09/30/23 04/22/24 Unknown History powder ([facility]) magnesium L-lactate 84 mg 84 mg PO DAILY@08 10/12/23 04/22/24 04/21/24 10:03 History tablet,extended release methotrexate sodium 2.5 mg tablet 6 mg PO Q7D 10/12/23 04/22/24 04/19/24 07:36 History aspirin 81 mg tablet,delayed 81 mg PO DAILY #30 tabs 10/19/23 04/22/24 04/21/24 10:03 Rx release folic acid 1 mg tablet 1 mg PO DAILY 01/09/24 04/22/24 04/21/24 10:03 History honey 80 % [facility] See Rx Instructions .Route .COMPLEX 01/09/24 04/22/24 04/21/24 13:47 History (honey)) melatonin 1 mg tablet 1 mg PO BEDTIME 01/09/24 04/22/24 04/21/24 01:01 History carica papaya 4 tab PO TIDWM 03/17/24 04/22/24 04/21/24 16:45 History lidocaine 5 % topical patch 1 patch topical BID 03/17/24 04/22/24 04/21/24 04:04 History sertraline 100 mg tablet 100 mg PO BEDTIME 03/17/24 04/22/24 04/21/24 01:01 History ondansetron 4 mg disintegrating 4 mg PO Q6H PRN Nausea And Vomiting 03/28/24 04/22/24 04/21/24 16:51 History tablet midodrine 5 mg tablet 10 mg (2 x 5 mg) PO TID 30 days 04/02/24 04/22/24 04/21/24 13:57 Rx #180 tabs albuterol sulfate 0.63 mg/3 mL 0.63 mg inhalation TID PRN 04/22/24 04/22/24 04/21/24 13:57 History solution for nebulization Shortness Of Breath Or Wheezing lactulose 10 gram/15 mL (15 mL) 15 ml PO DAILY 04/22/24 04/22/24 04/21/24 14:01 History oral solution polyethylene glycol 3350 17 gram 17 g PO DAILY 04/22/24 04/22/24 04/21/24 10:03 History oral powder packet (Miralax) pyridoxine (vitamin B6) 500 mg 500 mg PO DAILY 04/22/24 04/22/24 04/21/24 10:03 History tablet Allergies Allergy/AdvReac Type Severity Reaction Status Date / Time adhesive tape Allergy rash Verified 04/21/24 23:05 cinnamon Allergy sinus Verified 04/21/24 23:05 codeine Allergy unknown Verified 04/21/24 23:05 cedar Allergy sinus Uncoded 04/21/24 19:30 pine Allergy sinus Uncoded 04/21/24 19:30 pork food Allergy ADR-Nausea Uncoded 04/21/24 19:30 Current Medications Generic Name Dose Route Start Last Admin Trade Name Freq PRN Reason Stop Dose Admin Hydrocodone Bitart/Acetaminophen 1 tab 04/21/24 21:28 04/22/24 16:05 Hydrocodone-Acetaminophen 5-325 Mg Tablet PO 1 tab TID PRN Administration Pain Albuterol/Ipratropium 3 ml 04/21/24 21:28 04/22/24 07:47 Ipratropium-Albuterol 3 Ml Neb INHALATION 3 ml Q4H PRN Administration SHORTNESS OF BREATH Albuterol/Ipratropium 3 ml 04/22/24 20:00 04/23/24 08:41 Ipratropium-Albuterol 3 Ml Neb INHALATION 3 ml Q6H.RESP JOCE Administration Alprazolam 0.25 mg 04/22/24 19:38 04/22/24 20:57 Alprazolam 0.5 Mg Tablet PO 0.25 mg TID PRN Administration ANXIETY Amiodarone HCl 200 mg 04/22/24 07:00 04/23/24 05:27 Amiodarone 200 Mg Tablet PO 200 mg DAILY@07 JOCE Administration Aspirin 81 mg 04/22/24 09:00 04/23/24 08:18 Aspirin 81 Mg Ec Tablet PO 81 mg DAILY JOCE Administration Budesonide 0.5 mg 04/22/24 08:00 04/23/24 08:41 Budesonide 0.5 Mg/2 Ml Neb INHALATION 0.5 mg BID.RESPIRATORY JOCE Administration Bumetanide 1 mg 04/22/24 07:00 04/23/24 05:27 Bumetanide 0.25 Mg/Ml Sdv 4 Ml IVP 1 mg BIDAC JOCE Administration Calcium Carbonate 600 mg 04/22/24 07:00 04/23/24 05:26 Calcium Carbonate 600 Mg Tablet PO 600 mg DAILY@07 JOCE Administration Ceftriaxone Sodium 1,000 mg 04/22/24 15:15 04/22/24 15:55 Ceftriaxone 1,000 Mg Sdv IVP 1,000 mg Q24H JOCE Administration Protocol Guaifenesin 600 mg 04/22/24 15:00 04/23/24 08:18 Guaifenesin 600 Mg Tablet PO 600 mg BID JOCE Administration Heparin Sodium (Porcine) 5,000 unit 04/21/24 21:28 04/22/24 20:56 Heparin 5,000 Unit/Ml Inj 1 Ml SUBCUT 5,000 unit Q12H JOCE Administration Insulin Human Lispro 0 unit 04/21/24 21:28 04/23/24 08:19 Insulin Lispro 100 Unit/1 Ml SUBCUT 4 unit WM&BEDTIME JOCE Administration Protocol Levothyroxine Sodium 150 mcg 04/22/24 06:00 04/23/24 05:27 Levothyroxine 150 Mcg Tablet PO 150 mcg DAILY@06 JOCE Administration Lidocaine 1 patch 04/22/24 09:00 04/23/24 08:19 Lidocaine 5% Patch TOPICAL 1 patch BID JOCE Administration Magnesium Lactate 84 mg 04/22/24 08:00 04/23/24 08:19 Magnesium Lactate 84 Mg Tablet PO 84 mg DAILY@08 JOCE Administration Methylprednisolone Sodium Succinate 40 mg 04/22/24 15:15 04/23/24 05:27 Methylprednisolone Sod Succ 40 Mg/Ml Inj IVP 40 mg Q8H JOCE Administration Midodrine 10 mg 04/21/24 21:28 04/23/24 08:18 Midodrine 5 Mg Tablet PO 10 mg TID JOCE Administration Ondansetron HCl 4 mg 04/21/24 21:28 04/22/24 20:56 Ondansetron 4 Mg Tablet PO 4 mg Q8H PRN Administration NAUSEA Pantoprazole Sodium 40 mg 04/22/24 09:00 04/23/24 08:[address] 40 Mg Tablet PO 40 mg BID JOCE Administration Polyethylene Glycol 17 gm 04/22/24 09:00 04/23/24 08:20 Polyethylene Glycol 3350 Pkt 17 Gm PO Not Given DAILY JOCE Sertraline HCl 100 mg 04/21/24 21:28 04/22/24 20:57 Sertraline 100 Mg Tablet PO 100 mg BEDTIME JOCE Administration PFSH Acute 2 PFSH: Medical History History of cardiovascular stress test 09/2023 History of stroke Diabetes mellitus, type II Myasthenia gravis listed in [facility] records Amber albicans infection 2022 Clostridioides difficile diarrhea 12/18 Inflammatory arthritis Sleep apnea in adult noncompliant with CPAP/BiPAP in outpt setting (machine feels different) Colon polyp Gastric polyposis UGIB (upper gastrointestinal bleed) 2020 Chronic atrial fibrillation not on chronic anticoagulation due to recurrent falls and prior GI bleed NSTEMI (non-ST elevated myocardial infarction) Congestive heart failure (CHF) Orthostatic hypotension Chronic post-traumatic stress disorder (PTSD) Major depressive disorder, recurrent episode, moderate with anxious distress Duodenal ulcer due to bacteria 08/16 Coronary artery disease Chronic knee pain Chronic low back pain COVID-14 August 2020 Seronegative rheumatoid arthritis of both hands Osteoarthritis of knees, bilateral Fibromyalgia Lung nodule Unstable angina Urgency incontinence Left renal mass COPD (chronic obstructive pulmonary disease) Oxygen dependent, 3-3.5 L at baseline Hypothyroidism Liver cirrhosis Hyperlipidemia Hypertension Recurrent UTI Surgical History S/P dialysis catheter insertion 07/2023 History of colonoscopy 06/23/22 History of esophagogastroduodenoscopy (EGD) 06/23/22 History of cholecystectomy History of thyroid surgery History of cardiac cath History of hysterectomy History of knee replacement Family History Other CAD (coronary artery disease) Cancer Denies family history of Anesthesia complication Bleeding disorder Social History Smoking and tobacco/nicotine status: former use of tobacco/nicotine Quit status (tobacco/nicotine): has quit using Year quit tobacco: 2005 Second hand smoke exposure: No Alcohol intake: never Substance/Drug Use: never Adopted: No Caregiver/support person: No Lives independently: No Household members: spouse Housing: [facility] Marital status: Current occupational status: retired Current gender identity: Female Vitals/I&O/Wt Last Vital Signs Temp 97.6 F 04/23/24 07:36 Pulse 87 04/23/24 08:41 Resp 17 04/23/24 08:41 BP 164/84 04/23/24 07:36 Pulse Ox 98 04/23/24 08:41 O2 Del Method Nasal Cannula 04/23/24 08:41 O2 Flow Rate 3 04/23/24 08:41 04/22/24 04/23/24 04/23/24 22:59 06:59 14:59 Intake Total 480 / 1270 680 / 680 Balance 480 / -1730 680 / 680 Weight last 48 hrs Weight 197 lb 6 oz Weight 195 lb 1.745 oz Weight 199 lb 4 oz Weight 203 lb 4.8 oz Weight 195 lb Physical Exam 2 Narrative: GENERAL: The patient is alert and oriented times three. Not in any acute distress. Obese HEENT: No significant pallor, icterus or lymphadenopathy.Oral cavity: There are no mucous membrane lesions. NECK: Trachea appears to be central. No masses noted. No JVD or thyromegaly appreciated. RESPIRATORY: Chest is symmetrical. No intercostals muscle retraction or any accessory muscle activation. There is no chest wall tenderness. Breath sounds are heard bilaterally. No rales or rhonchi heard. No evidence of any consolidation. Occasional scattered expiratory wheezing BREASTS: Deferred. HEART: The heart sounds are normal. No S3 or S4. Systolic murmur grade 3/6 in the left sternal border. No diastolic murmurs. No pericardial rub ABDOMEN: No vessel pulsations or distention. No tenderness. No organomegaly appreciated. Bowel sounds are normally heard. : Deferred. RECTAL: Deferred. LYMPHATIC: No lymphadenopathy noted in the neck. EXTREMITIES: Trace to 1+ edema both lower extremities. MUSCULOSKELETAL: No acute joint deformities or swelling SKIN: There are no significant rashes or ecchymosis NEUROPSYCHIATRIC: The patient is alert and oriented x3. Appears to be in a good mood. No tremors or rigidity noted. Data 04/24/24 02:42 04/24/24 02:42 Other Labs: Laboratory Last Values WBC 8.53 10^3/uL (3.29-11.43) 04/23/24 05:27 RBC 3.34 10^6/uL (3.85-5.65) L 04/23/24 05:27 Hgb 10.40 g/dL (11.27-16.99) L 04/23/24 05:27 Hct 34.2 % (36-47) L 04/23/24 05:27 MCV 102.4 fl (85-98) H 04/23/24 05:27 MCH 31.1 pg (27-33) 04/23/24 05:27 MCHC 30.4 g/dL (30-55) 04/23/24 05:27 RDW 16.1 % (12.1-15.1) H 04/23/24 05:27 Plt Count 219 10^3/cmm (157-399) 04/23/24 05:27 MPV 9.3 fL (7.4-10.4) 04/23/24 05:27 Neut % (Auto) 96.5 % 04/23/24 05:27 Lymph % (Auto) 2.3 % 04/23/24 05:27 Millard % (Auto) 0.6 % 04/23/24 05:27 Eos % (Auto) 0.0 % 04/23/24 05:27 Baso % (Auto) 0.0 % 04/23/24 05:27 Neut # (Auto) 8.23 10^3/uL (1.8-7.7) H 04/23/24 05:27 Lymph # (Auto) 0.2 10^3/uL (0.8-4.8) L 04/23/24 05:27 Millard # (Auto) 0.1 10^3/uL (0.2-0.9) L 04/23/24 05:27 Eos # (Auto) 0.0 10^3/uL (0.0-0.8) 04/23/24 05:27 Baso # (Auto) 0.0 10^3/uL (0.0-0.1) 04/23/24 05:27 Nucleated RBC % (auto) 0 % 04/23/24 05:27 Nucleated RBCs # 0.0 /100WBC 04/23/24 05:27 Sodium 135 mmol/L (136-145) L 04/23/24 05:27 Potassium 5.3 mmol/L (3.5-5.1) H 04/23/24 05:27 Chloride 99 mmol/L (98-107) 04/23/24 05:27 Carbon Dioxide 25 mmol/L (22-29) 04/23/24 05:27 Anion Gap 16.3 (5-19) 04/23/24 05:27 BUN 29 mg/dL (8-23) H 04/23/24 05:27 Creatinine 1.8 mg/dL (0.5-0.9) H 04/23/24 05:27 GFR Calculation Not Reportable 04/23/24 05:27 Glucose 183 mg/dL (65-115) H 04/23/24 05:27 POC Glucose 201 mg/dL (70-110) H 04/23/24 06:20 Calculated Osmolality 291 mOsm/kg (285-295) 04/23/24 05:27 Calcium 9.0 mg/dL (8.5-10.5) 04/23/24 05:27 Phosphorus 3.7 mg/dL (2.5-4.5) 04/23/24 05:27 Magnesium 2.1 mg/dL (1.7-2.3) 04/23/24 05:27 Total Bilirubin 0.2 mg/dL (0.15-1.2) 04/23/24 05:27 AST 24 U/L (0-32) 04/23/24 05:27 ALT 24 U/L (0-33) 04/23/24 05:27 Alkaline Phosphatase 182 U/L (35-105) H 04/23/24 05:27 C-Reactive Protein 67.0 mg/L (0.0-4.9) H 04/21/24 19:44 Total Protein 6.6 g/dL (6.6-8.7) 04/23/24 05:27 Albumin 2.9 g/dL (3.5-5.2) L 04/23/24 05:27 Globulin 3.7 g/dL (1.3-4.6) 04/23/24 05:27 Procalcitonin 0.33 ng/mL (0-0.5) 04/21/24 19:44 Adenovirus (PCR) Not detected (NOT DETECT) 04/22/24 16:27 C. pneumoniae DNA (PCR) Not detected (NOT DETECT) 04/22/24 16:27 Coronavirus 229E (PCR) Not detected (NOT DETECT) 04/22/24 16:27 Hep Bs Antigen Non-reactive (Nonreactive) 04/21/24 19:30 Hep Bs Antibody < 3.5 (11.5-1000) L 04/21/24 19:30 Human Metapneumovir PCR Not detected (NOT DETECT) 04/22/24 16:27 Influenza A (H1) PCR Not detected (NOT DETECT) 04/22/24 16:27 Influ A (H1/09) PCR Not detected (NOT DETECT) 04/22/24 16:27 Influenza A (H3) PCR Not detected (NOT DETECT) 04/22/24 16:27 Influenza Type A (PCR) Not detected (NOT DETECT) 04/22/24 16:27 Influenza Type B (PCR) Not detected (NOT DETECT) 04/22/24 16:27 M. pneumoniae (PCR) Not detected (NOT DETECT) 04/22/24 16:27 Parainfluenza 1 (PCR) Not detected (NOT DETECT) 04/22/24 16:27 Parainfluenza 2 (PCR) Not detected (NOT DETECT) 04/22/24 16:27 Parainfluenza 3 (PCR) Not detected (NOT DETECT) 04/22/24 16:27 Parainfluenza 4 (PCR) Not detected (NOT DETECT) 04/22/24 16:27 RSV Type A (PCR) Not detected (NOT DETECT) 04/22/24 16:27 RSV Type B (PCR) Not detected (NOT DETECT) 04/22/24 16:27 Entero/Rhino (PCR) Not detected (NOT DETECT) 04/22/24 16:27 SARS-CoV-2 (PCR) Not detected (NOT DETECT) 04/22/24 16:27 SARS-CoV-2 Ag (Rapid) negative (Negative) 04/21/24 19:51 EKG 1: My Interpretation: The EKG showed atrial fibrillation with mostly controlled ventricular response rate. Right bundle branch block. Features of RVH. Poor R wave progression. Nonspecific T wave changes. Other data: Myocardial perfusion imaging in September 2023 1. Myocardial perfusion imaging revealing small area of slightly decreased tracer uptake in the basal inferior wall region, with some reversibility in the supine imaging. However with the prone imaging, no reversible defects are noted. Because of the inconsistency, the reliability of this finding is questionable 2. Normal LV ejection fraction of 77%. 3. LV wall motion analysis revealing no gross wall motion abnormalities. 4. Normal LV volume A&P Assessment and plan (1) Heart failure with preserved ejection fraction: Patient apparently has very low urine output. Her severe pulmonary hypertension, diastolic dysfunction, COPD exacerbation, etc. are contributing factors for the decompensated heart failure. May try a higher dose of the diuretic Qualifiers: Heart failure chronicity: acute on chronic Qualified Code(s): I50.33 - Acute on chronic diastolic (congestive) heart failure (2) Severe pulmonary hypertension: Predominantly the pulmonary hypertension is group 3 with an element of group 2. A pulmonary consult might be appropriate for further management of her condition. (3) Chronic atrial fibrillation: Her ventricular response rate is under control. Patient is on long-term oral anticoagulation. This may be continued. (4) Diabetes mellitus, type II: Aggressive management would be appropriate Qualifiers: Diabetes mellitus chcf insulin use: with chcf use Diabetes mellitus complication status: without complication Qualified Code(s): E11.9 - Type 2 diabetes mellitus without complications; Z79.4 - longterm (current) use of insulin (5) Hypothyroidism: Clinically euthyroid. May continue on the current treatment measures. Qualifiers: Hypothyroidism type: acquired Qualified Code(s): E03.9 - Hypothyroidism, unspecified (6) COPD exacerbation: The etiology, could be multifactorial. Upper respiratory infection, diastolic heart failure, sleep apnea etc. are contributing factors. (7) Morbid obesity: Patient has difficulty in exercising (8) Major depressive disorder, recurrent episode, moderate with anxious distress: May continue on the current management (9) Hypertension: Currently blood pressure is slightly elevated. May need to optimize the antihypertensive medication. Qualifiers: Hypertension type: primary hypertension Qualified Code(s): I10 - Essential (primary) hypertension Plan I may increase the Bumex to 2 mg every 8 hours and see the response Optimize the bronchodilator treatment. Hemodialysis as needed Continue under management. 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
[2024-04-23 10:49] LABS: Glucose Point of Care 268 mg/dL (70-110)
--- NOTE | 2024-04-23 12:28 | PC.HD ---
Heparin 1000 units loading dose administered via arterial port of HD catheter at 1215 per hydraulic press tender's orders.
[2024-04-23] MEDS: heparin 5,000 unit/mL INJ 1 mL 5000 UNIT SUBCUT (13:26)
[2024-04-23] MEDS: cefTRIAXone 1,000 mg SDV 1000 MG IVP (15:11)
--- NOTE | 2024-04-23 16:46 | PM.PN ---
Subjective Subjective: Reports she is feeling slightly better in terms of her breathing, tolerated hemodialysis without issue. Is supposed to have additional dialysis today. Vitals/I&O/Wt Last Vital Signs Temp 97.6 F 04/23/24 15:36 Pulse 88 04/23/24 16:02 Resp 17 04/23/24 16:02 BP 107/66 04/23/24 15:36 Pulse Ox 96 04/23/24 16:02 O2 Del Method Nasal Cannula 04/23/24 16:02 O2 Flow Rate 3 04/23/24 16:02 04/23/24 04/23/24 04/23/24 06:59 14:59 22:59 Intake Total 920 / 920 500 / 1420 Output Total 2500 / 2500 Balance 920 / 920 -2000 / -1080 Weight last 48 hrs Weight 86.8 kg Weight 89.528 kg Weight 88.5 kg Weight 90.378 kg Weight 92.215 kg Weight 88.451 kg Physical Exam Const: GENERAL APPEARANCE: cooperative NUTRITIONAL APPEARANCE: obese OTHER: Wakes up to voice. HENMT: COMMON NORMALS: oropharynx normal Neck/C-Spine: COMMON NORMALS: no JVD Resp: COMMON NORMALS: normal respiratory effort AUSCULTATION: diminished lung sounds bilateral in the lower lung hatch Cardio: COMMON NORMALS: no JVD, regular rhythm, S1 normal heart sound present, S2 normal heart sound present and No murmurs present (Cardio) RHYTHM: regular rhythm HEART SOUNDS: S1 normal heart sound present and S2 normal heart sound present GI: COMMON NORMALS: Normal to inspection, nondistended, normoactive bowel sounds present, Soft to palpation and non-tender PALPATION: Yes Soft to palpation Extremity: COMMON NORMALS: no joint enlargement and no pedal edema Neuro: COMMON NORMALS: moves all extremities Skin: COMMON NORMALS: no rashes or lesions noted GENERAL SKIN EXAM: no rashes or lesions noted Data 04/23/24 05:27 04/23/24 05:27 Micro: Microbiology 04/22/24 16:25 Gram Stain - Final Sputum - Expectorated Sputum Sputum Culture - Preliminary A&P Assessment and plan (1) Hypoxia: Some gradual improvement in oxygenation with dialysis. Continues to require 3 L nasal cannula oxygen at current time. Discussed worsening pulmonary hypertension with cardiology. Appreciate additional assessment. Further consideration of additional diagnostic measures. Reviewed sputum Gram stain, moderate PMN, few yeast, few gram-negative rods, few gram-positive cocci in pairs. Follow-up sputum culture. Also in severe exacerbation of COPD . Continue ceftriaxone, Solu-Medrol IV, monitor for risk of hyperglycemia, hypertension, gastritis, encephalopathy with IV steroid. Continues with IV diuretic, reassess volume status, electrolytes, at risk of imbalance. Hypomagnesemia repleted. Recheck. Obtained limited TTE. EF 61%, moderate LV H, grade 2 diastolic dysfunction, mild biatrial enlargement, mild MVR, mild TVR, severe pulmonary hypertension. Mild PVR. Reviewed nephrology note. Discussed with respiratory therapy, nursing, social work case manager. Acute on chronic hypoxic respiratory failure secondary to pulmonary vascular congestion Baseline oxygen requirement around 3 to 3.5 L Currently requiring 5 L and tachypneic Chest x-ray showed pleural effusions and pulmonary vascular congestion IV Lasix ordered (2) End stage renal disease on dialysis: Continue hemodialysis per nephrology. (3) Heart failure with preserved ejection fraction: Improving with dialysis. Hemodialysis and IV diuresis with Bumex as above. Acute on chronic heart failure with preserved ejection fraction exacerbation IV diuresis as noted above Planning on dialysis for further volume control in a.m. Telemetry monitoring (4) Hypothyroidism: Continue home levothyroxine Qualifiers: Hypothyroidism type: acquired Qualified Code(s): E03.9 - Hypothyroidism, unspecified (5) Morbid obesity: Morbid obesity secondary to excess calories patient would benefit from weight loss (6) COPD (chronic obstructive pulmonary disease): With severe exacerbation with dyspnea, purulent appearing sputum with blood-tinged, worse hypoxia, diminished air entry. Scheduled DuoNeb. IV Solu-Medrol, ceftriaxone. Collect sputum culture, respiratory viral panel. Continue oxygen support, wean as tolerating. Add Flutter valve. Mucinex. Pulmicort Breathing treatments (7) Hypotension: Continue home midodrine (8) Diabetes mellitus, type II: Sliding-scale insulin correction Plan DVT prophylaxis: Heparin Attestations Medical Necessity Statement*: Continue admission for assessment management of hypoxia with fluid overload, congestive heart failure, severe COPD exacerbation. and High MDM includes amount and/or complexity of data reviewed/ordered [ resulted lab(s)/test(s), ordered lab(s)/test(s) and other healthcare professional discussion] and described risk of complication, morbidity or mortality of management as documented Diagnoses Hypoxia R09.02 End stage renal disease on dialysis N18.6; Z99.2 Heart failure with preserved ejection fraction I50.30 Acquired hypothyroidism E03.9 Hypothyroidism type: acquired Morbid obesity E66.01 COPD (chronic obstructive pulmonary disease) J44.9 Hypotension I95.9 Diabetes mellitus, type II E11.9
[2024-04-23 16:49] LABS: Glucose Point of Care 185 mg/dL (70-110)
[2024-04-23] MEDS: heparin, porcine 1,000 unit/mL INJ 10 mL 10000 UNIT INTRACATH (17:28)
[2024-04-23] MEDS: heparin, porcine 1,000 unit/mL INJ 10 mL 1000 UNIT IV (17:28)
[2024-04-23] MEDS: ondansetron 4 MG Tablet PO (19:32)
[2024-04-23] MEDS: acetaminophen 325 mg Tablet 650 MG PO (19:32)
[2024-04-23 20:30] LABS: Glucose Point of Care 230 mg/dL (70-110)
[2024-04-23] MEDS: sertraline 100 mg Tablet PO (21:58)
[2024-04-23] MEDS: ALPRAZolam 0.5 mg Tablet 0.25 MG PO (21:58)
[2024-04-24] VITALS (15 sets, daily range): BP systolic 127–157; BP diastolic 65–98; PULSE 79–104; RESP 17–18; TEMP 36.4–36.9; O2SAT 95–99
[2024-04-24] MEDS: methylPREDNISolone sod succ 40 mg/mL INJ IVP ×2 (00:07→06:20)
[2024-04-24] MEDS: heparin 5,000 unit/mL INJ 1 mL 5000 UNIT SUBCUT (00:07)
[2024-04-24] MEDS: ipratropium-albuterol 3 mL Neb INHALATION ×4 (02:38→21:07)
[2024-04-24 03:22] LABS: Hematocrit 34.1 % (36-47); Lymphocytes # 0.2 10^3/uL (0.8-4.8); Lymphocytes % 1.5 %; Mean Corpuscular HGB Conc 30.5 g/dL (30-55); Mean Corpuscular Hemoglobin 31.2 pg (27-33); Mean Corpuscular Volume 102.4 fl (85-98); Mean Platelet Volume 9.4 fL (7.4-10.4); Monocytes # 0.4 10^3/uL (0.2-0.9); Neutrophils # 11.13 10^3/uL (1.8-7.7); Nucleated Red Blood Cells % 0 %; Platelet Count 254 10^3/cmm (157-399); Red Blood Count 3.33 10^6/uL (3.85-5.65); Red Cell Distribution Width 16.2 % (12.1-15.1); White Blood Count 11.72 10^3/uL (3.29-11.43)
[2024-04-24 03:43] LABS: Alanine Aminotransferase 23 U/L (0-33); Albumin Level 3.1 g/dL (3.5-5.2); Alkaline Phosphatase 172 U/L (35-105); Anion Gap 16.8 (5-19); Aspartate Amino Transferase 22 U/L (0-32); Blood Urea Nitrogen 25 mg/dL (8-23); Calcium 9.1 mg/dL (8.5-10.5); Carbon Dioxide 27 mmol/L (22-29); Chloride 99 mmol/L (98-107); Creatinine Clr Calc Pharmacy 29.8639; Globulin 3.6 g/dL (1.3-4.6); Glucose 166 mg/dL (65-115); Osmolality Calculated 294 mOsm/kg (285-295); Potassium 4.8 mmol/L (3.5-5.1); Sodium 138 mmol/L (136-145); Total Bilirubin 0.2 mg/dL (0.15-1.2); Total Protein 6.7 g/dL (6.6-8.7)
[2024-04-24] MEDS: amiodarone 200 mg Tablet PO (06:18)
[2024-04-24] MEDS: levothyroxine 150 mcg Tablet PO (06:18)
[2024-04-24] MEDS: calcium carbonate 600 mg Tablet PO (06:19)
[2024-04-24] MEDS: acetaminophen 325 mg Tablet 650 MG PO ×2 (06:19→14:11)
[2024-04-24] MEDS: bumetanide 0.25 mg/mL SDV 4 mL 1 MG IVP ×2 (06:20→17:09)
[2024-04-24 06:32] LABS: Glucose Point of Care 202 mg/dL (70-110)
[2024-04-24] MEDS: magnesium lactate 84 mg Tablet PO (08:17)
[2024-04-24] MEDS: insulin lispro 100 unit/1 mL SUBCUT ×4 (08:17→21:21)
[2024-04-24] MEDS: guaiFENesin 600 mg Tablet PO ×2 (08:17→17:08)
[2024-04-24] MEDS: pantoprazole DR 40 mg Tablet PO ×2 (08:17→17:09)
[2024-04-24] MEDS: midodrine 5 mg TABLET 10 MG PO ×3 (08:17→21:20)
[2024-04-24] MEDS: lidocaine 5% Patch 1 PATCH TOPICAL (08:17)
[2024-04-24] MEDS: aspirin 81 mg EC Tablet PO (08:17)
[2024-04-24] MEDS: budesonide 0.5 mg/2 mL Neb INHALATION ×2 (09:04→21:07)
[2024-04-24 11:05] LABS: Glucose Point of Care 219 mg/dL (70-110)
--- NOTE | 2024-04-24 11:59 | US_ITS ---
WS: [id number] Chest ultrasound, limited. Evaluate LEFT pleural fluid for possible thoracentesis. Ultrasound was performed of the LEFT chest. There is a small amount of fluid but there is also atelec tatic lung moving in and out of the fluid during inspiration and expiration. There is less fluid on t liseth's examination as on 07/03/2023. Insufficient for safe thoracentesis. There is also a small amount of pleural fluid on the RIGHT but insufficient for thoracentesis. US/US chest [id number] IMPRESSION: Insufficient pleural fluid for thoracentesis.
--- NOTE | 2024-04-24 12:09 | PM.PN ---
Subjective Subjective: She denies any additional new developments. No chest pain currently. Vitals/I&O/Wt Last Vital Signs Temp 97.9 F 04/24/24 07:42 Pulse 97 04/24/24 09:13 Resp 18 04/24/24 09:05 BP 144/76 04/24/24 07:42 Pulse Ox 95 04/24/24 09:05 O2 Del Method Nasal Cannula 04/24/24 09:05 O2 Flow Rate 3 04/24/24 09:05 04/23/24 04/24/24 04/24/24 22:59 06:59 14:59 Intake Total 500 / 1420 240 / 240 Output Total 2500 / 2500 Balance -2000 / -1080 240 / 240 Weight last 48 hrs Weight 88.989 kg Weight 86.8 kg Weight 89.528 kg Physical Exam Const: COMMON NORMALS: patient oriented x3 and alert GENERAL APPEARANCE: cooperative NUTRITIONAL APPEARANCE: obese ORIENTATION/CONSCIOUSNESS: Yes awake OTHER: Wakes up to voice. HENMT: COMMON NORMALS: oropharynx normal Neck/C-Spine: COMMON NORMALS: no JVD Resp: COMMON NORMALS: normal respiratory effort AUSCULTATION: diminished lung sounds bilateral in the lower lung hatch Cardio: COMMON NORMALS: no JVD, regular rhythm, S1 normal heart sound present, S2 normal heart sound present and No murmurs present (Cardio) RHYTHM: regular rhythm HEART SOUNDS: S1 normal heart sound present and S2 normal heart sound present GI: COMMON NORMALS: Normal to inspection, nondistended, normoactive bowel sounds present, Soft to palpation and non-tender PALPATION: Yes Soft to palpation Extremity: COMMON NORMALS: no joint enlargement and no pedal edema Neuro: COMMON NORMALS: patient oriented x3 and moves all extremities SENSORIUM/ORIENTATION: Yes alert Skin: COMMON NORMALS: no rashes or lesions noted GENERAL SKIN EXAM: no rashes or lesions noted Data 04/24/24 02:42 04/24/24 02:42 Micro: Microbiology 04/22/24 16:25 Gram Stain - Final Sputum - Expectorated Sputum Sputum Culture - Final A&P Assessment and plan (1) Hypoxia: Reviewed vitals, intake and output, CBC, INR, CMP. No urine output charted, but per discussion with nursing staff does put out some urine with finding of wet bedding. Per discussion with nephrology it is difficult to remove too much fluid with dialysis in her. Thoracentesis may be considered for additional fluid removal with large pleural effusions. Discussed with her. Discussed with radiologist. Held heparin. Requested US thoracentesis. Continue oxygen support. Wean down as tolerating. Discussed worsening pulmonary hypertension with cardiology. Appreciate additional assessment. Further consideration of additional diagnostic measures. Pending additional assessment with stress testing. Continue treatment also of COPD exacerbation. Reviewed sputum culture, final culture with moderate normal pennie on day 2. Continue ceftriaxone, Solu-Medrol IV, monitor for risk of hyperglycemia, hypertension, gastritis, encephalopathy with IV steroid. Will decrease Solu-Medrol dose to 20 mg. Continues with IV diuretic, reassess volume status, electrolytes, at risk of imbalance. Magnesium reviewed, today normal. Recheck. Obtained limited TTE. EF 61%, moderate LV H, grade 2 diastolic dysfunction, mild biatrial enlargement, mild MVR, mild TVR, severe pulmonary hypertension. Mild PVR. Reviewed nephrology note. Discussed with special education case manager. Acute on chronic hypoxic respiratory failure secondary to pulmonary vascular congestion Baseline oxygen requirement around 3 to 3.5 L Currently requiring 5 L and tachypneic Chest x-ray showed pleural effusions and pulmonary vascular congestion IV Lasix ordered (2) End stage renal disease on dialysis: Continue hemodialysis per nephrology. (3) Heart failure with preserved ejection fraction: Improving with dialysis. He is reportedly producing urine but difficult to track. Continue IV diuretics for now. Hemodialysis and IV diuresis with Bumex as above. Acute on chronic heart failure with preserved ejection fraction exacerbation Planning on dialysis for further volume control in a.m. Telemetry monitoring (4) Hypothyroidism: Continue home levothyroxine Qualifiers: Hypothyroidism type: acquired Qualified Code(s): E03.9 - Hypothyroidism, unspecified (5) Morbid obesity: Morbid obesity secondary to excess calories patient would benefit from weight loss (6) COPD (chronic obstructive pulmonary disease): Decrease Medrol down to 20 mg. With severe exacerbation with dyspnea, purulent appearing sputum with blood-tinged, worse hypoxia, diminished air entry. Scheduled DuoNeb. IV Solu-Medrol, ceftriaxone. Collect sputum culture, respiratory viral panel. Continue oxygen support, wean as tolerating. Add Flutter valve. Mucinex. Pulmicort Breathing treatments (7) Hypotension: Continue home midodrine (8) Diabetes mellitus, type II: Sliding-scale insulin correction Plan DVT prophylaxis: Heparin Attestations Medical Necessity Statement*: Continue admission for assessment management of hypoxia with fluid overload, congestive heart failure, severe COPD exacerbation. and High MDM includes amount and/or complexity of data reviewed/ordered [ resulted lab(s)/test(s), ordered lab(s)/test(s) and other healthcare professional discussion] and described risk of complication, morbidity or mortality of management as documented Diagnoses Hypoxia R09.02 End stage renal disease on dialysis N18.6; Z99.2 Heart failure with preserved ejection fraction I50.30 Acquired hypothyroidism E03.9 Hypothyroidism type: acquired Morbid obesity E66.01 COPD (chronic obstructive pulmonary disease) J44.9 Hypotension I95.9 Diabetes mellitus, type II E11.9
[2024-04-24] MEDS: ondansetron 4 MG Tablet PO ×2 (14:11→23:08)
[2024-04-24] MEDS: cefTRIAXone 1,000 mg SDV 1000 MG IVP (15:39)
[2024-04-24] MEDS: methylPREDNISolone sod succ 40 mg/mL INJ 20 MG IVP ×2 (15:40→23:04)
--- NOTE | 2024-04-24 16:49 | P.PN_ITS ---
Subjective 2 Subjective: no new c/o Medications: Reviewed: Yes Vitals/I&O/Wt Last Vital Signs Temp 97.5 F L 04/24/24 15:56 Pulse 94 04/24/24 15:56 Resp 18 04/24/24 15:56 BP 156/98 04/24/24 15:56 Pulse Ox 98 04/24/24 15:56 O2 Del Method Nasal Cannula 04/24/24 14:46 O2 Flow Rate 3 04/24/24 14:46 04/24/24 04/24/24 04/24/24 06:59 14:59 22:59 Intake Total 720 / 720 Balance 720 / 720 Weight last 48 hrs Weight 88.989 kg Weight 86.8 kg Weight 89.528 kg Physical Exam 2 Narrative: Patient is awake alert no distress Currently on 3 L O2 by nasal cannula HEENT S1-S2 regular rate and rhythm per report Decreased breath sounds bilaterally at bases per report No pedal edema Data 04/24/24 02:42 04/24/24 02:42 Micro: Microbiology 04/22/24 16:25 Gram Stain - Final Sputum - Expectorated Sputum Sputum Culture - Final A&P Assessment and plan (1) End stage renal disease on dialysis: Plan 1. End-stage renal disease: presented with volume overload , s/p HD yesterday , ultrafiltration as tolerated next HD am 2. Hypotension with HD, continue midodrine 3. Acute on chronic respiratory failure: multifactorial-secondary to CHF, pleural effusions, multiple admissions due to volume overload 4. Anemia: Hemoglobin 10.5, monitor 5. History of diabetes 6. History of atrial fibrillation Patient evaluated using audiovisual cart. Time spent 40 minutes. Attestations 2 Medical Necessity Statement*: per nano Coding Level of Care Code Acute Code for Chg Fwd Diagnoses End stage renal disease on dialysis N18.6; Z99.2
[2024-04-24 16:58] LABS: Glucose Point of Care 179 mg/dL (70-110)
[2024-04-24] MEDS: sertraline 100 mg Tablet PO (21:20)
[2024-04-24] MEDS: ALPRAZolam 0.5 mg Tablet 0.25 MG PO (21:22)
--- NOTE | 2024-04-24 22:18 | P.PN_ITS ---
Subjective 2 Subjective: Patient shortness of breath is slowly improving. Has some constant chest discomfort with no significant recent change. No evidence of microinjury. Remains afebrile. Medications: Medication Review Details: Current Medications Acetaminophen (Acetaminophen 325 Mg Tablet) 650 mg PO Q6H PRN PRN Reason: Mild/Mod Pain Or Temp >/= 101 Last Admin: 04/24/24 14:11 Dose: 650 mg Hydrocodone Bitart/Acetaminophen (Hydrocodone-Acetaminophen 5-325 Mg Tablet) 1 tab PO TID PRN PRN Reason: Pain Last Admin: 04/22/24 16:05 Dose: 1 tab Albuterol/Ipratropium (Ipratropium-Albuterol 3 Ml Neb) 3 ml INHALATION Q4H PRN PRN Reason: SHORTNESS OF BREATH Last Admin: 04/22/24 07:47 Dose: 3 ml Albuterol/Ipratropium (Ipratropium-Albuterol 3 Ml Neb) 3 ml INHALATION Q6H.RESP JOCE Last Admin: 04/24/24 21:07 Dose: 3 ml Alprazolam (Alprazolam 0.5 Mg Tablet) 0.25 mg PO TID PRN PRN Reason: ANXIETY Last Admin: 04/24/24 21:22 Dose: 0.25 mg Amiodarone HCl (Amiodarone 200 Mg Tablet) 200 mg PO DAILY@ [facility] Last Admin: 04/24/24 06:18 Dose: 200 mg Aspirin (Aspirin 81 Mg Ec Tablet) 81 mg PO DAILY [facility] Last Admin: 04/24/24 08:17 Dose: 81 mg Budesonide (Budesonide 0.5 Mg/2 Ml Neb) 0.5 mg INHALATION BID.RESPIRATORY JOCE Last Admin: 04/24/24 21:07 Dose: 0.5 mg Bumetanide (Bumetanide 0.25 Mg/Ml Sdv 4 Ml) 1 mg IVP BIDAC JOCE Last Admin: 04/24/24 17:09 Dose: 1 mg Calcium Carbonate (Calcium Carbonate 600 Mg Tablet) 600 mg PO DAILY@07 [facility] Last Admin: 04/24/24 06:19 Dose: 600 mg Ceftriaxone Sodium (Ceftriaxone 1,000 Mg Sdv) 1,000 mg IVP Q24H [facility]; Protocol Last Admin: 04/24/24 15:39 Dose: 1,000 mg Glucagon (Glucagon 1 Mg/Ml Kit 1 Ml) 1 mg IM ONCE PRN; Protocol PRN Reason: Adult Acute Hypoglycemia Nursing Prot. Guaifenesin (Guaifenesin 600 Mg Tablet) 600 mg PO BID [facility] Last Admin: 04/24/24 17:08 Dose: 600 mg Heparin Sodium (Porcine) (Heparin 5,000 Unit/Ml Inj 1 Ml) 5,000 unit SUBCUT Q12H [facility] Last Admin: 04/24/24 00:07 Dose: 5,000 unit Dextrose (D5w) 500 mls @ 0 mls/hr IV ONCE PRN; Protocol PRN Reason: Adult Acute Hypoglycemia Prot Dextrose (D10w) 125 mls @ 750 mls/hr IV PRN PRN; Protocol PRN Reason: Adult Acute Hypoglycemia Nursing Protocol Dextrose (D10w) 250 mls @ 1,000 mls/hr IV PRN PRN; Protocol PRN Reason: Adult Acute Hypoglycemia Nursing Protocol Sodium Chloride (Sodium Chloride 0.9%) 1,000 mls @ 0 mls/hr IV .Q0M PRN PRN Reason: hypotension or symptomatic Albumin Human (Albumin) 12.5 gm in 50 mls @ 60 mls/hr IV PRN PRN PRN Reason: Hypotension and/or symptomatic Sodium Chloride (Sodium Chloride 0.9%) 1,000 mls @ 0 mls/hr IV .Q0M PRN PRN Reason: hypotension or symptomatic Albumin Human (Albumin) 12.5 gm in 50 mls @ 60 mls/hr IV PRN PRN PRN Reason: Hypotension and/or symptomatic Insulin Human Lispro (Insulin Lispro 100 Unit/1 Ml) 0 unit SUBCUT WM&BEDTIME [facility]; Protocol Last Admin: 04/24/24 21:21 Dose: 14 unit Lactulose (Lactulose Oral Liq 20 Gm/30 Ml Udc) 10 gm PO DAILY PRN; Protocol PRN Reason: Constipation (see protocol) Levothyroxine Sodium (Levothyroxine 150 Mcg Tablet) 150 mcg PO DAILY@06 [facility] Last Admin: 04/24/24 06:18 Dose: 150 mcg Lidocaine (Lidocaine 5% Patch) 1 patch TOPICAL Q12H [facility] Last Admin: 04/24/24 21:29 Dose: Not Given Magnesium Lactate (Magnesium Lactate 84 Mg Tablet) 84 mg PO DAILY@08 [facility] Last Admin: 04/24/24 08:17 Dose: 84 mg Meclizine HCl (Meclizine 25 Mg Tablet) 25 mg PO TID PRN PRN Reason: Nausea And Vomiting Methylprednisolone Sodium Succinate (Methylprednisolone Sod Succ 40 Mg/Ml Inj) 20 mg IVP Q8H [facility] Last Admin: 04/24/24 15:40 Dose: 20 mg Midodrine (Midodrine 5 Mg Tablet) 10 mg PO TID [facility] Last Admin: 04/24/24 21:20 Dose: 10 mg Nitroglycerin (Nitroglycerin 0.4 Mg Sublingual Tablet) 0.4 mg SUBLINGUAL Q5M PRN PRN Reason: Chest Pain Nystatin (Nystatin Powder 15 Gm Btl) 1 applic TOPICAL BID PRN PRN Reason: RASH Ondansetron HCl (Ondansetron 2 Mg/Ml Sdv 2 Ml) 4 mg IVP Q8H PRN PRN Reason: vomiting, or N/V if npo Ondansetron HCl (Ondansetron 4 Mg Tablet) 4 mg PO Q8H PRN PRN Reason: NAUSEA Last Admin: 04/24/24 14:11 Dose: 4 mg Pantoprazole Sodium (Pantoprazole Dr 40 Mg Tablet) 40 mg PO BID [facility] Last Admin: 04/24/24 17:09 Dose: 40 mg Polyethylene Glycol (Polyethylene Glycol 3350 Pkt 17 Gm) 17 gm PO DAILY [facility] Last Admin: 04/24/24 08:18 Dose: Not Given Sertraline HCl (Sertraline 100 Mg Tablet) 100 mg PO BEDTIME [facility] Last Admin: 04/24/24 21:20 Dose: 100 mg Vitals/I&O/Wt Last Vital Signs Temp 97.7 F 04/24/24 19:52 Pulse 88 04/24/24 21:19 Resp 17 04/24/24 21:07 BP 147/84 04/24/24 19:52 Pulse Ox 95 04/24/24 21:07 O2 Del Method Nasal Cannula 04/24/24 21:07 O2 Flow Rate 3 04/24/24 21:07 04/24/24 04/24/24 04/24/24 06:59 14:59 22:59 Intake Total 720 / 720 480 / 1200 Balance 720 / 720 480 / 1200 Weight last 48 hrs Weight 196 lb 3 oz Weight 191 lb 5.78 oz Weight 197 lb 6 oz Physical Exam 2 Narrative: GENERAL: The patient is alert and oriented times three. Not in any acute distress. Obese HEENT: No significant pallor, icterus or lymphadenopathy.Oral cavity: There are no mucous membrane lesions. NECK: Trachea appears to be central. No masses noted. No JVD or thyromegaly appreciated. RESPIRATORY: Chest is symmetrical. No intercostals muscle retraction or any accessory muscle activation. There is no chest wall tenderness. Breath sounds are heard bilaterally. No rales or rhonchi heard. No evidence of any consolidation. Occasional scattered expiratory wheezing BREASTS: Deferred. HEART: The heart sounds are normal. No S3 or S4. Systolic murmur grade 3/6 in the left sternal border. No diastolic murmurs. No pericardial rub ABDOMEN: No vessel pulsations or distention. No tenderness. No organomegaly appreciated. Bowel sounds are normally heard. : Deferred. RECTAL: Deferred. LYMPHATIC: No lymphadenopathy noted in the neck. EXTREMITIES: Trace to 1+ edema both lower extremities. MUSCULOSKELETAL: No acute joint deformities or swelling SKIN: There are no significant rashes or ecchymosis NEUROPSYCHIATRIC: The patient is alert and oriented x3. Appears to be in a good mood. No tremors or rigidity noted. Data 04/24/24 02:42 04/24/24 02:42 Other Labs: Laboratory Last Values WBC 11.72 10^3/uL (3.29-11.43) H 04/24/24 02:42 RBC 3.33 10^6/uL (3.85-5.65) L 04/24/24 02:42 Hgb 10.40 g/dL (11.27-16.99) L 04/24/24 02:42 Hct 34.1 % (36-47) L 04/24/24 02:42 MCV 102.4 fl (85-98) H 04/24/24 02:42 MCH 31.2 pg (27-33) 04/24/24 02:42 MCHC 30.5 g/dL (30-55) 04/24/24 02:42 RDW 16.2 % (12.1-15.1) H 04/24/24 02:42 Plt Count 254 10^3/cmm (157-399) 04/24/24 02:42 MPV 9.4 fL (7.4-10.4) 04/24/24 02:42 Neut % (Auto) 95.0 % 04/24/24 02:42 Lymph % (Auto) 1.5 % 04/24/24 02:42 [place] % (Auto) 3.0 % 04/24/24 02:42 Eos % (Auto) 0.0 % 04/24/24 02:42 Baso % (Auto) 0.0 % 04/24/24 02:42 Neut # (Auto) 11.13 10^3/uL (1.8-7.7) H 04/24/24 02:42 Lymph # (Auto) 0.2 10^3/uL (0.8-4.8) L 04/24/24 02:42 [place] # (Auto) 0.4 10^3/uL (0.2-0.9) 04/24/24 02:42 Eos # (Auto) 0.0 10^3/uL (0.0-0.8) 04/24/24 02:42 Baso # (Auto) 0.0 10^3/uL (0.0-0.1) 04/24/24 02:42 Nucleated RBC % (auto) 0 % 04/24/24 02:42 Nucleated RBCs # 0.0 /100WBC 04/24/24 02:42 PT 13.50 SECONDS (12.1-14.9) 04/24/24 13:48 INR 1.00 (0.8-1.2) 04/24/24 13:48 Sodium 138 mmol/L (136-145) 04/24/24 02:42 Potassium 4.8 mmol/L (3.5-5.1) 04/24/24 02:42 Chloride 99 mmol/L (98-107) 04/24/24 02:42 Carbon Dioxide 27 mmol/L (22-29) 04/24/24 02:42 Anion Gap 16.8 (5-19) 04/24/24 02:42 BUN 25 mg/dL (8-23) H 04/24/24 02:42 Creatinine 1.7 mg/dL (0.5-0.9) H 04/24/24 02:42 GFR Calculation Not Reportable 04/24/24 02:42 Glucose 166 mg/dL (65-115) H 04/24/24 02:42 POC Glucose 179 mg/dL (70-110) H 04/24/24 16:47 Calculated Osmolality 294 mOsm/kg (285-295) 04/24/24 02:42 Calcium 9.1 mg/dL (8.5-10.5) 04/24/24 02:42 Phosphorus 3.7 mg/dL (2.5-4.5) 04/23/24 05:27 Magnesium 2.0 mg/dL (1.7-2.3) 04/24/24 02:42 Total Bilirubin 0.2 mg/dL (0.15-1.2) 04/24/24 02:42 AST 22 U/L (0-32) 04/24/24 02:42 ALT 23 U/L (0-33) 04/24/24 02:42 Alkaline Phosphatase 172 U/L (35-105) H 04/24/24 02:42 C-Reactive Protein 67.0 mg/L (0.0-4.9) H 04/21/24 19:44 Total Protein 6.7 g/dL (6.6-8.7) 04/24/24 02:42 Albumin 3.1 g/dL (3.5-5.2) L 04/24/24 02:42 Globulin 3.6 g/dL (1.3-4.6) 04/24/24 02:42 Procalcitonin 0.33 ng/mL (0-0.5) 04/21/24 19:44 Adenovirus (PCR) Not detected (NOT DETECT) 04/22/24 16:27 C. pneumoniae DNA (PCR) Not detected (NOT DETECT) 04/22/24 16:27 Coronavirus 229E (PCR) Not detected (NOT DETECT) 04/22/24 16:27 Hep Bs Antigen Non-reactive (Nonreactive) 04/21/24 19:30 Hep Bs Antibody < 3.5 (11.5-1000) L 04/21/24 19:30 Human Metapneumovir PCR Not detected (NOT DETECT) 04/22/24 16:27 Influenza A (H1) PCR Not detected (NOT DETECT) 04/22/24 16:27 Influ A (H1/09) PCR Not detected (NOT DETECT) 04/22/24 16:27 Influenza A (H3) PCR Not detected (NOT DETECT) 04/22/24 16:27 Influenza Type A (PCR) Not detected (NOT DETECT) 04/22/24 16:27 Influenza Type B (PCR) Not detected (NOT DETECT) 04/22/24 16:27 M. pneumoniae (PCR) Not detected (NOT DETECT) 04/22/24 16:27 Parainfluenza 1 (PCR) Not detected (NOT DETECT) 04/22/24 16:27 Parainfluenza 2 (PCR) Not detected (NOT DETECT) 04/22/24 16:27 Parainfluenza 3 (PCR) Not detected (NOT DETECT) 04/22/24 16:27 Parainfluenza 4 (PCR) Not detected (NOT DETECT) 04/22/24 16:27 RSV Type A (PCR) Not detected (NOT DETECT) 04/22/24 16:27 RSV Type B (PCR) Not detected (NOT DETECT) 04/22/24 16:27 Entero/Rhino (PCR) Not detected (NOT DETECT) 04/22/24 16:27 SARS-CoV-2 (PCR) Not detected (NOT DETECT) 04/22/24 16:27 SARS-CoV-2 Ag (Rapid) negative (Negative) 04/21/24 19:51 Micro: Microbiology 04/22/24 16:25 Gram Stain - Final Sputum - Expectorated Sputum Sputum Culture - Final A&P Assessment and plan (1) Heart failure with preserved ejection fraction: I may try a higher dose of diuretic and see the response. Bumex 2 mg every 12 hours Potassium 20 mg p.o. daily Qualifiers: Heart failure chronicity: acute on chronic Qualified Code(s): I50.33 - Acute on chronic diastolic (congestive) heart failure (2) Severe pulmonary hypertension: Predominantly the pulmonary hypertension is group 3 with an element of group 2. A pulmonary consult might be appropriate for further management of her condition. (3) Chronic atrial fibrillation: Her ventricular response rate is under control. Patient is on long-term oral anticoagulation. This may be continued. (4) Diabetes mellitus, type II: Aggressive management would be appropriate Qualifiers: Diabetes mellitus supervisor intermediates insulin use: with supervisor intermediates use Diabetes mellitus complication status: without complication Qualified Code(s): E11.9 - Type 2 diabetes mellitus without complications; Z79.4 - senior care (current) use of insulin (5) Hypothyroidism: Clinically euthyroid. May continue on the current treatment measures. Qualifiers: Hypothyroidism type: acquired Qualified Code(s): E03.9 - Hypothyroidism, unspecified (6) COPD exacerbation: The etiology, could be multifactorial. Upper respiratory infection, diastolic heart failure, sleep apnea etc. are contributing factors. (7) Morbid obesity: Patient has difficulty in exercising (8) Major depressive disorder, recurrent episode, moderate with anxious distress: May continue on the current management (9) Hypertension: Currently blood pressure is slightly elevated. May need to optimize the antihypertensive medication. Qualifiers: Hypertension type: primary hypertension Qualified Code(s): I10 - Essential (primary) hypertension Plan I may increase the Bumex to 2 mg every 12 hours and see the response Optimize the bronchodilator treatment. Hemodialysis as needed Continue the other current management. Thank you for the opportunity to evaluate this patient and make these recommendations Attestations 2 Medical Necessity Statement*: Patient requires continued hospital stay for close monitoring and further management Coding Level of Care Code 32796 Diagnoses Acute on chronic heart failure with preserved ejection fraction I50.33 Heart failure chronicity: acute on chronic Severe pulmonary hypertension I27.20 Chronic atrial fibrillation I48.20 Type 2 diabetes mellitus without complication, with long-term current use of insulin E11.9; Z79.4 Diabetes mellitus supervisor intermediates insulin use: with supervisor intermediates use Diabetes mellitus complication status: without complication Acquired hypothyroidism E03.9 Hypothyroidism type: acquired COPD exacerbation J44.1 Morbid obesity E66.01 Major depressive disorder, recurrent episode, moderate with anxious distress F33.1 Primary hypertension I10 Hypertension type: primary hypertension
--- NOTE | 2024-04-24 22:36 | PC.NURSE ---
Ordered placed by Dr. Coronel for 2 mg Bumex q12 hour with first dose being now. Dr. Coronel contacted by telephone to notify him that the patient has been received Bumex 1 mg every 12 hours, with her last dose being approximately [address] Coronel asked about patient's urinary output and he was notified that the patient is incontinent and does not have a romero. Ordered to place 2 mg Bumex order on hold and continue with the 1 mg order. BNP ordered for the AM.
[2024-04-24] MEDS: HYDROcodone-acetaminophen 5-325 mg Tablet 1 TAB PO (23:08)
[2024-04-25] VITALS (20 sets, daily range): BP systolic 121–151; BP diastolic 67–87; PULSE 87–123; RESP 16–20; TEMP 36.2–37.2; O2SAT 92–98
[2024-04-25] MEDS: ipratropium-albuterol 3 mL Neb INHALATION ×5 (03:35→23:36)
[2024-04-25 04:51] LABS: Hematocrit 33.7 % (36-47); Lymphocytes # 0.2 10^3/uL (0.8-4.8); Lymphocytes % 1.8 %; Mean Corpuscular HGB Conc 30.6 g/dL (30-55); Mean Corpuscular Volume 101.5 fl (85-98); Mean Platelet Volume 9.4 fL (7.4-10.4); Monocytes # 0.3 10^3/uL (0.2-0.9); Monocytes % 2.6 %; Neutrophils # 9.89 10^3/uL (1.8-7.7); Neutrophils % 94.5 %; Nucleated Red Blood Cells % 0 %; Platelet Count 303 10^3/cmm (157-399); Red Blood Count 3.32 10^6/uL (3.85-5.65); Red Cell Distribution Width 16.3 % (12.1-15.1); White Blood Count 10.46 10^3/uL (3.29-11.43)
[2024-04-25 05:18] LABS: Alanine Aminotransferase 28 U/L (0-33); Albumin Level 3.1 g/dL (3.5-5.2); Alkaline Phosphatase 170 U/L (35-105); Anion Gap 19.9 (5-19); Aspartate Amino Transferase 28 U/L (0-32); Blood Urea Nitrogen 45 mg/dL (8-23); Calcium 9.1 mg/dL (8.5-10.5); Carbon Dioxide 22 mmol/L (22-29); Chloride 96 mmol/L (98-107); Creatinine Clr Calc Pharmacy 22.3654; Globulin 3.6 g/dL (1.3-4.6); Glucose 162 mg/dL (65-115); Osmolality Calculated 291 mOsm/kg (285-295); Potassium 4.9 mmol/L (3.5-5.1); Sodium 133 mmol/L (136-145); Total Bilirubin 0.2 mg/dL (0.15-1.2); Total Protein 6.7 g/dL (6.6-8.7)
[2024-04-25] MEDS: bumetanide 0.25 mg/mL SDV 4 mL 1 MG IVP ×2 (05:35→16:14)
[2024-04-25] MEDS: methylPREDNISolone sod succ 40 mg/mL INJ 20 MG IVP ×3 (05:35→23:18)
[2024-04-25 05:47] LABS: NT Pro B Type Natriuretic Pept 35102 pg/mL (0-450)
[2024-04-25] MEDS: amiodarone 200 mg Tablet PO (06:14)
[2024-04-25] MEDS: levothyroxine 150 mcg Tablet PO (06:14)
[2024-04-25] MEDS: calcium carbonate 600 mg Tablet PO (06:14)
[2024-04-25] MEDS: budesonide 0.5 mg/2 mL Neb INHALATION ×2 (08:21→20:11)
[2024-04-25] MEDS: aspirin 81 mg EC Tablet PO (09:35)
[2024-04-25] MEDS: guaiFENesin 600 mg Tablet PO ×2 (09:35→18:22)
[2024-04-25] MEDS: midodrine 5 mg TABLET 10 MG PO (09:35)
[2024-04-25] MEDS: potassium chloride ER 10 mEq Tablet PO (09:35)
[2024-04-25] MEDS: lidocaine 5% Patch 1 PATCH TOPICAL ×2 (09:35→21:14)
[2024-04-25] MEDS: pantoprazole DR 40 mg Tablet PO ×2 (09:35→18:22)
[2024-04-25] MEDS: magnesium lactate 84 mg Tablet PO (09:35)
[2024-04-25] MEDS: polyethylene glycol 3350 Pkt 17 gm PO (09:36)
[2024-04-25] MEDS: HYDROcodone-acetaminophen 5-325 mg Tablet 1 TAB PO (09:52)
--- NOTE | 2024-04-25 10:44 | P.PN_ITS ---
Subjective 2 Subjective: getting HD Medications: Reviewed: Yes Vitals/I&O/Wt Last Vital Signs Temp 97.9 F 04/25/24 07:32 Pulse 99 04/25/24 08:31 Resp 18 04/25/24 08:21 BP 134/80 04/25/24 07:32 Pulse Ox 94 04/25/24 08:21 O2 Del Method Nasal Cannula 04/25/24 08:21 O2 Flow Rate 3 04/25/24 08:21 04/24/24 04/25/24 04/25/24 22:59 06:59 14:59 Intake Total 480 / 1200 Balance 480 / 1200 Weight last 48 hrs Weight 90.31 kg Weight 88.989 kg Weight 86.8 kg Physical Exam 2 Narrative: Patient is awake alert no distress Currently on 3 L O2 by nasal cannula HEENT S1-S2 regular rate and rhythm per report Decreased breath sounds bilaterally at bases per report No pedal edema Data 04/25/24 04:06 04/25/24 04:06 Micro: Microbiology 04/22/24 16:25 Gram Stain - Final Sputum - Expectorated Sputum Sputum Culture - Final A&P Assessment and plan (1) End stage renal disease on dialysis: Plan 1. End-stage renal disease: presented with volume overload , s/p HD yesterday , ultrafiltration as tolerated next HD tomorrow 2. Hypotension with HD, continue midodrine 3. Acute on chronic respiratory failure: multifactorial-secondary to CHF, pleural effusions, multiple admissions due to volume overload 4. Anemia: Hemoglobin 10.3, monitor 5. History of diabetes 6. History of atrial fibrillation Patient evaluated using audiovisual cart. Time spent 40 minutes. Attestations 2 Medical Necessity Statement*: per mediicne team Coding Level of Care Code Acute Code for Chg Fwd Diagnoses End stage renal disease on dialysis N18.6; Z99.2
[2024-04-25 11:13] LABS: Glucose Point of Care 176 mg/dL (70-110)
--- NOTE | 2024-04-25 11:36 | PC.HD ---
Heparin 1000 units loading dose administered at 1120 via arterial port of HD catheter per flat knitter helper's orders.
--- NOTE | 2024-04-25 16:00 | PM.PN ---
Subjective Subjective: Patient denies any chest pain. Has a baseline shortness of breath with activities. Overall status seems to be stable. No fever or chills. No significant leg swelling. Medications: Medication Review Details: Current Medications Acetaminophen (Acetaminophen 325 Mg Tablet) 650 mg PO Q6H PRN PRN Reason: Mild/Mod Pain Or Temp >/= 101 Last Admin: 04/24/24 14:11 Dose: 650 mg Hydrocodone Bitart/Acetaminophen (Hydrocodone-Acetaminophen 5-325 Mg Tablet) 1 tab PO TID PRN PRN Reason: Pain Last Admin: 04/25/24 09:52 Dose: 1 tab Albuterol/Ipratropium (Ipratropium-Albuterol 3 Ml Neb) 3 ml INHALATION Q4H PRN PRN Reason: SHORTNESS OF BREATH Last Admin: 04/22/24 07:47 Dose: 3 ml Albuterol/Ipratropium (Ipratropium-Albuterol 3 Ml Neb) 3 ml INHALATION Q6H.RESP JOCE Last Admin: 04/25/24 08:20 Dose: 3 ml Alprazolam (Alprazolam 0.5 Mg Tablet) 0.25 mg PO TID PRN PRN Reason: ANXIETY Last Admin: 04/24/24 21:22 Dose: 0.25 mg Amiodarone HCl (Amiodarone 200 Mg Tablet) 200 mg PO DAILY@07 [facility] Last Admin: 04/25/24 06:14 Dose: 200 mg Aspirin (Aspirin 81 Mg Ec Tablet) 81 mg PO DAILY [facility] Last Admin: 04/25/24 09:35 Dose: 81 mg Budesonide (Budesonide 0.5 Mg/2 Ml Neb) 0.5 mg INHALATION BID.RESPIRATORY JOCE Last Admin: 04/25/24 08:21 Dose: 0.5 mg Bumetanide (Bumetanide 0.25 Mg/Ml Sdv 4 Ml) 1 mg IVP BIDAC JOCE Last Admin: 04/25/24 05:35 Dose: 1 mg Bumetanide (Bumetanide 0.25 Mg/Ml Sdv 10 Ml) 2 mg IVP Q12H [facility] Calcium Carbonate (Calcium Carbonate 600 Mg Tablet) 600 mg PO DAILY@07 [facility] Last Admin: 04/25/24 06:14 Dose: 600 mg Ceftriaxone Sodium (Ceftriaxone 1,000 Mg Sdv) 1,000 mg IVP Q24H [facility]; Protocol Last Admin: 04/24/24 15:39 Dose: 1,000 mg Glucagon (Glucagon 1 Mg/Ml Kit 1 Ml) 1 mg IM ONCE PRN; Protocol PRN Reason: Adult Acute Hypoglycemia Nursing Prot. Guaifenesin (Guaifenesin 600 Mg Tablet) 600 mg PO BID [facility] Last Admin: 04/25/24 09:35 Dose: 600 mg Heparin Sodium (Porcine) (Heparin 5,000 Unit/Ml Inj 1 Ml) 5,000 unit SUBCUT Q12H [facility] Last Admin: 04/24/24 00:07 Dose: 5,000 unit Dextrose (D5w) 500 mls @ 0 mls/hr IV ONCE PRN; Protocol PRN Reason: Adult Acute Hypoglycemia Prot Dextrose (D10w) 125 mls @ 750 mls/hr IV PRN PRN; Protocol PRN Reason: Adult Acute Hypoglycemia Nursing Protocol Dextrose (D10w) 250 mls @ 1,000 mls/hr IV PRN PRN; Protocol PRN Reason: Adult Acute Hypoglycemia Nursing Protocol Sodium Chloride (Sodium Chloride 0.9%) 1,000 mls @ 0 mls/hr IV .Q0M PRN PRN Reason: hypotension or symptomatic Albumin Human (Albumin) 12.5 gm in 50 mls @ 60 mls/hr IV PRN PRN PRN Reason: Hypotension and/or symptomatic Sodium Chloride (Sodium Chloride 0.9%) 1,000 mls @ 0 mls/hr IV .Q0M PRN PRN Reason: hypotension or symptomatic Albumin Human (Albumin) 12.5 gm in 50 mls @ 60 mls/hr IV PRN PRN PRN Reason: Hypotension and/or symptomatic Insulin Human Lispro (Insulin Lispro 100 Unit/1 Ml) 0 unit SUBCUT WM&BEDTIME [facility]; Protocol Last Admin: 04/25/24 12:59 Dose: Not Given Lactulose (Lactulose Oral Liq 20 Gm/30 Ml Udc) 10 gm PO DAILY PRN; Protocol PRN Reason: Constipation (see protocol) Levothyroxine Sodium (Levothyroxine 150 Mcg Tablet) 150 mcg PO DAILY@06 [facility] Last Admin: 04/25/24 06:14 Dose: 150 mcg Lidocaine (Lidocaine 5% Patch) 1 patch TOPICAL Q12H [facility] Last Admin: 04/25/24 09:35 Dose: 1 patch Magnesium Lactate (Magnesium Lactate 84 Mg Tablet) 84 mg PO DAILY@08 [facility] Last Admin: 04/25/24 09:35 Dose: 84 mg Meclizine HCl (Meclizine 25 Mg Tablet) 25 mg PO TID PRN PRN Reason: Nausea And Vomiting Methylprednisolone Sodium Succinate (Methylprednisolone Sod Succ 40 Mg/Ml Inj) 20 mg IVP Q8H [facility] Last Admin: 04/25/24 05:35 Dose: 20 mg Midodrine (Midodrine 5 Mg Tablet) 10 mg PO TID [facility] Last Admin: 04/25/24 09:35 Dose: 10 mg Nitroglycerin (Nitroglycerin 0.4 Mg Sublingual Tablet) 0.4 mg SUBLINGUAL Q5M PRN PRN Reason: Chest Pain Nystatin (Nystatin Powder 15 Gm Btl) 1 applic TOPICAL BID PRN PRN Reason: RASH Ondansetron HCl (Ondansetron 2 Mg/Ml Sdv 2 Ml) 4 mg IVP Q8H PRN PRN Reason: vomiting, or N/V if npo Ondansetron HCl (Ondansetron 4 Mg Tablet) 4 mg PO Q8H PRN PRN Reason: NAUSEA Last Admin: 04/24/24 23:08 Dose: 4 mg Pantoprazole Sodium (Pantoprazole Dr 40 Mg Tablet) 40 mg PO BID [facility] Last Admin: 04/25/24 09:35 Dose: 40 mg Polyethylene Glycol (Polyethylene Glycol 3350 Pkt 17 Gm) 17 gm PO DAILY [facility] Last Admin: 04/25/24 09:36 Dose: 17 gm Potassium Chloride (Potassium Chloride Er 10 Meq Tablet) 10 meq PO DAILY [facility] Last Admin: 04/25/24 09:35 Dose: 10 meq Sertraline HCl (Sertraline 100 Mg Tablet) 100 mg PO BEDTIME [facility] Last Admin: 04/24/24 21:20 Dose: 100 mg Vitals/I&O/Wt Last Vital Signs Temp 97.2 F L 04/25/24 14:41 Pulse 87 04/25/24 14:41 Resp 18 04/25/24 14:41 BP 141/75 04/25/24 14:41 Pulse Ox 94 04/25/24 12:00 O2 Del Method Nasal Cannula 04/25/24 08:21 O2 Flow Rate 3 04/25/24 08:21 04/25/24 04/25/24 04/25/24 06:59 14:59 22:59 Intake Total 740 / 740 Output Total 3500 / 3500 Balance -2760 / -2760 Weight last 48 hrs Weight 190 lb 4.143 oz Weight 199 lb 1.6 oz Weight 196 lb 3 oz Physical Exam Narrative: GENERAL: The patient is alert and oriented times three. Not in any acute distress. Obese HEENT: No significant pallor, icterus or lymphadenopathy.Oral cavity: There are no mucous membrane lesions. NECK: Trachea appears to be central. No masses noted. No JVD or thyromegaly appreciated. RESPIRATORY: Chest is symmetrical. No intercostals muscle retraction or any accessory muscle activation. There is no chest wall tenderness. Breath sounds are heard bilaterally. No rales or rhonchi heard. No evidence of any consolidation. Occasional scattered expiratory wheezing BREASTS: Deferred. HEART: The heart sounds are normal. No S3 or S4. Systolic murmur grade 3/6 in the left sternal border. No diastolic murmurs. No pericardial rub ABDOMEN: No vessel pulsations or distention. No tenderness. No organomegaly appreciated. Bowel sounds are normally heard. : Deferred. RECTAL: Deferred. LYMPHATIC: No lymphadenopathy noted in the neck. EXTREMITIES: No edema or cyanosis. MUSCULOSKELETAL: No acute joint deformities or swelling SKIN: There are no significant rashes or ecchymosis NEUROPSYCHIATRIC: The patient is alert and oriented x3. Appears to be in a good mood. No tremors or rigidity noted. Data 04/25/24 04:06 04/25/24 04:06 Other Labs: Laboratory Last Values WBC 10.46 10^3/uL (3.29-11.43) 04/25/24 04:06 RBC 3.32 10^6/uL (3.85-5.65) L 04/25/24 04:06 Hgb 10.30 g/dL (11.27-16.99) L 04/25/24 04:06 Hct 33.7 % (36-47) L 04/25/24 04:06 MCV 101.5 fl (85-98) H 04/25/24 04:06 MCH 31.0 pg (27-33) 04/25/24 04:06 MCHC 30.6 g/dL (30-55) 04/25/24 04:06 RDW 16.3 % (12.1-15.1) H 04/25/24 04:06 Plt Count 303 10^3/cmm (157-399) 04/25/24 04:06 MPV 9.4 fL (7.4-10.4) 04/25/24 04:06 Neut % (Auto) 94.5 % 04/25/24 04:06 Lymph % (Auto) 1.8 % 04/25/24 04:06 Roane % (Auto) 2.6 % 04/25/24 04:06 Eos % (Auto) 0.0 % 04/25/24 04:06 Baso % (Auto) 0.0 % 04/25/24 04:06 Neut # (Auto) 9.89 10^3/uL (1.8-7.7) H 04/25/24 04:06 Lymph # (Auto) 0.2 10^3/uL (0.8-4.8) L 04/25/24 04:06 Roane # (Auto) 0.3 10^3/uL (0.2-0.9) 04/25/24 04:06 Eos # (Auto) 0.0 10^3/uL (0.0-0.8) 04/25/24 04:06 Baso # (Auto) 0.0 10^3/uL (0.0-0.1) 04/25/24 04:06 Nucleated RBC % (auto) 0 % 04/25/24 04:06 Nucleated RBCs # 0.0 /100WBC 04/25/24 04:06 PT 13.50 SECONDS (12.1-14.9) 04/24/24 13:48 INR 1.00 (0.8-1.2) 04/24/24 13:48 Sodium 133 mmol/L (136-145) L 04/25/24 04:06 Potassium 4.9 mmol/L (3.5-5.1) 04/25/24 04:06 Chloride 96 mmol/L (98-107) L 04/25/24 04:06 Carbon Dioxide 22 mmol/L (22-29) 04/25/24 04:06 Anion Gap 19.9 (5-19) H 04/25/24 04:06 BUN 45 mg/dL (8-23) H 04/25/24 04:06 Creatinine 2.3 mg/dL (0.5-0.9) H 04/25/24 04:06 GFR Calculation Not Reportable 04/25/24 04:06 Glucose 162 mg/dL (65-115) H 04/25/24 04:06 POC Glucose 176 mg/dL (70-110) H 04/25/24 10:57 Calculated Osmolality 291 mOsm/kg (285-295) 04/25/24 04:06 Calcium 9.1 mg/dL (8.5-10.5) 04/25/24 04:06 Phosphorus 3.7 mg/dL (2.5-4.5) 04/23/24 05:27 Magnesium 2.0 mg/dL (1.7-2.3) 04/24/24 02:42 Total Bilirubin 0.2 mg/dL (0.15-1.2) 04/25/24 04:06 AST 28 U/L (0-32) 04/25/24 04:06 ALT 28 U/L (0-33) 04/25/24 04:06 Alkaline Phosphatase 170 U/L (35-105) H 04/25/24 04:06 C-Reactive Protein 67.0 mg/L (0.0-4.9) H 04/21/24 19:44 NT-Pro-B Natriuret Pep 89493 pg/mL (0-450) H 04/25/24 04:06 Total Protein 6.7 g/dL (6.6-8.7) 04/25/24 04:06 Albumin 3.1 g/dL (3.5-5.2) L 04/25/24 04:06 Globulin 3.6 g/dL (1.3-4.6) 04/25/24 04:06 Procalcitonin 0.33 ng/mL (0-0.5) 04/21/24 19:44 Adenovirus (PCR) Not detected (NOT DETECT) 04/22/24 16:27 C. pneumoniae DNA (PCR) Not detected (NOT DETECT) 04/22/24 16:27 Coronavirus 229E (PCR) Not detected (NOT DETECT) 04/22/24 16:27 Hep Bs Antigen Non-reactive (Nonreactive) 04/21/24 19:30 Hep Bs Antibody < 3.5 (11.5-1000) L 04/21/24 19:30 Human Metapneumovir PCR Not detected (NOT DETECT) 04/22/24 16:27 Influenza A (H1) PCR Not detected (NOT DETECT) 04/22/24 16:27 Influ A (H1/09) PCR Not detected (NOT DETECT) 04/22/24 16:27 Influenza A (H3) PCR Not detected (NOT DETECT) 04/22/24 16:27 Influenza Type A (PCR) Not detected (NOT DETECT) 04/22/24 16:27 Influenza Type B (PCR) Not detected (NOT DETECT) 04/22/24 16:27 M. pneumoniae (PCR) Not detected (NOT DETECT) 04/22/24 16:27 Parainfluenza 1 (PCR) Not detected (NOT DETECT) 04/22/24 16:27 Parainfluenza 2 (PCR) Not detected (NOT DETECT) 04/22/24 16:27 Parainfluenza 3 (PCR) Not detected (NOT DETECT) 04/22/24 16:27 Parainfluenza 4 (PCR) Not detected (NOT DETECT) 04/22/24 16:27 RSV Type A (PCR) Not detected (NOT DETECT) 04/22/24 16:27 RSV Type B (PCR) Not detected (NOT DETECT) 04/22/24 16:27 Entero/Rhino (PCR) Not detected (NOT DETECT) 04/22/24 16:27 SARS-CoV-2 (PCR) Not detected (NOT DETECT) 04/22/24 16:27 SARS-CoV-2 Ag (Rapid) negative (Negative) 04/21/24 19:51 Micro: Microbiology 04/22/24 16:25 Gram Stain - Final Sputum - Expectorated Sputum Sputum Culture - Final A&P Assessment and plan (1) Heart failure with preserved ejection fraction: May continue on the current medications. Qualifiers: Heart failure chronicity: acute on chronic Qualified Code(s): I50.33 - Acute on chronic diastolic (congestive) heart failure (2) Severe pulmonary hypertension: Predominantly the pulmonary hypertension is group 3 with an element of group 2. A pulmonary consult might be appropriate for further management of her condition. (3) Chronic atrial fibrillation: Her ventricular response rate is under control. Patient is on long-term oral anticoagulation. This may be continued. (4) Diabetes mellitus, type II: Aggressive management would be appropriate Qualifiers: Diabetes mellitus terminal clerk insulin use: with terminal clerk use Diabetes mellitus complication status: without complication Qualified Code(s): E11.9 - Type 2 diabetes mellitus without complications; Z79.4 - [facility]CI (current) use of insulin (5) Hypothyroidism: Clinically euthyroid. May continue on the current treatment measures. Qualifiers: Hypothyroidism type: acquired Qualified Code(s): E03.9 - Hypothyroidism, unspecified (6) COPD exacerbation: The etiology, could be multifactorial. Upper respiratory infection, diastolic heart failure, sleep apnea etc. are contributing factors. (7) Morbid obesity: Patient has difficulty in exercising (8) Major depressive disorder, recurrent episode, moderate with anxious distress: May continue on the current management (9) Hypertension: Currently blood pressure is slightly elevated. May need to optimize the antihypertensive medication. Qualifiers: Hypertension type: primary hypertension Qualified Code(s): I10 - Essential (primary) hypertension Plan The patient's overall cardiovascular status seems to be stable. May continue on the current management. Possible pulmonary consult as an outpatient Attestations Medical Necessity Statement*: Disposition as per the primary Coding Level of Care Code Acute Code for [facility] Fwd Diagnoses Acute on chronic heart failure with preserved ejection fraction I50.33 Heart failure chronicity: acute on chronic Severe pulmonary hypertension I27.20 Chronic atrial fibrillation I48.20 Type 2 diabetes mellitus without complication, with long-term current use of insulin E11.9; Z79.4 Diabetes mellitus mcfp insulin use: with terminal clerk use Diabetes mellitus complication status: without complication Acquired hypothyroidism E03.9 Hypothyroidism type: acquired COPD exacerbation J44.1 Morbid obesity E66.01 Major depressive disorder, recurrent episode, moderate with anxious distress F33.1 Primary hypertension I10 Hypertension type: primary hypertension
[2024-04-25] MEDS: cefTRIAXone 1,000 mg SDV 1000 MG IVP (16:14)
[2024-04-25 17:11] LABS: Glucose Point of Care 197 mg/dL (70-110)
[2024-04-25] MEDS: insulin lispro 100 unit/1 mL SUBCUT ×2 (18:22→21:15)
--- NOTE | 2024-04-25 18:48 | PM.PN ---
Subjective Subjective: She is undergoing dialysis. She states it is harder to breathe today. Vitals/I&O/Wt Last Vital Signs Temp 98.2 F 04/25/24 16:00 Pulse 106 H 04/25/24 16:20 Resp 18 04/25/24 16:13 BP 121/67 04/25/24 16:00 Pulse Ox 97 04/25/24 16:13 O2 Del Method Nasal Cannula 04/25/24 16:13 O2 Flow Rate 3 04/25/24 16:13 04/25/24 04/25/24 04/25/24 06:59 14:59 22:59 Intake Total 740 / 740 360 / 1100 Output Total 3500 / 3500 Balance -2760 / -2760 360 / -2400 Weight last 48 hrs Weight 86.3 kg Weight 90.31 kg Weight 88.989 kg Physical Exam Narrative: Undergoing dialysis. Const: COMMON NORMALS: patient oriented x3 and alert GENERAL APPEARANCE: cooperative NUTRITIONAL APPEARANCE: obese ORIENTATION/CONSCIOUSNESS: Yes awake OTHER: Wakes up to voice. HENMT: COMMON NORMALS: oropharynx normal Neck/C-Spine: COMMON NORMALS: no JVD Resp: COMMON NORMALS: normal respiratory effort AUSCULTATION: diminished lung sounds bilateral in the lower lung hatch Cardio: COMMON NORMALS: no JVD, regular rhythm, S1 normal heart sound present, S2 normal heart sound present and No murmurs present (Cardio) RHYTHM: regular rhythm HEART SOUNDS: S1 normal heart sound present and S2 normal heart sound present GI: COMMON NORMALS: Normal to inspection, nondistended, normoactive bowel sounds present, Soft to palpation and non-tender PALPATION: Yes Soft to palpation Extremity: COMMON NORMALS: no joint enlargement and no pedal edema Neuro: COMMON NORMALS: patient oriented x3 and moves all extremities SENSORIUM/ORIENTATION: Yes alert Skin: COMMON NORMALS: no rashes or lesions noted GENERAL SKIN EXAM: no rashes or lesions noted Data 04/25/24 04:06 04/25/24 04:06 A&P Assessment and plan (1) Hypoxia: She states it is harder to breathe today. Reviewed vitals, intake and output. She is -2.16 L today. Undergoing dialysis. She is producing urine to some extent, but is difficult to measure as she is incontinent. Discussed with her chest ultrasound was performed yesterday, not enough fluid for thoracentesis was found. Discussed with laborer dairy farm. Continue diuretic for now. Continue IV steroid for today. If she is doing well tomorrow, possible discharge back to residential facility with follow-up with cardiology and pulmonology in office with regards to pulmonary hypertension. Reviewed CBC, INR, CMP. Reviewed nephrology note, cardiology note. Discussed with nursing, outpatient case manager. Resume heparin VTE prophylaxis. Continue oxygen support. Wean down as tolerating. Continue treatment also of COPD exacerbation. Sputum culture, final culture with moderate normal pennie on day 2. Continue ceftriaxone, Solu-Medrol IV, monitor for risk of hyperglycemia, hypertension, gastritis, encephalopathy with IV steroid. Will decrease Solu-Medrol dose to 20 mg. Continues with IV diuretic, reassess volume status, electrolytes, at risk of imbalance. Magnesium reviewed, today normal. Recheck. Obtained limited TTE. EF 61%, moderate LV H, grade 2 diastolic dysfunction, mild biatrial enlargement, mild MVR, mild TVR, severe pulmonary hypertension. Mild PVR. Acute on chronic hypoxic respiratory failure secondary to pulmonary vascular congestion Baseline oxygen requirement around 3 to 3.5 L Chest x-ray showed pleural effusions and pulmonary vascular congestion (2) End stage renal disease on dialysis: Continue hemodialysis per nephrology. (3) Heart failure with preserved ejection fraction: Improving with dialysis. He is reportedly producing urine but difficult to track. Continue IV diuretics for now. Monitor for risk of electrolyte deficiency with IV diuretic. Hemodialysis and IV diuresis with Bumex as above. Acute on chronic heart failure with preserved ejection fraction exacerbation Planning on dialysis for further volume control in a.m. Telemetry monitoring Qualifiers: Heart failure chronicity: acute on chronic Qualified Code(s): I50.33 - Acute on chronic diastolic (congestive) heart failure (4) Hypothyroidism: Continue home levothyroxine Qualifiers: Hypothyroidism type: acquired Qualified Code(s): E03.9 - Hypothyroidism, unspecified (5) Morbid obesity: Morbid obesity secondary to excess calories patient would benefit from weight loss (6) COPD (chronic obstructive pulmonary disease): With some more dyspnea today. Continue IV Medrol down to 20 mg. Monitor for risk of hyperglycemia, hypertension, gastritis, encephalopathy with IV steroid. With severe exacerbation with dyspnea, purulent appearing sputum with blood-tinged, worse hypoxia, diminished air entry. Scheduled DuoNeb. IV Solu-Medrol, ceftriaxone. Collect sputum culture, respiratory viral panel. Continue oxygen support, wean as tolerating. Add Flutter valve. Mucinex. Pulmicort Breathing treatments (7) Hypotension: More hypertensive today. Hold midodrine. (8) Diabetes mellitus, type II: Sliding-scale insulin correction Qualifiers: Diabetes mellitus usp insulin use: with usp use Diabetes mellitus complication status: without complication Qualified Code(s): E11.9 - Type 2 diabetes mellitus without complications; Z79.4 - auger press operator (current) use of insulin Plan DVT prophylaxis: Heparin Attestations Medical Necessity Statement*: Continue admission for assessment management of hypoxia with fluid overload, congestive heart failure, severe COPD exacerbation. and High MDM includes amount and/or complexity of data reviewed/ordered [ previous or external records, resulted lab(s)/test(s), ordered lab(s)/test(s) and other healthcare professional discussion] and described risk of complication, morbidity or mortality of management as documented Diagnoses Hypoxia R09.02 End stage renal disease on dialysis N18.6; Z99.2 Acute on chronic heart failure with preserved ejection fraction I50.33 Heart failure chronicity: acute on chronic Acquired hypothyroidism E03.9 Hypothyroidism type: acquired Morbid obesity E66.01 COPD (chronic obstructive pulmonary disease) J44.9 Hypotension I95.9 Type 2 diabetes mellitus without complication, with long-term current use of insulin E11.9; Z79.4 Diabetes mellitus usp insulin use: with plywood scarfer tender use Diabetes mellitus complication status: without complication
[2024-04-25 20:40] LABS: Glucose Point of Care 218 mg/dL (70-110)
[2024-04-25] MEDS: sertraline 100 mg Tablet PO (21:14)
[2024-04-25] MEDS: ondansetron 2 mg/ML SDV 2 mL 4 MG IVP (22:24)
[2024-04-26] VITALS (13 sets, daily range): BP systolic 111–150; BP diastolic 63–95; PULSE 68–118; RESP 15–20; TEMP 36.4–36.9; O2SAT 94–97
[2024-04-26] MEDS: HYDROcodone-acetaminophen 5-325 mg Tablet 1 TAB PO ×2 (00:35→09:21)
[2024-04-26] MEDS: heparin 5,000 unit/mL INJ 1 mL 5000 UNIT SUBCUT (01:28)
[2024-04-26] MEDS: ipratropium-albuterol 3 mL Neb INHALATION ×3 (02:52→13:43)
[2024-04-26 04:38] LABS: Basophils % 0.1 %; Hematocrit 34.5 % (36-47); Lymphocytes # 0.1 10^3/uL (0.8-4.8); Lymphocytes % 1.8 %; Mean Corpuscular HGB Conc 30.7 g/dL (30-55); Mean Corpuscular Hemoglobin 31.1 pg (27-33); Mean Corpuscular Volume 101.2 fl (85-98); Mean Platelet Volume 9.6 fL (7.4-10.4); Monocytes # 0.2 10^3/uL (0.2-0.9); Monocytes % 3.1 %; Neutrophils # 7.36 10^3/uL (1.8-7.7); Neutrophils % 94.1 %; Nucleated Red Blood Cells % 0 %; Platelet Count 270 10^3/cmm (157-399); Red Blood Count 3.41 10^6/uL (3.85-5.65); Red Cell Distribution Width 16.7 % (12.1-15.1); White Blood Count 7.82 10^3/uL (3.29-11.43)
[2024-04-26 04:53] LABS: Alanine Aminotransferase 39 U/L (0-33); Albumin Level 3.5 g/dL (3.5-5.2); Alkaline Phosphatase 182 U/L (35-105); Anion Gap 18.9 (5-19); Aspartate Amino Transferase 37 U/L (0-32); Blood Urea Nitrogen 41 mg/dL (8-23); Calcium 9.5 mg/dL (8.5-10.5); Carbon Dioxide 26 mmol/L (22-29); Chloride 96 mmol/L (98-107); Globulin 3.5 g/dL (1.3-4.6); Glucose 197 mg/dL (65-115); Osmolality Calculated 298 mOsm/kg (285-295); Potassium 4.9 mmol/L (3.5-5.1); Sodium 136 mmol/L (136-145); Total Bilirubin 0.2 mg/dL (0.15-1.2)
[2024-04-26] MEDS: methylPREDNISolone sod succ 40 mg/mL INJ 20 MG IVP ×2 (05:38→15:08)
[2024-04-26] MEDS: bumetanide 0.25 mg/mL SDV 4 mL 1 MG IVP ×2 (05:39→18:35)
[2024-04-26] MEDS: amiodarone 200 mg Tablet PO (05:41)
[2024-04-26] MEDS: levothyroxine 150 mcg Tablet PO (05:41)
[2024-04-26] MEDS: calcium carbonate 600 mg Tablet PO (06:08)
[2024-04-26 06:25] LABS: Glucose Point of Care 195 mg/dL (70-110)
--- NOTE | 2024-04-26 06:27 | P.PN_ITS ---
Subjective 2 Subjective: no new c/o Medications: Reviewed: Yes Vitals/I&O/Wt Last Vital Signs Temp 98.3 F 04/26/24 04:00 Pulse 84 04/26/24 04:00 Resp 18 04/26/24 04:00 BP 112/65 04/26/24 04:00 Pulse Ox 94 04/26/24 04:00 O2 Del Method Nasal Cannula 04/26/24 04:00 O2 Flow Rate 3 04/26/24 02:52 04/25/24 04/25/24 04/26/24 14:59 22:59 06:59 Intake Total 740 / 740 360 / 1100 120 / 1220 Output Total 3500 / 3500 Balance -2760 / -2760 360 / -2400 120 / -2280 Weight last 48 hrs Weight 88.541 kg Weight 86.3 kg Weight 90.31 kg Physical Exam 2 Narrative: Patient is awake alert no distress Currently on 3 L O2 by nasal cannula HEENT S1-S2 regular rate and rhythm per report Decreased breath sounds bilaterally at bases per report No pedal edema Data 04/26/24 04:07 04/26/24 04:07 A&P Assessment and plan (1) End stage renal disease on dialysis: Plan 1. End-stage renal disease:on TTS schedule , presented with volume overload , s/p HD yesterday , ultrafiltration as tolerated HD again today 2. Hypotension with HD, continue midodrine 3. Acute on chronic respiratory failure: multifactorial-secondary to CHF, pleural effusions, multiple admissions due to volume overload 4. Anemia: Hemoglobin 10.3, monitor 5. History of diabetes 6. History of atrial fibrillation Patient evaluated using audiovisual cart. Time spent 40 minutes. Attestations 2 Medical Necessity Statement*: per nano Coding Level of Care Code Acute Code for [facility] Fwd Diagnoses End stage renal disease on dialysis N18.6; Z99.2
[2024-04-26] MEDS: budesonide 0.5 mg/2 mL Neb INHALATION (07:24)
--- NOTE | 2024-04-26 07:52 | P.PN_ITS ---
Subjective 2 Subjective: Overall doing well. No chest pain. Had dialysis done today Vitals/I&O/Wt Last Vital Signs Temp 98.4 F 04/26/24 07:37 Pulse 118 H 04/26/24 07:37 Resp 16 04/26/24 07:37 BP 148/95 04/26/24 07:37 Pulse Ox 97 04/26/24 07:37 O2 Del Method Nasal Cannula 04/26/24 07:37 O2 Flow Rate 3 04/26/24 07:37 04/25/24 04/26/24 04/26/24 22:59 06:59 14:59 Intake Total 360 / 1100 120 / 1220 Balance 360 / -2400 120 / -2280 Weight last 48 hrs Weight 195 lb 3.2 oz Weight 190 lb 4.143 oz Weight 199 lb 1.6 oz Physical Exam 2 Narrative: GENERAL: Patient is alert, awake and oriented x3. [] NECK: No jugular vein distension. [] HEENT: No cyanosis. No icterus. No pallor. [] HEART: Regular S1 and S2. No murmur, rub or gallop. [] LUNGS: Clear to auscultate bilaterally. [] CENTRAL NERVOUS SYSTEM: Grossly nonfocal. [] EXTREMITIES: Lower extremities with 1+ edema bilaterally. Data 04/26/24 04:07 04/26/24 04:07 A&P Assessment and plan (1) Heart failure with preserved ejection fraction: Qualifiers: Heart failure chronicity: acute on chronic Qualified Code(s): I50.33 - Acute on chronic diastolic (congestive) heart failure (2) Severe pulmonary hypertension: (3) Chronic atrial fibrillation: (4) Diabetes mellitus, type II: Qualifiers: Diabetes mellitus buttermaker helper insulin use: with buttermaker helper use Diabetes mellitus complication status: without complication Qualified Code(s): E11.9 - Type 2 diabetes mellitus without complications; Z79.4 - intermediate manager (current) use of insulin (5) Hypothyroidism: Qualifiers: Hypothyroidism type: acquired Qualified Code(s): E03.9 - Hypothyroidism, unspecified (6) COPD exacerbation: (7) Morbid obesity: (8) Major depressive disorder, recurrent episode, moderate with anxious distress: (9) Hypertension: Qualifiers: Hypertension type: primary hypertension Qualified Code(s): I10 - Essential (primary) hypertension Plan Patient is stable from cardiac standpoint. No chest pain. Continue current medications. Patient is stable to be discharged from cardiac standpoint. Attestations 2 Medical Necessity Statement*: Care expected to cross 2 midnights. Coding Level of Care Code Acute Code for [facility] Fwd Diagnoses Acute on chronic heart failure with preserved ejection fraction I50.33 Heart failure chronicity: acute on chronic Severe pulmonary hypertension I27.20 Chronic atrial fibrillation I48.20 Type 2 diabetes mellitus without complication, with long-term current use of insulin E11.9; Z79.4 Diabetes mellitus buttermaker helper insulin use: with buttermaker helper use Diabetes mellitus complication status: without complication Acquired hypothyroidism E03.9 Hypothyroidism type: acquired COPD exacerbation J44.1 Morbid obesity E66.01 Major depressive disorder, recurrent episode, moderate with anxious distress F33.1 Primary hypertension I10 Hypertension type: primary hypertension
--- NOTE | 2024-04-26 08:39 | PC.HD ---
Heparin 1000 units loading dose administered via arterial port of HD catheter at 0825 per construction specialist's orders.
[2024-04-26] MEDS: pantoprazole DR 40 mg Tablet PO ×2 (09:21→18:35)
[2024-04-26] MEDS: aspirin 81 mg EC Tablet PO (09:21)
[2024-04-26] MEDS: potassium chloride ER 10 mEq Tablet PO (09:21)
[2024-04-26] MEDS: magnesium lactate 84 mg Tablet PO (09:21)
[2024-04-26] MEDS: guaiFENesin 600 mg Tablet PO ×2 (09:22→18:35)
[2024-04-26] MEDS: ondansetron 4 MG Tablet PO (09:22)
[2024-04-26] MEDS: insulin lispro 100 unit/1 mL SUBCUT ×2 (09:22→18:36)
[2024-04-26] MEDS: polyethylene glycol 3350 Pkt 17 gm PO (09:22)
--- NOTE | 2024-04-26 10:26 | PC.SOCIAL ---
Spoke to Mariela at [facility] and informed her of patient's discharge order and she would be returning today.
--- NOTE | 2024-04-26 10:27 | DCPLANNER ---
Called [facility] to set up ride Spoke with Narcisa. [facility] trip#[phone] at 1039 on 04/26/2024. Three hour window up at 1339.
[2024-04-26 11:23] LABS: Glucose Point of Care 163 mg/dL (70-110)
--- NOTE | 2024-04-26 13:09 | PC.NURSE ---
Report called at 1305 to Veronica. Updated on pt condition and treatments while in hospital. All questions and concerns answered. Informed nurse that transport has not been established yet and would notify when this completed. Stated understanding.
--- NOTE | 2024-04-26 13:22 | PC.SOCIAL ---
Called to check on ride as it was coming up on the three hour window. There were no notes available, so they were checking on it now and would call me back.
[2024-04-26] MEDS: cefTRIAXone 1,000 mg SDV 1000 MG IVP (15:08)
--- NOTE | 2024-04-26 15:23 | PM.DCS ---
Discharge Providers Date of Admission: 04/21/24 21:07 Date of Discharge: April 26, 2024 Attending Provider at Admission: Dennis Simpson MD Attending Provider at Discharge: Milton Blandon Primary Care Provider: Donavan Champagne DO Diagnoses at Discharge Discharge Diagnosis (1) End stage renal disease on dialysis: Status: Chronic Reason for Visit Reason for Visit: SOB Brief History: Myesha Parker is a 73 year old female with a past medical history significant for end-stage renal disease on hemodialysis Sunday, chronic hypoxic respiratory failure on 3 L baseline, type 2 diabetes mellitus, stroke, sleep apnea, chronic atrial fibrillation, fibromyalgia, COPD and multiple other comorbidities who presents to the emergency department with shortness of breath. She reports onset several days ago. She notes that she missed dialysis last Sunday but went on and Sunday. Exertion worsens her breathing. Rest improves her breathing. She endorses associated frothy cough. Denies chest pains, fevers, chills, nausea or emesis. In the emergency department, patient was found to require 5 L of oxygen. Chest x-ray showed unchanged pleural effusions and pulmonary vascular congestion consistent with fluid overload. Nephrology consulted, recommended IV Lasix and dialysis in the a.m. Hospital Course Hospital Course She was started on IV diuretics, nephrology was consulted and she underwent extra sessions of dialysis. Noted worsening pulmonary hypertension, large pleural effusions on imaging and echocardiogram. Her dialysis is more difficult, sometimes with her blood pressure getting softer, cannot remove quite as much at the same time. She does not make much urine, but does seem to produce some although is incontinent and this has been difficult to track. We additionally considered thoracentesis, but on reassessment there was no longer enough fluid to drain. She did respond overall to the treatments with her oxygen requirement coming down to baseline at 3 L. Subjectively she is feeling better. She was assessed by cardiology, she did have a stress test back in September showing small area of slightly decreased tracer uptake in basal inferior region with some reversibility, but no reversible defects on prone imaging, making the reliability of the finding questionable. Repeat stress testing was not found to be necessary at current time. She was also found to be in severe COPD exacerbation with diminished air entry, productive cough, with worsening hypoxia, was treated with Solu-Medrol, ceftriaxone, breathing treatments, oxygen support. Gradually with improvement. Will complete a brief course with cefdinir, prednisone. She is asked to follow-up with cardiology, continue dialysis follow-up with nephrology, and follow-up with pulmonology for additional assessment with finding of suspected worsening pulmonary hypertension. These findings were discussed with her, and her . Physical Exam Narrative: Undergoing dialysis. Const: COMMON NORMALS: patient oriented x3 and alert GENERAL APPEARANCE: cooperative NUTRITIONAL APPEARANCE: obese ORIENTATION/CONSCIOUSNESS: Yes awake OTHER: Wakes up to voice. HENMT: COMMON NORMALS: oropharynx normal Neck/C-Spine: COMMON NORMALS: no JVD Resp: COMMON NORMALS: normal respiratory effort and clear to auscultation bilaterally AUSCULTATION: clear to auscultation bilaterally Cardio: COMMON NORMALS: no JVD, regular rhythm, S1 normal heart sound present, S2 normal heart sound present and No murmurs present (Cardio) RHYTHM: regular rhythm HEART SOUNDS: S1 normal heart sound present and S2 normal heart sound present GI: COMMON NORMALS: Normal to inspection, nondistended, normoactive bowel sounds present, Soft to palpation and non-tender PALPATION: Yes Soft to palpation Extremity: COMMON NORMALS: no joint enlargement and no pedal edema Neuro: COMMON NORMALS: patient oriented x3 and moves all extremities SENSORIUM/ORIENTATION: Yes alert Skin: COMMON NORMALS: no rashes or lesions noted GENERAL SKIN EXAM: no rashes or lesions noted Discharge Data Studies Completed and Pending Completed Studies During Hospitalization Category Date Time Status CXRP [XR chest 1V portable [id number]] Stat Exams 04/21/24 19:27 Completed CV. echo limited [id number] Routine Ultrasound 04/22/24 14:59 [place] chest [id number] Routine Ultrasound 04/24/24 11:59 Completed Pending at discharge Category Date Time Status Complete Blood Count w/Auto AM LABS Lab 04/27/24 04:00 Ordered Complete Blood Count w/Auto AM LABS Lab 04/28/24 04:00 Ordered Comprehensive Metabolic Panel AM LABS Lab 04/27/24 04:00 Ordered Comprehensive Metabolic Panel AM LABS Lab 04/28/24 04:00 Ordered Radiology Impressions Chest X-Ray 04/21/24 19:27 IMPRESSION: 1. Bilateral pleural effusions, unchanged. 2. Radiographic findings suggestive of vascular congestion and mild fluid overload status. Chest Ultrasound 04/24/24 11:59 IMPRESSION: Insufficient pleural fluid for thoracentesis. Laboratory Results WBC 7.82 10^3/uL (3.29-11.43) 04/26/24 04:07 RBC 3.41 10^6/uL (3.85-5.65) L 04/26/24 04:07 Hgb 10.60 g/dL (11.27-16.99) L 04/26/24 04:07 Hct 34.5 % (36-47) L 04/26/24 04:07 MCV 101.2 fl (85-98) H 04/26/24 04:07 MCH 31.1 pg (27-33) 04/26/24 04:07 MCHC 30.7 g/dL (30-55) 04/26/24 04:07 RDW 16.7 % (12.1-15.1) H 04/26/24 04:07 Plt Count 270 10^3/cmm (157-399) 04/26/24 04:07 MPV 9.6 fL (7.4-10.4) 04/26/24 04:07 Neut % (Auto) 94.1 % 04/26/24 04:07 Lymph % (Auto) 1.8 % 04/26/24 04:07 Brantley % (Auto) 3.1 % 04/26/24 04:07 Eos % (Auto) 0.0 % 04/26/24 04:07 Baso % (Auto) 0.1 % 04/26/24 04:07 Neut # (Auto) 7.36 10^3/uL (1.8-7.7) 04/26/24 04:07 Lymph # (Auto) 0.1 10^3/uL (0.8-4.8) L 04/26/24 04:07 Brantley # (Auto) 0.2 10^3/uL (0.2-0.9) 04/26/24 04:07 Eos # (Auto) 0.0 10^3/uL (0.0-0.8) 04/26/24 04:07 Baso # (Auto) 0.0 10^3/uL (0.0-0.1) 04/26/24 04:07 Nucleated RBC % (auto) 0 % 04/26/24 04:07 Nucleated RBCs # 0.0 /100WBC 04/26/24 04:07 PT 13.50 SECONDS (12.1-14.9) 04/24/24 13:48 INR 1.00 (0.8-1.2) 04/24/24 13:48 Sodium 136 mmol/L (136-145) 04/26/24 04:07 Potassium 4.9 mmol/L (3.5-5.1) 04/26/24 04:07 Chloride 96 mmol/L (98-107) L 04/26/24 04:07 Carbon Dioxide 26 mmol/L (22-29) 04/26/24 04:07 Anion Gap 18.9 (5-19) 04/26/24 04:07 BUN 41 mg/dL (8-23) H 04/26/24 04:07 Creatinine 2.1 mg/dL (0.5-0.9) H 04/26/24 04:07 GFR Calculation Not Reportable 04/26/24 04:07 Glucose 197 mg/dL (65-115) H 04/26/24 04:07 POC Glucose 163 mg/dL (70-110) H 04/26/24 11:16 Calculated Osmolality 298 mOsm/kg (285-295) H 04/26/24 04:07 Calcium 9.5 mg/dL (8.5-10.5) 04/26/24 04:07 Phosphorus 3.7 mg/dL (2.5-4.5) 04/23/24 05:27 Magnesium 2.0 mg/dL (1.7-2.3) 04/24/24 02:42 Total Bilirubin 0.2 mg/dL (0.15-1.2) 04/26/24 04:07 AST 37 U/L (0-32) H 04/26/24 04:07 ALT 39 U/L (0-33) H 04/26/24 04:07 Alkaline Phosphatase 182 U/L (35-105) H 04/26/24 04:07 C-Reactive Protein 67.0 mg/L (0.0-4.9) H 04/21/24 19:44 NT-Pro-B Natriuret Pep 77117 pg/mL (0-450) H 04/25/24 04:06 Total Protein 7.0 g/dL (6.6-8.7) 04/26/24 04:07 Albumin 3.5 g/dL (3.5-5.2) 04/26/24 04:07 Globulin 3.5 g/dL (1.3-4.6) 04/26/24 04:07 Procalcitonin 0.33 ng/mL (0-0.5) 04/21/24 19:44 Adenovirus (PCR) Not detected (NOT DETECT) 04/22/24 16:27 C. pneumoniae DNA (PCR) Not detected (NOT DETECT) 04/22/24 16:27 Coronavirus 229E (PCR) Not detected (NOT DETECT) 04/22/24 16:27 Hep Bs Antigen Non-reactive (Nonreactive) 04/21/24 19:30 Hep Bs Antibody < 3.5 (11.5-1000) L 04/21/24 19:30 Human Metapneumovir PCR Not detected (NOT DETECT) 04/22/24 16:27 Influenza A (H1) PCR Not detected (NOT DETECT) 04/22/24 16:27 Influ A (H1/09) PCR Not detected (NOT DETECT) 04/22/24 16:27 Influenza A (H3) PCR Not detected (NOT DETECT) 04/22/24 16:27 Influenza Type A (PCR) Not detected (NOT DETECT) 04/22/24 16:27 Influenza Type B (PCR) Not detected (NOT DETECT) 04/22/24 16:27 M. pneumoniae (PCR) Not detected (NOT DETECT) 04/22/24 16:27 Parainfluenza 1 (PCR) Not detected (NOT DETECT) 04/22/24 16:27 Parainfluenza 2 (PCR) Not detected (NOT DETECT) 04/22/24 16:27 Parainfluenza 3 (PCR) Not detected (NOT DETECT) 04/22/24 16:27 Parainfluenza 4 (PCR) Not detected (NOT DETECT) 04/22/24 16:27 RSV Type A (PCR) Not detected (NOT DETECT) 04/22/24 16:27 RSV Type B (PCR) Not detected (NOT DETECT) 04/22/24 16:27 Entero/Rhino (PCR) Not detected (NOT DETECT) 04/22/24 16:27 SARS-CoV-2 (PCR) Not detected (NOT DETECT) 04/22/24 16:27 SARS-CoV-2 Ag (Rapid) negative (Negative) 04/21/24 19:51 Vitals Last Vital Signs Temp 98.1 F 04/26/24 13:38 Pulse 111 H 04/26/24 13:57 Resp 20 H 04/26/24 13:46 BP 119/82 04/26/24 13:38 Pulse Ox 96 04/26/24 13:46 O2 Del Method Nasal Cannula 04/26/24 13:46 O2 Flow Rate 3 04/26/24 13:46 Discharge Plan Discharge Patient Disposition: Xfer SNF Condition: Stable Prescriptions: New bumetanide 2 mg tablet 2 mg PO DAILY Qty: 90 0RF cefdinir 300 mg capsule 300 mg PO BID 5 Days Qty: 10 0RF prednisone 20 mg tablet 20 mg PO DAILY 3 Days Qty: 3 0RF guaifenesin 400 mg tablet 400 mg PO TID PRN (Reason: congestion) Qty: 30 0RF Klor-Con 10 10 mEq Tablet Extended Release 10 meq PO DAILY Qty: 30 0RF Continued nitroglycerin [Nitrostat] 0.4 mg tablet, sublingual 0.4 mg SUBLINGUAL Q5M PRN (Reason: Chest Pain) Qty: 30 3RF Rx Instructions: MAX 3 DOSES PER EPISODE levothyroxine [Euthyrox] 150 mcg tablet 150 mcg PO DAILY@06 calcium carbonate [Calcium 600] 600 mg calcium (1,500 mg) tablet 600 mg PO DAILY cholecalciferol (vitamin D3) [Vitamin D3] 25 mcg (1,000 unit) Tablet 1,000 unit PO DAILY pantoprazole 40 mg tablet,delayed release (DR/EC) 40 mg PO BID glucose 4 gram tablet,chewable 4 g PO PRN PRN (Reason: Hypoglycemia) Trelegy Ellipta 200-62.5-25 mcg blister with device 1 inh INHALATION DAILY Qty: 28 0RF insulin lispro [Humalog U-100 Insulin] 100 unit/mL Solution See Rx Instructions .ROUTE .COMPLEX MDD 40 Qty: 10 0RF Rx Instructions: per sliding scale with meals 150-200=2 units 201-250=4 units 251-300=6 units 301-350=8 units 351-400=10 units 401-450=12 units acetaminophen 325 mg Tablet 650 mg PO Q6H PRN (Reason: PAIN OR INCREASED TEMP) amiodarone 200 mg tablet 200 mg PO DAILY meclizine 25 mg tablet 25 mg PO TID PRN (Reason: Nausea And Vomiting) bisacodyl [Dulcolax (bisacodyl)] 10 mg Suppository 10 mg MI DAILY PRN (Reason: if no bm x3 days ) nystatin [Nyamyc] 100,000 unit/gram powder See Rx Instructions .ROUTE .COMPLEX Rx Instructions: as directed every shift as needed (apply between thighs and affected areas twice a day as needed) magnesium L-lactate 84 mg tablet extended release 84 mg PO DAILY@08 aspirin 81 mg Tablet,Delayed Release (Dr/Ec) 81 mg PO DAILY Qty: 30 0RF folic acid 1 mg tablet 1 mg PO DAILY melatonin 1 mg tablet 1 mg PO BEDTIME MediHoney (honey) 80 % gel See Rx Instructions .ROUTE .COMPLEX Rx Instructions: twice a day to coccyx; cleanse with NS and gauze, apply medi-honey to wound bed and apply loose ABD (no tape) albuterol sulfate 0.63 mg/3 mL Solution For Nebulization 0.63 mg INHALATION TID PRN (Reason: Shortness Of Breath Or Wheezing) polyethylene glycol 3350 [Miralax] 17 gram Powder In Packet 17 g PO DAILY lactulose 10 gram/15 mL (15 mL) Solution 15 ml PO DAILY pyridoxine (vitamin B6) 500 mg Tablet 500 mg PO DAILY sertraline 100 mg Tablet 100 mg PO BEDTIME carica papaya Tablet,Chewable 4 tab PO TIDWM Rx Instructions: WITH MEALS lidocaine 5 % Adhesive Patch,Medicated 1 patch TOPICAL BID Rx Instructions: leave on most painful area for up to 12 hrs ondansetron 4 mg tablet,disintegrating 4 mg PO Q6H PRN (Reason: Nausea And Vomiting) Held methotrexate sodium 2.5 mg Tablet 6 mg PO Q7D Hold Instructions: Resume on 05/02/24. Rx Instructions: ON SUNDAY Discontinued midodrine 5 mg Tablet 10 mg PO TID 30 Days Qty: 180 0RF Rx Instructions: hold if blood pressure >140/80 Discharge Orders: Discharge Order (Routine); Ordered 04/26/24 Ordered By: Milton Blandon Referrals: [facility] [Outside] Rebeca Dominguez MD [Physician] - 1 week (Pulmonary HTN) Keisha Coronel MD [Physician] - 2 weeks Donavan Chapmagne DO [Primary Care Provider] - 4-7 days Discharge Diet: Cardiac and Diabetic Discharge Activity: Increase activity as tolerated, As per PT/OT instructions and Oxygen as instructed Patient Instructions: Dialysis Diet (DC), Hemodialysis (DC), Opioid Safety Activity Restrictions/Additional Instructions: Fluid restriction 1500 mL. Continue dialysis. Please follow-up with cardiology as well as steward/stewardess wine in office with regards to worsening pulmonary hypertension. Follow-up with your primary doctor regarding the above as well as COPD exacerbation and other chronic problems. As your blood pressure is higher, midodrine is discontinued at the moment. Discharge Attestations Time Spent in Discharge Care*: greater than 30 min Status at Discharge: Cognitive status at discharge: cognitively intact, Behavioral status at discharge: cooperative, Quality Metrics Clinical Quality Measures [ No reported AMI, CVA or VTE this stay] Coding Level of Care Code 97392 Total time (in minutes) for Discharge: 55 Diagnoses End stage renal disease on dialysis N18.6; Z99.2
--- NOTE | 2024-04-26 16:27 | DCPLANNER ---
Called [facility] to get an ETA on the ride and they estimated 3-4 hours from 1627.
[2024-04-26 17:36] LABS: Glucose Point of Care 233 mg/dL (70-110)
--- NOTE | 2024-04-26 20:19 | PC.NURSE ---
Addendum entered by Olga Ly RN 04/26/24 20:27: Report was called to Parul CR @ [facility]. Original Note: [facility] here to transport pt back to [facility], is at bedside. Pt stable, no distress present. IV removed prior to d/c. [facility] called to tell them pt was on her way back to the facility.
== END 2024-04-26 20:27 | disposition skilled nursing facility (03) ==
LOC: ER 20:46 → MEDSURG 21:07
PROVIDERS: Hospitalist; Internal Medicine Cardiovascular Disease; Admitting Provider Internal Medicine; Emergency Provider Emergency Medicine; PCP Internal Medicine; Visit Provider Internal Medicine
DX: E11.22 Type 2 diabetes mellitus with diabetic chronic kidney disease (principal); I13.0 Hypertensive heart and chronic kidney disease with heart failure and stage 1 through stage 4 chronic kidney disease, or unspecified chronic kidney disease; N18.6 End stage renal disease; Z99.2 Dependence on renal dialysis; I50.33 Acute on chronic diastolic (congestive) heart failure; J96.11 Chronic respiratory failure with hypoxia; Z99.81 Dependence on supplemental oxygen; D63.1 Anemia in chronic kidney disease; Z86.73 Personal history of transient ischemic attack (TIA), and cerebral infarction without residual deficits; G47.30 Sleep apnea, unspecified; I48.20 Chronic atrial fibrillation, unspecified; M79.7 Fibromyalgia; J44.1 Chronic obstructive pulmonary disease with (acute) exacerbation; F33.1 Major depressive disorder, recurrent, moderate; Z79.4 Long term (current) use of insulin; I27.20 Pulmonary hypertension, unspecified; E03.9 Hypothyroidism, unspecified; E66.01 Morbid (severe) obesity due to excess calories; Z68.33 Body mass index [BMI] 33.0-33.9, adult; I95.9 Hypotension, unspecified; J90 Pleural effusion, not elsewhere classified; I25.10 Atherosclerotic heart disease of native coronary artery without angina pectoris; I25.2 Old myocardial infarction; Z87.891 Personal history of nicotine dependence
CPT/HCPCS: 32555; 36415; 36416; 71045; 76604; 80048; 80053; 82962; 83735; 83880; 84100; 84145; 85025; 85610; 86140; 86706; 87070; 87205; 87340; 87426; 87486; 87581; 87633; 90471; 90732; 90935; 93005; 93308; 94640; 96365; 96366; 96367; 96372; 96375; 96376; 99285; G0378; J0696; J1644; J1815; J1940; J2405; J2919; J3475; J3490; J7626; Q0162; Q3014

== ENCOUNTER 2024-04-30 18:46 | Inpatient (IN) | payer MEDICARE, MEDICAID, SELFPAY ==
[2024-04-30] VITALS (15 sets, daily range): BP systolic 85–157; BP diastolic 49–116; PULSE 99–134; RESP 18–35; TEMP 36.7–36.9; O2SAT 85–100; BMI 33.6
--- NOTE | 2024-04-30 18:51 | ECG_ITS ---
[facility] Test Date: 2024-04-30 Pat Name: Myesha Parker Department: Room: Gender: Female Certified Physical Therapist Assistant: : [id number] Requested By: Karma Garner Order Number: [id number] Wilbur MD: Keisha Coronel M.D. Measurements Intervals [place] Rate: 139 P: 0 WV: 0 QRS: -90 QRSD: 155 T: 83 QT: 326 QTc: 497 Interpretive Statements ATRIAL FIBRILLATION WITH RAPID VENTRICULAR RESPONSE RIGHT BUNDLE BRANCH BLOCK [120+ ms QRS DURATION, UPRIGHT V1, 40+ ms S IN I/aVL/V4/V5/V6] INFERIOR MYOCARDIAL INFARCTION , POSSIBLY ACUTE [40+ ms Q WAVE AND/OR ST/T ABNORMALITY IN II/aVF] ANTEROLATERAL MYOCARDIAL INFARCTION , OF INDETERMINATE AGE [40+ ms Q WAVE IN I/aVL/V3-V6] ACUTE FL Compared to ECG 04/21/2024 19:25:32 Right-axis deviation no longer present Myocardial infarct finding still present Electronically Signed On 04-30-2024 22:37:50 CDT by Keisha Coronel M.D. [id number]
--- NOTE | 2024-04-30 18:52 | XRR_ITS ---
PROCEDURE INFORMATION: Exam: XR Chest Exam date and time: 04/30/2024 6:56 PM Age: 73 years old Clinical indication: Cough and dyspnea; Additional info: SOB TECHNIQUE: Imaging protocol: Radiologic exam of the chest. Views: 1 view. COMPARISON: CR (CHEST, ) 04/21/2024 7:31 PM FINDINGS: Tubes, catheters and devices: Right-sided dialysis catheter tip overlies the cavoatrial junction. Lungs: Mild right basilar atelectasis. Pleural spaces: Small right pleural effusion. Heart/Mediastinum: Unremarkable. No cardiomegaly. Bones/joints: Unremarkable. XR/XR chest 1V portable [id number] IMPRESSION: Limited evaluation of the lung parenchyma secondary to rotation. Small right pleural effusion with subjacent atelectasis.
--- NOTE | 2024-04-30 19:07 | ED_ITS ---
HPI - SOB/Dyspnea 2 General: Chief Complaint: Shortness of Breath/Dyspnea Stated Complaint: A FIB, Resp Distress, Covid + Time Seen by Provider: 04/30/24 18:47 Source: patient and EMS Mode of arrival: EMS Limitations: no limitations History of Present Illness: HPI Narrative: 73-year-old female with a history of end -stage renal disease on dialysis along with A-fib and CHF. Patient was diagnosed with COVID 2 days ago she did receive dialysis yesterday. Patient sent here from the alf she is having increasing respiratory distress and with A-fib with RVR patient here is tachypneic and has rales patient is in A-fib with RVR into the 130s. Patient states she feels very short of breath and feels fluid overloaded she denies any vomiting diarrhea or fever. Associated symptoms: Deny abdominal pain, chest pain, fever(s), nausea or vomiting Related Data Home Medications Medication Instructions Recorded Confirmed cholecalciferol (vitamin D3) 25 1,000 unit PO DAILY 10/12/19 04/22/24 mcg (1,000 unit) tablet (Vitamin D3) calcium carbonate (Calcium 600) 600 mg PO DAILY 06/27/21 04/22/24 levothyroxine 150 mcg tablet 150 mcg PO DAILY@06 06/27/21 04/22/24 (Euthyrox) pantoprazole 40 mg tablet,delayed 40 mg PO BID 09/13/21 04/22/24 release glucose 4 gram chewable tablet 4 g PO PRN PRN Hypoglycemia 06/17/23 04/22/24 acetaminophen 325 mg tablet 650 mg PO Q6H PRN PAIN OR 09/30/23 04/22/24 INCREASED TEMP amiodarone 200 mg tablet 200 mg PO DAILY 09/30/23 04/22/24 bisacodyl 10 mg rectal suppository 10 mg MA DAILY PRN if no bm x3 days 09/30/23 04/22/24 (Dulcolax (bisacodyl)) meclizine 25 mg tablet 25 mg PO TID PRN Nausea And 09/30/23 04/22/24 Vomiting nystatin 100,000 unit/gram topical See Rx Instructions .Route .COMPLEX 09/30/23 04/22/24 powder ([facility]) magnesium L-lactate 84 mg 84 mg PO DAILY@10/12/23 04/22/24 tablet,extended release methotrexate sodium 2.5 mg tablet 6 mg PO Q7D 10/12/23 04/22/24 folic acid 1 mg tablet 1 mg PO DAILY 01/09/24 04/22/24 honey 80 % topical gel (MediHoney See Rx Instructions .Route .COMPLEX 01/09/24 04/22/24 (honey)) melatonin 1 mg tablet 1 mg PO BEDTIME 01/09/24 04/22/24 carica papaya 4 tab PO TIDWM 03/17/24 04/22/24 lidocaine 5 % topical patch 1 patch topical BID 03/17/24 04/22/24 sertraline 100 mg tablet 100 mg PO BEDTIME 03/17/24 04/22/24 ondansetron 4 mg disintegrating 4 mg PO Q6H PRN Nausea And Vomiting 03/28/24 04/22/24 tablet albuterol sulfate 0.63 mg/3 mL 0.63 mg inhalation TID PRN 04/22/24 04/22/24 solution for nebulization Shortness Of Breath Or Wheezing lactulose 10 gram/15 mL (15 mL) 15 ml PO DAILY 04/22/24 04/22/24 oral solution polyethylene glycol 3350 17 gram 17 g PO DAILY 04/22/24 04/22/24 oral powder packet (Miralax) pyridoxine (vitamin B6) 500 mg 500 mg PO DAILY 04/22/24 04/22/24 tablet Previous Rx's Medication Instructions Recorded nitroglycerin 0.4 mg sublingual 0.4 mg sublingual Q5M PRN Chest 02/08/21 tablet (Nitrostat) Pain #30 tabs fluticasone fur. 200 mcg-umeclid 1 inh inhalation DAILY #28 ea 06/20/23 62.5 mcg-vilant 25 mcg inhalat.powder (Trelegy Ellipta) insulin lispro 100 unit/mL See Rx Instructions .Route 08/17/23 subcutaneous solution (Humalog .COMPLEX #10 mL U-100 Insulin) aspirin 81 mg tablet,delayed 81 mg PO DAILY #30 tabs 10/19/23 release bumetanide 2 mg tablet 2 mg PO DAILY #90 tabs 04/25/24 guaifenesin 400 mg tablet 400 mg PO TID PRN congestion #30 04/25/24 tabs potassium chloride 10 mEq 10 meq PO DAILY #30 tabs 04/25/24 tablet,extended release (Klor-Con) Allergies Allergy/AdvReac Type Severity Reaction Status Date / Time adhesive tape Allergy rash Verified 04/21/24 23:05 cinnamon Allergy sinus Verified 04/21/24 23:05 codeine Allergy unknown Verified 04/21/24 23:05 cedar Allergy sinus Uncoded 04/21/24 19:30 pine Allergy sinus Uncoded 04/21/24 19:30 pork food Allergy ADR-Nausea Uncoded 04/21/24 19:30 Review of Systems 2 Const: Reports: chills; Denies: fever(s), body aches or change in appetite ENMT: Denies: throat pain or dental pain Card: Denies: chest pain Resp: Reports: dyspnea GI: Denies: abdominal pain, nausea, vomiting or diarrhea Musc: Denies: neck pain or back pain Skin/Breast: Denies: rash Neuro: Denies: headache(s) PFSH ED 2 PFSH: Medical History History of cardiovascular stress test 09/2023 History of stroke Diabetes mellitus, type II Myasthenia gravis listed in [facility] records Amber albicans infection 2022 Clostridioides difficile diarrhea 12/18 Inflammatory arthritis Sleep apnea in adult noncompliant with CPAP/BiPAP in outpt setting (machine feels different) Colon polyp Gastric polyposis UGIB (upper gastrointestinal bleed) 2020 Chronic atrial fibrillation not on chronic anticoagulation due to recurrent falls and prior GI bleed NSTEMI (non-ST elevated myocardial infarction) Congestive heart failure (CHF) Orthostatic hypotension Chronic post-traumatic stress disorder (PTSD) Major depressive disorder, recurrent episode, moderate with anxious distress Duodenal ulcer due to bacteria 08/16 Coronary artery disease Chronic knee pain Chronic low back pain COVID-14 August 2020 Seronegative rheumatoid arthritis of both hands Osteoarthritis of knees, bilateral Fibromyalgia Lung nodule Unstable angina Urgency incontinence Left renal mass COPD (chronic obstructive pulmonary disease) Oxygen dependent, 3-3.5 L at baseline Hypothyroidism Liver cirrhosis Hyperlipidemia Hypertension Recurrent UTI Surgical History S/P dialysis catheter insertion 07/2023 History of colonoscopy 06/23/22 History of esophagogastroduodenoscopy (EGD) 06/23/22 History of cholecystectomy History of thyroid surgery History of cardiac cath History of hysterectomy History of knee replacement Family History Other CAD (coronary artery disease) Cancer Denies family history of Anesthesia complication Bleeding disorder Social History Smoking and tobacco/nicotine status: former use of tobacco/nicotine Quit status (tobacco/nicotine): has quit using Year quit tobacco: 2005 Second hand smoke exposure: No Alcohol intake: never Substance/Drug Use: never Adopted: No Caregiver/support person: No Lives independently: No Household members: spouse Housing: Shelter Marital status: Current occupational status: retired Current gender identity: Female Physical Exam 2 Const: COMMON NORMALS: patient oriented x3 GENERAL APPEARANCE: in distress and ill appearing HENMT: COMMON NORMALS: normocephalic and atraumatic HEAD & SCALP: n ormocephalic and atraumatic Neck/C-Spine: COMMON NORMALS: full ROM and supple Chest: COMMONS NORMALS: normal inspection of the chest Resp: EFFORT & INSPECTION: Yes tachypneic and Yes respiratory distress A USCULTATION: rales Cardio: COMMON NORMALS: No murmurs present (Cardio) RATE: tachycardic R HYTHM: abnormal rhythm irregularly irregular GI: COMMON NORMALS: Normal to inspection, nondistended, normoactive bowel sounds present, Soft to palpation, non-tender and no masses PALPATION: Yes Soft to palpation Extremity: COMMON NORMALS: normal to inspection and full ROM Neuro: COMMON NORMALS: patient oriented x3, moves all extremities and no focal motor deficits Psych: COMMON NORMALS: mental status grossly normal, Normal thought process present and cooperative THOUGHT PROCESS: Normal thought process present Skin: COMMON NORMALS: no rashes or lesions noted and no wounds GENERAL SKIN EXAM: no rashes or lesions noted Course 2 Vital Signs: Vital signs: Vital Signs Temperature 98.5 F 04/30/24 18:47 Pulse Rate 125 H 04/30/24 20:19 Respiratory Rate 29 H 04/30/24 20:19 Blood Pressure 122/82 04/30/24 20:19 Pulse Oximetry 97 04/30/24 20:19 Oxygen Delivery Me thod BiPAP 04/30/24 20:19 Oxygen Flow Rate 4 04/30/24 20:07 Fraction of Inspir ed Oxygen 50 04/30/24 19:00 MDM - SOB/Dyspnea Medical Decision Making Patient presents for shortness of breath had been recently diagnosed with COVID she also has a history of end-stage renal disease on dialysis she was in distress when she arrived I did place her on BiPAP. She also has a history A- fib was in A-fib with RVR give her Cardizem at first blood pressure lowered so switched over to amiodarone amiodarone drip I spoke to the hospitalist will admit the ICU Medical Records I reviewed the patient's medical records. Lab Data I reviewed the patient's lab results. 04/30/24 19:17 04/30/24 19:17 Labs/Radiology: Radiology Impressions Chest X-Ray 04/30/24 18:52 IMPRESSION: Limited evaluation of the lung parenchyma secondary to rotation. Small right pleural effusion with subjacent atelectasis. Laboratory Results WBC 13.06 10^3/uL (3.29-11.43) H 04/30/24 19:17 RBC 3.60 10^6/uL (3.85-5.65) L 04/30/24 19:17 Hgb 11.30 g/dL (11.27-16.99) 04/30/24 19:17 Hct 36.8 % (36-47) 04/30/24 19:17 MCV 102.2 fl (85-98) H 04/30/24 19:17 MCH 31.4 pg (27-33) 04/30/24 19:17 MCHC 30.7 g/dL (30-55) 04/30/24 19:17 RDW 17.2 % (12.1-15.1) H 04/30/24 19:17 Plt Count 241 10^3/cmm (157-399) 04/30/24 19:17 MPV 9.5 fL (7.4-10.4) 04/30/24 19:17 Lymph % (Auto) Not Reportable 04/30/24 19:17 Moody % (Auto) Not Reportable 04/30/24 19:17 Lymph # (Auto) Not Reportable 04/30/24 19:17 Moody # (Auto) Not Reportable 04/30/24 19:17 Total Counted 100 (0-100) 04/30/24 19:17 Atypical Lymphs % 0.0 % (0-5) 04/30/24 19:17 Absolute Neutrophils 12.0 10^3/cmm (1.4-6.5) H 04/30/24 19:17 Segmented Neutrophils 87 % 04/30/24 19:17 Abs Segm Neuts (Man) 11.4 10/cmm (1.6-7.1) H 04/30/24 19:17 Band Neutrophils 5.0 % 04/30/24 19:17 Abs Band Neuts (Man) 0.7 10^3/cmm (0.0-1.2) 04/30/24 19:17 Absolute Lymphocytes 0.1 10^3/cmm (1.2-3.4) L 04/30/24 19:17 Lymphocytes (Manual) 1 % 04/30/24 19:17 Monocytes (Manual) 2.0 % 04/30/24 19:17 Absolute Monocytes 0.3 10^3/cmm (0.1-0.6) 04/30/24 19:17 Eosinophils (Manual) 1 % 04/30/24 19:17 Absolute Eosinophils 0.1 10^3/cmm (0.0-0.7) 04/30/24 19:17 Basophils (Manual) 0.0 % 04/30/24 19:17 Absolute Basophils 0.0 10^3/cmm (0.0-0.2) 04/30/24 19:17 Metamyelocytes 3.0 % 04/30/24 19:17 Myelocytes 1.0 % 04/30/24 19:17 Platelet Estimate Normal (Normal) 04/30/24 19:17 Anisocytosis 1+ H 04/30/24 19:17 Macrocytosis 1+ H 04/30/24 19:17 PT 14.20 SECONDS (12.1-14.9) 04/30/24 19:17 INR 1.07 (0.8-1.2) 04/30/24 19:17 Specimen Type Arterial 04/30/24 19:01 Sample Site Radial, left 04/30/24 19:01 ABG pH 7.37 (7.35-7.45) 04/30/24 19:01 ABG pCO2 44.2 mmHg (35-45) 04/30/24 19:01 ABG pO2 77.4 mmHg (80.0-100.0) L 04/30/24 19:01 ABG PO2/FiO2 Ratio 154 04/30/24 19:01 ABG HCO3 25.3 mmol/L (22-26) 04/30/24 19:01 ABG Base Excess -0.3 mmol/L (-2.0-2.0) 04/30/24 19:01 Memo Test Pos 04/30/24 19:01 Hematocrit 34.9 % (37-47) L 04/30/24 19:01 Hgb O2 Saturation 93.2 % (95-100) L 04/30/24 19:01 Carboxyhemoglobin 1.6 %THgb (0.4-20.1) 04/30/24 19:01 Methemoglobin 0.5 % (0.4-1.5) 04/30/24 19:01 Total Hemoglobin 11.4 g/dL (12-16) L 04/30/24 19:01 O2 Delivery Device Bipap 04/30/24 19:01 FiO2 50.0 % 04/30/24 19:01 Supervisor Boarding ID [email or web address] 04/30/24 19:01 Sodium 135 mmol/L (136-145) L 04/30/24 19:17 Potassium 4.2 mmol/L (3.5-5.1) 04/30/24 19:17 Chloride 95 mmol/L (98-107) L 04/30/24 19:17 Carbon Dioxide 25 mmol/L (22-29) 04/30/24 19:17 Anion Gap 19.2 (5-19) H 04/30/24 19:17 BUN 45 mg/dL (8-23) H 04/30/24 19:17 Creatinine 2.3 mg/dL (0.5-0.9) H 04/30/24 19:17 GFR Calculation Not Reportable 04/30/24 19:17 Glucose 221 mg/dL (65-115) H 04/30/24 19:17 Calculated Osmolality 298 mOsm/kg (285-295) H 04/30/24 19:17 Lactic Acid 2.0 mmol/L (0.5-2.2) 04/30/24 19:17 Calcium 9.3 mg/dL (8.5-10.5) 04/30/24 19:17 Total Bilirubin 0.5 mg/dL (0.15-1.2) 04/30/24 19:17 AST 34 U/L (0-32) H 04/30/24 19:17 ALT 55 U/L (0-33) H 04/30/24 19:17 Alkaline Phosphatase 201 U/L (35-105) H 04/30/24 19:17 Troponin T Baseline 90 ng/L (0-10) H 04/30/24 19:17 Total Protein 7.0 g/dL (6.6-8.7) 04/30/24 19:17 Albumin 3.3 g/dL (3.5-5.2) L 04/30/24 19:17 Globulin 3.7 g/dL (1.3-4.6) 04/30/24 19:17 All radiology interpretation(s) finalized by discharge EKG Data EKG 1: I personally reviewed and interpreted this EKG as follows: EKG Interpretation Date: 04/30/24 EKG interpretation time: 18:51 Interpretation: afib with rvr hr [address] or t wave abnormalities qrs 155 qtc 407 Critical Care Time 2 Critical Care Time: Critical Care Time: Yes Total Critical Care Time: 45 Attestation: The high probability of a clinically significant, sudden or life threatening deterioration of the patient's resp system(s) required my full and direct attention, intervention and personal management. The critical care time is as shown. This time is in addition to time spent performing any reported procedures but includes the following: [x] Data and vital sign review and interpretation [x] Patient assessment, examination and intervention [x] Documentation [x] Medication orders and management Discharge Plan Discharge Admit Provider: Jace Renee Condition: Stable Prescriptions: No Action nitroglycerin [Nitrostat] 0.4 mg tablet, sublingual 0.4 mg SUBLINGUAL Q5M PRN (Reason: Chest Pain) Qty: 30 3RF Rx Instructions: MAX 3 DOSES PER EPISODE levothyroxine [Euthyrox] 150 mcg tablet 150 mcg PO DAILY@06 calcium carbonate [Calcium 600] 600 mg calcium (1,500 mg) tablet 600 mg PO DAILY cholecalciferol (vitamin D3) [Vitamin D3] 25 mcg (1,000 unit) Tablet 1,000 unit PO DAILY pantoprazole 40 mg tablet,delayed release (DR/EC) 40 mg PO BID glucose 4 gram tablet,chewable 4 g PO PRN PRN (Reason: Hypoglycemia) Trelegy Ellipta 200-62.5-25 mcg blister with device 1 inh INHALATION DAILY Qty: 28 0RF insulin lispro [Humalog U-100 Insulin] 100 unit/mL Solution See Rx Instructions .ROUTE .COMPLEX MDD 40 Qty: 10 0RF Rx Instructions: per sliding scale with meals 150-200=2 units 201-250=4 units 251-300=6 units 301-350=8 units 351-400=10 units 401-450=12 units acetaminophen 325 mg Tablet 650 mg PO Q6H PRN (Reason: PAIN OR INCREASED TEMP) amiodarone 200 mg tablet 200 mg PO DAILY meclizine 25 mg tablet 25 mg PO TID PRN (Reason: Nausea And Vomiting) bisacodyl [Dulcolax (bisacodyl)] 10 mg Suppository 10 mg MA DAILY PRN (Reason: if no bm x3 days ) nystatin [Nyamyc] 100,000 unit/gram powder See Rx Instructions .ROUTE .COMPLEX Rx Instructions: as directed every shift as needed (apply between thighs and affected areas twice a day as needed) methotrexate sodium 2.5 mg Tablet 6 mg PO Q7D Hold Instructions: Resume on 05/02/24. Rx Instructions: ON SUNDAY magnesium L-lactate 84 mg tablet extended release 84 mg PO DAILY@08 aspirin 81 mg Tablet,Delayed Release (Dr/Ec) 81 mg PO DAILY Qty: 30 0RF folic acid 1 mg tablet 1 mg PO DAILY melatonin 1 mg tablet 1 mg PO BEDTIME MediHoney (honey) 80 % gel See Rx Instructions .ROUTE .COMPLEX Rx Instructions: twice a day to coccyx; cleanse with NS and gauze, apply medi-honey to wound bed and apply loose ABD (no tape) albuterol sulfate 0.63 mg/3 mL Solution For Nebulization 0.63 mg INHALATION TID PRN (Reason: Shortness Of Breath Or Wheezing) polyethylene glycol 3350 [Miralax] 17 gram Powder In Packet 17 g PO DAILY lactulose 10 gram/15 mL (15 mL) Solution 15 ml PO DAILY pyridoxine (vitamin B6) 500 mg Tablet 500 mg PO DAILY bumetanide 2 mg tablet 2 mg PO DAILY Qty: 90 0RF guaifenesin 400 mg tablet 400 mg PO TID PRN (Reason: congestion) Qty: 30 0RF Klor-Con 10 10 mEq Tablet Extended Release 10 meq PO DAILY Qty: 30 0RF sertraline 100 mg Tablet 100 mg PO BEDTIME carica papaya Tablet,Chewable 4 tab PO TIDWM Rx Instructions: WITH MEALS lidocaine 5 % Adhesive Patch,Medicated 1 patch TOPICAL BID Rx Instructions: leave on most painful area for up to 12 hrs ondansetron 4 mg tablet,disintegrating 4 mg PO Q6H PRN (Reason: Nausea And Vomiting) Coding Level of Care Code ED Clinical Marketing Manager for Dougie Samson
[2024-04-30 19:11] LABS: ABG PCO2 44.2 mmHg (35-45); ABG PH Result 7.37 (7.35-7.45); Arterial Blood Gas Hematocrit 34.9 % (37-47); Base Excess ABG -0.3 mmol/L (-2.0-2.0); Blood Gas Allen Test Pos; Blood Gas Sample Site Radial, left; Blood Gas Sample Type Arterial; Carboxyhemoglobin 1.6 %THgb (0.4-20.1); HCO3 ABG 25.3 mmol/L (22-26); HGB O2 Sat 93.2 % (95-100); Methemoglobin 0.5 % (0.4-1.5); Oxygen Device BIPAP; PO2 ABG 77.4 mmHg (80.0-100.0); PO2 FiO2 Ratio Arterial Blood 154; Total Hemoglobin 11.4 g/dL (12-16)
[2024-04-30] MEDS: dilTIAZem 100 MG in sodium chloride 0.9% (add-van) 100 ML IV (19:20)
[2024-04-30] MEDS: dilTIAZem 5 mg/mL SDV 5 mL 10 MG IVP (19:23)
[2024-04-30] MEDS: amiodarone 150 MG/100 ML PREMIX 400 MG IV (19:39)
[2024-04-30 19:53] LABS: Hematocrit 36.8 % (36-47); Mean Corpuscular HGB Conc 30.7 g/dL (30-55); Mean Corpuscular Hemoglobin 31.4 pg (27-33); Mean Corpuscular Volume 102.2 fl (85-98); Mean Platelet Volume 9.5 fL (7.4-10.4); Platelet Count 241 10^3/cmm (157-399); Red Cell Distribution Width 17.2 % (12.1-15.1); White Blood Count 13.06 10^3/uL (3.29-11.43)
[2024-04-30 20:04] LABS: INR 1.07 (0.8-1.2)
[2024-04-30 20:14] LABS: Troponin(5th) Baseline 90 ng/L (0-10)
[2024-04-30 20:15] LABS: Absolute Eosinophils 0.1 10^3/cmm (0.0-0.7); Absolute Segmented Neutrophil 11.4 10/cmm (1.6-7.1); Band Neutrophils Absolute 0.7 10^3/cmm (0.0-1.2); Eosinophils 1 %; Lymphocytes 1 %; Lymphocytes Absolute 0.1 10^3/cmm (1.2-3.4); Monocytes Absolute 0.3 10^3/cmm (0.1-0.6); Segmented Neutrophils 87 %; Slide Review Slide Review Perform; Total Cells Counted 100 (0-100)
[2024-04-30 20:16] LABS: Anisocytosis 1+; Macrocytosis 1+; Platelet Estimate Normal (Normal)
[2024-04-30 20:23] LABS: Alanine Aminotransferase 55 U/L (0-33); Albumin Level 3.3 g/dL (3.5-5.2); Alkaline Phosphatase 201 U/L (35-105); Anion Gap 19.2 (5-19); Aspartate Amino Transferase 34 U/L (0-32); Blood Urea Nitrogen 45 mg/dL (8-23); Calcium 9.3 mg/dL (8.5-10.5); Carbon Dioxide 25 mmol/L (22-29); Chloride 95 mmol/L (98-107); Globulin 3.7 g/dL (1.3-4.6); Glucose 221 mg/dL (65-115); Osmolality Calculated 298 mOsm/kg (285-295); Potassium 4.2 mmol/L (3.5-5.1); Sodium 135 mmol/L (136-145); Total Bilirubin 0.5 mg/dL (0.15-1.2)
--- NOTE | 2024-04-30 20:52 | P.HP_ITS ---
Providers/Chief Complaint 2 Admitting Physician: Jace Renee MD Primary Care Provider: Donavan Champagne DO Chief Complaint: A FIB, Resp Distress, Covid + History of Present Illness Myesha Parker is a 73 year old female with a past medical history of end-stage renal disease on dialysis, history of atrial fibrillation not on anticoagulation due to history of GI bleed, short of chronic leukocytosis, history of ESBL E. coli UTIs, history of immunocompromise straight on methotrexate, history of COPD, CHF, history of sacral DTI, diastolic CHF, with recent hospitalization for fluid overload, requiring dialysis, who presents [facility] due to shortness of breath, tachypnea, wheezing. Currently patient's on BiPAP 50% FiO2 with nasal flaring intercostal retraction suprasternal retractions, tachypnea, tachycardia, currently in A-fib with RVR on amiodarone, patient's is at bedside. According to patient's patient was diagnosed with COVID about 2 days ago, she did receive dialysis yesterday and they took some amount of fluid off of her, but this evening she started complaining of severe shortness of breath, fatigue, wheezing, currently patient alert to person, to place, not to time she follows commands, is short of breath with a few words, she tells me that the BiPAP has significantly helped her, denies any chest pain, does report palpitations, does report a cough, no fevers, no chills, no nausea, no vomiting no abdominal pain. ? Currently patient is A-fib with RVR, in moderate respiratory distress, we discussed her goals of care, she is a full code, confirmed with patient multiple times, at bedside ? We discussed elective intubation as she is in moderate respiratory distress she is on BiPAP she tells me that she is more comfortable now being on BiPAP, but if her respiratory status does worsen we discussed elective intubation, she is agreeable Review of Systems 2 Const: Reports: fatigue and malaise; Denies: fever(s) Card: Denies: chest pain Resp: Reports: dyspnea GI: Denies: abdominal pain Medications/Allergies Home Medications Medication Instructions Recorded Confirmed Last Taken Type cholecalciferol (vitamin D3) 25 1,000 unit PO DAILY 10/12/19 04/22/24 04/21/24 10:03 History mcg (1,000 unit) tablet (Vitamin D3) nitroglycerin 0.4 mg sublingual 0.4 mg sublingual Q5M PRN Chest 02/08/21 04/22/24 Unknown Rx tablet (Nitrostat) Pain #30 tabs calcium carbonate (Calcium 600) 600 mg PO DAILY 06/27/21 04/22/24 04/21/24 10:03 History levothyroxine 150 mcg tablet 150 mcg PO DAILY@06 06/27/21 04/22/24 04/21/24 04:04 History (Euthyrox) pantoprazole 40 mg tablet,delayed 40 mg PO BID 09/13/21 04/22/24 04/21/24 10:03 History release glucose 4 gram chewable tablet 4 g PO PRN PRN Hypoglycemia 06/17/23 04/22/24 Unknown History fluticasone fur. 200 mcg-umeclid 1 inh inhalation DAILY #28 ea 06/20/23 04/22/24 04/21/24 10:03 Rx 62.5 mcg-vilant 25 mcg inhalat.powder (Trelegy Ellipta) insulin lispro 100 unit/mL See Rx Instructions .Route 08/17/23 04/22/24 04/21/24 15:39 Rx subcutaneous solution (Humalog .COMPLEX #10 mL U-100 Insulin) acetaminophen 325 mg tablet 650 mg PO Q6H PRN PAIN OR 09/30/23 04/22/24 04/21/24 16:51 History INCREASED TEMP amiodarone 200 mg tablet 200 mg PO DAILY 09/30/23 04/22/24 04/21/24 10:03 History bisacodyl 10 mg rectal suppository 10 mg NH DAILY PRN if no bm x3 days 09/30/23 04/22/24 11/22/23 History (Dulcolax (bisacodyl)) meclizine 25 mg tablet 25 mg PO TID PRN Nausea And 09/30/23 04/22/24 04/18/24 16:06 History Vomiting nystatin 100,000 unit/gram topical See Rx Instructions .Route .COMPLEX 09/30/23 04/22/24 Unknown History powder (Nyamyc) magnesium L-lactate 84 mg 84 mg PO DAILY@08 10/12/23 04/22/24 04/21/24 10:03 History tablet,extended release methotrexate sodium 2.5 mg tablet 6 mg PO Q7D 10/12/23 04/22/24 04/19/24 07:36 History aspirin 81 mg tablet,delayed 81 mg PO DAILY #30 tabs 10/19/23 04/22/24 04/21/24 10:03 Rx release folic acid 1 mg tablet 1 mg PO DAILY 01/09/24 04/22/24 04/21/24 10:03 History honey 80 % topical [facility] ([facility] See Rx Instructions .Route .COMPLEX 01/09/24 04/22/24 04/21/24 13:47 History (honey)) melatonin 1 mg tablet 1 mg PO BEDTIME 01/09/24 04/22/24 04/21/24 01:01 History carica papaya 4 tab PO TIDWM 03/17/24 04/22/24 04/21/24 16:45 History lidocaine 5 % topical patch 1 patch topical BID 03/17/24 04/22/24 04/21/24 04:04 History sertraline 100 mg tablet 100 mg PO BEDTIME 03/17/24 04/22/24 04/21/24 01:01 History ondansetron 4 mg disintegrating 4 mg PO Q6H PRN Nausea And Vomiting 03/28/24 04/22/24 04/21/24 16:51 History tablet albuterol sulfate 0.63 mg/3 mL 0.63 mg inhalation TID PRN 04/22/24 04/22/24 04/21/24 13:57 History solution for nebulization Shortness Of Breath Or Wheezing lactulose 10 gram/15 mL (15 mL) 15 ml PO DAILY 04/22/24 04/22/24 04/21/24 14:01 History oral solution polyethylene glycol 3350 17 gram 17 g PO DAILY 04/22/24 04/22/24 04/21/24 10:03 History oral powder packet (Miralax) pyridoxine (vitamin B6) 500 mg 500 mg PO DAILY 04/22/24 04/22/24 04/21/24 10:03 History tablet bumetanide 2 mg tablet 2 mg PO DAILY #90 tabs 04/25/24 Unknown Rx guaifenesin 400 mg tablet 400 mg PO TID PRN congestion #30 04/25/24 Unknown Rx tabs potassium chloride 10 mEq 10 meq PO DAILY #30 tabs 04/25/24 Unknown Rx tablet,extended release (Klor-Con) Allergies Allergy/AdvReac Type Severity Reaction Status Date / Time adhesive tape Allergy rash Verified 04/21/24 23:05 cinnamon Allergy sinus Verified 04/21/24 23:05 codeine Allergy unknown Verified 04/21/24 23:05 cedar Allergy sinus Uncoded 04/21/24 19:30 pine Allergy sinus Uncoded 04/21/24 19:30 pork food Allergy ADR-Nausea Uncoded 04/21/24 19:30 PFSH Acute 2 PFSH: Medical History (Updated 04/30/24 @ 20:57 by Jace Renee MD) NSTEMI (non-ST elevated myocardial infarction) History of cardiovascular stress test 09/2023 History of stroke Diabetes mellitus, type II Myasthenia gravis listed in [facility] records Amber albicans infection 2022 Clostridioides difficile diarrhea 12/18 Inflammatory arthritis Sleep apnea in adult noncompliant with CPAP/BiPAP in outpt setting (machine feels different) Colon polyp Gastric polyposis UGIB (upper gastrointestinal bleed) 2020 Chronic atrial fibrillation not on chronic anticoagulation due to recurrent falls and prior GI bleed Congestive heart failure (CHF) Orthostatic hypotension Chronic post-traumatic stress disorder (PTSD) Major depressive disorder, recurrent episode, moderate with anxious distress Duodenal ulcer due to bacteria 08/16 Coronary artery disease Chronic knee pain Chronic low back pain COVID-14 August 2020 Seronegative rheumatoid arthritis of both hands Osteoarthritis of knees, bilateral Fibromyalgia Lung nodule Unstable angina Urgency incontinence Left renal mass COPD (chronic obstructive pulmonary disease) Oxygen dependent, 3-3.5 L at baseline Hypothyroidism Liver cirrhosis Hyperlipidemia Hypertension Recurrent UTI Surgical History S/P dialysis catheter insertion 07/2023 History of colonoscopy 06/23/22 History of esophagogastroduodenoscopy (EGD) 06/23/22 History of cholecystectomy History of thyroid surgery History of cardiac cath History of hysterectomy History of knee replacement Family History Other CAD (coronary artery disease) Cancer Denies family history of Anesthesia complication Bleeding disorder Social History Smoking and tobacco/nicotine status: former use of tobacco/nicotine Quit status (tobacco/nicotine): has quit using Year quit tobacco: 2005 Second hand smoke exposure: No Alcohol intake: never Substance/Drug Use: never Adopted: No Caregiver/support person: No Lives independently: No Household members: spouse Housing: [facility] Marital status: Current occupational status: retired Current gender identity: Female Vitals/I&O/Wt Last Vital Signs Temp 98.5 F 04/30/24 18:47 Pulse 125 H 04/30/24 20:19 Resp 29 H 04/30/24 20:19 BP 122/82 04/30/24 20:19 Pulse Ox 97 04/30/24 20:19 O2 Del Method BiPAP 04/30/24 20:19 O2 Flow Rate 4 04/30/24 20:07 FiO2 50 04/30/24 19:00 04/30/24 04/30/24 04/30/24 06:59 14:59 22:59 Intake Total 101.167 / 101.167 Balance 101.167 / 101.167 Weight last 48 hrs Weight 86.183 kg Physical Exam 2 Const: COMMON NORMALS: patient oriented x3 GENERAL APPEARANCE: ill appearing and frail appearing ORIENTATION/CONSCIOUSNESS: Yes awake, Yes oriented to person and Yes oriented to place HENMT: COMMON NORMALS: normocephalic HEAD & SCALP: normocephalic Eye: COMMON NORMALS: Equal, round and reactive pupils present and EOMs intact bilaterally Resp: EFFORT & INSPECTION: Yes tachypneic, Yes respiratory distress, Yes Actively coughing, Yes retractions and Yes uses accessory muscles A USCULTATION: rales and wheezes Cardio: COMMON NORMALS: regular rate, regular rhythm, S1 normal heart sound present and S2 normal heart sound present RATE: tachycardic RHYTHM: a bnormal rhythm HEART SOUNDS: S1 normal heart sound present and S2 normal heart sound present GI: COMMON NORMALS: Normal to inspection, nondistended, normoactive bowel sounds present, Soft to palpation and non-tender Extremity: COMMON NORMALS: no pedal edema Neuro: COMMON NORMALS: patient oriented x3 Psych: COMMON NORMALS: mental status grossly normal Sepsis: Is patient septic: Yes Focused sepsis exam performed: Yes F ocused sepsis exam: DP PT pulses palpable, cap refill greater than 2 seconds, no mottling Date exam was performed: 04/30/24 Time exam was performed: 20:55 Data 04/30/24 19:17 04/30/24 19:17 Micro: Microbiology 04/30/24 20:11 Blood Culture - Preliminary Blood SPECIMEN COLLECTED 04/30/24 19:17 Blood Culture - Preliminary Blood SPECIMEN COLLECTED A&P Assessment and plan (1) Acute hypoxic respiratory failure: (2) Pneumonia due to COVID-19 virus: (3) COPD (chronic obstructive pulmonary disease): (4) COPD exacerbation: (5) Acute exacerbation of CHF (congestive heart failure): Qualifiers: Heart failure type: combined systolic and diastolic Qualified Code(s): I50.43 - Acute on chronic combined systolic (congestive) and diastolic (congestive) heart failure (6) Acute respiratory distress: (7) NSTEMI (non-ST elevated myocardial infarction): Plan Acute on chronic hypoxic respiratory failure -with evidence of respiratory distress, 50% BiPAP, appears to be in respiratory distress nasal fraying intercostal retraction suprasternal retractions, ? Secondary to COVID-19 pneumonia Has concerns for second bacterial pneumonia given history of immunocompromise state on methotrexate ? COPD exacerbation CHF exacerbation ? Plan ? Monitor in ICU closely ? Continue BiPAP ? Patient is low threshold for intubation ? Start remdesivir, 200 mg once followed by 100 mg IV daily ? Decadron 6 mg IV push every 24 hours -History of MRSA positive sputum cultures, history of ESBL infections, start broad-spectrum antibiotic therapy vancomycin, meropenem ? End-stage renal disease on dialysis, awaiting BNP, will need to discuss with nephrology early in the morning about dialyzing early in the morning ? Follow blood cultures ? Monitor respiratory status closely ? Full code - Lovenox for DVT prophylaxis - Prognosis guarded, status critical Atrial fibrillation with rapid ventricular response Continue with amiodarone drip Type 2 diabetes mellitus, moderate -dose sliding scale End-stage renal disease on dialysis Diastolic CHF, ? Received dialysis yesterday, she does report that they took some amount of fluid off of her NSTEMI ? Serial EKGs consult troponins, telemetry monitoring Attestations 2 Medical Necessity Statement*: Patient requires hospitalization, inpatient, greater than 2 midnights, for acute hypoxic respiratory failure secondary to COVID-19 pneumonia, COPD, CHF, concerns for secondary bacterial pneumonia, acute respiratory distress, required ICU level care Coding Level of Care Code Critical Care >/= 30 minutes Critical care time (in minutes): 45 The high probability of a clinically significant, sudden or life threatening deterioration, as referenced in this documentation, required my full and direct attention, intervention and personal management. The critical care time shown is in addition to time spent performing any reported separately billable procedures and includes the following: [x] Data and vital sign review and interpretation [x ] Patient assessment, examination and intervention [x] Medication orders and management [x] Patient/Family updates as able [x] Care Coordination and Documentation. Diagnoses Acute hypoxic respiratory failure J96.01 Pneumonia due to COVID-19 virus U07.1; J12.82 COPD (chronic obstructive pulmonary disease) J44.9 COPD exacerbation J44.1 Acute on chronic combined systolic and diastolic congestive heart failure I50.43 Heart failure type: combined systolic and diastolic Acute respiratory distress R06.03 NSTEMI (non-ST elevated myocardial infarction) I21.4
--- NOTE | 2024-04-30 20:53 | ECG_ITS ---
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 Measurements Intervals [place] Rate: 109 P: 0 GA: 0 QRS: 258 QRSD: 171 T: 70 QT: 327 QTc: 442 Interpretive Statements ATRIAL FIBRILLATION WITH RAPID VENTRICULAR RESPONSE RIGHT AXIS DEVIATION [QRS AXIS > 100] RIGHT BUNDLE BRANCH BLOCK [120+ ms QRS DURATION, UPRIGHT V1, 40+ ms S IN I/aVL/V4/V5/V6] POSSIBLE ANTERIOR MYOCARDIAL INFARCTION , PROBABLY OLD [30 ms Q WAVE IN V3/V4, OR R < 0.2 mV IN V4] Compared to ECG 04/30/2024 18:51:43 Right-axis deviation now present Myocardial infarct finding still present Electronically Signed On 05-01-2024 14:57:22 CDT by Victoriano White M.D. [id number]
[2024-04-30 21:00] LABS: NT Pro B Type Natriuretic Pept 39071 pg/mL (0-450)
--- NOTE | 2024-04-30 21:05 | PHA.VACGOAL ---
Vancomycin Goal - Goal Vancomycin Goal:: 10-15 mg/L Vancomycin Indication:: Pneumonia - Therapy Current therapy:: Meropenem Day of therpy:: Day []of [] . Actual body weight (kg): 190 lb - Data Labs: WBC 13.06 10^3/uL (3.29-11.43) H 04/30/24 19:17 RBC 3.60 10^6/uL (3.85-5.65) L 04/30/24 19:17 Hgb 11.30 g/dL (11.27-16.99) 04/30/24 19:17 Hct 36.8 % (36-47) 04/30/24 19:17 MCV 102.2 fl (85-98) H 04/30/24 19:17 MCH 31.4 pg (27-33) 04/30/24 19:17 MCHC 30.7 g/dL (30-55) 04/30/24 19:17 RDW 17.2 % (12.1-15.1) H 04/30/24 19:17 Sodium 135 mmol/L (136-145) L 04/30/24 19:17 Potassium 4.2 mmol/L (3.5-5.1) 04/30/24 19:17 Chloride 95 mmol/L (98-107) L 04/30/24 19:17 Carbon Dioxide 25 mmol/L (22-29) 04/30/24 19:17 Anion Gap 19.2 (5-19) H 04/30/24 19:17 BUN 45 mg/dL (8-23) H 04/30/24 19:17 Creatinine 2.3 mg/dL (0.5-0.9) H 04/30/24 19:17 GFR Calculation Not Reportable 04/30/24 19:17 Treatment plan:: new consult Regimen:: 1250MG Q36H Additional Comments:: PT WILL BE STARTING DIALYSIS; PHARMACY WILL MONITOR DAILY
[2024-04-30 21:11] LABS: D Dimer 8.38 ug/mLFEU (0-0.59)
[2024-04-30 21:16] LABS: Procalcitonin 2.24 ng/mL (0-0.5); Thyroid Stimulating Hormone 1.71 uIU/mL (0.27-4.20)
[2024-04-30 22:06] LABS: Estmated Average Glucose 117; Hemoglobin A1C 5.7 % (4.0-6.0)
[2024-04-30] MEDS: pantoprazole 40 mg SDV IVP (22:42)
[2024-04-30] MEDS: meropenem 500 mg SDV IVP (22:42)
[2024-04-30] MEDS: enoxaparin 40 mg/0.4 mL Syringe SUBCUT (22:43)
[2024-04-30] MEDS: remdesivir 200 MG in sodium chloride 0.9% (100 ml) 60 ML 100 MG IV (22:43)
[2024-04-30] MEDS: sertraline 100 mg Tablet PO (22:43)
[2024-04-30] MEDS: vancomycin 1,250 MG/250 ML PIGGYBACK 166.67 MG IV (22:46)
[2024-04-30] MEDS: budesonide 0.5 mg/2 mL Neb INHALATION (23:12)
[2024-04-30 23:46] LABS: Troponin 5 2HR 90.53 ng/L (0-10); Troponin 5 2HR Delta 0.53 ABS# (0-10)
[2024-05-01] VITALS (101 sets, daily range): BP systolic 87–239; BP diastolic 43–206; PULSE 83–113; RESP 12–30; TEMP 36.3–36.9; O2SAT 82–100
--- NOTE | 2024-05-01 00:51 | ECG_ITS ---
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 Measurements Intervals [place] Rate: 112 P: 0 AL: 0 QRS: 269 QRSD: 182 T: 90 QT: 362 QTc: 494 Interpretive Statements ATRIAL FIBRILLATION WITH RAPID VENTRICULAR RESPONSE RIGHT AXIS DEVIATION [QRS AXIS > 100] RIGHT BUNDLE BRANCH BLOCK [120+ ms QRS DURATION, UPRIGHT V1, 40+ ms S IN I/aVL/V4/V5/V6] POSSIBLE ANTERIOR MYOCARDIAL INFARCTION , PROBABLY OLD [30 ms Q WAVE IN V3/V4, OR R < 0.2 mV IN V4] Compared to ECG 04/30/2024 20:53:12 No significant changes Electronically Signed On 05-01-2024 14:56:22 CDT by Victoriano White M.D. [id number]
[2024-05-01 02:03] LABS: Troponin 5 6HR 85.72 ng/L (0-10); Troponin 5 6HR Delta -4.28 ng/L (0-12)
[2024-05-01 04:44] LABS: Basophils % 0.4 %; Hematocrit 34.3 % (36-47); Lymphocytes # 0.2 10^3/uL (0.8-4.8); Lymphocytes % 1.6 %; Mean Corpuscular HGB Conc 29.7 g/dL (30-55); Mean Corpuscular Hemoglobin 31.3 pg (27-33); Mean Corpuscular Volume 105.2 fl (85-98); Mean Platelet Volume 10.5 fL (7.4-10.4); Monocytes # 0.4 10^3/uL (0.2-0.9); Monocytes % 3.9 %; Neutrophils # 10.03 10^3/uL (1.8-7.7); Neutrophils % 89.7 %; Nucleated Red Blood Cells % 0 %; Platelet Count 167 10^3/cmm (157-399); Red Blood Count 3.26 10^6/uL (3.85-5.65); Red Cell Distribution Width 17.5 % (12.1-15.1); White Blood Count 11.18 10^3/uL (3.29-11.43)
[2024-05-01] MEDS: levothyroxine 150 mcg Tablet PO (05:05)
[2024-05-01] MEDS: dexamethasone 10 mg/mL INJ 6 MG IVP (05:05)
[2024-05-01 05:18] LABS: Blood Urea Nitrogen 47 mg/dL (8-23); Calcium 8.5 mg/dL (8.5-10.5); Carbon Dioxide 19 mmol/L (22-29); Chloride 100 mmol/L (98-107); Creatinine Clr Calc Pharmacy 24.6871; Glucose 265 mg/dL (65-115); Magnesium 1.7 mg/dL (1.7-2.3); Osmolality Calculated 304 mOsm/kg (285-295); Sodium 136 mmol/L (136-145)
[2024-05-01 05:27] LABS: Anion Gap 21.7 (5-19); Potassium 4.7 mmol/L (3.5-5.1)
--- NOTE | 2024-05-01 06:39 | USCV_ITS ---
Myesha Parker Age: 73 Gender: F : 1950 Exam Date: 05/01/2024 08:23 Ordering Phys: Jace Renee MD Technologist: Exam Location: [facility] Indication: bed stasis PROCEDURES: The venous duplex Doppler examination of both lower extremities was performed in the standard fashion. The following venous structures were evaluated: common femoral vein, profunda vein, proximal portion of the greater saphenous vein, superficial femoral vein, and the popliteal vein. FINDINGS: Normal 2-D Doppler and augmentation and compressibility throughout the lower extremity venous structures. Additional imaging through the proximal calf veins also reveals no thrombus. Limited evaluation of the greater saphenous vein is patent with no thrombus. Limited evaluation . CONCLUSIONS No DVT bilateral lower extremities. Dr. Janny Borges DO (Electronically Signed) Final Date: 01 May 2024 13:19 S
--- NOTE | 2024-05-01 06:39 | CTR_ITS ---
PROCEDURE INFORMATION: Exam: CTA Chest With Contrast Exam date and time: 05/01/2024 4:24 PM Age: 73 years old Clinical indication: Other: Resp failure; Additional info: Resp failure, elevated d dimer, covid TECHNIQUE: Imaging protocol: Computed tomographic angiography of the chest with contrast. Exam focused on the arteries. 3D rendering (Not supervised by radiologist): MIP and/or 3D reconstructed images were created by the technologist. Radiation optimization: All CT scans at this facility use at least one of these dose optimization techniques: automated exposure control; mA and/or kV adjustment per patient size (includes targeted exams where dose is matched to clinical indication); or iterative reconstruction. Contrast material: OMNI 350; Contrast volume: 70 ml; Contrast route: INTRAVENOUS (IV); COMPARISON: CT angio chest PE protcl [id number] 02/15/2024 2:15 PM RADIATION DOSE METRICS: Total DLP (mGy-cm): 468 FINDINGS: Tubes, catheters and devices: There is a right internal jugular central venous catheter appropriately positioned with the tip in the lower SVC near the cavoatrial junction. Pulmonary arteries: The pulmonary arteries are adequately opacified for evaluation to the subsegmental level. There is no filling defect to suggest embolism. Aorta: There is moderate aortic atherosclerotic disease. Lungs: Moderate volume loss in the right lower lobe. Mild volume loss in the left lower lobe. Ill-defined coarse reticular opacity in the right mid to lower lung. Dense consolidation and volume loss in the posterior and lateral basal segments of the left lower lobe consistent with segmental atelectasis. Pleural spaces: Mildly loculated moderate size right pleural effusion is decreased in size since 03/30/2024. Small simple dependent left pleural effusion is decreased in size since 03/30/2024. No pneumothorax. Heart: There is mild cardiac enlargement. There is no pericardial effusion. Lymph nodes: There is no mediastinal or hilar lymphadenopathy. Bones/joints: There are multiple healed bilateral rib fractures anteriorly. No acute osseous findings. Soft tissues: The extrathoracic soft tissues are unremarkable. CT/CT angio chest PE protcl [id number] IMPRESSION: 1. No pulmonary embolism. 2. Decreased bilateral pleural effusions since 03/30/2024. 3. Stable extensive atelectasis in the lower lungs bilaterally, with slightly increased aeration of the right lung since prior CT. Superimposed infection cannot be excluded.
[2024-05-01 07:36] LABS: Glucose Point of Care 214 mg/dL (70-110)
[2024-05-01] MEDS: budesonide 0.5 mg/2 mL Neb INHALATION ×2 (07:56→20:36)
[2024-05-01] MEDS: ipratropium-albuterol 3 mL Neb INHALATION ×4 (07:56→20:36)
[2024-05-01] MEDS: insulin lispro 100 unit/1 mL SUBCUT ×2 (08:25→18:50)
[2024-05-01] MEDS: meropenem 500 mg SDV IVP ×2 (08:26→20:44)
[2024-05-01] MEDS: polyethylene glycol 3350 Pkt 17 gm PO (08:26)
[2024-05-01] MEDS: aspirin 81 mg EC Tablet PO (08:26)
[2024-05-01] MEDS: magnesium lactate 84 mg Tablet PO (08:26)
[2024-05-01] MEDS: folic acid 1 mg Tablet PO (08:26)
--- NOTE | 2024-05-01 08:45 | P.CONIM_ITS ---
Providers/Reason For Consult 2 Consulting Physician/Specialty*: rissa fatima md / telenephrology Reason for Consult*: ESRD care Requesting Physician: DR Jace Renee and Dr Roc Browne Attending Physician: Bayron Browne MD Primary Care Provider: Donavan Champagne DO History of Present Illness History of Present Illness Myesha Parker is a 73 year old female history of ESRD on dialysis Sunday and Sunday, history of A-fib, history of GI bleed, ESBL with E. coli UTIs. Patient has history of immunocompromise due to being on methotrexate. Patient has history of heart failure, COPD decubiti ulcer. Her heart failure has preserved EF. Patient has had multiple hospitalizations with volume overload and shortness of breath. The patient also has issues of A-fib with rapid ventricular rate and has required amiodarone. Patient is admitted now as she states that her recently was diagnosed with COVID 19 pneumonia. And she now has severe shortness of breath cough wheezing and dyspnea and required BiPAP. She was also found to have A-fib with rapid ventricular response. Patient was admitted to the hospital for evaluation of her shortness of breath and for dialysis. Review of Systems 2 Narrative: Weak, short of breath, tachycardia, palpitations, nausea, shortness of breath, hungry, mild edema. Cough. Dyspnea on exertion orthopnea. Rest review of systems within normal limits Medications/Allergies Home Medications Medication Instructions Recorded Confirmed Last Taken Type cholecalciferol (vitamin D3) 25 1,000 unit PO DAILY 10/12/19 05/01/24 04/21/24 10:03 History mcg (1,000 unit) tablet (Vitamin D3) nitroglycerin 0.4 mg sublingual 0.4 mg sublingual Q5M PRN Chest 02/08/21 05/01/24 Unknown Rx tablet (Nitrostat) Pain #30 tabs calcium carbonate (Calcium 600) 600 mg PO DAILY 06/27/21 05/01/24 04/21/24 10:03 History levothyroxine 150 mcg tablet 150 mcg PO DAILY@06 06/27/21 05/01/24 04/21/24 04:04 History (Euthyrox) pantoprazole 40 mg tablet,delayed 40 mg PO BID 09/13/21 05/01/24 04/21/24 10:03 History release glucose 4 gram chewable tablet 4 g PO PRN PRN Hypoglycemia 06/17/23 05/01/24 Unknown History fluticasone fur. 200 mcg-umeclid 1 inh inhalation DAILY #28 ea 06/20/23 05/01/24 04/21/24 10:03 Rx 62.5 mcg-vilant 25 mcg inhalat.powder (Trelegy Ellipta) insulin lispro 100 unit/mL See Rx Instructions .Route 08/17/23 05/01/24 04/21/24 15:39 Rx subcutaneous solution (Humalog .COMPLEX #10 mL U-100 Insulin) bisacodyl 10 mg rectal suppository 10 mg MS DAILY PRN if no bm x3 days 09/30/23 05/01/24 11/22/23 History (Dulcolax (bisacodyl)) meclizine 25 mg tablet 25 mg PO TID PRN Nausea And 09/30/23 05/01/24 04/18/24 16:06 History Vomiting nystatin 100,000 unit/gram topical See Rx Instructions .Route 09/30/23 05/01/24 Unknown History powder ([facility]) .COMPLEX PRN Rash magnesium L-lactate 84 mg 84 mg PO DAILY@08 10/12/23 05/01/24 04/21/24 10:03 History tablet,extended release methotrexate sodium 2.5 mg tablet 6 mg PO Q7D 10/12/23 05/01/24 04/19/24 07:36 History aspirin 81 mg tablet,delayed 81 mg PO DAILY #30 tabs 10/19/23 05/01/24 04/21/24 10:03 Rx release folic acid 1 mg tablet 1 mg PO DAILY 01/09/24 05/01/24 04/21/24 10:03 History melatonin 1 mg tablet 1 mg PO BEDTIME 01/09/24 05/01/24 04/21/24 01:01 History lidocaine 5 % topical patch 1 patch topical BID 03/17/24 05/01/24 04/21/24 04:04 History sertraline 100 mg tablet 100 mg PO BEDTIME 03/17/24 05/01/24 04/21/24 01:01 History ondansetron 4 mg disintegrating 4 mg PO Q6H PRN Nausea And Vomiting 03/28/24 05/01/24 04/21/24 16:51 History tablet albuterol sulfate 0.63 mg/3 mL 0.63 mg inhalation TID PRN 04/22/24 05/01/24 04/21/24 13:57 History solution for nebulization Shortness Of Breath Or Wheezing lactulose 10 gram/15 mL (15 mL) 15 ml PO DAILY 04/22/24 05/01/24 04/21/24 14:01 History oral solution polyethylene glycol 3350 17 gram 17 g PO DAILY 04/22/24 05/01/24 04/21/24 10:03 History oral powder packet (Miralax) pyridoxine (vitamin B6) 500 mg 500 mg PO DAILY 04/22/24 05/01/24 04/21/24 10:03 History tablet bumetanide 2 mg tablet 2 mg PO DAILY #90 tabs 04/25/24 05/01/24 Unknown Rx guaifenesin 400 mg tablet 400 mg PO TID PRN congestion #30 04/25/24 05/01/24 Unknown Rx tabs potassium chloride 10 mEq 10 meq PO DAILY #30 tabs 04/25/24 05/01/24 Unknown Rx tablet,extended release (Klor-Con) amiodarone 200 mg tablet 200 mg PO DAILY 05/01/24 05/01/24 Unknown History carica papaya 4 tab PO TIDWM 05/01/24 05/01/24 Unknown History menthol 0.44 %-zinc oxide 20.6 % 1 applic topical BID PRN Bed sore 05/01/24 05/01/24 Unknown History topical ointment (Calmoseptine) midodrine 10 mg tablet 10 mg PO TID 05/01/24 05/01/24 Unknown History Allergies Allergy/AdvReac Type Severity Reaction Status Date / Time adhesive tape Allergy rash Verified 04/21/24 23:05 cinnamon Allergy sinus Verified 04/21/24 23:05 codeine Allergy unknown Verified 04/21/24 23:05 cedar Allergy sinus Uncoded 04/21/24 19:30 pine Allergy sinus Uncoded 04/21/24 19:30 pork food Allergy ADR-Nausea Uncoded 04/21/24 19:30 Current Medications Generic Name Dose Route Start Last Admin Trade Name Freq PRN Reason Stop Dose Admin Albuterol/Ipratropium 3 ml 05/01/24 08:00 05/01/24 07:56 Ipratropium-Albuterol 3 Ml Neb INHALATION 3 ml QID.RESPIRATORY JOCE Administration Aspirin 81 mg 05/01/24 09:00 05/01/24 08:26 Aspirin 81 Mg Ec Tablet PO 81 mg DAILY JOCE Administration Budesonide 0.5 mg 04/30/24 21:00 05/01/24 07:56 Budesonide 0.5 Mg/2 Ml Neb INHALATION 0.5 mg BID.RESPIRATORY JOCE Administration Dexamethasone 6 mg 05/01/24 06:00 05/01/24 05:05 Dexamethasone 10 Mg/Ml Inj IVP 6 mg Q24H JOCE Administration Folic Acid 1 mg 05/01/24 09:00 05/01/24 08:26 Folic Acid 1 Mg Tablet PO 1 mg DAILY JOCE Administration Amiodarone HCl/Dextrose 360 mg in 200 mls @ 0 mls/hr 04/30/24 19:33 05/01/24 02:14 Nexterone IV 0.5 mg/min .Q0M JOCE 16.67 mls/hr Administration Protocol Per Protocol Vancomycin HCl 1,250 mg in 250 mls @ 166.667 mls/hr 04/30/24 21:00 05/01/24 00:27 Vancocin IV Infused Q36H JOCE Infusion Insulin Human Lispro 0 unit 05/01/24 08:00 05/01/24 08:25 Insulin Lispro 100 Unit/1 Ml SUBCUT 4 unit TIDWM JOCE Administration Protocol Levothyroxine Sodium 150 mcg 05/01/24 06:00 05/01/24 05:05 Levothyroxine 150 Mcg Tablet PO 150 mcg DAILY@06 JOCE Administration Magnesium Lactate 84 mg 05/01/24 08:00 05/01/24 08:26 Magnesium Lactate 84 Mg Tablet PO 84 mg DAILY@08 JOCE Administration Meropenem 500 mg 04/30/24 21:00 05/01/24 08:26 Meropenem 500 Mg Sdv IVP 500 mg Q12H JOCE Administration Protocol Pantoprazole Sodium 40 mg 04/30/24 21:00 04/30/24 22:42 Pantoprazole 40 Mg Sdv IVP 40 mg Q24H JOCE Administration Polyethylene Glycol 17 gm 05/01/24 09:00 05/01/24 08:26 Polyethylene Glycol 3350 Pkt 17 Gm PO 17 gm DAILY JOCE Administration Sertraline HCl 100 mg 04/30/24 21:31 04/30/24 22:43 Sertraline 100 Mg Tablet PO 100 mg BEDTIME JOCE Administration PFSH Acute 2 PFSH: Medical History (Updated 04/30/24 @ 20:57 by Jace Renee MD) NSTEMI (non-ST elevated myocardial infarction) History of cardiovascular stress test 09/2023 History of stroke Diabetes mellitus, type II Myasthenia gravis listed in [facility] records Amber albicans infection 2022 Clostridioides difficile diarrhea 12/18 Inflammatory arthritis Sleep apnea in adult noncompliant with CPAP/BiPAP in outpt setting (machine feels different) Colon polyp Gastric polyposis UGIB (upper gastrointestinal bleed) 2020 Chronic atrial fibrillation not on chronic anticoagulation due to recurrent falls and prior GI bleed Congestive heart failure (CHF) Orthostatic hypotension Chronic post-traumatic stress disorder (PTSD) Major depressive disorder, recurrent episode, moderate with anxious distress Duodenal ulcer due to bacteria 08/16 Coronary artery disease Chronic knee pain Chronic low back pain COVID-14 August 2020 Seronegative rheumatoid arthritis of both hands Osteoarthritis of knees, bilateral Fibromyalgia Lung nodule Unstable angina Urgency incontinence Left renal mass COPD (chronic obstructive pulmonary disease) Oxygen dependent, 3-3.5 L at baseline Hypothyroidism Liver cirrhosis Hyperlipidemia Hypertension Recurrent UTI Surgical History S/P dialysis catheter insertion 07/2023 History of colonoscopy 06/23/22 History of esophagogastroduodenoscopy (EGD) 06/23/22 History of cholecystectomy History of thyroid surgery History of cardiac cath History of hysterectomy History of knee replacement Family History Other CAD (coronary artery disease) Cancer Denies family history of Anesthesia complication Bleeding disorder Social History Smoking and tobacco/nicotine status: former use of tobacco/nicotine Quit status (tobacco/nicotine): has quit using Year quit tobacco: 2005 Second hand smoke exposure: No Alcohol intake: never Substance/Drug Use: never Adopted: No Caregiver/support person: No Lives independently: No Household members: spouse Housing: [facility] Marital status: Current occupational status: retired Current gender identity: Female Vitals/I&O/Wt Last Vital Signs Temp 98.2 F 05/01/24 04:00 Pulse 96 05/01/24 07:59 Resp 23 H 05/01/24 07:56 BP 105/78 05/01/24 04:00 Pulse Ox 99 05/01/24 07:59 O2 Del Method BiPAP 05/01/24 07:56 O2 Flow Rate 4 04/30/24 20:07 FiO2 40 05/01/24 07:59 04/30/24 05/01/24 05/01/24 22:59 06:59 14:59 Intake Total 101.167 / 101.167 580 / 681.167 Balance 101.167 / 101.167 580 / 681.167 Weight last 48 hrs Weight 90.3 kg Weight 90.3 kg Weight 86.183 kg Physical Exam 2 Narrative: Obese comfortable in bed, using nasal cannula O2. Vital signs noted. HEENT normocephalic atraumatic. Neck is supple. Lungs dull bases some wheezes. Heart irregular with systolic murmur. Abdomen is soft positive bowel sounds. Extremities 1+ edema. Dialysis access right anterior chest wall permacath. Neuro awake alert oriented x 3. Patient was seen and examined using A/V equipment and nurse examined her. Data 05/01/24 04:25 05/01/24 04:25 Micro: Microbiology 04/30/24 20:11 Blood Culture - Preliminary Blood SPECIMEN COLLECTED 04/30/24 19:17 Blood Culture - Preliminary Blood SPECIMEN COLLECTED A&P Assessment and plan (1) End stage renal disease on dialysis: 73-year-old lady obesity, COPD, pneumonia, heart failure preserved EF, diabetes mellitus. 1. Chest x-ray reviewed small right pleural effusion. I believe her shortness of breath may be more viral in origin. 2. ESRD will perform dialysis today for 3 and half hours on a 2K bath. An attempt to remove 2 L. 3. Diabetic control. 4. Patient has a mild leukocytosis white cell count was 13 is improved to 11. 5. Mild anemia hemoglobin of 10 is stable for her. Mild drop in platelets to 167 6. Troponin of 90.5 7. TSH of 1.7 Medications reviewed currently patient on meropenem and remdesivir. Patient seen and examined using audiovisual equipment and the nurse examined the patient. Consent for hemodialysis obtained from the patient. Consent for telemedicine visit obtained from the patient. Plan Antibiotics, antiviral and dialysis and monitor Consult Attestations 2 Medical Necessity Statement: Shortness of breath, end-stage renal disease, COVID-19 Time Spent in Patient Care: Greater than 35 minutes (>than 50% of time spent in counselling and/or direct pt care on unit) . Coding Level of Care Code Acute Code for Chg Fwd Diagnoses End stage renal disease on dialysis N18.6; Z99.2
--- NOTE | 2024-05-01 09:24 | P.PN_ITS ---
Subjective 2 Subjective: Myesha was on BiPAP when I saw her this morning. She woke up, can answer few questions but it was hard to understand. History and physical was reviewed. Came in with concerns of respiratory failure, positive COVID, A-fib with RVR. Medications: Reviewed: Yes Vitals/I&O/Wt Last Vital Signs Temp 98.2 F 05/01/24 04:00 Pulse 96 05/01/24 07:59 Resp 23 H 05/01/24 07:56 BP 105/78 05/01/24 04:00 Pulse Ox 99 05/01/24 07:59 O2 Del Method BiPAP 05/01/24 07:56 O2 Flow Rate 4 04/30/24 20:07 FiO2 40 05/01/24 07:59 04/30/24 05/01/24 05/01/24 22:59 06:59 14:59 Intake Total 101.167 / 101.167 580 / 681.167 Balance 101.167 / 101.167 580 / 681.167 Weight last 48 hrs Weight 90.3 kg Weight 90.3 kg Weight 86.183 kg Physical Exam 2 Narrative: General Exam is a white female, on BiPAP HEENT: Atraumatic normocephalic, oropharynx clear Neck is supple no lymphadenopathy thyromegaly Cardiovascular irregular, irregular with currently controlled rate. Right chest with dialysis catheter Lungs clear Abdomen is soft nontender positive bowel sounds Extremities no cyanosis clubbing edema Data 05/01/24 04:25 05/01/24 04:25 Micro: Microbiology 04/30/24 20:11 Blood Culture - Preliminary Blood SPECIMEN COLLECTED 04/30/24 19:17 Blood Culture - Preliminary Blood SPECIMEN COLLECTED A&P Assessment and plan (1) Acute hypoxic respiratory failure: Patient presents with acute hypoxic respiratory failure This is likely secondary to COVID-19 pneumonia Wean off BiPAP as tolerated CTA and venous duplex have been ordered. Will await. If able to stay off BiPAP for an extended period of time, transfer out of ICU. (2) Pneumonia due to COVID-19 virus: Remdesivir Dexamethasone Wean off BiPAP as tolerated Note that she is on 3 to 4 L of oxygen at baseline Hold methotrexate Concern of superimposed bacterial infection. Currently on vancomycin and meropenem. Await cultures, CTA (3) COPD exacerbation: Budesonide DuoNeb every 6 hours IV dexamethasone (4) Elevated troponin: Secondary to acute illness with COVID, end-stage renal disease (5) End stage renal disease on dialysis: Nephrology consultation for hemodialysis (6) Chronic atrial fibrillation: Atrial fibrillation with rapid ventricular rate on arrival Likely secondary to acute illness Wean off amiodarone, placed back on her home amiodarone dose. Increase to 200 mg twice daily currently Plan Other medical problems as outlined in past medical history Full code currently Changed to heparin for DVT prophylaxis from Lovenox Attestations 2 Medical Necessity Statement*: Needs continued hospitalization for IV remdesivir, dexamethasone secondary respiratory failure from COVID-19 pneumonia Diagnoses Acute hypoxic respiratory failure J96.01 Pneumonia due to COVID-19 virus U07.1; J12.82 COPD exacerbation J44.1 Elevated troponin R77.8 End stage renal disease on dialysis N18.6; Z99.2 Chronic atrial fibrillation I48.20 Time Spent (min) 34
[2024-05-01] MEDS: albumin 12.5 GM/50 ML VIAL IV (10:49)
[2024-05-01] MEDS: heparin, porcine 1,000 unit/mL INJ 10 mL 1000 UNIT IV (10:49)
[2024-05-01] MEDS: midodrine 5 mg TABLET 10 MG PO ×3 (10:50→20:43)
[2024-05-01] MEDS: amiodarone 200 mg Tablet PO ×2 (10:51→18:47)
[2024-05-01 11:38] LABS: Glucose Point of Care 127 mg/dL (70-110)
[2024-05-01] MEDS: acetaminophen 325 mg Tablet 650 MG PO ×2 (14:53→21:34)
--- NOTE | 2024-05-01 16:07 | ECG_ITS ---
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 Measurements Intervals [place] Rate: 104 P: 0 [place]: 0 QRS: 266 QRSD: 172 T: 85 QT: 441 QTc: 582 Interpretive Statements ATRIAL FIBRILLATION WITH RAPID VENTRICULAR RESPONSE RIGHT AXIS DEVIATION [QRS AXIS > 100] RIGHT BUNDLE BRANCH BLOCK [120+ ms QRS DURATION, UPRIGHT V1, 40+ ms S IN I/aVL/V4/V5/V6] MODERATE T-WAVE ABNORMALITY, CONSIDER LATERAL ISCHEMIA [-0.1+ mV T-WAVE IN I/aVL/V5/V6] Compared to ECG 05/01/2024 01:07:39 T-wave abnormality now present Possible ischemia now present Myocardial infarct finding no longer present Electronically Signed On 05-01-2024 18:04:40 CDT by Victoriano White M.D. [id number]
[2024-05-01] MEDS: iohexol 350 mg/mL 500 mL Btl (per mL) IV (16:27)
[2024-05-01 16:38] LABS: Hepatitis B Surface AB < 3.5 (11.5-1000); Hepatitis B Surface Antigen Non-Reactive (Nonreactive); Hepatitis C Virus Antibody Non-Reactive (Nonreactive)
[2024-05-01] MEDS: heparin 5,000 unit/mL INJ 1 mL 5000 UNIT SUBCUT (18:47)
[2024-05-01] MEDS: remdesivir 100 MG in sodium chloride 0.9% (100 ml) 80 ML IV (18:47)
[2024-05-01 19:18] LABS: Glucose Point of Care 151 mg/dL (70-110)
[2024-05-01] MEDS: sertraline 100 mg Tablet PO (20:43)
[2024-05-01] MEDS: pantoprazole 40 mg SDV IVP (20:44)
[2024-05-01 21:55] LABS: Glucose Point of Care 152 mg/dL (70-110)
[2024-05-02] VITALS (31 sets, daily range): BP systolic 82–138; BP diastolic 36–91; PULSE 90–118; RESP 12–32; TEMP 36.3–36.4; O2SAT 94–100; BMI 33.7
[2024-05-02 03:16] LABS: Basophils % 0.1 %; Hematocrit 29.9 % (36-47); Lymphocytes # 0.2 10^3/uL (0.8-4.8); Lymphocytes % 1.5 %; Mean Corpuscular HGB Conc 30.8 g/dL (30-55); Mean Corpuscular Hemoglobin 31.4 pg (27-33); Mean Platelet Volume 9.7 fL (7.4-10.4); Monocytes # 0.9 10^3/uL (0.2-0.9); Monocytes % 6.8 %; Neutrophils # 11.29 10^3/uL (1.8-7.7); Neutrophils % 88.8 %; Nucleated Red Blood Cells % 0 %; Platelet Count 200 10^3/cmm (157-399); Red Blood Count 2.93 10^6/uL (3.85-5.65); Red Cell Distribution Width 17.4 % (12.1-15.1)
[2024-05-02 03:40] LABS: Alanine Aminotransferase 45 U/L (0-33); Albumin Level 3.2 g/dL (3.5-5.2); Alkaline Phosphatase 152 U/L (35-105); Anion Gap 15.9 (5-19); Aspartate Amino Transferase 28 U/L (0-32); Blood Urea Nitrogen 37 mg/dL (8-23); Calcium 9.4 mg/dL (8.5-10.5); Carbon Dioxide 27 mmol/L (22-29); Chloride 97 mmol/L (98-107); Creatinine Clr Calc Pharmacy 23.9124; Globulin 3.2 g/dL (1.3-4.6); Glucose 150 mg/dL (65-115); Magnesium 1.7 mg/dL (1.7-2.3); Osmolality Calculated 294 mOsm/kg (285-295); Phosphorus 4.2 mg/dL (2.5-4.5); Potassium 3.9 mmol/L (3.5-5.1); Sodium 136 mmol/L (136-145); Total Bilirubin 0.3 mg/dL (0.15-1.2); Total Protein 6.4 g/dL (6.6-8.7)
[2024-05-02 03:55] LABS: 25 Hydroxy Vitamin D 39 ng/mL (30-100)
[2024-05-02] MEDS: levothyroxine 150 mcg Tablet PO (06:40)
[2024-05-02] MEDS: dexamethasone 10 mg/mL INJ 6 MG IVP (06:40)
[2024-05-02] MEDS: heparin 5,000 unit/mL INJ 1 mL 5000 UNIT SUBCUT ×2 (06:42→18:11)
[2024-05-02] MEDS: budesonide 0.5 mg/2 mL Neb INHALATION ×2 (08:00→20:19)
[2024-05-02] MEDS: ipratropium-albuterol 3 mL Neb INHALATION ×4 (08:00→20:19)
--- NOTE | 2024-05-02 08:15 | PM.PN ---
Subjective Subjective: The patient is short of breath. The patient was seen and examined. Patient is status post hemodialysis yesterday. Patient is on nasal cannula oxygen and nebulizers. The patient required BiPAP overnight. The patient has hemoptysis. Positive cough. Positive edema positive weakness and low blood pressure Medications: Reviewed: Yes Medication Review Details: Current Medications Acetaminophen (Acetaminophen 325 Mg Tablet) 650 mg PO Q6H PRN PRN Reason: Mild/Mod Pain Or Temp >/= 101 Last Admin: 05/01/24 21:34 Dose: 650 mg Albuterol/Ipratropium (Ipratropium-Albuterol 3 Ml Neb) 3 ml INHALATION QID.RESPIRATORY [facility] Last Admin: 05/02/24 08:00 Dose: 3 ml Amiodarone HCl (Amiodarone 200 Mg Tablet) 200 mg PO BID [facility] Last Admin: 05/01/24 18:47 Dose: 200 mg Aspirin (Aspirin 81 Mg Ec Tablet) 81 mg PO DAILY [facility] Last Admin: 05/01/24 08:26 Dose: 81 mg Budesonide (Budesonide 0.5 Mg/2 Ml Neb) 0.5 mg INHALATION BID.RESPIRATORY [facility] Last Admin: 05/02/24 08:00 Dose: 0.5 mg Dexamethasone (Dexamethasone 10 Mg/Ml Inj) 6 mg IVP Q24H [facility] Last Admin: 05/02/24 06:40 Dose: 6 mg Folic Acid (Folic Acid 1 Mg Tablet) 1 mg PO DAILY [facility] Last Admin: 05/01/24 08:26 Dose: 1 mg Glucagon (Glucagon 1 Mg/Ml Kit 1 Ml) 1 mg IM ONCE PRN; Protocol PRN Reason: Adult Acute Hypoglycemia Nursing Prot. Heparin Sodium (Porcine) (Heparin 5,000 Unit/Ml Inj 1 Ml) 5,000 unit SUBCUT Q12H [facility] Last Admin: 05/02/24 06:42 Dose: 5,000 unit Remdesivir 100 mg/ Sodium (Chloride) 100 mls @ 100 mls/hr IV Q24H [facility] Stop: 05/04/24 18:59 Last Admin: 05/01/24 18:47 Dose: 100 mls/hr Vancomycin HCl (Vancocin) 1,250 mg in 250 mls @ 166.667 mls/hr IV Q36H [facility] Last Infusion: 05/01/24 00:27 Dose: Infused Dextrose (D5w) 500 mls @ 0 mls/hr IV ONCE PRN; Protocol PRN Reason: Adult Acute Hypoglycemia Prot Dextrose (D10w) 125 mls @ 750 mls/hr IV PRN PRN; Protocol PRN Reason: Adult Acute Hypoglycemia Nursing Protocol Dextrose (D10w) 250 mls @ 1,000 mls/hr IV PRN PRN; Protocol PRN Reason: Adult Acute Hypoglycemia Nursing Protocol Albumin Human (Albumin) 12.5 gm in 50 mls @ 60 mls/hr IV PRN PRN PRN Reason: Hypotension and/or symptomatic Last Admin: 05/01/24 10:49 Dose: 60 mls/hr Vancomycin HCl 500 mg/ Sodium (Chloride) 100 mls @ 200 mls/hr IV Q48H JOCE Insulin Human Lispro (Insulin Lispro 100 Unit/1 Ml) 0 unit SUBCUT TIDWM JOCE; Protocol Last Admin: 05/01/24 18:50 Dose: 2 unit Levothyroxine Sodium (Levothyroxine 150 Mcg Tablet) 150 mcg PO DAILY@06 [facility] Last Admin: 05/02/24 06:40 Dose: 150 mcg Magnesium Lactate (Magnesium Lactate 84 Mg Tablet) 84 mg PO DAILY@08 JOCE Last Admin: 05/01/24 08:26 Dose: 84 mg Meropenem (Meropenem 500 Mg Sdv) 500 mg IVP Q12H [facility]; Protocol Last Admin: 05/01/24 20:44 Dose: 500 mg Midodrine (Midodrine 5 Mg Tablet) 10 mg PO TID JOCE Last Admin: 05/01/24 20:43 Dose: 10 mg Ondansetron HCl (Ondansetron 2 Mg/Ml Sdv 2 Ml) 4 mg IVP Q8H PRN PRN Reason: vomiting, or N/V if npo Pantoprazole Sodium (Pantoprazole 40 Mg Sdv) 40 mg IVP Q24H JOCE Last Admin: 05/01/24 20:44 Dose: 40 mg Polyethylene Glycol (Polyethylene Glycol 3350 Pkt 17 Gm) 17 gm PO DAILY JOCE Last Admin: 05/01/24 08:26 Dose: 17 gm Sertraline HCl (Sertraline 100 Mg Tablet) 100 mg PO BEDTIME [facility] Last Admin: 05/01/24 20:43 Dose: 100 mg Vitals/I&O/Wt Last Vital Signs Temp 97.6 F 05/02/24 04:00 Pulse 97 05/02/24 08:01 Resp 18 05/02/24 08:01 BP 89/52 05/02/24 03:00 Pulse Ox 99 05/02/24 08:01 O2 Del Method Nasal Cannula 05/02/24 08:01 O2 Flow Rate 3 05/02/24 08:01 FiO2 40 05/02/24 04:45 05/01/24 05/02/24 05/02/24 22:59 06:59 14:59 Intake Total 880 / 1000 0 / 1000 Output Total 2501 / 2501 Balance -1621 / -1501 0 / -1501 Weight last 48 hrs Weight 85 kg Weight 90.3 kg Weight 90.3 kg Weight 86.183 kg Physical Exam Narrative: SOB i bed, using nasal cannula O2. +had bipap overnight. on nebulizers Vital signs noted. HEENT normocephalic atraumatic. Neck is supple. Lungs dull bases some wheezes and ronchi. Heart irregular with systolic murmur. Abdomen is soft positive bowel sounds. Extremities 1+ edema. Dialysis access right anterior chest wall permacath. Neuro awake alert oriented x 3. Patient was seen and examined using A/V equipment and nurse examined her. Data 05/02/24 03:04 05/02/24 03:04 Micro: Microbiology 04/30/24 20:11 Blood Culture - Preliminary Blood NEGATIVE TO DATE 04/30/24 19:17 Blood Culture - Preliminary Blood NEGATIVE TO DATE A&P Assessment and plan (1) End stage renal disease on dialysis: 73-year-old lady obesity, COPD, pneumonia, heart failure preserved EF, diabetes mellitus. 1. pulm- sob, has covid 19 and a pna -cta- Lungs: Moderate volume loss in the right lower lobe. Mild volume loss in the left lower lobe. Ill-defined coarse reticular opacity in the right mid to lower lung. Dense consolidation and volume loss in the posterior and lateral basal segments of the left lower lobe consistent with segmental atelectasis. Pleural spaces: Mildly loculated moderate size right pleural effusion is decreased in size since 03/30/2024. Small simple dependent left pleural effusion is decreased in size since 03/30/2024. No pneumothorax. Heart: There is mild cardiac enlargement. There is no pericardial effusion. Lymph nodes: There is no mediastinal or hilar lymphadenopathy. hemoptysis likely from pna 2. ESRD- HD TTS 3. Diabetic control. 4. Patient has a mild leukocytosis 5. Mild anemia hemoglobin of 9.2 - plts jovany to 200 6. Troponin of 90.5 7. TSH of 1.7 Medications reviewed currently patient on meropenem, vancomycinand remdesivir. Patient seen and examined using audiovisual equipment and the nurse examined the patient. Consent for hemodialysis obtained from the patient. Consent for telemedicine visit obtained from the patient. Plan Antibiotics, antiviral, pulm treatments, dialysis tomorrow. monitor clinical response Attestations Medical Necessity Statement*: Severe shortness of breath, on BiPAP nebulizers low blood pressure pneumonia. Time Spent in Patient Care: 16 - 35 minutes (>than 50% of time spent in counselling and/or direct pt care on unit). Coding Level of Care Code Acute Code for g Fwd Diagnoses End stage renal disease on dialysis N18.6; Z99.2
[2024-05-02 08:53] LABS: Glucose Point of Care 126 mg/dL (70-110)
[2024-05-02] MEDS: midodrine 5 mg TABLET 10 MG PO ×3 (09:06→20:56)
[2024-05-02] MEDS: aspirin 81 mg EC Tablet PO (09:06)
[2024-05-02] MEDS: magnesium lactate 84 mg Tablet PO (09:06)
[2024-05-02] MEDS: amiodarone 200 mg Tablet PO ×2 (09:06→18:11)
[2024-05-02] MEDS: folic acid 1 mg Tablet PO (09:06)
[2024-05-02] MEDS: polyethylene glycol 3350 Pkt 17 gm PO (09:06)
[2024-05-02] MEDS: vancomycin 500 MG in sodium chloride 0.9% (plus) 100 ML 200 MG IV (09:07)
[2024-05-02] MEDS: meropenem 500 mg SDV IVP ×2 (09:07→20:57)
[2024-05-02 09:45] LABS: Vancomycin Random 10.7 ug/mL (20.0-40.0)
[2024-05-02 11:29] LABS: Glucose Point of Care 185 mg/dL (70-110)
[2024-05-02] MEDS: acetaminophen 325 mg Tablet 650 MG PO (11:34)
[2024-05-02] MEDS: insulin lispro 100 unit/1 mL SUBCUT (11:35)
[2024-05-02] MEDS: ondansetron 2 mg/ML SDV 2 mL 4 MG IVP (11:35)
--- NOTE | 2024-05-02 13:26 | P.PN_ITS ---
Subjective 2 Subjective: Still coughing. Less short of breath. Underwent dialysis yesterday. Does not appear fluid overloaded today. Reports no chest pain. Medications: Reviewed: Yes Vitals/I&O/Wt Last Vital Signs Temp 97.6 F 05/02/24 04:00 Pulse 109 H 05/02/24 13:00 Resp 21 H 05/02/24 13:00 BP 119/72 05/02/24 13:00 Pulse Ox 96 05/02/24 13:00 O2 Del Method Nasal Cannula 05/02/24 13:00 O2 Flow Rate 3 05/02/24 11:08 FiO2 40 05/02/24 04:45 05/01/24 05/02/24 05/02/24 22:59 06:59 14:59 Intake Total 880 / 1000 0 / 1000 240 / 240 Output Total 2501 / 2501 Balance -1621 / -1501 0 / -1501 240 / 240 Weight last 48 hrs Weight 85 kg Weight 90.3 kg Weight 90.3 kg Weight 86.183 kg Physical Exam 2 Narrative: General Exam no distress HEENT: Atraumatic normocephalic, oropharynx clear Neck is supple no lymphadenopathy thyromegaly Cardiovascular irregular, irregular with currently controlled rate. Right chest with dialysis catheter Lungs a little coarse bilaterally. Abdomen is soft nontender positive bowel sounds Extremities no cyanosis clubbing edema Data 05/02/24 03:04 05/02/24 03:04 Micro: Microbiology 04/30/24 20:11 Blood Culture - Preliminary Blood NEGATIVE TO DATE 04/30/24 19:17 Blood Culture - Preliminary Blood NEGATIVE TO DATE A&P Assessment and plan (1) Acute hypoxic respiratory failure: Patient presents with acute hypoxic respiratory failure This is likely secondary to COVID-19 pneumonia She is down to requiring only 3 L of oxygen. CTA and venous duplex have been ordered. No PE. No DVT. Pleural effusions less. Currently CSU status (2) Pneumonia due to COVID-19 virus: Continue remdesivir Continue dexamethasone Note that she is on 3 to 4 L of oxygen at baseline. Currently on 3 L Hold methotrexate Concern of superimposed bacterial infection. Currently on vancomycin and meropenem. Await cultures (3) COPD exacerbation: Budesonide DuoNeb every 6 hours IV dexamethasone (4) Elevated troponin: Secondary to acute illness with COVID, end-stage renal disease (5) End stage renal disease on dialysis: Nephrology consultation appreciated for hemodialysis. No need for hemodialysis today (6) Chronic atrial fibrillation: Atrial fibrillation with rapid ventricular rate on arrival Likely secondary to acute illness Wean off amiodarone, placed back on her amiodarone. Dose was increased to 200 mg twice daily Plan Other medical problems as outlined in past medical history Full code currently Changed to heparin for DVT prophylaxis from Lovenox Attestations 2 Medical Necessity Statement*: Needs continued hospitalization for IV remdesivir and dexamethasone secondary to COVID-19 pneumonia. If continues to improve, possible discharge in the next 1 to 2 days. Diagnoses Acute hypoxic respiratory failure J96.01 Pneumonia due to COVID-19 virus U07.1; J12.82 COPD exacerbation J44.1 Elevated troponin R77.8 End stage renal disease on dialysis N18.6; Z99.2 Chronic atrial fibrillation I48.20 Time Spent (min) 23
[2024-05-02 17:39] LABS: Glucose Point of Care 136 mg/dL (70-110)
[2024-05-02] MEDS: remdesivir 100 MG in sodium chloride 0.9% (100 ml) 80 ML IV (18:10)
[2024-05-02] MEDS: sertraline 100 mg Tablet PO (20:56)
[2024-05-02] MEDS: pantoprazole 40 mg SDV IVP (20:57)
[2024-05-02 21:17] LABS: Glucose Point of Care 177 mg/dL (70-110)
[2024-05-03] VITALS (37 sets, daily range): BP systolic 88–191; BP diastolic 59–96; PULSE 93–117; RESP 17–32; TEMP 36.4–36.9; O2SAT 93–100
[2024-05-03] MEDS: levothyroxine 150 mcg Tablet PO (05:29)
[2024-05-03] MEDS: acetaminophen 325 mg Tablet 650 MG PO ×3 (05:29→22:15)
[2024-05-03] MEDS: dexamethasone 10 mg/mL INJ 6 MG IVP (05:30)
[2024-05-03] MEDS: heparin 5,000 unit/mL INJ 1 mL 5000 UNIT SUBCUT ×2 (06:22→17:59)
[2024-05-03 06:23] LABS: Basophils # 0.1 10^3/uL (0.0-0.1); Basophils % 0.6 %; Eosinophils % 0.2 %; Hematocrit 33.5 % (36-47); Lymphocytes # 0.6 10^3/uL (0.8-4.8); Lymphocytes % 5.7 %; Mean Corpuscular HGB Conc 30.4 g/dL (30-55); Mean Corpuscular Volume 101.8 fl (85-98); Mean Platelet Volume 9.9 fL (7.4-10.4); Monocytes % 9.1 %; Neutrophils # 8.15 10^3/uL (1.8-7.7); Neutrophils % 77.7 %; Nucleated Red Blood Cells % 0 %; Platelet Count 249 10^3/cmm (157-399); Red Blood Count 3.29 10^6/uL (3.85-5.65); Red Cell Distribution Width 18.2 % (12.1-15.1); White Blood Count 10.48 10^3/uL (3.29-11.43)
[2024-05-03 06:39] LABS: Alanine Aminotransferase 45 U/L (0-33); Albumin Level 3.2 g/dL (3.5-5.2); Alkaline Phosphatase 164 U/L (35-105); Anion Gap 19.1 (5-19); Aspartate Amino Transferase 33 U/L (0-32); Blood Urea Nitrogen 62 mg/dL (8-23); Calcium 8.9 mg/dL (8.5-10.5); Carbon Dioxide 25 mmol/L (22-29); Chloride 96 mmol/L (98-107); Globulin 2.6 g/dL (1.3-4.6); Glucose 108 mg/dL (65-115); Magnesium 1.7 mg/dL (1.7-2.3); Osmolality Calculated 300 mOsm/kg (285-295); Phosphorus 4.6 mg/dL (2.5-4.5); Potassium 4.1 mmol/L (3.5-5.1); Sodium 136 mmol/L (136-145); Total Bilirubin 0.3 mg/dL (0.15-1.2); Total Protein 5.8 g/dL (6.6-8.7); Vancomycin Random 14.8 ug/mL (20.0-40.0)
[2024-05-03 06:45] LABS: Creatinine Clr Calc Pharmacy 16.4775
[2024-05-03 07:14] LABS: Slide Review Slide Review Perform
[2024-05-03 07:29] LABS: Glucose Point of Care 133 mg/dL (70-110)
[2024-05-03] MEDS: ipratropium-albuterol 3 mL Neb INHALATION ×4 (07:49→19:39)
[2024-05-03] MEDS: budesonide 0.5 mg/2 mL Neb INHALATION ×2 (07:49→19:39)
--- NOTE | 2024-05-03 08:44 | P.PN_ITS ---
Subjective 2 Subjective: Reports that she does not feel as well this morning. She is still a little short of breath, and reports having some bodyaches. States that she is hungry this morning. She is planning to have dialysis today. States that she has not been having much bowel movement, but she did have yesterday. Medications: Reviewed: Yes Vitals/I&O/Wt Last Vital Signs Temp 97.6 F 05/03/24 06:09 Pulse 114 H 05/03/24 07:55 Resp 32 H 05/03/24 07:35 BP 114/76 05/03/24 04:00 Pulse Ox 93 05/03/24 07:54 O2 Del Method BiPAP 05/03/24 07:35 O2 Flow Rate 3 05/03/24 04:31 FiO2 35 05/03/24 07:54 05/02/24 05/03/24 05/03/24 22:59 06:59 14:59 Intake Total 370 / 610 Balance 370 / 610 Weight last 48 hrs Weight 193 lb 9.6 oz Weight 190 lb 11.198 oz Weight 187 lb 6.287 oz Physical Exam 2 Narrative: General: No acute distress. She has mild tachypnea. HEENT: Atraumatic normocephalic, MMM without thyromegaly or lymphadenopathy.. Neck is supple Cardiovascular: Irregularly, irregular with currently controlled rate. Lungs: Coarse sounds bilaterally. Minimal wheezing upper airways. Abdomen: Soft, nontender, nondistended. Bowel sounds present and normal. Extremities: No cyanosis, clubbing, or edema. Data 05/03/24 06:00 05/03/24 06:00 A&P Assessment and plan (1) Acute hypoxic respiratory failure: Patient presents with acute hypoxic respiratory failure This is likely secondary to COVID-19 pneumonia She is down to requiring only 3 L of oxygen. CTA and venous duplex have been ordered. No PE. No DVT. Pleural effusions less. Currently CSU status (2) Pneumonia due to COVID-19 virus: Continue remdesivir Continue dexamethasone Note that she is on 3 to 4 L of oxygen at baseline. Currently on 3 L Hold methotrexate Concern of superimposed bacterial infection. Currently on vancomycin and meropenem. Await cultures (3) COPD exacerbation: Budesonide DuoNeb every 6 hours IV dexamethasone (4) Elevated troponin: Secondary to acute illness with COVID, end-stage renal disease (5) End stage renal disease on dialysis: Nephrology consultation appreciated for hemodialysis. No need for hemodialysis today (6) Chronic atrial fibrillation: Atrial fibrillation with rapid ventricular rate on arrival Likely secondary to acute illness Wean off amiodarone, placed back on her amiodarone. Dose was increased to 200 mg twice daily Plan PLAN FOR TODAY: Need close inpatient monitoring. HR is controlled currently. Has been in the 90-100 range. Blood pressure is stable. Clinically patient does not appear ready for discharge. Would like to see her breathing a little more at ease and stable before sending her home again. She does have Dialysis scheduled for today. WBC count is down to 10.4 today. Other labs were unremarkable. Cr @ 3.1 prior to dialysis. For COVID infection will continue to remdesivir and dexamethasone. Continue treatment of pneumonia with vancomycin and meropenem. Amiodarone was increased to twice a day and this does appear to have improved her heart rate. We will continue for now and re-evaluate at discharge. Currently on 3 L per nasal cannula with sats in the upper 90s. Recheck a.m. labs. Code Status: Full IVF: None DVT PPx: Heparin GI PPx: Protonix ABx: Vancomycin, meropenem, remdesivir, dexamethasone Diet: Renal dialysis diet Discharge plan: SNF Attestations 2 Medical Necessity Statement*: Needs continued hospitalization for IV remdesivir and dexamethasone secondary to COVID-19 pneumonia. If continues to improve, possible discharge in the next 1 to 2 days. Coding Level of Care Code Acute Code for [facility] Diagnoses Acute hypoxic respiratory failure J96.01 Pneumonia due to COVID-19 virus U07.1; J12.82 COPD exacerbation J44.1 Elevated troponin R77.8 End stage renal disease on dialysis N18.6; Z99.2 Chronic atrial fibrillation I48.20
[2024-05-03] MEDS: aspirin 81 mg EC Tablet PO (08:51)
[2024-05-03] MEDS: magnesium lactate 84 mg Tablet PO (08:51)
[2024-05-03] MEDS: meropenem 500 mg SDV IVP ×2 (08:51→22:14)
[2024-05-03] MEDS: polyethylene glycol 3350 Pkt 17 gm PO (08:51)
[2024-05-03] MEDS: amiodarone 200 mg Tablet PO ×2 (08:51→17:58)
[2024-05-03] MEDS: folic acid 1 mg Tablet PO (08:51)
--- NOTE | 2024-05-03 09:16 | P.PN_ITS ---
Subjective 2 Subjective: Complains of shortness of breath cough weakness. States she still not feeling well. Blood pressure improving. Medications: Reviewed: Yes Medication Review Details: Current Medications Acetaminophen (Acetaminophen 325 Mg Tablet) 650 mg PO Q6H PRN PRN Reason: Mild/Mod Pain Or Temp >/= 101 Last Admin: 05/03/24 05:29 Dose: 650 mg Albuterol/Ipratropium (Ipratropium-Albuterol 3 Ml Neb) 3 ml INHALATION QID.RESPIRATORY JOCE Last Admin: 05/03/24 07:49 Dose: 3 ml Amiodarone HCl (Amiodarone 200 Mg Tablet) 200 mg PO BID JOCE Last Admin: 05/03/24 08:51 Dose: 200 mg Aspirin (Aspirin 81 Mg Ec Tablet) 81 mg PO DAILY JOCE Last Admin: 05/03/24 08:51 Dose: 81 mg Budesonide (Budesonide 0.5 Mg/2 Ml Neb) 0.5 mg INHALATION BID.RESPIRATORY JOCE Last Admin: 05/03/24 07:49 Dose: 0.5 mg Dexamethasone (Dexamethasone 10 Mg/Ml Inj) 6 mg IVP Q24H JOCE Last Admin: 05/03/24 05:30 Dose: 6 mg Folic Acid (Folic Acid 1 Mg Tablet) 1 mg PO DAILY JOCE Last Admin: 05/03/24 08:51 Dose: 1 mg Glucagon (Glucagon 1 Mg/Ml Kit 1 Ml) 1 mg IM ONCE PRN; Protocol PRN Reason: Adult Acute Hypoglycemia Nursing Prot. Heparin Sodium (Porcine) (Heparin 5,000 Unit/Ml Inj 1 Ml) 5,000 unit SUBCUT Q12H [facility] Last Admin: 05/03/24 06:22 Dose: 5,000 unit Remdesivir 100 mg/ Sodium (Chloride) 100 mls @ 100 mls/hr IV Q24H JOCE Stop: 05/04/24 18:59 Last Infusion: 05/02/24 19:16 Dose: Infused Dextrose (D5w) 500 mls @ 0 mls/hr IV ONCE PRN; Protocol PRN Reason: Adult Acute Hypoglycemia Prot Dextrose (D10w) 125 mls @ 750 mls/hr IV PRN PRN; Protocol PRN Reason: Adult Acute Hypoglycemia Nursing Protocol Dextrose (D10w) 250 mls @ 1,000 mls/hr IV PRN PRN; Protocol PRN Reason: Adult Acute Hypoglycemia Nursing Protocol Albumin Human (Albumin) 12.5 gm in 50 mls @ 60 mls/hr IV PRN PRN PRN Reason: Hypotension and/or symptomatic Last Infusion: 05/02/24 19:17 Dose: Infused Vancomycin HCl 500 mg/ Sodium (Chloride) 100 mls @ 200 mls/hr IV Q48H [facility] Last Infusion: 05/02/24 19:16 Dose: Infused Insulin Human Lispro (Insulin Lispro 100 Unit/1 Ml) 0 unit SUBCUT TIDWM [facility], [facility]; Protocol Last Admin: 05/03/24 07:53 Dose: Not Given Levothyroxine Sodium (Levothyroxine 150 Mcg Tablet) 150 mcg PO DAILY@06 [facility] Last Admin: 05/03/24 05:29 Dose: 150 mcg Magnesium Lactate (Magnesium Lactate 84 Mg Tablet) 84 mg PO DAILY@08 [facility] Last Admin: 05/03/24 08:51 Dose: 84 mg Meropenem (Meropenem 500 Mg Sdv) 500 mg IVP Q12H [facility]; Protocol Last Admin: 05/03/24 08:51 Dose: 500 mg Midodrine (Midodrine 5 Mg Tablet) 10 mg PO TID [facility] Last Admin: 05/03/24 08:51 Dose: Not Given Ondansetron HCl (Ondansetron 2 Mg/Ml Sdv 2 Ml) 4 mg IVP Q8H PRN PRN Reason: vomiting, or N/V if npo Last Admin: 05/02/24 11:35 Dose: 4 mg Pantoprazole Sodium (Pantoprazole 40 Mg Sdv) 40 mg IVP Q24H [facility] Last Admin: 05/02/24 20:57 Dose: 40 mg Polyethylene Glycol (Polyethylene Glycol 3350 Pkt 17 Gm) 17 gm PO DAILY [facility] Last Admin: 05/03/24 08:51 Dose: 17 gm Sertraline HCl (Sertraline 100 Mg Tablet) 100 mg PO BEDTIME [facility] Last Admin: 05/02/24 20:56 Dose: 100 mg Vitals/I&O/Wt Last Vital Signs Temp 97.6 F 05/03/24 06:09 Pulse 114 H 05/03/24 07:55 Resp 32 H 05/03/24 07:35 BP 114/76 05/03/24 04:00 Pulse Ox 93 05/03/24 07:54 O2 Del Method BiPAP 05/03/24 07:35 O2 Flow Rate 3 05/03/24 04:31 FiO2 35 05/03/24 07:54 05/02/24 05/03/24 05/03/24 22:59 06:59 14:59 Intake Total 370 / 610 Balance 370 / 610 Weight last 48 hrs Weight 87.815 kg Weight 86.5 kg Weight 85 kg Physical Exam 2 Narrative: SOB in bed, using nasal cannula O2. Vital signs noted. HEENT normocephalic atraumatic. Neck is supple. Lungs dull bases some wheezes and ronchi. Heart irregular with systolic murmur. Abdomen is soft positive bowel sounds. Extremities 1+ edema. Dialysis access right anterior chest wall permacath. Neuro awake alert oriented x 3. Patient was seen and examined using A/V equipment and nurse examined her. Data 05/03/24 06:00 05/03/24 06:00 A&P Assessment and plan (1) End stage renal disease on dialysis: 73-year-old lady obesity, COPD, pneumonia, heart failure preserved EF, diabetes mellitus. 1. pulm- sob, has covid 19 and a pna -cta- Lungs: Moderate volume loss in the right lower lobe. Mild volume loss in the left lower lobe. Ill-defined coarse reticular opacity in the right mid to lower lung. Dense consolidation and volume loss in the posterior and lateral basal segments of the left lower lobe consistent with segmental atelectasis. Pleural spaces: Mildly loculated moderate size right pleural effusion is decreased in size since 03/30/2024. Small simple dependent left pleural effusion is decreased in size since 03/30/2024. No pneumothorax. Heart: There is mild cardiac enlargement. There is no pericardial effusion. Lymph nodes: There is no mediastinal or hilar lymphadenopathy. hemoptysis likely from pna 2. ESRD- HD TTS BP improving 3. Diabetic control. 4. Patient has a mild leukocytosis. White cell count stable at 10.5 5. Mild anemia hemoglobin of 10, acceptable for ESRD - plts jovany to 249. Her thrombocytopenia was likely from infection 6. Chronic atrial fibrillation. 7. TSH of 1.7 8. COPD improving. Patient seen and examined using audiovisual equipment and the nurse examined the patient. Consent for hemodialysis obtained from the patient. Consent for telemedicine visit obtained from the patient. Plan Antibiotics and antivirals as per medicine. Plan for dialysis today. Monitor Attestations 2 Medical Necessity Statement*: Shortness of breath, COVID, pneumonia Time Spent in Patient Care: 16 - 35 minutes (>than 50% of time sp ent in counselling and/or direct pt care on unit) . Coding Level of Care Code Acute Code for [facility] Diagnoses End stage renal disease on dialysis N18.6; Z99.2
[2024-05-03 12:10] LABS: Glucose Point of Care 213 mg/dL (70-110)
[2024-05-03] MEDS: albumin 12.5 GM/50 ML VIAL IV ×2 (13:13→13:51)
[2024-05-03] MEDS: heparin, porcine 1,000 unit/mL INJ 10 mL 10000 UNIT HE (13:26)
[2024-05-03] MEDS: heparin, porcine 1,000 unit/mL INJ 10 mL 10000 UNIT INTRACATH (13:27)
[2024-05-03] MEDS: insulin lispro 100 unit/1 mL SUBCUT ×2 (15:38→17:59)
[2024-05-03] MEDS: midodrine 5 mg TABLET 10 MG PO ×2 (15:38→22:14)
[2024-05-03 17:31] LABS: Glucose Point of Care 162 mg/dL (70-110)
[2024-05-03] MEDS: remdesivir 100 MG in sodium chloride 0.9% (100 ml) 80 ML IV (17:58)
[2024-05-03] MEDS: lactulose oral liq 20 gm/30 mL UDC 10 GM PO (17:58)
[2024-05-03] MEDS: vancomycin 500 MG in sodium chloride 0.9% (plus) 100 ML 200 MG IV (17:58)
[2024-05-03 21:31] LABS: Glucose Point of Care 195 mg/dL (70-110)
[2024-05-03] MEDS: pantoprazole 40 mg SDV IVP (22:14)
[2024-05-03] MEDS: sertraline 100 mg Tablet PO (22:15)
[2024-05-04] VITALS (62 sets, daily range): BP systolic 86–169; BP diastolic 54–118; PULSE 89–115; RESP 17–31; TEMP 36.8–37.1; O2SAT 81–100
[2024-05-04 04:05] LABS: Basophils % 0.3 %; Eosinophils % 0.1 %; Hematocrit 31.1 % (36-47); Lymphocytes # 0.4 10^3/uL (0.8-4.8); Lymphocytes % 3.9 %; Mean Corpuscular HGB Conc 30.5 g/dL (30-55); Mean Corpuscular Hemoglobin 30.9 pg (27-33); Mean Corpuscular Volume 101.3 fl (85-98); Mean Platelet Volume 9.7 fL (7.4-10.4); Monocytes # 0.7 10^3/uL (0.2-0.9); Neutrophils # 9.29 10^3/uL (1.8-7.7); Neutrophils % 85.1 %; Nucleated Red Blood Cells % 0 %; Platelet Count 190 10^3/cmm (157-399); Red Blood Count 3.07 10^6/uL (3.85-5.65); Red Cell Distribution Width 18.4 % (12.1-15.1); White Blood Count 10.92 10^3/uL (3.29-11.43)
[2024-05-04 04:41] LABS: Alanine Aminotransferase 46 U/L (0-33); Albumin Level 3.3 g/dL (3.5-5.2); Alkaline Phosphatase 150 U/L (35-105); Anion Gap 21.3 (5-19); Aspartate Amino Transferase 45 U/L (0-32); Blood Urea Nitrogen 40 mg/dL (8-23); Calcium 9.3 mg/dL (8.5-10.5); Carbon Dioxide 23 mmol/L (22-29); Chloride 98 mmol/L (98-107); Creatinine Clr Calc Pharmacy 21.0513; Globulin 3.2 g/dL (1.3-4.6); Glucose 130 mg/dL (65-115); Magnesium 1.9 mg/dL (1.7-2.3); Osmolality Calculated 298 mOsm/kg (285-295); Phosphorus 3.9 mg/dL (2.5-4.5); Potassium 4.3 mmol/L (3.5-5.1); Sodium 138 mmol/L (136-145); Total Bilirubin 0.3 mg/dL (0.15-1.2); Total Protein 6.5 g/dL (6.6-8.7)
[2024-05-04] MEDS: levothyroxine 150 mcg Tablet PO (06:02)
[2024-05-04] MEDS: dexamethasone 10 mg/mL INJ 6 MG IVP (06:02)
[2024-05-04] MEDS: heparin 5,000 unit/mL INJ 1 mL 5000 UNIT SUBCUT ×2 (06:03→19:37)
[2024-05-04] MEDS: ipratropium-albuterol 3 mL Neb INHALATION ×3 (07:57→20:22)
[2024-05-04] MEDS: budesonide 0.5 mg/2 mL Neb INHALATION ×2 (07:57→20:23)
--- NOTE | 2024-05-04 08:33 | P.PN_ITS ---
Subjective 2 Subjective: less sob. still weak. no n/v/f/c/hah/d. had dialysis yesterday Medications: Reviewed: Yes Medication Review Details: Current Medications Acetaminophen (Acetaminophen 325 Mg Tablet) 650 mg PO Q6H PRN PRN Reason: Mild/Mod Pain Or Temp >/= 101 Last Admin: 05/03/24 22:15 Dose: 650 mg Albuterol/Ipratropium (Ipratropium-Albuterol 3 Ml Neb) 3 ml INHALATION QID.RESPIRATORY JOCE Last Admin: 05/04/24 07:57 Dose: 3 ml Amiodarone HCl (Amiodarone 200 Mg Tablet) 200 mg PO BID JOCE Last Admin: 05/03/24 17:58 Dose: 200 mg Aspirin (Aspirin 81 Mg Ec Tablet) 81 mg PO DAILY [facility] Last Admin: 05/03/24 08:51 Dose: 81 mg Budesonide (Budesonide 0.5 Mg/2 Ml Neb) 0.5 mg INHALATION BID.RESPIRATORY [facility] Last Admin: 05/04/24 07:57 Dose: 0.5 mg Dexamethasone (Dexamethasone 10 Mg/Ml Inj) 6 mg IVP Q24H JOCE Last Admin: 05/04/24 06:02 Dose: 6 mg Folic Acid (Folic Acid 1 Mg Tablet) 1 mg PO DAILY [facility] Last Admin: 05/03/24 08:51 Dose: 1 mg Glucagon (Glucagon 1 Mg/Ml Kit 1 Ml) 1 mg IM ONCE PRN; Protocol PRN Reason: Adult Acute Hypoglycemia Nursing Prot. Heparin Sodium (Porcine) (Heparin 5,000 Unit/Ml Inj 1 Ml) 5,000 unit SUBCUT Q12H [facility] Last Admin: 05/04/24 06:03 Dose: 5,000 unit Remdesivir 100 mg/ Sodium (Chloride) 100 mls @ 100 mls/hr IV Q24H [facility] Stop: 05/04/24 18:59 Last Admin: 05/03/24 17:58 Dose: 100 mls/hr Dextrose (D5w) 500 mls @ 0 mls/hr IV ONCE PRN; Protocol PRN Reason: Adult Acute Hypoglycemia Prot Dextrose (D10w) 125 mls @ 750 mls/hr IV PRN PRN; Protocol PRN Reason: Adult Acute Hypoglycemia Nursing Protocol Dextrose (D10w) 250 mls @ 1,000 mls/hr IV PRN PRN; Protocol PRN Reason: Adult Acute Hypoglycemia Nursing Protocol Albumin Human (Albumin) 12.5 gm in 50 mls @ 60 mls/hr IV PRN PRN PRN Reason: Hypotension and/or symptomatic Last Admin: 05/03/24 13:51 Dose: 60 mls/hr Vancomycin HCl 500 mg/ Sodium (Chloride) 100 mls @ 200 mls/hr IV Q48H [facility] Last Admin: 05/03/24 17:58 Dose: 200 mls/hr Insulin Human Lispro (Insulin Lispro 100 Unit/1 Ml) 0 unit SUBCUT TIDWM [facility]; Protocol Last Admin: 05/03/24 17:59 Dose: 2 unit Lactulose (Lactulose Oral Liq 20 Gm/30 Ml Udc) 10 gm PO DAILY [facility] Levothyroxine Sodium (Levothyroxine 150 Mcg Tablet) 150 mcg PO DAILY@06 [facility] Last Admin: 05/04/24 06:02 Dose: 150 mcg Magnesium Lactate (Magnesium Lactate 84 Mg Tablet) 84 mg PO DAILY@08 [facility] Last Admin: 05/03/24 08:51 Dose: 84 mg Meropenem (Meropenem 500 Mg Sdv) 500 mg IVP Q12H [facility]; Protocol Last Admin: 05/03/24 22:14 Dose: 500 mg Midodrine (Midodrine 5 Mg Tablet) 10 mg PO TID [facility] Last Admin: 05/03/24 22:14 Dose: 10 mg Ondansetron HCl (Ondansetron 2 Mg/Ml Sdv 2 Ml) 4 mg IVP Q8H PRN PRN Reason: vomiting, or N/V if npo Last Admin: 05/02/24 11:35 Dose: 4 mg Pantoprazole Sodium (Pantoprazole 40 Mg Sdv) 40 mg IVP Q24H [facility] Last Admin: 05/03/24 22:14 Dose: 40 mg Sertraline HCl (Sertraline 100 Mg Tablet) 100 mg PO BEDTIME [facility] Last Admin: 05/03/24 22:15 Dose: 100 mg Vitals/I&O/Wt Last Vital Signs Temp 98.2 F 05/04/24 06:00 Pulse 99 05/04/24 08:14 Resp 17 05/04/24 07:57 BP 119/94 05/04/24 06:00 Pulse Ox 96 05/04/24 07:57 O2 Del Method Nasal Cannula 05/03/24 21:35 O2 Flow Rate 3 05/04/24 07:57 FiO2 25 05/03/24 22:10 05/03/24 05/04/24 05/04/24 22:59 06:59 14:59 Intake Total 960 / 1490 Output Total 1832 / 1832 Balance -872 / -342 Weight last 48 hrs Weight 83.5 kg Weight 86 kg Weight 87.815 kg Physical Exam 2 Narrative: SOB in bed, using nasal cannula O2. nebs as needed Vital signs noted. HEENT normocephalic atraumatic. Neck is supple. Lungs dull bases and ronchi. Heart irregular with systolic murmur. Abdomen is soft positive bowel sounds. Extremities trace b/l edema. Dialysis access right anterior chest wall permacath. Neuro awake alert oriented x 3. Patient was seen and examined using A/V equipment and nurse examined her. Data 05/04/24 03:33 05/04/24 03:33 A&P Assessment and plan (1) End stage renal disease on dialysis: 73-year-old lady obesity, COPD, pneumonia, heart failure preserved EF, diabetes mellitus. 1. pulm- sob, has covid 19 and a pna -cta- Lungs: Moderate volume loss in the right lower lobe. Mild volume loss in the left lower lobe. Ill-defined coarse reticular opacity in the right mid to lower lung. Dense consolidation and volume loss in the posterior and lateral basal segments of the left lower lobe consistent with segmental atelectasis. Pleural spaces: Mildly loculated moderate size right pleural effusion is decreased in size since 03/30/2024. Small simple dependent left pleural effusion is decreased in size since 03/30/2024. No pneumothorax. Heart: There is mild cardiac enlargement. There is no pericardial effusion. Lymph nodes: There is no mediastinal or hilar lymphadenopathy. hemoptysis likely from pna -cont abx -if in hospital tomorrow, will do SUF 2. ESRD- HD TTS 3. Diabetic control. 4. Patient has a mild leukocytosis. White cell count stable at 10.9 5. Mild anemia hemoglobin of 10, acceptable for ESRD - plts jovany to 249. Her thrombocytopenia was likely from infection 6. Chronic atrial fibrillation. 7. TSH of 1.7 8. COPD , pna, covid- still SOB Patient seen and examined using audiovisual equipment and the nurse examined the patient. Consent for hemodialysis obtained from the patient. Consent for telemedicine visit obtained from the patient. Plan Antibiotics and antivirals as per medicine. Plan for SUF tomorrow if still in hospital Attestations 2 Medical Necessity Statement*: sob, pna, esrd, onese, copd Time Spent in Patient Care: 16 - 35 minutes (>than 50% of time sp ent in counselling and/or direct pt care on unit) . Coding Level of Care Code Acute Code for [facility] Diagnoses End stage renal disease on dialysis N18.6; Z99.2
[2024-05-04] MEDS: meropenem 500 mg SDV IVP ×2 (09:05→21:24)
[2024-05-04] MEDS: lactulose oral liq 20 gm/30 mL UDC 10 GM PO (09:07)
[2024-05-04] MEDS: folic acid 1 mg Tablet PO (09:07)
[2024-05-04] MEDS: magnesium lactate 84 mg Tablet PO (09:07)
[2024-05-04] MEDS: amiodarone 200 mg Tablet PO ×2 (09:07→17:45)
[2024-05-04] MEDS: aspirin 81 mg EC Tablet PO (09:07)
[2024-05-04] MEDS: insulin lispro 100 unit/1 mL SUBCUT ×2 (09:32→12:23)
[2024-05-04] MEDS: lidocaine 5% Patch 1 PATCH TOPICAL (09:38)
[2024-05-04] MEDS: ondansetron 2 mg/ML SDV 2 mL 4 MG IVP (12:16)
[2024-05-04 13:08] LABS: Glucose Point of Care 292 mg/dL (70-110)
--- NOTE | 2024-05-04 16:12 | PM.PN ---
Subjective Subjective: Patient reports feeling better this morning. States that she does continue to be a little short of breath, but she says overall she feels better. States that she is hungry this morning. She did have dialysis yesterday. Nephrology would like to wait for the next 2 days before another treatment.. Medications: Reviewed: Yes Vitals/I&O/Wt Last Vital Signs Temp 98.6 F 05/04/24 12:30 Pulse 100 05/04/24 16:06 Resp 17 05/04/24 15:43 BP 100/74 05/04/24 14:00 Pulse Ox 98 05/04/24 15:43 O2 Del Method Nasal Cannula 05/04/24 15:43 O2 Flow Rate 3 05/04/24 15:43 FiO2 25 05/03/24 22:10 05/04/24 05/04/24 05/04/24 06:59 14:59 22:59 Intake Total 600 / 600 Balance 600 / 600 Weight last 48 hrs Weight 184 lb 1.376 oz Weight 189 lb 9.561 oz Weight 193 lb 9.6 oz Physical Exam Narrative: General: No acute distress. Pleasant and cooperative. HEENT: Atraumatic normocephalic, MMM without thyromegaly or lymphadenopathy.. Neck is supple Cardiovascular: Irregularly, irregular with currently controlled rate. Lungs: Coarse sounds bilaterally. Minimal wheezing upper airways. Abdomen: Soft, nontender, nondistended. Bowel sounds present and normal. Extremities: No cyanosis, clubbing, or edema. Data 05/04/24 03:33 05/04/24 03:33 A&P Assessment and plan (1) Acute hypoxic respiratory failure: Patient presents with acute hypoxic respiratory failure This is likely secondary to COVID-19 pneumonia She is currently on her baseline oxygen supplementation of 3 L. (2) Pneumonia due to COVID-19 virus: Continue remdesivir Continue dexamethasone Note that she is on 3 to 4 L of oxygen at baseline. Currently on 3 L Currently holding methotrexate. (3) COPD exacerbation: Budesonide DuoNeb every 6 hours IV dexamethasone (4) Elevated troponin: Secondary to acute illness with COVID, end-stage renal disease (5) End stage renal disease on dialysis: Nephrology consultation appreciated for hemodialysis. No need for hemodialysis today (6) Chronic atrial fibrillation: Atrial fibrillation with rapid ventricular rate on arrival Likely secondary to acute illness Wean off amiodarone, placed back on her amiodarone. Dose was increased to 200 mg twice daily Plan PLAN FOR TODAY: Need close inpatient monitoring. Patient reports feeling better overall. HR is controlled currently. Has been in the 90-100 range. Blood pressure is stable. Discussed discharge today, but there was some discrepancy on obtaining her antibiotics if she were to discharge to the skilled nursing. They were unable to get her set up with her medications until late tomorrow evening, and with this in mind we will plan for discharge on Sunday, if she remains stable. Will continue her amiodarone twice a day while inpatient, and this will need to be reduced back to daily upon discharge. Her white blood cell count is back to normal range. Creatinine today is 2.4 after dialysis. She did have a mild elevation in her liver enzymes that has persisted through her hospital stay. Her respiratory status has improved and she is currently on 3 L per nasal cannula with sats in the upper 90s. Her home baseline oxygen requirement is 3 to 4 L. Plan for discharge tomorrow. Will need to be assessed for any additional antibiotic need, remdesivir, corticosteroid, and follow-up. Code Status: Full IVF: None DVT PPx: Heparin GI PPx: Protonix ABx: Vancomycin, meropenem, remdesivir, dexamethasone Diet: Renal dialysis diet Discharge plan: SNF Attestations Medical Necessity Statement*: Needs continued hospitalization for IV remdesivir and dexamethasone secondary to COVID-19 pneumonia. If continues to improve, possible discharge in the next 1 to 2 days. Coding Level of Care Code Acute Code for [facility] Moderate MDM includes number and complexity of problems actively addressed during encounter, amount and/or complexity of data reviewed/ordered and described risk of complication, morbidity or mortality of management as documented Diagnoses Acute hypoxic respiratory failure J96.01 Pneumonia due to COVID-19 virus U07.1; J12.82 COPD exacerbation J44.1 Elevated troponin R77.8 End stage renal disease on dialysis N18.6; Z99.2 Chronic atrial fibrillation I48.20
[2024-05-04 16:34] LABS: Glucose Point of Care 137 mg/dL (70-110)
[2024-05-04] MEDS: midodrine 5 mg TABLET 10 MG PO ×2 (16:39→21:23)
[2024-05-04] MEDS: acetaminophen 325 mg Tablet 650 MG PO (16:40)
[2024-05-04] MEDS: remdesivir 100 MG in sodium chloride 0.9% (100 ml) 80 ML IV (17:43)
--- NOTE | 2024-05-04 18:19 | PC.NURSE ---
SHift SUmmary: Uneventful shift. Rested in bed throughout the day. Likely DC tomorrow after morning antibiotics per Dr Delcid.
[2024-05-04 18:30] LABS: Glucose Point of Care 162 mg/dL (70-110)
[2024-05-04] MEDS: sertraline 100 mg Tablet PO (21:23)
[2024-05-04] MEDS: pantoprazole 40 mg SDV IVP (21:24)
[2024-05-04 21:52] LABS: Glucose Point of Care 310 mg/dL (70-110)
[2024-05-04] MEDS: insulin glargine 100 units/1 mL 5 UNIT SUBCUT (23:04)
[2024-05-05] VITALS (34 sets, daily range): BP systolic 79–149; BP diastolic 50–129; PULSE 83–114; RESP 15–30; TEMP 36.6–37; O2SAT 94–100; BMI 33.5
[2024-05-05] MEDS: acetaminophen 325 mg Tablet 650 MG PO (03:23)
[2024-05-05] MEDS: ondansetron 2 mg/ML SDV 2 mL 4 MG IVP (03:23)
[2024-05-05 03:42] LABS: Basophils % 0.3 %; Hematocrit 32.4 % (36-47); Lymphocytes # 0.4 10^3/uL (0.8-4.8); Lymphocytes % 2.7 %; Mean Corpuscular HGB Conc 30.9 g/dL (30-55); Mean Corpuscular Hemoglobin 31.2 pg (27-33); Mean Corpuscular Volume 100.9 fl (85-98); Monocytes # 0.9 10^3/uL (0.2-0.9); Monocytes % 5.9 %; Neutrophils # 13.17 10^3/uL (1.8-7.7); Neutrophils % 86.3 %; Nucleated Red Blood Cells % 0 %; Platelet Count 275 10^3/cmm (157-399); Red Blood Count 3.21 10^6/uL (3.85-5.65); Red Cell Distribution Width 18.7 % (12.1-15.1); White Blood Count 15.26 10^3/uL (3.29-11.43)
[2024-05-05 04:00] LABS: Alanine Aminotransferase 46 U/L (0-33); Albumin Level 3.4 g/dL (3.5-5.2); Alkaline Phosphatase 187 U/L (35-105); Blood Urea Nitrogen 62 mg/dL (8-23); Calcium 9.4 mg/dL (8.5-10.5); Carbon Dioxide 21 mmol/L (22-29); Chloride 93 mmol/L (98-107); Globulin 3.3 g/dL (1.3-4.6); Glucose 147 mg/dL (65-115); Magnesium 1.9 mg/dL (1.7-2.3); Osmolality Calculated 296 mOsm/kg (285-295); Sodium 133 mmol/L (136-145); Total Bilirubin 0.3 mg/dL (0.15-1.2); Total Protein 6.7 g/dL (6.6-8.7)
[2024-05-05 04:05] LABS: Anion Gap 23.9 (5-19); Aspartate Amino Transferase 44 U/L (0-32); Potassium 4.9 mmol/L (3.5-5.1)
[2024-05-05] MEDS: levothyroxine 150 mcg Tablet PO (06:30)
[2024-05-05] MEDS: dexamethasone 10 mg/mL INJ 6 MG IVP (06:30)
[2024-05-05] MEDS: heparin 5,000 unit/mL INJ 1 mL 5000 UNIT SUBCUT (06:30)
[2024-05-05] MEDS: heparin, porcine 1,000 unit/mL INJ 10 mL 1000 UNIT IV (07:30)
--- NOTE | 2024-05-05 07:47 | P.PN_ITS ---
Subjective 2 Subjective: short of breath, weak, cough Medications: Reviewed: Yes Medication Review Details: Current Medications Acetaminophen (Acetaminophen 325 Mg Tablet) 650 mg PO Q6H PRN PRN Reason: Mild/Mod Pain Or Temp >/= 101 Last Admin: 05/05/24 03:23 Dose: 650 mg Albuterol/Ipratropium (Ipratropium-Albuterol 3 Ml Neb) 3 ml INHALATION QID.RESPIRATORY JOCE Last Admin: 05/04/24 20:22 Dose: 3 ml Amiodarone HCl (Amiodarone 200 Mg Tablet) 200 mg PO BID JOCE Last Admin: 05/04/24 17:45 Dose: 200 mg Aspirin (Aspirin 81 Mg Ec Tablet) 81 mg PO DAILY JOCE Last Admin: 05/04/24 09:07 Dose: 81 mg Budesonide (Budesonide 0.5 Mg/2 Ml Neb) 0.5 mg INHALATION BID.RESPIRATORY JOCE Last Admin: 05/04/24 20:23 Dose: 0.5 mg Dexamethasone (Dexamethasone 10 Mg/Ml Inj) 6 mg IVP Q24H JOCE Last Admin: 05/05/24 06:30 Dose: 6 mg Folic Acid (Folic Acid 1 Mg Tablet) 1 mg PO DAILY JOCE Last Admin: 05/04/24 09:07 Dose: 1 mg Glucagon (Glucagon 1 Mg/Ml Kit 1 Ml) 1 mg IM ONCE PRN; Protocol PRN Reason: Adult Acute Hypoglycemia Nursing Prot. Heparin Sodium (Porcine) (Heparin 5,000 Unit/Ml Inj 1 Ml) 5,000 unit SUBCUT Q12H [facility] Last Admin: 05/05/24 06:30 Dose: 5,000 unit Dextrose (D5w) 500 mls @ 0 mls/hr IV ONCE PRN; Protocol PRN Reason: Adult Acute Hypoglycemia Prot Dextrose (D10w) 125 mls @ 750 mls/hr IV PRN PRN; Protocol PRN Reason: Adult Acute Hypoglycemia Nursing Protocol Dextrose (D10w) 250 mls @ 1,000 mls/hr IV PRN PRN; Protocol PRN Reason: Adult Acute Hypoglycemia Nursing Protocol Albumin Human (Albumin) 12.5 gm in 50 mls @ 60 mls/hr IV PRN PRN PRN Reason: Hypotension and/or symptomatic Last Infusion: 05/04/24 17:01 Dose: Infused Vancomycin HCl 500 mg/ Sodium (Chloride) 100 mls @ 200 mls/hr IV Q48H [facility] Last Infusion: 05/04/24 17:01 Dose: Infused Insulin Glargine (Insulin Glargine 100 Units/1 Ml) 5 unit SUBCUT Q24H [facility] Last Admin: 05/04/24 23:04 Dose: 5 unit Insulin Human Lispro (Insulin Lispro 100 Unit/1 Ml) 0 unit SUBCUT TIDWM [facility]; Protocol Last Admin: 05/04/24 17:01 Dose: Not Given Lactulose (Lactulose Oral Liq 20 Gm/30 Ml Udc) 10 gm PO DAILY [facility] Last Admin: 05/04/24 09:07 Dose: 10 gm Levothyroxine Sodium (Levothyroxine 150 Mcg Tablet) 150 mcg PO DAILY@06 [facility] Last Admin: 05/05/24 06:30 Dose: 150 mcg Magnesium Lactate (Magnesium Lactate 84 Mg Tablet) 84 mg PO DAILY@08 [facility] Last Admin: 05/04/24 09:07 Dose: 84 mg Meropenem (Meropenem 500 Mg Sdv) 500 mg IVP Q12H [facility]; Protocol Last Admin: 05/04/24 21:24 Dose: 500 mg Midodrine (Midodrine 5 Mg Tablet) 10 mg PO TID [facility] Last Admin: 05/04/24 21:23 Dose: 10 mg Ondansetron HCl (Ondansetron 2 Mg/Ml Sdv 2 Ml) 4 mg IVP Q8H PRN PRN Reason: vomiting, or N/V if npo Last Admin: 05/05/24 03:23 Dose: 4 mg Pantoprazole Sodium (Pantoprazole 40 Mg Sdv) 40 mg IVP Q24H [facility] Last Admin: 05/04/24 21:24 Dose: 40 mg Sertraline HCl (Sertraline 100 Mg Tablet) 100 mg PO BEDTIME [facility] Last Admin: 05/04/24 21:23 Dose: 100 mg Vitals/I&O/Wt Last Vital Signs Temp 97.8 F 05/05/24 04:00 Pulse 100 05/05/24 06:00 Resp 18 05/05/24 06:00 BP 118/85 05/05/24 06:00 Pulse Ox 97 05/05/24 06:00 O2 Del Method Nasal Cannula 05/05/24 06:00 O2 Flow Rate 3 05/05/24 06:00 FiO2 3 05/05/24 04:00 05/04/24 05/05/24 05/05/24 22:59 06:59 14:59 Intake Total 550 / 1150 120 / 1270 Balance 550 / 1150 120 / 1270 Weight last 48 hrs Weight 86 kg Weight 83.5 kg Weight 86 kg Physical Exam 2 Narrative: SOB in bed, using nasal cannula O2. seen on dialysis Vital signs noted. HEENT normocephalic atraumatic. Neck is supple. Lungs dull bases and ronchi diffusely. Heart irregular with systolic murmur. Abdomen is soft positive bowel sounds. Extremities trace b/l edema. Dialysis access right anterior chest wall permacath. Neuro awake alert oriented x 3. Patient was seen and examined using A/V equipment and nurse examined her. Data 05/05/24 03:25 05/05/24 03:25 A&P Assessment and plan (1) End stage renal disease on dialysis: 73-year-old lady obesity, COPD, pneumonia, heart failure preserved EF, diabetes mellitus. 1. pulm- sob, has covid 19 and a pna -cta- Lungs: Moderate volume loss in the right lower lobe. Mild volume loss in the left lower lobe. Ill-defined coarse reticular opacity in the right mid to lower lung. Dense consolidation and volume loss in the posterior and lateral basal segments of the left lower lobe consistent with segmental atelectasis. Pleural spaces: Mildly loculated moderate size right pleural effusion is decreased in size since 03/30/2024. Small simple dependent left pleural effusion is decreased in size since 03/30/2024. No pneumothorax. Heart: There is mild cardiac enlargement. There is no pericardial effusion. Lymph nodes: There is no mediastinal or hilar lymphadenopathy. hemoptysis likely from pna -cont abx 2. ESRD- HD TTS schedule. as short of breath- we are attempting extra dialysis today 3. Diabetic control. 4. leukocytosis is worsening 5. Mild anemia hemoglobin of 10, acceptable for ESRD - plts jovany to 249. Her thrombocytopenia was likely from infection 6. Chronic atrial fibrillation. 7. TSH of 1.7 8. COPD , pna, covid- still SOB 9. hyponatremia from PNA and ESRD- monitor w/ abx Patient seen and examined using audiovisual equipment and the nurse examined the patient. Consent for hemodialysis obtained from the patient. Consent for telemedicine visit obtained from the patient. Plan Antibiotics and antivirals as per medicine. dialysis today and likely tomorrow Attestations 2 Medical Necessity Statement*: pna, sob, esrd Time Spent in Patient Care: 16 - 35 minutes (>than 50% of time sp ent in counselling and/or direct pt care on unit) . Coding Level of Care Code Acute Code for Chg Fwd Diagnoses End stage renal disease on dialysis N18.6; Z99.2
--- NOTE | 2024-05-05 07:51 | PC.HD ---
Telenephrologist rounding at onset of patient HD treatment. Verbal orders: Monitor patient's tolerance of HD closely, especially with r/t BP. If her pressures begin trending downwards, ok to switch to UF only, as patient is scheduled to receive HD at her outpatient clinic tomorrow.
[2024-05-05] MEDS: lactulose oral liq 20 gm/30 mL UDC 10 GM PO (08:09)
[2024-05-05] MEDS: aspirin 81 mg EC Tablet PO (08:09)
[2024-05-05] MEDS: folic acid 1 mg Tablet PO (08:09)
[2024-05-05] MEDS: amiodarone 200 mg Tablet PO (08:09)
[2024-05-05] MEDS: magnesium lactate 84 mg Tablet PO (08:09)
[2024-05-05] MEDS: midodrine 5 mg TABLET 10 MG PO (08:09)
[2024-05-05 08:17] LABS: Glucose Point of Care 129 mg/dL (70-110)
[2024-05-05] MEDS: budesonide 0.5 mg/2 mL Neb INHALATION (08:25)
[2024-05-05] MEDS: ipratropium-albuterol 3 mL Neb INHALATION (08:25)
--- NOTE | 2024-05-05 08:33 | PC.NURSE ---
Received discharge orders. Delay in discharge since patient is receiving dialysis at this time. Delay in administering morning meropenem dose, will administer after dialysis since meropenem is a dialysable medication.
[2024-05-05] MEDS: metoprolol tartrate 25 mg Tablet 12.5 MG PO (10:18)
--- NOTE | 2024-05-05 11:41 | PC.NURSE ---
Report given to Bridgette at [facility]. Currently waiting on medicaid ride.
[2024-05-05] MEDS: meropenem 500 mg SDV IVP (11:46)
--- NOTE | 2024-05-05 12:11 | PC.SOCIAL ---
IMM Updated Updated pt on IMM. No questions voiced. Provided pt a copy. Initialed, dated, & timed copy in chart.
--- NOTE | 2024-05-05 12:23 | P.DS_ITS ---
Discharge Providers Date of Admission: 04/30/24 20:48 Date of Discharge: May 05, 2024 Attending Provider at Admission: Jace Renee MD Attending Provider at Discharge: Tim Robert MD Primary Care Provider: Donavan Champagne DO Diagnoses at Discharge Discharge Diagnosis (1) End stage renal disease on dialysis: Status: Chronic Reason for Visit Reason for Visit: A FIB, Resp Distress, Covid + Hospital Course Hospital Course 69-year-old female who carries multiple comorbid conditions resident of skilled nursing presented with COVID-19 pneumonia, she was put on remdesivir Decadron, she was kept in ICU because of her multiple comorbid conditions, she was dialyzed Sunday, nephro was consulted because she was hypervolemic patient carries history of chronic hypoxia and uses BiPAP at the facility she is at her baseline oxygen requirement of 3 L, she is being dialyzed today and then we will discharge her back to the facility. She has been afebrile since her admission, will discontinue aggressive and Decadron at the time of discharge. She may resume her amiodarone at 200 mg twice daily regimen along metoprolol. Would only use metoprolol at lowest possible dose. Hemoglobin has been stable along blood pressure. Patient physically not very active at baseline. She also seems to have mild cognitive impairment related to her age. is very involved in her care. Patient is not on anticoagulating agent secondary to history of GI bleed. She is immunocompromise secondary to methotrexate use. Has had multiple admissions in the past. Patient remains full code Physical Exam Narrative: Pleasant cooperative Currently on 3 L Hemodynamic stable A-fib without RVR Distended/bloated abdomen nontender Discharge Data Studies Completed and Pending Completed Studies During Hospitalization Category Date Time Status CT angio chest PE protcl [id number] Stat Cat Scan 05/01/24 06:39 Completed XR chest 1V portable [id number] Stat Exams 04/30/24 18:52 [place] [id number] Routine Ultrasound 05/01/24 06:39 Completed Pending at discharge Category Date Time Status Blood Culture Stat Lab 04/30/24 20:11 Results Complete Blood Count w/Auto AM LABS Lab 05/06/24 04:00 Ordered Complete Blood Count w/Auto AM LABS Lab 05/07/24 04:00 Ordered Comprehensive Metabolic Panel AM LABS Lab 05/06/24 04:00 Ordered Comprehensive Metabolic Panel AM LABS Lab 05/07/24 04:00 Ordered Magnesium AM LABS Lab 05/06/24 04:00 Ordered Magnesium AM LABS Lab 05/07/24 04:00 Ordered Phosphorus AM LABS Lab 05/06/24 04:00 Ordered Phosphorus AM LABS Lab 05/07/24 04:00 Ordered Urinalysis Routine Lab 04/30/24 20:44 Uncollected Radiology Impressions Chest X-Ray 04/30/24 18:52 IMPRESSION: Limited evaluation of the lung parenchyma secondary to rotation. Small right pleural effusion with subjacent atelectasis. Chest CTA 05/01/24 06:39 IMPRESSION: 1. No pulmonary embolism. 2. Decreased bilateral pleural effusions since 03/30/2024. 3. Stable extensive atelectasis in the lower lungs bilaterally, with slightly increased aeration of the right lung since prior CT. Superimposed infection cannot be excluded. Laboratory Results WBC 15.26 10^3/uL (3.29-11.43) H 05/05/24 03:25 RBC 3.21 10^6/uL (3.85-5.65) L 05/05/24 03:25 Hgb 10.00 g/dL (11.27-16.99) L 05/05/24 03:25 Hct 32.4 % (36-47) L 05/05/24 03:25 MCV 100.9 fl (85-98) H 05/05/24 03:25 MCH 31.2 pg (27-33) 05/05/24 03:25 MCHC 30.9 g/dL (30-55) 05/05/24 03:25 RDW 18.7 % (12.1-15.1) H 05/05/24 03:25 Plt Count 275 10^3/cmm (157-399) D 05/05/24 03:25 MPV 10.0 fL (7.4-10.4) 05/05/24 03:25 Neut % (Auto) 86.3 % 05/05/24 03:25 Lymph % (Auto) 2.7 % 05/05/24 03:25 Bureau % (Auto) 5.9 % 05/05/24 03:25 Eos % (Auto) 0.0 % 05/05/24 03:25 Baso % (Auto) 0.3 % 05/05/24 03:25 Neut # (Auto) 13.17 10^3/uL (1.8-7.7) H 05/05/24 03:25 Lymph # (Auto) 0.4 10^3/uL (0.8-4.8) L 05/05/24 03:25 Bureau # (Auto) 0.9 10^3/uL (0.2-0.9) 05/05/24 03:25 Eos # (Auto) 0.0 10^3/uL (0.0-0.8) 05/05/24 03:25 Baso # (Auto) 0.0 10^3/uL (0.0-0.1) 05/05/24 03:25 Nucleated RBC % (auto) 0 % 05/05/24 03:25 Total Counted 100 (0-100) 04/30/24 19:17 Atypical Lymphs % 0.0 % (0-5) 04/30/24 19:17 Absolute Neutrophils 12.0 10^3/cmm (1.4-6.5) H 04/30/24 19:17 Segmented Neutrophils 87 % 04/30/24 19:17 Abs Segm Neuts (Man) 11.4 10/cmm (1.6-7.1) H 04/30/24 19:17 Band Neutrophils 5.0 % 04/30/24 19:17 Abs Band Neuts (Man) 0.7 10^3/cmm (0.0-1.2) 04/30/24 19:17 Absolute Lymphocytes 0.1 10^3/cmm (1.2-3.4) L 04/30/24 19:17 Lymphocytes (Manual) 1 % 04/30/24 19:17 Monocytes (Manual) 2.0 % 04/30/24 19:17 Absolute Monocytes 0.3 10^3/cmm (0.1-0.6) 04/30/24 19:17 Eosinophils (Manual) 1 % 04/30/24 19:17 Absolute Eosinophils 0.1 10^3/cmm (0.0-0.7) 04/30/24 19:17 Basophils (Manual) 0.0 % 04/30/24 19:17 Absolute Basophils 0.0 10^3/cmm (0.0-0.2) 04/30/24 19:17 Metamyelocytes 3.0 % 04/30/24 19:17 Myelocytes 1.0 % 04/30/24 19:17 Nucleated RBCs # 0.0 /100WBC 05/05/24 03:25 Platelet Estimate Normal (Normal) 04/30/24 19:17 Anisocytosis 1+ H 04/30/24 19:17 Macrocytosis 1+ H 04/30/24 19:17 PT 14.20 SECONDS (12.1-14.9) 04/30/24 19:17 INR 1.07 (0.8-1.2) 04/30/24 19:17 D-Dimer 8.38 ug/mLFEU (0-0.59) H 04/30/24 19:17 Specimen Type Arterial 04/30/24 19:01 Sample Site Radial, left 04/30/24 19:01 ABG pH 7.37 (7.35-7.45) 04/30/24 19:01 ABG pCO2 44.2 mmHg (35-45) 04/30/24 19:01 ABG pO2 77.4 mmHg (80.0-100.0) L 04/30/24 19:01 ABG PO2/FiO2 Ratio 154 04/30/24 19:01 ABG HCO3 25.3 mmol/L (22-26) 04/30/24 19:01 ABG Base Excess -0.3 mmol/L (-2.0-2.0) 04/30/24 19:01 Memo Test Pos 04/30/24 19:01 Hematocrit 34.9 % (37-47) L 04/30/24 19:01 Hgb O2 Saturation 93.2 % (95-100) L 04/30/24 19:01 Carboxyhemoglobin 1.6 %THgb (0.4-20.1) 04/30/24 19:01 Methemoglobin 0.5 % (0.4-1.5) 04/30/24 19:01 Total Hemoglobin 11.4 g/dL (12-16) L 04/30/24 19:01 O2 Delivery Device Bipap 04/30/24 19:01 FiO2 50.0 % 04/30/24 19:01 Collision Repairer ID [email or web address] 04/30/24 19:01 Sodium 133 mmol/L (136-145) L 05/05/24 03:25 Potassium 4.9 mmol/L (3.5-5.1) 05/05/24 03:25 Chloride 93 mmol/L (98-107) L 05/05/24 03:25 Carbon Dioxide 21 mmol/L (22-29) L 05/05/24 03:25 Anion Gap 23.9 (5-19) H 05/05/24 03:25 BUN 62 mg/dL (8-23) H 05/05/24 03:25 Creatinine 3.4 mg/dL (0.5-0.9) H 05/05/24 03:25 GFR Calculation Not Reportable 05/05/24 03:25 Glucose 147 mg/dL (65-115) H 05/05/24 03:25 POC Glucose 129 mg/dL (70-110) H 05/05/24 08:05 Estimat Average Glucose 117 04/30/24 19:17 Hemoglobin A1c 5.7 % (4.0-6.0) 04/30/24 19:17 Calculated Osmolality 296 mOsm/kg (285-295) H 05/05/24 03:25 Lactic Acid 2.0 mmol/L (0.5-2.2) 04/30/24 22:59 Calcium 9.4 mg/dL (8.5-10.5) 05/05/24 03:25 Phosphorus 5.0 mg/dL (2.5-4.5) H 05/05/24 03:25 Magnesium 1.9 mg/dL (1.7-2.3) 05/05/24 03:25 Total Bilirubin 0.3 mg/dL (0.15-1.2) 05/05/24 03:25 AST 44 U/L (0-32) H 05/05/24 03:25 ALT 46 U/L (0-33) H 05/05/24 03:25 Alkaline Phosphatase 187 U/L (35-105) H 05/05/24 03:25 Troponin T Baseline 90 ng/L (0-10) H 04/30/24 19:17 Troponin T 120 Minute 90.53 ng/L (0-10) H 04/30/24 22:59 Delta Troponin T 0.53 ABS# (0-10) 04/30/24 22:59 Troponin T Hi Sens 6Hr 85.72 ng/L (0-10) H 05/01/24 01:23 Troponin T Hi Sens 6Hr Delta -4.28 ng/L (0-12) L 05/01/24 01:23 NT-Pro-B Natriuret Pep 76444 pg/mL (0-450) H 04/30/24 19:17 Total Protein 6.7 g/dL (6.6-8.7) 05/05/24 03:25 Albumin 3.4 g/dL (3.5-5.2) L 05/05/24 03:25 Globulin 3.3 g/dL (1.3-4.6) 05/05/24 03:25 25-OH Vitamin D Total 39 ng/mL (30-100) 05/02/24 03:04 Procalcitonin 2.24 ng/mL (0-0.5) H 04/30/24 19:17 TSH 1.71 uIU/mL (0.27-4.20) 04/30/24 19:17 Random Vancomycin 14.8 ug/mL (20.0-40.0) L 05/03/24 06:00 Hep Bs Antigen Non-reactive (Nonreactive) 05/01/24 15:24 Hep Bs Antibody < 3.5 (11.5-1000) L 05/01/24 15:24 Hepatitis C Antibody Non-reactive (Nonreactive) 05/01/24 15:24 Vitals Last Vital Signs Temp 98.2 F 05/05/24 10:58 Pulse 99 05/05/24 10:58 Resp 19 H 05/05/24 10:58 BP 109/62 05/05/24 10:58 Pulse Ox 99 05/05/24 10:32 O2 Del Method Nasal Cannula 05/05/24 10:30 O2 Flow Rate 3 05/05/24 10:30 FiO2 3 05/05/24 04:00 Discharge Plan Discharge Patient Disposition: Xfer SNF Condition: Stable Prescriptions: New doxycycline hyclate 100 mg capsule 100 mg PO BID 7 Days Qty: 14 0RF amoxicillin-pot clavulanate 875-125 mg tablet 1 tab PO BID Qty: 10 0RF metoprolol tartrate 25 mg tablet 12.5 mg PO BID Qty: 60 0RF Rx Instructions: Hold if blood pressure below 110/90 or heart rate below 60 Continued nitroglycerin [Nitrostat] 0.4 mg tablet, sublingual 0.4 mg SUBLINGUAL Q5M PRN (Reason: Chest Pain) Qty: 30 3RF Rx Instructions: MAX 3 DOSES PER EPISODE levothyroxine [Euthyrox] 150 mcg tablet 150 mcg PO DAILY@06 calcium carbonate [Calcium 600] 600 mg calcium (1,500 mg) tablet 600 mg PO DAILY cholecalciferol (vitamin D3) [Vitamin D3] 25 mcg (1,000 unit) Tablet 1,000 unit PO DAILY pantoprazole 40 mg tablet,delayed release (DR/EC) 40 mg PO BID glucose 4 gram tablet,chewable 4 g PO PRN PRN (Reason: Hypoglycemia) Trelegy Ellipta 200-62.5-25 mcg blister with device 1 inh INHALATION DAILY Qty: 28 0RF insulin lispro [Humalog U-100 Insulin] 100 unit/mL Solution See Rx Instructions .ROUTE .COMPLEX MDD 40 Qty: 10 0RF Rx Instructions: per sliding scale with meals 150-200=2 units 201-250=4 units 251-300=6 units 301-350=8 units 351-400=10 units 401-450=12 units meclizine 25 mg tablet 25 mg PO TID PRN (Reason: Nausea And Vomiting) bisacodyl [Dulcolax (bisacodyl)] 10 mg Suppository 10 mg HI DAILY PRN (Reason: if no bm x3 days ) nystatin [Nyamyc] 100,000 unit/gram powder See Rx Instructions .ROUTE .COMPLEX PRN (Reason: Rash) Rx Instructions: as directed every shift as needed (apply between thighs and affected areas twice a day as needed) methotrexate sodium 2.5 mg Tablet 6 mg PO Q7D Hold Instructions: Resume on 05/02/24. Rx Instructions: ON SUNDAY magnesium L-lactate 84 mg tablet extended release 84 mg PO DAILY@08 aspirin 81 mg Tablet,Delayed Release (Dr/Ec) 81 mg PO DAILY Qty: 30 0RF folic acid 1 mg tablet 1 mg PO DAILY melatonin 1 mg tablet 1 mg PO BEDTIME albuterol sulfate 0.63 mg/3 mL Solution For Nebulization 0.63 mg INHALATION TID PRN (Reason: Shortness Of Breath Or Wheezing) polyethylene glycol 3350 [Miralax] 17 gram Powder In Packet 17 g PO DAILY lactulose 10 gram/15 mL (15 mL) Solution 15 ml PO DAILY pyridoxine (vitamin B6) 500 mg Tablet 500 mg PO DAILY bumetanide 2 mg tablet 2 mg PO DAILY Qty: 90 0RF guaifenesin 400 mg tablet 400 mg PO TID PRN (Reason: congestion) Qty: 30 0RF potassium chloride [Klor-Con 10] 10 mEq Tablet Extended Release 10 meq PO DAILY Qty: 30 0RF Calmoseptine 0.44-20.6 % Ointment 1 applic TOPICAL BID PRN (Reason: Bed sore) carica papaya Tablet,Chewable 4 tab PO TIDWM midodrine 10 mg Tablet 10 mg PO TID Rx Instructions: hold if BP is under 140/80 sertraline 100 mg Tablet 100 mg PO BEDTIME lidocaine 5 % Adhesive Patch,Medicated 1 patch TOPICAL BID Rx Instructions: ON for 12 hours in AM, take OFF for 12 hours in PM ondansetron 4 mg tablet,disintegrating 4 mg PO Q6H PRN (Reason: Nausea And Vomiting) Changed amiodarone 200 mg Tablet 200 mg PO BIDWMEAL Qty: 60 0RF Discharge Orders: Discharge Order (Routine); Ordered 05/05/24 Ordered By: Tim Robert Referrals: [facility] [Outside] Donavan Champagne DO [Primary Care Provider] - 4-7 days (Pt will be seen in the skilled nursing.. ) Discharge Diet: Usual diet Discharge Activity: Increase activity as tolerated Patient Instructions: Metoprolol (By mouth), Doxycycline (By mouth), Amoxicillin (By mouth), Dialysis Diet (DC), Hemodialysis (DC), COVID-19 (Coronavirus Disease 2019) (ED) Activity Restrictions/Additional Instructions: Take all medicine as prescribed Continue usual dialysis Resume normal oxygen 3 to 4 L per nasal cannula Return for concerns Discharge Attestations Time Spent in Discharge Care*: greater than 30 min Status at Discharge: Cognitive status at discharge: cognitively intact , Behavioral status at discharge: cooperative , Quality Metrics Clinical Quality Measures [ No reported AMI, CVA or VTE this stay] Coding Level of Care Code Acute Code for Chg Fwd Diagnoses End stage renal disease on dialysis N18.6; Z99.2
[2024-05-05 12:37] LABS: Glucose Point of Care 213 mg/dL (70-110)
[2024-05-05] MEDS: insulin lispro 100 unit/1 mL SUBCUT (13:55)
--- NOTE | 2024-05-05 17:23 | PC.NURSE ---
Patient transferred to [facility]. Report was given to carmen with [facility]. IV removed. No belonings to go with patient. Sent via [facility]
== END 2024-05-05 16:00 | disposition intermediate care facility (04) | DRG 177 ==
LOC: ER 20:02 → ICU 20:48
PROVIDERS: Family Medicine; Internal Medicine; Internal Medicine Nephrology; Admitting Provider Family Medicine; Emergency Provider Emergency Medicine; PCP Internal Medicine; Visit Provider Internal Medicine
DX: U07.1 COVID-19 (principal); I50.33 Acute on chronic diastolic (congestive) heart failure; J12.82 Pneumonia due to coronavirus disease 2019; J96.21 Acute and chronic respiratory failure with hypoxia; N18.6 End stage renal disease; I13.2 Hypertensive heart and chronic kidney disease with heart failure and with stage 5 chronic kidney disease, or end stage renal disease; D84.821 Immunodeficiency due to drugs; J44.1 Chronic obstructive pulmonary disease with (acute) exacerbation; I48.20 Chronic atrial fibrillation, unspecified; E11.22 Type 2 diabetes mellitus with diabetic chronic kidney disease; M06.042 Rheumatoid arthritis without rheumatoid factor, left hand; M06.041 Rheumatoid arthritis without rheumatoid factor, right hand; E66.9 Obesity, unspecified; R79.89 Other specified abnormal findings of blood chemistry; D64.9 Anemia, unspecified; I25.10 Atherosclerotic heart disease of native coronary artery without angina pectoris; G47.30 Sleep apnea, unspecified; E03.9 Hypothyroidism, unspecified; E78.5 Hyperlipidemia, unspecified; F32.9 Major depressive disorder, single episode, unspecified; Z87.891 Personal history of nicotine dependence; Z99.2 Dependence on renal dialysis; Z79.4 Long term (current) use of insulin; Z79.631 Long term (current) use of antimetabolite agent; Z79.82 Long term (current) use of aspirin; Z68.33 Body mass index [BMI] 33.0-33.9, adult; Z87.440 Personal history of urinary (tract) infections; I25.2 Old myocardial infarction; Z86.73 Personal history of transient ischemic attack (TIA), and cerebral infarction without residual deficits
CPT/HCPCS: 36415; 36416; 36600; 71045; 71275; 80048; 80053; 80202; 82306; 82805; 82962; 83036; 83605; 83735; 83880; 84100; 84145; 84443; 84484; 85007; 85025; 85378; 85610; 86706; 86803; 87040; 87340; 90935; 93005; 93970; 94640; 94660; 96365; 96366; 96367; 96372; 96374; 96375; 96376; 99291; J0248; J0283; J1100; J1644; J1650; J1815; J2185; J2405; J2470; J3370; J3490; J7626; P9047; Q3014

== ENCOUNTER 2024-05-11 15:05 | Emergency (ER) | payer MEDICARE, MEDICAID, SELFPAY ==
[2024-05-11] VITALS (8 sets, daily range): BP systolic 100–140; BP diastolic 55–89; PULSE 87–95; RESP 12–22; TEMP 36.7; O2SAT 96–100; BMI 29.9
--- NOTE | 2024-05-11 15:09 | ECG_ITS ---
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 Measurements Intervals [place] Rate: 92 P: 0 SD: 0 QRS: 266 QRSD: 186 T: 84 QT: 403 QTc: 499 Interpretive Statements ATRIAL FIBRILLATION RIGHT AXIS DEVIATION [QRS AXIS > 100] RIGHT BUNDLE BRANCH BLOCK [120+ ms QRS DURATION, UPRIGHT V1, 40+ ms S IN I/aVL/V4/V5/V6] POSSIBLE ANTERIOR MYOCARDIAL INFARCTION , OF INDETERMINATE AGE [30 ms Q WAVE IN V3/V4, OR R < 0.2 mV IN V4] Compared to ECG 05/01/2024 16:07:46 Myocardial infarct finding now present T-wave abnormality no longer present Possible ischemia no longer present Electronically Signed On 05-11-2024 17:43:40 CDT by Victoriano White M.D. [id number]
--- NOTE | 2024-05-11 15:23 | XRR_ITS ---
PROCEDURE INFORMATION: Exam: XR Chest Exam date and time: 05/11/2024 3:35 PM Age: 73 years old Clinical indication: Shortness of breath; Additional info: SOB TECHNIQUE: Imaging protocol: Radiologic exam of the chest. Views: 1 view. COMPARISON: CT angio chest PE protcl [id number] 05/01/2024 4:24 PM FINDINGS: Tubes, catheters and devices: Dialysis catheter enters from the right and terminates near the atrial caval junction. Lungs: Bibasilar atelectasis or infiltrates, right greater than left. Mild vascular prominence, fluid overload may be present. Pleural spaces: Small bilateral pleural effusions, right greater than left. Heart/Mediastinum: See Vasculature finding. Vasculature: Mild cardiomegaly and uncoiling of the thoracic aorta. Bones/joints: Unremarkable. XR/XR chest 1V portable [id number] IMPRESSION: Bilateral effusions with bibasilar atelectasis or infiltrate, fluid overload suspected.
[2024-05-11 15:41] LABS: Basophils % 0.1 %; Eosinophils % 0.2 %; Lymphocytes # 0.3 10^3/uL (0.8-4.8); Lymphocytes % 2.2 %; Mean Corpuscular Hemoglobin 31.1 pg (27-33); Mean Corpuscular Volume 103.7 fl (85-98); Monocytes # 0.4 10^3/uL (0.2-0.9); Monocytes % 3.4 %; Neutrophils # 11.27 10^3/uL (1.8-7.7); Neutrophils % 93.3 %; Nucleated Red Blood Cells % 0 %; Platelet Count 161 10^3/cmm (157-399); Red Blood Count 2.99 10^6/uL (3.85-5.65); Red Cell Distribution Width 17.5 % (12.1-15.1); White Blood Count 12.09 10^3/uL (3.29-11.43)
[2024-05-11 16:02] LABS: Troponin(5th) Baseline 66 ng/L (0-10)
[2024-05-11 16:19] LABS: Alanine Aminotransferase 32 U/L (0-33); Albumin Level 3.2 g/dL (3.5-5.2); Alkaline Phosphatase 184 U/L (35-105); Anion Gap 15.8 (5-19); Aspartate Amino Transferase 33 U/L (0-32); Blood Urea Nitrogen 32 mg/dL (8-23); Carbon Dioxide 26 mmol/L (22-29); Chloride 101 mmol/L (98-107); Globulin 2.7 g/dL (1.3-4.6); Glucose 190 mg/dL (65-115); Osmolality Calculated 298 mOsm/kg (285-295); Potassium 4.8 mmol/L (3.5-5.1); Sodium 138 mmol/L (136-145); Total Bilirubin 0.5 mg/dL (0.15-1.2); Total Protein 5.9 g/dL (6.6-8.7)
[2024-05-11 16:21] LABS: Creatinine Clr Calc Pharmacy 25.6524
[2024-05-11 16:40] LABS: NT Pro B Type Natriuretic Pept 31919 pg/mL (0-450)
--- NOTE | 2024-05-11 17:25 | ECG_ITS ---
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 Measurements Intervals [place] Rate: 99 P: 0 [place]: 0 QRS: 270 QRSD: 182 T: 92 QT: 358 QTc: 460 Interpretive Statements ATRIAL FIBRILLATION RIGHT AXIS DEVIATION [QRS AXIS > 100] RIGHT BUNDLE BRANCH BLOCK [120+ ms QRS DURATION, UPRIGHT V1, 40+ ms S IN I/aVL/V4/V5/V6] POSSIBLE ANTERIOR MYOCARDIAL INFARCTION , OF INDETERMINATE AGE [30 ms Q WAVE IN V3/V4, OR R < 0.2 mV IN V4] MODERATE T-WAVE ABNORMALITY, CONSIDER LATERAL ISCHEMIA [-0.1+ mV T-WAVE IN I/aVL/V5/V6] Compared to ECG 05/11/2024 15:09:07 T-wave abnormality now present Possible ischemia now present Myocardial infarct finding still present Electronically Signed On 05-11-2024 17:44:01 CDT by Victoriano White M.D. [id number]
[2024-05-11 17:38] LABS: Troponin 5 2HR 64.11 ng/L (0-10); Troponin 5 2HR Delta -1.89 ABS# (0-10)
--- NOTE | 2024-05-11 17:41 | W.ED.SOB ---
HPI - SOB/Dyspnea General: Chief Complaint: Shortness of Breath/Dyspnea Stated Complaint: SOB Time Seen by Provider: 05/11/24 15:10 History of Present Illness: HPI Narrative: This patient is a 73 year old presenting with shortness of breath. She is a dialysis patient who was dialyzed yesterday as normal - she says it was a normal run. She was in the hospital with shortness of breath and covid last week. She is chronically on 3 L oxygen. She was hypoxic for EMS and arrived on 6 liter with sat of 98%. She also had an episode of chest pain during transport. She started having shortness of breath and the chest pain this morning. She is not having chest pain on my initial evaluation. She has had some cough, no fever. No vomiting. She is currently residing in a [facility]. She has extensive medical history including myasthenia gravis. Related Data Home Medications Medication Instructions Recorded Confirmed cholecalciferol (vitamin D3) 25 1,000 unit PO DAILY 10/12/19 05/01/24 mcg (1,000 unit) tablet (Vitamin D3) calcium carbonate (Calcium 600) 600 mg PO DAILY 06/27/21 05/01/24 levothyroxine 150 mcg tablet 150 mcg PO DAILY@06 06/27/21 05/01/24 (Euthyrox) pantoprazole 40 mg tablet,delayed 40 mg PO BID 09/13/21 05/01/24 release glucose 4 gram chewable tablet 4 g PO PRN PRN Hypoglycemia 06/17/23 05/01/24 bisacodyl 10 mg rectal suppository 10 mg TX DAILY PRN if no bm x3 days 09/30/23 05/01/24 (Dulcolax (bisacodyl)) meclizine 25 mg tablet 25 mg PO TID PRN Nausea And 09/30/23 05/01/24 Vomiting nystatin 100,000 unit/gram topical See Rx Instructions .Route 09/30/23 05/01/24 powder ([facility]) .COMPLEX PRN Rash magnesium L-lactate 84 mg 84 mg PO DAILY@08 10/12/23 05/01/24 tablet,extended release methotrexate sodium 2.5 mg tablet 6 mg PO Q7D 10/12/23 05/01/24 folic acid 1 mg tablet 1 mg PO DAILY 01/09/24 05/01/24 melatonin 1 mg tablet 1 mg PO BEDTIME 01/09/24 05/01/24 lidocaine 5 % topical patch 1 patch topical BID 03/17/24 05/01/24 sertraline 100 mg tablet 100 mg PO BEDTIME 03/17/24 05/01/24 ondansetron 4 mg disintegrating 4 mg PO Q6H PRN Nausea And Vomiting 03/28/24 05/01/24 tablet albuterol sulfate 0.63 mg/3 mL 0.63 mg inhalation TID PRN 04/22/24 05/01/24 solution for nebulization Shortness Of Breath Or Wheezing lactulose 10 gram/15 mL (15 mL) 15 ml PO DAILY 04/22/24 05/01/24 oral solution polyethylene glycol 3350 17 gram 17 g PO DAILY 04/22/24 05/01/24 oral powder packet (Miralax) pyridoxine (vitamin B6) 500 mg 500 mg PO DAILY 04/22/24 05/01/24 tablet carica papaya 4 tab PO TIDWM 05/01/24 05/01/24 menthol 0.44 %-zinc oxide 20.6 % 1 applic topical BID PRN Bed sore 05/01/24 05/01/24 topical ointment (Calmoseptine) midodrine 10 mg tablet 10 mg PO TID 05/01/24 05/01/24 Previous Rx's Medication Instructions Recorded nitroglycerin 0.4 mg sublingual 0.4 mg sublingual Q5M PRN Chest 02/08/21 tablet (Nitrostat) Pain #30 tabs fluticasone fur. 200 mcg-umeclid 1 inh inhalation DAILY #28 ea 06/20/23 62.5 mcg-vilant 25 mcg inhalat.powder (Trelegy Ellipta) insulin lispro 100 unit/mL See Rx Instructions .Route 08/17/23 subcutaneous solution (Humalog .COMPLEX #10 mL U-100 Insulin) aspirin 81 mg tablet,delayed 81 mg PO DAILY #30 tabs 10/19/23 release bumetanide 2 mg tablet 2 mg PO DAILY #90 tabs 04/25/24 guaifenesin 400 mg tablet 400 mg PO TID PRN congestion #30 04/25/24 tabs potassium chloride 10 mEq 10 meq PO DAILY #30 tabs 04/25/24 tablet,extended release (Klor-Con) amiodarone 200 mg tablet 200 mg PO BIDWMEAL #60 tabs 05/05/24 amoxicillin 875 mg-potassium 1 tab PO BID #10 tabs 05/05/24 clavulanate 125 mg tablet metoprolol tartrate 25 mg tablet 12.5 mg (1/2 x 25 mg) PO BID #60 05/05/24 tabs Allergies Allergy/AdvReac Type Severity Reaction Status Date / Time adhesive tape Allergy rash Verified 05/11/24 15:26 cinnamon Allergy sinus Verified 05/11/24 15:26 codeine Allergy unknown Verified 05/11/24 15:26 cedar Allergy sinus Uncoded 05/11/24 15:26 pine Allergy sinus Uncoded 05/11/24 15:26 pork food Allergy ADR-Nausea Uncoded 05/11/24 15:26 PFSH ED PFSH: Medical History NSTEMI (non-ST elevated myocardial infarction) History of cardiovascular stress test 09/2023 History of stroke Diabetes mellitus, type II Myasthenia gravis listed in [facility] records Amber albicans infection 2022 Clostridioides difficile diarrhea 12/18 Inflammatory arthritis Sleep apnea in adult noncompliant with CPAP/BiPAP in outpt setting (machine feels different) Colon polyp Gastric polyposis UGIB (upper gastrointestinal bleed) 2020 Chronic atrial fibrillation not on chronic anticoagulation due to recurrent falls and prior GI bleed Congestive heart failure (CHF) Orthostatic hypotension Chronic post-traumatic stress disorder (PTSD) Major depressive disorder, recurrent episode, moderate with anxious distress Duodenal ulcer due to bacteria 08/16 Coronary artery disease Chronic knee pain Chronic low back pain COVID-14 August 2020 Seronegative rheumatoid arthritis of both hands Osteoarthritis of knees, bilateral Fibromyalgia Lung nodule Unstable angina Urgency incontinence Left renal mass COPD (chronic obstructive pulmonary disease) Oxygen dependent, 3-3.5 L at baseline Hypothyroidism Liver cirrhosis Hyperlipidemia Hypertension Recurrent UTI Surgical History S/P dialysis catheter insertion 07/2023 History of colonoscopy 06/23/22 History of esophagogastroduodenoscopy (EGD) 06/23/22 History of cholecystectomy History of thyroid surgery History of cardiac cath History of hysterectomy History of knee replacement Family History Other CAD (coronary artery disease) Cancer Denies family history of Anesthesia complication Bleeding disorder Social History Smoking and tobacco/nicotine status: former use of tobacco/nicotine Quit status (tobacco/nicotine): has quit using Year quit tobacco: 2005 Second hand smoke exposure: No Alcohol intake: never Substance/Drug Use: never Adopted: No Caregiver/support person: No Lives independently: No Household members: spouse Housing: Custodial Marital status: Current occupational status: retired Current gender identity: Female Physical Exam Const: COMMON NORMALS: no acute distress, patient oriented x3, no limitations and alert GENERAL APPEARANCE: cooperative and comfortable NUTRITIONAL APPEARANCE: obese morbidly obese HENMT: HEAD & SCALP: normal to inspection FACE & SINUS: normal facial exam Eye: GENERAL EYE: appearance normal, both eyes and all related structures Neck/C-Spine: COMMON NORMALS: supple and no meningeal signs Chest: COMMONS NORMALS: normal inspection of the chest GI: COMMON NORMALS: Normal to inspection, nondistended, normoactive bowel sounds present, Soft to palpation and non-tender INSPECTION: Yes normal to inspection AUSCULTATION: Yes normoactive bowel sounds PALPATION: Yes Soft to palpation Back/Pelvis: COMMON NORMALS: thoracic and lumbar spine normal to inspection Extremity: COMMON NORMALS: normal to inspection Neuro: COMMON NORMALS: patient oriented x3, moves all extremities, no focal motor deficits and no sensory deficits noted SENSORIUM/ORIENTATION: Yes alert MENINGEAL SIGNS: Yes no meningeal signs Psych: COMMON NORMALS: mental status grossly normal, cooperative and normal affect Skin: COMMON NORMALS: no rashes or lesions noted and turgor normal GENERAL SKIN EXAM: no rashes or lesions noted and turgor normal Course Vital Signs: Vital signs: Vital Signs Temperature 98.1 F 05/11/24 15:07 Pulse Rate 88 05/11/24 18:00 Respiratory Rate 16 05/11/24 18:00 Blood Pressure 103/62 05/11/24 18:00 Pulse Oximetry 100 05/11/24 18:00 Oxygen Delivery Me thod Nasal Cannula 05/11/24 15:07 Oxygen Flow Rate 6 05/11/24 15:07 MDM - SOB/Dyspnea Medical Decision Making Initial presentation with shortness of breath - now tolerating her baseline 3 L oxygen with sats in the high 90's. The patient reports feeling better. Her work up shows labs and xrays at baseline. She has a baseline elevation of her troponin but her delta today is negative. I think she is appropriate to go back to her [facility] tonight. Lab Data 05/11/24 15:35 05/11/24 15:35 Labs/Radiology: Radiology Impressions Chest X-Ray 05/11/24 15:23 IMPRESSION: Bilateral effusions with bibasilar atelectasis or infiltrate, fluid overload suspected. Laboratory Results WBC 12.09 10^3/uL (3.29-11.43) H 05/11/24 15:35 RBC 2.99 10^6/uL (3.85-5.65) L 05/11/24 15:35 Hgb 9.30 g/dL (11.27-16.99) L 05/11/24 15:35 Hct 31.0 % (36-47) L 05/11/24 15:35 MCV 103.7 fl (85-98) H 05/11/24 15:35 MCH 31.1 pg (27-33) 05/11/24 15:35 MCHC 30.0 g/dL (30-55) 05/11/24 15:35 RDW 17.5 % (12.1-15.1) H 05/11/24 15:35 Plt Count 161 10^3/cmm (157-399) 05/11/24 15:35 MPV 10.0 fL (7.4-10.4) 05/11/24 15:35 Neut % (Auto) 93.3 % 05/11/24 15:35 Lymph % (Auto) 2.2 % 05/11/24 15:35 Gem % (Auto) 3.4 % 05/11/24 15:35 Eos % (Auto) 0.2 % 05/11/24 15:35 Baso % (Auto) 0.1 % 05/11/24 15:35 Neut # (Auto) 11.27 10^3/uL (1.8-7.7) H 05/11/24 15:35 Lymph # (Auto) 0.3 10^3/uL (0.8-4.8) L 05/11/24 15:35 Gem # (Auto) 0.4 10^3/uL (0.2-0.9) 05/11/24 15:35 Eos # (Auto) 0.0 10^3/uL (0.0-0.8) 05/11/24 15:35 Baso # (Auto) 0.0 10^3/uL (0.0-0.1) 05/11/24 15:35 Nucleated RBC % (auto) 0 % 05/11/24 15:35 Nucleated RBCs # 0.0 /100WBC 05/11/24 15:35 Sodium 138 mmol/L (136-145) 05/11/24 15:35 Potassium 4.8 mmol/L (3.5-5.1) 05/11/24 15:35 Chloride 101 mmol/L (98-107) 05/11/24 15:35 Carbon Dioxide 26 mmol/L (22-29) 05/11/24 15:35 Anion Gap 15.8 (5-19) 05/11/24 15:35 BUN 32 mg/dL (8-23) H 05/11/24 15:35 Creatinine 2.0 mg/dL (0.5-0.9) H 05/11/24 15:35 GFR Calculation Not Reportable 05/11/24 15:35 Glucose 190 mg/dL (65-115) H 05/11/24 15:35 Calculated Osmolality 298 mOsm/kg (285-295) H 05/11/24 15:35 Calcium 8.0 mg/dL (8.5-10.5) L 05/11/24 15:35 Total Bilirubin 0.5 mg/dL (0.15-1.2) 05/11/24 15:35 AST 33 U/L (0-32) H 05/11/24 15:35 ALT 32 U/L (0-33) 05/11/24 15:35 Alkaline Phosphatase 184 U/L (35-105) H 05/11/24 15:35 Troponin T Baseline 66 ng/L (0-10) H 05/11/24 15:35 Troponin T 120 Minute 64.11 ng/L (0-10) H 05/11/24 17:16 Delta Troponin T -1.89 ABS# (0-10) L 05/11/24 17:16 NT-Pro-B Natriuret Pep 46778 pg/mL (0-450) H 05/11/24 15:35 Total Protein 5.9 g/dL (6.6-8.7) L 05/11/24 15:35 Albumin 3.2 g/dL (3.5-5.2) L 05/11/24 15:35 Globulin 2.7 g/dL (1.3-4.6) 05/11/24 15:35 All radiology interpretation(s) finalized by discharge Discharge Plan Discharge Patient Disposition: [facility] Clinical Impression: Hypoxia, End stage renal disease on dialysis, Pleural effusion, bilateral, Breath shortness Condition: Stable Prescriptions: No Action nitroglycerin [Nitrostat] 0.4 mg tablet, sublingual 0.4 mg SUBLINGUAL Q5M PRN (Reason: Chest Pain) Qty: 30 3RF Rx Instructions: MAX 3 DOSES PER EPISODE levothyroxine [Euthyrox] 150 mcg tablet 150 mcg PO DAILY@06 calcium carbonate [Calcium 600] 600 mg calcium (1,500 mg) tablet 600 mg PO DAILY cholecalciferol (vitamin D3) [Vitamin D3] 25 mcg (1,000 unit) Tablet 1,000 unit PO DAILY pantoprazole 40 mg tablet,delayed release (DR/EC) 40 mg PO BID glucose 4 gram tablet,chewable 4 g PO PRN PRN (Reason: Hypoglycemia) Trelegy Ellipta 200-62.5-25 mcg blister with device 1 inh INHALATION DAILY Qty: 28 0RF insulin lispro [Humalog U-100 Insulin] 100 unit/mL Solution See Rx Instructions .ROUTE .COMPLEX MDD 40 Qty: 10 0RF Rx Instructions: per sliding scale with meals 150-200=2 units 201-250=4 units 251-300=6 units 301-350=8 units 351-400=10 units 401-450=12 units meclizine 25 mg tablet 25 mg PO TID PRN (Reason: Nausea And Vomiting) bisacodyl [Dulcolax (bisacodyl)] 10 mg Suppository 10 mg TX DAILY PRN (Reason: if no bm x3 days ) nystatin [Nyamyc] 100,000 unit/gram powder See Rx Instructions .ROUTE .COMPLEX PRN (Reason: Rash) Rx Instructions: as directed every shift as needed (apply between thighs and affected areas twice a day as needed) methotrexate sodium 2.5 mg Tablet 6 mg PO Q7D Hold Instructions: Resume on 05/02/24. Rx Instructions: ON SUNDAY magnesium L-lactate 84 mg tablet extended release 84 mg PO DAILY@08 aspirin 81 mg Tablet,Delayed Release (Dr/Ec) 81 mg PO DAILY Qty: 30 0RF folic acid 1 mg tablet 1 mg PO DAILY melatonin 1 mg tablet 1 mg PO BEDTIME albuterol sulfate 0.63 mg/3 mL Solution For Nebulization 0.63 mg INHALATION TID PRN (Reason: Shortness Of Breath Or Wheezing) polyethylene glycol 3350 [Miralax] 17 gram Powder In Packet 17 g PO DAILY lactulose 10 gram/15 mL (15 mL) Solution 15 ml PO DAILY pyridoxine (vitamin B6) 500 mg Tablet 500 mg PO DAILY bumetanide 2 mg tablet 2 mg PO DAILY Qty: 90 0RF guaifenesin 400 mg tablet 400 mg PO TID PRN (Reason: congestion) Qty: 30 0RF potassium chloride [Klor-Con 10] 10 mEq Tablet Extended Release 10 meq PO DAILY Qty: 30 0RF Calmoseptine 0.44-20.6 % Ointment 1 applic TOPICAL BID PRN (Reason: Bed sore) carica papaya Tablet,Chewable 4 tab PO TIDWM midodrine 10 mg Tablet 10 mg PO TID Rx Instructions: hold if BP is under 140/80 amoxicillin-pot clavulanate 875-125 mg tablet 1 tab PO BID Qty: 10 0RF metoprolol tartrate 25 mg tablet 12.5 mg PO BID Qty: 60 0RF Rx Instructions: Hold if blood pressure below 110/90 or heart rate below 60 amiodarone 200 mg Tablet 200 mg PO BIDWMEAL Qty: 60 0RF sertraline 100 mg Tablet 100 mg PO BEDTIME lidocaine 5 % Adhesive Patch,Medicated 1 patch TOPICAL BID Rx Instructions: ON for 12 hours in AM, take OFF for 12 hours in PM ondansetron 4 mg tablet,disintegrating 4 mg PO Q6H PRN (Reason: Nausea And Vomiting) Referrals: Donavan Champagne DO [Primary Care Provider] - Coding Level of Care Code ED Manager Asset for Dougie Samson
[2024-05-11 21:49] LABS: Troponin 5 6HR 65.28 ng/L (0-10)
[2024-05-11 21:55] LABS: Troponin 5 6HR Delta -0.72 ng/L (0-12)
== END 2024-05-12 01:15 | disposition home or self-care (01) ==
PROVIDERS: Emergency Medicine; Emergency Provider Emergency Medicine; PCP Internal Medicine
DX: J90 Pleural effusion, not elsewhere classified (principal); R09.02 Hypoxemia; E11.22 Type 2 diabetes mellitus with diabetic chronic kidney disease; I13.2 Hypertensive heart and chronic kidney disease with heart failure and with stage 5 chronic kidney disease, or end stage renal disease; I50.9 Heart failure, unspecified; N18.6 End stage renal disease; Z99.2 Dependence on renal dialysis; I25.2 Old myocardial infarction; I25.10 Atherosclerotic heart disease of native coronary artery without angina pectoris; J44.9 Chronic obstructive pulmonary disease, unspecified; E78.5 Hyperlipidemia, unspecified; Z87.891 Personal history of nicotine dependence; Z79.4 Long term (current) use of insulin; Z79.82 Long term (current) use of aspirin
CPT/HCPCS: 36415; 71045; 80053; 83880; 84484; 85025; 93005; 99285

== ENCOUNTER 2024-05-15 10:23 | Emergency (ER) | payer MEDICARE, MEDICAID, SELFPAY ==
[2024-05-15] VITALS (15 sets, daily range): BP systolic 91–127; BP diastolic 55–86; PULSE 72–87; RESP 18–22; TEMP 36.8; O2SAT 81–99; BMI 29.9
--- NOTE | 2024-05-15 10:26 | XR_ITS ---
WS: [id number] Portable AP upright chest, 05/15/2024 Clinical Data: cp Comparison: Portable chest, 05/11/2024 Findings: The bilateral pleural effusions, more on the right than the left remain the same. There is pulmonary vascular prominence bilaterally. The heart is enlarged. There are no nodules, masses or charlie dence of pneumonia. No pneumothorax is present. The aortic arch and descending thoracic aorta show ca lcification. There is a right dialysis catheter unchanged. There are monitor leads. XR/XR chest 1V portable [id number] Impression: No change in bilateral pleural effusions with probable pulmonary vascular conge stion.
--- NOTE | 2024-05-15 10:27 | ECG_ITS ---
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 Measurements Intervals [place] Rate: 77 P: 0 NE: 0 QRS: 266 QRSD: 188 T: 72 QT: 459 QTc: 522 Interpretive Statements ATRIAL FIBRILLATION RIGHT AXIS DEVIATION [QRS AXIS > 100] RIGHT BUNDLE BRANCH BLOCK [120+ ms QRS DURATION, UPRIGHT V1, 40+ ms S IN I/aVL/V4/V5/V6] POSSIBLE ANTEROSEPTAL MYOCARDIAL INFARCTION , OF INDETERMINATE AGE [30 ms Q WAVE IN V1-V4] Compared to ECG 05/11/2024 17:25:07 T-wave abnormality no longer present Possible ischemia no longer present Myocardial infarct finding still present Electronically Signed On 05-15-2024 14:00:04 CDT by Keisha Coronel M.D. [email or web address]
--- NOTE | 2024-05-15 10:29 | ED_ITS ---
HPI - Chest Pain 2 General: Chief Complaint: Chest Pain Stated Complaint: cp Time Seen by Provider: 05/15/24 10:26 Source: patient and EMS Mode of arrival: EMS Limitations: no limitations History of Present Illness: 73-year-old female is very well-known to the ER has extensive medical history including end-stage renal disease on dialysis. She states she has been having sharp chest pains for the last 2 days. She did receive dialysis on Sunday and did not go today. She has chronic dyspnea she is on 3 L oxygen at home she denies any fever denies any cough denies any vomiting Associated symptoms: Deny abdominal pain, dyspnea, fever(s), nausea or vomiting Related Data Home Medications Medication Instructions Recorded Confirmed cholecalciferol (vitamin D3) 25 1,000 unit PO DAILY 10/12/19 05/15/24 mcg (1,000 unit) tablet (Vitamin D3) calcium carbonate (Calcium 600) 600 mg PO DAILY 06/27/21 05/15/24 levothyroxine 150 mcg tablet 150 mcg PO DAILY@06/27/21 05/15/24 (Euthyrox) pantoprazole 40 mg tablet,delayed 40 mg PO BID 09/13/21 05/15/24 release glucose 4 gram chewable tablet 4 g PO PRN PRN Hypoglycemia 06/17/23 05/15/24 bisacodyl 10 mg rectal suppository 10 mg RI DAILY PRN if no bm x3 days 09/30/23 05/15/24 (Dulcolax (bisacodyl)) meclizine 25 mg tablet 25 mg PO TID PRN Nausea And 09/30/23 05/15/24 Vomiting nystatin 100,000 unit/gram topical See Rx Instructions .Route 09/30/23 05/15/24 powder ([facility]) .COMPLEX PRN Rash magnesium L-lactate 84 mg 84 mg PO DAILY@08 10/12/23 05/15/24 tablet,extended release methotrexate sodium 2.5 mg tablet 6 mg PO Q7D 10/12/23 05/15/24 folic acid 1 mg tablet 1 mg PO DAILY 01/09/24 05/15/24 melatonin 1 mg tablet 1 mg PO BEDTIME 01/09/24 05/15/24 lidocaine 5 % topical patch 1 patch topical BID 03/17/24 05/15/24 sertraline 100 mg tablet 100 mg PO BEDTIME 03/17/24 05/15/24 ondansetron 4 mg disintegrating 4 mg PO Q6H PRN Nausea And Vomiting 03/28/24 05/15/24 tablet albuterol sulfate 0.63 mg/3 mL 0.63 mg inhalation TID PRN 04/22/24 05/15/24 solution for nebulization Shortness Of Breath Or Wheezing lactulose 10 gram/15 mL (15 mL) 15 ml PO DAILY 04/22/24 05/15/24 oral solution polyethylene glycol 3350 17 gram 17 g PO DAILY 04/22/24 05/15/24 oral powder packet (Miralax) pyridoxine (vitamin B6) 500 mg 500 mg PO DAILY 04/22/24 05/15/24 tablet carica papaya 4 tab PO TIDWM 05/01/24 05/15/24 menthol 0.44 %-zinc oxide 20.6 % 1 applic topical BID PRN Bed sore 05/01/24 05/15/24 topical ointment (Calmoseptine) midodrine 10 mg tablet 10 mg PO TID 05/01/24 05/15/24 lorazepam 1 mg tablet (Ativan) 1 mg PO BID PRN Anxiety 05/15/24 05/15/24 Previous Rx's Medication Instructions Recorded nitroglycerin 0.4 mg sublingual 0.4 mg sublingual Q5M PRN Chest 02/08/21 tablet (Nitrostat) Pain #30 tabs fluticasone fur. 200 mcg-umeclid 1 inh inhalation DAILY #28 ea 06/20/23 62.5 mcg-vilant 25 mcg inhalat.powder (Trelegy Ellipta) insulin lispro 100 unit/mL See Rx Instructions .Route 08/17/23 subcutaneous solution (Humalog .COMPLEX #10 mL U-100 Insulin) aspirin 81 mg tablet,delayed 81 mg PO DAILY #30 tabs 10/19/23 release bumetanide 2 mg tablet 2 mg PO DAILY #90 tabs 04/25/24 guaifenesin 400 mg tablet 400 mg PO TID PRN congestion #30 04/25/24 tabs potassium chloride 10 mEq 10 meq PO DAILY #30 tabs 04/25/24 tablet,extended release (Klor-Con) amiodarone 200 mg tablet 200 mg PO BIDWMEAL #60 tabs 05/05/24 amoxicillin 875 mg-potassium 1 tab PO BID #10 tabs 05/05/24 clavulanate 125 mg tablet metoprolol tartrate 25 mg tablet 12.5 mg (1/2 x 25 mg) PO BID #60 05/05/24 tabs Allergies Allergy/AdvReac Type Severity Reaction Status Date / Time adhesive tape Allergy rash Verified 05/11/24 15:26 cinnamon Allergy sinus Verified 05/11/24 15:26 codeine Allergy unknown Verified 05/11/24 15:26 cedar Allergy sinus Uncoded 05/11/24 15:26 pine Allergy sinus Uncoded 05/11/24 15:26 pork food Allergy ADR-Nausea Uncoded 05/11/24 15:26 Review of Systems 2 Const: Denies: fever(s), chills, body aches or change in appetite Eyes: Denies: blurry vision or eye discomfort ENMT: Denies: throat pain or dental pain Card: Reports: chest pain Resp: Denies: dyspnea GI: Denies: abdominal pain, nausea, vomiting or diarrhea Musc: Denies: neck pain or back pain Skin/Breast: Denies: rash Neuro: Denies: headache(s) PFSH ED 2 PFSH: Medical History NSTEMI (non-ST elevated myocardial infarction) History of cardiovascular stress test 09/2023 History of stroke Diabetes mellitus, type II Myasthenia gravis listed in [facility] records Amber albicans infection 2022 Clostridioides difficile diarrhea 12/18 Inflammatory arthritis Sleep apnea in adult noncompliant with CPAP/BiPAP in outpt setting (machine feels different) Colon polyp Gastric polyposis UGIB (upper gastrointestinal bleed) 2020 Chronic atrial fibrillation not on chronic anticoagulation due to recurrent falls and prior GI bleed Congestive heart failure (CHF) Orthostatic hypotension Chronic post-traumatic stress disorder (PTSD) Major depressive disorder, recurrent episode, moderate with anxious distress Duodenal ulcer due to bacteria 08/16 Coronary artery disease Chronic knee pain Chronic low back pain COVID-14 August 2020 Seronegative rheumatoid arthritis of both hands Osteoarthritis of knees, bilateral Fibromyalgia Lung nodule Unstable angina Urgency incontinence Left renal mass COPD (chronic obstructive pulmonary disease) Oxygen dependent, 3-3.5 L at baseline Hypothyroidism Liver cirrhosis Hyperlipidemia Hypertension Recurrent UTI Surgical History S/P dialysis catheter insertion 07/2023 History of colonoscopy 06/23/22 History of esophagogastroduodenoscopy (EGD) 06/23/22 History of cholecystectomy History of thyroid surgery History of cardiac cath History of hysterectomy History of knee replacement Family History Other CAD (coronary artery disease) Cancer Denies family history of Anesthesia complication Bleeding disorder Social History Smoking and tobacco/nicotine status: former use of tobacco/nicotine Quit status (tobacco/nicotine): has quit using Year quit tobacco: 2005 Second hand smoke exposure: No Alcohol intake: never Substance/Drug Use: never Adopted: No Caregiver/support person: No Lives independently: No Household members: spouse Housing: [facility] Marital status: Current occupational status: retired Current gender identity: Female Physical Exam 2 Const: COMMON NORMALS: patient oriented x3 HENMT: COMMON NORMALS: normocephalic and atraumatic HEAD & SCALP: n ormocephalic and atraumatic Eye: COMMON NORMALS: Equal, round and reactive pupils present and EOMs intact bilaterally PUPIL: Yes Equal, round and reactive pupils present Neck/C-Spine: COMMON NORMALS: full ROM and supple Chest: COMMONS NORMALS: normal inspection of the chest and normal palpation of entire chest wall Resp: COMMON NORMALS: normal respiratory effort, No retractions, No use of accessory muscles and clear to auscultation bilaterally AUSCULTATION: clear to auscultation bilaterally Cardio: COMMON NORMALS: regular rate and No murmurs present (Cardio) RATE: regular rate RHYTHM: abnormal rhythm irregularly irregular Extremity: COMMON NORMALS: normal to inspection and full ROM Neuro: COMMON NORMALS: patient oriented x3, moves all extremities and no focal motor deficits Psych: COMMON NORMALS: mental status grossly normal, Normal thought process present and cooperative THOUGHT PROCESS: Normal thought process present Skin: COMMON NORMALS: no rashes or lesions noted and no wounds GENERAL SKIN EXAM: no rashes or lesions noted Course 2 Vital Signs: Vital signs: Vital Signs Temperature 98.3 F 05/15/24 10:31 Pulse Rate 78 05/15/24 13:30 Respiratory Rate 22 H 05/15/24 13:30 Blood Pressure 119/55 05/15/24 13:30 Pulse Oximetry 97 05/15/24 14:00 Oxygen Delivery Me thod Nasal Cannula 05/15/24 14:00 Oxygen Flow Rate 3 05/15/24 14:00 MDM - Chest Pain Medical Decision Making Patient presents for chest pains atypical in nature repeat troponin here is negative she is well-appearing here no signs of ACS she stable for discharge follow-up with PCP return if worsening. Medical Records I reviewed the patient's medical records. Lab Data I reviewed the patient's lab results. 05/15/24 10:55 05/15/24 10:55 Radiology Impressions Chest X-Ray 05/15/24 10:26 Impression: No change in bilateral pleural effusions with probable pulmonary vascular congestion. Laboratory Results WBC 7.84 10^3/uL (3.29-11.43) 05/15/24 10:55 RBC 2.59 10^6/uL (3.85-5.65) L 05/15/24 10:55 Hgb 8.00 g/dL (11.27-16.99) L 05/15/24 10:55 Hct 26.7 % (36-47) L 05/15/24 10:55 MCV 103.1 fl (85-98) H 05/15/24 10:55 MCH 30.9 pg (27-33) 05/15/24 10:55 MCHC 30.0 g/dL (30-55) 05/15/24 10:55 RDW 17.4 % (12.1-15.1) H 05/15/24 10:55 Plt Count 156 10^3/cmm (157-399) L 05/15/24 10:55 MPV 9.9 fL (7.4-10.4) 05/15/24 10:55 Neut % (Auto) 92.4 % 05/15/24 10:55 Lymph % (Auto) 5.0 % 05/15/24 10:55 [place] % (Auto) 1.1 % 05/15/24 10:55 Eos % (Auto) 0.4 % 05/15/24 10:55 Baso % (Auto) 0.3 % 05/15/24 10:55 Neut # (Auto) 7.25 10^3/uL (1.8-7.7) 05/15/24 10:55 Lymph # (Auto) 0.4 10^3/uL (0.8-4.8) L 05/15/24 10:55 [place] # (Auto) 0.1 10^3/uL (0.2-0.9) L 05/15/24 10:55 Eos # (Auto) 0.0 10^3/uL (0.0-0.8) 05/15/24 10:55 Baso # (Auto) 0.0 10^3/uL (0.0-0.1) 05/15/24 10:55 Nucleated RBC % (auto) 0 % 05/15/24 10:55 Nucleated RBCs # 0.0 /100WBC 05/15/24 10:55 PT 14.70 SECONDS (12.1-14.9) 05/15/24 10:55 INR 1.11 (0.8-1.2) 05/15/24 10:55 Sodium 137 mmol/L (136-145) 05/15/24 10:55 Potassium 5.2 mmol/L (3.5-5.1) H 05/15/24 10:55 Chloride 100 mmol/L (98-107) 05/15/24 10:55 Carbon Dioxide 26 mmol/L (22-29) 05/15/24 10:55 Anion Gap 16.2 (5-19) 05/15/24 10:55 BUN 51 mg/dL (8-23) H 05/15/24 10:55 Creatinine 2.5 mg/dL (0.5-0.9) H 05/15/24 10:55 GFR Calculation Not Reportable 05/15/24 10:55 Glucose 153 mg/dL (65-115) H 05/15/24 10:55 Calculated Osmolality 301 mOsm/kg (285-295) H 05/15/24 10:55 Calcium 8.5 mg/dL (8.5-10.5) 05/15/24 10:55 Total Bilirubin 0.6 mg/dL (0.15-1.2) 05/15/24 10:55 AST 40 U/L (0-32) H 05/15/24 10:55 ALT 37 U/L (0-33) H 05/15/24 10:55 Alkaline Phosphatase 202 U/L (35-105) H 05/15/24 10:55 Troponin T Baseline 58 ng/L (0-10) H 05/15/24 10:55 Troponin T 120 Minute 54.61 ng/L (0-10) H 05/15/24 13:10 Delta Troponin T -3.39 ABS# (0-10) L 05/15/24 13:10 NT-Pro-B Natriuret Pep 95260 pg/mL (0-450) H 05/15/24 10:55 Total Protein 5.7 g/dL (6.6-8.7) L 05/15/24 10:55 Albumin 3.0 g/dL (3.5-5.2) L 05/15/24 10:55 Globulin 2.7 g/dL (1.3-4.6) 05/15/24 10:55 Lipase 14 U/L (13-60) 05/15/24 10:55 All radiology interpretation(s) finalized by discharge EKG Data EKG 1: I personally reviewed and interpreted this EKG as follows: EKG interpretation date: 05/15/24 EKG interpretation time: 10:27 Interpretation: afib hr [address] or t wave abnormalities qrs 188 qtc 491 EKG 2: I personally reviewed and interpreted this EKG as follows: EKG interpretation date: 05/15/24 EKG interpretation time: 12:40 Interpretation: afib hr [address] elevation qrs 193 qtc 503 Discharge Plan Discharge Patient Disposition: Home Clinical Impression: Chest pain Condition: Stable Prescriptions: No Action nitroglycerin [Nitrostat] 0.4 mg tablet, sublingual 0.4 mg SUBLINGUAL Q5M PRN (Reason: Chest Pain) Qty: 30 3RF Rx Instructions: MAX 3 DOSES PER EPISODE levothyroxine [Euthyrox] 150 mcg tablet 150 mcg PO DAILY@06 calcium carbonate [Calcium 600] 600 mg calcium (1,500 mg) tablet 600 mg PO DAILY cholecalciferol (vitamin D3) [Vitamin D3] 25 mcg (1,000 unit) Tablet 1,000 unit PO DAILY pantoprazole 40 mg tablet,delayed release (DR/EC) 40 mg PO BID glucose 4 gram tablet,chewable 4 g PO PRN PRN (Reason: Hypoglycemia) Trelegy Ellipta 200-62.5-25 mcg blister with device 1 inh INHALATION DAILY Qty: 28 0RF insulin lispro [Humalog U-100 Insulin] 100 unit/mL Solution See Rx Instructions .ROUTE .COMPLEX MDD 40 Qty: 10 0RF Rx Instructions: per sliding scale with meals 150-200=2 units 201-250=4 units 251-300=6 units 301-350=8 units 351-400=10 units 401-450=12 units meclizine 25 mg tablet 25 mg PO TID PRN (Reason: Nausea And Vomiting) bisacodyl [Dulcolax (bisacodyl)] 10 mg Suppository 10 mg RI DAILY PRN (Reason: if no bm x3 days ) nystatin [Nyamyc] 100,000 unit/gram powder See Rx Instructions .ROUTE .COMPLEX PRN (Reason: Rash) Rx Instructions: as directed every shift as needed (apply between thighs and affected areas twice a day as needed) methotrexate sodium 2.5 mg Tablet 6 mg PO Q7D Hold Instructions: Resume on 05/02/24. Rx Instructions: ON SUNDAY magnesium L-lactate 84 mg tablet extended release 84 mg PO DAILY@08 aspirin 81 mg Tablet,Delayed Release (Dr/Ec) 81 mg PO DAILY Qty: 30 0RF folic acid 1 mg tablet 1 mg PO DAILY melatonin 1 mg tablet 1 mg PO BEDTIME albuterol sulfate 0.63 mg/3 mL Solution For Nebulization 0.63 mg INHALATION TID PRN (Reason: Shortness Of Breath Or Wheezing) polyethylene glycol 3350 [Miralax] 17 gram Powder In Packet 17 g PO DAILY lactulose 10 gram/15 mL (15 mL) Solution 15 ml PO DAILY pyridoxine (vitamin B6) 500 mg Tablet 500 mg PO DAILY bumetanide 2 mg tablet 2 mg PO DAILY Qty: 90 0RF guaifenesin 400 mg tablet 400 mg PO TID PRN (Reason: congestion) Qty: 30 0RF potassium chloride [Klor-Con 10] 10 mEq Tablet Extended Release 10 meq PO DAILY Qty: 30 0RF menthol-zinc oxide [Calmoseptine] 0.44-20.6 % Ointment 1 applic TOPICAL BID PRN (Reason: Bed sore) carica papaya Tablet,Chewable 4 tab PO TIDWM midodrine 10 mg Tablet 10 mg PO TID Rx Instructions: hold if BP is under 140/80 amoxicillin-pot clavulanate 875-125 mg tablet 1 tab PO BID Qty: 10 0RF metoprolol tartrate 25 mg tablet 12.5 mg PO BID Qty: 60 0RF Rx Instructions: Hold if blood pressure below 110/90 or heart rate below 60 amiodarone 200 mg Tablet 200 mg PO BIDWMEAL Qty: 60 0RF sertraline 100 mg Tablet 100 mg PO BEDTIME lidocaine 5 % Adhesive Patch,Medicated 1 patch TOPICAL BID Rx Instructions: ON for 12 hours in AM, take OFF for 12 hours in PM ondansetron 4 mg tablet,disintegrating 4 mg PO Q6H PRN (Reason: Nausea And Vomiting) Ativan 1 mg tablet 1 mg PO BID PRN (Reason: Anxiety) Discharge Orders: Discharge ED (Routine); Ordered 05/15/24 Ordered By: Karma Garner Referrals: Donavan Champagne DO [Primary Care Provider] - 4-7 days Discharge Diet: Advance as tolerated Discharge Activity: Resume usual activity Patient Instructions: Chest Pain (ED) Coding Level of Care Code ED [employer] for Dougie Samson
[2024-05-15 11:05] LABS: Basophils % 0.3 %; Eosinophils % 0.4 %; Hematocrit 26.7 % (36-47); Lymphocytes # 0.4 10^3/uL (0.8-4.8); Mean Corpuscular Hemoglobin 30.9 pg (27-33); Mean Corpuscular Volume 103.1 fl (85-98); Mean Platelet Volume 9.9 fL (7.4-10.4); Monocytes # 0.1 10^3/uL (0.2-0.9); Monocytes % 1.1 %; Neutrophils # 7.25 10^3/uL (1.8-7.7); Neutrophils % 92.4 %; Nucleated Red Blood Cells % 0 %; Platelet Count 156 10^3/cmm (157-399); Red Blood Count 2.59 10^6/uL (3.85-5.65); Red Cell Distribution Width 17.4 % (12.1-15.1); White Blood Count 7.84 10^3/uL (3.29-11.43)
[2024-05-15 11:15] LABS: INR 1.11 (0.8-1.2)
[2024-05-15 11:21] LABS: Troponin(5th) Baseline 58 ng/L (0-10)
[2024-05-15 11:31] LABS: Alanine Aminotransferase 37 U/L (0-33); Alkaline Phosphatase 202 U/L (35-105); Anion Gap 16.2 (5-19); Aspartate Amino Transferase 40 U/L (0-32); Blood Urea Nitrogen 51 mg/dL (8-23); Calcium 8.5 mg/dL (8.5-10.5); Carbon Dioxide 26 mmol/L (22-29); Chloride 100 mmol/L (98-107); Creatinine Clr Calc Pharmacy 20.5219; Globulin 2.7 g/dL (1.3-4.6); Glucose 153 mg/dL (65-115); Lipase 14 U/L (13-60); Osmolality Calculated 301 mOsm/kg (285-295); Potassium 5.2 mmol/L (3.5-5.1); Sodium 137 mmol/L (136-145); Total Bilirubin 0.6 mg/dL (0.15-1.2); Total Protein 5.7 g/dL (6.6-8.7)
[2024-05-15 11:52] LABS: NT Pro B Type Natriuretic Pept 36913 pg/mL (0-450)
--- NOTE | 2024-05-15 12:40 | ECG_ITS ---
[facility] Test Date: 2024-05-15 Pat Name: Myesha Parker Department: Room: Gender: Female Readiness Paraprofessional: : [id number] Requested By: Karma Garner Order Number: [id number] Wilbur MD: Keisha Coronel M.D. Measurements Intervals Doon Rate: 76 P: 0 GA: 0 QRS: 262 QRSD: 193 T: 67 QT: 473 QTc: 533 Interpretive Statements ATRIAL FIBRILLATION RIGHT AXIS DEVIATION [QRS AXIS > 100] RIGHT BUNDLE BRANCH BLOCK [120+ ms QRS DURATION, UPRIGHT V1, 40+ ms S IN I/aVL/V4/V5/V6] POSSIBLE ANTEROSEPTAL MYOCARDIAL INFARCTION , OF INDETERMINATE AGE [30 ms Q WAVE IN V1-V4] Compared to ECG 05/15/2024 10:27:25 No significant changes Electronically Signed On 05-15-2024 14:12:09 CDT by Keisha Coronel M.D. [id number]
--- NOTE | 2024-05-15 13:12 | PC.NURSE ---
pt on 4L NC, baseline is 2 to 3. Hx CPOD. sat 99% on 4L NC, O2 lowered to 3L NC, sat at 98%.
[2024-05-15 13:41] LABS: Troponin 5 2HR 54.61 ng/L (0-10)
[2024-05-15 13:43] LABS: Troponin 5 2HR Delta -3.39 ABS# (0-10)
[2024-05-15] MEDS: HYDROcodone-acetaminophen 5-325 mg Tablet 1 TAB PO (13:49)
--- NOTE | 2024-05-15 14:17 | PC.NURSE ---
dc paperwork given to pt and pt . pt states she's bed bound, non ambulatory, requires oxygen. pt transport paper filmed out and handed to registration at 1425. pt aware of working on transport.
--- NOTE | 2024-05-15 19:34 | PC.NURSE ---
called [facility], spoke to mesfin about pt dc and back to [facility].
== END 2024-05-15 19:17 | disposition home or self-care (01) ==
PROVIDERS: Emergency Provider Emergency Medicine; PCP Internal Medicine
DX: R07.9 Chest pain, unspecified (principal); Z79.82 Long term (current) use of aspirin; Z79.4 Long term (current) use of insulin; Z87.891 Personal history of nicotine dependence; I25.2 Old myocardial infarction; Z86.73 Personal history of transient ischemic attack (TIA), and cerebral infarction without residual deficits; E11.9 Type 2 diabetes mellitus without complications; I11.0 Hypertensive heart disease with heart failure; I50.9 Heart failure, unspecified; I25.10 Atherosclerotic heart disease of native coronary artery without angina pectoris; J44.9 Chronic obstructive pulmonary disease, unspecified; E78.5 Hyperlipidemia, unspecified
CPT/HCPCS: 36415; 71045; 80053; 83690; 83880; 84484; 85025; 85610; 93005; 99285

== ENCOUNTER 2024-05-19 06:04 | Observation (INO) | payer MEDICARE, MEDICAID, SELFPAY ==
[2024-05-19] VITALS (20 sets, daily range): BP systolic 92–147; BP diastolic 50–102; PULSE 85–108; RESP 14–31; TEMP 36.2–37.1; O2SAT 90–100; BMI 34.2; BMI 32.0
--- NOTE | 2024-05-19 06:06 | W.ED.SOB ---
HPI - SOB/Dyspnea General: Chief Complaint: Shortness of Breath/Dyspnea Stated Complaint: SOB Time Seen by Provider: 05/19/24 06:05 History of Present Illness: HPI Narrative: 73-year-old female with known history of end-stage renal disease atrial fibrillation diabetes mellitus congestive heart failure presents emergency room with complaints of shortness of breath. Patient is chronically on oxygen at 3 L by nasal cannula. She is not anticoagulated due to previous GI bleeds recent hospitalization for COVID. She presents this morning with complaints of shortness of breath no significant chest pain. Elevated oxygen sats have all been normal. Patient denies any hemoptysis. Associated symptoms: Deny abdominal pain, chest pain or fever(s) Related Data Home Medications Medication Instructions Recorded Confirmed cholecalciferol (vitamin D3) 25 1,000 unit PO DAILY 10/12/19 05/19/24 mcg (1,000 unit) tablet (Vitamin D3) calcium carbonate (Calcium 600) 600 mg PO DAILY 06/27/21 05/19/24 levothyroxine 150 mcg tablet 150 mcg PO DAILY@06/27/21 05/19/24 (Euthyrox) pantoprazole 40 mg tablet,delayed 40 mg PO BID 09/13/21 05/19/24 release glucose 4 gram chewable tablet 4 g PO PRN PRN Hypoglycemia 06/17/23 05/19/24 bisacodyl 10 mg rectal suppository 10 mg [place] DAILY PRN if no bm x3 days 09/30/23 05/19/24 (Dulcolax (bisacodyl)) meclizine 25 mg tablet 25 mg PO TID PRN Nausea And 09/30/23 05/19/24 Vomiting nystatin 100,000 unit/gram topical See Rx Instructions .Route 09/30/23 05/19/24 powder ([facility]) .COMPLEX PRN Rash magnesium L-lactate 84 mg 84 mg PO DAILY@08 10/12/23 05/19/24 tablet,extended release methotrexate sodium 2.5 mg tablet 6 mg PO Q7D 10/12/23 05/19/24 folic acid 1 mg tablet 1 mg PO DAILY 01/09/24 05/19/24 melatonin 1 mg tablet 1 mg PO BEDTIME 01/09/24 05/19/24 lidocaine 5 % topical patch 1 patch topical BID 03/17/24 05/19/24 sertraline 100 mg tablet 100 mg PO BEDTIME 03/17/24 05/19/24 ondansetron 4 mg disintegrating 4 mg PO Q6H PRN Nausea And Vomiting 03/28/24 05/19/24 tablet albuterol sulfate 0.63 mg/3 mL 0.63 mg inhalation TID PRN 04/22/24 05/19/24 solution for nebulization Shortness Of Breath Or Wheezing lactulose 10 gram/15 mL (15 mL) 15 ml PO DAILY 04/22/24 05/19/24 oral solution polyethylene glycol 3350 17 gram 17 g PO DAILY 04/22/24 05/19/24 oral powder packet (Miralax) pyridoxine (vitamin B6) 500 mg 500 mg PO DAILY 04/22/24 05/19/24 tablet carica papaya 4 tab PO TIDWM 05/01/24 05/19/24 menthol 0.44 %-zinc oxide 20.6 % 1 applic topical BID PRN Bed sore 05/01/24 05/19/24 topical ointment (Calmoseptine) midodrine 10 mg tablet 10 mg PO TID 05/01/24 05/19/24 lorazepam 1 mg tablet (Ativan) 1 mg PO BID PRN Anxiety 05/15/24 05/19/24 acetaminophen 325 mg tablet 650 mg PO Q6H PRN pain/increased 05/19/24 05/19/24 temp Previous Rx's Medication Instructions Recorded nitroglycerin 0.4 mg sublingual 0.4 mg sublingual Q5M PRN Chest 02/08/21 tablet (Nitrostat) Pain #30 tabs fluticasone fur. 200 mcg-umeclid 1 inh inhalation DAILY #28 ea 06/20/23 62.5 mcg-vilant 25 mcg inhalat.powder (Trelegy Ellipta) insulin lispro 100 unit/mL See Rx Instructions .Route 08/17/23 subcutaneous solution (Humalog .COMPLEX #10 mL U-100 Insulin) aspirin 81 mg tablet,delayed 81 mg PO DAILY #30 tabs 10/19/23 release bumetanide 2 mg tablet 2 mg PO DAILY #90 tabs 04/25/24 guaifenesin 400 mg tablet 400 mg PO TID PRN congestion #30 04/25/24 tabs potassium chloride 10 mEq 10 meq PO DAILY #30 tabs 04/25/24 tablet,extended release (Klor-Con) amiodarone 200 mg tablet 200 mg PO BIDWMEAL #60 tabs 05/05/24 metoprolol tartrate 25 mg tablet 12.5 mg (1/2 x 25 mg) PO BID #60 05/05/24 tabs Allergies Allergy/AdvReac Type Severity Reaction Status Date / Time adhesive tape Allergy rash Verified 05/11/24 15:26 cinnamon Allergy sinus Verified 05/11/24 15:26 codeine Allergy unknown Verified 05/11/24 15:26 cedar Allergy sinus Uncoded 05/11/24 15:26 pine Allergy sinus Uncoded 05/11/24 15:26 pork food Allergy ADR-Nausea Uncoded 05/11/24 15:26 Review of Systems Const: Denies: fever(s) or chills Card: Denies: chest pain Resp: Reports: dyspnea GI: Denies: abdominal pain : Denies: dysuria, urinary frequency or urinary urgency Musc: Denies: neck pain or back pain Skin/Breast: Denies: rash PFSH ED PFSH: Medical History Breath shortness Atrial fibrillation NSTEMI (non-ST elevated myocardial infarction) History of cardiovascular stress test 09/2023 History of stroke Diabetes mellitus, type II Myasthenia gravis listed in [facility] records Amber albicans infection 2022 Clostridioides difficile diarrhea 12/18 Inflammatory arthritis Sleep apnea in adult noncompliant with CPAP/BiPAP in outpt setting (machine feels different) Colon polyp Gastric polyposis UGIB (upper gastrointestinal bleed) 2020 Chronic atrial fibrillation not on chronic anticoagulation due to recurrent falls and prior GI bleed Congestive heart failure (CHF) Orthostatic hypotension Chronic post-traumatic stress disorder (PTSD) Major depressive disorder, recurrent episode, moderate with anxious distress Duodenal ulcer due to bacteria 08/16 Coronary artery disease Chronic knee pain Chronic low back pain COVID-14 August 2020 Seronegative rheumatoid arthritis of both hands Osteoarthritis of knees, bilateral Fibromyalgia Lung nodule Unstable angina Urgency incontinence Left renal mass COPD (chronic obstructive pulmonary disease) Oxygen dependent, 3-3.5 L at baseline Hypothyroidism Liver cirrhosis Hyperlipidemia Hypertension Recurrent UTI Surgical History S/P dialysis catheter insertion 07/2023 History of colonoscopy 06/23/22 History of esophagogastroduodenoscopy (EGD) 06/23/22 History of cholecystectomy History of thyroid surgery History of cardiac cath History of hysterectomy History of knee replacement Family History Other CAD (coronary artery disease) Cancer Denies family history of Anesthesia complication Bleeding disorder Social History Smoking and tobacco/nicotine status: former use of tobacco/nicotine Quit status (tobacco/nicotine): has quit using Year quit tobacco: 2005 Second hand smoke exposure: No Alcohol intake: never Substance/Drug Use: never Adopted: No Caregiver/support person: No Lives independently: No Household members: spouse Housing: [facility] Marital status: Current occupational status: retired Current gender identity: Female Physical Exam Const: GENERAL APPEARANCE: cooperative and comfortable ORIENTATION/CONSCIOUSNESS: Yes awake HENMT: COMMON NORMALS: normocephalic, atraumatic and hearing grossly normal bilaterally HEAD & SCALP: normocephalic and atraumatic Resp: COMMON NORMALS: normal respiratory effort, No retractions and No use of accessory muscles AUSCULTATION: crackles Cardio: COMMON NORMALS: regular rate RATE: regular rate RHYTHM: abnormal rhythm irregularly irregular GI: COMMON NORMALS: Soft to palpation and No hepatosplenomegaly present AUSCULTATION: Yes normoactive bowel sounds PALPATION: Yes Soft to palpation, No Tenderness to palpation present (GI), No Guarding due to palpation present (GI) and Yes No hepatosplenomegaly present Extremity: COMMON NORMALS: normal to inspection, capillary refill normal, no clubbing, cyanosis or edema, no calf tenderness and no pedal edema Skin: COMMON NORMALS: no rashes or lesions noted GENERAL SKIN EXAM: no rashes or lesions noted Course Vital Signs: Vital signs: Vital Signs Temperature 97.2 F L 05/19/24 14:35 Pulse Rate 105 H 05/19/24 14:35 Respiratory Rate 18 05/19/24 14:35 Blood Pressure 138/73 05/19/24 14:35 Pulse Oximetry 98 05/19/24 13:57 Oxygen Delivery Me thod Nasal Cannula 05/19/24 10:17 Oxygen Flow Rate 3 05/19/24 06:29 MDM - SOB/Dyspnea Medical Decision Making Patient has slight increased effusions and signs of heart failure failure. No leukocytosis I do not believe she has pneumonia at this point. She is mildly hyperkalemic she does need dialysis today will admit for exacerbation of COPD hyperkalemia and consult nephrology for dialysis discussed with hospitalist orders written Medical Records I reviewed the patient's medical records. Lab Data I reviewed the patient's lab results. 05/19/24 06:28 05/19/24 06:28 Labs/Radiology: Radiology Impressions Chest X-Ray 05/19/24 06:14 IMPRESSION: 1. Cardiomegaly with bilateral infiltrates and effusions. Findings are worse on today's exam when compared to prior exam from 05/11/2024. Laboratory Results WBC 5.73 10^3/uL (3.29-11.43) 05/19/24 06:28 RBC 2.61 10^6/uL (3.85-5.65) L 05/19/24 06:28 Hgb 8.20 g/dL (11.27-16.99) L 05/19/24 06:28 Hct 26.6 % (36-47) L 05/19/24 06:28 MCV 101.9 fl (85-98) H 05/19/24 06:28 MCH 31.4 pg (27-33) 05/19/24 06:28 MCHC 30.8 g/dL (30-55) 05/19/24 06:28 RDW 17.6 % (12.1-15.1) H 05/19/24 06:28 Plt Count 108 10^3/cmm (157-399) L 05/19/24 06:28 MPV 10.0 fL (7.4-10.4) 05/19/24 06:28 Neut % (Auto) 89.5 % 05/19/24 06:28 Lymph % (Auto) 6.8 % 05/19/24 06:28 Saunders % (Auto) 1.4 % 05/19/24 06:28 Eos % (Auto) 1.4 % 05/19/24 06:28 Baso % (Auto) 0.2 % 05/19/24 06:28 Neut # (Auto) 5.13 10^3/uL (1.8-7.7) 05/19/24 06:28 Lymph # (Auto) 0.4 10^3/uL (0.8-4.8) L 05/19/24 06:28 Saunders # (Auto) 0.1 10^3/uL (0.2-0.9) L 05/19/24 06:28 Eos # (Auto) 0.1 10^3/uL (0.0-0.8) 05/19/24 06:28 Baso # (Auto) 0.0 10^3/uL (0.0-0.1) 05/19/24 06:28 Nucleated RBC % (auto) 0 % 05/19/24 06:28 Nucleated RBCs # 0.0 /100WBC 05/19/24 06:28 ESR 77 mm/hr (0-15) H 05/19/24 06:28 Sodium 134 mmol/L (136-145) L 05/19/24 06:28 Potassium 5.4 mmol/L (3.5-5.1) H 05/19/24 06:28 Chloride 98 mmol/L (98-107) 05/19/24 06:28 Carbon Dioxide 26 mmol/L (22-29) 05/19/24 06:28 Anion Gap 15.4 (5-19) 05/19/24 06:28 BUN 44 mg/dL (8-23) H 05/19/24 06:28 Creatinine 2.4 mg/dL (0.5-0.9) H 05/19/24 06:28 GFR Calculation Not Reportable 05/19/24 06:28 Glucose 111 mg/dL (65-115) 05/19/24 06:28 Calculated Osmolality 290 mOsm/kg (285-295) 05/19/24 06:28 Calcium 8.5 mg/dL (8.5-10.5) 05/19/24 06:28 Total Bilirubin 0.5 mg/dL (0.15-1.2) 05/19/24 06:28 AST 55 U/L (0-32) H 05/19/24 06:28 ALT 44 U/L (0-33) H 05/19/24 06:28 Alkaline Phosphatase 242 U/L (35-105) H 05/19/24 06:28 Troponin T Baseline 51 ng/L (0-10) H 05/19/24 06:28 Troponin T 120 Minute 49.97 ng/L (0-10) H 05/19/24 08:24 Delta Troponin T -1.03 ABS# (0-10) L 05/19/24 08:24 NT-Pro-B Natriuret Pep 86395 pg/mL (0-450) H 05/19/24 06:28 Total Protein 5.8 g/dL (6.6-8.7) L 05/19/24 06:28 Albumin 2.9 g/dL (3.5-5.2) L 05/19/24 06:28 Globulin 2.9 g/dL (1.3-4.6) 05/19/24 06:28 Procalcitonin 0.80 ng/mL (0-0.5) H 05/19/24 06:28 Urine Color Yellow (Yellow) 05/19/24 10:16 Urine Appearance Cloudy (CLEAR) A 05/19/24 10:16 Urine pH 5.0 (5-7) 05/19/24 10:16 Ur Specific Buena 1.013 (1.005-1.030) 05/19/24 10:16 Urine Protein Trace (Negative) A 05/19/24 10:16 Urine Glucose (UA) Negative (Normal) 05/19/24 10:16 Urine Ketones Negative (Negative) 05/19/24 10:16 Urine Blood Negative (Negative) 05/19/24 10:16 Urine Nitrate Negative (Negative) 05/19/24 10:16 Urine Bilirubin Negative (Negative) 05/19/24 10:16 Urine Urobilinogen 1.0 mg/dL (Negative) 05/19/24 10:16 Ur Leukocyte Esterase 1+ (Negative) A 05/19/24 10:16 Urine RBC 0-2 /hpf (0-2) 05/19/24 10:16 Urine WBC 21-50 /hpf (0-5) H 05/19/24 10:16 Ur Squamous Epith Cells 0-5 /hpf (0-5) 05/19/24 10:16 Amorphous Sediment Not Reportable 05/19/24 10:16 Urine Bacteria None seen /hpf (NONE) 05/19/24 10:16 Hyaline Casts 150.59 /lpf 05/19/24 10:16 Hep Bs Antigen Non-reactive (Nonreactive) 09/23/24 06:28 Hep Bs Antibody < 3.5 (11.5-1000) L 05/19/24 06:28 Hep B Core Total Ab Non-reactive (Nonreactive) 05/19/24 06:28 Hepatitis C Antibody Non-reactive (Nonreactive) 05/19/24 06:28 All radiology interpretation(s) finalized by discharge Discharge Plan Discharge Patient Disposition: Admitted As Inpatient Admit Provider: Delores Marte Clinical Impression: Congestive heart failure, Diabetes mellitus, type II, End stage renal disease on dialysis, Severe pulmonary hypertension, Hyperkalemia Condition: Stable Coding Level of Care Code ED Beam Department Supervisor for Dougie Samson
--- NOTE | 2024-05-19 06:14 | XRR_ITS ---
PROCEDURE INFORMATION: Exam: XR Chest Exam date and time: 05/19/2024 6:21 AM Age: 73 years old Clinical indication: Cough and dyspnea; Additional info: Dyspnea/cough TECHNIQUE: Imaging protocol: Radiologic exam of the chest. Views: 1 view. COMPARISON: CR (CHEST, ) 05/11/2024 3:35 PM FINDINGS: Tubes, catheters and devices: Dual-lumen catheter is present with tips overlying the SVC. Lungs: There are bilateral infiltrates and effusions. Findings are likely related to pulmonary edema. Pleural spaces: There are bilateral pleural effusions slightly greater on the right. Heart/Mediastinum: The heart is enlarged. Bones/joints: Unremarkable. XR/XR chest 1V portable [id number] IMPRESSION: 1. Cardiomegaly with bilateral infiltrates and effusions. Findings are worse on today's exam when compared to prior exam from 05/11/2024.
--- NOTE | 2024-05-19 06:18 | ECG_ITS ---
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 Measurements Intervals [place] Rate: 96 P: 0 NE: 0 QRS: 269 QRSD: 186 T: 85 QT: 431 QTc: 546 Interpretive Statements ATRIAL FIBRILLATION RIGHT AXIS DEVIATION [QRS AXIS > 100] RIGHT BUNDLE BRANCH BLOCK [120+ ms QRS DURATION, UPRIGHT V1, 40+ ms S IN I/aVL/V4/V5/V6] POSSIBLE SEPTAL MYOCARDIAL INFARCTION , OF INDETERMINATE AGE [30 ms Q WAVE IN V1/V2] Compared to ECG 05/15/2024 12:40:51 No significant changes Electronically Signed On 05-19-2024 23:28:00 CDT by Keisha Coronel M.D. [id number]
[2024-05-19 06:47] LABS: Basophils % 0.2 %; Eosinophils # 0.1 10^3/uL (0.0-0.8); Eosinophils % 1.4 %; Hematocrit 26.6 % (36-47); Lymphocytes # 0.4 10^3/uL (0.8-4.8); Lymphocytes % 6.8 %; Mean Corpuscular HGB Conc 30.8 g/dL (30-55); Mean Corpuscular Hemoglobin 31.4 pg (27-33); Mean Corpuscular Volume 101.9 fl (85-98); Monocytes # 0.1 10^3/uL (0.2-0.9); Monocytes % 1.4 %; Neutrophils # 5.13 10^3/uL (1.8-7.7); Neutrophils % 89.5 %; Nucleated Red Blood Cells % 0 %; Platelet Count 108 10^3/cmm (157-399); Red Blood Count 2.61 10^6/uL (3.85-5.65); Red Cell Distribution Width 17.6 % (12.1-15.1); White Blood Count 5.73 10^3/uL (3.29-11.43)
[2024-05-19 06:56] LABS: Erythrocyte Sedimentation Rate 77 mm/hr (0-15)
[2024-05-19 07:07] LABS: Alanine Aminotransferase 44 U/L (0-33); Albumin Level 2.9 g/dL (3.5-5.2); Alkaline Phosphatase 242 U/L (35-105); Blood Urea Nitrogen 44 mg/dL (8-23); Calcium 8.5 mg/dL (8.5-10.5); Carbon Dioxide 26 mmol/L (22-29); Chloride 98 mmol/L (98-107); Creatinine Clr Calc Pharmacy 22.8853; Globulin 2.9 g/dL (1.3-4.6); Glucose 111 mg/dL (65-115); Osmolality Calculated 290 mOsm/kg (285-295); Sodium 134 mmol/L (136-145); Total Bilirubin 0.5 mg/dL (0.15-1.2); Total Protein 5.8 g/dL (6.6-8.7); Troponin(5th) Baseline 51 ng/L (0-10)
[2024-05-19 07:08] LABS: Anion Gap 15.4 (5-19); Aspartate Amino Transferase 55 U/L (0-32); Potassium 5.4 mmol/L (3.5-5.1)
[2024-05-19 07:37] LABS: NT Pro B Type Natriuretic Pept 43665 pg/mL (0-450)
--- NOTE | 2024-05-19 08:15 | ECG_ITS ---
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 Measurements Intervals [place] Rate: 86 P: 0 MS: 0 QRS: -88 QRSD: 185 T: 88 QT: 433 QTc: 520 Interpretive Statements ATRIAL FIBRILLATION RIGHT BUNDLE BRANCH BLOCK [120+ ms QRS DURATION, UPRIGHT V1, 40+ ms S IN I/aVL/V4/V5/V6] LEFT ANTERIOR FASCICULAR BLOCK [QRS AXIS <= -45, QR IN I, RS IN II] POSSIBLE SEPTAL MYOCARDIAL INFARCTION , OF INDETERMINATE AGE [30 ms Q WAVE IN V1/V2] MODERATE T-WAVE ABNORMALITY, CONSIDER LATERAL ISCHEMIA [-0.1+ mV T-WAVE IN I/aVL/V5/V6] Compared to ECG 05/19/2024 06:18:45 Left anterior fascicular block now present Right-axis deviation no longer present Myocardial infarct finding still present Electronically Signed On 05-20-2024 16:57:28 CDT by Victoriano White M.D. [id number]
[2024-05-19 08:48] LABS: Troponin 5 2HR 49.97 ng/L (0-10)
[2024-05-19 08:49] LABS: Troponin 5 2HR Delta -1.03 ABS# (0-10)
[2024-05-19 10:29] LABS: Bilirubin Urine Negative (Negative); Blood Urine Negative (Negative); Glucose Urine UA Negative (Normal); Ketones Urine Negative (Negative); Leukocyte Esterase Urine 1+ (Negative); Nitrate Urine Negative (Negative); Protein Urine Trace (Negative); Specific Gravity, Urine 1.013 (1.005-1.030); Urine Appearance Cloudy (CLEAR); Urine Color Yellow (Yellow)
[2024-05-19 10:32] LABS: Add Urine Microscopic? YES; Bacteria Urine None Seen /hpf; Hyaline Casts Urine 150.59 /lpf; RBC Urine 0-2 /hpf (0-2); Squamous Epithelial Cell Urine 0-5 /hpf (0-5); WBC Urine 21-50 /hpf (0-5)
[2024-05-19 11:10] LABS: UA Slide Review UA Slide Review Perf
[2024-05-19 11:11] LABS: Add Urine Culture? Yes
--- NOTE | 2024-05-19 12:15 | ECG_ITS ---
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 Measurements Intervals [place] Rate: 98 P: 0 SD: 0 QRS: -88 QRSD: 188 T: 81 QT: 374 QTc: 478 Interpretive Statements ATRIAL FIBRILLATION RIGHT BUNDLE BRANCH BLOCK [120+ ms QRS DURATION, UPRIGHT V1, 40+ ms S IN I/aVL/V4/V5/V6] LEFT ANTERIOR FASCICULAR BLOCK [QRS AXIS <= -45, QR IN I, RS IN II] POSSIBLE SEPTAL MYOCARDIAL INFARCTION , OF INDETERMINATE AGE [30 ms Q WAVE IN V1/V2] Compared to ECG 05/19/2024 08:28:16 T-wave abnormality no longer present Possible ischemia no longer present Myocardial infarct finding still present Electronically Signed On 05-19-2024 23:36:16 CDT by Keisha Coronel M.D. [id number]
[2024-05-19 12:24] LABS: Hepatitis B Core AB, Total Non-Reactive (Nonreactive); Hepatitis B Surface AB < 3.5 (11.5-1000); Hepatitis B Surface Antigen Non-Reactive (Nonreactive); Hepatitis C Virus Antibody Non-Reactive (Nonreactive)
--- NOTE | 2024-05-19 13:58 | PM.HP ---
Providers/Chief Complaint Admitting Physician: Delores Marte MD Primary Care Provider: Donavan Champagne DO Chief Complaint: SOB History of Present Illness Myesha Parker is a 73 year old female with past medical history of end-stage renal disease on hemodialysis, Sunday and Sunday, atrial fibrillation not on anticoagulation secondary to history of GI bleed, type 2 diabetes mellitus, congestive heart failure presented with complaint of shortness of breath from nursing facility. As per the patient's who is at bedside reported she is usually on 2 L of supplemental oxygen via nasal cannula but has been requiring more since this morning. She denies any history of fever, cold, cough, palpitations, chest pain, urinary or bowel complaints. Currently she is saturating 92% on 4 L nasal cannula. History also provided by who is involved in her care and has power of attorney law clerk. She was due for hemodialysis this morning but requested to come to ER for further evaluation. Nephrology consulted in ED for HD today. Review of Systems Narrative: As per HPI Medications/Allergies Home Medications Medication Instructions Recorded Confirmed Last Taken Type cholecalciferol (vitamin D3) 25 1,000 unit PO DAILY 10/12/19 05/19/24 05/18/24 History mcg (1,000 unit) tablet (Vitamin D3) nitroglycerin 0.4 mg sublingual 0.4 mg sublingual Q5M PRN Chest 02/08/21 05/19/24 Unknown Rx tablet (Nitrostat) Pain #30 tabs calcium carbonate (Calcium 600) 600 mg PO DAILY 06/27/21 05/19/24 05/18/24 History levothyroxine 150 mcg tablet 150 mcg PO DAILY@06 06/27/21 05/19/24 05/19/24 History (Euthyrox) pantoprazole 40 mg tablet,delayed 40 mg PO BID 09/13/21 05/19/24 05/18/24 History release glucose 4 gram chewable tablet 4 g PO PRN PRN Hypoglycemia 06/17/23 05/19/24 Unknown History fluticasone fur. 200 mcg-umeclid 1 inh inhalation DAILY #28 ea 06/20/23 05/19/24 05/18/24 Rx 62.5 mcg-vilant 25 mcg inhalat.powder (Trelegy Ellipta) insulin lispro 100 unit/mL See Rx Instructions .Route 08/17/23 05/19/24 05/18/24 Rx subcutaneous solution (Humalog .COMPLEX #10 mL U-100 Insulin) bisacodyl 10 mg rectal suppository 10 mg [place] DAILY PRN if no bm x3 days 09/30/23 05/19/24 11/22/23 History (Dulcolax (bisacodyl)) meclizine 25 mg tablet 25 mg PO TID PRN Nausea And 09/30/23 05/19/24 04/30/24 12:20 History Vomiting nystatin 100,000 unit/gram topical See Rx Instructions .Route 09/30/23 05/19/24 Unknown History powder ([facility]) .COMPLEX PRN Rash magnesium L-lactate 84 mg 84 mg PO DAILY@08 10/12/23 05/19/24 05/18/24 History tablet,extended release methotrexate sodium 2.5 mg tablet 6 mg PO Q7D 10/12/23 05/19/24 05/17/24 History aspirin 81 mg tablet,delayed 81 mg PO DAILY #30 tabs 10/19/23 05/19/24 05/18/24 Rx release folic acid 1 mg tablet 1 mg PO DAILY 01/09/24 05/19/24 05/18/24 History melatonin 1 mg tablet 1 mg PO BEDTIME 01/09/24 05/19/24 05/18/24 History lidocaine 5 % topical patch 1 patch topical BID 03/17/24 05/19/24 05/19/24 History sertraline 100 mg tablet 100 mg PO BEDTIME 03/17/24 05/19/24 05/18/24 History ondansetron 4 mg disintegrating 4 mg PO Q6H PRN Nausea And Vomiting 03/28/24 05/19/24 05/17/24 History tablet albuterol sulfate 0.63 mg/3 mL 0.63 mg inhalation TID PRN 04/22/24 05/19/24 05/14/24 09:05 History solution for nebulization Shortness Of Breath Or Wheezing lactulose 10 gram/15 mL (15 mL) 15 ml PO DAILY 04/22/24 05/19/24 05/18/24 History oral solution polyethylene glycol 3350 17 gram 17 g PO DAILY 04/22/24 05/19/24 05/18/24 History oral powder packet (Miralax) pyridoxine (vitamin B6) 500 mg 500 mg PO DAILY 04/22/24 05/19/24 05/18/24 History tablet bumetanide 2 mg tablet 2 mg PO DAILY #90 tabs 04/25/24 05/19/24 05/18/24 Rx guaifenesin 400 mg tablet 400 mg PO TID PRN congestion #30 04/25/24 05/19/24 Unknown Rx tabs potassium chloride 10 mEq 10 meq PO DAILY #30 tabs 04/25/24 05/19/24 05/18/24 Rx tablet,extended release (Klor-Con) carica papaya 4 tab PO TIDWM 05/01/24 05/19/24 05/18/24 History menthol 0.44 %-zinc oxide 20.6 % 1 applic topical BID PRN Bed sore 05/01/24 05/19/24 05/18/24 History topical ointment (Calmoseptine) midodrine 10 mg tablet 10 mg PO TID 05/01/24 05/19/24 05/18/24 History amiodarone 200 mg tablet 200 mg PO BIDWMEAL #60 tabs 05/05/24 05/19/24 05/18/24 Rx metoprolol tartrate 25 mg tablet 12.5 mg (1/2 x 25 mg) PO BID #60 05/05/24 05/19/24 05/16/24 Rx tabs lorazepam 1 mg tablet (Ativan) 1 mg PO BID PRN Anxiety 05/15/24 05/19/24 05/18/24 History acetaminophen 325 mg tablet 650 mg PO Q6H PRN pain/increased 05/19/24 05/19/24 05/18/24 History temp Allergies Allergy/AdvReac Type Severity Reaction Status Date / Time adhesive tape Allergy rash Verified 05/11/24 15:26 cinnamon Allergy sinus Verified 05/11/24 15:26 codeine Allergy unknown Verified 05/11/24 15:26 cedar Allergy sinus Uncoded 05/11/24 15:26 pine Allergy sinus Uncoded 05/11/24 15:26 pork food Allergy ADR-Nausea Uncoded 05/11/24 15:26 PFSH Acute PFSH: Medical History (Updated 05/19/24 @ 14:23 by Delores Marte MD) Breath shortness Atrial fibrillation NSTEMI (non-ST elevated myocardial infarction) History of cardiovascular stress test 09/2023 History of stroke Diabetes mellitus, type II Myasthenia gravis listed in [facility] records Amber albicans infection 2022 Clostridioides difficile diarrhea 12/18 Inflammatory arthritis Sleep apnea in adult noncompliant with CPAP/BiPAP in outpt setting (machine feels different) Colon polyp Gastric polyposis UGIB (upper gastrointestinal bleed) 2020 Chronic atrial fibrillation not on chronic anticoagulation due to recurrent falls and prior GI bleed Congestive heart failure (CHF) Orthostatic hypotension Chronic post-traumatic stress disorder (PTSD) Major depressive disorder, recurrent episode, moderate with anxious distress Duodenal ulcer due to bacteria 08/16 Coronary artery disease Chronic knee pain Chronic low back pain COVID-14 August 2020 Seronegative rheumatoid arthritis of both hands Osteoarthritis of knees, bilateral Fibromyalgia Lung nodule Unstable angina Urgency incontinence Left renal mass COPD (chronic obstructive pulmonary disease) Oxygen dependent, 3-3.5 L at baseline Hypothyroidism Liver cirrhosis Hyperlipidemia Hypertension Recurrent UTI Surgical History S/P dialysis catheter insertion 07/2023 History of colonoscopy 06/23/22 History of esophagogastroduodenoscopy (EGD) 06/23/22 History of cholecystectomy History of thyroid surgery History of cardiac cath History of hysterectomy History of knee replacement Family History Other CAD (coronary artery disease) Cancer Denies family history of Anesthesia complication Bleeding disorder Social History Smoking and tobacco/nicotine status: former use of tobacco/nicotine Quit status (tobacco/nicotine): has quit using Year quit tobacco: 2005 Second hand smoke exposure: No Alcohol intake: never Substance/Drug Use: never Adopted: No Caregiver/support person: No Lives independently: No Household members: spouse Housing: Skilled Nursing Marital status: Current occupational status: retired Current gender identity: Female Vitals/I&O/Wt Last Vital Signs Temp 98.4 F 05/19/24 06:06 Pulse 98 05/19/24 12:30 Resp 31 H 05/19/24 12:30 BP 129/73 05/19/24 12:30 Pulse Ox 94 05/19/24 12:30 O2 Del Method Nasal Cannula 05/19/24 10:17 O2 Flow Rate 3 05/19/24 06:29 Weight last 48 hrs Weight 93.44 kg Physical Exam Narrative: She is alert awake oriented x 3 in mild respiratory distress Cardiovascular normal heart sounds Respiratory clear to auscultation bilaterally, no crackles or wheezing present Abdomen soft nontender nondistended normal bowel sounds Extremities no edema present bilateral lower extremity Data 05/19/24 06:28 05/19/24 06:28 A&P Assessment and plan (1) Shortness of breath: Likely secondary to acute fluid overload with BNP of 43 665. Chest x-ray consistent with cardiomegaly with bilateral infiltrates and effusions . Findings worse as compared to 05/11/2024 Also missed dialysis session today. Nephrology consulted in ED, would probably get HD today. Patient currently on 4 L nasal cannula saturating 92%. (2) Acute hypoxic respiratory failure: Likely secondary to fluid overload Will continue management as above (3) Type 2 diabetes mellitus: Continue home medications (4) Atrial fibrillation: EKG consistent with A-fib at 98 bpm Continue to monitor Qualifiers: Atrial fibrillation type: unspecified Qualified Code(s): I48.91 - Unspecified atrial fibrillation (5) ESRD on dialysis: Probably HD today (6) UTI (urinary tract infection): UA mildly positive, in view of acute shortness of breath, possibility for fluid overload in combination with acute infection . Has history of ESBL E. coli in the past but will start on IV ceftriaxone 1 g daily (7) Congestive heart failure: Will do IV Lasix 40 mg twice daily after assessing postdialysis Strict I's and O's Daily weight Attestations Medical Necessity Statement*: She needs continued hospitalization not crossing 2 midnights for management of fluid overload with hemodialysis and UTI with IV antibiotics. Time Spent in Patient Care: 40 minutes Coding Level of Care Code Acute Code for [facility] Fwd Diagnoses Shortness of breath R06.02 Acute hypoxic respiratory failure J96.01 Type 2 diabetes mellitus E11.9 Atrial fibrillation I48.91 Atrial fibrillation type: unspecified ESRD on dialysis N18.6; Z99.2 UTI (urinary tract infection) N39.0 Congestive heart failure I50.9 Time Spent (min) 40
--- NOTE | 2024-05-19 14:13 | P.CONIM_ITS ---
Providers/Reason For Consult 2 Consulting Physician/Specialty*: ,[facility]/nephrology Reason for Consult*: End-stage renal disease Attending Physician: Delores Marte MD Primary Care Provider: Donavan Champagne DO History of Present Illness History of Present Illness Myesha Parker is a 73 year old female Patient is 68-year-old female well-known to our service due to previous multiple admissions, past medical history significant for end-stage renal disease on dialysis per Sunday schedule, hypertension, chronic A-fib, diabetes, congestive cardiac failure, was sent from the halfway due to shortness of breath and hypoxia. Vital signs otherwise stable in the emergency department, lab data significant for hemoglobin of 8.2, potassium of 5.4 sodium 134 Review of Systems 2 Narrative: Other review of systems negative Medications/Allergies Home Medications Medication Instructions Recorded Confirmed Last Taken Type cholecalciferol (vitamin D3) 25 1,000 unit PO DAILY 10/12/19 05/19/24 05/18/24 History mcg (1,000 unit) tablet (Vitamin D3) nitroglycerin 0.4 mg sublingual 0.4 mg sublingual Q5M PRN Chest 02/08/21 05/19/24 Unknown Rx tablet (Nitrostat) Pain #30 tabs calcium carbonate (Calcium 600) 600 mg PO DAILY 06/27/21 05/19/24 05/18/24 History levothyroxine 150 mcg tablet 150 mcg PO DAILY@06 06/27/21 05/19/24 05/19/24 History (Euthyrox) pantoprazole 40 mg tablet,delayed 40 mg PO BID 09/13/21 05/19/24 05/18/24 History release glucose 4 gram chewable tablet 4 g PO PRN PRN Hypoglycemia 06/17/23 05/19/24 Unknown History fluticasone fur. 200 mcg-umeclid 1 inh inhalation DAILY #28 ea 06/20/23 05/19/24 05/18/24 Rx 62.5 mcg-vilant 25 mcg inhalat.powder (Trelegy Ellipta) insulin lispro 100 unit/mL See Rx Instructions .Route 08/17/23 05/19/24 05/18/24 Rx subcutaneous solution (Humalog .COMPLEX #10 mL U-100 Insulin) bisacodyl 10 mg rectal suppository 10 mg [place] DAILY PRN if no bm x3 days 09/30/23 05/19/24 11/22/23 History (Dulcolax (bisacodyl)) meclizine 25 mg tablet 25 mg PO TID PRN Nausea And 09/30/23 05/19/24 04/30/24 12:20 History Vomiting nystatin 100,000 unit/gram topical See Rx Instructions .Route 09/30/23 05/19/24 Unknown History powder ([facility]) .COMPLEX PRN Rash magnesium L-lactate 84 mg 84 mg PO DAILY@08 10/12/23 05/19/24 05/18/24 History tablet,extended release methotrexate sodium 2.5 mg tablet 6 mg PO Q7D 10/12/23 05/19/24 05/17/24 History aspirin 81 mg tablet,delayed 81 mg PO DAILY #30 tabs 10/19/23 05/19/24 05/18/24 Rx release folic acid 1 mg tablet 1 mg PO DAILY 01/09/24 05/19/24 05/18/24 History melatonin 1 mg tablet 1 mg PO BEDTIME 01/09/24 05/19/24 05/18/24 History lidocaine 5 % topical patch 1 patch topical BID 03/17/24 05/19/24 05/19/24 History sertraline 100 mg tablet 100 mg PO BEDTIME 03/17/24 05/19/24 05/18/24 History ondansetron 4 mg disintegrating 4 mg PO Q6H PRN Nausea And Vomiting 03/28/24 05/19/24 05/17/24 History tablet albuterol sulfate 0.63 mg/3 mL 0.63 mg inhalation TID PRN 04/22/24 05/19/24 05/14/24 09:05 History solution for nebulization Shortness Of Breath Or Wheezing lactulose 10 gram/15 mL (15 mL) 15 ml PO DAILY 04/22/24 05/19/24 05/18/24 History oral solution polyethylene glycol 3350 17 gram 17 g PO DAILY 04/22/24 05/19/24 05/18/24 History oral powder packet (Miralax) pyridoxine (vitamin B6) 500 mg 500 mg PO DAILY 04/22/24 05/19/24 05/18/24 History tablet bumetanide 2 mg tablet 2 mg PO DAILY #90 tabs 04/25/24 05/19/24 05/18/24 Rx guaifenesin 400 mg tablet 400 mg PO TID PRN congestion #30 04/25/24 05/19/24 Unknown Rx tabs potassium chloride 10 mEq 10 meq PO DAILY #30 tabs 04/25/24 05/19/24 05/18/24 Rx tablet,extended release (Klor-Con) carica papaya 4 tab PO TIDWM 05/01/24 05/19/24 05/18/24 History menthol 0.44 %-zinc oxide 20.6 % 1 applic topical BID PRN Bed sore 05/01/24 05/19/24 05/18/24 History topical ointment (Calmoseptine) midodrine 10 mg tablet 10 mg PO TID 05/01/24 05/19/24 05/18/24 History amiodarone 200 mg tablet 200 mg PO BIDWMEAL #60 tabs 05/05/24 05/19/24 05/18/24 Rx metoprolol tartrate 25 mg tablet 12.5 mg (1/2 x 25 mg) PO BID #60 05/05/24 05/19/24 05/16/24 Rx tabs lorazepam 1 mg tablet (Ativan) 1 mg PO BID PRN Anxiety 05/15/24 05/19/24 05/18/24 History acetaminophen 325 mg tablet 650 mg PO Q6H PRN pain/increased 05/19/24 05/19/24 05/18/24 History temp Allergies Allergy/AdvReac Type Severity Reaction Status Date / Time adhesive tape Allergy rash Verified 05/11/24 15:26 cinnamon Allergy sinus Verified 05/11/24 15:26 codeine Allergy unknown Verified 05/11/24 15:26 cedar Allergy sinus Uncoded 05/11/24 15:26 pine Allergy sinus Uncoded 05/11/24 15:26 pork food Allergy ADR-Nausea Uncoded 05/11/24 15:26 PFSH Acute 2 PFSH: Medical History NSTEMI (non-ST elevated myocardial infarction) History of cardiovascular stress test 09/2023 History of stroke Diabetes mellitus, type II Myasthenia gravis listed in [facility] records Amber albicans infection 2022 Clostridioides difficile diarrhea 12/18 Inflammatory arthritis Sleep apnea in adult noncompliant with CPAP/BiPAP in outpt setting (machine feels different) Colon polyp Gastric polyposis UGIB (upper gastrointestinal bleed) 2020 Chronic atrial fibrillation not on chronic anticoagulation due to recurrent falls and prior GI bleed Congestive heart failure (CHF) Orthostatic hypotension Chronic post-traumatic stress disorder (PTSD) Major depressive disorder, recurrent episode, moderate with anxious distress Duodenal ulcer due to bacteria 08/16 Coronary artery disease Chronic knee pain Chronic low back pain COVID-14 August 2020 Seronegative rheumatoid arthritis of both hands Osteoarthritis of knees, bilateral Fibromyalgia Lung nodule Unstable angina Urgency incontinence Left renal mass COPD (chronic obstructive pulmonary disease) Oxygen dependent, 3-3.5 L at baseline Hypothyroidism Liver cirrhosis Hyperlipidemia Hypertension Recurrent UTI Surgical History S/P dialysis catheter insertion 07/2023 History of colonoscopy 06/23/22 History of esophagogastroduodenoscopy (EGD) 06/23/22 History of cholecystectomy History of thyroid surgery History of cardiac cath History of hysterectomy History of knee replacement Family History Other CAD (coronary artery disease) Cancer Denies family history of Anesthesia complication Bleeding disorder Social History Smoking and tobacco/nicotine status: former use of tobacco/nicotine Quit status (tobacco/nicotine): has quit using Year quit tobacco: 2005 Second hand smoke exposure: No Alcohol intake: never Substance/Drug Use: never Adopted: No Caregiver/support person: No Lives independently: No Household members: spouse Housing: Group Home Marital status: Current occupational status: retired Current gender identity: Female Vitals/I&O/Wt Last Vital Signs Temp 98.4 F 05/19/24 06:06 Pulse 98 05/19/24 12:30 Resp 31 H 05/19/24 12:30 BP 129/73 05/19/24 12:30 Pulse Ox 94 05/19/24 12:30 O2 Del Method Nasal Cannula 05/19/24 10:17 O2 Flow Rate 3 05/19/24 06:29 Weight last 48 hrs Weight 93.44 kg Physical Exam 2 Narrative: Patient awake alert no distress HEENT S1-S2 irregular rhythm per report Lungs clear per report No pedal edema Data 05/19/24 06:28 05/19/24 06:28 A&P Assessment and plan (1) End stage renal disease on dialysis: 1. End-stage renal disease: On MWF schedule, plan for hemodialysis today 2. Acute on chronic respiratory failure, multifactorial, HD as above 3. Anemia: Will order Epogen with HD 4. History of CHF 5. History of A-fib on chronic anticoagulation 6. Hyperkalemia: Low K diet and HD as above Patient admitted using audiovisual cart Coding Level of Care Code Acute Code for [facility] Fwd Diagnoses End stage renal disease on dialysis N18.6; Z99.2
--- NOTE | 2024-05-19 14:36 | PC.HD ---
Electronic consent signed by patient for HD. Heparin 1000 units loading dose administered at 14:25 per plant guard's orders.
[2024-05-19 14:53] LABS: Troponin 5 6HR 45.15 ng/L (0-10)
[2024-05-19 14:54] LABS: Troponin 5 6HR Delta -5.85 ng/L (0-12)
[2024-05-19] MEDS: heparin, porcine 1,000 unit/mL INJ 10 mL 1000 UNIT IV (14:56)
[2024-05-19 16:38] LABS: Glucose Point of Care 137 mg/dL (70-110)
[2024-05-19] MEDS: epoetin alfa 20,000 unit/mL MDV (NON-ESRD) 5000 UNIT SUBCUT (17:20)
[2024-05-19] MEDS: famotidine 20 mg Tablet PO (17:44)
[2024-05-19] MEDS: enoxaparin 40 mg/0.4 mL Syringe SUBCUT (17:44)
[2024-05-19] MEDS: amiodarone 200 mg Tablet PO (17:45)
[2024-05-19] MEDS: cefTRIAXone 1,000 mg SDV 1000 MG IVP (17:45)
[2024-05-19] MEDS: metoprolol tartrate 25 mg Tablet 12.5 MG PO (17:45)
[2024-05-19] MEDS: meropenem 1,000 mg SDV 1000 MG IVP (18:21)
[2024-05-19] MEDS: budesonide 0.5 mg/2 mL Neb INHALATION (19:47)
[2024-05-19] MEDS: ipratropium-albuterol 3 mL Neb INHALATION (19:47)
[2024-05-19] MEDS: midodrine 5 mg TABLET 10 MG PO (20:31)
[2024-05-19] MEDS: sertraline 100 mg Tablet PO (20:31)
[2024-05-20] VITALS (11 sets, daily range): BP systolic 101–123; BP diastolic 51–67; PULSE 75–100; RESP 13–22; TEMP 36.4–37.3; O2SAT 92–99
[2024-05-20 04:32] LABS: Basophils % 0.2 %; Eosinophils # 0.1 10^3/uL (0.0-0.8); Eosinophils % 1.3 %; Hematocrit 23.7 % (36-47); Lymphocytes # 0.3 10^3/uL (0.8-4.8); Lymphocytes % 6.2 %; Mean Corpuscular HGB Conc 31.2 g/dL (30-55); Mean Corpuscular Hemoglobin 31.9 pg (27-33); Mean Corpuscular Volume 102.2 fl (85-98); Monocytes # 0.1 10^3/uL (0.2-0.9); Monocytes % 1.1 %; Neutrophils # 4.08 10^3/uL (1.8-7.7); Neutrophils % 90.3 %; Nucleated Red Blood Cells % 0 %; Platelet Count 92 10^3/cmm (157-399); Red Blood Count 2.32 10^6/uL (3.85-5.65); Red Cell Distribution Width 17.5 % (12.1-15.1); White Blood Count 4.52 10^3/uL (3.29-11.43)
[2024-05-20 04:57] LABS: Anion Gap 14.3 (5-19); Blood Urea Nitrogen 31 mg/dL (8-23); Calcium 8.7 mg/dL (8.5-10.5); Carbon Dioxide 28 mmol/L (22-29); Chloride 97 mmol/L (98-107); Creatinine Clr Calc Pharmacy 27.9258; Glucose 120 mg/dL (65-115); Magnesium 1.6 mg/dL (1.7-2.3); Osmolality Calculated 288 mOsm/kg (285-295); Phosphorus 3.8 mg/dL (2.5-4.5); Potassium 4.3 mmol/L (3.5-5.1); Sodium 135 mmol/L (136-145)
[2024-05-20] MEDS: levothyroxine 150 mcg Tablet PO (05:09)
[2024-05-20 05:20] LABS: NT Pro B Type Natriuretic Pept 39992 pg/mL (0-450)
[2024-05-20] MEDS: midodrine 5 mg TABLET 10 MG PO ×2 (07:42→20:45)
[2024-05-20] MEDS: magnesium lactate 84 mg Tablet PO (07:42)
[2024-05-20] MEDS: amiodarone 200 mg Tablet PO ×2 (07:43→17:14)
[2024-05-20] MEDS: bumetanide 1 mg Tablet 2 MG PO (07:43)
[2024-05-20] MEDS: aspirin 81 mg EC Tablet PO (07:43)
[2024-05-20] MEDS: budesonide 0.5 mg/2 mL Neb INHALATION ×2 (07:43→19:46)
[2024-05-20] MEDS: metoprolol tartrate 25 mg Tablet 12.5 MG PO ×2 (07:43→17:14)
[2024-05-20] MEDS: ipratropium-albuterol 3 mL Neb INHALATION ×4 (07:43→19:47)
[2024-05-20] MEDS: famotidine 20 mg Tablet PO ×2 (07:44→17:14)
[2024-05-20] MEDS: potassium chloride ER 10 mEq Tablet PO (07:44)
--- NOTE | 2024-05-20 09:32 | PC.CHAP ---
Pastoral Care Encounter/Spiritual Assessment Type of Contact [] Declined rolling up machine operator visit [] Patient/Family/Request visit [] Outpatient visit [] Follow-up visit [] Physician referral [] Code/Alert [x] Routine visit [] Staff referral [] Actively dying [] Patient sleeping [] Family support [] [] Out of room [] Palliative care [] [] Receiving care in room [] Pre-surgical visit [] Trauma [] Long length of stay [] ICU visit [] Other: Relational/Emotional Strength [x] Patient feels connected with others/family/visitors/staff [] Distress [] Loneliness/isolation [] Abandonment Spirituality of Patient [x] Person of Joelle [] Attends Rastafari of their Joelle [x] Believes in Prayer [] Reads Bible or Rastafarian materials [] There are Spiritual issues to be addressed Sociology Research Assistant Interventions [x] Prayer [x] Active listening [] Non-anxious presence [x] Spiritual/emotional support [] Crisis/trauma care [] Spiritual counseling [] Bereavement support [] Provided bereavement packet [] Provided Bible/devotional materials [] Provided toy/stuffed animal, coloring book to patient or family member [] Provided Communion [] Anointing/[place] [] Salvation [x] Completed spiritual assessment [] Other: Impact on Illness or Injury [] Angry [] Fearful [] Anxious [] Often cries [] Exhaustion [] Unable to work [] Unable to attend [employer] [] Unable to walk/stand [] Unable to read [] Unable to drive [] Unable to eat/drink [] Unable to sleep [] Unable to be with family [] Patient intubated [] Other: Summary Time spent with patient 5 min
[2024-05-20] MEDS: acetaminophen 325 mg Tablet 650 MG PO (12:36)
--- NOTE | 2024-05-20 12:58 | PM.PN ---
Subjective Subjective: No acute overnight events noted. She had hemodialysis yesterday, 3 L fluid taken out. Feels better today, less shortness of breath. Medications: Reviewed: Yes Vitals/I&O/Wt Last Vital Signs Temp 98.7 F 05/20/24 12:25 Pulse 82 05/20/24 12:25 Resp 18 05/20/24 12:25 BP 114/65 05/20/24 12:25 Pulse Ox 99 05/20/24 12:25 O2 Del Method Nasal Cannula 05/20/24 11:35 O2 Flow Rate 3 05/20/24 11:35 05/19/24 05/20/24 05/20/24 22:59 06:59 14:59 Intake Total 500 / 500 Output Total 3500 / 3500 Balance -3000 / -3000 Weight last 48 hrs Weight 87.362 kg Weight 87.345 kg Weight 88.4 kg Weight 93.44 kg Physical Exam Narrative: She is alert awake oriented x 3 in mild respiratory distress Cardiovascular normal heart sounds Respiratory clear to auscultation bilaterally, no crackles or wheezing present Abdomen soft nontender nondistended normal bowel sounds Extremities no edema present bilateral lower extremity Data 05/20/24 04:00 05/20/24 04:00 Micro: Microbiology 05/19/24 10:16 Urine Culture - Preliminary Urine,Clean Catch A&P Assessment and plan (1) Shortness of breath: Likely secondary to acute fluid overload with BNP trending down to 39K. Chest x-ray consistent with cardiomegaly with bilateral infiltrates and effusions . Findings worse as compared to 05/11/2024 Will repeat chest x-ray today since received hemodialysis yesterday Patient currently on 4 L nasal cannula saturating 92%. (2) Acute hypoxic respiratory failure: Likely secondary to fluid overload Will continue management as above (3) Type 2 diabetes mellitus: Continue home medications (4) Atrial fibrillation: EKG consistent with A-fib at 98 bpm Continue to monitor Qualifiers: Atrial fibrillation type: unspecified Qualified Code(s): I48.91 - Unspecified atrial fibrillation (5) ESRD on dialysis: Hemodialysis schedule on Sunday and Sunday Probable HD tomorrow in a.m. followed by discharge (6) UTI (urinary tract infection): UA mildly positive, in view of acute shortness of breath, possibility for fluid overload in combination with acute infection . Has history of ESBL E. coli in the past but will start on IV ceftriaxone 1 g daily (7) Congestive heart failure: Will hold off on IV Lasix for now since shortness of breath improved postdialysis Strict I's and O's Daily weight Attestations Medical Necessity Statement*: She needs continued hospitalization not crossing 2 midnights for management of fluid overload with hemodialysis and UTI with IV antibiotics. Anticipating discharge in a.m. Time Spent in Patient Care: 15 minutes Coding Level of Care Code Acute Code for [facility] Diagnoses Shortness of breath R06.02 Acute hypoxic respiratory failure J96.01 Type 2 diabetes mellitus E11.9 Atrial fibrillation I48.91 Atrial fibrillation type: unspecified ESRD on dialysis N18.6; Z99.2 UTI (urinary tract infection) N39.0 Congestive heart failure I50.9 Time Spent (min) 15
[2024-05-20] MEDS: levoFLOXacin 750 mg Tablet PO (16:12)
[2024-05-20] MEDS: enoxaparin 30 mg/0.3 mL Syringe SUBCUT (17:15)
--- NOTE | 2024-05-20 19:08 | P.PN_ITS ---
Subjective 2 Subjective: no new c/o Medications: Reviewed: Yes Vitals/I&O/Wt Last Vital Signs Temp 97.5 F L 05/20/24 17:51 Pulse 82 05/20/24 17:51 Resp 18 05/20/24 17:51 BP 123/67 05/20/24 17:51 Pulse Ox 96 05/20/24 17:51 O2 Del Method Nasal Cannula 05/20/24 16:00 O2 Flow Rate 3 05/20/24 16:00 Weight last 48 hrs Weight 87.362 kg Weight 87.345 kg Weight 88.4 kg Weight 93.44 kg Physical Exam 2 Narrative: Patient awake alert no distress HEENT S1-S2 irregular rhythm per report Lungs clear per report No pedal edema Data 05/20/24 04:00 05/20/24 04:00 Micro: Microbiology 05/19/24 10:16 Urine Culture - Preliminary Urine,Clean Catch A&P Assessment and plan (1) End stage renal disease on dialysis: 1. End-stage renal disease: On MWF schedule, plan for hemodialysis tomorrow 2. Acute on chronic respiratory failure, multifactorial, HD as above 3. Anemia: Will order Epogen with HD 4. History of CHF 5. History of A-fib on chronic anticoagulation 6. Hyperkalemia: Low K diet and HD as above Patient admitted using audiovisual cart Attestations 2 Medical Necessity Statement*: per nano Coding Level of Care Code Acute Code for [facility] Fwd Diagnoses End stage renal disease on dialysis N18.6; Z99.2
[2024-05-20] MEDS: sertraline 100 mg Tablet PO (20:45)
[2024-05-20] MEDS: LORazepam 1 mg Tablet PO (20:53)
[2024-05-21] VITALS (9 sets, daily range): BP systolic 94–152; BP diastolic 54–75; PULSE 77–113; RESP 12–18; TEMP 35.8–37.1; O2SAT 91–98
--- NOTE | 2024-05-21 05:34 | P.PN_ITS ---
Subjective 2 Subjective: no new c/o Medications: Reviewed: Yes Vitals/I&O/Wt Last Vital Signs Temp 98.7 F 05/21/24 04:00 Pulse 83 05/21/24 04:00 Resp 16 05/21/24 04:00 BP 114/75 05/21/24 04:00 Pulse Ox 98 05/21/24 04:00 O2 Del Method Nasal Cannula 05/21/24 04:00 O2 Flow Rate 3 05/20/24 19:47 Weight last 48 hrs Weight 90.537 kg Weight 87.362 kg Weight 87.345 kg Weight 88.4 kg Weight 93.44 kg Physical Exam 2 Narrative: Patient awake alert no distress HEENT S1-S2 irregular rhythm per report Lungs clear per report No pedal edema Data 05/21/24 05:10 05/21/24 05:10 Micro: Microbiology 05/19/24 10:16 Urine Culture - Preliminary Urine,Clean Catch A&P Assessment and plan (1) End stage renal disease on dialysis: 1. End-stage renal disease: On MWF schedule, plan for hemodialysis today 2. Acute on chronic respiratory failure, multifactorial, HD as above 3. Anemia: Will order Epogen with HD 4. History of CHF 5. History of A-fib on chronic anticoagulation 6. Hyperkalemia: Low K diet and HD as above Patient admitted using audiovisual cart Attestations 2 Medical Necessity Statement*: per nano Coding Level of Care Code Acute Code for Chg Fwd Diagnoses End stage renal disease on dialysis N18.6; Z99.2
[2024-05-21] MEDS: levothyroxine 150 mcg Tablet PO (05:47)
[2024-05-21 05:50] LABS: Basophils % 0.5 %; Eosinophils # 0.1 10^3/uL (0.0-0.8); Eosinophils % 1.2 %; Hematocrit 23.5 % (36-47); Lymphocytes # 0.3 10^3/uL (0.8-4.8); Lymphocytes % 5.9 %; Mean Corpuscular HGB Conc 30.6 g/dL (30-55); Mean Corpuscular Hemoglobin 31.4 pg (27-33); Mean Corpuscular Volume 102.6 fl (85-98); Monocytes % 0.5 %; Neutrophils # 3.89 10^3/uL (1.8-7.7); Neutrophils % 91.2 %; Nucleated Red Blood Cells % 0 %; Platelet Count 80 10^3/cmm (157-399); Red Blood Count 2.29 10^6/uL (3.85-5.65); Red Cell Distribution Width 17.7 % (12.1-15.1); White Blood Count 4.26 10^3/uL (3.29-11.43)
[2024-05-21 06:14] LABS: Anion Gap 16.8 (5-19); Blood Urea Nitrogen 42 mg/dL (8-23); Calcium 8.8 mg/dL (8.5-10.5); Carbon Dioxide 25 mmol/L (22-29); Chloride 99 mmol/L (98-107); Creatinine Clr Calc Pharmacy 21.6134; Glucose 123 mg/dL (65-115); Magnesium 1.6 mg/dL (1.7-2.3); Osmolality Calculated 294 mOsm/kg (285-295); Phosphorus 4.1 mg/dL (2.5-4.5); Potassium 4.8 mmol/L (3.5-5.1); Sodium 136 mmol/L (136-145)
[2024-05-21] MEDS: budesonide 0.5 mg/2 mL Neb INHALATION (07:25)
[2024-05-21] MEDS: ipratropium-albuterol 3 mL Neb INHALATION (07:25)
--- NOTE | 2024-05-21 09:01 | PC.HD ---
Heparin 1000 units loading dose administered at 0845 via arterial port of HD catheter per garbage truck helper's orders.
[2024-05-21] MEDS: bumetanide 1 mg Tablet 2 MG PO (09:29)
[2024-05-21] MEDS: LORazepam 1 mg Tablet PO (09:29)
[2024-05-21] MEDS: polyethylene glycol 3350 Pkt 17 gm PO (09:29)
[2024-05-21] MEDS: aspirin 81 mg EC Tablet PO (09:30)
[2024-05-21] MEDS: levoFLOXacin 750 mg Tablet PO (09:30)
[2024-05-21] MEDS: potassium chloride ER 10 mEq Tablet PO (09:30)
[2024-05-21] MEDS: magnesium lactate 84 mg Tablet PO (09:30)
[2024-05-21] MEDS: midodrine 5 mg TABLET 10 MG PO ×2 (09:30→17:19)
--- NOTE | 2024-05-21 09:41 | PC.NURSE ---
Morning dose of amiodarone and metoprolol held this morning per dialysis nurse, TAYO Orosco as pt is in dialysis.
--- NOTE | 2024-05-21 13:11 | P.DS_ITS ---
Discharge Providers Date of Admission: 05/19/24 13:00 Date of Discharge: May 21, 2024 Attending Provider at Admission: Delores Marte MD Attending Provider at Discharge: Delores Marte MD Primary Care Provider: Donavan Champagne DO Diagnoses at Discharge Discharge Diagnosis (1) End stage renal disease on dialysis: Status: Chronic (2) Shortness of breath: Status: Acute Reason for Visit Reason for Visit: SOB Brief History: Myesha Parker is a 73 year old female with past medical history of end-stage renal disease on hemodialysis, Sunday and Sunday, atrial fibrillation not on anticoagulation secondary to history of GI bleed, type 2 diabetes mellitus, congestive heart failure presented with complaint of shortness of breath from nursing facility. As per the patient's who is at bedside re ported she is usually on 2 L of supplemental oxygen via nasal cannula but has been requiring more since this morning. She denies any history of fever, cold, cough, palpitations, chest pain, urinary or bowel complaints. Currently she is saturating 92% on 4 L nasal cannula. History also provided by who is involved in her care and has power of button facing machine operator. She was due for hemodialysis this morning but requested to come to ER for further evaluation. Nephrology consulted in ED for HD today. Hospital Course Hospital Course (1) Shortness of breath: Likely secondary to acute fluid overload with BNP of 43 665. Chest x-ray consistent with cardiomegaly with bilateral infiltrates and effusions . Findings worse as compared to 05/11/2024 Also missed dialysis session today. Nephrology consulted in ED, would probably get HD today. Patient currently on 4 L nasal cannula saturating 92%. She received dialysis on 05/20 and shortness of breath improved. She was found to have gradually decreasing platelets, etiology unknown. Medications including Pepcid and Lovenox discontinued. Spoke with nephrology about new onset thrombocytopenia which could likely be due to Lovenox. Need follow-up as an outpatient and further workup for new onset thrombocytopenia. Her shortness of breath has resolved, she is feeling better and doing better. Will follow-up nephrology as an outpatient for dialysis and further care. Physical Exam Narrative: She is alert awake oriented x 3 Cardiovascular normal heart sounds Respiratory clear to auscultation bilaterally, no crackles or wheezing present Abdomen soft nontender nondistended normal bowel sounds Extremities no edema present bilateral lower extremity Discharge Data Studies Completed and Pending Completed Studies During Hospitalization Category Date Time Status XR chest 1V portable [id number] Stat Exams 05/19/24 06:14 Completed Pending at discharge Category Date Time Status Basic Metabolic Panel AM LABS Lab 05/22/24 04:00 Ordered Complete Blood Count w/Auto AM LABS Lab 05/22/24 04:00 Ordered Magnesium AM LABS Lab 05/22/24 04:00 Ordered Phosphorus AM LABS Lab 05/22/24 04:00 Ordered Radiology Impressions Chest X-Ray 05/19/24 06:14 IMPRESSION: 1. Cardiomegaly with bilateral infiltrates and effusions. Findings are worse on today's exam when compared to prior exam from 05/11/2024. Laboratory Results WBC 4.26 10^3/uL (3.29-11.43) 05/21/24 05:10 RBC 2.29 10^6/uL (3.85-5.65) L 05/21/24 05:10 Hgb 7.20 g/dL (11.27-16.99) L 05/21/24 05:10 Hct 23.5 % (36-47) L 05/21/24 05:10 MCV 102.6 fl (85-98) H 05/21/24 05:10 MCH 31.4 pg (27-33) 05/21/24 05:10 MCHC 30.6 g/dL (30-55) 05/21/24 05:10 RDW 17.7 % (12.1-15.1) H 05/21/24 05:10 Plt Count 80 10^3/cmm (157-399) L 05/21/24 05:10 MPV 10.0 fL (7.4-10.4) 05/21/24 05:10 Neut % (Auto) 91.2 % 05/21/24 05:10 Lymph % (Auto) 5.9 % 05/21/24 05:10 [place] % (Auto) 0.5 % 05/21/24 05:10 Eos % (Auto) 1.2 % 05/21/24 05:10 Baso % (Auto) 0.5 % 05/21/24 05:10 Neut # (Auto) 3.89 10^3/uL (1.8-7.7) 05/21/24 05:10 Lymph # (Auto) 0.3 10^3/uL (0.8-4.8) L 05/21/24 05:10 [place] # (Auto) 0.0 10^3/uL (0.2-0.9) L 05/21/24 05:10 Eos # (Auto) 0.1 10^3/uL (0.0-0.8) 05/21/24 05:10 Baso # (Auto) 0.0 10^3/uL (0.0-0.1) 05/21/24 05:10 Nucleated RBC % (auto) 0 % 05/21/24 05:10 Nucleated RBCs # 0.0 /100WBC 05/21/24 05:10 ESR 77 mm/hr (0-15) H 05/19/24 06:28 Sodium 136 mmol/L (136-145) 05/21/24 05:10 Potassium 4.8 mmol/L (3.5-5.1) 05/21/24 05:10 Chloride 99 mmol/L (98-107) 05/21/24 05:10 Carbon Dioxide 25 mmol/L (22-29) 05/21/24 05:10 Anion Gap 16.8 (5-19) 05/21/24 05:10 BUN 42 mg/dL (8-23) H 05/21/24 05:10 Creatinine 2.5 mg/dL (0.5-0.9) H 05/21/24 05:10 GFR Calculation Not Reportable 05/21/24 05:10 Glucose 123 mg/dL (65-115) H 05/21/24 05:10 POC Glucose 137 mg/dL (70-110) H 05/19/24 16:31 Calculated Osmolality 294 mOsm/kg (285-295) 05/21/24 05:10 Calcium 8.8 mg/dL (8.5-10.5) 05/21/24 05:10 Phosphorus 4.1 mg/dL (2.5-4.5) 05/21/24 05:10 Magnesium 1.6 mg/dL (1.7-2.3) L 05/21/24 05:10 Total Bilirubin 0.5 mg/dL (0.15-1.2) 05/19/24 06:28 AST 55 U/L (0-32) H 05/19/24 06:28 ALT 44 U/L (0-33) H 05/19/24 06:28 Alkaline Phosphatase 242 U/L (35-105) H 05/19/24 06:28 Troponin T Baseline 51 ng/L (0-10) H 05/19/24 06:28 Troponin T 120 Minute 49.97 ng/L (0-10) H 05/19/24 08:24 Delta Troponin T -1.03 ABS# (0-10) L 05/19/24 08:24 Troponin T Hi Sens 6Hr 45.15 ng/L (0-10) H 05/19/24 14:30 Troponin T Hi Sens 6Hr Delta -5.85 ng/L (0-12) L 05/19/24 14:30 NT-Pro-B Natriuret Pep 27197 pg/mL (0-450) H 05/20/24 04:00 Total Protein 5.8 g/dL (6.6-8.7) L 05/19/24 06:28 Albumin 2.9 g/dL (3.5-5.2) L 05/19/24 06:28 Globulin 2.9 g/dL (1.3-4.6) 05/19/24 06:28 Procalcitonin 0.80 ng/mL (0-0.5) H 05/19/24 06:28 Urine Color Yellow (Yellow) 05/19/24 10:16 Urine Appearance Cloudy (CLEAR) A 05/19/24 10:16 Urine pH 5.0 (5-7) 05/19/24 10:16 Ur Specific [place] 1.013 (1.005-1.030) 05/19/24 10:16 Urine Protein Trace (Negative) A 05/19/24 10:16 Urine Glucose (UA) Negative (Normal) 05/19/24 10:16 Urine Ketones Negative (Negative) 05/19/24 10:16 Urine Blood Negative (Negative) 05/19/24 10:16 Urine Nitrate Negative (Negative) 05/19/24 10:16 Urine Bilirubin Negative (Negative) 05/19/24 10:16 Urine Urobilinogen 1.0 mg/dL (Negative) 05/19/24 10:16 Ur Leukocyte Esterase 1+ (Negative) A 05/19/24 10:16 Urine RBC 0-2 /hpf (0-2) 05/19/24 10:16 Urine WBC 21-50 /hpf (0-5) H 05/19/24 10:16 Ur Squamous Epith Cells 0-5 /hpf (0-5) 05/19/24 10:16 Amorphous Sediment Not Reportable 05/19/24 10:16 Urine Bacteria None seen /hpf (NONE) 05/19/24 10:16 Hyaline Casts 150.59 /lpf 05/19/24 10:16 Hep Bs Antigen Non-reactive (Nonreactive) 05/19/24 06:28 Hep Bs Antibody < 3.5 (11.5-1000) L 05/19/24 06:28 Hep B Core Total Ab Non-reactive (Nonreactive) 05/19/24 06:28 Hepatitis C Antibody Non-reactive (Nonreactive) 05/19/24 06:28 Vitals Last Vital Signs Temp 96.4 F L 05/21/24 12:04 Pulse 113 H 05/21/24 12:04 Resp 18 05/21/24 12:04 BP 122/68 05/21/24 12:04 Pulse Ox 91 05/21/24 08:00 O2 Del Method Nasal Cannula 05/21/24 07:27 O2 Flow Rate 3 05/21/24 08:00 Discharge Plan Discharge Patient Disposition: Xfer SNF Condition: Stable Prescriptions: New levofloxacin 500 mg tablet 500 mg PO DAILY 7 Days Qty: 7 0RF Continued nitroglycerin [Nitrostat] 0.4 mg tablet, sublingual 0.4 mg SUBLINGUAL Q5M PRN (Reason: Chest Pain) Qty: 30 3RF Rx Instructions: MAX 3 DOSES PER EPISODE levothyroxine [Euthyrox] 150 mcg tablet 150 mcg PO DAILY@06 calcium carbonate [Calcium 600] 600 mg calcium (1,500 mg) tablet 600 mg PO DAILY cholecalciferol (vitamin D3) [Vitamin D3] 25 mcg (1,000 unit) Tablet 1,000 unit PO DAILY pantoprazole 40 mg tablet,delayed release (DR/EC) 40 mg PO BID glucose 4 gram tablet,chewable 4 g PO PRN PRN (Reason: Hypoglycemia) Trelegy Ellipta 200-62.5-25 mcg blister with device 1 inh INHALATION DAILY Qty: 28 0RF insulin lispro [Humalog U-100 Insulin] 100 unit/mL Solution See Rx Instructions .ROUTE .COMPLEX MDD 40 Qty: 10 0RF Rx Instructions: per sliding scale with meals 150-200=2 units 201-250=4 units 251-300=6 units 301-350=8 units 351-400=10 units 401-450=12 units meclizine 25 mg tablet 25 mg PO TID PRN (Reason: Nausea And Vomiting) bisacodyl [Dulcolax (bisacodyl)] 10 mg Suppository 10 mg NE DAILY PRN (Reason: if no bm x3 days ) nystatin [Nyamyc] 100,000 unit/gram powder See Rx Instructions .ROUTE .COMPLEX PRN (Reason: Rash) Rx Instructions: as directed every shift as needed (apply between thighs and affected areas twice a day as needed) methotrexate sodium 2.5 mg Tablet 6 mg PO Q7D Hold Instructions: Resume on 05/02/24. Rx Instructions: ON SUNDAY magnesium L-lactate 84 mg tablet extended release 84 mg PO DAILY@08 aspirin 81 mg Tablet,Delayed Release (Dr/Ec) 81 mg PO DAILY Qty: 30 0RF folic acid 1 mg tablet 1 mg PO DAILY melatonin 1 mg tablet 1 mg PO BEDTIME albuterol sulfate 0.63 mg/3 mL Solution For Nebulization 0.63 mg INHALATION TID PRN (Reason: Shortness Of Breath Or Wheezing) polyethylene glycol 3350 [Miralax] 17 gram Powder In Packet 17 g PO DAILY lactulose 10 gram/15 mL (15 mL) Solution 15 ml PO DAILY pyridoxine (vitamin B6) 500 mg Tablet 500 mg PO DAILY bumetanide 2 mg tablet 2 mg PO DAILY Qty: 90 0RF guaifenesin 400 mg tablet 400 mg PO TID PRN (Reason: congestion) Qty: 30 0RF potassium chloride [Klor-Con 10] 10 mEq Tablet Extended Release 10 meq PO DAILY Qty: 30 0RF menthol-zinc oxide [Calmoseptine] 0.44-20.6 % Ointment 1 applic TOPICAL BID PRN (Reason: Bed sore) carica papaya Tablet,Chewable 4 tab PO TIDWM midodrine 10 mg Tablet 10 mg PO TID Rx Instructions: hold if BP is under 140/80 metoprolol tartrate 25 mg tablet 12.5 mg PO BID Qty: 60 0RF Rx Instructions: Hold if blood pressure below 110/90 or heart rate below 60 amiodarone 200 mg Tablet 200 mg PO BIDWMEAL Qty: 60 0RF acetaminophen 325 mg Tablet 650 mg PO Q6H PRN (Reason: pain/increased temp) sertraline 100 mg Tablet 100 mg PO BEDTIME lidocaine 5 % Adhesive Patch,Medicated 1 patch TOPICAL BID Rx Instructions: ON for 12 hours in AM, take OFF for 12 hours in PM ondansetron 4 mg tablet,disintegrating 4 mg PO Q6H PRN (Reason: Nausea And Vomiting) lorazepam [Ativan] 1 mg tablet 1 mg PO BID PRN (Reason: Anxiety) Discharge Orders: Discharge Order (Routine); Ordered 05/21/24 Ordered By: Delores Marte Referrals: Donavan Champagne DO [Primary Care Provider] - Donavan Rizo MD [Hospitalist] - (new onset thrombocytopenia) Discharge Diet: Diabetic Discharge Activity: Increase activity as tolerated Patient Instructions: Levofloxacin (By mouth), Dialysis Diet (DC), Hemodialysis (DC), Opioid Safety Plan of Treatment: She developed new onset thrombocytopenia recently with most recent platelet count of 80,000. Suspicion for medication induced thrombocytopenia hence inpatient Pepcid and Lovenox discontinued on discharge. Need further workup and follow-up with repeat platelet counts as an outpatient. Patient to follow-up for dialysis as per schedule. Need hematology oncology outpatient clinic follow-up for thrombocytopenia. Discharge Attestations Time Spent in Discharge Care*: less than 30 min Status at Discharge: Cognitive status at discharge: cognitively intact , Behavioral status at discharge: cooperative , Quality Metrics Clinical Quality Measures [ No reported AMI, CVA or VTE this stay] Coding Level of Care Code Acute Code for Chg Fwd Diagnoses End stage renal disease on dialysis N18.6; Z99.2 Shortness of breath R06.02 Time Spent (min) 20
--- NOTE | 2024-05-21 13:56 | PC.NURSE ---
This nurse called report to SHEMAR Damon at 1350. MISTY Sierra is setting up a medicaid ride.
--- NOTE | 2024-05-21 15:48 | PC.NURSE ---
This nurse attempted to give pt her 1500 dose of Midodrine, however, pt would not wake up enough to take it. Will reattempt.
--- NOTE | 2024-05-21 16:41 | PC.NURSE ---
This nurse called patients , Gerardo, and informed him that pt will be discharging back to [facility] this evening, but I am unsure as to what time. Gerardo verbalized understanding.
[2024-05-21] MEDS: amiodarone 200 mg Tablet PO (17:19)
== END 2024-05-21 20:55 | disposition skilled nursing facility (03) ==
LOC: ER 12:27 → MEDSURG 13:01
PROVIDERS: Hospitalist; Admitting Provider Internal Medicine; Emergency Provider Family Medicine; PCP Internal Medicine; Visit Provider Internal Medicine
DX: N18.6 End stage renal disease (principal); Z99.2 Dependence on renal dialysis; D63.1 Anemia in chronic kidney disease; J96.01 Acute respiratory failure with hypoxia; I48.91 Unspecified atrial fibrillation; E11.22 Type 2 diabetes mellitus with diabetic chronic kidney disease; I13.0 Hypertensive heart and chronic kidney disease with heart failure and stage 1 through stage 4 chronic kidney disease, or unspecified chronic kidney disease; I50.9 Heart failure, unspecified; Z99.81 Dependence on supplemental oxygen; E87.5 Hyperkalemia; I25.2 Old myocardial infarction; I48.20 Chronic atrial fibrillation, unspecified; I25.10 Atherosclerotic heart disease of native coronary artery without angina pectoris; Z86.16 Personal history of COVID-19; M79.7 Fibromyalgia; E03.9 Hypothyroidism, unspecified; J44.9 Chronic obstructive pulmonary disease, unspecified; E78.5 Hyperlipidemia, unspecified; Z87.891 Personal history of nicotine dependence; Z82.49 Family history of ischemic heart disease and other diseases of the circulatory system
CPT/HCPCS: 36415; 36416; 71045; 80048; 80053; 81001; 81301; 82962; 83735; 83880; 84100; 84145; 84484; 85025; 85651; 86705; 86706; 86803; 87086; 87340; 90935; 93005; 94640; 94664; 96365; 96366; 96372; 96375; 96376; 99285; G0378; J0696; J0885; J1644; J1650; J2185; J7626

== ENCOUNTER 2024-05-22 12:39 | Emergency (ER) | payer MEDICARE, MEDICAID, SELFPAY ==
--- NOTE | 2024-05-22 12:45 | ECG_ITS ---
[facility] Test Date: 2024-05-22 Pat Name: Myesha Parker Department: Room: Gender: Female Rn Surgery: : 1950 Requested By: Karma Garner Order Number: [id number] Wilbur MD: Victoriano White M.D. Measurements Intervals [place] Rate: 102 P: 0 AL: 0 QRS: -87 QRSD: 181 T: 92 QT: 420 QTc: 548 Interpretive Statements ATRIAL FIBRILLATION WITH RAPID VENTRICULAR RESPONSE RIGHT BUNDLE BRANCH BLOCK [120+ ms QRS DURATION, UPRIGHT V1, 40+ ms S IN I/aVL/V4/V5/V6] LEFT ANTERIOR FASCICULAR BLOCK [QRS AXIS <= -45, QR IN I, RS IN II] Compared to ECG 05/19/2024 12:23:46 Myocardial infarct finding no longer present Electronically Signed On 05-22-2024 16:34:54 CDT by Victoriano White M.D. [email or web address]
--- NOTE | 2024-05-22 12:45 | XR_ITS ---
WS: [id number] Portable AP semiupright chest, 05/22/2024 Clinical Data: sob Comparison: Portable chest, 05/19/2024 Findings: The pulmonary vascularity is probably increased. There is a moderate right pleural effusion and a small left effusion. The heart is enlarged but unchanged. The aortic arch and descending thora cic aorta show calcification. There are no nodules or masses. No pneumothorax is seen. The right dial ysis catheter remains in the same position. XR/XR chest 1V portable [id number] Impression: 1. Cardiomegaly with pulmonary vascular congestion unchanged. 2. Bilateral pleural effusions. 3. Atherosclerosis.
[2024-05-22 12:46] VITALS: BP 92/47; PULSE 112; RESP 16; TEMP 36.8; O2SAT 98
--- NOTE | 2024-05-22 12:47 | ED_ITS ---
HPI - General Adult 2 General: Chief complaint: Weakness Stated complaint: LOW BP; DIZZY Time Seen by Provider: 05/22/24 12:42 Source: patient and EMS Mode of arrival: EMS Limitations: no limitations History of Present Illness: 73-year-old female is very well-known to the ER patient was at dialysis clinic today and was hypotensive she has had a history of this in the past I did give her midodrine was not able to do dialysis she last had dialysis Sunday. Per EMS he states that her blood pressure was in the 110s when they arrived they state the dialysis it was in the 80s patient has no acute complaints denies any pain denies any fevers Associated symptoms: Deny chest pain, dyspnea, headache(s), nausea, rash or vomiting Related Data Home Medications Medication Instructions Recorded Confirmed cholecalciferol (vitamin D3) 25 1,000 unit PO DAILY 10/12/19 05/22/24 mcg (1,000 unit) tablet (Vitamin D3) calcium carbonate (Calcium 600) 600 mg PO DAILY 06/27/21 05/22/24 levothyroxine 150 mcg tablet 150 mcg PO DAILY@06 06/27/21 05/22/24 (Euthyrox) pantoprazole 40 mg tablet,delayed 40 mg PO BID 09/13/21 05/22/24 release glucose 4 gram chewable tablet 4 g PO PRN PRN Hypoglycemia 06/17/23 05/22/24 bisacodyl 10 mg rectal suppository 10 mg RI DAILY PRN if no bm x3 days 09/30/23 05/22/24 (Dulcolax (bisacodyl)) meclizine 25 mg tablet 25 mg PO TID PRN Nausea And 09/30/23 05/22/24 Vomiting nystatin 100,000 unit/gram topical See Rx Instructions .Route 09/30/23 05/22/24 powder ([facility]) .COMPLEX PRN Rash magnesium L-lactate 84 mg 84 mg PO DAILY@08 10/12/23 05/22/24 tablet,extended release methotrexate sodium 2.5 mg tablet 6 mg PO Q7D 10/12/23 05/22/24 folic acid 1 mg tablet 1 mg PO DAILY 01/09/24 05/22/24 melatonin 1 mg tablet 1 mg PO BEDTIME 01/09/24 05/22/24 lidocaine 5 % topical patch 1 patch topical BID 03/17/24 05/22/24 sertraline 100 mg tablet 100 mg PO BEDTIME 03/17/24 05/22/24 ondansetron 4 mg disintegrating 4 mg PO Q6H PRN Nausea And Vomiting 03/28/24 05/22/24 tablet albuterol sulfate 0.63 mg/3 mL 0.63 mg inhalation TID PRN 04/22/24 05/22/24 solution for nebulization Shortness Of Breath Or Wheezing lactulose 10 gram/15 mL (15 mL) 15 ml PO DAILY 04/22/24 05/22/24 oral solution polyethylene glycol 3350 17 gram 17 g PO DAILY 04/22/24 05/22/24 oral powder packet (Miralax) pyridoxine (vitamin B6) 500 mg 500 mg PO DAILY 04/22/24 05/22/24 tablet carica papaya 4 tab PO TIDWM 05/01/24 05/22/24 menthol 0.44 %-zinc oxide 20.6 % 1 applic topical BID PRN Bed sore 05/01/24 05/22/24 topical ointment (Calmoseptine) midodrine 10 mg tablet 10 mg PO TID 05/01/24 05/22/24 lorazepam 1 mg tablet (Ativan) 1 mg PO BID PRN Anxiety 05/15/24 05/22/24 acetaminophen 325 mg tablet 650 mg PO Q6H PRN pain/increased 05/19/24 05/22/24 temp Previous Rx's Medication Instructions Recorded nitroglycerin 0.4 mg sublingual 0.4 mg sublingual Q5M PRN Chest 02/08/21 tablet (Nitrostat) Pain #30 tabs fluticasone fur. 200 mcg-umeclid 1 inh inhalation DAILY #28 ea 06/20/23 62.5 mcg-vilant 25 mcg inhalat.powder (Trelegy Ellipta) insulin lispro 100 unit/mL See Rx Instructions .Route 08/17/23 subcutaneous solution (Humalog .COMPLEX #10 mL U-100 Insulin) aspirin 81 mg tablet,delayed 81 mg PO DAILY #30 tabs 10/19/23 release bumetanide 2 mg tablet 2 mg PO DAILY #90 tabs 04/25/24 guaifenesin 400 mg tablet 400 mg PO TID PRN congestion #30 04/25/24 tabs potassium chloride 10 mEq 10 meq PO DAILY #30 tabs 04/25/24 tablet,extended release (Klor-Con) amiodarone 200 mg tablet 200 mg PO BIDWMEAL #60 tabs 05/05/24 metoprolol tartrate 25 mg tablet 12.5 mg (1/2 x 25 mg) PO BID #60 05/05/24 tabs levofloxacin 500 mg tablet 500 mg PO DAILY 7 days #7 tabs 05/21/24 Allergies Allergy/AdvReac Type Severity Reaction Status Date / Time adhesive tape Allergy rash Verified 05/11/24 15:26 cinnamon Allergy sinus Verified 05/11/24 15:26 codeine Allergy unknown Verified 05/11/24 15:26 cedar Allergy sinus Uncoded 05/11/24 15:26 pine Allergy sinus Uncoded 05/11/24 15:26 pork food Allergy ADR-Nausea Uncoded 05/11/24 15:26 Review of Systems 2 Const: Denies: fever(s), chills, body aches or change in appetite ENMT: Denies: throat pain or dental pain Card: Denies: chest pain Resp: Denies: dyspnea GI: Denies: abdominal pain, nausea, vomiting or diarrhea Musc: Denies: neck pain or back pain Skin/Breast: Denies: rash Neuro: Denies: headache(s) PFSH ED 2 PFSH: Medical History Breath shortness Atrial fibrillation NSTEMI (non-ST elevated myocardial infarction) History of cardiovascular stress test 09/2023 History of stroke Diabetes mellitus, type II Myasthenia gravis listed in [facility] records Amber albicans infection 2022 Clostridioides difficile diarrhea 12/18 Inflammatory arthritis Sleep apnea in adult noncompliant with CPAP/BiPAP in outpt setting (machine feels different) Colon polyp Gastric polyposis UGIB (upper gastrointestinal bleed) 2020 Chronic atrial fibrillation not on chronic anticoagulation due to recurrent falls and prior GI bleed Congestive heart failure (CHF) Orthostatic hypotension Chronic post-traumatic stress disorder (PTSD) Major depressive disorder, recurrent episode, moderate with anxious distress Duodenal ulcer due to bacteria 08/16 Coronary artery disease Chronic knee pain Chronic low back pain COVID-14 August 2020 Seronegative rheumatoid arthritis of both hands Osteoarthritis of knees, bilateral Fibromyalgia Lung nodule Unstable angina Urgency incontinence Left renal mass COPD (chronic obstructive pulmonary disease) Oxygen dependent, 3-3.5 L at baseline Hypothyroidism Liver cirrhosis Hyperlipidemia Hypertension Recurrent UTI Surgical History S/P dialysis catheter insertion 07/2023 History of colonoscopy 06/23/22 History of esophagogastroduodenoscopy (EGD) 06/23/22 History of cholecystectomy History of thyroid surgery History of cardiac cath History of hysterectomy History of knee replacement Family History Other CAD (coronary artery disease) Cancer Denies family history of Anesthesia complication Bleeding disorder Social History Smoking and tobacco/nicotine status: former use of tobacco/nicotine Quit status (tobacco/nicotine): has quit using Year quit tobacco: 2005 Second hand smoke exposure: No Alcohol intake: never Substance/Drug Use: never Adopted: No Caregiver/support person: No Lives independently: No Household members: spouse Housing: Alf Marital status: Current occupational status: retired Current gender identity: Female Physical Exam 2 Const: COMMON NORMALS: patient oriented x3 HENMT: COMMON NORMALS: normocephalic and atraumatic HEAD & SCALP: n ormocephalic and atraumatic Eye: COMMON NORMALS: Equal, round and reactive pupils present and EOMs intact bilaterally PUPIL: Yes Equal, round and reactive pupils present Neck/C-Spine: COMMON NORMALS: full ROM and supple Chest: COMMONS NORMALS: normal inspection of the chest and normal palpation of entire chest wall Resp: COMMON NORMALS: normal respiratory effort, No retractions, No use of accessory muscles and clear to auscultation bilaterally AUSCULTATION: clear to auscultation bilaterally Cardio: COMMON NORMALS: regular rate, regular rhythm and No murmurs present (Cardio) RATE: regular rate RHYTHM: regular rhythm GI: COMMON NORMALS: Normal to inspection, nondistended, normoactive bowel sounds present, Soft to palpation, non-tender and no masses PALPATION: Yes Soft to palpation Extremity: COMMON NORMALS: normal to inspection and full ROM Neuro: COMMON NORMALS: patient oriented x3, moves all extremities and no focal motor deficits Psych: COMMON NORMALS: mental status grossly normal, Normal thought process present and cooperative THOUGHT PROCESS: Normal thought process present Skin: COMMON NORMALS: no rashes or lesions noted and no wounds GENERAL SKIN EXAM: no rashes or lesions noted Course 2 Vital Signs: Vital signs: Vital Signs Temperature 98.3 F 05/22/24 12:46 Pulse Rate 108 H 05/22/24 15:45 Respiratory Rate 20 H 05/22/24 14:30 Blood Pressure 105/55 05/22/24 15:45 Pulse Oximetry 100 05/22/24 15:45 Oxygen Delivery Me thod Nasal Cannula 05/22/24 15:00 Oxygen Flow Rate 3.5 05/22/24 15:00 MDM - General Adult Medical Decision Making Patient presents here with episode of hypotension she has been normotensive here been well-appearing did eat here blood work is at her baseline she stable for discharge back to [facility]. Medical Records I reviewed the patient's medical records. Lab Data I reviewed the patient's lab results. 05/22/24 13:27 05/22/24 13:27 Radiology Impressions Chest X-Ray 05/22/24 12:45 Impression: 1. Cardiomegaly with pulmonary vascular congestion unchanged. 2. Bilateral pleural effusions. 3. Atherosclerosis. Laboratory Results WBC 2.82 10^3/uL (3.29-11.43) L 05/22/24 13:27 RBC 2.32 10^6/uL (3.85-5.65) L 05/22/24 13:27 Hgb 7.20 g/dL (11.27-16.99) L 05/22/24 13:27 Hct 22.4 % (36-47) L 05/22/24 13:27 MCV 96.6 fl (85-98) 05/22/24 13:27 MCH 31.0 pg (27-33) 05/22/24 13:27 MCHC 32.1 g/dL (30-55) 05/22/24 13:27 RDW 17.2 % (12.1-15.1) H 05/22/24 13:27 Plt Count 68 10^3/cmm (157-399) L 05/22/24 13:27 MPV 9.5 fL (7.4-10.4) 05/22/24 13:27 Neut % (Auto) 84.7 % 05/22/24 13:27 Lymph % (Auto) 9.9 % 05/22/24 13:27 [place] % (Auto) 1.8 % 05/22/24 13:27 Eos % (Auto) 2.1 % 05/22/24 13:27 Baso % (Auto) 0.4 % 05/22/24 13:27 Neut # (Auto) 2.39 10^3/uL (1.8-7.7) 05/22/24 13:27 Lymph # (Auto) 0.3 10^3/uL (0.8-4.8) L 05/22/24 13:27 [place] # (Auto) 0.1 10^3/uL (0.2-0.9) L 05/22/24 13:27 Eos # (Auto) 0.1 10^3/uL (0.0-0.8) 05/22/24 13:27 Baso # (Auto) 0.0 10^3/uL (0.0-0.1) 05/22/24 13:27 Nucleated RBC % (auto) 0 % 05/22/24 13:27 Nucleated RBCs # 0.0 /100WBC 05/22/24 13:27 Sodium 139 mmol/L (136-145) 05/22/24 13:27 Potassium 4.3 mmol/L (3.5-5.1) 05/22/24 13:27 Chloride 101 mmol/L (98-107) 05/22/24 13:27 Carbon Dioxide 29 mmol/L (22-29) 05/22/24 13:27 Anion Gap 13.3 (5-19) 05/22/24 13:27 BUN 32 mg/dL (8-23) H 05/22/24 13:27 Creatinine 2.3 mg/dL (0.5-0.9) H 05/22/24 13:27 GFR Calculation Not Reportable 05/22/24 13:27 Glucose 59 mg/dL (65-115) L 05/22/24 13:27 POC Glucose 66 mg/dL (70-110) L 05/22/24 13:12 Calculated Osmolality 293 mOsm/kg (285-295) 05/22/24 13:27 Lactic Acid 1.1 mmol/L (0.5-2.2) 05/22/24 13:27 Calcium 8.7 mg/dL (8.5-10.5) 05/22/24 13:27 Total Bilirubin 0.6 mg/dL (0.15-1.2) 05/22/24 13:27 AST 48 U/L (0-32) H 05/22/24 13:27 ALT 35 U/L (0-33) H 05/22/24 13:27 Alkaline Phosphatase 222 U/L (35-105) H 05/22/24 13:27 NT-Pro-B Natriuret Pep 81604 pg/mL (0-450) H 05/22/24 13:27 Total Protein 6.1 g/dL (6.6-8.7) L 05/22/24 13:27 Albumin 2.9 g/dL (3.5-5.2) L 05/22/24 13:27 Globulin 3.2 g/dL (1.3-4.6) 05/22/24 13:27 All radiology interpretation(s) finalized by discharge Discharge Plan Discharge Patient Disposition: Home Clinical Impression: Hypotension Condition: Stable Prescriptions: No Action nitroglycerin [Nitrostat] 0.4 mg tablet, sublingual 0.4 mg SUBLINGUAL Q5M PRN (Reason: Chest Pain) Qty: 30 3RF Rx Instructions: MAX 3 DOSES PER EPISODE levothyroxine [Euthyrox] 150 mcg tablet 150 mcg PO DAILY@06 calcium carbonate [Calcium 600] 600 mg calcium (1,500 mg) tablet 600 mg PO DAILY cholecalciferol (vitamin D3) [Vitamin D3] 25 mcg (1,000 unit) Tablet 1,000 unit PO DAILY pantoprazole 40 mg tablet,delayed release (DR/EC) 40 mg PO BID glucose 4 gram tablet,chewable 4 g PO PRN PRN (Reason: Hypoglycemia) Trelegy Ellipta 200-62.5-25 mcg blister with device 1 inh INHALATION DAILY Qty: 28 0RF insulin lispro [Humalog U-100 Insulin] 100 unit/mL Solution See Rx Instructions .ROUTE .COMPLEX MDD 40 Qty: 10 0RF Rx Instructions: per sliding scale with meals 150-200=2 units 201-250=4 units 251-300=6 units 301-350=8 units 351-400=10 units 401-450=12 units meclizine 25 mg tablet 25 mg PO TID PRN (Reason: Nausea And Vomiting) bisacodyl [Dulcolax (bisacodyl)] 10 mg Suppository 10 mg RI DAILY PRN (Reason: if no bm x3 days ) nystatin [Nyamyc] 100,000 unit/gram powder See Rx Instructions .ROUTE .COMPLEX PRN (Reason: Rash) Rx Instructions: as directed every shift as needed (apply between thighs and affected areas twice a day as needed) methotrexate sodium 2.5 mg Tablet 6 mg PO Q7D Hold Instructions: Resume on 04/16/24. Rx Instructions: ON SUNDAY magnesium L-lactate 84 mg tablet extended release 84 mg PO DAILY@08 aspirin 81 mg Tablet,Delayed Release (Dr/Ec) 81 mg PO DAILY Qty: 30 0RF folic acid 1 mg tablet 1 mg PO DAILY melatonin 1 mg tablet 1 mg PO BEDTIME albuterol sulfate 0.63 mg/3 mL Solution For Nebulization 0.63 mg INHALATION TID PRN (Reason: Shortness Of Breath Or Wheezing) polyethylene glycol 3350 [Miralax] 17 gram Powder In Packet 17 g PO DAILY lactulose 10 gram/15 mL (15 mL) Solution 15 ml PO DAILY pyridoxine (vitamin B6) 500 mg Tablet 500 mg PO DAILY bumetanide 2 mg tablet 2 mg PO DAILY Qty: 90 0RF guaifenesin 400 mg tablet 400 mg PO TID PRN (Reason: congestion) Qty: 30 0RF potassium chloride [Klor-Con 10] 10 mEq Tablet Extended Release 10 meq PO DAILY Qty: 30 0RF menthol-zinc oxide [Calmoseptine] 0.44-20.6 % Ointment 1 applic TOPICAL BID PRN (Reason: Bed sore) carica papaya Tablet,Chewable 4 tab PO TIDWM midodrine 10 mg Tablet 10 mg PO TID Rx Instructions: hold if BP is under 140/80 metoprolol tartrate 25 mg tablet 12.5 mg PO BID Qty: 60 0RF Rx Instructions: Hold if blood pressure below 110/90 or heart rate below 60 amiodarone 200 mg Tablet 200 mg PO BIDWMEAL Qty: 60 0RF acetaminophen 325 mg Tablet 650 mg PO Q6H PRN (Reason: pain/increased temp) levofloxacin 500 mg tablet 500 mg PO DAILY 7 Days Qty: 7 0RF sertraline 100 mg Tablet 100 mg PO BEDTIME lidocaine 5 % Adhesive Patch,Medicated 1 patch TOPICAL BID Rx Instructions: ON for 12 hours in AM, take OFF for 12 hours in PM ondansetron 4 mg tablet,disintegrating 4 mg PO Q6H PRN (Reason: Nausea And Vomiting) lorazepam [Ativan] 1 mg tablet 1 mg PO BID PRN (Reason: Anxiety) Discharge Orders: Discharge ED (Routine); Ordered 05/22/24 Ordered By: Karma Garner Referrals: Donavan Champagne DO [Primary Care Provider] - Discharge Diet: Advance as tolerated Discharge Activity: Resume usual activity Patient Instructions: Hypertension (ED) Coding Level of Care Code ED Farm Agent for Dougie Samson
[2024-05-22 13:32] LABS: Glucose Point of Care 66 mg/dL (70-110)
--- NOTE | 2024-05-22 13:32 | PC.PHAR ---
patient is from [facility] faxing med list 05/22/24 1:30pm
[2024-05-22 13:41] VITALS: BP 106/60; PULSE 105; O2SAT 98
--- NOTE | 2024-05-22 13:52 | PC.NURSE ---
Dr. Garner okayed pt to eat and drink. given OJ 1 cup and chocolate pudding.
[2024-05-22 14:04] LABS: Basophils % 0.4 %; Eosinophils # 0.1 10^3/uL (0.0-0.8); Eosinophils % 2.1 %; Hematocrit 22.4 % (36-47); Lymphocytes # 0.3 10^3/uL (0.8-4.8); Lymphocytes % 9.9 %; Mean Corpuscular HGB Conc 32.1 g/dL (30-55); Mean Corpuscular Volume 96.6 fl (85-98); Mean Platelet Volume 9.5 fL (7.4-10.4); Monocytes # 0.1 10^3/uL (0.2-0.9); Monocytes % 1.8 %; Neutrophils # 2.39 10^3/uL (1.8-7.7); Neutrophils % 84.7 %; Nucleated Red Blood Cells % 0 %; Platelet Count 68 10^3/cmm (157-399); Red Blood Count 2.32 10^6/uL (3.85-5.65); Red Cell Distribution Width 17.2 % (12.1-15.1); White Blood Count 2.82 10^3/uL (3.29-11.43)
[2024-05-22 14:11] LABS: Lactic Sepsis W/Reflex 1.1 mmol/L (0.5-2.2)
[2024-05-22 14:21] LABS: Alanine Aminotransferase 35 U/L (0-33); Albumin Level 2.9 g/dL (3.5-5.2); Alkaline Phosphatase 222 U/L (35-105); Anion Gap 13.3 (5-19); Aspartate Amino Transferase 48 U/L (0-32); Blood Urea Nitrogen 32 mg/dL (8-23); Calcium 8.7 mg/dL (8.5-10.5); Carbon Dioxide 29 mmol/L (22-29); Chloride 101 mmol/L (98-107); Globulin 3.2 g/dL (1.3-4.6); Glucose 59 mg/dL (65-115); Osmolality Calculated 293 mOsm/kg (285-295); Potassium 4.3 mmol/L (3.5-5.1); Sodium 139 mmol/L (136-145); Total Bilirubin 0.6 mg/dL (0.15-1.2); Total Protein 6.1 g/dL (6.6-8.7)
[2024-05-22 14:30] VITALS: BP 117/53; PULSE 115; RESP 20; O2SAT 98
[2024-05-22 14:34] LABS: Slide Review Slide Review Perform
[2024-05-22 14:48] LABS: NT Pro B Type Natriuretic Pept 37463 pg/mL (0-450)
[2024-05-22 15:00] VITALS: BP 102/53; PULSE 108; O2SAT 99
--- NOTE | 2024-05-22 15:07 | PC.NURSE ---
pt checked, changed, large BM noted. pt repositioned.
--- NOTE | 2024-05-22 15:17 | PC.NURSE ---
this nurse called [facility], their transport is to come pickling solution maker pt.
[2024-05-22 15:45] VITALS: BP 105/55; PULSE 108; O2SAT 100
== END 2024-05-22 15:47 | disposition home or self-care (01) ==
PROVIDERS: Emergency Provider Emergency Medicine; PCP Internal Medicine
DX: I95.9 Hypotension, unspecified (principal); Z99.2 Dependence on renal dialysis; Z79.899 Other long term (current) drug therapy
CPT/HCPCS: 36416; 71045; 80053; 82962; 83605; 83880; 85025; 93005; 99285

== ENCOUNTER → 2024-05-23 11:07 | Outpatient (BNVA) | payer MEDICARE, MEDICAID, SELFPAY | PROVIDERS: PCP Internal Medicine; Visit Provider Nurse Practitioner Family | DX: I48.20 Chronic atrial fibrillation, unspecified (principal); I50.33 Acute on chronic diastolic (congestive) heart failure; Z87.891 Personal history of nicotine dependence; I45.10 Unspecified right bundle-branch block; R94.31 Abnormal electrocardiogram [ECG] [EKG]; I21.9 Acute myocardial infarction, unspecified | CPT/HCPCS: 93005; 99214 ==

== ENCOUNTER 2024-05-26 00:54 | Inpatient (IN) | payer MEDICARE, MEDICAID, SELFPAY ==
[2024-05-26] VITALS (117 sets, daily range): BP systolic 59–158; BP diastolic 40–99; PULSE 0–158; RESP 0–30; TEMP 36.3–36.9; O2SAT 74–100; BMI 33.6; BMI 33.8
--- NOTE | 2024-05-26 00:57 | XRR_ITS ---
PROCEDURE INFORMATION: Exam: XR Chest Exam date and time: 05/26/2024 1:39 AM Age: 73 years old Clinical indication: Shortness of breath; Additional info: SOB TECHNIQUE: Imaging protocol: Radiologic exam of the chest. Views: 1 view. COMPARISON: CR (CHEST, ) 05/19/2024 6:21 AM FINDINGS: Tubes, catheters and devices: Endotracheal tube terminates approximately 2.7 cm above the humberto. Stable position of right chest dual lumen central venous catheter, terminating about the SVC. Lungs: Stable to slightly worsened diffuse hazy airspace opacities throughout the bilateral lungs. Pleural spaces: Persistent coxrz-edhkrzx-ocgz-left pleural effusions. No distinct pneumothorax. Heart/Mediastinum: Cardiomediastinal silhouette is midline and enlarged, stable. Bones/joints: Osseous structures are unchanged. Other findings: Patient is rotated to the right. XR/XR chest 1V portable [id number] IMPRESSION: 1. Persistent cjlnq-momoipw-cxgx-left pleural effusions. 2. Stable to slightly worsened diffuse hazy airspace opacities throughout the bilateral lungs. This may represent pulmonary edema. 3. Cardiomediastinal silhouette is midline and enlarged, stable.
[2024-05-26] MEDS: succinylcholine 20 mg/mL SDV 10mL 100 MG IVP (01:06)
[2024-05-26] MEDS: etomidate 2 mg/mL INJ SDV 10 mL 20 MG IVP (01:06)
[2024-05-26 01:13] LABS: Basophils % 0.4 %; Eosinophils # 0.1 10^3/uL (0.0-0.8); Eosinophils % 2.1 %; Hematocrit 24.5 % (36-47); Lymphocytes # 0.6 10^3/uL (0.8-4.8); Lymphocytes % 19.4 %; Mean Corpuscular HGB Conc 29.8 g/dL (30-55); Mean Corpuscular Hemoglobin 31.1 pg (27-33); Mean Corpuscular Volume 104.3 fl (85-98); Mean Platelet Volume 11.2 fL (7.4-10.4); Monocytes # 0.1 10^3/uL (0.2-0.9); Monocytes % 2.5 %; Neutrophils % 73.8 %; Nucleated Red Blood Cells % 1.1 %; Platelet Count 38 10^3/cmm (157-399); Red Blood Count 2.35 10^6/uL (3.85-5.65); Red Cell Distribution Width 17.7 % (12.1-15.1); White Blood Count 2.84 10^3/uL (3.29-11.43)
[2024-05-26] MEDS: fentaNYL 1,000 MCG/100 ML BAG 2.5 MCG IV (01:15)
[2024-05-26] MEDS: propofol 1,000 MG/100 ML INJ 2.75 MG IV (01:15)
[2024-05-26 01:29] LABS: Slide Review Slide Review Perform
[2024-05-26 01:35] LABS: Troponin(5th) Baseline 66 ng/L (0-10)
[2024-05-26 01:41] LABS: Lactic Sepsis W/Reflex 4.5 mmol/L (0.5-2.2)
[2024-05-26] MEDS: ipratropium-albuterol 3 mL Neb INHALATION ×3 (01:41→13:46)
[2024-05-26] MEDS: piperacillin-tazobactam 4.5 GM in sodium chloride 0.9% (plus) 50 ML IV (02:00)
[2024-05-26] MEDS: norepinephrine 4 MG/250 ML BAG 7.5 MG IV (02:00)
--- NOTE | 2024-05-26 02:24 | ECG_ITS ---
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 Measurements Intervals [place] Rate: 97 P: 0 IA: 0 QRS: 265 QRSD: 185 T: 59 QT: 466 QTc: 592 Interpretive Statements ATRIAL FIBRILLATION RIGHT AXIS DEVIATION [QRS AXIS > 100] RIGHT BUNDLE BRANCH BLOCK [120+ ms QRS DURATION, UPRIGHT V1, 40+ ms S IN I/aVL/V4/V5/V6] POSSIBLE SEPTAL MYOCARDIAL INFARCTION , OF INDETERMINATE AGE [30 ms Q WAVE IN V1/V2] Compared to ECG 05/23/2024 11:29:11 No significant changes Electronically Signed On 05-26-2024 18:44:27 CDT by Victoriano White M.D. [id number]
[2024-05-26 02:37] LABS: Blood Gas Allen Test Pos; Blood Gas Operator Identificat CL; Blood Gas Sample Type Arterial; Carboxyhemoglobin 1.5 %THgb (0.4-20.1); Oxygen Device VENT
[2024-05-26] MEDS: vancomycin 1,000 MG in sodium chloride 0.9% 250 ML 250 MG IV (02:39)
[2024-05-26 02:47] LABS: ABG PCO2 35.5 mmHg (35-45); ABG PH Result 7.41 (7.35-7.45); Arterial Blood Gas Hematocrit 17.4 % (37-47); Blood Gas Sample Site Brachial, right; HCO3 ABG 22.5 mmol/L (22-26); HGB O2 Sat 96.6 % (95-100); Methemoglobin 1.3 % (0.4-1.5); PO2 FiO2 Ratio Arterial Blood 295; Total Hemoglobin 5.7 g/dL (12-16)
[2024-05-26 02:58] LABS: Reflex Lactate Order REFLEX LACTIC ORDERD
[2024-05-26 03:03] LABS: Covid PCR NEGATIVE (Negative); Influenza A NEGATIVE (Negative); Influenza B NEGATIVE (Negative); Respiratory Syncytial Virus Ce NEGATIVE (Negative)
[2024-05-26 03:10] LABS: Alanine Aminotransferase 34 U/L (0-33); Alkaline Phosphatase 206 U/L (35-105); Aspartate Amino Transferase 69 U/L (0-32); Blood Urea Nitrogen 37 mg/dL (8-23); Carbon Dioxide 23 mmol/L (22-29); Chloride 106 mmol/L (98-107); Creatinine Clr Calc Pharmacy 21.7471; Globulin 1.9 g/dL (1.3-4.6); Glucose 172 mg/dL (65-115); Magnesium 1.4 mg/dL (1.7-2.3); NT Pro B Type Natriuretic Pept 29883 pg/mL (0-450); Osmolality Calculated 297 mOsm/kg (285-295); Sodium 137 mmol/L (136-145); Total Bilirubin 0.4 mg/dL (0.15-1.2); Total Protein 3.9 g/dL (6.6-8.7)
--- NOTE | 2024-05-26 03:20 | PC.NURSE ---
pt presented to ed unresponsive. pt on nonbreather at time of arrival. etomidate and succinylcholine administered with MD at bedside at listed times and dosages in OCT. MD intubation completed at 0106.
--- NOTE | 2024-05-26 03:29 | CTR_ITS ---
PROCEDURE INFORMATION: Exam: CTA Chest With Contrast Exam date and time: 05/26/2024 4:49 AM Age: 73 years old Clinical indication: Shortness of breath; Additional info: Resp failure TECHNIQUE: Imaging protocol: Computed tomographic angiography of the chest with contrast. Exam focused on the arteries. 3D rendering (Not supervised by radiologist): MIP and/or 3D reconstructed images were created by the technologist. Radiation optimization: All CT scans at this facility use at least one of these dose optimization techniques: automated exposure control; mA and/or kV adjustment per patient size (includes targeted exams where dose is matched to clinical indication); or iterative reconstruction. Contrast material: OMNI 350; Contrast volume: 200 ml; Contrast route: INTRAVENOUS (IV); COMPARISON: CT angio chest PE protcl [id number] 05/01/2024 4:24 PM RADIATION DOSE METRICS: Total DLP (mGy-cm): 932.79 FINDINGS: Tubes, catheters and devices: A dialysis catheter is placed with its tip at the superior cavoatrial junction. An endotracheal tube is placed with tip 2.3 cm from the humberto. A nasogastric tube is present with its tip at least proximal stomach. Pulmonary arteries: Normal. No pulmonary emboli. Aorta: Unremarkable. No aortic aneurysm. No aortic dissection. Lungs: See Pleural spaces finding. Pleural spaces: There are bilateral pleural effusions, right larger than left. Strandy and patchy opacities with consolidation is seen superimposed over the pleural effusions bilaterally appearing worse today compared with 05/01/2024. These findings suggest worsening bilateral pneumonia. Heart: There are calcifications of the mitral valve annulus. Cardiac silhouette is prominent. Coronary arteries: There are prominent coronary artery calcifications. Lymph nodes: Unremarkable. No enlarged lymph nodes. Bones/joints: Unremarkable. No acute fracture. Soft tissues: Unremarkable. CT/CT angio chest PE protcl [id number] IMPRESSION: 1. There is no evidence for pulmonary emboli. 2. Worsening bilateral infiltrates superimposed over bilateral pleural effusions findings compatible with pneumonia. 3. Stable cardiomegaly
[2024-05-26 03:52] LABS: Troponin 5 2HR 61.93 ng/L (0-10)
--- NOTE | 2024-05-26 03:52 | ECG_ITS ---
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 Measurements Intervals [place] Rate: 99 P: 36 NV: 261 QRS: 257 QRSD: 179 T: 58 QT: 442 QTc: 569 Interpretive Statements ATRIAL FIBRILLATION LEFT ATRIAL ENLARGEMENT [-0.15mV P-WAVE IN V1/V2] RIGHT AXIS DEVIATION [QRS AXIS > 100] RIGHT BUNDLE BRANCH BLOCK [120+ ms QRS DURATION, UPRIGHT V1, 40+ ms S IN I/aVL/V4/V5/V6] POSSIBLE SEPTAL MYOCARDIAL INFARCTION , OF INDETERMINATE AGE [30 ms Q WAVE IN V1/V2] Compared to ECG 05/26/2024 02:24:57 First degree AV block now present Atrial abnormality now present Myocardial infarct finding still present Electronically Signed On 05-26-2024 18:56:06 CDT by Victoriano White M.D. [id number]
[2024-05-26 03:53] LABS: Troponin 5 2HR Delta -4.07 ABS# (0-10)
[2024-05-26 04:18] LABS: Reflex FDPQ test REFLEX FDP QUEST TES
--- NOTE | 2024-05-26 04:30 | P.HP_ITS ---
Providers/Chief Complaint 2 Primary Care Provider: Donavan Champagne DO Chief Complaint: UNRESPONSIVE History of Present Illness 73-year-old lady with ESRD on hemodialysis, DM 2, CAD, diastolic congestive heart failure, pulmonary hypertension, A-fib, COPD, sleep apnea not on CPAP, liver cirrhosis, myasthenia gravis, seronegative rheumatoid arthritis, history of C. difficile, hypothyroidism, depression, other medical problems, recently hospitalized due to shortness of breath with bilateral infiltrates and effusions, with missed dialysis, with decompensation of CHF, possible pneumonia, received meropenem, ceftriaxone and Levaquin. Underwent dialysis, was discharged to [facility] on 05/21. At discharge also with noted thrombocytopenia, thought possibly related to Lovenox. Has been referred to follow-up with hematology. Was brought into the ED today by EMS with acute respiratory failure, saturations reported 60s-70s at [facility], ashen appearance, subsequently with AMS on NRB despite improvement in sats, blood pressures soft. Intubated in ED, and had a central line placed. Chest x-ray with bilateral hazy opacities, here with tachycardia, leukopenia, possible sepsis. Received fluid resuscitation, started on Levophed. Blood cultures drawn, started on Vanco and Zosyn. LA 4.5. X-ray also with cardiomegaly, pleural effusions, mediastinal widening. Also with anemia, thrombocytopenia, platelets worse down at 38,000. Coronavirus, influenza, RSV PCR studies negative. Review of Systems 2 General: Reports: ROS unobtainable due to medical condition and ROS unobtainable due to mental status ( denies that she had known additional recent complaints. ) GI: Reports: other (No vomiting or aspiration.); Denies: diarrhea Medications/Allergies Home Medications Medication Instructions Recorded Confirmed Last Taken Type cholecalciferol (vitamin D3) 25 1,000 unit PO DAILY 10/12/19 05/23/24 05/22/24 History mcg (1,000 unit) tablet (Vitamin D3) nitroglycerin 0.4 mg sublingual 0.4 mg sublingual Q5M PRN Chest 02/08/21 05/23/24 Unknown Rx tablet (Nitrostat) Pain #30 tabs calcium carbonate (Calcium 600) 600 mg PO DAILY 06/27/21 05/23/24 05/22/24 History levothyroxine 150 mcg tablet 150 mcg PO DAILY@06 06/27/21 05/23/24 05/22/24 History (Euthyrox) pantoprazole 40 mg tablet,delayed 40 mg PO BID 09/13/21 05/23/24 05/22/24 History release glucose 4 gram chewable tablet 4 g PO PRN PRN Hypoglycemia 06/17/23 05/23/24 Unknown History fluticasone fur. 200 mcg-umeclid 1 inh inhalation DAILY #28 ea 06/20/23 05/23/24 05/22/24 Rx 62.5 mcg-vilant 25 mcg inhalat.powder (Trelegy Ellipta) insulin lispro 100 unit/mL See Rx Instructions .Route 08/17/23 05/23/24 05/22/24 Rx subcutaneous solution (Humalog .COMPLEX #10 mL U-100 Insulin) bisacodyl 10 mg rectal suppository 10 mg UT DAILY PRN if no bm x3 days 09/30/23 05/23/24 11/22/23 History (Dulcolax (bisacodyl)) meclizine 25 mg tablet 25 mg PO TID PRN Nausea And 09/30/23 05/23/24 04/30/24 12:20 History Vomiting nystatin 100,000 unit/gram topical See Rx Instructions .Route 09/30/23 05/23/24 Unknown History powder ([facility]) .COMPLEX PRN Rash magnesium L-lactate 84 mg 84 mg PO DAILY@08 10/12/23 05/23/24 05/22/24 History tablet,extended release methotrexate sodium 2.5 mg tablet 6 mg PO Q7D 10/12/23 05/23/24 05/17/24 History aspirin 81 mg tablet,delayed 81 mg PO DAILY #30 tabs 10/19/23 05/23/24 05/22/24 Rx release folic acid 1 mg tablet 1 mg PO DAILY 01/09/24 05/23/24 05/22/24 History melatonin 1 mg tablet 1 mg PO BEDTIME 01/09/24 05/23/24 05/18/24 History lidocaine 5 % topical patch 1 patch topical BID 03/17/24 05/23/24 05/22/24 History sertraline 100 mg tablet 100 mg PO BEDTIME 03/17/24 05/23/24 05/18/24 History ondansetron 4 mg disintegrating 4 mg PO Q6H PRN Nausea And Vomiting 03/28/24 05/23/24 05/22/24 History tablet albuterol sulfate 0.63 mg/3 mL 0.63 mg inhalation TID PRN 04/22/24 05/23/24 05/14/24 09:05 History solution for nebulization Shortness Of Breath Or Wheezing lactulose 10 gram/15 mL (15 mL) 15 ml PO DAILY 04/22/24 05/23/24 05/18/24 History oral solution polyethylene glycol 3350 17 gram 17 g PO DAILY 04/22/24 05/23/24 05/22/24 History oral powder packet (Miralax) pyridoxine (vitamin B6) 500 mg 500 mg PO DAILY 04/22/24 05/23/24 05/22/24 History tablet bumetanide 2 mg tablet 2 mg PO DAILY #90 tabs 04/25/24 05/23/24 05/22/24 Rx guaifenesin 400 mg tablet 400 mg PO TID PRN congestion #30 04/25/24 05/23/24 Unknown Rx tabs potassium chloride 10 mEq 10 meq PO DAILY #30 tabs 04/25/24 05/23/24 05/22/24 Rx tablet,extended release (Klor-Con) carica papaya 4 tab PO TIDWM 05/01/24 05/23/24 05/22/24 History menthol 0.44 %-zinc oxide 20.6 % 1 applic topical BID PRN Bed sore 05/01/24 05/23/24 05/22/24 History topical ointment (Calmoseptine) midodrine 10 mg tablet 10 mg PO TID 05/01/24 05/23/24 05/22/24 History metoprolol tartrate 25 mg tablet 12.5 mg (1/2 x 25 mg) PO BID #60 05/05/24 05/23/24 05/22/24 Rx tabs lorazepam 1 mg tablet (Ativan) 1 mg PO BID PRN Anxiety 05/15/24 05/23/24 05/18/24 History acetaminophen 325 mg tablet 650 mg PO Q6H PRN pain/increased 05/19/24 05/23/24 05/21/24 History temp levofloxacin 500 mg tablet 500 mg PO DAILY 7 days #7 tabs 05/21/24 05/23/24 05/22/24 Rx amiodarone 200 mg tablet 200 mg PO DAILY #60 tabs 05/23/24 05/23/24 Unknown Rx Allergies Allergy/AdvReac Type Severity Reaction Status Date / Time adhesive tape Allergy rash Verified 05/23/24 10:50 cinnamon Allergy sinus Verified 05/23/24 10:50 codeine Allergy unknown Verified 05/23/24 10:50 cedar Allergy sinus Uncoded 05/23/24 10:50 pine Allergy sinus Uncoded 05/23/24 10:50 pork food Allergy ADR-Nausea Uncoded 05/23/24 10:50 PFSH Acute 2 PFSH: Medical History Breath shortness Atrial fibrillation NSTEMI (non-ST elevated myocardial infarction) History of cardiovascular stress test 09/2023 History of stroke Diabetes mellitus, type II Myasthenia gravis listed in [facility] records Amber albicans infection 2022 Clostridioides difficile diarrhea 12/18 Inflammatory arthritis Sleep apnea in adult noncompliant with CPAP/BiPAP in outpt setting (machine feels different) Colon polyp Gastric polyposis UGIB (upper gastrointestinal bleed) 2020 Chronic atrial fibrillation not on chronic anticoagulation due to recurrent falls and prior GI bleed Congestive heart failure (CHF) Orthostatic hypotension Chronic post-traumatic stress disorder (PTSD) Major depressive disorder, recurrent episode, moderate with anxious distress Duodenal ulcer due to bacteria 08/16 Coronary artery disease Chronic knee pain Chronic low back pain COVID-14 August 2020 Seronegative rheumatoid arthritis of both hands Osteoarthritis of knees, bilateral Fibromyalgia Lung nodule Unstable angina Urgency incontinence Left renal mass COPD (chronic obstructive pulmonary disease) Oxygen dependent, 3-3.5 L at baseline Hypothyroidism Liver cirrhosis Hyperlipidemia Hypertension Recurrent UTI Surgical History S/P dialysis catheter insertion 07/2023 History of colonoscopy 06/23/22 History of esophagogastroduodenoscopy (EGD) 06/23/22 History of cholecystectomy History of thyroid surgery History of cardiac cath History of hysterectomy History of knee replacement Family History Other CAD (coronary artery disease) Cancer Denies family history of Anesthesia complication Bleeding disorder Social History Smoking and tobacco/nicotine status: former use of tobacco/nicotine Quit status (tobacco/nicotine): has quit using Year quit tobacco: 2005 Second hand smoke exposure: No Alcohol intake: never Substance/Drug Use: never Adopted: No Caregiver/support person: No Lives independently: No Household members: spouse Housing: Skilled Nursing Marital status: Current occupational status: retired Current gender identity: Female Vitals/I&O/Wt Last Vital Signs Pulse 110 H 05/26/24 04:25 Resp 16 05/26/24 04:25 BP 96/59 05/26/24 04:25 Pulse Ox 94 05/26/24 04:25 O2 Del Method Mechanical Ventilation 05/26/24 02:56 O2 Flow Rate 10 05/26/24 00:55 FiO2 24 05/26/24 03:58 05/25/24 05/25/24 05/26/24 14:59 22:59 06:59 Intake Total 2819.218 / 2819.218 Balance 2819.218 / 2819.218 Weight last 48 hrs Weight 91.626 kg Physical Exam 2 Narrative: Accompanied by her . Const: GENERAL APPEARANCE: patient mechanically ventilated NUTRITIONAL APPEARANCE: overweight ORIENTATION/CONSCIOUSNESS: not awake HENMT: COMMON NORMALS: oropharynx normal Eye: OTHER: Pupils equal. Neck/C-Spine: COMMON NORMALS: no JVD Resp: EFFORT & INSPECTION: Yes other (Coarse lung sounds.) AUSCULTATION: c rackles and diminished lung sounds Cardio: COMMON NORMALS: no JVD, regular rhythm, S1 normal heart sound present, S2 normal heart sound present and No murmurs present (Cardio) RHYTHM: regular rhythm HEART SOUNDS: S1 normal heart sound present and S2 normal heart sound present GI: COMMON NORMALS: Normal to inspection, nondistended, normoactive bowel sounds present, Soft to palpation and non-tender PALPATION: Yes Soft to palpation Extremity: COMMON NORMALS: no joint enlargement and no pedal edema Skin: COMMON NORMALS: no rashes or lesions noted GENERAL SKIN EXAM: no rashes or lesions noted Urinary Catheter Management: Manzanares: Cath Placed During This Visit: yes Urinary Catheter Date of Insertion: 05/26/24 Urinary Catheter Time of Insertion: 01:10 Sepsis: Is patient septic: Yes Focused sepsis exam performed: Yes F ocused sepsis exam: Intubated, sedated, currently without mottling or cyanosis. Good capillary refill. Data 05/26/24 01:07 05/26/24 02:17 Micro: Microbiology 05/26/24 01:09 Blood Culture - Preliminary Blood SPECIMEN COLLECTED 05/26/24 01:07 Blood Culture - Preliminary Blood SPECIMEN COLLECTED A&P Assessment and plan (1) Acute hypoxic respiratory failure: Acute hypoxic respiratory failure, saturations 60-70% on transport by EMS, with respiratory distress, with major comorbid conditions with altered mental status acute metabolic encephalopathy, poorly responsive, lethargic, also hypotensive. Possible septic shock. Lactic acid 4.5. Reviewed vitals, CBC, ABG, CMP, lactic acid, NT proBNP, COVID-19, flu, RSV PCR, EKG, on my interpretation with RBBB, without sign of acute GA, pending official read; reviewed ED provider note, discussed with ED provider. Received fluid resuscitation. Intubated in ER, blood culture collected, started on antibiotic, started on pressor. Possible pneumonia. She is ESRD, but this still makes some urine, will request UA as well. Treat possible pneumonia with antibiotics, continue Zosyn, vancomycin, with recent hospitalization. Collect urine culture. Follow-up blood cultures. Check MRSA PCR. Additionally with underlying grade 2 diastolic dysfunction, pulmonary hypertension, cardiomegaly, congestive changes, with recent visit with CHF, suspect also component of acute diastolic decompensated CHF. Requesting nephrology consultation for hemodialysis. Continue mechanical ventilatory support. Monitor oxygenation. Continue hemodynamic support. Wean down as tolerating. With leukocytopenia, but also with tachycardia, respiratory failure, additional assessment by CTA to assess for any PE. D-dimer noted elevated although in the setting of ESRD difficult to interpret. Will go ahead and assess with lower extremity duplex ultrasound as well. Only SCD for DVT prophylaxis, no anticoagulant at current time due to risk of bleeding with thrombocytopenia. Follow-up blood counts. PPI prophylaxis. Complete troponin EKG series, so far with moderate elevation suspected demand ischemia. Underlying suspected severe pulmonary hypertension. Also underlying MASSIMO not on CPAP could be additional trigger of pulmonary edema. Additionally bilateral pleural effusions, possibly secondary to CHF but also has underlying cirrhosis, question of possible hepatic hydrothorax. Very low albumin 2. Will give albumin infusion. Started Lasix drip. Monitor intake and output. Follow-up chemistry. (2) Acute respiratory distress: As above. (3) Pancytopenia: Unclear cause of pancytopenia, DIC profile has been requested. Could be secondary to sepsis with pneumonia, treat Pneumonia/infection as above. Will additionally request peripheral smear assess for schistocytes/TTP. Assess for any other myelodysplastic changes, question of possible bone marrow dysfunction. Is on methotrexate for seronegative arthritis which likely may be causing thrombocytopenia, pancytopenia. Hold medication will likely need to discontinue. Requested repeat blood counts. At risk of bleeding, only SCD for DVT prophylaxis at current time. Assess for any thrombosis as above. She is supposed to be following up with hematology. (4) Acute encephalopathy: Acute metabolic encephalopathy with respiratory failure, hypoxia, possible sepsis, pneumonia, CHF exacerbation, additionally with thrombocytopenia. Treat underlying conditions as above. Obtain plain CT head. Plan Goals of care discussion: Per discussion of CODE STATUS with her , several hospitalizations ago she had not wanted chest compressions, was only okay with mechanical ventilation, however, has had 2 admissions since then of where she had been full code. As per discussion with the , full code at current time, this may change depending on condition and further developments. Hypomagnesemia: Replace magnesium. Recheck level. ESRD on hemodialysis, Consulting nephrology for hemodialysis. Replace hypomagnesemia. Check Phos. DM 2, Glucose checks, insulin sliding scale CAD, Complete troponin EKG series. Reviewed recent echocardiogram, grade 3 diastolic dysfunction, pulmonary hypertension. Diastolic congestive heart failure, Echocardiogram reviewed from earlier with noted grade 2 diastolic dysfunction. Pulmonary hypertension. Mild MVR. Mild TVR. Pulmonary hypertension, Severe pulmonary rotation per recent TTE. A-fib, Continue amiodarone. Low-dose Aspirin. Hold metoprolol due to hypotension. COPD, Difficult to tell if having component of additional exacerbation. Antibiotics as above. Breathing treatments. Sleep apnea not on CPAP, Liver cirrhosis, With hypoalbuminemia. Will give albumin. Myasthenia gravis, Seronegative rheumatoid arthritis, Hold methotrexate. History of C. difficile, No diarrhea Hypothyroidism, Check TSH. Levothyroxine. Depression, Hold sertraline with thrombocytopenia, risk of bleeding. Other medical problems Attestations 2 Medical Necessity Statement*: Admission of over 2 midnights anticipated for assessment and management of acute hypoxic respiratory failure, possible pneumonia, CHF exacerbation lady with ESRD on hemodialysis, with pleural effusions concomitant liver cirrhosis, hypoalbuminemia, with pancytopenia, and additional multiple comorbidities as above. Coding Level of Care Code Critical Care >/= 30 minutes Critical care time (in minutes): 50 The high probability of a clinically significant, sudden or life threatening deterioration, as referenced in this documentation, required my full and direct attention, intervention and personal management. The critical care time shown is in addition to time spent performing any reported separately billable procedures and includes the following: [x] Data and vital sign review and interpretation [x ] Patient assessment, examination and intervention [x] Medication orders and management [x] Patient/Family updates as able [x] Care Coordination and Documentation. Diagnoses Acute hypoxic respiratory failure J96.01 Acute respiratory distress R06.03 Pancytopenia D61.818 Acute encephalopathy G93.40
--- NOTE | 2024-05-26 04:32 | CTR_ITS ---
PROCEDURE INFORMATION: Exam: CT Head Without Contrast Exam date and time: 05/26/2024 4:44 AM Age: 73 years old Clinical indication: Altered mental status/memory loss and other: Intubated; Additional info: AMS TECHNIQUE: Imaging protocol: Computed tomography of the head without contrast. Radiation optimization: All CT scans at this facility use at least one of these dose optimization techniques: automated exposure control; mA and/or kV adjustment per patient size (includes targeted exams where dose is matched to clinical indication); or iterative reconstruction. COMPARISON: CT head wo con* [id number] 06/19/2023 5:46 AM RADIATION DOSE METRICS: Total DLP (mGy-cm): 300 FINDINGS: Tubes, catheters and devices: Partially imaged endotracheal and enteric tubes. Brain: Moderate cerebral and cerebellar atrophy. No acute intracranial hemorrhage. Moderate nonspecific periventricular white matter disease, not significantly changed compared to 06/19/2023. Stable differentiation of velez-white matter. No midline shift. Cerebral ventricles: Mild ventriculomegaly is unchanged compared to 06/19/2023 and is favored to be compensatory secondary to atrophy. Paranasal sinuses: Mucosal thickening and small amounts of fluid layering in the bilateral maxillary and sphenoid sinuses. Mastoid air cells: Large left mastoid effusion. Bones: No acute osseous findings. Soft tissues: Visualized superficial soft tissues are within normal limits. Other findings: Intracranial atherosclerosis. CT/CT head wo con* [id number] IMPRESSION: 1. Large left mastoid effusion. Correlate for potential mastoiditis. 2. Paranasal sinus disease. 3. No acute intracranial findings. 4. Chronic involutional changes are not significantly changed compared to 06/19/2023.
[2024-05-26 04:33] LABS: Partial Thromboplastin Time 29.6 SECONDS (23.9-36.7)
[2024-05-26 04:34] LABS: Fibrinogen 567 mg/dL (174-498)
[2024-05-26 04:35] LABS: INR 1.22 (0.8-1.2)
[2024-05-26 04:38] LABS: Lactic Acid level (Lactate) 1.7 mmol/L (0.5-2.2)
[2024-05-26 04:43] LABS: D Dimer 15.64 ug/mLFEU (0-0.59)
--- NOTE | 2024-05-26 04:43 | USR_ITS ---
PROCEDURE INFORMATION: Exam: US Duplex Lower Extremity Veins, Bilateral Exam date and time: 05/26/2024 5:44 AM Age: 73 years old Clinical indication: Other: Stasis; Additional info: Assess for dvt TECHNIQUE: Imaging protocol: Real-time duplex ultrasound of the bilateral extremities with 2-D velez scale, color Doppler flow and spectral waveform analysis including responses to compression and other maneuvers (when performed) with image documentation. Complete exam focused on the lower extremity veins. COMPARISON: US renal BI* [id number] 01/05/2020 10:49 AM FINDINGS: Right deep veins: Unremarkable. The common femoral, femoral, proximal profunda femoral and popliteal veins are patent without thrombus. Normal Doppler waveforms. Normal compressibility and/or augmentation response. Left deep veins: Unremarkable. The common femoral, femoral, proximal profunda femoral and popliteal veins are patent without thrombus. Normal Doppler waveforms. Normal compressibility and/or augmentation response. Superficial veins: Greater saphenous veins at the saphenofemoral junctions are patent bilaterally without thrombus. Soft tissues: There is a hypoattenuation cystic lesion seen in the posteromedial aspect the left popliteal fossa measuring 1.1 x 1.5 x 1.0 cm compatible small Estes's cyst. US/[place] [id number] IMPRESSION: No evidence of deep vein thrombosis.
--- NOTE | 2024-05-26 05:18 | ED_ITS ---
HPI - SOB/Dyspnea 2 General: Chief Complaint: Shortness of Breath/Dyspnea Stated Complaint: UNRESPONSIVE Time Seen by Provider: 05/26/24 00:56 History of Present Illness: HPI Narrative: 73-year-old female well-known to the ER service. She presents after being found unresponsive in the senior living. She was profoundly hypoxic evidently, with saturations in the 60s by pulse ox there. EMS placed her on 100% via nonrebreather, and saturations are in the upper 90s now. She is still not responding, save to withdrawal from noxious stimuli. Related Data Home Medications Medication Instructions Recorded Confirmed cholecalciferol (vitamin D3) 25 1,000 unit PO DAILY 10/12/19 05/23/24 mcg (1,000 unit) tablet (Vitamin D3) calcium carbonate (Calcium 600) 600 mg PO DAILY 06/27/21 05/23/24 levothyroxine 150 mcg tablet 150 mcg PO DAILY@06 06/27/21 05/23/24 (Euthyrox) pantoprazole 40 mg tablet,delayed 40 mg PO BID 09/13/21 05/23/24 release glucose 4 gram chewable tablet 4 g PO PRN PRN Hypoglycemia 06/17/23 05/23/24 bisacodyl 10 mg rectal suppository 10 mg IA DAILY PRN if no bm x3 days 09/30/23 05/23/24 (Dulcolax (bisacodyl)) meclizine 25 mg tablet 25 mg PO TID PRN Nausea And 09/30/23 05/23/24 Vomiting nystatin 100,000 unit/gram topical See Rx Instructions .Route 09/30/23 05/23/24 powder ([facility]) .COMPLEX PRN Rash magnesium L-lactate 84 mg 84 mg PO DAILY@08 10/12/23 05/23/24 tablet,extended release methotrexate sodium 2.5 mg tablet 6 mg PO Q7D 10/12/23 05/23/24 folic acid 1 mg tablet 1 mg PO DAILY 01/09/24 05/23/24 melatonin 1 mg tablet 1 mg PO BEDTIME 01/09/24 05/23/24 lidocaine 5 % topical patch 1 patch topical BID 03/17/24 05/23/24 sertraline 100 mg tablet 100 mg PO BEDTIME 03/17/24 05/23/24 ondansetron 4 mg disintegrating 4 mg PO Q6H PRN Nausea And Vomiting 03/28/24 05/23/24 tablet albuterol sulfate 0.63 mg/3 mL 0.63 mg inhalation TID PRN 04/22/24 05/23/24 solution for nebulization Shortness Of Breath Or Wheezing lactulose 10 gram/15 mL (15 mL) 15 ml PO DAILY 04/22/24 05/23/24 oral solution polyethylene glycol 3350 17 gram 17 g PO DAILY 04/22/24 05/23/24 oral powder packet (Miralax) pyridoxine (vitamin B6) 500 mg 500 mg PO DAILY 04/22/24 05/23/24 tablet carica papaya 4 tab PO TIDWM 05/01/24 05/23/24 menthol 0.44 %-zinc oxide 20.6 % 1 applic topical BID PRN Bed sore 05/01/24 05/23/24 topical ointment (Calmoseptine) midodrine 10 mg tablet 10 mg PO TID 05/01/24 05/23/24 lorazepam 1 mg tablet (Ativan) 1 mg PO BID PRN Anxiety 05/15/24 05/23/24 acetaminophen 325 mg tablet 650 mg PO Q6H PRN pain/increased 05/19/24 05/23/24 temp Previous Rx's Medication Instructions Recorded nitroglycerin 0.4 mg sublingual 0.4 mg sublingual Q5M PRN Chest 02/08/21 tablet (Nitrostat) Pain #30 tabs fluticasone fur. 200 mcg-umeclid 1 inh inhalation DAILY #28 ea 06/20/23 62.5 mcg-vilant 25 mcg inhalat.powder (Trelegy Ellipta) insulin lispro 100 unit/mL See Rx Instructions .Route 08/17/23 subcutaneous solution (Humalog .COMPLEX #10 mL U-100 Insulin) aspirin 81 mg tablet,delayed 81 mg PO DAILY #30 tabs 10/19/23 release bumetanide 2 mg tablet 2 mg PO DAILY #90 tabs 04/25/24 guaifenesin 400 mg tablet 400 mg PO TID PRN congestion #30 04/25/24 tabs potassium chloride 10 mEq 10 meq PO DAILY #30 tabs 04/25/24 tablet,extended release (Klor-Con) metoprolol tartrate 25 mg tablet 12.5 mg (1/2 x 25 mg) PO BID #60 05/05/24 tabs levofloxacin 500 mg tablet 500 mg PO DAILY 7 days #7 tabs 05/21/24 amiodarone 200 mg tablet 200 mg PO DAILY #60 tabs 05/23/24 Allergies Allergy/AdvReac Type Severity Reaction Status Date / Time adhesive tape Allergy rash Verified 05/23/24 10:50 cinnamon Allergy sinus Verified 05/23/24 10:50 codeine Allergy unknown Verified 05/23/24 10:50 cedar Allergy sinus Uncoded 05/23/24 10:50 pine Allergy sinus Uncoded 05/23/24 10:50 pork food Allergy ADR-Nausea Uncoded 05/23/24 10:50 PFSH ED 2 PFSH: Medical History Breath shortness Atrial fibrillation NSTEMI (non-ST elevated myocardial infarction) History of cardiovascular stress test 09/2023 History of stroke Diabetes mellitus, type II Myasthenia gravis listed in [facility] records Amber albicans infection 2022 Clostridioides difficile diarrhea 12/18 Inflammatory arthritis Sleep apnea in adult noncompliant with CPAP/BiPAP in outpt setting (machine feels different) Colon polyp Gastric polyposis UGIB (upper gastrointestinal bleed) 2020 Chronic atrial fibrillation not on chronic anticoagulation due to recurrent falls and prior GI bleed Congestive heart failure (CHF) Orthostatic hypotension Chronic post-traumatic stress disorder (PTSD) Major depressive disorder, recurrent episode, moderate with anxious distress Duodenal ulcer due to bacteria 08/16 Coronary artery disease Chronic knee pain Chronic low back pain COVID-14 August 2020 Seronegative rheumatoid arthritis of both hands Osteoarthritis of knees, bilateral Fibromyalgia Lung nodule Unstable angina Urgency incontinence Left renal mass COPD (chronic obstructive pulmonary disease) Oxygen dependent, 3-3.5 L at baseline Hypothyroidism Liver cirrhosis Hyperlipidemia Hypertension Recurrent UTI Surgical History S/P dialysis catheter insertion 07/2023 History of colonoscopy 06/23/22 History of esophagogastroduodenoscopy (EGD) 06/23/22 History of cholecystectomy History of thyroid surgery History of cardiac cath History of hysterectomy History of knee replacement Family History Other CAD (coronary artery disease) Cancer Denies family history of Anesthesia complication Bleeding disorder Social History Smoking and tobacco/nicotine status: former use of tobacco/nicotine Quit status (tobacco/nicotine): has quit using Year quit tobacco: 2005 Second hand smoke exposure: No Alcohol intake: never Substance/Drug Use: never Adopted: No Caregiver/support person: No Lives independently: No Household members: spouse Housing: Retirement Marital status: Current occupational status: retired Current gender identity: Female Physical Exam 2 Const: EXAM LIMITATIONS: altered mental status GENERAL APPEARANCE: ill appearing and frail appearing ORIENTATION/CONSCIOUSNESS: Yes patient obtunded HENMT: COMMON NORMALS: normocephalic, atraumatic and Normal external nose present HEAD & SCALP: normocephalic and atraumatic FACE & SINUS: no abrasion and no ecchymosis NOSE: Normal external nose present MOUTH: mouth trauma (Tongue abrasion from bite) Eye: COMMON NORMALS: Equal, round and reactive pupils present PUPIL: Yes Equal, round and reactive pupils present Neck/C-Spine: GENERAL: Yes trachea midline Resp: EFFORT & INSPECTION: Yes labored and Yes grunting AUSCULTATION: r honchi Cardio: RATE: tachycardic GI: COMMON NORMALS: Soft to palpation PALPATION: Yes Soft to palpation Procedures Central Line Placement Left Femoral: Time Out Performed: No Patient Placed on Monitor/Pulse Ox: Yes MD Prep: mask, gown and gloves Central Line Prep: Chlorhexidine scrub Local Anesthetic: lidocaine 1% Amount of anesthesia used (mL): 3 Ultrasound Used for Placement: Yes Central Line Lumen Inserted: triple Post Procedure: sutured in place, good blood return, all ports aspirated, flushed, capped and sterile dressing applied Patient Tolerated Procedure: well and no complications Complications: none Intubation Time out performed: No sedative: Etomidate Mg Given: 2 paralytic: Succinylcholine Mg Given: 100 Laryngoscope: Kevin (4) ET Tube Size: 8 ET Tube Uncuffed: No Tube Secured Depth (cm): 4 Tube Secured Location: lips Tube Placement Confirmation: visualized tube passing through cords, equal breath sounds bilaterally, no breath sounds over epigastrium and confirmation by capnometry Patient Tolerated Procedure: well and no complications Intubation Complications: none Course 2 Vital Signs: Vital signs: Vital Signs Pulse Rate 102 H 05/26/24 06:15 Respiratory Rate 16 05/26/24 06:15 Blood Pressure 101/58 05/26/24 06:15 Pulse Oximetry 92 05/26/24 06:15 Oxygen Delivery Me thod Mechanical Ventil ation 05/26/24 02:56 Oxygen Flow Rate 10 05/26/24 00:55 Fraction of Inspir ed Oxygen 24 05/26/24 03:58 MDM - SOB/Dyspnea Medical Decision Making The patient came in as a full code patient. I had a discussion with her quickly to ensure that he wanted everything done. He said that he certainly did. Therefore, we intubated the patient on arrival without complication. Blood pressures had remained somewhat low, so fluid bolus was ordered. Pressors were ordered, but did not have to be started early on. The patient is pancytopenic. Creatinine is at baseline at 2.5. She had dialysis on Sunday. Chest x-ray shows persistent right greater than left pleural effusions, slightly worsened airspace disease bilaterally. Delta troponin is -4. BNP is 29,000. After intubation, blood gas showed pH of 7.41 with pCO2 of 35.5. Lactic acid was elevated at 4.5. Again, she received a sepsis bolus, blood cultures, antibiotics, and pressors are in the room but not started. Spoke with hospitalist. He is concerned of her profound hypoxia, that she may have a pulmonary embolism, he is also concerned about a widened mediastinum on chest x- ray. Because of these things, CTA of the chest was ordered and is pending. She will require transfusion, likely both of blood and platelets. Continued antibiotic coverage. Blood pressure support. she will go to the icu. Lab Data 05/26/24 01:07 05/26/24 02:17 Labs/Radiology: Radiology Impressions Chest X-Ray 05/26/24 00:57 IMPRESSION: 1. Persistent wsrrv-yaphlus-onem-left pleural effusions. 2. Stable to slightly worsened diffuse hazy airspace opacities throughout the bilateral lungs. This may represent pulmonary edema. 3. Cardiomediastinal silhouette is midline and enlarged, stable. Chest CTA 05/26/24 03:29 IMPRESSION: 1. There is no evidence for pulmonary emboli. 2. Worsening bilateral infiltrates superimposed over bilateral pleural effusions findings compatible with pneumonia. 3. Stable cardiomegaly Head CT 05/26/24 04:32 IMPRESSION: 1. Large left mastoid effusion. Correlate for potential mastoiditis. 2. Paranasal sinus disease. 3. No acute intracranial findings. 4. Chronic involutional changes are not significantly changed compared to 06/19/2023. Venous Duplex 05/26/24 04:43 IMPRESSION: No evidence of deep vein thrombosis. Laboratory Results WBC 2.84 10^3/uL (3.29-11.43) L 05/26/24 01:07 RBC 2.35 10^6/uL (3.85-5.65) L 05/26/24 01:07 Hgb 7.30 g/dL (11.27-16.99) L 05/26/24 01:07 Hct 24.5 % (36-47) L 05/26/24 01:07 MCV 104.3 fl (85-98) H 05/26/24 01:07 MCH 31.1 pg (27-33) 05/26/24 01:07 MCHC 29.8 g/dL (30-55) L 05/26/24 01:07 RDW 17.7 % (12.1-15.1) H 05/26/24 01:07 Plt Count 38 10^3/cmm (157-399) L 05/26/24 01:07 MPV 11.2 fL (7.4-10.4) H 05/26/24 01:07 Neut % (Auto) 73.8 % 05/26/24 01:07 Lymph % (Auto) 19.4 % 05/26/24 01:07 Pickett % (Auto) 2.5 % 05/26/24 01:07 Eos % (Auto) 2.1 % 05/26/24 01:07 Baso % (Auto) 0.4 % 05/26/24 01:07 Neut # (Auto) 2.10 10^3/uL (1.8-7.7) 05/26/24 01:07 Lymph # (Auto) 0.6 10^3/uL (0.8-4.8) L 05/26/24 01:07 Pickett # (Auto) 0.1 10^3/uL (0.2-0.9) L 05/26/24 01:07 Eos # (Auto) 0.1 10^3/uL (0.0-0.8) 05/26/24 01:07 Baso # (Auto) 0.0 10^3/uL (0.0-0.1) 05/26/24 01:07 Nucleated RBC % (auto) 1.1 % 05/26/24 01:07 Nucleated RBCs # 0.0 /100WBC 05/26/24 01:07 PT 15.90 SECONDS (12.1-14.9) H 05/26/24 04:13 INR 1.22 (0.8-1.2) H 05/26/24 04:13 APTT 29.6 SECONDS (23.9-36.7) 05/26/24 04:13 Fibrinogen 567 mg/dL (174-498) H 05/26/24 04:13 D-Dimer 15.64 ug/mLFEU (0-0.59) H 05/26/24 04:13 Specimen Type Arterial 05/26/24 02:29 Sample Site Brachial, right 05/26/24 02:29 ABG pH 7.41 (7.35-7.45) 05/26/24 02:29 ABG pCO2 35.5 mmHg (35-45) 05/26/24 02:29 ABG pO2 118.0 mmHg (80.0-100.0) H 05/26/24 02:29 ABG PO2/FiO2 Ratio 295 05/26/24 02:29 ABG HCO3 22.5 mmol/L (22-26) 05/26/24 02:29 ABG Base Excess -2.0 mmol/L (-2.0-2.0) 05/26/24 02:29 Memo Test Pos 05/26/24 02:29 Hematocrit 17.4 % (37-47) L 05/26/24 02:29 Hgb O2 Saturation 96.6 % (95-100) 05/26/24 02:29 Carboxyhemoglobin 1.5 %THgb (0.4-20.1) 05/26/24 02:29 Methemoglobin 1.3 % (0.4-1.5) 05/26/24 02:29 Total Hemoglobin 5.7 g/dL (12-16) L 05/26/24 02:29 O2 Delivery Device Vent 05/26/24 02:29 FiO2 40.0 % 05/26/24 02:29 PEEP 5.0 cmH20 05/26/24 02:29 Cutlery Grinder ID Cl 05/26/24 02:29 Sodium 137 mmol/L (136-145) 05/26/24 02:17 Potassium 4.0 mmol/L (3.5-5.1) 05/26/24 02:17 Chloride 106 mmol/L (98-107) 05/26/24 02:17 Carbon Dioxide 23 mmol/L (22-29) 05/26/24 02:17 Anion Gap 12.0 (5-19) 05/26/24 02:17 BUN 37 mg/dL (8-23) H 05/26/24 02:17 Creatinine 2.5 mg/dL (0.5-0.9) H 05/26/24 02:17 GFR Calculation Not Reportable 05/26/24 02:17 Glucose 172 mg/dL (65-115) H 05/26/24 02:17 Calculated Osmolality 297 mOsm/kg (285-295) H 05/26/24 02:17 Lactic Acid 4.5 mmol/L (0.5-2.2) H* 05/26/24 01:07 Lactic Acid (Sepsis) 1.7 mmol/L (0.5-2.2) 05/26/24 04:13 Calcium 7.0 mg/dL (8.5-10.5) L 05/26/24 02:17 Magnesium 1.4 mg/dL (1.7-2.3) L 05/26/24 02:17 Total Bilirubin 0.4 mg/dL (0.15-1.2) 05/26/24 02:17 AST 69 U/L (0-32) H 05/26/24 02:17 ALT 34 U/L (0-33) H 05/26/24 02:17 Alkaline Phosphatase 206 U/L (35-105) H 05/26/24 02:17 Troponin T Baseline 66 ng/L (0-10) H 05/26/24 01:07 Troponin T 120 Minute 61.93 ng/L (0-10) H 05/26/24 03:20 Delta Troponin T -4.07 ABS# (0-10) L 05/26/24 03:20 NT-Pro-B Natriuret Pep 68203 pg/mL (0-450) H 05/26/24 02:17 Total Protein 3.9 g/dL (6.6-8.7) L 05/26/24 02:17 Albumin 2.0 g/dL (3.5-5.2) L 05/26/24 02:17 Globulin 1.9 g/dL (1.3-4.6) 05/26/24 02:17 TSH 3.75 uIU/mL (0.27-4.20) 05/26/24 02:17 Coronavirus (PCR) Negative (Negative) 05/26/24 02:18 Influenza A (PCR) Negative (Negative) 05/26/24 02:18 Influenza Type B (PCR) Negative (Negative) 05/26/24 02:18 RSV (PCR) Negative (Negative) 05/26/24 02:18 All radiology interpretation(s) finalized by discharge Critical Care Time 2 Critical Care Time: Critical Care Time: Yes Total Critical Care Time: 40 Attestation: This case had a high probability of a clinically significant, sudden, or life threatening deterioration of this patient's condition which required my full and direct attention, intervention and personal management. Time is independent of any procedures performed. Discharge Plan Discharge Patient Disposition: Admitted As Inpatient Clinical Impression: PNA (pneumonia), Acute hypoxic respiratory failure Condition: Critical Coding Level of Care Code ED Materials Buyer for Dougie Samson
[2024-05-26] MEDS: iohexol 350 mg/mL 500 mL Btl (per mL) IV (05:24)
[2024-05-26 06:04] LABS: Thyroid Stimulating Hormone 3.75 uIU/mL (0.27-4.20)
[2024-05-26] MEDS: magnesium sulfate premix 2 GM/50 ML PIGGYBACK IV (06:07)
[2024-05-26 07:30] LABS: Eosinophils % 1.2 %; Lymphocytes # 0.2 10^3/uL (0.8-4.8); Lymphocytes % 14.2 %; Mean Corpuscular HGB Conc 30.1 g/dL (30-55); Mean Corpuscular Hemoglobin 31.3 pg (27-33); Mean Corpuscular Volume 103.9 fl (85-98); Mean Platelet Volume 10.6 fL (7.4-10.4); Monocytes % 2.4 %; Neutrophils # 1.38 10^3/uL (1.8-7.7); Neutrophils % 81.6 %; Nucleated Red Blood Cells % 0 %; Platelet Count 30 10^3/cmm (157-399); Positive M 1; Red Blood Count 1.79 10^6/uL (3.85-5.65); Red Cell Distribution Width 17.8 % (12.1-15.1); White Blood Count 1.69 10^3/uL (3.29-11.43)
--- NOTE | 2024-05-26 07:42 | P.CONIM_ITS ---
Providers/Reason For Consult 2 Consulting Physician/Specialty*: josé luis fatima md/ telenephrology Reason for Consult*: ESRD Requesting Physician: DR Bear Attending Physician: Milton Blandon Primary Care Provider: Donavan Champagne DO History of Present Illness History of Present Illness Myesha Parker is a 73 year old female history of end-stage renal disease on dialysis, type 2 diabetes, CAD, heart failure preserved EF, pulmonary hypertension, A-fib, COPD, sleep apnea, cirrhosis, myasthenia gravis, seronegative rheumatoid arthritis, hypothyroidism, C. difficile, depression. Multiple hospitalizations recently had recent hospitalization for heart failure with possible pneumonia. Patient was discharged on May 21, 2024, presents again with altered mental status hypoxemia and pneumonia patient was intubated and diagnosed with pneumonia given vancomycin and Zosyn and given fluids. Renal was called as patient has not awoken and is due for dialysis. Review of Systems 2 Narrative: Unable to ascertain as patient is intubated and sedated on pressors Medications/Allergies Home Medications Medication Instructions Recorded Confirmed Last Taken Type cholecalciferol (vitamin D3) 25 1,000 unit PO DAILY 10/12/19 05/23/24 05/22/24 History mcg (1,000 unit) tablet (Vitamin D3) nitroglycerin 0.4 mg sublingual 0.4 mg sublingual Q5M PRN Chest 02/08/21 05/23/24 Unknown Rx tablet (Nitrostat) Pain #30 tabs calcium carbonate (Calcium 600) 600 mg PO DAILY 06/27/21 05/23/24 05/22/24 History levothyroxine 150 mcg tablet 150 mcg PO DAILY@06 06/27/21 05/23/24 05/22/24 History (Euthyrox) pantoprazole 40 mg tablet,delayed 40 mg PO BID 09/13/21 05/23/24 05/22/24 History release glucose 4 gram chewable tablet 4 g PO PRN PRN Hypoglycemia 06/17/23 05/23/24 Unknown History fluticasone fur. 200 mcg-umeclid 1 inh inhalation DAILY #28 ea 06/20/23 05/23/24 05/22/24 Rx 62.5 mcg-vilant 25 mcg inhalat.powder (Trelegy Ellipta) insulin lispro 100 unit/mL See Rx Instructions .Route 08/17/23 05/23/24 05/22/24 Rx subcutaneous solution (Humalog .COMPLEX #10 mL U-100 Insulin) bisacodyl 10 mg rectal suppository 10 mg W[place] DAILY PRN if no bm x3 days 09/30/23 05/23/24 11/22/23 History (Dulcolax (bisacodyl)) meclizine 25 mg tablet 25 mg PO TID PRN Nausea And 09/30/23 05/23/24 04/30/24 12:20 History Vomiting nystatin 100,000 unit/gram topical See Rx Instructions .Route 09/30/23 05/23/24 Unknown History powder ([facility]) .COMPLEX PRN Rash magnesium L-lactate 84 mg 84 mg PO DAILY@08 10/12/23 05/23/24 05/22/24 History tablet,extended release methotrexate sodium 2.5 mg tablet 6 mg PO Q7D 10/12/23 05/23/24 05/17/24 History aspirin 81 mg tablet,delayed 81 mg PO DAILY #30 tabs 10/19/23 05/23/24 05/22/24 Rx release folic acid 1 mg tablet 1 mg PO DAILY 01/09/24 05/23/24 05/22/24 History melatonin 1 mg tablet 1 mg PO BEDTIME 01/09/24 05/23/24 05/18/24 History lidocaine 5 % topical patch 1 patch topical BID 03/17/24 05/23/24 05/22/24 History sertraline 100 mg tablet 100 mg PO BEDTIME 03/17/24 05/23/24 05/18/24 History ondansetron 4 mg disintegrating 4 mg PO Q6H PRN Nausea And Vomiting 03/28/24 05/23/24 05/22/24 History tablet albuterol sulfate 0.63 mg/3 mL 0.63 mg inhalation TID PRN 04/22/24 05/23/24 05/14/24 09:05 History solution for nebulization Shortness Of Breath Or Wheezing lactulose 10 gram/15 mL (15 mL) 15 ml PO DAILY 04/22/24 05/23/24 05/18/24 History oral solution polyethylene glycol 3350 17 gram 17 g PO DAILY 04/22/24 05/23/24 05/22/24 History oral powder packet (Miralax) pyridoxine (vitamin B6) 500 mg 500 mg PO DAILY 04/22/24 05/23/24 05/22/24 History tablet bumetanide 2 mg tablet 2 mg PO DAILY #90 tabs 04/25/24 05/23/24 05/22/24 Rx guaifenesin 400 mg tablet 400 mg PO TID PRN congestion #30 04/25/24 05/23/24 Unknown Rx tabs potassium chloride 10 mEq 10 meq PO DAILY #30 tabs 04/25/24 05/23/24 05/22/24 Rx tablet,extended release (Klor-Con) carica papaya 4 tab PO TIDWM 05/01/24 05/23/24 05/22/24 History menthol 0.44 %-zinc oxide 20.6 % 1 applic topical BID PRN Bed sore 05/01/24 05/23/24 05/22/24 History topical ointment (Calmoseptine) midodrine 10 mg tablet 10 mg PO TID 05/01/24 05/23/24 05/22/24 History metoprolol tartrate 25 mg tablet 12.5 mg (1/2 x 25 mg) PO BID #60 05/05/24 05/23/24 05/22/24 Rx tabs lorazepam 1 mg tablet (Ativan) 1 mg PO BID PRN Anxiety 05/15/24 05/23/24 05/18/24 History acetaminophen 325 mg tablet 650 mg PO Q6H PRN pain/increased 05/19/24 05/23/24 05/21/24 History temp levofloxacin 500 mg tablet 500 mg PO DAILY 7 days #7 tabs 05/21/24 05/23/24 05/22/24 Rx amiodarone 200 mg tablet 200 mg PO DAILY #60 tabs 05/23/24 05/23/24 Unknown Rx Allergies Allergy/AdvReac Type Severity Reaction Status Date / Time adhesive tape Allergy rash Verified 05/23/24 10:50 cinnamon Allergy sinus Verified 05/23/24 10:50 codeine Allergy unknown Verified 05/23/24 10:50 cedar Allergy sinus Uncoded 05/23/24 10:50 pine Allergy sinus Uncoded 05/23/24 10:50 pork food Allergy ADR-Nausea Uncoded 05/23/24 10:50 Current Medications Generic Name Dose Route Start Last Admin Trade Name Freq PRN Reason Stop Dose Admin Propofol 1,000 mg in 100 mls @ 0 mls/hr 05/26/24 01:00 05/26/24 02:40 Diprivan IV 25 mcg/kg/min .Q0M JOCE 13.74 mls/hr Titration Protocol Per Protocol Fentanyl 1,000 mcg in 100 mls @ 0 mls/hr 05/26/24 01:00 05/26/24 02:15 Sublimaze IV 100 mcg/hr .Q0M JOCE 10 mls/hr Titration Protocol Per Protocol Norepinephrine Bitartrate 4 mg in 250 mls @ 0 mls/hr 05/26/24 02:15 05/26/24 06:13 Levophed IV 4 mcg/min .Q0M JOCE 15 mls/hr Titration Protocol Per Protocol PFSH Acute 2 PFSH: Medical History Breath shortness Atrial fibrillation NSTEMI (non-ST elevated myocardial infarction) History of cardiovascular stress test 09/2023 History of stroke Diabetes mellitus, type II Myasthenia gravis listed in [facility] records Amber albicans infection 2022 Clostridioides difficile diarrhea 12/18 Inflammatory arthritis Sleep apnea in adult noncompliant with CPAP/BiPAP in outpt setting (machine feels different) Colon polyp Gastric polyposis UGIB (upper gastrointestinal bleed) 2020 Chronic atrial fibrillation not on chronic anticoagulation due to recurrent falls and prior GI bleed Congestive heart failure (CHF) Orthostatic hypotension Chronic post-traumatic stress disorder (PTSD) Major depressive disorder, recurrent episode, moderate with anxious distress Duodenal ulcer due to bacteria 08/16 Coronary artery disease Chronic knee pain Chronic low back pain COVID-14 August 2020 Seronegative rheumatoid arthritis of both hands Osteoarthritis of knees, bilateral Fibromyalgia Lung nodule Unstable angina Urgency incontinence Left renal mass COPD (chronic obstructive pulmonary disease) Oxygen dependent, 3-3.5 L at baseline Hypothyroidism Liver cirrhosis Hyperlipidemia Hypertension Recurrent UTI Surgical History S/P dialysis catheter insertion 07/2023 History of colonoscopy 06/23/22 History of esophagogastroduodenoscopy (EGD) 06/23/22 History of cholecystectomy History of thyroid surgery History of cardiac cath History of hysterectomy History of knee replacement Family History Other CAD (coronary artery disease) Cancer Denies family history of Anesthesia complication Bleeding disorder Social History Smoking and tobacco/nicotine status: former use of tobacco/nicotine Quit status (tobacco/nicotine): has quit using Year quit tobacco: 2005 Second hand smoke exposure: No Alcohol intake: never Substance/Drug Use: never Adopted: No Caregiver/support person: No Lives independently: No Household members: spouse Housing: [facility] Marital status: Current occupational status: retired Current gender identity: Female Vitals/I&O/Wt Last Vital Signs Pulse 102 H 05/26/24 06:15 Resp 16 05/26/24 06:15 BP 101/58 05/26/24 06:15 Pulse Ox 92 05/26/24 06:15 O2 Del Method Mechanical Ventilation 05/26/24 02:56 O2 Flow Rate 10 05/26/24 00:55 FiO2 24 05/26/24 03:58 05/25/24 05/26/24 05/26/24 22:59 06:59 14:59 Intake Total 2867.343 / 2867.343 Balance 2867.343 / 2867.343 Weight last 48 hrs Weight 91.626 kg Physical Exam 2 Narrative: Low-dose pressors. Obese lady in bed intubated on FiO2 24% HEENT normocephalic atraumatic. Neck is supple Lungs patchy dullness and crackles. Heart irregular positive S1-S2. Abdomen is soft positive bowel sounds. Remedies no edema Neuro sedated responds to pain. Anterior chest wall permacath. Urinary Catheter Management: Manz[place]res: Cath Placed During This Visit: yes Reason for Continuing Indwelling Catheter: Accurate Measurement of Urinary Output in Critically Ill Patients Urinary Catheter Date of Insertion: 05/26/24 Urinary Catheter Time of Insertion: 01:10 Data 05/26/24 01:07 05/26/24 02:17 Micro: Microbiology 05/26/24 01:09 Blood Culture - Preliminary Blood SPECIMEN COLLECTED 05/26/24 01:07 Blood Culture - Preliminary Blood SPECIMEN COLLECTED A&P Assessment and plan (1) End stage renal disease on dialysis: 73-year-old lady ESRD here with pancytopenia pneumonia hypoxemia. CT scan showing pleural effusions. 1. Pancytopenia consider hematology evaluation 2. Pleural effusions has been on multiple images over the last couple months. Antibiotics as per primary care physician. 3. ESRD patient is on a Sunday dialysis schedule. However as patient is not interactive and hypoxemic will attempt dialysis today. 4. Renal dose antibiotics. 5. Chronic atrial fibrillation. 6. Once we start dialysis can stop Lasix drip. Patient was seen and examined using audiovisual equipment with the aid of a nurse. Plan As above. Consult Attestations 2 Medical Necessity Statement: Vent dependent respiratory failure on pressors. ESRD pneumonia pleural effusions Time Spent in Patient Care: Greater than 35 minutes (>than 50% of time spent in counselling and/or direct pt care on unit) . Coding Level of Care Code Acute Code for g Fwd Diagnoses End stage renal disease on dialysis N18.6; Z99.2
[2024-05-26 07:54] LABS: Troponin 5 6HR 59.63 ng/L (0-10); Troponin 5 6HR Delta -6.37 ng/L (0-12)
[2024-05-26 07:59] LABS: Glucose Point of Care 160 mg/dL (70-110)
[2024-05-26 08:04] LABS: Hematocrit 18.6 % (36-47); Slide Review Slide Review Perform
[2024-05-26 08:05] LABS: LAB Peripheral Smear Sent for Review
--- NOTE | 2024-05-26 08:14 | ECG_ITS ---
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 Measurements Intervals Ste[place]s Rate: 92 P: 0 CA: 0 QRS: -84 QRSD: 172 T: 84 QT: 461 QTc: 573 Interpretive Statements ATRIAL FIBRILLATION RIGHT BUNDLE BRANCH BLOCK [120+ ms QRS DURATION, UPRIGHT V1, 40+ ms S IN I/aVL/V4/V5/V6] LEFT ANTERIOR FASCICULAR BLOCK [QRS AXIS <= -45, QR IN I, RS IN II] Compared to ECG 05/26/2024 03:52:31 Left anterior fascicular block now present Sinus rhythm no longer present Sinus arrhythmia no longer present First degree AV block no longer present Atrial abnormality no longer present Right-axis deviation no longer present Myocardial infarct finding no longer present Electronically Signed On 05-26-2024 18:55:20 CDT by Victoriano White M.D. [id number]
[2024-05-26] MEDS: pantoprazole 40 mg SDV IVP ×2 (08:23→14:51)
[2024-05-26] MEDS: albumin 25 G/100 ML BAG 60 G IV (08:24)
[2024-05-26] MEDS: insulin lispro 100 unit/1 mL SUBCUT (08:24)
[2024-05-26] MEDS: amiodarone 200 mg Tablet PO (08:24)
[2024-05-26] MEDS: folic acid 1 mg Tablet PO (08:24)
[2024-05-26] MEDS: levothyroxine 150 mcg Tablet PO (08:24)
[2024-05-26] MEDS: aspirin 81 mg EC Tablet PO (08:24)
[2024-05-26] MEDS: propofol 1,000 MG/100 ML INJ 13.74 MG IV (08:46)
[2024-05-26 09:04] LABS: Cortisol Random 23.51 ug/dL (2.47-19.5); Thyroid Stimulating Hormone 3.83 uIU/mL (0.27-4.20)
[2024-05-26 10:01] LABS: Bilirubin Urine Negative (Negative); Blood Urine Negative (Negative); Glucose Urine UA Negative (Normal); Ketones Urine Negative (Negative); Leukocyte Esterase Urine Trace (Negative); Nitrate Urine Negative (Negative); Protein Urine Trace (Negative); Urine Appearance Clear (CLEAR); Urine Color Yellow (Yellow)
[2024-05-26 10:03] LABS: Add Urine Microscopic? YES; Bacteria Urine None Seen /hpf; Hyaline Casts Urine 20.67 /lpf; Squamous Epithelial Cell Urine 0-5 /hpf (0-5)
[2024-05-26] MEDS: fentaNYL 1,000 MCG/100 ML BAG 10 MCG IV (10:35)
[2024-05-26 10:39] LABS: Specific Gravity, Urine 1.038 (1.005-1.030)
[2024-05-26 10:40] LABS: UA Slide Review UA Slide Review Perf
[2024-05-26] MEDS: heparin, porcine 1,000 unit/mL INJ 10 mL 1000 UNIT IV (10:41)
[2024-05-26 10:42] LABS: Add Urine Culture? No
[2024-05-26 10:57] LABS: MRSA PCR OZH (swab) NOT DETECTED (Not Detecte)
[2024-05-26 11:08] LABS: Glucose Point of Care 124 mg/dL (70-110)
[2024-05-26 11:14] LABS: Basophils % 0.5 %; Eosinophils % 1.6 %; Lymphocytes # 0.4 10^3/uL (0.8-4.8); Lymphocytes % 19.1 %; Mean Corpuscular HGB Conc 29.6 g/dL (30-55); Mean Corpuscular Hemoglobin 31.3 pg (27-33); Mean Corpuscular Volume 105.7 fl (85-98); Mean Platelet Volume 10.7 fL (7.4-10.4); Monocytes % 1.1 %; Neutrophils # 1.45 10^3/uL (1.8-7.7); Neutrophils % 77.2 %; Nucleated Red Blood Cells % 0 %; Platelet Count 31 10^3/cmm (157-399); Red Blood Count 1.92 10^6/uL (3.85-5.65); White Blood Count 1.88 10^3/uL (3.29-11.43)
[2024-05-26 11:23] LABS: Hematocrit 20.3 % (36-47)
--- NOTE | 2024-05-26 11:38 | PC.NURSE ---
Blood transfusion given per Dialysis.
[2024-05-26 11:44] LABS: Anion Gap 13.6 (5-19); Blood Urea Nitrogen 23 mg/dL (8-23); Carbon Dioxide 25 mmol/L (22-29); Chloride 103 mmol/L (98-107); Glucose 117 mg/dL (65-115); Osmolality Calculated 291 mOsm/kg (285-295); Potassium 3.6 mmol/L (3.5-5.1); Sodium 138 mmol/L (136-145)
[2024-05-26 11:52] LABS: Creatinine Clr Calc Pharmacy 34.1092
--- NOTE | 2024-05-26 12:26 | US_ITS ---
WS: [id number] ULTRASOUND-GUIDED RIGHT THORACENTESIS CLINICAL INFORMATION: right pleural effusion COMPARISON: CTA 05/26/2024 PROCEDURE: Informed consent: The risks, benefits, and alternatives of the procedure were discussed with the mary yuniel's by Telephone. Verbal consent was obtained. Timeout: A timeout was performed to confirm the correct patient, procedure, and site. Site: RIGHT chest. Preparation: Ultrasound RIGHT chest performed with adequate amount of pleural fluid identified. Bradley barksdale was partially rolled onto her LEFT side for better access. A suitable skin site was identified and marked with ultrasound. The patient was prepped and draped in usual sterile fashion. Lidocaine 1% was used for local anesthesia. Catheter: 4 Lebanese One-Step catheter. Fluid Volume: 700 ml of dark bloody serosanguineous fluid which eventually partially cleared with drainage. Color: Dark bloody serosanguineous Complications: No pneumothorax on the post thoracentesis chest radiograph. Improved aeration of the R IGHT lung. After approximately 400 cc of fluid was removed, bloody fluid began to return via the endo tracheal tube. This was reported upon initial intubation. Respiratory therapy and subsequently Dr. Sang parisi were notified. Patient's nurse was present for the procedure. Procedure was continued until 700 cc was removed and pleural drainage stopped. / thoracentesis [id number] IMPRESSION: 1. Ultrasound-guided RIGHT thoracentesis with removal of approximately 700 cc of bloody fluid 2. No pneumothorax on postthoracentesis chest radiograph with improved aeratio n of the RIGHT lung. Findings discussed with Dr. Munoz at the end of procedure 05/26/2024
[2024-05-26 13:11] LABS: Vitamin B12 551 pg/mL (232-1245)
--- NOTE | 2024-05-26 13:26 | PHA.VACGOAL ---
Vancomycin Goal - Goal Vancomycin Goal:: 15-20 mg/L Vancomycin Indication:: Pneumonia - Therapy Current therapy:: Pip/Tazo Day of therpy:: Day [1]of [] . Actual body weight (kg): 92.3 kg - Data Labs: WBC 1.88 10^3/uL (3.29-11.43) L 05/26/24 11:03 RBC 1.92 10^6/uL (3.85-5.65) L 05/26/24 11:03 Hgb 6.00 g/dL (11.27-16.99) L* 05/26/24 11:03 Hct 20.3 % (36-47) L* 05/26/24 11:03 MCV 105.7 fl (85-98) H 05/26/24 11:03 MCH 31.3 pg (27-33) 05/26/24 11:03 MCHC 29.6 g/dL (30-55) L 05/26/24 11:03 RDW 18.0 % (12.1-15.1) H 05/26/24 11:03 Sodium 138 mmol/L (136-145) 05/26/24 11:03 Potassium 3.6 mmol/L (3.5-5.1) 05/26/24 11:03 Chloride 103 mmol/L (98-107) 05/26/24 11:03 Carbon Dioxide 25 mmol/L (22-29) 05/26/24 11:03 Anion Gap 13.6 (5-19) 05/26/24 11:03 BUN 23 mg/dL (8-23) 05/26/24 11:03 Creatinine 1.6 mg/dL (0.5-0.9) H 05/26/24 11:03 GFR Calculation Not Reportable 05/26/24 11:03 Treatment plan:: new consult Regimen:: Patient is 73 year old female being treated for pneumonia. MRSA PCR nasal swab ordered. Received vancomycin dose of 1000 mg this morning 05/26 @0200. Dialysis schedule of Sunday, , Sunday. However, receiving dialysis today. 1000 mg dose ordered post dialysis. No load dose given. Vancomycin level 05/27 with AM labs. Pharmacy will continue to monitor daily.
[2024-05-26] MEDS: norepinephrine 4 MG/250 ML BAG 33.75 MG IV (13:49)
[2024-05-26] MEDS: azithromycin 500 MG in sodium chloride 0.9% 250 ML 250 MG IV (14:51)
[2024-05-26] MEDS: piperacillin-tazobactam 3.375 GM in sodium chloride 0.9% (plus) 50 ML IV (14:52)
--- NOTE | 2024-05-26 15:29 | P.PN_ITS ---
Subjective 2 Subjective: Admitted earlier today morning. Currently on Levophed of 4, undergoing hemodialysis. Mean artery pressure maintained around 65 on Levophed. Appreciate ventilator setting with tidal volume of 450, FiO2 of 40%, PEEP of 5. Vitals/I&O/Wt Last Vital Signs Temp 97.5 F L 05/26/24 12:48 Pulse 93 05/26/24 13:46 Resp 17 05/26/24 13:48 BP 149/88 05/26/24 13:15 Pulse Ox 99 05/26/24 13:48 O2 Del Method Mechanical Ventilation 05/26/24 13:46 O2 Flow Rate 10 05/26/24 00:55 FiO2 26 05/26/24 13:48 05/26/24 05/26/24 05/26/24 06:59 14:59 22:59 Intake Total 2867.343 / 2867.343 724.189 / 724.189 Output Total Balance 2867.343 / 2867.343 702.189 / 702.189 Weight last 48 hrs Weight 92.3 kg Weight 91.626 kg Physical Exam 2 Const: COMMON NORMALS: patient oriented x3 and alert GENERAL APPEARANCE: p atient mechanically ventilated NUTRITIONAL APPEARANCE: overweight O RIENTATION/CONSCIOUSNESS: not awake HENMT: COMMON NORMALS: oropharynx normal Eye: OTHER: Pupils equal. Neck/C-Spine: COMMON NORMALS: no JVD Resp: EFFORT & INSPECTION: Yes other (Coarse lung sounds.) AUSCULTATION: c rackles and diminished lung sounds Cardio: COMMON NORMALS: no JVD, regular rhythm, S1 normal heart sound present, S2 normal heart sound present and No murmurs present (Cardio) RHYTHM: regular rhythm HEART SOUNDS: S1 normal heart sound present and S2 normal heart sound present GI: COMMON NORMALS: Normal to inspection, nondistended, normoactive bowel sounds present, Soft to palpation and non-tender PALPATION: Yes Soft to palpation Extremity: COMMON NORMALS: no joint enlargement and no pedal edema Neuro: COMMON NORMALS: patient oriented x3 and moves all extremities S ENSORIUM/ORIENTATION: Yes alert Skin: COMMON NORMALS: no rashes or lesions noted GENERAL SKIN EXAM: no rashes or lesions noted Urinary Catheter Management: Manzanares: Cath Placed During This Visit: yes Reason for Continuing Indwelling Catheter: Accurate Measurement of Urinary Output in Critically Ill Patients Urinary Catheter Date of Insertion: 05/26/24 Urinary Catheter Time of Insertion: 01:10 Quick SOFA Score: Respiratory Rate: 18 Blood Pressure: 144/46 [place] Coma Scale: 11 qSOFA Score: 1 If qSOFA score 2 or greater, continue: PaO2/FiO2 Ratio (mmHg): 295 Blood Pressure Mean: 78 Norepinephrine Current Rate (?g/kg/min): 4 Bilirubin (mg/dl): 0.4 Platelets (x10?/ml): 31 Creatinine (mg/dl): 1.6 SOFA Score: 12 Evaluation: Current stage of sepsis: septic shock Sepsis stage criteria used: [facility] Sep-1 and Sepsis-3 Crystalloid fluids: no fluids ordered Reasons: renal failure Blood cultures ordered: Yes Possible source: pulmonary Focused Exam: Vital signs: Temp Pulse Resp BP Pulse Ox O2 Del Method O2 Flow Rate 05/26/24 16:00 61 144/46 76 L Nasal Cannula 2 05/26/24 15:45 103 H 59/40 97 Ambu-Bag 05/26/24 15:30 102 H 108/71 81 L Mechanical Ventila tion 05/26/24 15:15 110 H 120/79 90 Mechanical Ventila tion 05/26/24 15:00 107 H 117/58 91 Mechanical Ventila tion 05/26/24 14:45 116 H 127/83 92 Mechanical Ventila tion 05/26/24 14:30 95 111/74 95 Mechanical Ventila tion 05/26/24 14:15 96 18 109/69 98 Mechanical Ventila tion 05/26/24 14:00 113 H 16 139/99 94 Mechanical Ventila tion 05/26/24 13:48 17 99 05/26/24 13:46 93 16 100 Mechanical Ventila tion 05/26/24 13:45 91 158/89 100 Mechanical Ventila tion 05/26/24 13:30 85 157/84 100 Mechanical Ventila tion 05/26/24 13:15 91 16 149/88 100 Mechanical Ventila tion 05/26/24 13:00 7 L 16 109/69 Mechanical Ventila tion 05/26/24 12:48 97.5 F L 93 16 133/80 100 05/26/24 12:45 90 16 132/87 100 Mechanical Ventila tion 05/26/24 12:30 81 16 122/81 100 Mechanical Ventila tion 05/26/24 12:15 80 16 119/65 100 Mechanical Ventila tion 05/26/24 12:00 97.5 F L 83 16 119/80 100 Mechanical Ventila tion 05/26/24 11:45 90 118/84 100 Mechanical Ventila tion 05/26/24 11:35 97.3 F L 86 16 118/84 100 05/26/24 11:30 87 16 131/80 100 Mechanical Ventila tion 05/26/24 11:27 97.3 F L 105 H 27 H 86/54 05/26/24 11:15 90 16 112/69 99 Mechanical Ventila tion 05/26/24 11:00 83 16 106/66 100 Mechanical Ventila tion 05/26/24 10:46 16 100 05/26/24 10:45 107 H 16 103/71 100 Mechanical Ventila tion 05/26/24 10:30 90 16 86/54 98 Mechanical Ventila tion 05/26/24 10:15 16 109/69 Mechanical Ventila tion 05/26/24 10:00 107 H 16 90/61 96 Mechanical Ventila tion 05/26/24 09:45 16 109/69 05/26/24 09:30 98 16 91/64 94 Mechanical Ventila tion 05/26/24 09:15 101 H 16 100/58 100 Mechanical Ventila tion 05/26/24 09:00 97 16 107/63 99 Mechanical Ventila tion 05/26/24 08:45 86 108/64 100 Mechanical Ventila tion 05/26/24 08:30 98 16 107/67 100 Mechanical Ventila tion 05/26/24 08:29 98 Mechanical Ventila tion 05/26/24 08:26 88 16 98 Mechanical Ventila tion 05/26/24 08:15 86 16 107/73 97 Mechanical Ventila tion 05/26/24 08:04 16 98 05/26/24 08:00 91 16 108/71 95 Mechanical Ventila tion 05/26/24 07:45 86 16 107/64 95 Mechanical Ventila tion 05/26/24 07:30 97 16 108/69 95 Mechanical Ventila tion 05/26/24 07:15 94 16 98/61 95 Mechanical Ventila tion 05/26/24 07:00 80 16 83/47 94 Mechanical Ventila tion 05/26/24 06:57 Mechanical Ventila tion 05/26/24 06:45 97.5 F L 99 94 Mechanical Ventila tion 05/26/24 06:30 109/69 Mechanical Ventila tion 05/26/24 06:15 102 H 16 101/58 92 05/26/24 06:10 96 16 87/57 74 L 05/26/24 06:05 87 18 87/57 94 05/26/24 06:00 102 H 18 116/70 94 05/26/24 05:55 90 21 H 110/60 94 05/26/24 05:50 96 16 117/62 93 05/26/24 05:45 101 H 16 117/70 93 05/26/24 05:40 95 16 113/71 93 05/26/24 05:35 101 H 22 H 112/66 93 05/26/24 05:30 89 16 105/61 93 05/26/24 05:25 102 H 16 105/54 95 05/26/24 05:20 96/59 100 05/26/24 05:15 96/59 05/26/24 05:15 76 19 H 112/65 100 05/26/24 05:10 96/59 05/26/24 05:10 83 84/53 05/26/24 05:05 96/59 05/26/24 05:00 96/59 05/26/24 05:00 84 103/67 100 05/26/24 04:55 96/59 05/26/24 04:50 96/59 05/26/24 04:45 96/59 05/26/24 04:45 84 93/61 100 05/26/24 04:40 96/59 05/26/24 04:40 91 115/70 100 05/26/24 04:39 86 24 H 111/83 100 05/26/24 04:35 96/59 05/26/24 04:30 96/59 05/26/24 04:30 103 H 11 L 89/56 05/26/24 04:28 96 11 L 98/57 05/26/24 04:25 110 H 16 96/59 94 05/26/24 04:23 95 16 102/58 94 FiO2 05/26/24 16:00 05/26/24 15:45 100 05/26/24 15:30 30 05/26/24 15:15 30 05/26/24 15:00 30 05/26/24 14:45 30 05/26/24 14:30 30 05/26/24 14:15 30 05/26/24 14:00 30 05/26/24 13:48 26 05/26/24 13:46 26 05/26/24 13:45 05/26/24 13:30 30 05/26/24 13:15 30 05/26/24 13:00 30 05/26/24 12:48 05/26/24 12:45 30 05/26/24 12:30 30 05/26/24 12:15 30 05/26/24 12:00 30 05/26/24 11:45 30 05/26/24 11:35 05/26/24 11:30 30 05/26/24 11:27 05/26/24 11:15 30 05/26/24 11:00 30 05/26/24 10:46 30 05/26/24 10:45 30 05/26/24 10:30 30 05/26/24 10:15 30 05/26/24 10:00 30 05/26/24 09:45 30 05/26/24 09:30 30 05/26/24 09:15 30 05/26/24 09:00 30 05/26/24 08:45 30 05/26/24 08:30 30 05/26/24 08:29 30 05/26/24 08:26 30 05/26/24 08:15 05/26/24 08:04 30 05/26/24 08:00 05/26/24 07:45 24 05/26/24 07:30 24 05/26/24 07:15 05/26/24 07:00 05/26/24 06:57 05/26/24 06:45 05/26/24 06:30 05/26/24 06:15 05/26/24 06:10 05/26/24 06:05 05/26/24 06:00 05/26/24 05:55 05/26/24 05:50 05/26/24 05:45 05/26/24 05:40 05/26/24 05:35 05/26/24 05:30 05/26/24 05:25 05/26/24 05:20 05/26/24 05:15 05/26/24 05:15 05/26/24 05:10 05/26/24 05:10 05/26/24 05:05 05/26/24 05:00 05/26/24 05:00 05/26/24 04:55 05/26/24 04:50 05/26/24 04:45 05/26/24 04:45 05/26/24 04:40 05/26/24 04:40 05/26/24 04:39 05/26/24 04:35 05/26/24 04:30 05/26/24 04:30 05/26/24 04:28 05/26/24 04:25 05/26/24 04:23 Respiratory exam: crackles present, diminished lung sounds and mechanicaly ventilated Cardiovascular exam: regular rhythm, S1 normal heart sound and S2 normal heart sound Skin exam: no rashes or lesions identified Date exam was performed: 05/26/24 Time exam was performed: 16:16 2 Sepsis Screen No Definite Risk 05/26/24 06:15 Respiratory Rate 18 breaths/min (12 - 18) 05/26/24 14:15 Blood Pressure 144/46 mmHg 05/26/24 16:00 [place] Coma Scale Score 11 05/26/24 08:00 Quick SOFA Score 0 05/26/24 06:15 SOFA Score: 2 ABG PO2/FiO2 Ratio 295 05/26/24 02:29 Brant Coma Scale Score 11 05/26/24 08:00 Blood Pressure Mean 78 mmHg 05/26/24 16:00 Total Bilirubin 0.4 mg/dL (0.15-1.2) 05/26/24 02:17 Platelet Count 31 10^3/cmm (157-399) L 05/26/24 11:03 Creatinine 1.6 mg/dL (0.5-0.9) H 05/26/24 11:03 Data 05/26/24 11:03 05/26/24 11:03 Micro: Microbiology 05/26/24 01:15 Gram Stain - Final Sputum - Endotracheal Tube Aspirate 05/26/24 01:09 Blood Culture - Preliminary Blood SPECIMEN COLLECTED 05/26/24 01:07 Blood Culture - Preliminary Blood SPECIMEN COLLECTED A&P Assessment and plan (1) Acute hypoxic respiratory failure: Acute hypoxic respiratory failure. Requiring mechanical ventilation. Most likely in setting of congestive heart failure with concerns for pulmonary hypertension in a patient with end-stage renal disease on hemodialysis. Patient does have significant bilateral pleural effusion most likely in setting of congestive heart failure and underlying cirrhosis. Also history of grade 2 diastolic dysfunction pulm hypertension, cardiomegaly. Check sputum culture, follow-up blood culture. Check bacterial antigen. Patient has history of pneumonia with ESBL along with MRSA. For now continue with IV Zosyn and vancomycin. Appropriate as per culture sensitivities from the past. Continue mechanical ventilation for now. Supplementation keeping saturation over 90%. Maintain sedation with propofol and fentanyl. Plan for thoracentesis given significant pleural effusion with recurrent admissions with respiratory failure. (2) Pancytopenia: Unclear cause of pancytopenia, DIC profile has been requested. Could be secondary to sepsis with pneumonia, treat Pneumonia/infection as above. DIC panel appreciated. DIC score of 4. Not suggestive of overt DIC. Patient is on methotrexate as an outpatient cannot rule out thrombocytopenia and pancytopenia in setting of myelodysplastic syndrome versus methotrexate toxicity. Follow-up peripheral blood smear. Target hemoglobin more than 8. Transfuse to do PRBC. Appreciate recent iron panel and vitamin B12 levels. Repeat hemoglobin after transfusion. Given thrombocytopenia for now we will continue with SCD for DVT prophylaxis. Hold off on medical prophylaxis. (3) Acute encephalopathy: Acute metabolic encephalopathy with respiratory failure, hypoxia, possible sepsis, pneumonia, CHF exacerbation, additionally with thrombocytopenia. Treat underlying conditions as above. Obtain plain CT head. (4) Shock: Cardiogenic versus septic. Mean arterial pressure target over 65. Wean Levophed accordingly. Had home dose of midodrine 10 mg 3 times daily. (5) Anemia: As above. (6) End stage renal disease on dialysis: Nephrology on board. Plan for urgent dialysis. Most likely will repeat dialysis in a.m. (7) Chronic atrial fibrillation: Currently rate controlled. Continue with home dose of amiodarone. Not on anticoagulation given chronic anemia with a history of GI bleed. (8) Type 2 diabetes mellitus: Appreciate recent A1c. Change sliding scale to every 6 hourly. (9) Acute respiratory distress: As above. Plan Goals of care discussion: Per discussion of CODE STATUS with her , several hospitalizations ago she had not wanted chest compressions, was only okay with mechanical ventilation, however, has had 2 admissions since then of where she had been full code. As per discussion with the , full code at current time, this may change depending on condition and further developments. 05/26: Will have further dose oral care discussion with once available at bedside. CAD, Complete troponin EKG series. Reviewed recent echocardiogram, grade 3 diastolic dysfunction, pulmonary hypertension. Diastolic congestive heart failure, Echocardiogram reviewed from earlier with noted grade 2 diastolic dysfunction. Pulmonary hypertension. Mild MVR. Mild TVR. Pulmonary hypertension, Severe pulmonary rotation per recent TTE. A-fib, Continue amiodarone. Low-dose Aspirin. Hold metoprolol due to hypotension. COPD, Difficult to tell if having component of additional exacerbation. Antibiotics as above. Breathing treatments. Sleep apnea not on CPAP, Liver cirrhosis, With hypoalbuminemia. Will give albumin. Myasthenia gravis, Seronegative rheumatoid arthritis, Hold methotrexate. History of C. difficile, No diarrhea Hypothyroidism, Check TSH. Levothyroxine. Depression, Hold sertraline with thrombocytopenia, risk of bleeding. Other medical problems Attestations 2 Medical Necessity Statement*: Requires further hospitalization for management of acute on chronic hypoxic respiratory failure, shock in setting of diastolic heart failure, end-stage renal disease on hemodialysis with concern for underlying pneumonia Critical Care Time: The high probability of a clinically significant, sudden or life threatening deterioration of the patient's [cardiac, pulmonary, renal] system(s) required my full and direct attention, intervention and personal management. The critical care time is as shown. This time is in addition to time spent performing any reported procedures but includes the following: [x] Data and vital sign review and interpretation [x] Patient assessment, examination and intervention [x] Documentation [x] Medication orders and management Critical Care Time (min): 80 Coding Level of Care Code Critical Care >/= 30 minutes Critical care time (in minutes): 80 The high probability of a clinically significant, sudden or life threatening deterioration, as referenced in this documentation, required my full and direct attention, intervention and personal management. The critical care time shown is in addition to time spent performing any reported separately billable procedures and includes the following: [x] Data and vital sign review and interpretation [x ] Patient assessment, examination and intervention [x] Medication orders and management [x] Patient/Family updates as able [x] Care Coordination and Documentation. Other Coding Information This patient has a high probability of clinically significant, sudden or life threatening deterioration of the patient's (neurological/pulmonary/cardiac/renal/ID/endocrine) systems required my full, direct attention, the highest level of physician preparedness for urgent intervention and personal management. I managed/supervised life or organ supporting interventions that required frequent physician assessment. I devoted my full attention in the ICU to the direct care of this patient for the period of time indicated above. Time I spent with family or surrogate(s) is included only if the patient was incapable of providing necessary information or participating in decision making. This time includes the following services provided: Telemetry review Mechanical Ventilation Hemodynamic interpretation, assessment and management Review and interpretation of CXR Review and interpretation of lab values Review and interpretation of microbiologic data and culture results Review of medications and administration Review and interpretation of Nutrition requirements and management Discussion of management with other consultants and services Clinical update to family members Diagnoses Acute hypoxic respiratory failure J96.01 Pancytopenia D61.818 Acute encephalopathy G93.40 Shock R57.9 Anemia D64.9 End stage renal disease on dialysis N18.6; Z99.2 Chronic atrial fibrillation I48.20 Type 2 diabetes mellitus E11.9 Acute respiratory distress R06.03
--- NOTE | 2024-05-26 15:35 | XR_ITS ---
WS: [id number] CHEST XRAY TECHNIQUE: Portable chest. CLINICAL INFORMATION: post thoracentis,line placements, bloody ETT COMPARISON: Radiograph 05/26/2024 FINDINGS: Enteric tube with tip below the diaphragm. Endotracheal tube with tip 2.1 cm above the humberto. RIGHT central venous catheter with tips in the distal SVC unchanged. Heart: Cardiomegaly. Aortic calcification. Lungs: Improved RIGHT pleural effusion status post thoracentesis. Improved aeration of the RIGHT lung . No pneumothorax. Interstitial infiltrates in the lungs bilaterally likely due to pulmonary edema. P ersistent consolidation RIGHT lower lobe. Small LEFT pleural effusion with LEFT basilar atelectasis. Bones: Osteopenia. XR/XR chest 1V portable [id number] IMPRESSION: 1. Improved RIGHT pleural effusion status post thoracentesis. Improved aeratio n of the RIGHT lung. No pneumothorax. 2. Interstitial infiltrates in both lungs bilaterally likely due to pulmonary edema. Consider re-expansion pulmonary edema in the RIGHT lung. 3. Persistent consolidation RIGHT lower lobe. 4. Endotracheal tube with tip 2 cm above the humberto. 5. Stable small LEFT pleural effusion with LEFT basilar atelectasis.
--- NOTE | 2024-05-26 15:46 | ECG_ITS ---
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 Measurements Intervals [place] Rate: 88 P: 0 [place]: 0 QRS: 262 QRSD: 200 T: 0 QT: 440 QTc: 535 Interpretive Statements ATRIAL FIBRILLATION RIGHT AXIS DEVIATION [QRS AXIS > 100] RIGHT BUNDLE BRANCH BLOCK [120+ ms QRS DURATION, UPRIGHT V1, 40+ ms S IN I/aVL/V4/V5/V6] ANTERIOR MYOCARDIAL INFARCTION , PROBABLY RECENT [40+ ms Q WAVE AND/OR ST/T ABNORMALITY IN V3/V4] INFERIOR MYOCARDIAL INFARCTION , POSSIBLY ACUTE [40+ ms Q WAVE AND/OR ST/T ABNORMALITY IN II/aVF] ACUTE ID Compared to ECG 05/26/2024 08:14:22 Right-axis deviation now present Left anterior fascicular block no longer present Electronically Signed On 05-26-2024 18:41:49 CDT by Victoriano White M.D. [id number]
--- NOTE | 2024-05-26 16:00 | PC.NURSE ---
Pt receiving thoracentisis on her right side around 1535. She was lateral lying on her left. O2 sats decreased to 80%, boosted Oxygen on vent to 100%, O2 sas improved to 92. Thoracentisis finished quickly. Then Gianfranco red blood starting flowing out of her ETT, suctioning provided. OS2 sats decreased. RT notified, arrived and continued suctioning, having difficulty bet her to vent . is here. Switched to AMBu bag. Dr Hamilton notified. Stat chest xray ordered and completed. Pt went rosi then asystole. Chest compressions started. CODE called. 2 complete rounds of CPR, and 2 epi. At 1550 resuscitation stopped.. at request of . Then a faint pulse noted. Per request, pt emulated to comfort care on 2lpm/NC
--- NOTE | 2024-05-26 16:05 | PC.NURSE ---
TOD 1605.
--- NOTE | 2024-05-26 16:18 | P.PNCC_ITS ---
Critical Care Event Note The high probability of a clinically significant, sudden or life threatening deterioration of the patient's [] system(s) required my full and direct attention, intervention and personal management. The critical care time is as shown. This time is in addition to time spent performing any reported procedures but includes the following: [x] Data and vital sign review and interpretation [x] Patient assessment, examination and intervention [x] Documentation [x] Medication orders and management Add on 1534 protocol from nurse that during thoracentesis after removing around 700 cc of serosanguineous fluid from the right chest. Patient developed hypotension and desaturation along with bloody discharge from the ET tube. Having difficulty maintaining saturation and being converted from mechanical ventilation to Ambu bag to ET tube. On reaching the bedside patient was on Levophed of 20, mean arterial pressure of 60, maintaining saturation in mid 80s on Ambo to et tube. at bedside. Stat chest x-ray was done which ruled out pneumothorax. Patient's Levophed requirement continued to trend up with requiring vaso. During the event patient developed bradycardic asystole for which CPR was started. Patient received 2 cycles of ACLS protocol CPR. During the event further goals of care discussions were done with at bedside. We discussed frequent readmissions, extensive comorbidities along with baseline health and quality of life. We discussed that there is a higher chance of patient having hemorrhagic shock due to bleeding into her lungs which is causing her to have poor compliance to the mechanical ventilator, worsening of the shock. We discussed going forward the plan would be to possibly transfer her after stabilizing with possible further blood transfusion, ACLS protocol CPR with high vasopressors to a tertiary center for possible pulmonary consultation and bronchoscopy need with possible need for bronchial stents as no broadcast meteorologist is available currently at our hospital. After discussing further states giving her comorbidities, significant th rombocytopenia she will probably not do well and would not want to live in those situations and she already is and hence requested for CPR to be stopped. CPR was stopped, patient was extubated to comfort care. Eventually patient at 1605 and comfortable status with at bedside. Please consider this as summary. Critical Care Time Code activated: Yes Critical Care Time (min): 60 Coding Level of Care Code Acute Code for Chg Fwd
--- NOTE | 2024-05-26 16:35 | PC.NURSE ---
Dentures: Gerardo took pt's dentures with him
[2024-05-26 16:46] LABS: Basophils % 0.9 %; Eosinophils # 0.1 10^3/uL (0.0-0.8); Eosinophils % 2.3 %; Hematocrit 30.4 % (36-47); Lymphocytes # 0.7 10^3/uL (0.8-4.8); Lymphocytes % 32.4 %; Mean Corpuscular HGB Conc 31.6 g/dL (30-55); Mean Corpuscular Hemoglobin 30.8 pg (27-33); Mean Corpuscular Volume 97.4 fl (85-98); Monocytes % 1.8 %; Neutrophils # 1.35 10^3/uL (1.8-7.7); Neutrophils % 61.7 %; Nucleated Red Blood Cells % 0.9 %; Platelet Count 32 10^3/cmm (157-399); Red Blood Count 3.12 10^6/uL (3.85-5.65); Red Cell Distribution Width 18.4 % (12.1-15.1); White Blood Count 2.19 10^3/uL (3.29-11.43)
--- NOTE | 2024-05-26 16:51 | PC.NURSE ---
CODE BLUE; Patient found to be in cardiac arrest. CPR initiated and code blue called overhead. 1546 CPR started/Code Blue called overhead 1547 Epi IVP 1549 Pulse Check/CPR (Asy) 1550 Epi IVP 1550 CPR paused per order from Dr Buenrostro to check pulse. Pt cardiac rhythm showing Asy at check. ACLS terminated due to patient's family request for patient to become comfort care. Official TOD 1605 [facility] notified and was briefly placed on a hold. [facility] called [facility] back and stated patient was a full release for them, and referral for [facility] in progress. 1640 [facility] called and gave full release for them as well at this time. Family currently at bedside with patient.
--- NOTE | 2024-05-26 16:54 | PC.NURSE ---
Addendum entered by Darlene Avelar RN 05/26/24 17:02: Witnessed waste Original Note: Medication wastes: Fentanyl and Propofol waste. Propofol full bottle also wasted. See EMAR. Witnessed by Darlene Avelar RN
--- NOTE | 2024-05-26 17:00 | PC.NURSE ---
Peripheral IV and Central line removed with cath tips intact. Manzanares cath removed intact. Post mortem care provided.
--- NOTE | 2024-05-26 17:15 | PC.NURSE ---
1713: [facility] representatives here for body transfer.
== END 2024-05-26 17:13 | disposition expired | DRG 871 ==
LOC: ER 05:39 → ICU 06:25
PROVIDERS: Internal Medicine Nephrology; Admitting Provider Internal Medicine; Emergency Provider Emergency Medicine; PCP Internal Medicine; Visit Provider Student in an Organized Health Care Education/Training Program
DX: A41.9 Sepsis, unspecified organism (principal); G93.41 Metabolic encephalopathy; R65.21 Severe sepsis with septic shock; N18.6 End stage renal disease; J96.01 Acute respiratory failure with hypoxia; I50.33 Acute on chronic diastolic (congestive) heart failure; J18.9 Pneumonia, unspecified organism; I13.2 Hypertensive heart and chronic kidney disease with heart failure and with stage 5 chronic kidney disease, or end stage renal disease; D61.818 Other pancytopenia; F33.9 Major depressive disorder, recurrent, unspecified; I48.20 Chronic atrial fibrillation, unspecified; J90 Pleural effusion, not elsewhere classified; E03.9 Hypothyroidism, unspecified; Z79.899 Other long term (current) drug therapy; E11.22 Type 2 diabetes mellitus with diabetic chronic kidney disease; Z99.2 Dependence on renal dialysis; I25.10 Atherosclerotic heart disease of native coronary artery without angina pectoris; I27.20 Pulmonary hypertension, unspecified; J44.9 Chronic obstructive pulmonary disease, unspecified; M79.7 Fibromyalgia; E78.5 Hyperlipidemia, unspecified; M06.042 Rheumatoid arthritis without rheumatoid factor, left hand; M06.041 Rheumatoid arthritis without rheumatoid factor, right hand; F43.12 Post-traumatic stress disorder, chronic; Z96.659 Presence of unspecified artificial knee joint; I45.10 Unspecified right bundle-branch block; Z90.49 Acquired absence of other specified parts of digestive tract; Z90.710 Acquired absence of both cervix and uterus; Z79.890 Hormone replacement therapy; Z79.4 Long term (current) use of insulin; Z79.82 Long term (current) use of aspirin; Z88.5 Allergy status to narcotic agent; Z91.048 Other nonmedicinal substance allergy status; I25.2 Old myocardial infarction; Z86.73 Personal history of transient ischemic attack (TIA), and cerebral infarction without residual deficits; Z91.81 History of falling; Z99.81 Dependence on supplemental oxygen; Z86.16 Personal history of COVID-19; Z87.440 Personal history of urinary (tract) infections; Z87.891 Personal history of nicotine dependence; Z11.52 Encounter for screening for COVID-19; G47.33 Obstructive sleep apnea (adult) (pediatric); E83.42 Hypomagnesemia; K74.60 Unspecified cirrhosis of liver; G70.00 Myasthenia gravis without (acute) exacerbation; Z86.14 Personal history of Methicillin resistant Staphylococcus aureus infection; D64.9 Anemia, unspecified; D69.6 Thrombocytopenia, unspecified; Z87.01 Personal history of pneumonia (recurrent)
CPT/HCPCS: 0241U; 32555; 36415; 36416; 36430; 36600; 51702; 70450; 71045; 71275; 80048; 80053; 80503; 81001; 82533; 82607; 82805; 82962; 83605; 83735; 83880; 84443; 84484; 85025; 85362; 85378; 85384; 85610; 85730; 86403; 86850; 86900; 86920; 87040; 87070; 87205; 90935; 93005; 93970; 94002; 94640; 94664; 94799; 96372; J0330; J0456; J1644; J1815; J2470; J2543; J2704; J3010; J3370; J3475; J3490; J7030; J7050; P9016; P9046